=== PATIENT | male | born 1955 | race Caucasian/White ===

== ENCOUNTER 2023-11-26 11:55 | Outpatient (OUT) | payer MEDICARE, SELFPAY ==
--- NOTE | 2023-11-26 12:04 | XR_ITS ---
The [address] [address] Patient Name: VASHTI MASSEY MRN: [id number] date: 1955 Sex: M Assigned Patient Location: RAD Current Patient Location: RAD Accession/Order Number: [id number] Exam Date: 11/26/2023 12:10 Report Date: 11/26/2023 12:32 At the request of: ELEAZAR MAYORGA Procedure: XR hand RT min 3V PROCEDURE: XR wrist RT min 3V, XR hand RT min 3V COMPARISON: None. HISTORY: Cerebral atherosclerosis I67.2 FINDINGS: BONES:No acute fracture or dislocation. Contour deformity of the scaphoid with a single surgical anchor in the distal pole. Moderate to severe degenerative changes with [id number] articulation of the radial lunate joint. Marginal osteophyte formation. SOFT TISSUES:Negative. No visible soft tissue swelling. EFFUSION:None visible. 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
--- NOTE | 2023-11-26 12:05 | XR_ITS ---
The [address] [address] Patient Name: VASHTI MASSEY MRN: [id number] date: 1955 Sex: M Assigned Patient Location: RAD Current Patient Location: RAD Accession/Order Number: [id number] Exam Date: 11/26/2023 12:10 Report Date: 11/26/2023 12:32 At the request of: ELEAZAR MAYORGA Procedure: XR wrist RT min 3V PROCEDURE: XR wrist RT min 3V, XR hand RT min 3V COMPARISON: None. HISTORY: Cerebral atherosclerosis I67.2 FINDINGS: BONES:No acute fracture or dislocation. Contour deformity of the scaphoid with a single surgical anchor in the distal pole. Moderate to severe degenerative changes with [id number] articulation of the radial lunate joint. Marginal osteophyte formation. SOFT TISSUES:Negative. No visible soft tissue swelling. EFFUSION:None visible. 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
== END 2023-11-26 11:56 | disposition home or self-care (01) ==
PROVIDERS: PCP Internal Medicine; Visit Provider Internal Medicine
DX: I67.2 Cerebral atherosclerosis (principal); S60.221A Contusion of right hand, initial encounter
CPT/HCPCS: 73110; 73130

== ENCOUNTER 2024-03-31 10:53 | Observation (INO) | payer MEDICARE, SELFPAY ==
[2024-03-31] VITALS (34 sets, daily range): BP systolic 116–174; BP diastolic 52–89; PULSE 65–88; TEMP 36.4–36.6; O2SAT 81–99; BMI 36.0; BMI 36.9
--- NOTE | 2024-03-31 11:01 | ED.GENADUL1 ---
HPI HPI - General Adult General Chief complaint: Extremity Injury, Lower Stated complaint: CLINIC REFERRAL Time Seen by Provider: 03/31/24 11:00 History of Present Illness HPI narrative: The patient is sent to us from his primary care doctor office, he had a fall almost a week ago when his left knee that he have a history of replacement of the knee in 2010. He developed infection on top of the knee and the p.o. antibiotic was not sufficient to controlling his symptoms. Yesterday he noticed some increase in the swelling and the pain as well as redness, no fever no chills no other concerns Related Data Home Medications ?Medication ?Instructions ?Recorded ?Confirmed aspirin 81 mg tablet,delayed mg 03/31/24 release atorvastatin 40 mg tablet mg 03/31/24 doxycycline hyclate 100 mg capsule mg 03/31/24 flash glucose scanning reader 03/31/24 03/31/24 (FreeStyle Kathie [employer]) flash glucose sensor (FreeStyle 03/31/24 03/31/24 Kathie 2 Sensor kit) insulin aspart U-100 100 unit/mL subcut 03/31/24 (3 mL) subcutaneous pen (Novolog FlexPen U-100 Insulin aspart) insulin glargine 100 unit/mL (3 unit subcut 03/31/24 mL) subcutaneous pen (Lantus Solostar U-100 Insulin) insulin syringe-needle U-100 1 mL 03/31/24 03/31/24 30 gauge x 7/16 losartan 25 mg tablet mg 03/31/24 meloxicam 15 mg tablet mg 03/31/24 Allergies Allergy/AdvReac Type Severity Reaction Status Date / Time No Known Drug Allergies Allergy Verified 03/31/24 11:00 Opioid HPI Opioid Management Most Recent Opioid Data: Last Pain Scale 5 03/31/24 11:23 Review of Systems ROS Status of ROS 10 or more systems reviewed and unremarkable except as noted in history and below Exam Narrative Exam Narrative: Nurses notes and vital signs reviewed and patient is not hypoxic. General: Well-appearing and in no apparent distress. Skin: Warm, dry, no pallor noted. No rash. Head: Normocephalic, atraumatic. Neck: Supple, non-tender. Eye: Pupils are equal, round and EOMI. No scleral icterus. Ears, Nose, Mouth, and Throat: TM are clear, no nasal mucosal hypertrophy. Oral mucosa is moist, no posterior oropharynx erythema, uvula is mid-line Cardiovascular: Regular Rate and Rhythm without murmur, gallop or rub. Respiratory: No accessory muscle use or respiratory distress. Lungs are clear to auscultation, no wheezing, rales or rhonchi Chest Wall: no tenderness Back: No midline thoracic or lumbar vertebral tenderness. No CVA tenderness Musculoskeletal: Left knee examination showed a scar of previous surgery that is healing but the patient at the mid of the knee just at the patella he have a area of almost 5 x 7 cm elevated with the middle with showing entrance point that is healing with an ulcer that is 1 cm stage II. The patient had fluctuation and the surrounding redness almost 3 to 4 cm from the elevation with mild tenderness and the patient also have swelling of the left lower extremity with 1+ pitting edema GI: Abdomen is soft, non-distended. Normal bowel sounds. No masses appreciated. No tenderness to palpation. No rebound, guarding, or rigidity noted. Neurological: A&O x4. No cranial nerve dysfunction observed. No truncal ataxia. Moves all extremities. Sensation intact. Psychiatric: Cooperative and interactive. Normal mood and affect. Constitutional Vital Signs, click to edit/add: Last Vital Signs Temp 97.7 F 03/31/24 11:00 Pulse 88 03/31/24 12:57 Resp 16 03/31/24 12:57 BP 174/73 H 03/31/24 14:15 Pulse Ox 97 03/31/24 14:15 O2 Del Method Room Air 03/31/24 11:00 Course Vital Signs Vital signs: Vital Signs Temperature 97.7 F 03/31/24 11:00 Pulse Rate 69 03/31/24 11:00 Respiratory Rate 16 03/31/24 11:00 Blood Pressure 152/86 H 03/31/24 11:00 Pulse Oximetry 97 03/31/24 11:00 Oxygen Delivery Method Room Air 03/31/24 11:00 Temperature 97.7 F 03/31/24 11:00 Pulse Rate 88 03/31/24 12:57 Respiratory Rate 16 03/31/24 12:57 Blood Pressure 174/73 H 03/31/24 14:15 Pulse Oximetry 97 03/31/24 14:15 Oxygen Delivery Method Room Air 03/31/24 11:00 Medical Decision Making MDM Narrative Medical decision making narrative: Patient CBC showed normal cytosis on the chemistry was within normal Clinical examination shows a high suspicion for abscess and an x-ray showed possibility of abscess or hematoma CAT scan with contrast shows bursitis The patient already had a blood culture obtained and Vanc and Zosyn started The patient case was discussed with and he requested the patient to be admitted under medicine he will evaluate the patient tonight in case he needs surgery tomorrow The patient case discussed with Dr. Lamb and he agreed with above-mentioned plan Lab Data Labs: Lab Results 03/31/24 03/31/24 Range/Units 11:34 11:45 WBC 5.2 (4.0-11.0) 10^3/uL RBC 4.45 L (4.70-6.10) 10^6/uL Hgb 13.5 L (14.0-18.0) g/dL Hct 39.4 L (42.0-54.0) % MCV 88.5 (80.0-94.0) fL MCH 30.3 (25.9-34.0) pg MCHC 34.3 (29.9-35.2) g/dL RDW 13.4 (11.0-15.0) % Plt Count 224 (150-450) 10^3/uL MPV 8.9 L (9.5-13.5) fL Neut % (Auto) 51.7 (43.0-75.0) % Lymph % (Auto) 33.9 (20.5-60.0) % Lamar % (Auto) 8.5 (1.7-12.0) % Eos % (Auto) 4.5 (0.9-7.0) % Baso % (Auto) 1.4 (0.2-2.0) % Neut # (Auto) 2.7 (1.4-6.5) 10^3/uL Lymph # (Auto) 1.8 (1.2-3.8) 10^3/uL Lamar # (Auto) 0.4 (0.3-0.8) 10^3/uL Eos # (Auto) 0.2 (0.0-0.7) 10^3/uL Baso # (Auto) 0.1 (0.0-0.1) 10^3/uL Abs Immat Gran (auto) 0.00 (0.00-0.03) 10^3/uL Imm/Tot Granulo (auto) 0.0 (0.0-0.5) % Sodium 139 (136-145) mmol/L Potassium 4.0 (3.5-5.1) mmol/L Chloride 101 (98-107) mmol/L Carbon Dioxide 28.8 (21.0-32.0) mmol/L Anion Gap 13.2 BUN 18.0 (7.0-18.0) mg/dL Creatinine 0.79 (0.70-1.30) mg/dL Est GFR ( Amer) >60 (>=60) Est GFR (Non-Af Amer) >60 (>=60) BUN/Creatinine Ratio 22.8 Glucose 74 (74-106) mg/dL Lactate 1.1 (0.4-2.0) mmol/L Calcium 8.9 (8.5-10.1) mg/dL Total Bilirubin 0.6 (0.2-1.0) mg/dL AST 12 L (15-37) U/L ALT 22 (16-63) U/L Alkaline Phosphatase 81 (46-116) U/L Total Protein 7.1 (6.4-8.2) g/dL Albumin 3.8 (3.4-5.0) g/dL Globulin 3.3 g/dL Albumin/Globulin Ratio 1.2 Discharge Plan Discharge Chief Complaint: Extremity Injury, Lower Clinical Impression: Cellulitis of knee, Inadequate response to therapy Bursitis Qualifiers: Bursitis location: knee Knee bursitis location: prepatellar bursitis Laterality: left Qualified Code(s): M70.42 - Prepatellar bursitis, left knee Patient Disposition: Admitted As Inpatient Time of Disposition Decision: 15:33
--- OUTSIDE RECORDS SUMMARY | 2024-03-31 11:08 | XMS_ITS | CCD ---
Author Organization [facility] Care Team Providers Care 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 Name Role Phone GREG, DR BUSH Primary Care Unavailable BALL, DR BUSH Attending Unavailable BALL, DR BUSH Admitting Unavailable BALL, DR BUSH Primary Care Unavailable BALL, DR BUSH Attending Unavailable BALL, DR BUSH Admitting Unavailable Ball Vinnie ESTRADA Primary Care Provider KONG GALLEGOS Referring Unavailable VINNIE GARZA Primary Care Unavailable Vinnie Garza Unavailable JASON RODRIGUEZ Attending Unavailable MALORIE YEBOAH Attending Unavailable VINNIE GARZA Referring Unavailable VINNIE GARZA Primary Care Unavailable MALORIE YEBOAH Referring Unavailable GREG, VINNIE Graham Primary Care Unavailable MALORIE YEBOAH Attending Unavailable MALORIE YEBOAH Referring Unavailable VINNIE GARZA Primary Care Unavailable TAWANNA, EHAD Attending Unavailable VINNIE GARZA Referring Unavailable GREG, VINNIE Graham Primary Care Unavailable SRAAH BARRETT Attending Unavailable VINNIE GARZA Primary Care Unavailable INPATIENT, TELENEUROLOGY Consulting Unavail able ABEBE ROLLINS Admitting Unavailab MALORIE Boyd Referring Unavailable VINNIE GARZA Primary Care Unavailable SARAH BARRETT Attending Unavailable SARAH BARRETT Referring Unavailable VINNIE GARZA Primary Care Unavailable HAMMAD PATEL Attending Unavailable HAMMAD PATEL Referring Unavailable VINNIE GARZA Primary Care Unavailable KONG GALLEGOS Attending Unavailable KONG GALLEGOS Referring Unavailable GREG, VINNIE Graham Primary Care Unavailable KONG GALLEGOS Attending Unavailable KONG GALLEGOS Referring Unavailable GREG, VINNIE Graham Primary Care Unavailable GREG, VINNIE Graham Referring Unavailable GREG, VINNIE Graham Primary Care Unavailable MALORIE YEBOAH Referring Unavailable GREG, VINNIE Graham Primary Care Unavailable Medications Current Medications Medication Drug Class(es) Dates Sig (Normalized) Sig (Original) aspirin 81 mg delayed release oral tablet (10 sources) Platelet Aggregation Inhibitor, Nonsteroidal Anti-inflammatory Drug Start: 01-22-2024 take 81 mg by mouth once daily Aspirin Active 81 MG PO Daily January 22, 2024 12:00am Start: 10-30-2023 take 1 tablet by piyush th in the morning aspirin 81 mg Take 1 tablet (81 mg total) by mouth in the morning. 30 tablet 1 10/30/2023 Active atorvastatin 40 mg oral tablet (10 sources) HMG-CoA Reductase Inhibitor Start: 01-22-2024 take 40 mg by mouth once daily Atorvastatin Active 40 MG PO Daily January 22, 2024 12:00am Start: 10-29-2023 take 1 tablet by piyush th once daily atorvastatin (LIPITOR) 40 mg tablet Take 1 tablet (40 mg total) by mouth nightly. 30 tablet 1 10/29/2023 Active Blood-Glucose Meter,Continuous (Freestyle Kathie 3 Thiells) misc (1 source) Start: 03-01-2024 Blood-Glucose Meter,Continuous (Freestyle Kathie 3 Thiells) misc Active 0 .Route 1 March 01, 2024 12:00am to test daily Blood-Glucose Sensor (Freestyle Kathie 3 Sensor) device (1 source) Start: 03-01-2024 Blood-Glucose Sensor (Freestyle Kathie 3 Sensor) device Active 0 .Route 2 March 01, 2024 12:00am to test blood sugar daily clopidogrel 75 mg oral tablet (5 sources) P2Y12 Platelet Inhibitor Start: 01-22-2024 take 1 tablet by mouth once daily Clopidogrel (Plavix) 75 mg tablet Active 75 MG PO Daily January 22, 2024 12:00am Start: 10-30-2023 End: 12-11-2023 take 1 tablet by mouth in the morning clopidogreL (PLAVIX) 75 mg tablet Take 1 tablet (75 mg total) by mouth in the morning. 30 tablet 1 10/30/2023 12/11/2023 Discontinued (Therapy completed) FreeStyle Kathie 2 Thiells - (4 sources) Start: 11-26-2023 FreeStyle Libr e 2 Thiells - Use to test home BS transcutaneous 4x daily for 365 days Oct, Active FreeStyle Kathie 2 Sensor - (4 sources) Start: 11-26-2023 FreeStyle Libr e 2 Sensor - Use to check home BS transcutaneous 4x daily for 30 days Oct, Active Insulin Admin Supplies - (2 sources) Start: 12-01-2023 Insulin Admin Supplies - as directed to use for insulin for 30 days Nov, Active Insulin Aspart U-100 (Novolog Flexpen U-100 Insulin) 100 unit/mL (3 mL) insulin pen (2 sources) Start: 01-22-2024 Insulin Aspart U-100 (Novolog Flexpen U-100 Insulin) 100 unit/mL (3 mL) insulin pen Active 1 sliding scale dose SUBCUT Use as Directed January 22, 2024 12:00am 3 ml insulin aspart, human 100 unt/ml pen injector (4 sources) Insulin Analog NovoLOG FlexPen 100 UNIT/ML 15units Subcutaneous tid for 30 days Active 3 ml insulin glargine 100 unt/ml pen injector (8 sources) Insulin Analog Start: 12-01-2023 Lantus SoloSta r 100 UNIT/ML 15u Subcutaneous q HS for 30 days Nov, Active Start: 10-29-2023 inject 15 [IU] by guzman bcutaneous injection in the morning insulin glargine (LANTUS, SEMGLEE) 100 unit/mL (3 mL) insulin pen Inject 15 Units under the skin in the morning and 15 Units before bedtime. 15 mL 12 10/29/2023 Active Start: 10-29-2023 inject 15 [IU] by guzman bcutaneous injection in the morning insulin glargine (LANTUS, SEMGLEE) 100 unit/mL (3 mL) insulin pen Inject 15 Units under the skin in the morning and 15 Units before bedtime. 15 mL 12 10/29/2023 Active inject 15 [IU] by guzman bcutaneous injection twice daily Lantus 100 UNIT/ML 15 units Subcutaneous bid for 30 days Active Insulin Glargine (Lantus U-100 Insulin) 100 unit/mL solution (2 sources) Start: 01-22-2024 inject 15 [IU] by subcutaneous injection twice daily Insulin Glargine (Lantus U-100 Insulin) 100 unit/mL solution Active 15 UNIT SUBCUT Twice daily January 22, 2024 12:00am 3 ml insulin lispro 100 unt/ml pen injector (2 sources) Insulin Analog Start: 10-29-2023 insulin lispro (HumaLOG) 100 unit/mL insulin pen Inject 2-10 Units under the skin 4 (four) times a day with meals and nightly. 151-200, give 2 units. 201-250, give 4 units. 251-300, give 6 units. 301-350, give 8 units. 351-400, give 10 units. 15 mL 12 10/29/2023 Active insulin lispro (HumaLOG) 100 unit/mL insulin pen (2 sources) Start: 10-29-2023 insulin lispro (HumaLOG) 100 unit/mL insulin pen Inject 2-10 Units under the skin 4 (four) times a day with meals and nightly. 151-200, give 2 units. 201-250, give 4 units. 251-300, give 6 units. 301-350, give 8 units. 351-400, give 10 units. 15 mL 12 10/29/2023 Active losartan potassium 25 mg oral tablet (2 sources) Angiotensin 2 Receptor Michael Start: 01-23-2024 take 25 mg by mouth once daily Losartan Active 25 MG PO Daily January 23, 2024 12:00am meloxicam 15 mg oral tablet (1 source) Nonsteroidal Anti-inflammatory Drug Start: 12-30-2023 take 1 tablet by mouth in the morning meloxicam (MOBIC) 15 mg tablet Indications: Arthritis of right knee Take 1 tablet (15 mg total) by mouth in the morning. 30 tablet 2 12/30/2023 Active Completed/Discontinued Medications Medication Drug Class(es) Dates Sig (Normalized) Sig (Original) carvedilol 3.125 mg oral tablet (4 sources) alpha-Adrenergic Michael, beta-Adrenergic Michael Start: 07-24-2021 take 1 tablet by mouth every twelve hours Carvedilol 3.125 MG 1 tablet with food Orally Twice a day for 30 days Jun, Not-Taking/PRN glimepiride 4 mg oral tablet (4 sources) Sulfonylurea Start: 06-15-2022 take 1 tablet by mouth once daily as needed Glimepiride 4MG Glimepiride 4MG, 1 (one) Tablet daily, 30 minutes prior to bkfst # 90, 06/15/2022, No Refill. Active Oral daily, 30 minutes prior to bkfst for 90 May, Not-Taking/PRN lisinopril 5 mg oral tablet (4 sources) Angiotensin Converting Enzyme Inhibitor Start: 10-16-2015 take 1 tablet by mouth every twenty-four hours Lisinopril 5 MG 1 tablet Orally Once a day for 0 days Sep, Not-Taking/PRN metFORMIN hydrochloride 1000 mg oral tablet (4 sources) Biguanide Start: 07-03-2021 metFORMIN HCl 1000MG metFORMIN HCl 1000MG, 1 (one) Tablet Before bkfst and evening meal # 180, 07/03/2021, Ref. x3. Active Oral Before bkfst and evening meal for 90 *Pick strength-form from [employer] for eRX* 07 Jun, 2021 Not-Taking/PRN NovoLIN 70/30 FlexPen Relion (70-30) 100UNIT/ML (4 sources) Start: 08-10-2020 inject 10 [IU] by subcutaneous injection at dinner NovoLIN 70/30 FlexPen Relion (70-30) 100UNIT/ML NovoLIN 70/30 FlexPen Relion (70-30) 100UNIT/ML, 20 unit SC 30 minutes prior to bkfst and 10 unit SC prior to evening meal # 5, 08/10/2020, Ref. x2. 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] Onset: 10-28-2023 10-31-2023 Chronic Diabetes mellitus with complications (20 sources) Type 2 diabetes mellitus; 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: [Type 2 diabetes mellitus with hyperglycemia] Onset: 10-28-2023 10-28-2023 Chronic Diabetes mellitus without complication (1 source) Type 2 diabetes mellitus without complications; 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: [Type 2 diabetes mellitus without complications] Onset: 11-05-2023 Chronic Disorders of lipid metabolism (17 sources) Mixed hyperlipidemia; 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: [Mixed hyperlipidemia] Onset: 10-28-2023 10-28-2023 Chronic Essential hypertension (10 sources) Essential hypertension; 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: [Essential (primary) hypertension] Chronic Late effects of cerebrovascular disease (4 sources) Sequela of cerebrovascular accident; 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: [Unspecified sequelae of cerebral infarction] Onset: 12-11-2023 12-11-2023 Chronic Osteoarthritis (6 sources) Arthritis of right knee; 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: [Unilateral primary osteoarthritis, right knee] Onset: 12-30-2023 12-30-2023 Chronic Other aftercare (4 sources) Long-term current use of insulin; 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: [skilled nursing (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 insulin] Episodic Other and ill-defined cerebrovascular disease (1 source) Cerebrovascular disease; 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: [Other cerebrovascular vasospasm and vasoconstriction] 10-31-2023 Chronic Other and ill-defined cerebrovascular disease (1 source) Other cerebrovascular vasospasm and vasoconstriction; 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: [Other cerebrovascular vasospasm and vasoconstriction] Onset: 10-31-2023 Chronic Other and ill-defined cerebrovascular disease (6 sources) Cerebral atherosclerosis; 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: [Cerebral atherosclerosis] 01-22-2024 Chronic Other and ill-defined cerebrovascular disease (4 sources) Cerebral atherosclerosis; 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: [Cerebral atherosclerosis] Chronic Other circulatory disease (1 source) Personal history of transient ischemic attack (TIA), and cerebral infarction without residual deficits Episodic Other nervous system disorders (3 sources) Abnormal gait; 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: [Unsteadiness on feet] Onset: 12-11-2023 12-11-2023 Episodic Other nervous system disorders (1 source) Unsteadiness on feet; 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: [Unsteadiness on feet] Onset: 12-11-2023 Episodic Other non-traumatic joint disorders (3 sources) Pain in right knee; 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: [Pain in joint, lower leg] Onset: 12-30-2023 12-30-2023 Episodic Residual codes; unclassified (4 sources) Altered mental status; 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: [Altered mental status, unspecified] Onset: 10-26-2023 10-28-2023 Episodic Residual codes; unclassified (1 source) Pain Onset: 12-30-2023 Episodic Substance-related disorders (10 sources) Nicotine dependence; 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: [Nicotine dependence, cigarettes, uncomplicated] Chronic Superficial injury; contusion (2 sources) Contusion of right wrist, initial encounter; 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: [Contusion of right hand, initial encounter] Episodic Unclassified (1 source) Blurred Vision, Facial Droop Onset: 10-26-2023 Past or Other Problems Problem Classification Problem Date Documented Date Episodic/Chronic Blindness and vision defects (7 sources) Blurring of visual image; 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: [Other visual disturbances] Onset: 10-26-2023 10-28-2023 Episodic Mood disorders (2 sources) Mood disorders Onset: 12-11-2023 12-11-2023 Other aftercare (3 sources) 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; 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: [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] Onset: 10-28-2023 Episodic Residual codes; unclassified (2 sources) Transient alteration of awareness; 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: [Transient alteration of awareness] Onset: 10-28-2023 12-11-2023 Episodic Residual codes; unclassified (1 source) Altered mental status, unspecified; 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: [Altered mental status, unspecified] Onset: 10-28-2023 Episodic Residual codes; unclassified (1 source) Hallucinations Onset: 10-26-2023 Episodic Results Test Name Value Interpretation Reference Range Facility XR Knee - right 4 Viewson Findings: Standing AP, Kennedy, lateral, and sunrise views of the right knee were obtained and reviewed by myself in clinic today. The patient has tricompartmental osteoarthritis mostly involving the medial compartment (s). There is 100% joint space narrowing, subchondral cysts, subchondral sclerosis, and peripheral osteophyte formation. The patient's osteoarthritis is Kellgren Izaiah Grade 4: Large osteophytes and marked joint space narrowing and severe sclerosis and definite bone end deformity. No evidence of fracture or other osseous abnormality. Impression: Severe osteoarthritis of the right knee with complete loss of medial compartment joint space and varus deformity. MANUALLY TRANSCRIBED RESULTS [facility] Radiology Study observation (narrative) [facility] BASIC METABOLIC PANLon 11-05 Anion gap [Moles/Vol] 11 mmol/L Normal - [facility] Comment on above: Performed By: #### P INR, 49582-8, CMP, 31756-4, 6873-4, 45579-5, CBCA, 4548-4 #### [facility] ([id number]) [address] [place] [address] #### HA1C #### [facility] ([id number]) [address], [address] [place] [address] Calcium [Mass/Vol] 8.8 mg/dL Normal 8.5-10.5 [facility] Comment on above: Performed By: #### P INR, 58027-5, CMP, 00101-2, 6873-4, 55794-0, CBCA, 4548-4 #### [facility] ([id number]) [address] [place] [address] #### HA1C #### [facility] ([id number]) [address], [address] [place] [address] Chloride [Moles/Vol] 96 mmol/L Low 98-109 [facility] Comment on above: Performed By: #### P INR, 45003-8, CMP, 90484-5, 6873-4, 53976-1, CBCA, 4548-4 #### [facility] ([id number]) [address] [place] [address] #### HA1C #### [facility] ([id number]) [address], [address] [place] [address] CO2 [Moles/Vol] 24 mmol/L Normal 22-32 [facility] Comment on above: Performed By: #### P INR, 54946-2, CMP, 88250-1, 6873-4, 16262-5, CBCA, 4548-4 #### [facility] ([id number]) [address] [place] [address] 15210 #### HA1C #### [facility] ([id number]) [address], [address] [place] [address] Creatinine [Mass/Vol] 0.75 mg/dL Normal 0.70-1.20 [facility] Comment on above: Result Comment: METH OD TRACEABLE TO IDMS STANDARD Performed By: #### P INR, 68320-3, CMP, 94448-4, 6873-4, 93756-8, CBCA, 4548-4 #### [facility] ([id number]) [address] [place] [address] #### HA1C #### [facility] ([id number]) [address] [facility], [address] [place] [address] eGFR (CKD-EPI) NON-RACE DEPENDENT >90 Normal >59 [facility] Comment on above: Result Comment: Reported eGFR is based on the CKD-EPI 2020 equation that does not use a race coefficient. Performed By: #### P INR, 33902-9, CMP, 14915-1, 6873-4, 28875-4, CBCA, 4548-4 #### [facility] ([id number]) [address] [place] [address] #### HA1C #### [facility] ([id number]) [facility], [address] [place] [address] Glucose [Mass/Vol] 263 mg/dL High 65-99 [facility] Comment on above: Performed By: #### P INR, 60137-3, CMP, 05192-1, 6873-4, 27485-5, CBCA, 4548-4 #### [facility] ([id number]) [address] [place] [address] 55666 #### HA1C #### [facility] ([id number]) [address] [place] [address], [address] [place] [address] Potassium [Moles/Vol] 4.2 mmol/L Normal 3.5-5.0 [facility] Comment on above: Performed By: #### P INR, 92105-8, CMP, 54770-9, 6873-4, 10002-0, CBCA, 4548-4 #### [facility] ([id number]) [address] [place] [address] #### HA1C #### [facility] ([id number]) [address], [address] [place] [address] Sodium [Moles/Vol] 131 mmol/L Low 134-146 [facility] Comment on above: Performed By: #### P INR, 10532-3, CMP, 56719-5, 6873-4, 51163-7, CBCA, 4548-4 #### [facility] ([id number]) [address] [place] [address] 9[address] #### HA1C #### [facility] ([id number]) [address], [address] [place] [address] Urea nitrogen [Mass/Vol] 21 mg/dL Normal 5-27 [facility] Comment on above: Performed By: #### P INR, 95157-8, CMP, 24597-8, 6873-4, 70859-0, CBCA, 4548-4 #### [facility] ([id number]) [address] [place] [address] 36914 #### HA1C #### [facility] ([id number]) [address], [address] [place] [address] CBC AND AUTO DIFFon 10-29-19 Erythrocyte distribution width (RBC) [Ratio] 13.8 % Normal 11.5-15.0 [facility] Comment on above: Performed By: #### P INR, 43412-1, CMP, 66794-7, 6873-4, 19180-2, CBCA, 4548-4 #### [facility] ([id number]) [address] [place] [address] 30811 #### HA1C #### [facility] ([id number]) [address] [facility], [address] [place] [address] Hematocrit (Bld) [Volume fraction] 46.7 % Normal 39-49 [facility] Comment on above: Performed By: #### P INR, 53771-4, CMP, 69073-0, 6873-4, 61985-0, CBCA, 4548-4 #### [facility] ([id number]) [address] [place] [address] #### HA1C #### [facility] ([id number]) [address] [facility] [facility] [address] [place] [address] Hemoglobin (Bld) [Mass/Vol] 16.0 g/dL Normal 13.0-17.0 [facility] Comment on above: Performed By: #### P INR, 62180-5, CMP, 23180-8, 6873-4, 54764-4, CBCA, 4548-4 #### [facility] ([id number]) [address] [place] [address] 12756 #### HA1C #### [facility] ([id number]) [address] [place] [address] LYMPHOCYTE, ATYPICAL 8.8 % Normal [facility] Comment on above: Performed By: #### P INR, 27295-8, CMP, 00489-1, 6873-4, 49661-8, CBCA, 4548-4 #### [facility] ([id number]) [address] [place] [address] 27218 #### HA1C #### [facility] ([id number]) [address] [place] [address] Lymphocytes (Bld) [#/Vol] 1.9 10*3/uL Normal 1.0-3.5 [facility] Comment on above: Performed By: #### P INR, 97480-5, CMP, 27127-4, 6873-4, 48680-3, CBCA, 4548-4 #### [facility] ([id number]) [address] [place] [address] 039[address] #### HA1C #### [facility] ([id number]) [address], [address] [place] [address] Lymphocytes/100 WBC (Bld) 46.1 % Normal [facility] Comment on above: Performed By: #### P INR, 20400-3, CMP, 78938-9, 6873-4, 65111-0, CBCA, 4548-4 #### [facility] ([id number]) [address] [place] [address] 86413 #### HA1C #### [facility] ([id number]) [address], [address] [place] [address] MCH (RBC) [Entitic mass] 29.4 pg Normal 27-34 [facility] Comment on above: Performed By: #### P INR, 71244-9, CMP, 18388-5, 6873-4, 68024-7, CBCA, 4548-4 #### [facility] ([id number]) [address] [place] [address] 00619 #### HA1C #### [facility] ([id number]) [address], [address] [place] [address] MCHC (RBC) [Mass/Vol] 34.2 g/dL Normal 32-36 [facility] Comment on above: Performed By: #### P INR, 28435-7, CMP, 99109-9, 6873-4, 29528-7, CBCA, 4548-4 #### [facility] ([id number]) [address] [place] [address] 02383 #### HA1C #### [facility] ([id number]) [address], [address] [place] [address] MCV (RBC) [Entitic vol] 86 fL Normal 80-100 [facility] Comment on above: Performed By: #### P INR, 47269-6, CMP, 81405-1, 6873-4, 14149-0, CBCA, 4548-4 #### [facility] ([id number]) [address] [place] [address] 65577 #### HA1C #### [facility] ([id number]) [address] [facility], [address] [place] [address] Monocytes (Bld) [#/Vol] 0.2 10*3/uL Normal 0-0.9 [facility] Comment on above: Performed By: #### P INR, 54210-5, CMP, 81155-3, 6873-4, 92263-7, CBCA, 4548-4 #### [facility] ([id number]) [address] [place] [address] 55363 #### HA1C #### [facility] ([id number]) [address] [facility], [address] [place] [address] Monocytes/100 WBC (Bld) 4.9 % Normal [facility] Comment on above: Performed By: #### P INR, 00864-7, CMP, 77961-7, 6873-4, 41146-0, CBCA, 4548-4 #### [facility] ([id number]) [address] [place] [address] 62596 #### HA1C #### [facility] ([id number]) [address] [facility], [address] [place] [address] Neutrophils (Bld) [#/Vol] 1.4 10*3/uL Low 1.5-6.6 [facility] Comment on above: Performed By: #### P INR, 33605-0, CMP, 77908-5, 6873-4, 11537-7, CBCA, 4548-4 #### [facility] ([id number]) [address] [place] [address] 36681 #### HA1C #### [facility] ([id number]) [address], [address] [place] [address] Platelet mean volume (Bld) [Entitic vol] 7.7 fL Normal 7-12 [facility] Comment on above: Performed By: #### P INR, 14615-1, CMP, 74444-4, 6873-4, 14999-2, CBCA, 4548-4 #### [facility] ([id number]) [address] [place] [address] 14386 #### HA1C #### [facility] ([id number]) [address], [address] [place] [address] Platelets (Bld) [#/Vol] 214 10*3/uL Normal 150-450 [facility] Comment on above: Performed By: #### P INR, 64568-5, CMP, 63733-7, 6873-4, 52820-9, CBCA, 4548-4 #### [facility] ([id number]) [address] [place] [address] 85825 #### HA1C #### [facility] ([id number]) [address], [address] [place] [address] RBC COUNT 5.43 X10E12/L Normal 4.10-5.70 [facility] Comment on above: Performed By: #### P INR, 37776-6, CMP, 55053-0, 6873-4, 21707-2, CBCA, 4548-4 #### [facility] ([id number]) [address] [place] [address] 86022 #### HA1C #### [facility] ([id number]) [address], [address] [place] [address] SEG NEUTROPHIL 40.2 % Normal [facility] Comment on above: Performed By: #### P INR, 40158-0, CMP, 53194-6, 6873-4, 80968-2, CBCA, 4548-4 #### [facility] ([id number]) [address] [place] [address] 33023 #### HA1C #### [facility] ([id number]) [address] [facility], [address] [place] [address] WBC (Bld) [#/Vol] 3.4 10*3/uL Low 4.0-11.0 [facility] Comment on above: Performed By: #### P INR, 12457-1, CMP, 17054-5, 6873-4, 93364-0, CBCA, 4548-4 #### [facility] ([id number]) [address] [place] [address] 15439 #### HA1C #### [facility] ([id number]) [address] [facility], [address] [place] [address] COMPREHENSIVE METABOLIC PANE Delonte 10-29-2023 Albumin [Mass/Vol] 4.1 g/dL Normal 3.2-5.3 [facility] Comment on above: Performed By: #### P INR, 63220-2, CMP, 50495-6, 6873-4, 80218-2, CBCA, 4548-4 #### [facility] ([id number]) [address] [place] [address] 37908 #### HA1C #### [facility] ([id number]) [address] [place] [address], [address] [place] [address] ALP [Catalytic activity/Vol] 66 U/L Normal 39-130 [facility] Comment on above: Performed By: #### P INR, 12890-8, CMP, 52336-6, 6873-4, 98256-1, CBCA, 4548-4 #### [facility] ([id number]) [address] [place] [address] 66802 #### HA1C #### [facility] ([id number]) [address], [address] [place] [address] ALT [Catalytic activity/Vol] 27 U/L Normal 0-40 [facility] Comment on above: Performed By: #### P INR, 91297-6, CMP, 06189-6, 6873-4, 19098-1, CBCA, 4548-4 #### [facility] ([id number]) [address] [place] [address] 01920 #### HA1C #### [facility] ([id number]) [address] [facility], [address] [place] [address] Anion gap [Moles/Vol] 9 mmol/L Normal 5-15 [facility] Comment on above: Performed By: #### P INR, 57307-6, CMP, 17781-5, 6873-4, 78638-2, CBCA, 4548-4 #### [facility] ([id number]) [address] [place] [address] 78433 #### HA1C #### [facility] ([id number]) [address], [address] [place] [address] AST [Catalytic activity/Vol] 19 U/L Normal 0-41 [facility] Comment on above: Performed By: #### P INR, 04935-8, CMP, 76134-9, 6873-4, 56700-0, CBCA, 4548-4 #### [facility] ([id number]) [address] [place] [address] 61594 #### HA1C #### [facility] ([id number]) [address], [address] [place] [address] Bilirubin [Mass/Vol] 0.7 mg/dL Normal 0.3-1.2 [facility] Comment on above: Performed By: #### P INR, 90461-2, CMP, 87976-6, 6873-4, 79570-4, CBCA, 4548-4 #### [facility] ([id number]) [address] [place] [address] 90531 #### HA1C #### [facility] ([id number]) [address], [address] [place] [address] Calcium [Mass/Vol] 9.1 mg/dL Normal 8.5-10.5 [facility] Comment on above: Performed By: #### P INR, 98991-8, CMP, 21390-8, 6873-4, 34386-9, CBCA, 4548-4 #### [facility] ([id number]) [address] [place] [address] 28855 #### HA1C #### [facility] ([id number]) [address], [address] [place] [address] Chloride [Moles/Vol] 94 mmol/L Low 98-109 [facility] Comment on above: Performed By: #### P INR, 63374-1, CMP, 32969-5, 6873-4, 53837-1, CBCA, 4548-4 #### [facility] ([id number]) [address] [place] [address] 98490 #### HA1C #### [facility] ([id number]) [address], [address] [place] [address] CO2 [Moles/Vol] 28 mmol/L Normal 22-32 [facility] Comment on above: Performed By: #### P INR, 83281-6, CMP, 87509-1, 6873-4, 50485-7, CBCA, 4548-4 #### [facility] ([id number]) [address] [place] [address] 63368 #### HA1C #### [facility] ([id number]) [address] [facility], [address] [place] [address] Creatinine [Mass/Vol] 0.78 mg/dL Normal 0.70-1.20 [facility] Comment on above: Result Comment: METH OD TRACEABLE TO IDMS STANDARD Performed By: #### P INR, 31490-3, CMP, 49714-7, 6873-4, 06795-8, CBCA, 4548-4 #### [facility] ([id number]) [address] [place] [address] 72878 #### HA1C #### [facility] ([id number]) [address] [facility] [facility] [address] [place] [address] eGFR (CKD-EPI) NON-RACE DEPENDENT >90 Normal >59 [facility] Comment on above: Result Comment: Reported eGFR is based on the CKD-EPI 2020 equation that does not use a race coefficient. Performed By: #### P INR, 32512-9, CMP, 96281-4, 6873-4, 96057-3, CBCA, 4548-4 #### [facility] ([id number]) [address] [place] [address] 03117 #### HA1C #### [facility] ([id number]) [address] [facility], [address] [place] [address] Glucose [Mass/Vol] 232 mg/dL High 65-99 [facility] Comment on above: Performed By: #### P INR, 96981-0, CMP, 49812-5, 6873-4, 89236-0, CBCA, 4548-4 #### [facility] ([id number]) [address] [place] [address] 34779 #### HA1C #### [facility] ([id number]) [address] [facility], [address] [place] [address] Potassium [Moles/Vol] 4.1 mmol/L Normal 3.5-5.0 [facility] Comment on above: Performed By: #### P INR, 35645-7, CMP, 75029-9, 6873-4, 67405-2, CBCA, 4548-4 #### [facility] ([id number]) [address] [place] [address] 23878 #### HA1C #### [facility] ([id number]) [address] [facility], [address] [place] [address] Protein [Mass/Vol] 7.1 g/dL Normal 6.0-8.0 [facility] Comment on above: Performed By: #### P INR, 95056-2, CMP, 36810-3, 6873-4, 64215-4, CBCA, 4548-4 #### [facility] ([id number]) [address] [place] [address] 68957 #### HA1C #### [facility] ([id number]) [address] [facility], [address] [place] [address] Sodium [Moles/Vol] 131 mmol/L Low 134-146 [facility] Comment on above: Performed By: #### P INR, 29250-3, CMP, 18807-8, 6873-4, 04548-1, CBCA, 4548-4 #### [facility] ([id number]) [address] [place] [address] 22208 #### HA1C #### [facility] ([id number]) [address] [facility], [address] [place] [address] Urea nitrogen [Mass/Vol] 14 mg/dL Normal 5-27 [facility] Comment on above: Performed By: #### P INR, 53322-4, CMP, 71714-8, 6873-4, 48430-4, CBCA, 4548-4 #### [facility] ([id number]) [address] [place] [address] 19099 #### HA1C #### [facility] ([id number]) [address], [address] [place] [address] MAGNESIUMon 10-29-2023 Magnesium [Mass/Vol] 1.9 mg/dL Normal 1.8-2.6 [facility] Comment on above: Performed By: #### P INR, 23765-6, CMP, 91659-1, 6873-4, 50615-4, CBCA, 4548-4 #### [facility] ([id number]) [address] [place] [address] 64590 #### HA1C #### [facility] ([id number]) [address], [address] [place] [address] CBC AND AUTO DIFFon 10-28-19 ABSOLUTE BASOPHIL 0.1 X10E9/L Normal 0.0-0.2 [facility] Comment on above: Performed By: #### P INR, 97888-7, CMP, 31194-1, 6873-4, 38444-5, CBCA, 4548-4 #### [facility] ([id number]) [address] [place] [address] 03419 #### HA1C #### [facility] ([id number]) [address], [address] [place] [address] ABSOLUTE NEUTROPHIL 1.5 X10E9/L Normal 1.5-6.6 [facility] Comment on above: Performed By: #### P INR, 35985-3, CMP, 93444-8, 6873-4, 46583-0, CBCA, 4548-4 #### [facility] ([id number]) [address] [place] [address] 14615 #### HA1C #### [facility] ([id number]) [address], [address] [place] [address] Basophils/100 WBC (Bld) 1.4 % Normal [facility] Comment on above: Performed By: #### P INR, 63125-3, CMP, 61188-0, 6873-4, 31874-2, CBCA, 4548-4 #### [facility] ([id number]) [address] [place] [address] 68141 #### HA1C #### [facility] ([id number]) [address] [place] [address], [address] [place] [address] Eosinophils (Bld) [#/Vol] 0.1 10*3/uL Normal 0.0-0.4 [facility] Comment on above: Performed By: #### P INR, 79720-1, CMP, 57418-3, 6873-4, 19699-3, CBCA, 4548-4 #### [facility] ([id number]) [address] [place] [address] 19970 #### HA1C #### [facility] ([id number]) [address] [place] [address], [address] [place] [address] Eosinophils/100 WBC (Bld) 3.1 % Normal [facility] Comment on above: Performed By: #### P INR, 86300-7, CMP, 34571-1, 6873-4, 43479-0, CBCA, 4548-4 #### [facility] ([id number]) [address] [place] [address] 38719 #### HA1C #### [facility] ([id number]) [address] [place] [address], [address] [place] [address] Erythrocyte distribution width (RBC) [Ratio] 13.6 % Normal 11.5-15.0 [facility] Comment on above: Performed By: #### P INR, 80033-8, CMP, 03857-9, 6873-4, 78474-4, CBCA, 4548-4 #### [facility] ([id number]) [address] [place] [address] 56722 #### HA1C #### [facility] ([id number]) [address], [address] [place] [address] Hematocrit (Bld) [Volume fraction] 42.8 % Normal 39-49 [facility] Comment on above: Performed By: #### P INR, 40500-6, CMP, 14825-8, 6873-4, 90508-6, CBCA, 4548-4 #### [facility] ([id number]) [address] [place] [address] 75283 #### HA1C #### [facility] ([id number]) [address], [address] [place] [address] Hemoglobin (Bld) [Mass/Vol] 14.9 g/dL Normal 13.0-17.0 [facility] Comment on above: Performed By: #### P INR, 61123-3, CMP, 84387-6, 6873-4, 99904-7, CBCA, 4548-4 #### [facility] ([id number]) [address] [place] [address] 26715 #### HA1C #### [facility] ([id number]) [address], [address] [place] [address] Lymphocytes (Bld) [#/Vol] 1.8 10*3/uL Normal 1.0-3.5 [facility] Comment on above: Performed By: #### P INR, 30528-5, CMP, 22679-4, 6873-4, 83885-8, CBCA, 4548-4 #### [facility] ([id number]) [address] [place] [address] 33448 #### HA1C #### [facility] ([id number]) [address], [address] [place] [address] Lymphocytes/100 WBC (Bld) 46.0 % Normal [facility] Comment on above: Performed By: #### P INR, 85226-0, CMP, 10541-3, 6873-4, 08693-8, CBCA, 4548-4 #### [facility] ([id number]) [address] [place] [address] 81102 #### HA1C #### [facility] ([id number]) [address] [facility], [address] [place] [address] MCH (RBC) [Entitic mass] 29.6 pg Normal 27-34 [facility] Comment on above: Performed By: #### P INR, 89434-5, CMP, 96207-7, 6873-4, 31211-6, CBCA, 4548-4 #### [facility] ([id number]) [address] [place] [address] 69739 #### HA1C #### [facility] ([id number]) [address] [facility], [address] [place] [address] MCHC (RBC) [Mass/Vol] 34.7 g/dL Normal 32-36 [facility] Comment on above: Performed By: #### P INR, 23086-4, CMP, 42295-9, 6873-4, 36726-1, CBCA, 4548-4 #### [facility] ([id number]) [address] [place] [address] 88001 #### HA1C #### [facility] ([id number]) [address] [facility], [address] [place] [address] MCV (RBC) [Entitic vol] 86 fL Normal 80-100 [facility] Comment on above: Performed By: #### P INR, 45410-0, CMP, 44000-7, 6873-4, 43315-3, CBCA, 4548-4 #### [facility] ([id number]) [address] [place] [address] 50563 #### HA1C #### [facility] ([id number]) [address], [address] [place] [address] Monocytes (Bld) [#/Vol] 0.4 10*3/uL Normal 0-0.9 [facility] Comment on above: Performed By: #### P INR, 74846-4, CMP, 84535-4, 6873-4, 11170-0, CBCA, 4548-4 #### [facility] ([id number]) [address] [place] [address] 07660 #### HA1C #### [facility] ([id number]) [address], [address] [place] [address] Monocytes/100 WBC (Bld) 10.4 % Normal [facility] Comment on above: Performed By: #### P INR, 84402-1, CMP, 31835-8, 6873-4, 62503-7, CBCA, 4548-4 #### [facility] ([id number]) [address] [place] [address] 65067 #### HA1C #### [facility] ([id number]) [address], [address] [place] [address] Neutrophils/100 WBC (Bld) 39.1 % Normal [facility] Comment on above: Performed By: #### P INR, 97071-8, CMP, 68127-6, 6873-4, 63001-3, CBCA, 4548-4 #### [facility] ([id number]) [address] [place] [address] 83273 #### HA1C #### [facility] ([id number]) [address], [address] [place] [address] Platelet mean volume (Bld) [Entitic vol] 7.9 fL Normal 7-12 [facility] Comment on above: Performed By: #### P INR, 67190-6, CMP, 41721-4, 6873-4, 49409-5, CBCA, 4548-4 #### [facility] ([id number]) [address] [place] [address] 55355 #### HA1C #### [facility] ([id number]) [address], [address] [place] [address] Platelets (Bld) [#/Vol] 197 10*3/uL Normal 150-450 [facility] Comment on above: Performed By: #### P INR, 15050-7, CMP, 46373-9, 6873-4, 93051-9, CBCA, 4548-4 #### [facility] ([id number]) [address] [place] [address] 86260 #### HA1C #### [facility] ([id number]) [address], [address] [place] [address] RBC COUNT 5.01 X10E12/L Normal 4.10-5.70 [facility] Comment on above: Performed By: #### P INR, 38885-3, CMP, 96207-4, 6873-4, 85176-7, CBCA, 4548-4 #### [facility] ([id number]) [address] [place] [address] 35170 #### HA1C #### [facility] ([id number]) [address], [address] [place] [address] WBC (Bld) [#/Vol] 3.9 10*3/uL Low 4.0-11.0 [facility] Comment on above: Performed By: #### P INR, 20396-7, CMP, 60929-6, 6873-4, 72405-3, CBCA, 4548-4 #### [facility] ([id number]) [address] [place] [address] 05053 #### HA1C #### [facility] ([id number]) [address], [address] [place] [address] COMPREHENSIVE METABOLIC PANE Del[place] 10-28-2023 Albumin [Mass/Vol] 3.8 g/dL Normal 3.2-5.3 [facility] Comment on above: Performed By: #### P INR, 64103-6, CMP, 68258-3, 6873-4, 09256-2, CBCA, 4548-4 #### [facility] ([id number]) [address] [place] [address] 59558 #### HA1C #### [facility] ([id number]) [address], [address] [place] [address] ALP [Catalytic activity/Vol] 61 U/L Normal 39-130 [facility] Comment on above: Performed By: #### P INR, 63391-5, CMP, 05831-6, 6873-4, 46337-7, CBCA, 4548-4 #### [facility] ([id number]) [address] [place] [address] 36958 #### HA1C #### [facility] ([id number]) [address], [address] [place] [address] ALT [Catalytic activity/Vol] 22 U/L Normal 0-40 [facility] Comment on above: Performed By: #### P INR, 87471-9, CMP, 86101-8, 6873-4, 69024-8, CBCA, 4548-4 #### [facility] ([id number]) [address] [place] [address] 37890 #### HA1C #### [facility] ([id number]) [address], [address] [place] [address] Anion gap [Moles/Vol] 10 mmol/L Normal 5-15 [facility] Comment on above: Performed By: #### P INR, 85882-7, CMP, 83791-1, 6873-4, 48911-8, CBCA, 4548-4 #### [facility] ([id number]) [address] [place] [address] 50160 #### HA1C #### [facility] ([id number]) [address], [address] [place] [address] AST [Catalytic activity/Vol] 18 U/L Normal 0-41 [facility] Comment on above: Performed By: #### P INR, 93369-4, CMP, 64577-4, 6873-4, 74250-2, CBCA, 4548-4 #### [facility] ([id number]) [address] [place] [address] 41868 #### HA1C #### [facility] ([id number]) [address], [address] [place] [address] Bilirubin [Mass/Vol] 0.8 mg/dL Normal 0.3-1.2 [facility] Comment on above: Performed By: #### P INR, 04418-1, CMP, 60935-5, 6873-4, 83553-3, CBCA, 4548-4 #### [facility] ([id number]) [address] [place] [address] 32669 #### HA1C #### [facility] ([id number]) [address], [address] [place] [address] Calcium [Mass/Vol] 8.5 mg/dL Normal 8.5-10.5 [facility] Comment on above: Performed By: #### P INR, 11413-5, CMP, 95035-6, 6873-4, 61330-5, CBCA, 4548-4 #### [facility] ([id number]) [address] [place] [address] 80736 #### HA1C #### [facility] ([id number]) [address], [address] [place] [address] Chloride [Moles/Vol] 94 mmol/L Low 98-109 [facility] Comment on above: Performed By: #### P INR, 50355-5, CMP, 98223-4, 6873-4, 35697-6, CBCA, 4548-4 #### [facility] ([id number]) [address] [place] [address] 31892 #### HA1C #### [facility] ([id number]) [address], [address] [place] [address] CO2 [Moles/Vol] 26 mmol/L Normal 22-32 [facility] Comment on above: Performed By: #### P INR, 09400-3, CMP, 25295-2, 6873-4, 69957-4, CBCA, 4548-4 #### [facility] ([id number]) [address] [place] [address] 54728 #### HA1C #### [facility] ([id number]) [address], [address] [place] [address] Creatinine [Mass/Vol] 0.79 mg/dL Normal 0.70-1.20 [facility] Comment on above: Result Comment: METH OD TRACEABLE TO IDMS STANDARD Performed By: #### P INR, 37502-1, CMP, 42175-2, 6873-4, 64398-2, CBCA, 4548-4 #### [facility] ([id number]) [address] [place] [address] 59636 #### HA1C #### [facility] ([id number]) [address], [address] [place] [address] eGFR (CKD-EPI) NON-RACE DEPENDENT >90 Normal >59 [facility] Comment on above: Result Comment: Reported eGFR is based on the CKD-EPI 2020 equation that does not use a race coefficient. Performed By: #### P INR, 78067-8, CMP, 11626-1, 6873-4, 05890-4, CBCA, 4548-4 #### [facility] ([id number]) [address] [place] [address] #### HA1C #### [facility] ([id number]) [address], [address] [place] [address] Glucose [Mass/Vol] 228 mg/dL High 65-99 [facility] Comment on above: Performed By: #### P INR, 34658-9, CMP, 24486-8, 6873-4, 24561-5, CBCA, 4548-4 #### [facility] ([id number]) [address] [place] [address] #### HA1C #### [facility] ([id number]) [address], [address] [place] [address] Potassium [Moles/Vol] 3.7 mmol/L Normal 3.5-5.0 [facility] Comment on above: Performed By: #### P INR, 83375-4, CMP, 89984-1, 6873-4, 39644-3, CBCA, 4548-4 #### [facility] ([id number]) [address] [place] [address] #### HA1C #### [facility] ([id number]) [address], [address] [place] [address] Protein [Mass/Vol] 6.3 g/dL Normal 6.0-8.0 [facility] Comment on above: Performed By: #### P INR, 97801-7, CMP, 49028-5, 6873-4, 80129-3, CBCA, 4548-4 #### [facility] ([id number]) [address] [place] [address] #### HA1C #### [facility] ([id number]) [address], [address] [place] [address] Sodium [Moles/Vol] 130 mmol/L Low 134-146 [facility] Comment on above: Performed By: #### P INR, 83842-5, CMP, 74546-7, 6873-4, 70536-5, CBCA, 4548-4 #### [facility] ([id number]) [address] [place] [address] #### HA1C #### [facility] ([id number]) [address], [address] [place] [address] Urea nitrogen [Mass/Vol] 16 mg/dL Normal 5-27 [facility] Comment on above: Performed By: #### P INR, 11264-9, CMP, 47679-3, 6873-4, 32699-1, CBCA, 4548-4 #### [facility] ([id number]) [address] [place] [address] #### HA1C #### [facility] ([id number]) [address], [address] [place] [address] CT CTA CAROTIDon 10-28-[address] CTA CAROTID Examination: CTA carotids: 10/28/2023 Clinical History:Stroke symptoms. Follow-up. Contrast:100 mL Omnipaque 350 intravenously Comparison:None Procedure: Multidetector CT angiogram performed through the cervical portion of the carotid arteries without complication, including source images and maximum intensity projection 3-D images displayed and reviewed on a PACS workstation by the radiologist. All CT scans at this facility use dose modulation, iterative reconstruction, and/or weight based dosing when appropriate to reduce radiation dose to as low as reasonably achievable. Findings: There is atherosclerotic plaque with calcification at the carotid bifurcation bilaterally. No stenosis is evident. The degree of stenosis was measured comparing the carotid at the level of greatest narrowing to measurement of diameter at the distal normal appearing internal carotid vessels in accordance with the NASCET criteria. There is no intimal flap or other focal vascular irregularity. The vertebral arteries appear within normal limits through the cervical region. There is no cervical soft tissue mass or abnormal fluid collection. The thyroid gland appears within normal limits Degenerative changes are present to the mid cervical region with no subluxation. IMPRESSION: Atherosclerotic changes with no carotid stenosis or acute vascular abnormality in the cervical region. Finalized by Gerard Giles MD on 10/28/2023 12:26 PM Normal [facility] CT CTA HEADon 10-28-[address] CTA HEAD Indication: Slurred speech. Vision. TECHNIQUE: Enhanced CTA of the head is performed utilizing 100 mL IV Omnipaque 350 contrast medium. Multiple 3-D maximum intensity projection images are rendered and reviewed. No prior comparison. Comparison is made to prior MRI of the head dated 10/28/2023. FINDINGS: Intracranial internal carotid arteries are patent. Intracranial vertebral arteries are widely patent. Basilar artery is patent. Orbits appear symmetric. Anterior cerebral arteries, middle cerebral arteries and posterior cerebral arteries appear widely patent. Focal narrowing of right M1 segment noted. Venous dural sinuses enhance normally. Decreased attenuation noted within right periventricular frontal lobe white matter region in area of abnormal restriction by MRI. No significant mass effect identified. IMPRESSION: 1. No large vessel occlusion identified. Focal narrowing of right M1 segment noted moderate to severe. All CT scans at this facility use dose modulation, iterative reconstruction, and/or weight based dosing when appropriate to reduce radiation dose to as low as reasonably achievable. Finalized by Diamond Mayes MD on 10/28/2023 12:38 PM Normal [facility] Glucose Glucometer (BldC) [M ass/Vol]on 10-28-2023 Glucose [Mass/Vol] 226 mg/dL High 65-99 [facility] Glucose [Mass/Vol] 279 mg/dL High 65-99 [facility] Glucose [Mass/Vol] 248 mg/dL High 65-99 [facility] Glucose [Mass/Vol] 221 mg/dL High 65-99 [facility] Lipid 1996 panelon 01-02-202 4 Cholesterol [Mass/Vol] 219 mg/dL High 150-[address] [facility] Comment on above: Performed By: #### P INR, 90587-6, CMP, 91213-5, 6873-4, 93978-1, CBCA, 4548-4 #### [facility] ([id number]) [address] [place] [address] 12305 ###Raquel HA1C #### [facility] ([id number]) [address] [facility], [address] [place] [address] Cholesterol in HDL [Mass/Vol] 43 mg/dL Normal >39 [facility] Comment on above: Result Comment: HDL <40 mg/dL - High Risk HDL > or = 40mg/dL- Desirable HDL >60 mg/dL - Negative Risk Performed By: #### P INR, 07717-0, CMP, 69649-7, 6873-4, 76312-4, CBCA, 4548-4 #### [facility] ([id number]) [address] [place] [address] 13454 #### HA1C #### [facility] ([id number]) [address] [facility], [address] [place] [address] Cholesterol in LDL [Mass/Vol] 143 mg/dL High <130 [facility] Comment on above: Result Comment: LDL <100 mg/dL - Desirable LDL >160 mg/dL - High Risk Performed By: #### P INR, 89555-7, CMP, 36302-2, 6873-4, 09629-0, CBCA, 4548-4 #### [facility] ([id number]) [address] [place] [address] 06801 #### HA1C #### [facility] ([id number]) [address], [address] [place] [address] Cholesterol in VLDL [Mass/Vol] 33 mg/dL High 0-30 [facility] Comment on above: Performed By: #### P INR, 05455-0, CMP, 78852-0, 6873-4, 93087-7, CBCA, 4548-4 #### [facility] ([id number]) [address] [place] [address] 07304 #### HA1C #### [facility] ([id number]) [address] [facility], [address] [place] [address] CHOLESTEROL:HDL 5.1 High 1.0-5.0 [facility] Comment on above: Performed By: #### P INR, 44494-3, CMP, 90106-1, 6873-4, 12588-9, CBCA, 4548-4 #### [facility] ([id number]) [address] [place] [address] 67732 #### HA1C #### [facility] ([id number]) [address] [facility], [address] [place] [address] Triglyceride [Mass/Vol] 164 mg/dL High 27-150 [facility] Comment on above: Performed By: #### P INR, 80331-3, CMP, 48720-5, 6873-4, 36956-8, CBCA, 4548-4 #### [facility] ([id number]) [address] [place] [address] 42732 #### HA1C #### [facility] ([id number]) [address] [facility], [address] [place] [address] MAGNESIUMon 10-28-2023 Magnesium [Mass/Vol] 1.8 mg/dL Normal 1.8-2.6 [facility] Comment on above: Performed By: #### P INR, 49684-0, CMP, 57795-8, 6873-4, 78215-1, CBCA, 4548-4 #### [facility] ([id number]) [address] [facility]], [place] [address] #### HA1C #### [facility] ([id number]) [address] [place] [address], [address] [place] [address] MR BRAIN WO CONTon 4 MR BRAIN WO CONT MR BRAIN WO CONT Clinical history: Recent falls, transient alteration in awareness, weakness, new onset hallucinations. TECHNIQUE: Multiplanar multisequence imaging of the brain was performed without contrast material. COMPARISONS: There are no prior MRIs of the brain for comparison. Unenhanced CT of the brain 10/26/2023 is available. FINDINGS: There is an irregularly marginated area of increased signal intensity within the deep white matter of the right frontal lobe which demonstrates restricted diffusion. There are some punctate areas of restricted diffusion involving the anterior insular cortex as well as posterolateral frontal lobe cortex, however the majority of this process involves the white matter. There is very subtle mass effect, best visualized on the coronal images with subtle mass effect on the lateral margin of the right lateral ventricle. No shift of midline. Brain otherwise appears within normal limits in morphology and signal characteristics for the patient's stated age of 68 years. There is no restricted diffusion elsewhere. There are no signal abnormalities present to suggest parenchymal nor extra-axial hemorrhage. Basal cisterns and fourth ventricle are patent. Midline structures appear unremarkable. There are no fluid collections within the paranasal sinuses nor mastoid air cells. IMPRESSION: 1. Restricted diffusion involves much of the deep white matter of the right frontal lobe with some areas of overlying cortical restricted diffusion as well. While unusual in location, I suspect acute ischemia. This potentially could reflect water shed distribution infarct related to more proximal ICA stenosis. CTA of the carotids and intracranial circulation therefore recommended. THIS REPORT CONTAINS A SIGNIFICANT RESULT AND/OR RECOMMENDATION, WHICH REQUIRES THE ATTENTION OF THE LICENSED CAREGIVER RESPONSIBLE FOR THIS PATIENT. THEREFORE, I SPECIFICALLY DESIGNATED THIS REPORT TO BE TELEPHONED BY THE RADIOLOGY DEPARTMENT. Finalized by Naif Anderson MD on 10/28/2023 10:39 AM Normal [facility] CBC AND AUTO DIFFon 10-27-19 24 ABSOLUTE BASOPHIL 0.0 X10E9/L Normal 0.0-0.2 [facility] Comment on above: Performed By: #### P INR, 15240-6, CMP, 37715-6, 6873-4, 09112-1, CBCA, 4548-4 #### [facility] ([id number]) [address] [place] [address] 09009 #### HA1C #### [facility] ([id number]) [address] [facility], [address] [place] [address] ABSOLUTE NEUTROPHIL 1.8 X10E9/L Normal 1.5-6.6 [facility] Comment on above: Performed By: #### P INR, 50064-3, CMP, 84587-4, 6873-4, 92267-1, CBCA, 4548-4 #### [facility] ([id number]) [address] [place] [address] 75194 #### HA1C #### [facility] ([id number]) [address] [facility], [address] [place] [address] Basophils/100 WBC (Bld) 1.2 % Normal [facility] Comment on above: Performed By: #### P INR, 38707-7, CMP, 28883-7, 6873-4, 84433-9, CBCA, 4548-4 #### [facility] ([id number]) [address] [place] [address] 59528 #### HA1C #### [facility] ([id number]) [address], [address] [place] [address] Eosinophils (Bld) [#/Vol] 0.1 10*3/uL Normal 0.0-0.4 [facility] Comment on above: Performed By: #### P INR, 19444-9, CMP, 55017-3, 6873-4, 55619-0, CBCA, 4548-4 #### [facility] ([id number]) [address] [place] [address] 40042 #### HA1C #### [facility] ([id number]) [address], [address] [place] [address] Eosinophils/100 WBC (Bld) 2.5 % Normal [facility] Comment on above: Performed By: #### P INR, 08930-5, CMP, 00624-3, 6873-4, 51993-2, CBCA, 4548-4 #### [facility] ([id number]) [address] [place] [address] 38389 #### HA1C #### [facility] ([id number]) [address], [address] [place] [address] Erythrocyte distribution width (RBC) [Ratio] 13.5 % Normal 11.5-15.0 [facility] Comment on above: Performed By: #### P INR, 25021-0, CMP, 95854-7, 6873-4, 63756-8, CBCA, 4548-4 #### [facility] ([id number]) [address] [place] [address] 28986 #### HA1C #### [facility] ([id number]) [address], [address] [place] [address] Hematocrit (Bld) [Volume fraction] 43.3 % Normal 39-49 [facility] Comment on above: Performed By: #### P INR, 43362-4, CMP, 18781-7, 6873-4, 64297-1, CBCA, 4548-4 #### [facility] ([id number]) [address] [place] [address] 72448 #### HA1C #### [facility] ([id number]) [address], [address] [place] [address] Hemoglobin (Bld) [Mass/Vol] 14.9 g/dL Normal 13.0-17.0 [facility] Comment on above: Performed By: #### P INR, 75710-5, CMP, 37879-2, 6873-4, 12165-1, CBCA, 4548-4 #### [facility] ([id number]) [address] [place] [address] #### HA1C #### [facility] ([id number]) [address] [facility], [address] [place] [address] Lymphocytes (Bld) [#/Vol] 1.3 10*3/uL Normal 1.0-3.5 [facility] Comment on above: Performed By: #### P INR, 25284-8, CMP, 78990-5, 6873-4, 10307-4, CBCA, 4548-4 #### [facility] ([id number]) [address] [place] [address] 45179 #### HA1C #### [facility] ([id number]) [address], [address] [place] [address] Lymphocytes/100 WBC (Bld) 36.9 % Normal [facility] Comment on above: Performed By: #### P INR, 11666-2, CMP, 90750-2, 6873-4, 46836-6, CBCA, 4548-4 #### [facility] ([id number]) [address] [place] [address] 01088 #### HA1C #### [facility] ([id number]) [address], [address] [place] [address] MCH (RBC) [Entitic mass] 29.3 pg Normal 27-34 [facility] Comment on above: Performed By: #### P INR, 02069-8, CMP, 17076-7, 6873-4, 18958-9, CBCA, 4548-4 #### [facility] ([id number]) [address] [place] [address] 59653 #### HA1C #### [facility] ([id number]) [address], [address] [place] [address] MCHC (RBC) [Mass/Vol] 34.4 g/dL Normal 32-36 [facility] Comment on above: Performed By: #### P INR, 01618-1, CMP, 89344-7, 6873-4, 21217-3, CBCA, 4548-4 #### [facility] ([id number]) [address] [place] [address] 36272 #### HA1C #### [facility] ([id number]) [address], [address] [place] [address] MCV (RBC) [Entitic vol] 85 fL Normal 80-100 [facility] Comment on above: Performed By: #### P INR, 81782-3, CMP, 25114-1, 6873-4, 18325-2, CBCA, 4548-4 #### [facility] ([id number]) [address] [place] [address] 50066 #### HA1C #### [facility] ([id number]) [address], [address] [place] [address] Monocytes (Bld) [#/Vol] 0.3 10*3/uL Normal 0-0.9 [facility] Comment on above: Performed By: #### P INR, 97837-7, CMP, 87588-8, 6873-4, 93059-7, CBCA, 4548-4 #### [facility] ([id number]) [address] [place] [address] 76987 #### HA1C #### [facility] ([id number]) [address], [address] [place] [address] Monocytes/100 WBC (Bld) 8.4 % Normal [facility] Comment on above: Performed By: #### P INR, 42343-3, CMP, 52136-1, 6873-4, 33172-8, CBCA, 4548-4 #### [facility] ([id number]) [address] [place] [address] 16501 #### HA1C #### [facility] ([id number]) [address], [address] [place] [address] Neutrophils/100 WBC (Bld) 51.0 % Normal [facility] Comment on above: Performed By: #### P INR, 13204-6, CMP, 20350-3, 6873-4, 55694-2, CBCA, 4548-4 #### [facility] ([id number]) [address] [place] [address] 56582 #### HA1C #### [facility] ([id number]) [address], [address] [place] [address] Platelet mean volume (Bld) [Entitic vol] 7.7 fL Normal 7-12 [facility] Comment on above: Performed By: #### P INR, 27112-6, CMP, 52951-9, 6873-4, 86228-6, CBCA, 4548-4 #### [facility] ([id number]) [address] [place] [address] 10338 #### HA1C #### [facility] ([id number]) [address], [address] [place] [address] Platelets (Bld) [#/Vol] 192 10*3/uL Normal 150-450 [facility] Comment on above: Performed By: #### P INR, 88406-9, CMP, 28973-0, 6873-4, 15305-1, CBCA, 4548-4 #### [facility] ([id number]) [address] [place] [address] 55562 #### HA1C #### [facility] ([id number]) [address] [facility], [address] [place] [address] RBC COUNT 5.08 X10E12/L Normal 4.10-5.70 [facility] Comment on above: Performed By: #### P INR, 14117-9, CMP, 84693-1, 6873-4, 83243-2, CBCA, 4548-4 #### [facility] ([id number]) [address] [place] [address] 47860 #### HA1C #### [facility] ([id number]) [address] [facility], [address] [place] [address] WBC (Bld) [#/Vol] 3.6 10*3/uL Low 4.0-11.0 [facility] Comment on above: Performed By: #### P INR, 66167-5, CMP, 16099-1, 6873-4, 74477-7, CBCA, 4548-4 #### [facility] ([id number]) [address] [place] [address] 56855 #### HA1C #### [facility] ([id number]) [address] [facility], [address] [place] [address] COMPREHENSIVE METABOLIC PANE [place] 10-27-2023 Albumin [Mass/Vol] 4.0 g/dL Normal 3.2-5.3 [facility] Comment on above: Performed By: #### P INR, 46162-4, CMP, 70927-0, 6873-4, 91377-6, CBCA, 4548-4 #### [facility] ([id number]) [address] [place] [address] 16297 #### HA1C #### [facility] ([id number]) [address] [facility], [address] [place] [address] ALP [Catalytic activity/Vol] 65 U/L Normal 39-130 [facility] Comment on above: Performed By: #### P INR, 25079-7, CMP, 56102-4, 6873-4, 34132-2, CBCA, 4548-4 #### [facility] ([id number]) [address] [place] [address] 81603 #### HA1C #### [facility] ([id number]) [address] [facility], [address] [place] [address] ALT [Catalytic activity/Vol] 21 U/L Normal 0-40 [facility] Comment on above: Performed By: #### P INR, 37507-9, CMP, 29068-6, 6873-4, 09515-8, CBCA, 4548-4 #### [facility] ([id number]) [address] [place] [address] 57301 #### HA1C #### [facility] ([id number]) [address] [facility], [address] [place] [address] Anion gap [Moles/Vol] 4 mmol/L Low 5-15 [facility] Comment on above: Performed By: #### P INR, 10139-3, CMP, 02991-0, 6873-4, 95827-1, CBCA, 4548-4 #### [facility] ([id number]) [address] [place] [address] 11992 #### HA1C #### [facility] ([id number]) [address] [facility], [address] [place] [address] AST [Catalytic activity/Vol] 17 U/L Normal 0-41 [facility] Comment on above: Performed By: #### P INR, 43184-2, CMP, 41016-4, 6873-4, 33374-1, CBCA, 4548-4 #### [facility] ([id number]) [address] [place] [address] 50130 #### HA1C #### [facility] ([id number]) [address] [place] [address] Bilirubin [Mass/Vol] 1.1 mg/dL Normal 0.3-1.2 [facility] Comment on above: Performed By: #### P INR, 62359-0, CMP, 11405-1, 6873-4, 67865-5, CBCA, 4548-4 #### [facility] ([id number]) [address] [place] [address] 71391 #### HA1C #### [facility] ([id number]) [address] [facility], [address] [place] [address] Calcium [Mass/Vol] 8.3 mg/dL Low 8.5-10.5 [facility] Comment on above: Performed By: #### P INR, 51125-4, CMP, 47449-5, 6873-4, 42978-7, CBCA, 4548-4 #### [facility] ([id number]) [address] [place] [address] 59101 #### HA1C #### [facility] ([id number]) [address] [facility], [address] [place] [address] Chloride [Moles/Vol] 101 mmol/L Normal 98-109 [facility] Comment on above: Performed By: #### P INR, 31132-1, CMP, 50373-4, 6873-4, 26166-6, CBCA, 4548-4 #### [facility] ([id number]) [address] [place] [address] 04751 #### HA1C #### [facility] ([id number]) [address] [facility], [address] [place] [address] CO2 [Moles/Vol] 24 mmol/L Normal 22-32 [facility] Comment on above: Performed By: #### P INR, 87090-2, CMP, 48916-7, 6873-4, 69505-8, CBCA, 4548-4 #### [facility] ([id number]) [address] [place] [address] 29329 #### HA1C #### [facility] ([id number]) [address] [facility], [address] [place] [address] Creatinine [Mass/Vol] 0.75 mg/dL Normal 0.70-1.20 [facility] Comment on above: Result Comment: METH OD TRACEABLE TO IDMS STANDARD Performed By: #### P INR, 28100-4, CMP, 87744-1, 6873-4, 48786-7, CBCA, 4548-4 #### [facility] ([id number]) [address] [place] [address] 49089 #### HA1C #### [facility] ([id number]) [address] [facility], [facility] [address] [place] [address] eGFR (CKD-EPI) NON-RACE DEPENDENT >90 Normal >59 [facility] Comment on above: Result Comment: Reported eGFR is based on the CKD-EPI 2020 equation that does not use a race coefficient. Performed By: #### P INR, 80812-7, CMP, 28687-5, 6873-4, 50137-7, CBCA, 4548-4 #### [facility] ([id number]) [address] [place] [address] 81139 #### HA1C #### [facility] ([id number]) [address] [place] [address], [facility] [address] [place] [address] Glucose [Mass/Vol] 272 mg/dL High 65-99 [facility] Comment on above: Performed By: #### P INR, 68068-3, CMP, 48461-8, 6873-4, 34499-8, CBCA, 4548-4 #### [facility] ([id number]) [address] [place] [address] 50667 #### HA1C #### [facility] ([id number]) [address], [address] [place] [address] Potassium [Moles/Vol] 4.1 mmol/L Normal 3.5-5.0 [facility] Comment on above: Performed By: #### P INR, 62657-1, CMP, 23730-8, 6873-4, 58149-2, CBCA, 4548-4 #### [facility] ([id number]) [address] [place] [address] 45023 #### HA1C #### [facility] ([id number]) [address], [address] [place] [address] Protein [Mass/Vol] 6.4 g/dL Normal 6.0-8.0 [facility] Comment on above: Performed By: #### P INR, 29848-4, CMP, 45116-1, 6873-4, 70740-0, CBCA, 4548-4 #### [facility] ([id number]) [address] [place] [address] 50648 #### HA1C #### [facility] ([id number]) [address] [place] [address] Sodium [Moles/Vol] 129 mmol/L Low 134-146 [facility] Comment on above: Performed By: #### P INR, 75233-3, CMP, 77496-5, 6873-4, 55811-5, CBCA, 4548-4 #### [facility] ([id number]) [address] [place] [address] 54492 #### HA1C #### [facility] ([id number]) [address] [facility], [address] [place] [address] Urea nitrogen [Mass/Vol] 20 mg/dL Normal 5-27 [facility] Comment on above: Performed By: #### P INR, 47123-1, CMP, 27742-5, 6873-4, 97242-3, CBCA, 4548-4 #### [facility] ([id number]) [address] [place] [address] 41899 #### HA1C #### [facility] ([id number]) [address] [facility], [address] [place] [address] Glucose Glucometer (BldC) [M ass/Vol]on 10-27-2023 Glucose [Mass/Vol] 293 mg/dL High 65-99 [facility] Glucose [Mass/Vol] 311 mg/dL High 65-99 [facility] Glucose [Mass/Vol] 270 mg/dL High 65-99 [facility] Glucose [Mass/Vol] 280 mg/dL High 65-99 [facility] Glucose [Mass/Vol] 260 mg/dL High 65-99 [facility] MAGNESIUMon 10-27-2023 Magnesium [Mass/Vol] 2.2 mg/dL Normal 1.8-2.6 [facility] Comment on above: Performed By: #### P INR, 97433-6, CMP, 60275-7, 6873-4, 57629-4, CBCA, 4548-4 #### [facility] ([id number]) [address] [place] [address] #### HA1C #### [facility] ([id number]) [address], [address] [place] [address] Beta hydroxybutyrate [Moles/ Vol]on 10-26-2023 BetaHydroxybutyrate 1.69 mmol/L High 0.02-0.27 [facility] Comment on above: Performed By: #### P INR, 48488-8, CMP, 52928-9, 6873-4, 33103-3, CBCA, 4548-4 #### [facility] ([id number]) [address] [place] [address] #### HA1C #### [facility] ([id number]) [address] [place] [address], [address] [place] [address] CBC AND AUTO DIFFon 10-26-20 ABSOLUTE BASOPHIL 0.0 X10E9/L Normal 0.0-0.2 [facility] Comment on above: Performed By: #### P INR, 72418-6, CMP, 69135-8, 6873-4, 07776-3, CBCA, 4548-4 #### [facility] ([id number]) [address] [place] [address] #### HA1C #### [facility] ([id number]) [address] [place] [address], [address] [place] [address] ABSOLUTE NEUTROPHIL 2.5 X10E9/L Normal 1.5-6.6 [facility] Comment on above: Performed By: #### P INR, 02599-0, CMP, 77797-8, 6873-4, 68678-1, CBCA, 4548-4 #### [facility] ([id number]) [address] [place] [address] #### HA1C #### [facility] ([id number]) [address] [place] [address], [address] [place] [address] Basophils/100 WBC (Bld) 1.0 % Normal P [facility] Comment on above: Performed By: #### P INR, 73003-3, CMP, 18891-7, 6873-4, 60657-0, CBCA, 4548-4 #### [facility] ([id number]) [address] [place] [address] #### HA1C #### [facility] ([id number]) [address] [place] [address], [address] [place] [address] Eosinophils (Bld) [#/Vol] 0.1 10*3/uL Normal 0.0-0.4 [facility] Comment on above: Performed By: #### P INR, 70765-0, CMP, 36920-2, 6873-4, 35965-9, CBCA, 4548-4 #### [facility] ([id number]) [address] [place] [address] #### HA1C #### [facility] ([id number]) [address], [address] [place] [address] Eosinophils/100 WBC (Bld) 1.2 % Normal [facility] Comment on above: Performed By: #### P INR, 79186-9, CMP, 93794-2, 6873-4, 15369-8, CBCA, 4548-4 #### [facility] ([id number]) [address] [place] [address] #### HA1C #### [facility] ([id number]) [address], [address] [place] [address] Erythrocyte distribution width (RBC) [Ratio] 13.4 % Normal 11.5-15.0 [facility] Comment on above: Performed By: #### P INR, 35363-8, CMP, 97704-0, 6873-4, 27773-3, CBCA, 4548-4 #### [facility] ([id number]) [address] [place] [address] #### HA1C #### [facility] ([id number]) [address], [address] [place] [address] Hematocrit (Bld) [Volume fraction] 46.5 % Normal 39-49 [facility] Comment on above: Performed By: #### P INR, 98472-2, CMP, 49779-5, 6873-4, 47116-2, CBCA, 4548-4 #### [facility] ([id number]) [address] [place] [address] #### HA1C #### [facility] ([id number]) [address], [address] [place] [address] Hemoglobin (Bld) [Mass/Vol] 16.0 g/dL Normal 13.0-17.0 [facility] Comment on above: Performed By: #### P INR, 17124-9, CMP, 40189-3, 6873-4, 54572-6, CBCA, 4548-4 #### [facility] ([id number]) [address] [place] [address] 67425 #### HA1C #### [facility] ([id number]) [address] [facility], [address] [place] [address] Lymphocytes (Bld) [#/Vol] 1.4 10*3/uL Normal 1.0-3.5 [facility] Comment on above: Performed By: #### P INR, 95111-1, CMP, 92716-5, 6873-4, 52280-9, CBCA, 4548-4 #### [facility] ([id number]) [address] [place] [address] 58217 #### HA1C #### [facility] ([id number]) [address] [facility], [address] [place] [address] Lymphocytes/100 WBC (Bld) 31.7 % Normal [facility] Comment on above: Performed By: #### P INR, 94864-3, CMP, 49039-3, 6873-4, 76804-4, CBCA, 4548-4 #### [facility] ([id number]) [address] [place] [address] 91181 #### HA1C #### [facility] ([id number]) [address], [address] [place] [address] MCH (RBC) [Entitic mass] 29.6 pg Normal 27-34 [facility] Comment on above: Performed By: #### P INR, 28373-0, CMP, 96150-3, 6873-4, 70663-0, CBCA, 4548-4 #### [facility] ([id number]) [address] [place] [address] 27070 #### HA1C #### [facility] ([id number]) [address] [facility], [address] [place] [address] MCHC (RBC) [Mass/Vol] 34.4 g/dL Normal 32-36 [facility] Comment on above: Performed By: #### P INR, 91565-1, CMP, 99897-2, 6873-4, 19770-4, CBCA, 4548-4 #### [facility] ([id number]) [address] [place] [address] 28671 #### HA1C #### [facility] ([id number]) [address] [facility], [address] [place] [address] MCV (RBC) [Entitic vol] 86 fL Normal 80-100 [facility] Comment on above: Performed By: #### P INR, 10607-1, CMP, 46016-8, 6873-4, 86541-5, CBCA, 4548-4 #### [facility] ([id number]) [address] [place] [address] 46691 #### HA1C #### [facility] ([id number]) [address] [place] [address] [address] [place] [address] Monocytes (Bld) [#/Vol] 0.3 10*3/uL Normal 0-0.9 [facility] Comment on above: Performed By: #### P INR, 20397-2, CMP, 76958-4, 6873-4, 72296-4, CBCA, 4548-4 #### [facility] ([id number]) [address] [place] [address] 91059 #### HA1C #### [facility] ([id number]) [address], [address] [place] [address] Monocytes/100 WBC (Bld) 7.3 % Normal P [facility] Comment on above: Performed By: #### P INR, 76734-9, CMP, 83281-4, 6873-4, 55129-8, CBCA, 4548-4 #### [facility] ([id number]) [address] [place] [address] 93333 #### HA1C #### [facility] ([id number]) [address], [address] [place] [address] Neutrophils/100 WBC (Bld) 58.8 % Normal [facility] Comment on above: Performed By: #### P INR, 27541-0, CMP, 69577-8, 6873-4, 55414-1, CBCA, 4548-4 #### [facility] ([id number]) [address] [place] [address] 91600 #### HA1C #### [facility] ([id number]) [address], [address] [place] [address] Platelet mean volume (Bld) [Entitic vol] 8.0 fL Normal 7-12 [facility] Comment on above: Performed By: #### P INR, 95213-0, CMP, 29044-0, 6873-4, 65382-1, CBCA, 4548-4 #### [facility] ([id number]) [address] [place] [address] 52980 #### HA1C #### [facility] ([id number]) [address], [address] [place] [address] Platelets (Bld) [#/Vol] 219 10*3/uL Normal 150-450 [facility] Comment on above: Performed By: #### P INR, 46524-5, CMP, 81596-9, 6873-4, 12975-4, CBCA, 4548-4 #### [facility] ([id number]) [address] [place] [address] 64477 #### HA1C #### [facility] ([id number]) [address] [facility], [address] [place] [address] RBC COUNT 5.41 X10E12/L Normal 4.10-5.70 [facility] Comment on above: Performed By: #### P INR, 10614-3, CMP, 95048-1, 6873-4, 85331-9, CBCA, 4548-4 #### [facility] ([id number]) [address] [place] [address] 50557 #### HA1C #### [facility] ([id number]) [address] [facility], [address] [place] [address] WBC (Bld) [#/Vol] 4.3 10*3/uL Normal 4.0-11.0 [facility] Comment on above: Performed By: #### P INR, 28824-7, CMP, 85070-7, 6873-4, 02229-7, CBCA, 4548-4 #### [facility] ([id number]) [address] [place] [address] 23389 #### HA1C #### [facility] ([id number]) [address] [facility], [address] [place] [address] COMPREHENSIVE METABOLIC PANE [place] 10-26-2023 Albumin [Mass/Vol] 4.3 g/dL Normal 3.2-5.3 [facility] Comment on above: Performed By: #### P INR, 46116-0, CMP, 85420-2, 6873-4, 14621-4, CBCA, 4548-4 #### [facility] ([id number]) [address] [place] [address] 79972 #### HA1C #### [facility] ([id number]) [address], [address] [place] [address] ALP [Catalytic activity/Vol] 73 U/L Normal 39-130 [facility] Comment on above: Performed By: #### P INR, 23332-8, CMP, 42138-9, 6873-4, 98661-1, CBCA, 4548-4 #### [facility] ([id number]) [address] [place] [address] 92926 #### HA1C #### [facility] ([id number]) [address], [address] [place] [address] ALT [Catalytic activity/Vol] 25 U/L Normal 0-40 [facility] Comment on above: Performed By: #### P INR, 19214-9, CMP, 67512-2, 6873-4, 46893-6, CBCA, 4548-4 #### [facility] ([id number]) [address] [place] [address] 78584 #### HA1C #### [facility] ([id number]) [address], [address] [place] [address] Anion gap [Moles/Vol] 10 mmol/L Normal 5-15 [facility] Comment on above: Performed By: #### P INR, 52168-6, CMP, 43870-0, 6873-4, 44520-6, CBCA, 4548-4 #### [facility] ([id number]) [address] [place] [address] 31789 #### HA1C #### [facility] ([id number]) [address], [address] [place] [address] AST [Catalytic activity/Vol] 19 U/L Normal 0-41 [facility] Comment on above: Performed By: #### P INR, 47753-4, CMP, 25608-8, 6873-4, 71274-0, CBCA, 4548-4 #### [facility] ([id number]) [address] [place] [address] 92907 #### HA1C #### [facility] ([id number]) [address] [facility], [address] [place] [address] Bilirubin [Mass/Vol] 0.8 mg/dL Normal 0.3-1.2 [facility] Comment on above: Performed By: #### P INR, 46039-1, CMP, 29172-0, 6873-4, 03960-2, CBCA, 4548-4 #### [facility] ([id number]) [address] [place] [address] 54589 #### HA1C #### [facility] ([id number]) [address] [facility], [address] [place] [address] Calcium [Mass/Vol] 9.3 mg/dL Normal 8.5-10.5 [facility] Comment on above: Performed By: #### P INR, 32586-3, CMP, 12423-3, 6873-4, 97137-5, CBCA, 4548-4 #### [facility] ([id number]) [address] [place] [address] 83864 #### HA1C #### [facility] ([id number]) [address] [facility], [address] [place] [address] Chloride [Moles/Vol] 94 mmol/L Low 98-109 [facility] Comment on above: Performed By: #### P INR, 71553-6, CMP, 77332-7, 6873-4, 47981-2, CBCA, 4548-4 #### [facility] ([id number]) [address] [place] [address] 58925 #### HA1C #### [facility] ([id number]) [address] [facility], [address] [place] [address] CO2 [Moles/Vol] 26 mmol/L Normal 22-32 [facility] Comment on above: Performed By: #### P INR, 96409-7, CMP, 41875-6, 6873-4, 29451-0, CBCA, 4548-4 #### [facility] ([id number]) [address] [place] [address] 14312 #### HA1C #### [facility] ([id number]) [address] [facility], [address] [place] [address] Creatinine [Mass/Vol] 1.06 mg/dL Normal 0.70-1.20 [facility] Comment on above: Result Comment: METH OD TRACEABLE TO IDMS STANDARD Performed By: #### P INR, 92556-2, CMP, 92461-0, 6873-4, 38140-2, CBCA, 4548-4 #### [facility] ([id number]) [address] [place] [address] 84244 #### HA1C #### [facility] ([id number]) [address] [facility] [facility] [address] [place] [address] GFR/1.73 sq M.predicted among non-blacks MDRD (S/P/Bld) [Vol rate/Area] 75 mL/min/{1.73_m2} Normal >59 [facility] Comment on above: Result Comment: Reported eGFR is based on the CKD-EPI 2020 equation that does not use a race coefficient. Performed By: #### P INR, 03257-6, CMP, 06222-9, 6873-4, 48345-5, CBCA, 4548-4 #### [facility] ([id number]) [address] [place] [address] 07967 #### HA1C #### [facility] ([id number]) [address], [address] [place] [address] Glucose [Mass/Vol] 453 mg/dL Critically high 65-99 [facility] Comment on above: Performed By: #### P INR, 44485-3, CMP, 80725-2, 6873-4, 34858-5, CBCA, 4548-4 #### [facility] ([id number]) [address] [place] [address] 82183 #### HA1C #### [facility] ([id number]) [address], [address] [place] [address] Potassium [Moles/Vol] 4.5 mmol/L Normal 3.5-5.0 [facility] Comment on above: Performed By: #### P INR, 72527-9, CMP, 57094-2, 6873-4, 92939-6, CBCA, 4548-4 #### [facility] ([id number]) [address] [place] [address] 81411 #### HA1C #### [facility] ([id number]) [address], [address] [place] [address] Protein [Mass/Vol] 7.2 g/dL Normal 6.0-8.0 [facility] Comment on above: Performed By: #### P INR, 30857-4, CMP, 36003-3, 6873-4, 11066-3, CBCA, 4548-4 #### [facility] ([id number]) [address] [place] [address] 54174 #### HA1C #### [facility] ([id number]) [address] [place] [address] Sodium [Moles/Vol] 130 mmol/L Low 134-146 [facility] Comment on above: Performed By: #### P INR, 21442-4, CMP, 42516-4, 6873-4, 85092-8, CBCA, 4548-4 #### [facility] ([id number]) [address] [place] [address] #### HA1C #### [facility] ([id number]) [address], [address] [place] [address] Urea nitrogen [Mass/Vol] 29 mg/dL High 5-27 [facility] Comment on above: Performed By: #### P INR, 55484-2, CMP, 13723-5, 6873-4, 66622-6, CBCA, 4548-4 #### [facility] ([id number]) [address] [place] [address] #### HA1C #### [facility] ([id number]) [address], [address] [place] [address] CT BRAIN WO CONTon 3 CT BRAIN WO CONT CT BRAIN WO CONT HISTORY: A 68-year-old male with the history of the left-sided facial droop, blurred vision. Acute neurological deficit. Stroke is suspected. EXAM/TECHNIQUE: Multidetector spiral CT scan of brain is obtained. Multiplanar reconstruction images are reformatted. All CT scans at this facility use dose modulation, iterative reconstruction, and/or weight based dosing when appropriate to reduce radiation dose to as low as reasonably achievable. COMPARISON: None available. FINDINGS: The ventricular system is normal in size and configuration. There is a irregular hypodensity in the right frontal deep white matter. Changes are likely to be a sequelae of the prior infarction, infection, trauma or hemorrhage. There is no evidence of intracranial hemorrhage or acute pathology. The cerebellum and brainstem are unremarkable. No mass effect, midline shift of the structures or extra-axial fluid collections are noted. The calvarium is intact. The visualized paranasal sinuses and mastoid air cells are clear. IMPRESSION: * No evidence of intracranial hemorrhage or acute pathology. * There is a irregular region of encephalomalacia in the right frontal deep white matter. This is a sequelae of the prior infarction, infection, trauma or hemorrhage. A clinical correlation is suggested. Finalized by Isiah Denney MD on 10/26/2023 6:42 PM Normal [facility] DRUG SCREEN, URINEon 023 AMPHETAMINE/METHAMP Negative Normal NEG [facility] Comment on above: Result Comment: AMPH /METH screening cut off = 1000 ng/mL Performed By: #### P INR, 59081-9, CMP, 59208-7, 6873-4, 17894-2, CBCA, 4548-4 #### [facility] ([id number]) [address] [place] [address] 32023 #### HA1C #### [facility] ([id number]) [address], [address] [place] [address] BARBITURATES Negative Normal NEG [facility] Comment on above: Result Comment: Elsie iturates screening cut off value = 200 ng/mL Performed By: #### P INR, 70302-0, CMP, 36945-0, 6873-4, 06214-0, CBCA, 4548-4 #### [facility] ([id number]) [address] [place] [address] 53811 #### HA1C #### [facility] ([id number]) [address], [address] [place] [address] BENZODIAZEPINES Negative Normal NEG [facility] Comment on above: Result Comment: James odiazepines screening cut off value = 200 ng/mL Performed By: #### P INR, 09819-3, CMP, 58766-2, 6873-4, 75102-2, CBCA, 4548-4 #### [facility] ([id number]) [address] [place] [address] 81711 #### HA1C #### [facility] ([id number]) [address] [place] [address] CANNABINOIDS Negative Normal NEG [facility] Comment on above: Result Comment: Shawn abinoids/THC screening cut off value = 50 ng/mL Performed By: #### P INR, 73159-0, CMP, 10767-3, 6873-4, 20809-7, CBCA, 4548-4 #### [facility] ([id number]) [address] [place] [address] 32419 #### HA1C #### [facility] ([id number]) [address] [facility], [address] [place] [address] COCAINE METABOLITE Negative Normal NEG [facility] Comment on above: Result Comment: Coca ine screening cut off value = 300 ng/mL Performed By: #### P INR, 05132-3, CMP, 77304-7, 6873-4, 39434-7, CBCA, 4548-4 #### [facility] ([id number]) [address] [place] [address] 41806 #### HA1C #### [facility] ([id number]) [address] [facility], [address] [place] [address] ECSTASY Negative Normal NEG [facility] Comment on above: Result Comment: Ecst asy screening cut off value = 500 ng/mL This report is intended for use in clinical monitoring or management of patients. Performed By: #### P INR, 89887-0, CMP, 30898-7, 6873-4, 54924-5, CBCA, 4548-4 #### [facility] ([id number]) [address] [place] [address] 75826 #### HA1C #### [facility] ([id number]) [address] [facility], [address] [place] [address] METHADONE Negative Normal NEG [facility] Comment on above: Result Comment: Meth adone screening cut off value = 300 ng/mL. Performed By: #### P INR, 74655-1, CMP, 26402-1, 6873-4, 88968-1, CBCA, 4548-4 #### [facility] ([id number]) [address] [place] [address] 67088 #### HA1C #### [facility] ([id number]) [address], [address] [place] [address] OPIATES Negative Normal NEG [facility] Comment on above: Result Comment: Opia yanira screening cut off value = 300 ng/mL NOTE: This test is used for the detection of codeine, hydrocodone (>1000 ng/mL), morphine and hydromorphone (>900 ng/mL) in urine. Performed By: #### P INR, 60704-8, CMP, 84125-3, 6873-4, 35243-0, CBCA, 4548-4 #### [facility] ([id number]) [address] [place] [address] 85699 #### HA1C #### [facility] ([id number]) [address] [facility], [address] [place] [address] OXYCODONE Negative Normal NEG [facility] Comment on above: Result Comment: Oxyc odone screening cut off value = 300 ng/mL NOTE: This test is used for the detection of oxycodone and oxymorphone in urine. Performed By: #### P INR, 85559-5, CMP, 40488-4, 6873-4, 52936-9, CBCA, 4548-4 #### [facility] ([id number]) [address] [place] [address] 47181 #### HA1C #### [facility] ([id number]) [address] [facility], [address] [place] [address] PHENCYCLIDINE Negative Normal NEG [facility] Comment on above: Result Comment: Phen cyclidine screening cut off value = 25 ng/mL Performed By: #### P INR, 07448-4, CMP, 36875-3, 6873-4, 07487-0, CBCA, 4548-4 #### [facility] ([id number]) [address] [place] [address] 82704 #### HA1C #### [facility] ([id number]) [address] [place] [address] Glucose Glucometer (BldC) [M ass/Vol]on 10-26-2023 Glucose [Mass/Vol] 286 mg/dL High 65-99 [facility] Glucose [Mass/Vol] 385 mg/dL High 65-99 [facility] HA1C CONFIRMATION - NO CHARG Ian 10-26-2023 HbA1c (Bld) [Mass fraction] 15.3 % High <=5.6 [facility] Comment on above: Result Comment: NOTE INTERPRETIVE INFORMATION: Hemoglobin A1c HbA1c values of 5.7-6.4 percent indicate an increased risk for developing diabetes mellitus. HbA1c values greater than or equal to 6.5 percent are diagnostic of diabetes mellitus. For diagnosis of diabetes in individuals without unequivocal hyperglycemia, results should be confirmed by repeat testing. Performed By: #### P INR, 00823-7, CMP, 19725-4, 6873-4, 76573-3, CBCA, 4548-4 #### [facility] ([id number]) [address] [place] [address] 64076 #### HA1C #### [facility] ([id number]) [address] [place] [address] HGB A1C (GLYCO-HGB)on 2022 AVERAGE GLUCOSE >398 Normal [facility] Comment on above: Performed By: #### P INR, 78726-9, CMP, 52459-4, 6873-4, 01392-9, CBCA, 4548-4 #### [facility] ([id number]) [address] [place] [address] 69630 #### HA1C #### [facility] ([id number]) [address] [place] [address] HbA1c (Bld) [Mass fraction] % High 4.4-5.6 [facility] Comment on above: Result Comment: NOTE ADA Guidelines Result HgbA1c Normal : less than 5.7 % Prediabetes : 5.7 % to 6.4 % Diabetes : > 6.4 % Use with caution in patients with abnormal hemoglobin variants as the half-life of red blood cells and in vivo glycation rates are affected. Performed By: #### P INR, 22096-9, CMP, 54699-1, 6873-4, 78467-1, CBCA, 4548-4 #### [facility] ([id number]) [address] [place] [address] 09954 #### HA1C #### [facility] ([id number]) [address] [facility], [address] [place] [address] HbA1c (Bld) [Mass fraction]o n 10-26-2023 Glucose [Mass/Vol] 392 mg/dL Normal [facility] Comment on above: Result Comment: NOTE Performed By: [facility] [address] [place] [address] Dramatic Critic: Aramis Taylor MD, PhD CLIA Number: [id number] Performed By: #### P INR, 43618-5, CMP, 42902-5, 6873-4, 77513-4, CBCA, 4548-4 #### [facility] ([id number]) [address] [place] [address] 50198 #### HA1C #### [facility] ([id number]) [address] [facility], [address] [place] [address] MAGNESIUMon 10-26-2023 Magnesium [Mass/Vol] 1.6 mg/dL Low 1.8-2.6 [facility] Comment on above: Performed By: #### P INR, 86679-0, CMP, 57945-9, 6873-4, 44125-3, CBCA, 4548-4 #### [facility] ([id number]) [address] [place] [address] 18115 #### HA1C #### [facility] ([id number]) [address] [facility], [address] [place] [address] PROTIME AND INRon 10-26-2023 INR Coag (PPP) [Relative time] 1.0 {INR} Normal 0.8-1.1 [facility] Comment on above: Performed By: #### P INR, 95225-1, CMP, 27169-4, 6873-4, 10269-0, CBCA, 4548-4 #### [facility] ([id number]) [address] [place] [address] #### HA1C #### [facility] ([id number]) [address], [address] [place] [address] PT Coag (PPP) [Time] 11.4 s Normal 9.8-13.2 [facility] Comment on above: Result Comment: NEW REFERENCE RANGE Performed By: #### P INR, 35511-8, CMP, 50391-7, 6873-4, 41579-6, CBCA, 4548-4 #### [facility] ([id number]) [address] [place] [address] #### HA1C #### [facility] ([id number]) [address], [address] [place] [address] TROPONIN Ion 10-26-2023 Troponin I.cardiac [Mass/Vol] 0.01 ng/mL Normal 0.00-0.04 [facility] Comment on above: Performed By: #### P INR, 50148-0, CMP, 26947-1, 6873-4, 11968-8, CBCA, 4548-4 #### [facility] ([id number]) [address] [place] [address] #### HA1C #### [facility] ([id number]) [address], [address] [place] [address] URN MACROSCOPIC NURon 2022 BILIRUBIN ALLYN Negative Normal NEG [facility] Comment on above: Performed By: #### P INR, 20756-0, CMP, 46876-3, 6873-4, 45777-7, CBCA, 4548-4 #### [facility] ([id number]) [address] [place] [address] #### HA1C #### [facility] ([id number]) [address] [place] [address], [address] [place] [address] BLOOD/HGB ALLYN Trace Abnormal NEG [facility] Comment on above: Performed By: #### P INR, 80187-8, CMP, 78991-0, 6873-4, 25232-1, CBCA, 4548-4 #### [facility] ([id number]) [address] [place] [address] #### HA1C #### [facility] ([id number]) [address] [place] [address], [address] [place] [address] GLUCOSE ALLYN >=1000 Abnormal NEG [facility] Comment on above: Performed By: #### P INR, 10147-7, CMP, 20390-6, 6873-4, 21261-1, CBCA, 4548-4 #### [facility] ([id number]) [address] [place] [address] #### HA1C #### [facility] ([id number]) [address] [place] [address], [address] [place] [address] KETONES ALLYN 40 mg/dL Abnormal NEG [facility] Comment on above: Performed By: #### P INR, 76622-0, CMP, 62865-6, 6873-4, 51804-0, CBCA, 4548-4 #### [facility] ([id number]) [address] [place] [address] #### HA1C #### [facility] ([id number]) [address], [address] [place] [address] LEUKOCYTE ESTERASE ALLYN Negative Normal NEG [facility] Comment on above: Performed By: #### P INR, 09800-6, CMP, 24808-9, 6873-4, 02099-8, CBCA, 4548-4 #### [facility] ([id number]) [address] [place] [address] #### HA1C #### [facility] ([id number]) [address], [address] [place] [address] NITRITE ALLYN Negative Normal NEG [facility] Comment on above: Performed By: #### P INR, 95752-7, CMP, 87540-6, 6873-4, 79741-5, CBCA, 4548-4 #### [facility] ([id number]) [address] [place] [address] #### HA1C #### [facility] ([id number]) [address], [address] [place] [address] PH ALLYN 5.5 Normal 5.0-8.5 [facility] Comment on above: Performed By: #### P INR, 29580-1, CMP, 65059-8, 6873-4, 32893-0, CBCA, 4548-4 #### [facility] ([id number]) [address] [place] [address] #### HA1C #### [facility] ([id number]) [address], [address] [place] [address] PROTEIN ALLYN Negative Normal NEG [facility] Comment on above: Performed By: #### P INR, 91665-5, CMP, 24173-6, 6873-4, 20390-5, CBCA, 4548-4 #### [facility] ([id number]) [address] [place] [address] #### HA1C #### [facility] ([id number]) [address], [address] [place] [address] SPECIFIC GRAVITY ALYLN 1.010 Normal 1.003-1.035 [facility] Comment on above: Performed By: #### P INR, 88424-4, CMP, 12794-0, 6873-4, 01944-3, CBCA, 4548-4 #### [facility] ([id number]) [address] [place] [address] #### HA1C #### [facility] ([id number]) [address], [address] [place] [address] UROBILINOGEN ALLYN 0.2 eu/dL Normal <1.1 [facility] Comment on above: Performed By: #### P INR, 98180-4, CMP, 12849-6, 6873-4, 20213-3, CBCA, 4548-4 #### [facility] ([id number]) [address] [place] [address] #### HA1C #### [facility] ([id number]) [facility], [address] [place] [address] VENOUS BLOOD GASon 3 MICHELLE'S TEST Normal [facility] Comment on above: Performed By: #### V BG #### [facility] ([id number]) [address] [place] [address] Base excess Calc (Bld) [Moles/Vol] 0.0 mmol/L Normal 0.0-2.0 [facility] Comment on above: Performed By: #### V BG #### [facility] ([id number]) [address] [place] [address] [place] [address] Body temperature 98.6 [degF] Normal 37.[address] [facility] Comment on above: Performed By: #### V BG #### [facility] ([id number]) [address] [place] [address] HCO3 (Bld) [Moles/Vol] 25.3 mmol/L High 20.0-24.0 [facility] Comment on above: Performed By: #### V BG #### [facility] ([id number]) [address] [place] [address] Oxygen saturation in Blood 73.0 % Low >80.0 [facility] Comment on above: Performed By: #### V BG #### [facility] ([id number]) [address] [place] [address] [place] [address] OXYGEN SOURCE [employer] Normal [facility] Comment on above: Performed By: #### V BG #### [facility] ([id number]) [address] [place] [address] PCO2, VENOUS 41.3 MMHG Normal 35-50 [facility] Comment on above: Performed By: #### V BG #### [facility] ([id number]) [address] [place] [address] PH, VENOUS 7.396 Normal 7.320-7.420 [facility] Comment on above: Performed By: #### V BG #### [facility] ([id number]) [address] [place] [address] PO2, VENOUS 39 MMHG Normal 30-50 [facility] Comment on above: Performed By: #### V BG #### [facility] ([id number]) [address] [place] [address] SAMPLE SITE N/A Normal [facility] Comment on above: Performed By: #### V BG #### [facility] ([id number]) [address] [place] [address] SAMPLE TYPE VENOUS Normal [facility] Comment on above: Performed By: #### V BG #### [facility] ([id number]) [address] [place] [address] XR CHEST 1 VWon 10-26-2023 XR CHEST 1 VW XR CHEST 1 VW Chest radiograph dated: 10/26/2023. Reason for study: blurred vision. Comparison studies: Chest radiograph from 05/02/[address] abdomen pelvis from 05/02/2016. Technique: Portable upright chest 1 view AP. Findings: Unremarkable cardiomediastinal silhouette. There is no pulmonary edema. Left costophrenic is incompletely visualized however within these limits there is no significant pleural effusion. No pneumothorax or focal consolidation. Similar prominent pericardial fat on the left. IMPRESSION: No acute cardiopulmonary process Finalized by Angela Keyes MD on 10/26/2023 6:36 PM Normal [facility] aPTT Coag (PPP) [Time]on aPTT Coag (Bld) [Time] 34 s Normal 26-[address] [facility] Comment on above: Result Comment: NEW REFERENCE RANGE Performed By: #### P INR, 73047-2, CMP, 69382-2, 6873-4, 19147-7, CBCA, 4548-4 #### [facility] ([id number]) [address] [place] [address] #### HA1C #### [facility] ([id number]) [address], [address] [place] [address] Vital Signs Date Time Vital Sign Value Performing Clinician Facility 03-26-2024 10:56-0400 Body height 180.34 cm [facility] 03-26-2024 10:56-0400 Body mass index (BMI) [Ratio] 34.9 kg/m2 [facility] 03-26-2024 10:56-0400 Body weight 113.62 kg [facility] 03-26-2024 10:56-0400 Diastolic blood pressure 81 mm[Hg] [facility] 03-26-2024 10:56-0400 Heart rate 86 /min [facility] 03-26-2024 10:56-0400 Respiratory rate 20 /min [facility] 03-26-2024 10:56-0400 Systolic blood pressure 157 mm[Hg] [facility] 01-23-2024 10:33-0400 Body height 180.34 cm [facility] 01-23-2024 10:33-0400 Body mass index (BMI) [Ratio] 36.1 kg/m2 [facility] 01-23-2024 10:33-0400 Body weight 117.65 kg [facility] 01-23-2024 10:33-0400 Diastolic blood pressure 69 mm[Hg] [facility] 01-23-2024 10:33-0400 Heart rate 71 /min [facility] 01-23-2024 10:33-0400 Respiratory rate 20 /min [facility] 01-23-2024 10:33-0400 Systolic blood pressure 159 mm[Hg] [facility] 12-30-2023 10:35-0500 Body height 177.8 cm Malorie Yeboah MD Work Phone: [facility] 12-30-2023 10:35-0500 Body mass index (BMI) [Ratio] 35.01 kg/m2 Malorie Yeboah MD Work Phone: [facility] 12-30-2023 10:35-0500 Body weight 110.68 kg Malorie Yeboah MD Work Phone: [facility] 12-11-2023 11:41-0500 Body height 177.8 cm Alexis Rojas MD Work Phone: [facility] 12-11-2023 11:41-0500 Body mass index (BMI) [Ratio] 35.01 kg/m2 Alexis Rojas MD Work Phone: [employer] 12-11-2023 11:41-0500 Body weight 110.68 kg Alexis Rojas MD [facility] Phone: [facility] 12-11-2023 11:41-0500 Diastolic blood pressure 73 mm[Hg] Alexis Rojas MD Work Phone: [facility] 12-11-2023 11:41-0500 Heart rate 90 /min Alexis Rojas MD Work Phone: [facility] 12-11-2023 11:41-0500 Systolic blood pressure 126 mm[Hg] Alexis Rojas MD Work Phone: [facility] [employer] 11-26-2023 10:45-0500 Body height 180.34 cm Vinnie Ball Other [facility] 11-26-2023 10:45-0500 Body mass index (BMI) [Ratio] 35.31 kg/m2 Vinnie Ball Other [facility] [employer] Other 11-26-2023 10:45-0500 Body weight 114.85 kg Vinnie Ball Other [facility] [employer] Other 11-26-2023 10:45-0500 Body weight 114.84 kg [facility] 11-26-2023 10:45-0500 Diastolic blood pressure 80 mm[Hg] Vinnie Ball Other [facility] 11-26-2023 10:45-0500 Respiratory rate 16 /min Vinnie Ball Other [facility] [employer] Other 11-26-2023 10:45-0500 Systolic blood pressure 132 mm[Hg] Vinnie Ball Other [facility] Encounters Encounter Date Encounter Type Care Provider Facility Start: 03-29-2024 ambulatory [facility] Start: 03-26-2024 End: 03-26-2024 ambulatory [facility] Work Phone: Start: 03-26-2024 End: 03-26-2024 Patient encounter procedure [facility] Work Phone: Start: 02-13-2024 End: 03-27-2024 ambulatory MALORIE John [facility] Start: 02-12-2024 End: 02-12-2024 ambulatory MARSHALL [facility] Start: 02-04-2024 End: 02-04-2024 ambulatory JASON RODRIGUEZ Not Available Start: 01-23-2024 End: 01-23-2024 ambulatory [facility] Work Phone: Start: 01-23-2024 End: 01-23-2024 Patient encounter procedure [facility] Work Phone: Start: 12-30-2023 End: 12-30-2023 ambulatory MARSHALL [facility] Start: 12-30-2023 End: 12-30-2023 Office outpatient new 30 minutes Malorie Yeboah MD Work Phone: [facility] Comment on above: Arthritis of right k nee (Primary Dx); Right knee pain, unspecified chronicity Start: 12-11-2023 End: 12-11-2023 ambulatory [facility] Start: 12-11-2023 End: 12-11-2023 Office outpatient visit 25 minutes Alexis Rojas MD Work Phone: [facility] Comment on above: Sequelae, post-strok e (Primary Dx); Cerebrovascular accident (CVA) due to thrombosis of precerebral artery ([facility]); Type 2 diabetes mellitus with hyperglycemia, with long-term current use of insulin ([facility]); Transient alteration of awareness; Mixed hyperlipidemia; Blurred vision; Gait instability Start: 12-01-2023 End: 12-01-2023 ambulatory Vinnie Garza Other [employer] Other Start: 12-01-2023 Telephone encounter Vinnie Garza LAKEISHA G [facility] Start: 11-26-2023 End: 11-26-2023 ambulatory Vinnie Greg Other [facility] Other Start: 11-26-2023 Office outpatient vi sit 25 minutes Vinnie Greg [facility] Start: 11-26-2023 Telephone encounter Vinnie SUAZO G [facility] Start: 11-26-2023 End: 11-26-2023 Patient encounter procedure [facility]- Start: 11-17-2023 Telephone encounter Alysha Gilbert RN [facility] Start: 11-05-2023 End: 11-05-2023 ambulatory VINNIE Santos GARZA [facility] Start: 10-31-2023 Orders Only [facility] Comment on above: Cerebrovascular acci dent (CVA) due to thrombosis of precerebral artery (CMS-HCC) (Primary Dx); Other cerebrovascular vasospasm and vasoconstriction Start: 10-28-2023 End: 10-30-2023 ambulatory [facility] Start: 10-28-2023 End: 10-30-2023 ambulatory [facility] Start: 10-28-2023 End: 10-30-2023 ambulatory HAMMAD Ocasio [facility] Start: 10-26-2023 End: 10-30-2023 Emergency department patient visit [facility] Start: 10-26-2023 End: 10-29-2023 Evaluation and management of inpatient [facility] Start: 05-09-[address] VINNIE Mcgraw ty:H1 Start: 11-27-[address] VINNIE Mcgraw ty:H1 Procedures Date Procedure Procedure Detail Performing Clinician Start: 02-12-2024 Follow-up visit Follow-up MALORIE YEBOAH Start: 12-11-2023 Adult depression scr eening assessment Alexis Rojas MD Work Phone: Start: 05-02-2016 Microalbumin [Mass/v olume] in Urine by Test strip Alysha Gilbert RN Plan of Treatment Date Care Activity Detail Author Start: 12-29-2024 Adult BMI Screening Adult BMI Screen ing [facility] Start: 12-29-2024 Tobacco Screening Tobacco Screening [facility] Start: 12-11-2024 Adult BMI Screening Adult BMI Screen ing [facility] Start: 12-11-2024 Depression Screening Depression Scre ening [facility] Start: 12-11-2024 Tobacco Screening Tobacco Screening [facility] Start: 10-29-2024 Adult BMI Screening Adult BMI Screen ing [facility] Start: 10-26-2024 Tobacco Screening Tobacco Screening [facility] Start: 03-11-2024 End: 03-11-2024 Patient encounter procedure 03/11/2024 3:30 PM EDT Office Visit [facility] [address] [place] [phone] Alexis Rojas MD [address] [place] [address], [address] [phone] [facility] Start: 12-11-2023 End: 12-11-2023 Patient encounter procedure 12/11/2023 11:30 AM EST Office Visit [facility] [address] [place] [phone] Alexis Rojas MD [address] [place] [address], [address] [phone] [facility] Start: 12-04-2023 End: 12-04-2023 Patient encounter procedure 12/04/2023 9:00 AM EST Office Visit [facility] [address] [place] [phone] Neo Easton MD [address] [place] [address] [facility] Start: 10-31-2023 End: 10-31-2024 Event Monitor (In Office) MELANY DRAKE Work Phone: Comment on above: Expected: 10/31/2023 , Expires: 10/31/2024 Start: 06-27-2023 Influenza vaccination Influenza Vacc ine [facility] Start: 2018 Fall Risk Screening Fall Risk Screen ing [facility] Start: 05-02-2017 Urine screening for protein Urine Microalbumin [facility] Start: 2003 Administration of varicella zoster vaccine Zoster (Shingles) Vaccine (1 of 2) [facility] Start: 1972 DTaP,Tdap and Td Vaccines (1 - Tdap) DTaP,Tdap and Td Vaccines (1 - Tdap) [facility] Start: 1971 Adult BMI Follow Up Plan Adult BMI Follow Up Plan [facility] Start: 1971 Diabetic foot examination Diabetic Foot Exam [facility] Start: 1965 Depression Screening Depression Scre ening [facility] [employer] Start: 1953 Glaucoma screening Diabetic Op hthalmology Exam [facility] Start: 1953 Medicare Annual Well ness Visit Medicare Annual Wellness Visit [facility] Start: 1953 Tobacco Counseling Tobacco Counselin g [facility] End: 12-29-2024 Large Joint Injection/Arthrocentesis - PA Large Joint Injection/Arthrocentesi s - PA Procedures Routine Right knee pain, unspecified chronicity Arthritis of right knee 1 Occurrences starting 12/30/2023 until 12/29/2024 [facility] Work Phone: Comment on above: 1 Occurrences starti ng 12/30/2023 until 12/29/2024 End: 12-29-2024 Nicotine screen, urine Nicotine screen, urine Lab Routine Arthritis of right knee 1 Occurrences starting 12/30/2023 until 12/29/2024 [facility] [employer] Comment on above: 1 Occurrences starti ng 12/30/2023 until 12/29/2024 [facility] Immunizations Immunization Date Immunization Notes Care Provider Fortino rouse 07-08-2018 influenza virus vaccine, split virus (incl. purified surface antigen) Vinnie Garza Other [employer] Other 07-08-2018 influenza virus vaccine, unspecified formulation [facility] Payers Date Payer Category Payer Medicare [employer] MEDICARE A ETNA MEDICARE PLAN (PPO) [id number] 2021-Present [phone] [address] [place] [address] [id number] 2021 Medicare [id number] 1961 Self-pay 1955 Unknown [id number] 2.16.840.1.232712.3.579.2.593 1953 Unknown [id number] 2.16.840.1.673463.3.579.2.593 1953 Unknown [id number] 2.16.840.1.493010.3.579.2.1286 1953 Unknown [id number] 2.16.840.1.063438.3.579.2.1259 1953 Unknown [id number] 2.16.840.1.889785.3.579.2.1286 1953 Unknown [id number] 2.16.840.1.114634.3.579.2.1286 1953 Unknown [id number] 2.16.840.1.167564.3.579.2.1286 1953 Unknown [id number] 2.16.840.1.266419.3.579.2.1286 1953 Unknown [id number] 2.16.840.1.081291.3.579.2.1286 1953 Unknown [id number] 2.16.840.1.700379.3.579.2.1286 1953 Unknown [id number] 2.16.840.1.292980.3.579.2.1286 1953 Unknown [id number] 2.16.840.1.118850.3.579.2.1286 1953 Unknown [id number] 2.16.840.1.537506.3.579.2.1286 1953 Unknown [id number] 2.16.840.1.095109.3.579.2.1286 1953 Unknown [id number] 2.16.840.1.662123.3.579.2.1286 1953 Unknown [id number] 2.16.840.1.338279.3.579.2.1286 1953 Unknown [id number] 2.16.840.1.597660.3.579.2.1286 1953 Unknown [id number] 2.16.840.1.512361.3.579.2.1286 Medicare [id number] 2.16.840.1.005665.19 Unknown [id number] 2..840.1.776748.19 Social History Date Type Detail Facility [facility]: [facility] History of tobacco use Cigarette Smoker [facility] Start: 10-26-2023 Tobacco use and exposure Smoke less tobacco non-user [facility] Start: 10-26-2023 End: 12-30-2023 Alcohol intake Ex-drinker (finding) [facility] Start: 12-07-2020 End: 10-26-2023 History of Social function [facility] Start: 12-07-2020 End: 10-26-2023 Tobacco use panel [facility] Housing Instability Unknown [facility] Start: 1955 Sex Assigned At Not on file [facility] Start: 1955 Sex Assigned At Male F [facility] Goals Date Patient Goal Desired Activity /State Personal health goal Comment on above: Formatting of this n ote might be different from the original. Evaluation of progress towards goal: In progress: DC to home with home health, support from dtr and new 2-wheeled walker. Clinical Notes 11-17-2023 to 12-30-2023 Malorie Yeboah MD - 12/30/2023 10:15 AM Ronaldo Rojas MD - 12/11/2023 11:30 AM EST Note Date & Type Note Facility 12-30-2023 History of Present illness Narrative Images from the original note were not included. Cesar Rivera 1955 [id number] Last encounter with me: Visit date not found Last encounter with group: Visit date not found 12/30/2023 Chief Complaint Patient presents with Right Knee - Pain New patient right knee pain, patient states his knee has been bothersome for some time, increasing recently. States that his balance is being affected. States he has pain getting in and out of the car, going up steps and getting up from a seated position. No prior surgery, diabetic Xr today HPI Cesar Rivera is a 68 y.o. year old male that presents today as a new patient for evaluation of right knee. Patient states pain has been present for over 10 years . Patient has a history left knee replacement in 2009 by an outside physician. Patient does use a walker due to the right knee pain. The patient localizes the pain to medial and lateral joint of the right knee. Patient does feel that the knee gives out on him occasionally when it is painful.. Patient states pain is worse with activity. Symptoms are relieved with rests. Pain is affecting quality of life and ability to perform activities of daily living. Unfortunately the patient has recently been diagnosed with diabetes and unfortunately has experienced a diabetic stroke. He does have weakness due to the stroke. Patient is currently under care for the diabetes. His A1c was around 15. They are going to recheck this soon. Patient states he has had an injection in this right knee in the past including gel lubricants. He is a smoker and has tar on finger tips. His daughter who is with him says she is concerned about his smoking. He does report hip pain and stiffness. PREVIOUS TREATMENT: injections PERTINENT PMH: tobacco use and DM Past Medical History: Diagnosis Date Arthritis Cataract Diabetes ([facility]) Diabetes mellitus type 2, controlled ([facility]) Fractures Past Surgical History: Procedure Laterality Date CATARACT EXTRACTION EYE SURGERY FRACTURE SURGERY JOINT REPLACEMENT TONSILLECTOMY Social History Tobacco Use Smoking status: Every Day Types: Cigarettes Smokeless tobacco: Never Vaping Use Vaping Use: Never used Substance Use Topics Alcohol use: Not Currently Drug use: Not Currently Allergies as of 12/30/2023 (No Known Allergies) Current Outpatient Medications Medication Sig Dispense Refill aspirin 81 mg Take 1 tablet (81 mg total) by mouth in the morning. 30 tablet 1 atorvastatin (LIPITOR) 40 mg tablet Take 1 tablet (40 mg total) by mouth nightly. 30 tablet 1 insulin lispro (HumaLOG) 100 unit/mL insulin pen Inject 2-10 Units under the skin 4 (four) times a day with meals and nightly. 151-200, give 2 units. 201-250, give 4 units. 251-300, give 6 units. 301-350, give 8 units. 351-400, give 10 units. 15 mL 12 insulin glargine (LANTUS, SEMGLEE) 100 unit/mL (3 mL) insulin pen Inject 15 Units under the skin in the morning and 15 Units before bedtime. (Patient not taking: Reported on 12/11/2023) 15 mL 12 meloxicam (MOBIC) 15 mg tablet Take 1 tablet (15 mg total) by mouth in the morning. 30 tablet 2 No current facility-administered medications for this visit. EXAMINATION Body mass index is 35.01 kg/m . Patient is alert and oriented. Unlabored breathing. Patient is using a walker for ambulation. Right Knee APPEARANCE: Normal, no skin defects. No prior surgical scars EFFUSION: None PALPATION: Medial and lateral joint line PROM: 5 to 110 AROM: 5-110 LIGAMENTOUS EXAM: Negative Gareth, negative posterior drawer, negative varus/valgus testing SHALINI: Negative PATELLA: Normal patellar mobility, crepitus present with ROM, neutral tracking STRENGTH: 4+/5 HF/KF/KE/DF/PF/EHL SENSATION: grossly intact to light touch in S/S/SP/DP/T distributions VASCULAR: Palpable DP pulse, foot is warm and well perfused. No distal edema or skin lesions noted Patient does not have full painless passive ROM of ipsilateral hip. Outside Notes Reviewed None Outside Imaging Reviewed None My interpretation of outside imaging None Today's Imaging X-ray knee right minimum 4 views Findings: Standing AP, Kennedy, lateral, and sunrise views of the right knee were obtained and reviewed by myself in clinic today. The patient has tricompartmental osteoarthritis mostly involving the medial compartment (s). There is 100% joint space narrowing, subchondral cysts, subchondral sclerosis, and peripheral osteophyte formation. The patient's osteoarthritis is Kellgren Izaiah Grade 4: Large osteophytes and marked joint space narrowing and severe sclerosis and definite bone end deformity. No evidence of fracture or other osseous abnormality. Impression: Severe osteoarthritis of the right knee with complete loss of medial compartment joint space and varus deformity. Relevant Labs Lab Results Component Value Date HGBA1C >15.5 (H) 10/26/2023 HGBA1C 15.3 (H) 10/26/2023 Lab Results Component Value Date HCT 46.7 10/29/2023 Lab Results Component Value Date CREATININE 0.75 11/05/2023 ASSESSMENT 1. Right knee pain, unspecified chronicity - X-ray knee right minimum 4 views; Future - Large Joint Injection/Arthrocentesis - PA; Future 2. Arthritis of right knee - Large Joint Injection/Arthrocentesis - PA; Future - meloxicam (MOBIC) 15 mg tablet; Take 1 tablet (15 mg total) by mouth in the morning. Dispense: 30 tablet; Refill: 2 - Ambulatory referral to Physical Therapy; Future - Nicotine screen, urine; Future PLAN: I examined and treated Cesar Rivera at his appointment today. I discussed the exam findings and treatment options including surgical and non surgical options. The patient does have a significant A1c. We have given him a goal of under 7.5 before we would do any knee replacement. We are going to give the patient a nicotine test that he should do in 2 weeks after complete cessation of all nicotine containing products. We would like him to stop smoking. We are going to get him into physical therapy for his right knee. We would also like to get approval for Durolane in this right knee. We sent in meloxicam to his pharmacy however we have advised him to talk to his primary care physician on whether or not he can take this. Patient was agreeable to all of this. His daughter was here as well. I, Malorie Yeboah MD, personally performed the face to face evaluation on this patient. I discussed with the patient and confirmed the accuracy and completeness of the aforementioned history prepared by the [place] practice provider, and I personally performed the clinical examination of the patient. I discussed the treatment plan with the patient. I have updated the above note prior to signing to reflect my evaluation of the patients condition and treatment plan. Other significant notes are as follows: Cesar is a very nice 68 y.o. male who presents to my clinic for right knee pain. He has severe arthritis. We need to continue with conservative management until he can be optimized for TKA. He is a heavy smoker and has extremely poorly controlled diabetes. He will need to stop smoking and have A1c less than 7.5 prior to considering surgery. We will submit for visco approval and when he comes for this visit we will get hip xrays.. Malorie Yeboah MD [facility] [address] [place] [address], [address] W: [phone] F: [phone] documented in this encounter [facility] 12-11-2023 History of Present illness Narrative Reason for visit: Post stroke care, hospital follow-up. HPI: Cesar Rivera is a 68 y.o. male right-handed, who presents for follow up of right Middle Cerebral Artery territory stroke secondary to large vessel intracranial atherosclerosis . October 2023 He has residual symptoms of gait instability, mild left lower extremity weakness and a left facial droop . He denies balance disturbance, cognitive impairment, inability to speak, involuntary movements of the extremities, loss of vision bilaterally, numbness or tingling of both feet, numbness or tingling of both hands, paralysis of extremities, seizures, slurred speech, swallowing difficulty, syncope, and tremor of extremities . Overall he feels his condition is gradually improving. Stroke risk factors include: diabetes mellitus, hyperlipidemia, hypertension, and obesity . He denies aphasia, blurred vision, confusion, difficulty swallowing, difficulty understanding, dizziness, drowsiness, dysarthria, dysphagia, expressive aphasia, global aphasia, horizontal diplopia, slurred speech, vertical diplopia, vertigo, and word finding difficulties. Summary of hospitalization October 2023: ....68-year-old male with history of diabetes and hypertension who presented to the hospital for evaluation of slurred speech, left-sided weakness, blurred vision. Patient had blurred vision and blood sugar between 407 100 for the last few days. As blood sugar improved, patient's splint vision also improved. Patient also had hallucinations for which General Neurology was consulted. MRI was obtained and showed right frontal lobe infarct, right MCA territory. Patient's daughter states that she was getting Brian messages from him that made no sense. Noncontrast CTH showed right subcortical encephalomalacia indicating previous infarct. Patient has also had increase in falls prompting hospitalization. Patient states that he is falling for the last few weeks a couple of times per week. He states that he just falls over after trying to take a step at times. LDL 143 mg/dL, hemoglobin A1c 15.5%. Transthoracic echocardiogram showed preserved ejection fraction, mild LVH, mild right ventricular dilatation, grade 1 diastolic dysfunction. Patient was started on dual antiplatelet therapy, high-dose statin therapy for secondary prevention. Patient was subsequently discharged home in a stable condition. Interval history: Unfortunately it seems the patient has not had any physical therapy for gait instability and lower extremity weakness since being discharged from the hospital. Is currently able to ambulate without any assistive devices however has been following infrequently since being discharged on the hospital. He tends to lose his balance when he is walking and stumbles on to things frequently. Reports resolution of slurred speech, denies dysphagia. Blood pressure has been fairly well controlled at home. Blood sugar readings have been much better.. Currently on aspirin and atorvastatin for secondary prevention The following portions of the patient's history were reviewed and updated as appropriate: allergies, current medications, past family history, past medical history, past social history, past surgical history, problem list, and medication reconciliation was completed including current medication and post discharge medication. Review of Systems Review of Systems Constitutional: Positive for malaise/fatigue and weight loss. Negative for chills and fever. HENT: Negative for nosebleeds. Eyes: Negative for blurred vision, double vision, photophobia, vision loss in left eye, vision loss in right eye and visual disturbance. Cardiovascular: Positive for leg swelling. Negative for irregular heartbeat, near-syncope, palpitations and syncope. Respiratory: Positive for snoring and wheezing. Negative for shortness of breath and sleep disturbances due to breathing. Hematologic/Lymphatic: Negative for bleeding problem. Does not bruise/bleed easily. Skin: Negative for poor wound healing. Musculoskeletal: Positive for arthritis, joint pain, joint swelling and stiffness. Negative for falls, muscle cramps, muscle weakness, myalgias and neck pain. Genitourinary: Positive for bladder incontinence. Neurological: Positive for disturbances in coordination, dizziness, light-headedness, loss of balance and vertigo. Negative for aphonia, difficulty with concentration, focal weakness, headaches, numbness, paresthesias, seizures, sensory change and weakness. Psychiatric/Behavioral: Negative for altered mental status, depression and memory loss. The patient has insomnia. The patient is not nervous/anxious. Past Medical History Past Medical History: Diagnosis Date Arthritis Cataract Diabetes [place] Diabetes mellitus type 2, controlled ([facility]) Fractures Past Surgical History Past Surgical History: Procedure Laterality Date CATARACT EXTRACTION EYE SURGERY FRACTURE SURGERY JOINT REPLACEMENT TONSILLECTOMY Family History The patient has a family history of Family History Problem Relation Age of Onset Cancer Mother Brain cancer Father Social History Social History Socioeconomic History Marital status: Spouse name: Not on file Number of children: Not on file Years of education: Not on file Highest education level: Not on file Occupational History Not on file Tobacco Use Smoking status: Every Day Types: Cigarettes Smokeless tobacco: Never Vaping Use Vaping Use: Never used Substance and Sexual Activity Alcohol use: Not Currently Drug use: Not Currently Sexual activity: Defer Other Topics Concern Not on file Social History Narrative Not on file Social Determinants of Health Financial Resource Strain: Not on file Food Insecurity: No Food Insecurity (10/26/2023) Hunger Screening Food Insecurity - Worry: Never True Food Insecurity - Inability: Never True Transportation Needs: Not on file Physical Activity: Not on file Stress: Not on file Social Connections: Not on file Interpersonal Safety: Not on file Housing Instability: Not on file Current Medications: Current Outpatient Medications: aspirin 81 mg, Take 1 tablet (81 mg total) by mouth in the morning., Disp: 30 tablet, Rfl: 1 atorvastatin (LIPITOR) 40 mg tablet, Take 1 tablet (40 mg total) by mouth nightly., Disp: 30 tablet, Rfl: 1 insulin lispro (HumaLOG) 100 unit/mL insulin pen, Inject 2-10 Units under the skin 4 (four) times a day with meals and nightly. 151-200, give 2 units. 201-250, give 4 units. 251-300, give 6 units. 301-350, give 8 units. 351-400, give 10 units., Disp: 15 mL, Rfl: 12 insulin glargine (LANTUS, SEMGLEE) 100 unit/mL (3 mL) insulin pen, Inject 15 Units under the skin in the morning and 15 Units before bedtime. (Patient not taking: Reported on 12/11/2023), Disp: 15 mL, Rfl: 12 Allergies: No Known Allergies Last Neuro Imaging: Refer to HPI Objective: BP 126/73 (BP Site: Left Arm, BP Postition: Sitting, BP CUFF SIZE: M (9-13 inches)) Pulse 90 Ht 177.8 cm (5' 10 ) Wt 110.7 kg (244 lb) BMI 35.01 kg/m Physical Exam: NIH Stroke Scale 1a Level of consciousness: 0=alert; keenly responsive 1b. LOC questions: 0=Performs both tasks correctly 1c. LOC commands: 0=Performs both tasks correctly 2. Best Gaze: 0=normal 3. Visual: 0=No visual loss 4. Facial Palsy: 1=Minor paralysis (flattened nasolabial fold, asymmetric on smiling) 5a. Motor left arm: 0=No drift, limb holds 90 (or 45) degrees for full 10 seconds 5b. Motor right arm: 0=No drift, limb holds 90 (or 45) degrees for full 10 seconds 6a. motor left le=No drift, limb holds 90 (or 45) degrees for full 10 seconds 6b Motor right le=No drift, limb holds 90 (or 45) degrees for full 10 seconds 7. Limb Ataxia: 0=Absent 8. Sensory: 0=Normal; no sensory loss 9. Best Language: 0=No aphasia, normal 10. Dysarthria: 0=Normal 11. Extinction and Inattention: 0=No abnormality 12. Distal motor function: 0=Normal Total: 1 General Appearance: Healthy, alert, active, cooperative, and in no distress Head: Normocephalic, without obvious abnormality, atraumatic Eyes: conjunctivae/corneas clear. PERRL, EOM's intact. Fundi benign. ENT: ENT exam normal, no neck nodes or sinus tenderness Neck: no adenopathy, no carotid bruit, no JVD, supple, symmetrical, trachea midline, and thyroid not enlarged, symmetric, no tenderness/mass/nodules Lungs: clear to auscultation bilaterally Heart: regular rate and rhythm, S1, S2 normal, no murmur, click, rub or gallop Abdomen: soft, non-tender; bowel sounds normal; no masses, no organomegaly Extremities: extremities normal, atraumatic, no cyanosis or edema Skin: Skin color, texture, turgor normal. No rashes or lesions Neurologic: Grossly normal NIHSS1 MRS:1 PHQ9: nd Risk Factor Management: Blood pressure goal less than 130/80 LDL less than 70 mg/dL Hemoglobin A1c less than 6.5% Assessment: .n Patient Active Problem List Diagnosis AMS (altered mental status) Blurred vision Type 2 diabetes mellitus with hyperglycemia, with long-term current use of insulin ([facility]) Cerebrovascular accident (CVA) due to thrombosis ([facility]) Mixed hyperlipidemia Sequelae, post-stroke Gait instability Status post, right hemispheric ischemic infarction secondary to right Middle Cerebral Artery/M1 stenosis,, large vessel intracranial atherosclerotic disease. Poorly controlled diabetes mellitus type 2, hyperlipidemia. Hemoglobin A1c 15.5%, LDL 143 mg/dL. Was on dual antiplatelet therapy for 21 days. Currently on high-dose statin therapy for secondary prevention Plan: Continue aspirin and atorvastatin for secondary prevention Physical therapy for gait and balance training. Medications: aspirin 81 mg orally every day. Call 911 if symptoms of TIA/Stroke occur. Follow up with me in 3 months. documented in this encounter [facility] Evaluation note Encounter Date Diagnosis Assessment Notes Nov, Type 2 diabetes mellitus with hyperglycemia (ICD-10 - E11.65) [facility] Other 01-31-2024 Evaluation note* Encounter Date Diagnosis Assessment Notes Treatment Notes Treatment Clinical Notes Oct, Type 2 diabetes mellitus with hyperglycemia (ICD-10 - E11.65) [facility] Other 01-31-2024 Evaluation note* Encounter Date Diagnosis Assessment Notes Treatment Notes Treatment Clinical Notes Oct, Primary hypertension (ICD-10 - I10) This patient is instructed to consume a healthy, low-fat, low-salt diet. They are also encouraged to continue exercise to achieve/maintain a normal BMI. Patient is instructed on home BP measurements: - rest for 5 minutes w/o talking.- positioned w/ feet on floor and arm supported.- average best 2/3 readings w/ goal < 135/85.- update office w/ home readings in 2 weeks. Oct, Type 2 diabetes lora itus with hyperglycemia (ICD-10 - E11.65) This patient is following a comprehensive diabetic treatment plan. They are checking their feet daily for calluses and nonhealing ulcers. They are being seen for yearly dilated eye examinations. Goals: SBP less than 130, LDL less than 100, FBS less than 140, A1C less than 7%. They are checking their BS daily, will which are reviewed at the office visit. Continue regular routine monitoring of A1C, Microalbumin, Dilated eye exam and Foot exam Send order for diabetic education. Send Rx for insulin and CGM Oct, Cigarette nicotine dependence without complication (ICD-10 - F17.210) Instructed on smoking cessation - he does not wish to stop This patient has been encouraged to quit tobacco use immediately. They are aware of the hazards associated with tobacco use, including but not limited to respiratory infections, vascular disease and cancers. Oct, Cerebral atheroscler osis (ICD-10 - I67.2) Recent cerebral infarction. DAPT x 21 days after which Plavix was stopped and he continues ASA. f/u Neurology Continue PT/OT No driving, encouraged to use walker Fall precautions Continue secondary prevention measures Oct, Hypercholesterolemia (ICD-10 - E78.00) Instructed on diet and exercise with continued statin therapy.Discussed the beneficial effects of lowering cholesterol in reducing the risk for cerebrovascular and cardiovascular disease. 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 We contacted the patient regularly, but they failed to return our calls or activate on their own. We apologize for any inconvenience, if you have questions or concerns please contact us at . Thank you and have a wonderful day. Sincerely, Your Patient Services Outbound Team [facility] Tele[facility] encounter Note* Telephone Encounter - Alysha Gilbert RN - 11/17/2023 10:06 AM EST From Troy Moeller, This message is in reference to the below patient: Patient Name: CESAR RIVERA Date of : 1955 This is to notify Dr KONG GALLEGOS that the enrollment for the aforementioned patient has beencancelled due to no contact. We contacted the patient regularly, but they failed to return our calls or activate on their own. We apologize for any inconvenience, if you have questions or concerns please contact us at . Thank you and have a wonderful day. Sincerely, Your Patient Services Outbound Team [facility]* Diagnosis Cerebrovascular accident (CVA) due to thrombosis of precerebral artery ([facility])- Primary Other cerebrovascular vasospasm and vasoconstriction documented in this encounter [facility]* Diagnosis Sequelae, post-stroke- Primary Cerebrovascular accident (CVA) due to thrombosis of precerebral artery ([facility]) Type 2 diabetes mellitus with hyperglycemia, with long-term current use of insulin ([facility] Transient alteration of awareness Mixed hyperlipidemia Blurred vision Other specified visual disturbances Gait instability Abnormality of gait documented in this encounter [facility] note* Diagnosis Arthritis of right knee- Primary Right knee pain, unspecified chronicity Right knee pain, unspecified chronicity [facility] Diagnosis Onset Date Resolution Status Cerebral atherosclerosis acu te Cigarette nicotine dependence without complication acute Hypercholesterolemia acute Primary hypertension acute Type 2 diabetes mellitus with hyperglycemia acute [facility] Work Phone: Evaluation note* Diagnosis Onset Date Resolution Status Cerebral atherosclerosis acu te Cigarette nicotine dependence without complication acute Hypercholesterolemia acute Primary hypertension acute Primary osteoarthritis of right knee acute Type 2 diabetes mellitus with hyperglycemia acute Cerebral atherosclerosis acu te Cigarette nicotine dependence without complication acute Hypercholesterolemia acute Primary hypertension acute Type 2 diabetes mellitus with hyperglycemia acute [facility] Work Phone: History general Narrative - Reported* Type Description Date Medical History Cerebral atherosclerosis Medical History Hypercholesterolemia Medical History Primary hypertension Medical History Cigarette nicotine dependence wi thout complication Surgical History Tonsillectomy Surgical History Right Shoulder Surgery Surgical History Left TKA 2010 Surgical History Right Knee Arthroscopy x2 Surgical History 2: cataracts Surgical History ORIF Right Wrist Hospitalization History see surgical history [facility] Other InstructionsNot on filedocumented in this encounter [facility] System[facility]ructionsNot on filedocumented in this encounter [facility] SystemInstructionsNot on filedocumented in this encounter [facility] SystemReason for visit NarrativeDiabetic education/XR results [facility] Other Summary Purpose Family History No Family History Records Found Relationship Condition Age at Onset Recorded Date/T dinorah Not Specified Malignant neoplasm Unknown History of stroke Unknown Advance Directives No Advanced Directives Records FoundLatest Code Status on File Code Status Date Activated Date Inactivated Comments Full Code 10/28/2023 8:46 AM 10/29/2023 3:57 PM Latest Code Status on File Code Status Date Activated Date Inactivated Comments Full Code 10/28/2023 8:46 AM 10/29/2023 3:57 PM Advance Directive Response Recorded Date/ Time Advance Directives No November 26, 2023 12:50pm Reason for Referral Specialty Diagnoses / Procedures Referred By Shanice t Referred To Contact Diagnoses Cerebrovascular accident (CVA) due to thrombosis of precerebral artery (CMS-HCC) Other cerebrovascular vasospasm and vasoconstriction Procedures Event Monitor (In Office) Kong Gallegos APRN-YUKI [address] [facility] [address] [place] [id number] Referral ID Status Reason Start Date Expiration Date V isits Requested Visits Authorized [id number] Pending Review 10/31/2023 10/30/2024 1 1 Specialty Diagnoses / Procedures Referred By Contac t Referred To Contact Rehabilitation Diagnoses Cerebrovascular accident (CVA) due to thrombosis of precerebral artery (CMS-HCC) Sequelae, post-stroke Gait instability Alexis Rojas MD [address] [place] [address], [address] [place] [address] Referral ID Status Reason Start Date Expiration Date Visits Requested Visits Authorized [id number] Pending Review Specialty Services Required 12/11/2023 12/10/2024 1 1 Specialty Diagnoses / Procedures Referred By Contac t Referred To Contact Rehabilitation Diagnoses Arthritis of right knee Malorie Yeboah MD [address] [place] [address] Referral ID Status Reason Start Date Expiration Date Visits Requested Visits Authorized [id number] Pending Review Specialty Services Required 12/30/2023 12/29/2024 1 1 Specialty Diagnoses / Procedures Referred By Contac t Referred To Contact Diagnoses Right knee pain, unspecified chronicity Arthritis of right knee Procedures Large Joint Injection/Arthrocentesis - Malorie Lou MD [address] [place] [address] [facility] [id number] [place] [address] Referral ID Status Reason Start Date Expiration Date V isits Requested Visits Authorized [id number] Pending Review 12/30/2023 12/29/2024 1 1 Chief Complaint and Reason for Visit Chief Complaint Follow Up 2 month follow up Reason for Visit Cerebral atheroscler osis Cigarette nicotine dependence without complication Hypercholesterolemia Primary hypertension Type 2 diabetes mellitus with hyperglycemia Chief Complaint 2 month follow up fell, leg pain Reason for Visit Cerebral atheroscler osis Cigarette nicotine dependence without complication Hypercholesterolemia Primary hypertension Primary osteoarthritis of right knee Type 2 diabetes mellitus with hyperglycemia Cerebral atherosclerosis Cigarette nicotine dependence without complication Hypercholesterolemia Primary hypertension Type 2 diabetes mellitus with hyperglycemia Additional Source Comments (unrecognized sect ion and content) No Status Records FoundNo Status Records FoundNo Status Records FoundNo Status Records FoundNo Status Records Found INFORMATION SOURCE (unrecogn ized section and content) DATE CREATED AUTHOR 05/16/2022 [facility] DATE CREATED AUTHOR AUTHOR'S ORGANIZ ATION 11/02/2023 [facility] DATE CREATED AUTHOR AUTHOR'S ORGANIZ ATION 02/05/2024 [facility] DATE CREATED AUTHOR AUTHOR'S ORGANIZ ATION 02/13/2024 [facility] DATE CREATED AUTHOR AUTHOR'S ORGANIZ ATION 03/29/2024 [facility] Care Teams (unrecognized sec tion and content) 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 Specialty [place] [address] [place] [address] PCP - General Internal Medicine 10/26/23 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 Specialty Start Date End Date Vinnie Garza DO [address] [place], [place] [id number] PCP - General Internal Medicine 10/26/23 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 Specialty Start Date End Date Vinnie Garza DO [address] [place] [id number] PCP - General Internal Medicine 10/26/23 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 Specialty Start Date End Date Vinnie Garza DO [address] [place] [address] PCP - General Internal Medicine 10/26/23 Team Status: Active Member Role Status Dates Vinnie Garza DO Primary Care Provider Active Team Status: Inactive Member Role Status Dates Vinnie Garza DO Attending Provider Active Sta rt: November 26, 2023 End: November 26, 2023 Team Status: Inactive Member Role Status Dates Vinnie Garza DO Primary Care Provide r, Attending Provider Active Start: January 23, 2024 End: January 23, 2024 Team Status: Inactive Member Role Status Dates Vinnie Ball , DO Primary Care Provide r, Attending Provider Active Start: March 26, 2024 End: March 26, 2024 REASON FOR VISIT (unrecogniz ed section and content) Reason Comments Pain New patient right kn ee pain, patient states his knee has been bothersome for some time, increasing recently. States that his balance is being affected. States he has pain getting in and out of the car, going up steps and getting up from a seated position. No prior surgery, diabetic Xr today Goals (unrecognized section and content) Goals may be documented in a n alternate section FOR RECORDS PERTAINING TO PATIENTS WHO ARE OR HAVE BEEN ENROLLED IN A CHEMICAL DEPENDENCY/SUBSTANCEABUSE PROGRAM, SOME INFORMATION MAY BE OMITTED. This clinical summary was aggregated from multiple sources. Caution should be exercised in using it in the provision of clinical care. This summary normalizes information from multiple sources, and as a consequence, information in this document may materially change the coding, format and clinical context of patient data. In addition, data may be omitted in some cases. CLINICAL DECISIONS SHOULD BE BASED ON THE PRIMARY CLINICAL RECORDS. [employer] provides no warranty or guarantee of the accuracy or completeness of information in this document.
--- NOTE | 2024-03-31 11:13 | US_ITS ---
The [address] [address] Patient Name: VASHTI MASSEY MRN: [id number] date: 1955 Sex: M Assigned Patient Location: ER Current Patient Location: ER Accession/Order Number: [id number] Exam Date: 03/31/2024 12:00 Report Date: 03/31/2024 12:34 At the request of: AKIL VERA Procedure: US venous doppler LE LT EXAMINATION: US venous doppler LE LT HISTORY: swelling [left leg COMPARISON: No relevant comparison available. FINDINGS: REGION: Left lower extremity THROMBI: None. COMPRESSIBILITY: Normal compressibility. FLOW: Normal waveform and antegrade flow between 5 and 20 cm/s. OTHER: None. US/US venous doppler LE LT IMPRESSION: 1. No deep vein thrombus within the left lower extremity. 2. Mild subcutaneous edema. Electronically authenticated by: CALISTA MEAD Date: 03/31/2024 12:34
--- NOTE | 2024-03-31 11:13 | XR_ITS ---
The [address] [address] Patient Name: VASHTI MASSEY MRN: [id number] date: 1955 Sex: M Assigned Patient Location: ER Current Patient Location: ER Accession/Order Number: [id number] Exam Date: 03/31/2024 12:25 Report Date: 03/31/2024 13:02 At the request of: AKIL VERA Procedure: XR knee LT 4V PROCEDURE: XR knee LT 4V HISTORY: fall , wound over patella COMPARISON: None. FINDINGS: BONES:Prior knee replacement without evidence of hardware fracture loosening. No bone fracture dislocation. SOFT TISSUES:5.3 x 2.8 cm oval opacity within subcutaneous fat inferior to the patella as seen on the lateral view. EFFUSION:None visible. OTHER: Negative. XR/XR knee LT 4V IMPRESSION: 1. Infrapatellar subcutaneous hematoma versus abscess versus bursitis. 2. No joint effusion or acute bone abnormality. 3. Prior knee replacement without evidence of hardware failure. Electronically authenticated by: CALISTA MEAD Date: 03/31/2024 13:02
[2024-03-31] MEDS: 0.9 % SODIUM CHLORIDE 1,000 ML 1000 ML IV (11:53)
[2024-03-31 11:54] LABS: Basophils Absolute Auto 0.1 10^3/uL (0.0-0.1); Basophils Percent Auto 1.4 % (0.2-2.0); Eosinophils Absolute Auto 0.2 10^3/uL (0.0-0.7); Eosinophils Percent Auto 4.5 % (0.9-7.0); Hematocrit 39.4 % (42.0-54.0); Hemoglobin 13.5 g/dL (14.0-18.0); Lymphocytes Absolute Auto 1.8 10^3/uL (1.2-3.8); Lymphocytes Percent Auto 33.9 % (20.5-60.0); Mean Corpuscular HGB Conc 34.3 g/dL (29.9-35.2); Mean Corpuscular Hemoglobin 30.3 pg (25.9-34.0); Mean Corpuscular Volume 88.5 fL (80.0-94.0); Mean Platelet Volume 8.9 fL (9.5-13.5); Monocytes Absolute Auto 0.4 10^3/uL (0.3-0.8); Monocytes Percent Auto 8.5 % (1.7-12.0); Neutrophils Absolute Auto 2.7 10^3/uL (1.4-6.5); Neutrophils Percent Auto 51.7 % (43.0-75.0); Platelet Count 224 10^3/uL (150-450); Red Blood Count 4.45 10^6/uL (4.70-6.10); Red Cell Distribution Width 13.4 % (11.0-15.0); White Blood Count 5.2 10^3/uL (4.0-11.0)
[2024-03-31] MEDS: PIPERACILLIN SODIUM/TAZOBACTAM 4.5 GM in 0.9 % SODIUM CHLORIDE 50 ML IV (11:54)
[2024-03-31 12:14] LABS: Alanine Aminotransferase 22 U/L (16-63); Albumin Globulin Ratio 1.2; Albumin Level 3.8 g/dL (3.4-5.0); Alkaline Phosphatase 81 U/L (46-116); Anion Gap 13.2; Aspartate Amino Transferase 12 U/L (15-37); BUN Creatinine Ratio 22.8; Bilirubin Total 0.6 mg/dL (0.2-1.0); Calcium 8.9 mg/dL (8.5-10.1); Carbon Dioxide 28.8 mmol/L (21.0-32.0); Chloride 101 mmol/L (98-107); Estimated GFR (African America >60 (>=60); Estimated GFR (Non-African Ame >60 (>=60); Globulin 3.3 g/dL; Glucose 74 mg/dL (74-106); Sodium 139 mmol/L (136-145); Total Protein 7.1 g/dL (6.4-8.2)
[2024-03-31 12:18] LABS: Lactate/Lactic Acid 1.1 mmol/L (0.4-2.0)
--- NOTE | 2024-03-31 12:23 | CT_ITS ---
[address] [address] Patient Name: VASHTI MASSEY MRN: [id number] date: 1955 Sex: M Assigned Patient Location: ER Current Patient Location: ER Accession/Order Number: [id number] Exam Date: 03/31/2024 13:58 Report Date: 03/31/2024 15:17 At the request of: AKIL VERA Procedure: CT lower leg LT w con EXAMINATION: CT lower leg LT w con HISTORY: left knee infection COMPARISON: XR knee left 03/31/2024 TECHNIQUE: Multi-planar CT images were created without and/or with IV contrast according to examination type. Dose reduction techniques were achieved by using automated exposure control and/or adjustment of mA and/or kV according to patient size and/or use of iterative reconstruction technique. FINDINGS: BONES: Right knee replacement without evidence of hardware fracture loosening. No bone fracture or lesion. SOFT TISSUES: Fluid collection anterior to patellar tendon within subcutaneous fat, 6.2 x 5.2 cm x 2.3 cm in thickness. Prominent subcutaneous edema throughout the distal lower extremity. Moderate marked atherosclerotic disease. EFFUSION: None visible. OTHER: Negative. CT/CT lower leg LT w con IMPRESSION: 1. Suspect prepatellar bursitis. No appreciable air within the fluid collection to suggest abscess. Hematoma is also felt less likely. 2. Prominent subcutaneous edema throughout the lower extremity. Electronically authenticated by: CALISTA MEAD Date: 03/31/2024 15:17
[2024-03-31] MEDS: VANCOMYCIN HCL 1,500 MG in 0.9 % SODIUM CHLORIDE 500 ML 250 MG IV (12:29)
--- NOTE | 2024-03-31 16:31 | P.HP_ITS ---
<Statement entered by Shaikh Zainab MD - 04/01/24 11:29> This documentation has been reviewed and approved. Case discussed with Shayna, ED provider. Admitted for cellulitis, left knee pain/swelling. Agree with treatment plan HPI H&P: HPI History of Present Illness Chief complaint: LLE REDNESS, SWELLING/FAILED OP TREATMENT Narrative: 03/31/24 1520 This is a 68-year-old male patient with a past medical history as outlined below including DM type II, hyperlipidemia and hypertension; who presented to the ED today per his PCP due to left lower extremity cellulitis that failed outpatient treatment. The patient fell in [facility] on 03/21/2024 landing on his left knee that had a total knee arthroplasty in the past. He denies any disruption of his skin at the time of the fall but did note bruising. He subsequently developed a blister on the patella that ruptured on its own. He followed up with his PCP the following day and was placed on doxycycline which she has been taking as prescribed. He returned to his PCP office today and the entire left lower ex tremity from above the knee to the toes was swollen with redness, tenderness, and warmth to the suprapatellar and harrison areas. He presented to the ED for further evaluation. Workup in the ED revealed hypertension (174/73), and unremarkable labs without leukocytosis or lactic acidosis. A left knee x-ray revealed no evidence of loosening or dislocation of his TKA but in the infrapatellar subcu hematoma versus abscess versus bursitis was suspected. A venous Doppler was negative for DVT. A CT of the left lower extremity revealed a likely prepatellar bursitis without evidence of abscess and prominent subcu swelling. Patient is being admitted to the hospitalist service in observation for IV antibiotics due to failed outpatient treatment, and specialty orthopedic surgery consultation. At the time of my exam the patient is resting comfortably on ED cart. He denies any chest pain, shortness of breath, N/V, or fevers/chills. The patient reports that despite taking doxycycline since 03/22, his left lower extremity began to swell more in the last 2 days and redness developed on his left harrison starting yesterday. He denies significant pain to the area but does note tenderness with palpation. Opioid HPI Opioid Management Most Recent Opioid Data: Last Pain Scale 03/31/24 11:23 Review of Systems ROS Status of ROS 10 or more systems reviewed and unremark able except as noted in history and below [facility] Medical History (Updated 03/31/24 @ 16:43 by Shayna Coleman NP) DM2 (diabetes mellitus, type 2) ?E11.9 - Type 2 diabetes mellitus without complications (ICD-10) Osteoarthritis ?M19.90 - Unspecified osteoarthritis, unspecified site (ICD-10) HTN (hypertension) ?I10 - Essential (primary) hypertension (ICD-10) Hyperlipidemia ?E78.5 - Hyperlipidemia, unspecified (ICD-10) Meds Home Medications and Allergies Home Medications ?Medication ?Instructions ?Recorded ?Confirmed ?Type aspirin 81 mg tablet,delayed 81 mg PO .QD 03/31/24 03/31/24 History release atorvastatin 40 mg tablet 40 mg PO .QD 03/31/24 03/31/24 History flash glucose scanning reader 03/31/24 03/31/24 History (FreeStyle Kathie 2 [place]) flash glucose sensor (FreeStyle 03/31/24 03/31/24 History Kathie 2 Sensor kit) insulin aspart U-100 100 unit/mL 15 unit subcut TID 03/31/24 03/31/24 History (3 mL) subcutaneous pen (Novolog FlexPen U-100 Insulin aspart) insulin glargine 100 unit/mL (3 15 unit subcut .QHS 03/31/24 03/31/24 History mL) subcutaneous pen (Lantus Solostar U-100 Insulin) insulin syringe-needle U-100 1 mL 03/31/24 03/31/24 History 30 gauge x 7/16 losartan 25 mg tablet 25 mg PO .qd 03/31/24 03/31/24 History meloxicam 15 mg tablet 15 mg PO .qd 03/31/24 03/31/24 History mupirocin 2 % topical ointment 1 applic topical BID 03/31/24 03/31/24 History Allergies Allergy/AdvReac Type Severity Reaction Status Date / Time No Known Drug Allergies Allergy Verified 03/31/24 11:00 Exam Constitutional Vital Signs, click to edit/add: Last Vital Signs Temp 97.7 F 03/31/24 11:00 Pulse 88 03/31/24 12:57 Resp 16 03/31/24 12:57 BP 174/73 H 03/31/24 14:15 Pulse Ox 97 03/31/24 14:15 O2 Del Method Room Air 03/31/24 11:00 Common normals: no apparent distress, oriented x3, alert and well nourished General appearance: cooperative Orientation/consciousness: Yes awake HENOK Common normals: normocephalic, head/scalp atraumatic, hearing grossly normal bilaterally, external nose normal and moist oral mucous membranes Eye Common normals: PERRL, EOMs intact bilaterally, conjunctivae normal and no scleral icterus Alignment: alignment normal Eyelid: eyelids normal Neck & C-Spine Common normals: full ROM, supple and no JVD Chest Common normals: inspection of chest normal Chest: symmetrical chest wall rise Respiratory Common normals: normal respiratory effort, no retractions, no use of accessory muscles and clear to auscultation bilaterally Effort & inspection: able to speak in complete sentences Cardio Common normals: no JVD, regular rate, regular rhythm, S1 normal heart sound, S2 normal heart sound, no gallops, no clicks, no rub and peripheral pulses 2+ throughout Heart sounds: murmur (HSM 2/6) GI Common normals: Normal to inspection, nondistended, normoactive bowel sounds present, soft to palpation, non-tender, no hepatosplenomegaly, no masses and no bruits Bladder/kidney exam: bladder normal to palpation Back & Pelvis Common normals: thoracic and lumbar spine normal to inspection Extremity Common normals: normal capillary refill General: normal exam except as noted; no clubbing and no cyanosis Left lower extremity: knee joint (Bursitis w/ erythema/tenderness/calor. Mild fluctuance ) Left knee: other (Eschar over remaining prepatellar blistered lesion, No drng) and lower leg (Erythema/calor/tenderness to L harrison) Other: Swelling of LLE from above knee to toes, non-pitting Neuro Prashant Coma Scale: GCS not evaluated Common normals: CN's II-XII intact bilaterally, moves all extremities, no focal motor deficits and no sensory deficits noted Speech: speech normal Motor exam: strength 5/5 throughout Psych Common normals: mental status grossly normal, thought process normal, affect normal and activity/motor behavior normal Results Labs Labs: Short CBC 03/31/24 Range/Units 11:45 WBC 5.2 (4.0-11.0) 10^3/uL Hgb 13.5 L (14.0-18.0) g/dL Hct 39.4 L (42.0-54.0) % Plt Count 224 (150-450) 10^3/uL BMP 03/31/24 11:45 Sodium 139 Potassium 4.0 Chloride 101 Carbon Dioxide 28.8 BUN 18.0 Creatinine 0.79 Glucose 74 Calcium 8.9 Liver Function 03/31/24 Range/Units 11:45 Total Bilirubin 0.6 (0.2-1.0) mg/dL AST 12 L (15-37) U/L ALT 22 (16-63) U/L Alkaline Phosphatase 81 (46-116) U/L Albumin 3.8 (3.4-5.0) g/dL Pulse Oximetry Attestation: I have reviewed the pertinent pulse oximetry results. Imaging L Knee XR: Attestation: I have reviewed the pertinent imaging results. Radiologist's impression: IMPRESSION: 1. Infrapatellar subcutaneous hematoma versus abscess versus bursitis. 2. No joint effusion or acute bone abnormality. 3. Prior knee replacement without evidence of hardware failure. Venous US: Attestation: I have reviewed the pertinent imaging results. Radiologist's impression: IMPRESSION: 1. No deep vein thrombus within the left lower extremity. 2. Mild subcutaneous edema. CT L Leg: Attestation: I have reviewed the pertinent imaging results. Radiologist's impression: IMPRESSION: 1. Suspect prepatellar bursitis. No appreciable air within the fluid collection to suggest abscess. Hematoma is also felt less likely. 2. Prominent subcutaneous edema throughout the lower extremity. Assessment and Plan Assessment and Plan (1) Bursitis: Assessment and Plan: Acute * Adm observation * Failed outpatient treatment on Doxycycline x 1 week * Pt afebrile, w/ stable BP and mentation - low clinical concern for sepsis at this time * IVPB Zosyn and Vancomycin * IV Toradol 30 mg scheduled TID, PRN IV Morphine and PO Oxy for pain * PT/OT consults * Consult Orthopedic Surgery - we appreciate Dr Hsu's assistance with this pt's care * CBC, CMP daily Qualifiers: Bursitis location: knee Knee bursitis location: prepatellar bursitis Laterality: left Qualified Code(s): M70.42 - Prepatellar bursitis, left knee (2) Cellulitis: Assessment and Plan: Acute * Cellulitis of the prepatellar and harrison areas of the LLE * See ABX/plan above (3) DM2 (diabetes mellitus, type 2): Assessment and Plan: Chronic * Continue home basal Lantus and Novolog 15 un TID for CHO coverage w/ meals * ACHS glucometer checks * Med SSI for glucose correction * CC diet (4) Osteoarthritis: Assessment and Plan: Chronic * Hold home meloxicam while pt is on scheduled Toradol (5) HTN (hypertension): Assessment and Plan: Chronic * Continue home Losartan * HTN poorly controlled in the ED - possibly d/t pain * Consider adjusting home med regimen pending clinical course * PRN Hydralazine (6) Hyperlipidemia: Assessment and Plan: Chronic * Continue home statin
[2024-03-31 17:12] LABS: Glucometer 122 mg/dL (74-106)
--- OUTSIDE RECORDS SUMMARY | 2024-03-31 17:12 | XMS_ITS | CCD ---
Author Organization [facility] Care Team Providers Care Command Post Craftsman Name Role Phone GREG, DR BUSH Primary Care Unavailable BALL, DR BUSH Attending Unavailable BALL, DR BUSH Admitting Unavailable BALL, DR BUSH Primary Care Unavailable BALL, DR BUSH Attending Unavailable BALL, DR BUSH Admitting Unavailable Ball Vinnie ESTRADA Primary Care Provider KONG GALLEGOS Referring Unavailable GREG, VINNIE Graham Primary Care Unavailable Greg Vinnie Unavailable JASON RODRIGUEZ Attending Unavailable MALORIE YEBOAH Attending Unavailable VINNIE GARZA Referring Unavailable GREG, VINNIE Graham Primary Care Unavailable MALORIE YEBOAH Referring Unavailable GREG, VINNIE Graham Primary Care Unavailable MALORIE YEBOAH Attending Unavailable MALORIE YEBOAH Referring Unavailable GREG, VINNIE Graham Primary Care Unavailable TAWANNA, EHAD Attending Unavailable VINNIE GARZA Referring Unavailable GREG, VINNIE Graham Primary Care Unavailable SARAH BARRETT Attending Unavailable VINNIE GARZA Primary Care Unavailable INPATIENT, TELENEUROLOGY Consulting Unavail able ABEBE ROLLINS Admitting Unavailab MALORIE Boyd Referring Unavailable VINNIE GARZA Primary Care Unavailable SARAH BARRETT Attending Unavailable SARAH BARRETT Referring Unavailable VINNIE GARZA Primary Care Unavailable HAMMAD PATEL Attending Unavailable HAMMAD PATEL Referring Unavailable GREG, VINNIE Graham Primary Care Unavailable KONG GALLEGOS Attending Unavailable KONG GALLEGOS Referring Unavailable GREG, VINNIE Graham Primary Care Unavailable KONG GALLEGOS Attending Unavailable KONG GALLEGOS Referring Unavailable GREG, VINNIE Graham Primary Care Unavailable GREG, VINNIE Graham Referring Unavailable GREG, VINNIE Santos Primary Care Unavailable MALORIE YEBOAH Referring Unavailable GREG, VINNIE Graham Primary Care Unavailable Medications Current Medications Medication Drug Class(es) Dates Sig (Normalized) Sig (Original) aspirin 81 mg delayed release oral tablet (11 sources) Platelet Aggregation Inhibitor, Nonsteroidal Anti-inflammatory Drug Start: 01-22-2024 take 81 mg by mouth once daily Aspirin Active 81 MG PO Daily January 22, 2024 12:00am Start: 10-30-2023 take 1 tablet by piyush th in the morning aspirin 81 mg Take 1 tablet (81 mg total) by mouth in the morning. 30 tablet 1 10/30/2023 Active atorvastatin 40 mg oral tablet (11 sources) HMG-CoA Reductase Inhibitor Start: 01-22-2024 take 40 mg by mouth once daily Atorvastatin Active 40 MG PO Daily January 22, 2024 12:00am Start: 10-29-2023 take 1 tablet by piyush th once daily atorvastatin (LIPITOR) 40 mg tablet Take 1 tablet (40 mg total) by mouth nightly. 30 tablet 1 10/29/2023 Active Blood-Glucose Meter,Continuous (Freestyle Kathie 3 Narka) misc (2 sources) Start: 03-01-2024 Blood-Glucose Meter,Continuous (Freestyle Kathie 3 Narka) misc Active 0 .Route 1 March 01, 2024 12:00am to test daily Blood-Glucose Sensor (Freestyle Kathie 3 Sensor) device (2 sources) Start: 03-01-2024 Blood-Glucose Sensor (Freestyle Kathie 3 Sensor) device Active 0 .Route 2 March 01, 2024 12:00am to test blood sugar daily clopidogrel 75 mg oral tablet (6 sources) P2Y12 Platelet Inhibitor Start: 01-22-2024 take 1 tablet by mouth once daily Clopidogrel (Plavix) 75 mg tablet Active 75 MG PO Daily January 22, 2024 12:00am Start: 10-30-2023 End: 12-11-2023 take 1 tablet by mouth in the morning clopidogreL (PLAVIX) 75 mg tablet Take 1 tablet (75 mg total) by mouth in the morning. 30 tablet 1 10/30/2023 12/11/2023 Discontinued (Therapy completed) doxycycline hyclate 100 mg oral capsule (1 source) Tetracycline-class Drug Start: 03-26-2024 take 100 mg by mouth twice daily Doxycycline Hyclate Active 100 MG PO Twice daily 14 7 March 26, 2024 12:00am FreeStyle Kathie 2 Narka - (4 sources) Start: 11-26-2023 FreeStyle Kathie 2 Narka - Use to test home BS transcutaneous 4x daily for 365 days Oct, Active FreeStyle Kathie 2 Sensor - (4 sources) Start: 11-26-2023 FreeStyle Kathie 2 Sensor - Use to check home BS transcutaneous 4x daily for 30 days Oct, Active Insulin Admin Supplies - (2 sources) Start: 12-01-2023 Insulin Admin Supplies - as directed to use for insulin for 30 days Nov, Active Insulin Aspart U-100 (Novolog Flexpen U-100 Insulin) 100 unit/mL (3 mL) insulin pen (3 sources) Start: 01-22-2024 Insulin Aspart U-100 (Novolog [...] (8 sources) Insulin Analog Start: 12-01-2023 Lantus SoloStar 100 UNIT/ML 15u Subcutaneous q HS for [...] Glargine (Lantus U-100 Insulin) 100 unit/mL solution (3 sources) Start: 01-22-2024 inject 15 [IU] by [...] Active losartan potassium 25 mg oral tablet (3 sources) Angiotensin 2 Receptor Michael Start: 01-23-2024 [...] the morning. 30 tablet 2 12/30/2023 Active mupirocin 0.02 mg/mg topical ointment (1 source) RNA Synthetase Inhibitor Antibacterial Start: 03-26-2024 Mupirocin Active 1 APPLIC TOPICAL Twice daily 17 08March 26, 2024 12:00am Completed/Discontinued Medications Medication Drug Class(es) Dates Sig [...] evening meal for 90 *Pick strength-form from [employer] for eRX* 07 Jun, 2021 Not-Taking/PRN NovoLIN [...] evening meal for 30 *Pick strength-form from [employer] for eRX* 15 Jul, 2020 Not-Taking/PRN pravastatin [...] Onset: 11-05-2023 Chronic Disorders of lipid metabolism (20 sources) Mixed hyperlipidemia; 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: [Mixed hyperlipidemia] Onset: 10-28-2023 10-28-2023 Chronic Essential hypertension (13 sources) Essential hypertension; 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: [Essential (primary) hypertension] Chronic Late effects of cerebrovascular disease (4 sources) Sequela of cerebrovascular accident; 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: [Unspecified sequelae of cerebral infarction] Onset: 12-11-2023 12-11-2023 Chronic Osteoarthritis (8 sources) Arthritis of right knee; 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: [Unilateral primary osteoarthritis, right knee] Onset: 12-30-2023 12-30-2023 Chronic Other aftercare (4 sources) Long-term current use of insulin; 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: [intermodal customer service (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 insulin] Episodic Other and ill-defined cerebrovascular disease (1 source) Cerebrovascular disease; 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: [Other cerebrovascular vasospasm and vasoconstriction] 10-31-2023 Chronic Other and ill-defined cerebrovascular disease (1 source) Other cerebrovascular vasospasm and vasoconstriction; 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: [Other cerebrovascular vasospasm and vasoconstriction] Onset: 10-31-2023 Chronic Other and ill-defined cerebrovascular disease (7 sources) Cerebral atherosclerosis; 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: [Cerebral atherosclerosis] 01-22-2024 Chronic Other and ill-defined cerebrovascular disease (7 sources) Cerebral atherosclerosis; 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: [Cerebral atherosclerosis] Chronic Other circulatory disease (1 source) Personal history of transient ischemic attack (TIA), and cerebral infarction without residual deficits Episodic Other connective tissue disease (2 sources) Presence of left artificial knee joint; 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: [Knee joint replacement] 03-26-2024 Chronic Other nervous system disorders (3 sources) Abnormal gait; 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: [Unsteadiness on feet] Onset: 12-11-2023 12-11-2023 Episodic Other nervous system disorders (1 source) Unsteadiness on feet; 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: [Unsteadiness on feet] Onset: 12-11-2023 Episodic Other non-traumatic joint disorders (4 sources) Pain in right knee; 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: [Pain in joint, lower leg] Onset: 12-30-2023 12-30-2023 Episodic Residual codes; unclassified (4 sources) Altered mental status; 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: [Altered mental status, unspecified] Onset: 10-26-2023 10-28-2023 Episodic Residual codes; unclassified (1 source) Pain Onset: 12-30-2023 Episodic Substance-related disorders (13 sources) Nicotine dependence; 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: [Nicotine dependence, cigarettes, uncomplicated] Chronic Superficial injury; contusion (9 sources) Contusion of right wrist, initial encounter; [...] Onset: 12-11-2023 12-11-2023 Other aftercare (3 sources) intermodal customer service (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 insulin; 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: [intermediate (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 insulin] Onset: 10-28-2023 Episodic [...] space and varus deformity. MANUALLY TRANSCRIBED RESULTS [facility] Radiology Study observation (narrative) [facility] BASIC METABOLIC PANLon 11-05 Anion gap [Moles/Vol] 11 mmol/L Normal 5-15 [facility] Comment on above: Performed By: #### P INR, 80561-4, CMP, 20088-9, 6873-4, 21151-6, CBCA, 4548-4 #### [facility] ([id number]) [address] [place] [address] 13750 #### HA1C #### [facility] ([id number]) [address], [address] [place] [address] Calcium [Mass/Vol] 8.8 mg/dL Normal 8.5-10.5 [facility] Comment on above: Performed By: #### P INR, 52798-3, CMP, 84211-0, 6873-4, 68547-9, CBCA, 4548-4 #### [facility] ([id number]) [address] [place] [address] 67048 #### HA1C #### [facility] ([id number]) [address], [address] [place] [address] Chloride [Moles/Vol] 96 mmol/L Low 98-109 [place] Comment on above: Performed By: #### P INR, 17372-6, CMP, 39476-7, 6873-4, 45898-9, CBCA, 4548-4 #### [facility] ([id number]) [address] [place] [address] 34476 #### HA1C #### [facility] ([id number]) [address], [address] [place] [address] CO2 [Moles/Vol] 24 mmol/L Normal 22-32 [facility] Comment on above: Performed By: #### P INR, 91214-1, CMP, 13394-2, 6873-4, 08872-0, CBCA, 4548-4 #### [facility] ([id number]) [address] [place] [address] 58530 #### HA1C #### [facility] ([id number]) [address] [facility], [address] [place] [address] Creatinine [Mass/Vol] 0.75 mg/dL Normal 0.70-1.20 [facility] Comment on above: Result Comment: METH OD TRACEABLE TO IDMS STANDARD Performed By: #### P INR, 64313-8, CMP, 76240-7, 6873-4, 31904-0, CBCA, 4548-4 #### [facility] ([id number]) [address] [place] [address] 30137 #### HA1C #### [facility] ([id number]) [address] [facility], [address] [place] [address] eGFR (CKD-EPI) NON-RACE DEPENDENT >90 Normal >59 [facility] Comment on above: Result Comment: Reported eGFR is based on the CKD-EPI 2020 equation that does not use a race coefficient. Performed By: #### P INR, 81778-9, CMP, 15149-1, 6873-4, 24080-5, CBCA, 4548-4 #### [facility] ([id number]) [address] [place] [address] 71877 #### HA1C #### [facility] ([id number]) [address] [facility], [address] [place] [address] Glucose [Mass/Vol] 263 mg/dL High 65-99 [facility] Comment on above: Performed By: #### P INR, 11405-6, CMP, 29854-7, 6873-4, 26114-4, CBCA, 4548-4 #### [facility] ([id number]) [address] [place] [address] 65003 #### HA1C #### [facility] ([id number]) [address], [address] [place] [address] Potassium [Moles/Vol] 4.2 mmol/L Normal 3.5-5.0 [facility] Comment on above: Performed By: #### P INR, 59317-8, CMP, 24602-8, 6873-4, 05165-0, CBCA, 4548-4 #### [facility] ([id number]) [address] [place] [address] 22533 #### HA1C #### [facility] ([id number]) [address], [address] [place] [address] Sodium [Moles/Vol] 131 mmol/L Low 134-146 [facility] Comment on above: Performed By: #### P INR, 30406-8, CMP, 88152-5, 6873-4, 88473-2, CBCA, 4548-4 #### [facility] ([id number]) [address] [place] [address] 58442 #### HA1C #### [facility] ([id number]) [address], [address] [place] [address] Urea nitrogen [Mass/Vol] 21 mg/dL Normal 5-27 [facility] Comment on above: Performed By: #### P INR, 84910-9, CMP, 79911-3, 6873-4, 86129-3, CBCA, 4548-4 #### [facility] ([id number]) [address] [place] [address] 15971 #### HA1C #### [facility] ([id number]) [address], [address] [place] [address] CBC AND AUTO DIFFon 01-03-20 24 Erythrocyte distribution width (RBC) [Ratio] 13.8 % Normal 11.5-15.0 [facility] Comment on above: Performed By: #### P INR, 48777-0, CMP, 53850-0, 6873-4, 08740-6, CBCA, 4548-4 #### [facility] ([id number]) [address] [place] [address] 52252 #### HA1C #### [facility] ([id number]) [address], [address] [place] [address] Hematocrit (Bld) [Volume fraction] 46.7 % Normal 39-49 [facility] Comment on above: Performed By: #### P INR, 29776-9, CMP, 03898-3, 6873-4, 80058-5, CBCA, 4548-4 #### [facility] ([id number]) [address] [place] [address] 40944 #### HA1C #### [facility] ([id number]) [address] [facility], [address] [place] [address] Hemoglobin (Bld) [Mass/Vol] 16.0 g/dL Normal 13.0-17.0 [facility] Comment on above: Performed By: #### P INR, 70870-1, CMP, 51905-4, 6873-4, 17585-2, CBCA, 4548-4 #### [facility] ([id number]) [address] [place] [address] 28359 #### HA1C #### [facility] ([id number]) [address] [facility], [address] [place] [address] LYMPHOCYTE, ATYPICAL 8.8 % Normal [place] Comment on above: Performed By: #### P INR, 69627-9, CMP, 44441-5, 6873-4, 98411-2, CBCA, 4548-4 #### [facility] ([id number]) [address] [place] [address] 57063 #### HA1C #### [facility] ([id number]) [address], [address] [place] [address] Lymphocytes (Bld) [#/Vol] 1.9 10*3/uL Normal 1.0-3.5 [facility] Comment on above: Performed By: #### P INR, 44558-2, CMP, 74014-9, 6873-4, 23163-1, CBCA, 4548-4 #### [facility] ([id number]) [address] [place] [address] 81041 #### HA1C #### [facility] ([id number]) [address], [address] [place] [address] Lymphocytes/100 WBC (Bld) 46.1 % Normal [facility] Comment on above: Performed By: #### P INR, 02493-1, CMP, 33976-5, 6873-4, 22402-5, CBCA, 4548-4 #### [facility] ([id number]) [address] [place] [address] 33982 #### HA1C #### [facility] ([id number]) [address], [address] [place] [address] MCH (RBC) [Entitic mass] 29.4 pg Normal 27-34 [facility] Comment on above: Performed By: #### P INR, 69124-1, CMP, 45953-7, 6873-4, 62066-7, CBCA, 4548-4 #### [facility] ([id number]) [address] [place] [address] 16810 #### HA1C #### [facility] ([id number]) [address], [address] [place] [address] MCHC (RBC) [Mass/Vol] 34.2 g/dL Normal 32-36 [facility] Comment on above: Performed By: #### P INR, 00397-9, CMP, 17690-1, 6873-4, 68862-9, CBCA, 4548-4 #### [facility] ([id number]) [address] [place] [address] 90669 #### HA1C #### [facility] ([id number]) [address], [address] [place] [address] MCV (RBC) [Entitic vol] 86 fL Normal 80-100 P [facility] Comment on above: Performed By: #### P INR, 60061-2, CMP, 70523-7, 6873-4, 76815-5, CBCA, 4548-4 #### [facility] ([id number]) [address] [place] [address] 66599 #### HA1C #### [facility] ([id number]) [address], [address] [place] [address] Monocytes (Bld) [#/Vol] 0.2 10*3/uL Normal 0-0.9 [facility] Comment on above: Performed By: #### P INR, 24632-0, CMP, 55881-1, 6873-4, 44342-9, CBCA, 4548-4 #### [facility] ([id number]) [address] [place] [address] 73061 #### HA1C #### [facility] ([id number]) [address], [address] [place] [address] Monocytes/100 WBC (Bld) 4.9 % Normal P [facility] Comment on above: Performed By: #### P INR, 29387-6, CMP, 36527-6, 6873-4, 64611-4, CBCA, 4548-4 #### [facility] ([id number]) [address] [place] [address] #### HA1C #### [facility] ([id number]) [address], [address] [place] [address] Neutrophils (Bld) [#/Vol] 1.4 10*3/uL Low 1.5-6.6 [facility] Comment on above: Performed By: #### P INR, 56829-3, CMP, 40860-4, 6873-4, 39818-0, CBCA, 4548-4 #### [facility] ([id number]) [address] [place] [address] 80656 #### HA1C #### [facility] ([id number]) [address], [address] [place] [address] Platelet mean volume (Bld) [Entitic vol] 7.7 fL Normal 7-12 [facility] Comment on above: Performed By: #### P INR, 82728-3, CMP, 49088-4, 6873-4, 81060-0, CBCA, 4548-4 #### [facility] ([id number]) [address] [place] [address] 60042 #### HA1C #### [facility] ([id number]) [address], [address] [place] [address] Platelets (Bld) [#/Vol] 214 10*3/uL Normal 150-450 [facility] Comment on above: Performed By: #### P INR, 23371-7, CMP, 06942-5, 6873-4, 25106-6, CBCA, 4548-4 #### [facility] ([id number]) [address] [place] [address] 13045 #### HA1C #### [facility] ([id number]) [address], [address] [place] [address] RBC COUNT 5.43 X10E12/L Normal 4.10-5.70 [facility] Comment on above: Performed By: #### P INR, 23945-3, CMP, 87246-7, 6873-4, 52427-6, CBCA, 4548-4 #### [facility] ([id number]) [address] [place] [address] 04968 #### HA1C #### [facility] ([id number]) [address] [facility], [address] [place] [address] SEG NEUTROPHIL 40.2 % Normal [facility] Comment on above: Performed By: #### P INR, 11930-3, CMP, 18886-4, 6873-4, 13683-1, CBCA, 4548-4 #### [facility] ([id number]) [address] [place] [address] 36792 #### HA1C #### [facility] ([id number]) [address] [place] [address], [address] [place] [address] WBC (Bld) [#/Vol] 3.4 10*3/uL Low 4.0-11.0 [facility] Comment on above: Performed By: #### P INR, 04092-8, CMP, 61413-6, 6873-4, 16111-0, CBCA, 4548-4 #### [facility] ([id number]) [address] [place] [address] 43877 #### HA1C #### [facility] ([id number]) [address] [facility], [address] [place] [address] COMPREHENSIVE METABOLIC PANE [place] 10-29-2023 Albumin [Mass/Vol] 4.1 g/dL Normal 3.2-5.3 [facility] Comment on above: Performed By: #### P INR, 99563-2, CMP, 74009-3, 6873-4, 52835-3, CBCA, 4548-4 #### [facility] ([id number]) [address] [place] [address] 77435 #### HA1C #### [facility] ([id number]) [address], [address] [place] [address] ALP [Catalytic activity/Vol] 66 U/L Normal 39-130 [facility] Comment on above: Performed By: #### P INR, 61584-7, CMP, 92324-0, 6873-4, 03509-6, CBCA, 4548-4 #### [facility] ([id number]) [address] [place] [address] 97023 #### HA1C #### [facility] ([id number]) [address] [facility], [address] [place] [address] ALT [Catalytic activity/Vol] 27 U/L Normal 0-40 [facility] Comment on above: Performed By: #### P INR, 49633-0, CMP, 54007-0, 6873-4, 75962-3, CBCA, 4548-4 #### [facility] ([id number]) [address] [place] [address] 40703 #### HA1C #### [facility] ([id number]) [address] [facility], [address] [place] [address] Anion gap [Moles/Vol] 9 mmol/L Normal 5-15 [facility] Comment on above: Performed By: #### P INR, 23751-2, CMP, 80976-4, 6873-4, 58665-8, CBCA, 4548-4 #### [facility] ([id number]) [address] [place] [address] 50126 #### HA1C #### [facility] ([id number]) [address] [facility], [address] [place] [address] AST [Catalytic activity/Vol] 19 U/L Normal 0-41 [facility] Comment on above: Performed By: #### P INR, 14838-6, CMP, 22845-1, 6873-4, 00376-7, CBCA, 4548-4 #### [facility] ([id number]) [address] [place] [address] 57959 #### HA1C #### [facility] ([id number]) [address] [facility], [address] [place] [address] Bilirubin [Mass/Vol] 0.7 mg/dL Normal 0.3-1.2 [place] Comment on above: Performed By: #### P INR, 17709-5, CMP, 23577-3, 6873-4, 12841-6, CBCA, 4548-4 #### [facility] ([id number]) [address] [place] [address] 65572 #### HA1C #### [facility] ([id number]) [address] [facility], [address] [place] [address] Calcium [Mass/Vol] 9.1 mg/dL Normal 8.5-10.5 [facility] Comment on above: Performed By: #### P INR, 52550-2, CMP, 29805-5, 6873-4, 90706-3, CBCA, 4548-4 #### [facility] ([id number]) [address] [place] [address] 73631 #### HA1C #### [facility] ([id number]) [address] [facility], [address] [place] [address] Chloride [Moles/Vol] 94 mmol/L Low 98-109 [place] Comment on above: Performed By: #### P INR, 55254-9, CMP, 67948-5, 6873-4, 12025-0, CBCA, 4548-4 #### [facility] ([id number]) [address] [place] [address] 28130 #### HA1C #### [facility] ([id number]) [address], [address] [place] [address] CO2 [Moles/Vol] 28 mmol/L Normal 22-32 [facility] Comment on above: Performed By: #### P INR, 19854-2, CMP, 81948-5, 6873-4, 27609-3, CBCA, 4548-4 #### [facility] ([id number]) [address] [place] [address] 12597 #### HA1C #### [facility] ([id number]) [address], [address] [place] [address] Creatinine [Mass/Vol] 0.78 mg/dL Normal 0.70-1.20 [facility] Comment on above: Result Comment: METH OD TRACEABLE TO IDMS STANDARD Performed By: #### P INR, 76592-1, CMP, 74104-6, 6873-4, 97374-9, CBCA, 4548-4 #### [facility] ([id number]) [address] [place] [address] 55105 #### HA1C #### [facility] ([id number]) [address], [address] [place] [address] eGFR (CKD-EPI) NON-RACE DEPENDENT >90 Normal >59 [facility] Comment on above: Result Comment: Reported eGFR is based on the CKD-EPI 2021 equation that does not use a race coefficient. Performed By: #### P INR, 77114-7, CMP, 75015-0, 6873-4, 55584-7, CBCA, 4548-4 #### [facility] ([id number]) [address] [place] [address] 40817 #### HA1C #### [facility] ([id number]) [address], [address] [place] [address] Glucose [Mass/Vol] 232 mg/dL High 65-99 [facility] Comment on above: Performed By: #### P INR, 14753-8, CMP, 28447-4, 6873-4, 35725-5, CBCA, 4548-4 #### [facility] ([id number]) [address] [place] [address] 32775 #### HA1C #### [facility] ([id number]) [address], [address] [place] [address] Potassium [Moles/Vol] 4.1 mmol/L Normal 3.5-5.0 [facility] Comment on above: Performed By: #### P INR, 48145-4, CMP, 37258-4, 6873-4, 48609-6, CBCA, 4548-4 #### [facility] ([id number]) [address] [place] [address] 14725 #### HA1C #### [facility] ([id number]) [address], [address] [place] [address] Protein [Mass/Vol] 7.1 g/dL Normal 6.0-8.0 [facility] Comment on above: Performed By: #### P INR, 33901-2, CMP, 25586-5, 6873-4, 83597-9, CBCA, 4548-4 #### [facility] ([id number]) [address] [place] [address] 48[address] #### HA1C #### [facility] ([id number]) [address], [address] [place] [address] Sodium [Moles/Vol] 131 mmol/L Low 134-146 [facility] Comment on above: Performed By: #### P INR, 44945-1, CMP, 93888-0, 6873-4, 32519-1, CBCA, 4548-4 #### [facility] ([id number]) [address] [place] [address] #### HA1C #### [facility] ([id number]) [address] [place] [address], [address] [place] [address] U[place] nitrogen [Mass/Vol] 14 mg/dL Normal 5-27 [facility] Comment on above: Performed By: #### P INR, 86789-3, CMP, 35599-3, 6873-4, 34128-7, CBCA, 4548-4 #### [facility] ([id number]) [address] [place] [address] 77269 #### HA1C #### [facility] ([id number]) [address] [place] [address], [address] [address] MAGNESIUMon 10-29-2023 Magnesium [Mass/Vol] 1.9 mg/dL Normal 1.8-2.6 [place] Comment on above: Performed By: #### P INR, 62605-3, CMP, 80522-0, 6873-4, 30431-1, CBCA, 4548-4 #### [facility] ([id number]) [address] [place] [address] 85648 #### HA1C #### [facility] ([id number]) [address] [place] [address], [address] [place] [address] CBC AND AUTO DIFFon 10-28-19 24 ABSOLUTE BASOPHIL 0.1 X10E9/L Normal 0.0-0.2 [facility] Comment on above: Performed By: #### P INR, 30772-5, CMP, 98306-9, 6873-4, 58981-2, CBCA, 4548-4 #### [facility] ([id number]) [address] [place] [address] 60642 #### HA1C #### [facility] ([id number]) [address] [place] [address], [address] [place] [address] ABSOLUTE NEUTROPHIL 1.5 X10E9/L Normal 1.5-6.6 [place] Comment on above: Performed By: #### P INR, 86556-5, CMP, 60399-9, 6873-4, 37331-6, CBCA, 4548-4 #### [facility] ([id number]) [address] [place] [address] 92905 #### HA1C #### [facility] ([id number]) [address] [facility], [address] [place] [address] Basophils/100 WBC (Bld) 1.4 % Normal P [facility] Comment on above: Performed By: #### P INR, 00424-5, CMP, 68109-9, 6873-4, 85757-0, CBCA, 4548-4 #### [facility] ([id number]) [address] [place] [address] 88110 #### HA1C #### [facility] ([id number]) [address] [place] [address], [address] [place] [address] Eosinophils (Bld) [#/Vol] 0.1 10*3/uL Normal 0.0-0.4 [facility] Comment on above: Performed By: #### P INR, 76418-1, CMP, 82899-7, 6873-4, 76768-7, CBCA, 4548-4 #### [facility] ([id number]) [address] [place] [address] 96870 #### HA1C #### [facility] ([id number]) [address] [place] [address], [address] [place] [address] Eosinophils/100 WBC (Bld) 3.1 % Normal [facility] Comment on above: Performed By: #### P INR, 04712-7, CMP, 46596-0, 6873-4, 24809-7, CBCA, 4548-4 #### [facility] ([id number]) [address] [place] [address] 69776 #### HA1C #### [facility] ([id number]) [address], [address] [place] [address] Erythrocyte distribution width (RBC) [Ratio] 13.6 % Normal 11.5-15.0 [facility] Comment on above: Performed By: #### P INR, 38147-7, CMP, 81393-9, 6873-4, 68327-7, CBCA, 4548-4 #### [facility] ([id number]) [address] [place] [address] 54580 #### HA1C #### [facility] ([id number]) [address], [address] [place] [address] Hematocrit (Bld) [Volume fraction] 42.8 % Normal 39-49 [facility] Comment on above: Performed By: #### P INR, 97456-0, CMP, 67088-3, 6873-4, 28265-2, CBCA, 4548-4 #### [facility] ([id number]) [address] [place] [address] 92658 #### HA1C #### [facility] ([id number]) [address], [address] [place] [address] Hemoglobin (Bld) [Mass/Vol] 14.9 g/dL Normal 13.0-17.0 [facility] Comment on above: Performed By: #### P INR, 02202-0, CMP, 87864-5, 6873-4, 64470-3, CBCA, 4548-4 #### [facility] ([id number]) [address] [place] [address] 59725 #### HA1C #### [facility] ([id number]) [address], [address] [place] [address] Lymphocytes (Bld) [#/Vol] 1.8 10*3/uL Normal 1.0-3.5 [facility] Comment on above: Performed By: #### P INR, 65679-6, CMP, 48339-8, 6873-4, 38288-7, CBCA, 4548-4 #### [facility] ([id number]) [address] [place] [address] 54731 #### HA1C #### [facility] ([id number]) [address] [facility], [address] [place] [address] Lymphocytes/100 WBC (Bld) 46.0 % Normal [facility] Comment on above: Performed By: #### P INR, 27297-9, CMP, 32234-2, 6873-4, 33609-0, CBCA, 4548-4 #### [facility] ([id number]) [address] [place] [address] 61983 #### HA1C #### [facility] ([id number]) [address] [facility], [address] [place] [address] MCH (RBC) [Entitic mass] 29.6 pg Normal 27-34 [facility] Comment on above: Performed By: #### P INR, 46263-7, CMP, 38111-5, 6873-4, 91921-5, CBCA, 4548-4 #### [facility] ([id number]) [address] [place] [address] 54294 #### HA1C #### [facility] ([id number]) [address], [address] [place] [address] MCHC (RBC) [Mass/Vol] 34.7 g/dL Normal 32-36 [facility] Comment on above: Performed By: #### P INR, 57879-5, CMP, 91220-2, 6873-4, 82857-0, CBCA, 4548-4 #### [facility] ([id number]) [address] [place] [address] 27898 #### HA1C #### [facility] ([id number]) [address], [address] [place] [address] MCV (RBC) [Entitic vol] 86 fL Normal 80-100 P [facility] Comment on above: Performed By: #### P INR, 06499-9, CMP, 79675-4, 6873-4, 58857-9, CBCA, 4548-4 #### [facility] ([id number]) [address] [place] [address] 50507 #### HA1C #### [facility] ([id number]) [address] [facility], [address] [place] [address] Monocytes (Bld) [#/Vol] 0.4 10*3/uL Normal 0-0.9 [facility] Comment on above: Performed By: #### P INR, 66801-5, CMP, 90531-7, 6873-4, 13110-6, CBCA, 4548-4 #### [facility] ([id number]) [address] [place] [address] 89324 #### HA1C #### [facility] ([id number]) [address] [facility], [address] [place] [address] Monocytes/100 WBC (Bld) 10.4 % Normal [facility] Comment on above: Performed By: #### P INR, 86975-6, CMP, 17504-3, 6873-4, 33948-5, CBCA, 4548-4 #### [facility] ([id number]) [address] [place] [address] 71299 #### HA1C #### [facility] ([id number]) [address], [address] [place] [address] Neutrophils/100 WBC (Bld) 39.1 % Normal [facility] Comment on above: Performed By: #### P INR, 87118-5, CMP, 24356-2, 6873-4, 11803-7, CBCA, 4548-4 #### [facility] ([id number]) [address] [place] [address] 43467 #### HA1C #### [facility] ([id number]) [address] [facility], [address] [place] [address] Platelet mean volume (Bld) [Entitic vol] 7.9 fL Normal 7-12 [facility] Comment on above: Performed By: #### P INR, 94404-9, CMP, 41561-9, 6873-4, 87011-7, CBCA, 4548-4 #### [facility] ([id number]) [address] [place] [address] 79659 #### HA1C #### [facility] ([id number]) [address] [facility], [address] [place] [address] Platelets (Bld) [#/Vol] 197 10*3/uL Normal 150-450 [facility] Comment on above: Performed By: #### P INR, 61525-4, CMP, 72129-6, 6873-4, 97582-8, CBCA, 4548-4 #### [facility] ([id number]) [address] [place] [address] 01871 #### HA1C #### [facility] ([id number]) [address] [facility], [address] [place] [address] RBC COUNT 5.01 X10E12/L Normal 4.10-5.70 [facility] Comment on above: Performed By: #### P INR, 67712-9, CMP, 23534-0, 6873-4, 47157-7, CBCA, 4548-4 #### [facility] ([id number]) [address] [place] [address] 71981 #### HA1C #### [facility] ([id number]) [address], [address] [place] [address] WBC (Bld) [#/Vol] 3.9 10*3/uL Low 4.0-11.0 [facility] Comment on above: Performed By: #### P INR, 99350-4, CMP, 54268-7, 6873-4, 99588-5, CBCA, 4548-4 #### [facility] ([id number]) [address] [place] [address] 97902 #### HA1C #### [facility] ([id number]) [address] [facility], [address] [place] [address] COMPREHENSIVE METABOLIC PANE [place] 10-28-2023 Albumin [Mass/Vol] 3.8 g/dL Normal 3.2-5.3 [facility] Comment on above: Performed By: #### P INR, 48984-0, CMP, 12635-4, 6873-4, 45183-8, CBCA, 4548-4 #### [facility] ([id number]) [address] [place] [address] 30539 #### HA1C #### [facility] ([id number]) [address] [facility], [address] [place] [address] ALP [Catalytic activity/Vol] 61 U/L Normal 39-130 [facility] Comment on above: Performed By: #### P INR, 46457-5, CMP, 86433-5, 6873-4, 00665-4, CBCA, 4548-4 #### [facility] ([id number]) [address] [place] [address] 72872 #### HA1C #### [facility] ([id number]) [address], [address] [place] [address] ALT [Catalytic activity/Vol] 22 U/L Normal 0-40 [facility] Comment on above: Performed By: #### P INR, 27740-1, CMP, 25188-5, 6873-4, 05068-4, CBCA, 4548-4 #### [facility] ([id number]) [address] [place] [address] 61487 #### HA1C #### [facility] ([id number]) [address], [address] [place] [address] Anion gap [Moles/Vol] 10 mmol/L Normal 5-15 [facility] Comment on above: Performed By: #### P INR, 61516-4, CMP, 64381-6, 6873-4, 54170-3, CBCA, 4548-4 #### [facility] ([id number]) [address] [place] [address] 63033 #### HA1C #### [facility] ([id number]) [address] [facility], [address] [place] [address] AST [Catalytic activity/Vol] 18 U/L Normal 0-41 [facility] Comment on above: Performed By: #### P INR, 82849-4, CMP, 16091-6, 6873-4, 33194-6, CBCA, 4548-4 #### [facility] ([id number]) [address] [place] [address] 66802 #### HA1C #### [facility] ([id number]) [address], [address] [place] [address] Bilirubin [Mass/Vol] 0.8 mg/dL Normal 0.3-1.2 [place] Comment on above: Performed By: #### P INR, 75063-5, CMP, 82450-4, 6873-4, 80245-5, CBCA, 4548-4 #### [facility] ([id number]) [address] [place] [address] 09001 #### HA1C #### [facility] ([id number]) [address], [address] [place] [address] Calcium [Mass/Vol] 8.5 mg/dL Normal 8.5-10.5 [facility] Comment on above: Performed By: #### P INR, 71060-3, CMP, 40032-4, 6873-4, 93665-0, CBCA, 4548-4 #### [facility] ([id number]) [address] [place] [address] 98751 #### HA1C #### [facility] ([id number]) [address], [address] [place] [address] Chloride [Moles/Vol] 94 mmol/L Low 98-109 [place] Comment on above: Performed By: #### P INR, 40459-2, CMP, 47665-3, 6873-4, 76648-1, CBCA, 4548-4 #### [facility] ([id number]) [address] [place] [address] 58857 #### HA1C #### [facility] ([id number]) [address], [address] [place] [address] CO2 [Moles/Vol] 26 mmol/L Normal 22-32 [facility] Comment on above: Performed By: #### P INR, 96067-0, CMP, 72681-4, 6873-4, 60505-6, CBCA, 4548-4 #### [facility] ([id number]) [address] [place] [address] 61350 #### HA1C #### [facility] ([id number]) [address], [address] [place] [address] Creatinine [Mass/Vol] 0.79 mg/dL Normal 0.70-1.20 [facility] Comment on above: Result Comment: METH OD TRACEABLE TO IDMS STANDARD Performed By: #### P INR, 62967-9, CMP, 48579-2, 6873-4, 59251-5, CBCA, 4548-4 #### [facility] ([id number]) [address] [place] [address] 20278 #### HA1C #### [facility] ([id number]) [address], [address] [place] [address] eGFR (CKD-EPI) NON-RACE DEPENDENT >90 Normal >59 [facility] Comment on above: Result Comment: Reported eGFR is based on the CKD-EPI 2020 equation that does not use a race coefficient. Performed By: #### P INR, 47103-4, CMP, 12640-7, 6873-4, 65992-2, CBCA, 4548-4 #### [facility] ([id number]) [address] [place] [address] 63186 #### HA1C #### [facility] ([id number]) [address], [address] [place] [address] Glucose [Mass/Vol] 228 mg/dL High 65-99 [facility] Comment on above: Performed By: #### P INR, 10907-4, CMP, 28276-5, 6873-4, 67611-6, CBCA, 4548-4 #### [facility] ([id number]) [address] [place] [address] 25691 #### HA1C #### [facility] ([id number]) [address], [address] [place] [address] Potassium [Moles/Vol] 3.7 mmol/L Normal 3.5-5.0 [facility] Comment on above: Performed By: #### P INR, 75116-2, CMP, 69302-5, 6873-4, 74336-0, CBCA, 4548-4 #### [facility] ([id number]) [address] [place] [address] 91936 #### HA1C #### [facility] ([id number]) [address], [address] [place] [address] Protein [Mass/Vol] 6.3 g/dL Normal 6.0-8.0 [facility] Comment on above: Performed By: #### P INR, 01321-0, CMP, 39265-2, 6873-4, 70279-4, CBCA, 4548-4 #### [facility] ([id number]) [address] [place] [address] 63180 #### HA1C #### [facility] ([id number]) [address] [facility], [address] [place] [address] Sodium [Moles/Vol] 130 mmol/L Low 134-146 [facility] Comment on above: Performed By: #### P INR, 42757-4, CMP, 86257-3, 6873-4, 37295-9, CBCA, 4548-4 #### [facility] ([id number]) [address] [place] [address] 64457 #### HA1C #### [facility] ([id number]) [address], [address] [place] [address] Urea nitrogen [Mass/Vol] 16 mg/dL Normal 5-27 [facility] Comment on above: Performed By: #### P INR, 08291-9, CMP, 68948-3, 6873-4, 06175-4, CBCA, 4548-4 #### [facility] ([id number]) [address] [place] [address] 68321 #### HA1C #### [facility] ([id number]) [address], [address] [place] [address] CT CTA CAROTIDon 10-28-2023 CT CTA CAROTID [...] Giles MD on 10/28/2023 12:26 PM Normal [facility] CT CTA HEADon 10-28-2023 CT CTA HEAD [...] Mayes MD on 10/28/2023 12:38 PM Normal [facility] Glucose Glucometer (BldC) [M ass/Vol]on 10-28-2023 Glucose [Mass/Vol] 226 mg/dL High 65-99 [facility] Glucose [Mass/Vol] 279 mg/dL High 65-99 [facility] Glucose [Mass/Vol] 248 mg/dL High 65-99 [facility] Glucose [Mass/Vol] 221 mg/dL High 65-99 [facility] Lipid 1996 panelon Cholesterol [Mass/Vol] 219 mg/dL High 150-200 [facility] Comment on above: Performed By: #### P INR, 83639-3, CMP, 80653-1, 6873-4, 90212-7, CBCA, 4548-4 #### [facility] ([id number]) [address] [place] [address] 09393 #### HA1C #### [facility] ([id number]) [address], [address] [place] [address] Cholesterol in HDL [Mass/Vol] 43 mg/dL Normal >39 [facility] Comment on above: Result Comment: HDL <40 mg/dL - High Risk HDL > or = 40mg/dL- Desirable HDL >60 mg/dL - Negative Risk Performed By: #### P INR, 30099-7, CMP, 45691-6, 6873-4, 74515-9, CBCA, 4548-4 #### [facility] ([id number]) [address] [place] [address] 93296 #### HA1C #### [facility] ([id number]) [address], [address] [place] [address] Cholesterol in LDL [Mass/Vol] 143 mg/dL High <130 [facility] Comment on above: Result Comment: LDL <100 mg/dL - Desirable LDL >160 mg/dL - High Risk Performed By: #### P INR, 07544-2, CMP, 97228-3, 6873-4, 56438-3, CBCA, 4548-4 #### [facility] ([id number]) [address] [place] [address] 22454 #### HA1C #### [facility] ([id number]) [address] [facility], [address] [place] [address] Cholesterol in VLDL [Mass/Vol] 33 mg/dL High 0-30 [facility] Comment on above: Performed By: #### P INR, 87153-7, CMP, 80330-8, 6873-4, 35673-8, CBCA, 4548-4 #### [facility] ([id number]) [address] [place] [address] 71429 #### HA1C #### [facility] ([id number]) [address] [facility], [address] [place] [address] CHOLESTEROL:HDL 5.1 High 1.0-5.0 [facility] Comment on above: Performed By: #### P INR, 05431-2, CMP, 68296-9, 6873-4, 70015-4, CBCA, 4548-4 #### [facility] ([id number]) [address] [place] [address] 32972 #### HA1C #### [facility] ([id number]) [address] [facility], [address] [place] [address] Triglyceride [Mass/Vol] 164 mg/dL High 27-150 [facility] Comment on above: Performed By: #### P INR, 07052-4, CMP, 85865-9, 6873-4, 60029-9, CBCA, 4548-4 #### [facility] ([id number]) [address] [place] [address] #### HA1C #### [facility] ([id number]) [address] [facility], [address] [place] [address] MAGNESIUMon 10-28-2023 Magnesium [Mass/Vol] 1.8 mg/dL Normal 1.8-2.6 [place] Comment on above: Performed By: #### P INR, 44387-9, CMP, 36419-5, 6873-4, 56365-9, CBCA, 4548-4 #### [facility] ([id number]) [address] [place] [address] 93510 #### HA1C #### [facility] ([id number]) [address] [facility], [address] [place] [address] MR BRAIN WO CONTon MR BRAIN WO CONT MR BRAIN WO [...] Anderson MD on 10/28/2023 10:39 AM Normal [facility] CBC AND AUTO DIFFon 10-27-19 24 ABSOLUTE BASOPHIL 0.0 X10E9/L Normal 0.0-0.2 [facility] Comment on above: Performed By: #### P INR, 47738-2, CMP, 71923-0, 6873-4, 27418-4, CBCA, 4548-4 #### [facility] ([id number]) [address] [place] [address] 14479 #### HA1C #### [facility] ([id number]) [address] [facility], [address] [place] [address] ABSOLUTE NEUTROPHIL 1.8 X10E9/L Normal 1.5-6.6 [place] Comment on above: Performed By: #### P INR, 84463-3, CMP, 52086-7, 6873-4, 84584-6, CBCA, 4548-4 #### [facility] ([id number]) [address] [place] [address] 58251 #### HA1C #### [facility] ([id number]) [address] [facility], [address] [place] [address] Basophils/100 WBC (Bld) 1.2 % Normal P [facility] Comment on above: Performed By: #### P INR, 42642-3, CMP, 27603-0, 6873-4, 55825-9, CBCA, 4548-4 #### [facility] ([id number]) [address] [place] [address] 74941 #### HA1C #### [facility] ([id number]) [address], [address] [place] [address] Eosinophils (Bld) [#/Vol] 0.1 10*3/uL Normal 0.0-0.4 [facility] Comment on above: Performed By: #### P INR, 15519-5, CMP, 37220-3, 6873-4, 15584-4, CBCA, 4548-4 #### [facility] ([id number]) [address] [place] [address] 50646 #### HA1C #### [facility] ([id number]) [address], [address] [place] [address] Eosinophils/100 WBC (Bld) 2.5 % Normal [facility] Comment on above: Performed By: #### P INR, 38551-3, CMP, 90521-6, 6873-4, 18587-8, CBCA, 4548-4 #### [facility] ([id number]) [address] [place] [address] 93354 #### HA1C #### [facility] ([id number]) [address], [address] [place] [address] Erythrocyte distribution width (RBC) [Ratio] 13.5 % Normal 11.5-15.0 [facility] Comment on above: Performed By: #### P INR, 08371-8, CMP, 69825-2, 6873-4, 04243-8, CBCA, 4548-4 #### [facility] ([id number]) [address] [place] [address] 67745 #### HA1C #### [facility] ([id number]) [address], [address] [place] [address] Hematocrit (Bld) [Volume fraction] 43.3 % Normal 39-49 [facility] Comment on above: Performed By: #### P INR, 83433-8, CMP, 30971-5, 6873-4, 55025-5, CBCA, 4548-4 #### [facility] ([id number]) [address] [place] [address] #### HA1C #### [facility] ([id number]) [address], [facility] [address] [place] [address] Hemoglobin (Bld) [Mass/Vol] 14.9 g/dL Normal 13.0-17.0 [facility] Comment on above: Performed By: #### P INR, 67070-2, CMP, 06287-7, 6873-4, 33152-8, CBCA, 4548-4 #### [facility] ([id number]) [address] [place] [address] #### HA1C #### [facility] ([id number]) [address], [facility] [address] [place] [address] Lymphocytes (Bld) [#/Vol] 1.3 10*3/uL Normal 1.0-3.5 [facility] Comment on above: Performed By: #### P INR, 12134-4, CMP, 62904-5, 6873-4, 78605-0, CBCA, 4548-4 #### [facility] ([id number]) [address] [place] [address] #### HA1C #### [facility] ([id number]) [address], [facility] [address] [place] [address] Lymphocytes/100 WBC (Bld) 36.9 % Normal [facility] Comment on above: Performed By: #### P INR, 05489-4, CMP, 75532-7, 6873-4, 51609-4, CBCA, 4548-4 #### [facility] ([id number]) [address] [place] [address] #### HA1C #### [facility] ([id number]) [address] [facility], [address] [place] [address] MCH (RBC) [Entitic mass] 29.3 pg Normal 27-34 [facility] Comment on above: Performed By: #### P INR, 55340-7, CMP, 35106-9, 6873-4, 42401-9, CBCA, 4548-4 #### [facility] ([id number]) [address] [place] [address] #### HA1C #### [facility] ([id number]) [address] [facility], [address] [place] [address] MCHC (RBC) [Mass/Vol] 34.4 g/dL Normal 32-36 [facility] Comment on above: Performed By: #### P INR, 90526-7, CMP, 48550-5, 6873-4, 30285-2, CBCA, 4548-4 #### [facility] ([id number]) [address] [place] [address] #### HA1C #### [facility] ([id number]) [address] [facility], [address] [place] [address] MCV (RBC) [Entitic vol] 85 fL Normal 80-100 P [facility] Comment on above: Performed By: #### P INR, 27452-3, CMP, 06193-2, 6873-4, 88410-6, CBCA, 4548-4 #### [facility] ([id number]) [address] [place] [address] #### HA1C #### [facility] ([id number]) [address] [facility], [address] [place] [address] Monocytes (Bld) [#/Vol] 0.3 10*3/uL Normal 0-0.9 [facility] Comment on above: Performed By: #### P INR, 97984-4, CMP, 96403-4, 6873-4, 92994-9, CBCA, 4548-4 #### [facility] ([id number]) [address] [place] [address] #### HA1C #### [facility] ([id number]) [address] [facility], [address] [place] [address] Monocytes/100 WBC (Bld) 8.4 % Normal [facility] Comment on above: Performed By: #### P INR, 05751-3, CMP, 31903-1, 6873-4, 30655-7, CBCA, 4548-4 #### [facility] ([id number]) [address] [place] [address] #### HA1C #### [facility] ([id number]) [address] [facility], [address] [place] [address] Neutrophils/100 WBC (Bld) 51.0 % Normal [facility] Comment on above: Performed By: #### P INR, 68728-9, CMP, 78057-6, 6873-4, 64283-5, CBCA, 4548-4 #### [facility] ([id number]) [address] [place] [address] #### HA1C #### [facility] ([id number]) [address], [address] [place] [address] Platelet mean volume (Bld) [Entitic vol] 7.7 fL Normal 7-12 [facility] Comment on above: Performed By: #### P INR, 59818-0, CMP, 07460-4, 6873-4, 85777-8, CBCA, 4548-4 #### [facility] ([id number]) [address] [place] [address] 89893 #### HA1C #### [facility] ([id number]) [address], [address] [place] [address] Platelets (Bld) [#/Vol] 192 10*3/uL Normal 150-450 [facility] Comment on above: Performed By: #### P INR, 50587-8, CMP, 40735-7, 6873-4, 13914-2, CBCA, 4548-4 #### [facility] ([id number]) [address] [place] [address] 99899 #### HA1C #### [facility] ([id number]) [address], [address] [place] [address] RBC COUNT 5.08 X10E12/L Normal 4.10-5.70 [facility] Comment on above: Performed By: #### P INR, 57038-7, CMP, 44452-9, 6873-4, 32079-1, CBCA, 4548-4 #### [facility] ([id number]) [address] [place] [address] 56843 #### HA1C #### [facility] ([id number]) [address], [address] [place] [address] WBC (Bld) [#/Vol] 3.6 10*3/uL Low 4.0-11.0 [facility] Comment on above: Performed By: #### P INR, 84732-3, CMP, 86450-6, 6873-4, 26919-5, CBCA, 4548-4 #### [facility] ([id number]) [address] [place] [address] 62955 #### HA1C #### [facility] ([id number]) [address], [address] [place] [address] COMPREHENSIVE METABOLIC PANE [place] 10-27-2023 Albumin [Mass/Vol] 4.0 g/dL Normal 3.2-5.3 [facility] Comment on above: Performed By: #### P INR, 58204-7, CMP, 60708-4, 6873-4, 78552-0, CBCA, 4548-4 #### [facility] ([id number]) [address] [place] [address] 00108 #### HA1C #### [facility] ([id number]) [address] [facility], [address] [place] [address] ALP [Catalytic activity/Vol] 65 U/L Normal 39-130 [facility] Comment on above: Performed By: #### P INR, 44684-3, CMP, 35058-9, 6873-4, 42510-0, CBCA, 4548-4 #### [facility] ([id number]) [address] [place] [address] 29704 #### HA1C #### [facility] ([id number]) [address] [facility], [address] [place] [address] ALT [Catalytic activity/Vol] 21 U/L Normal 0-40 [facility] Comment on above: Performed By: #### P INR, 24456-3, CMP, 10398-6, 6873-4, 19545-0, CBCA, 4548-4 #### [facility] ([id number]) [address] [place] [address] 43067 #### HA1C #### [facility] ([id number]) [address] [facility], [address] [place] [address] Anion gap [Moles/Vol] 4 mmol/L Low 5-15 [facility] Comment on above: Performed By: #### P INR, 14615-4, CMP, 65012-7, 6873-4, 40380-9, CBCA, 4548-4 #### [facility] ([id number]) [address] [place] [address] 73378 #### HA1C #### [facility] ([id number]) [address], [address] [place] [address] AST [Catalytic activity/Vol] 17 U/L Normal 0-41 [facility] Comment on above: Performed By: #### P INR, 94951-5, CMP, 90299-5, 6873-4, 72251-0, CBCA, 4548-4 #### [facility] ([id number]) [address] [place] [address] 06906 #### HA1C #### [facility] ([id number]) [address], [address] [place] [address] Bilirubin [Mass/Vol] 1.1 mg/dL Normal 0.3-1.2 [place] Comment on above: Performed By: #### P INR, 12062-8, CMP, 22326-1, 6873-4, 91194-4, CBCA, 4548-4 #### [facility] ([id number]) [address] [place] [address] 55773 #### HA1C #### [facility] ([id number]) [address], [address] [place] [address] Calcium [Mass/Vol] 8.3 mg/dL Low 8.5-10.5 [facility] Comment on above: Performed By: #### P INR, 80920-5, CMP, 79872-2, 6873-4, 09755-6, CBCA, 4548-4 #### [facility] ([id number]) [address] [place] [address] 77038 #### HA1C #### [facility] ([id number]) [address], [address] [place] [address] Chloride [Moles/Vol] 101 mmol/L Normal 98-109 [place] Comment on above: Performed By: #### P INR, 61517-8, CMP, 96469-6, 6873-4, 78298-6, CBCA, 4548-4 #### [facility] ([id number]) [address] [place] [address] 65038 #### HA1C #### [facility] ([id number]) [address], [address] [place] [address] CO2 [Moles/Vol] 24 mmol/L Normal 22-32 [facility] Comment on above: Performed By: #### P INR, 13861-3, CMP, 15397-8, 6873-4, 00442-3, CBCA, 4548-4 #### [facility] ([id number]) [address] [place] [address] 40366 #### HA1C #### [facility] ([id number]) [address], [address] [place] [address] Creatinine [Mass/Vol] 0.75 mg/dL Normal 0.70-1.20 [facility] Comment on above: Result Comment: METH OD TRACEABLE TO IDMS STANDARD Performed By: #### P INR, 65705-9, CMP, 60296-2, 6873-4, 74891-8, CBCA, 4548-4 #### [facility] ([id number]) [address] [place] [address] 01500 #### HA1C #### [facility] ([id number]) [address], [address] [place] [address] eGFR (CKD-EPI) NON-RACE DEPENDENT >90 Normal >59 [facility] Comment on above: Result Comment: Reported eGFR is based on the CKD-EPI 2020 equation that does not use a race coefficient. Performed By: #### P INR, 82691-0, CMP, 99663-1, 6873-4, 13088-4, CBCA, 4548-4 #### [facility] ([id number]) [address] [place] [address] 81226 #### HA1C #### [facility] ([id number]) [address], [address] [place] [address] Glucose [Mass/Vol] 272 mg/dL High 65-99 [facility] Comment on above: Performed By: #### P INR, 70472-7, CMP, 96037-9, 6873-4, 37301-7, CBCA, 4548-4 #### [facility] ([id number]) [address] [place] [address] 33898 #### HA1C #### [facility] ([id number]) [address] [facility], [address] [place] [address] Potassium [Moles/Vol] 4.1 mmol/L Normal 3.5-5.0 [facility] Comment on above: Performed By: #### P INR, 95033-9, CMP, 99559-3, 6873-4, 39216-1, CBCA, 4548-4 #### [facility] ([id number]) [address] [place] [address] 90203 #### HA1C #### [facility] ([id number]) [address], [address] [place] [address] Protein [Mass/Vol] 6.4 g/dL Normal 6.0-8.0 [facility] Comment on above: Performed By: #### P INR, 99500-0, CMP, 63900-9, 6873-4, 21598-4, CBCA, 4548-4 #### [facility] ([id number]) [address] [place] [address] 81256 #### HA1C #### [facility] ([id number]) [address], [address] [place] [address] Sodium [Moles/Vol] 129 mmol/L Low 134-146 [facility] Comment on above: Performed By: #### P INR, 66987-7, CMP, 49196-6, 6873-4, 11983-8, CBCA, 4548-4 #### [facility] ([id number]) [address] [place] [address] 49986 #### HA1C #### [facility] ([id number]) [address] [facility], [address] [place] [address] Urea nitrogen [Mass/Vol] 20 mg/dL Normal 5-27 [facility] Comment on above: Performed By: #### P INR, 78860-6, CMP, 60518-8, 6873-4, 77623-7, CBCA, 4548-4 #### [facility] ([id number]) [address] [place] [address] 45266 #### HA1C #### [facility] ([id number]) [address] [facility], [address] [place] [address] Glucose Glucometer (dC) [M ass/Vol]on 10-27-2023 Glucose [Mass/Vol] 293 mg/dL High 65-99 [facility] Glucose [Mass/Vol] 311 mg/dL High 65-99 [facility] Glucose [Mass/Vol] 270 mg/dL High 65-99 [facility] Glucose [Mass/Vol] 280 mg/dL High 65-99 [facility] Glucose [Mass/Vol] 260 mg/dL High 65-99 [facility] MAGNESIUMon 10-27-2023 Magnesium [Mass/Vol] 2.2 mg/dL Normal 1.8-2.6 [place] Comment on above: Performed By: #### P INR, 34982-9, CMP, 34978-7, 6873-4, 39260-6, CBCA, 4548-4 #### [facility] ([id number]) [address] [place] [address] 69192 #### HA1C #### [facility] ([id number]) [address] [facility], [address] [place] [address] Beta hydroxybutyrate [Moles/ Vol]on 10-26-2023 BetaHydroxybutyrate 1.69 mmol/L High 0.02-0.27 [place] Comment on above: Performed By: #### P INR, 39981-1, CMP, 45975-2, 6873-4, 71675-4, CBCA, 4548-4 #### [facility] ([id number]) [address] [place] [address] 00617 #### HA1C #### [facility] ([id number]) [address] [facility], [address] [place] [address] CBC AND AUTO DIFFon 10-26-20 ABSOLUTE BASOPHIL 0.0 X10E9/L Normal 0.0-0.2 [facility] Comment on above: Performed By: #### P INR, 79121-3, CMP, 39631-7, 6873-4, 09519-7, CBCA, 4548-4 #### [facility] ([id number]) [address] [place] [address] 43791 #### HA1C #### [facility] ([id number]) [address] [facility], [address] [place] [address] ABSOLUTE NEUTROPHIL 2.5 X10E9/L Normal 1.5-6.6 [place] Comment on above: Performed By: #### P INR, 21626-4, CMP, 82600-4, 6873-4, 41262-3, CBCA, 4548-4 #### [facility] ([id number]) [address] [place] [address] 38950 #### HA1C #### [facility] ([id number]) [address] [facility], [address] [place] [address] Basophils/100 WBC (Bld) 1.0 % Normal P [facility] Comment on above: Performed By: #### P INR, 86389-3, CMP, 23364-7, 6873-4, 11897-8, CBCA, 4548-4 #### [facility] ([id number]) [address] [place] [address] 88273 #### HA1C #### [facility] ([id number]) [address] [facility], [address] [place] [address] Eosinophils (Bld) [#/Vol] 0.1 10*3/uL Normal 0.0-0.4 [facility] Comment on above: Performed By: #### P INR, 00946-4, CMP, 30051-3, 6873-4, 03874-6, CBCA, 4548-4 #### [facility] ([id number]) [address] [place] [address] 15082 #### HA1C #### [facility] ([id number]) [address] [facility], [address] [address] Eosinophils/100 WBC (Bld) 1.2 % Normal [facility] Comment on above: Performed By: #### P INR, 51657-9, CMP, 28834-2, 6873-4, 41439-8, CBCA, 4548-4 #### [facility] ([id number]) [address] [place] [address] 72168 #### HA1C #### [facility] ([id number]) [address] [place] [address], [facility] [address] [place] [address] Erythrocyte distribution width (RBC) [Ratio] 13.4 % Normal 11.5-15.0 [facility] Comment on above: Performed By: #### P INR, 33613-1, CMP, 04473-0, 6873-4, 40670-3, CBCA, 4548-4 #### [facility] ([id number]) [address] [place] [address] 74131 #### HA1C #### [facility] ([id number]) [address], [address] [place] [address] Hematocrit (Bld) [Volume fraction] 46.5 % Normal 39-49 [facility] Comment on above: Performed By: #### P INR, 46795-0, CMP, 08081-5, 6873-4, 78740-5, CBCA, 4548-4 #### [facility] ([id number]) [address] [place] [address] 01892 #### HA1C #### [facility] ([id number]) [address], [address] [place] [address] Hemoglobin (Bld) [Mass/Vol] 16.0 g/dL Normal 13.0-17.0 [facility] Comment on above: Performed By: #### P INR, 07973-4, CMP, 42965-2, 6873-4, 22511-7, CBCA, 4548-4 #### [facility] ([id number]) [address] [place] [address] 79376 #### HA1C #### [facility] ([id number]) [address], [address] [place] [address] Lymphocytes (Bld) [#/Vol] 1.4 10*3/uL Normal 1.0-3.5 [facility] Comment on above: Performed By: #### P INR, 82897-3, CMP, 07097-4, 6873-4, 84480-7, CBCA, 4548-4 #### [facility] ([id number]) [address] [place] [address] 45355 #### HA1C #### [facility] ([id number]) [address], [address] [place] [address] Lymphocytes/100 WBC (Bld) 31.7 % Normal [facility] Comment on above: Performed By: #### P INR, 30226-5, CMP, 83526-1, 6873-4, 94252-0, CBCA, 4548-4 #### [facility] ([id number]) [address] [place] [address] 90315 #### HA1C #### [facility] ([id number]) [address], [address] [place] [address] MCH (RBC) [Entitic mass] 29.6 pg Normal 27-34 [facility] Comment on above: Performed By: #### P INR, 79944-1, CMP, 04582-8, 6873-4, 49504-5, CBCA, 4548-4 #### [facility] ([id number]) [address] [place] [address] 86852 #### HA1C #### [facility] ([id number]) [address], [address] [place] [address] MCHC (RBC) [Mass/Vol] 34.4 g/dL Normal 32-36 [facility] Comment on above: Performed By: #### P INR, 61304-9, CMP, 47648-7, 6873-4, 65867-2, CBCA, 4548-4 #### [facility] ([id number]) [address] [place] [address] 79790 #### HA1C #### [facility] ([id number]) [address], [address] [place] [address] MCV (RBC) [Entitic vol] 86 fL Normal 80-100 [facility] Comment on above: Performed By: #### P INR, 18259-4, CMP, 88130-7, 6873-4, 29775-8, CBCA, 4548-4 #### [facility] ([id number]) [address] [place] [address] 11936 #### HA1C #### [facility] ([id number]) [address], [address] [place] [address] Monocytes (Bld) [#/Vol] 0.3 10*3/uL Normal 0-0.9 [facility] Comment on above: Performed By: #### P INR, 03597-2, CMP, 50939-4, 6873-4, 44846-3, CBCA, 4548-4 #### [facility] ([id number]) [address] [place] [address] 85364 #### HA1C #### [facility] ([id number]) [address], [address] [place] [address] Monocytes/100 WBC (Bld) 7.3 % Normal [facility] Comment on above: Performed By: #### P INR, 67110-4, CMP, 53285-4, 6873-4, 31322-1, CBCA, 4548-4 #### [facility] ([id number]) [address] [place] [address] 35300 #### HA1C #### [facility] ([id number]) [address], [address] [place] [address] Neutrophils/100 WBC (Bld) 58.8 % Normal [facility] Comment on above: Performed By: #### P INR, 44605-4, CMP, 68347-3, 6873-4, 79410-6, CBCA, 4548-4 #### [facility] ([id number]) [address] [place] [address] 56408 #### HA1C #### [facility] ([id number]) [address], [address] [place] [address] Platelet mean volume (Bld) [Entitic vol] 8.0 fL Normal 7-12 [facility] Comment on above: Performed By: #### P INR, 96554-5, CMP, 05514-8, 6873-4, 19690-7, CBCA, 4548-4 #### [facility] ([id number]) [address] [place] [address] 14424 #### HA1C #### [facility] ([id number]) [address], [address] [place] [address] Platelets (Bld) [#/Vol] 219 10*3/uL Normal 150-450 [facility] Comment on above: Performed By: #### P INR, 45222-7, CMP, 67880-0, 6873-4, 18208-2, CBCA, 4548-4 #### [facility] ([id number]) [address] [place] [address] 70564 #### HA1C #### [facility] ([id number]) [address] [facility], [address] [place] [address] RBC COUNT 5.41 X10E12/L Normal 4.10-5.70 [facility] Comment on above: Performed By: #### P INR, 79384-5, CMP, 54324-9, 6873-4, 06376-9, CBCA, 4548-4 #### [facility] ([id number]) [address] [place] [address] 99673 #### HA1C #### [facility] ([id number]) [address] [facility], [address] [place] [address] WBC (Bld) [#/Vol] 4.3 10*3/uL Normal 4.0-11.0 [facility] Comment on above: Performed By: #### P INR, 41890-7, CMP, 81674-3, 6873-4, 02694-2, CBCA, 4548-4 #### [facility] ([id number]) [address] [place] [address] 10398 #### HA1C #### [facility] ([id number]) [address], [address] [place] [address] [address] [facility] 10-26-2023 Albumin [Mass/Vol] 4.3 g/dL Normal 3.2-5.3 [facility] Comment on above: Performed By: #### P INR, 99438-0, CMP, 70054-0, 6873-4, 65528-0, CBCA, 4548-4 #### [facility] ([id number]) [address] [place] [address] 32756 #### HA1C #### [facility] ([id number]) [address], [address] [place] [address] ALP [Catalytic activity/Vol] 73 U/L Normal 39-130 [facility] Comment on above: Performed By: #### P INR, 46601-7, CMP, 88722-6, 6873-4, 57164-6, CBCA, 4548-4 #### [facility] ([id number]) [address] [place] [address] 33065 #### HA1C #### [facility] ([id number]) [address], [address] [place] [address] ALT [Catalytic activity/Vol] 25 U/L Normal 0-40 [facility] Comment on above: Performed By: #### P INR, 03632-9, CMP, 36285-6, 6873-4, 72243-5, CBCA, 4548-4 #### [facility] ([id number]) [address] [place] [address] 33337 #### HA1C #### [facility] ([id number]) [address], [address] [place] [address] Anion gap [Moles/Vol] 10 mmol/L Normal 5-15 [facility] Comment on above: Performed By: #### P INR, 76784-0, CMP, 96191-4, 6873-4, 66296-0, CBCA, 4548-4 #### [facility] ([id number]) [address] [place] [address] 81673 #### HA1C #### [facility] ([id number]) [address], [address] [place] [address] AST [Catalytic activity/Vol] 19 U/L Normal 0-41 [facility] Comment on above: Performed By: #### P INR, 77050-5, CMP, 66157-9, 6873-4, 14222-0, CBCA, 4548-4 #### [facility] ([id number]) [address] [place] [address] 72601 #### HA1C #### [facility] ([id number]) [address] [facility], [address] [place] [address] Bilirubin [Mass/Vol] 0.8 mg/dL Normal 0.3-1.2 [place] Comment on above: Performed By: #### P INR, 75792-4, CMP, 98801-3, 6873-4, 23323-8, CBCA, 4548-4 #### [facility] ([id number]) [address] [place] [address] 58565 #### HA1C #### [facility] ([id number]) [address], [address] [place] [address] Calcium [Mass/Vol] 9.3 mg/dL Normal 8.5-10.5 [facility] Comment on above: Performed By: #### P INR, 87434-1, CMP, 95620-4, 6873-4, 95206-9, CBCA, 4548-4 #### [facility] ([id number]) [address] [place] [address] 52820 #### HA1C #### [facility] ([id number]) [address], [address] [place] [address] Chloride [Moles/Vol] 94 mmol/L Low 98-109 [place] Comment on above: Performed By: #### P INR, 86711-9, CMP, 02786-7, 6873-4, 96437-1, CBCA, 4548-4 #### [facility] ([id number]) [address] [place] [address] 52597 #### HA1C #### [facility] ([id number]) [address] [facility], [address] [place] [address] CO2 [Moles/Vol] 26 mmol/L Normal 22-32 [facility] Comment on above: Performed By: #### P INR, 59539-0, CMP, 27728-1, 6873-4, 26166-2, CBCA, 4548-4 #### [facility] ([id number]) [address] [place] [address] 24782 #### HA1C #### [facility] ([id number]) [address] [place] [address] Creatinine [Mass/Vol] 1.06 mg/dL Normal 0.70-1.20 [facility] Comment on above: Result Comment: METH OD TRACEABLE TO IDMS STANDARD Performed By: #### P INR, 30868-0, CMP, 95458-0, 6873-4, 91299-6, CBCA, 4548-4 #### [facility] ([id number]) [address] [place] [address] 36929 #### HA1C #### [facility] ([id number]) [address] [place] [address] GFR/1.73 sq M.predicted among non-blacks MDRD (S/P/Bld) [Vol rate/Area] 75 mL/min/{1.73_m2} Normal >59 [facility] Comment on above: Result Comment: Reported eGFR is based on the CKD-EPI 2020 equation that does not use a race coefficient. Performed By: #### P INR, 91818-8, CMP, 66192-8, 6873-4, 06853-1, CBCA, 4548-4 #### [facility] ([id number]) [address] [place] [address] #### HA1C #### [facility] ([id number]) [address] [facility], [address] [place] [address] Glucose [Mass/Vol] 453 mg/dL Critically high 65-99 [facility] Comment on above: Performed By: #### P INR, 81873-7, CMP, 72589-8, 6873-4, 20999-2, CBCA, 4548-4 #### [facility] ([id number]) [address] [place] [address] #### HA1C #### [facility] ([id number]) [address], [address] [place] [address] Potassium [Moles/Vol] 4.5 mmol/L Normal 3.5-5.0 [facility] Comment on above: Performed By: #### P INR, 08042-7, CMP, 23869-4, 6873-4, 47236-0, CBCA, 4548-4 #### [facility] ([id number]) [address] [place] [address] 00848 #### HA1C #### [facility] ([id number]) [address] [facility], [address] [place] [address] Protein [Mass/Vol] 7.2 g/dL Normal 6.0-8.0 [facility] Comment on above: Performed By: #### P INR, 96165-2, CMP, 11174-6, 6873-4, 45318-3, CBCA, 4548-4 #### [facility] ([id number]) [address] [place] [address] 41635 #### HA1C #### [facility] ([id number]) [address], [address] [place] [address] Sodium [Moles/Vol] 130 mmol/L Low 134-146 [facility] Comment on above: Performed By: #### P INR, 61289-0, CMP, 41271-6, 6873-4, 39379-4, CBCA, 4548-4 #### [facility] ([id number]) [address] [place] [address] 43686 #### HA1C #### [facility] ([id number]) [address], [address] [place] [address] Urea nitrogen [Mass/Vol] 29 mg/dL High 5-27 [facility] Comment on above: Performed By: #### P INR, 69788-1, CMP, 91279-5, 6873-4, 38556-8, CBCA, 4548-4 #### [facility] ([id number]) [address] [place] [address] 35579 #### HA1C #### [facility] ([id number]) [address], [address] [place] [address] CT BRAIN WO CONTon 3 CT BRAIN [...] Denney MD on 10/26/2023 6:42 PM Normal [facility] DRUG SCREEN, URINEon 023 AMPHETAMINE/METHAMP Negative Normal NEG [facility] Comment on above: Result Comment: AMPH /METH screening cut off = 1000 ng/mL Performed By: #### P INR, 19952-0, CMP, 56600-3, 6873-4, 67804-3, CBCA, 4548-4 #### [facility] ([id number]) [address] [place] [address] #### HA1C #### [facility] ([id number]) [address], [address] [place] [address] BARBITURATES Negative Normal NEG [facility] Comment on above: Result Comment: Elsie iturates screening cut off value = 200 ng/mL Performed By: #### P INR, 61688-6, CMP, 44232-4, 6873-4, 93274-4, CBCA, 4548-4 #### [facility] ([id number]) [address] [place] [address] 34668 #### HA1C #### [facility] ([id number]) [address], [address] [place] [address] BENZODIAZEPINES Negative Normal NEG [facility] Comment on above: Result Comment: James odiazepines screening cut off value = 200 ng/mL Performed By: #### P INR, 13133-3, CMP, 54226-4, 6873-4, 86757-7, CBCA, 4548-4 #### [facility] ([id number]) [address] [place] [address] 31494 #### HA1C #### [facility] ([id number]) [address] [facility] [address], [address] [place] [address] CANNABINOIDS Negative Normal NEG [facility] Comment on above: Result Comment: Shawn abinoids/THC screening cut off value = 50 ng/mL Performed By: #### P INR, 27950-8, CMP, 92091-7, 6873-4, 51303-6, CBCA, 4548-4 #### [facility] ([id number]) [address] [place] [address] 90[address] #### HA1C #### [facility] ([id number]) [address], [address] [place] [address] COCAINE METABOLITE Negative Normal NEG [facility] Comment on above: Result Comment: Coca ine screening cut off value = 300 ng/mL Performed By: #### P INR, 25184-7, CMP, 10265-2, 6873-4, 34326-4, CBCA, 4548-4 #### [facility] ([id number]) [address] [place] [address] 78433 #### HA1C #### [facility] ([id number]) [address], [address] [place] [address] ECSTASY Negative Normal NEG [facility] Comment on above: Result Comment: Ecst asy screening cut off value = 500 ng/mL This report is intended for use in clinical monitoring or management of patients. Performed By: #### P INR, 35824-2, CMP, 33829-8, 6873-4, 29349-4, CBCA, 4548-4 #### [facility] ([id number]) [address] [place] [address] 69016 #### HA1C #### [facility] ([id number]) [address] [facility] [address], [address] [place] [address] METHADONE Negative Normal NEG [facility] Comment on above: Result Comment: Meth adone screening cut off value = 300 ng/mL. Performed By: #### P INR, 03336-6, CMP, 70351-4, 6873-4, 48208-8, CBCA, 4548-4 #### [facility] ([id number]) [address] [place] [address] 83518 #### HA1C #### [facility] ([id number]) [address] [facility] [address], [address] [place] [address] OPIATES Negative Normal NEG [facility] Comment on above: Result Comment: Opia yanira screening cut off value = 300 ng/mL NOTE: This test is used for the detection of codeine, hydrocodone (>1000 ng/mL), morphine and hydromorphone (>900 ng/mL) in urine. Performed By: #### P INR, 64534-2, CMP, 46445-2, 6873-4, 70010-1, CBCA, 4548-4 #### [facility] ([id number]) [address] [place] [address] 41415 #### HA1C #### [facility] ([id number]) [address] [facility], [address] [place] [address] OXYCODONE Negative Normal [facility] Comment on above: Result Comment: Oxyc odone screening cut off value = 300 ng/mL NOTE: This test is used for the detection of oxycodone and oxymorphone in urine. Performed By: #### P INR, 40304-1, CMP, 58692-0, 6873-4, 30782-4, CBCA, 4548-4 #### [facility] ([id number]) [address] [place] [address] 33635 #### HA1C #### [facility] ([id number]) [address], [address] [place] [address] PHENCYCLIDINE Negative Normal NEG [facility] Comment on above: Result Comment: Phen cyclidine screening cut off value = 25 ng/mL Performed By: #### P INR, 69799-5, CMP, 42769-8, 6873-4, 91239-3, CBCA, 4548-4 #### [facility] ([id number]) [address] [place] [address] 19115 #### HA1C #### [facility] ([id number]) [address], [address] [place] [address] Glucose Glucometer (BldC) [M ass/Vol]on 10-26-2023 Glucose [Mass/Vol] 286 mg/dL High 65-99 [facility] Glucose [Mass/Vol] 385 mg/dL High 65-99 [facility] HA1C CONFIRMATION - NO CHARG Ian 10-26-2023 HbA1c (Bld) [Mass fraction] 15.3 % High <=5.6 [facility] Comment on above: Result Comment: NOTE INTERPRETIVE INFORMATION: Hemoglobin A1c HbA1c values of 5.7-6.4 percent indicate an increased risk for developing diabetes mellitus. HbA1c values greater than or equal to 6.5 percent are diagnostic of diabetes mellitus. For diagnosis of diabetes in individuals without unequivocal hyperglycemia, results should be confirmed by repeat testing. Performed By: #### P INR, 95628-3, CMP, 92541-7, 6873-4, 68116-0, CBCA, 4548-4 #### [facility] ([id number]) [address] [place] [address] 66477 #### HA1C #### [facility] ([id number]) [address], [address] [place] [address] HGB A1C (GLYCO-HGB)on 2022 AVERAGE GLUCOSE >398 Normal [facility] Comment on above: Performed By: #### P INR, 69963-1, CMP, 74779-3, 6873-4, 50513-5, CBCA, 4548-4 #### [facility] ([id number]) [address] [place] [address] 19384 #### HA1C #### [facility] ([id number]) [address] [facility] [address], [address] [place] [address] HbA1c (Bld) [Mass fraction] % High 4.4-5.6 [facility] Comment on above: Result Comment: NOTE ADA Guidelines Result HgbA1c Normal : less than 5.7 % Prediabetes : 5.7 % to 6.4 % Diabetes : > 6.4 % Use with caution in patients with abnormal hemoglobin variants as the half-life of red blood cells and in vivo glycation rates are affected. Performed By: #### P INR, 22911-9, CMP, 57142-5, 6873-4, 54845-3, CBCA, 4548-4 #### [facility] ([id number]) [address] [place] [address] 39443 #### HA1C #### [facility] ([id number]) [address], [address] [place] [address] HbA1c (Bld) [Mass fraction]o n 10-26-2023 Glucose [Mass/Vol] 392 mg/dL Normal [facility] Comment on above: Result Comment: NOTE Performed By: [employer] [address] [place] [address] Company Truck Driver: Aramis Taylor MD, PhD CLIA Number: [id number] Performed By: #### P INR, 71577-2, CMP, 24935-2, 6873-4, 52156-6, CBCA, 4548-4 #### [facility] ([id number]) [address] [place] [address] 95189 #### HA1C #### [facility] ([id number]) [address] [facility] [address], [address] [place] [address] MAGNESIUMon 10-26-2023 Magnesium [Mass/Vol] 1.6 mg/dL Low 1.8-2.6 [place] Comment on above: Performed By: #### P INR, 94492-2, CMP, 12423-1, 6873-4, 70776-7, CBCA, 4548-4 #### [facility] ([id number]) [address] [place] [address] 54324 #### HA1C #### [facility] ([id number]) [address] [address], [address] [place] [address] PROTIME AND INRon 10-26-2023 INR Coag (PPP) [Relative time] 1.0 {INR} Normal 0.8-1.1 [facility] Comment on above: Performed By: #### P INR, 46606-9, CMP, 14083-3, 6873-4, 59735-2, CBCA, 4548-4 #### [facility] ([id number]) [address] [place] [address] 13678 #### HA1C #### [facility] ([id number]) [address], [address] [place] [address] PT Coag (PPP) [Time] 11.4 s Normal 9.8-13.2 [place] Comment on above: Result Comment: NEW REFERENCE RANGE Performed By: #### P INR, 47134-0, CMP, 63230-2, 6873-4, 82862-8, CBCA, 4548-4 #### [facility] ([id number]) [address] [place] [address] 47621 #### HA1C #### [facility] ([id number]) [facility] [facility], [address] [place] [address] TROPONIN Ion 10-26-2023 Troponin I.cardiac [Mass/Vol] 0.01 ng/mL Normal 0.00-0.04 [facility] Comment on above: Performed By: #### P INR, 52745-7, CMP, 98535-7, 6873-4, 12109-1, CBCA, 4548-4 #### [facility] ([id number]) [address] [place] [address] 53211 #### HA1C #### [facility] ([id number]) [address] [place] [address], [address] [place] [address] URN MACROSCOPIC NURon 2022 BILIRUBIN ALLYN Negative Normal NEG [facility] Comment on above: Performed By: #### P INR, 05971-5, CMP, 49164-4, 6873-4, 90020-0, CBCA, 4548-4 #### [facility] ([id number]) [address] [place] [address] 91161 #### HA1C #### [facility] ([id number]) [address] [place] [address], [address] [place] [address] BLOOD/HGB ALLYN Trace Abnormal NEG [facility] Comment on above: Performed By: #### P INR, 83741-0, CMP, 14587-4, 6873-4, 62395-8, CBCA, 4548-4 #### [facility] ([id number]) [address] [place] [address] 59758 #### HA1C #### [facility] ([id number]) [address] [place] [address], [address] [place] [address] GLUCOSE ALLYN >=1000 Abnormal NEG [facility] Comment on above: Performed By: #### P INR, 35129-5, CMP, 49089-8, 6873-4, 41703-3, CBCA, 4548-4 #### [facility] ([id number]) [address] [place] [address] 44174 #### HA1C #### [facility] ([id number]) [address], [address] [place] [address] KETONES ALLYN 40 mg/dL Abnormal NEG [facility] Comment on above: Performed By: #### P INR, 62615-2, CMP, 71822-8, 6873-4, 06727-6, CBCA, 4548-4 #### [facility] ([id number]) [address] [place] [address] 22181 #### HA1C #### [facility] ([id number]) [address], [address] [place] [address] LEUKOCYTE ESTERASE ALLYN Negative Normal NEG [facility] Comment on above: Performed By: #### P INR, 96814-6, CMP, 69566-9, 6873-4, 41372-7, CBCA, 4548-4 #### [facility] ([id number]) [address] [place] [address] 94594 #### HA1C #### [facility] ([id number]) [address], [address] [place] [address] NITRITE ALLYN Negative Normal NEG [facility] Comment on above: Performed By: #### P INR, 93277-3, CMP, 19941-9, 6873-4, 58937-3, CBCA, 4548-4 #### [facility] ([id number]) [address] [place] [address] 05110 #### HA1C #### [facility] ([id number]) [address], [address] [place] [address] PH ALLYN 5.5 Normal 5.0-8.5 [facility] Comment on above: Performed By: #### P INR, 78820-2, CMP, 71739-0, 6873-4, 65392-1, CBCA, 4548-4 #### [facility] ([id number]) [address] [place] [address] 50962 #### HA1C #### [facility] ([id number]) [address] [place] [address], [address] [place] [address] PROTEIN ALLYN Negative Normal NEG [facility] Comment on above: Performed By: #### P INR, 20377-0, CMP, 00568-8, 6873-4, 82524-6, CBCA, 4548-4 #### [facility] ([id number]) [address] [place] [address] 57670 #### HA1C #### [facility] ([id number]) [address] [place] [address], [address] [place] [address] SPECIFIC GRAVITY ALLYN 1.010 Normal 1.003-1.035 [facility] Comment on above: Performed By: #### P INR, 57424-8, CMP, 38502-3, 6873-4, 66099-3, CBCA, 4548-4 #### [facility] ([id number]) [address] [place] [address] 32436 #### HA1C #### [facility] ([id number]) [address] [place] [address], [address] [place] [address] UROBILINOGEN ALLYN 0.2 eu/dL Normal <1.1 [facility] Comment on above: Performed By: #### P INR, 99423-0, CMP, 57619-3, 6873-4, 89181-8, CBCA, 4548-4 #### [facility] ([id number]) [address] [place] [address] 43439 #### HA1C #### [facility] ([id number]) [address] [place] [address], [address] [place] [address] VENOUS BLOOD GASon 3 MICHELLE'S TEST Normal [facility] Comment on above: Performed By: #### V BG #### [facility] ([id number]) [address] [place] [address] 79491 Base excess Calc (Bld) [Moles/Vol] 0.0 mmol/L Normal 0.0-2.0 [facility] Comment on above: Performed By: #### V BG #### [facility] ([id number]) [address] [place] [address] 59148 Body temperature 98.6 [degF] Normal 37.0 [facility] Comment on above: Performed By: #### V BG #### [facility] ([id number]) [address] [place] [address] 80244 HCO3 (Bld) [Moles/Vol] 25.3 mmol/L High 20.0-24.0 [facility] Comment on above: Performed By: #### V BG #### [facility] ([id number]) [address] [place] [address] 86528 Oxygen saturation in Blood 73.0 % Low >80.0 [facility] Comment on above: Performed By: #### V BG #### [facility] ([id number]) [address] [place] [address] 64566 OXYGEN SOURCE [employer] Normal [facility] Comment on above: Performed By: #### V BG #### [facility] ([id number]) [address] [place] [address] 69683 PCO2, VENOUS 41.3 MMHG Normal 35-50 [facility] Comment on above: Performed By: #### V BG #### [facility] ([id number]) [address] [place] [address] 82788 PH, VENOUS 7.396 Normal 7.320-7.420 [facility] Comment on above: Performed By: #### V BG #### [facility] ([id number]) [address] [place] [address] 81886 PO2, VENOUS 39 MMHG Normal 30-50 [facility] Comment on above: Performed By: #### V BG #### [facility] ([id number]) [address] [place] [address] 55522 SAMPLE SITE N/A Normal [facility] Comment on above: Performed By: #### V BG #### [facility] ([id number]) [address] [place] [address] 58940 SAMPLE TYPE VENOUS Normal [facility] Comment on above: Performed By: #### V BG #### [facility] ([id number]) [address] [place] [address] 71779 XR CHEST 1 VWon 10-26-2023 XR CHEST [...] Keyes MD on 10/26/2023 6:36 PM Normal [facility] aPTT Coag (PPP) [Time]on aPTT Coag (Bld) [Time] 34 s Normal 26-37 [facility] Comment on above: Result Comment: NEW REFERENCE RANGE Performed By: #### P INR, 44923-8, CMP, 22575-2, 6873-4, 84412-2, CBCA, 4548-4 #### [facility] ([id number]) [address] [facility] [place] [address] #### HA1C #### [facility] ([id number]) [address] [facility], [address] [place] [address] Vital Signs Date Time Vital Sign Value Performing Clinician Facility 03-31-2024 10:20-0400 Body height 180.34 cm [facility] 03-31-2024 10:20-0400 Body mass index (BMI) [Ratio] 34.9 kg/m2 [facility] 03-31-2024 10:20-0400 Body weight 113.53 kg [facility] 03-31-2024 10:20-0400 Diastolic blood pressure 73 mm[Hg] [facility] 03-31-2024 10:20-0400 Heart rate 79 /min [facility] 03-31-2024 10:20-0400 Respiratory rate 16 /min [facility] 03-31-2024 10:20-0400 Systolic blood pressure 149 mm[Hg] [facility] 03-26-2024 10:56-0400 Body height 180.34 cm [facility] 03-26-2024 10:56-0400 Body mass index (BMI) [Ratio] 34.9 kg/m2 [facility] 03-26-2024 10:56-0400 Body weight 113.62 kg [facility] 03-26-2024 10:56-0400 Diastolic blood pressure 81 mm[Hg] [facility] 03-26-2024 10:56-0400 Heart rate 86 /min [facility] 03-26-2024 10:56-0400 Respiratory rate 20 /min [facility] 03-26-2024 10:56-0400 Systolic blood pressure 157 mm[Hg] [facility] 01-23-2024 10:33-0400 Body height 180.34 cm [facility] 01-23-2024 10:33-0400 Body mass index (BMI) [Ratio] 36.1 kg/m2 [facility] 01-23-2024 10:33-0400 Body weight 117.65 kg [facility] 01-23-2024 10:33-0400 Diastolic blood pressure 69 mm[Hg] [facility] 01-23-2024 10:33-0400 Heart rate 71 /min [facility] 01-23-2024 10:33-0400 Respiratory rate 20 /min [facility] 01-23-2024 10:33-0400 Systolic blood pressure 159 mm[Hg] [facility] 12-30-2023 10:35-0500 Body height 177.8 cm Malorie Yeboah MD Work Phone: [facility] 12-30-2023 10:35-0500 Body mass index (BMI) [Ratio] 35.01 kg/m2 Malorie Yeboah MD Work Phone: [facility] 12-30-2023 10:35-0500 Body weight 110.68 kg Malorie Yeboah MD Work Phone: [facility] 12-11-2023 11:41-0500 Body height 177.8 cm Alexis Rojas MD Work Phone: [facility] 12-11-2023 11:41-0500 Body mass index (BMI) [Ratio] 35.01 kg/m2 Alexis Rojas MD Work Phone: [facility] 12-11-2023 11:41-0500 Body weight 110.68 kg Alexis Rojas MD Work Phone: [facility] 12-11-2023 11:41-0500 Diastolic blood pressure 73 mm[Hg] Alexis Rojas MD Work Phone: [facility] 12-11-2023 11:41-0500 Heart rate 90 /min Alexis Rojas MD Work Phone: [facility] 12-11-2023 11:41-0500 Systolic blood pressure 126 mm[Hg] Alexis Rojas MD Work Phone: [facility] 11-26-2023 10:45-0500 Body height 180.34 cm Vinnie Garza Other [facility] 11-26-2023 10:45-0500 Body mass index (BMI) [Ratio] 35.31 kg/m2 Vinnie Ball Other [facility] [employer] Other 11-26-2023 10:45-0500 Body weight 114.85 kg Vinnie Ball Other [facility] [employer] Other 11-26-2023 10:45-0500 Body weight 114.84 kg [facility] 11-26-2023 10:45-0500 Diastolic blood pressure 80 mm[Hg] Vinnie Garza Other [facility] 11-26-2023 10:45-0500 Respiratory rate 16 /min Vinnie Garza Other [facility] [employer] Other 11-26-2023 10:45-0500 Systolic blood pressure 132 mm[Hg] Vinnie Garza Other [facility] Encounters Encounter Date Encounter Type Care Provider Facility Start: 03-31-2024 End: 03-31-2024 ambulatory [facility] Work Phone: Start: 03-31-2024 End: 03-31-2024 Patient encounter procedure [facility] Work Phone: Start: 03-29-[address] [facility] Start: 03-26-2024 End: 03-26-2024 ambulatory [facility] Work Phone: Start: 03-26-2024 End: 03-26-2024 Patient encounter procedure [facility] Work Phone: Start: 02-13-2024 End: 03-27-[address] [facility] Start: 02-12-2024 End: 02-12-2024 ambulatory MALORIE [facility] Start: 02-04-2024 End: 02-04-2024 ambulatory JASON RODRIGUEZ Not Available Start: 01-23-2024 End: 01-23-2024 ambulatory [facility] Work Phone: Start: 01-23-2024 End: 01-23-2024 Patient encounter procedure [facility] Physician [facility] Work Phone: Start: 12-30-2023 End: 12-30-2023 ambulatory MALORIE YEBOAH [facility] Start: 12-30-2023 End: 12-30-2023 Office outpatient new 30 minutes Malorie Yeboah MD Work Phone: [facility] Comment on above: Arthritis of right k nee (Primary Dx); Right knee pain, unspecified chronicity Start: 12-11-2023 End: 12-11-2023 ambulatory [facility] Start: 12-11-2023 End: 12-11-2023 Office outpatient visit 25 minutes Alexis Rojas MD Work Phone: [facility] Comment on above: Sequelae, post-strok e (Primary Dx); Cerebrovascular accident (CVA) due to thrombosis of precerebral artery ([facility]); Type 2 diabetes mellitus with hyperglycemia, with long-term current use of insulin ([facility]); Transient alteration of awareness; Mixed hyperlipidemia; Blurred vision; Gait instability Start: 12-01-2023 End: 12-01-2023 ambulatory Vinnie Garza Other [employer] Other Start: 12-01-2023 Telephone encounter Vinnie SUAZO [facility] Start: 11-26-2023 End: 11-26-2023 ambulatory Vinnie Greg Other [employer] Other Start: 11-26-2023 Office outpatient vi sit 25 minutes Vinnie Garza [facility] Start: 11-26-2023 Telephone encounter Vinnie SUAZO [facility] Start: 11-26-2023 End: 11-26-2023 Patient encounter procedure [facility]- Start: 11-17-2023 Telephone encounter Alysha Estevez [facility] Start: 11-05-2023 End: 11-05-2023 ambulatory VINNIE GARZA [facility] Start: 10-31-2023 Orders Only Alysha Gilbert RN [facility] Comment on above: Cerebrovascular acci dent (CVA) due to thrombosis of precerebral artery (CMS-HCC) (Primary Dx); Other cerebrovascular vasospasm and vasoconstriction Start: 10-28-2023 End: 10-30-2023 ambulatory [facility] Start: 10-28-2023 End: 10-30-2023 ambulatory [facility] Start: 10-28-2023 End: 10-30-2023 ambulatory HAMMAD Ocasio [facility] Start: 10-26-2023 End: 10-30-2023 Emergency department patient visit [facility] Start: 10-26-2023 End: 10-29-2023 Evaluation and management of inpatient [facility] Start: 05-09-[address] IVNNIE Mcgraw ty:H1 Start: 11-27-[address] VINNIE Mcgraw ty:H1 Procedures Date Procedure Procedure Detail Performing Clinician Start: 02-12-2024 Follow-up visit Follow-up MALORIE YEBOAH Start: 12-11-2023 Adult depression screening assessment Alexis Rojas MD Work Phone: Start: 05-02-2016 Microalbumin [Mass/volume] in Urine by Test strip Alysha Gilbert RN History of operative procedure on knee History of arthroplasty of left knee Plan of Treatment Date Care Activity Detail Author Start: 12-29-2024 Adult BMI Screening Adult BMI Screen ing [facility] Start: 12-29-2024 Tobacco Screening Tobacco Screening [facility] Start: 12-11-2024 Adult BMI Screening Adult BMI Screen ing [facility] Start: 12-11-2024 Depression Screening Depression Scre ening [facility] Start: 12-11-2024 Tobacco Screening Tobacco Screening [facility] Start: 10-29-2024 Adult BMI Screening Adult BMI Screen ing [facility] Start: 10-26-2024 Tobacco Screening Tobacco Screening [facility] Start: 03-11-2024 End: 03-11-2024 Patient encounter procedure 03/11/2024 3:30 PM EDT Office Visit [facility] [address] [place] [phone] Alexis Rojas MD [address] [place] [address], [address] [place] [address] [facility] Start: 12-11-2023 End: 12-11-2023 Patient encounter procedure 12/11/2023 11:30 AM EST Office Visit [facility] [address] [place] [phone] Alexis Rojas MD [address] [place] [address], [address] [place] [phone] [facility] Start: 12-04-2023 End: 12-04-2023 Patient encounter procedure 12/04/2023 9:00 AM EST Office Visit [facility] [address] [place] [phone] Neo Easton MD [address] [place], [place] [phone] [facility] Start: 10-31-2023 End: 10-31-2024 Event Monitor (In Office) [facility] [employer] Work Phone: Comment on above: Expected: 10/31/2023 , Expires: 10/31/2024 Start: 06-27-2023 Influenza vaccination Influenza Vacc ine [facility] Start: 2018 Fall Risk Screening Fall Risk Screen ing [facility] Start: 05-02-2017 Urine screening for protein Urine Microalbumin [facility] Start: 2003 Administration of varicella zoster vaccine Zoster (Shingles) Vaccine (1 of 2) [facility] Start: 1972 DTaP,Tdap and Td Vaccines (1 - Tdap) DTaP,Tdap and Td Vaccines (1 - Tdap) [employer] Start: 1971 Adult BMI Follow Up Plan Adult BMI Follow Up Plan [facility] Start: 1971 Diabetic foot examination Diabetic Foot Exam [facility] Start: 1965 Depression Screening Depression Scre ening [employer] Start: 1955 Glaucoma screening [facility] Start: 1955 Medicare Annual Well ness Visit Medicare Annual Wellness Visit [employer] Start: 1955 Tobacco Counseling Tobacco Counselin g [employer] End: 12-29-2024 Large Joint Injection/Arthrocentesis - PA Large Joint Injection/Arthrocentesi s - PA Procedures Routine Right knee pain, unspecified chronicity Arthritis of right knee 1 Occurrences starting 12/30/2023 until 12/29/2024 [email or web address] Work Phone: Comment on above: 1 Occurrences starti ng 12/30/2023 until 12/29/2024 End: 12-29-2024 Nicotine screen, urine Nicotine screen, urine Lab Routine Arthritis of right knee 1 Occurrences starting 12/30/2023 until 12/29/2024 [employer] Comment on above: 1 Occurrences starti ng 12/30/2023 until 12/29/2024 [facility] Immunizations Immunization Date Immunization Notes Care Provider Fortino rouse 07-08-2018 influenza virus vaccine, split virus (incl. purified surface antigen) Vinnie Garza Other [employer] Other 07-08-2018 influenza virus vaccine, unspecified formulation [facility] Payers Date Payer Category Payer Medicare AETNA MEDICARE A ETNA MEDICARE PLAN (PPO) [id number] 2021-Present [phone] [address] [place] [address] [id number] 2021 Medicare [id number] 1961 Self-pay 1955 Unknown [id number] 2.16.840.1.609126.3.579.2.593 1953 Unknown [id number] 2.16.840.1.781189.3.579.2.593 1953 Unknown [id number] 2.16.840.1.735318.3.579.2.1286 1953 Unknown [id number] 2.16.840.1.109178.3.579.2.1259 1953 Unknown [id number] 2.16.840.1.517228.3.579.2.1286 1953 Unknown [id number] 2.16.840.1.780954.3.579.2.1286 1953 Unknown [id number] 2.16.840.1.203454.3.579.2.1286 1953 Unknown [id number] 2.16.840.1.670699.3.579.2.1286 1953 Unknown [id number] 2.16.840.1.951933.3.579.2.1286 1953 Unknown [id number] 2.16.840.1.721381.3.579.2.1286 1953 Unknown [id number] 2.16.840.1.864018.3.579.2.1286 1953 Unknown [id number] 2.16.840.1.696122.3.579.2.1286 1953 Unknown [id number] 2.16.840.1.131745.3.579.2.1286 1953 Unknown [id number] 2.16.840.1.740280.3.579.2.1286 1953 Unknown [id number] 2.16.840.1.860308.3.579.2.1286 1953 Unknown [id number] 2.16.840.1.054596.3.579.2.1286 1953 Unknown [id number] 2.16.840.1.074849.3.579.2.1286 1953 Unknown [id number] 2.16.840.1.184436.3.579.2.1286 Medicare [id number] 2.16.840.1.998064.19 Unknown [id number] 2.840.1.608973.19 Social History Date Type Detail Facility Start: 10-26-2023 Tobacco smoking stat [facility] Smokes tobacco daily [facility] History of tobacco use Cigarette Smoker P [facility] Start: 10-26-2023 Tobacco use and exposure Smoke less tobacco non-user [facility] Start: 10-26-2023 End: 12-30-2023 Alcohol intake Ex-drinker (finding) [facility] Start: 12-07-2020 End: 10-26-2023 History of Social function [facility] Start: 12-07-2020 End: 10-26-2023 Tobacco use panel [facility] Housing Instability Unknown [facility] Start: 1955 Sex Assigned At Not on file P [facility] Start: 1955 Sex Assigned At Male F [facility] Goals Date Patient Goal Desired Activity /State [...] note were not included. Cesar Rivera 1955 [id number] Last encounter with me: Visit date not [...] Medical History: Diagnosis Date Arthritis Cataract Diabetes ([facility]) Diabetes mellitus type 2, controlled ([facility]) Fractures Past Surgical History: Procedure Laterality Date [...] of the aforementioned history prepared by the [place] practice provider, and I personally performed the [...] hip xrays.. Malorie Yeboah MD Adult Reconstruction [facility] Physicians [facility] [address] [place] [address], [address] W: [phone] F: [phone] documented in this encounter [facility] 12-11-2023 History of Present illness Narrative Reason [...] Medical History: Diagnosis Date Arthritis Cataract Diabetes ([facility]) Diabetes mellitus type 2, controlled ([facility]) Fractures Past Surgical History Past Surgical History: [...] hyperglycemia, with long-term current use of insulin ([facility]) Cerebrovascular accident (CVA) due to thrombosis ([facility]) Mixed hyperlipidemia Sequelae, post-stroke Gait instability Status [...] in 3 months. 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 Sincerely, Your Patient Services Outbound Team [facility]* Diagnosis Cerebrovascular accident (CVA) due to thrombosis of precerebral artery ([facility])- Primary Other cerebrovascular vasospasm and vasoconstriction documented in this encounter [facility]* Diagnosis Sequelae, post-stroke- Primary Cerebrovascular accident (CVA) due to thrombosis of precerebral artery ([facility]) Type 2 diabetes mellitus with hyperglycemia, with long-term current use of insulin ([facility]) Transient alteration of awareness Mixed hyperlipidemia Blurred vision Other specified visual disturbances Gait instability Abnormality of gait documented in this encounter [facility]* Diagnosis Arthritis of right knee- Primary Right knee pain, unspecified chronicity Right knee pain, unspecified chronicity documented in this encounter [facility]* Diagnosis Onset Date Resolution Status Cerebral atherosclerosis acu te Cigarette nicotine dependence without complication acute Hypercholesterolemia acute Primary hypertension acute Type 2 diabetes mellitus with hyperglycemia [facility] Work Phone: Evaluation note* Diagnosis Onset Date Resolution Status Cerebral atherosclerosis acu te Cigarette nicotine dependence without complication acute Hypercholesterolemia acute Primary hypertension acute Primary osteoarthritis of right knee acute Type 2 diabetes mellitus with hyperglycemia acute Cerebral atherosclerosis acu te Cigarette nicotine dependence without complication acute Hypercholesterolemia acute Primary hypertension acute Type 2 diabetes mellitus with hyperglycemia acute [facility] Work Phone: Evaluation note* Diagnosis Onset Date Resolution Status Cerebral atherosclerosis acu te Cigarette nicotine dependence without complication acute Hypercholesterolemia acute Primary hypertension acute Primary osteoarthritis of right knee acute Type 2 diabetes mellitus with hyperglycemia acute Abrasion, left knee, initial encounter acute Cerebral atherosclerosis acu te Contusion of left knee acute History of arthroplasty of left knee acute Type 2 diabetes mellitus with hyperglycemia acute Abrasion, left knee, subsequent encounter acute Cerebral atherosclerosis acu te Cigarette nicotine dependence without complication acute Contusion of left knee acute History of arthroplasty of left knee acute Hypercholesterolemia acute Primary hypertension acute Type 2 diabetes mellitus with hyperglycemia acute [facility] Work Phone: History general Narrative - Reported* Type Description Date Medical History Cerebral atherosclerosis Medical History Hypercholesterolemia Medical History Primary hypertension Medical History Cigarette nicotine dependence wi thout complication Surgical History Tonsillectomy Surgical History Right Shoulder Surgery Surgical History Left TKA 2010 Surgical History Right Knee Arthroscopy x2 Surgical History 2: cataracts Surgical History ORIF Right Wrist Hospitalization History see surgical history [employer] Other InstructionsNot on filedocumented in this encounter [employer] SystemInstructionsNot on filedocumented in this encounter [employer] SystemInstructionsNot on filedocumented in this encounter [employer]-transfection SystemReason for visit NarrativeDiabetic education/XR results [employer] Other Summary Purpose Family History Relationship Condition Age at Onset Recorded Date/T dinorah Not Specified Malignant neoplasm Unknown History of stroke Unknown Advance Directives Latest Code Status on File Code Status Date Activated Date Inactivated Comments Full Code 10/28/2023 8:46 AM 10/29/2023 3:57 PM Latest Code Status on File Code Status Date Activated Date Inactivated Comments Full Code 10/28/2023 8:46 AM 10/29/2023 3:57 PM Advance Directive Response Recorded Date/ Time Advance Directives No November 26, 2023 12:50pm Reason for Referral Specialty Diagnoses / Procedures Referred By Raquelac t Referred To Contact Diagnoses Cerebrovascular accident (CVA) due to thrombosis of precerebral artery (CMS-HCC) Other cerebrovascular vasospasm and vasoconstriction Procedures Event Monitor (In Office) Kong Gallegos, NANCY-RELEASE SPECIALIST [address] [place] [address] [address] [place], [place] [id number] Referral ID Status Reason Start Date Expiration Date V isits Requested Visits Authorized [id number] Pending Review 10/31/2023 10/30/2024 1 1 Specialty Diagnoses / Procedures Referred By Contac t Referred To Contact Rehabilitation Diagnoses Cerebrovascular accident (CVA) due to thrombosis of precerebral artery (CMS-HCC) Sequelae, post-stroke Gait instability Alexis Rojas MD [address] [facility], [address] [place] [address] Referral ID Status Reason Start Date Expiration Date Visits Requested Visits Authorized [id number] Pending Review Specialty Services Required 12/11/2023 12/10/2024 1 1 Specialty Diagnoses / Procedures Referred By Contac t Referred To Contact Rehabilitation Diagnoses Arthritis of right knee Malorie Yeboah MD [address] [place] [address] Referral ID Status Reason Start Date Expiration Date Visits Requested Visits Authorized [id number] Pending Review Specialty Services Required 12/30/2023 12/29/2024 1 1 Specialty Diagnoses / Procedures Referred By Contac t Referred To Contact Diagnoses Right knee pain, unspecified chronicity Arthritis of right knee Procedures Large Joint Injection/Arthrocentesis - PA Malorie Yeboah MD [address] [place] [address] [facility] [address] [place] [address] Referral ID Status Reason Start Date Expiration Date V isits Requested Visits Authorized [id number] Pending Review 12/30/2023 12/29/2024 1 1 Chief [...] 2 month follow up fell, leg pain week follow up Reason for Visit Cerebral atheroscler osis Cigarette nicotine dependence without complication Hypercholesterolemia Primary hypertension Primary osteoarthritis of right knee Type 2 diabetes mellitus with hyperglycemia Abrasion, left knee, initial encounter Cerebral atherosclerosis Contusion of left knee History of arthroplasty of left knee Type 2 diabetes mellitus with hyperglycemia Abrasion, left knee, subsequent encounter Cerebral atherosclerosis Cigarette nicotine dependence without complication Contusion of left knee History of arthroplasty of left knee Hypercholesterolemia Primary hypertension Type 2 diabetes mellitus with hyperglycemia Additional Source Comments (unrecognized sect ion and content) No Status Records FoundNo Status Records FoundNo Status Records FoundNo Status Records FoundNo Status Records Found INFORMATION SOURCE (unrecogn ized section and content) DATE CREATED AUTHOR 05/16/2022 [facility] DATE CREATED AUTHOR AUTHOR'S ORGANIZ ATION 11/02/2023 [facility] DATE CREATED AUTHOR AUTHOR'S ORGANIZ ATION 02/05/2024 [facility] DATE CREATED AUTHOR AUTHOR'S ORGANIZ ATION 02/13/2024 [facility] DATE CREATED AUTHOR AUTHOR'S ORGANIZ ATION 03/29/2024 [facility] Care Teams (unrecognized sec tion and content) [employer] Relationship Specialty Start Date End Date Vinnie Garza DO [address] [place] [address] PCP - General Internal Medicine 10/26/23 [employer] Relationship Specialty Start Date End Date Vinnie Garza DO [address] [place] [address] PCP - General Internal Medicine 10/26/23 [employer] Relationship Specialty Start Date End Date Vinnie Garza DO [address] [place], [place] [id number] PCP - General Internal Medicine 10/26/23 [employer] Relationship Specialty Start Date End Date Vinnie Garza DO [address] [place] [address] PCP - General Internal Medicine 10/26/23 Team Status: Active Member Role Status Dates Vinnie Garza , Primary Care Provider Active Team Status: Inactive Member Role Status Dates Vinnie Garza DO Attending Provider Active Sta rt: November 26, 2023 End: November 26, 2023 Team Status: Inactive Member Role Status Dates Vinnie Greg DO Primary Care Provide r, Attending Provider Active Start: January 23, 2024 End: January 23, 2024 Team Status: Inactive Member Role Status Dates Vinnie Garza , DO Primary Care Provide r, Attending Provider Active Start: March 26, 2024 End: March 26, 2024 Team Status: Inactive Member Role Status Dates Vinnie Garza , DO Primary Care Provide r, Attending Provider Active Start: March 31, 2024 End: March 31, 2024 REASON FOR VISIT (unrecogniz ed section [...] BE BASED ON THE PRIMARY CLINICAL RECORDS. [employer] provides no warranty or guarantee of the accuracy or completeness of information in this document.
--- NOTE | 2024-03-31 17:44 | PM.ORCN ---
History of Present Illness HPI Consult date: 04/21/24 Requesting physician: Poonam Krishna Chief complaint: LEFT KNEE CELLULITIS KNEE SWELLING Narrative: Patient is a 68-year-old male that presents to the ED after being referred by his PCP, Dr. Garza. Patient states that he sustained a fall onto his left knee on 03/21/2024 in the grocery store. Patient states that it immediately became swollen. He did have a knee replacement by Dr. Watts in 2010. Patient did have a wound below his knee that he states he has been putting antibiotics on and was also given p.o. antibiotics. The patient presented to the ED today after having increased swelling and pain with some redness of his lower leg. The patient denies fever or chills since his fall. [facility] Medical History (Updated 03/31/24 @ 18:12 by MARIBELL Hannon) History of CVA (cerebrovascular accident) ?Z86.73 - Personal history of transient ischemic attack (TIA), and cerebral infarction without residual deficits (ICD-10) DM2 (diabetes mellitus, type 2) ?E11.9 - Type 2 diabetes mellitus without complications (ICD-10) Osteoarthritis ?M19.90 - Unspecified osteoarthritis, unspecified site (ICD-10) HTN (hypertension) ?I10 - Essential (primary) hypertension (ICD-10) Hyperlipidemia ?E78.5 - Hyperlipidemia, unspecified (ICD-10) Surgical History (Updated 03/31/24 @ 17:36 by Keli Gastelum, SMOOTH) H/O repair of right rotator cuff ?Z98.890 - Other specified postprocedural states (ICD-10) History of total left knee replacement ?Z96.652 - Presence of left artificial knee joint (ICD-10) Family History (Updated 03/31/24 @ 17:37 by Keli Gastelum, SMOOTH) Sister Family history of cancer Mother Family history of cancer Grandmother Family history of stroke Social History (Updated 03/31/24 @ 17:41 by Keli Gastelum, SMOOTH) Within the past year, how often did you have a drink containing alcohol: never Score interpretation: A score less than 4 is consistent with normal alcohol consumption. Smoking status: Current every day smoker Non-prescribed substance use: denies use Meds Home Medications and Allergies Home Medications ?Medication ?Instructions ?Recorded ?Confirmed ?Type aspirin 81 mg tablet,delayed 81 mg PO .QD 03/31/24 03/31/24 History release atorvastatin 40 mg tablet 40 mg PO .QD 03/31/24 03/31/24 History flash glucose scanning reader 03/31/24 03/31/24 History (FreeStyle Kathie 2 [place]) flash glucose sensor (FreeStyle 03/31/24 03/31/24 History Kathie 2 Sensor kit) insulin aspart U-100 100 unit/mL 15 unit subcut TID 03/31/24 03/31/24 History (3 mL) subcutaneous pen (Novolog FlexPen U-100 Insulin aspart) insulin glargine 100 unit/mL (3 15 unit subcut .QHS 03/31/24 03/31/24 History mL) subcutaneous pen (Lantus Solostar U-100 Insulin) insulin syringe-needle U-100 1 mL 03/31/24 03/31/24 History 30 gauge x 7/16 losartan 25 mg tablet 25 mg PO .qd 03/31/24 03/31/24 History meloxicam 15 mg tablet 15 mg PO .qd 03/31/24 03/31/24 History mupirocin 2 % topical ointment 1 applic topical BID 03/31/24 03/31/24 History Allergies Allergy/AdvReac Type Severity Reaction Status Date / Time No Known Drug Allergies Allergy Verified 03/31/24 11:00 Exam Narrative Exam Narrative: On exam patient is in no distress and laying on the hospital bed. He is an age-appropriate 68-year-old male who is alert and oriented x 3. On inspection of the left knee there is a well healed midline surgical incision as well as ecchymosis in various stages of healing surrounding an infrapatellar healing ulcer that is 2x2cm. There is infrapatellar swelling that continues down the leg to the foot. There is cellulitis of the anterior lower leg present. R Knee ROM is limited in flexion to 115 degrees as compared contralaterally and there is full extension. There is tenderness to palpation of the infrapatellar swelling surrounding the ulcer, mostly indurated. The patient is neurovascularly intact distally. 2+ DP/ PT pulses palpated. Constitutional Vital Signs, click to edit/add: Last Vital Signs Temp 97.7 F 03/31/24 11:00 Pulse 88 06/05/24 12:57 Resp 16 03/31/24 12:57 BP 116/89 03/31/24 14:46 Pulse Ox 81 L 03/31/24 15:00 O2 Del Method Room Air 03/31/24 11:00 Results Labs Labs: Abnormal lab results 03/31/24 03/31/24 Range/Units 11:45 17:08 RBC 4.45 L (4.70-6.10) 10^6/uL Hgb 13.5 L (14.0-18.0) g/dL Hct 39.4 L (42.0-54.0) % MPV 8.9 L (9.5-13.5) fL AST 12 L (15-37) U/L POC Glucose 122 H (74-106) mg/dL H & H 03/31/24 Range/Units 11:45 Hgb 13.5 L (14.0-18.0) g/dL Hct 39.4 L (42.0-54.0) % All other labs normal. Assessment and Plan Assessment and Plan (1) Cellulitis: (2) DM2 (diabetes mellitus, type 2): (3) Osteoarthritis: (4) HTN (hypertension): (5) Hyperlipidemia: (6) Hematoma: Plan Patient appears to have a hematoma of the left knee with an ulcer. There also appears to be cellulitis of the lower leg that is being treated with antibiotics by the hospitalist. - WBC 5.2 - X-ray left knee and CT left lower extremity with contrast reviewed and shows a fluid collection anterior to the patellar tendon, no appreciable air within the fluid collection to suggest an abscess. - Ice and elevation for LLE. - No surgical indication at this time. Case discussed with my attending Dr Hsu. Thank you for the consult.
[2024-03-31] MEDS: LACTATED RINGER'S SOLUTION 1,000 ML 100 ML IV (18:24)
[2024-03-31] MEDS: ENOXAPARIN SODIUM 40 MG/0.4 ML SYRINGE SUBQ (21:59)
[2024-03-31] MEDS: KETOROLAC TROMETHAMINE 30 MG/ML VIAL IVP (22:11)
[2024-04-01] MEDS: VANCOMYCIN HCL 1,500 MG in 0.9 % SODIUM CHLORIDE 500 ML 250 MG IV ×2 (00:12→12:01)
[2024-04-01] MEDS: DIPHENHYDRAMINE HCL 25 MG CAPSULE PO (00:12)
[2024-04-01 01:24] LABS: Glucometer 64 mg/dL (74-106)
--- NOTE | 2024-04-01 01:33 | PC.NURSE ---
Patient's monitor was going off saying his blood sugar is low (69). Checked his sugar by finger stick and read 64. Nurse is aware, patient was given orange juice and crackers. Will recheck soon.
[2024-04-01 03:33] VITALS: BP 148/69; PULSE 60; TEMP 36.7; O2SAT 92
[2024-04-01 04:56] LABS: Basophils Percent Auto 0.9 % (0.2-2.0); Eosinophils Absolute Auto 0.2 10^3/uL (0.0-0.7); Eosinophils Percent Auto 4.4 % (0.9-7.0); Hematocrit 38.2 % (42.0-54.0); Hemoglobin 12.6 g/dL (14.0-18.0); Immature Granulocytes Abs Auto 0.01 10^3/uL (0.00-0.03); Immature Granulocytes Pct Auto 0.2 % (0.0-0.5); Lymphocytes Absolute Auto 1.6 10^3/uL (1.2-3.8); Mean Corpuscular Hemoglobin 29.6 pg (25.9-34.0); Mean Corpuscular Volume 89.9 fL (80.0-94.0); Mean Platelet Volume 9.2 fL (9.5-13.5); Monocytes Absolute Auto 0.4 10^3/uL (0.3-0.8); Monocytes Percent Auto 7.7 % (1.7-12.0); Neutrophils Absolute Auto 2.3 10^3/uL (1.4-6.5); Neutrophils Percent Auto 50.8 % (43.0-75.0); Platelet Count 210 10^3/uL (150-450); Red Blood Count 4.25 10^6/uL (4.70-6.10); Red Cell Distribution Width 13.6 % (11.0-15.0); White Blood Count 4.6 10^3/uL (4.0-11.0)
[2024-04-01 05:20] LABS: Alanine Aminotransferase 19 U/L (16-63); Albumin Globulin Ratio 1.2; Albumin Level 3.4 g/dL (3.4-5.0); Alkaline Phosphatase 73 U/L (46-116); Anion Gap 11.8; Aspartate Amino Transferase 12 U/L (15-37); BUN Creatinine Ratio 21.7; Bilirubin Total 0.5 mg/dL (0.2-1.0); Calcium 8.7 mg/dL (8.5-10.1); Carbon Dioxide 27.1 mmol/L (21.0-32.0); Chloride 105 mmol/L (98-107); Estimated GFR (African America >60 (>=60); Estimated GFR (Non-African Ame >60 (>=60); Globulin 2.8 g/dL; Glucose 105 mg/dL (74-106); Potassium 3.9 mmol/L (3.5-5.1); Sodium 140 mmol/L (136-145); Total Protein 6.2 g/dL (6.4-8.2)
[2024-04-01] MEDS: KETOROLAC TROMETHAMINE 30 MG/ML VIAL IVP ×2 (05:34→15:10)
[2024-04-01] MEDS: LACTATED RINGER'S SOLUTION 1,000 ML 100 ML IV (05:34)
--- OUTSIDE RECORDS SUMMARY | 2024-04-01 07:00 | XMS_ITS | CCD ---
Author Organization [facility] Care Team Providers Care Dock Guard Name Role Phone GREG, DR BUSH Primary [...] Primary Care Unavailable MALORIE YEBOAH Attending Unavailable MALROIE YEBOAH Referring Unavailable GREG, VINNIE Graham Primary [...] 10/29/2023 Active Blood-Glucose Meter,Continuous (Freestyle Kathie 3 [place]) misc (2 sources) Start: 03-01-2024 Blood-Glucose Meter,Continuous (Freestyle Kathie 3 [place]) misc Active 0 .Route 1 March 01, [...] March 26, 2024 12:00am FreeStyle Kathie 2 [place] - (4 sources) Start: 11-26-2023 FreeStyle Kathie 2 [place] - Use to test home BS transcutaneous [...] evening meal for 90 *Pick strength-form from [facility] for eRX* 07 Jun, 2021 Not-Taking/PRN NovoLIN [...] evening meal for 30 *Pick strength-form from [facility] for eRX* 15 Jul, 2020 Not-Taking/PRN pravastatin [...] sources) Long-term current use of insulin; 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 MANUALLY TRANSCRIBED RESULTS [facility] Radiology Study observation (narrative) [facility] BASIC METABOLIC PANLon 11-05 Anion gap [Moles/Vol] 11 mmol/L Normal 5-15 [facility] Comment on above: Performed By: #### P INR, 90809-7, CMP, 69441-7, 6873-4, 92599-3, CBCA, 4548-4 #### [facility] ([id number]) [address] [place] [address] 31614 #### HA1C #### [facility] ([id number]) [address], [address] [place] [address] Calcium [Mass/Vol] 8.8 mg/dL Normal 8.5-10.5 [facility] Comment on above: Performed By: #### P INR, 67677-6, CMP, 05863-8, 6873-4, 46736-9, CBCA, 4548-4 #### [facility] ([id number]) [address] [place] [address] 62137 #### HA1C #### [facility] ([id number]) [address], [address] [place] [address] Chloride [Moles/Vol] 96 mmol/L Low 98-109 [facility] Comment on above: Performed By: #### P INR, 60920-0, CMP, 14582-2, 6873-4, 35157-9, CBCA, 4548-4 #### [facility] ([id number]) [address] [place] [address] 81593 #### HA1C #### [facility] ([id number]) [address], [address] [place] [address] CO2 [Moles/Vol] 24 mmol/L Normal 22-32 [facility] Comment on above: Performed By: #### P INR, 60318-8, CMP, 23840-4, 6873-4, 78155-1, CBCA, 4548-4 #### [facility] ([id number]) [address] [place] [address] 88599 #### HA1C #### [facility] ([id number]) [address], [address] [place] [address] Creatinine [Mass/Vol] 0.75 mg/dL Normal 0.70-1.20 [facility] Comment on above: Result Comment: METH OD TRACEABLE TO IDMS STANDARD Performed By: #### P INR, 28528-2, CMP, 86024-7, 6873-4, 82947-3, CBCA, 4548-4 #### [facility] ([id number]) [address] [place] [address] 95626 #### HA1C #### [facility] ([id number]) [address], [address] [place] [address] eGFR (CKD-EPI) NON-RACE DEPENDENT >90 Normal >59 [facility] Comment on above: Result Comment: Reported eGFR is based on the CKD-EPI 2020 equation that does not use a race coefficient. Performed By: #### P INR, 64572-4, CMP, 78844-0, 6873-4, 25138-0, CBCA, 4548-4 #### [facility] ([id number]) [address] [place] [address] 40556 #### HA1C #### [facility] ([id number]) [address], [address] [place] [address] Glucose [Mass/Vol] 263 mg/dL High 65-99 [facility] Comment on above: Performed By: #### P INR, 95547-2, CMP, 15931-0, 6873-4, 73173-0, CBCA, 4548-4 #### [facility] ([id number]) [address] [place] [address] 04472 #### HA1C #### [facility] ([id number]) [address], [address] [place] [address] Potassium [Moles/Vol] 4.2 mmol/L Normal 3.5-5.0 [facility] Comment on above: Performed By: #### P INR, 68143-6, CMP, 83680-6, 6873-4, 53413-3, CBCA, 4548-4 #### [facility] ([id number]) [address] [place] [address] 32481 #### HA1C #### [facility] ([id number]) [address], [address] [place] [address] Sodium [Moles/Vol] 131 mmol/L Low 134-146 [facility] Comment on above: Performed By: #### P INR, 72764-0, CMP, 84060-8, 6873-4, 35445-6, CBCA, 4548-4 #### [facility] ([id number]) [address] [place] [address] 36831 #### HA1C #### [facility] ([id number]) [address], [address] [place] [address] Urea nitrogen [Mass/Vol] 21 mg/dL Normal 5-27 [facility] Comment on above: Performed By: #### P INR, 01541-3, CMP, 77977-7, 6873-4, 50358-2, CBCA, 4548-4 #### [facility] ([id number]) [address] [place] [address] 89185 #### HA1C #### [facility] ([id number]) [address], [address] [place] [address] CBC AND AUTO DIFFon 01-03-20 24 Erythrocyte distribution width (RBC) [Ratio] 13.8 % Normal 11.5-15.0 [facility] Comment on above: Performed By: #### P INR, 16489-4, CMP, 83593-6, 6873-4, 10899-2, CBCA, 4548-4 #### [facility] ([id number]) [address] [place] [address] 02086 #### HA1C #### [facility] ([id number]) [address], [address] [place] [address] Hematocrit (Bld) [Volume fraction] 46.7 % Normal 39-49 [facility] Comment on above: Performed By: #### P INR, 13482-3, CMP, 33006-8, 6873-4, 19697-5, CBCA, 4548-4 #### [facility] ([id number]) [address] [place] [address] 43308 #### HA1C #### [facility] ([id number]) [address], [address] [place] [address] Hemoglobin (Bld) [Mass/Vol] 16.0 g/dL Normal 13.0-17.0 [facility] Comment on above: Performed By: #### P INR, 16882-1, CMP, 75227-2, 6873-4, 94402-2, CBCA, 4548-4 #### [facility] ([id number]) [address] [place] [address] 64172 #### HA1C #### [facility] ([id number]) [address], [address] [place] [address] LYMPHOCYTE, ATYPICAL 8.8 % Normal [facility] Comment on above: Performed By: #### P INR, 10885-5, CMP, 05647-5, 6873-4, 01207-0, CBCA, 4548-4 #### [facility] ([id number]) [address] [place] [address] 42480 #### HA1C #### [facility] ([id number]) [address], [address] [place] [address] Lymphocytes (Bld) [#/Vol] 1.9 10*3/uL Normal 1.0-3.5 [facility] Comment on above: Performed By: #### P INR, 65009-0, CMP, 73416-7, 6873-4, 13475-6, CBCA, 4548-4 #### [facility] ([id number]) [address] [place] [address] 30821 #### HA1C #### [facility] ([id number]) [address], [address] [place] [address] Lymphocytes/100 WBC (Bld) 46.1 % Normal [facility] Comment on above: Performed By: #### P INR, 77684-1, CMP, 78614-7, 6873-4, 30418-0, CBCA, 4548-4 #### [facility] ([id number]) [address] [place] [address] 29082 #### HA1C #### [facility] ([id number]) [address], [address] [place] [address] MCH (RBC) [Entitic mass] 29.4 pg Normal 27-34 [facility] Comment on above: Performed By: #### P INR, 08688-5, CMP, 67745-9, 6873-4, 18423-7, CBCA, 4548-4 #### [facility] ([id number]) [address] [place] [address] 56157 #### HA1C #### [facility] ([id number]) [address], [address] [place] [address] MCHC (RBC) [Mass/Vol] 34.2 g/dL Normal 32-36 [facility] Comment on above: Performed By: #### P INR, 46213-4, CMP, 11420-4, 6873-4, 20399-5, CBCA, 4548-4 #### [facility] ([id number]) [address] [place] [address] 97057 #### HA1C #### [facility] ([id number]) [address], [address] [place] [address] MCV (RBC) [Entitic vol] 86 fL Normal 80-[address] [facility] Comment on above: Performed By: #### P INR, 06646-0, CMP, 99944-8, 6873-4, 52967-7, CBCA, 4548-4 #### [facility] ([id number]) [address] [place] [address] 79834 #### HA1C #### [facility] ([id number]) [address], [address] [place] [address] Monocytes (Bld) [#/Vol] 0.2 10*3/uL Normal 0-0.9 [facility] Comment on above: Performed By: #### P INR, 09785-4, CMP, 61244-2, 6873-4, 39518-2, CBCA, 4548-4 #### [facility] ([id number]) [address] [place] [address] 53349 #### HA1C #### [facility] ([id number]) [address], [address] [place] [address] Monocytes/100 WBC (Bld) 4.9 % Normal P [facility] Comment on above: Performed By: #### P INR, 79565-6, CMP, 25844-4, 6873-4, 79758-6, CBCA, 4548-4 #### [facility] ([id number]) [address] [place] [address] #### HA1C #### [facility] ([id number]) [address], [address] [place] [address] Neutrophils (Bld) [#/Vol] 1.4 10*3/uL Low 1.5-6.6 [facility] Comment on above: Performed By: #### P INR, 54624-2, CMP, 18782-8, 6873-4, 26871-2, CBCA, 4548-4 #### [facility] ([id number]) [address] [place] [address] 22768 #### HA1C #### [facility] ([id number]) [address], [address] [place] [address] Platelet mean volume (Bld) [Entitic vol] 7.7 fL Normal 7-12 [facility] Comment on above: Performed By: #### P INR, 77091-2, CMP, 76003-2, 6873-4, 44866-0, CBCA, 4548-4 #### [facility] ([id number]) [address] [place] [address] 29753 #### HA1C #### [facility] ([id number]) [address], [address] [place] [address] Platelets (Bld) [#/Vol] 214 10*3/uL Normal 150-450 [facility] Comment on above: Performed By: #### P INR, 62847-8, CMP, 84895-5, 6873-4, 09924-8, CBCA, 4548-4 #### [facility] ([id number]) [address] [place] [address] 09898 #### HA1C #### [facility] ([id number]) [address], [address] [place] [address] RBC COUNT 5.43 X10E12/L Normal 4.10-5.70 [facility] Comment on above: Performed By: #### P INR, 89836-0, CMP, 92508-7, 6873-4, 66979-9, CBCA, 4548-4 #### [facility] ([id number]) [address] [place] [address] 68738 #### HA1C #### [facility] ([id number]) [address] [facility] [address] [address], [address] [place] [address] SEG NEUTROPHIL 40.2 % Normal [facility] Comment on above: Performed By: #### P INR, 05236-7, CMP, 21390-2, 6873-4, 68543-7, CBCA, 4548-4 #### [facility] ([id number]) [address] [place] [address] 63899 #### HA1C #### [facility] ([id number]) [address] [place] [address], [address] [place] [address] WBC (Bld) [#/Vol] 3.4 10*3/uL Low 4.0-11.0 [facility] Comment on above: Performed By: #### P INR, 11205-4, CMP, 45016-1, 6873-4, 04520-3, CBCA, 4548-4 #### [facility] ([id number]) [address] [place] [address] 95706 #### HA1C #### [facility] ([id number]) [address] [facility] [facility] [address] [address], [address] [place] [address] COMPREHENSIVE METABOLIC PANE [place] 10-29-2023 Albumin [Mass/Vol] 4.1 g/dL Normal 3.2-5.3 [facility] Comment on above: Performed By: #### P INR, 83713-9, CMP, 99365-0, 6873-4, 34423-4, CBCA, 4548-4 #### [facility] ([id number]) [address] [place] [address] 23210 #### HA1C #### [facility] ([id number]) [address], [address] [place] [address] ALP [Catalytic activity/Vol] 66 U/L Normal 39-130 [facility] Comment on above: Performed By: #### P INR, 72547-6, CMP, 61111-8, 6873-4, 07621-5, CBCA, 4548-4 #### [facility] ([id number]) [address] [place] [address] 73174 #### HA1C #### [facility] ([id number]) [address] [facility] [address], [address] [place] [address] ALT [Catalytic activity/Vol] 27 U/L Normal 0-40 [facility] Comment on above: Performed By: #### P INR, 35820-5, CMP, 24623-1, 6873-4, 42187-2, CBCA, 4548-4 #### [facility] ([id number]) [address] [place] [address] 11367 #### HA1C #### [facility] ([id number]) [address], [address] [place] [address] Anion gap [Moles/Vol] 9 mmol/L Normal 5-15 [facility] Comment on above: Performed By: #### P INR, 12642-4, CMP, 25927-4, 6873-4, 89937-9, CBCA, 4548-4 #### [facility] ([id number]) [address] [place] [address] 59746 #### HA1C #### [facility] ([id number]) [address], [address] [place] [address] AST [Catalytic activity/Vol] 19 U/L Normal 0-41 [facility] Comment on above: Performed By: #### P INR, 07700-9, CMP, 63663-2, 6873-4, 73360-8, CBCA, 4548-4 #### [facility] ([id number]) [address] [place] [address] 04325 #### HA1C #### [facility] ([id number]) [address], [address] [place] [address] Bilirubin [Mass/Vol] 0.7 mg/dL Normal 0.3-1.2 [facility] Comment on above: Performed By: #### P INR, 93078-8, CMP, 00839-1, 6873-4, 12816-5, CBCA, 4548-4 #### [facility] ([id number]) [address] [place] [address] 32600 #### HA1C #### [facility] ([id number]) [address], [address] [place] [address] Calcium [Mass/Vol] 9.1 mg/dL Normal 8.5-10.5 [facility] Comment on above: Performed By: #### P INR, 23465-3, CMP, 90646-1, 6873-4, 46599-1, CBCA, 4548-4 #### [facility] ([id number]) [address] [place] [address] 37724 #### HA1C #### [facility] ([id number]) [address], [address] [place] [address] Chloride [Moles/Vol] 94 mmol/L Low 98-109 [facility] Comment on above: Performed By: #### P INR, 61458-3, CMP, 07918-7, 6873-4, 94429-4, CBCA, 4548-4 #### [facility] ([id number]) [address] [place] [address] 95047 #### HA1C #### [facility] ([id number]) [address], [address] [place] [address] CO2 [Moles/Vol] 28 mmol/L Normal 22-32 [facility] Comment on above: Performed By: #### P INR, 44406-5, CMP, 62858-3, 6873-4, 91357-1, CBCA, 4548-4 #### [facility] ([id number]) [address] [place] [address] 53682 #### HA1C #### [facility] ([id number]) [address] [place] [address] Creatinine [Mass/Vol] 0.78 mg/dL Normal 0.70-1.20 [facility] Comment on above: Result Comment: METH OD TRACEABLE TO IDMS STANDARD Performed By: #### P INR, 09772-8, CMP, 13876-5, 6873-4, 02546-1, CBCA, 4548-4 #### [facility] ([id number]) [address] [place] [address] 32105 #### HA1C #### [facility] ([id number]) [address] [place] [address] eGFR (CKD-EPI) NON-RACE DEPENDENT >90 Normal >59 [facility] Comment on above: Result Comment: Reported eGFR is based on the CKD-EPI 2021 equation that does not use a race coefficient. Performed By: #### P INR, 21779-1, CMP, 29942-6, 6873-4, 35667-7, CBCA, 4548-4 #### [facility] ([id number]) [address] [place] [address] 02345 #### HA1C #### [facility] ([id number]) [address] [place] [address] Glucose [Mass/Vol] 232 mg/dL High 65-99 [facility] Comment on above: Performed By: #### P INR, 21110-5, CMP, 08290-6, 6873-4, 64993-1, CBCA, 4548-4 #### [facility] ([id number]) [address] [place] [address] 27449 #### HA1C #### [facility] ([id number]) [address] [place] [address] Potassium [Moles/Vol] 4.1 mmol/L Normal 3.5-5.0 [facility] Comment on above: Performed By: #### P INR, 45541-3, CMP, 06760-3, 6873-4, 08628-6, CBCA, 4548-4 #### [facility] ([id number]) [address] [place] [address] 64717 #### HA1C #### [facility] ([id number]) [address] [place] [address] Protein [Mass/Vol] 7.1 g/dL Normal 6.0-8.0 [facility] Comment on above: Performed By: #### P INR, 05667-7, CMP, 89196-4, 6873-4, 36425-5, CBCA, 4548-4 #### [facility] ([id number]) [address] [place] [address] 41271 #### HA1C #### [facility] ([id number]) [address] [place] [address] Sodium [Moles/Vol] 131 mmol/L Low 134-146 [facility] Comment on above: Performed By: #### P INR, 70800-4, CMP, 82630-4, 6873-4, 63035-8, CBCA, 4548-4 #### [facility] ([id number]) [address] [place] [address] 06432 #### HA1C #### [facility] ([id number]) [address] [place] [address], [address] [place] [address] Urea nitrogen [Mass/Vol] 14 mg/dL Normal 5-27 [facility] Comment on above: Performed By: #### P INR, 47165-3, CMP, 66952-6, 6873-4, 23475-0, CBCA, 4548-4 #### [facility] ([id number]) [address] [place] [address] 38189 #### HA1C #### [facility] ([id number]) [address] [place] [address], [address] [address] MAGNESIUMon 10-29-2023 Magnesium [Mass/Vol] 1.9 mg/dL Normal 1.8-2.6 [facility] Comment on above: Performed By: #### P INR, 72496-3, CMP, 67428-9, 6873-4, 61940-0, CBCA, 4548-4 #### [facility] ([id number]) [address] [place] [address] 10262 #### HA1C #### [facility] ([id number]) [address] [place] [address], [address] [place] [address] CBC AND AUTO DIFFon 10-28-19 24 ABSOLUTE BASOPHIL 0.1 X10E9/L Normal 0.0-0.2 [facility] Comment on above: Performed By: #### P INR, 33350-8, CMP, 81064-3, 6873-4, 05263-5, CBCA, 4548-4 #### [facility] ([id number]) [address] [place] [address] 00788 #### HA1C #### [facility] ([id number]) [address] [place] [address], [address] [place] [address] ABSOLUTE NEUTROPHIL 1.5 X10E9/L Normal 1.5-6.6 [facility] Comment on above: Performed By: #### P INR, 37392-2, CMP, 40713-9, 6873-4, 92207-6, CBCA, 4548-4 #### [facility] ([id number]) [address] [place] [address] 44725 #### HA1C #### [facility] ([id number]) [address] [facility], [address] [place] [address] Basophils/100 WBC (Bld) 1.4 % Normal P [facility] Comment on above: Performed By: #### P INR, 91939-0, CMP, 61859-2, 6873-4, 26889-0, CBCA, 4548-4 #### [facility] ([id number]) [address] [place] [address] 00068 #### HA1C #### [facility] ([id number]) [address] [place] [address], [address] [place] [address] Eosinophils (Bld) [#/Vol] 0.1 10*3/uL Normal 0.0-0.4 [facility] Comment on above: Performed By: #### P INR, 10857-4, CMP, 60232-5, 6873-4, 01753-2, CBCA, 4548-4 #### [facility] ([id number]) [address] [place] [address] #### HA1C #### [facility] ([id number]) [address] [place] [address], [address] [place] [address] Eosinophils/100 WBC (Bld) 3.1 % Normal [facility] Comment on above: Performed By: #### P INR, 74220-9, CMP, 04516-6, 6873-4, 04927-9, CBCA, 4548-4 #### [facility] ([id number]) [address] [place] [address] #### HA1C #### [facility] ([id number]) [address], [address] [place] [address] Erythrocyte distribution width (RBC) [Ratio] 13.6 % Normal 11.5-15.0 [facility] Comment on above: Performed By: #### P INR, 94168-8, CMP, 91469-6, 6873-4, 81093-0, CBCA, 4548-4 #### [facility] ([id number]) [address] [place] [address] #### HA1C #### [facility] ([id number]) [address], [address] [place] [address] Hematocrit (Bld) [Volume fraction] 42.8 % Normal 39-49 [facility] Comment on above: Performed By: #### P INR, 27448-0, CMP, 05010-0, 6873-4, 73834-5, CBCA, 4548-4 #### [facility] ([id number]) [address] [place] [address] #### HA1C #### [facility] ([id number]) [address], [address] [place] [address] Hemoglobin (Bld) [Mass/Vol] 14.9 g/dL Normal 13.0-17.0 [facility] Comment on above: Performed By: #### P INR, 17806-4, CMP, 12983-1, 6873-4, 52948-9, CBCA, 4548-4 #### [facility] ([id number]) [address] [place] [address] #### HA1C #### [facility] ([id number]) [address], [address] [place] [address] Lymphocytes (Bld) [#/Vol] 1.8 10*3/uL Normal 1.0-3.5 [facility] Comment on above: Performed By: #### P INR, 22095-3, CMP, 94486-5, 6873-4, 82499-5, CBCA, 4548-4 #### [facility] ([id number]) [address] [place] [address] #### HA1C #### [facility] ([id number]) [address], [address] [place] [address] Lymphocytes/100 WBC (Bld) 46.0 % Normal [facility] Comment on above: Performed By: #### P INR, 91698-4, CMP, 14957-5, 6873-4, 89553-0, CBCA, 4548-4 #### [facility] ([id number]) [address] [place] [address] #### HA1C #### [facility] ([id number]) [address], [address] [place] [address] MCH (RBC) [Entitic mass] 29.6 pg Normal 27-34 [facility] Comment on above: Performed By: #### P INR, 64836-9, CMP, 66414-2, 6873-4, 49475-2, CBCA, 4548-4 #### [facility] ([id number]) [address] [place] [address] #### HA1C #### [facility] ([id number]) [address], [address] [place] [address] MCHC (RBC) [Mass/Vol] 34.7 g/dL Normal 32-36 [facility] Comment on above: Performed By: #### P INR, 21499-9, CMP, 44270-1, 6873-4, 54679-0, CBCA, 4548-4 #### [facility] ([id number]) [address] [place] [address] 90322 #### HA1C #### [facility] ([id number]) [address], [address] [place] [address] MCV (RBC) [Entitic vol] 86 fL Normal 80-[address] [facility] Comment on above: Performed By: #### P INR, 39586-7, CMP, 68568-4, 6873-4, 12925-2, CBCA, 4548-4 #### [facility] ([id number]) [address] [place] [address] 26208 #### HA1C #### [facility] ([id number]) [address], [address] [place] [address] Monocytes (Bld) [#/Vol] 0.4 10*3/uL Normal 0-0.9 [facility] Comment on above: Performed By: #### P INR, 52997-2, CMP, 49350-2, 6873-4, 76489-4, CBCA, 4548-4 #### [facility] ([id number]) [address] [place] [address] 64381 #### HA1C #### [facility] ([id number]) [address], [address] [place] [address] Monocytes/100 WBC (Bld) 10.4 % Normal [facility] Comment on above: Performed By: #### P INR, 39191-6, CMP, 55196-3, 6873-4, 63067-6, CBCA, 4548-4 #### [facility] ([id number]) [address] [place] [address] 94406 #### HA1C #### [facility] ([id number]) [address], [address] [place] [address] Neutrophils/100 WBC (Bld) 39.1 % Normal [facility] Comment on above: Performed By: #### P INR, 08167-0, CMP, 46210-3, 6873-4, 26036-1, CBCA, 4548-4 #### [facility] ([id number]) [address] [place] [address] 85929 #### HA1C #### [facility] ([id number]) [address], [address] [place] [address] Platelet mean volume (Bld) [Entitic vol] 7.9 fL Normal 7-12 [facility] Comment on above: Performed By: #### P INR, 48186-1, CMP, 10273-9, 6873-4, 48542-8, CBCA, 4548-4 #### [facility] ([id number]) [address] [place] [address] 84054 #### HA1C #### [facility] ([id number]) [address], [address] [place] [address] Platelets (Bld) [#/Vol] 197 10*3/uL Normal 150-450 [facility] Comment on above: Performed By: #### P INR, 45112-6, CMP, 80004-1, 6873-4, 76569-1, CBCA, 4548-4 #### [facility] ([id number]) [address] [place] [address] 97971 #### HA1C #### [facility] ([id number]) [address], [address] [place] [address] RBC COUNT 5.01 X10E12/L Normal 4.10-5.70 [facility] Comment on above: Performed By: #### P INR, 77740-7, CMP, 12162-8, 6873-4, 61500-4, CBCA, 4548-4 #### [facility] ([id number]) [address] [place] [address] 24009 #### HA1C #### [facility] ([id number]) [address], [address] [place] [address] WBC (Bld) [#/Vol] 3.9 10*3/uL Low 4.0-11.0 [facility] Comment on above: Performed By: #### P INR, 75413-5, CMP, 53245-5, 6873-4, 56076-2, CBCA, 4548-4 #### [facility] ([id number]) [address] [place] [address] 36577 #### HA1C #### [facility] ([id number]) [address], [address] [place] [address] COMPREHENSIVE METABOLIC PANE [place] 10-28-2023 Albumin [Mass/Vol] 3.8 g/dL Normal 3.2-5.3 [facility] Comment on above: Performed By: #### P INR, 82486-1, CMP, 77986-2, 6873-4, 68627-5, CBCA, 4548-4 #### [facility] ([id number]) [address] [place] [address] 76168 #### HA1C #### [facility] ([id number]) [address], [address] [place] [address] ALP [Catalytic activity/Vol] 61 U/L Normal 39-130 [facility] Comment on above: Performed By: #### P INR, 84870-4, CMP, 98790-5, 6873-4, 87891-2, CBCA, 4548-4 #### [facility] ([id number]) [address] [place] [address] 04106 #### HA1C #### [facility] ([id number]) [address], [address] [place] [address] ALT [Catalytic activity/Vol] 22 U/L Normal 0-40 [facility] Comment on above: Performed By: #### P INR, 32773-3, CMP, 87863-1, 6873-4, 80590-8, CBCA, 4548-4 #### [facility] ([id number]) [address] [place] [address] 97075 #### HA1C #### [facility] ([id number]) [address], [address] [place] [address] Anion gap [Moles/Vol] 10 mmol/L Normal 5-15 [facility] Comment on above: Performed By: #### P INR, 14300-8, CMP, 19728-5, 6873-4, 08678-2, CBCA, 4548-4 #### [facility] ([id number]) [address] [place] [address] 55518 #### HA1C #### [facility] ([id number]) [address], [address] [place] [address] AST [Catalytic activity/Vol] 18 U/L Normal 0-41 [facility] Comment on above: Performed By: #### P INR, 40646-7, CMP, 79178-0, 6873-4, 16316-2, CBCA, 4548-4 #### [facility] ([id number]) [address] [place] [address] 94539 #### HA1C #### [facility] ([id number]) [address], [address] [place] [address] Bilirubin [Mass/Vol] 0.8 mg/dL Normal 0.3-1.2 [facility] Comment on above: Performed By: #### P INR, 54330-8, CMP, 95141-9, 6873-4, 02259-1, CBCA, 4548-4 #### [facility] ([id number]) [address] [place] [address] 74686 #### HA1C #### [facility] ([id number]) [address], [address] [place] [address] Calcium [Mass/Vol] 8.5 mg/dL Normal 8.5-10.5 [facility] Comment on above: Performed By: #### P INR, 55314-8, CMP, 12288-0, 6873-4, 00689-6, CBCA, 4548-4 #### [facility] ([id number]) [address] [place] [address] 21716 #### HA1C #### [facility] ([id number]) [address], [address] [place] [address] Chloride [Moles/Vol] 94 mmol/L Low 98-109 [facility] Comment on above: Performed By: #### P INR, 02098-6, CMP, 05682-1, 6873-4, 02572-8, CBCA, 4548-4 #### [facility] ([id number]) [address] [place] [address] 66642 #### HA1C #### [facility] ([id number]) [address], [address] [place] [address] CO2 [Moles/Vol] 26 mmol/L Normal 22-32 [facility] Comment on above: Performed By: #### P INR, 81452-9, CMP, 90758-4, 6873-4, 99070-2, CBCA, 4548-4 #### [facility] ([id number]) [address] [place] [address] 32270 #### HA1C #### [facility] ([id number]) [address], [address] [place] [address] Creatinine [Mass/Vol] 0.79 mg/dL Normal 0.70-1.20 [facility] Comment on above: Result Comment: METH OD TRACEABLE TO IDMS STANDARD Performed By: #### P INR, 47700-7, CMP, 92394-5, 6873-4, 88796-9, CBCA, 4548-4 #### [facility] ([id number]) [address] [place] [address] 66035 #### HA1C #### [facility] ([id number]) [address], [address] [place] [address] eGFR (CKD-EPI) NON-RACE DEPENDENT >90 Normal >59 [facility] Comment on above: Result Comment: Reported eGFR is based on the CKD-EPI 2020 equation that does not use a race coefficient. Performed By: #### P INR, 73123-7, CMP, 77881-3, 6873-4, 65745-2, CBCA, 4548-4 #### [facility] ([id number]) [address] [place] [address] 77133 #### HA1C #### [facility] ([id number]) [address], [address] [place] [address] Glucose [Mass/Vol] 228 mg/dL High 65-99 [facility] Comment on above: Performed By: #### P INR, 51176-2, CMP, 32930-1, 6873-4, 94481-9, CBCA, 4548-4 #### [facility] ([id number]) [address] [place] [address] 43789 #### HA1C #### [facility] ([id number]) [address], [address] [place] [address] Potassium [Moles/Vol] 3.7 mmol/L Normal 3.5-5.0 [facility] Comment on above: Performed By: #### P INR, 48180-7, CMP, 72512-7, 6873-4, 30725-0, CBCA, 4548-4 #### [facility] ([id number]) [address] [place] [address] 28139 #### HA1C #### [facility] ([id number]) [address], [address] [place] [address] Protein [Mass/Vol] 6.3 g/dL Normal 6.0-8.0 [facility] Comment on above: Performed By: #### P INR, 11538-7, CMP, 44285-8, 6873-4, 01029-6, CBCA, 4548-4 #### [facility] ([id number]) [address] [place] [address] 17195 #### HA1C #### [facility] ([id number]) [address] [place] [address] Sodium [Moles/Vol] 130 mmol/L Low 134-146 [facility] Comment on above: Performed By: #### P INR, 40040-9, CMP, 68533-1, 6873-4, 84059-9, CBCA, 4548-4 #### [facility] ([id number]) [address] [place] [address] 76061 #### HA1C #### [facility] ([id number]) [address], [address] [place] [address] Urea nitrogen [Mass/Vol] 16 mg/dL Normal 5-27 [facility] Comment on above: Performed By: #### P INR, 37506-0, CMP, 41585-5, 6873-4, 77653-0, CBCA, 4548-4 #### [facility] ([id number]) [address] [place] [address] 91310 #### HA1C #### [facility] ([id number]) [address], [address] [place] [address] CT CTA CAROTIDon 10-28-2023 CT CTA CAROTID [...] Giles MD on 10/28/2023 12:26 PM Normal [facility] CT CTA HEADon 10-28-2023 CT [...] Mayes MD on 10/28/2023 12:38 PM Normal [facility] Glucose Glucometer (BldC) [M ass/Vol]on 10-28-2023 Glucose [Mass/Vol] 226 mg/dL High 65-99 [facility] Glucose [Mass/Vol] 279 mg/dL High 65-99 [facility] Glucose [Mass/Vol] 248 mg/dL High 65-99 [facility] Glucose [Mass/Vol] 221 mg/dL High 65-99 [facility] Lipid 1996 panelon Cholesterol [Mass/Vol] 219 mg/dL High 150-200 [facility] Comment on above: Performed By: #### P INR, 78616-2, CMP, 12722-8, 6873-4, 39776-8, CBCA, 4548-4 #### [facility] ([id number]) [address] [place] [address] 60427 #### HA1C #### [facility] ([id number]) [address], [address] [place] [address] Cholesterol in HDL [Mass/Vol] 43 mg/dL Normal >39 [facility] Comment on above: Result Comment: HDL <40 mg/dL - High Risk HDL > or = 40mg/dL- Desirable HDL >60 mg/dL - Negative Risk Performed By: #### P INR, 04636-3, CMP, 81369-1, 6873-4, 73897-6, CBCA, 4548-4 #### [facility] ([id number]) [address] [place] [address] 73351 #### HA1C #### [facility] ([id number]) [address] [place] [address] Cholesterol in LDL [Mass/Vol] 143 mg/dL High <130 [facility] Comment on above: Result Comment: LDL <100 mg/dL - Desirable LDL >160 mg/dL - High Risk Performed By: #### P INR, 99982-6, CMP, 97099-9, 6873-4, 22218-6, CBCA, 4548-4 #### [facility] ([id number]) [address] [place] [address] 60903 #### HA1C #### [facility] ([id number]) [address], [address] [place] [address] Cholesterol in VLDL [Mass/Vol] 33 mg/dL High 0-30 [facility] Comment on above: Performed By: #### P INR, 76913-3, CMP, 14734-6, 6873-4, 58032-7, CBCA, 4548-4 #### [facility] ([id number]) [address] [place] [address] 98411 #### HA1C #### [facility] ([id number]) [address], [address] [place] [address] CHOLESTEROL:HDL 5.1 High 1.0-5.0 [facility] Comment on above: Performed By: #### P INR, 96251-0, CMP, 58600-2, 6873-4, 51028-1, CBCA, 4548-4 #### [facility] ([id number]) [address] [place] [address] 18006 #### HA1C #### [facility] ([id number]) [address] [place] [address] Triglyceride [Mass/Vol] 164 mg/dL High 27-150 [facility] Comment on above: Performed By: #### P INR, 57328-5, CMP, 25290-3, 6873-4, 26051-0, CBCA, 4548-4 #### [facility] ([id number]) [address] [place] [address] #### HA1C #### [facility] ([id number]) [address] [place] [address] MAGNESIUMon 10-28-2023 Magnesium [Mass/Vol] 1.8 mg/dL Normal 1.8-2.6 [facility] Comment on above: Performed By: #### P INR, 74408-4, CMP, 24028-8, 6873-4, 74104-9, CBCA, 4548-4 #### [facility] ([id number]) [address] [place] [address] 71466 #### HA1C #### [facility] ([id number]) [address] [place] [address] MR BRAIN WO CONTon MR BRAIN WO [...] Anderson MD on 10/28/2023 10:39 AM Normal [facility] CBC AND AUTO DIFFon 10-27-19 24 ABSOLUTE BASOPHIL 0.0 X10E9/L Normal 0.0-0.2 [facility] Comment on above: Performed By: #### P INR, 96530-3, CMP, 93224-4, 6873-4, 38177-9, CBCA, 4548-4 #### [facility] ([id number]) [address] [place] [address] 04920 #### HA1C #### [facility] ([id number]) [address] [place] [address] ABSOLUTE NEUTROPHIL 1.8 X10E9/L Normal 1.5-6.6 [facility] Comment on above: Performed By: #### P INR, 49773-3, CMP, 11391-3, 6873-4, 49173-2, CBCA, 4548-4 #### [facility] ([id number]) [address] [place] [address] 90060 #### HA1C #### [facility] ([id number]) [address], [address] [place] [address] Basophils/100 WBC (Bld) 1.2 % Normal P [facility] Comment on above: Performed By: #### P INR, 60031-4, CMP, 55098-3, 6873-4, 67027-7, CBCA, 4548-4 #### [facility] ([id number]) [address] [place] [address] 42711 #### HA1C #### [facility] ([id number]) [address] [place] [address] Eosinophils (Bld) [#/Vol] 0.1 10*3/uL Normal 0.0-0.4 [facility] Comment on above: Performed By: #### P INR, 74352-0, CMP, 38762-1, 6873-4, 84278-5, CBCA, 4548-4 #### [facility] ([id number]) [address] [place] [address] 75488 #### HA1C #### [facility] ([id number]) [address] [place] [address] Eosinophils/100 WBC (Bld) 2.5 % Normal [facility] Comment on above: Performed By: #### P INR, 94676-0, CMP, 80012-4, 6873-4, 81326-9, CBCA, 4548-4 #### [facility] ([id number]) [address] [place] [address] 26982 #### HA1C #### [facility] ([id number]) [address] [place] [address] Erythrocyte distribution width (RBC) [Ratio] 13.5 % Normal 11.5-15.0 [facility] Comment on above: Performed By: #### P INR, 93546-6, CMP, 44635-3, 6873-4, 69442-9, CBCA, 4548-4 #### [facility] ([id number]) [address] [place] [address] 33576 #### HA1C #### [facility] ([id number]) [address] [place] [address] Hematocrit (Bld) [Volume fraction] 43.3 % Normal 39-49 [facility] Comment on above: Performed By: #### P INR, 91013-0, CMP, 10135-8, 6873-4, 49770-4, CBCA, 4548-4 #### [facility] ([id number]) [address] [place] [address] 27104 #### HA1C #### [facility] ([id number]) [address] [facility] [address] [place] [address] Hemoglobin (Bld) [Mass/Vol] 14.9 g/dL Normal 13.0-17.0 [facility] Comment on above: Performed By: #### P INR, 98799-2, CMP, 23374-9, 6873-4, 97739-3, CBCA, 4548-4 #### [facility] ([id number]) [address] [place] [address] 16901 #### HA1C #### [facility] ([id number]) [address], [facility] [address] [place] [address] Lymphocytes (Bld) [#/Vol] 1.3 10*3/uL Normal 1.0-3.5 [facility] Comment on above: Performed By: #### P INR, 02981-9, CMP, 51905-5, 6873-4, 96315-5, CBCA, 4548-4 #### [facility] ([id number]) [address] [place] [address] 83283 #### HA1C #### [facility] ([id number]) [address], [facility] [address] [place] [address] Lymphocytes/100 WBC (Bld) 36.9 % Normal [facility] Comment on above: Performed By: #### P INR, 46313-9, CMP, 09947-9, 6873-4, 48172-0, CBCA, 4548-4 #### [facility] ([id number]) [address] [place] [address] 06077 #### HA1C #### [facility] ([id number]) [address] [place] [address] MCH (RBC) [Entitic mass] 29.3 pg Normal 27-34 [facility] Comment on above: Performed By: #### P INR, 15174-5, CMP, 92641-9, 6873-4, 08968-9, CBCA, 4548-4 #### [facility] ([id number]) [address] [place] [address] 94839 #### HA1C #### [facility] ([id number]) [address], [address] [place] [address] MCHC (RBC) [Mass/Vol] 34.4 g/dL Normal 32-36 [facility] Comment on above: Performed By: #### P INR, 88619-3, CMP, 23528-0, 6873-4, 54354-9, CBCA, 4548-4 #### [facility] ([id number]) [address] [place] [address] 64526 #### HA1C #### [facility] ([id number]) [address] [place] [address] MCV (RBC) [Entitic vol] 85 fL Normal 80-[address] [facility] Comment on above: Performed By: #### P INR, 32648-7, CMP, 25059-4, 6873-4, 84166-1, CBCA, 4548-4 #### [facility] ([id number]) [address] [place] [address] 66588 #### HA1C #### [facility] ([id number]) [address] [place] [address] Monocytes (Bld) [#/Vol] 0.3 10*3/uL Normal 0-0.9 [facility] Comment on above: Performed By: #### P INR, 94316-9, CMP, 94028-8, 6873-4, 82969-9, CBCA, 4548-4 #### [facility] ([id number]) [address] [place] [address] 44817 #### HA1C #### [facility] ([id number]) [address] [place] [address] Monocytes/100 WBC (Bld) 8.4 % Normal [facility] Comment on above: Performed By: #### P INR, 89512-0, CMP, 24619-7, 6873-4, 02519-3, CBCA, 4548-4 #### [facility] ([id number]) [address] [place] [address] 00385 #### HA1C #### [facility] ([id number]) [address] [place] [address] Neutrophils/100 WBC (Bld) 51.0 % Normal [facility] Comment on above: Performed By: #### P INR, 89722-8, CMP, 44066-2, 6873-4, 84619-9, CBCA, 4548-4 #### [facility] ([id number]) [address] [place] [address] 65273 #### HA1C #### [facility] ([id number]) [address] [place] [address] Platelet mean volume (Bld) [Entitic vol] 7.7 fL Normal 7-12 [facility] Comment on above: Performed By: #### P INR, 81980-7, CMP, 23507-9, 6873-4, 97546-5, CBCA, 4548-4 #### [facility] ([id number]) [address] [place] [address] #### HA1C #### [facility] ([id number]) [address], [address] [place] [address] Platelets (Bld) [#/Vol] 192 10*3/uL Normal 150-450 [facility] Comment on above: Performed By: #### P INR, 83371-5, CMP, 97617-2, 6873-4, 07351-5, CBCA, 4548-4 #### [facility] ([id number]) [address] [place] [address] #### HA1C #### [facility] ([id number]) [address], [address] [place] [address] RBC COUNT 5.08 X10E12/L Normal 4.10-5.70 [facility] Comment on above: Performed By: #### P INR, 26825-8, CMP, 69497-9, 6873-4, 45430-4, CBCA, 4548-4 #### [facility] ([id number]) [address] [place] [address] #### HA1C #### [facility] ([id number]) [address], [address] [place] [address] WBC (Bld) [#/Vol] 3.6 10*3/uL Low 4.0-11.0 [facility] Comment on above: Performed By: #### P INR, 87513-9, CMP, 39227-2, 6873-4, 20295-6, CBCA, 4548-4 #### [facility] ([id number]) [address] [place] [address] #### HA1C #### [facility] ([id number]) [address], [address] [place] [address] COMPREHENSIVE METABOLIC PANE [place] 10-27-2023 Albumin [Mass/Vol] 4.0 g/dL Normal 3.2-5.3 [facility] Comment on above: Performed By: #### P INR, 00817-9, CMP, 63470-1, 6873-4, 72613-9, CBCA, 4548-4 #### [facility] ([id number]) [address] [place] [address] #### HA1C #### [facility] ([id number]) [address], [address] [place] [address] ALP [Catalytic activity/Vol] 65 U/L Normal 39-130 [facility] Comment on above: Performed By: #### P INR, 33722-3, CMP, 15663-1, 6873-4, 88919-9, CBCA, 4548-4 #### [facility] ([id number]) [address] [place] [address] #### HA1C #### [facility] ([id number]) [address], [address] [place] [address] ALT [Catalytic activity/Vol] 21 U/L Normal 0-40 [facility] Comment on above: Performed By: #### P INR, 27317-1, CMP, 13089-7, 6873-4, 42876-6, CBCA, 4548-4 #### [facility] ([id number]) [address] [place] [address] #### HA1C #### [facility] ([id number]) [address], [address] [place] [address] Anion gap [Moles/Vol] 4 mmol/L Low 5-15 [facility] Comment on above: Performed By: #### P INR, 48875-8, CMP, 23833-6, 6873-4, 66741-7, CBCA, 4548-4 #### [facility] ([id number]) [address] [place] [address] #### HA1C #### [facility] ([id number]) [address], [address] [place] [address] AST [Catalytic activity/Vol] 17 U/L Normal 0-41 [facility] Comment on above: Performed By: #### P INR, 85099-2, CMP, 65004-2, 6873-4, 88202-7, CBCA, 4548-4 #### [facility] ([id number]) [address] [place] [address] #### HA1C #### [facility] ([id number]) [address], [address] [place] [address] Bilirubin [Mass/Vol] 1.1 mg/dL Normal 0.3-1.2 [facility] Comment on above: Performed By: #### P INR, 92016-8, CMP, 60626-9, 6873-4, 16662-9, CBCA, 4548-4 #### [facility] ([id number]) [address] [place] [address] #### HA1C #### [facility] ([id number]) [address], [address] [place] [address] Calcium [Mass/Vol] 8.3 mg/dL Low 8.5-10.5 [facility] Comment on above: Performed By: #### P INR, 43790-8, CMP, 86713-6, 6873-4, 45133-1, CBCA, 4548-4 #### [facility] ([id number]) [address] [place] [address] 11441 #### HA1C #### [facility] ([id number]) [address], [address] [place] [address] Chloride [Moles/Vol] 101 mmol/L Normal 98-109 [facility] Comment on above: Performed By: #### P INR, 76395-4, CMP, 45571-4, 6873-4, 44824-8, CBCA, 4548-4 #### [facility] ([id number]) [address] [place] [address] 86581 #### HA1C #### [facility] ([id number]) [address], [address] [place] [address] CO2 [Moles/Vol] 24 mmol/L Normal 22-32 [facility] Comment on above: Performed By: #### P INR, 63508-4, CMP, 14337-8, 6873-4, 21936-2, CBCA, 4548-4 #### [facility] ([id number]) [address] [place] [address] 27019 #### HA1C #### [facility] ([id number]) [address], [address] [place] [address] Creatinine [Mass/Vol] 0.75 mg/dL Normal 0.70-1.20 [facility] Comment on above: Result Comment: METH OD TRACEABLE TO IDMS STANDARD Performed By: #### P INR, 69730-0, CMP, 79177-9, 6873-4, 11494-3, CBCA, 4548-4 #### [facility] ([id number]) [address] [place] [address] 28330 #### HA1C #### [facility] ([id number]) [address], [address] [place] [address] eGFR (CKD-EPI) NON-RACE DEPENDENT >90 Normal >59 [facility] Comment on above: Result Comment: Reported eGFR is based on the CKD-EPI 2020 equation that does not use a race coefficient. Performed By: #### P INR, 28001-1, CMP, 18892-7, 6873-4, 58035-6, CBCA, 4548-4 #### [facility] ([id number]) [address] [place] [address] 33672 #### HA1C #### [facility] ([id number]) [address], [address] [place] [address] Glucose [Mass/Vol] 272 mg/dL High 65-99 [facility] Comment on above: Performed By: #### P INR, 96083-7, CMP, 35528-5, 6873-4, 84925-9, CBCA, 4548-4 #### [facility] ([id number]) [address] [place] [address] 10455 #### HA1C #### [facility] ([id number]) [address], [address] [place] [address] Potassium [Moles/Vol] 4.1 mmol/L Normal 3.5-5.0 [facility] Comment on above: Performed By: #### P INR, 75212-8, CMP, 04076-1, 6873-4, 96081-5, CBCA, 4548-4 #### [facility] ([id number]) [address] [place] [address] 77640 #### HA1C #### [facility] ([id number]) [address], [address] [place] [address] Protein [Mass/Vol] 6.4 g/dL Normal 6.0-8.0 [facility] Comment on above: Performed By: #### P INR, 02778-0, CMP, 37172-9, 6873-4, 82206-5, CBCA, 4548-4 #### [facility] ([id number]) [address] [place] [address] 20924 #### HA1C #### [facility] ([id number]) [address], [address] [place] [address] Sodium [Moles/Vol] 129 mmol/L Low 134-146 [facility] Comment on above: Performed By: #### P INR, 37613-7, CMP, 73586-0, 6873-4, 20869-6, CBCA, 4548-4 #### [facility] ([id number]) [address] [place] [address] 36710 #### HA1C #### [facility] ([id number]) [address], [address] [place] [address] Urea nitrogen [Mass/Vol] 20 mg/dL Normal 5-27 [facility] Comment on above: Performed By: #### P INR, 34545-4, CMP, 84708-4, 6873-4, 41302-5, CBCA, 4548-4 #### [facility] ([id number]) [address] [place] [address] 02029 #### HA1C #### [facility] ([id number]) [address], [address] [place] [address] Glucose Glucometer (dC) [M ass/Vol]on 10-27-2023 Glucose [Mass/Vol] 293 mg/dL High 65-99 [facility] Glucose [Mass/Vol] 311 mg/dL High 65-99 [facility] Glucose [Mass/Vol] 270 mg/dL High 65-99 [facility] Glucose [Mass/Vol] 280 mg/dL High 65-99 [facility] Glucose [Mass/Vol] 260 mg/dL High 65-99 [facility] MAGNESIUMon 10-27-2023 Magnesium [Mass/Vol] 2.2 mg/dL Normal 1.8-2.6 [facility] Comment on above: Performed By: #### P INR, 87081-3, CMP, 56129-0, 6873-4, 64705-1, CBCA, 4548-4 #### [facility] ([id number]) [address] [place] [address] 88254 #### HA1C #### [facility] ([id number]) [address], [address] [place] [address] Beta hydroxybutyrate [Moles/ Vol]on 10-26-2023 BetaHydroxybutyrate 1.69 mmol/L High 0.02-0.27 [facility] Comment on above: Performed By: #### P INR, 05930-9, CMP, 94751-0, 6873-4, 27586-5, CBCA, 4548-4 #### [facility] ([id number]) [address] [place] [address] 85569 #### HA1C #### [facility] ([id number]) [address] [facility], [address] [place] [address] CBC AND AUTO DIFFon 10-26-20 ABSOLUTE BASOPHIL 0.0 X10E9/L Normal 0.0-0.2 [facility] Comment on above: Performed By: #### P INR, 46199-3, CMP, 59684-2, 6873-4, 20195-9, CBCA, 4548-4 #### [facility] ([id number]) [address] [place] [address] 38616 #### HA1C #### [facility] ([id number]) [address], [address] [place] [address] ABSOLUTE NEUTROPHIL 2.5 X10E9/L Normal 1.5-6.6 [facility] Comment on above: Performed By: #### P INR, 15318-8, CMP, 10313-7, 6873-4, 18057-3, CBCA, 4548-4 #### [facility] ([id number]) [address] [place] [address] 50096 #### HA1C #### [facility] ([id number]) [address], [address] [place] [address] Basophils/100 WBC (Bld) 1.0 % Normal P [facility] Comment on above: Performed By: #### P INR, 01847-9, CMP, 74739-3, 6873-4, 20248-4, CBCA, 4548-4 #### [facility] ([id number]) [address] [place] [address] 46242 #### HA1C #### [facility] ([id number]) [address] [facility], [address] [place] [address] Eosinophils (Bld) [#/Vol] 0.1 10*3/uL Normal 0.0-0.4 [facility] Comment on above: Performed By: #### P INR, 62043-5, CMP, 57038-3, 6873-4, 13064-4, CBCA, 4548-4 #### [facility] ([id number]) [address] [place] [address] 16581 #### HA1C #### [facility] ([id number]) [address] [facility], [address] [address] Eosinophils/100 WBC (Bld) 1.2 % Normal [facility] Comment on above: Performed By: #### P INR, 19424-2, CMP, 73238-5, 6873-4, 04885-3, CBCA, 4548-4 #### [facility] ([id number]) [address] [place] [address] 11550 #### HA1C #### [facility] ([id number]) [address] [place] [address], [facility] [address] [place] [address] Erythrocyte distribution width (RBC) [Ratio] 13.4 % Normal 11.5-15.0 [facility] Comment on above: Performed By: #### P INR, 87147-2, CMP, 64548-8, 6873-4, 29926-8, CBCA, 4548-4 #### [facility] ([id number]) [address] [place] [address] 79586 #### HA1C #### [facility] ([id number]) [address], [address] [place] [address] Hematocrit (Bld) [Volume fraction] 46.5 % Normal 39-49 [facility] Comment on above: Performed By: #### P INR, 22719-7, CMP, 42651-9, 6873-4, 63966-5, CBCA, 4548-4 #### [facility] ([id number]) [address] [place] [address] 00987 #### HA1C #### [facility] ([id number]) [address], [address] [place] [address] Hemoglobin (Bld) [Mass/Vol] 16.0 g/dL Normal 13.0-17.0 [facility] Comment on above: Performed By: #### P INR, 62955-7, CMP, 94280-0, 6873-4, 13471-6, CBCA, 4548-4 #### [facility] ([id number]) [address] [place] [address] 84641 #### HA1C #### [facility] ([id number]) [address], [address] [place] [address] Lymphocytes (Bld) [#/Vol] 1.4 10*3/uL Normal 1.0-3.5 [facility] Comment on above: Performed By: #### P INR, 13409-3, CMP, 40699-2, 6873-4, 95646-8, CBCA, 4548-4 #### [facility] ([id number]) [address] [place] [address] 83763 #### HA1C #### [facility] ([id number]) [address], [address] [place] [address] Lymphocytes/100 WBC (Bld) 31.7 % Normal [facility] Comment on above: Performed By: #### P INR, 24038-8, CMP, 91501-6, 6873-4, 21142-5, CBCA, 4548-4 #### [facility] ([id number]) [address] [place] [address] 57792 #### HA1C #### [facility] ([id number]) [address], [address] [place] [address] MCH (RBC) [Entitic mass] 29.6 pg Normal 27-34 [facility] Comment on above: Performed By: #### P INR, 29007-7, CMP, 22844-9, 6873-4, 21213-8, CBCA, 4548-4 #### [facility] ([id number]) [address] [place] [address] 57767 #### HA1C #### [facility] ([id number]) [address], [address] [place] [address] MCHC (RBC) [Mass/Vol] 34.4 g/dL Normal 32-36 [facility] Comment on above: Performed By: #### P INR, 40544-2, CMP, 86438-6, 6873-4, 52841-3, CBCA, 4548-4 #### [facility] ([id number]) [address] [place] [address] 59977 #### HA1C #### [facility] ([id number]) [address], [address] [place] [address] MCV (RBC) [Entitic vol] 86 fL Normal 80-100 [facility] Comment on above: Performed By: #### P INR, 72717-5, CMP, 03354-5, 6873-4, 97608-2, CBCA, 4548-4 #### [facility] ([id number]) [address] [place] [address] 06112 #### HA1C #### [facility] ([id number]) [address], [address] [place] [address] Monocytes (Bld) [#/Vol] 0.3 10*3/uL Normal 0-0.9 [facility] Comment on above: Performed By: #### P INR, 96910-3, CMP, 39257-4, 6873-4, 89837-9, CBCA, 4548-4 #### [facility] ([id number]) [address] [place] [address] 93685 #### HA1C #### [facility] ([id number]) [address], [address] [place] [address] Monocytes/100 WBC (Bld) 7.3 % Normal [facility] Comment on above: Performed By: #### P INR, 29030-4, CMP, 28895-3, 6873-4, 64629-6, CBCA, 4548-4 #### [facility] ([id number]) [address] [place] [address] 32183 #### HA1C #### [facility] ([id number]) [address], [address] [place] [address] Neutrophils/100 WBC (Bld) 58.8 % Normal [facility] Comment on above: Performed By: #### P INR, 34090-6, CMP, 92512-5, 6873-4, 66564-7, CBCA, 4548-4 #### [facility] ([id number]) [address] [place] [address] 25590 #### HA1C #### [facility] ([id number]) [address], [address] [place] [address] Platelet mean volume (Bld) [Entitic vol] 8.0 fL Normal 7-12 [facility] Comment on above: Performed By: #### P INR, 85539-5, CMP, 96101-9, 6873-4, 50601-1, CBCA, 4548-4 #### [facility] ([id number]) [address] [place] [address] 98683 #### HA1C #### [facility] ([id number]) [address], [address] [place] [address] Platelets (Bld) [#/Vol] 219 10*3/uL Normal 150-450 [facility] Comment on above: Performed By: #### P INR, 46128-8, CMP, 76257-1, 6873-4, 91689-1, CBCA, 4548-4 #### [facility] ([id number]) [address] [place] [address] 13469 #### HA1C #### [facility] ([id number]) [address], [address] [place] [address] RBC COUNT 5.41 X10E12/L Normal 4.10-5.70 [facility] Comment on above: Performed By: #### P INR, 10105-0, CMP, 92547-8, 6873-4, 46016-4, CBCA, 4548-4 #### [facility] ([id number]) [address] [place] [address] 29438 #### HA1C #### [facility] ([id number]) [address], [address] [place] [address] WBC (Bld) [#/Vol] 4.3 10*3/uL Normal 4.0-11.0 [facility] Comment on above: Performed By: #### P INR, 71186-2, CMP, 30278-2, 6873-4, 88530-3, CBCA, 4548-4 #### [facility] ([id number]) [address] [place] [address] 86590 #### HA1C #### [facility] ([id number]) [address], [address] [place] [address] COMPREHENSIVE METABOLIC PANE [facility] 10-26-2023 Albumin [Mass/Vol] 4.3 g/dL Normal 3.2-5.3 [facility] Comment on above: Performed By: #### P INR, 35459-0, CMP, 39243-6, 6873-4, 41732-0, CBCA, 4548-4 #### [facility] ([id number]) [address] [place] [address] 81113 #### HA1C #### [facility] ([id number]) [address], [address] [place] [address] ALP [Catalytic activity/Vol] 73 U/L Normal 39-130 [facility] Comment on above: Performed By: #### P INR, 90302-1, CMP, 27556-9, 6873-4, 97903-2, CBCA, 4548-4 #### [facility] ([id number]) [address] [place] [address] 35846 #### HA1C #### [facility] ([id number]) [address], [address] [place] [address] ALT [Catalytic activity/Vol] 25 U/L Normal 0-40 [facility] Comment on above: Performed By: #### P INR, 50295-8, CMP, 75298-4, 6873-4, 25244-9, CBCA, 4548-4 #### [facility] ([id number]) [address] [place] [address] 37197 #### HA1C #### [facility] ([id number]) [address], [address] [place] [address] Anion gap [Moles/Vol] 10 mmol/L Normal 5-15 [facility] Comment on above: Performed By: #### P INR, 72151-4, CMP, 49004-3, 6873-4, 31079-4, CBCA, 4548-4 #### [facility] ([id number]) [address] [place] [address] 52432 #### HA1C #### [facility] ([id number]) [address], [address] [place] [address] AST [Catalytic activity/Vol] 19 U/L Normal 0-41 [facility] Comment on above: Performed By: #### P INR, 95066-0, CMP, 23651-8, 6873-4, 81287-5, CBCA, 4548-4 #### [facility] ([id number]) [address] [place] [address] 49407 #### HA1C #### [facility] ([id number]) [address], [address] [place] [address] Bilirubin [Mass/Vol] 0.8 mg/dL Normal 0.3-1.2 [facility] Comment on above: Performed By: #### P INR, 91426-4, CMP, 63933-1, 6873-4, 55687-3, CBCA, 4548-4 #### [facility] ([id number]) [address] [place] [address] 73401 #### HA1C #### [facility] ([id number]) [address], [address] [place] [address] Calcium [Mass/Vol] 9.3 mg/dL Normal 8.5-10.5 [facility] Comment on above: Performed By: #### P INR, 03389-6, CMP, 62912-8, 6873-4, 88711-3, CBCA, 4548-4 #### [facility] ([id number]) [address] [place] [address] 04282 #### HA1C #### [facility] ([id number]) [address] [place] [address] Chloride [Moles/Vol] 94 mmol/L Low 98-109 [facility] Comment on above: Performed By: #### P INR, 53899-7, CMP, 34112-9, 6873-4, 64575-7, CBCA, 4548-4 #### [facility] ([id number]) [address] [place] [address] 91952 #### HA1C #### [facility] ([id number]) [address], [address] [place] [address] CO2 [Moles/Vol] 26 mmol/L Normal 22-32 [facility] Comment on above: Performed By: #### P INR, 10534-4, CMP, 91183-1, 6873-4, 28684-2, CBCA, 4548-4 #### [facility] ([id number]) [address] [place] [address] 17666 #### HA1C #### [facility] ([id number]) [address], [address] [place] [address] Creatinine [Mass/Vol] 1.06 mg/dL Normal 0.70-1.20 [facility] Comment on above: Result Comment: METH OD TRACEABLE TO IDMS STANDARD Performed By: #### P INR, 23399-5, CMP, 29658-3, 6873-4, 62519-7, CBCA, 4548-4 #### [facility] ([id number]) [address] [place] [address] 42600 #### HA1C #### [facility] ([id number]) [address], [address] [place] [address] GFR/1.73 sq M.predicted among non-blacks MDRD (S/P/Bld) [Vol rate/Area] 75 mL/min/{1.73_m2} Normal >59 [facility] Comment on above: Result Comment: Reported eGFR is based on the CKD-EPI 2020 equation that does not use a race coefficient. Performed By: #### P INR, 98484-7, CMP, 21843-7, 6873-4, 84932-0, CBCA, 4548-4 #### [facility] ([id number]) [address] [place] [address] 03855 #### HA1C #### [facility] ([id number]) [address], [address] [place] [address] Glucose [Mass/Vol] 453 mg/dL Critically high 65-99 [facility] Comment on above: Performed By: #### P INR, 79706-3, CMP, 68312-7, 6873-4, 59528-6, CBCA, 4548-4 #### [facility] ([id number]) [address] [place] [address] 26987 #### HA1C #### [facility] ([id number]) [address], [address] [place] [address] Potassium [Moles/Vol] 4.5 mmol/L Normal 3.5-5.0 [facility] Comment on above: Performed By: #### P INR, 53551-5, CMP, 20821-1, 6873-4, 53904-8, CBCA, 4548-4 #### [facility] ([id number]) [address] [place] [address] 53905 #### HA1C #### [facility] ([id number]) [address], [address] [place] [address] Protein [Mass/Vol] 7.2 g/dL Normal 6.0-8.0 [facility] Comment on above: Performed By: #### P INR, 72127-2, CMP, 38043-6, 6873-4, 97761-8, CBCA, 4548-4 #### [facility] ([id number]) [address] [place] [address] 13203 #### HA1C #### [facility] ([id number]) [address] [place] [address] Sodium [Moles/Vol] 130 mmol/L Low 134-146 [facility] Comment on above: Performed By: #### P INR, 28718-7, CMP, 97231-7, 6873-4, 80536-8, CBCA, 4548-4 #### [facility] ([id number]) [address] [place] [address] 76367 #### HA1C #### [facility] ([id number]) [address] [place] [address] Urea nitrogen [Mass/Vol] 29 mg/dL High 5-27 [facility] Comment on above: Performed By: #### P INR, 99785-3, CMP, 70237-9, 6873-4, 68047-0, CBCA, 4548-4 #### [facility] ([id number]) [address] [place] [address] 84425 #### HA1C #### [facility] ([id number]) [address] [place] [address] CT BRAIN WO CONTon 3 CT BRAIN [...] Denney MD on 10/26/2023 6:42 PM Normal [facility] DRUG SCREEN, URINEon 023 AMPHETAMINE/METHAMP Negative Normal NEG [facility] Comment on above: Result Comment: AMPH /METH screening cut off = 1000 ng/mL Performed By: #### P INR, 74191-9, CMP, 71442-3, 6873-4, 99094-8, CBCA, 4548-4 #### [facility] ([id number]) [address] [place] [address] #### HA1C #### [facility] ([id number]) [address], [address] [place] [address] BARBITURATES Negative Normal NEG [facility] Comment on above: Result Comment: Elsie iturates screening cut off value = 200 ng/mL Performed By: #### P INR, 49275-4, CMP, 35687-9, 6873-4, 39089-8, CBCA, 4548-4 #### [facility] ([id number]) [address] [place] [id number] #### HA1C #### [facility] ([id number]) [address], [address] [place] [address] BENZODIAZEPINES Negative Normal NEG [facility] Comment on above: Result Comment: James odiazepines screening cut off value = 200 ng/mL Performed By: #### P INR, 33003-7, CMP, 72389-7, 6873-4, 20379-7, CBCA, 4548-4 #### [facility] ([id number]) [address] [place] [address] #### HA1C #### [facility] ([id number]) [address] [place] [address] CANNABINOIDS Negative Normal NEG [facility] Comment on above: Result Comment: Shawn abinoids/THC screening cut off value = 50 ng/mL Performed By: #### P INR, 48003-0, CMP, 48844-3, 6873-4, 38305-3, CBCA, 4548-4 #### [facility] ([id number]) [address] [place] [address] #### HA1C #### [facility] ([id number]) [address], [address] [place] [address] COCAINE METABOLITE Negative Normal NEG [facility] Comment on above: Result Comment: Coca ine screening cut off value = 300 ng/mL Performed By: #### P INR, 68881-9, CMP, 65769-1, 6873-4, 05475-8, CBCA, 4548-4 #### [facility] ([id number]) [address] [place] [address] #### HA1C #### [facility] ([id number]) [address], [address] [place] [address] ECSTASY Negative Normal NEG [facility] Comment on above: Result Comment: Ecst asy screening cut off value = 500 ng/mL This report is intended for use in clinical monitoring or management of patients. Performed By: #### P INR, 20244-2, CMP, 14000-7, 6873-4, 63355-1, CBCA, 4548-4 #### [facility] ([id number]) [address] [place] [address] #### HA1C #### [facility] ([id number]) [address], [address] [place] [address] METHADONE Negative Normal NEG [facility] Comment on above: Result Comment: Meth adone screening cut off value = 300 ng/mL. Performed By: #### P INR, 45874-0, CMP, 00185-7, 6873-4, 22932-2, CBCA, 4548-4 #### [facility] ([id number]) [address] [place] [address] #### HA1C #### [facility] ([id number]) [address] [address] [address], [address] [place] [address] OPIATES Negative Normal NEG [facility] Comment on above: Result Comment: Opia yanira screening cut off value = 300 ng/mL NOTE: This test is used for the detection of codeine, hydrocodone (>1000 ng/mL), morphine and hydromorphone (>900 ng/mL) in urine. Performed By: #### P INR, 72945-2, CMP, 92792-3, 6873-4, 33739-0, CBCA, 4548-4 #### [facility] ([id number]) [address] [place] [address] #### HA1C #### [facility] ([id number]) [address] [facility] [address] [address], [address] [place] [address] OXYCODONE Negative Normal [facility] Comment on above: Result Comment: Oxyc odone screening cut off value = 300 ng/mL NOTE: This test is used for the detection of oxycodone and oxymorphone in urine. Performed By: #### P INR, 62693-2, CMP, 95585-5, 6873-4, 62336-2, CBCA, 4548-4 #### [facility] ([id number]) [address] [place] [address] #### HA1C #### [facility] ([id number]) [address], [address] [place] [address] PHENCYCLIDINE Negative Normal NEG [facility] Comment on above: Result Comment: Phen cyclidine screening cut off value = 25 ng/mL Performed By: #### P INR, 40575-4, CMP, 25076-9, 6873-4, 79481-3, CBCA, 4548-4 #### [facility] ([id number]) [address] [place] [address] 83652 #### HA1C #### [facility] ([id number]) [address], [address] [place] [address] Glucose Glucometer (BldC) [M ass/Vol]on 10-26-2023 Glucose [Mass/Vol] 286 mg/dL High 65-99 [facility] Glucose [Mass/Vol] 385 mg/dL High 65-99 [facility] HA1C CONFIRMATION - NO CHARG Ian 10-26-2023 HbA1c (Bld) [Mass fraction] 15.3 % High <=5.6 [facility] Comment on above: Result Comment: NOTE INTERPRETIVE INFORMATION: Hemoglobin A1c HbA1c values of 5.7-6.4 percent indicate an increased risk for developing diabetes mellitus. HbA1c values greater than or equal to 6.5 percent are diagnostic of diabetes mellitus. For diagnosis of diabetes in individuals without unequivocal hyperglycemia, results should be confirmed by repeat testing. Performed By: #### P INR, 97384-6, CMP, 24873-1, 6873-4, 08283-4, CBCA, 4548-4 #### [facility] ([id number]) [address] [place] [address] 25151 #### HA1C #### [facility] ([id number]) [address], [address] [place] [address] HGB A1C (GLYCO-HGB)on 2022 AVERAGE GLUCOSE >398 Normal [facility] Comment on above: Performed By: #### P INR, 14923-0, CMP, 57632-8, 6873-4, 78244-1, CBCA, 4548-4 #### [facility] ([id number]) [address] [place] [address] 23456 #### HA1C #### [facility] ([id number]) [address] [facility] [address] [facility] [address], [address] [place] [address] HbA1c (Bld) [Mass fraction] % High 4.4-5.6 [facility] Comment on above: Result Comment: NOTE ADA Guidelines Result HgbA1c Normal : less than 5.7 % Prediabetes : 5.7 % to 6.4 % Diabetes : > 6.4 % Use with caution in patients with abnormal hemoglobin variants as the half-life of red blood cells and in vivo glycation rates are affected. Performed By: #### P INR, 91571-4, CMP, 74502-2, 6873-4, 83174-0, CBCA, 4548-4 #### [facility] ([id number]) [address] [place] [address] 02599 #### HA1C #### [facility] ([id number]) [address], [address] [place] [address] HbA1c (Bld) [Mass fraction]o n 10-26-2023 Glucose [Mass/Vol] 392 mg/dL Normal [facility] Comment on above: Result Comment: NOTE Performed By: [facility] [address] [place] [address] Community Development Manager: Aramis Taylor MD, PhD CLIA Number: [id number] Performed By: #### P INR, 76436-7, CMP, 18174-4, 6873-4, 20651-5, CBCA, 4548-4 #### [facility] ([id number]) [address] [place] [address] 56171 #### HA1C #### [facility] ([id number]) [address] [facility], [address] [place] [address] MAGNESIUMon 10-26-2023 Magnesium [Mass/Vol] 1.6 mg/dL Low 1.8-2.6 [facility] Comment on above: Performed By: #### P INR, 29526-4, CMP, 60942-6, 6873-4, 65374-7, CBCA, 4548-4 #### [facility] ([id number]) [address] [place] [address] 10953 #### HA1C #### [facility] ([id number]) [address] [facility] [facility] [address] [address], [address] [place] [address] PROTIME AND INRon 10-26-2023 INR Coag (PPP) [Relative time] 1.0 {INR} Normal 0.8-1.1 [facility] Comment on above: Performed By: #### P INR, 08123-3, CMP, 87200-7, 6873-4, 87751-9, CBCA, 4548-4 #### [facility] ([id number]) [address] [place] [address] 67082 #### HA1C #### [facility] ([id number]) [address], [address] [place] [address] PT Coag (PPP) [Time] 11.4 s Normal 9.8-13.2 [facility] Comment on above: Result Comment: NEW REFERENCE RANGE Performed By: #### P INR, 37065-4, CMP, 72658-2, 6873-4, 48426-9, CBCA, 4548-4 #### [facility] ([id number]) [address] [place] [address] 01601 #### HA1C #### [facility] ([id number]) Critical access hospital[facility], [address] [place] [address] TROPONIN Ion 10-26-2023 Troponin I.cardiac [Mass/Vol] 0.01 ng/mL Normal 0.00-0.04 [facility] Comment on above: Performed By: #### P INR, 46545-6, CMP, 58486-8, 6873-4, 47496-5, CBCA, 4548-4 #### [facility] ([id number]) [address] [place] [address] 27141 #### HA1C #### [facility] ([id number]) [address] [place] [address], [address] [place] [address] URN MACROSCOPIC NURon 2022 BILIRUBIN ALLYN Negative Normal NEG [facility] Comment on above: Performed By: #### P INR, 10430-7, CMP, 01460-5, 6873-4, 16843-2, CBCA, 4548-4 #### [facility] ([id number]) [address] [place] [address] 06110 #### HA1C #### [facility] ([id number]) [address] [place] [address], [address] [place] [address] BLOOD/HGB ALLYN Trace Abnormal NEG [facility] Comment on above: Performed By: #### P INR, 63735-5, CMP, 76296-6, 6873-4, 90203-4, CBCA, 4548-4 #### [facility] ([id number]) [address] [place] [address] 42234 #### HA1C #### [facility] ([id number]) [address] [place] [address], [address] [place] [address] GLUCOSE ALLYN >=1000 Abnormal NEG [facility] Comment on above: Performed By: #### P INR, 15641-6, CMP, 93485-8, 6873-4, 53285-6, CBCA, 4548-4 #### [facility] ([id number]) [address] [place] [address] 48728 #### HA1C #### [facility] ([id number]) [address] [place] [address] KETONES ALLYN 40 mg/dL Abnormal NEG [facility] Comment on above: Performed By: #### P INR, 35967-5, CMP, 74617-9, 6873-4, 09660-6, CBCA, 4548-4 #### [facility] ([id number]) [address] [place] [address] 86148 #### HA1C #### [facility] ([id number]) [address] [place] [address] LEUKOCYTE ESTERASE ALLYN Negative Normal NEG [facility] Comment on above: Performed By: #### P INR, 66266-3, CMP, 41345-1, 6873-4, 01951-2, CBCA, 4548-4 #### [facility] ([id number]) [address] [place] [address] 25584 #### HA1C #### [facility] ([id number]) [address] [place] [address] NITRITE ALLYN Negative Normal NEG [facility] Comment on above: Performed By: #### P INR, 14580-8, CMP, 94125-9, 6873-4, 99040-5, CBCA, 4548-4 #### [facility] ([id number]) [address] [place] [address] 40889 #### HA1C #### [facility] ([id number]) [address] [place] [address] PH ALLYN 5.5 Normal 5.0-8.5 [facility] Comment on above: Performed By: #### P INR, 80701-4, CMP, 39919-8, 6873-4, 74027-9, CBCA, 4548-4 #### [facility] ([id number]) [address] [place] [address] 73929 #### HA1C #### [facility] ([id number]) [address] [place] [address], [address] [place] [address] PROTEIN ALLYN Negative Normal NEG [facility] Comment on above: Performed By: #### P INR, 46103-5, CMP, 05292-4, 6873-4, 78820-7, CBCA, 4548-4 #### [facility] ([id number]) [address] [place] [address] 21425 #### HA1C #### [facility] ([id number]) [address] [place] [address], [address] [place] [address] SPECIFIC GRAVITY ALLYN 1.010 Normal 1.003-1.035 [facility] Comment on above: Performed By: #### P INR, 41743-3, CMP, 06716-7, 6873-4, 95133-3, CBCA, 4548-4 #### [facility] ([id number]) [address] [place] [address] 17845 #### HA1C #### [facility] ([id number]) [address] [place] [address], [address] [place] [address] UROBILINOGEN ALLYN 0.2 eu/dL Normal <1.1 [facility] Comment on above: Performed By: #### P INR, 65768-2, CMP, 18782-9, 6873-4, 20400-5, CBCA, 4548-4 #### [facility] ([id number]) [address] [place] [address] 90795 #### HA1C #### [facility] ([id number]) [address] [place] [address], [address] [place] [address] VENOUS BLOOD GASon 3 MICHELLE'S TEST Normal [facility] Comment on above: Performed By: #### V BG #### [facility] ([id number]) [address] [place] [address] Base excess Calc (Bld) [Moles/Vol] 0.0 mmol/L Normal 0.0-2.0 [facility] Comment on above: Performed By: #### V BG #### [facility] ([id number]) [address] [place] [address] 69[address] Body temperature 98.6 [degF] Normal 37.0 [facility] Comment on above: Performed By: #### V BG #### [facility] ([id number]) [address] [place] [address] HCO3 (Bld) [Moles/Vol] 25.3 mmol/L High 20.0-24.0 [facility] Comment on above: Performed By: #### V BG #### [facility] ([id number]) [address] [place] [address] 82460 Oxygen saturation in Blood 73.0 % Low >80.0 [facility] Comment on above: Performed By: #### V BG #### [facility] ([id number]) [address] [place] [address] OXYGEN SOURCE [employer] Normal [facility] Comment on above: Performed By: #### V BG #### [facility] ([id number]) [address] [place] [address] 37785 PCO2, VENOUS 41.3 MMHG Normal 35-50 [facility] Comment on above: Performed By: #### V BG #### [facility] ([id number]) [address] [place] [address] 84565 PH, VENOUS 7.396 Normal 7.320-7.420 [facility] Comment on above: Performed By: #### V BG #### [facility] ([id number]) [address] [place] [address] PO2, VENOUS 39 MMHG Normal 30-50 [facility] Comment on above: Performed By: #### V BG #### [facility] ([id number]) [address] [place] [address] 09817 SAMPLE SITE N/A Normal [facility] Comment on above: Performed By: #### V BG #### [facility] ([id number]) [address] [place] [address] 40485 SAMPLE TYPE VENOUS Normal [facility] Comment on above: Performed By: #### V BG #### [facility] ([id number]) [address] [place] [address] 15667 XR CHEST 1 VWon 10-26-2023 XR CHEST [...] Keyes MD on 10/26/2023 6:36 PM Normal [facility] aPTT Coag (PPP) [Time]on aPTT Coag (Bld) [Time] 34 s Normal 26-37 [facility] Comment on above: Result Comment: NEW REFERENCE RANGE Performed By: #### P INR, 57194-4, CMP, 62710-4, 6873-4, 71600-0, CBCA, 4548-4 #### [facility] ([id number]) [address] [facility] [place] [address] #### HA1C #### [facility] ([id number]) [address] [facility] [address] [facility] [place] [address] Vital Signs Date Time Vital Sign Value Performing Clinician Facility 03-31-2024 10:20-0400 Body height 180.34 cm [facility] 03-31-2024 10:20-0400 Body mass index (BMI) [Ratio] 34.9 kg/m2 [facility] 03-31-2024 10:20-0400 Body weight 113.53 kg [facility] 03-31-2024 10:20-0400 Diastolic blood pressure 73 mm[Hg] [facility] 03-31-2024 10:20-0400 Heart rate 79 /min [facility] 03-31-2024 10:20-0400 Respiratory rate 16 /min [facility] 03-31-2024 10:20-0400 Systolic blood pressure 149 mm[Hg] [facility] 03-26-2024 10:56-0400 Body height 180.34 cm [facility] 03-26-2024 10:56-0400 Body mass index (BMI) [Ratio] 34.9 kg/m2 [facility] 03-26-2024 10:56-0400 Body weight 113.62 kg [facility] 03-26-2024 10:56-0400 Diastolic blood pressure 81 mm[Hg] [facility] 03-26-2024 10:56-0400 Heart rate 86 /min [facility] 03-26-2024 10:56-0400 Respiratory rate 20 /min [facility] 03-26-2024 10:56-0400 Systolic blood pressure 157 mm[Hg] [facility] 01-23-2024 10:33-0400 Body height 180.34 cm [facility] 01-23-2024 10:33-0400 Body mass index (BMI) [Ratio] 36.1 kg/m2 [facility] 01-23-2024 10:33-0400 Body weight 117.65 kg [facility] 01-23-2024 10:33-0400 Diastolic blood pressure 69 mm[Hg] [facility] 01-23-2024 10:33-0400 Heart rate 71 /min [facility] 01-23-2024 10:33-0400 Respiratory rate 20 /min [facility] 01-23-2024 10:33-0400 Systolic blood pressure 159 mm[Hg] [facility] 12-30-2023 10:35-0500 Body height 177.8 cm Malorie Yeboah MD Work Phone: [facility] 12-30-2023 10:35-0500 Body mass index (BMI) [Ratio] 35.01 kg/m2 Malorie Yeboah MD Work Phone: [facility] 12-30-2023 10:35-0500 Body weight 110.68 kg Malorie Yeboah MD Work Phone: [facility] 12-11-2023 11:41-0500 Body height 177.8 cm Alexis Rojas MD Work Phone: [facility] 12-11-2023 11:41-0500 Body mass index (BMI) [Ratio] 35.01 kg/m2 Alexis Rojas MD Work Phone: [facility] 12-11-2023 11:41-0500 Body weight 110.68 kg Alexis Rojas MD Work Phone: [facility] 12-11-2023 11:41-0500 Diastolic blood pressure 73 mm[Hg] Alexis Rojas MD Work Phone: [facility] 12-11-2023 11:41-0500 Heart rate 90 /min Alexis Rojas MD Work Phone: [facility] 12-11-2023 11:41-0500 Systolic blood pressure 126 mm[Hg] Alexis Rojas MD Work Phone: [facility] 11-26-2023 10:45-0500 Body height 180.34 cm Vinnie Garza Other [facility] 11-26-2023 10:45-0500 Body mass index (BMI) [Ratio] 35.31 kg/m2 Vinnie Ball Other [facility] [employer] Other 11-26-2023 10:45-0500 Body weight 114.85 kg Vinnie Ball Other [facility] [employer] Other 11-26-2023 10:45-0500 Body weight 114.84 kg [facility] 11-26-2023 10:45-0500 Diastolic blood pressure 80 mm[Hg] Vinnie Garza Other [facility] 11-26-2023 10:45-0500 Respiratory rate 16 /min Vinnie Garza Other [facility] [employer] Other 11-26-2023 10:45-0500 Systolic blood pressure 132 mm[Hg] Vinnie Garza Other [facility] Encounters Encounter Date Encounter Type Care Provider Facility Start: 03-31-2024 End: 03-31-2024 ambulatory [facility] Work Phone: Start: 03-31-2024 End: 03-31-2024 Patient encounter procedure [facility] Work Phone: Start: 03-29-2024 ambulatory [facility] Start: 03-26-2024 End: 03-26-2024 ambulatory [facility] Work Phone: Start: 03-26-2024 End: 03-26-2024 Patient encounter procedure [facility] Work Phone: Start: 02-13-2024 End: 03-27-2024 ambulatory [facility] Start: 02-12-2024 End: 02-12-2024 ambulatory MALORIE [facility] Start: 02-04-2024 End: 02-04-2024 ambulatory JASON RODRIGUEZ Not Available Start: 01-23-2024 End: 01-23-2024 ambulatory [facility] Work Phone: Start: 01-23-2024 End: 01-23-2024 Patient encounter procedure [facility] Work Phone: Start: 12-30-2023 End: 12-30-2023 ambulatory MALORIE YEBOAH [facility] Start: 12-30-2023 End: 12-30-2023 Office outpatient new 30 minutes Malorie Yeboah MD Work Phone: [facility] Comment on above: Arthritis of right k nee (Primary Dx); Right knee pain, unspecified chronicity Start: 12-11-2023 End: 12-11-2023 ambulatory [facility] Start: 12-11-2023 End: 12-11-2023 Office outpatient visit 25 minutes Alexis Rojas MD Work Phone: [facility] Comment on above: Sequelae, post-strok e (Primary Dx); Cerebrovascular accident (CVA) due to thrombosis of precerebral artery ([facility]); Type 2 diabetes mellitus with hyperglycemia, with long-term current use of insulin ([facility]); Transient alteration of awareness; Mixed hyperlipidemia; Blurred vision; Gait instability Start: 12-01-2023 End: 12-01-2023 ambulatory Vinnie Garza Other [facility] Other Start: 12-01-2023 Telephone encounter Vinnie SUAZO [facility] Start: 11-26-2023 End: 11-26-2023 ambulatory Vinnie Greg Other [facility] Other Start: 11-26-2023 Office outpatient vi sit 25 minutes Vinnie Garza [facility] Start: 11-26-2023 Telephone encounter Vinnie SUAZO [facility] Start: 11-26-2023 End: 11-26-2023 Patient encounter procedure [facility] Start: 11-17-2023 Telephone encounter [facility] Start: 11-05-2023 End: 11-05-2023 ambulatory VINNIE GARZA [facility] Start: 10-31-2023 Orders Only Alysha Gilbert RN [facility] Comment on above: Cerebrovascular acci dent (CVA) due to thrombosis of precerebral artery (CMS-HCC) (Primary Dx); Other cerebrovascular vasospasm and vasoconstriction Start: 10-28-2023 End: 10-30-2023 ambulatory [facility] Start: 10-28-2023 End: 10-30-2023 ambulatory [facility] Start: 10-28-2023 End: 10-30-2023 ambulatory HAMMAD Ocasio [facility] Start: 10-26-2023 End: 10-30-2023 Emergency department patient visit [facility] Start: 10-26-2023 End: 10-29-2023 Evaluation and management of inpatient [facility] Start: 05-09-[address] VINNIE Mcgraw ty:H1 [...] Screening Adult BMI Screen ing [facility] Start: 12-29-2024 Tobacco Screening Tobacco Screening [facility] Start: 12-11-2024 Adult BMI Screening Adult BMI Screen ing [facility] Start: 12-11-2024 Depression Screening Depression Scre ening [facility] Start: 12-11-2024 Tobacco Screening Tobacco Screening [facility] Start: 10-29-2024 Adult BMI Screening Adult BMI Screen ing [facility] Start: 10-26-2024 Tobacco Screening Tobacco Screening [facility] Start: 03-11-2024 End: 03-11-2024 Patient encounter procedure 03/11/2024 3:30 PM EDT Office Visit [facility] [address] [place] [phone] Alexis Rojas MD [address] [place] [address], [address] [place] [address] [facility] Start: 12-11-2023 End: 12-11-2023 Patient encounter procedure 12/11/2023 11:30 AM EST Office Visit [facility] [address] [place] [phone] Alexis Rojas MD [address] [place] [address], [address] [place] [phone] [facility] Start: 12-04-2023 End: 12-04-2023 Patient encounter procedure 12/04/2023 9:00 AM EST Office Visit [facility] [address] [place] [address] [phone] Neo Easton MD [address] [place], [place] [phone] [facility] Start: 10-31-2023 End: 10-31-2024 Event Monitor (In Office) [facility] [employer] Work Phone: Comment on above: Expected: 10/31/2023 , Expires: 10/31/2024 Start: 06-27-2023 Influenza vaccination Influenza Vacc ine [facility] Start: 2018 Fall Risk Screening Fall Risk Screen ing [facility] Start: 05-02-2017 Urine screening for protein Urine Microalbumin [facility] Start: 2003 Administration of varicella zoster vaccine Zoster (Shingles) Vaccine (1 of 2) [facility] Start: 1972 DTaP,Tdap and Td Vaccines (1 - Tdap) DTaP,Tdap and Td Vaccines (1 - Tdap) Apparent Start: 1971 Adult BMI Follow Up Plan [facility] Start: 1971 Diabetic foot examination [facility] Start: 1965 Depression Screening Depression Scre ening Apparent Start: 1953 Glaucoma screening Diabetic Op [facility]thalmology [facility] Start: 1953 Medicare Annual Well ness Visit Medicare Annual Wellness Visit Apparent Start: 1953 Tobacco Counseling Tobacco Counselin g Apparent End: 12-29-2024 Large Joint Injection/Arthrocentesis - PA Large Joint Injection/Arthrocentesi s - PA Procedures Routine Right knee pain, unspecified chronicity Arthritis of right knee 1 Occurrences starting 12/30/2023 until 12/29/2024 [employer] Work Phone: Comment on above: 1 Occurrences starti ng 12/30/2023 until 12/29/2024 End: 12-29-2024 Nicotine screen, urine Nicotine screen, urine Lab Routine Arthritis of right knee 1 Occurrences starting 12/30/2023 until 12/29/2024 Apparent Comment on above: 1 Occurrences starti ng 12/30/2023 until 12/29/[address] [facility] Immunizations Immunization Date Immunization Notes Care Provider Fortino rouse 07-08-2018 influenza virus vaccine, split virus (incl. purified surface antigen) Vinnie Garza Other [facility] Other 07-08-2018 influenza virus vaccine, unspecified formulation [facility] Payers Date Payer Category Payer Medicare [employer] MEDICARE A ETNA MEDICARE PLAN (PPO) [id number] 2021-Present [phone] [address] [place] [address] [id number] 2021 Medicare [id number] 1961 Self-pay 1953 Unknown [id number] 2.16.840.1.986917.3.579.2.593 1953 Unknown [id number] 2.16.840.1.618688.3.579.2.593 1953 Unknown [id number] 2.16.840.1.871007.3.579.2.1286 1953 Unknown [id number] 2.16.840.1.812613.3.579.2.1259 1953 Unknown [id number] 2.16.840.1.292085.3.579.2.1286 1953 Unknown [id number] 2.16.840.1.474056.3.579.2.1286 1953 Unknown [id number] 2.16.840.1.230972.3.579.2.1286 1953 Unknown [id number] 2.16.840.1.107349.3.579.2.1286 1953 Unknown [id number] 2.16.840.1.733239.3.579.2.1286 1953 Unknown [id number] 2.16.840.1.024913.3.579.2.1286 1953 Unknown [id number] 2.16.840.1.555875.3.579.2.1286 1953 Unknown [id number] 2.16.840.1.709917.3.579.2.1286 1953 Unknown [id number] 2.16.840.1.510183.3.579.2.1286 1953 Unknown [id number] 1955 Unknown [id number] 1955 Unknown [id number] 1955 Unknown [id number] 1955 Unknown [id number] Medicare [id number] Unknown [id number] Social History Date Type Detail Facility Start: 10-26-2023 Tobacco smoking stat [facility] Smokes tobacco daily [facility] History of tobacco use Cigarette Smoker P [facility] Start: 10-26-2023 Tobacco use and exposure Smoke less tobacco non-user [facility] Start: 10-26-2023 End: 12-30-2023 Alcohol intake Ex-drinker (finding) [facility] Start: 12-07-2020 End: 10-26-2023 History of Social function [facility] Start: 12-07-2020 End: 10-26-2023 Tobacco use panel [facility] Housing Instability Unknown [facility] Start: 1955 Sex Assigned At Not on file P [facility] Start: 1955 Sex Assigned At Male F [facility] Goals Date Patient Goal Desired Activity /State [...] note were not included. Cesar Rivera 1955 [id number] Last encounter with me: Visit date not [...] Medical History: Diagnosis Date Arthritis Cataract Diabetes ([facility]) Diabetes mellitus type 2, controlled ([facility]) Fractures Past Surgical History: Procedure Laterality Date [...] of the aforementioned history prepared by the [place] practice provider, and I personally performed the [...] hip xrays.. Malorie Yeboah MD Adult Reconstruction [facility] [address] [place] [address], [address] W: [phone] F: [phone] documented in this encounter [facility] 12-11-2023 History of Present illness Narrative Reason [...] Medical History: Diagnosis Date Arthritis Cataract Diabetes ([facility]) Diabetes mellitus type 2, controlled ([facility]) Fractures Past Surgical History Past Surgical History: [...] hyperglycemia, with long-term current use of insulin ([facility]) Cerebrovascular accident (CVA) due to thrombosis ([facility]) Mixed hyperlipidemia Sequelae, post-stroke Gait instability Status [...] in 3 months. 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 Sincerely, Your Patient Services [facility] Diagnosis Cerebrovascular accident (CVA) due to thrombosis of precerebral artery ([facility])- Primary Other cerebrovascular vasospasm and vasoconstriction [facility] Diagnosis Sequelae, post-stroke- Primary Cerebrovascular accident (CVA) due to thrombosis of precerebral artery ([facility]) Type 2 diabetes mellitus with hyperglycemia, with long-term current use of insulin ([facility]) Transient alteration of awareness Mixed hyperlipidemia Blurred vision Other specified visual disturbances Gait instability Abnormality of gait [facility] Diagnosis Arthritis of right knee- Primary Right knee pain, unspecified chronicity Right knee pain, unspecified chronicity [facility] Diagnosis Onset Date Resolution Status Cerebral atherosclerosis acu te Cigarette nicotine dependence without complication acute Hypercholesterolemia acute Primary hypertension acute Type 2 diabetes mellitus with hyperglycemia [facility] Work Phone: Evaluation note* Diagnosis Onset Date Resolution Status Cerebral atherosclerosis acu te Cigarette nicotine dependence without complication acute Hypercholesterolemia acute Primary hypertension acute Primary osteoarthritis of right knee acute Type 2 diabetes mellitus with hyperglycemia acute Cerebral atherosclerosis acu te Cigarette nicotine dependence without complication acute Hypercholesterolemia acute Primary hypertension acute Type 2 diabetes mellitus with hyperglycemia acute [facility] Work Phone: Evaluation note* Diagnosis Onset [...] Type 2 diabetes mellitus with hyperglycemia acute [facility] Work Phone: History general Narrative - Reported* Type Description Date Medical History Cerebral atherosclerosis Medical History Hypercholesterolemia Medical History Primary hypertension Medical History Cigarette nicotine dependence wi thout complication Surgical History Tonsillectomy Surgical History Right Shoulder Surgery Surgical History Left TKA 2010 Surgical History Right Knee Arthroscopy x2 Surgical History 2: cataracts Surgical History ORIF Right Wrist Hospitalization History see surgical history [facility] Other InstructionsNot on filedocumented in this encounter Ex[facility] SystemInstructionsNot on filedocumented in this encounter [facility] SystemInstructionsNot on filedocumented in this encounter [facility] SystemReason for visit NarrativeDiabetic education/XR results [facility] Other Summary Purpose Family History Relationship Condition [...] Procedures Event Monitor (In Office) Kong Gallegos, NANCY-PHARMACEUTICAL SCIENTIST [address] [place] [address] [address] [place], [place] [id number] Referral ID Status Reason Start Date Expiration Date V isits Requested Visits Authorized [id number] Pending Review 10/31/2023 10/30/2024 1 1 Specialty Diagnoses / Procedures Referred By Contac t Referred To Contact Rehabilitation Diagnoses Cerebrovascular accident (CVA) due to thrombosis of precerebral artery (CMS-HCC) Sequelae, post-stroke Gait instability Alexis Rojas MD [address] [place] [address] Referral ID Status Reason Start Date Expiration Date Visits Requested Visits Authorized [id number] Pending Review Specialty Services Required 12/11/2023 12/10/2024 1 1 Specialty Diagnoses / Procedures Referred By Contac t Referred To Contact Rehabilitation Diagnoses Arthritis of right knee Malorie Yeboah MD [address] [place] [address] Referral ID Status Reason Start Date Expiration Date Visits Requested Visits Authorized [id number] Pending Review Specialty Services Required 12/30/2023 12/29/2024 1 1 Specialty Diagnoses / Procedures Referred By Contac t Referred To Contact Diagnoses Right knee pain, unspecified chronicity Arthritis of right knee Procedures Large Joint Injection/Arthrocentesis - [place] Malorie Yeboah MD [address] [place] [address] [facility] [address] [place] [address] Referral ID Status Reason Start Date Expiration Date V isits Requested Visits Authorized [id number] Pending Review 12/30/2023 12/29/2024 1 1 Chief [...] section and content) DATE CREATED AUTHOR 05/16/2022 [facility] DATE CREATED AUTHOR AUTHOR'S ORGANIZ ATION 11/02/2023 [facility] DATE CREATED AUTHOR AUTHOR'S ORGANIZ ATION 02/05/2024 [facility] DATE CREATED AUTHOR AUTHOR'S ORGANIZ ATION 02/13/2024 [facility] DATE CREATED AUTHOR AUTHOR'S ORGANIZ ATION 03/29/2024 [facility] Care Teams (unrecognized sec tion and content) Dock Guard Relationship Specialty Start Date End Date Vinnie Garza DO [address] [place] [address] PCP - General Internal Medicine 10/26/23 Dock Guard Relationship Specialty Start Date End Date Vinnie Garza DO [address] [place] [address] PCP - General Internal Medicine 10/26/23 Dock Guard Relationship Specialty Start Date End Date Vinnie Garza DO [address] [place], [place] [id number] PCP - General Internal Medicine 10/26/23 Dock Guard Relationship Specialty Start Date End Date Vinnie Garza DO [address] [place] [address] PCP - General Internal Medicine 10/26/23 Team [...] BE BASED ON THE PRIMARY CLINICAL RECORDS. [employer] provides no warranty or guarantee of the accuracy or completeness of information in this document.
[2024-04-01 08:20] VITALS: BP 172/79
[2024-04-01] MEDS: LOSARTAN POTASSIUM 25 MG TABLET PO (08:20)
[2024-04-01] MEDS: INSULIN ASPART 300 UNIT/3 ML PEN 15 UNIT SUBQ ×2 (08:21→12:01)
[2024-04-01 08:25] VITALS: BP 172/79; PULSE 74; TEMP 36.3; O2SAT 94
--- NOTE | 2024-04-01 10:35 | CM.NOTE ---
Rounds made with Dr. Lamb. Pt with recent fall and injury to L knee. Pt lives alone and uses walker. To be seen by PT/OT to determine discharge needs. Dr. Lamb to discuss care with podiatry and possible discharge later today.
--- NOTE | 2024-04-01 10:44 | SWNOTE1 ---
SW met with pt to discuss dc needs. Pt live at home by himself. Pt's sister in room during assessment. Pt's sister answers several questions and she does assist pt at the home and takes him to doctor's visits/outpt therapy/grocery store. Pt uses a walker at home and a walking stick. Pt's sister voiced Dr. Garza told him not to use the walking stick anymore and she has a cane with 4 prongs for him to use at home. Pt does have 2 steps to get in to the home. Pt's sister stated he is not allowed to go down the basement steps anymore and she is going to do his laundry for him. Pt is going to outpt therapy at [facility] right now and he would like to resume this at discharge. Pt and sister did ask about Dr. Hsu coming to see him. At this time nursing was coming in to speak with pt and nursing updated pt and sister about Dr. Hsu. This consult was done yesterday. At this time pt and sister had no further questions for SW. SW to follow as needed. Medicare Outpatient Observation Notice reviewed and discussed with patient. Pt. verbalized understanding and signed the form. Original given to patient and copy placed in patient?s chart.
--- NOTE | 2024-04-01 11:30 | PM.DS1 ---
DS: Providers Provider Date of admission: 03/31/24 16:58 Primary care physician: Vinnie Garza DO Admitting clinician: Shaikh Zainab Attending physician on admission: Shaikh Zainab Consults: 03/31/24 15:52 Consult to Orthopedic Surgery Routine Consulting Provider: Eduar Hsu Reason For Exam: Reason for consultation: knee swelling Has provider been notified: Yes 03/31/24 15:57 Consult to Orthopedics Routine Consulting Provider: Eduar Hsu Reason for consultation: bursitis Occupational Therapy Eval and Treat Routine Reason for consultation: Ambulatory dysfunction/weakness Physical Therapy Eval and Treat Routine Reason for consultation: Ambulatory dysfunction/weakness Attending physician on discharge: Shaikh Zainab Discharging clinician: Shaikh Zainab Anticipated date of discharge: 04/01/24 DS: Diagnosis Discharge Diagnosis (1) Cellulitis: Assessment and plan: Minimal erythema/pain on exam today. Was treated with oral vancomycin/zosyn. Used doxycycline as outpatient with no improvement. D/c on oral bactrim DS. Qualifiers: Laterality: left Site of cellulitis: extremity Site of cellulitis of extremity: lower extremity Qualified Code(s): L03.116 - Cellulitis of left lower limb (2) Hematoma: Assessment and plan: From recent fall, conservative measures. Outpatient f/u with orthopedics. (3) DM2 (diabetes mellitus, type 2): Assessment and plan: C/w home medications. 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 Qualifiers: Laterality: bilateral Osteoarthritis location: knee Osteoarthritis type: primary Qualified Code(s): M17.0 - Bilateral primary osteoarthritis of knee (5) HTN (hypertension): Assessment and plan: C/whome meds Qualifiers: Hypertension type: primary hypertension Qualified Code(s): I10 - Essential (primary) hypertension (6) Hyperlipidemia: Qualifiers: Hyperlipidemia type: unspecified Qualified Code(s): E78.5 - Hyperlipidemia, unspecified DS: Summary Hospital Course Hospital Course: 68-year-old male patient referred to ED by his PCP due to left lower extremity cellulitis that failed outpatient treatment with oral doxycycline. The patient fell in [employer] on 03/21/2024 landing on his left knee that had a total knee arthroplasty in the past. He subsequently developed a blister on the patella that ruptured on its own. He followed up with his PCP the following day and was placed on doxycycline. He returned to his PCP office on 03/31/24 and the entire left lower extremity from above the knee to the toes was swollen with redness, tenderness, and warmth to the suprapatellar and harrison areas. Workup in the ED revealed hypertension (174/73), and unremarkable labs without leukocytosis or lactic acidosis. XR and CT LE showed no fracture/dislocation but fluid collection in prepatellar region c/w bursitis vs hematoma. A venous Doppler was negative for DVT. Patient was being admitted to the hospitalist service in observation for IV antibiotics due to failed outpatient treatment, and specialty orthopedic surgery consultation. He was treated with IV vanc/zosyn with considerable improvement in erythema/swelling that is more or less resolved now except for localized prepatellar swelling that is likely a hematoma as per orthopedic consultation. Patient denies pain and participated in PT and is at his baseline. Stable for discharge on oral bactirm DS, will recommend following up with orthopedic surgery. Status at Discharge Functional status at discharge: uses cane/walker Overall status at discharge: patient is back to baseline Time Spent with Patient Time attestation: Total time spent providing and/or coordinating discharge services: Time spent: greater than 30 minutes Exam Constitutional Vital Signs, click to edit/add: Last Vital Signs Temp 97.3 F L 04/01/24 08:25 Pulse 74 04/01/24 08:25 Resp 20 04/01/24 08:25 BP 172/79 H 04/01/24 08:25 Pulse Ox 94 L 04/01/24 08:25 O2 Del Method Room Air 04/01/24 08:25 Documenting provider has reviewed patient's vital signs: yes Common normals: no apparent distress and oriented x3 General appearance: cooperative HENMT Common normals: normocephalic and head/scalp atraumatic Head and scalp: normocephalic and atraumatic Eye Common normals: conjunctivae normal and no scleral icterus Conjunctiva: conjunctiva(e) normal Respiratory Common normals: normal respiratory effort and clear to auscultation bilaterally Effort & inspection: able to speak in complete sentences Auscultation: clear to auscultation bilaterally Cardio Common normals: regular rate, S1 normal heart sound and S2 normal heart sound Rate: regular rate Heart sounds: S1 normal and S2 normal GI Common normals: Normal to inspection, nondistended, normoactive bowel sounds present, soft to palpation, non-tender and no hepatosplenomegaly Palpation: soft and no hepatosplenomegaly Extremity Common normals: no clubbing, cyanosis or edema Other: left knee - prepatellar soft tissue swelling with fluctuance. No pain/tenderness. Superficial scab noted. Neuro Common normals: oriented x3, moves all extremities and no focal motor deficits Psych Common normals: mental status grossly normal, denies hallucinations, denies homicidal ideation and denies suicidal ideation DS: Data Data Completed and Pending Labs on day of discharge: Labs from last 24 hours 04/01/24 04/01/24 03/31/24 04:36 01:22 17:08 WBC 4.6 RBC 4.25 L Hgb 12.6 L Hct 38.2 L MCV 89.9 MCH 29.6 MCHC 33.0 RDW 13.6 Plt Count 210 MPV 9.2 L Neut % (Auto) 50.8 Lymph % (Auto) 36.0 [facility] % (Auto) 7.7 Eos % (Auto) 4.4 Baso % (Auto) 0.9 Neut # (Auto) 2.3 Lymph # (Auto) 1.6 [facility] [place] [facility] # (Auto) 0.4 Eos # (Auto) 0.2 Baso # (Auto) 0.0 Abs Immat Gran (auto) 0.01 Imm/Tot Granulo (auto) 0.2 Sodium 140 Potassium 3.9 Chloride 105 Carbon Dioxide 27.1 Anion Gap 11.8 BUN 15.0 Creatinine 0.69 L Est GFR ( Amer) >60 Est GFR (Non-Af Amer) >60 BUN/Creatinine Ratio 21.7 Glucose 105 Lactate Calcium 8.7 Total Bilirubin 0.5 AST 12 L ALT 19 Alkaline Phosphatase 73 Total Protein 6.2 L Albumin 3.4 Globulin 2.8 Albumin/Globulin Ratio 1.2 POC Glucose 64 L 122 H 03/31/24 03/31/24 11:45 11:34 WBC 5.2 RBC 4.45 L Hgb 13.5 L Hct 39.4 L MCV 88.5 MCH 30.3 MCHC 34.3 RDW 13.4 Plt Count 224 MPV 8.9 L Neut % (Auto) 51.7 Lymph % (Auto) 33.9 [facility] [place] [facility] % (Auto) 8.5 Eos % (Auto) 4.5 Baso % (Auto) 1.4 Neut # (Auto) 2.7 Lymph # (Auto) 1.8 [facility] [place] [facility] # (Auto) 0.4 Eos # (Auto) 0.2 Baso # (Auto) 0.1 Abs Immat Gran (auto) 0.00 Imm/Tot Granulo (auto) 0.0 Sodium 139 Potassium 4.0 Chloride 101 Carbon Dioxide 28.8 Anion Gap 13.2 BUN 18.0 Creatinine 0.79 Est GFR ( Amer) >60 Est GFR (Non-Af Amer) >60 BUN/Creatinine Ratio 22.8 Glucose 74 Lactate 1.1 Calcium 8.9 Total Bilirubin 0.6 AST 12 L ALT 22 Alkaline Phosphatase 81 Total Protein 7.1 Albumin 3.8 Globulin 3.3 Albumin/Globulin Ratio 1.2 POC Glucose Discharge Plan Discharge Disposition: Home, Self-Care Discharge Medications: New sulfamethoxazole-trimethoprim [Bactrim DS] 800-160 mg tablet 1 tab PO BID Qty: 20 0RF Continued meloxicam 15 mg tablet 15 mg PO .qd aspirin 81 mg tablet,delayed release (DR/EC) 81 mg PO .QD losartan 25 mg tablet 25 mg PO .qd (DME) insulin syringe-needle U-100 1 mL 30 gauge X 7/16 syringe MISCELLANEOUS insulin aspart U-100 [Novolog FlexPen U-100 Insulin] 100 unit/mL (3 mL) insulin pen 15 unit SUBCUT TID insulin glargine [Lantus Solostar U-100 Insulin] 100 unit/mL (3 mL) insulin pen 15 unit SUBCUT .QHS (DME) FreeStyle Kathie 2 Sensor Kit MISCELLANEOUS (DME) FreeStyle Kathie 2 Duff Misc MISCELLANEOUS mupirocin 2 % ointment 1 applic TOPICAL BID Rx Instructions: APPLY TO AFFECTED AREA TWO TIMES DAILY FOR TEN (10) DAYS. STARTED 03-26-24 Discontinued doxycycline hyclate 100 mg capsule 100 mg PO Q12H Activity: increase activity as tolerated Diet: advance to your usual diet Print Language: Yoruba Forms: Portal Instructions Follow Up Appointments: April 09 @ 11:30am with Dr. Garza [phone] Follow up with Orthopedic surgery 1-2 weeks
[2024-04-01 11:53] VITALS: O2SAT 96
[2024-04-01 15:14] VITALS: BP 171/79; PULSE 60; TEMP 36.4; O2SAT 95
== END 2024-04-01 16:25 | disposition home or self-care (01) ==
LOC: ER 16:32 → MS 04-01 06:58
PROVIDERS: Admitting Provider Internal Medicine; Emergency Provider Emergency Medicine; PCP Internal Medicine; Visit Provider Internal Medicine
DX: E11.628 Type 2 diabetes mellitus with other skin complications (principal); L03.116 Cellulitis of left lower limb; S80.02XA Contusion of left knee, initial encounter; M19.90 Unspecified osteoarthritis, unspecified site; I10 Essential (primary) hypertension; E78.5 Hyperlipidemia, unspecified; Z79.899 Other long term (current) drug therapy; Z79.4 Long term (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 insulin; Z96.652 Presence of left artificial knee joint; Z91.81 History of falling; F17.200 Nicotine dependence, unspecified, uncomplicated
CPT/HCPCS: 36415; 73564; 73701; 80053; 82948; 83605; 85025; 87040; 93971; 94761; 96365; 96366; 96367; 96372; 96375; 96376; 97162; 97165; 99285; G0378; J3370; Q9967

== ENCOUNTER 2024-06-03 11:15 | Outpatient (REF) | payer MEDICARE, SELFPAY ==
[2024-06-03 12:19] LABS: Bilirubin Urine NEGATIVE (NEGATIVE); Blood Urine LARGE (NEGATIVE); Clarity Urine CLEAR (CLEAR); Color Urine YELLOW (YELLOW); Glucose Urine UA 100 mg/dL (NEGATIVE); Ketones Urine NEGATIVE (NEGATIVE); Leukocyte Esterase Urine NEGATIVE (NEGATIVE); Nitrite Urine NEGATIVE (NEGATIVE); Protein Urine 30 mg/dL (NEG/TRACE); Specific Gravity Urine 1.025 (1.005-1.025)
[2024-06-03 12:25] LABS: Urine Microscopic Indicated YES
[2024-06-03 12:33] LABS: Bacteria Urine SMALL #/HPF (NONE SEEN); Mucus Urine SMALL (NONE SEEN); RBC Urine >100 #/HPF (0-2)
[2024-06-03 12:35] LABS: Cast Seen? NONE SEEN #/LPF (NONE SEEN); Crystals Seen? None Seen #/HPF (None Seen); Sperm Urine SEEN; Squamous Epithelial Cell Urine RARE #/LPF (NONE/RARE); Urine Culture Indicated YES
== END 2024-06-03 11:16 | disposition home or self-care (01) ==
LOC: LAB 11:15
PROVIDERS: PCP Internal Medicine; Visit Provider Internal Medicine
DX: R33.9 Retention of urine, unspecified (principal); R31.9 Hematuria, unspecified
CPT/HCPCS: 81001; 87086

== ENCOUNTER 2024-06-05 15:48 | Emergency (ER) | payer MEDICARE, SELFPAY ==
[2024-06-05] VITALS (30 sets, daily range): BP systolic 125–164; BP diastolic 68–89; PULSE 83–102; TEMP 37.1; O2SAT 96–100; BMI 27.3
--- NOTE | 2024-06-05 16:00 | CT_ITS ---
[address] [address] Patient Name: VASHTI MASSEY MRN: [id number] date: 1955 Sex: M Assigned Patient Location: ER Current Patient Location: Accession/Order Number: [id number] Exam Date: 06/05/2024 16:12 Report Date: 06/06/2024 10:00 At the request of: AKIL VERA Procedure: CT pelvis wo con EXAM: CT pelvis wo con HISTORY: fall COMPARISON: CT abdomen and pelvis 05/02/2016. TECHNIQUE: Unenhanced helical CT was performed through the pelvis. Multiplanar reformations were performed. FINDINGS: There are moderate to severe degenerative changes at L5-S1 with disc space narrowing and there is grade 2 anterolisthesis measuring 9 mm due to bilateral pars defects. There is a probable small Schmorl's node in the inferior endplate of L5. No acute fracture or dislocation in the pelvis or hips bilaterally. There are mild degenerative changes of the bilateral hips. There is a large amount of stool within the rectum. There are multiple diverticula in the sigmoid colon with no acute diverticulitis. There is a Cyr catheter within the urinary bladder which is decompressed and there is associated air in the bladder lumen. There is bladder wall thickening which may be due to underdistention, chronic outlet obstruction or cystitis. The prostate gland is enlarged at 6.6 x 5 cm. There is a small fat-containing umbilical hernia. CT/CT pelvis wo con IMPRESSION: 1. No acute fracture or dislocation. 2. Grade 2 anterolisthesis at L5-S1 due to pars defects with moderate degenerative changes at this level. 3. Prostatomegaly. 4. Cyr catheter within the urinary bladder with associated air in the bladder lumen. Bladder wall thickening may be due to underdistention or chronic outlet obstruction or cystitis in the appropriate clinical setting. 5. Large amount stool in the rectum and sigmoid colon diverticulosis. Electronically authenticated by: CALISTA SAVAGE Date: 06/06/2024 10:00
--- NOTE | 2024-06-05 16:00 | CT_ITS ---
The [address] [address] Patient Name: VASHTI MASSEY MRN: [id number] date: 1955 Sex: M Assigned Patient Location: ER Current Patient Location: .MAIN Accession/Order Number: [id number] Exam Date: 06/05/2024 16:12 Report Date: 06/05/2024 18:45 At the request of: AKIL VERA Procedure: CT cervical spine wo con CT CERVICAL SPINE WITHOUT CONTRAST HISTORY: Fall. COMPARISON: None available. TECHNIQUE: Helical CT images were performed of the cervical spine without intravenous contrast. Dose reduction techniques were achieved by using automated exposure control and/or adjustment of mA and/or kV according to patient size and/or use of iterative reconstruction technique. FINDINGS: CRANIOCERVICAL AND ATLANTOAXIAL ARTICULATIONS: Intact with no traumatic subluxation. VERTEBRAL BODIES: Normal in height with no acute compression fracture. DISC SPACES: Moderate loss of disc height at C3-4. Severe loss of disc height at C4-5, C5-6 and C6-7 with anterior and posterior osteophytes. ALIGNMENT: There is mild reversal of the normal cervical lordosis. POSTERIOR ELEMENTS: Intact. ODONTOID PROCESS: Intact. VISUALIZED SKULL BASE: Unremarkable. SPINAL CANAL/NEURAL FORAMEN: Multilevel posterior facet and uncovertebral joint hypertrophy noted. Severe right neural foraminal stenosis at C2-3. Severe left neural foraminal stenosis at C3-4. Severe right neural foraminal stenosis at C4-5. Moderate to severe bilateral neural foraminal stenosis at C5-6. Severe right neural foraminal stenosis at C6-7. UPPER THORAX: Unremarkable. SOFT TISSUES OF THE NECK: Unremarkable. CT/CT cervical spine wo con IMPRESSION: 1. No acute fracture or subluxation. 2. Degenerative changes as described in the body of the report. Electronically authenticated by: PUSHPA BURCH Date: 06/05/2024 18:45
--- NOTE | 2024-06-05 16:00 | CT_ITS ---
The [address] [address] Patient Name: VASHTI MASSEY MRN: [id number] date: 1955 Sex: M Assigned Patient Location: ER Current Patient Location: ER Accession/Order Number: [id number] Exam Date: 06/05/2024 16:12 Report Date: 06/05/2024 18:21 At the request of: AKIL VERA Procedure: CT head/brain wo con NONCONTRAST CT SCAN OF THE HEAD HISTORY: Dizziness. TECHNIQUE: Multiple axial images are taken from the level the vertex down to the base of the skull without the use of IV contrast. Images were then reconstructed in the sagittal and coronal planes. This exam was performed according to our departmental dose-optimization program which includes use of Automated Exposure Control, adjustment of the mA and/or kV according to patient size and/or use of iterative reconstruction technique. COMPARISON: None. FINDINGS: Brain Parenchyma: There is global, diffuse atrophy with periventricular decreased white matter attenuation. Evolving subacute encephalomalacia demonstrated in the inferior anterior right temporal lobe. There is also subarachnoid blood seen in the posterior left temporal lobe. There is also subarachnoid blood with vasogenic edema in the posterior right parietal lobe. Posterior fossa: Normal. Midline shift: None Extra-axial fluid collection: None Ventricles: Normal. Mastoid air cells: Normal. Sinuses: Normal. Cranium: No depressed skull fracture. Soft tissues: Normal. Orbits: Orbits demonstrate postoperative changes from prior cataract resection with prosthetic lens implant. CT/CT head/brain wo con IMPRESSION: 1. Acute subarachnoid blood seen in the posterior left temporal lobe. 2. Acute subarachnoid blood with vasogenic edema in the posterior right parietal lobe. 3. Evolving subacute encephalomalacia demonstrated in the inferior anterior right temporal lobe . May represent a subacute on chronic ischemic infarct. 4. MRI would help better delineate. Critical results were NOTIFIED by TELEPHONE BY Dr. Kelin Bray MD to DR. vera At 06/05/2024 5:34 PM EDT. Electronically authenticated by: KELIN BRAY Date: 06/05/2024 18:21
--- NOTE | 2024-06-05 16:00 | XR_ITS ---
The [address] [address] Patient Name: VASHTI MASSEY MRN: [id number] date: 1955 Sex: M Assigned Patient Location: ER Current Patient Location: Accession/Order Number: [id number] Exam Date: 06/05/2024 16:35 Report Date: 06/05/2024 18:28 At the request of: AKIL VERA Procedure: XR elbow LT min 3V EXAM: PLAIN FILM OF THE ELBOW LEFT HISTORY: On the left elbow. TECHNIQUE: 3 views of the elbow are submitted for review. COMPARISON: None. FINDINGS: No plain film evidence for acute displaced fracture. There mineralization is decreased. There is small joint effusion.Degenerative changes present involving joint spaces. Soft tissues are edematous. XR/XR elbow LT min 3V IMPRESSION: Degenerative change without plain film evidence for acute fracture. Electronically authenticated by: NING BRAY Date: 06/05/2024 18:28
--- OUTSIDE RECORDS SUMMARY | 2024-06-05 16:00 | XMS_ITS | CCD ---
Author Organization [facility]ini[facility] Care Team Providers Care Gold Leaf Printer Name Role Phone MUKESH, DR BUSH Primary Care Unavailable BALL, DR BUSH Attending Unavailable BALL, DR BUSH Admitting Unavailable BALL, DR BUSH Primary Care Unavailable BALL, DR BUSH Attending Unavailable BALL, DR BUSH Admitting Unavailable Ball Vinnie ESTRADA Primary Care Provider Vinnie Garza Unavailable JASON RODRIGUEZ Attending Unavailable KLAUS YEBOAH Attending Unavailable VINNIE GARZA Referring Unavailable VINNIE GARZA Primary Care Unavailable KLAUS YEBOAH Referring Unavailable VINNIE GARZA Primary Care Unavailable KLAUS YEBOAH Attending Unavailable KLAUS YEBOAH Referring Unavailable VINNIE GARZA Primary Care Unavailable TAWANNA EHAD Attending Unavailable VINNIE GARZA E Referring Unavailable MUKESH, VINNIE Graham Primary Care Unavailable AYDEE, MIRNA F Admitting Unavailable AYDEE, MIRNA F Attending Unavailable EMILIA JEFFREY Referring Unavailable VINNIE GARZA Primary Care Unavailable TT ONLY, [facility]ICE Consulting Unavailable KONG GALLEGOS Referring Unavailable VINNIE GARZA Primary Care Unavailable VINNIE GARZA Referring Unavailable VINNIE GARZA Primary Care Unavailable VINNIE GARZA E Referring Unavailable VINNIE GARZA Primary Care Unavailable SARAH BARRETT Attending Unavailable VINNIE GARZA Primary Care Unavailable INPATIENT, TELENEUROLOGY Consulting Unavail able ABEBE ROLLINS Admitting Unavailab KLAUS Boyd Referring Unavailable VINNIE GARZA Primary Care Unavailable SARAH BARRETT Attending Unavailable SARAH BARRETT Referring Unavailable VINNIE GARZA Primary Care Unavailable HAMMAD PATEL Attending Unavailable HAMMAD PATEL Referring Unavailable VINNIE GARZA Primary Care Unavailable KONG GALLEGOS Attending Unavailable KONG GALLEGOS Referring Unavailable VINNIE GARZA Primary Care Unavailable KONG GALLEGOS Attending Unavailable KONG GALLEGOS Referring Unavailable BALL, VINNIE E Primary Care Unavailable KLAUS YEBOAH Referring Unavailable BALL, VINNIE E Primary Care Unavailable BALL, VINNIE E Primary Care Unavailable PARIKH, YUDELKA Urban Attending Unavailable MIRNA BAJWA Consulting Unavailable EMILIA JEFFREY Admitting Unavailable YUDELKA LICEA Consulting Unavailable JL, YUDELKA Urban Attending Unavailable PARIKH, YUDELKA Urban Referring Unavailable BALL, VINNIE E Primary Care Unavailable PARIKH, YUDELKA Urban Attending Unavailable PARIKH, YUDELKA Urban Referring Unavailable BALL, VINNIE E Primary Care Unavailable BALL, VINNIE E Primary Care Unavailable GOLIVER, BROOK Mcdonald Attending Unavailable GOLIVER, BROOK Mcdonald Attending Unavailable GOLIVER, BROOK A Referring Unavailable BALL, VINNIE E Primary Care Unavailable BALL, VINNIE E Primary Care Unavailable TILA MENDOZAA Ted Attending Unavailable MARSHAALLY Admitting Unavailable BALL, VINNIE E Referring Unavailable BALL, VINNIE E Primary Care Unavailable Medications Current Medications Medication [...] 10/29/2023 Active Blood-Glucose Meter,Continuous (Freestyle Kathie [place]) misc (2 sources) Start: 03-01-2024 Blood-Glucose Meter,Continuous (Freestyle Kathie 3 [place]) misc Active 0 .Route 1 March 01, [...] Active 100 MG PO Twice daily 14 March 26, 2024 12:00am FreeStyle Kathie 2 [place] - (4 sources) Start: 11-26-2023 FreeStyle Kathie 2 [place] - Use to test home BS transcutaneous [...] and 15 Units before bedtime. 15 mL 10/29/2023 Active inject 15 [IU] by guzman [...] units. 351-400, give 10 units. 15 mL 10/29/2023 Active insulin lispro (HumaLOG) 100 unit/mL [...] evening meal for 90 *Pick strength-form from 3nder for eRX* Jun, Not-Taking/PRN NovoLIN 70/30 FlexPen Relion (70-30) 100UNIT/ML [...] evening meal for 30 *Pick strength-form from 3nder for eRX* 15 Jul, 2020 Not-Taking/PRN pravastatin sodium 80 mg oral tablet (8 sources) HMG-CoA Reductase Inhibitor Start: 04-16-2022 take 1 tablet by mouth every twenty-four hours Pravastatin Sodium 80 MG 1 tablet Orally Once a day for 100 days Dec, Not-Taking/PRN Problems Active Problems Problem Classification Problem Date Documented Date Episodic/Chronic Acute and unspecified renal failure (1 source) Acute kidney failure, unspecified; 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: [Acute kidney failure, unspecified] Onset: 05-27-2024 Episodic Acute cerebrovascular disease (11 sources) Thrombotic stroke; 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] Onset: 10-28-2023 10-31-2023 Chronic Acute cerebrovascular disease (1 source) Acute cerebrovascular disease Onset: 04-09-2024 Deficiency and other anemia (2 sources) Anemia, unspecified; 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: [Anemia, unspecified] Onset: 04-09-2024 Episodic Deficiency and other anemia (1 source) Iron deficiency anemia, unspecified; 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: [Iron deficiency anemia, unspecified] Onset: 04-18-2024 Episodic Diabetes mellitus with complications (20 sources) Type [...] Essential hypertension; 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: [Essential (primary) hypertension] Chronic Headache; including migraine (1 source) Headache Onset: 05-12-2024 Episodic Headache; including migraine (1 source) Headache; including migraine; 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: [Headache, unspecified] Onset: 05-12-2024 Late effects of cerebrovascular disease (4 sources) Sequela of cerebrovascular accident; 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: [Unspecified sequelae of cerebral infarction] Onset: 12-11-2023 12-11-2023 Chronic Malaise and fatigue (1 source) Weakness; 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: [Weakness] Onset: 05-27-2024 Episodic Osteoarthritis (8 sources) Arthritis of right knee; 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: [Unilateral primary osteoarthritis, right knee] Onset: 12-30-2023 12-30-2023 Chronic Other aftercare (4 sources) Long-term current use of insulin; 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: [CHCF (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 insulin] Episodic Other and ill-defined cerebrovascular disease (1 source) Cerebrovascular disease; 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: [Other cerebrovascular vasospasm and vasoconstriction] 10-31-2023 Chronic Other and ill-defined cerebrovascular disease (7 sources) Cerebral atherosclerosis; 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: [Cerebral atherosclerosis] 01-22-2024 Chronic Other and ill-defined cerebrovascular disease (7 sources) Cerebral atherosclerosis; 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: [Cerebral atherosclerosis] Chronic Other and ill-defined cerebrovascular disease (1 source) Other cerebrovascular vasospasm and vasoconstriction; 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: [Other cerebrovascular vasospasm and vasoconstriction] Onset: 10-31-2023 Chronic Other circulatory disease (1 source) Personal history of transient ischemic attack (TIA), and cerebral infarction without residual deficits Episodic Other connective tissue disease (2 sources) Presence of left artificial knee joint; 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: [Knee joint replacement] 03-26-2024 Chronic Other connective tissue disease (1 source) Neuralgia and neuritis, unspecified; 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: [Neuralgia and neuritis, unspecified] Onset: 04-10-2024 Episodic Other connective tissue disease (1 source) Unspecified symptoms and signs involving the nervous system; 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: [Unspecified symptoms and signs involving the nervous system] Onset: 04-10-2024 Episodic Other nervous system disorders (3 sources) Abnormal gait; 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: [Unsteadiness on feet] Onset: 12-11-2023 12-11-2023 Episodic Other nervous system disorders (1 source) Unsteadiness on feet; 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: [Unsteadiness on feet] Onset: 12-11-2023 Episodic Other non-traumatic joint disorders (4 sources) Pain in right knee; 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: [Pain in joint, lower leg] Onset: 12-30-2023 12-30-2023 Episodic Other screening for suspected conditions (not mental disorders or infectious disease) (1 source) Other specified abnormal findings of blood chemistry; 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: [Other specified abnormal findings of blood chemistry] Onset: 04-09-2024 Episodic Residual codes; unclassified (4 sources) Altered mental status; 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: [Altered mental status, unspecified] Onset: 10-26-2023 10-28-2023 Episodic Residual codes; unclassified (1 source) Pain Onset: 12-30-2023 Episodic Substance-related disorders (13 sources) Nicotine dependence; 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: [Nicotine dependence, cigarettes, uncomplicated] Chronic Superficial injury; contusion (9 sources) Contusion of right wrist, initial encounter; 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: [Contusion of right hand, initial encounter] Episodic Unclassified (1 source) Abnormal Lab Onset: 05-27-2024 Unclassified (1 source) Blurred Vision, Facial Droop Onset: 10-26-2023 Past or Other Problems Problem Classification Problem Date Documented Date Episodic/Chronic Blindness and vision defects (7 sources) Blurring of visual image; 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: [Other visual disturbances] Onset: 10-26-2023 10-28-2023 Episodic Mood disorders (2 sources) Mood disorders Onset: 12-11-2023 12-11-2023 Other aftercare (4 sources) 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; 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: [CHCF (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 insulin] Onset: 10-28-2023 Episodic Residual codes; unclassified (2 sources) Transient alteration of awareness; 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: [Transient alteration of awareness] Onset: 10-28-2023 12-11-2023 Episodic Residual codes; unclassified (1 source) Altered mental status, unspecified; 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: [Altered mental status, unspecified] Onset: 10-28-2023 Episodic Residual codes; unclassified (1 source) Hallucinations Onset: 10-26-2023 Episodic Results Test Name Value Interpretation Reference Range Facility BASIC METABOLIC PANLon 06-01 Anion gap [Moles/Vol] 10 mmol/L Normal 5-15 [facility] Comment on above: Performed By: #### P INR, 15187-5, 58940-7, CBCA, 42750-2, CMP, 6368-4, 1073-4 #### [facility] ([id number]) [address] [place] [address] #### HA1C #### [facility] ([id number]) [address], [address] [place] [address] Calcium [Mass/Vol] 8.7 mg/dL Normal 8.5-10.5 [facility] Comment on above: Performed By: #### P INR, 17939-3, 12453-2, CBCA, 50131-1, CMP, 4548-4, 6873-4 #### [facility] ([id number]) [address] [place] [address] 03146 #### HA1C #### [facility] ([id number]) [address], [address] [place] [address] Chloride [Moles/Vol] 99 mmol/L Normal 98-109 [facility] Comment on above: Performed By: #### P INR, 91770-7, 78609-3, CBCA, 69691-9, CMP, 4548-4, 6873-4 #### [facility] ([id number]) [address] [place] [address] 77798 #### HA1C #### [facility] ([id number]) [address], [address] [place] [address] CO2 [Moles/Vol] 23 mmol/L Normal 22-32 [facility] Comment on above: Performed By: #### P INR, 32564-6, 85640-8, CBCA, 46973-3, CMP, 4548-4, 6873-4 #### [facility] ([id number]) [address] [place] [address]80 #### HA1C #### [facility] ([id number]) [address], [address] [place] [address] Creatinine [Mass/Vol] 0.59 mg/dL Low 0.70-1.20 [facility] Comment on above: Result Comment: METH OD TRACEABLE TO IDMS STANDARD Performed By: #### P INR, 58984-0, 16014-8, CBCA, 31661-4, CMP, 4548-4, 6873-4 #### [facility] ([id number]) [address] [place] [address] 12172 #### HA1C #### [facility] ([id number]) [address] [facility] [place] [address] eGFR (CKD-EPI) NON-RACE DEPENDENT >90 Normal >59 [facility] Comment on above: Result Comment: Reported eGFR is based on the CKD-EPI 2020 equation that does not use a race coefficient. Performed By: #### P INR, 63979-8, 15457-6, CBCA, 94191-2, CMP, 4548-4, 6873-4 #### [facility] ([id number]) [address] [place] [address] 32717 #### HA1C #### [facility] ([id number]) [address] [facility] [place] [address] Glucose [Mass/Vol] 163 mg/dL High 65-99 [facility] Comment on above: Performed By: #### P INR, 01699-7, 62019-7, CBCA, 20340-4, CMP, 4548-4, 6873-4 #### [facility] ([id number]) [address] [place] [address] 02648 #### HA1C #### [facility] ([id number]) [address] [facility] [place] [address] Potassium [Moles/Vol] 3.9 mmol/L Normal 3.5-5.0 [facility] Comment on above: Performed By: #### P INR, 14784-6, 13915-4, CBCA, 75063-4, CMP, 4548-4, 6873-4 #### [facility] ([id number]) [address] [place] [address] 39746 #### HA1C #### [facility] ([id number]) [address], [address] [place] [address] Sodium [Moles/Vol] 132 mmol/L Low 134-146 [facility] Comment on above: Performed By: #### P INR, 13594-1, 36597-6, CBCA, 80129-1, CMP, 4548-4, 6873-4 #### [facility] ([id number]) [address] [place] [address] 59465 #### HA1C #### [facility] ([id number]) [address], [address] [place] [address] Urea nitrogen [Mass/Vol] 15 mg/dL Normal 5-27 [facility] Comment on above: Performed By: #### P INR, 61094-4, 78929-8, CBCA, 03543-4, CMP, 4548-4, 6873-4 #### [facility] ([id number]) [address] [place] [address]161 #### HA1C #### [facility] ([id number]) [address], [address] [place] [address] CBC AND AUTO DIFFon 06-01-20 24 ABSOLUTE BASOPHIL 0.0 X10E9/L Normal 0.0-0.2 [facility] Comment on above: Performed By: #### P INR, 57226-5, 49807-3, CBCA, 51364-8, CMP, 4548-4, 6873-4 #### [facility] ([id number]) [address] [place] [address] 39778 #### HA1C #### [facility] ([id number]) [address], [address] [place] [address] ABSOLUTE NEUTROPHIL 2.5 X10E9/L Normal 1.5-6.6 [facility] Comment on above: Performed By: #### P INR, 20986-5, 84701-6, CBCA, 21537-4, CMP, 4548-4, 6873-4 #### [facility] ([id number]) [address] [place] [address] 92818 #### HA1C #### [facility] ([id number]) [address] [facility] [place] [address] Basophils/100 WBC (Bld) 1.0 % Normal [facility] Comment on above: Performed By: #### P INR, 80994-2, 56442-9, CBCA, 64279-9, CMP, 4548-4, 6873-4 #### [facility] ([id number]) [address] [place] [address] 28654 #### HA1C #### [facility] ([id number]) [address] [place] [address], [facility] [address] [place] [address] Eosinophils (Bld) [#/Vol] 0.3 10*3/uL Normal 0.0-0.4 [facility] Comment on above: Performed By: #### P INR, 70133-3, 59790-5, CBCA, 07142-5, CMP, 4548-4, 6873-4 #### [facility] ([id number]) [address] [place] [address] 39502 #### HA1C #### [facility] ([id number]) [address] [place] [address], [address] [place] [address] Eosinophils/100 WBC (Bld) 6.5 % Normal [facility] Comment on above: Performed By: #### P INR, 16375-6, 55847-4, CBCA, 34948-6, CMP, 4548-4, 6873-4 #### [facility] ([id number]) [address] [place] [address] 95234 #### HA1C #### [facility] ([id number]) [address], [facility] [address] [place] [address] Erythrocyte distribution width (RBC) [Ratio] 15.7 % High 11.5-15.0 [facility] Comment on above: Performed By: #### P INR, 44737-6, 56781-9, CBCA, 38390-1, CMP, 4548-4, 6873-4 #### [facility] ([id number]) [address] [place] [address] 66239 #### HA1C #### [facility] ([id number]) [address] [address] [place] [address] Hematocrit (Bld) [Volume fraction] 34.2 % Low 39-49 [facility] Comment on above: Performed By: #### P INR, 33974-5, 10373-3, CBCA, 31826-0, CMP, 4548-4, 6873-4 #### [facility] ([id number]) [address] [place] [address] 49217 #### HA1C #### [facility] ([id number]) [address], [address] [place] [address] Hemoglobin (Bld) [Mass/Vol] 11.6 g/dL Low 13.0-17.0 [facility] Comment on above: Performed By: #### P INR, 09384-1, 56531-7, CBCA, 07584-6, CMP, 4548-4, 6873-4 #### [facility] ([id number]) [address] [place] [address] 36432 #### HA1C #### [facility] ([id number]) [address], [address] [place] [address] Lymphocytes (Bld) [#/Vol] 1.6 10*3/uL Normal 1.0-3.5 [facility] Comment on above: Performed By: #### P INR, 19370-5, 88772-9, CBCA, 76195-6, CMP, 4548-4, 6873-4 #### [facility] ([id number]) [address] [place] [address] 19546 #### HA1C #### [facility] ([id number]) [address] [facility] [place] [address] Lymphocytes/100 WBC (Bld) 33.6 % Normal [facility] Comment on above: Performed By: #### P INR, 88565-0, 40783-0, CBCA, 46648-6, CMP, 4548-4, 6873-4 #### [facility] ([id number]) [address] [place] [address] 69238 #### HA1C #### [facility] ([id number]) [address] [facility] [place] [address] MCH (RBC) [Entitic mass] 27.2 pg Normal 27-34 [facility] Comment on above: Performed By: #### P INR, 38906-6, 21678-1, CBCA, 26216-9, CMP, 4548-4, 6873-4 #### [facility] ([id number]) [address] [place] [address] 98261 #### HA1C #### [facility] ([id number]) [address] [facility] [place] [address] MCHC (RBC) [Mass/Vol] 33.9 g/dL Normal 32-36 [facility] Comment on above: Performed By: #### P INR, 59466-9, 35969-0, CBCA, 59309-5, CMP, 4548-4, 6873-4 #### [facility] ([id number]) [address] [place] [address] 39259 #### HA1C #### [facility] ([id number]) [address] [facility], [address] [place] [address] MCV (RBC) [Entitic vol] 80 fL Normal 80-100 [facility] Comment on above: Performed By: #### P INR, 03078-7, 68483-7, CBCA, 94025-8, CMP, 4548-4, 6873-4 #### [facility] ([id number]) [address] [place] [address] 70456 #### HA1C #### [facility] ([id number]) [address] [facility], [address] [place] [address] Monocytes (Bld) [#/Vol] 0.4 10*3/uL Normal 0-0.9 [facility] Comment on above: Performed By: #### P INR, 89571-5, 25422-1, CBCA, 41159-1, CMP, 4548-4, 6873-4 #### [facility] ([id number]) [address] [place] [address] 40646 #### HA1C #### [facility] ([id number]) [address] [facility], [address] [place] [address] Monocytes/100 WBC (Bld) 7.6 % Normal [facility] Comment on above: Performed By: #### P INR, 37722-1, 62036-6, CBCA, 92677-0, CMP, 4548-4, 6873-4 #### [facility] ([id number]) [address] [place] [address] 86558 #### HA1C #### [facility] ([id number]) [address] [facility], [address] [place] [address] Neutrophils/100 WBC (Bld) 51.3 % Normal [facility] Comment on above: Performed By: #### P INR, 84300-9, 52097-8, CBCA, 52486-1, CMP, 4548-4, 6873-4 #### [facility] ([id number]) [address] [place] [address] 72759 #### HA1C #### [facility] ([id number]) [address], [address] [place] [address] Platelet mean volume (Bld) [Entitic vol] 6.8 fL Low 7-12 [facility] Comment on above: Performed By: #### P INR, 23170-2, 21363-8, CBCA, 38797-5, CMP, 4548-4, 6873-4 #### [facility] ([id number]) [address] [place] [address] 54747 #### HA1C #### [facility] ([id number]) [address] [facility] [place] [address] Platelets (Bld) [#/Vol] 300 10*3/uL Normal 150-450 [facility] Comment on above: Performed By: #### P INR, 32596-6, 78212-2, CBCA, 34005-7, CMP, 4548-4, 6873-4 #### [facility] ([id number]) [address] [place] [address] 67157 #### HA1C #### [facility] ([id number]) [address] [facility] [place] [address] RBC COUNT 4.25 X10E12/L Normal 4.10-5.70 [facility] Comment on above: Performed By: #### P INR, 90350-9, 83471-2, CBCA, 74486-9, CMP, 4548-4, 6873-4 #### [facility] ([id number]) [address] [place] [address] 73472 #### HA1C #### [facility] ([id number]) [address], [address] [place] [address] WBC (Bld) [#/Vol] 4.9 10*3/uL Normal 4.0-11.0 [facility] Comment on above: Performed By: #### P INR, 28939-0, 53194-2, CBCA, 84520-7, CMP, 4548-4, 6873-4 #### [facility] ([id number]) [address] [place] [address] 36773 #### HA1C #### [facility] ([id number]) [address], [address] [place] [address] Glucose Glucometer (BldC) [M ass/Vol]on 06-01-2024 Glucose [Mass/Vol] 143 mg/dL High 65-99 [facility] BASIC METABOLIC PANLon 05-31 Anion gap [Moles/Vol] 8 mmol/L Normal 5-15 [facility] Comment on above: Performed By: #### P INR, 76350-4, 72123-0, CBCA, 38200-9, CMP, 4548-4, 6873-4 #### [facility] ([id number]) [address] [place] [address] 39142 #### HA1C #### [facility] ([id number]) [address], [address] [place] [address] Calcium [Mass/Vol] 8.5 mg/dL Normal 8.5-10.5 [facility] Comment on above: Performed By: #### P INR, 69085-6, 74041-6, CBCA, 98742-1, CMP, 4548-4, 6873-4 #### [facility] ([id number]) [address] [place] [address] [place] [address] #### HA1C #### [facility] ([id number]) [address], [address] [place] [address] Chloride [Moles/Vol] 100 mmol/L Normal 98-109 [facility] Comment on above: Performed By: #### P INR, 63962-1, 34446-5, CBCA, 58101-3, CMP, 4548-4, 6873-4 #### [facility] ([id number]) [address] [place] [address] 75286 #### HA1C #### [facility] ([id number]) [address] [facility] [place] [address] CO2 [Moles/Vol] 24 mmol/L Normal 22-32 [facility] Comment on above: Performed By: #### P INR, 46246-2, 18638-2, CBCA, 74423-3, CMP, 4548-4, 6873-4 #### [facility] ([id number]) [address] [place] [address] 11914 #### HA1C #### [facility] ([id number]) [address] [place] [address] Creatinine [Mass/Vol] 0.69 mg/dL Low 0.70-1.20 [facility] Comment on above: Result Comment: METH OD TRACEABLE TO IDMS STANDARD Performed By: #### P INR, 47497-1, 02640-4, CBCA, 77321-5, CMP, 4548-4, 6873-4 #### [facility] ([id number]) [address] [place] [id number] #### HA1C #### [facility] ([id number]) [address] [place] [address] eGFR (CKD-EPI) NON-RACE DEPENDENT >90 Normal >59 [facility] Comment on above: Result Comment: Reported eGFR is based on the CKD-EPI 2020 equation that does not use a race coefficient. Performed By: #### P INR, 73447-7, 08866-7, CBCA, 54240-7, CMP, 4548-4, 6873-4 #### [facility] ([id number]) [address] [place] [id number] #### HA1C #### [facility] ([id number]) [address], [address] [place] [address] Glucose [Mass/Vol] 139 mg/dL High 65-99 [facility] Comment on above: Performed By: #### P INR, 19791-1, 14935-0, CBCA, 19575-4, CMP, 4548-4, 6873-4 #### [facility] ([id number]) [address] [place] [id number] #### HA1C #### [facility] ([id number]) [address] [place] [address] Potassium [Moles/Vol] 3.7 mmol/L Normal 3.5-5.0 [facility] Comment on above: Performed By: #### P INR, 15632-1, 86924-8, CBCA, 49286-6, CMP, 4548-4, 6873-4 #### [facility] ([id number]) [address] [place] [id number] #### HA1C #### [facility] [facility] ([id number]) [address], [address] [place] [address] Sodium [Moles/Vol] 132 mmol/L Low 134-146 [facility] Comment on above: Performed By: #### P INR, 86796-9, 96707-6, CBCA, 44580-5, CMP, 4548-4, 6873-4 #### [facility] ([id number]) [address] [place] [address] 01727 #### HA1C #### [facility] ([id number]) [address], [address] [place] [address] Urea nitrogen [Mass/Vol] 16 mg/dL Normal 5-27 [facility] Comment on above: Performed By: #### P INR, 87013-2, 55996-2, CBCA, 62310-8, CMP, 4548-4, 6873-4 #### [facility] ([id number]) [address] [place] [address] 07893 #### HA1C #### [facility] ([id number]) [address], [address] [place] [address] CBC AND AUTO DIFFon 05-31-20 24 ABSOLUTE BASOPHIL 0.1 X10E9/L Normal 0.0-0.2 [facility] Comment on above: Performed By: #### P INR, 15695-3, 33191-4, CBCA, 13830-9, CMP, 4548-4, 6873-4 #### [facility] ([id number]) [address] [place] [address] 09971 #### HA1C #### [facility] ([id number]) [address] [facility] [place] [address] ABSOLUTE NEUTROPHIL 3.4 X10E9/L Normal 1.5-6.6 [facility] Comment on above: Performed By: #### P INR, 54533-9, 36751-5, CBCA, 61669-3, CMP, 4548-4, 6873-4 #### [facility] ([id number]) [address] [place] [address] 66330 #### HA1C #### [facility] ([id number]) [address], [address] [place] [address] Basophils/100 WBC (Bld) 1.1 % Normal [facility] Comment on above: Performed By: #### P INR, 93913-8, 05202-2, CBCA, 42140-1, CMP, 4548-4, 6873-4 #### [facility] ([id number]) [address] [place] [address] 93656 #### HA1C #### [facility] ([id number]) [address], [address] [place] [address] Eosinophils (Bld) [#/Vol] 0.4 10*3/uL Normal 0.0-0.4 [facility] Comment on above: Performed By: #### P INR, 02436-5, 79152-3, CBCA, 88935-8, CMP, 4548-4, 6873-4 #### [facility] ([id number]) [address] [place] [address] 54358 #### HA1C #### [facility] ([id number]) [address], [address] [place] [address] Eosinophils/100 WBC (Bld) 7.9 % Normal [facility] Comment on above: Performed By: #### P INR, 95446-2, 05597-1, CBCA, 61060-8, CMP, 4548-4, 6873-4 #### [facility] ([id number]) [address] [place] [address] 59366 #### HA1C #### [facility] ([id number]) [address], [address] [place] [address] Erythrocyte distribution width (RBC) [Ratio] 15.1 % High 11.5-15.0 [facility] Comment on above: Performed By: #### P INR, 65960-4, 03286-8, CBCA, 25129-1, CMP, 4548-4, 6873-4 #### [facility] ([id number]) [address] [place] [address] 46454 #### HA1C #### [facility] ([id number]) [address], [address] [place] [address] Hematocrit (Bld) [Volume fraction] 37.2 % Low 39-49 [facility] Comment on above: Performed By: #### P INR, 48361-2, 58661-6, CBCA, 89191-6, CMP, 4548-4, 6873-4 #### [facility] ([id number]) [address] [place] [address] 47396 #### HA1C #### [facility] ([id number]) [address], [address] [place] [address] Hemoglobin (Bld) [Mass/Vol] 12.5 g/dL Low 13.0-17.0 [facility] Comment on above: Performed By: #### P INR, 72513-0, 31671-9, CBCA, 93038-2, CMP, 4548-4, 6873-4 #### [facility] ([id number]) [address] [place] [address] 10935 #### HA1C #### [facility] ([id number]) [address], [address] [place] [address] Lymphocytes (Bld) [#/Vol] 1.2 10*3/uL Normal 1.0-3.5 [facility] Comment on above: Performed By: #### P INR, 20575-6, 55753-6, CBCA, 95860-2, CMP, 4548-4, 6873-4 #### [facility] ([id number]) [address] [place] [address] 24811 #### HA1C #### [facility] ([id number]) [address], [address] [place] [address] Lymphocytes/100 WBC (Bld) 21.2 % Normal [facility] Comment on above: Performed By: #### P INR, 07543-3, 83301-6, CBCA, 37454-6, CMP, 4548-4, 6873-4 #### [facility] ([id number]) [address] [place] [address] 81221 #### HA1C #### [facility] ([id number]) [address], [address] [place] [address] MCH (RBC) [Entitic mass] 27.4 pg Normal 27-34 [facility] Comment on above: Performed By: #### P INR, 20861-5, 32756-5, CBCA, 53467-8, CMP, 4548-4, 6873-4 #### [facility] ([id number]) [address] [place] [address] 09894 #### HA1C #### [facility] ([id number]) [address], [address] [place] [address] MCHC (RBC) [Mass/Vol] 33.7 g/dL Normal 32-36 [facility] Comment on above: Performed By: #### P INR, 92089-0, 55900-9, CBCA, 37715-7, CMP, 4548-4, 6873-4 #### [facility] ([id number]) [address] [place] [address] 87180 #### HA1C #### [facility] ([id number]) [address], [address] [place] [address] MCV (RBC) [Entitic vol] 81 fL Normal 80-100 [facility] Comment on above: Performed By: #### P INR, 64612-1, 22720-7, CBCA, 63529-6, CMP, 4548-4, 6873-4 #### [facility] ([id number]) [address] [place] [address] #### HA1C #### [facility] ([id number]) [address], [address] [place] [address] Monocytes (Bld) [#/Vol] 0.4 10*3/uL Normal 0-0.9 [facility] Comment on above: Performed By: #### P INR, 41343-2, 41739-6, CBCA, 54816-6, CMP, 4548-4, 6873-4 #### [facility] ([id number]) [address] [place] [address] 30439 #### HA1C #### [facility] ([id number]) [address] [facility] [place] [address] Monocytes/100 WBC (Bld) 6.7 % Normal [facility] Comment on above: Performed By: #### P INR, 81582-0, 68340-5, CBCA, 30145-6, CMP, 4548-4, 6873-4 #### [facility] ([id number]) [address] [place] [address] 05115 #### HA1C #### [facility] ([id number]) [address] [facility] [place] [address] Neutrophils/100 WBC (Bld) 63.1 % Normal [facility] Comment on above: Performed By: #### P INR, 79935-5, 43620-1, CBCA, 76378-1, CMP, 4548-4, 6873-4 #### [facility] ([id number]) [address] [place] [address] 09707 #### HA1C #### [facility] ([id number]) [address], [address] [place] [address] Platelet mean volume (Bld) [Entitic vol] 6.9 fL Low 7-12 [facility] Comment on above: Performed By: #### P INR, 31979-3, 10386-8, CBCA, 53003-3, CMP, 4548-4, 6873-4 #### [facility] ([id number]) [address] [place] [address] 18898 #### HA1C #### [facility] ([id number]) [address] [facility], [address] [place] [address] Platelets (Bld) [#/Vol] 297 10*3/uL Normal 150-450 [facility] Comment on above: Performed By: #### P INR, 59919-5, 76738-5, CBCA, 34803-6, CMP, 4548-4, 6873-4 #### [facility] ([id number]) [address] [place] [address] 84121 #### HA1C #### [facility] ([id number]) [address] [facility], [address] [place] [address] RBC COUNT 4.57 X10E12/L Normal 4.10-5.70 [facility] Comment on above: Performed By: #### P INR, 93026-0, 34967-0, CBCA, 41641-5, CMP, 4548-4, 6873-4 #### [facility] ([id number]) [address] [place] [address] 79132 #### HA1C #### [facility] ([id number]) [address] [facility], [address] [place] [address] WBC (Bld) [#/Vol] 5.4 10*3/uL Normal 4.0-11.0 [facility] Comment on above: Performed By: #### P INR, 28914-9, 01464-1, CBCA, 19246-3, CMP, 4548-4, 6873-4 #### [facility] ([id number]) [address] [place] [address] [place] [address] #### HA1C #### [facility] ([id number]) [address] [place] [address], [address] [place] [address] Glucose Glucometer (BldC) [M ass/Vol]on 05-31-2024 Glucose [Mass/Vol] 201 mg/dL High 65-99 [facility] Glucose [Mass/Vol] 217 mg/dL High 65-99 [facility] Glucose [Mass/Vol] 189 mg/dL High 65-99 [facility] Glucose [Mass/Vol] 148 mg/dL High 65-99 [facility] CBC AND AUTO DIFFon 05-30-20 ABSOLUTE BASOPHIL 0.1 X10E9/L Normal 0.0-0.2 [facility] Comment on above: Performed By: #### P INR, 51906-7, 96331-1, CBCA, 68849-2, CMP, 4548-4, 6873-4 #### [facility] ([id number]) [address] [place] [address] 54066 #### HA1C #### [facility] ([id number]) [address] [place] [address], [address] [address] ABSOLUTE NEUTROPHIL 2.4 X10E9/L Normal 1.5-6.6 [facility] Comment on above: Performed By: #### P INR, 64059-1, 33897-2, CBCA, 92422-5, CMP, 4548-4, 6873-4 #### [facility] ([id number]) [address] [place] [address] 84101 #### HA1C #### [facility] ([id number]) [address] [place] [address], [address] [place] [address] Basophils/100 WBC (Bld) 1.2 % Normal [facility] Comment on above: Performed By: #### P INR, 61147-1, 35302-2, CBCA, 33596-3, CMP, 4548-4, 6873-4 #### [facility] ([id number]) [address] [place] [address] 60735 #### HA1C #### [facility] ([id number]) [address], [address] [place] [address] Eosinophils (Bld) [#/Vol] 0.4 10*3/uL Normal 0.0-0.4 [facility] Comment on above: Performed By: #### P INR, 28878-8, 26571-3, CBCA, 02055-4, CMP, 4548-4, 6873-4 #### [facility] ([id number]) [address] [place] [address] 40179 #### HA1C #### [facility] ([id number]) [address], [address] [place] [address] Eosinophils/100 WBC (Bld) 10.0 % Normal [facility] Comment on above: Performed By: #### P INR, 02093-1, 03190-3, CBCA, 17581-6, CMP, 4548-4, 6873-4 #### [facility] ([id number]) [address] [place] [address] 69821 #### HA1C #### [facility] ([id number]) [address], [address] [place] [address] Erythrocyte distribution width (RBC) [Ratio] 15.3 % High 11.5-15.0 [facility] Comment on above: Performed By: #### P INR, 94995-9, 18146-4, CBCA, 04237-4, CMP, 4548-4, 6873-4 #### [facility] ([id number]) [address] [place] [address] 15083 #### HA1C #### [facility] ([id number]) [address], [address] [place] [address] Hematocrit (Bld) [Volume fraction] 33.6 % Low 39-49 [facility] Comment on above: Performed By: #### P INR, 48540-6, 65355-4, CBCA, 62878-2, CMP, 4548-4, 6873-4 #### [facility] ([id number]) [address] [place] [address] 25959 #### HA1C #### [facility] ([id number]) [address], [address] [place] [address] Hemoglobin (Bld) [Mass/Vol] 11.3 g/dL Low 13.0-17.0 [facility] Comment on above: Performed By: #### P INR, 68769-9, 68174-9, CBCA, 65409-5, CMP, 4548-4, 6873-4 #### [facility] ([id number]) [address] [place] [address] 12176 #### HA1C #### [facility] ([id number]) [address] [address] Lymphocytes (Bld) [#/Vol] 1.1 10*3/uL Normal 1.0-3.5 [facility] Comment on above: Performed By: #### P INR, 39751-1, 75825-1, CBCA, 95445-7, CMP, 4548-4, 6873-4 #### [facility] ([id number]) [address] [place] [address] 59547 #### HA1C #### [facility] ([id number]) [address], [facility] [address] [place] [address] Lymphocytes/100 WBC (Bld) 24.4 % Normal [facility] Comment on above: Performed By: #### P INR, 13933-5, 38406-5, CBCA, 97740-0, CMP, 4548-4, 6873-4 #### [facility] ([id number]) [address] [place] [address] 62261 #### HA1C #### [facility] ([id number]) [address], [address] [place] [address] MCH (RBC) [Entitic mass] 27.2 pg Normal 27-34 [facility] Comment on above: Performed By: #### P INR, 82489-3, 97130-1, CBCA, 92010-8, CMP, 4548-4, 6873-4 #### [facility] ([id number]) [address] [place] [address] 41031 #### HA1C #### [facility] ([id number]) [address], [address] [place] [address] MCHC (RBC) [Mass/Vol] 33.5 g/dL Normal 32-36 [facility] Comment on above: Performed By: #### P INR, 17341-5, 91126-1, CBCA, 43576-7, CMP, 4548-4, 6873-4 #### [facility] ([id number]) [address] [place] [address] 03013 #### HA1C #### [facility] ([id number]) [address], [address] [place] [address] MCV (RBC) [Entitic vol] 81 fL Normal 80-100 [facility] Comment on above: Performed By: #### P INR, 22454-6, 79247-5, CBCA, 52366-8, CMP, 4548-4, 6873-4 #### [facility] ([id number]) [address] [place] [address] 64593 #### HA1C #### [facility] ([id number]) [address], [address] [place] [address] Monocytes (Bld) [#/Vol] 0.4 10*3/uL Normal 0-0.9 [facility] Comment on above: Performed By: #### P INR, 25307-7, 13694-8, CBCA, 18071-0, CMP, 4548-4, 6873-4 #### [facility] ([id number]) [address] [place] [address] 99210 #### HA1C #### [facility] ([id number]) [address] [facility] [place] [address] Monocytes/100 WBC (Bld) 9.7 % Normal [facility] Comment on above: Performed By: #### P INR, 72810-9, 14744-2, CBCA, 85361-6, CMP, 4548-4, 6873-4 #### [facility] ([id number]) [address] [place] [address] 57783 #### HA1C #### [facility] ([id number]) [address] [facility] [facility] [address] [place] [address] Neutrophils/100 WBC (Bld) 54.7 % Normal [facility] Comment on above: Performed By: #### P INR, 03881-0, 41697-0, CBCA, 26785-4, CMP, 4548-4, 6873-4 #### [facility] ([id number]) [address] [place] [address] 30730 #### HA1C #### [facility] ([id number]) [address], [address] [place] [address] Platelet mean volume (Bld) [Entitic vol] 7.1 fL Normal 7-12 [facility] Comment on above: Performed By: #### P INR, 05726-1, 23586-6, CBCA, 93057-1, CMP, 4548-4, 6873-4 #### [facility] ([id number]) [address] [place] [address] 76885 #### HA1C #### [facility] ([id number]) [address], [address] [place] [address] Platelets (Bld) [#/Vol] 282 10*3/uL Normal 150-450 [facility] Comment on above: Performed By: #### P INR, 16318-8, 20718-0, CBCA, 13466-5, CMP, 4548-4, 6873-4 #### [facility] ([id number]) [address] [place] [address] 41634 #### HA1C #### [facility] ([id number]) [address] [facility] [place] [address] RBC COUNT 4.14 X10E12/L Normal 4.10-5.70 [facility] Comment on above: Performed By: #### P INR, 01929-3, 29951-4, CBCA, 44357-8, CMP, 4548-4, 6873-4 #### [facility] ([id number]) [address] [place] [address] 22359 #### HA1C #### [facility] ([id number]) [address] [facility] [place] [address] WBC (Bld) [#/Vol] 4.4 10*3/uL Normal 4.0-11.0 [facility] Comment on above: Performed By: #### P INR, 45778-7, 22011-5, CBCA, 89248-7, CMP, 4548-4, 6873-4 #### [facility] ([id number]) [address] [place] [address] 41976 #### HA1C #### [facility] ([id number]) [address] [facility], [address] [place] [address] COMPREHENSIVE METABOLIC PANE [place] 05-30-2024 Albumin [Mass/Vol] 3.3 g/dL Normal 3.2-5.3 [facility] Comment on above: Performed By: #### P INR, 27929-3, 27776-1, CBCA, 66472-9, CMP, 4548-4, 6873-4 #### [facility] ([id number]) [address] [place] [address] 22248 #### HA1C #### [facility] ([id number]) [address] [place] [address], [address] [place] [address] ALP [Catalytic activity/Vol] 82 U/L Normal 39-130 [facility] Comment on above: Performed By: #### P INR, 41214-8, 39534-6, CBCA, 36060-5, CMP, 4548-4, 6873-4 #### [facility] ([id number]) [address] [place] [address] 71655 #### HA1C #### [facility] ([id number]) [address] [place] [address], [facility] [address] [place] [address] ALT [Catalytic activity/Vol] 27 U/L Normal 0-40 [facility] Comment on above: Performed By: #### P INR, 65625-5, 67180-3, CBCA, 45285-9, CMP, 4548-4, 6873-4 #### [facility] ([id number]) [address] [place] [address] 28051 #### HA1C #### [facility] ([id number]) [address] [place] [address], [address] [place] [address] Anion gap [Moles/Vol] 7 mmol/L Normal 5-15 [facility] Comment on above: Performed By: #### P INR, 60524-9, 92186-0, CBCA, 68819-7, CMP, 4548-4, 6873-4 #### [facility] ([id number]) [address] [place] [address] 35750 #### HA1C #### [facility] ([id number]) [address], [address] [place] [address] AST [Catalytic activity/Vol] 21 U/L Normal 0-41 [facility] Comment on above: Performed By: #### P INR, 87411-7, 80026-8, CBCA, 84523-3, CMP, 4548-4, 6873-4 #### [facility] ([id number]) [address] [place] [address] 07716 #### HA1C #### [facility] ([id number]) [address] [facility], [address] [place] [address] Bilirubin [Mass/Vol] 0.6 mg/dL Normal 0.3-1.2 [facility] Comment on above: Performed By: #### P INR, 84780-6, 65489-9, CBCA, 24267-5, CMP, 4548-4, 6873-4 #### [facility] ([id number]) [address] [place] [address] 33246 #### HA1C #### [facility] ([id number]) [address] [facility] [place] [address] Calcium [Mass/Vol] 8.2 mg/dL Low 8.5-10.5 [facility] Comment on above: Performed By: #### P INR, 23459-6, 24985-5, CBCA, 01030-5, CMP, 4548-4, 6873-4 #### [facility] ([id number]) [address] [place] [address] 81095 #### HA1C #### [facility] ([id number]) [address] [facility] [place] [address] Chloride [Moles/Vol] 103 mmol/L Normal 98-109 [facility] Comment on above: Performed By: #### P INR, 17102-1, 32331-0, CBCA, 84151-8, CMP, 4548-4, 6873-4 #### [facility] ([id number]) [address] [place] [address] 46649 #### HA1C #### [facility] ([id number]) [address] [facility], [address] [place] [address] CO2 [Moles/Vol] 23 mmol/L Normal 22-32 [facility] Comment on above: Performed By: #### P INR, 57148-0, 00479-0, CBCA, 42309-5, CMP, 4548-4, 6873-4 #### [facility] ([id number]) [address] [place] [address] #### HA1C #### [facility] ([id number]) [address] [place] [address], [address] [place] [address] Creatinine [Mass/Vol] 0.69 mg/dL Low 0.70-1.20 [facility] Comment on above: Result Comment: METH OD TRACEABLE TO IDMS STANDARD Performed By: #### P INR, 49210-3, 60096-2, CBCA, 78119-4, CMP, 4548-4, 6873-4 #### [facility] ([id number]) [address] [place] [address] #### HA1C #### [facility] ([id number]) [address] [place] [address], [address] [place] [address] eGFR (CKD-EPI) NON-RACE DEPENDENT >90 Normal >59 [facility] Comment on above: Result Comment: Reported eGFR is based on the CKD-EPI 2020 equation that does not use a race coefficient. Performed By: #### P INR, 03966-2, 52235-1, CBCA, 41274-2, CMP, 4548-4, 6873-4 #### [facility] ([id number]) [address] [place] [address] #### HA1C #### [facility] ([id number]) [address], [address] [place] [address] Glucose [Mass/Vol] 132 mg/dL High 65-99 [facility] Comment on above: Performed By: #### P INR, 74363-0, 06828-6, CBCA, 06108-6, CMP, 4548-4, 6873-4 #### [facility] ([id number]) [address] [place] [address] #### HA1C #### [facility] ([id number]) [address], [address] [place] [address] Potassium [Moles/Vol] 3.6 mmol/L Normal 3.5-5.0 [facility] Comment on above: Performed By: #### P INR, 52174-1, 83419-5, CBCA, 14478-2, CMP, 4548-4, 6873-4 #### [facility] ([id number]) [address] [place] [address] #### HA1C #### [facility] ([id number]) [address], [address] [place] [address] Protein [Mass/Vol] 6.4 g/dL Normal 6.0-8.0 [facility] Comment on above: Performed By: #### P INR, 40142-6, 58370-1, CBCA, 99341-9, CMP, 4548-4, 6873-4 #### [facility] ([id number]) [address] [place] [address] #### HA1C #### [facility] ([id number]) [address], [address] [place] [address] Sodium [Moles/Vol] 133 mmol/L Low 134-146 [facility] Comment on above: Performed By: #### P INR, 26552-3, 12708-2, CBCA, 16650-6, CMP, 4548-4, 6873-4 #### [facility] ([id number]) [address] [place] [address] #### HA1C #### [facility] ([id number]) [address], [address] [place] [address] Urea nitrogen [Mass/Vol] 25 mg/dL Normal 5-27 [facility] Comment on above: Performed By: #### P INR, 49553-1, 42357-6, CBCA, 64205-9, CMP, 4548-4, 6873-4 #### [facility] ([id number]) [address] [place] [address] #### HA1C #### [facility] ([id number]) [address], [address] [place] [address] Glucose Glucometer (dC) [M ass/Vol]on 05-30-2024 Glucose [Mass/Vol] 194 mg/dL High 65-99 [facility] Glucose [Mass/Vol] 176 mg/dL High 65-99 [facility] Glucose [Mass/Vol] 131 mg/dL High 65-99 [facility] Glucose [Mass/Vol] 122 mg/dL High 65-99 [facility] CBC AND AUTO DIFFon 05-29-20 24 ABSOLUTE BASOPHIL 0.0 X10E9/L Normal 0.0-0.2 [facility] Comment on above: Performed By: #### P INR, 37641-7, 82232-3, CBCA, 67761-4, CMP, 4548-4, 6873-4 #### [facility] ([id number]) [address] [place] [address] #### HA1C #### [facility] ([id number]) [address], [address] [place] [address] ABSOLUTE NEUTROPHIL 3.0 X10E9/L Normal 1.5-6.6 [facility] Comment on above: Performed By: #### P INR, 27795-6, 06023-3, CBCA, 39024-5, CMP, 4548-4, 6873-4 #### [facility] ([id number]) [address] [place] [address] #### HA1C #### [facility] ([id number]) [address] [facility] [facility] [place] [address] Basophils/100 WBC (Bld) 0.5 % Normal [facility] Comment on above: Performed By: #### P INR, 41500-5, 96578-2, CBCA, 99222-5, CMP, 4548-4, 6873-4 #### [facility] ([id number]) [address] [place] [address] #### HA1C #### [facility] ([id number]) [address] [facility] [facility], [address] [place] [address] Eosinophils (Bld) [#/Vol] 0.3 10*3/uL Normal 0.0-0.4 [facility] Comment on above: Performed By: #### P INR, 26376-8, 40463-6, CBCA, 54095-5, CMP, 4548-4, 6873-4 #### [facility] ([id number]) [address] [place] [address] #### HA1C #### [facility] ([id number]) [address], [address] [place] [address] Eosinophils/100 WBC (Bld) 6.0 % Normal [facility] Comment on above: Performed By: #### P INR, 64128-4, 38333-9, CBCA, 95502-3, CMP, 4548-4, 6873-4 #### [facility] ([id number]) [address] [place] [address] 98017 #### HA1C #### [facility] ([id number]) [address], [address] [place] [address] Erythrocyte distribution width (RBC) [Ratio] 15.7 % High 11.5-15.0 [facility] Comment on above: Performed By: #### P INR, 66597-7, 29717-8, CBCA, 38093-1, CMP, 4548-4, 6873-4 #### [facility] ([id number]) [address] [place] [address] 72565 #### HA1C #### [facility] ([id number]) [address] [facility], [address] [place] [address] Hematocrit (Bld) [Volume fraction] 31.8 % Low 39-49 [facility] Comment on above: Performed By: #### P INR, 72241-3, 18595-1, CBCA, 33807-7, CMP, 4548-4, 6873-4 #### [facility] ([id number]) [address] [place] [address] 71641 #### HA1C #### [facility] ([id number]) [address] [facility], [address] [place] [address] Hemoglobin (Bld) [Mass/Vol] 10.7 g/dL Low 13.0-17.0 [facility] Comment on above: Performed By: #### P INR, 59568-0, 24792-0, CBCA, 97369-7, CMP, 4548-4, 6873-4 #### [facility] ([id number]) [address] [place] [address] 04563 #### HA1C #### [facility] ([id number]) [address], [address] [place] [address] Lymphocytes (Bld) [#/Vol] 0.7 10*3/uL Low 1.0-3.5 [facility] Comment on above: Performed By: #### P INR, 59116-9, 71800-5, CBCA, 39170-5, CMP, 4548-4, 6873-4 #### [facility] ([id number]) [address] [place] [address] 54866 #### HA1C #### [facility] ([id number]) [address], [address] [place] [address] Lymphocytes/100 WBC (Bld) 14.9 % Normal [facility] Comment on above: Performed By: #### P INR, 47638-3, 08909-2, CBCA, 95148-1, CMP, 4548-4, 6873-4 #### [facility] ([id number]) [address] [place] [address] 30536 #### HA1C #### [facility] ([id number]) [address], [address] [place] [address] MCH (RBC) [Entitic mass] 27.7 pg Normal 27-34 [facility] Comment on above: Performed By: #### P INR, 78734-2, 95607-5, CBCA, 05832-5, CMP, 4548-4, 6873-4 #### [facility] ([id number]) [address] [place] [address] 76915 #### HA1C #### [facility] ([id number]) [address], [address] [place] [address] MCHC (RBC) [Mass/Vol] 33.7 g/dL Normal 32-36 [facility] Comment on above: Performed By: #### P INR, 62724-7, 22421-4, CBCA, 01774-8, CMP, 4548-4, 6873-4 #### [facility] ([id number]) [address] [place] [address] 67230 #### HA1C #### [facility] ([id number]) [address], [address] [place] [address] MCV (RBC) [Entitic vol] 82 fL Normal 80-100 [facility] Comment on above: Performed By: #### P INR, 42320-9, 74550-6, CBCA, 66440-9, CMP, 4548-4, 6873-4 #### [facility] ([id number]) [address] [place] [address] 24083 #### HA1C #### [facility] ([id number]) [address] [facility], [address] [place] [address] Monocytes (Bld) [#/Vol] 0.5 10*3/uL Normal 0-0.9 [facility] Comment on above: Performed By: #### P INR, 32598-8, 12896-3, CBCA, 71518-5, CMP, 4548-4, 6873-4 #### [facility] ([id number]) [address] [place] [address] 47646 #### HA1C #### [facility] ([id number]) [address], [address] [place] [address] Monocytes/100 WBC (Bld) 11.2 % Normal [facility] Comment on above: Performed By: #### P INR, 96769-9, 56653-2, CBCA, 81112-7, CMP, 4548-4, 6873-4 #### [facility] ([id number]) [address] [place] [address] 90550 #### HA1C #### [facility] ([id number]) [address] [facility], [address] [place] [address] Neutrophils/100 WBC (Bld) 67.4 % Normal [facility] Comment on above: Performed By: #### P INR, 51576-9, 34611-1, CBCA, 22717-8, CMP, 4548-4, 6873-4 #### [facility] ([id number]) [address] [place] [address] 63348 #### HA1C #### [facility] ([id number]) [address] [facility], [address] [place] [address] Platelet mean volume (Bld) [Entitic vol] 7.4 fL Normal 7-12 [facility] Comment on above: Performed By: #### P INR, 99145-8, 40991-6, CBCA, 57825-1, CMP, 4548-4, 6873-4 #### [facility] ([id number]) [address] [place] [address] 60227 #### HA1C #### [facility] ([id number]) [address] [facility], [address] [place] [address] Platelets (Bld) [#/Vol] 263 10*3/uL Normal 150-450 [facility] Comment on above: Performed By: #### P INR, 69481-8, 63291-7, CBCA, 19627-9, CMP, 4548-4, 6873-4 #### [facility] ([id number]) [address] [place] [address] 95049 #### HA1C #### [facility] ([id number]) [address] [facility], [address] [place] [address] RBC COUNT 3.86 X10E12/L Low 4.10-5.70 [facility] Comment on above: Performed By: #### P INR, 79034-2, 75049-7, CBCA, 05188-6, CMP, 4548-4, 6873-4 #### [facility] ([id number]) [address] [place] [address] 96824 #### HA1C #### [facility] ([id number]) [address], [address] [place] [address] WBC (Bld) [#/Vol] 4.4 10*3/uL Normal 4.0-11.0 [facility] Comment on above: Performed By: #### P INR, 11126-3, 71640-3, CBCA, 91124-4, CMP, 4548-4, 6873-4 #### [facility] ([id number]) [address] [place] [address] 10019 #### HA1C #### [facility] ([id number]) [address], [address] [place] [address] COMPREHENSIVE METABOLIC PANE [place] 05-29-2024 Albumin [Mass/Vol] 3.1 g/dL Low 3.2-5.3 [facility] Comment on above: Performed By: #### P INR, 52022-9, 90248-9, CBCA, 76560-7, CMP, 4548-4, 6873-4 #### [facility] ([id number]) [address] [place] [address] 71023 #### HA1C #### [facility] ([id number]) [address], [address] [place] [address] ALP [Catalytic activity/Vol] 79 U/L Normal 39-130 [facility] Comment on above: Performed By: #### P INR, 11980-5, 45819-5, CBCA, 27545-6, CMP, 4548-4, 6873-4 #### [facility] ([id number]) [address] [place] [address] 20608 #### HA1C #### [facility] ([id number]) [address] [facility], [address] [place] [address] ALT [Catalytic activity/Vol] 23 U/L Normal 0-40 [facility] Comment on above: Performed By: #### P INR, 07606-7, 35591-6, CBCA, 48466-8, CMP, 4548-4, 6873-4 #### [facility] ([id number]) [address] [place] [address] 62442 #### HA1C #### [facility] ([id number]) [address] [facility], [address] [place] [address] Anion gap [Moles/Vol] 9 mmol/L Normal 5-15 [facility] Comment on above: Performed By: #### P INR, 14579-7, 44858-4, CBCA, 01422-8, CMP, 4548-4, 6873-4 #### [facility] ([id number]) [address] [place] [address] 09980 #### HA1C #### [facility] ([id number]) [address] [facility], [address] [place] [address] AST [Catalytic activity/Vol] 20 U/L Normal 0-41 [facility] Comment on above: Performed By: #### P INR, 74283-5, 05563-8, CBCA, 60203-2, CMP, 4548-4, 6873-4 #### [facility] ([id number]) [address] [place] [address] 92269 #### HA1C #### [facility] ([id number]) [address] [facility], [address] [place] [address] Bilirubin [Mass/Vol] 0.5 mg/dL Normal 0.3-1.2 [facility] Comment on above: Performed By: #### P INR, 96228-5, 87291-0, CBCA, 97371-7, CMP, 4548-4, 6873-4 #### [facility] ([id number]) [address] [place] [address] 05367 #### HA1C #### [facility] ([id number]) [address], [address] [place] [address] Calcium [Mass/Vol] 8.6 mg/dL Normal 8.5-10.5 [facility] Comment on above: Performed By: #### P INR, 52421-3, 52694-6, CBCA, 95492-7, CMP, 4548-4, 6873-4 #### [facility] ([id number]) [address] [place] [address] 57082 #### HA1C #### [facility] ([id number]) [address], [address] [place] [address] Chloride [Moles/Vol] 102 mmol/L Normal 98-109 [facility] Comment on above: Performed By: #### P INR, 43488-1, 79542-6, CBCA, 66913-6, CMP, 4548-4, 6873-4 #### [facility] ([id number]) [address] [place] [address] 08110 #### HA1C #### [facility] ([id number]) [address], [address] [place] [address] CO2 [Moles/Vol] 24 mmol/L Normal 22-32 [facility] Comment on above: Performed By: #### P INR, 34146-5, 84913-7, CBCA, 79792-7, CMP, 4548-4, 6873-4 #### [facility] ([id number]) [address] [place] [address] 55695 #### HA1C #### [facility] ([id number]) [address], [address] [place] [address] Creatinine [Mass/Vol] 1.13 mg/dL Normal 0.70-1.20 [facility] Comment on above: Result Comment: METH OD TRACEABLE TO IDMS STANDARD Performed By: #### P INR, 58659-3, 61804-6, CBCA, 11912-5, CMP, 4548-4, 6873-4 #### [facility] ([id number]) [address] [place] [address] 93731 #### HA1C #### [facility] ([id number]) [address] [facility], [address] [place] [address] GFR/1.73 sq M.predicted among non-blacks MDRD (S/P/Bld) [Vol rate/Area] 70 mL/min/{1.73_m2} Normal >59 [facility] Comment on above: Result Comment: Reported eGFR is based on the CKD-EPI 2020 equation that does not use a race coefficient. Performed By: #### P INR, 72602-5, 57569-6, CBCA, 75667-0, CMP, 4548-4, 6873-4 #### [facility] ([id number]) [address] [place] [address] 38821 #### HA1C #### [facility] ([id number]) [address] [facility], [address] [place] [address] Glucose [Mass/Vol] 133 mg/dL High 65-99 [facility] Comment on above: Performed By: #### P INR, 88102-8, 41228-8, CBCA, 69758-3, CMP, 4548-4, 6873-4 #### [facility] ([id number]) [address] [place] [address] 65093 #### HA1C #### [facility] ([id number]) [address] [facility], [address] [place] [address] Potassium [Moles/Vol] 3.5 mmol/L Normal 3.5-5.0 [facility] Comment on above: Performed By: #### P INR, 15468-1, 03645-1, CBCA, 50805-0, CMP, 4548-4, 6873-4 #### [facility] ([id number]) [address] [place] [address] 60064 #### HA1C #### [facility] ([id number]) [address] [facility], [address] [place] [address] Protein [Mass/Vol] 6.2 g/dL Normal 6.0-8.0 [facility] Comment on above: Performed By: #### P INR, 95779-6, 50254-9, CBCA, 08645-7, CMP, 4548-4, 6873-4 #### [facility] ([id number]) [address] [place] [address] 42666 #### HA1C #### [facility] ([id number]) [address] [facility], [address] [place] [address] Sodium [Moles/Vol] 135 mmol/L Normal 134-146 [facility] Comment on above: Performed By: #### P INR, 37495-7, 85040-6, CBCA, 24194-7, CMP, 4548-4, 6873-4 #### [facility] ([id number]) [address] [place] [address] 67062 #### HA1C #### [facility] ([id number]) [address] [facility], [address] [place] [address] Urea nitrogen [Mass/Vol] 52 mg/dL High 5-27 [facility] Comment on above: Performed By: #### P INR, 02888-6, 64346-6, CBCA, 85303-8, CMP, 4548-4, 6873-4 #### [facility] ([id number]) [address] [place] [address] 15624 #### HA1C #### [facility] ([id number]) [address] [place] [address], [address] [place] [address] Glucose Glucometer (BldC) [M ass/Vol]on 05-29-2024 Glucose [Mass/Vol] 167 mg/dL High 65-99 [facility] Glucose [Mass/Vol] 127 mg/dL High 65-99 [facility] Glucose [Mass/Vol] 168 mg/dL High 65-99 [facility] POTASSIUMon 05-29-2024 Potassium [Moles/Vol] 4.1 mmol/L Normal 3.5-5.0 [facility] Comment on above: Performed By: #### P INR, 93933-9, 83811-7, CBCA, 97317-1, CMP, 4548-4, 6873-4 #### [facility] ([id number]) [address] [place] [address] 68046 #### HA1C #### [facility] ([id number]) [address] [place] [address], [address] [place] [address] Potassium [Moles/Vol] 3.7 mmol/L Normal 3.5-5.0 [facility] Comment on above: Performed By: #### P INR, 65406-4, 67857-6, CBCA, 52594-2, CMP, 4548-4, 6873-4 #### [facility] ([id number]) [address] [place] [address] 37316 #### HA1C #### [facility] ([id number]) [address] [place] [address], [address] [place] [address] CBC AND AUTO DIFFon 05-28-20 24 ABSOLUTE BASOPHIL 0.0 X10E9/L Normal 0.0-0.2 [facility] Comment on above: Performed By: #### P INR, 36270-4, 24587-0, CBCA, 19745-0, CMP, 4548-4, 6873-4 #### [facility] ([id number]) [address] [place] [address] 88413 #### HA1C #### [facility] ([id number]) [address], [address] [place] [address] ABSOLUTE NEUTROPHIL 5.2 X10E9/L Normal 1.5-6.6 [facility] Comment on above: Performed By: #### P INR, 58507-7, 24210-5, CBCA, 58413-6, CMP, 4548-4, 6873-4 #### [facility] ([id number]) [address] [place] [address] 06412 #### HA1C #### [facility] ([id number]) [address] [facility], [address] [place] [address] Basophils/100 WBC (Bld) 0.2 % Normal [facility] Comment on above: Performed By: #### P INR, 40863-8, 41114-1, CBCA, 09924-2, CMP, 4548-4, 6873-4 #### [facility] ([id number]) [address] [place] [address] 24276 #### HA1C #### [facility] ([id number]) [address], [address] [place] [address] Eosinophils (Bld) [#/Vol] 0.1 10*3/uL Normal 0.0-0.4 [facility] Comment on above: Performed By: #### P INR, 03142-7, 08220-7, CBCA, 26317-6, CMP, 4548-4, 6873-4 #### [facility] ([id number]) [address] [place] [address] 69443 #### HA1C #### [facility] ([id number]) [address], [address] [place] [address] Eosinophils/100 WBC (Bld) 1.1 % Normal [facility] Comment on above: Performed By: #### P INR, 38133-1, 92736-8, CBCA, 11836-3, CMP, 4548-4, 6873-4 #### [facility] ([id number]) [address] [place] [address] 56047 #### HA1C #### [facility] ([id number]) [address] [facility] [facility] [address] [place] [address] Erythrocyte distribution width (RBC) [Ratio] 15.6 % High 11.5-15.0 [facility] Comment on above: Performed By: #### P INR, 15436-3, 77630-9, CBCA, 86695-8, CMP, 4548-4, 6873-4 #### [facility] ([id number]) [address] [place] [address] 95871 #### HA1C #### [facility] ([id number]) [address] [facility] [address] [place] [address] Hematocrit (Bld) [Volume fraction] 33.8 % Low 39-49 [facility] Comment on above: Performed By: #### P INR, 95366-0, 04941-8, CBCA, 53175-2, CMP, 4548-4, 6873-4 #### [facility] ([id number]) [address] [place] [address] 17396 #### HA1C #### [facility] ([id number]) [address] [facility] [address] [place] [address] Hemoglobin (Bld) [Mass/Vol] 11.2 g/dL Low 13.0-17.0 [facility] Comment on above: Performed By: #### P INR, 96672-9, 28245-8, CBCA, 49793-4, CMP, 4548-4, 6873-4 #### [facility] ([id number]) [address] [place] [address] 26689 #### HA1C #### [facility] ([id number]) [address], [address] [place] [address] Lymphocytes (Bld) [#/Vol] 0.6 10*3/uL Low 1.0-3.5 [facility] Comment on above: Performed By: #### P INR, 24840-1, 84512-7, CBCA, 04693-2, CMP, 4548-4, 6873-4 #### [facility] ([id number]) [address] [place] [address] 54189 #### HA1C #### [facility] ([id number]) [address] [facility] [place] [address] Lymphocytes/100 WBC (Bld) 9.4 % Normal [facility] Comment on above: Performed By: #### P INR, 90292-5, 25206-1, CBCA, 37702-6, CMP, 4548-4, 6873-4 #### [facility] ([id number]) [address] [place] [address] 49731 #### HA1C #### [facility] ([id number]) [address], [address] [place] [address] MCH (RBC) [Entitic mass] 27.4 pg Normal 27-34 [facility] Comment on above: Performed By: #### P INR, 79708-1, 00721-2, CBCA, 94483-7, CMP, 4548-4, 6873-4 #### [facility] ([id number]) [address] [place] [address] 97747 #### HA1C #### [facility] ([id number]) [address] [facility] [place] [address] MCHC (RBC) [Mass/Vol] 33.2 g/dL Normal 32-36 [facility] Comment on above: Performed By: #### P INR, 18418-2, 69559-2, CBCA, 20902-9, CMP, 4548-4, 6873-4 #### [facility] ([id number]) [address] [place] [address] 47564 #### HA1C #### [facility] ([id number]) [address], [address] [place] [address] MCV (RBC) [Entitic vol] 83 fL Normal 80-100 [facility] Comment on above: Performed By: #### P INR, 06213-0, 61235-1, CBCA, 12258-9, CMP, 4548-4, 6873-4 #### [facility] ([id number]) [address] [place] [address] 91053 #### HA1C #### [facility] ([id number]) [address], [address] [place] [address] Monocytes (Bld) [#/Vol] 0.6 10*3/uL Normal 0-0.9 [facility] Comment on above: Performed By: #### P INR, 46052-4, 11450-1, CBCA, 48703-7, CMP, 4548-4, 6873-4 #### [facility] ([id number]) [address] [place] [address] 84875 #### HA1C #### [facility] ([id number]) [address], [address] [place] [address] Monocytes/100 WBC (Bld) 9.1 % Normal [facility] Comment on above: Performed By: #### P INR, 26037-9, 86847-7, CBCA, 09320-1, CMP, 4548-4, 6873-4 #### [facility] ([id number]) [address] [place] [address] 17867 #### HA1C #### [facility] ([id number]) [address], [address] [place] [address] Neutrophils/100 WBC (Bld) 80.2 % Normal [facility] Comment on above: Performed By: #### P INR, 84498-8, 43727-0, CBCA, 37913-9, CMP, 4548-4, 6873-4 #### [facility] ([id number]) [address] [place] [address] 40357 #### HA1C #### [facility] ([id number]) [address], [address] [place] [address] Platelet mean volume (Bld) [Entitic vol] 7.8 fL Normal 7-12 [facility] Comment on above: Performed By: #### P INR, 86744-6, 22040-3, CBCA, 28402-3, CMP, 4548-4, 6873-4 #### [facility] ([id number]) [address] [place] [address] #### HA1C #### [facility] ([id number]) [address], [address] [place] [address] Platelets (Bld) [#/Vol] 263 10*3/uL Normal 150-450 [facility] Comment on above: Performed By: #### P INR, 38609-2, 99764-3, CBCA, 95756-6, CMP, 4548-4, 6873-4 #### [facility] ([id number]) [address] [place] [address] #### HA1C #### [facility] ([id number]) [address], [address] [place] [address] RBC COUNT 4.09 X10E12/L Low 4.10-5.70 [facility] Comment on above: Performed By: #### P INR, 12084-7, 27992-0, CBCA, 54140-8, CMP, 4548-4, 6873-4 #### [facility] ([id number]) [address] [place] [address] #### HA1C #### [facility] ([id number]) [address], [address] [place] [address] WBC (Bld) [#/Vol] 6.5 10*3/uL Normal 4.0-11.0 [facility] Comment on above: Performed By: #### P INR, 67775-9, 47755-8, CBCA, 05601-3, CMP, 4548-4, 6873-4 #### [facility] ([id number]) [address] [place] [address] #### HA1C #### [facility] ([id number]) [address] [facility], [address] [place] [address] COMPREHENSIVE METABOLIC PANE [place] 05-28-2024 Albumin [Mass/Vol] 3.6 g/dL Normal 3.2-5.3 [facility] Comment on above: Performed By: #### P INR, 95763-8, 05243-0, CBCA, 16350-9, CMP, 4548-4, 6873-4 #### [facility] ([id number]) [address] [place] [address] #### HA1C #### [facility] ([id number]) [address], [address] [place] [address] ALP [Catalytic activity/Vol] 91 U/L Normal 39-130 [facility] Comment on above: Performed By: #### P INR, 24463-1, 40086-4, CBCA, 15485-7, CMP, 4548-4, 6873-4 #### [facility] ([id number]) [address] [place] [address] #### HA1C #### [facility] ([id number]) [address], [address] [place] [address] ALT [Catalytic activity/Vol] 21 U/L Normal 0-40 [facility] Comment on above: Performed By: #### P INR, 77976-3, 89955-8, CBCA, 28964-0, CMP, 4548-4, 6873-4 #### [facility] ([id number]) [address] [place] [address] #### HA1C #### [facility] ([id number]) [address], [address] [place] [address] Anion gap [Moles/Vol] 12 mmol/L Normal 5-15 [facility] Comment on above: Performed By: #### P INR, 33969-6, 65570-6, CBCA, 10452-8, CMP, 4548-4, 6873-4 #### [facility] ([id number]) [address] [place] [address] #### HA1C #### [facility] ([id number]) [address] [address], [address] [place] [address] AST [Catalytic activity/Vol] 18 U/L Normal 0-41 [facility] Comment on above: Performed By: #### P INR, 86242-4, 11936-4, CBCA, 37895-0, CMP, 4548-4, 6873-4 #### [facility] ([id number]) [address] [place] [address] #### HA1C #### [facility] ([id number]) [address] [address] [place] [address] Bilirubin [Mass/Vol] 0.7 mg/dL Normal 0.3-1.2 [facility] Comment on above: Performed By: #### P INR, 92039-4, 24875-7, CBCA, 66412-8, CMP, 4548-4, 6873-4 #### [facility] ([id number]) [address] [place] [address] #### HA1C #### [facility] ([id number]) [address], [address] [place] [address] Calcium [Mass/Vol] 8.9 mg/dL Normal 8.5-10.5 [facility] Comment on above: Performed By: #### P INR, 65059-9, 88732-7, CBCA, 84960-7, CMP, 4548-4, 6873-4 #### [facility] ([id number]) [address] [place] [address] #### HA1C #### [facility] ([id number]) [address], [address] [place] [address] Chloride [Moles/Vol] 98 mmol/L Normal 98-109 [facility] Comment on above: Performed By: #### P INR, 60531-8, 77989-2, CBCA, 87442-6, CMP, 4548-4, 6873-4 #### [facility] ([id number]) [address] [place] [address] #### HA1C #### [facility] ([id number]) [address], [address] [place] [address] CO2 [Moles/Vol] 23 mmol/L Normal 22-32 [facility] [facility] Comment on above: Performed By: #### P INR, 07976-4, 40446-3, CBCA, 31002-2, CMP, 4548-4, 6873-4 #### [facility] ([id number]) [address] [place] [address] 70863 #### HA1C #### [facility] ([id number]) [address], [address] [place] [address] Creatinine [Mass/Vol] 1.88 mg/dL High 0.70-1.20 [facility] Comment on above: Result Comment: METH OD TRACEABLE TO IDMS STANDARD Performed By: #### P INR, 47472-8, 38485-8, CBCA, 03749-2, CMP, 4548-4, 6873-4 #### [facility] ([id number]) [address] [place] [address] 50269 #### HA1C #### [facility] ([id number]) [address] [facility], [address] [place] [address] GFR/1.73 sq M.predicted among non-blacks MDRD (S/P/Bld) [Vol rate/Area] 38 mL/min/{1.73_m2} Low >59 [facility] Comment on above: Result Comment: Reported eGFR is based on the CKD-EPI 2020 equation that does not use a race coefficient. Performed By: #### P INR, 63054-1, 98166-5, CBCA, 69730-0, CMP, 4548-4, 6873-4 #### [facility] ([id number]) [address] [place] [address] 18001 #### HA1C #### [facility] ([id number]) [address] [facility] [facility], [address] [place] [address] Glucose [Mass/Vol] 157 mg/dL High 65-99 [facility] Comment on above: Performed By: #### P INR, 73978-3, 35242-6, CBCA, 63239-6, CMP, 4548-4, 6873-4 #### [facility] ([id number]) [address] [place] [address] 56658 #### HA1C #### [facility] ([id number]) [address], [address] [place] [address] Potassium [Moles/Vol] 3.6 mmol/L Normal 3.5-5.0 [facility] Comment on above: Performed By: #### P INR, 80702-9, 62768-4, CBCA, 29563-1, CMP, 4548-4, 6873-4 #### [facility] ([id number]) [address] [place] [address] 97591 #### HA1C #### [facility] ([id number]) [address], [address] [place] [address] Protein [Mass/Vol] 6.8 g/dL Normal 6.0-8.0 [facility] Comment on above: Performed By: #### P INR, 89454-1, 24363-6, CBCA, 84179-9, CMP, 4548-4, 6873-4 #### [facility] ([id number]) [address] [place] [address] 53145 #### HA1C #### [facility] ([id number]) [address], [address] [place] [address] Sodium [Moles/Vol] 133 mmol/L Low 134-146 [facility] Comment on above: Performed By: #### P INR, 98874-4, 70121-9, CBCA, 53857-8, CMP, 4548-4, 6873-4 #### [facility] ([id number]) [address] [place] [address] 49833 #### HA1C #### [facility] ([id number]) [address], [address] [place] [address] Urea nitrogen [Mass/Vol] 87 mg/dL High 5-27 [facility] Comment on above: Performed By: #### P INR, 24126-5, 00201-6, CBCA, 22999-9, CMP, 4548-4, 6873-4 #### [facility] ([id number]) [address] [place] [address] 58356 #### HA1C #### [facility] ([id number]) [address], [address] [place] [address] Glucose Glucometer (BldC) [M ass/Vol]on 05-28-2024 Glucose [Mass/Vol] 148 mg/dL High 65-99 [facility] Glucose [Mass/Vol] 174 mg/dL High 65-99 [facility] Glucose [Mass/Vol] 177 mg/dL High 65-99 [facility] MAGNESIUMon 05-28-2024 Magnesium [Mass/Vol] 2.1 mg/dL Normal 1.8-2.6 [facility] Comment on above: Performed By: #### P INR, 08304-4, 60252-1, CBCA, 17998-3, CMP, 4548-4, 6873-4 #### [facility] ([id number]) [address] [place] [address] 65626 #### HA1C #### [facility] ([id number]) [address], [address] [place] [address] PHOSPHORUSon 05-28-2024 Phosphate [Mass/Vol] 4.4 mg/dL Normal 2.4-4.9 [facility] Comment on above: Performed By: #### P INR, 01990-5, 01552-0, CBCA, 09976-3, CMP, 4548-4, 6873-4 #### [facility] ([id number]) [address] [place] [address] 99206 #### HA1C #### [facility] ([id number]) [address], [address] [place] [address] POTASSIUMon 05-28-2024 Potassium [Moles/Vol] 3.6 mmol/L Normal 3.5-5.0 [facility] Comment on above: Performed By: #### P INR, 91577-4, 87533-3, CBCA, 55237-5, CMP, 4548-4, 6873-4 #### [facility] ([id number]) [address] [place] [address] 99817 #### HA1C #### [facility] ([id number]) [address] [place] [address], [address] [place] [address] CBC AND AUTO DIFFon 05-27-20 24 ABSOLUTE BASOPHIL 0.0 X10E9/L Normal 0.0-0.2 [facility] Comment on above: Performed By: #### P INR, 56934-4, 87280-3, CBCA, 71406-6, CMP, 4548-4, 6873-4 #### [facility] ([id number]) [address] [place] [address] 42898 #### HA1C #### [facility] ([id number]) [address] [place] [address], [address] [place] [address] ABSOLUTE NEUTROPHIL 12.1 X10E9/L High 1.5-6.6 [facility] Comment on above: Performed By: #### P INR, 19126-4, 40555-2, CBCA, 28812-2, CMP, 4548-4, 6873-4 #### [facility] ([id number]) [address] [place] [address] 91084 #### HA1C #### [facility] ([id number]) [address] [place] [address], [address] [place] [address] Basophils/100 WBC (Bld) 0.3 % Normal [facility] Comment on above: Performed By: #### P INR, 79624-5, 71438-9, CBCA, 59381-4, CMP, 4548-4, 6873-4 #### [facility] ([id number]) [address] [place] [address] 51685 #### HA1C #### [facility] ([id number]) [address], [address] [place] [address] Eosinophils (Bld) [#/Vol] 0.0 10*3/uL Normal 0.0-0.4 [facility] Comment on above: Performed By: #### P INR, 53500-1, 77657-6, CBCA, 29285-9, CMP, 4548-4, 6873-4 #### [facility] ([id number]) [address] [place] [address] 15700 #### HA1C #### [facility] ([id number]) [address] [facility] [address] [place] [address] Eosinophils/100 WBC (Bld) 0.2 % Normal [facility] Comment on above: Performed By: #### P INR, 44890-5, 67381-0, CBCA, 21193-0, CMP, 4548-4, 6873-4 #### [facility] ([id number]) [address] [place] [address] 62008 #### HA1C #### [facility] ([id number]) [address], [address] [place] [address] Erythrocyte distribution width (RBC) [Ratio] 16.2 % High 11.5-15.0 [facility] Comment on above: Performed By: #### P INR, 10679-2, 11090-1, CBCA, 25393-1, CMP, 4548-4, 6873-4 #### [facility] ([id number]) [address] [place] [address] 52424 #### HA1C #### [facility] ([id number]) [address] [place] [address] Hematocrit (Bld) [Volume fraction] 39.5 % Normal 39-49 [facility] Comment on above: Performed By: #### P INR, 95639-9, 55158-1, CBCA, 82895-0, CMP, 4548-4, 6873-4 #### [facility] ([id number]) [address] [place] [address] 04711 #### HA1C #### [facility] ([id number]) [address], [address] [place] [address] Hemoglobin (Bld) [Mass/Vol] 13.2 g/dL Normal 13.0-17.0 [facility] Comment on above: Performed By: #### P INR, 84596-4, 18585-4, CBCA, 19789-0, CMP, 4548-4, 6873-4 #### [facility] ([id number]) [address] [place] [address] 63863 #### HA1C #### [facility] ([id number]) [address], [address] [place] [address] Lymphocytes (Bld) [#/Vol] 0.4 10*3/uL Low 1.0-3.5 [facility] Comment on above: Performed By: #### P INR, 53970-7, 47265-9, CBCA, 40015-1, CMP, 4548-4, 6873-4 #### [facility] ([id number]) [address] [place] [address] 69986 #### HA1C #### [facility] ([id number]) [address], [address] [place] [address] Lymphocytes/100 WBC (Bld) 3.2 % Normal [facility] Comment on above: Performed By: #### P INR, 52327-0, 78335-2, CBCA, 62276-3, CMP, 4548-4, 6873-4 #### [facility] ([id number]) [address] [place] [address] 42829 #### HA1C #### [facility] ([id number]) [address] [place] [address] MCH (RBC) [Entitic mass] 27.5 pg Normal 27-34 [facility] Comment on above: Performed By: #### P INR, 84218-5, 73616-0, CBCA, 52621-8, CMP, 4548-4, 6873-4 #### [facility] ([id number]) [address] [place] [address] 64200 #### HA1C #### [facility] ([id number]) [address] [facility] [place] [address] MCHC (RBC) [Mass/Vol] 33.4 g/dL Normal 32-36 [facility] Comment on above: Performed By: #### P INR, 14110-9, 86960-2, CBCA, 37453-1, CMP, 4548-4, 6873-4 #### [facility] ([id number]) [address] [place] [address] 22819 #### HA1C #### [facility] ([id number]) [address] [facility] [address] [place] [address] MCV (RBC) [Entitic vol] 82 fL Normal 80-100 [facility] Comment on above: Performed By: #### P INR, 51111-0, 28144-1, CBCA, 66067-9, CMP, 4548-4, 6873-4 #### [facility] ([id number]) [address] [place] [address] 14286 #### HA1C #### [facility] ([id number]) [address] [facility] [address] [place] [address] Monocytes (Bld) [#/Vol] 1.0 10*3/uL High 0-0.9 [facility] Comment on above: Performed By: #### P INR, 28908-8, 85521-2, CBCA, 20721-5, CMP, 4548-4, 6873-4 #### [facility] ([id number]) [address] [place] [address] 23071 #### HA1C #### [facility] ([id number]) [address] [facility] [place] [address] Monocytes/100 WBC (Bld) 7.1 % Normal [facility] Comment on above: Performed By: #### P INR, 50358-6, 47781-7, CBCA, 35890-4, CMP, 4548-4, 6873-4 #### [facility] ([id number]) [address] [place] [address] 16034 #### HA1C #### [facility] ([id number]) [address] [facility], [address] [place] [address] Neutrophils/100 WBC (Bld) 89.2 % Normal [facility] Comment on above: Performed By: #### P INR, 36835-0, 38003-1, CBCA, 88138-5, CMP, 4548-4, 6873-4 #### [facility] ([id number]) [address] [place] [address] 66781 #### HA1C #### [facility] ([id number]) [address], [address] [place] [address] Platelet mean volume (Bld) [Entitic vol] 8.0 fL Normal 7-12 [facility] Comment on above: Performed By: #### P INR, 71893-1, 45816-1, CBCA, 23443-6, CMP, 4548-4, 6873-4 #### [facility] ([id number]) [address] [place] [address] 03769 #### HA1C #### [facility] ([id number]) [address] [facility] [facility], [address] [place] [address] Platelets (Bld) [#/Vol] 296 10*3/uL Normal 150-450 [facility] Comment on above: Performed By: #### P INR, 97027-4, 87488-4, CBCA, 80047-5, CMP, 4548-4, 6873-4 #### [facility] ([id number]) [address] [place] [address] 65679 #### HA1C #### [facility] ([id number]) [address] [facility], [address] [place] [address] RBC COUNT 4.79 X10E12/L Normal 4.10-5.70 [facility] Comment on above: Performed By: #### P INR, 76897-3, 38417-0, CBCA, 58857-6, CMP, 4548-4, 6873-4 #### [facility] ([id number]) [address] [place] [address] 21321 #### HA1C #### [facility] ([id number]) [address] [facility], [address] [place] [address] WBC (Bld) [#/Vol] 13.5 10*3/uL High 4.0-11.[address] [facility] Comment on above: Performed By: #### P INR, 04255-0, 45593-1, CBCA, 13935-6, CMP, 4548-4, 6873-4 #### [facility] ([id number]) [address] [place] [address] 47548 #### HA1C #### [facility] ([id number]) [address] [facility] [place] [address] COMPREHENSIVE METABOLIC PANE [place] 05-27-2024 Albumin [Mass/Vol] 4.6 g/dL Normal 3.2-5.3 [facility] Comment on above: Performed By: #### P INR, 91185-5, 69229-0, CBCA, 68133-5, CMP, 4548-4, 6873-4 #### [facility] ([id number]) [address] [place] [address] 22768 #### HA1C #### [facility] ([id number]) [address] [facility] [facility], [address] [place] [address] ALP [Catalytic activity/Vol] 112 U/L Normal 39-130 [facility] Comment on above: Performed By: #### P INR, 41052-5, 54547-6, CBCA, 52645-3, CMP, 4548-4, 6873-4 #### [facility] ([id number]) [address] [place] [address] 31204 #### HA1C #### [facility] ([id number]) [address] [facility] [facility], [address] [place] [address] ALT [Catalytic activity/Vol] 23 U/L Normal 0-40 [facility] Comment on above: Performed By: #### P INR, 07635-1, 06152-5, CBCA, 37188-1, CMP, 4548-4, 6873-4 #### [facility] ([id number]) [address] [place] [address] 77780 #### HA1C #### [facility] ([id number]) [address] [facility], [address] [place] [address] Anion gap [Moles/Vol] 13 mmol/L Normal 5-15 [facility] Comment on above: Performed By: #### P INR, 92476-0, 01641-7, CBCA, 53631-1, CMP, 4548-4, 6873-4 #### [facility] ([id number]) [address] [place] [address] 94614 #### HA1C #### [facility] ([id number]) [address], [address] [place] [address] AST [Catalytic activity/Vol] 21 U/L Normal 0-41 [facility] Comment on above: Performed By: #### P INR, 84402-0, 17070-6, CBCA, 32757-1, CMP, 4548-4, 6873-4 #### [facility] ([id number]) [address] [place] [address] 09691 #### HA1C #### [facility] ([id number]) [address] [facility], [address] [place] [address] Bilirubin [Mass/Vol] 0.7 mg/dL Normal 0.3-1.2 [facility] Comment on above: Performed By: #### P INR, 10673-0, 08868-1, CBCA, 96532-2, CMP, 4548-4, 6873-4 #### [facility] ([id number]) [address] [place] [address] 64279 #### HA1C #### [facility] ([id number]) [address], [address] [place] [address] Calcium [Mass/Vol] 9.6 mg/dL Normal 8.5-10.5 [facility] Comment on above: Performed By: #### P INR, 77681-7, 17394-7, CBCA, 31179-6, CMP, 4548-4, 6873-4 #### [facility] ([id number]) [address] [place] [address] 74163 #### HA1C #### [facility] ([id number]) [address], [address] [place] [address] Chloride [Moles/Vol] 94 mmol/L Low 98-109 [facility] Comment on above: Performed By: #### P INR, 41635-3, 06292-1, CBCA, 48753-3, CMP, 4548-4, 6873-4 #### [facility] ([id number]) [address] [place] [address] 43187 #### HA1C #### [facility] ([id number]) [address], [address] [place] [address] CO2 [Moles/Vol] 21 mmol/L Low 22-32 [facility] Comment on above: Performed By: #### P INR, 66928-8, 82711-3, CBCA, 03294-6, CMP, 4548-4, 6873-4 #### [facility] ([id number]) [address] [place] [address] 40830 #### HA1C #### [facility] ([id number]) [address], [address] [place] [address] Creatinine [Mass/Vol] 2.75 mg/dL High 0.70-1.20 [facility] Comment on above: Result Comment: METH OD TRACEABLE TO IDMS STANDARD Performed By: #### P INR, 34340-4, 41538-2, CBCA, 72244-2, CMP, 4548-4, 6873-4 #### [facility] ([id number]) [address] [place] [address] 61077 #### HA1C #### [facility] ([id number]) [address], [address] [place] [address] GFR/1.73 sq M.predicted among non-blacks MDRD (S/P/Bld) [Vol rate/Area] 24 mL/min/{1.73_m2} Low >59 [facility] Comment on above: Result Comment: Reported eGFR is based on the CKD-EPI 2020 equation that does not use a race coefficient. Performed By: #### P INR, 34037-7, 93646-2, CBCA, 61824-0, CMP, 4548-4, 6873-4 #### [facility] ([id number]) [address] [place] [address] 16080 #### HA1C #### [facility] ([id number]) [address], [address] [place] [address] Glucose [Mass/Vol] 223 mg/dL High 65-99 [facility] Comment on above: Performed By: #### P INR, 49380-7, 58697-6, CBCA, 82334-4, CMP, 4548-4, 6873-4 #### [facility] ([id number]) [address] [place] [address] 23546 #### HA1C #### [facility] ([id number]) [address], [address] [place] [address] Potassium [Moles/Vol] 4.9 mmol/L Normal 3.5-5.0 [facility] Comment on above: Performed By: #### P INR, 14803-0, 44679-5, CBCA, 82859-5, CMP, 4548-4, 6873-4 #### [facility] ([id number]) [address] [place] [address] 96910 #### HA1C #### [facility] ([id number]) [address], [address] [place] [address] Protein [Mass/Vol] 8.2 g/dL High 6.0-8.0 [facility] Comment on above: Performed By: #### P INR, 09492-9, 45793-0, CBCA, 28576-5, CMP, 4548-4, 6873-4 #### [facility] ([id number]) [address] [place] [address] 94246 #### HA1C #### [facility] ([id number]) [address], [address] [place] [address] Sodium [Moles/Vol] 128 mmol/L Low 134-146 [facility] Comment on above: Performed By: #### P INR, 30299-7, 09130-1, CBCA, 26500-7, CMP, 4548-4, 6873-4 #### [facility] ([id number]) [address] [place] [address] 86150 #### HA1C #### [facility] ([id number]) [address] [facility] [place] [address] Urea nitrogen [Mass/Vol] 106 mg/dL High 5-27 [facility] Comment on above: Performed By: #### P INR, 20967-7, 68162-0, CBCA, 41839-7, CMP, 4548-4, 6873-4 #### [facility] ([id number]) [address] [place] [address] 86376 #### HA1C #### [facility] ([id number]) [address] [facility], [address] [place] [address] Glucose Glucometer (BldC) [M ass/Vol]on 05-27-2024 Glucose [Mass/Vol] 170 mg/dL High 65-99 [facility] MAGNESIUMon 05-27-2024 Magnesium [Mass/Vol] 2.4 mg/dL Normal 1.8-2.6 [facility] Comment on above: Performed By: #### P INR, 41195-9, 63259-7, CBCA, 26046-9, CMP, 4548-4, 6873-4 #### [facility] ([id number]) [address] [place] [address] 92599 #### HA1C #### [facility] ([id number]) [address] [facility] [place] [address] Troponin I.cardiac High sens itivity method [Mass/Vol]on 05-27-2024 1 HOUR TROP I, HIGH SENSITIVITY 11 ng/L Normal <21 [facility] Comment on above: Performed By: #### P INR, 35711-8, 94625-2, CBCA, 47114-8, CMP, 4548-4, 6873-4 #### [facility] ([id number]) [address] [place] [address] 55609 #### HA1C #### [facility] ([id number]) [address] [place] [address], [address] [place] [address] TROPONIN I, HIGH SENSITIVITY 10 ng/L Normal <21 [facility] Comment on above: Performed By: #### P INR, 39701-9, 38059-0, CBCA, 60044-0, CMP, 4548-4, 6873-4 #### [facility] ([id number]) [address] [place] [address] #### HA1C #### [facility] ([id number]) [address] [place] [address], [address] [place] [address] URN MACROSCOPIC NURon 2023 BILIRUBIN ALLYN Negative Normal NEG [facility] Comment on above: Performed By: #### P INR, 31550-5, 33175-4, CBCA, 28981-4, CMP, 4548-4, 6873-4 #### [facility] ([id number]) [address] [place] [address] #### HA1C #### [facility] ([id number]) [address] [place] [address], [address] [place] [address] BLOOD/HGB ALLYN Large Abnormal NEG [facility] Comment on above: Performed By: #### P INR, 96922-0, 45358-1, CBCA, 67871-5, CMP, 4548-4, 6873-4 #### [facility] ([id number]) [address] [place] [address] #### HA1C #### [facility] ([id number]) [address] [facility], [address] [place] [address] GLUCOSE ALLYN Negative Normal NEG [facility] Comment on above: Performed By: #### P INR, 73629-3, 32078-1, CBCA, 17639-2, CMP, 4548-4, 6873-4 #### [facility] ([id number]) [address] [place] [address] #### HA1C #### [facility] ([id number]) [address] [place] [address], [address] [place] [address] KETONES ALLYN Negative Normal NEG [facility] Comment on above: Performed By: #### P INR, 05651-5, 40043-3, CBCA, 67819-0, CMP, 4548-4, 6873-4 #### [facility] ([id number]) [address] [place] [address] #### HA1C #### [facility] ([id number]) [address] [address], [address] [place] [address] LEUKOCYTE ESTERASE ALLYN Negative Normal NEG [facility] Comment on above: Performed By: #### P INR, 31413-9, 55827-8, CBCA, 33423-5, CMP, 4548-4, 6873-4 #### [facility] ([id number]) [address] [place] [address] #### HA1C #### [facility] ([id number]) [address], [address] [place] [address] NITRITE ALLYN Negative Normal NEG [facility] Comment on above: Performed By: #### P INR, 14741-5, 73010-8, CBCA, 75846-0, CMP, 4548-4, 6873-4 #### [facility] ([id number]) [address] [place] [address] #### HA1C #### [facility] ([id number]) [address], [address] [place] [address] PH ALLYN 5.5 Normal 5.0-8.5 [facility] Comment on above: Performed By: #### P INR, 27112-5, 74446-1, CBCA, 84720-1, CMP, 4548-4, 6873-4 #### [facility] ([id number]) [address] [place] [address] #### HA1C #### [facility] ([id number]) [address] [facility], [address] [place] [address] PROTEIN ALLYN 30 mg/dL Abnormal NEG [facility] Comment on above: Performed By: #### P INR, 31769-3, 63257-6, CBCA, 67673-7, CMP, 4548-4, 6873-4 #### [facility] ([id number]) [address] [place] [address] #### HA1C #### [facility] ([id number]) [address] [facility] [facility], [address] [place] [address] SPECIFIC GRAVITY ALLYN 1.025 Normal 1.003-1.035 [facility] Comment on above: Performed By: #### P INR, 60563-5, 65677-3, CBCA, 45505-2, CMP, 4548-4, 6873-4 #### [facility] ([id number]) [address] [place] [address] #### HA1C #### [facility] ([id number]) [address] [facility] [facility], [address] [place] [address] UROBILINOGEN ALLYN 0.2 eu/dL Normal <1.1 [facility] Comment on above: Performed By: #### P INR, 21136-8, 58642-9, CBCA, 63367-8, CMP, 4548-4, 6873-4 #### [facility] ([id number]) [address] [place] [address] #### HA1C #### [facility] ([id number]) [address], [address] [place] [address] BASIC METABOLIC PANLon 05-12 Anion gap [Moles/Vol] 8 mmol/L Normal 5-15 [facility] Comment on above: Performed By: #### P INR, 76838-9, 19023-8, CBCA, 90670-6, CMP, 4548-4, 6873-4 #### [facility] ([id number]) [address] [place] [address] #### HA1C #### [facility] ([id number]) [address], [address] [place] [address] Calcium [Mass/Vol] 8.9 mg/dL Normal 8.5-10.5 [facility] Comment on above: Performed By: #### P INR, 09592-6, 85870-2, CBCA, 96970-3, CMP, 4548-4, 6873-4 #### [facility] ([id number]) [address] [place] [address] 40[address] #### HA1C #### [facility] ([id number]) [address] [place] [address] Chloride [Moles/Vol] 102 mmol/L Normal 98-109 [facility] Comment on above: Performed By: #### P INR, 34755-9, 61495-7, CBCA, 37390-8, CMP, 4548-4, 6873-4 #### [facility] ([id number]) [address] [place] [address] [place] [address] #### HA1C #### [facility] ([id number]) [address], [address] [place] [address] CO2 [Moles/Vol] 26 mmol/L Normal 22-32 [facility] Comment on above: Performed By: #### P INR, 68615-0, 08218-9, CBCA, 71660-9, CMP, 4548-4, 6873-4 #### [facility] ([id number]) [address] [place] [address] #### HA1C #### [facility] ([id number]) [address] [facility], [address] [address] Creatinine [Mass/Vol] 0.68 mg/dL Low 0.70-1.20 [facility] Comment on above: Result Comment: METH OD TRACEABLE TO IDMS STANDARD Performed By: #### P INR, 48114-3, 72029-2, CBCA, 09137-9, CMP, 4548-4, 6873-4 #### [facility] ([id number]) [address] [place] [address] #### HA1C #### [facility] ([id number]) [address], [facility] [address] [place] [address] eGFR (CKD-EPI) NON-RACE DEPENDENT >90 Normal >59 [facility] Comment on above: Result Comment: Reported eGFR is based on the CKD-EPI 2020 equation that does not use a race coefficient. Performed By: #### P INR, 52559-9, 04992-4, CBCA, 12060-9, CMP, 4548-4, 6873-4 #### [facility] ([id number]) [address] [place] [address] #### HA1C #### [facility] ([id number]) [address] [facility] [place] [address] Glucose [Mass/Vol] 143 mg/dL High 65-99 [facility] Comment on above: Performed By: #### P INR, 98779-0, 33057-9, CBCA, 00181-9, CMP, 4548-4, 6873-4 #### [facility] ([id number]) [address] [place] [address] #### HA1C #### [facility] ([id number]) [address], [address] [place] [address] Potassium [Moles/Vol] 3.7 mmol/L Normal 3.5-5.0 [facility] Comment on above: Performed By: #### P INR, 29700-6, 60041-7, CBCA, 67280-0, CMP, 4548-4, 6873-4 #### [facility] ([id number]) [address] [place] [address] #### HA1C #### [facility] ([id number]) [address] [facility] [place] [address] Sodium [Moles/Vol] 136 mmol/L Normal 134-146 [facility] Comment on above: Performed By: #### P INR, 02249-6, 39660-8, CBCA, 74722-2, CMP, 4548-4, 6873-4 #### [facility] ([id number]) [address] [place] [address] #### HA1C #### [facility] ([id number]) [address] [facility] [place] [address] Urea nitrogen [Mass/Vol] 22 mg/dL Normal 5-27 [facility] Comment on above: Performed By: #### P INR, 57452-2, 48134-1, CBCA, 38749-2, CMP, 4548-4, 6873-4 #### [facility] ([id number]) [address] [place] [address] #### HA1C #### [facility] ([id number]) [address], [address] [place] [address] CBC AND AUTO DIFFon 05-12-20 24 ABSOLUTE BASOPHIL 0.1 X10E9/L Normal 0.0-0.2 [facility] Comment on above: Performed By: #### P INR, 07877-8, 69364-5, CBCA, 79713-4, CMP, 4548-4, 6873-4 #### [facility] ([id number]) [address] [place] [address] #### HA1C #### [facility] ([id number]) [address], [address] [place] [address] ABSOLUTE NEUTROPHIL 2.2 X10E9/L Normal 1.5-6.6 [facility] Comment on above: Performed By: #### P INR, 99382-0, 46644-7, CBCA, 56924-7, CMP, 4548-4, 6873-4 #### [facility] ([id number]) [address] [place] [address] #### HA1C #### [facility] ([id number]) [address], [address] [place] [address] Basophils/100 WBC (Bld) 1.7 % Normal [facility] Comment on above: Performed By: #### P INR, 15514-3, 16854-4, CBCA, 66563-8, CMP, 4548-4, 6873-4 #### [facility] ([id number]) [address] [place] [address] #### HA1C #### [facility] ([id number]) [address], [address] [place] [address] Eosinophils (Bld) [#/Vol] 0.1 10*3/uL Normal 0.0-0.4 [facility] Comment on above: Performed By: #### P INR, 09258-7, 07872-0, CBCA, 81990-7, CMP, 4548-4, 6873-4 #### [facility] ([id number]) [address] [place] [address] #### HA1C #### [facility] ([id number]) [address], [address] [place] [address] Eosinophils/100 WBC (Bld) 3.2 % Normal [facility] Comment on above: Performed By: #### P INR, 95507-1, 94767-0, CBCA, 57685-2, CMP, 4548-4, 6873-4 #### [facility] ([id number]) [address] [place] [address] #### HA1C #### [facility] ([id number]) [address] [facility] [place] [address] Erythrocyte distribution width (RBC) [Ratio] 15.2 % High 11.5-15.0 [facility] Comment on above: Performed By: #### P INR, 80169-9, 78782-6, CBCA, 56444-7, CMP, 4548-4, 6873-4 #### [facility] ([id number]) [address] [place] [address] #### HA1C #### [facility] ([id number]) [address], [address] [place] [address] Hematocrit (Bld) [Volume fraction] 33.1 % Low 39-49 [facility] Comment on above: Performed By: #### P INR, 52268-8, 92342-4, CBCA, 45938-2, CMP, 4548-4, 6873-4 #### [facility] ([id number]) [address] [place] [address] #### HA1C #### [facility] ([id number]) [address], [address] [place] [address] Hemoglobin (Bld) [Mass/Vol] 11.3 g/dL Low 13.0-17.0 [facility] Comment on above: Performed By: #### P INR, 72059-6, 15674-5, CBCA, 50887-9, CMP, 4548-4, 6873-4 #### [facility] ([id number]) [address] [place] [address] 69[address] #### HA1C #### [facility] ([id number]) [address], [address] [place] [address] Lymphocytes (Bld) [#/Vol] 1.5 10*3/uL Normal 1.0-3.5 [facility] Comment on above: Performed By: #### P INR, 44986-3, 75876-8, CBCA, 36122-7, CMP, 4548-4, 6873-4 #### [facility] ([id number]) [address] [place] [address] 9[address]91 #### HA1C #### [facility] ([id number]) [address], [address] [place] [address] Lymphocytes/100 WBC (Bld) 35.4 % Normal [facility] Comment on above: Performed By: #### P INR, 39486-0, 30098-6, CBCA, 81383-2, CMP, 4548-4, 6873-4 #### [facility] ([id number]) [address] [place] [address]51 #### HA1C #### [facility] ([id number]) [address], [address] [place] [address] MCH (RBC) [Entitic mass] 28.9 pg Normal 27-34 [facility] Comment on above: Performed By: #### P INR, 87078-3, 00370-9, CBCA, 81592-2, CMP, 4548-4, 6873-4 #### [facility] ([id number]) [address] [place] [address] #### HA1C #### [facility] ([id number]) [address], [address] [place] [address] MCHC (RBC) [Mass/Vol] 34.2 g/dL Normal 32-36 [facility] Comment on above: Performed By: #### P INR, 31155-3, 61133-2, CBCA, 52086-9, CMP, 4548-4, 6873-4 #### [facility] ([id number]) [address] [place] [address]486 #### HA1C #### [facility] ([id number]) [address], [address] [place] [address] MCV (RBC) [Entitic vol] 84 fL Normal 80-100 [facility] Comment on above: Performed By: #### P INR, 89980-4, 71614-6, CBCA, 61260-8, CMP, 4548-4, 6873-4 #### [facility] ([id number]) [address] [place] [address] 98228 #### HA1C #### [facility] ([id number]) [address], [address] [place] [address] Monocytes (Bld) [#/Vol] 0.3 10*3/uL Normal 0-0.9 [facility] Comment on above: Performed By: #### P INR, 42644-4, 89704-6, CBCA, 33423-2, CMP, 4548-4, 6873-4 #### [facility] ([id number]) [address] [place] [address] 98093 #### HA1C #### [facility] ([id number]) [address], [address] [place] [address] Monocytes/100 WBC (Bld) 7.8 % Normal [facility] Comment on above: Performed By: #### P INR, 59980-8, 95793-7, CBCA, 69476-8, CMP, 4548-4, 6873-4 #### [facility] ([id number]) [address] [place] [address] 15397 #### HA1C #### [facility] ([id number]) [address] [facility] [place] [address] Neutrophils/100 WBC (Bld) 51.9 % Normal [facility] Comment on above: Performed By: #### P INR, 78704-4, 78584-0, CBCA, 44586-3, CMP, 4548-4, 6873-4 #### [facility] ([id number]) [address] [place] [address] 74738 #### HA1C #### [facility] ([id number]) [address], [address] [place] [address] Platelet mean volume (Bld) [Entitic vol] 7.1 fL Normal 7-12 [facility] Comment on above: Performed By: #### P INR, 57472-1, 81829-2, CBCA, 78361-5, CMP, 4548-4, 6873-4 #### [facility] ([id number]) [address] [place] [address] 71923 #### HA1C #### [facility] ([id number]) [address], [address] [place] [address] Platelets (Bld) [#/Vol] 310 10*3/uL Normal 150-450 [facility] Comment on above: Performed By: #### P INR, 34255-6, 68195-0, CBCA, 63815-1, CMP, 4548-4, 6873-4 #### [facility] ([id number]) [address] [place] [address] 88914 #### HA1C #### [facility] ([id number]) [address], [address] [place] [address] RBC COUNT 3.93 X10E12/L Low 4.10-5.70 [facility] Comment on above: Performed By: #### P INR, 91787-2, 25727-5, CBCA, 67594-6, CMP, 4548-4, 6873-4 #### [facility] ([id number]) [address] [place] [address] 72958 #### HA1C #### [facility] ([id number]) [address] [facility] [place] [address] WBC (Bld) [#/Vol] 4.3 10*3/uL Normal 4.0-11.0 [facility] Comment on above: Performed By: #### P INR, 52316-2, 79796-9, CBCA, 18995-9, CMP, 4548-4, 6873-4 #### [facility] ([id number]) [address] [place] [address] #### HA1C #### [facility] ([id number]) [address], [address] [place] [address] CT BRAIN WO CONTon CT BRAIN WO CONT CT BRAIN WO CONT CT HEAD WITHOUT CONTRAST HISTORY: Headache COMPARISON: CT head 04/10/2024; MRI brain 04/12/2024 TECHNIQUE: Routine noncontrast CT head. All CT scans at this facility use dose modulation, iterative reconstruction, and/or weight based dosing when appropriate to reduce radiation dose to as low as reasonably achievable. FINDINGS: Low attenuation within the anterior right temporal lobe. No mass effect. Right periventricular encephalomalacia. No evidence of ventricular outflow obstruction. No acute intra-axial or extra-axial hemorrhage. Visualized paranasal sinuses and temporal bone structures are clear. No depressed skull fracture. IMPRESSION: * No acute intracranial abnormalities. * Area of low-attenuation within the right temporal lobe likely relates to an evolving area of ischemia as seen on previous MRI. Finalized by Elkin Yuan MD on 05/12/2024 3:05 AM Normal [facility] PROTIME AND INRon 05-12-2024 INR Coag (PPP) [Relative time] 1.2 {INR} High 0.8-1.1 [facility] Comment on above: Performed By: #### P INR, 30066-8, 27932-3, CBCA, 64181-6, CMP, 4548-4, 6873-4 #### [facility] ([id number]) [address] [place] [address] 00552 #### HA1C #### [facility] ([id number]) [address] [facility], [address] [place] [address] PT Coag (PPP) [Time] 14.0 s High 9.8-13.2 [facility] Comment on above: Result Comment: NEW REFERENCE RANGE Performed By: #### P INR, 01356-9, 89100-8, CBCA, 16406-9, CMP, 4548-4, 6873-4 #### [facility] ([id number]) [address] [place] [address] 07728 #### HA1C #### [facility] ([id number]) [address] [facility] [place] [address] aPTT Coag (PPP) [Time]on aPTT Coag (Bld) [Time] 30 s Normal 26-[address] [facility] Comment on above: Result Comment: NEW REFERENCE RANGE Performed By: #### P INR, 83058-5, 46913-1, CBCA, 92704-8, CMP, 4548-4, 6873-4 #### [facility] ([id number]) [address] [place] [address], [place] [address] #### HA1C #### [facility] ([id number]) [address], [address] [place] [address] CBC AND AUTO DIFFon 04-21-20 ABSOLUTE BASOPHIL 0.0 X10E9/L Normal 0.0-0.2 [facility] Comment on above: Performed By: #### C BCA, CMP ####[facility] ([id number])[address], [address] [place] [address] ABSOLUTE NEUTROPHIL 2.8 X10E9/L Normal 1.5-6.6 [facility] Comment on above: Performed By: #### C BCA, CMP ####[facility] ([id number])[address], [address], [place] [address] Basophils/100 WBC (Bld) 0.7 % Normal P [facility] Comment on above: Performed By: #### C BCA, CMP ####[facility] ([id number])[address], [address] [place] [address] Eosinophils (Bld) [#/Vol] 0.2 10*3/uL Normal 0.0-0.4 [facility] Comment on above: Performed By: #### C BCA, CMP ####[facility] ([id number])[address], [address] [place] [address] Eosinophils/100 WBC (Bld) 3.3 % Normal [facility] Comment on above: Performed By: #### C BCA, CMP ####[facility] ([id number])[address], [address], [place] [address] Erythrocyte distribution width (RBC) [Ratio] 16.2 % High 11.5-15.0 [facility] Comment on above: Performed By: #### C BCA, CMP ####[facility] ([id number])[address], [place] [address] Hematocrit (Bld) [Volume fraction] 28.7 % Low 39-49 [facility] Comment on above: Performed By: #### C BCA, CMP ####[facility] ([id number])[address], [place] [address] Hemoglobin (Bld) [Mass/Vol] 10.2 g/dL Low 13.0-17.0 [facility] Comment on above: Performed By: #### C BCA, CMP ####[facility] ([id number])[address] [address] [place] [address] Lymphocytes (Bld) [#/Vol] 1.3 10*3/uL Normal 1.0-3.5 [facility] Comment on above: Performed By: #### C BCA, CMP ####[facility] ([id number])[address] [address], [place] [address] Lymphocytes/100 WBC (Bld) 28.0 % Normal [facility] Comment on above: Performed By: #### C BCA, CMP ####[facility] ([id number])[address] [address] [place] [address] MCH (RBC) [Entitic mass] 31.7 pg Normal 27-34 [facility] Comment on above: Performed By: #### C BCA, CMP ####[facility] ([id number])[address], [place] [address] MCHC (RBC) [Mass/Vol] 35.6 g/dL Normal 32-36 [facility] Comment on above: Performed By: #### C BCA, CMP ####[facility] ([id number])[address], [place] [address] MCV (RBC) [Entitic vol] 89 fL Normal 80-100 [facility] Comment on above: Performed By: #### C ZACHARY, CMP ####[facility] ([id number])[address] [place] [address] Monocytes (Bld) [#/Vol] 0.5 10*3/uL Normal 0-0.9 [facility] Comment on above: Performed By: #### C ZACHARY, CMP ####[facility] ([id number])[address], [address], [place] [address] Monocytes/100 WBC (Bld) 9.6 % Normal [facility] Comment on above: Performed By: #### C ZACHARY, CMP ####[facility] ([id number])[address], [place] [address] Neutrophils/100 WBC (Bld) 58.4 % Normal [facility] Comment on above: Performed By: #### C ZACHARY, CMP ####[facility] ([id number])[address] [place] [address] Platelet mean volume (Bld) [Entitic vol] 7.3 fL Normal 7-12 [facility] Comment on above: Performed By: #### C ZACHARY, CMP ####[facility] ([id number])[address] [address] [place] [address] Platelets (Bld) [#/Vol] 249 10*3/uL Normal 150-450 [facility] Comment on above: Performed By: #### C ZACHARY, CMP ####[facility] ([id number])[address] [place] [address] RBC COUNT 3.23 X10E12/L Low 4.10-5.70 [facility] Comment on above: Performed By: #### C BCA, CMP ####[facility] ([id number])[address], [address], [place] [address] WBC (Bld) [#/Vol] 4.8 10*3/uL Normal 4.0-11.0 [facility] Comment on above: Performed By: #### C BCA, CMP ####[facility] ([id number])[address], [address], [place] [address] COMPREHENSIVE METABOLIC PANE [place] 04-21-2024 Albumin [Mass/Vol] 3.6 g/dL Normal 3.2-5.3 [facility] Comment on above: Performed By: #### C BCA, CMP ####[facility] ([id number])[address], [place] [address] ALP [Catalytic activity/Vol] 78 U/L Normal 39-130 [facility] Comment on above: Performed By: #### C BCA, CMP ####[facility] ([id number])[address], [place] [address] ALT [Catalytic activity/Vol] 27 U/L Normal 0-40 [facility] Comment on above: Performed By: #### C BCA, CMP ####[facility] ([id number])[address], [place] [address] Anion gap [Moles/Vol] 9 mmol/L Normal 5-15 [facility] Comment on above: Performed By: #### C BCA, CMP ####[facility] ([id number])[address], [address], [place] [address] AST [Catalytic activity/Vol] 13 U/L Normal 0-41 [facility] Comment on above: Performed By: #### C BCA, CMP ####[facility] ([id number])[address], [place] [address] Bilirubin [Mass/Vol] 0.4 mg/dL Normal 0.3-1.2 [facility] Comment on above: Performed By: #### C BCA, CMP ####[facility] ([id number])[address] [address] [place] [address] Calcium [Mass/Vol] 8.8 mg/dL Normal 8.5-10.5 [facility] Comment on above: Performed By: #### C BCA, CMP ####[facility] ([id number])[address] [address], [place] [address] Chloride [Moles/Vol] 100 mmol/L Normal 98-109 [facility] Comment on above: Performed By: #### C BCA, CMP ####[facility] ([id number])[address] [address], [place] [address] CO2 [Moles/Vol] 28 mmol/L Normal 22-32 [facility] Comment on above: Performed By: #### C BCA, CMP ####[facility] ([id number])[address] [address], [place] [address] Creatinine [Mass/Vol] 0.70 mg/dL Normal 0.60-1.30 [facility] Comment on above: Result Comment: METH OD TRACEABLE TO IDMS STANDARD Performed By: #### C BCA, CMP ####[facility] ([id number])[address] [address] eGFR (CKD-EPI) NON-RACE DEPENDENT >90 Normal >59 [facility] Comment on above: Result Comment: Reported eGFR is based on the CKD-EPI 2020 equation that does not use a race coefficient. Performed By: #### C BCA, CMP ####[facility] ([id number])[address] [address] [place] [address] Glucose [Mass/Vol] 159 mg/dL High 65-99 [facility] Comment on above: Performed By: #### C BCA, CMP ####[facility] ([id number])[address], [place] [address] Potassium [Moles/Vol] 4.2 mmol/L Normal 3.5-5.0 [facility] Comment on above: Performed By: #### C BCA, CMP ####[facility] ([id number])[address], [place] [address] Protein [Mass/Vol] 5.6 g/dL Low 6.0-8.0 [facility] Comment on above: Performed By: #### C BCA, CMP ####[facility] ([id number])[address], [place] [address] Sodium [Moles/Vol] 137 mmol/L Normal 134-146 [facility] Comment on above: Performed By: #### C BCA, CMP ####[facility] ([id number])[address] [place] [address] Urea nitrogen [Mass/Vol] 17 mg/dL Normal 5-27 [facility] Comment on above: Performed By: #### C BCA, CMP ####[facility] ([id number])[address] [place] [address] Glucose Glucometer (BldC) [M ass/Vol]on 04-21-2024 Glucose [Mass/Vol] 234 mg/dL High 65-99 [facility] Glucose [Mass/Vol] 143 mg/dL High 65-99 [facility] CBC AND AUTO DIFFon 04-20-20 ABSOLUTE BASOPHIL 0.1 X10E9/L Normal 0.0-0.2 [facility] Comment on above: Performed By: #### C ZACHARY, CMP, 02523-4 #### [facility] ([id number]) [address], [address] [place] [address] ABSOLUTE NEUTROPHIL 2.9 X10E9/L Normal 1.5-6.6 [facility] Comment on above: Performed By: #### C BCA, CMP, 20309-3 #### [facility] ([id number]) [address], [address] [place] [address] Basophils/100 WBC (Bld) 1.1 % Normal [facility] Comment on above: Performed By: #### C BCA, CMP, 66420-0 #### [facility] ([id number]) [address], [address] [place] [address] Eosinophils (Bld) [#/Vol] 0.1 10*3/uL Normal 0.0-0.4 [facility] Comment on above: Performed By: #### C BCA, CMP, 30626-4 #### [facility] ([id number]) [address], [address] [place] [address] Eosinophils/100 WBC (Bld) 2.7 % Normal [facility] Comment on above: Performed By: #### C BCA, CMP, 97404-2 #### [facility] ([id number]) [address], [address] [place] [address] Erythrocyte distribution width (RBC) [Ratio] 15.8 % High 11.5-15.0 [facility] Comment on above: Performed By: #### C BCA, CMP, 60184-5 #### [facility] ([id number]) [address], [address] [place] [address] Hematocrit (Bld) [Volume fraction] 30.3 % Low 39-49 [facility] Comment on above: Performed By: #### C BCA, CMP, 58868-3 #### [facility] ([id number]) [address], [address] [place] [address] Hemoglobin (Bld) [Mass/Vol] 10.5 g/dL Low 13.0-17.0 [facility] Comment on above: Performed By: #### C BCA, CMP, 87600-4 #### [facility] ([id number]) [address], [address] [place] [address] Lymphocytes (Bld) [#/Vol] 1.2 10*3/uL Normal 1.0-3.5 [facility] Comment on above: Performed By: #### C BCA, CMP, 36819-6 #### [facility] ([id number]) [address], [address] [place] [address] Lymphocytes/100 WBC (Bld) 25.4 % Normal [facility] Comment on above: Performed By: #### Thais BCA, CMP, 13410-6 #### [facility] ([id number]) [address] [address] [place] [address] MCH (RBC) [Entitic mass] 30.5 pg Normal 27-34 [facility] Comment on above: Performed By: #### Thais BCA, CMP, 81932-7 #### [facility] ([id number]) [address], [address] [place] [address] MCHC (RBC) [Mass/Vol] 34.5 g/dL Normal 32-36 [facility] Comment on above: Performed By: #### Thais BCA, CMP, 82009-5 #### [facility] ([id number]) [address] [address] [place] [address] MCV (RBC) [Entitic vol] 88 fL Normal 80-100 [facility] Comment on above: Performed By: #### Thais BCA, CMP, 52664-2 #### [facility] ([id number]) [address] [address] [place] [address] Monocytes (Bld) [#/Vol] 0.4 10*3/uL Normal 0-0.9 [facility] Comment on above: Performed By: #### Thais BCA, CMP, 14392-2 #### [facility] ([id number]) [address] [address] [place] [address] Monocytes/100 WBC (Bld) 9.3 % Normal [facility] Comment on above: Performed By: #### C BCA, CMP, 65650-8 #### [facility] ([id number]) [address], [address] [place] [address] Neutrophils/100 WBC (Bld) 61.5 % Normal [facility] Comment on above: Performed By: #### C BCA, CMP, 42304-0 #### [facility] ([id number]) [address], [address] [place] [address] Platelet mean volume (Bld) [Entitic vol] 7.1 fL Normal 7-12 [facility] Comment on above: Performed By: #### C BCA, CMP, 06842-3 #### [facility] ([id number]) [address], [address] [place] [address] Platelets (Bld) [#/Vol] 291 10*3/uL Normal 150-450 [facility] Comment on above: Performed By: #### C BCA, CMP, 42978-2 #### [facility] ([id number]) [address], [address] [place] [address] RBC COUNT 3.43 X10E12/L Low 4.10-5.70 [facility] Comment on above: Performed By: #### C BCA, CMP, 20109-2 #### [facility] ([id number]) [address], [address] [place] [address] WBC (Bld) [#/Vol] 4.7 10*3/uL Normal 4.0-11.0 [facility] Comment on above: Performed By: #### C BCA, CMP, 55079-5 #### [facility] ([id number]) [address], [address] [place] [address] COMPREHENSIVE METABOLIC PANE [place] 04-20-2024 Albumin [Mass/Vol] 3.9 g/dL Normal 3.2-5.3 [facility] Comment on above: Performed By: #### C BCA, CMP, 99316-7 #### [facility] ([id number]) [address], [address] [place] [address] ALP [Catalytic activity/Vol] 94 U/L Normal 39-130 [facility] Comment on above: Performed By: #### C BCA, CMP, 17955-6 #### [facility] ([id number]) [address], [address] [place] [address] ALT [Catalytic activity/Vol] 41 U/L High 0-40 [facility] Comment on above: Performed By: #### C BCA, CMP, 97268-6 #### [facility] ([id number]) [address], [address] [place] [address] Anion gap [Moles/Vol] 9 mmol/L Normal 5-15 [facility] Comment on above: Performed By: #### C BCA, CMP, 30931-5 #### [facility] ([id number]) [address], [address] [place] [address] AST [Catalytic activity/Vol] 22 U/L Normal 0-41 [facility] Comment on above: Performed By: #### C BCA, CMP, 86376-7 #### [facility] ([id number]) [address], [address] [place] [address] Bilirubin [Mass/Vol] 0.6 mg/dL Normal 0.3-1.2 [facility] Comment on above: Performed By: #### C BCA, CMP, 28269-1 #### [facility] ([id number]) [address], [address] [place] [address] Calcium [Mass/Vol] 9.1 mg/dL Normal 8.5-10.5 [facility] Comment on above: Performed By: #### C ZACHARY CMP, 10043-4 #### [facility] ([id number]) [address], [address] [place] [address] Chloride [Moles/Vol] 98 mmol/L Normal 98-109 [facility] Comment on above: Performed By: #### C BCA, CMP, 27258-7 #### [facility] ([id number]) [address], [address] [place] [address] CO2 [Moles/Vol] 30 mmol/L Normal 22-32 [facility] Comment on above: Performed By: #### C ZACHARY, CMP, 10488-4 #### [facility] ([id number]) [address], [address] [place] [address] Creatinine [Mass/Vol] 0.69 mg/dL Normal 0.60-1.30 [facility] Comment on above: Result Comment: METH OD TRACEABLE TO IDMS STANDARD Performed By: #### C NAHOMY SHARMA, 26617-5 #### [facility] ([id number]) [address], [address] [place] [address] eGFR (CKD-EPI) NON-RACE DEPENDENT >90 Normal >59 [facility] Comment on above: Result Comment: Reported eGFR is based on the CKD-EPI 2020 equation that does not use a race coefficient. Performed By: #### C ZACHARY CMP, 74301-3 #### [facility] ([id number]) [address], [address] [place] [address] Glucose [Mass/Vol] 204 mg/dL High 65-99 [facility] Comment on above: Performed By: #### C BCA, CMP, 00535-0 #### [facility] ([id number]) [address], [address] [place] [address] Potassium [Moles/Vol] 4.3 mmol/L Normal 3.5-5.0 [facility] Comment on above: Performed By: #### C ZACHARY, CMP, 31080-9 #### [facility] ([id number]) [address], [address] [place] [address] Protein [Mass/Vol] 6.2 g/dL Normal 6.0-8.0 [facility] Comment on above: Performed By: #### C ZACHARY, CMP, 90031-8 #### [facility] ([id number]) [address], [address] [place] [address] Sodium [Moles/Vol] 137 mmol/L Normal 134-146 [facility] Comment on above: Performed By: #### Thais SHARMA, CMP, 24331-7 #### [facility] ([id number]) [address], [address] [place] [address] Urea nitrogen [Mass/Vol] 11 mg/dL Normal 5-27 [facility] Comment on above: Performed By: #### Thais SHARMA, CMP, 74977-6 #### [facility] ([id number]) [address], [address] [place] [address] Glucose Glucometer (dC) [M ass/Vol]on 04-20-2024 Glucose [Mass/Vol] 287 mg/dL High 65-99 [facility] Glucose [Mass/Vol] 263 mg/dL High 65-99 [facility] Glucose [Mass/Vol] 231 mg/dL High 65-99 [facility] Glucose [Mass/Vol] 176 mg/dL High 65-99 [facility] CBC AND AUTO DIFFon 04-19-20 ABSOLUTE BASOPHIL 0.0 X10E9/L Normal 0.0-0.2 [facility] Comment on above: Performed By: #### C BCA, CMP, 58202-9 #### [facility] ([id number]) [address], [address] [place] [address] ABSOLUTE NEUTROPHIL 2.1 X10E9/L Normal 1.5-6.6 [facility] Comment on above: Performed By: #### C BCA, CMP, 64599-5 #### [facility] ([id number]) [address], [address] [place] [address] Basophils/100 WBC (Bld) 1.2 % Normal [facility] Comment on above: Performed By: #### C BCA, CMP, 31277-4 #### [facility] ([id number]) [address], [address] [place] [address] Eosinophils (Bld) [#/Vol] 0.1 10*3/uL Normal 0.0-0.4 [facility] Comment on above: Performed By: #### C ZACHARY, CMP, 73612-3 #### [facility] ([id number]) [address] [place] [address] Eosinophils/100 WBC (Bld) 3.6 % Normal [facility] Comment on above: Performed By: #### Thais BCA, CMP, 25212-0 #### [facility] ([id number]) [address], [address] [place] [address] Erythrocyte distribution width (RBC) [Ratio] 15.5 % High 11.5-15.0 [facility] Comment on above: Performed By: #### Thais SHARMA, CMP, 08602-9 #### [facility] ([id number]) [address], [address] [place] [address] Hematocrit (Bld) [Volume fraction] 29.4 % Low 39-49 [facility] Comment on above: Performed By: #### Thais BCA, CMP, 90626-5 #### [facility] ([id number]) [address], [address] [place] [address] Hemoglobin (Bld) [Mass/Vol] 10.1 g/dL Low 13.0-17.0 [facility] Comment on above: Performed By: #### C BCA, CMP, 53042-2 #### [facility] ([id number]) [address], [address] [place] [address] Lymphocytes (Bld) [#/Vol] 1.0 10*3/uL Normal 1.0-3.5 [facility] Comment on above: Performed By: #### C BCA, CMP, 91902-6 #### [facility] ([id number]) [address], [address] [place] [address] Lymphocytes/100 WBC (Bld) 28.5 % Normal [facility] Comment on above: Performed By: #### Thais SHARMA, CMP, 28641-3 #### [facility] ([id number]) [address], [address] [place] [address] MCH (RBC) [Entitic mass] 30.8 pg Normal 27-34 [facility] Comment on above: Performed By: #### Thais BCA, CMP, 81876-5 #### [facility] ([id number]) [address], [address] [place] [address] MCHC (RBC) [Mass/Vol] 34.4 g/dL Normal 32-36 [facility] Comment on above: Performed By: #### Thais BCA, CMP, 98861-2 #### [facility] ([id number]) [address], [address] [place] [address] MCV (RBC) [Entitic vol] 89 fL Normal 80-100 [facility] Comment on above: Performed By: #### Thais BCA, CMP, 24862-5 #### [facility] ([id number]) [address], [address] [place] [address] Monocytes (Bld) [#/Vol] 0.3 10*3/uL Normal 0-0.9 [facility] Comment on above: Performed By: #### Thais BCA, CMP, 12200-7 #### [facility] ([id number]) [address], [address] [place] [address] Monocytes/100 WBC (Bld) 8.3 % Normal [facility] Comment on above: Performed By: #### C BCA, CMP, 80888-9 #### [facility] ([id number]) [address], [address] [place] [address] Neutrophils/100 WBC (Bld) 58.4 % Normal [facility] Comment on above: Performed By: #### C BCA, CMP, 94023-2 #### [facility] ([id number]) [address], [address] [place] [address] Platelet mean volume (Bld) [Entitic vol] 7.1 fL Normal 7-12 [facility] Comment on above: Performed By: #### C BCA, CMP, 64885-7 #### [facility] ([id number]) [address], [address] [place] [address] Platelets (Bld) [#/Vol] 264 10*3/uL Normal 150-450 [facility] Comment on above: Performed By: #### C BCA, CMP, 26534-2 #### [facility] ([id number]) [address], [address] [place] [address] RBC COUNT 3.29 X10E12/L Low 4.10-5.70 [facility] Comment on above: Performed By: #### C BCA, CMP, 19735-9 #### [facility] ([id number]) [address], [address] [place] [address] WBC (Bld) [#/Vol] 3.6 10*3/uL Low 4.0-11.0 [facility] Comment on above: Performed By: #### C BCA, CMP, 28330-9 #### [facility] ([id number]) [address], [address] [place] [address] COMPREHENSIVE METABOLIC PANE [place] 06-24-2024 Albumin [Mass/Vol] 3.8 g/dL Normal 3.2-5.3 [facility] Comment on above: Performed By: #### C BCA, CMP, 05008-4 #### [facility] ([id number]) [address] [place] [address] ALP [Catalytic activity/Vol] 91 U/L Normal 39-130 [facility] Comment on above: Performed By: #### C BCA, CMP, 20302-2 #### [facility] ([id number]) [address], [address] [place] [address] ALT [Catalytic activity/Vol] 40 U/L Normal 0-40 [facility] Comment on above: Performed By: #### C BCA, CMP, 43227-8 #### [facility] ([id number]) [address], [address] [place] [address] Anion gap [Moles/Vol] 10 mmol/L Normal 5-15 [facility] Comment on above: Performed By: #### C BCA, CMP, 68227-2 #### [facility] ([id number]) [address], [address] [place] [address] AST [Catalytic activity/Vol] 24 U/L Normal 0-41 [facility] Comment on above: Performed By: #### C BCA, CMP, 16531-3 #### [facility] ([id number]) [address], [address] [place] [address] Bilirubin [Mass/Vol] 0.7 mg/dL Normal 0.3-1.2 [facility] Comment on above: Performed By: #### C BCA, CMP, 28596-4 #### [facility] ([id number]) [address], [address] [place] [address] Calcium [Mass/Vol] 9.0 mg/dL Normal 8.5-10.5 [facility] Comment on above: Performed By: #### C ZACHARY, CMP, 72599-1 #### [facility] ([id number]) [address], [address] [place] [address] Chloride [Moles/Vol] 100 mmol/L Normal 98-109 [facility] Comment on above: Performed By: #### C BCA, CMP, 97104-0 #### [facility] ([id number]) [address], [address] [place] [address] CO2 [Moles/Vol] 27 mmol/L Normal 22-32 [facility] Comment on above: Performed By: #### C BCA, CMP, 17997-9 #### [facility] ([id number]) [address], [address] [place] [address] Creatinine [Mass/Vol] 0.62 mg/dL Normal 0.60-1.30 [facility] Comment on above: Result Comment: METH OD TRACEABLE TO IDMS STANDARD Performed By: #### C NAHOMY SHARMA, 18195-0 #### [facility] ([id number]) [address], [address] [place] [address] eGFR (CKD-EPI) NON-RACE DEPENDENT >90 Normal >59 [facility] Comment on above: Result Comment: Reported eGFR is based on the CKD-EPI 2020 equation that does not use a race coefficient. Performed By: #### C ZACHARY CMP, 48719-3 #### [facility] ([id number]) [address], [address] [place] [address] Glucose [Mass/Vol] 124 mg/dL High 65-99 [facility] Comment on above: Performed By: #### C BCA, CMP, 40431-2 #### [facility] ([id number]) [address], [address] [place] [address] Potassium [Moles/Vol] 3.8 mmol/L Normal 3.5-5.0 [facility] Comment on above: Performed By: #### C BCA, CMP, 12967-9 #### [facility] ([id number]) [address], [address] [place] [address] Protein [Mass/Vol] 6.0 g/dL Normal 6.0-8.0 [facility] Comment on above: Performed By: #### C BCA, CMP, 40036-1 #### [facility] ([id number]) [address], [address] [place] [address] Sodium [Moles/Vol] 137 mmol/L Normal 134-146 [facility] Comment on above: Performed By: #### Thais SHARMA, CMP, 97351-8 #### [facility] ([id number]) [address], [address] [place] [address] Urea nitrogen [Mass/Vol] 7 mg/dL Normal 5-27 [facility] Comment on above: Performed By: #### Thais BCA, CMP, 21506-9 #### [facility] ([id number]) [address], [address] [place] [address] Folate [Mass/Vol]on 04-19-20 FOLIC ACID 8.1 ng/mL Normal >5.8 [facility] Comment on above: Result Comment: NEW REFERENCE RANGE Performed By: #### Thais BCA, CMP, 23437-8 #### [facility] ([id number]) [address] [place] [address] Glucose Glucometer (BldC) [M ass/Vol]on 04-19-2024 Glucose [Mass/Vol] 142 mg/dL High 65-99 [facility] Glucose [Mass/Vol] 129 mg/dL High 65-99 [facility] Glucose [Mass/Vol] 119 mg/dL High 65-99 [facility] Glucose [Mass/Vol] 132 mg/dL High 65-99 [facility] HGB AND HCTon 04-19-2024 Hematocrit (Bld) [Volume fraction] 32.0 % Low 39-49 [facility] Comment on above: Performed By: #### C BCA, CMP, 20514-7 #### [facility] ([id number]) [address] [place] [address], [address] [place] [address] Hemoglobin (Bld) [Mass/Vol] 11.1 g/dL Low 13.0-17.0 [facility] Comment on above: Performed By: #### C BCA, CMP, 76498-2 #### [facility] ([id number]) [address] [place] [address], [address] [place] [address] Surgical Pathologyon 024 Surgical Pathology Normal [facility] Comment on above: Result Comment: [facility] [address] [place] [address] Surgical Pathology Consultation Patient Name:VASHTI RIVERA:1955 (Age: 68)Gender:MTaken:04/19/2024eported:04/22/2024hysician(s):Joshua Craft MD ( )Copy To: Rec. #:[id number]: #[id number] Final Pathologic Diagnosis 1. Transverse colon polyp: Tubular adenoma. 2. Transverse colon polyp #2; EMR: Tubular adenoma fragments. Report Electronically Signed Out st/04/22/2024Bee Ontiveros MD Interpretation performed at [facility], [address] [place], [address], License number: [id number]. Clinical History Iron deficiency anemia, unspecified iron deficiency anemia type. Gross Description 1. Received in formalin labeled BRYSON, transverse colon polyp are eight pale black feathery soft tissue bits admixed with friable vegetative material, 0.1-0.6 cm. The specimen is filtered and entirely submitted in a single cassette. (1, ns, [id number],m8) DM. 2. Received in formalin labeled RIVERA, transverse colon polyp #2 is a pale-black polyp, 1.1 x 0.8 x 0.5 cm. The resection margin is inked black. The specimen is serially sectioned and entirely submitted in cassette A. Also received in the container are eight pale-black feathery soft tissue fragments, 0.1-0.6 cm. These are submitted in cassette B. (2, ns, [id number],m8) DM. dm/04/20/2024NSK Specimen(s) Received 1: Transverse colon polyp 2: Transverse colon polyp #2; EMR Fee Codes(s): 1; 78007 2; 54937 THYROID PROFILEon 04-19-2024 Free T4 [Mass/Vol] 1.13 ng/dL Normal 0.61-1.60 [facility] Comment on above: Performed By: #### C ZACHARY, CMP, 62241-7 #### [facility] ([id number]) [address] [facility] [place] [address] TSH 5.50 uIU/mL High 0.49-4.67 [facility] Comment on above: Performed By: #### C BCA, CMP, 38317-3 #### [facility] ([id number]) [address] [facility] [place] [address] Thiamine (Bld) [Mass/Vol]on 04-19-2024 THIAMIN VITAMIN B1 See Below Normal [facility] Comment on above: Result Comment: NOTE TEST RESULT FLAG UNIT REF.RANGE -------- Vitamin B1 (TDP), Whole Blood 95.2 nmol/L 84.3-213.3 This assay measures the concentration of thiamine diphosphate (TDP), the primary active form of vitamin B1. Approximately 90 percent of vitamin B1 present in whole blood is TDP. Thiamine and thiamine monophosphate, which comprise the remaining 10 percent, are not measured. This test was developed and its performance characteristics determined by [facility] [place] [facility] It has not been cleared or approved by the FDA. -[facility] is regulated under CLIA as qualified to perform high-complexity testing. This test is used for clinical purposes. It should not be regarded as investigational or for research. Test Performed By: [facility] [address] [place] [address] [employer]everber[employer] Skimmer: Bijan Murphy III, M.D. CLIA #[id number] Performed By: #### C BCA, CMP, 97216-0 #### [facility] ([id number]) [address] [address] VITAMIN B12on 04-19-2024 Cobalamin (Vitamin B12) [Mass/Vol] pg/mL High 180-914 [facility] Comment on above: Performed By: #### C BCA, CMP, 82291-1 #### [facility] ([id number]) [address] [address] [place] [address] CBC AND AUTO DIFFon 04-18-20 ABSOLUTE BASOPHIL 0.0 X10E9/L Normal 0.0-0.2 [facility] Comment on above: Performed By: #### C BCA, CMP, 04253-7 #### [facility] ([id number]) [address] [address] ABSOLUTE NEUTROPHIL 2.5 X10E9/L Normal 1.5-6.6 [facility] Comment on above: Performed By: #### C BCA, CMP, 32141-8 #### [facility] ([id number]) [address] [address] Basophils/100 WBC (Bld) 0.9 % Normal [facility] Comment on above: Performed By: #### C BCA, CMP, 21574-0 #### [facility] ([id number]) [address] [address] [place] [address] Eosinophils (Bld) [#/Vol] 0.1 10*3/uL Normal 0.0-0.4 [facility] Comment on above: Performed By: #### C ZACHARY CMP, 76811-6 #### [facility] ([id number]) [address] [address] [place] [address] Eosinophils/100 WBC (Bld) 2.4 % Normal [facility] Comment on above: Performed By: #### C ZACHARY, CMP, 86027-4 #### [facility] ([id number]) [address] [address] [place] [address] Erythrocyte distribution width (RBC) [Ratio] 15.9 % High 11.5-15.0 [facility] Comment on above: Performed By: #### Thais SHARMA CMP, 07026-2 #### [facility] ([id number]) [address] [facility] [address] [place] [address] Hematocrit (Bld) [Volume fraction] 27.5 % Low 39-49 [facility] Comment on above: Performed By: #### Thais SHARMA, CMP, 80958-7 #### [facility] ([id number]) [address] [address] [place] [address] Hemoglobin (Bld) [Mass/Vol] 9.6 g/dL Low 13.0-17.0 [facility] Comment on above: Performed By: #### Thais SHARMA, CMP, 71677-0 #### [facility] ([id number]) [address], [facility] [address] [place] [address] Lymphocytes (Bld) [#/Vol] 0.8 10*3/uL Low 1.0-3.5 [facility] Comment on above: Performed By: #### Thais SHARMA, CMP, 93754-1 #### [facility] ([id number]) [address] [place] [address] Lymphocytes/100 WBC (Bld) 22.0 % Normal [facility] Comment on above: Performed By: #### Thais SHARMA CMP, 58700-8 #### [facility] ([id number]) [address], [facility] [address] [place] [address] MCH (RBC) [Entitic mass] 31.2 pg Normal 27-34 [facility] Comment on above: Performed By: #### Thais SHARMA, CMP, 45490-7 #### [facility] ([id number]) [address] [facility] [address] [place] [address] MCHC (RBC) [Mass/Vol] 34.8 g/dL Normal 32-36 [facility] Comment on above: Performed By: #### Thais SHARMA CMP, 56448-8 #### [facility] ([id number]) [address] [facility] [address] [place] [address] MCV (RBC) [Entitic vol] 90 fL Normal 80-100 [facility] Comment on above: Performed By: #### Thais SHARMA, CMP, 30796-3 #### [facility] ([id number]) [address] [place] [address] Monocytes (Bld) [#/Vol] 0.2 10*3/uL Normal 0-0.9 [facility] Comment on above: Performed By: #### Thais SHARMA CMP, 14160-6 #### [facility] ([id number]) [address] [place] [address] Monocytes/100 WBC (Bld) 6.4 % Normal [facility] Comment on above: Performed By: #### Thais SHARMA, CMP, 92439-2 #### [facility] ([id number]) [address] [place] [address] Neutrophils/100 WBC (Bld) 68.3 % Normal [facility] Comment on above: Performed By: #### C BCA, CMP, 51240-6 #### [facility] ([id number]) [address], [address] [place] [address] Platelet mean volume (Bld) [Entitic vol] 6.9 fL Low 7-12 [facility] Comment on above: Performed By: #### C BCA, CMP, 05845-6 #### [facility] ([id number]) [address], [address] [place] [address] Platelets (Bld) [#/Vol] 251 10*3/uL Normal 150-450 [facility] Comment on above: Performed By: #### C BCA, CMP, 69236-6 #### [facility] ([id number]) [address], [address] [place] [address] RBC COUNT 3.07 X10E12/L Low 4.10-5.70 [facility] Comment on above: Performed By: #### C BCA, CMP, 31403-2 #### [facility] ([id number]) [address], [address] [place] [address] WBC (Bld) [#/Vol] 3.6 10*3/uL Low 4.0-11.0 [facility] Comment on above: Performed By: #### C BCA, CMP, 96058-8 #### [facility] ([id number]) [address], [address] [place] [address] COMPREHENSIVE METABOLIC PANE [place] 04-18-2024 Albumin [Mass/Vol] 3.6 g/dL Normal 3.2-5.3 [facility] Comment on above: Performed By: #### C BCA, CMP, 45399-4 #### [facility] ([id number]) [address], [address] [place] [address] ALP [Catalytic activity/Vol] 85 U/L Normal 39-130 [facility] Comment on above: Performed By: #### C BCA, CMP, 32893-5 #### [facility] ([id number]) [address], [address] [place] [address] ALT [Catalytic activity/Vol] 41 U/L High 0-40 [facility] Comment on above: Performed By: #### C BCA, CMP, 70672-3 #### [facility] ([id number]) [address], [address] [place] [address] Anion gap [Moles/Vol] 11 mmol/L Normal 5-15 [facility] Comment on above: Performed By: #### C BCA, CMP, 44605-9 #### [facility] ([id number]) [address], [address] [place] [address] AST [Catalytic activity/Vol] 26 U/L Normal 0-41 [facility] Comment on above: Performed By: #### C BCA, CMP, 91572-9 #### [facility] ([id number]) [address], [address] [place] [address] Bilirubin [Mass/Vol] 0.7 mg/dL Normal 0.3-1.2 [facility] Comment on above: Performed By: #### C BCA, CMP, 58502-0 #### [facility] ([id number]) [address] [place] [address] Calcium [Mass/Vol] 8.6 mg/dL Normal 8.5-10.5 [facility] Comment on above: Performed By: #### C BCA, CMP, 71193-4 #### [facility] ([id number]) [address] [place] [address] Chloride [Moles/Vol] 100 mmol/L Normal 98-109 [facility] Comment on above: Performed By: #### C BCA, CMP, 72434-5 #### [facility] ([id number]) [address], [address] [place] [address] CO2 [Moles/Vol] 25 mmol/L Normal 22-32 [facility] Comment on above: Performed By: #### C BCA, CMP, 89765-8 #### [facility] ([id number]) [address], [address] [place] [address] Creatinine [Mass/Vol] 0.59 mg/dL Low 0.60-1.30 [facility] Comment on above: Result Comment: METH OD TRACEABLE TO IDMS STANDARD Performed By: #### C ZACHARY, CMP, 71387-8 #### [facility] ([id number]) [address], [address] [place] [address] eGFR (CKD-EPI) NON-RACE DEPENDENT >90 Normal >59 [facility] Comment on above: Result Comment: Reported eGFR is based on the CKD-EPI 2020 equation that does not use a race coefficient. Performed By: #### C BCA, CMP, 98544-2 #### [facility] ([id number]) [address], [address] [place] [address] Glucose [Mass/Vol] 104 mg/dL High 65-99 [facility] Comment on above: Performed By: #### C BCA, CMP, 99024-5 #### [facility] ([id number]) [address] [place] [address] Potassium [Moles/Vol] 3.7 mmol/L Normal 3.5-5.0 [facility] Comment on above: Performed By: #### C BCA, CMP, 26294-7 #### [facility] ([id number]) [address], [address] [place] [address] Protein [Mass/Vol] 5.7 g/dL Low 6.0-8.0 [facility] Comment on above: Performed By: #### C BCA, CMP, 39691-1 #### [facility] ([id number]) [address] [place] [address] Sodium [Moles/Vol] 136 mmol/L Normal 134-146 [facility] Comment on above: Performed By: #### Thais SHARMA CMP, 27362-2 #### [facility] ([id number]) [address] [place] [address] Urea nitrogen [Mass/Vol] 12 mg/dL Normal 5-27 [facility] Comment on above: Performed By: #### Thais SHARMA CMP, 62144-1 #### [facility] ([id number]) [address] [place] [address] Glucose Glucometer (BldC) [M ass/Vol]on 04-18-2024 Glucose [Mass/Vol] 135 mg/dL High 65-99 [facility] Glucose [Mass/Vol] 168 mg/dL High 65-99 [facility] Glucose [Mass/Vol] 169 mg/dL High 65-99 [facility] HGB AND HCTon 04-18-2024 Hematocrit (Bld) [Volume fraction] 27.9 % Low 39-49 [facility] Comment on above: Performed By: #### Thais SHARMA CMP, 92117-2 #### [facility] ([id number]) [address] [place] [address] Hemoglobin (Bld) [Mass/Vol] 9.6 g/dL Low 13.0-17.0 [facility] Comment on above: Performed By: #### Thais SHARMA CMP, 51400-5 #### [facility] ([id number]) [address] [place] [address] POTASSIUMon 04-18-2024 Potassium [Moles/Vol] 4.4 mmol/L Normal 3.5-5.0 [facility] Comment on above: Performed By: #### Thais SHARMA CMP, 45029-4 #### [facility] ([id number]) [address], [address] [place] [address] CBC AND AUTO DIFFon 04-17-20 ABSOLUTE BASOPHIL 0.0 X10E9/L Normal 0.0-0.2 [facility] Comment on above: Performed By: #### C BCA, CMP, 75685-5 #### [facility] ([id number]) [address], [address] [place] [address] ABSOLUTE NEUTROPHIL 2.5 X10E9/L Normal 1.5-6.6 [facility] Comment on above: Performed By: #### C BCA, CMP, 53833-6 #### [facility] ([id number]) [address] [place] [address] Basophils/100 WBC (Bld) 1.0 % Normal [facility] Comment on above: Performed By: #### C BCA, CMP, 74967-4 #### [facility] ([id number]) [address] [place] [address] Eosinophils (Bld) [#/Vol] 0.2 10*3/uL Normal 0.0-0.4 [facility] Comment on above: Performed By: #### C BCA, CMP, 06541-1 #### [facility] ([id number]) [address], [address] [place] [address] Eosinophils/100 WBC (Bld) 4.1 % Normal [facility] Comment on above: Performed By: #### C BCA, CMP, 69980-2 #### [facility] ([id number]) [address], [address] [place] [address] Erythrocyte distribution width (RBC) [Ratio] 16.0 % High 11.5-15.0 [facility] Comment on above: Performed By: #### C BCA, CMP, 66746-8 #### [facility] ([id number]) [address] [place] [address] Hematocrit (Bld) [Volume fraction] 27.8 % Low 39-49 [facility] Comment on above: Performed By: #### Thais SHARMA CMP, 46521-7 #### [facility] ([id number]) [address], [facility] [address] [place] [address] Hemoglobin (Bld) [Mass/Vol] 9.7 g/dL Low 13.0-17.0 [facility] Comment on above: Performed By: #### Thais SHARMA CMP, 98697-0 #### [facility] ([id number]) [address] [address] [place] [address] Lymphocytes (Bld) [#/Vol] 1.0 10*3/uL Normal 1.0-3.5 [facility] Comment on above: Performed By: #### Thais SHARMA CMP, 88428-7 #### [facility] ([id number]) [address], [address] [address] Lymphocytes/100 WBC (Bld) 24.3 % Normal [facility] Comment on above: Performed By: #### Thais SHARMA, CMP, 43251-8 #### [facility] ([id number]) [address], [facility] [address] [place] [address] MCH (RBC) [Entitic mass] 31.1 pg Normal 27-34 [facility] Comment on above: Performed By: #### Thais SHARMA CMP, 79096-2 #### [facility] ([id number]) [address], [facility] [address] [place] [address] MCHC (RBC) [Mass/Vol] 35.0 g/dL Normal 32-36 [facility] Comment on above: Performed By: #### Thais SHARMA, CMP, 60874-4 #### [facility] ([id number]) [address] [address] [place] [address] MCV (RBC) [Entitic vol] 89 fL Normal 80-100 [facility] Comment on above: Performed By: #### C BCA, CMP, 40534-8 #### [facility] ([id number]) [address], [address] [place] [address] Monocytes (Bld) [#/Vol] 0.3 10*3/uL Normal 0-0.9 [facility] Comment on above: Performed By: #### C BCA, CMP, 13848-8 #### [facility] ([id number]) [address], [address] [place] [address] Monocytes/100 WBC (Bld) 8.3 % Normal [facility] Comment on above: Performed By: #### C BCA, CMP, 95438-2 #### [facility] ([id number]) [address] [place] [address] Neutrophils/100 WBC (Bld) 62.3 % Normal [facility] Comment on above: Performed By: #### Thais BCA, CMP, 14072-9 #### [facility] ([id number]) [address], [address] [place] [address] Platelet mean volume (Bld) [Entitic vol] 6.9 fL Low 7-12 [facility] Comment on above: Performed By: #### C BCA, CMP, 66298-7 #### [facility] ([id number]) [address] [place] [address] Platelets (Bld) [#/Vol] 267 10*3/uL Normal 150-450 [facility] Comment on above: Performed By: #### C BCA, CMP, 15315-5 #### [facility] ([id number]) [address], [address] [place] [address] RBC COUNT 3.13 X10E12/L Low 4.10-5.70 [facility] Comment on above: Performed By: #### C BCA, CMP, 25496-7 #### [facility] ([id number]) [address], [address] [place] [address] WBC (Bld) [#/Vol] 4.0 10*3/uL Normal 4.0-11.0 [facility] Comment on above: Performed By: #### C BCA, CMP, 16140-0 #### [facility] ([id number]) [address], [address] [place] [address] COMPREHENSIVE METABOLIC PANE [place] 04-17-2024 Albumin [Mass/Vol] 3.7 g/dL Normal 3.2-5.3 [facility] Comment on above: Performed By: #### C BCA, CMP, 89476-2 #### [facility] ([id number]) [address], [address] [place] [address] ALP [Catalytic activity/Vol] 83 U/L Normal 39-130 [facility] Comment on above: Performed By: #### C BCA, CMP, 96064-6 #### [facility] ([id number]) [address], [address] [place] [address] ALT [Catalytic activity/Vol] 29 U/L Normal 0-40 [facility] Comment on above: Performed By: #### C BCA, CMP, 62387-9 #### [facility] ([id number]) [address], [address] [place] [address] Anion gap [Moles/Vol] 8 mmol/L Normal 5-15 [facility] Comment on above: Performed By: #### C BCA, CMP, 53206-4 #### [facility] ([id number]) [address], [address] [place] [address] AST [Catalytic activity/Vol] 23 U/L Normal 0-41 [facility] Comment on above: Performed By: #### C BCA, CMP, 09774-0 #### [facility] ([id number]) [address], [address] [place] [address] Bilirubin [Mass/Vol] 0.8 mg/dL Normal 0.3-1.2 [facility] Comment on above: Performed By: #### C BCA, CMP, 73253-3 #### [facility] ([id number]) [address], [address] [place] [address] Calcium [Mass/Vol] 8.5 mg/dL Normal 8.5-10.5 [facility] Comment on above: Performed By: #### C BCA, CMP, 84554-5 #### [facility] ([id number]) [address], [address] [place] [address] Chloride [Moles/Vol] 102 mmol/L Normal 98-109 [facility] Comment on above: Performed By: #### C BCA, CMP, 53999-1 #### [facility] ([id number]) [address], [address] [place] [address] CO2 [Moles/Vol] 27 mmol/L Normal 22-32 [facility] Comment on above: Performed By: #### C BCA, CMP, 32522-1 #### [facility] ([id number]) [address] [address] [place] [address] Creatinine [Mass/Vol] 0.61 mg/dL Normal 0.60-1.30 [facility] Comment on above: Result Comment: METH OD TRACEABLE TO IDMS STANDARD Performed By: #### C BCA, CMP, 87647-3 #### [facility] ([id number]) [address] [address] [place] [address] eGFR (CKD-EPI) NON-RACE DEPENDENT >90 Normal >59 [facility] Comment on above: Result Comment: Reported eGFR is based on the CKD-EPI 2020 equation that does not use a race coefficient. Performed By: #### C BCA, CMP, 87769-1 #### [facility] ([id number]) [address] [place] [address] Glucose [Mass/Vol] 123 mg/dL High 65-99 [facility] Comment on above: Performed By: #### C BCA, CMP, 12477-0 #### [facility] ([id number]) [address], [address] [place] [address] Potassium [Moles/Vol] 4.1 mmol/L Normal 3.5-5.0 [facility] Comment on above: Performed By: #### C BCA, CMP, 19942-3 #### [facility] ([id number]) [address] [place] [address] Protein [Mass/Vol] 5.7 g/dL Low 6.0-8.0 [facility] Comment on above: Performed By: #### C BCA, CMP, 57105-6 #### [facility] ([id number]) [address] [place] [address] Sodium [Moles/Vol] 137 mmol/L Normal 134-146 [facility] Comment on above: Performed By: #### C BCA, CMP, 84355-5 #### [facility] ([id number]) [address], [address] [place] [address] Urea nitrogen [Mass/Vol] 16 mg/dL Normal 5-27 [facility] Comment on above: Performed By: #### C BCA, CMP, 46773-3 #### [facility] ([id number]) [address], [address] [place] [address] Glucose Glucometer (BldC) [M ass/Vol]on 04-17-2024 Glucose [Mass/Vol] 97 mg/dL Normal 65-99 [facility] HGB AND HCTon 04-17-2024 Hematocrit (Bld) [Volume fraction] 28.5 % Low 39-49 [facility] Comment on above: Performed By: #### C ZACHARY, CMP, 34748-5 #### [facility] ([id number]) [address] [place] [address] Hemoglobin (Bld) [Mass/Vol] 9.8 g/dL Low 13.0-17.0 [facility] Comment on above: Performed By: #### C ZACHARY, CMP, 63600-3 #### [facility] ([id number]) [address] [place] [address] Hematocrit (Bld) [Volume fraction] 29.3 % Low 39-49 [facility] Comment on above: Performed By: #### C ZACHARY, CMP, 73550-2 #### [facility] ([id number]) [address], [address] [place] [address] Hemoglobin (Bld) [Mass/Vol] 10.0 g/dL Low 13.0-17.0 [facility] Comment on above: Performed By: #### C ZACHARY, CMP, 98128-7 #### [facility] ([id number]) [address] [place] [address] CBC AND AUTO DIFFon 04-16- 24 Eosinophils (Bld) [#/Vol] 0.1 10*3/uL Normal 0.0-0.4 [facility] Comment on above: Performed By: #### C BCA, CMP ####[facility] ([id number])[address], [place] [address] Eosinophils/100 WBC (Bld) 3.1 % Normal [facility] Comment on above: Performed By: #### C BCA, CMP ####[facility] ([id number])[address] [place] [address] Erythrocyte distribution width (RBC) [Ratio] 16.6 % High 11.5-15.0 [facility] Comment on above: Performed By: #### C BCA, CMP ####[facility] ([id number])[address] [place] [address] Hematocrit (Bld) [Volume fraction] 28.1 % Low 39-49 [facility] Comment on above: Performed By: #### C BCA, CMP ####[facility] ([id number])[address] [place] [address] Hemoglobin (Bld) [Mass/Vol] 9.8 g/dL Low 13.0-17.0 [facility] Comment on above: Performed By: #### C AZCHARY, CMP ####[facility] ([id number])[address] [address], [place] [address] Lymphocytes (Bld) [#/Vol] 1.2 10*3/uL Normal 1.0-3.5 [facility] Comment on above: Performed By: #### C ZACHARY, CMP ####[facility] ([id number])[address] [address], [place] [address] Lymphocytes/100 WBC (Bld) 27.6 % Normal [facility] Comment on above: Performed By: #### C BCA, CMP ####[facility] ([id number])[address] [address], [place] [address] MCH (RBC) [Entitic mass] 31.6 pg Normal 27-34 [facility] Comment on above: Performed By: #### C BCA, CMP ####[facility] ([id number])[address] [address] [place] [address] MCHC (RBC) [Mass/Vol] 34.9 g/dL Normal 32-36 [facility] Comment on above: Performed By: #### C BCA, CMP ####[facility] ([id number])[address] [place] [address] MCV (RBC) [Entitic vol] 91 fL Normal 80-100 [facility] Comment on above: Performed By: #### C BCA, CMP ####[facility] ([id number])[address], [place] [address] Monocytes (Bld) [#/Vol] 0.2 10*3/uL Normal 0-0.9 [facility] Comment on above: Performed By: #### C BCA, CMP ####[facility] ([id number])[address], [place] [address] Monocytes/100 WBC (Bld) 5.1 % Normal [facility] Comment on above: Performed By: #### C ZACHARY, CMP ####[facility] ([id number])[address] [address], [place] [address] Neutrophils (Bld) [#/Vol] 2.7 10*3/uL Normal 1.5-6.6 [facility] Comment on above: Performed By: #### C ZACHARY, CMP ####[facility] ([id number])[address] [address], [place] [address] OVALOCYTE 1+ Abnormal NONE [facility] Comment on above: Performed By: #### C ZACHARY, CMP ####[facility] ([id number])[address] [address], [place] [address] Platelet mean volume (Bld) [Entitic vol] 7.1 fL Normal 7-12 [facility] Comment on above: Performed By: #### C BCA, CMP ####[facility] ([id number])[address] [address] [place] [address], [place] [address] Platelets (Bld) [#/Vol] 257 10*3/uL Normal 150-450 [facility] Comment on above: Performed By: #### C BCA, CMP ####[facility] ([id number])[address], [place] [address] POLYCHROMASIA 1+ Abnormal NONE [facility] Comment on above: Performed By: #### C BCA, CMP ####[facility] ([id number])[address], [place] [address] RBC COUNT 3.10 X10E12/L Low 4.10-5.70 [facility] Comment on above: Performed By: #### C BCA, CMP ####[facility] ([id number])[address] [address] [place] [address] SEG NEUTROPHIL 64.2 % Normal [facility] Comment on above: Performed By: #### C BCA, CMP ####[facility] ([id number])[address] [address] WBC (Bld) [#/Vol] 4.2 10*3/uL Normal 4.0-11.0 [facility] Comment on above: Performed By: #### C BCA, CMP ####[facility] ([id number])[address] [address] COMPREHENSIVE METABOLIC PANE [place] 04-16-2024 Albumin [Mass/Vol] 3.8 g/dL Normal 3.2-5.3 [facility] Comment on above: Performed By: #### C BCA, CMP ####[facility] ([id number])[address] [address] [place] [address] ALP [Catalytic activity/Vol] 71 U/L Normal 39-130 [facility] Comment on above: Performed By: #### C BCA, CMP ####[facility] ([id number])[address] [address] [place] [address] ALT [Catalytic activity/Vol] 19 U/L Normal 0-40 [facility] Comment on above: Performed By: #### C BCA, CMP ####[facility] ([id number])[address], [place] [address] Anion gap [Moles/Vol] 12 mmol/L Normal 5-15 [facility] Comment on above: Performed By: #### C BCA, CMP ####[facility] ([id number])[address], [place] [address] AST [Catalytic activity/Vol] 16 U/L Normal 0-41 [facility] Comment on above: Performed By: #### C BCA, CMP ####[facility] ([id number])[address] [address], [place] [address] Bilirubin [Mass/Vol] 0.7 mg/dL Normal 0.3-1.2 [facility] Comment on above: Performed By: #### C BCA, CMP ####[facility] ([id number])[address] [address], [place] [address] Calcium [Mass/Vol] 8.4 mg/dL Low 8.5-10.5 [facility] Comment on above: Performed By: #### C BCA, CMP ####[facility] ([id number])[address] [address], [place] [address] Chloride [Moles/Vol] 102 mmol/L Normal 98-109 [facility] Comment on above: Performed By: #### C BCA, CMP ####[facility] ([id number])[address] [address], [place] [address] CO2 [Moles/Vol] 24 mmol/L Normal 22-32 [facility] Comment on above: Performed By: #### C BCA, CMP ####[facility] ([id number])[address], [place] [address] Creatinine [Mass/Vol] 0.60 mg/dL Normal 0.60-1.30 [facility] Comment on above: Result Comment: METH OD TRACEABLE TO IDMS STANDARD Performed By: #### C BCA, CMP ####[facility] ([id number])[address] [address], [place] [address] eGFR (CKD-EPI) NON-RACE DEPENDENT >90 Normal >59 [facility] Comment on above: Result Comment: Reported eGFR is based on the CKD-EPI 2020 equation that does not use a race coefficient. Performed By: #### C BCA, CMP ####[facility] ([id number])[address] [address], [place] [address] Glucose [Mass/Vol] 147 mg/dL High 65-99 [facility] Comment on above: Performed By: #### C BCA, CMP ####[facility] ([id number])[address] [address], [place] [address] Potassium [Moles/Vol] 3.8 mmol/L Normal 3.5-5.0 [facility] Comment on above: Performed By: #### C BCA, CMP ####[facility] ([id number])[address] [address], [place] [address] Protein [Mass/Vol] 5.6 g/dL Low 6.0-8.0 [facility] Comment on above: Performed By: #### C BCA, CMP ####[facility] ([id number])[address] [address], [place] [address] Sodium [Moles/Vol] 138 mmol/L Normal 134-146 [facility] Comment on above: Performed By: #### C BCA, CMP ####[facility] ([id number])[address] [address], [place] [address] Urea nitrogen [Mass/Vol] 13 mg/dL Normal 5-27 [facility] Comment on above: Performed By: #### C BCA, CMP ####[facility] ([id number])[address] [address], [place] [address] Glucose Glucometer (BldC) [M ass/Vol]on 04-16-2024 Glucose [Mass/Vol] 137 mg/dL High 65-99 [facility] Glucose [Mass/Vol] 145 mg/dL High 65-99 [facility] Glucose [Mass/Vol] 144 mg/dL High 65-99 [facility] Glucose [Mass/Vol] 151 mg/dL High 65-99 [facility] Glucose [Mass/Vol] 148 mg/dL High 65-99 [facility] HGB AND HCTon 04-16-2024 Hematocrit (Bld) [Volume fraction] 26.4 % Low 39-49 [facility] Comment on above: Performed By: #### C ZACHARY [facility], 89444-6 #### [facility] ([id number]) [address], [address] [place] [address] Hemoglobin (Bld) [Mass/Vol] 9.4 g/dL Low 13.0-17.0 [facility] Comment on above: Performed By: #### C ZACHARY [facility], 71815-5 #### [facility] ([id number]) [address], [address] [place] [address] Hematocrit (Bld) [Volume fraction] 30.2 % Low 39-49 [facility] Comment on above: Performed By: #### H H ####[facility] ([id number])[address], [address] [place] [address] Hemoglobin (Bld) [Mass/Vol] 10.5 g/dL Low 13.0-17.0 [facility] Comment on above: Performed By: #### H H ####[facility] ([id number])[address], [address] [place] [address] Hematocrit (Bld) [Volume fraction] 27.8 % Low 39-49 [facility] Comment on above: Performed By: #### H H ####[facility] ([id number])[address] [address] [place] [address] Hemoglobin (Bld) [Mass/Vol] 9.6 g/dL Low 13.0-17.0 [facility] Comment on above: Performed By: #### H H ####[facility] ([id number])[address] [address] [address] CBC AND AUTO DIFFon 04-15-20 Eosinophils (Bld) [#/Vol] 0.3 10*3/uL Normal 0.0-0.4 [facility] Comment on above: Performed By: #### C ZACHARY, CMP ####[facility] ([id number])[address] [address], [place] [address] Eosinophils/100 WBC (Bld) 5.0 % Normal [facility] Comment on above: Performed By: #### C ZACHARY, CMP ####[facility] ([id number])[address] [address], [place] [address] Erythrocyte distribution width (RBC) [Ratio] 16.0 % High 11.5-15.0 [facility] Comment on above: Performed By: #### C ZACHARY, CMP ####[facility] ([id number])[address] [address] [address] Hematocrit (Bld) [Volume fraction] 25.9 % Low 39-49 [facility] Comment on above: Performed By: #### C BCA, CMP ####[facility] ([id number])0 [address] [address] [place] [address] Hemoglobin (Bld) [Mass/Vol] 9.0 g/dL Low 13.0-17.0 [facility] Comment on above: Performed By: #### C BCA, CMP ####[facility] ([id number])[address] [place] [address] Lymphocytes (Bld) [#/Vol] 1.6 10*3/uL Normal 1.0-3.5 [facility] Comment on above: Performed By: #### C BCA, CMP ####[facility] ([id number])[address] [place] [address] Lymphocytes/100 WBC (Bld) 32.0 % Normal [facility] [facility] Comment on above: Performed By: #### C BCA, CMP ####[facility] ([id number])[address] [address] MCH (RBC) [Entitic mass] 31.2 pg Normal 27-34 [facility] Comment on above: Performed By: #### C BCA, CMP ####[facility] ([id number])[address] [address], [place] [address] MCHC (RBC) [Mass/Vol] 34.7 g/dL Normal 32-36 [facility] Comment on above: Performed By: #### C BCA, CMP ####[facility] ([id number])[address] [address] [address] MCV (RBC) [Entitic vol] 90 fL Normal 80-100 [facility] Comment on above: Performed By: #### C BCA, CMP ####[facility] ([id number])[address] [address] [address] Monocytes (Bld) [#/Vol] 0.4 10*3/uL Normal 0-0.9 [facility] Comment on above: Performed By: #### C BCA, CMP ####[facility] ([id number])[address] [address] [address] Monocytes/100 WBC (Bld) 9.0 % Normal [facility] Comment on above: Performed By: #### C BCA, CMP ####[facility] ([id number])[address], [address], [place] [address] Neutrophils (Bld) [#/Vol] 2.7 10*3/uL Normal 1.5-6.6 [facility] Comment on above: Performed By: #### C ZACHARY, CMP ####[facility] ([id number])[address] [address] Platelet mean volume (Bld) [Entitic vol] 7.0 fL Normal 7-12 [facility] Comment on above: Performed By: #### C ZACHARY, CMP ####[facility] ([id number])[address] [address], [place] [address] Platelets (Bld) [#/Vol] 225 10*3/uL Normal 150-450 [facility] Comment on above: Performed By: #### C ZACHARY, CMP ####[facility] ([id number])[address] [address], [place] [address] POLYCHROMASIA 1+ Abnormal NONE [facility] Comment on above: Performed By: #### C ZACHARY, CMP ####[facility] ([id number])[address] [address] RBC COUNT 2.88 X10E12/L Low 4.10-5.70 [facility] Comment on above: Performed By: #### C ZACHARY, CMP ####[facility] ([id number])[address] [address], [place] [address] SEG NEUTROPHIL 54.0 % Normal [facility] Comment on above: Performed By: #### C ZACHARY, CMP ####[facility] ([id number])[address] [address] [address] WBC (Bld) [#/Vol] 5.0 10*3/uL Normal 4.0-11.0 [facility] Comment on above: Performed By: #### C BCA, CMP ####[facility] ([id number])[address], [address], [place] [address] COMPREHENSIVE METABOLIC PANE [place] 04-15-2024 Albumin [Mass/Vol] 3.5 g/dL Normal 3.2-5.3 [facility] Comment on above: Performed By: #### C BCA, CMP ####[facility] ([id number])[address], [address], [place] [address] ALP [Catalytic activity/Vol] 64 U/L Normal 39-130 [facility] Comment on above: Performed By: #### C BCA, CMP ####[facility] ([id number])[address], [address], [place] [address] ALT [Catalytic activity/Vol] 18 U/L Normal 0-40 [facility] Comment on above: Performed By: #### C BCA, CMP ####[facility] ([id number])[address], [address], [place] [address] Anion gap [Moles/Vol] 8 mmol/L Normal 5-15 [facility] Comment on above: Performed By: #### C BCA, CMP ####[facility] ([id number])[address], [address], [place] [address] AST [Catalytic activity/Vol] 18 U/L Normal 0-41 [facility] Comment on above: Performed By: #### C BCA, CMP ####[facility] ([id number])[address], [address], [place] [address] Bilirubin [Mass/Vol] 0.7 mg/dL Normal 0.3-1.2 [facility] Comment on above: Performed By: #### C BCA, CMP ####[facility] ([id number])[address], [address], [place] [address] Calcium [Mass/Vol] 8.3 mg/dL Low 8.5-10.5 [facility] Comment on above: Performed By: #### C BCA, CMP ####[facility] ([id number])[address], [address] [address] Chloride [Moles/Vol] 100 mmol/L Normal 98-109 [facility] Comment on above: Performed By: #### C BCA, CMP ####[facility] ([id number])[address] [address] CO2 [Moles/Vol] 28 mmol/L Normal 22-32 [facility] Comment on above: Performed By: #### C BCA, CMP ####[facility] ([id number])[address] [address], [place] [address] Creatinine [Mass/Vol] 0.56 mg/dL Low 0.60-1.30 [facility] Comment on above: Result Comment: METH OD TRACEABLE TO IDMS STANDARD Performed By: #### C BCA, CMP ####[facility] ([id number])[address] [address], [place] [address] eGFR (CKD-EPI) NON-RACE DEPENDENT >90 Normal >59 [facility] Comment on above: Result Comment: Reported eGFR is based on the CKD-EPI 2020 equation that does not use a race coefficient. Performed By: #### C BCA, CMP ####[facility] ([id number])[address] [address], [place] [address] Glucose [Mass/Vol] 152 mg/dL High 65-99 [facility] Comment on above: Performed By: #### C BCA, CMP ####[facility] ([id number])[address] [address] [address] Potassium [Moles/Vol] 4.2 mmol/L Normal 3.5-5.0 [facility] Comment on above: Performed By: #### C BCA, CMP ####[facility] ([id number])[address] [place] [address] Protein [Mass/Vol] 5.4 g/dL Low 6.0-8.0 [facility] Comment on above: Performed By: #### C BCA, CMP ####[facility] ([id number])[address], [address] [place] [address] Sodium [Moles/Vol] 136 mmol/L Normal 134-146 [facility] Comment on above: Performed By: #### C BCA, CMP ####[facility] ([id number])[address] [place] [address] Urea nitrogen [Mass/Vol] 14 mg/dL Normal 5-27 [facility] Comment on above: Performed By: #### C BCA, CMP ####[facility] ([id number])[address] [place] [address] Glucose Glucometer (BldC) [M ass/Vol]on 04-15-2024 Glucose [Mass/Vol] 159 mg/dL High 65-99 [facility] Glucose [Mass/Vol] 146 mg/dL High 65-99 [facility] Glucose [Mass/Vol] 145 mg/dL High 65-99 [facility] Glucose [Mass/Vol] 153 mg/dL High 65-99 [facility] Glucose [Mass/Vol] 164 mg/dL High 65-99 [facility] HGB AND HCTon 04-15-2024 Hematocrit (Bld) [Volume fraction] 27.1 % Low 39-49 [facility] Comment on above: Performed By: #### H H ####[facility] ([id number])[address], [address] [place] [address] Hemoglobin (Bld) [Mass/Vol] 9.3 g/dL Low 13.0-17.0 [facility] Comment on above: Performed By: #### H H ####[facility] ([id number])[address], [address] [address] Hematocrit (Bld) [Volume fraction] 26.9 % Low 39-49 [facility] Comment on above: Performed By: #### H H ####[facility] ([id number])[address] [address] Hemoglobin (Bld) [Mass/Vol] 9.5 g/dL Low 13.0-17.0 [facility] Comment on above: Performed By: #### H H ####[facility] ([id number])[address] [address] Hematocrit (Bld) [Volume fraction] 27.2 % Low 39-49 [facility] Comment on above: Performed By: #### H H ####[facility] ([id number])[address], [address] [address] Hemoglobin (Bld) [Mass/Vol] 9.4 g/dL Low 13.0-17.0 [facility] Comment on above: Performed By: #### H H ####[facility] ([id number])[address], [address], [place] [address] CBC AND AUTO DIFFon 04-14-20 24 Band form neutrophils/100 WBC (Bld) 1.0 % Normal [facility] Comment on above: Performed By: #### U A #### [facility] ([id number]) [address], [address] [place] [address] Eosinophils (Bld) [#/Vol] 0.5 10*3/uL High 0.0-0.4 [facility] Comment on above: Performed By: #### U A #### [facility] ([id number]) [address], [address] [place] [address] Eosinophils/100 WBC (Bld) 7.0 % Normal [facility] Comment on above: Performed By: #### U A #### [facility] ([id number]) [address], [address] [place] [address] Erythrocyte distribution width (RBC) [Ratio] 15.8 % High 11.5-15.0 [facility] Comment on above: Performed By: #### U A #### [facility] ([id number]) [address], [address] [place] [address] Hematocrit (Bld) [Volume fraction] 25.8 % Low 39-49 [facility] Comment on above: Performed By: #### U A #### [facility] ([id number]) [address], [address] [place] [address] Hemoglobin (Bld) [Mass/Vol] 9.0 g/dL Low 13.0-17.0 [facility] Comment on above: Performed By: #### U A #### [facility] ([id number]) [address], [address] [place] [address] IMMATURE MONONUCLEAR 1.0 % Normal [facility] Comment on above: Performed By: #### U A #### [facility] ([id number]) [address], [address] [place] [address] Lymphocytes (Bld) [#/Vol] 1.7 10*3/uL Normal 1.0-3.5 [facility] Comment on above: Performed By: #### U A #### [facility] ([id number]) [address], [address] [place] [address] Lymphocytes/100 WBC (Bld) 23.0 % Normal [facility] Comment on above: Performed By: #### U A #### [facility] ([id number]) [address], [address] [place] [address] MCH (RBC) [Entitic mass] 31.0 pg Normal 27-34 [facility] Comment on above: Performed By: #### U A #### [facility] ([id number]) [address], [address] [place] [address] MCHC (RBC) [Mass/Vol] 34.9 g/dL Normal 32-36 [facility] Comment on above: Performed By: #### U A #### [facility] ([id number]) [address], [address] [place] [address] MCV (RBC) [Entitic vol] 89 fL Normal 80-100 [facility] Comment on above: Performed By: #### U A #### [facility] ([id number]) [address], [address] [place] [address] Metamyelocytes/100 WBC (Bld) 1.0 % Normal [facility] Comment on above: Performed By: #### U A #### [facility] ([id number]) [address], [address] [place] [address] Monocytes (Bld) [#/Vol] 0.5 10*3/uL Normal 0-0.9 [facility] Comment on above: Performed By: #### U A #### [facility] ([id number]) [address], [address] [place] [address] Monocytes/100 WBC (Bld) 7.0 % Normal [facility] Comment on above: Performed By: #### U A #### [facility] ([id number]) [address], [address] [place] [address] MYELOCYTE 1.0 % Normal [facility] Comment on above: Performed By: #### U A #### [facility] ([id number]) [address], [address] [place] [address] Neutrophils (Bld) [#/Vol] 4.4 10*3/uL Normal 1.5-6.6 [facility] Comment on above: Performed By: #### U A #### [facility] ([id number]) [address], [address] [place] [address] NUCLEATED RBC 1.0 /100 WBC Normal 0.0-1.0 [facility] Comment on above: Performed By: #### U A #### [facility] ([id number]) [address] [place] [address] Platelet mean volume (Bld) [Entitic vol] 7.2 fL Normal 7-12 [facility] Comment on above: Performed By: #### U A #### [facility] ([id number]) [address], [address] [place] [address] Platelets (Bld) [#/Vol] 241 10*3/uL Normal 150-450 [facility] Comment on above: Performed By: #### U A #### [facility] ([id number]) [address], [address] [place] [address] POLYCHROMASIA 1+ Abnormal NONE [facility] Comment on above: Performed By: #### U A #### [facility] ([id number]) [address], [address] [place] [address] RBC COUNT 2.90 X10E12/L Low 4.10-5.70 [facility] Comment on above: Performed By: #### U A #### [facility] ([id number]) [address], [address] [place] [address] SEG NEUTROPHIL 59.0 % Normal [facility] Comment on above: Performed By: #### U A #### [facility] ([id number]) [address], [address] [place] [address] WBC (Bld) [#/Vol] 7.4 10*3/uL Normal 4.0-11.0 [facility] Comment on above: Performed By: #### U A #### [facility] ([id number]) [address] [place] [address] COMPREHENSIVE METABOLIC PANE [place] 04-14-2024 Albumin [Mass/Vol] 3.6 g/dL Normal 3.2-5.3 [facility] Comment on above: Performed By: #### U A #### [facility] ([id number]) [address] [place] [address] ALP [Catalytic activity/Vol] 55 U/L Normal 39-130 [facility] Comment on above: Performed By: #### U A #### [facility] ([id number]) [address], [address] [place] [address] ALT [Catalytic activity/Vol] 10 U/L Normal 0-40 [facility] Comment on above: Performed By: #### U A #### [facility] ([id number]) [address], [address] [place] [address] Anion gap [Moles/Vol] 10 mmol/L Normal 5-15 [facility] Comment on above: Performed By: #### U A #### [facility] ([id number]) [address], [address] [place] [address] AST [Catalytic activity/Vol] 12 U/L Normal 0-41 [facility] Comment on above: Performed By: #### U A #### [facility] ([id number]) [address], [address] [place] [address] Bilirubin [Mass/Vol] 0.7 mg/dL Normal 0.3-1.2 [facility] Comment on above: Performed By: #### U A #### [facility] ([id number]) [address], [address] [place] [address] Calcium [Mass/Vol] 8.4 mg/dL Low 8.5-10.5 [facility] Comment on above: Performed By: #### U A #### [facility] ([id number]) [address], [address] [place] [address] Chloride [Moles/Vol] 100 mmol/L Normal 98-109 [facility] Comment on above: Performed By: #### U A #### [facility] ([id number]) [address], [address] [place] [address] CO2 [Moles/Vol] 26 mmol/L Normal 22-32 [facility] Comment on above: Performed By: #### U A #### [facility] ([id number]) [address], [address] [place] [address] Creatinine [Mass/Vol] 0.61 mg/dL Normal 0.60-1.30 [facility] Comment on above: Result Comment: METH OD TRACEABLE TO IDMS STANDARD Performed By: #### U A #### [facility] ([id number]) [address], [address] [place] [address] eGFR (CKD-EPI) NON-RACE DEPENDENT >90 Normal >59 [facility] Comment on above: Result Comment: Reported eGFR is based on the CKD-EPI 1 equation that does not use a race coefficient. Performed By: #### U A #### [facility] ([id number]) [address], [address] [place] [address] Glucose [Mass/Vol] 189 mg/dL High 65-99 [facility] Comment on above: Performed By: #### U A #### [facility] ([id number]) [address], [address] [place] [address] Potassium [Moles/Vol] 4.0 mmol/L Normal 3.5-5.0 [facility] Comment on above: Performed By: #### U A #### [facility] ([id number]) [address], [address] [place] [address] Protein [Mass/Vol] 5.6 g/dL Low 6.0-8.0 [facility] Comment on above: Performed By: #### U A #### [facility] ([id number]) [address], [address] [place] [address] Sodium [Moles/Vol] 136 mmol/L Normal 134-146 [facility] Comment on above: Performed By: #### U A #### [facility] ([id number]) [address] [place] [address] Urea nitrogen [Mass/Vol] 23 mg/dL Normal 5-27 [facility] Comment on above: Performed By: #### U A #### [facility] ([id number]) [address], [address] [place] [address] Glucose Glucometer (BldC) [M ass/Vol]on 04-14-2024 Glucose [Mass/Vol] 148 mg/dL High 65-99 [facility] Glucose [Mass/Vol] 158 mg/dL High 65-99 [facility] Glucose [Mass/Vol] 180 mg/dL High 65-99 [facility] Glucose [Mass/Vol] 185 mg/dL High 65-99 [facility] HGB AND HCTon 04-14-2024 Hematocrit (Bld) [Volume fraction] 26.1 % Low 39-49 [facility] Comment on above: Performed By: #### U A #### [facility] ([id number]) [address] [place] [address] Hemoglobin (Bld) [Mass/Vol] 9.2 g/dL Low 13.0-17.0 [facility] Comment on above: Performed By: #### U A #### [facility] ([id number]) [address], [address] [place] [address] Hematocrit (Bld) [Volume fraction] 26.2 % Low 39-49 [facility] Comment on above: Performed By: #### U A #### [facility] ([id number]) [address] [place] [address] Hemoglobin (Bld) [Mass/Vol] 8.7 g/dL Low 13.0-17.0 [facility] Comment on above: Performed By: #### U A #### [facility] ([id number]) [address] [facility] [address] [place] [address] TTG AB IGA IGGon 04-14-2024 TTG AB IGA <1.2 Normal <4.0 (Negative) [facility] TTG AB IGG <1.2 Normal <6.0 (Negative) [facility] Comment on above: Result Comment: NOTE Test Performed by: [facility] [address] [place] [address] [employer] Specialist: Naty Doyle Ph.D.; CLIA# [id number] CBC AND AUTO DIFFon 04-13-20 Eosinophils (Bld) [#/Vol] 0.2 10*3/uL Normal 0.0-0.4 [facility] Comment on above: Performed By: #### C BCA, CMP ####[facility] ([id number])[address] [address] Eosinophils/100 WBC (Bld) 3.0 % Normal [facility] Comment on above: Performed By: #### C BCA, CMP ####[facility] ([id number])[address] [address], [place] [address] Erythrocyte distribution width (RBC) [Ratio] 14.4 % Normal 11.5-15.0 [facility] Comment on above: Performed By: #### C BCA, CMP ####[facility] ([id number])[address], [place] [address] Hematocrit (Bld) [Volume fraction] 17.2 % Low 39-49 [facility] Comment on above: Performed By: #### C BCA, CMP ####[facility] ([id number])[address], [address] [place] [address] Hemoglobin (Bld) [Mass/Vol] 5.8 g/dL Critically low 13.0-17.0 [facility] Comment on above: Performed By: #### C BCA, CMP ####[facility] ([id number])[address] [place] [address] Lymphocytes (Bld) [#/Vol] 2.1 10*3/uL Normal 1.0-3.5 [facility] Comment on above: Performed By: #### C BCA, CMP ####[facility] ([id number])[address] [address] Lymphocytes/100 WBC (Bld) 27.0 % Normal [facility] Comment on above: Performed By: #### C BCA, CMP ####[facility] ([id number])[address] [address] [place] [address] MCH (RBC) [Entitic mass] 30.4 pg Normal 27-34 [facility] Comment on above: Performed By: #### C BCA, CMP ####[facility] ([id number])[address] [address] [place] [address] MCHC (RBC) [Mass/Vol] 33.9 g/dL Normal 32-36 [facility] Comment on above: Performed By: #### C BCA, CMP ####[facility] ([id number])[address] [address] [place] [address] MCV (RBC) [Entitic vol] 90 fL Normal 80-100 [facility] Comment on above: Performed By: #### C BCA, CMP ####[facility] ([id number])[address], [place] [address] Metamyelocytes/100 WBC (Bld) 1.0 % Normal [facility] Comment on above: Performed By: #### C ZACHARY, CMP ####[facility] ([id number])[address], [place] [address] Monocytes (Bld) [#/Vol] 0.4 10*3/uL Normal 0-0.9 [facility] Comment on above: Performed By: #### C ZACHARY, CMP ####[facility] ([id number])[address], [place] [address] Monocytes/100 WBC (Bld) 5.0 % Normal [facility] Comment on above: Performed By: #### C ZACHARY, CMP ####[facility] ([id number])[address], [place] [address] Neutrophils (Bld) [#/Vol] 4.8 10*3/uL Normal 1.5-6.6 [facility] Comment on above: Performed By: #### C ZACHARY, CMP ####[facility] ([id number])[address], [place] [address] NUCLEATED RBC 1.0 /100 WBC Normal 0.0-1.0 [facility] Comment on above: Performed By: #### C ZACHARY, CMP ####[facility] ([id number])[address], [place] [address] Platelet mean volume (Bld) [Entitic vol] 7.3 fL Normal 7-12 [facility] Comment on above: Performed By: #### C ZACHARY, CMP ####[facility] ([id number])[address], [place] [address] Platelets (Bld) [#/Vol] 259 10*3/uL Normal 150-450 [facility] Comment on above: Performed By: #### C BCA, CMP ####[facility] ([id number])[address] [address] POLYCHROMASIA 2+ Abnormal NONE [facility] Comment on above: Performed By: #### C BCA, CMP ####[facility] ([id number])[address], [address] [address] RBC COUNT 1.92 X10E12/L Low 4.10-5.70 [facility] Comment on above: Performed By: #### C BCA, CMP ####[facility] ([id number])[address], [address], [place] [address] SEG NEUTROPHIL 64.0 % Normal [facility] Comment on above: Performed By: #### C BCA, CMP ####[facility] ([id number])[address], [place] [address] WBC (Bld) [#/Vol] 7.6 10*3/uL Normal 4.0-11.0 [facility] Comment on above: Performed By: #### C BCA, CMP ####[facility] ([id number])[address] [address] COMPREHENSIVE METABOLIC PANE [place] 04-13-2024 Albumin [Mass/Vol] 3.3 g/dL Normal 3.2-5.3 [facility] Comment on above: Performed By: #### C BCA, CMP ####[facility] ([id number])[address], [address] [address] ALP [Catalytic activity/Vol] 48 U/L Normal 39-130 [facility] Comment on above: Performed By: #### C BCA, CMP ####[facility] ([id number])[address] [address] ALT [Catalytic activity/Vol] 8 U/L Normal 0-40 [facility] Comment on above: Performed By: #### C BCA, CMP ####[facility] ([id number])[address], [place] [address] Anion gap [Moles/Vol] 8 mmol/L Normal 5-15 [facility] Comment on above: Performed By: #### C BCA, CMP ####[facility] ([id number])[address], [place] [address] AST [Catalytic activity/Vol] 7 U/L Normal 0-41 [facility] Comment on above: Performed By: #### C BCA, CMP ####[facility] ([id number])[address], [place] [address] Bilirubin [Mass/Vol] 0.5 mg/dL Normal 0.3-1.2 [facility] Comment on above: Performed By: #### C BCA, CMP ####[facility] ([id number])[address], [place] [address] Calcium [Mass/Vol] 8.4 mg/dL Low 8.5-10.5 [facility] Comment on above: Performed By: #### C BCA, CMP ####[facility] ([id number])[address], [address], [place] [address] Chloride [Moles/Vol] 102 mmol/L Normal 98-109 [facility] Comment on above: Performed By: #### C BCA, CMP ####[facility] ([id number])[address], [address], [place] [address] CO2 [Moles/Vol] 27 mmol/L Normal 22-32 [facility] Comment on above: Performed By: #### C BCA, CMP ####[facility] ([id number])[address], [place] [address] Creatinine [Mass/Vol] 0.64 mg/dL Normal 0.60-1.30 [facility] Comment on above: Result Comment: METH OD TRACEABLE TO IDMS STANDARD Performed By: #### C BCA, CMP ####[facility] ([id number])[address] [address], [place] [address] eGFR (CKD-EPI) NON-RACE DEPENDENT >90 Normal >59 [facility] Comment on above: Result Comment: Reported eGFR is based on the CKD-EPI 2020 equation that does not use a race coefficient. Performed By: #### C BCA, CMP ####[facility] ([id number])[address] [address] [address] Glucose [Mass/Vol] 218 mg/dL High 65-99 [facility] Comment on above: Performed By: #### C BCA, CMP ####[facility] ([id number])[address] [address] [address] Potassium [Moles/Vol] 3.7 mmol/L Normal 3.5-5.0 [facility] Comment on above: Performed By: #### C BCA, CMP ####[facility] ([id number])[address] [address], [place] [address] Protein [Mass/Vol] 4.9 g/dL Low 6.0-8.0 [facility] Comment on above: Performed By: #### C BCA, CMP ####[facility] ([id number])[address] [address] [address] Sodium [Moles/Vol] 137 mmol/L Normal 134-146 [facility] Comment on above: Performed By: #### C BCA, CMP ####[facility] ([id number])[address] [address] [address] Urea nitrogen [Mass/Vol] 35 mg/dL High 5-27 [facility] Comment on above: Performed By: #### C BCA, CMP ####[facility] ([id number])[address] [place] [address] [address] CTA ABD AND PELVISon 03-27 CT CTA ABD AND PELVIS CT CTA ABD AND PELVIS Lower GI bleed and significant drop in hemoglobin. Assess for retroperitoneal hemorrhage Comparison May 02, 2016 Procedure: Multidetector CT Angiogram performed with IV contrast through the abdomen and pelvis including 3 -D Maximum intensity projection reconstructions constructed under concurrent physician supervision on a independent workstation . 3 D images obtained to improve visualization of vascular detail. Automated exposure control was utilized Findings: The lack of oral contrast limits evaluation of abdominal parenchymal organs, adenopathy, and bowel. 3D reformatted images confirm the source data findings. Lung bases show no acute findings No free air or free fluid Prominent prostate gland which could be benign or malignant Appendix and terminal ileum appropriate Multiple bilateral kidney cystic foci stable. No follow-up required Liver spleen pancreas adrenal glands show no acute findings Abdominal aorta and bilateral common iliac arteries show extensive atherosclerotic calcific is no aneurysm dissection stenosis or occlusion Origins of celiac trunk SMA and renal arteries are patent No visceral aneurysm identified No acute arterial blush identified within the GI tract and no contrast identified within the bowel on delayed images No fracture. 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 Consider urology consultation. Utilized to localize a active lower GI bleed consider nuclear medicine GI bleeding study. All CT scans at this facility use dose modulation, iterative reconstruction, and/or weight based dosing when appropriate to reduce radiation dose to as low as reasonably achievable. Finalized by Melo Ruth MD on 04/13/2024 5:08 PM Normal [facility] Glucose Glucometer (dC) [M ass/Vol]on 04-13-2024 Glucose [Mass/Vol] 195 mg/dL High 65-99 [facility] Glucose [Mass/Vol] 215 mg/dL High 65-99 [facility] Glucose [Mass/Vol] 214 mg/dL High 65-99 [facility] Glucose [Mass/Vol] 208 mg/dL High 65-99 [facility] HGB AND HCTon 04-13-2024 Hematocrit (Bld) [Volume fraction] 24.2 % Low 39-49 [facility] Comment on above: Performed By: #### U A #### [facility] ([id number]) [address], [address] [place] [address] Hemoglobin (Bld) [Mass/Vol] 8.5 g/dL Low 13.0-17.0 [facility] Comment on above: Performed By: #### U A #### [facility] ([id number]) [address], [address] [place] [address] Hematocrit (Bld) [Volume fraction] 22.5 % Low 39-49 [facility] Comment on above: Performed By: #### H H ####[facility] ([id number])[address], [place] [address] Hemoglobin (Bld) [Mass/Vol] 7.8 g/dL Low 13.0-17.0 [facility] Comment on above: Performed By: #### H H ####[facility] ([id number])[address] [address] Hematocrit (Bld) [Volume fraction] 16.3 % Low 39-49 [facility] Comment on above: Performed By: #### H H ####[facility] ([id number])[address], [address] [address] Hemoglobin (Bld) [Mass/Vol] 5.9 g/dL Critically low 13.0-17.0 [facility] Comment on above: Performed By: #### H H ####[facility] ([id number])[address], [address], [place] [address] CBC AND AUTO DIFFon 04-12-20 24 ABSOLUTE BASOPHIL 0.0 X10E9/L Normal 0.0-0.2 [facility] Comment on above: Performed By: #### C BCA, CMP #### [facility] ([id number]) [address], [address] [place] [address] ABSOLUTE NEUTROPHIL 4.8 X10E9/L Normal 1.5-6.6 [facility] Comment on above: Performed By: #### C BCA, CMP #### [facility] ([id number]) [address], [address] [place] [address] Basophils/100 WBC (Bld) 0.6 % Normal [facility] Comment on above: Performed By: #### C BCA, CMP #### [facility] ([id number]) [address], [address] [place] [address] Eosinophils (Bld) [#/Vol] 0.0 10*3/uL Normal 0.0-0.4 [facility] Comment on above: Performed By: #### C BCA, CMP #### [facility] ([id number]) [address], [address] [place] [address] Eosinophils/100 WBC (Bld) 0.5 % Normal [facility] Comment on above: Performed By: #### C BCA, CMP #### [facility] ([id number]) [address], [address] [place] [address] Erythrocyte distribution width (RBC) [Ratio] 14.4 % Normal 11.5-15.0 [facility] Comment on above: Performed By: #### C BCA, CMP #### [facility] ([id number]) [address] [address] [place] [address] Hematocrit (Bld) [Volume fraction] 22.5 % Low 39-49 [facility] Comment on above: Performed By: #### C BCA, CMP #### [facility] ([id number]) [address], [address] [place] [address] Hemoglobin (Bld) [Mass/Vol] 7.9 g/dL Low 13.0-17.0 [facility] Comment on above: Performed By: #### C BCA, CMP #### [facility] ([id number]) [address], [address] [place] [address] Lymphocytes (Bld) [#/Vol] 1.6 10*3/uL Normal 1.0-3.5 [facility] Comment on above: Performed By: #### C BCA, CMP #### [facility] ([id number]) [address], [facility] [address] [place] [address] Lymphocytes/100 WBC (Bld) 22.9 % Normal [facility] Comment on above: Performed By: #### C BCA, CMP #### [facility] ([id number]) [address], [address] [place] [address] MCH (RBC) [Entitic mass] 31.4 pg Normal 27-34 [facility] Comment on above: Performed By: #### C ZACHARY, CMP #### [facility] ([id number]) [address], [address] [place] [address] MCHC (RBC) [Mass/Vol] 35.1 g/dL Normal 32-36 [facility] Comment on above: Performed By: #### C BCA, CMP #### [facility] ([id number]) [address], [address] [place] [address] MCV (RBC) [Entitic vol] 90 fL Normal 80-100 [facility] Comment on above: Performed By: #### C BCA, CMP #### [facility] ([id number]) [address], [address] [place] [address] Monocytes (Bld) [#/Vol] 0.4 10*3/uL Normal 0-0.9 [facility] Comment on above: Performed By: #### C BCA, CMP #### [facility] ([id number]) [address], [address] [place] [address] Monocytes/100 WBC (Bld) 5.7 % Normal [facility] Comment on above: Performed By: #### C BCA, CMP #### [facility] ([id number]) [address], [address] [place] [address] Neutrophils/100 WBC (Bld) 70.3 % Normal [facility] Comment on above: Performed By: #### C BCA, CMP #### [facility] ([id number]) [address], [address] [place] [address] Platelet mean volume (Bld) [Entitic vol] 7.4 fL Normal 7-12 [facility] Comment on above: Performed By: #### C BCA, CMP #### [facility] ([id number]) [address], [address] [place] [address] Platelets (Bld) [#/Vol] 281 10*3/uL Normal 150-450 [facility] Comment on above: Performed By: #### C BCA, CMP #### [facility] ([id number]) [address], [address] [place] [address] RBC COUNT 2.52 X10E12/L Low 4.10-5.70 [facility] Comment on above: Performed By: #### C BCA, CMP #### [facility] ([id number]) [address], [address] [place] [address] WBC (Bld) [#/Vol] 6.9 10*3/uL Normal 4.0-11.0 [facility] Comment on above: Performed By: #### C BCA, CMP #### [facility] ([id number]) [address], [address] [place] [address] COMPREHENSIVE METABOLIC PANE [place]onte 04-12-2024 Albumin [Mass/Vol] 3.9 g/dL Normal 3.2-5.3 [facility] Comment on above: Performed By: #### C BCA, CMP #### [facility] ([id number]) [address], [address] [place] [address] ALP [Catalytic activity/Vol] 58 U/L Normal 39-130 [facility] Comment on above: Performed By: #### C BCA, CMP #### [facility] ([id number]) [address], [address] [place] [address] ALT [Catalytic activity/Vol] 9 U/L Normal 0-40 [facility] Comment on above: Performed By: #### C BCA, CMP #### [facility] ([id number]) [address], [address] [place] [address] Anion gap [Moles/Vol] 9 mmol/L Normal 5-15 [facility] Comment on above: Performed By: #### C BCA, CMP #### [facility] ([id number]) [address], [address] [place] [address] AST [Catalytic activity/Vol] 9 U/L Normal 0-41 [facility] Comment on above: Performed By: #### C BCA, CMP #### [facility] ([id number]) [address], [address] [place] [address] Bilirubin [Mass/Vol] 0.6 mg/dL Normal 0.3-1.2 [facility] Comment on above: Performed By: #### C BCA, CMP #### [facility] ([id number]) [address], [address] [place] [address] Calcium [Mass/Vol] 8.8 mg/dL Normal 8.5-10.5 [facility] Comment on above: Performed By: #### C BCA, CMP #### [facility] ([id number]) [address], [address] [place] [address] Chloride [Moles/Vol] 104 mmol/L Normal 98-109 [facility] Comment on above: Performed By: #### C BCA, CMP #### [facility] ([id number]) [address], [address] [place] [address] CO2 [Moles/Vol] 27 mmol/L Normal 22-32 [facility] Comment on above: Performed By: #### C BCA, CMP #### [facility] ([id number]) [address], [address] [place] [address] Creatinine [Mass/Vol] 0.62 mg/dL Normal 0.60-1.30 [facility] Comment on above: Result Comment: METH OD TRACEABLE TO IDMS STANDARD Performed By: #### C BCA, CMP #### [facility] ([id number]) [address] [address] [place] [address] eGFR (CKD-EPI) NON-RACE DEPENDENT >90 Normal >59 [facility] Comment on above: Result Comment: Reported eGFR is based on the CKD-EPI 2020 equation that does not use a race coefficient. Performed By: #### C BCA, CMP #### [facility] ([id number]) [address], [address] [place] [address] Glucose [Mass/Vol] 206 mg/dL High 65-99 [facility] Comment on above: Performed By: #### C BCA, CMP #### [facility] ([id number]) [address], [address] [place] [address] Potassium [Moles/Vol] 3.7 mmol/L Normal 3.5-5.0 [facility] Comment on above: Performed By: #### C BCA, CMP #### [facility] ([id number]) [address] [address] [place] [address] Protein [Mass/Vol] 5.8 g/dL Low 6.0-8.0 [facility] Comment on above: Performed By: #### C BCA, CMP #### [facility] ([id number]) [address], [address] [place] [address] Sodium [Moles/Vol] 140 mmol/L Normal 134-146 [facility] Comment on above: Performed By: #### C BCA, CMP #### [facility] ([id number]) [address], [address] [place] [address] Urea nitrogen [Mass/Vol] 24 mg/dL Normal 5-27 [facility] Comment on above: Performed By: #### C BCA, CMP #### [facility] ([id number]) [address], [address] [address] Glucose Glucometer (BldC) [M ass/Vol]on 04-12-2024 Glucose [Mass/Vol] 231 mg/dL High 65-99 [facility] Glucose [Mass/Vol] 201 mg/dL High 65-99 [facility] Glucose [Mass/Vol] 265 mg/dL High 65-99 [facility] Glucose [Mass/Vol] 242 mg/dL High 65-99 [facility] comment Harsh (Repo rt)on 04-12-2024 PLATELET INHIB,P2Y12 324 PRU Normal [facility] Comment on above: Result Comment: Low hematocrit, low platelet count and some hereditary disorders may affect results. Normal platelet reactivity due to low P2Y12 inhibition response. The P2Y12 Test should be interpreted in conjunction with other clinical and lab data. Performed By: #### C BCA, CMP #### [facility] ([id number]) [address], [address] [place] [address] MR BRAIN WO CONTon MR BRAIN WO CONT MR BRAIN WO CONT STUDY: MRI brain without contrast CLINICAL HISTORY: Neuro deficit, acute, stroke suspected COMPARISON: 04/09/2024 TECHNIQUE: Routine multiplanar multisequence MR imaging of the brain was performed without contrast. FINDINGS: Motion degraded exam, particularly heme sensitive series, findings may be obscured. Acute ischemia within multifocal regions of the right MCA territory, notably involving and anterior right temporal lobe, right temporal parietal region and deep/watershed region, larger area of prior internal watershed encephalomalacia. No ischemia and additional territory. Extraocular dilatation of the ventricular system without signs of ventricular outflow obstruction. No convincing acute intracranial hemorrhage [most sensitive series degraded by motion]. Severe stenosis right M1 MCA, downstream slow flow. Lens are placement. Unremarkable visualized suprahyoid neck, scalp soft tissues, temporal bone structures. Mucosal thickening ethmoid air cells, sphenoid sinus. IMPRESSION: 1. Multifocal acute ischemia throughout much of right MCA territory. 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 2. Severe stenosis right M1 MCA, slow flow downstream branches. Finalized by Macho Metz MD on 04/12/2024 11:08 PM Normal [facility] CBC AND AUTO DIFFon 04-11-20 24 ABSOLUTE BASOPHIL 0.0 X10E9/L Normal 0.0-0.2 [facility] Comment on above: Performed By: #### C ZACHARY, CMP, 73128-8 #### [facility] ([id number]) [address], [address] [place] [address] ABSOLUTE NEUTROPHIL 5.2 X10E9/L Normal 1.5-6.6 [facility] Comment on above: Performed By: #### C BCA, CMP, 08254-9 #### [facility] ([id number]) [address], [address] [place] [address] Basophils/100 WBC (Bld) 0.6 % Normal [facility] Comment on above: Performed By: #### C BCA, CMP, 00129-4 #### [facility] ([id number]) [address] [place] [address] Eosinophils (Bld) [#/Vol] 0.0 10*3/uL Normal 0.0-0.4 [facility] Comment on above: Performed By: #### C BCA, CMP, 14250-8 #### [facility] ([id number]) [address], [address] [place] [address] Eosinophils/100 WBC (Bld) 0.3 % Normal [facility] Comment on above: Performed By: #### C BCA, CMP, 71008-2 #### [facility] ([id number]) [address], [address] [place] [address] Erythrocyte distribution width (RBC) [Ratio] 14.8 % Normal 11.5-15.0 [facility] Comment on above: Performed By: #### C BCA, CMP, 31199-7 #### [facility] ([id number]) [address], [address] [place] [address] Hematocrit (Bld) [Volume fraction] 22.2 % Low 39-49 [facility] Comment on above: Performed By: #### C BCA, CMP, 48956-6 #### [facility] ([id number]) [address], [address] [place] [address] Hemoglobin (Bld) [Mass/Vol] 7.8 g/dL Low 13.0-17.0 [facility] Comment on above: Performed By: #### C BCA, CMP, 09296-6 #### [facility] ([id number]) [address], [address] [place] [address] Lymphocytes (Bld) [#/Vol] 1.2 10*3/uL Normal 1.0-3.5 [facility] Comment on above: Performed By: #### C BCA, CMP, 87433-0 #### [facility] ([id number]) [address], [address] [place] [address] Lymphocytes/100 WBC (Bld) 17.7 % Normal [facility] Comment on above: Performed By: #### C BCA, CMP, 83317-2 #### [facility] ([id number]) [address], [address] [place] [address] MCH (RBC) [Entitic mass] 31.6 pg Normal 27-34 [facility] Comment on above: Performed By: #### Thais SHARMA CMP, 60979-2 #### [facility] ([id number]) [address], [address] [place] [address] MCHC (RBC) [Mass/Vol] 35.3 g/dL Normal 32-36 [facility] Comment on above: Performed By: #### C ZACHARY, CMP, 71372-6 #### [facility] ([id number]) [address], [address] [place] [address] MCV (RBC) [Entitic vol] 90 fL Normal 80-100 [facility] Comment on above: Performed By: #### Thais SHARMA CMP, 71766-4 #### [facility] ([id number]) [address], [address] [place] [address] Monocytes (Bld) [#/Vol] 0.4 10*3/uL Normal 0-0.9 [facility] Comment on above: Performed By: #### Thais SHARMA, CMP, 46283-2 #### [facility] ([id number]) [address], [address] [place] [address] Monocytes/100 WBC (Bld) 5.2 % Normal [facility] Comment on above: Performed By: #### Thais SHARMA, CMP, 89083-0 #### [facility] ([id number]) [address], [address] [place] [address] Neutrophils/100 WBC (Bld) 76.2 % Normal [facility] Comment on above: Performed By: #### Thais SHARMA, CMP, 87634-2 #### [facility] ([id number]) [address], [address] [place] [address] Platelet mean volume (Bld) [Entitic vol] 7.6 fL Normal 7-12 [facility] Comment on above: Performed By: #### C BCA, CMP, 82151-7 #### [facility] ([id number]) [address], [address] [place] [address] Platelets (Bld) [#/Vol] 280 10*3/uL Normal 150-450 [facility] Comment on above: Performed By: #### C BCA, CMP, 45446-1 #### [facility] ([id number]) [address], [address] [place] [address] RBC COUNT 2.48 X10E12/L Low 4.10-5.70 [facility] Comment on above: Performed By: #### C BCA, CMP, 08631-7 #### [facility] ([id number]) [address], [address] [place] [address] WBC (Bld) [#/Vol] 6.8 10*3/uL Normal 4.0-11.0 [facility] Comment on above: Performed By: #### C BCA, CMP, 13891-3 #### [facility] ([id number]) [address], [address] [place] [address] COMPREHENSIVE METABOLIC PANE [place] 04-11-2024 Albumin [Mass/Vol] 3.7 g/dL Normal 3.2-5.3 [facility] Comment on above: Performed By: #### C BCA, CMP, 49849-0 #### [facility] ([id number]) [address], [address] [place] [address] ALP [Catalytic activity/Vol] 52 U/L Normal 39-130 [facility] Comment on above: Performed By: #### C BCA, CMP, 24225-9 #### [facility] ([id number]) [address], [address] [place] [address] ALT [Catalytic activity/Vol] 9 U/L Normal 0-40 [facility] Comment on above: Performed By: #### C BCA, CMP, 61477-8 #### [facility] ([id number]) [address], [address] [place] [address] Anion gap [Moles/Vol] 8 mmol/L Normal 5-15 [facility] Comment on above: Performed By: #### C BCA, CMP, 22504-5 #### [facility] ([id number]) [address], [address] [place] [address] AST [Catalytic activity/Vol] 17 U/L Normal 0-41 [facility] Comment on above: Performed By: #### C BCA, CMP, 52762-8 #### [facility] ([id number]) [address], [address] [place] [address] Bilirubin [Mass/Vol] 0.5 mg/dL Normal 0.3-1.2 [facility] Comment on above: Performed By: #### C BCA, CMP, 99162-6 #### [facility] ([id number]) [address], [address] [place] [address] Calcium [Mass/Vol] 8.5 mg/dL Normal 8.5-10.5 [facility] Comment on above: Performed By: #### C BCA, CMP, 52059-3 #### [facility] ([id number]) [address], [address] [place] [address] Chloride [Moles/Vol] 110 mmol/L High 98-109 [facility] Comment on above: Performed By: #### C BCA, CMP, 08462-2 #### [facility] ([id number]) [address], [address] [place] [address] CO2 [Moles/Vol] 25 mmol/L Normal 22-32 [facility] Comment on above: Performed By: #### C BCA, CMP, 96300-6 #### [facility] ([id number]) [address], [address] [place] [address] Creatinine [Mass/Vol] 0.72 mg/dL Normal 0.60-1.30 [facility] Comment on above: Result Comment: METH OD TRACEABLE TO IDMS STANDARD Performed By: #### C NAHOMY SHARMA, 98745-3 #### [facility] ([id number]) [address], [address] [place] [address] eGFR (CKD-EPI) NON-RACE DEPENDENT >90 Normal >59 [facility] Comment on above: Result Comment: Reported eGFR is based on the CKD-EPI 2020 equation that does not use a race coefficient. Performed By: #### C ZACHARY CMP, 04592-4 #### [facility] ([id number]) [address], [address] [place] [address] Glucose [Mass/Vol] 175 mg/dL High 65-99 [facility] Comment on above: Performed By: #### C ZACHARY CMP, 41602-2 #### [facility] ([id number]) [address] [place] [address] Potassium [Moles/Vol] 4.2 mmol/L Normal 3.5-5.0 [facility] Comment on above: Result Comment: SPEC IMEN HEMOLYZED, RESULTS INCREASED MODERATELY HEMOLYZED Performed By: #### C ZACHARY CMP, 05574-4 #### [facility] ([id number]) [address], [address] [place] [address] Protein [Mass/Vol] 5.6 g/dL Low 6.0-8.0 [facility] Comment on above: Performed By: #### C ZACHARY, CMP, 87879-0 #### [facility] ([id number]) [address], [address] [place] [address] Sodium [Moles/Vol] 143 mmol/L Normal 134-146 [facility] Comment on above: Performed By: #### C BCA, CMP, 15795-3 #### [facility] ([id number]) [address], [address] [place] [address] Urea nitrogen [Mass/Vol] 41 mg/dL High 5-27 [facility] Comment on above: Performed By: #### C ZACHARY, CMP, 56214-7 #### [facility] [facility] ([id number]) [address], [address] [place] [address] Glucose Glucometer (BldC) [M ass/Vol]on 04-11-2024 Glucose [Mass/Vol] 254 mg/dL High 65-99 [facility] Glucose [Mass/Vol] 282 mg/dL High 65-99 [facility] Glucose [Mass/Vol] 213 mg/dL High 65-[address] [facility] Glucose [Mass/Vol] 236 mg/dL High 65-99 [facility] Glucose [Mass/Vol] 192 mg/dL High 65-99 [facility] Glucose [Mass/Vol] 187 mg/dL High 65-99 [facility] aPTT Coag (PPP) [Time]on aPTT Coag (Bld) [Time] 29 s Normal 26-37 [facility] Comment on above: Performed By: #### C ZACHARY, CMP, 61853-2 #### [facility] ([id number]) [address] [place] [address] CBC AND AUTO DIFFon 04-10-20 24 ABSOLUTE BASOPHIL 0.0 X10E9/L Normal 0.0-0.2 [facility] Comment on above: Performed By: #### C ZACHARY, CMP #### [facility] ([id number]) [address], [address] [place] [address] ABSOLUTE NEUTROPHIL 6.1 X10E9/L Normal 1.5-6.6 [facility] Comment on above: Performed By: #### C BCA, CMP #### [facility] ([id number]) [address], [address] [place] [address] Basophils/100 WBC (Bld) 0.3 % Normal [facility] Comment on above: Performed By: #### C ZACHARY, CMP #### [facility] ([id number]) [address], [address] [place] [address] Eosinophils (Bld) [#/Vol] 0.0 10*3/uL Normal 0.0-0.4 [facility] Comment on above: Performed By: #### C ZACHARY, CMP #### [facility] ([id number]) [address], [address] [place] [address] Eosinophils/100 WBC (Bld) 0.1 % Normal [facility] Comment on above: Performed By: #### C ZACHARY, CMP #### [facility] ([id number]) [address], [address] [place] [address] Erythrocyte distribution width (RBC) [Ratio] 14.3 % Normal 11.5-15.0 [facility] Comment on above: Performed By: #### C ZACHARY, CMP #### [facility] ([id number]) [address], [address] [place] [address] Hematocrit (Bld) [Volume fraction] 22.7 % Low 39-49 [facility] Comment on above: Performed By: #### C ZACHARY, CMP #### [facility] ([id number]) [address], [address] [place] [address] Hemoglobin (Bld) [Mass/Vol] 7.9 g/dL Low 13.0-17.0 [facility] Comment on above: Performed By: #### C ZACHARY, CMP #### [facility] ([id number]) [address], [address] [place] [address] Lymphocytes (Bld) [#/Vol] 1.1 10*3/uL Normal 1.0-3.5 [facility] Comment on above: Performed By: #### C BCA, CMP #### [facility] ([id number]) [address], [address] [place] [address] Lymphocytes/100 WBC (Bld) 14.5 % Normal [facility] Comment on above: Performed By: #### C BCA, CMP #### [facility] ([id number]) [address], [address] [place] [address] MCH (RBC) [Entitic mass] 31.2 pg Normal 27-34 [facility] Comment on above: Performed By: #### C BCA, CMP #### [facility] ([id number]) [address], [address] [place] [address] MCHC (RBC) [Mass/Vol] 35.1 g/dL Normal 32-36 [facility] Comment on above: Performed By: #### C BCA, CMP #### [facility] ([id number]) [address], [address] [place] [address] MCV (RBC) [Entitic vol] 89 fL Normal 80-100 [facility] Comment on above: Performed By: #### C BCA, CMP #### [facility] ([id number]) [address], [address] [place] [address] Monocytes (Bld) [#/Vol] 0.3 10*3/uL Normal 0-0.9 [facility] Comment on above: Performed By: #### C BCA, CMP #### [facility] ([id number]) [address], [address] [place] [address] Monocytes/100 WBC (Bld) 4.3 % Normal [facility] Comment on above: Performed By: #### C BCA, CMP #### [facility] ([id number]) [address], [address] [place] [address] Neutrophils/100 WBC (Bld) 80.8 % Normal [facility] Comment on above: Performed By: #### C BCA, CMP #### [facility] ([id number]) [address], [address] [place] [address] Platelet mean volume (Bld) [Entitic vol] 7.2 fL Normal 7-12 [facility] Comment on above: Performed By: #### C BCA, CMP #### [facility] ([id number]) [address], [facility] [address] [place] [address] Platelets (Bld) [#/Vol] 285 10*3/uL Normal 150-450 [facility] Comment on above: Performed By: #### C BCA, CMP #### [facility] ([id number]) [address] [address] [place] [address] RBC COUNT 2.55 X10E12/L Low 4.10-5.70 [facility] Comment on above: Performed By: #### C BCA, CMP #### [facility] ([id number]) [address], [address] [address] WBC (Bld) [#/Vol] 7.6 10*3/uL Normal 4.0-11.0 [facility] Comment on above: Performed By: #### C BCA, CMP #### [facility] ([id number]) [address] [address] ABSOLUTE BASOPHIL 0.0 X10E9/L Normal 0.0-0.2 [facility] Comment on above: Performed By: #### P INR, 97222-6, 25660-1, CBCA, 26971-3, CMP, 4548-4, 6873-4 #### [facility] ([id number]) [address] [place] [address], [place] [address] #### HA1C #### [facility] ([id number]) [address], [address] [place] [address] ABSOLUTE NEUTROPHIL 6.7 X10E9/L High 1.5-6.6 [facility] Comment on above: Performed By: #### P INR, 50699-2, 48081-8, CBCA, 21684-6, CMP, 4548-4, 6873-4 #### [facility] ([id number]) [address] [place] [address] #### HA1C #### [facility] ([id number]) [address] [place] [address] Basophils/100 WBC (Bld) 0.3 % Normal [facility] Comment on above: Performed By: #### P INR, 48514-1, 08169-9, CBCA, 09283-8, CMP, 4548-4, 6873-4 #### [facility] ([id number]) [address] [place] [address] #### HA1C #### [facility] ([id number]) [address] [facility] [place] [address] Eosinophils (Bld) [#/Vol] 0.0 10*3/uL Normal 0.0-0.4 [facility] Comment on above: Performed By: #### P INR, 19402-6, 02908-8, CBCA, 48665-9, CMP, 4548-4, 6873-4 #### [facility] ([id number]) [address] [place] [address] #### HA1C #### [facility] ([id number]) [address] [facility] [place] [address] Eosinophils/100 WBC (Bld) 0.1 % Normal [facility] Comment on above: Performed By: #### P INR, 94133-3, 88602-7, CBCA, 45905-4, CMP, 4548-4, 6873-4 #### [facility] ([id number]) [address] [place] [address] #### HA1C #### [facility] ([id number]) [address], [address] [place] [address] Erythrocyte distribution width (RBC) [Ratio] 14.3 % Normal 11.5-15.0 [facility] Comment on above: Performed By: #### P INR, 68130-1, 71956-5, CBCA, 32365-7, CMP, 4548-4, 6873-4 #### [facility] ([id number]) [address] [place] [address] #### HA1C #### [facility] ([id number]) [address] [address] [place] [address] Hematocrit (Bld) [Volume fraction] 25.1 % Low 39-49 [facility] Comment on above: Performed By: #### P INR, 69046-0, 11014-6, CBCA, 25198-7, CMP, 4548-4, 6873-4 #### [facility] ([id number]) [address] [place] [address] #### HA1C #### [facility] ([id number]) [address], [address] [place] [address] Hemoglobin (Bld) [Mass/Vol] 8.7 g/dL Low 13.0-17.0 [facility] Comment on above: Performed By: #### P INR, 40827-7, 55686-2, CBCA, 85646-9, CMP, 4548-4, 6873-4 #### [facility] ([id number]) [address] [place] [address] #### HA1C #### [facility] ([id number]) [address], [address] [place] [address] Lymphocytes (Bld) [#/Vol] 1.3 10*3/uL Normal 1.0-3.5 [facility] Comment on above: Performed By: #### P INR, 23812-1, 41357-8, CBCA, 45873-9, CMP, 4548-4, 6873-4 #### [facility] ([id number]) [address] [place] [address] #### HA1C #### [facility] ([id number]) [address], [address] [place] [address] Lymphocytes/100 WBC (Bld) 15.7 % Normal [facility] Comment on above: Performed By: #### P INR, 71106-6, 70157-9, CBCA, 19696-1, CMP, 4548-4, 6873-4 #### [facility] ([id number]) [address] [place] [address] #### HA1C #### [facility] ([id number]) [address], [address] [place] [address] MCH (RBC) [Entitic mass] 30.6 pg Normal 27-34 [facility] Comment on above: Performed By: #### P INR, 70622-8, 43908-8, CBCA, 51467-6, CMP, 4548-4, 6873-4 #### [facility] ([id number]) [address] [place] [address] #### HA1C #### [facility] ([id number]) [address], [address] [place] [address] MCHC (RBC) [Mass/Vol] 34.8 g/dL Normal 32-36 [facility] Comment on above: Performed By: #### P INR, 14992-1, 07545-1, CBCA, 00751-0, CMP, 4548-4, 6873-4 #### [facility] ([id number]) [address] [place] [address] #### HA1C #### [facility] ([id number]) [address], [address] [place] [address] MCV (RBC) [Entitic vol] 88 fL Normal 80-100 [facility] Comment on above: Performed By: #### P INR, 56491-0, 50423-1, CBCA, 81427-7, CMP, 4548-4, 6873-4 #### [facility] ([id number]) [address] [place] [address] #### HA1C #### [facility] ([id number]) [address] [facility] [place] [address] Monocytes (Bld) [#/Vol] 0.4 10*3/uL Normal 0-0.9 [facility] Comment on above: Performed By: #### P INR, 29748-8, 98912-3, CBCA, 42976-0, CMP, 4548-4, 6873-4 #### [facility] ([id number]) [address] [place] [address] #### HA1C #### [facility] ([id number]) [address] [facility] [place] [address] Monocytes/100 WBC (Bld) 5.0 % Normal [facility] Comment on above: Performed By: #### P INR, 97000-7, 35942-3, CBCA, 99299-6, CMP, 4548-4, 6873-4 #### [facility] ([id number]) [address] [place] [address] #### HA1C #### [facility] ([id number]) [address], [address] [place] [address] Neutrophils/100 WBC (Bld) 78.9 % Normal [facility] Comment on above: Performed By: #### P INR, 27154-8, 03079-5, CBCA, 19855-7, CMP, 4548-4, 6873-4 #### [facility] ([id number]) [address] [place] [address] #### HA1C #### [facility] ([id number]) [address] [facility] [place] [address] Platelet mean volume (Bld) [Entitic vol] 7.4 fL Normal 7-12 [facility] Comment on above: Performed By: #### P INR, 34760-0, 10626-1, CBCA, 82451-2, CMP, 4548-4, 6873-4 #### [facility] ([id number]) [address] [place] [address] #### HA1C #### [facility] ([id number]) [address] [facility] [place] [address] Platelets (Bld) [#/Vol] 285 10*3/uL Normal 150-450 [facility] Comment on above: Performed By: #### P INR, 49569-4, 87637-0, CBCA, 34539-7, CMP, 4548-4, 6873-4 #### [facility] ([id number]) [address] [place] [address] #### HA1C #### [facility] ([id number]) [address] [facility] [place] [address] RBC COUNT 2.86 X10E12/L Low 4.10-5.70 [facility] Comment on above: Performed By: #### P INR, 70450-6, 16717-9, CBCA, 45467-2, CMP, 4548-4, 6873-4 #### [facility] ([id number]) [address] [place] [address], [place] [address] #### HA1C #### [facility] ([id number]) [address], [address] [place] [address] WBC (Bld) [#/Vol] 8.5 10*3/uL Normal 4.0-11.0 [facility] Comment on above: Performed By: #### P INR, 66214-8, 22535-9, CBCA, 54014-0, CMP, 4548-4, 6873-4 #### [facility] ([id number]) [address] [place] [address] #### HA1C #### [facility] ([id number]) [address], [address] [place] [address] COMPREHENSIVE METABOLIC PANE [place] 04-10-2024 Albumin [Mass/Vol] 3.9 g/dL Normal 3.2-5.3 [facility] Comment on above: Performed By: #### C BCA, CMP #### [facility] ([id number]) [address], [address] [place] [address] ALP [Catalytic activity/Vol] 54 U/L Normal 39-130 [facility] Comment on above: Performed By: #### C BCA, CMP #### [facility] ([id number]) [address] [place] [address] ALT [Catalytic activity/Vol] 8 U/L Normal 0-40 [facility] Comment on above: Performed By: #### C BCA, CMP #### [facility] ([id number]) [address], [address] [place] [address] Anion gap [Moles/Vol] 9 mmol/L Normal 5-15 [facility] Comment on above: Performed By: #### C BCA, CMP #### [facility] ([id number]) [address], [address] [place] [address] AST [Catalytic activity/Vol] 10 U/L Normal 0-41 [facility] Comment on above: Performed By: #### C BCA, CMP #### [facility] ([id number]) [address] [place] [address] Bilirubin [Mass/Vol] 0.6 mg/dL Normal 0.3-1.2 [facility] Comment on above: Performed By: #### C BCA, CMP #### [facility] ([id number]) [address], [address] [place] [address] Calcium [Mass/Vol] 8.8 mg/dL Normal 8.5-10.5 [facility] Comment on above: Performed By: #### C BCA, CMP #### [facility] ([id number]) [address] [place] [address] Chloride [Moles/Vol] 109 mmol/L Normal 98-109 [facility] Comment on above: Performed By: #### C BCA, CMP #### [facility] ([id number]) [address] [place] [address] CO2 [Moles/Vol] 23 mmol/L Normal 22-32 [facility] Comment on above: Performed By: #### C BCA, CMP #### [facility] ([id number]) [address], [address] [place] [address] Creatinine [Mass/Vol] 0.83 mg/dL Normal 0.60-1.30 [facility] Comment on above: Result Comment: METH OD TRACEABLE TO IDMS STANDARD Performed By: #### C BCA, CMP #### [facility] ([id number]) [address], [address] [place] [address] eGFR (CKD-EPI) NON-RACE DEPENDENT >90 Normal >59 [facility] Comment on above: Result Comment: Reported eGFR is based on the CKD-EPI 2020 equation that does not use a race coefficient. Performed By: #### C BCA, CMP #### [facility] ([id number]) [address], [address] [place] [address] Glucose [Mass/Vol] 193 mg/dL High 65-99 [facility] Comment on above: Performed By: #### C BCA, CMP #### [facility] ([id number]) [address], [address] [place] [address] Potassium [Moles/Vol] 4.1 mmol/L Normal 3.5-5.0 [facility] Comment on above: Performed By: #### C BCA, CMP #### [facility] ([id number]) [address], [address] [place] [address] Protein [Mass/Vol] 5.7 g/dL Low 6.0-8.0 [facility] Comment on above: Performed By: #### C BCA, CMP #### [facility] ([id number]) [address], [address] [place] [address] Sodium [Moles/Vol] 141 mmol/L Normal 134-146 [facility] Comment on above: Performed By: #### C BCA, CMP #### [facility] ([id number]) [address], [address] [place] [address] Urea nitrogen [Mass/Vol] 54 mg/dL High 5-27 [facility] Comment on above: Performed By: #### C BCA, CMP #### [facility] ([id number]) [address], [address] [place] [address] Albumin [Mass/Vol] 3.8 g/dL Normal 3.2-5.3 [facility] Comment on above: Performed By: #### P INR, 48823-1, 09868-7, CBCA, 78714-5, CMP, 8218-4, 8573-4 #### [facility] ([id number]) [address] [place] [address] #### HA1C #### [facility] ([id number]) [address], [address] [place] [address] ALP [Catalytic activity/Vol] 55 U/L Normal 39-130 [facility] Comment on above: Performed By: #### P INR, 09857-3, 81815-4, CBCA, 35648-8, CMP, 4548-4, 6873-4 #### [facility] ([id number]) [address] [place] [address] #### HA1C #### [facility] ([id number]) [address], [address] [place] [address] ALT [Catalytic activity/Vol] 13 U/L Normal 0-40 [facility] Comment on above: Performed By: #### P INR, 04299-8, 86465-5, CBCA, 97538-4, CMP, 4548-4, 6873-4 #### [facility] ([id number]) [address] [place] [address] #### HA1C #### [facility] ([id number]) [address] [place] [address] Anion gap [Moles/Vol] 11 mmol/L Normal 5-15 [facility] Comment on above: Performed By: #### P INR, 86825-4, 57044-6, CBCA, 12165-3, CMP, 4548-4, 6873-4 #### [facility] ([id number]) [address] [place] [address] #### HA1C #### [facility] ([id number]) [address] [place] [address] AST [Catalytic activity/Vol] 14 U/L Normal 0-41 [facility] Comment on above: Performed By: #### P INR, 76116-9, 27486-0, CBCA, 81453-6, CMP, 4548-4, 6873-4 #### [facility] ([id number]) [address] [place] [address] #### HA1C #### [facility] ([id number]) [address] [place] [address] Bilirubin [Mass/Vol] 0.4 mg/dL Normal 0.3-1.2 [facility] Comment on above: Performed By: #### P INR, 99875-5, 10292-9, CBCA, 01377-0, CMP, 4548-4, 6873-4 #### [facility] ([id number]) [address] [place] [address] #### HA1C #### [facility] ([id number]) [address] [place] [address] Calcium [Mass/Vol] 8.6 mg/dL Normal 8.5-10.5 [facility] Comment on above: Performed By: #### P INR, 02485-3, 48827-1, CBCA, 62498-0, CMP, 4548-4, 6873-4 #### [facility] ([id number]) [address] [place] [address] #### HA1C #### [facility] ([id number]) [address] [place] [address] Chloride [Moles/Vol] 106 mmol/L Normal 98-109 [facility] Comment on above: Performed By: #### P INR, 89207-1, 51528-2, CBCA, 87159-9, CMP, 4548-4, 6873-4 #### [facility] ([id number]) [address] [place] [address] [place] [address] #### HA1C #### [facility] ([id number]) [address] [place] [address] CO2 [Moles/Vol] 20 mmol/L Low 22-32 [facility] Comment on above: Performed By: #### P INR, 12645-4, 39785-9, CBCA, 16300-6, CMP, 4548-4, 6873-4 #### [facility] ([id number]) [address] [place] [address] #### HA1C #### [facility] ([id number]) [address] [facility] [place] [address] Creatinine [Mass/Vol] 1.02 mg/dL Normal 0.70-1.20 [facility] Comment on above: Result Comment: METH OD TRACEABLE TO IDMS STANDARD Performed By: #### P INR, 04931-7, 97263-2, CBCA, 00015-9, CMP, 4548-4, 6873-4 #### [facility] ([id number]) [address] [place] [address] #### HA1C #### [facility] ([id number]) [address], [address] [address] GFR/1.73 sq M.predicted among non-blacks MDRD (S/P/Bld) [Vol rate/Area] 79 mL/min/{1.73_m2} Normal >59 [facility] Comment on above: Result Comment: Reported eGFR is based on the CKD-EPI 2020 equation that does not use a race coefficient. Performed By: #### P INR, 85528-3, 09922-9, CBCA, 76806-4, CMP, 4548-4, 6873-4 #### [facility] ([id number]) [address] [place] [address] #### HA1C #### [facility] ([id number]) [address], [address] [place] [address] Glucose [Mass/Vol] 195 mg/dL High 65-99 [facility] Comment on above: Performed By: #### P INR, 37859-1, 65002-8, CBCA, 53816-4, CMP, 4548-4, 6873-4 #### [facility] ([id number]) [address] [place] [address] #### HA1C #### [facility] ([id number]) [address] [place] [address] Potassium [Moles/Vol] 4.1 mmol/L Normal 3.5-5.0 [facility] Comment on above: Performed By: #### P INR, 62809-0, 36627-4, CBCA, 58008-0, CMP, 4548-4, 6873-4 #### [facility] ([id number]) [address] [place] [address] #### HA1C #### [facility] ([id number]) [address] [place] [address] Protein [Mass/Vol] 6.1 g/dL Normal 6.0-8.0 [facility] Comment on above: Performed By: #### P INR, 40210-3, 28770-9, CBCA, 11794-3, CMP, 4548-4, 6873-4 #### [facility] ([id number]) [address] [place] [address] #### HA1C #### [facility] ([id number]) [address] [place] [address] Sodium [Moles/Vol] 137 mmol/L Normal 134-146 [facility] Comment on above: Performed By: #### P INR, 85650-9, 77451-9, CBCA, 65083-5, CMP, 4548-4, 6873-4 #### [facility] ([id number]) [address] [place] [address] #### HA1C #### [facility] ([id number]) [address], [address] [place] [address] Urea nitrogen [Mass/Vol] 86 mg/dL High 5-27 [facility] Comment on above: Performed By: #### P INR, 74774-4, 94489-5, CBCA, 82121-2, CMP, 4548-4, 6873-4 #### [facility] ([id number]) [address] [place] [address] #### HA1C #### [facility] ([id number]) [address], [address] [place] [address] CT BRAIN WO CONTon CT BRAIN WO CONT CT BRAIN WO CONT CLINICAL INFORMATION: Neuro deficit, acute, stroke suspected; right mca syndrome TECHNIQUE: CT BRAIN WO CONT CT images of the brain were obtained. There is no acute intracranial hemorrhage. Chronic ischemic changes noted including right MCA infarct and encephalomalacia. No obvious acute cortical infarct. No sulcal effacement. Basilar cisterns are patent. IMPRESSION: Chronic small vessel ischemic changes and nonacute right MCA distribution infarct. All CT scans at this facility use dose modulation, iterative reconstruction, and/or weight based dosing when appropriate to reduce radiation dose to as low as reasonably achievable. Finalized by Rodney Jaramillo MD on 04/10/2024 2:20 PM Normal [facility] CT CTA CAROTIDon 04-10-[address] CTA CAROTID STUDY: CT angiogram carotid artery with contrast CLINICAL HISTORY: CVA, TIA, Stroke acute neurologic deficit. Stroke. CVA. TIA. COMPARISON: 04/09/2024 TECHNIQUE: CT angiogram performed following intravenous administration of 100 mL Omnipaque 350 nonionic intravenous contrast. Coronal and sagittal and 3-D volume rendered maximum intensity projection images generated and reviewed under concurrent physician supervision. Automated exposure control utilized. The [place] Symptomatic Carotid Endarterectomy Trial (NASCET) method for calculating the degree of stenosis was utilized for stenosis measurements. FINDINGS: Atherosclerotic changes of the thoracic aorta. Three-vessel aortic arch. Mild plaque and mild stenosis in the bilateral proximal internal carotid arteries. Prominent carotid pharyngeal loops. Both internal carotid arteries are patent. Both vertebral arteries are patent throughout their cervical course. Dependent changes and atelectasis in both lungs. Multilevel degenerative changes of the cervical spine. No prevertebral soft tissue swelling. No vertebral body height loss. No cervical lymph node enlargement. IMPRESSION: 1. No significant interval change. No large vessel vascular occlusion or hemodynamically significant stenosis. All CT scans at this facility use dose modulation, iterative reconstruction, and/or weight based dosing when appropriate to reduce radiation dose to as low as reasonably achievable. Finalized by Ricardo Beatty MD on 04/10/2024 3:14 PM Normal [facility] CT CTA HEADon 04-10-[address]A HEAD CT angiogram head with contrast History: Stroke, CVA, TIA, acute neurologic deficits Technique: CT angiogram of the head was performed following intravenous administration of 100 cc Omnipaque 350 nonionic intravenous contrast. 3-D maximum intensity projection images generated and reviewed under concurrent physician supervision. Automated exposure control was utilized. Arterial blood flow was measured to assist the stroke clinical team in the diagnosis of large vessel occlusion in patients undergoing screening for acute ischemic stroke using Rapid AI software when clinically indicated. Findings: The visualized extracranial internal carotid arteries are patent. The petrosal, cavernous and supraclinoid internal carotid patent. Bilateral chronic calcifications are seen. Left middle cerebral artery is patent. Anterior cerebral arteries are patent. There is occlusion of the right M1 middle cerebral artery with some reconstitution of the right M2 and M3 middle cerebral artery branches. There is a possible occlusion of a smaller right M2 middle cerebral artery branch on image #173 through 178. The vertebral arteries are patent and first cuneiform a normal-appearing basilar artery. The posterior cerebral arteries appear to be patent. Symmetric opacification of the dural venous sinuses. Right deep cerebellar hemisphere encephalomalacia. 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 There appears to possible new occlusion of a right M2 middle cerebral artery branch anterior branch. All CT scans at this facility use dose modulation, iterative reconstruction, and/or weight based dosing when appropriate to reduce radiation dose to as low as reasonably achievable. Finalized by Ricardo Beatty MD on 04/10/2024 2:51 PM Normal [facility] Glucose Glucometer (BldC) [M ass/Vol]on 04-10-2024 Glucose [Mass/Vol] 188 mg/dL High 65-99 [facility] Glucose [Mass/Vol] 233 mg/dL High 65-99 [facility] Glucose [Mass/Vol] 232 mg/dL High 65-99 [facility] Glucose [Mass/Vol] 232 mg/dL High 65-99 [facility] Glucose [Mass/Vol] 205 mg/dL High 65-99 [facility] MAGNESIUMon 04-10-2024 Magnesium [Mass/Vol] 2.3 mg/dL Normal 1.8-2.6 [facility] Comment on above: Performed By: #### P INR, 01580-8, 57757-4, CBCA, 26149-6, CMP, 4548-4, 6873-4 #### [facility] ([id number]) [address] [place] [address] #### HA1C #### [facility] ([id number]) [address], [address] [place] [address] PHOSPHORUSon 04-10-2024 Phosphate [Mass/Vol] 4.2 mg/dL Normal 2.4-4.9 [facility] Comment on above: Performed By: #### P INR, 16321-4, 50332-2, CBCA, 42350-3, CMP, 4548-4, 6873-4 #### [facility] ([id number]) [address] [place] [address] #### HA1C #### [facility] ([id number]) [address], [address] [place] [address] URINALYSISon 04-10-2024 Bilirubin Ql (U) Negative Normal NEG [facility] Comment on above: Performed By: #### U A #### [facility] ([id number]) [facility], [address] [place] [address] BLOOD/HGB Negative Normal NEG [facility] Comment on above: Performed By: #### U A #### [facility] ([id number]) [address] [place] [address], [address] [place] [address] Color (U) YELLOW Normal YELLOW [facility] Comment on above: Performed By: #### U A #### [facility] ([id number]) [facility], [address] [place] [address] Glucose Ql (U) Negative Normal NEG [facility] Comment on above: Performed By: #### U A #### [facility] ([id number]) [address] [place] [address], [address] [place] [address] Ketones Ql (U) Negative Normal NEG [facility] Comment on above: Performed By: #### U A #### [facility] ([id number]) [address] [place] [address], [address] [place] [address] Leukocyte esterase Test strip Ql (U) Negative Normal NEG [facility] Comment on above: Performed By: #### U A #### [facility] ([id number]) [address] [place] [address], [address] [place] [address] Nitrite Ql (U) Negative Normal NEG [facility] Comment on above: Performed By: #### U A #### [facility] ([id number]) [facility], [address] [place] [address] pH (U) 5.5 [pH] Normal 5.0-8.5 [facility] Comment on above: Performed By: #### U A #### [facility] ([id number]) [address] [place] [address], [address] [place] [address] Protein Ql (U) Negative Normal NEG [facility] Comment on above: Performed By: #### U A #### [facility] ([id number]) [address] [address] Specific gravity (U) [Rel density] 1.039 High 1.003-1.035 [facility] Comment on above: Performed By: #### U A #### [facility] ([id number]) [address] [address] TURBIDITY CLEAR Normal CLEAR [facility] Comment on above: Performed By: #### U A #### [facility] ([id number]) [address] [address] Urinalysis dipstick W Reflex Microscopic panel (U) URINE RECEIVED WITHOUT PRESERVATIVE-DELAYS IN TRANSPORT MAY AFFECT RESULTS.INTERPRET WITH CAUTION AND CLINICAL CORRELATION IS RECOMMENDED. Normal [facility] Comment on above: Performed By: #### U A #### [facility] ([id number]) [address] [address] Urobilinogen (U) [Mass/Vol] mg/dL Normal <1.1 [facility] Comment on above: Performed By: #### U A #### [facility] ([id number]) [address] [address] BASIC METABOLIC PANLon 04-09 Anion gap [Moles/Vol] 12 mmol/L Normal 5-15 [facility] Comment on above: Performed By: #### P INR, 18793-0, 67656-5, CBCA, 72825-7, CMP, 4548-4, 6873-4 #### [facility] ([id number]) [address] [place] [address], [place] [address] #### HA1C #### [facility] ([id number]) [address] [place] [address] Calcium [Mass/Vol] 8.4 mg/dL Low 8.5-10.5 [facility] Comment on above: Performed By: #### P INR, 47515-8, 18314-9, CBCA, 04050-2, CMP, 4548-4, 6873-4 #### [facility] ([id number]) [address] [place] [address] #### HA1C #### [facility] ([id number]) [address] [facility] [place] [address] Chloride [Moles/Vol] 102 mmol/L Normal 98-109 [facility] Comment on above: Performed By: #### P INR, 35480-4, 22056-9, CBCA, 55453-1, CMP, 4548-4, 6873-4 #### [facility] ([id number]) [address] [place] [address] #### HA1C #### [facility] ([id number]) [address] [facility], [address] [place] [address] CO2 [Moles/Vol] 17 mmol/L Low 22-32 [facility] Comment on above: Performed By: #### P INR, 52827-7, 82668-5, CBCA, 59755-1, CMP, 4548-4, 6873-4 #### [facility] ([id number]) [address] [place] [address] #### HA1C #### [facility] ([id number]) [address] [facility] [facility] [place] [address] Creatinine [Mass/Vol] 1.49 mg/dL High 0.70-1.20 [facility] Comment on above: Result Comment: METH OD TRACEABLE TO IDMS STANDARD Performed By: #### P INR, 66343-0, 49450-6, CBCA, 49816-8, CMP, 4548-4, 6873-4 #### [facility] ([id number]) [address] [place] [address] #### HA1C #### [facility] ([id number]) [address], [address] [place] [address] GFR/1.73 sq M.predicted among non-blacks MDRD (S/P/Bld) [Vol rate/Area] 50 mL/min/{1.73_m2} Low >59 [facility] Comment on above: Result Comment: Reported eGFR is based on the CKD-EPI 2020 equation that does not use a race coefficient. Performed By: #### P INR, 38904-7, 01471-7, CBCA, 56764-0, CMP, 4548-4, 6873-4 #### [facility] ([id number]) [address] [place] [address] #### HA1C #### [facility] ([id number]) [address], [address] [place] [address] Glucose [Mass/Vol] 328 mg/dL High 65-99 [facility] Comment on above: Performed By: #### P INR, 74711-8, 66202-1, CBCA, 90968-2, CMP, 4548-4, 6873-4 #### [facility] ([id number]) [address] [place] [address] #### HA1C #### [facility] ([id number]) [address], [address] [place] [address] Potassium [Moles/Vol] 4.7 mmol/L Normal 3.5-5.0 [facility] Comment on above: Performed By: #### P INR, 06887-6, 76585-6, CBCA, 58266-2, CMP, 4548-4, 6873-4 #### [facility] ([id number]) [address] [place] [address] #### HA1C #### [facility] ([id number]) [address], [address] [place] [address] Sodium [Moles/Vol] 131 mmol/L Low 134-146 [facility] Comment on above: Performed By: #### P INR, 37789-3, 29326-4, CBCA, 85100-0, CMP, 4548-4, 6873-4 #### [facility] ([id number]) [address] [place] [address] #### HA1C #### [facility] ([id number]) [address], [address] [place] [address] Urea nitrogen [Mass/Vol] 112 mg/dL High 5-27 [facility] Comment on above: Performed By: #### P INR, 17082-0, 42624-9, CBCA, 20176-4, CMP, 4548-4, 6873-4 #### [facility] ([id number]) [address] [place] [address] #### HA1C #### [facility] ([id number]) [address], [address] [place] [address] CBC AND AUTO DIFFon 14-20 24 ABSOLUTE BASOPHIL 0.0 X10E9/L Normal 0.0-0.2 [facility] Comment on above: Performed By: #### P INR, 42210-4, 76585-8, CBCA, 59000-2, CMP, 4548-4, 6873-4 #### [facility] ([id number]) [address] [place] [address] #### HA1C #### [facility] ([id number]) [address], [address] [place] [address] ABSOLUTE NEUTROPHIL 8.5 X10E9/L High 1.5-6.6 [facility] Comment on above: Performed By: #### P INR, 98121-7, 79725-8, CBCA, 08118-9, CMP, 4548-4, 6873-4 #### [facility] ([id number]) [address] [place] [address] #### HA1C #### [facility] ([id number]) [address], [address] [place] [address] Basophils/100 WBC (Bld) 0.4 % Normal [facility] Comment on above: Performed By: #### P INR, 49154-1, 44803-9, CBCA, 90237-9, CMP, 4548-4, 6873-4 #### [facility] ([id number]) [address] [place] [address] #### HA1C #### [facility] ([id number]) [address] [place] [address] Eosinophils (Bld) [#/Vol] 0.0 10*3/uL Normal 0.0-0.4 [facility] Comment on above: Performed By: #### P INR, 90248-4, 04793-4, CBCA, 76889-1, CMP, 4548-4, 6873-4 #### [facility] ([id number]) [address] [place] [address] #### HA1C #### [facility] ([id number]) [address], [address] [place] [address] Eosinophils/100 WBC (Bld) 0.1 % Normal [facility] Comment on above: Performed By: #### P INR, 06602-1, 23338-1, CBCA, 08099-5, CMP, 4548-4, 6873-4 #### [facility] ([id number]) [address] [place] [address] #### HA1C #### [facility] ([id number]) [address], [address] [place] [address] Erythrocyte distribution width (RBC) [Ratio] 13.9 % Normal 11.5-15.0 [facility] Comment on above: Performed By: #### P INR, 65464-1, 32111-3, CBCA, 97560-1, CMP, 4548-4, 6873-4 #### [facility] ([id number]) [address] [place] [address] #### HA1C #### [facility] ([id number]) [address], [address] [place] [address] Hematocrit (Bld) [Volume fraction] 28.3 % Low 39-49 [facility] Comment on above: Performed By: #### P INR, 94128-5, 42256-4, CBCA, 49675-9, CMP, 4548-4, 6873-4 #### [facility] ([id number]) [address] [place] [address] #### HA1C #### [facility] ([id number]) [address], [address] [place] [address] Hemoglobin (Bld) [Mass/Vol] 9.8 g/dL Low 13.0-17.0 [facility] Comment on above: Performed By: #### P INR, 61339-9, 95662-3, CBCA, 66718-2, CMP, 4548-4, 6873-4 #### [facility] ([id number]) [address] [place] [address] #### HA1C #### [facility] ([id number]) [address], [address] [place] [address] Lymphocytes (Bld) [#/Vol] 0.9 10*3/uL Low 1.0-3.5 [facility] Comment on above: Performed By: #### P INR, 16070-3, 04661-3, CBCA, 25934-8, CMP, 4548-4, 6873-4 #### [facility] ([id number]) [address] [place] [address] #### HA1C #### [facility] ([id number]) [address], [address] [place] [address] Lymphocytes/100 WBC (Bld) 9.0 % Normal [facility] Comment on above: Performed By: #### P INR, 36478-3, 42934-1, CBCA, 82496-0, CMP, 4548-4, 6873-4 #### [facility] ([id number]) [address] [place] [address] #### HA1C #### [facility] ([id number]) [address] [facility] [place] [address] MCH (RBC) [Entitic mass] 30.9 pg Normal 27-34 [facility] Comment on above: Performed By: #### P INR, 50095-2, 57778-7, CBCA, 10956-6, CMP, 4548-4, 6873-4 #### [facility] ([id number]) [address] [place] [address] #### HA1C #### [facility] ([id number]) [address], [address] [place] [address] MCHC (RBC) [Mass/Vol] 34.6 g/dL Normal 32-36 [facility] Comment on above: Performed By: #### P INR, 84605-0, 43048-4, CBCA, 84640-0, CMP, 4548-4, 6873-4 #### [facility] ([id number]) [address] [place] [address] #### HA1C #### [facility] ([id number]) [address], [address] [place] [address] MCV (RBC) [Entitic vol] 89 fL Normal 80-100 [facility] Comment on above: Performed By: #### P INR, 63692-4, 99541-9, CBCA, 59739-0, CMP, 4548-4, 6873-4 #### [facility] ([id number]) [address] [place] [address] #### HA1C #### [facility] ([id number]) [address], [address] [place] [address] Monocytes (Bld) [#/Vol] 0.3 10*3/uL Normal 0-0.9 [facility] Comment on above: Performed By: #### P INR, 21299-3, 78729-6, CBCA, 39847-7, CMP, 4548-4, 6873-4 #### [facility] ([id number]) [address] [place] [address] #### HA1C #### [facility] ([id number]) [address], [address] [place] [address] Monocytes/100 WBC (Bld) 3.2 % Normal [facility] Comment on above: Performed By: #### P INR, 13165-6, 32541-2, CBCA, 88312-1, CMP, 4548-4, 6873-4 #### [facility] ([id number]) [address] [place] [address] #### HA1C #### [facility] ([id number]) [address], [address] [place] [address] Neutrophils/100 WBC (Bld) 87.3 % Normal [facility] Comment on above: Performed By: #### P INR, 90861-3, 01566-0, CBCA, 65716-5, CMP, 4548-4, 6873-4 #### [facility] ([id number]) [address] [place] [address] #### HA1C #### [facility] ([id number]) [address], [address] [place] [address] Platelet mean volume (Bld) [Entitic vol] 8.1 fL Normal 7-12 [facility] Comment on above: Performed By: #### P INR, 87412-5, 11112-2, CBCA, 31770-8, CMP, 4548-4, 6873-4 #### [facility] ([id number]) [address] [place] [address] #### HA1C #### [facility] ([id number]) [address], [address] [place] [address] Platelets (Bld) [#/Vol] 330 10*3/uL Normal 150-450 [facility] Comment on above: Performed By: #### P INR, 79104-1, 19925-8, CBCA, 54108-9, CMP, 4548-4, 6873-4 #### [facility] ([id number]) [address] [place] [address] #### HA1C #### [facility] ([id number]) [address], [address] [place] [address] RBC COUNT 3.16 X10E12/L Low 4.10-5.70 [facility] Comment on above: Performed By: #### P INR, 08607-2, 25177-5, CBCA, 00146-7, CMP, 4548-4, 6873-4 #### [facility] ([id number]) [address] [place] [address] #### HA1C #### [facility] ([id number]) [address] [place] [address] WBC (Bld) [#/Vol] 9.7 10*3/uL Normal 4.0-11.0 [facility] Comment on above: Performed By: #### P INR, 83738-3, 85466-7, CBCA, 31486-2, CMP, 4548-4, 6873-4 #### [facility] ([id number]) [address] [facility], [place] [address] #### HA1C #### [facility] ([id number]) [address] [facility] [place] [address] CT BRAIN WO CONT STROKE ALER Ton 04-09-2024 CT BRAIN WO CONT STROKE ALERT CT BRAIN WO CONT STROKE ALERT CT HEAD WITHOUT IV CONTRAST CLINICAL STATEMENT: Stroke, follow up; assessment of stroke/hemorrhage: Comparison study: TECHNIQUE: Axial views were obtained at 2.5 mm interval through the head without IV contrast. Automatic dose exposure reduction technique utilized. FINDINGS: The midline structures are not deviated. The ventricular system is prominent in keeping with atrophy. The das and white matter show right-sided periventricular changes that likely reflects old white matter infarct. The posterior fossa is unremarkable. No features of raised intracranial pressure.No intracranial bleed. The IACs are unremarkable. The cerebellopontine angles are unremarkable. The temporomandibular joints show no abnormality. The osseous structures in the skull base and in the calvarium show no definite abnormality. The orbits are normal. The paranasal sinuses are clear. The mastoid air cells are clear. IMPRESSION: No acute ischemia or infarction. 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 All CT scans at this facility use dose modulation, iterative reconstruction, and/or weight based dosing when appropriate to reduce radiation dose to as low as reasonably achievable. Finalized by Rmay Clay MD on 04/09/2024 8:10 AM Normal [facility] CT CTA CAROTIDon 04-09-[address] CTA CAROTID History: Weakness in left side of face and left upper and lower limbs Acute neurological disorder. Acute stroke/TIA Exam/Technique: Bolus arterial phase IV contrast. 3-D and multiplanar reconstructions are provided for CTA of the neck. Volume rendered 3 -D Maximum intensity projection reconstructions constructed under concurrent physician supervision on an independent workstation and reviewed for purposes of evaluation of the cervical arterial vasculature. Carotid artery narrowing is assessed using the [place] Symptomatic Carotid Endarterectomy Trial (NASCET) method. Comparison: Findings: Conventional anatomy is demonstrated for the origins of the great vessels from the arch. Mild to moderate calcific plaquing in the aortic arch. No stenoses or other significant abnormalities of the proximal great vessels are displayed. Calcific plaquing of left carotid bifurcation and minimal minimally on the right. There is no evidence of common or internal carotid artery stenosis at any level, on either side. Vertebral arteries are intact throughout the neck bilaterally, without any evidence of focal stenoses. No evidence of dissection of any of the cervical vessels and no other arterial abnormalities are depicted. There is degenerative change in the cervical spine without evidence of gross spinal stenosis IMPRESSION: No significant arterial stenoses displayed in All CT scans at this facility use dose modulation, iterative reconstruction, and/or weight based dosing when appropriate to reduce radiation dose to as low as reasonably achievable. Finalized by Kenneth Rothman MD on 04/09/2024 8:34 AM [facility] CT CTA HEADon 04-09-[address] CTA HEAD CLINICAL INFORMATION: stroke symptoms unsteady gait and left-sided weakness TECHNIQUE: CT angiogram of the head was performed following intravenous administration of nonionic intravenous contrast. 3-D maximum intensity projection images generated and reviewed under concurrent physician supervision. Automated exposure control was utilized. Arterial blood flow was measured to assist the stroke clinical team in the diagnosis of large vessel occlusion in patients undergoing screening for acute ischemic stroke using Rapid AI software when clinically indicated. All CT scans at this facility use dose modulation, iterative reconstruction, and/or weight based dosing when appropriate to reduce radiation dose to as low as reasonably achievable. COMPARISON: CT head 10/28/2023 FINDINGS: Abnormal exam with interval development of long segment narrowing with near complete occlusion at the mid M1 segment and anterior division of the M2 segment of the right middle cerebral artery. Otherwise the intracranial segments of the right internal carotid artery is widely patent with mild intimal calcification at the cavernous segments of no hemodynamic significance. Right anterior cerebral artery is widely patent and grossly unremarkable. The intracranial segment of left internal carotid artery is widely patent with heavy vascular calcification of the cavernous segment of no hemodynamic significance. Left anterior middle cerebral arteries are widely patent. Vertebral arteries are patent distally. Basilar artery is of adequate course and caliber. There is uniform small caliber at the P1 segment of the left posterior cerebral artery grossly stable compared to prior exam. The remaining posterior cerebral arteries are widely patent. The draining dural sinuses are grossly patent. IMPRESSION: * Abnormal exam with interval development of long segment narrowing with near complete occlusion at the mid M1 segment of the right middle cerebral artery. Similar changes are present at the anterior division of the M2 segment. * THIS REPORT CONTAINS A SIGNIFICANT RESULT AND/OR RECOMMENDATION, WHICH REQUIRES THE ATTENTION OF THE LICENSED CAREGIVER RESPONSIBLE FOR THIS PATIENT. THEREFORE, I SPECIFICALLY DESIGNATED THIS REPORT TO BE TELEPHONED BY THE RADIOLOGY DEPARTMENT Finalized by Bonnie Thomson MD on 04/09/2024 8:39 AM Normal [facility] Glucose Glucometer (BldC) [M ass/Vol]on 04-09-2024 Glucose [Mass/Vol] 190 mg/dL High 65-99 [facility] Glucose [Mass/Vol] 222 mg/dL High 65-99 [facility] Glucose [Mass/Vol] 258 mg/dL High 65-99 [facility] HGB A1C (GLYCO-HGB)on 2023 Glucose [Mass/Vol] 169 mg/dL Normal [facility] Comment on above: Performed By: #### P INR, 33492-6, 90654-5, CBCA, 54028-1, CMP, 4548-4, 6873-4 #### [facility] ([id number]) [address] [facility], [place] [address] #### HA1C #### [facility] ([id number]) [address] [place] [address], [address] [place] [address] HbA1c (Bld) [Mass fraction] 7.5 % High 4.4-5.6 [facility] [facility] Comment on above: Result Comment: NOTE ADA Guidelines Result HgbA1c Normal : less than 5.7 % Prediabetes : 5.7 % to 6.4 % Diabetes : > 6.4 % Use with caution in patients with abnormal hemoglobin variants as the half-life of red blood cells and in vivo glycation rates are affected. Performed By: #### P INR, 28554-2, 43517-4, CBCA, 34982-2, CMP, 4548-4, 6873-4 #### [facility] ([id number]) [address] [place] [address] #### HA1C #### [facility] ([id number]) [address] [facility], [address] [place] [address] Lipid 1996 panelon 4 Cholesterol [Mass/Vol] 142 mg/dL Low 150-[address] [facility] Comment on above: Performed By: #### P INR, 60687-4, 23671-4, CBCA, 28924-5, CMP, 4548-4, 6873-4 #### [facility] ([id number]) [address] [place] [address] #### HA1C #### [facility] ([id number]) [address], [address] [place] [address] Cholesterol in HDL [Mass/Vol] 27 mg/dL Low >39 [facility] Comment on above: Result Comment: HDL <40 mg/dL - High Risk HDL > or = 40mg/dL- Desirable HDL >60 mg/dL - Negative Risk Performed By: #### P INR, 96163-3, 16198-0, CBCA, 85182-1, CMP, 4548-4, 6873-4 #### [facility] ([id number]) [address] [place] [address] #### HA1C #### [facility] ([id number]) [address] [facility] [facility], [address] [place] [address] Cholesterol in LDL [Mass/Vol] 76 mg/dL Normal <130 [facility] Comment on above: Result Comment: LDL <100 mg/dL - Desirable LDL >160 mg/dL - High Risk Performed By: #### P INR, 94386-7, 41780-0, CBCA, 03066-6, CMP, 4548-4, 6873-4 #### [facility] ([id number]) [address] [place] [address] #### HA1C #### [facility] ([id number]) [address] [facility], [address] [place] [address] Cholesterol in VLDL [Mass/Vol] 39 mg/dL High 0-30 [facility] Comment on above: Performed By: #### P INR, 53337-3, 73290-3, CBCA, 88706-9, CMP, 4548-4, 6873-4 #### [facility] ([id number]) [address] [place] [address] #### HA1C #### [facility] ([id number]) [address] [place] [address], [address] [place] [address] CHOLESTEROL:HDL 5.3 High 1.0-5.0 [facility] Comment on above: Performed By: #### P INR, 66097-6, 80561-4, CBCA, 68285-1, CMP, 4548-4, 6873-4 #### [facility] ([id number]) [address] [place] [address] #### HA1C #### [facility] ([id number]) [address], [address] [place] [address] Triglyceride [Mass/Vol] 196 mg/dL High 27-150 [facility] Comment on above: Performed By: #### P INR, 26969-8, 50218-3, CBCA, 82617-2, CMP, 4548-4, 6873-4 #### [facility] ([id number]) [address] [place] [address], [place] [address] #### HA1C #### [facility] ([id number]) [address], [address] [place] [address] MR BRAIN WO CONTon 4 MR BRAIN WO CONT MR BRAIN WO CONT STUDY: MR BRAIN WO CONT INDICATION: Stroke sx, M1 and M2 stenosis right sided. TECHNIQUE: * Routine multiplanar multisequence MR imaging of the brain was performed without intravenous contrast. FINDINGS: Sequela of subacute infarct in the right centrum semiovale. Punctate foci of acute or early subacute ischemia in the right sagittal stratum, right periatrial white matter, and right hippocampal/amygdala junction. No large volume hemorrhagic transformation, mass effect or midline shift. Mild prominence of ventricular system which may reflect central greater than peripheral volume loss. Bilateral hippocampal atrophy, [id number] in severity. Few scattered foci of T2/FLAIR hyperintensity in the deep white matter is nonspecific for age and not disproportionate, though may reflect very mild chronic microvascular ischemic changes. Tiny focus of T2/FLAIR hyperintensity in the right cerebral peduncle which may reflect early wallerian degeneration. Globes and orbits are unremarkable accounting for bilateral lens replacement. Paranasal sinuses and mastoid air cells are clear. Prominent CSF of the bilateral Meckel's caves without secondary signs of idiopathic intracranial hypertension. IMPRESSION: * Scattered foci of late acute/early subacute and more subacute foci of right MCA territory infarcts as described. No significant hemorrhagic transformation. Early right-sided wallerian degeneration is suspected. * Mild prominence of the ventricular system which may suggest central greater than peripheral volume loss. THIS REPORT CONTAINS A SIGNIFICANT RESULT AND/OR RECOMMENDATION, WHICH REQUIRES THE ATTENTION OF THE LICENSED CAREGIVER RESPONSIBLE FOR THIS PATIENT. THEREFORE, I SPECIFICALLY DESIGNATED THIS REPORT TO BE TELEPHONED BY THE RADIOLOGY DEPARTMENT. FINDINGS WERE INSTRUCTED TO BE CALLED TO THE CLINICAL SERVICE ON 04/09/2024 9:54 AM Finalized by Emmanuel Pastrana on 04/09/2024 9:55 AM Normal [facility] PHOSPHORUSon 04-09-2024 Phosphate [Mass/Vol] 4.5 mg/dL Normal 2.4-4.9 [facility] Comment on above: Performed By: #### P INR, 11970-5, 88293-6, CBCA, 89179-0, CMP, 4548-4, 6873-4 #### [facility] ([id number]) [address] [place] [address] #### HA1C #### [facility] ([id number]) [address], [address] [place] [address] PROTIME AND INRon 04-09-2024 INR Coag (PPP) [Relative time] 1.2 {INR} High 0.8-1.1 [facility] Comment on above: Performed By: #### P INR, 07365-4, 31439-6, CBCA, 70706-4, CMP, 4548-4, 6873-4 #### [facility] ([id number]) [address] [place] [address] #### HA1C #### [facility] ([id number]) [address], [address] [place] [address] PT Coag (PPP) [Time] 14.0 s High 9.8-13.2 [facility] Comment on above: Result Comment: NEW REFERENCE RANGE Performed By: #### P INR, 67850-1, 74708-2, CBCA, 31866-8, CMP, 4548-4, 6873-4 #### [facility] ([id number]) [address] [place] [address] #### HA1C #### [facility] ([id number]) [address] [place] [address], [address] [place] [address] Troponin I.cardiac High sens itivity method [Mass/Vol]on 04-09-2024 3 HOUR TROP I, HIGH SENSITIVITY 113 ng/L High <21 [facility] Comment on above: Result Comment: Elevations of hs-Troponin may be due to causes other than myocardial ischemia. Recommend serial hs-Troponin testing be performed. For the initial evaluation and management of chest pain patients, refer to the algorithms linked below. Emergency Patient: [email or web address] Inpatient: [email or web address] &[email or web address] Performed By: #### P INR, 96757-1, 77118-6, CBCA, 20642-0, CMP, 4548-4, 6873-4 #### [facility] ([id number]) [address] [place] [address], [place] [address] #### HA1C #### [facility] ([id number]) [address] [place] [address], [address] [place] [address] 1 HOUR TROP I, HIGH SENSITIVITY 60 ng/L High <21 [facility] Comment on above: Result Comment: Elevations of hs-Troponin may be due to causes other than myocardial ischemia. Recommend serial hs-Troponin testing be performed. For the initial evaluation and management of chest pain patients, refer to the algorithms linked below. Emergency Patient: [email or web address] Inpatient: [email or web address] &[email or web address] Performed By: #### P INR, 38758-2, 17026-1, CBCA, 40835-5, CMP, 4548-4, 6873-4 #### [facility] ([id number]) [address] [place] [address] #### HA1C #### [facility] ([id number]) [address] [facility], [address] [place] [address] TROPONIN I, HIGH SENSITIVITY 38 ng/L High <21 [facility] Comment on above: Result Comment: Elevations of hs-Troponin may be due to causes other than myocardial ischemia. Recommend serial hs-Troponin testing be performed. For the initial evaluation and management of chest pain patients, refer to the algorithms linked below. Emergency Patient: [email or web address] &[email or web address] Inpatient: [email or web address] &[email or web address] Performed By: #### P INR, 70736-7, 16327-3, CBCA, 84025-4, CMP, 4548-4, 6873-4 #### [facility] ([id number]) [address] [place] [address] #### HA1C #### [facility] ([id number]) [address] [facility], [address] [place] [address] XR ANKLE LT MIN 3 VWSon 03-27 XR ANKLE LT MIN 3 VWS XR ANKLE LT MIN 3 VWS History: Fall with left ankle bruising Exam/Technique: AP, oblique, and lateral views of the left ankle Comparison: None Findings: Prominent spurring at the anterior margin of the distal tibia There is no evidence of fractures of any age and no other focal bony abnormalities. The ankle mortise is intact and normally aligned probable mild soft tissue swelling laterally IMPRESSION: No acute bony abnormalities demonstrated. Finalized by Kenneth Rothman MD on 04/09/2024 9:32 AM Normal [facility] XR KNEE LT 3 VWSon 4 XR KNEE LT 3 VWS XR KNEE LT 3 VWS Left Knee: 04/09/2024 9:08 AM. Reason for study: Fall, bruising to left knee. Comparison studies: Knee radiograph from 06/04/2010. Technique: AP, oblique, and lateral views of left knee were obtained. Findings: Knee arthroplasty is again noted which appears appropriately aligned. Associated left knee degenerative change again seen. Moderate atheromatous calcifications. Limited evaluation for small knee joint effusion due to the degree of flexion on the lateral. No acute fracture or dislocation. Infrapatellar soft tissue thickening. Impression: No acute fracture or dislocation with similar alignment of the knee arthroplasty. Finalized by Angela Keyes MD on 04/09/2024 9:29 AM Normal [facility] XR PELVIS 1 OR 2 VWSon 04-09 XR PELVIS 1 OR 2 VWS XR PELVIS 1 OR 2 VW S History: Fall with left-sided pain Exam/Technique: Single AP projection of the pelvis. Comparison: None Findings: No fractures or other focal bony lesions are displayed in pelvic bones. On this single projection the hip joints appear intact and normally aligned. Contrast fills the urinary bladder from the preceding CTAs. This largely obscures the sacrum. IMPRESSION: Negative for recent fracture. Finalized by Kenneth Rothman MD on 04/09/2024 9:37 AM Normal [facility] XR WRIST RT MIN 3 VWSon 03-27 XR WRIST RT MIN 3 VWS XR WRIST RT MIN 3 VWS History: Bruising. Recent fall Exam/Technique: PA, oblique, and lateral views of the right wrist. Comparison: None Findings: There is no evidence of recent fracture or dislocation. Old posttraumatic and postsurgical changes in the scaphoid with anchor present within the bone. Prominent degenerative change at the distal radial ulnar joint, radiocarpal joints, and first carpometacarpal joint IMPRESSION: No acute bony abnormalities demonstrated Finalized by Kenneth Rothman MD on 04/09/2024 9:40 AM Normal [facility] aPTT Coag (PPP) [Time]on aPTT Coag (Bld) [Time] 24 s Low 26-[address] [facility] Comment on above: Result Comment: NEW REFERENCE RANGE Performed By: #### P INR, 43705-1, 97043-5, CBCA, 91583-6, CMP, 4548-4, 6873-4 #### [facility] ([id number]) [address] [place] [address] #### HA1C #### [facility] ([id number]) [address] [facility], [address] [place] [address] XR Knee - right 4 Viewson Findings: [...] space and varus deformity. MANUALLY TRANSCRIBED RESULTS [facility] compareit4me [facility] Radiology Study observation (narrative) [facility] compareit4me [facility] BASIC METABOLIC PANLon 11-05 Anion gap [Moles/Vol] 11 mmol/L Normal 5-15 [facility] Comment on above: Performed By: #### P INR, 92565-0, 10555-8, CBCA, 11165-0, CMP, 4548-4, 6873-4 #### [facility] ([id number]) [address] [place] [address] 9[address] #### HA1C #### [facility] ([id number]) [address] [facility], [address] [place] [address] Calcium [Mass/Vol] 8.8 mg/dL Normal 8.5-10.5 [facility] Comment on above: Performed By: #### P INR, 78961-4, 52226-0, CBCA, 48019-2, CMP, 4548-4, 6873-4 #### [facility] ([id number]) [address] [place] [address] #### HA1C #### [facility] ([id number]) [address], [address] [place] [address] Chloride [Moles/Vol] 96 mmol/L Low 98-109 [facility] Comment on above: Performed By: #### P INR, 72671-5, 37247-5, CBCA, 58772-9, CMP, 4548-4, 6873-4 #### [facility] ([id number]) [address] [place] [address] #### HA1C #### [facility] ([id number]) [address], [address] [place] [address] CO2 [Moles/Vol] 24 mmol/L Normal 22-32 [facility] Comment on above: Performed By: #### P INR, 12511-7, 39154-8, CBCA, 23461-5, CMP, 4548-4, 6873-4 #### [facility] ([id number]) [address] [place] [address] #### HA1C #### [facility] ([id number]) [address], [address] [place] [address] Creatinine [Mass/Vol] 0.75 mg/dL Normal 0.70-1.20 [facility] Comment on above: Result Comment: METH OD TRACEABLE TO IDMS STANDARD Performed By: #### P INR, 22266-3, 05979-5, CBCA, 27708-3, CMP, 4548-4, 6873-4 #### [facility] ([id number]) [address] [place] [address] #### HA1C #### [facility] ([id number]) [address], [address] [place] [address] eGFR (CKD-EPI) NON-RACE DEPENDENT >90 Normal >59 [facility] Comment on above: Result Comment: Reported eGFR is based on the CKD-EPI 2020 equation that does not use a race coefficient. Performed By: #### P INR, 74356-0, 34550-0, CBCA, 09842-4, CMP, 4548-4, 6873-4 #### [facility] ([id number]) [address] [place] [address]86 #### HA1C #### [facility] ([id number]) [address], [address] [place] [address] Glucose [Mass/Vol] 263 mg/dL High 65-99 [facility] Comment on above: Performed By: #### P INR, 75157-1, 29350-0, CBCA, 82163-9, CMP, 4548-4, 6873-4 #### [facility] ([id number]) [address] [place] [address]220 #### HA1C #### [facility] ([id number]) [address], [address] [place] [address] Potassium [Moles/Vol] 4.2 mmol/L Normal 3.5-5.0 [facility] Comment on above: Performed By: #### P INR, 24586-7, 96613-2, CBCA, 16021-9, CMP, 4548-4, 6873-4 #### [facility] ([id number]) [address] [place] [address] #### HA1C #### [facility] ([id number]) [address], [address] [place] [address] Sodium [Moles/Vol] 131 mmol/L Low 134-146 [facility] Comment on above: Performed By: #### P INR, 10157-0, 71563-2, CBCA, 47248-7, CMP, 4548-4, 6873-4 #### [facility] ([id number]) [address] [place] [address]8052 #### HA1C #### [facility] ([id number]) [address], [address] [place] [address] Urea nitrogen [Mass/Vol] 21 mg/dL Normal 5-27 [facility] Comment on above: Performed By: #### P INR, 29985-4, 43194-0, CBCA, 25997-4, CMP, 4548-4, 6873-4 #### [facility] ([id number]) [address] [place] [address] #### HA1C #### [facility] ([id number]) [address], [address] [place] [address] CBC AND AUTO DIFFon 10-29-19 Erythrocyte distribution width (RBC) [Ratio] 13.8 % Normal 11.5-15.0 [facility] Comment on above: Performed By: #### P INR, 33452-3, 97463-2, CBCA, 14405-5, CMP, 4548-4, 6873-4 #### [facility] ([id number]) [address] [place] [address] #### HA1C #### [facility] ([id number]) [address], [address] [place] [address] Hematocrit (Bld) [Volume fraction] 46.7 % Normal 39-49 [facility] Comment on above: Performed By: #### P INR, 68096-7, 39180-1, CBCA, 45706-6, CMP, 4548-4, 6873-4 #### [facility] ([id number]) [address] [place] [address] #### HA1C #### [facility] ([id number]) [address], [address] [place] [address] Hemoglobin (Bld) [Mass/Vol] 16.0 g/dL Normal 13.0-17.0 [facility] Comment on above: Performed By: #### P INR, 89228-0, 83452-8, CBCA, 63264-1, CMP, 4548-4, 6873-4 #### [facility] ([id number]) [address] [place] [address] #### HA1C #### [facility] ([id number]) [address] [facility], [address] [place] [address] LYMPHOCYTE, ATYPICAL 8.8 % Normal [facility] Comment on above: Performed By: #### P INR, 66906-0, 39890-6, CBCA, 63615-7, CMP, 4548-4, 6873-4 #### [facility] ([id number]) [address] [place] [address] #### HA1C #### [facility] ([id number]) [address] [facility] [place] [address] Lymphocytes (Bld) [#/Vol] 1.9 10*3/uL Normal 1.0-3.5 [facility] Comment on above: Performed By: #### P INR, 04272-0, 61936-2, CBCA, 21401-9, CMP, 4548-4, 6873-4 #### [facility] ([id number]) [address] [place] [address] #### HA1C #### [facility] ([id number]) [address], [address] [place] [address] Lymphocytes/100 WBC (Bld) 46.1 % Normal [facility] Comment on above: Performed By: #### P INR, 62915-8, 38155-4, CBCA, 74628-2, CMP, 4548-4, 6873-4 #### [facility] ([id number]) [address] [place] [address] #### HA1C #### [facility] ([id number]) [address], [address] [place] [address] MCH (RBC) [Entitic mass] 29.4 pg Normal 27-34 [facility] Comment on above: Performed By: #### P INR, 05197-1, 61581-5, CBCA, 36630-2, CMP, 4548-4, 6873-4 #### [facility] ([id number]) [address] [place] [address] #### HA1C #### [facility] ([id number]) [address] [facility] [place] [address] MCHC (RBC) [Mass/Vol] 34.2 g/dL Normal 32-36 [facility] Comment on above: Performed By: #### P INR, 14824-2, 40283-8, CBCA, 68941-4, CMP, 4548-4, 6873-4 #### [facility] ([id number]) [address] [place] [address] #### HA1C #### [facility] ([id number]) [address], [address] [place] [address] MCV (RBC) [Entitic vol] 86 fL Normal 80-100 [facility] Comment on above: Performed By: #### P INR, 79057-9, 21745-9, CBCA, 58122-8, CMP, 4548-4, 6873-4 #### [facility] ([id number]) [address] [place] [address] #### HA1C #### [facility] ([id number]) [address] [facility] [place] [address] Monocytes (Bld) [#/Vol] 0.2 10*3/uL Normal 0-0.9 [facility] Comment on above: Performed By: #### P INR, 64755-0, 34514-1, CBCA, 47576-2, CMP, 4548-4, 6873-4 #### [facility] ([id number]) [address] [place] [address] #### HA1C #### [facility] ([id number]) [address], [address] [place] [address] Monocytes/100 WBC (Bld) 4.9 % Normal [facility] Comment on above: Performed By: #### P INR, 05517-6, 15836-4, CBCA, 31141-7, CMP, 4548-4, 6873-4 #### [facility] ([id number]) [address] [place] [address] #### HA1C #### [facility] ([id number]) [address], [address] [place] [address] Neutrophils (Bld) [#/Vol] 1.4 10*3/uL Low 1.5-6.6 [facility] Comment on above: Performed By: #### P INR, 77189-5, 46958-1, CBCA, 85111-6, CMP, 4548-4, 6873-4 #### [facility] ([id number]) [address] [place] [address] #### HA1C #### [facility] ([id number]) [address], [address] [place] [address] Platelet mean volume (Bld) [Entitic vol] 7.7 fL Normal 7-12 [facility] Comment on above: Performed By: #### P INR, 63843-5, 71165-5, CBCA, 13446-4, CMP, 4548-4, 6873-4 #### [facility] ([id number]) [address] [place] [address] #### HA1C #### [facility] ([id number]) [address], [address] [place] [address] Platelets (Bld) [#/Vol] 214 10*3/uL Normal 150-450 [facility] Comment on above: Performed By: #### P INR, 48159-9, 76962-3, CBCA, 42858-7, CMP, 4548-4, 6873-4 #### [facility] ([id number]) [address] [place] [address] #### HA1C #### [facility] ([id number]) [address] [facility] [facility] [address] [place] [address] RBC COUNT 5.43 X10E12/L Normal 4.10-5.70 [facility] Comment on above: Performed By: #### P INR, 88728-6, 37659-8, CBCA, 96885-7, CMP, 4548-4, 6873-4 #### [facility] ([id number]) [address] [place] [address] #### HA1C #### [facility] ([id number]) [address] [facility] [place] [address] SEG NEUTROPHIL 40.2 % Normal [facility] Comment on above: Performed By: #### P INR, 80839-8, 26422-5, CBCA, 87456-0, CMP, 4548-4, 6873-4 #### [facility] ([id number]) [address] [place] [address] #### HA1C #### [facility] ([id number]) [address] [facility] [place] [address] WBC (Bld) [#/Vol] 3.4 10*3/uL Low 4.0-11.0 [facility] Comment on above: Performed By: #### P INR, 71081-6, 64712-0, CBCA, 60901-1, CMP, 4548-4, 6873-4 #### [facility] ([id number]) [address] [place] [address] #### HA1C #### [facility] ([id number]) [address] [place] [address], [address] [place] [address] COMPREHENSIVE METABOLIC PANE [place] 10-29-2023 Albumin [Mass/Vol] 4.1 g/dL Normal 3.2-5.3 [facility] Comment on above: Performed By: #### P INR, 99916-4, 99449-0, CBCA, 47647-1, CMP, 4548-4, 6873-4 #### [facility] ([id number]) [address] [place] [address] #### HA1C #### [facility] ([id number]) [address] [place] [address], [address] [place] [address] ALP [Catalytic activity/Vol] 66 U/L Normal 39-130 [facility] Comment on above: Performed By: #### P INR, 42851-2, 50414-3, CBCA, 42508-7, CMP, 4548-4, 6873-4 #### [facility] ([id number]) [address] [place] [address] #### HA1C #### [facility] ([id number]) [address] [place] [address], [address] [place] [address] ALT [Catalytic activity/Vol] 27 U/L Normal 0-40 [facility] Comment on above: Performed By: #### P INR, 06716-7, 62852-6, CBCA, 92616-2, CMP, 4548-4, 6873-4 #### [facility] ([id number]) [address] [place] [address] #### HA1C #### [facility] ([id number]) [address], [address] [place] [address] Anion gap [Moles/Vol] 9 mmol/L Normal 5-15 [facility] Comment on above: Performed By: #### P INR, 84887-6, 76917-1, CBCA, 42013-6, CMP, 4548-4, 6873-4 #### [facility] ([id number]) [address] [place] [address] #### HA1C #### [facility] ([id number]) [address], [address] [place] [address] AST [Catalytic activity/Vol] 19 U/L Normal 0-41 [facility] Comment on above: Performed By: #### P INR, 11837-4, 06657-0, CBCA, 23693-0, CMP, 4548-4, 6873-4 #### [facility] ([id number]) [address] [place] [address] #### HA1C #### [facility] [facility] ([id number]) [address], [address] [place] [address] Bilirubin [Mass/Vol] 0.7 mg/dL Normal 0.3-1.2 [facility] Comment on above: Performed By: #### P INR, 70021-9, 92828-0, CBCA, 15080-1, CMP, 4548-4, 6873-4 #### [facility] ([id number]) [address] [place] [address] 70805 #### HA1C #### [facility] ([id number]) [address], [address] [place] [address] Calcium [Mass/Vol] 9.1 mg/dL Normal 8.5-10.5 [facility] Comment on above: Performed By: #### P INR, 51484-8, 37936-4, CBCA, 03132-8, CMP, 4548-4, 6873-4 #### [facility] ([id number]) [address] [place] [address] 37985 #### HA1C #### [facility] ([id number]) [address], [address] [place] [address] Chloride [Moles/Vol] 94 mmol/L Low 98-109 [facility] Comment on above: Performed By: #### P INR, 85655-8, 15166-2, CBCA, 41534-3, CMP, 4548-4, 6873-4 #### [facility] ([id number]) [address] [place] [address] 06791 #### HA1C #### [facility] ([id number]) [address] [facility] [place] [address] CO2 [Moles/Vol] 28 mmol/L Normal 22-32 [facility] Comment on above: Performed By: #### P INR, 79683-4, 84501-3, CBCA, 56019-4, CMP, 4548-4, 6873-4 #### [facility] ([id number]) [address] [place] [address] 77853 #### HA1C #### [facility] ([id number]) [address] [facility] [place] [address] Creatinine [Mass/Vol] 0.78 mg/dL Normal 0.70-1.20 [facility] Comment on above: Result Comment: METH OD TRACEABLE TO IDMS STANDARD Performed By: #### P INR, 90641-0, 62688-0, CBCA, 47749-9, CMP, 4548-4, 6873-4 #### [facility] ([id number]) [address] [place] [address] 51845 #### HA1C #### [facility] ([id number]) [address], [address] [place] [address] eGFR (CKD-EPI) NON-RACE DEPENDENT >90 Normal >59 [facility] Comment on above: Result Comment: Reported eGFR is based on the CKD-EPI 2020 equation that does not use a race coefficient. Performed By: #### P INR, 69345-3, 01402-9, CBCA, 00346-2, CMP, 4548-4, 6873-4 #### [facility] ([id number]) [address] [place] [address] 16774 #### HA1C #### [facility] ([id number]) [address], [address] [place] [address] Glucose [Mass/Vol] 232 mg/dL High 65-99 [facility] Comment on above: Performed By: #### P INR, 12243-7, 62895-4, CBCA, 38273-6, CMP, 4548-4, 6873-4 #### [facility] ([id number]) [address] [place] [address] 38675 #### HA1C #### [facility] ([id number]) [address], [address] [place] [address] Potassium [Moles/Vol] 4.1 mmol/L Normal 3.5-5.0 [facility] Comment on above: Performed By: #### P INR, 02673-3, 91518-4, CBCA, 83352-5, CMP, 4548-4, 6873-4 #### [facility] ([id number]) [address] [place] [address] 83432 #### HA1C #### [facility] ([id number]) [address], [address] [place] [address] Protein [Mass/Vol] 7.1 g/dL Normal 6.0-8.0 [facility] Comment on above: Performed By: #### P INR, 19957-7, 39941-2, CBCA, 58860-4, CMP, 4548-4, 6873-4 #### [facility] ([id number]) [address] [place] [address] 90638 #### HA1C #### [facility] ([id number]) [address] [facility] [place] [address] Sodium [Moles/Vol] 131 mmol/L Low 134-146 [facility] Comment on above: Performed By: #### P INR, 95033-0, 24674-2, CBCA, 01605-7, CMP, 4548-4, 6873-4 #### [facility] ([id number]) [address] [place] [address] 88586 #### HA1C #### [facility] ([id number]) [address] [facility] [place] [address] Urea nitrogen [Mass/Vol] 14 mg/dL Normal 5-27 [facility] Comment on above: Performed By: #### P INR, 64141-8, 29057-2, CBCA, 97165-9, CMP, 4548-4, 6873-4 #### [facility] ([id number]) [address] [place] [address] 29427 #### HA1C #### [facility] ([id number]) [address] [facility] [place] [address] MAGNESIUMon 10-29-2023 Magnesium [Mass/Vol] 1.9 mg/dL Normal 1.8-2.6 [facility] Comment on above: Performed By: #### P INR, 44641-8, 91781-3, CBCA, 44153-0, CMP, 4548-4, 6873-4 #### [facility] ([id number]) [address] [place] [address] 32640 #### HA1C #### [facility] ([id number]) [address], [address] [place] [address] CBC AND AUTO DIFFon 10-28-19 24 ABSOLUTE BASOPHIL 0.1 X10E9/L Normal 0.0-0.2 [facility] Comment on above: Performed By: #### P INR, 14297-6, 53947-1, CBCA, 05147-9, CMP, 4548-4, 6873-4 #### [facility] ([id number]) [address] [place] [address] 61446 #### HA1C #### [facility] ([id number]) [address] [facility] [place] [address] ABSOLUTE NEUTROPHIL 1.5 X10E9/L Normal 1.5-6.6 [facility] Comment on above: Performed By: #### P INR, 66645-4, 55973-6, CBCA, 67447-5, CMP, 4548-4, 6873-4 #### [facility] ([id number]) [address] [place] [address] 65097 #### HA1C #### [facility] ([id number]) [address], [address] [place] [address] Basophils/100 WBC (Bld) 1.4 % Normal [facility] Comment on above: Performed By: #### P INR, 37912-4, 85232-4, CBCA, 38564-7, CMP, 4548-4, 6873-4 #### [facility] ([id number]) [address] [place] [address] 18179 #### HA1C #### [facility] ([id number]) [address], [address] [place] [address] Eosinophils (Bld) [#/Vol] 0.1 10*3/uL Normal 0.0-0.4 [facility] Comment on above: Performed By: #### P INR, 82986-9, 76141-9, CBCA, 49736-4, CMP, 4548-4, 6873-4 #### [facility] ([id number]) [address] [place] [address] 58253 #### HA1C #### [facility] ([id number]) [address], [address] [place] [address] Eosinophils/100 WBC (Bld) 3.1 % Normal [facility] Comment on above: Performed By: #### P INR, 55832-6, 50171-1, CBCA, 58781-0, CMP, 4548-4, 6873-4 #### [facility] ([id number]) [address] [place] [address] 89873 #### HA1C #### [facility] ([id number]) [address], [address] [place] [address] Erythrocyte distribution width (RBC) [Ratio] 13.6 % Normal 11.5-15.0 [facility] Comment on above: Performed By: #### P INR, 54353-0, 54619-5, CBCA, 53904-7, CMP, 4548-4, 6873-4 #### [facility] ([id number]) [address] [place] [address] 20475 #### HA1C #### [facility] ([id number]) [address], [address] [place] [address] Hematocrit (Bld) [Volume fraction] 42.8 % Normal 39-49 [facility] Comment on above: Performed By: #### P INR, 10155-9, 03977-5, CBCA, 61913-8, CMP, 4548-4, 6873-4 #### [facility] ([id number]) [address] [place] [address] 20156 #### HA1C #### [facility] ([id number]) [address], [address] [place] [address] Hemoglobin (Bld) [Mass/Vol] 14.9 g/dL Normal 13.0-17.0 [facility] Comment on above: Performed By: #### P INR, 21254-0, 40788-0, CBCA, 65884-3, CMP, 4548-4, 6873-4 #### [facility] ([id number]) [address] [place] [address] 21532 #### HA1C #### [facility] ([id number]) [address], [address] [place] [address] Lymphocytes (Bld) [#/Vol] 1.8 10*3/uL Normal 1.0-3.5 [facility] Comment on above: Performed By: #### P INR, 69719-7, 88521-1, CBCA, 48380-5, CMP, 4548-4, 6873-4 #### [facility] ([id number]) [address] [place] [address] 87691 #### HA1C #### [facility] ([id number]) [address], [address] [place] [address] Lymphocytes/100 WBC (Bld) 46.0 % Normal [facility] Comment on above: Performed By: #### P INR, 29655-2, 98308-3, CBCA, 90161-5, CMP, 4548-4, 6873-4 #### [facility] ([id number]) [address] [place] [address] 03226 #### HA1C #### [facility] ([id number]) [address], [address] [place] [address] MCH (RBC) [Entitic mass] 29.6 pg Normal 27-34 [facility] Comment on above: Performed By: #### P INR, 69632-4, 39079-2, CBCA, 74840-9, CMP, 4548-4, 6873-4 #### [facility] ([id number]) [address] [place] [address] #### HA1C #### [facility] ([id number]) [address] [facility], [address] [place] [address] MCHC (RBC) [Mass/Vol] 34.7 g/dL Normal 32-36 [facility] Comment on above: Performed By: #### P INR, 07046-1, 70725-0, CBCA, 38429-7, CMP, 4548-4, 6873-4 #### [facility] ([id number]) [address] [place] [address] #### HA1C #### [facility] ([id number]) [address] [facility] [address] [place] [address] MCV (RBC) [Entitic vol] 86 fL Normal 80-100 [facility] Comment on above: Performed By: #### P INR, 87098-8, 85267-1, CBCA, 30358-3, CMP, 4548-4, 6873-4 #### [facility] ([id number]) [address] [place], [place] [id number] #### HA1C #### [facility] ([id number]) [address] [facility] [address] [place] [address] Monocytes (Bld) [#/Vol] 0.4 10*3/uL Normal 0-0.9 [facility] Comment on above: Performed By: #### P INR, 39341-0, 85333-0, CBCA, 70416-6, CMP, 4548-4, 6873-4 #### [facility] ([id number]) [address] [place] [address] 80484 #### HA1C #### [facility] ([id number]) [address], [address] [place] [address] Monocytes/100 WBC (Bld) 10.4 % Normal [facility] Comment on above: Performed By: #### P INR, 43141-5, 74041-7, CBCA, 44716-4, CMP, 4548-4, 6873-4 #### [facility] ([id number]) [address] [place] [address] 04612 #### HA1C #### [facility] ([id number]) [address], [address] [place] [address] Neutrophils/100 WBC (Bld) 39.1 % Normal [facility] Comment on above: Performed By: #### P INR, 97061-0, 37454-5, CBCA, 54928-8, CMP, 4548-4, 6873-4 #### [facility] ([id number]) [address] [place] [address] 98811 #### HA1C #### [facility] ([id number]) [address], [address] [place] [address] Platelet mean volume (Bld) [Entitic vol] 7.9 fL Normal 7-12 [facility] Comment on above: Performed By: #### P INR, 35843-0, 85608-6, CBCA, 26222-0, CMP, 4548-4, 6873-4 #### [facility] ([id number]) [address] [place] [address] 60533 #### HA1C #### [facility] ([id number]) [address], [address] [place] [address] Platelets (Bld) [#/Vol] 197 10*3/uL Normal 150-450 [facility] Comment on above: Performed By: #### P INR, 43835-8, 55428-9, CBCA, 09170-0, CMP, 4548-4, 6873-4 #### [facility] ([id number]) [address] [place] [address] 96367 #### HA1C #### [facility] ([id number]) [address] [place] [address], [address] [place] [address] RBC COUNT 5.01 X10E12/L Normal 4.10-5.70 [facility] Comment on above: Performed By: #### P INR, 29584-2, 11111-7, CBCA, 54766-9, CMP, 4548-4, 6873-4 #### [facility] ([id number]) [address] [place] [address] 16973 #### HA1C #### [facility] ([id number]) [address] [place] [address], [address] [place] [address] WBC (Bld) [#/Vol] 3.9 10*3/uL Low 4.0-11.0 [facility] Comment on above: Performed By: #### P INR, 43567-4, 61616-8, CBCA, 17050-1, CMP, 4548-4, 6873-4 #### [facility] ([id number]) [address] [place] [address] 72672 #### HA1C #### [facility] ([id number]) [address] [place] [address], [address] [place] [address] COMPREHENSIVE METABOLIC PANE [place] 10-28-2023 Albumin [Mass/Vol] 3.8 g/dL Normal 3.2-5.3 [facility] Comment on above: Performed By: #### P INR, 34091-6, 89420-1, CBCA, 45353-6, CMP, 4548-4, 6873-4 #### [facility] ([id number]) [address] [place] [address] 75955 #### HA1C #### [facility] ([id number]) [address], [address] [place] [address] ALP [Catalytic activity/Vol] 61 U/L Normal 39-130 [facility] Comment on above: Performed By: #### P INR, 44283-6, 13002-0, CBCA, 63504-1, CMP, 4548-4, 6873-4 #### [facility] ([id number]) [address] [place] [address] 77115 #### HA1C #### [facility] ([id number]) [address] [facility] [facility] [place] [address] ALT [Catalytic activity/Vol] 22 U/L Normal 0-40 [facility] Comment on above: Performed By: #### P INR, 38798-0, 77248-4, CBCA, 89478-3, CMP, 4548-4, 6873-4 #### [facility] ([id number]) [address] [place] [address] 28106 #### HA1C #### [facility] ([id number]) [address], [address] [place] [address] Anion gap [Moles/Vol] 10 mmol/L Normal 5-15 [facility] Comment on above: Performed By: #### P INR, 87513-9, 47892-7, CBCA, 77668-3, CMP, 4548-4, 6873-4 #### [facility] ([id number]) [address] [place] [address] 69420 #### HA1C #### [facility] ([id number]) [address], [address] [place] [address] AST [Catalytic activity/Vol] 18 U/L Normal 0-41 [facility] Comment on above: Performed By: #### P INR, 88839-9, 82535-1, CBCA, 96152-4, CMP, 4548-4, 6873-4 #### [facility] ([id number]) [address] [place] [address] 52574 #### HA1C #### [facility] ([id number]) [address] [facility] [place] [address] Bilirubin [Mass/Vol] 0.8 mg/dL Normal 0.3-1.2 [facility] Comment on above: Performed By: #### P INR, 32817-6, 61757-1, CBCA, 40557-3, CMP, 4548-4, 6873-4 #### [facility] ([id number]) [address] [place] [address] 54816 #### HA1C #### [facility] ([id number]) [address] [facility] [place] [address] Calcium [Mass/Vol] 8.5 mg/dL Normal 8.5-10.5 [facility] Comment on above: Performed By: #### P INR, 88940-5, 36346-7, CBCA, 41690-9, CMP, 4548-4, 6873-4 #### [facility] ([id number]) [address] [place] [address] 69069 #### HA1C #### [facility] ([id number]) [address] [facility] [place] [address] Chloride [Moles/Vol] 94 mmol/L Low 98-109 [facility] Comment on above: Performed By: #### P INR, 60473-4, 37375-3, CBCA, 32779-5, CMP, 4548-4, 6873-4 #### [facility] ([id number]) [address] [place] [address] 20366 #### HA1C #### [facility] ([id number]) [address] [address] CO2 [Moles/Vol] 26 mmol/L Normal 22-32 [facility] Comment on above: Performed By: #### P INR, 42048-4, 04253-7, CBCA, 05198-3, CMP, 4548-4, 6873-4 #### [facility] ([id number]) [address] [place] [address] 96248 #### HA1C #### [facility] ([id number]) [address] [address] Creatinine [Mass/Vol] 0.79 mg/dL Normal 0.70-1.20 [facility] Comment on above: Result Comment: METH OD TRACEABLE TO IDMS STANDARD Performed By: #### P INR, 78094-7, 53728-0, CBCA, 86718-3, CMP, 4548-4, 6873-4 #### [facility] ([id number]) [address] [place] [address] 72660 #### HA1C #### [facility] ([id number]) [address] [address] eGFR (CKD-EPI) NON-RACE DEPENDENT >90 Normal >59 [facility] Comment on above: Result Comment: Reported eGFR is based on the CKD-EPI 2020 equation that does not use a race coefficient. Performed By: #### P INR, 57390-4, 77793-2, CBCA, 95639-2, CMP, 4548-4, 6873-4 #### [facility] ([id number]) [address] [place] [address] 30408 #### HA1C #### [facility] ([id number]) [address] [place] [address] Glucose [Mass/Vol] 228 mg/dL High 65-99 [facility] Comment on above: Performed By: #### P INR, 46141-0, 62287-0, CBCA, 00992-5, CMP, 4548-4, 6873-4 #### [facility] ([id number]) [address] [place] [address] 72419 #### HA1C #### [facility] ([id number]) [address], [address] [place] [address] Potassium [Moles/Vol] 3.7 mmol/L Normal 3.5-5.0 [facility] Comment on above: Performed By: #### P INR, 36647-2, 57806-9, CBCA, 56483-7, CMP, 4548-4, 6873-4 #### [facility] ([id number]) [address] [place] [address] 90725 #### HA1C #### [facility] ([id number]) [address], [address] [place] [address] Protein [Mass/Vol] 6.3 g/dL Normal 6.0-8.0 [facility] Comment on above: Performed By: #### P INR, 06477-3, 68702-3, CBCA, 66925-5, CMP, 4548-4, 6873-4 #### [facility] ([id number]) [address] [place] [address] 43116 #### HA1C #### [facility] ([id number]) [address] [place] [address] Sodium [Moles/Vol] 130 mmol/L Low 134-146 [facility] Comment on above: Performed By: #### P INR, 90618-0, 11483-5, CBCA, 55621-7, CMP, 4548-4, 6873-4 #### [facility] ([id number]) [address] [place] [address] #### HA1C #### [facility] ([id number]) [address] [place] [address] Urea nitrogen [Mass/Vol] 16 mg/dL Normal 5-27 [facility] Comment on above: Performed By: #### P INR, 95605-6, 64561-9, CBCA, 53117-1, CMP, 4548-4, 6873-4 #### [facility] ([id number]) [address] [place] [address] #### HA1C #### [facility] ([id number]) [address], [address] [place] [address] CT CTA CAROTIDon 10-28-2023 CT CTA CAROTID [...] Giles MD on 10/28/2023 12:26 PM Normal [facility] CT CTA HEADon 10-28-2023 CT CTA [...] Mayes MD on 10/28/2023 12:38 PM Normal [facility] Glucose Glucometer (BldC) [M ass/Vol]on 10-28-2023 Glucose [Mass/Vol] 226 mg/dL High 65-99 [facility] Glucose [Mass/Vol] 279 mg/dL High 65-99 [facility] Glucose [Mass/Vol] 248 mg/dL High 65-99 [facility] Glucose [Mass/Vol] 221 mg/dL High 65-99 [facility] Lipid 1996 panelon Cholesterol [Mass/Vol] 219 mg/dL High 150-[address] [facility] Comment on above: Performed By: #### P INR, 38409-4, 74833-2, CBCA, 86638-2, CMP, 4548-4, 6873-4 #### [facility] ([id number]) [address] [facility] [place] [address] #### HA1C #### [facility] ([id number]) [address] [place] [address], [address] [place] [address] Cholesterol in HDL [Mass/Vol] 43 mg/dL Normal >39 [facility] Comment on above: Result Comment: HDL <40 mg/dL - High Risk HDL > or = 40mg/dL- Desirable HDL >60 mg/dL - Negative Risk Performed By: #### P INR, 79665-2, 92522-0, CBCA, 48046-5, CMP, 4548-4, 6873-4 #### [facility] ([id number]) [address] [place] [address] 388[address] #### HA1C #### [facility] ([id number]) [address] [facility] [place] [address] Cholesterol in LDL [Mass/Vol] 143 mg/dL High <130 [facility] Comment on above: Result Comment: LDL <100 mg/dL - Desirable LDL >160 mg/dL - High Risk Performed By: #### P INR, 10292-5, 26691-5, CBCA, 96779-0, CMP, 4548-4, 6873-4 #### [facility] ([id number]) [address] [place] [address] #### HA1C #### [facility] ([id number]) [address], [address] [place] [address] Cholesterol in VLDL [Mass/Vol] 33 mg/dL High 0-30 [facility] Comment on above: Performed By: #### P INR, 96624-9, 85533-5, CBCA, 68787-3, CMP, 4548-4, 6873-4 #### [facility] ([id number]) [address] [place] [address] #### HA1C #### [facility] ([id number]) [address], [address] [place] [address] CHOLESTEROL:HDL 5.1 High 1.0-5.0 [facility] Comment on above: Performed By: #### P INR, 75543-0, 53236-0, CBCA, 51907-8, CMP, 4548-4, 6873-4 #### [facility] ([id number]) [address] [place] [address] #### HA1C #### [facility] ([id number]) [address] [address], [address] [place] [address] Triglyceride [Mass/Vol] 164 mg/dL High 27-150 [facility] Comment on above: Performed By: #### P INR, 63515-4, 33162-1, CBCA, 80147-2, CMP, 4548-4, 6873-4 #### [facility] ([id number]) [address] [place] [address] #### HA1C #### [facility] ([id number]) [address] [place] [address] MAGNESIUMon 10-28-2023 Magnesium [Mass/Vol] 1.8 mg/dL Normal 1.8-2.6 [facility] Comment on above: Performed By: #### P INR, 57088-5, 67407-9, CBCA, 28086-7, CMP, 4548-4, 6873-4 #### [facility] ([id number]) [address] [place] [address] #### HA1C #### [facility] ([id number]) [address] [place] [address] MR BRAIN WO CONTon 4 MR BRAIN [...] TELEPHONED BY THE RADIOLOGY DEPARTMENT. Finalized by Yudelka Anderson MD on 10/28/2023 10:39 AM Normal [facility] CBC AND AUTO DIFFon 10-27-19 24 ABSOLUTE BASOPHIL 0.0 X10E9/L Normal 0.0-0.2 [facility] Comment on above: Performed By: #### P INR, 17121-9, 78329-0, CBCA, 29302-2, CMP, 4548-4, 6873-4 #### [facility] ([id number]) [address] [place] [address], [place] [address] #### HA1C #### [facility] ([id number]) [address], [address] [place] [address] ABSOLUTE NEUTROPHIL 1.8 X10E9/L Normal 1.5-6.6 [facility] Comment on above: Performed By: #### P INR, 86284-6, 57253-7, CBCA, 87540-7, CMP, 4548-4, 6873-4 #### [facility] ([id number]) [address] [place] [address] #### HA1C #### [facility] ([id number]) [address] [place] [address], [address] [place] [address] Basophils/100 WBC (Bld) 1.2 % Normal [facility] Comment on above: Performed By: #### P INR, 19108-4, 55884-9, CBCA, 60803-5, CMP, 4548-4, 6873-4 #### [facility] ([id number]) [address] [place] [address] #### HA1C #### [facility] ([id number]) [address] [place] [address], [address] [place] [address] Eosinophils (Bld) [#/Vol] 0.1 10*3/uL Normal 0.0-0.4 [facility] Comment on above: Performed By: #### P INR, 94470-3, 57593-9, CBCA, 19827-7, CMP, 4548-4, 6873-4 #### [facility] ([id number]) [address] [place] [address] #### HA1C #### [facility] ([id number]) [address] [place] [address], [address] [place] [address] Eosinophils/100 WBC (Bld) 2.5 % Normal [facility] Comment on above: Performed By: #### P INR, 53862-4, 98040-1, CBCA, 16354-4, CMP, 4548-4, 6873-4 #### [facility] ([id number]) [address] [place] [address] #### HA1C #### [facility] ([id number]) [address], [address] [place] [address] Erythrocyte distribution width (RBC) [Ratio] 13.5 % Normal 11.5-15.0 [facility] Comment on above: Performed By: #### P INR, 98148-8, 29397-0, CBCA, 22826-6, CMP, 4548-4, 6873-4 #### [facility] ([id number]) [address] [place] [address] 86733 #### HA1C #### [facility] ([id number]) [address] [facility] [facility], [address] [place] [address] Hematocrit (Bld) [Volume fraction] 43.3 % Normal 39-49 [facility] Comment on above: Performed By: #### P INR, 98625-6, 39916-4, CBCA, 10077-5, CMP, 4548-4, 6873-4 #### [facility] ([id number]) [address] [place] [address] 25837 #### HA1C #### [facility] ([id number]) [address], [address] [place] [address] Hemoglobin (Bld) [Mass/Vol] 14.9 g/dL Normal 13.0-17.0 [facility] Comment on above: Performed By: #### P INR, 16657-6, 46952-0, CBCA, 65044-6, CMP, 4548-4, 6873-4 #### [facility] ([id number]) [address] [place] [address] 77591 #### HA1C #### [facility] ([id number]) [address] [facility], [address] [place] [address] Lymphocytes (Bld) [#/Vol] 1.3 10*3/uL Normal 1.0-3.5 [facility] Comment on above: Performed By: #### P INR, 12672-1, 64192-7, CBCA, 33213-6, CMP, 4548-4, 6873-4 #### [facility] ([id number]) [address] [place] [address] 80728 #### HA1C #### [facility] ([id number]) [address] [place] [address], [address] [place] [address] Lymphocytes/100 WBC (Bld) 36.9 % Normal [facility] Comment on above: Performed By: #### P INR, 38582-1, 09655-1, CBCA, 31364-6, CMP, 4548-4, 6873-4 #### [facility] ([id number]) [address] [place] [address] 81389 #### HA1C #### [facility] ([id number]) [address] [place] [address], [address] [place] [address] MCH (RBC) [Entitic mass] 29.3 pg Normal 27-34 [facility] Comment on above: Performed By: #### P INR, 95244-8, 77653-9, CBCA, 81243-7, CMP, 4548-4, 6873-4 #### [facility] ([id number]) [address] [place] [address] 48030 #### HA1C #### [facility] ([id number]) [address] [place] [address], [address] [place] [address] MCHC (RBC) [Mass/Vol] 34.4 g/dL Normal 32-36 [facility] Comment on above: Performed By: #### P INR, 25888-5, 75080-0, CBCA, 77758-3, CMP, 4548-4, 6873-4 #### [facility] ([id number]) [address] [place] [address] 88433 #### HA1C #### [facility] ([id number]) [address] [facility] [facility], [address] [place] [address] MCV (RBC) [Entitic vol] 85 fL Normal 80-100 [facility] Comment on above: Performed By: #### P INR, 85498-5, 86639-1, CBCA, 82990-5, CMP, 4548-4, 6873-4 #### [facility] ([id number]) [address] [place] [address] 54914 #### HA1C #### [facility] ([id number]) [address] [facility], [address] [place] [address] Monocytes (Bld) [#/Vol] 0.3 10*3/uL Normal 0-0.9 [facility] Comment on above: Performed By: #### P INR, 62709-8, 50603-5, CBCA, 44057-0, CMP, 4548-4, 6873-4 #### [facility] ([id number]) [address] [place] [address] 33673 #### HA1C #### [facility] ([id number]) [address] [facility], [address] [place] [address] Monocytes/100 WBC (Bld) 8.4 % Normal [facility] Comment on above: Performed By: #### P INR, 61979-4, 10981-3, CBCA, 08130-0, CMP, 4548-4, 6873-4 #### [facility] ([id number]) [address] [place] [address] 84135 #### HA1C #### [facility] ([id number]) [address], [address] [place] [address] Neutrophils/100 WBC (Bld) 51.0 % Normal [facility] Comment on above: Performed By: #### P INR, 29482-3, 72887-9, CBCA, 16137-9, CMP, 4548-4, 6873-4 #### [facility] ([id number]) [address] [place] [address] 01040 #### HA1C #### [facility] ([id number]) [address] [facility], [address] [place] [address] Platelet mean volume (Bld) [Entitic vol] 7.7 fL Normal 7-12 [facility] Comment on above: Performed By: #### P INR, 74159-7, 69109-9, CBCA, 06639-3, CMP, 4548-4, 6873-4 #### [facility] ([id number]) [address] [place] [address] 55205 #### HA1C #### [facility] ([id number]) [address] [facility], [facility] [address] [place] [address] Platelets (Bld) [#/Vol] 192 10*3/uL Normal 150-450 [facility] Comment on above: Performed By: #### P INR, 91432-7, 52533-0, CBCA, 64209-2, CMP, 4548-4, 6873-4 #### [facility] ([id number]) [address] [place] [address] 12270 #### HA1C #### [facility] ([id number]) [address] [facility], [facility] [address] [place] [address] RBC COUNT 5.08 X10E12/L Normal 4.10-5.70 [facility] Comment on above: Performed By: #### P INR, 18693-6, 50007-5, CBCA, 13596-7, CMP, 4548-4, 6873-4 #### [facility] ([id number]) [address] [place] [address] 82022 #### HA1C #### [facility] ([id number]) [address] [facility], [address] [place] [address] WBC (Bld) [#/Vol] 3.6 10*3/uL Low 4.0-11.0 [facility] Comment on above: Performed By: #### P INR, 88248-2, 50692-6, CBCA, 67530-9, CMP, 4548-4, 6873-4 #### [facility] ([id number]) [address] [place] [address] 50771 #### HA1C #### [facility] ([id number]) [address] [facility], [address] [place] [address] COMPREHENSIVE METABOLIC PANE [place] 10-27-2023 Albumin [Mass/Vol] 4.0 g/dL Normal 3.2-5.3 [facility] Comment on above: Performed By: #### P INR, 50997-0, 21953-6, CBCA, 56463-9, CMP, 4548-4, 6873-4 #### [facility] ([id number]) [address] [place] [address] 59997 #### HA1C #### [facility] ([id number]) [address] [facility], [address] [place] [address] ALP [Catalytic activity/Vol] 65 U/L Normal 39-130 [facility] Comment on above: Performed By: #### P INR, 85842-2, 20841-9, CBCA, 17926-9, CMP, 4548-4, 6873-4 #### [facility] ([id number]) [address] [place] [address] 41864 #### HA1C #### [facility] ([id number]) [address], [address] [place] [address] ALT [Catalytic activity/Vol] 21 U/L Normal 0-40 [facility] Comment on above: Performed By: #### P INR, 48854-3, 15970-6, CBCA, 88673-8, CMP, 4548-4, 6873-4 #### [facility] ([id number]) [address] [place] [address] 91924 #### HA1C #### [facility] ([id number]) [address] [facility] [facility] [place] [address] Anion gap [Moles/Vol] 4 mmol/L Low 5-15 [facility] Comment on above: Performed By: #### P INR, 87667-3, 94518-4, CBCA, 90567-9, CMP, 4548-4, 6873-4 #### [facility] ([id number]) [address] [place] [address] 76079 #### HA1C #### [facility] ([id number]) [address] [facility] [facility], [address] [place] [address] AST [Catalytic activity/Vol] 17 U/L Normal 0-41 [facility] Comment on above: Performed By: #### P INR, 16432-9, 27617-2, CBCA, 85470-0, CMP, 4548-4, 6873-4 #### [facility] ([id number]) [address] [place] [address] 01288 #### HA1C #### [facility] ([id number]) [address] [facility], [address] [place] [address] Bilirubin [Mass/Vol] 1.1 mg/dL Normal 0.3-1.2 [facility] Comment on above: Performed By: #### P INR, 94715-9, 10607-9, CBCA, 51480-9, CMP, 4548-4, 6873-4 #### [facility] ([id number]) [address] [place] [address] 88570 #### HA1C #### [facility] ([id number]) [address], [address] [place] [address] Calcium [Mass/Vol] 8.3 mg/dL Low 8.5-10.5 [facility] Comment on above: Performed By: #### P INR, 35748-2, 86975-3, CBCA, 20897-9, CMP, 4548-4, 6873-4 #### [facility] ([id number]) [address] [place] [address] 88765 #### HA1C #### [facility] ([id number]) [address], [address] [place] [address] Chloride [Moles/Vol] 101 mmol/L Normal 98-109 [facility] Comment on above: Performed By: #### P INR, 17590-0, 28053-6, CBCA, 17103-7, CMP, 4548-4, 6873-4 #### [facility] ([id number]) [address] [place] [address] 70008 #### HA1C #### [facility] ([id number]) [address], [address] [place] [address] CO2 [Moles/Vol] 24 mmol/L Normal 22-32 [facility] Comment on above: Performed By: #### P INR, 43587-4, 11299-1, CBCA, 22950-1, CMP, 4548-4, 6873-4 #### [facility] ([id number]) [address] [place] [address] 36236 #### HA1C #### [facility] ([id number]) [address], [address] [place] [address] Creatinine [Mass/Vol] 0.75 mg/dL Normal 0.70-1.20 [facility] Comment on above: Result Comment: METH OD TRACEABLE TO IDMS STANDARD Performed By: #### P INR, 33136-2, 90439-4, CBCA, 84436-5, CMP, 4548-4, 6873-4 #### [facility] ([id number]) [address] [place] [address] 24803 #### HA1C #### [facility] ([id number]) [address] [facility], [address] [place] [address] eGFR (CKD-EPI) NON-RACE DEPENDENT >90 Normal >59 [facility] Comment on above: Result Comment: Reported eGFR is based on the CKD-EPI 2020 equation that does not use a race coefficient. Performed By: #### P INR, 21044-9, 50206-9, CBCA, 50822-4, CMP, 4548-4, 6873-4 #### [facility] ([id number]) [address] [place] [address] 55418 #### HA1C #### [facility] ([id number]) [address] [facility], [address] [place] [address] Glucose [Mass/Vol] 272 mg/dL High 65-99 [facility] Comment on above: Performed By: #### P INR, 99642-8, 88313-2, CBCA, 04026-3, CMP, 4548-4, 6873-4 #### [facility] ([id number]) [address] [place] [address] 91702 #### HA1C #### [facility] ([id number]) [address] [facility], [address] [place] [address] Potassium [Moles/Vol] 4.1 mmol/L Normal 3.5-5.0 [facility] Comment on above: Performed By: #### P INR, 56570-8, 84846-4, CBCA, 55431-9, CMP, 4548-4, 6873-4 #### [facility] ([id number]) [address] [place] [address] 66540 #### HA1C #### [facility] ([id number]) [address] [facility] [place] [address] Protein [Mass/Vol] 6.4 g/dL Normal 6.0-8.0 [facility] Comment on above: Performed By: #### P INR, 15013-9, 58564-3, CBCA, 81380-4, CMP, 4548-4, 6873-4 #### [facility] ([id number]) [address] [place] [address] 34609 #### HA1C #### [facility] ([id number]) [address] [facility], [address] [place] [address] Sodium [Moles/Vol] 129 mmol/L Low 134-146 [facility] Comment on above: Performed By: #### P INR, 33652-4, 15627-2, CBCA, 29269-4, CMP, 4548-4, 6873-4 #### [facility] ([id number]) [address] [place] [address] 69789 #### HA1C #### [facility] ([id number]) [address] [facility], [address] [place] [address] Urea nitrogen [Mass/Vol] 20 mg/dL Normal 5-27 [facility] Comment on above: Performed By: #### P INR, 78408-9, 99985-8, CBCA, 67688-1, CMP, 4548-4, 6873-4 #### [facility] ([id number]) [address] [place] [address] 44796 #### HA1C #### [facility] ([id number]) [address] [facility], [address] [place] [address] Glucose Glucometer (BldC) [M ass/Vol]on 10-27-2023 Glucose [Mass/Vol] 293 mg/dL High 65-99 [facility] Glucose [Mass/Vol] 311 mg/dL High 65-99 [facility] Glucose [Mass/Vol] 270 mg/dL High 65-99 [facility] Glucose [Mass/Vol] 280 mg/dL High 65-99 [facility] Glucose [Mass/Vol] 260 mg/dL High 65-99 [facility] MAGNESIUMon 10-27-2023 Magnesium [Mass/Vol] 2.2 mg/dL Normal 1.8-2.6 [facility] Comment on above: Performed By: #### P INR, 77222-8, 78437-6, CBCA, 37436-2, CMP, 4548-4, 6873-4 #### [facility] ([id number]) [address] [place] [address] 58522 #### HA1C #### [facility] ([id number]) [address] [place] [address], [address] [place] [address] Beta hydroxybutyrate [Moles/ Vol]on 10-26-2023 BetaHydroxybutyrate 1.69 mmol/L High 0.02-0.27 [facility] Comment on above: Performed By: #### P INR, 16081-8, 83713-0, CBCA, 61627-9, CMP, 4548-4, 6873-4 #### [facility] ([id number]) [address] [place] [address] 20981 #### HA1C #### [facility] ([id number]) [address] [facility], [address] [place] [address] CBC AND AUTO DIFFon 10-26-20 ABSOLUTE BASOPHIL 0.0 X10E9/L Normal 0.0-0.2 [facility] Comment on above: Performed By: #### P INR, 38609-0, 50506-8, CBCA, 08068-4, CMP, 4548-4, 6873-4 #### [facility] ([id number]) [address] [place] [address] 28838 #### HA1C #### [facility] ([id number]) [address] [facility], [address] [place] [address] ABSOLUTE NEUTROPHIL 2.5 X10E9/L Normal 1.5-6.6 [facility] Comment on above: Performed By: #### P INR, 06798-5, 42448-9, CBCA, 42700-5, CMP, 4548-4, 6873-4 #### [facility] ([id number]) [address] [place] [address] 92558 #### HA1C #### [facility] ([id number]) [address] [facility], [address] [place] [address] Basophils/100 WBC (Bld) 1.0 % Normal [facility] Comment on above: Performed By: #### P INR, 24545-5, 99605-6, CBCA, 56335-9, CMP, 4548-4, 6873-4 #### [facility] ([id number]) [address] [place] [address] 06273 #### HA1C #### [facility] ([id number]) [address], [address] [place] [address] Eosinophils (Bld) [#/Vol] 0.1 10*3/uL Normal 0.0-0.4 [facility] Comment on above: Performed By: #### P INR, 78590-1, 76604-8, CBCA, 93803-3, CMP, 4548-4, 6873-4 #### [facility] ([id number]) [address] [place] [address] 69819 #### HA1C #### [facility] ([id number]) [address] [facility], [address] [place] [address] Eosinophils/100 WBC (Bld) 1.2 % Normal [facility] Comment on above: Performed By: #### P INR, 49535-3, 44205-5, CBCA, 48433-2, CMP, 4548-4, 6873-4 #### [facility] ([id number]) [address] [place] [address] 35668 #### HA1C #### [facility] ([id number]) [address] [facility] [address] [place] [address] Erythrocyte distribution width (RBC) [Ratio] 13.4 % Normal 11.5-15.0 [facility] Comment on above: Performed By: #### P INR, 50237-8, 31826-8, CBCA, 68596-3, CMP, 4548-4, 6873-4 #### [facility] ([id number]) [address] [place] [address] 74186 #### HA1C #### [facility] ([id number]) [address] [place] [address], [facility] [address] [place] [address] Hematocrit (Bld) [Volume fraction] 46.5 % Normal 39-49 [facility] Comment on above: Performed By: #### P INR, 59554-5, 79495-4, CBCA, 73344-2, CMP, 4548-4, 6873-4 #### [facility] ([id number]) [address] [place] [address] 42827 #### HA1C #### [facility] ([id number]) [address] [place] [address], [address] [place] [address] Hemoglobin (Bld) [Mass/Vol] 16.0 g/dL Normal 13.0-17.0 [facility] Comment on above: Performed By: #### P INR, 69467-3, 66199-5, CBCA, 98298-8, CMP, 4548-4, 6873-4 #### [facility] ([id number]) [address] [place] [address] 05960 #### HA1C #### [facility] ([id number]) [address] [facility], [address] [place] [address] Lymphocytes (Bld) [#/Vol] 1.4 10*3/uL Normal 1.0-3.5 [facility] Comment on above: Performed By: #### P INR, 58530-6, 24676-1, CBCA, 83372-6, CMP, 4548-4, 6873-4 #### [facility] ([id number]) [address] [place] [address] 74917 #### HA1C #### [facility] ([id number]) [address] [facility], [address] [place] [address] Lymphocytes/100 WBC (Bld) 31.7 % Normal [facility] Comment on above: Performed By: #### P INR, 25607-7, 21415-2, CBCA, 49465-1, CMP, 4548-4, 6873-4 #### [facility] ([id number]) [address] [place] [address] 81413 #### HA1C #### [facility] ([id number]) [address], [address] [place] [address] MCH (RBC) [Entitic mass] 29.6 pg Normal 27-34 [facility] Comment on above: Performed By: #### P INR, 70952-9, 32955-1, CBCA, 64023-3, CMP, 4548-4, 6873-4 #### [facility] ([id number]) [address] [place] [address] 88532 #### HA1C #### [facility] ([id number]) [address], [address] [place] [address] MCHC (RBC) [Mass/Vol] 34.4 g/dL Normal 32-36 [facility] Comment on above: Performed By: #### P INR, 14948-3, 99999-1, CBCA, 05460-7, CMP, 4548-4, 6873-4 #### [facility] ([id number]) [address] [place] [address] 94915 #### HA1C #### [facility] ([id number]) [address] [facility] [address] [place] [address] MCV (RBC) [Entitic vol] 86 fL Normal 80-100 [facility] Comment on above: Performed By: #### P INR, 87272-7, 07498-1, CBCA, 40593-4, CMP, 4548-4, 6873-4 #### [facility] ([id number]) [address] [place] [address] 08257 #### HA1C #### [facility] ([id number]) [address] [facility] [place] [address] Monocytes (Bld) [#/Vol] 0.3 10*3/uL Normal 0-0.9 [facility] Comment on above: Performed By: #### P INR, 94482-3, 37069-5, CBCA, 09630-3, CMP, 4548-4, 6873-4 #### [facility] ([id number]) [address] [place] [address] 66138 #### HA1C #### [facility] ([id number]) [address], [address] [place] [address] Monocytes/100 WBC (Bld) 7.3 % Normal [facility] Comment on above: Performed By: #### P INR, 50908-9, 54979-1, CBCA, 49220-6, CMP, 4548-4, 6873-4 #### [facility] ([id number]) [address] [place] [address] 21687 #### HA1C #### [facility] ([id number]) [address], [address] [place] [address] Neutrophils/100 WBC (Bld) 58.8 % Normal [facility] Comment on above: Performed By: #### P INR, 24369-1, 68915-7, CBCA, 11397-4, CMP, 4548-4, 6873-4 #### [facility] ([id number]) [address] [place] [address] 99447 #### HA1C #### [facility] ([id number]) [address], [address] [place] [address] Platelet mean volume (Bld) [Entitic vol] 8.0 fL Normal 7-12 [facility] Comment on above: Performed By: #### P INR, 93169-3, 95580-7, CBCA, 34209-5, CMP, 4548-4, 6873-4 #### [facility] ([id number]) [address] [place] [address] #### HA1C #### [facility] ([id number]) [address], [address] [place] [address] Platelets (Bld) [#/Vol] 219 10*3/uL Normal 150-450 [facility] Comment on above: Performed By: #### P INR, 33979-7, 66736-0, CBCA, 74427-8, CMP, 4548-4, 6873-4 #### [facility] ([id number]) [address] [place] [address] #### HA1C #### [facility] ([id number]) [address], [address] [place] [address] RBC COUNT 5.41 X10E12/L Normal 4.10-5.70 [facility] Comment on above: Performed By: #### P INR, 18290-4, 81717-9, CBCA, 98434-3, CMP, 4548-4, 6873-4 #### [facility] ([id number]) [address] [place] [address] #### HA1C #### [facility] ([id number]) [address] [place] [address], [address] [place] [address] WBC (Bld) [#/Vol] 4.3 10*3/uL Normal 4.0-11.0 [facility] Comment on above: Performed By: #### P INR, 60795-5, 60483-1, CBCA, 34624-7, CMP, 4548-4, 6873-4 #### [facility] ([id number]) [address] [place] [address] #### HA1C #### [facility] ([id number]) [address] [place] [address], [address] [address] COMPREHENSIVE METABOLIC PANE [facility] 10-26-2023 Albumin [Mass/Vol] 4.3 g/dL Normal 3.2-5.3 [facility] Comment on above: Performed By: #### P INR, 97916-8, 51467-4, CBCA, 28923-5, CMP, 4548-4, 6873-4 #### [facility] ([id number]) [address] [place] [address] #### HA1C #### [facility] ([id number]) [address] [place] [address], [address] [place] [address] ALP [Catalytic activity/Vol] 73 U/L Normal 39-130 [facility] Comment on above: Performed By: #### P INR, 06243-5, 31646-3, CBCA, 75024-7, CMP, 4548-4, 6873-4 #### [facility] ([id number]) [address] [place] [address] #### HA1C #### [facility] ([id number]) [address], [address] [place] [address] ALT [Catalytic activity/Vol] 25 U/L Normal 0-40 [facility] Comment on above: Performed By: #### P INR, 83935-3, 39258-2, CBCA, 36819-2, CMP, 4548-4, 6873-4 #### [facility] ([id number]) [address] [place] [address] #### HA1C #### [facility] ([id number]) [address], [address] [place] [address] Anion gap [Moles/Vol] 10 mmol/L Normal 5-15 [facility] Comment on above: Performed By: #### P INR, 57781-4, 41945-1, CBCA, 42273-8, CMP, 4548-4, 6873-4 #### [facility] ([id number]) [address] [place] [address] #### HA1C #### [facility] ([id number]) [address], [address] [place] [address] AST [Catalytic activity/Vol] 19 U/L Normal 0-41 [facility] Comment on above: Performed By: #### P INR, 77293-2, 95617-5, CBCA, 46579-5, CMP, 4548-4, 6873-4 #### [facility] ([id number]) [address] [place] [address] #### HA1C #### [facility] ([id number]) [address], [address] [place] [address] Bilirubin [Mass/Vol] 0.8 mg/dL Normal 0.3-1.2 [facility] Comment on above: Performed By: #### P INR, 66602-6, 22344-9, CBCA, 10197-4, CMP, 4548-4, 6873-4 #### [facility] ([id number]) [address] [place] [address] #### HA1C #### [facility] ([id number]) [address], [address] [place] [address] Calcium [Mass/Vol] 9.3 mg/dL Normal 8.5-10.5 [facility] Comment on above: Performed By: #### P INR, 57504-9, 19978-8, CBCA, 99163-9, CMP, 4548-4, 6873-4 #### [facility] ([id number]) [address] [place] [address] #### HA1C #### [facility] ([id number]) [address], [address] [place] [address] Chloride [Moles/Vol] 94 mmol/L Low 98-109 [facility] Comment on above: Performed By: #### P INR, 61230-9, 82000-5, CBCA, 06061-6, CMP, 4548-4, 6873-4 #### [facility] ([id number]) [address] [place] [address] #### HA1C #### [facility] ([id number]) [address], [address] [place] [address] CO2 [Moles/Vol] 26 mmol/L Normal 22-32 [facility] Comment on above: Performed By: #### P INR, 16699-3, 38866-4, CBCA, 28720-4, CMP, 4548-4, 6873-4 #### [facility] ([id number]) [address] [place] [address] #### HA1C #### [facility] [facility] ([id number]) [address], [address] [place] [address] Creatinine [Mass/Vol] 1.06 mg/dL Normal 0.70-1.20 [facility] Comment on above: Result Comment: METH OD TRACEABLE TO IDMS STANDARD Performed By: #### P INR, 92587-0, 74342-1, CBCA, 81263-7, CMP, 4548-4, 6873-4 #### [facility] ([id number]) [address] [place] [address] #### HA1C #### [facility] ([id number]) [address], [address] [place] [address] GFR/1.73 sq M.predicted among non-blacks MDRD (S/P/Bld) [Vol rate/Area] 75 mL/min/{1.73_m2} Normal >59 [facility] Comment on above: Result Comment: Reported eGFR is based on the CKD-EPI 2020 equation that does not use a race coefficient. Performed By: #### P INR, 49570-9, 02558-1, CBCA, 29152-1, CMP, 4548-4, 6873-4 #### [facility] ([id number]) [address] [place] [address] 37874 #### HA1C #### [facility] ([id number]) [address], [address] [place] [address] Glucose [Mass/Vol] 453 mg/dL Critically high 65-99 [facility] Comment on above: Performed By: #### P INR, 96968-8, 31346-1, CBCA, 92668-6, CMP, 4548-4, 6873-4 #### [facility] ([id number]) [address] [place] [address] 74172 #### HA1C #### [facility] ([id number]) [address], [address] [place] [address] Potassium [Moles/Vol] 4.5 mmol/L Normal 3.5-5.0 [facility] Comment on above: Performed By: #### P INR, 77155-4, 76694-1, CBCA, 17299-3, CMP, 4548-4, 6873-4 #### [facility] ([id number]) [address] [place] [address] #### HA1C #### [facility] ([id number]) [address] [facility] [place] [address] Protein [Mass/Vol] 7.2 g/dL Normal 6.0-8.0 [facility] Comment on above: Performed By: #### P INR, 09842-8, 41003-7, CBCA, 42848-5, CMP, 4548-4, 6873-4 #### [facility] ([id number]) [address] [place] [address] #### HA1C #### [facility] ([id number]) [address], [address] [place] [address] Sodium [Moles/Vol] 130 mmol/L Low 134-146 [facility] Comment on above: Performed By: #### P INR, 30477-3, 17309-1, CBCA, 71875-7, CMP, 4548-4, 6873-4 #### [facility] ([id number]) [address] [place] [address]64[address] #### HA1C #### [facility] ([id number]) [address], [address] [place] [address] Urea nitrogen [Mass/Vol] 29 mg/dL High 5-27 [facility] Comment on above: Performed By: #### P INR, 16286-1, 80460-9, CBCA, 87695-2, CMP, 4548-4, 6873-4 #### [facility] ([id number]) [address] [facility], [place] [address] #### HA1C #### [facility] ([id number]) [address] [facility], [address] [place] [address] CT BRAIN WO CONTon 3 CT BRAIN [...] Denney MD on 10/26/2023 6:42 PM Normal [facility] DRUG SCREEN, URINEon 023 AMPHETAMINE/METHAMP Negative Normal NEG [facility] Comment on above: Result Comment: AMPH /METH screening cut off = 1000 ng/mL Performed By: #### P INR, 43660-3, 69903-7, CBCA, 89427-7, CMP, 4548-4, 6873-4 #### [facility] ([id number]) [address] [place] [address]75 #### HA1C #### [facility] ([id number]) [address], [address] [place] [address] BARBITURATES Negative Normal NEG [facility] Comment on above: Result Comment: Elsie iturates screening cut off value = 200 ng/mL Performed By: #### P INR, 78944-8, 48637-8, CBCA, 33193-7, CMP, 4548-4, 6873-4 #### [facility] ([id number]) [address] [place] [address] 87567 #### HA1C #### [facility] ([id number]) [address] [facility], [address] [place] [address] BENZODIAZEPINES Negative Normal NEG [facility] Comment on above: Result Comment: James odiazepines screening cut off value = 200 ng/mL Performed By: #### P INR, 73117-1, 81396-6, CBCA, 06181-2, CMP, 4548-4, 6873-4 #### [facility] ([id number]) [address] [place] [address]85 #### HA1C #### [facility] ([id number]) [address] [facility] [place] [address] CANNABINOIDS Negative Normal NEG [facility] Comment on above: Result Comment: Shawn abinoids/THC screening cut off value = 50 ng/mL Performed By: #### P INR, 39757-0, 26504-2, CBCA, 22535-2, CMP, 4548-4, 6873-4 #### [facility] ([id number]) [address] [place] [address] 8[address] #### HA1C #### [facility] ([id number]) [address] [facility], [address] [place] [address] COCAINE METABOLITE Negative Normal NEG [facility] Comment on above: Result Comment: Coca ine screening cut off value = 300 ng/mL Performed By: #### P INR, 54883-6, 05109-8, CBCA, 84703-4, CMP, 4548-4, 6873-4 #### [facility] ([id number]) [address] [place] [address] #### HA1C #### [facility] ([id number]) [address] [facility], [address] [place] [address] ECSTASY Negative Normal NEG [facility] Comment on above: Result Comment: Ecst asy screening cut off value = 500 ng/mL This report is intended for use in clinical monitoring or management of patients. Performed By: #### P INR, 82785-4, 69483-3, CBCA, 52956-0, CMP, 4548-4, 6873-4 #### [facility] ([id number]) [address] [place] [address] 87834 #### HA1C #### [facility] ([id number]) [address] [place] [address], [address] [place] [address] METHADONE Negative Normal [facility] Comment on above: Result Comment: Meth adone screening cut off value = 300 ng/mL. Performed By: #### P INR, 64400-6, 73109-7, CBCA, 48970-6, CMP, 4548-4, 6873-4 #### [facility] ([id number]) [address] [place] [address] 61824 #### HA1C #### [facility] ([id number]) [address] [place] [address], [address] [place] [address] OPIATES Negative Normal NEG [facility] Comment on above: Result Comment: Opia yanira screening cut off value = 300 ng/mL NOTE: This test is used for the detection of codeine, hydrocodone (>1000 ng/mL), morphine and hydromorphone (>900 ng/mL) in urine. Performed By: #### P INR, 04168-6, 52035-7, CBCA, 38782-8, CMP, 4548-4, 6873-4 #### [facility] ([id number]) [address] [place] [address] 06589 #### HA1C #### [facility] ([id number]) [address] [place] [address], [address] [place] [address] OXYCODONE Negative Normal NEG [facility] Comment on above: Result Comment: Oxyc odone screening cut off value = 300 ng/mL NOTE: This test is used for the detection of oxycodone and oxymorphone in urine. Performed By: #### P INR, 80225-4, 92442-2, CBCA, 89140-8, CMP, 4548-4, 6873-4 #### [facility] ([id number]) [address] [place] [address] 01998 #### HA1C #### [facility] ([id number]) [address] [place] [address], [address] [place] [address] PHENCYCLIDINE Negative Normal NEG [facility] Comment on above: Result Comment: Phen cyclidine screening cut off value = 25 ng/mL Performed By: #### P INR, 41039-3, 40539-7, CBCA, 69665-9, CMP, 4548-4, 6873-4 #### [facility] ([id number]) [address] [place] [address] 00192 #### HA1C #### [facility] ([id number]) [address] [place] [address], [address] [place] [address] Glucose Glucometer (dC) [M ass/Vol]on 10-26-2023 Glucose [Mass/Vol] 286 mg/dL High 65-99 [facility] Glucose [Mass/Vol] 385 mg/dL High 65-99 [facility] HA1C CONFIRMATION - NO CHARG Ian 10-26-2023 HbA1c (Bld) [Mass fraction] 15.3 % High <=5.6 [facility] Comment on above: Result Comment: NOTE INTERPRETIVE INFORMATION: Hemoglobin A1c HbA1c values of 5.7-6.4 percent indicate an increased risk for developing diabetes mellitus. HbA1c values greater than or equal to 6.5 percent are diagnostic of diabetes mellitus. For diagnosis of diabetes in individuals without unequivocal hyperglycemia, results should be confirmed by repeat testing. Performed By: #### P INR, 34729-5, 52994-4, CBCA, 18631-4, CMP, 4548-4, 6873-4 #### [facility] ([id number]) [address] [place] [address] 80988 #### HA1C #### [facility] ([id number]) [address] [place] [address], [address] [place] [address] HGB A1C (GLYCO-HGB)on 2022 AVERAGE GLUCOSE >398 Normal [facility] Comment on above: Performed By: #### P INR, 63171-3, 14447-7, CBCA, 81621-7, CMP, 4548-4, 6873-4 #### [facility] ([id number]) [address] [place] [address] 56213 #### HA1C #### [facility] ([id number]) [address] [place] [address], [address] [place] [address] HbA1c (Bld) [Mass fraction] % High 4.4-5.6 [facility] Comment on above: Result Comment: NOTE ADA Guidelines Result HgbA1c Normal : less than 5.7 % Prediabetes : 5.7 % to 6.4 % Diabetes : > 6.4 % Use with caution in patients with abnormal hemoglobin variants as the half-life of red blood cells and in vivo glycation rates are affected. Performed By: #### P INR, 16657-2, 63080-4, CBCA, 01789-6, CMP, 4548-4, 6873-4 #### [facility] ([id number]) [address] [place] [address] 69013 #### HA1C #### [facility] ([id number]) [address] [facility] [place] [address] HbA1c (Bld) [Mass fraction]o n 10-26-2023 Glucose [Mass/Vol] 392 mg/dL Normal [facility] Comment on above: Result Comment: NOTE Performed By: [employer] [address] [place] [address] Reverberatory Skimmer: Aramis Taylor MD, PhD CLIA Number: [id number] Performed By: #### P INR, 02472-6, 60974-3, CBCA, 69869-7, CMP, 4548-4, 6873-4 #### [facility] ([id number]) [address] [place] [address] 55498 #### HA1C #### [facility] ([id number]) [address] [facility] [place] [address] MAGNESIUMon 10-26-2023 Magnesium [Mass/Vol] 1.6 mg/dL Low 1.8-2.6 [facility] Comment on above: Performed By: #### P INR, 66556-7, 23378-3, CBCA, 18101-6, CMP, 4548-4, 6873-4 #### [facility] ([id number]) [address] [place] [address] 08827 #### HA1C #### [facility] ([id number]) [address] [facility] [place] [address] PROTIME AND INRon 10-26-2023 INR Coag (PPP) [Relative time] 1.0 {INR} Normal 0.8-1.1 [facility] Comment on above: Performed By: #### P INR, 67759-2, 22886-5, CBCA, 08537-8, CMP, 4548-4, 6873-4 #### [facility] ([id number]) [address] [place] [address] 68097 #### HA1C #### [facility] ([id number]) [address], [address] [place] [address] PT Coag (PPP) [Time] 11.4 s Normal 9.8-13.2 [facility] Comment on above: Result Comment: NEW REFERENCE RANGE Performed By: #### P INR, 95636-1, 08630-3, CBCA, 32223-6, CMP, 4548-4, 6873-4 #### [facility] ([id number]) [address] [place] [address] 57407 #### HA1C #### [facility] ([id number]) [address] [facility] [place] [address] TROPONIN Ion 10-26-2023 Troponin I.cardiac [Mass/Vol] 0.01 ng/mL Normal 0.00-0.04 [facility] Comment on above: Performed By: #### P INR, 47802-7, 67406-7, CBCA, 80352-9, CMP, 4548-4, 6873-4 #### [facility] ([id number]) [address] [place] [address] 68973 #### HA1C #### [facility] ([id number]) [address] [facility] [place] [address] URN MACROSCOPIC NURon 2022 BILIRUBIN ALLYN Negative Normal NEG [facility] Comment on above: Performed By: #### P INR, 78001-7, 00533-7, CBCA, 88866-5, CMP, 4548-4, 6873-4 #### [facility] ([id number]) [address] [place] [address] 27644 #### HA1C #### [facility] ([id number]) [address] [facility], [address] [place] [address] BLOOD/HGB ALLYN Trace Abnormal NEG [facility] Comment on above: Performed By: #### P INR, 76069-3, 97280-7, CBCA, 10164-8, CMP, 4548-4, 6873-4 #### [facility] ([id number]) [address] [place] [address] 42103 #### HA1C #### [facility] ([id number]) [address] [facility], [address] [place] [address] GLUCOSE ALLYN >=1000 Abnormal NEG [facility] Comment on above: Performed By: #### P INR, 69058-3, 63172-3, CBCA, 78282-2, CMP, 4548-4, 6873-4 #### [facility] ([id number]) [address] [place] [address] 90379 #### HA1C #### [facility] ([id number]) [facility], [address] [place] [address] KETONES ALLYN 40 mg/dL Abnormal NEG [facility] Comment on above: Performed By: #### P INR, 15089-7, 42539-3, CBCA, 63192-5, CMP, 4548-4, 6873-4 #### [facility] ([id number]) [address] [place] [address] 21921 #### HA1C #### [facility] ([id number]) [facility], [address] [place] [address] LEUKOCYTE ESTERASE ALLYN Negative Normal NEG [facility] Comment on above: Performed By: #### P INR, 60868-7, 59038-4, CBCA, 75733-1, CMP, 4548-4, 6873-4 #### [facility] ([id number]) [address] [place] [address] 87374 #### HA1C #### [facility] ([id number]) [address], [address] [place] [address] NITRITE ALLYN Negative Normal NEG [facility] Comment on above: Performed By: #### P INR, 28278-5, 44192-2, CBCA, 83802-0, CMP, 4548-4, 6873-4 #### [facility] ([id number]) [address] [place] [address] 42437 #### HA1C #### [facility] ([id number]) [address] [facility] [place] [address] PH ALLYN 5.5 Normal 5.0-8.5 [facility] Comment on above: Performed By: #### P INR, 53865-9, 63443-1, CBCA, 05209-3, CMP, 4548-4, 6873-4 #### [facility] ([id number]) [address] [place] [address] 87206 #### HA1C #### [facility] ([id number]) [address], [address] [place] [address] PROTEIN ALLYN Negative Normal NEG [facility] Comment on above: Performed By: #### P INR, 42234-6, 50203-5, CBCA, 40660-4, CMP, 4548-4, 6873-4 #### [facility] ([id number]) [address] [place] [address] 06305 #### HA1C #### [facility] ([id number]) [address], [address] [place] [address] SPECIFIC GRAVITY ALLYN 1.010 Normal 1.003-1.035 [facility] Comment on above: Performed By: #### P INR, 16577-8, 64333-5, CBCA, 93834-5, CMP, 4548-4, 6873-4 #### [facility] ([id number]) [address] [place] [address] 95393 #### HA1C #### [facility] ([id number]) [address] [facility] [place] [address] UROBILINOGEN ALLYN 0.2 eu/dL Normal <1.1 [facility] Comment on above: Performed By: #### P INR, 04371-6, 29528-6, CBCA, 24230-4, CMP, 4548-4, 6873-4 #### [facility] ([id number]) [address] [place] [address] 22929 #### HA1C #### [facility] ([id number]) [address] [facility] [place] [address] VENOUS BLOOD GASon 3 MICHELLE'S TEST Normal [facility] Comment on above: Performed By: #### V BG #### [facility] ([id number]) [address] [place] [address] 11863 Base excess Calc (Bld) [Moles/Vol] 0.0 mmol/L Normal 0.0-2.0 [facility] Comment on above: Performed By: #### V BG #### [facility] ([id number]) [address] [place] [address]86 Body temperature 98.6 [degF] Normal 37.0 [facility] Comment on above: Performed By: #### V BG #### [facility] ([id number]) [address] [place] [address] HCO3 (Bld) [Moles/Vol] 25.3 mmol/L High 20.0-24.0 [facility] Comment on above: Performed By: #### V BG #### [facility] ([id number]) [address] [place] [address] Oxygen saturation in Blood 73.0 % Low >80.0 [facility] Comment on above: Performed By: #### V BG #### [facility] ([id number]) [address] [place] [address] OXYGEN SOURCE [employer] Normal [facility] Comment on above: Performed By: #### V BG #### [facility] ([id number]) [address] [place] [address] 67[address] PCO2, VENOUS 41.3 MMHG Normal 35-50 [facility] Comment on above: Performed By: #### V BG #### [facility] ([id number]) [address] [place] [address] PH, VENOUS 7.396 Normal 7.320-7.420 [facility] Comment on above: Performed By: #### V BG #### [facility] ([id number]) [address] [place] [address]31 PO2, VENOUS 39 MMHG Normal 30-50 [facility] Comment on above: Performed By: #### V BG #### [facility] ([id number]) [address] [place] [address] [place] [address] SAMPLE SITE N/A Normal [facility] Comment on above: Performed By: #### V BG #### [facility] ([id number]) [address] [place] [address] SAMPLE TYPE VENOUS Normal [facility] Comment on above: Performed By: #### V BG #### [facility] ([id number]) [address] [place] [address] XR CHEST 1 VWon 10-26-2023 XR CHEST [...] Keyes MD on 10/26/2023 6:36 PM Normal [facility] aPTT Coag (PPP) [Time]on aPTT Coag (Bld) [Time] 34 s Normal 26-[address] [facility] Comment on above: Result Comment: NEW REFERENCE RANGE Performed By: #### P INR, 22192-6, 11367-4, CBCA, 72121-5, CMP, 4548-4, 6873-4 #### [facility] ([id number]) [address] [place] [address], [place] [address] #### HA1C #### [facility] ([id number]) [address] [place] [address], [address] [place] [address] Vital Signs Date Time Vital Sign Value Performing Clinician Facility 03-31-2024 10:20-0400 Body height 180.34 cm [facility] 03-31-2024 10:20-0400 Body mass index (BMI) [Ratio] 34.9 kg/m2 [facility] 03-31-2024 10:20-0400 Body weight 113.53 kg [facility] 03-31-2024 10:20-0400 Diastolic blood pressure 73 mm[Hg] [facility] 03-31-2024 10:20-0400 Heart rate 79 /min [facility] 03-31-2024 10:20-0400 Respiratory rate 16 /min [facility] 03-31-2024 10:20-0400 Systolic blood pressure 149 mm[Hg] [facility] 03-26-2024 10:56-0400 Body height 180.34 cm [facility] 03-26-2024 10:56-0400 Body mass index (BMI) [Ratio] 34.9 kg/m2 [facility] 03-26-2024 10:56-0400 Body weight 113.62 kg [facility] 03-26-2024 10:56-0400 Diastolic blood pressure 81 mm[Hg] [facility] 03-26-2024 10:56-0400 Heart rate 86 /min [facility] 03-26-2024 10:56-0400 Respiratory rate 20 /min [facility] 03-26-2024 10:56-0400 Systolic blood pressure 157 mm[Hg] [facility] 01-23-2024 10:33-0400 Body height 180.34 cm [facility] 01-23-2024 10:33-0400 Body mass index (BMI) [Ratio] 36.1 kg/m2 [facility] 01-23-2024 10:33-0400 Body weight 117.65 kg [facility] 01-23-2024 10:33-0400 Diastolic blood pressure 69 mm[Hg] [facility] 01-23-2024 10:33-0400 Heart rate 71 /min [facility] 01-23-2024 10:33-0400 Respiratory rate 20 /min [facility] 01-23-2024 10:33-0400 Systolic blood pressure 159 mm[Hg] [facility] 12-30-2023 10:35-0500 Body height 177.8 cm Klaus Yeboah MD Work Phone: [facility] 12-30-2023 10:35-0500 Body mass index (BMI) [Ratio] 35.01 kg/m2 Klaus Yeboah MD Work Phone: [facility] 12-30-2023 10:35-0500 Body weight 110.68 kg Klaus Yeboah MD Work Phone: [facility] 12-11-2023 11:41-0500 Body height 177.8 cm Alexis Rojas MD Work Phone: [facility] [employer] 12-11-2023 11:41-0500 Body mass index (BMI) [Ratio] 35.01 kg/m2 Alexis Rojas MD Work Phone: [facility] [employer] 12-11-2023 11:41-0500 Body weight 110.68 kg Alexis Rojas MD Work Phone: [facility] [employer] 12-11-2023 11:41-0500 Diastolic blood pressure 73 mm[Hg] Alexis Rojsa MD Work Phone: [facility] [employer] [facility] 12-11-2023 11:41-0500 Heart rate 90 /min Alexis Rojas MD Work Phone: [facility] [employer] 12-11-2023 11:41-0500 Systolic blood pressure 126 mm[Hg] Alexis Rojas MD Work Phone: [facility] [employer] [facility] 11-26-2023 10:45-0500 Body height 180.34 cm Vinnie Ball Other [facility] 11-26-2023 10:45-0500 Body mass index (BMI) [Ratio] 35.31 kg/m2 Vinnie Ball Other [facility] Other 11-26-2023 10:45-0500 Body weight 114.85 kg Vinnie Ball Other [facility] Other 11-26-2023 10:45-0500 Body weight 114.84 kg [facility] 11-26-2023 10:45-0500 Diastolic blood pressure 80 mm[Hg] Vinnie Ball Other [facility] 11-26-2023 10:45-0500 Respiratory rate 16 /min Vinnie Ball Other [facility] Other 11-26-2023 10:45-0500 Systolic blood pressure 132 mm[Hg] Vinnie Ball Other [facility] Encounters Encounter Date Encounter Type Care Provider Facility Start: 05-27-2024 End: 06-01-2024 Evaluation and management of inpatient NAPLES Santos [facility] Start: 05-13-2024 End: 05-13-2024 ambulatory VINNIE Graham [facility] Start: 05-12-2024 End: 05-13-2024 Emergency department patient visit BROOK SIMMS [facility] Start: 04-13-2024 End: 04-13-2024 ambulatory VINNIE Santos [facility] Start: 04-10-2024 End: 04-21-2024 Evaluation and management of inpatient MIRNA BAJWA [facility] Start: 04-09-2024 End: 04-11-2024 Emergency department patient visit YUDELKA PARIKH [facility] Start: 04-09-2024 End: 04-10-2024 ambulatory [facility] Start: 03-31-2024 End: 03-31-2024 ambulatory [facility] Work Phone: Start: 03-31-2024 End: 03-31-2024 Patient encounter procedure [facility] Work Phone: Start: 03-29-2024 End: 04-26-2024 ambulatory [facility] Start: 03-26-2024 End: 03-26-2024 ambulatory [facility] Work Phone: Start: 03-26-2024 End: 03-26-2024 Patient encounter procedure [facility] Work Phone: Start: 02-13-2024 End: 03-27-2024 ambulatory [facility] Start: 02-12-2024 End: 02-12-2024 ambulatory [facility] Start: 02-04-2024 End: 02-04-2024 ambulatory JASON RODRIGUEZ Not Available Start: 01-23-2024 End: 01-23-2024 ambulatory [facility] Work Phone: Start: 01-23-2024 End: 01-23-2024 Patient encounter procedure [facility] Work Phone: Start: 12-30-2023 End: 12-30-2023 ambulatory KLAUS YEBOAH [facility] Start: 12-30-2023 End: 12-30-2023 Office outpatient new 30 minutes Klaus Yeboah MD Work Phone: [facility] Comment on above: Arthritis of right k nee (Primary Dx); Right knee pain, unspecified chronicity Start: 12-11-2023 End: 12-11-2023 ambulatory [facility] Start: 12-11-2023 End: 12-11-2023 Office outpatient visit 25 minutes Alexis Rojas MD Work Phone: [facility] Comment on above: Sequelae, post-strok e (Primary Dx); Cerebrovascular accident (CVA) due to thrombosis of precerebral artery ([facility]); Type 2 diabetes mellitus with hyperglycemia, with long-term current use of insulin ([facility]); Transient alteration of awareness; Mixed hyperlipidemia; Blurred vision; Gait instability Start: 12-01-2023 End: 12-01-2023 ambulatory Vinnie Garza Other [facility] Other Start: 12-01-2023 Telephone encounter Vinnie SUAZO [facility] Start: 11-26-2023 End: 11-26-2023 ambulatory Vinnie Garza Other [facility] Other Start: 11-26-2023 Office outpatient vi sit 25 minutes Vinnie Mukesh [facility] Start: 11-26-2023 Telephone encounter Vinnie Mukesh LAKEISHA G [facility] Start: 11-26-2023 End: 11-26-2023 Patient encounter procedure [facility] Start: 11-17-2023 Telephone encounter Alysha Prasad [facility] Start: 11-05-2023 End: 11-05-2023 ambulatory VINNIE E MUKESH [facility] Start: 10-31-2023 Orders Only Alysha [place] RN [facility] Comment on above: Cerebrovascular acci dent (CVA) due to thrombosis of precerebral artery (CMS-HCC) (Primary Dx); Other cerebrovascular vasospasm and vasoconstriction Start: 10-28-2023 End: 10-30-2023 ambulatory [facility] Start: 10-28-2023 End: 10-30-2023 ambulatory [facility] Start: 10-28-2023 End: 10-30-2023 ambulatory HAMMAD PATEL [facility] Start: 10-26-2023 End: 10-30-2023 Emergency department patient visit [facility] Start: 10-26-2023 End: 10-29-2023 Evaluation and management of inpatient [facility] Start: 05-09-[address] VINNIE Mcgraw ty:H1 Start: 11-27-[address] VINNIE Mcgraw ty:H1 Procedures Date Procedure Procedure Detail Performing Clinician Start: 02-12-2024 Follow-up visit Follow-up KLAUS YEBOAH Start: 12-11-2023 Adult depression screening assessment Alexis Rojas MD Work Phone: Start: 05-02-2016 Microalbumin [Mass/volume] in Urine by Test strip Alysha [place] RN History of operative procedure on knee History of arthroplasty of left knee Plan of Treatment Date Care Activity Detail Author Start: 12-29-2024 Adult BMI Screening Adult BMI Screen ing [facility] Start: 12-29-2024 Tobacco Screening Tobacco Screening [facility] Start: 12-11-2024 Adult BMI Screening Adult BMI Screen ing [facility] Start: 12-11-2024 Depression Screening Depression Scre ening [facility] Start: 12-11-2024 Tobacco Screening Tobacco Screening [facility] Start: 10-29-2024 Adult BMI Screening Adult BMI Screen ing [facility] Start: 10-26-2024 Tobacco Screening Tobacco Screening [facility] Start: 03-11-2024 End: 03-11-2024 Patient encounter procedure 03/11/2024 3:30 PM EDT Office Visit [facility] [address] [place] [phone] Alexis Rojas MD [address] [place] [address], [address] [place] [phone] [facility] Start: 12-11-2023 End: 12-11-2023 Patient encounter procedure 12/11/2023 11:30 AM EST Office Visit [facility] [address] [place] [phone] Alexis Rojas MD [address] [place] [address], [address] [place] [phone] [facility] Start: 12-04-2023 End: 12-04-2023 Patient encounter procedure 12/04/2023 9:00 AM EST Office Visit [facility] [address] [place] [phone] Ally Easton MD [address] [place] [address] [facility] Start: 10-31-2023 End: 10-31-2024 Event Monitor (In Office) MELANY DRAKE Work Phone: Comment on above: Expected: 10/31/2023 , Expires: 10/31/2024 Start: 06-27-2023 Influenza vaccination Influenza Vacc ine [facility] Start: 2018 Fall Risk Screening Fall Risk Screen ing [facility] Start: 05-02-2017 Urine screening for protein Urine Microalbumin [facility] Start: 2003 Administration of varicella zoster vaccine Zoster (Shingles) Vaccine (1 of 2) [facility] Start: 1972 DTaP,Tdap and Td Vaccines (1 - Tdap) DTaP,Tdap and Td Vaccines (1 - Tdap) [facility] Start: 1971 Adult BMI Follow Up Plan Adult BMI Follow Up Plan [facility] Start: 1971 Diabetic foot examination Diabetic Foot Exam [facility] Start: 1965 Depression Screening Depression Scre ening [facility] Start: 1953 Glaucoma screening [facility]abetic [facility] Start: [facility] Medicare Annual Well ness Visit Medicare Annual Well[facility] Start: [facility] Tobacco Counseling Tobacco Counselin g [facility] End: 12-29-2024 Large Joint Injection/Arthrocentesis - [place] Large Joint Injection/Arthrocentesi s - [place] Procedures Routine Right knee pain, unspecified chronicity Arthritis of right knee 1 Occurrences starting 12/30/2023 until 12/29/2024 [employer] Work Phone: Comment on above: 1 Occurrences starti ng 12/30/2023 until 12/29/2024 End: 12-29-2024 Nicotine screen, urine Nicotine screen, urine Lab Routine Arthritis of right knee 1 Occurrences starting 12/30/2023 until 12/29/2024 [facility] Comment on above: 1 Occurrences starti ng 12/30/2023 until 12/29/2024 [facility] Immunizations Immunization Date Immunization Notes Care Provider Fortino rouse 07-08-2018 influenza virus vaccine, split virus (incl. purified surface antigen) Vinnie Garza Other [facility] Other 07-08-2018 influenza virus vaccine, unspecified formulation [facility] Payers Date Payer Category Payer Medicare AETNA MEDICARE A ETNA MEDICARE PLAN (PPO) [id number] 2021-Present [phone] [address] [place] [address] [id number] 2021 Medicare [id number] 1959 Self-pay 1953 Unknown [id number] 2.16.840.1.592999.3.579.2.593 1953 Unknown [id number] 2.16.840.1.633589.3.579.2.593 1953 Unknown [id number] 2.16.840.1.726181.3.579.2.1259 1953 Unknown [id number] 2.16.840.1.778839.3.579.2.1286 1953 Unknown [id number] 2.16.840.1.334114.3.579.2.1286 1953 Unknown [id number] 2.16.840.1.895262.3.579.2.1286 1953 Unknown [id number] 2.16.840.1.060299.3.579.2.128 1953 Unknown [id number] 2.16.840.1.555817.3.579.2.128 1953 Unknown [id number] 2.16.840.1.434338.3.579.2.128 1953 Unknown [id number] 2.16.840.1.483767.3.579.2.1286 1953 Unknown [id number] 2.16.840.1.258396.3.579.2.1286 1953 Unknown [id number] 2.16.840.1.856296.3.579.2.1286 1953 Unknown [id number] 2.16.840.1.619086.3.579.2.1286 1953 Unknown [id number] 2.16.840.1.371444.3.579.2.1286 1953 Unknown [id number] 2.16.840.1.508978.3.579.2.1286 1953 Unknown [id number] 2.16.840.1.068629.3.579.2.1286 1953 Unknown [id number] 2.16.840.1.783442.3.579.2.1286 1953 Unknown [id number] 2.16.840.1.476907.3.579.2.1285 1953 Unknown [id number] 2.16.840.1.790400.3.579.2.1285 1953 Unknown [id number] 2.16.840.1.183184.3.579.2.1285 1953 Unknown [id number] 2.16.840.1.731834.3.579.2.1285 1953 Unknown [id number] 2.16.840.1.126615.3.579.2.1285 1953 Unknown [id number] 2.16.840.1.773651.3.579.2.1285 1953 Unknown [id number] 2.16.840.1.247406.3.579.2.1285 1953 Unknown [id number] 2.16.840.1.165183.3.579.2.1285 1953 Unknown [id number] 2.16.840.1.257734.3.579.2.1285 1953 Unknown [id number] 2.16.840.1.539781.3.579.2.1285 1953 Unknown [id number] 2.16.840.1.882155.3.579.2.1285 1953 Unknown [id number] 2.16.840.1.808982.3.579.2.1285 1953 Unknown [id number] 2.16.840.1.031225.3.579.2.1285 1953 Unknown [id number] 2.16.840.1.731126.3.579.2.1285 1953 Unknown [id number] 2.16.840.1.186019.3.579.2.128 Medicare [id number] 2.16.840.1.139463.19 Unknown [id number] 2.16.840.1.768377.19 Social History Date Type Detail Facility Start: 10-26-2023 Tobacco smoking stat NHIS Smokes tobacco daily [facility] History of tobacco use Cigarette Smoker P [facility] Start: 10-26-2023 Tobacco use and exposure Smoke less tobacco non-user [facility] Start: 10-26-2023 End: 12-30-2023 Alcohol intake Ex-drinker (finding) [facility] Start: 12-07-2020 End: 10-26-2023 History of Social function [facility] Start: 12-07-2020 End: 10-26-2023 Tobacco use panel [facility] Housing Instability Unknown [facility] Start: 1955 Sex Assigned At Not on file P [facility] Start: 1955 Sex Assigned At Male [facility] Goals Date Patient Goal Desired Activity /State Personal health goal Comment on above: Formatting of this n ote might be different from the original. Evaluation of progress towards goal: In progress: DC to home with home health, support from dtr and new 2-wheeled walker. Clinical Notes 11-17-2023 to 12-30-2023 Klaus Yeboah MD - 12/30/2023 10:15 AM Ronaldo Rojas MD - 12/11/2023 11:30 AM EST Note Date & Type Note Facility 12-30-2023 History of Present illness Narrative Images from the original note were not included. Vashti Rivera 1955 [id number] Last encounter with me: Visit date not [...] No prior surgery, diabetic Xr today HPI Vashti Rivera is a 68 y.o. year old [...] Medical History: Diagnosis Date Arthritis Cataract Diabetes ([facility]) Diabetes mellitus type 2, controlled ([facility]) Fractures Past Surgical History: Procedure Laterality Date [...] urine; Future PLAN: I examined and treated Vashti Rivera at his appointment today. I discussed [...] His daughter was here as well. I, Klaus Yeboah MD, personally performed the face to face evaluation on this patient. I discussed with the patient and confirmed the accuracy and completeness of the aforementioned history prepared by the [place] practice provider, and I personally performed the clinical examination of the patient. I discussed the treatment plan with the patient. I have updated the above note prior to signing to reflect my evaluation of the patients condition and treatment plan. Other significant notes are as follows: Vashit is a very nice 68 y.o. male [...] this visit we will get hip xrays.. Klaus Yeboah MD Adult Reconstruction [facility] [address] [place] [address], [address] W: [phone] F: [phone] documented in this encounter [facility] 12-11-2023 History of Present illness Narrative Reason for visit: Post stroke care, hospital follow-up. HPI: Vashti Rivera is a 68 y.o. male right-handed, [...] Medical History: Diagnosis Date Arthritis Cataract Diabetes ([facility]) Diabetes mellitus type 2, controlled ([facility]) Fractures Past Surgical History Past Surgical History: [...] hyperglycemia, with long-term current use of insulin ([facility]) Cerebrovascular accident (CVA) due to thrombosis ([facility]) Mixed hyperlipidemia Sequelae, post-stroke Gait instability Status [...] in 3 months. documented in this encounter [facility] 12-01-2023 Evaluation note Encounter Date Diagnosis Assessment Notes Nov, Type 2 diabetes mellitus with hyperglycemia (ICD-10 - E11.65) [facility] Other 01-31-2024 Evaluation note* Encounter Date Diagnosis Assessment Notes Treatment Notes Treatment Clinical Notes Oct, Type 2 diabetes mellitus with hyperglycemia (ICD-10 - E11.65) [facility] Other 01-31-2024 Evaluation note* Encounter Date Diagnosis [...] and elevate XR to r/o Fx Oct, [facility] (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 insulin (ICD-10 - Z79.4) Oct, Hx of cerebral infar ction (ICD-10 - Z86.73) [facility] Other 01-22-2024 Miscellaneous Notes* Telephone Encounter - Alysha [place] RN - 11/17/2023 10:06 AM EST From Troy Moeller, This message is in reference to the below patient: Patient Name: VASHTI RIVERA Date of : 1955 This is [...] Patient Services Outbound Team [id number] Telephone encounter Note* Telephone Encounter - Alysha [place] RN - 11/17/2023 10:06 AM EST From Troy Moeller, This message is in reference to the below patient: Patient Name: VASHTI RIVERA Date of : 1955 This is [...] day. Sincerely, Your Patient Services Outbound Team [facility] Diagnosis Cerebrovascular accident (CVA) due to thrombosis of precerebral artery ([facility] Primary Other cerebrovascular vasospasm and vasoconstriction documented in this encounter [facility]* Diagnosis Sequelae, post-stroke- Primary Cerebrovascular accident (CVA) due to thrombosis of precerebral artery ([facility]) Type 2 diabetes mellitus with hyperglycemia, with long-term current use of insulin ([facility]) Transient alteration of awareness Mixed hyperlipidemia Blurred vision Other specified visual disturbances Gait instability Abnormality of gait documented in this encounter [facility]* Diagnosis Arthritis of right knee- Primary Right knee pain, unspecified chronicity Right knee pain, unspecified chronicity documented in this encounter [facility]* Diagnosis Onset Date Resolution Status Cerebral atherosclerosis acu te Cigarette nicotine dependence without complication acute Hypercholesterolemia acute Primary hypertension acute Type 2 diabetes mellitus with hyperglycemia [facility] Work Phone: Evaluation note* Diagnosis Onset Date Resolution Status Cerebral atherosclerosis acu te Cigarette nicotine dependence without complication acute Hypercholesterolemia acute Primary hypertension acute Primary osteoarthritis of right knee acute Type 2 diabetes mellitus with hyperglycemia acute Cerebral atherosclerosis acu te Cigarette nicotine dependence without complication acute Hypercholesterolemia acute Primary hypertension acute Type 2 diabetes mellitus with hyperglycemia [facility] Work Phone: Evaluation note* Diagnosis Onset Date [...] Type 2 diabetes mellitus with hyperglycemia acute [facility] Work Phone: Hisaxbi general Narrative - Reported* Type Description Date Medical History Cerebral atherosclerosis Medical History Hypercholesterolemia Medical History Primary hypertension Medical History Cigarette nicotine dependence wi thout complication Surgical History Tonsillectomy Surgical History Right Shoulder Surgery Surgical History Left TKA 2010 Surgical History Right Knee Arthroscopy x2 Surgical History 2: cataracts Surgical History ORIF Right Wrist Hospitalization History see surgical history [facility] Other InstructionsNot on filedocumented in this encounter [facility] SystemInstructionsNot on filedocumented in this encounter [facility] SystemInstructionsNot on filedocumented in this encounter [facility] SystemReason for visit NarrativeDiabetic education/XR results [facility] Other Summary Purpose Family History No Family [...] Specialty Diagnoses / Procedures Referred By Shanice wood Referred To Contact Diagnoses Cerebrovascular accident (CVA) due to thrombosis of precerebral artery (CMS-HCC) Other cerebrovascular vasospasm and vasoconstriction Procedures Event Monitor (In Office) Kong Gallegos, [employer] [address] [place] [address] [address] [place] [address] Referral ID Status Reason Start Date Expiration Date V isits Requested Visits Authorized [id number] Pending Review 10/31/2023 10/30/2024 1 1 Specialty Diagnoses / Procedures Referred By Shanice wood Referred To Contact Rehabilitation Diagnoses Cerebrovascular accident (CVA) due to thrombosis of precerebral artery ([facility]) Sequelae, post-stroke Gait instability Alexis Rojas MD [address] [facility], [address] [place] [address] Referral ID Status Reason Start Date Expiration Date Visits Requested Visits Authorized [id number] Pending Review Specialty Services Required 12/11/2023 12/10/2024 1 1 Specialty Diagnoses / Procedures Referred By Contac t Referred To Contact Rehabilitation Diagnoses Arthritis of right knee Klaus Yeboah MD [address] [place] [address] Referral ID Status Reason Start Date Expiration Date Visits Requested Visits Authorized [id number] Pending Review Specialty Services Required 12/30/2023 12/29/2024 1 1 Specialty Diagnoses / Procedures Referred By Contac t Referred To Contact Diagnoses Right knee pain, unspecified chronicity Arthritis of right knee Procedures Large Joint Injection/Arthrocentesis - [place] Klaus Yeboah MD [address] [place] [address] [facility] [address] [place] [address] Referral ID Status Reason Start Date Expiration Date V isits Requested Visits Authorized [id number] Pending Review 12/30/2023 12/29/2024 1 1 Chief [...] and content) DATE CREATED AUTHOR 05/16/2022 [facility] pital DATE CREATED AUTHOR AUTHOR'S ORGANIZ ATION 02/05/2024 [facility] EPIC DATE CREATED AUTHOR AUTHOR'S ORGANIZ ATION 02/13/2024 [facility] DATE CREATED AUTHOR AUTHOR'S ORGANIZ ATION 05/17/2024 [facility] DATE CREATED AUTHOR AUTHOR'S ORGANIZ ATION 06/02/2024 [facility] Care Teams (unrecognized sec tion and content) [employer] Relationship Specialty Start Date End Date Vinnie Garza DO [address] [phone] PCP - General Internal Medicine 10/26/23 [employer] Relationship Specialty Start Date End Date Vinnie Garza DO [address] [phone] PCP - General Internal Medicine 10/26/23 [employer] Relationship Specialty Start Date End Date Vinine Garza DO [address] [place] [address] PCP - General Internal Medicine 10/26/23 [employer] Printer Relationship Specialty Start Date End Date Vinnie Garza DO [address] [phone] PCP - General Internal Medicine 10/26/23 Team Status: Active Member Role Status Dates Vinnie Garaz DO Primary Care Provider Active Team Status: [...] Status Dates Vinnie Garza , Primary Care Provide r, Attending Provider Active [...] BE BASED ON THE PRIMARY CLINICAL RECORDS. [employer] provides no warranty or guarantee of the accuracy or completeness of information in this document.
--- NOTE | 2024-06-05 16:04 | ED_ITS ---
HPI HPI - General Adult General Chief complaint: Fall Stated complaint: fall Time Seen by Provider: 06/05/24 15:59 Source: patient Mode of arrival: ambulance Limitations: physical limitation History of Present Illness HPI narrative: The patient is coming to us from [facility] - [place], he fell down from the bed over the chair but he had a unwitnessed fall where he does not remember what happened but he remember being on his face on the floor, the patient denies any loss of conscious but he had an witnessed fall The patient also complaining of right hip pain and he also have this weakness in the left side of the upper and lower extremity mostly secondary to a stroke that he had in October 2023 No headache no blurry vision no double vision Related Data Home Medications ?Medication ?Instructions ?Recorded ?Confirmed aspirin 81 mg tablet,delayed 81 mg PO .QD 03/31/24 06/05/24 release flash glucose scanning reader 03/31/24 03/31/24 (FreeStyle Kathie 2 [place]) flash glucose sensor (FreeStyle 03/31/24 03/31/24 Kathie 2 Sensor kit) insulin glargine 100 unit/mL (3 15 unit subcut .QHS 03/31/24 06/05/24 mL) subcutaneous pen (Lantus Solostar U-100 Insulin) insulin syringe-needle U-100 1 mL 03/31/24 03/31/24 30 gauge x 7/16 atorvastatin 40 mg tablet 40 mg PO DAILY 06/05/24 06/05/24 gabapentin 100 mg capsule 100 mg PO TID 06/05/24 06/05/24 insulin lispro 100 unit/mL 1 sliding scale dose subcut 06/05/24 06/05/24 subcutaneous solution (Admelog USEASDIRECTD U-100 Insulin lispro) melatonin 3 mg capsule 6 mg PO DAILY 06/05/24 06/05/24 pantoprazole 40 mg tablet,delayed 40 mg PO BID 06/05/24 06/05/24 release (Protonix) tamsulosin 0.4 mg capsule 0.4 mg PO BID 06/05/24 06/05/24 ticagrelor 90 mg tablet (Brilinta) 90 mg PO BID 06/05/24 06/05/24 trazodone 50 mg tablet 50 mg PO DAILY 06/05/24 06/05/24 Allergies Allergy/AdvReac Type Severity Reaction Status Date / Time No Known Drug Allergies Allergy Verified 03/31/24 11:00 Opioid HPI Opioid Management Most Recent Opioid Data: Last Pain Scale 0 04/01/24 15:10 Last Pain Intensity 3 04/01/24 10:16 Last ED Pain Assessment 06/05/24 17:49 Last ORT Total Score 3 03/31/24 17:34 Last ORT Risk Category Low Risk 03/31/24 17:34 Review of Systems ROS Status of ROS 10 or more systems reviewed and unremark able except as noted in history and below [facility] Medical History (Updated 06/05/24 @ 18:45 by Poonam Krishna MD) Hematoma ?T14.8XXA - Other injury of unspecified body region, initial encounter (ICD- 10) Bursitis ?M71.9 - Bursopathy, unspecified (ICD-10) History of CVA (cerebrovascular accident) ?Z86.73 - Personal history of transient ischemic attack (TIA), and cerebral infarction without residual deficits (ICD-10) DM2 (diabetes mellitus, type 2) ?E11.9 - Type 2 diabetes mellitus without complications (ICD-10) Osteoarthritis ?M19.90 - Unspecified osteoarthritis, unspecified site (ICD-10) HTN (hypertension) ?I10 - Essential (primary) hypertension (ICD-10) Hyperlipidemia ?E78.5 - Hyperlipidemia, unspecified (ICD-10) Surgical History (Updated 03/31/24 @ 17:36 by Keli Gastelum, SMOOTH) H/O repair of right rotator cuff ?Z98.890 - Other specified postprocedural states (ICD-10) History of total left knee replacement ?Z96.652 - Presence of left artificial knee joint (ICD-10) Family History (Updated 03/31/24 @ 17:37 by Keli Gastelum, RN) Sister Family history of cancer Mother Family history of cancer Grandmother Family history of stroke Social History (Updated 03/31/24 @ 17:41 by Keli Gastelum, SMOOTH) Within the past year, how often did you have a drink containing alcohol: never Score interpretation: A score less than 4 is consistent with normal alcohol consumption. Smoking status: Current every day smoker Non-prescribed substance use: denies use Highest level of school completed/degree received: high school graduate Exam Narrative Exam Narrative: Nurses notes and vital signs reviewed and patient is not hypoxic. General: Well-appearing and in no apparent distress. Skin: Warm, dry, no pallor noted. No rash. Head: Normocephalic, the patient have a left forehead mole that is bleeding from mild trauma. No laceration Neck: Supple, non-tender. Eye: Pupils are equal, round and EOMI. No scleral icterus. Ears, Nose, Mouth, and Throat: TM are clear, no nasal mucosal hypertrophy. Oral mucosa is moist, no posterior oropharynx erythema, uvula is mid-line Cardiovascular: Regular Rate and Rhythm without murmur, gallop or rub. Respiratory: No accessory muscle use or respiratory distress. Lungs are clear to auscultation, no wheezing, rales or rhonchi Chest Wall: no tenderness Back: No midline thoracic or lumbar vertebral tenderness. No CVA tenderness GI: Abdomen is soft, non-distended. Normal bowel sounds. No masses appreciated. No tenderness to palpation. No rebound, guarding, or rigidity noted. Neurological: A&O x4. The patient have a baseline weakness of the upper lower extremity on the left side he also have a noted swelling of the left elbow It was noted that the patient pain on palpation although he still have full range of movement and good anterior tibial pulse Constitutional Vital Signs, click to edit/add: Last Vital Signs Temp 98.7 F 06/05/24 15:49 Pulse 94 H 06/05/24 18:46 Resp 17 06/05/24 18:46 BP 149/68 H 06/05/24 18:30 Pulse Ox 97 06/05/24 18:46 O2 Del Method Room Air 06/05/24 16:02 Course Vital Signs Vital signs: Vital Signs Temperature 98.7 F 06/05/24 15:49 Pulse Rate 90 06/05/24 15:49 Respiratory Rate 16 06/05/24 15:49 Blood Pressure 156/83 H 06/05/24 15:49 Pulse Oximetry 98 06/05/24 15:49 Oxygen Delivery Method Room Air 06/05/24 15:49 Temperature 98.7 F 06/05/24 15:49 Pulse Rate 94 H 06/05/24 18:46 Respiratory Rate 17 06/05/24 18:46 Blood Pressure 149/68 H 06/05/24 18:30 Pulse Oximetry 97 06/05/24 18:46 Oxygen Delivery Method Room Air 06/05/24 16:02 Medical Decision Making MDM Narrative Medical decision making narrative: The patient CBC and chemistry showed no acute significant pathology CT cervical spine as well as CT pelvis showed no acute pathology as well CT of the head shows subarachnoid hemorrhage as well as possible subacute ischemic stroke The patient case was discussed with trauma service [facility] and he accepted the patient transfer The patient does take Brilinta and aspirin that according to Dr. Love right now no recommendation other than above Lab Data Labs: Lab Results 06/05/24 06/05/24 Range/Units 16:00 18:02 WBC 6.5 (4.0-11.0) 10^3/uL RBC 5.15 (4.70-6.10) 10^6/uL Hgb 13.8 L (14.0-18.0) g/dL Hct 43.2 (42.0-54.0) % MCV 83.9 (80.0-94.0) fL MCH 26.8 (25.9-34.0) pg MCHC 31.9 (29.9-35.2) g/dL RDW 13.7 (11.0-15.0) % Plt Count 324 (150-450) 10^3/uL MPV 8.8 L (9.5-13.5) fL Neut % (Auto) 76.5 H (43.0-75.0) % Lymph % (Auto) 15.3 L (20.5-60.0) % [place] % (Auto) 4.6 (1.7-12.0) % Eos % (Auto) 2.8 (0.9-7.0) % Baso % (Auto) 0.5 (0.2-2.0) % Neut # (Auto) 5.0 (1.4-6.5) 10^3/uL Lymph # (Auto) 1.0 L (1.2-3.8) 10^3/uL [place] # (Auto) 0.3 (0.3-0.8) 10^3/uL Eos # (Auto) 0.2 (0.0-0.7) 10^3/uL Baso # (Auto) 0.0 (0.0-0.1) 10^3/uL Abs Immat Gran (auto) 0.02 (0.00-0.03) 10^3/uL Imm/Tot Granulo (auto) 0.3 (0.0-0.5) % Sodium 137 (136-145) mmol/L Potassium 4.1 (3.5-5.1) mmol/L Chloride 98 (98-107) mmol/L Carbon Dioxide 27.6 (21.0-32.0) mmol/L Anion Gap 15.5 BUN 13.0 (7.0-18.0) mg/dL Creatinine 0.80 (0.70-1.30) mg/dL Est GFR ( Amer) >60 (>=60) Est GFR (Non-Af Amer) >60 (>=60) BUN/Creatinine Ratio 16.2 Glucose 225 H (74-106) mg/dL Calcium 9.3 (8.5-10.1) mg/dL Total Bilirubin 0.5 (0.2-1.0) mg/dL AST 19 (15-37) U/L ALT 37 (16-63) U/L Alkaline Phosphatase 133 H (46-116) U/L Total Protein 7.5 (6.4-8.2) g/dL Albumin 3.8 (3.4-5.0) g/dL Globulin 3.7 g/dL Albumin/Globulin Ratio 1.0 POC Glucose 173 H (74-106) mg/dL Discharge Plan Discharge Chief Complaint: Fall Clinical Impression: Subarachnoid hemorrhage Fall Qualifiers: Encounter type: initial encounter Qualified Code(s): W19.XXXA - Unspecified fall, initial encounter Patient Disposition: [facility] Time of Disposition Decision: 18:45
[2024-06-05 16:11] LABS: Basophils Percent Auto 0.5 % (0.2-2.0); Eosinophils Absolute Auto 0.2 10^3/uL (0.0-0.7); Eosinophils Percent Auto 2.8 % (0.9-7.0); Hematocrit 43.2 % (42.0-54.0); Hemoglobin 13.8 g/dL (14.0-18.0); Immature Granulocytes Abs Auto 0.02 10^3/uL (0.00-0.03); Immature Granulocytes Pct Auto 0.3 % (0.0-0.5); Lymphocytes Percent Auto 15.3 % (20.5-60.0); Mean Corpuscular HGB Conc 31.9 g/dL (29.9-35.2); Mean Corpuscular Hemoglobin 26.8 pg (25.9-34.0); Mean Corpuscular Volume 83.9 fL (80.0-94.0); Mean Platelet Volume 8.8 fL (9.5-13.5); Monocytes Absolute Auto 0.3 10^3/uL (0.3-0.8); Monocytes Percent Auto 4.6 % (1.7-12.0); Neutrophils Percent Auto 76.5 % (43.0-75.0); Platelet Count 324 10^3/uL (150-450); Red Blood Count 5.15 10^6/uL (4.70-6.10); Red Cell Distribution Width 13.7 % (11.0-15.0); White Blood Count 6.5 10^3/uL (4.0-11.0)
[2024-06-05 16:23] LABS: Alanine Aminotransferase 37 U/L (16-63); Albumin Level 3.8 g/dL (3.4-5.0); Alkaline Phosphatase 133 U/L (46-116); Anion Gap 15.5; Aspartate Amino Transferase 19 U/L (15-37); BUN Creatinine Ratio 16.2; Bilirubin Total 0.5 mg/dL (0.2-1.0); Calcium 9.3 mg/dL (8.5-10.1); Carbon Dioxide 27.6 mmol/L (21.0-32.0); Chloride 98 mmol/L (98-107); Estimated GFR (African America >60 (>=60); Estimated GFR (Non-African Ame >60 (>=60); Globulin 3.7 g/dL; Glucose 225 mg/dL (74-106); Potassium 4.1 mmol/L (3.5-5.1); Sodium 137 mmol/L (136-145); Total Protein 7.5 g/dL (6.4-8.2)
[2024-06-05] MEDS: ACETAMINOPHEN 325 MG TABLET 650 MG PO (17:20)
[2024-06-05 18:04] LABS: Glucometer 173 mg/dL (74-106)
--- NOTE | 2024-06-05 18:42 | ECG_ITS ---
[facility] Test Date: 2024-06-05 Pat Name: VASHTI MASSEY Department: Room: - Gender: Male [employer]: : 1955 Requested By: ELEAZAR MAYORGA Order Number: [id number] Reading MD: ELEAZAR MAYORGA Measurements Intervals [place] Rate: 86 P: 34 MI: 152 QRS: -25 QRSD: 104 T: 13 QT: 388 QTc: 431 Interpretive Statements 1100 Sinus rhythm 5222 Moderate voltage criteria for LVH, may be normal variant 9150 abnormal ECG No previous ECG available for comparison Electronically Signed On 06-06-2024 17:40:33 EDT by ELEAZAR MAYORGA
== END 2024-06-05 20:10 | disposition short-term general hospital (02) ==
PROVIDERS: Emergency Provider Emergency Medicine; PCP Internal Medicine
DX: S06.6X0A Traumatic subarachnoid hemorrhage without loss of consciousness, initial encounter (principal); W06.XXXA Fall from bed, initial encounter; F17.200 Nicotine dependence, unspecified, uncomplicated; E11.9 Type 2 diabetes mellitus without complications; Z79.4 Long term (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 insulin; I69.354 Hemiplegia and hemiparesis following cerebral infarction affecting left non-dominant side
CPT/HCPCS: 36415; 70450; 72125; 72192; 73080; 80053; 82948; 85025; 93005; 99285

== ENCOUNTER 2024-07-09 02:59 | Outpatient (RCR) | payer MEDICARE, SELFPAY ==
[2024-07-09 09:19] LABS: Basophils Percent Auto 0.8 % (0.2-2.0); Eosinophils Absolute Auto 0.1 10^3/uL (0.0-0.7); Eosinophils Percent Auto 2.3 % (0.9-7.0); Hematocrit 35.6 % (42.0-54.0); Hemoglobin 11.6 g/dL (14.0-18.0); Immature Granulocytes Abs Auto 0.01 10^3/uL (0.00-0.03); Immature Granulocytes Pct Auto 0.2 % (0.0-0.5); Lymphocytes Absolute Auto 1.1 10^3/uL (1.2-3.8); Lymphocytes Percent Auto 23.4 % (20.5-60.0); Mean Corpuscular HGB Conc 32.6 g/dL (29.9-35.2); Mean Corpuscular Hemoglobin 26.2 pg (25.9-34.0); Mean Corpuscular Volume 80.5 fL (80.0-94.0); Monocytes Absolute Auto 0.3 10^3/uL (0.3-0.8); Monocytes Percent Auto 6.6 % (1.7-12.0); Neutrophils Absolute Auto 3.3 10^3/uL (1.4-6.5); Neutrophils Percent Auto 66.7 % (43.0-75.0); Platelet Count 252 10^3/uL (150-450); Red Blood Count 4.42 10^6/uL (4.70-6.10); White Blood Count 4.9 10^3/uL (4.0-11.0)
[2024-07-09 10:43] LABS: Alanine Aminotransferase 26 U/L (16-63); Albumin Globulin Ratio 1.1; Albumin Level 3.4 g/dL (3.4-5.0); Alkaline Phosphatase 107 U/L (46-116); Anion Gap 13.1; Aspartate Amino Transferase 12 U/L (15-37); BUN Creatinine Ratio 20.8; Bilirubin Total 0.5 mg/dL (0.2-1.0); Carbon Dioxide 27.6 mmol/L (21.0-32.0); Chloride 98 mmol/L (98-107); Estimated GFR (African America >60 (>=60); Estimated GFR (Non-African Ame >60 (>=60); Globulin 3.1 g/dL; Glucose 186 mg/dL (74-106); Potassium 3.7 mmol/L (3.5-5.1); Sodium 135 mmol/L (136-145); Total Protein 6.5 g/dL (6.4-8.2)
== END 2024-10-26 23:59 | disposition home or self-care (01) ==
LOC: LAB 02:59
PROVIDERS: PCP Internal Medicine; Visit Provider Internal Medicine
DX: I60.9 Nontraumatic subarachnoid hemorrhage, unspecified (principal); R41.82 Altered mental status, unspecified
CPT/HCPCS: 36415; 80053; 85025

== ENCOUNTER 2024-07-14 12:46 | Outpatient (OUT) | payer MEDICARE, SELFPAY ==
--- OUTSIDE RECORDS SUMMARY | 2024-07-14 13:07 | XMS_ITS | CCD ---
Author Organization [facility] Care Team Providers Care Manufacturer'S Representative Name Role Phone MUKESH, DR BUSH Primary Care Unavailable BALL, DR BUSH Attending Unavailable BALL, DR BUSH Admitting Unavailable BALL, DR BUSH Primary Care Unavailable BALL, DR BUSH Attending Unavailable BALL, DR BUSH Admitting Unavailable Ball Vinnie ESTRADA Primary Care Provider Vinnie Garza Unavailable JASON RODRIGUEZ Attending Unavailable SARAH BARRETT Attending Unavailable VINNIE GARZA Primary Care Unavailable INPATIENT, TELENEUROLOGY Consulting Unavail able ABEBE ROLLINS Admitting Unavailab KLAUS Body Referring Unavailable VINNIE GARZA Primary Care Unavailable [...] VINNIE GARZA Primary Care Unavailable VINNIE GARZA Primary Care Unavailable YUDELKA PARIKH Attending Unavailable MIRNA BAJWA Consulting Unavailable EMILIA JEFFREY Admitting Unavailable YUDELKA LICEA Consulting Unavailable YUDELKA PARIKH Attending Unavailable YUDELKA PARIKH Referring Unavailable VINNIE GARZA Primary Care Unavailable YUDELKA PARIKH Attending Unavailable YUDELKA PARIKH Referring Unavailable MUKESH, VINNIE Graham Primary Care Unavailable VINNIE GARZA Primary Care Unavailable GOLBROOK OLIVA Attending Unavailable GOLIVERBROOK Attending Unavailable GOLBROOK OLIVA Referring Unavailable VINNIE GARZA Primary Care Unavailable MUKESH, VINNIE Graham Primary Care Unavailable MOUNIKA MENDOZA Attending Unavailable ALLY LARSON Admitting Unavailable BALL, VINNIE E Referring Unavailable BALL, VINNIE E Primary Care Unavailable KLAUS YEBOAH Attending Unavailable BALL, VINNIE E Referring Unavailable BALL, VINNIE E Primary Care Unavailable VOVOKLAUS Trujillo Referring Unavailable BALL, VINNIE E Primary Care Unavailable VOKLAUS ROGERS Attending Unavailable VOVOKLAUS Trujillo Referring Unavailable BALL, VINNIE E Primary Care Unavailable BALL, VINNIE E Referring Unavailable BALL, VINNIE E Primary Care Unavailable BALL, VINNIE E Referring Unavailable BALL, VINNIE E Primary Care Unavailable TAWANNA, EHAD Attending Unavailable BALL, VININE E Referring Unavailable BALL, VINNIE E Primary Care Unavailable AYDEE, MIRNA F Admitting Unavailable AYDEE, MIRNA F Attending Unavailable EMILIA JEFFREY Referring Unavailable BALL, VINNIE E Primary Care Unavailable [facility], [facility] Consulting Unavailable KONG GALLEGOS Referring Unavailable BALL, VINNIE E Primary Care Unavailable BALL, VINNIE E Referring Unavailable BALL, VINNIE E Primary Care Unavailable BALL, VINNIE E Referring Unavailable BALL, VINNIE E Primary Care Unavailable BALL, VINNIE E Primary Care Unavailable SARAH READ Admitting Unavailable SARAH READ Attending Unavailable ISAI CEDILLO Consulting Unavailable PATRIA SOLOMON Referring Unavailable BALL, VINNIE E Primary Care Unavailable SARAH READ Referring Unavailable BALL, VINNIE E Primary Care [...] 30 tablet 1 10/29/2023 Active Blood-Glucose Meter,Continuous (StartMestyle Kathie 3 [place]) misc (2 sources) Start: 03-01-2024 Blood-Glucose Meter,Continuous (Freestyle Kathie 3 [place]) misc Active 0 .Route 1 March 01, [...] March 26, 2024 12:00am FreeStyle Kathie 2 [place] - (4 sources) Start: 11-26-2023 FreeStyle Kathie 2 [place] - Use to test home BS transcutaneous [...] daily Losartan Active 25 MG PO Daily 30 January 23, 2024 12:00am meloxicam 15 mg [...] evening meal for 90 *Pick strength-form from [employer] for eRX* 07 Jun, 2021 Not-Taking/PRN NovoLIN [...] evening meal for 30 *Pick strength-form from [employer] for eRX* 15 Jul, 2020 Not-Taking/PRN pravastatin [...] unspecified] Onset: 05-27-2024 Episodic Acute cerebrovascular disease (12 sources) Thrombotic stroke; 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) Long-term current use of insulin; 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: [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] Episodic Other aftercare (4 sources) 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; 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: [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] Onset: 10-28-2023 Episodic Other and ill-defined cerebrovascular disease (1 [...] Chronic Other connective tissue disease (1 source) Unspecified symptoms and signs involving the nervous system; 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: [Unspecified symptoms and signs involving the nervous system] Onset: 04-10-2024 Episodic Other connective tissue disease (1 source) Neuralgia and neuritis, unspecified; 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: [Neuralgia and neuritis, unspecified] Onset: 04-10-2024 Episodic Other nervous system disorders (3 sources) Abnormal gait; 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: [Unsteadiness on feet] Onset: 12-11-2023 12-11-2023 Episodic Other screening for suspected conditions (not mental disorders or infectious disease) (1 source) Other specified abnormal findings of blood chemistry; 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: [Other specified abnormal findings of blood chemistry] Onset: 04-09-2024 Episodic Residual codes; unclassified (4 sources) Altered mental status; 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: [Altered mental status, unspecified] Onset: 10-26-2023 10-28-2023 Episodic Residual codes; unclassified (1 source) Pain, unspecified; 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: [Pain, unspecified] Onset: 06-05-2024 Episodic Substance-related disorders (13 sources) Nicotine dependence; 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: [Nicotine dependence, cigarettes, uncomplicated] Chronic Superficial injury; contusion (9 sources) Contusion of right wrist, initial encounter; 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: [Contusion of right hand, initial encounter] Episodic Unclassified (1 source) Abnormal Lab Onset: 05-27-2024 Unclassified (1 source) Blurred Vision, Facial Droop Onset: 10-26-2023 Unclassified (1 source) Head Injury With LOC Onset: 06-05-2024 Past or Other Problems Problem Classification Problem Date Documented Date Episodic/Chronic Blindness and vision defects (7 sources) Blurring of visual image; 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: [Other visual disturbances] Onset: 10-26-2023 10-28-2023 Episodic Mood disorders (2 sources) Mood disorders Onset: 12-11-2023 12-11-2023 Other nervous system disorders (1 source) Unsteadiness on feet; 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: [Unsteadiness on feet] Onset: 12-11-2023 Episodic Other non-traumatic joint disorders (4 sources) Pain in right knee; 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: [Pain in joint, lower leg] Onset: 12-30-2023 12-30-2023 Episodic Residual codes; unclassified (2 sources) Transient alteration of awareness; 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: [Transient alteration of awareness] Onset: 10-28-2023 12-11-2023 Episodic Residual codes; unclassified (1 source) Altered mental status, unspecified; 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: [Altered mental status, unspecified] Onset: 10-28-2023 Episodic Residual codes; unclassified (1 source) Hallucinations Onset: 10-26-2023 Episodic Residual codes; unclassified (1 source) Pain Onset: 12-30-2023 Episodic Results Test Name Value Interpretation Reference Range Facility BASIC METABOLIC PANLon 06-11 Anion gap [Moles/Vol] 9 mmol/L Normal 5-15 [facility] Comment on above: Performed By: #### C BCA, CMP #### [facility] ([id number]) [address], [address] [place] [address] Calcium [Mass/Vol] 9.2 mg/dL Normal 8.5-10.5 [facility] Comment on above: Performed By: #### C BCA, CMP #### [facility] ([id number]) [address], [address] [place] [address] Chloride [Moles/Vol] 97 mmol/L Low 98-[address] [facility] Comment on above: Performed By: #### C BCA, CMP #### [facility] ([id number]) [address], [address] [place] [address] CO2 [Moles/Vol] 29 mmol/L Normal 22-32 [facility] Comment on above: Performed By: #### C BCA, CMP #### [facility] ([id number]) [address], [address] [place] [address] Creatinine [Mass/Vol] 0.54 mg/dL Low 0.60-1.30 [facility] Comment on above: Result Comment: METH OD TRACEABLE TO IDMS STANDARD Performed By: #### C BCA, CMP #### [facility] ([id number]) [address] [address] [place] [address] eGFR (CKD-EPI) NON-RACE DEPENDENT >90 Normal >59 [facility] Comment on above: Result Comment: Reported eGFR is based on the CKD-EPI 2020 equation that does not use a race coefficient. Performed By: #### C BCA, CMP #### [facility] ([id number]) [address], [address] [place] [address] Glucose [Mass/Vol] 158 mg/dL High 65-99 [facility] Comment on above: Performed By: #### C BCA, CMP #### [facility] ([id number]) [address], [address] [place] [address] Potassium [Moles/Vol] 4.2 mmol/L Normal 3.5-5.0 [facility] Comment on above: Performed By: #### C BCA, CMP #### [facility] ([id number]) [address], [address] [place] [address] Sodium [Moles/Vol] 135 mmol/L Normal 134-146 [facility] Comment on above: Performed By: #### C BCA, CMP #### [facility] ([id number]) [address], [address] [place] [address] Urea nitrogen [Mass/Vol] 20 mg/dL Normal 5-27 [facility] Comment on above: Performed By: #### C BCA, CMP #### [facility] ([id number]) [address], [address] [place] [address] CBC AND AUTO DIFFon 0816-20 24 ABSOLUTE BASOPHIL 0.1 X10E9/L Normal 0.0-0.2 [facility] Comment on above: Performed By: #### C BCA, CMP #### [facility] ([id number]) [address], [address] [place] [address] ABSOLUTE NEUTROPHIL 2.8 X10E9/L Normal 1.5-6.[address] [facility] Comment on above: Performed By: #### C BCA, CMP #### [facility] ([id number]) [address], [address] [place] [address] Basophils/100 WBC (Bld) 1.2 % Normal P [facility] Comment on above: Performed By: #### C BCA, CMP #### [facility] ([id number]) [address], [address] [place] [address] Eosinophils (Bld) [#/Vol] 0.1 10*3/uL Normal 0.0-0.4 [facility] Comment on above: Performed By: #### C BCA, CMP #### [facility] ([id number]) [address], [address] [place] [address] Eosinophils/100 WBC (Bld) 2.1 % Normal [facility] Comment on above: Performed By: #### C BCA, CMP #### [facility] ([id number]) [address], [address] [place] [address] Erythrocyte distribution width (RBC) [Ratio] 15.6 % High 11.5-15.0 [facility] Comment on above: Performed By: #### C BCA, CMP #### [facility] ([id number]) [address], [address] [place] [address] Hematocrit (Bld) [Volume fraction] 34.3 % Low 39-49 [facility] Comment on above: Performed By: #### C BCA, CMP #### [facility] ([id number]) [address], [address] [place] [address] Hemoglobin (Bld) [Mass/Vol] 11.6 g/dL Low 13.0-17.0 [facility] Comment on above: Performed By: #### C BCA, CMP #### [facility] ([id number]) [address] [address] [place] [address] Lymphocytes (Bld) [#/Vol] 1.0 10*3/uL Normal 1.0-3.5 [facility] Comment on above: Performed By: #### C BCA, CMP #### [facility] ([id number]) [address], [address] [place] [address] Lymphocytes/100 WBC (Bld) 23.1 % Normal [facility] Comment on above: Performed By: #### C BCA, CMP #### [facility] ([id number]) [address], [address] [place] [address] MCH (RBC) [Entitic mass] 27.1 pg Normal 27-34 [facility] Comment on above: Performed By: #### C BCA, CMP #### [facility] ([id number]) [address], [address] [place] [address] MCHC (RBC) [Mass/Vol] 33.9 g/dL Normal 32-36 [facility] Comment on above: Performed By: #### C BCA, CMP #### [facility] ([id number]) [address], [address] [place] [address] MCV (RBC) [Entitic vol] 80 fL Normal 80-100 P [facility] Comment on above: Performed By: #### C BCA, CMP #### [facility] ([id number]) [address], [address] [place] [address] Monocytes (Bld) [#/Vol] 0.4 10*3/uL Normal 0-0.9 [facility] Comment on above: Performed By: #### C BCA, CMP #### [facility] ([id number]) [address] [place] [address] Monocytes/100 WBC (Bld) 9.6 % Normal P [facility] Comment on above: Performed By: #### C BCA, CMP #### [facility] ([id number]) [address], [address] [place] [address] Neutrophils/100 WBC (Bld) 64.0 % Normal [facility] Comment on above: Performed By: #### C BCA, CMP #### [facility] ([id number]) [address], [address] [place] [address] Platelet mean volume (Bld) [Entitic vol] 7.0 fL Normal 7-12 [facility] Comment on above: Performed By: #### C ZACHARY, CMP #### [facility] ([id number]) [address], [address] [place] [address] Platelets (Bld) [#/Vol] 284 10*3/uL Normal 150-450 [facility] Comment on above: Performed By: #### C ZACHARY, CMP #### [facility] ([id number]) [address], [address] [place] [address] RBC COUNT 4.29 X10E12/L Normal 4.10-5.70 [facility] Comment on above: Performed By: #### Thais SHARMA, CMP #### [facility] ([id number]) [address], [address] [place] [address] WBC (Bld) [#/Vol] 4.4 10*3/uL Normal 4.0-11.0 [facility] Comment on above: Performed By: #### C ZACHARY, CMP #### [facility] ([id number]) [address], [address] [place] [address] Glucose Glucometer (dC) [M ass/Vol]on 06-11-2024 Glucose [Mass/Vol] 220 mg/dL High 65-99 [facility] Glucose [Mass/Vol] 210 mg/dL High 65-99 [facility] Glucose [Mass/Vol] 245 mg/dL High 65-99 [facility] Glucose [Mass/Vol] 164 mg/dL High 65-99 [facility] BASIC METABOLIC PANLon 06-10 Anion gap [Moles/Vol] 10 mmol/L Normal 5-15 [facility] Comment on above: Performed By: #### C ZACHARY, CMP #### [facility] ([id number]) [address], [address] [place] [address] Calcium [Mass/Vol] 9.3 mg/dL Normal 8.5-10.5 [facility] Comment on above: Performed By: #### C BCA, CMP #### [facility] ([id number]) [address], [address] [place] [address] Chloride [Moles/Vol] 96 mmol/L Low 98-[address] [facility] Comment on above: Performed By: #### C BCA, CMP #### [facility] ([id number]) [address], [address] [place] [address] CO2 [Moles/Vol] 28 mmol/L Normal 22-32 [facility] Comment on above: Performed By: #### C BCA, CMP #### [facility] ([id number]) [address] [address] [place] [address] Creatinine [Mass/Vol] 0.58 mg/dL Low 0.60-1.30 [facility] Comment on above: Result Comment: METH OD TRACEABLE TO IDMS STANDARD Performed By: #### C BCA, CMP #### [facility] ([id number]) [address], [address] [place] [address] eGFR (CKD-EPI) NON-RACE DEPENDENT >90 Normal >59 [facility] Comment on above: Result Comment: Reported eGFR is based on the CKD-EPI 2020 equation that does not use a race coefficient. Performed By: #### C BCA, CMP #### [facility] ([id number]) [address], [address] [place] [address] Glucose [Mass/Vol] 173 mg/dL High 65-99 [facility] Comment on above: Performed By: #### C BCA, CMP #### [facility] ([id number]) [address], [address] [place] [address] Potassium [Moles/Vol] 4.1 mmol/L Normal 3.5-5.0 [facility] Comment on above: Performed By: #### C BCA, CMP #### [facility] ([id number]) [address] [address] [place] [address] Sodium [Moles/Vol] 134 mmol/L Normal 134-146 [facility] Comment on above: Performed By: #### C BCA, CMP #### [facility] ([id number]) [address] [address] Urea nitrogen [Mass/Vol] 18 mg/dL Normal 5-27 [facility] Comment on above: Performed By: #### C BCA, CMP #### [facility] ([id number]) [address] [address] CBC AND AUTO DIFFon 06-10-20 24 ABSOLUTE BASOPHIL 0.0 X10E9/L Normal 0.0-0.2 [facility] Comment on above: Performed By: #### C BCA, CMP #### [facility] ([id number]) [address] [address] ABSOLUTE NEUTROPHIL 2.6 X10E9/L Normal 1.5-6.[address] [facility] Comment on above: Performed By: #### C BCA, CMP #### [facility] ([id number]) [address] [address] Basophils/100 WBC (Bld) 1.0 % Normal [facility] Comment on above: Performed By: #### C BCA, CMP #### [facility] ([id number]) [address] [address] Eosinophils (Bld) [#/Vol] 0.1 10*3/uL Normal 0.0-0.4 [facility] Comment on above: Performed By: #### C BCA, CMP #### [facility] ([id number]) [address], [address] [place] [address] Eosinophils/100 WBC (Bld) 1.9 % Normal [facility] Comment on above: Performed By: #### C BCA, CMP #### [facility] ([id number]) [address], [address] [place] [address] Erythrocyte distribution width (RBC) [Ratio] 15.8 % High 11.5-15.0 [facility] Comment on above: Performed By: #### C ZACHARY, CMP #### [facility] ([id number]) [address], [address] [place] [address] Hematocrit (Bld) [Volume fraction] 34.3 % Low 39-49 [facility] Comment on above: Performed By: #### C ZACHARY, CMP #### [facility] ([id number]) [address], [address] [place] [address] Hemoglobin (Bld) [Mass/Vol] 11.3 g/dL Low 13.0-17.0 [facility] Comment on above: Performed By: #### C ZACHARY, CMP #### [facility] ([id number]) [address], [address] [place] [address] Lymphocytes (Bld) [#/Vol] 1.1 10*3/uL Normal 1.0-3.5 [facility] Comment on above: Performed By: #### C BCA, CMP #### [facility] ([id number]) [address], [address] [place] [address] Lymphocytes/100 WBC (Bld) 26.6 % Normal [facility] Comment on above: Performed By: #### C BCA, CMP #### [facility] ([id number]) [address] [place] [address] MCH (RBC) [Entitic mass] 26.4 pg Low 27-34 [facility] Comment on above: Performed By: #### C BCA, CMP #### [facility] ([id number]) [address] [place] [address] MCHC (RBC) [Mass/Vol] 32.8 g/dL Normal 32-36 [facility] Comment on above: Performed By: #### C BCA, CMP #### [facility] ([id number]) [address] [place] [address] MCV (RBC) [Entitic vol] 80 fL Normal 80-100 P [facility] Comment on above: Performed By: #### C BCA, CMP #### [facility] ([id number]) [address] [place] [address] Monocytes (Bld) [#/Vol] 0.4 10*3/uL Normal 0-0.9 [facility] Comment on above: Performed By: #### C BCA, CMP #### [facility] ([id number]) [address], [address] [place] [address] Monocytes/100 WBC (Bld) 8.2 % Normal [facility] Comment on above: Performed By: #### C BCA, CMP #### [facility] ([id number]) [address] [place] [address] Neutrophils/100 WBC (Bld) 62.3 % Normal [facility] Comment on above: Performed By: #### C BCA, CMP #### [facility] ([id number]) [address] [place] [address] Platelet mean volume (Bld) [Entitic vol] 7.0 fL Normal 7-12 [facility] Comment on above: Performed By: #### C BCA, CMP #### [facility] ([id number]) [address] [place] [address] Platelets (Bld) [#/Vol] 290 10*3/uL Normal 150-450 [facility] Comment on above: Performed By: #### C ZACHARY, CMP #### [facility] ([id number]) [address], [address] [place] [address] RBC COUNT 4.26 X10E12/L Normal 4.10-5.70 [facility] Comment on above: Performed By: #### C ZACHARY, CMP #### [facility] ([id number]) [address], [address] [place] [address] WBC (Bld) [#/Vol] 4.3 10*3/uL Normal 4.0-11.0 [facility] Comment on above: Performed By: #### C ZACHARY, CMP #### [facility] ([id number]) [address], [address] [place] [address] Glucose Glucometer (dC) [M ass/Vol]on 06-10-2024 Glucose [Mass/Vol] 258 mg/dL High 65-99 [facility] Glucose [Mass/Vol] 272 mg/dL High 65-99 [facility] Glucose [Mass/Vol] 275 mg/dL High 65-99 [facility] Glucose [Mass/Vol] 175 mg/dL High 65-99 [facility] Glucose [Mass/Vol] 168 mg/dL High 65-99 [facility] Glucose [Mass/Vol] 181 mg/dL High 65-99 [facility] BASIC METABOLIC PANLon 06-09 Anion gap [Moles/Vol] 8 mmol/L Normal 5-15 [facility] Comment on above: Performed By: #### C BCA, CMP #### [facility] ([id number]) [address] [place] [address] Calcium [Mass/Vol] 8.9 mg/dL Normal 8.5-10.5 [facility] Comment on above: Performed By: #### C BCA, CMP #### [facility] ([id number]) [address] [place] [address] Chloride [Moles/Vol] 98 mmol/L Normal 98-[address] [facility] Comment on above: Performed By: #### C BCA, CMP #### [facility] ([id number]) [address] [place] [address] CO2 [Moles/Vol] 29 mmol/L Normal 22-32 [facility] Comment on above: Performed By: #### C BCA, CMP #### [facility] ([id number]) [address] [address] [place] [address] Creatinine [Mass/Vol] 0.51 mg/dL Low 0.60-1.30 [facility] Comment on above: Result Comment: METH OD TRACEABLE TO IDMS STANDARD Performed By: #### C BCA, CMP #### [facility] ([id number]) [address] [place] [address] eGFR (CKD-EPI) NON-RACE DEPENDENT >90 Normal >59 [facility] Comment on above: Result Comment: Reported eGFR is based on the CKD-EPI 2020 equation that does not use a race coefficient. Performed By: #### C BCA, CMP #### [facility] ([id number]) [address] [place] [address] Glucose [Mass/Vol] 174 mg/dL High 65-99 [facility] Comment on above: Performed By: #### C BCA, CMP #### [facility] ([id number]) [address] [address] [place] [address] Potassium [Moles/Vol] 4.2 mmol/L Normal 3.5-5.0 [facility] Comment on above: Performed By: #### C BCA, CMP #### [facility] ([id number]) [address] [place] [address] Sodium [Moles/Vol] 135 mmol/L Normal 134-146 [facility] Comment on above: Performed By: #### C BCA, CMP #### [facility] ([id number]) [address], [address] [place] [address] Urea nitrogen [Mass/Vol] 13 mg/dL Normal 5-27 [facility] Comment on above: Performed By: #### C BCA, CMP #### [facility] ([id number]) [address] [address] [place] [address] CBC AND AUTO DIFFon 06-09-20 24 ABSOLUTE BASOPHIL 0.1 X10E9/L Normal 0.0-0.2 [facility] Comment on above: Performed By: #### C BCA, CMP #### [facility] ([id number]) [address] [address] [place] [address] ABSOLUTE NEUTROPHIL 2.4 X10E9/L Normal 1.5-6.[address] [facility] Comment on above: Performed By: #### C BCA, CMP #### [facility] ([id number]) [address], [address] [address] Basophils/100 WBC (Bld) 1.4 % Normal [facility] Comment on above: Performed By: #### C BCA, CMP #### [facility] ([id number]) [address], [facility] [address] [place] [address] Eosinophils (Bld) [#/Vol] 0.1 10*3/uL Normal 0.0-0.4 [facility] Comment on above: Performed By: #### C BCA, CMP #### [facility] ([id number]) [address] [address] Eosinophils/100 WBC (Bld) 3.1 % Normal [facility] Comment on above: Performed By: #### C BCA, CMP #### [facility] ([id number]) [address], [address] [place] [address] Erythrocyte distribution width (RBC) [Ratio] 16.2 % High 11.5-15.0 [facility] Comment on above: Performed By: #### C ZACHARY, CMP #### [facility] ([id number]) [address], [address] [place] [address] Hematocrit (Bld) [Volume fraction] 33.5 % Low 39-49 [facility] Comment on above: Performed By: #### C ZACHARY, CMP #### [facility] ([id number]) [address], [address] [place] [address] Hemoglobin (Bld) [Mass/Vol] 11.3 g/dL Low 13.0-17.0 [facility] Comment on above: Performed By: #### C ZACHARY, CMP #### [facility] ([id number]) [address], [address] [place] [address] Lymphocytes (Bld) [#/Vol] 1.2 10*3/uL Normal 1.0-3.5 [facility] Comment on above: Performed By: #### C ZACHARY, CMP #### [facility] ([id number]) [address], [address] [place] [address] Lymphocytes/100 WBC (Bld) 28.7 % Normal [facility] Comment on above: Performed By: #### C ZACHARY, CMP #### [facility] ([id number]) [address], [address] [place] [address] MCH (RBC) [Entitic mass] 27.0 pg Normal 27-34 [facility] Comment on above: Performed By: #### C BCA, CMP #### [facility] ([id number]) [address], [address] [place] [address] MCHC (RBC) [Mass/Vol] 33.6 g/dL Normal 32-36 [facility] Comment on above: Performed By: #### C BCA, CMP #### [facility] ([id number]) [address], [address] [place] [address] MCV (RBC) [Entitic vol] 80 fL Normal 80-100 [facility] Comment on above: Performed By: #### C BCA, CMP #### [facility] ([id number]) [address], [address] [place] [address] Monocytes (Bld) [#/Vol] 0.3 10*3/uL Normal 0-0.9 [facility] Comment on above: Performed By: #### C BCA, CMP #### [facility] ([id number]) [address], [address] [place] [address] Monocytes/100 WBC (Bld) 7.6 % Normal [facility] Comment on above: Performed By: #### C BCA, CMP #### [facility] ([id number]) [address], [address] [place] [address] Neutrophils/100 WBC (Bld) 59.2 % Normal [facility] Comment on above: Performed By: #### C BCA, CMP #### [facility] ([id number]) [address], [address] [place] [address] Platelet mean volume (Bld) [Entitic vol] 6.9 fL Low 7-12 [facility] Comment on above: Performed By: #### C BCA, CMP #### [facility] ([id number]) [address], [address] [place] [address] Platelets (Bld) [#/Vol] 280 10*3/uL Normal 150-450 [facility] Comment on above: Performed By: #### C BCA, CMP #### [facility] ([id number]) [address], [address] [place] [address] RBC COUNT 4.17 X10E12/L Normal 4.10-5.70 [facility] Comment on above: Performed By: #### C BCA, CMP #### [facility] ([id number]) [address], [address] [place] [address] WBC (Bld) [#/Vol] 4.1 10*3/uL Normal 4.0-11.0 [facility] Comment on above: Performed By: #### C BCA, CMP #### [facility] ([id number]) [address], [address] [place] [address] Glucose Glucometer (BldC) [M ass/Vol]on 06-09-2024 Glucose [Mass/Vol] 215 mg/dL High 65-99 [facility] Glucose [Mass/Vol] 217 mg/dL High 65-99 [facility] BASIC METABOLIC PANLon 06-08 Anion gap [Moles/Vol] 9 mmol/L Normal 5-15 [facility] Comment on above: Performed By: #### C BCA, CMP #### [facility] ([id number]) [address], [address] [place] [address] Calcium [Mass/Vol] 8.7 mg/dL Normal 8.5-10.5 [facility] Comment on above: Performed By: #### C BCA, CMP #### [facility] ([id number]) [address], [address] [place] [address] Chloride [Moles/Vol] 99 mmol/L Normal 98-[address] [facility] Comment on above: Performed By: #### C BCA, CMP #### [facility] ([id number]) [address], [address] [place] [address] CO2 [Moles/Vol] 27 mmol/L Normal 22-32 [facility] Comment on above: Performed By: #### C BCA, CMP #### [facility] ([id number]) [address], [address] [place] [address] Creatinine [Mass/Vol] 0.64 mg/dL Normal 0.60-1.30 [facility] Comment on above: Result Comment: METH OD TRACEABLE TO IDMS STANDARD Performed By: #### C BCA, CMP #### [facility] ([id number]) [address], [address] [place] [address] eGFR (CKD-EPI) NON-RACE DEPENDENT >90 Normal >59 [facility] Comment on above: Result Comment: Reported eGFR is based on the CKD-EPI 2020 equation that does not use a race coefficient. Performed By: #### C BCA, CMP #### [facility] ([id number]) [address], [address] [place] [address] Glucose [Mass/Vol] 166 mg/dL High 65-99 [facility] Comment on above: Performed By: #### C BCA, CMP #### [facility] ([id number]) [address] [address] [place] [address] Potassium [Moles/Vol] 4.2 mmol/L Normal 3.5-5.0 [facility] Comment on above: Performed By: #### C BCA, CMP #### [facility] ([id number]) [address], [address] [place] [address] Sodium [Moles/Vol] 135 mmol/L Normal 134-146 [facility] Comment on above: Performed By: #### C BCA, CMP #### [facility] ([id number]) [address], [address] [place] [address] Urea nitrogen [Mass/Vol] 16 mg/dL Normal 5-27 [facility] Comment on above: Performed By: #### C BCA, CMP #### [facility] ([id number]) [address] [address] [place] [address] CBC AND AUTO DIFFon 06-08-20 24 ABSOLUTE BASOPHIL 0.1 X10E9/L Normal 0.0-0.2 [facility] Comment on above: Performed By: #### C BCA, CMP #### [facility] ([id number]) [address], [address] [place] [address] ABSOLUTE NEUTROPHIL 3.8 X10E9/L Normal 1.5-6.[address] [facility] Comment on above: Performed By: #### C ZACHARY, CMP #### [facility] ([id number]) [address], [address] [place] [address] Basophils/100 WBC (Bld) 1.1 % Normal [facility] Comment on above: Performed By: #### C ZACHARY, CMP #### [facility] ([id number]) [address], [address] [place] [address] Eosinophils (Bld) [#/Vol] 0.1 10*3/uL Normal 0.0-0.4 [facility] Comment on above: Performed By: #### C ZACHARY, CMP #### [facility] ([id number]) [address], [address] [place] [address] Eosinophils/100 WBC (Bld) 1.6 % Normal [facility] Comment on above: Performed By: #### C ZACHARY, CMP #### [facility] ([id number]) [address], [address] [place] [address] Erythrocyte distribution width (RBC) [Ratio] 15.4 % High 11.5-15.0 [facility] Comment on above: Performed By: #### C BCA, CMP #### [facility] ([id number]) [address], [address] [place] [address] Hematocrit (Bld) [Volume fraction] 32.3 % Low 39-49 [facility] Comment on above: Performed By: #### C BCA, CMP #### [facility] ([id number]) [address], [address] [place] [address] Hemoglobin (Bld) [Mass/Vol] 10.8 g/dL Low 13.0-17.0 [facility] Comment on above: Performed By: #### C BCA, CMP #### [facility] ([id number]) [address], [address] [place] [address] Lymphocytes (Bld) [#/Vol] 1.2 10*3/uL Normal 1.0-3.5 [facility] Comment on above: Performed By: #### C ZACHARY, CMP #### [facility] ([id number]) [address], [address] [place] [address] Lymphocytes/100 WBC (Bld) 21.2 % Normal [facility] Comment on above: Performed By: #### C BCA, CMP #### [facility] ([id number]) [address], [address] [place] [address] MCH (RBC) [Entitic mass] 26.9 pg Low 27-34 [facility] Comment on above: Performed By: #### C BCA, CMP #### [facility] ([id number]) [address], [address] [place] [address] MCHC (RBC) [Mass/Vol] 33.3 g/dL Normal 32-36 [facility] Comment on above: Performed By: #### C BCA, CMP #### [facility] ([id number]) [address], [address] [place] [address] MCV (RBC) [Entitic vol] 81 fL Normal 80-100 P [facility] Comment on above: Performed By: #### C BCA, CMP #### [facility] ([id number]) [address], [address] [place] [address] Monocytes (Bld) [#/Vol] 0.3 10*3/uL Normal 0-0.9 [facility] Comment on above: Performed By: #### C BCA, CMP #### [facility] ([id number]) [address], [address] [place] [address] Monocytes/100 WBC (Bld) 5.8 % Normal P [facility] Comment on above: Performed By: #### C BCA, CMP #### [facility] ([id number]) [address], [address] [place] [address] Neutrophils/100 WBC (Bld) 70.3 % Normal [facility] Comment on above: Performed By: #### C BCA, CMP #### [facility] ([id number]) [address], [address] [place] [address] Platelet mean volume (Bld) [Entitic vol] 7.1 fL Normal 7-12 [facility] Comment on above: Performed By: #### C BCA, CMP #### [facility] ([id number]) [address] [place] [address] Platelets (Bld) [#/Vol] 269 10*3/uL Normal 150-450 [facility] Comment on above: Performed By: #### C BCA, CMP #### [facility] ([id number]) [address], [address] [place] [address] RBC COUNT 4.00 X10E12/L Low 4.10-5.70 [facility] Comment on above: Performed By: #### C BCA, CMP #### [facility] ([id number]) [address], [address] [place] [address] WBC (Bld) [#/Vol] 5.5 10*3/uL Normal 4.0-11.0 [facility] Comment on above: Performed By: #### C BCA, CMP #### [facility] ([id number]) [address], [address] [place] [address] Glucose Glucometer (BldC) [M ass/Vol]on 06-08-2024 Glucose [Mass/Vol] 175 mg/dL High 65-99 [facility] Glucose [Mass/Vol] 239 mg/dL High 65-99 [facility] BASIC METABOLIC PANLon 06-07 Anion gap [Moles/Vol] 9 mmol/L Normal 5-15 [facility] Comment on above: Performed By: #### C BCA, CMP #### [facility] ([id number]) [address] [address] Calcium [Mass/Vol] 8.7 mg/dL Normal 8.5-10.5 [facility] Comment on above: Performed By: #### C BCA, CMP #### [facility] ([id number]) [address] [address] Chloride [Moles/Vol] 100 mmol/L Normal 98-[address] [facility] Comment on above: Performed By: #### C BCA, CMP #### [facility] ([id number]) [address], [address] [address] CO2 [Moles/Vol] 26 mmol/L Normal 22-32 [facility] Comment on above: Performed By: #### C BCA, CMP #### [facility] ([id number]) [address] [address] Creatinine [Mass/Vol] 0.63 mg/dL Normal 0.60-1.30 [facility] Comment on above: Result Comment: METH OD TRACEABLE TO IDMS STANDARD Performed By: #### C BCA, CMP #### [facility] ([id number]) [address] [address] eGFR (CKD-EPI) NON-RACE DEPENDENT >90 Normal >59 [facility] Comment on above: Result Comment: Reported eGFR is based on the CKD-EPI 2020 equation that does not use a race coefficient. Performed By: #### C BCA, CMP #### [facility] ([id number]) [address], [address] [place] [address] Glucose [Mass/Vol] 161 mg/dL High 65-99 [facility] Comment on above: Performed By: #### C BCA, CMP #### [facility] ([id number]) [address], [address] [place] [address] Potassium [Moles/Vol] 4.2 mmol/L Normal 3.5-5.0 [facility] Comment on above: Performed By: #### C BCA, CMP #### [facility] ([id number]) [address] [address] [place] [address] Sodium [Moles/Vol] 135 mmol/L Normal 134-146 [facility] Comment on above: Performed By: #### C BCA, CMP #### [facility] ([id number]) [address] [address] [place] [address] Urea nitrogen [Mass/Vol] 15 mg/dL Normal 5-27 [facility] Comment on above: Performed By: #### C BCA, CMP #### [facility] ([id number]) [address] [address] [place] [address] CBC AND AUTO DIFFon 12 24 ABSOLUTE BASOPHIL 0.1 X10E9/L Normal 0.0-0.2 [facility] Comment on above: Performed By: #### C BCA, CMP #### [facility] ([id number]) [address] [address] [place] [address] ABSOLUTE NEUTROPHIL 4.2 X10E9/L Normal 1.5-6.[address] [facility] Comment on above: Performed By: #### C BCA, CMP #### [facility] ([id number]) [address] [address] [place] [address] Basophils/100 WBC (Bld) 1.0 % Normal P [facility] Comment on above: Performed By: #### C BCA, CMP #### [facility] ([id number]) [address] [place] [address] Eosinophils (Bld) [#/Vol] 0.1 10*3/uL Normal 0.0-0.4 [facility] Comment on above: Performed By: #### C BCA, CMP #### [facility] ([id number]) [address] [address] [place] [address] Eosinophils/100 WBC (Bld) 1.5 % Normal [facility] Comment on above: Performed By: #### C BCA, CMP #### [facility] ([id number]) [address] [address] [place] [address] Erythrocyte distribution width (RBC) [Ratio] 15.7 % High 11.5-15.0 [facility] Comment on above: Performed By: #### C BCA, CMP #### [facility] ([id number]) [address] [address] [place] [address] Hematocrit (Bld) [Volume fraction] 32.5 % Low 39-49 [facility] Comment on above: Performed By: #### C BCA, CMP #### [facility] ([id number]) [address] [address] [place] [address] Hemoglobin (Bld) [Mass/Vol] 10.8 g/dL Low 13.0-17.0 [facility] Comment on above: Performed By: #### C BCA, CMP #### [facility] ([id number]) [address] [address] [place] [address] Lymphocytes (Bld) [#/Vol] 1.2 10*3/uL Normal 1.0-3.5 [facility] Comment on above: Performed By: #### C BCA, CMP #### [facility] ([id number]) [address] [place] [address] Lymphocytes/100 WBC (Bld) 19.6 % Normal [facility] Comment on above: Performed By: #### C BCA, CMP #### [facility] ([id number]) [address] [place] [address] MCH (RBC) [Entitic mass] 26.8 pg Low 27-34 [facility] Comment on above: Performed By: #### C BCA, CMP #### [facility] ([id number]) [address] [place] [address] MCHC (RBC) [Mass/Vol] 33.3 g/dL Normal 32-36 [facility] Comment on above: Performed By: #### C BCA, CMP #### [facility] ([id number]) [address] [place] [address] MCV (RBC) [Entitic vol] 81 fL Normal 80-100 P [facility] Comment on above: Performed By: #### C BCA, CMP #### [facility] ([id number]) [address] [place] [address] Monocytes (Bld) [#/Vol] 0.4 10*3/uL Normal 0-0.9 [facility] Comment on above: Performed By: #### C BCA, CMP #### [facility] ([id number]) [address] [place] [address] Monocytes/100 WBC (Bld) 6.8 % Normal P [facility] Comment on above: Performed By: #### C BCA, CMP #### [facility] ([id number]) [address] [place] [address] Neutrophils/100 WBC (Bld) 71.1 % Normal [facility] Comment on above: Performed By: #### C BCA, CMP #### [facility] ([id number]) [address] [place] [address] Platelet mean volume (Bld) [Entitic vol] 7.0 fL Normal 7-12 [facility] Comment on above: Performed By: #### C BCA, CMP #### [facility] ([id number]) [address] [place] [address] Platelets (Bld) [#/Vol] 276 10*3/uL Normal 150-450 [facility] Comment on above: Performed By: #### C ZACHARY, CMP #### [facility] ([id number]) [address] [place] [address] RBC COUNT 4.03 X10E12/L Low 4.10-5.70 [facility] Comment on above: Performed By: #### C BCA, CMP #### [facility] ([id number]) [address] [place] [address] WBC (Bld) [#/Vol] 5.9 10*3/uL Normal 4.0-11.0 [facility] Comment on above: Performed By: #### C BCA, CMP #### [facility] ([id number]) [address] [place] [address] Glucose Glucometer (BldC) [M ass/Vol]on 06-07-2024 Glucose [Mass/Vol] 187 mg/dL High 65-99 [facility] Glucose [Mass/Vol] 182 mg/dL High 65-99 [facility] Glucose [Mass/Vol] 233 mg/dL High 65-99 [facility] Glucose [Mass/Vol] 153 mg/dL High 65-99 [facility] BASIC METABOLIC PANLon 06-06 Anion gap [Moles/Vol] 10 mmol/L Normal 5-15 [facility] Comment on above: Performed By: #### C BCA, CMP #### [facility] ([id number]) [address] [place] [address] Calcium [Mass/Vol] 8.5 mg/dL Normal 8.5-10.5 [facility] Comment on above: Performed By: #### C BCA, CMP #### [facility] ([id number]) [address] [place] [address] Chloride [Moles/Vol] 103 mmol/L Normal 98-[address] [facility] Comment on above: Performed By: #### C BCA, CMP #### [facility] ([id number]) [address] [place] [address] CO2 [Moles/Vol] 22 mmol/L Normal 22-32 [facility] Comment on above: Performed By: #### C BCA, CMP #### [facility] ([id number]) [address] [place] [address] Creatinine [Mass/Vol] 0.55 mg/dL Low 0.60-1.30 [facility] Comment on above: Result Comment: METH OD TRACEABLE TO IDMS STANDARD Performed By: #### C BCA, CMP #### [facility] ([id number]) [address] [address] [place] [address] eGFR (CKD-EPI) NON-RACE DEPENDENT >90 Normal >59 [facility] Comment on above: Result Comment: Reported eGFR is based on the CKD-EPI 1 equation that does not use a race coefficient. Performed By: #### C BCA, CMP #### [facility] ([id number]) [address] [place] [address] Glucose [Mass/Vol] 237 mg/dL High 65-99 [facility] Comment on above: Performed By: #### C BCA, CMP #### [facility] ([id number]) [address] [place] [address] Potassium [Moles/Vol] 3.8 mmol/L Normal 3.5-5.0 [facility] Comment on above: Performed By: #### C ZACHARY, CMP #### [facility] ([id number]) [address] [place] [address] Sodium [Moles/Vol] 135 mmol/L Normal 134-146 [facility] Comment on above: Performed By: #### C ZACHARY, CMP #### [facility] ([id number]) [address] [address] [place] [address] Urea nitrogen [Mass/Vol] 12 mg/dL Normal 5-27 [facility] Comment on above: Performed By: #### C ZACHARY, CMP #### [facility] ([id number]) [address] [address] [place] [address] CBC AND AUTO DIFFon 06-06-20 24 ABSOLUTE BASOPHIL 0.1 X10E9/L Normal 0.0-0.2 [facility] Comment on above: Performed By: #### C ZACHARY, CMP #### [facility] ([id number]) [address] [place] [address] ABSOLUTE NEUTROPHIL 4.6 X10E9/L Normal 1.5-6.[address] [facility] Comment on above: Performed By: #### C ZACHARY, CMP #### [facility] ([id number]) [address] [address] Basophils/100 WBC (Bld) 1.0 % Normal P [facility] Comment on above: Performed By: #### C ZACHARY, CMP #### [facility] ([id number]) [address] [address] [place] [address] Eosinophils (Bld) [#/Vol] 0.1 10*3/uL Normal 0.0-0.4 [facility] Comment on above: Performed By: #### C ZACHARY, CMP #### [facility] ([id number]) [address], [address] [place] [address] Eosinophils/100 WBC (Bld) 1.8 % Normal [facility] Comment on above: Performed By: #### C BCA, CMP #### [facility] [facility] ([id number]) [address], [address] [place] [address] Erythrocyte distribution width (RBC) [Ratio] 15.7 % High 11.5-15.0 [facility] Comment on above: Performed By: #### C ZACHARY, CMP #### [facility] ([id number]) [address], [address] [place] [address] Hematocrit (Bld) [Volume fraction] 33.0 % Low 39-49 [facility] Comment on above: Performed By: #### C ZACHARY, CMP #### [facility] ([id number]) [address], [address] [place] [address] Hemoglobin (Bld) [Mass/Vol] 11.1 g/dL Low 13.0-17.0 [facility] Comment on above: Performed By: #### C ZACHARY, CMP #### [facility] ([id number]) [address], [address] [place] [address] Lymphocytes (Bld) [#/Vol] 1.1 10*3/uL Normal 1.0-3.5 [facility] Comment on above: Performed By: #### C BCA, CMP #### [facility] ([id number]) [address], [address] [place] [address] Lymphocytes/100 WBC (Bld) 17.4 % Normal [facility] Comment on above: Performed By: #### C BCA, CMP #### [facility] ([id number]) [address], [address] [place] [address] MCH (RBC) [Entitic mass] 27.5 pg Normal 27-34 [facility] Comment on above: Performed By: #### C BCA, CMP #### [facility] ([id number]) [address], [address] [place] [address] MCHC (RBC) [Mass/Vol] 33.8 g/dL Normal 32-36 [facility] Comment on above: Performed By: #### C BCA, CMP #### [facility] ([id number]) [address], [address] [place] [address] MCV (RBC) [Entitic vol] 82 fL Normal 80-100 P [facility] Comment on above: Performed By: #### C BCA, CMP #### [facility] ([id number]) [address], [address] [place] [address] Monocytes (Bld) [#/Vol] 0.4 10*3/uL Normal 0-0.9 [facility] Comment on above: Performed By: #### C BCA, CMP #### [facility] ([id number]) [address], [address] [place] [address] Monocytes/100 WBC (Bld) 5.8 % Normal [facility] Comment on above: Performed By: #### C BCA, CMP #### [facility] ([id number]) [address], [address] [place] [address] Neutrophils/100 WBC (Bld) 74.0 % Normal [facility] Comment on above: Performed By: #### C BCA, CMP #### [facility] ([id number]) [address], [address] [place] [address] Platelet mean volume (Bld) [Entitic vol] 6.9 fL Low 7-12 [facility] Comment on above: Performed By: #### C BCA, CMP #### [facility] ([id number]) [address], [address] [place] [address] Platelets (Bld) [#/Vol] 272 10*3/uL Normal 150-450 [facility] Comment on above: Performed By: #### C BCA, CMP #### [facility] ([id number]) [address], [address] [place] [address] RBC COUNT 4.05 X10E12/L Low 4.10-5.70 [facility] Comment on above: Performed By: #### C BCA, CMP #### [facility] ([id number]) [address], [address] [place] [address] WBC (Bld) [#/Vol] 6.2 10*3/uL Normal 4.0-11.0 [facility] Comment on above: Performed By: #### C BCA, CMP #### [facility] ([id number]) [address], [address] [place] [address] CT BRAIN WO CONTon CT BRAIN WO CONT CT BRAIN WO CONT STUDY: CT HEAD WITHOUT CONTRAST CLINICAL HISTORY: Subarachnoid hemorrhage (SAH) intracranial hemorrhage. COMPARISON: 06/05/2024 TECHNIQUE: CT head was performed without contrast utilizing 2.5 mm axial reconstruction with images reviewed in bone and brain windows. Automated exposure control was utilized. FINDINGS: Stable right MCA distribution encephalomalacia. There is deep white matter low attenuation suggestive of chronic small vessel microvascular ischemic change. Right parietal encephalomalacia. Stable small volume left parietotemporal subarachnoid hemorrhage. No shift of midline structures. Basal cisterns are patent. There is compensatory enlargement of the right lateral ventricle. No significant paranasal sinus opacification. Bilateral carotid calcifications. IMPRESSION: 1. Stable small volume left parietotemporal subarachnoid hemorrhage without significant progressive change. 2. Chronic and age-related changes are stable. All CT scans at this facility use dose modulation, iterative reconstruction, and/or weight based dosing when appropriate to reduce radiation dose to as low as reasonably achievable. Finalized by Ricardo Beatty MD on 06/06/2024 5:57 AM Normal [facility] Glucose Glucometer (BldC) [M ass/Vol]on 06-06-2024 Glucose [Mass/Vol] 189 mg/dL High 65-99 [facility] Glucose [Mass/Vol] 140 mg/dL High 65-99 [facility] Glucose [Mass/Vol] 129 mg/dL High 65-99 [facility] Glucose [Mass/Vol] 231 mg/dL High 65-99 [facility] AMYLASEon 06-05-2024 Amylase [Catalytic activity/Vol] 30 U/L Normal 28-100 [facility] Comment on above: Performed By: #### C BCA, 85509-5, PINR, 14986-2, 1798-8, CMP, 3040-3, 5643-2 ####[facility] ([id number])[address], [address], [place] [address] CBC AND AUTO DIFFon 06-05-20 24 ABSOLUTE BASOPHIL 0.1 X10E9/L Normal 0.0-0.2 [facility] Comment on above: Performed By: #### C BCA, 99101-7, PINR, 56922-7, 1798-8, CMP, 3040-3, 5643-2 ####[facility] ([id number])[address], [address], [place] [address] ABSOLUTE NEUTROPHIL 4.6 X10E9/L Normal 1.5-6.[address] [facility] Comment on above: Performed By: #### C BCA, 35059-2, PINR, 01762-3, 1798-8, CMP, 3040-3, 5643-2 ####[facility] ([id number])[address], [address], [place] [address] Basophils/100 WBC (Bld) 0.9 % Normal [facility] Comment on above: Performed By: #### C BCA, 53138-2, PINR, 25850-5, 1798-8, CMP, 3040-3, 5643-2 ####[facility] ([id number])[address] [address] [place] [address] Eosinophils (Bld) [#/Vol] 0.1 10*3/uL Normal 0.0-0.4 [facility] Comment on above: Performed By: #### C BCA, 98302-6, PINR, 66925-9, 1798-8, CMP, 3040-3, 5643-2 ####[facility] ([id number])[address] [address] Eosinophils/100 WBC (Bld) 2.0 % Normal [facility] Comment on above: Performed By: #### C BCA, 84961-5, PINR, 20187-1, 1797-8, CMP, 3040-3, 5643-2 ####[facility] ([id number])[address] [address] Erythrocyte distribution width (RBC) [Ratio] 15.8 % High 11.5-15.0 [facility] Comment on above: Performed By: #### C BCA, 55587-1, PINR, 43045-9, 1797-8, CMP, 3040-3, 5643-2 ####[facility] ([id number])[address] [address] Hematocrit (Bld) [Volume fraction] 34.5 % Low 39-49 [facility] Comment on above: Performed By: #### C BCA, 37725-0, PINR, 12817-3, 1797-8, CMP, 3040-3, 5643-2 ####[facility] ([id number])[address] [address] Hemoglobin (Bld) [Mass/Vol] 12.0 g/dL Low 13.0-17.0 [facility] Comment on above: Performed By: #### C BCA, 21671-9, PINR, 23013-5, 1798-8, CMP, 3040-3, 5643-2 ####[facility] ([id number])[address], [address] [place] [address] Lymphocytes (Bld) [#/Vol] 1.2 10*3/uL Normal 1.0-3.5 [facility] Comment on above: Performed By: #### C BCA, 90061-0, PINR, 77477-2, 1798-8, CMP, 3040-3, 5643-2 ####[facility] ([id number])[address], [address] [place] [address] Lymphocytes/100 WBC (Bld) 19.6 % Normal [facility] Comment on above: Performed By: #### C BCA, 92444-1, PINR, 85409-3, 1798-8, CMP, 3040-3, 5643-2 ####[facility] ([id number])[address] [address] [place] [address] MCH (RBC) [Entitic mass] 27.7 pg Normal 27-34 [facility] Comment on above: Performed By: #### C BCA, 87590-0, PINR, 01471-0, 179-8, CMP, 3040-3, 5643-2 ####[facility] ([id number])[address] [address] [place] [address] MCHC (RBC) [Mass/Vol] 34.9 g/dL Normal 32-36 [facility] Comment on above: Performed By: #### C BCA, 81289-7, PINR, 61723-8, 1798-8, CMP, 3040-3, 5643-2 ####[facility] ([id number])[address] [address] [place] [address] MCV (RBC) [Entitic vol] 79 fL Low 80-100 P [facility] Comment on above: Performed By: #### C BCA, 48206-0, PINR, 88668-1, 1798-8, CMP, 3040-3, 5643-2 ####[facility] ([id number])[address], [address], [place] [address] Monocytes (Bld) [#/Vol] 0.4 10*3/uL Normal 0-0.9 [facility] Comment on above: Performed By: #### C BCA, 31995-1, PINR, 27804-5, 1797-8, CMP, 3040-3, 5643-2 ####[facility] ([id number])[address], [address] [place] [address] Monocytes/100 WBC (Bld) 5.6 % Normal [facility] Comment on above: Performed By: #### C BCA, 44163-7, PINR, 92896-8, 1797-8, CMP, 3040-3, 5643-2 ####[facility] ([id number])[address], [address] [place] [address] Neutrophils/100 WBC (Bld) 71.9 % Normal [facility] Comment on above: Performed By: #### C BCA, 80293-0, PINR, 77398-5, 1797-8, CMP, 3040-3, 5643-2 ####[facility] ([id number])[address] [address] [place] [address] Platelet mean volume (Bld) [Entitic vol] 6.8 fL Low 7-12 [facility] Comment on above: Performed By: #### C BCA, 47319-0, PINR, 79900-4, 8-8, CMP, 3040-3, 5643-2 ####[facility] ([id number])[address], [address] [place] [address], [place] [address] Platelets (Bld) [#/Vol] 299 10*3/uL Normal 150-450 [facility] Comment on above: Performed By: #### C BCA, 12670-3, PINR, 20059-5, 1798-8, CMP, 3040-3, 5643-2 ####[facility] ([id number])[address], [address] [place] [address] RBC COUNT 4.35 X10E12/L Normal 4.10-5.70 [facility] Comment on above: Performed By: #### C BCA, 42855-1, PINR, 90559-7, 1798-8, CMP, 3040-3, 5643-2 ####[facility] ([id number])[address] [address] [place] [address] WBC (Bld) [#/Vol] 6.4 10*3/uL Normal 4.0-11.0 [facility] Comment on above: Performed By: #### C BCA, 27012-4, PINR, 43804-7, 1798-8, CMP, 3040-3, 5643-2 ####[facility] ([id number])[address] [address] [place] [address] COMPREHENSIVE METABOLIC PANE [place] 06-05-2024 Albumin [Mass/Vol] 3.9 g/dL Normal 3.2-5.3 [facility] Comment on above: Performed By: #### C BCA, CMP #### [facility] ([id number]) [address], [address] [place] [address] ALP [Catalytic activity/Vol] 94 U/L Normal 39-130 [facility] Comment on above: Performed By: #### C BCA, CMP #### [facility] ([id number]) [address] [address] [place] [address] ALT [Catalytic activity/Vol] 17 U/L Normal 0-40 [facility] Comment on above: Performed By: #### C BCA, CMP #### [facility] ([id number]) [address] [address] [place] [address] Anion gap [Moles/Vol] 11 mmol/L Normal 5-15 [facility] Comment on above: Performed By: #### C BCA, CMP #### [facility] ([id number]) [address], [address] [place] [address] AST [Catalytic activity/Vol] 13 U/L Normal 0-41 [facility] Comment on above: Performed By: #### C BCA, CMP #### [facility] ([id number]) [address], [address] [place] [address] Bilirubin [Mass/Vol] 0.5 mg/dL Normal 0.3-1.[address] [facility] Comment on above: Performed By: #### C BCA, CMP #### [facility] ([id number]) [address], [address] [place] [address] Calcium [Mass/Vol] 8.8 mg/dL Normal 8.5-10.5 [facility] Comment on above: Performed By: #### C BCA, CMP #### [facility] ([id number]) [address], [address] [place] [address] Chloride [Moles/Vol] 101 mmol/L Normal 98-[address] [facility] Comment on above: Performed By: #### C BCA, CMP #### [facility] ([id number]) [address], [address] [place] [address] CO2 [Moles/Vol] 25 mmol/L Normal 22-32 [facility] Comment on above: Performed By: #### C BCA, CMP #### [facility] ([id number]) [address], [address] [place] [address] Creatinine [Mass/Vol] 0.54 mg/dL Low 0.60-1.30 [facility] Comment on above: Result Comment: METH OD TRACEABLE TO IDMS STANDARD Performed By: #### C BCA, CMP #### [facility] ([id number]) [address], [address] [place] [address] eGFR (CKD-EPI) NON-RACE DEPENDENT >90 Normal >59 [facility] Comment on above: Result Comment: Reported eGFR is based on the CKD-EPI 2020 equation that does not use a race coefficient. Performed By: #### C BCA, CMP #### [facility] ([id number]) [address] [address] [place] [address] Glucose [Mass/Vol] 146 mg/dL High 65-99 [facility] Comment on above: Performed By: #### C BCA, CMP #### [facility] ([id number]) [address] [address] [place] [address] Potassium [Moles/Vol] 3.9 mmol/L Normal 3.5-5.0 [facility] Comment on above: Performed By: #### C BCA, CMP #### [facility] ([id number]) [address] [address] [place] [address] Protein [Mass/Vol] 6.3 g/dL Normal 6.0-8.0 [facility] Comment on above: Performed By: #### C BCA, CMP #### [facility] ([id number]) [address] [address] [place] [address] Sodium [Moles/Vol] 137 mmol/L Normal 134-146 [facility] Comment on above: Performed By: #### C BCA, CMP #### [facility] ([id number]) [address] [address] [place] [address] Urea nitrogen [Mass/Vol] 13 mg/dL Normal 5-27 [facility] Comment on above: Performed By: #### C BCA, CMP #### [facility] ([id number]) [address] [address] [place] [address] DRUG SCREEN, URINEon 024 AMPHETAMINE/METHAMP Negative Normal NEG [facility] Comment on above: Result Comment: AMPH /METH screening cut off = 1000 ng/mL Performed By: #### C BCA, CMP #### [facility] ([id number]) [address], [address] [place] [address] BARBITURATES Negative Normal NEG [facility] Comment on above: Result Comment: Elsie iturates screening cut off value = 200 ng/mL Performed By: #### C BCA, CMP #### [facility] ([id number]) [address], [address] [place] [address] BENZODIAZEPINES Negative Normal NEG [facility] Comment on above: Result Comment: James odiazepines screening cut off value = 200 ng/mL Performed By: #### C BCA, CMP #### [facility] ([id number]) [address] [place] [address] CANNABINOIDS Negative Normal NEG [facility] Comment on above: Result Comment: Shawn abinoids/THC screening cut off value = 50 ng/mL Performed By: #### C BCA, CMP #### [facility] ([id number]) [address] [place] [address] COCAINE METABOLITE Negative Normal NEG [facility] Comment on above: Result Comment: Coca ine screening cut off value = 300 ng/mL Performed By: #### C BCA, CMP #### [facility] ([id number]) [address], [address] [place] [address] ECSTASY Negative Normal NEG [facility] Comment on above: Result Comment: Ecst asy screening cut off value = 500 ng/mL This report is intended for use in clinical monitoring or management of patients. Performed By: #### C BCA, CMP #### [facility] ([id number]) [address], [address] [place] [address] METHADONE Negative Normal NEG [facility] Comment on above: Result Comment: Meth adone screening cut off value = 300 ng/mL. Performed By: #### C BCA, CMP #### [facility] ([id number]) [address], [address] [place] [address] OPIATES Negative Normal NEG [facility] Comment on above: Result Comment: Opia yanira screening cut off value = 300 ng/mL NOTE: This test is used for the detection of codeine, hydrocodone (>1000 ng/mL), morphine and hydromorphone (>900 ng/mL) in urine. Performed By: #### C BCA, CMP #### [facility] ([id number]) [address], [address] [place] [address] OXYCODONE Negative Normal NEG [facility] Comment on above: Result Comment: Oxyc odone screening cut off value = 300 ng/mL NOTE: This test is used for the detection of oxycodone and oxymorphone in urine. Performed By: #### C BCA, CMP #### [facility] ([id number]) [address] [address] [place] [address] PHENCYCLIDINE Negative Normal NEG [facility] Comment on above: Result Comment: Phen cyclidine screening cut off value = 25 ng/mL Performed By: #### C BCA, CMP #### [facility] ([id number]) [address], [address] [place] [address] ETHANOLon 06-05-2024 Ethanol [Mass/Vol] mg/dL Normal 0.00-0.08 [facility] Comment on above: Result Comment: This report is intended for use in clinical monitoring or management of patients. Performed By: #### C BCA, CMP #### [facility] ([id number]) [address], [address] [place] [address] Fibrinogen Coagulation.deriv ed (PPP) [Mass/Vol]on 06-05-2024 FIBRINOGEN 459 mg/dL Normal 190-480 [facility] Comment on above: Performed By: #### C BCA, 14911-1, PINR, 51106-0, 1798-8, CMP, 3040-3, 5643-2 ####[facility] ([id number])[address], [place] [address] Glucose Glucometer (BldC) [M ass/Vol]on 06-05-2024 Glucose [Mass/Vol] 154 mg/dL High 65-99 [facility] LIPASEon 06-05-2024 Lipase [Catalytic activity/Vol] 35 U/L Normal 11-82 [facility] Comment on above: Performed By: #### C BCA, CMP #### [facility] ([id number]) [address], [address] [place] [address] PROTIME AND INRon 06-05-2024 INR Coag (PPP) [Relative time] 1.1 {INR} Normal 0.8-1.1 [facility] Comment on above: Performed By: #### C BCA, 98830-1, PINR, 90667-3, 8-8, CMP, 3040-3, 5643-2 ####[facility] ([id number])[address], [address] [place] [address] PT Coag (PPP) [Time] 12.9 s Normal 9.8-13.[address] [facility] Comment on above: Performed By: #### C BCA, 92420-8, PINR, 20816-9, 1798-8, CMP, 3040-3, 5643-2 ####[facility] ([id number])[address], [place] [address] URINALYSISon 06-05-2024 Bilirubin Ql (U) Negative Normal NEG [facility] Comment on above: Performed By: #### C BCA, CMP #### [facility] ([id number]) [address] [place] [address] BLOOD/HGB MODERATE Abnormal NEG [facility] Comment on above: Performed By: #### C BCA, CMP #### [facility] ([id number]) [address] [place] [address] Color (U) YELLOW Normal YELLOW [facility] Comment on above: Performed By: #### C BCA, CMP #### [facility] ([id number]) [address], [address] [place] [address] Glucose Ql (U) Negative Normal NEG [facility] Comment on above: Performed By: #### C BCA, CMP #### [facility] ([id number]) [address] [place] [address] Ketones Ql (U) Negative Normal NEG [facility] Comment on above: Performed By: #### C BCA, CMP #### [facility] ([id number]) [address] [place] [address] Leukocyte esterase Test strip Ql (U) MODERATE Abnormal NEG [facility] Comment on above: Performed By: #### C BCA, CMP #### [facility] ([id number]) [address] [place] [address] MUCOUS PRESENT Abnormal NONE [facility] Comment on above: Performed By: #### C BCA, CMP #### [facility] ([id number]) [address] [place] [address] Nitrite Ql (U) Negative Normal NEG [facility] Comment on above: Performed By: #### C BCA, CMP #### [facility] ([id number]) [address] [place] [address] pH (U) 6.5 [pH] Normal 5.0-8.5 [facility] Comment on above: Performed By: #### C BCA, CMP #### [facility] ([id number]) [address] [place] [address] Protein Ql (U) 30 mg/dL Abnormal NEG [facility] Comment on above: Performed By: #### C BCA, CMP #### [facility] ([id number]) [address] [address] R.B.CELLS 35 /hpf High 0-5 [facility] Comment on above: Performed By: #### C BCA, CMP #### [facility] ([id number]) [address] [address] Specific gravity (U) [Rel density] 1.020 Normal 1.003-1.035 [facility] Comment on above: Performed By: #### C ZACHARY, CMP #### [facility] ([id number]) [address] [address] TURBIDITY CLEAR Normal CLEAR [facility] Comment on above: Performed By: #### C BCA, CMP #### [facility] ([id number]) [address] [address] Urinalysis dipstick W Reflex Microscopic panel (U) URINE RECEIVED WITHOUT PRESERVATIVE-DELAYS IN TRANSPORT MAY AFFECT RESULTS.INTERPRET WITH CAUTION AND CLINICAL CORRELATION IS RECOMMENDED. Normal [facility] Comment on above: Performed By: #### C BCA, CMP #### [facility] ([id number]) [address] [address] Urobilinogen Qn (U) 3 {Marley'U}/dL High <1.1 [facility] Comment on above: Performed By: #### C BCA, CMP #### [facility] ([id number]) [address] [address] W.B.CELLS 37 /hpf High 0-5 [facility] Comment on above: Performed By: #### C BCA, CMP #### [facility] ([id number]) [address] [address] XR CHEST 1 VWon 06-05-2024 XR CHEST 1 VW XR CHEST 1 VW History: Pain after trauma Technique: A portable single frontal view the chest was obtained. Comparison: 10/26/2023 Findings: There is pulmonary vascular congestion, increased since the prior study. Lung arreola are otherwise clear. The heart size is enlarged but is unchanged. Impression: Stable cardiomegaly but increasing pulmonary vascular congestion since the previous examination dated 10/26/2023. Finalized by Hussein Espino MD on 06/05/2024 10:48 PM Normal [facility] aPTT Coag (PPP) [Time]on aPTT Coag (Bld) [Time] 32 s Normal 26-37 Pr [facility] Comment on above: Performed By: #### C BCA, 14516-4, PINR, 43404-7, 1798-8, CMP, 3040-3, 5643-2 ####[facility] ([id number])[address] [facility], [address] [place] [address] BASIC METABOLIC PANLon 06-01 Anion gap [Moles/Vol] 10 mmol/L Normal 5-15 [facility] Comment on above: Performed By: #### P INR, 67948-2, 34510-7, CBCA, 56270-4, CMP, 4548-4, 6873-4 #### [facility] ([id number]) [address] [place] [address] 62527 #### HA1C #### [facility] ([id number]) [address] [facility], [address] [place] [address] Calcium [Mass/Vol] 8.7 mg/dL Normal 8.5-10.5 [facility] Comment on above: Performed By: #### P INR, 27269-8, 79260-7, CBCA, 64755-0, CMP, 4548-4, 6873-4 #### [facility] ([id number]) [address] [place] [address] #### HA1C #### [facility] ([id number]) [address], [address] [place] [address] Chloride [Moles/Vol] 99 mmol/L Normal 98-109 [facility] Comment on above: Performed By: #### P INR, 91640-0, 26452-2, CBCA, 19298-3, CMP, 4548-4, 6873-4 #### [facility] ([id number]) [address] [place] [address] 94248 #### HA1C #### [facility] ([id number]) [address] [facility], [address] [place] [address] CO2 [Moles/Vol] 23 mmol/L Normal 22-32 [facility] Comment on above: Performed By: #### P INR, 37992-1, 91371-3, CBCA, 61338-2, CMP, 4548-4, 6873-4 #### [facility] ([id number]) [address] [place] [address] 55149 #### HA1C #### [facility] ([id number]) [address] [facility], [address] [place] [address] Creatinine [Mass/Vol] 0.59 mg/dL Low 0.70-1.20 [facility] Comment on above: Result Comment: METH OD TRACEABLE TO IDMS STANDARD Performed By: #### P INR, 57869-3, 24859-9, CBCA, 20360-2, CMP, 4548-4, 6873-4 #### [facility] ([id number]) [address] [place] [address] 67797 #### HA1C #### [facility] ([id number]) [address], [address] [place] [address] eGFR (CKD-EPI) NON-RACE DEPENDENT >90 Normal >59 [facility] Comment on above: Result Comment: Reported eGFR is based on the CKD-EPI 2020 equation that does not use a race coefficient. Performed By: #### P INR, 26437-1, 37211-4, CBCA, 49096-5, CMP, 4548-4, 6873-4 #### [facility] ([id number]) [address] [place] [address] 75063 #### HA1C #### [facility] ([id number]) [address], [address] [place] [address] Glucose [Mass/Vol] 163 mg/dL High 65-99 [facility] Comment on above: Performed By: #### P INR, 55853-0, 90740-6, CBCA, 40441-8, CMP, 4548-4, 6873-4 #### [facility] ([id number]) [address] [place] [address] 57656 #### HA1C #### [facility] ([id number]) [address] [facility], [address] [place] [address] Potassium [Moles/Vol] 3.9 mmol/L Normal 3.5-5.0 [facility] Comment on above: Performed By: #### P INR, 93706-5, 09123-0, CBCA, 92870-2, CMP, 4548-4, 6873-4 #### [facility] ([id number]) [address] [place] [address] 13398 #### HA1C #### [facility] ([id number]) [address], [address] [place] [address] Sodium [Moles/Vol] 132 mmol/L Low 134-146 [facility] Comment on above: Performed By: #### P INR, 99993-6, 88039-6, CBCA, 62397-6, CMP, 4548-4, 6873-4 #### [facility] ([id number]) [address] [place] [address] 25359 #### HA1C #### [facility] ([id number]) [address], [address] [place] [address] Urea nitrogen [Mass/Vol] 15 mg/dL Normal 5-27 [facility] Comment on above: Performed By: #### P INR, 76154-8, 87553-3, CBCA, 52078-5, CMP, 4548-4, 6873-4 #### [facility] ([id number]) [address] [place] [address] 50463 #### HA1C #### [facility] ([id number]) [address] [facility], [address] [place] [address] CBC AND AUTO DIFFon 06-01-20 24 ABSOLUTE BASOPHIL 0.0 X10E9/L Normal 0.0-0.2 [facility] Comment on above: Performed By: #### P INR, 37370-7, 67110-3, CBCA, 21069-6, CMP, 4548-4, 6873-4 #### [facility] ([id number]) [address] [place] [address] 74127 #### HA1C #### [facility] ([id number]) [address] [facility], [address] [place] [address] ABSOLUTE NEUTROPHIL 2.5 X10E9/L Normal 1.5-6.6 [facility] Comment on above: Performed By: #### P INR, 74140-6, 41248-9, CBCA, 49571-2, CMP, 4548-4, 6873-4 #### [facility] ([id number]) [address] [place] [address] 94828 #### HA1C #### [facility] ([id number]) [address], [address] [place] [address] Basophils/100 WBC (Bld) 1.0 % Normal P [facility] Comment on above: Performed By: #### P INR, 49372-1, 80661-0, CBCA, 08936-9, CMP, 4548-4, 6873-4 #### [facility] ([id number]) [address] [place] [address] 65242 #### HA1C #### [facility] ([id number]) [address], [address] [place] [address] Eosinophils (Bld) [#/Vol] 0.3 10*3/uL Normal 0.0-0.4 [facility] Comment on above: Performed By: #### P INR, 39772-5, 70210-8, CBCA, 12740-0, CMP, 4548-4, 6873-4 #### [facility] ([id number]) [address] [place] [address] 07313 #### HA1C #### [facility] ([id number]) [address], [address] [place] [address] Eosinophils/100 WBC (Bld) 6.5 % Normal [facility] Comment on above: Performed By: #### P INR, 42871-9, 94313-1, CBCA, 78984-3, CMP, 4548-4, 6873-4 #### [facility] ([id number]) [address] [place] [address] 69218 #### HA1C #### [facility] ([id number]) [address], [address] [place] [address] Erythrocyte distribution width (RBC) [Ratio] 15.7 % High 11.5-15.0 [facility] Comment on above: Performed By: #### P INR, 24315-1, 47676-4, CBCA, 00807-4, CMP, 4548-4, 6873-4 #### [facility] ([id number]) [address] [place] [address] 21954 #### HA1C #### [facility] ([id number]) [address], [address] [place] [address] Hematocrit (Bld) [Volume fraction] 34.2 % Low 39-49 [facility] Comment on above: Performed By: #### P INR, 87740-6, 64750-0, CBCA, 16641-7, CMP, 4548-4, 6873-4 #### [facility] ([id number]) [address] [place] [address] 72525 #### HA1C #### [facility] ([id number]) [address], [address] [place] [address] Hemoglobin (Bld) [Mass/Vol] 11.6 g/dL Low 13.0-17.0 [facility] Comment on above: Performed By: #### P INR, 54781-4, 17545-9, CBCA, 69111-2, CMP, 4548-4, 6873-4 #### [facility] ([id number]) [address] [place] [address] 15016 #### HA1C #### [facility] ([id number]) [address], [address] [place] [address] Lymphocytes (Bld) [#/Vol] 1.6 10*3/uL Normal 1.0-3.5 [facility] Comment on above: Performed By: #### P INR, 28990-5, 70648-5, CBCA, 16201-3, CMP, 4548-4, 6873-4 #### [facility] ([id number]) [address] [place] [address] 67285 #### HA1C #### [facility] ([id number]) [address], [address] [place] [address] Lymphocytes/100 WBC (Bld) 33.6 % Normal [facility] Comment on above: Performed By: #### P INR, 64797-6, 71587-5, CBCA, 80861-6, CMP, 4548-4, 6873-4 #### [facility] ([id number]) [address] [place] [address] 36341 #### HA1C #### [facility] ([id number]) [address], [address] [place] [address] MCH (RBC) [Entitic mass] 27.2 pg Normal 27-34 [facility] Comment on above: Performed By: #### P INR, 20930-1, 94772-6, CBCA, 43531-4, CMP, 4548-4, 6873-4 #### [facility] ([id number]) [address] [place] [address] 76019 #### HA1C #### [facility] ([id number]) [address], [address] [place] [address] MCHC (RBC) [Mass/Vol] 33.9 g/dL Normal 32-36 [facility] Comment on above: Performed By: #### P INR, 23186-3, 11797-7, CBCA, 35277-3, CMP, 4548-4, 6873-4 #### [facility] ([id number]) [address] [place] [address] 06173 #### HA1C #### [facility] ([id number]) [address], [address] [place] [address] MCV (RBC) [Entitic vol] 80 fL Normal 80-100 P [facility] Comment on above: Performed By: #### P INR, 21007-7, 13174-2, CBCA, 84427-3, CMP, 4548-4, 6873-4 #### [facility] ([id number]) [address] [place] [address] 43162 #### HA1C #### [facility] ([id number]) [address], [address] [place] [address] Monocytes (Bld) [#/Vol] 0.4 10*3/uL Normal 0-0.9 [facility] Comment on above: Performed By: #### P INR, 13029-2, 82594-0, CBCA, 21007-1, CMP, 4548-4, 6873-4 #### [facility] ([id number]) [address] [place] [address] 34619 #### HA1C #### [facility] ([id number]) [address] [facility], [address] [place] [address] Monocytes/100 WBC (Bld) 7.6 % Normal [facility] Comment on above: Performed By: #### P INR, 73230-5, 89680-5, CBCA, 84959-9, CMP, 4548-4, 6873-4 #### [facility] ([id number]) [address] [place] [address] 69109 #### HA1C #### [facility] ([id number]) [address], [address] [place] [address] Neutrophils/100 WBC (Bld) 51.3 % Normal [facility] Comment on above: Performed By: #### P INR, 39461-6, 29168-1, CBCA, 38926-3, CMP, 4548-4, 6873-4 #### [facility] ([id number]) [address] [place] [address] 48872 #### HA1C #### [facility] ([id number]) [address], [address] [place] [address] Platelet mean volume (Bld) [Entitic vol] 6.8 fL Low 7-12 [facility] Comment on above: Performed By: #### P INR, 54616-2, 45335-4, CBCA, 25218-1, CMP, 4548-4, 6873-4 #### [facility] ([id number]) [address] [place] [address] 92887 #### HA1C #### [facility] ([id number]) [address] [facility], [address] [place] [address] Platelets (Bld) [#/Vol] 300 10*3/uL Normal 150-450 [facility] Comment on above: Performed By: #### P INR, 59939-8, 26440-9, CBCA, 76673-9, CMP, 4548-4, 6873-4 #### [facility] ([id number]) [address] [place] [address] 10262 #### HA1C #### [facility] ([id number]) [address] [facility], [address] [place] [address] RBC COUNT 4.25 X10E12/L Normal 4.10-5.70 [facility] Comment on above: Performed By: #### P INR, 96711-7, 99142-7, CBCA, 92721-7, CMP, 4548-4, 6873-4 #### [facility] ([id number]) [address] [place] [address] 04943 #### HA1C #### [facility] ([id number]) [address] [facility], [address] [place] [address] WBC (Bld) [#/Vol] 4.9 10*3/uL Normal 4.0-11.0 [facility] Comment on above: Performed By: #### P INR, 58632-0, 68680-0, CBCA, 40576-3, CMP, 4548-4, 6873-4 #### [facility] ([id number]) [address] [place] [address], [place] [address] #### HA1C #### [facility] ([id number]) [address] [facility], [address] [place] [address] Glucose Glucometer (BldC) [M ass/Vol]on 06-01-2024 Glucose [Mass/Vol] 143 mg/dL High 65-99 [facility] BASIC METABOLIC PANLon 05-31 Anion gap [Moles/Vol] 8 mmol/L Normal 5-15 [facility] Comment on above: Performed By: #### P INR, 87717-2, 73397-4, CBCA, 74816-0, CMP, 4548-4, 6873-4 #### [facility] ([id number]) [address] [place] [address] 32694 #### HA1C #### [facility] ([id number]) [address] [facility], [address] [place] [address] Calcium [Mass/Vol] 8.5 mg/dL Normal 8.5-10.5 [facility] Comment on above: Performed By: #### P INR, 89625-1, 08143-4, CBCA, 43080-3, CMP, 4548-4, 6873-4 #### [facility] ([id number]) [address] [place] [address] 03046 #### HA1C #### [facility] ([id number]) [address] [facility], [address] [place] [address] Chloride [Moles/Vol] 100 mmol/L Normal 98-109 [facility] Comment on above: Performed By: #### P INR, 22945-0, 17935-8, CBCA, 28478-3, CMP, 4548-4, 6873-4 #### [facility] ([id number]) [address] [place] [address] 41136 #### HA1C #### [facility] ([id number]) [address], [address] [place] [address] CO2 [Moles/Vol] 24 mmol/L Normal 22-32 [facility] Comment on above: Performed By: #### P INR, 60497-1, 28934-9, CBCA, 11156-5, CMP, 4548-4, 6873-4 #### [facility] ([id number]) [address] [place] [address] 01691 #### HA1C #### [facility] ([id number]) [address] [facility], [address] [place] [address] Creatinine [Mass/Vol] 0.69 mg/dL Low 0.70-1.20 [facility] Comment on above: Result Comment: METH OD TRACEABLE TO IDMS STANDARD Performed By: #### P INR, 49563-3, 77119-7, CBCA, 94290-7, CMP, 4548-4, 6873-4 #### [facility] ([id number]) [address] [place] [address] 96151 #### HA1C #### [facility] ([id number]) [address] [facility], [address] [place] [address] eGFR (CKD-EPI) NON-RACE DEPENDENT >90 Normal >59 [facility] Comment on above: Result Comment: Reported eGFR is based on the CKD-EPI 2020 equation that does not use a race coefficient. Performed By: #### P INR, 84438-3, 22402-2, CBCA, 94545-2, CMP, 4548-4, 6873-4 #### [facility] ([id number]) [address] [place] [address] 26285 #### HA1C #### [facility] ([id number]) [address], [address] [place] [address] Glucose [Mass/Vol] 139 mg/dL High 65-99 [facility] Comment on above: Performed By: #### P INR, 81307-5, 32886-5, CBCA, 87338-9, CMP, 4548-4, 6873-4 #### [facility] ([id number]) [address] [place] [address] 50447 #### HA1C #### [facility] ([id number]) [address] [facility], [address] [place] [address] Potassium [Moles/Vol] 3.7 mmol/L Normal 3.5-5.0 [facility] Comment on above: Performed By: #### P INR, 93613-4, 52834-4, CBCA, 10691-7, CMP, 4548-4, 6873-4 #### [facility] ([id number]) [address] [place] [address] 39091 #### HA1C #### [facility] ([id number]) [address] [facility], [address] [place] [address] Sodium [Moles/Vol] 132 mmol/L Low 134-146 [facility] Comment on above: Performed By: #### P INR, 97302-1, 16504-1, CBCA, 89541-5, CMP, 4548-4, 6873-4 #### [facility] ([id number]) [address] [place] [address] 00878 #### HA1C #### [facility] ([id number]) [address] [facility], [address] [place] [address] Urea nitrogen [Mass/Vol] 16 mg/dL Normal 5-27 [facility] Comment on above: Performed By: #### P INR, 73035-7, 44660-0, CBCA, 63896-5, CMP, 4548-4, 6873-4 #### [facility] ([id number]) [address] [place] [address] 24248 #### HA1C #### [facility] ([id number]) [address], [address] [place] [address] CBC AND AUTO DIFFon 05-31-20 24 ABSOLUTE BASOPHIL 0.1 X10E9/L Normal 0.0-0.2 [facility] Comment on above: Performed By: #### P INR, 76845-4, 59577-1, CBCA, 54181-1, CMP, 4548-4, 6873-4 #### [facility] ([id number]) [address] [place] [address] 79875 #### HA1C #### [facility] ([id number]) [address], [address] [place] [address] ABSOLUTE NEUTROPHIL 3.4 X10E9/L Normal 1.5-6.6 [facility] Comment on above: Performed By: #### P INR, 12381-7, 31565-1, CBCA, 81537-0, CMP, 4548-4, 6873-4 #### [facility] ([id number]) [address] [place] [address] 34843 #### HA1C #### [facility] ([id number]) [address], [address] [place] [address] Basophils/100 WBC (Bld) 1.1 % Normal [facility] Comment on above: Performed By: #### P INR, 26847-6, 08165-7, CBCA, 48162-2, CMP, 4548-4, 6873-4 #### [facility] ([id number]) [address] [place] [address] 56883 #### HA1C #### [facility] ([id number]) [address], [address] [place] [address] Eosinophils (Bld) [#/Vol] 0.4 10*3/uL Normal 0.0-0.4 [facility] Comment on above: Performed By: #### P INR, 88335-5, 98359-6, CBCA, 37881-7, CMP, 4548-4, 6873-4 #### [facility] ([id number]) [address] [place] [address] 94426 #### HA1C #### [facility] ([id number]) [address], [address] [place] [address] Eosinophils/100 WBC (Bld) 7.9 % Normal [facility] Comment on above: Performed By: #### P INR, 71209-5, 16375-5, CBCA, 60314-2, CMP, 4548-4, 6873-4 #### [facility] ([id number]) [address] [place] [address] 17984 #### HA1C #### [facility] ([id number]) [address], [address] [place] [address] Erythrocyte distribution width (RBC) [Ratio] 15.1 % High 11.5-15.0 [facility] Comment on above: Performed By: #### P INR, 70542-0, 05551-7, CBCA, 43566-7, CMP, 4548-4, 6873-4 #### [facility] ([id number]) [address] [place] [address] 22545 #### HA1C #### [facility] ([id number]) [address], [address] [place] [address] Hematocrit (Bld) [Volume fraction] 37.2 % Low 39-49 [facility] Comment on above: Performed By: #### P INR, 61863-3, 86829-8, CBCA, 27177-5, CMP, 4548-4, 6873-4 #### [facility] ([id number]) [address] [place] [address] 21269 #### HA1C #### [facility] ([id number]) [address], [address] [place] [address] Hemoglobin (Bld) [Mass/Vol] 12.5 g/dL Low 13.0-17.0 [facility] Comment on above: Performed By: #### P INR, 40382-1, 38757-7, CBCA, 63290-9, CMP, 4548-4, 6873-4 #### [facility] ([id number]) [address] [place] [address] 16655 #### HA1C #### [facility] ([id number]) [address], [address] [place] [address] Lymphocytes (Bld) [#/Vol] 1.2 10*3/uL Normal 1.0-3.5 [facility] Comment on above: Performed By: #### P INR, 80614-7, 86159-2, CBCA, 43773-6, CMP, 4548-4, 6873-4 #### [facility] ([id number]) [address] [place] [address] 54372 #### HA1C #### [facility] ([id number]) [address], [address] [place] [address] Lymphocytes/100 WBC (Bld) 21.2 % Normal [facility] Comment on above: Performed By: #### P INR, 22224-3, 92152-8, CBCA, 78183-8, CMP, 4548-4, 6873-4 #### [facility] ([id number]) [address] [place] [address] #### HA1C #### [facility] ([id number]) [address], [address] [place] [address] MCH (RBC) [Entitic mass] 27.4 pg Normal 27-34 [facility] Comment on above: Performed By: #### P INR, 32876-4, 47771-0, CBCA, 94373-7, CMP, 4548-4, 6873-4 #### [facility] ([id number]) [address] [place] [address] 36605 #### HA1C #### [facility] ([id number]) [address], [address] [place] [address] MCHC (RBC) [Mass/Vol] 33.7 g/dL Normal 32-36 [facility] Comment on above: Performed By: #### P INR, 09569-4, 73092-9, CBCA, 56889-8, CMP, 4548-4, 6873-4 #### [facility] ([id number]) [address] [place] [address] #### HA1C #### [facility] ([id number]) [address], [address] [place] [address] MCV (RBC) [Entitic vol] 81 fL Normal 80-100 P [facility] Comment on above: Performed By: #### P INR, 38908-3, 80609-7, CBCA, 81809-3, CMP, 4548-4, 6873-4 #### [facility] ([id number]) [address] [place] [address] 216[address] #### HA1C #### [facility] ([id number]) [address], [address] [place] [address] Monocytes (Bld) [#/Vol] 0.4 10*3/uL Normal 0-0.9 [facility] Comment on above: Performed By: #### P INR, 60345-4, 52743-2, CBCA, 10957-9, CMP, 4548-4, 6873-4 #### [facility] ([id number]) [address] [place] [address] 137[address] #### HA1C #### [facility] ([id number]) [address], [address] [place] [address] Monocytes/100 WBC (Bld) 6.7 % Normal [facility] Comment on above: Performed By: #### P INR, 97006-1, 99557-1, CBCA, 46308-5, CMP, 4548-4, 6873-4 #### [facility] ([id number]) [address] [place] [address] #### HA1C #### [facility] ([id number]) [address], [address] [place] [address] Neutrophils/100 WBC (Bld) 63.1 % Normal [facility] Comment on above: Performed By: #### P INR, 59586-9, 05251-2, CBCA, 45512-5, CMP, 4548-4, 6873-4 #### [facility] ([id number]) [address] [place] [address] 24[address] #### HA1C #### [facility] ([id number]) [address], [address] [place] [address] Platelet mean volume (Bld) [Entitic vol] 6.9 fL Low 7-12 [facility] Comment on above: Performed By: #### P INR, 60289-2, 26722-2, CBCA, 23087-0, CMP, 4548-4, 6873-4 #### [facility] ([id number]) [address] [place] [address] #### HA1C #### [facility] ([id number]) [address], [address] [place] [address] Platelets (Bld) [#/Vol] 297 10*3/uL Normal 150-450 [facility] Comment on above: Performed By: #### P INR, 62634-3, 56187-9, CBCA, 83061-7, CMP, 4548-4, 6873-4 #### [facility] ([id number]) [address] [place] [address] #### HA1C #### [facility] ([id number]) [address], [address] [place] [address] RBC COUNT 4.57 X10E12/L Normal 4.10-5.70 [facility] Comment on above: Performed By: #### P INR, 13314-3, 75055-0, CBCA, 14456-5, CMP, 4548-4, 6873-4 #### [facility] ([id number]) [address] [place] [address]79 #### HA1C #### [facility] ([id number]) [address] [place] [address], [address] [address] WBC (Bld) [#/Vol] 5.4 10*3/uL Normal 4.0-11.0 [facility] Comment on above: Performed By: #### P INR, 39889-3, 46033-4, CBCA, 30033-9, CMP, 4548-4, 6873-4 #### [facility] ([id number]) [address] [place] [address] 23471 #### HA1C #### [facility] ([id number]) [address] [place] [address], [address] [place] [address] Glucose Glucometer (BldC) [M ass/Vol]on 05-31-2024 Glucose [Mass/Vol] 201 mg/dL High 65-99 [facility] Glucose [Mass/Vol] 217 mg/dL High 65-99 [facility] Glucose [Mass/Vol] 189 mg/dL High 65-99 [facility] Glucose [Mass/Vol] 148 mg/dL High 65-99 [facility] CBC AND AUTO DIFFon 08-04-20 24 ABSOLUTE BASOPHIL 0.1 X10E9/L Normal 0.0-0.2 [facility] Comment on above: Performed By: #### P INR, 17505-0, 85287-6, CBCA, 39211-8, CMP, 4548-4, 6873-4 #### [facility] ([id number]) [address] [place] [address] 11079 #### HA1C #### [facility] ([id number]) [address], [address] [place] [address] ABSOLUTE NEUTROPHIL 2.4 X10E9/L Normal 1.5-6.6 [facility] Comment on above: Performed By: #### P INR, 01339-0, 92707-0, CBCA, 87450-7, CMP, 4548-4, 6873-4 #### [facility] ([id number]) [address] [place] [address] 68171 #### HA1C #### [facility] ([id number]) [address], [address] [place] [address] Basophils/100 WBC (Bld) 1.2 % Normal [facility] Comment on above: Performed By: #### P INR, 21410-2, 18820-8, CBCA, 57018-4, CMP, 4548-4, 6873-4 #### [facility] ([id number]) [address] [place] [address] 63946 #### HA1C #### [facility] ([id number]) [address], [address] [place] [address] Eosinophils (Bld) [#/Vol] 0.4 10*3/uL Normal 0.0-0.4 [facility] Comment on above: Performed By: #### P INR, 20410-0, 70882-0, CBCA, 39583-3, CMP, 4548-4, 6873-4 #### [facility] ([id number]) [address] [place] [address] 70179 #### HA1C #### [facility] ([id number]) [address], [address] [place] [address] Eosinophils/100 WBC (Bld) 10.0 % Normal [facility] Comment on above: Performed By: #### P INR, 05047-6, 98900-3, CBCA, 75410-6, CMP, 4548-4, 6873-4 #### [facility] ([id number]) [address] [place] [address] 43138 #### HA1C #### [facility] ([id number]) [address], [address] [place] [address] Erythrocyte distribution width (RBC) [Ratio] 15.3 % High 11.5-15.0 [facility] Comment on above: Performed By: #### P INR, 96338-2, 41570-6, CBCA, 78044-5, CMP, 4548-4, 6873-4 #### [facility] ([id number]) [address] [place] [address] 40471 #### HA1C #### [facility] ([id number]) [address], [address] [place] [address] Hematocrit (Bld) [Volume fraction] 33.6 % Low 39-49 [facility] Comment on above: Performed By: #### P INR, 77236-4, 60123-3, CBCA, 28119-0, CMP, 4548-4, 6873-4 #### [facility] ([id number]) [address] [place] [address] 22976 #### HA1C #### [facility] ([id number]) [address], [address] [place] [address] Hemoglobin (Bld) [Mass/Vol] 11.3 g/dL Low 13.0-17.0 [facility] Comment on above: Performed By: #### P INR, 50596-8, 93080-0, CBCA, 84664-8, CMP, 4548-4, 6873-4 #### [facility] ([id number]) [address] [place] [address] 20859 #### HA1C #### [facility] ([id number]) [address], [address] [place] [address] Lymphocytes (Bld) [#/Vol] 1.1 10*3/uL Normal 1.0-3.5 [facility] Comment on above: Performed By: #### P INR, 67066-1, 23501-4, CBCA, 13280-3, CMP, 4548-4, 6873-4 #### [facility] ([id number]) [address] [place] [address] 36927 #### HA1C #### [facility] ([id number]) [address], [address] [place] [address] Lymphocytes/100 WBC (Bld) 24.4 % Normal [facility] Comment on above: Performed By: #### P INR, 66998-8, 38422-8, CBCA, 98085-9, CMP, 4548-4, 6873-4 #### [facility] ([id number]) [address] [place] [address] 13305 #### HA1C #### [facility] ([id number]) [address], [address] [place] [address] MCH (RBC) [Entitic mass] 27.2 pg Normal 27-34 [facility] Comment on above: Performed By: #### P INR, 96177-8, 20375-8, CBCA, 96823-8, CMP, 4548-4, 6873-4 #### [facility] ([id number]) [address] [place] [address] 49562 #### HA1C #### [facility] ([id number]) [address], [address] [place] [address] MCHC (RBC) [Mass/Vol] 33.5 g/dL Normal 32-36 [facility] Comment on above: Performed By: #### P INR, 87316-1, 81514-7, CBCA, 61992-1, CMP, 4548-4, 6873-4 #### [facility] ([id number]) [address] [place] [address] 19351 #### HA1C #### [facility] ([id number]) [address], [address] [place] [address] MCV (RBC) [Entitic vol] 81 fL Normal 80-100 P [facility] Comment on above: Performed By: #### P INR, 56802-5, 17619-7, CBCA, 93062-9, CMP, 4548-4, 6873-4 #### [facility] ([id number]) [address] [place] [address] 64469 #### HA1C #### [facility] ([id number]) [address], [address] [place] [address] Monocytes (Bld) [#/Vol] 0.4 10*3/uL Normal 0-0.9 [facility] Comment on above: Performed By: #### P INR, 59102-7, 49525-8, CBCA, 90405-1, CMP, 4548-4, 6873-4 #### [facility] ([id number]) [address] [place] [address] 91249 #### HA1C #### [facility] ([id number]) [address], [address] [place] [address] Monocytes/100 WBC (Bld) 9.7 % Normal P [facility] Comment on above: Performed By: #### P INR, 25512-9, 10213-5, CBCA, 63125-9, CMP, 4548-4, 6873-4 #### [facility] ([id number]) [address] [place] [address] 88592 #### HA1C #### [facility] ([id number]) [address], [address] [place] [address] Neutrophils/100 WBC (Bld) 54.7 % Normal [facility] Comment on above: Performed By: #### P INR, 62778-4, 06866-2, CBCA, 36464-0, CMP, 4548-4, 6873-4 #### [facility] ([id number]) [address] [place] [address] 99061 #### HA1C #### [facility] ([id number]) [address], [address] [place] [address] Platelet mean volume (Bld) [Entitic vol] 7.1 fL Normal 7-12 [facility] Comment on above: Performed By: #### P INR, 26463-9, 74085-3, CBCA, 83839-5, CMP, 4548-4, 6873-4 #### [facility] ([id number]) [address] [place] [address] 19391 #### HA1C #### [facility] ([id number]) [address], [address] [place] [address] Platelets (Bld) [#/Vol] 282 10*3/uL Normal 150-450 [facility] Comment on above: Performed By: #### P INR, 20711-0, 18624-2, CBCA, 48966-2, CMP, 4548-4, 6873-4 #### [facility] ([id number]) [address] [place] [address] [place] [address] #### HA1C #### [facility] ([id number]) [address], [address] [place] [address] RBC COUNT 4.14 X10E12/L Normal 4.10-5.70 [facility] Comment on above: Performed By: #### P INR, 53761-0, 43561-8, CBCA, 14236-6, CMP, 4548-4, 6873-4 #### [facility] ([id number]) [address] [place] [address] 22979 #### HA1C #### [facility] ([id number]) [address] [place] [address], [address] [address] WBC (Bld) [#/Vol] 4.4 10*3/uL Normal 4.0-11.0 [facility] Comment on above: Performed By: #### P INR, 33428-3, 18828-3, CBCA, 32382-8, CMP, 4548-4, 6873-4 #### [facility] ([id number]) [address] [place] [address] 07183 #### HA1C #### [facility] ([id number]) [address] [place] [address], [address] [place] [address] COMPREHENSIVE METABOLIC PANE [place] 05-30-2024 Albumin [Mass/Vol] 3.3 g/dL Normal 3.2-5.3 [facility] Comment on above: Performed By: #### P INR, 39652-1, 90042-7, CBCA, 95337-6, CMP, 4548-4, 6873-4 #### [facility] ([id number]) [address] [place] [address] 89253 #### HA1C #### [facility] ([id number]) [address], [address] [place] [address] ALP [Catalytic activity/Vol] 82 U/L Normal 39-130 [facility] Comment on above: Performed By: #### P INR, 70672-8, 65560-5, CBCA, 70782-6, CMP, 4548-4, 6873-4 #### [facility] ([id number]) [address] [place] [address] 68201 #### HA1C #### [facility] ([id number]) [address], [address] [place] [address] ALT [Catalytic activity/Vol] 27 U/L Normal 0-40 [facility] Comment on above: Performed By: #### P INR, 86140-5, 59036-0, CBCA, 13335-6, CMP, 4548-4, 6873-4 #### [facility] ([id number]) [address] [place] [address] 71771 #### HA1C #### [facility] ([id number]) [address], [address] [place] [address] Anion gap [Moles/Vol] 7 mmol/L Normal 5-15 [facility] Comment on above: Performed By: #### P INR, 38623-4, 53978-7, CBCA, 25586-7, CMP, 4548-4, 6873-4 #### [facility] ([id number]) [address] [place] [address] 75757 #### HA1C #### [facility] ([id number]) [address], [address] [place] [address] AST [Catalytic activity/Vol] 21 U/L Normal 0-41 [facility] Comment on above: Performed By: #### P INR, 64765-8, 98093-1, CBCA, 63718-8, CMP, 4548-4, 6873-4 #### [facility] ([id number]) [address] [place] [address] 99897 #### HA1C #### [facility] ([id number]) [address], [address] [place] [address] Bilirubin [Mass/Vol] 0.6 mg/dL Normal 0.3-1.2 [facility] Comment on above: Performed By: #### P INR, 79607-6, 12902-9, CBCA, 54568-8, CMP, 4548-4, 6873-4 #### [facility] ([id number]) [address] [place] [address] 25171 #### HA1C #### [facility] ([id number]) [address], [address] [place] [address] Calcium [Mass/Vol] 8.2 mg/dL Low 8.5-10.5 [facility] Comment on above: Performed By: #### P INR, 71165-0, 16623-1, CBCA, 69860-9, CMP, 4548-4, 6873-4 #### [facility] ([id number]) [address] [place] [address] 63114 #### HA1C #### [facility] ([id number]) [address], [address] [place] [address] Chloride [Moles/Vol] 103 mmol/L Normal 98-109 [facility] Comment on above: Performed By: #### P INR, 98462-9, 26431-1, CBCA, 27460-5, CMP, 4548-4, 6873-4 #### [facility] ([id number]) [address] [place] [address] 47065 #### HA1C #### [facility] ([id number]) [address], [address] [place] [address] CO2 [Moles/Vol] 23 mmol/L Normal 22-32 [facility] Comment on above: Performed By: #### P INR, 79102-9, 33593-7, CBCA, 95589-5, CMP, 4548-4, 6873-4 #### [facility] ([id number]) [address] [place] [address] 81473 #### HA1C #### [facility] ([id number]) [address], [address] [place] [address] Creatinine [Mass/Vol] 0.69 mg/dL Low 0.70-1.20 [facility] Comment on above: Result Comment: METH OD TRACEABLE TO IDMS STANDARD Performed By: #### P INR, 10030-8, 93234-5, CBCA, 01444-7, CMP, 4548-4, 6873-4 #### [facility] ([id number]) [address] [place] [address] 19431 #### HA1C #### [facility] ([id number]) [address], [address] [place] [address] eGFR (CKD-EPI) NON-RACE DEPENDENT >90 Normal >59 [facility] Comment on above: Result Comment: Reported eGFR is based on the CKD-EPI 2021 equation that does not use a race coefficient. Performed By: #### P INR, 83182-0, 14289-6, CBCA, 21762-7, CMP, 4548-4, 6873-4 #### [facility] ([id number]) [address] [place] [address] 69221 #### HA1C #### [facility] ([id number]) [address], [address] [place] [address] Glucose [Mass/Vol] 132 mg/dL High 65-99 [facility] Comment on above: Performed By: #### P INR, 65460-7, 65489-8, CBCA, 74724-1, CMP, 4548-4, 6873-4 #### [facility] ([id number]) [address] [place] [address] 74728 #### HA1C #### [facility] ([id number]) [address], [address] [place] [address] Potassium [Moles/Vol] 3.6 mmol/L Normal 3.5-5.0 [facility] Comment on above: Performed By: #### P INR, 95824-7, 54178-7, CBCA, 67706-8, CMP, 4548-4, 6873-4 #### [facility] ([id number]) [address] [place] [address] 10110 #### HA1C #### [facility] ([id number]) [address], [address] [place] [address] Protein [Mass/Vol] 6.4 g/dL Normal 6.0-8.0 [facility] Comment on above: Performed By: #### P INR, 22099-6, 98379-0, CBCA, 13958-1, CMP, 4548-4, 6873-4 #### [facility] ([id number]) [address] [place] [address] 71567 #### HA1C #### [facility] ([id number]) [address], [address] [place] [address] Sodium [Moles/Vol] 133 mmol/L Low 134-146 [facility] Comment on above: Performed By: #### P INR, 56273-8, 33440-0, CBCA, 03289-6, CMP, 4548-4, 6873-4 #### [facility] ([id number]) [address] [place] [address] 96594 #### HA1C #### [facility] ([id number]) [address], [address] [place] [address] Urea nitrogen [Mass/Vol] 25 mg/dL Normal 5-27 [facility] Comment on above: Performed By: #### P INR, 70535-9, 50952-6, CBCA, 57055-4, CMP, 4548-4, 6873-4 #### [facility] ([id number]) [address] [place] [address] 75293 #### HA1C #### [facility] ([id number]) [address], [address] [place] [address] Glucose Glucometer (dC) [M ass/Vol]on 05-30-2024 Glucose [Mass/Vol] 194 mg/dL High 65-99 [facility] Glucose [Mass/Vol] 176 mg/dL High 65-99 [facility] Glucose [Mass/Vol] 131 mg/dL High 65-99 [facility] Glucose [Mass/Vol] 122 mg/dL High 65-99 [facility] CBC AND AUTO DIFFon 05-29-20 24 ABSOLUTE BASOPHIL 0.0 X10E9/L Normal 0.0-0.2 [facility] Comment on above: Performed By: #### P INR, 15553-7, 77794-4, CBCA, 04868-1, CMP, 4548-4, 6873-4 #### [facility] ([id number]) [address] [place] [address] 13561 #### HA1C #### [facility] ([id number]) [facility], [address] [place] [address] ABSOLUTE NEUTROPHIL 3.0 X10E9/L Normal 1.5-6.6 [facility] Comment on above: Performed By: #### P INR, 00046-6, 04077-9, CBCA, 12199-4, CMP, 4548-4, 6873-4 #### [facility] ([id number]) [address] [place] [address] 22159 #### HA1C #### [facility] ([id number]) [address], [address] [place] [address] Basophils/100 WBC (Bld) 0.5 % Normal P [facility] Comment on above: Performed By: #### P INR, 97343-9, 24946-1, CBCA, 49000-0, CMP, 4548-4, 6873-4 #### [facility] ([id number]) [address] [place] [address] 67341 #### HA1C #### [facility] ([id number]) [address], [address] [place] [address] Eosinophils (Bld) [#/Vol] 0.3 10*3/uL Normal 0.0-0.4 [facility] Comment on above: Performed By: #### P INR, 61412-5, 64782-0, CBCA, 74017-9, CMP, 4548-4, 6873-4 #### [facility] ([id number]) [address] [place] [address] 98949 #### HA1C #### [facility] ([id number]) [address], [address] [place] [address] Eosinophils/100 WBC (Bld) 6.0 % Normal [facility] Comment on above: Performed By: #### P INR, 14292-4, 57505-5, CBCA, 74240-5, CMP, 4548-4, 6873-4 #### [facility] ([id number]) [address] [place] [address] 41252 #### HA1C #### [facility] ([id number]) [address], [address] [place] [address] Erythrocyte distribution width (RBC) [Ratio] 15.7 % High 11.5-15.0 [facility] Comment on above: Performed By: #### P INR, 06191-0, 90365-0, CBCA, 91978-9, CMP, 4548-4, 6873-4 #### [facility] ([id number]) [address] [place] [address] 07259 #### HA1C #### [facility] ([id number]) [address], [address] [place] [address] Hematocrit (Bld) [Volume fraction] 31.8 % Low 39-49 [facility] Comment on above: Performed By: #### P INR, 96372-8, 20673-1, CBCA, 19522-2, CMP, 4548-4, 6873-4 #### [facility] ([id number]) [address] [place] [address] 14955 #### HA1C #### [facility] ([id number]) [address], [address] [place] [address] Hemoglobin (Bld) [Mass/Vol] 10.7 g/dL Low 13.0-17.0 [facility] Comment on above: Performed By: #### P INR, 63077-4, 23608-6, CBCA, 59501-8, CMP, 4548-4, 6873-4 #### [facility] ([id number]) [address] [place] [address] 14846 #### HA1C #### [facility] ([id number]) [address], [address] [place] [address] Lymphocytes (Bld) [#/Vol] 0.7 10*3/uL Low 1.0-3.5 [facility] Comment on above: Performed By: #### P INR, 28382-4, 59868-4, CBCA, 58882-7, CMP, 4548-4, 6873-4 #### [facility] ([id number]) [address] [place] [address] 07424 #### HA1C #### [facility] ([id number]) [address], [address] [place] [address] Lymphocytes/100 WBC (Bld) 14.9 % Normal [facility] Comment on above: Performed By: #### P INR, 07893-4, 82786-4, CBCA, 87432-8, CMP, 4548-4, 6873-4 #### [facility] ([id number]) [address] [place] [address] 78252 #### HA1C #### [facility] ([id number]) [address] [address], [address] [place] [address] MCH (RBC) [Entitic mass] 27.7 pg Normal 27-34 [facility] Comment on above: Performed By: #### P INR, 83319-7, 04721-7, CBCA, 91317-0, CMP, 4548-4, 6873-4 #### [facility] ([id number]) [address] [place] [address] 83622 #### HA1C #### [facility] ([id number]) [address] [address], [address] [place] [address] MCHC (RBC) [Mass/Vol] 33.7 g/dL Normal 32-36 [facility] Comment on above: Performed By: #### P INR, 38575-0, 26830-9, CBCA, 17697-2, CMP, 4548-4, 6873-4 #### [facility] ([id number]) [address] [place] [address] 96073 #### HA1C #### [facility] ([id number]) [address], [address] [place] [address] MCV (RBC) [Entitic vol] 82 fL Normal 80-100 [facility] Comment on above: Performed By: #### P INR, 09974-3, 89448-8, CBCA, 80189-0, CMP, 4548-4, 6873-4 #### [facility] ([id number]) [address] [place] [address] 02719 #### HA1C #### [facility] ([id number]) [address], [address] [place] [address] Monocytes (Bld) [#/Vol] 0.5 10*3/uL Normal 0-0.9 [facility] Comment on above: Performed By: #### P INR, 26067-2, 08373-6, CBCA, 94090-1, CMP, 4548-4, 6873-4 #### [facility] ([id number]) [address] [place] [address] 53660 #### HA1C #### [facility] ([id number]) [address], [address] [place] [address] Monocytes/100 WBC (Bld) 11.2 % Normal [facility] Comment on above: Performed By: #### P INR, 50955-8, 77371-8, CBCA, 09912-0, CMP, 4548-4, 6873-4 #### [facility] ([id number]) [address] [place] [address] #### HA1C #### [facility] ([id number]) [address], [address] [place] [address] Neutrophils/100 WBC (Bld) 67.4 % Normal [facility] Comment on above: Performed By: #### P INR, 88803-0, 54001-0, CBCA, 57063-8, CMP, 4548-4, 6873-4 #### [facility] ([id number]) [address] [place] [address] #### HA1C #### [facility] ([id number]) [address], [address] [place] [address] Platelet mean volume (Bld) [Entitic vol] 7.4 fL Normal 7-12 [facility] Comment on above: Performed By: #### P INR, 81039-4, 99338-6, CBCA, 91340-9, CMP, 4548-4, 6873-4 #### [facility] ([id number]) [address] [place] [address] #### HA1C #### [facility] ([id number]) [address], [address] [place] [address] Platelets (Bld) [#/Vol] 263 10*3/uL Normal 150-450 [facility] Comment on above: Performed By: #### P INR, 41325-0, 30823-0, CBCA, 01306-4, CMP, 4548-4, 6873-4 #### [facility] ([id number]) [address] [place] [address] #### HA1C #### [facility] ([id number]) [address], [address] [place] [address] RBC COUNT 3.86 X10E12/L Low 4.10-5.70 [facility] Comment on above: Performed By: #### P INR, 49406-5, 64047-8, CBCA, 68066-8, CMP, 4548-4, 6873-4 #### [facility] ([id number]) [address] [place] [address] 240[address] #### HA1C #### [facility] ([id number]) [address], [address] [place] [address] WBC (Bld) [#/Vol] 4.4 10*3/uL Normal 4.0-11.0 [facility] Comment on above: Performed By: #### P INR, 55030-2, 01233-0, CBCA, 62288-9, CMP, 4548-4, 6873-4 #### [facility] ([id number]) [address] [place] [address] #### HA1C #### [facility] ([id number]) [address], [address] [place] [address] COMPREHENSIVE METABOLIC PANE [place] 05-29-2024 Albumin [Mass/Vol] 3.1 g/dL Low 3.2-5.3 [facility] Comment on above: Performed By: #### P INR, 52182-8, 31871-4, CBCA, 57354-8, CMP, 4548-4, 6873-4 #### [facility] ([id number]) [address] [place] [address] #### HA1C #### [facility] ([id number]) [address], [address] [place] [address] ALP [Catalytic activity/Vol] 79 U/L Normal 39-130 [facility] Comment on above: Performed By: #### P INR, 33071-9, 71010-8, CBCA, 62457-6, CMP, 4548-4, 6873-4 #### [facility] ([id number]) [address] [place] [address] #### HA1C #### [facility] ([id number]) [address], [address] [place] [address] ALT [Catalytic activity/Vol] 23 U/L Normal 0-40 [facility] Comment on above: Performed By: #### P INR, 10394-3, 38223-0, CBCA, 63743-3, CMP, 4548-4, 6873-4 #### [facility] ([id number]) [address] [place] [address] #### HA1C #### [facility] ([id number]) [address], [address] [place] [address] Anion gap [Moles/Vol] 9 mmol/L Normal 5-15 [facility] Comment on above: Performed By: #### P INR, 63673-8, 36478-0, CBCA, 05342-7, CMP, 4548-4, 6873-4 #### [facility] ([id number]) [address] [place] [address] #### HA1C #### [facility] ([id number]) [address], [address] [place] [address] AST [Catalytic activity/Vol] 20 U/L Normal 0-41 [facility] Comment on above: Performed By: #### P INR, 93914-7, 97137-4, CBCA, 69877-6, CMP, 4548-4, 6873-4 #### [facility] ([id number]) [address] [place] [address] 32084 #### HA1C #### [facility] ([id number]) [address], [address] [place] [address] Bilirubin [Mass/Vol] 0.5 mg/dL Normal 0.3-1.2 [facility] Comment on above: Performed By: #### P INR, 22135-7, 09357-0, CBCA, 32463-3, CMP, 4548-4, 6873-4 #### [facility] ([id number]) [address] [place] [address] 28917 #### HA1C #### [facility] ([id number]) [address], [address] [place] [address] Calcium [Mass/Vol] 8.6 mg/dL Normal 8.5-10.5 [facility] Comment on above: Performed By: #### P INR, 11887-0, 68642-6, CBCA, 03357-8, CMP, 4548-4, 6873-4 #### [facility] ([id number]) [address] [place] [address] 05477 #### HA1C #### [facility] ([id number]) [address], [address] [place] [address] Chloride [Moles/Vol] 102 mmol/L Normal 98-109 [facility] Comment on above: Performed By: #### P INR, 26180-3, 04925-3, CBCA, 99405-5, CMP, 4548-4, 6873-4 #### [facility] ([id number]) [address] [place] [address] 38918 #### HA1C #### [facility] ([id number]) [address], [address] [place] [address] CO2 [Moles/Vol] 24 mmol/L Normal 22-32 [facility] Comment on above: Performed By: #### P INR, 89924-1, 98260-2, CBCA, 19099-5, CMP, 4548-4, 6873-4 #### [facility] ([id number]) [address] [place] [address] 15881 #### HA1C #### [facility] ([id number]) [address], [address] [place] [address] Creatinine [Mass/Vol] 1.13 mg/dL Normal 0.70-1.20 [facility] Comment on above: Result Comment: METH OD TRACEABLE TO IDMS STANDARD Performed By: #### P INR, 90636-8, 36025-9, CBCA, 90845-7, CMP, 4548-4, 6873-4 #### [facility] ([id number]) [address] [place] [address] 30332 #### HA1C #### [facility] ([id number]) [address], [address] [place] [address] GFR/1.73 sq M.predicted among non-blacks MDRD (S/P/Bld) [Vol rate/Area] 70 mL/min/{1.73_m2} Normal >59 [facility] Comment on above: Result Comment: Reported eGFR is based on the CKD-EPI 2020 equation that does not use a race coefficient. Performed By: #### P INR, 18348-3, 37840-1, CBCA, 09984-5, CMP, 4548-4, 6873-4 #### [facility] ([id number]) [address] [place] [address] 95382 #### HA1C #### [facility] ([id number]) [address], [address] [place] [address] Glucose [Mass/Vol] 133 mg/dL High 65-99 [facility] Comment on above: Performed By: #### P INR, 15576-2, 49720-2, CBCA, 88091-6, CMP, 4548-4, 6873-4 #### [facility] ([id number]) [address] [place] [address] 62230 #### HA1C #### [facility] ([id number]) [address], [address] [place] [address] Potassium [Moles/Vol] 3.5 mmol/L Normal 3.5-5.0 [facility] Comment on above: Performed By: #### P INR, 22941-6, 77069-5, CBCA, 99755-4, CMP, 4548-4, 6873-4 #### [facility] ([id number]) [address] [place] [address] 21148 #### HA1C #### [facility] ([id number]) [address], [address] [place] [address] Protein [Mass/Vol] 6.2 g/dL Normal 6.0-8.0 [facility] Comment on above: Performed By: #### P INR, 32271-2, 75096-6, CBCA, 04710-7, CMP, 4548-4, 6873-4 #### [facility] ([id number]) [address] [place] [address] 51343 #### HA1C #### [facility] ([id number]) [address], [address] [place] [address] Sodium [Moles/Vol] 135 mmol/L Normal 134-146 [facility] Comment on above: Performed By: #### P INR, 17604-0, 97978-2, CBCA, 32915-5, CMP, 4548-4, 6873-4 #### [facility] ([id number]) [address] [place] [address] 26832 #### HA1C #### [facility] ([id number]) [address], [address] [place] [address] Urea nitrogen [Mass/Vol] 52 mg/dL High 5-27 [facility] Comment on above: Performed By: #### P INR, 10259-7, 02561-9, CBCA, 80157-6, CMP, 4548-4, 6873-4 #### [facility] ([id number]) [address] [place] [address] 58753 #### HA1C #### [facility] ([id number]) [address], [address] [place] [address] Glucose Glucometer (BldC) [M ass/Vol]on 05-29-2024 Glucose [Mass/Vol] 167 mg/dL High 65-99 [facility] Glucose [Mass/Vol] 127 mg/dL High 65-99 [facility] Glucose [Mass/Vol] 168 mg/dL High 65-99 [facility] POTASSIUMon 05-29-2024 Potassium [Moles/Vol] 4.1 mmol/L Normal 3.5-5.0 [facility] Comment on above: Performed By: #### P INR, 59628-5, 69036-5, CBCA, 43503-2, CMP, 4548-4, 6873-4 #### [facility] ([id number]) [address] [place] [address] 66962 #### HA1C #### [facility] ([id number]) [address], [address] [place] [address] Potassium [Moles/Vol] 3.7 mmol/L Normal 3.5-5.0 [facility] Comment on above: Performed By: #### P INR, 54563-9, 80726-5, CBCA, 79902-1, CMP, 4548-4, 6873-4 #### [facility] ([id number]) [address] [place] [address] 16410 #### HA1C #### [facility] ([id number]) [address], [address] [place] [address] CBC AND AUTO DIFFon 05-28-20 24 ABSOLUTE BASOPHIL 0.0 X10E9/L Normal 0.0-0.2 [facility] Comment on above: Performed By: #### P INR, 66263-4, 31919-4, CBCA, 56203-1, CMP, 4548-4, 6873-4 #### [facility] ([id number]) [address] [place] [address] 32798 #### HA1C #### [facility] ([id number]) [address], [address] [place] [address] ABSOLUTE NEUTROPHIL 5.2 X10E9/L Normal 1.5-6.6 [facility] Comment on above: Performed By: #### P INR, 27520-2, 24433-5, CBCA, 54904-0, CMP, 4548-4, 6873-4 #### [facility] ([id number]) [address] [place] [address] 03953 #### HA1C #### [facility] ([id number]) [address], [address] [place] [address] Basophils/100 WBC (Bld) 0.2 % Normal P [facility] Comment on above: Performed By: #### P INR, 45756-4, 39612-9, CBCA, 31457-2, CMP, 4548-4, 6873-4 #### [facility] ([id number]) [address] [place] [address] 62565 #### HA1C #### [facility] ([id number]) [address], [address] [place] [address] Eosinophils (Bld) [#/Vol] 0.1 10*3/uL Normal 0.0-0.4 [facility] Comment on above: Performed By: #### P INR, 38010-7, 37840-3, CBCA, 35013-4, CMP, 4548-4, 6873-4 #### [facility] ([id number]) [address] [place] [address] 19987 #### HA1C #### [facility] ([id number]) [address], [address] [place] [address] Eosinophils/100 WBC (Bld) 1.1 % Normal [facility] Comment on above: Performed By: #### P INR, 26033-5, 07825-8, CBCA, 74140-9, CMP, 4548-4, 6873-4 #### [facility] ([id number]) [address] [place] [address] 68319 #### HA1C #### [facility] ([id number]) [address], [address] [place] [address] Erythrocyte distribution width (RBC) [Ratio] 15.6 % High 11.5-15.0 [facility] Comment on above: Performed By: #### P INR, 18204-8, 11880-1, CBCA, 75340-5, CMP, 4548-4, 6873-4 #### [facility] ([id number]) [address] [place] [address] 51406 #### HA1C #### [facility] ([id number]) [address], [address] [place] [address] Hematocrit (Bld) [Volume fraction] 33.8 % Low 39-49 [facility] Comment on above: Performed By: #### P INR, 10438-6, 52178-7, CBCA, 51797-4, CMP, 4548-4, 6873-4 #### [facility] ([id number]) [address] [place] [address] 20582 #### HA1C #### [facility] ([id number]) [address], [address] [place] [address] Hemoglobin (Bld) [Mass/Vol] 11.2 g/dL Low 13.0-17.0 [facility] Comment on above: Performed By: #### P INR, 32424-1, 41769-1, CBCA, 84719-6, CMP, 4548-4, 6873-4 #### [facility] ([id number]) [address] [place] [address] 81894 #### HA1C #### [facility] ([id number]) [address], [address] [place] [address] Lymphocytes (Bld) [#/Vol] 0.6 10*3/uL Low 1.0-3.5 [facility] Comment on above: Performed By: #### P INR, 12738-1, 11902-8, CBCA, 33812-3, CMP, 4548-4, 6873-4 #### [facility] ([id number]) [address] [place] [address] 10432 #### HA1C #### [facility] ([id number]) [address], [address] [place] [address] Lymphocytes/100 WBC (Bld) 9.4 % Normal [facility] Comment on above: Performed By: #### P INR, 78006-7, 65997-5, CBCA, 79091-0, CMP, 4548-4, 6873-4 #### [facility] ([id number]) [address] [place] [address] 02307 #### HA1C #### [facility] ([id number]) [address], [address] [place] [address] MCH (RBC) [Entitic mass] 27.4 pg Normal 27-34 [facility] Comment on above: Performed By: #### P INR, 69379-3, 39964-8, CBCA, 39648-2, CMP, 4548-4, 6873-4 #### [facility] ([id number]) [address] [place] [address] 89012 #### HA1C #### [facility] ([id number]) [address], [address] [place] [address] MCHC (RBC) [Mass/Vol] 33.2 g/dL Normal 32-36 [facility] Comment on above: Performed By: #### P INR, 54015-1, 55242-0, CBCA, 68708-6, CMP, 4548-4, 6873-4 #### [facility] ([id number]) [address] [place] [address] 46031 #### HA1C #### [facility] ([id number]) [address], [address] [place] [address] MCV (RBC) [Entitic vol] 83 fL Normal 80-100 [facility] Comment on above: Performed By: #### P INR, 59936-0, 31000-0, CBCA, 86863-1, CMP, 4548-4, 6873-4 #### [facility] ([id number]) [address] [place] [address] 82780 #### HA1C #### [facility] ([id number]) [address], [address] [place] [address] Monocytes (Bld) [#/Vol] 0.6 10*3/uL Normal 0-0.9 [facility] Comment on above: Performed By: #### P INR, 01859-9, 85295-8, CBCA, 66533-5, CMP, 4548-4, 6873-4 #### [facility] ([id number]) [address] [place] [address] 42665 #### HA1C #### [facility] ([id number]) [address] [place] [address] Monocytes/100 WBC (Bld) 9.1 % Normal [facility] Comment on above: Performed By: #### P INR, 22381-7, 13009-2, CBCA, 63040-0, CMP, 4548-4, 6873-4 #### [facility] ([id number]) [address] [place] [address] 60446 #### HA1C #### [facility] ([id number]) [address] [place] [address] Neutrophils/100 WBC (Bld) 80.2 % Normal [facility] Comment on above: Performed By: #### P INR, 13260-2, 55092-7, CBCA, 33526-3, CMP, 4548-4, 6873-4 #### [facility] ([id number]) [address] [place] [address] 61965 #### HA1C #### [facility] ([id number]) [address], [address] [place] [address] Platelet mean volume (Bld) [Entitic vol] 7.8 fL Normal 7-12 [facility] Comment on above: Performed By: #### P INR, 14140-1, 17091-8, CBCA, 28595-1, CMP, 4548-4, 6873-4 #### [facility] ([id number]) [address] [place] [address] 52345 #### HA1C #### [facility] ([id number]) [address], [address] [place] [address] Platelets (Bld) [#/Vol] 263 10*3/uL Normal 150-450 [facility] Comment on above: Performed By: #### P INR, 28600-1, 76253-1, CBCA, 09985-5, CMP, 4548-4, 6873-4 #### [facility] ([id number]) [address] [place] [address] 77137 #### HA1C #### [facility] ([id number]) [address], [address] [place] [address] RBC COUNT 4.09 X10E12/L Low 4.10-5.70 [facility] Comment on above: Performed By: #### P INR, 86171-9, 10857-9, CBCA, 55653-0, CMP, 4548-4, 6873-4 #### [facility] ([id number]) [address] [place] [address] 75316 #### HA1C #### [facility] ([id number]) [address], [address] [place] [address] WBC (Bld) [#/Vol] 6.5 10*3/uL Normal 4.0-11.0 [facility] Comment on above: Performed By: #### P INR, 38938-5, 03400-0, CBCA, 76230-9, CMP, 4548-4, 6873-4 #### [facility] ([id number]) [address] [place] [address] 62894 #### HA1C #### [facility] ([id number]) [address], [address] [place] [address] COMPREHENSIVE METABOLIC PANE [place] 05-28-2024 Albumin [Mass/Vol] 3.6 g/dL Normal 3.2-5.3 [facility] Comment on above: Performed By: #### P INR, 09079-2, 99129-9, CBCA, 37358-2, CMP, 4548-4, 6873-4 #### [facility] ([id number]) [address] [place] [address] 41522 #### HA1C #### [facility] ([id number]) [address], [address] [place] [address] ALP [Catalytic activity/Vol] 91 U/L Normal 39-130 [facility] Comment on above: Performed By: #### P INR, 96581-3, 22479-6, CBCA, 43163-8, CMP, 4548-4, 6873-4 #### [facility] ([id number]) [address] [place] [address] 58328 #### HA1C #### [facility] ([id number]) [address], [address] [place] [address] ALT [Catalytic activity/Vol] 21 U/L Normal 0-40 [facility] Comment on above: Performed By: #### P INR, 59166-4, 42907-0, CBCA, 28220-8, CMP, 4548-4, 6873-4 #### [facility] ([id number]) [address] [place] [address] 28150 #### HA1C #### [facility] ([id number]) [address], [address] [place] [address] Anion gap [Moles/Vol] 12 mmol/L Normal 5-15 [facility] Comment on above: Performed By: #### P INR, 78208-8, 95540-2, CBCA, 54567-9, CMP, 4548-4, 6873-4 #### [facility] ([id number]) [address] [place] [address] 46386 #### HA1C #### [facility] ([id number]) [address], [address] [place] [address] AST [Catalytic activity/Vol] 18 U/L Normal 0-41 [facility] Comment on above: Performed By: #### P INR, 52855-0, 80469-4, CBCA, 26517-7, CMP, 4548-4, 6873-4 #### [facility] ([id number]) [address] [place] [address] 84157 #### HA1C #### [facility] ([id number]) [address], [address] [place] [address] Bilirubin [Mass/Vol] 0.7 mg/dL Normal 0.3-1.2 [facility] Comment on above: Performed By: #### P INR, 55953-5, 05388-5, CBCA, 59363-4, CMP, 4548-4, 6873-4 #### [facility] ([id number]) [address] [place] [address] 19076 #### HA1C #### [facility] ([id number]) [address], [address] [place] [address] Calcium [Mass/Vol] 8.9 mg/dL Normal 8.5-10.5 [facility] Comment on above: Performed By: #### P INR, 91351-4, 30054-8, CBCA, 51452-1, CMP, 4548-4, 6873-4 #### [facility] ([id number]) [address] [place] [address] 30285 #### HA1C #### [facility] ([id number]) [address], [address] [place] [address] Chloride [Moles/Vol] 98 mmol/L Normal 98-109 [facility] Comment on above: Performed By: #### P INR, 60294-0, 72440-4, CBCA, 26702-6, CMP, 4548-4, 6873-4 #### [facility] ([id number]) [address] [place] [address] 49741 #### HA1C #### [facility] ([id number]) [address], [address] [place] [address] CO2 [Moles/Vol] 23 mmol/L Normal 22-32 [facility] Comment on above: Performed By: #### P INR, 91606-2, 10096-3, CBCA, 61009-6, CMP, 4548-4, 6873-4 #### [facility] ([id number]) [address] [place] [address] 73585 #### HA1C #### [facility] ([id number]) [address], [address] [place] [address] Creatinine [Mass/Vol] 1.88 mg/dL High 0.70-1.20 [facility] Comment on above: Result Comment: METH OD TRACEABLE TO IDMS STANDARD Performed By: #### P INR, 96907-9, 04727-1, CBCA, 03839-8, CMP, 4548-4, 6873-4 #### [facility] ([id number]) [address] [place] [address] 89684 #### HA1C #### [facility] ([id number]) [address], [address] [place] [address] GFR/1.73 sq M.predicted among non-blacks MDRD (S/P/Bld) [Vol rate/Area] 38 mL/min/{1.73_m2} Low >59 [facility] Comment on above: Result Comment: Reported eGFR is based on the CKD-EPI 2020 equation that does not use a race coefficient. Performed By: #### P INR, 84036-6, 24325-3, CBCA, 96299-2, CMP, 4548-4, 6873-4 #### [facility] ([id number]) [address] [place] [address] 69661 #### HA1C #### [facility] ([id number]) [address] [place] [address] Glucose [Mass/Vol] 157 mg/dL High 65-99 [facility] Comment on above: Performed By: #### P INR, 41852-1, 57185-9, CBCA, 50828-0, CMP, 4548-4, 6873-4 #### [facility] ([id number]) [address] [place] [address] 89544 #### HA1C #### [facility] ([id number]) [address], [address] [place] [address] Potassium [Moles/Vol] 3.6 mmol/L Normal 3.5-5.0 [facility] Comment on above: Performed By: #### P INR, 52011-5, 75437-1, CBCA, 22229-3, CMP, 4548-4, 6873-4 #### [facility] ([id number]) [address] [place] [address] 80873 #### HA1C #### [facility] ([id number]) [address], [address] [place] [address] Protein [Mass/Vol] 6.8 g/dL Normal 6.0-8.0 [facility] Comment on above: Performed By: #### P INR, 23658-3, 49156-0, CBCA, 47981-3, CMP, 4548-4, 6873-4 #### [facility] ([id number]) [address] [place] [address] 34808 #### HA1C #### [facility] ([id number]) [address], [address] [place] [address] Sodium [Moles/Vol] 133 mmol/L Low 134-146 [facility] Comment on above: Performed By: #### P INR, 51855-5, 88950-7, CBCA, 98719-3, CMP, 4548-4, 6873-4 #### [facility] ([id number]) [address] [place] [address] 83178 #### HA1C #### [facility] ([id number]) [address], [address] [place] [address] Urea nitrogen [Mass/Vol] 87 mg/dL High 5-27 [facility] Comment on above: Performed By: #### P INR, 75123-0, 65384-9, CBCA, 72945-7, CMP, 4548-4, 6873-4 #### [facility] ([id number]) [address] [place] [address] 91554 #### HA1C #### [facility] ([id number]) [address] [place] [address] Glucose Glucometer (BldC) [M ass/Vol]on 05-28-2024 Glucose [Mass/Vol] 148 mg/dL High 65-99 [facility] Glucose [Mass/Vol] 174 mg/dL High 65-99 [facility] Glucose [Mass/Vol] 177 mg/dL High 65-99 [facility] MAGNESIUMon 05-28-2024 Magnesium [Mass/Vol] 2.1 mg/dL Normal 1.8-2.6 [facility] Comment on above: Performed By: #### P INR, 62531-9, 62565-1, CBCA, 41988-4, CMP, 4548-4, 6873-4 #### [facility] ([id number]) [address] [place] [address] #### HA1C #### [facility] ([id number]) [address], [address] [place] [address] PHOSPHORUSon 05-28-2024 Phosphate [Mass/Vol] 4.4 mg/dL Normal 2.4-4.9 [facility] Comment on above: Performed By: #### P INR, 11064-3, 49921-8, CBCA, 18218-9, CMP, 4548-4, 6873-4 #### [facility] ([id number]) [address] [place] [address] #### HA1C #### [facility] ([id number]) [address], [address] [place] [address] POTASSIUMon 05-28-2024 Potassium [Moles/Vol] 3.6 mmol/L Normal 3.5-5.0 [facility] Comment on above: Performed By: #### P INR, 78055-8, 29097-5, CBCA, 44366-5, CMP, 4548-4, 6873-4 #### [facility] ([id number]) [address] [place] [address] #### HA1C #### [facility] ([id number]) [address], [address] [place] [address] CBC AND AUTO DIFFon 05-27-20 24 ABSOLUTE BASOPHIL 0.0 X10E9/L Normal 0.0-0.2 [facility] Comment on above: Performed By: #### P INR, 23305-3, 26974-0, CBCA, 17560-8, CMP, 4548-4, 6873-4 #### [facility] ([id number]) [address] [place] [address] #### HA1C #### [facility] ([id number]) [address], [address] [place] [address] ABSOLUTE NEUTROPHIL 12.1 X10E9/L High 1.5-6.6 [facility] Comment on above: Performed By: #### P INR, 27470-4, 25565-6, CBCA, 69552-0, CMP, 4548-4, 6873-4 #### [facility] ([id number]) [address] [place] [address] #### HA1C #### [facility] ([id number]) [address], [address] [place] [address] Basophils/100 WBC (Bld) 0.3 % Normal P [facility] Comment on above: Performed By: #### P INR, 50992-3, 19822-0, CBCA, 86722-9, CMP, 4548-4, 6873-4 #### [facility] ([id number]) [address] [place] [address] #### HA1C #### [facility] ([id number]) [address], [address] [place] [address] Eosinophils (Bld) [#/Vol] 0.0 10*3/uL Normal 0.0-0.4 [facility] Comment on above: Performed By: #### P INR, 67668-1, 04928-2, CBCA, 56816-7, CMP, 4548-4, 6873-4 #### [facility] ([id number]) [address] [place] [address] #### HA1C #### [facility] ([id number]) [address], [address] [place] [address] Eosinophils/100 WBC (Bld) 0.2 % Normal [facility] Comment on above: Performed By: #### P INR, 26091-6, 59791-8, CBCA, 24946-7, CMP, 4548-4, 6873-4 #### [facility] ([id number]) [address] [place] [address] #### HA1C #### [facility] ([id number]) [address], [address] [address] Erythrocyte distribution width (RBC) [Ratio] 16.2 % High 11.5-15.0 [facility] Comment on above: Performed By: #### P INR, 70371-7, 63192-3, CBCA, 67756-5, CMP, 4548-4, 6873-4 #### [facility] ([id number]) [address] [place] [address] #### HA1C #### [facility] ([id number]) [address], [address] [place] [address] Hematocrit (Bld) [Volume fraction] 39.5 % Normal 39-49 [facility] Comment on above: Performed By: #### P INR, 49096-5, 67923-5, CBCA, 13454-0, CMP, 4548-4, 6873-4 #### [facility] ([id number]) [address] [place] [address] #### HA1C #### [facility] ([id number]) [address], [address] [place] [address] Hemoglobin (Bld) [Mass/Vol] 13.2 g/dL Normal 13.0-17.0 [facility] Comment on above: Performed By: #### P INR, 32456-0, 60428-9, CBCA, 02970-3, CMP, 4548-4, 6873-4 #### [facility] ([id number]) [address] [place] [address] #### HA1C #### [facility] ([id number]) [address], [address] [place] [address] Lymphocytes (Bld) [#/Vol] 0.4 10*3/uL Low 1.0-3.5 [facility] Comment on above: Performed By: #### P INR, 89213-9, 10628-2, CBCA, 09898-7, CMP, 4548-4, 6873-4 #### [facility] ([id number]) [address] [place] [address] 19361 #### HA1C #### [facility] ([id number]) [address], [address] [place] [address] Lymphocytes/100 WBC (Bld) 3.2 % Normal [facility] Comment on above: Performed By: #### P INR, 27147-7, 43175-5, CBCA, 26660-9, CMP, 4548-4, 6873-4 #### [facility] ([id number]) [address] [place] [address] 94061 #### HA1C #### [facility] ([id number]) [address], [address] [place] [address] MCH (RBC) [Entitic mass] 27.5 pg Normal 27-34 [facility] Comment on above: Performed By: #### P INR, 34615-1, 43565-1, CBCA, 54702-4, CMP, 4548-4, 6873-4 #### [facility] ([id number]) [address] [place] [address] 14059 #### HA1C #### [facility] ([id number]) [address], [address] [place] [address] MCHC (RBC) [Mass/Vol] 33.4 g/dL Normal 32-36 [facility] Comment on above: Performed By: #### P INR, 44785-5, 69901-5, CBCA, 76377-1, CMP, 4548-4, 6873-4 #### [facility] ([id number]) [address] [place] [address] 70093 #### HA1C #### [facility] ([id number]) [address], [address] [place] [address] MCV (RBC) [Entitic vol] 82 fL Normal 80-100 P [facility] Comment on above: Performed By: #### P INR, 83510-4, 04121-2, CBCA, 86936-5, CMP, 4548-4, 6873-4 #### [facility] ([id number]) [address] [place] [address] #### HA1C #### [facility] ([id number]) [address], [address] [place] [address] Monocytes (Bld) [#/Vol] 1.0 10*3/uL High 0-0.9 [facility] Comment on above: Performed By: #### P INR, 06002-8, 01244-0, CBCA, 08142-0, CMP, 4548-4, 6873-4 #### [facility] ([id number]) [address] [place] [address] 54771 #### HA1C #### [facility] ([id number]) [address], [address] [place] [address] Monocytes/100 WBC (Bld) 7.1 % Normal P [facility] Comment on above: Performed By: #### P INR, 00727-3, 30792-7, CBCA, 42422-2, CMP, 4548-4, 6873-4 #### [facility] ([id number]) [address] [place] [address] 80035 #### HA1C #### [facility] ([id number]) [address], [address] [place] [address] Neutrophils/100 WBC (Bld) 89.2 % Normal [facility] Comment on above: Performed By: #### P INR, 69501-6, 75104-4, CBCA, 96785-5, CMP, 4548-4, 6873-4 #### [facility] ([id number]) [address] [place] [address] 05375 #### HA1C #### [facility] ([id number]) [address], [address] [place] [address] Platelet mean volume (Bld) [Entitic vol] 8.0 fL Normal 7-12 [facility] Comment on above: Performed By: #### P INR, 69550-8, 29438-8, CBCA, 73539-5, CMP, 4548-4, 6873-4 #### [facility] ([id number]) [address] [place] [address] 41325 #### HA1C #### [facility] ([id number]) [address], [address] [place] [address] Platelets (Bld) [#/Vol] 296 10*3/uL Normal 150-450 [facility] Comment on above: Performed By: #### P INR, 42860-4, 38373-5, CBCA, 59443-4, CMP, 4548-4, 6873-4 #### [facility] ([id number]) [address] [place] [address] 87869 #### HA1C #### [facility] ([id number]) [address], [address] [place] [address] RBC COUNT 4.79 X10E12/L Normal 4.10-5.70 [facility] Comment on above: Performed By: #### P INR, 67292-0, 81736-7, CBCA, 63512-3, CMP, 4548-4, 6873-4 #### [facility] ([id number]) [address] [place] [address] 56302 #### HA1C #### [facility] ([id number]) [address], [address] [place] [address] WBC (Bld) [#/Vol] 13.5 10*3/uL High 4.0-11.0 [facility] Comment on above: Performed By: #### P INR, 88939-8, 19069-0, CBCA, 00475-1, CMP, 4548-4, 6873-4 #### [facility] ([id number]) [address] [place] [address] 62796 #### HA1C #### [facility] ([id number]) [address], [address] [place] [address] COMPREHENSIVE METABOLIC PANE [place] 05-27-2024 Albumin [Mass/Vol] 4.6 g/dL Normal 3.2-5.3 [facility] Comment on above: Performed By: #### P INR, 47950-1, 99186-0, CBCA, 34464-3, CMP, 4548-4, 6873-4 #### [facility] ([id number]) [address] [place] [address] 17227 #### HA1C #### [facility] ([id number]) [address], [address] [place] [address] ALP [Catalytic activity/Vol] 112 U/L Normal 39-130 [facility] Comment on above: Performed By: #### P INR, 76329-1, 71961-0, CBCA, 59979-2, CMP, 4548-4, 6873-4 #### [facility] ([id number]) [address] [place] [address] 85042 #### HA1C #### [facility] ([id number]) [address], [address] [place] [address] ALT [Catalytic activity/Vol] 23 U/L Normal 0-40 [facility] Comment on above: Performed By: #### P INR, 11404-3, 77819-5, CBCA, 30589-4, CMP, 4548-4, 6873-4 #### [facility] ([id number]) [address] [place] [address] 48092 #### HA1C #### [facility] ([id number]) [address] [facility], [address] [place] [address] Anion gap [Moles/Vol] 13 mmol/L Normal 5-15 [facility] Comment on above: Performed By: #### P INR, 54408-4, 58609-6, CBCA, 42208-4, CMP, 4548-4, 6873-4 #### [facility] ([id number]) [address] [place] [address] 65552 #### HA1C #### [facility] ([id number]) [address], [address] [place] [address] AST [Catalytic activity/Vol] 21 U/L Normal 0-41 [facility] Comment on above: Performed By: #### P INR, 70523-6, 57000-9, CBCA, 39779-3, CMP, 4548-4, 6873-4 #### [facility] ([id number]) [address] [place] [address] 93844 #### HA1C #### [facility] ([id number]) [address], [address] [place] [address] Bilirubin [Mass/Vol] 0.7 mg/dL Normal 0.3-1.2 [facility] Comment on above: Performed By: #### P INR, 79237-0, 86639-9, CBCA, 45529-1, CMP, 4548-4, 6873-4 #### [facility] ([id number]) [address] [place] [address] 88647 #### HA1C #### [facility] ([id number]) [address] [facility], [address] [place] [address] Calcium [Mass/Vol] 9.6 mg/dL Normal 8.5-10.5 [facility] Comment on above: Performed By: #### P INR, 99966-5, 53770-6, CBCA, 51172-8, CMP, 4548-4, 6873-4 #### [facility] ([id number]) [address] [place] [address] 96713 #### HA1C #### [facility] ([id number]) [address], [address] [place] [address] Chloride [Moles/Vol] 94 mmol/L Low 98-109 [facility] Comment on above: Performed By: #### P INR, 08289-1, 32356-5, CBCA, 23030-1, CMP, 4548-4, 6873-4 #### [facility] ([id number]) [address] [place] [address] 69964 #### HA1C #### [facility] ([id number]) [address], [address] [place] [address] CO2 [Moles/Vol] 21 mmol/L Low 22-32 [facility] Comment on above: Performed By: #### P INR, 07639-1, 98344-7, CBCA, 06809-7, CMP, 4548-4, 6873-4 #### [facility] ([id number]) [address] [place] [address] 94106 #### HA1C #### [facility] ([id number]) [address] [facility], [address] [place] [address] Creatinine [Mass/Vol] 2.75 mg/dL High 0.70-1.20 [facility] Comment on above: Result Comment: METH OD TRACEABLE TO IDMS STANDARD Performed By: #### P INR, 39645-6, 90040-5, CBCA, 90252-9, CMP, 4548-4, 6873-4 #### [facility] ([id number]) [address] [place] [address] 74258 #### HA1C #### [facility] ([id number]) [address] [facility], [address] [place] [address] GFR/1.73 sq M.predicted among non-blacks MDRD (S/P/Bld) [Vol rate/Area] 24 mL/min/{1.73_m2} Low >59 [facility] Comment on above: Result Comment: Reported eGFR is based on the CKD-EPI 2020 equation that does not use a race coefficient. Performed By: #### P INR, 60286-5, 97486-5, CBCA, 11696-5, CMP, 4548-4, 6873-4 #### [facility] ([id number]) [address] [place] [address] 66940 #### HA1C #### [facility] ([id number]) [address] [facility], [address] [place] [address] Glucose [Mass/Vol] 223 mg/dL High 65-99 [facility] Comment on above: Performed By: #### P INR, 29057-1, 33203-2, CBCA, 82290-9, CMP, 4548-4, 6873-4 #### [facility] ([id number]) [address] [place] [address] 32429 #### HA1C #### [facility] ([id number]) [address], [address] [place] [address] Potassium [Moles/Vol] 4.9 mmol/L Normal 3.5-5.0 [facility] Comment on above: Performed By: #### P INR, 17791-0, 48844-2, CBCA, 78536-9, CMP, 4548-4, 6873-4 #### [facility] ([id number]) [address] [place] [address] 17940 #### HA1C #### [facility] ([id number]) [address] [facility], [address] [place] [address] Protein [Mass/Vol] 8.2 g/dL High 6.0-8.0 [facility] Comment on above: Performed By: #### P INR, 63640-5, 48260-2, CBCA, 59212-0, CMP, 4548-4, 6873-4 #### [facility] ([id number]) [address] [place] [address] 57614 #### HA1C #### [facility] ([id number]) [address], [address] [place] [address] Sodium [Moles/Vol] 128 mmol/L Low 134-146 [facility] Comment on above: Performed By: #### P INR, 29860-7, 04147-3, CBCA, 80493-0, CMP, 4548-4, 6873-4 #### [facility] ([id number]) [address] [place] [address] 70830 #### HA1C #### [facility] ([id number]) [address], [address] [place] [address] Urea nitrogen [Mass/Vol] 106 mg/dL High 5-27 [facility] Comment on above: Performed By: #### P INR, 23767-2, 46793-7, CBCA, 91901-7, CMP, 4548-4, 6873-4 #### [facility] ([id number]) [address] [place] [address] 46824 #### HA1C #### [facility] ([id number]) [address], [address] [place] [address] Glucose Glucometer (BldC) [M ass/Vol]on 05-27-2024 Glucose [Mass/Vol] 170 mg/dL High 65-99 [facility] MAGNESIUMon 05-27-2024 Magnesium [Mass/Vol] 2.4 mg/dL Normal 1.8-2.6 [facility] Comment on above: Performed By: #### P INR, 40664-4, 92677-3, CBCA, 72225-8, CMP, 4548-4, 6873-4 #### [facility] ([id number]) [address] [place] [address] 41073 #### HA1C #### [facility] ([id number]) [address], [address] [place] [address] Troponin I.cardiac High sens itivity method [Mass/Vol]on 05-27-2024 1 HOUR TROP I, HIGH SENSITIVITY 11 ng/L Normal <21 [facility] Comment on above: Performed By: #### P INR, 98896-8, 00413-7, CBCA, 18080-1, CMP, 4548-4, 6873-4 #### [facility] ([id number]) [address] [place] [address] 25564 #### HA1C #### [facility] ([id number]) [address], [address] [place] [address] TROPONIN I, HIGH SENSITIVITY 10 ng/L Normal <21 [facility] Comment on above: Performed By: #### P INR, 36687-5, 44109-8, CBCA, 11537-1, CMP, 4548-4, 6873-4 #### [facility] ([id number]) [address] [place] [address] 09861 #### HA1C #### [facility] ([id number]) [address] [facility], [address] [place] [address] URN MACROSCOPIC NURon 2023 BILIRUBIN ALLYN Negative Normal NEG [facility] Comment on above: Performed By: #### P INR, 69215-1, 23900-7, CBCA, 18003-0, CMP, 4548-4, 6873-4 #### [facility] ([id number]) [address] [place] [address] 50233 #### HA1C #### [facility] ([id number]) [address] [facility], [address] [place] [address] BLOOD/HGB ALLYN Large Abnormal NEG [facility] Comment on above: Performed By: #### P INR, 92083-4, 27040-0, CBCA, 87636-7, CMP, 4548-4, 6873-4 #### [facility] ([id number]) [address] [place] [address] 91306 #### HA1C #### [facility] ([id number]) [address] [facility], [address] [place] [address] GLUCOSE ALLYN Negative Normal NEG [facility] Comment on above: Performed By: #### P INR, 01615-4, 07095-3, CBCA, 60326-9, CMP, 4548-4, 6873-4 #### [facility] ([id number]) [address] [place] [address] 52280 #### HA1C #### [facility] ([id number]) [address], [address] [place] [address] KETONES ALLYN Negative Normal NEG [facility] Comment on above: Performed By: #### P INR, 02196-7, 11265-3, CBCA, 70579-5, CMP, 4548-4, 6873-4 #### [facility] ([id number]) [address] [place] [address] 08761 #### HA1C #### [facility] ([id number]) [address] [facility], [address] [place] [address] LEUKOCYTE ESTERASE ALLYN Negative Normal NEG [facility] Comment on above: Performed By: #### P INR, 17493-6, 02668-5, CBCA, 42526-4, CMP, 4548-4, 6873-4 #### [facility] ([id number]) [address] [place] [address] 25803 #### HA1C #### [facility] ([id number]) [address] [facility], [address] [place] [address] NITRITE ALLYN Negative Normal NEG [facility] Comment on above: Performed By: #### P INR, 01489-2, 42831-5, CBCA, 39209-0, CMP, 4548-4, 6873-4 #### [facility] ([id number]) [address] [place] [address] 19885 #### HA1C #### [facility] ([id number]) [address] [facility], [address] [place] [address] PH ALLYN 5.5 Normal 5.0-8.5 [facility] Comment on above: Performed By: #### P INR, 86427-4, 20974-0, CBCA, 99195-2, CMP, 4548-4, 6873-4 #### [facility] ([id number]) [address] [place] [address] 56752 #### HA1C #### [facility] ([id number]) [address] [facility], [address] [place] [address] PROTEIN ALLYN 30 mg/dL Abnormal NEG [facility] Comment on above: Performed By: #### P INR, 56488-1, 52292-9, CBCA, 17905-2, CMP, 4548-4, 6873-4 #### [facility] ([id number]) [address] [place] [address] 89555 #### HA1C #### [facility] ([id number]) [address] [place] [address], [address] [address] SPECIFIC GRAVITY ALLYN 1.025 Normal 1.003-1.035 [facility] Comment on above: Performed By: #### P INR, 98576-0, 59782-9, CBCA, 39675-7, CMP, 4548-4, 6873-4 #### [facility] ([id number]) [address] [place] [address] 29758 #### HA1C #### [facility] ([id number]) [address] [place] [address], [address] [place] [address] UROBILINOGEN ALLYN 0.2 eu/dL Normal <1.1 [facility] Comment on above: Performed By: #### P INR, 69088-2, 42104-7, CBCA, 81538-5, CMP, 4548-4, 6873-4 #### [facility] ([id number]) [address] [place] [address] 47749 #### HA1C #### [facility] ([id number]) [address] [place] [address], [address] [place] [address] BASIC METABOLIC PANLon 05-12 Anion gap [Moles/Vol] 8 mmol/L Normal 5-15 [facility] Comment on above: Performed By: #### P INR, 25741-3, 64340-4, CBCA, 58922-0, CMP, 4548-4, 6873-4 #### [facility] ([id number]) [address] [place] [address] 84124 #### HA1C #### [facility] ([id number]) [address], [address] [place] [address] Calcium [Mass/Vol] 8.9 mg/dL Normal 8.5-10.5 [facility] Comment on above: Performed By: #### P INR, 73089-4, 64177-6, CBCA, 10048-3, CMP, 4548-4, 6873-4 #### [facility] ([id number]) [address] [place] [address] 72807 #### HA1C #### [facility] ([id number]) [address], [address] [place] [address] Chloride [Moles/Vol] 102 mmol/L Normal 98-109 [facility] Comment on above: Performed By: #### P INR, 87025-1, 94591-9, CBCA, 07714-9, CMP, 4548-4, 6873-4 #### [facility] ([id number]) [address] [place] [address] 17392 #### HA1C #### [facility] ([id number]) [address], [address] [place] [address] CO2 [Moles/Vol] 26 mmol/L Normal 22-32 [facility] Comment on above: Performed By: #### P INR, 75239-8, 71654-9, CBCA, 71304-2, CMP, 4548-4, 6873-4 #### [facility] ([id number]) [address] [place] [address] 90908 #### HA1C #### [facility] ([id number]) [address], [address] [place] [address] Creatinine [Mass/Vol] 0.68 mg/dL Low 0.70-1.20 [facility] Comment on above: Result Comment: METH OD TRACEABLE TO IDMS STANDARD Performed By: #### P INR, 50309-8, 90949-0, CBCA, 01154-4, CMP, 4548-4, 6873-4 #### [facility] ([id number]) [address] [place] [address] 86636 #### HA1C #### [facility] ([id number]) [address] [facility], [address] [address] eGFR (CKD-EPI) NON-RACE DEPENDENT >90 Normal >59 [facility] Comment on above: Result Comment: Reported eGFR is based on the CKD-EPI 2020 equation that does not use a race coefficient. Performed By: #### P INR, 37975-5, 59438-0, CBCA, 11128-4, CMP, 4548-4, 6873-4 #### [facility] ([id number]) [address] [place] [address] 61069 #### HA1C #### [facility] ([id number]) [address] [facility], [address] [place] [address] Glucose [Mass/Vol] 143 mg/dL High 65-99 [facility] Comment on above: Performed By: #### P INR, 92331-1, 95445-1, CBCA, 62351-6, CMP, 4548-4, 6873-4 #### [facility] ([id number]) [address] [place] [address] 15304 #### HA1C #### [facility] ([id number]) [address] [facility], [address] [place] [address] Potassium [Moles/Vol] 3.7 mmol/L Normal 3.5-5.0 [facility] Comment on above: Performed By: #### P INR, 13779-1, 47332-0, CBCA, 51911-3, CMP, 4548-4, 6873-4 #### [facility] ([id number]) [address] [place] [address] 89891 #### HA1C #### [facility] ([id number]) [address] [facility], [address] [place] [address] Sodium [Moles/Vol] 136 mmol/L Normal 134-146 [facility] Comment on above: Performed By: #### P INR, 70180-9, 16093-6, CBCA, 85468-3, CMP, 4548-4, 6873-4 #### [facility] ([id number]) [address] [place] [address] 25580 #### HA1C #### [facility] ([id number]) [address] [facility], [address] [place] [address] Urea nitrogen [Mass/Vol] 22 mg/dL Normal 5-27 [facility] Comment on above: Performed By: #### P INR, 02378-3, 08316-1, CBCA, 22628-2, CMP, 4548-4, 6873-4 #### [facility] ([id number]) [address] [place] [address] 33386 #### HA1C #### [facility] ([id number]) [address] [facility], [address] [place] [address] CBC AND AUTO DIFFon -17-20 24 ABSOLUTE BASOPHIL 0.1 X10E9/L Normal 0.0-0.2 [facility] Comment on above: Performed By: #### P INR, 71811-1, 74484-9, CBCA, 03511-3, CMP, 4548-4, 6873-4 #### [facility] ([id number]) [address] [place] [address] 39703 #### HA1C #### [facility] ([id number]) [address], [address] [place] [address] ABSOLUTE NEUTROPHIL 2.2 X10E9/L Normal 1.5-6.6 [facility] Comment on above: Performed By: #### P INR, 84660-6, 48490-1, CBCA, 52254-3, CMP, 4548-4, 6873-4 #### [facility] ([id number]) [address] [place] [address] 17374 #### HA1C #### [facility] ([id number]) [address], [address] [place] [address] Basophils/100 WBC (Bld) 1.7 % Normal [facility] Comment on above: Performed By: #### P INR, 36898-3, 21148-4, CBCA, 90294-5, CMP, 4548-4, 6873-4 #### [facility] ([id number]) [address] [place] [address] 25323 #### HA1C #### [facility] ([id number]) [address], [address] [place] [address] Eosinophils (Bld) [#/Vol] 0.1 10*3/uL Normal 0.0-0.4 [facility] Comment on above: Performed By: #### P INR, 13121-9, 21107-7, CBCA, 73389-5, CMP, 4548-4, 6873-4 #### [facility] ([id number]) [address] [place] [address] 43018 #### HA1C #### [facility] ([id number]) [address], [address] [place] [address] Eosinophils/100 WBC (Bld) 3.2 % Normal [facility] Comment on above: Performed By: #### P INR, 49582-6, 99977-1, CBCA, 02377-0, CMP, 4548-4, 6873-4 #### [facility] ([id number]) [address] [place] [address] 36757 #### HA1C #### [facility] ([id number]) [address], [address] [place] [address] Erythrocyte distribution width (RBC) [Ratio] 15.2 % High 11.5-15.0 [facility] Comment on above: Performed By: #### P INR, 08020-5, 72154-0, CBCA, 56965-2, CMP, 4548-4, 6873-4 #### [facility] ([id number]) [address] [place] [address] #### DOROTEO1C #### [facility] ([id number]) [address], [address] [place] [address] Hematocrit (Bld) [Volume fraction] 33.1 % Low 39-49 [facility] Comment on above: Performed By: #### P INR, 77109-4, 06523-3, CBCA, 29997-6, CMP, 4548-4, 6873-4 #### [facility] ([id number]) [address] [place] [address] 73847 #### HA1C #### [facility] ([id number]) [address], [address] [place] [address] Hemoglobin (Bld) [Mass/Vol] 11.3 g/dL Low 13.0-17.0 [facility] Comment on above: Performed By: #### P INR, 37132-6, 57430-8, CBCA, 73919-5, CMP, 4548-4, 6873-4 #### [facility] ([id number]) [address] [place] [address] 77265 #### HA1C #### [facility] ([id number]) [address], [address] [place] [address] Lymphocytes (Bld) [#/Vol] 1.5 10*3/uL Normal 1.0-3.5 [facility] Comment on above: Performed By: #### P INR, 97027-9, 94388-9, CBCA, 12545-0, CMP, 4548-4, 6873-4 #### [facility] ([id number]) [address] [place] [address] 97626 #### HA1C #### [facility] ([id number]) [address], [address] [place] [address] Lymphocytes/100 WBC (Bld) 35.4 % Normal [facility] Comment on above: Performed By: #### P INR, 21114-6, 50825-4, CBCA, 72932-6, CMP, 4548-4, 6873-4 #### [facility] ([id number]) [address] [place] [address] 22921 #### HA1C #### [facility] ([id number]) [address], [address] [place] [address] MCH (RBC) [Entitic mass] 28.9 pg Normal 27-34 [facility] Comment on above: Performed By: #### P INR, 19148-9, 87643-1, CBCA, 39247-0, CMP, 4548-4, 6873-4 #### [facility] ([id number]) [address] [place] [address] #### HA1C #### [facility] ([id number]) [address], [address] [place] [address] MCHC (RBC) [Mass/Vol] 34.2 g/dL Normal 32-36 [facility] Comment on above: Performed By: #### P INR, 16411-4, 93494-9, CBCA, 99509-3, CMP, 4548-4, 6873-4 #### [facility] ([id number]) [address] [place] [address] #### HA1C #### [facility] ([id number]) [address], [address] [place] [address] MCV (RBC) [Entitic vol] 84 fL Normal 80-100 P [facility] Comment on above: Performed By: #### P INR, 40432-1, 75811-7, CBCA, 08371-6, CMP, 4548-4, 6873-4 #### [facility] ([id number]) [address] [place] [address] #### HA1C #### [facility] ([id number]) [address] [facility], [address] [place] [address] Monocytes (Bld) [#/Vol] 0.3 10*3/uL Normal 0-0.9 [facility] Comment on above: Performed By: #### P INR, 26354-8, 40369-7, CBCA, 13595-2, CMP, 4548-4, 6873-4 #### [facility] ([id number]) [address] [place] [address] 6[address] #### HA1C #### [facility] ([id number]) [address] [facility], [address] [place] [address] Monocytes/100 WBC (Bld) 7.8 % Normal P [facility] Comment on above: Performed By: #### P INR, 80085-7, 87350-3, CBCA, 60788-5, CMP, 4548-4, 6873-4 #### [facility] ([id number]) [address] [place] [address] 31869 #### HA1C #### [facility] ([id number]) [address] [facility], [address] [place] [address] Neutrophils/100 WBC (Bld) 51.9 % Normal [facility] Comment on above: Performed By: #### P INR, 58083-6, 90026-2, CBCA, 70605-6, CMP, 4548-4, 6873-4 #### [facility] ([id number]) [address] [place] [address] 353[address] #### HA1C #### [facility] ([id number]) [address] [facility], [address] [place] [address] Platelet mean volume (Bld) [Entitic vol] 7.1 fL Normal 7-12 [facility] Comment on above: Performed By: #### P INR, 39022-7, 56387-3, CBCA, 53721-4, CMP, 4548-4, 6873-4 #### [facility] ([id number]) [address] [place] [address] 316[address] #### HA1C #### [facility] ([id number]) [address] [place] [address], [address] [place] [address] Platelets (Bld) [#/Vol] 310 10*3/uL Normal 150-450 [facility] Comment on above: Performed By: #### P INR, 46760-5, 14140-7, CBCA, 32787-5, CMP, 4548-4, 6873-4 #### [facility] ([id number]) [address] [place] [address] 38468 #### HA1C #### [facility] ([id number]) [address] [place] [address], [address] [place] [address] RBC COUNT 3.93 X10E12/L Low 4.10-5.70 [facility] Comment on above: Performed By: #### P INR, 57255-9, 65229-0, CBCA, 53897-6, CMP, 4548-4, 6873-4 #### [facility] ([id number]) [address] [place] [address] #### HA1C #### [facility] ([id number]) [address], [address] [place] [address] WBC (Bld) [#/Vol] 4.3 10*3/uL Normal 4.0-11.0 [facility] Comment on above: Performed By: #### P INR, 29770-8, 74298-2, CBCA, 83456-6, CMP, 4548-4, 6873-4 #### [facility] ([id number]) [address] [place] [address] 32470 #### HA1C #### [facility] ([id number]) [address], [address] [place] [address] [address] CONT[address] CT BRAIN WO [...] Yuan MD on 05/12/2024 3:05 AM Normal [facility] PROTIME AND INRon 05-12-2024 INR Coag (PPP) [Relative time] 1.2 {INR} High 0.8-1.1 [facility] Comment on above: Performed By: #### P INR, 95138-0, 88229-0, CBCA, 25073-9, CMP, 4548-4, 6873-4 #### [facility] ([id number]) [address] [place] [address] 75[address] #### HA1C #### [facility] ([id number]) [address] [facility], [address] [place] [address] PT Coag (PPP) [Time] 14.0 s High 9.8-13.2 [facility] Comment on above: Result Comment: NEW REFERENCE RANGE Performed By: #### P INR, 27972-7, 25017-7, CBCA, 51951-3, CMP, 4548-4, 6873-4 #### [facility] ([id number]) [address] [place] [address] 03431 #### HA1C #### [facility] ([id number]) [address] [facility], [address] [place] [address] aPTT Coag (PPP) [Time]on aPTT Coag (Bld) [Time] 30 s Normal 26-37 [facility] Comment on above: Result Comment: NEW REFERENCE RANGE Performed By: #### P INR, 62469-7, 21748-0, CBCA, 56235-8, CMP, 4548-4, 6873-4 #### [facility] ([id number]) [address] [place] [address] 10723 #### HA1C #### [facility] ([id number]) [address] [facility], [facility] [address] [place] [address] CBC AND AUTO DIFFon 04-21-20 24 ABSOLUTE BASOPHIL 0.0 X10E9/L Normal 0.0-0.2 [facility] Comment on above: Performed By: #### C BCA, CMP ####[facility] ([id number])[address], [address], [place] [address] ABSOLUTE NEUTROPHIL 2.8 X10E9/L Normal 1.5-6.[address] [facility] Comment on above: Performed By: #### C BCA, CMP ####[facility] ([id number])[address], [address], [place] [address] Basophils/100 WBC (Bld) 0.7 % Normal P [facility] Comment on above: Performed By: #### C BCA, CMP ####[facility] ([id number])[address], [address] [place] [address] Eosinophils (Bld) [#/Vol] 0.2 10*3/uL Normal 0.0-0.4 [facility] Comment on above: Performed By: #### C BCA, CMP ####[facility] ([id number])[address] [address], [place] [address] Eosinophils/100 WBC (Bld) 3.3 % Normal [facility] Comment on above: Performed By: #### C ZACHARY, CMP ####[facility] ([id number])[address], [place] [address] Erythrocyte distribution width (RBC) [Ratio] 16.2 % High 11.5-15.0 [facility] Comment on above: Performed By: #### C BCA, CMP ####[facility] ([id number])[address] [address], [place] [address] Hematocrit (Bld) [Volume fraction] 28.7 % Low 39-49 [facility] Comment on above: Performed By: #### C BCA, CMP ####[facility] ([id number])[address] [address], [place] [address] Hemoglobin (Bld) [Mass/Vol] 10.2 g/dL Low 13.0-17.0 [facility] Comment on above: Performed By: #### C BCA, CMP ####[facility] ([id number])[address] [place] [address] Lymphocytes (Bld) [#/Vol] 1.3 10*3/uL Normal 1.0-3.5 [facility] Comment on above: Performed By: #### C BCA, CMP ####[facility] ([id number])[address] [place] [address] Lymphocytes/100 WBC (Bld) 28.0 % Normal [facility] Comment on above: Performed By: #### C BCA, CMP ####[facility] ([id number])[address], [address] [place] [address] MCH (RBC) [Entitic mass] 31.7 pg Normal 27-34 [facility] Comment on above: Performed By: #### C BCA, CMP ####[facility] ([id number])[address] [address] [place] [address] MCHC (RBC) [Mass/Vol] 35.6 g/dL Normal 32-36 [facility] Comment on above: Performed By: #### C BCA, CMP ####[facility] ([id number])[address] [address] [place] [address] MCV (RBC) [Entitic vol] 89 fL Normal 80-100 P [facility] Comment on above: Performed By: #### C BCA, CMP ####[facility] ([id number])[address] [address] [place] [address] Monocytes (Bld) [#/Vol] 0.5 10*3/uL Normal 0-0.9 [facility] Comment on above: Performed By: #### C BCA, CMP ####[facility] ([id number])[address], [address] [place] [address] Monocytes/100 WBC (Bld) 9.6 % Normal [facility] Comment on above: Performed By: #### C BCA, CMP ####[facility] ([id number])[address], [address], [place] [address] Neutrophils/100 WBC (Bld) 58.4 % Normal [facility] Comment on above: Performed By: #### C BCA, CMP ####[facility] ([id number])[address], [address] [place] [address] Platelet mean volume (Bld) [Entitic vol] 7.3 fL Normal 7-12 [facility] Comment on above: Performed By: #### C BCA, CMP ####[facility] ([id number])[address] [address] Platelets (Bld) [#/Vol] 249 10*3/uL Normal 150-450 [facility] Comment on above: Performed By: #### C BCA, CMP ####[facility] ([id number])[address] [address], [place] [address] RBC COUNT 3.23 X10E12/L Low 4.10-5.70 [facility] Comment on above: Performed By: #### C BCA, CMP ####[facility] ([id number])[address] [address] WBC (Bld) [#/Vol] 4.8 10*3/uL Normal 4.0-11.0 [facility] Comment on above: Performed By: #### C BCA, CMP ####[facility] ([id number])[address], [address] [place] [address] COMPREHENSIVE METABOLIC PANE [facility] 04-21-2024 Albumin [Mass/Vol] 3.6 g/dL Normal 3.2-5.3 [facility] Comment on above: Performed By: #### C BCA, CMP ####[facility] ([id number])[address], [address], [place] [address] ALP [Catalytic activity/Vol] 78 U/L Normal 39-130 [facility] Comment on above: Performed By: #### C BCA, CMP ####[facility] ([id number])[address], [address], [place] [address] ALT [Catalytic activity/Vol] 27 U/L Normal 0-40 [facility] Comment on above: Performed By: #### C BCA, CMP ####[facility] ([id number])[address], [address], [place] [address] Anion gap [Moles/Vol] 9 mmol/L Normal 5-15 [facility] Comment on above: Performed By: #### C BCA, CMP ####[facility] ([id number])[address], [address], [place] [address] AST [Catalytic activity/Vol] 13 U/L Normal 0-41 [facility] Comment on above: Performed By: #### C BCA, CMP ####[facility] ([id number])[address], [address], [place] [address] Bilirubin [Mass/Vol] 0.4 mg/dL Normal 0.3-1.[address] [facility] Comment on above: Performed By: #### C BCA, CMP ####[facility] ([id number])[address], [address], [place] [address] Calcium [Mass/Vol] 8.8 mg/dL Normal 8.5-10.5 [facility] Comment on above: Performed By: #### C BCA, CMP ####[facility] ([id number])[address], [address], [place] [address] Chloride [Moles/Vol] 100 mmol/L Normal 98-[address] [facility] Comment on above: Performed By: #### C BCA, CMP ####[facility] ([id number])[address] [address], [place] [address] CO2 [Moles/Vol] 28 mmol/L Normal 22-32 [facility] Comment on above: Performed By: #### C BCA, CMP ####[facility] ([id number])[address] [address], [place] [address] Creatinine [Mass/Vol] 0.70 mg/dL Normal 0.60-1.30 [facility] Comment on above: Result Comment: METH OD TRACEABLE TO IDMS STANDARD Performed By: #### C BCA, CMP ####[facility] ([id number])[address] [address] eGFR (CKD-EPI) NON-RACE DEPENDENT >90 Normal >59 [facility] Comment on above: Result Comment: Reported eGFR is based on the CKD-EPI 2020 equation that does not use a race coefficient. Performed By: #### C BCA, CMP ####[facility] ([id number])[address] [address], [place] [address] Glucose [Mass/Vol] 159 mg/dL High 65-99 [facility] Comment on above: Performed By: #### C BCA, CMP ####[facility] ([id number])[address] [address] [place] [address] Potassium [Moles/Vol] 4.2 mmol/L Normal 3.5-5.0 [facility] Comment on above: Performed By: #### C BCA, CMP ####[facility] ([id number])[address] [address] Protein [Mass/Vol] 5.6 g/dL Low 6.0-8.0 [facility] Comment on above: Performed By: #### C BCA, CMP ####[facility] ([id number])[address] [place] [address] Sodium [Moles/Vol] 137 mmol/L Normal 134-146 [facility] Comment on above: Performed By: #### C ZACHARY, CMP ####[facility] ([id number])[address], [address], [place] [address] Urea nitrogen [Mass/Vol] 17 mg/dL Normal 5-27 [facility] Comment on above: Performed By: #### C ZACHARY, CMP ####[facility] ([id number])[address], [place] [address] Glucose Glucometer (BldC) [M ass/Vol]on 04-21-2024 Glucose [Mass/Vol] 234 mg/dL High 65-99 [facility] Glucose [Mass/Vol] 143 mg/dL High 65-99 [facility] CBC AND AUTO DIFFon 04-20-20 ABSOLUTE BASOPHIL 0.1 X10E9/L Normal 0.0-0.2 [facility] Comment on above: Performed By: #### C ZACHARY, NAHOMY, 95545-7 #### [facility] ([id number]) [address], [address] [place] [address] ABSOLUTE NEUTROPHIL 2.9 X10E9/L Normal 1.5-6.[address] [facility] Comment on above: Performed By: #### Thais SHARMA CMP, 83445-2 #### [facility] ([id number]) [address], [address] [place] [address] Basophils/100 WBC (Bld) 1.1 % Normal P [facility] Comment on above: Performed By: #### Thais SHARMA CMP, 53671-6 #### [facility] ([id number]) [address], [address] [place] [address] Eosinophils (Bld) [#/Vol] 0.1 10*3/uL Normal 0.0-0.4 [facility] Comment on above: Performed By: #### C ZACHARY, CMP, 05859-8 #### [facility] ([id number]) [address], [address] [place] [address] Eosinophils/100 WBC (Bld) 2.7 % Normal [facility] Comment on above: Performed By: #### C ZACHARY, CMP, 47043-4 #### [facility] ([id number]) [address], [address] [place] [address] Erythrocyte distribution width (RBC) [Ratio] 15.8 % High 11.5-15.0 [facility] Comment on above: Performed By: #### C ZACHARY, CMP, 84536-0 #### [facility] ([id number]) [address], [address] [place] [address] Hematocrit (Bld) [Volume fraction] 30.3 % Low 39-49 [facility] Comment on above: Performed By: #### Thais SHARMA, CMP, 84903-8 #### [facility] ([id number]) [address] [place] [address] Hemoglobin (Bld) [Mass/Vol] 10.5 g/dL Low 13.0-17.0 [facility] Comment on above: Performed By: #### Thais SHARMA, CMP, 43523-4 #### [facility] ([id number]) [address] [place] [address] Lymphocytes (Bld) [#/Vol] 1.2 10*3/uL Normal 1.0-3.5 [facility] Comment on above: Performed By: #### C ZACHARY, CMP, 25552-2 #### [facility] ([id number]) [address], [address] [place] [address] Lymphocytes/100 WBC (Bld) 25.4 % Normal [facility] Comment on above: Performed By: #### C BCA, CMP, 42139-2 #### [facility] ([id number]) [address], [address] [place] [address] MCH (RBC) [Entitic mass] 30.5 pg Normal 27-34 [facility] Comment on above: Performed By: #### C BCA, CMP, 63789-8 #### [facility] ([id number]) [address], [address] [place] [address] MCHC (RBC) [Mass/Vol] 34.5 g/dL Normal 32-36 [facility] Comment on above: Performed By: #### C BCA, CMP, 45584-4 #### [facility] ([id number]) [address] [place] [address] MCV (RBC) [Entitic vol] 88 fL Normal 80-100 P [facility] Comment on above: Performed By: #### Thais BCA, CMP, 48707-3 #### [facility] ([id number]) [address] [place] [address] Monocytes (Bld) [#/Vol] 0.4 10*3/uL Normal 0-0.9 [facility] Comment on above: Performed By: #### C BCA, CMP, 89909-1 #### [facility] ([id number]) [address] [place] [address] Monocytes/100 WBC (Bld) 9.3 % Normal P [facility] Comment on above: Performed By: #### C BCA, CMP, 35281-3 #### [facility] ([id number]) [address] [place] [address] Neutrophils/100 WBC (Bld) 61.5 % Normal [facility] Comment on above: Performed By: #### C BCA, CMP, 01786-6 #### [facility] ([id number]) [address], [address] [place] [address] Platelet mean volume (Bld) [Entitic vol] 7.1 fL Normal 7-12 [facility] Comment on above: Performed By: #### C BCA, CMP, 59826-3 #### [facility] ([id number]) [address], [address] [place] [address] Platelets (Bld) [#/Vol] 291 10*3/uL Normal 150-450 [facility] Comment on above: Performed By: #### C BCA, CMP, 68984-2 #### [facility] ([id number]) [address], [facility] [address] [place] [address] RBC COUNT 3.43 X10E12/L Low 4.10-5.70 [facility] Comment on above: Performed By: #### C BCA, CMP, 66765-7 #### [facility] ([id number]) [address] [place] [address] WBC (Bld) [#/Vol] 4.7 10*3/uL Normal 4.0-11.0 [facility] Comment on above: Performed By: #### C BCA, CMP, 56728-0 #### [facility] ([id number]) [address] [place] [address] COMPREHENSIVE METABOLIC PANE [place] 04-20-2024 Albumin [Mass/Vol] 3.9 g/dL Normal 3.2-5.3 [facility] Comment on above: Performed By: #### C BCA, CMP, 56232-1 #### [facility] ([id number]) [address], [address] [place] [address] ALP [Catalytic activity/Vol] 94 U/L Normal 39-130 [facility] Comment on above: Performed By: #### C BCA, CMP, 06882-2 #### [facility] ([id number]) [address], [address] [place] [address] ALT [Catalytic activity/Vol] 41 U/L High 0-40 [facility] Comment on above: Performed By: #### C BCA, CMP, 12385-3 #### [facility] ([id number]) [address], [address] [place] [address] Anion gap [Moles/Vol] 9 mmol/L Normal 5-15 [facility] Comment on above: Performed By: #### C BCA, CMP, 81373-9 #### [facility] ([id number]) [address] [place] [address] AST [Catalytic activity/Vol] 22 U/L Normal 0-41 [facility] Comment on above: Performed By: #### C BCA, CMP, 63928-4 #### [facility] ([id number]) [address] [place] [address] Bilirubin [Mass/Vol] 0.6 mg/dL Normal 0.3-1.[address] [facility] Comment on above: Performed By: #### C BCA, CMP, 00279-0 #### [facility] ([id number]) [address] [place] [address] Calcium [Mass/Vol] 9.1 mg/dL Normal 8.5-10.5 [facility] Comment on above: Performed By: #### C BCA, CMP, 38116-2 #### [facility] ([id number]) [address] [place] [address] Chloride [Moles/Vol] 98 mmol/L Normal 98-[address] [facility] Comment on above: Performed By: #### C BCA, CMP, 88134-1 #### [facility] ([id number]) [address] [place] [address] CO2 [Moles/Vol] 30 mmol/L Normal 22-32 [facility] Comment on above: Performed By: #### C BCA, CMP, 26657-5 #### [facility] ([id number]) [address] [address] [place] [address] Creatinine [Mass/Vol] 0.69 mg/dL Normal 0.60-1.30 [facility] Comment on above: Result Comment: METH OD TRACEABLE TO IDMS STANDARD Performed By: #### C BCA, CMP, 47315-3 #### [facility] ([id number]) [address], [facility] [address] [place] [address] eGFR (CKD-EPI) NON-RACE DEPENDENT >90 Normal >59 [facility] Comment on above: Result Comment: Reported eGFR is based on the CKD-EPI 2020 equation that does not use a race coefficient. Performed By: #### C BCA, CMP, 26699-6 #### [facility] ([id number]) [address] [address] [place] [address] Glucose [Mass/Vol] 204 mg/dL High 65-99 [facility] Comment on above: Performed By: #### C BCA, CMP, 37302-6 #### [facility] ([id number]) [address] [address] [place] [address] Potassium [Moles/Vol] 4.3 mmol/L Normal 3.5-5.0 [facility] Comment on above: Performed By: #### C BCA, CMP, 37393-2 #### [facility] ([id number]) [address] [address] [place] [address] Protein [Mass/Vol] 6.2 g/dL Normal 6.0-8.0 [facility] Comment on above: Performed By: #### C BCA, CMP, 02046-5 #### [facility] ([id number]) [address] [address] [place] [address] Sodium [Moles/Vol] 137 mmol/L Normal 134-146 [facility] Comment on above: Performed By: #### C BCA, CMP, 61017-8 #### [facility] ([id number]) [address] [place] [address] Urea nitrogen [Mass/Vol] 11 mg/dL Normal 5-27 [facility] Comment on above: Performed By: #### C ZACHARY, CMP, 25076-4 #### [facility] ([id number]) [address] [place] [address] Glucose Glucometer (BldC) [M ass/Vol]on 04-20-2024 Glucose [Mass/Vol] 287 mg/dL High 65-99 [facility] Glucose [Mass/Vol] 263 mg/dL High 65-99 [facility] Glucose [Mass/Vol] 231 mg/dL High 65-99 [facility] Glucose [Mass/Vol] 176 mg/dL High 65-99 [facility] CBC AND AUTO DIFFon 04-19-20 ABSOLUTE BASOPHIL 0.0 X10E9/L Normal 0.0-0.2 [facility] Comment on above: Performed By: #### C ZACHARY, CMP, 54035-2 #### [facility] ([id number]) [address] [address] [place] [address] ABSOLUTE NEUTROPHIL 2.1 X10E9/L Normal 1.5-6.[address] [facility] Comment on above: Performed By: #### C BCA, CMP, 91668-2 #### [facility] ([id number]) [address], [address] [place] [address] Basophils/100 WBC (Bld) 1.2 % Normal P [facility] Comment on above: Performed By: #### C BCA, CMP, 15688-0 #### [facility] ([id number]) [address], [address] [place] [address] Eosinophils (Bld) [#/Vol] 0.1 10*3/uL Normal 0.0-0.4 [facility] Comment on above: Performed By: #### C BCA, CMP, 85321-7 #### [facility] ([id number]) [address], [address] [place] [address] Eosinophils/100 WBC (Bld) 3.6 % Normal [facility] Comment on above: Performed By: #### C BCA, CMP, 60156-9 #### [facility] ([id number]) [address], [address] [place] [address] Erythrocyte distribution width (RBC) [Ratio] 15.5 % High 11.5-15.0 [facility] Comment on above: Performed By: #### C ZACHARY, CMP, 12845-9 #### [facility] ([id number]) [address], [address] [place] [address] Hematocrit (Bld) [Volume fraction] 29.4 % Low 39-49 [facility] Comment on above: Performed By: #### Thais BCA, CMP, 85526-9 #### [facility] ([id number]) [address], [address] [place] [address] Hemoglobin (Bld) [Mass/Vol] 10.1 g/dL Low 13.0-17.0 [facility] Comment on above: Performed By: #### Thais BCA, CMP, 08828-1 #### [facility] ([id number]) [address], [address] [place] [address] Lymphocytes (Bld) [#/Vol] 1.0 10*3/uL Normal 1.0-3.5 [facility] Comment on above: Performed By: #### C BCA, CMP, 51345-4 #### [facility] ([id number]) [address], [address] [place] [address] Lymphocytes/100 WBC (Bld) 28.5 % Normal [facility] Comment on above: Performed By: #### Thais BCA, CMP, 26132-9 #### [facility] ([id number]) [address], [address] [place] [address] MCH (RBC) [Entitic mass] 30.8 pg Normal 27-34 [facility] Comment on above: Performed By: #### C BCA, CMP, 79791-1 #### [facility] ([id number]) [address], [address] [place] [address] MCHC (RBC) [Mass/Vol] 34.4 g/dL Normal 32-36 [facility] Comment on above: Performed By: #### C BCA, CMP, 31113-5 #### [facility] ([id number]) [address] [place] [address] MCV (RBC) [Entitic vol] 89 fL Normal 80-100 P [facility] Comment on above: Performed By: #### Thais BCA, CMP, 65429-3 #### [facility] ([id number]) [address] [place] [address] Monocytes (Bld) [#/Vol] 0.3 10*3/uL Normal 0-0.9 [facility] Comment on above: Performed By: #### C BCA, CMP, 39810-4 #### [facility] ([id number]) [address], [address] [place] [address] Monocytes/100 WBC (Bld) 8.3 % Normal P [facility] Comment on above: Performed By: #### C BCA, CMP, 06825-4 #### [facility] ([id number]) [address], [address] [place] [address] Neutrophils/100 WBC (Bld) 58.4 % Normal [facility] Comment on above: Performed By: #### C BCA, CMP, 31905-3 #### [facility] ([id number]) [address], [address] [place] [address] Platelet mean volume (Bld) [Entitic vol] 7.1 fL Normal 7-12 [facility] Comment on above: Performed By: #### C BCA, CMP, 84938-7 #### [facility] ([id number]) [address], [facility] [address] [place] [address] Platelets (Bld) [#/Vol] 264 10*3/uL Normal 150-450 [facility] Comment on above: Performed By: #### C BCA, CMP, 54074-8 #### [facility] ([id number]) [address], [facility] [address] [place] [address] RBC COUNT 3.29 X10E12/L Low 4.10-5.70 [facility] Comment on above: Performed By: #### C BCA, CMP, 84547-7 #### [facility] ([id number]) [address] [address] WBC (Bld) [#/Vol] 3.6 10*3/uL Low 4.0-11.0 [facility] Comment on above: Performed By: #### C BCA, CMP, 52265-6 #### [facility] ([id number]) [address], [facility] [address] [place] [address] COMPREHENSIVE METABOLIC PANE Delonte 04-19-2024 Albumin [Mass/Vol] 3.8 g/dL Normal 3.2-5.3 [facility] Comment on above: Performed By: #### C BCA, CMP, 90354-9 #### [facility] ([id number]) [address], [address] [place] [address] ALP [Catalytic activity/Vol] 91 U/L Normal 39-130 [facility] Comment on above: Performed By: #### C BCA, CMP, 54149-1 #### [facility] ([id number]) [address], [facility] [address] [place] [address] ALT [Catalytic activity/Vol] 40 U/L Normal 0-40 [facility] Comment on above: Performed By: #### C ZACHARY, CMP, 72221-4 #### [facility] ([id number]) [address], [address] [place] [address] Anion gap [Moles/Vol] 10 mmol/L Normal 5-15 [facility] Comment on above: Performed By: #### C ZACHARY, CMP, 11310-1 #### [facility] ([id number]) [address], [address] [place] [address] AST [Catalytic activity/Vol] 24 U/L Normal 0-41 [facility] Comment on above: Performed By: #### C BCA, CMP, 37642-4 #### [facility] ([id number]) [address], [address] [place] [address] Bilirubin [Mass/Vol] 0.7 mg/dL Normal 0.3-1.[address] [facility] Comment on above: Performed By: #### C BCA, CMP, 97140-4 #### [facility] ([id number]) [address] [place] [address] Calcium [Mass/Vol] 9.0 mg/dL Normal 8.5-10.5 [facility] Comment on above: Performed By: #### C BCA, CMP, 76189-9 #### [facility] ([id number]) [address], [address] [place] [address] Chloride [Moles/Vol] 100 mmol/L Normal 98-[address] [facility] Comment on above: Performed By: #### C BCA, CMP, 29691-9 #### [facility] ([id number]) [address], [address] [place] [address] CO2 [Moles/Vol] 27 mmol/L Normal 22-32 [facility] Comment on above: Performed By: #### C BCA, CMP, 87558-0 #### [facility] ([id number]) [address] [address] [place] [address] Creatinine [Mass/Vol] 0.62 mg/dL Normal 0.60-1.30 [facility] Comment on above: Result Comment: METH OD TRACEABLE TO IDMS STANDARD Performed By: #### C ZACHARY, CMP, 97116-8 #### [facility] ([id number]) [address] [place] [address] eGFR (CKD-EPI) NON-RACE DEPENDENT >90 Normal >59 [facility] Comment on above: Result Comment: Reported eGFR is based on the CKD-EPI 2020 equation that does not use a race coefficient. Performed By: #### C ZACHARY, CMP, 88692-4 #### [facility] ([id number]) [address], [address] [place] [address] Glucose [Mass/Vol] 124 mg/dL High 65-99 [facility] Comment on above: Performed By: #### C ZACHARY, CMP, 95659-2 #### [facility] ([id number]) [address] [address] [place] [address] Potassium [Moles/Vol] 3.8 mmol/L Normal 3.5-5.0 [facility] Comment on above: Performed By: #### C BCA, CMP, 47934-9 #### [facility] ([id number]) [address] [address] [place] [address] Protein [Mass/Vol] 6.0 g/dL Normal 6.0-8.0 [facility] Comment on above: Performed By: #### C BCA, CMP, 31550-6 #### [facility] ([id number]) [address] [address] [place] [address] Sodium [Moles/Vol] 137 mmol/L Normal 134-146 [facility] Comment on above: Performed By: #### Thais SHARMA CMP, 48371-4 #### [facility] ([id number]) [address], [address] [place] [address] Urea nitrogen [Mass/Vol] 7 mg/dL Normal 5-27 [facility] Comment on above: Performed By: #### Thais SHARMA, CMP, 10537-6 #### [facility] ([id number]) [address], [address] [place] [address] Folate [Mass/Vol]on 04-19-20 FOLIC ACID 8.1 ng/mL Normal >5.8 [facility] Comment on above: Result Comment: NEW REFERENCE RANGE Performed By: #### Thais SHARMA CMP, 70740-1 #### [facility] ([id number]) [address], [address] [place] [address] Glucose Glucometer (BldC) [M ass/Vol]on 04-19-2024 Glucose [Mass/Vol] 142 mg/dL High 65-99 [facility] Glucose [Mass/Vol] 129 mg/dL High 65-99 [facility] Glucose [Mass/Vol] 119 mg/dL High 65-99 [facility] Glucose [Mass/Vol] 132 mg/dL High 65-99 [facility] HGB AND HCTon 04-19-2024 Hematocrit (Bld) [Volume fraction] 32.0 % Low 39-49 [facility] Comment on above: Performed By: #### Thais SHARMA, CMP, 12345-4 #### [facility] ([id number]) [address] [place] [address] Hemoglobin (Bld) [Mass/Vol] 11.1 g/dL Low 13.0-17.0 [facility] Comment on above: Performed By: #### Thais SHARMA, CMP, 34052-7 #### [facility] ([id number]) [address] [place] [address] Surgical Pathologyon 024 Surgical Pathology Normal [facility] Comment on above: Result Comment: [facility] [address] [place] [address] Surgical Pathology Consultation Patient Name:VASHTI RIVERA:1955 (Age: 68)Gender:MTaken:4Reported:04/22/2024hysician(s):Joshua Craft MD ( )Copy To: Rec. #:[id number]: #[id number] Final Pathologic Diagnosis 1. Transverse colon polyp: Tubular adenoma. 2. Transverse colon polyp #2; EMR: Tubular adenoma fragments. Report Electronically Signed Out st/04/22/2024Bee Ontiveros MD Interpretation performed at [facility] [place], [address] [place], [address], License number: [id number]. Clinical History Iron deficiency anemia, unspecified iron deficiency anemia type. Gross Description 1. Received in formalin labeled BRYSON, transverse colon polyp are eight pale black feathery soft tissue bits admixed with friable vegetative material, 0.1-0.6 cm. The specimen is filtered and entirely submitted in a single cassette. (1, ns, [id number],m8) DM. 2. Received in formalin labeled BRYSON, transverse colon polyp #2 is a pale-black polyp, 1.1 x 0.8 x 0.5 cm. The resection margin is inked black. The specimen is serially sectioned and entirely submitted in cassette A. Also received in the container are eight pale-black feathery soft tissue fragments, 0.1-0.6 cm. These are submitted in cassette B. (2, ns, [id number],m8) DM. dm/04/20/2024NSK Specimen(s) Received 1: Transverse colon polyp 2: Transverse colon polyp #2; EMR Fee Codes(s): 1; 77514 2; 09568 THYROID PROFILEon 04-19-2024 Free T4 [Mass/Vol] 1.13 ng/dL Normal 0.61-1.60 [facility] Comment on above: Performed By: #### C NAHOMY SHARMA, 39100-3 #### [facility] ([id number]) [address] [facility] [place] [address] TSH 5.50 uIU/mL High 0.49-4.67 [facility] Comment on above: Performed By: #### C BCA, CMP, 42722-3 #### [facility] ([id number]) [address] [facility], [address] [place] [address] Thiamine (Bld) [Mass/Vol]on 04-19-2024 THIAMIN VITAMIN B1 See Below Normal [facility] Comment on above: Result Comment: NOTE TEST [...] developed and its performance characteristics determined by [facility]'s Yudelka Ollie [facility] Pathology and Laboratory Medicine [place] [facility] It has not been cleared or approved by the FDA. -[facility] is regulated under CLIA as qualified to perform high-complexity testing. This test is used for clinical purposes. It should not be regarded as investigational or for research. Test Performed By: [facility] [employer] [address] [place] [address] [employer]er [employer]: Bijan Murphy III, M.D. CLIA #[id number] Performed By: #### C ZACHARY, NAHOMY, 32183-2 #### [facility] ([id number]) [address] [facility] [place] [address] VITAMIN B12on 04-19-2024 Cobalamin (Vitamin B12) [Mass/Vol] pg/mL High 180-914 [facility] Comment on above: Performed By: #### C BCA, CMP, 33341-6 #### [facility] ([id number]) [address] [place] [address] CBC AND AUTO DIFFon 04-18-20 ABSOLUTE BASOPHIL 0.0 X10E9/L Normal 0.0-0.2 [facility] Comment on above: Performed By: #### C BCA, CMP, 44114-6 #### [facility] ([id number]) [address], [address] [place] [address] ABSOLUTE NEUTROPHIL 2.5 X10E9/L Normal 1.5-6.[address] [facility] Comment on above: Performed By: #### C BCA, CMP, 52615-5 #### [facility] ([id number]) [address] [place] [address] Basophils/100 WBC (Bld) 0.9 % Normal [facility] Comment on above: Performed By: #### C BCA, CMP, 08138-1 #### [facility] ([id number]) [address] [place] [address] Eosinophils (Bld) [#/Vol] 0.1 10*3/uL Normal 0.0-0.4 [facility] Comment on above: Performed By: #### C BCA, CMP, 36708-9 #### [facility] ([id number]) [address] [place] [address] Eosinophils/100 WBC (Bld) 2.4 % Normal [facility] Comment on above: Performed By: #### C BCA, CMP, 86528-3 #### [facility] ([id number]) [address] [place] [address] Erythrocyte distribution width (RBC) [Ratio] 15.9 % High 11.5-15.0 [facility] Comment on above: Performed By: #### Thais SHARMA CMP, 25199-7 #### [facility] ([id number]) [address], [address] [place] [address] Hematocrit (Bld) [Volume fraction] 27.5 % Low 39-49 [facility] Comment on above: Performed By: #### Thais SHARMA CMP, 09540-2 #### [facility] ([id number]) [address], [address] [place] [address] Hemoglobin (Bld) [Mass/Vol] 9.6 g/dL Low 13.0-17.0 [facility] Comment on above: Performed By: #### Thais SHARMA CMP, 46508-8 #### [facility] ([id number]) [address], [address] [place] [address] Lymphocytes (Bld) [#/Vol] 0.8 10*3/uL Low 1.0-3.5 [facility] Comment on above: Performed By: #### Thais SHARMA CMP, 27003-3 #### [facility] ([id number]) [address], [address] [place] [address] Lymphocytes/100 WBC (Bld) 22.0 % Normal [facility] Comment on above: Performed By: #### Thais SHARMA CMP, 00966-9 #### [facility] ([id number]) [address], [address] [place] [address] MCH (RBC) [Entitic mass] 31.2 pg Normal 27-34 [facility] Comment on above: Performed By: #### Thais SHARMA CMP, 66339-4 #### [facility] ([id number]) [address] [place] [address] MCHC (RBC) [Mass/Vol] 34.8 g/dL Normal 32-36 [facility] Comment on above: Performed By: #### C BCA, CMP, 23634-1 #### [facility] ([id number]) [address], [address] [place] [address] MCV (RBC) [Entitic vol] 90 fL Normal 80-100 P [facility] Comment on above: Performed By: #### C BCA, CMP, 19601-3 #### [facility] ([id number]) [address] [place] [address] Monocytes (Bld) [#/Vol] 0.2 10*3/uL Normal 0-0.9 [facility] Comment on above: Performed By: #### C BCA, CMP, 33147-5 #### [facility] ([id number]) [address] [place] [address] Monocytes/100 WBC (Bld) 6.4 % Normal P [facility] Comment on above: Performed By: #### Thais BCA, CMP, 25527-9 #### [facility] ([id number]) [address] [place] [address] Neutrophils/100 WBC (Bld) 68.3 % Normal [facility] Comment on above: Performed By: #### C BCA, CMP, 16687-9 #### [facility] ([id number]) [address] [place] [address] Platelet mean volume (Bld) [Entitic vol] 6.9 fL Low 7-12 [facility] Comment on above: Performed By: #### C BCA, CMP, 84474-5 #### [facility] ([id number]) [address], [address] [place] [address] Platelets (Bld) [#/Vol] 251 10*3/uL Normal 150-450 [facility] Comment on above: Performed By: #### C BCA, CMP, 89488-1 #### [facility] ([id number]) [address], [address] [place] [address] RBC COUNT 3.07 X10E12/L Low 4.10-5.70 [facility] Comment on above: Performed By: #### C BCA, CMP, 46855-9 #### [facility] ([id number]) [address], [address] [place] [address] WBC (Bld) [#/Vol] 3.6 10*3/uL Low 4.0-11.0 [facility] Comment on above: Performed By: #### C BCA, CMP, 12278-0 #### [facility] ([id number]) [address], [address] [place] [address] COMPREHENSIVE METABOLIC PANE Delonte 04-18-2024 Albumin [Mass/Vol] 3.6 g/dL Normal 3.2-5.3 [facility] Comment on above: Performed By: #### C BCA, CMP, 04816-1 #### [facility] ([id number]) [address], [address] [place] [address] ALP [Catalytic activity/Vol] 85 U/L Normal 39-130 [facility] Comment on above: Performed By: #### C BCA, CMP, 09292-6 #### [facility] ([id number]) [address] [place] [address] ALT [Catalytic activity/Vol] 41 U/L High 0-40 [facility] Comment on above: Performed By: #### C BCA, CMP, 14941-9 #### [facility] ([id number]) [address] [place] [address] Anion gap [Moles/Vol] 11 mmol/L Normal 5-15 [facility] Comment on above: Performed By: #### C BCA, CMP, 04555-2 #### [facility] ([id number]) [address] [place] [address] AST [Catalytic activity/Vol] 26 U/L Normal 0-41 [facility] Comment on above: Performed By: #### C BCA, CMP, 95753-2 #### [facility] ([id number]) [address] [place] [address] Bilirubin [Mass/Vol] 0.7 mg/dL Normal 0.3-1.[address] [facility] Comment on above: Performed By: #### C BCA, CMP, 13434-9 #### [facility] ([id number]) [address] [place] [address] Calcium [Mass/Vol] 8.6 mg/dL Normal 8.5-10.5 [facility] Comment on above: Performed By: #### C BCA, CMP, 72862-9 #### [facility] ([id number]) [address] [place] [address] Chloride [Moles/Vol] 100 mmol/L Normal 98-[address] [facility] Comment on above: Performed By: #### C BCA, CMP, 12711-7 #### [facility] ([id number]) [address] [place] [address] CO2 [Moles/Vol] 25 mmol/L Normal 22-32 [facility] Comment on above: Performed By: #### C BCA, CMP, 35210-7 #### [facility] ([id number]) [address] [place] [address] Creatinine [Mass/Vol] 0.59 mg/dL Low 0.60-1.30 [facility] Comment on above: Result Comment: METH OD TRACEABLE TO IDMS STANDARD Performed By: #### C BCA, CMP, 40202-7 #### [facility] ([id number]) [address] [place] [address] eGFR (CKD-EPI) NON-RACE DEPENDENT >90 Normal >59 [facility] Comment on above: Result Comment: Reported eGFR is based on the CKD-EPI 2020 equation that does not use a race coefficient. Performed By: #### C BCA, CMP, 81298-3 #### [facility] ([id number]) [address] [place] [address] Glucose [Mass/Vol] 104 mg/dL High 65-99 [facility] Comment on above: Performed By: #### C BCA, CMP, 39918-6 #### [facility] ([id number]) [address] [address] [place] [address] Potassium [Moles/Vol] 3.7 mmol/L Normal 3.5-5.0 [facility] Comment on above: Performed By: #### C BCA, CMP, 06675-5 #### [facility] ([id number]) [address] [place] [address] Protein [Mass/Vol] 5.7 g/dL Low 6.0-8.0 [facility] Comment on above: Performed By: #### C BCA, CMP, 91982-2 #### [facility] ([id number]) [address] [place] [address] Sodium [Moles/Vol] 136 mmol/L Normal 134-146 [facility] Comment on above: Performed By: #### C BCA, CMP, 76042-0 #### [facility] ([id number]) [address] [address] [place] [address] Urea nitrogen [Mass/Vol] 12 mg/dL Normal 5-27 [facility] Comment on above: Performed By: #### C BCA, CMP, 17113-8 #### [facility] ([id number]) [address] [address] Glucose Glucometer (BldC) [M ass/Vol]on 04-18-2024 Glucose [Mass/Vol] 135 mg/dL High 65-99 [facility] Glucose [Mass/Vol] 168 mg/dL High 65-99 [facility] Glucose [Mass/Vol] 169 mg/dL High 65-99 [facility] HGB AND HCTon 04-18-2024 Hematocrit (Bld) [Volume fraction] 27.9 % Low 39-49 [facility] Comment on above: Performed By: #### Thais SHARMA CMP, 37276-4 #### [facility] ([id number]) [address] [address] Hemoglobin (Bld) [Mass/Vol] 9.6 g/dL Low 13.0-17.0 [facility] Comment on above: Performed By: #### Thais SHARMA CMP, 74754-3 #### [facility] ([id number]) [address], [address] [address] POTASSIUMon 04-18-2024 Potassium [Moles/Vol] 4.4 mmol/L Normal 3.5-5.0 [facility] Comment on above: Performed By: #### Thais SHARMA, CMP, 92912-2 #### [facility] ([id number]) [address], [address] [address] CBC AND AUTO DIFFon 04-17-20 ABSOLUTE BASOPHIL 0.0 X10E9/L Normal 0.0-0.2 [facility] Comment on above: Performed By: #### Thais SHARMA, CMP, 20530-1 #### [facility] ([id number]) [address] [address] ABSOLUTE NEUTROPHIL 2.5 X10E9/L Normal 1.5-6.[address] [facility] Comment on above: Performed By: #### Thais SHARMA, CMP, 30343-1 #### [facility] ([id number]) [address], [address] [place] [address] Basophils/100 WBC (Bld) 1.0 % Normal [facility] Comment on above: Performed By: #### C BCA, CMP, 12362-4 #### [facility] ([id number]) [address], [address] [place] [address] Eosinophils (Bld) [#/Vol] 0.2 10*3/uL Normal 0.0-0.4 [facility] Comment on above: Performed By: #### Thais BCA, CMP, 05559-1 #### [facility] ([id number]) [address], [address] [place] [address] Eosinophils/100 WBC (Bld) 4.1 % Normal [facility] Comment on above: Performed By: #### Thais SHARMA, CMP, 58384-0 #### [facility] ([id number]) [address], [address] [place] [address] Erythrocyte distribution width (RBC) [Ratio] 16.0 % High 11.5-15.0 [facility] Comment on above: Performed By: #### Thais SHARMA, CMP, 87052-7 #### [facility] ([id number]) [address] [address] [place] [address] Hematocrit (Bld) [Volume fraction] 27.8 % Low 39-49 [facility] Comment on above: Performed By: #### Thais BCA, CMP, 92946-2 #### [facility] ([id number]) [address] [address] [place] [address] Hemoglobin (Bld) [Mass/Vol] 9.7 g/dL Low 13.0-17.0 [facility] Comment on above: Performed By: #### Thais BCA, CMP, 09381-4 #### [facility] ([id number]) [address], [address] [place] [address] Lymphocytes (Bld) [#/Vol] 1.0 10*3/uL Normal 1.0-3.5 [facility] Comment on above: Performed By: #### Thais SHARMA CMP, 69090-1 #### [facility] ([id number]) [address], [facility] [address] [place] [address] Lymphocytes/100 WBC (Bld) 24.3 % Normal [facility] Comment on above: Performed By: #### Thais SHARMA CMP, 28510-5 #### [facility] ([id number]) [address], [facility] [address] [place] [address] MCH (RBC) [Entitic mass] 31.1 pg Normal 27-34 [facility] Comment on above: Performed By: #### Thais SHARMA CMP, 65137-1 #### [facility] ([id number]) [address], [address] [place] [address] MCHC (RBC) [Mass/Vol] 35.0 g/dL Normal 32-36 [facility] Comment on above: Performed By: #### Thais SHARMA CMP, 74492-4 #### [facility] ([id number]) [address], [address] [place] [address] MCV (RBC) [Entitic vol] 89 fL Normal 80-100 P [facility] Comment on above: Performed By: #### Thais SHARMA CMP, 04964-6 #### [facility] ([id number]) [address], [address] [place] [address] Monocytes (Bld) [#/Vol] 0.3 10*3/uL Normal 0-0.9 [facility] Comment on above: Performed By: #### Thais SHARMA, CMP, 26815-3 #### [facility] ([id number]) [address], [address] [place] [address] Monocytes/100 WBC (Bld) 8.3 % Normal P [facility] Comment on above: Performed By: #### C BCA, CMP, 58095-5 #### [facility] ([id number]) [address], [address] [place] [address] Neutrophils/100 WBC (Bld) 62.3 % Normal [facility] Comment on above: Performed By: #### C BCA, CMP, 16423-3 #### [facility] ([id number]) [address], [facility] [address] [place] [address] Platelet mean volume (Bld) [Entitic vol] 6.9 fL Low 7-12 [facility] Comment on above: Performed By: #### C BCA, CMP, 88690-8 #### [facility] ([id number]) [address], [facility] [address] [place] [address] Platelets (Bld) [#/Vol] 267 10*3/uL Normal 150-450 [facility] Comment on above: Performed By: #### C BCA, CMP, 46981-4 #### [facility] ([id number]) [address], [address] [place] [address] RBC COUNT 3.13 X10E12/L Low 4.10-5.70 [facility] Comment on above: Performed By: #### C BCA, CMP, 51991-9 #### [facility] ([id number]) [address], [facility] [address] [place] [address] WBC (Bld) [#/Vol] 4.0 10*3/uL Normal 4.0-11.0 [facility] Comment on above: Performed By: #### C BCA, CMP, 87861-8 #### [facility] ([id number]) [address], [address] [place] [address] COMPREHENSIVE METABOLIC PANE [place] 04-17-2024 Albumin [Mass/Vol] 3.7 g/dL Normal 3.2-5.3 [facility] Comment on above: Performed By: #### C BCA, CMP, 65793-6 #### [facility] ([id number]) [address], [address] [place] [address] ALP [Catalytic activity/Vol] 83 U/L Normal 39-130 [facility] Comment on above: Performed By: #### C BCA, CMP, 17213-5 #### [facility] ([id number]) [address], [address] [place] [address] ALT [Catalytic activity/Vol] 29 U/L Normal 0-40 [facility] Comment on above: Performed By: #### C BCA, CMP, 86556-3 #### [facility] ([id number]) [address], [address] [place] [address] Anion gap [Moles/Vol] 8 mmol/L Normal 5-15 [facility] Comment on above: Performed By: #### C BCA, CMP, 42881-5 #### [facility] ([id number]) [address], [address] [place] [address] AST [Catalytic activity/Vol] 23 U/L Normal 0-41 [facility] Comment on above: Performed By: #### C BCA, CMP, 62013-1 #### [facility] ([id number]) [address], [address] [place] [address] Bilirubin [Mass/Vol] 0.8 mg/dL Normal 0.3-1.[address] [facility] Comment on above: Performed By: #### C BCA, CMP, 22616-0 #### [facility] ([id number]) [address], [address] [place] [address] Calcium [Mass/Vol] 8.5 mg/dL Normal 8.5-10.5 [facility] Comment on above: Performed By: #### C BCA, CMP, 85976-2 #### [facility] ([id number]) [address], [address] [place] [address] Chloride [Moles/Vol] 102 mmol/L Normal 98-[address] [facility] Comment on above: Performed By: #### C BCA CMP, 75145-1 #### [facility] ([id number]) [address], [address] [place] [address] CO2 [Moles/Vol] 27 mmol/L Normal 22-32 [facility] Comment on above: Performed By: #### C BCA, CMP, 98269-6 #### [facility] ([id number]) [address], [facility] [address] [place] [address] Creatinine [Mass/Vol] 0.61 mg/dL Normal 0.60-1.30 [facility] Comment on above: Result Comment: METH OD TRACEABLE TO IDMS STANDARD Performed By: #### C ZACHARY, CMP, 33804-9 #### [facility] ([id number]) [address], [address] [place] [address] eGFR (CKD-EPI) NON-RACE DEPENDENT >90 Normal >59 [facility] Comment on above: Result Comment: Reported eGFR is based on the CKD-EPI 2020 equation that does not use a race coefficient. Performed By: #### C BCA, CMP, 24466-5 #### [facility] ([id number]) [address] [address] [place] [address] Glucose [Mass/Vol] 123 mg/dL High 65-99 [facility] Comment on above: Performed By: #### C BCA, CMP, 76931-9 #### [facility] ([id number]) [address] [address] [place] [address] Potassium [Moles/Vol] 4.1 mmol/L Normal 3.5-5.0 [facility] Comment on above: Performed By: #### C BCA, CMP, 10728-4 #### [facility] ([id number]) [address], [address] [place] [address] Protein [Mass/Vol] 5.7 g/dL Low 6.0-8.0 [facility] Comment on above: Performed By: #### Thais BCA, CMP, 68023-7 #### [facility] ([id number]) [address], [address] [place] [address] Sodium [Moles/Vol] 137 mmol/L Normal 134-146 [facility] Comment on above: Performed By: #### Thais BCA, CMP, 62429-1 #### [facility] ([id number]) [address], [address] [place] [address] Urea nitrogen [Mass/Vol] 16 mg/dL Normal 5-27 [facility] Comment on above: Performed By: #### Thais SHARMA, CMP, 26049-7 #### [facility] ([id number]) [address], [address] [place] [address] Glucose Glucometer (BldC) [M ass/Vol]on 04-17-2024 Glucose [Mass/Vol] 97 mg/dL Normal 65-99 [facility] HGB AND HCTon 04-17-2024 Hematocrit (Bld) [Volume fraction] 28.5 % Low 39-49 [facility] Comment on above: Performed By: #### Thais BCA, CMP, 77799-3 #### [facility] ([id number]) [address], [address] [place] [address] Hemoglobin (Bld) [Mass/Vol] 9.8 g/dL Low 13.0-17.0 [facility] Comment on above: Performed By: #### Thais BCA, CMP, 59280-8 #### [facility] ([id number]) [address], [address] [place] [address] Hematocrit (Bld) [Volume fraction] 29.3 % Low 39-49 [facility] Comment on above: Performed By: #### C ZACHARY, CMP, 28872-0 #### [facility] ([id number]) [address] [place] [address] Hemoglobin (Bld) [Mass/Vol] 10.0 g/dL Low 13.0-17.0 [facility] Comment on above: Performed By: #### C ZACHARY, CMP, 43138-1 #### [facility] ([id number]) [address], [address] [place] [address] CBC AND AUTO DIFFon 04-16-20 24 Eosinophils (Bld) [#/Vol] 0.1 10*3/uL Normal 0.0-0.4 [facility] Comment on above: Performed By: #### C ZACHARY, CMP ####[facility] ([id number])[address] [address] Eosinophils/100 WBC (Bld) 3.1 % Normal [facility] Comment on above: Performed By: #### C ZACHARY, CMP ####[facility] ([id number])[address] [address] Erythrocyte distribution width (RBC) [Ratio] 16.6 % High 11.5-15.0 [facility] Comment on above: Performed By: #### C BCA, CMP ####[facility] ([id number])[address] [address] Hematocrit (Bld) [Volume fraction] 28.1 % Low 39-49 [facility] Comment on above: Performed By: #### C BCA, CMP ####[facility] ([id number])[address] [address] Hemoglobin (Bld) [Mass/Vol] 9.8 g/dL Low 13.0-17.0 [facility] Comment on above: Performed By: #### C BCA, CMP ####[facility] ([id number])[address] [place] [address] Lymphocytes (Bld) [#/Vol] 1.2 10*3/uL Normal 1.0-3.5 [facility] Comment on above: Performed By: #### C BCA, CMP ####[facility] ([id number])[address] [place] [address] Lymphocytes/100 WBC (Bld) 27.6 % Normal [facility] Comment on above: Performed By: #### C BCA, CMP ####[facility] ([id number])[address], [place] [address] MCH (RBC) [Entitic mass] 31.6 pg Normal 27-34 [facility] Comment on above: Performed By: #### C BCA, CMP ####[facility] ([id number])[address] [place] [address] MCHC (RBC) [Mass/Vol] 34.9 g/dL Normal 32-36 [facility] Comment on above: Performed By: #### C BCA, CMP ####[facility] ([id number])[address] [place] [address] MCV (RBC) [Entitic vol] 91 fL Normal 80-100 [facility] Comment on above: Performed By: #### C BCA, CMP ####[facility] ([id number])[address] [address] [place] [address] Monocytes (Bld) [#/Vol] 0.2 10*3/uL Normal 0-0.9 [facility] Comment on above: Performed By: #### C BCA, CMP ####[facility] ([id number])[address] [place] [address] Monocytes/100 WBC (Bld) 5.1 % Normal [facility] Comment on above: Performed By: #### C ZACHARY, CMP ####[facility] ([id number])[address], [place] [address] Neutrophils (Bld) [#/Vol] 2.7 10*3/uL Normal 1.5-6.6 [facility] Comment on above: Performed By: #### C ZACHARY, CMP ####[facility] ([id number])[address], [place] [address] OVALOCYTE 1+ Abnormal NONE [facility] Comment on above: Performed By: #### C ZACHARY, CMP ####[facility] ([id number])[address] [place] [address] Platelet mean volume (Bld) [Entitic vol] 7.1 fL Normal 7-12 [facility] Comment on above: Performed By: #### C ZACHARY, CMP ####[facility] ([id number])[address] [place] [address] Platelets (Bld) [#/Vol] 257 10*3/uL Normal 150-450 [facility] Comment on above: Performed By: #### C ZACHARY, CMP ####[facility] ([id number])[address], [place] [address] POLYCHROMASIA 1+ Abnormal NONE [facility] Comment on above: Performed By: #### C ZACHARY, CMP ####[facility] ([id number])[address], [place] [address] RBC COUNT 3.10 X10E12/L Low 4.10-5.70 [facility] Comment on above: Performed By: #### C ZACHARY, CMP ####[facility] ([id number])[address], [place] [address] SEG NEUTROPHIL 64.2 % Normal [facility] Comment on above: Performed By: #### C BCA, CMP ####[facility] ([id number])[address], [place] [address] WBC (Bld) [#/Vol] 4.2 10*3/uL Normal 4.0-11.0 [facility] Comment on above: Performed By: #### C BCA, CMP ####[facility] ([id number])[address], [place] [address] COMPREHENSIVE METABOLIC PANE [facility] 04-16-2024 Albumin [Mass/Vol] 3.8 g/dL Normal 3.2-5.3 [facility] Comment on above: Performed By: #### C BCA, CMP ####[facility] ([id number])[address], [place] [address] ALP [Catalytic activity/Vol] 71 U/L Normal 39-130 [facility] Comment on above: Performed By: #### C BCA, CMP ####[facility] ([id number])[address], [place] [address] ALT [Catalytic activity/Vol] 19 U/L Normal 0-40 [facility] Comment on above: Performed By: #### C BCA, CMP ####[facility] ([id number])[address], [place] [address] Anion gap [Moles/Vol] 12 mmol/L Normal 5-15 [facility] Comment on above: Performed By: #### C BCA, CMP ####[facility] ([id number])[address], [place] [address] AST [Catalytic activity/Vol] 16 U/L Normal 0-41 [facility] Comment on above: Performed By: #### C BCA, CMP ####[facility] ([id number])[address], [place] [address] Bilirubin [Mass/Vol] 0.7 mg/dL Normal 0.3-1.[address] [facility] Comment on above: Performed By: #### C ZACHARY, CMP ####[facility] ([id number])[address], [place] [address] Calcium [Mass/Vol] 8.4 mg/dL Low 8.5-10.5 [facility] Comment on above: Performed By: #### C ZACHARY, CMP ####[facility] ([id number])[address] [address], [place] [address] Chloride [Moles/Vol] 102 mmol/L Normal 98-[address] [facility] Comment on above: Performed By: #### C BCA, CMP ####[facility] ([id number])[address] [address] [address] CO2 [Moles/Vol] 24 mmol/L Normal 22-32 [facility] Comment on above: Performed By: #### C ZACHARY, CMP ####[facility] ([id number])[address] [address], [place] [address] Creatinine [Mass/Vol] 0.60 mg/dL Normal 0.60-1.30 [facility] Comment on above: Result Comment: METH OD TRACEABLE TO IDMS STANDARD Performed By: #### C ZACHARY, CMP ####[facility] ([id number])[address] [address], [place] [address] eGFR (CKD-EPI) NON-RACE DEPENDENT >90 Normal >59 [facility] Comment on above: Result Comment: Reported eGFR is based on the CKD-EPI 2020 equation that does not use a race coefficient. Performed By: #### C BCA, CMP ####[facility] ([id number])[address] [address], [place] [address] Glucose [Mass/Vol] 147 mg/dL High 65-99 [facility] Comment on above: Performed By: #### C BCA, CMP ####[facility] ([id number])[address] [place] [address] Potassium [Moles/Vol] 3.8 mmol/L Normal 3.5-5.0 [facility] Comment on above: Performed By: #### C BCA, CMP ####[facility] ([id number])[address], [place] [address] Protein [Mass/Vol] 5.6 g/dL Low 6.0-8.0 [facility] Comment on above: Performed By: #### C BCA, CMP ####[facility] ([id number])[address] [place] [address] Sodium [Moles/Vol] 138 mmol/L Normal 134-146 [facility] Comment on above: Performed By: #### C BCA, CMP ####[facility] ([id number])[address], [place] [address] Urea nitrogen [Mass/Vol] 13 mg/dL Normal 5-27 [facility] Comment on above: Performed By: #### C BCA, CMP ####[facility] ([id number])[address], [place] [address] Glucose Glucometer (BldC) [M ass/Vol]on 04-16-2024 Glucose [Mass/Vol] 137 mg/dL High 65-99 [facility] Glucose [Mass/Vol] 145 mg/dL High 65-99 [facility] Glucose [Mass/Vol] 144 mg/dL High 65-99 [facility] Glucose [Mass/Vol] 151 mg/dL High 65-99 [facility] Glucose [Mass/Vol] 148 mg/dL High 65-99 [facility] HGB AND HCTon 04-16-2024 Hematocrit (Bld) [Volume fraction] 26.4 % Low 39-49 [facility] Comment on above: Performed By: #### C BCA, CMP, 45130-5 #### [facility] ([id number]) [address] [place] [address] Hemoglobin (Bld) [Mass/Vol] 9.4 g/dL Low 13.0-17.0 [facility] Comment on above: Performed By: #### C BCA, CMP, 64025-7 #### [facility] ([id number]) [address] [place] [address] Hematocrit (Bld) [Volume fraction] 30.2 % Low 39-49 [facility] Comment on above: Performed By: #### H H ####[facility] ([id number])[address], [place] [address] Hemoglobin (Bld) [Mass/Vol] 10.5 g/dL Low 13.0-17.0 [facility] Comment on above: Performed By: #### H H ####[facility] ([id number])[address], [place] [address] Hematocrit (Bld) [Volume fraction] 27.8 % Low 39-49 [facility] Comment on above: Performed By: #### H H ####[facility] ([id number])[address], [place] [address] Hemoglobin (Bld) [Mass/Vol] 9.6 g/dL Low 13.0-17.0 [facility] Comment on above: Performed By: #### H H ####[facility] ([id number])[address], [place] [address] CBC AND AUTO DIFFon 04-15-20 24 Eosinophils (Bld) [#/Vol] 0.3 10*3/uL Normal 0.0-0.4 [facility] Comment on above: Performed By: #### C BCA, CMP ####[facility] ([id number])[address] [address] Eosinophils/100 WBC (Bld) 5.0 % Normal [facility] Comment on above: Performed By: #### C BCA, CMP ####[facility] ([id number])[address], [place] [address] Erythrocyte distribution width (RBC) [Ratio] 16.0 % High 11.5-15.0 [facility] Comment on above: Performed By: #### C ZACHARY, CMP ####[facility] ([id number])[address] [place] [address] Hematocrit (Bld) [Volume fraction] 25.9 % Low 39-49 [facility] Comment on above: Performed By: #### C ZACHARY, CMP ####[facility] ([id number])[address] [address], [place] [address] Hemoglobin (Bld) [Mass/Vol] 9.0 g/dL Low 13.0-17.0 [facility] Comment on above: Performed By: #### C ZACHARY, CMP ####[facility] ([id number])[address] [address], [place] [address] Lymphocytes (Bld) [#/Vol] 1.6 10*3/uL Normal 1.0-3.5 [facility] Comment on above: Performed By: #### C BCA, CMP ####[facility] ([id number])[address] [address] [place] [address] Lymphocytes/100 WBC (Bld) 32.0 % Normal [facility] Comment on above: Performed By: #### C BCA, CMP ####[facility] ([id number])[address], [place] [address] MCH (RBC) [Entitic mass] 31.2 pg Normal 27-34 [facility] Comment on above: Performed By: #### C BCA, CMP ####[facility] ([id number])[address], [place] [address] MCHC (RBC) [Mass/Vol] 34.7 g/dL Normal 32-36 [facility] Comment on above: Performed By: #### C BCA, CMP ####[facility] ([id number])[address] [place] [address] MCV (RBC) [Entitic vol] 90 fL Normal 80-100 [facility] Comment on above: Performed By: #### C ZACHARY, CMP ####[facility] ([id number])[address] [address], [place] [address] Monocytes (Bld) [#/Vol] 0.4 10*3/uL Normal 0-0.9 [facility] Comment on above: Performed By: #### C BCA, CMP ####[facility] ([id number])[address] [address], [place] [address] Monocytes/100 WBC (Bld) 9.0 % Normal [facility] Comment on above: Performed By: #### C BCA, CMP ####[facility] ([id number])[address] [address] [place] [address] Neutrophils (Bld) [#/Vol] 2.7 10*3/uL Normal 1.5-6.6 [facility] Comment on above: Performed By: #### C BCA, CMP ####[facility] ([id number])[address] [address] [address] Platelet mean volume (Bld) [Entitic vol] 7.0 fL Normal 7-12 [facility] Comment on above: Performed By: #### C BCA, CMP ####[facility] ([id number])[address] [place] [address] Platelets (Bld) [#/Vol] 225 10*3/uL Normal 150-450 [facility] Comment on above: Performed By: #### C BCA, CMP ####[facility] ([id number])[address], [place] [address] POLYCHROMASIA 1+ Abnormal NONE [facility] Comment on above: Performed By: #### C BCA, CMP ####[facility] ([id number])[address], [place] [address] RBC COUNT 2.88 X10E12/L Low 4.10-5.70 [facility] Comment on above: Performed By: #### C BCA, CMP ####[facility] ([id number])[address] [address], [place] [address] SEG NEUTROPHIL 54.0 % Normal [facility] Comment on above: Performed By: #### C BCA, CMP ####[facility] ([id number])[address] [address] [place] [address] WBC (Bld) [#/Vol] 5.0 10*3/uL Normal 4.0-11.0 [facility] Comment on above: Performed By: #### C BCA, CMP ####[facility] ([id number])[address] [address] COMPREHENSIVE METABOLIC PANE [place] 04-15-2024 Albumin [Mass/Vol] 3.5 g/dL Normal 3.2-5.3 [facility] Comment on above: Performed By: #### C BCA, CMP ####[facility] ([id number])[address] [address] [place] [address] ALP [Catalytic activity/Vol] 64 U/L Normal 39-130 [facility] Comment on above: Performed By: #### C BCA, CMP ####[facility] ([id number])[address], [place] [address] ALT [Catalytic activity/Vol] 18 U/L Normal 0-40 [facility] Comment on above: Performed By: #### C BCA, CMP ####[facility] ([id number])[address], [place] [address] Anion gap [Moles/Vol] 8 mmol/L Normal 5-15 [facility] Comment on above: Performed By: #### C BCA, CMP ####[facility] ([id number])[address], [place] [address] AST [Catalytic activity/Vol] 18 U/L Normal 0-41 [facility] Comment on above: Performed By: #### C BCA, CMP ####[facility] ([id number])[address], [place] [address] Bilirubin [Mass/Vol] 0.7 mg/dL Normal 0.3-1.[address] [facility] Comment on above: Performed By: #### C BCA, CMP ####[facility] ([id number])[address], [place] [address] Calcium [Mass/Vol] 8.3 mg/dL Low 8.5-10.5 [facility] Comment on above: Performed By: #### C BCA, CMP ####[facility] ([id number])[address], [place] [address] Chloride [Moles/Vol] 100 mmol/L Normal 98-[address] [facility] Comment on above: Performed By: #### C BCA, CMP ####[facility] ([id number])[address], [place] [address] CO2 [Moles/Vol] 28 mmol/L Normal 22-32 [facility] Comment on above: Performed By: #### C BCA, CMP ####[facility] ([id number])[address] [address], [place] [address] Creatinine [Mass/Vol] 0.56 mg/dL Low 0.60-1.30 [facility] Comment on above: Result Comment: METH OD TRACEABLE TO IDMS STANDARD Performed By: #### C BCA, CMP ####[facility] ([id number])[address] [address], [place] [address] eGFR (CKD-EPI) NON-RACE DEPENDENT >90 Normal >59 [facility] Comment on above: Result Comment: Reported eGFR is based on the CKD-EPI 2020 equation that does not use a race coefficient. Performed By: #### C BCA, CMP ####[facility] ([id number])[address] [address], [place] [address] Glucose [Mass/Vol] 152 mg/dL High 65-99 [facility] Comment on above: Performed By: #### C BCA, CMP ####[facility] ([id number])[address] [address], [place] [address] Potassium [Moles/Vol] 4.2 mmol/L Normal 3.5-5.0 [facility] Comment on above: Performed By: #### C BCA, CMP ####[facility] ([id number])[address] [address] [place] [address] Protein [Mass/Vol] 5.4 g/dL Low 6.0-8.0 [facility] Comment on above: Performed By: #### C BCA, CMP ####[facility] ([id number])[address] [address] Sodium [Moles/Vol] 136 mmol/L Normal 134-146 [facility] Comment on above: Performed By: #### C BCA, CMP ####[facility] ([id number])[address] [place] [address] Urea nitrogen [Mass/Vol] 14 mg/dL Normal 5-27 [facility] Comment on above: Performed By: #### C BCA, CMP ####[facility] ([id number])[address], [address] [place] [address] Glucose Glucometer (BldC) [M ass/Vol]on 04-15-2024 Glucose [Mass/Vol] 159 mg/dL High 65-99 [facility] Glucose [Mass/Vol] 146 mg/dL High 65-99 [facility] Glucose [Mass/Vol] 145 mg/dL High 65-99 [facility] Glucose [Mass/Vol] 153 mg/dL High 65-99 [facility] Glucose [Mass/Vol] 164 mg/dL High 65-99 [facility] HGB AND HCTon 04-15-2024 Hematocrit (Bld) [Volume fraction] 27.1 % Low 39-49 [facility] Comment on above: Performed By: #### H H ####[facility] ([id number])[address] [address] [place] [address] Hemoglobin (Bld) [Mass/Vol] 9.3 g/dL Low 13.0-17.0 [facility] Comment on above: Performed By: #### H H ####[facility] ([id number])[address] [address] [place] [address] Hematocrit (Bld) [Volume fraction] 26.9 % Low 39-49 [facility] Comment on above: Performed By: #### H H ####[facility] ([id number])[address] [address] [place] [address] Hemoglobin (Bld) [Mass/Vol] 9.5 g/dL Low 13.0-17.0 [facility] Comment on above: Performed By: #### H H ####[facility] ([id number])[address], [place] [address] Hematocrit (Bld) [Volume fraction] 27.2 % Low 39-49 [facility] Comment on above: Performed By: #### H H ####[facility] ([id number])[address], [place] [address] Hemoglobin (Bld) [Mass/Vol] 9.4 g/dL Low 13.0-17.0 [facility] Comment on above: Performed By: #### H H ####[facility] ([id number])[address], [place] [address] CBC AND AUTO DIFFon 04-14-20 24 Band form neutrophils/100 WBC (Bld) 1.0 % Normal [facility] Comment on above: Performed By: #### U A #### [facility] ([id number]) [address], [address] [place] [address] Eosinophils (Bld) [#/Vol] 0.5 10*3/uL High 0.0-0.4 [facility] Comment on above: Performed By: #### U A #### [facility] ([id number]) [address], [address] [place] [address] Eosinophils/100 WBC (Bld) 7.0 % Normal [facility] Comment on above: Performed By: #### U A #### [facility] ([id number]) [address] [place] [address] Erythrocyte distribution width (RBC) [Ratio] 15.8 % High 11.5-15.0 [facility] Comment on above: Performed By: #### U A #### [facility] ([id number]) [address], [address] [place] [address] Hematocrit (Bld) [Volume fraction] 25.8 % Low 39-49 [facility] Comment on above: Performed By: #### U A #### [facility] ([id number]) [address], [address] [place] [address] Hemoglobin (Bld) [Mass/Vol] 9.0 g/dL Low 13.0-17.0 [facility] Comment on above: Performed By: #### U A #### [facility] ([id number]) [address] [place] [address] IMMATURE MONONUCLEAR 1.0 % Normal [facility] Comment on above: Performed By: #### U A #### [facility] ([id number]) [address], [address] [place] [address] Lymphocytes (Bld) [#/Vol] 1.7 10*3/uL Normal 1.0-3.5 [facility] Comment on above: Performed By: #### U A #### [facility] ([id number]) [address], [address] [place] [address] Lymphocytes/100 WBC (Bld) 23.0 % Normal [facility] Comment on above: Performed By: #### U A #### [facility] ([id number]) [address], [address] [place] [address] MCH (RBC) [Entitic mass] 31.0 pg Normal 27-34 [facility] Comment on above: Performed By: #### U A #### [facility] ([id number]) [address], [address] [place] [address] MCHC (RBC) [Mass/Vol] 34.9 g/dL Normal 32-36 [facility] Comment on above: Performed By: #### U A #### [facility] ([id number]) [address] [place] [address] MCV (RBC) [Entitic vol] 89 fL Normal 80-100 P [facility] Comment on above: Performed By: #### U A #### [facility] ([id number]) [address] [place] [address] Metamyelocytes/100 WBC (Bld) 1.0 % Normal [facility] Comment on above: Performed By: #### U A #### [facility] ([id number]) [address] [place] [address] Monocytes (Bld) [#/Vol] 0.5 10*3/uL Normal 0-0.9 [facility] Comment on above: Performed By: #### U A #### [facility] ([id number]) [address] [place] [address] Monocytes/100 WBC (Bld) 7.0 % Normal [facility] Comment on above: Performed By: #### U A #### [facility] ([id number]) [address], [address] [place] [address] MYELOCYTE 1.0 % Normal [facility] Comment on above: Performed By: #### U A #### [facility] ([id number]) [address] [place] [address] Neutrophils (Bld) [#/Vol] 4.4 10*3/uL Normal 1.5-6.6 [facility] Comment on above: Performed By: #### U A #### [facility] ([id number]) [address] [place] [address] NUCLEATED RBC 1.0 /100 WBC Normal 0.0-1.0 [facility] Comment on above: Performed By: #### U A #### [facility] ([id number]) [address] [place] [address] Platelet mean volume (Bld) [Entitic vol] 7.2 fL Normal 7-12 [facility] Comment on above: Performed By: #### U A #### [facility] ([id number]) [address] [place] [address] Platelets (Bld) [#/Vol] 241 10*3/uL Normal 150-450 [facility] Comment on above: Performed By: #### U A #### [facility] ([id number]) [address] [place] [address] POLYCHROMASIA 1+ Abnormal NONE [facility] Comment on above: Performed By: #### U A #### [facility] ([id number]) [address] [place] [address] RBC COUNT 2.90 X10E12/L Low 4.10-5.70 [facility] Comment on above: Performed By: #### U A #### [facility] ([id number]) [address], [address] [place] [address] SEG NEUTROPHIL 59.0 % Normal [facility] Comment on above: Performed By: #### U A #### [facility] ([id number]) [address], [address] [place] [address] WBC (Bld) [#/Vol] 7.4 10*3/uL Normal 4.0-11.0 [facility] Comment on above: Performed By: #### U A #### [facility] ([id number]) [address], [address] [place] [address] COMPREHENSIVE METABOLIC PANE [place] 04-14-2024 Albumin [Mass/Vol] 3.6 g/dL Normal 3.2-5.3 [facility] Comment on above: Performed By: #### U A #### [facility] ([id number]) [address], [address] [place] [address] ALP [Catalytic activity/Vol] 55 U/L Normal 39-130 [facility] Comment on above: Performed By: #### U A #### [facility] ([id number]) [address] [place] [address] ALT [Catalytic activity/Vol] 10 U/L Normal 0-40 [facility] Comment on above: Performed By: #### U A #### [facility] ([id number]) [address] [place] [address] Anion gap [Moles/Vol] 10 mmol/L Normal 5-15 [facility] Comment on above: Performed By: #### U A #### [facility] ([id number]) [address] [place] [address] AST [Catalytic activity/Vol] 12 U/L Normal 0-41 [facility] Comment on above: Performed By: #### U A #### [facility] ([id number]) [address] [place] [address] Bilirubin [Mass/Vol] 0.7 mg/dL Normal 0.3-1.[address] [facility] Comment on above: Performed By: #### U A #### [facility] ([id number]) [address] [place] [address] Calcium [Mass/Vol] 8.4 mg/dL Low 8.5-10.5 [facility] Comment on above: Performed By: #### U A #### [facility] ([id number]) [address], [address] [place] [address] Chloride [Moles/Vol] 100 mmol/L Normal 98-[address] [facility] Comment on above: Performed By: #### U A #### [facility] ([id number]) [address] [place] [address] CO2 [Moles/Vol] 26 mmol/L Normal 22-32 [facility] Comment on above: Performed By: #### U A #### [facility] ([id number]) [address], [address] [place] [address] Creatinine [Mass/Vol] 0.61 mg/dL Normal 0.60-1.30 [facility] Comment on above: Result Comment: METH OD TRACEABLE TO IDMS STANDARD Performed By: #### U A #### [facility] ([id number]) [address], [address] [place] [address] eGFR (CKD-EPI) NON-RACE DEPENDENT >90 Normal >59 [facility] Comment on above: Result Comment: Reported eGFR is based on the CKD-EPI 2020 equation that does not use a race coefficient. Performed By: #### U A #### [facility] ([id number]) [address] [place] [address] Glucose [Mass/Vol] 189 mg/dL High 65-99 [facility] Comment on above: Performed By: #### U A #### [facility] ([id number]) [address] [address] [place] [address] Potassium [Moles/Vol] 4.0 mmol/L Normal 3.5-5.0 [facility] Comment on above: Performed By: #### U A #### [facility] ([id number]) [address] [place] [address] Protein [Mass/Vol] 5.6 g/dL Low 6.0-8.0 [facility] Comment on above: Performed By: #### U A #### [facility] ([id number]) [address] [address] [place] [address] Sodium [Moles/Vol] 136 mmol/L Normal 134-146 [facility] Comment on above: Performed By: #### U A #### [facility] ([id number]) [address] [address] [place] [address] Urea nitrogen [Mass/Vol] 23 mg/dL Normal 5-27 [facility] Comment on above: Performed By: #### U A #### [facility] ([id number]) [address] [place] [address] Glucose Glucometer (BldC) [M ass/Vol]on 04-14-2024 Glucose [Mass/Vol] 148 mg/dL High 65-99 [facility] Glucose [Mass/Vol] 158 mg/dL High 65-99 [facility] Glucose [Mass/Vol] 180 mg/dL High 65-99 [facility] Glucose [Mass/Vol] 185 mg/dL High 65-99 [facility] HGB AND HCTon 04-14-2024 Hematocrit (Bld) [Volume fraction] 26.1 % Low 39-49 [facility] Comment on above: Performed By: #### U A #### [facility] ([id number]) [address] [place] [address] Hemoglobin (Bld) [Mass/Vol] 9.2 g/dL Low 13.0-17.0 [facility] Comment on above: Performed By: #### U A #### [facility] ([id number]) [address] [place] [address] Hematocrit (Bld) [Volume fraction] 26.2 % Low 39-49 [facility] Comment on above: Performed By: #### U A #### [facility] ([id number]) [address] [place] [address] Hemoglobin (Bld) [Mass/Vol] 8.7 g/dL Low 13.0-17.0 [facility] Comment on above: Performed By: #### U A #### [facility] ([id number]) [address] [place] [address] TTG AB IGA IGGon 04-14-2024 TTG AB IGA <1.2 Normal <4.0 (Negative) [facility] TTG AB IGG <1.2 Normal <6.0 (Negative) [facility] Comment on above: Result Comment: NOTE Test Performed by: [facility] [address] [place] [address] Outdoor Illuminating Engineer: Naty Doyle Ph.D.; CLIA# [id number] CBC AND AUTO DIFFon 04-13-20 Eosinophils (Bld) [#/Vol] 0.2 10*3/uL Normal 0.0-0.4 [facility] Comment on above: Performed By: #### C ZACHARY, CMP ####[facility] ([id number])[address] [address] Eosinophils/100 WBC (Bld) 3.0 % Normal [facility] Comment on above: Performed By: #### C ZACHARY, CMP ####[facility] ([id number])[address] [address] [place] [address] Erythrocyte distribution width (RBC) [Ratio] 14.4 % Normal 11.5-15.0 [facility] Comment on above: Performed By: #### C BCA, CMP ####[facility] ([id number])[address] [address] Hematocrit (Bld) [Volume fraction] 17.2 % Low 39-49 [facility] Comment on above: Performed By: #### C BCA, CMP ####[facility] ([id number])[address] [address] Hemoglobin (Bld) [Mass/Vol] 5.8 g/dL Critically low 13.0-17.0 [facility] Comment on above: Performed By: #### C BCA, CMP ####[facility] ([id number])[address] [address] Lymphocytes (Bld) [#/Vol] 2.1 10*3/uL Normal 1.0-3.5 [facility] Comment on above: Performed By: #### C BCA, CMP ####[facility] ([id number])[address] [place] [address] Lymphocytes/100 WBC (Bld) 27.0 % Normal [facility] Comment on above: Performed By: #### C BCA, CMP ####[facility] ([id number])[address] [place] [address] MCH (RBC) [Entitic mass] 30.4 pg Normal 27-34 [facility] Comment on above: Performed By: #### C BCA, CMP ####[facility] ([id number])[address] [address] [place] [address] MCHC (RBC) [Mass/Vol] 33.9 g/dL Normal 32-36 [facility] Comment on above: Performed By: #### C BCA, CMP ####[facility] ([id number])[address] [place] [address] MCV (RBC) [Entitic vol] 90 fL Normal 80-100 P [facility] Comment on above: Performed By: #### C BCA, CMP ####[facility] ([id number])[address] [address] [place] [address] Metamyelocytes/100 WBC (Bld) 1.0 % Normal [facility] Comment on above: Performed By: #### C BCA, CMP ####[facility] ([id number])[address] [place] [address] Monocytes (Bld) [#/Vol] 0.4 10*3/uL Normal 0-0.9 [facility] Comment on above: Performed By: #### C BCA, CMP ####[facility] ([id number])[address] [address] Monocytes/100 WBC (Bld) 5.0 % Normal P [facility] Comment on above: Performed By: #### C ZACHARY, CMP ####[facility] ([id number])[address], [place] [address] Neutrophils (Bld) [#/Vol] 4.8 10*3/uL Normal 1.5-6.6 [facility] Comment on above: Performed By: #### C ZACHARY, CMP ####[facility] ([id number])[address], [place] [address] NUCLEATED RBC 1.0 /100 WBC Normal 0.0-1.0 [facility] Comment on above: Performed By: #### C ZACHARY, CMP ####[facility] ([id number])[address] [address], [place] [address] Platelet mean volume (Bld) [Entitic vol] 7.3 fL Normal 7-12 [facility] Comment on above: Performed By: #### C ZACHARY, CMP ####[facility] ([id number])[address] [address], [place] [address] Platelets (Bld) [#/Vol] 259 10*3/uL Normal 150-450 [facility] Comment on above: Performed By: #### C ZACHARY, CMP ####[facility] ([id number])[address] [address], [place] [address] POLYCHROMASIA 2+ Abnormal NONE [facility] Comment on above: Performed By: #### C ZACHARY, CMP ####[facility] ([id number])[address] [address], [place] [address] RBC COUNT 1.92 X10E12/L Low 4.10-5.70 [facility] Comment on above: Performed By: #### C BCA, CMP ####[facility] ([id number])[address], [place] [address] SEG NEUTROPHIL 64.0 % Normal [facility] Comment on above: Performed By: #### C BCA, CMP ####[facility] ([id number])[address] [place] [address] WBC (Bld) [#/Vol] 7.6 10*3/uL Normal 4.0-11.0 [facility] Comment on above: Performed By: #### C BCA, CMP ####[facility] ([id number])[address], [place] [address] COMPREHENSIVE METABOLIC PANE [place] 04-13-2024 Albumin [Mass/Vol] 3.3 g/dL Normal 3.2-5.3 [facility] Comment on above: Performed By: #### C BCA, CMP ####[facility] ([id number])[address], [place] [address] ALP [Catalytic activity/Vol] 48 U/L Normal 39-130 [facility] Comment on above: Performed By: #### C BCA, CMP ####[facility] ([id number])[address], [place] [address] ALT [Catalytic activity/Vol] 8 U/L Normal 0-40 [facility] Comment on above: Performed By: #### C BCA, CMP ####[facility] ([id number])[address] [address] [place] [address] Anion gap [Moles/Vol] 8 mmol/L Normal 5-15 [facility] Comment on above: Performed By: #### C BCA, CMP ####[facility] ([id number])[address], [place] [address] AST [Catalytic activity/Vol] 7 U/L Normal 0-41 [facility] Comment on above: Performed By: #### C BCA, CMP ####[facility] ([id number])[address] [address], [place] [address] Bilirubin [Mass/Vol] 0.5 mg/dL Normal 0.3-1.[address] [facility] Comment on above: Performed By: #### C BCA, CMP ####[facility] ([id number])[address] [address], [place] [address] Calcium [Mass/Vol] 8.4 mg/dL Low 8.5-10.5 [facility] Comment on above: Performed By: #### C BCA, CMP ####[facility] ([id number])[address] [address] Chloride [Moles/Vol] 102 mmol/L Normal 98-[address] [facility] Comment on above: Performed By: #### C BCA, CMP ####[facility] ([id number])[address] [address] CO2 [Moles/Vol] 27 mmol/L Normal 22-32 [facility] Comment on above: Performed By: #### C BCA, CMP ####[facility] ([id number])[address] [address] Creatinine [Mass/Vol] 0.64 mg/dL Normal 0.60-1.30 [facility] Comment on above: Result Comment: METH OD TRACEABLE TO IDMS STANDARD Performed By: #### C BCA, CMP ####[facility] ([id number])[address] [address] eGFR (CKD-EPI) NON-RACE DEPENDENT >90 Normal >59 [facility] Comment on above: Result Comment: Reported eGFR is based on the CKD-EPI 2020 equation that does not use a race coefficient. Performed By: #### C BCA, CMP ####[facility] ([id number])[address] [address] Glucose [Mass/Vol] 218 mg/dL High 65-99 [facility] Comment on above: Performed By: #### C BCA, CMP ####[facility] ([id number])[address], [address] [place] [address] Potassium [Moles/Vol] 3.7 mmol/L Normal 3.5-5.0 [facility] Comment on above: Performed By: #### C BCA, CMP ####[facility] ([id number])[address] [address] [place] [address] Protein [Mass/Vol] 4.9 g/dL Low 6.0-8.0 [facility] Comment on above: Performed By: #### C BCA, CMP ####[facility] ([id number])[address] [address] [place] [address] Sodium [Moles/Vol] 137 mmol/L Normal 134-146 [facility] Comment on above: Performed By: #### C BCA, CMP ####[facility] ([id number])[address] [address] [place] [address] Urea nitrogen [Mass/Vol] 35 mg/dL High 5-27 [facility] Comment on above: Performed By: #### C BCA, CMP ####[facility] ([id number])[address] [address] [address] CTA ABD AND PELVISon 03-27 CT [...] Ruth MD on 04/13/2024 5:08 PM Normal [facility] Glucose Glucometer (BldC) [M ass/Vol]on 04-13-2024 Glucose [Mass/Vol] 195 mg/dL High 65-99 [facility] Glucose [Mass/Vol] 215 mg/dL High 65-99 [facility] Glucose [Mass/Vol] 214 mg/dL High 65-99 [facility] Glucose [Mass/Vol] 208 mg/dL High 65-99 [facility] HGB AND HCTon 04-13-2024 Hematocrit (Bld) [Volume fraction] 24.2 % Low 39-49 [facility] Comment on above: Performed By: #### U A #### [facility] ([id number]) [address], [address] [place] [address] Hemoglobin (Bld) [Mass/Vol] 8.5 g/dL Low 13.0-17.0 [facility] Comment on above: Performed By: #### U A #### [facility] ([id number]) [address] [place] [address] Hematocrit (Bld) [Volume fraction] 22.5 % Low 39-49 [facility] Comment on above: Performed By: #### H H ####[facility] ([id number])[address], [place] [address] Hemoglobin (Bld) [Mass/Vol] 7.8 g/dL Low 13.0-17.0 [facility] Comment on above: Performed By: #### H H ####[facility] ([id number])[address] [place] [address] Hematocrit (Bld) [Volume fraction] 16.3 % Low 39-49 [facility] Comment on above: Performed By: #### H H ####[facility] ([id number])[address] [place] [address] Hemoglobin (Bld) [Mass/Vol] 5.9 g/dL Critically low 13.0-17.0 [facility] Comment on above: Performed By: #### H H ####[facility] ([id number])[address], [place] [address] CBC AND AUTO DIFFon 04-12-20 24 ABSOLUTE BASOPHIL 0.0 X10E9/L Normal 0.0-0.2 [facility] Comment on above: Performed By: #### C BCA, CMP #### [facility] ([id number]) [address], [address] [place] [address] ABSOLUTE NEUTROPHIL 4.8 X10E9/L Normal 1.5-6.[address] [facility] Comment on above: Performed By: #### C BCA, CMP #### [facility] ([id number]) [address], [address] [place] [address] Basophils/100 WBC (Bld) 0.6 % Normal P [facility] Comment on above: Performed By: #### C BCA, CMP #### [facility] ([id number]) [address] [address] [place] [address] Eosinophils (Bld) [#/Vol] 0.0 10*3/uL Normal 0.0-0.4 [facility] Comment on above: Performed By: #### C BCA, CMP #### [facility] ([id number]) [address] [place] [address] Eosinophils/100 WBC (Bld) 0.5 % Normal [facility] Comment on above: Performed By: #### C ZACHARY, CMP #### [facility] ([id number]) [address] [address] [place] [address] Erythrocyte distribution width (RBC) [Ratio] 14.4 % Normal 11.5-15.0 [facility] Comment on above: Performed By: #### C BCA, CMP #### [facility] ([id number]) [address] [address] [place] [address] Hematocrit (Bld) [Volume fraction] 22.5 % Low 39-49 [facility] Comment on above: Performed By: #### C BCA, CMP #### [facility] ([id number]) [address] [address] [place] [address] Hemoglobin (Bld) [Mass/Vol] 7.9 g/dL Low 13.0-17.0 [facility] Comment on above: Performed By: #### C BCA, CMP #### [facility] ([id number]) [address] [address] [place] [address] Lymphocytes (Bld) [#/Vol] 1.6 10*3/uL Normal 1.0-3.5 [facility] Comment on above: Performed By: #### C BCA, CMP #### [facility] ([id number]) [address] [place] [address] Lymphocytes/100 WBC (Bld) 22.9 % Normal [facility] Comment on above: Performed By: #### C ZACHARY, CMP #### [facility] ([id number]) [address], [facility] [address] [place] [address] MCH (RBC) [Entitic mass] 31.4 pg Normal 27-34 [facility] Comment on above: Performed By: #### C BCA, CMP #### [facility] ([id number]) [address], [facility] [address] [place] [address] MCHC (RBC) [Mass/Vol] 35.1 g/dL Normal 32-36 [facility] Comment on above: Performed By: #### C ZACHARY, CMP #### [facility] ([id number]) [address] [address] [place] [address] MCV (RBC) [Entitic vol] 90 fL Normal 80-100 P [facility] Comment on above: Performed By: #### C ZACHARY, CMP #### [facility] ([id number]) [address], [facility] [address] [place] [address] Monocytes (Bld) [#/Vol] 0.4 10*3/uL Normal 0-0.9 [facility] Comment on above: Performed By: #### C BCA, CMP #### [facility] ([id number]) [address], [address] [address] Monocytes/100 WBC (Bld) 5.7 % Normal P [facility] Comment on above: Performed By: #### C BCA, CMP #### [facility] ([id number]) [address], [facility] [address] [place] [address] Neutrophils/100 WBC (Bld) 70.3 % Normal [facility] Comment on above: Performed By: #### C BCA, CMP #### [facility] ([id number]) [address], [address] [place] [address] Platelet mean volume (Bld) [Entitic vol] 7.4 fL Normal 7-12 [facility] Comment on above: Performed By: #### C BCA, CMP #### [facility] ([id number]) [address], [address] [place] [address] Platelets (Bld) [#/Vol] 281 10*3/uL Normal 150-450 [facility] Comment on above: Performed By: #### C ZACHARY, CMP #### [facility] ([id number]) [address] [place] [address] RBC COUNT 2.52 X10E12/L Low 4.10-5.70 [facility] Comment on above: Performed By: #### C BCA, CMP #### [facility] ([id number]) [address] [place] [address] WBC (Bld) [#/Vol] 6.9 10*3/uL Normal 4.0-11.0 [facility] Comment on above: Performed By: #### C ZACHARY, CMP #### [facility] ([id number]) [address], [address] [place] [address] COMPREHENSIVE METABOLIC PANE Delonte 04-12-2024 Albumin [Mass/Vol] 3.9 g/dL Normal 3.2-5.3 [facility] Comment on above: Performed By: #### C BCA, CMP #### [facility] ([id number]) [address], [address] [place] [address] ALP [Catalytic activity/Vol] 58 U/L Normal 39-130 [facility] Comment on above: Performed By: #### C BCA, CMP #### [facility] ([id number]) [address], [address] [place] [address] ALT [Catalytic activity/Vol] 9 U/L Normal 0-40 [facility] Comment on above: Performed By: #### C BCA, CMP #### [facility] ([id number]) [address] [place] [address] Anion gap [Moles/Vol] 9 mmol/L Normal 5-15 [facility] Comment on above: Performed By: #### C BCA, CMP #### [facility] ([id number]) [address] [place] [address] AST [Catalytic activity/Vol] 9 U/L Normal 0-41 [facility] Comment on above: Performed By: #### C BCA, CMP #### [facility] ([id number]) [address] [place] [address] Bilirubin [Mass/Vol] 0.6 mg/dL Normal 0.3-1.[address] [facility] Comment on above: Performed By: #### C BCA, CMP #### [facility] ([id number]) [address], [address] [place] [address] Calcium [Mass/Vol] 8.8 mg/dL Normal 8.5-10.5 [facility] Comment on above: Performed By: #### C BCA, CMP #### [facility] ([id number]) [address], [address] [place] [address] Chloride [Moles/Vol] 104 mmol/L Normal 98-[address] [facility] Comment on above: Performed By: #### C BCA, CMP #### [facility] ([id number]) [address], [address] [place] [address] CO2 [Moles/Vol] 27 mmol/L Normal 22-32 [facility] Comment on above: Performed By: #### C BCA, CMP #### [facility] ([id number]) [address] [place] [address] Creatinine [Mass/Vol] 0.62 mg/dL Normal 0.60-1.30 [facility] Comment on above: Result Comment: METH OD TRACEABLE TO IDMS STANDARD Performed By: #### C BCA, CMP #### [facility] ([id number]) [address], [address] [place] [address] eGFR (CKD-EPI) NON-RACE DEPENDENT >90 Normal >59 [facility] Comment on above: Result Comment: Reported eGFR is based on the CKD-EPI 2020 equation that does not use a race coefficient. Performed By: #### C BCA, CMP #### [facility] ([id number]) [address], [address] [place] [address] Glucose [Mass/Vol] 206 mg/dL High 65-99 [facility] Comment on above: Performed By: #### C BCA, CMP #### [facility] ([id number]) [address], [address] [place] [address] Potassium [Moles/Vol] 3.7 mmol/L Normal 3.5-5.0 [facility] Comment on above: Performed By: #### C BCA, CMP #### [facility] ([id number]) [address], [address] [place] [address] Protein [Mass/Vol] 5.8 g/dL Low 6.0-8.0 [facility] Comment on above: Performed By: #### C BCA, CMP #### [facility] ([id number]) [address], [address] [place] [address] Sodium [Moles/Vol] 140 mmol/L Normal 134-146 [facility] Comment on above: Performed By: #### C BCA, CMP #### [facility] ([id number]) [address], [address] [place] [address] Urea nitrogen [Mass/Vol] 24 mg/dL Normal 5-27 [facility] Comment on above: Performed By: #### C BCA, CMP #### [facility] ([id number]) [address] [place] [address] Glucose Glucometer (BldC) [M ass/Vol]on 04-12-2024 Glucose [Mass/Vol] 231 mg/dL High 65-99 [facility] Glucose [Mass/Vol] 201 mg/dL High 65-99 [facility] Glucose [Mass/Vol] 265 mg/dL High 65-99 [facility] Glucose [Mass/Vol] 242 mg/dL High 65-99 [facility] Laboratory comment Harsh (Repo rt)on 04-12-2024 PLATELET INHIB,P2Y12 324 PRU Normal [facility] Comment on above: Result Comment: Low hematocrit, low platelet count and some hereditary disorders may affect results. Normal platelet reactivity due to low P2Y12 inhibition response. The P2Y12 Test should be interpreted in conjunction with other clinical and lab data. Performed By: #### C ZACHARY, CMP #### [facility] ([id number]) [address], [address] [place] [address] MR BRAIN WO CONTon 4 MR BRAIN [...] Metz MD on 04/12/2024 11:08 PM Normal [facility] CBC AND AUTO DIFFon 04-11-20 24 ABSOLUTE BASOPHIL 0.0 X10E9/L Normal 0.0-0.2 [facility] Comment on above: Performed By: #### C BCA, CMP, 24392-2 #### [facility] ([id number]) [address], [address] [place] [address] ABSOLUTE NEUTROPHIL 5.2 X10E9/L Normal 1.5-6.[address] [facility] Comment on above: Performed By: #### C BCA, CMP, 35117-2 #### [facility] ([id number]) [address], [address] [place] [address] Basophils/100 WBC (Bld) 0.6 % Normal [facility] Comment on above: Performed By: #### C BCA, CMP, 96701-9 #### [facility] ([id number]) [address], [address] [place] [address] Eosinophils (Bld) [#/Vol] 0.0 10*3/uL Normal 0.0-0.4 [facility] Comment on above: Performed By: #### C BCA, CMP, 45235-9 #### [facility] ([id number]) [address], [address] [place] [address] Eosinophils/100 WBC (Bld) 0.3 % Normal [facility] Comment on above: Performed By: #### C BCA, CMP, 72925-8 #### [facility] ([id number]) [address], [address] [place] [address] Erythrocyte distribution width (RBC) [Ratio] 14.8 % Normal 11.5-15.0 [facility] Comment on above: Performed By: #### C BCA, CMP, 32441-3 #### [facility] ([id number]) [address], [address] [place] [address] Hematocrit (Bld) [Volume fraction] 22.2 % Low 39-49 [facility] Comment on above: Performed By: #### C BCA, CMP, 19778-3 #### [facility] ([id number]) [address], [facility] [address] [place] [address] Hemoglobin (Bld) [Mass/Vol] 7.8 g/dL Low 13.0-17.0 [facility] Comment on above: Performed By: #### Thais BCA, CMP, 21804-7 #### [facility] ([id number]) [address] [address] Lymphocytes (Bld) [#/Vol] 1.2 10*3/uL Normal 1.0-3.5 [facility] Comment on above: Performed By: #### Thais BCA, CMP, 17418-6 #### [facility] ([id number]) [address], [facility] [address] [place] [address] Lymphocytes/100 WBC (Bld) 17.7 % Normal [facility] Comment on above: Performed By: #### Thais BCA, CMP, 41865-8 #### [facility] ([id number]) [address], [facility] [address] [place] [address] MCH (RBC) [Entitic mass] 31.6 pg Normal 27-34 [facility] Comment on above: Performed By: #### C BCA, CMP, 71618-8 #### [facility] ([id number]) [address], [facility] [address] [place] [address] MCHC (RBC) [Mass/Vol] 35.3 g/dL Normal 32-36 [facility] Comment on above: Performed By: #### C BCA, CMP, 78822-0 #### [facility] ([id number]) [address], [address] [place] [address] MCV (RBC) [Entitic vol] 90 fL Normal 80-100 P [facility] Comment on above: Performed By: #### C BCA, CMP, 76865-8 #### [facility] ([id number]) [address] [place] [address] Monocytes (Bld) [#/Vol] 0.4 10*3/uL Normal 0-0.9 [facility] Comment on above: Performed By: #### C BCA, CMP, 47973-0 #### [facility] ([id number]) [address] [place] [address] Monocytes/100 WBC (Bld) 5.2 % Normal [facility] Comment on above: Performed By: #### Thais BCA, CMP, 81584-9 #### [facility] ([id number]) [address] [place] [address] Neutrophils/100 WBC (Bld) 76.2 % Normal [facility] Comment on above: Performed By: #### Thais SHARMA, CMP, 57031-8 #### [facility] ([id number]) [address] [place] [address] Platelet mean volume (Bld) [Entitic vol] 7.6 fL Normal 7-12 [facility] Comment on above: Performed By: #### Thais BCA, CMP, 89590-2 #### [facility] ([id number]) [address] [place] [address] Platelets (Bld) [#/Vol] 280 10*3/uL Normal 150-450 [facility] Comment on above: Performed By: #### Thais BCA, CMP, 95957-4 #### [facility] ([id number]) [address], [address] [place] [address] RBC COUNT 2.48 X10E12/L Low 4.10-5.70 [facility] Comment on above: Performed By: #### C BCA, CMP, 39288-0 #### [facility] ([id number]) [address] [place] [address] WBC (Bld) [#/Vol] 6.8 10*3/uL Normal 4.0-11.0 [facility] Comment on above: Performed By: #### C BCA, CMP, 44374-0 #### [facility] ([id number]) [address] [place] [address] COMPREHENSIVE METABOLIC PANE Delonte 04-11-2024 Albumin [Mass/Vol] 3.7 g/dL Normal 3.2-5.3 [facility] Comment on above: Performed By: #### C BCA, CMP, 28989-5 #### [facility] ([id number]) [address], [address] [place] [address] ALP [Catalytic activity/Vol] 52 U/L Normal 39-130 [facility] Comment on above: Performed By: #### C BCA, CMP, 11992-4 #### [facility] ([id number]) [address] [place] [address] ALT [Catalytic activity/Vol] 9 U/L Normal 0-40 [facility] Comment on above: Performed By: #### C BCA, CMP, 12294-8 #### [facility] ([id number]) [address] [place] [address] Anion gap [Moles/Vol] 8 mmol/L Normal 5-15 [facility] Comment on above: Performed By: #### C BCA, CMP, 41678-0 #### [facility] ([id number]) [address] [place] [address] AST [Catalytic activity/Vol] 17 U/L Normal 0-41 [facility] Comment on above: Performed By: #### C BCA, CMP, 58378-8 #### [facility] ([id number]) [address] [place] [address] Bilirubin [Mass/Vol] 0.5 mg/dL Normal 0.3-1.[address] [facility] Comment on above: Performed By: #### C BCA, CMP, 31395-9 #### [facility] ([id number]) [address] [place] [address] Calcium [Mass/Vol] 8.5 mg/dL Normal 8.5-10.5 [facility] Comment on above: Performed By: #### C BCA, CMP, 22855-4 #### [facility] ([id number]) [address] [place] [address] Chloride [Moles/Vol] 110 mmol/L High 98-[address] [facility] Comment on above: Performed By: #### C BCA, CMP, 45408-6 #### [facility] ([id number]) [address] [place] [address] CO2 [Moles/Vol] 25 mmol/L Normal 22-32 [facility] Comment on above: Performed By: #### C BCA, CMP, 81031-8 #### [facility] ([id number]) [address] [place] [address] Creatinine [Mass/Vol] 0.72 mg/dL Normal 0.60-1.30 [facility] Comment on above: Result Comment: METH OD TRACEABLE TO IDMS STANDARD Performed By: #### C ZACHARY, CMP, 83725-0 #### [facility] ([id number]) [address] [place] [address] eGFR (CKD-EPI) NON-RACE DEPENDENT >90 Normal >59 [facility] Comment on above: Result Comment: Reported eGFR is based on the CKD-EPI 2020 equation that does not use a race coefficient. Performed By: #### C ZACHARY, CMP, 88421-1 #### [facility] ([id number]) [address] [place] [address] Glucose [Mass/Vol] 175 mg/dL High 65-99 [facility] Comment on above: Performed By: #### C ZACHARY, CMP, 02748-9 #### [facility] ([id number]) [address] [place] [address] Potassium [Moles/Vol] 4.2 mmol/L Normal 3.5-5.0 [facility] Comment on above: Result Comment: SPEC IMEN HEMOLYZED, RESULTS INCREASED MODERATELY HEMOLYZED Performed By: #### C ZACHARY, CMP, 55494-1 #### [facility] ([id number]) [address] [place] [address] Protein [Mass/Vol] 5.6 g/dL Low 6.0-8.0 [facility] Comment on above: Performed By: #### C ZACHARY, CMP, 18858-1 #### [facility] ([id number]) [address], [address] [place] [address] Sodium [Moles/Vol] 143 mmol/L Normal 134-146 [facility] Comment on above: Performed By: #### Thais SHARMA, CMP, 84908-7 #### [facility] ([id number]) [address], [address] [place] [address] Urea nitrogen [Mass/Vol] 41 mg/dL High 5-27 [facility] Comment on above: Performed By: #### Thais SHARMA, CMP, 40866-9 #### [facility] ([id number]) [address] [place] [address] Glucose Glucometer (BldC) [M ass/Vol]on 04-11-2024 Glucose [Mass/Vol] 254 mg/dL High 65-99 [facility] Glucose [Mass/Vol] 282 mg/dL High 65-99 [facility] Glucose [Mass/Vol] 213 mg/dL High 65-99 [facility] Glucose [Mass/Vol] 236 mg/dL High 65-99 [facility] Glucose [Mass/Vol] 192 mg/dL High 65-99 [facility] Glucose [Mass/Vol] 187 mg/dL High 65-99 [facility] aPTT Coag (PPP) [Time]on aPTT Coag (Bld) [Time] 29 s Normal 26-37 Pr [facility] Comment on above: Performed By: #### C ZACHARY, CMP, 87777-1 #### [facility] ([id number]) [address], [address] [place] [address] CBC AND AUTO DIFFon 04-10-20 ABSOLUTE BASOPHIL 0.0 X10E9/L Normal 0.0-0.2 [facility] Comment on above: Performed By: #### C BCA, CMP #### [facility] ([id number]) [address], [address] [place] [address] ABSOLUTE NEUTROPHIL 6.1 X10E9/L Normal 1.5-6.[address] [facility] Comment on above: Performed By: #### C BCA, CMP #### [facility] ([id number]) [address], [address] [place] [address] Basophils/100 WBC (Bld) 0.3 % Normal P [facility] Comment on above: Performed By: #### C BCA, CMP #### [facility] ([id number]) [address], [address] [place] [address] Eosinophils (Bld) [#/Vol] 0.0 10*3/uL Normal 0.0-0.4 [facility] Comment on above: Performed By: #### C BCA, CMP #### [facility] ([id number]) [address], [address] [place] [address] Eosinophils/100 WBC (Bld) 0.1 % Normal [facility] Comment on above: Performed By: #### C BCA, CMP #### [facility] ([id number]) [address], [address] [place] [address] Erythrocyte distribution width (RBC) [Ratio] 14.3 % Normal 11.5-15.0 [facility] Comment on above: Performed By: #### C BCA, CMP #### [facility] ([id number]) [address], [address] [place] [address] Hematocrit (Bld) [Volume fraction] 22.7 % Low 39-49 [facility] Comment on above: Performed By: #### C BCA, CMP #### [facility] ([id number]) [address], [address] [place] [address] Hemoglobin (Bld) [Mass/Vol] 7.9 g/dL Low 13.0-17.0 [facility] Comment on above: Performed By: #### C BCA, CMP #### [facility] ([id number]) [address], [address] [place] [address] Lymphocytes (Bld) [#/Vol] 1.1 10*3/uL Normal 1.0-3.5 [facility] Comment on above: Performed By: #### C BCA, CMP #### [facility] ([id number]) [address], [address] [place] [address] Lymphocytes/100 WBC (Bld) 14.5 % Normal [facility] Comment on above: Performed By: #### C BCA, CMP #### [facility] ([id number]) [address], [address] [place] [address] MCH (RBC) [Entitic mass] 31.2 pg Normal 27-34 [facility] Comment on above: Performed By: #### C BCA, CMP #### [facility] ([id number]) [address], [address] [place] [address] MCHC (RBC) [Mass/Vol] 35.1 g/dL Normal 32-36 [facility] Comment on above: Performed By: #### C BCA, CMP #### [facility] ([id number]) [address], [address] [place] [address] MCV (RBC) [Entitic vol] 89 fL Normal 80-100 P [facility] Comment on above: Performed By: #### C ZACHARY, CMP #### [facility] ([id number]) [address], [address] [place] [address] Monocytes (Bld) [#/Vol] 0.3 10*3/uL Normal 0-0.9 [facility] Comment on above: Performed By: #### C ZACHARY, CMP #### [facility] ([id number]) [address], [address] [place] [address] Monocytes/100 WBC (Bld) 4.3 % Normal [facility] Comment on above: Performed By: #### C ZACHARY, CMP #### [facility] ([id number]) [address], [address] [place] [address] Neutrophils/100 WBC (Bld) 80.8 % Normal [facility] Comment on above: Performed By: #### C ZACHARY, CMP #### [facility] ([id number]) [address], [address] [place] [address] Platelet mean volume (Bld) [Entitic vol] 7.2 fL Normal 7-12 [facility] Comment on above: Performed By: #### C BCA, CMP #### [facility] ([id number]) [address], [address] [place] [address] Platelets (Bld) [#/Vol] 285 10*3/uL Normal 150-450 [facility] Comment on above: Performed By: #### C BCA, CMP #### [facility] ([id number]) [address], [address] [place] [address] RBC COUNT 2.55 X10E12/L Low 4.10-5.70 [facility] Comment on above: Performed By: #### C BCA, CMP #### [facility] ([id number]) [address], [address] [place] [address] WBC (Bld) [#/Vol] 7.6 10*3/uL Normal 4.0-11.0 [facility] Comment on above: Performed By: #### C BCA, CMP #### [facility] ([id number]) [address], [address] [place] [address] ABSOLUTE BASOPHIL 0.0 X10E9/L Normal 0.0-0.2 [facility] Comment on above: Performed By: #### P INR, 38281-2, 93392-9, CBCA, 31975-1, CMP, 4548-4, 6873-4 #### [facility] ([id number]) [address] [place] [address] #### HA1C #### [facility] ([id number]) [address], [address] [place] [address] ABSOLUTE NEUTROPHIL 6.7 X10E9/L High 1.5-6.6 [facility] Comment on above: Performed By: #### P INR, 78525-0, 74214-5, CBCA, 16532-9, CMP, 4548-4, 6873-4 #### [facility] ([id number]) [address] [place] [address] #### HA1C #### [facility] ([id number]) [address], [address] [place] [address] Basophils/100 WBC (Bld) 0.3 % Normal P [facility] Comment on above: Performed By: #### P INR, 02423-8, 96441-6, CBCA, 97194-1, CMP, 4548-4, 6873-4 #### [facility] ([id number]) [address] [place] [address]47[address] #### HA1C #### [facility] ([id number]) [address], [address] [place] [address] Eosinophils (Bld) [#/Vol] 0.0 10*3/uL Normal 0.0-0.4 [facility] Comment on above: Performed By: #### P INR, 53777-7, 24987-4, CBCA, 94207-1, CMP, 4548-4, 6873-4 #### [facility] ([id number]) [address] [place] [address] #### HA1C #### [facility] ([id number]) [address] [facility] [address], [address] [place] [address] Eosinophils/100 WBC (Bld) 0.1 % Normal [facility] Comment on above: Performed By: #### P INR, 19859-8, 04546-9, CBCA, 41889-5, CMP, 4548-4, 6873-4 #### [facility] ([id number]) [address] [place] [address] #### HA1C #### [facility] ([id number]) [address] [facility] [address], [address] [place] [address] Erythrocyte distribution width (RBC) [Ratio] 14.3 % Normal 11.5-15.0 [facility] Comment on above: Performed By: #### P INR, 33951-9, 60456-7, CBCA, 09920-5, CMP, 4548-4, 6873-4 #### [facility] ([id number]) [address] [place] [address] 91791 #### HA1C #### [facility] ([id number]) [address], [address] [place] [address] Hematocrit (Bld) [Volume fraction] 25.1 % Low 39-49 [facility] Comment on above: Performed By: #### P INR, 88284-3, 01651-9, CBCA, 11064-5, CMP, 4548-4, 6873-4 #### [facility] ([id number]) [address] [place] [address] 29247 #### HA1C #### [facility] ([id number]) [address], [address] [place] [address] Hemoglobin (Bld) [Mass/Vol] 8.7 g/dL Low 13.0-17.0 [facility] Comment on above: Performed By: #### P INR, 40835-7, 30936-1, CBCA, 18538-0, CMP, 4548-4, 6873-4 #### [facility] ([id number]) [address] [place] [address] 79622 #### HA1C #### [facility] ([id number]) [address], [address] [place] [address] Lymphocytes (Bld) [#/Vol] 1.3 10*3/uL Normal 1.0-3.5 [facility] Comment on above: Performed By: #### P INR, 17015-2, 71047-3, CBCA, 02232-3, CMP, 4548-4, 6873-4 #### [facility] ([id number]) [address] [place] [address] 59338 #### HA1C #### [facility] ([id number]) [address], [address] [place] [address] Lymphocytes/100 WBC (Bld) 15.7 % Normal [facility] Comment on above: Performed By: #### P INR, 64446-1, 66865-0, CBCA, 59985-3, CMP, 4548-4, 6873-4 #### [facility] ([id number]) [address] [place] [address] 55805 #### HA1C #### [facility] ([id number]) [address] [address] [place] [address] MCH (RBC) [Entitic mass] 30.6 pg Normal 27-34 [facility] Comment on above: Performed By: #### P INR, 03325-1, 73803-5, CBCA, 19488-0, CMP, 4548-4, 6873-4 #### [facility] ([id number]) [address] [place] [address] 42034 #### HA1C #### [facility] ([id number]) [address] [address] [place] [address] MCHC (RBC) [Mass/Vol] 34.8 g/dL Normal 32-36 [facility] Comment on above: Performed By: #### P INR, 96179-5, 44191-8, CBCA, 35853-4, CMP, 4548-4, 6873-4 #### [facility] ([id number]) [address] [place] [address] 98920 #### HA1C #### [facility] ([id number]) [address] [facility] [address], [address] [place] [address] MCV (RBC) [Entitic vol] 88 fL Normal 80-100 [facility] Comment on above: Performed By: #### P INR, 92152-1, 20134-3, CBCA, 87285-7, CMP, 4548-4, 6873-4 #### [facility] ([id number]) [address] [place] [address] 68764 #### HA1C #### [facility] ([id number]) [address], [address] [place] [address] Monocytes (Bld) [#/Vol] 0.4 10*3/uL Normal 0-0.9 [facility] Comment on above: Performed By: #### P INR, 11913-9, 45439-0, CBCA, 82971-0, CMP, 4548-4, 6873-4 #### [facility] ([id number]) [address] [place] [address] 76582 #### HA1C #### [facility] ([id number]) [address] [facility] [address] [place] [address] Monocytes/100 WBC (Bld) 5.0 % Normal P [facility] Comment on above: Performed By: #### P INR, 16461-6, 80599-4, CBCA, 30390-1, CMP, 4548-4, 6873-4 #### [facility] ([id number]) [address] [place] [address] 17470 #### HA1C #### [facility] ([id number]) [address], [address] [place] [address] Neutrophils/100 WBC (Bld) 78.9 % Normal [facility] Comment on above: Performed By: #### P INR, 98808-1, 97364-3, CBCA, 47633-0, CMP, 4548-4, 6873-4 #### [facility] ([id number]) [address] [place] [address] 89323 #### HA1C #### [facility] ([id number]) [address], [address] [place] [address] Platelet mean volume (Bld) [Entitic vol] 7.4 fL Normal 7-12 [facility] Comment on above: Performed By: #### P INR, 90918-6, 27602-1, CBCA, 30517-4, CMP, 4548-4, 6873-4 #### [facility] ([id number]) [address] [place] [address] 94925 #### HA1C #### [facility] ([id number]) [address] [facility] [address] [place] [address] Platelets (Bld) [#/Vol] 285 10*3/uL Normal 150-450 [facility] Comment on above: Performed By: #### P INR, 48119-6, 80116-7, CBCA, 89949-5, CMP, 4548-4, 6873-4 #### [facility] ([id number]) [address] [place] [address] 14379 #### HA1C #### [facility] ([id number]) [address] [facility], [address] [place] [address] RBC COUNT 2.86 X10E12/L Low 4.10-5.70 [facility] Comment on above: Performed By: #### P INR, 77795-8, 19958-2, CBCA, 85615-2, CMP, 4548-4, 6873-4 #### [facility] ([id number]) [address] [place] [address] 14258 #### HA1C #### [facility] ([id number]) [address] [facility] [address] [place] [address] WBC (Bld) [#/Vol] 8.5 10*3/uL Normal 4.0-11.0 [facility] Comment on above: Performed By: #### P INR, 22858-3, 69129-6, CBCA, 51742-4, CMP, 4548-4, 6873-4 #### [facility] ([id number]) [address] [place], [place] [address] [address] #### HA1C #### [facility] ([id number]) [address], [address] [place] [address] COMPREHENSIVE METABOLIC PANE [place] 04-10-2024 Albumin [Mass/Vol] 3.9 g/dL Normal 3.2-5.3 [facility] Comment on above: Performed By: #### C BCA, CMP #### [facility] ([id number]) [address] [place] [address] ALP [Catalytic activity/Vol] 54 U/L Normal 39-130 [facility] Comment on above: Performed By: #### C BCA, CMP #### [facility] ([id number]) [address], [address] [place] [address] ALT [Catalytic activity/Vol] 8 U/L Normal 0-40 [facility] Comment on above: Performed By: #### C BCA, CMP #### [facility] ([id number]) [address], [address] [place] [address] Anion gap [Moles/Vol] 9 mmol/L Normal 5-15 [facility] Comment on above: Performed By: #### C BCA, CMP #### [facility] ([id number]) [address], [address] [place] [address] AST [Catalytic activity/Vol] 10 U/L Normal 0-41 [facility] Comment on above: Performed By: #### C BCA, CMP #### [facility] ([id number]) [address], [address] [place] [address] Bilirubin [Mass/Vol] 0.6 mg/dL Normal 0.3-1.[address] [facility] Comment on above: Performed By: #### C BCA, CMP #### [facility] ([id number]) [address], [address] [place] [address] Calcium [Mass/Vol] 8.8 mg/dL Normal 8.5-10.5 [facility] Comment on above: Performed By: #### C BCA, CMP #### [facility] ([id number]) [address], [address] [place] [address] Chloride [Moles/Vol] 109 mmol/L Normal 98-[address] [facility] Comment on above: Performed By: #### C BCA, CMP #### [facility] ([id number]) [address] [address] [place] [address] CO2 [Moles/Vol] 23 mmol/L Normal 22-32 [facility] Comment on above: Performed By: #### C BCA, CMP #### [facility] ([id number]) [address], [address] [place] [address] Creatinine [Mass/Vol] 0.83 mg/dL Normal 0.60-1.30 [facility] Comment on above: Result Comment: METH OD TRACEABLE TO IDMS STANDARD Performed By: #### C BCA, CMP #### [facility] ([id number]) [address] [address] [place] [address] eGFR (CKD-EPI) NON-RACE DEPENDENT >90 Normal >59 [facility] Comment on above: Result Comment: Reported eGFR is based on the CKD-EPI 2020 equation that does not use a race coefficient. Performed By: #### C BCA, CMP #### [facility] ([id number]) [address], [address] [place] [address] Glucose [Mass/Vol] 193 mg/dL High 65-99 [facility] Comment on above: Performed By: #### C BCA, CMP #### [facility] ([id number]) [address] [place] [address] Potassium [Moles/Vol] 4.1 mmol/L Normal 3.5-5.0 [facility] Comment on above: Performed By: #### C BCA, CMP #### [facility] ([id number]) [address], [address] [place] [address] Protein [Mass/Vol] 5.7 g/dL Low 6.0-8.0 [facility] Comment on above: Performed By: #### C BCA, CMP #### [facility] ([id number]) [address], [address] [place] [address] Sodium [Moles/Vol] 141 mmol/L Normal 134-146 [facility] Comment on above: Performed By: #### C BCA, CMP #### [facility] ([id number]) [address], [address] [place] [address] Urea nitrogen [Mass/Vol] 54 mg/dL High 5-27 [facility] Comment on above: Performed By: #### C BCA, CMP #### [facility] ([id number]) [address] [place] [address] Albumin [Mass/Vol] 3.8 g/dL Normal 3.2-5.3 [facility] Comment on above: Performed By: #### P INR, 05538-1, 71610-4, CBCA, 92340-9, CMP, 4548-4, 6873-4 #### [facility] ([id number]) [address] [place] [address] 56064 #### HA1C #### [facility] ([id number]) [address] [place] [address] ALP [Catalytic activity/Vol] 55 U/L Normal 39-130 [facility] Comment on above: Performed By: #### P INR, 98726-7, 24014-9, CBCA, 18325-8, CMP, 4548-4, 6873-4 #### [facility] ([id number]) [address] [place] [address] 12400 #### HA1C #### [facility] ([id number]) [address], [address] [place] [address] ALT [Catalytic activity/Vol] 13 U/L Normal 0-40 [facility] Comment on above: Performed By: #### P INR, 02773-2, 78896-3, CBCA, 43593-4, CMP, 4548-4, 6873-4 #### [facility] ([id number]) [address] [place] [address] 68619 #### HA1C #### [facility] ([id number]) [address] [address] [place] [address] Anion gap [Moles/Vol] 11 mmol/L Normal 5-15 [facility] Comment on above: Performed By: #### P INR, 00826-3, 77614-8, CBCA, 29501-3, CMP, 4548-4, 6873-4 #### [facility] ([id number]) [address] [place] [address] 45140 #### HA1C #### [facility] ([id number]) [address] [place] [address] AST [Catalytic activity/Vol] 14 U/L Normal 0-41 [facility] Comment on above: Performed By: #### P INR, 39378-4, 97550-8, CBCA, 02640-4, CMP, 4548-4, 6873-4 #### [facility] ([id number]) [address] [place] [address] 67937 #### HA1C #### [facility] ([id number]) [address], [address] [place] [address] Bilirubin [Mass/Vol] 0.4 mg/dL Normal 0.3-1.2 [facility] Comment on above: Performed By: #### P INR, 83579-4, 37919-3, CBCA, 63763-1, CMP, 4548-4, 6873-4 #### [facility] ([id number]) [address] [place] [address] 55402 #### HA1C #### [facility] ([id number]) [address] [place] [address] Calcium [Mass/Vol] 8.6 mg/dL Normal 8.5-10.5 [facility] Comment on above: Performed By: #### P INR, 13963-9, 42392-4, CBCA, 13438-3, CMP, 4548-4, 6873-4 #### [facility] ([id number]) [address] [place] [address] 43580 #### HA1C #### [facility] ([id number]) [address] [place] [address] Chloride [Moles/Vol] 106 mmol/L Normal 98-109 [facility] Comment on above: Performed By: #### P INR, 73834-7, 39171-4, CBCA, 77151-3, CMP, 4548-4, 6873-4 #### [facility] ([id number]) [address] [place] [address] 10071 #### HA1C #### [facility] ([id number]) [address] [place] [address] CO2 [Moles/Vol] 20 mmol/L Low 22-32 [facility] Comment on above: Performed By: #### P INR, 60537-5, 55485-8, CBCA, 65944-5, CMP, 4548-4, 6873-4 #### [facility] ([id number]) [address] [place] [address] 35356 #### HA1C #### [facility] ([id number]) [address] [facility] [address] [place] [address] Creatinine [Mass/Vol] 1.02 mg/dL Normal 0.70-1.20 [facility] Comment on above: Result Comment: METH OD TRACEABLE TO IDMS STANDARD Performed By: #### P INR, 93860-0, 02526-0, CBCA, 73038-4, CMP, 4548-4, 6873-4 #### [facility] ([id number]) [address] [place] [address] 81780 #### HA1C #### [facility] ([id number]) [address] [address] [address] [place] [address] GFR/1.73 sq M.predicted among non-blacks MDRD (S/P/Bld) [Vol rate/Area] 79 mL/min/{1.73_m2} Normal >59 [facility] Comment on above: Result Comment: Reported eGFR is based on the CKD-EPI 2020 equation that does not use a race coefficient. Performed By: #### P INR, 69086-6, 12707-3, CBCA, 85874-0, CMP, 4548-4, 6873-4 #### [facility] ([id number]) [address] [place] [address] 85215 #### HA1C #### [facility] ([id number]) [address] [address] [place] [address] Glucose [Mass/Vol] 195 mg/dL High 65-99 [facility] Comment on above: Performed By: #### P INR, 98361-9, 67285-1, CBCA, 35331-1, CMP, 4548-4, 6873-4 #### [facility] ([id number]) [address] [place] [address] #### HA1C #### [facility] ([id number]) [address], [address] [place] [address] Potassium [Moles/Vol] 4.1 mmol/L Normal 3.5-5.0 [facility] Comment on above: Performed By: #### P INR, 12502-3, 69505-4, CBCA, 04177-3, CMP, 4548-4, 6873-4 #### [facility] ([id number]) [address] [place] [address] #### HA1C #### [facility] ([id number]) [address], [address] [place] [address] Protein [Mass/Vol] 6.1 g/dL Normal 6.0-8.0 [facility] Comment on above: Performed By: #### P INR, 75583-4, 72617-0, CBCA, 55548-3, CMP, 4548-4, 6873-4 #### [facility] ([id number]) [address] [place] [address] #### HA1C #### [facility] ([id number]) [address], [address] [place] [address] Sodium [Moles/Vol] 137 mmol/L Normal 134-146 [facility] Comment on above: Performed By: #### P INR, 32122-8, 95545-9, CBCA, 57526-3, CMP, 4548-4, 6873-4 #### [facility] ([id number]) [address] [place] [address] #### HA1C #### [facility] ([id number]) [address], [address] [place] [address] Urea nitrogen [Mass/Vol] 86 mg/dL High 5-27 [facility] Comment on above: Performed By: #### P INR, 38030-3, 89292-6, CBCA, 08624-5, CMP, 4548-4, 6873-4 #### [facility] ([id number]) [address], [place] [address] #### HA1C #### [facility] ([id number]) [address], [address] [place] [address] CT BRAIN WO CONTon [address] CT BRAIN WO CONT CT BRAIN WO [...] Jaramillo MD on 04/10/2024 2:20 PM Normal [facility] CT CTA CAROTIDon 04-10-2024 CT CTA [...] supervision. Automated exposure control utilized. The [place] Symptomatic Carotid Endarterectomy Trial (NASCET) method for [...] Beatty MD on 04/10/2024 3:14 PM Normal [facility] CT CTA HEADon 04-10-2024 CT CTA [...] Beatty MD on 04/10/2024 2:51 PM Normal [facility] Glucose Glucometer (BldC) [M ass/Vol]on 04-10-2024 Glucose [Mass/Vol] 188 mg/dL High 65-99 [facility] Glucose [Mass/Vol] 233 mg/dL High 65-99 [facility] Glucose [Mass/Vol] 232 mg/dL High 65-99 [facility] Glucose [Mass/Vol] 232 mg/dL High 65-99 [facility] Glucose [Mass/Vol] 205 mg/dL High 65-99 [facility] MAGNESIUMon 04-10-2024 Magnesium [Mass/Vol] 2.3 mg/dL Normal 1.8-2.6 [facility] Comment on above: Performed By: #### P INR, 06719-3, 95489-6, CBCA, 80499-8, CMP, 4548-4, 6873-4 #### [facility] ([id number]) [address] [place] [address], [place] [address] #### HA1C #### [facility] ([id number]) [address], [address] [place] [address] PHOSPHORUSon 04-10-2024 Phosphate [Mass/Vol] 4.2 mg/dL Normal 2.4-4.9 [facility] Comment on above: Performed By: #### P INR, 66350-8, 19669-9, CBCA, 46252-5, CMP, 4548-4, 6873-4 #### [facility] ([id number]) [address] [place] [address] 23808 #### HA1C #### [facility] ([id number]) [address] [facility], [address] [place] [address] URINALYSISon 04-10-2024 Bilirubin Ql (U) Negative Normal NEG [facility] Comment on above: Performed By: #### U A #### [facility] ([id number]) [address] [facility], [address] [place] [address] BLOOD/HGB Negative Normal NEG [facility] Comment on above: Performed By: #### U A #### [facility] ([id number]) [address] [facility], [address] [place] [address] Color (U) YELLOW Normal YELLOW [facility] Comment on above: Performed By: #### U A #### [facility] ([id number]) [address], [address] [place] [address] Glucose Ql (U) Negative Normal NEG [facility] Comment on above: Performed By: #### U A #### [facility] ([id number]) [address], [address] [place] [address] Ketones Ql (U) Negative Normal NEG [facility] Comment on above: Performed By: #### U A #### [facility] ([id number]) [address], [address] [place] [address] Leukocyte esterase Test strip Ql (U) Negative Normal NEG [facility] Comment on above: Performed By: #### U A #### [facility] ([id number]) [address], [address] [place] [address] Nitrite Ql (U) Negative Normal NEG [facility] Comment on above: Performed By: #### U A #### [facility] ([id number]) [address], [address] [place] [address] pH (U) 5.5 [pH] Normal 5.0-8.5 [facility] Comment on above: Performed By: #### U A #### [facility] ([id number]) [address], [address] [place] [address] Protein Ql (U) Negative Normal NEG [facility] Comment on above: Performed By: #### U A #### [facility] ([id number]) [address], [address] [place] [address] Specific gravity (U) [Rel density] 1.039 High 1.003-1.035 [facility] Comment on above: Performed By: #### U A #### [facility] ([id number]) [address], [address] [place] [address] TURBIDITY CLEAR Normal CLEAR [facility] Comment on above: Performed By: #### U A #### [facility] ([id number]) [address] [address] [place] [address] Urinalysis dipstick W Reflex Microscopic panel (U) URINE RECEIVED WITHOUT PRESERVATIVE-DELAYS IN TRANSPORT MAY AFFECT RESULTS.INTERPRET WITH CAUTION AND CLINICAL CORRELATION IS RECOMMENDED. Normal [facility] Comment on above: Performed By: #### U A #### [facility] ([id number]) [address], [facility] [address] [place] [address] Urobilinogen (U) [Mass/Vol] mg/dL Normal <1.1 [facility] Comment on above: Performed By: #### U A #### [facility] ([id number]) [address] [address] BASIC METABOLIC PANLon 04-09 Anion gap [Moles/Vol] 12 mmol/L Normal 5-15 [facility] Comment on above: Performed By: #### P INR, 00440-0, 92100-9, CBCA, 64793-2, CMP, 4548-4, 6873-4 #### [facility] ([id number]) [address] [place] [address] 44566 #### HA1C #### [facility] ([id number]) [address] [address] Calcium [Mass/Vol] 8.4 mg/dL Low 8.5-10.5 [facility] Comment on above: Performed By: #### P INR, 13325-5, 93024-7, CBCA, 18271-2, CMP, 4548-4, 6873-4 #### [facility] ([id number]) [address] [place] [address] 46758 #### HA1C #### [facility] ([id number]) [address] [address] [place] [address] Chloride [Moles/Vol] 102 mmol/L Normal 98-109 [facility] Comment on above: Performed By: #### P INR, 26849-1, 20839-5, CBCA, 20249-3, CMP, 4548-4, 6873-4 #### [facility] ([id number]) [address] [place] [address]1872 #### HA1C #### [facility] ([id number]) [address], [address] [place] [address] CO2 [Moles/Vol] 17 mmol/L Low 22-32 [facility] Comment on above: Performed By: #### P INR, 37247-2, 26367-9, CBCA, 04267-5, CMP, 4548-4, 6873-4 #### [facility] ([id number]) [address] [place] [address] 13136 #### HA1C #### [facility] ([id number]) [address], [address] [place] [address] Creatinine [Mass/Vol] 1.49 mg/dL High 0.70-1.20 [facility] Comment on above: Result Comment: METH OD TRACEABLE TO IDMS STANDARD Performed By: #### P INR, 18933-2, 12222-9, CBCA, 39139-2, CMP, 4548-4, 6873-4 #### [facility] ([id number]) [address] [place] [address] 48126 #### HA1C #### [facility] ([id number]) [address], [address] [place] [address] GFR/1.73 sq M.predicted among non-blacks MDRD (S/P/Bld) [Vol rate/Area] 50 mL/min/{1.73_m2} Low >59 [facility] Comment on above: Result Comment: Reported eGFR is based on the CKD-EPI 2020 equation that does not use a race coefficient. Performed By: #### P INR, 19233-2, 24078-5, CBCA, 61564-1, CMP, 4548-4, 6873-4 #### [facility] ([id number]) [address] [place] [address] 94104 #### HA1C #### [facility] ([id number]) [address], [address] [place] [address] Glucose [Mass/Vol] 328 mg/dL High 65-99 [facility] Comment on above: Performed By: #### P INR, 82463-8, 31528-6, CBCA, 34935-7, CMP, 4548-4, 6873-4 #### [facility] ([id number]) [address] [place] [address] 18388 #### HA1C #### [facility] ([id number]) [address], [address] [place] [address] Potassium [Moles/Vol] 4.7 mmol/L Normal 3.5-5.0 [facility] Comment on above: Performed By: #### P INR, 94590-5, 10773-7, CBCA, 17352-2, CMP, 4548-4, 6873-4 #### [facility] ([id number]) [address] [place] [address] 72863 #### HA1C #### [facility] ([id number]) [address], [address] [place] [address] Sodium [Moles/Vol] 131 mmol/L Low 134-146 [facility] Comment on above: Performed By: #### P INR, 37514-7, 62054-9, CBCA, 01854-8, CMP, 4548-4, 6873-4 #### [facility] ([id number]) [address] [place] [address] 61585 #### HA1C #### [facility] ([id number]) [address] [facility], [address] [place] [address] Urea nitrogen [Mass/Vol] 112 mg/dL High 5-27 [facility] Comment on above: Performed By: #### P INR, 62409-7, 35544-4, CBCA, 45054-6, CMP, 4548-4, 6873-4 #### [facility] ([id number]) [address] [place] [address] 63850 #### HA1C #### [facility] ([id number]) [address] [facility], [address] [place] [address] CBC AND AUTO DIFFon 04-09-20 24 ABSOLUTE BASOPHIL 0.0 X10E9/L Normal 0.0-0.2 [facility] Comment on above: Performed By: #### P INR, 05070-6, 27862-2, CBCA, 42356-9, CMP, 4548-4, 6873-4 #### [facility] ([id number]) [address] [place] [address] 94485 #### HA1C #### [facility] ([id number]) [address] [facility], [address] [place] [address] ABSOLUTE NEUTROPHIL 8.5 X10E9/L High 1.5-6.6 [facility] Comment on above: Performed By: #### P INR, 68426-8, 07632-4, CBCA, 46025-0, CMP, 4548-4, 6873-4 #### [facility] ([id number]) [address] [place] [address] 47373 #### HA1C #### [facility] ([id number]) [address] [facility], [address] [place] [address] Basophils/100 WBC (Bld) 0.4 % Normal [facility] Comment on above: Performed By: #### P INR, 01042-0, 60002-8, CBCA, 14720-5, CMP, 4548-4, 6873-4 #### [facility] ([id number]) [address] [place] [address] 07671 #### HA1C #### [facility] ([id number]) [address], [address] [place] [address] Eosinophils (Bld) [#/Vol] 0.0 10*3/uL Normal 0.0-0.4 [facility] Comment on above: Performed By: #### P INR, 76299-5, 72976-6, CBCA, 88972-9, CMP, 4548-4, 6873-4 #### [facility] ([id number]) [address] [place] [address] 35114 #### HA1C #### [facility] ([id number]) [address], [address] [place] [address] Eosinophils/100 WBC (Bld) 0.1 % Normal [facility] Comment on above: Performed By: #### P INR, 99357-6, 71551-4, CBCA, 72138-9, CMP, 4548-4, 6873-4 #### [facility] ([id number]) [address] [place] [address] 13514 #### HA1C #### [facility] ([id number]) [address], [address] [place] [address] Erythrocyte distribution width (RBC) [Ratio] 13.9 % Normal 11.5-15.0 [facility] Comment on above: Performed By: #### P INR, 05616-7, 35277-8, CBCA, 70828-6, CMP, 4548-4, 6873-4 #### [facility] ([id number]) [address] [place] [address] 94520 #### HA1C #### [facility] ([id number]) [address], [address] [place] [address] Hematocrit (Bld) [Volume fraction] 28.3 % Low 39-49 [facility] Comment on above: Performed By: #### P INR, 11434-7, 12668-0, CBCA, 20916-7, CMP, 4548-4, 6873-4 #### [facility] ([id number]) [address] [place] [address] 91014 #### HA1C #### [facility] ([id number]) [address], [address] [place] [address] Hemoglobin (Bld) [Mass/Vol] 9.8 g/dL Low 13.0-17.0 [facility] Comment on above: Performed By: #### P INR, 65401-4, 28295-6, CBCA, 12186-5, CMP, 4548-4, 6873-4 #### [facility] ([id number]) [address] [place] [address] 53933 #### HA1C #### [facility] ([id number]) [address], [address] [place] [address] Lymphocytes (Bld) [#/Vol] 0.9 10*3/uL Low 1.0-3.5 [facility] Comment on above: Performed By: #### P INR, 27917-2, 80876-6, CBCA, 61592-5, CMP, 4548-4, 6873-4 #### [facility] ([id number]) [address] [place] [address] 13563 #### HA1C #### [facility] ([id number]) [address], [address] [place] [address] Lymphocytes/100 WBC (Bld) 9.0 % Normal [facility] Comment on above: Performed By: #### P INR, 12452-0, 40702-3, CBCA, 96810-2, CMP, 4548-4, 6873-4 #### [facility] ([id number]) [address] [place] [address] 99437 #### HA1C #### [facility] ([id number]) [address], [address] [place] [address] MCH (RBC) [Entitic mass] 30.9 pg Normal 27-34 [facility] Comment on above: Performed By: #### P INR, 54193-5, 39483-0, CBCA, 61050-8, CMP, 4548-4, 6873-4 #### [facility] ([id number]) [address] [place] [address] 70700 #### HA1C #### [facility] ([id number]) [address] [facility], [address] [place] [address] MCHC (RBC) [Mass/Vol] 34.6 g/dL Normal 32-36 [facility] Comment on above: Performed By: #### P INR, 54593-4, 84620-2, CBCA, 60310-6, CMP, 4548-4, 6873-4 #### [facility] ([id number]) [address] [place] [address] 90056 #### HA1C #### [facility] ([id number]) [address], [address] [place] [address] MCV (RBC) [Entitic vol] 89 fL Normal 80-100 P [facility] Comment on above: Performed By: #### P INR, 74310-2, 80319-8, CBCA, 65072-3, CMP, 4548-4, 6873-4 #### [facility] ([id number]) [address] [place] [address] 26044 #### HA1C #### [facility] ([id number]) [address], [address] [place] [address] Monocytes (Bld) [#/Vol] 0.3 10*3/uL Normal 0-0.9 [facility] Comment on above: Performed By: #### P INR, 95817-1, 18149-1, CBCA, 29418-5, CMP, 4548-4, 6873-4 #### [facility] ([id number]) [address] [place] [address] 34910 #### HA1C #### [facility] ([id number]) [address] [facility], [address] [place] [address] Monocytes/100 WBC (Bld) 3.2 % Normal [facility] Comment on above: Performed By: #### P INR, 29346-7, 72496-5, CBCA, 40387-3, CMP, 4548-4, 6873-4 #### [facility] ([id number]) [address] [place] [address] 92945 #### HA1C #### [facility] ([id number]) [address] [facility], [address] [place] [address] Neutrophils/100 WBC (Bld) 87.3 % Normal [facility] Comment on above: Performed By: #### P INR, 03571-1, 94691-1, CBCA, 27228-8, CMP, 4548-4, 6873-4 #### [facility] ([id number]) [address] [place] [address] 86258 #### HA1C #### [facility] ([id number]) [address], [address] [place] [address] Platelet mean volume (Bld) [Entitic vol] 8.1 fL Normal 7-12 [facility] Comment on above: Performed By: #### P INR, 91348-6, 94155-1, CBCA, 15242-5, CMP, 4548-4, 6873-4 #### [facility] ([id number]) [address] [place] [address] 89341 #### HA1C #### [facility] ([id number]) [address], [address] [place] [address] Platelets (Bld) [#/Vol] 330 10*3/uL Normal 150-450 [facility] Comment on above: Performed By: #### P INR, 00321-3, 49958-4, CBCA, 14815-3, CMP, 4548-4, 6873-4 #### [facility] ([id number]) [address] [place] [address] 27924 #### HA1C #### [facility] ([id number]) [address], [address] [place] [address] RBC COUNT 3.16 X10E12/L Low 4.10-5.70 [facility] Comment on above: Performed By: #### P INR, 30409-1, 06496-4, CBCA, 59032-8, CMP, 4548-4, 6873-4 #### [facility] ([id number]) [address] [place] [address] 04808 #### HA1C #### [facility] ([id number]) [address], [address] [place] [address] WBC (Bld) [#/Vol] 9.7 10*3/uL Normal 4.0-11.0 [facility] Comment on above: Performed By: #### P INR, 75042-5, 57851-5, CBCA, 38059-0, CMP, 4548-4, 6873-4 #### [facility] ([id number]) [address] [place] [address] 35632 #### HA1C #### [facility] ([id number]) [address] [place] [address] CT BRAIN WO CONT STROKE ALER Ton [...] as low as reasonably achievable. Finalized by Ramy Clay MD on 04/09/2024 8:10 AM Normal [facility] CT CTA CAROTIDon 04-09-2024 CT CTA [...] artery narrowing is assessed using the [place] Symptomatic Carotid Endarterectomy Trial (NASCET) method. Comparison: [...] Kenneth Rothman MD on 04/09/2024 8:34 AM Normal [facility] CT CTA HEADon 04-09-2024 CT CTA HEAD [...] Thomson MD on 04/09/2024 8:39 AM Normal [facility] Glucose Glucometer (BldC) [M ass/Vol]on 04-09-2024 Glucose [Mass/Vol] 190 mg/dL High 65-99 [facility] Glucose [Mass/Vol] 222 mg/dL High 65-99 [facility] Glucose [Mass/Vol] 258 mg/dL High 65-99 [facility] HGB A1C (GLYCO-HGB)on 2023 Glucose [Mass/Vol] 169 mg/dL Normal [facility] Comment on above: Performed By: #### P INR, 28367-0, 70722-9, CBCA, 85422-9, CMP, 4548-4, 6873-4 #### [facility] ([id number]) [address] [place] [address] 91233 #### HA1C #### [facility] ([id number]) [address] [place] [address], [address] [place] [address] HbA1c (Bld) [Mass fraction] 7.5 % High 4.4-5.6 [facility] Comment on above: Result Comment: NOTE ADA Guidelines Result HgbA1c Normal : less than 5.7 % Prediabetes : 5.7 % to 6.4 % Diabetes : > 6.4 % Use with caution in patients with abnormal hemoglobin variants as the half-life of red blood cells and in vivo glycation rates are affected. Performed By: #### P INR, 79885-9, 46803-1, CBCA, 17047-0, CMP, 4548-4, 6873-4 #### [facility] ([id number]) [address] [place] [address] 82807 #### HA1C #### [facility] ([id number]) [address] [facility], [address] [place] [address] Lipid 1996 panelon 4 Cholesterol [Mass/Vol] 142 mg/dL Low 150-200 [facility] Comment on above: Performed By: #### P INR, 73992-3, 59459-4, CBCA, 79312-5, CMP, 4548-4, 6873-4 #### [facility] ([id number]) [address] [place] [address] 14763 #### HA1C #### [facility] ([id number]) [address] [place] [address], [address] [place] [address] Cholesterol in HDL [Mass/Vol] 27 mg/dL Low >39 [facility] Comment on above: Result Comment: HDL <40 mg/dL - High Risk HDL > or = 40mg/dL- Desirable HDL >60 mg/dL - Negative Risk Performed By: #### P INR, 65700-4, 77413-0, CBCA, 70719-8, CMP, 4548-4, 6873-4 #### [facility] ([id number]) [address] [place] [address] 29521 #### HA1C #### [facility] ([id number]) [facility], [address] [place] [address] Cholesterol in LDL [Mass/Vol] 76 mg/dL Normal <130 [facility] Comment on above: Result Comment: LDL <100 mg/dL - Desirable LDL >160 mg/dL - High Risk Performed By: #### P INR, 18695-8, 56357-1, CBCA, 84430-7, CMP, 4548-4, 6873-4 #### [facility] ([id number]) [address] [place] [address] 52035 #### HA1C #### [facility] ([id number]) [address], [address] [place] [address] Cholesterol in VLDL [Mass/Vol] 39 mg/dL High 0-30 [facility] Comment on above: Performed By: #### P INR, 34797-8, 46505-9, CBCA, 01877-9, CMP, 4548-4, 6873-4 #### [facility] ([id number]) [address] [place] [address] 12143 #### HA1C #### [facility] ([id number]) [address], [address] [place] [address] CHOLESTEROL:HDL 5.3 High 1.0-5.0 [facility] Comment on above: Performed By: #### P INR, 39939-3, 18140-3, CBCA, 91831-4, CMP, 4548-4, 6873-4 #### [facility] ([id number]) [address] [place] [address] 47919 #### HA1C #### [facility] ([id number]) [address], [address] [place] [address] Triglyceride [Mass/Vol] 196 mg/dL High 27-150 [facility] Comment on above: Performed By: #### P INR, 42982-6, 75702-4, CBCA, 77586-1, CMP, 4548-4, 6873-4 #### [facility] ([id number]) [address] [place] [address] 93040 #### HA1C #### [facility] ([id number]) [address], [address] [place] [address] MR BRAIN WO CONTon 06-14-202 4 MR BRAIN WO CONT MR BRAIN [...] than peripheral volume loss. Bilateral hippocampal atrophy, [id number] in severity. Few scattered foci of T2/FLAIR [...] Emmanuel Pastrana on 04/09/2024 9:55 AM Normal [facility] PHOSPHORUSon 04-09-2024 Phosphate [Mass/Vol] 4.5 mg/dL Normal 2.4-4.9 [facility] Comment on above: Performed By: #### P INR, 65877-5, 67531-2, CBCA, 10099-8, CMP, 4548-4, 6873-4 #### [facility] ([id number]) [address] [place] [address] #### HA1C #### [facility] ([id number]) [address], [address] [place] [address] PROTIME AND INRon 04-09-2024 INR Coag (PPP) [Relative time] 1.2 {INR} High 0.8-1.1 [facility] Comment on above: Performed By: #### P INR, 55134-7, 30067-6, CBCA, 07401-3, CMP, 4548-4, 6873-4 #### [facility] ([id number]) [address] [place] [address] 91144 #### HA1C #### [facility] ([id number]) [address] [facility] [place] [address] PT Coag (PPP) [Time] 14.0 s High 9.8-13.2 [facility] Comment on above: Result Comment: NEW REFERENCE RANGE Performed By: #### P INR, 86006-9, 52315-7, CBCA, 20668-7, CMP, 4548-4, 6873-4 #### [facility] ([id number]) [address] [place] [address] 07094 #### HA1C #### [facility] ([id number]) [address] [facility] [place] [address] Troponin I.cardiac High sens itivity method [Mass/Vol]on 04-09-2024 3 HOUR TROP I, HIGH SENSITIVITY 113 ng/L High <21 [facility] Comment on above: Result Comment: Elevations of hs-Troponin may be due to causes other than myocardial ischemia. Recommend serial hs-Troponin testing be performed. For the initial evaluation and management of chest pain patients, refer to the algorithms linked below. Emergency Patient: [email or web address] Inpatient: [email or web address] &uh=[email or web address] Performed By: #### P INR, 74363-4, 28075-7, CBCA, 91314-9, CMP, 4548-4, 6873-4 #### [facility] ([id number]) [address] [place] [address] #### HA1C #### [facility] ([id number]) [address] [place] [address], [address] [place] [address] 1 HOUR TROP I, HIGH SENSITIVITY 60 ng/L High <21 [facility] Comment on above: Result Comment: Elevations of hs-Troponin may be due to causes other than myocardial ischemia. Recommend serial hs-Troponin testing be performed. For the initial evaluation and management of chest pain patients, refer to the algorithms linked below. Emergency Patient: [email or web address] Inpatient: [email or web address] &[email or web address] Performed By: #### P INR, 82562-0, 40931-5, CBCA, 89298-8, CMP, 4548-4, 6873-4 #### [facility] ([id number]) [address] [place] [address] #### HA1C #### [facility] ([id number]) [address] [place] [address], [address] [place] [address] TROPONIN I, HIGH SENSITIVITY 38 ng/L High <21 [facility] Comment on above: Result Comment: Elevations of hs-Troponin may be due to causes other than myocardial ischemia. Recommend serial hs-Troponin testing be performed. For the initial evaluation and management of chest pain patients, refer to the algorithms linked below. Emergency Patient: [email or web address] Inpatient: [email or web address] &uh=[email or web address] Performed By: #### P INR, 93571-9, 71571-5, CBCA, 84894-0, CMP, 4548-4, 6873-4 #### [facility] ([id number]) [address] [place] [address], [place] [address] #### HA1C #### [facility] ([id number]) [address] [place] [address], [address] [place] [address] XR ANKLE LT MIN 3 VWSon 03-27 [...] Rothman MD on 04/09/2024 9:32 AM Normal [facility] XR KNEE LT 3 VWSon 4 [...] Keyes MD on 04/09/2024 9:29 AM Normal [facility] XR PELVIS 1 OR 2 VWSon [...] Rothman MD on 04/09/2024 9:37 AM Normal [facility] XR WRIST RT MIN 3 VWSon [...] Rothman MD on 04/09/2024 9:40 AM Normal [facility] aPTT Coag (PPP) [Time]on aPTT Coag (Bld) [Time] 24 s Low 26-37 [facility] Comment on above: Result Comment: NEW REFERENCE RANGE Performed By: #### P INR, 57765-4, 64772-4, CBCA, 43145-3, CMP, 4548-4, 6873-4 #### [facility] ([id number]) [address] [place] [address], [place] [address] #### HA1C #### [facility] ([id number]) [address] [place] [address], [address] [place] [address] XR Knee - right 4 Viewson Findings: [...] space and varus deformity. MANUALLY TRANSCRIBED RESULTS [facility] Radiology Study observation (narrative) [facility] BASIC METABOLIC PANLon 11-05 Anion gap [Moles/Vol] 11 mmol/L Normal 5-15 [facility] Comment on above: Performed By: #### P INR, 11200-1, 77664-2, CBCA, 00821-6, CMP, 4548-4, 6873-4 #### [facility] ([id number]) [address] [place] [address] 83622 #### HA1C #### [facility] ([id number]) [address] [facility] [address], [address] [place] [address] Calcium [Mass/Vol] 8.8 mg/dL Normal 8.5-10.5 [facility] Comment on above: Performed By: #### P INR, 75962-8, 91875-5, CBCA, 53740-3, CMP, 4548-4, 6873-4 #### [facility] ([id number]) [address] [place] [address] 62737 #### HA1C #### [facility] ([id number]) [address], [address] [place] [address] Chloride [Moles/Vol] 96 mmol/L Low 98-109 [facility] Comment on above: Performed By: #### P INR, 29354-1, 96052-9, CBCA, 35831-0, CMP, 4548-4, 6873-4 #### [facility] ([id number]) [address] [place] [address] 65306 #### HA1C #### [facility] ([id number]) [address], [address] [place] [address] CO2 [Moles/Vol] 24 mmol/L Normal 22-32 [facility] Comment on above: Performed By: #### P INR, 59843-4, 20478-1, CBCA, 06009-4, CMP, 4548-4, 6873-4 #### [facility] ([id number]) [address] [place] [address] 52033 #### HA1C #### [facility] ([id number]) [address], [address] [place] [address] Creatinine [Mass/Vol] 0.75 mg/dL Normal 0.70-1.20 [facility] Comment on above: Result Comment: METH OD TRACEABLE TO IDMS STANDARD Performed By: #### P INR, 63670-7, 59140-3, CBCA, 10491-4, CMP, 4548-4, 6873-4 #### [facility] ([id number]) [address] [place] [address] 15675 #### HA1C #### [facility] ([id number]) [address], [address] [place] [address] eGFR (CKD-EPI) NON-RACE DEPENDENT >90 Normal >59 [facility] Comment on above: Result Comment: Reported eGFR is based on the CKD-EPI 2021 equation that does not use a race coefficient. Performed By: #### P INR, 57422-7, 96579-8, CBCA, 24245-0, CMP, 4548-4, 6873-4 #### [facility] ([id number]) [address] [place] [address] 06598 #### HA1C #### [facility] ([id number]) [address], [address] [place] [address] Glucose [Mass/Vol] 263 mg/dL High 65-99 [facility] Comment on above: Performed By: #### P INR, 09276-0, 06198-5, CBCA, 57185-8, CMP, 4548-4, 6873-4 #### [facility] ([id number]) [address] [place] [address] 27870 #### HA1C #### [facility] ([id number]) [address], [address] [place] [address] Potassium [Moles/Vol] 4.2 mmol/L Normal 3.5-5.0 [facility] Comment on above: Performed By: #### P INR, 83922-7, 04614-7, CBCA, 19712-0, CMP, 4548-4, 6873-4 #### [facility] ([id number]) [address] [place] [address] 51015 #### HA1C #### [facility] ([id number]) [address], [address] [place] [address] Sodium [Moles/Vol] 131 mmol/L Low 134-146 [facility] Comment on above: Performed By: #### P INR, 10966-9, 51679-6, CBCA, 06588-2, CMP, 4548-4, 6873-4 #### [facility] ([id number]) [address] [place] [address] 62327 #### HA1C #### [facility] ([id number]) [address], [address] [place] [address] Urea nitrogen [Mass/Vol] 21 mg/dL Normal 5-27 [facility] Comment on above: Performed By: #### P INR, 56472-7, 16249-5, CBCA, 51834-3, CMP, 4548-4, 6873-4 #### [facility] ([id number]) [address] [place] [address] 09826 #### HA1C #### [facility] ([id number]) [address], [address] [place] [address] CBC AND AUTO DIFFon 10-29-19 Erythrocyte distribution width (RBC) [Ratio] 13.8 % Normal 11.5-15.0 [facility] Comment on above: Performed By: #### P INR, 62766-6, 89427-3, CBCA, 71336-1, CMP, 4548-4, 6873-4 #### [facility] ([id number]) [address] [place] [address] 49357 #### HA1C #### [facility] ([id number]) [address], [address] [place] [address] Hematocrit (Bld) [Volume fraction] 46.7 % Normal 39-49 [facility] Comment on above: Performed By: #### P INR, 50028-2, 25538-9, CBCA, 31167-5, CMP, 4548-4, 6873-4 #### [facility] ([id number]) [address] [place] [address] 73457 #### HA1C #### [facility] ([id number]) [address], [address] [place] [address] Hemoglobin (Bld) [Mass/Vol] 16.0 g/dL Normal 13.0-17.0 [facility] Comment on above: Performed By: #### P INR, 06389-2, 35429-6, CBCA, 73384-3, CMP, 4548-4, 6873-4 #### [facility] ([id number]) [address] [place] [address] 74319 #### HA1C #### [facility] ([id number]) [address], [address] [place] [address] LYMPHOCYTE, ATYPICAL 8.8 % Normal [facility] Comment on above: Performed By: #### P INR, 85424-9, 58430-5, CBCA, 21183-0, CMP, 4548-4, 6873-4 #### [facility] ([id number]) [address] [place] [address] 96994 #### HA1C #### [facility] ([id number]) [address], [address] [place] [address] Lymphocytes (Bld) [#/Vol] 1.9 10*3/uL Normal 1.0-3.5 [facility] Comment on above: Performed By: #### P INR, 71515-2, 50128-1, CBCA, 71023-6, CMP, 4548-4, 6873-4 #### [facility] ([id number]) [address] [place] [address] 10530 #### HA1C #### [facility] ([id number]) [address], [address] [place] [address] Lymphocytes/100 WBC (Bld) 46.1 % Normal [facility] Comment on above: Performed By: #### P INR, 09452-0, 11042-1, CBCA, 06317-3, CMP, 4548-4, 6873-4 #### [facility] ([id number]) [address] [place] [address] 93668 #### HA1C #### [facility] ([id number]) [address], [address] [place] [address] MCH (RBC) [Entitic mass] 29.4 pg Normal 27-34 [facility] Comment on above: Performed By: #### P INR, 95922-3, 06938-3, CBCA, 55600-4, CMP, 4548-4, 6873-4 #### [facility] ([id number]) [address] [place] [address] 79787 #### HA1C #### [facility] ([id number]) [address], [address] [place] [address] MCHC (RBC) [Mass/Vol] 34.2 g/dL Normal 32-36 [facility] Comment on above: Performed By: #### P INR, 65699-2, 38081-1, CBCA, 28497-4, CMP, 4548-4, 6873-4 #### [facility] ([id number]) [address] [place] [address] 35779 #### HA1C #### [facility] ([id number]) [address], [address] [place] [address] MCV (RBC) [Entitic vol] 86 fL Normal 80-100 P [facility] Comment on above: Performed By: #### P INR, 52335-5, 74334-8, CBCA, 60292-3, CMP, 4548-4, 6873-4 #### [facility] ([id number]) [address] [place] [address] 01035 #### HA1C #### [facility] ([id number]) [address], [address] [place] [address] Monocytes (Bld) [#/Vol] 0.2 10*3/uL Normal 0-0.9 [facility] Comment on above: Performed By: #### P INR, 66200-0, 65594-9, CBCA, 80292-9, CMP, 4548-4, 6873-4 #### [facility] ([id number]) [address] [place] [address] 18484 #### HA1C #### [facility] ([id number]) [address], [address] [place] [address] Monocytes/100 WBC (Bld) 4.9 % Normal [facility] Comment on above: Performed By: #### P INR, 37818-6, 87715-3, CBCA, 30396-3, CMP, 4548-4, 6873-4 #### [facility] ([id number]) [address] [place] [address] 24935 #### HA1C #### [facility] ([id number]) [address], [address] [place] [address] Neutrophils (Bld) [#/Vol] 1.4 10*3/uL Low 1.5-6.6 [facility] Comment on above: Performed By: #### P INR, 58262-6, 13020-2, CBCA, 55952-7, CMP, 4548-4, 6873-4 #### [facility] ([id number]) [address] [place] [address] 95159 #### HA1C #### [facility] ([id number]) [address], [address] [place] [address] Platelet mean volume (Bld) [Entitic vol] 7.7 fL Normal 7-12 [facility] Comment on above: Performed By: #### P INR, 74055-3, 94794-7, CBCA, 68500-8, CMP, 4548-4, 6873-4 #### [facility] ([id number]) [address] [place] [address] 68465 #### HA1C #### [facility] ([id number]) [address], [address] [place] [address] Platelets (Bld) [#/Vol] 214 10*3/uL Normal 150-450 [facility] Comment on above: Performed By: #### P INR, 67101-9, 44248-9, CBCA, 48499-5, CMP, 4548-4, 6873-4 #### [facility] ([id number]) [address] [place] [address] 52962 #### HA1C #### [facility] ([id number]) [address] [facility] [address] [place] [address] RBC COUNT 5.43 X10E12/L Normal 4.10-5.70 [facility] Comment on above: Performed By: #### P INR, 49439-1, 97098-5, CBCA, 03209-3, CMP, 4548-4, 6873-4 #### [facility] ([id number]) [address] [place] [address] 90193 #### HA1C #### [facility] ([id number]) [address] [place] [address] SEG NEUTROPHIL 40.2 % Normal [facility] Comment on above: Performed By: #### P INR, 81607-6, 02080-8, CBCA, 17604-3, CMP, 4548-4, 6873-4 #### [facility] ([id number]) [address] [place] [address] 84490 #### HA1C #### [facility] ([id number]) [address] [place] [address] WBC (Bld) [#/Vol] 3.4 10*3/uL Low 4.0-11.0 [facility] Comment on above: Performed By: #### P INR, 19501-5, 98368-3, CBCA, 09815-5, CMP, 4548-4, 6873-4 #### [facility] ([id number]) [address] [place] [address] 44695 #### HA1C #### [facility] ([id number]) [address] [facility], [address] [place] [address] COMPREHENSIVE METABOLIC PANE [place] 10-29-2023 Albumin [Mass/Vol] 4.1 g/dL Normal 3.2-5.3 [facility] Comment on above: Performed By: #### P INR, 71920-3, 24360-6, CBCA, 29708-0, CMP, 4548-4, 6873-4 #### [facility] ([id number]) [address] [place] [address] 44879 #### HA1C #### [facility] ([id number]) [address], [address] [place] [address] ALP [Catalytic activity/Vol] 66 U/L Normal 39-130 [facility] Comment on above: Performed By: #### P INR, 05670-2, 66329-6, CBCA, 96842-9, CMP, 4548-4, 6873-4 #### [facility] ([id number]) [address] [place] [address] 08778 #### HA1C #### [facility] ([id number]) [address] [facility] [address], [address] [place] [address] ALT [Catalytic activity/Vol] 27 U/L Normal 0-40 [facility] Comment on above: Performed By: #### P INR, 33534-2, 42868-0, CBCA, 36559-3, CMP, 4548-4, 6873-4 #### [facility] ([id number]) [address] [place] [address] 87128 #### HA1C #### [facility] ([id number]) [address], [address] [place] [address] Anion gap [Moles/Vol] 9 mmol/L Normal 5-15 [facility] Comment on above: Performed By: #### P INR, 26177-6, 14560-3, CBCA, 75843-0, CMP, 4548-4, 6873-4 #### [facility] ([id number]) [address] [place] [address] 94689 #### HA1C #### [facility] ([id number]) [address], [address] [place] [address] AST [Catalytic activity/Vol] 19 U/L Normal 0-41 [facility] Comment on above: Performed By: #### P INR, 50851-0, 42910-0, CBCA, 18567-2, CMP, 4548-4, 6873-4 #### [facility] ([id number]) [address] [place] [address] 56947 #### HA1C #### [facility] ([id number]) [address] [facility] [address], [address] [place] [address] Bilirubin [Mass/Vol] 0.7 mg/dL Normal 0.3-1.2 [facility] Comment on above: Performed By: #### P INR, 55815-8, 04070-9, CBCA, 45395-3, CMP, 4548-4, 6873-4 #### [facility] ([id number]) [address] [place] [address] 33586 #### HA1C #### [facility] ([id number]) [address] [facility] [address], [address] [place] [address] Calcium [Mass/Vol] 9.1 mg/dL Normal 8.5-10.5 [facility] Comment on above: Performed By: #### P INR, 80787-7, 36408-1, CBCA, 91499-6, CMP, 4548-4, 6873-4 #### [facility] ([id number]) [address] [place] [address] 77557 #### HA1C #### [facility] ([id number]) [address], [address] [place] [address] Chloride [Moles/Vol] 94 mmol/L Low 98-109 [facility] Comment on above: Performed By: #### P INR, 55433-4, 85981-6, CBCA, 87220-5, CMP, 4548-4, 6873-4 #### [facility] ([id number]) [address] [place] [address] 58761 #### HA1C #### [facility] ([id number]) [address], [address] [place] [address] CO2 [Moles/Vol] 28 mmol/L Normal 22-32 [facility] Comment on above: Performed By: #### P INR, 62983-4, 86999-6, CBCA, 99804-7, CMP, 4548-4, 6873-4 #### [facility] ([id number]) [address] [place] [address] 42088 #### HA1C #### [facility] ([id number]) [address], [address] [place] [address] Creatinine [Mass/Vol] 0.78 mg/dL Normal 0.70-1.20 [facility] Comment on above: Result Comment: METH OD TRACEABLE TO IDMS STANDARD Performed By: #### P INR, 01305-5, 09276-2, CBCA, 40446-1, CMP, 4548-4, 6873-4 #### [facility] ([id number]) [address] [place] [address] 18500 #### HA1C #### [facility] ([id number]) [address], [address] [place] [address] eGFR (CKD-EPI) NON-RACE DEPENDENT >90 Normal >59 [facility] Comment on above: Result Comment: Reported eGFR is based on the CKD-EPI 2020 equation that does not use a race coefficient. Performed By: #### P INR, 29897-1, 37601-2, CBCA, 95576-9, CMP, 4548-4, 6873-4 #### [facility] ([id number]) [address] [place] [address] 04312 #### HA1C #### [facility] ([id number]) [address], [address] [place] [address] Glucose [Mass/Vol] 232 mg/dL High 65-99 [facility] Comment on above: Performed By: #### P INR, 09071-2, 87918-4, CBCA, 61338-7, CMP, 4548-4, 6873-4 #### [facility] ([id number]) [address] [place] [address] 38345 #### HA1C #### [facility] ([id number]) [address], [address] [place] [address] Potassium [Moles/Vol] 4.1 mmol/L Normal 3.5-5.0 [facility] Comment on above: Performed By: #### P INR, 61845-4, 59877-0, CBCA, 06663-8, CMP, 4548-4, 6873-4 #### [facility] ([id number]) [address] [place] [address] 30415 #### HA1C #### [facility] ([id number]) [address], [address] [place] [address] Protein [Mass/Vol] 7.1 g/dL Normal 6.0-8.0 [facility] Comment on above: Performed By: #### P INR, 96020-7, 93666-6, CBCA, 90842-4, CMP, 4548-4, 6873-4 #### [facility] ([id number]) [address] [place] [address] 86120 #### HA1C #### [facility] ([id number]) [address], [address] [place] [address] Sodium [Moles/Vol] 131 mmol/L Low 134-146 [facility] Comment on above: Performed By: #### P INR, 84235-0, 28550-7, CBCA, 15101-0, CMP, 4548-4, 6873-4 #### [facility] ([id number]) [address] [place] [address] 18196 #### HA1C #### [facility] ([id number]) [address], [address] [place] [address] Urea nitrogen [Mass/Vol] 14 mg/dL Normal 5-27 [facility] Comment on above: Performed By: #### P INR, 54640-6, 66914-9, CBCA, 61815-1, CMP, 4548-4, 6873-4 #### [facility] ([id number]) [address] [place] [address] 51676 #### HA1C #### [facility] ([id number]) [address], [address] [place] [address] MAGNESIUMon 10-29-2023 Magnesium [Mass/Vol] 1.9 mg/dL Normal 1.8-2.6 [facility] Comment on above: Performed By: #### P INR, 72759-0, 90966-7, CBCA, 87376-8, CMP, 4548-4, 6873-4 #### [facility] ([id number]) [address] [place] [address] 06978 #### HA1C #### [facility] ([id number]) [address], [address] [place] [address] CBC AND AUTO DIFFon 10-28-19 24 ABSOLUTE BASOPHIL 0.1 X10E9/L Normal 0.0-0.2 [facility] Comment on above: Performed By: #### P INR, 96671-9, 71782-0, CBCA, 18290-3, CMP, 4548-4, 6873-4 #### [facility] ([id number]) [address] [place] [address] 62756 #### HA1C #### [facility] ([id number]) [address], [address] [place] [address] ABSOLUTE NEUTROPHIL 1.5 X10E9/L Normal 1.5-6.6 [facility] Comment on above: Performed By: #### P INR, 48809-5, 44156-7, CBCA, 83632-4, CMP, 4548-4, 6873-4 #### [facility] ([id number]) [address] [place] [address] 49124 #### HA1C #### [facility] ([id number]) [address], [address] [place] [address] Basophils/100 WBC (Bld) 1.4 % Normal P [facility] Comment on above: Performed By: #### P INR, 85719-4, 30859-8, CBCA, 52745-2, CMP, 4548-4, 6873-4 #### [facility] ([id number]) [address] [place] [address] 16396 #### HA1C #### [facility] ([id number]) [address], [address] [place] [address] Eosinophils (Bld) [#/Vol] 0.1 10*3/uL Normal 0.0-0.4 [facility] Comment on above: Performed By: #### P INR, 46075-4, 54685-6, CBCA, 63913-2, CMP, 4548-4, 6873-4 #### [facility] ([id number]) [address] [place] [address] 87137 #### HA1C #### [facility] ([id number]) [address], [address] [place] [address] Eosinophils/100 WBC (Bld) 3.1 % Normal [facility] Comment on above: Performed By: #### P INR, 71952-3, 28867-0, CBCA, 38253-8, CMP, 4548-4, 6873-4 #### [facility] ([id number]) [address] [place] [address] 48544 #### HA1C #### [facility] ([id number]) [address], [address] [place] [address] Erythrocyte distribution width (RBC) [Ratio] 13.6 % Normal 11.5-15.0 [facility] Comment on above: Performed By: #### P INR, 55047-4, 84087-3, CBCA, 69424-8, CMP, 4548-4, 6873-4 #### [facility] ([id number]) [address] [place] [address] 18095 #### HA1C #### [facility] ([id number]) [address], [address] [place] [address] Hematocrit (Bld) [Volume fraction] 42.8 % Normal 39-49 [facility] Comment on above: Performed By: #### P INR, 83574-6, 16785-2, CBCA, 92165-4, CMP, 4548-4, 6873-4 #### [facility] ([id number]) [address] [place] [address] 10408 #### HA1C #### [facility] ([id number]) [address], [address] [place] [address] Hemoglobin (Bld) [Mass/Vol] 14.9 g/dL Normal 13.0-17.0 [facility] Comment on above: Performed By: #### P INR, 81930-1, 66428-7, CBCA, 06788-5, CMP, 4548-4, 6873-4 #### [facility] ([id number]) [address] [place] [address] #### HA1C #### [facility] ([id number]) [address], [address] [place] [address] Lymphocytes (Bld) [#/Vol] 1.8 10*3/uL Normal 1.0-3.5 [facility] Comment on above: Performed By: #### P INR, 39334-1, 14018-7, CBCA, 71577-4, CMP, 4548-4, 6873-4 #### [facility] ([id number]) [address] [place] [address] #### HA1C #### [facility] ([id number]) [address], [address] [place] [address] Lymphocytes/100 WBC (Bld) 46.0 % Normal [facility] Comment on above: Performed By: #### P INR, 88656-1, 51533-7, CBCA, 20966-8, CMP, 4548-4, 6873-4 #### [facility] ([id number]) [address] [place] [address] #### HA1C #### [facility] ([id number]) [address], [address] [place] [address] MCH (RBC) [Entitic mass] 29.6 pg Normal 27-34 [facility] Comment on above: Performed By: #### P INR, 08370-1, 17417-7, CBCA, 09009-8, CMP, 4548-4, 6873-4 #### [facility] ([id number]) [address] [place] [address] #### HA1C #### [facility] ([id number]) [address], [address] [place] [address] MCHC (RBC) [Mass/Vol] 34.7 g/dL Normal 32-36 [facility] Comment on above: Performed By: #### P INR, 26330-5, 96308-4, CBCA, 05713-8, CMP, 4548-4, 6873-4 #### [facility] ([id number]) [address] [place] [address] #### HA1C #### [facility] ([id number]) [address], [address] [place] [address] MCV (RBC) [Entitic vol] 86 fL Normal 80-100 P [facility] Comment on above: Performed By: #### P INR, 17761-7, 75029-1, CBCA, 64429-1, CMP, 4548-4, 6873-4 #### [facility] ([id number]) [address] [place] [address] #### HA1C #### [facility] ([id number]) [address], [address] [place] [address] Monocytes (Bld) [#/Vol] 0.4 10*3/uL Normal 0-0.9 [facility] Comment on above: Performed By: #### P INR, 27377-3, 56479-1, CBCA, 08045-1, CMP, 4548-4, 6873-4 #### [facility] ([id number]) [address] [place] [address] 45[address] #### HA1C #### [facility] ([id number]) [address], [address] [place] [address] Monocytes/100 WBC (Bld) 10.4 % Normal P [facility] Comment on above: Performed By: #### P INR, 40976-8, 40527-4, CBCA, 87837-2, CMP, 4548-4, 6873-4 #### [facility] ([id number]) [address] [place] [address] #### HA1C #### [facility] ([id number]) [address], [address] [place] [address] Neutrophils/100 WBC (Bld) 39.1 % Normal [facility] Comment on above: Performed By: #### P INR, 31335-1, 91710-2, CBCA, 40185-3, CMP, 4548-4, 6873-4 #### [facility] ([id number]) [address] [place] [address] #### HA1C #### [facility] ([id number]) [address] [facility], [address] [place] [address] Platelet mean volume (Bld) [Entitic vol] 7.9 fL Normal 7-12 [facility] Comment on above: Performed By: #### P INR, 41056-0, 08738-6, CBCA, 70801-1, CMP, 4548-4, 6873-4 #### [facility] ([id number]) [address] [place] [address] #### HA1C #### [facility] ([id number]) [address], [address] [place] [address] Platelets (Bld) [#/Vol] 197 10*3/uL Normal 150-450 [facility] Comment on above: Performed By: #### P INR, 97405-4, 70596-4, CBCA, 33778-1, CMP, 4548-4, 6873-4 #### [facility] ([id number]) [address] [place] [address] #### HA1C #### [facility] ([id number]) [address], [address] [place] [address] RBC COUNT 5.01 X10E12/L Normal 4.10-5.70 [facility] Comment on above: Performed By: #### P INR, 60982-6, 36247-0, CBCA, 52138-8, CMP, 4548-4, 6873-4 #### [facility] ([id number]) [address] [place] [address] 20498 #### HA1C #### [facility] ([id number]) [address], [address] [place] [address] WBC (Bld) [#/Vol] 3.9 10*3/uL Low 4.0-11.0 [facility] Comment on above: Performed By: #### P INR, 26533-3, 78118-8, CBCA, 51843-9, CMP, 4548-4, 6873-4 #### [facility] ([id number]) [address] [place] [address] 03258 #### HA1C #### [facility] ([id number]) [address] [address], [address] [place] [address] COMPREHENSIVE METABOLIC PANE [place] 10-28-2023 Albumin [Mass/Vol] 3.8 g/dL Normal 3.2-5.3 [facility] Comment on above: Performed By: #### P INR, 09556-6, 38517-6, CBCA, 35682-0, CMP, 4548-4, 6873-4 #### [facility] ([id number]) [address] [place] [address] 39081 #### HA1C #### [facility] ([id number]) [address], [address] [place] [address] ALP [Catalytic activity/Vol] 61 U/L Normal 39-130 [facility] Comment on above: Performed By: #### P INR, 00984-1, 71006-3, CBCA, 20774-6, CMP, 4548-4, 6873-4 #### [facility] ([id number]) [address] [place] [address] 89024 #### HA1C #### [facility] ([id number]) [address], [address] [place] [address] ALT [Catalytic activity/Vol] 22 U/L Normal 0-40 [facility] Comment on above: Performed By: #### P INR, 03666-8, 38299-1, CBCA, 47327-0, CMP, 4548-4, 6873-4 #### [facility] ([id number]) [address] [place] [address] 43406 #### HA1C #### [facility] ([id number]) [address] [address], [address] [place] [address] Anion gap [Moles/Vol] 10 mmol/L Normal 5-15 [facility] Comment on above: Performed By: #### P INR, 75691-4, 55650-1, CBCA, 62272-3, CMP, 4548-4, 6873-4 #### [facility] ([id number]) [address] [place] [address] 35511 #### HA1C #### [facility] ([id number]) [address] [facility] [address], [address] [place] [address] AST [Catalytic activity/Vol] 18 U/L Normal 0-41 [facility] Comment on above: Performed By: #### P INR, 44803-8, 52659-8, CBCA, 34802-1, CMP, 4548-4, 6873-4 #### [facility] ([id number]) [address] [place] [address] 14860 #### HA1C #### [facility] ([id number]) [address] [facility] [address], [address] [place] [address] Bilirubin [Mass/Vol] 0.8 mg/dL Normal 0.3-1.2 [facility] Comment on above: Performed By: #### P INR, 91000-7, 47941-7, CBCA, 18903-7, CMP, 4548-4, 6873-4 #### [facility] ([id number]) [address] [place] [address] 22254 #### HA1C #### [facility] ([id number]) [address] [facility] [address], [address] [place] [address] Calcium [Mass/Vol] 8.5 mg/dL Normal 8.5-10.5 [facility] Comment on above: Performed By: #### P INR, 17898-8, 88289-2, CBCA, 63025-1, CMP, 4548-4, 6873-4 #### [facility] ([id number]) [address] [place] [address] 57466 #### HA1C #### [facility] ([id number]) [address] [facility] [address], [address] [place] [address] Chloride [Moles/Vol] 94 mmol/L Low 98-109 [facility] Comment on above: Performed By: #### P INR, 77610-9, 77453-0, CBCA, 96466-1, CMP, 4548-4, 6873-4 #### [facility] ([id number]) [address] [place] [address] 88814 #### HA1C #### [facility] ([id number]) [address], [address] [place] [address] CO2 [Moles/Vol] 26 mmol/L Normal 22-32 [facility] Comment on above: Performed By: #### P INR, 17303-1, 03857-5, CBCA, 25848-5, CMP, 4548-4, 6873-4 #### [facility] ([id number]) [address] [place] [address] 19951 #### HA1C #### [facility] ([id number]) [address], [address] [place] [address] Creatinine [Mass/Vol] 0.79 mg/dL Normal 0.70-1.20 [facility] Comment on above: Result Comment: METH OD TRACEABLE TO IDMS STANDARD Performed By: #### P INR, 52914-1, 94633-4, CBCA, 78411-8, CMP, 4548-4, 6873-4 #### [facility] ([id number]) [address] [place] [address] 67664 #### HA1C #### [facility] ([id number]) [address], [facility] [address] [place] [address] eGFR (CKD-EPI) NON-RACE DEPENDENT >90 Normal >59 [facility] Comment on above: Result Comment: Reported eGFR is based on the CKD-EPI 2020 equation that does not use a race coefficient. Performed By: #### P INR, 76780-3, 54120-1, CBCA, 24947-7, CMP, 4548-4, 6873-4 #### [facility] ([id number]) [address] [place] [address] 88632 #### HA1C #### [facility] ([id number]) [address], [address] [place] [address] Glucose [Mass/Vol] 228 mg/dL High 65-99 [facility] Comment on above: Performed By: #### P INR, 20426-2, 58888-8, CBCA, 57858-2, CMP, 4548-4, 6873-4 #### [facility] ([id number]) [address] [place] [address] 06053 #### HA1C #### [facility] ([id number]) [address], [address] [place] [address] Potassium [Moles/Vol] 3.7 mmol/L Normal 3.5-5.0 [facility] Comment on above: Performed By: #### P INR, 75183-6, 25252-4, CBCA, 45518-2, CMP, 4548-4, 6873-4 #### [facility] ([id number]) [address] [place] [address] 76084 #### HA1C #### [facility] ([id number]) [address], [address] [place] [address] Protein [Mass/Vol] 6.3 g/dL Normal 6.0-8.0 [facility] Comment on above: Performed By: #### P INR, 85144-1, 36728-3, CBCA, 61259-3, CMP, 4548-4, 6873-4 #### [facility] ([id number]) [address] [place] [address] 52404 #### HA1C #### [facility] ([id number]) [address], [address] [place] [address] Sodium [Moles/Vol] 130 mmol/L Low 134-146 [facility] Comment on above: Performed By: #### P INR, 03297-0, 27858-3, CBCA, 61025-0, CMP, 4548-4, 6873-4 #### [facility] ([id number]) [address] [place] [address] 14219 #### HA1C #### [facility] ([id number]) [address], [address] [place] [address] Urea nitrogen [Mass/Vol] 16 mg/dL Normal 5-27 [facility] Comment on above: Performed By: #### P INR, 96133-0, 65040-4, CBCA, 61230-0, CMP, 4548-4, 6873-4 #### [facility] ([id number]) [address] [place] [address] 04293 #### HA1C #### [facility] ([id number]) [address], [address] [place] [address] CT CTA CAROTIDon 10-28-2023 CT CTA CAROTID [...] Giles MD on 10/28/2023 12:26 PM Normal [facility] CT CTA HEADon 10-28-2023 CT [...] Mayes MD on 10/28/2023 12:38 PM Normal [facility] Glucose Glucometer (BldC) [M ass/Vol]on 10-28-2023 Glucose [Mass/Vol] 226 mg/dL High 65-99 [facility] Glucose [Mass/Vol] 279 mg/dL High 65-99 [facility] Glucose [Mass/Vol] 248 mg/dL High 65-99 [facility] Glucose [Mass/Vol] 221 mg/dL High 65-99 [facility] Lipid 1996 panelon Cholesterol [Mass/Vol] 219 mg/dL High 150-200 [facility] Comment on above: Performed By: #### P INR, 08314-8, 80425-2, CBCA, 48795-0, CMP, 4548-4, 6873-4 #### [facility] ([id number]) [address] [place] [address] 07864 #### HA1C #### [facility] ([id number]) [address] [facility] [address], [address] [place] [address] Cholesterol in HDL [Mass/Vol] 43 mg/dL Normal >39 [facility] Comment on above: Result Comment: HDL <40 mg/dL - High Risk HDL > or = 40mg/dL- Desirable HDL >60 mg/dL - Negative Risk Performed By: #### P INR, 92698-0, 86751-4, CBCA, 91583-7, CMP, 4548-4, 6873-4 #### [facility] ([id number]) [address] [place] [address] 65868 #### HA1C #### [facility] ([id number]) [address] [facility], [address] [place] [address] Cholesterol in LDL [Mass/Vol] 143 mg/dL High <130 [facility] Comment on above: Result Comment: LDL <100 mg/dL - Desirable LDL >160 mg/dL - High Risk Performed By: #### P INR, 82166-2, 97610-1, CBCA, 59415-8, CMP, 4548-4, 6873-4 #### [facility] ([id number]) [address] [place] [address] 33432 #### HA1C #### [facility] ([id number]) [address], [address] [place] [address] Cholesterol in VLDL [Mass/Vol] 33 mg/dL High 0-30 [facility] Comment on above: Performed By: #### P INR, 12182-5, 86301-8, CBCA, 58627-9, CMP, 4548-4, 6873-4 #### [facility] ([id number]) [address] [place] [address] 73574 #### HA1C #### [facility] ([id number]) [address] [facility], [address] [place] [address] CHOLESTEROL:HDL 5.1 High 1.0-5.0 [facility] Comment on above: Performed By: #### P INR, 29603-4, 30148-0, CBCA, 05704-5, CMP, 4548-4, 6873-4 #### [facility] ([id number]) [address] [place] [address] 68979 #### HA1C #### [facility] ([id number]) [address], [address] [place] [address] Triglyceride [Mass/Vol] 164 mg/dL High 27-150 P [facility] Comment on above: Performed By: #### P INR, 19301-0, 96952-1, CBCA, 47563-1, CMP, 4548-4, 6873-4 #### [facility] ([id number]) [address] [place] [address] #### HA1C #### [facility] ([id number]) [address], [address] [place] [address] MAGNESIUMon 10-28-2023 Magnesium [Mass/Vol] 1.8 mg/dL Normal 1.8-2.6 [facility] Comment on above: Performed By: #### P INR, 28486-8, 35017-8, CBCA, 29723-6, CMP, 4548-4, 6873-4 #### [facility] ([id number]) [address] [place] [address] #### HA1C #### [facility] ([id number]) [address], [address] [place] [address] MR BRAIN WO CONTon 4 MR BRAIN [...] Anderson MD on 10/28/2023 10:39 AM Normal [facility] CBC AND AUTO DIFFon 10-27-19 24 ABSOLUTE BASOPHIL 0.0 X10E9/L Normal 0.0-0.2 [facility] Comment on above: Performed By: #### P INR, 40898-9, 51926-5, CBCA, 99990-5, CMP, 4548-4, 6873-4 #### [facility] ([id number]) [address] [place] [address] 38691 #### HA1C #### [facility] ([id number]) [address] [facility] [place] [address] ABSOLUTE NEUTROPHIL 1.8 X10E9/L Normal 1.5-6.6 [facility] Comment on above: Performed By: #### P INR, 33469-1, 86793-7, CBCA, 00081-8, CMP, 4548-4, 6873-4 #### [facility] ([id number]) [address] [place] [address] 41522 #### HA1C #### [facility] ([id number]) [address] [facility] [address] [place] [address] Basophils/100 WBC (Bld) 1.2 % Normal P [facility] Comment on above: Performed By: #### P INR, 48691-5, 98835-3, CBCA, 11908-1, CMP, 4548-4, 6873-4 #### [facility] ([id number]) [address] [place] [address] 37466 #### HA1C #### [facility] ([id number]) [address], [facility] [address] [place] [address] Eosinophils (Bld) [#/Vol] 0.1 10*3/uL Normal 0.0-0.4 [facility] Comment on above: Performed By: #### P INR, 47310-4, 30215-4, CBCA, 59732-5, CMP, 4548-4, 6873-4 #### [facility] ([id number]) [address] [place] [address] 39180 #### HA1C #### [facility] ([id number]) [address] [address] Eosinophils/100 WBC (Bld) 2.5 % Normal [facility] Comment on above: Performed By: #### P INR, 82388-1, 38628-8, CBCA, 03721-8, CMP, 4548-4, 6873-4 #### [facility] ([id number]) [address] [place] [address] 70466 #### HA1C #### [facility] ([id number]) [address] [address] Erythrocyte distribution width (RBC) [Ratio] 13.5 % Normal 11.5-15.0 [facility] Comment on above: Performed By: #### P INR, 97952-9, 76234-2, CBCA, 98742-9, CMP, 4548-4, 6873-4 #### [facility] ([id number]) [address] [place] [address] 44305 #### HA1C #### [facility] ([id number]) [address], [address] [place] [address] Hematocrit (Bld) [Volume fraction] 43.3 % Normal 39-49 [facility] Comment on above: Performed By: #### P INR, 80072-4, 30607-1, CBCA, 85122-0, CMP, 4548-4, 6873-4 #### [facility] ([id number]) [address] [place] [address] 66653 #### HA1C #### [facility] ([id number]) [address], [address] [place] [address] Hemoglobin (Bld) [Mass/Vol] 14.9 g/dL Normal 13.0-17.0 [facility] Comment on above: Performed By: #### P INR, 25662-6, 27585-2, CBCA, 27907-0, CMP, 4548-4, 6873-4 #### [facility] ([id number]) [address] [place] [address] 24182 #### HA1C #### [facility] ([id number]) [address], [address] [place] [address] Lymphocytes (Bld) [#/Vol] 1.3 10*3/uL Normal 1.0-3.5 [facility] Comment on above: Performed By: #### P INR, 78505-3, 84439-1, CBCA, 92426-2, CMP, 4548-4, 6873-4 #### [facility] ([id number]) [address] [place] [address] 22887 #### HA1C #### [facility] ([id number]) [address], [address] [place] [address] Lymphocytes/100 WBC (Bld) 36.9 % Normal [facility] Comment on above: Performed By: #### P INR, 37442-4, 22162-2, CBCA, 60110-3, CMP, 4548-4, 6873-4 #### [facility] ([id number]) [address] [place] [address] 39627 #### HA1C #### [facility] ([id number]) [address], [address] [place] [address] MCH (RBC) [Entitic mass] 29.3 pg Normal 27-34 [facility] Comment on above: Performed By: #### P INR, 14994-4, 12095-1, CBCA, 03717-7, CMP, 4548-4, 6873-4 #### [facility] ([id number]) [address] [place] [address] 45782 #### HA1C #### [facility] ([id number]) [address], [address] [place] [address] MCHC (RBC) [Mass/Vol] 34.4 g/dL Normal 32-36 [facility] Comment on above: Performed By: #### P INR, 83928-4, 18536-3, CBCA, 88028-3, CMP, 4548-4, 6873-4 #### [facility] ([id number]) [address] [place] [address] 82587 #### HA1C #### [facility] ([id number]) [address], [address] [place] [address] MCV (RBC) [Entitic vol] 85 fL Normal 80-100 [facility] Comment on above: Performed By: #### P INR, 33494-6, 06407-9, CBCA, 62949-5, CMP, 4548-4, 6873-4 #### [facility] ([id number]) [address] [place] [address] 53205 #### HA1C #### [facility] ([id number]) [address], [address] [place] [address] Monocytes (Bld) [#/Vol] 0.3 10*3/uL Normal 0-0.9 [facility] Comment on above: Performed By: #### P INR, 74137-8, 81681-7, CBCA, 13782-7, CMP, 4548-4, 6873-4 #### [facility] ([id number]) [address] [place] [address] 20107 #### HA1C #### [facility] ([id number]) [address], [address] [place] [address] Monocytes/100 WBC (Bld) 8.4 % Normal [facility] Comment on above: Performed By: #### P INR, 97518-3, 45710-0, CBCA, 50623-4, CMP, 4548-4, 6873-4 #### [facility] ([id number]) [address] [place] [address] 14248 #### HA1C #### [facility] ([id number]) [address], [address] [place] [address] Neutrophils/100 WBC (Bld) 51.0 % Normal [facility] Comment on above: Performed By: #### P INR, 95475-2, 29290-7, CBCA, 50947-0, CMP, 4548-4, 6873-4 #### [facility] ([id number]) [address] [place] [address] 41025 #### HA1C #### [facility] ([id number]) [address], [address] [place] [address] Platelet mean volume (Bld) [Entitic vol] 7.7 fL Normal 7-12 [facility] Comment on above: Performed By: #### P INR, 83613-0, 56867-2, CBCA, 57640-0, CMP, 4548-4, 6873-4 #### [facility] ([id number]) [address] [place] [address] 30848 #### HA1C #### [facility] ([id number]) [address], [address] [place] [address] Platelets (Bld) [#/Vol] 192 10*3/uL Normal 150-450 [facility] Comment on above: Performed By: #### P INR, 78642-1, 03457-5, CBCA, 81272-5, CMP, 4548-4, 6873-4 #### [facility] ([id number]) [address] [place] [address] 12793 #### HA1C #### [facility] ([id number]) [address] [facility] [place] [address] RBC COUNT 5.08 X10E12/L Normal 4.10-5.70 [facility] Comment on above: Performed By: #### P INR, 89611-4, 56467-5, CBCA, 90216-7, CMP, 4548-4, 6873-4 #### [facility] ([id number]) [address] [place] [address] 01322 #### HA1C #### [facility] ([id number]) [address], [address] [place] [address] WBC (Bld) [#/Vol] 3.6 10*3/uL Low 4.0-11.0 [facility] Comment on above: Performed By: #### P INR, 90988-8, 21504-0, CBCA, 92712-4, CMP, 4548-4, 6873-4 #### [facility] ([id number]) [address] [place] [address] 77043 #### HA1C #### [facility] ([id number]) [address], [address] [place] [address] COMPREHENSIVE METABOLIC PANE [place] 10-27-2023 Albumin [Mass/Vol] 4.0 g/dL Normal 3.2-5.3 [facility] Comment on above: Performed By: #### P INR, 18628-1, 23366-2, CBCA, 20427-1, CMP, 4548-4, 6873-4 #### [facility] ([id number]) [address] [place] [address] 62705 #### HA1C #### [facility] ([id number]) [address] [facility] [place] [address] ALP [Catalytic activity/Vol] 65 U/L Normal 39-130 [facility] Comment on above: Performed By: #### P INR, 78876-3, 78213-7, CBCA, 01237-2, CMP, 4548-4, 6873-4 #### [facility] ([id number]) [address] [place] [address] 61762 #### HA1C #### [facility] ([id number]) [address], [address] [place] [address] ALT [Catalytic activity/Vol] 21 U/L Normal 0-40 [facility] Comment on above: Performed By: #### P INR, 32817-7, 98763-2, CBCA, 05676-2, CMP, 4548-4, 6873-4 #### [facility] ([id number]) [address] [place] [address] 23677 #### HA1C #### [facility] ([id number]) [address] [place] [address] Anion gap [Moles/Vol] 4 mmol/L Low 5-15 [facility] Comment on above: Performed By: #### P INR, 68879-3, 81100-3, CBCA, 16157-1, CMP, 4548-4, 6873-4 #### [facility] ([id number]) [address] [place] [address] 72373 #### HA1C #### [facility] ([id number]) [address] [place] [address] AST [Catalytic activity/Vol] 17 U/L Normal 0-41 [facility] Comment on above: Performed By: #### P INR, 67962-5, 96642-0, CBCA, 08661-2, CMP, 4548-4, 6873-4 #### [facility] ([id number]) [address] [place] [address] 44591 #### HA1C #### [facility] ([id number]) [address], [address] [place] [address] Bilirubin [Mass/Vol] 1.1 mg/dL Normal 0.3-1.2 [facility] Comment on above: Performed By: #### P INR, 29335-1, 40805-0, CBCA, 05317-9, CMP, 4548-4, 6873-4 #### [facility] ([id number]) [address] [place] [address] 32067 #### HA1C #### [facility] ([id number]) [address], [address] [place] [address] Calcium [Mass/Vol] 8.3 mg/dL Low 8.5-10.5 [facility] Comment on above: Performed By: #### P INR, 18482-3, 59201-2, CBCA, 46957-6, CMP, 4548-4, 6873-4 #### [facility] ([id number]) [address] [place] [address] 60426 #### HA1C #### [facility] ([id number]) [address], [address] [place] [address] Chloride [Moles/Vol] 101 mmol/L Normal 98-109 [facility] Comment on above: Performed By: #### P INR, 23210-5, 86802-3, CBCA, 41640-3, CMP, 4548-4, 6873-4 #### [facility] ([id number]) [address] [place] [address]79 #### HA1C #### [facility] ([id number]) [address], [address] [place] [address] CO2 [Moles/Vol] 24 mmol/L Normal 22-32 [facility] Comment on above: Performed By: #### P INR, 94053-7, 02123-1, CBCA, 67393-7, CMP, 4548-4, 6873-4 #### [facility] ([id number]) [address] [place] [address] 35338 #### HA1C #### [facility] ([id number]) [address], [address] [place] [address] Creatinine [Mass/Vol] 0.75 mg/dL Normal 0.70-1.20 [facility] Comment on above: Result Comment: METH OD TRACEABLE TO IDMS STANDARD Performed By: #### P INR, 00210-2, 20537-7, CBCA, 95895-9, CMP, 4548-4, 6873-4 #### [facility] ([id number]) [address] [place] [address] 75384 #### HA1C #### [facility] ([id number]) [address], [address] [place] [address] eGFR (CKD-EPI) NON-RACE DEPENDENT >90 Normal >59 [facility] Comment on above: Result Comment: Reported eGFR is based on the CKD-EPI 2020 equation that does not use a race coefficient. Performed By: #### P INR, 79834-8, 53314-1, CBCA, 99153-9, CMP, 4548-4, 6873-4 #### [facility] ([id number]) [address] [place] [address] 66363 #### HA1C #### [facility] ([id number]) [address], [address] [place] [address] Glucose [Mass/Vol] 272 mg/dL High 65-99 [facility] Comment on above: Performed By: #### P INR, 18725-0, 82039-9, CBCA, 92583-6, CMP, 4548-4, 6873-4 #### [facility] ([id number]) [address] [place] [address] 09394 #### HA1C #### [facility] ([id number]) [address], [address] [place] [address] Potassium [Moles/Vol] 4.1 mmol/L Normal 3.5-5.0 [facility] Comment on above: Performed By: #### P INR, 66130-4, 79553-0, CBCA, 50123-9, CMP, 4548-4, 6873-4 #### [facility] ([id number]) [address] [place] [address]59[address] #### HA1C #### [facility] ([id number]) [address], [address] [place] [address] Protein [Mass/Vol] 6.4 g/dL Normal 6.0-8.0 [facility] Comment on above: Performed By: #### P INR, 13309-6, 09470-0, CBCA, 53482-3, CMP, 4548-4, 6873-4 #### [facility] ([id number]) [address] [place] [address]30[address] #### HA1C #### [facility] ([id number]) [address], [address] [place] [address] Sodium [Moles/Vol] 129 mmol/L Low 134-146 [facility] Comment on above: Performed By: #### P INR, 27577-8, 96119-9, CBCA, 37388-8, CMP, 4548-4, 6873-4 #### [facility] ([id number]) [address] [place] [address] 80347 #### HA1C #### [facility] ([id number]) [address], [address] [place] [address] Urea nitrogen [Mass/Vol] 20 mg/dL Normal 5-27 [facility] Comment on above: Performed By: #### P INR, 79562-7, 86305-4, CBCA, 57449-7, CMP, 4548-4, 6873-4 #### [facility] ([id number]) [address] [place] [address] 65915 #### HA1C #### [facility] ([id number]) [address], [address] [place] [address] Glucose Glucometer (dC) [M ass/Vol]on 10-27-2023 Glucose [Mass/Vol] 293 mg/dL High 65-99 [facility] Glucose [Mass/Vol] 311 mg/dL High 65-99 [facility] Glucose [Mass/Vol] 270 mg/dL High 65-99 [facility] Glucose [Mass/Vol] 280 mg/dL High 65-99 [facility] Glucose [Mass/Vol] 260 mg/dL High 65-99 [facility] MAGNESIUMon 10-27-2023 Magnesium [Mass/Vol] 2.2 mg/dL Normal 1.8-2.6 [facility] Comment on above: Performed By: #### P INR, 61600-1, 36325-0, CBCA, 83330-7, CMP, 4548-4, 6873-4 #### [facility] ([id number]) [address] [place] [address] 91932 #### HA1C #### [facility] ([id number]) [address], [address] [place] [address] Beta hydroxybutyrate [Moles/ Vol]on 10-26-2023 BetaHydroxybutyrate 1.69 mmol/L High 0.02-0.27 [facility] Comment on above: Performed By: #### P INR, 32857-2, 20077-8, CBCA, 33526-6, CMP, 4548-4, 6873-4 #### [facility] ([id number]) [address] [place] [address] 80590 #### HA1C #### [facility] ([id number]) [address] [facility], [address] [place] [address] CBC AND AUTO DIFFon 10-26-20 ABSOLUTE BASOPHIL 0.0 X10E9/L Normal 0.0-0.2 [facility] Comment on above: Performed By: #### P INR, 14660-6, 90000-0, CBCA, 58596-9, CMP, 4548-4, 6873-4 #### [facility] ([id number]) [address] [place] [address] 53542 #### HA1C #### [facility] ([id number]) [address], [address] [place] [address] ABSOLUTE NEUTROPHIL 2.5 X10E9/L Normal 1.5-6.6 [facility] Comment on above: Performed By: #### P INR, 45453-3, 46203-9, CBCA, 50201-7, CMP, 4548-4, 6873-4 #### [facility] ([id number]) [address] [place] [address] 49365 #### HA1C #### [facility] ([id number]) [address] [facility], [address] [place] [address] Basophils/100 WBC (Bld) 1.0 % Normal P [facility] Comment on above: Performed By: #### P INR, 12213-7, 84329-3, CBCA, 26332-6, CMP, 4548-4, 6873-4 #### [facility] ([id number]) [address] [place] [address] 88582 #### HA1C #### [facility] ([id number]) [address] [facility], [address] [place] [address] Eosinophils (Bld) [#/Vol] 0.1 10*3/uL Normal 0.0-0.4 [facility] Comment on above: Performed By: #### P INR, 68386-2, 98808-2, CBCA, 50678-2, CMP, 4548-4, 6873-4 #### [facility] ([id number]) [address] [place] [address] 64960 #### HA1C #### [facility] ([id number]) [address] [facility], [address] [place] [address] Eosinophils/100 WBC (Bld) 1.2 % Normal [facility] Comment on above: Performed By: #### P INR, 02160-6, 15008-3, CBCA, 56816-8, CMP, 4548-4, 6873-4 #### [facility] ([id number]) [address] [place] [address] 24800 #### HA1C #### [facility] ([id number]) [address] [facility], [address] [place] [address] Erythrocyte distribution width (RBC) [Ratio] 13.4 % Normal 11.5-15.0 [facility] Comment on above: Performed By: #### P INR, 74915-7, 19424-3, CBCA, 38314-3, CMP, 4548-4, 6873-4 #### [facility] ([id number]) [address] [place] [address] 85780 #### HA1C #### [facility] ([id number]) [address], [address] [place] [address] Hematocrit (Bld) [Volume fraction] 46.5 % Normal 39-49 [facility] Comment on above: Performed By: #### P INR, 09448-8, 55871-7, CBCA, 78706-7, CMP, 4548-4, 6873-4 #### [facility] ([id number]) [address] [place] [address] 84582 #### HA1C #### [facility] ([id number]) [address], [address] [place] [address] Hemoglobin (Bld) [Mass/Vol] 16.0 g/dL Normal 13.0-17.0 [facility] Comment on above: Performed By: #### P INR, 38905-2, 12237-5, CBCA, 76403-8, CMP, 4548-4, 6873-4 #### [facility] ([id number]) [address] [place] [address] 49285 #### HA1C #### [facility] ([id number]) [address], [address] [place] [address] Lymphocytes (Bld) [#/Vol] 1.4 10*3/uL Normal 1.0-3.5 [facility] Comment on above: Performed By: #### P INR, 04095-2, 15566-6, CBCA, 72635-9, CMP, 4548-4, 6873-4 #### [facility] ([id number]) [address] [place] [address] 98288 #### HA1C #### [facility] ([id number]) [address], [address] [place] [address] Lymphocytes/100 WBC (Bld) 31.7 % Normal [facility] Comment on above: Performed By: #### P INR, 49014-4, 64184-0, CBCA, 04084-8, CMP, 4548-4, 6873-4 #### [facility] ([id number]) [address] [place] [address] 05583 #### HA1C #### [facility] ([id number]) [address] [facility], [address] [place] [address] MCH (RBC) [Entitic mass] 29.6 pg Normal 27-34 [facility] Comment on above: Performed By: #### P INR, 35928-9, 32038-5, CBCA, 25105-0, CMP, 4548-4, 6873-4 #### [facility] ([id number]) [address] [place] [address] 56307 #### HA1C #### [facility] ([id number]) [address], [address] [place] [address] MCHC (RBC) [Mass/Vol] 34.4 g/dL Normal 32-36 [facility] Comment on above: Performed By: #### P INR, 88131-0, 72952-7, CBCA, 10979-5, CMP, 4548-4, 6873-4 #### [facility] ([id number]) [address] [place] [address] 49972 #### HA1C #### [facility] ([id number]) [address], [address] [place] [address] MCV (RBC) [Entitic vol] 86 fL Normal 80-100 [facility] Comment on above: Performed By: #### P INR, 14893-0, 12477-8, CBCA, 02878-0, CMP, 4548-4, 6873-4 #### [facility] ([id number]) [address] [place] [address] 19802 #### HA1C #### [facility] ([id number]) [address] [facility], [address] [place] [address] Monocytes (Bld) [#/Vol] 0.3 10*3/uL Normal 0-0.9 [facility] Comment on above: Performed By: #### P INR, 95074-3, 70984-5, CBCA, 17539-7, CMP, 4548-4, 6873-4 #### [facility] ([id number]) [address] [place] [address] 99031 #### HA1C #### [facility] ([id number]) [address] [facility], [address] [place] [address] Monocytes/100 WBC (Bld) 7.3 % Normal [facility] Comment on above: Performed By: #### P INR, 22982-0, 16103-8, CBCA, 95778-3, CMP, 4548-4, 6873-4 #### [facility] ([id number]) [address] [place] [address] 30619 #### HA1C #### [facility] ([id number]) [address] [facility], [address] [place] [address] Neutrophils/100 WBC (Bld) 58.8 % Normal [facility] Comment on above: Performed By: #### P INR, 44836-1, 07981-8, CBCA, 62966-5, CMP, 4548-4, 6873-4 #### [facility] ([id number]) [address] [place] [address] 62492 #### HA1C #### [facility] ([id number]) [address], [address] [place] [address] Platelet mean volume (Bld) [Entitic vol] 8.0 fL Normal 7-12 [facility] Comment on above: Performed By: #### P INR, 13288-1, 17639-1, CBCA, 03795-6, CMP, 4548-4, 6873-4 #### [facility] ([id number]) [address] [place] [address] 44705 #### HA1C #### [facility] ([id number]) [address], [address] [place] [address] Platelets (Bld) [#/Vol] 219 10*3/uL Normal 150-450 [facility] Comment on above: Performed By: #### P INR, 38786-6, 69554-8, CBCA, 47748-7, CMP, 4548-4, 6873-4 #### [facility] ([id number]) [address] [place] [address] 03058 #### HA1C #### [facility] ([id number]) [address], [address] [place] [address] RBC COUNT 5.41 X10E12/L Normal 4.10-5.70 [facility] Comment on above: Performed By: #### P INR, 03285-0, 03766-6, CBCA, 24188-4, CMP, 4548-4, 6873-4 #### [facility] ([id number]) [address] [place] [address] 30734 #### HA1C #### [facility] ([id number]) [address], [address] [place] [address] WBC (Bld) [#/Vol] 4.3 10*3/uL Normal 4.0-11.0 [facility] Comment on above: Performed By: #### P INR, 22107-0, 83328-9, CBCA, 29137-0, CMP, 4548-4, 6873-4 #### [facility] ([id number]) [address] [place] [address] 59558 #### HA1C #### [facility] ([id number]) [address] [place] [address], [address] [place] [address] COMPREHENSIVE METABOLIC PANE [facility] 10-26-2023 Albumin [Mass/Vol] 4.3 g/dL Normal 3.2-5.3 [facility] Comment on above: Performed By: #### P INR, 51709-6, 95066-2, CBCA, 97343-6, CMP, 4548-4, 6873-4 #### [facility] ([id number]) [address] [place] [address] 81236 #### HA1C #### [facility] ([id number]) [address] [place] [address], [address] [place] [address] ALP [Catalytic activity/Vol] 73 U/L Normal 39-130 [facility] Comment on above: Performed By: #### P INR, 32288-1, 77710-2, CBCA, 02547-0, CMP, 4548-4, 6873-4 #### [facility] ([id number]) [address] [place] [address] 63490 #### HA1C #### [facility] ([id number]) [address] [place] [address], [address] [place] [address] ALT [Catalytic activity/Vol] 25 U/L Normal 0-40 [facility] Comment on above: Performed By: #### P INR, 92413-1, 56152-7, CBCA, 50138-0, CMP, 4548-4, 6873-4 #### [facility] ([id number]) [address] [place] [address] 07201 #### HA1C #### [facility] ([id number]) [address], [address] [place] [address] Anion gap [Moles/Vol] 10 mmol/L Normal 5-15 [facility] Comment on above: Performed By: #### P INR, 77936-1, 35993-4, CBCA, 30723-7, CMP, 4548-4, 6873-4 #### [facility] ([id number]) [address] [place] [address] 68046 #### HA1C #### [facility] ([id number]) [address], [address] [place] [address] AST [Catalytic activity/Vol] 19 U/L Normal 0-41 [facility] Comment on above: Performed By: #### P INR, 55456-4, 34218-9, CBCA, 27605-0, CMP, 4548-4, 6873-4 #### [facility] ([id number]) [address] [place] [address] 01154 #### HA1C #### [facility] ([id number]) [address], [address] [place] [address] Bilirubin [Mass/Vol] 0.8 mg/dL Normal 0.3-1.2 [facility] Comment on above: Performed By: #### P INR, 97191-5, 38041-2, CBCA, 12862-9, CMP, 4548-4, 6873-4 #### [facility] ([id number]) [address] [place] [address] 96923 #### HA1C #### [facility] ([id number]) [address], [address] [place] [address] Calcium [Mass/Vol] 9.3 mg/dL Normal 8.5-10.5 [facility] Comment on above: Performed By: #### P INR, 17318-2, 20355-3, CBCA, 87638-0, CMP, 4548-4, 6873-4 #### [facility] ([id number]) [address] [place] [address] 02694 #### HA1C #### [facility] ([id number]) [address], [address] [place] [address] Chloride [Moles/Vol] 94 mmol/L Low 98-109 [facility] Comment on above: Performed By: #### P INR, 38501-7, 63954-6, CBCA, 22281-1, CMP, 4548-4, 6873-4 #### [facility] ([id number]) [address] [place] [address] 36439 #### HA1C #### [facility] ([id number]) [address], [address] [place] [address] CO2 [Moles/Vol] 26 mmol/L Normal 22-32 [facility] Comment on above: Performed By: #### P INR, 44848-6, 67040-0, CBCA, 30496-8, CMP, 4548-4, 6873-4 #### [facility] ([id number]) [address] [place] [address] 16570 #### HA1C #### [facility] ([id number]) [address], [address] [place] [address] Creatinine [Mass/Vol] 1.06 mg/dL Normal 0.70-1.20 [facility] Comment on above: Result Comment: METH OD TRACEABLE TO IDMS STANDARD Performed By: #### P INR, 02882-9, 54980-2, CBCA, 83805-9, CMP, 4548-4, 6873-4 #### [facility] ([id number]) [address] [place] [address] 68165 #### HA1C #### [facility] ([id number]) [address] [facility] [facility] [address] [place] [address] GFR/1.73 sq M.predicted among non-blacks MDRD (S/P/Bld) [Vol rate/Area] 75 mL/min/{1.73_m2} Normal >59 [facility] Comment on above: Result Comment: Reported eGFR is based on the CKD-EPI 2020 equation that does not use a race coefficient. Performed By: #### P INR, 11369-9, 52120-8, CBCA, 20521-4, CMP, 4548-4, 6873-4 #### [facility] ([id number]) [address] [place] [address] 01498 #### HA1C #### [facility] ([id number]) [address] [facility], [address] [place] [address] Glucose [Mass/Vol] 453 mg/dL Critically high 65-99 [facility] Comment on above: Performed By: #### P INR, 46449-9, 72964-8, CBCA, 10161-9, CMP, 4548-4, 6873-4 #### [facility] ([id number]) [address] [place] [address] 06256 #### HA1C #### [facility] ([id number]) [address] [facility], [address] [place] [address] Potassium [Moles/Vol] 4.5 mmol/L Normal 3.5-5.0 [facility] Comment on above: Performed By: #### P INR, 33428-8, 87228-8, CBCA, 80901-9, CMP, 4548-4, 6873-4 #### [facility] ([id number]) [address] [place] [address] 39264 #### HA1C #### [facility] ([id number]) [address] [facility], [address] [place] [address] Protein [Mass/Vol] 7.2 g/dL Normal 6.0-8.0 [facility] Comment on above: Performed By: #### P INR, 06621-8, 93539-1, CBCA, 92054-9, CMP, 4548-4, 6873-4 #### [facility] ([id number]) [address] [place] [address] 95518 #### HA1C #### [facility] ([id number]) [address] [place] [address], [address] [place] [address] Sodium [Moles/Vol] 130 mmol/L Low 134-146 [facility] Comment on above: Performed By: #### P INR, 49731-9, 56386-9, CBCA, 10921-3, CMP, 4548-4, 6873-4 #### [facility] ([id number]) [address] [place] [address] 60793 #### HA1C #### [facility] ([id number]) [address] [place] [address], [address] [place] [address] Urea nitrogen [Mass/Vol] 29 mg/dL High 5-27 [facility] Comment on above: Performed By: #### P INR, 72381-4, 44049-6, CBCA, 31540-5, CMP, 4548-4, 6873-4 #### [facility] ([id number]) [address] [place] [address] 51845 #### HA1C #### [facility] ([id number]) [address] [place] [address], [address] [place] [address] CT BRAIN WO CONTon 3 CT BRAIN [...] Denney MD on 10/26/2023 6:42 PM Normal [facility] DRUG SCREEN, URINEon 023 AMPHETAMINE/METHAMP Negative Normal NEG [facility] Comment on above: Result Comment: AMPH /METH screening cut off = 1000 ng/mL Performed By: #### P INR, 39036-2, 61007-6, CBCA, 97002-2, CMP, 4548-4, 6873-4 #### [facility] ([id number]) [address] [place] [address], [place] [address] #### HA1C #### [facility] ([id number]) [address] [facility], [address] [place] [address] BARBITURATES Negative Normal NEG [facility] Comment on above: Result Comment: Elsie iturates screening cut off value = 200 ng/mL Performed By: #### P INR, 40573-2, 82035-8, CBCA, 53762-8, CMP, 4548-4, 6873-4 #### [facility] ([id number]) [address] [place] [address] 31291 #### HA1C #### [facility] ([id number]) [address], [address] [place] [address] BENZODIAZEPINES Negative Normal NEG [facility] Comment on above: Result Comment: James odiazepines screening cut off value = 200 ng/mL Performed By: #### P INR, 22831-5, 29592-6, CBCA, 79952-4, CMP, 4548-4, 6873-4 #### [facility] ([id number]) [address] [place] [address] 14323 #### HA1C #### [facility] ([id number]) [address] [facility] [place] [address] CANNABINOIDS Negative Normal NEG [facility] Comment on above: Result Comment: Shawn abinoids/THC screening cut off value = 50 ng/mL Performed By: #### P INR, 96730-5, 42891-3, CBCA, 00401-5, CMP, 4548-4, 6873-4 #### [facility] ([id number]) [address] [place] [address] 61231 #### HA1C #### [facility] ([id number]) [address] [facility], [address] [place] [address] COCAINE METABOLITE Negative Normal NEG [facility] Comment on above: Result Comment: Coca ine screening cut off value = 300 ng/mL Performed By: #### P INR, 09839-9, 55609-0, CBCA, 16291-9, CMP, 4548-4, 6873-4 #### [facility] ([id number]) [address] [place] [address] 86985 #### HA1C #### [facility] ([id number]) [address], [address] [place] [address] ECSTASY Negative Normal NEG [facility] Comment on above: Result Comment: Ecst asy screening cut off value = 500 ng/mL This report is intended for use in clinical monitoring or management of patients. Performed By: #### P INR, 76972-1, 78797-4, CBCA, 19023-6, CMP, 4548-4, 6873-4 #### [facility] ([id number]) [address] [place] [address] 33687 #### HA1C #### [facility] ([id number]) [address], [address] [place] [address] METHADONE Negative Normal NEG [facility] Comment on above: Result Comment: Meth adone screening cut off value = 300 ng/mL. Performed By: #### P INR, 44691-0, 54187-2, CBCA, 67746-6, CMP, 4548-4, 6873-4 #### [facility] ([id number]) [address] [place] [address] 06252 #### HA1C #### [facility] ([id number]) [address], [address] [place] [address] OPIATES Negative Normal NEG [facility] Comment on above: Result Comment: Opia yanira screening cut off value = 300 ng/mL NOTE: This test is used for the detection of codeine, hydrocodone (>1000 ng/mL), morphine and hydromorphone (>900 ng/mL) in urine. Performed By: #### P INR, 65675-2, 95991-6, CBCA, 64691-0, CMP, 4548-4, 6873-4 #### [facility] ([id number]) [address] [place] [address] 97708 #### HA1C #### [facility] ([id number]) [address], [address] [place] [address] OXYCODONE Negative Normal NEG [facility] Comment on above: Result Comment: Oxyc odone screening cut off value = 300 ng/mL NOTE: This test is used for the detection of oxycodone and oxymorphone in urine. Performed By: #### P INR, 63757-8, 45994-1, CBCA, 09159-5, CMP, 4548-4, 6873-4 #### [facility] ([id number]) [address] [place] [address] 12286 #### HA1C #### [facility] ([id number]) [address] [facility], [address] [place] [address] PHENCYCLIDINE Negative Normal NEG [facility] Comment on above: Result Comment: Phen cyclidine screening cut off value = 25 ng/mL Performed By: #### P INR, 67129-0, 59621-4, CBCA, 44788-7, CMP, 4548-4, 6873-4 #### [facility] ([id number]) [address] [place] [address] 54916 #### HA1C #### [facility] ([id number]) [address] [facility] [place] [address] Glucose Glucometer (BldC) [M ass/Vol]on 10-26-2023 Glucose [Mass/Vol] 286 mg/dL High 65-99 [facility] Glucose [Mass/Vol] 385 mg/dL High 65-99 [facility] HA1C CONFIRMATION - NO CHARG Ian 10-26-2023 HbA1c (Bld) [Mass fraction] 15.3 % High <=5.6 [facility] Comment on above: Result Comment: NOTE INTERPRETIVE INFORMATION: Hemoglobin A1c HbA1c values of 5.7-6.4 percent indicate an increased risk for developing diabetes mellitus. HbA1c values greater than or equal to 6.5 percent are diagnostic of diabetes mellitus. For diagnosis of diabetes in individuals without unequivocal hyperglycemia, results should be confirmed by repeat testing. Performed By: #### P INR, 88732-1, 28419-8, CBCA, 52704-5, CMP, 4548-4, 6873-4 #### [facility] ([id number]) [address] [place] [address] #### HA1C #### [facility] ([id number]) [address] [facility] [address] [place] [address] HGB A1C (GLYCO-HGB)on 2022 AVERAGE GLUCOSE >398 Normal [facility] Comment on above: Performed By: #### P INR, 24930-9, 11500-8, CBCA, 81769-2, CMP, 4548-4, 6873-4 #### [facility] ([id number]) [address] [place] [address] #### HA1C #### [facility] ([id number]) [address] [facility] [address] [place] [address] HbA1c (Bld) [Mass fraction] % High 4.4-5.6 [facility] Comment on above: Result Comment: NOTE ADA Guidelines Result HgbA1c Normal : less than 5.7 % Prediabetes : 5.7 % to 6.4 % Diabetes : > 6.4 % Use with caution in patients with abnormal hemoglobin variants as the half-life of red blood cells and in vivo glycation rates are affected. Performed By: #### P INR, 49099-1, 58108-2, CBCA, 94279-9, CMP, 4548-4, 6873-4 #### [facility] ([id number]) [address] [place] [address] #### HA1C #### [facility] ([id number]) [address] [facility] [address] [place] [address] HbA1c (Bld) [Mass fraction]o n 10-26-2023 Glucose [Mass/Vol] 392 mg/dL Normal [facility] Comment on above: Result Comment: NOTE Performed By: [employer] [address] [place] [address] [employer]: Aramis Taylor MD, PhD CLIA Number: [id number] Performed By: #### P INR, 68907-9, 33308-3, CBCA, 89135-7, CMP, 4548-4, 6873-4 #### [facility] ([id number]) [address] [place] [address] #### HA1C #### [facility] ([id number]) [address] [place] [address], [address] [place] [address] MAGNESIUMon 10-26-2023 Magnesium [Mass/Vol] 1.6 mg/dL Low 1.8-2.6 [facility] Comment on above: Performed By: #### P INR, 98786-5, 05039-7, CBCA, 43748-2, CMP, 4548-4, 6873-4 #### [facility] ([id number]) [address] [place] [address] #### HA1C #### [facility] ([id number]) [address] [place] [address], [address] [place] [address] PROTIME AND INRon 10-26-2023 INR Coag (PPP) [Relative time] 1.0 {INR} Normal 0.8-1.1 [facility] Comment on above: Performed By: #### P INR, 60163-7, 15465-5, CBCA, 51936-4, CMP, 4548-4, 6873-4 #### [facility] ([id number]) [address] [place] [address] #### HA1C #### [facility] ([id number]) [address] [place] [address], [address] [place] [address] PT Coag (PPP) [Time] 11.4 s Normal 9.8-13.2 [facility] Comment on above: Result Comment: NEW REFERENCE RANGE Performed By: #### P INR, 86815-9, 39673-5, CBCA, 13261-3, CMP, 4548-4, 6873-4 #### [facility] ([id number]) [address] [place] [address] #### HA1C #### [facility] ([id number]) [address], [address] [place] [address] TROPONIN Ion 10-26-2023 Troponin I.cardiac [Mass/Vol] 0.01 ng/mL Normal 0.00-0.04 [facility] Comment on above: Performed By: #### P INR, 89403-8, 38577-9, CBCA, 59834-4, CMP, 4548-4, 6873-4 #### [facility] ([id number]) [address] [place] [address] 29948 #### HA1C #### [facility] ([id number]) [address], [address] [place] [address] URN MACROSCOPIC NURon 2022 BILIRUBIN ALLYN Negative Normal NEG [facility] Comment on above: Performed By: #### P INR, 44354-7, 40139-3, CBCA, 71546-3, CMP, 4548-4, 6873-4 #### [facility] ([id number]) [address] [place] [address] 92190 #### HA1C #### [facility] ([id number]) [address], [address] [place] [address] BLOOD/HGB ALLYN Trace Abnormal NEG [facility] Comment on above: Performed By: #### P INR, 62312-0, 08734-4, CBCA, 60765-5, CMP, 4548-4, 6873-4 #### [facility] ([id number]) [address] [place] [address]3659 #### HA1C #### [facility] ([id number]) [address] [place] [address] GLUCOSE ALLYN >=1000 Abnormal NEG [facility] Comment on above: Performed By: #### P INR, 23794-6, 00439-5, CBCA, 15002-1, CMP, 4548-4, 6873-4 #### [facility] ([id number]) [address] [place] [address] 033[address] #### HA1C #### [facility] ([id number]) [address], [address] [place] [address] KETONES ALLYN 40 mg/dL Abnormal NEG [facility] Comment on above: Performed By: #### P INR, 88937-5, 74569-8, CBCA, 38974-7, CMP, 4548-4, 6873-4 #### [facility] ([id number]) [address] [place] [address] 22529 #### HA1C #### [facility] ([id number]) [address], [address] [place] [address] LEUKOCYTE ESTERASE ALLYN Negative Normal NEG [facility] Comment on above: Performed By: #### P INR, 70958-1, 70258-8, CBCA, 30142-9, CMP, 4548-4, 6873-4 #### [facility] ([id number]) [address] [place] [address]91 #### HA1C #### [facility] ([id number]) [address], [address] [place] [address] NITRITE ALLYN Negative Normal NEG [facility] Comment on above: Performed By: #### P INR, 43061-4, 77678-4, CBCA, 81987-4, CMP, 4548-4, 6873-4 #### [facility] ([id number]) [address] [place] [address] 05485 #### HA1C #### [facility] ([id number]) [address], [address] [place] [address] PH ALLYN 5.5 Normal 5.0-8.5 [facility] Comment on above: Performed By: #### P INR, 72323-2, 42073-9, CBCA, 54430-5, CMP, 4548-4, 6873-4 #### [facility] ([id number]) [address] [place] [address] 12411 #### HA1C #### [facility] ([id number]) [address] [place] [address], [address] [place] [address] PROTEIN ALLYN Negative Normal NEG [facility] Comment on above: Performed By: #### P INR, 38569-1, 80391-5, CBCA, 84152-9, CMP, 4548-4, 6873-4 #### [facility] ([id number]) [address] [place] [address] #### HA1C #### [facility] ([id number]) [address] [place] [address], [address] [place] [address] SPECIFIC GRAVITY ALLYN 1.010 Normal 1.003-1.035 [facility] Comment on above: Performed By: #### P INR, 49995-6, 62672-2, CBCA, 37659-9, CMP, 4548-4, 6873-4 #### [facility] ([id number]) [address] [place] [address] #### HA1C #### [facility] ([id number]) [address] [place] [address], [address] [place] [address] UROBILINOGEN ALLYN 0.2 eu/dL Normal <1.1 [facility] Comment on above: Performed By: #### P INR, 02873-1, 84992-6, CBCA, 53736-2, CMP, 4548-4, 6873-4 #### [facility] ([id number]) [address] [place] [address] #### HA1C #### [facility] ([id number]) [address] [place] [address] VENOUS BLOOD GASon 3 MICHELLE'S TEST Normal [facility] Comment on above: Performed By: #### V BG #### [facility] ([id number]) [address] [place] [address] Base excess Calc (Bld) [Moles/Vol] 0.0 mmol/L Normal 0.0-2.0 [facility] Comment on above: Performed By: #### V BG #### [facility] ([id number]) [address] [place] [address] Body temperature 98.6 [degF] Normal 37.0 [facility] Comment on above: Performed By: #### V BG #### [facility] ([id number]) [address] [place] [address] HCO3 (Bld) [Moles/Vol] 25.3 mmol/L High 20.0-24.0 [facility] Comment on above: Performed By: #### V BG #### [facility] ([id number]) [address] [place] [address] Oxygen saturation in Blood 73.0 % Low >80.0 [facility] Comment on above: Performed By: #### V BG #### [facility] ([id number]) [address] [place] [address] OXYGEN SOURCE [employer] Normal [facility] Comment on above: Performed By: #### V BG #### [facility] ([id number]) [address] [place] [address] PCO2, VENOUS 41.3 MMHG Normal 35-50 [facility] Comment on above: Performed By: #### V BG #### [facility] ([id number]) [address] [place] [address] PH, VENOUS 7.396 Normal 7.320-7.420 [facility] Comment on above: Performed By: #### V BG #### [facility] ([id number]) [address] [place] [address] PO2, VENOUS 39 MMHG Normal 30-50 [facility] Comment on above: Performed By: #### V BG #### [facility] ([id number]) [address] [place] [address] SAMPLE SITE N/A Normal [facility] Comment on above: Performed By: #### V BG #### [facility] ([id number]) [address] [place] [address] 48073 SAMPLE TYPE VENOUS Normal [facility] Comment on above: Performed By: #### V BG #### [facility] ([id number]) [address] [place] [address] 12757 XR CHEST 1 VWon 10-26-2023 XR CHEST [...] Keyes MD on 10/26/2023 6:36 PM Normal [facility] aPTT Coag (PPP) [Time]on aPTT Coag (Bld) [Time] 34 s Normal 26-37 [facility] Comment on above: Result Comment: NEW REFERENCE RANGE Performed By: #### P INR, 56676-4, 53489-4, CBCA, 94658-4, CMP, 4548-4, 6873-4 #### [facility] ([id number]) [address], [place] [address] #### HA1C #### [facility] ([id number]) [address], [address] [place] [address] Vital Signs Date Time Vital Sign Value Performing Clinician Facility 03-31-2024 10:20-0400 Body height 180.34 cm [facility] 03-31-2024 10:20-0400 Body mass index (BMI) [Ratio] 34.9 kg/m2 [facility] 03-31-2024 10:20-0400 Body weight 113.53 kg [facility] 03-31-2024 10:20-0400 Diastolic blood pressure 73 mm[Hg] [facility] 03-31-2024 10:20-0400 Heart rate 79 /min [facility] 03-31-2024 10:20-0400 Respiratory rate 16 /min [facility] 03-31-2024 10:20-0400 Systolic blood pressure 149 mm[Hg] [facility] 03-26-2024 10:56-0400 Body height 180.34 cm [facility] 03-26-2024 10:56-0400 Body mass index (BMI) [Ratio] 34.9 kg/m2 [facility] 03-26-2024 10:56-0400 Body weight 113.62 kg [facility] 03-26-2024 10:56-0400 Diastolic blood pressure 81 mm[Hg] [facility] 03-26-2024 10:56-0400 Heart rate 86 /min [facility] 03-26-2024 10:56-0400 Respiratory rate 20 /min [facility] 03-26-2024 10:56-0400 Systolic blood pressure 157 mm[Hg] [facility] 01-23-2024 10:33-0400 Body height 180.34 cm [facility] 01-23-2024 10:33-0400 Body mass index (BMI) [Ratio] 36.1 kg/m2 [facility] 01-23-2024 10:33-0400 Body weight 117.65 kg [facility] 01-23-2024 10:33-0400 Diastolic blood pressure 69 mm[Hg] [facility] 01-23-2024 10:33-0400 Heart rate 71 /min [facility] 01-23-2024 10:33-0400 Respiratory rate 20 /min [facility] 01-23-2024 10:33-0400 Systolic blood pressure 159 mm[Hg] [facility] 12-30-2023 10:35-0500 Body height 177.8 cm Klaus Yeboah MD Work Phone: [facility] 12-30-2023 10:35-0500 Body mass index (BMI) [Ratio] 35.01 kg/m2 Klaus Yeboah MD Work Phone: [facility] 12-30-2023 10:35-0500 Body weight 110.68 kg Klaus Yeboah MD Work Phone: [facility] 12-11-2023 11:41-0500 Body height 177.8 cm Alexis Rojas MD Work Phone: [facility] 12-11-2023 11:41-0500 Body mass index (BMI) [Ratio] 35.01 kg/m2 Alexis Rojas MD Work Phone: [facility] 12-11-2023 11:41-0500 Body weight 110.68 kg Alexis Rojas MD Work Phone: [facility] 12-11-2023 11:41-0500 Diastolic blood pressure 73 mm[Hg] Alexis Rojas MD Work Phone: [facility] 12-11-2023 11:41-0500 Heart rate 90 /min Alexis Rojas MD Work Phone: [facility] 12-11-2023 11:41-0500 Systolic blood pressure 126 mm[Hg] Alexis Rojas MD Work Phone: [facility] 11-26-2023 10:45-0500 Body height 180.34 cm Vinnie Garza Other [facility] 11-26-2023 10:45-0500 Body mass index (BMI) [Ratio] 35.31 kg/m2 Vinnie Ball Other [facility] Other 11-26-2023 10:45-0500 Body weight 114.85 kg Vinnie Ball Other [facility] Other 11-26-2023 10:45-0500 Body weight 114.84 kg [facility] 11-26-2023 10:45-0500 Diastolic blood pressure 80 mm[Hg] Vinnie Ball Other [facility] 11-26-2023 10:45-0500 Respiratory rate 16 /min Vinnie Ball Other [facility] Other 11-26-2023 10:45-0500 Systolic blood pressure 132 mm[Hg] Vinnie Ball Other [facility] Encounters Encounter Date Encounter Type Care Provider Facility [facility]: [facility] Start: 06-05-2024 ambulatory [facility] Start: 06-05-2024 Encounter for other preprocedural examination SARAH [facility] Start: 06-05-2024 End: 06-11-2024 Evaluation and management of inpatient [facility] Start: 06-05-2024 End: 06-12-2024 Emergency department patient visit PATRIA SOLOMON [facility] Start: 05-27-2024 End: 06-01-2024 Evaluation and management of inpatient [facility] Start: 05-13-2024 End: 05-13-2024 ambulatory [facility] Start: 05-12-2024 End: 05-13-2024 Emergency department patient visit BROOK SIMMS [facility] Start: 04-13-2024 End: 04-13-2024 ambulatory VINNIE Santos [facility] Start: 04-10-2024 End: 04-21-2024 Evaluation and management of inpatient MIRNA F AYDEE [facility] Start: 04-09-2024 End: 04-11-2024 Emergency department patient visit YUDELKA PARIKH [facility] Start: 04-09-2024 End: 04-10-2024 ambulatory [facility] Start: 03-31-2024 End: 03-31-2024 ambulatory [facility] Work Phone: Start: 03-31-2024 End: 03-31-2024 Patient encounter procedure [facility] Work Phone: Start: 03-29-2024 End: 04-26-2024 ambulatory [facility] Start: 03-26-2024 End: 03-26-2024 ambulatory [facility] Work Phone: Start: 03-26-2024 End: 03-26-2024 Patient encounter procedure [facility] Work Phone: Start: 02-13-2024 End: 03-27-2024 ambulatory [facility] Start: 02-12-2024 End: 02-12-2024 ambulatory [facility] Start: 02-04-2024 End: 02-04-2024 ambulatory JASON RODRIGUEZ Not Available Start: 01-23-2024 End: 01-23-2024 ambulatory [facility] Work Phone: Start: 01-23-2024 End: 01-23-2024 Patient encounter procedure [facility] Work Phone: Start: 12-30-2023 End: 12-30-2023 Office outpatient new 30 minutes Klaus Yeboah MD Work Phone: [facility] Comment on above: Arthritis of right k nee (Primary Dx); Right knee pain, unspecified chronicity Start: 12-30-2023 End: 12-30-2023 ambulatory KLAUS YEBOAH [facility] Start: 12-11-2023 End: 12-11-2023 Office outpatient visit 25 minutes Alexis Rojas MD Work Phone: [facility] Comment on above: Sequelae, post-strok e (Primary Dx); Cerebrovascular accident (CVA) due to thrombosis of precerebral artery ([facility]); Type 2 diabetes mellitus with hyperglycemia, with long-term current use of insulin ([facility]); Transient alteration of awareness; Mixed hyperlipidemia; Blurred vision; Gait instability Start: 12-11-2023 End: 12-11-2023 ambulatory [facility] Start: 12-01-2023 End: 12-01-2023 ambulatory Vinnie Garza Other [facility] Other Start: 12-01-2023 Telephone encounter Vinnie SUAZO [facility] Start: 11-26-2023 End: 11-26-2023 ambulatory Vinnie Garza Other [facility] Other Start: 11-26-2023 Office outpatient vi sit 25 minutes Vinnie Garza [facility] Start: 11-26-2023 Telephone encounter Vinnie SUAZO [facility] Start: 11-26-2023 End: 11-26-2023 Patient encounter procedure [facility] Start: 11-17-2023 Telephone encounter [facility] Start: 11-05-2023 End: 11-05-2023 ambulatory VINNIE [facility] Start: 10-31-2023 Orders Only Alysha Gilbert RN [facility] Comment on above: Cerebrovascular acci dent (CVA) due to thrombosis of precerebral artery (CMS-HCC) (Primary Dx); Other cerebrovascular vasospasm and vasoconstriction Start: 10-28-2023 End: 10-30-2023 ambulatory [facility] Start: 10-28-2023 End: 10-30-2023 ambulatory [facility] Start: 10-28-2023 End: 10-30-2023 ambulatory HAMMAD PATEL [facility] Start: 10-26-2023 End: 10-30-2023 Emergency department patient visit SARAH [facility] Start: 10-26-2023 End: 10-29-2023 Evaluation and management of inpatient SARAH [facility] Start: 05-09-[address] VINNIE [...] Adult BMI Screening Adult BMI Screen ing [facility] Start: 12-29-2024 Tobacco Screening Tobacco Screening [facility] Start: 12-11-2024 Adult BMI Screening Adult BMI Screen ing [facility] Start: 12-11-2024 Depression Screening Depression Scre ening [facility] Start: 12-11-2024 Tobacco Screening Tobacco Screening [facility] Start: 10-29-2024 Adult BMI Screening Adult BMI Screen ing [facility] Start: 10-26-2024 Tobacco Screening Tobacco Screening [facility] Start: 03-11-2024 End: 03-11-2024 Patient encounter procedure 03/11/2024 3:30 PM EDT Office Visit [facility] [address] [place] [phone] Alexis Rojas MD [address] [place] [address], [address] [place] [phone] [facility] Start: 12-11-2023 End: 12-11-2023 Patient encounter procedure 12/11/2023 11:30 AM EST Office Visit [facility] [address] [place] [phone] Alexis Rojas MD [address] [place] [address], [address] [place] [phone] [facility] Start: 12-04-2023 End: 12-04-2023 Patient encounter procedure 12/04/2023 9:00 AM EST Office Visit [facility] [address] [place] [phone] Ally Larson MD [address] [place] [address] [facility] Start: 10-31-2023 End: 10-31-2024 Event Monitor (In Office) MELANY DRAKE Work Phone: Comment on above: Expected: 10/31/2023 , Expires: 10/31/2024 Start: 06-27-2023 Influenza vaccination Influenza Vacc ine [facility] Start: 2018 Fall Risk Screening Fall Risk Screen ing [facility] Start: 05-02-2017 Urine screening for protein Urine Microalbumin [facility] Start: 2003 Administration of varicella zoster vaccine Zoster (Shingles) Vaccine (1 of 2) [facility] Start: 1972 DTaP,Tdap and Td Vaccines (1 - Tdap) DTaP,Tdap and Td Vaccines (1 - Tdap) [facility] Start: 1971 Adult BMI Follow Up Plan Adult BMI Follow Up Plan [facility] Start: 1971 Diabetic foot examination Diabetic Foot Exam [facility] Start: 1965 Depression Screening Depression Scre ening [employer] [employer] [facility] Start: 1953 Glaucoma screening Diabetic Op hthalmology Exam [facility] Start: 1953 Medicare Annual Well ness Visit Medicare Annual Wellness Visit [employer] [facility] Start: 1953 Tobacco Counseling Tobacco Counselin g [employer] End: 12-29-2024 Large Joint Injection/Arthrocentesis - PA Large Joint Injection/Arthrocentesi s - PA Procedures Routine Right knee pain, unspecified chronicity Arthritis of right knee 1 Occurrences starting 12/30/2023 until 12/29/2024 [employer] Work Phone: Comment on above: 1 Occurrences starti ng 12/30/2023 until 12/29/2024 End: 12-29-2024 Nicotine screen, urine Nicotine screen, urine Lab Routine Arthritis of right knee 1 Occurrences starting 12/30/2023 until 12/29/2024 [employer] Comment on above: 1 Occurrences starti ng 12/30/2023 until 12/29/2024 [facility] Immunizations Immunization Date Immunization Notes Care Provider Fortino rouse 07-08-2018 influenza virus vaccine, split virus (incl. purified surface antigen) Vinnie Garza Other [facility] Other 07-08-2018 influenza virus vaccine, unspecified formulation [facility] Payers Date Payer Category Payer Medicare [employer] MEDICARE A ETNA MEDICARE PLAN (PPO) [id number] 2021-Present [phone] [address] [place] [address] [id number] 2021 Medicare [id number] 1959 Self-pay 1953 Unknown [id number] 2.16.840.1.967544.3.579.2.593 1953 Unknown [id number] 2.16.840.1.234773.3.579.2.593 1953 Unknown [id number] 2.16.840.1.599832.3.579.2.1259 1953 Unknown [id number] 2.16.840.1.206848.3.579.2.6 1953 Unknown [id number] 2.16.840.1.233314.3.579.2.128 1953 Unknown [id number] 2.16.840.1.979369.3.579.2.128 1953 Unknown [id number] 2.16.840.1.180582.3.579.2.1285 1953 Unknown [id number] 2.16.840.1.002239.3.579.2.1285 1953 Unknown [id number] 2.16.840.1.468882.3.579.2.1285 1953 Unknown [id number] 2.16.840.1.741909.3.579.2.128 1953 Unknown [id number] 2.16.840.1.370290.3.579.2.1285 1953 Unknown [id number] 2.16.840.1.856791.3.579.2.1285 1953 Unknown [id number] 2.16.840.1.870326.3.579.2.1285 1953 Unknown [id number] 2.16.840.1.560023.3.579.2.128 1953 Unknown [id number] 2.16.840.1.438311.3.579.2.1285 1953 Unknown [id number] 2.16.840.1.936748.3.579.2.128 1953 Unknown [id number] 2.16.840.1.823015.3.579.2.128 1953 Unknown [id number] 2.16.840.1.698304.3.579.2.1286 1953 Unknown [id number] 2.16.840.1.283164.3.579.2.1285 1953 Unknown [id number] 2.16.840.1.731924.3.579.2.1285 1953 Unknown [id number] 2.16.840.1.633784.3.579.2.1285 1953 Unknown [id number] 2.16.840.1.908906.3.579.2.1285 1953 Unknown [id number] 2.16.840.1.389503.3.579.2.1285 1953 Unknown [id number] 2.16.840.1.626074.3.579.2.1285 1953 Unknown [id number] 2.16.840.1.874340.3.579.2.1285 1953 Unknown [id number] 2.16.840.1.986082.3.579.2.1285 1953 Unknown [id number] 2.16.840.1.633057.3.579.2.1285 1953 Unknown [id number] 2.16.840.1.489191.3.579.2.1285 1953 Unknown [id number] 2.16.840.1.153895.3.579.2.1285 1953 Unknown [id number] 2.16.840.1.467424.3.579.2.1285 1953 Unknown [id number] 2.16.840.1.914042.3.579.2.1285 1953 Unknown [id number] 2.16.840.1.223010.3.579.2.1285 1953 Unknown [id number] 2.16.840.1.580688.3.579.2.1286 1953 Unknown [id number] 2.16.840.1.036917.3.579.2.1286 1953 Unknown [id number] 2.16.840.1.765830.3.579.2.1286 1953 Unknown [id number] 2.16.840.1.226100.3.579.2.1286 1953 Unknown [id number] 2.16.840.1.009078.3.579.2.1286 1953 Unknown [id number] 2.16.840.1.852255.3.579.2.1286 1953 Unknown [id number] 2.16.840.1.233624.3.579.2.1286 Medicare [id number] 2.16.840.1.771386.19 Unknown [id number] 2..840.1.986794.19 Social History Date Type Detail Facility Start: 10-26-2023 [facility] History of tobacco use Cigarette Smoker P [facility] Start: 10-26-2023 Tobacco use and exposure Smoke less tobacco non-user [facility] Start: 10-26-2023 End: 12-30-2023 Alcohol intake Ex-drinker (finding) [facility] Start: 12-07-2020 End: 10-26-2023 History of Social function [facility] Start: 12-07-2020 End: 10-26-2023 Tobacco use panel [facility] Housing Instability Unknown [facility] Start: 1955 Sex Assigned At Not on file P [facility] Start: 1955 Sex Assigned At Male F [facility] Goals Date Patient Goal Desired [...] note were not included. Vashti Rivera 1955 [id number] Last encounter with me: Visit date not [...] Medical History: Diagnosis Date Arthritis Cataract Diabetes ([facility]) Diabetes mellitus type 2, controlled ([facility]) Fractures Past Surgical History: Procedure Laterality Date [...] of the aforementioned history prepared by the [facility] provider, and I personally performed the clinical examination of the patient. I discussed the treatment plan with the patient. I have updated the above note prior to signing to reflect my evaluation of the patients condition and treatment plan. Other significant notes are as follows: Vashti is a very nice 68 y.o. male [...] hip xrays.. Klaus Yeboah MD Adult Reconstruction [facility] [address] [place] [address], [address] W: [phone] F: [phone] documented in this encounter [facility] 12-11-2023 History of Present illness Narrative Reason [...] Medical History: Diagnosis Date Arthritis Cataract Diabetes ([facility]) Diabetes mellitus type 2, controlled ([facility]) Fractures Past Surgical History Past Surgical History: [...] hyperglycemia, with long-term current use of insulin ([facility]) Cerebrovascular accident (CVA) due to thrombosis ([facility]) Mixed hyperlipidemia Sequelae, post-stroke Gait instability Status [...] in 3 months. documented [facility] this [facility] Evaluation note Encounter Date Diagnosis Assessment Notes Nov, Type 2 diabetes mellitus with hyperglycemia (ICD-10 - E11.65) [facility] Other 01-31-2024 Evaluation note* Encounter Date Diagnosis Assessment Notes Treatment Notes Treatment Clinical Notes Oct, Type 2 diabetes mellitus with hyperglycemia (ICD-10 - E11.65) [facility] Other 01-31-2024 Evaluation note* Encounter Date Diagnosis [...] and elevate XR to r/o Fx Oct, half-way (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 insulin (ICD-10 - Z79.4) Oct, Hx of cerebral infar ction (ICD-10 - Z86.73) [facility] Other 01-22-2024 Miscellaneous Notes* Telephone Encounter - Alysha Gilbert RN - 11/17/2023 10:06 AM EST From Steve: Sunni, This message is in reference to the below patient: Patient Name: VASHTI RIVERA Date of : 1955 This is to notify Dr KONG GALLGEOS that the enrollment for the aforementioned patient has beencancelled due to no contact. We contacted the patient regularly, but they failed to return our calls or activate on their own. We apologize for any inconvenience, if you have questions or concerns please contact us at . Thank you and have a wonderful day. Sincerely, Your Patient Services Outbound Team [facility] Telephone encounter Note* Telephone Encounter - Alysha [...] day. Sincerely, Your Patient Services Outbound Team [facility] Diagnosis Cerebrovascular accident (CVA) due to thrombosis of precerebral artery ([facility] Primary Other cerebrovascular vasospasm and vasoconstriction [facility]* Diagnosis Sequelae, post-stroke- Primary Cerebrovascular accident (CVA) due to thrombosis of precerebral artery ([facility]) Type 2 diabetes mellitus with hyperglycemia, with long-term current use of insulin ([facility]) Transient alteration of awareness Mixed hyperlipidemia Blurred vision Other specified visual disturbances Gait instability Abnormality of gait documented in this encounter [facility]* Diagnosis Arthritis of right knee- Primary Right knee pain, unspecified chronicity Right knee pain, unspecified chronicity [facility] Diagnosis Onset Date Resolution Status Cerebral atherosclerosis acu te Cigarette nicotine dependence without complication acute Hypercholesterolemia acute Primary hypertension acute Type 2 diabetes mellitus with hyperglycemia acute [facility] Work Phone: Evaluation note* Diagnosis Onset Date Resolution Status Cerebral atherosclerosis acu te Cigarette nicotine dependence without complication acute Hypercholesterolemia acute Primary hypertension acute Primary osteoarthritis of right knee acute Type 2 diabetes mellitus with hyperglycemia acute Cerebral atherosclerosis acu te Cigarette nicotine dependence without complication acute Hypercholesterolemia acute Primary hypertension acute Type 2 diabetes mellitus with hyperglycemia acute [facility] Work Phone: Evaluation note* Diagnosis [...] Type 2 diabetes mellitus with hyperglycemia acute [facility] Work Phone: History general Narrative - Reported* Type Description Date Medical History Cerebral atherosclerosis Medical History Hypercholesterolemia Medical History Primary hypertension Medical History Cigarette nicotine dependence wi thout complication Surgical History Tonsillectomy Surgical History Right Shoulder Surgery Surgical History Left TKA 2010 Surgical History Right Knee Arthroscopy x2 Surgical History 2: cataracts Surgical History ORIF Right Wrist Hospitalization History see surgical history [facility] Other InstructionsNot on filedocumented in this encounter [facility] SystemInstructionsNot on filedocumented in this encounter [facility] SystemInstructionsNot on filedocumented in this encounter [facility] SystemReason for visit NarrativeDiabetic education/XR results [facility] Other Summary Purpose Family History No Family [...] Referral Specialty Diagnoses / Procedures Referred By Contac t Referred To Contact Diagnoses Cerebrovascular accident (CVA) due to thrombosis of precerebral artery (CMS-HCC) Other cerebrovascular vasospasm and vasoconstriction Procedures Event Monitor (In Office) Kong Gallegos APRN-CNP [address] [place] [address] [address] [place] [address] Referral ID Status Reason Start Date Expiration Date V isits Requested Visits Authorized [id number] Pending Review 10/31/2023 10/30/2024 1 1 Specialty Diagnoses / Procedures Referred By Contac t Referred To Contact Rehabilitation Diagnoses Cerebrovascular accident (CVA) due to thrombosis of precerebral artery (CMS-HCC) Sequelae, post-stroke Gait instability Alexis Rojas MD [address] [place] [address], [address] [place] [address] Referral ID Status Reason Start Date Expiration Date Visits Requested Visits Authorized [id number] Pending Review Specialty Services Required 12/11/2023 12/10/2024 1 1 Specialty Diagnoses / Procedures Referred By Contac t Referred To Contact Rehabilitation Diagnoses Arthritis of right knee Klaus Yeboah MD [address] [facility] [place] [address] Referral ID Status Reason Start Date Expiration Date Visits Requested Visits Authorized [id number] Pending Review Specialty Services Required 12/30/2023 12/29/2024 1 1 Specialty Diagnoses / Procedures Referred By Contac t Referred To Contact Diagnoses Right knee pain, unspecified chronicity Arthritis of right knee Procedures Large Joint Injection/Arthrocentesis - Klaus Lou MD [address] [place] [address] [facility] [place] [id number] [place] [address] Referral ID Status Reason Start Date Expiration Date V isits Requested Visits Authorized [id number] Pending Review 12/30/2023 12/29/2024 1 1 Chief [...] section and content) DATE CREATED AUTHOR 05/16/2022 [facility] DATE CREATED AUTHOR AUTHOR'S ORGANIZ ATION 02/05/2024 [facility] EP[facility] DATE CREATED AUTHOR AUTHOR'S ORGANIZ ATION 06/02/2024 [facility] DATE CREATED AUTHOR AUTHOR'S ORGANIZ ATION 06/12/2024 [facility] DATE CREATED AUTHOR AUTHOR'S ORGANIZ ATION 06/16/2024 [facility] Care Teams (unrecognized sec tion and content) Manufacturer'S Representative Relationship Specialty [place] [address] [place] [phone] PCP - General Internal Medicine 10/26/23 Manufacturer'S Representative Relationship Specialty Start [place] [address] [place] [id number] PCP - General Internal Medicine 10/26/23 Manufacturer'S Representative Relationship Specialty Start Date End Date Vinnie Garza DO [address] [place] [address] PCP - General Internal Medicine 10/26/23 Manufacturer'S Representative Relationship Specialty Start Date End Date Vinnie Garza DO [address] [place] [address] PCP - General Internal Medicine 10/26/23 Team [...] BE BASED ON THE PRIMARY CLINICAL RECORDS. [employer] [facility]. provides no warranty or guarantee of the accuracy or completeness of information in this document.
== END 2024-07-14 12:47 | disposition home or self-care (01) ==
LOC: CARD 12:47
PROVIDERS: PCP Internal Medicine; Visit Provider Internal Medicine
DX: R55 Syncope and collapse (principal)
CPT/HCPCS: 93246

== ENCOUNTER 2024-08-12 07:36 | Outpatient (OUT) | payer MEDICARE, SELFPAY ==
--- OUTSIDE RECORDS SUMMARY | 2024-08-12 07:40 | XMS_ITS | CCD ---
Author Organization [facility] Care Team Providers Care Bonding Supervisor Name Role Phone MUKESH, DR BUSH Primary [...] Care Unavailable TAWANNA, EHAD Attending Unavailable BALL, VINNIE E Referring Unavailable BALL, VINNIE E Primary Care Unavailable YADEE, MIRNA F Admitting Unavailable AYDEE, MIRNA F Attending Unavailable EMILIA JEFFREY Referring Unavailable BALL, VINNIE E Primary Care Unavailable [facility], [facility] Consulting Unavailable [...] 30 tablet 1 10/29/2023 Active Blood-Glucose Meter,Continuous ([employer]style Kathie 3 [place]) misc (2 sources) Start: 03-01-2024 Blood-Glucose Meter,Continuous ([employer] Kathie 3 [place]) misc Active 0 .Route 1 March 01, [...] March 26, 2024 12:00am [employer] Kathie [address] [place] - (4 sources) Start: 11-26-2023 [employer] Kathie 2 [place] - Use to test home BS transcutaneous [...] evening meal for 90 *Pick strength-form from [employer] for eRX* 07 Jun, 2021 Not-Taking/PRN NovoLIN [...] evening meal for 30 *Pick strength-form from [employer] for eRX* 15 Jul, 2020 Not-Taking/PRN pravastatin [...] sources) Long-term current use of insulin; 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] Episodic Other aftercare (4 sources) 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; 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] Onset: 10-28-2023 Episodic [...] Anion gap [Moles/Vol] 9 mmol/L Normal 5-15 [facility] Comment on above: Performed By: #### C BCA, CMP #### [facility] ([id number]) [address], [address] [place] [address] Calcium [Mass/Vol] 9.2 mg/dL Normal 8.5-10.5 [facility] Comment on above: Performed By: #### C BCA, CMP #### [facility] ([id number]) [address], [address] [place] [address] Chloride [Moles/Vol] 97 mmol/L Low 98-109 [facility] Comment on above: Performed By: #### C BCA, CMP #### [facility] ([id number]) [address], [address] [place] [address] CO2 [Moles/Vol] 29 mmol/L Normal 22-32 [facility] Comment on above: Performed By: #### C BCA, CMP #### [facility] ([id number]) [address], [address] [place] [address] Creatinine [Mass/Vol] 0.54 mg/dL Low 0.60-1.30 [facility] Comment on above: Result Comment: METH OD TRACEABLE TO IDMS STANDARD Performed By: #### C BCA, CMP #### [facility] ([id number]) [address] [address] [place] [address] eGFR (CKD-EPI) NON-RACE DEPENDENT >90 Normal >59 [facility] Comment on above: Result Comment: Reported eGFR is based on the CKD-EPI 2020 equation that does not use a race coefficient. Performed By: #### C BCA, CMP #### [facility] ([id number]) [address], [address] [place] [address] Glucose [Mass/Vol] 158 mg/dL High 65-99 [facility] Comment on above: Performed By: #### C BCA, CMP #### [facility] ([id number]) [address] [place] [address] Potassium [Moles/Vol] 4.2 mmol/L Normal 3.5-5.0 [facility] Comment on above: Performed By: #### C BCA, CMP #### [facility] ([id number]) [address] [place] [address] Sodium [Moles/Vol] 135 mmol/L Normal 134-146 [facility] Comment on above: Performed By: #### C BCA, CMP #### [facility] ([id number]) [address], [address] [place] [address] Urea nitrogen [Mass/Vol] 20 mg/dL Normal 5-27 [facility] Comment on above: Performed By: #### C BCA, CMP #### [facility] ([id number]) [address], [address] [place] [address] CBC AND AUTO DIFFon 0816-20 24 ABSOLUTE BASOPHIL 0.1 X10E9/L Normal 0.0-0.2 [facility] Comment on above: Performed By: #### C BCA, CMP #### [facility] ([id number]) [address], [address] [place] [address] ABSOLUTE NEUTROPHIL 2.8 X10E9/L Normal 1.5-6.6 [facility] Comment on above: Performed By: #### C BCA, CMP #### [facility] ([id number]) [address], [address] [place] [address] Basophils/100 WBC (Bld) 1.2 % Normal P [facility] Comment on above: Performed By: #### C BCA, CMP #### [facility] ([id number]) [address], [address] [place] [address] Eosinophils (Bld) [#/Vol] 0.1 10*3/uL Normal 0.0-0.4 [facility] Comment on above: Performed By: #### C BCA, CMP #### [facility] ([id number]) [address] [place] [address] Eosinophils/100 WBC (Bld) 2.1 % Normal [facility] Comment on above: Performed By: #### C BCA, CMP #### [facility] ([id number]) [address], [address] [place] [address] Erythrocyte distribution width (RBC) [Ratio] 15.6 % High 11.5-15.0 [facility] Comment on above: Performed By: #### C BCA, CMP #### [facility] ([id number]) [address], [address] [place] [address] Hematocrit (Bld) [Volume fraction] 34.3 % Low 39-49 [facility] Comment on above: Performed By: #### C BCA, CMP #### [facility] ([id number]) [address], [address] [place] [address] Hemoglobin (Bld) [Mass/Vol] 11.6 g/dL Low 13.0-17.0 [facility] Comment on above: Performed By: #### C BCA, CMP #### [facility] ([id number]) [address] [address] [place] [address] Lymphocytes (Bld) [#/Vol] 1.0 10*3/uL Normal 1.0-3.5 [facility] Comment on above: Performed By: #### C BCA, CMP #### [facility] ([id number]) [address], [address] [place] [address] Lymphocytes/100 WBC (Bld) 23.1 % Normal [facility] Comment on above: Performed By: #### C BCA, CMP #### [facility] ([id number]) [address], [address] [place] [address] MCH (RBC) [Entitic mass] 27.1 pg Normal 27-34 [facility] Comment on above: Performed By: #### C BCA, CMP #### [facility] ([id number]) [address], [address] [place] [address] MCHC (RBC) [Mass/Vol] 33.9 g/dL Normal 32-36 [facility] Comment on above: Performed By: #### C BCA, CMP #### [facility] ([id number]) [address], [address] [place] [address] MCV (RBC) [Entitic vol] 80 fL Normal 80-100 P [facility] Comment on above: Performed By: #### C BCA, CMP #### [facility] ([id number]) [address] [place] [address] Monocytes (Bld) [#/Vol] 0.4 10*3/uL Normal 0-0.9 [facility] Comment on above: Performed By: #### C BCA, CMP #### [facility] ([id number]) [address] [place] [address] Monocytes/100 WBC (Bld) 9.6 % Normal P [facility] Comment on above: Performed By: #### C BCA, CMP #### [facility] ([id number]) [address] [place] [address] Neutrophils/100 WBC (Bld) 64.0 % Normal [facility] Comment on above: Performed By: #### C BCA, CMP #### [facility] ([id number]) [address], [address] [place] [address] Platelet mean volume (Bld) [Entitic vol] 7.0 fL Normal 7-12 [facility] Comment on above: Performed By: #### C ZACHARY, CMP #### [facility] ([id number]) [address], [address] [place] [address] Platelets (Bld) [#/Vol] 284 10*3/uL Normal 150-450 [facility] Comment on above: Performed By: #### C ZACHARY, CMP #### [facility] ([id number]) [address], [address] [place] [address] RBC COUNT 4.29 X10E12/L Normal 4.10-5.70 [facility] Comment on above: Performed By: #### Thais SHARMA, CMP #### [facility] ([id number]) [address], [address] [place] [address] WBC (Bld) [#/Vol] 4.4 10*3/uL Normal 4.0-11.0 [facility] Comment on above: Performed By: #### C ZACHARY, CMP #### [facility] ([id number]) [address], [address] [place] [address] Glucose Glucometer (dC) [M ass/Vol]on 06-11-2024 Glucose [Mass/Vol] 220 mg/dL High 65-99 [facility] Glucose [Mass/Vol] 210 mg/dL High 65-99 [facility] Glucose [Mass/Vol] 245 mg/dL High 65-99 [facility] Glucose [Mass/Vol] 164 mg/dL High 65-99 [facility] BASIC METABOLIC PANLon 06-10 Anion gap [Moles/Vol] 10 mmol/L Normal 5-15 [facility] Comment on above: Performed By: #### C ZACHARY, CMP #### [facility] ([id number]) [address], [address] [place] [address] Calcium [Mass/Vol] 9.3 mg/dL Normal 8.5-10.5 [facility] Comment on above: Performed By: #### C BCA, CMP #### [facility] ([id number]) [address], [address] [place] [address] Chloride [Moles/Vol] 96 mmol/L Low 98-109 [facility] Comment on above: Performed By: #### C BCA, CMP #### [facility] ([id number]) [address], [address] [place] [address] CO2 [Moles/Vol] 28 mmol/L Normal 22-32 [facility] Comment on above: Performed By: #### C BCA, CMP #### [facility] ([id number]) [address] [address] [place] [address] Creatinine [Mass/Vol] 0.58 mg/dL Low 0.60-1.30 [facility] Comment on above: Result Comment: METH OD TRACEABLE TO IDMS STANDARD Performed By: #### C BCA, CMP #### [facility] ([id number]) [address], [address] [place] [address] eGFR (CKD-EPI) NON-RACE DEPENDENT >90 Normal >59 [facility] Comment on above: Result Comment: Reported eGFR is based on the CKD-EPI 2020 equation that does not use a race coefficient. Performed By: #### C BCA, CMP #### [facility] ([id number]) [address], [address] [place] [address] Glucose [Mass/Vol] 173 mg/dL High 65-99 [facility] Comment on above: Performed By: #### C BCA, CMP #### [facility] ([id number]) [address], [address] [place] [address] Potassium [Moles/Vol] 4.1 mmol/L Normal 3.5-5.0 [facility] Comment on above: Performed By: #### C BCA, CMP #### [facility] ([id number]) [address] [address] [place] [address] Sodium [Moles/Vol] 134 mmol/L Normal 134-146 [facility] Comment on above: Performed By: #### C BCA, CMP #### [facility] ([id number]) [address] [address] Urea nitrogen [Mass/Vol] 18 mg/dL Normal 5-27 [facility] Comment on above: Performed By: #### C BCA, CMP #### [facility] ([id number]) [address] [address] CBC AND AUTO DIFFon 06-10-20 24 ABSOLUTE BASOPHIL 0.0 X10E9/L Normal 0.0-0.2 [facility] Comment on above: Performed By: #### C BCA, CMP #### [facility] ([id number]) [address] [address] ABSOLUTE NEUTROPHIL 2.6 X10E9/L Normal 1.5-6.6 [facility] Comment on above: Performed By: #### C BCA, CMP #### [facility] ([id number]) [address] [address] Basophils/100 WBC (Bld) 1.0 % Normal [facility] Comment on above: Performed By: #### C BCA, CMP #### [facility] ([id number]) [address] [address] Eosinophils (Bld) [#/Vol] 0.1 10*3/uL Normal 0.0-0.4 [facility] Comment on above: Performed By: #### C BCA, CMP #### [facility] ([id number]) [address], [address] [place] [address] Eosinophils/100 WBC (Bld) 1.9 % Normal [facility] Comment on above: Performed By: #### C BCA, CMP #### [facility] ([id number]) [address], [address] [place] [address] Erythrocyte distribution width (RBC) [Ratio] 15.8 % High 11.5-15.0 [facility] Comment on above: Performed By: #### C ZACHARY, CMP #### [facility] ([id number]) [address], [address] [place] [address] Hematocrit (Bld) [Volume fraction] 34.3 % Low 39-49 [facility] Comment on above: Performed By: #### C ZACHARY, CMP #### [facility] ([id number]) [address], [address] [place] [address] Hemoglobin (Bld) [Mass/Vol] 11.3 g/dL Low 13.0-17.0 [facility] Comment on above: Performed By: #### C ZACHARY, CMP #### [facility] ([id number]) [address], [address] [place] [address] Lymphocytes (Bld) [#/Vol] 1.1 10*3/uL Normal 1.0-3.5 [facility] Comment on above: Performed By: #### C BCA, CMP #### [facility] ([id number]) [address], [address] [place] [address] Lymphocytes/100 WBC (Bld) 26.6 % Normal [facility] Comment on above: Performed By: #### C BCA, CMP #### [facility] ([id number]) [address], [address] [place] [address] MCH (RBC) [Entitic mass] 26.4 pg Low 27-34 [facility] Comment on above: Performed By: #### C BCA, CMP #### [facility] ([id number]) [address], [address] [place] [address] MCHC (RBC) [Mass/Vol] 32.8 g/dL Normal 32-36 [facility] Comment on above: Performed By: #### C BCA, CMP #### [facility] ([id number]) [address] [place] [address] MCV (RBC) [Entitic vol] 80 fL Normal 80-100 P [facility] Comment on above: Performed By: #### C BCA, CMP #### [facility] ([id number]) [address], [address] [place] [address] Monocytes (Bld) [#/Vol] 0.4 10*3/uL Normal 0-0.9 [facility] Comment on above: Performed By: #### C BCA, CMP #### [facility] ([id number]) [address], [address] [place] [address] Monocytes/100 WBC (Bld) 8.2 % Normal [facility] Comment on above: Performed By: #### C BCA, CMP #### [facility] ([id number]) [address], [address] [place] [address] Neutrophils/100 WBC (Bld) 62.3 % Normal [facility] Comment on above: Performed By: #### C BCA, CMP #### [facility] ([id number]) [address] [place] [address] Platelet mean volume (Bld) [Entitic vol] 7.0 fL Normal 7-12 [facility] Comment on above: Performed By: #### C BCA, CMP #### [facility] ([id number]) [address], [address] [place] [address] Platelets (Bld) [#/Vol] 290 10*3/uL Normal 150-450 [facility] Comment on above: Performed By: #### C ZACHARY, CMP #### [facility] ([id number]) [address], [address] [place] [address] RBC COUNT 4.26 X10E12/L Normal 4.10-5.70 [facility] Comment on above: Performed By: #### C ZACHARY, CMP #### [facility] ([id number]) [address] [place] [address] WBC (Bld) [#/Vol] 4.3 10*3/uL Normal 4.0-11.0 [facility] Comment on above: Performed By: #### C ZACHARY, CMP #### [facility] ([id number]) [address] [place] [address] Glucose Glucometer (dC) [M ass/Vol]on 06-10-2024 Glucose [Mass/Vol] 258 mg/dL High 65-99 [facility] Glucose [Mass/Vol] 272 mg/dL High 65-99 [facility] Glucose [Mass/Vol] 275 mg/dL High 65-99 [facility] Glucose [Mass/Vol] 175 mg/dL High 65-99 [facility] Glucose [Mass/Vol] 168 mg/dL High 65-99 [facility] Glucose [Mass/Vol] 181 mg/dL High 65-99 [facility] BASIC METABOLIC PANLon 06-09 Anion gap [Moles/Vol] 8 mmol/L Normal 5-15 [facility] Comment on above: Performed By: #### C BCA, CMP #### [facility] ([id number]) [address] [place] [address] Calcium [Mass/Vol] 8.9 mg/dL Normal 8.5-10.5 [facility] Comment on above: Performed By: #### C BCA, CMP #### [facility] ([id number]) [address], [address] [place] [address] Chloride [Moles/Vol] 98 mmol/L Normal 98-109 [facility] Comment on above: Performed By: #### C BCA, CMP #### [facility] ([id number]) [address] [place] [address] CO2 [Moles/Vol] 29 mmol/L Normal 22-32 [facility] Comment on above: Performed By: #### C BCA, CMP #### [facility] ([id number]) [address] [address] [place] [address] Creatinine [Mass/Vol] 0.51 mg/dL Low 0.60-1.30 [facility] Comment on above: Result Comment: METH OD TRACEABLE TO IDMS STANDARD Performed By: #### C BCA, CMP #### [facility] ([id number]) [address] [place] [address] eGFR (CKD-EPI) NON-RACE DEPENDENT >90 Normal >59 [facility] Comment on above: Result Comment: Reported eGFR is based on the CKD-EPI 2020 equation that does not use a race coefficient. Performed By: #### C BCA, CMP #### [facility] ([id number]) [address] [place] [address] Glucose [Mass/Vol] 174 mg/dL High 65-99 [facility] Comment on above: Performed By: #### C BCA, CMP #### [facility] ([id number]) [address] [address] [place] [address] Potassium [Moles/Vol] 4.2 mmol/L Normal 3.5-5.0 [facility] Comment on above: Performed By: #### C BCA, CMP #### [facility] ([id number]) [address] [place] [address] Sodium [Moles/Vol] 135 mmol/L Normal 134-146 [facility] Comment on above: Performed By: #### C BCA, CMP #### [facility] ([id number]) [address] [place] [address] Urea nitrogen [Mass/Vol] 13 mg/dL Normal 5-27 [facility] Comment on above: Performed By: #### C BCA, CMP #### [facility] ([id number]) [address] [address] [place] [address] CBC AND AUTO DIFFon 06-09-20 24 ABSOLUTE BASOPHIL 0.1 X10E9/L Normal 0.0-0.2 [facility] Comment on above: Performed By: #### C BCA, CMP #### [facility] ([id number]) [address] [address] [place] [address] ABSOLUTE NEUTROPHIL 2.4 X10E9/L Normal 1.5-6.6 [facility] Comment on above: Performed By: #### C BCA, CMP #### [facility] ([id number]) [address] [address] Basophils/100 WBC (Bld) 1.4 % Normal [facility] Comment on above: Performed By: #### C BCA, CMP #### [facility] ([id number]) [address], [facility] [address] [place] [address] Eosinophils (Bld) [#/Vol] 0.1 10*3/uL Normal 0.0-0.4 [facility] Comment on above: Performed By: #### C BCA, CMP #### [facility] ([id number]) [address] [address] Eosinophils/100 WBC (Bld) 3.1 % Normal [facility] Comment on above: Performed By: #### C BCA, CMP #### [facility] ([id number]) [address], [address] [place] [address] Erythrocyte distribution width (RBC) [Ratio] 16.2 % High 11.5-15.0 [facility] Comment on above: Performed By: #### C ZACHARY, CMP #### [facility] ([id number]) [address] [place] [address] Hematocrit (Bld) [Volume fraction] 33.5 % Low 39-49 [facility] Comment on above: Performed By: #### C ZACHARY, CMP #### [facility] ([id number]) [address] [place] [address] Hemoglobin (Bld) [Mass/Vol] 11.3 g/dL Low 13.0-17.0 [facility] Comment on above: Performed By: #### C ZACHARY, CMP #### [facility] ([id number]) [address] [place] [address] Lymphocytes (Bld) [#/Vol] 1.2 10*3/uL Normal 1.0-3.5 [facility] Comment on above: Performed By: #### C ZACHARY, CMP #### [facility] ([id number]) [address] [place] [address] Lymphocytes/100 WBC (Bld) 28.7 % Normal [facility] Comment on above: Performed By: #### C ZACHARY, CMP #### [facility] ([id number]) [address] [place] [address] MCH (RBC) [Entitic mass] 27.0 pg Normal 27-34 [facility] Comment on above: Performed By: #### C BCA, CMP #### [facility] ([id number]) [address] [place] [address] MCHC (RBC) [Mass/Vol] 33.6 g/dL Normal 32-36 [facility] Comment on above: Performed By: #### C BCA, CMP #### [facility] ([id number]) [address] [place] [address] MCV (RBC) [Entitic vol] 80 fL Normal 80-100 [facility] Comment on above: Performed By: #### C BCA, CMP #### [facility] ([id number]) [address] [place] [address] Monocytes (Bld) [#/Vol] 0.3 10*3/uL Normal 0-0.9 [facility] Comment on above: Performed By: #### C BCA, CMP #### [facility] ([id number]) [address] [place] [address] Monocytes/100 WBC (Bld) 7.6 % Normal [facility] Comment on above: Performed By: #### C BCA, CMP #### [facility] ([id number]) [address] [place] [address] Neutrophils/100 WBC (Bld) 59.2 % Normal [facility] Comment on above: Performed By: #### C BCA, CMP #### [facility] ([id number]) [address] [place] [address] Platelet mean volume (Bld) [Entitic vol] 6.9 fL Low 7-12 [facility] Comment on above: Performed By: #### C BCA, CMP #### [facility] ([id number]) [address] [place] [address] Platelets (Bld) [#/Vol] 280 10*3/uL Normal 150-450 [facility] Comment on above: Performed By: #### C BCA, CMP #### [facility] ([id number]) [address] [place] [address] RBC COUNT 4.17 X10E12/L Normal 4.10-5.70 [facility] Comment on above: Performed By: #### C BCA, CMP #### [facility] ([id number]) [address] [place] [address] WBC (Bld) [#/Vol] 4.1 10*3/uL Normal 4.0-11.0 [facility] Comment on above: Performed By: #### C BCA, CMP #### [facility] ([id number]) [address] [place] [address] Glucose Glucometer (BldC) [M ass/Vol]on 06-09-2024 Glucose [Mass/Vol] 215 mg/dL High 65-99 [facility] Glucose [Mass/Vol] 217 mg/dL High 65-99 [facility] BASIC METABOLIC PANLon 06-08 Anion gap [Moles/Vol] 9 mmol/L Normal 5-15 [facility] Comment on above: Performed By: #### C BCA, CMP #### [facility] ([id number]) [address], [address] [place] [address] Calcium [Mass/Vol] 8.7 mg/dL Normal 8.5-10.5 [facility] Comment on above: Performed By: #### C BCA, CMP #### [facility] ([id number]) [address], [address] [place] [address] Chloride [Moles/Vol] 99 mmol/L Normal 98-109 [facility] Comment on above: Performed By: #### C BCA, CMP #### [facility] ([id number]) [address], [address] [place] [address] CO2 [Moles/Vol] 27 mmol/L Normal 22-32 [facility] Comment on above: Performed By: #### C BCA, CMP #### [facility] ([id number]) [address], [address] [place] [address] Creatinine [Mass/Vol] 0.64 mg/dL Normal 0.60-1.30 [facility] Comment on above: Result Comment: METH OD TRACEABLE TO IDMS STANDARD Performed By: #### C BCA, CMP #### [facility] ([id number]) [address], [address] [place] [address] eGFR (CKD-EPI) NON-RACE DEPENDENT >90 Normal >59 [facility] Comment on above: Result Comment: Reported eGFR is based on the CKD-EPI 2020 equation that does not use a race coefficient. Performed By: #### C BCA, CMP #### [facility] ([id number]) [address], [address] [place] [address] Glucose [Mass/Vol] 166 mg/dL High 65-99 [facility] Comment on above: Performed By: #### C BCA, CMP #### [facility] ([id number]) [address] [address] [place] [address] Potassium [Moles/Vol] 4.2 mmol/L Normal 3.5-5.0 [facility] Comment on above: Performed By: #### C BCA, CMP #### [facility] ([id number]) [address], [address] [place] [address] Sodium [Moles/Vol] 135 mmol/L Normal 134-146 [facility] Comment on above: Performed By: #### C BCA, CMP #### [facility] ([id number]) [address], [address] [place] [address] Urea nitrogen [Mass/Vol] 16 mg/dL Normal 5-27 [facility] Comment on above: Performed By: #### C BCA, CMP #### [facility] ([id number]) [address] [address] [place] [address] CBC AND AUTO DIFFon 06-08-20 24 ABSOLUTE BASOPHIL 0.1 X10E9/L Normal 0.0-0.2 [facility] Comment on above: Performed By: #### C BCA, CMP #### [facility] ([id number]) [address], [address] [place] [address] ABSOLUTE NEUTROPHIL 3.8 X10E9/L Normal 1.5-6.6 [facility] Comment on above: Performed By: #### C ZACHARY, CMP #### [facility] ([id number]) [address] [place] [address] Basophils/100 WBC (Bld) 1.1 % Normal [facility] Comment on above: Performed By: #### C ZACHARY, CMP #### [facility] ([id number]) [address] [place] [address] Eosinophils (Bld) [#/Vol] 0.1 10*3/uL Normal 0.0-0.4 [facility] Comment on above: Performed By: #### C ZACHARY, CMP #### [facility] ([id number]) [address], [address] [place] [address] Eosinophils/100 WBC (Bld) 1.6 % Normal [facility] Comment on above: Performed By: #### C ZACHARY, CMP #### [facility] ([id number]) [address] [place] [address] Erythrocyte distribution width (RBC) [Ratio] 15.4 % High 11.5-15.0 [facility] Comment on above: Performed By: #### C BCA, CMP #### [facility] ([id number]) [address], [address] [place] [address] Hematocrit (Bld) [Volume fraction] 32.3 % Low 39-49 [facility] Comment on above: Performed By: #### C BCA, CMP #### [facility] ([id number]) [address] [place] [address] Hemoglobin (Bld) [Mass/Vol] 10.8 g/dL Low 13.0-17.0 [facility] Comment on above: Performed By: #### C BCA, CMP #### [facility] ([id number]) [address] [place] [address] Lymphocytes (Bld) [#/Vol] 1.2 10*3/uL Normal 1.0-3.5 [facility] Comment on above: Performed By: #### C ZACHARY, CMP #### [facility] ([id number]) [address] [place] [address] Lymphocytes/100 WBC (Bld) 21.2 % Normal [facility] Comment on above: Performed By: #### C BCA, CMP #### [facility] ([id number]) [address] [place] [address] MCH (RBC) [Entitic mass] 26.9 pg Low 27-34 [facility] Comment on above: Performed By: #### C BCA, CMP #### [facility] ([id number]) [address] [place] [address] MCHC (RBC) [Mass/Vol] 33.3 g/dL Normal 32-36 [facility] Comment on above: Performed By: #### C BCA, CMP #### [facility] ([id number]) [address] [place] [address] MCV (RBC) [Entitic vol] 81 fL Normal 80-100 P [facility] Comment on above: Performed By: #### C BCA, CMP #### [facility] ([id number]) [address], [address] [place] [address] Monocytes (Bld) [#/Vol] 0.3 10*3/uL Normal 0-0.9 [facility] Comment on above: Performed By: #### C BCA, CMP #### [facility] ([id number]) [address], [address] [place] [address] Monocytes/100 WBC (Bld) 5.8 % Normal P [facility] Comment on above: Performed By: #### C BCA, CMP #### [facility] ([id number]) [address] [place] [address] Neutrophils/100 WBC (Bld) 70.3 % Normal [facility] Comment on above: Performed By: #### C BCA, CMP #### [facility] ([id number]) [address], [address] [place] [address] Platelet mean volume (Bld) [Entitic vol] 7.1 fL Normal 7-12 [facility] Comment on above: Performed By: #### C BCA, CMP #### [facility] ([id number]) [address] [place] [address] Platelets (Bld) [#/Vol] 269 10*3/uL Normal 150-450 [facility] Comment on above: Performed By: #### C BCA, CMP #### [facility] ([id number]) [address] [place] [address] RBC COUNT 4.00 X10E12/L Low 4.10-5.70 [facility] Comment on above: Performed By: #### C BCA, CMP #### [facility] ([id number]) [address], [address] [place] [address] WBC (Bld) [#/Vol] 5.5 10*3/uL Normal 4.0-11.0 [facility] Comment on above: Performed By: #### C BCA, CMP #### [facility] ([id number]) [address], [address] [place] [address] Glucose Glucometer (BldC) [M ass/Vol]on 06-08-2024 Glucose [Mass/Vol] 175 mg/dL High 65-99 [facility] Glucose [Mass/Vol] 239 mg/dL High 65-99 [facility] BASIC METABOLIC PANLon 06-07 Anion gap [Moles/Vol] 9 mmol/L Normal 5-15 [facility] Comment on above: Performed By: #### C BCA, CMP #### [facility] ([id number]) [address] [address] Calcium [Mass/Vol] 8.7 mg/dL Normal 8.5-10.5 [facility] Comment on above: Performed By: #### C BCA, CMP #### [facility] ([id number]) [address] [address] Chloride [Moles/Vol] 100 mmol/L Normal 98-109 [facility] Comment on above: Performed By: #### C BCA, CMP #### [facility] ([id number]) [address], [address] [address] CO2 [Moles/Vol] 26 mmol/L Normal 22-32 [facility] Comment on above: Performed By: #### C BCA, CMP #### [facility] ([id number]) [address] [address] Creatinine [Mass/Vol] 0.63 mg/dL Normal 0.60-1.30 [facility] Comment on above: Result Comment: METH OD TRACEABLE TO IDMS STANDARD Performed By: #### C BCA, CMP #### [facility] ([id number]) [address] [address] eGFR (CKD-EPI) NON-RACE DEPENDENT >90 Normal >59 [facility] Comment on above: Result Comment: Reported eGFR is based on the CKD-EPI 2020 equation that does not use a race coefficient. Performed By: #### C BCA, CMP #### [facility] ([id number]) [address], [address] [place] [address] Glucose [Mass/Vol] 161 mg/dL High 65-99 [facility] Comment on above: Performed By: #### C BCA, CMP #### [facility] ([id number]) [address], [address] [place] [address] Potassium [Moles/Vol] 4.2 mmol/L Normal 3.5-5.0 [facility] Comment on above: Performed By: #### C BCA, CMP #### [facility] ([id number]) [address] [address] [place] [address] Sodium [Moles/Vol] 135 mmol/L Normal 134-146 [facility] Comment on above: Performed By: #### C BCA, CMP #### [facility] ([id number]) [address] [address] [place] [address] Urea nitrogen [Mass/Vol] 15 mg/dL Normal 5-27 [facility] Comment on above: Performed By: #### C BCA, CMP #### [facility] ([id number]) [address] [address] [place] [address] CBC AND AUTO DIFFon 12 24 ABSOLUTE BASOPHIL 0.1 X10E9/L Normal 0.0-0.2 [facility] Comment on above: Performed By: #### C BCA, CMP #### [facility] ([id number]) [address] [address] [place] [address] ABSOLUTE NEUTROPHIL 4.2 X10E9/L Normal 1.5-6.6 [facility] Comment on above: Performed By: #### C BCA, CMP #### [facility] ([id number]) [address] [address] [place] [address] Basophils/100 WBC (Bld) 1.0 % Normal P [facility] Comment on above: Performed By: #### C BCA, CMP #### [facility] ([id number]) [address] [place] [address] Eosinophils (Bld) [#/Vol] 0.1 10*3/uL Normal 0.0-0.4 [facility] Comment on above: Performed By: #### C BCA, CMP #### [facility] ([id number]) [address] [address] [place] [address] Eosinophils/100 WBC (Bld) 1.5 % Normal [facility] Comment on above: Performed By: #### C BCA, CMP #### [facility] ([id number]) [address] [address] [place] [address] Erythrocyte distribution width (RBC) [Ratio] 15.7 % High 11.5-15.0 [facility] Comment on above: Performed By: #### C BCA, CMP #### [facility] ([id number]) [address] [address] [place] [address] Hematocrit (Bld) [Volume fraction] 32.5 % Low 39-49 [facility] Comment on above: Performed By: #### C BCA, CMP #### [facility] ([id number]) [address] [address] [place] [address] Hemoglobin (Bld) [Mass/Vol] 10.8 g/dL Low 13.0-17.0 [facility] Comment on above: Performed By: #### C BCA, CMP #### [facility] ([id number]) [address] [address] [place] [address] Lymphocytes (Bld) [#/Vol] 1.2 10*3/uL Normal 1.0-3.5 [facility] Comment on above: Performed By: #### C BCA, CMP #### [facility] ([id number]) [address] [place] [address] Lymphocytes/100 WBC (Bld) 19.6 % Normal [facility] Comment on above: Performed By: #### C BCA, CMP #### [facility] ([id number]) [address] [place] [address] MCH (RBC) [Entitic mass] 26.8 pg Low 27-34 [facility] Comment on above: Performed By: #### C BCA, CMP #### [facility] ([id number]) [address] [place] [address] MCHC (RBC) [Mass/Vol] 33.3 g/dL Normal 32-36 [facility] Comment on above: Performed By: #### C BCA, CMP #### [facility] ([id number]) [address] [place] [address] MCV (RBC) [Entitic vol] 81 fL Normal 80-100 P [facility] Comment on above: Performed By: #### C BCA, CMP #### [facility] ([id number]) [address] [place] [address] Monocytes (Bld) [#/Vol] 0.4 10*3/uL Normal 0-0.9 [facility] Comment on above: Performed By: #### C BCA, CMP #### [facility] ([id number]) [address] [place] [address] Monocytes/100 WBC (Bld) 6.8 % Normal P [facility] Comment on above: Performed By: #### C BCA, CMP #### [facility] ([id number]) [address] [place] [address] Neutrophils/100 WBC (Bld) 71.1 % Normal [facility] Comment on above: Performed By: #### C BCA, CMP #### [facility] ([id number]) [address] [place] [address] Platelet mean volume (Bld) [Entitic vol] 7.0 fL Normal 7-12 [facility] Comment on above: Performed By: #### C BCA, CMP #### [facility] ([id number]) [address] [place] [address] Platelets (Bld) [#/Vol] 276 10*3/uL Normal 150-450 [facility] Comment on above: Performed By: #### C ZACHARY, CMP #### [facility] ([id number]) [address] [place] [address] RBC COUNT 4.03 X10E12/L Low 4.10-5.70 [facility] Comment on above: Performed By: #### C BCA, CMP #### [facility] ([id number]) [address], [address] [place] [address] WBC (Bld) [#/Vol] 5.9 10*3/uL Normal 4.0-11.0 [facility] Comment on above: Performed By: #### C BCA, CMP #### [facility] ([id number]) [address], [address] [place] [address] Glucose Glucometer (BldC) [M ass/Vol]on 06-07-2024 Glucose [Mass/Vol] 187 mg/dL High 65-99 [facility] Glucose [Mass/Vol] 182 mg/dL High 65-99 [facility] Glucose [Mass/Vol] 233 mg/dL High 65-99 [facility] Glucose [Mass/Vol] 153 mg/dL High 65-99 [facility] BASIC METABOLIC PANLon 06-06 Anion gap [Moles/Vol] 10 mmol/L Normal 5-15 [facility] Comment on above: Performed By: #### C BCA, CMP #### [facility] ([id number]) [address] [place] [address] Calcium [Mass/Vol] 8.5 mg/dL Normal 8.5-10.5 [facility] Comment on above: Performed By: #### C BCA, CMP #### [facility] ([id number]) [address] [place] [address] Chloride [Moles/Vol] 103 mmol/L Normal 98-109 [facility] Comment on above: Performed By: #### C BCA, CMP #### [facility] ([id number]) [address] [place] [address] CO2 [Moles/Vol] 22 mmol/L Normal 22-32 [facility] Comment on above: Performed By: #### C BCA, CMP #### [facility] ([id number]) [address] [place] [address] Creatinine [Mass/Vol] 0.55 mg/dL Low 0.60-1.30 [facility] Comment on above: Result Comment: METH OD TRACEABLE TO IDMS STANDARD Performed By: #### C BCA, CMP #### [facility] ([id number]) [address] [address] [place] [address] eGFR (CKD-EPI) NON-RACE DEPENDENT >90 Normal >59 [facility] Comment on above: Result Comment: Reported eGFR is based on the CKD-EPI 1 equation that does not use a race coefficient. Performed By: #### C BCA, CMP #### [facility] ([id number]) [address] [place] [address] Glucose [Mass/Vol] 237 mg/dL High 65-99 [facility] Comment on above: Performed By: #### C BCA, CMP #### [facility] ([id number]) [address] [place] [address] Potassium [Moles/Vol] 3.8 mmol/L Normal 3.5-5.0 [facility] Comment on above: Performed By: #### C ZACHARY, CMP #### [facility] ([id number]) [address] [place] [address] Sodium [Moles/Vol] 135 mmol/L Normal 134-146 [facility] Comment on above: Performed By: #### C ZACHARY, CMP #### [facility] ([id number]) [address] [address] [place] [address] Urea nitrogen [Mass/Vol] 12 mg/dL Normal 5-27 [facility] Comment on above: Performed By: #### C ZACHARY, CMP #### [facility] ([id number]) [address] [address] [place] [address] CBC AND AUTO DIFFon 06-06-20 24 ABSOLUTE BASOPHIL 0.1 X10E9/L Normal 0.0-0.2 [facility] Comment on above: Performed By: #### C ZACHARY, CMP #### [facility] ([id number]) [address] [place] [address] ABSOLUTE NEUTROPHIL 4.6 X10E9/L Normal 1.5-6.6 [facility] Comment on above: Performed By: #### C ZACHARY, CMP #### [facility] ([id number]) [address] [address] Basophils/100 WBC (Bld) 1.0 % Normal P [facility] Comment on above: Performed By: #### C ZACHARY, CMP #### [facility] ([id number]) [address] [address] [place] [address] Eosinophils (Bld) [#/Vol] 0.1 10*3/uL Normal 0.0-0.4 [facility] Comment on above: Performed By: #### C ZACHARY, CMP #### [facility] ([id number]) [address] [place] [address] Eosinophils/100 WBC (Bld) 1.8 % Normal [facility] Comment on above: Performed By: #### C BCA, CMP #### [facility] ([id number]) [address] [place] [address] Erythrocyte distribution width (RBC) [Ratio] 15.7 % High 11.5-15.0 [facility] Comment on above: Performed By: #### C ZACHARY, CMP #### [facility] ([id number]) [address] [place] [address] Hematocrit (Bld) [Volume fraction] 33.0 % Low 39-49 [facility] Comment on above: Performed By: #### C ZACHARY, CMP #### [facility] ([id number]) [address] [place] [address] Hemoglobin (Bld) [Mass/Vol] 11.1 g/dL Low 13.0-17.0 [facility] Comment on above: Performed By: #### C ZACHARY, CMP #### [facility] ([id number]) [address] [place] [address] Lymphocytes (Bld) [#/Vol] 1.1 10*3/uL Normal 1.0-3.5 [facility] Comment on above: Performed By: #### C BCA, CMP #### [facility] ([id number]) [address] [place] [address] Lymphocytes/100 WBC (Bld) 17.4 % Normal [facility] Comment on above: Performed By: #### C BCA, CMP #### [facility] ([id number]) [address] [place] [address] MCH (RBC) [Entitic mass] 27.5 pg Normal 27-34 [facility] Comment on above: Performed By: #### C BCA, CMP #### [facility] ([id number]) [address] [place] [address] MCHC (RBC) [Mass/Vol] 33.8 g/dL Normal 32-36 [facility] Comment on above: Performed By: #### C BCA, CMP #### [facility] ([id number]) [address] [place] [address] MCV (RBC) [Entitic vol] 82 fL Normal 80-100 P [facility] Comment on above: Performed By: #### C BCA, CMP #### [facility] ([id number]) [address] [place] [address] Monocytes (Bld) [#/Vol] 0.4 10*3/uL Normal 0-0.9 [facility] Comment on above: Performed By: #### C BCA, CMP #### [facility] ([id number]) [address] [place] [address] Monocytes/100 WBC (Bld) 5.8 % Normal [facility] Comment on above: Performed By: #### C BCA, CMP #### [facility] ([id number]) [address] [place] [address] Neutrophils/100 WBC (Bld) 74.0 % Normal [facility] Comment on above: Performed By: #### C BCA, CMP #### [facility] ([id number]) [address] [place] [address] Platelet mean volume (Bld) [Entitic vol] 6.9 fL Low 7-12 [facility] Comment on above: Performed By: #### C BCA, CMP #### [facility] ([id number]) [address] [place] [address] Platelets (Bld) [#/Vol] 272 10*3/uL Normal 150-450 [facility] Comment on above: Performed By: #### C BCA, CMP #### [facility] ([id number]) [address] [place] [address] RBC COUNT 4.05 X10E12/L Low 4.10-5.70 [facility] Comment on above: Performed By: #### C BCA, CMP #### [facility] ([id number]) [address] [place] [address] WBC (Bld) [#/Vol] 6.2 10*3/uL Normal 4.0-11.0 [facility] Comment on above: Performed By: #### C BCA, CMP #### [facility] ([id number]) [address] [place] [address] CT BRAIN WO CONTon CT BRAIN WO [...] Beatty MD on 06/06/2024 5:57 AM Normal [facility] Glucose Glucometer (BldC) [M ass/Vol]on 06-06-2024 Glucose [Mass/Vol] 189 mg/dL High 65-99 [facility] Glucose [Mass/Vol] 140 mg/dL High 65-99 [facility] Glucose [Mass/Vol] 129 mg/dL High 65-99 [facility] Glucose [Mass/Vol] 231 mg/dL High 65-99 [facility] AMYLASEon 06-05-2024 Amylase [Catalytic activity/Vol] 30 U/L Normal 28-100 [facility] Comment on above: Performed By: #### C BCA, 94485-8, PINR, 16027-7, 1798-8, CMP, 3040-3, 5643-2 ####[facility] ([id number])[address], [place] [address] CBC AND AUTO DIFFon 06-05-20 24 ABSOLUTE BASOPHIL 0.1 X10E9/L Normal 0.0-0.2 [facility] Comment on above: Performed By: #### C BCA, 47197-1, PINR, 49386-2, 1798-8, CMP, 3040-3, 5643-2 ####[facility] ([id number])[address], [place] [address] ABSOLUTE NEUTROPHIL 4.6 X10E9/L Normal 1.5-6.6 [facility] Comment on above: Performed By: #### C BCA, 82617-5, PINR, 92660-9, 1798-8, CMP, 3040-3, 5643-2 ####[facility] ([id number])[address], [place] [address] Basophils/100 WBC (Bld) 0.9 % Normal [facility] Comment on above: Performed By: #### C BCA, 02091-7, PINR, 54115-7, 1798-8, CMP, 3040-3, 5643-2 ####[facility] ([id number])[address] [address] [place] [address] Eosinophils (Bld) [#/Vol] 0.1 10*3/uL Normal 0.0-0.4 [facility] Comment on above: Performed By: #### C BCA, 28587-4, PINR, 15676-9, 1798-8, CMP, 3040-3, 5643-2 ####[facility] ([id number])[address] [address] Eosinophils/100 WBC (Bld) 2.0 % Normal [facility] Comment on above: Performed By: #### C BCA, 47313-2, PINR, 34655-9, 1797-8, CMP, 3040-3, 5643-2 ####[facility] ([id number])[address] [address] Erythrocyte distribution width (RBC) [Ratio] 15.8 % High 11.5-15.0 [facility] Comment on above: Performed By: #### C BCA, 74005-5, PINR, 17615-7, 1797-8, CMP, 3040-3, 5643-2 ####[facility] ([id number])[address] [address] Hematocrit (Bld) [Volume fraction] 34.5 % Low 39-49 [facility] Comment on above: Performed By: #### C BCA, 67833-1, PINR, 73413-3, 1797-8, CMP, 3040-3, 5643-2 ####[facility] ([id number])[address] [address] Hemoglobin (Bld) [Mass/Vol] 12.0 g/dL Low 13.0-17.0 [facility] Comment on above: Performed By: #### C BCA, 01651-4, PINR, 58454-9, 1798-8, CMP, 3040-3, 5643-2 ####[facility] ([id number])[address], [address] [place] [address] Lymphocytes (Bld) [#/Vol] 1.2 10*3/uL Normal 1.0-3.5 [facility] Comment on above: Performed By: #### C BCA, 90347-9, PINR, 57225-4, 1798-8, CMP, 3040-3, 5643-2 ####[facility] ([id number])[address], [address] [place] [address] Lymphocytes/100 WBC (Bld) 19.6 % Normal [facility] Comment on above: Performed By: #### C BCA, 71556-8, PINR, 94960-4, 1798-8, CMP, 3040-3, 5643-2 ####[facility] ([id number])[address] [address] [place] [address] MCH (RBC) [Entitic mass] 27.7 pg Normal 27-34 [facility] Comment on above: Performed By: #### C BCA, 21602-2, PINR, 66652-4, 179-8, CMP, 3040-3, 5643-2 ####[facility] ([id number])[address] [address] [place] [address] MCHC (RBC) [Mass/Vol] 34.9 g/dL Normal 32-36 [facility] Comment on above: Performed By: #### C BCA, 61155-6, PINR, 75083-4, 1798-8, CMP, 3040-3, 5643-2 ####[facility] ([id number])[address] [address] [place] [address] MCV (RBC) [Entitic vol] 79 fL Low 80-100 P [facility] Comment on above: Performed By: #### C BCA, 68080-2, PINR, 51062-3, 1798-8, CMP, 3040-3, 5643-2 ####[facility] ([id number])[address] [address] Monocytes (Bld) [#/Vol] 0.4 10*3/uL Normal 0-0.9 [facility] Comment on above: Performed By: #### C BCA, 72949-1, PINR, 11559-4, 1797-8, CMP, 3040-3, 5643-2 ####[facility] ([id number])[address], [address] [place] [address] 87203 Monocytes/100 WBC (Bld) 5.6 % Normal P [facility] Comment on above: Performed By: #### C BCA, 94439-6, PINR, 23631-8, 1797-8, CMP, 3040-3, 5643-2 ####[facility] ([id number])[address], [address] [place] [address] 79208 Neutrophils/100 WBC (Bld) 71.9 % Normal [facility] Comment on above: Performed By: #### C BCA, 76876-8, PINR, 68428-1, 1797-8, CMP, 3040-3, 5643-2 ####[facility] ([id number])[address] [address] [place] [address] 70451 Platelet mean volume (Bld) [Entitic vol] 6.8 fL Low 7-12 [facility] Comment on above: Performed By: #### C BCA, 94356-1, PINR, 02076-1, 8-8, CMP, 3040-3, 5643-2 ####[facility] ([id number])[address], [address] [place] [address], [place] [address] Platelets (Bld) [#/Vol] 299 10*3/uL Normal 150-450 [facility] Comment on above: Performed By: #### C BCA, 41561-3, PINR, 14177-9, 1798-8, CMP, 3040-3, 5643-2 ####[facility] ([id number])[address], [address] [place] [address] 33791 RBC COUNT 4.35 X10E12/L Normal 4.10-5.70 [facility] Comment on above: Performed By: #### C BCA, 54983-9, PINR, 95207-5, 1798-8, CMP, 3040-3, 5643-2 ####[facility] ([id number])[address] [address] [place] [address] 12975 WBC (Bld) [#/Vol] 6.4 10*3/uL Normal 4.0-11.0 [facility] Comment on above: Performed By: #### C BCA, 73300-5, PINR, 58474-0, 1798-8, CMP, 3040-3, 5643-2 ####[facility] ([id number])[address] [address] [place] [address]38 COMPREHENSIVE METABOLIC PANE [place] 06-05-2024 Albumin [Mass/Vol] 3.9 g/dL Normal 3.2-5.3 [facility] Comment on above: Performed By: #### C BCA, CMP #### [facility] ([id number]) [address], [address] [place] [address] ALP [Catalytic activity/Vol] 94 U/L Normal 39-130 [facility] Comment on above: Performed By: #### C BCA, CMP #### [facility] ([id number]) [address] [address] [place] [address] ALT [Catalytic activity/Vol] 17 U/L Normal 0-40 [facility] Comment on above: Performed By: #### C BCA, CMP #### [facility] ([id number]) [address] [address] [place] [address] Anion gap [Moles/Vol] 11 mmol/L Normal 5-15 [facility] Comment on above: Performed By: #### C BCA, CMP #### [facility] ([id number]) [address], [address] [place] [address] AST [Catalytic activity/Vol] 13 U/L Normal 0-41 [facility] Comment on above: Performed By: #### C BCA, CMP #### [facility] ([id number]) [address], [address] [place] [address] Bilirubin [Mass/Vol] 0.5 mg/dL Normal 0.3-1.2 [facility] Comment on above: Performed By: #### C BCA, CMP #### [facility] ([id number]) [address], [address] [place] [address] Calcium [Mass/Vol] 8.8 mg/dL Normal 8.5-10.5 [facility] Comment on above: Performed By: #### C BCA, CMP #### [facility] ([id number]) [address], [address] [place] [address] Chloride [Moles/Vol] 101 mmol/L Normal 98-109 [facility] Comment on above: Performed By: #### C BCA, CMP #### [facility] ([id number]) [address], [address] [place] [address] CO2 [Moles/Vol] 25 mmol/L Normal 22-32 [facility] Comment on above: Performed By: #### C BCA, CMP #### [facility] ([id number]) [address], [address] [place] [address] Creatinine [Mass/Vol] 0.54 mg/dL Low 0.60-1.30 [facility] Comment on above: Result Comment: METH OD TRACEABLE TO IDMS STANDARD Performed By: #### C BCA, CMP #### [facility] ([id number]) [address], [address] [place] [address] eGFR (CKD-EPI) NON-RACE DEPENDENT >90 Normal >59 [facility] Comment on above: Result Comment: Reported eGFR is based on the CKD-EPI 2020 equation that does not use a race coefficient. Performed By: #### C BCA, CMP #### [facility] ([id number]) [address] [address] [place] [address] Glucose [Mass/Vol] 146 mg/dL High 65-99 [facility] Comment on above: Performed By: #### C BCA, CMP #### [facility] ([id number]) [address] [address] [place] [address] Potassium [Moles/Vol] 3.9 mmol/L Normal 3.5-5.0 [facility] Comment on above: Performed By: #### C BCA, CMP #### [facility] ([id number]) [address] [address] [place] [address] Protein [Mass/Vol] 6.3 g/dL Normal 6.0-8.0 [facility] Comment on above: Performed By: #### C BCA, CMP #### [facility] ([id number]) [address] [address] [place] [address] Sodium [Moles/Vol] 137 mmol/L Normal 134-146 [facility] Comment on above: Performed By: #### C BCA, CMP #### [facility] ([id number]) [address] [address] [place] [address] Urea nitrogen [Mass/Vol] 13 mg/dL Normal 5-27 [facility] Comment on above: Performed By: #### C BCA, CMP #### [facility] ([id number]) [address] [address] [place] [address] DRUG SCREEN, URINEon 024 AMPHETAMINE/METHAMP Negative Normal NEG [facility] Comment on above: Result Comment: AMPH /METH screening cut off = 1000 ng/mL Performed By: #### C BCA, CMP #### [facility] ([id number]) [address], [address] [place] [address] BARBITURATES Negative Normal NEG [facility] Comment on above: Result Comment: Elsie iturates screening cut off value = 200 ng/mL Performed By: #### C BCA, CMP #### [facility] ([id number]) [address], [address] [place] [address] BENZODIAZEPINES Negative Normal NEG [facility] Comment on above: Result Comment: James odiazepines screening cut off value = 200 ng/mL Performed By: #### C BCA, CMP #### [facility] ([id number]) [address], [address] [place] [address] CANNABINOIDS Negative Normal NEG [facility] Comment on above: Result Comment: Shawn abinoids/THC screening cut off value = 50 ng/mL Performed By: #### C BCA, CMP #### [facility] ([id number]) [address], [address] [place] [address] COCAINE METABOLITE Negative Normal NEG [facility] Comment on above: Result Comment: Coca ine screening cut off value = 300 ng/mL Performed By: #### C BCA, CMP #### [facility] ([id number]) [address], [address] [place] [address] ECSTASY Negative Normal NEG [facility] Comment on above: Result Comment: Ecst asy screening cut off value = 500 ng/mL This report is intended for use in clinical monitoring or management of patients. Performed By: #### C BCA, CMP #### [facility] ([id number]) [address], [address] [place] [address] METHADONE Negative Normal NEG [facility] Comment on above: Result Comment: Meth adone screening cut off value = 300 ng/mL. Performed By: #### C BCA, CMP #### [facility] ([id number]) [address], [address] [place] [address] OPIATES Negative Normal NEG [facility] Comment on above: Result Comment: Opia yanira screening cut off value = 300 ng/mL NOTE: This test is used for the detection of codeine, hydrocodone (>1000 ng/mL), morphine and hydromorphone (>900 ng/mL) in urine. Performed By: #### C BCA, CMP #### [facility] ([id number]) [address], [address] [place] [address] OXYCODONE Negative Normal NEG [facility] Comment on above: Result Comment: Oxyc odone screening cut off value = 300 ng/mL NOTE: This test is used for the detection of oxycodone and oxymorphone in urine. Performed By: #### C BCA, CMP #### [facility] ([id number]) [address] [address] [place] [address] PHENCYCLIDINE Negative Normal NEG [facility] Comment on above: Result Comment: Phen cyclidine screening cut off value = 25 ng/mL Performed By: #### C BCA, CMP #### [facility] ([id number]) [address], [address] [place] [address] ETHANOLon 06-05-2024 Ethanol [Mass/Vol] mg/dL Normal 0.00-0.08 [facility] Comment on above: Result Comment: This report is intended for use in clinical monitoring or management of patients. Performed By: #### C BCA, CMP #### [facility] ([id number]) [address], [address] [place] [address] Fibrinogen Coagulation.deriv ed (PPP) [Mass/Vol]on 06-05-2024 FIBRINOGEN 459 mg/dL Normal 190-480 [facility] Comment on above: Performed By: #### C BCA, 67600-5, PINR, 57929-1, 1798-8, CMP, 3040-3, 5643-2 ####[facility] ([id number])[address], [address], [place] [address] Glucose Glucometer (BldC) [M ass/Vol]on 06-05-2024 Glucose [Mass/Vol] 154 mg/dL High 65-99 [facility] LIPASEon 06-05-2024 Lipase [Catalytic activity/Vol] 35 U/L Normal 11-82 [facility] Comment on above: Performed By: #### C BCA, CMP #### [facility] ([id number]) [address], [address] [place] [address] PROTIME AND INRon 06-05-2024 INR Coag (PPP) [Relative time] 1.1 {INR} Normal 0.8-1.1 [facility] Comment on above: Performed By: #### C BCA, 03627-6, PINR, 44217-6, 8-8, CMP, 3040-3, 5643-2 ####[facility] ([id number])[address], [address] [place] [address]35 PT Coag (PPP) [Time] 12.9 s Normal 9.8-13.2 [facility] Comment on above: Performed By: #### C BCA, 73552-8, PINR, 13482-1, 1798-8, CMP, 3040-3, 5643-2 ####[facility] ([id number])[address], [address], [place] [address] URINALYSISon 06-05-2024 Bilirubin Ql (U) Negative Normal NEG [facility] Comment on above: Performed By: #### C BCA, CMP #### [facility] ([id number]) [address], [address] [place] [address] BLOOD/HGB MODERATE Abnormal NEG [facility] Comment on above: Performed By: #### C BCA, CMP #### [facility] ([id number]) [address], [address] [place] [address] Color (U) YELLOW Normal YELLOW [facility] Comment on above: Performed By: #### C BCA, CMP #### [facility] ([id number]) [address], [address] [place] [address] Glucose Ql (U) Negative Normal NEG [facility] Comment on above: Performed By: #### C BCA, CMP #### [facility] ([id number]) [address], [address] [place] [address] Ketones Ql (U) Negative Normal NEG [facility] Comment on above: Performed By: #### C BCA, CMP #### [facility] ([id number]) [address], [address] [place] [address] Leukocyte esterase Test strip Ql (U) MODERATE Abnormal NEG [facility] Comment on above: Performed By: #### C BCA, CMP #### [facility] ([id number]) [address], [address] [place] [address] MUCOUS PRESENT Abnormal NONE [facility] Comment on above: Performed By: #### C BCA, CMP #### [facility] ([id number]) [address], [address] [place] [address] Nitrite Ql (U) Negative Normal NEG [facility] Comment on above: Performed By: #### C BCA, CMP #### [facility] ([id number]) [address], [address] [place] [address] pH (U) 6.5 [pH] Normal 5.0-8.5 [facility] Comment on above: Performed By: #### C BCA, CMP #### [facility] ([id number]) [address], [address] [place] [address] Protein Ql (U) 30 mg/dL Abnormal NEG [facility] Comment on above: Performed By: #### C BCA, CMP #### [facility] ([id number]) [address] [address] R.B.CELLS 35 /hpf High 0-5 [facility] Comment on above: Performed By: #### C BCA, CMP #### [facility] ([id number]) [address] [address] Specific gravity (U) [Rel density] 1.020 Normal 1.003-1.035 [facility] Comment on above: Performed By: #### C ZACHARY, CMP #### [facility] ([id number]) [address] [address] TURBIDITY CLEAR Normal CLEAR [facility] Comment on above: Performed By: #### C BCA, CMP #### [facility] ([id number]) [address] [address] Urinalysis dipstick W Reflex Microscopic panel (U) URINE RECEIVED WITHOUT PRESERVATIVE-DELAYS IN TRANSPORT MAY AFFECT RESULTS.INTERPRET WITH CAUTION AND CLINICAL CORRELATION IS RECOMMENDED. Normal [facility] Comment on above: Performed By: #### C BCA, CMP #### [facility] ([id number]) [address] [address] Urobilinogen Qn (U) 3 {Marley'U}/dL High <1.1 [facility] Comment on above: Performed By: #### C BCA, CMP #### [facility] ([id number]) [address] [address] W.B.CELLS 37 /hpf High 0-5 [facility] Comment on above: Performed By: #### C BCA, CMP #### [facility] ([id number]) [address] [address] XR CHEST 1 VWon 06-05-2024 XR CHEST [...] Espino MD on 06/05/2024 10:48 PM Normal [facility] aPTT Coag (PPP) [Time]on aPTT Coag (Bld) [Time] 32 s Normal 26-37 [facility] Comment on above: Performed By: #### C BCA, 52124-1, PINR, 37134-4, 1798-8, CMP, 3040-3, 5643-2 ####[facility] ([id number])[address] [facility], [address] [place] [address] BASIC METABOLIC PANLon 06-01 Anion gap [Moles/Vol] 10 mmol/L Normal 5-15 [facility] Comment on above: Performed By: #### P INR, 64783-2, 46090-1, CBCA, 73057-4, CMP, 4548-4, 6873-4 #### [facility] ([id number]) [address] [place] [address] #### HA1C #### [facility] ([id number]) [address] [facility], [address] [place] [address] Calcium [Mass/Vol] 8.7 mg/dL Normal 8.5-10.5 [facility] Comment on above: Performed By: #### P INR, 35847-3, 06437-5, CBCA, 72867-9, CMP, 4548-4, 6873-4 #### [facility] ([id number]) [address] [place] [address] #### HA1C #### [facility] ([id number]) [address], [address] [place] [address] Chloride [Moles/Vol] 99 mmol/L Normal 98-109 [facility] Comment on above: Performed By: #### P INR, 83340-9, 70777-5, CBCA, 54925-5, CMP, 4548-4, 6873-4 #### [facility] ([id number]) [address] [place] [address] #### HA1C #### [facility] ([id number]) [address] [facility], [address] [place] [address] CO2 [Moles/Vol] 23 mmol/L Normal 22-32 [facility] Comment on above: Performed By: #### P INR, 98348-3, 43020-0, CBCA, 59484-0, CMP, 4548-4, 6873-4 #### [facility] ([id number]) [address] [place] [address] #### HA1C #### [facility] ([id number]) [address] [facility], [address] [place] [address] Creatinine [Mass/Vol] 0.59 mg/dL Low 0.70-1.20 [facility] Comment on above: Result Comment: METH OD TRACEABLE TO IDMS STANDARD Performed By: #### P INR, 94275-9, 65692-4, CBCA, 63337-1, CMP, 4548-4, 6873-4 #### [facility] ([id number]) [address] [place] [address] #### HA1C #### [facility] ([id number]) [address], [address] [place] [address] eGFR (CKD-EPI) NON-RACE DEPENDENT >90 Normal >59 [facility] Comment on above: Result Comment: Reported eGFR is based on the CKD-EPI 2020 equation that does not use a race coefficient. Performed By: #### P INR, 08554-0, 99424-7, CBCA, 89931-7, CMP, 4548-4, 6873-4 #### [facility] ([id number]) [address] [place] [address] #### HA1C #### [facility] ([id number]) [address], [address] [place] [address] Glucose [Mass/Vol] 163 mg/dL High 65-99 [facility] Comment on above: Performed By: #### P INR, 37629-1, 92052-7, CBCA, 58222-6, CMP, 4548-4, 6873-4 #### [facility] ([id number]) [address] [place] [address] #### HA1C #### [facility] ([id number]) [address] [facility], [address] [place] [address] Potassium [Moles/Vol] 3.9 mmol/L Normal 3.5-5.0 [facility] Comment on above: Performed By: #### P INR, 22590-5, 58440-8, CBCA, 34946-4, CMP, 4548-4, 6873-4 #### [facility] ([id number]) [address] [place] [address] #### HA1C #### [facility] ([id number]) [address], [address] [place] [address] Sodium [Moles/Vol] 132 mmol/L Low 134-146 [facility] Comment on above: Performed By: #### P INR, 85071-1, 20011-4, CBCA, 75450-5, CMP, 4548-4, 6873-4 #### [facility] ([id number]) [address] [place] [address] #### HA1C #### [facility] ([id number]) [address], [address] [place] [address] Urea nitrogen [Mass/Vol] 15 mg/dL Normal 5-27 [facility] Comment on above: Performed By: #### P INR, 06994-5, 14885-9, CBCA, 72472-4, CMP, 4548-4, 6873-4 #### [facility] ([id number]) [address] [place] [address] #### HA1C #### [facility] ([id number]) [address] [facility], [address] [place] [address] CBC AND AUTO DIFFon 06-01-20 24 ABSOLUTE BASOPHIL 0.0 X10E9/L Normal 0.0-0.2 [facility] Comment on above: Performed By: #### P INR, 57467-8, 20149-2, CBCA, 63341-4, CMP, 4548-4, 6873-4 #### [facility] ([id number]) [address] [place] [address] #### HA1C #### [facility] ([id number]) [address] [facility], [address] [place] [address] ABSOLUTE NEUTROPHIL 2.5 X10E9/L Normal 1.5-6.6 [facility] Comment on above: Performed By: #### P INR, 03160-3, 93168-7, CBCA, 43065-2, CMP, 4548-4, 6873-4 #### [facility] ([id number]) [address] [place] [address] #### HA1C #### [facility] ([id number]) [address] [place] [address] Basophils/100 WBC (Bld) 1.0 % Normal P [facility] Comment on above: Performed By: #### P INR, 22866-3, 00335-8, CBCA, 18194-7, CMP, 4548-4, 6873-4 #### [facility] ([id number]) [address] [place] [address] #### HA1C #### [facility] ([id number]) [address], [address] [place] [address] Eosinophils (Bld) [#/Vol] 0.3 10*3/uL Normal 0.0-0.4 [facility] Comment on above: Performed By: #### P INR, 80507-4, 85226-3, CBCA, 96088-8, CMP, 4548-4, 6873-4 #### [facility] ([id number]) [address] [place] [address] #### HA1C #### [facility] ([id number]) [address], [address] [place] [address] Eosinophils/100 WBC (Bld) 6.5 % Normal [facility] Comment on above: Performed By: #### P INR, 89702-8, 49214-6, CBCA, 95066-7, CMP, 4548-4, 6873-4 #### [facility] ([id number]) [address] [place] [address] #### HA1C #### [facility] ([id number]) [address] [place] [address] Erythrocyte distribution width (RBC) [Ratio] 15.7 % High 11.5-15.0 [facility] Comment on above: Performed By: #### P INR, 88515-6, 08729-5, CBCA, 12494-4, CMP, 4548-4, 6873-4 #### [facility] ([id number]) [address] [place] [address] #### HA1C #### [facility] ([id number]) [address] [place] [address] Hematocrit (Bld) [Volume fraction] 34.2 % Low 39-49 [facility] Comment on above: Performed By: #### P INR, 64317-1, 79802-4, CBCA, 24461-2, CMP, 4548-4, 6873-4 #### [facility] ([id number]) [address] [place] [address] #### HA1C #### [facility] ([id number]) [address] [place] [address] Hemoglobin (Bld) [Mass/Vol] 11.6 g/dL Low 13.0-17.0 [facility] Comment on above: Performed By: #### P INR, 96454-8, 92662-2, CBCA, 85162-8, CMP, 4548-4, 6873-4 #### [facility] ([id number]) [address] [place] [address] #### HA1C #### [facility] ([id number]) [address] [place] [address] Lymphocytes (Bld) [#/Vol] 1.6 10*3/uL Normal 1.0-3.5 [facility] Comment on above: Performed By: #### P INR, 01785-3, 66830-0, CBCA, 50546-0, CMP, 4548-4, 6873-4 #### [facility] ([id number]) [address] [place] [address] #### HA1C #### [facility] ([id number]) [address], [address] [place] [address] Lymphocytes/100 WBC (Bld) 33.6 % Normal [facility] Comment on above: Performed By: #### P INR, 53924-1, 06507-8, CBCA, 72825-3, CMP, 4548-4, 6873-4 #### [facility] ([id number]) [address] [place] [address] #### HA1C #### [facility] ([id number]) [address], [address] [place] [address] MCH (RBC) [Entitic mass] 27.2 pg Normal 27-34 [facility] Comment on above: Performed By: #### P INR, 11190-2, 81631-0, CBCA, 42813-5, CMP, 4548-4, 6873-4 #### [facility] ([id number]) [address] [place] [address] #### HA1C #### [facility] ([id number]) [address], [address] [place] [address] MCHC (RBC) [Mass/Vol] 33.9 g/dL Normal 32-36 [facility] Comment on above: Performed By: #### P INR, 99308-1, 38653-2, CBCA, 45817-8, CMP, 4548-4, 6873-4 #### [facility] ([id number]) [address] [place] [address] #### HA1C #### [facility] ([id number]) [address], [address] [place] [address] MCV (RBC) [Entitic vol] 80 fL Normal 80-100 P [facility] Comment on above: Performed By: #### P INR, 49191-3, 97663-8, CBCA, 58278-0, CMP, 4548-4, 6873-4 #### [facility] ([id number]) [address] [place] [address] #### HA1C #### [facility] ([id number]) [address], [address] [place] [address] Monocytes (Bld) [#/Vol] 0.4 10*3/uL Normal 0-0.9 [facility] Comment on above: Performed By: #### P INR, 90527-8, 83905-6, CBCA, 80998-6, CMP, 4548-4, 6873-4 #### [facility] ([id number]) [address] [place] [address] #### HA1C #### [facility] ([id number]) [address], [address] [place] [address] Monocytes/100 WBC (Bld) 7.6 % Normal [facility] Comment on above: Performed By: #### P INR, 73069-1, 82635-2, CBCA, 94265-5, CMP, 4548-4, 6873-4 #### [facility] ([id number]) [address] [place] [address] 10756 #### HA1C #### [facility] ([id number]) [address], [address] [place] [address] Neutrophils/100 WBC (Bld) 51.3 % Normal [facility] Comment on above: Performed By: #### P INR, 83176-9, 95102-3, CBCA, 24362-5, CMP, 4548-4, 6873-4 #### [facility] ([id number]) [address] [place] [address] 54656 #### HA1C #### [facility] ([id number]) [address], [address] [place] [address] Platelet mean volume (Bld) [Entitic vol] 6.8 fL Low 7-12 [facility] Comment on above: Performed By: #### P INR, 84474-0, 44114-8, CBCA, 56607-2, CMP, 4548-4, 6873-4 #### [facility] ([id number]) [address] [place] [address] 85515 #### HA1C #### [facility] ([id number]) [address], [address] [place] [address] Platelets (Bld) [#/Vol] 300 10*3/uL Normal 150-450 [facility] Comment on above: Performed By: #### P INR, 63427-0, 02450-2, CBCA, 32741-4, CMP, 4548-4, 6873-4 #### [facility] ([id number]) [address] [place] [address] 30102 #### HA1C #### [facility] ([id number]) [address] [facility], [address] [place] [address] RBC COUNT 4.25 X10E12/L Normal 4.10-5.70 [facility] Comment on above: Performed By: #### P INR, 55328-7, 95753-2, CBCA, 56162-0, CMP, 4548-4, 6873-4 #### [facility] ([id number]) [address] [place] [address] 37108 #### HA1C #### [facility] ([id number]) [address], [address] [place] [address] WBC (Bld) [#/Vol] 4.9 10*3/uL Normal 4.0-11.0 [facility] Comment on above: Performed By: #### P INR, 58188-9, 07343-1, CBCA, 23071-4, CMP, 4548-4, 6873-4 #### [facility] ([id number]) [address] [place] [address], [place] [address] #### HA1C #### [facility] ([id number]) [address], [address] [place] [address] Glucose Glucometer (BldC) [M ass/Vol]on 06-01-2024 Glucose [Mass/Vol] 143 mg/dL High 65-99 [facility] BASIC METABOLIC PANLon 05-31 Anion gap [Moles/Vol] 8 mmol/L Normal 5-15 [facility] Comment on above: Performed By: #### P INR, 22261-7, 24962-0, CBCA, 57191-6, CMP, 4548-4, 6873-4 #### [facility] ([id number]) [address] [place] [address] 18506 #### HA1C #### [facility] ([id number]) [address] [facility] [address], [address] [place] [address] Calcium [Mass/Vol] 8.5 mg/dL Normal 8.5-10.5 [facility] Comment on above: Performed By: #### P INR, 49999-3, 68425-4, CBCA, 53110-6, CMP, 4548-4, 6873-4 #### [facility] ([id number]) [address] [place] [address] 94720 #### HA1C #### [facility] ([id number]) [address], [address] [place] [address] Chloride [Moles/Vol] 100 mmol/L Normal 98-109 [facility] Comment on above: Performed By: #### P INR, 72997-3, 75672-3, CBCA, 02322-8, CMP, 4548-4, 6873-4 #### [facility] ([id number]) [address] [place] [address] 47740 #### HA1C #### [facility] ([id number]) [address], [address] [place] [address] CO2 [Moles/Vol] 24 mmol/L Normal 22-32 [facility] Comment on above: Performed By: #### P INR, 16919-8, 00219-9, CBCA, 39706-4, CMP, 4548-4, 6873-4 #### [facility] ([id number]) [address] [place] [address] 17951 #### HA1C #### [facility] ([id number]) [address], [address] [place] [address] Creatinine [Mass/Vol] 0.69 mg/dL Low 0.70-1.20 [facility] Comment on above: Result Comment: METH OD TRACEABLE TO IDMS STANDARD Performed By: #### P INR, 52853-7, 07743-5, CBCA, 73759-1, CMP, 4548-4, 6873-4 #### [facility] ([id number]) [address] [place] [address] 05727 #### HA1C #### [facility] ([id number]) [address], [address] [place] [address] eGFR (CKD-EPI) NON-RACE DEPENDENT >90 Normal >59 [facility] Comment on above: Result Comment: Reported eGFR is based on the CKD-EPI 2020 equation that does not use a race coefficient. Performed By: #### P INR, 37043-2, 72509-9, CBCA, 79976-6, CMP, 4548-4, 6873-4 #### [facility] ([id number]) [address] [place] [address] 22326 #### HA1C #### [facility] ([id number]) [address], [address] [place] [address] Glucose [Mass/Vol] 139 mg/dL High 65-99 [facility] Comment on above: Performed By: #### P INR, 30327-0, 09716-6, CBCA, 20585-6, CMP, 4548-4, 6873-4 #### [facility] ([id number]) [address] [place] [address] 77537 #### HA1C #### [facility] ([id number]) [address], [address] [place] [address] Potassium [Moles/Vol] 3.7 mmol/L Normal 3.5-5.0 [facility] Comment on above: Performed By: #### P INR, 30397-4, 73586-0, CBCA, 87996-0, CMP, 4548-4, 6873-4 #### [facility] ([id number]) [address] [place] [address] 99977 #### HA1C #### [facility] ([id number]) [address], [address] [place] [address] Sodium [Moles/Vol] 132 mmol/L Low 134-146 [facility] Comment on above: Performed By: #### P INR, 25728-1, 47045-4, CBCA, 78122-1, CMP, 4548-4, 6873-4 #### [facility] ([id number]) [address] [place] [address] 58363 #### HA1C #### [facility] ([id number]) [address], [address] [place] [address] Urea nitrogen [Mass/Vol] 16 mg/dL Normal 5-27 [facility] Comment on above: Performed By: #### P INR, 28924-9, 34798-8, CBCA, 72285-1, CMP, 4548-4, 6873-4 #### [facility] ([id number]) [address] [place] [address] 69682 #### HA1C #### [facility] ([id number]) [address], [address] [place] [address] CBC AND AUTO DIFFon 05-31-20 24 ABSOLUTE BASOPHIL 0.1 X10E9/L Normal 0.0-0.2 [facility] Comment on above: Performed By: #### P INR, 73061-9, 97236-8, CBCA, 59455-7, CMP, 4548-4, 6873-4 #### [facility] ([id number]) [address] [place] [address] 39988 #### HA1C #### [facility] ([id number]) [address], [address] [place] [address] ABSOLUTE NEUTROPHIL 3.4 X10E9/L Normal 1.5-6.6 [facility] Comment on above: Performed By: #### P INR, 47954-2, 69160-3, CBCA, 17453-7, CMP, 4548-4, 6873-4 #### [facility] ([id number]) [address] [place] [address] 35708 #### HA1C #### [facility] ([id number]) [address], [address] [place] [address] Basophils/100 WBC (Bld) 1.1 % Normal [facility] Comment on above: Performed By: #### P INR, 39889-5, 22281-1, CBCA, 76196-7, CMP, 4548-4, 6873-4 #### [facility] ([id number]) [address] [place] [address] 86788 #### HA1C #### [facility] ([id number]) [address], [address] [place] [address] Eosinophils (Bld) [#/Vol] 0.4 10*3/uL Normal 0.0-0.4 [facility] Comment on above: Performed By: #### P INR, 92931-7, 06997-8, CBCA, 51874-1, CMP, 4548-4, 6873-4 #### [facility] ([id number]) [address] [place] [address] 77323 #### HA1C #### [facility] ([id number]) [address], [address] [place] [address] Eosinophils/100 WBC (Bld) 7.9 % Normal [facility] Comment on above: Performed By: #### P INR, 33344-9, 05984-2, CBCA, 49232-1, CMP, 4548-4, 6873-4 #### [facility] ([id number]) [address] [place] [address] 36274 #### HA1C #### [facility] ([id number]) [address], [address] [place] [address] Erythrocyte distribution width (RBC) [Ratio] 15.1 % High 11.5-15.0 [facility] Comment on above: Performed By: #### P INR, 59001-8, 12721-1, CBCA, 53911-8, CMP, 4548-4, 6873-4 #### [facility] ([id number]) [address] [place] [address] 49336 #### HA1C #### [facility] ([id number]) [address], [address] [place] [address] Hematocrit (Bld) [Volume fraction] 37.2 % Low 39-49 [facility] Comment on above: Performed By: #### P INR, 07123-7, 81113-3, CBCA, 71583-8, CMP, 4548-4, 6873-4 #### [facility] ([id number]) [address] [place] [address] 07256 #### HA1C #### [facility] ([id number]) [address], [address] [place] [address] Hemoglobin (Bld) [Mass/Vol] 12.5 g/dL Low 13.0-17.0 [facility] Comment on above: Performed By: #### P INR, 18277-6, 54144-1, CBCA, 36601-3, CMP, 4548-4, 6873-4 #### [facility] ([id number]) [address] [place] [address] 58799 #### HA1C #### [facility] ([id number]) [address], [address] [place] [address] Lymphocytes (Bld) [#/Vol] 1.2 10*3/uL Normal 1.0-3.5 [facility] Comment on above: Performed By: #### P INR, 90122-5, 94776-8, CBCA, 21284-0, CMP, 4548-4, 6873-4 #### [facility] ([id number]) [address] [place] [address] 55811 #### HA1C #### [facility] ([id number]) [address], [address] [place] [address] Lymphocytes/100 WBC (Bld) 21.2 % Normal [facility] Comment on above: Performed By: #### P INR, 66074-5, 91658-1, CBCA, 39401-4, CMP, 4548-4, 6873-4 #### [facility] ([id number]) [address] [place] [address] 53382 #### HA1C #### [facility] ([id number]) [address], [address] [place] [address] MCH (RBC) [Entitic mass] 27.4 pg Normal 27-34 [facility] Comment on above: Performed By: #### P INR, 60402-1, 28290-9, CBCA, 19254-4, CMP, 4548-4, 6873-4 #### [facility] ([id number]) [address] [place] [address] 94061 #### HA1C #### [facility] ([id number]) [address], [address] [place] [address] MCHC (RBC) [Mass/Vol] 33.7 g/dL Normal 32-36 [facility] Comment on above: Performed By: #### P INR, 97611-7, 80887-3, CBCA, 55819-5, CMP, 4548-4, 6873-4 #### [facility] ([id number]) [address] [place] [address] 26585 #### HA1C #### [facility] ([id number]) [address], [address] [place] [address] MCV (RBC) [Entitic vol] 81 fL Normal 80-100 P [facility] Comment on above: Performed By: #### P INR, 91493-0, 10491-1, CBCA, 11920-7, CMP, 4548-4, 6873-4 #### [facility] ([id number]) [address] [place] [address] 17797 #### HA1C #### [facility] ([id number]) [address], [address] [place] [address] Monocytes (Bld) [#/Vol] 0.4 10*3/uL Normal 0-0.9 [facility] Comment on above: Performed By: #### P INR, 95966-6, 25966-7, CBCA, 76896-9, CMP, 4548-4, 6873-4 #### [facility] ([id number]) [address] [place] [address] 28083 #### HA1C #### [facility] ([id number]) [address] [place] [address] Monocytes/100 WBC (Bld) 6.7 % Normal [facility] Comment on above: Performed By: #### P INR, 06212-9, 24832-5, CBCA, 06296-5, CMP, 4548-4, 6873-4 #### [facility] ([id number]) [address] [place] [address] 11123 #### HA1C #### [facility] ([id number]) [address], [address] [place] [address] Neutrophils/100 WBC (Bld) 63.1 % Normal [facility] Comment on above: Performed By: #### P INR, 88003-6, 44363-0, CBCA, 14501-8, CMP, 4548-4, 6873-4 #### [facility] ([id number]) [address] [place] [address] 76221 #### HA1C #### [facility] ([id number]) [address] [facility] [facility], [address] [place] [address] Platelet mean volume (Bld) [Entitic vol] 6.9 fL Low 7-12 [facility] Comment on above: Performed By: #### P INR, 76625-6, 05835-8, CBCA, 06696-6, CMP, 4548-4, 6873-4 #### [facility] ([id number]) [address] [place] [address] 70334 #### HA1C #### [facility] ([id number]) [address], [address] [place] [address] Platelets (Bld) [#/Vol] 297 10*3/uL Normal 150-450 [facility] Comment on above: Performed By: #### P INR, 64734-9, 92139-7, CBCA, 83826-1, CMP, 4548-4, 6873-4 #### [facility] ([id number]) [address] [place] [address] 01465 #### HA1C #### [facility] ([id number]) [address] [facility] [facility] [place] [address] RBC COUNT 4.57 X10E12/L Normal 4.10-5.70 [facility] Comment on above: Performed By: #### P INR, 99759-7, 10134-2, CBCA, 83209-4, CMP, 4548-4, 6873-4 #### [facility] ([id number]) [address] [place] [address] 08784 #### HA1C #### [facility] ([id number]) [address] [place] [address], [address] [address] WBC (Bld) [#/Vol] 5.4 10*3/uL Normal 4.0-11.0 [facility] Comment on above: Performed By: #### P INR, 71478-9, 26565-6, CBCA, 58095-2, CMP, 4548-4, 6873-4 #### [facility] ([id number]) [address] [place] [address] 65500 #### HA1C #### [facility] ([id number]) [address] [place] [address], [address] [place] [address] Glucose Glucometer (BldC) [M ass/Vol]on 05-31-2024 Glucose [Mass/Vol] 201 mg/dL High 65-99 [facility] Glucose [Mass/Vol] 217 mg/dL High 65-99 [facility] Glucose [Mass/Vol] 189 mg/dL High 65-99 [facility] Glucose [Mass/Vol] 148 mg/dL High 65-99 [facility] CBC AND AUTO DIFFon 08-04-20 24 ABSOLUTE BASOPHIL 0.1 X10E9/L Normal 0.0-0.2 [facility] Comment on above: Performed By: #### P INR, 05024-3, 31119-5, CBCA, 76892-1, CMP, 4548-4, 6873-4 #### [facility] ([id number]) [address] [place] [address] 20606 #### HA1C #### [facility] ([id number]) [address], [address] [place] [address] ABSOLUTE NEUTROPHIL 2.4 X10E9/L Normal 1.5-6.6 [facility] Comment on above: Performed By: #### P INR, 29393-0, 03682-7, CBCA, 42333-9, CMP, 4548-4, 6873-4 #### [facility] ([id number]) [address] [place] [address] 03982 #### HA1C #### [facility] ([id number]) [address], [address] [place] [address] Basophils/100 WBC (Bld) 1.2 % Normal [facility] Comment on above: Performed By: #### P INR, 36777-4, 51775-3, CBCA, 11680-9, CMP, 4548-4, 6873-4 #### [facility] ([id number]) [address] [place] [address] 81645 #### HA1C #### [facility] ([id number]) [address] [place] [address] Eosinophils (Bld) [#/Vol] 0.4 10*3/uL Normal 0.0-0.4 [facility] Comment on above: Performed By: #### P INR, 49965-0, 15798-6, CBCA, 22878-3, CMP, 4548-4, 6873-4 #### [facility] ([id number]) [address] [place] [address] 38687 #### HA1C #### [facility] ([id number]) [address] [place] [address] Eosinophils/100 WBC (Bld) 10.0 % Normal [facility] Comment on above: Performed By: #### P INR, 01658-3, 50295-1, CBCA, 30141-3, CMP, 4548-4, 6873-4 #### [facility] ([id number]) [address] [place] [address] 69911 #### HA1C #### [facility] ([id number]) [address] [place] [address] Erythrocyte distribution width (RBC) [Ratio] 15.3 % High 11.5-15.0 [facility] Comment on above: Performed By: #### P INR, 28302-6, 39103-8, CBCA, 48240-6, CMP, 4548-4, 6873-4 #### [facility] ([id number]) [address] [place] [address] 93553 #### HA1C #### [facility] ([id number]) [address] [place] [address] Hematocrit (Bld) [Volume fraction] 33.6 % Low 39-49 [facility] Comment on above: Performed By: #### P INR, 91202-1, 29695-3, CBCA, 20803-5, CMP, 4548-4, 6873-4 #### [facility] ([id number]) [address] [place] [address] 39753 #### HA1C #### [facility] ([id number]) [address] [place] [address] Hemoglobin (Bld) [Mass/Vol] 11.3 g/dL Low 13.0-17.0 [facility] Comment on above: Performed By: #### P INR, 81683-6, 47488-0, CBCA, 89277-1, CMP, 4548-4, 6873-4 #### [facility] ([id number]) [address] [place] [address] 96236 #### HA1C #### [facility] ([id number]) [address], [address] [place] [address] Lymphocytes (Bld) [#/Vol] 1.1 10*3/uL Normal 1.0-3.5 [facility] Comment on above: Performed By: #### P INR, 85105-4, 83369-7, CBCA, 86650-0, CMP, 4548-4, 6873-4 #### [facility] ([id number]) [address] [place] [address] 38371 #### HA1C #### [facility] ([id number]) [address] [place] [address] Lymphocytes/100 WBC (Bld) 24.4 % Normal [facility] Comment on above: Performed By: #### P INR, 05709-5, 70847-6, CBCA, 22863-5, CMP, 4548-4, 6873-4 #### [facility] ([id number]) [address] [place] [address] 47011 #### HA1C #### [facility] ([id number]) [address] [place] [address] MCH (RBC) [Entitic mass] 27.2 pg Normal 27-34 [facility] Comment on above: Performed By: #### P INR, 78392-5, 32465-0, CBCA, 04431-3, CMP, 4548-4, 6873-4 #### [facility] ([id number]) [address] [place] [address] 19099 #### HA1C #### [facility] ([id number]) [address] [place] [address] MCHC (RBC) [Mass/Vol] 33.5 g/dL Normal 32-36 [facility] Comment on above: Performed By: #### P INR, 17412-7, 07580-1, CBCA, 76659-4, CMP, 4548-4, 6873-4 #### [facility] ([id number]) [address] [place] [address] 00085 #### HA1C #### [facility] ([id number]) [address] [place] [address] MCV (RBC) [Entitic vol] 81 fL Normal 80-100 P [facility] Comment on above: Performed By: #### P INR, 38896-3, 60581-9, CBCA, 38526-8, CMP, 4548-4, 6873-4 #### [facility] ([id number]) [address] [place] [address] 31060 #### HA1C #### [facility] ([id number]) [address] [place] [address] Monocytes (Bld) [#/Vol] 0.4 10*3/uL Normal 0-0.9 [facility] Comment on above: Performed By: #### P INR, 68485-6, 02291-0, CBCA, 63177-9, CMP, 4548-4, 6873-4 #### [facility] ([id number]) [address] [place] [address] 42458 #### HA1C #### [facility] ([id number]) [address] [place] [address] Monocytes/100 WBC (Bld) 9.7 % Normal P [facility] Comment on above: Performed By: #### P INR, 13105-2, 96618-2, CBCA, 68699-4, CMP, 4548-4, 6873-4 #### [facility] ([id number]) [address] [place] [address] #### HA1C #### [facility] ([id number]) [address], [address] [place] [address] Neutrophils/100 WBC (Bld) 54.7 % Normal [facility] Comment on above: Performed By: #### P INR, 67430-7, 09058-5, CBCA, 46543-2, CMP, 4548-4, 6873-4 #### [facility] ([id number]) [address] [place] [address] #### HA1C #### [facility] ([id number]) [address], [address] [place] [address] Platelet mean volume (Bld) [Entitic vol] 7.1 fL Normal 7-12 [facility] Comment on above: Performed By: #### P INR, 52104-9, 82974-9, CBCA, 72790-3, CMP, 4548-4, 6873-4 #### [facility] ([id number]) [address] [place] [address] #### HA1C #### [facility] ([id number]) [address], [address] [place] [address] Platelets (Bld) [#/Vol] 282 10*3/uL Normal 150-450 [facility] Comment on above: Performed By: #### P INR, 34407-6, 97303-0, CBCA, 02338-6, CMP, 4548-4, 6873-4 #### [facility] ([id number]) [address] [place] [address] [place] [address] #### HA1C #### [facility] ([id number]) [address] [facility], [address] [place] [address] RBC COUNT 4.14 X10E12/L Normal 4.10-5.70 [facility] Comment on above: Performed By: #### P INR, 98451-5, 32540-8, CBCA, 92719-4, CMP, 4548-4, 6873-4 #### [facility] ([id number]) [address] [place] [address] #### HA1C #### [facility] ([id number]) [address] [place] [address], [address] [address] WBC (Bld) [#/Vol] 4.4 10*3/uL Normal 4.0-11.0 [facility] Comment on above: Performed By: #### P INR, 62113-1, 44454-5, CBCA, 77411-2, CMP, 4548-4, 6873-4 #### [facility] ([id number]) [address] [place] [address] #### HA1C #### [facility] ([id number]) [address] [place] [address], [address] [place] [address] COMPREHENSIVE METABOLIC PANE [place] 05-30-2024 Albumin [Mass/Vol] 3.3 g/dL Normal 3.2-5.3 [facility] Comment on above: Performed By: #### P INR, 97471-3, 24720-7, CBCA, 77217-2, CMP, 4548-4, 6873-4 #### [facility] ([id number]) [address] [place] [address] #### HA1C #### [facility] ([id number]) [address] [facility], [address] [place] [address] ALP [Catalytic activity/Vol] 82 U/L Normal 39-130 [facility] Comment on above: Performed By: #### P INR, 66568-0, 37796-6, CBCA, 39609-3, CMP, 4548-4, 6873-4 #### [facility] ([id number]) [address] [place] [address] #### HA1C #### [facility] ([id number]) [address], [address] [place] [address] ALT [Catalytic activity/Vol] 27 U/L Normal 0-40 [facility] Comment on above: Performed By: #### P INR, 19206-1, 30625-8, CBCA, 74324-3, CMP, 4548-4, 6873-4 #### [facility] ([id number]) [address] [place] [address] 86435 #### HA1C #### [facility] ([id number]) [address], [address] [place] [address] Anion gap [Moles/Vol] 7 mmol/L Normal 5-15 [facility] Comment on above: Performed By: #### P INR, 05817-4, 20952-3, CBCA, 15293-2, CMP, 4548-4, 6873-4 #### [facility] ([id number]) [address] [place] [address] 07808 #### HA1C #### [facility] ([id number]) [address], [address] [place] [address] AST [Catalytic activity/Vol] 21 U/L Normal 0-41 [facility] Comment on above: Performed By: #### P INR, 35615-8, 43306-4, CBCA, 26460-5, CMP, 4548-4, 6873-4 #### [facility] ([id number]) [address] [place] [address] 51480 #### HA1C #### [facility] ([id number]) [address], [address] [place] [address] Bilirubin [Mass/Vol] 0.6 mg/dL Normal 0.3-1.2 [facility] Comment on above: Performed By: #### P INR, 07683-5, 95298-5, CBCA, 55888-5, CMP, 4548-4, 6873-4 #### [facility] ([id number]) [address] [place] [address] 08014 #### HA1C #### [facility] ([id number]) [address], [address] [place] [address] Calcium [Mass/Vol] 8.2 mg/dL Low 8.5-10.5 [facility] Comment on above: Performed By: #### P INR, 24417-5, 45480-6, CBCA, 06597-7, CMP, 4548-4, 6873-4 #### [facility] ([id number]) [address] [place] [address] 80066 #### HA1C #### [facility] ([id number]) [address], [address] [place] [address] Chloride [Moles/Vol] 103 mmol/L Normal 98-109 [facility] Comment on above: Performed By: #### P INR, 89683-4, 31357-2, CBCA, 60540-8, CMP, 4548-4, 6873-4 #### [facility] ([id number]) [address] [place] [address] 22378 #### HA1C #### [facility] ([id number]) [address], [address] [place] [address] CO2 [Moles/Vol] 23 mmol/L Normal 22-32 [facility] Comment on above: Performed By: #### P INR, 90160-1, 24536-0, CBCA, 59483-9, CMP, 4548-4, 6873-4 #### [facility] ([id number]) [address] [place] [address] 53277 #### HA1C #### [facility] ([id number]) [address], [address] [place] [address] Creatinine [Mass/Vol] 0.69 mg/dL Low 0.70-1.20 [facility] Comment on above: Result Comment: METH OD TRACEABLE TO IDMS STANDARD Performed By: #### P INR, 81597-7, 31260-6, CBCA, 48388-8, CMP, 4548-4, 6873-4 #### [facility] ([id number]) [address] [place] [address] 69931 #### HA1C #### [facility] ([id number]) [address], [address] [place] [address] eGFR (CKD-EPI) NON-RACE DEPENDENT >90 Normal >59 [facility] Comment on above: Result Comment: Reported eGFR is based on the CKD-EPI 2021 equation that does not use a race coefficient. Performed By: #### P INR, 22653-1, 80880-6, CBCA, 78528-5, CMP, 4548-4, 6873-4 #### [facility] ([id number]) [address] [place] [address] 55205 #### HA1C #### [facility] ([id number]) [address], [address] [place] [address] Glucose [Mass/Vol] 132 mg/dL High 65-99 [facility] Comment on above: Performed By: #### P INR, 44284-9, 67450-6, CBCA, 74210-3, CMP, 4548-4, 6873-4 #### [facility] ([id number]) [address] [place] [address] 88582 #### HA1C #### [facility] ([id number]) [address], [address] [place] [address] Potassium [Moles/Vol] 3.6 mmol/L Normal 3.5-5.0 [facility] Comment on above: Performed By: #### P INR, 62743-6, 78336-3, CBCA, 93573-0, CMP, 4548-4, 6873-4 #### [facility] ([id number]) [address] [place] [address] 80583 #### HA1C #### [facility] ([id number]) [address], [address] [place] [address] Protein [Mass/Vol] 6.4 g/dL Normal 6.0-8.0 [facility] Comment on above: Performed By: #### P INR, 99253-3, 09216-9, CBCA, 54832-5, CMP, 4548-4, 6873-4 #### [facility] ([id number]) [address] [place] [address] 01256 #### HA1C #### [facility] ([id number]) [address], [address] [place] [address] Sodium [Moles/Vol] 133 mmol/L Low 134-146 [facility] Comment on above: Performed By: #### P INR, 23242-8, 97514-2, CBCA, 66301-5, CMP, 4548-4, 6873-4 #### [facility] ([id number]) [address] [place] [address] 33279 #### HA1C #### [facility] ([id number]) [address], [address] [place] [address] Urea nitrogen [Mass/Vol] 25 mg/dL Normal 5-27 [facility] Comment on above: Performed By: #### P INR, 90315-9, 65186-8, CBCA, 01865-0, CMP, 4548-4, 6873-4 #### [facility] ([id number]) [address] [place] [address] 94032 #### HA1C #### [facility] ([id number]) [address], [address] [place] [address] Glucose Glucometer (dC) [M ass/Vol]on 05-30-2024 Glucose [Mass/Vol] 194 mg/dL High 65-99 [facility] Glucose [Mass/Vol] 176 mg/dL High 65-99 [facility] Glucose [Mass/Vol] 131 mg/dL High 65-99 [facility] Glucose [Mass/Vol] 122 mg/dL High 65-99 [facility] CBC AND AUTO DIFFon 05-29-20 24 ABSOLUTE BASOPHIL 0.0 X10E9/L Normal 0.0-0.2 [facility] Comment on above: Performed By: #### P INR, 29212-2, 47210-2, CBCA, 92020-8, CMP, 4548-4, 6873-4 #### [facility] ([id number]) [address] [place] [address] 46926 #### HA1C #### [facility] ([id number]) [facility] [place] [address] ABSOLUTE NEUTROPHIL 3.0 X10E9/L Normal 1.5-6.6 [facility] Comment on above: Performed By: #### P INR, 52518-7, 70240-3, CBCA, 01007-6, CMP, 4548-4, 6873-4 #### [facility] ([id number]) [address] [place] [address] 10400 #### HA1C #### [facility] ([id number]) [address], [address] [place] [address] Basophils/100 WBC (Bld) 0.5 % Normal P [facility] Comment on above: Performed By: #### P INR, 63477-8, 18072-6, CBCA, 74130-8, CMP, 4548-4, 6873-4 #### [facility] ([id number]) [address] [place] [address] 15637 #### HA1C #### [facility] ([id number]) [address], [address] [place] [address] Eosinophils (Bld) [#/Vol] 0.3 10*3/uL Normal 0.0-0.4 [facility] Comment on above: Performed By: #### P INR, 61593-2, 33771-3, CBCA, 64209-2, CMP, 4548-4, 6873-4 #### [facility] ([id number]) [address] [place] [address] 36737 #### HA1C #### [facility] ([id number]) [address], [address] [place] [address] Eosinophils/100 WBC (Bld) 6.0 % Normal [facility] Comment on above: Performed By: #### P INR, 33959-0, 69668-8, CBCA, 18275-2, CMP, 4548-4, 6873-4 #### [facility] ([id number]) [address] [place] [address] 33820 #### HA1C #### [facility] ([id number]) [address], [address] [place] [address] Erythrocyte distribution width (RBC) [Ratio] 15.7 % High 11.5-15.0 [facility] Comment on above: Performed By: #### P INR, 22635-9, 99188-8, CBCA, 55230-9, CMP, 4548-4, 6873-4 #### [facility] ([id number]) [address] [place] [address] 09887 #### HA1C #### [facility] ([id number]) [address], [address] [place] [address] Hematocrit (Bld) [Volume fraction] 31.8 % Low 39-49 [facility] Comment on above: Performed By: #### P INR, 35790-7, 31210-0, CBCA, 69940-2, CMP, 4548-4, 6873-4 #### [facility] ([id number]) [address] [place] [address] 33181 #### HA1C #### [facility] ([id number]) [address], [address] [place] [address] Hemoglobin (Bld) [Mass/Vol] 10.7 g/dL Low 13.0-17.0 [facility] Comment on above: Performed By: #### P INR, 19025-2, 56931-0, CBCA, 37427-3, CMP, 4548-4, 6873-4 #### [facility] ([id number]) [address] [place] [address] 18322 #### HA1C #### [facility] ([id number]) [address], [address] [place] [address] Lymphocytes (Bld) [#/Vol] 0.7 10*3/uL Low 1.0-3.5 [facility] Comment on above: Performed By: #### P INR, 01579-4, 73729-1, CBCA, 15439-8, CMP, 4548-4, 6873-4 #### [facility] ([id number]) [address] [place] [address] 30387 #### HA1C #### [facility] ([id number]) [address], [address] [place] [address] Lymphocytes/100 WBC (Bld) 14.9 % Normal [facility] Comment on above: Performed By: #### P INR, 61947-4, 71668-2, CBCA, 91297-0, CMP, 4548-4, 6873-4 #### [facility] ([id number]) [address] [place] [address] 70256 #### HA1C #### [facility] ([id number]) [address] [place] [address] MCH (RBC) [Entitic mass] 27.7 pg Normal 27-34 [facility] Comment on above: Performed By: #### P INR, 85836-9, 69541-7, CBCA, 59899-6, CMP, 4548-4, 6873-4 #### [facility] ([id number]) [address] [place] [address] 51063 #### HA1C #### [facility] ([id number]) [address] [place] [address] MCHC (RBC) [Mass/Vol] 33.7 g/dL Normal 32-36 [facility] Comment on above: Performed By: #### P INR, 62829-0, 83059-0, CBCA, 07299-7, CMP, 4548-4, 6873-4 #### [facility] ([id number]) [address] [place] [address] 41005 #### HA1C #### [facility] ([id number]) [address], [address] [place] [address] MCV (RBC) [Entitic vol] 82 fL Normal 80-100 [facility] Comment on above: Performed By: #### P INR, 93501-5, 50105-2, CBCA, 39953-3, CMP, 4548-4, 6873-4 #### [facility] ([id number]) [address] [place] [address] 45820 #### HA1C #### [facility] ([id number]) [address], [address] [place] [address] Monocytes (Bld) [#/Vol] 0.5 10*3/uL Normal 0-0.9 [facility] Comment on above: Performed By: #### P INR, 82304-0, 64951-4, CBCA, 96301-4, CMP, 4548-4, 6873-4 #### [facility] ([id number]) [address] [place] [address] 44061 #### HA1C #### [facility] ([id number]) [address], [address] [place] [address] Monocytes/100 WBC (Bld) 11.2 % Normal [facility] Comment on above: Performed By: #### P INR, 97326-1, 65233-6, CBCA, 28987-8, CMP, 4548-4, 6873-4 #### [facility] ([id number]) [address] [place] [address] 78114 #### HA1C #### [facility] ([id number]) [address], [address] [place] [address] Neutrophils/100 WBC (Bld) 67.4 % Normal [facility] Comment on above: Performed By: #### P INR, 84785-2, 22193-0, CBCA, 44553-3, CMP, 4548-4, 6873-4 #### [facility] ([id number]) [address] [place] [address] 75620 #### HA1C #### [facility] ([id number]) [address], [address] [place] [address] Platelet mean volume (Bld) [Entitic vol] 7.4 fL Normal 7-12 [facility] Comment on above: Performed By: #### P INR, 58053-4, 91834-1, CBCA, 77413-8, CMP, 4548-4, 6873-4 #### [facility] ([id number]) [address] [place] [address] 59754 #### HA1C #### [facility] ([id number]) [address], [address] [place] [address] Platelets (Bld) [#/Vol] 263 10*3/uL Normal 150-450 [facility] Comment on above: Performed By: #### P INR, 87130-1, 37810-5, CBCA, 64576-5, CMP, 4548-4, 6873-4 #### [facility] ([id number]) [address] [place] [address] 80383 #### HA1C #### [facility] ([id number]) [address], [address] [place] [address] RBC COUNT 3.86 X10E12/L Low 4.10-5.70 [facility] Comment on above: Performed By: #### P INR, 18784-0, 83297-9, CBCA, 41947-6, CMP, 4548-4, 6873-4 #### [facility] ([id number]) [address] [place] [address] 97822 #### HA1C #### [facility] ([id number]) [address] [place] [address] WBC (Bld) [#/Vol] 4.4 10*3/uL Normal 4.0-11.0 [facility] Comment on above: Performed By: #### P INR, 72452-8, 77987-8, CBCA, 68393-4, CMP, 4548-4, 6873-4 #### [facility] ([id number]) [address] [place] [address] 08632 #### HA1C #### [facility] ([id number]) [address] [place] [address] COMPREHENSIVE METABOLIC PANE [place] 05-29-2024 Albumin [Mass/Vol] 3.1 g/dL Low 3.2-5.3 [facility] Comment on above: Performed By: #### P INR, 01077-3, 77867-1, CBCA, 26110-9, CMP, 4548-4, 6873-4 #### [facility] ([id number]) [address] [place] [address] 62456 #### HA1C #### [facility] ([id number]) [address] [place] [address] ALP [Catalytic activity/Vol] 79 U/L Normal 39-130 [facility] Comment on above: Performed By: #### P INR, 76111-7, 14982-1, CBCA, 04899-2, CMP, 4548-4, 6873-4 #### [facility] ([id number]) [address] [place] [address] 23479 #### HA1C #### [facility] ([id number]) [address], [address] [place] [address] ALT [Catalytic activity/Vol] 23 U/L Normal 0-40 [facility] Comment on above: Performed By: #### P INR, 66508-0, 92719-6, CBCA, 13224-8, CMP, 4548-4, 6873-4 #### [facility] ([id number]) [address] [place] [address] 10492 #### HA1C #### [facility] ([id number]) [address], [address] [place] [address] Anion gap [Moles/Vol] 9 mmol/L Normal 5-15 [facility] Comment on above: Performed By: #### P INR, 69637-0, 04355-1, CBCA, 02396-9, CMP, 4548-4, 6873-4 #### [facility] ([id number]) [address] [place] [address] 42735 #### HA1C #### [facility] ([id number]) [address] [place] [address] AST [Catalytic activity/Vol] 20 U/L Normal 0-41 [facility] Comment on above: Performed By: #### P INR, 78215-5, 49327-7, CBCA, 45421-0, CMP, 4548-4, 6873-4 #### [facility] ([id number]) [address] [place] [address] 80881 #### HA1C #### [facility] ([id number]) [address] [place] [address] Bilirubin [Mass/Vol] 0.5 mg/dL Normal 0.3-1.2 [facility] Comment on above: Performed By: #### P INR, 50204-2, 34019-9, CBCA, 97565-2, CMP, 4548-4, 6873-4 #### [facility] ([id number]) [address] [place] [address] 75867 #### HA1C #### [facility] ([id number]) [address] [place] [address] Calcium [Mass/Vol] 8.6 mg/dL Normal 8.5-10.5 [facility] Comment on above: Performed By: #### P INR, 90099-8, 17826-6, CBCA, 48926-9, CMP, 4548-4, 6873-4 #### [facility] ([id number]) [address] [place] [address] 55786 #### HA1C #### [facility] ([id number]) [address] [place] [address] Chloride [Moles/Vol] 102 mmol/L Normal 98-109 [facility] Comment on above: Performed By: #### P INR, 10904-6, 91524-4, CBCA, 40412-7, CMP, 4548-4, 6873-4 #### [facility] ([id number]) [address] [place] [address] 79487 #### HA1C #### [facility] ([id number]) [address], [address] [place] [address] CO2 [Moles/Vol] 24 mmol/L Normal 22-32 [facility] Comment on above: Performed By: #### P INR, 09906-5, 50217-0, CBCA, 53030-2, CMP, 4548-4, 6873-4 #### [facility] ([id number]) [address] [place] [address] 96472 #### HA1C #### [facility] ([id number]) [address], [address] [place] [address] Creatinine [Mass/Vol] 1.13 mg/dL Normal 0.70-1.20 [facility] Comment on above: Result Comment: METH OD TRACEABLE TO IDMS STANDARD Performed By: #### P INR, 65211-7, 96634-2, CBCA, 51575-3, CMP, 4548-4, 6873-4 #### [facility] ([id number]) [address] [place] [address] 11476 #### HA1C #### [facility] ([id number]) [address], [address] [place] [address] GFR/1.73 sq M.predicted among non-blacks MDRD (S/P/Bld) [Vol rate/Area] 70 mL/min/{1.73_m2} Normal >59 [facility] Comment on above: Result Comment: Reported eGFR is based on the CKD-EPI 2020 equation that does not use a race coefficient. Performed By: #### P INR, 68441-4, 87645-8, CBCA, 66180-3, CMP, 4548-4, 6873-4 #### [facility] ([id number]) [address] [place] [address] 77728 #### HA1C #### [facility] ([id number]) [address] [place] [address] Glucose [Mass/Vol] 133 mg/dL High 65-99 [facility] Comment on above: Performed By: #### P INR, 92082-6, 87032-2, CBCA, 24500-5, CMP, 4548-4, 6873-4 #### [facility] ([id number]) [address] [place] [address] 94285 #### HA1C #### [facility] ([id number]) [address], [address] [place] [address] Potassium [Moles/Vol] 3.5 mmol/L Normal 3.5-5.0 [facility] Comment on above: Performed By: #### P INR, 50073-9, 07492-9, CBCA, 52285-3, CMP, 4548-4, 6873-4 #### [facility] ([id number]) [address] [place] [address] 35776 #### HA1C #### [facility] ([id number]) [address], [address] [place] [address] Protein [Mass/Vol] 6.2 g/dL Normal 6.0-8.0 [facility] Comment on above: Performed By: #### P INR, 93257-8, 78993-4, CBCA, 90228-0, CMP, 4548-4, 6873-4 #### [facility] ([id number]) [address] [place] [address] 65439 #### HA1C #### [facility] ([id number]) [address] [place] [address] Sodium [Moles/Vol] 135 mmol/L Normal 134-146 [facility] Comment on above: Performed By: #### P INR, 05593-4, 18961-7, CBCA, 27804-0, CMP, 4548-4, 6873-4 #### [facility] ([id number]) [address] [place] [address] 32181 #### HA1C #### [facility] ([id number]) [address] [place] [address] Urea nitrogen [Mass/Vol] 52 mg/dL High 5-27 [facility] Comment on above: Performed By: #### P INR, 03767-1, 75202-0, CBCA, 53765-8, CMP, 4548-4, 6873-4 #### [facility] ([id number]) [address] [place] [address] 29998 #### HA1C #### [facility] ([id number]) [address] [place] [address] Glucose Glucometer (BldC) [M ass/Vol]on 05-29-2024 Glucose [Mass/Vol] 167 mg/dL High 65-99 [facility] Glucose [Mass/Vol] 127 mg/dL High 65-99 [facility] Glucose [Mass/Vol] 168 mg/dL High 65-99 [facility] POTASSIUMon 05-29-2024 Potassium [Moles/Vol] 4.1 mmol/L Normal 3.5-5.0 [facility] Comment on above: Performed By: #### P INR, 57728-5, 09732-7, CBCA, 28580-5, CMP, 4548-4, 6873-4 #### [facility] ([id number]) [address] [place] [address] #### HA1C #### [facility] ([id number]) [address], [address] [place] [address] Potassium [Moles/Vol] 3.7 mmol/L Normal 3.5-5.0 [facility] Comment on above: Performed By: #### P INR, 41499-3, 09720-6, CBCA, 72773-2, CMP, 4548-4, 6873-4 #### [facility] ([id number]) [address] [place] [address] #### HA1C #### [facility] ([id number]) [address], [address] [place] [address] CBC AND AUTO DIFFon 05-28-20 24 ABSOLUTE BASOPHIL 0.0 X10E9/L Normal 0.0-0.2 [facility] Comment on above: Performed By: #### P INR, 32567-5, 95616-6, CBCA, 96198-6, CMP, 4548-4, 6873-4 #### [facility] ([id number]) [address] [place] [address] #### HA1C #### [facility] ([id number]) [address], [address] [place] [address] ABSOLUTE NEUTROPHIL 5.2 X10E9/L Normal 1.5-6.6 [facility] Comment on above: Performed By: #### P INR, 86506-0, 24515-1, CBCA, 42766-4, CMP, 4548-4, 6873-4 #### [facility] ([id number]) [address] [place] [address] #### HA1C #### [facility] ([id number]) [address], [address] [place] [address] Basophils/100 WBC (Bld) 0.2 % Normal P [facility] Comment on above: Performed By: #### P INR, 16806-4, 82496-9, CBCA, 88966-6, CMP, 4548-4, 6873-4 #### [facility] ([id number]) [address] [place] [address] #### HA1C #### [facility] ([id number]) [address], [address] [place] [address] Eosinophils (Bld) [#/Vol] 0.1 10*3/uL Normal 0.0-0.4 [facility] Comment on above: Performed By: #### P INR, 23445-9, 83040-9, CBCA, 27315-7, CMP, 4548-4, 6873-4 #### [facility] ([id number]) [address] [place] [address] #### HA1C #### [facility] ([id number]) [address], [address] [place] [address] Eosinophils/100 WBC (Bld) 1.1 % Normal [facility] Comment on above: Performed By: #### P INR, 02325-1, 04149-4, CBCA, 98008-9, CMP, 4548-4, 6873-4 #### [facility] ([id number]) [address] [place] [address] #### HA1C #### [facility] ([id number]) [address], [address] [place] [address] Erythrocyte distribution width (RBC) [Ratio] 15.6 % High 11.5-15.0 [facility] Comment on above: Performed By: #### P INR, 25925-8, 43993-7, CBCA, 81384-3, CMP, 4548-4, 6873-4 #### [facility] ([id number]) [address] [place] [address] #### HA1C #### [facility] ([id number]) [address], [address] [place] [address] Hematocrit (Bld) [Volume fraction] 33.8 % Low 39-49 [facility] Comment on above: Performed By: #### P INR, 36867-8, 42290-5, CBCA, 35297-2, CMP, 4548-4, 6873-4 #### [facility] ([id number]) [address] [place] [address] #### HA1C #### [facility] ([id number]) [address], [address] [place] [address] Hemoglobin (Bld) [Mass/Vol] 11.2 g/dL Low 13.0-17.0 [facility] Comment on above: Performed By: #### P INR, 42120-6, 08532-5, CBCA, 78020-2, CMP, 4548-4, 6873-4 #### [facility] ([id number]) [address] [place] [address] 88149 #### HA1C #### [facility] ([id number]) [address], [address] [place] [address] Lymphocytes (Bld) [#/Vol] 0.6 10*3/uL Low 1.0-3.5 [facility] Comment on above: Performed By: #### P INR, 34645-3, 34017-2, CBCA, 18870-7, CMP, 4548-4, 6873-4 #### [facility] ([id number]) [address] [place] [address] 28959 #### HA1C #### [facility] ([id number]) [address], [address] [place] [address] Lymphocytes/100 WBC (Bld) 9.4 % Normal [facility] Comment on above: Performed By: #### P INR, 82446-2, 60106-9, CBCA, 43224-6, CMP, 4548-4, 6873-4 #### [facility] ([id number]) [address] [place] [address] 97008 #### HA1C #### [facility] ([id number]) [address], [address] [place] [address] MCH (RBC) [Entitic mass] 27.4 pg Normal 27-34 [facility] Comment on above: Performed By: #### P INR, 91555-1, 77444-2, CBCA, 49155-9, CMP, 4548-4, 6873-4 #### [facility] ([id number]) [address] [place] [address] 25964 #### HA1C #### [facility] ([id number]) [address], [address] [place] [address] MCHC (RBC) [Mass/Vol] 33.2 g/dL Normal 32-36 [facility] Comment on above: Performed By: #### P INR, 96415-4, 65403-6, CBCA, 27711-2, CMP, 4548-4, 6873-4 #### [facility] ([id number]) [address] [place] [address] 74370 #### HA1C #### [facility] ([id number]) [address], [address] [place] [address] MCV (RBC) [Entitic vol] 83 fL Normal 80-100 [facility] Comment on above: Performed By: #### P INR, 41565-2, 26041-3, CBCA, 49237-8, CMP, 4548-4, 6873-4 #### [facility] ([id number]) [address] [place] [address] 63206 #### HA1C #### [facility] ([id number]) [address], [address] [place] [address] Monocytes (Bld) [#/Vol] 0.6 10*3/uL Normal 0-0.9 [facility] Comment on above: Performed By: #### P INR, 96066-3, 41778-7, CBCA, 80400-8, CMP, 4548-4, 6873-4 #### [facility] ([id number]) [address] [place] [address] 64443 #### HA1C #### [facility] ([id number]) [address], [address] [place] [address] Monocytes/100 WBC (Bld) 9.1 % Normal [facility] Comment on above: Performed By: #### P INR, 37347-8, 94467-0, CBCA, 56100-1, CMP, 4548-4, 6873-4 #### [facility] ([id number]) [address] [place] [address] 26240 #### HA1C #### [facility] ([id number]) [address], [address] [place] [address] Neutrophils/100 WBC (Bld) 80.2 % Normal [facility] Comment on above: Performed By: #### P INR, 67437-1, 34162-7, CBCA, 35514-4, CMP, 4548-4, 6873-4 #### [facility] ([id number]) [address] [place] [address] 38559 #### HA1C #### [facility] ([id number]) [address], [address] [place] [address] Platelet mean volume (Bld) [Entitic vol] 7.8 fL Normal 7-12 [facility] Comment on above: Performed By: #### P INR, 59254-8, 80500-9, CBCA, 54155-6, CMP, 4548-4, 6873-4 #### [facility] ([id number]) [address] [place] [address] 43092 #### HA1C #### [facility] ([id number]) [address], [address] [place] [address] Platelets (Bld) [#/Vol] 263 10*3/uL Normal 150-450 [facility] Comment on above: Performed By: #### P INR, 77634-5, 66701-0, CBCA, 42413-9, CMP, 4548-4, 6873-4 #### [facility] ([id number]) [address] [place] [address] 68588 #### HA1C #### [facility] ([id number]) [address], [address] [place] [address] RBC COUNT 4.09 X10E12/L Low 4.10-5.70 [facility] Comment on above: Performed By: #### P INR, 33808-0, 07368-5, CBCA, 78821-9, CMP, 4548-4, 6873-4 #### [facility] ([id number]) [address] [place] [address] 86410 #### HA1C #### [facility] ([id number]) [address], [address] [place] [address] WBC (Bld) [#/Vol] 6.5 10*3/uL Normal 4.0-11.0 [facility] Comment on above: Performed By: #### P INR, 85988-8, 46506-3, CBCA, 39608-1, CMP, 4548-4, 6873-4 #### [facility] ([id number]) [address] [place] [address] 52715 #### HA1C #### [facility] ([id number]) [address], [address] [place] [address] COMPREHENSIVE METABOLIC PANE [place] 05-28-2024 Albumin [Mass/Vol] 3.6 g/dL Normal 3.2-5.3 [facility] Comment on above: Performed By: #### P INR, 11393-6, 55653-5, CBCA, 70971-4, CMP, 4548-4, 6873-4 #### [facility] ([id number]) [address] [place] [address] 29913 #### HA1C #### [facility] ([id number]) [address], [address] [place] [address] ALP [Catalytic activity/Vol] 91 U/L Normal 39-130 [facility] Comment on above: Performed By: #### P INR, 18704-4, 65751-5, CBCA, 43926-3, CMP, 4548-4, 6873-4 #### [facility] ([id number]) [address] [place] [address] 01608 #### HA1C #### [facility] ([id number]) [address], [address] [place] [address] ALT [Catalytic activity/Vol] 21 U/L Normal 0-40 [facility] Comment on above: Performed By: #### P INR, 75692-3, 26824-6, CBCA, 74910-6, CMP, 4548-4, 6873-4 #### [facility] ([id number]) [address] [place] [address] 33972 #### HA1C #### [facility] ([id number]) [address], [address] [place] [address] Anion gap [Moles/Vol] 12 mmol/L Normal 5-15 [facility] Comment on above: Performed By: #### P INR, 33007-2, 81768-1, CBCA, 15536-3, CMP, 4548-4, 6873-4 #### [facility] ([id number]) [address] [place] [address] 54742 #### HA1C #### [facility] ([id number]) [address], [address] [place] [address] AST [Catalytic activity/Vol] 18 U/L Normal 0-41 [facility] Comment on above: Performed By: #### P INR, 29721-1, 40664-8, CBCA, 60198-2, CMP, 4548-4, 6873-4 #### [facility] ([id number]) [address] [place] [address] 12154 #### HA1C #### [facility] ([id number]) [address], [address] [place] [address] Bilirubin [Mass/Vol] 0.7 mg/dL Normal 0.3-1.2 [facility] Comment on above: Performed By: #### P INR, 54257-7, 83645-0, CBCA, 77468-2, CMP, 4548-4, 6873-4 #### [facility] ([id number]) [address] [place] [address] 92234 #### HA1C #### [facility] ([id number]) [address], [address] [place] [address] Calcium [Mass/Vol] 8.9 mg/dL Normal 8.5-10.5 [facility] Comment on above: Performed By: #### P INR, 92562-6, 26428-0, CBCA, 53184-7, CMP, 4548-4, 6873-4 #### [facility] ([id number]) [address] [place] [address] 38755 #### HA1C #### [facility] ([id number]) [address], [address] [place] [address] Chloride [Moles/Vol] 98 mmol/L Normal 98-109 [facility] Comment on above: Performed By: #### P INR, 20950-6, 24436-4, CBCA, 83124-0, CMP, 4548-4, 6873-4 #### [facility] ([id number]) [address] [place] [address] 79452 #### HA1C #### [facility] ([id number]) [address], [address] [place] [address] CO2 [Moles/Vol] 23 mmol/L Normal 22-32 [facility] Comment on above: Performed By: #### P INR, 94535-7, 18925-3, CBCA, 21068-0, CMP, 4548-4, 6873-4 #### [facility] ([id number]) [address] [place] [address] 92491 #### HA1C #### [facility] ([id number]) [address], [address] [place] [address] Creatinine [Mass/Vol] 1.88 mg/dL High 0.70-1.20 [facility] Comment on above: Result Comment: METH OD TRACEABLE TO IDMS STANDARD Performed By: #### P INR, 33475-1, 26933-6, CBCA, 64889-3, CMP, 4548-4, 6873-4 #### [facility] ([id number]) [address] [place] [address] 25600 #### HA1C #### [facility] ([id number]) [address], [address] [place] [address] GFR/1.73 sq M.predicted among non-blacks MDRD (S/P/Bld) [Vol rate/Area] 38 mL/min/{1.73_m2} Low >59 [facility] Comment on above: Result Comment: Reported eGFR is based on the CKD-EPI 2020 equation that does not use a race coefficient. Performed By: #### P INR, 28223-7, 88653-3, CBCA, 24101-7, CMP, 4548-4, 6873-4 #### [facility] ([id number]) [address] [place] [address] 85701 #### HA1C #### [facility] ([id number]) [address] [place] [address] Glucose [Mass/Vol] 157 mg/dL High 65-99 [facility] Comment on above: Performed By: #### P INR, 47203-1, 64887-4, CBCA, 67815-8, CMP, 4548-4, 6873-4 #### [facility] ([id number]) [address] [place] [address] 69765 #### HA1C #### [facility] ([id number]) [address], [address] [place] [address] Potassium [Moles/Vol] 3.6 mmol/L Normal 3.5-5.0 [facility] Comment on above: Performed By: #### P INR, 74123-0, 65839-7, CBCA, 59419-9, CMP, 4548-4, 6873-4 #### [facility] ([id number]) [address] [place] [address] 37919 #### HA1C #### [facility] ([id number]) [address], [address] [place] [address] Protein [Mass/Vol] 6.8 g/dL Normal 6.0-8.0 [facility] Comment on above: Performed By: #### P INR, 02560-6, 77282-0, CBCA, 89508-0, CMP, 4548-4, 6873-4 #### [facility] ([id number]) [address] [place] [address] 74788 #### HA1C #### [facility] ([id number]) [address], [address] [place] [address] Sodium [Moles/Vol] 133 mmol/L Low 134-146 [facility] Comment on above: Performed By: #### P INR, 15664-8, 40903-1, CBCA, 39456-1, CMP, 4548-4, 6873-4 #### [facility] ([id number]) [address] [place] [address] 62157 #### HA1C #### [facility] ([id number]) [address], [address] [place] [address] Urea nitrogen [Mass/Vol] 87 mg/dL High 5-27 [facility] Comment on above: Performed By: #### P INR, 85485-9, 96516-5, CBCA, 28493-6, CMP, 4548-4, 6873-4 #### [facility] ([id number]) [address] [place] [address] 10233 #### HA1C #### [facility] ([id number]) [address], [address] [place] [address] Glucose Glucometer (BldC) [M ass/Vol]on 05-28-2024 Glucose [Mass/Vol] 148 mg/dL High 65-99 [facility] Glucose [Mass/Vol] 174 mg/dL High 65-99 [facility] Glucose [Mass/Vol] 177 mg/dL High 65-99 [facility] MAGNESIUMon 05-28-2024 Magnesium [Mass/Vol] 2.1 mg/dL Normal 1.8-2.6 [facility] Comment on above: Performed By: #### P INR, 23089-6, 41922-3, CBCA, 04309-2, CMP, 4548-4, 6873-4 #### [facility] ([id number]) [address] [place] [address] 70255 #### HA1C #### [facility] ([id number]) [address], [address] [place] [address] PHOSPHORUSon 05-28-2024 Phosphate [Mass/Vol] 4.4 mg/dL Normal 2.4-4.9 [facility] Comment on above: Performed By: #### P INR, 29071-9, 90243-6, CBCA, 58859-2, CMP, 4548-4, 6873-4 #### [facility] ([id number]) [address] [place] [address] 02201 #### HA1C #### [facility] ([id number]) [address], [address] [place] [address] POTASSIUMon 05-28-2024 Potassium [Moles/Vol] 3.6 mmol/L Normal 3.5-5.0 [facility] Comment on above: Performed By: #### P INR, 25093-3, 37690-3, CBCA, 58491-5, CMP, 4548-4, 6873-4 #### [facility] ([id number]) [address] [place] [address] 00971 #### HA1C #### [facility] ([id number]) [address], [address] [place] [address] CBC AND AUTO DIFFon 05-27-20 24 ABSOLUTE BASOPHIL 0.0 X10E9/L Normal 0.0-0.2 [facility] Comment on above: Performed By: #### P INR, 30467-3, 58048-1, CBCA, 50878-4, CMP, 4548-4, 6873-4 #### [facility] ([id number]) [address] [place] [address] 18094 #### HA1C #### [facility] ([id number]) [address], [address] [place] [address] ABSOLUTE NEUTROPHIL 12.1 X10E9/L High 1.5-6.6 [facility] Comment on above: Performed By: #### P INR, 79763-1, 28379-5, CBCA, 10916-6, CMP, 4548-4, 6873-4 #### [facility] ([id number]) [address] [place] [address] 04952 #### HA1C #### [facility] ([id number]) [address], [address] [place] [address] Basophils/100 WBC (Bld) 0.3 % Normal P [facility] Comment on above: Performed By: #### P INR, 47130-7, 91094-1, CBCA, 19633-7, CMP, 4548-4, 6873-4 #### [facility] ([id number]) [address] [place] [address] 71656 #### HA1C #### [facility] ([id number]) [address], [address] [place] [address] Eosinophils (Bld) [#/Vol] 0.0 10*3/uL Normal 0.0-0.4 [facility] Comment on above: Performed By: #### P INR, 33626-7, 59128-1, CBCA, 70926-9, CMP, 4548-4, 6873-4 #### [facility] ([id number]) [address] [place] [address] 61980 #### HA1C #### [facility] ([id number]) [address], [address] [place] [address] Eosinophils/100 WBC (Bld) 0.2 % Normal [facility] Comment on above: Performed By: #### P INR, 82684-8, 30064-9, CBCA, 04986-2, CMP, 4548-4, 6873-4 #### [facility] ([id number]) [address] [place] [address] 18139 #### HA1C #### [facility] ([id number]) [address], [address] [address] Erythrocyte distribution width (RBC) [Ratio] 16.2 % High 11.5-15.0 [facility] Comment on above: Performed By: #### P INR, 85436-8, 36233-9, CBCA, 91652-5, CMP, 4548-4, 6873-4 #### [facility] ([id number]) [address] [place] [address] 30298 #### HA1C #### [facility] ([id number]) [address], [address] [place] [address] Hematocrit (Bld) [Volume fraction] 39.5 % Normal 39-49 [facility] Comment on above: Performed By: #### P INR, 11719-8, 47465-9, CBCA, 26332-5, CMP, 4548-4, 6873-4 #### [facility] ([id number]) [address] [place] [address] 74673 #### HA1C #### [facility] ([id number]) [address] [place] [address] Hemoglobin (Bld) [Mass/Vol] 13.2 g/dL Normal 13.0-17.0 [facility] Comment on above: Performed By: #### P INR, 52237-1, 79801-9, CBCA, 66807-9, CMP, 4548-4, 6873-4 #### [facility] ([id number]) [address] [place] [address] 11769 #### HA1C #### [facility] ([id number]) [address], [address] [place] [address] Lymphocytes (Bld) [#/Vol] 0.4 10*3/uL Low 1.0-3.5 [facility] Comment on above: Performed By: #### P INR, 31150-1, 64943-7, CBCA, 61643-7, CMP, 4548-4, 6873-4 #### [facility] ([id number]) [address] [place] [address] 56162 #### HA1C #### [facility] ([id number]) [address], [address] [place] [address] Lymphocytes/100 WBC (Bld) 3.2 % Normal [facility] Comment on above: Performed By: #### P INR, 81060-5, 37927-0, CBCA, 89365-8, CMP, 4548-4, 6873-4 #### [facility] ([id number]) [address] [place] [address] 95878 #### HA1C #### [facility] ([id number]) [address], [address] [place] [address] MCH (RBC) [Entitic mass] 27.5 pg Normal 27-34 [facility] Comment on above: Performed By: #### P INR, 95687-4, 41643-9, CBCA, 27152-8, CMP, 4548-4, 6873-4 #### [facility] ([id number]) [address] [place] [address] 76472 #### HA1C #### [facility] ([id number]) [address], [address] [place] [address] MCHC (RBC) [Mass/Vol] 33.4 g/dL Normal 32-36 [facility] Comment on above: Performed By: #### P INR, 34273-9, 74366-8, CBCA, 46871-1, CMP, 4548-4, 6873-4 #### [facility] ([id number]) [address] [place] [address] 32088 #### HA1C #### [facility] ([id number]) [address], [address] [place] [address] MCV (RBC) [Entitic vol] 82 fL Normal 80-100 P [facility] Comment on above: Performed By: #### P INR, 54946-4, 37233-3, CBCA, 88864-2, CMP, 4548-4, 6873-4 #### [facility] ([id number]) [address] [place] [address] #### HA1C #### [facility] ([id number]) [address], [address] [place] [address] Monocytes (Bld) [#/Vol] 1.0 10*3/uL High 0-0.9 [facility] Comment on above: Performed By: #### P INR, 72557-4, 92604-9, CBCA, 30869-7, CMP, 4548-4, 6873-4 #### [facility] ([id number]) [address] [place] [address] 23815 #### HA1C #### [facility] ([id number]) [address], [address] [place] [address] Monocytes/100 WBC (Bld) 7.1 % Normal P [facility] Comment on above: Performed By: #### P INR, 57982-6, 11029-3, CBCA, 93373-2, CMP, 4548-4, 6873-4 #### [facility] ([id number]) [address] [place] [address] 05780 #### HA1C #### [facility] ([id number]) [address], [address] [place] [address] Neutrophils/100 WBC (Bld) 89.2 % Normal [facility] Comment on above: Performed By: #### P INR, 73970-3, 23819-0, CBCA, 82382-2, CMP, 4548-4, 6873-4 #### [facility] ([id number]) [address] [place] [address] 74637 #### HA1C #### [facility] ([id number]) [address] [place] [address] Platelet mean volume (Bld) [Entitic vol] 8.0 fL Normal 7-12 [facility] Comment on above: Performed By: #### P INR, 23655-8, 45956-8, CBCA, 90728-4, CMP, 4548-4, 6873-4 #### [facility] ([id number]) [address] [place] [address] 88370 #### HA1C #### [facility] ([id number]) [address] [place] [address] Platelets (Bld) [#/Vol] 296 10*3/uL Normal 150-450 [facility] Comment on above: Performed By: #### P INR, 89864-0, 21062-0, CBCA, 84101-6, CMP, 4548-4, 6873-4 #### [facility] ([id number]) [address] [place] [address] 75011 #### HA1C #### [facility] ([id number]) [address] [place] [address] RBC COUNT 4.79 X10E12/L Normal 4.10-5.70 [facility] Comment on above: Performed By: #### P INR, 96295-7, 04889-9, CBCA, 97284-2, CMP, 4548-4, 6873-4 #### [facility] ([id number]) [address] [place] [address] #### HA1C #### [facility] ([id number]) [address], [address] [place] [address] WBC (Bld) [#/Vol] 13.5 10*3/uL High 4.0-11.0 [facility] Comment on above: Performed By: #### P INR, 65518-2, 15443-3, CBCA, 64920-4, CMP, 4548-4, 6873-4 #### [facility] ([id number]) [address] [place] [address] #### HA1C #### [facility] ([id number]) [address] [place] [address] COMPREHENSIVE METABOLIC PANE [place] 05-27-2024 Albumin [Mass/Vol] 4.6 g/dL Normal 3.2-5.3 [facility] Comment on above: Performed By: #### P INR, 58368-6, 27272-6, CBCA, 17845-4, CMP, 4548-4, 6873-4 #### [facility] ([id number]) [address] [place] [address] #### HA1C #### [facility] ([id number]) [address], [address] [place] [address] ALP [Catalytic activity/Vol] 112 U/L Normal 39-130 [facility] Comment on above: Performed By: #### P INR, 29346-9, 63011-9, CBCA, 54738-8, CMP, 4548-4, 6873-4 #### [facility] ([id number]) [address] [place] [address] #### HA1C #### [facility] ([id number]) [address], [address] [place] [address] ALT [Catalytic activity/Vol] 23 U/L Normal 0-40 [facility] Comment on above: Performed By: #### P INR, 76809-2, 26509-4, CBCA, 51202-1, CMP, 4548-4, 6873-4 #### [facility] ([id number]) [address] [place] [address] #### HA1C #### [facility] ([id number]) [address], [address] [place] [address] Anion gap [Moles/Vol] 13 mmol/L Normal 5-15 [facility] Comment on above: Performed By: #### P INR, 06401-7, 04634-8, CBCA, 06853-6, CMP, 4548-4, 6873-4 #### [facility] ([id number]) [address] [place] [address] #### HA1C #### [facility] ([id number]) [address], [address] [place] [address] AST [Catalytic activity/Vol] 21 U/L Normal 0-41 [facility] Comment on above: Performed By: #### P INR, 15457-7, 92844-4, CBCA, 90331-9, CMP, 4548-4, 6873-4 #### [facility] ([id number]) [address] [place] [address] #### HA1C #### [facility] ([id number]) [address], [address] [place] [address] Bilirubin [Mass/Vol] 0.7 mg/dL Normal 0.3-1.2 [facility] Comment on above: Performed By: #### P INR, 77528-2, 33062-5, CBCA, 68066-6, CMP, 4548-4, 6873-4 #### [facility] ([id number]) [address] [place] [address]269 #### HA1C #### [facility] ([id number]) [address], [address] [place] [address] Calcium [Mass/Vol] 9.6 mg/dL Normal 8.5-10.5 [facility] Comment on above: Performed By: #### P INR, 44196-8, 10620-9, CBCA, 78460-5, CMP, 4548-4, 6873-4 #### [facility] ([id number]) [address] [place] [address] #### HA1C #### [facility] ([id number]) [address], [address] [place] [address] Chloride [Moles/Vol] 94 mmol/L Low 98-109 [facility] Comment on above: Performed By: #### P INR, 82755-8, 61223-1, CBCA, 43722-9, CMP, 4548-4, 6873-4 #### [facility] ([id number]) [address] [place] [address] 70421 #### HA1C #### [facility] ([id number]) [address], [address] [place] [address] CO2 [Moles/Vol] 21 mmol/L Low 22-32 [facility] Comment on above: Performed By: #### P INR, 35829-7, 51295-7, CBCA, 41856-9, CMP, 4548-4, 6873-4 #### [facility] ([id number]) [address] [place] [address] 38997 #### HA1C #### [facility] ([id number]) [address], [address] [place] [address] Creatinine [Mass/Vol] 2.75 mg/dL High 0.70-1.20 [facility] Comment on above: Result Comment: METH OD TRACEABLE TO IDMS STANDARD Performed By: #### P INR, 24730-2, 34702-7, CBCA, 40068-4, CMP, 4548-4, 6873-4 #### [facility] ([id number]) [address] [place] [address] 25340 #### HA1C #### [facility] ([id number]) [address], [address] [place] [address] GFR/1.73 sq M.predicted among non-blacks MDRD (S/P/Bld) [Vol rate/Area] 24 mL/min/{1.73_m2} Low >59 [facility] Comment on above: Result Comment: Reported eGFR is based on the CKD-EPI 2020 equation that does not use a race coefficient. Performed By: #### P INR, 02208-6, 71082-8, CBCA, 24546-8, CMP, 4548-4, 6873-4 #### [facility] ([id number]) [address] [place] [address] 22972 #### HA1C #### [facility] ([id number]) [address], [address] [place] [address] Glucose [Mass/Vol] 223 mg/dL High 65-99 [facility] Comment on above: Performed By: #### P INR, 94555-9, 20815-0, CBCA, 99398-8, CMP, 4548-4, 6873-4 #### [facility] ([id number]) [address] [place] [address] 47115 #### HA1C #### [facility] ([id number]) [address], [address] [place] [address] Potassium [Moles/Vol] 4.9 mmol/L Normal 3.5-5.0 [facility] Comment on above: Performed By: #### P INR, 90423-8, 74868-3, CBCA, 31192-4, CMP, 4548-4, 6873-4 #### [facility] ([id number]) [address] [place] [address] 52550 #### HA1C #### [facility] ([id number]) [address], [address] [place] [address] Protein [Mass/Vol] 8.2 g/dL High 6.0-8.0 [facility] Comment on above: Performed By: #### P INR, 22377-3, 79501-9, CBCA, 26261-1, CMP, 4548-4, 6873-4 #### [facility] ([id number]) [address] [place] [address] 73942 #### HA1C #### [facility] ([id number]) [address], [address] [place] [address] Sodium [Moles/Vol] 128 mmol/L Low 134-146 [facility] Comment on above: Performed By: #### P INR, 50401-7, 83182-6, CBCA, 15286-4, CMP, 4548-4, 6873-4 #### [facility] ([id number]) [address] [place] [address] 78803 #### HA1C #### [facility] ([id number]) [address], [address] [place] [address] Urea nitrogen [Mass/Vol] 106 mg/dL High 5-27 [facility] Comment on above: Performed By: #### P INR, 26732-8, 81052-1, CBCA, 65986-2, CMP, 4548-4, 6873-4 #### [facility] ([id number]) [address] [place] [address] 29047 #### HA1C #### [facility] ([id number]) [address], [address] [place] [address] Glucose Glucometer (BldC) [M ass/Vol]on 05-27-2024 Glucose [Mass/Vol] 170 mg/dL High 65-99 [facility] MAGNESIUMon 05-27-2024 Magnesium [Mass/Vol] 2.4 mg/dL Normal 1.8-2.6 [facility] Comment on above: Performed By: #### P INR, 88551-0, 46719-5, CBCA, 28723-1, CMP, 4548-4, 6873-4 #### [facility] ([id number]) [address] [place] [address] 36877 #### HA1C #### [facility] ([id number]) [address], [address] [place] [address] Troponin I.cardiac High sens itivity method [Mass/Vol]on 05-27-2024 1 HOUR TROP I, HIGH SENSITIVITY 11 ng/L Normal <21 [facility] Comment on above: Performed By: #### P INR, 16099-5, 56374-2, CBCA, 61279-3, CMP, 4548-4, 6873-4 #### [facility] ([id number]) [address] [place] [address] 68570 #### HA1C #### [facility] ([id number]) [address], [address] [place] [address] TROPONIN I, HIGH SENSITIVITY 10 ng/L Normal <21 [facility] Comment on above: Performed By: #### P INR, 73201-8, 10587-0, CBCA, 12036-4, CMP, 4548-4, 6873-4 #### [facility] ([id number]) [address] [place] [address] 06260 #### HA1C #### [facility] ([id number]) [address], [address] [place] [address] URN MACROSCOPIC NURon 2023 BILIRUBIN ALLYN Negative Normal NEG [facility] Comment on above: Performed By: #### P INR, 81601-4, 06663-2, CBCA, 79940-6, CMP, 4548-4, 6873-4 #### [facility] ([id number]) [address] [place] [address] 88081 #### HA1C #### [facility] ([id number]) [address] [facility] [address], [address] [place] [address] BLOOD/HGB ALLYN Large Abnormal NEG [facility] Comment on above: Performed By: #### P INR, 66652-0, 63787-1, CBCA, 27961-5, CMP, 4548-4, 6873-4 #### [facility] ([id number]) [address] [place] [address] 94181 #### HA1C #### [facility] ([id number]) [address], [address] [place] [address] GLUCOSE ALLYN Negative Normal NEG [facility] Comment on above: Performed By: #### P INR, 61666-5, 79937-5, CBCA, 89911-3, CMP, 4548-4, 6873-4 #### [facility] ([id number]) [address] [place] [address] 90606 #### HA1C #### [facility] ([id number]) [address], [address] [place] [address] KETONES ALLYN Negative Normal NEG [facility] Comment on above: Performed By: #### P INR, 33032-2, 72983-1, CBCA, 50079-2, CMP, 4548-4, 6873-4 #### [facility] ([id number]) [address] [place] [address] 59380 #### HA1C #### [facility] ([id number]) [address], [address] [place] [address] LEUKOCYTE ESTERASE ALLYN Negative Normal NEG [facility] Comment on above: Performed By: #### P INR, 21591-7, 29500-4, CBCA, 03161-3, CMP, 4548-4, 6873-4 #### [facility] ([id number]) [address] [place] [address] 66219 #### HA1C #### [facility] ([id number]) [address], [address] [place] [address] NITRITE ALLYN Negative Normal NEG [facility] Comment on above: Performed By: #### P INR, 76922-1, 74635-1, CBCA, 13154-8, CMP, 4548-4, 6873-4 #### [facility] ([id number]) [address] [place] [address] 74231 #### HA1C #### [facility] ([id number]) [address], [address] [place] [address] PH ALLYN 5.5 Normal 5.0-8.5 [facility] Comment on above: Performed By: #### P INR, 49230-8, 27308-4, CBCA, 05344-7, CMP, 4548-4, 6873-4 #### [facility] ([id number]) [address] [place] [address] 41990 #### HA1C #### [facility] ([id number]) [address] [facility], [address] [place] [address] PROTEIN ALLYN 30 mg/dL Abnormal NEG [facility] Comment on above: Performed By: #### P INR, 22249-8, 94448-6, CBCA, 76961-4, CMP, 4548-4, 6873-4 #### [facility] ([id number]) [address] [place] [address] 47364 #### HA1C #### [facility] ([id number]) [address] [place] [address], [address] [address] SPECIFIC GRAVITY ALLYN 1.025 Normal 1.003-1.035 [facility] Comment on above: Performed By: #### P INR, 93121-6, 37558-5, CBCA, 95327-2, CMP, 4548-4, 6873-4 #### [facility] ([id number]) [address] [place] [address] 39689 #### HA1C #### [facility] ([id number]) [address] [place] [address], [address] [place] [address] UROBILINOGEN ALLYN 0.2 eu/dL Normal <1.1 [facility] Comment on above: Performed By: #### P INR, 55111-6, 57866-8, CBCA, 84375-4, CMP, 4548-4, 6873-4 #### [facility] ([id number]) [address] [place] [address] 01163 #### HA1C #### [facility] ([id number]) [address] [place] [address], [address] [place] [address] BASIC METABOLIC PANLon 05-12 Anion gap [Moles/Vol] 8 mmol/L Normal 5-15 [facility] Comment on above: Performed By: #### P INR, 40961-2, 17780-0, CBCA, 23815-1, CMP, 4548-4, 6873-4 #### [facility] ([id number]) [address] [place] [address] 29646 #### HA1C #### [facility] ([id number]) [address], [address] [place] [address] Calcium [Mass/Vol] 8.9 mg/dL Normal 8.5-10.5 [facility] Comment on above: Performed By: #### P INR, 91218-4, 24021-2, CBCA, 87986-8, CMP, 4548-4, 6873-4 #### [facility] ([id number]) [address] [place] [address] 76217 #### HA1C #### [facility] ([id number]) [address], [address] [place] [address] Chloride [Moles/Vol] 102 mmol/L Normal 98-109 [facility] Comment on above: Performed By: #### P INR, 27214-3, 51520-6, CBCA, 83638-1, CMP, 4548-4, 6873-4 #### [facility] ([id number]) [address] [place] [address] 42529 #### HA1C #### [facility] ([id number]) [address], [address] [place] [address] CO2 [Moles/Vol] 26 mmol/L Normal 22-32 [facility] Comment on above: Performed By: #### P INR, 94627-6, 24749-3, CBCA, 00074-6, CMP, 4548-4, 6873-4 #### [facility] ([id number]) [address] [place] [address] 67793 #### HA1C #### [facility] ([id number]) [address], [address] [place] [address] Creatinine [Mass/Vol] 0.68 mg/dL Low 0.70-1.20 [facility] Comment on above: Result Comment: METH OD TRACEABLE TO IDMS STANDARD Performed By: #### P INR, 70102-5, 19230-6, CBCA, 05524-2, CMP, 4548-4, 6873-4 #### [facility] ([id number]) [address] [place] [address] 24718 #### HA1C #### [facility] ([id number]) [address], [address] [address] eGFR (CKD-EPI) NON-RACE DEPENDENT >90 Normal >59 [facility] Comment on above: Result Comment: Reported eGFR is based on the CKD-EPI 2020 equation that does not use a race coefficient. Performed By: #### P INR, 21134-0, 32532-4, CBCA, 38976-6, CMP, 4548-4, 6873-4 #### [facility] ([id number]) [address] [place] [address] 74251 #### HA1C #### [facility] ([id number]) [address], [address] [place] [address] Glucose [Mass/Vol] 143 mg/dL High 65-99 [facility] Comment on above: Performed By: #### P INR, 43732-9, 94259-2, CBCA, 96437-0, CMP, 4548-4, 6873-4 #### [facility] ([id number]) [address] [place] [address] 90038 #### HA1C #### [facility] ([id number]) [address], [address] [place] [address] Potassium [Moles/Vol] 3.7 mmol/L Normal 3.5-5.0 [facility] Comment on above: Performed By: #### P INR, 91212-9, 79123-5, CBCA, 19132-5, CMP, 4548-4, 6873-4 #### [facility] ([id number]) [address] [place] [address] 27244 #### HA1C #### [facility] ([id number]) [address], [address] [place] [address] Sodium [Moles/Vol] 136 mmol/L Normal 134-146 [facility] Comment on above: Performed By: #### P INR, 47173-1, 77260-2, CBCA, 86876-4, CMP, 4548-4, 6873-4 #### [facility] ([id number]) [address] [place] [address] 44733 #### HA1C #### [facility] ([id number]) [address], [address] [place] [address] Urea nitrogen [Mass/Vol] 22 mg/dL Normal 5-27 [facility] Comment on above: Performed By: #### P INR, 50980-4, 73960-8, CBCA, 92235-2, CMP, 4548-4, 6873-4 #### [facility] ([id number]) [address] [place] [address] 77307 #### HA1C #### [facility] ([id number]) [address], [address] [place] [address] CBC AND AUTO DIFFon -17-20 24 ABSOLUTE BASOPHIL 0.1 X10E9/L Normal 0.0-0.2 [facility] Comment on above: Performed By: #### P INR, 57844-6, 49828-8, CBCA, 90771-6, CMP, 4548-4, 6873-4 #### [facility] ([id number]) [address] [place] [address] 42978 #### HA1C #### [facility] ([id number]) [address], [address] [place] [address] ABSOLUTE NEUTROPHIL 2.2 X10E9/L Normal 1.5-6.6 [facility] Comment on above: Performed By: #### P INR, 97857-0, 17588-6, CBCA, 17925-2, CMP, 4548-4, 6873-4 #### [facility] ([id number]) [address] [place] [address] 58330 #### HA1C #### [facility] ([id number]) [address], [address] [place] [address] Basophils/100 WBC (Bld) 1.7 % Normal [facility] Comment on above: Performed By: #### P INR, 62826-6, 82355-5, CBCA, 88338-8, CMP, 4548-4, 6873-4 #### [facility] ([id number]) [address] [place] [address] 64146 #### HA1C #### [facility] ([id number]) [address], [address] [place] [address] Eosinophils (Bld) [#/Vol] 0.1 10*3/uL Normal 0.0-0.4 [facility] Comment on above: Performed By: #### P INR, 14941-7, 65949-6, CBCA, 86963-7, CMP, 4548-4, 6873-4 #### [facility] ([id number]) [address] [place] [address] 44471 #### HA1C #### [facility] ([id number]) [address], [address] [place] [address] Eosinophils/100 WBC (Bld) 3.2 % Normal [facility] Comment on above: Performed By: #### P INR, 20338-0, 16549-8, CBCA, 29664-4, CMP, 4548-4, 6873-4 #### [facility] ([id number]) [address] [place] [address] 13677 #### HA1C #### [facility] ([id number]) [address], [address] [place] [address] Erythrocyte distribution width (RBC) [Ratio] 15.2 % High 11.5-15.0 [facility] Comment on above: Performed By: #### P INR, 73232-7, 40390-5, CBCA, 79099-4, CMP, 4548-4, 6873-4 #### [facility] ([id number]) [address] [place] [address] 91596 #### DOROTEO1C #### [facility] ([id number]) [address], [address] [place] [address] Hematocrit (Bld) [Volume fraction] 33.1 % Low 39-49 [facility] Comment on above: Performed By: #### P INR, 76157-1, 00807-0, CBCA, 32710-1, CMP, 4548-4, 6873-4 #### [facility] ([id number]) [address] [place] [address] 80874 #### HA1C #### [facility] ([id number]) [address], [address] [place] [address] Hemoglobin (Bld) [Mass/Vol] 11.3 g/dL Low 13.0-17.0 [facility] Comment on above: Performed By: #### P INR, 54570-4, 32274-5, CBCA, 52011-8, CMP, 4548-4, 6873-4 #### [facility] ([id number]) [address] [place] [address] 11672 #### HA1C #### [facility] ([id number]) [address], [address] [place] [address] Lymphocytes (Bld) [#/Vol] 1.5 10*3/uL Normal 1.0-3.5 [facility] Comment on above: Performed By: #### P INR, 61761-2, 07598-1, CBCA, 86174-7, CMP, 4548-4, 6873-4 #### [facility] ([id number]) [address] [place] [address] 10752 #### HA1C #### [facility] ([id number]) [address], [address] [place] [address] Lymphocytes/100 WBC (Bld) 35.4 % Normal [facility] Comment on above: Performed By: #### P INR, 53963-1, 22996-7, CBCA, 31806-5, CMP, 4548-4, 6873-4 #### [facility] ([id number]) [address] [place] [address] 00585 #### HA1C #### [facility] ([id number]) [address], [address] [place] [address] MCH (RBC) [Entitic mass] 28.9 pg Normal 27-34 [facility] Comment on above: Performed By: #### P INR, 78708-0, 69735-2, CBCA, 10968-1, CMP, 4548-4, 6873-4 #### [facility] ([id number]) [address] [place] [address] 04568 #### HA1C #### [facility] ([id number]) [address], [address] [place] [address] MCHC (RBC) [Mass/Vol] 34.2 g/dL Normal 32-36 [facility] Comment on above: Performed By: #### P INR, 53417-7, 96444-5, CBCA, 75965-5, CMP, 4548-4, 6873-4 #### [facility] ([id number]) [address] [place] [address] 84858 #### HA1C #### [facility] ([id number]) [address], [address] [place] [address] MCV (RBC) [Entitic vol] 84 fL Normal 80-100 [facility] Comment on above: Performed By: #### P INR, 39031-1, 90563-8, CBCA, 63155-6, CMP, 4548-4, 6873-4 #### [facility] ([id number]) [address] [place] [address] 02673 #### HA1C #### [facility] ([id number]) [address] [facility], [address] [place] [address] Monocytes (Bld) [#/Vol] 0.3 10*3/uL Normal 0-0.9 [facility] Comment on above: Performed By: #### P INR, 49882-0, 14177-3, CBCA, 23240-9, CMP, 4548-4, 6873-4 #### [facility] ([id number]) [address] [place] [address] 85325 #### HA1C #### [facility] ([id number]) [address] [facility], [address] [place] [address] Monocytes/100 WBC (Bld) 7.8 % Normal P [facility] Comment on above: Performed By: #### P INR, 72273-9, 16993-9, CBCA, 36735-2, CMP, 4548-4, 6873-4 #### [facility] ([id number]) [address] [place] [address] 35541 #### HA1C #### [facility] ([id number]) [address] [facility], [address] [place] [address] Neutrophils/100 WBC (Bld) 51.9 % Normal [facility] Comment on above: Performed By: #### P INR, 05071-2, 15249-8, CBCA, 75380-9, CMP, 4548-4, 6873-4 #### [facility] ([id number]) [address] [place] [address] 40675 #### HA1C #### [facility] ([id number]) [address] [facility], [address] [place] [address] Platelet mean volume (Bld) [Entitic vol] 7.1 fL Normal 7-12 [facility] Comment on above: Performed By: #### P INR, 72617-5, 32533-7, CBCA, 94620-9, CMP, 4548-4, 6873-4 #### [facility] ([id number]) [address] [place] [address] 33119 #### HA1C #### [facility] ([id number]) [address] [place] [address], [address] [place] [address] Platelets (Bld) [#/Vol] 310 10*3/uL Normal 150-450 [facility] Comment on above: Performed By: #### P INR, 78752-1, 14742-0, CBCA, 43600-0, CMP, 4548-4, 6873-4 #### [facility] ([id number]) [address] [place] [address] 49565 #### HA1C #### [facility] ([id number]) [address] [place] [address], [address] [place] [address] RBC COUNT 3.93 X10E12/L Low 4.10-5.70 [facility] Comment on above: Performed By: #### P INR, 18772-7, 45493-4, CBCA, 82239-2, CMP, 4548-4, 6873-4 #### [facility] ([id number]) [address] [place] [address] #### HA1C #### [facility] ([id number]) [address], [address] [place] [address] WBC (Bld) [#/Vol] 4.3 10*3/uL Normal 4.0-11.0 [facility] Comment on above: Performed By: #### P INR, 25443-8, 05551-8, CBCA, 82943-2, CMP, 4548-4, 6873-4 #### [facility] ([id number]) [address] [place] [address] #### HA1C #### [facility] ([id number]) [address], [address] [place] [address] CT BRAIN WO CONTon CT BRAIN WO [...] Yuan MD on 05/12/2024 3:05 AM Normal [facility] PROTIME AND INRon 05-12-2024 INR Coag (PPP) [Relative time] 1.2 {INR} High 0.8-1.1 [facility] Comment on above: Performed By: #### P INR, 92868-8, 32637-3, CBCA, 55684-3, CMP, 4548-4, 6873-4 #### [facility] ([id number]) [address] [place] [address] #### HA1C #### [facility] ([id number]) [address], [address] [place] [address] PT Coag (PPP) [Time] 14.0 s High 9.8-13.2 [facility] Comment on above: Result Comment: NEW REFERENCE RANGE Performed By: #### P INR, 67919-4, 05431-0, CBCA, 22791-0, CMP, 4548-4, 6873-4 #### [facility] ([id number]) [address] [place] [address] #### HA1C #### [facility] ([id number]) [address], [address] [place] [address] aPTT Coag (PPP) [Time]on aPTT Coag (Bld) [Time] 30 s Normal 26-37 [facility] Comment on above: Result Comment: NEW REFERENCE RANGE Performed By: #### P INR, 40845-9, 09853-6, CBCA, 68744-6, CMP, 4548-4, 6873-4 #### [facility] ([id number]) [address] [place] [address] #### HA1C #### [facility] ([id number]) [address] [facility] [address] [place] [address] CBC AND AUTO DIFFon 04-21-20 24 ABSOLUTE BASOPHIL 0.0 X10E9/L Normal 0.0-0.2 [facility] Comment on above: Performed By: #### C BCA, CMP ####[facility] ([id number])[address], [address], [place] [address] ABSOLUTE NEUTROPHIL 2.8 X10E9/L Normal 1.5-6.6 [facility] Comment on above: Performed By: #### C BCA, CMP ####[facility] ([id number])[address], [address], [place] [address] Basophils/100 WBC (Bld) 0.7 % Normal P [facility] Comment on above: Performed By: #### C BCA, CMP ####[facility] ([id number])[address], [address] [address] Eosinophils (Bld) [#/Vol] 0.2 10*3/uL Normal 0.0-0.4 [facility] Comment on above: Performed By: #### C BCA, CMP ####[facility] ([id number])[address] [address], [place] [address] Eosinophils/100 WBC (Bld) 3.3 % Normal [facility] Comment on above: Performed By: #### C ZACHARY, CMP ####[facility] ([id number])[address], [place] [address] Erythrocyte distribution width (RBC) [Ratio] 16.2 % High 11.5-15.0 [facility] Comment on above: Performed By: #### C BCA, CMP ####[facility] ([id number])[address] [address], [place] [address] Hematocrit (Bld) [Volume fraction] 28.7 % Low 39-49 [facility] Comment on above: Performed By: #### C BCA, CMP ####[facility] ([id number])[address] [address], [place] [address] Hemoglobin (Bld) [Mass/Vol] 10.2 g/dL Low 13.0-17.0 [facility] Comment on above: Performed By: #### C BCA, CMP ####[facility] ([id number])[address], [address] [address] Lymphocytes (Bld) [#/Vol] 1.3 10*3/uL Normal 1.0-3.5 [facility] Comment on above: Performed By: #### C BCA, CMP ####[facility] ([id number])[address], [address] [address] Lymphocytes/100 WBC (Bld) 28.0 % Normal [facility] Comment on above: Performed By: #### C BCA, CMP ####[facility] ([id number])[address], [address] [address] MCH (RBC) [Entitic mass] 31.7 pg Normal 27-34 [facility] Comment on above: Performed By: #### C BCA, CMP ####[facility] ([id number])[address] [address] [address] MCHC (RBC) [Mass/Vol] 35.6 g/dL Normal 32-36 [facility] Comment on above: Performed By: #### C BCA, CMP ####[facility] ([id number])[address] [address] [address] MCV (RBC) [Entitic vol] 89 fL Normal 80-100 P [facility] Comment on above: Performed By: #### C BCA, CMP ####[facility] ([id number])[address] [address] [address] Monocytes (Bld) [#/Vol] 0.5 10*3/uL Normal 0-0.9 [facility] Comment on above: Performed By: #### C BCA, CMP ####[facility] ([id number])[address], [address] [address] Monocytes/100 WBC (Bld) 9.6 % Normal [facility] Comment on above: Performed By: #### C BCA, CMP ####[facility] ([id number])[address], [address], [place] [address] Neutrophils/100 WBC (Bld) 58.4 % Normal [facility] Comment on above: Performed By: #### C BCA, CMP ####[facility] ([id number])[address], [address] [place] [address] Platelet mean volume (Bld) [Entitic vol] 7.3 fL Normal 7-12 [facility] Comment on above: Performed By: #### C BCA, CMP ####[facility] ([id number])[address] [address] Platelets (Bld) [#/Vol] 249 10*3/uL Normal 150-450 [facility] Comment on above: Performed By: #### C BCA, CMP ####[facility] ([id number])[address] [address], [place] [address] RBC COUNT 3.23 X10E12/L Low 4.10-5.70 [facility] Comment on above: Performed By: #### C BCA, CMP ####[facility] ([id number])[address] [address] WBC (Bld) [#/Vol] 4.8 10*3/uL Normal 4.0-11.0 [facility] Comment on above: Performed By: #### C BCA, CMP ####[facility] ([id number])[address], [address] [place] [address] COMPREHENSIVE METABOLIC PANE [facility] [place] 04-21-2024 Albumin [Mass/Vol] 3.6 g/dL Normal 3.2-5.3 [facility] Comment on above: Performed By: #### C BCA, CMP ####[facility] ([id number])[address], [address], [place] [address] ALP [Catalytic activity/Vol] 78 U/L Normal 39-130 [facility] Comment on above: Performed By: #### C BCA, CMP ####[facility] ([id number])[address], [address], [place] [address] ALT [Catalytic activity/Vol] 27 U/L Normal 0-40 [facility] Comment on above: Performed By: #### C BCA, CMP ####[facility] ([id number])[address], [address], [place] [address] Anion gap [Moles/Vol] 9 mmol/L Normal 5-15 [facility] Comment on above: Performed By: #### C BCA, CMP ####[facility] ([id number])[address], [address], [place] [address] AST [Catalytic activity/Vol] 13 U/L Normal 0-41 [facility] Comment on above: Performed By: #### C BCA, CMP ####[facility] ([id number])[address], [address], [place] [address] Bilirubin [Mass/Vol] 0.4 mg/dL Normal 0.3-1.2 [facility] Comment on above: Performed By: #### C BCA, CMP ####[facility] ([id number])[address], [address], [place] [address] Calcium [Mass/Vol] 8.8 mg/dL Normal 8.5-10.5 [facility] Comment on above: Performed By: #### C BCA, CMP ####[facility] ([id number])[address], [address], [place] [address] Chloride [Moles/Vol] 100 mmol/L Normal 98-109 [facility] Comment on above: Performed By: #### C BCA, CMP ####[facility] ([id number])[address] [address], [place] [address] CO2 [Moles/Vol] 28 mmol/L Normal 22-32 [facility] Comment on above: Performed By: #### C BCA, CMP ####[facility] ([id number])[address] [address], [place] [address] Creatinine [Mass/Vol] 0.70 mg/dL Normal 0.60-1.30 [facility] Comment on above: Result Comment: METH OD TRACEABLE TO IDMS STANDARD Performed By: #### C BCA, CMP ####[facility] ([id number])[address] [address] eGFR (CKD-EPI) NON-RACE DEPENDENT >90 Normal >59 [facility] Comment on above: Result Comment: Reported eGFR is based on the CKD-EPI 2020 equation that does not use a race coefficient. Performed By: #### C BCA, CMP ####[facility] ([id number])[address] [address], [place] [address] Glucose [Mass/Vol] 159 mg/dL High 65-99 [facility] Comment on above: Performed By: #### C BCA, CMP ####[facility] ([id number])[address] [address] [place] [address] Potassium [Moles/Vol] 4.2 mmol/L Normal 3.5-5.0 [facility] Comment on above: Performed By: #### C BCA, CMP ####[facility] ([id number])[address] [address] Protein [Mass/Vol] 5.6 g/dL Low 6.0-8.0 [facility] Comment on above: Performed By: #### C BCA, CMP ####[facility] ([id number])[address] [place] [address] Sodium [Moles/Vol] 137 mmol/L Normal 134-146 [facility] Comment on above: Performed By: #### C ZACHARY, CMP ####[facility] ([id number])[address], [address], [place] [address] Urea nitrogen [Mass/Vol] 17 mg/dL Normal 5-27 [facility] Comment on above: Performed By: #### C ZACHARY, CMP ####[facility] ([id number])[address], [address], [place] [address] Glucose Glucometer (BldC) [M ass/Vol]on 04-21-2024 Glucose [Mass/Vol] 234 mg/dL High 65-99 [facility] Glucose [Mass/Vol] 143 mg/dL High 65-99 [facility] CBC AND AUTO DIFFon 04-20-20 ABSOLUTE BASOPHIL 0.1 X10E9/L Normal 0.0-0.2 [facility] Comment on above: Performed By: #### C ZACHARY, NAHOMY, 13475-0 #### [facility] ([id number]) [address], [address] [place] [address] ABSOLUTE NEUTROPHIL 2.9 X10E9/L Normal 1.5-6.6 [facility] Comment on above: Performed By: #### Thais SHARMA CMP, 36171-5 #### [facility] ([id number]) [address], [address] [place] [address] Basophils/100 WBC (Bld) 1.1 % Normal P [facility] Comment on above: Performed By: #### Thais SHARMA CMP, 46485-7 #### [facility] ([id number]) [address], [address] [place] [address] Eosinophils (Bld) [#/Vol] 0.1 10*3/uL Normal 0.0-0.4 [facility] Comment on above: Performed By: #### C ZACHARY, CMP, 47495-5 #### [facility] ([id number]) [address], [address] [place] [address] Eosinophils/100 WBC (Bld) 2.7 % Normal [facility] Comment on above: Performed By: #### C ZACHARY, CMP, 43394-5 #### [facility] ([id number]) [address], [address] [place] [address] Erythrocyte distribution width (RBC) [Ratio] 15.8 % High 11.5-15.0 [facility] Comment on above: Performed By: #### C ZACHARY, CMP, 01742-7 #### [facility] ([id number]) [address], [address] [place] [address] Hematocrit (Bld) [Volume fraction] 30.3 % Low 39-49 [facility] Comment on above: Performed By: #### Thais SHARMA, CMP, 97441-9 #### [facility] ([id number]) [address] [place] [address] Hemoglobin (Bld) [Mass/Vol] 10.5 g/dL Low 13.0-17.0 [facility] Comment on above: Performed By: #### Thais SHARMA, CMP, 63990-1 #### [facility] ([id number]) [address] [place] [address] Lymphocytes (Bld) [#/Vol] 1.2 10*3/uL Normal 1.0-3.5 [facility] Comment on above: Performed By: #### C ZACHARY, CMP, 60760-3 #### [facility] ([id number]) [address], [address] [place] [address] Lymphocytes/100 WBC (Bld) 25.4 % Normal [facility] Comment on above: Performed By: #### C BCA, CMP, 79180-5 #### [facility] ([id number]) [address] [place] [address] MCH (RBC) [Entitic mass] 30.5 pg Normal 27-34 [facility] Comment on above: Performed By: #### C BCA, CMP, 49228-1 #### [facility] ([id number]) [address], [address] [place] [address] MCHC (RBC) [Mass/Vol] 34.5 g/dL Normal 32-36 [facility] Comment on above: Performed By: #### C BCA, CMP, 85523-0 #### [facility] ([id number]) [address], [address] [place] [address] MCV (RBC) [Entitic vol] 88 fL Normal 80-100 P [facility] Comment on above: Performed By: #### Thais BCA, CMP, 27766-5 #### [facility] ([id number]) [address], [address] [place] [address] Monocytes (Bld) [#/Vol] 0.4 10*3/uL Normal 0-0.9 [facility] Comment on above: Performed By: #### C BCA, CMP, 87206-3 #### [facility] ([id number]) [address], [address] [place] [address] Monocytes/100 WBC (Bld) 9.3 % Normal P [facility] Comment on above: Performed By: #### C BCA, CMP, 28344-7 #### [facility] ([id number]) [address], [address] [place] [address] Neutrophils/100 WBC (Bld) 61.5 % Normal [facility] Comment on above: Performed By: #### C BCA, CMP, 59370-1 #### [facility] ([id number]) [address], [address] [place] [address] Platelet mean volume (Bld) [Entitic vol] 7.1 fL Normal 7-12 [facility] Comment on above: Performed By: #### C BCA, CMP, 32730-7 #### [facility] ([id number]) [address], [address] [place] [address] Platelets (Bld) [#/Vol] 291 10*3/uL Normal 150-450 [facility] Comment on above: Performed By: #### C BCA, CMP, 81794-4 #### [facility] ([id number]) [address], [facility] [address] [place] [address] RBC COUNT 3.43 X10E12/L Low 4.10-5.70 [facility] Comment on above: Performed By: #### C BCA, CMP, 30291-2 #### [facility] ([id number]) [address], [address] [place] [address] WBC (Bld) [#/Vol] 4.7 10*3/uL Normal 4.0-11.0 [facility] Comment on above: Performed By: #### C BCA, CMP, 23895-9 #### [facility] ([id number]) [address], [address] [place] [address] COMPREHENSIVE METABOLIC PANE [place] 04-20-2024 Albumin [Mass/Vol] 3.9 g/dL Normal 3.2-5.3 [facility] Comment on above: Performed By: #### C BCA, CMP, 06612-0 #### [facility] ([id number]) [address], [address] [place] [address] ALP [Catalytic activity/Vol] 94 U/L Normal 39-130 [facility] Comment on above: Performed By: #### C BCA, CMP, 72487-3 #### [facility] ([id number]) [address], [address] [place] [address] ALT [Catalytic activity/Vol] 41 U/L High 0-40 [facility] Comment on above: Performed By: #### C BCA, CMP, 24013-2 #### [facility] ([id number]) [address], [address] [place] [address] Anion gap [Moles/Vol] 9 mmol/L Normal 5-15 [facility] Comment on above: Performed By: #### C BCA, CMP, 88621-0 #### [facility] ([id number]) [address] [place] [address] AST [Catalytic activity/Vol] 22 U/L Normal 0-41 [facility] Comment on above: Performed By: #### C BCA, CMP, 55672-5 #### [facility] ([id number]) [address], [address] [place] [address] Bilirubin [Mass/Vol] 0.6 mg/dL Normal 0.3-1.2 [facility] Comment on above: Performed By: #### C BCA, CMP, 84106-0 #### [facility] ([id number]) [address] [place] [address] Calcium [Mass/Vol] 9.1 mg/dL Normal 8.5-10.5 [facility] Comment on above: Performed By: #### C BCA, CMP, 06286-6 #### [facility] ([id number]) [address], [address] [place] [address] Chloride [Moles/Vol] 98 mmol/L Normal 98-109 [facility] Comment on above: Performed By: #### C BCA, CMP, 30686-4 #### [facility] ([id number]) [address] [place] [address] CO2 [Moles/Vol] 30 mmol/L Normal 22-32 [facility] Comment on above: Performed By: #### C BCA, CMP, 87992-0 #### [facility] ([id number]) [address] [address] [place] [address] Creatinine [Mass/Vol] 0.69 mg/dL Normal 0.60-1.30 [facility] Comment on above: Result Comment: METH OD TRACEABLE TO IDMS STANDARD Performed By: #### C BCA, CMP, 89189-5 #### [facility] ([id number]) [address], [facility] [address] [place] [address] eGFR (CKD-EPI) NON-RACE DEPENDENT >90 Normal >59 [facility] Comment on above: Result Comment: Reported eGFR is based on the CKD-EPI 2020 equation that does not use a race coefficient. Performed By: #### C BCA, CMP, 69780-0 #### [facility] ([id number]) [address] [address] [place] [address] Glucose [Mass/Vol] 204 mg/dL High 65-99 [facility] Comment on above: Performed By: #### C BCA, CMP, 82498-3 #### [facility] ([id number]) [address] [address] [place] [address] Potassium [Moles/Vol] 4.3 mmol/L Normal 3.5-5.0 [facility] Comment on above: Performed By: #### C BCA, CMP, 60470-9 #### [facility] ([id number]) [address] [address] [place] [address] Protein [Mass/Vol] 6.2 g/dL Normal 6.0-8.0 [facility] Comment on above: Performed By: #### C BCA, CMP, 52064-4 #### [facility] ([id number]) [address] [address] [place] [address] Sodium [Moles/Vol] 137 mmol/L Normal 134-146 [facility] Comment on above: Performed By: #### C BCA, CMP, 14686-5 #### [facility] ([id number]) [address], [address] [place] [address] Urea nitrogen [Mass/Vol] 11 mg/dL Normal 5-27 [facility] Comment on above: Performed By: #### C ZACHARY, CMP, 06038-9 #### [facility] ([id number]) [address] [place] [address] Glucose Glucometer (BldC) [M ass/Vol]on 04-20-2024 Glucose [Mass/Vol] 287 mg/dL High 65-99 [facility] Glucose [Mass/Vol] 263 mg/dL High 65-99 [facility] Glucose [Mass/Vol] 231 mg/dL High 65-99 [facility] Glucose [Mass/Vol] 176 mg/dL High 65-99 [facility] CBC AND AUTO DIFFon 04-19-20 ABSOLUTE BASOPHIL 0.0 X10E9/L Normal 0.0-0.2 [facility] Comment on above: Performed By: #### C ZACHARY, CMP, 76810-9 #### [facility] ([id number]) [address], [address] [place] [address] ABSOLUTE NEUTROPHIL 2.1 X10E9/L Normal 1.5-6.6 [facility] Comment on above: Performed By: #### C BCA, CMP, 16784-3 #### [facility] ([id number]) [address] [place] [address] Basophils/100 WBC (Bld) 1.2 % Normal P [facility] Comment on above: Performed By: #### C BCA, CMP, 58702-4 #### [facility] ([id number]) [address] [place] [address] Eosinophils (Bld) [#/Vol] 0.1 10*3/uL Normal 0.0-0.4 [facility] Comment on above: Performed By: #### C BCA, CMP, 95078-6 #### [facility] ([id number]) [address], [address] [place] [address] Eosinophils/100 WBC (Bld) 3.6 % Normal [facility] Comment on above: Performed By: #### C BCA, CMP, 88275-0 #### [facility] ([id number]) [address], [address] [place] [address] Erythrocyte distribution width (RBC) [Ratio] 15.5 % High 11.5-15.0 [facility] Comment on above: Performed By: #### C ZACHARY, CMP, 18991-2 #### [facility] ([id number]) [address] [place] [address] Hematocrit (Bld) [Volume fraction] 29.4 % Low 39-49 [facility] Comment on above: Performed By: #### Thais BCA, CMP, 47002-4 #### [facility] ([id number]) [address] [place] [address] Hemoglobin (Bld) [Mass/Vol] 10.1 g/dL Low 13.0-17.0 [facility] Comment on above: Performed By: #### Thais BCA, CMP, 79143-1 #### [facility] ([id number]) [address] [place] [address] Lymphocytes (Bld) [#/Vol] 1.0 10*3/uL Normal 1.0-3.5 [facility] Comment on above: Performed By: #### C BCA, CMP, 83400-9 #### [facility] ([id number]) [address], [address] [place] [address] Lymphocytes/100 WBC (Bld) 28.5 % Normal [facility] Comment on above: Performed By: #### Thais BCA, CMP, 56253-3 #### [facility] ([id number]) [address], [address] [place] [address] MCH (RBC) [Entitic mass] 30.8 pg Normal 27-34 [facility] Comment on above: Performed By: #### C BCA, CMP, 59535-4 #### [facility] ([id number]) [address], [address] [place] [address] MCHC (RBC) [Mass/Vol] 34.4 g/dL Normal 32-36 [facility] Comment on above: Performed By: #### C BCA, CMP, 10999-6 #### [facility] ([id number]) [address], [address] [place] [address] MCV (RBC) [Entitic vol] 89 fL Normal 80-100 P [facility] Comment on above: Performed By: #### Thais BCA, CMP, 64626-4 #### [facility] ([id number]) [address] [place] [address] Monocytes (Bld) [#/Vol] 0.3 10*3/uL Normal 0-0.9 [facility] Comment on above: Performed By: #### C BCA, CMP, 32711-4 #### [facility] ([id number]) [address] [place] [address] Monocytes/100 WBC (Bld) 8.3 % Normal P [facility] Comment on above: Performed By: #### C BCA, CMP, 94087-9 #### [facility] ([id number]) [address], [address] [place] [address] Neutrophils/100 WBC (Bld) 58.4 % Normal [facility] Comment on above: Performed By: #### C BCA, CMP, 48227-9 #### [facility] ([id number]) [address], [address] [place] [address] Platelet mean volume (Bld) [Entitic vol] 7.1 fL Normal 7-12 [facility] Comment on above: Performed By: #### C BCA, CMP, 92286-3 #### [facility] ([id number]) [address], [facility] [address] [place] [address] Platelets (Bld) [#/Vol] 264 10*3/uL Normal 150-450 [facility] Comment on above: Performed By: #### C BCA, CMP, 70285-0 #### [facility] ([id number]) [address], [facility] [address] [place] [address] RBC COUNT 3.29 X10E12/L Low 4.10-5.70 [facility] Comment on above: Performed By: #### C BCA, CMP, 38219-0 #### [facility] ([id number]) [address] [address] WBC (Bld) [#/Vol] 3.6 10*3/uL Low 4.0-11.0 [facility] Comment on above: Performed By: #### C BCA, CMP, 48023-0 #### [facility] ([id number]) [address], [facility] [address] [place] [address] COMPREHENSIVE METABOLIC PANE [place] 04-19-2024 Albumin [Mass/Vol] 3.8 g/dL Normal 3.2-5.3 [facility] Comment on above: Performed By: #### C BCA, CMP, 39563-4 #### [facility] ([id number]) [address], [address] [place] [address] ALP [Catalytic activity/Vol] 91 U/L Normal 39-130 [facility] Comment on above: Performed By: #### C BCA, CMP, 68201-8 #### [facility] ([id number]) [address], [facility] [address] [place] [address] ALT [Catalytic activity/Vol] 40 U/L Normal 0-40 [facility] Comment on above: Performed By: #### C ZACHARY, CMP, 85319-0 #### [facility] ([id number]) [address], [address] [place] [address] Anion gap [Moles/Vol] 10 mmol/L Normal 5-15 [facility] Comment on above: Performed By: #### C ZACHARY, CMP, 40558-9 #### [facility] ([id number]) [address], [address] [place] [address] AST [Catalytic activity/Vol] 24 U/L Normal 0-41 [facility] Comment on above: Performed By: #### C BCA, CMP, 78798-4 #### [facility] ([id number]) [address], [address] [place] [address] Bilirubin [Mass/Vol] 0.7 mg/dL Normal 0.3-1.2 [facility] Comment on above: Performed By: #### C BCA, CMP, 07593-7 #### [facility] ([id number]) [address], [address] [place] [address] Calcium [Mass/Vol] 9.0 mg/dL Normal 8.5-10.5 [facility] Comment on above: Performed By: #### C BCA, CMP, 02600-9 #### [facility] ([id number]) [address], [address] [place] [address] Chloride [Moles/Vol] 100 mmol/L Normal 98-109 [facility] Comment on above: Performed By: #### C BCA, CMP, 13478-7 #### [facility] ([id number]) [address], [address] [place] [address] CO2 [Moles/Vol] 27 mmol/L Normal 22-32 [facility] Comment on above: Performed By: #### C BCA, CMP, 49651-4 #### [facility] ([id number]) [address] [address] [place] [address] Creatinine [Mass/Vol] 0.62 mg/dL Normal 0.60-1.30 [facility] Comment on above: Result Comment: METH OD TRACEABLE TO IDMS STANDARD Performed By: #### C ZACHARY, CMP, 17414-6 #### [facility] ([id number]) [address] [place] [address] eGFR (CKD-EPI) NON-RACE DEPENDENT >90 Normal >59 [facility] Comment on above: Result Comment: Reported eGFR is based on the CKD-EPI 2020 equation that does not use a race coefficient. Performed By: #### C ZACHARY, CMP, 85088-0 #### [facility] ([id number]) [address], [address] [place] [address] Glucose [Mass/Vol] 124 mg/dL High 65-99 [facility] Comment on above: Performed By: #### C ZACHARY, CMP, 26285-3 #### [facility] ([id number]) [address] [address] [place] [address] Potassium [Moles/Vol] 3.8 mmol/L Normal 3.5-5.0 [facility] Comment on above: Performed By: #### C BCA, CMP, 31685-5 #### [facility] ([id number]) [address] [address] [place] [address] Protein [Mass/Vol] 6.0 g/dL Normal 6.0-8.0 [facility] Comment on above: Performed By: #### C BCA, CMP, 76719-8 #### [facility] ([id number]) [address] [facility] [address] [place] [address] Sodium [Moles/Vol] 137 mmol/L Normal 134-146 [facility] Comment on above: Performed By: #### Thais SHARMA CMP, 28568-8 #### [facility] ([id number]) [address], [address] [place] [address] Urea nitrogen [Mass/Vol] 7 mg/dL Normal 5-27 [facility] Comment on above: Performed By: #### Thais SHARMA, CMP, 76855-5 #### [facility] ([id number]) [address], [address] [place] [address] Folate [Mass/Vol]on 04-19-20 FOLIC ACID 8.1 ng/mL Normal >5.8 [facility] Comment on above: Result Comment: NEW REFERENCE RANGE Performed By: #### Thais SHARMA CMP, 64875-4 #### [facility] ([id number]) [address], [address] [place] [address] Glucose Glucometer (BldC) [M ass/Vol]on 04-19-2024 Glucose [Mass/Vol] 142 mg/dL High 65-99 [facility] Glucose [Mass/Vol] 129 mg/dL High 65-99 [facility] Glucose [Mass/Vol] 119 mg/dL High 65-99 [facility] Glucose [Mass/Vol] 132 mg/dL High 65-99 [facility] HGB AND HCTon 04-19-2024 Hematocrit (Bld) [Volume fraction] 32.0 % Low 39-49 [facility] Comment on above: Performed By: #### Thais SHARMA, CMP, 27280-7 #### [facility] ([id number]) [address], [address] [place] [address] Hemoglobin (Bld) [Mass/Vol] 11.1 g/dL Low 13.0-17.0 [facility] Comment on above: Performed By: #### Thais SHARMA, CMP, 40253-9 #### [facility] ([id number]) [address], [address] [place] [address] Surgical Pathologyon 024 Surgical Pathology Normal [facility] Comment on above: Result Comment: [facility] [address] [place] [address] Surgical Pathology Consultation Patient Name:VASHTI RIVERA:1955 (Age: 68)Gender:MTaken:4Reported:04/22/2024hysician(s):Joshua Craft MD ( )Copy To: Rec. #:[id number]: #[id number] Final Pathologic Diagnosis 1. Transverse colon polyp: Tubular adenoma. 2. Transverse colon polyp #2; EMR: Tubular adenoma fragments. Report Electronically Signed Out st/04/22/2024Bee Ontiveros MD Interpretation performed at [facility] [place], [address] [place], [address], License number: [id number]. Clinical History Iron deficiency anemia, unspecified iron deficiency anemia type. Gross Description 1. Received in formalin labeled BRYSON, transverse colon polyp are eight pale black feathery soft tissue bits admixed with friable vegetative material, 0.1-0.6 cm. The specimen is filtered and entirely submitted in a single cassette. (1, ns, [id number],m8) DM. 2. Received in formalin labeled BRYSON, transverse colon polyp #2 is a pale-black polyp, 1.1 x 0.8 x 0.5 cm. The resection margin is inked black. The specimen is serially sectioned and entirely submitted in cassette A. Also received in the container are eight pale-black feathery soft tissue fragments, 0.1-0.6 cm. These are submitted in cassette B. (2, ns, [id number],m8) DM. dm/04/20/2024NSK Specimen(s) Received 1: Transverse colon polyp 2: Transverse colon polyp #2; EMR Fee Codes(s): 1; 48446 2; 42607 THYROID PROFILEon 04-19-2024 Free T4 [Mass/Vol] 1.13 ng/dL Normal 0.61-1.60 [facility] Comment on above: Performed By: #### C NAHOMY SHARMA, 10387-8 #### [facility] ([id number]) [address] [facility], [address] [place] [address] TSH 5.50 uIU/mL High 0.49-4.67 [facility] Comment on above: Performed By: #### C BCA, CMP, 74487-1 #### [facility] ([id number]) [address] [facility] [place] [address] Thiamine (Bld) [Mass/Vol]on 04-19-2024 THIAMIN VITAMIN B1 See Below Normal [facility] Comment on above: Result Comment: NOTE [...] developed and its performance characteristics determined by [facility]'s [facility] [place] [facility]). It has not been cleared or approved by the FDA. -[facility] is regulated under CLIA as qualified to perform high-complexity testing. This test is used for clinical purposes. It should not be regarded as investigational or for research. Test Performed By: [facility] [employer] [address] [place] [address] Filing Or Registry Clerk: Bijan Murphy III, M.D. CLIA #[id number] Performed By: #### C ZACHARY, NAHOMY, 85590-1 #### [facility] ([id number]) [address] [facility] [facility], [address] [place] [address] VITAMIN B12on 04-19-2024 Cobalamin (Vitamin B12) [Mass/Vol] pg/mL High 180-914 [facility] Comment on above: Performed By: #### C BCA, CMP, 93362-6 #### [facility] ([id number]) [address], [address] [place] [address] CBC AND AUTO DIFFon 04-18-20 ABSOLUTE BASOPHIL 0.0 X10E9/L Normal 0.0-0.2 [facility] Comment on above: Performed By: #### C BCA, CMP, 46743-6 #### [facility] ([id number]) [address], [address] [place] [address] ABSOLUTE NEUTROPHIL 2.5 X10E9/L Normal 1.5-6.6 [facility] Comment on above: Performed By: #### C BCA, CMP, 25122-7 #### [facility] ([id number]) [address], [address] [place] [address] Basophils/100 WBC (Bld) 0.9 % Normal [facility] Comment on above: Performed By: #### C BCA, CMP, 14231-8 #### [facility] ([id number]) [address], [address] [place] [address] Eosinophils (Bld) [#/Vol] 0.1 10*3/uL Normal 0.0-0.4 [facility] Comment on above: Performed By: #### C BCA, CMP, 06344-4 #### [facility] ([id number]) [address], [address] [place] [address] Eosinophils/100 WBC (Bld) 2.4 % Normal [facility] Comment on above: Performed By: #### C BCA, CMP, 22375-7 #### [facility] ([id number]) [address], [address] [place] [address] Erythrocyte distribution width (RBC) [Ratio] 15.9 % High 11.5-15.0 [facility] Comment on above: Performed By: #### Thais SHARMA CMP, 25516-3 #### [facility] ([id number]) [address], [address] [place] [address] Hematocrit (Bld) [Volume fraction] 27.5 % Low 39-49 [facility] Comment on above: Performed By: #### Thais SHARMA CMP, 61134-8 #### [facility] ([id number]) [address], [address] [place] [address] Hemoglobin (Bld) [Mass/Vol] 9.6 g/dL Low 13.0-17.0 [facility] Comment on above: Performed By: #### Thais SHARMA CMP, 54241-0 #### [facility] ([id number]) [address], [address] [place] [address] Lymphocytes (Bld) [#/Vol] 0.8 10*3/uL Low 1.0-3.5 [facility] Comment on above: Performed By: #### Thais SHARMA CMP, 11281-8 #### [facility] ([id number]) [address], [address] [place] [address] Lymphocytes/100 WBC (Bld) 22.0 % Normal [facility] Comment on above: Performed By: #### Thais SHARMA CMP, 80064-6 #### [facility] ([id number]) [address], [address] [place] [address] MCH (RBC) [Entitic mass] 31.2 pg Normal 27-34 [facility] Comment on above: Performed By: #### Thais SHARMA CMP, 15962-7 #### [facility] ([id number]) [address], [address] [place] [address] MCHC (RBC) [Mass/Vol] 34.8 g/dL Normal 32-36 [facility] Comment on above: Performed By: #### C BCA, CMP, 24324-6 #### [facility] ([id number]) [address], [address] [place] [address] MCV (RBC) [Entitic vol] 90 fL Normal 80-100 P [facility] Comment on above: Performed By: #### C BCA, CMP, 43199-1 #### [facility] ([id number]) [address], [address] [place] [address] Monocytes (Bld) [#/Vol] 0.2 10*3/uL Normal 0-0.9 [facility] Comment on above: Performed By: #### C BCA, CMP, 78542-1 #### [facility] ([id number]) [address], [address] [place] [address] Monocytes/100 WBC (Bld) 6.4 % Normal P [facility] Comment on above: Performed By: #### Thais BCA, CMP, 82857-1 #### [facility] ([id number]) [address], [address] [place] [address] Neutrophils/100 WBC (Bld) 68.3 % Normal [facility] Comment on above: Performed By: #### C BCA, CMP, 62901-0 #### [facility] ([id number]) [address], [address] [place] [address] Platelet mean volume (Bld) [Entitic vol] 6.9 fL Low 7-12 [facility] Comment on above: Performed By: #### C BCA, CMP, 19474-1 #### [facility] ([id number]) [address], [address] [place] [address] Platelets (Bld) [#/Vol] 251 10*3/uL Normal 150-450 [facility] Comment on above: Performed By: #### C BCA, CMP, 47589-5 #### [facility] ([id number]) [address], [address] [place] [address] RBC COUNT 3.07 X10E12/L Low 4.10-5.70 [facility] Comment on above: Performed By: #### C BCA, CMP, 35802-2 #### [facility] ([id number]) [address], [address] [place] [address] WBC (Bld) [#/Vol] 3.6 10*3/uL Low 4.0-11.0 [facility] Comment on above: Performed By: #### C BCA, CMP, 16451-2 #### [facility] ([id number]) [address], [address] [place] [address] COMPREHENSIVE METABOLIC PANE [place] 04-18-2024 Albumin [Mass/Vol] 3.6 g/dL Normal 3.2-5.3 [facility] Comment on above: Performed By: #### C BCA, CMP, 41454-2 #### [facility] ([id number]) [address], [address] [place] [address] ALP [Catalytic activity/Vol] 85 U/L Normal 39-130 [facility] Comment on above: Performed By: #### C BCA, CMP, 68920-2 #### [facility] ([id number]) [address], [address] [place] [address] ALT [Catalytic activity/Vol] 41 U/L High 0-40 [facility] Comment on above: Performed By: #### C BCA, CMP, 52755-1 #### [facility] ([id number]) [address], [address] [place] [address] Anion gap [Moles/Vol] 11 mmol/L Normal 5-15 [facility] Comment on above: Performed By: #### C BCA, CMP, 17601-2 #### [facility] ([id number]) [address], [address] [place] [address] AST [Catalytic activity/Vol] 26 U/L Normal 0-41 [facility] Comment on above: Performed By: #### C BCA, CMP, 39856-0 #### [facility] ([id number]) [address], [address] [place] [address] Bilirubin [Mass/Vol] 0.7 mg/dL Normal 0.3-1.2 [facility] Comment on above: Performed By: #### C BCA, CMP, 01536-4 #### [facility] ([id number]) [address], [address] [place] [address] Calcium [Mass/Vol] 8.6 mg/dL Normal 8.5-10.5 [facility] Comment on above: Performed By: #### C BCA, CMP, 18491-4 #### [facility] ([id number]) [address], [address] [place] [address] Chloride [Moles/Vol] 100 mmol/L Normal 98-109 [facility] Comment on above: Performed By: #### C BCA, CMP, 06823-9 #### [facility] ([id number]) [address], [address] [place] [address] CO2 [Moles/Vol] 25 mmol/L Normal 22-32 [facility] Comment on above: Performed By: #### C BCA, CMP, 44639-5 #### [facility] ([id number]) [address], [address] [place] [address] Creatinine [Mass/Vol] 0.59 mg/dL Low 0.60-1.30 [facility] Comment on above: Result Comment: METH OD TRACEABLE TO IDMS STANDARD Performed By: #### C BCA, CMP, 45419-6 #### [facility] ([id number]) [address], [address] [place] [address] eGFR (CKD-EPI) NON-RACE DEPENDENT >90 Normal >59 [facility] Comment on above: Result Comment: Reported eGFR is based on the CKD-EPI 2020 equation that does not use a race coefficient. Performed By: #### C BCA, CMP, 05835-6 #### [facility] ([id number]) [address], [address] [place] [address] Glucose [Mass/Vol] 104 mg/dL High 65-99 [facility] Comment on above: Performed By: #### C BCA, CMP, 75064-2 #### [facility] ([id number]) [address] [address] [address] [place] [address] Potassium [Moles/Vol] 3.7 mmol/L Normal 3.5-5.0 [facility] Comment on above: Performed By: #### C BCA, CMP, 77994-7 #### [facility] ([id number]) [address], [address] [place] [address] Protein [Mass/Vol] 5.7 g/dL Low 6.0-8.0 [facility] Comment on above: Performed By: #### C BCA, CMP, 66327-6 #### [facility] ([id number]) [address], [address] [place] [address] Sodium [Moles/Vol] 136 mmol/L Normal 134-146 [facility] Comment on above: Performed By: #### C BCA, CMP, 75427-6 #### [facility] ([id number]) [address] [address] [place] [address] Urea nitrogen [Mass/Vol] 12 mg/dL Normal 5-27 [facility] Comment on above: Performed By: #### C BCA, CMP, 20674-4 #### [facility] ([id number]) [address] [address] Glucose Glucometer (BldC) [M ass/Vol]on 04-18-2024 Glucose [Mass/Vol] 135 mg/dL High 65-99 [facility] Glucose [Mass/Vol] 168 mg/dL High 65-99 [facility] Glucose [Mass/Vol] 169 mg/dL High 65-99 [facility] HGB AND HCTon 04-18-2024 Hematocrit (Bld) [Volume fraction] 27.9 % Low 39-49 [facility] Comment on above: Performed By: #### Thais SHARMA CMP, 17422-0 #### [facility] ([id number]) [address], [address] [address] Hemoglobin (Bld) [Mass/Vol] 9.6 g/dL Low 13.0-17.0 [facility] Comment on above: Performed By: #### Thais SHARMA CMP, 40770-2 #### [facility] ([id number]) [address], [address] [address] POTASSIUMon 04-18-2024 Potassium [Moles/Vol] 4.4 mmol/L Normal 3.5-5.0 [facility] Comment on above: Performed By: #### Thais SHARMA, CMP, 42294-5 #### [facility] ([id number]) [address], [address] [address] CBC AND AUTO DIFFon 04-17-20 ABSOLUTE BASOPHIL 0.0 X10E9/L Normal 0.0-0.2 [facility] Comment on above: Performed By: #### Thais SHARMA, CMP, 33140-2 #### [facility] ([id number]) [address] [address] ABSOLUTE NEUTROPHIL 2.5 X10E9/L Normal 1.5-6.6 [facility] Comment on above: Performed By: #### Thais SHARMA, CMP, 00102-7 #### [facility] ([id number]) [address], [address] [place] [address] Basophils/100 WBC (Bld) 1.0 % Normal [facility] Comment on above: Performed By: #### C BCA, CMP, 12231-3 #### [facility] ([id number]) [address], [address] [place] [address] Eosinophils (Bld) [#/Vol] 0.2 10*3/uL Normal 0.0-0.4 [facility] Comment on above: Performed By: #### Thais BCA, CMP, 33221-5 #### [facility] ([id number]) [address], [address] [place] [address] Eosinophils/100 WBC (Bld) 4.1 % Normal [facility] Comment on above: Performed By: #### Thais SHARMA, CMP, 25213-2 #### [facility] ([id number]) [address], [address] [place] [address] Erythrocyte distribution width (RBC) [Ratio] 16.0 % High 11.5-15.0 [facility] Comment on above: Performed By: #### Thais SHARMA, CMP, 86494-3 #### [facility] ([id number]) [address] [address] [place] [address] Hematocrit (Bld) [Volume fraction] 27.8 % Low 39-49 [facility] Comment on above: Performed By: #### Thais BCA, CMP, 72301-7 #### [facility] ([id number]) [address] [address] [place] [address] Hemoglobin (Bld) [Mass/Vol] 9.7 g/dL Low 13.0-17.0 [facility] Comment on above: Performed By: #### Thais BCA, CMP, 24066-9 #### [facility] ([id number]) [address], [address] [place] [address] Lymphocytes (Bld) [#/Vol] 1.0 10*3/uL Normal 1.0-3.5 [facility] Comment on above: Performed By: #### Thais SHARMA CMP, 42908-0 #### [facility] ([id number]) [address], [facility] [address] [place] [address] Lymphocytes/100 WBC (Bld) 24.3 % Normal [facility] Comment on above: Performed By: #### Thais SHARMA CMP, 74324-3 #### [facility] ([id number]) [address], [facility] [address] [place] [address] MCH (RBC) [Entitic mass] 31.1 pg Normal 27-34 [facility] Comment on above: Performed By: #### Thais SHARMA CMP, 47377-8 #### [facility] ([id number]) [address], [address] [place] [address] MCHC (RBC) [Mass/Vol] 35.0 g/dL Normal 32-36 [facility] Comment on above: Performed By: #### Thais SHARMA CMP, 33682-7 #### [facility] ([id number]) [address], [address] [place] [address] MCV (RBC) [Entitic vol] 89 fL Normal 80-100 P [facility] Comment on above: Performed By: #### Thais SHARMA CMP, 66373-0 #### [facility] ([id number]) [address], [address] [place] [address] Monocytes (Bld) [#/Vol] 0.3 10*3/uL Normal 0-0.9 [facility] Comment on above: Performed By: #### Thais SHARMA, CMP, 92641-3 #### [facility] ([id number]) [address], [address] [place] [address] Monocytes/100 WBC (Bld) 8.3 % Normal P [facility] Comment on above: Performed By: #### C BCA, CMP, 66095-3 #### [facility] ([id number]) [address], [address] [place] [address] Neutrophils/100 WBC (Bld) 62.3 % Normal [facility] Comment on above: Performed By: #### C BCA, CMP, 91384-6 #### [facility] ([id number]) [address], [facility] [address] [place] [address] Platelet mean volume (Bld) [Entitic vol] 6.9 fL Low 7-12 [facility] Comment on above: Performed By: #### C BCA, CMP, 78066-0 #### [facility] ([id number]) [address], [facility] [address] [place] [address] Platelets (Bld) [#/Vol] 267 10*3/uL Normal 150-450 [facility] Comment on above: Performed By: #### C BCA, CMP, 82109-8 #### [facility] ([id number]) [address] [place] [address] RBC COUNT 3.13 X10E12/L Low 4.10-5.70 [facility] Comment on above: Performed By: #### C BCA, CMP, 83433-1 #### [facility] ([id number]) [address], [facility] [address] [place] [address] WBC (Bld) [#/Vol] 4.0 10*3/uL Normal 4.0-11.0 [facility] Comment on above: Performed By: #### C BCA, CMP, 84969-2 #### [facility] ([id number]) [address], [address] [place] [address] COMPREHENSIVE METABOLIC PANE [place] 04-17-2024 Albumin [Mass/Vol] 3.7 g/dL Normal 3.2-5.3 [facility] Comment on above: Performed By: #### C BCA, CMP, 81434-8 #### [facility] ([id number]) [address], [address] [place] [address] ALP [Catalytic activity/Vol] 83 U/L Normal 39-130 [facility] Comment on above: Performed By: #### C BCA, CMP, 05026-5 #### [facility] ([id number]) [address], [address] [place] [address] ALT [Catalytic activity/Vol] 29 U/L Normal 0-40 [facility] Comment on above: Performed By: #### C BCA, CMP, 42318-5 #### [facility] ([id number]) [address] [place] [address] Anion gap [Moles/Vol] 8 mmol/L Normal 5-15 [facility] Comment on above: Performed By: #### C BCA, CMP, 40485-3 #### [facility] ([id number]) [address] [place] [address] AST [Catalytic activity/Vol] 23 U/L Normal 0-41 [facility] Comment on above: Performed By: #### C BCA, CMP, 83019-0 #### [facility] ([id number]) [address] [place] [address] Bilirubin [Mass/Vol] 0.8 mg/dL Normal 0.3-1.2 [facility] Comment on above: Performed By: #### C BCA, CMP, 83868-1 #### [facility] ([id number]) [address] [place] [address] Calcium [Mass/Vol] 8.5 mg/dL Normal 8.5-10.5 [facility] Comment on above: Performed By: #### C BCA, CMP, 96425-3 #### [facility] ([id number]) [address], [address] [place] [address] Chloride [Moles/Vol] 102 mmol/L Normal 98-109 [facility] Comment on above: Performed By: #### C BCA CMP, 69193-0 #### [facility] ([id number]) [address], [address] [place] [address] CO2 [Moles/Vol] 27 mmol/L Normal 22-32 [facility] Comment on above: Performed By: #### C BCA, CMP, 69719-2 #### [facility] ([id number]) [address], [facility] [address] [place] [address] Creatinine [Mass/Vol] 0.61 mg/dL Normal 0.60-1.30 [facility] Comment on above: Result Comment: METH OD TRACEABLE TO IDMS STANDARD Performed By: #### C ZACHARY, CMP, 94371-7 #### [facility] ([id number]) [address] [place] [address] eGFR (CKD-EPI) NON-RACE DEPENDENT >90 Normal >59 [facility] Comment on above: Result Comment: Reported eGFR is based on the CKD-EPI 2020 equation that does not use a race coefficient. Performed By: #### C BCA, CMP, 48104-4 #### [facility] ([id number]) [address] [address] [place] [address] Glucose [Mass/Vol] 123 mg/dL High 65-99 [facility] Comment on above: Performed By: #### C BCA, CMP, 51220-6 #### [facility] ([id number]) [address] [address] [place] [address] Potassium [Moles/Vol] 4.1 mmol/L Normal 3.5-5.0 [facility] Comment on above: Performed By: #### C BCA, CMP, 27194-9 #### [facility] ([id number]) [address] [place] [address] Protein [Mass/Vol] 5.7 g/dL Low 6.0-8.0 [facility] Comment on above: Performed By: #### Thais BCA, CMP, 87593-8 #### [facility] ([id number]) [address], [address] [place] [address] Sodium [Moles/Vol] 137 mmol/L Normal 134-146 [facility] Comment on above: Performed By: #### Thais BCA, CMP, 27446-0 #### [facility] ([id number]) [address], [address] [place] [address] Urea nitrogen [Mass/Vol] 16 mg/dL Normal 5-27 [facility] Comment on above: Performed By: #### Thais SHARMA, CMP, 18177-2 #### [facility] ([id number]) [address], [address] [place] [address] Glucose Glucometer (BldC) [M ass/Vol]on 04-17-2024 Glucose [Mass/Vol] 97 mg/dL Normal 65-99 [facility] HGB AND HCTon 04-17-2024 Hematocrit (Bld) [Volume fraction] 28.5 % Low 39-49 [facility] Comment on above: Performed By: #### Thais BCA, CMP, 67152-2 #### [facility] ([id number]) [address], [address] [place] [address] Hemoglobin (Bld) [Mass/Vol] 9.8 g/dL Low 13.0-17.0 [facility] Comment on above: Performed By: #### Thais BCA, CMP, 92104-2 #### [facility] ([id number]) [address], [address] [place] [address] Hematocrit (Bld) [Volume fraction] 29.3 % Low 39-49 [facility] Comment on above: Performed By: #### C ZACHARY, CMP, 58493-3 #### [facility] ([id number]) [address], [address] [place] [address] Hemoglobin (Bld) [Mass/Vol] 10.0 g/dL Low 13.0-17.0 [facility] Comment on above: Performed By: #### C ZACHARY, CMP, 09168-6 #### [facility] ([id number]) [address], [address] [place] [place] [address] CBC AND AUTO DIFFon 04-16-20 24 Eosinophils (Bld) [#/Vol] 0.1 10*3/uL Normal 0.0-0.4 [facility] Comment on above: Performed By: #### C ZACHARY, CMP ####[facility] ([id number])[address] [address] Eosinophils/100 WBC (Bld) 3.1 % Normal [facility] Comment on above: Performed By: #### C ZACHARY, CMP ####[facility] ([id number])[address] [address] Erythrocyte distribution width (RBC) [Ratio] 16.6 % High 11.5-15.0 [facility] Comment on above: Performed By: #### C BCA, CMP ####[facility] ([id number])[address] [address] Hematocrit (Bld) [Volume fraction] 28.1 % Low 39-49 [facility] Comment on above: Performed By: #### C BCA, CMP ####[facility] ([id number])[address] [address] Hemoglobin (Bld) [Mass/Vol] 9.8 g/dL Low 13.0-17.0 [facility] Comment on above: Performed By: #### C BCA, CMP ####[facility] ([id number])[address], [address] [place] [address] Lymphocytes (Bld) [#/Vol] 1.2 10*3/uL Normal 1.0-3.5 [facility] Comment on above: Performed By: #### C BCA, CMP ####[facility] ([id number])[address], [address] [address] Lymphocytes/100 WBC (Bld) 27.6 % Normal [facility] Comment on above: Performed By: #### C BCA, CMP ####[facility] ([id number])[address], [address] [address] MCH (RBC) [Entitic mass] 31.6 pg Normal 27-34 [facility] Comment on above: Performed By: #### C BCA, CMP ####[facility] ([id number])[address], [address] [address] MCHC (RBC) [Mass/Vol] 34.9 g/dL Normal 32-36 [facility] Comment on above: Performed By: #### C BCA, CMP ####[facility] ([id number])[address], [address] [address] MCV (RBC) [Entitic vol] 91 fL Normal 80-100 [facility] Comment on above: Performed By: #### C BCA, CMP ####[facility] ([id number])[address] [address] [address] Monocytes (Bld) [#/Vol] 0.2 10*3/uL Normal 0-0.9 [facility] Comment on above: Performed By: #### C BCA, CMP ####[facility] ([id number])[address], [address] [address] Monocytes/100 WBC (Bld) 5.1 % Normal [facility] Comment on above: Performed By: #### C ZACHARY, CMP ####[facility] ([id number])[address], [address], [place] [address] Neutrophils (Bld) [#/Vol] 2.7 10*3/uL Normal 1.5-6.6 [facility] Comment on above: Performed By: #### C ZACHARY, CMP ####[facility] ([id number])[address], [place] [address] OVALOCYTE 1+ Abnormal NONE [facility] Comment on above: Performed By: #### C ZACHARY, CMP ####[facility] ([id number])[address], [address] [address] Platelet mean volume (Bld) [Entitic vol] 7.1 fL Normal 7-12 [facility] Comment on above: Performed By: #### C ZACHARY, CMP ####[facility] ([id number])[address], [address] [address] Platelets (Bld) [#/Vol] 257 10*3/uL Normal 150-450 [facility] Comment on above: Performed By: #### C ZACHARY, CMP ####[facility] ([id number])[address], [address], [place] [address] POLYCHROMASIA 1+ Abnormal NONE [facility] Comment on above: Performed By: #### C ZACHARY, CMP ####[facility] ([id number])[address], [address], [place] [address] RBC COUNT 3.10 X10E12/L Low 4.10-5.70 [facility] Comment on above: Performed By: #### C ZACHARY, CMP ####[facility] ([id number])[address], [address], [place] [address] SEG NEUTROPHIL 64.2 % Normal [facility] Comment on above: Performed By: #### C BCA, CMP ####[facility] ([id number])[address], [address], [place] [address] WBC (Bld) [#/Vol] 4.2 10*3/uL Normal 4.0-11.0 [facility] Comment on above: Performed By: #### C BCA, CMP ####[facility] ([id number])[address], [place] [address] COMPREHENSIVE METABOLIC PANE [facility] [place] 04-16-2024 Albumin [Mass/Vol] 3.8 g/dL Normal 3.2-5.3 [facility] Comment on above: Performed By: #### C BCA, CMP ####[facility] ([id number])[address], [place] [address] ALP [Catalytic activity/Vol] 71 U/L Normal 39-130 [facility] Comment on above: Performed By: #### C BCA, CMP ####[facility] ([id number])[address], [address], [place] [address] ALT [Catalytic activity/Vol] 19 U/L Normal 0-40 [facility] Comment on above: Performed By: #### C BCA, CMP ####[facility] ([id number])[address], [address], [place] [address] Anion gap [Moles/Vol] 12 mmol/L Normal 5-15 [facility] Comment on above: Performed By: #### C BCA, CMP ####[facility] ([id number])[address], [address], [place] [address] AST [Catalytic activity/Vol] 16 U/L Normal 0-41 [facility] Comment on above: Performed By: #### C BCA, CMP ####[facility] ([id number])[address], [address], [place] [address] Bilirubin [Mass/Vol] 0.7 mg/dL Normal 0.3-1.2 [facility] Comment on above: Performed By: #### C ZACHARY, CMP ####[facility] ([id number])[address], [address], [place] [address] Calcium [Mass/Vol] 8.4 mg/dL Low 8.5-10.5 [facility] Comment on above: Performed By: #### C ZACHARY, CMP ####[facility] ([id number])[address] [address], [place] [address] Chloride [Moles/Vol] 102 mmol/L Normal 98-109 [facility] Comment on above: Performed By: #### C BCA, CMP ####[facility] ([id number])[address] [address] [place] [address] CO2 [Moles/Vol] 24 mmol/L Normal 22-32 [facility] Comment on above: Performed By: #### C ZACHARY, CMP ####[facility] ([id number])[address] [address], [place] [address] Creatinine [Mass/Vol] 0.60 mg/dL Normal 0.60-1.30 [facility] Comment on above: Result Comment: METH OD TRACEABLE TO IDMS STANDARD Performed By: #### C ZACHARY, CMP ####[facility] ([id number])[address] [address], [place] [address] eGFR (CKD-EPI) NON-RACE DEPENDENT >90 Normal >59 [facility] Comment on above: Result Comment: Reported eGFR is based on the CKD-EPI 2020 equation that does not use a race coefficient. Performed By: #### C BCA, CMP ####[facility] ([id number])[address] [address], [place] [address] Glucose [Mass/Vol] 147 mg/dL High 65-99 [facility] Comment on above: Performed By: #### C BCA, CMP ####[facility] ([id number])[address], [address] [address] Potassium [Moles/Vol] 3.8 mmol/L Normal 3.5-5.0 [facility] Comment on above: Performed By: #### C BCA, CMP ####[facility] ([id number])[address], [address], [place] [address] Protein [Mass/Vol] 5.6 g/dL Low 6.0-8.0 [facility] Comment on above: Performed By: #### C BCA, CMP ####[facility] ([id number])[address], [address] [address] Sodium [Moles/Vol] 138 mmol/L Normal 134-146 [facility] Comment on above: Performed By: #### C BCA, CMP ####[facility] ([id number])[address], [address] [address] Urea nitrogen [Mass/Vol] 13 mg/dL Normal 5-27 [facility] Comment on above: Performed By: #### C BCA, CMP ####[facility] ([id number])[address] [address] Glucose Glucometer (BldC) [M ass/Vol]on 04-16-2024 Glucose [Mass/Vol] 137 mg/dL High 65-99 [facility] Glucose [Mass/Vol] 145 mg/dL High 65-99 [facility] Glucose [Mass/Vol] 144 mg/dL High 65-99 [facility] Glucose [Mass/Vol] 151 mg/dL High 65-99 [facility] Glucose [Mass/Vol] 148 mg/dL High 65-99 [facility] HGB AND HCTon 04-16-2024 Hematocrit (Bld) [Volume fraction] 26.4 % Low 39-49 [facility] Comment on above: Performed By: #### C BCA, CMP, 55171-9 #### [facility] ([id number]) [address], [address] [place] [address] Hemoglobin (Bld) [Mass/Vol] 9.4 g/dL Low 13.0-17.0 [facility] Comment on above: Performed By: #### C BCA, CMP, 88095-7 #### [facility] ([id number]) [address], [address] [place] [address] Hematocrit (Bld) [Volume fraction] 30.2 % Low 39-49 [facility] Comment on above: Performed By: #### H H ####[facility] ([id number])[address], [place] [address] Hemoglobin (Bld) [Mass/Vol] 10.5 g/dL Low 13.0-17.0 [facility] Comment on above: Performed By: #### H H ####[facility] ([id number])[address], [place] [address] Hematocrit (Bld) [Volume fraction] 27.8 % Low 39-49 [facility] Comment on above: Performed By: #### H H ####[facility] ([id number])[address], [place] [address] Hemoglobin (Bld) [Mass/Vol] 9.6 g/dL Low 13.0-17.0 [facility] Comment on above: Performed By: #### H H ####[facility] ([id number])[address], [address], [place] [address] CBC AND AUTO DIFFon 04-15-20 24 Eosinophils (Bld) [#/Vol] 0.3 10*3/uL Normal 0.0-0.4 [facility] Comment on above: Performed By: #### C BCA, CMP ####[facility] ([id number])[address] [place] [address] Eosinophils/100 WBC (Bld) 5.0 % Normal [facility] Comment on above: Performed By: #### C BCA, CMP ####[facility] ([id number])[address], [address], [place] [address] Erythrocyte distribution width (RBC) [Ratio] 16.0 % High 11.5-15.0 [facility] Comment on above: Performed By: #### C ZACHARY, CMP ####[facility] ([id number])[address], [address] [address] Hematocrit (Bld) [Volume fraction] 25.9 % Low 39-49 [facility] Comment on above: Performed By: #### C ZACHARY, CMP ####[facility] ([id number])[address] [address], [place] [address] Hemoglobin (Bld) [Mass/Vol] 9.0 g/dL Low 13.0-17.0 [facility] Comment on above: Performed By: #### C ZACHARY, CMP ####[facility] ([id number])[address] [address], [place] [address] Lymphocytes (Bld) [#/Vol] 1.6 10*3/uL Normal 1.0-3.5 [facility] Comment on above: Performed By: #### C BCA, CMP ####[facility] ([id number])[address] [address] [address] Lymphocytes/100 WBC (Bld) 32.0 % Normal [facility] Comment on above: Performed By: #### C BCA, CMP ####[facility] ([id number])[address], [address], [place] [address] MCH (RBC) [Entitic mass] 31.2 pg Normal 27-34 [facility] Comment on above: Performed By: #### C BCA, CMP ####[facility] ([id number])[address], [place] [address] MCHC (RBC) [Mass/Vol] 34.7 g/dL Normal 32-36 [facility] Comment on above: Performed By: #### C BCA, CMP ####[facility] ([id number])[address], [address] [address] MCV (RBC) [Entitic vol] 90 fL Normal 80-100 P [facility] Comment on above: Performed By: #### C ZACHARY, CMP ####[facility] ([id number])[address] [address], [place] [address] Monocytes (Bld) [#/Vol] 0.4 10*3/uL Normal 0-0.9 [facility] Comment on above: Performed By: #### C BCA, CMP ####[facility] ([id number])[address] [address], [place] [address] Monocytes/100 WBC (Bld) 9.0 % Normal [facility] Comment on above: Performed By: #### C BCA, CMP ####[facility] ([id number])[address] [address] [address] Neutrophils (Bld) [#/Vol] 2.7 10*3/uL Normal 1.5-6.6 [facility] Comment on above: Performed By: #### C BCA, CMP ####[facility] ([id number])[address] [address], [place] [address] Platelet mean volume (Bld) [Entitic vol] 7.0 fL Normal 7-12 [facility] Comment on above: Performed By: #### C BCA, CMP ####[facility] ([id number])[address], [address] [address] Platelets (Bld) [#/Vol] 225 10*3/uL Normal 150-450 [facility] Comment on above: Performed By: #### C BCA, CMP ####[facility] ([id number])[address], [place] [address] POLYCHROMASIA 1+ Abnormal NONE [facility] Comment on above: Performed By: #### C BCA, CMP ####[facility] ([id number])[address], [address], [place] [address] RBC COUNT 2.88 X10E12/L Low 4.10-5.70 [facility] Comment on above: Performed By: #### C BCA, CMP ####[facility] ([id number])[address] [address], [place] [address] SEG NEUTROPHIL 54.0 % Normal [facility] Comment on above: Performed By: #### C BCA, CMP ####[facility] ([id number])[address] [address] [place] [address] WBC (Bld) [#/Vol] 5.0 10*3/uL Normal 4.0-11.0 [facility] Comment on above: Performed By: #### C BCA, CMP ####[facility] ([id number])[address] [address] COMPREHENSIVE METABOLIC PANE [place] 04-15-2024 Albumin [Mass/Vol] 3.5 g/dL Normal 3.2-5.3 [facility] Comment on above: Performed By: #### C BCA, CMP ####[facility] ([id number])[address] [address] [place] [address] ALP [Catalytic activity/Vol] 64 U/L Normal 39-130 [facility] Comment on above: Performed By: #### C BCA, CMP ####[facility] ([id number])[address], [place] [address] ALT [Catalytic activity/Vol] 18 U/L Normal 0-40 [facility] Comment on above: Performed By: #### C BCA, CMP ####[facility] ([id number])[address], [place] [address] Anion gap [Moles/Vol] 8 mmol/L Normal 5-15 [facility] Comment on above: Performed By: #### C BCA, CMP ####[facility] ([id number])[address], [place] [address] AST [Catalytic activity/Vol] 18 U/L Normal 0-41 [facility] Comment on above: Performed By: #### C BCA, CMP ####[facility] ([id number])[address], [place] [address] Bilirubin [Mass/Vol] 0.7 mg/dL Normal 0.3-1.2 [facility] Comment on above: Performed By: #### C BCA, CMP ####[facility] ([id number])[address], [place] [address] Calcium [Mass/Vol] 8.3 mg/dL Low 8.5-10.5 [facility] Comment on above: Performed By: #### C BCA, CMP ####[facility] ([id number])[address], [place] [address] Chloride [Moles/Vol] 100 mmol/L Normal 98-109 [facility] Comment on above: Performed By: #### C BCA, CMP ####[facility] ([id number])[address], [address], [place] [address] CO2 [Moles/Vol] 28 mmol/L Normal 22-32 [facility] Comment on above: Performed By: #### C BCA, CMP ####[facility] ([id number])[address] [address] [address] Creatinine [Mass/Vol] 0.56 mg/dL Low 0.60-1.30 [facility] Comment on above: Result Comment: METH OD TRACEABLE TO IDMS STANDARD Performed By: #### C BCA, CMP ####[facility] ([id number])[address] [address] [address] eGFR (CKD-EPI) NON-RACE DEPENDENT >90 Normal >59 [facility] Comment on above: Result Comment: Reported eGFR is based on the CKD-EPI 2020 equation that does not use a race coefficient. Performed By: #### C BCA, CMP ####[facility] ([id number])[address] [address], [place] [address] Glucose [Mass/Vol] 152 mg/dL High 65-99 [facility] Comment on above: Performed By: #### C BCA, CMP ####[facility] ([id number])[address] [address], [place] [address] Potassium [Moles/Vol] 4.2 mmol/L Normal 3.5-5.0 [facility] Comment on above: Performed By: #### C BCA, CMP ####[facility] ([id number])[address] [address] [address] Protein [Mass/Vol] 5.4 g/dL Low 6.0-8.0 [facility] Comment on above: Performed By: #### C BCA, CMP ####[facility] ([id number])[address] [address] Sodium [Moles/Vol] 136 mmol/L Normal 134-146 [facility] Comment on above: Performed By: #### C BCA, CMP ####[facility] ([id number])[address] [place] [address] Urea nitrogen [Mass/Vol] 14 mg/dL Normal 5-27 [facility] Comment on above: Performed By: #### C BCA, CMP ####[facility] ([id number])[address], [address] [place] [address] Glucose Glucometer (BldC) [M ass/Vol]on 04-15-2024 Glucose [Mass/Vol] 159 mg/dL High 65-99 [facility] Glucose [Mass/Vol] 146 mg/dL High 65-99 [facility] Glucose [Mass/Vol] 145 mg/dL High 65-99 [facility] Glucose [Mass/Vol] 153 mg/dL High 65-99 [facility] Glucose [Mass/Vol] 164 mg/dL High 65-99 [facility] HGB AND HCTon 04-15-2024 Hematocrit (Bld) [Volume fraction] 27.1 % Low 39-49 [facility] Comment on above: Performed By: #### H H ####[facility] ([id number])[address] [address] [place] [address] Hemoglobin (Bld) [Mass/Vol] 9.3 g/dL Low 13.0-17.0 [facility] Comment on above: Performed By: #### H H ####[facility] ([id number])[address] [address] [place] [address] Hematocrit (Bld) [Volume fraction] 26.9 % Low 39-49 [facility] Comment on above: Performed By: #### H H ####[facility] ([id number])[address] [address] [place] [address] Hemoglobin (Bld) [Mass/Vol] 9.5 g/dL Low 13.0-17.0 [facility] Comment on above: Performed By: #### H H ####[facility] ([id number])[address] [address] Hematocrit (Bld) [Volume fraction] 27.2 % Low 39-49 [facility] Comment on above: Performed By: #### H H ####[facility] ([id number])[address], [place] [address] Hemoglobin (Bld) [Mass/Vol] 9.4 g/dL Low 13.0-17.0 [facility] Comment on above: Performed By: #### H H ####[facility] ([id number])[address] [address] CBC AND AUTO DIFFon 04-14-20 24 Band form neutrophils/100 WBC (Bld) 1.0 % Normal [facility] Comment on above: Performed By: #### U A #### [facility] ([id number]) [address], [address] [place] [address] Eosinophils (Bld) [#/Vol] 0.5 10*3/uL High 0.0-0.4 [facility] Comment on above: Performed By: #### U A #### [facility] ([id number]) [address], [address] [place] [address] Eosinophils/100 WBC (Bld) 7.0 % Normal [facility] Comment on above: Performed By: #### U A #### [facility] ([id number]) [address], [address] [place] [address] Erythrocyte distribution width (RBC) [Ratio] 15.8 % High 11.5-15.0 [facility] Comment on above: Performed By: #### U A #### [facility] ([id number]) [address], [address] [place] [address] Hematocrit (Bld) [Volume fraction] 25.8 % Low 39-49 [facility] Comment on above: Performed By: #### U A #### [facility] ([id number]) [address], [address] [place] [address] Hemoglobin (Bld) [Mass/Vol] 9.0 g/dL Low 13.0-17.0 [facility] Comment on above: Performed By: #### U A #### [facility] ([id number]) [address], [address] [place] [address] IMMATURE MONONUCLEAR 1.0 % Normal [facility] Comment on above: Performed By: #### U A #### [facility] ([id number]) [address], [address] [place] [address] Lymphocytes (Bld) [#/Vol] 1.7 10*3/uL Normal 1.0-3.5 [facility] Comment on above: Performed By: #### U A #### [facility] ([id number]) [address] [place] [address] Lymphocytes/100 WBC (Bld) 23.0 % Normal [facility] Comment on above: Performed By: #### U A #### [facility] ([id number]) [address] [place] [address] MCH (RBC) [Entitic mass] 31.0 pg Normal 27-34 [facility] Comment on above: Performed By: #### U A #### [facility] ([id number]) [address], [address] [place] [address] MCHC (RBC) [Mass/Vol] 34.9 g/dL Normal 32-36 [facility] Comment on above: Performed By: #### U A #### [facility] ([id number]) [address], [address] [place] [address] MCV (RBC) [Entitic vol] 89 fL Normal 80-100 P [facility] Comment on above: Performed By: #### U A #### [facility] ([id number]) [address], [address] [place] [address] Metamyelocytes/100 WBC (Bld) 1.0 % Normal [facility] Comment on above: Performed By: #### U A #### [facility] ([id number]) [address], [address] [place] [address] Monocytes (Bld) [#/Vol] 0.5 10*3/uL Normal 0-0.9 [facility] Comment on above: Performed By: #### U A #### [facility] ([id number]) [address], [address] [place] [address] Monocytes/100 WBC (Bld) 7.0 % Normal [facility] Comment on above: Performed By: #### U A #### [facility] ([id number]) [address], [address] [place] [address] MYELOCYTE 1.0 % Normal [facility] Comment on above: Performed By: #### U A #### [facility] ([id number]) [address], [address] [place] [address] Neutrophils (Bld) [#/Vol] 4.4 10*3/uL Normal 1.5-6.6 [facility] Comment on above: Performed By: #### U A #### [facility] ([id number]) [address], [address] [place] [address] NUCLEATED RBC 1.0 /100 WBC Normal 0.0-1.0 [facility] Comment on above: Performed By: #### U A #### [facility] ([id number]) [address], [address] [place] [address] Platelet mean volume (Bld) [Entitic vol] 7.2 fL Normal 7-12 [facility] Comment on above: Performed By: #### U A #### [facility] ([id number]) [address], [address] [place] [address] Platelets (Bld) [#/Vol] 241 10*3/uL Normal 150-450 [facility] Comment on above: Performed By: #### U A #### [facility] ([id number]) [address], [address] [place], [place] [address] POLYCHROMASIA 1+ Abnormal NONE [facility] Comment on above: Performed By: #### U A #### [facility] ([id number]) [address], [address] [place] [address] RBC COUNT 2.90 X10E12/L Low 4.10-5.70 [facility] Comment on above: Performed By: #### U A #### [facility] ([id number]) [address], [address] [place] [address] SEG NEUTROPHIL 59.0 % Normal [facility] Comment on above: Performed By: #### U A #### [facility] ([id number]) [address], [address] [place] [address] WBC (Bld) [#/Vol] 7.4 10*3/uL Normal 4.0-11.0 [facility] Comment on above: Performed By: #### U A #### [facility] ([id number]) [address], [address] [place] [address] COMPREHENSIVE METABOLIC PANE [place] 04-14-2024 Albumin [Mass/Vol] 3.6 g/dL Normal 3.2-5.3 [facility] Comment on above: Performed By: #### U A #### [facility] ([id number]) [address], [address] [place] [address] ALP [Catalytic activity/Vol] 55 U/L Normal 39-130 [facility] Comment on above: Performed By: #### U A #### [facility] ([id number]) [address], [address] [place] [address] ALT [Catalytic activity/Vol] 10 U/L Normal 0-40 [facility] Comment on above: Performed By: #### U A #### [facility] ([id number]) [address], [address] [place] [address] Anion gap [Moles/Vol] 10 mmol/L Normal 5-15 [facility] Comment on above: Performed By: #### U A #### [facility] ([id number]) [address], [address] [place] [address] AST [Catalytic activity/Vol] 12 U/L Normal 0-41 [facility] Comment on above: Performed By: #### U A #### [facility] ([id number]) [address], [address] [place] [address] Bilirubin [Mass/Vol] 0.7 mg/dL Normal 0.3-1.2 [facility] Comment on above: Performed By: #### U A #### [facility] ([id number]) [address], [address] [place] [address] Calcium [Mass/Vol] 8.4 mg/dL Low 8.5-10.5 [facility] Comment on above: Performed By: #### U A #### [facility] ([id number]) [address], [address] [place] [address] Chloride [Moles/Vol] 100 mmol/L Normal 98-109 [facility] Comment on above: Performed By: #### U A #### [facility] ([id number]) [address] [place] [address] CO2 [Moles/Vol] 26 mmol/L Normal 22-32 [facility] Comment on above: Performed By: #### U A #### [facility] ([id number]) [address], [address] [place] [address] Creatinine [Mass/Vol] 0.61 mg/dL Normal 0.60-1.30 [facility] Comment on above: Result Comment: METH OD TRACEABLE TO IDMS STANDARD Performed By: #### U A #### [facility] ([id number]) [address], [address] [place] [address] eGFR (CKD-EPI) NON-RACE DEPENDENT >90 Normal >59 [facility] Comment on above: Result Comment: Reported eGFR is based on the CKD-EPI 2020 equation that does not use a race coefficient. Performed By: #### U A #### [facility] ([id number]) [address], [address] [place] [address] Glucose [Mass/Vol] 189 mg/dL High 65-99 [facility] Comment on above: Performed By: #### U A #### [facility] ([id number]) [address] [address] [place] [address] Potassium [Moles/Vol] 4.0 mmol/L Normal 3.5-5.0 [facility] Comment on above: Performed By: #### U A #### [facility] ([id number]) [address], [address] [place] [address] Protein [Mass/Vol] 5.6 g/dL Low 6.0-8.0 [facility] Comment on above: Performed By: #### U A #### [facility] ([id number]) [address] [address] [place] [address] Sodium [Moles/Vol] 136 mmol/L Normal 134-146 [facility] Comment on above: Performed By: #### U A #### [facility] ([id number]) [address] [address] [place] [address] Urea nitrogen [Mass/Vol] 23 mg/dL Normal 5-27 [facility] Comment on above: Performed By: #### U A #### [facility] ([id number]) [address], [address] [place] [address] Glucose Glucometer (BldC) [M ass/Vol]on 04-14-2024 Glucose [Mass/Vol] 148 mg/dL High 65-99 [facility] Glucose [Mass/Vol] 158 mg/dL High 65-99 [facility] Glucose [Mass/Vol] 180 mg/dL High 65-99 [facility] Glucose [Mass/Vol] 185 mg/dL High 65-99 [facility] HGB AND HCTon 04-14-2024 Hematocrit (Bld) [Volume fraction] 26.1 % Low 39-49 [facility] Comment on above: Performed By: #### U A #### [facility] ([id number]) [address], [address] [place] [address] Hemoglobin (Bld) [Mass/Vol] 9.2 g/dL Low 13.0-17.0 [facility] Comment on above: Performed By: #### U A #### [facility] ([id number]) [address], [address] [place] [address] Hematocrit (Bld) [Volume fraction] 26.2 % Low 39-49 [facility] Comment on above: Performed By: #### U A #### [facility] ([id number]) [address], [address] [place] [address] Hemoglobin (Bld) [Mass/Vol] 8.7 g/dL Low 13.0-17.0 [facility] Comment on above: Performed By: #### U A #### [facility] ([id number]) [address], [address] [place] [address] TTG AB IGA IGGon 04-14-2024 TTG AB IGA <1.2 Normal <4.0 (Negative) [facility] TTG AB IGG <1.2 Normal <6.0 (Negative) [facility] Comment on above: Result Comment: NOTE Test Performed by: [facility] [place] [address] [place] [address] [employer]crete Bucket [employer]: Naty Doyle Ph.D.; CLIA# [id number] CBC AND AUTO DIFFon 04-13-20 Eosinophils (Bld) [#/Vol] 0.2 10*3/uL Normal 0.0-0.4 [facility] Comment on above: Performed By: #### C ZACHARY, CMP ####[facility] ([id number])[address] [address] Eosinophils/100 WBC (Bld) 3.0 % Normal [facility] Comment on above: Performed By: #### C ZACHARY, CMP ####[facility] ([id number])[address] [address] [place] [address] Erythrocyte distribution width (RBC) [Ratio] 14.4 % Normal 11.5-15.0 [facility] Comment on above: Performed By: #### C BCA, CMP ####[facility] ([id number])[address] [address] Hematocrit (Bld) [Volume fraction] 17.2 % Low 39-49 [facility] Comment on above: Performed By: #### C BCA, CMP ####[facility] ([id number])[address] [address] Hemoglobin (Bld) [Mass/Vol] 5.8 g/dL Critically low 13.0-17.0 [facility] Comment on above: Performed By: #### C BCA, CMP ####[facility] ([id number])[address] [address] Lymphocytes (Bld) [#/Vol] 2.1 10*3/uL Normal 1.0-3.5 [facility] Comment on above: Performed By: #### C BCA, CMP ####[facility] ([id number])[address], [address] [address] Lymphocytes/100 WBC (Bld) 27.0 % Normal [facility] Comment on above: Performed By: #### C BCA, CMP ####[facility] ([id number])[address], [address] [address] MCH (RBC) [Entitic mass] 30.4 pg Normal 27-34 [facility] Comment on above: Performed By: #### C BCA, CMP ####[facility] ([id number])[address] [address] [address] MCHC (RBC) [Mass/Vol] 33.9 g/dL Normal 32-36 [facility] Comment on above: Performed By: #### C BCA, CMP ####[facility] ([id number])[address], [address] [address] MCV (RBC) [Entitic vol] 90 fL Normal 80-100 P [facility] Comment on above: Performed By: #### C BCA, CMP ####[facility] ([id number])[address] [address] [address] Metamyelocytes/100 WBC (Bld) 1.0 % Normal [facility] Comment on above: Performed By: #### C BCA, CMP ####[facility] ([id number])[address], [address] [address] Monocytes (Bld) [#/Vol] 0.4 10*3/uL Normal 0-0.9 [facility] Comment on above: Performed By: #### C BCA, CMP ####[facility] ([id number])[address], [place] [address] Monocytes/100 WBC (Bld) 5.0 % Normal P [facility] Comment on above: Performed By: #### C ZACHARY, CMP ####[facility] ([id number])[address], [place] [address] Neutrophils (Bld) [#/Vol] 4.8 10*3/uL Normal 1.5-6.6 [facility] Comment on above: Performed By: #### C ZACHARY, CMP ####[facility] ([id number])[address], [address], [place] [address] NUCLEATED RBC 1.0 /100 WBC Normal 0.0-1.0 [facility] Comment on above: Performed By: #### C ZACHARY, CMP ####[facility] ([id number])[address] [address], [place] [address] Platelet mean volume (Bld) [Entitic vol] 7.3 fL Normal 7-12 [facility] Comment on above: Performed By: #### C ZACHARY, CMP ####[facility] ([id number])[address] [address], [place] [address] Platelets (Bld) [#/Vol] 259 10*3/uL Normal 150-450 [facility] Comment on above: Performed By: #### C ZACHARY, CMP ####[facility] ([id number])[address] [address], [place] [address] POLYCHROMASIA 2+ Abnormal NONE [facility] Comment on above: Performed By: #### C ZACHARY, CMP ####[facility] ([id number])[address] [address], [place] [address] RBC COUNT 1.92 X10E12/L Low 4.10-5.70 [facility] Comment on above: Performed By: #### C BCA, CMP ####[facility] ([id number])[address], [address], [place] [address] SEG NEUTROPHIL 64.0 % Normal [facility] Comment on above: Performed By: #### C BCA, CMP ####[facility] ([id number])[address], [address] [address] WBC (Bld) [#/Vol] 7.6 10*3/uL Normal 4.0-11.0 [facility] Comment on above: Performed By: #### C BCA, CMP ####[facility] ([id number])[address], [place] [address] COMPREHENSIVE METABOLIC PANE [place] 04-13-2024 Albumin [Mass/Vol] 3.3 g/dL Normal 3.2-5.3 [facility] Comment on above: Performed By: #### C BCA, CMP ####[facility] ([id number])[address], [address], [place] [address] ALP [Catalytic activity/Vol] 48 U/L Normal 39-130 [facility] Comment on above: Performed By: #### C BCA, CMP ####[facility] ([id number])[address], [address], [place] [address] ALT [Catalytic activity/Vol] 8 U/L Normal 0-40 [facility] Comment on above: Performed By: #### C BCA, CMP ####[facility] ([id number])[address] [address] [address] Anion gap [Moles/Vol] 8 mmol/L Normal 5-15 [facility] Comment on above: Performed By: #### C BCA, CMP ####[facility] ([id number])[address], [place] [address] AST [Catalytic activity/Vol] 7 U/L Normal 0-41 [facility] Comment on above: Performed By: #### C BCA, CMP ####[facility] ([id number])[address] [address], [place] [address] Bilirubin [Mass/Vol] 0.5 mg/dL Normal 0.3-1.2 [facility] Comment on above: Performed By: #### C BCA, CMP ####[facility] ([id number])[address] [address], [place] [address] Calcium [Mass/Vol] 8.4 mg/dL Low 8.5-10.5 [facility] Comment on above: Performed By: #### C BCA, CMP ####[facility] ([id number])[address] [address] Chloride [Moles/Vol] 102 mmol/L Normal 98-109 [facility] Comment on above: Performed By: #### C BCA, CMP ####[facility] ([id number])[address] [address] CO2 [Moles/Vol] 27 mmol/L Normal 22-32 [facility] Comment on above: Performed By: #### C BCA, CMP ####[facility] ([id number])[address] [address] Creatinine [Mass/Vol] 0.64 mg/dL Normal 0.60-1.30 [facility] Comment on above: Result Comment: METH OD TRACEABLE TO IDMS STANDARD Performed By: #### C BCA, CMP ####[facility] ([id number])[address] [address] eGFR (CKD-EPI) NON-RACE DEPENDENT >90 Normal >59 [facility] Comment on above: Result Comment: Reported eGFR is based on the CKD-EPI 2020 equation that does not use a race coefficient. Performed By: #### C BCA, CMP ####[facility] ([id number])[address] [address] Glucose [Mass/Vol] 218 mg/dL High 65-99 [facility] Comment on above: Performed By: #### C BCA, CMP ####[facility] ([id number])[address], [address] [place] [address] Potassium [Moles/Vol] 3.7 mmol/L Normal 3.5-5.0 [facility] Comment on above: Performed By: #### C BCA, CMP ####[facility] ([id number])[address] [address] [place] [address] Protein [Mass/Vol] 4.9 g/dL Low 6.0-8.0 [facility] Comment on above: Performed By: #### C BCA, CMP ####[facility] ([id number])[address] [address] [place] [address] Sodium [Moles/Vol] 137 mmol/L Normal 134-146 [facility] Comment on above: Performed By: #### C BCA, CMP ####[facility] ([id number])[address] [address] [place] [address] Urea nitrogen [Mass/Vol] 35 mg/dL High 5-27 [facility] Comment on above: Performed By: #### C BCA, CMP ####[facility] ([id number])[address] [address] [address] CTA ABD AND PELVISon 03-27 CT [...] Ruth MD on 04/13/2024 5:08 PM Normal [facility] Glucose Glucometer (BldC) [M ass/Vol]on 04-13-2024 Glucose [Mass/Vol] 195 mg/dL High 65-99 [facility] Glucose [Mass/Vol] 215 mg/dL High 65-99 [facility] Glucose [Mass/Vol] 214 mg/dL High 65-99 [facility] Glucose [Mass/Vol] 208 mg/dL High 65-99 [facility] HGB AND HCTon 04-13-2024 Hematocrit (Bld) [Volume fraction] 24.2 % Low 39-49 [facility] Comment on above: Performed By: #### U A #### [facility] ([id number]) [address] [place] [address] Hemoglobin (Bld) [Mass/Vol] 8.5 g/dL Low 13.0-17.0 [facility] Comment on above: Performed By: #### U A #### [facility] ([id number]) [address] [place] [address] Hematocrit (Bld) [Volume fraction] 22.5 % Low 39-49 [facility] Comment on above: Performed By: #### H H ####[facility] ([id number])[address], [place] [address] Hemoglobin (Bld) [Mass/Vol] 7.8 g/dL Low 13.0-17.0 [facility] Comment on above: Performed By: #### H H ####[facility] ([id number])[address], [address] [address] Hematocrit (Bld) [Volume fraction] 16.3 % Low 39-49 [facility] Comment on above: Performed By: #### H H ####[facility] ([id number])[address] [address] Hemoglobin (Bld) [Mass/Vol] 5.9 g/dL Critically low 13.0-17.0 [facility] Comment on above: Performed By: #### H H ####[facility] ([id number])[address], [place] [address] CBC AND AUTO DIFFon 04-12-20 24 ABSOLUTE BASOPHIL 0.0 X10E9/L Normal 0.0-0.2 [facility] Comment on above: Performed By: #### C BCA, CMP #### [facility] ([id number]) [address] [place] [address] ABSOLUTE NEUTROPHIL 4.8 X10E9/L Normal 1.5-6.6 [facility] Comment on above: Performed By: #### C BCA, CMP #### [facility] ([id number]) [address] [place] [address] Basophils/100 WBC (Bld) 0.6 % Normal P [facility] Comment on above: Performed By: #### C BCA, CMP #### [facility] ([id number]) [address] [address] [place] [address] Eosinophils (Bld) [#/Vol] 0.0 10*3/uL Normal 0.0-0.4 [facility] Comment on above: Performed By: #### C BCA, CMP #### [facility] ([id number]) [address] [place] [address] Eosinophils/100 WBC (Bld) 0.5 % Normal [facility] Comment on above: Performed By: #### C ZACHARY, CMP #### [facility] ([id number]) [address] [address] [place] [address] Erythrocyte distribution width (RBC) [Ratio] 14.4 % Normal 11.5-15.0 [facility] Comment on above: Performed By: #### C BCA, CMP #### [facility] ([id number]) [address] [address] [place] [address] Hematocrit (Bld) [Volume fraction] 22.5 % Low 39-49 [facility] Comment on above: Performed By: #### C BCA, CMP #### [facility] ([id number]) [address] [address] [place] [address] Hemoglobin (Bld) [Mass/Vol] 7.9 g/dL Low 13.0-17.0 [facility] Comment on above: Performed By: #### C BCA, CMP #### [facility] ([id number]) [address] [address] [place] [address] Lymphocytes (Bld) [#/Vol] 1.6 10*3/uL Normal 1.0-3.5 [facility] Comment on above: Performed By: #### C BCA, CMP #### [facility] ([id number]) [address] [place] [address] Lymphocytes/100 WBC (Bld) 22.9 % Normal [facility] Comment on above: Performed By: #### C ZACHARY, CMP #### [facility] ([id number]) [address], [facility] [address] [place] [address] MCH (RBC) [Entitic mass] 31.4 pg Normal 27-34 [facility] Comment on above: Performed By: #### C BCA, CMP #### [facility] ([id number]) [address], [facility] [address] [place] [address] MCHC (RBC) [Mass/Vol] 35.1 g/dL Normal 32-36 [facility] Comment on above: Performed By: #### C ZACHARY, CMP #### [facility] ([id number]) [address] [address] [place] [address] MCV (RBC) [Entitic vol] 90 fL Normal 80-100 P [facility] Comment on above: Performed By: #### C ZACHARY, CMP #### [facility] ([id number]) [address], [facility] [address] [place] [address] Monocytes (Bld) [#/Vol] 0.4 10*3/uL Normal 0-0.9 [facility] Comment on above: Performed By: #### C BCA, CMP #### [facility] ([id number]) [address], [address] [address] Monocytes/100 WBC (Bld) 5.7 % Normal P [facility] Comment on above: Performed By: #### C BCA, CMP #### [facility] ([id number]) [address], [facility] [address] [place] [address] Neutrophils/100 WBC (Bld) 70.3 % Normal [facility] Comment on above: Performed By: #### C BCA, CMP #### [facility] ([id number]) [address] [place] [address] Platelet mean volume (Bld) [Entitic vol] 7.4 fL Normal 7-12 [facility] Comment on above: Performed By: #### C BCA, CMP #### [facility] ([id number]) [address] [place] [address] Platelets (Bld) [#/Vol] 281 10*3/uL Normal 150-450 [facility] Comment on above: Performed By: #### C ZACHARY, CMP #### [facility] ([id number]) [address] [place] [address] RBC COUNT 2.52 X10E12/L Low 4.10-5.70 [facility] Comment on above: Performed By: #### C BCA, CMP #### [facility] ([id number]) [address] [place] [address] WBC (Bld) [#/Vol] 6.9 10*3/uL Normal 4.0-11.0 [facility] Comment on above: Performed By: #### C ZACHARY, CMP #### [facility] ([id number]) [address] [place] [address] COMPREHENSIVE METABOLIC PANE [place] 04-12-2024 Albumin [Mass/Vol] 3.9 g/dL Normal 3.2-5.3 [facility] Comment on above: Performed By: #### C BCA, CMP #### [facility] ([id number]) [address] [place] [address] ALP [Catalytic activity/Vol] 58 U/L Normal 39-130 [facility] Comment on above: Performed By: #### C BCA, CMP #### [facility] ([id number]) [address] [place] [address] ALT [Catalytic activity/Vol] 9 U/L Normal 0-40 [facility] Comment on above: Performed By: #### C BCA, CMP #### [facility] ([id number]) [address] [place] [address] Anion gap [Moles/Vol] 9 mmol/L Normal 5-15 [facility] Comment on above: Performed By: #### C BCA, CMP #### [facility] ([id number]) [address] [place] [address] AST [Catalytic activity/Vol] 9 U/L Normal 0-41 [facility] Comment on above: Performed By: #### C BCA, CMP #### [facility] ([id number]) [address] [place] [address] Bilirubin [Mass/Vol] 0.6 mg/dL Normal 0.3-1.2 [facility] Comment on above: Performed By: #### C BCA, CMP #### [facility] ([id number]) [address] [place] [address] Calcium [Mass/Vol] 8.8 mg/dL Normal 8.5-10.5 [facility] Comment on above: Performed By: #### C BCA, CMP #### [facility] ([id number]) [address], [address] [place] [address] Chloride [Moles/Vol] 104 mmol/L Normal 98-109 [facility] Comment on above: Performed By: #### C BCA, CMP #### [facility] ([id number]) [address], [address] [place] [address] CO2 [Moles/Vol] 27 mmol/L Normal 22-32 [facility] Comment on above: Performed By: #### C BCA, CMP #### [facility] ([id number]) [address], [address] [place] [address] Creatinine [Mass/Vol] 0.62 mg/dL Normal 0.60-1.30 [facility] Comment on above: Result Comment: METH OD TRACEABLE TO IDMS STANDARD Performed By: #### C BCA, CMP #### [facility] ([id number]) [address], [address] [place] [address] eGFR (CKD-EPI) NON-RACE DEPENDENT >90 Normal >59 [facility] Comment on above: Result Comment: Reported eGFR is based on the CKD-EPI 2020 equation that does not use a race coefficient. Performed By: #### C BCA, CMP #### [facility] ([id number]) [address], [address] [place] [address] Glucose [Mass/Vol] 206 mg/dL High 65-99 [facility] Comment on above: Performed By: #### C BCA, CMP #### [facility] ([id number]) [address], [address] [place] [address] Potassium [Moles/Vol] 3.7 mmol/L Normal 3.5-5.0 [facility] Comment on above: Performed By: #### C BCA, CMP #### [facility] ([id number]) [address], [address] [place] [address] Protein [Mass/Vol] 5.8 g/dL Low 6.0-8.0 [facility] Comment on above: Performed By: #### C BCA, CMP #### [facility] ([id number]) [address], [address] [place] [address] Sodium [Moles/Vol] 140 mmol/L Normal 134-146 [facility] Comment on above: Performed By: #### C BCA, CMP #### [facility] ([id number]) [address], [address] [place] [address] Urea nitrogen [Mass/Vol] 24 mg/dL Normal 5-27 [facility] Comment on above: Performed By: #### C BCA, CMP #### [facility] ([id number]) [address] [place] [address] Glucose Glucometer (BldC) [M ass/Vol]on 04-12-2024 Glucose [Mass/Vol] 231 mg/dL High 65-99 [facility] Glucose [Mass/Vol] 201 mg/dL High 65-99 [facility] Glucose [Mass/Vol] 265 mg/dL High 65-99 [facility] Glucose [Mass/Vol] 242 mg/dL High 65-99 [facility] comment Harsh (Repo rt)on 04-12-2024 PLATELET INHIB,P2Y12 324 PRU Normal [facility] Comment on above: Result Comment: Low hematocrit, low platelet count and some hereditary disorders may affect results. Normal platelet reactivity due to low P2Y12 inhibition response. The P2Y12 Test should be interpreted in conjunction with other clinical and lab data. Performed By: #### C ZACHARY, CMP #### [facility] ([id number]) [address], [address] [place] [address] MR BRAIN WO CONTon 4 MR BRAIN [...] Metz MD on 04/12/2024 11:08 PM Normal [facility] CBC AND AUTO DIFFon 04-11-20 24 ABSOLUTE BASOPHIL 0.0 X10E9/L Normal 0.0-0.2 [facility] Comment on above: Performed By: #### C BCA, CMP, 28720-1 #### [facility] ([id number]) [address], [address] [place] [address] ABSOLUTE NEUTROPHIL 5.2 X10E9/L Normal 1.5-6.6 [facility] Comment on above: Performed By: #### C BCA, CMP, 64005-4 #### [facility] ([id number]) [address], [address] [place] [address] Basophils/100 WBC (Bld) 0.6 % Normal [facility] Comment on above: Performed By: #### C BCA, CMP, 57525-5 #### [facility] ([id number]) [address], [address] [place] [address] Eosinophils (Bld) [#/Vol] 0.0 10*3/uL Normal 0.0-0.4 [facility] Comment on above: Performed By: #### C BCA, CMP, 52711-2 #### [facility] ([id number]) [address], [address] [place] [address] Eosinophils/100 WBC (Bld) 0.3 % Normal [facility] Comment on above: Performed By: #### C BCA, CMP, 83811-6 #### [facility] ([id number]) [address], [address] [place] [address] Erythrocyte distribution width (RBC) [Ratio] 14.8 % Normal 11.5-15.0 [facility] Comment on above: Performed By: #### C BCA, CMP, 65563-2 #### [facility] ([id number]) [address], [address] [place] [address] Hematocrit (Bld) [Volume fraction] 22.2 % Low 39-49 [facility] Comment on above: Performed By: #### C BCA, CMP, 62952-1 #### [facility] ([id number]) [address], [facility] [address] [place] [address] Hemoglobin (Bld) [Mass/Vol] 7.8 g/dL Low 13.0-17.0 [facility] Comment on above: Performed By: #### Thais BCA, CMP, 44004-4 #### [facility] ([id number]) [address] [address] Lymphocytes (Bld) [#/Vol] 1.2 10*3/uL Normal 1.0-3.5 [facility] Comment on above: Performed By: #### Thais BCA, CMP, 71553-9 #### [facility] ([id number]) [address], [facility] [address] [place] [address] Lymphocytes/100 WBC (Bld) 17.7 % Normal [facility] Comment on above: Performed By: #### Thais BCA, CMP, 18720-9 #### [facility] ([id number]) [address], [facility] [address] [place] [address] MCH (RBC) [Entitic mass] 31.6 pg Normal 27-34 [facility] Comment on above: Performed By: #### C BCA, CMP, 56805-1 #### [facility] ([id number]) [address], [facility] [address] [place] [address] MCHC (RBC) [Mass/Vol] 35.3 g/dL Normal 32-36 [facility] Comment on above: Performed By: #### C BCA, CMP, 95668-3 #### [facility] ([id number]) [address], [address] [place] [address] MCV (RBC) [Entitic vol] 90 fL Normal 80-100 P [facility] Comment on above: Performed By: #### C BCA, CMP, 04237-5 #### [facility] ([id number]) [address], [address] [place] [address] Monocytes (Bld) [#/Vol] 0.4 10*3/uL Normal 0-0.9 [facility] Comment on above: Performed By: #### C BCA, CMP, 27552-2 #### [facility] ([id number]) [address], [address] [place] [address] Monocytes/100 WBC (Bld) 5.2 % Normal [facility] Comment on above: Performed By: #### Thais BCA, CMP, 75028-6 #### [facility] ([id number]) [address] [place] [address] Neutrophils/100 WBC (Bld) 76.2 % Normal [facility] Comment on above: Performed By: #### Thais SHARMA, CMP, 77855-0 #### [facility] ([id number]) [address] [place] [address] Platelet mean volume (Bld) [Entitic vol] 7.6 fL Normal 7-12 [facility] Comment on above: Performed By: #### Thais BCA, CMP, 69400-5 #### [facility] ([id number]) [address], [address] [place] [address] Platelets (Bld) [#/Vol] 280 10*3/uL Normal 150-450 [facility] Comment on above: Performed By: #### Thais BCA, CMP, 15346-6 #### [facility] ([id number]) [address], [address] [place] [address] RBC COUNT 2.48 X10E12/L Low 4.10-5.70 [facility] Comment on above: Performed By: #### C BCA, CMP, 63328-2 #### [facility] ([id number]) [address], [address] [place] [address] WBC (Bld) [#/Vol] 6.8 10*3/uL Normal 4.0-11.0 [facility] Comment on above: Performed By: #### C BCA, CMP, 92090-2 #### [facility] ([id number]) [address], [address] [place] [address] COMPREHENSIVE METABOLIC PANE [place] 04-11-2024 Albumin [Mass/Vol] 3.7 g/dL Normal 3.2-5.3 [facility] Comment on above: Performed By: #### C BCA, CMP, 75621-5 #### [facility] ([id number]) [address], [address] [place] [address] ALP [Catalytic activity/Vol] 52 U/L Normal 39-130 [facility] Comment on above: Performed By: #### C BCA, CMP, 87261-3 #### [facility] ([id number]) [address], [address] [place] [address] ALT [Catalytic activity/Vol] 9 U/L Normal 0-40 [facility] Comment on above: Performed By: #### C BCA, CMP, 05663-6 #### [facility] ([id number]) [address], [address] [place] [address] Anion gap [Moles/Vol] 8 mmol/L Normal 5-15 [facility] Comment on above: Performed By: #### C BCA, CMP, 02446-7 #### [facility] ([id number]) [address], [address] [place] [address] AST [Catalytic activity/Vol] 17 U/L Normal 0-41 [facility] Comment on above: Performed By: #### C BCA, CMP, 85896-3 #### [facility] ([id number]) [address], [address] [place] [address] Bilirubin [Mass/Vol] 0.5 mg/dL Normal 0.3-1.2 [facility] Comment on above: Performed By: #### C BCA, CMP, 57441-1 #### [facility] ([id number]) [address], [address] [place] [address] Calcium [Mass/Vol] 8.5 mg/dL Normal 8.5-10.5 [facility] Comment on above: Performed By: #### C BCA, CMP, 60987-2 #### [facility] ([id number]) [address], [address] [place] [address] Chloride [Moles/Vol] 110 mmol/L High 98-109 [facility] Comment on above: Performed By: #### C BCA, CMP, 86539-3 #### [facility] ([id number]) [address], [address] [place] [address] CO2 [Moles/Vol] 25 mmol/L Normal 22-32 [facility] Comment on above: Performed By: #### C BCA, CMP, 30156-6 #### [facility] ([id number]) [address], [address] [place] [address] Creatinine [Mass/Vol] 0.72 mg/dL Normal 0.60-1.30 [facility] Comment on above: Result Comment: METH OD TRACEABLE TO IDMS STANDARD Performed By: #### C ZACHARY, CMP, 04081-5 #### [facility] ([id number]) [address], [address] [place] [address] eGFR (CKD-EPI) NON-RACE DEPENDENT >90 Normal >59 [facility] Comment on above: Result Comment: Reported eGFR is based on the CKD-EPI 2020 equation that does not use a race coefficient. Performed By: #### C ZACHARY, CMP, 59387-7 #### [facility] ([id number]) [address], [address] [place] [address] Glucose [Mass/Vol] 175 mg/dL High 65-99 [facility] Comment on above: Performed By: #### C ZACHARY, CMP, 35595-8 #### [facility] ([id number]) [address] [place] [address] Potassium [Moles/Vol] 4.2 mmol/L Normal 3.5-5.0 [facility] Comment on above: Result Comment: SPEC IMEN HEMOLYZED, RESULTS INCREASED MODERATELY HEMOLYZED Performed By: #### C ZACHARY, CMP, 01742-2 #### [facility] ([id number]) [address] [place] [address] Protein [Mass/Vol] 5.6 g/dL Low 6.0-8.0 [facility] Comment on above: Performed By: #### C ZACHARY, CMP, 81495-5 #### [facility] ([id number]) [address] [place] [address] Sodium [Moles/Vol] 143 mmol/L Normal 134-146 [facility] Comment on above: Performed By: #### Thais SHARMA, CMP, 91909-9 #### [facility] ([id number]) [address], [address] [place] [address] Urea nitrogen [Mass/Vol] 41 mg/dL High 5-27 [facility] Comment on above: Performed By: #### Thais SHARMA, CMP, 74262-4 #### [facility] ([id number]) [address] [place] [address] Glucose Glucometer (BldC) [M ass/Vol]on 04-11-2024 Glucose [Mass/Vol] 254 mg/dL High 65-99 [facility] Glucose [Mass/Vol] 282 mg/dL High 65-99 [facility] Glucose [Mass/Vol] 213 mg/dL High 65-99 [facility] Glucose [Mass/Vol] 236 mg/dL High 65-99 [facility] Glucose [Mass/Vol] 192 mg/dL High 65-99 [facility] Glucose [Mass/Vol] 187 mg/dL High 65-99 [facility] aPTT Coag (PPP) [Time]on aPTT Coag (Bld) [Time] 29 s Normal 26-37 [facility] Comment on above: Performed By: #### C ZACHARY, CMP, 80367-6 #### [facility] ([id number]) [address], [address] [place] [address] CBC AND AUTO DIFFon 04-10-20 ABSOLUTE BASOPHIL 0.0 X10E9/L Normal 0.0-0.2 [facility] Comment on above: Performed By: #### C BCA, CMP #### [facility] ([id number]) [address], [address] [place] [address] ABSOLUTE NEUTROPHIL 6.1 X10E9/L Normal 1.5-6.6 [facility] Comment on above: Performed By: #### C BCA, CMP #### [facility] ([id number]) [address], [address] [place] [address] Basophils/100 WBC (Bld) 0.3 % Normal P [facility] Comment on above: Performed By: #### C BCA, CMP #### [facility] ([id number]) [address], [address] [place] [address] Eosinophils (Bld) [#/Vol] 0.0 10*3/uL Normal 0.0-0.4 [facility] Comment on above: Performed By: #### C BCA, CMP #### [facility] ([id number]) [address], [address] [place] [address] Eosinophils/100 WBC (Bld) 0.1 % Normal [facility] Comment on above: Performed By: #### C BCA, CMP #### [facility] ([id number]) [address], [address] [place] [address] Erythrocyte distribution width (RBC) [Ratio] 14.3 % Normal 11.5-15.0 [facility] Comment on above: Performed By: #### C BCA, CMP #### [facility] ([id number]) [address], [address] [place] [address] Hematocrit (Bld) [Volume fraction] 22.7 % Low 39-49 [facility] Comment on above: Performed By: #### C BCA, CMP #### [facility] ([id number]) [address], [address] [place] [address] Hemoglobin (Bld) [Mass/Vol] 7.9 g/dL Low 13.0-17.0 [facility] Comment on above: Performed By: #### C BCA, CMP #### [facility] ([id number]) [address] [place] [address] Lymphocytes (Bld) [#/Vol] 1.1 10*3/uL Normal 1.0-3.5 [facility] Comment on above: Performed By: #### C BCA, CMP #### [facility] ([id number]) [address] [place] [address] Lymphocytes/100 WBC (Bld) 14.5 % Normal [facility] Comment on above: Performed By: #### C BCA, CMP #### [facility] ([id number]) [address], [address] [place] [address] MCH (RBC) [Entitic mass] 31.2 pg Normal 27-34 [facility] Comment on above: Performed By: #### C BCA, CMP #### [facility] ([id number]) [address], [address] [place] [address] MCHC (RBC) [Mass/Vol] 35.1 g/dL Normal 32-36 [facility] Comment on above: Performed By: #### C BCA, CMP #### [facility] ([id number]) [address], [address] [place] [address] MCV (RBC) [Entitic vol] 89 fL Normal 80-100 P [facility] Comment on above: Performed By: #### C ZACHARY, CMP #### [facility] ([id number]) [address] [place] [address] Monocytes (Bld) [#/Vol] 0.3 10*3/uL Normal 0-0.9 [facility] Comment on above: Performed By: #### C ZACHARY, CMP #### [facility] ([id number]) [address] [place] [address] Monocytes/100 WBC (Bld) 4.3 % Normal [facility] Comment on above: Performed By: #### C ZACHARY, CMP #### [facility] ([id number]) [address] [place] [address] Neutrophils/100 WBC (Bld) 80.8 % Normal [facility] Comment on above: Performed By: #### C ZACHARY, CMP #### [facility] ([id number]) [address] [place] [address] Platelet mean volume (Bld) [Entitic vol] 7.2 fL Normal 7-12 [facility] Comment on above: Performed By: #### C BCA, CMP #### [facility] ([id number]) [address], [address] [place] [address] Platelets (Bld) [#/Vol] 285 10*3/uL Normal 150-450 [facility] Comment on above: Performed By: #### C BCA, CMP #### [facility] ([id number]) [address], [address] [place] [address] RBC COUNT 2.55 X10E12/L Low 4.10-5.70 [facility] Comment on above: Performed By: #### C BCA, CMP #### [facility] ([id number]) [address], [address] [place] [address] WBC (Bld) [#/Vol] 7.6 10*3/uL Normal 4.0-11.0 [facility] Comment on above: Performed By: #### C BCA, CMP #### [facility] ([id number]) [address], [address] [place] [address] ABSOLUTE BASOPHIL 0.0 X10E9/L Normal 0.0-0.2 [facility] Comment on above: Performed By: #### P INR, 30061-6, 65401-9, CBCA, 63748-7, CMP, 4548-4, 6873-4 #### [facility] ([id number]) [address] [place] [address] #### HA1C #### [facility] ([id number]) [address], [address] [place] [address] ABSOLUTE NEUTROPHIL 6.7 X10E9/L High 1.5-6.6 [facility] Comment on above: Performed By: #### P INR, 72106-0, 88006-2, CBCA, 41436-5, CMP, 4548-4, 6873-4 #### [facility] ([id number]) [address] [place] [address] #### HA1C #### [facility] ([id number]) [address] [place] [address] Basophils/100 WBC (Bld) 0.3 % Normal P [facility] Comment on above: Performed By: #### P INR, 17496-7, 74934-0, CBCA, 24260-8, CMP, 4548-4, 6873-4 #### [facility] ([id number]) [address] [place] [address] #### HA1C #### [facility] ([id number]) [address] [place] [address] Eosinophils (Bld) [#/Vol] 0.0 10*3/uL Normal 0.0-0.4 [facility] Comment on above: Performed By: #### P INR, 29371-9, 17149-0, CBCA, 02059-8, CMP, 4548-4, 6873-4 #### [facility] ([id number]) [address] [place] [address] #### HA1C #### [facility] ([id number]) [address] [facility] [place] [address] Eosinophils/100 WBC (Bld) 0.1 % Normal [facility] Comment on above: Performed By: #### P INR, 71347-8, 08906-7, CBCA, 92167-5, CMP, 4548-4, 6873-4 #### [facility] ([id number]) [address] [place] [address] #### HA1C #### [facility] ([id number]) [address] [facility] [facility] [place] [address] Erythrocyte distribution width (RBC) [Ratio] 14.3 % Normal 11.5-15.0 [facility] Comment on above: Performed By: #### P INR, 88313-7, 11793-7, CBCA, 28285-2, CMP, 4548-4, 6873-4 #### [facility] ([id number]) [address] [place] [address] #### HA1C #### [facility] ([id number]) [address] [place] [address] Hematocrit (Bld) [Volume fraction] 25.1 % Low 39-49 [facility] Comment on above: Performed By: #### P INR, 35325-9, 99074-9, CBCA, 28185-9, CMP, 4548-4, 6873-4 #### [facility] ([id number]) [address] [place] [address] #### HA1C #### [facility] ([id number]) [address] [place] [address] Hemoglobin (Bld) [Mass/Vol] 8.7 g/dL Low 13.0-17.0 [facility] Comment on above: Performed By: #### P INR, 43730-5, 52741-8, CBCA, 42899-7, CMP, 4548-4, 6873-4 #### [facility] ([id number]) [address] [place] [address] #### HA1C #### [facility] ([id number]) [address] [place] [address] Lymphocytes (Bld) [#/Vol] 1.3 10*3/uL Normal 1.0-3.5 [facility] Comment on above: Performed By: #### P INR, 50800-2, 03499-8, CBCA, 39014-7, CMP, 4548-4, 6873-4 #### [facility] ([id number]) [address] [place] [address] #### HA1C #### [facility] ([id number]) [address] [place] [address] Lymphocytes/100 WBC (Bld) 15.7 % Normal [facility] Comment on above: Performed By: #### P INR, 14130-2, 13924-0, CBCA, 53432-6, CMP, 4548-4, 6873-4 #### [facility] ([id number]) [address] [place] [address] #### HA1C #### [facility] ([id number]) [address] [place] [address] MCH (RBC) [Entitic mass] 30.6 pg Normal 27-34 [facility] Comment on above: Performed By: #### P INR, 37362-8, 28811-5, CBCA, 36072-3, CMP, 4548-4, 6873-4 #### [facility] ([id number]) [address] [place] [address] #### HA1C #### [facility] ([id number]) [address] [place] [address] MCHC (RBC) [Mass/Vol] 34.8 g/dL Normal 32-36 [facility] Comment on above: Performed By: #### P INR, 24858-1, 37537-2, CBCA, 89124-3, CMP, 4548-4, 6873-4 #### [facility] ([id number]) [address] [place] [address] #### HA1C #### [facility] ([id number]) [address] [facility] [place] [address] MCV (RBC) [Entitic vol] 88 fL Normal 80-100 [facility] Comment on above: Performed By: #### P INR, 39245-6, 73395-9, CBCA, 41600-1, CMP, 4548-4, 6873-4 #### [facility] ([id number]) [address] [place] [address] #### HA1C #### [facility] ([id number]) [address] [place] [address] Monocytes (Bld) [#/Vol] 0.4 10*3/uL Normal 0-0.9 [facility] Comment on above: Performed By: #### P INR, 98070-8, 70822-0, CBCA, 43324-3, CMP, 4548-4, 6873-4 #### [facility] ([id number]) [address] [place] [address] #### HA1C #### [facility] ([id number]) [address] [place] [address] Monocytes/100 WBC (Bld) 5.0 % Normal P [facility] Comment on above: Performed By: #### P INR, 27861-0, 11417-6, CBCA, 37377-0, CMP, 4548-4, 6873-4 #### [facility] ([id number]) [address] [place] [address] #### HA1C #### [facility] ([id number]) [address] [place] [address] Neutrophils/100 WBC (Bld) 78.9 % Normal [facility] Comment on above: Performed By: #### P INR, 39833-2, 59779-6, CBCA, 66344-0, CMP, 4548-4, 6873-4 #### [facility] ([id number]) [address] [place] [address] #### HA1C #### [facility] ([id number]) [address] [place] [address] Platelet mean volume (Bld) [Entitic vol] 7.4 fL Normal 7-12 [facility] Comment on above: Performed By: #### P INR, 38491-8, 73103-6, CBCA, 21117-2, CMP, 4548-4, 6873-4 #### [facility] ([id number]) [address] [place] [address] #### HA1C #### [facility] ([id number]) [address], [address] [place] [address] Platelets (Bld) [#/Vol] 285 10*3/uL Normal 150-450 [facility] Comment on above: Performed By: #### P INR, 51148-4, 02939-1, CBCA, 43949-2, CMP, 4548-4, 6873-4 #### [facility] ([id number]) [address] [place] [address] #### HA1C #### [facility] ([id number]) [address], [address] [place] [address] RBC COUNT 2.86 X10E12/L Low 4.10-5.70 [facility] Comment on above: Performed By: #### P INR, 71046-2, 01203-9, CBCA, 70395-0, CMP, 4548-4, 6873-4 #### [facility] ([id number]) [address] [place] [address] #### HA1C #### [facility] ([id number]) [address], [address] [place] [address] WBC (Bld) [#/Vol] 8.5 10*3/uL Normal 4.0-11.0 [facility] Comment on above: Performed By: #### P INR, 98731-9, 69759-0, CBCA, 14538-9, CMP, 4548-4, 6873-4 #### [facility] ([id number]) [address] [place] [address], [place] [address] #### HA1C #### [facility] ([id number]) [address], [address] [place] [address] COMPREHENSIVE METABOLIC PANE [place] 04-10-2024 Albumin [Mass/Vol] 3.9 g/dL Normal 3.2-5.3 [facility] Comment on above: Performed By: #### C BCA, CMP #### [facility] ([id number]) [address] [place] [address] ALP [Catalytic activity/Vol] 54 U/L Normal 39-130 [facility] Comment on above: Performed By: #### C BCA, CMP #### [facility] ([id number]) [address], [address] [place] [address] ALT [Catalytic activity/Vol] 8 U/L Normal 0-40 [facility] Comment on above: Performed By: #### C BCA, CMP #### [facility] ([id number]) [address], [address] [place] [address] Anion gap [Moles/Vol] 9 mmol/L Normal 5-15 [facility] Comment on above: Performed By: #### C BCA, CMP #### [facility] ([id number]) [address], [address] [place] [address] AST [Catalytic activity/Vol] 10 U/L Normal 0-41 [facility] [facility] Comment on above: Performed By: #### C BCA, CMP #### [facility] ([id number]) [address], [address] [place] [address] Bilirubin [Mass/Vol] 0.6 mg/dL Normal 0.3-1.2 [facility] Comment on above: Performed By: #### C BCA, CMP #### [facility] ([id number]) [address], [address] [place] [address] Calcium [Mass/Vol] 8.8 mg/dL Normal 8.5-10.5 [facility] Comment on above: Performed By: #### C BCA, CMP #### [facility] ([id number]) [address], [address] [place] [address] Chloride [Moles/Vol] 109 mmol/L Normal 98-109 [facility] Comment on above: Performed By: #### C BCA, CMP #### [facility] ([id number]) [address] [address] [place] [address] CO2 [Moles/Vol] 23 mmol/L Normal 22-32 [facility] Comment on above: Performed By: #### C BCA, CMP #### [facility] ([id number]) [address], [address] [place] [address] Creatinine [Mass/Vol] 0.83 mg/dL Normal 0.60-1.30 [facility] Comment on above: Result Comment: METH OD TRACEABLE TO IDMS STANDARD Performed By: #### C BCA, CMP #### [facility] ([id number]) [address] [address] [place] [address] eGFR (CKD-EPI) NON-RACE DEPENDENT >90 Normal >59 [facility] Comment on above: Result Comment: Reported eGFR is based on the CKD-EPI 2020 equation that does not use a race coefficient. Performed By: #### C BCA, CMP #### [facility] ([id number]) [address], [address] [place] [address] Glucose [Mass/Vol] 193 mg/dL High 65-99 [facility] Comment on above: Performed By: #### C BCA, CMP #### [facility] ([id number]) [address], [address] [place] [address] Potassium [Moles/Vol] 4.1 mmol/L Normal 3.5-5.0 [facility] Comment on above: Performed By: #### C BCA, CMP #### [facility] ([id number]) [address], [address] [place] [address] Protein [Mass/Vol] 5.7 g/dL Low 6.0-8.0 [facility] Comment on above: Performed By: #### C BCA, CMP #### [facility] ([id number]) [address], [address] [place] [address] Sodium [Moles/Vol] 141 mmol/L Normal 134-146 [facility] Comment on above: Performed By: #### C BCA, CMP #### [facility] ([id number]) [address] [place] [address] Urea nitrogen [Mass/Vol] 54 mg/dL High 5-27 [facility] Comment on above: Performed By: #### C BCA, CMP #### [facility] ([id number]) [address], [address] [place] [address] Albumin [Mass/Vol] 3.8 g/dL Normal 3.2-5.3 [facility] Comment on above: Performed By: #### P INR, 07967-4, 44385-8, CBCA, 17274-8, CMP, 4548-4, 6873-4 #### [facility] ([id number]) [address] [place] [address] #### HA1C #### [facility] ([id number]) [address] [place] [address] ALP [Catalytic activity/Vol] 55 U/L Normal 39-130 [facility] Comment on above: Performed By: #### P INR, 07799-6, 04223-7, CBCA, 03915-9, CMP, 4548-4, 6873-4 #### [facility] ([id number]) [address] [place] [address] #### HA1C #### [facility] ([id number]) [address], [address] [place] [address] ALT [Catalytic activity/Vol] 13 U/L Normal 0-40 [facility] Comment on above: Performed By: #### P INR, 36554-2, 81731-9, CBCA, 58993-4, CMP, 4548-4, 6873-4 #### [facility] ([id number]) [address] [place] [address] #### HA1C #### [facility] ([id number]) [address] [place] [address] Anion gap [Moles/Vol] 11 mmol/L Normal 5-15 [facility] Comment on above: Performed By: #### P INR, 40385-1, 00781-3, CBCA, 89668-4, CMP, 4548-4, 6873-4 #### [facility] ([id number]) [address] [place] [address] #### HA1C #### [facility] ([id number]) [address], [address] [place] [address] AST [Catalytic activity/Vol] 14 U/L Normal 0-41 [facility] Comment on above: Performed By: #### P INR, 51422-9, 00348-3, CBCA, 98062-2, CMP, 4548-4, 6873-4 #### [facility] ([id number]) [address] [place] [address] #### HA1C #### [facility] ([id number]) [address], [address] [place] [address] Bilirubin [Mass/Vol] 0.4 mg/dL Normal 0.3-1.2 [facility] Comment on above: Performed By: #### P INR, 42513-8, 61159-5, CBCA, 55882-2, CMP, 4548-4, 6873-4 #### [facility] ([id number]) [address] [place] [address] #### HA1C #### [facility] ([id number]) [address], [address] [place] [address] Calcium [Mass/Vol] 8.6 mg/dL Normal 8.5-10.5 [facility] Comment on above: Performed By: #### P INR, 97771-9, 19837-3, CBCA, 89625-8, CMP, 4548-4, 6873-4 #### [facility] ([id number]) [address] [place] [address] 99[address] #### HA1C #### [facility] ([id number]) [address], [address] [place] [address] Chloride [Moles/Vol] 106 mmol/L Normal 98-109 [facility] Comment on above: Performed By: #### P INR, 80823-6, 57599-9, CBCA, 34370-3, CMP, 4548-4, 6873-4 #### [facility] ([id number]) [address] [place] [address] #### HA1C #### [facility] ([id number]) [address], [address] [place] [address] CO2 [Moles/Vol] 20 mmol/L Low 22-32 [facility] Comment on above: Performed By: #### P INR, 51783-4, 64209-3, CBCA, 32568-3, CMP, 4548-4, 6873-4 #### [facility] ([id number]) [address] [place] [address] #### HA1C #### [facility] ([id number]) [address] [place] [address] Creatinine [Mass/Vol] 1.02 mg/dL Normal 0.70-1.20 [facility] Comment on above: Result Comment: METH OD TRACEABLE TO IDMS STANDARD Performed By: #### P INR, 24105-3, 07964-0, CBCA, 32932-5, CMP, 4548-4, 6873-4 #### [facility] ([id number]) [address] [place] [address] 110[address] #### HA1C #### [facility] ([id number]) [address] [place] [address] GFR/1.73 sq M.predicted among non-blacks MDRD (S/P/Bld) [Vol rate/Area] 79 mL/min/{1.73_m2} Normal >59 [facility] Comment on above: Result Comment: Reported eGFR is based on the CKD-EPI 2020 equation that does not use a race coefficient. Performed By: #### P INR, 44071-3, 05463-9, CBCA, 19435-7, CMP, 4548-4, 6873-4 #### [facility] ([id number]) [address] [place] [address] 48181 #### HA1C #### [facility] ([id number]) [address], [address] [place] [address] Glucose [Mass/Vol] 195 mg/dL High 65-99 [facility] Comment on above: Performed By: #### P INR, 43532-2, 77735-4, CBCA, 52409-2, CMP, 4548-4, 6873-4 #### [facility] ([id number]) [address] [place] [address] #### HA1C #### [facility] ([id number]) [address] [facility] [place] [address] Potassium [Moles/Vol] 4.1 mmol/L Normal 3.5-5.0 [facility] Comment on above: Performed By: #### P INR, 52797-2, 47072-1, CBCA, 35230-4, CMP, 4548-4, 6873-4 #### [facility] ([id number]) [address] [place] [address] #### HA1C #### [facility] ([id number]) [address] [facility] [place] [address] Protein [Mass/Vol] 6.1 g/dL Normal 6.0-8.0 [facility] Comment on above: Performed By: #### P INR, 37111-5, 87418-2, CBCA, 55560-8, CMP, 4548-4, 6873-4 #### [facility] ([id number]) [address] [place] [address] 11817 #### HA1C #### [facility] ([id number]) [address] [place] [address] Sodium [Moles/Vol] 137 mmol/L Normal 134-146 [facility] Comment on above: Performed By: #### P INR, 01116-5, 04396-3, CBCA, 36033-5, CMP, 4548-4, 6873-4 #### [facility] ([id number]) [address] [place] [address] 06987 #### HA1C #### [facility] ([id number]) [address] [place] [address] Urea nitrogen [Mass/Vol] 86 mg/dL High 5-27 [facility] Comment on above: Performed By: #### P INR, 37913-3, 84328-9, CBCA, 48882-0, CMP, 4548-4, 6873-4 #### [facility] ([id number]) [address] [facility] [place] [address] #### HA1C #### [facility] ([id number]) [address] [facility] [place] [address] CT BRAIN WO CONTon 4 CT BRAIN [...] Jaramillo MD on 04/10/2024 2:20 PM Normal [facility] CT CTA CAROTIDon 04-10-2024 CT CTA CAROTID [...] supervision. Automated exposure control utilized. The [place] Symptomatic Carotid Endarterectomy Trial (NASCET) method for [...] Beatty MD on 04/10/2024 3:14 PM Normal [facility] CT CTA HEADon 04-10-2024 CT CTA HEAD [...] Beatty MD on 04/10/2024 2:51 PM Normal [facility] Glucose Glucometer (BldC) [M ass/Vol]on 04-10-2024 Glucose [Mass/Vol] 188 mg/dL High 65-99 [facility] Glucose [Mass/Vol] 233 mg/dL High 65-99 [facility] Glucose [Mass/Vol] 232 mg/dL High 65-99 [facility] Glucose [Mass/Vol] 232 mg/dL High 65-99 [facility] Glucose [Mass/Vol] 205 mg/dL High 65-99 [facility] MAGNESIUMon 04-10-2024 Magnesium [Mass/Vol] 2.3 mg/dL Normal 1.8-2.6 [facility] Comment on above: Performed By: #### P INR, 54830-0, 15473-8, CBCA, 72556-5, CMP, 4548-4, 6873-4 #### [facility] ([id number]) [address] [place] [address], [place] [address] #### HA1C #### [facility] ([id number]) [address] [facility] [place] [address] PHOSPHORUSon 04-10-2024 Phosphate [Mass/Vol] 4.2 mg/dL Normal 2.4-4.9 [facility] Comment on above: Performed By: #### P INR, 74467-7, 84276-2, CBCA, 68968-1, CMP, 4548-4, 6873-4 #### [facility] ([id number]) [address] [place] [address] #### HA1C #### [facility] ([id number]) [address] [place] [address] URINALYSISon 04-10-2024 Bilirubin Ql (U) Negative Normal NEG [facility] Comment on above: Performed By: #### U A #### [facility] ([id number]) [address] [facility] [place] [address] BLOOD/HGB Negative Normal NEG [facility] Comment on above: Performed By: #### U A #### [facility] ([id number]) [address] [facility] [place] [address] Color (U) YELLOW Normal YELLOW [facility] Comment on above: Performed By: #### U A #### [facility] ([id number]) [address], [address] [place] [address] Glucose Ql (U) Negative Normal NEG [facility] Comment on above: Performed By: #### U A #### [facility] ([id number]) [address], [address] [place] [address] Ketones Ql (U) Negative Normal NEG [facility] Comment on above: Performed By: #### U A #### [facility] ([id number]) [address], [address] [place] [address] Leukocyte esterase Test strip Ql (U) Negative Normal NEG [facility] Comment on above: Performed By: #### U A #### [facility] ([id number]) [address] [place] [address] Nitrite Ql (U) Negative Normal NEG [facility] Comment on above: Performed By: #### U A #### [facility] ([id number]) [address] [place] [address] pH (U) 5.5 [pH] Normal 5.0-8.5 [facility] Comment on above: Performed By: #### U A #### [facility] ([id number]) [address], [address] [place] [address] Protein Ql (U) Negative Normal NEG [facility] Comment on above: Performed By: #### U A #### [facility] ([id number]) [address], [address] [place] [address] Specific gravity (U) [Rel density] 1.039 High 1.003-1.035 [facility] Comment on above: Performed By: #### U A #### [facility] ([id number]) [address] [place] [address] TURBIDITY CLEAR Normal CLEAR [facility] Comment on above: Performed By: #### U A #### [facility] ([id number]) [address] [address] [place] [address] Urinalysis dipstick W Reflex Microscopic panel (U) URINE RECEIVED WITHOUT PRESERVATIVE-DELAYS IN TRANSPORT MAY AFFECT RESULTS.INTERPRET WITH CAUTION AND CLINICAL CORRELATION IS RECOMMENDED. Normal [facility] Comment on above: Performed By: #### U A #### [facility] ([id number]) [address] [facility] [address] [place] [address] Urobilinogen (U) [Mass/Vol] mg/dL Normal <1.1 [facility] Comment on above: Performed By: #### U A #### [facility] ([id number]) [address] [address] BASIC METABOLIC PANLon 04-09 Anion gap [Moles/Vol] 12 mmol/L Normal 5-15 [facility] Comment on above: Performed By: #### P INR, 61917-7, 92503-1, CBCA, 04184-7, CMP, 4548-4, 6873-4 #### [facility] ([id number]) [address] [place] [address] #### HA1C #### [facility] ([id number]) [address] [address] Calcium [Mass/Vol] 8.4 mg/dL Low 8.5-10.5 [facility] Comment on above: Performed By: #### P INR, 53463-9, 36930-9, CBCA, 50502-2, CMP, 4548-4, 6873-4 #### [facility] ([id number]) [address] [place] [address] #### HA1C #### [facility] ([id number]) [address] [address] [place] [address] Chloride [Moles/Vol] 102 mmol/L Normal 98-109 [facility] Comment on above: Performed By: #### P INR, 20568-8, 75082-5, CBCA, 32439-1, CMP, 4548-4, 6873-4 #### [facility] ([id number]) [address] [place] [address] #### HA1C #### [facility] ([id number]) [address] [place] [address] CO2 [Moles/Vol] 17 mmol/L Low 22-32 [facility] Comment on above: Performed By: #### P INR, 45600-8, 54508-4, CBCA, 34311-0, CMP, 4548-4, 6873-4 #### [facility] ([id number]) [address] [place] [address] #### HA1C #### [facility] ([id number]) [address] [place] [address] Creatinine [Mass/Vol] 1.49 mg/dL High 0.70-1.20 [facility] Comment on above: Result Comment: METH OD TRACEABLE TO IDMS STANDARD Performed By: #### P INR, 99896-2, 93749-3, CBCA, 20023-3, CMP, 4548-4, 6873-4 #### [facility] ([id number]) [address] [place] [address] #### HA1C #### [facility] ([id number]) [address] [place] [address] GFR/1.73 sq M.predicted among non-blacks MDRD (S/P/Bld) [Vol rate/Area] 50 mL/min/{1.73_m2} Low >59 [facility] Comment on above: Result Comment: Reported eGFR is based on the CKD-EPI 2020 equation that does not use a race coefficient. Performed By: #### P INR, 89991-9, 10230-3, CBCA, 91119-6, CMP, 4548-4, 6873-4 #### [facility] ([id number]) [address] [place] [address] #### HA1C #### [facility] ([id number]) [address] [place] [address] Glucose [Mass/Vol] 328 mg/dL High 65-99 [facility] Comment on above: Performed By: #### P INR, 41886-4, 97969-7, CBCA, 12437-9, CMP, 4548-4, 6873-4 #### [facility] ([id number]) [address] [place] [address] 24516 #### HA1C #### [facility] ([id number]) [address] [place] [address] Potassium [Moles/Vol] 4.7 mmol/L Normal 3.5-5.0 [facility] Comment on above: Performed By: #### P INR, 03241-8, 70188-4, CBCA, 43792-7, CMP, 4548-4, 6873-4 #### [facility] ([id number]) [address] [place] [address] #### HA1C #### [facility] ([id number]) [address] [place] [address] Sodium [Moles/Vol] 131 mmol/L Low 134-146 [facility] Comment on above: Performed By: #### P INR, 24207-2, 02172-7, CBCA, 89676-5, CMP, 4548-4, 6873-4 #### [facility] ([id number]) [address] [place] [address] 12704 #### HA1C #### [facility] ([id number]) [address] [facility] [place] [address] Urea nitrogen [Mass/Vol] 112 mg/dL High 5-27 [facility] Comment on above: Performed By: #### P INR, 33021-6, 79636-4, CBCA, 18236-0, CMP, 4548-4, 6873-4 #### [facility] ([id number]) [address] [place] [address] #### HA1C #### [facility] ([id number]) [address] [facility] [place] [address] CBC AND AUTO DIFFon 04-09-20 24 ABSOLUTE BASOPHIL 0.0 X10E9/L Normal 0.0-0.2 [facility] Comment on above: Performed By: #### P INR, 04936-2, 95420-2, CBCA, 81971-8, CMP, 4548-4, 6873-4 #### [facility] ([id number]) [address] [place] [address] 95676 #### HA1C #### [facility] ([id number]) [address] [facility] [place] [address] ABSOLUTE NEUTROPHIL 8.5 X10E9/L High 1.5-6.6 [facility] Comment on above: Performed By: #### P INR, 86248-4, 73944-6, CBCA, 99809-9, CMP, 4548-4, 6873-4 #### [facility] ([id number]) [address] [place] [address] #### HA1C #### [facility] ([id number]) [address] [facility] [place] [address] Basophils/100 WBC (Bld) 0.4 % Normal [facility] Comment on above: Performed By: #### P INR, 13802-2, 67230-1, CBCA, 36493-9, CMP, 4548-4, 6873-4 #### [facility] ([id number]) [address] [place] [address] #### HA1C #### [facility] ([id number]) [address] [place] [address] Eosinophils (Bld) [#/Vol] 0.0 10*3/uL Normal 0.0-0.4 [facility] Comment on above: Performed By: #### P INR, 13419-9, 57271-7, CBCA, 97857-4, CMP, 4548-4, 6873-4 #### [facility] ([id number]) [address] [place] [address] #### HA1C #### [facility] ([id number]) [address] [place] [address] Eosinophils/100 WBC (Bld) 0.1 % Normal [facility] Comment on above: Performed By: #### P INR, 86282-1, 83992-2, CBCA, 07932-9, CMP, 4548-4, 6873-4 #### [facility] ([id number]) [address] [place] [address] #### HA1C #### [facility] ([id number]) [address] [place] [address] Erythrocyte distribution width (RBC) [Ratio] 13.9 % Normal 11.5-15.0 [facility] Comment on above: Performed By: #### P INR, 22025-5, 08259-9, CBCA, 99168-8, CMP, 4548-4, 6873-4 #### [facility] ([id number]) [address] [place] [address] #### HA1C #### [facility] ([id number]) [address] [place] [address] Hematocrit (Bld) [Volume fraction] 28.3 % Low 39-49 [facility] Comment on above: Performed By: #### P INR, 50647-1, 29978-1, CBCA, 97367-2, CMP, 4548-4, 6873-4 #### [facility] ([id number]) [address] [place] [address] #### HA1C #### [facility] ([id number]) [address] [place] [address] Hemoglobin (Bld) [Mass/Vol] 9.8 g/dL Low 13.0-17.0 [facility] Comment on above: Performed By: #### P INR, 75380-8, 60246-8, CBCA, 39033-9, CMP, 4548-4, 6873-4 #### [facility] ([id number]) [address] [place] [address] #### HA1C #### [facility] ([id number]) [address] [place] [address] Lymphocytes (Bld) [#/Vol] 0.9 10*3/uL Low 1.0-3.5 [facility] Comment on above: Performed By: #### P INR, 84458-7, 86638-8, CBCA, 88682-6, CMP, 4548-4, 6873-4 #### [facility] ([id number]) [address] [place] [address] #### HA1C #### [facility] ([id number]) [address], [address] [place] [address] Lymphocytes/100 WBC (Bld) 9.0 % Normal [facility] Comment on above: Performed By: #### P INR, 85969-7, 72970-6, CBCA, 80780-5, CMP, 4548-4, 6873-4 #### [facility] ([id number]) [address] [place] [address] #### HA1C #### [facility] ([id number]) [address], [address] [place] [address] MCH (RBC) [Entitic mass] 30.9 pg Normal 27-34 [facility] Comment on above: Performed By: #### P INR, 15497-8, 92618-2, CBCA, 64118-3, CMP, 4548-4, 6873-4 #### [facility] ([id number]) [address] [place] [address] #### HA1C #### [facility] ([id number]) [address], [address] [place] [address] MCHC (RBC) [Mass/Vol] 34.6 g/dL Normal 32-36 [facility] Comment on above: Performed By: #### P INR, 62328-7, 25805-3, CBCA, 44031-3, CMP, 4548-4, 6873-4 #### [facility] ([id number]) [address] [place] [address] #### HA1C #### [facility] ([id number]) [address], [address] [place] [address] MCV (RBC) [Entitic vol] 89 fL Normal 80-100 P [facility] Comment on above: Performed By: #### P INR, 59731-2, 49481-3, CBCA, 08139-8, CMP, 4548-4, 6873-4 #### [facility] ([id number]) [address] [place] [address] #### HA1C #### [facility] ([id number]) [address], [address] [place] [address] Monocytes (Bld) [#/Vol] 0.3 10*3/uL Normal 0-0.9 [facility] Comment on above: Performed By: #### P INR, 17065-7, 77654-5, CBCA, 27309-7, CMP, 4548-4, 6873-4 #### [facility] ([id number]) [address] [place] [address] #### HA1C #### [facility] ([id number]) [address], [address] [place] [address] Monocytes/100 WBC (Bld) 3.2 % Normal [facility] Comment on above: Performed By: #### P INR, 52720-8, 34314-2, CBCA, 61064-1, CMP, 4548-4, 6873-4 #### [facility] ([id number]) [address] [place] [address] #### HA1C #### [facility] ([id number]) [address], [address] [place] [address] Neutrophils/100 WBC (Bld) 87.3 % Normal [facility] [place] Comment on above: Performed By: #### P INR, 53871-4, 49661-8, CBCA, 93577-7, CMP, 4548-4, 6873-4 #### [facility] ([id number]) [address] [place] [address] #### HA1C #### [facility] ([id number]) [address], [address] [place] [address] Platelet mean volume (Bld) [Entitic vol] 8.1 fL Normal 7-12 [facility] [place] Comment on above: Performed By: #### P INR, 58100-1, 03103-1, CBCA, 29258-5, CMP, 4548-4, 6873-4 #### [facility] ([id number]) [address] [place] [address] 69304 #### HA1C #### [facility] ([id number]) [address], [address] [place] [address] Platelets (Bld) [#/Vol] 330 10*3/uL Normal 150-450 [facility] [place] Comment on above: Performed By: #### P INR, 30115-9, 85703-2, CBCA, 57831-9, CMP, 4548-4, 6873-4 #### [facility] ([id number]) [address] [place] [address] 42746 #### HA1C #### [facility] ([id number]) [address], [address] [place] [address] RBC COUNT 3.16 X10E12/L Low 4.10-5.70 [facility] [place] Comment on above: Performed By: #### P INR, 52553-1, 61131-2, CBCA, 95152-6, CMP, 4548-4, 6873-4 #### [facility] ([id number]) [address] [place] [address] 25362 #### HA1C #### [facility] ([id number]) [address], [address] [place] [address] WBC (Bld) [#/Vol] 9.7 10*3/uL Normal 4.0-11.0 [facility] Comment on above: Performed By: #### P INR, 75392-1, 99062-3, CBCA, 23865-5, CMP, 4548-4, 6873-4 #### [facility] ([id number]) [address] [place] [address] 20123 #### HA1C #### [facility] ([id number]) [address] [place] [address] CT BRAIN WO CONT STROKE ALER Ton [...] Clay MD on 04/09/2024 8:10 AM Normal [facility] [place] CT CTA CAROTIDon 04-09-2024 CT CTA CAROTID [...] artery narrowing is assessed using the [place] Symptomatic Carotid Endarterectomy Trial (NASCET) method. Comparison: [...] Rothman MD on 04/09/2024 8:34 AM Normal [facility] [place] CT CTA HEADon 04-09-2024 CT CTA HEAD [...] Thomson MD on 04/09/2024 8:39 AM Normal [facility] [place] Glucose Glucometer (BldC) [M ass/Vol]on 04-09-2024 Glucose [Mass/Vol] 190 mg/dL High 65-99 [facility] Glucose [Mass/Vol] 222 mg/dL High 65-99 [facility] Glucose [Mass/Vol] 258 mg/dL High 65-99 [facility] HGB A1C (GLYCO-HGB)on 2023 Glucose [Mass/Vol] 169 mg/dL Normal [facility] Comment on above: Performed By: #### P INR, 40069-5, 78952-1, CBCA, 95136-4, CMP, 4548-4, 6873-4 #### [facility] ([id number]) [address] [place] [address] 63960 #### HA1C #### [facility] ([id number]) [address] [place] [address], [address] [place] [address] HbA1c (Bld) [Mass fraction] 7.5 % High 4.4-5.6 [facility] [place] Comment on above: Result Comment: NOTE ADA Guidelines Result HgbA1c Normal : less than 5.7 % Prediabetes : 5.7 % to 6.4 % Diabetes : > 6.4 % Use with caution in patients with abnormal hemoglobin variants as the half-life of red blood cells and in vivo glycation rates are affected. Performed By: #### P INR, 10257-9, 08377-9, CBCA, 20456-6, CMP, 4548-4, 6873-4 #### [facility] ([id number]) [address] [place] [address] 15072 #### HA1C #### [facility] ([id number]) [address] [facility], [address] [place] [address] Lipid 1996 panelon 4 Cholesterol [Mass/Vol] 142 mg/dL Low 150-200 [facility] Comment on above: Performed By: #### P INR, 20198-3, 97651-7, CBCA, 84556-5, CMP, 4548-4, 6873-4 #### [facility] ([id number]) [address] [place] [address] 96083 #### HA1C #### [facility] ([id number]) [address] [place] [address], [address] [place] [address] Cholesterol in HDL [Mass/Vol] 27 mg/dL Low >39 [facility] [place] Comment on above: Result Comment: HDL <40 mg/dL - High Risk HDL > or = 40mg/dL- Desirable HDL >60 mg/dL - Negative Risk Performed By: #### P INR, 23854-1, 28694-1, CBCA, 07865-1, CMP, 4548-4, 6873-4 #### [facility] ([id number]) [address] [place] [address] 94875 #### HA1C #### [facility] ([id number]) [facility], [address] [place] [address] Cholesterol in LDL [Mass/Vol] 76 mg/dL Normal <130 [facility] [place] Comment on above: Result Comment: LDL <100 mg/dL - Desirable LDL >160 mg/dL - High Risk Performed By: #### P INR, 16915-9, 42670-5, CBCA, 63119-4, CMP, 4548-4, 6873-4 #### [facility] ([id number]) [address] [place] [address] 17672 #### HA1C #### [facility] ([id number]) [address], [address] [place] [address] Cholesterol in VLDL [Mass/Vol] 39 mg/dL High 0-30 [facility] [place] Comment on above: Performed By: #### P INR, 72740-7, 95959-8, CBCA, 10240-4, CMP, 4548-4, 6873-4 #### [facility] ([id number]) [address] [place] [address] 51470 #### HA1C #### [facility] ([id number]) [address], [address] [place] [address] CHOLESTEROL:HDL 5.3 High 1.0-5.0 [facility] [place] Comment on above: Performed By: #### P INR, 91178-1, 08908-4, CBCA, 29263-5, CMP, 4548-4, 6873-4 #### [facility] ([id number]) [address] [place] [address] 68231 #### HA1C #### [facility] ([id number]) [address], [address] [place] [address] Triglyceride [Mass/Vol] 196 mg/dL High 27-150 [facility] Comment on above: Performed By: #### P INR, 04297-0, 95893-9, CBCA, 38670-2, CMP, 4548-4, 6873-4 #### [facility] ([id number]) [address] [place] [address] 99628 #### HA1C #### [facility] ([id number]) [address], [address] [place] [address] MR BRAIN WO CONTon 06-14-202 4 MR [...] than peripheral volume loss. Bilateral hippocampal atrophy, xpsn-bw-ndtlqyix in severity. Few scattered foci of T2/FLAIR [...] Emmanuel Pastrana on 04/09/2024 9:55 AM Normal [facility] [place] PHOSPHORUSon 04-09-2024 Phosphate [Mass/Vol] 4.5 mg/dL Normal 2.4-4.9 [facility] Comment on above: Performed By: #### P INR, 96962-1, 20757-6, CBCA, 97448-8, CMP, 4548-4, 6873-4 #### [facility] ([id number]) [address] [place] [address] #### HA1C #### [facility] ([id number]) [address], [address] [place] [address] PROTIME AND INRon 04-09-2024 INR Coag (PPP) [Relative time] 1.2 {INR} High 0.8-1.1 [facility] [place] Comment on above: Performed By: #### P INR, 47818-2, 53131-4, CBCA, 06864-3, CMP, 4548-4, 6873-4 #### [facility] ([id number]) [address] [place] [address] 45883 #### HA1C #### [facility] ([id number]) [address] [facility], [address] [place] [address] PT Coag (PPP) [Time] 14.0 s High 9.8-13.2 [facility] Comment on above: Result Comment: NEW REFERENCE RANGE Performed By: #### P INR, 63921-7, 34540-6, CBCA, 18400-3, CMP, 4548-4, 6873-4 #### [facility] ([id number]) [address] [place] [address] 26357 #### HA1C #### [facility] ([id number]) [address] [facility], [address] [place] [address] Troponin I.cardiac High sens itivity method [Mass/Vol]on 04-09-2024 3 HOUR TROP I, HIGH SENSITIVITY 113 ng/L High <21 [facility] [place] Comment on above: Result Comment: Elevations of hs-Troponin may be due to causes other than myocardial ischemia. Recommend serial hs-Troponin testing be performed. For the initial evaluation and management of chest pain patients, refer to the algorithms linked below. Emergency Patient: [email or web address]/[email or web address] &uh=[place] Inpatient: [email or web address] &uh=acaea Performed By: #### P INR, 70858-5, 42533-7, CBCA, 12897-9, CMP, 4548-4, 6873-4 #### [facility] ([id number]) [address] [place] [address] 76628 #### HA1C #### [facility] ([id number]) [address] [place] [address], [address] [place] [address] 1 HOUR TROP I, HIGH SENSITIVITY 60 ng/L High <21 [facility] [place] Comment on above: Result Comment: Elevations of hs-Troponin may be due to causes other than myocardial ischemia. Recommend serial hs-Troponin testing be performed. For the initial evaluation and management of chest pain patients, refer to the algorithms linked below. Emergency Patient: [email or web address] [email or web address]/[email or web address]&[email or web address] &uh=acaea Inpatient: [email or web address] [email or web address]/[email or web address]&y=17907 &uh=acaea Performed By: #### P INR, 16081-5, 88420-1, CBCA, 61616-1, CMP, 4548-4, 6873-4 #### [facility] ([id number]) [address] [place] [address] 78702 #### HA1C #### [facility] ([id number]) [address] [place] [address], [address] [place] [address] TROPONIN I, HIGH SENSITIVITY 38 ng/L High <21 [facility] [place] Comment on above: Result Comment: Elevations of hs-Troponin may be due to causes other than myocardial ischemia. Recommend serial hs-Troponin testing be performed. For the initial evaluation and management of chest pain patients, refer to the algorithms linked below. Emergency Patient: [email or web address] AMERICA/dv/[email or web address] &uh=acaea Inpatient: [email or web address] &uh=acaea Performed By: #### P INR, 62594-2, 41020-0, CBCA, 29118-5, CMP, 4548-4, 6873-4 #### [facility] ([id number]) [address] [place] [address], [place] [address] #### HA1C #### [facility] ([id number]) [address] [place] [address], [address] [place] [address] XR ANKLE LT MIN 3 VWSon 03-27 [...] Rothman MD on 04/09/2024 9:32 AM Normal [facility] [place] XR KNEE LT 3 VWSon 4 XR [...] Keyes MD on 04/09/2024 9:29 AM Normal [facility] [place] XR PELVIS 1 OR 2 VWSon 04-09 [...] Rothman MD on 04/09/2024 9:37 AM Normal [facility] [place] XR WRIST RT MIN 3 VWSon 03-27 [...] Rothman MD on 04/09/2024 9:40 AM Normal [facility] [place] aPTT Coag (PPP) [Time]on aPTT Coag (Bld) [Time] 24 s Low 26-37 Pr [facility] Comment on above: Result Comment: NEW REFERENCE RANGE Performed By: #### P INR, 38894-3, 68363-6, CBCA, 52692-5, CMP, 4548-4, 6873-4 #### [facility] ([id number]) [address] [place] [address], [place] [address] #### HA1C #### [facility] ([id number]) [address] [place] [address], [address] [place] [address] XR Knee - right 4 Viewson Findings: [...] space and varus deformity. MANUALLY TRANSCRIBED RESULTS [facility] Radiology Study observation (narrative) [facility] BASIC METABOLIC PANLon 11-05 Anion gap [Moles/Vol] 11 mmol/L Normal 5-15 [facility] Comment on above: Performed By: #### P INR, 89206-7, 12314-8, CBCA, 50935-6, CMP, 4548-4, 6873-4 #### [facility] ([id number]) [address] [place] [address] 01673 #### HA1C #### [facility] ([id number]) [address] [facility], [address] [place] [address] Calcium [Mass/Vol] 8.8 mg/dL Normal 8.5-10.5 [facility] Comment on above: Performed By: #### P INR, 18481-7, 34796-9, CBCA, 80441-9, CMP, 4548-4, 6873-4 #### [facility] ([id number]) [address] [place] [address] 45398 #### HA1C #### [facility] ([id number]) [address] [place] [address] Chloride [Moles/Vol] 96 mmol/L Low 98-109 [facility] Comment on above: Performed By: #### P INR, 07603-7, 15224-8, CBCA, 99114-0, CMP, 4548-4, 6873-4 #### [facility] ([id number]) [address] [place] [address] 64332 #### HA1C #### [facility] ([id number]) [address], [address] [place] [address] CO2 [Moles/Vol] 24 mmol/L Normal 22-32 [facility] [place] Comment on above: Performed By: #### P INR, 74234-0, 94347-7, CBCA, 77120-4, CMP, 4548-4, 6873-4 #### [facility] ([id number]) [address] [place] [address] 21149 #### HA1C #### [facility] ([id number]) [address], [address] [place] [address] Creatinine [Mass/Vol] 0.75 mg/dL Normal 0.70-1.20 [facility] Comment on above: Result Comment: METH OD TRACEABLE TO IDMS STANDARD Performed By: #### P INR, 67702-2, 59993-1, CBCA, 30849-0, CMP, 4548-4, 6873-4 #### [facility] ([id number]) [address] [place] [address] 40347 #### HA1C #### [facility] ([id number]) [address], [address] [place] [address] eGFR (CKD-EPI) NON-RACE DEPENDENT >90 Normal >59 [facility] [place] Comment on above: Result Comment: Reported eGFR is based on the CKD-EPI 2021 equation that does not use a race coefficient. Performed By: #### P INR, 40217-3, 64194-3, CBCA, 04195-1, CMP, 4548-4, 6873-4 #### [facility] ([id number]) [address] [place] [address] 10709 #### HA1C #### [facility] ([id number]) [address], [address] [place] [address] Glucose [Mass/Vol] 263 mg/dL High 65-99 [facility] Comment on above: Performed By: #### P INR, 69194-2, 78776-7, CBCA, 27209-0, CMP, 4548-4, 6873-4 #### [facility] ([id number]) [address] [place] [address] 57330 #### HA1C #### [facility] ([id number]) [address], [address] [place] [address] Potassium [Moles/Vol] 4.2 mmol/L Normal 3.5-5.0 [facility] Comment on above: Performed By: #### P INR, 87132-4, 70114-8, CBCA, 89542-1, CMP, 4548-4, 6873-4 #### [facility] ([id number]) [address] [place] [address] 53344 #### HA1C #### [facility] ([id number]) [address], [address] [place] [address] Sodium [Moles/Vol] 131 mmol/L Low 134-146 [facility] Comment on above: Performed By: #### P INR, 53810-6, 47444-0, CBCA, 78266-3, CMP, 4548-4, 6873-4 #### [facility] ([id number]) [address] [place] [address] 57282 #### HA1C #### [facility] ([id number]) [address], [address] [place] [address] Urea nitrogen [Mass/Vol] 21 mg/dL Normal 5-27 [facility] [place] Comment on above: Performed By: #### P INR, 46367-5, 47690-2, CBCA, 59232-7, CMP, 4548-4, 6873-4 #### [facility] ([id number]) [address] [place] [address] 20674 #### HA1C #### [facility] ([id number]) [address], [address] [place] [address] CBC AND AUTO DIFFon 10-29-19 Erythrocyte distribution width (RBC) [Ratio] 13.8 % Normal 11.5-15.0 [facility] [place] Comment on above: Performed By: #### P INR, 54062-4, 46232-1, CBCA, 44060-6, CMP, 4548-4, 6873-4 #### [facility] ([id number]) [address] [place] [address] 32275 #### HA1C #### [facility] ([id number]) [address], [address] [place] [address] Hematocrit (Bld) [Volume fraction] 46.7 % Normal 39-49 [facility] [place] Comment on above: Performed By: #### P INR, 75923-0, 65013-8, CBCA, 81534-9, CMP, 4548-4, 6873-4 #### [facility] ([id number]) [address] [place] [address] 88531 #### HA1C #### [facility] ([id number]) [address], [address] [place] [address] Hemoglobin (Bld) [Mass/Vol] 16.0 g/dL Normal 13.0-17.0 [facility] [place] Comment on above: Performed By: #### P INR, 19984-3, 69561-9, CBCA, 29624-4, CMP, 4548-4, 6873-4 #### [facility] ([id number]) [address] [place] [address] 99930 #### HA1C #### [facility] ([id number]) [address], [address] [place] [address] LYMPHOCYTE, ATYPICAL 8.8 % Normal [facility] Comment on above: Performed By: #### P INR, 14704-4, 73302-9, CBCA, 83174-1, CMP, 4548-4, 6873-4 #### [facility] ([id number]) [address] [place] [address] 18237 #### HA1C #### [facility] ([id number]) [address], [address] [place] [address] Lymphocytes (Bld) [#/Vol] 1.9 10*3/uL Normal 1.0-3.5 [facility] [place] Comment on above: Performed By: #### P INR, 73334-8, 49296-5, CBCA, 57632-3, CMP, 4548-4, 6873-4 #### [facility] ([id number]) [address] [place] [address] 74647 #### HA1C #### [facility] ([id number]) [address], [address] [place] [address] Lymphocytes/100 WBC (Bld) 46.1 % Normal [facility] [place] Comment on above: Performed By: #### P INR, 17630-8, 99715-2, CBCA, 50682-3, CMP, 4548-4, 6873-4 #### [facility] ([id number]) [address] [place] [address] 63501 #### HA1C #### [facility] ([id number]) [address], [address] [place] [address] MCH (RBC) [Entitic mass] 29.4 pg Normal 27-34 [facility] [place] Comment on above: Performed By: #### P INR, 12612-5, 78330-8, CBCA, 76055-5, CMP, 4548-4, 6873-4 #### [facility] ([id number]) [address] [place] [address] 60222 #### HA1C #### [facility] ([id number]) [address], [address] [place] [address] MCHC (RBC) [Mass/Vol] 34.2 g/dL Normal 32-36 [facility] Comment on above: Performed By: #### P INR, 55893-6, 74977-2, CBCA, 27196-1, CMP, 4548-4, 6873-4 #### [facility] ([id number]) [address] [place] [address] 93215 #### HA1C #### [facility] ([id number]) [address], [address] [place] [address] MCV (RBC) [Entitic vol] 86 fL Normal 80-100 P [facility] Comment on above: Performed By: #### P INR, 01823-7, 97989-4, CBCA, 73612-5, CMP, 4548-4, 6873-4 #### [facility] ([id number]) [address] [place] [address] 35248 #### HA1C #### [facility] ([id number]) [address], [address] [place] [address] Monocytes (Bld) [#/Vol] 0.2 10*3/uL Normal 0-0.9 [facility] [place] Comment on above: Performed By: #### P INR, 11959-0, 68265-1, CBCA, 26166-6, CMP, 4548-4, 6873-4 #### [facility] ([id number]) [address] [place] [address] 80756 #### HA1C #### [facility] ([id number]) [address], [address] [place] [address] Monocytes/100 WBC (Bld) 4.9 % Normal [facility] Comment on above: Performed By: #### P INR, 34274-2, 09736-3, CBCA, 31383-4, CMP, 4548-4, 6873-4 #### [facility] ([id number]) [address] [place] [address] 42621 #### HA1C #### [facility] ([id number]) [address] [place] [address] Neutrophils (Bld) [#/Vol] 1.4 10*3/uL Low 1.5-6.6 [facility] [place] Comment on above: Performed By: #### P INR, 79175-4, 35408-2, CBCA, 03000-4, CMP, 4548-4, 6873-4 #### [facility] ([id number]) [address] [place] [address] 65802 #### HA1C #### [facility] ([id number]) [address] [place] [address] Platelet mean volume (Bld) [Entitic vol] 7.7 fL Normal 7-12 [facility] [place] Comment on above: Performed By: #### P INR, 07064-7, 00588-0, CBCA, 74988-7, CMP, 4548-4, 6873-4 #### [facility] ([id number]) [address] [place] [address] 97507 #### HA1C #### [facility] ([id number]) [address] [place] [address] Platelets (Bld) [#/Vol] 214 10*3/uL Normal 150-450 [facility] [place] Comment on above: Performed By: #### P INR, 57580-3, 32406-9, CBCA, 93051-1, CMP, 4548-4, 6873-4 #### [facility] ([id number]) [address] [place] [address] 29027 #### HA1C #### [facility] ([id number]) [address] [facility] [address] [place] [address] RBC COUNT 5.43 X10E12/L Normal 4.10-5.70 [facility] [place] Comment on above: Performed By: #### P INR, 53140-2, 96687-5, CBCA, 96603-8, CMP, 4548-4, 6873-4 #### [facility] ([id number]) [address] [place] [address] #### HA1C #### [facility] ([id number]) [address] [place] [address] SEG NEUTROPHIL 40.2 % Normal [facility] Comment on above: Performed By: #### P INR, 72199-3, 97096-6, CBCA, 66971-7, CMP, 4548-4, 6873-4 #### [facility] ([id number]) [address] [place] [address] #### HA1C #### [facility] ([id number]) [address] [place] [address] WBC (Bld) [#/Vol] 3.4 10*3/uL Low 4.0-11.0 [facility] Comment on above: Performed By: #### P INR, 15621-9, 67764-5, CBCA, 83853-8, CMP, 4548-4, 6873-4 #### [facility] ([id number]) [address] [place] [address] 115[address] #### HA1C #### [facility] ([id number]) [address] [facility], [address] [place] [address] COMPREHENSIVE METABOLIC PANE [place] 10-29-2023 Albumin [Mass/Vol] 4.1 g/dL Normal 3.2-5.3 [facility] Comment on above: Performed By: #### P INR, 17351-6, 78732-4, CBCA, 84898-9, CMP, 4548-4, 6873-4 #### [facility] ([id number]) [address] [place] [address] #### HA1C #### [facility] ([id number]) [address], [address] [place] [address] ALP [Catalytic activity/Vol] 66 U/L Normal 39-130 [facility] Comment on above: Performed By: #### P INR, 36069-0, 30047-7, CBCA, 47558-5, CMP, 4548-4, 6873-4 #### [facility] ([id number]) [address] [place] [address] #### HA1C #### [facility] ([id number]) [address] [facility], [address] [place] [address] ALT [Catalytic activity/Vol] 27 U/L Normal 0-40 [facility] Comment on above: Performed By: #### P INR, 54776-1, 69365-4, CBCA, 66772-1, CMP, 4548-4, 6873-4 #### [facility] ([id number]) [address] [place] [address] #### HA1C #### [facility] ([id number]) [address], [address] [place] [address] Anion gap [Moles/Vol] 9 mmol/L Normal 5-15 [facility] Comment on above: Performed By: #### P INR, 87030-8, 83802-6, CBCA, 32747-2, CMP, 4548-4, 6873-4 #### [facility] ([id number]) [address] [place] [address] 265[address] #### HA1C #### [facility] ([id number]) [address], [address] [place] [address] AST [Catalytic activity/Vol] 19 U/L Normal 0-41 [facility] Comment on above: Performed By: #### P INR, 24704-2, 07109-8, CBCA, 78313-7, CMP, 4548-4, 6873-4 #### [facility] ([id number]) [address] [place] [address] 91813 #### HA1C #### [facility] ([id number]) [address], [address] [place] [address] Bilirubin [Mass/Vol] 0.7 mg/dL Normal 0.3-1.2 [facility] Comment on above: Performed By: #### P INR, 38166-6, 80212-9, CBCA, 94429-4, CMP, 4548-4, 6873-4 #### [facility] ([id number]) [address] [place] [address] 64890 #### HA1C #### [facility] ([id number]) [address], [address] [place] [address] Calcium [Mass/Vol] 9.1 mg/dL Normal 8.5-10.5 [facility] Comment on above: Performed By: #### P INR, 01001-6, 15180-0, CBCA, 09175-6, CMP, 4548-4, 6873-4 #### [facility] ([id number]) [address] [place] [address] 45569 #### HA1C #### [facility] ([id number]) [address], [address] [place] [address] Chloride [Moles/Vol] 94 mmol/L Low 98-109 [facility] Comment on above: Performed By: #### P INR, 52092-8, 86502-2, CBCA, 92420-5, CMP, 4548-4, 6873-4 #### [facility] ([id number]) [address] [place] [address] 23526 #### HA1C #### [facility] ([id number]) [address], [address] [place] [address] CO2 [Moles/Vol] 28 mmol/L Normal 22-32 [facility] Comment on above: Performed By: #### P INR, 98049-8, 82357-9, CBCA, 94012-0, CMP, 4548-4, 6873-4 #### [facility] ([id number]) [address] [place] [address] 61893 #### HA1C #### [facility] ([id number]) [address], [address] [place] [address] Creatinine [Mass/Vol] 0.78 mg/dL Normal 0.70-1.20 [facility] Comment on above: Result Comment: METH OD TRACEABLE TO IDMS STANDARD Performed By: #### P INR, 00819-0, 47675-8, CBCA, 08448-2, CMP, 4548-4, 6873-4 #### [facility] ([id number]) [address] [place] [address] 94887 #### HA1C #### [facility] ([id number]) [address], [address] [place] [address] eGFR (CKD-EPI) NON-RACE DEPENDENT >90 Normal >59 [facility] Comment on above: Result Comment: Reported eGFR is based on the CKD-EPI 2020 equation that does not use a race coefficient. Performed By: #### P INR, 13646-3, 22812-3, CBCA, 97767-3, CMP, 4548-4, 6873-4 #### [facility] ([id number]) [address] [place] [address] 53362 #### HA1C #### [facility] ([id number]) [address], [address] [place] [address] Glucose [Mass/Vol] 232 mg/dL High 65-99 [facility] Comment on above: Performed By: #### P INR, 79608-5, 74530-0, CBCA, 68191-4, CMP, 4548-4, 6873-4 #### [facility] ([id number]) [address] [place] [address] 54154 #### HA1C #### [facility] ([id number]) [address], [address] [place] [address] Potassium [Moles/Vol] 4.1 mmol/L Normal 3.5-5.0 [facility] Comment on above: Performed By: #### P INR, 31368-2, 50838-6, CBCA, 23110-9, CMP, 4548-4, 6873-4 #### [facility] ([id number]) [address] [place] [address] 91934 #### HA1C #### [facility] ([id number]) [address], [address] [place] [address] Protein [Mass/Vol] 7.1 g/dL Normal 6.0-8.0 [facility] Comment on above: Performed By: #### P INR, 73615-0, 63668-4, CBCA, 23000-4, CMP, 4548-4, 6873-4 #### [facility] ([id number]) [address] [place] [address] 55713 #### HA1C #### [facility] ([id number]) [address], [address] [place] [address] Sodium [Moles/Vol] 131 mmol/L Low 134-146 [facility] Comment on above: Performed By: #### P INR, 56649-0, 65583-2, CBCA, 77827-3, CMP, 4548-4, 6873-4 #### [facility] ([id number]) [address] [place] [address] 22306 #### HA1C #### [facility] ([id number]) [address], [address] [place] [address] Urea nitrogen [Mass/Vol] 14 mg/dL Normal 5-27 [facility] Comment on above: Performed By: #### P INR, 29106-9, 40223-1, CBCA, 60501-8, CMP, 4548-4, 6873-4 #### [facility] ([id number]) [address] [place] [address] 50016 #### HA1C #### [facility] ([id number]) [address], [address] [place] [address] MAGNESIUMon 10-29-2023 Magnesium [Mass/Vol] 1.9 mg/dL Normal 1.8-2.6 [facility] Comment on above: Performed By: #### P INR, 68133-1, 40590-9, CBCA, 46840-6, CMP, 4548-4, 6873-4 #### [facility] ([id number]) [address] [place] [address] 60603 #### HA1C #### [facility] ([id number]) [address], [address] [place] [address] CBC AND AUTO DIFFon 10-28-19 24 ABSOLUTE BASOPHIL 0.1 X10E9/L Normal 0.0-0.2 [facility] Comment on above: Performed By: #### P INR, 58486-3, 94429-0, CBCA, 29537-0, CMP, 4548-4, 6873-4 #### [facility] ([id number]) [address] [place] [address] 84382 #### HA1C #### [facility] ([id number]) [address], [address] [place] [address] ABSOLUTE NEUTROPHIL 1.5 X10E9/L Normal 1.5-6.6 [facility] Comment on above: Performed By: #### P INR, 55335-6, 68369-9, CBCA, 26521-6, CMP, 4548-4, 6873-4 #### [facility] ([id number]) [address] [place] [address] 44891 #### HA1C #### [facility] ([id number]) [address], [address] [place] [address] Basophils/100 WBC (Bld) 1.4 % Normal P [facility] Comment on above: Performed By: #### P INR, 32575-1, 40183-9, CBCA, 88895-1, CMP, 4548-4, 6873-4 #### [facility] ([id number]) [address] [place] [address] 46096 #### HA1C #### [facility] ([id number]) [address], [address] [place] [address] Eosinophils (Bld) [#/Vol] 0.1 10*3/uL Normal 0.0-0.4 [facility] Comment on above: Performed By: #### P INR, 96940-0, 81421-9, CBCA, 01336-8, CMP, 4548-4, 6873-4 #### [facility] ([id number]) [address] [place] [address] 11112 #### HA1C #### [facility] ([id number]) [address], [address] [place] [address] Eosinophils/100 WBC (Bld) 3.1 % Normal [facility] Comment on above: Performed By: #### P INR, 69197-2, 47782-8, CBCA, 91016-2, CMP, 4548-4, 6873-4 #### [facility] ([id number]) [address] [place] [address] 09914 #### HA1C #### [facility] ([id number]) [address], [address] [place] [address] Erythrocyte distribution width (RBC) [Ratio] 13.6 % Normal 11.5-15.0 [facility] Comment on above: Performed By: #### P INR, 97269-8, 52272-7, CBCA, 61284-7, CMP, 4548-4, 6873-4 #### [facility] ([id number]) [address] [place] [address] 56517 #### HA1C #### [facility] ([id number]) [address], [address] [place] [address] Hematocrit (Bld) [Volume fraction] 42.8 % Normal 39-49 [facility] Comment on above: Performed By: #### P INR, 44605-7, 79914-1, CBCA, 94602-7, CMP, 4548-4, 6873-4 #### [facility] ([id number]) [address] [place] [address] 42456 #### HA1C #### [facility] ([id number]) [address], [address] [place] [address] Hemoglobin (Bld) [Mass/Vol] 14.9 g/dL Normal 13.0-17.0 [facility] Comment on above: Performed By: #### P INR, 67281-9, 73447-7, CBCA, 74584-2, CMP, 4548-4, 6873-4 #### [facility] ([id number]) [address] [place] [address] 06666 #### HA1C #### [facility] ([id number]) [address], [address] [place] [address] Lymphocytes (Bld) [#/Vol] 1.8 10*3/uL Normal 1.0-3.5 [facility] Comment on above: Performed By: #### P INR, 36204-6, 42498-6, CBCA, 16871-9, CMP, 4548-4, 6873-4 #### [facility] ([id number]) [address] [place] [address] 47058 #### HA1C #### [facility] ([id number]) [address], [address] [place] [address] Lymphocytes/100 WBC (Bld) 46.0 % Normal [facility] Comment on above: Performed By: #### P INR, 56381-6, 09457-3, CBCA, 27219-8, CMP, 4548-4, 6873-4 #### [facility] ([id number]) [address] [place] [address] 03398 #### HA1C #### [facility] ([id number]) [address], [address] [place] [address] MCH (RBC) [Entitic mass] 29.6 pg Normal 27-34 [facility] Comment on above: Performed By: #### P INR, 39438-4, 03518-5, CBCA, 33007-8, CMP, 4548-4, 6873-4 #### [facility] ([id number]) [address] [place] [address] 30194 #### HA1C #### [facility] ([id number]) [address], [address] [place] [address] MCHC (RBC) [Mass/Vol] 34.7 g/dL Normal 32-36 [facility] Comment on above: Performed By: #### P INR, 12433-9, 30831-7, CBCA, 74873-9, CMP, 4548-4, 6873-4 #### [facility] ([id number]) [address] [place] [address] 76565 #### HA1C #### [facility] ([id number]) [address], [address] [place] [address] MCV (RBC) [Entitic vol] 86 fL Normal 80-100 P [facility] Comment on above: Performed By: #### P INR, 20634-7, 38632-4, CBCA, 43448-2, CMP, 4548-4, 6873-4 #### [facility] ([id number]) [address] [place] [address] 82414 #### HA1C #### [facility] ([id number]) [address], [address] [place] [address] Monocytes (Bld) [#/Vol] 0.4 10*3/uL Normal 0-0.9 [facility] Comment on above: Performed By: #### P INR, 67449-0, 72722-6, CBCA, 47510-1, CMP, 4548-4, 6873-4 #### [facility] ([id number]) [address] [place] [address] 51083 #### HA1C #### [facility] ([id number]) [address], [address] [place] [address] Monocytes/100 WBC (Bld) 10.4 % Normal P [facility] Comment on above: Performed By: #### P INR, 36183-2, 52898-8, CBCA, 90942-9, CMP, 4548-4, 6873-4 #### [facility] ([id number]) [address] [place] [address] #### HA1C #### [facility] ([id number]) [address], [address] [place] [address] Neutrophils/100 WBC (Bld) 39.1 % Normal [facility] Comment on above: Performed By: #### P INR, 11570-9, 76219-0, CBCA, 83757-1, CMP, 4548-4, 6873-4 #### [facility] ([id number]) [address] [place] [address] 20866 #### HA1C #### [facility] ([id number]) [address], [address] [place] [address] Platelet mean volume (Bld) [Entitic vol] 7.9 fL Normal 7-12 [facility] Comment on above: Performed By: #### P INR, 19231-3, 13082-4, CBCA, 37351-7, CMP, 4548-4, 6873-4 #### [facility] ([id number]) [address] [place] [address] 45909 #### HA1C #### [facility] ([id number]) [address], [address] [place] [address] Platelets (Bld) [#/Vol] 197 10*3/uL Normal 150-450 [facility] Comment on above: Performed By: #### P INR, 14098-4, 97505-3, CBCA, 34994-0, CMP, 4548-4, 6873-4 #### [facility] ([id number]) [address] [place] [address] 85317 #### HA1C #### [facility] ([id number]) [address], [address] [place] [address] RBC COUNT 5.01 X10E12/L Normal 4.10-5.70 [facility] Comment on above: Performed By: #### P INR, 73709-5, 25468-9, CBCA, 34262-8, CMP, 4548-4, 6873-4 #### [facility] ([id number]) [address] [place] [address] 91830 #### HA1C #### [facility] ([id number]) [address], [address] [place] [address] WBC (Bld) [#/Vol] 3.9 10*3/uL Low 4.0-11.0 [facility] Comment on above: Performed By: #### P INR, 81323-9, 05058-2, CBCA, 82294-3, CMP, 4548-4, 6873-4 #### [facility] ([id number]) [address] [place] [address] 36113 #### HA1C #### [facility] ([id number]) [address], [address] [place] [address] COMPREHENSIVE METABOLIC PANE [place] 10-28-2023 Albumin [Mass/Vol] 3.8 g/dL Normal 3.2-5.3 [facility] Comment on above: Performed By: #### P INR, 08977-8, 93638-2, CBCA, 06178-4, CMP, 4548-4, 6873-4 #### [facility] ([id number]) [address] [place] [address] 15398 #### HA1C #### [facility] ([id number]) [address], [address] [place] [address] ALP [Catalytic activity/Vol] 61 U/L Normal 39-130 [facility] Comment on above: Performed By: #### P INR, 23057-1, 31130-2, CBCA, 02006-3, CMP, 4548-4, 6873-4 #### [facility] ([id number]) [address] [place] [address] 74919 #### HA1C #### [facility] ([id number]) [address], [address] [place] [address] ALT [Catalytic activity/Vol] 22 U/L Normal 0-40 [facility] Comment on above: Performed By: #### P INR, 69151-5, 56197-9, CBCA, 32089-3, CMP, 4548-4, 6873-4 #### [facility] ([id number]) [address] [place] [address] 92236 #### HA1C #### [facility] ([id number]) [address], [address] [place] [address] Anion gap [Moles/Vol] 10 mmol/L Normal 5-15 [facility] Comment on above: Performed By: #### P INR, 50392-7, 74612-1, CBCA, 72740-2, CMP, 4548-4, 6873-4 #### [facility] ([id number]) [address] [place] [address] 14661 #### HA1C #### [facility] ([id number]) [address], [address] [place] [address] AST [Catalytic activity/Vol] 18 U/L Normal 0-41 [facility] Comment on above: Performed By: #### P INR, 87032-6, 72244-6, CBCA, 37032-2, CMP, 4548-4, 6873-4 #### [facility] ([id number]) [address] [place] [address] 58796 #### HA1C #### [facility] ([id number]) [address], [address] [place] [address] Bilirubin [Mass/Vol] 0.8 mg/dL Normal 0.3-1.2 [facility] Comment on above: Performed By: #### P INR, 73075-8, 24793-7, CBCA, 92566-5, CMP, 4548-4, 6873-4 #### [facility] ([id number]) [address] [place] [address] 40907 #### HA1C #### [facility] ([id number]) [address] [place] [address] Calcium [Mass/Vol] 8.5 mg/dL Normal 8.5-10.5 [facility] Comment on above: Performed By: #### P INR, 26131-7, 46719-4, CBCA, 08425-3, CMP, 4548-4, 6873-4 #### [facility] ([id number]) [address] [place] [address] 83108 #### HA1C #### [facility] ([id number]) [address], [address] [place] [address] Chloride [Moles/Vol] 94 mmol/L Low 98-109 [facility] Comment on above: Performed By: #### P INR, 13940-8, 82234-7, CBCA, 56116-6, CMP, 4548-4, 6873-4 #### [facility] ([id number]) [address] [place] [address] 77856 #### HA1C #### [facility] ([id number]) [address], [address] [place] [address] CO2 [Moles/Vol] 26 mmol/L Normal 22-32 [facility] Comment on above: Performed By: #### P INR, 23466-0, 26253-7, CBCA, 81862-6, CMP, 4548-4, 6873-4 #### [facility] ([id number]) [address] [place] [address] 51616 #### HA1C #### [facility] ([id number]) [address], [address] [place] [address] Creatinine [Mass/Vol] 0.79 mg/dL Normal 0.70-1.20 [facility] Comment on above: Result Comment: METH OD TRACEABLE TO IDMS STANDARD Performed By: #### P INR, 44667-8, 20322-4, CBCA, 71173-3, CMP, 4548-4, 6873-4 #### [facility] ([id number]) [address] [place] [address] 15538 #### HA1C #### [facility] ([id number]) [address], [facility] [address] [place] [address] eGFR (CKD-EPI) NON-RACE DEPENDENT >90 Normal >59 [facility] Comment on above: Result Comment: Reported eGFR is based on the CKD-EPI 2020 equation that does not use a race coefficient. Performed By: #### P INR, 70748-4, 80978-6, CBCA, 51747-4, CMP, 4548-4, 6873-4 #### [facility] ([id number]) [address] [place] [address] 74802 #### HA1C #### [facility] ([id number]) [address], [address] [place] [address] Glucose [Mass/Vol] 228 mg/dL High 65-99 [facility] Comment on above: Performed By: #### P INR, 28887-6, 94191-2, CBCA, 86076-6, CMP, 4548-4, 6873-4 #### [facility] ([id number]) [address] [place] [address] 64894 #### HA1C #### [facility] ([id number]) [address], [address] [place] [address] Potassium [Moles/Vol] 3.7 mmol/L Normal 3.5-5.0 [facility] Comment on above: Performed By: #### P INR, 70345-4, 26286-2, CBCA, 21898-0, CMP, 4548-4, 6873-4 #### [facility] ([id number]) [address] [place] [address] 42460 #### HA1C #### [facility] ([id number]) [address], [address] [place] [address] Protein [Mass/Vol] 6.3 g/dL Normal 6.0-8.0 [facility] Comment on above: Performed By: #### P INR, 32502-0, 10671-1, CBCA, 48159-5, CMP, 4548-4, 6873-4 #### [facility] ([id number]) [address] [place] [address] 54205 #### HA1C #### [facility] ([id number]) [address], [address] [place] [address] Sodium [Moles/Vol] 130 mmol/L Low 134-146 [facility] Comment on above: Performed By: #### P INR, 32374-6, 27971-8, CBCA, 91522-2, CMP, 4548-4, 6873-4 #### [facility] ([id number]) [address] [place] [address] 82344 #### HA1C #### [facility] ([id number]) [address], [address] [place] [address] Urea nitrogen [Mass/Vol] 16 mg/dL Normal 5-27 [facility] Comment on above: Performed By: #### P INR, 73368-5, 66986-9, CBCA, 66872-3, CMP, 4548-4, 6873-4 #### [facility] ([id number]) [address] [place] [address] 87308 #### HA1C #### [facility] ([id number]) [address], [address] [place] [address] CT CTA CAROTIDon 10-28-2023 CT CTA CAROTID [...] Giles MD on 10/28/2023 12:26 PM Normal [facility] CT CTA HEADon 10-28-2023 CT CTA HEAD [...] Mayes MD on 10/28/2023 12:38 PM Normal [facility] Glucose Glucometer (BldC) [M ass/Vol]on 10-28-2023 Glucose [Mass/Vol] 226 mg/dL High 65-99 [facility] Glucose [Mass/Vol] 279 mg/dL High 65-99 [facility] Glucose [Mass/Vol] 248 mg/dL High 65-99 [facility] Glucose [Mass/Vol] 221 mg/dL High 65-99 [facility] Lipid 1996 panelon Cholesterol [Mass/Vol] 219 mg/dL High 150-200 [facility] Comment on above: Performed By: #### P INR, 54441-7, 88893-0, CBCA, 97583-2, CMP, 4548-4, 6873-4 #### [facility] ([id number]) [address] [place] [address] 20902 #### HA1C #### [facility] ([id number]) [address], [address] [place] [address] Cholesterol in HDL [Mass/Vol] 43 mg/dL Normal >39 [facility] Comment on above: Result Comment: HDL <40 mg/dL - High Risk HDL > or = 40mg/dL- Desirable HDL >60 mg/dL - Negative Risk Performed By: #### P INR, 28956-5, 98193-6, CBCA, 53419-3, CMP, 4548-4, 6873-4 #### [facility] ([id number]) [address] [place] [address] #### HA1C #### [facility] ([id number]) [address], [address] [place] [address] Cholesterol in LDL [Mass/Vol] 143 mg/dL High <130 [facility] Comment on above: Result Comment: LDL <100 mg/dL - Desirable LDL >160 mg/dL - High Risk Performed By: #### P INR, 85432-9, 97975-5, CBCA, 18925-1, CMP, 4548-4, 6873-4 #### [facility] ([id number]) [address] [place] [address] #### HA1C #### [facility] ([id number]) [address], [address] [place] [address] Cholesterol in VLDL [Mass/Vol] 33 mg/dL High 0-30 [facility] Comment on above: Performed By: #### P INR, 30628-5, 81516-3, CBCA, 07637-6, CMP, 4548-4, 6873-4 #### [facility] ([id number]) [address] [place] [address] #### HA1C #### [facility] ([id number]) [address], [address] [place] [address] CHOLESTEROL:HDL 5.1 High 1.0-5.0 [facility] Comment on above: Performed By: #### P INR, 70920-1, 48125-4, CBCA, 15602-3, CMP, 4548-4, 6873-4 #### [facility] ([id number]) [address] [place] [address] #### HA1C #### [facility] ([id number]) [address], [address] [place] [address] Triglyceride [Mass/Vol] 164 mg/dL High 27-150 P [facility] Comment on above: Performed By: #### P INR, 55070-1, 16148-4, CBCA, 03928-0, CMP, 4548-4, 6873-4 #### [facility] ([id number]) [address] [place] [address] #### HA1C #### [facility] ([id number]) [address], [address] [place] [address] MAGNESIUMon 10-28-2023 Magnesium [Mass/Vol] 1.8 mg/dL Normal 1.8-2.6 [facility] Comment on above: Performed By: #### P INR, 51223-3, 40310-9, CBCA, 91352-4, CMP, 4548-4, 6873-4 #### [facility] ([id number]) [address] [place] [address] #### HA1C #### [facility] ([id number]) [address], [address] [place] [address] MR BRAIN WO CONTon 4 MR BRAIN [...] Anderson MD on 10/28/2023 10:39 AM Normal [facility] CBC AND AUTO DIFFon 10-27-19 24 ABSOLUTE BASOPHIL 0.0 X10E9/L Normal 0.0-0.2 [facility] Comment on above: Performed By: #### P INR, 12560-9, 58969-5, CBCA, 18584-0, CMP, 4548-4, 6873-4 #### [facility] ([id number]) [address] [place] [address] #### HA1C #### [facility] ([id number]) [address], [address] [place] [address] ABSOLUTE NEUTROPHIL 1.8 X10E9/L Normal 1.5-6.6 [facility] Comment on above: Performed By: #### P INR, 75139-4, 89923-7, CBCA, 59083-2, CMP, 4548-4, 6873-4 #### [facility] ([id number]) [address] [place] [address] 00123 #### HA1C #### [facility] ([id number]) [address], [address] [place] [address] Basophils/100 WBC (Bld) 1.2 % Normal P [facility] Comment on above: Performed By: #### P INR, 93980-6, 29175-1, CBCA, 59392-7, CMP, 4548-4, 6873-4 #### [facility] ([id number]) [address] [place] [address] 81281 #### HA1C #### [facility] ([id number]) [address], [facility] [address] [place] [address] Eosinophils (Bld) [#/Vol] 0.1 10*3/uL Normal 0.0-0.4 [facility] Comment on above: Performed By: #### P INR, 43918-4, 20593-2, CBCA, 31464-6, CMP, 4548-4, 6873-4 #### [facility] ([id number]) [address] [place] [address] 97134 #### HA1C #### [facility] ([id number]) [address] [address] Eosinophils/100 WBC (Bld) 2.5 % Normal [facility] Comment on above: Performed By: #### P INR, 46666-7, 22254-1, CBCA, 15311-2, CMP, 4548-4, 6873-4 #### [facility] ([id number]) [address] [place] [address] 45873 #### HA1C #### [facility] ([id number]) [address] [address] Erythrocyte distribution width (RBC) [Ratio] 13.5 % Normal 11.5-15.0 [facility] Comment on above: Performed By: #### P INR, 64055-4, 57542-7, CBCA, 71949-7, CMP, 4548-4, 6873-4 #### [facility] ([id number]) [address] [place] [address] 71428 #### HA1C #### [facility] ([id number]) [address], [address] [place] [address] Hematocrit (Bld) [Volume fraction] 43.3 % Normal 39-49 [facility] Comment on above: Performed By: #### P INR, 22731-9, 61524-7, CBCA, 53764-6, CMP, 4548-4, 6873-4 #### [facility] ([id number]) [address] [place] [address] 27738 #### HA1C #### [facility] ([id number]) [address], [address] [place] [address] Hemoglobin (Bld) [Mass/Vol] 14.9 g/dL Normal 13.0-17.0 [facility] Comment on above: Performed By: #### P INR, 55235-0, 30036-2, CBCA, 41087-8, CMP, 4548-4, 6873-4 #### [facility] ([id number]) [address] [place] [address] 84870 #### HA1C #### [facility] ([id number]) [address], [address] [place] [address] Lymphocytes (Bld) [#/Vol] 1.3 10*3/uL Normal 1.0-3.5 [facility] Comment on above: Performed By: #### P INR, 46566-1, 64601-7, CBCA, 68486-8, CMP, 4548-4, 6873-4 #### [facility] ([id number]) [address] [place] [address] 66356 #### HA1C #### [facility] ([id number]) [address], [address] [place] [address] Lymphocytes/100 WBC (Bld) 36.9 % Normal [facility] Comment on above: Performed By: #### P INR, 26798-4, 22979-3, CBCA, 99305-7, CMP, 4548-4, 6873-4 #### [facility] ([id number]) [address] [place] [address] 59841 #### HA1C #### [facility] ([id number]) [address], [address] [place] [address] MCH (RBC) [Entitic mass] 29.3 pg Normal 27-34 [facility] Comment on above: Performed By: #### P INR, 84197-7, 21609-2, CBCA, 46677-1, CMP, 4548-4, 6873-4 #### [facility] ([id number]) [address] [place] [address] 68861 #### HA1C #### [facility] ([id number]) [address], [address] [place] [address] MCHC (RBC) [Mass/Vol] 34.4 g/dL Normal 32-36 [facility] Comment on above: Performed By: #### P INR, 41740-9, 96196-4, CBCA, 19651-3, CMP, 4548-4, 6873-4 #### [facility] ([id number]) [address] [place] [address] 96336 #### HA1C #### [facility] ([id number]) [address], [address] [place] [address] MCV (RBC) [Entitic vol] 85 fL Normal 80-100 [facility] Comment on above: Performed By: #### P INR, 73032-4, 45299-4, CBCA, 70126-4, CMP, 4548-4, 6873-4 #### [facility] ([id number]) [address] [place] [address] 24864 #### HA1C #### [facility] ([id number]) [address], [address] [place] [address] Monocytes (Bld) [#/Vol] 0.3 10*3/uL Normal 0-0.9 [facility] Comment on above: Performed By: #### P INR, 07067-8, 16525-0, CBCA, 40519-8, CMP, 4548-4, 6873-4 #### [facility] ([id number]) [address] [place] [address] 37481 #### HA1C #### [facility] ([id number]) [address], [address] [place] [address] Monocytes/100 WBC (Bld) 8.4 % Normal [facility] Comment on above: Performed By: #### P INR, 79894-7, 11921-3, CBCA, 24363-2, CMP, 4548-4, 6873-4 #### [facility] ([id number]) [address] [place] [address] 97852 #### HA1C #### [facility] ([id number]) [address], [address] [place] [address] Neutrophils/100 WBC (Bld) 51.0 % Normal [facility] Comment on above: Performed By: #### P INR, 45305-3, 80335-8, CBCA, 55478-7, CMP, 4548-4, 6873-4 #### [facility] ([id number]) [address] [place] [address] 36225 #### HA1C #### [facility] ([id number]) [address], [address] [place] [address] Platelet mean volume (Bld) [Entitic vol] 7.7 fL Normal 7-12 [facility] Comment on above: Performed By: #### P INR, 79803-3, 56183-2, CBCA, 00583-5, CMP, 4548-4, 6873-4 #### [facility] ([id number]) [address] [place] [address] 14553 #### HA1C #### [facility] ([id number]) [address], [address] [place] [address] Platelets (Bld) [#/Vol] 192 10*3/uL Normal 150-450 [facility] Comment on above: Performed By: #### P INR, 46168-9, 30002-2, CBCA, 55719-0, CMP, 4548-4, 6873-4 #### [facility] ([id number]) [address] [place] [address] 47375 #### HA1C #### [facility] ([id number]) [address], [address] [place] [address] RBC COUNT 5.08 X10E12/L Normal 4.10-5.70 [facility] Comment on above: Performed By: #### P INR, 30962-2, 02307-5, CBCA, 04681-0, CMP, 4548-4, 6873-4 #### [facility] ([id number]) [address] [place] [address] 34857 #### HA1C #### [facility] ([id number]) [address], [address] [place] [address] WBC (Bld) [#/Vol] 3.6 10*3/uL Low 4.0-11.0 [facility] Comment on above: Performed By: #### P INR, 61102-2, 64539-2, CBCA, 53323-8, CMP, 4548-4, 6873-4 #### [facility] ([id number]) [address] [place] [address] 26652 #### HA1C #### [facility] ([id number]) [address], [address] [place] [address] COMPREHENSIVE METABOLIC PANE [place] 10-27-2023 Albumin [Mass/Vol] 4.0 g/dL Normal 3.2-5.3 [facility] Comment on above: Performed By: #### P INR, 87489-3, 12386-4, CBCA, 73187-4, CMP, 4548-4, 6873-4 #### [facility] ([id number]) [address] [place] [address] 39677 #### HA1C #### [facility] ([id number]) [address] [place] [address] ALP [Catalytic activity/Vol] 65 U/L Normal 39-130 [facility] Comment on above: Performed By: #### P INR, 89373-2, 73470-2, CBCA, 71937-2, CMP, 4548-4, 6873-4 #### [facility] ([id number]) [address] [place] [address] 17090 #### HA1C #### [facility] ([id number]) [address], [address] [place] [address] ALT [Catalytic activity/Vol] 21 U/L Normal 0-40 [facility] Comment on above: Performed By: #### P INR, 92677-3, 82446-3, CBCA, 69047-2, CMP, 4548-4, 6873-4 #### [facility] ([id number]) [address] [place] [address] 36063 #### HA1C #### [facility] ([id number]) [address], [address] [place] [address] Anion gap [Moles/Vol] 4 mmol/L Low 5-15 [facility] Comment on above: Performed By: #### P INR, 95783-3, 02834-5, CBCA, 58219-2, CMP, 4548-4, 6873-4 #### [facility] ([id number]) [address] [place] [address] 49940 #### HA1C #### [facility] ([id number]) [address], [address] [place] [address] AST [Catalytic activity/Vol] 17 U/L Normal 0-41 [facility] Comment on above: Performed By: #### P INR, 96668-7, 02000-8, CBCA, 45379-0, CMP, 4548-4, 6873-4 #### [facility] ([id number]) [address] [place] [address] 21782 #### HA1C #### [facility] ([id number]) [address], [address] [place] [address] Bilirubin [Mass/Vol] 1.1 mg/dL Normal 0.3-1.2 [facility] Comment on above: Performed By: #### P INR, 92431-1, 46918-9, CBCA, 52011-1, CMP, 4548-4, 6873-4 #### [facility] ([id number]) [address] [place] [address] 45810 #### HA1C #### [facility] ([id number]) [address], [address] [place] [address] Calcium [Mass/Vol] 8.3 mg/dL Low 8.5-10.5 [facility] Comment on above: Performed By: #### P INR, 04816-2, 24907-0, CBCA, 32439-8, CMP, 4548-4, 6873-4 #### [facility] ([id number]) [address] [place] [address] 25422 #### HA1C #### [facility] ([id number]) [address], [address] [place] [address] Chloride [Moles/Vol] 101 mmol/L Normal 98-109 [facility] Comment on above: Performed By: #### P INR, 04596-2, 84888-6, CBCA, 53850-9, CMP, 4548-4, 6873-4 #### [facility] ([id number]) [address] [place] [address] 42303 #### HA1C #### [facility] ([id number]) [address], [address] [place] [address] CO2 [Moles/Vol] 24 mmol/L Normal 22-32 [facility] Comment on above: Performed By: #### P INR, 80890-8, 09671-5, CBCA, 65595-7, CMP, 4548-4, 6873-4 #### [facility] ([id number]) [address] [place] [address] 44411 #### HA1C #### [facility] ([id number]) [address] [place] [address] Creatinine [Mass/Vol] 0.75 mg/dL Normal 0.70-1.20 [facility] Comment on above: Result Comment: METH OD TRACEABLE TO IDMS STANDARD Performed By: #### P INR, 88969-2, 46311-6, CBCA, 30690-9, CMP, 4548-4, 6873-4 #### [facility] ([id number]) [address] [place] [address] 07881 #### HA1C #### [facility] ([id number]) [address], [address] [place] [address] eGFR (CKD-EPI) NON-RACE DEPENDENT >90 Normal >59 [facility] Comment on above: Result Comment: Reported eGFR is based on the CKD-EPI 2020 equation that does not use a race coefficient. Performed By: #### P INR, 14513-5, 58378-4, CBCA, 87606-4, CMP, 4548-4, 6873-4 #### [facility] ([id number]) [address] [place] [address] 49882 #### HA1C #### [facility] ([id number]) [address], [address] [place] [address] Glucose [Mass/Vol] 272 mg/dL High 65-99 [facility] Comment on above: Performed By: #### P INR, 13441-7, 88109-1, CBCA, 62755-4, CMP, 4548-4, 6873-4 #### [facility] ([id number]) [address] [place] [address] 88293 #### HA1C #### [facility] ([id number]) [address], [address] [place] [address] Potassium [Moles/Vol] 4.1 mmol/L Normal 3.5-5.0 [facility] Comment on above: Performed By: #### P INR, 07434-4, 71276-8, CBCA, 00311-0, CMP, 4548-4, 6873-4 #### [facility] ([id number]) [address] [place] [address] 96970 #### HA1C #### [facility] ([id number]) [address], [address] [place] [address] Protein [Mass/Vol] 6.4 g/dL Normal 6.0-8.0 [facility] Comment on above: Performed By: #### P INR, 19872-9, 64834-6, CBCA, 30738-9, CMP, 4548-4, 6873-4 #### [facility] ([id number]) [address] [place] [address] 08072 #### HA1C #### [facility] ([id number]) [address], [address] [place] [address] Sodium [Moles/Vol] 129 mmol/L Low 134-146 [facility] Comment on above: Performed By: #### P INR, 56348-8, 76825-1, CBCA, 16709-6, CMP, 4548-4, 6873-4 #### [facility] ([id number]) [address] [place] [address] 61742 #### HA1C #### [facility] ([id number]) [address], [address] [place] [address] Urea nitrogen [Mass/Vol] 20 mg/dL Normal 5-27 [facility] Comment on above: Performed By: #### P INR, 61002-6, 81139-6, CBCA, 45789-5, CMP, 4548-4, 6873-4 #### [facility] ([id number]) [address] [place] [address] 99629 #### HA1C #### [facility] ([id number]) [address], [address] [place] [address] Glucose Glucometer (dC) [M ass/Vol]on 10-27-2023 Glucose [Mass/Vol] 293 mg/dL High 65-99 [facility] Glucose [Mass/Vol] 311 mg/dL High 65-99 [facility] Glucose [Mass/Vol] 270 mg/dL High 65-99 [facility] Glucose [Mass/Vol] 280 mg/dL High 65-99 [facility] Glucose [Mass/Vol] 260 mg/dL High 65-99 [facility] MAGNESIUMon 10-27-2023 Magnesium [Mass/Vol] 2.2 mg/dL Normal 1.8-2.6 [facility] Comment on above: Performed By: #### P INR, 28190-9, 49719-4, CBCA, 87778-0, CMP, 4548-4, 6873-4 #### [facility] ([id number]) [address] [place] [address] 38071 #### HA1C #### [facility] ([id number]) [address], [address] [place] [address] Beta hydroxybutyrate [Moles/ Vol]on 10-26-2023 BetaHydroxybutyrate 1.69 mmol/L High 0.02-0.27 [facility] Comment on above: Performed By: #### P INR, 72878-2, 64407-2, CBCA, 00172-6, CMP, 4548-4, 6873-4 #### [facility] ([id number]) [address] [place] [address] 80897 #### HA1C #### [facility] ([id number]) [address], [address] [place] [address] CBC AND AUTO DIFFon 10-26-20 ABSOLUTE BASOPHIL 0.0 X10E9/L Normal 0.0-0.2 [facility] Comment on above: Performed By: #### P INR, 23423-2, 16958-1, CBCA, 33589-9, CMP, 4548-4, 6873-4 #### [facility] ([id number]) [address] [place] [address] 42379 #### HA1C #### [facility] ([id number]) [address], [address] [place] [address] ABSOLUTE NEUTROPHIL 2.5 X10E9/L Normal 1.5-6.6 [facility] Comment on above: Performed By: #### P INR, 91081-4, 25814-5, CBCA, 30420-7, CMP, 4548-4, 6873-4 #### [facility] ([id number]) [address] [place] [address] 65245 #### HA1C #### [facility] ([id number]) [address], [address] [place] [address] Basophils/100 WBC (Bld) 1.0 % Normal P [facility] Comment on above: Performed By: #### P INR, 32948-8, 68543-8, CBCA, 67385-2, CMP, 4548-4, 6873-4 #### [facility] ([id number]) [address] [place] [address] 78640 #### HA1C #### [facility] ([id number]) [address] [facility], [address] [place] [address] Eosinophils (Bld) [#/Vol] 0.1 10*3/uL Normal 0.0-0.4 [facility] Comment on above: Performed By: #### P INR, 51353-4, 77489-0, CBCA, 36076-7, CMP, 4548-4, 6873-4 #### [facility] ([id number]) [address] [place] [address] 65207 #### HA1C #### [facility] ([id number]) [address] [facility] [facility] [place] [address] Eosinophils/100 WBC (Bld) 1.2 % Normal [facility] Comment on above: Performed By: #### P INR, 37623-5, 30886-8, CBCA, 42187-0, CMP, 4548-4, 6873-4 #### [facility] ([id number]) [address] [place] [address] 33187 #### HA1C #### [facility] ([id number]) [address], [address] [place] [address] Erythrocyte distribution width (RBC) [Ratio] 13.4 % Normal 11.5-15.0 [facility] Comment on above: Performed By: #### P INR, 02342-0, 69292-8, CBCA, 81132-5, CMP, 4548-4, 6873-4 #### [facility] ([id number]) [address] [place] [address] 41846 #### HA1C #### [facility] ([id number]) [address], [address] [place] [address] Hematocrit (Bld) [Volume fraction] 46.5 % Normal 39-49 [facility] Comment on above: Performed By: #### P INR, 34164-3, 40031-8, CBCA, 15858-8, CMP, 4548-4, 6873-4 #### [facility] ([id number]) [address] [place] [address] 67091 #### HA1C #### [facility] ([id number]) [address], [address] [place] [address] Hemoglobin (Bld) [Mass/Vol] 16.0 g/dL Normal 13.0-17.0 [facility] Comment on above: Performed By: #### P INR, 81749-5, 37983-3, CBCA, 46039-8, CMP, 4548-4, 6873-4 #### [facility] ([id number]) [address] [place] [address] 50931 #### HA1C #### [facility] ([id number]) [address], [address] [place] [address] Lymphocytes (Bld) [#/Vol] 1.4 10*3/uL Normal 1.0-3.5 [facility] Comment on above: Performed By: #### P INR, 85476-6, 01421-4, CBCA, 16581-2, CMP, 4548-4, 6873-4 #### [facility] ([id number]) [address] [place] [address] 16556 #### HA1C #### [facility] ([id number]) [address], [address] [place] [address] Lymphocytes/100 WBC (Bld) 31.7 % Normal [facility] Comment on above: Performed By: #### P INR, 06354-7, 88497-5, CBCA, 50621-4, CMP, 4548-4, 6873-4 #### [facility] ([id number]) [address] [place] [address] 67380 #### HA1C #### [facility] ([id number]) [address], [address] [place] [address] MCH (RBC) [Entitic mass] 29.6 pg Normal 27-34 [facility] Comment on above: Performed By: #### P INR, 29268-6, 60442-5, CBCA, 64327-0, CMP, 4548-4, 6873-4 #### [facility] ([id number]) [address] [place] [address] 73572 #### HA1C #### [facility] ([id number]) [address], [address] [place] [address] MCHC (RBC) [Mass/Vol] 34.4 g/dL Normal 32-36 [facility] Comment on above: Performed By: #### P INR, 52344-1, 51325-0, CBCA, 41356-1, CMP, 4548-4, 6873-4 #### [facility] ([id number]) [address] [place] [address] 41414 #### HA1C #### [facility] ([id number]) [address], [address] [place] [address] MCV (RBC) [Entitic vol] 86 fL Normal 80-100 [facility] Comment on above: Performed By: #### P INR, 35176-1, 22193-3, CBCA, 67095-5, CMP, 4548-4, 6873-4 #### [facility] ([id number]) [address] [place] [address] 90954 #### HA1C #### [facility] ([id number]) [address], [address] [place] [address] Monocytes (Bld) [#/Vol] 0.3 10*3/uL Normal 0-0.9 [facility] Comment on above: Performed By: #### P INR, 99133-9, 31426-6, CBCA, 60971-8, CMP, 4548-4, 6873-4 #### [facility] ([id number]) [address] [place] [address] 96806 #### HA1C #### [facility] ([id number]) [address], [address] [place] [address] Monocytes/100 WBC (Bld) 7.3 % Normal [facility] Comment on above: Performed By: #### P INR, 24878-5, 13373-6, CBCA, 67471-1, CMP, 4548-4, 6873-4 #### [facility] ([id number]) [address] [place] [address] #### HA1C #### [facility] ([id number]) [address], [address] [place] [address] Neutrophils/100 WBC (Bld) 58.8 % Normal [facility] Comment on above: Performed By: #### P INR, 36808-7, 71120-4, CBCA, 30745-6, CMP, 4548-4, 6873-4 #### [facility] ([id number]) [address] [place] [address] #### HA1C #### [facility] ([id number]) [address], [address] [place] [address] Platelet mean volume (Bld) [Entitic vol] 8.0 fL Normal 7-12 [facility] Comment on above: Performed By: #### P INR, 08907-5, 21630-3, CBCA, 97155-3, CMP, 4548-4, 6873-4 #### [facility] ([id number]) [address] [place] [address] #### HA1C #### [facility] ([id number]) [address], [address] [place] [address] Platelets (Bld) [#/Vol] 219 10*3/uL Normal 150-450 [facility] Comment on above: Performed By: #### P INR, 44655-1, 08224-1, CBCA, 94195-6, CMP, 4548-4, 6873-4 #### [facility] ([id number]) [address] [place] [address] #### HA1C #### [facility] ([id number]) [address], [address] [place] [address] RBC COUNT 5.41 X10E12/L Normal 4.10-5.70 [facility] Comment on above: Performed By: #### P INR, 72619-2, 39830-6, CBCA, 53691-5, CMP, 4548-4, 6873-4 #### [facility] ([id number]) [address] [place] [address] #### HA1C #### [facility] ([id number]) [address], [address] [place] [address] WBC (Bld) [#/Vol] 4.3 10*3/uL Normal 4.0-11.0 [facility] Comment on above: Performed By: #### P INR, 00561-9, 77691-1, CBCA, 81007-3, CMP, 4548-4, 6873-4 #### [facility] ([id number]) [address] [place] [address] #### HA1C #### [facility] ([id number]) [address] [place] [address], [address] [place] [address] COMPREHENSIVE METABOLIC PANE [facility] [place] 10-26-2023 Albumin [Mass/Vol] 4.3 g/dL Normal 3.2-5.3 [facility] Comment on above: Performed By: #### P INR, 90703-9, 10239-6, CBCA, 89165-5, CMP, 4548-4, 6873-4 #### [facility] ([id number]) [address] [place] [address] #### HA1C #### [facility] ([id number]) [address] [place] [address], [address] [place] [address] ALP [Catalytic activity/Vol] 73 U/L Normal 39-130 [facility] Comment on above: Performed By: #### P INR, 49426-0, 46717-0, CBCA, 31112-7, CMP, 4548-4, 6873-4 #### [facility] ([id number]) [address] [place] [address] #### HA1C #### [facility] ([id number]) [address] [place] [address], [address] [place] [address] ALT [Catalytic activity/Vol] 25 U/L Normal 0-40 [facility] Comment on above: Performed By: #### P INR, 81965-0, 82772-1, CBCA, 14076-3, CMP, 4548-4, 6873-4 #### [facility] ([id number]) [address] [place] [address] 38143 #### HA1C #### [facility] ([id number]) [address], [address] [place] [address] Anion gap [Moles/Vol] 10 mmol/L Normal 5-15 [facility] Comment on above: Performed By: #### P INR, 59183-1, 96844-1, CBCA, 11189-3, CMP, 4548-4, 6873-4 #### [facility] ([id number]) [address] [place] [address] 98688 #### HA1C #### [facility] ([id number]) [address], [address] [place] [address] AST [Catalytic activity/Vol] 19 U/L Normal 0-41 [facility] Comment on above: Performed By: #### P INR, 15194-0, 02324-2, CBCA, 90510-1, CMP, 4548-4, 6873-4 #### [facility] ([id number]) [address] [place] [address] 11083 #### HA1C #### [facility] ([id number]) [address], [address] [place] [address] Bilirubin [Mass/Vol] 0.8 mg/dL Normal 0.3-1.2 [facility] Comment on above: Performed By: #### P INR, 27505-4, 86273-6, CBCA, 69147-5, CMP, 4548-4, 6873-4 #### [facility] ([id number]) [address] [place] [address] 72113 #### HA1C #### [facility] ([id number]) [address], [address] [place] [address] Calcium [Mass/Vol] 9.3 mg/dL Normal 8.5-10.5 [facility] Comment on above: Performed By: #### P INR, 72849-3, 21295-3, CBCA, 07578-1, CMP, 4548-4, 6873-4 #### [facility] ([id number]) [address] [place] [address] 46313 #### HA1C #### [facility] ([id number]) [address], [address] [place] [address] Chloride [Moles/Vol] 94 mmol/L Low 98-109 [facility] Comment on above: Performed By: #### P INR, 27591-9, 31204-6, CBCA, 99550-5, CMP, 4548-4, 6873-4 #### [facility] ([id number]) [address] [place] [address] 87929 #### HA1C #### [facility] ([id number]) [address], [address] [place] [address] CO2 [Moles/Vol] 26 mmol/L Normal 22-32 [facility] Comment on above: Performed By: #### P INR, 93808-2, 41958-0, CBCA, 73043-0, CMP, 4548-4, 6873-4 #### [facility] ([id number]) [address] [place] [address] 52608 #### HA1C #### [facility] ([id number]) [address], [address] [place] [address] Creatinine [Mass/Vol] 1.06 mg/dL Normal 0.70-1.20 [facility] Comment on above: Result Comment: METH OD TRACEABLE TO IDMS STANDARD Performed By: #### P INR, 40600-8, 51229-1, CBCA, 58467-0, CMP, 4548-4, 6873-4 #### [facility] ([id number]) [address] [place] [address] 20803 #### HA1C #### [facility] ([id number]) [address] [facility], [facility] [address] [place] [address] GFR/1.73 sq M.predicted among non-blacks MDRD (S/P/Bld) [Vol rate/Area] 75 mL/min/{1.73_m2} Normal >59 [facility] Comment on above: Result Comment: Reported eGFR is based on the CKD-EPI 2020 equation that does not use a race coefficient. Performed By: #### P INR, 07193-9, 86843-5, CBCA, 14434-7, CMP, 4548-4, 6873-4 #### [facility] ([id number]) [address] [place] [address] 76225 #### HA1C #### [facility] ([id number]) [address] [facility], [address] [place] [address] Glucose [Mass/Vol] 453 mg/dL Critically high 65-99 [facility] Comment on above: Performed By: #### P INR, 79986-3, 35310-6, CBCA, 57453-8, CMP, 4548-4, 6873-4 #### [facility] ([id number]) [address] [place] [address] 72696 #### HA1C #### [facility] ([id number]) [address] [facility], [address] [place] [address] Potassium [Moles/Vol] 4.5 mmol/L Normal 3.5-5.0 [facility] Comment on above: Performed By: #### P INR, 59629-2, 10336-6, CBCA, 44469-5, CMP, 4548-4, 6873-4 #### [facility] ([id number]) [address] [place] [address] 25244 #### HA1C #### [facility] ([id number]) [address] [facility], [address] [place] [address] Protein [Mass/Vol] 7.2 g/dL Normal 6.0-8.0 [facility] Comment on above: Performed By: #### P INR, 83352-1, 35294-1, CBCA, 71720-3, CMP, 4548-4, 6873-4 #### [facility] ([id number]) [address] [place] [address] 49401 #### HA1C #### [facility] ([id number]) [address] [place] [address], [address] [place] [address] Sodium [Moles/Vol] 130 mmol/L Low 134-146 [facility] Comment on above: Performed By: #### P INR, 31021-9, 71961-1, CBCA, 81802-0, CMP, 4548-4, 6873-4 #### [facility] ([id number]) [address] [place] [address] 04684 #### HA1C #### [facility] ([id number]) [address] [place] [address], [address] [place] [address] Urea nitrogen [Mass/Vol] 29 mg/dL High 5-27 [facility] Comment on above: Performed By: #### P INR, 38009-1, 32107-2, CBCA, 23208-4, CMP, 4548-4, 6873-4 #### [facility] ([id number]) [address] [place] [address] 59825 #### HA1C #### [facility] ([id number]) [address] [place] [address], [address] [place] [address] CT BRAIN WO CONTon 3 CT BRAIN [...] Denney MD on 10/26/2023 6:42 PM Normal [facility] DRUG SCREEN, URINEon 023 AMPHETAMINE/METHAMP Negative Normal NEG [facility] Comment on above: Result Comment: AMPH /METH screening cut off = 1000 ng/mL Performed By: #### P INR, 91954-7, 12477-6, CBCA, 57106-8, CMP, 4548-4, 6873-4 #### [facility] ([id number]) [address] [place] [address], [place] [address] #### HA1C #### [facility] ([id number]) [address] [facility], [address] [place] [address] BARBITURATES Negative Normal NEG [facility] Comment on above: Result Comment: Elsie iturates screening cut off value = 200 ng/mL Performed By: #### P INR, 01187-1, 26871-7, CBCA, 57048-2, CMP, 4548-4, 6873-4 #### [facility] ([id number]) [address] [place] [address] 83652 #### HA1C #### [facility] ([id number]) [address], [address] [place] [address] BENZODIAZEPINES Negative Normal NEG [facility] Comment on above: Result Comment: James odiazepines screening cut off value = 200 ng/mL Performed By: #### P INR, 98207-2, 02856-9, CBCA, 47390-4, CMP, 4548-4, 6873-4 #### [facility] ([id number]) [address] [place] [address] 50198 #### HA1C #### [facility] ([id number]) [address] [facility], [address] [place] [address] CANNABINOIDS Negative Normal NEG [facility] Comment on above: Result Comment: Shawn abinoids/THC screening cut off value = 50 ng/mL Performed By: #### P INR, 86983-5, 23723-4, CBCA, 75649-5, CMP, 4548-4, 6873-4 #### [facility] ([id number]) [address] [place] [address] 22454 #### HA1C #### [facility] ([id number]) [address] [facility], [address] [place] [address] COCAINE METABOLITE Negative Normal NEG [facility] Comment on above: Result Comment: Coca ine screening cut off value = 300 ng/mL Performed By: #### P INR, 44536-9, 58944-1, CBCA, 86150-8, CMP, 4548-4, 6873-4 #### [facility] ([id number]) [address] [place] [address] 00687 #### HA1C #### [facility] ([id number]) [address], [address] [place] [address] ECSTASY Negative Normal NEG [facility] Comment on above: Result Comment: Ecst asy screening cut off value = 500 ng/mL This report is intended for use in clinical monitoring or management of patients. Performed By: #### P INR, 51241-0, 04410-9, CBCA, 57590-5, CMP, 4548-4, 6873-4 #### [facility] ([id number]) [address] [place] [address] 46946 #### HA1C #### [facility] ([id number]) [address], [address] [place] [address] METHADONE Negative Normal NEG [facility] Comment on above: Result Comment: Meth adone screening cut off value = 300 ng/mL. Performed By: #### P INR, 53047-6, 62357-5, CBCA, 81407-6, CMP, 4548-4, 6873-4 #### [facility] ([id number]) [address] [place] [address] 13151 #### HA1C #### [facility] ([id number]) [address], [address] [place] [address] OPIATES Negative Normal NEG [facility] Comment on above: Result Comment: Opia yanira screening cut off value = 300 ng/mL NOTE: This test is used for the detection of codeine, hydrocodone (>1000 ng/mL), morphine and hydromorphone (>900 ng/mL) in urine. Performed By: #### P INR, 67286-3, 15411-9, CBCA, 19703-3, CMP, 4548-4, 6873-4 #### [facility] ([id number]) [address] [place] [address] 69904 #### HA1C #### [facility] ([id number]) [address], [address] [place] [address] OXYCODONE Negative Normal NEG [facility] Comment on above: Result Comment: Oxyc odone screening cut off value = 300 ng/mL NOTE: This test is used for the detection of oxycodone and oxymorphone in urine. Performed By: #### P INR, 37255-1, 94610-1, CBCA, 33982-3, CMP, 4548-4, 6873-4 #### [facility] ([id number]) [address] [place] [address] 96018 #### HA1C #### [facility] ([id number]) [address] [facility], [address] [place] [address] PHENCYCLIDINE Negative Normal NEG [facility] Comment on above: Result Comment: Phen cyclidine screening cut off value = 25 ng/mL Performed By: #### P INR, 61309-1, 58486-8, CBCA, 35883-3, CMP, 4548-4, 6873-4 #### [facility] ([id number]) [address] [place] [address] 73691 #### HA1C #### [facility] ([id number]) [address] [facility], [address] [place] [address] Glucose Glucometer (BldC) [M ass/Vol]on 10-26-2023 Glucose [Mass/Vol] 286 mg/dL High 65-99 [facility] Glucose [Mass/Vol] 385 mg/dL High 65-99 [facility] HA1C CONFIRMATION - NO CHARG Ian 10-26-2023 HbA1c (Bld) [Mass fraction] 15.3 % High <=5.6 [facility] Comment on above: Result Comment: NOTE INTERPRETIVE INFORMATION: Hemoglobin A1c HbA1c values of 5.7-6.4 percent indicate an increased risk for developing diabetes mellitus. HbA1c values greater than or equal to 6.5 percent are diagnostic of diabetes mellitus. For diagnosis of diabetes in individuals without unequivocal hyperglycemia, results should be confirmed by repeat testing. Performed By: #### P INR, 58109-0, 92985-8, CBCA, 86575-9, CMP, 4548-4, 6873-4 #### [facility] ([id number]) [address] [place] [address] 67701 #### HA1C #### [facility] ([id number]) [address] [facility] [address] [place] [address] HGB A1C (GLYCO-HGB)on 2022 AVERAGE GLUCOSE >398 Normal [facility] Comment on above: Performed By: #### P INR, 80661-7, 48440-7, CBCA, 41073-5, CMP, 4548-4, 6873-4 #### [facility] ([id number]) [address] [place] [address] 95752 #### HA1C #### [facility] ([id number]) [address] [facility], [facility] [address] [place] [address] HbA1c (Bld) [Mass fraction] % High 4.4-5.6 [facility] Comment on above: Result Comment: NOTE ADA Guidelines Result HgbA1c Normal : less than 5.7 % Prediabetes : 5.7 % to 6.4 % Diabetes : > 6.4 % Use with caution in patients with abnormal hemoglobin variants as the half-life of red blood cells and in vivo glycation rates are affected. Performed By: #### P INR, 50703-2, 72596-5, CBCA, 32724-1, CMP, 4548-4, 6873-4 #### [facility] ([id number]) [address] [place] [address] 86672 #### HA1C #### [facility] ([id number]) [address] [facility] [address] [place] [address] HbA1c (Bld) [Mass fraction]o n 10-26-2023 Glucose [Mass/Vol] 392 mg/dL Normal [facility] Comment on above: Result Comment: NOTE Performed By: [facility] [address] [place] [address]471 Filing Or Registry Clerk: Aramis Taylor MD, PhD CLIA Number: [id number] Performed By: #### P INR, 12839-9, 61963-5, CBCA, 37618-9, CMP, 4548-4, 6873-4 #### [facility] ([id number]) [address] [place] [address] 02406 #### HA1C #### [facility] ([id number]) [address] [place] [address], [address] [place] [address] MAGNESIUMon 10-26-2023 Magnesium [Mass/Vol] 1.6 mg/dL Low 1.8-2.6 [facility] Comment on above: Performed By: #### P INR, 76661-0, 36635-5, CBCA, 22074-7, CMP, 4548-4, 6873-4 #### [facility] ([id number]) [address] [place] [address] 63395 #### HA1C #### [facility] ([id number]) [address] [place] [address], [address] [place] [address] PROTIME AND INRon 10-26-2023 INR Coag (PPP) [Relative time] 1.0 {INR} Normal 0.8-1.1 [facility] Comment on above: Performed By: #### P INR, 19272-1, 39760-3, CBCA, 29240-1, CMP, 4548-4, 6873-4 #### [facility] ([id number]) [address] [place] [address] 57096 #### HA1C #### [facility] ([id number]) [address] [place] [address], [address] [place] [address] PT Coag (PPP) [Time] 11.4 s Normal 9.8-13.2 [facility] Comment on above: Result Comment: NEW REFERENCE RANGE Performed By: #### P INR, 98829-5, 88268-7, CBCA, 35973-0, CMP, 4548-4, 6873-4 #### [facility] ([id number]) [address] [place] [address] 32131 #### HA1C #### [facility] ([id number]) [address] [facility], [address] [place] [address] TROPONIN Ion 10-26-2023 Troponin I.cardiac [Mass/Vol] 0.01 ng/mL Normal 0.00-0.04 [facility] Comment on above: Performed By: #### P INR, 37743-6, 29373-8, CBCA, 57276-1, CMP, 4548-4, 6873-4 #### [facility] ([id number]) [address] [place] [address] 80143 #### HA1C #### [facility] ([id number]) [address] [facility], [address] [place] [address] URN MACROSCOPIC NURon 2022 BILIRUBIN ALLYN Negative Normal NEG [facility] Comment on above: Performed By: #### P INR, 36460-6, 29142-5, CBCA, 89017-8, CMP, 4548-4, 6873-4 #### [facility] ([id number]) [address] [place] [address] 02197 #### HA1C #### [facility] ([id number]) [address] [facility], [address] [place] [address] BLOOD/HGB ALLYN Trace Abnormal NEG [facility] Comment on above: Performed By: #### P INR, 72765-7, 00166-0, CBCA, 70414-3, CMP, 4548-4, 6873-4 #### [facility] ([id number]) [address] [place] [address] 25203 #### HA1C #### [facility] ([id number]) [address] [place] [address] GLUCOSE ALLYN >=1000 Abnormal NEG [facility] Comment on above: Performed By: #### P INR, 11238-3, 00071-1, CBCA, 63930-5, CMP, 4548-4, 6873-4 #### [facility] ([id number]) [address] [place] [address] 68996 #### HA1C #### [facility] ([id number]) [address] [place] [address] KETONES ALLYN 40 mg/dL Abnormal NEG [facility] Comment on above: Performed By: #### P INR, 68778-5, 72079-3, CBCA, 86511-5, CMP, 4548-4, 6873-4 #### [facility] ([id number]) [address] [place] [address] 55252 #### HA1C #### [facility] ([id number]) [address] [place] [address] LEUKOCYTE ESTERASE ALLYN Negative Normal NEG [facility] Comment on above: Performed By: #### P INR, 87435-3, 11087-1, CBCA, 87805-5, CMP, 4548-4, 6873-4 #### [facility] ([id number]) [address] [place] [address] 09919 #### HA1C #### [facility] ([id number]) [address] [place] [address] NITRITE ALLYN Negative Normal NEG [facility] Comment on above: Performed By: #### P INR, 81629-7, 78674-7, CBCA, 81055-4, CMP, 4548-4, 6873-4 #### [facility] ([id number]) [address] [place] [address] 91105 #### HA1C #### [facility] ([id number]) [address] [facility], [address] [place] [address] PH ALLYN 5.5 Normal 5.0-8.5 [facility] Comment on above: Performed By: #### P INR, 61926-9, 02796-8, CBCA, 80316-1, CMP, 4548-4, 6873-4 #### [facility] ([id number]) [address] [place] [address] 20992 #### HA1C #### [facility] ([id number]) [address] [place] [address], [address] [place] [address] PROTEIN ALLYN Negative Normal NEG [facility] Comment on above: Performed By: #### P INR, 99546-9, 75270-6, CBCA, 05425-9, CMP, 4548-4, 6873-4 #### [facility] ([id number]) [address] [place] [address] 66169 #### HA1C #### [facility] ([id number]) [address] [place] [address], [address] [place] [address] SPECIFIC GRAVITY ALLYN 1.010 Normal 1.003-1.035 [facility] Comment on above: Performed By: #### P INR, 02491-0, 11353-2, CBCA, 20567-9, CMP, 4548-4, 6873-4 #### [facility] ([id number]) [address] [place] [address] 91607 #### HA1C #### [facility] ([id number]) [address] [place] [address], [address] [place] [address] UROBILINOGEN ALLYN 0.2 eu/dL Normal <1.1 [facility] Comment on above: Performed By: #### P INR, 36987-3, 64125-5, CBCA, 32756-7, CMP, 4548-4, 6873-4 #### [facility] ([id number]) [address] [place] [address] 79778 #### HA1C #### [facility] ([id number]) [address] [facility], [address] [place] [address] VENOUS BLOOD GASon 3 MICHELLE'S TEST Normal [facility] Comment on above: Performed By: #### V BG #### [facility] ([id number]) [address] [place] [address] 00954 Base excess Calc (Bld) [Moles/Vol] 0.0 mmol/L Normal 0.0-2.0 [facility] Comment on above: Performed By: #### V BG #### [facility] ([id number]) [address] [place] [address] 61280 Body temperature 98.6 [degF] Normal 37.0 [facility] Comment on above: Performed By: #### V BG #### [facility] ([id number]) [address] [place] [address] 49576 HCO3 (Bld) [Moles/Vol] 25.3 mmol/L High 20.0-24.0 [facility] Comment on above: Performed By: #### V BG #### [facility] ([id number]) [address] [place] [address] 02810 Oxygen saturation in Blood 73.0 % Low >80.0 [facility] Comment on above: Performed By: #### V BG #### [facility] ([id number]) [address] [place] [address] 51699 OXYGEN SOURCE RoomAir Normal [facility] Comment on above: Performed By: #### V BG #### [facility] ([id number]) [address] [place] [address] 14222 PCO2, VENOUS 41.3 MMHG Normal 35-50 [facility] Comment on above: Performed By: #### V BG #### [facility] ([id number]) [address] [place] [address] 88261 PH, VENOUS 7.396 Normal 7.320-7.420 [facility] Comment on above: Performed By: #### V BG #### [facility] ([id number]) [address] [place] [address] 13827 PO2, VENOUS 39 MMHG Normal 30-50 [facility] Comment on above: Performed By: #### V BG #### [facility] ([id number]) [address] [place] [address] 91260 SAMPLE SITE N/A Normal [facility] Comment on above: Performed By: #### V BG #### [facility] ([id number]) [address] [place] [address] 03905 SAMPLE TYPE VENOUS Normal [facility] Comment on above: Performed By: #### V BG #### [facility] ([id number]) [address] [place] [address] 04814 XR CHEST 1 VWon 10-26-2023 XR CHEST [...] Keyes MD on 10/26/2023 6:36 PM Normal [facility] aPTT Coag (PPP) [Time]on aPTT Coag (Bld) [Time] 34 s Normal 26-37 [facility] Comment on above: Result Comment: NEW REFERENCE RANGE Performed By: #### P INR, 75475-6, 96420-5, CBCA, 48223-2, CMP, 4548-4, 6873-4 #### [facility] ([id number]) [address] [place] [address] #### HA1C #### [facility] ([id number]) [address], [address] [place] [address] Vital Signs Date Time Vital Sign Value Performing Clinician Facility 03-31-2024 10:20-0400 Body height 180.34 cm [facility] 03-31-2024 10:20-0400 Body mass index (BMI) [Ratio] 34.9 kg/m2 [facility] 03-31-2024 10:20-0400 Body weight 113.53 kg [facility] 03-31-2024 10:20-0400 Diastolic blood pressure 73 mm[Hg] [facility] 03-31-2024 10:20-0400 Heart rate 79 /min [facility] 03-31-2024 10:20-0400 Respiratory rate 16 /min [facility] 03-31-2024 10:20-0400 Systolic blood pressure 149 mm[Hg] [facility] 03-26-2024 10:56-0400 Body height 180.34 cm [facility] 03-26-2024 10:56-0400 Body mass index (BMI) [Ratio] 34.9 kg/m2 [facility] 03-26-2024 10:56-0400 Body weight 113.62 kg [facility] 03-26-2024 10:56-0400 Diastolic blood pressure 81 mm[Hg] [facility] 03-26-2024 10:56-0400 Heart rate 86 /min [facility] 03-26-2024 10:56-0400 Respiratory rate 20 /min [facility] 03-26-2024 10:56-0400 Systolic blood pressure 157 mm[Hg] [facility] 01-23-2024 10:33-0400 Body height 180.34 cm [facility] 01-23-2024 10:33-0400 Body mass index (BMI) [Ratio] 36.1 kg/m2 [facility] 01-23-2024 10:33-0400 Body weight 117.65 kg [facility] 01-23-2024 10:33-0400 Diastolic blood pressure 69 mm[Hg] [facility] 01-23-2024 10:33-0400 Heart rate 71 /min [facility] 01-23-2024 10:33-0400 Respiratory rate 20 /min [facility] 01-23-2024 10:33-0400 Systolic blood pressure 159 mm[Hg] [facility] 12-30-2023 10:35-0500 Body height 177.8 cm Klaus Yeboah MD Work Phone: [facility] 12-30-2023 10:35-0500 Body mass index (BMI) [Ratio] 35.01 kg/m2 Klaus Yeboah MD Work Phone: [facility] 12-30-2023 10:35-0500 Body weight 110.68 kg Klaus Yeboah MD Work Phone: [facility] 12-11-2023 11:41-0500 Body height 177.8 cm Alexis Rojas MD Work Phone: [facility] 12-11-2023 11:41-0500 Body mass index (BMI) [Ratio] 35.01 kg/m2 Alexis Rojas MD Work Phone: [facility] 12-11-2023 11:41-0500 Body weight 110.68 kg Alexis Rojas MD Work Phone: [facility] 12-11-2023 11:41-0500 Diastolic blood pressure 73 mm[Hg] Alexis Rojas MD Work Phone: [facility] 12-11-2023 11:41-0500 Heart rate 90 /min Alexis Rojas MD Work Phone: [facility] [email or web address] [facility] 12-11-2023 11:41-0500 Systolic blood pressure 126 mm[Hg] Alexis Rojas MD Work Phone: [facility] [email or web address] [facility] 11-26-2023 10:45-0500 Body height 180.34 cm Vinnie Garza Other [facility] 11-26-2023 10:45-0500 Body mass index (BMI) [Ratio] 35.31 kg/m2 Vinnie Ball Other [facility] [employer] Other 11-26-2023 10:45-0500 Body weight 114.85 kg Vinnie Ball Other [facility] [employer] Other 11-26-2023 10:45-0500 Body weight 114.84 kg [facility] 11-26-2023 10:45-0500 Diastolic blood pressure 80 mm[Hg] Vinnie Ball Other [facility] 11-26-2023 10:45-0500 Respiratory rate 16 /min Vinnie Ball Other [facility] [employer] Other 11-26-2023 10:45-0500 Systolic blood pressure 132 mm[Hg] Vinnie Ball Other [facility] Encounters Encounter Date Encounter Type Care Provider Facility Start: [facility]24 [facility] Start: 06-05-2024 ambulatory [facility] Start: 06-05-2024 Encounter for other preprocedural examination SARAH Urban [facility] Start: 06-05-2024 End: 06-11-2024 Evaluation and management of inpatient [facility] Start: 06-05-2024 End: 06-12-2024 Emergency department patient visit PATRIA SOLOMON [facility] Start: 05-27-2024 End: 06-01-2024 Evaluation and management of inpatient [facility] Start: 05-13-2024 End: 05-13-2024 ambulatory [facility] Start: 05-12-2024 End: 05-13-2024 Emergency department patient visit BROOK SIMMS [facility] Start: 04-13-2024 End: 04-13-2024 ambulatory VINNIE Santos [facility] Start: 04-10-2024 End: 04-21-2024 Evaluation and management of inpatient MIRNA F AYDEE [facility] Start: 04-09-2024 End: 04-11-2024 Emergency department patient visit YUDELKA PARIKH [facility] Start: 04-09-2024 End: 04-10-2024 ambulatory [facility] Start: 03-31-2024 End: 03-31-2024 ambulatory [facility] Work Phone: Start: 03-31-2024 End: 03-31-2024 Patient encounter procedure [facility] Work Phone: Start: 03-29-2024 End: 04-26-2024 ambulatory [facility] Start: 03-26-2024 End: 03-26-2024 ambulatory [facility] Work Phone: Start: 03-26-2024 End: 03-26-2024 Patient encounter procedure [facility] Work Phone: Start: 02-13-2024 End: 03-27-2024 ambulatory [facility] Start: 02-12-2024 End: 02-12-2024 ambulatory [facility] Start: 02-04-2024 End: 02-04-2024 ambulatory JASON RODRIGUEZ Not Available Start: 01-23-2024 End: 01-23-2024 ambulatory [facility] Work Phone: Start: 01-23-2024 End: 01-23-2024 Patient encounter procedure [facility] Work Phone: Start: 12-30-2023 End: 12-30-2023 Office outpatient new 30 minutes Klaus Yeboah MD Work Phone: [facility] Comment on above: Arthritis of right k nee (Primary Dx); Right knee pain, unspecified chronicity Start: 12-30-2023 End: 12-30-2023 ambulatory KLAUS YEBOAH [facility] Start: 12-11-2023 End: 12-11-2023 Office outpatient visit 25 minutes Alexis Rojas MD Work Phone: [facility] Comment on above: Sequelae, post-strok e (Primary Dx); Cerebrovascular accident (CVA) due to thrombosis of precerebral artery ([facility]); Type 2 diabetes mellitus with hyperglycemia, with long-term current use of insulin ([facility]); Transient alteration of awareness; Mixed hyperlipidemia; Blurred vision; Gait instability Start: 12-11-2023 End: 12-11-2023 ambulatory [facility] Start: 12-01-2023 End: 12-01-2023 ambulatory Vinnie Garza Other [facility] Other Start: 12-01-2023 Telephone encounter Vinnie SUAZO [facility] Start: 11-26-2023 End: 11-26-2023 ambulatory Vinnie Garza Other [facility] Other Start: 11-26-2023 Office outpatient vi sit 25 minutes Vinnie Garza [facility] Start: 11-26-2023 Telephone encounter Vinnie SUAZO [facility] Start: 11-26-2023 End: 11-26-2023 Patient encounter procedure [facility] Start: 11-17-2023 Telephone encounter [facility] Start: 11-05-2023 End: 11-05-2023 ambulatory VINNIE Santos [facility] Start: 10-31-2023 Orders Only Alysha Gilbert RN [facility] Comment on above: Cerebrovascular acci dent (CVA) due to thrombosis of precerebral artery (CMS-HCC) (Primary Dx); Other cerebrovascular vasospasm and vasoconstriction Start: 10-28-2023 End: 10-30-2023 ambulatory [facility] Start: 10-28-2023 End: 10-30-2023 ambulatory [facility] Start: 10-28-2023 End: 10-30-2023 ambulatory HAMMAD PATEL [facility] Start: 10-26-2023 End: 10-30-2023 Emergency department patient visit SARAH Lopez [facility] Start: 10-26-2023 End: 10-29-2023 Evaluation and management of inpatient SARAH John [facility] Start: 05-09-[address] VINNIE Mcgraw [...] Adult BMI Screening Adult BMI Screen ing [facility] Start: 12-29-2024 Tobacco Screening Tobacco Screening [facility] Start: 12-11-2024 Adult BMI Screening Adult BMI Screen ing [facility] Start: 12-11-2024 Depression Screening Depression Scre ening [facility] Start: 12-11-2024 Tobacco Screening Tobacco Screening [facility] Start: 10-29-2024 Adult BMI Screening Adult BMI Screen ing [facility] Start: 10-26-2024 Tobacco Screening Tobacco Screening [facility] Start: 03-11-2024 End: 03-11-2024 Patient encounter procedure 03/11/2024 3:30 PM EDT Office Visit [facility] [address] [place] [phone] Alexis Rojas MD [address] [place] [address], [address] [place] [phone] [facility] Start: 12-11-2023 End: 12-11-2023 Patient encounter procedure 12/11/2023 11:30 AM EST Office Visit [facility] [address] [place] [phone] Alexis Rojas MD [address] [place] [address], [address] [place] [phone] [facility] Start: 12-04-2023 End: 12-04-2023 Patient encounter procedure 12/04/2023 9:00 AM EST Office Visit [facility] [address] [place] [phone] Ally Larson MD [address] [place] [address] [facility] Start: 10-31-2023 End: 10-31-2024 Event Monitor (In Office) MELANY DRAKE Work Phone: Comment on above: Expected: 10/31/2023 , Expires: 10/31/2024 Start: 06-27-2023 Influenza vaccination Influenza Vacc ine [facility] Start: 2018 Fall Risk Screening Fall Risk Screen ing [facility] Start: 05-02-2017 Urine screening for protein Urine Microalbumin [facility] Start: 2003 Administration of varicella zoster vaccine Zoster (Shingles) Vaccine (1 of 2) [facility] Start: 1972 DTaP,Tdap and Td Vaccines (1 - Tdap) DTaP,Tdap and Td Vaccines (1 - Tdap) [facility] Start: 1971 Adult BMI Follow Up Plan Adult BMI Follow Up Plan [facility] Start: 1971 Diabetic foot examination Diabetic Foot Exam [facility] Start: 1965 Depression Screening Depression Scre ening [facility] Start: 1953 Glaucoma screening Diabetic Op hthalmology Exam [facility] Start: 1953 Medicare Annual Well ness Visit Medicare Annual Wellness Visit [facility] Start: 1953 Tobacco Counseling Tobacco Counselin g [facility] End: 12-29-2024 Large Joint Injection/Arthrocentesis - PA Large Joint Injection/Arthrocentesi s - PA Procedures Routine Right knee pain, unspecified chronicity Arthritis of right knee 1 Occurrences starting 12/30/2023 until 12/29/2024 [employer] Work Phone: Comment on above: 1 Occurrences starti ng 12/30/2023 until 12/29/2024 End: 12-29-2024 Nicotine screen, urine Nicotine screen, urine Lab Routine Arthritis of right knee 1 Occurrences starting 12/30/2023 until 12/29/2024 [facility] Comment on above: 1 Occurrences starti ng 12/30/2023 until 12/29/2024 [facility] Immunizations Immunization Date Immunization Notes Care Provider Fortino rouse 07-08-2018 influenza virus vaccine, split virus (incl. purified surface antigen) Vinnie Garza Other [facility] Other 07-08-2018 influenza virus vaccine, unspecified formulation [facility] Payers Date Payer Category Payer Medicare A[employer] MEDICARE A ETNA MEDICARE PLAN (PPO) [id number] 2021-Present [phone] [address] [place] [address] [id number] 2021 Medicare [id number] 1961 Self-pay 1955 Unknown [id number] 2.16.840.1.675703.3.579.2.593 1953 Unknown [id number] 2.16.840.1.300568.3.579.2.593 1953 Unknown [id number] 2.16.840.1.863205.3.579.2.1259 1953 Unknown [id number] 2.16.840.1.770583.3.579.2.6 1953 Unknown [id number] 2.16.840.1.490394.3.579.2.128 1953 Unknown [id number] 2.16.840.1.732893.3.579.2.128 1953 Unknown [id number] 2.16.840.1.133942.3.579.2.1285 1953 Unknown [id number] 2.16.840.1.589694.3.579.2.1285 1953 Unknown [id number] 2.16.840.1.273035.3.579.2.1285 1953 Unknown [id number] 2.16.840.1.817643.3.579.2.128 1953 Unknown [id number] 2.16.840.1.053767.3.579.2.1285 1953 Unknown [id number] 2.16.840.1.553176.3.579.2.1285 1953 Unknown [id number] 2.16.840.1.545372.3.579.2.1285 1953 Unknown [id number] 2.16.840.1.772705.3.579.2.128 1953 Unknown [id number] 2.16.840.1.259533.3.579.2.1285 1953 Unknown [id number] 2.16.840.1.218284.3.579.2.128 1953 Unknown [id number] 2.16.840.1.369820.3.579.2.128 1953 Unknown [id number] 2.16.840.1.692598.3.579.2.1286 1953 Unknown [id number] 2.16.840.1.715735.3.579.2.1285 1953 Unknown [id number] 2.16.840.1.305525.3.579.2.1285 1953 Unknown [id number] 2.16.840.1.516955.3.579.2.1285 1953 Unknown [id number] 2.16.840.1.668504.3.579.2.1285 1953 Unknown [id number] 2.16.840.1.182171.3.579.2.1285 1953 Unknown [id number] 2.16.840.1.903763.3.579.2.1285 1953 Unknown [id number] 2.16.840.1.532723.3.579.2.1285 1953 Unknown [id number] 2.16.840.1.942373.3.579.2.1285 1953 Unknown [id number] 2.16.840.1.222967.3.579.2.1285 1953 Unknown [id number] 2.16.840.1.215632.3.579.2.1285 1953 Unknown [id number] 2.16.840.1.478682.3.579.2.1285 1953 Unknown [id number] 2.16.840.1.127282.3.579.2.1285 1953 Unknown [id number] 2.16.840.1.234485.3.579.2.1285 1953 Unknown [id number] 2.16.840.1.512626.3.579.2.1285 1953 Unknown [id number] 2.16.840.1.314498.3.579.2.1286 1953 Unknown [id number] 2.16.840.1.600398.3.579.2.1286 1953 Unknown [id number] 2.16.840.1.765444.3.579.2.1286 1953 Unknown [id number] 2.16.840.1.598608.3.579.2.1286 1953 Unknown [id number] 2.16.840.1.597954.3.579.2.1286 1953 Unknown [id number] 2.16.840.1.103846.3.579.2.1286 1953 Unknown [id number] 2.16.840.1.166768.3.579.2.1286 Medicare [id number] 2.16.840.1.076164.19 Unknown [id number] 2..840.1.021104.19 Social History Date Type Detail Facility Start: 10-26-2023 [facility] History of tobacco use Cigarette Smoker P [facility] Start: 10-26-2023 Tobacco use and exposure Smoke less tobacco non-user [facility] Start: 10-26-2023 End: 12-30-2023 Alcohol intake Ex-drinker (finding) [facility] Start: 12-07-2020 End: 10-26-2023 History of Social function [facility] Start: 12-07-2020 End: 10-26-2023 Tobacco use panel [facility] Housing Instability Unknown [facility] Start: 1955 Sex Assigned At Not on file P [facility] Start: 1955 Sex Assigned At Male F [facility] Goals Date Patient Goal Desired Activity /State [...] note were not included. Vashti Rivera 1955 [id number] Last encounter with me: Visit date not [...] Medical History: Diagnosis Date Arthritis Cataract Diabetes ([facility]) Diabetes mellitus type 2, controlled ([facility]) Fractures Past Surgical History: Procedure Laterality Date [...] of the aforementioned history prepared by the [facility] practice provider, and I personally performed the [...] hip xrays.. Klaus Yeboah MD Adult [facility] [address] [place] [address], [address] W: [phone] F: [phone] documented in this encounter [facility] 12-11-2023 History of Present illness Narrative [...] Medical History: Diagnosis Date Arthritis Cataract Diabetes ([facility]) Diabetes mellitus type 2, controlled ([facility]) Fractures Past Surgical History Past Surgical History: [...] hyperglycemia, with long-term current use of insulin ([facility]) Cerebrovascular accident (CVA) due to thrombosis ([facility]) Mixed hyperlipidemia Sequelae, post-stroke Gait instability Status [...] in 3 months. documented in this encounter [facility] Evaluation note Encounter Date Diagnosis Assessment Notes Nov, Type 2 diabetes mellitus with hyperglycemia (ICD-10 - E11.65) [facility] Other 01-31-2024 Evaluation note* Encounter Date Diagnosis Assessment Notes Treatment Notes Treatment Clinical Notes Oct, Type 2 diabetes mellitus with hyperglycemia (ICD-10 - E11.65) [facility] Other 01-31-2024 Evaluation note* Encounter Date Diagnosis [...] and elevate XR to r/o Fx Oct, FDC (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 insulin (ICD-10 - Z79.4) Oct, Hx of cerebral infar ction (ICD-10 - Z86.73) [facility] Other 01-22-2024 Miscellaneous Notes* Telephone Encounter - [...] Patient Services Outbound [facility] Note* Telephone Encounter - [...] day. Sincerely, Your [facility] Diagnosis Cerebrovascular accident (CVA) due to thrombosis of precerebral artery ([facility])- Primary Other cerebrovascular vasospasm and vasoconstriction documented in this [facility] Diagnosis Sequelae, post-stroke- Primary Cerebrovascular accident (CVA) due to thrombosis of precerebral artery ([facility]) Type 2 diabetes mellitus with hyperglycemia, with long-term current use of insulin ([facility]) Transient alteration of awareness Mixed hyperlipidemia Blurred vision Other specified visual disturbances Gait instability Abnormality of gait documented in [facility] Diagnosis Arthritis of right knee- Primary Right knee pain, unspecified chronicity Right knee pain, unspecified chronicity [facility] Diagnosis Onset Date Resolution Status Cerebral atherosclerosis acu te Cigarette nicotine dependence without complication acute Hypercholesterolemia acute Primary hypertension acute Type 2 diabetes mellitus with hyperglycemia acute [facility] Work Phone: Evaluation note* Diagnosis Onset Date Resolution Status Cerebral atherosclerosis acu te Cigarette nicotine dependence without complication acute Hypercholesterolemia acute Primary hypertension acute Primary osteoarthritis of right knee acute Type 2 diabetes mellitus with hyperglycemia acute Cerebral atherosclerosis acu te Cigarette nicotine dependence without complication acute Hypercholesterolemia acute Primary hypertension acute Type 2 diabetes mellitus with hyperglycemia acute [facility] Work Phone: Evaluation note* Diagnosis Onset Date [...] Type 2 diabetes mellitus with hyperglycemia acute [facility] Work Phone: History general Narrative - Reported* Type Description Date Medical History Cerebral atherosclerosis Medical History Hypercholesterolemia Medical History Primary hypertension Medical History Cigarette nicotine dependence wi thout complication Surgical History Tonsillectomy Surgical History Right Shoulder Surgery Surgical History Left TKA 2010 Surgical History Right Knee Arthroscopy x2 Surgical History 2: cataracts Surgical History ORIF Right Wrist Hospitalization History see surgical history [facility] Other InstructionsNot on filedocumented in this encounter [facility] SystemInstructionsNot on filedocumented in this encounter [facility] 401 SystemInstructionsNot on filedocumented in this encounter [facility] 401 SystemReason for visit NarrativeDiabetic education/XR results [facility] Other Summary Purpose Family History No Family [...] Event Monitor (In Office) Kong Gallegos APRN-CNP [address] [place] [address] [address] [place] [address] Referral ID Status Reason Start Date Expiration Date V isits Requested Visits Authorized [id number] Pending Review 10/31/2023 10/30/2024 1 1 Specialty Diagnoses / Procedures Referred By Contac t Referred To Contact Rehabilitation Diagnoses Cerebrovascular accident (CVA) due to thrombosis of precerebral artery (CMS-HCC) Sequelae, post-stroke Gait instability Alexis Rojas MD [address] [place] [address], [address] [place] [address] Referral ID Status Reason Start Date Expiration Date Visits Requested Visits Authorized [id number] Pending Review Specialty Services Required 12/11/2023 12/10/2024 1 1 Specialty Diagnoses / Procedures Referred By Contac t Referred To Contact Rehabilitation Diagnoses Arthritis of right knee Klaus Yeboah MD [address] [facility] [place] [address] Referral ID Status Reason Start Date Expiration Date Visits Requested Visits Authorized [id number] Pending Review Specialty Services Required 12/30/2023 12/29/2024 1 1 Specialty Diagnoses / Procedures Referred By Contac t Referred To Contact Diagnoses Right knee pain, unspecified chronicity Arthritis of right knee Procedures Large Joint Injection/Arthrocentesis - Klaus Lou MD [address] [place] [address] [facility] [place] [id number] [place] [address] Referral ID Status Reason Start Date Expiration Date V isits Requested Visits Authorized [id number] Pending Review 12/30/2023 12/29/2024 1 1 Chief [...] section and content) DATE CREATED AUTHOR 05/16/2022 [facility] DATE CREATED AUTHOR AUTHOR'S ORGANIZ ATION 02/05/2024 [facility] d[facility] Specialists EPIC DATE CREATED AUTHOR AUTHOR'S ORGANIZ ATION 06/02/2024 [facility] DATE CREATED AUTHOR AUTHOR'S ORGANIZ ATION 06/12/2024 [facility] DATE CREATED AUTHOR AUTHOR'S ORGANIZ ATION 06/16/2024 [facility] Care Teams (unrecognized sec tion and content) Bonding Supervisor Relationship Specialty Start [place] [address] [place] [phone] PCP - General Internal Medicine 10/26/23 Bonding Supervisor Relationship Specialty Start [place] [address] [place] [id number] PCP - General Internal Medicine 10/26/23 Bonding Supervisor Relationship Specialty Start Date End Date Vinnie Garza DO [address] [place] [address] PCP - General Internal Medicine 10/26/23 Bonding Supervisor Relationship Specialty Start Date End Date Vinnie Garza DO [address] [place] [address] PCP - General Internal Medicine 10/26/23 Team [...] BE BASED ON THE PRIMARY CLINICAL RECORDS. [email or web address] [facility]. provides no warranty or guarantee of the accuracy or completeness of information in this document.
--- NOTE | 2024-08-12 07:44 | CA_ITS ---
Patient Name: VASHTI MASSEY MR#: [id number] : 1955 Exam Date: 08/12/2024 Ordering Doctor: DR Vinnie Garza D.O. ECHOCARDIOGRAM REPORT PROCEDURE: CA ECHO DOPPLER COMPLETE INDICATIONS: Nonsustained ventricular tachycardia, CVA, Murmur COMPARISON: None. DESCRIPTION: COMPLETE ECHOCARDIOGRAM Real-time transthoracic echocardiography with 2D, M-mode, spectral and color flow Doppler performed. QUALITY: Technical quality was good. LEFT VENTRICLE: Normal chamber size. There is severe septal hypertrophy, measuring 2.2 cm. Global left ventricular systolic function is hyperdynamic. There is systolic anterior motion of the mitral valve chordae but no left ventricular outflow tract obstruction. LV EF: Estimated left ventricular ejection fraction is 75%. DIASTOLIC: Grade I diastolic dysfunction. ATRIAL SEPTUM: LEFT ATRIUM: Normal chamber size. RIGHT ATRIUM: Mild dilatation. RIGHT VENTRICLE: Normal chamber size. Normal right ventricular systolic function. TRICUSPID VALVE: Normal mobility and thickness. No stenosis with trivial regurgitation. No evidence of pulmonary hypertension. RVSP 25 mmHg MITRAL VALVE: Normal mobility and thickness. No evidence of mitral valve stenosis. There is no mitral annular calcification. Trivial mitral regurgitation. AORTIC VALVE: Normal trileaflet appearance. No visible sclerosis. Normal leaflet mobility. No evidence of aortic valve stenosis. Trivial aortic regurgitation. AORTIC ROOT: Normal diameter and appearance. PULMONIC VALVE: Normal thickness and mobility. No stenosis. Trivial regurgitation. PERICARDIUM: No evidence of pericardial effusion. IVC: Collapses with inspirations. Normal size. PLEURA: CONCLUSION: 1. Severe septal hypertrophy with hyperdynamic systolic function. No evidence of left ventricular outflow tract obstruction. Estimated LVEF is 75%. 2. Mild diastolic dysfunction. 3. Normal right ventricular size and systolic function. 4. No significant valvular dysfunction. 5. Normal right-sided pressures. 6. Phenotype is suggestive of possible hypertrophic cardiomyopathy. Further imaging such as cardiac MRI is recommended for confirmation. Adult Echocardiography Procedure Report Left Ventricle LVEDD (3.7 - 5.6 cm): 4.85 cm LVESD (2.2 - 4.0 cm): 3.41 cm LVIVS thickness (0.6 - 1.2 cm): 2.19 cm LVPW thickness (0.5 - 1.0 cm): 1.01 cm e': 0.09 m/s E - e': 4.66 LVOT Max Gradient: 2.50 mm[Hg] LVOT Area (cm2): 0.79 m/s Peak Velocity (LVOT): 0.79 m/s Mean Velocity (LVOT): 0.52 m/s LVOT Diameter 2.05 cm Left Ventricular Ejection Fraction: 75 % Left Atrium LA Volume Index (2D A2C): 21.65 ml/m2 Left Atrium Systolic Dimension: 3.11 cm Mitral Valve MV E to A Ratio: 0.74 Mitral Valve A-Wave Peak Velocity: 0.56 m/s Mitral Valve E-Wave Peak Velocity: 0.42 m/s Right Ventricle RV Internal Diastolic Dimension: 3.90 cm Aorta AO Root Diam: 3.91 cm Ascending Ao Diam: 3.64 cm Aortic Valve AoV Area (Peak Koko): 2.32 cm2, 2.32 cm2 AoV Area (VTI): 2.54 cm2, 2.54 cm2 Peak Velocity(Antegrade Flow): 1.12 m/s Peak Gradient(Antegrade Flow): 5.06 mm[Hg] Mean Velocity(Antegrade Flow): 0.78 m/s Mean Gradient(Antegrade Flow): 2.73 mm[Hg] Velocity Time Integral: 22.74 cm Tricuspid Valve Peak Velocity (Regurgitant Flow): 2.36 m/s, 2.36 m/s Pulmonic Valve Peak Velocity: 0.67 m/s Peak Gradient: 1.63 mm[Hg], 1.93 mm[Hg] Right Atrium Right Atrium Systolic Pressure: 64.61 ml, 64.61 ml Dictated by: Urbano Alex M.D. on 08/12/2024 at 17:29 Approved by: Urbano Alex M.D. on 08/12/2024 at 17:35
== END 2024-08-12 07:37 | disposition home or self-care (01) ==
LOC: CARD 07:36
PROVIDERS: PCP Internal Medicine; Visit Provider Internal Medicine
DX: I47.29 Other ventricular tachycardia (principal); I63.9 Cerebral infarction, unspecified; R01.1 Cardiac murmur, unspecified
CPT/HCPCS: 93306

== ENCOUNTER 2024-09-28 23:23 | Observation (INO) | payer MEDICARE, SELFPAY ==
[2024-09-28 23:24] VITALS: BP 138/76; PULSE 73; TEMP 36.6; O2SAT 97; BMI 25.8
--- OUTSIDE RECORDS SUMMARY | 2024-09-28 23:32 | XMS_ITS | CCD ---
Author Organization [facility] Care Team Providers Care Fast Food Manager Name Role Phone MUKESH, DR BUSH Primary [...] Primary Care Unavailable KONG GALLEGOS Attending Unavailable KNOG GALLEGOS Referring Unavailable VINNIE GARZA Primary Care [...] Primary Care Unavailable GOLBROOK OLIVA Attending Unavailable GOLBROOK OLIVA Attending Unavailable GOLBROOK OILVA Referring Unavailable VINNIE GARZA Primary Care Unavailable MUKESH, VINNIE Graham Primary Care Unavailable MOUNIKA MENDOZA Attending Unavailable ALLY LARSON Admitting Unavailable BALL, VINNIE E Referring Unavailable BALL, VINNIE E Primary Care Unavailable VOKLAUS ROGERS Attending Unavailable BALL, VINNIE E Referring Unavailable BALL, VINNIE E Primary Care Unavailable VOVOSKLAUS Referring Unavailable BALL, VINNIE E Primary Care Unavailable VOVOS, KLAUS Lopez Attending Unavailable VOVOSKLAUS Referring Unavailable BALL, VINNIE E Primary Care Unavailable BALL, VINNIE E Referring Unavailable BALL, VINNIE E Primary Care Unavailable BALL, VINNIE E Referring Unavailable BALL, VINNIE E Primary Care Unavailable TAWANNA, EHAD Attending Unavailable BALL, VINNIE E Referring Unavailable BALL, VINNIE E Primary Care Unavailable AYDEE, MIRNA F Admitting Unavailable AYDEE, MIRNA F Attending Unavailable EMILIA JEFFREY U Referring Unavailable BALL, VINNIE E Primary Care Unavailable TT ONLY, ACADEMIC GI [...] Unavailable BALL, VINNIE E Primary Care Unavailable ERINN ZUÑIGA Attending Unavailable Medications Current Medications Medication Drug Class(es) [...] 10/29/2023 Active Blood-Glucose Meter,Continuous (Freestyle Kathie 3 Reading) misc (2 sources) Start: 03-01-2024 Blood-Glucose Meter,Continuous (Freestyle Kathie 3 Reading) misc Active 0 .Route 1 March 01, [...] March 26, 2024 12:00am FreeStyle Kathie 2 Reading - (4 sources) Start: 11-26-2023 FreeStyle Kathie 2 Reading - Use to test home BS transcutaneous [...] oral tablet (4 sources) alpha-Adrenergic Michael, beta-Adrenergic Michale Start: 07-24-2021 take 1 tablet by mouth [...] evening meal for 90 *Pick strength-form from [employer] for eRX* 07 Jun, 2021 Not-Taking/PRN NovoLIN [...] evening meal for 30 *Pick strength-form from [employer] for eRX* 15 Jul, 2020 Not-Taking/PRN pravastatin [...] sources) Long-term current use of insulin; 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: [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] Episodic Other aftercare (4 sources) 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; 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: [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] Onset: 10-28-2023 Episodic [...] awareness; 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: [Transient alteration of awareness] Onset: 01-02-2024 02-15-2024 Episodic Residual codes; unclassified (1 source) Altered mental status, unspecified; 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: [Altered mental status, unspecified] Onset: 10-28-2023 Episodic Residual codes; unclassified (1 source) Hallucinations Onset: 10-26-2023 Episodic Residual codes; unclassified (1 source) Pain Onset: 12-30-2023 Episodic Results Test Name Value Interpretation Reference Range Facility Office Visiton 09-09-2024 Follow-up visit [id number] Vashti Rivera Wilmar 1955 M Date Provider Department Center 09/09/2024 Ezio8-ERINN ZUÑIGA CARD [facility] Family History Problem Relation Age of Onset No Known Problems Mother No Known Problems Father Heart attack Paternal Grandmother Family Status - Relation Status Age at Mother Father Paternal Grandmother Level of Service:75288 PA OFFICE/OUTPATIENT NEW MODERATE MDM 45 MINUTES Normal [facility] BASIC METABOLIC PANLon 06-11 Anion gap [Moles/Vol] 9 mmol/L Normal 5-15 [facility] Comment on above: Performed By: #### C BCA, CMP #### [facility] ([id number]) [address], [address] [place] [address] Calcium [Mass/Vol] 9.2 mg/dL Normal 8.5-10.5 [facility] Comment on above: Performed By: #### C BCA, CMP #### [facility] ([id number]) [address], [address] [place] [address] Chloride [Moles/Vol] 97 mmol/L Low 98-109 [facility] Comment on above: Performed By: #### C BCA, CMP #### [facility] ([id number]) [address], [address] [place] [address] CO2 [Moles/Vol] 29 mmol/L Normal 22-32 [facility] Comment on above: Performed By: #### C BCA, CMP #### [facility] ([id number]) [address], [address] [place] [address] Creatinine [Mass/Vol] 0.54 mg/dL Low 0.60-1.30 [facility] Comment on above: Result Comment: METH OD TRACEABLE TO IDMS STANDARD Performed By: #### C BCA, CMP #### [facility] ([id number]) [address], [address] [place] [address] eGFR (CKD-EPI) NON-RACE DEPENDENT >90 Normal >59 [facility] Comment on above: Result Comment: Reported eGFR is based on the CKD-EPI 2020 equation that does not use a race coefficient. Performed By: #### C BCA, CMP #### [facility] ([id number]) [address], [address] [place] [address] Glucose [Mass/Vol] 158 mg/dL High 65-99 [facility] Comment on above: Performed By: #### C BCA, CMP #### [facility] ([id number]) [address], [address] [place] [address] Potassium [Moles/Vol] 4.2 mmol/L Normal 3.5-5.0 [facility] Comment on above: Performed By: #### C BCA, CMP #### [facility] ([id number]) [address], [address] [place] [address] Sodium [Moles/Vol] 135 mmol/L Normal 134-146 [facility] Comment on above: Performed By: #### C BCA, CMP #### [facility] ([id number]) [address] [address] [place] [address] Urea nitrogen [Mass/Vol] 20 mg/dL Normal 5-27 [facility] Comment on above: Performed By: #### C BCA, CMP #### [facility] ([id number]) [address], [address] [place] [address] CBC AND AUTO DIFFon 16 24 ABSOLUTE BASOPHIL 0.1 X10E9/L Normal 0.0-0.2 [facility] Comment on above: Performed By: #### C BCA, CMP #### [facility] ([id number]) [address], [address] [place] [address] ABSOLUTE NEUTROPHIL 2.8 X10E9/L Normal 1.5-6.6 [facility] Comment on above: Performed By: #### C BCA, CMP #### [facility] ([id number]) [address], [address] [place] [address] Basophils/100 WBC (Bld) 1.2 % Normal [facility] Comment on above: Performed By: #### C BCA, CMP #### [facility] ([id number]) [address], [address] [place] [address] Eosinophils (Bld) [#/Vol] 0.1 10*3/uL Normal 0.0-0.4 [facility] Comment on above: Performed By: #### C BCA, CMP #### [facility] ([id number]) [address], [address] [place] [address] Eosinophils/100 WBC (Bld) 2.1 % Normal [facility] Comment on above: Performed By: #### C BCA, CMP #### [facility] ([id number]) [address], [address] [place] [address] Erythrocyte distribution width (RBC) [Ratio] 15.6 % High 11.5-15.0 [facility] Comment on above: Performed By: #### C BCA, CMP #### [facility] ([id number]) [address], [address] [place] [address] Hematocrit (Bld) [Volume fraction] 34.3 % Low 39-49 [facility] Comment on above: Performed By: #### C BCA, CMP #### [facility] ([id number]) [address], [address] [place] [address] Hemoglobin (Bld) [Mass/Vol] 11.6 g/dL Low 13.0-17.0 [facility] Comment on above: Performed By: #### C ZACHARY, CMP #### [facility] ([id number]) [address], [address] [place] [address] Lymphocytes (Bld) [#/Vol] 1.0 10*3/uL Normal 1.0-3.5 [facility] Comment on above: Performed By: #### C BCA, CMP #### [facility] ([id number]) [address], [address] [place] [address] Lymphocytes/100 WBC (Bld) 23.1 % Normal [facility] Comment on above: Performed By: #### C BCA, CMP #### [facility] ([id number]) [address], [address] [place] [address] MCH (RBC) [Entitic mass] 27.1 pg Normal 27-34 [facility] Comment on above: Performed By: #### C BCA, CMP #### [facility] ([id number]) [address], [address] [place] [address] MCHC (RBC) [Mass/Vol] 33.9 g/dL Normal 32-36 [facility] Comment on above: Performed By: #### C BCA, CMP #### [facility] ([id number]) [address], [address] [place] [address] MCV (RBC) [Entitic vol] 80 fL Normal 80-100 [facility] Comment on above: Performed By: #### C BCA, CMP #### [facility] ([id number]) [address], [address] [place] [address] Monocytes (Bld) [#/Vol] 0.4 10*3/uL Normal 0-0.9 [facility] Comment on above: Performed By: #### C BCA, CMP #### [facility] ([id number]) [address], [address] [place] [address] Monocytes/100 WBC (Bld) 9.6 % Normal [facility] Comment on above: Performed By: #### C ZACHARY, CMP #### [facility] ([id number]) [address], [address] [place] [address] Neutrophils/100 WBC (Bld) 64.0 % Normal [facility] Comment on above: Performed By: #### C ZACHARY, CMP #### [facility] ([id number]) [address], [address] [place] [address] Platelet mean volume (Bld) [Entitic vol] 7.0 fL Normal 7-12 [facility] Comment on above: Performed By: #### C ZACHARY, CMP #### [facility] ([id number]) [address] [address] [place] [address] Platelets (Bld) [#/Vol] 284 10*3/uL Normal 150-450 [facility] Comment on above: Performed By: #### C ZACHARY, CMP #### [facility] ([id number]) [address], [address] [place] [address] RBC COUNT 4.29 X10E12/L Normal 4.10-5.70 [facility] Comment on above: Performed By: #### C ZACHARY, CMP #### [facility] ([id number]) [address] [address] [place] [address] WBC (Bld) [#/Vol] 4.4 10*3/uL Normal 4.0-11.0 [facility] Comment on above: Performed By: #### C ZACHARY, CMP #### [facility] ([id number]) [address] [address] [place] [address] Glucose Glucometer (BldC) [M ass/Vol]on 08-16-2024 Glucose [Mass/Vol] 220 mg/dL High 65-99 [facility] Glucose [Mass/Vol] 210 mg/dL High 65-99 [facility] Glucose [Mass/Vol] 245 mg/dL High 65-99 [facility] Glucose [Mass/Vol] 164 mg/dL High 65-99 [facility] BASIC METABOLIC PANLon 06-10 Anion gap [Moles/Vol] 10 mmol/L Normal 5-15 [facility] Comment on above: Performed By: #### C BCA, CMP #### [facility] ([id number]) [address], [address] [place] [address] Calcium [Mass/Vol] 9.3 mg/dL Normal 8.5-10.5 [facility] Comment on above: Performed By: #### C BCA, CMP #### [facility] ([id number]) [address], [address] [place] [address] Chloride [Moles/Vol] 96 mmol/L Low 98-109 [facility] Comment on above: Performed By: #### C BCA, CMP #### [facility] ([id number]) [address], [address] [place] [address] CO2 [Moles/Vol] 28 mmol/L Normal 22-32 [facility] Comment on above: Performed By: #### C BCA, CMP #### [facility] ([id number]) [address], [address] [place] [address] Creatinine [Mass/Vol] 0.58 mg/dL Low 0.60-1.30 [facility] Comment on above: Result Comment: METH OD TRACEABLE TO IDMS STANDARD Performed By: #### C BCA, CMP #### [facility] ([id number]) [address], [address] [place] [address] eGFR (CKD-EPI) NON-RACE DEPENDENT >90 Normal >59 [facility] Comment on above: Result Comment: Reported eGFR is based on the CKD-EPI 2020 equation that does not use a race coefficient. Performed By: #### C BCA, CMP #### [facility] ([id number]) [address] [address] [place] [address] Glucose [Mass/Vol] 173 mg/dL High 65-99 [facility] Comment on above: Performed By: #### C BCA, CMP #### [facility] ([id number]) [address] [address] Potassium [Moles/Vol] 4.1 mmol/L Normal 3.5-5.0 [facility] Comment on above: Performed By: #### C BCA, CMP #### [facility] ([id number]) [address] [address] Sodium [Moles/Vol] 134 mmol/L Normal 134-146 [facility] Comment on above: Performed By: #### C BCA, CMP #### [facility] ([id number]) [address] [address] Urea nitrogen [Mass/Vol] 18 mg/dL Normal 5-27 [facility] Comment on above: Performed By: #### C BCA, CMP #### [facility] ([id number]) [address] [address] CBC AND AUTO DIFFon 06-10-20 24 ABSOLUTE BASOPHIL 0.0 X10E9/L Normal 0.0-0.2 [facility] Comment on above: Performed By: #### C BCA, CMP #### [facility] ([id number]) [address] [address] ABSOLUTE NEUTROPHIL 2.6 X10E9/L Normal 1.5-6.6 [facility] Comment on above: Performed By: #### C BCA, CMP #### [facility] ([id number]) [address] [address] [place] [address] Basophils/100 WBC (Bld) 1.0 % Normal [facility] Comment on above: Performed By: #### C BCA, CMP #### [facility] ([id number]) [address], [address] [place] [address] Eosinophils (Bld) [#/Vol] 0.1 10*3/uL Normal 0.0-0.4 [facility] Comment on above: Performed By: #### C BCA, CMP #### [facility] ([id number]) [address], [address] [place] [address] Eosinophils/100 WBC (Bld) 1.9 % Normal [facility] Comment on above: Performed By: #### C ZACHARY, CMP #### [facility] ([id number]) [address], [address] [place] [address] Erythrocyte distribution width (RBC) [Ratio] 15.8 % High 11.5-15.0 [facility] Comment on above: Performed By: #### C ZACHARY, CMP #### [facility] ([id number]) [address], [address] [place] [address] Hematocrit (Bld) [Volume fraction] 34.3 % Low 39-49 [facility] Comment on above: Performed By: #### C BCA, CMP #### [facility] ([id number]) [address], [address] [place] [address] Hemoglobin (Bld) [Mass/Vol] 11.3 g/dL Low 13.0-17.0 [facility] Comment on above: Performed By: #### C BCA, CMP #### [facility] ([id number]) [address] [address] [place] [address] Lymphocytes (Bld) [#/Vol] 1.1 10*3/uL Normal 1.0-3.5 [facility] Comment on above: Performed By: #### C BCA, CMP #### [facility] ([id number]) [address], [address] [place] [address] Lymphocytes/100 WBC (Bld) 26.6 % Normal [facility] Comment on above: Performed By: #### C BCA, CMP #### [facility] ([id number]) [address], [address] [place] [address] MCH (RBC) [Entitic mass] 26.4 pg Low 27-34 [facility] Comment on above: Performed By: #### C ZACHARY, CMP #### [facility] ([id number]) [address], [address] [place] [address] MCHC (RBC) [Mass/Vol] 32.8 g/dL Normal 32-36 [facility] Comment on above: Performed By: #### C ZACHARY, CMP #### [facility] ([id number]) [address], [address] [place] [address] MCV (RBC) [Entitic vol] 80 fL Normal 80-[address] [facility] Comment on above: Performed By: #### C BCA, CMP #### [facility] ([id number]) [address], [address] [place] [address] Monocytes (Bld) [#/Vol] 0.4 10*3/uL Normal 0-0.9 [facility] Comment on above: Performed By: #### C BCA, CMP #### [facility] ([id number]) [address], [address] [place] [address] Monocytes/100 WBC (Bld) 8.2 % Normal [facility] Comment on above: Performed By: #### C BCA, CMP #### [facility] ([id number]) [address] [place] [address] Neutrophils/100 WBC (Bld) 62.3 % Normal [facility] Comment on above: Performed By: #### C BCA, CMP #### [facility] ([id number]) [address] [address] Platelet mean volume (Bld) [Entitic vol] 7.0 fL Normal 7-12 [facility] Comment on above: Performed By: #### C BCA, CMP #### [facility] ([id number]) [address], [address] [address] Platelets (Bld) [#/Vol] 290 10*3/uL Normal 150-450 [facility] Comment on above: Performed By: #### C BCA, CMP #### [facility] ([id number]) [address], [address] [address] RBC COUNT 4.26 X10E12/L Normal 4.10-5.70 [facility] Comment on above: Performed By: #### C BCA, CMP #### [facility] ([id number]) [address], [address] [address] WBC (Bld) [#/Vol] 4.3 10*3/uL Normal 4.0-11.0 [facility] Comment on above: Performed By: #### C BCA, CMP #### [facility] ([id number]) [address], [address] [address] Glucose Glucometer (dC) [M ass/Vol]on 06-10-2024 Glucose [Mass/Vol] 258 mg/dL High 65-99 [facility] Glucose [Mass/Vol] 272 mg/dL High 65-99 [facility] Glucose [Mass/Vol] 275 mg/dL High 65-99 [facility] Glucose [Mass/Vol] 175 mg/dL High 65-99 [facility] Glucose [Mass/Vol] 168 mg/dL High 65-99 [facility] Glucose [Mass/Vol] 181 mg/dL High 65-99 [facility] BASIC METABOLIC PANLon 06-09 Anion gap [Moles/Vol] 8 mmol/L Normal 5-15 [facility] Comment on above: Performed By: #### C BCA, CMP #### [facility] ([id number]) [address], [address] [place] [address] Calcium [Mass/Vol] 8.9 mg/dL Normal 8.5-10.5 [facility] Comment on above: Performed By: #### C BCA, CMP #### [facility] ([id number]) [address], [address] [place] [address] Chloride [Moles/Vol] 98 mmol/L Normal 98-109 [facility] Comment on above: Performed By: #### C BCA, CMP #### [facility] ([id number]) [address], [address] [place] [address] CO2 [Moles/Vol] 29 mmol/L Normal 22-32 [facility] Comment on above: Performed By: #### C BCA, CMP #### [facility] ([id number]) [address], [address] [place] [address] Creatinine [Mass/Vol] 0.51 mg/dL Low 0.60-1.30 [facility] Comment on above: Result Comment: METH OD TRACEABLE TO IDMS STANDARD Performed By: #### C BCA, CMP #### [facility] ([id number]) [address], [address] [place] [address] eGFR (CKD-EPI) NON-RACE DEPENDENT >90 Normal >59 [facility] Comment on above: Result Comment: Reported eGFR is based on the CKD-EPI 2020 equation that does not use a race coefficient. Performed By: #### C BCA, CMP #### [facility] ([id number]) [address], [address] [place] [address] Glucose [Mass/Vol] 174 mg/dL High 65-99 [facility] Comment on above: Performed By: #### C BCA, CMP #### [facility] ([id number]) [address] [place] [address] Potassium [Moles/Vol] 4.2 mmol/L Normal 3.5-5.0 [facility] Comment on above: Performed By: #### C BCA, CMP #### [facility] ([id number]) [address], [address] [place] [address] Sodium [Moles/Vol] 135 mmol/L Normal 134-146 [facility] Comment on above: Performed By: #### C BCA, CMP #### [facility] ([id number]) [address] [place] [address] Urea nitrogen [Mass/Vol] 13 mg/dL Normal 5-27 [facility] Comment on above: Performed By: #### C BCA, CMP #### [facility] ([id number]) [address] [place] [address] CBC AND AUTO DIFFon 06-09-20 24 ABSOLUTE BASOPHIL 0.1 X10E9/L Normal 0.0-0.2 [facility] Comment on above: Performed By: #### C BCA, CMP #### [facility] ([id number]) [address], [address] [place] [address] ABSOLUTE NEUTROPHIL 2.4 X10E9/L Normal 1.5-6.6 [facility] Comment on above: Performed By: #### C BCA, CMP #### [facility] ([id number]) [address] [place] [address] Basophils/100 WBC (Bld) 1.4 % Normal [facility] Comment on above: Performed By: #### C BCA, CMP #### [facility] ([id number]) [address], [address] [place] [address] Eosinophils (Bld) [#/Vol] 0.1 10*3/uL Normal 0.0-0.4 [facility] Comment on above: Performed By: #### C ZACHARY, CMP #### [facility] ([id number]) [address] [place] [address] Eosinophils/100 WBC (Bld) 3.1 % Normal [facility] Comment on above: Performed By: #### C ZACHARY, CMP #### [facility] ([id number]) [address], [facility] [address] [place] [address] Erythrocyte distribution width (RBC) [Ratio] 16.2 % High 11.5-15.0 [facility] Comment on above: Performed By: #### C ZACHARY, CMP #### [facility] ([id number]) [address] [place] [address] Hematocrit (Bld) [Volume fraction] 33.5 % Low 39-49 [facility] Comment on above: Performed By: #### C ZACHARY, CMP #### [facility] ([id number]) [address] [place] [address] Hemoglobin (Bld) [Mass/Vol] 11.3 g/dL Low 13.0-17.0 [facility] Comment on above: Performed By: #### C ZACHARY, CMP #### [facility] ([id number]) [address] [place] [address] Lymphocytes (Bld) [#/Vol] 1.2 10*3/uL Normal 1.0-3.5 [facility] Comment on above: Performed By: #### C ZACHARY, CMP #### [facility] ([id number]) [address] [place] [address] Lymphocytes/100 WBC (Bld) 28.7 % Normal [facility] Comment on above: Performed By: #### C BCA, CMP #### [facility] ([id number]) [address] [place] [address] MCH (RBC) [Entitic mass] 27.0 pg Normal 27-34 [facility] Comment on above: Performed By: #### C BCA, CMP #### [facility] ([id number]) [address], [address] [place] [address] MCHC (RBC) [Mass/Vol] 33.6 g/dL Normal 32-36 [facility] Comment on above: Performed By: #### C ZACHARY, CMP #### [facility] ([id number]) [address], [address] [place] [address] MCV (RBC) [Entitic vol] 80 fL Normal 80-[address] [facility] Comment on above: Performed By: #### C ZACHARY, CMP #### [facility] ([id number]) [address], [address] [place] [address] Monocytes (Bld) [#/Vol] 0.3 10*3/uL Normal 0-0.9 [facility] Comment on above: Performed By: #### C BCA, CMP #### [facility] ([id number]) [address], [address] [place] [address] Monocytes/100 WBC (Bld) 7.6 % Normal P [facility] Comment on above: Performed By: #### C BCA, CMP #### [facility] ([id number]) [address], [address] [place] [address] Neutrophils/100 WBC (Bld) 59.2 % Normal [facility] Comment on above: Performed By: #### C BCA, CMP #### [facility] ([id number]) [address], [address] [place] [address] Platelet mean volume (Bld) [Entitic vol] 6.9 fL Low 7-12 [facility] Comment on above: Performed By: #### C BCA, CMP #### [facility] ([id number]) [address], [address] [place] [address] Platelets (Bld) [#/Vol] 280 10*3/uL Normal 150-450 [facility] Comment on above: Performed By: #### C BCA, CMP #### [facility] ([id number]) [address], [address] [place] [address] RBC COUNT 4.17 X10E12/L Normal 4.10-5.70 [facility] Comment on above: Performed By: #### C BCA, CMP #### [facility] ([id number]) [address] [place] [address] WBC (Bld) [#/Vol] 4.1 10*3/uL Normal 4.0-11.0 [facility] Comment on above: Performed By: #### C BCA, CMP #### [facility] ([id number]) [address], [address] [place] [address] Glucose Glucometer (BldC) [M ass/Vol]on 06-09-2024 Glucose [Mass/Vol] 215 mg/dL High 65-99 [facility] Glucose [Mass/Vol] 217 mg/dL High 65-99 [facility] BASIC METABOLIC PANLon 06-08 Anion gap [Moles/Vol] 9 mmol/L Normal 5-15 [facility] Comment on above: Performed By: #### C BCA, CMP #### [facility] ([id number]) [address] [place] [address] Calcium [Mass/Vol] 8.7 mg/dL Normal 8.5-10.5 [facility] Comment on above: Performed By: #### C BCA, CMP #### [facility] ([id number]) [address], [address] [place] [address] Chloride [Moles/Vol] 99 mmol/L Normal 98-109 [facility] Comment on above: Performed By: #### C BCA, CMP #### [facility] ([id number]) [address], [address] [place] [address] CO2 [Moles/Vol] 27 mmol/L Normal 22-32 [facility] Comment on above: Performed By: #### C BCA, CMP #### [facility] ([id number]) [address] [place] [address] Creatinine [Mass/Vol] 0.64 mg/dL Normal 0.60-1.30 [facility] Comment on above: Result Comment: METH OD TRACEABLE TO IDMS STANDARD Performed By: #### C BCA, CMP #### [facility] ([id number]) [address] [address] [place] [address] eGFR (CKD-EPI) NON-RACE DEPENDENT >90 Normal >59 [facility] Comment on above: Result Comment: Reported eGFR is based on the CKD-EPI 2020 equation that does not use a race coefficient. Performed By: #### C BCA, CMP #### [facility] ([id number]) [address] [place] [address] Glucose [Mass/Vol] 166 mg/dL High 65-99 [facility] Comment on above: Performed By: #### C BCA, CMP #### [facility] ([id number]) [address] [place] [address] Potassium [Moles/Vol] 4.2 mmol/L Normal 3.5-5.0 [facility] Comment on above: Performed By: #### C BCA, CMP #### [facility] ([id number]) [address], [address] [place] [address] Sodium [Moles/Vol] 135 mmol/L Normal 134-146 [facility] Comment on above: Performed By: #### C BCA, CMP #### [facility] ([id number]) [address], [address] [place] [address] Urea nitrogen [Mass/Vol] 16 mg/dL Normal 5-27 [facility] Comment on above: Performed By: #### C BCA, CMP #### [facility] ([id number]) [address] [place] [address] CBC AND AUTO DIFFon 06-08-20 24 ABSOLUTE BASOPHIL 0.1 X10E9/L Normal 0.0-0.2 [facility] Comment on above: Performed By: #### C BCA, CMP #### [facility] ([id number]) [address], [address] [place] [address] ABSOLUTE NEUTROPHIL 3.8 X10E9/L Normal 1.5-6.6 [facility] Comment on above: Performed By: #### C BCA, CMP #### [facility] ([id number]) [address] [place] [address] Basophils/100 WBC (Bld) 1.1 % Normal [facility] Comment on above: Performed By: #### C BCA, CMP #### [facility] ([id number]) [address], [address] [place] [address] Eosinophils (Bld) [#/Vol] 0.1 10*3/uL Normal 0.0-0.4 [facility] Comment on above: Performed By: #### C BCA, CMP #### [facility] ([id number]) [address], [address] [place] [address] Eosinophils/100 WBC (Bld) 1.6 % Normal [facility] Comment on above: Performed By: #### C BCA, CMP #### [facility] ([id number]) [address], [address] [place] [address] Erythrocyte distribution width (RBC) [Ratio] 15.4 % High 11.5-15.0 [facility] Comment on above: Performed By: #### C ZACHARY, CMP #### [facility] ([id number]) [address], [facility] [address] [place] [address] Hematocrit (Bld) [Volume fraction] 32.3 % Low 39-49 [facility] Comment on above: Performed By: #### C ZACHARY, CMP #### [facility] ([id number]) [address] [address] [place] [address] Hemoglobin (Bld) [Mass/Vol] 10.8 g/dL Low 13.0-17.0 [facility] Comment on above: Performed By: #### C ZACHARY, CMP #### [facility] ([id number]) [address] [place] [address] Lymphocytes (Bld) [#/Vol] 1.2 10*3/uL Normal 1.0-3.5 [facility] Comment on above: Performed By: #### C ZACHARY, CMP #### [facility] ([id number]) [address], [facility] [address] [place] [address] Lymphocytes/100 WBC (Bld) 21.2 % Normal [facility] Comment on above: Performed By: #### C ZACHARY, CMP #### [facility] ([id number]) [address] [place] [address] MCH (RBC) [Entitic mass] 26.9 pg Low 27-34 [facility] Comment on above: Performed By: #### C BCA, CMP #### [facility] ([id number]) [address] [address] [place] [address] MCHC (RBC) [Mass/Vol] 33.3 g/dL Normal 32-36 [facility] Comment on above: Performed By: #### C BCA, CMP #### [facility] ([id number]) [address], [address] [place] [address] MCV (RBC) [Entitic vol] 81 fL Normal 80-100 [facility] Comment on above: Performed By: #### C ZACHARY, CMP #### [facility] ([id number]) [address], [address] [place] [address] Monocytes (Bld) [#/Vol] 0.3 10*3/uL Normal 0-0.9 [facility] Comment on above: Performed By: #### C ZACHARY, CMP #### [facility] ([id number]) [address], [address] [place] [address] Monocytes/100 WBC (Bld) 5.8 % Normal [facility] Comment on above: Performed By: #### C ZACHARY, CMP #### [facility] ([id number]) [address], [address] [place] [address] Neutrophils/100 WBC (Bld) 70.3 % Normal [facility] Comment on above: Performed By: #### C ZACHARY, CMP #### [facility] ([id number]) [address], [address] [place] [address] Platelet mean volume (Bld) [Entitic vol] 7.1 fL Normal 7-12 [facility] Comment on above: Performed By: #### C ZACHARY, CMP #### [facility] ([id number]) [address], [address] [place] [address] Platelets (Bld) [#/Vol] 269 10*3/uL Normal 150-450 [facility] Comment on above: Performed By: #### C BCA, CMP #### [facility] ([id number]) [address], [address] [place] [address] RBC COUNT 4.00 X10E12/L Low 4.10-5.70 [facility] Comment on above: Performed By: #### C BCA, CMP #### [facility] ([id number]) [address], [address] [place] [address] WBC (Bld) [#/Vol] 5.5 10*3/uL Normal 4.0-11.0 [facility] Comment on above: Performed By: #### C BCA, CMP #### [facility] ([id number]) [address], [address] [place] [address] Glucose Glucometer (BldC) [M ass/Vol]on 06-08-2024 Glucose [Mass/Vol] 175 mg/dL High 65-99 [facility] Glucose [Mass/Vol] 239 mg/dL High 65-99 [facility] BASIC METABOLIC PANLon 06-07 Anion gap [Moles/Vol] 9 mmol/L Normal 5-15 [facility] Comment on above: Performed By: #### C BCA, CMP #### [facility] ([id number]) [address], [address] [place] [address] Calcium [Mass/Vol] 8.7 mg/dL Normal 8.5-10.5 [facility] Comment on above: Performed By: #### C BCA, CMP #### [facility] ([id number]) [address], [address] [place] [address] Chloride [Moles/Vol] 100 mmol/L Normal 98-109 [facility] Comment on above: Performed By: #### C BCA, CMP #### [facility] ([id number]) [address], [address] [place] [address] CO2 [Moles/Vol] 26 mmol/L Normal 22-32 [facility] Comment on above: Performed By: #### C BCA, CMP #### [facility] ([id number]) [address], [address] [place] [address] Creatinine [Mass/Vol] 0.63 mg/dL Normal 0.60-1.30 [facility] Comment on above: Result Comment: METH OD TRACEABLE TO IDMS STANDARD Performed By: #### C BCA, CMP #### [facility] ([id number]) [address], [address] [place] [address] eGFR (CKD-EPI) NON-RACE DEPENDENT >90 Normal >59 [facility] Comment on above: Result Comment: Reported eGFR is based on the CKD-EPI 2020 equation that does not use a race coefficient. Performed By: #### C BCA, CMP #### [facility] ([id number]) [address], [address] [place] [address] Glucose [Mass/Vol] 161 mg/dL High 65-99 [facility] Comment on above: Performed By: #### C BCA, CMP #### [facility] ([id number]) [address], [address] [place] [address] Potassium [Moles/Vol] 4.2 mmol/L Normal 3.5-5.0 [facility] Comment on above: Performed By: #### C BCA, CMP #### [facility] ([id number]) [address], [address] [place] [address] Sodium [Moles/Vol] 135 mmol/L Normal 134-146 [facility] Comment on above: Performed By: #### C BCA, CMP #### [facility] ([id number]) [address], [address] [place] [address] Urea nitrogen [Mass/Vol] 15 mg/dL Normal 5-27 [facility] Comment on above: Performed By: #### C BCA, CMP #### [facility] ([id number]) [address], [address] [place] [address] CBC AND AUTO DIFFon 12 24 ABSOLUTE BASOPHIL 0.1 X10E9/L Normal 0.0-0.2 [facility] Comment on above: Performed By: #### C BCA, CMP #### [facility] ([id number]) [address], [address] [place] [address] ABSOLUTE NEUTROPHIL 4.2 X10E9/L Normal 1.5-6.6 [facility] Comment on above: Performed By: #### C BCA, CMP #### [facility] ([id number]) [address], [address] [place] [address] Basophils/100 WBC (Bld) 1.0 % Normal [facility] Comment on above: Performed By: #### C BCA, CMP #### [facility] ([id number]) [address] [place] [address] Eosinophils (Bld) [#/Vol] 0.1 10*3/uL Normal 0.0-0.4 [facility] Comment on above: Performed By: #### C BCA, CMP #### [facility] ([id number]) [address] [place] [address] Eosinophils/100 WBC (Bld) 1.5 % Normal [facility] Comment on above: Performed By: #### C BCA, CMP #### [facility] ([id number]) [address] [place] [address] Erythrocyte distribution width (RBC) [Ratio] 15.7 % High 11.5-15.0 [facility] Comment on above: Performed By: #### C BCA, CMP #### [facility] ([id number]) [address] [place] [address] Hematocrit (Bld) [Volume fraction] 32.5 % Low 39-49 [facility] Comment on above: Performed By: #### C BCA, CMP #### [facility] ([id number]) [address], [address] [place] [address] Hemoglobin (Bld) [Mass/Vol] 10.8 g/dL Low 13.0-17.0 [facility] Comment on above: Performed By: #### C BCA, CMP #### [facility] ([id number]) [address], [address] [place] [address] Lymphocytes (Bld) [#/Vol] 1.2 10*3/uL Normal 1.0-3.5 [facility] Comment on above: Performed By: #### C BCA, CMP #### [facility] ([id number]) [address] [address] [place] [address] Lymphocytes/100 WBC (Bld) 19.6 % Normal [facility] Comment on above: Performed By: #### C BCA, CMP #### [facility] ([id number]) [address], [address] [place] [address] MCH (RBC) [Entitic mass] 26.8 pg Low 27-34 [facility] Comment on above: Performed By: #### C BCA, CMP #### [facility] ([id number]) [address] [place] [address] MCHC (RBC) [Mass/Vol] 33.3 g/dL Normal 32-36 [facility] Comment on above: Performed By: #### C BCA, CMP #### [facility] ([id number]) [address], [address] [place] [address] MCV (RBC) [Entitic vol] 81 fL Normal 80-[address] [facility] Comment on above: Performed By: #### C BCA, CMP #### [facility] ([id number]) [address], [address] [place] [address] Monocytes (Bld) [#/Vol] 0.4 10*3/uL Normal 0-0.9 [facility] Comment on above: Performed By: #### C BCA, CMP #### [facility] ([id number]) [address], [address] [place] [address] Monocytes/100 WBC (Bld) 6.8 % Normal [facility] Comment on above: Performed By: #### C BCA, CMP #### [facility] ([id number]) [address], [address] [place] [address] Neutrophils/100 WBC (Bld) 71.1 % Normal [facility] Comment on above: Performed By: #### C BCA, CMP #### [facility] ([id number]) [address], [address] [place] [address] Platelet mean volume (Bld) [Entitic vol] 7.0 fL Normal 7-12 [facility] Comment on above: Performed By: #### C ZACHARY, CMP #### [facility] ([id number]) [address] [address] [place] [address] Platelets (Bld) [#/Vol] 276 10*3/uL Normal 150-450 [facility] Comment on above: Performed By: #### C ZACHARY, CMP #### [facility] ([id number]) [address], [address] [place] [address] RBC COUNT 4.03 X10E12/L Low 4.10-5.70 [facility] Comment on above: Performed By: #### C BCA, CMP #### [facility] ([id number]) [address] [place] [address] WBC (Bld) [#/Vol] 5.9 10*3/uL Normal 4.0-11.0 [facility] Comment on above: Performed By: #### C BCA, CMP #### [facility] ([id number]) [address] [place] [address] Glucose Glucometer (BldC) [M ass/Vol]on 06-07-2024 Glucose [Mass/Vol] 187 mg/dL High 65-99 [facility] Glucose [Mass/Vol] 182 mg/dL High 65-99 [facility] Glucose [Mass/Vol] 233 mg/dL High 65-99 [facility] Glucose [Mass/Vol] 153 mg/dL High 65-99 [facility] BASIC METABOLIC PANLon 06-06 Anion gap [Moles/Vol] 10 mmol/L Normal 5-15 [facility] Comment on above: Performed By: #### C BCA, CMP #### [facility] ([id number]) [address], [address] [place] [address] Calcium [Mass/Vol] 8.5 mg/dL Normal 8.5-10.5 [facility] Comment on above: Performed By: #### C BCA, CMP #### [facility] ([id number]) [address], [address] [place] [address] Chloride [Moles/Vol] 103 mmol/L Normal 98-109 [facility] Comment on above: Performed By: #### C BCA, CMP #### [facility] ([id number]) [address], [address] [place] [address] CO2 [Moles/Vol] 22 mmol/L Normal 22-32 [facility] Comment on above: Performed By: #### C BCA, CMP #### [facility] ([id number]) [address] [place] [address] Creatinine [Mass/Vol] 0.55 mg/dL Low 0.60-1.30 [facility] Comment on above: Result Comment: METH OD TRACEABLE TO IDMS STANDARD Performed By: #### C BCA, CMP #### [facility] ([id number]) [address], [address] [place] [address] eGFR (CKD-EPI) NON-RACE DEPENDENT >90 Normal >59 [facility] Comment on above: Result Comment: Reported eGFR is based on the CKD-EPI 2020 equation that does not use a race coefficient. Performed By: #### C BCA, CMP #### [facility] ([id number]) [address] [place] [address] Glucose [Mass/Vol] 237 mg/dL High 65-99 [facility] Comment on above: Performed By: #### C BCA, CMP #### [facility] ([id number]) [address] [address] [place] [address] Potassium [Moles/Vol] 3.8 mmol/L Normal 3.5-5.0 [facility] Comment on above: Performed By: #### C BCA, CMP #### [facility] ([id number]) [address], [address] [place] [address] Sodium [Moles/Vol] 135 mmol/L Normal 134-146 [facility] Comment on above: Performed By: #### C BCA, CMP #### [facility] ([id number]) [address], [facility] [address] [place] [address] Urea nitrogen [Mass/Vol] 12 mg/dL Normal 5-27 [facility] Comment on above: Performed By: #### C BCA, CMP #### [facility] ([id number]) [address] [address] [place] [address] CBC AND AUTO DIFFon 06-06-20 24 ABSOLUTE BASOPHIL 0.1 X10E9/L Normal 0.0-0.2 [facility] Comment on above: Performed By: #### C BCA, CMP #### [facility] ([id number]) [address] [address] [place] [address] ABSOLUTE NEUTROPHIL 4.6 X10E9/L Normal 1.5-6.6 [facility] Comment on above: Performed By: #### C BCA, CMP #### [facility] ([id number]) [address], [address] [place] [address] Basophils/100 WBC (Bld) 1.0 % Normal [facility] Comment on above: Performed By: #### C BCA, CMP #### [facility] ([id number]) [address] [place] [address] Eosinophils (Bld) [#/Vol] 0.1 10*3/uL Normal 0.0-0.4 [facility] Comment on above: Performed By: #### C ZACHARY, CMP #### [facility] ([id number]) [address] [place] [address] Eosinophils/100 WBC (Bld) 1.8 % Normal [facility] Comment on above: Performed By: #### C ZACHARY, CMP #### [facility] ([id number]) [address], [address] [place] [address] Erythrocyte distribution width (RBC) [Ratio] 15.7 % High 11.5-15.0 [facility] Comment on above: Performed By: #### C ZACHARY, CMP #### [facility] ([id number]) [address] [place] [address] Hematocrit (Bld) [Volume fraction] 33.0 % Low 39-49 [facility] Comment on above: Performed By: #### C ZACHARY, CMP #### [facility] ([id number]) [address], [address] [place] [address] Hemoglobin (Bld) [Mass/Vol] 11.1 g/dL Low 13.0-17.0 [facility] Comment on above: Performed By: #### C BCA, CMP #### [facility] ([id number]) [address] [place] [address] Lymphocytes (Bld) [#/Vol] 1.1 10*3/uL Normal 1.0-3.5 [facility] Comment on above: Performed By: #### C BCA, CMP #### [facility] ([id number]) [address], [address] [place] [address] Lymphocytes/100 WBC (Bld) 17.4 % Normal [facility] Comment on above: Performed By: #### C BCA, CMP #### [facility] ([id number]) [address] [place] [address] MCH (RBC) [Entitic mass] 27.5 pg Normal 27-34 [facility] Comment on above: Performed By: #### C BCA, CMP #### [facility] ([id number]) [address] [place] [address] MCHC (RBC) [Mass/Vol] 33.8 g/dL Normal 32-36 [facility] Comment on above: Performed By: #### C BCA, CMP #### [facility] ([id number]) [address] [place] [address] MCV (RBC) [Entitic vol] 82 fL Normal 80-[address] [facility] Comment on above: Performed By: #### C BCA, CMP #### [facility] ([id number]) [address] [place] [address] Monocytes (Bld) [#/Vol] 0.4 10*3/uL Normal 0-0.9 [facility] Comment on above: Performed By: #### C BCA, CMP #### [facility] ([id number]) [address], [address] [place] [address] Monocytes/100 WBC (Bld) 5.8 % Normal [facility] Comment on above: Performed By: #### C BCA, CMP #### [facility] ([id number]) [address], [address] [place] [address] Neutrophils/100 WBC (Bld) 74.0 % Normal [facility] Comment on above: Performed By: #### C BCA, CMP #### [facility] ([id number]) [address], [address] [place] [address] Platelet mean volume (Bld) [Entitic vol] 6.9 fL Low 7-12 [facility] Comment on above: Performed By: #### C BCA, CMP #### [facility] ([id number]) [address], [address] [address] Platelets (Bld) [#/Vol] 272 10*3/uL Normal 150-450 [facility] Comment on above: Performed By: #### C BCA, CMP #### [facility] ([id number]) [address], [address] [address] RBC COUNT 4.05 X10E12/L Low 4.10-5.70 [facility] Comment on above: Performed By: #### C BCA, CMP #### [facility] ([id number]) [address], [address] [address] WBC (Bld) [#/Vol] 6.2 10*3/uL Normal 4.0-11.0 [facility] Comment on above: Performed By: #### C BCA, CMP #### [facility] ([id number]) [address], [address] [address] [address] BRAIN WO CONTon CT BRAIN WO [...] Beatty MD on 06/06/2024 5:57 AM Normal [facility] Glucose Glucometer (BldC) [M ass/Vol]on 06-06-2024 Glucose [Mass/Vol] 189 mg/dL High 65-99 [facility] Glucose [Mass/Vol] 140 mg/dL High 65-99 [facility] Glucose [Mass/Vol] 129 mg/dL High 65-99 [facility] Glucose [Mass/Vol] 231 mg/dL High 65-99 [facility] AMYLASEon 06-05-2024 Amylase [Catalytic activity/Vol] 30 U/L Normal 28-100 [facility] Comment on above: Performed By: #### C BCA, 84378-5, PINR, 58581-5, 1798-8, CMP, 3040-3, 5643-2 ####[facility] ([id number])[address], [address] [place] [id number] CBC AND AUTO DIFFon 06-05-20 24 ABSOLUTE BASOPHIL 0.1 X10E9/L Normal 0.0-0.2 [facility] Comment on above: Performed By: #### C BCA, 81601-0, PINR, 05139-1, 1798-8, CMP, 3040-3, 5643-2 ####[facility] ([id number])[address], [address] [place] [address] ABSOLUTE NEUTROPHIL 4.6 X10E9/L Normal 1.5-6.6 [facility] Comment on above: Performed By: #### C BCA, 09787-0, PINR, 94214-3, 1798-8, CMP, 3040-3, 5643-2 ####[facility] ([id number])[address] [address] [place] [address] Basophils/100 WBC (Bld) 0.9 % Normal P [facility] Comment on above: Performed By: #### C BCA, 08972-9, PINR, 19292-2, 1797-8, CMP, 3040-3, 5643-2 ####[facility] ([id number])[address] [address] [place] [address] [id number] Eosinophils (Bld) [#/Vol] 0.1 10*3/uL Normal 0.0-0.4 [facility] Comment on above: Performed By: #### C BCA, 88131-7, PINR, 39325-8, 1797-8, CMP, 3040-3, 5643-2 ####[facility] ([id number])[address] [address] [place] [address] Eosinophils/100 WBC (Bld) 2.0 % Normal [facility] Comment on above: Performed By: #### C BCA, 18319-8, PINR, 28196-3, 1797-8, CMP, 3040-3, 5643-2 ####[facility] ([id number])[address] [address] Erythrocyte distribution width (RBC) [Ratio] 15.8 % High 11.5-15.0 [facility] Comment on above: Performed By: #### C BCA, 16820-5, PINR, 22889-2, 1797-8, CMP, 3040-3, 5643-2 ####[facility] ([id number])[address] [address] [place] [address] Hematocrit (Bld) [Volume fraction] 34.5 % Low 39-49 [facility] Comment on above: Performed By: #### C BCA, 99253-7, PINR, 01004-2, 1798-8, CMP, 3040-3, 5643-2 ####[facility] ([id number])[address], [address] [place] [address] Hemoglobin (Bld) [Mass/Vol] 12.0 g/dL Low 13.0-17.0 [facility] Comment on above: Performed By: #### C BCA, 72345-0, PINR, 64629-9, 1798-8, CMP, 3040-3, 5643-2 ####[facility] ([id number])[address] [address] [place] [address] Lymphocytes (Bld) [#/Vol] 1.2 10*3/uL Normal 1.0-3.5 [facility] Comment on above: Performed By: #### C BCA, 91891-3, PINR, 38022-0, 8-8, CMP, 3040-3, 5643-2 ####[facility] ([id number])[address] [address] [place] [address]806 Lymphocytes/100 WBC (Bld) 19.6 % Normal [facility] Comment on above: Performed By: #### C BCA, 18750-6, PINR, 63948-3, 1798-8, CMP, 3040-3, 5643-2 ####[facility] ([id number])[address] [address] [place] [address]349 MCH (RBC) [Entitic mass] 27.7 pg Normal 27-34 [facility] Comment on above: Performed By: #### C BCA, 48711-0, PINR, 31158-6, 1798-8, CMP, 3040-3, 5643-2 ####[facility] ([id number])[address], [address] [place] [address]17 MCHC (RBC) [Mass/Vol] 34.9 g/dL Normal 32-36 [facility] Comment on above: Performed By: #### C BCA, 87277-6, PINR, 48194-2, 1798-8, CMP, 3040-3, 5643-2 ####[facility] ([id number])[address], [address] [address] MCV (RBC) [Entitic vol] 79 fL Low 80-100 [facility] Comment on above: Performed By: #### C BCA, 76996-5, PINR, 58582-4, 8-8, CMP, 3040-3, 5643-2 ####[facility] ([id number])[address], [address] [place] [address] Monocytes (Bld) [#/Vol] 0.4 10*3/uL Normal 0-0.9 [facility] Comment on above: Performed By: #### C BCA, 08276-5, PINR, 67014-1, 1797-8, CMP, 3040-3, 5643-2 ####[facility] ([id number])[address], [address] [address] Monocytes/100 WBC (Bld) 5.6 % Normal [facility] Comment on above: Performed By: #### C BCA, 78555-2, PINR, 87827-2, 8-8, CMP, 3040-3, 5643-2 ####[facility] ([id number])[address], [address] [place] [address]906 Neutrophils/100 WBC (Bld) 71.9 % Normal [facility] Comment on above: Performed By: #### C BCA, 16543-3, PINR, 41786-0, 1798-8, CMP, 3040-3, 5643-2 ####[facility] ([id number])[address], [address] [address] Platelet mean volume (Bld) [Entitic vol] 6.8 fL Low 7-12 [facility] Comment on above: Performed By: #### C BCA, 16424-4, PINR, 61540-4, 1798-8, CMP, 3040-3, 5643-2 ####[facility] ([id number])[address], [address] [place] [address]43 Platelets (Bld) [#/Vol] 299 10*3/uL Normal 150-450 [facility] Comment on above: Performed By: #### C BCA, 82321-5, PINR, 04162-6, 1798-8, CMP, 3040-3, 5643-2 ####[facility] ([id number])[address], [address] [place] [address] 48046 RBC COUNT 4.35 X10E12/L Normal 4.10-5.70 [facility] Comment on above: Performed By: #### C BCA, 24926-7, PINR, 22300-5, 1798-8, CMP, 3040-3, 5643-2 ####[facility] ([id number])[address], [address] [place] [address]853 WBC (Bld) [#/Vol] 6.4 10*3/uL Normal 4.0-11.0 [facility] Comment on above: Performed By: #### C BCA, 02980-9, PINR, 38621-9, 1798-8, CMP, 3040-3, 5643-2 ####[facility] ([id number])[address], [address] [place] [address] COMPREHENSIVE METABOLIC PANE [place] 06-05-2024 Albumin [Mass/Vol] 3.9 g/dL Normal 3.2-5.3 [facility] Comment on above: Performed By: #### C BCA, CMP #### [facility] ([id number]) [address], [address] [place] [address] ALP [Catalytic activity/Vol] 94 U/L Normal 39-130 [facility] Comment on above: Performed By: #### C BCA, CMP #### [facility] ([id number]) [address], [address] [place] [address] ALT [Catalytic activity/Vol] 17 U/L Normal 0-40 [facility] Comment on above: Performed By: #### C BCA, CMP #### [facility] ([id number]) [address], [address] [place] [address] Anion gap [Moles/Vol] 11 mmol/L Normal 5-15 [facility] Comment on above: Performed By: #### C BCA, CMP #### [facility] ([id number]) [address], [address] [place] [address] AST [Catalytic activity/Vol] 13 U/L Normal 0-41 [facility] Comment on above: Performed By: #### C BCA, CMP #### [facility] ([id number]) [address], [address] [place] [address] Bilirubin [Mass/Vol] 0.5 mg/dL Normal 0.3-1.2 [facility] Comment on above: Performed By: #### C BCA, CMP #### [facility] ([id number]) [address], [address] [place] [address] Calcium [Mass/Vol] 8.8 mg/dL Normal 8.5-10.5 [facility] Comment on above: Performed By: #### C BCA, CMP #### [facility] ([id number]) [address], [address] [place] [address] Chloride [Moles/Vol] 101 mmol/L Normal 98-109 [facility] Comment on above: Performed By: #### C BCA, CMP #### [facility] ([id number]) [address], [address] [place] [address] CO2 [Moles/Vol] 25 mmol/L Normal 22-32 [facility] Comment on above: Performed By: #### C BCA, CMP #### [facility] ([id number]) [address], [address] [place] [address] Creatinine [Mass/Vol] 0.54 mg/dL Low 0.60-1.30 [facility] Comment on above: Result Comment: METH OD TRACEABLE TO IDMS STANDARD Performed By: #### C BCA, CMP #### [facility] ([id number]) [address] [address] [place] [address] eGFR (CKD-EPI) NON-RACE DEPENDENT >90 Normal >59 [facility] Comment on above: Result Comment: Reported eGFR is based on the CKD-EPI 2020 equation that does not use a race coefficient. Performed By: #### C BCA, CMP #### [facility] ([id number]) [address] [address] [place] [address] Glucose [Mass/Vol] 146 mg/dL High 65-99 [facility] Comment on above: Performed By: #### C BCA, CMP #### [facility] ([id number]) [address] [address] [place] [address] Potassium [Moles/Vol] 3.9 mmol/L Normal 3.5-5.0 [facility] Comment on above: Performed By: #### C BCA, CMP #### [facility] ([id number]) [address] [address] [place] [address] Protein [Mass/Vol] 6.3 g/dL Normal 6.0-8.0 [facility] Comment on above: Performed By: #### C BCA, CMP #### [facility] ([id number]) [address] [address] [place] [address] Sodium [Moles/Vol] 137 mmol/L Normal 134-146 [facility] Comment on above: Performed By: #### C BCA, CMP #### [facility] ([id number]) [address], [address] [place] [address] Urea nitrogen [Mass/Vol] 13 mg/dL Normal 5-27 [facility] Comment on above: Performed By: #### C BCA, CMP #### [facility] ([id number]) [address], [address] [place] [address] DRUG SCREEN, URINEon 024 AMPHETAMINE/METHAMP Negative Normal NEG [facility] Comment on above: Result Comment: AMPH /METH screening cut off = 1000 ng/mL Performed By: #### C BCA, CMP #### [facility] ([id number]) [address], [address] [place] [address] BARBITURATES Negative Normal NEG [facility] Comment on above: Result Comment: Elsie iturates screening cut off value = 200 ng/mL Performed By: #### C BCA, CMP #### [facility] ([id number]) [address], [address] [place] [address] BENZODIAZEPINES Negative Normal NEG [facility] Comment on above: Result Comment: James odiazepines screening cut off value = 200 ng/mL Performed By: #### C BCA, CMP #### [facility] ([id number]) [address], [address] [place] [address] CANNABINOIDS Negative Normal NEG [facility] Comment on above: Result Comment: Shawn abinoids/THC screening cut off value = 50 ng/mL Performed By: #### C BCA, CMP #### [facility] ([id number]) [address], [address] [place] [address] COCAINE METABOLITE Negative Normal NEG [facility] Comment on above: Result Comment: Coca ine screening cut off value = 300 ng/mL Performed By: #### C BCA, CMP #### [facility] ([id number]) [address], [address] [place] [address] ECSTASY Negative Normal NEG [facility] Comment on above: Result Comment: Ecst asy screening cut off value = 500 ng/mL This report is intended for use in clinical monitoring or management of patients. Performed By: #### C BCA, CMP #### [facility] ([id number]) [address], [address] [place] [address] METHADONE Negative Normal NEG [facility] Comment on above: Result Comment: Meth adone screening cut off value = 300 ng/mL. Performed By: #### C BCA, CMP #### [facility] ([id number]) [address], [address] [place] [address] OPIATES Negative Normal NEG [facility] Comment on above: Result Comment: Opia yanira screening cut off value = 300 ng/mL NOTE: This test is used for the detection of codeine, hydrocodone (>1000 ng/mL), morphine and hydromorphone (>900 ng/mL) in urine. Performed By: #### C BCA, CMP #### [facility] ([id number]) [address], [address] [place] [address] OXYCODONE Negative Normal NEG [facility] Comment on above: Result Comment: Oxyc odone screening cut off value = 300 ng/mL NOTE: This test is used for the detection of oxycodone and oxymorphone in urine. Performed By: #### C BCA, CMP #### [facility] ([id number]) [address], [address] [place] [address] PHENCYCLIDINE Negative Normal NEG [facility] Comment on above: Result Comment: Phen cyclidine screening cut off value = 25 ng/mL Performed By: #### C BCA, CMP #### [facility] ([id number]) [address], [address] [place] [address] ETHANOLon 06-05-2024 Ethanol [Mass/Vol] mg/dL Normal 0.00-0.08 [facility] Comment on above: Result Comment: This report is intended for use in clinical monitoring or management of patients. Performed By: #### C ZACHARY, CMP #### [facility] ([id number]) [address], [address] [place] [address] Fibrinogen Coagulation.deriv ed (PPP) [Mass/Vol]on 06-05-2024 FIBRINOGEN 459 mg/dL Normal 190-480 [facility] Comment on above: Performed By: #### C BCA, 23751-4, PINR, 30831-7, 1798-8, CMP, 3040-3, 5643-2 ####[facility] ([id number])[address], [address] [place] [address] Glucose Glucometer (BldC) [M ass/Vol]on 06-05-2024 Glucose [Mass/Vol] 154 mg/dL High 65-99 [facility] LIPASEon 06-05-2024 Lipase [Catalytic activity/Vol] 35 U/L Normal 11-82 [facility] Comment on above: Performed By: #### C ZACHARY, CMP #### [facility] ([id number]) [address], [address] [place] [address] PROTIME AND INRon 06-05-2024 INR Coag (PPP) [Relative time] 1.1 {INR} Normal 0.8-1.1 [facility] Comment on above: Performed By: #### C BCA, 08566-9, PINR, 51030-4, 8-8, CMP, 3040-3, 5643-2 ####[facility] ([id number])[address], [address] [place] [address]62 PT Coag (PPP) [Time] 12.9 s Normal 9.8-13.2 [facility] Comment on above: Performed By: #### C BCA, 18753-8, PINR, 92174-0, 1798-8, CMP, 3040-3, 5643-2 ####[facility] ([id number])[address], [address] [place] [address] URINALYSISon 06-05-2024 Bilirubin Ql (U) Negative Normal NEG [facility] Comment on above: Performed By: #### C BCA, CMP #### [facility] ([id number]) [address], [address] [place] [address] BLOOD/HGB MODERATE Abnormal NEG [facility] Comment on above: Performed By: #### C BCA, CMP #### [facility] ([id number]) [address], [address] [place] [address] Color (U) YELLOW Normal YELLOW [facility] Comment on above: Performed By: #### C BCA, CMP #### [facility] ([id number]) [address], [address] [place] [address] Glucose Ql (U) Negative Normal NEG [facility] Comment on above: Performed By: #### C BCA, CMP #### [facility] ([id number]) [address], [address] [place] [address] Ketones Ql (U) Negative Normal NEG [facility] Comment on above: Performed By: #### C BCA, CMP #### [facility] ([id number]) [address], [address] [place] [address] Leukocyte esterase Test strip Ql (U) MODERATE Abnormal NEG [facility] Comment on above: Performed By: #### C BCA, CMP #### [facility] ([id number]) [address] [place] [address] MUCOUS PRESENT Abnormal NONE [facility] Comment on above: Performed By: #### C BCA, CMP #### [facility] ([id number]) [address], [address] [place] [address] Nitrite Ql (U) Negative Normal NEG [facility] Comment on above: Performed By: #### C BCA, CMP #### [facility] ([id number]) [address], [address] [place] [address] pH (U) 6.5 [pH] Normal 5.0-8.5 [facility] Comment on above: Performed By: #### C BCA, CMP #### [facility] ([id number]) [address], [address] [place] [address] Protein Ql (U) 30 mg/dL Abnormal NEG [facility] Comment on above: Performed By: #### C ZACHARY, CMP #### [facility] ([id number]) [address], [address] [address] R.B.CELLS 35 /hpf High 0-5 [facility] Comment on above: Performed By: #### C BCA, CMP #### [facility] ([id number]) [address], [address] [place] [address] Specific gravity (U) [Rel density] 1.020 Normal 1.003-1.035 [facility] Comment on above: Performed By: #### C ZACHARY, CMP #### [facility] ([id number]) [address], [address] [place] [address] TURBIDITY CLEAR Normal CLEAR [facility] Comment on above: Performed By: #### C BCA, CMP #### [facility] ([id number]) [address], [address] [place] [address] Urinalysis dipstick W Reflex Microscopic panel (U) URINE RECEIVED WITHOUT PRESERVATIVE-DELAYS IN TRANSPORT MAY AFFECT RESULTS.INTERPRET WITH CAUTION AND CLINICAL CORRELATION IS RECOMMENDED. Normal [facility] Comment on above: Performed By: #### C BCA, CMP #### [facility] ([id number]) [address], [address] [place] [address] Urobilinogen Qn (U) 3 {Marley'U}/dL High <1.1 [facility] Comment on above: Performed By: #### C ZACHARY, CMP #### [facility] ([id number]) [address], [address] [place] [address] W.B.CELLS 37 /hpf High 0-5 [facility] Comment on above: Performed By: #### C BCA, CMP #### [facility] ([id number]) [address], [address] [place] [address] XR CHEST 1 VWon 06-05-2024 XR CHEST [...] Espino MD on 06/05/2024 10:48 PM Normal [facility] aPTT Coag (PPP) [Time]on aPTT Coag (Bld) [Time] 32 s Normal 26-37 [facility] Comment on above: Performed By: #### C BCA, 67416-9, PINR, 14274-0, 1798-8, CMP, 3040-3, 5643-2 ####[facility] ([id number])[address] [address] BASIC METABOLIC PANLon 06-01 Anion gap [Moles/Vol] 10 mmol/L Normal 5-15 [facility] Comment on above: Performed By: #### P INR, 25895-0, 46964-5, CBCA, 52258-7, CMP, 4548-4, 6873-4 #### [facility] ([id number]) [address] [place] [address], [place] [address] #### HA1C #### [facility] ([id number]) [address], [address] [place] [address] Calcium [Mass/Vol] 8.7 mg/dL Normal 8.5-10.5 [facility] Comment on above: Performed By: #### P INR, 47003-0, 36421-7, CBCA, 17021-1, CMP, 4548-4, 6873-4 #### [facility] ([id number]) [address] [place] [address] #### HA1C #### [facility] ([id number]) [address] [facility] [place] [address] Chloride [Moles/Vol] 99 mmol/L Normal 98-109 [facility] Comment on above: Performed By: #### P INR, 93971-6, 42507-2, CBCA, 53683-3, CMP, 4548-4, 6873-4 #### [facility] ([id number]) [address] [place] [address] #### HA1C #### [facility] ([id number]) [address], [address] [place] [address] CO2 [Moles/Vol] 23 mmol/L Normal 22-32 [facility] Comment on above: Performed By: #### P INR, 24622-8, 52635-4, CBCA, 66773-5, CMP, 4548-4, 6873-4 #### [facility] ([id number]) [address] [place] [address] #### HA1C #### [facility] ([id number]) [address], [address] [place] [address] Creatinine [Mass/Vol] 0.59 mg/dL Low 0.70-1.20 [facility] Comment on above: Result Comment: METH OD TRACEABLE TO IDMS STANDARD Performed By: #### P INR, 70698-4, 67281-8, CBCA, 08877-8, CMP, 4548-4, 6873-4 #### [facility] ([id number]) [address] [place] [address] #### HA1C #### [facility] ([id number]) [address] [facility] [place] [address] eGFR (CKD-EPI) NON-RACE DEPENDENT >90 Normal >59 [facility] Comment on above: Result Comment: Reported eGFR is based on the CKD-EPI 2020 equation that does not use a race coefficient. Performed By: #### P INR, 53767-5, 64882-1, CBCA, 81152-0, CMP, 4548-4, 6873-4 #### [facility] ([id number]) [address] [place] [address] #### HA1C #### [facility] ([id number]) [address] [facility] [place] [address] Glucose [Mass/Vol] 163 mg/dL High 65-99 [facility] Comment on above: Performed By: #### P INR, 09528-8, 65825-8, CBCA, 38757-6, CMP, 4548-4, 6873-4 #### [facility] ([id number]) [address] [place] [address] #### HA1C #### [facility] ([id number]) [address] [facility] [place] [address] Potassium [Moles/Vol] 3.9 mmol/L Normal 3.5-5.0 [facility] Comment on above: Performed By: #### P INR, 17306-9, 03177-2, CBCA, 32610-9, CMP, 4548-4, 6873-4 #### [facility] ([id number]) [address] [place] [address] #### HA1C #### [facility] ([id number]) [address] [place] [address] Sodium [Moles/Vol] 132 mmol/L Low 134-146 [facility] Comment on above: Performed By: #### P INR, 18098-4, 12665-2, CBCA, 80827-0, CMP, 4548-4, 6873-4 #### [facility] ([id number]) [address] [place] [address] #### HA1C #### [facility] ([id number]) [address], [facility] [address] [place] [address] Urea nitrogen [Mass/Vol] 15 mg/dL Normal 5-27 [facility] Comment on above: Performed By: #### P INR, 91341-0, 76403-0, CBCA, 65990-8, CMP, 4548-4, 6873-4 #### [facility] ([id number]) [address] [place] [id number] #### HA1C #### [facility] ([id number]) [address], [address] [place] [address] CBC AND AUTO DIFFon 06-01-20 24 ABSOLUTE BASOPHIL 0.0 X10E9/L Normal 0.0-0.2 [facility] Comment on above: Performed By: #### P INR, 36820-2, 96170-5, CBCA, 49059-6, CMP, 4548-4, 6873-4 #### [facility] ([id number]) [address] [place] [id number] #### HA1C #### [facility] ([id number]) [address], [address] [place] [address] ABSOLUTE NEUTROPHIL 2.5 X10E9/L Normal 1.5-6.6 [facility] Comment on above: Performed By: #### P INR, 12447-0, 63328-6, CBCA, 65088-4, CMP, 4548-4, 6873-4 #### [facility] ([id number]) [address] [place] [id number] #### HA1C #### [facility] ([id number]) [address], [address] [place] [address] Basophils/100 WBC (Bld) 1.0 % Normal P [facility] Comment on above: Performed By: #### P INR, 99373-0, 19269-1, CBCA, 31533-1, CMP, 4548-4, 6873-4 #### [facility] ([id number]) [address] [place] [id number] #### HA1C #### [facility] ([id number]) [address] [facility] [facility] [place] [address] Eosinophils (Bld) [#/Vol] 0.3 10*3/uL Normal 0.0-0.4 [facility] Comment on above: Performed By: #### P INR, 70027-6, 85747-4, CBCA, 93872-2, CMP, 4548-4, 6873-4 #### [facility] ([id number]) [address] [place] [address] #### HA1C #### [facility] ([id number]) [address], [address] [place] [address] Eosinophils/100 WBC (Bld) 6.5 % Normal [facility] Comment on above: Performed By: #### P INR, 36804-0, 75002-3, CBCA, 15901-3, CMP, 4548-4, 6873-4 #### [facility] ([id number]) [address] [place] [address] #### HA1C #### [facility] ([id number]) [address], [address] [place] [address] Erythrocyte distribution width (RBC) [Ratio] 15.7 % High 11.5-15.0 [facility] Comment on above: Performed By: #### P INR, 31462-3, 17181-9, CBCA, 57468-7, CMP, 4548-4, 6873-4 #### [facility] ([id number]) [address] [place] [address] #### HA1C #### [facility] ([id number]) [address], [address] [place] [phone] Hematocrit (Bld) [Volume fraction] 34.2 % Low 39-49 [facility] Comment on above: Performed By: #### P INR, 80449-9, 12622-8, CBCA, 89004-2, CMP, 4548-4, 6873-4 #### [facility] ([id number]) [address] [place] [address] 90247 #### HA1C #### [facility] ([id number]) [address], [address] [place] [address] Hemoglobin (Bld) [Mass/Vol] 11.6 g/dL Low 13.0-17.0 [facility] Comment on above: Performed By: #### P INR, 57691-4, 29112-7, CBCA, 46866-5, CMP, 4548-4, 6873-4 #### [facility] ([id number]) [address] [place] [address] 39157 #### HA1C #### [facility] ([id number]) [address], [address] [place] [address] Lymphocytes (Bld) [#/Vol] 1.6 10*3/uL Normal 1.0-3.5 [facility] Comment on above: Performed By: #### P INR, 90607-9, 87553-4, CBCA, 19253-6, CMP, 4548-4, 6873-4 #### [facility] ([id number]) [address] [place] [address] 10039 #### HA1C #### [facility] ([id number]) [address], [address] [place] [address] Lymphocytes/100 WBC (Bld) 33.6 % Normal [facility] Comment on above: Performed By: #### P INR, 66787-7, 28855-0, CBCA, 96356-1, CMP, 4548-4, 6873-4 #### [facility] ([id number]) [address] [place] [address] 99073 #### HA1C #### [facility] ([id number]) [address] [facility], [address] [place] [address] MCH (RBC) [Entitic mass] 27.2 pg Normal 27-34 [facility] Comment on above: Performed By: #### P INR, 54240-8, 60599-6, CBCA, 13664-5, CMP, 4548-4, 6873-4 #### [facility] ([id number]) [address] [place] [address] 37292 #### HA1C #### [facility] ([id number]) [address], [address] [place] [address] MCHC (RBC) [Mass/Vol] 33.9 g/dL Normal 32-36 [facility] Comment on above: Performed By: #### P INR, 57721-6, 67148-7, CBCA, 65844-7, CMP, 4548-4, 6873-4 #### [facility] ([id number]) [address] [place] [address] 46537 #### HA1C #### [facility] ([id number]) [address], [address] [place] [address] MCV (RBC) [Entitic vol] 80 fL Normal 80-100 [facility] Comment on above: Performed By: #### P INR, 64611-8, 50469-6, CBCA, 65571-4, CMP, 4548-4, 6873-4 #### [facility] ([id number]) [address] [place] [address] 93357 #### HA1C #### [facility] ([id number]) [address], [address] [place] [address] Monocytes (Bld) [#/Vol] 0.4 10*3/uL Normal 0-0.9 [facility] Comment on above: Performed By: #### P INR, 25462-0, 03381-1, CBCA, 82687-6, CMP, 4548-4, 6873-4 #### [facility] ([id number]) [address] [place] [address] 07501 #### HA1C #### [facility] ([id number]) [address], [address] [place] [address] Monocytes/100 WBC (Bld) 7.6 % Normal [facility] Comment on above: Performed By: #### P INR, 48568-1, 58675-9, CBCA, 81434-7, CMP, 4548-4, 6873-4 #### [facility] ([id number]) [address] [place] [address] 46980 #### HA1C #### [facility] ([id number]) [address], [address] [place] [address] Neutrophils/100 WBC (Bld) 51.3 % Normal [facility] Comment on above: Performed By: #### P INR, 52199-0, 58920-1, CBCA, 47917-8, CMP, 4548-4, 6873-4 #### [facility] ([id number]) [address] [place] [address] 76773 #### HA1C #### [facility] ([id number]) [address], [address] [place] [address] Platelet mean volume (Bld) [Entitic vol] 6.8 fL Low 7-12 [facility] Comment on above: Performed By: #### P INR, 29960-8, 87424-7, CBCA, 52534-9, CMP, 4548-4, 6873-4 #### [facility] ([id number]) [address] [place] [address] 33996 #### HA1C #### [facility] ([id number]) [address], [address] [place] [address] Platelets (Bld) [#/Vol] 300 10*3/uL Normal 150-450 [facility] Comment on above: Performed By: #### P INR, 80659-0, 65936-6, CBCA, 88028-4, CMP, 4548-4, 6873-4 #### [facility] ([id number]) [address] [place] [address] 22926 #### HA1C #### [facility] ([id number]) [address], [address] [place] [address] RBC COUNT 4.25 X10E12/L Normal 4.10-5.70 [facility] Comment on above: Performed By: #### P INR, 89392-2, 87668-3, CBCA, 64184-3, CMP, 4548-4, 6873-4 #### [facility] ([id number]) [address] [place] [address] 50581 #### HA1C #### [facility] ([id number]) [address], [address] [place] [address] WBC (Bld) [#/Vol] 4.9 10*3/uL Normal 4.0-11.0 [facility] Comment on above: Performed By: #### P INR, 04156-8, 30267-4, CBCA, 16100-3, CMP, 4548-4, 6873-4 #### [facility] ([id number]) [address] [place] [address] 27197 #### HA1C #### [facility] ([id number]) [address], [address] [place] [address] Glucose Glucometer (BldC) [M ass/Vol]on 06-01-2024 Glucose [Mass/Vol] 143 mg/dL High 65-99 [facility] BASIC METABOLIC PANLon 05-31 Anion gap [Moles/Vol] 8 mmol/L Normal 5-15 [facility] Comment on above: Performed By: #### P INR, 21026-2, 21485-2, CBCA, 83803-2, CMP, 4548-4, 6873-4 #### [facility] ([id number]) [address] [place] [address] 77019 #### HA1C #### [facility] ([id number]) [address], [address] [place] [address] Calcium [Mass/Vol] 8.5 mg/dL Normal 8.5-10.5 [facility] Comment on above: Performed By: #### P INR, 91187-5, 64415-7, CBCA, 88581-0, CMP, 4548-4, 6873-4 #### [facility] ([id number]) [address] [place] [address] 73296 #### HA1C #### [facility] ([id number]) [address], [address] [place] [address] Chloride [Moles/Vol] 100 mmol/L Normal 98-109 [facility] Comment on above: Performed By: #### P INR, 01995-8, 17794-7, CBCA, 24475-1, CMP, 4548-4, 6873-4 #### [facility] ([id number]) [address] [place] [address] 55522 #### HA1C #### [facility] ([id number]) [address] [facility], [address] [place] [address] CO2 [Moles/Vol] 24 mmol/L Normal 22-32 [facility] Comment on above: Performed By: #### P INR, 94317-4, 68614-2, CBCA, 64033-8, CMP, 4548-4, 6873-4 #### [facility] ([id number]) [address] [place] [address] 80895 #### HA1C #### [facility] ([id number]) [address] [facility], [facility] [address] [place] [address] Creatinine [Mass/Vol] 0.69 mg/dL Low 0.70-1.20 [facility] Comment on above: Result Comment: METH OD TRACEABLE TO IDMS STANDARD Performed By: #### P INR, 75815-7, 78143-0, CBCA, 43309-1, CMP, 4548-4, 6873-4 #### [facility] ([id number]) [address] [place] [address] 53425 #### HA1C #### [facility] ([id number]) [address] [facility], [address] [place] [address] eGFR (CKD-EPI) NON-RACE DEPENDENT >90 Normal >59 [facility] Comment on above: Result Comment: Reported eGFR is based on the CKD-EPI 2020 equation that does not use a race coefficient. Performed By: #### P INR, 01860-9, 59577-1, CBCA, 63523-8, CMP, 4548-4, 6873-4 #### [facility] ([id number]) [address] [place] [address] 35922 #### HA1C #### [facility] ([id number]) [address], [address] [place] [address] Glucose [Mass/Vol] 139 mg/dL High 65-99 [facility] Comment on above: Performed By: #### P INR, 76417-4, 59743-6, CBCA, 94761-7, CMP, 4548-4, 6873-4 #### [facility] ([id number]) [address] [place] [address] 96778 #### HA1C #### [facility] ([id number]) [address], [address] [place] [address] Potassium [Moles/Vol] 3.7 mmol/L Normal 3.5-5.0 [facility] Comment on above: Performed By: #### P INR, 19605-6, 15117-6, CBCA, 10867-5, CMP, 4548-4, 6873-4 #### [facility] ([id number]) [address] [place] [address] 84597 #### HA1C #### [facility] ([id number]) [address], [address] [place] [address] Sodium [Moles/Vol] 132 mmol/L Low 134-146 [facility] Comment on above: Performed By: #### P INR, 83927-9, 11451-2, CBCA, 87183-2, CMP, 4548-4, 6873-4 #### [facility] ([id number]) [address] [place] [address] 65369 #### HA1C #### [facility] ([id number]) [address], [address] [place] [address] Urea nitrogen [Mass/Vol] 16 mg/dL Normal 5-27 [facility] Comment on above: Performed By: #### P INR, 96694-1, 96052-1, CBCA, 38154-2, CMP, 4548-4, 6873-4 #### [facility] ([id number]) [address] [place] [address] 18853 #### HA1C #### [facility] ([id number]) [address] [facility], [address] [place] [address] CBC AND AUTO DIFFon 05-31-20 24 ABSOLUTE BASOPHIL 0.1 X10E9/L Normal 0.0-0.2 [facility] Comment on above: Performed By: #### P INR, 24330-8, 58781-7, CBCA, 35803-0, CMP, 4548-4, 6873-4 #### [facility] ([id number]) [address] [place] [address] 35873 #### HA1C #### [facility] ([id number]) [address] [facility], [address] [place] [address] ABSOLUTE NEUTROPHIL 3.4 X10E9/L Normal 1.5-6.6 [facility] Comment on above: Performed By: #### P INR, 84625-7, 99460-3, CBCA, 10124-8, CMP, 4548-4, 6873-4 #### [facility] ([id number]) [address] [place] [address] 18474 #### HA1C #### [facility] ([id number]) [address] [facility], [address] [place] [address] Basophils/100 WBC (Bld) 1.1 % Normal [facility] Comment on above: Performed By: #### P INR, 04138-7, 87321-7, CBCA, 97369-5, CMP, 4548-4, 6873-4 #### [facility] ([id number]) [address] [place] [address] 64845 #### HA1C #### [facility] ([id number]) [address], [address] [place] [address] Eosinophils (Bld) [#/Vol] 0.4 10*3/uL Normal 0.0-0.4 [facility] Comment on above: Performed By: #### P INR, 15958-1, 07143-1, CBCA, 67725-4, CMP, 4548-4, 6873-4 #### [facility] ([id number]) [address] [place] [address] 24687 #### HA1C #### [facility] ([id number]) [address], [address] [place] [address] Eosinophils/100 WBC (Bld) 7.9 % Normal [facility] Comment on above: Performed By: #### P INR, 90545-6, 84002-6, CBCA, 29338-5, CMP, 4548-4, 6873-4 #### [facility] ([id number]) [address] [place] [address] 70983 #### HA1C #### [facility] ([id number]) [address], [address] [place] [address] Erythrocyte distribution width (RBC) [Ratio] 15.1 % High 11.5-15.0 [facility] Comment on above: Performed By: #### P INR, 42850-2, 40393-8, CBCA, 05561-4, CMP, 4548-4, 6873-4 #### [facility] ([id number]) [address] [place] [address] 55183 #### HA1C #### [facility] ([id number]) [address], [address] [place] [address] Hematocrit (Bld) [Volume fraction] 37.2 % Low 39-49 [facility] Comment on above: Performed By: #### P INR, 19363-9, 19994-1, CBCA, 95310-2, CMP, 4548-4, 6873-4 #### [facility] ([id number]) [address] [place] [address] 94386 #### HA1C #### [facility] ([id number]) [address], [address] [place] [address] Hemoglobin (Bld) [Mass/Vol] 12.5 g/dL Low 13.0-17.0 [facility] Comment on above: Performed By: #### P INR, 15987-8, 49820-1, CBCA, 40135-2, CMP, 4548-4, 6873-4 #### [facility] ([id number]) [address] [place] [address] 13565 #### HA1C #### [facility] ([id number]) [address], [address] [place] [address] Lymphocytes (Bld) [#/Vol] 1.2 10*3/uL Normal 1.0-3.5 [facility] Comment on above: Performed By: #### P INR, 14176-3, 92631-4, CBCA, 49041-8, CMP, 4548-4, 6873-4 #### [facility] ([id number]) [address] [place] [address] 72480 #### HA1C #### [facility] ([id number]) [address], [address] [place] [address] Lymphocytes/100 WBC (Bld) 21.2 % Normal [facility] Comment on above: Performed By: #### P INR, 40803-2, 90581-4, CBCA, 11302-0, CMP, 4548-4, 6873-4 #### [facility] ([id number]) [address] [place] [address] 30400 #### HA1C #### [facility] ([id number]) [address], [address] [place] [address] MCH (RBC) [Entitic mass] 27.4 pg Normal 27-34 [facility] Comment on above: Performed By: #### P INR, 76961-5, 40639-4, CBCA, 74643-5, CMP, 4548-4, 6873-4 #### [facility] ([id number]) [address] [place] [address] 47971 #### HA1C #### [facility] ([id number]) [address] [facility] [place] [address] MCHC (RBC) [Mass/Vol] 33.7 g/dL Normal 32-36 [facility] Comment on above: Performed By: #### P INR, 28395-8, 97640-1, CBCA, 71061-7, CMP, 4548-4, 6873-4 #### [facility] ([id number]) [address] [place] [address] 82556 #### HA1C #### [facility] ([id number]) [address], [address] [place] [address] MCV (RBC) [Entitic vol] 81 fL Normal 80-[address] [facility] Comment on above: Performed By: #### P INR, 22966-2, 23130-0, CBCA, 64785-2, CMP, 4548-4, 6873-4 #### [facility] ([id number]) [address] [place] [address] 87506 #### HA1C #### [facility] ([id number]) [address], [address] [place] [address] Monocytes (Bld) [#/Vol] 0.4 10*3/uL Normal 0-0.9 [facility] Comment on above: Performed By: #### P INR, 17123-1, 91529-4, CBCA, 72843-3, CMP, 4548-4, 6873-4 #### [facility] ([id number]) [address] [place] [address] 32499 #### HA1C #### [facility] ([id number]) [address] [facility] [place] [address] Monocytes/100 WBC (Bld) 6.7 % Normal [facility] Comment on above: Performed By: #### P INR, 36682-4, 38587-9, CBCA, 93434-9, CMP, 4548-4, 6873-4 #### [facility] ([id number]) [address] [place] [address] 40754 #### HA1C #### [facility] ([id number]) [address], [address] [place] [address] Neutrophils/100 WBC (Bld) 63.1 % Normal [facility] Comment on above: Performed By: #### P INR, 31216-4, 51270-3, CBCA, 60032-6, CMP, 4548-4, 6873-4 #### [facility] ([id number]) [address] [place] [address] 79380 #### HA1C #### [facility] ([id number]) [address] [place] [address] Platelet mean volume (Bld) [Entitic vol] 6.9 fL Low 7-12 [facility] Comment on above: Performed By: #### P INR, 23012-1, 51843-4, CBCA, 49830-5, CMP, 4548-4, 6873-4 #### [facility] ([id number]) [address] [place] [address] 39980 #### HA1C #### [facility] ([id number]) [address] [place] [address] Platelets (Bld) [#/Vol] 297 10*3/uL Normal 150-450 [facility] Comment on above: Performed By: #### P INR, 82711-5, 13698-6, CBCA, 23877-4, CMP, 4548-4, 6873-4 #### [facility] ([id number]) [address] [place] [address] 69796 #### HA1C #### [facility] ([id number]) [address] [place] [address] RBC COUNT 4.57 X10E12/L Normal 4.10-5.70 [facility] Comment on above: Performed By: #### P INR, 31531-5, 59746-8, CBCA, 36609-8, CMP, 4548-4, 6873-4 #### [facility] ([id number]) [address] [place] [address] 49593 #### HA1C #### [facility] ([id number]) [address], [address] [place] [address] WBC (Bld) [#/Vol] 5.4 10*3/uL Normal 4.0-11.0 [facility] Comment on above: Performed By: #### P INR, 88654-2, 82331-4, CBCA, 97622-6, CMP, 4548-4, 6873-4 #### [facility] ([id number]) [address] [place] [address] 00373 #### HA1C #### [facility] ([id number]) [address] [place] [address] Glucose Glucometer (BldC) [M ass/Vol]on 05-31-2024 Glucose [Mass/Vol] 201 mg/dL High 65-99 [facility] Glucose [Mass/Vol] 217 mg/dL High 65-99 [facility] Glucose [Mass/Vol] 189 mg/dL High 65-99 [facility] Glucose [Mass/Vol] 148 mg/dL High 65-99 [facility] CBC AND AUTO DIFFon 05-30-20 24 ABSOLUTE BASOPHIL 0.1 X10E9/L Normal 0.0-0.2 [facility] Comment on above: Performed By: #### P INR, 19475-8, 85721-2, CBCA, 52459-2, CMP, 4548-4, 6873-4 #### [facility] ([id number]) [address] [place] [address] 50721 #### HA1C #### [facility] ([id number]) [address] [facility], [address] [place] [address] ABSOLUTE NEUTROPHIL 2.4 X10E9/L Normal 1.5-6.6 [facility] Comment on above: Performed By: #### P INR, 79326-6, 43368-4, CBCA, 76304-3, CMP, 4548-4, 6873-4 #### [facility] ([id number]) [address] [place] [address] 87110 #### HA1C #### [facility] ([id number]) [address] [facility] [place] [address] Basophils/100 WBC (Bld) 1.2 % Normal P [facility] Comment on above: Performed By: #### P INR, 49995-3, 55107-4, CBCA, 99376-8, CMP, 4548-4, 6873-4 #### [facility] ([id number]) [address] [place] [address] #### HA1C #### [facility] ([id number]) [address] [place] [address] Eosinophils (Bld) [#/Vol] 0.4 10*3/uL Normal 0.0-0.4 [facility] Comment on above: Performed By: #### P INR, 63270-2, 20350-6, CBCA, 18224-4, CMP, 4548-4, 6873-4 #### [facility] ([id number]) [address] [place] [address] 85402 #### HA1C #### [facility] ([id number]) [address] [place] [address] Eosinophils/100 WBC (Bld) 10.0 % Normal [facility] Comment on above: Performed By: #### P INR, 07816-7, 86991-2, CBCA, 68251-3, CMP, 4548-4, 6873-4 #### [facility] ([id number]) [address] [place] [address] 88859 #### HA1C #### [facility] ([id number]) [address] [place] [address] Erythrocyte distribution width (RBC) [Ratio] 15.3 % High 11.5-15.0 [facility] Comment on above: Performed By: #### P INR, 31218-4, 94522-0, CBCA, 78130-2, CMP, 4548-4, 6873-4 #### [facility] ([id number]) [address] [place] [address]19 #### HA1C #### [facility] ([id number]) [address], [address] [place] [address] Hematocrit (Bld) [Volume fraction] 33.6 % Low 39-49 [facility] Comment on above: Performed By: #### P INR, 38653-4, 37967-2, CBCA, 14707-2, CMP, 4548-4, 6873-4 #### [facility] ([id number]) [address] [place] [address] 91299 #### HA1C #### [facility] ([id number]) [address], [address] [place] [address] Hemoglobin (Bld) [Mass/Vol] 11.3 g/dL Low 13.0-17.0 [facility] Comment on above: Performed By: #### P INR, 51192-5, 18818-4, CBCA, 18495-3, CMP, 4548-4, 6873-4 #### [facility] ([id number]) [address] [place] [address] 18342 #### HA1C #### [facility] ([id number]) [address], [address] [place] [address] Lymphocytes (Bld) [#/Vol] 1.1 10*3/uL Normal 1.0-3.5 [facility] Comment on above: Performed By: #### P INR, 64873-7, 08844-8, CBCA, 10958-2, CMP, 4548-4, 6873-4 #### [facility] ([id number]) [address] [place] [address] 09054 #### HA1C #### [facility] ([id number]) [address], [address] [place] [address] Lymphocytes/100 WBC (Bld) 24.4 % Normal [facility] Comment on above: Performed By: #### P INR, 89626-3, 39740-5, CBCA, 23783-5, CMP, 4548-4, 6873-4 #### [facility] ([id number]) [address] [place] [address] 58671 #### HA1C #### [facility] ([id number]) [address] [facility] [place] [address] MCH (RBC) [Entitic mass] 27.2 pg Normal 27-34 [facility] Comment on above: Performed By: #### P INR, 29454-1, 89366-5, CBCA, 88658-8, CMP, 4548-4, 6873-4 #### [facility] ([id number]) [address] [place] [address] 31208 #### HA1C #### [facility] ([id number]) [address] [facility], [address] [place] [address] MCHC (RBC) [Mass/Vol] 33.5 g/dL Normal 32-36 [facility] Comment on above: Performed By: #### P INR, 78515-8, 80998-1, CBCA, 59532-2, CMP, 4548-4, 6873-4 #### [facility] ([id number]) [address] [place] [address] #### HA1C #### [facility] ([id number]) [address] [facility], [address] [place] [address] MCV (RBC) [Entitic vol] 81 fL Normal 80-100 [facility] Comment on above: Performed By: #### P INR, 73831-2, 80479-4, CBCA, 86774-2, CMP, 4548-4, 6873-4 #### [facility] ([id number]) [address] [place] [address] [id number] #### HA1C #### [facility] ([id number]) [address] [facility], [address] [place] [address] Monocytes (Bld) [#/Vol] 0.4 10*3/uL Normal 0-0.9 [facility] Comment on above: Performed By: #### P INR, 18165-6, 70449-8, CBCA, 88469-1, CMP, 4548-4, 6873-4 #### [facility] ([id number]) [address] [place] [address] 65595 #### HA1C #### [facility] ([id number]) [address], [address] [place] [address] Monocytes/100 WBC (Bld) 9.7 % Normal [facility] Comment on above: Performed By: #### P INR, 60739-0, 68904-2, CBCA, 63034-2, CMP, 4548-4, 6873-4 #### [facility] ([id number]) [address] [place] [address] 76114 #### HA1C #### [facility] ([id number]) [address] [facility], [address] [place] [address] Neutrophils/100 WBC (Bld) 54.7 % Normal [facility] Comment on above: Performed By: #### P INR, 76049-1, 62332-2, CBCA, 53331-9, CMP, 4548-4, 6873-4 #### [facility] ([id number]) [address] [place] [address] 16313 #### HA1C #### [facility] ([id number]) [address] [facility] [facility], [address] [place] [address] Platelet mean volume (Bld) [Entitic vol] 7.1 fL Normal 7-12 [facility] Comment on above: Performed By: #### P INR, 18639-2, 13666-5, CBCA, 47043-6, CMP, 4548-4, 6873-4 #### [facility] ([id number]) [address] [place] [address] 69483 #### HA1C #### [facility] ([id number]) [address], [address] [place] [address] Platelets (Bld) [#/Vol] 282 10*3/uL Normal 150-450 [facility] Comment on above: Performed By: #### P INR, 95484-6, 52664-8, CBCA, 13089-9, CMP, 4548-4, 6873-4 #### [facility] ([id number]) [address] [place] [address] 32513 #### HA1C #### [facility] ([id number]) [address], [address] [address] RBC COUNT 4.14 X10E12/L Normal 4.10-5.70 [facility] Comment on above: Performed By: #### P INR, 07714-8, 84154-3, CBCA, 36535-8, CMP, 4548-4, 6873-4 #### [facility] ([id number]) [address] [place] [address] 28697 #### HA1C #### [facility] ([id number]) [address], [address] [place] [address] WBC (Bld) [#/Vol] 4.4 10*3/uL Normal 4.0-11.0 [facility] Comment on above: Performed By: #### P INR, 24118-8, 30903-0, CBCA, 58375-5, CMP, 4548-4, 6873-4 #### [facility] ([id number]) [address] [place] [address] 41596 #### HA1C #### [facility] ([id number]) [address], [address] [place] [address] COMPREHENSIVE METABOLIC PANE [place] 05-30-2024 Albumin [Mass/Vol] 3.3 g/dL Normal 3.2-5.3 [facility] Comment on above: Performed By: #### P INR, 69695-8, 55301-6, CBCA, 24524-2, CMP, 4548-4, 6873-4 #### [facility] ([id number]) [address] [place] [address] 19221 #### HA1C #### [facility] ([id number]) [address] [facility] [facility], [address] [place] [address] ALP [Catalytic activity/Vol] 82 U/L Normal 39-130 [facility] Comment on above: Performed By: #### P INR, 02889-0, 59150-9, CBCA, 75593-2, CMP, 4548-4, 6873-4 #### [facility] ([id number]) [address] [place] [address] 80201 #### HA1C #### [facility] ([id number]) [address] [facility], [address] [place] [address] ALT [Catalytic activity/Vol] 27 U/L Normal 0-40 [facility] Comment on above: Performed By: #### P INR, 14306-0, 02269-4, CBCA, 60506-2, CMP, 4548-4, 6873-4 #### [facility] ([id number]) [address] [place] [address] 16814 #### HA1C #### [facility] ([id number]) [address] [facility] [facility], [address] [place] [address] Anion gap [Moles/Vol] 7 mmol/L Normal 5-15 [facility] Comment on above: Performed By: #### P INR, 94313-9, 09103-5, CBCA, 69923-0, CMP, 4548-4, 6873-4 #### [facility] ([id number]) [address] [place] [address] 56409 #### HA1C #### [facility] ([id number]) [address], [address] [place] [address] AST [Catalytic activity/Vol] 21 U/L Normal 0-41 [facility] Comment on above: Performed By: #### P INR, 76587-8, 00451-7, CBCA, 59462-6, CMP, 4548-4, 6873-4 #### [facility] ([id number]) [address] [place] [address] 42368 #### HA1C #### [facility] ([id number]) [address], [address] [place] [address] Bilirubin [Mass/Vol] 0.6 mg/dL Normal 0.3-1.2 [facility] Comment on above: Performed By: #### P INR, 51765-6, 02156-7, CBCA, 69272-0, CMP, 4548-4, 6873-4 #### [facility] ([id number]) [address] [place] [address] 66521 #### HA1C #### [facility] ([id number]) [address], [address] [place] [address] Calcium [Mass/Vol] 8.2 mg/dL Low 8.5-10.5 [facility] Comment on above: Performed By: #### P INR, 56087-7, 47223-2, CBCA, 63451-8, CMP, 4548-4, 6873-4 #### [facility] ([id number]) [address] [place] [address] 07113 #### HA1C #### [facility] ([id number]) [address], [address] [place] [address] Chloride [Moles/Vol] 103 mmol/L Normal 98-109 [facility] Comment on above: Performed By: #### P INR, 09748-3, 81409-1, CBCA, 15258-2, CMP, 4548-4, 6873-4 #### [facility] ([id number]) [address] [place] [address] 62726 #### HA1C #### [facility] ([id number]) [address], [address] [place] [address] CO2 [Moles/Vol] 23 mmol/L Normal 22-32 [facility] Comment on above: Performed By: #### P INR, 15522-5, 09546-3, CBCA, 38305-0, CMP, 4548-4, 6873-4 #### [facility] ([id number]) [address] [place] [address] 21823 #### HA1C #### [facility] ([id number]) [address] [facility], [address] [place] [address] Creatinine [Mass/Vol] 0.69 mg/dL Low 0.70-1.20 [facility] Comment on above: Result Comment: METH OD TRACEABLE TO IDMS STANDARD Performed By: #### P INR, 36458-7, 67764-1, CBCA, 19955-4, CMP, 4548-4, 6873-4 #### [facility] ([id number]) [address] [place] [address] 62196 #### HA1C #### [facility] ([id number]) [address], [address] [place] [address] eGFR (CKD-EPI) NON-RACE DEPENDENT >90 Normal >59 [facility] Comment on above: Result Comment: Reported eGFR is based on the CKD-EPI 2020 equation that does not use a race coefficient. Performed By: #### P INR, 64819-0, 43487-9, CBCA, 65391-0, CMP, 4548-4, 6873-4 #### [facility] ([id number]) [address] [place] [address] 23342 #### HA1C #### [facility] ([id number]) [address], [address] [place] [address] Glucose [Mass/Vol] 132 mg/dL High 65-99 [facility] Comment on above: Performed By: #### P INR, 40743-5, 52468-2, CBCA, 06790-5, CMP, 4548-4, 6873-4 #### [facility] ([id number]) [address] [place] [address] 67063 #### HA1C #### [facility] ([id number]) [address] [facility], [address] [place] [address] Potassium [Moles/Vol] 3.6 mmol/L Normal 3.5-5.0 [facility] Comment on above: Performed By: #### P INR, 31901-8, 30977-2, CBCA, 69439-5, CMP, 4548-4, 6873-4 #### [facility] ([id number]) [address] [place] [address] 06983 #### HA1C #### [facility] ([id number]) [address], [address] [place] [address] Protein [Mass/Vol] 6.4 g/dL Normal 6.0-8.0 [facility] Comment on above: Performed By: #### P INR, 36565-1, 47659-1, CBCA, 04751-4, CMP, 4548-4, 6873-4 #### [facility] ([id number]) [address] [place] [address] 34036 #### HA1C #### [facility] ([id number]) [address], [address] [place] [address] Sodium [Moles/Vol] 133 mmol/L Low 134-146 [facility] Comment on above: Performed By: #### P INR, 42488-2, 14964-6, CBCA, 95496-9, CMP, 4548-4, 6873-4 #### [facility] ([id number]) [address] [place] [address] 83681 #### HA1C #### [facility] ([id number]) [address] [facility], [address] [place] [address] Urea nitrogen [Mass/Vol] 25 mg/dL Normal 5-27 [facility] Comment on above: Performed By: #### P INR, 59976-2, 05116-4, CBCA, 94212-6, CMP, 4548-4, 6873-4 #### [facility] ([id number]) [address] [place] [address] 19790 #### HA1C #### [facility] ([id number]) [address] [facility], [address] [place] [address] Glucose Glucometer (BldC) [M ass/Vol]on 05-30-2024 Glucose [Mass/Vol] 194 mg/dL High 65-99 [facility] Glucose [Mass/Vol] 176 mg/dL High 65-99 [facility] Glucose [Mass/Vol] 131 mg/dL High 65-99 [facility] Glucose [Mass/Vol] 122 mg/dL High 65-99 [facility] CBC AND AUTO DIFFon 05-29-20 24 ABSOLUTE BASOPHIL 0.0 X10E9/L Normal 0.0-0.2 [facility] Comment on above: Performed By: #### P INR, 90519-5, 18084-6, CBCA, 91412-2, CMP, 4548-4, 6873-4 #### [facility] ([id number]) [address] [place] [address] 17605 #### HA1C #### [facility] ([id number]) [address], [address] [place] [address] ABSOLUTE NEUTROPHIL 3.0 X10E9/L Normal 1.5-6.6 [facility] Comment on above: Performed By: #### P INR, 38010-1, 02482-3, CBCA, 47624-7, CMP, 4548-4, 6873-4 #### [facility] ([id number]) [address] [place] [address] 08154 #### HA1C #### [facility] ([id number]) [address] [facility], [address] [place] [address] Basophils/100 WBC (Bld) 0.5 % Normal [facility] Comment on above: Performed By: #### P INR, 63480-9, 39252-3, CBCA, 91247-3, CMP, 4548-4, 6873-4 #### [facility] ([id number]) [address] [place] [address] 18715 #### HA1C #### [facility] ([id number]) [address] [facility], [address] [place] [address] Eosinophils (Bld) [#/Vol] 0.3 10*3/uL Normal 0.0-0.4 [facility] Comment on above: Performed By: #### P INR, 89863-6, 81979-5, CBCA, 45667-2, CMP, 4548-4, 6873-4 #### [facility] ([id number]) [address] [place] [address] 43026 #### HA1C #### [facility] ([id number]) [address], [address] [place] [address] Eosinophils/100 WBC (Bld) 6.0 % Normal [facility] Comment on above: Performed By: #### P INR, 36461-0, 31441-8, CBCA, 59238-4, CMP, 4548-4, 6873-4 #### [facility] ([id number]) [address] [place] [address] 26216 #### HA1C #### [facility] ([id number]) [address], [address] [place] [address] Erythrocyte distribution width (RBC) [Ratio] 15.7 % High 11.5-15.0 [facility] Comment on above: Performed By: #### P INR, 21956-3, 08814-4, CBCA, 68350-9, CMP, 4548-4, 6873-4 #### [facility] ([id number]) [address] [place] [address] 24552 #### HA1C #### [facility] ([id number]) [address], [address] [place] [address] Hematocrit (Bld) [Volume fraction] 31.8 % Low 39-49 [facility] Comment on above: Performed By: #### P INR, 58750-8, 62756-7, CBCA, 25030-6, CMP, 4548-4, 6873-4 #### [facility] ([id number]) [address] [place] [address] 85641 #### HA1C #### [facility] ([id number]) [address], [address] [place] [address] Hemoglobin (Bld) [Mass/Vol] 10.7 g/dL Low 13.0-17.0 [facility] Comment on above: Performed By: #### P INR, 56550-2, 94139-8, CBCA, 76977-8, CMP, 4548-4, 6873-4 #### [facility] ([id number]) [address] [place] [address] 15059 #### HA1C #### [facility] ([id number]) [address], [address] [place] [address] Lymphocytes (Bld) [#/Vol] 0.7 10*3/uL Low 1.0-3.5 [facility] Comment on above: Performed By: #### P INR, 82997-0, 59598-8, CBCA, 80941-5, CMP, 4548-4, 6873-4 #### [facility] ([id number]) [address] [place] [address] 26063 #### HA1C #### [facility] ([id number]) [address], [facility] [address] [place] [address] Lymphocytes/100 WBC (Bld) 14.9 % Normal [facility] Comment on above: Performed By: #### P INR, 39091-9, 89701-5, CBCA, 19746-6, CMP, 4548-4, 6873-4 #### [facility] ([id number]) [address] [place] [address] 48489 #### HA1C #### [facility] ([id number]) [address], [address] [place] [address] MCH (RBC) [Entitic mass] 27.7 pg Normal 27-34 [facility] Comment on above: Performed By: #### P INR, 52928-6, 78075-2, CBCA, 42361-0, CMP, 4548-4, 6873-4 #### [facility] ([id number]) [address] [place] [address] 11832 #### HA1C #### [facility] ([id number]) [address], [address] [place] [address] MCHC (RBC) [Mass/Vol] 33.7 g/dL Normal 32-36 [facility] Comment on above: Performed By: #### P INR, 29292-4, 83833-5, CBCA, 00634-1, CMP, 4548-4, 6873-4 #### [facility] ([id number]) [address] [place] [address] 10064 #### HA1C #### [facility] ([id number]) [address] [facility], [address] [place] [address] MCV (RBC) [Entitic vol] 82 fL Normal 80-[address] [facility] Comment on above: Performed By: #### P INR, 18929-4, 69538-2, CBCA, 27560-6, CMP, 4548-4, 6873-4 #### [facility] ([id number]) [address] [place] [address] 14692 #### HA1C #### [facility] ([id number]) [address] [facility], [address] [place] [address] Monocytes (Bld) [#/Vol] 0.5 10*3/uL Normal 0-0.9 [facility] Comment on above: Performed By: #### P INR, 69924-8, 29135-8, CBCA, 50736-0, CMP, 4548-4, 6873-4 #### [facility] ([id number]) [address] [place] [address] 83530 #### HA1C #### [facility] ([id number]) [address] [facility], [address] [place] [address] Monocytes/100 WBC (Bld) 11.2 % Normal P [facility] Comment on above: Performed By: #### P INR, 32431-9, 33909-0, CBCA, 48620-8, CMP, 4548-4, 6873-4 #### [facility] ([id number]) [address] [place] [address] 81505 #### HA1C #### [facility] ([id number]) [address] [place] [address], [address] [place] [address] Neutrophils/100 WBC (Bld) 67.4 % Normal [facility] Comment on above: Performed By: #### P INR, 82615-7, 37309-9, CBCA, 91372-2, CMP, 4548-4, 6873-4 #### [facility] ([id number]) [address] [place] [address] 70828 #### HA1C #### [facility] ([id number]) [address], [address] [place] [address] Platelet mean volume (Bld) [Entitic vol] 7.4 fL Normal 7-12 [facility] Comment on above: Performed By: #### P INR, 48006-4, 65831-9, CBCA, 82830-1, CMP, 4548-4, 6873-4 #### [facility] ([id number]) [address] [place] [address] 63646 #### HA1C #### [facility] ([id number]) [address] [facility], [address] [place] [address] Platelets (Bld) [#/Vol] 263 10*3/uL Normal 150-450 [facility] Comment on above: Performed By: #### P INR, 84997-5, 68852-2, CBCA, 22196-5, CMP, 4548-4, 6873-4 #### [facility] ([id number]) [address] [place] [address] 80075 #### HA1C #### [facility] ([id number]) [address] [facility], [address] [place] [address] RBC COUNT 3.86 X10E12/L Low 4.10-5.70 [facility] Comment on above: Performed By: #### P INR, 43705-9, 62754-3, CBCA, 24801-1, CMP, 4548-4, 6873-4 #### [facility] ([id number]) [address] [place] [address] 50692 #### HA1C #### [facility] ([id number]) [address], [address] [place] [address] WBC (Bld) [#/Vol] 4.4 10*3/uL Normal 4.0-11.0 [facility] Comment on above: Performed By: #### P INR, 60336-5, 39888-9, CBCA, 24117-9, CMP, 4548-4, 6873-4 #### [facility] ([id number]) [address] [place] [address] 27661 #### HA1C #### [facility] ([id number]) [address], [address] [place] [address] COMPREHENSIVE METABOLIC PANE [place] 05-29-2024 Albumin [Mass/Vol] 3.1 g/dL Low 3.2-5.3 [facility] Comment on above: Performed By: #### P INR, 76436-1, 03143-6, CBCA, 81197-7, CMP, 4548-4, 6873-4 #### [facility] ([id number]) [address] [place] [address] 38680 #### HA1C #### [facility] ([id number]) [address], [address] [place] [address] ALP [Catalytic activity/Vol] 79 U/L Normal 39-130 [facility] Comment on above: Performed By: #### P INR, 21439-8, 87882-2, CBCA, 61518-6, CMP, 4548-4, 6873-4 #### [facility] ([id number]) [address] [place] [address] 31878 #### HA1C #### [facility] ([id number]) [address], [address] [place] [address] ALT [Catalytic activity/Vol] 23 U/L Normal 0-40 [facility] Comment on above: Performed By: #### P INR, 05668-0, 11425-1, CBCA, 45019-4, CMP, 4548-4, 6873-4 #### [facility] ([id number]) [address] [place] [address] 98399 #### HA1C #### [facility] ([id number]) [address] [facility], [address] [place] [address] Anion gap [Moles/Vol] 9 mmol/L Normal 5-15 [facility] Comment on above: Performed By: #### P INR, 60884-4, 75559-3, CBCA, 67356-5, CMP, 4548-4, 6873-4 #### [facility] ([id number]) [address] [place] [address] 89213 #### HA1C #### [facility] ([id number]) [address] [facility], [address] [place] [address] AST [Catalytic activity/Vol] 20 U/L Normal 0-41 [facility] Comment on above: Performed By: #### P INR, 07540-1, 65578-1, CBCA, 64714-6, CMP, 4548-4, 6873-4 #### [facility] ([id number]) [address] [place] [address] 48324 #### HA1C #### [facility] ([id number]) [address] [facility], [address] [place] [address] Bilirubin [Mass/Vol] 0.5 mg/dL Normal 0.3-1.2 [facility] Comment on above: Performed By: #### P INR, 82993-1, 73850-1, CBCA, 29334-4, CMP, 4548-4, 6873-4 #### [facility] ([id number]) [address] [place] [address] 29372 #### HA1C #### [facility] ([id number]) [address], [address] [place] [address] Calcium [Mass/Vol] 8.6 mg/dL Normal 8.5-10.5 [facility] Comment on above: Performed By: #### P INR, 23674-0, 96077-8, CBCA, 23486-2, CMP, 4548-4, 6873-4 #### [facility] ([id number]) [address] [place] [address] 44736 #### HA1C #### [facility] ([id number]) [address], [address] [place] [address] Chloride [Moles/Vol] 102 mmol/L Normal 98-109 [facility] Comment on above: Performed By: #### P INR, 54778-8, 19926-8, CBCA, 69702-3, CMP, 4548-4, 6873-4 #### [facility] ([id number]) [address] [place] [address] 49755 #### HA1C #### [facility] ([id number]) [address], [address] [place] [address] CO2 [Moles/Vol] 24 mmol/L Normal 22-32 [facility] Comment on above: Performed By: #### P INR, 70370-2, 27316-2, CBCA, 78837-9, CMP, 4548-4, 6873-4 #### [facility] ([id number]) [address] [place] [id number] #### HA1C #### [facility] ([id number]) [address], [address] [place] [address] Creatinine [Mass/Vol] 1.13 mg/dL Normal 0.70-1.20 [facility] Comment on above: Result Comment: METH OD TRACEABLE TO IDMS STANDARD Performed By: #### P INR, 47855-7, 72785-2, CBCA, 79182-1, CMP, 4548-4, 6873-4 #### [facility] ([id number]) [address] [place] [id number] #### HA1C #### [facility] ([id number]) [address] [facility] [facility], [address] [place] [address] GFR/1.73 sq M.predicted among non-blacks MDRD (S/P/Bld) [Vol rate/Area] 70 mL/min/{1.73_m2} Normal >59 [facility] Comment on above: Result Comment: Reported eGFR is based on the CKD-EPI 2020 equation that does not use a race coefficient. Performed By: #### P INR, 63595-9, 86046-8, CBCA, 39651-3, CMP, 4548-4, 6873-4 #### [facility] ([id number]) [address] [place] [address] #### HA1C #### [facility] ([id number]) [address] [facility], [address] [place] [address] Glucose [Mass/Vol] 133 mg/dL High 65-99 [facility] Comment on above: Performed By: #### P INR, 19185-4, 36348-3, CBCA, 84436-6, CMP, 4548-4, 6873-4 #### [facility] ([id number]) [address] [place] [address] #### HA1C #### [facility] ([id number]) [address] [facility] [facility], [address] [place] [address] Potassium [Moles/Vol] 3.5 mmol/L Normal 3.5-5.0 [facility] Comment on above: Performed By: #### P INR, 51295-4, 70027-3, CBCA, 86177-7, CMP, 4548-4, 6873-4 #### [facility] ([id number]) [address] [place] [address] #### HA1C #### [facility] ([id number]) [address], [address] [place] [address] Protein [Mass/Vol] 6.2 g/dL Normal 6.0-8.0 [facility] Comment on above: Performed By: #### P INR, 37412-4, 46913-1, CBCA, 07279-3, CMP, 4548-4, 6873-4 #### [facility] ([id number]) [address] [place] [address] #### HA1C #### [facility] ([id number]) [address] [facility] [facility], [address] [place] [address] Sodium [Moles/Vol] 135 mmol/L Normal 134-146 [facility] Comment on above: Performed By: #### P INR, 46938-5, 95195-7, CBCA, 60914-2, CMP, 4548-4, 6873-4 #### [facility] ([id number]) [address] [place] [address] #### HA1C #### [facility] ([id number]) [address], [address] [place] [address] Urea nitrogen [Mass/Vol] 52 mg/dL High 5-27 [facility] Comment on above: Performed By: #### P INR, 01791-1, 89655-8, CBCA, 87626-9, CMP, 4548-4, 6873-4 #### [facility] ([id number]) [address] [place] [address] 268[address] #### HA1C #### [facility] ([id number]) [address] [facility], [address] [place] [address] Glucose Glucometer (BldC) [M ass/Vol]on 05-29-2024 Glucose [Mass/Vol] 167 mg/dL High 65-99 [facility] Glucose [Mass/Vol] 127 mg/dL High 65-99 [facility] Glucose [Mass/Vol] 168 mg/dL High 65-99 [facility] POTASSIUMon 05-29-2024 Potassium [Moles/Vol] 4.1 mmol/L Normal 3.5-5.0 [facility] Comment on above: Performed By: #### P INR, 70566-0, 25384-3, CBCA, 46452-9, CMP, 4548-4, 6873-4 #### [facility] ([id number]) [address] [place] [id number] #### HA1C #### [facility] [facility] ([id number]) [address] [place] [address], [address] [place] [address] Potassium [Moles/Vol] 3.7 mmol/L Normal 3.5-5.0 [facility] Comment on above: Performed By: #### P INR, 06915-7, 86315-1, CBCA, 77984-5, CMP, 4548-4, 6873-4 #### [facility] ([id number]) [address] [place] [address] 75617 #### HA1C #### [facility] ([id number]) [address] [place] [address], [address] [place] [address] CBC AND AUTO DIFFon 05-28-20 24 ABSOLUTE BASOPHIL 0.0 X10E9/L Normal 0.0-0.2 [facility] Comment on above: Performed By: #### P INR, 62715-8, 27709-1, CBCA, 71358-9, CMP, 4548-4, 6873-4 #### [facility] ([id number]) [address] [place] [address] 16761 #### HA1C #### [facility] ([id number]) [address], [address] [place] [address] ABSOLUTE NEUTROPHIL 5.2 X10E9/L Normal 1.5-6.6 [facility] Comment on above: Performed By: #### P INR, 89112-6, 28547-8, CBCA, 88479-3, CMP, 4548-4, 6873-4 #### [facility] ([id number]) [address] [place] [address] 80334 #### HA1C #### [facility] ([id number]) [address], [address] [place] [address] Basophils/100 WBC (Bld) 0.2 % Normal [facility] Comment on above: Performed By: #### P INR, 38881-5, 86820-0, CBCA, 30330-4, CMP, 4548-4, 6873-4 #### [facility] ([id number]) [address] [place] [address] 45288 #### HA1C #### [facility] ([id number]) [address], [address] [place] [address] Eosinophils (Bld) [#/Vol] 0.1 10*3/uL Normal 0.0-0.4 [facility] Comment on above: Performed By: #### P INR, 08165-3, 06158-3, CBCA, 23759-0, CMP, 4548-4, 6873-4 #### [facility] ([id number]) [address] [place] [address] 64094 #### HA1C #### [facility] ([id number]) [address], [address] [place] [address] Eosinophils/100 WBC (Bld) 1.1 % Normal [facility] Comment on above: Performed By: #### P INR, 53018-2, 29010-2, CBCA, 92094-2, CMP, 4548-4, 6873-4 #### [facility] ([id number]) [address] [place] [address] 89840 #### HA1C #### [facility] ([id number]) [address], [address] [place] [address] Erythrocyte distribution width (RBC) [Ratio] 15.6 % High 11.5-15.0 [facility] Comment on above: Performed By: #### P INR, 87261-6, 93702-6, CBCA, 84604-8, CMP, 4548-4, 6873-4 #### [facility] ([id number]) [address] [place] [address] 71841 #### HA1C #### [facility] ([id number]) [address], [address] [place] [address] Hematocrit (Bld) [Volume fraction] 33.8 % Low 39-49 [facility] Comment on above: Performed By: #### P INR, 80202-4, 68440-9, CBCA, 43258-9, CMP, 4548-4, 6873-4 #### [facility] ([id number]) [address] [place] [address] 43468 #### HA1C #### [facility] ([id number]) [address], [address] [place] [address] Hemoglobin (Bld) [Mass/Vol] 11.2 g/dL Low 13.0-17.0 [facility] Comment on above: Performed By: #### P INR, 17298-8, 16412-1, CBCA, 04851-1, CMP, 4548-4, 6873-4 #### [facility] ([id number]) [address] [place] [address] 38399 #### HA1C #### [facility] ([id number]) [address], [address] [place] [address] Lymphocytes (Bld) [#/Vol] 0.6 10*3/uL Low 1.0-3.5 [facility] Comment on above: Performed By: #### P INR, 50585-2, 17332-2, CBCA, 96703-0, CMP, 4548-4, 6873-4 #### [facility] ([id number]) [address] [place] [address] 32633 #### HA1C #### [facility] ([id number]) [address] [facility], [address] [place] [address] Lymphocytes/100 WBC (Bld) 9.4 % Normal [facility] Comment on above: Performed By: #### P INR, 28021-7, 74958-2, CBCA, 68343-6, CMP, 4548-4, 6873-4 #### [facility] ([id number]) [address] [place] [address] 15730 #### HA1C #### [facility] ([id number]) [address], [address] [place] [address] MCH (RBC) [Entitic mass] 27.4 pg Normal 27-34 [facility] Comment on above: Performed By: #### P INR, 91972-3, 23485-4, CBCA, 82210-9, CMP, 4548-4, 6873-4 #### [facility] ([id number]) [address] [place] [address] 98515 #### HA1C #### [facility] ([id number]) [address], [address] [place] [address] MCHC (RBC) [Mass/Vol] 33.2 g/dL Normal 32-36 [facility] Comment on above: Performed By: #### P INR, 98894-4, 18800-8, CBCA, 16988-3, CMP, 4548-4, 6873-4 #### [facility] ([id number]) [address] [place] [address] 08137 #### HA1C #### [facility] ([id number]) [address] [facility], [address] [place] [address] MCV (RBC) [Entitic vol] 83 fL Normal 80-[address] [facility] Comment on above: Performed By: #### P INR, 87346-1, 99318-4, CBCA, 39746-3, CMP, 4548-4, 6873-4 #### [facility] ([id number]) [address] [place] [address] 10782 #### HA1C #### [facility] ([id number]) [address] [facility], [address] [place] [address] Monocytes (Bld) [#/Vol] 0.6 10*3/uL Normal 0-0.9 [facility] Comment on above: Performed By: #### P INR, 47343-3, 16100-7, CBCA, 57679-4, CMP, 4548-4, 6873-4 #### [facility] ([id number]) [address] [place] [address] 15719 #### HA1C #### [facility] ([id number]) [address] [facility], [address] [place] [address] Monocytes/100 WBC (Bld) 9.1 % Normal [facility] Comment on above: Performed By: #### P INR, 84636-7, 84162-1, CBCA, 55488-2, CMP, 4548-4, 6873-4 #### [facility] ([id number]) [address] [place] [address] 51297 #### HA1C #### [facility] ([id number]) [address], [address] [place] [address] Neutrophils/100 WBC (Bld) 80.2 % Normal [facility] Comment on above: Performed By: #### P INR, 43171-1, 22516-6, CBCA, 60982-1, CMP, 4548-4, 6873-4 #### [facility] ([id number]) [address] [place] [address] 22324 #### HA1C #### [facility] ([id number]) [address], [address] [place] [address] Platelet mean volume (Bld) [Entitic vol] 7.8 fL Normal 7-12 [facility] Comment on above: Performed By: #### P INR, 10028-4, 41539-0, CBCA, 51986-4, CMP, 4548-4, 6873-4 #### [facility] ([id number]) [address] [place] [address] 06814 #### HA1C #### [facility] ([id number]) [address], [address] [place] [address] Platelets (Bld) [#/Vol] 263 10*3/uL Normal 150-450 [facility] Comment on above: Performed By: #### P INR, 94968-5, 28114-2, CBCA, 19598-7, CMP, 4548-4, 6873-4 #### [facility] ([id number]) [address] [place] [address] 07384 #### HA1C #### [facility] ([id number]) [address], [address] [place] [address] RBC COUNT 4.09 X10E12/L Low 4.10-5.70 [facility] Comment on above: Performed By: #### P INR, 21214-6, 91330-8, CBCA, 90338-6, CMP, 4548-4, 6873-4 #### [facility] ([id number]) [address] [place] [address] 86814 #### HA1C #### [facility] ([id number]) [address], [address] [place] [address] WBC (Bld) [#/Vol] 6.5 10*3/uL Normal 4.0-11.0 [facility] Comment on above: Performed By: #### P INR, 54122-9, 61058-1, CBCA, 36747-9, CMP, 4548-4, 6873-4 #### [facility] ([id number]) [address] [place] [address] 82769 #### HA1C #### [facility] ([id number]) [address] [facility], [address] [place] [address] COMPREHENSIVE METABOLIC PANE [place] 05-28-2024 Albumin [Mass/Vol] 3.6 g/dL Normal 3.2-5.3 [facility] Comment on above: Performed By: #### P INR, 28425-6, 10677-3, CBCA, 37793-6, CMP, 4548-4, 6873-4 #### [facility] ([id number]) [address] [place] [address] 00704 #### HA1C #### [facility] ([id number]) [address] [facility], [address] [place] [address] ALP [Catalytic activity/Vol] 91 U/L Normal 39-130 [facility] Comment on above: Performed By: #### P INR, 66421-0, 98074-8, CBCA, 54896-3, CMP, 4548-4, 6873-4 #### [facility] ([id number]) [address] [place] [address] 90735 #### HA1C #### [facility] ([id number]) [address], [address] [place] [address] ALT [Catalytic activity/Vol] 21 U/L Normal 0-40 [facility] Comment on above: Performed By: #### P INR, 67853-5, 03923-4, CBCA, 96231-0, CMP, 4548-4, 6873-4 #### [facility] ([id number]) [address] [place] [address] 01816 #### HA1C #### [facility] ([id number]) [address] [facility], [address] [place] [address] Anion gap [Moles/Vol] 12 mmol/L Normal 5-15 [facility] Comment on above: Performed By: #### P INR, 94738-5, 85704-3, CBCA, 96435-1, CMP, 4548-4, 6873-4 #### [facility] ([id number]) [address] [place] [address] 68593 #### HA1C #### [facility] ([id number]) [address] [facility], [address] [place] [address] AST [Catalytic activity/Vol] 18 U/L Normal 0-41 [facility] Comment on above: Performed By: #### P INR, 81188-3, 24416-0, CBCA, 61867-2, CMP, 4548-4, 6873-4 #### [facility] ([id number]) [address] [place] [address] 10747 #### HA1C #### [facility] ([id number]) [address] [facility], [address] [place] [address] Bilirubin [Mass/Vol] 0.7 mg/dL Normal 0.3-1.2 [facility] Comment on above: Performed By: #### P INR, 96326-1, 09134-2, CBCA, 90353-0, CMP, 4548-4, 6873-4 #### [facility] ([id number]) [address] [place] [address] 26246 #### HA1C #### [facility] ([id number]) [address], [address] [place] [address] Calcium [Mass/Vol] 8.9 mg/dL Normal 8.5-10.5 [facility] Comment on above: Performed By: #### P INR, 66127-0, 88699-6, CBCA, 83743-6, CMP, 4548-4, 6873-4 #### [facility] ([id number]) [address] [place] [address] 53598 #### HA1C #### [facility] ([id number]) [address], [address] [place] [address] Chloride [Moles/Vol] 98 mmol/L Normal 98-109 [facility] Comment on above: Performed By: #### P INR, 31034-1, 67411-7, CBCA, 95544-1, CMP, 4548-4, 6873-4 #### [facility] ([id number]) [address] [place] [address] 09021 #### HA1C #### [facility] ([id number]) [address], [address] [place] [address] CO2 [Moles/Vol] 23 mmol/L Normal 22-32 [facility] Comment on above: Performed By: #### P INR, 16190-0, 15100-1, CBCA, 26008-9, CMP, 4548-4, 6873-4 #### [facility] ([id number]) [address] [place] [address] 97318 #### HA1C #### [facility] ([id number]) [address] [facility], [address] [place] [address] Creatinine [Mass/Vol] 1.88 mg/dL High 0.70-1.20 [facility] Comment on above: Result Comment: METH OD TRACEABLE TO IDMS STANDARD Performed By: #### P INR, 82598-4, 12960-0, CBCA, 43929-7, CMP, 4548-4, 6873-4 #### [facility] ([id number]) [address] [place] [address] 24546 #### HA1C #### [facility] ([id number]) [address] [facility], [address] [place] [address] GFR/1.73 sq M.predicted among non-blacks MDRD (S/P/Bld) [Vol rate/Area] 38 mL/min/{1.73_m2} Low >59 [facility] Comment on above: Result Comment: Reported eGFR is based on the CKD-EPI 2020 equation that does not use a race coefficient. Performed By: #### P INR, 48511-6, 47384-6, CBCA, 37151-1, CMP, 4548-4, 6873-4 #### [facility] ([id number]) [address] [place] [address] 70828 #### HA1C #### [facility] ([id number]) [address] [facility], [address] [place] [address] Glucose [Mass/Vol] 157 mg/dL High 65-99 [facility] Comment on above: Performed By: #### P INR, 06571-3, 50045-2, CBCA, 88341-4, CMP, 4548-4, 6873-4 #### [facility] ([id number]) [address] [place] [address] 25995 #### HA1C #### [facility] ([id number]) [address] [facility], [address] [place] [address] Potassium [Moles/Vol] 3.6 mmol/L Normal 3.5-5.0 [facility] Comment on above: Performed By: #### P INR, 67053-0, 80821-0, CBCA, 22675-6, CMP, 4548-4, 6873-4 #### [facility] ([id number]) [address] [place] [address] 89862 #### HA1C #### [facility] ([id number]) [address] [facility], [address] [place] [address] Protein [Mass/Vol] 6.8 g/dL Normal 6.0-8.0 [facility] Comment on above: Performed By: #### P INR, 03236-9, 57208-2, CBCA, 73172-8, CMP, 4548-4, 6873-4 #### [facility] ([id number]) [address] [place] [address] 46366 #### HA1C #### [facility] ([id number]) [address] [facility], [address] [place] [address] Sodium [Moles/Vol] 133 mmol/L Low 134-146 [facility] Comment on above: Performed By: #### P INR, 04537-7, 52862-9, CBCA, 32527-5, CMP, 4548-4, 6873-4 #### [facility] ([id number]) [address] [place] [address] 52209 #### HA1C #### [facility] ([id number]) [address] [facility], [address] [place] [address] Urea nitrogen [Mass/Vol] 87 mg/dL High 5-27 [facility] Comment on above: Performed By: #### P INR, 60378-6, 93807-6, CBCA, 82284-0, CMP, 4548-4, 6873-4 #### [facility] ([id number]) [address] [place] [address] 20972 #### HA1C #### [facility] ([id number]) [address] [place] [address], [address] [place] [address] Glucose Glucometer (BldC) [M ass/Vol]on 05-28-2024 Glucose [Mass/Vol] 148 mg/dL High 65-99 [facility] Glucose [Mass/Vol] 174 mg/dL High 65-99 [facility] Glucose [Mass/Vol] 177 mg/dL High 65-99 [facility] MAGNESIUMon 05-28-2024 Magnesium [Mass/Vol] 2.1 mg/dL Normal 1.8-2.6 [facility] Comment on above: Performed By: #### P INR, 08861-4, 80657-4, CBCA, 42020-0, CMP, 4548-4, 6873-4 #### [facility] ([id number]) [address] [place] [address] 86679 #### HA1C #### [facility] ([id number]) [address] [place] [address], [address] [place] [address] 46622 PHOSPHORUSon 05-28-2024 Phosphate [Mass/Vol] 4.4 mg/dL Normal 2.4-4.9 [facility] Comment on above: Performed By: #### P INR, 53107-2, 45990-9, CBCA, 54640-5, CMP, 4548-4, 6873-4 #### [facility] ([id number]) [address] [place] [address] 19575 #### HA1C #### [facility] ([id number]) [address] [place] [address], [address] [place] [address] POTASSIUMon 05-28-2024 Potassium [Moles/Vol] 3.6 mmol/L Normal 3.5-5.0 [facility] Comment on above: Performed By: #### P INR, 12851-5, 32844-9, CBCA, 35371-9, CMP, 4548-4, 6873-4 #### [facility] ([id number]) [address] [place] [address] 98282 #### HA1C #### [facility] ([id number]) [address] [facility], [address] [place] [address] CBC AND AUTO DIFFon 05-27-20 24 ABSOLUTE BASOPHIL 0.0 X10E9/L Normal 0.0-0.2 [facility] Comment on above: Performed By: #### P INR, 67004-9, 53596-0, CBCA, 73209-4, CMP, 4548-4, 6873-4 #### [facility] ([id number]) [address] [place] [address] 06677 #### HA1C #### [facility] ([id number]) [address] [facility], [address] [place] [address] ABSOLUTE NEUTROPHIL 12.1 X10E9/L High 1.5-6.6 [facility] Comment on above: Performed By: #### P INR, 67306-4, 78055-5, CBCA, 03316-4, CMP, 4548-4, 6873-4 #### [facility] ([id number]) [address] [place] [address] 32093 #### HA1C #### [facility] ([id number]) [address] [facility], [address] [place] [address] Basophils/100 WBC (Bld) 0.3 % Normal P [facility] Comment on above: Performed By: #### P INR, 37508-2, 65108-1, CBCA, 27996-0, CMP, 4548-4, 6873-4 #### [facility] ([id number]) [address] [place] [address] 81418 #### HA1C #### [facility] ([id number]) [address], [address] [place] [address] Eosinophils (Bld) [#/Vol] 0.0 10*3/uL Normal 0.0-0.4 [facility] Comment on above: Performed By: #### P INR, 33364-3, 04969-4, CBCA, 25744-1, CMP, 4548-4, 6873-4 #### [facility] ([id number]) [address] [place] [address] 73193 #### HA1C #### [facility] ([id number]) [address], [address] [place] [address] Eosinophils/100 WBC (Bld) 0.2 % Normal [facility] Comment on above: Performed By: #### P INR, 80534-9, 30877-2, CBCA, 36338-9, CMP, 4548-4, 6873-4 #### [facility] ([id number]) [address] [place] [address] 83541 #### HA1C #### [facility] ([id number]) [address], [address] [place] [address] Erythrocyte distribution width (RBC) [Ratio] 16.2 % High 11.5-15.0 [facility] Comment on above: Performed By: #### P INR, 18052-0, 17607-1, CBCA, 55176-8, CMP, 4548-4, 6873-4 #### [facility] ([id number]) [address] [place] [address] 48762 #### HA1C #### [facility] ([id number]) [address], [address] [place] [address] Hematocrit (Bld) [Volume fraction] 39.5 % Normal 39-49 [facility] Comment on above: Performed By: #### P INR, 80780-4, 26052-0, CBCA, 65924-8, CMP, 4548-4, 6873-4 #### [facility] ([id number]) [address] [place] [address] 75867 #### HA1C #### [facility] ([id number]) [address], [address] [place] [address] Hemoglobin (Bld) [Mass/Vol] 13.2 g/dL Normal 13.0-17.0 [facility] Comment on above: Performed By: #### P INR, 63730-5, 98749-7, CBCA, 45964-7, CMP, 4548-4, 6873-4 #### [facility] ([id number]) [address] [place] [address] 51371 #### HA1C #### [facility] ([id number]) [address], [address] [place] [address] Lymphocytes (Bld) [#/Vol] 0.4 10*3/uL Low 1.0-3.5 [facility] Comment on above: Performed By: #### P INR, 84353-1, 70125-8, CBCA, 35852-1, CMP, 4548-4, 6873-4 #### [facility] ([id number]) [address] [place] [address] 32520 #### HA1C #### [facility] ([id number]) [address], [address] [place] [address] Lymphocytes/100 WBC (Bld) 3.2 % Normal [facility] Comment on above: Performed By: #### P INR, 78166-3, 37953-1, CBCA, 76811-3, CMP, 4548-4, 6873-4 #### [facility] ([id number]) [address] [place] [address] 50592 #### HA1C #### [facility] ([id number]) [address], [address] [place] [address] MCH (RBC) [Entitic mass] 27.5 pg Normal 27-34 [facility] Comment on above: Performed By: #### P INR, 12421-4, 23668-5, CBCA, 29774-6, CMP, 4548-4, 6873-4 #### [facility] ([id number]) [address] [place] [address] 72198 #### HA1C #### [facility] ([id number]) [address] [place] [address] MCHC (RBC) [Mass/Vol] 33.4 g/dL Normal 32-36 [facility] Comment on above: Performed By: #### P INR, 16625-2, 95478-5, CBCA, 30919-7, CMP, 4548-4, 6873-4 #### [facility] ([id number]) [address] [place] [address] 37651 #### HA1C #### [facility] ([id number]) [address] [place] [address] MCV (RBC) [Entitic vol] 82 fL Normal 80-[address] [facility] Comment on above: Performed By: #### P INR, 64440-5, 63119-2, CBCA, 68037-9, CMP, 4548-4, 6873-4 #### [facility] ([id number]) [address] [place] [address] 66024 #### HA1C #### [facility] ([id number]) [address], [address] [place] [address] Monocytes (Bld) [#/Vol] 1.0 10*3/uL High 0-0.9 [facility] Comment on above: Performed By: #### P INR, 33312-4, 35342-1, CBCA, 35225-8, CMP, 4548-4, 6873-4 #### [facility] ([id number]) [address] [place] [address] [phone] #### HA1C #### [facility] ([id number]) [address], [address] [place] [address] Monocytes/100 WBC (Bld) 7.1 % Normal [facility] Comment on above: Performed By: #### P INR, 40423-8, 36978-0, CBCA, 26481-8, CMP, 4548-4, 6873-4 #### [facility] ([id number]) [address] [place] [address] 52835 #### HA1C #### [facility] ([id number]) [address], [address] [place] [address] Neutrophils/100 WBC (Bld) 89.2 % Normal [facility] Comment on above: Performed By: #### P INR, 40038-3, 04177-2, CBCA, 63281-7, CMP, 4548-4, 6873-4 #### [facility] ([id number]) [address] [place] [address] 57664 #### HA1C #### [facility] ([id number]) [address], [address] [place] [address] Platelet mean volume (Bld) [Entitic vol] 8.0 fL Normal 7-12 [facility] Comment on above: Performed By: #### P INR, 94649-8, 17984-3, CBCA, 13452-3, CMP, 4548-4, 6873-4 #### [facility] ([id number]) [address] [place] [address] 41088 #### HA1C #### [facility] ([id number]) [address], [address] [place] [address] Platelets (Bld) [#/Vol] 296 10*3/uL Normal 150-450 [facility] Comment on above: Performed By: #### P INR, 47933-3, 40016-0, CBCA, 67262-1, CMP, 4548-4, 6873-4 #### [facility] ([id number]) [address] [place] [address] 20556 #### HA1C #### [facility] ([id number]) [address] [place] [address] RBC COUNT 4.79 X10E12/L Normal 4.10-5.70 [facility] Comment on above: Performed By: #### P INR, 56149-3, 23859-0, CBCA, 11613-8, CMP, 4548-4, 6873-4 #### [facility] ([id number]) [address] [place] [address] 74293 #### HA1C #### [facility] ([id number]) [address] [facility] [place] [address] WBC (Bld) [#/Vol] 13.5 10*3/uL High 4.0-11.0 [facility] Comment on above: Performed By: #### P INR, 00365-3, 21591-2, CBCA, 70789-6, CMP, 4548-4, 6873-4 #### [facility] ([id number]) [address] [place] [address] 71504 #### HA1C #### [facility] ([id number]) [address] [facility], [address] [place] [address] COMPREHENSIVE METABOLIC PANE [place] 05-27-2024 Albumin [Mass/Vol] 4.6 g/dL Normal 3.2-5.3 [facility] Comment on above: Performed By: #### P INR, 50104-5, 84427-9, CBCA, 72520-5, CMP, 4548-4, 6873-4 #### [facility] ([id number]) [address] [place] [address] 57804 #### HA1C #### [facility] ([id number]) [address] [facility], [address] [place] [address] ALP [Catalytic activity/Vol] 112 U/L Normal 39-130 [facility] Comment on above: Performed By: #### P INR, 55646-5, 47849-2, CBCA, 31625-5, CMP, 4548-4, 6873-4 #### [facility] ([id number]) [address] [place] [address] 86769 #### HA1C #### [facility] ([id number]) [address] [facility], [address] [place] [address] ALT [Catalytic activity/Vol] 23 U/L Normal 0-40 [facility] Comment on above: Performed By: #### P INR, 98476-2, 51723-7, CBCA, 61576-6, CMP, 4548-4, 6873-4 #### [facility] ([id number]) [address] [place] [address] 48059 #### HA1C #### [facility] ([id number]) [address] [facility], [address] [place] [address] Anion gap [Moles/Vol] 13 mmol/L Normal 5-15 [facility] Comment on above: Performed By: #### P INR, 17798-8, 80733-1, CBCA, 99243-5, CMP, 4548-4, 6873-4 #### [facility] ([id number]) [address] [place] [address] 28250 #### HA1C #### [facility] ([id number]) [address] [facility], [address] [place] [address] AST [Catalytic activity/Vol] 21 U/L Normal 0-41 [facility] Comment on above: Performed By: #### P INR, 86794-4, 27975-5, CBCA, 40138-2, CMP, 4548-4, 6873-4 #### [facility] ([id number]) [address] [place] [address] 49408 #### HA1C #### [facility] ([id number]) [address] [facility], [address] [place] [address] Bilirubin [Mass/Vol] 0.7 mg/dL Normal 0.3-1.2 [facility] Comment on above: Performed By: #### P INR, 87296-0, 54921-3, CBCA, 93508-3, CMP, 4548-4, 6873-4 #### [facility] ([id number]) [address] [place] [address] 83753 #### HA1C #### [facility] ([id number]) [address] [place] [address], [address] [place] [address] Calcium [Mass/Vol] 9.6 mg/dL Normal 8.5-10.5 [facility] Comment on above: Performed By: #### P INR, 22175-3, 03120-5, CBCA, 33961-6, CMP, 4548-4, 6873-4 #### [facility] ([id number]) [address] [place] [address] 54205 #### HA1C #### [facility] ([id number]) [address] [place] [address], [address] [place] [address] Chloride [Moles/Vol] 94 mmol/L Low 98-109 [facility] Comment on above: Performed By: #### P INR, 34054-7, 27153-8, CBCA, 48820-4, CMP, 4548-4, 6873-4 #### [facility] ([id number]) [address] [place] [address] 38433 #### HA1C #### [facility] ([id number]) [address], [address] [place] [address] CO2 [Moles/Vol] 21 mmol/L Low 22-32 [facility] Comment on above: Performed By: #### P INR, 31858-1, 63254-1, CBCA, 49746-9, CMP, 4548-4, 6873-4 #### [facility] ([id number]) [address] [place] [address] 49535 #### HA1C #### [facility] ([id number]) [address] [facility], [address] [place] [address] Creatinine [Mass/Vol] 2.75 mg/dL High 0.70-1.20 [facility] Comment on above: Result Comment: METH OD TRACEABLE TO IDMS STANDARD Performed By: #### P INR, 97412-7, 43319-7, CBCA, 14630-3, CMP, 4548-4, 6873-4 #### [facility] ([id number]) [address] [place] [address] 76138 #### HA1C #### [facility] ([id number]) [address], [address] [place] [address] GFR/1.73 sq M.predicted among non-blacks MDRD (S/P/Bld) [Vol rate/Area] 24 mL/min/{1.73_m2} Low >59 [facility] Comment on above: Result Comment: Reported eGFR is based on the CKD-EPI 2020 equation that does not use a race coefficient. Performed By: #### P INR, 96897-2, 35578-4, CBCA, 79675-8, CMP, 4548-4, 6873-4 #### [facility] ([id number]) [address] [place] [address] 45048 #### HA1C #### [facility] ([id number]) [address], [address] [place] [address] Glucose [Mass/Vol] 223 mg/dL High 65-99 [facility] Comment on above: Performed By: #### P INR, 57068-3, 68753-2, CBCA, 02366-8, CMP, 4548-4, 6873-4 #### [facility] ([id number]) [address] [place] [address] 70073 #### HA1C #### [facility] ([id number]) [address], [address] [place] [address] Potassium [Moles/Vol] 4.9 mmol/L Normal 3.5-5.0 [facility] Comment on above: Performed By: #### P INR, 43395-8, 04020-7, CBCA, 18982-7, CMP, 4548-4, 6873-4 #### [facility] ([id number]) [address] [place] [address] 29832 #### HA1C #### [facility] ([id number]) [address], [address] [place] [address] Protein [Mass/Vol] 8.2 g/dL High 6.0-8.0 [facility] Comment on above: Performed By: #### P INR, 72876-4, 07065-6, CBCA, 05301-9, CMP, 4548-4, 6873-4 #### [facility] ([id number]) [address] [place] [address] 22527 #### HA1C #### [facility] ([id number]) [address], [address] [place] [address] Sodium [Moles/Vol] 128 mmol/L Low 134-146 [facility] Comment on above: Performed By: #### P INR, 20571-0, 32723-4, CBCA, 38870-8, CMP, 4548-4, 6873-4 #### [facility] ([id number]) [address] [place] [address] 78639 #### HA1C #### [facility] ([id number]) [address] [facility], [address] [place] [address] Urea nitrogen [Mass/Vol] 106 mg/dL High 5-27 [facility] Comment on above: Performed By: #### P INR, 38355-7, 32135-0, CBCA, 57693-7, CMP, 4548-4, 6873-4 #### [facility] ([id number]) [address] [place] [address] 29361 #### HA1C #### [facility] ([id number]) [address] [facility], [address] [place] [address] Glucose Glucometer (BldC) [M ass/Vol]on 05-27-2024 Glucose [Mass/Vol] 170 mg/dL High 65-99 [facility] MAGNESIUMon 05-27-2024 Magnesium [Mass/Vol] 2.4 mg/dL Normal 1.8-2.6 [facility] Comment on above: Performed By: #### P INR, 92246-6, 98335-8, CBCA, 52506-3, CMP, 4548-4, 6873-4 #### [facility] ([id number]) [address] [place] [address] 28908 #### HA1C #### [facility] ([id number]) [address] [facility], [address] [place] [address] Troponin I.cardiac High sens itivity method [Mass/Vol]on 05-27-2024 1 HOUR TROP I, HIGH SENSITIVITY 11 ng/L Normal <21 [facility] Comment on above: Performed By: #### P INR, 47015-5, 02614-0, CBCA, 93960-3, CMP, 4548-4, 6873-4 #### [facility] ([id number]) [address] [place] [address] 37791 #### HA1C #### [facility] ([id number]) [address], [address] [place] [address] TROPONIN I, HIGH SENSITIVITY 10 ng/L Normal <21 [facility] Comment on above: Performed By: #### P INR, 89956-9, 47964-4, CBCA, 23093-5, CMP, 4548-4, 6873-4 #### [facility] ([id number]) [address] [place] [address] 91459 #### HA1C #### [facility] ([id number]) [address], [address] [place] [address] URN MACROSCOPIC NURon 2023 BILIRUBIN ALLYN Negative Normal NEG [facility] Comment on above: Performed By: #### P INR, 08174-1, 73994-1, CBCA, 75206-5, CMP, 4548-4, 6873-4 #### [facility] ([id number]) [address] [place] [address] 84006 #### HA1C #### [facility] ([id number]) [address], [address] [place] [address] BLOOD/HGB ALYLN Large Abnormal NEG [facility] Comment on above: Performed By: #### P INR, 66364-3, 83768-1, CBCA, 18937-3, CMP, 4548-4, 6873-4 #### [facility] ([id number]) [address] [place] [address] 26367 #### HA1C #### [facility] ([id number]) [address], [address] [place] [address] GLUCOSE ALLYN Negative Normal NEG [facility] Comment on above: Performed By: #### P INR, 01324-1, 71639-9, CBCA, 53640-5, CMP, 4548-4, 6873-4 #### [facility] ([id number]) [address] [place] [address] 03067 #### HA1C #### [facility] ([id number]) [address] [facility], [address] [place] [address] KETONES ALLYN Negative Normal NEG [facility] Comment on above: Performed By: #### P INR, 11895-2, 56950-8, CBCA, 75682-9, CMP, 4548-4, 6873-4 #### [facility] ([id number]) [address] [place] [address] 22698 #### HA1C #### [facility] ([id number]) [address] [facility], [address] [place] [address] LEUKOCYTE ESTERASE ALLYN Negative Normal NEG [facility] Comment on above: Performed By: #### P INR, 14151-0, 66018-6, CBCA, 73626-6, CMP, 4548-4, 6873-4 #### [facility] ([id number]) [address] [place] [address] 97446 #### HA1C #### [facility] ([id number]) [address] [facility], [address] [place] [address] NITRITE ALLYN Negative Normal NEG [facility] Comment on above: Performed By: #### P INR, 04000-9, 13111-9, CBCA, 11436-7, CMP, 4548-4, 6873-4 #### [facility] ([id number]) [address] [place] [address] 96611 #### HA1C #### [facility] ([id number]) [address] [facility], [address] [place] [address] PH ALLYN 5.5 Normal 5.0-8.5 [facility] Comment on above: Performed By: #### P INR, 00401-8, 96479-0, CBCA, 82717-1, CMP, 4548-4, 6873-4 #### [facility] ([id number]) [address] [place] [address] 75420 #### HA1C #### [facility] ([id number]) [address] [place] [address], [address] [place] [address] PROTEIN ALLYN 30 mg/dL Abnormal NEG [facility] Comment on above: Performed By: #### P INR, 91057-6, 00379-7, CBCA, 54710-9, CMP, 4548-4, 6873-4 #### [facility] ([id number]) [address] [place] [address] 32541 #### HA1C #### [facility] ([id number]) [address] [place] [address], [address] [place] [address] SPECIFIC GRAVITY ALLYN 1.025 Normal 1.003-1.035 [facility] Comment on above: Performed By: #### P INR, 67992-8, 63282-9, CBCA, 48486-9, CMP, 4548-4, 6873-4 #### [facility] ([id number]) [address] [place] [address] 81837 #### HA1C #### [facility] ([id number]) [address] [place] [address], [address] [place] [address] UROBILINOGEN ALLYN 0.2 eu/dL Normal <1.1 [facility] Comment on above: Performed By: #### P INR, 64859-8, 70200-7, CBCA, 47309-8, CMP, 4548-4, 6873-4 #### [facility] ([id number]) [address] [place] [address] 43521 #### HA1C #### [facility] ([id number]) [address], [address] [place] [address] BASIC METABOLIC PANLon 05-12 Anion gap [Moles/Vol] 8 mmol/L Normal 5-15 [facility] Comment on above: Performed By: #### P INR, 32173-5, 90529-9, CBCA, 25214-6, CMP, 4548-4, 6873-4 #### [facility] ([id number]) [address] [place] [address] 39786 #### HA1C #### [facility] ([id number]) [address] [facility], [address] [place] [address] Calcium [Mass/Vol] 8.9 mg/dL Normal 8.5-10.5 [facility] Comment on above: Performed By: #### P INR, 33644-3, 43483-2, CBCA, 74734-5, CMP, 4548-4, 6873-4 #### [facility] ([id number]) [address] [place] [address] 38632 #### HA1C #### [facility] ([id number]) [address], [address] [place] [address] Chloride [Moles/Vol] 102 mmol/L Normal 98-109 [facility] Comment on above: Performed By: #### P INR, 84194-6, 23657-1, CBCA, 22998-6, CMP, 4548-4, 6873-4 #### [facility] ([id number]) [address] [place] [address] 09357 #### HA1C #### [facility] ([id number]) [address], [address] [place] [address] CO2 [Moles/Vol] 26 mmol/L Normal 22-32 [facility] Comment on above: Performed By: #### P INR, 14791-7, 48694-9, CBCA, 70296-9, CMP, 4548-4, 6873-4 #### [facility] ([id number]) [address] [place] [address] 70758 #### HA1C #### [facility] ([id number]) [address], [address] [place] [address] Creatinine [Mass/Vol] 0.68 mg/dL Low 0.70-1.20 [facility] Comment on above: Result Comment: METH OD TRACEABLE TO IDMS STANDARD Performed By: #### P INR, 69421-3, 62429-2, CBCA, 18955-1, CMP, 4548-4, 6873-4 #### [facility] ([id number]) [address] [place] [address] 71266 #### HA1C #### [facility] ([id number]) [address], [address] [place] [address] eGFR (CKD-EPI) NON-RACE DEPENDENT >90 Normal >59 [facility] Comment on above: Result Comment: Reported eGFR is based on the CKD-EPI 2020 equation that does not use a race coefficient. Performed By: #### P INR, 45097-0, 65584-5, CBCA, 37594-6, CMP, 4548-4, 6873-4 #### [facility] ([id number]) [address] [place] [address] 83699 #### HA1C #### [facility] ([id number]) [address], [address] [place] [address] Glucose [Mass/Vol] 143 mg/dL High 65-99 [facility] Comment on above: Performed By: #### P INR, 05402-8, 95349-4, CBCA, 35480-0, CMP, 4548-4, 6873-4 #### [facility] ([id number]) [address] [place] [address] 64148 #### HA1C #### [facility] ([id number]) [address], [address] [place] [address] Potassium [Moles/Vol] 3.7 mmol/L Normal 3.5-5.0 [facility] Comment on above: Performed By: #### P INR, 22989-6, 87435-6, CBCA, 91518-1, CMP, 4548-4, 6873-4 #### [facility] ([id number]) [address] [place] [address] 53168 #### HA1C #### [facility] ([id number]) [address], [address] [place] [address] Sodium [Moles/Vol] 136 mmol/L Normal 134-146 [facility] Comment on above: Performed By: #### P INR, 97049-7, 47781-9, CBCA, 91760-3, CMP, 4548-4, 6873-4 #### [facility] ([id number]) [address] [place] [address] 26104 #### HA1C #### [facility] ([id number]) [address], [address] [place] [address] Urea nitrogen [Mass/Vol] 22 mg/dL Normal 5-27 [facility] Comment on above: Performed By: #### P INR, 51288-0, 59832-7, CBCA, 01566-0, CMP, 4548-4, 6873-4 #### [facility] ([id number]) [address] [place] [address] 15374 #### HA1C #### [facility] ([id number]) [address] [facility], [address] [place] [address] CBC AND AUTO DIFFon 05-12-20 24 ABSOLUTE BASOPHIL 0.1 X10E9/L Normal 0.0-0.2 [facility] Comment on above: Performed By: #### P INR, 17838-9, 27485-2, CBCA, 23817-4, CMP, 4548-4, 6873-4 #### [facility] ([id number]) [address] [place] [address] 95869 #### HA1C #### [facility] ([id number]) [address] [place] [address], [address] [place] [address] ABSOLUTE NEUTROPHIL 2.2 X10E9/L Normal 1.5-6.6 [facility] Comment on above: Performed By: #### P INR, 84870-3, 74142-7, CBCA, 06424-8, CMP, 4548-4, 6873-4 #### [facility] ([id number]) [address] [place] [address] 09591 #### HA1C #### [facility] ([id number]) [address] [place] [address], [address] [place] [address] Basophils/100 WBC (Bld) 1.7 % Normal [facility] Comment on above: Performed By: #### P INR, 76036-7, 95078-9, CBCA, 76929-1, CMP, 4548-4, 6873-4 #### [facility] ([id number]) [address] [place] [address] 83184 #### HA1C #### [facility] ([id number]) [address] [place] [address], [address] [place] [address] Eosinophils (Bld) [#/Vol] 0.1 10*3/uL Normal 0.0-0.4 [facility] Comment on above: Performed By: #### P INR, 86942-3, 04156-0, CBCA, 42366-7, CMP, 4548-4, 6873-4 #### [facility] ([id number]) [address] [place] [address] 27296 #### HA1C #### [facility] ([id number]) [address], [address] [place] [address] Eosinophils/100 WBC (Bld) 3.2 % Normal [facility] Comment on above: Performed By: #### P INR, 76859-1, 57473-6, CBCA, 55816-3, CMP, 4548-4, 6873-4 #### [facility] ([id number]) [address] [place] [address] 43119 #### HA1C #### [facility] ([id number]) [address] [facility], [address] [place] [address] Erythrocyte distribution width (RBC) [Ratio] 15.2 % High 11.5-15.0 [facility] Comment on above: Performed By: #### P INR, 08285-6, 21562-4, CBCA, 98335-9, CMP, 4548-4, 6873-4 #### [facility] ([id number]) [address] [place] [address] 24096 #### HA1C #### [facility] ([id number]) [address], [address] [place] [address] Hematocrit (Bld) [Volume fraction] 33.1 % Low 39-49 [facility] Comment on above: Performed By: #### P INR, 83048-3, 60598-7, CBCA, 84323-1, CMP, 4548-4, 6873-4 #### [facility] ([id number]) [address] [place] [address] 30298 #### HA1C #### [facility] ([id number]) [address], [address] [place] [address] Hemoglobin (Bld) [Mass/Vol] 11.3 g/dL Low 13.0-17.0 [facility] Comment on above: Performed By: #### P INR, 41776-1, 65758-7, CBCA, 58303-2, CMP, 4548-4, 6873-4 #### [facility] ([id number]) [address] [place] [address] 10335 #### HA1C #### [facility] ([id number]) [address] [facility], [address] [place] [address] Lymphocytes (Bld) [#/Vol] 1.5 10*3/uL Normal 1.0-3.5 [facility] Comment on above: Performed By: #### P INR, 51004-8, 62636-6, CBCA, 82916-7, CMP, 4548-4, 6873-4 #### [facility] ([id number]) [address] [place] [address] #### HA1C #### [facility] ([id number]) [address] [place] [address], [address] [place] [address] Lymphocytes/100 WBC (Bld) 35.4 % Normal [facility] Comment on above: Performed By: #### P INR, 91702-2, 05564-4, CBCA, 67470-9, CMP, 4548-4, 6873-4 #### [facility] ([id number]) [address] [place] [address] #### HA1C #### [facility] ([id number]) [address] [facility], [address] [place] [address] MCH (RBC) [Entitic mass] 28.9 pg Normal 27-34 [facility] Comment on above: Performed By: #### P INR, 53412-3, 26117-5, CBCA, 92341-6, CMP, 4548-4, 6873-4 #### [facility] ([id number]) [address] [place] [address] 24016 #### HA1C #### [facility] ([id number]) [address], [address] [place] [address] MCHC (RBC) [Mass/Vol] 34.2 g/dL Normal 32-36 [facility] Comment on above: Performed By: #### P INR, 91474-9, 35431-5, CBCA, 08860-3, CMP, 4548-4, 6873-4 #### [facility] ([id number]) [address] [place] [address] #### HA1C #### [facility] ([id number]) [address] [facility], [address] [place] [address] MCV (RBC) [Entitic vol] 84 fL Normal 80-[address] [facility] Comment on above: Performed By: #### P INR, 11407-0, 90002-0, CBCA, 41677-0, CMP, 4548-4, 6873-4 #### [facility] ([id number]) [address] [place] [address] 13774 #### HA1C #### [facility] ([id number]) [address], [address] [place] [address] Monocytes (Bld) [#/Vol] 0.3 10*3/uL Normal 0-0.9 [facility] Comment on above: Performed By: #### P INR, 24670-3, 92563-9, CBCA, 58512-6, CMP, 4548-4, 6873-4 #### [facility] ([id number]) [address] [place] [address] #### HA1C #### [facility] ([id number]) [address], [address] [place] [address] Monocytes/100 WBC (Bld) 7.8 % Normal [facility] Comment on above: Performed By: #### P INR, 57948-3, 17907-8, CBCA, 58700-9, CMP, 4548-4, 6873-4 #### [facility] ([id number]) [address] [place] [address] 69080 #### HA1C #### [facility] ([id number]) [address] [facility], [address] [place] [address] Neutrophils/100 WBC (Bld) 51.9 % Normal [facility] Comment on above: Performed By: #### P INR, 99104-0, 35803-0, CBCA, 08709-6, CMP, 4548-4, 6873-4 #### [facility] ([id number]) [address] [place] [address] 46512 #### HA1C #### [facility] ([id number]) [address] [facility], [address] [place] [address] Platelet mean volume (Bld) [Entitic vol] 7.1 fL Normal 7-12 [facility] Comment on above: Performed By: #### P INR, 92369-6, 81416-0, CBCA, 13937-9, CMP, 4548-4, 6873-4 #### [facility] ([id number]) [address] [place] [address] 15940 #### HA1C #### [facility] ([id number]) [address], [address] [place] [address] Platelets (Bld) [#/Vol] 310 10*3/uL Normal 150-450 [facility] Comment on above: Performed By: #### P INR, 79056-1, 16414-1, CBCA, 78464-7, CMP, 4548-4, 6873-4 #### [facility] ([id number]) [address] [place] [address] #### HA1C #### [facility] ([id number]) [address], [address] [place] [address] RBC COUNT 3.93 X10E12/L Low 4.10-5.70 [facility] Comment on above: Performed By: #### P INR, 22368-2, 35534-8, CBCA, 81695-0, CMP, 4548-4, 6873-4 #### [facility] ([id number]) [address] [place] [address] 450[address] #### HA1C #### [facility] ([id number]) [address], [address] [place] [address] WBC (Bld) [#/Vol] 4.3 10*3/uL Normal 4.0-11.0 [facility] Comment on above: Performed By: #### P INR, 97582-8, 71332-3, CBCA, 51099-5, CMP, 4548-4, 6873-4 #### [facility] ([id number]) [address] [place] [address] 36378 #### HA1C #### [facility] ([id number]) [address], [address] [place] [address] CT BRAIN WO CONTon CT BRAIN WO [...] Yuan MD on 05/12/2024 3:05 AM Normal [facility] PROTIME AND INRon 05-12-2024 INR Coag (PPP) [Relative time] 1.2 {INR} High 0.8-1.1 [facility] Comment on above: Performed By: #### P INR, 80426-6, 65188-1, CBCA, 89372-9, CMP, 4548-4, 6873-4 #### [facility] ([id number]) [address] [place] [address] 370[address] #### HA1C #### [facility] ([id number]) [address] [facility], [address] [place] [address] PT Coag (PPP) [Time] 14.0 s High 9.8-13.2 [facility] Comment on above: Result Comment: NEW REFERENCE RANGE Performed By: #### P INR, 63040-1, 32295-6, CBCA, 64402-6, CMP, 4548-4, 6873-4 #### [facility] ([id number]) [address] [place] [address] 08335 #### HA1C #### [facility] ([id number]) [address] [facility] [place] [address] aPTT Coag (PPP) [Time]on aPTT Coag (Bld) [Time] 30 s Normal 26-37 [facility] Comment on above: Result Comment: NEW REFERENCE RANGE Performed By: #### P INR, 99449-7, 96031-5, CBCA, 74930-0, CMP, 4548-4, 6873-4 #### [facility] ([id number]) [address] [place] [address], [place] [address] #### HA1C #### [facility] ([id number]) [address], [address] [place] [address] CBC AND AUTO DIFFon 04-21-20 24 ABSOLUTE BASOPHIL 0.0 X10E9/L Normal 0.0-0.2 [facility] Comment on above: Performed By: #### C BCA, CMP ####[facility] ([id number])[address], [address] [address] ABSOLUTE NEUTROPHIL 2.8 X10E9/L Normal 1.5-6.6 [facility] Comment on above: Performed By: #### C BCA, CMP ####[facility] ([id number])[address], [address] [address] Basophils/100 WBC (Bld) 0.7 % Normal [facility] Comment on above: Performed By: #### C BCA, CMP ####[facility] ([id number])[address], [address] [address] Eosinophils (Bld) [#/Vol] 0.2 10*3/uL Normal 0.0-0.4 [facility] Comment on above: Performed By: #### C BCA, CMP ####[facility] ([id number])[address], [address] [place] [address] Eosinophils/100 WBC (Bld) 3.3 % Normal [facility] Comment on above: Performed By: #### C BCA, CMP ####[facility] ([id number])[address], [address] [place] [address] Erythrocyte distribution width (RBC) [Ratio] 16.2 % High 11.5-15.0 [facility] Comment on above: Performed By: #### C BCA, CMP ####[facility] ([id number])[address] [address], [place] [address] Hematocrit (Bld) [Volume fraction] 28.7 % Low 39-49 [facility] Comment on above: Performed By: #### C ZACHARY, CMP ####[facility] ([id number])[address] [address], [place] [address] Hemoglobin (Bld) [Mass/Vol] 10.2 g/dL Low 13.0-17.0 [facility] Comment on above: Performed By: #### C ZACHARY, CMP ####[facility] ([id number])[address] [address] [address] Lymphocytes (Bld) [#/Vol] 1.3 10*3/uL Normal 1.0-3.5 [facility] Comment on above: Performed By: #### C ZACHARY, CMP ####[facility] ([id number])[address] [address] [address] Lymphocytes/100 WBC (Bld) 28.0 % Normal [facility] Comment on above: Performed By: #### C ZACHARY, CMP ####[facility] ([id number])[address] [address], [place] [address] MCH (RBC) [Entitic mass] 31.7 pg Normal 27-34 [facility] Comment on above: Performed By: #### C ZACHARY, CMP ####[facility] ([id number])[address] [address] [place] [address] MCHC (RBC) [Mass/Vol] 35.6 g/dL Normal 32-36 [facility] Comment on above: Performed By: #### C ZACHARY, CMP ####[facility] ([id number])[address] [address] [place] [address] MCV (RBC) [Entitic vol] 89 fL Normal 80-[address] [facility] Comment on above: Performed By: #### C BCA, CMP ####[facility] ([id number])[address], [place] [address] Monocytes (Bld) [#/Vol] 0.5 10*3/uL Normal 0-0.9 [facility] Comment on above: Performed By: #### C BCA, CMP ####[facility] ([id number])[address], [place] [address] Monocytes/100 WBC (Bld) 9.6 % Normal P [facility] Comment on above: Performed By: #### C BCA, CMP ####[facility] ([id number])[address], [place] [address] Neutrophils/100 WBC (Bld) 58.4 % Normal [facility] Comment on above: Performed By: #### C BCA, CMP ####[facility] ([id number])[address], [address], [place] [address] Platelet mean volume (Bld) [Entitic vol] 7.3 fL Normal 7-12 [facility] Comment on above: Performed By: #### C BCA, CMP ####[facility] ([id number])[address], [address], [place] [address] Platelets (Bld) [#/Vol] 249 10*3/uL Normal 150-450 [facility] Comment on above: Performed By: #### C BCA, CMP ####[facility] ([id number])[address], [address], [place] [address] RBC COUNT 3.23 X10E12/L Low 4.10-5.70 [facility] Comment on above: Performed By: #### C BCA, CMP ####[facility] ([id number])[address], [address], [place] [address] WBC (Bld) [#/Vol] 4.8 10*3/uL Normal 4.0-11.0 [facility] Comment on above: Performed By: #### C BCA, CMP ####[facility] ([id number])[address], [address], [place] [address] COMPREHENSIVE METABOLIC PANE Delonte 04-21-2024 Albumin [Mass/Vol] 3.6 g/dL Normal 3.2-5.3 [facility] Comment on above: Performed By: #### C BCA, CMP ####[facility] ([id number])[address], [address], [place] [address] ALP [Catalytic activity/Vol] 78 U/L Normal 39-130 [facility] Comment on above: Performed By: #### C BCA, CMP ####[facility] ([id number])[address], [address], [place] [address] ALT [Catalytic activity/Vol] 27 U/L Normal 0-40 [facility] Comment on above: Performed By: #### C BCA, CMP ####[facility] ([id number])[address], [address], [place] [address] Anion gap [Moles/Vol] 9 mmol/L Normal 5-15 [facility] Comment on above: Performed By: #### C BCA, CMP ####[facility] ([id number])[address] [address], [place] [address] AST [Catalytic activity/Vol] 13 U/L Normal 0-41 [facility] Comment on above: Performed By: #### C BCA, CMP ####[facility] ([id number])[address], [address], [place] [address] Bilirubin [Mass/Vol] 0.4 mg/dL Normal 0.3-1.2 [facility] Comment on above: Performed By: #### C BCA, CMP ####[facility] ([id number])[address] [address], [place] [address] Calcium [Mass/Vol] 8.8 mg/dL Normal 8.5-10.5 [facility] Comment on above: Performed By: #### C BCA, CMP ####[facility] ([id number])[address], [address], [place] [address] Chloride [Moles/Vol] 100 mmol/L Normal 98-109 [facility] Comment on above: Performed By: #### C BCA, CMP ####[facility] ([id number])[address], [place] [address] CO2 [Moles/Vol] 28 mmol/L Normal 22-32 [facility] Comment on above: Performed By: #### C BCA, CMP ####[facility] ([id number])[address] [address], [place] [address] Creatinine [Mass/Vol] 0.70 mg/dL Normal 0.60-1.30 [facility] Comment on above: Result Comment: METH OD TRACEABLE TO IDMS STANDARD Performed By: #### C BCA, CMP ####[facility] ([id number])[address] [address], [place] [address] eGFR (CKD-EPI) NON-RACE DEPENDENT >90 Normal >59 [facility] Comment on above: Result Comment: Reported eGFR is based on the CKD-EPI 2021 equation that does not use a race coefficient. Performed By: #### C BCA, CMP ####[facility] ([id number])[address] [address], [place] [address] Glucose [Mass/Vol] 159 mg/dL High 65-99 [facility] Comment on above: Performed By: #### C BCA, CMP ####[facility] ([id number])[address] [address], [place] [address] Potassium [Moles/Vol] 4.2 mmol/L Normal 3.5-5.0 [facility] Comment on above: Performed By: #### C BCA, CMP ####[facility] ([id number])[address] [address] Protein [Mass/Vol] 5.6 g/dL Low 6.0-8.0 [facility] Comment on above: Performed By: #### C BCA, CMP ####[facility] ([id number])[address] [address] Sodium [Moles/Vol] 137 mmol/L Normal 134-146 [facility] Comment on above: Performed By: #### C BCA, CMP ####[facility] ([id number])[address] [address] Urea nitrogen [Mass/Vol] 17 mg/dL Normal 5-27 [facility] Comment on above: Performed By: #### C BCA, CMP ####[facility] ([id number])[address] [address] Glucose Glucometer (BldC) [M ass/Vol]on 04-21-2024 Glucose [Mass/Vol] 234 mg/dL High 65-99 [facility] Glucose [Mass/Vol] 143 mg/dL High 65-99 [facility] CBC AND AUTO DIFFon 04-20-20 ABSOLUTE BASOPHIL 0.1 X10E9/L Normal 0.0-0.2 [facility] Comment on above: Performed By: #### C BCA, CMP, 74396-7 #### [facility] ([id number]) [address], [address] [place] [address] ABSOLUTE NEUTROPHIL 2.9 X10E9/L Normal 1.5-6.6 [facility] Comment on above: Performed By: #### C BCA, CMP, 29673-9 #### [facility] ([id number]) [address], [address] [place] [address] Basophils/100 WBC (Bld) 1.1 % Normal [facility] Comment on above: Performed By: #### C BCA, CMP, 89163-5 #### [facility] ([id number]) [address], [address] [place] [address] Eosinophils (Bld) [#/Vol] 0.1 10*3/uL Normal 0.0-0.4 [facility] Comment on above: Performed By: #### C ZACHARY, CMP, 26872-7 #### [facility] ([id number]) [address], [address] [place] [address] Eosinophils/100 WBC (Bld) 2.7 % Normal [facility] Comment on above: Performed By: #### Thais SHARMA, CMP, 25696-9 #### [facility] ([id number]) [address], [address] [place] [address] Erythrocyte distribution width (RBC) [Ratio] 15.8 % High 11.5-15.0 [facility] Comment on above: Performed By: #### C BCA, CMP, 84605-3 #### [facility] ([id number]) [address], [address] [place] [address] Hematocrit (Bld) [Volume fraction] 30.3 % Low 39-49 [facility] Comment on above: Performed By: #### C BCA, CMP, 79636-6 #### [facility] ([id number]) [address], [address] [place] [address] Hemoglobin (Bld) [Mass/Vol] 10.5 g/dL Low 13.0-17.0 [facility] Comment on above: Performed By: #### C BCA, CMP, 03322-7 #### [facility] ([id number]) [address], [address] [place] [address] Lymphocytes (Bld) [#/Vol] 1.2 10*3/uL Normal 1.0-3.5 [facility] Comment on above: Performed By: #### C ZACHARY CMP, 58345-6 #### [facility] ([id number]) [address], [address] [place] [address] Lymphocytes/100 WBC (Bld) 25.4 % Normal [facility] Comment on above: Performed By: #### Thais SHARMA CMP, 09646-2 #### [facility] ([id number]) [address], [address] [place] [address] MCH (RBC) [Entitic mass] 30.5 pg Normal 27-34 [facility] Comment on above: Performed By: #### Thais SHARMA CMP, 60041-4 #### [facility] ([id number]) [address], [address] [place] [address] MCHC (RBC) [Mass/Vol] 34.5 g/dL Normal 32-36 [facility] Comment on above: Performed By: #### Thais SHARMA CMP, 80221-4 #### [facility] ([id number]) [address], [address] [place] [address] MCV (RBC) [Entitic vol] 88 fL Normal 80-[address] [facility] Comment on above: Performed By: #### Thais SHARMA CMP, 94558-3 #### [facility] ([id number]) [address], [address] [place] [address] Monocytes (Bld) [#/Vol] 0.4 10*3/uL Normal 0-0.9 [facility] Comment on above: Performed By: #### Thais SHARMA, CMP, 55012-5 #### [facility] ([id number]) [address], [address] [place] [address] Monocytes/100 WBC (Bld) 9.3 % Normal P [facility] Comment on above: Performed By: #### C BCA, CMP, 29419-2 #### [facility] ([id number]) [address], [address] [place] [address] Neutrophils/100 WBC (Bld) 61.5 % Normal [facility] Comment on above: Performed By: #### C BCA, CMP, 11103-1 #### [facility] ([id number]) [address], [address] [place] [address] Platelet mean volume (Bld) [Entitic vol] 7.1 fL Normal 7-12 [facility] Comment on above: Performed By: #### C BCA, CMP, 45131-4 #### [facility] ([id number]) [address], [address] [place] [address] Platelets (Bld) [#/Vol] 291 10*3/uL Normal 150-450 [facility] Comment on above: Performed By: #### C BCA, CMP, 56124-7 #### [facility] ([id number]) [address] [place] [address] RBC COUNT 3.43 X10E12/L Low 4.10-5.70 [facility] Comment on above: Performed By: #### C BCA, CMP, 36496-7 #### [facility] ([id number]) [address], [address] [place] [address] WBC (Bld) [#/Vol] 4.7 10*3/uL Normal 4.0-11.0 [facility] Comment on above: Performed By: #### C BCA, CMP, 95127-3 #### [facility] ([id number]) [address], [address] [place] [address] COMPREHENSIVE METABOLIC PANE Delonte 04-20-2024 Albumin [Mass/Vol] 3.9 g/dL Normal 3.2-5.3 [facility] Comment on above: Performed By: #### C BCA, CMP, 68516-0 #### [facility] ([id number]) [address] [place] [address] ALP [Catalytic activity/Vol] 94 U/L Normal 39-130 [facility] Comment on above: Performed By: #### C BCA, CMP, 26262-2 #### [facility] ([id number]) [address], [address] [place] [address] ALT [Catalytic activity/Vol] 41 U/L High 0-40 [facility] Comment on above: Performed By: #### C BCA, CMP, 25504-8 #### [facility] ([id number]) [address], [address] [place] [address] Anion gap [Moles/Vol] 9 mmol/L Normal 5-15 [facility] Comment on above: Performed By: #### C BCA, CMP, 94854-9 #### [facility] ([id number]) [address], [address] [place] [address] AST [Catalytic activity/Vol] 22 U/L Normal 0-41 [facility] Comment on above: Performed By: #### C BCA, CMP, 56060-0 #### [facility] ([id number]) [address] [place] [address] Bilirubin [Mass/Vol] 0.6 mg/dL Normal 0.3-1.2 [facility] Comment on above: Performed By: #### C BCA, CMP, 16518-7 #### [facility] ([id number]) [address], [address] [place] [address] Calcium [Mass/Vol] 9.1 mg/dL Normal 8.5-10.5 [facility] Comment on above: Performed By: #### C BCA, CMP, 94447-3 #### [facility] ([id number]) [address], [address] [place] [address] Chloride [Moles/Vol] 98 mmol/L Normal 98-109 [facility] Comment on above: Performed By: #### C ZACHARY CMP, 32479-8 #### [facility] ([id number]) [address], [address] [place] [address] CO2 [Moles/Vol] 30 mmol/L Normal 22-32 [facility] Comment on above: Performed By: #### C BCA, CMP, 29627-3 #### [facility] ([id number]) [address] [facility] [address] [place] [address] Creatinine [Mass/Vol] 0.69 mg/dL Normal 0.60-1.30 [facility] Comment on above: Result Comment: METH OD TRACEABLE TO IDMS STANDARD Performed By: #### C ZACHARY CMP, 09982-4 #### [facility] ([id number]) [address] [place] [address] eGFR (CKD-EPI) NON-RACE DEPENDENT >90 Normal >59 [facility] Comment on above: Result Comment: Reported eGFR is based on the CKD-EPI 2020 equation that does not use a race coefficient. Performed By: #### C ZACHARY, CMP, 77929-8 #### [facility] ([id number]) [address] [place] [address] Glucose [Mass/Vol] 204 mg/dL High 65-99 [facility] Comment on above: Performed By: #### C BCA, CMP, 14034-6 #### [facility] ([id number]) [address] [address] [place] [address] Potassium [Moles/Vol] 4.3 mmol/L Normal 3.5-5.0 [facility] Comment on above: Performed By: #### C BCA, CMP, 88826-5 #### [facility] ([id number]) [address] [place] [address] Protein [Mass/Vol] 6.2 g/dL Normal 6.0-8.0 [facility] Comment on above: Performed By: #### C ZACHARY, CMP, 86263-0 #### [facility] ([id number]) [address] [place] [address] Sodium [Moles/Vol] 137 mmol/L Normal 134-146 [facility] Comment on above: Performed By: #### C ZACHARY, CMP, 90640-7 #### [facility] ([id number]) [address] [place] [address] Urea nitrogen [Mass/Vol] 11 mg/dL Normal 5-27 [facility] Comment on above: Performed By: #### Thais SHARMA, CMP, 97388-4 #### [facility] ([id number]) [address] [place] [address] Glucose Glucometer (BldC) [M ass/Vol]on 04-20-2024 Glucose [Mass/Vol] 287 mg/dL High 65-99 [facility] Glucose [Mass/Vol] 263 mg/dL High 65-99 [facility] Glucose [Mass/Vol] 231 mg/dL High 65-99 [facility] Glucose [Mass/Vol] 176 mg/dL High 65-99 [facility] CBC AND AUTO DIFFon 04-19-20 24 ABSOLUTE BASOPHIL 0.0 X10E9/L Normal 0.0-0.2 [facility] Comment on above: Performed By: #### C BCA, CMP, 70938-9 #### [facility] ([id number]) [address], [address] [place] [address] ABSOLUTE NEUTROPHIL 2.1 X10E9/L Normal 1.5-6.6 [facility] Comment on above: Performed By: #### C BCA, CMP, 81433-1 #### [facility] ([id number]) [address] [place] [address] Basophils/100 WBC (Bld) 1.2 % Normal [facility] Comment on above: Performed By: #### C BCA, CMP, 44860-4 #### [facility] ([id number]) [address] [place] [address] Eosinophils (Bld) [#/Vol] 0.1 10*3/uL Normal 0.0-0.4 [facility] Comment on above: Performed By: #### C ZACHARY, CMP, 99440-5 #### [facility] ([id number]) [address] [place] [address] Eosinophils/100 WBC (Bld) 3.6 % Normal [facility] Comment on above: Performed By: #### Thais SHARMA, CMP, 39197-9 #### [facility] ([id number]) [address] [place] [address] Erythrocyte distribution width (RBC) [Ratio] 15.5 % High 11.5-15.0 [facility] Comment on above: Performed By: #### Thais SHARMA, CMP, 17164-1 #### [facility] ([id number]) [address] [address] [place] [address] Hematocrit (Bld) [Volume fraction] 29.4 % Low 39-49 [facility] Comment on above: Performed By: #### C BCA, CMP, 91577-1 #### [facility] ([id number]) [address], [address] [place] [address] Hemoglobin (Bld) [Mass/Vol] 10.1 g/dL Low 13.0-17.0 [facility] Comment on above: Performed By: #### C BCA, CMP, 09212-0 #### [facility] ([id number]) [address], [address] [place] [address] Lymphocytes (Bld) [#/Vol] 1.0 10*3/uL Normal 1.0-3.5 [facility] Comment on above: Performed By: #### Thais SHARMA CMP, 27761-5 #### [facility] ([id number]) [address], [facility] [address] [place] [address] Lymphocytes/100 WBC (Bld) 28.5 % Normal [facility] Comment on above: Performed By: #### Thais SHARMA CMP, 50195-4 #### [facility] ([id number]) [address], [facility] [address] [place] [address] MCH (RBC) [Entitic mass] 30.8 pg Normal 27-34 [facility] Comment on above: Performed By: #### Thais SHARMA CMP, 44494-6 #### [facility] ([id number]) [address], [address] [place] [address] MCHC (RBC) [Mass/Vol] 34.4 g/dL Normal 32-36 [facility] Comment on above: Performed By: #### Thais SHARMA CMP, 36035-1 #### [facility] ([id number]) [address], [facility] [address] [place] [address] MCV (RBC) [Entitic vol] 89 fL Normal 80-[address] [facility] Comment on above: Performed By: #### Thais SHARMA CMP, 88646-4 #### [facility] ([id number]) [address], [facility] [address] [place] [address] Monocytes (Bld) [#/Vol] 0.3 10*3/uL Normal 0-0.9 [facility] Comment on above: Performed By: #### Thais SHARMA, CMP, 76836-8 #### [facility] ([id number]) [address], [address] [place] [address] Monocytes/100 WBC (Bld) 8.3 % Normal P [facility] Comment on above: Performed By: #### C BCA, CMP, 02855-7 #### [facility] ([id number]) [address], [address] [place] [address] Neutrophils/100 WBC (Bld) 58.4 % Normal [facility] Comment on above: Performed By: #### C BCA, CMP, 61027-2 #### [facility] ([id number]) [address], [address] [place] [address] Platelet mean volume (Bld) [Entitic vol] 7.1 fL Normal 7-12 [facility] Comment on above: Performed By: #### C BCA, CMP, 39493-6 #### [facility] ([id number]) [address], [address] [place] [address] Platelets (Bld) [#/Vol] 264 10*3/uL Normal 150-450 [facility] [facility] Comment on above: Performed By: #### C BCA, CMP, 09254-7 #### [facility] ([id number]) [address], [address] [place] [address] RBC COUNT 3.29 X10E12/L Low 4.10-5.70 [facility] Comment on above: Performed By: #### C BCA, CMP, 15592-8 #### [facility] ([id number]) [address], [address] [place] [address] WBC (Bld) [#/Vol] 3.6 10*3/uL Low 4.0-11.0 [facility] Comment on above: Performed By: #### C BCA, CMP, 42899-3 #### [facility] ([id number]) [address], [address] [place] [address] COMPREHENSIVE METABOLIC PANE Delonte 04-19-2024 Albumin [Mass/Vol] 3.8 g/dL Normal 3.2-5.3 [facility] Comment on above: Performed By: #### C BCA, CMP, 82043-6 #### [facility] ([id number]) [address], [address] [place] [address] ALP [Catalytic activity/Vol] 91 U/L Normal 39-130 [facility] Comment on above: Performed By: #### C BCA, CMP, 72874-8 #### [facility] ([id number]) [address], [address] [place] [address] ALT [Catalytic activity/Vol] 40 U/L Normal 0-40 [facility] Comment on above: Performed By: #### C BCA, CMP, 63198-6 #### [facility] ([id number]) [address], [address] [place] [address] Anion gap [Moles/Vol] 10 mmol/L Normal 5-15 [facility] Comment on above: Performed By: #### C BCA, CMP, 75152-6 #### [facility] ([id number]) [address], [address] [place] [address] AST [Catalytic activity/Vol] 24 U/L Normal 0-41 [facility] Comment on above: Performed By: #### C BCA, CMP, 65329-3 #### [facility] ([id number]) [address], [address] [place] [address] Bilirubin [Mass/Vol] 0.7 mg/dL Normal 0.3-1.2 [facility] Comment on above: Performed By: #### C BCA, CMP, 19880-8 #### [facility] ([id number]) [address], [address] [place] [address] Calcium [Mass/Vol] 9.0 mg/dL Normal 8.5-10.5 [facility] Comment on above: Performed By: #### C BCA, CMP, 30690-0 #### [facility] ([id number]) [address], [address] [place] [address] Chloride [Moles/Vol] 100 mmol/L Normal 98-109 [facility] Comment on above: Performed By: #### C BCA, CMP, 69465-8 #### [facility] ([id number]) [address], [address] [place] [address] CO2 [Moles/Vol] 27 mmol/L Normal 22-32 [facility] Comment on above: Performed By: #### C BCA, CMP, 13844-7 #### [facility] ([id number]) [address], [address] [place] [address] Creatinine [Mass/Vol] 0.62 mg/dL Normal 0.60-1.30 [facility] Comment on above: Result Comment: METH OD TRACEABLE TO IDMS STANDARD Performed By: #### C ZACHARY, CMP, 06051-7 #### [facility] ([id number]) [address], [address] [place] [address] eGFR (CKD-EPI) NON-RACE DEPENDENT >90 Normal >59 [facility] Comment on above: Result Comment: Reported eGFR is based on the CKD-EPI 2020 equation that does not use a race coefficient. Performed By: #### C BCA, CMP, 65374-2 #### [facility] ([id number]) [address], [address] [place] [address] Glucose [Mass/Vol] 124 mg/dL High 65-99 [facility] Comment on above: Performed By: #### C BCA, CMP, 65383-6 #### [facility] ([id number]) [address] [address] [place] [address] Potassium [Moles/Vol] 3.8 mmol/L Normal 3.5-5.0 [facility] Comment on above: Performed By: #### C BCA, CMP, 54199-3 #### [facility] ([id number]) [address], [address] [place] [address] Protein [Mass/Vol] 6.0 g/dL Normal 6.0-8.0 [facility] Comment on above: Performed By: #### C ZACHARY CMP, 41668-9 #### [facility] ([id number]) [address], [address] [place] [address] Sodium [Moles/Vol] 137 mmol/L Normal 134-146 [facility] Comment on above: Performed By: #### C ZACHARY, CMP, 01077-2 #### [facility] ([id number]) [address], [address] [place] [address] Urea nitrogen [Mass/Vol] 7 mg/dL Normal 5-27 [facility] Comment on above: Performed By: #### C NAHOMY SHARMA, 73283-9 #### [facility] ([id number]) [address], [address] [place] [address] Folate [Mass/Vol]on 04-19-20 FOLIC ACID 8.1 ng/mL Normal >5.8 [facility] Comment on above: Result Comment: NEW REFERENCE RANGE Performed By: #### C BCA, CMP, 98707-3 #### [facility] ([id number]) [address], [address] [place] [address] Glucose Glucometer (BldC) [M ass/Vol]on 04-19-2024 Glucose [Mass/Vol] 142 mg/dL High 65-99 [facility] Glucose [Mass/Vol] 129 mg/dL High 65-99 [facility] Glucose [Mass/Vol] 119 mg/dL High 65-99 [facility] Glucose [Mass/Vol] 132 mg/dL High 65-99 [facility] HGB AND HCTon 04-19-2024 Hematocrit (Bld) [Volume fraction] 32.0 % Low 39-49 [facility] Comment on above: Performed By: #### C ZACHARY CMP, 66131-8 #### [facility] ([id number]) [address] [place] [address], [address] [place] [address] Hemoglobin (Bld) [Mass/Vol] 11.1 g/dL Low 13.0-17.0 [facility] Comment on above: Performed By: #### C BCA, CMP, 06736-7 #### [facility] ([id number]) [address] [place] [address], [address] [place] [address] Surgical Pathologyon 024 Surgical Pathology Normal [facility] Comment on above: Result Comment: [facility] [address] [place] [address] Surgical Pathology Consultation Patient Name:VASHTI RIVERA:1955 (Age: 68)Gender:MTaken:4Reported:04/22/2024hysician(s):Joshua Craft MD ( )Copy To: Rec. #:[id number]: #[id number] Final Pathologic Diagnosis 1. Transverse colon polyp: Tubular adenoma. 2. Transverse colon polyp #2; EMR: Tubular adenoma fragments. Report Electronically Signed Out st04/22/2024Bee Ontiveros MD Interpretation performed at [facility], [address] [place], [address], License number: [id number]. Clinical History Iron deficiency anemia, unspecified iron deficiency anemia type. Gross Description 1. Received in formalin labeled BRYSON transverse colon polyp are eight pale black feathery soft tissue bits admixed with friable vegetative material, 0.1-0.6 cm. The specimen is filtered and entirely submitted in a single cassette. (1, ns, [id number],m8) DM. 2. Received in formalin labeled BRYSON transverse colon polyp #2 is a pale-black polyp, 1.1 x 0.8 x 0.5 cm. The resection margin is inked black. The specimen is serially sectioned and entirely submitted in cassette A. Also received in the container are eight pale-black feathery soft tissue fragments, 0.1-0.6 cm. These are submitted in cassette B. (2, ns, [id number],m8) DM. dm/04/20/2024NSK Specimen(s) Received 1: Transverse colon polyp 2: Transverse colon polyp #2; EMR Fee Codes(s): 1; 29980 2; 35411 THYROID PROFILEon 04-19-2024 Free T4 [Mass/Vol] 1.13 ng/dL Normal 0.61-1.60 [facility] Comment on above: Performed By: #### C ZACHARY, [facility], 40105-0 #### [facility] ([id number]) [address], [address] [place] [address] TSH 5.50 uIU/mL High 0.49-4.67 [facility] Comment on above: Performed By: #### C BCA, [facility], 13016-5 #### [facility] ([id number]) [address], [address] [place] [address] Thiamine (Bld) [Mass/Vol]on 04-19-2024 THIAMIN VITAMIN B1 See Below Normal [facility] Comment on above: Result Comment: NOTE [...] developed and its performance characteristics determined by [facility] Yudelka Ollie [facility] [place] ([facility]). It has not been cleared or approved by the FDA. [facility] is regulated under CLIA as qualified to perform high-complexity testing. This test is used for clinical purposes. It should not be regarded as investigational or for research. Test Performed By: [place] [address] Complex Manager: Bijan Murphy III, M.D. CLIA #[id number] Performed By: #### C NAHOMY SHARMA, 85250-1 #### [facility] ([id number]) [address], [address] [place] [address] VITAMIN B12on 04-19-2024 Cobalamin (Vitamin B12) [Mass/Vol] pg/mL High 180-914 [facility] Comment on above: Performed By: #### Thais SHARMA CMP, 95809-6 #### [facility] ([id number]) [address], [address] [place] [address] CBC AND AUTO DIFFon 04-18-20 ABSOLUTE BASOPHIL 0.0 X10E9/L Normal 0.0-0.2 [facility] Comment on above: Performed By: #### Thais SHARMA CMP, 94287-4 #### [facility] ([id number]) [address], [address] [place] [address] ABSOLUTE NEUTROPHIL 2.5 X10E9/L Normal 1.5-6.6 [facility] Comment on above: Performed By: #### Thais SHARMA CMP, 37538-4 #### [facility] ([id number]) [address], [address] [place] [address] Basophils/100 WBC (Bld) 0.9 % Normal P [facility] Comment on above: Performed By: #### Thais SHARMA CMP, 31658-8 #### [facility] ([id number]) [address], [address] [place] [address] Eosinophils (Bld) [#/Vol] 0.1 10*3/uL Normal 0.0-0.4 [facility] Comment on above: Performed By: #### C NAHOMY SHARMA, 23074-3 #### [facility] ([id number]) [address], [address] [place] [address] Eosinophils/100 WBC (Bld) 2.4 % Normal [facility] Comment on above: Performed By: #### C NAHOMY SHARMA, 95083-7 #### [facility] ([id number]) [address], [address] [place] [address] Erythrocyte distribution width (RBC) [Ratio] 15.9 % High 11.5-15.0 [facility] Comment on above: Performed By: #### Thais SHARMA CMP, 84145-8 #### [facility] ([id number]) [address], [address] [place] [address] Hematocrit (Bld) [Volume fraction] 27.5 % Low 39-49 [facility] Comment on above: Performed By: #### Thais SHARMA CMP, 01799-9 #### [facility] ([id number]) [address], [address] [place] [address] Hemoglobin (Bld) [Mass/Vol] 9.6 g/dL Low 13.0-17.0 [facility] Comment on above: Performed By: #### Thais SHARMA CMP, 74306-6 #### [facility] ([id number]) [address], [address] [place] [address] Lymphocytes (Bld) [#/Vol] 0.8 10*3/uL Low 1.0-3.5 [facility] Comment on above: Performed By: #### Thais SHARMA CMP, 32982-2 #### [facility] ([id number]) [address], [address] [place] [address] Lymphocytes/100 WBC (Bld) 22.0 % Normal [facility] Comment on above: Performed By: #### C ZACHARY, CMP, 19789-4 #### [facility] ([id number]) [address], [address] [place] [address] MCH (RBC) [Entitic mass] 31.2 pg Normal 27-34 [facility] Comment on above: Performed By: #### C BCA, CMP, 11338-0 #### [facility] ([id number]) [address], [address] [place] [address] MCHC (RBC) [Mass/Vol] 34.8 g/dL Normal 32-36 [facility] Comment on above: Performed By: #### C BCA, CMP, 27720-5 #### [facility] ([id number]) [address], [address] [place] [address] MCV (RBC) [Entitic vol] 90 fL Normal 80-[address] [facility] Comment on above: Performed By: #### C BCA, CMP, 90671-4 #### [facility] ([id number]) [address], [address] [place] [address] Monocytes (Bld) [#/Vol] 0.2 10*3/uL Normal 0-0.9 [facility] Comment on above: Performed By: #### C BCA, CMP, 65510-4 #### [facility] ([id number]) [address], [address] [place] [address] Monocytes/100 WBC (Bld) 6.4 % Normal P [facility] Comment on above: Performed By: #### C BCA, CMP, 06938-1 #### [facility] ([id number]) [address], [address] [place] [address] Neutrophils/100 WBC (Bld) 68.3 % Normal [facility] Comment on above: Performed By: #### C BCA, CMP, 93649-3 #### [facility] ([id number]) [address] [address] [place] [address] Platelet mean volume (Bld) [Entitic vol] 6.9 fL Low 7-12 [facility] Comment on above: Performed By: #### C BCA, CMP, 94748-8 #### [facility] ([id number]) [address] [address] [place] [address] Platelets (Bld) [#/Vol] 251 10*3/uL Normal 150-450 [facility] Comment on above: Performed By: #### C BCA, CMP, 79891-3 #### [facility] ([id number]) [address] [address] [place] [address] RBC COUNT 3.07 X10E12/L Low 4.10-5.70 [facility] Comment on above: Performed By: #### C BCA, CMP, 17126-4 #### [facility] ([id number]) [address] [address] [place] [address] WBC (Bld) [#/Vol] 3.6 10*3/uL Low 4.0-11.0 [facility] Comment on above: Performed By: #### C BCA, CMP, 50934-7 #### [facility] ([id number]) [address] [address] [place] [address] COMPREHENSIVE METABOLIC PANE Del[place] 04-18-2024 Albumin [Mass/Vol] 3.6 g/dL Normal 3.2-5.3 [facility] Comment on above: Performed By: #### C BCA, CMP, 48403-1 #### [facility] ([id number]) [address] [address] [place] [address] ALP [Catalytic activity/Vol] 85 U/L Normal 39-130 [facility] Comment on above: Performed By: #### C BCA, CMP, 93737-2 #### [facility] ([id number]) [address] [place] [address] ALT [Catalytic activity/Vol] 41 U/L High 0-40 [facility] Comment on above: Performed By: #### C BCA, CMP, 27647-4 #### [facility] ([id number]) [address], [address] [place] [address] Anion gap [Moles/Vol] 11 mmol/L Normal 5-15 [facility] Comment on above: Performed By: #### C BCA, CMP, 34608-6 #### [facility] ([id number]) [address], [address] [place] [address] AST [Catalytic activity/Vol] 26 U/L Normal 0-41 [facility] Comment on above: Performed By: #### Thais SHARMA, CMP, 53157-8 #### [facility] ([id number]) [address], [address] [place] [address] Bilirubin [Mass/Vol] 0.7 mg/dL Normal 0.3-1.2 [facility] Comment on above: Performed By: #### Thais SHARMA, CMP, 89895-6 #### [facility] ([id number]) [address], [address] [place] [address] Calcium [Mass/Vol] 8.6 mg/dL Normal 8.5-10.5 [facility] Comment on above: Performed By: #### C BCA, CMP, 27570-8 #### [facility] ([id number]) [address], [address] [place] [address] Chloride [Moles/Vol] 100 mmol/L Normal 98-109 [facility] Comment on above: Performed By: #### C BCA, CMP, 48739-8 #### [facility] ([id number]) [address], [address] [place] [address] CO2 [Moles/Vol] 25 mmol/L Normal 22-32 [facility] Comment on above: Performed By: #### C NAHOMY SHARMA, 65632-9 #### [facility] ([id number]) [address] [address] [place] [address] Creatinine [Mass/Vol] 0.59 mg/dL Low 0.60-1.30 [facility] Comment on above: Result Comment: METH OD TRACEABLE TO IDMS STANDARD Performed By: #### C NAHOMY SHARMA, 11820-7 #### [facility] ([id number]) [address], [address] [place] [address] eGFR (CKD-EPI) NON-RACE DEPENDENT >90 Normal >59 [facility] Comment on above: Result Comment: Reported eGFR is based on the CKD-EPI 2020 equation that does not use a race coefficient. Performed By: #### C NAHOMY SHARMA, 97431-8 #### [facility] ([id number]) [address], [address] [place] [address] Glucose [Mass/Vol] 104 mg/dL High 65-99 [facility] Comment on above: Performed By: #### C NAHOMY SHARMA, 86807-9 #### [facility] ([id number]) [address] [address] [place] [address] Potassium [Moles/Vol] 3.7 mmol/L Normal 3.5-5.0 [facility] Comment on above: Performed By: #### C ZACHARY CMP, 47039-3 #### [facility] ([id number]) [address], [address] [place] [address] Protein [Mass/Vol] 5.7 g/dL Low 6.0-8.0 [facility] Comment on above: Performed By: #### C BCA, CMP, 38854-9 #### [facility] ([id number]) [address], [address] [place] [address] Sodium [Moles/Vol] 136 mmol/L Normal 134-146 [facility] Comment on above: Performed By: #### Thais SHARMA, NAHOMY, 64195-3 #### [facility] ([id number]) [address], [address] [place] [address] Urea nitrogen [Mass/Vol] 12 mg/dL Normal 5-27 [facility] Comment on above: Performed By: #### Thais SHARMA CMP, 95799-7 #### [facility] ([id number]) [address], [address] [place] [address] Glucose Glucometer (BldC) [M ass/Vol]on 04-18-2024 Glucose [Mass/Vol] 135 mg/dL High 65-99 [facility] Glucose [Mass/Vol] 168 mg/dL High 65-99 [facility] Glucose [Mass/Vol] 169 mg/dL High 65-99 [facility] HGB AND HCTon 04-18-2024 Hematocrit (Bld) [Volume fraction] 27.9 % Low 39-49 [facility] Comment on above: Performed By: #### Thais SHARMA CMP, 16196-6 #### [facility] ([id number]) [address], [address] [place] [address] Hemoglobin (Bld) [Mass/Vol] 9.6 g/dL Low 13.0-17.0 [facility] Comment on above: Performed By: #### Thais SHARMA CMP, 69394-4 #### [facility] ([id number]) [address], [address] [place] [address] POTASSIUMon 04-18-2024 Potassium [Moles/Vol] 4.4 mmol/L Normal 3.5-5.0 [facility] Comment on above: Performed By: #### Thais SHARMA, CMP, 10083-7 #### [facility] ([id number]) [address] [place] [address] CBC AND AUTO DIFFon 04-17-20 24 ABSOLUTE BASOPHIL 0.0 X10E9/L Normal 0.0-0.2 [facility] Comment on above: Performed By: #### Thais SHARMA CMP, 97690-7 #### [facility] ([id number]) [address], [address] [place] [address] ABSOLUTE NEUTROPHIL 2.5 X10E9/L Normal 1.5-6.6 [facility] Comment on above: Performed By: #### Thais SHARMA CMP, 72335-5 #### [facility] ([id number]) [address], [address] [place] [address] Basophils/100 WBC (Bld) 1.0 % Normal [facility] Comment on above: Performed By: #### Thais SHARMA CMP, 61190-5 #### [facility] ([id number]) [address], [address] [place] [address] Eosinophils (Bld) [#/Vol] 0.2 10*3/uL Normal 0.0-0.4 [facility] Comment on above: Performed By: #### Thais SHARMA CMP, 08247-4 #### [facility] ([id number]) [address], [address] [place] [address] Eosinophils/100 WBC (Bld) 4.1 % Normal [facility] Comment on above: Performed By: #### Thais SHARMA CMP, 03905-9 #### [facility] ([id number]) [address], [address] [place] [address] Erythrocyte distribution width (RBC) [Ratio] 16.0 % High 11.5-15.0 [facility] Comment on above: Performed By: #### Thais SHARMA CMP, 15612-9 #### [facility] ([id number]) [address], [address] [place] [address] Hematocrit (Bld) [Volume fraction] 27.8 % Low 39-49 [facility] Comment on above: Performed By: #### C BCA, CMP, 85141-1 #### [facility] ([id number]) [address] [place] [address] Hemoglobin (Bld) [Mass/Vol] 9.7 g/dL Low 13.0-17.0 [facility] Comment on above: Performed By: #### C BCA, CMP, 15178-7 #### [facility] ([id number]) [address], [facility] [address] [place] [address] Lymphocytes (Bld) [#/Vol] 1.0 10*3/uL Normal 1.0-3.5 [facility] Comment on above: Performed By: #### Thais BCA, CMP, 96192-9 #### [facility] ([id number]) [address] [address] [place] [address] Lymphocytes/100 WBC (Bld) 24.3 % Normal [facility] Comment on above: Performed By: #### C BCA, CMP, 15677-0 #### [facility] ([id number]) [address], [facility] [address] [place] [address] MCH (RBC) [Entitic mass] 31.1 pg Normal 27-34 [facility] Comment on above: Performed By: #### Thais BCA, CMP, 19328-0 #### [facility] ([id number]) [address], [address] [place] [address] MCHC (RBC) [Mass/Vol] 35.0 g/dL Normal 32-36 [facility] Comment on above: Performed By: #### C BCA, CMP, 86798-4 #### [facility] ([id number]) [address], [address] [place] [address] MCV (RBC) [Entitic vol] 89 fL Normal 80-[address] [facility] Comment on above: Performed By: #### C BCA, CMP, 37078-8 #### [facility] ([id number]) [address], [address] [place] [address] Monocytes (Bld) [#/Vol] 0.3 10*3/uL Normal 0-0.9 [facility] Comment on above: Performed By: #### C BCA, CMP, 97189-7 #### [facility] ([id number]) [address], [address] [place] [address] Monocytes/100 WBC (Bld) 8.3 % Normal P [facility] Comment on above: Performed By: #### C BCA, CMP, 81159-1 #### [facility] ([id number]) [address], [address] [place] [address] Neutrophils/100 WBC (Bld) 62.3 % Normal [facility] Comment on above: Performed By: #### Thais BCA, CMP, 85981-1 #### [facility] ([id number]) [address], [address] [place] [address] Platelet mean volume (Bld) [Entitic vol] 6.9 fL Low 7-12 [facility] Comment on above: Performed By: #### C BCA, CMP, 66042-9 #### [facility] ([id number]) [address], [address] [place] [address] Platelets (Bld) [#/Vol] 267 10*3/uL Normal 150-450 [facility] Comment on above: Performed By: #### C BCA, CMP, 49968-7 #### [facility] ([id number]) [address], [address] [place] [address] RBC COUNT 3.13 X10E12/L Low 4.10-5.70 [facility] Comment on above: Performed By: #### C BCA, CMP, 81928-1 #### [facility] ([id number]) [address], [address] [place] [address] WBC (Bld) [#/Vol] 4.0 10*3/uL Normal 4.0-11.0 [facility] Comment on above: Performed By: #### C BCA, CMP, 61498-9 #### [facility] ([id number]) [address], [address] [place] [address] COMPREHENSIVE METABOLIC PANE [place] 04-17-2024 Albumin [Mass/Vol] 3.7 g/dL Normal 3.2-5.3 [facility] Comment on above: Performed By: #### C BCA, CMP, 65313-9 #### [facility] ([id number]) [address], [address] [place] [address] ALP [Catalytic activity/Vol] 83 U/L Normal 39-130 [facility] Comment on above: Performed By: #### C BCA, CMP, 04008-4 #### [facility] ([id number]) [address], [address] [place] [address] ALT [Catalytic activity/Vol] 29 U/L Normal 0-40 [facility] Comment on above: Performed By: #### C BCA, CMP, 75070-6 #### [facility] ([id number]) [address], [address] [place] [address] Anion gap [Moles/Vol] 8 mmol/L Normal 5-15 [facility] Comment on above: Performed By: #### C BCA, CMP, 52568-0 #### [facility] ([id number]) [address], [address] [place] [address] AST [Catalytic activity/Vol] 23 U/L Normal 0-41 [facility] Comment on above: Performed By: #### C BCA, CMP, 91675-8 #### [facility] ([id number]) [address], [address] [place] [address] Bilirubin [Mass/Vol] 0.8 mg/dL Normal 0.3-1.2 [facility] Comment on above: Performed By: #### C BCA, CMP, 50983-5 #### [facility] ([id number]) [address], [address] [place] [address] Calcium [Mass/Vol] 8.5 mg/dL Normal 8.5-10.5 [facility] Comment on above: Performed By: #### C BCA, CMP, 13300-0 #### [facility] ([id number]) [address], [address] [place] [address] Chloride [Moles/Vol] 102 mmol/L Normal 98-109 [facility] Comment on above: Performed By: #### C BCA, CMP, 71482-5 #### [facility] ([id number]) [address], [address] [place] [address] CO2 [Moles/Vol] 27 mmol/L Normal 22-32 [facility] Comment on above: Performed By: #### C ZACHARY, CMP, 28483-8 #### [facility] ([id number]) [address], [address] [place] [address] Creatinine [Mass/Vol] 0.61 mg/dL Normal 0.60-1.30 [facility] Comment on above: Result Comment: METH OD TRACEABLE TO IDMS STANDARD Performed By: #### C BCA, CMP, 48434-1 #### [facility] ([id number]) [address], [address] [place] [address] eGFR (CKD-EPI) NON-RACE DEPENDENT >90 Normal >59 [facility] Comment on above: Result Comment: Reported eGFR is based on the CKD-EPI 2020 equation that does not use a race coefficient. Performed By: #### C BCA, CMP, 48401-3 #### [facility] ([id number]) [address], [address] [place] [address] Glucose [Mass/Vol] 123 mg/dL High 65-99 [facility] Comment on above: Performed By: #### C BCA, CMP, 44252-3 #### [facility] ([id number]) [address], [address] [place] [address] Potassium [Moles/Vol] 4.1 mmol/L Normal 3.5-5.0 [facility] Comment on above: Performed By: #### C BCA, CMP, 66852-9 #### [facility] ([id number]) [address], [address] [place] [address] Protein [Mass/Vol] 5.7 g/dL Low 6.0-8.0 [facility] Comment on above: Performed By: #### Thais SHARMA, CMP, 09961-2 #### [facility] ([id number]) [address], [address] [place] [address] Sodium [Moles/Vol] 137 mmol/L Normal 134-146 [facility] Comment on above: Performed By: #### Thais BCA, CMP, 81595-8 #### [facility] ([id number]) [address], [address] [place] [address] Urea nitrogen [Mass/Vol] 16 mg/dL Normal 5-27 [facility] Comment on above: Performed By: #### C BCA, CMP, 29883-3 #### [facility] ([id number]) [address], [address] [place] [address] Glucose Glucometer (BldC) [M ass/Vol]on 04-17-2024 Glucose [Mass/Vol] 97 mg/dL Normal 65-99 [facility] HGB AND HCTon 04-17-2024 Hematocrit (Bld) [Volume fraction] 28.5 % Low 39-49 [facility] Comment on above: Performed By: #### C BCA, CMP, 43264-5 #### [facility] ([id number]) [address], [address] [place] [address] Hemoglobin (Bld) [Mass/Vol] 9.8 g/dL Low 13.0-17.0 [facility] Comment on above: Performed By: #### C ZACHARY, CMP, 35770-3 #### [facility] ([id number]) [address] [place] [address] Hematocrit (Bld) [Volume fraction] 29.3 % Low 39-49 [facility] Comment on above: Performed By: #### C ZACHARY, CMP, 36991-2 #### [facility] ([id number]) [address], [address] [place] [address] Hemoglobin (Bld) [Mass/Vol] 10.0 g/dL Low 13.0-17.0 [facility] Comment on above: Performed By: #### Thais SHARMA, CMP, 38482-6 #### [facility] ([id number]) [address] [place] [address] CBC AND AUTO DIFFon 04-16- 24 Eosinophils (Bld) [#/Vol] 0.1 10*3/uL Normal 0.0-0.4 [facility] Comment on above: Performed By: #### C BCA, CMP ####[facility] ([id number])[address] [address] Eosinophils/100 WBC (Bld) 3.1 % Normal [facility] Comment on above: Performed By: #### C BCA, CMP ####[facility] ([id number])[address] [address] Erythrocyte distribution width (RBC) [Ratio] 16.6 % High 11.5-15.0 [facility] Comment on above: Performed By: #### C BCA, CMP ####[facility] ([id number])[address] [address] Hematocrit (Bld) [Volume fraction] 28.1 % Low 39-49 [facility] Comment on above: Performed By: #### C BCA, CMP ####[facility] ([id number])[address] [address] Hemoglobin (Bld) [Mass/Vol] 9.8 g/dL Low 13.0-17.0 [facility] Comment on above: Performed By: #### C BCA, CMP ####[facility] ([id number])[address] [address] Lymphocytes (Bld) [#/Vol] 1.2 10*3/uL Normal 1.0-3.5 [facility] Comment on above: Performed By: #### C BCA, CMP ####[facility] ([id number])[address] [address] Lymphocytes/100 WBC (Bld) 27.6 % Normal [facility] Comment on above: Performed By: #### C BCA, CMP ####[facility] ([id number])[address] [address] MCH (RBC) [Entitic mass] 31.6 pg Normal 27-34 [facility] Comment on above: Performed By: #### C BCA, CMP ####[facility] ([id number])[address] [address] MCHC (RBC) [Mass/Vol] 34.9 g/dL Normal 32-36 [facility] Comment on above: Performed By: #### C BCA, CMP ####[facility] ([id number])[address] [address] [place] [address] MCV (RBC) [Entitic vol] 91 fL Normal 80-[address] [facility] Comment on above: Performed By: #### C BCA, CMP ####[facility] ([id number])[address], [place] [address] Monocytes (Bld) [#/Vol] 0.2 10*3/uL Normal 0-0.9 [facility] Comment on above: Performed By: #### C BCA, CMP ####[facility] ([id number])[address], [place] [address] Monocytes/100 WBC (Bld) 5.1 % Normal P [facility] Comment on above: Performed By: #### C ZACHARY, CMP ####[facility] ([id number])[address], [place] [address] Neutrophils (Bld) [#/Vol] 2.7 10*3/uL Normal 1.5-6.6 [facility] Comment on above: Performed By: #### C ZACHARY, CMP ####[facility] ([id number])[address], [place] [address] OVALOCYTE 1+ Abnormal NONE [facility] Comment on above: Performed By: #### C ZACHARY, CMP ####[facility] ([id number])[address], [place] [address] Platelet mean volume (Bld) [Entitic vol] 7.1 fL Normal 7-12 [facility] Comment on above: Performed By: #### C BCA, CMP ####[facility] ([id number])[address], [place] [address] Platelets (Bld) [#/Vol] 257 10*3/uL Normal 150-450 [facility] Comment on above: Performed By: #### C BCA, CMP ####[facility] ([id number])[address], [address], [place] [address] POLYCHROMASIA 1+ Abnormal NONE [facility] Comment on above: Performed By: #### C BCA, CMP ####[facility] ([id number])[address] [place] [address] RBC COUNT 3.10 X10E12/L Low 4.10-5.70 [facility] Comment on above: Performed By: #### C BCA, CMP ####[facility] ([id number])[address] [place] [address] SEG NEUTROPHIL 64.2 % Normal [facility] Comment on above: Performed By: #### C BCA, CMP ####[facility] ([id number])[address], [address] [address] WBC (Bld) [#/Vol] 4.2 10*3/uL Normal 4.0-11.0 [facility] Comment on above: Performed By: #### C BCA, CMP ####[facility] ([id number])[address] [place] [address] COMPREHENSIVE METABOLIC PANE Del[place] 04-16-2024 Albumin [Mass/Vol] 3.8 g/dL Normal 3.2-5.3 [facility] Comment on above: Performed By: #### C BCA, CMP ####[facility] ([id number])[address] [place] [address] ALP [Catalytic activity/Vol] 71 U/L Normal 39-130 [facility] Comment on above: Performed By: #### C BCA, CMP ####[facility] ([id number])[address] [place] [address] ALT [Catalytic activity/Vol] 19 U/L Normal 0-40 [facility] Comment on above: Performed By: #### C BCA, CMP ####[facility] ([id number])[address], [address] [place] [address] Anion gap [Moles/Vol] 12 mmol/L Normal 5-15 [facility] Comment on above: Performed By: #### C BCA, CMP ####[facility] ([id number])[address], [place] [address] AST [Catalytic activity/Vol] 16 U/L Normal 0-41 [facility] Comment on above: Performed By: #### C BCA, CMP ####[facility] ([id number])[address], [place] [address] Bilirubin [Mass/Vol] 0.7 mg/dL Normal 0.3-1.2 [facility] Comment on above: Performed By: #### C BCA, CMP ####[facility] ([id number])[address], [address], [place] [address] Calcium [Mass/Vol] 8.4 mg/dL Low 8.5-10.5 [facility] Comment on above: Performed By: #### C BCA, CMP ####[facility] ([id number])[address] [address], [place] [address] Chloride [Moles/Vol] 102 mmol/L Normal 98-109 [facility] Comment on above: Performed By: #### C BCA, CMP ####[facility] ([id number])[address] [address] CO2 [Moles/Vol] 24 mmol/L Normal 22-32 [facility] Comment on above: Performed By: #### C BCA, CMP ####[facility] ([id number])[address], [place] [address] Creatinine [Mass/Vol] 0.60 mg/dL Normal 0.60-1.30 [facility] Comment on above: Result Comment: METH OD TRACEABLE TO IDMS STANDARD Performed By: #### C BCA, CMP ####[facility] ([id number])[address], [place] [address] eGFR (CKD-EPI) NON-RACE DEPENDENT >90 Normal >59 [facility] Comment on above: Result Comment: Reported eGFR is based on the CKD-EPI 2020 equation that does not use a race coefficient. Performed By: #### C BCA, CMP ####[facility] ([id number])[address] [address], [place] [address] Glucose [Mass/Vol] 147 mg/dL High 65-99 [facility] Comment on above: Performed By: #### C BCA, CMP ####[facility] ([id number])[address] [address] Potassium [Moles/Vol] 3.8 mmol/L Normal 3.5-5.0 [facility] Comment on above: Performed By: #### C BCA, CMP ####[facility] ([id number])[address] [address] Protein [Mass/Vol] 5.6 g/dL Low 6.0-8.0 [facility] Comment on above: Performed By: #### C BCA, CMP ####[facility] ([id number])[address] [address] [place] [address], [place] [address] Sodium [Moles/Vol] 138 mmol/L Normal 134-146 [facility] Comment on above: Performed By: #### C BCA, CMP ####[facility] ([id number])[address] [place] [address] Urea nitrogen [Mass/Vol] 13 mg/dL Normal 5-27 [facility] Comment on above: Performed By: #### C BCA, CMP ####[facility] ([id number])[address] [address], [place] [address] Glucose Glucometer (BldC) [M ass/Vol]on 04-16-2024 Glucose [Mass/Vol] 137 mg/dL High 65-99 [facility] Glucose [Mass/Vol] 145 mg/dL High 65-99 [facility] Glucose [Mass/Vol] 144 mg/dL High 65-99 [facility] Glucose [Mass/Vol] 151 mg/dL High 65-99 [facility] Glucose [Mass/Vol] 148 mg/dL High 65-99 [facility] HGB AND HCTon 04-16-2024 Hematocrit (Bld) [Volume fraction] 26.4 % Low 39-49 [facility] Comment on above: Performed By: #### C ZACHARY, CMP, 53103-1 #### [facility] ([id number]) [address] [place] [address] Hemoglobin (Bld) [Mass/Vol] 9.4 g/dL Low 13.0-17.0 [facility] Comment on above: Performed By: #### C ZACHARY, [facility], [address]-8 #### [facility] ([id number]) [address] [place] [address] Hematocrit (Bld) [Volume fraction] 30.2 % Low 39-49 [facility] Comment on above: Performed By: #### H H ####[facility] ([id number])[address], [place] [address] Hemoglobin (Bld) [Mass/Vol] 10.5 g/dL Low 13.0-17.0 [facility] Comment on above: Performed By: #### H H ####[facility] ([id number])[address] [address] Hematocrit (Bld) [Volume fraction] 27.8 % Low 39-49 [facility] Comment on above: Performed By: #### H H ####[facility] ([id number])[address], [place] [address] Hemoglobin (Bld) [Mass/Vol] 9.6 g/dL Low 13.0-17.0 [facility] Comment on above: Performed By: #### H H ####[facility] ([id number])[address] [address] CBC AND AUTO DIFFon 04-15-20 24 Eosinophils (Bld) [#/Vol] 0.3 10*3/uL Normal 0.0-0.4 [facility] Comment on above: Performed By: #### C BCA, CMP ####[facility] ([id number])[address] [address] Eosinophils/100 WBC (Bld) 5.0 % Normal [facility] Comment on above: Performed By: #### C BCA, CMP ####[facility] ([id number])[address] [address] Erythrocyte distribution width (RBC) [Ratio] 16.0 % High 11.5-15.0 [facility] Comment on above: Performed By: #### C BCA, CMP ####[facility] ([id number])[address] [address] Hematocrit (Bld) [Volume fraction] 25.9 % Low 39-49 [facility] Comment on above: Performed By: #### C BCA, CMP ####[facility] ([id number])[address] [address] Hemoglobin (Bld) [Mass/Vol] 9.0 g/dL Low 13.0-17.0 [facility] Comment on above: Performed By: #### C BCA, CMP ####[facility] ([id number])[address] [address] Lymphocytes (Bld) [#/Vol] 1.6 10*3/uL Normal 1.0-3.5 [facility] Comment on above: Performed By: #### C BCA, CMP ####[facility] ([id number])[address], [place] [address] Lymphocytes/100 WBC (Bld) 32.0 % Normal [facility] Comment on above: Performed By: #### C BCA, CMP ####[facility] ([id number])[address] [place] [address] MCH (RBC) [Entitic mass] 31.2 pg Normal 27-34 [facility] Comment on above: Performed By: #### C ZACHARY, CMP ####[facility] ([id number])[address] [place] [address] MCHC (RBC) [Mass/Vol] 34.7 g/dL Normal 32-36 [facility] Comment on above: Performed By: #### C ZACHARY, CMP ####[facility] ([id number])[address], [place] [address] MCV (RBC) [Entitic vol] 90 fL Normal 80-[address] [facility] Comment on above: Performed By: #### C ZACHARY, CMP ####[facility] ([id number])[address] [place] [address] Monocytes (Bld) [#/Vol] 0.4 10*3/uL Normal 0-0.9 [facility] Comment on above: Performed By: #### C BCA, CMP ####[facility] ([id number])[address] [address] Monocytes/100 WBC (Bld) 9.0 % Normal P [facility] Comment on above: Performed By: #### C BCA, CMP ####[facility] ([id number])[address], [place] [address] Neutrophils (Bld) [#/Vol] 2.7 10*3/uL Normal 1.5-6.6 [facility] Comment on above: Performed By: #### C ZACHARY, CMP ####[facility] ([id number])[address], [place] [address] Platelet mean volume (Bld) [Entitic vol] 7.0 fL Normal 7-12 [facility] Comment on above: Performed By: #### C ZACHARY, CMP ####[facility] ([id number])[address], [place] [address] Platelets (Bld) [#/Vol] 225 10*3/uL Normal 150-450 [facility] Comment on above: Performed By: #### C ZACHARY, CMP ####[facility] ([id number])[address], [place] [address] POLYCHROMASIA 1+ Abnormal NONE [facility] Comment on above: Performed By: #### C ZACHARY, CMP ####[facility] ([id number])[address], [place] [address] RBC COUNT 2.88 X10E12/L Low 4.10-5.70 [facility] Comment on above: Performed By: #### C ZACHARY, CMP ####[facility] ([id number])[address], [place] [address] SEG NEUTROPHIL 54.0 % Normal [facility] Comment on above: Performed By: #### C ZACHARY, CMP ####[facility] ([id number])[address] [place] [address] WBC (Bld) [#/Vol] 5.0 10*3/uL Normal 4.0-11.0 [facility] Comment on above: Performed By: #### C BCA, CMP ####[facility] ([id number])[address] [place] [address] COMPREHENSIVE METABOLIC PANE [place] 06-20-2024 Albumin [Mass/Vol] 3.5 g/dL Normal 3.2-5.3 [facility] Comment on above: Performed By: #### C BCA, CMP ####[facility] ([id number])[address], [place] [address] ALP [Catalytic activity/Vol] 64 U/L Normal 39-130 [facility] Comment on above: Performed By: #### C BCA, CMP ####[facility] ([id number])[address], [place] [address] ALT [Catalytic activity/Vol] 18 U/L Normal 0-40 [facility] Comment on above: Performed By: #### C BCA, CMP ####[facility] ([id number])[address], [place] [address] Anion gap [Moles/Vol] 8 mmol/L Normal 5-15 [facility] Comment on above: Performed By: #### C BCA, CMP ####[facility] ([id number])[address], [place] [address] AST [Catalytic activity/Vol] 18 U/L Normal 0-41 [facility] Comment on above: Performed By: #### C BCA, CMP ####[facility] ([id number])[address], [place] [address] Bilirubin [Mass/Vol] 0.7 mg/dL Normal 0.3-1.2 [facility] Comment on above: Performed By: #### C BCA, CMP ####[facility] ([id number])[address], [place] [address] Calcium [Mass/Vol] 8.3 mg/dL Low 8.5-10.5 [facility] Comment on above: Performed By: #### C BCA, CMP ####[facility] ([id number])[address] [place] [address] Chloride [Moles/Vol] 100 mmol/L Normal 98-109 [facility] Comment on above: Performed By: #### C BCA, CMP ####[facility] ([id number])[address] [place] [address] CO2 [Moles/Vol] 28 mmol/L Normal 22-32 [facility] Comment on above: Performed By: #### C BCA, CMP ####[facility] ([id number])[address] [address] [address] Creatinine [Mass/Vol] 0.56 mg/dL Low 0.60-1.30 [facility] Comment on above: Result Comment: METH OD TRACEABLE TO IDMS STANDARD Performed By: #### C BCA, CMP ####[facility] ([id number])[address] [address], [place] [address] eGFR (CKD-EPI) NON-RACE DEPENDENT >90 Normal >59 [facility] Comment on above: Result Comment: Reported eGFR is based on the CKD-EPI 2020 equation that does not use a race coefficient. Performed By: #### C BCA, CMP ####[facility] ([id number])[address] [address], [place] [address] Glucose [Mass/Vol] 152 mg/dL High 65-99 [facility] Comment on above: Performed By: #### C BCA, CMP ####[facility] ([id number])[address] [address] [place] [address] Potassium [Moles/Vol] 4.2 mmol/L Normal 3.5-5.0 [facility] Comment on above: Performed By: #### C BCA, CMP ####[facility] ([id number])[address] [address] [place] [address] Protein [Mass/Vol] 5.4 g/dL Low 6.0-8.0 [facility] Comment on above: Performed By: #### C BCA, CMP ####[facility] ([id number])[address] [place] [id number] Sodium [Moles/Vol] 136 mmol/L Normal 134-146 [facility] Comment on above: Performed By: #### C BCA, CMP ####[facility] ([id number])[address], [address] [place] [address] Urea nitrogen [Mass/Vol] 14 mg/dL Normal 5-27 [facility] Comment on above: Performed By: #### C BCA, CMP ####[facility] ([id number])[address], [address] [place] [address] Glucose Glucometer (BldC) [M ass/Vol]on 04-15-2024 Glucose [Mass/Vol] 159 mg/dL High 65-99 [facility] Glucose [Mass/Vol] 146 mg/dL High 65-99 [facility] Glucose [Mass/Vol] 145 mg/dL High 65-99 [facility] Glucose [Mass/Vol] 153 mg/dL High 65-99 [facility] Glucose [Mass/Vol] 164 mg/dL High 65-99 [facility] HGB AND HCTon 04-15-2024 Hematocrit (Bld) [Volume fraction] 27.1 % Low 39-49 [facility] Comment on above: Performed By: #### H H ####[facility] ([id number])[address] [address] [place] [address] Hemoglobin (Bld) [Mass/Vol] 9.3 g/dL Low 13.0-17.0 [facility] Comment on above: Performed By: #### H H ####[facility] ([id number])[address], [address] [place] [address] Hematocrit (Bld) [Volume fraction] 26.9 % Low 39-49 [facility] Comment on above: Performed By: #### H H ####[facility] ([id number])[address], [address] [place] [address] Hemoglobin (Bld) [Mass/Vol] 9.5 g/dL Low 13.0-17.0 [facility] Comment on above: Performed By: #### H H ####[facility] ([id number])[address], [address], [place] [address] Hematocrit (Bld) [Volume fraction] 27.2 % Low 39-49 [facility] Comment on above: Performed By: #### H H ####[facility] ([id number])[address], [address], [place] [address] Hemoglobin (Bld) [Mass/Vol] 9.4 g/dL Low 13.0-17.0 [facility] Comment on above: Performed By: #### H H ####[facility] ([id number])[address], [address], [place] [address] CBC AND AUTO DIFFon 04-14-20 24 Band form neutrophils/100 WBC (Bld) 1.0 % Normal [facility] Comment on above: Performed By: #### U A #### [facility] ([id number]) [address], [address] [place] [address] Eosinophils (Bld) [#/Vol] 0.5 10*3/uL High 0.0-0.4 [facility] Comment on above: Performed By: #### U A #### [facility] ([id number]) [address], [address] [place] [address] Eosinophils/100 WBC (Bld) 7.0 % Normal [facility] Comment on above: Performed By: #### U A #### [facility] ([id number]) [address] [place] [address] Erythrocyte distribution width (RBC) [Ratio] 15.8 % High 11.5-15.0 [facility] Comment on above: Performed By: #### U A #### [facility] ([id number]) [address] [address] [place] [address] Hematocrit (Bld) [Volume fraction] 25.8 % Low 39-49 [facility] Comment on above: Performed By: #### U A #### [facility] ([id number]) [address] [address] [place] [address] Hemoglobin (Bld) [Mass/Vol] 9.0 g/dL Low 13.0-17.0 [facility] Comment on above: Performed By: #### U A #### [facility] ([id number]) [address] [address] [place] [address] IMMATURE MONONUCLEAR 1.0 % Normal [facility] Comment on above: Performed By: #### U A #### [facility] ([id number]) [address] [address] [place] [address] Lymphocytes (Bld) [#/Vol] 1.7 10*3/uL Normal 1.0-3.5 [facility] Comment on above: Performed By: #### U A #### [facility] ([id number]) [address] [address] [place] [address] Lymphocytes/100 WBC (Bld) 23.0 % Normal [facility] Comment on above: Performed By: #### U A #### [facility] ([id number]) [address], [address] [place] [address] MCH (RBC) [Entitic mass] 31.0 pg Normal 27-34 [facility] Comment on above: Performed By: #### U A #### [facility] ([id number]) [address] [place] [address] MCHC (RBC) [Mass/Vol] 34.9 g/dL Normal 32-36 [facility] Comment on above: Performed By: #### U A #### [facility] ([id number]) [address] [place] [address] MCV (RBC) [Entitic vol] 89 fL Normal 80-[address] [facility] Comment on above: Performed By: #### U A #### [facility] ([id number]) [address], [address] [place] [address] Metamyelocytes/100 WBC (Bld) 1.0 % Normal [facility] Comment on above: Performed By: #### U A #### [facility] ([id number]) [address], [address] [place] [address] Monocytes (Bld) [#/Vol] 0.5 10*3/uL Normal 0-0.9 [facility] Comment on above: Performed By: #### U A #### [facility] ([id number]) [address] [place] [address] Monocytes/100 WBC (Bld) 7.0 % Normal P [facility] Comment on above: Performed By: #### U A #### [facility] ([id number]) [address], [address] [place] [address] MYELOCYTE 1.0 % Normal [facility] Comment on above: Performed By: #### U A #### [facility] ([id number]) [address], [address] [place] [address] Neutrophils (Bld) [#/Vol] 4.4 10*3/uL Normal 1.5-6.6 [facility] Comment on above: Performed By: #### U A #### [facility] ([id number]) [address], [address] [place] [address] NUCLEATED RBC 1.0 /100 WBC Normal 0.0-1.0 [facility] Comment on above: Performed By: #### U A #### [facility] ([id number]) [address], [address] [place] [address] Platelet mean volume (Bld) [Entitic vol] 7.2 fL Normal 7-12 [facility] Comment on above: Performed By: #### U A #### [facility] ([id number]) [address], [address] [place] [address] Platelets (Bld) [#/Vol] 241 10*3/uL Normal 150-450 [facility] Comment on above: Performed By: #### U A #### [facility] ([id number]) [address], [address] [place] [address] POLYCHROMASIA 1+ Abnormal NONE [facility] Comment on above: Performed By: #### U A #### [facility] ([id number]) [address], [address] [place] [address] RBC COUNT 2.90 X10E12/L Low 4.10-5.70 [facility] Comment on above: Performed By: #### U A #### [facility] ([id number]) [address], [address] [place] [address] SEG NEUTROPHIL 59.0 % Normal [facility] Comment on above: Performed By: #### U A #### [facility] ([id number]) [address], [address] [place] [address] WBC (Bld) [#/Vol] 7.4 10*3/uL Normal 4.0-11.0 [facility] Comment on above: Performed By: #### U A #### [facility] ([id number]) [address], [address] [place] [address] COMPREHENSIVE METABOLIC PANE Del[place] 04-14-2024 Albumin [Mass/Vol] 3.6 g/dL Normal 3.2-5.3 [facility] Comment on above: Performed By: #### U A #### [facility] ([id number]) [address] [place] [address] ALP [Catalytic activity/Vol] 55 U/L Normal 39-130 [facility] Comment on above: Performed By: #### U A #### [facility] ([id number]) [address], [address] [place] [address] ALT [Catalytic activity/Vol] 10 U/L Normal 0-40 [facility] Comment on above: Performed By: #### U A #### [facility] ([id number]) [address], [address] [place] [address] Anion gap [Moles/Vol] 10 mmol/L Normal 5-15 [facility] Comment on above: Performed By: #### U A #### [facility] ([id number]) [address] [place] [address] AST [Catalytic activity/Vol] 12 U/L Normal 0-41 [facility] Comment on above: Performed By: #### U A #### [facility] ([id number]) [address], [address] [place] [address] Bilirubin [Mass/Vol] 0.7 mg/dL Normal 0.3-1.2 [facility] Comment on above: Performed By: #### U A #### [facility] ([id number]) [address], [address] [place] [address] Calcium [Mass/Vol] 8.4 mg/dL Low 8.5-10.5 [facility] Comment on above: Performed By: #### U A #### [facility] ([id number]) [address] [place] [address] Chloride [Moles/Vol] 100 mmol/L Normal 98-109 [facility] Comment on above: Performed By: #### U A #### [facility] ([id number]) [address], [address] [place] [address] CO2 [Moles/Vol] 26 mmol/L Normal 22-32 [facility] Comment on above: Performed By: #### U A #### [facility] ([id number]) [address], [address] [place] [address] Creatinine [Mass/Vol] 0.61 mg/dL Normal 0.60-1.30 [facility] Comment on above: Result Comment: METH OD TRACEABLE TO IDMS STANDARD Performed By: #### U A #### [facility] ([id number]) [address], [address] [place] [address] eGFR (CKD-EPI) NON-RACE DEPENDENT >90 Normal >59 [facility] Comment on above: Result Comment: Reported eGFR is based on the CKD-EPI 2020 equation that does not use a race coefficient. Performed By: #### U A #### [facility] ([id number]) [address] [place] [address] Glucose [Mass/Vol] 189 mg/dL High 65-99 [facility] Comment on above: Performed By: #### U A #### [facility] ([id number]) [address] [place] [address] Potassium [Moles/Vol] 4.0 mmol/L Normal 3.5-5.0 [facility] Comment on above: Performed By: #### U A #### [facility] ([id number]) [address] [place] [address] Protein [Mass/Vol] 5.6 g/dL Low 6.0-8.0 [facility] Comment on above: Performed By: #### U A #### [facility] ([id number]) [address], [address] [place] [address] Sodium [Moles/Vol] 136 mmol/L Normal 134-146 [facility] Comment on above: Performed By: #### U A #### [facility] ([id number]) [address], [address] [place] [address] Urea nitrogen [Mass/Vol] 23 mg/dL Normal 5-27 [facility] Comment on above: Performed By: #### U A #### [facility] ([id number]) [address], [address] [place] [address] Glucose Glucometer (BldC) [M ass/Vol]on 04-14-2024 Glucose [Mass/Vol] 148 mg/dL High 65-99 [facility] Glucose [Mass/Vol] 158 mg/dL High 65-99 [facility] Glucose [Mass/Vol] 180 mg/dL High 65-99 [facility] Glucose [Mass/Vol] 185 mg/dL High 65-99 [facility] HGB AND HCTon 04-14-2024 Hematocrit (Bld) [Volume fraction] 26.1 % Low 39-49 [facility] Comment on above: Performed By: #### U A #### [facility] ([id number]) [address], [address] [place] [address] Hemoglobin (Bld) [Mass/Vol] 9.2 g/dL Low 13.0-17.0 [facility] Comment on above: Performed By: #### U A #### [facility] ([id number]) [address], [address] [place] [address] Hematocrit (Bld) [Volume fraction] 26.2 % Low 39-49 [facility] Comment on above: Performed By: #### U A #### [facility] ([id number]) [address] [place] [address] Hemoglobin (Bld) [Mass/Vol] 8.7 g/dL Low 13.0-17.0 [facility] Comment on above: Performed By: #### U A #### [facility] ([id number]) [address] [place] [address] TTG AB IGA IGGon 04-14-2024 TTG AB IGA <1.2 Normal <4.0 (Negative) [facility] TTG AB IGG <1.2 Normal <6.0 (Negative) [facility] Comment on above: Result Comment: NOTE Test Performed by: [facility] [address] [place], [place] [id number] [employer] Teacher: Naty Doyle Ph.D.; CLIA# [id number] CBC AND AUTO DIFFon 04-13-20 Eosinophils (Bld) [#/Vol] 0.2 10*3/uL Normal 0.0-0.4 [facility] Comment on above: Performed By: #### C BCA, CMP ####[facility] ([id number])[address] [place] [address] Eosinophils/100 WBC (Bld) 3.0 % Normal [facility] Comment on above: Performed By: #### C BCA, CMP ####[facility] ([id number])[address] [address] Erythrocyte distribution width (RBC) [Ratio] 14.4 % Normal 11.5-15.0 [facility] Comment on above: Performed By: #### C BCA, CMP ####[facility] ([id number])[address], [address] [place] [address] Hematocrit (Bld) [Volume fraction] 17.2 % Low 39-49 [facility] Comment on above: Performed By: #### C BCA, CMP ####[facility] ([id number])[address], [place] [address] Hemoglobin (Bld) [Mass/Vol] 5.8 g/dL Critically low 13.0-17.0 [facility] Comment on above: Performed By: #### C BCA, CMP ####[facility] ([id number])[address], [place] [address] Lymphocytes (Bld) [#/Vol] 2.1 10*3/uL Normal 1.0-3.5 [facility] Comment on above: Performed By: #### C ZACHARY, CMP ####[facility] ([id number])[address], [place] [address] Lymphocytes/100 WBC (Bld) 27.0 % Normal [facility] Comment on above: Performed By: #### C ZACHARY, CMP ####[facility] ([id number])[address], [place] [address] MCH (RBC) [Entitic mass] 30.4 pg Normal 27-34 [facility] Comment on above: Performed By: #### C BCA, CMP ####[facility] ([id number])[address], [place] [address] MCHC (RBC) [Mass/Vol] 33.9 g/dL Normal 32-36 [facility] Comment on above: Performed By: #### C BCA, CMP ####[facility] ([id number])[address], [place] [address] MCV (RBC) [Entitic vol] 90 fL Normal 80-[address] [facility] Comment on above: Performed By: #### C BCA, CMP ####[facility] ([id number])[address], [address], [place] [address] Metamyelocytes/100 WBC (Bld) 1.0 % Normal [facility] Comment on above: Performed By: #### C BCA, CMP ####[facility] ([id number])[address] [place] [address] Monocytes (Bld) [#/Vol] 0.4 10*3/uL Normal 0-0.9 [facility] Comment on above: Performed By: #### C BCA, CMP ####[facility] ([id number])[address] [place] [address] Monocytes/100 WBC (Bld) 5.0 % Normal P [facility] Comment on above: Performed By: #### C BCA, CMP ####[facility] ([id number])[address] [address], [place] [address] Neutrophils (Bld) [#/Vol] 4.8 10*3/uL Normal 1.5-6.6 [facility] Comment on above: Performed By: #### C BCA, CMP ####[facility] ([id number])[address] [address], [place] [address] NUCLEATED RBC 1.0 /100 WBC Normal 0.0-1.0 [facility] Comment on above: Performed By: #### C BCA, CMP ####[facility] ([id number])[address] [address] [place] [address] Platelet mean volume (Bld) [Entitic vol] 7.3 fL Normal 7-12 [facility] Comment on above: Performed By: #### C BCA, CMP ####[facility] ([id number])[address] [address] [place] [address] Platelets (Bld) [#/Vol] 259 10*3/uL Normal 150-450 [facility] Comment on above: Performed By: #### C BCA, CMP ####[facility] ([id number])[address] [address] POLYCHROMASIA 2+ Abnormal NONE [facility] Comment on above: Performed By: #### C BCA, CMP ####[facility] ([id number])[address] [address] RBC COUNT 1.92 X10E12/L Low 4.10-5.70 [facility] Comment on above: Performed By: #### C BCA, CMP ####[facility] ([id number])[address] [place] [address] SEG NEUTROPHIL 64.0 % Normal [facility] Comment on above: Performed By: #### C BCA, CMP ####[facility] ([id number])[address] [address] WBC (Bld) [#/Vol] 7.6 10*3/uL Normal 4.0-11.0 [facility] Comment on above: Performed By: #### C BCA, CMP ####[facility] ([id number])[address] [address] COMPREHENSIVE METABOLIC PANE [place] 04-13-2024 Albumin [Mass/Vol] 3.3 g/dL Normal 3.2-5.3 [facility] Comment on above: Performed By: #### C BCA, CMP ####[facility] ([id number])[address] [address] [place] [address] ALP [Catalytic activity/Vol] 48 U/L Normal 39-130 [facility] Comment on above: Performed By: #### C BCA, CMP ####[facility] ([id number])[address] [address] [place] [address] ALT [Catalytic activity/Vol] 8 U/L Normal 0-40 [facility] Comment on above: Performed By: #### C BCA, CMP ####[facility] ([id number])[address], [place] [address] Anion gap [Moles/Vol] 8 mmol/L Normal 5-15 [facility] Comment on above: Performed By: #### C BCA, CMP ####[facility] ([id number])[address], [place] [address] AST [Catalytic activity/Vol] 7 U/L Normal 0-41 [facility] Comment on above: Performed By: #### C BCA, CMP ####[facility] ([id number])[address] [address], [place] [address] Bilirubin [Mass/Vol] 0.5 mg/dL Normal 0.3-1.2 [facility] Comment on above: Performed By: #### C BCA, CMP ####[facility] ([id number])[address] [address], [place] [address] Calcium [Mass/Vol] 8.4 mg/dL Low 8.5-10.5 [facility] Comment on above: Performed By: #### C BCA, CMP ####[facility] ([id number])[address] [address], [place] [address] Chloride [Moles/Vol] 102 mmol/L Normal 98-109 [facility] Comment on above: Performed By: #### C BCA, CMP ####[facility] ([id number])[address] [address], [place] [address] CO2 [Moles/Vol] 27 mmol/L Normal 22-32 [facility] Comment on above: Performed By: #### C BCA, CMP ####[facility] ([id number])[address], [place] [address] Creatinine [Mass/Vol] 0.64 mg/dL Normal 0.60-1.30 [facility] Comment on above: Result Comment: METH OD TRACEABLE TO IDMS STANDARD Performed By: #### C BCA, CMP ####[facility] ([id number])[address] [address], [place] [address] eGFR (CKD-EPI) NON-RACE DEPENDENT >90 Normal >59 [facility] Comment on above: Result Comment: Reported eGFR is based on the CKD-EPI 2020 equation that does not use a race coefficient. Performed By: #### C BCA, CMP ####[facility] ([id number])[address] [address], [place] [address] Glucose [Mass/Vol] 218 mg/dL High 65-99 [facility] Comment on above: Performed By: #### C BCA, CMP ####[facility] ([id number])[address] [address], [place] [address] Potassium [Moles/Vol] 3.7 mmol/L Normal 3.5-5.0 [facility] Comment on above: Performed By: #### C BCA, CMP ####[facility] ([id number])[address] [address], [place] [address] Protein [Mass/Vol] 4.9 g/dL Low 6.0-8.0 [facility] Comment on above: Performed By: #### C BCA, CMP ####[facility] ([id number])[address] [address] [place] [address] Sodium [Moles/Vol] 137 mmol/L Normal 134-146 [facility] Comment on above: Performed By: #### C BCA, CMP ####[facility] ([id number])[address] [address], [place] [address] Urea nitrogen [Mass/Vol] 35 mg/dL High 5-27 [facility] Comment on above: Performed By: #### C BCA, CMP ####[facility] ([id number])[address] [address] [place] [address] CTA ABD AND PELVISon 03-27 CT [...] Ruth MD on 04/13/2024 5:08 PM Normal [facility] Glucose Glucometer (BldC) [M ass/Vol]on 04-13-2024 Glucose [Mass/Vol] 195 mg/dL High 65-99 [facility] Glucose [Mass/Vol] 215 mg/dL High 65-99 [facility] Glucose [Mass/Vol] 214 mg/dL High 65-99 [facility] Glucose [Mass/Vol] 208 mg/dL High 65-99 [facility] HGB AND HCTon 04-13-2024 Hematocrit (Bld) [Volume fraction] 24.2 % Low 39-49 [facility] Comment on above: Performed By: #### U A #### [facility] ([id number]) [address] [place] [address] Hemoglobin (Bld) [Mass/Vol] 8.5 g/dL Low 13.0-17.0 [facility] Comment on above: Performed By: #### U A #### [facility] ([id number]) [address] [place] [address] Hematocrit (Bld) [Volume fraction] 22.5 % Low 39-49 [facility] Comment on above: Performed By: #### H H ####[facility] ([id number])[address] [address] Hemoglobin (Bld) [Mass/Vol] 7.8 g/dL Low 13.0-17.0 [facility] Comment on above: Performed By: #### H H ####[facility] ([id number])[address] [address] Hematocrit (Bld) [Volume fraction] 16.3 % Low 39-49 [facility] Comment on above: Performed By: #### H H ####[facility] ([id number])[address] [place] [address] Hemoglobin (Bld) [Mass/Vol] 5.9 g/dL Critically low 13.0-17.0 [facility] Comment on above: Performed By: #### H H ####[facility] ([id number])[address], [place] [address] CBC AND AUTO DIFFon 04-12-20 24 ABSOLUTE BASOPHIL 0.0 X10E9/L Normal 0.0-0.2 [facility] Comment on above: Performed By: #### C BCA, CMP #### [facility] ([id number]) [address] [place] [address] ABSOLUTE NEUTROPHIL 4.8 X10E9/L Normal 1.5-6.6 [facility] Comment on above: Performed By: #### C BCA, CMP #### [facility] ([id number]) [address] [place] [address] Basophils/100 WBC (Bld) 0.6 % Normal [facility] Comment on above: Performed By: #### C ZACHARY, CMP #### [facility] ([id number]) [address] [place] [address] Eosinophils (Bld) [#/Vol] 0.0 10*3/uL Normal 0.0-0.4 [facility] Comment on above: Performed By: #### C ZACHARY, CMP #### [facility] ([id number]) [address] [place] [address] Eosinophils/100 WBC (Bld) 0.5 % Normal [facility] Comment on above: Performed By: #### C ZACHARY, CMP #### [facility] ([id number]) [address] [place] [address] Erythrocyte distribution width (RBC) [Ratio] 14.4 % Normal 11.5-15.0 [facility] Comment on above: Performed By: #### C BCA, CMP #### [facility] ([id number]) [address] [place] [address] Hematocrit (Bld) [Volume fraction] 22.5 % Low 39-49 [facility] Comment on above: Performed By: #### C BCA, CMP #### [facility] ([id number]) [address] [place] [address] Hemoglobin (Bld) [Mass/Vol] 7.9 g/dL Low 13.0-17.0 [facility] Comment on above: Performed By: #### C BCA, CMP #### [facility] ([id number]) [address] [address] Lymphocytes (Bld) [#/Vol] 1.6 10*3/uL Normal 1.0-3.5 [facility] Comment on above: Performed By: #### C BCA, CMP #### [facility] ([id number]) [address] [address] Lymphocytes/100 WBC (Bld) 22.9 % Normal [facility] Comment on above: Performed By: #### C BCA, CMP #### [facility] ([id number]) [address] [address] MCH (RBC) [Entitic mass] 31.4 pg Normal 27-34 [facility] Comment on above: Performed By: #### C BCA, CMP #### [facility] ([id number]) [address] [address] [place] [address] MCHC (RBC) [Mass/Vol] 35.1 g/dL Normal 32-36 [facility] Comment on above: Performed By: #### C BCA, CMP #### [facility] ([id number]) [address] [address] MCV (RBC) [Entitic vol] 90 fL Normal 80-100 [facility] Comment on above: Performed By: #### C BCA, CMP #### [facility] ([id number]) [address] [address] Monocytes (Bld) [#/Vol] 0.4 10*3/uL Normal 0-0.9 [facility] Comment on above: Performed By: #### C BCA, CMP #### [facility] ([id number]) [address] [place] [address] Monocytes/100 WBC (Bld) 5.7 % Normal [facility] Comment on above: Performed By: #### C BCA, CMP #### [facility] ([id number]) [address], [address] [place] [address] Neutrophils/100 WBC (Bld) 70.3 % Normal [facility] Comment on above: Performed By: #### C BCA, CMP #### [facility] ([id number]) [address], [address] [place] [address] Platelet mean volume (Bld) [Entitic vol] 7.4 fL Normal 7-12 [facility] Comment on above: Performed By: #### C ZACHARY, CMP #### [facility] ([id number]) [address] [address] [place] [address] Platelets (Bld) [#/Vol] 281 10*3/uL Normal 150-450 [facility] Comment on above: Performed By: #### C BCA, CMP #### [facility] ([id number]) [address], [facility] [address] [place] [address] RBC COUNT 2.52 X10E12/L Low 4.10-5.70 [facility] Comment on above: Performed By: #### C BCA, CMP #### [facility] ([id number]) [address], [address] [place] [address] WBC (Bld) [#/Vol] 6.9 10*3/uL Normal 4.0-11.0 [facility] Comment on above: Performed By: #### C BCA, CMP #### [facility] ([id number]) [address], [address] [place] [address] COMPREHENSIVE METABOLIC PANE [place] 04-12-2024 Albumin [Mass/Vol] 3.9 g/dL Normal 3.2-5.3 [facility] Comment on above: Performed By: #### C BCA, CMP #### [facility] ([id number]) [address], [address] [place] [address] ALP [Catalytic activity/Vol] 58 U/L Normal 39-130 [facility] Comment on above: Performed By: #### C BCA, CMP #### [facility] ([id number]) [address], [address] [place] [address] ALT [Catalytic activity/Vol] 9 U/L Normal 0-40 [facility] Comment on above: Performed By: #### C BCA, CMP #### [facility] ([id number]) [address], [address] [place] [address] Anion gap [Moles/Vol] 9 mmol/L Normal 5-15 [facility] Comment on above: Performed By: #### C BCA, CMP #### [facility] ([id number]) [address], [address] [place] [address] AST [Catalytic activity/Vol] 9 U/L Normal 0-41 [facility] Comment on above: Performed By: #### C BCA, CMP #### [facility] ([id number]) [address], [address] [place] [address] Bilirubin [Mass/Vol] 0.6 mg/dL Normal 0.3-1.2 [facility] Comment on above: Performed By: #### C BCA, CMP #### [facility] ([id number]) [address], [address] [place] [address] Calcium [Mass/Vol] 8.8 mg/dL Normal 8.5-10.5 [facility] Comment on above: Performed By: #### C BCA, CMP #### [facility] ([id number]) [address], [address] [place] [address] Chloride [Moles/Vol] 104 mmol/L Normal 98-109 [facility] Comment on above: Performed By: #### C BCA, CMP #### [facility] ([id number]) [address], [address] [place] [address] CO2 [Moles/Vol] 27 mmol/L Normal 22-32 [facility] Comment on above: Performed By: #### C BCA, CMP #### [facility] ([id number]) [address], [address] [place] [address] Creatinine [Mass/Vol] 0.62 mg/dL Normal 0.60-1.30 [facility] Comment on above: Result Comment: METH OD TRACEABLE TO IDMS STANDARD Performed By: #### C BCA, CMP #### [facility] ([id number]) [address], [address] [place] [address] eGFR (CKD-EPI) NON-RACE DEPENDENT >90 Normal >59 [facility] Comment on above: Result Comment: Reported eGFR is based on the CKD-EPI 2020 equation that does not use a race coefficient. Performed By: #### C BCA, CMP #### [facility] ([id number]) [address], [address] [place] [address] Glucose [Mass/Vol] 206 mg/dL High 65-99 [facility] Comment on above: Performed By: #### C BCA, CMP #### [facility] ([id number]) [address], [address] [place] [address] Potassium [Moles/Vol] 3.7 mmol/L Normal 3.5-5.0 [facility] Comment on above: Performed By: #### C BCA, CMP #### [facility] ([id number]) [address], [address] [place] [address] Protein [Mass/Vol] 5.8 g/dL Low 6.0-8.0 [facility] Comment on above: Performed By: #### C BCA, CMP #### [facility] ([id number]) [address] [place] [address] Sodium [Moles/Vol] 140 mmol/L Normal 134-146 [facility] Comment on above: Performed By: #### C ZACHARY, CMP #### [facility] ([id number]) [address], [address] [place] [address] Urea nitrogen [Mass/Vol] 24 mg/dL Normal 5-27 [facility] Comment on above: Performed By: #### C ZACHARY, CMP #### [facility] ([id number]) [address], [address] [place] [address] Glucose Glucometer (BldC) [M ass/Vol]on 04-12-2024 Glucose [Mass/Vol] 231 mg/dL High 65-99 [facility] Glucose [Mass/Vol] 201 mg/dL High 65-99 [facility] Glucose [Mass/Vol] 265 mg/dL High 65-99 [facility] Glucose [Mass/Vol] 242 mg/dL High 65-99 [facility] comment Harsh (Repo rt)on 04-12-2024 PLATELET INHIB,P2Y12 324 PRU Normal [facility] Comment on above: Result Comment: Low hematocrit, low platelet count and some hereditary disorders may affect results. Normal platelet reactivity due to low P2Y12 inhibition response. The P2Y12 Test should be interpreted in conjunction with other clinical and lab data. Performed By: #### C ZACHARY, CMP #### [facility] ([id number]) [address], [address] [place] [address] MR BRAIN WO CONTon MR BRAIN WO [...] Metz MD on 04/12/2024 11:08 PM Normal [facility] CBC AND AUTO DIFFon 04-11-20 24 ABSOLUTE BASOPHIL 0.0 X10E9/L Normal 0.0-0.2 [facility] Comment on above: Performed By: #### C ZACHARY, CMP, 39633-4 #### [facility] ([id number]) [address], [address] [place] [address] ABSOLUTE NEUTROPHIL 5.2 X10E9/L Normal 1.5-6.6 [facility] Comment on above: Performed By: #### C ZACHARY, CMP, 68259-7 #### [facility] ([id number]) [address], [facility] [address] [place] [address] Basophils/100 WBC (Bld) 0.6 % Normal P [facility] Comment on above: Performed By: #### C BCA, CMP, 62779-4 #### [facility] ([id number]) [address], [facility] [address] [place] [address] Eosinophils (Bld) [#/Vol] 0.0 10*3/uL Normal 0.0-0.4 [facility] Comment on above: Performed By: #### C BCA, CMP, 67463-4 #### [facility] ([id number]) [address], [address] [place] [address] Eosinophils/100 WBC (Bld) 0.3 % Normal [facility] Comment on above: Performed By: #### Thais SHARMA CMP, 16976-7 #### [facility] ([id number]) [address], [address] [place] [address] Erythrocyte distribution width (RBC) [Ratio] 14.8 % Normal 11.5-15.0 [facility] Comment on above: Performed By: #### Thais SHARMA CMP, 78076-8 #### [facility] ([id number]) [address], [facility] [address] [place] [address] Hematocrit (Bld) [Volume fraction] 22.2 % Low 39-49 [facility] Comment on above: Performed By: #### Thais SHARMA CMP, 11589-7 #### [facility] ([id number]) [address], [address] [place] [address] Hemoglobin (Bld) [Mass/Vol] 7.8 g/dL Low 13.0-17.0 [facility] Comment on above: Performed By: #### Thais SHARMA CMP, 16078-4 #### [facility] ([id number]) [address], [address] [place] [address] Lymphocytes (Bld) [#/Vol] 1.2 10*3/uL Normal 1.0-3.5 [facility] Comment on above: Performed By: #### Thais SHARMA CMP, 57946-4 #### [facility] ([id number]) [address], [address] [place] [address] Lymphocytes/100 WBC (Bld) 17.7 % Normal [facility] Comment on above: Performed By: #### Thais SHARMA CMP, 41454-2 #### [facility] ([id number]) [address], [address] [place] [address] MCH (RBC) [Entitic mass] 31.6 pg Normal 27-34 [facility] Comment on above: Performed By: #### C BCA, CMP, 34942-7 #### [facility] ([id number]) [address], [address] [place] [address] MCHC (RBC) [Mass/Vol] 35.3 g/dL Normal 32-36 [facility] Comment on above: Performed By: #### C BCA, CMP, 11437-4 #### [facility] ([id number]) [address], [address] [place] [address] MCV (RBC) [Entitic vol] 90 fL Normal 80-[address] [facility] Comment on above: Performed By: #### C BCA, CMP, 17012-3 #### [facility] ([id number]) [address], [address] [place] [address] Monocytes (Bld) [#/Vol] 0.4 10*3/uL Normal 0-0.9 [facility] Comment on above: Performed By: #### C BCA, CMP, 63173-2 #### [facility] ([id number]) [address], [address] [place] [address] Monocytes/100 WBC (Bld) 5.2 % Normal P [facility] Comment on above: Performed By: #### C BCA, CMP, 36507-0 #### [facility] ([id number]) [address], [address] [place] [address] Neutrophils/100 WBC (Bld) 76.2 % Normal [facility] Comment on above: Performed By: #### C BCA, CMP, 63832-2 #### [facility] ([id number]) [address], [address] [place] [address] Platelet mean volume (Bld) [Entitic vol] 7.6 fL Normal 7-12 [facility] Comment on above: Performed By: #### C BCA, CMP, 48059-0 #### [facility] ([id number]) [address], [address] [place] [address] Platelets (Bld) [#/Vol] 280 10*3/uL Normal 150-450 [facility] Comment on above: Performed By: #### C BCA, CMP, 74656-4 #### [facility] ([id number]) [address], [address] [place] [address] RBC COUNT 2.48 X10E12/L Low 4.10-5.70 [facility] Comment on above: Performed By: #### C BCA, CMP, 20407-6 #### [facility] ([id number]) [address], [address] [place] [address] WBC (Bld) [#/Vol] 6.8 10*3/uL Normal 4.0-11.0 [facility] Comment on above: Performed By: #### C BCA, CMP, 67998-1 #### [facility] ([id number]) [address], [address] [place] [address] COMPREHENSIVE METABOLIC PANE [place] 04-11-2024 Albumin [Mass/Vol] 3.7 g/dL Normal 3.2-5.3 [facility] Comment on above: Performed By: #### C BCA, CMP, 41431-1 #### [facility] ([id number]) [address], [address] [place] [address] ALP [Catalytic activity/Vol] 52 U/L Normal 39-130 [facility] Comment on above: Performed By: #### C BCA, CMP, 38527-6 #### [facility] ([id number]) [address], [address] [place] [address] ALT [Catalytic activity/Vol] 9 U/L Normal 0-40 [facility] Comment on above: Performed By: #### C BCA, CMP, 59636-4 #### [facility] ([id number]) [address], [address] [place] [address] Anion gap [Moles/Vol] 8 mmol/L Normal 5-15 [facility] Comment on above: Performed By: #### C BCA, CMP, 68633-2 #### [facility] ([id number]) [address], [address] [place] [address] AST [Catalytic activity/Vol] 17 U/L Normal 0-41 [facility] Comment on above: Performed By: #### C BCA, CMP, 85148-7 #### [facility] ([id number]) [address], [address] [place] [address] Bilirubin [Mass/Vol] 0.5 mg/dL Normal 0.3-1.2 [facility] Comment on above: Performed By: #### C BCA, CMP, 99508-6 #### [facility] ([id number]) [address], [address] [place] [address] Calcium [Mass/Vol] 8.5 mg/dL Normal 8.5-10.5 [facility] Comment on above: Performed By: #### C BCA, CMP, 57543-4 #### [facility] ([id number]) [address], [address] [place] [address] Chloride [Moles/Vol] 110 mmol/L High 98-109 [facility] Comment on above: Performed By: #### C BCA, CMP, 45428-6 #### [facility] ([id number]) [address], [address] [place] [address] CO2 [Moles/Vol] 25 mmol/L Normal 22-32 [facility] Comment on above: Performed By: #### C BCA, CMP, 17195-6 #### [facility] ([id number]) [address], [address] [place] [address] Creatinine [Mass/Vol] 0.72 mg/dL Normal 0.60-1.30 [facility] Comment on above: Result Comment: METH OD TRACEABLE TO IDMS STANDARD Performed By: #### C ZACHARY CMP, 17007-3 #### [facility] ([id number]) [address] [address] [place] [address] eGFR (CKD-EPI) NON-RACE DEPENDENT >90 Normal >59 [facility] Comment on above: Result Comment: Reported eGFR is based on the CKD-EPI 2020 equation that does not use a race coefficient. Performed By: #### C ZACHARY, CMP, 38658-0 #### [facility] ([id number]) [address] [address] [place] [address] Glucose [Mass/Vol] 175 mg/dL High 65-99 [facility] Comment on above: Performed By: #### C BCA, CMP, 98617-4 #### [facility] ([id number]) [address] [address] [place] [address] Potassium [Moles/Vol] 4.2 mmol/L Normal 3.5-5.0 [facility] Comment on above: Result Comment: SPEC IMEN HEMOLYZED, RESULTS INCREASED MODERATELY HEMOLYZED Performed By: #### C BCA, CMP, 92431-5 #### [facility] ([id number]) [address] [address] [place] [address] Protein [Mass/Vol] 5.6 g/dL Low 6.0-8.0 [facility] Comment on above: Performed By: #### C BCA, CMP, 30680-5 #### [facility] ([id number]) [address] [address] [place] [address] Sodium [Moles/Vol] 143 mmol/L Normal 134-146 [facility] Comment on above: Performed By: #### C BCA, CMP, 45064-0 #### [facility] ([id number]) [address] [address] [place] [address] Urea nitrogen [Mass/Vol] 41 mg/dL High 5-27 [facility] Comment on above: Performed By: #### Thais SHARMA, NAHOMY, 28836-6 #### [facility] ([id number]) [address], [address] [place] [address] Glucose Glucometer (BldC) [M ass/Vol]on 04-11-2024 Glucose [Mass/Vol] 254 mg/dL High 65-99 [facility] Glucose [Mass/Vol] 282 mg/dL High 65-99 [facility] Glucose [Mass/Vol] 213 mg/dL High 65-99 [facility] Glucose [Mass/Vol] 236 mg/dL High 65-99 [facility] Glucose [Mass/Vol] 192 mg/dL High 65-99 [facility] Glucose [Mass/Vol] 187 mg/dL High 65-99 [facility] aPTT Coag (PPP) [Time]on aPTT Coag (Bld) [Time] 29 s Normal 26-37 Pr [facility] Comment on above: Performed By: #### C ZACHARY, NAHOMY, 05914-7 #### [facility] ([id number]) [address], [address] [place] [address] CBC AND AUTO DIFFon 04-10-20 24 ABSOLUTE BASOPHIL 0.0 X10E9/L Normal 0.0-0.2 [facility] Comment on above: Performed By: #### C ZACHARY, CMP #### [facility] ([id number]) [address] [place] [address] ABSOLUTE NEUTROPHIL 6.1 X10E9/L Normal 1.5-6.6 [facility] Comment on above: Performed By: #### Thais SHARMA, CMP #### [facility] ([id number]) [address], [address] [place] [address] Basophils/100 WBC (Bld) 0.3 % Normal P [facility] Comment on above: Performed By: #### C BCA, CMP #### [facility] ([id number]) [address] [address] [place] [address] Eosinophils (Bld) [#/Vol] 0.0 10*3/uL Normal 0.0-0.4 [facility] Comment on above: Performed By: #### C BCA, CMP #### [facility] ([id number]) [address], [facility] [address] [place] [address] Eosinophils/100 WBC (Bld) 0.1 % Normal [facility] Comment on above: Performed By: #### C BCA, CMP #### [facility] ([id number]) [address] [address] [place] [address] Erythrocyte distribution width (RBC) [Ratio] 14.3 % Normal 11.5-15.0 [facility] Comment on above: Performed By: #### C BCA, CMP #### [facility] ([id number]) [address], [facility] [address] [place] [address] Hematocrit (Bld) [Volume fraction] 22.7 % Low 39-49 [facility] Comment on above: Performed By: #### C BCA, CMP #### [facility] ([id number]) [address] [address] [place] [address] Hemoglobin (Bld) [Mass/Vol] 7.9 g/dL Low 13.0-17.0 [facility] Comment on above: Performed By: #### C BCA, CMP #### [facility] ([id number]) [address] [address] [place] [address] Lymphocytes (Bld) [#/Vol] 1.1 10*3/uL Normal 1.0-3.5 [facility] Comment on above: Performed By: #### C BCA, CMP #### [facility] ([id number]) [address] [place] [address] Lymphocytes/100 WBC (Bld) 14.5 % Normal [facility] Comment on above: Performed By: #### C BCA, CMP #### [facility] ([id number]) [address], [address] [place] [address] MCH (RBC) [Entitic mass] 31.2 pg Normal 27-34 [facility] Comment on above: Performed By: #### C BCA, CMP #### [facility] ([id number]) [address] [place] [address] MCHC (RBC) [Mass/Vol] 35.1 g/dL Normal 32-36 [facility] Comment on above: Performed By: #### C BCA, CMP #### [facility] ([id number]) [address], [address] [facility] [address] MCV (RBC) [Entitic vol] 89 fL Normal 80-[address] [facility] Comment on above: Performed By: #### C BCA, CMP #### [facility] ([id number]) [address] [place] [address] Monocytes (Bld) [#/Vol] 0.3 10*3/uL Normal 0-0.9 [facility] Comment on above: Performed By: #### C BCA, CMP #### [facility] ([id number]) [address] [place] [address] Monocytes/100 WBC (Bld) 4.3 % Normal P [facility] Comment on above: Performed By: #### C BCA, CMP #### [facility] ([id number]) [address] [place] [address] Neutrophils/100 WBC (Bld) 80.8 % Normal [facility] Comment on above: Performed By: #### C BCA, CMP #### [facility] ([id number]) [address], [address] [place] [address] Platelet mean volume (Bld) [Entitic vol] 7.2 fL Normal 7-12 [facility] Comment on above: Performed By: #### C BCA, CMP #### [facility] ([id number]) [address], [address] [place] [address] Platelets (Bld) [#/Vol] 285 10*3/uL Normal 150-450 [facility] Comment on above: Performed By: #### C ZACHARY, CMP #### [facility] ([id number]) [address], [address] [place] [address] RBC COUNT 2.55 X10E12/L Low 4.10-5.70 [facility] Comment on above: Performed By: #### C ZACHARY, CMP #### [facility] ([id number]) [address], [address] [place] [address] WBC (Bld) [#/Vol] 7.6 10*3/uL Normal 4.0-11.0 [facility] Comment on above: Performed By: #### C ZACHARY, CMP #### [facility] ([id number]) [address], [address] [place] [address] ABSOLUTE BASOPHIL 0.0 X10E9/L Normal 0.0-0.2 [facility] Comment on above: Performed By: #### P INR, 14675-2, 03775-4, CBCA, 94360-6, CMP, 4548-4, 6473-4 #### [facility] ([id number]) [address] [place] [address], [place] [address] #### HA1C #### [facility] ([id number]) [address], [address] [place] [address] ABSOLUTE NEUTROPHIL 6.7 X10E9/L High 1.5-6.6 [facility] Comment on above: Performed By: #### P INR, 26305-2, 37808-6, CBCA, 79384-0, CMP, 4548-4, 6873-4 #### [facility] ([id number]) [address] [place] [address] #### HA1C #### [facility] ([id number]) [address], [address] [place] [address] Basophils/100 WBC (Bld) 0.3 % Normal [facility] Comment on above: Performed By: #### P INR, 27135-2, 47956-1, CBCA, 30725-6, CMP, 4548-4, 6873-4 #### [facility] ([id number]) [address] [place] [address] #### HA1C #### [facility] ([id number]) [address], [address] [place] [address] Eosinophils (Bld) [#/Vol] 0.0 10*3/uL Normal 0.0-0.4 [facility] Comment on above: Performed By: #### P INR, 81724-8, 23470-8, CBCA, 96889-9, CMP, 4548-4, 6873-4 #### [facility] ([id number]) [address] [place] [address] #### HA1C #### [facility] ([id number]) [address], [address] [place] [address] Eosinophils/100 WBC (Bld) 0.1 % Normal [facility] Comment on above: Performed By: #### P INR, 88327-9, 39943-7, CBCA, 14671-6, CMP, 4548-4, 6873-4 #### [facility] ([id number]) [address] [place] [address] [place] [address] #### HA1C #### [facility] ([id number]) [address], [facility] [address] [place] [address] Erythrocyte distribution width (RBC) [Ratio] 14.3 % Normal 11.5-15.0 [facility] Comment on above: Performed By: #### P INR, 37850-5, 86582-9, CBCA, 11438-9, CMP, 4548-4, 6873-4 #### [facility] ([id number]) [address] [place] [id number] #### HA1C #### [facility] ([id number]) [address], [facility] [address] [place] [address] Hematocrit (Bld) [Volume fraction] 25.1 % Low 39-49 [facility] Comment on above: Performed By: #### P INR, 80184-8, 41347-3, CBCA, 79341-8, CMP, 4548-4, 6873-4 #### [facility] ([id number]) [address] [place] [id number] #### HA1C #### [facility] ([id number]) [address], [address] [place] [address] Hemoglobin (Bld) [Mass/Vol] 8.7 g/dL Low 13.0-17.0 [facility] Comment on above: Performed By: #### P INR, 34535-3, 77771-1, CBCA, 06161-2, CMP, 4548-4, 6873-4 #### [facility] ([id number]) [address] [place] [id number] #### HA1C #### [facility] ([id number]) [address], [address] [place] [address] Lymphocytes (Bld) [#/Vol] 1.3 10*3/uL Normal 1.0-3.5 [facility] Comment on above: Performed By: #### P INR, 26444-5, 02857-2, CBCA, 48093-8, CMP, 4548-4, 6873-4 #### [facility] ([id number]) [address] [place] [id number] #### HA1C #### [facility] ([id number]) [address], [address] [place] [address] Lymphocytes/100 WBC (Bld) 15.7 % Normal [facility] Comment on above: Performed By: #### P INR, 87258-2, 69448-5, CBCA, 80430-9, CMP, 4548-4, 6873-4 #### [facility] ([id number]) [address] [place] [address] #### HA1C #### [facility] ([id number]) [address] [facility] [place] [address] MCH (RBC) [Entitic mass] 30.6 pg Normal 27-34 [facility] Comment on above: Performed By: #### P INR, 71696-3, 41544-6, CBCA, 72161-8, CMP, 4548-4, 6873-4 #### [facility] ([id number]) [address] [place] [id number] #### HA1C #### [facility] ([id number]) [address], [address] [place] [address] MCHC (RBC) [Mass/Vol] 34.8 g/dL Normal 32-36 [facility] Comment on above: Performed By: #### P INR, 22893-7, 95028-0, CBCA, 48924-4, CMP, 4548-4, 6873-4 #### [facility] [facility] ([id number]) [address] [place] [address] 00163 #### HA1C #### [facility] ([id number]) [address], [address] [place] [address] MCV (RBC) [Entitic vol] 88 fL Normal 80-100 [facility] Comment on above: Performed By: #### P INR, 26856-3, 15280-8, CBCA, 42629-2, CMP, 4548-4, 6873-4 #### [facility] ([id number]) [address] [place] [address] 41353 #### HA1C #### [facility] ([id number]) [address] [facility], [address] [place] [address] Monocytes (Bld) [#/Vol] 0.4 10*3/uL Normal 0-0.9 [facility] Comment on above: Performed By: #### P INR, 84398-9, 39960-6, CBCA, 30894-2, CMP, 4548-4, 6873-4 #### [facility] ([id number]) [address] [place] [address] 07598 #### HA1C #### [facility] ([id number]) [address] [facility], [address] [place] [address] Monocytes/100 WBC (Bld) 5.0 % Normal P [facility] Comment on above: Performed By: #### P INR, 83611-1, 38348-4, CBCA, 35519-1, CMP, 4548-4, 6873-4 #### [facility] ([id number]) [address] [place] [address] 02828 #### HA1C #### [facility] ([id number]) [address], [address] [place] [address] Neutrophils/100 WBC (Bld) 78.9 % Normal [facility] Comment on above: Performed By: #### P INR, 97767-8, 14077-0, CBCA, 53972-0, CMP, 4548-4, 6873-4 #### [facility] ([id number]) [address] [place] [address] 28805 #### HA1C #### [facility] ([id number]) [address], [address] [place] [address] Platelet mean volume (Bld) [Entitic vol] 7.4 fL Normal 7-12 [facility] Comment on above: Performed By: #### P INR, 03643-5, 54349-8, CBCA, 74622-6, CMP, 4548-4, 6873-4 #### [facility] ([id number]) [address] [place] [address] 90379 #### HA1C #### [facility] ([id number]) [address], [address] [place] [address] Platelets (Bld) [#/Vol] 285 10*3/uL Normal 150-450 [facility] Comment on above: Performed By: #### P INR, 00425-8, 73616-7, CBCA, 95894-7, CMP, 4548-4, 6873-4 #### [facility] ([id number]) [address] [place] [address] 29609 #### HA1C #### [facility] ([id number]) [address], [address] [place] [address] RBC COUNT 2.86 X10E12/L Low 4.10-5.70 [facility] Comment on above: Performed By: #### P INR, 46580-0, 26759-7, CBCA, 78373-5, CMP, 4548-4, 6873-4 #### [facility] ([id number]) [address] [place] [address] 83628 #### HA1C #### [facility] ([id number]) [address], [address] [place] [address] WBC (Bld) [#/Vol] 8.5 10*3/uL Normal 4.0-11.0 [facility] Comment on above: Performed By: #### P INR, 88303-6, 69721-8, CBCA, 27923-1, CMP, 4548-4, 6873-4 #### [facility] ([id number]) [address] [place] [address], [place] [address] #### HA1C #### [facility] ([id number]) [address], [address] [place] [address] COMPREHENSIVE METABOLIC PANE [place] 04-10-2024 Albumin [Mass/Vol] 3.9 g/dL Normal 3.2-5.3 [facility] Comment on above: Performed By: #### C BCA, CMP #### [facility] ([id number]) [address], [address] [place] [address] ALP [Catalytic activity/Vol] 54 U/L Normal 39-130 [facility] Comment on above: Performed By: #### C BCA, CMP #### [facility] ([id number]) [address], [address] [place] [address] ALT [Catalytic activity/Vol] 8 U/L Normal 0-40 [facility] Comment on above: Performed By: #### C BCA, CMP #### [facility] ([id number]) [address], [address] [place] [address] Anion gap [Moles/Vol] 9 mmol/L Normal 5-15 [facility] Comment on above: Performed By: #### C BCA, CMP #### [facility] ([id number]) [address], [address] [place] [address] AST [Catalytic activity/Vol] 10 U/L Normal 0-41 [facility] Comment on above: Performed By: #### C BCA, CMP #### [facility] ([id number]) [address] [address] [place] [address] Bilirubin [Mass/Vol] 0.6 mg/dL Normal 0.3-1.2 [facility] Comment on above: Performed By: #### C BCA, CMP #### [facility] ([id number]) [address], [facility] [address] [place] [address] Calcium [Mass/Vol] 8.8 mg/dL Normal 8.5-10.5 [facility] Comment on above: Performed By: #### C BCA, CMP #### [facility] ([id number]) [address], [facility] [address] [place] [address] Chloride [Moles/Vol] 109 mmol/L Normal 98-109 [facility] Comment on above: Performed By: #### C BCA, CMP #### [facility] ([id number]) [address], [facility] [address] [place] [address] CO2 [Moles/Vol] 23 mmol/L Normal 22-32 [facility] Comment on above: Performed By: #### C BCA, CMP #### [facility] ([id number]) [address] [address] [place] [address] Creatinine [Mass/Vol] 0.83 mg/dL Normal 0.60-1.30 [facility] Comment on above: Result Comment: METH OD TRACEABLE TO IDMS STANDARD Performed By: #### C BCA, CMP #### [facility] ([id number]) [address] [address] [place] [address] eGFR (CKD-EPI) NON-RACE DEPENDENT >90 Normal >59 [facility] Comment on above: Result Comment: Reported eGFR is based on the CKD-EPI 2020 equation that does not use a race coefficient. Performed By: #### C BCA, CMP #### [facility] ([id number]) [address], [address] [place] [address] Glucose [Mass/Vol] 193 mg/dL High 65-99 [facility] Comment on above: Performed By: #### C BCA, CMP #### [facility] ([id number]) [address], [address] [place] [address] Potassium [Moles/Vol] 4.1 mmol/L Normal 3.5-5.0 [facility] Comment on above: Performed By: #### C BCA, CMP #### [facility] ([id number]) [address], [address] [place] [address] Protein [Mass/Vol] 5.7 g/dL Low 6.0-8.0 [facility] Comment on above: Performed By: #### C BCA, CMP #### [facility] ([id number]) [address] [place] [address] Sodium [Moles/Vol] 141 mmol/L Normal 134-146 [facility] Comment on above: Performed By: #### C BCA, CMP #### [facility] ([id number]) [address], [address] [place] [address] Urea nitrogen [Mass/Vol] 54 mg/dL High 5-27 [facility] Comment on above: Performed By: #### C BCA, CMP #### [facility] ([id number]) [address], [address] [place] [address] Albumin [Mass/Vol] 3.8 g/dL Normal 3.2-5.3 [facility] Comment on above: Performed By: #### P INR, 28533-4, 58052-5, CBCA, 13805-8, CMP, 4548-4, 6873-4 #### [facility] ([id number]) [address] [place] [address], [place] [address] #### HA1C #### [facility] ([id number]) [address] [facility], [address] [place] [address] ALP [Catalytic activity/Vol] 55 U/L Normal 39-130 [facility] Comment on above: Performed By: #### P INR, 47041-2, 03438-2, CBCA, 09758-6, CMP, 4548-4, 6873-4 #### [facility] ([id number]) [address] [place] [address] 32884 #### HA1C #### [facility] ([id number]) [address] [facility], [address] [place] [address] ALT [Catalytic activity/Vol] 13 U/L Normal 0-40 [facility] Comment on above: Performed By: #### P INR, 18688-5, 63429-5, CBCA, 47573-5, CMP, 4548-4, 6873-4 #### [facility] ([id number]) [address] [place] [address] 53241 #### HA1C #### [facility] ([id number]) [address] [facility], [address] [place] [address] Anion gap [Moles/Vol] 11 mmol/L Normal 5-15 [facility] Comment on above: Performed By: #### P INR, 19544-5, 24486-7, CBCA, 57441-2, CMP, 4548-4, 6873-4 #### [facility] ([id number]) [address] [place] [address] 07584 #### HA1C #### [facility] ([id number]) [address] [facility], [address] [place] [address] AST [Catalytic activity/Vol] 14 U/L Normal 0-41 [facility] Comment on above: Performed By: #### P INR, 21403-7, 22044-0, CBCA, 14893-2, CMP, 4548-4, 6873-4 #### [facility] ([id number]) [address] [place] [address] 79319 #### HA1C #### [facility] ([id number]) [address] [facility], [address] [place] [address] Bilirubin [Mass/Vol] 0.4 mg/dL Normal 0.3-1.2 [facility] Comment on above: Performed By: #### P INR, 02007-1, 99392-8, CBCA, 65533-8, CMP, 4548-4, 6873-4 #### [facility] ([id number]) [address] [place] [address] 89930 #### HA1C #### [facility] ([id number]) [address] [facility], [address] [place] [address] Calcium [Mass/Vol] 8.6 mg/dL Normal 8.5-10.5 [facility] Comment on above: Performed By: #### P INR, 17572-5, 05268-5, CBCA, 88766-4, CMP, 4548-4, 6873-4 #### [facility] ([id number]) [address] [place] [address] 11926 #### HA1C #### [facility] ([id number]) [address] [facility], [address] [place] [address] Chloride [Moles/Vol] 106 mmol/L Normal 98-109 [facility] Comment on above: Performed By: #### P INR, 01602-2, 69177-1, CBCA, 33719-1, CMP, 4548-4, 6873-4 #### [facility] ([id number]) [address] [place] [address] 05741 #### HA1C #### [facility] ([id number]) [address] [facility], [address] [place] [address] CO2 [Moles/Vol] 20 mmol/L Low 22-32 [facility] Comment on above: Performed By: #### P INR, 79794-1, 52429-7, CBCA, 02702-6, CMP, 4548-4, 6873-4 #### [facility] ([id number]) [address] [place] [address] 36317 #### HA1C #### [facility] ([id number]) [address] [facility], [facility] [address] [place] [address] Creatinine [Mass/Vol] 1.02 mg/dL Normal 0.70-1.20 [facility] Comment on above: Result Comment: METH OD TRACEABLE TO IDMS STANDARD Performed By: #### P INR, 74528-9, 42597-4, CBCA, 93350-1, CMP, 4548-4, 6873-4 #### [facility] ([id number]) [address] [place] [address] 96752 #### HA1C #### [facility] ([id number]) [address] [place] [address] GFR/1.73 sq M.predicted among non-blacks MDRD (S/P/Bld) [Vol rate/Area] 79 mL/min/{1.73_m2} Normal >59 [facility] Comment on above: Result Comment: Reported eGFR is based on the CKD-EPI 2020 equation that does not use a race coefficient. Performed By: #### P INR, 54878-7, 69354-4, CBCA, 81130-7, CMP, 4548-4, 6873-4 #### [facility] ([id number]) [address] [place] [address] 84658 #### HA1C #### [facility] ([id number]) [address] [facility] [address] [place] [address] Glucose [Mass/Vol] 195 mg/dL High 65-99 [facility] Comment on above: Performed By: #### P INR, 96459-2, 63965-7, CBCA, 09167-4, CMP, 4548-4, 6873-4 #### [facility] ([id number]) [address] [place] [address] 87520 #### HA1C #### [facility] ([id number]) [address], [address] [place] [address] Potassium [Moles/Vol] 4.1 mmol/L Normal 3.5-5.0 [facility] Comment on above: Performed By: #### P INR, 35003-9, 88655-9, CBCA, 43800-5, CMP, 4548-4, 6873-4 #### [facility] ([id number]) [address] [place] [address] 89071 #### HA1C #### [facility] ([id number]) [address] [facility], [address] [place] [address] Protein [Mass/Vol] 6.1 g/dL Normal 6.0-8.0 [facility] Comment on above: Performed By: #### P INR, 68738-8, 99649-2, CBCA, 91022-3, CMP, 4548-4, 6873-4 #### [facility] ([id number]) [address] [place] [address] 21350 #### HA1C #### [facility] ([id number]) [address] [facility], [address] [place] [address] Sodium [Moles/Vol] 137 mmol/L Normal 134-146 [facility] Comment on above: Performed By: #### P INR, 75562-9, 43841-7, CBCA, 86006-0, CMP, 4548-4, 6873-4 #### [facility] ([id number]) [address] [facility], [place] [address] #### HA1C #### [facility] ([id number]) [address], [address] [place] [address] Urea nitrogen [Mass/Vol] 86 mg/dL High 5-27 [facility] Comment on above: Performed By: #### P INR, 65172-2, 21491-8, CBCA, 12829-4, CMP, 4548-4, 6873-4 #### [facility] ([id number]) [address] [facility], [place] [address] #### HA1C #### [facility] ([id number]) [address], [address] [place] [address] CT BRAIN WO CONTon CT BRAIN WO [...] Jaramillo MD on 04/10/2024 2:20 PM Normal [facility] CT CTA CAROTIDon 04-10-2024 CT CTA [...] supervision. Automated exposure control utilized. The [place] Symptomatic Carotid Endarterectomy Trial (NASCET) method for [...] Beatty MD on 04/10/2024 3:14 PM Normal [facility] CT CTA HEADon 04-10-2024 CT CTA [...] Beatty MD on 04/10/2024 2:51 PM Normal [facility] Glucose Glucometer (BldC) [M ass/Vol]on 04-10-2024 Glucose [Mass/Vol] 188 mg/dL High 65-99 [facility] Glucose [Mass/Vol] 233 mg/dL High 65-99 [facility] Glucose [Mass/Vol] 232 mg/dL High 65-99 [facility] Glucose [Mass/Vol] 232 mg/dL High 65-99 [facility] Glucose [Mass/Vol] 205 mg/dL High 65-99 [facility] MAGNESIUMon 04-10-2024 Magnesium [Mass/Vol] 2.3 mg/dL Normal 1.8-2.6 [facility] Comment on above: Performed By: #### P INR, 36814-5, 83002-5, CBCA, 60917-2, CMP, 4548-4, 6873-4 #### [facility] ([id number]) [address] [place] [address] 64032 #### HA1C #### [facility] ([id number]) [address] [place] [address], [address] [place] [address] PHOSPHORUSon 04-10-2024 Phosphate [Mass/Vol] 4.2 mg/dL Normal 2.4-4.9 [facility] Comment on above: Performed By: #### P INR, 47681-8, 79143-9, CBCA, 50055-3, CMP, 4548-4, 6873-4 #### [facility] ([id number]) [address] [place] [address] 13591 #### HA1C #### [facility] ([id number]) [address] [place] [address], [address] [place] [address] URINALYSISon 04-10-2024 Bilirubin Ql (U) Negative Normal NEG [facility] Comment on above: Performed By: #### U A #### [facility] ([id number]) [address] [place] [address] BLOOD/HGB Negative Normal NEG [facility] Comment on above: Performed By: #### U A #### [facility] ([id number]) [address] [place] [address] Color (U) YELLOW Normal YELLOW [facility] Comment on above: Performed By: #### U A #### [facility] ([id number]) [address] [place] [address] Glucose Ql (U) Negative Normal NEG [facility] Comment on above: Performed By: #### U A #### [facility] ([id number]) [address] [place] [address] Ketones Ql (U) Negative Normal NEG [facility] Comment on above: Performed By: #### U A #### [facility] ([id number]) [address] [place] [address] Leukocyte esterase Test strip Ql (U) Negative Normal NEG [facility] Comment on above: Performed By: #### U A #### [facility] ([id number]) [address] [place] [address] Nitrite Ql (U) Negative Normal NEG [facility] Comment on above: Performed By: #### U A #### [facility] ([id number]) [address] [place] [address] pH (U) 5.5 [pH] Normal 5.0-8.5 [facility] Comment on above: Performed By: #### U A #### [facility] ([id number]) [address] [place] [address] Protein Ql (U) Negative Normal NEG [facility] Comment on above: Performed By: #### U A #### [facility] ([id number]) [address], [address] [place] [address] Specific gravity (U) [Rel density] 1.039 High 1.003-1.035 [facility] Comment on above: Performed By: #### U A #### [facility] ([id number]) [address], [address] [place] [address] TURBIDITY CLEAR Normal CLEAR [facility] Comment on above: Performed By: #### U A #### [facility] ([id number]) [address], [address] [place] [address] Urinalysis dipstick W Reflex Microscopic panel (U) URINE RECEIVED WITHOUT PRESERVATIVE-DELAYS IN TRANSPORT MAY AFFECT RESULTS.INTERPRET WITH CAUTION AND CLINICAL CORRELATION IS RECOMMENDED. Normal [facility] Comment on above: Performed By: #### U A #### [facility] ([id number]) [address], [address] [place] [address] Urobilinogen (U) [Mass/Vol] mg/dL Normal <1.1 [facility] Comment on above: Performed By: #### U A #### [facility] ([id number]) [address], [facility] [address] [place] [address] BASIC METABOLIC PANLon 04-09 Anion gap [Moles/Vol] 12 mmol/L Normal 5-15 [facility] Comment on above: Performed By: #### P INR, 02225-9, 64853-4, CBCA, 39196-7, CMP, 4548-4, 6873-4 #### [facility] ([id number]) [address] [place] [address], [place] [address] #### HA1C #### [facility] ([id number]) [address], [address] [place] [address] Calcium [Mass/Vol] 8.4 mg/dL Low 8.5-10.5 [facility] Comment on above: Performed By: #### P INR, 43558-6, 04630-9, CBCA, 07234-5, CMP, 4548-4, 6873-4 #### [facility] ([id number]) [address] [place] [address] #### HA1C #### [facility] ([id number]) [address], [address] [place] [address] Chloride [Moles/Vol] 102 mmol/L Normal 98-109 [facility] Comment on above: Performed By: #### P INR, 08770-8, 26089-5, CBCA, 61461-7, CMP, 4548-4, 6873-4 #### [facility] ([id number]) [address] [place] [address] 88042 #### HA1C #### [facility] ([id number]) [address], [address] [place] [address] CO2 [Moles/Vol] 17 mmol/L Low 22-32 [facility] Comment on above: Performed By: #### P INR, 77859-0, 92467-0, CBCA, 53037-1, CMP, 4548-4, 6873-4 #### [facility] ([id number]) [address] [place] [address] 13160 #### HA1C #### [facility] ([id number]) [address], [address] [place] [address] Creatinine [Mass/Vol] 1.49 mg/dL High 0.70-1.20 [facility] Comment on above: Result Comment: METH OD TRACEABLE TO IDMS STANDARD Performed By: #### P INR, 86111-5, 82408-2, CBCA, 69090-2, CMP, 4548-4, 6873-4 #### [facility] ([id number]) [address] [place] [address], [place] [address] #### HA1C #### [facility] ([id number]) [address] [facility], [facility] [address] [place] [address] GFR/1.73 sq M.predicted among non-blacks MDRD (S/P/Bld) [Vol rate/Area] 50 mL/min/{1.73_m2} Low >59 [facility] Comment on above: Result Comment: Reported eGFR is based on the CKD-EPI 2020 equation that does not use a race coefficient. Performed By: #### P INR, 10965-2, 02352-7, CBCA, 96346-0, CMP, 4548-4, 6873-4 #### [facility] ([id number]) [address] [place] [address] #### HA1C #### [facility] ([id number]) [address] [facility], [address] [place] [address] Glucose [Mass/Vol] 328 mg/dL High 65-99 [facility] Comment on above: Performed By: #### P INR, 12724-2, 09686-0, CBCA, 28999-8, CMP, 4548-4, 6873-4 #### [facility] ([id number]) [address] [place] [phone] #### HA1C #### [facility] ([id number]) [address] [facility], [address] [place] [address] Potassium [Moles/Vol] 4.7 mmol/L Normal 3.5-5.0 [facility] Comment on above: Performed By: #### P INR, 23324-1, 40852-4, CBCA, 78183-2, CMP, 4548-4, 6873-4 #### [facility] ([id number]) [address] [place] [phone] #### HA1C #### [facility] ([id number]) [address], [address] [place] [address] Sodium [Moles/Vol] 131 mmol/L Low 134-146 [facility] Comment on above: Performed By: #### P INR, 15216-5, 60573-1, CBCA, 54189-7, CMP, 4548-4, 6873-4 #### [facility] ([id number]) [address] [place] [address] #### HA1C #### [facility] ([id number]) [address] [facility], [address] [place] [address] Urea nitrogen [Mass/Vol] 112 mg/dL High 5-27 [facility] Comment on above: Performed By: #### P INR, 67874-1, 83404-2, CBCA, 66482-3, CMP, 4548-4, 6873-4 #### [facility] ([id number]) [address] [place] [phone] #### HA1C #### [facility] ([id number]) [address] [facility] [place] [address] CBC AND AUTO DIFFon 04-09- 24 ABSOLUTE BASOPHIL 0.0 X10E9/L Normal 0.0-0.2 [facility] Comment on above: Performed By: #### P INR, 23785-6, 34519-9, CBCA, 21472-0, CMP, 4548-4, 6873-4 #### [facility] ([id number]) [address] [place] [id number] #### HA1C #### [facility] ([id number]) [address] [facility], [address] [place] [address] ABSOLUTE NEUTROPHIL 8.5 X10E9/L High 1.5-6.6 [facility] Comment on above: Performed By: #### P INR, 27789-9, 60606-5, CBCA, 47128-6, CMP, 4548-4, 6873-4 #### [facility] ([id number]) [address] [place] [id number] #### HA1C #### [facility] ([id number]) [address], [address] [place] [address] Basophils/100 WBC (Bld) 0.4 % Normal [facility] Comment on above: Performed By: #### P INR, 79141-1, 45553-4, CBCA, 31132-1, CMP, 4548-4, 6873-4 #### [facility] ([id number]) [address] [place] [id number] #### HA1C #### [facility] [facility] ([id number]) [address] [facility], [address] [place] [address] Eosinophils (Bld) [#/Vol] 0.0 10*3/uL Normal 0.0-0.4 [facility] Comment on above: Performed By: #### P INR, 78907-3, 82405-7, CBCA, 82615-0, CMP, 4548-4, 6873-4 #### [facility] ([id number]) [address] [place] [address] 44825 #### HA1C #### [facility] ([id number]) [address] [facility], [address] [place] [address] Eosinophils/100 WBC (Bld) 0.1 % Normal [facility] Comment on above: Performed By: #### P INR, 52936-1, 60598-5, CBCA, 52945-1, CMP, 4548-4, 6873-4 #### [facility] ([id number]) [address] [place] [address] 63532 #### HA1C #### [facility] ([id number]) [address] [address] [place] [address] Erythrocyte distribution width (RBC) [Ratio] 13.9 % Normal 11.5-15.0 [facility] Comment on above: Performed By: #### P INR, 06992-3, 12267-6, CBCA, 29602-9, CMP, 4548-4, 6873-4 #### [facility] ([id number]) [address] [place] [address] 30036 #### HA1C #### [facility] ([id number]) [address] [facility] [address] [place] [address] Hematocrit (Bld) [Volume fraction] 28.3 % Low 39-49 [facility] Comment on above: Performed By: #### P INR, 26000-0, 64068-8, CBCA, 67914-2, CMP, 4548-4, 6873-4 #### [facility] ([id number]) [address] [place] [address] 46646 #### HA1C #### [facility] ([id number]) [address] [facility] [address] [place] [address] Hemoglobin (Bld) [Mass/Vol] 9.8 g/dL Low 13.0-17.0 [facility] Comment on above: Performed By: #### P INR, 81018-4, 74309-8, CBCA, 84818-1, CMP, 4548-4, 6873-4 #### [facility] ([id number]) [address] [place] [address] 55490 #### HA1C #### [facility] ([id number]) [address] [address] Lymphocytes (Bld) [#/Vol] 0.9 10*3/uL Low 1.0-3.5 [facility] Comment on above: Performed By: #### P INR, 56291-1, 17358-5, CBCA, 22818-9, CMP, 4548-4, 6873-4 #### [facility] ([id number]) [address] [place] [address] 25174 #### HA1C #### [facility] ([id number]) [address], [address] [place] [address] Lymphocytes/100 WBC (Bld) 9.0 % Normal [facility] Comment on above: Performed By: #### P INR, 53366-3, 64957-9, CBCA, 16444-5, CMP, 4548-4, 6873-4 #### [facility] ([id number]) [address] [place] [address] 01119 #### HA1C #### [facility] ([id number]) [address], [address] [place] [address] MCH (RBC) [Entitic mass] 30.9 pg Normal 27-34 [facility] Comment on above: Performed By: #### P INR, 13282-5, 82111-9, CBCA, 20836-9, CMP, 4548-4, 6873-4 #### [facility] ([id number]) [address] [place] [address] 89943 #### HA1C #### [facility] ([id number]) [address], [address] [place] [address] MCHC (RBC) [Mass/Vol] 34.6 g/dL Normal 32-36 [facility] Comment on above: Performed By: #### P INR, 78623-1, 86319-0, CBCA, 67392-1, CMP, 4548-4, 6873-4 #### [facility] ([id number]) [address] [place] [address] 95408 #### HA1C #### [facility] ([id number]) [address], [address] [place] [address] MCV (RBC) [Entitic vol] 89 fL Normal 80-[address] [facility] Comment on above: Performed By: #### P INR, 70103-9, 17996-4, CBCA, 06398-1, CMP, 4548-4, 6873-4 #### [facility] ([id number]) [address] [place] [address] 83354 #### HA1C #### [facility] ([id number]) [address] [place] [address] Monocytes (Bld) [#/Vol] 0.3 10*3/uL Normal 0-0.9 [facility] Comment on above: Performed By: #### P INR, 86217-7, 53930-7, CBCA, 88911-8, CMP, 4548-4, 6873-4 #### [facility] ([id number]) [address] [place] [address] 54957 #### HA1C #### [facility] ([id number]) [address] [facility], [address] [place] [address] Monocytes/100 WBC (Bld) 3.2 % Normal [facility] Comment on above: Performed By: #### P INR, 17804-9, 63265-5, CBCA, 36981-6, CMP, 4548-4, 6873-4 #### [facility] ([id number]) [address] [place] [address] 52509 #### HA1C #### [facility] ([id number]) [address] [facility], [address] [place] [address] Neutrophils/100 WBC (Bld) 87.3 % Normal [facility] Comment on above: Performed By: #### P INR, 85916-5, 33022-6, CBCA, 83976-3, CMP, 4548-4, 6873-4 #### [facility] ([id number]) [address] [place] [address] 57989 #### HA1C #### [facility] ([id number]) [address], [address] [place] [address] Platelet mean volume (Bld) [Entitic vol] 8.1 fL Normal 7-12 [facility] Comment on above: Performed By: #### P INR, 37374-1, 68146-3, CBCA, 93796-1, CMP, 4548-4, 6873-4 #### [facility] ([id number]) [address] [place] [address] 20613 #### HA1C #### [facility] ([id number]) [address] [facility], [address] [place] [address] Platelets (Bld) [#/Vol] 330 10*3/uL Normal 150-450 [facility] Comment on above: Performed By: #### P INR, 11064-0, 28180-0, CBCA, 10241-1, CMP, 4548-4, 6873-4 #### [facility] ([id number]) [address] [place] [address] 42339 #### HA1C #### [facility] ([id number]) [address], [address] [place] [address] RBC COUNT 3.16 X10E12/L Low 4.10-5.70 [facility] Comment on above: Performed By: #### P INR, 48299-4, 53147-6, CBCA, 23864-4, CMP, 4548-4, 6873-4 #### [facility] ([id number]) [address] [place] [address] 82416 #### HA1C #### [facility] ([id number]) [address] [facility], [address] [place] [address] WBC (Bld) [#/Vol] 9.7 10*3/uL Normal 4.0-11.0 [facility] Comment on above: Performed By: #### P INR, 59707-0, 28871-2, CBCA, 13452-8, CMP, 4548-4, 6873-4 #### [facility] ([id number]) [address] [address] [facility] [place] [address] #### HA1C #### [facility] ([id number]) [address] [facility], [address] [place] [address] CT BRAIN WO CONT STROKE ALER Ton [...] Clay MD on 04/09/2024 8:10 AM Normal [facility] CT CTA CAROTIDon 04-09-2024 CT CTA [...] artery narrowing is assessed using the [place] Symptomatic Carotid Endarterectomy Trial (NASCET) method. Comparison: [...] Kenneth Rothman MD on 04/09/2024 8:34 AM [facility] CT CTA HEADon 04-09-2024 CT CTA HEAD [...] Thomson MD on 04/09/2024 8:39 AM Normal [facility] Glucose Glucometer (BldC) [M ass/Vol]on 04-09-2024 Glucose [Mass/Vol] 190 mg/dL High 65-99 [facility] Glucose [Mass/Vol] 222 mg/dL High 65-99 [facility] Glucose [Mass/Vol] 258 mg/dL High 65-99 [facility] HGB A1C (GLYCO-HGB)on 2023 Glucose [Mass/Vol] 169 mg/dL Normal [facility] Comment on above: Performed By: #### P INR, 55956-0, 86986-6, CBCA, 01513-8, CMP, 4548-4, 6873-4 #### [facility] ([id number]) [address] [place] [address], [place] [address] #### HA1C #### [facility] ([id number]) [address] [place] [address], [address] [place] [address] HbA1c (Bld) [Mass fraction] 7.5 % High 4.4-5.6 [facility] Comment on above: Result Comment: NOTE ADA Guidelines Result HgbA1c Normal : less than 5.7 % Prediabetes : 5.7 % to 6.4 % Diabetes : > 6.4 % Use with caution in patients with abnormal hemoglobin variants as the half-life of red blood cells and in vivo glycation rates are affected. Performed By: #### P INR, 98273-9, 56550-9, CBCA, 04490-4, CMP, 4548-4, 6873-4 #### [facility] ([id number]) [address] [place] [address] 99714 #### HA1C #### [facility] ([id number]) [address] [place] [address], [facility] [address] [place] [address] Lipid 1996 panelon 4 Cholesterol [Mass/Vol] 142 mg/dL Low 150-200 Pr [facility] Comment on above: Performed By: #### P INR, 82042-5, 96640-8, CBCA, 47212-1, CMP, 4548-4, 6873-4 #### [facility] ([id number]) [address] [place] [address] 11119 #### HA1C #### [facility] ([id number]) [address] [place] [address], [address] [address] Cholesterol in HDL [Mass/Vol] 27 mg/dL Low >39 [facility] Comment on above: Result Comment: HDL <40 mg/dL - High Risk HDL > or = 40mg/dL- Desirable HDL >60 mg/dL - Negative Risk Performed By: #### P INR, 20439-8, 67375-6, CBCA, 28410-6, CMP, 4548-4, 6873-4 #### [facility] ([id number]) [address] [place] [address] 88831 #### HA1C #### [facility] ([id number]) [address] [place] [address] [address] [place] [address] Cholesterol in LDL [Mass/Vol] 76 mg/dL Normal <130 [facility] Comment on above: Result Comment: LDL <100 mg/dL - Desirable LDL >160 mg/dL - High Risk Performed By: #### P INR, 41883-7, 68409-4, CBCA, 92706-0, CMP, 4548-4, 6873-4 #### [facility] ([id number]) [address] [place] [address] 68409 #### HA1C #### [facility] ([id number]) [address] [facility], [address] [place] [address] Cholesterol in VLDL [Mass/Vol] 39 mg/dL High 0-30 [facility] Comment on above: Performed By: #### P INR, 07441-2, 67723-6, CBCA, 52442-8, CMP, 4548-4, 6873-4 #### [facility] ([id number]) [address] [place] [address] 50091 #### HA1C #### [facility] ([id number]) [address], [address] [place] [address] CHOLESTEROL:HDL 5.3 High 1.0-5.0 [facility] Comment on above: Performed By: #### P INR, 02406-5, 20551-2, CBCA, 25702-6, CMP, 4548-4, 6873-4 #### [facility] ([id number]) [address] [place] [address] 19062 #### HA1C #### [facility] ([id number]) [address], [address] [place] [address] Triglyceride [Mass/Vol] 196 mg/dL High 27-[address] [facility] Comment on above: Performed By: #### P INR, 64004-3, 82785-6, CBCA, 85978-7, CMP, 4548-4, 6873-4 #### [facility] ([id number]) [address] [address] [facility] [place] [address] #### HA1C #### [facility] ([id number]) [address] [place] [address], [address] [place] [address] MR BRAIN WO CONTon 4 MR BRAIN [...] than peripheral volume loss. Bilateral hippocampal atrophy, pmwi-we-bddmvsvt in severity. Few scattered foci of T2/FLAIR [...] Emmanuel Pastrana on 04/09/2024 9:55 AM Normal [facility] PHOSPHORUSon 04-09-2024 Phosphate [Mass/Vol] 4.5 mg/dL Normal 2.4-4.9 [facility] Comment on above: Performed By: #### P INR, 63215-0, 16113-5, CBCA, 28881-2, CMP, 4548-4, 6873-4 #### [facility] ([id number]) [address] [place] [address] 61779 #### HA1C #### [facility] ([id number]) [address], [address] [place] [address] PROTIME AND INRon 04-09-2024 INR Coag (PPP) [Relative time] 1.2 {INR} High 0.8-1.1 [facility] Comment on above: Performed By: #### P INR, 28641-3, 90768-4, CBCA, 88629-6, CMP, 4548-4, 6873-4 #### [facility] ([id number]) [address] [place] [address] 20689 #### HA1C #### [facility] ([id number]) [address] [facility], [address] [place] [address] PT Coag (PPP) [Time] 14.0 s High 9.8-13.2 [facility] Comment on above: Result Comment: NEW REFERENCE RANGE Performed By: #### P INR, 23897-5, 60005-6, CBCA, 04468-3, CMP, 4548-4, 6873-4 #### [facility] ([id number]) [address] [place] [address] 65278 #### HA1C #### [facility] ([id number]) [address], [address] [place] [address] Troponin I.cardiac High sens itivity method [Mass/Vol]on 04-09-2024 3 HOUR TROP I, HIGH SENSITIVITY 113 ng/L High <21 [facility] Comment on above: Result Comment: Elevations of hs-Troponin may be due to causes other than myocardial ischemia. Recommend serial hs-Troponin testing be performed. For the initial evaluation and management of chest pain patients, refer to the algorithms linked below. Emergency Patient: [email or web address]/[email or web address] &uh=acaea Inpatient: [email or web address]/[email or web address]&[email or web address] &uh=acaea Performed By: #### P INR, 03752-3, 44869-3, CBCA, 70143-2, CMP, 4548-4, 6873-4 #### [facility] ([id number]) [address] [place] [address] 58460 #### HA1C #### [facility] ([id number]) [address] [place] [address], [address] [place] [address] 1 HOUR TROP I, HIGH SENSITIVITY 60 ng/L High <21 [facility] Comment on above: Result Comment: Elevations of hs-Troponin may be due to causes other than myocardial ischemia. Recommend serial hs-Troponin testing be performed. For the initial evaluation and management of chest pain patients, refer to the algorithms linked below. Emergency Patient: [email or web address]/[email or web address]&[email or web address] &uh=acaea Inpatient: [email or web address]/[email or web address]&[email or web address] &uh=acaea Performed By: #### P INR, 67563-5, 07093-5, CBCA, 49486-1, CMP, 4548-4, 6873-4 #### [facility] ([id number]) [address] [place] [address] 22615 #### HA1C #### [facility] ([id number]) [address], [address] [place] [address] TROPONIN I, HIGH SENSITIVITY 38 ng/L High <21 [facility] Comment on above: Result Comment: Elevations of hs-Troponin may be due to causes other than myocardial ischemia. Recommend serial hs-Troponin testing be performed. For the initial evaluation and management of chest pain patients, refer to the algorithms linked below. Emergency Patient: [email or web address]&[email or web address] &uh=acaea Inpatient: [email or web address]?[email or web address]&x=50720 &uh=acaea Performed By: #### P INR, 51984-3, 28685-6, CBCA, 50825-2, CMP, 4548-4, 6873-4 #### [facility] ([id number]) [address] [place] [address], [place] [address] #### HA1C #### [facility] ([id number]) [address], [address] [place] [address] XR ANKLE LT MIN 3 VWSon 03-27 [...] Rothman MD on 04/09/2024 9:32 AM Normal [facility] XR KNEE LT 3 VWSon 4 [...] Keyes MD on 04/09/2024 9:29 AM Normal [facility] XR PELVIS 1 OR 2 VWSon [...] Rothman MD on 04/09/2024 9:37 AM Normal [facility] XR WRIST RT MIN 3 VWSon [...] Rothman MD on 04/09/2024 9:40 AM Normal [facility] aPTT Coag (PPP) [Time]on aPTT Coag (Bld) [Time] 24 s Low 26-37 Pr [facility] Comment on above: Result Comment: NEW REFERENCE RANGE Performed By: #### P INR, 70373-5, 69491-9, CBCA, 53289-0, CMP, 4548-4, 6873-4 #### [facility] ([id number]) [address] [place] [address] 71881 #### HA1C #### [facility] ([id number]) [address], [address] [place] [address] XR Knee - right 4 Viewson Findings: [...] space and varus deformity. MANUALLY TRANSCRIBED RESULTS [facility] Radiology Study observation (narrative) [facility] BASIC METABOLIC PANLon 11-05 Anion gap [Moles/Vol] 11 mmol/L Normal 5-15 [facility] Comment on above: Performed By: #### P INR, 29509-7, 23926-3, CBCA, 11332-7, CMP, 4548-4, 6873-4 #### [facility] ([id number]) [address] [place] [address] 34880 #### HA1C #### [facility] ([id number]) [address] [facility], [address] [place] [address] Calcium [Mass/Vol] 8.8 mg/dL Normal 8.5-10.5 [facility] Comment on above: Performed By: #### P INR, 03470-5, 33466-5, CBCA, 58885-3, CMP, 4548-4, 6873-4 #### [facility] ([id number]) [address] [place] [address] #### HA1C #### [facility] ([id number]) [address], [address] [place] [address] Chloride [Moles/Vol] 96 mmol/L Low 98-109 [facility] Comment on above: Performed By: #### P INR, 45634-4, 79646-2, CBCA, 25793-0, CMP, 4548-4, 6873-4 #### [facility] ([id number]) [address] [place] [address] 08971 #### HA1C #### [facility] ([id number]) [address] [facility], [address] [place] [address] CO2 [Moles/Vol] 24 mmol/L Normal 22-32 [facility] Comment on above: Performed By: #### P INR, 78268-7, 73970-6, CBCA, 77519-8, CMP, 4548-4, 6873-4 #### [facility] ([id number]) [address] [place] [address] 44071 #### HA1C #### [facility] ([id number]) [address] [facility], [address] [place] [address] Creatinine [Mass/Vol] 0.75 mg/dL Normal 0.70-1.20 [facility] Comment on above: Result Comment: METH OD TRACEABLE TO IDMS STANDARD Performed By: #### P INR, 84508-4, 97228-0, CBCA, 54750-6, CMP, 4548-4, 6873-4 #### [facility] ([id number]) [address] [place] [address] 21200 #### HA1C #### [facility] ([id number]) [address], [address] [place] [address] eGFR (CKD-EPI) NON-RACE DEPENDENT >90 Normal >59 [facility] Comment on above: Result Comment: Reported eGFR is based on the CKD-EPI 2020 equation that does not use a race coefficient. Performed By: #### P INR, 61406-3, 72629-1, CBCA, 70322-3, CMP, 4548-4, 6873-4 #### [facility] ([id number]) [address] [place] [address]607 #### HA1C #### [facility] ([id number]) [address] [place] [address] Glucose [Mass/Vol] 263 mg/dL High 65-99 [facility] Comment on above: Performed By: #### P INR, 46852-6, 89693-8, CBCA, 66281-2, CMP, 4548-4, 6873-4 #### [facility] ([id number]) [address] [place] [address] 27952 #### HA1C #### [facility] ([id number]) [address] [place] [address] Potassium [Moles/Vol] 4.2 mmol/L Normal 3.5-5.0 [facility] Comment on above: Performed By: #### P INR, 95300-1, 92262-3, CBCA, 57203-5, CMP, 4548-4, 6873-4 #### [facility] ([id number]) [address] [place] [address] 94652 #### HA1C #### [facility] ([id number]) [address] [place] [address] Sodium [Moles/Vol] 131 mmol/L Low 134-146 [facility] Comment on above: Performed By: #### P INR, 62065-0, 92784-0, CBCA, 56921-1, CMP, 4548-4, 6873-4 #### [facility] ([id number]) [address] [place] [address] #### HA1C #### [facility] ([id number]) [address], [address] [place] [address] Urea nitrogen [Mass/Vol] 21 mg/dL Normal 5-27 [facility] Comment on above: Performed By: #### P INR, 44419-2, 52863-6, CBCA, 77804-0, CMP, 4548-4, 6873-4 #### [facility] ([id number]) [address] [place] [address] 70593 #### HA1C #### [facility] ([id number]) [address], [address] [address] CBC AND AUTO DIFFon 10-29-19 Erythrocyte distribution width (RBC) [Ratio] 13.8 % Normal 11.5-15.0 [facility] Comment on above: Performed By: #### P INR, 70864-2, 60471-8, CBCA, 56114-5, CMP, 4548-4, 6873-4 #### [facility] ([id number]) [address] [place] [address] #### HA1C #### [facility] ([id number]) [address], [address] [place] [address] Hematocrit (Bld) [Volume fraction] 46.7 % Normal 39-49 [facility] Comment on above: Performed By: #### P INR, 52500-6, 31452-6, CBCA, 17068-3, CMP, 4548-4, 6873-4 #### [facility] ([id number]) [address] [place] [address] #### HA1C #### [facility] ([id number]) [address], [address] [place] [address] Hemoglobin (Bld) [Mass/Vol] 16.0 g/dL Normal 13.0-17.0 [facility] Comment on above: Performed By: #### P INR, 51869-3, 01118-7, CBCA, 97435-1, CMP, 4548-4, 6873-4 #### [facility] ([id number]) [address] [place] [id number] #### HA1C #### [facility] ([id number]) [address], [address] [place] [address] LYMPHOCYTE, ATYPICAL 8.8 % Normal [facility] Comment on above: Performed By: #### P INR, 32664-1, 16255-5, CBCA, 71721-1, CMP, 4548-4, 6873-4 #### [facility] ([id number]) [address] [place] [address] #### HA1C #### [facility] ([id number]) [address] [facility] [facility] [place] [address] Lymphocytes (Bld) [#/Vol] 1.9 10*3/uL Normal 1.0-3.5 [facility] Comment on above: Performed By: #### P INR, 64172-0, 65104-9, CBCA, 51866-0, CMP, 4548-4, 6873-4 #### [facility] ([id number]) [address] [place] [address] #### HA1C #### [facility] ([id number]) [address], [address] [place] [address] Lymphocytes/100 WBC (Bld) 46.1 % Normal [facility] Comment on above: Performed By: #### P INR, 63355-1, 69504-6, CBCA, 55319-8, CMP, 4548-4, 6873-4 #### [facility] ([id number]) [address] [place] [address] #### HA1C #### [facility] ([id number]) [address], [address] [place] [address] MCH (RBC) [Entitic mass] 29.4 pg Normal 27-34 [facility] Comment on above: Performed By: #### P INR, 89182-9, 16355-8, CBCA, 17898-4, CMP, 4548-4, 6873-4 #### [facility] ([id number]) [address] [place] [address] #### HA1C #### [facility] ([id number]) [address], [address] [place] [address] MCHC (RBC) [Mass/Vol] 34.2 g/dL Normal 32-36 [facility] Comment on above: Performed By: #### P INR, 92714-9, 52122-6, CBCA, 61553-9, CMP, 4548-4, 6873-4 #### [facility] ([id number]) [address] [place] [address] #### HA1C #### [facility] ([id number]) [address], [address] [place] [address] MCV (RBC) [Entitic vol] 86 fL Normal 80-[address] [facility] Comment on above: Performed By: #### P INR, 13859-7, 46312-7, CBCA, 02239-8, CMP, 4548-4, 6873-4 #### [facility] ([id number]) [address] [place] [address] 55096 #### HA1C #### [facility] ([id number]) [address], [address] [place] [address] Monocytes (Bld) [#/Vol] 0.2 10*3/uL Normal 0-0.9 [facility] Comment on above: Performed By: #### P INR, 81519-7, 60223-8, CBCA, 13073-7, CMP, 4548-4, 6873-4 #### [facility] ([id number]) [address] [place] [address] 58038 #### HA1C #### [facility] ([id number]) [address], [address] [place] [address] Monocytes/100 WBC (Bld) 4.9 % Normal P [facility] Comment on above: Performed By: #### P INR, 15819-6, 57084-2, CBCA, 13651-8, CMP, 4548-4, 6873-4 #### [facility] ([id number]) [address] [place] [address] 46592 #### HA1C #### [facility] ([id number]) [address] [facility], [address] [place] [address] Neutrophils (Bld) [#/Vol] 1.4 10*3/uL Low 1.5-6.6 [facility] Comment on above: Performed By: #### P INR, 80949-2, 53598-5, CBCA, 82709-9, CMP, 4548-4, 6873-4 #### [facility] ([id number]) [address] [place] [address] 05985 #### HA1C #### [facility] ([id number]) [address] [facility], [address] [place] [address] Platelet mean volume (Bld) [Entitic vol] 7.7 fL Normal 7-12 [facility] Comment on above: Performed By: #### P INR, 14891-9, 39377-0, CBCA, 22152-4, CMP, 4548-4, 6873-4 #### [facility] ([id number]) [address] [place] [address] 46411 #### HA1C #### [facility] ([id number]) [address], [address] [place] [address] Platelets (Bld) [#/Vol] 214 10*3/uL Normal 150-450 [facility] Comment on above: Performed By: #### P INR, 38979-3, 06840-5, CBCA, 08715-3, CMP, 4548-4, 6873-4 #### [facility] ([id number]) [address] [place] [address] 51614 #### HA1C #### [facility] ([id number]) [address], [address] [place] [address] RBC COUNT 5.43 X10E12/L Normal 4.10-5.70 [facility] Comment on above: Performed By: #### P INR, 91497-6, 77645-8, CBCA, 10869-9, CMP, 4548-4, 6873-4 #### [facility] ([id number]) [address] [place] [address] 23072 #### HA1C #### [facility] ([id number]) [address], [address] [place] [address] SEG NEUTROPHIL 40.2 % Normal [facility] Comment on above: Performed By: #### P INR, 42868-4, 63177-4, CBCA, 65403-0, CMP, 4548-4, 6873-4 #### [facility] ([id number]) [address] [place] [address] 29856 #### HA1C #### [facility] ([id number]) [address], [address] [place] [address] WBC (Bld) [#/Vol] 3.4 10*3/uL Low 4.0-11.0 [facility] Comment on above: Performed By: #### P INR, 06880-3, 07880-1, CBCA, 98238-4, CMP, 4548-4, 6873-4 #### [facility] ([id number]) [address] [place] [address] 46191 #### HA1C #### [facility] ([id number]) [address] [facility], [address] [place] [address] COMPREHENSIVE METABOLIC PANE [place] 10-29-2023 Albumin [Mass/Vol] 4.1 g/dL Normal 3.2-5.3 [facility] Comment on above: Performed By: #### P INR, 46472-5, 38665-4, CBCA, 57679-9, CMP, 4548-4, 6873-4 #### [facility] ([id number]) [address] [place] [address] 63636 #### HA1C #### [facility] ([id number]) [address] [facility], [address] [place] [address] ALP [Catalytic activity/Vol] 66 U/L Normal 39-130 [facility] Comment on above: Performed By: #### P INR, 57028-6, 28259-5, CBCA, 28726-7, CMP, 4548-4, 6873-4 #### [facility] ([id number]) [address] [place] [address] 92455 #### HA1C #### [facility] ([id number]) [address] [facility], [address] [place] [address] ALT [Catalytic activity/Vol] 27 U/L Normal 0-40 [facility] Comment on above: Performed By: #### P INR, 85340-7, 59495-8, CBCA, 91830-0, CMP, 4548-4, 6873-4 #### [facility] ([id number]) [address] [place] [address] 10349 #### HA1C #### [facility] ([id number]) [address], [address] [place] [address] Anion gap [Moles/Vol] 9 mmol/L Normal 5-15 [facility] Comment on above: Performed By: #### P INR, 07834-5, 69258-5, CBCA, 72174-3, CMP, 4548-4, 6873-4 #### [facility] ([id number]) [address] [place] [address] 99728 #### HA1C #### [facility] ([id number]) [address], [address] [place] [address] AST [Catalytic activity/Vol] 19 U/L Normal 0-41 [facility] Comment on above: Performed By: #### P INR, 66654-1, 11910-0, CBCA, 98583-5, CMP, 4548-4, 6873-4 #### [facility] ([id number]) [address] [place] [address] 83055 #### HA1C #### [facility] ([id number]) [address], [address] [place] [address] Bilirubin [Mass/Vol] 0.7 mg/dL Normal 0.3-1.2 [facility] Comment on above: Performed By: #### P INR, 17959-9, 93438-3, CBCA, 72568-1, CMP, 4548-4, 6873-4 #### [facility] ([id number]) [address] [place] [address] 02861 #### HA1C #### [facility] ([id number]) [address], [address] [place] [address] Calcium [Mass/Vol] 9.1 mg/dL Normal 8.5-10.5 [facility] Comment on above: Performed By: #### P INR, 06410-4, 50699-1, CBCA, 88928-2, CMP, 4548-4, 6873-4 #### [facility] ([id number]) [address] [place] [address] 29704 #### HA1C #### [facility] ([id number]) [address], [address] [place] [address] Chloride [Moles/Vol] 94 mmol/L Low 98-109 [facility] Comment on above: Performed By: #### P INR, 98297-5, 80328-4, CBCA, 72521-3, CMP, 4548-4, 6873-4 #### [facility] ([id number]) [address] [place] [address] 30863 #### HA1C #### [facility] ([id number]) [address] [facility], [address] [place] [address] CO2 [Moles/Vol] 28 mmol/L Normal 22-32 [facility] Comment on above: Performed By: #### P INR, 66339-1, 19325-7, CBCA, 52699-9, CMP, 4548-4, 6873-4 #### [facility] ([id number]) [address] [place] [address] 66635 #### HA1C #### [facility] ([id number]) [address], [address] [place] [address] Creatinine [Mass/Vol] 0.78 mg/dL Normal 0.70-1.20 [facility] Comment on above: Result Comment: METH OD TRACEABLE TO IDMS STANDARD Performed By: #### P INR, 22137-2, 94194-4, CBCA, 14334-7, CMP, 4548-4, 6873-4 #### [facility] ([id number]) [address] [place] [address] 80596 #### HA1C #### [facility] ([id number]) [address], [address] [place] [address] eGFR (CKD-EPI) NON-RACE DEPENDENT >90 Normal >59 [facility] Comment on above: Result Comment: Reported eGFR is based on the CKD-EPI 2020 equation that does not use a race coefficient. Performed By: #### P INR, 25716-9, 71424-7, CBCA, 44761-3, CMP, 4548-4, 6873-4 #### [facility] ([id number]) [address] [place] [address] 83283 #### HA1C #### [facility] ([id number]) [address], [address] [place] [address] Glucose [Mass/Vol] 232 mg/dL High 65-99 [facility] Comment on above: Performed By: #### P INR, 38670-4, 37466-3, CBCA, 91788-3, CMP, 4548-4, 6873-4 #### [facility] ([id number]) [address] [place] [address] 18568 #### HA1C #### [facility] ([id number]) [address], [address] [place] [address] Potassium [Moles/Vol] 4.1 mmol/L Normal 3.5-5.0 [facility] Comment on above: Performed By: #### P INR, 26353-1, 95354-6, CBCA, 93430-6, CMP, 4548-4, 6873-4 #### [facility] ([id number]) [address] [place] [address] 55839 #### HA1C #### [facility] ([id number]) [address], [address] [place] [address] Protein [Mass/Vol] 7.1 g/dL Normal 6.0-8.0 [facility] Comment on above: Performed By: #### P INR, 51698-5, 38691-4, CBCA, 30852-3, CMP, 4548-4, 6873-4 #### [facility] ([id number]) [address] [place] [address] 98853 #### HA1C #### [facility] ([id number]) [address] [facility], [address] [place] [address] Sodium [Moles/Vol] 131 mmol/L Low 134-146 [facility] Comment on above: Performed By: #### P INR, 76657-7, 42970-5, CBCA, 04200-4, CMP, 4548-4, 6873-4 #### [facility] ([id number]) [address] [place] [address] 56743 #### HA1C #### [facility] ([id number]) [address] [facility] [place] [address] Urea nitrogen [Mass/Vol] 14 mg/dL Normal 5-27 [facility] Comment on above: Performed By: #### P INR, 23460-7, 09008-6, CBCA, 31039-4, CMP, 4548-4, 6873-4 #### [facility] ([id number]) [address] [place] [address] 29145 #### HA1C #### [facility] ([id number]) [address] [facility], [address] [place] [address] MAGNESIUMon 10-29-2023 Magnesium [Mass/Vol] 1.9 mg/dL Normal 1.8-2.6 [facility] Comment on above: Performed By: #### P INR, 55793-3, 94133-3, CBCA, 57668-2, CMP, 4548-4, 6873-4 #### [facility] ([id number]) [address] [place] [address] 93973 #### HA1C #### [facility] ([id number]) [address], [address] [place] [address] CBC AND AUTO DIFFon 10-28-19 24 ABSOLUTE BASOPHIL 0.1 X10E9/L Normal 0.0-0.2 [facility] Comment on above: Performed By: #### P INR, 66424-5, 96530-3, CBCA, 42904-9, CMP, 4548-4, 6873-4 #### [facility] ([id number]) [address] [place] [address] 50332 #### HA1C #### [facility] ([id number]) [address], [address] [place] [address] ABSOLUTE NEUTROPHIL 1.5 X10E9/L Normal 1.5-6.6 [facility] Comment on above: Performed By: #### P INR, 97509-0, 90792-8, CBCA, 28817-9, CMP, 4548-4, 6873-4 #### [facility] ([id number]) [address] [place] [address] 96580 #### HA1C #### [facility] ([id number]) [address], [address] [place] [address] Basophils/100 WBC (Bld) 1.4 % Normal [facility] Comment on above: Performed By: #### P INR, 91334-7, 37368-0, CBCA, 61189-2, CMP, 4548-4, 6873-4 #### [facility] ([id number]) [address] [place] [address] 69609 #### HA1C #### [facility] ([id number]) [address], [address] [place] [address] Eosinophils (Bld) [#/Vol] 0.1 10*3/uL Normal 0.0-0.4 [facility] Comment on above: Performed By: #### P INR, 29852-4, 34776-1, CBCA, 36318-6, CMP, 4548-4, 6873-4 #### [facility] ([id number]) [address] [place] [address] 75117 #### HA1C #### [facility] ([id number]) [address], [address] [place] [address] Eosinophils/100 WBC (Bld) 3.1 % Normal [facility] Comment on above: Performed By: #### P INR, 64826-6, 65403-8, CBCA, 63894-1, CMP, 4548-4, 6873-4 #### [facility] ([id number]) [address] [place] [address] 09087 #### HA1C #### [facility] ([id number]) [address] [facility] [place] [address] Erythrocyte distribution width (RBC) [Ratio] 13.6 % Normal 11.5-15.0 [facility] Comment on above: Performed By: #### P INR, 09634-5, 54054-1, CBCA, 23756-2, CMP, 4548-4, 6873-4 #### [facility] ([id number]) [address] [place] [address] 22075 #### HA1C #### [facility] ([id number]) [address], [address] [place] [address] Hematocrit (Bld) [Volume fraction] 42.8 % Normal 39-49 [facility] Comment on above: Performed By: #### P INR, 63598-9, 30270-4, CBCA, 32848-9, CMP, 4548-4, 6873-4 #### [facility] ([id number]) [address] [place] [address] 35672 #### HA1C #### [facility] ([id number]) [address], [address] [place] [address] Hemoglobin (Bld) [Mass/Vol] 14.9 g/dL Normal 13.0-17.0 [facility] Comment on above: Performed By: #### P INR, 39244-9, 24419-7, CBCA, 73180-1, CMP, 4548-4, 6873-4 #### [facility] ([id number]) [address] [place] [address] 65953 #### HA1C #### [facility] ([id number]) [address], [address] [place] [address] Lymphocytes (Bld) [#/Vol] 1.8 10*3/uL Normal 1.0-3.5 [facility] Comment on above: Performed By: #### P INR, 59134-0, 47190-1, CBCA, 68005-1, CMP, 4548-4, 6873-4 #### [facility] ([id number]) [address] [place] [address] 31038 #### HA1C #### [facility] ([id number]) [address], [address] [place] [address] Lymphocytes/100 WBC (Bld) 46.0 % Normal [facility] Comment on above: Performed By: #### P INR, 92803-2, 69641-1, CBCA, 33672-0, CMP, 4548-4, 6873-4 #### [facility] ([id number]) [address] [place] [address] 44602 #### HA1C #### [facility] ([id number]) [address], [address] [place] [address] MCH (RBC) [Entitic mass] 29.6 pg Normal 27-34 [facility] Comment on above: Performed By: #### P INR, 66698-2, 42681-9, CBCA, 37071-8, CMP, 4548-4, 6873-4 #### [facility] ([id number]) [address] [place] [address] 17863 #### HA1C #### [facility] ([id number]) [address], [address] [place] [address] MCHC (RBC) [Mass/Vol] 34.7 g/dL Normal 32-36 [facility] Comment on above: Performed By: #### P INR, 92672-9, 55262-3, CBCA, 85167-4, CMP, 4548-4, 6873-4 #### [facility] ([id number]) [address] [place] [address] 47577 #### HA1C #### [facility] ([id number]) [address], [address] [place] [address] MCV (RBC) [Entitic vol] 86 fL Normal 80-[address] [facility] Comment on above: Performed By: #### P INR, 68483-2, 73579-0, CBCA, 94688-5, CMP, 4548-4, 6873-4 #### [facility] ([id number]) [address] [place] [address] 42192 #### HA1C #### [facility] ([id number]) [address], [address] [place] [address] Monocytes (Bld) [#/Vol] 0.4 10*3/uL Normal 0-0.9 [facility] Comment on above: Performed By: #### P INR, 73093-4, 01125-5, CBCA, 15536-7, CMP, 4548-4, 6873-4 #### [facility] ([id number]) [address] [place] [address] 30853 #### HA1C #### [facility] ([id number]) [address], [address] [place] [address] Monocytes/100 WBC (Bld) 10.4 % Normal [facility] Comment on above: Performed By: #### P INR, 09755-6, 96578-7, CBCA, 37244-7, CMP, 4548-4, 6873-4 #### [facility] ([id number]) [address] [place] [address] 56517 #### HA1C #### [facility] ([id number]) [address] [place] [address] Neutrophils/100 WBC (Bld) 39.1 % Normal [facility] Comment on above: Performed By: #### P INR, 83950-4, 32817-4, CBCA, 61929-6, CMP, 4548-4, 6873-4 #### [facility] ([id number]) [address] [place] [address] 28578 #### HA1C #### [facility] ([id number]) [address] [place] [address] Platelet mean volume (Bld) [Entitic vol] 7.9 fL Normal 7-12 [facility] Comment on above: Performed By: #### P INR, 50887-8, 36357-7, CBCA, 87279-1, CMP, 4548-4, 6873-4 #### [facility] ([id number]) [address] [place] [address] 97695 #### HA1C #### [facility] ([id number]) [address], [address] [place] [address] Platelets (Bld) [#/Vol] 197 10*3/uL Normal 150-450 [facility] Comment on above: Performed By: #### P INR, 57812-1, 22253-0, CBCA, 32617-8, CMP, 4548-4, 6873-4 #### [facility] ([id number]) [address] [place] [address] 66594 #### HA1C #### [facility] ([id number]) [address], [address] [place] [address] RBC COUNT 5.01 X10E12/L Normal 4.10-5.70 [facility] Comment on above: Performed By: #### P INR, 65442-3, 84550-8, CBCA, 02183-3, CMP, 4548-4, 6873-4 #### [facility] ([id number]) [address] [place] [address] 33083 #### HA1C #### [facility] ([id number]) [address], [address] [place] [address] WBC (Bld) [#/Vol] 3.9 10*3/uL Low 4.0-11.0 [facility] Comment on above: Performed By: #### P INR, 83241-3, 64443-8, CBCA, 78258-5, CMP, 4548-4, 6873-4 #### [facility] ([id number]) [address] [place] [address] 80726 #### HA1C #### [facility] ([id number]) [address], [address] [place] [address] COMPREHENSIVE METABOLIC PANE [place] 10-28-2023 Albumin [Mass/Vol] 3.8 g/dL Normal 3.2-5.3 [facility] Comment on above: Performed By: #### P INR, 49515-7, 90139-0, CBCA, 52316-2, CMP, 4548-4, 6873-4 #### [facility] ([id number]) [address] [place] [address] [place] [address] #### HA1C #### [facility] ([id number]) [address] [place] [address] ALP [Catalytic activity/Vol] 61 U/L Normal 39-130 [facility] Comment on above: Performed By: #### P INR, 60638-5, 30315-8, CBCA, 34441-8, CMP, 4548-4, 6873-4 #### [facility] ([id number]) [address] [place] [address] 36181 #### HA1C #### [facility] ([id number]) [address] [facility], [address] [place] [address] ALT [Catalytic activity/Vol] 22 U/L Normal 0-40 [facility] Comment on above: Performed By: #### P INR, 96133-9, 18244-0, CBCA, 62534-4, CMP, 4548-4, 6873-4 #### [facility] ([id number]) [address] [place] [address] 45424 #### HA1C #### [facility] ([id number]) [address] [place] [address] Anion gap [Moles/Vol] 10 mmol/L Normal 5-15 [facility] Comment on above: Performed By: #### P INR, 86744-0, 04694-4, CBCA, 06001-0, CMP, 4548-4, 6873-4 #### [facility] ([id number]) [address] [place] [address] 80336 #### HA1C #### [facility] ([id number]) [address] [place] [address] AST [Catalytic activity/Vol] 18 U/L Normal 0-41 [facility] Comment on above: Performed By: #### P INR, 22378-4, 73205-1, CBCA, 46637-0, CMP, 4548-4, 6873-4 #### [facility] ([id number]) [address] [place] [address] [id number] #### HA1C #### [facility] ([id number]) [address], [address] [place] [address] Bilirubin [Mass/Vol] 0.8 mg/dL Normal 0.3-1.2 [facility] Comment on above: Performed By: #### P INR, 25747-7, 11815-6, CBCA, 88957-4, CMP, 4548-4, 6873-4 #### [facility] ([id number]) [address] [place] [address] 34842 #### HA1C #### [facility] ([id number]) [address], [address] [place] [address] Calcium [Mass/Vol] 8.5 mg/dL Normal 8.5-10.5 [facility] Comment on above: Performed By: #### P INR, 20287-4, 82115-3, CBCA, 76325-9, CMP, 4548-4, 6873-4 #### [facility] ([id number]) [address] [place] [address]36 #### HA1C #### [facility] ([id number]) [address], [address] [place] [address] Chloride [Moles/Vol] 94 mmol/L Low 98-109 [facility] Comment on above: Performed By: #### P INR, 40421-8, 01565-7, CBCA, 48914-1, CMP, 4548-4, 6873-4 #### [facility] ([id number]) [address] [place] [address] 14989 #### HA1C #### [facility] ([id number]) [address], [address] [place] [address] CO2 [Moles/Vol] 26 mmol/L Normal 22-32 [facility] Comment on above: Performed By: #### P INR, 05724-9, 22265-6, CBCA, 47621-3, CMP, 4548-4, 6873-4 #### [facility] ([id number]) [address] [place] [address] 87167 #### HA1C #### [facility] ([id number]) [address] [place] [address] Creatinine [Mass/Vol] 0.79 mg/dL Normal 0.70-1.20 [facility] Comment on above: Result Comment: METH OD TRACEABLE TO IDMS STANDARD Performed By: #### P INR, 18997-4, 07800-1, CBCA, 49622-0, CMP, 4548-4, 6873-4 #### [facility] ([id number]) [address] [place] [address] [id number] #### HA1C #### [facility] ([id number]) [address], [address] [place] [address] eGFR (CKD-EPI) NON-RACE DEPENDENT >90 Normal >59 [facility] Comment on above: Result Comment: Reported eGFR is based on the CKD-EPI 2020 equation that does not use a race coefficient. Performed By: #### P INR, 24904-3, 16267-6, CBCA, 02455-8, CMP, 4548-4, 6873-4 #### [facility] ([id number]) [address] [place] [address] 89746 #### HA1C #### [facility] ([id number]) [address], [address] [place] [address] Glucose [Mass/Vol] 228 mg/dL High 65-99 [facility] Comment on above: Performed By: #### P INR, 42123-7, 91508-3, CBCA, 14261-4, CMP, 4548-4, 6873-4 #### [facility] ([id number]) [address] [place] [address] 51297 #### HA1C #### [facility] ([id number]) [address], [address] [place] [address] Potassium [Moles/Vol] 3.7 mmol/L Normal 3.5-5.0 [facility] Comment on above: Performed By: #### P INR, 68785-7, 16222-2, CBCA, 37855-7, CMP, 4548-4, 6873-4 #### [facility] ([id number]) [address] [place] [address] 70147 #### HA1C #### [facility] ([id number]) [address], [address] [place] [address] Protein [Mass/Vol] 6.3 g/dL Normal 6.0-8.0 [facility] Comment on above: Performed By: #### P INR, 95654-1, 28105-2, CBCA, 84303-9, CMP, 4548-4, 6873-4 #### [facility] ([id number]) [address] [place] [address]63 #### HA1C #### [facility] ([id number]) [address] [facility], [address] [place] [address] Sodium [Moles/Vol] 130 mmol/L Low 134-146 [facility] Comment on above: Performed By: #### P INR, 65766-1, 26748-8, CBCA, 60332-0, CMP, 4548-4, 6873-4 #### [facility] ([id number]) [address] [place] [address] 47798 #### HA1C #### [facility] ([id number]) [address], [address] [place] [address] Urea nitrogen [Mass/Vol] 16 mg/dL Normal 5-27 [facility] Comment on above: Performed By: #### P INR, 52361-0, 32958-2, CBCA, 42727-9, CMP, 4548-4, 6873-4 #### [facility] ([id number]) [address] [place] [address], [place] [address] #### HA1C #### [facility] ([id number]) [address], [address] [place] [address] CT CTA CAROTIDon 10-28-2023 CT CTA CAROTID [...] Giles MD on 10/28/2023 12:26 PM Normal [facility] CT CTA HEADon 10-28-2023 CT CTA [...] Mayes MD on 10/28/2023 12:38 PM Normal [facility] Glucose Glucometer (BldC) [M ass/Vol]on 10-28-2023 Glucose [Mass/Vol] 226 mg/dL High 65-99 [facility] Glucose [Mass/Vol] 279 mg/dL High 65-99 [facility] Glucose [Mass/Vol] 248 mg/dL High 65-99 [facility] Glucose [Mass/Vol] 221 mg/dL High 65-99 [facility] Lipid 1996 panelon Cholesterol [Mass/Vol] 219 mg/dL High 150-200 [facility] Comment on above: Performed By: #### P INR, 76911-2, 63324-3, CBCA, 85481-4, CMP, 4548-4, 6873-4 #### [facility] ([id number]) [address] [place] [address], [place] [address] #### HA1C #### [facility] ([id number]) [address] [facility], [address] [place] [address] Cholesterol in HDL [Mass/Vol] 43 mg/dL Normal >39 [facility] Comment on above: Result Comment: HDL <40 mg/dL - High Risk HDL > or = 40mg/dL- Desirable HDL >60 mg/dL - Negative Risk Performed By: #### P INR, 16209-3, 65658-5, CBCA, 42032-1, CMP, 4548-4, 6873-4 #### [facility] ([id number]) [address] [place] [address] 71681 #### HA1C #### [facility] ([id number]) [address] [place] [address], [address] [place] [address] Cholesterol in LDL [Mass/Vol] 143 mg/dL High <130 [facility] Comment on above: Result Comment: LDL <100 mg/dL - Desirable LDL >160 mg/dL - High Risk Performed By: #### P INR, 08284-3, 40819-1, CBCA, 53502-4, CMP, 4548-4, 6873-4 #### [facility] ([id number]) [address] [place] [address] 05433 #### HA1C #### [facility] ([id number]) [address] [facility], [address] [place] [address] Cholesterol in VLDL [Mass/Vol] 33 mg/dL High 0-30 [facility] Comment on above: Performed By: #### P INR, 52030-0, 94051-9, CBCA, 69261-8, CMP, 4548-4, 6873-4 #### [facility] ([id number]) [address] [place] [address] 39248 #### HA1C #### [facility] ([id number]) [address] [facility], [address] [place] [address] CHOLESTEROL:HDL 5.1 High 1.0-5.0 [facility] Comment on above: Performed By: #### P INR, 48367-9, 64547-1, CBCA, 67318-7, CMP, 4548-4, 6873-4 #### [facility] ([id number]) [address] [place] [address] 18144 #### HA1C #### [facility] ([id number]) [address] [facility], [address] [place] [address] Triglyceride [Mass/Vol] 164 mg/dL High 27-150 [facility] Comment on above: Performed By: #### P INR, 10343-5, 44703-7, CBCA, 41272-9, CMP, 4548-4, 6873-4 #### [facility] ([id number]) [address] [place] [address] 82222 #### HA1C #### [facility] ([id number]) [address] [facility], [address] [address] MAGNESIUMon 10-28-2023 Magnesium [Mass/Vol] 1.8 mg/dL Normal 1.8-2.6 [facility] Comment on above: Performed By: #### P INR, 02096-1, 94841-1, CBCA, 77068-8, CMP, 4548-4, 6873-4 #### [facility] ([id number]) [address] [place] [address] 22620 #### HA1C #### [facility] ([id number]) [address] [place] [address], [address] [place] [address] MR BRAIN WO CONTon 4 MR BRAIN [...] Anderson MD on 10/28/2023 10:39 AM Normal [facility] CBC AND AUTO DIFFon 10-27-19 24 ABSOLUTE BASOPHIL 0.0 X10E9/L Normal 0.0-0.2 [facility] Comment on above: Performed By: #### P INR, 89093-1, 94667-0, CBCA, 48335-3, CMP, 4548-4, 6873-4 #### [facility] ([id number]) [address] [facility], [place] [address] #### HA1C #### [facility] ([id number]) [address] [facility], [address] [place] [address] ABSOLUTE NEUTROPHIL 1.8 X10E9/L Normal 1.5-6.6 [facility] Comment on above: Performed By: #### P INR, 22052-2, 40450-3, CBCA, 22258-9, CMP, 4548-4, 6873-4 #### [facility] ([id number]) [address] [place] [address] 90374 #### HA1C #### [facility] ([id number]) [address] [place] [address], [address] [place] [address] Basophils/100 WBC (Bld) 1.2 % Normal P [facility] Comment on above: Performed By: #### P INR, 58972-3, 75767-8, CBCA, 83550-7, CMP, 4548-4, 6873-4 #### [facility] ([id number]) [address] [place] [address] 94150 #### HA1C #### [facility] ([id number]) [address] [place] [address], [address] [place] [address] Eosinophils (Bld) [#/Vol] 0.1 10*3/uL Normal 0.0-0.4 [facility] Comment on above: Performed By: #### P INR, 11342-8, 26186-4, CBCA, 87336-4, CMP, 4548-4, 6873-4 #### [facility] ([id number]) [address] [place] [address] 47053 #### HA1C #### [facility] ([id number]) [address] [place] [address], [address] [place] [address] Eosinophils/100 WBC (Bld) 2.5 % Normal [facility] Comment on above: Performed By: #### P INR, 48397-4, 79925-0, CBCA, 92516-7, CMP, 4548-4, 6873-4 #### [facility] ([id number]) [address] [place] [address] 19438 #### HA1C #### [facility] ([id number]) [address], [address] [place] [address] Erythrocyte distribution width (RBC) [Ratio] 13.5 % Normal 11.5-15.0 [facility] Comment on above: Performed By: #### P INR, 58872-0, 09740-4, CBCA, 45580-4, CMP, 4548-4, 6873-4 #### [facility] ([id number]) [address] [place] [address] 93891 #### HA1C #### [facility] ([id number]) [address], [address] [place] [address] Hematocrit (Bld) [Volume fraction] 43.3 % Normal 39-49 [facility] Comment on above: Performed By: #### P INR, 83403-2, 03345-7, CBCA, 42590-0, CMP, 4548-4, 6873-4 #### [facility] ([id number]) [address] [place] [address] 21304 #### HA1C #### [facility] ([id number]) [address], [address] [place] [address] Hemoglobin (Bld) [Mass/Vol] 14.9 g/dL Normal 13.0-17.0 [facility] Comment on above: Performed By: #### P INR, 29170-4, 78842-0, CBCA, 88036-0, CMP, 4548-4, 6873-4 #### [facility] ([id number]) [address] [place] [address] 67262 #### HA1C #### [facility] ([id number]) [address], [address] [place] [address] Lymphocytes (Bld) [#/Vol] 1.3 10*3/uL Normal 1.0-3.5 [facility] Comment on above: Performed By: #### P INR, 73278-6, 71303-8, CBCA, 11832-7, CMP, 4548-4, 6873-4 #### [facility] ([id number]) [address] [place] [address] 31343 #### HA1C #### [facility] ([id number]) [address] [facility], [address] [place] [address] Lymphocytes/100 WBC (Bld) 36.9 % Normal [facility] Comment on above: Performed By: #### P INR, 86942-6, 55169-8, CBCA, 57428-0, CMP, 4548-4, 6873-4 #### [facility] ([id number]) [address] [place] [address] 92538 #### HA1C #### [facility] ([id number]) [address] [facility], [address] [place] [address] MCH (RBC) [Entitic mass] 29.3 pg Normal 27-34 [facility] Comment on above: Performed By: #### P INR, 18117-3, 07039-5, CBCA, 76249-8, CMP, 4548-4, 6873-4 #### [facility] ([id number]) [address] [place] [address] 55796 #### HA1C #### [facility] ([id number]) [address] [facility], [address] [place] [address] MCHC (RBC) [Mass/Vol] 34.4 g/dL Normal 32-36 [facility] Comment on above: Performed By: #### P INR, 41213-1, 76097-5, CBCA, 93964-3, CMP, 4548-4, 6873-4 #### [facility] ([id number]) [address] [place] [address] 12879 #### HA1C #### [facility] ([id number]) [address], [address] [place] [address] MCV (RBC) [Entitic vol] 85 fL Normal 80-[address] [facility] Comment on above: Performed By: #### P INR, 72238-3, 71569-4, CBCA, 05631-8, CMP, 4548-4, 6873-4 #### [facility] ([id number]) [address] [place] [address] 73361 #### HA1C #### [facility] ([id number]) [address], [address] [place] [address] Monocytes (Bld) [#/Vol] 0.3 10*3/uL Normal 0-0.9 [facility] Comment on above: Performed By: #### P INR, 92950-3, 08179-6, CBCA, 43681-3, CMP, 4548-4, 6873-4 #### [facility] ([id number]) [address] [place] [address] 95656 #### HA1C #### [facility] ([id number]) [address], [address] [place] [address] Monocytes/100 WBC (Bld) 8.4 % Normal P [facility] Comment on above: Performed By: #### P INR, 86106-5, 34258-1, CBCA, 13948-6, CMP, 4548-4, 6873-4 #### [facility] ([id number]) [address] [place] [address] 84960 #### HA1C #### [facility] ([id number]) [address], [address] [place] [address] Neutrophils/100 WBC (Bld) 51.0 % Normal [facility] Comment on above: Performed By: #### P INR, 67315-3, 87976-5, CBCA, 09523-8, CMP, 4548-4, 6873-4 #### [facility] ([id number]) [address] [place] [address] 20563 #### HA1C #### [facility] ([id number]) [address], [address] [place] [address] Platelet mean volume (Bld) [Entitic vol] 7.7 fL Normal 7-12 [facility] Comment on above: Performed By: #### P INR, 27143-4, 83877-9, CBCA, 37468-2, CMP, 4548-4, 6873-4 #### [facility] ([id number]) [address] [place] [address] 97223 #### HA1C #### [facility] ([id number]) [address], [address] [place] [address] Platelets (Bld) [#/Vol] 192 10*3/uL Normal 150-450 [facility] Comment on above: Performed By: #### P INR, 21546-7, 06619-3, CBCA, 81841-1, CMP, 4548-4, 6873-4 #### [facility] ([id number]) [address] [place] [address] 76033 #### HA1C #### [facility] ([id number]) [address], [address] [place] [address] RBC COUNT 5.08 X10E12/L Normal 4.10-5.70 [facility] Comment on above: Performed By: #### P INR, 73067-3, 03266-9, CBCA, 47492-3, CMP, 4548-4, 6873-4 #### [facility] ([id number]) [address] [place] [address] 17512 #### HA1C #### [facility] ([id number]) [address], [address] [place] [address] WBC (Bld) [#/Vol] 3.6 10*3/uL Low 4.0-11.0 [facility] Comment on above: Performed By: #### P INR, 15208-7, 26440-5, CBCA, 48702-6, CMP, 4548-4, 6873-4 #### [facility] ([id number]) [address] [place] [address] 51581 #### HA1C #### [facility] ([id number]) [address] [facility], [address] [place] [address] COMPREHENSIVE METABOLIC PANE [place] 10-27-2023 Albumin [Mass/Vol] 4.0 g/dL Normal 3.2-5.3 [facility] Comment on above: Performed By: #### P INR, 58736-8, 17901-6, CBCA, 02464-3, CMP, 4548-4, 6873-4 #### [facility] ([id number]) [address] [place] [address] 75167 #### HA1C #### [facility] ([id number]) [address] [facility], [address] [place] [address] ALP [Catalytic activity/Vol] 65 U/L Normal 39-130 [facility] Comment on above: Performed By: #### P INR, 89985-3, 25079-0, CBCA, 46526-9, CMP, 4548-4, 6873-4 #### [facility] ([id number]) [address] [place] [address] 26587 #### HA1C #### [facility] ([id number]) [address] [facility], [address] [place] [address] ALT [Catalytic activity/Vol] 21 U/L Normal 0-40 [facility] Comment on above: Performed By: #### P INR, 99266-3, 21318-5, CBCA, 52145-4, CMP, 4548-4, 6873-4 #### [facility] ([id number]) [address] [place] [address] 02460 #### HA1C #### [facility] ([id number]) [address], [address] [place] [address] Anion gap [Moles/Vol] 4 mmol/L Low 5-15 [facility] Comment on above: Performed By: #### P INR, 39871-5, 54546-9, CBCA, 74513-6, CMP, 4548-4, 6873-4 #### [facility] ([id number]) [address] [place] [address] 52460 #### HA1C #### [facility] ([id number]) [address] [facility], [address] [place] [address] AST [Catalytic activity/Vol] 17 U/L Normal 0-41 [facility] Comment on above: Performed By: #### P INR, 13111-9, 37240-6, CBCA, 45679-7, CMP, 4548-4, 6873-4 #### [facility] ([id number]) [address] [place] [address] 17433 #### HA1C #### [facility] ([id number]) [address] [facility], [address] [place] [address] Bilirubin [Mass/Vol] 1.1 mg/dL Normal 0.3-1.2 [facility] Comment on above: Performed By: #### P INR, 91160-3, 45217-5, CBCA, 10005-9, CMP, 4548-4, 6873-4 #### [facility] ([id number]) [address] [place] [address] 47451 #### HA1C #### [facility] ([id number]) [address], [address] [place] [address] Calcium [Mass/Vol] 8.3 mg/dL Low 8.5-10.5 [facility] Comment on above: Performed By: #### P INR, 31328-0, 36416-6, CBCA, 39746-2, CMP, 4548-4, 6873-4 #### [facility] ([id number]) [address] [place] [address] 17133 #### HA1C #### [facility] ([id number]) [address] [facility], [address] [place] [address] Chloride [Moles/Vol] 101 mmol/L Normal 98-109 [facility] Comment on above: Performed By: #### P INR, 24662-7, 43375-2, CBCA, 55962-6, CMP, 4548-4, 6873-4 #### [facility] ([id number]) [address] [place] [address] 58387 #### HA1C #### [facility] ([id number]) [address], [address] [place] [address] CO2 [Moles/Vol] 24 mmol/L Normal 22-32 [facility] Comment on above: Performed By: #### P INR, 83961-3, 22769-3, CBCA, 68764-5, CMP, 4548-4, 6873-4 #### [facility] ([id number]) [address] [place] [address] 80821 #### HA1C #### [facility] ([id number]) [address], [address] [place] [address] Creatinine [Mass/Vol] 0.75 mg/dL Normal 0.70-1.20 [facility] Comment on above: Result Comment: METH OD TRACEABLE TO IDMS STANDARD Performed By: #### P INR, 33116-8, 45954-6, CBCA, 65067-4, CMP, 4548-4, 6873-4 #### [facility] ([id number]) [address] [place] [address] 60550 #### HA1C #### [facility] ([id number]) [address], [address] [place] [address] eGFR (CKD-EPI) NON-RACE DEPENDENT >90 Normal >59 [facility] Comment on above: Result Comment: Reported eGFR is based on the CKD-EPI 2020 equation that does not use a race coefficient. Performed By: #### P INR, 95267-7, 96551-0, CBCA, 55998-8, CMP, 4548-4, 6873-4 #### [facility] ([id number]) [address] [place] [address] 45287 #### HA1C #### [facility] ([id number]) [address] [facility], [address] [place] [address] Glucose [Mass/Vol] 272 mg/dL High 65-99 [facility] Comment on above: Performed By: #### P INR, 06849-3, 30082-5, CBCA, 59268-6, CMP, 4548-4, 6873-4 #### [facility] ([id number]) [address] [place] [address] 14626 #### HA1C #### [facility] ([id number]) [address] [facility], [address] [place] [address] Potassium [Moles/Vol] 4.1 mmol/L Normal 3.5-5.0 [facility] Comment on above: Performed By: #### P INR, 40168-2, 85464-1, CBCA, 51803-6, CMP, 4548-4, 6873-4 #### [facility] ([id number]) [address] [place] [address] 30832 #### HA1C #### [facility] ([id number]) [address], [address] [place] [address] Protein [Mass/Vol] 6.4 g/dL Normal 6.0-8.0 [facility] Comment on above: Performed By: #### P INR, 22226-2, 18399-2, CBCA, 17013-8, CMP, 4548-4, 6873-4 #### [facility] ([id number]) [address] [place] [address] 50792 #### HA1C #### [facility] ([id number]) [address], [address] [place] [address] Sodium [Moles/Vol] 129 mmol/L Low 134-146 [facility] Comment on above: Performed By: #### P INR, 42019-7, 31412-5, CBCA, 01259-6, CMP, 4548-4, 6873-4 #### [facility] ([id number]) [address] [place] [address] 25655 #### HA1C #### [facility] ([id number]) [address], [address] [place] [address] Urea nitrogen [Mass/Vol] 20 mg/dL Normal 5-27 [facility] Comment on above: Performed By: #### P INR, 33012-7, 79692-6, CBCA, 19760-8, CMP, 4548-4, 6873-4 #### [facility] ([id number]) [address] [place] [address] 50524 #### HA1C #### [facility] ([id number]) [address], [address] [place] [address] Glucose Glucometer (BldC) [M ass/Vol]on 10-27-2023 Glucose [Mass/Vol] 293 mg/dL High 65-99 [facility] Glucose [Mass/Vol] 311 mg/dL High 65-99 [facility] Glucose [Mass/Vol] 270 mg/dL High 65-99 [facility] Glucose [Mass/Vol] 280 mg/dL High 65-99 [facility] Glucose [Mass/Vol] 260 mg/dL High 65-99 [facility] MAGNESIUMon 10-27-2023 Magnesium [Mass/Vol] 2.2 mg/dL Normal 1.8-2.6 [facility] Comment on above: Performed By: #### P INR, 19016-8, 49362-4, CBCA, 65775-8, CMP, 4548-4, 6873-4 #### [facility] ([id number]) [address] [place] [address] 80995 #### HA1C #### [facility] ([id number]) [address] [place] [address], [address] [place] [address] Beta hydroxybutyrate [Moles/ Vol]on 10-26-2023 BetaHydroxybutyrate 1.69 mmol/L High 0.02-0.27 [facility] Comment on above: Performed By: #### P INR, 64223-9, 97941-9, CBCA, 65200-3, CMP, 4548-4, 6873-4 #### [facility] ([id number]) [address] [place] [id number] #### HA1C #### [facility] ([id number]) [address], [address] [place] [address] CBC AND AUTO DIFFon 10-26-20 23 ABSOLUTE BASOPHIL 0.0 X10E9/L Normal 0.0-0.2 [facility] Comment on above: Performed By: #### P INR, 73732-2, 39822-8, CBCA, 97495-7, CMP, 4548-4, 6873-4 #### [facility] ([id number]) [address] [place] [address] #### HA1C #### [facility] ([id number]) [address], [address] [place] [address] ABSOLUTE NEUTROPHIL 2.5 X10E9/L Normal 1.5-6.6 [facility] Comment on above: Performed By: #### P INR, 95645-9, 04077-1, CBCA, 61185-6, CMP, 4548-4, 6873-4 #### [facility] ([id number]) [address] [place] [id number] #### HA1C #### [facility] ([id number]) [address], [address] [place] [address] Basophils/100 WBC (Bld) 1.0 % Normal [facility] Comment on above: Performed By: #### P INR, 26453-8, 32173-5, CBCA, 30325-3, CMP, 4548-4, 6873-4 #### [facility] ([id number]) [address] [place] [address] #### HA1C #### [facility] ([id number]) [address], [address] [place] [address] Eosinophils (Bld) [#/Vol] 0.1 10*3/uL Normal 0.0-0.4 [facility] Comment on above: Performed By: #### P INR, 93051-9, 52409-9, CBCA, 66070-8, CMP, 4548-4, 6873-4 #### [facility] ([id number]) [address] [place] [address] #### HA1C #### [facility] ([id number]) [address], [address] [place] [address] Eosinophils/100 WBC (Bld) 1.2 % Normal [facility] Comment on above: Performed By: #### P INR, 72086-5, 81648-5, CBCA, 00290-6, CMP, 4548-4, 6873-4 #### [facility] ([id number]) [address] [place] [address] #### HA1C #### [facility] ([id number]) [address], [address] [place] [address] Erythrocyte distribution width (RBC) [Ratio] 13.4 % Normal 11.5-15.0 [facility] Comment on above: Performed By: #### P INR, 10440-5, 73960-0, CBCA, 51554-9, CMP, 4548-4, 6873-4 #### [facility] ([id number]) [address] [place] [address] #### HA1C #### [facility] ([id number]) [address], [address] [place] [address] Hematocrit (Bld) [Volume fraction] 46.5 % Normal 39-49 [facility] Comment on above: Performed By: #### P INR, 80934-4, 28630-5, CBCA, 63380-3, CMP, 4548-4, 6873-4 #### [facility] ([id number]) [address] [place] [address] #### HA1C #### [facility] ([id number]) [address], [address] [place] [address] Hemoglobin (Bld) [Mass/Vol] 16.0 g/dL Normal 13.0-17.0 [facility] Comment on above: Performed By: #### P INR, 83146-6, 02901-1, CBCA, 65770-8, CMP, 4548-4, 6873-4 #### [facility] ([id number]) [address] [place] [address] #### HA1C #### [facility] ([id number]) [address], [address] [place] [address] Lymphocytes (Bld) [#/Vol] 1.4 10*3/uL Normal 1.0-3.5 [facility] [facility] Comment on above: Performed By: #### P INR, 67448-3, 86010-3, CBCA, 82943-0, CMP, 4548-4, 6873-4 #### [facility] ([id number]) [address] [place] [address] 13457 #### HA1C #### [facility] ([id number]) [address], [address] [place] [address] Lymphocytes/100 WBC (Bld) 31.7 % Normal [facility] Comment on above: Performed By: #### P INR, 16523-0, 59760-9, CBCA, 95098-5, CMP, 4548-4, 6873-4 #### [facility] ([id number]) [address] [place] [address] 81169 #### HA1C #### [facility] ([id number]) [address], [address] [place] [address] MCH (RBC) [Entitic mass] 29.6 pg Normal 27-34 [facility] Comment on above: Performed By: #### P INR, 31148-5, 59137-7, CBCA, 05049-9, CMP, 4548-4, 6873-4 #### [facility] ([id number]) [address] [place] [address] 30302 #### HA1C #### [facility] ([id number]) [address], [address] [place] [address] MCHC (RBC) [Mass/Vol] 34.4 g/dL Normal 32-36 [facility] Comment on above: Performed By: #### P INR, 16585-5, 21843-9, CBCA, 64163-1, CMP, 4548-4, 6873-4 #### [facility] ([id number]) [address] [place] [address] 03834 #### HA1C #### [facility] ([id number]) [address], [address] [place] [address] MCV (RBC) [Entitic vol] 86 fL Normal 80-[address] [facility] Comment on above: Performed By: #### P INR, 45752-8, 65876-6, CBCA, 19779-0, CMP, 4548-4, 6873-4 #### [facility] ([id number]) [address] [place] [address] 11720 #### HA1C #### [facility] ([id number]) [address] [facility], [address] [place] [address] Monocytes (Bld) [#/Vol] 0.3 10*3/uL Normal 0-0.9 [facility] Comment on above: Performed By: #### P INR, 13116-4, 75997-1, CBCA, 19413-0, CMP, 4548-4, 6873-4 #### [facility] ([id number]) [address] [place] [address] 46131 #### HA1C #### [facility] ([id number]) [address] [facility], [address] [place] [address] Monocytes/100 WBC (Bld) 7.3 % Normal P [facility] Comment on above: Performed By: #### P INR, 75555-0, 88925-2, CBCA, 07434-9, CMP, 4548-4, 6873-4 #### [facility] ([id number]) [address] [place] [address] 73977 #### HA1C #### [facility] ([id number]) [address], [address] [place] [address] Neutrophils/100 WBC (Bld) 58.8 % Normal [facility] Comment on above: Performed By: #### P INR, 48957-9, 30857-4, CBCA, 89770-0, CMP, 4548-4, 6873-4 #### [facility] ([id number]) [address] [place] [address] 46455 #### HA1C #### [facility] ([id number]) [address] [facility], [address] [place] [address] Platelet mean volume (Bld) [Entitic vol] 8.0 fL Normal 7-12 [facility] Comment on above: Performed By: #### P INR, 14573-2, 36819-8, CBCA, 89043-9, CMP, 4548-4, 6873-4 #### [facility] ([id number]) [address] [place] [address] 99202 #### HA1C #### [facility] ([id number]) [address] [facility], [address] [place] [address] Platelets (Bld) [#/Vol] 219 10*3/uL Normal 150-450 [facility] Comment on above: Performed By: #### P INR, 88302-2, 99308-3, CBCA, 16451-0, CMP, 4548-4, 6873-4 #### [facility] ([id number]) [address] [place] [address] 12660 #### HA1C #### [facility] ([id number]) [address], [address] [place] [address] RBC COUNT 5.41 X10E12/L Normal 4.10-5.70 [facility] Comment on above: Performed By: #### P INR, 63693-9, 07103-8, CBCA, 21496-5, CMP, 4548-4, 6873-4 #### [facility] ([id number]) [address] [place] [address] 25245 #### HA1C #### [facility] ([id number]) [address], [address] [place] [address] WBC (Bld) [#/Vol] 4.3 10*3/uL Normal 4.0-11.0 [facility] Comment on above: Performed By: #### P INR, 35960-2, 13093-8, CBCA, 22702-3, CMP, 4548-4, 6873-4 #### [facility] ([id number]) [address] [place] [address] 11532 #### HA1C #### [facility] ([id number]) [address], [address] [place] [address] COMPREHENSIVE METABOLIC PANE [place] 10-26-2023 Albumin [Mass/Vol] 4.3 g/dL Normal 3.2-5.3 [facility] Comment on above: Performed By: #### P INR, 76026-6, 91319-1, CBCA, 90490-3, CMP, 4548-4, 6873-4 #### [facility] ([id number]) [address] [place] [address] 74626 #### HA1C #### [facility] ([id number]) [address], [address] [place] [address] ALP [Catalytic activity/Vol] 73 U/L Normal 39-130 [facility] Comment on above: Performed By: #### P INR, 54069-2, 96080-2, CBCA, 28516-1, CMP, 4548-4, 6873-4 #### [facility] ([id number]) [address] [place] [address] 51990 #### HA1C #### [facility] ([id number]) [address], [address] [place] [address] ALT [Catalytic activity/Vol] 25 U/L Normal 0-40 [facility] Comment on above: Performed By: #### P INR, 70556-5, 64985-8, CBCA, 70719-5, CMP, 4548-4, 6873-4 #### [facility] ([id number]) [address] [place] [address] 10986 #### HA1C #### [facility] ([id number]) [address] [facility], [address] [place] [address] Anion gap [Moles/Vol] 10 mmol/L Normal 5-15 [facility] Comment on above: Performed By: #### P INR, 53134-2, 01751-4, CBCA, 98342-1, CMP, 4548-4, 6873-4 #### [facility] ([id number]) [address] [place] [address] 81758 #### HA1C #### [facility] ([id number]) [address] [facility], [address] [place] [address] AST [Catalytic activity/Vol] 19 U/L Normal 0-41 [facility] Comment on above: Performed By: #### P INR, 39087-6, 92123-2, CBCA, 47879-3, CMP, 4548-4, 6873-4 #### [facility] ([id number]) [address] [place] [address] 00422 #### HA1C #### [facility] ([id number]) [address] [facility], [address] [place] [address] Bilirubin [Mass/Vol] 0.8 mg/dL Normal 0.3-1.2 [facility] Comment on above: Performed By: #### P INR, 10769-7, 94209-2, CBCA, 29854-8, CMP, 4548-4, 6873-4 #### [facility] ([id number]) [address] [place] [address] 74656 #### HA1C #### [facility] ([id number]) [address], [address] [place] [address] Calcium [Mass/Vol] 9.3 mg/dL Normal 8.5-10.5 [facility] Comment on above: Performed By: #### P INR, 60685-7, 77281-5, CBCA, 88365-8, CMP, 4548-4, 6873-4 #### [facility] ([id number]) [address] [place] [address] 50800 #### HA1C #### [facility] ([id number]) [address] [facility], [address] [place] [address] Chloride [Moles/Vol] 94 mmol/L Low 98-109 [facility] Comment on above: Performed By: #### P INR, 12353-9, 47642-8, CBCA, 03656-2, CMP, 4548-4, 6873-4 #### [facility] ([id number]) [address] [place] [address] 19707 #### HA1C #### [facility] ([id number]) [address], [address] [place] [address] CO2 [Moles/Vol] 26 mmol/L Normal 22-32 [facility] Comment on above: Performed By: #### P INR, 82928-6, 03957-6, CBCA, 21783-3, CMP, 4548-4, 6873-4 #### [facility] ([id number]) [address] [place] [address] 27175 #### HA1C #### [facility] ([id number]) [address] [facility], [address] [place] [address] Creatinine [Mass/Vol] 1.06 mg/dL Normal 0.70-1.20 [facility] Comment on above: Result Comment: METH OD TRACEABLE TO IDMS STANDARD Performed By: #### P INR, 54236-9, 62323-1, CBCA, 34778-8, CMP, 4548-4, 6873-4 #### [facility] ([id number]) [address] [place] [address] 58970 #### HA1C #### [facility] ([id number]) [address] [facility], [address] [place] [address] GFR/1.73 sq M.predicted among non-blacks MDRD (S/P/Bld) [Vol rate/Area] 75 mL/min/{1.73_m2} Normal >59 [facility] Comment on above: Result Comment: Reported eGFR is based on the CKD-EPI 2020 equation that does not use a race coefficient. Performed By: #### P INR, 63791-6, 20150-8, CBCA, 92938-6, CMP, 4548-4, 6873-4 #### [facility] ([id number]) [address] [place] [address] 74226 #### HA1C #### [facility] ([id number]) [address] [facility], [address] [place] [address] Glucose [Mass/Vol] 453 mg/dL Critically high 65-99 [facility] Comment on above: Performed By: #### P INR, 07352-6, 71783-6, CBCA, 63692-7, CMP, 4548-4, 6873-4 #### [facility] ([id number]) [address] [place] [address] 04975 #### HA1C #### [facility] ([id number]) [address], [address] [place] [address] Potassium [Moles/Vol] 4.5 mmol/L Normal 3.5-5.0 [facility] Comment on above: Performed By: #### P INR, 67881-5, 04675-4, CBCA, 53140-5, CMP, 4548-4, 6873-4 #### [facility] ([id number]) [address] [place] [address] 15893 #### HA1C #### [facility] ([id number]) [address] [facility], [address] [place] [address] Protein [Mass/Vol] 7.2 g/dL Normal 6.0-8.0 [facility] Comment on above: Performed By: #### P INR, 42236-8, 06083-8, CBCA, 24157-6, CMP, 4548-4, 6873-4 #### [facility] ([id number]) [address] [place] [address] 57109 #### HA1C #### [facility] ([id number]) [address] [facility], [address] [place] [address] Sodium [Moles/Vol] 130 mmol/L Low 134-146 [facility] Comment on above: Performed By: #### P INR, 76491-0, 03728-7, CBCA, 12972-9, CMP, 4548-4, 6873-4 #### [facility] ([id number]) [address] [place] [address] 41159 #### HA1C #### [facility] ([id number]) [address], [address] [place] [address] Urea nitrogen [Mass/Vol] 29 mg/dL High 5-27 [facility] Comment on above: Performed By: #### P INR, 81243-7, 20712-8, CBCA, 28132-3, CMP, 4548-4, 6873-4 #### [facility] ([id number]) [address] [place] [address] #### HA1C #### [facility] ([id number]) [address] [facility], [address] [place] [address] CT BRAIN WO CONTon 3 CT BRAIN [...] Denney MD on 10/26/2023 6:42 PM Normal [facility] DRUG SCREEN, URINEon 023 AMPHETAMINE/METHAMP Negative Normal NEG [facility] Comment on above: Result Comment: AMPH /METH screening cut off = 1000 ng/mL Performed By: #### P INR, 99078-1, 17018-9, CBCA, 99431-3, CMP, 4548-4, 1673-4 #### [facility] ([id number]) [address] [place] [address], [place] [address] #### HA1C #### [facility] ([id number]) [address], [address] [place] [address] BARBITURATES Negative Normal NEG [facility] Comment on above: Result Comment: Elsie iturates screening cut off value = 200 ng/mL Performed By: #### P INR, 00922-7, 15913-8, CBCA, 22410-0, CMP, 4548-4, 6873-4 #### [facility] ([id number]) [address] [place] [address] #### HA1C #### [facility] ([id number]) [address], [address] [place] [address] BENZODIAZEPINES Negative Normal [facility] Comment on above: Result Comment: James odiazepines screening cut off value = 200 ng/mL Performed By: #### P INR, 75615-4, 14167-9, CBCA, 55695-7, CMP, 4548-4, 6873-4 #### [facility] ([id number]) [address] [place] [address] 40224 #### HA1C #### [facility] ([id number]) [address], [address] [place] [address] CANNABINOIDS Negative Normal NEG [facility] Comment on above: Result Comment: Shawn abinoids/THC screening cut off value = 50 ng/mL Performed By: #### P INR, 07514-0, 29193-1, CBCA, 58136-8, CMP, 4548-4, 6873-4 #### [facility] ([id number]) [address] [place] [address] 33160 #### HA1C #### [facility] ([id number]) [address], [address] [place] [address] COCAINE METABOLITE Negative Normal NEG [facility] Comment on above: Result Comment: Coca ine screening cut off value = 300 ng/mL Performed By: #### P INR, 36446-4, 71856-1, CBCA, 71797-0, CMP, 4548-4, 6873-4 #### [facility] ([id number]) [address] [place] [address] 15393 #### HA1C #### [facility] ([id number]) [address], [address] [place] [address] ECSTASY Negative Normal NEG [facility] Comment on above: Result Comment: Ecst asy screening cut off value = 500 ng/mL This report is intended for use in clinical monitoring or management of patients. Performed By: #### P INR, 82921-2, 80317-8, CBCA, 57522-1, CMP, 4548-4, 6873-4 #### [facility] ([id number]) [address] [place] [address] 74914 #### HA1C #### [facility] ([id number]) [address] [facility], [address] [place] [address] METHADONE Negative Normal NEG [facility] Comment on above: Result Comment: Meth adone screening cut off value = 300 ng/mL. Performed By: #### P INR, 74839-8, 04539-0, CBCA, 82262-1, CMP, 4548-4, 6873-4 #### [facility] ([id number]) [address] [place] [address] 45601 #### HA1C #### [facility] ([id number]) [address] [facility], [address] [place] [address] OPIATES Negative Normal NEG [facility] Comment on above: Result Comment: Opia yanira screening cut off value = 300 ng/mL NOTE: This test is used for the detection of codeine, hydrocodone (>1000 ng/mL), morphine and hydromorphone (>900 ng/mL) in urine. Performed By: #### P INR, 53444-4, 82749-5, CBCA, 95016-4, CMP, 4548-4, 6873-4 #### [facility] ([id number]) [address] [place] [address] 63140 #### HA1C #### [facility] ([id number]) [address], [address] [place] [address] OXYCODONE Negative Normal NEG [facility] Comment on above: Result Comment: Oxyc odone screening cut off value = 300 ng/mL NOTE: This test is used for the detection of oxycodone and oxymorphone in urine. Performed By: #### P INR, 83061-0, 19454-0, CBCA, 95660-2, CMP, 4548-4, 6873-4 #### [facility] ([id number]) [address] [place] [address] 88634 #### HA1C #### [facility] ([id number]) [address], [address] [place] [address] PHENCYCLIDINE Negative Normal NEG [facility] Comment on above: Result Comment: Phen cyclidine screening cut off value = 25 ng/mL Performed By: #### P INR, 00906-3, 85880-4, CBCA, 39706-9, CMP, 4548-4, 6873-4 #### [facility] ([id number]) [address] [place] [address] 64340 #### HA1C #### [facility] ([id number]) [address], [address] [place] [address] Glucose Glucometer (BldC) [M ass/Vol]on 10-26-2023 Glucose [Mass/Vol] 286 mg/dL High 65-99 [facility] Glucose [Mass/Vol] 385 mg/dL High 65-99 [facility] HA1C CONFIRMATION - NO CHARG Ian 10-26-2023 HbA1c (Bld) [Mass fraction] 15.3 % High <=5.6 [facility] Comment on above: Result Comment: NOTE INTERPRETIVE INFORMATION: Hemoglobin A1c HbA1c values of 5.7-6.4 percent indicate an increased risk for developing diabetes mellitus. HbA1c values greater than or equal to 6.5 percent are diagnostic of diabetes mellitus. For diagnosis of diabetes in individuals without unequivocal hyperglycemia, results should be confirmed by repeat testing. Performed By: #### P INR, 20425-0, 47169-7, CBCA, 82004-9, CMP, 4548-4, 6873-4 #### [facility] ([id number]) [address] [place] [address] 10634 #### HA1C #### [facility] ([id number]) [address], [address] [place] [address] HGB A1C (GLYCO-HGB)on 2022 AVERAGE GLUCOSE >398 Normal [facility] Comment on above: Performed By: #### P INR, 33224-7, 57993-9, CBCA, 58941-9, CMP, 4548-4, 6873-4 #### [facility] ([id number]) [address] [place] [address] 55765 #### HA1C #### [facility] ([id number]) [address], [address] [place] [address] HbA1c (Bld) [Mass fraction] % High 4.4-5.6 [facility] Comment on above: Result Comment: NOTE ADA Guidelines Result HgbA1c Normal : less than 5.7 % Prediabetes : 5.7 % to 6.4 % Diabetes : > 6.4 % Use with caution in patients with abnormal hemoglobin variants as the half-life of red blood cells and in vivo glycation rates are affected. Performed By: #### P INR, 81188-4, 98789-8, CBCA, 25968-9, CMP, 4548-4, 6873-4 #### [facility] ([id number]) [address] [place] [address] 29313 #### HA1C #### [facility] ([id number]) [address] [facility], [address] [place] [address] HbA1c (Bld) [Mass fraction]o n 10-26-2023 Glucose [Mass/Vol] 392 mg/dL Normal [facility] Comment on above: Result Comment: NOTE Performed By: [employer] [address] [place] [address] Complex Manager: Aramis Taylor MD, PhD CLIA Number: [id number] Performed By: #### P INR, 92846-5, 21365-2, CBCA, 31700-4, CMP, 4548-4, 6873-4 #### [facility] ([id number]) [address] [place] [address] 04731 #### HA1C #### [facility] ([id number]) [address] [place] [address], [address] [place] [address] MAGNESIUMon 10-26-2023 Magnesium [Mass/Vol] 1.6 mg/dL Low 1.8-2.6 [facility] Comment on above: Performed By: #### P INR, 86207-1, 90656-8, CBCA, 82886-1, CMP, 4548-4, 6873-4 #### [facility] ([id number]) [address] [place] [address] 12530 #### HA1C #### [facility] ([id number]) [address] [place] [address], [address] [place] [address] PROTIME AND INRon 10-26-2023 INR Coag (PPP) [Relative time] 1.0 {INR} Normal 0.8-1.1 [facility] Comment on above: Performed By: #### P INR, 66334-9, 63762-8, CBCA, 85890-0, CMP, 4548-4, 6873-4 #### [facility] ([id number]) [address] [place] [address] 74741 #### HA1C #### [facility] ([id number]) [address] [facility], [address] [place] [address] PT Coag (PPP) [Time] 11.4 s Normal 9.8-13.2 [facility] Comment on above: Result Comment: NEW REFERENCE RANGE Performed By: #### P INR, 65822-3, 37814-1, CBCA, 02721-9, CMP, 4548-4, 6873-4 #### [facility] ([id number]) [address] [place] [address] 92024 #### HA1C #### [facility] ([id number]) On license of [facility], [address] [place] [address] TROPONIN Ion 10-26-2023 Troponin I.cardiac [Mass/Vol] 0.01 ng/mL Normal 0.00-0.04 [facility] Comment on above: Performed By: #### P INR, 56010-7, 21856-4, CBCA, 45315-7, CMP, 4548-4, 6873-4 #### [facility] ([id number]) [address] [place] [address] 38566 #### HA1C #### [facility] ([id number]) [address] [place] [address], [address] [place] [address] URN MACROSCOPIC NURon 2022 BILIRUBIN ALLYN Negative Normal NEG [facility] Comment on above: Performed By: #### P INR, 96302-6, 94559-5, CBCA, 00746-5, CMP, 4548-4, 6873-4 #### [facility] ([id number]) [address] [place] [id number] #### HA1C #### [facility] ([id number]) [address], [address] [place] [address] BLOOD/HGB ALLYN Trace Abnormal NEG [facility] Comment on above: Performed By: #### P INR, 23719-3, 30883-0, CBCA, 32661-3, CMP, 4548-4, 6873-4 #### [facility] ([id number]) [address] [place] [address] #### HA1C #### [facility] ([id number]) [address] [facility], [address] [place] [address] GLUCOSE ALLYN >=1000 Abnormal NEG [facility] Comment on above: Performed By: #### P INR, 85918-8, 65708-1, CBCA, 70823-1, CMP, 4548-4, 6873-4 #### [facility] ([id number]) [address] [place] [address] #### HA1C #### [facility] ([id number]) [address] [facility], [address] [place] [address] KETONES ALLYN 40 mg/dL Abnormal NEG [facility] Comment on above: Performed By: #### P INR, 50854-7, 39816-7, CBCA, 84835-4, CMP, 4548-4, 6873-4 #### [facility] ([id number]) [address] [place] [address] #### HA1C #### [facility] ([id number]) [address] [facility], [address] [place] [address] LEUKOCYTE ESTERASE ALLYN Negative Normal NEG [facility] Comment on above: Performed By: #### P INR, 33966-9, 81339-1, CBCA, 40063-9, CMP, 4548-4, 6873-4 #### [facility] ([id number]) [address] [place] [address] [place] [address] #### HA1C #### [facility] ([id number]) [address] [place] [address], [address] [place] [address] NITRITE ALLYN Negative Normal NEG [facility] Comment on above: Performed By: #### P INR, 00753-0, 09664-2, CBCA, 77923-9, CMP, 4548-4, 6873-4 #### [facility] ([id number]) [address] [place] [address] #### HA1C #### [facility] ([id number]) [address] [place] [address], [address] [place] [address] PH ALLYN 5.5 Normal 5.0-8.5 [facility] Comment on above: Performed By: #### P INR, 36002-2, 70842-7, CBCA, 82097-6, CMP, 4548-4, 6873-4 #### [facility] ([id number]) [address] [place] [address] #### HA1C #### [facility] ([id number]) [address] [place] [address], [address] [place] [address] PROTEIN ALLYN Negative Normal NEG [facility] Comment on above: Performed By: #### P INR, 58462-5, 44378-9, CBCA, 30878-7, CMP, 4548-4, 6873-4 #### [facility] ([id number]) [address] [place] [address] #### HA1C #### [facility] ([id number]) [address] [place] [address], [address] [place] [address] SPECIFIC GRAVITY ALLYN 1.010 Normal 1.003-1.035 [facility] Comment on above: Performed By: #### P INR, 48397-1, 60248-2, CBCA, 41857-4, CMP, 4548-4, 6873-4 #### [facility] ([id number]) [address] [place] [address] #### HA1C #### [facility] ([id number]) [address], [address] [place] [address] UROBILINOGEN ALLYN 0.2 eu/dL Normal <1.1 [facility] Comment on above: Performed By: #### P INR, 65395-5, 40234-5, CBCA, 88148-4, CMP, 4548-4, 6873-4 #### [facility] ([id number]) [address] [place] [address] #### HA1C #### [facility] ([id number]) [address], [address] [place] [address] VENOUS BLOOD GASon 3 MICHELLE'S TEST Normal [facility] Comment on above: Performed By: #### V BG #### [facility] ([id number]) [address] [place] [address]171 Base excess Calc (Bld) [Moles/Vol] 0.0 mmol/L Normal 0.0-2.0 [facility] Comment on above: Performed By: #### V BG #### [facility] ([id number]) [address] [place] [address] 97222 Body temperature 98.6 [degF] Normal 37.0 [facility] Comment on above: Performed By: #### V BG #### [facility] ([id number]) [address] [place] [address]512 HCO3 (Bld) [Moles/Vol] 25.3 mmol/L High 20.0-24.0 [facility] Comment on above: Performed By: #### V BG #### [facility] ([id number]) [address] [place] [address]103 Oxygen saturation in Blood 73.0 % Low >80.0 [facility] Comment on above: Performed By: #### V BG #### [facility] ([id number]) [address] [place] [address] OXYGEN SOURCE [employer] Normal [facility] Comment on above: Performed By: #### V BG #### [facility] ([id number]) [address] [place] [address] PCO2, VENOUS 41.3 MMHG Normal 35-50 [facility] Comment on above: Performed By: #### V BG #### [facility] ([id number]) [address] [place] [address]51 PH, VENOUS 7.396 Normal 7.320-7.420 [facility] Comment on above: Performed By: #### V BG #### [facility] ([id number]) [address] [place] [address]147 PO2, VENOUS 39 MMHG Normal 30-50 [facility] Comment on above: Performed By: #### V BG #### [facility] ([id number]) [address] [place] [address] SAMPLE SITE N/A Normal [facility] Comment on above: Performed By: #### V BG #### [facility] ([id number]) [address] [place] [address] [place] [address] SAMPLE TYPE VENOUS Normal [facility] Comment on above: Performed By: #### V BG #### [facility] ([id number]) [address] [place] [address] 09721 XR CHEST 1 VWon 10-26-2023 XR CHEST [...] Keyes MD on 10/26/2023 6:36 PM Normal [facility] aPTT Coag (PPP) [Time]on aPTT Coag (Bld) [Time] 34 s Normal 26-37 Pr [facility] Comment on above: Result Comment: NEW REFERENCE RANGE Performed By: #### P INR, 99470-6, 93842-5, CBCA, 35134-7, CMP, 4548-4, 6873-4 #### [facility] ([id number]) [address] [place] [address], [place] [address] #### HA1C #### [facility] ([id number]) [address], [address] [place] [address] Vital Signs Date Time Vital Sign Value Performing Clinician Facility 03-31-2024 10:20-0400 Body height 180.34 cm [facility] 03-31-2024 10:20-0400 Body mass index (BMI) [Ratio] 34.9 kg/m2 [facility] 03-31-2024 10:20-0400 Body weight 113.53 kg [facility] 03-31-2024 10:20-0400 Diastolic blood pressure 73 mm[Hg] [facility] 03-31-2024 10:20-0400 Heart rate 79 /min [facility] 03-31-2024 10:20-0400 Respiratory rate 16 /min [facility] 03-31-2024 10:20-0400 Systolic blood pressure 149 mm[Hg] [facility] 03-26-2024 10:56-0400 Body height 180.34 cm [facility] 03-26-2024 10:56-0400 Body mass index (BMI) [Ratio] 34.9 kg/m2 [facility] 03-26-2024 10:56-0400 Body weight 113.62 kg [facility] 03-26-2024 10:56-0400 Diastolic blood pressure 81 mm[Hg] [facility] 03-26-2024 10:56-0400 Heart rate 86 /min [facility] 03-26-2024 10:56-0400 Respiratory rate 20 /min [facility] 03-26-2024 10:56-0400 Systolic blood pressure 157 mm[Hg] [facility] 01-23-2024 10:33-0400 Body height 180.34 cm [facility] 01-23-2024 10:33-0400 Body mass index (BMI) [Ratio] 36.1 kg/m2 [facility] 01-23-2024 10:33-0400 Body weight 117.65 kg [facility] 01-23-2024 10:33-0400 Diastolic blood pressure 69 mm[Hg] [facility] 01-23-2024 10:33-0400 Heart rate 71 /min [facility] 01-23-2024 10:33-0400 Respiratory rate 20 /min [facility] 01-23-2024 10:33-0400 Systolic blood pressure 159 mm[Hg] [facility] 12-30-2023 10:35-0500 Body height 177.8 cm Klaus Yeboah MD Work Phone: [facility] 12-30-2023 10:35-0500 Body mass index (BMI) [Ratio] 35.01 kg/m2 Klaus Yeboah MD Work Phone: [facility] 12-30-2023 10:35-0500 Body weight 110.68 kg Klaus Yeboah MD Work Phone: [facility] 12-11-2023 11:41-0500 Body height 177.8 cm Alexis Rojas MD Work Phone: [facility] 12-11-2023 11:41-0500 Body mass index (BMI) [Ratio] 35.01 kg/m2 Alexis Rojas MD Work Phone: [employer] 12-11-2023 11:41-0500 Body weight 110.68 kg Alexis Rojas MD Work Phone: [facility] 12-11-2023 11:41-0500 Diastolic blood pressure 73 mm[Hg] Alexis Rojas MD Work Phone: [facility] 12-11-2023 11:41-0500 Heart rate 90 /min Alexis Rojas MD Work Phone: [facility] 12-11-2023 11:41-0500 Systolic blood pressure 126 mm[Hg] Alexis Rojas MD Work Phone: [facility] [employer] 11-26-2023 10:45-0500 Body height 180.34 cm Vinnie Ball Other [facility] 11-26-2023 10:45-0500 Body mass index (BMI) [Ratio] 35.31 kg/m2 Vinnie Ball Other [facility] [employer] Other 11-26-2023 10:45-0500 Body weight 114.85 kg Vinnie Ball Other [facility] [employer] Other 11-26-2023 10:45-0500 Body weight 114.84 kg [facility] 11-26-2023 10:45-0500 Diastolic blood pressure 80 mm[Hg] Vinnie Ball Other [facility] 11-26-2023 10:45-0500 Respiratory rate 16 /min Vinnie Ball Other [facility] [employer] Other 11-26-2023 10:45-0500 Systolic blood pressure 132 mm[Hg] Vinnie Ball Other [facility] Encounters Encounter Date Encounter Type Care Provider Facility Start: 09-09-2024 End: 09-09-2024 [facility] Start: 06-15-2024 ambulatory SARAH READ [facility] Start: 06-05-2024 ambulatory VINNIE [facility] Start: 06-05-2024 Encounter for other preprocedural examination SARAH Urban [facility] Start: 06-05-2024 End: 06-11-2024 Evaluation and management of inpatient POMEROY Santos [facility] Start: 06-05-2024 End: 06-12-2024 Emergency department patient visit PATRIA [place] [facility] Start: 05-27-2024 End: 06-01-2024 Evaluation and management of inpatient [facility] Start: 05-13-2024 End: 05-13-2024 ambulatory [facility] Start: 05-12-2024 End: 05-13-2024 Emergency department patient visit BROOK Tamara DEMI [facility] Start: 04-13-2024 End: 04-13-2024 ambulatory [facility] Start: 04-10-2024 End: 04-21-2024 Evaluation and management of inpatient MIRNA BAJWA [facility] Start: 04-09-2024 End: 04-11-2024 Emergency department patient visit YUDELKA PARIKH [facility] Start: 04-09-2024 End: 04-10-2024 ambulatory [facility] Start: 03-31-2024 End: 03-31-2024 ambulatory [facility] Work Phone: Start: 03-31-2024 End: 03-31-2024 Patient encounter procedure [facility] Work Phone: Start: 03-29-2024 End: 04-26-2024 [facility] Start: 03-26-2024 End: 03-26-2024 ambulatory [facility] Work Phone: Start: 03-26-2024 End: 03-26-2024 Patient encounter procedure [facility] Work Phone: Start: 02-13-2024 End: 03-27-2024 ambulatory [facility] Start: 02-12-2024 End: 02-12-2024 ambulatory [facility] Start: 02-04-2024 End: 02-04-2024 ambulatory JASON RODRIGUEZ Not Available Start: 01-23-2024 End: 01-23-2024 ambulatory [facility] Work Phone: Start: 01-23-2024 End: 01-23-2024 Patient encounter procedure [facility] Work Phone: Start: 12-30-2023 End: 12-30-2023 Office outpatient new 30 minutes Klaus Yeboah MD Work Phone: [facility] Comment on above: Arthritis of right k nee (Primary Dx); Right knee pain, unspecified chronicity Start: 12-30-2023 End: 12-30-2023 ambulatory [facility] Start: 12-11-2023 End: 12-11-2023 Office outpatient visit 25 minutes Alexis Rojas MD Work Phone: [facility] Comment on above: Sequelae, post-strok e (Primary Dx); Cerebrovascular accident (CVA) due to thrombosis of precerebral artery ([facility]); Type 2 diabetes mellitus with hyperglycemia, with long-term current use of insulin ([facility]); Transient alteration of awareness; Mixed hyperlipidemia; Blurred vision; Gait instability Start: 12-11-2023 End: 12-11-2023 ambulatory JON [facility] Start: 12-01-2023 End: 12-01-2023 ambulatory Vinnie Garza Other [facility] [employer] Other Start: 12-01-2023 Telephone encounter Vinnie Garza FP [facility] Start: 11-26-2023 End: 11-26-2023 ambulatory Vinnie Garza Other [facility] [employer] Other Start: 11-26-2023 Office outpatient vi sit 25 minutes Vinnie RAMON [facility] Start: 11-26-2023 Telephone encounter Vinnie SUAZO G [facility] Start: 11-26-2023 End: 11-26-2023 Patient encounter procedure [facility]- Start: 11-17-2023 Telephone encounter Alysha Gilbert RN [facility] Start: 11-05-2023 End: 11-05-2023 ambulatory VINNIE GARZA [facility] Start: 10-31-2023 Orders Only Alysha Gilbert RN [facility] Comment on above: Cerebrovascular acci dent (CVA) due to thrombosis of precerebral artery (CMS-HCC) (Primary Dx); Other cerebrovascular vasospasm and vasoconstriction Start: 10-28-2023 End: 10-30-2023 ambulatory [facility] Start: 10-28-2023 End: 10-30-2023 ambulatory [facility] Start: 10-28-2023 End: 10-30-2023 ambulatory HAMMAD Ocasio [facility] Start: 10-26-2023 End: 10-30-2023 Emergency department patient visit [facility] Start: 10-26-2023 End: 10-29-2023 Evaluation and management of inpatient [facility] Start: 05-09-[address] VINNIE Mcgraw ty:H1 [...] 12-29-2024 Adult BMI Screening Adult BMI Screen [facility] Start: 12-29-2024 Tobacco Screening Tobacco Screening [facility] Start: 12-11-2024 Adult BMI Screening Adult BMI Screen ing [facility] Start: 12-11-2024 Depression Screening Depression Scre ening [facility] Start: 12-11-2024 Tobacco Screening Tobacco Screening [facility] Start: 10-29-2024 Adult BMI Screening Adult BMI Screen ing [facility] Start: 10-26-2024 Tobacco Screening Tobacco Screening [facility] Start: 03-11-2024 End: 03-11-2024 Patient encounter procedure 03/11/2024 3:30 PM EDT Office Visit [facility] [address] [place] [phone] Alexis Rojas MD [address] [place] [address], [address] [place] [address] [facility] Start: 12-11-2023 End: 12-11-2023 Patient encounter procedure 12/11/2023 11:30 AM EST Office Visit [facility] [address] [place] [phone] Alexis Rojas MD [address] [place] [address], [address] [place] [address] [facility] Start: 12-04-2023 End: 12-04-2023 Patient encounter procedure 12/04/2023 9:00 AM EST Office Visit [facility] [address] [place] [address] [place] [address] Ally Larson MD [address] [place] [address] [facility] Start: 10-31-2023 End: 10-31-2024 Event Monitor (In Office) MELANY SB[employer] Work Phone: Comment on above: Expected: 10/31/2023 , Expires: 10/31/2024 Start: 09-01-2023 Influenza vaccination Influenza Vacc ine [facility] Start: 2018 Fall Risk Screening Fall Risk Screen ing [facility] Start: 05-02-2017 Urine screening for protein [facility]albumin [facility] Start: 2003 Administration of varicella zoster vaccine Zoster (Shingles) Vaccine (1 of 2) [facility] Start: 1972 DTaP,Tdap and Td Vaccines (1 - Tdap) DTaP,Tdap and Td Vaccines (1 - Tdap) [facility] Start: 1971 Adult BMI Follow Up Plan Adult BMI Follow Up Plan [facility] Start: 1971 Diabetic foot examination Diabetic Foot Exam [facility] Start: 1965 Depression Screening Depression Scre ening [facility] Start: 1953 Glaucoma screening Diabetic Op hthalmology Exam [facility] Start: 1953 Medicare Annual Well ness Visit Medicare Annual Wellness Visit [facility] Start: 1953 Tobacco Counseling Tobacco Counselin g [employer] End: 12-29-2024 Large Joint Injection/Arthrocentesis - PA Large Joint Injection/Arthrocentesi s - PA Procedures Routine Right knee pain, unspecified chronicity Arthritis of right knee 1 Occurrences starting 12/30/2023 until 12/29/2024 [employer] Work Phone: Comment on above: 1 Occurrences starti ng 12/30/2023 until 12/29/2024 End: 12-29-2024 Nicotine screen, urine Nicotine screen, urine Lab Routine Arthritis of right knee 1 Occurrences starting 12/30/2023 until 12/29/2024 [employer] Comment on above: 1 Occurrences starti ng 12/30/2023 until 12/29/2024 [facility] Immunizations Immunization Date Immunization Notes Care Provider Fortino rouse 07-08-2018 influenza virus vaccine, split virus (incl. purified surface antigen) Vinnie Garza Other [employer] Other 07-08-2018 influenza virus vaccine, unspecified formulation [facility] Payers Date Payer Category Payer Medicare [employer] MEDICARE A ETNA MEDICARE PLAN (PPO) [id number] 2021-Present [phone] [address] [place] [address] [id number] 2021 Medicare [id number] 1959 Self-pay 1953 Unknown [id number] 2.16.840.1.079627.3.579.2.593 1953 Unknown [id number] 2.16.840.1.538128.3.579.2.593 1953 Unknown [id number] 2.16.840.1.200691.3.579.2.1259 1953 Unknown [id number] 2.16.840.1.447901.3.579.2.1286 1953 Unknown [id number] 2.16.840.1.236056.3.579.2.1286 1953 Unknown [id number] 2.16.840.1.269197.3.579.2.1286 1953 Unknown [id number] 2.16.840.1.096963.3.579.2.1286 1953 Unknown [id number] 2.16.840.1.324414.3.579.2.1286 1953 Unknown [id number] 2.16.840.1.935089.3.579.2.1286 1953 Unknown [id number] 2.16.840.1.100136.3.579.2.1286 1953 Unknown [id number] 2.16.840.1.504882.3.579.2.1286 1953 Unknown [id number] 2.16.840.1.358101.3.579.2.1286 1953 Unknown [id number] 2.16.840.1.389477.3.579.2.1286 1953 Unknown [id number] 2.16.840.1.082315.3.579.2.1285 1953 Unknown [id number] 2.16.840.1.611049.3.579.2.1285 1953 Unknown [id number] 2.16.840.1.227658.3.579.2.1285 1953 Unknown [id number] 2.16.840.1.757376.3.579.2.1285 1953 Unknown [id number] 2.16.840.1.366160.3.579.2.1285 1953 Unknown [id number] 2.16.840.1.917756.3.579.2.1285 1953 Unknown [id number] 2.16.840.1.126680.3.579.2.1285 1953 Unknown [id number] 2.16.840.1.067472.3.579.2.1285 1953 Unknown [id number] 2.16.840.1.734423.3.579.2.1285 1953 Unknown [id number] 2.16.840.1.360659.3.579.2.1285 1953 Unknown [id number] 2.16.840.1.449146.3.579.2.1285 1953 Unknown [id number] 2.16.840.1.030391.3.579.2.1285 1953 Unknown [id number] 2.16.840.1.983388.3.579.2.1285 1953 Unknown [id number] 2.16.840.1.593169.3.579.2.1285 1953 Unknown [id number] 2.16.840.1.063280.3.579.2.1286 1953 Unknown [id number] 2.16.840.1.216035.3.579.2.1286 1953 Unknown [id number] 2.16.840.1.949114.3.579.2.1286 1953 Unknown [id number] 2.16.840.1.631066.3.579.2.128 1953 Unknown [id number] 2.16.840.1.903984.3.579.2.128 1953 Unknown [id number] 2.16.840.1.214716.3.579.2.1285 1953 Unknown [id number] 2.16.840.1.642846.3.579.2.128 1953 Unknown [id number] 2.16.840.1.121920.3.579.2.128 1953 Unknown [id number] 2.16.840.1.825462.3.579.2.128 1953 Unknown [id number] 2.16.840.1.540358.3.579.2.128 1953 Unknown [id number] 2.16.840.1.479778.3.579.2.128 1953 Unknown [id number] 2.16.840.1.232112.3.579.2.128 Medicare [id number] 2.16.840.1.504548.19 Unknown [id number] 2.16.840.1.160766.19 Social History Date Type Detail Facility Start: 10-26-2023 [facility] History of tobacco use Cigarette Smoker P [facility] Start: 10-26-2023 Tobacco use and exposure Smoke less tobacco non-user [facility] Start: 10-26-2023 End: 12-30-2023 Alcohol intake Ex-drinker (finding) [facility] Start: 12-07-2020 End: 10-26-2023 History of Social function [facility] [employer] [facility] Start: 12-07-2020 End: 10-26-2023 Tobacco use panel [facility] Housing Instability Unknown [facility] [employer] [facility] Start: 1955 Sex Assigned At Not on file P [facility] [employer] [facility] Start: 1955 Sex Assigned At Male F [facility] Goals Date Patient Goal Desired Activity /State Personal health goal Comment on above: Formatting of this n ote might be different from the original. Evaluation of progress towards goal: In progress: DC to home with home health, support from dtr and new 2-wheeled walker. Clinical Notes 11-17-2023 to 09-09-2024 Klaus Yeboah MD - 12/30/2023 10:15 AM Ronaldo Rojas MD - 12/11/2023 11:30 AM EST Note Date & Type Note Facility 09-09-2024 Note Cardiology Clinic No te Chief Complaint: New Patient HPI: Vashti Rivera is a 69 y.o. male who has a past medical history of Abnormal ECG, Arrhythmia, Hyperlipidemia, Hypertension, and Stroke (CMS/HCC). that is referred to Cardiology clinic for evaluation of palpitations. Patient reports symptoms of palpitations, which have been ongoing for months per patient report. He denies any additional cardiac complaints or concerns. No chest pain. No lower extremity edema, orthopnea, or PND. No additional complaints or concerns. Patient had testing performed by his PCP. Echo demonstrated severe septal hypertrophy, concerning for possible hypertrophic cardiomyopathy. Holter demonstrated one episode of NSVT at 7 beats. ROS 10 point ROS is performed and is negative unless otherwise specified in HPI Past Medical History He has a past medical history of Abnormal ECG, Arrhythmia, Hyperlipidemia, Hypertension, and Stroke (CMS/HCC). Surgical History He has a past surgical history that includes Knee surgery and Shoulder surgery (Right). Social History He reports that he has been smoking cigarettes. He has never used smokeless tobacco. He reports that he does not drink alcohol. No history on file for drug use. Family History Family History Problem Relation Name Age of Onset No Known Problems Mother No Known Problems Father Heart attack Paternal Grandmother Medications Current Outpatient Medications on File Prior to Visit Medication Sig Dispense Refill acetaminophen (Tylenol) 500 mg tablet Take 1,000 mg by mouth every 8 (eight) hours if needed. aspirin 81 mg EC tablet Take 81 mg by mouth in the morning. atorvastatin (Lipitor) 40 mg tablet Take 40 mg by mouth in the morning. gabapentin (Neurontin) 100 mg capsule Take 100 mg by mouth 3 times a day. hydrOXYzine HCL (Atarax) 25 mg tablet Take 25 mg by mouth 1 (one) time. Lantus Solostar U-100 Insulin 100 unit/mL (3 mL) injection pen ADMINISTER 15 UNITS UNDER THE SKIN AT BEDTIME Lantus U-100 Insulin 100 unit/mL injection vial Inject 15 Units under the skin in the morning. magnesium hydroxide (Milk of Magnesia) 400 mg/5 mL suspension Take 30 mL by mouth. melatonin 3 mg tablet Take 6 mg by mouth in the morning. pantoprazole (ProtoNix) 40 mg EC tablet sennosides-docusate sodium (Marilin-Colace) 8.6-50 mg tablet Take 1 tablet by mouth in the morning. tamsulosin (Flomax) 0.4 mg 24 hr capsule 0.4 mg in the morning. ticagrelor (Brilinta) 90 mg tablet Take 90 mg by mouth two times daily. traZODone (Desyrel) 50 mg tablet Take 25 mg by mouth in the morning. No current facility-administered medications on file prior to visit. Allergies Patient has no known allergies. Physical Exam VITAL SIGNS: BP 134/81 (BP Location: Right leg, Patient Position: Sitting) Pulse 81 Ht 1.778 m (5' 10 ) Wt 85.3 kg (188 lb) SpO2 94% BMI 26.98 kg/m??? Constitutional: Well developed, Well nourished, No acute distress, Non-toxic appearance. HENT: Normocephalic, Atraumatic, Bilateral external ears have normal appearance, Nose appears normal, nares are patent. Eyes: PERRLA, EOMI, Conjunctiva normal, No discharge. Neck: Normal range of motion, No tenderness, Supple, No stridor. No cervical lymphadenopathy noted. Cardiovascular: Normal heart rate, Normal rhythm, No murmurs, No rubs, No gallops. Thorax & Lungs: Normal breath sounds, No respiratory distress, No wheezing, No chest tenderness to palpation. Abdomen: Bowel sounds normal, Soft, Nontender, No masses, No pulsatile masses. Skin: Warm, Dry, No erythema, No rash. Back: No tenderness, No CVA tenderness. Extremities: Intact distal pulses, No edema, No tenderness, No cyanosis, No clubbing. Musculoskeletal: Grossly normal strength in extremities Neurologic: Alert & oriented x 3, no gross focal neurological deficits Psychiatric: Affect normal, Judgment normal, Mood normal. EKG results: No results found for this or any previous visit (from the past 4464 hour(s)). Echo results: No echocardiogram results found for the past 12 months Radiology: No image results found. Assessment/Plan: Vashti Rivera is a 69 y.o. male with Primary hypertension NSVT (nonsustained ventricular tachycardia) (CMS/HCC) Abnormal echocardiogram Cardiac Mri ordered Will uptitrate Toprol given HTN, possible HCM Patient declines ischemic eval at the present time. Will reconsider pending MRI [employer] medical management Aggressive risk factor modification Plan of care discussed with patient. All questions were answered. Patient voices understanding and is agreeable with current plan. Patient was educated on red flag symptoms. Strict return precautions were provided. Patient verbalizes understanding Follow-up in cardiology clinic in 3 months, or sooner as needed Thank you for allowing us to participate in the care of your patient. Please do not hesitate to contact cardiology with any questions (more content not included)... [facility] 12-30-2023 History of Present illness Narrative Images from the original note were not included. Vashti Rivera 1955 [id number] Last encounter with me: Visit date not [...] Medical History: Diagnosis Date Arthritis Cataract Diabetes ([facility]) Diabetes mellitus type 2, controlled ([facility]) Fractures Past Surgical History: Procedure Laterality Date [...] of the aforementioned history prepared by the [place] practice provider, and I personally performed the [...] hip xrays.. Klaus Yeboah MD Adult Reconstruction [facility] [address] [place] [address], [address] W: [phone] F: [phone] documented in this encounter [facility] 12-11-2023 History of Present illness Narrative [...] Medical History: Diagnosis Date Arthritis Cataract Diabetes ([facility]) Diabetes mellitus type 2, controlled ([facility]) Fractures Past Surgical History Past Surgical History: [...] hyperglycemia, with long-term current use of insulin ([facility]) Cerebrovascular accident (CVA) due to thrombosis ([facility]) Mixed hyperlipidemia Sequelae, post-stroke Gait instability Status [...] in 3 months. 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 Sincerely, Your Patient Services Outbound Team [facility]* Diagnosis Cerebrovascular accident (CVA) due to thrombosis of precerebral artery ([facility] Primary Other cerebrovascular vasospasm and vasoconstriction documented in this encounter [facility]* Diagnosis Sequelae, post-stroke- Primary Cerebrovascular accident (CVA) due to thrombosis of precerebral artery ([facility]) Type 2 diabetes mellitus with hyperglycemia, with long-term current use of insulin ([facility]) Transient alteration of awareness Mixed hyperlipidemia Blurred vision Other specified visual disturbances Gait instability Abnormality of gait documented in this encounter [facility]* Diagnosis Arthritis of right knee- Primary Right knee pain, unspecified chronicity Right knee pain, unspecified chronicity documented in this encounter [facility] System[facility]* Diagnosis Onset Date Resolution Status Cerebral atherosclerosis acu te Cigarette nicotine dependence without complication acute Hypercholesterolemia acute Primary hypertension acute Type 2 diabetes mellitus with hyperglycemia [facility] Work Phone: Evaluation note* Diagnosis Onset Date Resolution Status Cerebral atherosclerosis acu te Cigarette nicotine dependence without complication acute Hypercholesterolemia acute Primary hypertension acute Primary osteoarthritis of right knee acute Type 2 diabetes mellitus with hyperglycemia acute Cerebral atherosclerosis acu te Cigarette nicotine dependence without complication acute Hypercholesterolemia acute Primary hypertension acute Type 2 diabetes mellitus with hyperglycemia [facility] Work Phone: Evaluation note* Diagnosis Onset [...] acute Type 2 diabetes mellitus with hyperglycemia [facility] Work Phone: History general Narrative - Reported* Type Description Date Medical History Cerebral atherosclerosis Medical History Hypercholesterolemia Medical History Primary hypertension Medical History Cigarette nicotine dependence wi thout complication Surgical History Tonsillectomy Surgical History Right Shoulder Surgery Surgical History Left TKA 2010 Surgical History Right Knee Arthroscopy x2 Surgical History 2: cataracts Surgical History ORIF Right Wrist Hospitalization History see surgical history [facility] Other InstructionsNot on filedocumented in this encounter [facility] filedocument[facility] in this [facility] SystemInstructionsNot on filedocumented in this encounter [facility] SystemReason for visit NarrativeDiabetic education/XR results [facility] Other Summary Purpose Family History No Family [...] Event Monitor (In Office) Kong Gallegos APRN-CNP [address] [place] [address] [address] [place] [id number] Referral ID Status Reason Start Date Expiration Date V isits Requested Visits Authorized [id number] Pending Review 10/31/2023 10/30/2024 1 1 Specialty Diagnoses / Procedures Referred By Shanice wood Referred To Contact Rehabilitation Diagnoses Cerebrovascular accident (CVA) due to thrombosis of precerebral artery (CMS-HCC) Sequelae, post-stroke Gait instability Alexis Rojas MD [address] [place] [address], [address] [place] [address] Referral ID Status Reason Start Date Expiration Date Visits Requested Visits Authorized [id number] Pending Review Specialty Services Required 12/11/2023 12/10/2024 1 1 Specialty Diagnoses / Procedures Referred By Contac t Referred To Contact Rehabilitation Diagnoses Arthritis of right knee Klaus Yeboah MD [address] [place] [address] Referral ID Status Reason Start Date Expiration Date Visits Requested Visits Authorized [id number] Pending Review Specialty Services Required 12/30/2023 12/29/2024 1 1 Specialty Diagnoses / Procedures Referred By Contac t Referred To Contact Diagnoses Right knee pain, unspecified chronicity Arthritis of right knee Procedures Large Joint Injection/Arthrocentesis - Klaus Lou MD [address] [place] [address] [facility] [address] [place] [address] Referral ID Status Reason Start Date Expiration Date V isits Requested Visits Authorized [id number] Pending Review 12/30/2023 12/29/2024 1 1 Chief [...] and content) DATE CREATED AUTHOR 05/16/2022 [facility] DATE CREATED AUTHOR AUTHOR'S ORGANIZ ATION 02/05/2024 [facility] EPIC DATE CREATED AUTHOR AUTHOR'S ORGANIZ ATION 06/02/2024 [facility] DATE CREATED AUTHOR AUTHOR'S ORGANIZ ATION 06/12/2024 [facility] DATE CREATED AUTHOR AUTHOR'S ORGANIZ ATION 06/16/2024 [facility] DATE CREATED AUTHOR AUTHOR'S ORGANIZ ATION 09/20/2024 [facility] Care Teams (unrecognized sec tion and content) Fast Food Manager Relationship Specialty Start Date End Date Vinnie Garza DO [address] [place] [address] PCP - General Internal Medicine 10/26/23 Fast Food Manager Relationship Specialty Start Date End Date Vinnie Garza DO [address] [place] [address] PCP - General Internal Medicine 10/26/23 Fast Food Manager Relationship Specialty Start Date End Date Vinnie Garza DO [address] [place], [place] [id number] PCP - General Internal Medicine 10/26/23 Fast Food Manager Relationship Specialty Start Date End Date Vinnie Garza DO [address] [place] [address] PCP - General Internal Medicine 10/26/23 Team Status: Active Member Role Status Dates Vinnie Garza DO Primary Care Provider Active Team Status: Inactive Member Role Status Dates Vinnie Garza DO Attending Provider Active Sta rt: November 26, 2023 End: November 26, 2023 Team Status: Inactive Member Role Status Dates Vinnie Graza DO Primary Care Provide r, Attending Provider [...] BE BASED ON THE PRIMARY CLINICAL RECORDS. [facility]. provides no warranty or guarantee of the accuracy or completeness of information in this document.
--- NOTE | 2024-09-28 23:48 | ED.MALEGU1 ---
Documented by User: Cyndy Blair MD 09/29/24 23:10 HPI - Male Genitourinary General Chief complaint: Urogenital-Male Stated complaint: URINARY CATHETER ISSUES Time Seen by Provider: 09/28/24 23:23 Source: patient Mode of arrival: ambulance Limitations: no limitations History of Present Illness HPI Narrative: This 69-year-old male is brought to the emergency department from the [facility] care facility where he currently resides for evaluation of urinary retention and hematuria. 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 According to the penitentiary staff he has had this removed several times but requires it to be left in place at this time. The patient states that they change the Cyr out earlier tonight and it was painful for him. According to the penitentiary staff he started having urinary retention and when they irrigated it was bloody. Upon arrival his lower abdomen was distended. A Cyr catheter was placed by the nursing staff with return of a large volume of nakia blood. Patient denies any chest pain or shortness of breath. His lower abdominal discomfort resolved after the Cyr catheter was placed. It was noted that he had greater than 800 cc retained in his urinary bladder before the Cyr catheter was placed. He is on Brilinta and aspirin but otherwise does not appear to be on any blood thinners. Related Data Home Medications ?Medication ?Instructions ?Recorded ?Confirmed aspirin 81 mg tablet,delayed 81 mg PO .QD 03/31/24 09/29/24 release flash glucose scanning reader 03/31/24 09/29/24 (FreeStyle Kathie 2 [place]) flash glucose sensor (FreeStyle 03/31/24 09/29/24 Kathie 2 Sensor kit) insulin glargine 100 unit/mL (3 15 unit subcut .QHS 03/31/24 09/29/24 mL) subcutaneous pen (Lantus Solostar U-100 Insulin) insulin syringe-needle U-100 1 mL 03/31/24 09/29/24 30 gauge x 7/16 atorvastatin 40 mg tablet 40 mg PO DAILY 06/05/24 09/29/24 gabapentin 100 mg capsule 100 mg PO TID 06/05/24 09/29/24 melatonin 3 mg capsule 6 mg PO DAILY 06/05/24 09/29/24 pantoprazole 40 mg tablet,delayed 40 mg PO .q24 06/05/24 09/29/24 release (Protonix) tamsulosin 0.4 mg capsule 0.4 mg PO .qhs 06/05/24 09/29/24 ticagrelor 90 mg tablet (Brilinta) 90 mg PO BID 06/05/24 09/29/24 trazodone 50 mg tablet 25 mg PO DAILY 06/05/24 09/29/24 insulin lispro 100 unit/mL 1 sliding scale dose subcut ACHS 09/29/24 09/29/24 subcutaneous pen (Admelog SoloStar U-100 Insulin lispro) magnesium hydroxide 400 mg/5 mL 5 ml PO .qhs PRN constipation 09/29/24 09/29/24 oral suspension (Dulcolax (magnesium hydroxide)) magnesium oxide 400 mg PO DAILY 09/29/24 09/29/24 metoprolol succinate 50 mg 50 mg PO QDAY 09/29/24 09/29/24 tablet,extended release 24 hr polyethylene glycol 3350 17 17 g PO DAILY 09/29/24 09/29/24 gram/dose oral powder (ClearLax) sennosides 8.6 mg tablet (Senna 17.2 mg PO DAILY 09/29/24 09/29/24 Lax) sennosides 8.6 mg-docusate sodium 1 tab-cap PO DAILY 09/29/24 09/29/24 50 mg tablet (Senna with Docusate Sodium) Allergies Allergy/AdvReac Type Severity Reaction Status Date / Time No Known Drug Allergies Allergy Verified 09/28/24 23:27 Review of Systems ROS Status of ROS 10 or more systems reviewed and unremarkable except as noted in history and below [facility] Medical History (Updated 09/29/24 @ 15:19 by Shaikh Zainab MD) Chronic indwelling Cyr catheter ?Z97.8 - Presence of other specified devices (ICD-10) H/O: stroke with residual effects ?I69.30 - Unspecified sequelae of cerebral infarction (ICD-10) CKD (chronic kidney disease) ?N18.9 - Chronic kidney disease, unspecified (ICD-10) CVA (cerebral vascular accident) ?I63.9 - Cerebral infarction, unspecified (ICD-10) Anxiety and depression ?F41.9 - Anxiety disorder, unspecified (ICD-10) ?F32.A - Depression, unspecified (ICD-10) Benign prostatic hyperplasia with lower urinary tract symptoms ?N40.1 - Benign prostatic hyperplasia with lower urinary tract symptoms (ICD-10) Hemiplegia affecting left nondominant side ?G81.94 - Hemiplegia, unspecified affecting left nondominant side (ICD-10) Hematoma ?T14.8XXA - Other injury of unspecified body region, initial encounter (ICD-10) Bursitis ?M71.9 - Bursopathy, unspecified (ICD-10) History of CVA (cerebrovascular accident) ?Z86.73 - Personal history of transient ischemic attack (TIA), and cerebral infarction without residual deficits (ICD-10) DM2 (diabetes mellitus, type 2) ?E11.9 - Type 2 diabetes mellitus without complications (ICD-10) Osteoarthritis ?M19.90 - Unspecified osteoarthritis, unspecified site (ICD-10) HTN (hypertension) ?I10 - Essential (primary) hypertension (ICD-10) Hyperlipidemia ?E78.5 - Hyperlipidemia, unspecified (ICD-10) Surgical History (Updated 03/31/24 @ 17:36 by Keli Gastelum RN) H/O repair of right rotator cuff ?Z98.890 - Other specified postprocedural states (ICD-10) History of total left knee replacement ?Z96.652 - Presence of left artificial knee joint (ICD-10) Family History (Updated 03/31/24 @ 17:37 by Keli Gastelum RN) Sister Family history of cancer Mother Family history of cancer Grandmother Family history of stroke Social History (Updated 09/29/24 @ 15:22 by Shaikh Zainab MD) Within the past year, how often did you have a drink containing alcohol: never Score interpretation: A score less than 4 is consistent with normal alcohol consumption. Smoking status: Former smoker Non-prescribed substance use: denies use Highest level of school completed/degree received: high school graduate Little interest or pleasure in doing things: not at all Feeling down, depressed, or hopeless: not at all Exam Narrative Exam Narrative: Vital signs and Nursing Notes reviewed: Patient is afebrile with a normal pulse, normal blood pressure, he is not hypoxic with pulse ox of 97% on room air General: Awake, alert, oriented, no acute distress, lying comfortably on the stretcher HEENT: Normocephalic atraumatic, mucous membranes are moist and pink, eyes are clear, normal conjunctiva, vision is grossly intact Neck: Supple, no JVD Chest: Lungs are clear to auscultation with good air entry, there is no wheezing rhonchi or rales appreciated no accessory muscle use, patient is speaking in complete sentences-no chest wall tenderness to palpation CVS: Regular rate and rhythm S1-S2, no murmurs rubs or gallops, pulses are brisk and equal bilaterally ABD: Soft, nondistended, nontender, no rebound guarding or rigidity, bowel sounds are normal, no pulsatile masses appreciated, no tenderness over the urinary bladder after the Cyr catheter was placed. Cyr catheter was placed by the nursing staff with a large volume of dark blood returned with clots noted. Extremities: Contracture of the left hand with decreased use of the left arm and leg status post CVA Skin: Normal in appearance without rash,pallor, petechiae or purpura Neuro: No focal deficits, contracture of the left hand status post CVA, speech is clear, cognition is intact, no focal neurologic deficits noted Constitutional Vital Signs, click to edit/add: Last Vital Signs Temp 97.3 F L 09/29/24 20:01 Pulse 78 09/29/24 21:57 Resp 17 09/29/24 20:01 BP 120/71 09/29/24 20:01 Pulse Ox 93 L 09/29/24 20:09 O2 Del Method Room Air 09/29/24 20:09 Course Vital Signs Vital signs: Vital Signs Temperature 97.9 F 09/28/24 23:24 Pulse Rate 73 09/28/24 23:24 Respiratory Rate 18 09/28/24 23:24 Blood Pressure 138/76 09/28/24 23:24 Pulse Oximetry 97 09/28/24 23:24 Oxygen Delivery Method Room Air 09/28/24 23:24 Temperature 97.3 F L 09/29/24 20:01 Pulse Rate 78 09/29/24 21:57 Respiratory Rate 17 09/29/24 20:01 Blood Pressure 120/71 09/29/24 20:01 Pulse Oximetry 93 L 09/29/24 20:09 Oxygen Delivery Method Room Air 09/29/24 20:09 MDM - Male Genitourinary MDM Narrative Medical decision making narrative: The [address] [place] [address] CT Scan Report Signed Patient: VASHTI MASSEY MR#: [id number] : 1955 Acct:[id number] Age/Sex: 69 / M ADM Date: 09/28/24 Loc: ER Attending Dr: Ordering Physician: Cyndy Blair Date of Service: 09/28/24 Procedure(s): CT abdomen pelvis wo con Accession Number(s): [id number] cc: Vinnie Garza D.O.~ The [place] [id number] Patient Name: VASHTI MASSEY MRN: [id number] date: 1955 Sex: M Assigned Patient Location: ER Current Patient Location: ER Accession/Order Number: [id number] Exam Date: 09/28/2024 23:59 Report Date: 09/29/2024 01:17 At the request of: CYNDY BLAIR Procedure: CT abdomen pelvis wo con CT ABDOMEN PELVIS WITHOUT CONTRAST HISTORY: Traumatic Cyr insertion with lower abdominal pain. COMPARISON: CT abdomen and pelvis with and without 05/02/2016. TECHNIQUE: Thin section axial CT images were obtained from the lung bases to the pubis symphysis. This CT exam was performed using one or more of the following dose reduction techniques: Automated exposure control, adjustment of the mA and/or kV according to patient size, or use of iterative reconstruction technique. Thin section coronal and sagittal images were reconstructed from the axial data set. All images were reviewed and interpreted. CONTRAST: None. FINDINGS: Assessment of solid organs is limited without the benefit of IV contrast. LUNG BASES: The lung bases are clear. GE JUNCTION AND STOMACH: Negative. No hiatal hernia. LIVER: Negative. GALLBLADDER AND BILIARY TREE: Gallbladder is distended. There is suggestion may be some small gravel-like calcified gallstones in dependent portion. No pericholecystic fluid or overt wall thickening. SPLEEN: Negative. PANCREAS: Negative. ADRENALS: Negative. RIGHT KIDNEY AND URETER: No hydronephrosis. No retained calculus in right kidney or along the course of the right ureter. Stable cyst posterior lower pole right kidney which was seen on 05/02/2016 and similar measuring approximately 1 cm. Otherwise negative. LEFT KIDNEY AND URETER: There is redemonstration of large or complicated exophytic cyst arising from upper pole left kidney. This was present on study from 05/02/2016. There remains linear septal calcifications within the cyst. Cyst extends 9.3 cm x 6.5 cm on axial scans. Previously this measured at least 9.1 cm by at least 7.5 cm by my estimation. Slight change in contour but otherwise grossly stable. Additional more simple exophytic cyst along the posterior midpole left kidney measuring 1.8 cm . No left hydronephrosis or retained intrarenal or ureteral calculus. SMALL BOWEL: Negative. LARGE BOWEL: Diffuse colonic diverticulosis with moderate stool retention. No colitis. APPENDIX: No active disease with normal appendix. AORTA: Normal caliber aorta and iliac arteries. Scattered atherosclerotic calcific plaque throughout the wall of the aorta. IVC: Negative. LYMPH NODES: There is no lymphadenopathy. BLADDER: Cyr catheter is present with balloon inflated within the lumen of the urinary bladder; however, there is extensive hyperdense fluids throughout the bladder lumen suggesting hemorrhage due to traumatic insertion. Correlate with the urinalysis. Follow-up to ensure resolution. No signs of bladder perforation. No free air around bladder. Prostate is mildly enlarged. This may have contributed to difficulty placing Cyr. BONES: No acute findings or destructive process. 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 COMMENTS: No ascites or free air or loculated fluid. CT/CT abdomen pelvis wo con IMPRESSION: 1. Satisfactory place Cyr catheter and balloon within the lumen of urinary bladder; however, there is extensive hyperdense fluid throughout the bladder lumen consistent with intraluminal hemorrhage. Follow-up to resolution. No signs of bladder rupture otherwise. 2. Redemonstration of complicated cystic lesion in the upper pole left kidney. Given the mixer operator vacuum pan salt technique differences in measurements, this does not appear to change significantly since 05/02/2016. Therefore, statistically a Bosniak 2 cyst. There are other scattered simple cysts in the left kidney. 3. Stable simple lower pole right renal cyst. 4. Nonspecific gallbladder distention with suggestion of small dependent calcified gallstones. 5. Fecal retention/constipation. This 69-year-old male who has an indwelling Cyr catheter after he had a stroke several years ago and has been unable to urinate independently without the Cyr catheter was transferred from the extended care facility for evaluation of urinary retention and hematuria. According to the penitentiary staff his Cyr catheter was replaced earlier in the day. The patient recalls that it was painful when the Cyr catheter was placed and he does not think he has had any urine output since that time. The Cyr catheter was removed and replaced by the nursing staff with a large volume of dark blood and clots removed initially. Continuous bladder irrigation was then instituted. Routine labs were ordered. He has a normal white count and hemoglobin. Electrolytes are normal. CT scan of the abdomen pelvis shows a complicated cystic lesion in the upper pole of the left kidney well as extensive hyperdense of fluid throughout the bladder lumen consistent with intraluminal hemorrhage. The patient's urine cleared with the HPI but then with positional changes started draining dark blood again. I irrigated the Cyr catheter vigorously multiple times and was able to dislodge several large clots. On reevaluation the CBI is running clearly., I irrigated him again with return of pink urine and irrigant but no clots. He was then connected once again to CBI and is once again the CBI is clear. Patient was slotted for discharge but prior to being discharged his urine started becoming grossly bloody again. Call was placed to Dr. Rizvi, urology on-call. Lab Data Attestation: I reviewed the patient's lab results. Labs: Lab Results 09/29/24 09/29/24 Range/Units 00:03 09:05 WBC 6.7 (4.0-11.0) 10^3/uL RBC 4.32 L (4.70-6.10) 10^6/uL Hgb 12.0 L 12.0 L (14.0-18.0) g/dL Hct 36.2 L 36.6 L (42.0-54.0) % MCV 83.8 (80.0-94.0) fL MCH 27.8 (25.9-34.0) pg MCHC 33.1 (29.9-35.2) g/dL RDW 16.1 H (11.0-15.0) % Plt Count 245 (150-450) 10^3/uL MPV 8.9 L (9.5-13.5) fL Neut % (Auto) 74.2 (43.0-75.0) % Lymph % (Auto) 17.2 L (20.5-60.0) % [place] % (Auto) 5.5 (1.7-12.0) % Eos % (Auto) 2.2 (0.9-7.0) % Baso % (Auto) 0.6 (0.2-2.0) % Neut # (Auto) 5.0 (1.4-6.5) 10^3/uL Lymph # (Auto) 1.2 (1.2-3.8) 10^3/uL [place] # (Auto) 0.4 (0.3-0.8) 10^3/uL Eos # (Auto) 0.2 (0.0-0.7) 10^3/uL Baso # (Auto) 0.0 (0.0-0.1) 10^3/uL Abs Immat Gran (auto) 0.02 (0.00-0.03) 10^3/uL Imm/Tot Granulo (auto) 0.3 (0.0-0.5) % PT 11.5 (9.0-11.6) sec INR 1.09 Sodium 138 (136-145) mmol/L Potassium 4.3 (3.5-5.1) mmol/L Chloride 101 (98-107) mmol/L Carbon Dioxide 29.6 (21.0-32.0) mmol/L Anion Gap 11.7 BUN 23.0 H (7.0-18.0) mg/dL Creatinine 1.01 (0.70-1.30) mg/dL Est GFR ( Amer) >60 (>=60 mL/min/1.73m^2) Est GFR (Non-Af Amer) >60 (>=60 mL/min/1.73m^2) BUN/Creatinine Ratio 22.8 Glucose 160 H (74-106) mg/dL Calcium 9.6 (8.5-10.1) mg/dL Total Bilirubin 0.7 (0.2-1.0) mg/dL AST 9 L (15-37) U/L ALT 18 (16-63) U/L Alkaline Phosphatase 74 (46-116) U/L Total Protein 6.7 (6.4-8.2) g/dL Albumin 3.6 (3.4-5.0) g/dL Globulin 3.1 g/dL Albumin/Globulin Ratio 1.2 Blood Type A Positive Antibody Screen Negative Imaging Data CT scan - abdomen: Radiologist's impression: ITS Impressions Abdomen/Pelvis CT 09/28/24 23:46 [address]: 1[address] Cyr catheter and balloon within the lumen of urinary bladder; however, there is extensive hyperdense fluid throughout the bladder lumen consistent with intraluminal hemorrhage. Follow-up to resolution. No signs of bladder rupture otherwise. 2. Redemonstration of complicated cystic lesion in the upper pole left kidney. Given the mixer operator vacuum pan salt technique differences in measurements, this does not appear to change significantly since 05/02/2016. Therefore, statistically a Bosniak 2 cyst. There are other scattered simple cysts in the left kidney. 3. Stable simple lower pole right renal cyst. 4. Nonspecific gallbladder distention with suggestion of small dependent calcified gallstones. 5. Fecal retention/constipation. Electronically authenticated by: EFRAÍN BERNAL Date: 09/29/2024 01:17 Discharge Plan Discharge Chief Complaint: Urogenital-Male Clinical Impression: Hematuria, Complication, blocked Cyr catheter Patient Disposition: Admitted as Observation Time of Disposition Decision: 11:54 Condition: Fair Discharge Date/Time: 09/29/24 12:35 Documented by User: Debbie Noel DO 09/29/24 12:01 HPI - Male Genitourinary General Chief complaint: Urogenital-Male Stated complaint: URINARY CATHETER ISSUES Time Seen by Provider: 09/28/24 23:23 Related Data Home Medications ?Medication ?Instructions ?Recorded ?Confirmed aspirin 81 mg tablet,delayed 81 mg PO .QD 03/31/24 09/29/24 release flash glucose scanning reader 03/31/24 09/29/24 (FreeStyle Kathie 2 [place]) flash glucose sensor (FreeStyle 03/31/24 09/29/24 Kathie 2 Sensor kit) insulin glargine 100 unit/mL (3 15 unit subcut .QHS 03/31/24 09/29/24 mL) subcutaneous pen (Lantus Solostar U-100 Insulin) insulin syringe-needle U-100 1 mL 03/31/24 09/29/24 30 gauge x 7/16 atorvastatin 40 mg tablet 40 mg PO DAILY 06/05/24 09/29/24 gabapentin 100 mg capsule 100 mg PO TID 06/05/24 09/29/24 melatonin 3 mg capsule 6 mg PO DAILY 06/05/24 09/29/24 pantoprazole 40 mg tablet,delayed 40 mg PO .q24 06/05/24 09/29/24 release (Protonix) tamsulosin 0.4 mg capsule 0.4 mg PO .qhs 06/05/24 09/29/24 ticagrelor 90 mg tablet (Brilinta) 90 mg PO BID 06/05/24 09/29/24 trazodone 50 mg tablet 25 mg PO DAILY 06/05/24 09/29/24 insulin lispro 100 unit/mL 1 sliding scale dose subcut ACHS 09/29/24 09/29/24 subcutaneous pen (Admelog SoloStar U-100 Insulin lispro) magnesium hydroxide 400 mg/5 mL 5 ml PO .qhs PRN constipation 09/29/24 09/29/24 oral suspension (Dulcolax (magnesium hydroxide)) magnesium oxide 400 mg PO DAILY 09/29/24 09/29/24 metoprolol succinate 50 mg 50 mg PO QDAY 09/29/24 09/29/24 tablet,extended release 24 hr polyethylene glycol 3350 17 17 g PO DAILY 09/29/24 09/29/24 gram/dose oral powder (ClearLax) sennosides 8.6 mg tablet (Senna 17.2 mg PO DAILY 09/29/24 09/29/24 Lax) sennosides 8.6 mg-docusate sodium 1 tab-cap PO DAILY 09/29/24 09/29/24 50 mg tablet (Senna with Docusate Sodium) Allergies Allergy/AdvReac Type Severity Reaction Status Date / Time No Known Drug Allergies Allergy Verified 09/28/24 23:[address] [facility] Medical History (Updated 09/29/24 @ 15:19 by Shaikh Zainab MD) Chronic indwelling Cyr catheter ?Z97.8 - Presence of other specified devices (ICD-10) H/O: stroke with residual effects ?I69.30 - Unspecified sequelae of cerebral infarction (ICD-10) CKD (chronic kidney disease) ?N18.9 - Chronic kidney disease, unspecified (ICD-10) CVA (cerebral vascular accident) ?I63.9 - Cerebral infarction, unspecified (ICD-10) Anxiety and depression ?F41.9 - Anxiety disorder, unspecified (ICD-10) ?F32.A - Depression, unspecified (ICD-10) Benign prostatic hyperplasia with lower urinary tract symptoms ?N40.1 - Benign prostatic hyperplasia with lower urinary tract symptoms (ICD-10) Hemiplegia affecting left nondominant side ?G81.94 - Hemiplegia, unspecified affecting left nondominant side (ICD-10) Hematoma ?T14.8XXA - Other injury of unspecified body region, initial encounter (ICD-10) Bursitis ?M71.9 - Bursopathy, unspecified (ICD-10) History of CVA (cerebrovascular accident) ?Z86.73 - Personal history of transient ischemic attack (TIA), and cerebral infarction without residual deficits (ICD-10) DM2 (diabetes mellitus, type 2) ?E11.9 - Type 2 diabetes mellitus without complications (ICD-10) Osteoarthritis ?M19.90 - Unspecified osteoarthritis, unspecified site (ICD-10) HTN (hypertension) ?I10 - Essential (primary) hypertension (ICD-10) Hyperlipidemia ?E78.5 - Hyperlipidemia, unspecified (ICD-10) Surgical History (Updated 03/31/24 @ 17:36 by Keli Gastelum RN) H/O repair of right rotator cuff ?Z98.890 - Other specified postprocedural states (ICD-10) History of total left knee replacement ?Z96.652 - Presence of left artificial knee joint (ICD-10) Family History (Updated 03/31/24 @ 17:37 by Keli Gastelum RN) Sister Family history of cancer Mother Family history of cancer Grandmother Family history of stroke Social History (Updated 09/29/24 @ 15:22 by Shaikh Zainab MD) Within the past year, how often did you have a drink containing alcohol: never Score interpretation: A score less than 4 is consistent with normal alcohol consumption. Smoking status: Former smoker Non-prescribed substance use: denies use Highest level of school completed/degree received: high school graduate Little interest or pleasure in doing things: not at all Feeling down, depressed, or hopeless: not at all Exam Constitutional Vital Signs, click to edit/add: Last Vital Signs Temp 97.3 F L 09/29/24 20:01 Pulse 78 09/29/24 21:57 Resp 17 09/29/24 20:01 BP 120/71 09/29/24 20:01 Pulse Ox 93 L 09/29/24 20:09 O2 Del Method Room Air 09/29/24 20:09 Course Vital Signs Vital signs: Vital Signs Temperature 97.9 F 09/28/24 23:24 Pulse Rate 73 09/28/24 23:24 Respiratory Rate 18 09/28/24 23:24 Blood Pressure 138/76 09/28/24 23:24 Pulse Oximetry 97 09/28/24 23:24 Oxygen Delivery Method Room Air 09/28/24 23:24 Temperature 97.3 F L 09/29/24 20:01 Pulse Rate 78 09/29/24 21:57 Respiratory Rate 17 09/29/24 20:01 Blood Pressure 120/71 09/29/24 20:01 Pulse Oximetry 93 L 09/29/24 20:09 Oxygen Delivery Method Room Air 09/29/24 20:09 MDM - Male Genitourinary MDM Narrative Medical decision making narrative: [place] [address] CT Scan Report Signed Patient: VASHTI MASSEY MR#: [id number] : 1955 Acct:[id number] Age/Sex: 69 / M ADM Date: 09/28/24 Loc: ER Attending Dr: Ordering Physician: Cyndy Blair Date of Service: 09/28/24 Procedure(s): CT abdomen pelvis wo con Accession Number(s): [id number] cc: Vinnie Garza D.O.~ The [address] [address] Patient Name: VASHTI MASSEY MRN: [id number] date: 1955 Sex: M Assigned Patient Location: ER Current Patient Location: ER Accession/Order Number: [id number] Exam Date: 09/28/2024 23:59 Report Date: 09/29/2024 01:17 At the request of: CYNDY MARKER Procedure: CT abdomen pelvis wo con CT ABDOMEN PELVIS WITHOUT CONTRAST HISTORY: Traumatic Cyr insertion with lower abdominal pain. COMPARISON: CT abdomen and pelvis with and without 05/02/2016. TECHNIQUE: Thin section axial CT images were obtained from the lung bases to the pubis symphysis. This CT exam was performed using one or more of the following dose reduction techniques: Automated exposure control, adjustment of the mA and/or kV according to patient size, or use of iterative reconstruction technique. Thin section coronal and sagittal images were reconstructed from the axial data set. All images were reviewed and interpreted. CONTRAST: None. FINDINGS: Assessment of solid organs is limited without the benefit of IV contrast. LUNG BASES: The lung bases are clear. GE JUNCTION AND STOMACH: Negative. No hiatal hernia. LIVER: Negative. GALLBLADDER AND BILIARY TREE: Gallbladder is distended. There is suggestion may be some small gravel-like calcified gallstones in dependent portion. No pericholecystic fluid or overt wall thickening. SPLEEN: Negative. PANCREAS: Negative. ADRENALS: Negative. RIGHT KIDNEY AND URETER: No hydronephrosis. No retained calculus in right kidney or along the course of the right ureter. Stable cyst posterior lower pole right kidney which was seen on 05/02/2016 and similar measuring approximately 1 cm. Otherwise negative. LEFT KIDNEY AND URETER: There is redemonstration of large or complicated exophytic cyst arising from upper pole left kidney. This was present on study from 05/02/2016. There remains linear septal calcifications within the cyst. Cyst extends 9.3 cm x 6.5 cm on axial scans. Previously this measured at least 9.1 cm by at least 7.5 cm by my estimation. Slight change in contour but otherwise grossly stable. Additional more simple exophytic cyst along the posterior midpole left kidney measuring 1.8 cm . No left hydronephrosis or retained intrarenal or ureteral calculus. SMALL BOWEL: Negative. LARGE BOWEL: Diffuse colonic diverticulosis with moderate stool retention. No colitis. APPENDIX: No active disease with normal appendix. AORTA: Normal caliber aorta and iliac arteries. Scattered atherosclerotic calcific plaque throughout the wall of the aorta. IVC: Negative. LYMPH NODES: There is no lymphadenopathy. BLADDER: Cyr catheter is present with balloon inflated within the lumen of the urinary bladder; however, there is extensive hyperdense fluids throughout the bladder lumen suggesting hemorrhage due to traumatic insertion. Correlate with the urinalysis. Follow-up to ensure resolution. No signs of bladder perforation. No free air around bladder. Prostate is mildly enlarged. This may have contributed to difficulty placing Cyr. BONES: No acute findings or destructive process. 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 COMMENTS: No ascites or free air or loculated fluid. CT/CT abdomen pelvis wo con IMPRESSION: 1. Satisfactory place Cyr catheter and balloon within the lumen of urinary bladder; however, there is extensive hyperdense fluid throughout the bladder lumen consistent with intraluminal hemorrhage. Follow-up to resolution. No signs of bladder rupture otherwise. 2. Redemonstration of complicated cystic lesion in the upper pole left kidney. Given the mixer operator vacuum pan salt technique differences in measurements, this does not appear to change significantly since 05/02/2016. Therefore, statistically a Bosniak 2 cyst. There are other scattered simple cysts in the left kidney. 3. Stable simple lower pole right renal cyst. 4. Nonspecific gallbladder distention with suggestion of small dependent calcified gallstones. 5. Fecal retention/constipation. This 69-year-old male who has an indwelling Cyr catheter after he had a stroke several years ago and has been unable to urinate independently without the Cyr catheter was transferred from the extended care facility for evaluation of urinary retention and hematuria. According to the penitentiary staff his Cyr catheter was replaced earlier in the day. The patient recalls that it was painful when the Cyr catheter was placed and he does not think he has had any urine output since that time. The Cyr catheter was removed and replaced by the nursing staff with a large volume of dark blood and clots removed initially. Continuous bladder irrigation was then instituted. Routine labs were ordered. He has a normal white count and hemoglobin. Electrolytes are normal. CT scan of the abdomen pelvis shows a complicated cystic lesion in the upper pole of the left kidney well as extensive hyperdense of fluid throughout the bladder lumen consistent with intraluminal hemorrhage. The patient's urine cleared with the HPI but then with positional changes started draining dark blood again. I irrigated the Cyr catheter vigorously multiple times and was able to dislodge several large clots. On reevaluation the CBI is running clearly., I irrigated him again with return of pink urine and irrigant but no clots. He was then connected once again to CBI and is once again the CBI is clear. Patient was slotted for discharge but prior to being discharged his urine started becoming grossly bloody again. Call was placed to Dr. Rizvi, urology on-call. Dr. Noel addending the note. After Dr. Blair spoke to Dr. Rizvi, he said to place a larger Cyr catheter 24 Turkish. A larger Cyr catheter was changed over and placed by nurse without any difficulty. Dr. Rizvi then said manually irrigate as much as possible to clear the clots. We manually irrigated multiple times vigorously. Patient had lots of clots coming out. He was originally in pain because the Cyr kept getting obstructed but after manually irrigating between myself and the nurses, we were able to clear the Cyr. We put him on CBI after that and his urine was turning more pinkish and the clots had improved. After another bag through CBI we decided to clamp the patient to trial him off CBI and see if the bleeding had stopped. He was only clamped for about 20 minutes when there was nakia blood in the Cyr catheter so we unclamped him and manually irrigated again and multiple thick clots were coming out already again. The patient was down here for over 12 hours and he had had 8 bags through CBI along with multiple rounds of manual irrigation and still was bleeding and passing large clots. At this time I called Dr. Rizvi back again and explained the situation. He agrees with admission to the hospital. He states the patient will need manual irrigation every hour for the next 6 hours along with the CBI continuing. After 6 hours of this, he is to be contacted again and updated on how the patient is doing. He also wants the patient started on antibiotics. Levaquin was ordered from ED. I spoke to Dr. Kumari who will admit the patient and all of this information was also relayed to Dr. Kumari. The patient is comfortable with care plan for admission. Differential Diagnosis Differential diagnosis: Likely urinary tract infection, acute retention of urine and other (Hematuria, catheter obstruction) Medical Records Attestation: I reviewed the patient's medical records. Lab Data Attestation: I reviewed the patient's lab results. Labs: Lab Results 09/29/24 09/29/24 Range/Units 00:03 09:05 WBC 6.7 (4.0-11.0) 10^3/uL RBC 4.32 L (4.70-6.10) 10^6/uL Hgb 12.0 L 12.0 L (14.0-18.0) g/dL Hct 36.2 L 36.6 L (42.0-54.0) % MCV 83.8 (80.0-94.0) fL MCH 27.8 (25.9-34.0) pg MCHC 33.1 (29.9-35.2) g/dL RDW 16.1 H (11.0-15.0) % Plt Count 245 (150-450) 10^3/uL MPV 8.9 L (9.5-13.5) fL Neut % (Auto) 74.2 (43.0-75.0) % Lymph % (Auto) 17.2 L (20.5-60.0) % [place] % (Auto) 5.5 (1.7-12.0) % Eos % (Auto) 2.2 (0.9-7.0) % Baso % (Auto) 0.6 (0.2-2.0) % Neut # (Auto) 5.0 (1.4-6.5) 10^3/uL Lymph # (Auto) 1.2 (1.2-3.8) 10^3/uL [place] # (Auto) 0.4 (0.3-0.8) 10^3/uL Eos # (Auto) 0.2 (0.0-0.7) 10^3/uL Baso # (Auto) 0.0 (0.0-0.1) 10^3/uL Abs Immat Gran (auto) 0.02 (0.00-0.03) 10^3/uL Imm/Tot Granulo (auto) 0.3 (0.0-0.5) % PT 11.5 (9.0-11.6) sec INR 1.09 Sodium 138 (136-145) mmol/L Potassium 4.3 (3.5-5.1) mmol/L Chloride 101 (98-107) mmol/L Carbon Dioxide 29.6 (21.0-32.0) mmol/L Anion Gap 11.7 BUN 23.0 H (7.0-18.0) mg/dL Creatinine 1.01 (0.70-1.30) mg/dL Est GFR ( Amer) >60 (>=60 mL/min/1.73m^2) Est GFR (Non-Af Amer) >60 (>=60 mL/min/1.73m^2) BUN/Creatinine Ratio 22.8 Glucose 160 H (74-106) mg/dL Calcium 9.6 (8.5-10.1) mg/dL Total Bilirubin 0.7 (0.2-1.0) mg/dL AST 9 L (15-37) U/L ALT 18 (16-63) U/L Alkaline Phosphatase 74 (46-116) U/L Total Protein 6.7 (6.4-8.2) g/dL Albumin 3.6 (3.4-5.0) g/dL Globulin 3.1 g/dL Albumin/Globulin Ratio 1.2 Blood Type A Positive Antibody Screen Negative Imaging Data CT scan - abdomen: Radiologist's impression: ITS Impressions Abdomen/Pelvis CT 09/28/24 23:46 IMPRESSION: 1[address] Satisf[address] Cyr catheter and balloon within the lumen of urinary bladder; however, there is extensive hyperdense fluid throughout the bladder lumen consistent with intraluminal hemorrhage. Follow-up to resolution. No signs of bladder rupture otherwise. 2. Redemonstration of complicated cystic lesion in the upper pole left kidney. Given the mixer operator vacuum pan salt technique differences in measurements, this does not appear to change significantly since 05/02/2016. Therefore, statistically a Bosniak 2 cyst. There are other scattered simple cysts in the left kidney. 3. Stable simple lower pole right renal cyst. 4. Nonspecific gallbladder distention with suggestion of small dependent calcified gallstones. 5. Fecal retention/constipation. Electronically authenticated by: EFRAÍN BERNAL Date: 09/29/2024 01:17 Critical Care Time Critical Care Time Critical Care Time: Yes Total Critical Care Time: 120 Attestation: Constant manual irrigation of Cyr catheter pain control, bleeding Discharge Plan Discharge Chief Complaint: Urogenital-Male Clinical Impression: Hematuria, Complication, blocked Cyr catheter Patient Disposition: Admitted as Observation Time of Disposition Decision: 11:54 Condition: Fair Discharge Date/Time: 09/29/24 12:35
[2024-09-28] MEDS: SODIUM CHLORIDE IRRIG SOLUTION 3,000 ML 3000 ML IRR (23:53)
[2024-09-29] VITALS (39 sets, daily range): BP systolic 102–159; BP diastolic 53–86; PULSE 70–102; TEMP 36.3–37.3; O2SAT 90–99; BMI 28.2
[2024-09-29 00:14] LABS: Basophils Percent Auto 0.6 % (0.2-2.0); Eosinophils Absolute Auto 0.2 10^3/uL (0.0-0.7); Eosinophils Percent Auto 2.2 % (0.9-7.0); Hematocrit 36.2 % (42.0-54.0); Immature Granulocytes Abs Auto 0.02 10^3/uL (0.00-0.03); Immature Granulocytes Pct Auto 0.3 % (0.0-0.5); Lymphocytes Absolute Auto 1.2 10^3/uL (1.2-3.8); Lymphocytes Percent Auto 17.2 % (20.5-60.0); Mean Corpuscular HGB Conc 33.1 g/dL (29.9-35.2); Mean Corpuscular Hemoglobin 27.8 pg (25.9-34.0); Mean Corpuscular Volume 83.8 fL (80.0-94.0); Mean Platelet Volume 8.9 fL (9.5-13.5); Monocytes Absolute Auto 0.4 10^3/uL (0.3-0.8); Monocytes Percent Auto 5.5 % (1.7-12.0); Neutrophils Percent Auto 74.2 % (43.0-75.0); Platelet Count 245 10^3/uL (150-450); Red Blood Count 4.32 10^6/uL (4.70-6.10); Red Cell Distribution Width 16.1 % (11.0-15.0); White Blood Count 6.7 10^3/uL (4.0-11.0)
[2024-09-29 00:29] LABS: Alanine Aminotransferase 18 U/L (16-63); Albumin Globulin Ratio 1.2; Albumin Level 3.6 g/dL (3.4-5.0); Alkaline Phosphatase 74 U/L (46-116); Anion Gap 11.7; Aspartate Amino Transferase 9 U/L (15-37); BUN Creatinine Ratio 22.8; Bilirubin Total 0.7 mg/dL (0.2-1.0); Calcium 9.6 mg/dL (8.5-10.1); Carbon Dioxide 29.6 mmol/L (21.0-32.0); Chloride 101 mmol/L (98-107); Estimated GFR (African America >60 (>=60 mL/min/1.73m^2); Estimated GFR (Non-African Ame >60 (>=60 mL/min/1.73m^2); Globulin 3.1 g/dL; Glucose 160 mg/dL (74-106); Potassium 4.3 mmol/L (3.5-5.1); Sodium 138 mmol/L (136-145); Total Protein 6.7 g/dL (6.4-8.2)
[2024-09-29] MEDS: CEFTRIAXONE 1,000 MG in 0.9 % SODIUM CHLORIDE 50 ML 100 MG IV ×2 (00:31→21:17)
[2024-09-29 00:33] LABS: INR 1.09; Prothrombin Time 11.5 sec (9.0-11.6)
[2024-09-29] MEDS: SODIUM CHLORIDE IRRIG SOLUTION 3,000 ML 3000 ML IRR ×18 (00:35→22:33)
[2024-09-29] MEDS: HYDROCODONE/ACET 5-325 MG TABLET 1 TAB PO (01:45)
[2024-09-29] MEDS: ONDANSETRON 4 MG RAPDIS TABLET SL (01:45)
--- NOTE | 2024-09-29 07:40 | ED.GENADUL1 ---
HPI HPI - General Adult General Chief complaint: Urogenital-Male Stated complaint: URINARY CATHETER ISSUES Time Seen by Provider: 09/28/24 23:23 Source: patient Mode of arrival: ambulance Limitations: no limitations Related Data Home Medications ?Medication ?Instructions ?Recorded ?Confirmed aspirin 81 mg tablet,delayed 81 mg PO .QD 03/31/24 06/05/24 release flash glucose scanning reader 03/31/24 03/31/24 (FreeStyle Kathie 2 [place]) flash glucose sensor (FreeStyle 03/31/24 03/31/24 Kathie 2 Sensor kit) insulin glargine 100 unit/mL (3 15 unit subcut .QHS 03/31/24 06/05/24 mL) subcutaneous pen (Lantus Solostar U-100 Insulin) insulin syringe-needle U-100 1 mL 03/31/24 03/31/24 30 gauge x 7/16 atorvastatin 40 mg tablet 40 mg PO DAILY 06/05/24 06/05/24 gabapentin 100 mg capsule 100 mg PO TID 06/05/24 06/05/24 insulin lispro 100 unit/mL 1 sliding scale dose subcut 06/05/24 06/05/24 subcutaneous solution (Admelog USEASDIRECTD U-100 Insulin lispro) melatonin 3 mg capsule 6 mg PO DAILY 06/05/24 06/05/24 pantoprazole 40 mg tablet,delayed 40 mg PO BID 06/05/24 06/05/24 release (Protonix) tamsulosin 0.4 mg capsule 0.4 mg PO BID 06/05/24 06/05/24 ticagrelor 90 mg tablet (Brilinta) 90 mg PO BID 06/05/24 06/05/24 trazodone 50 mg tablet 50 mg PO DAILY 06/05/24 06/05/24 Allergies Allergy/AdvReac Type Severity Reaction Status Date / Time No Known Drug Allergies Allergy Verified 09/28/24 23:27 Opioid HPI Opioid Management Most Recent Opioid Data: Last Pain Scale 0 04/01/24 15:10 04/01/24 Last Pain Intensity 3 04/01/24 10:16 04/01/24 Last ORT Total Score 3 03/31/24 17:34 03/31/24 Last ORT Risk Category Low Risk 03/31/24 17:34 03/31/24 Review of Systems ROS Narrative 10 Systems were reviewed, and unless noted in the HPI, all other systems are reviewed, unremarkable, or noncontributory. [facility] Medical History (Updated 09/29/24 @ 05:37 by Cyndy Blair MD) Hematoma ?T14.8XXA - Other injury of unspecified body region, initial encounter (ICD-10) Bursitis ?M71.9 - Bursopathy, unspecified (ICD-10) History of CVA (cerebrovascular accident) ?Z86.73 - Personal history of transient ischemic attack (TIA), and cerebral infarction without residual deficits (ICD-10) DM2 (diabetes mellitus, type 2) ?E11.9 - Type 2 diabetes mellitus without complications (ICD-10) Osteoarthritis ?M19.90 - Unspecified osteoarthritis, unspecified site (ICD-10) HTN (hypertension) ?I10 - Essential (primary) hypertension (ICD-10) Hyperlipidemia ?E78.5 - Hyperlipidemia, unspecified (ICD-10) Surgical History (Updated 03/31/24 @ 17:36 by Keli Gastelum RN) H/O repair of right rotator cuff ?Z98.890 - Other specified postprocedural states (ICD-10) History of total left knee replacement ?Z96.652 - Presence of left artificial knee joint (ICD-10) Family History (Updated 03/31/24 @ 17:37 by Keli Gastelum RN) Sister Family history of cancer Mother Family history of cancer Grandmother Family history of stroke Social History (Updated 03/31/24 @ 17:41 by Keli Gastelum RN) Within the past year, how often did you have a drink containing alcohol: never Score interpretation: A score less than 4 is consistent with normal alcohol consumption. Smoking status: Current every day smoker Non-prescribed substance use: denies use Highest level of school completed/degree received: high school graduate Little interest or pleasure in doing things: not at all Feeling down, depressed, or hopeless: not at all Exam Constitutional Vital Signs, click to edit/add: Last Vital Signs Temp 97.9 F 09/28/24 23:24 Pulse 73 09/28/24 23:24 Resp 18 09/28/24 23:24 BP 127/68 09/29/24 06:00 Pulse Ox 95 09/29/24 06:01 O2 Del Method Room Air 09/28/24 23:24 Course Vital Signs Vital signs: Vital Signs Temperature 97.9 F 09/28/24 23:24 Pulse Rate 73 09/28/24 23:24 Respiratory Rate 18 09/28/24 23:24 Blood Pressure 138/76 09/28/24 23:24 Pulse Oximetry 97 09/28/24 23:24 Oxygen Delivery Method Room Air 09/28/24 23:24 Temperature 97.9 F 09/28/24 23:24 Pulse Rate 73 09/28/24 23:24 Respiratory Rate 18 09/28/24 23:24 Blood Pressure 127/68 09/29/24 06:00 Pulse Oximetry 95 09/29/24 06:01 Oxygen Delivery Method Room Air 09/28/24 23:24 Medical Decision Making Lab Data Labs: Lab Results 09/29/24 Range/Units 00:03 WBC 6.7 (4.0-11.0) 10^3/uL RBC 4.32 L (4.70-6.10) 10^6/uL Hgb 12.0 L (14.0-18.0) g/dL Hct 36.2 L (42.0-54.0) % MCV 83.8 (80.0-94.0) fL MCH 27.8 (25.9-34.0) pg MCHC 33.1 (29.9-35.2) g/dL RDW 16.1 H (11.0-15.0) % Plt Count 245 (150-450) 10^3/uL MPV 8.9 L (9.5-13.5) fL Neut % (Auto) 74.2 (43.0-75.0) % Lymph % (Auto) 17.2 L (20.5-60.0) % [place] % (Auto) 5.5 (1.7-12.0) % Eos % (Auto) 2.2 (0.9-7.0) % Baso % (Auto) 0.6 (0.2-2.0) % Neut # (Auto) 5.0 (1.4-6.5) 10^3/uL Lymph # (Auto) 1.2 (1.2-3.8) 10^3/uL [place] # (Auto) 0.4 (0.3-0.8) 10^3/uL Eos # (Auto) 0.2 (0.0-0.7) 10^3/uL Baso # (Auto) 0.0 (0.0-0.1) 10^3/uL Abs Immat Gran (auto) 0.02 (0.00-0.03) 10^3/uL Imm/Tot Granulo (auto) 0.3 (0.0-0.5) % PT 11.5 (9.0-11.6) sec INR 1.09 Sodium 138 (136-145) mmol/L Potassium 4.3 (3.5-5.1) mmol/L Chloride 101 (98-107) mmol/L Carbon Dioxide 29.6 (21.0-32.0) mmol/L Anion Gap 11.7 BUN 23.0 H (7.0-18.0) mg/dL Creatinine 1.01 (0.70-1.30) mg/dL Est GFR ( Amer) >60 (>=60 mL/min/1.73m^2) Est GFR (Non-Af Amer) >60 (>=60 mL/min/1.73m^2) BUN/Creatinine Ratio 22.8 Glucose 160 H (74-106) mg/dL Calcium 9.6 (8.5-10.1) mg/dL Total Bilirubin 0.7 (0.2-1.0) mg/dL AST 9 L (15-37) U/L ALT 18 (16-63) U/L Alkaline Phosphatase 74 (46-116) U/L Total Protein 6.7 (6.4-8.2) g/dL Albumin 3.6 (3.4-5.0) g/dL Globulin 3.1 g/dL Albumin/Globulin Ratio 1.2 Blood Type A Positive Antibody Screen Negative Imaging Data 1. Satisfactory place Cyr catheter and balloon within the lumen of urinary bladder; however, there is extensive hyperdense fluid throughout the mary: Radiologist's impression: ITS Impressions Abdomen/Pelvis CT 09/28/24 23:46 IMPRESSION: 1. Satisfactory place Cyr catheter and balloon within the lumen of urinary bladder; however, there is extensive hyperdense fluid throughout the bladder lumen consistent with intraluminal hemorrhage. Follow-up to resolution. No signs of bladder rupture otherwise. 2. Redemonstration of complicated cystic lesion in the upper pole left kidney. Given the bullet assembly press setter operator technique differences in measurements, this does not appear to change significantly since 05/02/2016. Therefore, statistically a Bosniak 2 cyst. There are other scattered simple cysts in the left kidney. 3. Stable simple lower pole right renal cyst. 4. Nonspecific gallbladder distention with suggestion of small dependent calcified gallstones. 5. Fecal retention/constipation. Electronically authenticated by: EFRAÍN BERNAL Date: 09/29/2024 01:17 Discharge Plan Discharge Patient Disposition: Still a Patient
[2024-09-29 09:11] LABS: Hematocrit 36.6 % (42.0-54.0)
[2024-09-29] MEDS: LIDOCAINE 2% JELLY 10 ML UR (09:21)
[2024-09-29] MEDS: WATER FOR IRRIGATION, STERILE 1,000 ML IRRIG BOTTLE 1000 ML IRR (09:21)
[2024-09-29] MEDS: ACETAMINOPHEN 325 MG TABLET 650 MG PO (11:02)
--- NOTE | 2024-09-29 11:24 | PC.NURSE ---
Catheter checked after being clamped for 20 mins and multiple clots had formed. Urine dark red . Dr Noel at bedside and is aware . CBI resumed
[2024-09-29] MEDS: LEVOFLOXACIN IN DEXTROSE 5 % 500 MG/100 ML PREMIX 100 MG IV (12:38)
--- NOTE | 2024-09-29 13:44 | PC.NURSE ---
Pt irrigated due to CBI not flowing, large clot removed. CBI continued without difficulty.
[2024-09-29] MEDS: GABAPENTIN 100 MG CAPSULE PO ×2 (14:24→21:20)
--- NOTE | 2024-09-29 14:49 | SWNOTE1 ---
Pt is from [facility]. Jessica from [facility] reached out and if pt does have therapy she will try to skill him prior to his return.
--- NOTE | 2024-09-29 15:12 | PM.HP ---
HPI H&P: HPI History of Present Illness Chief complaint: URINARY CATHETER ISSUES, HEMATURIA, CLOTS Narrative: 69-year-old male brought to the emergency department from the extended care facility where he currently resides for evaluation of urinary retention and hematuria. Patient has left sided hemiparesis from ischemic stroke last year in September and has chronic indwelling urinary catheter for urinary retention. According to the report, patient's urinary catheter was changed last night. He then developed urinary retention and when nursing staff irrigated it, there were blood clots and large amount of nakia blood in his urinary catheter. He is on ASA, brilinta for stenosis of MCA. Patient was brought over to ED and placed of CBI. His urine did not clear with CBI in ED and after consultation with Urology, he was admitted for observation for gross hematuria for CBI. At the time of my evaluation, he had no active complaints to offer. Opioid HPI Opioid Management Most Recent Pain and Opioid Data: Last Pain Scale 4 09/29/24 11:02 09/29/24 Last Pain Intensity 3 04/01/24 10:16 04/01/24 Last Pain Assessment 09/29/24 14:00 Last MAR Pain Assessment 09/29/24 11:02 Last ORT Total Score 7 09/29/24 13:05 09/29/24 Last ORT Risk Category Moderate Risk 09/29/24 13:05 09/29/24 Review of Systems ROS Status of ROS 10 or more systems reviewed and unremarkable except as noted in history and below [facility] Medical History (Updated 09/29/24 @ 15:19 by Shaikh Zainab MD) Chronic indwelling Cyr catheter ?Z97.8 - Presence of other specified devices (ICD-10) H/O: stroke with residual effects ?I69.30 - Unspecified sequelae of cerebral infarction (ICD-10) CKD (chronic kidney disease) ?N18.9 - Chronic kidney disease, unspecified (ICD-10) CVA (cerebral vascular accident) ?I63.9 - Cerebral infarction, unspecified (ICD-10) Anxiety and depression ?F41.9 - Anxiety disorder, unspecified (ICD-10) ?F32.A - Depression, unspecified (ICD-10) Benign prostatic hyperplasia with lower urinary tract symptoms ?N40.1 - Benign prostatic hyperplasia with lower urinary tract symptoms (ICD-10) Hemiplegia affecting left nondominant side ?G81.94 - Hemiplegia, unspecified affecting left nondominant side (ICD-10) Hematoma ?T14.8XXA - Other injury of unspecified body region, initial encounter (ICD-10) Bursitis ?M71.9 - Bursopathy, unspecified (ICD-10) History of CVA (cerebrovascular accident) ?Z86.73 - Personal history of transient ischemic attack (TIA), and cerebral infarction without residual deficits (ICD-10) DM2 (diabetes mellitus, type 2) ?E11.9 - Type 2 diabetes mellitus without complications (ICD-10) Osteoarthritis ?M19.90 - Unspecified osteoarthritis, unspecified site (ICD-10) HTN (hypertension) ?I10 - Essential (primary) hypertension (ICD-10) Hyperlipidemia ?E78.5 - Hyperlipidemia, unspecified (ICD-10) Surgical History (Updated 03/31/24 @ 17:36 by Keli Gastelum, SMOOTH) H/O repair of right rotator cuff ?Z98.890 - Other specified postprocedural states (ICD-10) History of total left knee replacement ?Z96.652 - Presence of left artificial knee joint (ICD-10) Family History (Updated 03/31/24 @ 17:37 by Keli Gastelum, SMOOTH) Sister Family history of cancer Mother Family history of cancer Grandmother Family history of stroke Social History (Updated 09/29/24 @ 15:22 by Shaikh Zainab MD) Within the past year, how often did you have a drink containing alcohol: never Score interpretation: A score less than 4 is consistent with normal alcohol consumption. Smoking status: Former smoker Non-prescribed substance use: denies use Highest level of school completed/degree received: high school graduate Little interest or pleasure in doing things: not at all Feeling down, depressed, or hopeless: not at all Meds Home Medications and Allergies Home Medications ?Medication ?Instructions ?Recorded ?Confirmed ?Type aspirin 81 mg tablet,delayed 81 mg PO .QD 03/31/24 09/29/24 History release flash glucose scanning reader 03/31/24 09/29/24 History (FreeStyle Kathie 2 [place]) flash glucose sensor (FreeStyle 03/31/24 09/29/24 History Kathie 2 Sensor kit) insulin glargine 100 unit/mL (3 15 unit subcut .QHS 03/31/24 09/29/24 History mL) subcutaneous pen (Lantus Solostar U-100 Insulin) insulin syringe-needle U-100 1 mL 03/31/24 09/29/24 History 30 gauge x /16 atorvastatin 40 mg tablet 40 mg PO DAILY 06/05/24 09/29/24 History gabapentin 100 mg capsule 100 mg PO TID 06/05/24 09/29/24 History melatonin 3 mg capsule 6 mg PO DAILY 06/05/24 09/29/24 History pantoprazole 40 mg tablet,delayed 40 mg PO .q24 06/05/24 09/29/24 History release (Protonix) tamsulosin 0.4 mg capsule 0.4 mg PO .qhs 06/05/24 09/29/24 History ticagrelor 90 mg tablet (Brilinta) 90 mg PO BID 06/05/24 09/29/24 History trazodone 50 mg tablet 25 mg PO DAILY 06/05/24 09/29/24 History insulin lispro 100 unit/mL 1 sliding scale dose subcut ACHS 09/29/24 09/29/24 History subcutaneous pen (Admelog SoloStar U-100 Insulin lispro) magnesium hydroxide 400 mg/5 mL 5 ml PO .qhs PRN constipation 09/29/24 09/29/24 History oral suspension (Dulcolax (magnesium hydroxide)) magnesium oxide 400 mg PO DAILY 09/29/24 09/29/24 History metoprolol succinate 50 mg 50 mg PO QDAY 09/29/24 09/29/24 History tablet,extended release 24 hr polyethylene glycol 3350 17 17 g PO DAILY 09/29/24 09/29/24 History gram/dose oral powder (ClearLax) sennosides 8.6 mg tablet (Senna 17.2 mg PO DAILY 09/29/24 09/29/24 History Lax) sennosides 8.6 mg-docusate sodium 1 tab-cap PO DAILY 09/29/24 09/29/24 History 50 mg tablet (Senna with Docusate Sodium) Allergies Allergy/AdvReac Type Severity Reaction Status Date / Time No Known Drug Allergies Allergy Verified 09/28/24 23:27 Exam Constitutional Vital Signs, click to edit/add: Last Vital Signs Temp 98.1 F 09/29/24 13:05 Pulse 70 09/29/24 13:05 Resp 16 09/29/24 13:05 BP 155/85 H 09/29/24 13:05 Pulse Ox 92 L 09/29/24 13:05 O2 Del Method Room Air 09/29/24 13:05 Documenting provider has reviewed patient's vital signs: yes Common normals: no apparent distress and oriented x3 General appearance: cooperative HENMT Common normals: normocephalic and head/scalp atraumatic Head and scalp: normocephalic and atraumatic Eye Conjunctiva: conjunctiva(e) normal Respiratory Common normals: normal respiratory effort and clear to auscultation bilaterally Effort & inspection: able to speak in complete sentences Auscultation: clear to auscultation bilaterally Cardio Common normals: regular rate, S1 normal heart sound and S2 normal heart sound Rate: regular rate Heart sounds: S1 normal and S2 normal GI Common normals: Normal to inspection, nondistended, normoactive bowel sounds present, soft to palpation, non-tender and no hepatosplenomegaly Palpation: soft and no hepatosplenomegaly Other: Three way catheter in place. [place] colored urine noted. Extremity Common normals: no clubbing, cyanosis or edema Neuro Common normals: oriented x3 Other: Left sided hemiparesis. Bed bound. Psych Common normals: mental status grossly normal, denies hallucinations, denies homicidal ideation and denies suicidal ideation Results Labs Labs: Short CBC 09/29/24 09/29/24 Range/Units 00:03 09:05 WBC 6.7 (4.0-11.0) 10^3/uL Hgb 12.0 L 12.0 L (14.0-18.0) g/dL Hct 36.2 L 36.6 L (42.0-54.0) % Plt Count 245 (150-450) 10^3/uL BMP 09/29/24 00:03 Sodium 138 Potassium 4.3 Chloride 101 Carbon Dioxide 29.6 BUN 23.0 H Creatinine 1.01 Glucose 160 H Calcium 9.6 Liver Function 09/29/24 Range/Units 00:03 Total Bilirubin 0.7 (0.2-1.0) mg/dL AST 9 L (15-37) U/L ALT 18 (16-63) U/L Alkaline Phosphatase 74 (46-116) U/L Albumin 3.6 (3.4-5.0) g/dL Assessment and Plan Assessment and Plan (1) Gross hematuria: Assessment and Plan: Gross hematuria, likely from traumatic catheter insertion. on CBI. Monitor Hb. Urolgoy consulted. On empirical Abx as patient is on CBI. (2) Chronic indwelling Cyr catheter: Assessment and Plan: for chronic retention and BPH since he developed stroke. (3) Benign prostatic hyperplasia with lower urinary tract symptoms: Assessment and Plan: Has chronic indwelling catheter. Qualifiers: Lower urinary tract symptom detail: urinary retention Qualified Code(s): N40.1 - Benign prostatic hyperplasia with lower urinary tract symptoms; R33.8 - Other retention of urine (4) H/O: stroke with residual effects: Assessment and Plan: Left sided hemiparesis. On ASA/Brilinta. Hold for now. 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 C/w home medications Qualifiers: Hypertension type: primary hypertension Qualified Code(s): I10 - Essential (primary) hypertension (8) Hyperlipidemia: Assessment and Plan: c/w statin Qualifiers: Hyperlipidemia type: unspecified Qualified Code(s): E78.5 - Hyperlipidemia, unspecified Urinary Catheter Management Urinary Catheter Management 3-way Urethral: Cath placed during this visit: yes, but has since been removed by the nurse Insertion date: 09/28/24 Insertion time: 23:59 Removal date: 09/29/24 Removal time: 07:10
--- NOTE | 2024-09-29 15:30 | PC.NURSE ---
RN hand irrigated patient, got small to moderate amount of small clots, patient tolerated well
--- NOTE | 2024-09-29 16:08 | SWNOTE1 ---
Medicare Outpatient Observation Notice reviewed and discussed with patient. Pt. verbalized understanding and signed the form. Original given to patient and copy placed in patient?s chart.
--- NOTE | 2024-09-29 16:08 | SWNOTE1 ---
BRENDA met with pt to discuss dc needs. Pt is from [facility]. He stated he has been there since around December or January after a stroke. When asked if pt likes it there he said it is so/so. Pt's plan is to return at discharge. Pt did work with therapy, but close to his baseline. At this time pt has no further questions or concerns. SW to follow as needed. Updates sent to Jessica at [facility] including physician notes, PT, labs, vitals, diagnostic imaging, and nursing notes.
[2024-09-29 17:07] LABS: Glucometer 199 mg/dL (74-106)
--- NOTE | 2024-09-29 18:00 | PC.NURSE ---
CBI emptied for 1500cc clear pale yellow
--- NOTE | 2024-09-29 20:29 | PC.NURSE ---
CBI emptied for 2650cc pale yellow. Pt turned and clean pad put under him. Ycr drainage pinks up slightly with movement.
[2024-09-29] MEDS: HYDROCORTISONE ACETATE 25 MG RECTAL SUPPOSITORY PR (21:11)
[2024-09-29] MEDS: ATORVASTATIN CALCIUM 40 MG TABLET PO (21:11)
[2024-09-29] MEDS: TRAZODONE HCL 50 MG TABLET 25 MG PO (21:18)
[2024-09-29] MEDS: TAMSULOSIN HCL 0.4 MG CAPSULE PO (21:18)
[2024-09-29] MEDS: SENNOSIDES 8.6 MG TABLET 17.2 MG PO (21:19)
[2024-09-29] MEDS: TEMAZEPAM 15 MG CAPSULE PO (21:21)
[2024-09-29 21:37] LABS: Glucometer 243 mg/dL (74-106)
[2024-09-29] MEDS: INSULIN GLARGINE 300 UNIT/3 ML INSULN.PEN 15 UNIT SQ (21:39)
[2024-09-29] MEDS: INSULIN ASPART 300 UNIT/3 ML PEN SUBQ (21:39)
[2024-09-30] VITALS (11 sets, daily range): BP systolic 109–115; BP diastolic 66–73; PULSE 61–92; TEMP 36.4–36.6; O2SAT 90–98
[2024-09-30] MEDS: SODIUM CHLORIDE IRRIG SOLUTION 3,000 ML 3000 ML IRR ×3 (01:24→07:58)
[2024-09-30 06:41] LABS: Basophils Percent Auto 0.6 % (0.2-2.0); Eosinophils Absolute Auto 0.1 10^3/uL (0.0-0.7); Eosinophils Percent Auto 2.4 % (0.9-7.0); Hematocrit 32.7 % (42.0-54.0); Hemoglobin 10.8 g/dL (14.0-18.0); Immature Granulocytes Abs Auto 0.01 10^3/uL (0.00-0.03); Immature Granulocytes Pct Auto 0.2 % (0.0-0.5); Lymphocytes Absolute Auto 1.7 10^3/uL (1.2-3.8); Lymphocytes Percent Auto 34.9 % (20.5-60.0); Mean Corpuscular Volume 84.7 fL (80.0-94.0); Mean Platelet Volume 9.4 fL (9.5-13.5); Monocytes Absolute Auto 0.4 10^3/uL (0.3-0.8); Monocytes Percent Auto 7.6 % (1.7-12.0); Neutrophils Absolute Auto 2.7 10^3/uL (1.4-6.5); Neutrophils Percent Auto 54.3 % (43.0-75.0); Platelet Count 245 10^3/uL (150-450); Red Blood Count 3.86 10^6/uL (4.70-6.10); Red Cell Distribution Width 16.3 % (11.0-15.0)
[2024-09-30 07:02] LABS: Alanine Aminotransferase 15 U/L (16-63); Albumin Globulin Ratio 1.2; Albumin Level 3.3 g/dL (3.4-5.0); Alkaline Phosphatase 72 U/L (46-116); Anion Gap 12.6; Aspartate Amino Transferase 6 U/L (15-37); BUN Creatinine Ratio 33.3; Bilirubin Total 0.4 mg/dL (0.2-1.0); Calcium 8.8 mg/dL (8.5-10.1); Carbon Dioxide 27.6 mmol/L (21.0-32.0); Chloride 105 mmol/L (98-107); Estimated GFR (African America >60 (>=60 mL/min/1.73m^2); Estimated GFR (Non-African Ame >60 (>=60 mL/min/1.73m^2); Globulin 2.7 g/dL; Glucose 133 mg/dL (74-106); Potassium 4.2 mmol/L (3.5-5.1); Sodium 141 mmol/L (136-145)
--- NOTE | 2024-09-30 10:27 | CM.NOTE ---
Rounds made with Dr. Lamb. Potential discharge later today.
--- NOTE | 2024-09-30 10:30 | PC.NURSE ---
CBI stopped at this time
[2024-09-30] MEDS: MAGNESIUM OXIDE 400 MG TABLET PO (10:47)
[2024-09-30] MEDS: METOPROLOL SUCCINATE 50 MG TAB.ER.24H PO (10:47)
[2024-09-30] MEDS: SENNOSIDES/DOCUSATE SODIUM 1 TAB TABLET PO (10:48)
[2024-09-30] MEDS: POLYETHYLENE GLYCOL 3350 17 GM POWDER PACKET PO (10:48)
[2024-09-30 11:26] LABS: Glucometer 199 mg/dL (74-106)
[2024-09-30] MEDS: ACETAMINOPHEN 325 MG TABLET 650 MG PO ×2 (12:09→18:38)
[2024-09-30] MEDS: INSULIN ASPART 300 UNIT/3 ML PEN SUBQ ×2 (12:10→18:38)
--- NOTE | 2024-09-30 12:36 | PM.DS1 ---
DS: Providers Provider Date of admission: 09/29/24 12:42 Primary care physician: Vinnie Garza DO Admitting clinician: Shaikh Zainab Attending physician on admission: Shaikh Zainab Consults: 09/29/24 12:01 Physical Therapy Eval and Treat Routine Reason for consultation: Ambulatory dysfunction/weakness 09/30/24 10:35 Consult to Urology Routine Consulting Provider: Dionte Rizvi Reason for consultation: hematuria Attending physician on discharge: Shaikh Zainab Discharging clinician: Shaikh Zainab Anticipated date of discharge: 09/30/24 DS: Diagnosis Discharge Diagnosis (1) Gross hematuria: (2) Chronic indwelling Cyr catheter: (3) Benign prostatic hyperplasia with lower urinary tract symptoms: Qualifiers: Lower urinary tract symptom detail: urinary retention Qualified Code(s): N40.1 - Benign prostatic hyperplasia with lower urinary tract symptoms; R33.8 - Other retention of urine (4) H/O: stroke with residual effects: (5) Hemiplegia affecting left nondominant side: Qualifiers: Hemiplegia type: flaccid Hemiplegia etiology: late effect of cerebrovascular disease Cerebrovascular disease type: cerebral infarction Qualified Code(s): I69.354 - Hemiplegia and hemiparesis following cerebral infarction affecting left non-dominant side (6) DM2 (diabetes mellitus, type 2): Qualifiers: 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: with alf use Diabetes mellitus complication status: without complication Qualified Code(s): E11.9 - Type 2 diabetes mellitus without complications; Z79.4 - group home (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 insulin (7) HTN (hypertension): Qualifiers: Hypertension type: primary hypertension Qualified Code(s): I10 - Essential (primary) hypertension (8) Hyperlipidemia: Qualifiers: Hyperlipidemia type: unspecified Qualified Code(s): E78.5 - Hyperlipidemia, unspecified DS: Summary Hospital Course Hospital Course: 69-year-old male brought to the emergency department from the [facility] where he currently resides for evaluation of urinary retention and hematuria. Patient has left sided hemiparesis from ischemic stroke last year in September and has chronic indwelling urinary catheter for urinary retention. According to the report, patient's urinary catheter was changed night before admission. He then developed urinary retention and when nursing staff irrigated it, there were blood clots and large amount of nakia blood in his urinary catheter. He is on ASA, brilinta for stenosis of MCA. Patient was brought over to ED and placed on CBI. His urine did not clear with CBI in ED and after consultation with Urology, he was admitted for observation for gross hematuria for CBI. He was monitoed overnight for hematura and was on CBI. This morning, we stopped CBI. his urine is clear with no gross hematuria or retention. He is comfortable and has no complaints to offer. His Hb also is stable. He is medically stable for discharge. He will need to hold ASA, brilinta until Friday and can then resume them. Fu PCP in one week F/u with urology in 2 weeks Status at Discharge Functional status at discharge: bed bound Overall status at discharge: patient is progressing back to baseline Time Spent with Patient Time attestation: Total time spent providing and/or coordinating discharge services: Exam Constitutional Vital Signs, click to edit/add: Last Vital Signs Temp 97.7 F 09/30/24 10:39 Pulse 81 09/30/24 12:00 Resp 18 09/30/24 10:39 BP 115/66 09/30/24 10:39 Pulse Ox 95 09/30/24 11:54 O2 Del Method Room Air 09/30/24 11:54 Documenting provider has reviewed patient's vital signs: yes Common normals: no apparent distress and oriented x3 General appearance: cooperative Respiratory Common normals: normal respiratory effort and clear to auscultation bilaterally Effort & inspection: able to speak in complete sentences Auscultation: clear to auscultation bilaterally Cardio Common normals: regular rate, S1 normal heart sound and S2 normal heart sound Rate: regular rate Heart sounds: S1 normal and S2 normal GI Common normals: Normal to inspection, nondistended, normoactive bowel sounds present, soft to palpation, non-tender and no hepatosplenomegaly Palpation: soft and no hepatosplenomegaly Other: Three way catheter in place. [place] colored urine noted. Extremity Common normals: no clubbing, cyanosis or edema Neuro Common normals: oriented x3 Other: Left sided hemiparesis. Bed bound. Psych Common normals: mental status grossly normal, denies hallucinations, denies homicidal ideation and denies suicidal ideation DS: Data Data Completed and Pending Labs on day of discharge: Labs from last 24 hours 09/30/24 09/30/24 09/29/24 11:20 05:47 21:31 WBC 5.0 RBC 3.86 L Hgb 10.8 L Hct 32.7 L MCV 84.7 MCH 28.0 MCHC 33.0 RDW 16.3 H Plt Count 245 MPV 9.4 L Neut % (Auto) 54.3 Lymph % (Auto) 34.9 [place] % (Auto) 7.6 Eos % (Auto) 2.4 Baso % (Auto) 0.6 Neut # (Auto) 2.7 Lymph # (Auto) 1.7 [place] # (Auto) 0.4 Eos # (Auto) 0.1 Baso # (Auto) 0.0 Abs Immat Gran (auto) 0.01 Imm/Tot Granulo (auto) 0.2 Sodium 141 Potassium 4.2 Chloride 105 Carbon Dioxide 27.6 Anion Gap 12.6 BUN 22.0 H Creatinine 0.66 L Est GFR ( Amer) >60 Est GFR (Non-Af Amer) >60 BUN/Creatinine Ratio 33.3 Glucose 133 H Calcium 8.8 Total Bilirubin 0.4 AST 6 L ALT 15 L Alkaline Phosphatase 72 Total Protein 6.0 L Albumin 3.3 L Globulin 2.7 Albumin/Globulin Ratio 1.2 POC Glucose 199 H 243 H 09/29/24 16:57 WBC RBC Hgb Hct MCV MCH MCHC RDW Plt Count MPV Neut % (Auto) Lymph % (Auto) [place] % (Auto) Eos % (Auto) Baso % (Auto) Neut # (Auto) Lymph # (Auto) [place] # (Auto) Eos # (Auto) Baso # (Auto) Abs Immat Gran (auto) Imm/Tot Granulo (auto) Sodium Potassium Chloride Carbon Dioxide Anion Gap BUN Creatinine Est GFR ( Amer) Est GFR (Non-Af Amer) BUN/Creatinine Ratio Glucose Calcium Total Bilirubin AST ALT Alkaline Phosphatase Total Protein Albumin Globulin Albumin/Globulin Ratio POC Glucose 199 H Discharge Plan Discharge Disposition: Xfer SNF Condition: Fair Discharge Medications: New cefuroxime axetil 500 mg tablet 500 mg PO BID 7 Days Qty: 14 0RF Continued atorvastatin 40 mg tablet 40 mg PO DAILY gabapentin 100 mg capsule 100 mg PO TID melatonin 3 mg capsule 6 mg PO DAILY pantoprazole [Protonix] 40 mg tablet,delayed release (DR/EC) 40 mg PO .q24 tamsulosin 0.4 mg capsule 0.4 mg PO .qhs trazodone 50 mg tablet 25 mg PO DAILY magnesium hydroxide [Dulcolax (magnesium hydroxide)] 400 mg/5 mL suspension 5 ml PO .qhs PRN (Reason: constipation) magnesium oxide 400 mg magnesium capsule 400 mg PO DAILY metoprolol succinate 50 mg tablet extended release 24 hr 50 mg PO QDAY polyethylene glycol 3350 [ClearLax] 17 gram/dose powder 17 g PO DAILY sennosides [Senna Lax] 8.6 mg tablet 17.2 mg PO DAILY sennosides-docusate sodium [Senna with Docusate Sodium] 8.6-50 mg tablet 1 tab-cap PO DAILY insulin lispro [Admelog SoloStar U-100 Insulin] 100 unit/mL insulin pen 1 sliding scale dose SUBCUT ACHS (DME) insulin syringe-needle U-100 1 mL 30 gauge X 7/16 syringe MISCELLANEOUS insulin glargine [Lantus Solostar U-100 Insulin] 100 unit/mL (3 mL) insulin pen 15 unit SUBCUT .QHS (DME) FreeStyle Kathie 2 Sensor Kit MISCELLANEOUS (DME) FreeStyle Kathie 2 [place] Misc MISCELLANEOUS Held Brilinta 90 mg tablet 90 mg PO BID Hold Instructions: Resume on 10/04/24. aspirin 81 mg tablet,delayed release (DR/EC) 81 mg PO .QD Hold Instructions: Resume on 10/04/24. Print Language: Hungarian Forms: Portal Instructions Follow Up Appointments: f/u with PCP in one week F/u with urology in 2 weeks
--- NOTE | 2024-09-30 12:46 | SWNOTE1 ---
Pt is stable for discharge back to [facility] today, nursing home. SW to set up stretcher transport.
--- NOTE | 2024-09-30 13:17 | SWNOTE1 ---
BRENDA faxed over dc med rec and dc summary to [facility]. BRENDA set up [facility] transport for 3:30. SW notified nurse and [facility] of dc time. BRENDA also left message for pt's daughter, Bhumika, to notify of discharge time. BRENDA took packet to the floor and filled out [facility] paperwork.
[2024-09-30] MEDS: GABAPENTIN 100 MG CAPSULE PO (14:56)
--- NOTE | 2024-09-30 15:14 | SWNOTE1 ---
SW received a call from [facility] and they are running behind due to ED calls, they are now going to be here at 6:10pm. SW notified nurse and [facility].
--- NOTE | 2024-09-30 16:14 | PC.NURSE ---
report given to jordan at the [facility]. all questions answered
[2024-09-30 16:15] LABS: Glucometer 207 mg/dL (74-106)
== END 2024-09-30 19:12 ==
LOC: ER 09-29 12:01 → MS 09-29 12:50
PROVIDERS: Emergency Medicine; Admitting Provider Internal Medicine; Emergency Provider Emergency Medicine; PCP Internal Medicine; Visit Provider Internal Medicine
DX: R31.0 Gross hematuria (principal); R33.8 Other retention of urine; N40.1 Benign prostatic hyperplasia with lower urinary tract symptoms; E11.9 Type 2 diabetes mellitus without complications; I10 Essential (primary) hypertension; E78.5 Hyperlipidemia, unspecified; I66.09 Occlusion and stenosis of unspecified middle cerebral artery; G81.94 Hemiplegia, unspecified affecting left nondominant side; Z87.891 Personal history of nicotine dependence; Z79.82 Long term (current) use of aspirin; Z96.0 Presence of urogenital implants; Z79.899 Other long term (current) drug therapy; Z74.01 Bed confinement status; Z79.4 Long term (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 insulin
CPT/HCPCS: 36415; 51702; 74176; 80053; 82948; 85014; 85018; 85025; 85610; 86850; 86900; 86901; 94761; 96365; 96366; 96367; 96376; 99285; G0378; J0696; Q0162

== ENCOUNTER 2024-10-01 19:36 | Emergency (ER) | payer MEDICARE, SELFPAY ==
[2024-10-01] VITALS (20 sets, daily range): BP systolic 128–152; BP diastolic 61–70; PULSE 61–77; TEMP 36.8; O2SAT 97; BMI 27.1
--- NOTE | 2024-10-01 19:42 | ED.MALEGU1 ---
HPI - Male Genitourinary General Chief complaint: Urogenital-Male Time Seen by Provider: 10/01/24 19:38 Source: patient Mode of arrival: ambulance Limitations: no limitations History of Present Illness HPI Narrative: The patient is a very pleasant 69-year-old male who presents to the emergency department via EMS from an extended care facility. The patient was brought in today for reassessment for gross hematuria. The patient had a similar presentation to the emergency department September 29. At that time, continuous bladder irrigation was continued inevitably, the patient was admitted to the hospital. According to the staff at the [facility] facility, the patient started bleeding again within 6 hours. When the patient did not have any improvement in the gross hematuria and then started to complain of suprapubic discomfort, the patient was transferred to the hospital for evaluation and perspective bladder scope. The patient was previously on Brilinta for his stroke. Since the gross hematuria, however, the patient has remained off of his anticoagulant therapy. Patient states that the pain is a 2 out of 10. It is pressure-like in sensation and constant. It does not radiate or move anywhere. Patient is nonambulatory at this time. He does not feel dizzy or lightheaded. Related Data Home Medications ?Medication ?Instructions ?Recorded ?Confirmed aspirin 81 mg tablet,delayed 81 mg PO .QD 03/31/24 09/29/24 release flash glucose scanning reader 03/31/24 09/29/24 (FreeStyle Kathie 2 [place]) flash glucose sensor (FreeStyle 03/31/24 09/29/24 Kathie 2 Sensor kit) insulin glargine 100 unit/mL (3 15 unit subcut .QHS 03/31/24 09/29/24 mL) subcutaneous pen (Lantus Solostar U-100 Insulin) insulin syringe-needle U-100 1 mL 03/31/24 09/29/24 30 gauge x 7/16 atorvastatin 40 mg tablet 40 mg PO DAILY 06/05/24 09/29/24 gabapentin 100 mg capsule 100 mg PO TID 06/05/24 09/29/24 melatonin 3 mg capsule 6 mg PO DAILY 06/05/24 09/29/24 pantoprazole 40 mg tablet,delayed 40 mg PO .q24 06/05/24 09/29/24 release (Protonix) tamsulosin 0.4 mg capsule 0.4 mg PO .qhs 06/05/24 09/29/24 ticagrelor 90 mg tablet (Brilinta) 90 mg PO BID 06/05/24 09/29/24 trazodone 50 mg tablet 25 mg PO DAILY 06/05/24 09/29/24 insulin lispro 100 unit/mL 1 sliding scale dose subcut ACHS 09/29/24 09/29/24 subcutaneous pen (Admelog SoloStar U-100 Insulin lispro) magnesium hydroxide 400 mg/5 mL 5 ml PO .qhs PRN constipation 09/29/24 09/29/24 oral suspension (Dulcolax (magnesium hydroxide)) magnesium oxide 400 mg PO DAILY 09/29/24 09/29/24 metoprolol succinate 50 mg 50 mg PO QDAY 09/29/24 09/29/24 tablet,extended release 24 hr polyethylene glycol 3350 17 17 g PO DAILY 09/29/24 09/29/24 gram/dose oral powder (ClearLax) sennosides 8.6 mg tablet (Senna 17.2 mg PO DAILY 09/29/24 09/29/24 Lax) sennosides 8.6 mg-docusate sodium 1 tab-cap PO DAILY 09/29/24 09/29/24 50 mg tablet (Senna with Docusate Sodium) Previous Rx's ?Medication ?Instructions ?Recorded cefuroxime axetil 500 mg tablet 500 mg PO BID 7 days #14 tabs 09/30/24 Allergies Allergy/AdvReac Type Severity Reaction Status Date / Time No Known Drug Allergies Allergy Verified 10/01/24 19:34 Review of Systems ROS Narrative 10 Systems were reviewed, and unless noted in the HPI, all other systems are reviewed, unremarkable, or noncontributory. [facility] Medical History Chronic indwelling Cyr catheter ?Z97.8 - Presence of other specified devices (ICD-10) H/O: stroke with residual effects ?I69.30 - Unspecified sequelae of cerebral infarction (ICD-10) CKD (chronic kidney disease) ?N18.9 - Chronic kidney disease, unspecified (ICD-10) CVA (cerebral vascular accident) ?I63.9 - Cerebral infarction, unspecified (ICD-10) Anxiety and depression ?F41.9 - Anxiety disorder, unspecified (ICD-10) ?F32.A - Depression, unspecified (ICD-10) Benign prostatic hyperplasia with lower urinary tract symptoms ?N40.1 - Benign prostatic hyperplasia with lower urinary tract symptoms (ICD-10) Hemiplegia affecting left nondominant side ?G81.94 - Hemiplegia, unspecified affecting left nondominant side (ICD-10) Hematoma ?T14.8XXA - Other injury of unspecified body region, initial encounter (ICD-10) Bursitis ?M71.9 - Bursopathy, unspecified (ICD-10) History of CVA (cerebrovascular accident) ?Z86.73 - Personal history of transient ischemic attack (TIA), and cerebral infarction without residual deficits (ICD-10) DM2 (diabetes mellitus, type 2) ?E11.9 - Type 2 diabetes mellitus without complications (ICD-10) Osteoarthritis ?M19.90 - Unspecified osteoarthritis, unspecified site (ICD-10) HTN (hypertension) ?I10 - Essential (primary) hypertension (ICD-10) Hyperlipidemia ?E78.5 - Hyperlipidemia, unspecified (ICD-10) Surgical History H/O repair of right rotator cuff ?Z98.890 - Other specified postprocedural states (ICD-10) History of total left knee replacement ?Z96.652 - Presence of left artificial knee joint (ICD-10) Family History Sister Family history of cancer Mother Family history of cancer Grandmother Family history of stroke Social History Within the past year, how often did you have a drink containing alcohol: never Score interpretation: A score less than 4 is consistent with normal alcohol consumption. Smoking status: Former smoker Non-prescribed substance use: denies use Highest level of school completed/degree received: high school graduate Little interest or pleasure in doing things: not at all Feeling down, depressed, or hopeless: not at all Exam Narrative Exam Narrative: Prior to examining the patient, I have washed with hospital approved and provided Antiseptic Hand Body Piercer and have also applied gloves.? Prior to touching the patient, I asked for consent to examine the patient.? General: Alert and oriented, well nourished, mild distress. Mild hard of hearing Eye: PERRL, EOMI, normal conjunctiva. Bilateral arcus analysis. HENT: Normocephalic, normal hearing, moist oral mucosa, no scleral icterus, no sinus tenderness. Lungs: Clear to auscultation and percussion, non-labored respiration. Speaks in full sentences. Heart: Normal rate, regular rhythm, no murmur, gallop or edema. Patient is wearing compression stockings Abdomen: Soft, tender in the suprapubic area without any guarding or rebound, non-distended, normal bowel sounds, no masses. Patient has a penile indwelling Cyr catheter. Musculoskeletal: Normal range of motion and strength, no tenderness or swelling. Skin: Skin is warm, dry and pink, no rashes or lesions. Neurologic: Awake, alert, and oriented X3, CN II-XII intact. Psychiatric: Cooperative, appropriate mood and affect.? Following the conclusion of the examination, I have washed my hands thoroughly after removing examination gloves. Constitutional Vital Signs, click to edit/add: Last Vital Signs Temp 98.2 F 10/01/24 19:34 Pulse 70 10/01/24 22:50 Resp 23 H 10/01/24 22:50 BP 132/63 10/01/24 21:30 Pulse Ox 97 10/01/24 19:34 O2 Del Method Room Air 10/01/24 19:34 Course Course Hospital Course: I personally saw the patient upon arrival with the EMS staff. After initially seeing the patient the patient will receive the continuous bladder irrigation and obtain a CBC and a BMP. Ultimately I think the patient is going to have to be transferred to an outside facility with a higher level of care since we do not have urology, anesthesia, or general surgery coverage. Reevaluation(s) Reevaluation #1: Nurse informed me that the patient again was complaining of back pain this time it is radiating from the back of the shoulders down to his low back. I went and did a repeat physical examination on him. He is having reproducible pain to the trapezius muscle distribution on the left side. Patient stated that usually where his pain is although he has never had this type of pain before. The patient is denying any chest pain or abdominal pain other than the suprapubic pain which is what he came in with when he was retaining urine. Repositioning the patient did improve his discomfort. Time: 21:47 Vital Signs Vital signs: Vital Signs Blood Pressure 128/70 10/01/24 19:30 Temperature 98.2 F 10/01/24 19:34 Pulse Rate 70 10/01/24 22:50 Respiratory Rate 23 H 10/01/24 22:50 Blood Pressure 132/63 10/01/24 21:30 Pulse Oximetry 97 10/01/24 19:34 Oxygen Delivery Method Room Air 10/01/24 19:34 MDM - Male Genitourinary Medical Records Attestation: I reviewed the patient's medical records. Medical records narrative: Although not my patient, and family with the patient's last emergency department visit and subsequent hospitalization. Lab Data Attestation: I reviewed the patient's lab results. Lab results narrative: Patient. Laboratories reviewed. His last 1 g of hemoglobin since his problem has started. Labs: Lab Results 10/01/24 10/01/24 Range/Units 20:02 21:40 WBC 5.0 (4.0-11.0) 10^3/uL RBC 3.93 L (4.70-6.10) 10^6/uL Hgb 10.8 L (14.0-18.0) g/dL Hct 33.4 L (42.0-54.0) % MCV 85.0 (80.0-94.0) fL MCH 27.5 (25.9-34.0) pg MCHC 32.3 (29.9-35.2) g/dL RDW 16.2 H (11.0-15.0) % Plt Count 264 (150-450) 10^3/uL MPV 9.2 L (9.5-13.5) fL Neut % (Auto) 52.5 (43.0-75.0) % Lymph % (Auto) 36.0 (20.5-60.0) % [place] % (Auto) 7.5 (1.7-12.0) % Eos % (Auto) 3.0 (0.9-7.0) % Baso % (Auto) 0.8 (0.2-2.0) % Neut # (Auto) 2.6 (1.4-6.5) 10^3/uL Lymph # (Auto) 1.8 (1.2-3.8) 10^3/uL [place] # (Auto) 0.4 (0.3-0.8) 10^3/uL Eos # (Auto) 0.2 (0.0-0.7) 10^3/uL Baso # (Auto) 0.0 (0.0-0.1) 10^3/uL Abs Immat Gran (auto) 0.01 (0.00-0.03) 10^3/uL Imm/Tot Granulo (auto) 0.2 (0.0-0.5) % Sodium 139 (136-145) mmol/L Potassium 4.0 (3.5-5.1) mmol/L Chloride 102 (98-107) mmol/L Carbon Dioxide 29.7 (21.0-32.0) mmol/L Anion Gap 11.3 BUN 23.0 H (7.0-18.0) mg/dL Creatinine 0.72 (0.70-1.30) mg/dL Est GFR ( Amer) >60 (>=60 mL/min/1.73m^2) Est GFR (Non-Af Amer) >60 (>=60 mL/min/1.73m^2) BUN/Creatinine Ratio 31.9 Glucose 167 H (74-106) mg/dL Calcium 9.2 (8.5-10.1) mg/dL Troponin I High Sens 5.8 6.2 (4.0-76.1) pg/mL ECG Data Attestation: I personally reviewed and interpreted this ECG as follows: (Sinus rhythm with a rate of 61 bpm. NC interval and QRS duration are within normal limits. QTc is not prolonged. No evidence of ST segment elevation or depression. Artifact) ECG interpretation date: 10/01/24 ECG interpretation time: 21:09 Interpretation: Patient does have a Holter monitor on Discharge Plan Discharge Chief Complaint: Urogenital-Male Clinical Impression: Musculoskeletal back pain Hematuria Qualifiers: Hematuria type: gross Qualified Code(s): R31.0 - Gross hematuria Prescriptions / Home Meds: No Action atorvastatin 40 mg tablet 40 mg PO DAILY Brilinta 90 mg tablet 90 mg PO BID gabapentin 100 mg capsule 100 mg PO TID melatonin 3 mg capsule 6 mg PO DAILY pantoprazole [Protonix] 40 mg tablet,delayed release (DR/EC) 40 mg PO .q24 tamsulosin 0.4 mg capsule 0.4 mg PO .qhs trazodone 50 mg tablet 25 mg PO DAILY magnesium hydroxide [Dulcolax (magnesium hydroxide)] 400 mg/5 mL suspension 5 ml PO .qhs PRN (Reason: constipation) magnesium oxide 400 mg magnesium capsule 400 mg PO DAILY metoprolol succinate 50 mg tablet extended release 24 hr 50 mg PO QDAY polyethylene glycol 3350 [ClearLax] 17 gram/dose powder 17 g PO DAILY sennosides [Senna Lax] 8.6 mg tablet 17.2 mg PO DAILY sennosides-docusate sodium [Senna with Docusate Sodium] 8.6-50 mg tablet 1 tab-cap PO DAILY insulin lispro [Admelog SoloStar U-100 Insulin] 100 unit/mL insulin pen 1 sliding scale dose SUBCUT ACHS cefuroxime axetil 500 mg tablet 500 mg PO BID 7 Days Qty: 14 0RF aspirin 81 mg tablet,delayed release (DR/EC) 81 mg PO .QD (DME) insulin syringe-needle U-100 1 mL 30 gauge X 7/16 syringe MISCELLANEOUS insulin glargine [Lantus Solostar U-100 Insulin] 100 unit/mL (3 mL) insulin pen 15 unit SUBCUT .QHS (DME) FreeStyle Kathie 2 Sensor Kit MISCELLANEOUS (DME) FreeStyle Kathie [address] [place] [facility] [place]OUS Print Language: Liberian Referrals: Vinnie Garza DO [Primary Care Provider] - 1 week Procedures ED Procedure Instructions Procedures Procedures: The nursing staff is performing continuous bladder irrigation on the patient to try to dislodge any clots and make the patient more comfortable.
[2024-10-01] MEDS: SODIUM CHLORIDE IRRIG SOLUTION 3,000 ML 3000 ML IRR ×4 (19:45→23:49)
--- NOTE | 2024-10-01 20:08 | PC.NURSE ---
PT HAS INCREASED CHRONIC HEMATURIA WITH INTERMITTENT BLOOD CLOTS. [facility]BI INITIATED
--- NOTE | 2024-10-01 20:45 | ECG_ITS ---
[facility] Test Date: 2024-10-01 Pat Name: VASHTI MASSEY Department: Room: - Gender: Male Trip Rider: : 1955 Requested By: ELEAZAR MAYORGA Order Number: [id number] Reading MD: ELEAZAR MAYORGA Measurements Intervals [place] Rate: 61 P: 16 [place]: 162 QRS: -26 QRSD: 108 T: 19 QT: 406 QTc: 409 Interpretive Statements 1100 Sinus rhythm 5211 Minimal voltage criteria for LVH, may be normal variant 9150 abnormal ECG Compared to ECG 06/05/2024 18:42:25 Myocardial infarct finding now present Electronically Signed On 10-02-2024 8:57:40 EST by ELEAZAR MAYORGA
[2024-10-01 20:59] LABS: Basophils Percent Auto 0.8 % (0.2-2.0); Eosinophils Absolute Auto 0.2 10^3/uL (0.0-0.7); Hematocrit 33.4 % (42.0-54.0); Hemoglobin 10.8 g/dL (14.0-18.0); Immature Granulocytes Abs Auto 0.01 10^3/uL (0.00-0.03); Immature Granulocytes Pct Auto 0.2 % (0.0-0.5); Lymphocytes Absolute Auto 1.8 10^3/uL (1.2-3.8); Mean Corpuscular HGB Conc 32.3 g/dL (29.9-35.2); Mean Corpuscular Hemoglobin 27.5 pg (25.9-34.0); Mean Platelet Volume 9.2 fL (9.5-13.5); Monocytes Absolute Auto 0.4 10^3/uL (0.3-0.8); Monocytes Percent Auto 7.5 % (1.7-12.0); Neutrophils Absolute Auto 2.6 10^3/uL (1.4-6.5); Neutrophils Percent Auto 52.5 % (43.0-75.0); Platelet Count 264 10^3/uL (150-450); Red Blood Count 3.93 10^6/uL (4.70-6.10); Red Cell Distribution Width 16.2 % (11.0-15.0)
[2024-10-01 21:03] LABS: Anion Gap 11.3; BUN Creatinine Ratio 31.9; Calcium 9.2 mg/dL (8.5-10.1); Carbon Dioxide 29.7 mmol/L (21.0-32.0); Chloride 102 mmol/L (98-107); Estimated GFR (African America >60 (>=60 mL/min/1.73m^2); Estimated GFR (Non-African Ame >60 (>=60 mL/min/1.73m^2); Glucose 167 mg/dL (74-106); Sodium 139 mmol/L (136-145)
[2024-10-01] MEDS: MORPHINE SULFATE 2 MG/ML SYRINGE IV (21:13)
[2024-10-01 21:16] LABS: Troponin I High Sensitivity 5.8 pg/mL (4.0-76.1)
[2024-10-01 22:09] LABS: Troponin I High Sensitivity 6.2 pg/mL (4.0-76.1)
[2024-10-02] VITALS (9 sets, daily range): PULSE 62–84
--- NOTE | 2024-10-04 09:35 | SWNOTE1 ---
BRENDA received message from Jessica at [facility] and they were requesting dc summary from ED for continuity of care. BRENDA faxed to Jessica.
== END 2024-10-02 03:18 | disposition short-term general hospital (02) ==
PROVIDERS: Emergency Provider Emergency Medicine; PCP Internal Medicine
DX: R31.0 Gross hematuria (principal); M54.89 Other dorsalgia; Z86.73 Personal history of transient ischemic attack (TIA), and cerebral infarction without residual deficits; Z96.652 Presence of left artificial knee joint; Z87.891 Personal history of nicotine dependence
CPT/HCPCS: 36415; 80048; 84484; 85025; 93005; 96374; 99285; J2270

== ENCOUNTER 2024-10-28 04:25 | Observation (INO) | payer MEDICARE, SELFPAY ==
[2024-10-28] VITALS (9 sets, daily range): BP systolic 121–130; BP diastolic 71–84; PULSE 70–91; TEMP 36.4–36.7; O2SAT 92–98; BMI 27.0; BMI 28.4
--- OUTSIDE RECORDS SUMMARY | 2024-10-28 04:32 | XMS_ITS | CCD ---
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[employer] Name Role Phone MUKESH, DR BUSH Primary Care Unavailable BALL, DR BUSH Attending Unavailable BALL, DR BUSH Admitting Unavailable BALL, DR BUSH Primary Care Unavailable BALL, DR BUSH Attending Unavailable BALL, DR BUSH Admitting Unavailable Ball , Vinnie Graham Primary Care Provider Vinnie Mayorga Unavailable JASON RODRIGUEZ Attending Unavailable SARAH BARRETT Attending Unavailable VINNIE MAYORGA Primary Care Unavailable INPATIENT, TELENEUROLOGY Consulting Unavail able ABEBE ROLLINS Admitting Unavailab KLAUS Boyd Referring Unavailable VINNIE MAYORGA Primary Care Unavailable SARAH BARRETT Attending Unavailable SARAH BARRETT Referring Unavailable VINNIE MAYORGA Primary Care Unavailable HAMMAD PATEL Attending Unavailable HAMMAD PATEL Referring Unavailable VINNIE MAYORGA Primary Care Unavailable KONG GALLEGOS Attending Unavailable KONG GALLEGOS Referring Unavailable VINNIE MAYORGA Primary Care Unavailable KONG GALLEGOS Attending Unavailable KONG GALLEGOS Referring Unavailable VINNIE MAYORGA Primary Care Unavailable KLAUS YEBOAH Referring Unavailable VINNIE MAYORGA Primary Care Unavailable MUKESH, VINNIE Graham Primary Care Unavailable YUDELKA PARIKH Attending Unavailable MIRNA BAJWA Consulting Unavailable EMILIA JEFFREY Admitting Unavailable YUDELKA LICEA Consulting Unavailable YUDELKA PARIKH Attending Unavailable YUDELKA PARIKH Referring Unavailable VINNIE MAYORGA Primary Care Unavailable YUDELKA PARIKH Attending Unavailable YUDELKA PARIKH Referring Unavailable MUKESH, VINNIE Graham Primary Care Unavailable MUKESH, VINNIE Graham Primary Care Unavailable GOLIVERBROOK Attending Unavailable GOLIVERBROOK Attending Unavailable GOLBROOK OLIVA Referring Unavailable MUKESH, VINNIE Graham Primary Care Unavailable MUKESH, VINNIE Graham Primary Care Unavailable MOUNIKA MENDOZA Attending Unavailable ALLY EASTON Admitting Unavailable BALL, VINNIE E Referring Unavailable BALL, VINNIE E Primary Care Unavailable VOKLAUS ROGERS Attending Unavailable BALL, VINNIE E Referring Unavailable BALL, VINNIE E Primary Care Unavailable VOVOS, KLAUS J Referring Unavailable BALL, VINNIE E Primary Care Unavailable VOVOSKLAUS J Attending Unavailable VOVOS, KLAUS Lopez Referring Unavailable BALL, VINNIE E Primary Care [...] Primary Care Unavailable ERINN ZUÑIGA Attending Unavailable Mukesh ESTRADA, Vinnie Graham Primary Care Provider Unavailable Primary Care Provider UnavailVinnie Grayson MD Primary Care Provider GRICELDA PEREA Admitting Unavailable GRICELDA PEREA Attending Unavailable KONG DAVIDSON Consulting Unavailable Ridge Juany Admitting Unavailable Mauro Mcdonald Consulting Unavailable Ball, Vinnie Primary Care Unavailable Bryson Chavez Attending Unavailable Alma Glass Consulting Unavailable FordNadia Consulting Unavailable Sharmaine Jimenez Consulting Unavailable Dionte Rizvi Consulting Unavailable Addy Portillo Consulting Unavailable Ester Carlos Consulting Unavailable Luis Cherry Consulting Unavailable Dionte Pereira Consulting Unavailable Kong Davidson Consulting Unavailable Jarocho Post Consulting Unavail able Yamila Roman Consulting Unavailable Donna Griffin Consulting Unavailable Gerard Platt II Consulting Unavaila Ricardo Santana Consulting Unavailable Lisset Wilson Consulting Unavailable Clayton Aden Consulting Unavailable Skylar Fam Consulting Unavailable Eduar Lawrence Consulting Unavailable Kong Menezes Consulting UnavailCollin Valdez Consulting Unavailable Shanice Adames Consulting Unavailable Crystal Bradford Consulting Unavailable Alexandra Loya Consulting Unavailable VINNIE MAYORGA Primary Care Physician JAROCHO POST Attending Unavail able JAROCHO POST Attending Unavail able Dionte Pereira Referring Unavailable Dionte Pereira Attending Unavailable Addy PORTILLO Attending Unavailable Addy PORTILLO Referring Unavailable Allergies Allergy Classification Reported Allergen(s) Allergy Type Date of Onset Reaction(s) Facility (1 source) No Known Medication Allergies; 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: [No Known Medication Allergies] Propensity to adverse reactions (disorder) [facility] Repository Medications Current Medications Medication Drug Class(es) Dates Sig (Normalized) Sig (Original) acetaminophen 325 mg oral tablet (4 sources) Start: 10-02-2024 Start: 10-02-2024 take 1 tablet by piyush every six hours as needed 650 mg, oral, Every 6 hours PRN, pain mild (1-3), first line, pain moderate (4-6), first line, headaches, Starting on 10/02/24 at 0607, If ordered PRN for pain, nurse is permitted to administer this medication for higher pain scores based on patient preference? Yes take 2 tablets by mo uth every eight hours as needed for pain acetaminophen (TYLENOL EXTRA STRENGTH) 500 mg tablet Take 2 tablets (1,000 mg total) by mouth every 8 (eight) hours as needed for pain. Active aspirin 81 mg oral capsule (18 sources) Platelet Aggregation Inhibitor, Nonsteroidal Anti-inflammatory Drug Start: 10-25-2024 take 1 mg by mouth every twenty-four hours aspirin 81 mg oral capsule mg cap(s), Oral, q24hr, Refills(s) 0 Start Date: 10/25/24 Status: Ordered Start: 10-30-2023 take 81 mg by mouth once daily 81 mg, oral, Daily, First dose (after last modification) on Fri10/05/24 at 0900, Do not crush, chew, or split. bisacodyl 5 mg delayed release oral tablet (1 source) Stimulant Laxative Start: 10-02-2024 take 1 dose by mouth every hour 10 mg, oral, Daily, First dose on 10/02/24 at 0900, Do not give within 1 hour of antacids, milk, or dairy products. Do not crush, chew, or split. Blood-Glucose Meter,Continuous (Freestyle Kathie 3 [place]) misc (2 sources) Start: 03-01-2024 Blood-Glucose Meter,Continuous (Freestyle Kathie 3 [place]) misc Active 0 .Route 1 March 01, 2024 12:00am to test daily Blood-Glucose Sensor (Freestyle Kathie 3 Sensor) device (2 sources) Start: 03-01-2024 Blood-Glucose Sensor (Freestyle Kathie 3 Sensor) device Active 0 .Route 2 March 01, 2024 12:00am to test blood sugar daily cefuroxime 500 mg oral tablet (2 sources) Cephalosporin Antibacterial Start: 09-30-2024 End: 10-06-2024 take 1 tablet by mouth twice daily cefuroxime (Ceftin) 500 mg tablet Take 1 tablet (500 mg) by mouth 2 times a day. 10/01/2024 10/06/2024 Discontinued (Stop Taking at Discharge) clopidogrel 75 mg oral tablet (6 sources) [...] tablet 1 10/30/2023 12/11/2023 Discontinued (Therapy completed) docusate sodium 50 mg / sennosides, jail 8.6 mg oral tablet (3 sources) take 1 tablet by piyush th once daily at bedtime sennosides-docusate sodium (Marilin-Colace) 8.6-50 mg tablet Take 1 tablet by mouth once daily at bedtime. Active take 1 tablet by piyush th in the morning sennosides-docusate sodium (SENNA WITH D OCUSATE SODIUM) 8.6-50 mg Take 1 tablet by mouth in the morning. Active doxycycline hyclate 100 mg oral capsule (1 source) Tetracycline-class Drug Start: 03-26-2024 take 100 mg by mouth twice daily Doxycycline Hyclate Active 100 MG PO Twice daily 14 March 26, 2024 12:00am finasteride 5 mg oral tablet (1 source) 5-alpha Reductase Inhibitor Start: 10-25-2024 finasteride 5 mg Tab 30 tab(s), 0 Refill(s), Refills(s) 0 Start Date: 10/25/24 Status: Ordered FreeStyle Kathie 2 [place] - (4 sources) Start: 11-26-2023 FreeStyle Kathie 2 [place] - Use to test home BS transcutaneous 4x daily for 365 days Oct, Active FreeStyle Kathie 2 Sensor - (4 sources) Start: 11-26-2023 FreeStyle Kathie 2 Sensor - Use to check home BS transcutaneous 4x daily for 30 days Oct, Active gabapentin 100 mg oral capsule (5 sources) Anti-epileptic Agent Start: 10-25-2024 gabapentin 100 mg Cap 90 EA, 0 Refill(s), Refills(s) 0 Start Date: 10/25/24 Status: Ordered Start: 04-21-2024 take 1 capsule by [facility] three times daily 100 mg, oral, 3 times daily, First dose on Fri10/04/24 at 1600, Capsules may be opened and sprinkled on food (eg, applesauce, orange juice, pudding gadoterate meglumine (Dotarem) 0.5 mmol/mL contrast injection 17 mL (1 source) Start: 10-04-2024 inject 17 mL intravenously once 17 mL, intravenous, Once in imaging, Starting on Fri10/04/24 at 1413, For 1 dose, Administer undiluted as rapid I.V. bolus injection glucagon (rdna) 1 mg injection (2 sources) Antihypoglycemic Agent Start: 10-02-2024 1 mg, intramuscular, Every 15 min PRN, blood glucose 41 to 70 mg/dL - see comments, For blood glucose 41 to 70 mg/dL and no IV access, Starting on Fri10/02/24 at 0522, Give until blood glucose is 100 mg/dL or greater. If patient DOES NOT HAVE secure IV access & patient is unconscious, NPO or is unable to eat or drink. 50 ml glucose 500 mg/ml prefilled syringe (2 sources) Start: 10-02-2024 12.5 g, intravenous, Every 15 min PRN, For blood glucose 41 to 70 mg/dL, Starting on 10/02/24 at 0522, May repeat until blood glucose level reaches 100 mg/dL or greater. Push 2 - 3 mL/minute if patient has secure IV access. glycine 15 mg/ml irrigation solution (1 source) Start: 10-02-2024 3,000 mL, irrigation, Continuous, Starting on 10/02/24 at 1800, Bladder irrigation Insulin Admin Supplies - (2 sources) Start: [...] insulin aspart, human 100 unt/ml pen injector (6 sources) Insulin Analog Start: 01-17-2024 NovoLOG FLEXPEN 100 UNIT/ML pen INJECT 15 UNITS UNDER THE SKIN THREE TIMES DAILY 01/17/2024 Active NovoLOG FlexPen 100 UNIT/ML 15units Subcutaneous tid for 30 days Active Insulin Glargine (Lantus U-100 Insulin) 100 unit/mL solution (3 sources) Start: 01-22-2024 inject 15 [IU] by subcutaneous injection twice daily Insulin Glargine (Lantus U-100 Insulin) 100 unit/mL solution Active 15 UNIT SUBCUT Twice daily January 22, 2024 12:00am 3 ml insulin lispro 100 unt/ml pen injector (7 sources) Insulin Analog Start: 10-25-2024 Admelog SoloSt ar 100 units/mL injectable solution 3 mL, 0 Refill(s), Refills(s) 0 Start Date: 10/25/24 Status: Ordered Start: 10-02-2024 0-10 Units, guzman bcutaneous, 4 times daily before meals and nightly, First dose on 10/02/24 at 0700, Do not hold when patient is not eating, continue order as scheduled for hyperglycemia management. Insulin Lispro Corrective Scale #2 Hypoglycemia protocol Call LIP unit(s) if Blood Glucose is between 0 - 70 mg/dL 0 unit(s) if Blood glucose is between 71-150 2 unit(s) if Blood glucose is between 151-200 4 unit(s) if Blood glucose is between 201-250 6 unit(s) if Blood glucose is between 251-300 8 unit(s) if Blood glucose is between 301-350 10 unit(s) if Blood glucose is between 351-400 Notify provider unit(s) if Blood Glucose is greater than 400 mg/dL Start: 10-29-2023 insulin lispro (HumaLOG) 100 unit/mL insulin pen Inject 2-10 Units under the skin 4 (four) times a day with meals and nightly. 151-200, give 2 units. 201-250, give 4 units. 251-300, give 6 units. 301-350, give 8 units. 351-400, give 10 units. 15 mL 12 10/29/2023 Active insulin lispro 1 00 unit/mL injection Inject under the skin 3 times daily (morning, midday, late afternoon). per sliding scale: 151-200 = 2 units 201-250 = 4 units 251-300 = 6 units 301-350 = 8 units 351-400 = 10 units >400 = call Active insulin lispro (HumaLOG) 100 unit/mL insulin [...] Active losartan potassium 25 mg oral tablet (5 sources) Angiotensin 2 Receptor Michael Start: 01-23-2024 losartan (Cozaar) 25 MG tablet Daily 01/23/2024 Active magnesium hydroxide 80 mg/ml oral suspension (4 sources) Start: 10-04-2024 take 5 mL by mouth every twenty-four hours as needed take 5 mL by mouth e very twenty-four hours as needed magnesium hydroxide (Milk of Magnesia) 4 00 mg/5 mL suspension Take 5 mL by mouth once daily as needed for constipation. Active magnesium oxide 400 mg oral tablet (4 sources) Start: 10-04-2024 take 400 mg by mouth once daily 400 mg, oral, Daily, First dose on Fri10/04/24 at 1600 Start: 10-03-2024 Start: 10-03-2024 End: 10-03-2024 take 400 mg by mouth once 400 mg, oral, Once, On Sun 1 12/04/23 at 1130, For 1 dose melatonin 3 mg oral tablet (5 sources) Start: 06-05-2024 take 3 mg by mouth once daily as needed for sleep 3 mg, oral, Nightly PRN, sleep, insomnia, Starting on 10/02/24 at 0607 take 2 tablets by mo uth once daily at bedtime melatonin (Melatin) 3 mg tablet Take 2 tablets (6 mg) by mouth once daily at bedtime. Active take 2 tablets by mouth once mabel ly melatonin (CIRCADIN) tablet Indications: insomnia Take 2 tablets (6 mg total) by mouth nightly Indications: difficulty sleeping. Active meloxicam 15 mg oral tablet (3 sources) Nonsteroidal Anti-inflammatory Drug Start: 12-30-2023 take 1 tablet by mouth in the morning meloxicam (Mobic) 15 MG tablet Take 15 mg by mouth in the morning. 12/30/2023 Active METOPROL SUC 50MG ER TAB (1 source) Start: 10-25-2024 METOPROL SUC 50MG ER TAB METOPROL SUC 50MG ER TAB Start Date: 10/25/24 Status: Ordered 24 hr metoprolol succinate 50 mg extended release oral tablet (3 sources) beta-Adrenergic Michael Start: 09-29-2024 50 mg, oral, Daily, First dose on Fri10/04/24 at 1600, Hold for systolic less than 100mmhg or heart rate less than 60 bpm Do not crush or chew. mupirocin 0.02 mg/mg topical ointment (1 source) RNA Synthetase Inhibitor Antibacterial Start: 03-26-2024 Mupirocin Active 1 APPLIC TOPICAL Twice daily 17 08March 26, 2024 12:00am 24 hr nicotine 0.292 mg/hr transdermal system (4 sources) Cholinergic Nicotinic Agonist Start: 11-27-2024 End: 12-11-2024 nicotine (Nicoderm CQ) 7 mg/24 hr patch Indications: Tobacco use Place 1 patch over 24 hours on the skin once daily for 14 doses. Do not fill before November 27, 2024. 11/27/2024 12/11/2024 Active Start: 11-13-2024 End: 11-27-2024 apply 1 dose transdermal route every twenty-four hours nicotine (Nicoderm CQ) 14 mg/24 hr patch Indications: Tobacco use Place 1 patch over 24 hours on the skin once daily for 14 doses. Do not fill before November 13, 2024. 11/13/2024 11/27/2024 Active Start: 10-06-2024 End: 11-13-2024 nicotine (Nicoderm CQ) 21 mg /24 hr patch Indications: Tobacco use Place 1 patch over 24 hours on the skin once daily for 38 doses. 10/06/2024 11/13/2024 Active Start: 10-02-2024 End: 11-13-2024 nicotine (Nicoderm CQ) 21 mg /24 hr patch 1 patch POLYETHYLENE GLYCOL 3350 (3 sources) Osmotic Laxative Start: 10-02-2024 Start: 10-02-2024 17 g, oral, Da cameron, First dose on 10/02/24 at 0900 sennosides, jail 8.6 mg oral tablet (3 sources) Start: 10-02-2024 Start: 10-02-2024 take 1 tablet by [facility] once daily 17.2 mg (2 tablet), oral, Daily, First dose on 10/02/24 at 0900 take 2 tablets by [facility] once daily sennosides (Senokot) 8.6 mg tablet Take 2 tablets (17.2 mg) by mouth once daily. Active tamsulosin hydrochloride 0.4 mg oral capsule (3 sources) alpha-Adrenergic Michael Start: 10-25-2024 tamsu losin 0.4 mg Cap 30 cap(s), 0 Refill(s), Refills(s) 0 Start Date: 10/25/24 Status: Ordered Start: 10-02-2024 take 1 capsule by [facility] once daily at mealtime 0.4 mg, oral, Daily, First dose on 10/02/24 at 0900, Give 30 minutes after the same mealtime each day. Capsules should be swallowed whole; do not crush, chew, or open. ticagrelor 90 mg oral tablet (5 sources) Start: 10-25-2024 Brilinta (zohra grelor) 90 mg oral tablet 28 tab(s), 0 Refill(s), Refills(s) 0 Start Date: 10/25/24 Status: Ordered Start: 10-05-2024 take 90 mg by mouth twice daily 90 mg, oral, 2 times daily, First dose (after last modification) on Fri10/05/24 at 0900 Start: 06-12-2024 take 1 tablet by mouth once ti cagrelor (BRILINTA) 90 mg tablet Take 1 tablet (90 mg total) by mouth every 12 (twelve) hours. 60 tablet 5 06/12/2024 Active traMADol hydrochloride 50 mg oral tablet (2 sources) Opioid Agonist take 1 tablet by mouth every six hours as needed for pain traMADoL (ULTRAM) 50 mg tablet Take 1 tablet (50 mg total) by mouth every 6 (six) hours as needed for pain. Active traZODone hydrochloride 50 mg oral tablet (5 sources) Serotonin Reuptake Inhibitor Start: 10-25-2024 traZODONE 50 mg Tab Refills(s) 0 Start Date: 10/25/24 Status: Ordered Start: 10-04-2024 take 25 mg by mouth once daily 25 mg, oral, Nightly, First dose on Fri10/04/24 at 2100 take 0.5 tablet by m outh once daily at bedtime traZODone (Desyrel) 50 mg tablet Take 0.5 tablets (25 mg) by mouth once daily at bedtime. Active Completed/Discontinued Medications Medication Drug Class(es) Dates Sig (Normalized) Sig (Original) atorvastatin 40 mg oral tablet (18 sources) HMG-CoA Reductase Inhibitor Start: 10-25-2024 atorvastatin 40 mg Tab 30 EA, 0 Refill(s), TAKE 1 TABLET BY MOUTH EVERY DAY, Refills(s) 0 Start Date: 10/25/24 Status: Ordered Start: 10-29-2023 take 40 mg by mouth once daily 40 mg, oral, Nightly, First dose on Fri10/04/24 at 2100 carvedilol 3.125 mg oral tablet (4 sources) [...] prior to bkfst for 90 May, Not-Taking/PRN hydrOXYzine hydrochloride 50 mg oral tablet (3 sources) Antihistamine Start: 10-03-2024 End: 10-03-2024 take 50 mg by mouth once 50 mg, oral, Once, On 10/03/24 at 1500, For 1 dose take 1 tablet by piyush th every six hours as needed for anxiety hydrOXYzine (ATARAX) 25 mg tablet Take 1 tablet (25 mg total) by mouth every 6 (six) hours as needed for anxiety. Active 3 ml insulin glargine 100 unt/ml pen injector (15 sources) Insulin Analog Start: 10-25-2024 Lantus Solosta r Pen 100 units/mL subcutaneous solution 15 mL, 0 Refill(s), ADMINISTER 15 UNITS UNDER THE SKIN AT BEDTIME, Refills(s) 0 Start Date: 10/25/24 Status: Ordered Start: 10-04-2024 inject 15 [IU] by guzman bcutaneous injection once daily 15 Units, subcutaneous, Nightly, First dose on Fri10/04/24 at 2100 Start: 04-21-2024 inject 0.15 mL by guzman bcutaneous injection once daily insulin glargine (LANTUS U-100 INSULIN) 100 unit/mL injection Inject 0.15 mL (15 Units total) under the skin nightly. 10 mL 2 04/21/2024 Active Start: 12-01-2023 Lantus SoloSta r 100 UNIT/ML [...] units Subcutaneous bid for 30 days Active lisinopril 5 mg oral tablet (4 sources) [...] evening meal for 90 *Pick strength-form from SignNow for eRX* 07 Jun, 2021 Not-Taking/PRN NovoLIN [...] evening meal for 30 *Pick strength-form from [employer]Now for eRX* 15 Jul, 2020 Not-Taking/PRN pantoprazole 40 mg delayed release oral tablet (3 sources) Proton Pump Inhibitor Start: 10-25-2024 take 1 tablet by mouth once daily in the morning Pantoprazole [address] Tab 145 EA, 0 Refill(s), TABLET 1 TABLET BY MOUTH TWICE DAILY BEFORE MEALS FOR 50 DAYS THEN 1 EVERY MORNING THERAFTER, Refills(s) 0 Start Date: 10/25/24 Status: Ordered Start: 10-02-2024 take 40 mg by mouth once daily before breakfast 40 mg, oral, Daily before breakfast, First dose on Fri10/02/24 at 0700, Do not crush, chew, or split. 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] Onset: 10-28-2023 10-31-2023 Chronic Acute cerebrovascular disease (1 source) Acute cerebrovascular disease Onset: 04-09-2024 Acute posthemorrhagic anemia (1 source) Acute posthemorrhagic anemia; 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: [Acute posthemorrhagic anemia] Onset: 10-06-2024 Episodic Bacterial infection; unspecified site (2 sources) Bacterial infection, unspecified; 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: [Extended spectrum beta lactamase (ESBL) resistance] Onset: 10-06-2024 Episodic Cardiac dysrhythmias (1 source) Ventricular tachycardia Onset: 08-12-2024 10-25-2024 Chronic Chronic kidney disease (1 source) Chronic kidney disease 10-25-2024 Chronic Deficiency and other anemia (3 sources) Anemia, unspecified; 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: [Anemia, unspecified] Onset: 04-09-2024 Episodic Deficiency and other anemia (1 source) Iron deficiency anemia, unspecified; 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: [Iron deficiency anemia, unspecified] Onset: 04-18-2024 Episodic Deficiency and other anemia (3 sources) Anemia; 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: [Anemia, unspecified] Onset: 04-10-2024 04-18-2024 Episodic Diabetes mellitus with complications (20 sources) Type 2 diabetes mellitus; 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: [Type 2 diabetes mellitus with hyperglycemia] Onset: 10-28-2023 10-28-2023 Chronic Diabetes mellitus without complication (2 sources) Type 2 diabetes mellitus without complications; 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: [Type 2 diabetes mellitus without complications] Onset: 11-05-2023 Chronic Disorders of lipid metabolism (20 sources) Mixed hyperlipidemia; 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: [Mixed hyperlipidemia] Onset: 10-28-2023 10-28-2023 Chronic Essential hypertension (15 sources) Essential hypertension; 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: [Essential (primary) hypertension] Onset: 09-29-2024 Chronic Fluid and electrolyte disorders (4 sources) Hyponatremia; 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: [Hypo-osmolality and hyponatremia] Onset: 05-28-2024 05-28-2024 Episodic Genitourinary symptoms and ill-defined conditions (11 sources) Blood in urine; 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: [Hematuria, unspecified] Onset: 10-02-2024 10-04-2024 Episodic Headache; including migraine (1 source) Headache Onset: 05-12-2024 Episodic Headache; including migraine (1 source) Headache; including migraine; 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: [Headache, unspecified] Onset: 05-12-2024 Hyperplasia of prostate (3 sources) Benign prostatic hyperplasia with lower urinary tract symptoms; 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: [Benign prostatic hypertrophy with outflow obstruction] Onset: 10-06-2024 Chronic Late effects of cerebrovascular disease (6 sources) Sequela of cerebrovascular accident; 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: [Unspecified sequelae of cerebral infarction] Onset: 12-11-2023 12-11-2023 Chronic Osteoarthritis (11 sources) Arthritis of right knee; 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: [Unilateral primary osteoarthritis, right knee] Onset: 12-30-2023 12-30-2023 Chronic Other aftercare (4 sources) Long-term current use of insulin; 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] Episodic Other aftercare (4 sources) intermediate (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 insulin; 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: [intermediate (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 insulin] Onset: 10-28-2023 Episodic Other aftercare (1 source) Long-term current use of anticoagulant; 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] Onset: 10-25-2024 Episodic Other and ill-defined cerebrovascular disease (1 source) Cerebrovascular disease; 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: [Other cerebrovascular vasospasm and vasoconstriction] 10-31-2023 Chronic Other and ill-defined cerebrovascular disease (8 sources) Cerebral atherosclerosis; 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: [Cerebral atherosclerosis] 01-22-2024 [...] and neuritis, unspecified] Onset: 04-10-2024 Episodic Other diseases of kidney and ureters (1 source) Cyst of kidney, acquired; 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: [Cyst of kidney, acquired] Onset: 10-06-2024 Episodic Other diseases of kidney and ureters (1 source) 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; 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: [Cyst of kidney, acquired] Onset: 10-25-2024 Episodic Other diseases of kidney and ureters (1 source) Complex renal cyst 10-25-2024 Episodic Other gastrointestinal disorders (2 sources) Constipation; 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: [Constipation, unspecified] Onset: 10-02-2024 10-02-2024 Episodic Other nutritional; endocrine; and metabolic disorders (1 source) Hypomagnesemia; 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: [Hypomagnesemia] Onset: 10-06-2024 Chronic Other screening for suspected conditions (not mental disorders or infectious disease) (1 source) Other specified abnormal findings of blood chemistry; 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: [Other specified abnormal findings of blood chemistry] Onset: 04-09-2024 Episodic Paralysis (1 source) Hemiplegia of left nondominant side Onset: 09-28-2024 10-25-2024 Chronic Residual codes; unclassified (1 source) Pain, unspecified; 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: [Pain, unspecified] Onset: 06-05-2024 Episodic Residual codes; unclassified (3 sources) Urinary catheter in situ; 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: [Presence of other specified devices] Onset: 10-02-2024 10-04-2024 Episodic Residual codes; unclassified (2 sources) Tobacco use and exposure - finding; 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: [Tobacco use] Onset: 10-02-2024 10-05-2024 Episodic Residual codes; unclassified (2 sources) Presence of other specified devices; 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: [Presence of other specified devices] Onset: 10-02-2024 Episodic Residual codes; unclassified (1 source) Tobacco use; 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: [Tobacco use] Onset: 10-02-2024 Episodic Substance-related disorders (13 sources) Nicotine dependence; 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: [Nicotine dependence, cigarettes, uncomplicated] Chronic Superficial injury; contusion (9 sources) Contusion of right wrist, initial encounter; 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: [Contusion of right hand, initial encounter] Episodic Unclassified (1 source) Abnormal Lab Onset: 05-27-2024 Unclassified (1 source) Blurred Vision, Facial Droop Onset: 10-26-2023 Unclassified (1 source) Head Injury With LOC Onset: 06-05-2024 Unclassified (1 source) Drug therapy finding 10-25-2024 Urinary tract infections (1 source) Urinary tract infection, site not specified; 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: [Urinary tract infection, site not specified] Onset: 10-06-2024 Episodic Past or Other Problems Problem Classification Problem Date Documented Date Episodic/Chronic Acute and unspecified renal failure (5 sources) Acute kidney failure, unspecified; 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: [Wxace-cy-bgnwdis renal failure] Onset: 04-09-2024 04-09-2024 Episodic Blindness and vision defects (9 sources) Blurring of visual image; 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: [Other visual disturbances] Onset: 10-26-2023 10-28-2023 Episodic Intracranial injury (2 sources) Traumatic cerebral edema; 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: [Traumatic cerebral edema with unknown loss of consciousness status] Onset: 06-05-2024 06-05-2024 Episodic Malaise and fatigue (3 sources) Weakness; 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: [Asthenia] Onset: 05-27-2024 05-27-2024 Episodic Mood disorders (4 sources) Mood disorders Onset: 12-11-2023 12-11-2023 Other circulatory disease (2 sources) History of cerebrovascular accident; 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: [Personal history of transient ischemic attack (TIA), and cerebral infarction without residual deficits] Onset: 05-27-2024 05-27-2024 Episodic Other connective tissue disease (2 sources) Neurological symptom; 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: [Unspecified symptoms and signs involving the nervous system] Onset: 04-09-2024 04-10-2024 Episodic Other nervous system disorders (5 sources) Abnormal gait; 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: [Unsteadiness on feet] Onset: 12-11-2023 12-11-2023 Episodic Other nervous system disorders (1 source) Unsteadiness on feet; 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: [Unsteadiness on feet] Onset: 12-11-2023 Episodic Other non-traumatic joint disorders (4 sources) Pain in right knee; 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: [Pain in joint, lower leg] Onset: 12-30-2023 12-30-2023 Episodic Residual codes; unclassified (6 sources) Altered mental status; 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: [Altered mental status, unspecified] Onset: 10-26-2023 10-28-2023 Episodic Residual codes; unclassified (2 sources) Transient alteration of awareness; 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: [Transient alteration of awareness] Onset: 10-28-2023 12-11-2023 Episodic Residual codes; unclassified (1 source) Altered mental status, unspecified; 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: [Altered mental status, unspecified] Onset: 10-28-2023 Episodic Residual codes; unclassified (1 source) Hallucinations Onset: 10-26-2023 Episodic Residual codes; unclassified (1 source) Pain Onset: 12-30-2023 Episodic Results Test Name Value Interpretation Reference Range Facility Ambulatory Visit Summaryon 1 Ambulatory Visit Summary Ambulatory Visit Summary VASHTI MASSEY :1955 Visit Date:10/25/2024 Ambulatory Visit Instructions Your Diagnosis Gross hematuria BPH with urinary obstruction Complex renal cyst History of UTI Anticoagulated Your Care Team Attending Physician - SHANNON TOWNSEND, JAROCHO Primary Care Physician - VINNIE MAYORGA DO This Is Your Medications List Contact prescribing physician if questions or concerns Misc Prescription (METOPROL SUC 50MG ER TAB) acetaminophen (acetaminophen 325 mg Tab) aspirin (aspirin 81 mg oral capsule) atorvastatin (atorvastatin 40 mg Tab) cefuroxime (cefuroxime 500 mg oral tablet) finasteride (finasteride 5 mg Tab) gabapentin (gabapentin 100 mg Cap) insulin glargine (Lantus Solostar Pen 100 units/mL subcutaneous solution) insulin lispro (Admelog SoloStar 100 units/mL injectable solution) magnesium oxide melatonin (melatonin 3 mg Tab) metoprolol (metoprolol succinate 50 mg ER Tab) pantoprazole (Pantoprazole [address] Tab) polyethylene glycol 3350 senna (senna 8.6 mg Tab) tamsulosin (tamsulosin 0.4 mg Cap) ticagrelor (Brilinta (ticagrelor) 90 mg oral tablet) trazodone (traZODONE 50 mg Tab) Procedures Performed History of operative procedure on knee, History of repair of musculotendinous cuff of shoulder. Discharge Vitals Heart Rate (Peripheral) 72 Blood Pressure 123/70 Weight 83.0 kg Weight 182.983 lb What to do next Scheduled Follow-Up Appointments Friday 3:00 PM EDT With: JAROCHO POST MD Where: [facility] [address] [place] [address]- You Need to Schedule the Following Appointments Follow Up with JAROCHO POST MD, VAN When: Where: Medications What How Much When Instructions Unchanged acetaminophen (acetaminophen 325 mg Tab) 650 Unknown, Oral, 5 Refill(s) Contact prescribing physician if questions or concerns Unchanged aspirin (aspirin 81 mg oral capsule) By Mouth Every 24 hours Contact prescribing physician if questions or concerns Unchanged atorvastatin (atorvastatin 40 mg Tab) 30 EA, 0 Refill(s), TAKE 1 TABLET BY MOUTH EVERY DAY Contact prescribing physician if questions or concerns Unchanged cefuroxime (cefuroxime 500 mg oral tablet) Oral, 0 Refill(s) Contact prescribing physician if questions or concerns Unchanged finasteride (finasteride 5 mg Tab) 30 tab(s), 0 Refill(s) Contact prescribing physician if questions or concerns Unchanged gabapentin (gabapentin 100 mg Cap) 90 EA, 0 Refill(s) Contact prescribing physician if questions or concerns Unchanged insulin glargine (Lantus Solostar Pen 100 units/ mL subcutaneous solution) 15 mL, 0 Refill(s), ADMINISTER 15 UNITS UNDER THE SKIN AT BEDTIME Contact prescribing physician if questions or concerns Unchanged insulin lispro (Admelog SoloStar 100 units/ mL injectable solution) 3 mL, 0 Refill(s) Contact prescribing physician if questions or concerns Unchanged magnesium oxide 400 Unknown, Oral, 0 Refill(s) Contact prescribing physician if questions or concerns Unchanged melatonin (melatonin 3 mg Tab) 3 Unknown, Oral, 1 Refill(s) Contact prescribing physician if questions or concerns Unchanged metoprolol (metoprolol succinate 50 mg ER Tab) Oral, 1 Refill(s) Contact prescribing physician if questions or concerns Unchanged Misc Prescription (METOPROL SUC 50MG ER TAB) 0 Contact prescribing physician if questions or concerns Unchanged pantoprazole (Pantoprazole [address] Tab) 145 EA, 0 Refill(s), TABLET 1 TABLET BY MOUTH TWICE DAILY BEFORE MEALS FOR 50 DAYS THEN 1 EVERY MORNING THERAFTER Contact prescribing physician if questions or concerns Unchanged polyethylene glycol 3350 17 Unknown, Oral, 2 Refill(s) Contact prescribing physician if questions or concerns Unchanged senna (senna 8.6 mg Tab) 17.2 Unknown, Oral, 3 Refill(s) Contact prescribing physician if questions or concerns Unchanged tamsulosin (tamsulosin 0.4 mg Cap) 30 cap(s), 0 Refill(s) Contact prescribing physician if questions or concerns Unchanged ticagrelor (Brilinta (ticagrelor) 90 mg oral tablet) 28 tab(s), 0 Refill(s) Contact prescribing physician if questions or concerns Unchanged trazodone (traZODONE 50 mg Tab) Contact prescribing physician if questions or concerns Allergies No Known Medication Allergies Problems Ongoing - Any problem that you are currently receiving treatment for. Anemia Anticoagulated Arthritis of right knee BPH with urinary obstruction Cerebral atherosclerosis Chronic kidney disease Complex renal cyst Essential hypertension Gross hematuria Hemiplegia of left nondominant side History of UTI Mixed hyperlipidemia Thrombotic stroke Type 2 diabetes mellitus Ventricular tachycardia Patient Survey You may receive a survey via text or e-mail asking about your office visit. Please share your experience with us by completing your guzman (more content not included)... Normal [facility] Urology Office/Clinic Noteon 10-25-2024 Urology Office/Clinic Note Urology Office/Clinic Note Chief Complaint new patient [facility] Staff 69 year old male new patient here for follow up to [facility] consult by Dr. Pereira due to gross hematuria. S/P cysto, bilateral retrograde pyelogram, bladder fulguration and clot evacuation 10/06/24 Patient has chronic indwelling cyr catheter since around March after he had a stroke- started on finasteride due to his hypervascular prostate. History of Present Illness Tests reviewed: reviewed UA, PSA, UCx, labs, ER records, other external records. I have reviewed the previous health record information and history for this patient from external provider I have reviewed and verified the staff HPI to be accurate for this encounter. There have been no associated fever, chills, flank pain, or blood in the urine. Denies any urinary infections since last encounter. Review of Systems ROS - Provider Constitutional: denies weight loss, denies hot flashes. Eyes: denies eye problems. Gastrointestinal: denies nausea, denies vomiting. Cardiovascular: denies chest pain or angina. Integumentary: no dryness Musculoskeletal: denies musculoskeletal symptoms. ENMT: denies otolaryngeal symptoms. Respiratory: no shortness of breath. Heme/Lymph: denies easy bleeding tendency, denies easy bruising tendency. Psychiatric: no confusion, no anxiety. Genitourinary: See HPI. Physical Exam Vitals & Measurements HR: 72(Peripheral) BP: 123/70 WT: 83.0 kg WT: 182.983 lb General Appearance: alert, no distress, well nourished, well developed male. Head: normocephalic . Eyes: normal orbit and globe. ENMT: normal examination of external ears. Bladder: cyr in place. Penis: normal shaft, normal glans, cyr in place. Psychiatric: cooperative, affect appropriate for age, normal judgement, euthymic mood. Assessment/Plan 69 yo male new to our office here for f/up to recent [facility] admission. Hx of T2DM, HTN, smoker, CVA on Brilinta, and chronic indwelling Cyr catheter, severe UR. Wheelchair bound. Resides at [facility], plan is to be released at home once he recovers. Pt accompanied by daughter today. Portions of this record may have been created with voice recognition artificial intelligence software, specifically Draft, TrewCap and or PenteoSurround. Substitutions may have occurred due to the inherent limitations of voice recognition and artificial intelligence software. 1. Gross hematuria (R31.0: Gross hematuria) Cyr was placed after pt had a stroke. Likely placed for convenience. Pt presented to [facility] ER 10/06/24 due to gross hematuria and clot retention. CT Abdomen 10/06/24 - Cyr catheter in good position. Small clot burden in bladder. Renal function 10/06/24 ~Cr 0.68. eGFR >60 Dr. Pereira consulted 10/08/24 ~has had two admissions over the past couple weeks for gross hematuria with clot retention. He was discharged from [facility] in [place] 1 day prior to admission to [facility]. Has not seen a urologist as an outpatient. S/p cysto, BL RPG, bladder fulguration, clot evacuation 10/06/24 ~neg for b.t. Grade 3 trabeculation. 20 Fr three-way Cyr catheter was placed. Urology consult note 10/10/24 Dr. Pereira ~hgb slightly improved over the past 2 days. Continue Finasteride 5mg qd and Cyr catheter upon discharge. Exchange Cyr [id number]. MRI of kidney to further eval complex cyst. Urology consult note 10/12/24 Dr. Portillo due to pt being concerned about why he was at [facility] vs [facility]. Dr. Portillo agreed with Dr. Pereira's plan. F/up as scheduled with urologist in the outpatient setting. Gross hematuria likely secondary to enlarged prostate. -See #2 2. BPH with urinary obstruction (N40.1: Benign prostatic hyperplasia with lower urinary tract symptoms) PSA 04/17/15 - 1.36 08/25/17 - 1.74 09/11/18 - 1.67 10/02/19 - 1.85 02/23/21 - 2.33 S/p cysto, BL RPG, bladder fulguration, clot evacuation 10/06/24 ~prostate is enlarged with bilobar hyperplasia. Started on Finasteride by Dr. Pereira for his hypervascular prostate. Discussed the risk of pt going into UR if we remove Cyr today. Discussed the need for an outlet procedure in the future, would benefit from TURP. High risk due to cardiac status. Pt and his daughter agree to keep Cyr in place for the next few months. They understand the need for monthly cyr exchanges. -Cyr to remain in place, orders for cyr to be changed qmonthly -F/up in 3 months 3. Complex renal cyst (N28.1: Cyst of kidney, acquired) CT Abdomen 10/06/24 - complex 9 mm LUP cystic lesion. Dr. Pereira recommended an MRI of the large left complex renal cyst. -Discuss further at next f/up 4. History of UTI (Z87.440: Personal history of urinary (tract) infections) UCx 10/09/24 - Klebsiella pneumoniae (ESBL) R to Cefazolin, Cefepime, Cefuroxime, Cipro, Levofloxacin, Nitrofurantoin, >100k Providencia stuartii. R to Cipro, Gentamicin, Levofloxacin, Tobramycin. See #1. Likely due to colonization from Cyr catheter. 5. An (more content not included)... Normal [facility] Comment on above: Result Comment: Elec tronically Signed By: JAROCHO POST MD\.br\Date and Time Signed: 10/25/24 11:39 EST\.br\Electronically Co-Signed By: Simin Covarrubias\.br\Date and Time Co-Signed: 10/25/24 11:28 EST Glucose Poct Glucometerson 1 12-13-2023 Glucose [Mass/Vol] 155 mg/dL Normal [facility] Comment on above: Result Comment: [place] Glucose Reference Range is dependent on time and content of last meal. Glucose of more than 200 mg/dL in a nonstressed, ambulatory subject supports the diagnosis of Diabetes Mellitus. PERFORMED BY: [place] [address] PATHOLOGIST [employer] VENUS NORIEGA M.D. Performed By: #### C K, LIPASE, CBC, BMP, BNP, HEPATIC, HS TROP #### [address] Commemt1 Glu2: Cleaned Meter Normal [facility] Comment on above: Result Comment: PERF ORMED BY: [place] [address] PATHOLOGIST SUPER[employer] VENUS NORIEGA M.D. Performed By: #### C K, LIPASE, CBC, BMP, BNP, HEPATIC, HS TROP #### [address] Glucose [Mass/Vol] 230 mg/dL Normal [facility] Comment on above: Result Comment: [place] om Glucose Reference Range is dependent on time and content of last meal. Glucose of more than 200 mg/dL in a nonstressed, ambulatory subject supports the diagnosis of Diabetes Mellitus. Performed By: #### C K, LIPASE, CBC, BMP, BNP, HEPATIC, HS TROP #### [address] Commemt1 Glu2: Cleaned Meter Normal [facility] Comment on above: Result Comment: PERF ORMED BY: [place] [address] PATHOLOGIST SUPER[employer] VENUS NORIEGA M.D. Performed By: #### G LULS #### Point of Care testing , Glucose [Mass/Vol] 138 mg/dL Normal [facility] Comment on above: Result Comment: [place] Glucose Reference Range is dependent on time and content of last meal. Glucose of more than 200 mg/dL in a nonstressed, ambulatory subject supports the diagnosis of Diabetes Mellitus. Performed By: #### G LULS #### Point of Care testing , Complete Blood Count Auto Di ffon 10-11-2024 Basophils (Bld) [#/Vol] 0.1 10*3/uL Normal 0.0-0.2 [facility] Comment on above: Result Comment: PERF ORMED BY: [place] [address] PATHOLOGIST SUPER[employer] VENUS NORIEGA M.D. Performed By: #### C K, LIPASE, CBC, BMP, BNP, HEPATIC, HS TROP #### [place] [address] [place] Basophils/100 WBC (Bld) 1.7 % Normal . [facility] Comment on above: Performed By: #### C K, LIPASE, CBC, BMP, BNP, HEPATIC, HS TROP #### [place] [address] [place] Eosinophils (Bld) [#/Vol] 0.2 10*3/uL Normal 0.0-0.45 [facility] Comment on above: Performed By: #### C K, LIPASE, CBC, BMP, BNP, HEPATIC, HS TROP #### [address] Eosinophils/100 WBC (Bld) 5.4 % Normal . [facility] Comment on above: Performed By: #### C K, LIPASE, CBC, BMP, BNP, HEPATIC, HS TROP #### [address] Erythrocyte distribution width (RBC) [Ratio] 17.3 % High 12.0-14.8 [facility] Comment on above: Performed By: #### C K, LIPASE, CBC, BMP, BNP, HEPATIC, HS TROP #### [address] Hematocrit (Bld) [Volume fraction] 26.5 % Low 38.8-50.0 [facility] Comment on above: Performed By: #### C K, LIPASE, CBC, BMP, BNP, HEPATIC, HS TROP #### [address] Hemoglobin (Bld) [Mass/Vol] 9.3 g/dL Low 13.0-17.0 [facility] Comment on above: Performed By: #### C K, LIPASE, CBC, BMP, BNP, HEPATIC, HS TROP #### [address] Lymphocytes (Bld) [#/Vol] 1.5 10*3/uL Normal 1.00-4.8 [facility] Comment on above: Performed By: #### C K, LIPASE, CBC, BMP, BNP, HEPATIC, HS TROP #### [address] Lymphocytes/100 WBC (Bld) 43.4 % Normal . [facility] Comment on above: Performed By: #### C K, LIPASE, CBC, BMP, BNP, HEPATIC, HS TROP #### [place] [address] [place] MCH (RBC) [Entitic mass] 28.4 pg Normal 27.5-35.2 [facility] Comment on above: Performed By: #### C K, LIPASE, CBC, BMP, BNP, HEPATIC, HS TROP #### [address] MCV (RBC) [Entitic vol] 81.2 fL Low 83.5-101 [facility] Comment on above: Performed By: #### C K, LIPASE, CBC, BMP, BNP, HEPATIC, HS TROP #### [address] Mean Corpuscular HGB Conc 35.0 g/dL Normal 32.5-35.6 [facility] Comment on above: Performed By: #### C K, LIPASE, CBC, BMP, BNP, HEPATIC, HS TROP #### [address] Monocytes (Bld) [#/Vol] 0.3 10*3/uL Normal 0.0-0.8 [facility] Comment on above: Performed By: #### C K, LIPASE, CBC, BMP, BNP, HEPATIC, HS TROP #### [address] Monocytes/100 WBC (Bld) 8.5 % Normal . [facility] Comment on above: Performed By: #### C K, LIPASE, CBC, BMP, BNP, HEPATIC, HS TROP #### [address] Neutrophils (Bld) [#/Vol] 1.4 10*3/uL Low 1.8-7.7 [facility] Comment on above: Performed By: #### C K, LIPASE, CBC, BMP, BNP, HEPATIC, HS TROP #### [address] Neutrophils/100 WBC (Bld) 41.0 % Normal . [facility] Comment on above: Performed By: #### C K, LIPASE, CBC, BMP, BNP, HEPATIC, HS TROP #### [address] NRBC% 0.1 /100{WBC} Normal 0-0.5 [facility] Comment on above: Performed By: #### C K, LIPASE, CBC, BMP, BNP, HEPATIC, HS TROP #### [address] Platelet mean volume (Bld) [Entitic vol] 7.1 fL Normal 6.6-10.1 [facility] Comment on above: Performed By: #### C K, LIPASE, CBC, BMP, BNP, HEPATIC, HS TROP #### [address] Platelets (Bld) [#/Vol] 293 10*3/uL Normal 150-450 [facility] Comment on above: Performed By: #### C K, LIPASE, CBC, BMP, BNP, HEPATIC, HS TROP #### [address] RBC (Bld) [#/Vol] 3.26 10*6/uL Low 3.90-5.60 [facility] Comment on above: Performed By: #### C K, LIPASE, CBC, BMP, BNP, HEPATIC, HS TROP #### [address] WBC (Bld) [#/Vol] 3.5 10*3/uL Low 4.1-10.5 [facility] Comment on above: Performed By: #### C K, LIPASE, CBC, BMP, BNP, HEPATIC, HS TROP #### [address] Comprehensive Metabolic Pane [place] 10-11-2024 Albumin [Mass/Vol] 3.7 g/dL Normal 3.5-5.7 [facility] Comment on above: Performed By: #### C K, LIPASE, CBC, BMP, BNP, HEPATIC, HS TROP #### [address] Albumin/Globulin [Mass ratio] 1.5 {ratio} Normal [facility] Comment on above: Performed By: #### C K, LIPASE, CBC, BMP, BNP, HEPATIC, HS TROP #### [address] ALP [Catalytic activity/Vol] 67 U/L Normal 34-104 [facility] Comment on above: Performed By: #### C K, LIPASE, CBC, BMP, BNP, HEPATIC, HS TROP #### [address] ALT [Catalytic activity/Vol] 9 U/L Normal 7-52 [facility] Comment on above: Performed By: #### C K, LIPASE, CBC, BMP, BNP, HEPATIC, HS TROP #### [address] Anion gap [Moles/Vol] 9.9 mmol/L Normal 6.0-15.0 [facility] Comment on above: Performed By: #### C K, LIPASE, CBC, BMP, BNP, HEPATIC, HS TROP #### [address] AST [Catalytic activity/Vol] 8 U/L Low 13-39 [facility] Comment on above: Performed By: #### C K, LIPASE, CBC, BMP, BNP, HEPATIC, HS TROP #### [address] Bilirubin [Mass/Vol] 0.4 mg/dL Normal 0.3-1.0 [facility] Comment on above: Performed By: #### C K, LIPASE, CBC, BMP, BNP, HEPATIC, HS TROP #### [address] Calcium [Mass/Vol] 8.9 mg/dL Normal 8.6-10.3 [facility] Comment on above: Performed By: #### C K, LIPASE, CBC, BMP, BNP, HEPATIC, HS TROP #### [address] Chloride [Moles/Vol] 102 mmol/L Normal 98-107 [facility] Comment on above: Performed By: #### C K, LIPASE, CBC, BMP, BNP, HEPATIC, HS TROP #### [address] CO2 [Moles/Vol] 28.3 mmol/L Normal 21.0-31.0 [facility] Comment on above: Performed By: #### C K, LIPASE, CBC, BMP, BNP, HEPATIC, HS TROP #### [address] Creatinine [Mass/Vol] 0.54 mg/dL Low 0.70-1.30 [facility] Comment on above: Performed By: #### C K, LIPASE, CBC, BMP, BNP, HEPATIC, HS TROP #### [address] Creatinine Clr Calc Pharmacy 95.93 Normal [facility] Comment on above: Performed By: #### C K, LIPASE, CBC, BMP, BNP, HEPATIC, HS TROP #### [address] GFR/1.73 sq M.predicted MDRD (S/P/Bld) [Vol rate/Area] mL/min/{1.73_m2} Normal [facility] Comment on above: Performed By: #### C K, LIPASE, CBC, BMP, BNP, HEPATIC, HS TROP #### [address] Globulin (S) [Mass/Vol] 2.4 g/dL Normal [facility] Comment on above: Performed By: #### C K, LIPASE, CBC, BMP, BNP, HEPATIC, HS TROP #### [address] Glucose [Mass/Vol] 123 mg/dL High 70-100 [facility] Comment on above: Result Comment: [place] Glucose Reference Range is dependent on time and content of last meal. Glucose of more than 200 mg/dL in a nonstressed, ambulatory subject supports the diagnosis of Diabetes Mellitus. ADA recommended reference range Performed By: #### C K, LIPASE, CBC, BMP, BNP, HEPATIC, HS TROP #### [address] Potassium [Moles/Vol] 4.2 mmol/L Normal 3.5-5.1 [facility] Comment on above: Performed By: #### C K, LIPASE, CBC, BMP, BNP, HEPATIC, HS TROP #### [address] Protein [Mass/Vol] 6.1 g/dL Low 6.4-8.9 [facility] Comment on above: Performed By: #### C K, LIPASE, CBC, BMP, BNP, HEPATIC, HS TROP #### [address] [address] Sodium [Moles/Vol] 136 mmol/L Normal 136-145 [facility] Comment on above: Performed By: #### C K, LIPASE, CBC, BMP, BNP, HEPATIC, HS TROP #### [address] Urea nitrogen [Mass/Vol] 11 mg/dL Normal 7-25 [facility] Comment on above: Performed By: #### C K, LIPASE, CBC, BMP, BNP, HEPATIC, HS TROP #### [address] Glucose Poct Glucometerson 1 12-12-2023 Glucose [Mass/Vol] 206 mg/dL Normal [facility] Comment on above: Result Comment: [facility] Glucose Reference Range is dependent on time and content of last meal. Glucose of more than 200 mg/dL in a nonstressed, ambulatory subject supports the diagnosis of Diabetes Mellitus. PERFORMED BY: [place] [address] PATHOLOGIST [employer] VEN[employer] NORIEGA M.D. Performed By: #### C K, LIPASE, CBC, BMP, BNP, HEPATIC, HS TROP #### [address] Glucose [Mass/Vol] 178 mg/dL Normal [facility] Comment on above: Result Comment: [facility] Glucose Reference Range is dependent on time and content of last meal. Glucose of more than 200 mg/dL in a nonstressed, ambulatory subject supports the diagnosis of Diabetes Mellitus. PERFORMED BY: [place] [address] PATHOLOGIST SU[employer] NORIEGA M.D. Performed By: #### G ELAINE #### Point of Care testing , Glucose [Mass/Vol] 204 mg/dL Normal [facility] Comment on above: Result Comment: [place] [facility] Glucose Reference Range is dependent on time and content of last meal. Glucose of more than 200 mg/dL in a nonstressed, ambulatory subject supports the diagnosis of Diabetes Mellitus. PERFORMED BY: [place] [address] PATHOLOGIST SUPER[employer] NOR[employer]GA M.D. Performed By: #### C K, LIPASE, CBC, BMP, BNP, HEPATIC, HS TROP #### [address] Glucose [Mass/Vol] 146 mg/dL Normal [facility] Comment on above: Result Comment: [place] Glucose Reference Range is dependent on time and content of last meal. Glucose of more than 200 mg/dL in a nonstressed, ambulatory subject supports the diagnosis of Diabetes Mellitus. PERFORMED BY: [place] [address] PATHOLOGIST SU[employer]GA M.D. Performed By: #### C K, LIPASE, CBC, BMP, BNP, HEPATIC, HS TROP #### [address] Magnesiumon 10-11-2024 Magnesium [Mass/Vol] 1.8 mg/dL Low 1.9-2.7 [facility] Comment on above: Result Comment: PERF ORMED BY: [place] [address] PATHOLOGIST SU[employer]GA M.D. Performed By: #### C K, LIPASE, CBC, BMP, BNP, HEPATIC, HS TROP #### [address] US venous duplex UE LTon US venous duplex UE LT [facility] Main [place] [address] [place] [address] Ultrasound Report Signed Patient: Vashti Massey MR#: [id number] : 1955 Acct:[id number] Age/Sex: 69 / M ADM Date: 10/06/24 Loc: Room: [address] [place] [address] Type: ADM IN Attending Dr: Bryson Chavez MD Ordering Provider: Erinn Lundberg MD Date of Service: 10/09/24 US/US venous duplex UE LT: left arm swelling Copies to: MD rEinn Hutchinson MD Left upper extremity venous duplex examination Indication for study: Swollen left arm PROCEDURE: Color-flow duplex scanning is used to interrogate the venous anatomy of the left upper extremity. The left jugular vein is compressible with good color flow. The right and left subclavian veins and the left axillary vein show good compressibility, color-flow, and augmentation. The paired brachial veins, basilic vein, and cephalic vein all compress. US/US venous duplex UE LT IMPRESSION: No evidence for deep vein thrombosis or superficial thrombophlebitis in the left upper extremity Impression dictated by: Javier Maria M.D.10/11/2024 10:33 AM Dictation Location: [place] [address] Tech: Colleen Ferreira Transcribed By: CALVIN 10/11/24 1033 Dictated By: Javier Maria MD 10/11/24 1033 Signed By: 10/11/24 1033 Normal [facility] Complete Blood Count Auto Di ffon 10-10-2024 Basophils (Bld) [#/Vol] 0.1 10*3/uL Normal 0.0-0.2 [facility] Comment on above: Result Comment: PERF ORMED BY: [place] [address] PATHOLOGIST SUPER[employer]GA M.D. Performed By: #### C K, LIPASE, CBC, BMP, BNP, HEPATIC, HS TROP #### [address] Basophils/100 WBC (Bld) 2.1 % Normal . [facility] Comment on above: Performed By: #### C K, LIPASE, CBC, BMP, BNP, HEPATIC, HS TROP #### [address] Eosinophils (Bld) [#/Vol] 0.1 10*3/uL Normal 0.0-0.45 [facility] Comment on above: Performed By: #### C K, LIPASE, CBC, BMP, BNP, HEPATIC, HS TROP #### [address] Eosinophils/100 WBC (Bld) 3.7 % Normal . [facility] Comment on above: Performed By: #### C K, LIPASE, CBC, BMP, BNP, HEPATIC, HS TROP #### [address] Erythrocyte distribution width (RBC) [Ratio] 16.7 % High 12.0-14.8 [facility] Comment on above: Performed By: #### C K, LIPASE, CBC, BMP, BNP, HEPATIC, HS TROP #### [address] Hematocrit (Bld) [Volume fraction] 27.0 % Low 38.8-50.0 [facility] Comment on above: Performed By: #### C K, LIPASE, CBC, BMP, BNP, HEPATIC, HS TROP #### [address] Hemoglobin (Bld) [Mass/Vol] 9.3 g/dL Low 13.0-17.0 [facility] Comment on above: Performed By: #### C K, LIPASE, CBC, BMP, BNP, HEPATIC, HS TROP #### [address] Lymphocytes (Bld) [#/Vol] 1.0 10*3/uL Normal 1.00-4.8 [facility] Comment on above: Performed By: #### C K, LIPASE, CBC, BMP, BNP, HEPATIC, HS TROP #### [address] Lymphocytes/100 WBC (Bld) 32.3 % Normal . [facility] Comment on above: Performed By: #### C K, LIPASE, CBC, BMP, BNP, HEPATIC, HS TROP #### [address] MCH (RBC) [Entitic mass] 28.3 pg Normal 27.5-35.2 [facility] Comment on above: Performed By: #### C K, LIPASE, CBC, BMP, BNP, HEPATIC, HS TROP #### [address] MCV (RBC) [Entitic vol] 82.3 fL Low 83.5-101 [facility] Comment on above: Performed By: #### C K, LIPASE, CBC, BMP, BNP, HEPATIC, HS TROP #### [address] Mean Corpuscular HGB Conc 34.4 g/dL Normal 32.5-35.6 [facility] Comment on above: Performed By: #### C K, LIPASE, CBC, BMP, BNP, HEPATIC, HS TROP #### [address] Monocytes (Bld) [#/Vol] 0.2 10*3/uL Normal 0.0-0.8 [facility] Comment on above: Performed By: #### C K, LIPASE, CBC, BMP, BNP, HEPATIC, HS TROP #### [address] Monocytes/100 WBC (Bld) 7.8 % Normal . [facility] Comment on above: Performed By: #### C K, LIPASE, CBC, BMP, BNP, HEPATIC, HS TROP #### [address] Neutrophils (Bld) [#/Vol] 1.7 10*3/uL Low 1.8-7.7 [facility] Comment on above: Performed By: #### C K, LIPASE, CBC, BMP, BNP, HEPATIC, HS TROP #### [address] Neutrophils/100 WBC (Bld) 54.1 % Normal . [facility] Comment on above: Performed By: #### C K, LIPASE, CBC, BMP, BNP, HEPATIC, HS TROP #### [address] NRBC% 0.1 /100{WBC} Normal 0-0.5 [facility] Comment on above: Performed By: #### C K, LIPASE, CBC, BMP, BNP, HEPATIC, HS TROP #### [address] Platelet mean volume (Bld) [Entitic vol] 6.7 fL Normal 6.6-10.1 [facility] Comment on above: Performed By: #### C K, LIPASE, CBC, BMP, BNP, HEPATIC, HS TROP #### [address] Platelets (Bld) [#/Vol] 293 10*3/uL Normal 150-450 [facility] Comment on above: Performed By: #### C K, LIPASE, CBC, BMP, BNP, HEPATIC, HS TROP #### [address] RBC (Bld) [#/Vol] 3.28 10*6/uL Low 3.90-5.60 [facility] Comment on above: Performed By: #### C K, LIPASE, CBC, BMP, BNP, HEPATIC, HS TROP #### [address] WBC (Bld) [#/Vol] 3.1 10*3/uL Low 4.1-10.5 [facility] Comment on above: Performed By: #### C K, LIPASE, CBC, BMP, BNP, HEPATIC, HS TROP #### [address] Comprehensive Metabolic Pane delonte 10-10-2024 Albumin [Mass/Vol] 3.8 g/dL Normal 3.5-5.7 [facility] Comment on above: Performed By: #### C K, LIPASE, CBC, BMP, BNP, HEPATIC, HS TROP #### [facility] [address] Albumin/Globulin [Mass ratio] 1.7 {ratio} Normal [facility] Comment on above: Performed By: #### C K, LIPASE, CBC, BMP, BNP, HEPATIC, HS TROP #### [facility] [address] ALP [Catalytic activity/Vol] 71 U/L Normal 34-104 [facility] Comment on above: Performed By: #### C K, LIPASE, CBC, BMP, BNP, HEPATIC, HS TROP #### [address] ALT [Catalytic activity/Vol] 8 U/L Normal 7-52 [facility] Comment on above: Performed By: #### C K, LIPASE, CBC, BMP, BNP, HEPATIC, HS TROP #### [address] Anion gap [Moles/Vol] 9.6 mmol/L Normal 6.0-15.0 [facility] Comment on above: Performed By: #### C K, LIPASE, CBC, BMP, BNP, HEPATIC, HS TROP #### [address] AST [Catalytic activity/Vol] 7 U/L Low 13-39 [facility] Comment on above: Performed By: #### C K, LIPASE, CBC, BMP, BNP, HEPATIC, HS TROP #### [place] [address] [place] Bilirubin [Mass/Vol] 0.3 mg/dL Normal 0.3-1.0 [facility] Comment on above: Performed By: #### C K, LIPASE, CBC, BMP, BNP, HEPATIC, HS TROP #### [place] [address] [place] Calcium [Mass/Vol] 8.8 mg/dL Normal 8.6-10.3 [facility] Comment on above: Performed By: #### C K, LIPASE, CBC, BMP, BNP, HEPATIC, HS TROP #### [address] Chloride [Moles/Vol] 100 mmol/L Normal 98-107 [facility] Comment on above: Performed By: #### C K, LIPASE, CBC, BMP, BNP, HEPATIC, HS TROP #### [address] CO2 [Moles/Vol] 28.5 mmol/L Normal 21.0-31.0 [facility] Comment on above: Performed By: #### C K, LIPASE, CBC, BMP, BNP, HEPATIC, HS TROP #### [address] Creatinine [Mass/Vol] 0.56 mg/dL Low 0.70-1.30 [facility] Comment on above: Performed By: #### C K, LIPASE, CBC, BMP, BNP, HEPATIC, HS TROP #### [address] Creatinine Clr Calc Pharmacy 95.93 Normal [facility] Comment on above: Performed By: #### C K, LIPASE, CBC, BMP, BNP, HEPATIC, HS TROP #### [address] GFR/1.73 sq M.predicted MDRD (S/P/Bld) [Vol rate/Area] mL/min/{1.73_m2} Normal [facility] Comment on above: Performed By: #### C K, LIPASE, CBC, BMP, BNP, HEPATIC, HS TROP #### [place] [address] [place] Globulin (S) [Mass/Vol] 2.3 g/dL Normal [facility] Comment on above: Performed By: #### C K, LIPASE, CBC, BMP, BNP, HEPATIC, HS TROP #### [address] Glucose [Mass/Vol] 216 mg/dL High 70-100 [facility] Comment on above: Result Comment: [facility] Glucose Reference Range is dependent on time and content of last meal. Glucose of more than 200 mg/dL in a nonstressed, ambulatory subject supports the diagnosis of Diabetes Mellitus. ADA recommended reference range Performed By: #### C K, LIPASE, CBC, BMP, BNP, HEPATIC, HS TROP #### [address] Potassium [Moles/Vol] 4.1 mmol/L Normal 3.5-5.1 [facility] Comment on above: Performed By: #### C K, LIPASE, CBC, BMP, BNP, HEPATIC, HS TROP #### [address] Protein [Mass/Vol] 6.1 g/dL Low 6.4-8.9 [facility] Comment on above: Performed By: #### C K, LIPASE, CBC, BMP, BNP, HEPATIC, HS TROP #### [address] Sodium [Moles/Vol] 134 mmol/L Low 136-145 [facility] Comment on above: Performed By: #### C K, LIPASE, CBC, BMP, BNP, HEPATIC, HS TROP #### [address] Urea nitrogen [Mass/Vol] 12 mg/dL Normal 7-25 [facility] Comment on above: Performed By: #### C K, LIPASE, CBC, BMP, BNP, HEPATIC, HS TROP #### [address] Glucose Poct Glucometerson 1 12-11-2023 Glucose [Mass/Vol] 245 mg/dL Normal [facility] Comment on above: Result Comment: [facility] Glucose Reference Range is dependent on time and content of last meal. Glucose of more than 200 mg/dL in a nonstressed, ambulatory subject supports the diagnosis of Diabetes Mellitus. PERFORMED BY: [place] [address] PATHOLOGIST SU[employer]GA M.D. Performed By: #### C K, LIPASE, CBC, BMP, BNP, HEPATIC, HS TROP #### [address] Commemt1 Glu2: Cleaned Meter Normal [facility] Comment on above: Result Comment: PERF ORMED BY: [place] [address] PATHOLOGIST SUPER[employer]IEGA M.D. Performed By: #### C K, LIPASE, CBC, BMP, BNP, HEPATIC, HS TROP #### [address] Glucose [Mass/Vol] 240 mg/dL Normal [facility] Comment on above: Result Comment: [place] [facility] Glucose Reference Range is dependent on time and content of last meal. Glucose of more than 200 mg/dL in a nonstressed, ambulatory subject supports the diagnosis of Diabetes Mellitus. Performed By: #### C K, LIPASE, CBC, BMP, BNP, HEPATIC, HS TROP #### [address] Commemt1 Glu2: Cleaned Meter Normal [facility] Comment on above: Result Comment: PERF ORMED BY: [place] [address] PATHOLOGIST SU[employer]GA M.D. Performed By: #### C K, LIPASE, CBC, BMP, BNP, HEPATIC, HS TROP #### [address] Glucose [Mass/Vol] 223 mg/dL Normal [facility] Comment on above: Result Comment: [place] [facility] Glucose Reference Range is dependent on time and content of last meal. Glucose of more than 200 mg/dL in a nonstressed, ambulatory subject supports the diagnosis of Diabetes Mellitus. Performed By: #### C K, LIPASE, CBC, BMP, BNP, HEPATIC, HS TROP #### [address] Commemt1 Glu2: Cleaned Meter Normal [facility] Comment on above: Result Comment: PERF ORMED BY: [place] [address] PATHOLOGIST SUPER[employer]GA M.D. Performed By: #### C K, LIPASE, CBC, BMP, BNP, HEPATIC, HS TROP #### [address] Glucose [Mass/Vol] 154 mg/dL Normal [facility] Comment on above: Result Comment: [facility] Glucose Reference Range is dependent on time and content of last meal. Glucose of more than 200 mg/dL in a nonstressed, ambulatory subject supports the diagnosis of Diabetes Mellitus. Performed By: #### C K, LIPASE, CBC, BMP, BNP, HEPATIC, HS TROP #### [address] Magnesiumon 10-10-2024 Magnesium [Mass/Vol] 1.8 mg/dL Low 1.9-2.7 [facility] Comment on above: Result Comment: PERF ORMED BY: [place] [address] PATHOLOGIST SUPER[employer]GA M.D. Performed By: #### C K, LIPASE, CBC, BMP, BNP, HEPATIC, HS TROP #### [address] Complete Blood Count Auto Di ffon 10-09-2024 Basophils (Bld) [#/Vol] 0.1 10*3/uL Normal 0.0-0.2 [facility] Comment on above: Result Comment: PERF ORMED BY: [place] [address] PATHOLOGIST SU[employer]GA M.D. Performed By: #### C K, LIPASE, CBC, BMP, BNP, HEPATIC, HS TROP #### [address] Basophils/100 WBC (Bld) 1.3 % Normal . [facility] Comment on above: Performed By: #### C K, LIPASE, CBC, BMP, BNP, HEPATIC, HS TROP #### [address] Eosinophils (Bld) [#/Vol] 0.1 10*3/uL Normal 0.0-0.45 [facility] Comment on above: Performed By: #### C K, LIPASE, CBC, BMP, BNP, HEPATIC, HS TROP #### [address] Eosinophils/100 WBC (Bld) 2.7 % Normal . [facility] Comment on above: Performed By: #### C K, LIPASE, CBC, BMP, BNP, HEPATIC, HS TROP #### [address] Erythrocyte distribution width (RBC) [Ratio] 17.1 % High 12.0-14.8 [facility] Comment on above: Performed By: #### C K, LIPASE, CBC, BMP, BNP, HEPATIC, HS TROP #### [address] Hematocrit (Bld) [Volume fraction] 26.6 % Low 38.8-50.0 [facility] Comment on above: Performed By: #### C K, LIPASE, CBC, BMP, BNP, HEPATIC, HS TROP #### [address] Hemoglobin (Bld) [Mass/Vol] 9.1 g/dL Low 13.0-17.0 [facility] Comment on above: Performed By: #### C K, LIPASE, CBC, BMP, BNP, HEPATIC, HS TROP #### [address] Lymphocytes (Bld) [#/Vol] 1.2 10*3/uL Normal 1.00-4.8 [facility] Comment on above: Performed By: #### C K, LIPASE, CBC, BMP, BNP, HEPATIC, HS TROP #### [address] Lymphocytes/100 WBC (Bld) 28.2 % Normal . [facility] Comment on above: Performed By: #### C K, LIPASE, CBC, BMP, BNP, HEPATIC, HS TROP #### [address] MCH (RBC) [Entitic mass] 27.9 pg Normal 27.5-35.2 [facility] Comment on above: Performed By: #### C K, LIPASE, CBC, BMP, BNP, HEPATIC, HS TROP #### [address] MCV (RBC) [Entitic vol] 81.5 fL Low 83.5-101 [facility] Comment on above: Performed By: #### C K, LIPASE, CBC, BMP, BNP, HEPATIC, HS TROP #### [address] Mean Corpuscular HGB Conc 34.2 g/dL Normal 32.5-35.6 [facility] Comment on above: Performed By: #### C K, LIPASE, CBC, BMP, BNP, HEPATIC, HS TROP #### [address] Monocytes (Bld) [#/Vol] 0.3 10*3/uL Normal 0.0-0.8 [facility] Comment on above: Performed By: #### C K, LIPASE, CBC, BMP, BNP, HEPATIC, HS TROP #### [address] Monocytes/100 WBC (Bld) 7.3 % Normal . [facility] Comment on above: Performed By: #### C K, LIPASE, CBC, BMP, BNP, HEPATIC, HS TROP #### [address] Neutrophils (Bld) [#/Vol] 2.5 10*3/uL Normal 1.8-7.7 [facility] Comment on above: Performed By: #### C K, LIPASE, CBC, BMP, BNP, HEPATIC, HS TROP #### [address] Neutrophils/100 WBC (Bld) 60.5 % Normal . [facility] Comment on above: Performed By: #### C K, LIPASE, CBC, BMP, BNP, HEPATIC, HS TROP #### [address] NRBC% 0.1 /100{WBC} Normal 0-0.5 [facility] Comment on above: Performed By: #### C K, LIPASE, CBC, BMP, BNP, HEPATIC, HS TROP #### [address] Platelet mean volume (Bld) [Entitic vol] 7.0 fL Normal 6.6-10.1 [facility] Comment on above: Performed By: #### C K, LIPASE, CBC, BMP, BNP, HEPATIC, HS TROP #### [address] Platelets (Bld) [#/Vol] 308 10*3/uL Normal 150-450 [facility] Comment on above: Performed By: #### C K, LIPASE, CBC, BMP, BNP, HEPATIC, HS TROP #### [address] RBC (Bld) [#/Vol] 3.26 10*6/uL Low 3.90-5.60 [facility] Comment on above: Performed By: #### C K, LIPASE, CBC, BMP, BNP, HEPATIC, HS TROP #### [address] WBC (Bld) [#/Vol] 4.2 10*3/uL Normal 4.1-10.5 [facility] Comment on above: Performed By: #### C K, LIPASE, CBC, BMP, BNP, HEPATIC, HS TROP #### [address] Comprehensive Metabolic Pane delonte 10-09-2024 Albumin [Mass/Vol] 3.9 g/dL Normal 3.5-5.7 [facility] Comment on above: Performed By: #### C K, LIPASE, CBC, BMP, BNP, HEPATIC, HS TROP #### [address] Albumin/Globulin [Mass ratio] 1.8 {ratio} Normal [facility] Comment on above: Performed By: #### C K, LIPASE, CBC, BMP, BNP, HEPATIC, HS TROP #### [address] ALP [Catalytic activity/Vol] 57 U/L Normal 34-104 [facility] Comment on above: Performed By: #### C K, LIPASE, CBC, BMP, BNP, HEPATIC, HS TROP #### [address] ALT [Catalytic activity/Vol] 8 U/L Normal 7-52 [facility] Comment on above: Performed By: #### C K, LIPASE, CBC, BMP, BNP, HEPATIC, HS TROP #### [address] Anion gap [Moles/Vol] 9.3 mmol/L Normal 6.0-15.0 [facility] Comment on above: Performed By: #### C K, LIPASE, CBC, BMP, BNP, HEPATIC, HS TROP #### [address] AST [Catalytic activity/Vol] 8 U/L Low 13-39 [facility] Comment on above: Performed By: #### C K, LIPASE, CBC, BMP, BNP, HEPATIC, HS TROP #### [place] [address] [place] Bilirubin [Mass/Vol] 0.4 mg/dL Normal 0.3-1.0 [facility] Comment on above: Performed By: #### C K, LIPASE, CBC, BMP, BNP, HEPATIC, HS TROP #### [place] [address] [place] Calcium [Mass/Vol] 8.7 mg/dL Normal 8.6-10.3 [facility] Comment on above: Performed By: #### C K, LIPASE, CBC, BMP, BNP, HEPATIC, HS TROP #### [place] [address] [place] Chloride [Moles/Vol] 100 mmol/L Normal 98-107 [facility] Comment on above: Performed By: #### C K, LIPASE, CBC, BMP, BNP, HEPATIC, HS TROP #### [address] CO2 [Moles/Vol] 29.0 mmol/L Normal 21.0-31.0 [facility] Comment on above: Performed By: #### C K, LIPASE, CBC, BMP, BNP, HEPATIC, HS TROP #### [address] Creatinine [Mass/Vol] 0.63 mg/dL Low 0.70-1.30 [facility] Comment on above: Performed By: #### C K, LIPASE, CBC, BMP, BNP, HEPATIC, HS TROP #### [address] Creatinine Clr Calc Pharmacy 95.93 Normal [facility] Comment on above: Performed By: #### C K, LIPASE, CBC, BMP, BNP, HEPATIC, HS TROP #### [address] GFR/1.73 sq M.predicted MDRD (S/P/Bld) [Vol rate/Area] mL/min/{1.73_m2} Normal [facility] Comment on above: Performed By: #### C K, LIPASE, CBC, BMP, BNP, HEPATIC, HS TROP #### [address] Globulin (S) [Mass/Vol] 2.2 g/dL Normal [facility] [facility] Comment on above: Performed By: #### C K, LIPASE, CBC, BMP, BNP, HEPATIC, HS TROP #### [address] Glucose [Mass/Vol] 221 mg/dL High 70-100 [facility] Comment on above: Result Comment: [place] Glucose Reference Range is dependent on time and content of last meal. Glucose of more than 200 mg/dL in a nonstressed, ambulatory subject supports the diagnosis of Diabetes Mellitus. ADA recommended reference range Performed By: #### C K, LIPASE, CBC, BMP, BNP, HEPATIC, HS TROP #### [address] Potassium [Moles/Vol] 4.3 mmol/L Normal 3.5-5.1 [facility] Comment on above: Performed By: #### C K, LIPASE, CBC, BMP, BNP, HEPATIC, HS TROP #### [address] Protein [Mass/Vol] 6.1 g/dL Low 6.4-8.9 [facility] Comment on above: Performed By: #### C K, LIPASE, CBC, BMP, BNP, HEPATIC, HS TROP #### [address] Sodium [Moles/Vol] 134 mmol/L Low 136-145 [facility] Comment on above: Performed By: #### C K, LIPASE, CBC, BMP, BNP, HEPATIC, HS TROP #### [address] Urea nitrogen [Mass/Vol] 15 mg/dL Normal 7-25 [facility] Comment on above: Performed By: #### C K, LIPASE, CBC, BMP, BNP, HEPATIC, HS TROP #### [address] Glucose Poct Glucometerson 1 12-10-2023 Glucose [Mass/Vol] 208 mg/dL Normal [facility] Comment on above: Result Comment: [facility] Glucose Reference Range is dependent on time and content of last meal. Glucose of more than 200 mg/dL in a nonstressed, ambulatory subject supports the diagnosis of Diabetes Mellitus. PERFORMED BY: [place] [address] PATHOLOGIST [employer] VENUS NORIEGA M.D. Performed By: #### C K, LIPASE, CBC, BMP, BNP, HEPATIC, HS TROP #### [address] Glucose [Mass/Vol] 242 mg/dL Normal [facility] Comment on above: Result Comment: [place] Glucose Reference Range is dependent on time and content of last meal. Glucose of more than 200 mg/dL in a nonstressed, ambulatory subject supports the diagnosis of Diabetes Mellitus. PERFORMED BY: [place] [address] PATHOLOGIST SUPER[employer] VENUS NORIEGA M.D. Performed By: #### C K, LIPASE, CBC, BMP, BNP, HEPATIC, HS TROP #### [address] Glucose [Mass/Vol] 220 mg/dL Normal [facility] Comment on above: Result Comment: [place] om Glucose Reference Range is dependent on time and content of last meal. Glucose of more than 200 mg/dL in a nonstressed, ambulatory subject supports the diagnosis of Diabetes Mellitus. PERFORMED BY: [place] [address] PATHOLOGIST SUPER[employer] VENUS NORIEGA M.D. Performed By: #### C K, LIPASE, CBC, BMP, BNP, HEPATIC, HS TROP #### [address] Glucose [Mass/Vol] 148 mg/dL Normal [facility] Comment on above: Result Comment: [place] om Glucose Reference Range is dependent on time and content of last meal. Glucose of more than 200 mg/dL in a nonstressed, ambulatory subject supports the diagnosis of Diabetes Mellitus. PERFORMED BY: [place] [address] PATHOLOGIST SUPER[employer] VENUS NORIEGA M.D. Performed By: #### C K, LIPASE, CBC, BMP, BNP, HEPATIC, HS TROP #### [address] Magnesiumon 10-09-2024 Magnesium [Mass/Vol] 1.8 mg/dL Low 1.9-2.7 [facility] Comment on above: Result Comment: PERF ORMED BY: [place] [address] PATHOLOGIST SUPER[employer] VENUS NORIEGA M.D. Performed By: #### C K, LIPASE, CBC, BMP, BNP, HEPATIC, HS TROP #### [address] Phosphoruson 10-09-2024 Phosphate [Mass/Vol] 3.2 mg/dL Normal 2.5-4.5 [facility] Comment on above: Performed By: #### C K, LIPASE, CBC, BMP, BNP, HEPATIC, HS TROP #### [address] Complete Blood Count Auto Di ffon 10-08-2024 Basophils (Bld) [#/Vol] 0.1 10*3/uL Normal 0.0-0.2 [facility] Comment on above: Result Comment: PERF ORMED BY: [place] [address] PATHOLOGIST SUPER[employer] VENUS NORIEGA M.D. Performed By: #### C K, LIPASE, CBC, BMP, BNP, HEPATIC, HS TROP #### [address] Basophils/100 WBC (Bld) 2.5 % Normal . [facility] Comment on above: Performed By: #### C K, LIPASE, CBC, BMP, BNP, HEPATIC, HS TROP #### [address] Eosinophils (Bld) [#/Vol] 0.1 10*3/uL Normal 0.0-0.45 [facility] Comment on above: Performed By: #### C K, LIPASE, CBC, BMP, BNP, HEPATIC, HS TROP #### [address] Eosinophils/100 WBC (Bld) 3.3 % Normal . [facility] Comment on above: Performed By: #### C K, LIPASE, CBC, BMP, BNP, HEPATIC, HS TROP #### [address] Erythrocyte distribution width (RBC) [Ratio] 17.0 % High 12.0-14.8 [facility] Comment on above: Performed By: #### C K, LIPASE, CBC, BMP, BNP, HEPATIC, HS TROP #### [address] Hematocrit (Bld) [Volume fraction] 26.3 % Low 38.8-50.0 [facility] Comment on above: Performed By: #### C K, LIPASE, CBC, BMP, BNP, HEPATIC, HS TROP #### [address] Hemoglobin (Bld) [Mass/Vol] 9.0 g/dL Low 13.0-17.0 [facility] Comment on above: Performed By: #### C K, LIPASE, CBC, BMP, BNP, HEPATIC, HS TROP #### [address] Lymphocytes (Bld) [#/Vol] 1.1 10*3/uL Normal 1.00-4.8 [facility] Comment on above: Performed By: #### C K, LIPASE, CBC, BMP, BNP, HEPATIC, HS TROP #### [address] Lymphocytes/100 WBC (Bld) 39.6 % Normal . [facility] Comment on above: Performed By: #### C K, LIPASE, CBC, BMP, BNP, HEPATIC, HS TROP #### [address] MCH (RBC) [Entitic mass] 27.8 pg Normal 27.5-35.2 [facility] Comment on above: Performed By: #### C K, LIPASE, CBC, BMP, BNP, HEPATIC, HS TROP #### [address] MCV (RBC) [Entitic vol] 81.0 fL Low 83.5-101 [facility] Comment on above: Performed By: #### C K, LIPASE, CBC, BMP, BNP, HEPATIC, HS TROP #### [address] Mean Corpuscular HGB Conc 34.2 g/dL Normal 32.5-35.6 [facility] Comment on above: Performed By: #### C K, LIPASE, CBC, BMP, BNP, HEPATIC, HS TROP #### [address] Monocytes (Bld) [#/Vol] 0.2 10*3/uL Normal 0.0-0.8 [facility] Comment on above: Performed By: #### C K, LIPASE, CBC, BMP, BNP, HEPATIC, HS TROP #### [address] Monocytes/100 WBC (Bld) 7.2 % Normal . [facility] Comment on above: Performed By: #### C K, LIPASE, CBC, BMP, BNP, HEPATIC, HS TROP #### [address] Neutrophils (Bld) [#/Vol] 1.3 10*3/uL Low 1.8-7.7 [facility] Comment on above: Performed By: #### C K, LIPASE, CBC, BMP, BNP, HEPATIC, HS TROP #### [address] Neutrophils/100 WBC (Bld) 47.4 % Normal . [facility] Comment on above: Performed By: #### C K, LIPASE, CBC, BMP, BNP, HEPATIC, HS TROP #### [address] NRBC% 0.1 /100{WBC} Normal 0-0.5 [facility] Comment on above: Performed By: #### C K, LIPASE, CBC, BMP, BNP, HEPATIC, HS TROP #### [address] Platelet mean volume (Bld) [Entitic vol] 7.0 fL Normal 6.6-10.1 [facility] Comment on above: Performed By: #### C K, LIPASE, CBC, BMP, BNP, HEPATIC, HS TROP #### [address] Platelets (Bld) [#/Vol] 306 10*3/uL Normal 150-450 [facility] Comment on above: Performed By: #### C K, LIPASE, CBC, BMP, BNP, HEPATIC, HS TROP #### [address] RBC (Bld) [#/Vol] 3.24 10*6/uL Low 3.90-5.60 [facility] Comment on above: Performed By: #### C K, LIPASE, CBC, BMP, BNP, HEPATIC, HS TROP #### [address] WBC (Bld) [#/Vol] 2.7 10*3/uL Low 4.1-10.5 [facility] Comment on above: Performed By: #### C K, LIPASE, CBC, BMP, BNP, HEPATIC, HS TROP #### [address] Basophils (Bld) [#/Vol] 0.1 10*3/uL Normal 0.0-0.2 [facility] Comment on above: Result Comment: PERF ORMED BY: [place] [address] PATHOLOGIST SUPER[employer] VENUS NORIEGA M.D. Performed By: #### C K, LIPASE, CBC, BMP, BNP, HEPATIC, HS TROP #### [address] Basophils/100 WBC (Bld) 2.0 % Normal . [facility] Comment on above: Performed By: #### C K, LIPASE, CBC, BMP, BNP, HEPATIC, HS TROP #### [address] Eosinophils (Bld) [#/Vol] 0.1 10*3/uL Normal 0.0-0.45 [facility] Comment on above: Performed By: #### C K, LIPASE, CBC, BMP, BNP, HEPATIC, HS TROP #### [address] Eosinophils/100 WBC (Bld) 4.3 % Normal . [facility] Comment on above: Performed By: #### C K, LIPASE, CBC, BMP, BNP, HEPATIC, HS TROP #### [address] Erythrocyte distribution width (RBC) [Ratio] 17.1 % High 12.0-14.8 [facility] Comment on above: Performed By: #### C K, LIPASE, CBC, BMP, BNP, HEPATIC, HS TROP #### [address] Hematocrit (Bld) [Volume fraction] 26.5 % Low 38.8-50.0 [facility] Comment on above: Performed By: #### C K, LIPASE, CBC, BMP, BNP, HEPATIC, HS TROP #### [address] Hemoglobin (Bld) [Mass/Vol] 9.2 g/dL Low 13.0-17.0 [facility] Comment on above: Performed By: #### C K, LIPASE, CBC, BMP, BNP, HEPATIC, HS TROP #### [address] Lymphocytes (Bld) [#/Vol] 1.3 10*3/uL Normal 1.00-4.8 [facility] Comment on above: Performed By: #### C K, LIPASE, CBC, BMP, BNP, HEPATIC, HS TROP #### [address] Lymphocytes/100 WBC (Bld) 45.9 % Normal . [facility] Comment on above: Performed By: #### C K, LIPASE, CBC, BMP, BNP, HEPATIC, HS TROP #### [address] MCH (RBC) [Entitic mass] 28.5 pg Normal 27.5-35.2 [facility] Comment on above: Performed By: #### C K, LIPASE, CBC, BMP, BNP, HEPATIC, HS TROP #### [address] MCV (RBC) [Entitic vol] 81.8 fL Low 83.5-101 [facility] Comment on above: Performed By: #### C K, LIPASE, CBC, BMP, BNP, HEPATIC, HS TROP #### [address] Mean Corpuscular HGB Conc 34.9 g/dL Normal 32.5-35.6 [facility] Comment on above: Performed By: #### C K, LIPASE, CBC, BMP, BNP, HEPATIC, HS TROP #### [address] Monocytes (Bld) [#/Vol] 0.2 10*3/uL Normal 0.0-0.8 [facility] Comment on above: Performed By: #### C K, LIPASE, CBC, BMP, BNP, HEPATIC, HS TROP #### [address] Monocytes/100 WBC (Bld) 7.1 % Normal . [facility] Comment on above: Performed By: #### C K, LIPASE, CBC, BMP, BNP, HEPATIC, HS TROP #### [address] Neutrophils (Bld) [#/Vol] 1.1 10*3/uL Low 1.8-7.7 [facility] Comment on above: Performed By: #### C K, LIPASE, CBC, BMP, BNP, HEPATIC, HS TROP #### [address] Neutrophils/100 WBC (Bld) 40.7 % Normal . [facility] Comment on above: Performed By: #### C K, LIPASE, CBC, BMP, BNP, HEPATIC, HS TROP #### [address] NRBC% 0.1 /100{WBC} Normal 0-0.5 [facility] Comment on above: Performed By: #### C K, LIPASE, CBC, BMP, BNP, HEPATIC, HS TROP #### [facility] [address] Platelet mean volume (Bld) [Entitic vol] 7.3 fL Normal 6.6-10.1 [facility] Comment on above: Performed By: #### C K, LIPASE, CBC, BMP, BNP, HEPATIC, HS TROP #### [facility] [address] Platelets (Bld) [#/Vol] 284 10*3/uL Normal 150-450 [facility] Comment on above: Performed By: #### C K, LIPASE, CBC, BMP, BNP, HEPATIC, HS TROP #### [facility] [address] RBC (Bld) [#/Vol] 3.24 10*6/uL Low 3.90-5.60 [facility] Comment on above: Performed By: #### C K, LIPASE, CBC, BMP, BNP, HEPATIC, HS TROP #### [address] WBC (Bld) [#/Vol] 2.8 10*3/uL Low 4.1-10.5 [facility] Comment on above: Performed By: #### C K, LIPASE, CBC, BMP, BNP, HEPATIC, HS TROP #### [address] Comprehensive Metabolic Pane [place]onte 10-08-2024 Albumin [Mass/Vol] 3.8 g/dL Normal 3.5-5.7 [facility] Comment on above: Performed By: #### C K, LIPASE, CBC, BMP, BNP, HEPATIC, HS TROP #### [address] Albumin/Globulin [Mass ratio] 1.7 {ratio} Normal [facility] Comment on above: Performed By: #### C K, LIPASE, CBC, BMP, BNP, HEPATIC, HS TROP #### [address] ALP [Catalytic activity/Vol] 55 U/L Normal 34-104 [facility] Comment on above: Performed By: #### C K, LIPASE, CBC, BMP, BNP, HEPATIC, HS TROP #### [address] ALT [Catalytic activity/Vol] 8 U/L Normal 7-52 [facility] Comment on above: Performed By: #### C K, LIPASE, CBC, BMP, BNP, HEPATIC, HS TROP #### [address] Anion gap [Moles/Vol] 9.1 mmol/L Normal 6.0-15.0 [facility] Comment on above: Performed By: #### C K, LIPASE, CBC, BMP, BNP, HEPATIC, HS TROP #### [address] AST [Catalytic activity/Vol] 9 U/L Low 13-39 [facility] Comment on above: Performed By: #### C K, LIPASE, CBC, BMP, BNP, HEPATIC, HS TROP #### [address] Bilirubin [Mass/Vol] 0.4 mg/dL Normal 0.3-1.0 [facility] Comment on above: Performed By: #### C K, LIPASE, CBC, BMP, BNP, HEPATIC, HS TROP #### [address] Calcium [Mass/Vol] 8.7 mg/dL Normal 8.6-10.3 [facility] Comment on above: Performed By: #### C K, LIPASE, CBC, BMP, BNP, HEPATIC, HS TROP #### [address] Chloride [Moles/Vol] 101 mmol/L Normal 98-107 [facility] Comment on above: Performed By: #### C K, LIPASE, CBC, BMP, BNP, HEPATIC, HS TROP #### [address] CO2 [Moles/Vol] 29.9 mmol/L Normal 21.0-31.0 [facility] Comment on above: Performed By: #### C K, LIPASE, CBC, BMP, BNP, HEPATIC, HS TROP #### [address] Creatinine [Mass/Vol] 0.64 mg/dL Low 0.70-1.30 [facility] Comment on above: Performed By: #### C K, LIPASE, CBC, BMP, BNP, HEPATIC, HS TROP #### [address] Creatinine Clr Calc Pharmacy 95.88 Normal [facility] Comment on above: Performed By: #### C K, LIPASE, CBC, BMP, BNP, HEPATIC, HS TROP #### [address] GFR/1.73 sq M.predicted MDRD (S/P/Bld) [Vol rate/Area] mL/min/{1.73_m2} Normal [facility] Comment on above: Performed By: #### C K, LIPASE, CBC, BMP, BNP, HEPATIC, HS TROP #### [address] Globulin (S) [Mass/Vol] 2.2 g/dL Normal [facility] Comment on above: Performed By: #### C K, LIPASE, CBC, BMP, BNP, HEPATIC, HS TROP #### [address] Glucose [Mass/Vol] 191 mg/dL High 70-100 [facility] Comment on above: Result Comment: [facility] Glucose Reference Range is dependent on time and content of last meal. Glucose of more than 200 mg/dL in a nonstressed, ambulatory subject supports the diagnosis of Diabetes Mellitus. ADA recommended reference range Performed By: #### C K, LIPASE, CBC, BMP, BNP, HEPATIC, HS TROP #### [address] Potassium [Moles/Vol] 4.0 mmol/L Normal 3.5-5.1 [facility] Comment on above: Performed By: #### C K, LIPASE, CBC, BMP, BNP, HEPATIC, HS TROP #### [address] Protein [Mass/Vol] 6.0 g/dL Low 6.4-8.9 [facility] Comment on above: Performed By: #### C K, LIPASE, CBC, BMP, BNP, HEPATIC, HS TROP #### [address] Sodium [Moles/Vol] 136 mmol/L Normal 136-145 [facility] Comment on above: Performed By: #### C K, LIPASE, CBC, BMP, BNP, HEPATIC, HS TROP #### [address] Urea nitrogen [Mass/Vol] 20 mg/dL Normal 7-25 [facility] Comment on above: Performed By: #### C K, LIPASE, CBC, BMP, BNP, HEPATIC, HS TROP #### [address] Albumin [Mass/Vol] 3.7 g/dL Normal 3.5-5.7 [facility] Comment on above: Performed By: #### C K, LIPASE, CBC, BMP, BNP, HEPATIC, HS TROP #### [address] Albumin/Globulin [Mass ratio] 1.7 {ratio} Normal [facility] Comment on above: Performed By: #### C K, LIPASE, CBC, BMP, BNP, HEPATIC, HS TROP #### [address] ALP [Catalytic activity/Vol] 58 U/L Normal 34-104 [facility] Comment on above: Performed By: #### C K, LIPASE, CBC, BMP, BNP, HEPATIC, HS TROP #### [address] ALT [Catalytic activity/Vol] 8 U/L Normal 7-52 [facility] Comment on above: Performed By: #### C K, LIPASE, CBC, BMP, BNP, HEPATIC, HS TROP #### [address] Anion gap [Moles/Vol] 8.6 mmol/L Normal 6.0-15.0 [facility] Comment on above: Performed By: #### C K, LIPASE, CBC, BMP, BNP, HEPATIC, HS TROP #### [address] AST [Catalytic activity/Vol] 7 U/L Low 13-39 [facility] Comment on above: Performed By: #### C K, LIPASE, CBC, BMP, BNP, HEPATIC, HS TROP #### [address] Bilirubin [Mass/Vol] 0.4 mg/dL Normal 0.3-1.0 [facility] Comment on above: Performed By: #### C K, LIPASE, CBC, BMP, BNP, HEPATIC, HS TROP #### [address] Calcium [Mass/Vol] 8.6 mg/dL Normal 8.6-10.3 [facility] Comment on above: Performed By: #### C K, LIPASE, CBC, BMP, BNP, HEPATIC, HS TROP #### [address] Chloride [Moles/Vol] 100 mmol/L Normal 98-107 [facility] Comment on above: Performed By: #### C K, LIPASE, CBC, BMP, BNP, HEPATIC, HS TROP #### [address] CO2 [Moles/Vol] 29.2 mmol/L Normal 21.0-31.0 [facility] Comment on above: Performed By: #### C K, LIPASE, CBC, BMP, BNP, HEPATIC, HS TROP #### [place] [address] [place] Creatinine [Mass/Vol] 0.63 mg/dL Low 0.70-1.30 [facility] Comment on above: Performed By: #### C K, LIPASE, CBC, BMP, BNP, HEPATIC, HS TROP #### [place] [address] [place] Creatinine Clr Calc Pharmacy 95.88 Normal [facility] Comment on above: Performed By: #### C K, LIPASE, CBC, BMP, BNP, HEPATIC, HS TROP #### [facility] [address] GFR/1.73 sq M.predicted MDRD (S/P/Bld) [Vol rate/Area] mL/min/{1.73_m2} Normal [facility] Comment on above: Performed By: #### C K, LIPASE, CBC, BMP, BNP, HEPATIC, HS TROP #### [facility] [address] Globulin (S) [Mass/Vol] 2.2 g/dL Normal [facility] Comment on above: Performed By: #### C K, LIPASE, CBC, BMP, BNP, HEPATIC, HS TROP #### [facility] [address] Glucose [Mass/Vol] 136 mg/dL High 70-100 [facility] Comment on above: Result Comment: [facility] Glucose Reference Range is dependent on time and content of last meal. Glucose of more than 200 mg/dL in a nonstressed, ambulatory subject supports the diagnosis of Diabetes Mellitus. ADA recommended reference range Performed By: #### C K, LIPASE, CBC, BMP, BNP, HEPATIC, HS TROP #### [address] Potassium [Moles/Vol] 3.8 mmol/L Normal 3.5-5.1 [facility] Comment on above: Performed By: #### C K, LIPASE, CBC, BMP, BNP, HEPATIC, HS TROP #### [facility] [address] Protein [Mass/Vol] 5.9 g/dL Low 6.4-8.9 [facility] Comment on above: Performed By: #### C K, LIPASE, CBC, BMP, BNP, HEPATIC, HS TROP #### [facility] [address] Sodium [Moles/Vol] 134 mmol/L Low 136-145 [facility] Comment on above: Performed By: #### C K, LIPASE, CBC, BMP, BNP, HEPATIC, HS TROP #### [address] Urea nitrogen [Mass/Vol] 22 mg/dL Normal 7-25 [facility] Comment on above: Performed By: #### C K, LIPASE, CBC, BMP, BNP, HEPATIC, HS TROP #### [place] [address] [place] ESR (Bld) [Velocity]on 10-08 [facility] Erythrocyte Sedimentation Ra james 10-08-2024 ESR (Bld) [Velocity] 14 mm/h Normal 0-19 [facility] Comment on above: Result Comment: PERF ORMED BY: [place] [address] PATHOLOGIST SUPERVIS[employer] VENUS NORIEGA M.D. Performed By: #### C K, LIPASE, CBC, BMP, BNP, HEPATIC, HS TROP #### [address] [place] urethrocystogram retroon 10-08-2024 [place] urethrocystogram retro [facility] Main [place] [address] [place] [address] Fluoroscopy Report Signed Patient: Vashti Massey MR#: [id number] : 1955 Acct:[id number] Age/Sex: 69 / M ADM Date: 10/06/24 Loc: Room: [address] [place] [address] Type: ADM IN Attending Dr: Erinn Lundberg MD Copies to: MD Dionte Lagos MD Ordering Provider: Dionte Pereira MD Date of Service: 10/08/24 [place] urethrocystogram retro: RETROGRADE Intraoperative study. Reason for exam: Cystoscopy, bilateral retrograde Findings: 8 images were obtained intraoperatively. Contrast is seen within both collecting systems. Cumulative Air Kerma in mGy: 10 mGy [place] urethrocystogram retro Impression: Intraoperative study. Impression dictated by: Dwayne Coello Jr. D.O.10/08/2024 3:34 PM Dictation Location: [place] [address] Transcribed By: [facility] 10/08/241533 Dictated By: Dwayne Coello Jr, DO 10/08/241532 Signed By: 10/08/24 153 Normal [facility] Ferritinon 10-08-2024 Ferritin [Mass/Vol] 35.0 ng/mL Normal 23.9-336.2 [facility] Comment on above: Performed By: #### C K, LIPASE, CBC, BMP, BNP, HEPATIC, HS TROP #### [facility] [address] Glucose Poct Glucometerson 1 12-09-2023 Glucose [Mass/Vol] 238 mg/dL Normal [facility] Comment on above: Result Comment: [place] om Glucose Reference Range is dependent on time and content of last meal. Glucose of more than 200 mg/dL in a nonstressed, ambulatory subject supports the diagnosis of Diabetes Mellitus. PERFORMED BY: [place] [address] PATHOLOGIST SUPERVISOR [employer] VENUS NORIEGA M.D. Performed By: #### C K, LIPASE, CBC, BMP, BNP, HEPATIC, HS TROP #### [address] Commemt1 Glu2: Cleaned Meter Normal The [facility] Comment on above: Result Comment: PERF ORMED BY: [place] [address] PATHOLOGIST SUPERVIS[employer] V[employer] NORIEGA M.D. Performed By: #### C K, LIPASE, CBC, BMP, BNP, HEPATIC, HS TROP #### [place] [id number] [facility] Glucose [Mass/Vol] 151 mg/dL Normal [facility] Comment on above: Result Comment: [place] om Glucose Reference Range is dependent on time and content of last meal. Glucose of more than 200 mg/dL in a nonstressed, ambulatory subject supports the diagnosis of Diabetes Mellitus. Performed By: #### C K, LIPASE, CBC, BMP, BNP, HEPATIC, HS TROP #### [facility] [address] Commemt1 Glu2: Cleaned Meter Normal The [facility] Comment on above: Result Comment: PERF ORMED BY: [place] [address] PATHOLOGIST SUPER[employer] V[employer] NORIEGA M.D. Performed By: #### C K, LIPASE, CBC, BMP, BNP, HEPATIC, HS TROP #### [address] Glucose [Mass/Vol] 138 mg/dL Normal [facility] Comment on above: Result Comment: [place] Glucose Reference Range is dependent on time and content of last meal. Glucose of more than 200 mg/dL in a nonstressed, ambulatory subject supports the diagnosis of Diabetes Mellitus. Performed By: #### C K, LIPASE, CBC, BMP, BNP, HEPATIC, HS TROP #### [address] Glucose [Mass/Vol] 173 mg/dL Normal [facility] Comment on above: Result Comment: [place] Glucose Reference Range is dependent on time and content of last meal. Glucose of more than 200 mg/dL in a nonstressed, ambulatory subject supports the diagnosis of Diabetes Mellitus. PERFORMED BY: [place] [address] PATHOLOGIST SUPER[employer] VEN[employer] NORIEGA M.D. Performed By: #### C K, LIPASE, CBC, BMP, BNP, HEPATIC, HS TROP #### [address] Glucose [Mass/Vol] 139 mg/dL Normal [facility] Comment on above: Result Comment: [place] om Glucose Reference Range is dependent on time and content of last meal. Glucose of more than 200 mg/dL in a nonstressed, ambulatory subject supports the diagnosis of Diabetes Mellitus. PERFORMED BY: [place] [id number] PATHOLOGIST SUPER[employer] V[employer] NORIEGA M.D. Performed By: #### C K, LIPASE, CBC, BMP, BNP, HEPATIC, HS TROP #### [address] Iron and TIBC Profileon 09-26 % Iron Saturation 11.3 % Low 20-50 The [facility] Comment on above: Performed By: #### C K, LIPASE, CBC, BMP, BNP, HEPATIC, HS TROP #### [address] Iron [Mass/Vol] 34 ug/dL Low 50-212 The [facility] Comment on above: Performed By: #### C K, LIPASE, CBC, BMP, BNP, HEPATIC, HS TROP #### [address] Total Iron Binding Capacity 302 ug/dL Normal 255-450 The [facility] Comment on above: Performed By: #### C K, LIPASE, CBC, BMP, BNP, HEPATIC, HS TROP #### [address] Transferrin [Mass/Vol] 216 mg/dL Normal 203-362 Th e [facility] Comment on above: Performed By: #### C K, LIPASE, CBC, BMP, BNP, HEPATIC, HS TROP #### [address] Magnesiumon 10-08-2024 Magnesium [Mass/Vol] 1.7 mg/dL Low 1.9-2.7 [facility] Comment on above: Result Comment: PERF ORMED BY: [place] [address] PATHOLOGIST SUPER[employer] V[employer] NORIEGA M.D. Performed By: #### C K, LIPASE, CBC, BMP, BNP, HEPATIC, HS TROP #### [address] Magnesium [Mass/Vol] 1.7 mg/dL Low 1.9-2.7 The [facility] Comment on above: Result Comment: PERF ORMED BY: [address] [address] PATHOLOGIST SUPER[employer] NORIEGA M.D. Performed By: #### C K, LIPASE, CBC, BMP, BNP, HEPATIC, HS TROP #### [address] Sedimentation rate, automate don 10-08-2024 ESR (Bld) [Velocity] 14 mm/h 0 - 19 [facility] Vit. B12/Folate Profileon Cobalamin (Vitamin B12) [Mass/Vol] 490 pg/mL Normal 180-914 [facility] Comment on above: Performed By: #### C K, LIPASE, CBC, BMP, BNP, HEPATIC, HS TROP #### [address] Folate 10.2 ng/mL Normal >5.9 The [facility] Comment on above: Result Comment: [place] te reference range: >5.9 ng/ml The WHO technical consultation on folate and vitamin b12 deficiencies has determined that folate concentrations less than 4 ng/ml are considered deficient. PERFORMED BY: [place] [address] PATHOLOGIST SUPER[employer] NORIEGA M.D. Performed By: #### C K, LIPASE, CBC, BMP, BNP, HEPATIC, HS TROP #### [address] Basic Metabolic Panelon 09-26 Anion gap [Moles/Vol] 14.3 mmol/L Normal 6.0-15.0 [facility] Comment on above: Performed By: #### C K, LIPASE, CBC, BMP, BNP, HEPATIC, HS TROP #### [address] Calcium [Mass/Vol] 9.2 mg/dL Normal 8.6-10.3 [facility] Comment on above: Performed By: #### C K, LIPASE, CBC, BMP, BNP, HEPATIC, HS TROP #### [address] Chloride [Moles/Vol] 102 mmol/L Normal 98-107 [facility] Comment on above: Performed By: #### C K, LIPASE, CBC, BMP, BNP, HEPATIC, HS TROP #### [facility] [address] CO2 [Moles/Vol] 24.9 mmol/L Normal 21.0-31.0 The [facility] Comment on above: Performed By: #### C K, LIPASE, CBC, BMP, BNP, HEPATIC, HS TROP #### [address] Creatinine [Mass/Vol] 0.66 mg/dL Low 0.70-1.30 [facility] Comment on above: Performed By: #### C K, LIPASE, CBC, BMP, BNP, HEPATIC, HS TROP #### [address] Creatinine Clr Calc Pharmacy 94.64 Normal The [facility] Comment on above: Performed By: #### C K, LIPASE, CBC, BMP, BNP, HEPATIC, HS TROP #### [address] GFR/1.73 sq M.predicted MDRD (S/P/Bld) [Vol rate/Area] mL/min/{1.73_m2} Normal [facility] Comment on above: Performed By: #### C K, LIPASE, CBC, BMP, BNP, HEPATIC, HS TROP #### [address] Glucose [Mass/Vol] 177 mg/dL High 70-100 [facility] Comment on above: Result Comment: [place] Glucose Reference Range is dependent on time and content of last meal. Glucose of more than 200 mg/dL in a nonstressed, ambulatory subject supports the diagnosis of Diabetes Mellitus. ADA recommended reference range Performed By: #### C K, LIPASE, CBC, BMP, BNP, HEPATIC, HS TROP #### [address] Potassium [Moles/Vol] 4.2 mmol/L Normal 3.5-5.1 [facility] Comment on above: Performed By: #### C K, LIPASE, CBC, BMP, BNP, HEPATIC, HS TROP #### [address] Sodium [Moles/Vol] 137 mmol/L Normal 136-145 [facility] Comment on above: Performed By: #### C K, LIPASE, CBC, BMP, BNP, HEPATIC, HS TROP #### [address] Urea nitrogen [Mass/Vol] 33 mg/dL High 7-25 [facility] Comment on above: Performed By: #### C K, LIPASE, CBC, BMP, BNP, HEPATIC, HS TROP #### [address] Complete Blood Count Auto Di ffon 10-07-2024 Basophils (Bld) [#/Vol] 0.1 10*3/uL Normal 0.0-0.2 [facility] Comment on above: Result Comment: PERF ORMED BY: [place] [address] PATHOLOGIST SUPERVIS[employer] NORIEGA M.D. Performed By: #### C K, LIPASE, CBC, BMP, BNP, HEPATIC, HS TROP #### [address] Basophils/100 WBC (Bld) 1.2 % Normal . [facility] Comment on above: Performed By: #### C K, LIPASE, CBC, BMP, BNP, HEPATIC, HS TROP #### [address] Eosinophils (Bld) [#/Vol] 0.1 10*3/uL Normal 0.0-0.45 [facility] Comment on above: Performed By: #### C K, LIPASE, CBC, BMP, BNP, HEPATIC, HS TROP #### [address] Eosinophils/100 WBC (Bld) 2.0 % Normal . [facility] Comment on above: Performed By: #### C K, LIPASE, CBC, BMP, BNP, HEPATIC, HS TROP #### [address] Erythrocyte distribution width (RBC) [Ratio] 17.6 % High 12.0-14.8 [facility] Comment on above: Performed By: #### C K, LIPASE, CBC, BMP, BNP, HEPATIC, HS TROP #### [address] Hematocrit (Bld) [Volume fraction] 32.0 % Low 38.8-50.0 [facility] Comment on above: Performed By: #### C K, LIPASE, CBC, BMP, BNP, HEPATIC, HS TROP #### [address] Hemoglobin (Bld) [Mass/Vol] 10.9 g/dL Low 13.0-17.0 [facility] Comment on above: Performed By: #### C K, LIPASE, CBC, BMP, BNP, HEPATIC, HS TROP #### [address] Lymphocytes (Bld) [#/Vol] 1.3 10*3/uL Normal 1.00-4.8 [facility] Comment on above: Performed By: #### C K, LIPASE, CBC, BMP, BNP, HEPATIC, HS TROP #### [address] Lymphocytes/100 WBC (Bld) 30.5 % Normal . [facility] Comment on above: Performed By: #### C K, LIPASE, CBC, BMP, BNP, HEPATIC, HS TROP #### [address] MCH (RBC) [Entitic mass] 28.2 pg Normal 27.5-35.2 [facility] Comment on above: Performed By: #### C K, LIPASE, CBC, BMP, BNP, HEPATIC, HS TROP #### [address] MCV (RBC) [Entitic vol] 82.7 fL Low 83.5-101 [facility] Comment on above: Performed By: #### C K, LIPASE, CBC, BMP, BNP, HEPATIC, HS TROP #### [address] Mean Corpuscular HGB Conc 34.2 g/dL Normal 32.5-35.6 [facility] Comment on above: Performed By: #### C K, LIPASE, CBC, BMP, BNP, HEPATIC, HS TROP #### [address] Monocytes (Bld) [#/Vol] 0.3 10*3/uL Normal 0.0-0.8 [facility] Comment on above: Performed By: #### C K, LIPASE, CBC, BMP, BNP, HEPATIC, HS TROP #### [address] Monocytes/100 WBC (Bld) 7.1 % Normal . [facility] Comment on above: Performed By: #### C K, LIPASE, CBC, BMP, BNP, HEPATIC, HS TROP #### [address] Neutrophils (Bld) [#/Vol] 2.5 10*3/uL Normal 1.8-7.7 [facility] Comment on above: Performed By: #### C K, LIPASE, CBC, BMP, BNP, HEPATIC, HS TROP #### [address] Neutrophils/100 WBC (Bld) 59.2 % Normal . [facility] Comment on above: Performed By: #### C K, LIPASE, CBC, BMP, BNP, HEPATIC, HS TROP #### [address] NRBC% 0.2 /100{WBC} Normal 0-0.5 [facility] Comment on above: Performed By: #### C K, LIPASE, CBC, BMP, BNP, HEPATIC, HS TROP #### [address] Platelet mean volume (Bld) [Entitic vol] 7.4 fL Normal 6.6-10.1 The [facility] Comment on above: Performed By: #### C K, LIPASE, CBC, BMP, BNP, HEPATIC, HS TROP #### [address] Platelets (Bld) [#/Vol] 300 10*3/uL Normal 150-450 [facility] Comment on above: Performed By: #### C K, LIPASE, CBC, BMP, BNP, HEPATIC, HS TROP #### [address] RBC (Bld) [#/Vol] 3.87 10*6/uL Low 3.90-5.60 [facility] Comment on above: Performed By: #### C K, LIPASE, CBC, BMP, BNP, HEPATIC, HS TROP #### [address] WBC (Bld) [#/Vol] 4.2 10*3/uL Normal 4.1-10.5 [facility] Comment on above: Performed By: #### C K, LIPASE, CBC, BMP, BNP, HEPATIC, HS TROP #### [address] Glucose Poct Glucometerson 1 12-08-2023 Glucose [Mass/Vol] 220 mg/dL Normal [facility] Comment on above: Result Comment: [place] Glucose Reference Range is dependent on time and content of last meal. Glucose of more than 200 mg/dL in a nonstressed, ambulatory subject supports the diagnosis of Diabetes Mellitus. PERFORMED BY: [place] [address] PATHOLOGIST SUPER[employer] NORIEGA M.D. Performed By: #### C K, LIPASE, CBC, BMP, BNP, HEPATIC, HS TROP #### [address] Glucose [Mass/Vol] 267 mg/dL Normal [facility] Comment on above: Result Comment: [place] om Glucose Reference Range is dependent on time and content of last meal. Glucose of more than 200 mg/dL in a nonstressed, ambulatory subject supports the diagnosis of Diabetes Mellitus. PERFORMED BY: [place] [address] PATHOLOGIST SUPER[employer] NORIEGA M.D. Performed By: #### C K, LIPASE, CBC, BMP, BNP, HEPATIC, HS TROP #### [address] Glucose [Mass/Vol] 216 mg/dL Normal [facility] Comment on above: Result Comment: [place] Glucose Reference Range is dependent on time and content of last meal. Glucose of more than 200 mg/dL in a nonstressed, ambulatory subject supports the diagnosis of Diabetes Mellitus. PERFORMED BY: [place] [address] PATHOLOGIST SUPER[employer] NORIEGA M.D. Performed By: #### C K, LIPASE, CBC, BMP, BNP, HEPATIC, HS TROP #### [address] Glucose [Mass/Vol] 151 mg/dL Normal [facility] Comment on above: Result Comment: [place] om Glucose Reference Range is dependent on time and content of last meal. Glucose of more than 200 mg/dL in a nonstressed, ambulatory subject supports the diagnosis of Diabetes Mellitus. PERFORMED BY: [place] [address] PATHOLOGIST SUPER[employer] NORIEGA M.D. Performed By: #### C K, LIPASE, CBC, BMP, BNP, HEPATIC, HS TROP #### [address] Magnesiumon 10-07-2024 Magnesium [Mass/Vol] 1.9 mg/dL Normal 1.9-2.7 [facility] Comment on above: Result Comment: PERF ORMED BY: [place] [address] PATHOLOGIST SUPER[employer] NORIEGA M.D. Performed By: #### C K, LIPASE, CBC, BMP, BNP, HEPATIC, HS TROP #### [address] B-Type Natriuretic Peptideon 10-06-2024 Natriuretic peptide B (Bld) [Mass/Vol] 17.0 pg/mL Normal 5-100 [facility] Comment on above: Result Comment: PERF ORMED BY: [place] [address] PATHOLOGIST SUPER[employer] NORIEGA M.D. Performed By: #### C K, LIPASE, CBC, BMP, BNP, HEPATIC, HS TROP #### [address] Basic Metabolic Panelon 09-26 Anion gap [Moles/Vol] 14.7 mmol/L Normal 6.0-15.0 e [facility] Comment on above: Performed By: #### C K, LIPASE, CBC, BMP, BNP, HEPATIC, HS TROP #### [address] Calcium [Mass/Vol] 9.5 mg/dL Normal 8.6-10.3 [facility] Comment on above: Performed By: #### C K, LIPASE, CBC, BMP, BNP, HEPATIC, HS TROP #### [address] Chloride [Moles/Vol] 102 mmol/L Normal 98-107 [facility] Comment on above: Performed By: #### C K, LIPASE, CBC, BMP, BNP, HEPATIC, HS TROP #### [address] CO2 [Moles/Vol] 24.7 mmol/L Normal 21.0-31.0 [facility] Comment on above: Performed By: #### C K, LIPASE, CBC, BMP, BNP, HEPATIC, HS TROP #### [address] Creatinine [Mass/Vol] 0.68 mg/dL Low 0.70-1.30 [facility] Comment on above: Performed By: #### C K, LIPASE, CBC, BMP, BNP, HEPATIC, HS TROP #### [facility] [address] Creatinine Clr Calc Pharmacy 97.56 Normal [facility] Comment on above: Performed By: #### C K, LIPASE, CBC, BMP, BNP, HEPATIC, HS TROP #### [facility] [address] [place] [address] [place] GFR/1.73 sq M.predicted MDRD (S/P/Bld) [Vol rate/Area] mL/min/{1.73_m2} Normal [facility] Comment on above: Performed By: #### C K, LIPASE, CBC, BMP, BNP, HEPATIC, HS TROP #### [address] Glucose [Mass/Vol] 197 mg/dL High 70-100 [facility] Comment on above: Result Comment: [place] Glucose Reference Range is dependent on time and content of last meal. Glucose of more than 200 mg/dL in a nonstressed, ambulatory subject supports the diagnosis of Diabetes Mellitus. ADA recommended reference range Performed By: #### C K, LIPASE, CBC, BMP, BNP, HEPATIC, HS TROP #### [address] Potassium [Moles/Vol] 4.4 mmol/L Normal 3.5-5.1 [facility] Comment on above: Performed By: #### C K, LIPASE, CBC, BMP, BNP, HEPATIC, HS TROP #### [address] Sodium [Moles/Vol] 137 mmol/L Normal 136-145 [facility] Comment on above: Performed By: #### C K, LIPASE, CBC, BMP, BNP, HEPATIC, HS TROP #### [address] Urea nitrogen [Mass/Vol] 34 mg/dL High 7-25 [facility] Comment on above: Performed By: #### C K, LIPASE, CBC, BMP, BNP, HEPATIC, HS TROP #### [facility] [address] BioFire Not Detectedon 12-11 -2024 BioFire Not Detected Not detected Normal Not Detecte T he [facility] Comment on above: Result Comment: This is a duplicate RP2.1 COVID (PCR) result to be used for statistical tracking purpose only. PERFORMED BY: [place] [address] PATHOLOGIST SUPER[employer] NORIEGA M.D. Performed By: #### C K, LIPASE, CBC, BMP, BNP, HEPATIC, HS TROP #### [facility] [address] [place], [place] [id number] [facility] Blood Cultureon 10-06-2024 Bacteria identified Cx Nom (Bld) NO GROWTH 5 DAYS PERFORMED BY: [place] [address] PATHOLOGIST SUPER[employer] NORIEGA M.D. Normal [facility] Comment on above: Performed By: #### C K, LIPASE, CBC, BMP, BNP, HEPATIC, HS TROP #### [place] [id number] [facility] Bacteria identified Cx Nom (Bld) NO GROWTH 5 DAYS PERFORMED BY: [place] [address] PATHOLOGIST SUPER[employer] NORIEGA M.D. Normal [facility] Comment on above: Performed By: #### C K, LIPASE, CBC, BMP, BNP, HEPATIC, HS TROP #### [place] [id number] [facility] CT abdomen pelvis w conon CT abdomen pelvis w [facility] [place] [address] CT Scan Report Signed Patient: Vashti Massey MR#: [id number] : 1955 Acct:[id number] Age/Sex: 69 / M ADM Date: 10/06/24 Loc: ER Room: Type: [facility] ER Attending Dr: Copies to: Tori Morris MD Ordering Provider: Tori Morris MD Date of Service: 10/06/24 CT/CT abdomen pelvis w con: tenderness lower abd, hematuria CT ABDOMEN AND PELVIS WITH INTRAVENOUS CONTRAST: CLINICAL HISTORY: Hematuria abdominal pain COMPARISON: None TECHNIQUE: Spiral images were obtained through the abdomen and pelvis following the administration of intravenous contrast. This CT exam was performed using one or more following dose reduction techniques: Automated exposure control, adjustment of the mA and/or kV according to patient size, or use of iterative reconstruction technique. FINDINGS: Lung Bases: [No acute findings.] Organs:Liver gallbladder portal vein spleen pancreas and adrenal glands appear unremarkable. Cystic changes involving the kidneys one of which appears to have fine septation involving the superior pole left kidney as well as a small nodular component measuring 6 mm..[This measures approximately 6.4 x 9.0 x 7.9 cm. Abdominal aorta appears normal in caliber. GI: Stomach is grossly unremarkable. Small bowel appears nondilated. Appendix is normal. No acute colonic abnormality.[ Pelvis:[Cyr catheter is in place. Mild bladder wall thickening. Prostatomegaly.] Peritoneum/Retroperi toneum:No free air free fluid or lymphadenopathy.[ Abd wall/Bones:Abdominal wall demonstrates no acute findings. Osseous structures demonstrate degenerative change.[ CT/CT abdomen pelvis w con IMPRESSION: No acute process. Evidence of bladder outlet obstruction with Cyr catheter in place. Septated cystic lesion measuring 6.4 x 9.0 x 7.9 cm with a small 6 mm nodule superior pole left kidney. Underlying renal cell carcinoma cannot BE excluded. Impression dictated by: Dwayne Coello Jr., D.OMann10/06/2024 8:10 PM Dictation Location: [place] [address] Transcribed By: [facility] 10/06/242009 Dictated By: Dwayne Coello Jr, DO 10/06/242004 Signed By: 10/06/242009 Normal [facility] Complete Blood Count Auto Di ffon 10-06-2024 Basophils (Bld) [#/Vol] 0.1 10*3/uL Normal 0.0-0.2 [facility] Comment on above: Result Comment: PERF ORMED BY: [address] [place] [address] PATHOLOGIST SUPER[employer] NORIEGA M.D. Performed By: #### C K, LIPASE, CBC, BMP, BNP, HEPATIC, HS TROP #### [address] Basophils/100 WBC (Bld) 1.1 % Normal . [facility] Comment on above: Performed By: #### C K, LIPASE, CBC, BMP, BNP, HEPATIC, HS TROP #### [address] Eosinophils (Bld) [#/Vol] 0.1 10*3/uL Normal 0.0-0.45 [facility] Comment on above: Performed By: #### C K, LIPASE, CBC, BMP, BNP, HEPATIC, HS TROP #### [address] Eosinophils/100 WBC (Bld) 2.1 % Normal . [facility] Comment on above: Performed By: #### C K, LIPASE, CBC, BMP, BNP, HEPATIC, HS TROP #### [address] Erythrocyte distribution width (RBC) [Ratio] 17.7 % High 12.0-14.8 [facility] Comment on above: Performed By: #### C K, LIPASE, CBC, BMP, BNP, HEPATIC, HS TROP #### [address] Hematocrit (Bld) [Volume fraction] 33.5 % Low 38.8-50.0 [facility] Comment on above: Performed By: #### C K, LIPASE, CBC, BMP, BNP, HEPATIC, HS TROP #### [address] Hemoglobin (Bld) [Mass/Vol] 11.2 g/dL Low 13.0-17.0 [facility] Comment on above: Performed By: #### C K, LIPASE, CBC, BMP, BNP, HEPATIC, HS TROP #### [address] Lymphocytes (Bld) [#/Vol] 1.3 10*3/uL Normal 1.00-4.8 [facility] Comment on above: Performed By: #### C K, LIPASE, CBC, BMP, BNP, HEPATIC, HS TROP #### [address] Lymphocytes/100 WBC (Bld) 26.1 % Normal . [facility] Group Comment on above: Performed By: #### C K, LIPASE, CBC, BMP, BNP, HEPATIC, HS TROP #### [address] MCH (RBC) [Entitic mass] 27.7 pg Normal 27.5-35.2 [facility] Comment on above: Performed By: #### C K, LIPASE, CBC, BMP, BNP, HEPATIC, HS TROP #### [address] MCV (RBC) [Entitic vol] 82.5 fL Low 83.5-101 [facility] Comment on above: Performed By: #### C K, LIPASE, CBC, BMP, BNP, HEPATIC, HS TROP #### [address] Mean Corpuscular HGB Conc 33.5 g/dL Normal 32.5-35.6 [facility] Comment on above: Performed By: #### C K, LIPASE, CBC, BMP, BNP, HEPATIC, HS TROP #### [address] Monocytes (Bld) [#/Vol] 0.3 10*3/uL Normal 0.0-0.8 [facility] Comment on above: Performed By: #### C K, LIPASE, CBC, BMP, BNP, HEPATIC, HS TROP #### [address] Monocytes/100 WBC (Bld) 17.55 % Normal 0.00-20.00 [facility] Comment on above: Performed By: #### C K, LIPASE, CBC, BMP, BNP, HEPATIC, HS TROP #### [address] Monocytes/100 WBC (Bld) 6.5 % Normal . [facility] Comment on above: Performed By: #### C K, LIPASE, CBC, BMP, BNP, HEPATIC, HS TROP #### [address] Neutrophils (Bld) [#/Vol] 3.3 10*3/uL Normal 1.8-7.7 [facility] Comment on above: Performed By: #### C K, LIPASE, CBC, BMP, BNP, HEPATIC, HS TROP #### [address] Neutrophils/100 WBC (Bld) 64.2 % Normal . [facility] Comment on above: Performed By: #### C K, LIPASE, CBC, BMP, BNP, HEPATIC, HS TROP #### [address] NRBC% 0.1 /100{WBC} Normal 0-0.5 [facility] Comment on above: Performed By: #### C K, LIPASE, CBC, BMP, BNP, HEPATIC, HS TROP #### [address] Platelet mean volume (Bld) [Entitic vol] 7.3 fL Normal 6.6-10.1 [facility] Comment on above: Performed By: #### C K, LIPASE, CBC, BMP, BNP, HEPATIC, HS TROP #### [place] [address] [place] Platelets (Bld) [#/Vol] 324 10*3/uL Normal 150-450 [facility] Comment on above: Performed By: #### C K, LIPASE, CBC, BMP, BNP, HEPATIC, HS TROP #### [place] [address] [place] RBC (Bld) [#/Vol] 4.07 10*6/uL Normal 3.90-5.60 [facility] Comment on above: Performed By: #### C K, LIPASE, CBC, BMP, BNP, HEPATIC, HS TROP #### [place] [address] [place] WBC (Bld) [#/Vol] 5.2 10*3/uL Normal 4.1-10.5 [facility] Comment on above: Performed By: #### C K, LIPASE, CBC, BMP, BNP, HEPATIC, HS TROP #### [facility] [address] [place] [address] [place] Creatine Kinaseon 10-06-2024 CK [Catalytic activity/Vol] 10 U/L Low 30-223 [facility] Comment on above: Performed By: #### C K, LIPASE, CBC, BMP, BNP, HEPATIC, HS TROP #### [facility] [address] [place] [address] [place] Dipstick and Microscopicon 1 12-07-2023 Appearance (U) Turbid Critically abnormal Clear [facility] Comment on above: Order Comment: Name Collection Type:: Cyr Catheter Performed By: #### C K, LIPASE, CBC, BMP, BNP, HEPATIC, HS TROP #### [address] Bacteria,Urine None Seen Normal None Seen [facility] Comment on above: Order Comment: Name Collection Type:: Cyr Catheter Performed By: #### C K, LIPASE, CBC, BMP, BNP, HEPATIC, HS TROP #### [place] [address] [place] Bilirubin,Urine Negative Normal Negative [facility] Comment on above: Order Comment: Name Collection Type:: Cyr Catheter Result Comment: Unab le to obtain accurate result due to color interference. Performed By: #### C K, LIPASE, CBC, BMP, BNP, HEPATIC, HS TROP #### [address] Color (U) Red Critically abnormal Yellow [facility] Comment on above: Order Comment: Name Collection Type:: Cyr Catheter Performed By: #### C K, LIPASE, CBC, BMP, BNP, HEPATIC, HS TROP #### [address] Glucose Ql (U) Normal Normal Normal [facility] Comment on above: Order Comment: Name Collection Type:: Cyr Catheter Result Comment: Unab le to obtain accurate result due to color interference. Performed By: #### C K, LIPASE, CBC, BMP, BNP, HEPATIC, HS TROP #### [address] Hyaline Casts,Urine None Normal 0-8 [facility] Comment on above: Order Comment: Name Collection Type:: Cyr Catheter Performed By: #### C K, LIPASE, CBC, BMP, BNP, HEPATIC, HS TROP #### [address] Ketones Ql (U) Negative Normal Negative [facility] Comment on above: Order Comment: Name Collection Type:: Cyr Catheter Result Comment: Unab le to obtain accurate result due to color interference. Performed By: #### C K, LIPASE, CBC, BMP, BNP, HEPATIC, HS TROP #### [address] Leukocyte esterase Test strip Ql (U) 2+ High Negative [facility] Comment on above: Order Comment: Name Collection Type:: Cyr Catheter Result Comment: Unab le to obtain accurate result due to color interference. Performed By: #### C K, LIPASE, CBC, BMP, BNP, HEPATIC, HS TROP #### [address] Mucus,Urine 2+ Critically abnormal [facility] Comment on above: Order Comment: Name Collection Type:: Cyr Catheter Result Comment: PERF ORMED BY: [place] [address] PATHOLOGIST SUPERVISOR [employer] VENUS NORIEGA M.D. Performed By: #### C K, LIPASE, CBC, BMP, BNP, HEPATIC, HS TROP #### [address] Nitrite,Urine Negative Normal Negative [facility] Comment on above: Order Comment: Name Collection Type:: Cyr Catheter Result Comment: Unab le to obtain accurate result due to color interference. Unable to obtain accurate result due to color interference. Performed By: #### C K, LIPASE, CBC, BMP, BNP, HEPATIC, HS TROP #### [address] Occult Blood,Urine 3+ High Negative [facility] Comment on above: Order Comment: Name Collection Type:: Cyr Catheter Result Comment: Unab le to obtain accurate result due to color interference. Performed By: #### C K, LIPASE, CBC, BMP, BNP, HEPATIC, HS TROP #### [address] pH (U) 7.0 [pH] Normal 5.0-9.0 [facility] Comment on above: Order Comment: Name Collection Type:: Cyr Catheter Result Comment: Unab le to obtain accurate result due to color interference. Performed By: #### C K, LIPASE, CBC, BMP, BNP, HEPATIC, HS TROP #### [address] Protein (U) [Mass/Vol] 200 mg/dL High Negative [facility] Comment on above: Order Comment: Name Collection Type:: Cyr Catheter Result Comment: Unab le to obtain accurate result due to color interference. Performed By: #### C K, LIPASE, CBC, BMP, BNP, HEPATIC, HS TROP #### [address] RBC,Urine Innumerable High 0-4 [facility] Comment on above: Order Comment: Name Collection Type:: Cyr Catheter Performed By: #### C K, LIPASE, CBC, BMP, BNP, HEPATIC, HS TROP #### [address] Specificy [place],Urine 1.005 Normal 1.001-1.030 [facility] Comment on above: Order Comment: Name Collection Type:: Cyr Catheter Performed By: #### C K, LIPASE, CBC, BMP, BNP, HEPATIC, HS TROP #### [address] Urobilinogen,Urine Normal Normal Normal [facility] Comment on above: Order Comment: Name Collection Type:: Cyr Catheter Result Comment: Unab le to obtain accurate result due to color interference. Performed By: #### C K, LIPASE, CBC, BMP, BNP, HEPATIC, HS TROP #### [facility] [address] WBC CLUMP, Urine Many High None Seen [facility] Comment on above: Order Comment: Name Collection Type:: Cyr Catheter Performed By: #### C K, LIPASE, CBC, BMP, BNP, HEPATIC, HS TROP #### [facility] [address] WBC,Urine Innumerable High 0-4 [facility] Comment on above: Order Comment: Name Collection Type:: Cyr Catheter Performed By: #### C K, LIPASE, CBC, BMP, BNP, HEPATIC, HS TROP #### [facility] [address] ECG 12 lead ECGon 10-06-2024 ECG 12 lead ECG [facility] Main [place] [address] [place] [address] Electrocardiograph Report Signed Patient: Vashti Massey MR#: [id number] : 1955 Acct:[id number] Age/Sex: 69 / M ADM Date: 10/06/24 Loc: ER Room: Type: PRE ER Attending Dr: Ordering Provider: Tori Morris MD Date of Service: 10/06/2409/19/1701 ECG/ECG 12 lead ECG: CHEST PAIN Copies to: Test Reason : Blood Pressure : 84/55 mmHG Vent. Rate : 65 BPM Atrial Rate : 65 BPM P-R Int : 152 ms QRS Dur : 90 ms QT Int : 420 ms P-R-T Axes : 17 -17 3 degrees QTcB Int : 436 ms Normal sinus rhythm Confirmed by Tori Morris MD ([id number]) on 10/06/2024 5:32:21 PM Referred By: Electronically Signed By: Tori Morris MD Transcribed By: MUS Signed By Tori Morris MD 09/26 11/19 1732 Normal [facility] Glucose Poct Glucometerson 1 12-07-2023 Glucose [Mass/Vol] 174 mg/dL Normal [facility] Comment on above: Result Comment: [place] Glucose Reference Range is dependent on time and content of last meal. Glucose of more than 200 mg/dL in a nonstressed, ambulatory subject supports the diagnosis of Diabetes Mellitus. PERFORMED BY: [place] [address] PATHOLOGIST SUPERVISOR [employer] VENUS NORIEGA M.D. Performed By: #### C K, LIPASE, CBC, BMP, BNP, HEPATIC, HS TROP #### [address] Hepatic Panelon 10-06-2024 Albumin [Mass/Vol] 4.0 g/dL Normal 3.5-5.7 [facility] Comment on above: Performed By: #### C K, LIPASE, CBC, BMP, BNP, HEPATIC, HS TROP #### [address] Albumin/Globulin [Mass ratio] 1.5 {ratio} Normal [facility] Comment on above: Performed By: #### C K, LIPASE, CBC, BMP, BNP, HEPATIC, HS TROP #### [address] ALP [Catalytic activity/Vol] 67 U/L Normal 34-104 [facility] Comment on above: Performed By: #### C K, LIPASE, CBC, BMP, BNP, HEPATIC, HS TROP #### [address] ALT [Catalytic activity/Vol] 9 U/L Normal 7-52 [facility] Comment on above: Performed By: #### C K, LIPASE, CBC, BMP, BNP, HEPATIC, HS TROP #### [address] AST [Catalytic activity/Vol] 9 U/L Low 13-39 [facility] Comment on above: Performed By: #### C K, LIPASE, CBC, BMP, BNP, HEPATIC, HS TROP #### [address] Bilirubin [Mass/Vol] 0.6 mg/dL Normal 0.3-1.0 [facility] Comment on above: Performed By: #### C K, LIPASE, CBC, BMP, BNP, HEPATIC, HS TROP #### [address] Bilirubin,Indirect 0.5 mg/dL Normal [facility] Comment on above: Performed By: #### C K, LIPASE, CBC, BMP, BNP, HEPATIC, HS TROP #### [address] Bilirubin.indirect [Mass/Vol] 0.10 mg/dL Normal 0.03-0.18 [facility] Comment on above: Performed By: #### C K, LIPASE, CBC, BMP, BNP, HEPATIC, HS TROP #### [address] Globulin (S) [Mass/Vol] 2.7 g/dL Normal [facility] Comment on above: Performed By: #### C K, LIPASE, CBC, BMP, BNP, HEPATIC, HS TROP #### [address] Protein [Mass/Vol] 6.7 g/dL Normal 6.4-8.9 [facility] Comment on above: Performed By: #### C K, LIPASE, CBC, BMP, BNP, HEPATIC, HS TROP #### [address] Lactic Acidon 10-06-2024 Lactate [Moles/Vol] 1.2 mmol/L Normal 0.5-2.2 [facility] Comment on above: Result Comment: PERF ORMED BY: [place] [address] PATHOLOGIST SUPERVISOR [employer] VENUS NORIEGA M.D. Performed By: #### C K, LIPASE, CBC, BMP, BNP, HEPATIC, HS TROP #### [address] Lipaseon 10-06-2024 Lipase [Catalytic activity/Vol] 12.0 U/L Normal 11.0-82.0 [facility] Comment on above: Result Comment: PERF ORMED BY: [place] [address] PATHOLOGIST SUPERVISOR [employer] VENUS NORIEGA M.D. Performed By: #### C K, LIPASE, CBC, BMP, BNP, HEPATIC, HS TROP #### [place] [id number] [facility] Prothrombin Time INRon 10-06 INR Coag (PPP) [Relative time] 1.2 {INR} Normal [facility] Comment on above: Result Comment: INR Therapeutic Range A) Pre- and Peroperative OAT started two weeks before surgery. NOT HIP SURGERY: 1.5 - 2.5 HIP SURGERY: 2 - 3 B) Primary and secondary prevention of venous THROMBOSIS: 2 - 3 C) Active venous thrombosis, pulmonary embolism and prevention of recurrent venous thrombosis: 2 - 3 D) Prevention of arterial thromboembolism including patients with mechanical heart valves: 3 - 4.5 PERFORMED BY: [place] [address] PATHOLOGIST SUPERVISOR [employer] VENUS NORIEGA M.D. Performed By: #### C K, LIPASE, CBC, BMP, BNP, HEPATIC, HS TROP #### [place] [id number] [facility] PT Coag (PPP) [Time] 13.5 s High 9.0-12.9 [facility] Comment on above: Result Comment: A he matocrit value greater than 55% may lead to inaccurate results in coagulation testing. Patients having hematocrit values >55% require a special collection tube for coagulation studies. Please contact the laboratory at [phone] for redraw instructions. Performed By: #### C K, LIPASE, CBC, BMP, BNP, HEPATIC, HS TROP #### [place] [id number] [facility] Respiratory (Upper) Panel, P CRon 10-06-2024 Respiratory (Upper) Panel, PCR Adenovirus Not detected Bordetella parapertussis Not detected Chlamydia pneumoniae Not detected Coronavirus 229E Not detected Coronavirus HKU1 Not detected Coronavirus NL63 Not detected Coronavirus OC43 Not detected Influenza A Not detected Influenza B Not detected Human Metapneumovirus Not detected Mycoplasma pneumoniae Not detected Parainfluenza Virus 1 Not detected Parainfluenza Virus 2 Not detected Parainfluenza Virus 3 Not detected Parainfluenza Virus 4 Not detected Bordetella pertussis-ptxP Not detected Human Rhino/Enterovirus Not detected Resp. Syncytial Virus Not detected COVID-19 Detected/Not Detected Not detected Blank Space FLUA TEST INCLUDES Influenza A tests for the following clinically FLUA TEST INCLUDES significant subtypes: FLUA TEST INCLUDES - Influenza A FLUA TEST INCLUDES - Influenza A H1 FLUA TEST INCLUDES - Influenza A H1 2009 FLUA TEST INCLUDES - Influenza A H3 Blank Space PERFORMED BY: [place] [address] PATHOLOGIST SUPERVISOR [employer] VENUS NORIEGA M.D. Normal [facility] Comment on above: Performed By: #### C K, LIPASE, CBC, BMP, BNP, HEPATIC, HS TROP #### [facility] [address] [place] [address] Troponin I High Sensitivityo n 10-06-2024 Troponin I High Sensitivity 4.1 pg/mL Normal 0.0-20.0 [facility] Comment on above: Result Comment: PERF ORMED BY: [place] [address] PATHOLOGIST SUPERVISOR [employer] VENUS NORIEGA M.D. Performed By: #### H S TROP #### [facility] [address] [place] [address] Troponin I High Sensitivity 4.1 pg/mL Normal 0.0-20.0 [facility] Comment on above: Result Comment: PERF ORMED BY: [place] [address] PATHOLOGIST SUPERVISOR [employer] VENUS NORIEGA M.D. Performed By: #### C K, LIPASE, CBC, BMP, BNP, HEPATIC, HS TROP #### [facility] [address] Urine Cultureon 10-06-2024 Bacteria identified Cx Nom (U) ESBL results called at 0907 on 10/09/24 ORGANISM: Klebsiella pneumoniae (ESBL) (O:KLEPNEESBL) [place] Count >100,000 ORGANISM: Providencia stuartii (O:PROSTU) [place] Count 75,000 Aerobic CAROLIN Charge (NMIC56) ----- SUSCEPTIBILITY ---- ORGANISM: O:KLEPNEESBL ANTIBIOTIC INTERPRETATION CAROLIN Amikacin S <16 Amoxacillin/K Clavulanate S <8 Ampicillin/Sulbactam I 1616/8 Aztreonam ESBL >16 Cefazolin R* >16 Cefepime R* >16 Ceftazidime ESBL >16 Ceftazidime/Avibacta m S <4 Ceftolozane/Tazobact am S <2 Ceftriaxone ESBL >32 Cefuroxime R* >16 Ciprofloxacin R 1 Ertapenem S <0.5 Gentamicin S <2 Levofloxacin R 2 Meropenem S <1 Meropenem/Vaborbacta m S <2 Nitrofurantoin R >64 Piperacillin/Tazobac hilario S <8 Tetracycline S <4 Tigecycline S <2 Tobramycin S <2 Trimethoprim/Sulfame thoxazole S 09/14 Aerobic CAROLIN Charge (NMIC56) ----- SUSCEPTIBILITY ---- ORGANISM: O:PROSTU ANTIBIOTIC INTERPRETATION CAROLIN Amikacin S <16 Ampicillin/Sulbactam IB 88/4 Aztreonam IB <4 Cefepime S <2 Ceftazidime IB 8 Ceftazidime/Avibacta m S <4 Ceftolozane/Tazobact am I 4 Ceftriaxone I 2 Cefuroxime IB 8 Ciprofloxacin R >2 Ertapenem S <0.5 Gentamicin R* <2 Levofloxacin R >4 Meropenem S <1 Meropenem/Vaborbacta m S <2 Piperacillin/Tazobac hilario IB <8 Tobramycin R* <2 Trimethoprim/Sulfame thoxazole S <0.5 S = SUSCEPTIBLE I = INTERMEDIATE R = RESISTANT BLANK = DATA NOT AVAILABLE, OR DRUG NOT ADVISABLE OR TESTED R* = RESISTANCE DUE TO EXTENDED SPECTRUM BETA-LACTAMASES ESBL = EXTENDED SPECTRUM BETA-LACTAMASE TFG = THYMIDINE-DEPENDENT STRAIN FAHAD = BETA-LACTAMASE POSITIVE IB = INDUCIBLE BETA-LACTAMASE. APPEARS IN PLACE OF 'S' WITH SPECIES KNOWN TO POSSESS INDUCIBLE BETA-LACTAMASES. POTENTIALLY THEY MAY BECOME RESISTANT TO ALL B-LACTAM DRUGS. PERFORMED BY: [place] [address] PATHOLOGIST SUPERVISOR [employer] VENUS NORIEGA M.D. Normal [facility] Comment on above: Performed By: #### C K, LIPASE, CBC, BMP, BNP, HEPATIC, HS TROP #### [address] XR chest 2V*on 10-06-2024 XR chest 2V* [facility] Main [place] [address] [place] [address] XRay Report Signed Patient: Vashti Massey MR#: [id number] : 1955 Acct:[id number] Age/Sex: 69 / M ADM Date: 10/06/24 Loc: ER Room: Type: [facility] ER Attending Dr: Copies to: Tori Morris MD Ordering Provider: Tori Morris MD Date of Service: 10/06/24 XR/XR chest 2V*: Chest Pain Chest 2 views CLINICAL HISTORY: Dizziness bladder catheter low blood pressure COMPARISON: None FINDINGS: Heart normal in size. No consolidation pneumothorax pleural effusion or free air. XR/XR chest 2V* IMPRESSION: NO ACUTE CARDIOPULMONARY ABNORMALITY. Impression dictated by: Dwayne Coello Jr., D.OMann10/06/2024 8:05 PM Dictation Location: [place] [address] Transcribed By: [facility] 10/06/242004 Dictated By: Dwayne Coello Jr DO 10/06/242004 Signed By: 10/06/242004 Normal [facility] Basic metabolic 2000 panelon 10-05-2024 Anion gap [Moles/Vol] 14 mmol/L 10 - 2 0 mmol/L [facility] Calcium [Mass/Vol] 9.5 mg/dL 8.6 - 10. 3 mg/dL [facility] Chloride [Moles/Vol] 101 mmol/L 98 - 10 7 mmol/L [facility] CO2 [Moles/Vol] 27 mmol/L 21 - 32 mmol/L [facility] Creatinine [Mass/Vol] 0.6 mg/dL 0.50 - 1.30 mg/dL [facility] eGFR - PINF [facility] Comment on above: Calculations of bartolome mated GFR are performed using the 2020 CKD-EPI Study Refit equation without the race variable for the IDMS-Traceable creatinine methods. https://jasn.asnjournals.org/content/early/ASN.09254 84728 Glucose [Mass/Vol] 157 mg/dL High 74 - 99 mg/dL [facility] Interpretation and review of laboratory results Abnormal [facility] Potassium [Moles/Vol] 4.1 mmol/L 3.5 - 5.3 mmol/L [facility] Sodium [Moles/Vol] 138 mmol/L 136 - 145 mmol/L [facility] Urea nitrogen [Mass/Vol] 22 mg/dL 6 - 23 mg/dL [facility] Anion gap [Moles/Vol] 14 mmol/L Normal 10-20 [facility] Comment on above: Performed By: #### 1 9123-9 #### OLESYA CAIN ([id number]) [facility] [place] [address] [place] [address] Calcium [Mass/Vol] 9.5 mg/dL Normal 8.6-10.3 [facility] Comment on above: Performed By: #### 1 9123-9 #### OLESYA CAIN ([id number]) [facility] [place] [address] [place] [address] Chloride [Moles/Vol] 101 mmol/L Normal 98-107 [facility] Comment on above: Performed By: #### 1 9123-9 #### OLESYA CAIN ([id number]) [facility] [address] [place] [address] CO2 [Moles/Vol] 27 mmol/L Normal 21-32 [facility] Comment on above: Performed By: #### 1 9123-9 #### OLESYA CAIN ([id number]) [facility] [place] [address] [place] [address] Creatinine [Mass/Vol] 0.60 mg/dL Normal 0.50-1.30 [facility] Comment on above: Performed By: #### 1 9123-9 #### OLESYA CAIN ([id number]) [facility] [address] [place] [address] GFR/1.73 sq M.predicted MDRD (S/P/Bld) [Vol rate/Area] mL/min/{1.73_m2} Normal >60 [facility] Comment on above: Result Comment: Calc ulations of estimated GFR are performed using the 2020 CKD-EPI Study Refit equation without the race variable for the IDMS-Traceable creatinine methods. https://jasn.asnjournals.org/content//ASN.59572 75666 Performed By: #### 1 9123-9 #### OLESYA CAIN ([id number]) [facility] [place] [address] [place] [address] Glucose [Mass/Vol] 157 mg/dL High 74-99 [facility] Comment on above: Performed By: #### 1 9123-9 #### OLESYA CAIN ([id number]) [facility] [place] [address] [place] [address] Potassium [Moles/Vol] 4.1 mmol/L Normal 3.5-5.3 [facility] Comment on above: Performed By: #### 1 9123-9 #### OLESYA CAIN ([id number]) [facility] [place] [address] [place] [address] Sodium [Moles/Vol] 138 mmol/L Normal 136-145 [facility] Comment on above: Performed By: #### 1 9123-9 #### OLESYA CAIN ([id number]) [facility] [place] [address] [place] [address] Urea nitrogen [Mass/Vol] 22 mg/dL Normal 6-23 [facility] Comment on above: Performed By: #### 1 9123-9 #### OLESYA CAIN ([id number]) [facility] [place] [address] [place] [address] CBC panel Auto (Bld)on 10-05 Erythrocyte distribution width (RBC) [Ratio] 16.2 % High 11.5 - 14.5 % [facility] Hematocrit (Bld) [Volume fraction] 33.9 % Low 41.0 - 52.0 % [facility] Hemoglobin (Bld) [Mass/Vol] 11 g/dL Low 13.5 - 17.5 g/dL [facility] Interpretation and review of laboratory results Abnormal [facility] MCH (RBC) [Entitic mass] 27.4 pg 26.0 - 34.0 pg [facility] MCHC (RBC) [Mass/Vol] 32.4 g/dL 32.0 - 36.0 g/dL [facility] MCV (RBC) [Entitic vol] 84 fL 80 - 100 fL [facility] Nucleated RBC/100 WBC (Bld) [Ratio] 0 % [facility] Platelets (Bld) [#/Vol] 264 10*3/uL [facility] RBC (Bld) [#/Vol] 4.02 10*6/uL Low [facility] WBC (Bld) [#/Vol] 6.6 10*3/uL [facility] Erythrocyte distribution width (RBC) [Ratio] 16.2 % High 11.5-14.5 [facility] Comment on above: Performed By: #### 1 9123-9 #### OLESYA CAIN ([id number]) [facility] [place] [address] [place] [address] Hematocrit (Bld) [Volume fraction] 33.9 % Low 41.0-52.0 [facility] Comment on above: Performed By: #### 1 9123-9 #### OLESYA CAIN ([id number]) [facility] [place] [address] [place] [address] Hemoglobin (Bld) [Mass/Vol] 11.0 g/dL Low 13.5-17.5 [facility] Comment on above: Performed By: #### 1 9123-9 #### OLESYA CAIN ([id number]) [facility] [place] [address] [place] [address] MCH (RBC) [Entitic mass] 27.4 pg Normal 26.0-34.0 [facility] Comment on above: Performed By: #### 1 9123-9 #### OLESYA CAIN ([id number]) [facility] [place] [address] [place] [address] MCHC (RBC) [Mass/Vol] 32.4 g/dL Normal 32.0-36.0 [facility] Comment on above: Performed By: #### 1 9123-9 #### OLESYA CAIN ([id number]) [facility] [place] [address] [place] [address] MCV (RBC) [Entitic vol] 84 fL Normal 80-100 [facility] Comment on above: Performed By: #### 1 9123-9 #### OLESYA CAIN ([id number]) [facility] [place] [address] [place] [address] Nucleated RBC/100 WBC (Bld) [Ratio] 0.0 /100 WBCs Normal 0.0-0.0 [facility] Comment on above: Performed By: #### 1 9123-9 #### OLESYA CAIN ([id number]) [facility] [place] [address] [place] [address] Platelets (Bld) [#/Vol] 264 x10*3/uL Normal 150-450 [facility] Comment on above: Performed By: #### 1 9123-9 #### OLESYA CAIN ([id number]) [facility] [place] [address] [place] [address] RBC (Bld) [#/Vol] 4.02 x10*6/uL Low 4.50-5.90 [facility] Comment on above: Performed By: #### 1 9123-9 #### OLESYA CAIN ([id number]) [facility] [place] [address] [place] [address] WBC (Bld) [#/Vol] 6.6 x10*3/uL Normal 4.4-11.3 [facility] Comment on above: Performed By: #### 1 9123-9 #### OLESYA CAIN ([id number]) [facility] [place] [address] [place] [address] Glucose Test strip manual (B ld) [Mass/Vol]on 10-05-2024 Glucose [Mass/Vol] 154 mg/dL High 74-99 [facility] Comment on above: Performed By: #### 1 9123-9 #### OLESYA CAIN ([id number]) [facility] [address] [place] [address] Glucose [Mass/Vol] 183 mg/dL High 74 - 99 mg/dL [facility] Interpretation and review of laboratory results Abnormal [facility] Glucose [Mass/Vol] 183 mg/dL High 74-99 [facility] Comment on above: Performed By: #### 1 9123-9 #### OLESYA CAIN ([id number]) [facility] [address] [place] [address] Glucose [Mass/Vol] 213 mg/dL High 74 - 99 mg/dL [facility] Interpretation and review of laboratory results Abnormal [facility] Glucose [Mass/Vol] 213 mg/dL High 74-99 [facility] Comment on above: Performed By: #### 1 9123-9 #### OLESYA CAIN ([id number]) [facility] [place] [address] [place] [address] Glucose [Mass/Vol] 168 mg/dL High 74 - 99 mg/dL [facility] Interpretation and review of laboratory results Abnormal [facility] Glucose [Mass/Vol] 168 mg/dL High 74-99 [facility] Comment on above: Performed By: #### 1 9123-9 #### OLESYA CAIN ([id number]) [facility] [place] [address] [place] [address] Magnesiumon 10-05-2024 Magnesium [Mass/Vol] 1.97 mg/dL 1.60 - 2.40 mg/dL [facility] Magnesium [Mass/Vol] 1.97 mg/dL Normal 1.60-2.40 [facility] Comment on above: Performed By: #### 1 9123-9 #### OLESYA CAIN ([id number]) [facility] [place] [address] [place] [address] No Panel Informationon 10-05 Interpretation and review of laboratory results Normal [facility] Phosphateon 10-05-2024 Phosphate [Mass/Vol] 4.3 mg/dL Normal 2.5-4.9 [facility] Comment on above: Result Comment: The performance characteristics of phosphorus testing in heparinized plasma have been validated by the individual laboratory site where testing is performed. Testing on heparinized plasma is not approved by the FDA; however, such approval is not necessary. Performed By: #### 1 9123-9 #### OLESYA CAIN ([id number]) [facility] [address] [place] [address] Phosphoruson 10-05-2024 Phosphate [Mass/Vol] 4.3 mg/dL 2.5 - 4 .9 mg/dL [facility] Comment on above: The performance cheri acteristics of phosphorus testing in heparinized plasma have been validated by the individual laboratory site where testing is performed. Testing on heparinized plasma is not approved by the FDA; however, such approval is not necessary. Basic metabolic 2000 panelon 10-04-2024 Anion gap [Moles/Vol] 13 mmol/L 10 - 2 0 mmol/L [facility] Calcium [Mass/Vol] 9.4 mg/dL 8.6 - 10. 3 mg/dL [facility] Chloride [Moles/Vol] 100 mmol/L 98 - 10 7 mmol/L [facility] CO2 [Moles/Vol] 27 mmol/L 21 - 32 mmol/L [facility] Creatinine [Mass/Vol] 0.55 mg/dL 0.50 - 1.30 mg/dL [facility] eGFR - PINF [facility] Comment on above: Calculations of bartolome mated GFR are performed using the 2020 CKD-EPI Study Refit equation without the race variable for the IDMS-Traceable creatinine methods. https://jasn.asnjournals.org/content/early//ASN.06395 92392 Glucose [Mass/Vol] 169 mg/dL High 74 - 99 mg/dL [facility] Interpretation and review of laboratory results Abnormal [facility] Potassium [Moles/Vol] 3.8 mmol/L 3.5 - 5.3 mmol/L [facility] Sodium [Moles/Vol] 136 mmol/L 136 - 145 mmol/L [facility] Urea nitrogen [Mass/Vol] 18 mg/dL 6 - 23 mg/dL [facility] Anion gap [Moles/Vol] 13 mmol/L Normal 10-20 [facility] Comment on above: Performed By: #### 3 4529-8 #### OLESYA CAIN ([id number]) [facility] [address] [place] [address] Calcium [Mass/Vol] 9.4 mg/dL Normal 8.6-10.3 [facility] Comment on above: Performed By: #### 3 4529-8 #### OLESYA CAIN ([id number]) [facility] [address] [place] [address] Chloride [Moles/Vol] 100 mmol/L Normal 98-107 [facility] Comment on above: Performed By: #### 3 4529-8 #### OLESYA CAIN ([id number]) [facility] [address] [place] [address] CO2 [Moles/Vol] 27 mmol/L Normal 21-32 [facility] Comment on above: Performed By: #### 3 4529-8 #### OLESYA CAIN ([id number]) [facility] [address] [place] [address] Creatinine [Mass/Vol] 0.55 mg/dL Normal 0.50-1.30 [facility] Comment on above: Performed By: #### 3 4529-8 #### OLESYA CAIN ([id number]) [facility] [address] [place] [address] GFR/1.73 sq M.predicted MDRD (S/P/Bld) [Vol rate/Area] mL/min/{1.73_m2} Normal >60 [facility] Comment on above: Result Comment: Calc ulations of estimated GFR are performed using the 2020 CKD-EPI Study Refit equation without the race variable for the IDMS-Traceable creatinine methods. https://jasn.asnjournals.org/content/early/ASN.91646 67657 Performed By: #### 3 4529-8 #### OLESYA CAIN ([id number]) [facility] [address] [place] [address] Glucose [Mass/Vol] 169 mg/dL High 74-99 [facility] Comment on above: Performed By: #### 3 4529-8 #### OLESYA CAIN ([id number]) [facility] [address] [place] [address] Potassium [Moles/Vol] 3.8 mmol/L Normal 3.5-5.3 [facility] Comment on above: Performed By: #### 3 4529-8 #### OLESYA CAIN ([id number]) [facility] [address] [place] [address] Sodium [Moles/Vol] 136 mmol/L Normal 136-145 [facility] Comment on above: Performed By: #### 3 4529-8 #### OLESYA CAIN ([id number]) [facility] [place] [address] [place] [address] Urea nitrogen [Mass/Vol] 18 mg/dL Normal 6-23 [facility] Comment on above: Performed By: #### 3 4529-8 #### OLESYA CAIN ([id number]) [facility] [address] [place] [address] CBC panel Auto (Bld)on 10-04 Erythrocyte distribution width (RBC) [Ratio] 16.2 % High 11.5 - 14.5 % [facility] Hematocrit (Bld) [Volume fraction] 32.9 % Low 41.0 - 52.0 % [facility] Hemoglobin (Bld) [Mass/Vol] 10.5 g/dL Low 13.5 - 17.5 g/dL [facility] Interpretation and review of laboratory results Abnormal [facility] MCH (RBC) [Entitic mass] 26.7 pg 26.0 - 34.0 pg [facility] MCHC (RBC) [Mass/Vol] 31.9 g/dL Low 32.0 - 36.0 g/dL [facility] MCV (RBC) [Entitic vol] 84 fL 80 - 100 fL [facility] Nucleated RBC/100 WBC (Bld) [Ratio] 0 % [facility] Platelets (Bld) [#/Vol] 270 10*3/uL [facility] RBC (Bld) [#/Vol] 3.93 10*6/uL Low [facility] WBC (Bld) [#/Vol] 5.2 10*3/uL [facility] Erythrocyte distribution width (RBC) [Ratio] 16.2 % High 11.5-14.5 [facility] Comment on above: Performed By: #### 3 4529-8 #### OLESYA CAIN ([id number]) [facility] [address] [place] [address] Hematocrit (Bld) [Volume fraction] 32.9 % Low 41.0-52.0 [facility] Comment on above: Performed By: #### 3 4529-8 #### OLESYA CAIN ([id number]) [facility] [address] [place] [address] Hemoglobin (Bld) [Mass/Vol] 10.5 g/dL Low 13.5-17.5 [facility] Comment on above: Performed By: #### 3 4529-8 #### OLESYA CAIN ([id number]) [facility] [address] [place] [address] MCH (RBC) [Entitic mass] 26.7 pg Normal 26.0-34.0 [facility] Comment on above: Performed By: #### 3 4529-8 #### OLESYA CAIN ([id number]) [facility] [address] [place] [address] MCHC (RBC) [Mass/Vol] 31.9 g/dL Low 32.0-36.0 [facility] Comment on above: Performed By: #### 3 4529-8 #### OLESYA CAIN ([id number]) [facility] [address] [place] [address] MCV (RBC) [Entitic vol] 84 fL Normal 80-100 [facility] Comment on above: Performed By: #### 3 4529-8 #### OLESYA CAIN ([id number]) [facility] [address] [place] [address] Nucleated RBC/100 WBC (Bld) [Ratio] 0.0 /100 WBCs Normal 0.0-0.0 [facility] Comment on above: Performed By: #### 3 4529-8 #### OLESYA CAIN ([id number]) [facility] [address] [place] [address] Platelets (Bld) [#/Vol] 270 x10*3/uL Normal 150-450 [facility] Comment on above: Performed By: #### 3 4529-8 #### OLESYA CAIN ([id number]) [facility] [address] [place] [address] RBC (Bld) [#/Vol] 3.93 x10*6/uL Low 4.50-5.90 [facility] Comment on above: Performed By: #### 3 4529-8 #### OLESYA CAIN ([id number]) [facility] [address] [place] [address] WBC (Bld) [#/Vol] 5.2 x10*3/uL Normal 4.4-11.3 [facility] Comment on above: Performed By: #### 3 4529-8 #### OLESYA CAIN ([id number]) [facility] [address] [place] [address] Glucose Test strip manual (B ld) [Mass/Vol]on 10-04-2024 Glucose [Mass/Vol] 243 mg/dL High 74 - 99 mg/dL [facility] Interpretation and review of laboratory results Abnormal [facility] Glucose [Mass/Vol] 243 mg/dL High 74-99 [facility] Comment on above: Performed By: #### 1 9123-9 #### OLESYA CAIN ([id number]) [facility] [address] [place] [address] Glucose [Mass/Vol] 224 mg/dL High 74 - 99 mg/dL [facility] Interpretation and review of laboratory results Abnormal [facility] Glucose [Mass/Vol] 224 mg/dL High 74-99 [facility] Comment on above: Performed By: #### 3 4529-8 #### OLESYA CAIN ([id number]) [facility] [address] [place] [address] Glucose [Mass/Vol] 171 mg/dL High 74 - 99 mg/dL [facility] Interpretation and review of laboratory results Abnormal [facility] Glucose [Mass/Vol] 171 mg/dL High 74-99 [facility] Comment on above: Performed By: #### 3 4529-8 #### OLESYA CAIN ([id number]) [facility] [address] [place] [address] Glucose [Mass/Vol] 175 mg/dL High 74 - 99 mg/dL [facility] Interpretation and review of laboratory results Abnormal [facility] Glucose [Mass/Vol] 175 mg/dL High 74-99 [facility] Comment on above: Performed By: #### 3 4529-8 #### OLESYA CAIN ([id number]) [facility] [address] [place] [address] Magnesiumon 10-04-2024 Magnesium [Mass/Vol] 1.81 mg/dL 1.60 - 2.40 mg/dL [facility] Magnesium [Mass/Vol] 1.81 mg/dL Normal 1.60-2.40 [facility] Comment on above: Performed By: #### 3 4529-8 #### OLESYA CAIN ([id number]) [facility] [address] [place] [address] No Panel Informationon 10-04 Interpretation and review of laboratory results Normal [facility] Phosphateon 10-04-2024 Phosphate [Mass/Vol] 4.3 mg/dL Normal 2.5-4.9 [facility] Comment on above: Result Comment: The performance characteristics of phosphorus testing in heparinized plasma have been validated by the individual laboratory site where testing is performed. Testing on heparinized plasma is not approved by the FDA; however, such approval is not necessary. Performed By: #### 3 4529-8 #### OLESYA CAIN ([id number]) [facility] [address] [place] [id number] Phosphoruson 10-04-2024 Phosphate [Mass/Vol] 4.3 mg/dL 2.5 - 4 .9 mg/dL [facility] Comment on above: The performance cheri acteristics of phosphorus testing in heparinized plasma have been validated by the individual laboratory site where testing is performed. Testing on heparinized plasma is not approved by the FDA; however, such approval is not necessary. US Abdomen RUQon 10-04-2024 Distended gallbladder. No additional findings to indicate acute cholecystitis otherwise. No wall thickening, pericholecystic fluid, or sonographic Scales sign is identified. Circumferential mural nodularity involving the gallbladder which could reflect areas of inspissated sludge, although masses are not entirely excluded. Suggest MR abdomen with and without contrast for further evaluation. MACRO: None Signed by: Silvio Barksdale 10/04/2024 10:50 AM Dictation workstation: [id number] MMODAL Interpreted By: Silvio Barksdale, STUDY: US RIGHT UPPER QUADRANT; 10/04/2024 8:45 am INDICATION: Signs/Symptoms:Diste nded gallbladder per CT scan. COMPARISON: None. ACCESSION NUMBER(S): [id number] ORDERING CLINICIAN: YAMILETH GILMAN TECHNIQUE: Multiple images of the right upper quadrant were obtained. FINDINGS: LIVER: The liver measures 16.1 cm . No focal lesions identified. GALLBLADDER: The gallbladder is distended. No significant wall thickening is identified. There are echogenic mural nodules circumferentially measuring up to 27 mm. Possible vascularity is demonstrated in the dominant nodule. Sonographic Scales's sign is negative. BILE DUCTS: No evidence of intra or extrahepatic biliary dilatation is identified; the common bile duct measures 0.4 cm. PANCREAS: Obscured by bowel gas. RIGHT KIDNEY: The right kidney measures 10.7 cm in length. The renal cortical echogenicity and thickness are within normal limit. No hydronephrosis or renal calculi are seen. 18 mm cyst is noted. No right upper quadrant free fluid identified. MMODAL Silvio Barksdale MD - 10/04/2024 Interpreted By: Silvio Barksdale, STUDY: US RIGHT UPPER QUADRANT; 10/04/2024 8:45 am INDICATION: Signs/Symptoms:Diste nded gallbladder per CT scan. COMPARISON: None. ACCESSION NUMBER(S): [id number] ORDERING CLINICIAN: YAMILETH GILMAN TECHNIQUE: Multiple images of the right upper quadrant were obtained. FINDINGS: LIVER: The liver measures 16.1 cm . No focal lesions identified. GALLBLADDER: The gallbladder is distended. No significant wall thickening is identified. There are echogenic mural nodules circumferentially measuring up to 27 mm. Possible vascularity is demonstrated in the dominant nodule. Sonographic Scales's sign is negative. BILE DUCTS: No evidence of intra or extrahepatic biliary dilatation is identified; the common bile duct measures 0.4 cm. PANCREAS: Obscured by bowel gas. RIGHT KIDNEY: The right kidney measures 10.7 cm in length. The renal cortical echogenicity and thickness are within normal limit. No hydronephrosis or renal calculi are seen. 18 mm cyst is noted. No right upper quadrant free fluid identified. IMPRESSION: Distended gallbladder. No additional findings to indicate acute cholecystitis otherwise. No wall thickening, pericholecystic fluid, or sonographic Scales sign is identified. Circumferential mural nodularity involving the gallbladder which could reflect areas of inspissated sludge, although masses are not entirely excluded. Suggest MR abdomen with and without contrast for further evaluation. MACRO: None Signed by: Silvio Barksdale 10/04/2024 10:50 AM Dictation workstation: [id number] [facility] Work Phone: Radiology Study observation (narrative) [facility] Work Phone: US Abdomen RUQOrdered By: [place] Barksdale on 10-04-2024 [facility] Work Phone: CBC panel Auto (Bld)on 10-03 Erythrocyte distribution width (RBC) [Ratio] 16.3 % High 11.5 - 14.5 % [facility] Hematocrit (Bld) [Volume fraction] 32.6 % Low 41.0 - 52.0 % [facility] Hemoglobin (Bld) [Mass/Vol] 10.6 g/dL Low 13.5 - 17.5 g/dL [facility] Interpretation and review of laboratory results Abnormal [facility] MCH (RBC) [Entitic mass] 27.2 pg 26.0 - 34.0 pg [facility] MCHC (RBC) [Mass/Vol] 32.5 g/dL 32.0 - 36.0 g/dL [facility] MCV (RBC) [Entitic vol] 84 fL 80 - 100 fL [facility] Nucleated RBC/100 WBC (Bld) [Ratio] 0 % [facility] Platelets (Bld) [#/Vol] 249 10*3/uL [facility] RBC (Bld) [#/Vol] 3.9 10*6/uL [facility] WBC (Bld) [#/Vol] 3.9 10*3/uL [facility] Erythrocyte distribution width (RBC) [Ratio] 16.3 % High 11.5-14.5 [facility] Comment on above: Performed By: #### 5 8410-2 #### OLESYA CAIN ([id number]) [facility] [address] [place] [address] Hematocrit (Bld) [Volume fraction] 32.6 % Low 41.0-52.0 [facility] Comment on above: Performed By: #### 5 8410-2 #### OLESYA CAIN ([id number]) [facility] [address] [place] [address] Hemoglobin (Bld) [Mass/Vol] 10.6 g/dL Low 13.5-17.5 [facility] Comment on above: Performed By: #### 5 8410-2 #### OLESYA CAIN ([id number]) [facility] [address] [place] [address] MCH (RBC) [Entitic mass] 27.2 pg Normal 26.0-34.0 [facility] Comment on above: Performed By: #### 5 8410-2 #### OLESYA CAIN ([id number]) [facility] [address] [place] [address] MCHC (RBC) [Mass/Vol] 32.5 g/dL Normal 32.0-36.0 [facility] Comment on above: Performed By: #### 5 8410-2 #### OLESAY CAIN ([id number]) [facility] [address] [place] [address] MCV (RBC) [Entitic vol] 84 fL Normal 80-100 [facility] Comment on above: Performed By: #### 5 8410-2 #### OLESYA CAIN ([id number]) [facility] [address] [place] [address] Nucleated RBC/100 WBC (Bld) [Ratio] 0.0 /100 WBCs Normal 0.0-0.0 [facility] Comment on above: Performed By: #### 5 8410-2 #### OLESYA CAIN ([id number]) [facility] [address] [place] [address] Platelets (Bld) [#/Vol] 249 x10*3/uL Normal 150-450 [facility] Comment on above: Performed By: #### 5 8410-2 #### OLESYA CAIN ([id number]) [facility] [place] [place] [address] [place] [address] RBC (Bld) [#/Vol] 3.90 x10*6/uL Low 4.50-5.90 [facility] Comment on above: Performed By: #### 5 8410-2 #### OLESYA CAIN ([id number]) [facility] [place] [place] [address] [place] [address] WBC (Bld) [#/Vol] 3.9 x10*3/uL Low 4.4-11.3 [facility] Comment on above: Performed By: #### 5 8410-2 #### OLESYA CAIN ([id number]) [facility] [facility] [place] [address] [place] [address] Comprehensive metabolic 2000 panelon 10-03-2024 Albumin BCP dye [Mass/Vol] 3.9 g/dL 3.4 - 5.0 g/dL [facility] ALP [Catalytic activity/Vol] 57 U/L 33 - 136 U/L [facility] ALT With P-5'-P [Catalytic activity/Vol] 11 U/L 10 - 52 U/L [facility] Comment on above: Patients treated wit h Sulfasalazine may generate falsely decreased results for ALT. Anion gap [Moles/Vol] 12 mmol/L 10 - 2 0 mmol/L [facility] AST With P-5'-P [Catalytic activity/Vol] 8 U/L Low 9 - 39 U/L [facility] Bilirubin [Mass/Vol] 0.5 mg/dL 0.0 - 1 .2 mg/dL [facility] Calcium [Mass/Vol] 9.3 mg/dL 8.6 - 10. 3 mg/dL [facility] Chloride [Moles/Vol] 99 mmol/L 98 - 10 7 mmol/L [facility] CO2 [Moles/Vol] 27 mmol/L 21 - 32 mmol/L [facility] Creatinine [Mass/Vol] 0.56 mg/dL 0.50 - 1.30 mg/dL [facility] eGFR - PINF [facility] Comment on above: Calculations of bartolome mated GFR are performed using the 2020 CKD-EPI Study Refit equation without the race variable for the IDMS-Traceable creatinine methods. https://jasn.asnjournals.org/content//ASN.87093 89762 Glucose [Mass/Vol] 169 mg/dL High 74 - 99 mg/dL [facility] Interpretation and review of laboratory results Abnormal [facility] Potassium [Moles/Vol] 4.1 mmol/L 3.5 - 5.3 mmol/L [facility] Protein [Mass/Vol] 6.2 g/dL Low 6.4 - 8.2 g/dL [facility] Sodium [Moles/Vol] 134 mmol/L Low 136 - 145 mmol/L [facility] Urea nitrogen [Mass/Vol] 19 mg/dL 6 - 23 mg/dL [facility] Albumin BCP dye [Mass/Vol] 3.9 g/dL Normal 3.4-5.0 [facility] Comment on above: Performed By: #### 5 8410-2 #### OLESYA CAIN ([id number]) [facility] [address] [place] [address] ALP [Catalytic activity/Vol] 57 U/L Normal 33-136 [facility] Comment on above: Performed By: #### 5 8410-2 #### OLESYA CAIN ([id number]) [facility] [address] [place] [address] ALT With P-5'-P [Catalytic activity/Vol] 11 U/L Normal 10-52 [facility] Comment on above: Result Comment: Gisella ents treated with Sulfasalazine may generate falsely decreased results for ALT. Performed By: #### 5 8410-2 #### OLESYA CAIN ([id number]) [facility] [address] [place] [address] Anion gap [Moles/Vol] 12 mmol/L Normal 10-20 [facility] Comment on above: Performed By: #### 5 8410-2 #### OLESYA CAIN ([id number]) [facility] [address] [place] [address] AST With P-5'-P [Catalytic activity/Vol] 8 U/L Low 9-39 [facility] Comment on above: Performed By: #### 5 8410-2 #### OLESYA CAIN ([id number]) [facility] [address] [place] [address] Bilirubin [Mass/Vol] 0.5 mg/dL Normal 0.0-1.2 [facility] Comment on above: Performed By: #### 5 8410-2 #### OLESYA CAIN ([id number]) [facility] [address] [place] [address] Calcium [Mass/Vol] 9.3 mg/dL Normal 8.6-10.3 [facility] Comment on above: Performed By: #### 5 8410-2 #### OLESYA CAIN ([id number]) [facility] [address] [place] [address] Chloride [Moles/Vol] 99 mmol/L Normal 98-107 [facility] Comment on above: Performed By: #### 5 8410-2 #### OLESYA CAIN ([id number]) [facility] [address] [place] [address] CO2 [Moles/Vol] 27 mmol/L Normal 21-32 [facility] Comment on above: Performed By: #### 5 8410-2 #### OLESYA CAIN ([id number]) [facility] [address] [place] [address] Creatinine [Mass/Vol] 0.56 mg/dL Normal 0.50-1.30 [facility] Comment on above: Performed By: #### 5 8410-2 #### OLESYA CAIN ([id number]) [facility] [address] [place] [address] GFR/1.73 sq M.predicted MDRD (S/P/Bld) [Vol rate/Area] mL/min/{1.73_m2} Normal >60 [facility] Comment on above: Result Comment: Calc ulations of estimated GFR are performed using the 2020 CKD-EPI Study Refit equation without the race variable for the IDMS-Traceable creatinine methods. https://jasn.asnjournals.org/content//ASN.07449 43026 Performed By: #### 5 8410-2 #### OLESYA CAIN ([id number]) [facility] [address] [place] [address] Glucose [Mass/Vol] 169 mg/dL High 74-99 [facility] Comment on above: Performed By: #### 5 8410-2 #### OLESYA CAIN ([id number]) [facility] [address] [place] [address] Potassium [Moles/Vol] 4.1 mmol/L Normal 3.5-5.3 [facility] Comment on above: Performed By: #### 5 8410-2 #### OLESYA CAIN ([id number]) [facility] [address] [place] [address] Protein [Mass/Vol] 6.2 g/dL Low 6.4-8.2 [facility] Comment on above: Performed By: #### 5 8410-2 #### OLESYA CAIN ([id number]) [facility] [address] [place] [address] Sodium [Moles/Vol] 134 mmol/L Low 136-145 [facility] Comment on above: Performed By: #### 5 8410-2 #### OLESYA CAIN ([id number]) [facility] [address] [place] [address] Urea nitrogen [Mass/Vol] 19 mg/dL Normal 6-23 [facility] Comment on above: Performed By: #### 5 8410-2 #### OLESYA CAIN ([id number]) [facility] [address] [place] [address] Extra Urine Alba Tubeon 12-0 Extra Tube Hold for add-ons. [facility] Comment on above: Auto resulted. [facility] Glucose Test strip manual (B ld) [Mass/Vol]on 10-03-2024 Glucose [Mass/Vol] 199 mg/dL High 74 - 99 mg/dL [facility] Interpretation and review of laboratory results Abnormal [facility] Glucose [Mass/Vol] 199 mg/dL High 74-99 [facility] Comment on above: Performed By: #### 3 4529-8 #### OLESYA CAIN ([id number]) [facility] [address] [place] [address] Glucose [Mass/Vol] 156 mg/dL High 74 - 99 mg/dL [facility] Interpretation and review of laboratory results Abnormal [facility] Glucose [Mass/Vol] 156 mg/dL High 74-99 [facility] Comment on above: Performed By: #### 5 8410-2 #### OLESYA CAIN ([id number]) [facility] [address] [place] [address] Glucose [Mass/Vol] 171 mg/dL High 74 - 99 mg/dL [facility] Interpretation and review of laboratory results Abnormal [facility] Glucose [Mass/Vol] 171 mg/dL High 74-99 [facility] Comment on above: Performed By: #### 5 8410-2 #### OLESYA CAIN ([id number]) [facility] [address] [place] [address] Glucose [Mass/Vol] 183 mg/dL High 74 - 99 mg/dL [facility] Interpretation and review of laboratory results Abnormal [facility] Glucose [Mass/Vol] 183 mg/dL High 74-99 [facility] Comment on above: Performed By: #### 5 8410-2 #### OLESYA CAIN ([id number]) [facility] [address] [place] [address] Hemoglobin and Hematocrit pa radha (Bld)on 10-03-2024 Hematocrit (Bld) [Volume fraction] 32.2 % Low 41.0 - 52.0 % [facility] Hemoglobin (Bld) [Mass/Vol] 10.6 g/dL Low 13.5 - 17.5 g/dL [facility] Interpretation and review of laboratory results Abnormal [facility] Hematocrit (Bld) [Volume fraction] 32.2 % Low 41.0-52.0 [facility] Comment on above: Performed By: #### 3 4529-8 #### OLESYA CAIN ([id number]) [facility] [address] [place] [address] Hemoglobin (Bld) [Mass/Vol] 10.6 g/dL Low 13.5-17.5 [facility] Comment on above: Performed By: #### 3 4529-8 #### OLESYA CAIN ([id number]) [facility] [address] [place], [place] [id number] Magnesiumon 10-03-2024 Magnesium [Mass/Vol] 1.79 mg/dL 1.60 - 2.40 mg/dL [facility] Magnesium [Mass/Vol] 1.79 mg/dL Normal 1.60-2.40 [facility] Comment on above: Performed By: #### 5 8410-2 #### OLESYA CAIN ([id number]) [facility] [address] [place], [place] [id number] No Panel Informationon 10-03 Interpretation and review of laboratory results Normal [facility] Phosphateon 10-03-2024 Phosphate [Mass/Vol] 4.3 mg/dL Normal 2.5-4.9 [facility] Comment on above: Result Comment: The performance characteristics of phosphorus testing in heparinized plasma have been validated by the individual laboratory site where testing is performed. Testing on heparinized plasma is not approved by the FDA; however, such approval is not necessary. Performed By: #### 5 8410-2 #### OLESYA CAIN ([id number]) [facility] [address] [place] [address] Phosphoruson 10-03-2024 Phosphate [Mass/Vol] 4.3 mg/dL 2.5 - 4 .9 mg/dL [facility] Comment on above: The performance cheri acteristics of phosphorus testing in heparinized plasma have been validated by the individual laboratory site where testing is performed. Testing on heparinized plasma is not approved by the FDA; however, such approval is not necessary. CBC panel Auto (Bld)on 10-02 Erythrocyte distribution width (RBC) [Ratio] 16.2 % High 11.5 - 14.5 % [facility] Hematocrit (Bld) [Volume fraction] 35.2 % Low 41.0 - 52.0 % [facility] Hemoglobin (Bld) [Mass/Vol] 10.8 g/dL Low 13.5 - 17.5 g/dL [facility] Interpretation and review of laboratory results Abnormal [facility] MCH (RBC) [Entitic mass] 27 pg 26.0 - 34.0 pg [facility] MCHC (RBC) [Mass/Vol] 30.7 g/dL Low 32.0 - 36.0 g/dL [facility] MCV (RBC) [Entitic vol] 88 fL 80 - 100 fL [facility] Nucleated RBC/100 WBC (Bld) [Ratio] 0 % [facility] Platelets (Bld) [#/Vol] 250 10*3/uL [facility] RBC (Bld) [#/Vol] 4 10*6/uL Low [facility] WBC (Bld) [#/Vol] 4.3 10*3/uL Low [facility] Erythrocyte distribution width (RBC) [Ratio] 16.2 % High 11.5-14.5 [facility] Comment on above: Performed By: #### 5 8410-2 #### OLESYA CAIN ([id number]) [facility] [address] [place] [address] Hematocrit (Bld) [Volume fraction] 35.2 % Low 41.0-52.0 [facility] Comment on above: Performed By: #### 5 8410-2 #### OLESYA CAIN ([id number]) [facility] [address] [place] [address] Hemoglobin (Bld) [Mass/Vol] 10.8 g/dL Low 13.5-17.5 [facility] Comment on above: Performed By: #### 5 8410-2 #### OLESYA CAIN ([id number]) [facility] [address] [place] [address] MCH (RBC) [Entitic mass] 27.0 pg Normal 26.0-34.0 [facility] Comment on above: Performed By: #### 5 8410-2 #### OLESYA CAIN ([id number]) [facility] [address] [place] [address] MCHC (RBC) [Mass/Vol] 30.7 g/dL Low 32.0-36.0 [facility] Comment on above: Performed By: #### 5 8410-2 #### OLESYA CAIN ([id number]) [facility] [address] [place] [address] MCV (RBC) [Entitic vol] 88 fL Normal 80-100 [facility] Comment on above: Performed By: #### 5 8410-2 #### OLESYA CAIN ([id number]) [facility] [address] [place] [address] Nucleated RBC/100 WBC (Bld) [Ratio] 0.0 /100 WBCs Normal 0.0-0.0 [facility] Comment on above: Performed By: #### 5 8410-2 #### OLESYA CAIN ([id number]) [facility] [address] [place] [address] Platelets (Bld) [#/Vol] 250 x10*3/uL Normal 150-450 [facility] Comment on above: Performed By: #### 5 8410-2 #### OLESYA CAIN ([id number]) [facility] [address] [place] [address] RBC (Bld) [#/Vol] 4.00 x10*6/uL Low 4.50-5.90 [facility] Comment on above: Performed By: #### 5 8410-2 #### OLESYA CAIN ([id number]) [facility] [address] [place] [address] WBC (Bld) [#/Vol] 4.3 x10*3/uL Low 4.4-11.3 [facility] Comment on above: Performed By: #### 5 8410-2 #### OLESYA CAIN ([id number]) [facility] [id number] [place], [place] [id number] CT ABDOMEN PELVIS WO IV CONT [facility] 10-02-2024 CT ABDOMEN PELVIS WO IV CONTRAST Interpreted By: Jermaine Beckford, STUDY: CT ABDOMEN PELVIS WO IV CONTRAST; 10/02/2024 8:17 am INDICATION: Signs/Symptoms:hemat uria with clots COMPARISON: None ACCESSION NUMBER(S): [id number] ORDERING CLINICIAN: HONG GRANT TECHNIQUE: Spiral axial unenhanced images were obtained from the upper abdomen to the symphysis pubis. Oral contrast was not administered. All CT examinations are performed with one or more of the following dose reduction techniques: Automated Exposure Control, adjustment of mA and/or kV according to patient size, or use of iterative reconstruction techniques. FINDINGS: Lung bases: The lung bases are clear. Liver: Normal in size without focal lesions. Gallbladder: Distended gallbladder, measuring up to 5.6 cm in transverse dimension, with possible gallstones and sludge. Spleen: Normal in size without focal lesions. Pancreas: Unremarkable. Adrenal glands: No focal lesions. The kidneys are normal in size and position. Complex cystic lesion measuring 9.4 cm is noted in the upper pole of the left kidney containing partially calcified septations. There also a couple of smaller cysts in the left kidney measuring up to 2 cm. There are no renal calculi or hydronephrosis. No abnormal calcifications are seen within the course of the ureters or within the bladder. The bladder is decompressed by a Cyr catheter, with apparent wall thickening. The prostate gland is enlarged, measuring 6.5 cm, projecting in the bladder floor. Copious amount of fecal material is noted throughout the colon, suggestive of constipation, without bowel obstruction. The appendix is seen and appears normal. There is no free air or free fluid in the abdomen and pelvis. Atherosclerotic calcifications involve the aorta, without focal aneurysm. There is disc disease involving the lower lumbar spine, especially the L5-S1 level, with minimal anterolisthesis of the L5 over the S1 vertebra. IMPRESSION: 1. Large complex cystic lesion involving the upper pole of the left kidney, most likely septated/partially calcified cysts. In the setting of hematuria this finding can be further evaluated with nonemergent MRI. 2. Suboptimally evaluated decompressed urinary bladder. In the setting of hematuria further evaluation can be obtained with cystoscopy. 3. Distended gallbladder containing gallstones and possible sludge; this can be further evaluated with ultrasound if clinically indicated. Signed by: Jermaine Beckford 10/02/2024 10:27 AM Dictation workstation: [id number] [facility] CT Abdomen WO contraston 1. Large complex cystic lesion involving the upper pole of the left kidney, most likely septated/partially calcified cysts. In the setting of hematuria this finding can be further evaluated with nonemergent MRI. 2. Suboptimally evaluated decompressed urinary bladder. In the setting of hematuria further evaluation can be obtained with cystoscopy. 3. Distended gallbladder containing gallstones and possible sludge; this can be further evaluated with ultrasound if clinically indicated. Signed by: Jermaine Beckford 10/02/2024 10:27 AM Dictation workstation: [id number] [facility] Interpreted By: Jermaine Beckford, STUDY: CT ABDOMEN PELVIS WO IV CONTRAST; 10/02/2024 8:17 am INDICATION: Signs/Symptoms:hemat uria with clots COMPARISON: None ACCESSION NUMBER(S): [id number] ORDERING CLINICIAN: HONG GRANT TECHNIQUE: Spiral axial unenhanced images were obtained from the upper abdomen to the symphysis pubis. Oral contrast was not administered. All CT examinations are performed with one or more of the following dose reduction techniques: Automated Exposure Control, adjustment of mA and/or kV according to patient size, or use of iterative reconstruction techniques. FINDINGS: Lung bases: The lung bases are clear. Liver: Normal in size without focal lesions. Gallbladder: Distended gallbladder, measuring up to 5.6 cm in transverse dimension, with possible gallstones and sludge. Spleen: Normal in size without focal lesions. Pancreas: Unremarkable. Adrenal glands: No focal lesions. The kidneys are normal in size and position. Complex cystic lesion measuring 9.4 cm is noted in the upper pole of the left kidney containing partially calcified septations. There also a couple of smaller cysts in the left kidney measuring up to 2 cm. There are no renal calculi or hydronephrosis. No abnormal calcifications are seen within the course of the ureters or within the bladder. The bladder is decompressed by a Cyr catheter, with apparent wall thickening. The prostate gland is enlarged, measuring 6.5 cm, projecting in the bladder floor. Copious amount of fecal material is noted throughout the colon, suggestive of constipation, without bowel obstruction. The appendix is seen and appears normal. There is no free air or free fluid in the abdomen and pelvis. Atherosclerotic calcifications involve the aorta, without focal aneurysm. There is disc disease involving the lower lumbar spine, especially the L5-S1 level, with minimal anterolisthesis of the L5 over the S1 vertebra. [facility] Jermaine Beckford MD - 10/02/2024 Interpreted By: Jermaine Beckford, STUDY: CT ABDOMEN PELVIS WO IV CONTRAST; 10/02/2024 8:17 am INDICATION: Signs/Symptoms:hemat uria with clots COMPARISON: None ACCESSION NUMBER(S): [id number] ORDERING CLINICIAN: HONG GRANT TECHNIQUE: Spiral axial unenhanced images were obtained from the upper abdomen to the symphysis pubis. Oral contrast was not administered. All CT examinations are performed with one or more of the following dose reduction techniques: Automated Exposure Control, adjustment of mA and/or kV according to patient size, or use of iterative reconstruction techniques. FINDINGS: Lung bases: The lung bases are clear. Liver: Normal in size without focal lesions. Gallbladder: Distended gallbladder, measuring up to 5.6 cm in transverse dimension, with possible gallstones and sludge. Spleen: Normal in size without focal lesions. Pancreas: Unremarkable. Adrenal glands: No focal lesions. The kidneys are normal in size and position. Complex cystic lesion measuring 9.4 cm is noted in the upper pole of the left kidney containing partially calcified septations. There also a couple of smaller cysts in the left kidney measuring up to 2 cm. There are no renal calculi or hydronephrosis. No abnormal calcifications are seen within the course of the ureters or within the bladder. The bladder is decompressed by a Cyr catheter, with apparent wall thickening. The prostate gland is enlarged, measuring 6.5 cm, projecting in the bladder floor. Copious amount of fecal material is noted throughout the colon, suggestive of constipation, without bowel obstruction. The appendix is seen and appears normal. There is no free air or free fluid in the abdomen and pelvis. Atherosclerotic calcifications involve the aorta, without focal aneurysm. There is disc disease involving the lower lumbar spine, especially the L5-S1 level, with minimal anterolisthesis of the L5 over the S1 vertebra. IMPRESSION: 1. Large complex cystic lesion involving the upper pole of the left kidney, most likely septated/partially calcified cysts. In the setting of hematuria this finding can be further evaluated with nonemergent MRI. 2. Suboptimally evaluated decompressed urinary bladder. In the setting of hematuria further evaluation can be obtained with cystoscopy. 3. Distended gallbladder containing gallstones and possible sludge; this can be further evaluated with ultrasound if clinically indicated. Signed by: Jermaine Beckford 10/02/2024 10:27 AM Dictation workstation: [id number] [facility] Work Phone: Radiology Study observation (narrative) [facility] Work Phone: CT Abdomen WO contrastOrdere d By: Jermaine Beckford on 10-02-2024 [facility] Work Phone: Comprehensive metabolic 2000 panelon 10-02-2024 Albumin BCP dye [Mass/Vol] 4 g/dL 3.4 - 5.0 g/dL [facility] ALP [Catalytic activity/Vol] 60 U/L 33 - 136 U/L [facility] ALT With P-5'-P [Catalytic activity/Vol] 11 U/L 10 - 52 U/L [facility] Comment on above: Patients treated wit h Sulfasalazine may generate falsely decreased results for ALT. Anion gap [Moles/Vol] 12 mmol/L 10 - 2 0 mmol/L [facility] AST With P-5'-P [Catalytic activity/Vol] 8 U/L Low 9 - 39 U/L [facility] Bilirubin [Mass/Vol] 0.5 mg/dL 0.0 - 1 .2 mg/dL [facility] Calcium [Mass/Vol] 9.2 mg/dL 8.6 - 10. 3 mg/dL [facility] Chloride [Moles/Vol] 100 mmol/L 98 - 10 7 mmol/L [facility] CO2 [Moles/Vol] 27 mmol/L 21 - 32 mmol/L [facility] Creatinine [Mass/Vol] 0.46 mg/dL Low 0.50 - 1.30 mg/dL [facility] eGFR - PINF [facility] Comment on above: Calculations of bartolome mated GFR are performed using the 2020 CKD-EPI Study Refit equation without the race variable for the IDMS-Traceable creatinine methods. https://jasn.asnjournals.org/content//ASN.25918 85122 Glucose [Mass/Vol] 181 mg/dL High 74 - 99 mg/dL [facility] Interpretation and review of laboratory results Abnormal [facility] Potassium [Moles/Vol] 4 mmol/L 3.5 - 5.3 mmol/L [facility] Protein [Mass/Vol] 6.4 g/dL 6.4 - 8.2 g/dL [facility] Sodium [Moles/Vol] 135 mmol/L Low 136 - 145 mmol/L [facility] Urea nitrogen [Mass/Vol] 20 mg/dL 6 - 23 mg/dL [facility] Albumin BCP dye [Mass/Vol] 4.0 g/dL Normal 3.4-5.0 [facility] Comment on above: Performed By: #### 2 4323-8 #### OLESYA CAIN ([id number]) [facility] [place] [address] [place] [address] ALP [Catalytic activity/Vol] 60 U/L Normal 33-136 [facility] Comment on above: Performed By: #### 2 4323-8 #### OLESYA CAIN ([id number]) [facility] [address] [place] [address] ALT With P-5'-P [Catalytic activity/Vol] 11 U/L Normal 10-52 [facility] Comment on above: Result Comment: Gisella ents treated with Sulfasalazine may generate falsely decreased results for ALT. Performed By: #### 2 4323-8 #### OLESYA CAIN ([id number]) [facility] [address] [place] [address] Anion gap [Moles/Vol] 12 mmol/L Normal 10-20 [facility] Comment on above: Performed By: #### 2 4323-8 #### OLESYA CAIN ([id number]) [facility] [address] [place] [address] AST With P-5'-P [Catalytic activity/Vol] 8 U/L Low 9-39 [facility] Comment on above: Performed By: #### 2 4323-8 #### OLESYA CAIN ([id number]) [facility] [address] [place] [address] Bilirubin [Mass/Vol] 0.5 mg/dL Normal 0.0-1.2 [facility] Comment on above: Performed By: #### 2 4323-8 #### OLESYA CAIN ([id number]) [facility] [place] [address] [place] [address] Calcium [Mass/Vol] 9.2 mg/dL Normal 8.6-10.3 [facility] Comment on above: Performed By: #### 2 4323-8 #### OLESYA CAIN ([id number]) [facility] [address] [place] [address] Chloride [Moles/Vol] 100 mmol/L Normal 98-107 [facility] Comment on above: Performed By: #### 2 4323-8 #### OLESYA CAIN ([id number]) [facility] [place] [address] [place] [address] CO2 [Moles/Vol] 27 mmol/L Normal 21-32 [facility] Comment on above: Performed By: #### 2 4323-8 #### OLESYA CAIN ([id number]) [facility] [address] [place] [address] Creatinine [Mass/Vol] 0.46 mg/dL Low 0.50-1.30 [facility] Comment on above: Performed By: #### 2 4323-8 #### OLESYA CAIN ([id number]) [facility] [address] [place] [address] GFR/1.73 sq M.predicted MDRD (S/P/Bld) [Vol rate/Area] mL/min/{1.73_m2} Normal >60 [facility] Comment on above: Result Comment: Calc ulations of estimated GFR are performed using the 2020 CKD-EPI Study Refit equation without the race variable for the IDMS-Traceable creatinine methods. https://jasn.asnjournals.org/content/early/ASN.91867 01102 Performed By: #### 2 4323-8 #### OLESYA CAIN ([id number]) [facility] [place] [address] [place] [address] Glucose [Mass/Vol] 181 mg/dL High 74-99 [facility] Comment on above: Performed By: #### 2 4323-8 #### OLESYA CAIN ([id number]) [facility] [address] [place] [address] Potassium [Moles/Vol] 4.0 mmol/L Normal 3.5-5.3 [facility] Comment on above: Performed By: #### 2 4323-8 #### OLESYA CAIN ([id number]) [facility] [address] [place] [address] Protein [Mass/Vol] 6.4 g/dL Normal 6.4-8.2 [facility] Comment on above: Performed By: #### 2 4323-8 #### OLESYA CAIN ([id number]) [facility] [address] [place] [address] Sodium [Moles/Vol] 135 mmol/L Low 136-145 [facility] Comment on above: Performed By: #### 2 4323-8 #### OLESYA CAIN ([id number]) [facility] [address] [place] [address] Urea nitrogen [Mass/Vol] 20 mg/dL Normal 6-23 [facility] Comment on above: Performed By: #### 2 4323-8 #### OLESYA CAIN ([id number]) [facility] [address] [place] [address] ECG 12 LeadOrdered By: Luis Noel on 10-02-2024 Atrial Rate 55 BPM [facility] Work Phone: P [place] 13 degrees [facility] Work Phone: P Offset 203 [facility] Work Phone: P Onset 141 [facility] Work Phone: MI Interval 168 ms [facility] Work Phone: Q Onset 225 [facility] Work Phone: QRS Count 9 beats [facility] Work Phone: QRS Duration 106 ms [facility] Work Phone: QT Interval 434 ms [facility] Work Phone: QTC Calculation(Bazett) 415 ms [facility] Work Phone: QTC Fredericia 421 ms [facility] Work Phone: R [place] -25 degrees [facility] Work Phone: T [place] -13 degrees [facility] Work Phone: T Offset 442 ms [facility] Work Phone: Ventricular Rate 55 BPM [facility] Work Phone: [facility] Work Phone: ECG 12 Leadon 10-02-2024 Sinus bradycardia Moderate voltage criteria for LVH, may be normal variant No previous ECGs available Reconfirmed by Luis Noel ([id number]) on 10/02/2024 3:37:50 PM MUSE Luis Noel MD - 10/02/2024 Sinus bradycardia Moderate voltage criteria for LVH, may be normal variant No previous ECGs available Reconfirmed by Luis Noel ([id number]) on 10/02/2024 3:37:50 PM [facility] Work Phone: ECG 12-LEADon 10-02-2024 ECG 12-LEAD Ventricular Rate 55 Atrial Rate 55 P-R Interval 168 QRS Duration 106 Q-T Interval 434 QTC Calculation(Bazett) 415 P [place]ford 13 R [place]ford -25 T [place]ford -13 QRS Count 9 Q Onset 225 P Onset 141 P Offset 203 T Offset 442 QTC Fredericia 421 Diagnosis Sinus bradycardia Moderate voltage criteria for LVH, may be normal variant No previous ECGs available Reconfirmed by Luis Noel ([id number]) on 10/02/2024 3:37:50 PM Normal [facility] Glucose Test strip manual (B ld) [Mass/Vol]on 10-02-2024 Glucose [Mass/Vol] 192 mg/dL High 74 - 99 mg/dL [facility] Interpretation and review of laboratory results Abnormal [facility] Glucose [Mass/Vol] 192 mg/dL High 74-99 [facility] Comment on above: Performed By: #### 5 8410-2 #### OLESYA CAIN ([id number]) [facility] [address] [place] [address] Glucose [Mass/Vol] 179 mg/dL High 74 - 99 mg/dL [facility] Interpretation and review of laboratory results Abnormal [facility] Glucose [Mass/Vol] 179 mg/dL High 74-99 [facility] Comment on above: Performed By: #### 5 8410-2 #### OLESYA CAIN ([id number]) [facility] [address] [place] [address] Glucose [Mass/Vol] 188 mg/dL High 74 - 99 mg/dL [facility] Interpretation and review of laboratory results Abnormal [facility] Glucose [Mass/Vol] 188 mg/dL High 74-99 [facility] Comment on above: Performed By: #### 2 341-6 #### OLESYA CAIN ([id number]) [facility] [address] [place] [address] Glucose [Mass/Vol] 173 mg/dL High 74 - 99 mg/dL [facility] Interpretation and review of laboratory results Abnormal [facility] Glucose [Mass/Vol] 173 mg/dL High 74-99 [facility] Comment on above: Performed By: #### 2 341-6 #### OLESYA CAIN ([id number]) [facility] [address] [place] [address] Glucose [Mass/Vol] 160 mg/dL High 74 - 99 mg/dL [facility] Comment on above: RN NOTIFIED Interpretation and review of laboratory results Abnormal [facility] Glucose [Mass/Vol] 160 mg/dL High 74-99 [facility] Comment on above: Result Comment: [facility] [place] Performed By: #### 2 341-6 #### OLESYA CAIN ([id number]) [facility] [address] [place] [address] Magnesiumon 10-02-2024 Magnesium [Mass/Vol] 1.69 mg/dL 1.60 - 2.40 mg/dL [facility] Magnesium [Mass/Vol] 1.69 mg/dL Normal 1.60-2.40 [facility] Comment on above: Performed By: #### 1 9123-9 #### OLESYA CAIN ([id number]) [facility] [address] [place] [address] No Panel Informationon 10-02 Interpretation and review of laboratory results Normal [facility] PT and aPTT panel Coag (PPP) on 10-02-2024 aPTT Coag (PPP) [Time] 32 s [facility] INR Coag (PPP) [Relative time] 1.2 {INR} High 0.9 - 1.1 [facility] Interpretation and review of laboratory results Abnormal [facility] PT Coag (PPP) [Time] 13.1 s High [facility] The APTT is no longer used for monitoring Unfractionated Heparin Therapy. For monitoring Heparin Therapy, use the Heparin Assay. [facility] aPTT Coag (PPP) [Time] 32 s Normal 27-38 [facility] Comment on above: Order Comment: The A PTT is no longer used for monitoring Unfractionated Heparin Therapy. For monitoring Heparin Therapy, use the Heparin Assay. Performed By: #### 3 4529-8 #### OLESYA CAIN ([id number]) [facility] [address] [place] [address] INR Coag (PPP) [Relative time] 1.2 High 0.9-1.1 [facility] Comment on above: Order Comment: The A PTT is no longer used for monitoring Unfractionated Heparin Therapy. For monitoring Heparin Therapy, use the Heparin Assay. Performed By: #### 3 4529-8 #### OLESYA CAIN ([id number]) [facility] [address] [place] [address] PT Coag (PPP) [Time] 13.1 s High 9.8-12.8 [facility] Comment on above: Order Comment: The A PTT is no longer used for monitoring Unfractionated Heparin Therapy. For monitoring Heparin Therapy, use the Heparin Assay. Performed By: #### 3 4529-8 #### OLESYA CAIN ([id number]) [facility] [address] [place] [address] Phosphateon 10-02-2024 Phosphate [Mass/Vol] 3.1 mg/dL Normal 2.5-4.9 [facility] Comment on above: Result Comment: The performance characteristics of phosphorus testing in heparinized plasma have been validated by the individual laboratory site where testing is performed. Testing on heparinized plasma is not approved by the FDA; however, such approval is not necessary. Performed By: #### 2 777-1 #### OLESYA CAIN ([id number]) [facility] [address] [place] [address] Phosphoruson 10-02-2024 Phosphate [Mass/Vol] 3.1 mg/dL 2.5 - 4 .9 mg/dL [facility] Comment on above: The performance cheri acteristics of phosphorus testing in heparinized plasma have been validated by the individual laboratory site where testing is performed. Testing on heparinized plasma is not approved by the FDA; however, such approval is not necessary. US RIGHT UPPER QUADRANTon US RIGHT UPPER QUADRANT Interpreted By: Silvio Barksdale, STUDY: US RIGHT UPPER QUADRANT; 10/04/2024 8:45 am INDICATION: Signs/Symptoms:Diste nded gallbladder per CT scan. COMPARISON: None. ACCESSION NUMBER(S): [id number] ORDERING CLINICIAN: YAMILETH GILMAN TECHNIQUE: Multiple images of the right upper quadrant were obtained. FINDINGS: LIVER: The liver measures 16.1 cm . No focal lesions identified. GALLBLADDER: The gallbladder is distended. No significant wall thickening is identified. There are echogenic mural nodules circumferentially measuring up to 27 mm. Possible vascularity is demonstrated in the dominant nodule. Sonographic Scales's sign is negative. BILE DUCTS: No evidence of intra or extrahepatic biliary dilatation is identified; the common bile duct measures 0.4 cm. PANCREAS: Obscured by bowel gas. RIGHT KIDNEY: The right kidney measures 10.7 cm in length. The renal cortical echogenicity and thickness are within normal limit. No hydronephrosis or renal calculi are seen. 18 mm cyst is noted. No right upper quadrant free fluid identified. IMPRESSION: Distended gallbladder. No additional findings to indicate acute cholecystitis otherwise. No wall thickening, pericholecystic fluid, or sonographic Scales sign is identified. Circumferential mural nodularity involving the gallbladder which could reflect areas of inspissated sludge, although masses are not entirely excluded. Suggest MR abdomen with and without contrast for further evaluation. MACRO: None Signed by: Silvio Barksdale 10/04/2024 10:50 AM Dictation workstation: [id number] Normal [facility] Urinalysis complete W Reflex Culture panel (U)on 10-02-2024 Appearance (U) Clear Clear [facility] Bilirubin (U) [Mass/Vol] Negative NEGATIVE [facility] Color (U) Colorless Abnormal Light-Yellow , Yellow, Dark-Yellow [facility] Glucose Auto test strip (U) [Mass/Vol] Normal Normal mg/dL [facility] Interpretation and review of laboratory results Abnormal [facility] Interpretation and review of laboratory results Normal [facility] Ketones (U) [Mass/Vol] Negative NEGAT FARHEEN mg/dL [facility] Leukocyte esterase Auto test strip Ql (U) Negative NEGATIVE [facility] Nitrite Auto test strip Ql (U) Negative NEGATIVE [facility] pH (U) 6.5 [pH] 5.0, 5.5, 6.0, 6.5, 7.0, 7.5, 8.0 [facility] Protein (U) [Mass/Vol] Negative NEGAT FARHEEN, 10 (TRACE), 20 (TRACE) mg/dL [facility] RBC (U) [#/Vol] OVER (3+) Abnormal NEGATIVE [facility] RBC Auto (Urine sed) [#/Area] 3-5 NONE, 1-2, 3-5 /HPF [facility] Specific gravity (U) [Rel density] 1.011 1.005 - 1.035 [facility] Urobilinogen (U) [Mass/Vol] Normal Normal mg/dL [facility] WBC Auto (Urine sed) [#/Area] 1-5 1-5, NONE /HPF [facility] OVER is reported when the result is greater than the clinically reportable range. [facility] Appearance (U) Clear Normal Clear [facility] Comment on above: Order Comment: Obtai n sample from current catheter, was changed in last 48 hoursOVER is reported when the result is greater than the clinically reportable range. Performed By: #### 5 8410-2 #### OLESYA CAIN ([id number]) [facility] [address] [place] [address] Bilirubin (U) [Mass/Vol] Negative Normal NEGATIVE [facility] Comment on above: Order Comment: Obtai n sample from current catheter, was changed in last 48 hoursOVER is reported when the result is greater than the clinically reportable range. Performed By: #### 5 8410-2 #### OLESYA CAIN ([id number]) [facility] [address] [place] [address] Color (U) Colorless Normal Light-Yellow , Yellow, Dark-Yellow [facility] Comment on above: Order Comment: Obtai n sample from current catheter, was changed in last 48 hoursOVER is reported when the result is greater than the clinically reportable range. Performed By: #### 5 8410-2 #### OLESYA CAIN ([id number]) [facility] [address] [place] [address] Glucose Auto test strip (U) [Mass/Vol] Normal Normal Normal [facility] Comment on above: Order Comment: Obtai n sample from current catheter, was changed in last 48 hoursOVER is reported when the result is greater than the clinically reportable range. Performed By: #### 5 8410-2 #### OLESYA CAIN ([id number]) [facility] [address] [place] [address] Ketones (U) [Mass/Vol] Negative Normal NEGATIVE [facility] Comment on above: Order Comment: Obtai n sample from current catheter, was changed in last 48 hoursOVER is reported when the result is greater than the clinically reportable range. Performed By: #### 5 8410-2 #### OLESYA CAIN ([id number]) [facility] [address] [place] [address] Leukocyte esterase Auto test strip Ql (U) Negative Normal NEGATIVE [facility] Comment on above: Order Comment: Obtai n sample from current catheter, was changed in last 48 hoursOVER is reported when the result is greater than the clinically reportable range. Performed By: #### 5 8410-2 #### OLESYA CAIN ([id number]) [facility] [address] [place] [address] Nitrite Auto test strip Ql (U) Negative Normal NEGATIVE [facility] Comment on above: Order Comment: Obtai n sample from current catheter, was changed in last 48 hoursOVER is reported when the result is greater than the clinically reportable range. Performed By: #### 5 8410-2 #### OLESYA CAIN ([id number]) [facility] [address] [place] [address] pH (U) 6.5 [pH] Normal 5.0, 5.5, 6.0, 6.5, 7.0, 7.5, 8.0 [facility] Comment on above: Order Comment: Obtai n sample from current catheter, was changed in last 48 hoursOVER is reported when the result is greater than the clinically reportable range. Performed By: #### 5 8410-2 #### OLESYA CAIN ([id number]) [facility] [address] [place] [address] Protein (U) [Mass/Vol] Negative Normal NEGAT FARHEEN, 10 (TRACE), 20 (TRACE) [facility] Comment on above: Order Comment: Obtai n sample from current catheter, was changed in last 48 hoursOVER is reported when the result is greater than the clinically reportable range. Performed By: #### 5 8410-2 #### OLESYA CAIN ([id number]) [facility] [address] [place] [address] RBC (U) [#/Vol] OVER (3+) Abnormal NEGATIVE [facility] Comment on above: Order Comment: Obtai n sample from current catheter, was changed in last 48 hoursOVER is reported when the result is greater than the clinically reportable range. Performed By: #### 5 8410-2 #### OLESYA CAIN ([id number]) [facility] [address] [place] [address] RBC Auto (Urine sed) [#/Area] 3-5 Normal NONE, 1-2, 3-5 [facility] Comment on above: Order Comment: Obtai n sample from current catheter, was changed in last 48 hours Performed By: #### 5 8077-9 #### OLESYA CAIN ([id number]) [facility] [address] [place] [address] Specific gravity (U) [Rel density] 1.011 Normal 1.005-1.035 [facility] Comment on above: Order Comment: Obtai n sample from current catheter, was changed in last 48 hoursOVER is reported when the result is greater than the clinically reportable range. Performed By: #### 5 8410-2 #### OLESYA CAIN ([id number]) [facility] [address] [place] [address] Urobilinogen (U) [Mass/Vol] Normal Normal Normal [facility] Comment on above: Order Comment: Obtai n sample from current catheter, was changed in last 48 hoursOVER is reported when the result is greater than the clinically reportable range. Performed By: #### 5 8410-2 #### OLESYA CAIN ([id number]) [facility] [address] [place] [address] WBC Auto (Urine sed) [#/Area] 1-5 Normal 1-5, NONE [facility] Comment on above: Order Comment: Obtai n sample from current catheter, was changed in last 48 hours Performed By: #### 5 8077-9 #### OLESYA CAIN ([id number]) [facility] [address] [place] [address] Office Visiton 09-09-2024 Follow-up visit [id number] Vashti Massey 1955 M Date Provider Department Center 09/09/2024 3848-ERINN ZUÑIGA CARD [facility] Family History Problem Relation Age of Onset No Known Problems Mother No Known Problems Father Heart attack Paternal Grandmother Family Status - Relation Status Age at Mother Father Paternal Grandmother Level of Service:02432 MI OFFICE/OUTPATIENT NEW MODERATE MDM 45 MINUTES Normal [facility] BASIC METABOLIC PANLon 06-11 Anion gap [Moles/Vol] 9 mmol/L Normal 5-[address] [facility] Comment on above: Performed By: #### C BCA, CMP #### [facility] ([id number]) [address], [address] [place] [address] Calcium [Mass/Vol] 9.2 mg/dL Normal 8.5-10.[address] [facility] Comment on above: Performed By: #### C BCA, CMP #### [facility] ([id number]) [address], [address] [place] [address] Chloride [Moles/Vol] 97 mmol/L Low 98-109 [facility] Comment on above: Performed By: #### C BCA, CMP #### [facility] ([id number]) [address], [address] [place] [address] CO2 [Moles/Vol] 29 mmol/L Normal 22-32 [facility] Comment on above: Performed By: #### C BCA, CMP #### [facility] ([id number]) [address] [address] Creatinine [Mass/Vol] 0.54 mg/dL Low 0.60-1.30 [facility] Comment on above: Result Comment: METH OD TRACEABLE TO IDMS STANDARD Performed By: #### C BCA, CMP #### [facility] ([id number]) [address] [place] [address] eGFR (CKD-EPI) NON-RACE DEPENDENT >90 Normal >59 [facility] Comment on above: Result Comment: Reported eGFR is based on the CKD-EPI 2020 equation that does not use a race coefficient. Performed By: #### C BCA, CMP #### [facility] ([id number]) [address] [address] Glucose [Mass/Vol] 158 mg/dL High 65-[address] [facility] Comment on above: Performed By: #### C BCA, CMP #### [facility] ([id number]) [address] [place] [address] Potassium [Moles/Vol] 4.2 mmol/L Normal 3.5-5.0 [facility] Comment on above: Performed By: #### C BCA, CMP #### [facility] ([id number]) [address] [place] [address] Sodium [Moles/Vol] 135 mmol/L Normal 134-[address] [facility] Comment on above: Performed By: #### C BCA, CMP #### [facility] ([id number]) [address] [place] [address] Urea nitrogen [Mass/Vol] 20 mg/dL Normal 5-27 [facility] Comment on above: Performed By: #### C BCA, CMP #### [facility] ([id number]) [address], [address] [place] [address] CBC AND AUTO DIFFon 06-11-20 24 ABSOLUTE BASOPHIL 0.1 X10E9/L Normal 0.0-0.[address] [facility] [address] [facility] Comment on above: Performed By: #### C BCA, CMP #### [facility] ([id number]) [address], [address] [place] [address] ABSOLUTE NEUTROPHIL 2.8 X10E9/L Normal 1.5-6.6 [facility] Comment on above: Performed By: #### C BCA, CMP #### [facility] ([id number]) [address] [place] [address] Basophils/100 WBC (Bld) 1.2 % Normal [facility] Comment on above: Performed By: #### C ZACHARY, CMP #### [facility] ([id number]) [address] [place] [address] Eosinophils (Bld) [#/Vol] 0.1 10*3/uL Normal 0.0-0.4 [facility] Comment on above: Performed By: #### C ZACHARY, CMP #### [facility] ([id number]) [address] [place] [address] Eosinophils/100 WBC (Bld) 2.1 % Normal [facility] Comment on above: Performed By: #### C BCA, CMP #### [facility] ([id number]) [address], [address] [place] [address] Erythrocyte distribution width (RBC) [Ratio] 15.6 % High 11.5-15.0 [facility] Comment on above: Performed By: #### C BCA, CMP #### [facility] ([id number]) [address], [address] [place] [address] Hematocrit (Bld) [Volume fraction] 34.3 % Low 39-49 [facility] Comment on above: Performed By: #### C BCA, CMP #### [facility] ([id number]) [address] [place] [address] Hemoglobin (Bld) [Mass/Vol] 11.6 g/dL Low 13.0-17.0 [facility] Comment on above: Performed By: #### C BCA, CMP #### [facility] ([id number]) [address], [address] [place] [address] Lymphocytes (Bld) [#/Vol] 1.0 10*3/uL Normal 1.0-3.5 [facility] Comment on above: Performed By: #### C BCA, CMP #### [facility] ([id number]) [address], [address] [place] [address] Lymphocytes/100 WBC (Bld) 23.1 % Normal [facility] Comment on above: Performed By: #### C BCA, CMP #### [facility] ([id number]) [address], [address] [place] [address] MCH (RBC) [Entitic mass] 27.1 pg Normal 27-34 [facility] Comment on above: Performed By: #### C BCA, CMP #### [facility] ([id number]) [address], [address] [place] [address] MCHC (RBC) [Mass/Vol] 33.9 g/dL Normal 32-36 [facility] Comment on above: Performed By: #### C BCA, CMP #### [facility] ([id number]) [address], [address] [place] [address] MCV (RBC) [Entitic vol] 80 fL Normal 80-100 [facility] Comment on above: Performed By: #### C BCA, CMP #### [facility] ([id number]) [address] [place] [address] Monocytes (Bld) [#/Vol] 0.4 10*3/uL Normal 0-0.9 [facility] Comment on above: Performed By: #### C ZACHARY, CMP #### [facility] ([id number]) [address], [address] [place] [address] Monocytes/100 WBC (Bld) 9.6 % Normal [facility] Comment on above: Performed By: #### C ZACHARY, CMP #### [facility] ([id number]) [address] [place] [address] Neutrophils/100 WBC (Bld) 64.0 % Normal [facility] Comment on above: Performed By: #### C ZACHARY, CMP #### [facility] ([id number]) [address], [address] [place] [address] Platelet mean volume (Bld) [Entitic vol] 7.0 fL Normal 7-12 [facility] Comment on above: Performed By: #### C ZACHARY, CMP #### [facility] ([id number]) [address] [place] [address] Platelets (Bld) [#/Vol] 284 10*3/uL Normal 150-450 [facility] Comment on above: Performed By: #### C ZACHARY, CMP #### [facility] ([id number]) [address] [place] [address] RBC COUNT 4.29 X10E12/L Normal 4.10-5.70 [facility] Comment on above: Performed By: #### C ZACHARY, CMP #### [facility] ([id number]) [address], [address] [place] [address] WBC (Bld) [#/Vol] 4.4 10*3/uL Normal 4.0-11.[address] [facility] Comment on above: Performed By: #### C ZACHARY, CMP #### [facility] ([id number]) [address], [address] [place] [address] Glucose Glucometer (BldC) [M ass/Vol]on 06-11-2024 Glucose [Mass/Vol] 220 mg/dL High 65-[address] [facility] Glucose [Mass/Vol] 210 mg/dL High 65-[address] [facility] Glucose [Mass/Vol] 245 mg/dL High 65-[address] [facility] Glucose [Mass/Vol] 164 mg/dL High 65-[address] [facility] BASIC METABOLIC PANLon 06-10 Anion gap [Moles/Vol] 10 mmol/L Normal 5-15 [facility] Comment on above: Performed By: #### C BCA, CMP #### [facility] ([id number]) [address], [address] [place] [address] Calcium [Mass/Vol] 9.3 mg/dL Normal 8.5-10.[address] [facility] Comment on above: Performed By: #### C BCA, CMP #### [facility] ([id number]) [address], [address] [place] [address] Chloride [Moles/Vol] 96 mmol/L Low 98-109 [facility] Comment on above: Performed By: #### C BCA, CMP #### [facility] ([id number]) [address], [address] [place] [address] CO2 [Moles/Vol] 28 mmol/L Normal 22-32 [facility] Comment on above: Performed By: #### C BCA, CMP #### [facility] ([id number]) [address], [address] [place] [address] Creatinine [Mass/Vol] 0.58 mg/dL Low 0.60-1.30 [facility] Comment on above: Result Comment: METH OD TRACEABLE TO IDMS STANDARD Performed By: #### C BCA, CMP #### [facility] ([id number]) [address] [address] [place] [address] eGFR (CKD-EPI) NON-RACE DEPENDENT >90 Normal >59 [facility] Comment on above: Result Comment: Reported eGFR is based on the CKD-EPI 2020 equation that does not use a race coefficient. Performed By: #### C BCA, CMP #### [facility] ([id number]) [address] [address] Glucose [Mass/Vol] 173 mg/dL High 65-[address] [facility] Comment on above: Performed By: #### C BCA, CMP #### [facility] ([id number]) [address] [address] Potassium [Moles/Vol] 4.1 mmol/L Normal 3.5-5.0 [facility] Comment on above: Performed By: #### C BCA, CMP #### [facility] ([id number]) [address] [address] Sodium [Moles/Vol] 134 mmol/L Normal 134-[address] [facility] Comment on above: Performed By: #### C BCA, CMP #### [facility] ([id number]) [address] [address] Urea nitrogen [Mass/Vol] 18 mg/dL Normal 5-27 [facility] Comment on above: Performed By: #### C BCA, CMP #### [facility] ([id number]) [address] [address] CBC AND AUTO DIFFon 08-15-20 24 ABSOLUTE BASOPHIL 0.0 X10E9/L Normal 0.0-0.[address] [facility] Comment on above: Performed By: #### C BCA, CMP #### [facility] ([id number]) [address] [address] ABSOLUTE NEUTROPHIL 2.6 X10E9/L Normal 1.5-6.6 [facility] Comment on above: Performed By: #### C BCA, CMP #### [facility] ([id number]) [address], [address] [place] [address] Basophils/100 WBC (Bld) 1.0 % Normal [facility] Comment on above: Performed By: #### C BCA, CMP #### [facility] ([id number]) [address], [address] [place] [address] Eosinophils (Bld) [#/Vol] 0.1 10*3/uL Normal 0.0-0.4 [facility] Comment on above: Performed By: #### C BCA, CMP #### [facility] ([id number]) [address], [address] [place] [address] Eosinophils/100 WBC (Bld) 1.9 % Normal [facility] Comment on above: Performed By: #### C BCA, CMP #### [facility] ([id number]) [address], [address] [place] [address] Erythrocyte distribution width (RBC) [Ratio] 15.8 % High 11.5-15.0 [facility] Comment on above: Performed By: #### C BCA, CMP #### [facility] ([id number]) [address], [address] [place] [address] Hematocrit (Bld) [Volume fraction] 34.3 % Low 39-49 [facility] Comment on above: Performed By: #### C BCA, CMP #### [facility] ([id number]) [address] [address] [place] [address] Hemoglobin (Bld) [Mass/Vol] 11.3 g/dL Low 13.0-17.0 [facility] Comment on above: Performed By: #### C BCA, CMP #### [facility] ([id number]) [address] [place] [address] Lymphocytes (Bld) [#/Vol] 1.1 10*3/uL Normal 1.0-3.5 [facility] Comment on above: Performed By: #### C BCA, CMP #### [facility] ([id number]) [address] [place] [address] Lymphocytes/100 WBC (Bld) 26.6 % Normal [facility] Comment on above: Performed By: #### C ZACHARY, CMP #### [facility] ([id number]) [address] [place] [address] MCH (RBC) [Entitic mass] 26.4 pg Low 27-34 [facility] Comment on above: Performed By: #### C ZACHARY, CMP #### [facility] ([id number]) [address] [place] [address] MCHC (RBC) [Mass/Vol] 32.8 g/dL Normal 32-36 [facility] Comment on above: Performed By: #### C ZACHARY, CMP #### [facility] ([id number]) [address] [place] [address] MCV (RBC) [Entitic vol] 80 fL Normal 80-100 [facility] Comment on above: Performed By: #### C ZACHARY, CMP #### [facility] ([id number]) [address] [place] [address] Monocytes (Bld) [#/Vol] 0.4 10*3/uL Normal 0-0.9 [facility] Comment on above: Performed By: #### C BCA, CMP #### [facility] ([id number]) [address] [place] [address] Monocytes/100 WBC (Bld) 8.2 % Normal [facility] Comment on above: Performed By: #### C BCA, CMP #### [facility] ([id number]) [address] [place] [address] Neutrophils/100 WBC (Bld) 62.3 % Normal [facility] Comment on above: Performed By: #### C ZACHARY, CMP #### [facility] ([id number]) [address], [address] [place] [address] Platelet mean volume (Bld) [Entitic vol] 7.0 fL Normal 7-12 [facility] Comment on above: Performed By: #### C ZACHARY, CMP #### [facility] ([id number]) [address], [facility] [address] [place] [address] Platelets (Bld) [#/Vol] 290 10*3/uL Normal 150-450 [facility] Comment on above: Performed By: #### C ZACHARY, CMP #### [facility] ([id number]) [address] [place] [address] RBC COUNT 4.26 X10E12/L Normal 4.10-5.70 [facility] Comment on above: Performed By: #### C ZACHARY, CMP #### [facility] ([id number]) [address], [facility] [address] [place] [address] WBC (Bld) [#/Vol] 4.3 10*3/uL Normal 4.0-11.[address] [facility] Comment on above: Performed By: #### Thais SHARMA, CMP #### [facility] ([id number]) [address] [place] [address] Glucose Glucometer (dC) [M ass/Vol]on 06-10-2024 Glucose [Mass/Vol] 258 mg/dL High 65-[address] [facility] Glucose [Mass/Vol] 272 mg/dL High 65-[address] [facility] Glucose [Mass/Vol] 275 mg/dL High 65-[address] [facility] Glucose [Mass/Vol] 175 mg/dL High 65-[address] [facility] Glucose [Mass/Vol] 168 mg/dL High 65-[address] [facility] Glucose [Mass/Vol] 181 mg/dL High 65-[address] [facility] BASIC METABOLIC PANLon 06-09 Anion gap [Moles/Vol] 8 mmol/L Normal 5-15 [facility] Comment on above: Performed By: #### C BCA, CMP #### [facility] ([id number]) [address] [place] [address] Calcium [Mass/Vol] 8.9 mg/dL Normal 8.5-10.[address] [facility] Comment on above: Performed By: #### C BCA, CMP #### [facility] ([id number]) [address] [place] [address] Chloride [Moles/Vol] 98 mmol/L Normal 98-109 [facility] Comment on above: Performed By: #### C BCA, CMP #### [facility] ([id number]) [address] [place] [address] CO2 [Moles/Vol] 29 mmol/L Normal 22-32 [facility] Comment on above: Performed By: #### C BCA, CMP #### [facility] ([id number]) [address] [place] [address] Creatinine [Mass/Vol] 0.51 mg/dL Low 0.60-1.30 [facility] Comment on above: Result Comment: METH OD TRACEABLE TO IDMS STANDARD Performed By: #### C BCA, CMP #### [facility] ([id number]) [address] [place] [address] eGFR (CKD-EPI) NON-RACE DEPENDENT >90 Normal >59 [facility] Comment on above: Result Comment: Reported eGFR is based on the CKD-EPI 2020 equation that does not use a race coefficient. Performed By: #### C BCA, CMP #### [facility] ([id number]) [address] [place] [address] Glucose [Mass/Vol] 174 mg/dL High 65-[address] [facility] Comment on above: Performed By: #### C BCA, CMP #### [facility] ([id number]) [address] [place] [address] Potassium [Moles/Vol] 4.2 mmol/L Normal 3.5-5.0 [facility] Comment on above: Performed By: #### C BCA, CMP #### [facility] ([id number]) [address] [place] [address] Sodium [Moles/Vol] 135 mmol/L Normal 134-[address] [facility] Comment on above: Performed By: #### C BCA, CMP #### [facility] ([id number]) [address] [place] [address] Urea nitrogen [Mass/Vol] 13 mg/dL Normal 5-27 [facility] Comment on above: Performed By: #### C BCA, CMP #### [facility] ([id number]) [address] [place] [address] CBC AND AUTO DIFFon 06-09-20 24 ABSOLUTE BASOPHIL 0.1 X10E9/L Normal 0.0-0.[address] [facility] Comment on above: Performed By: #### C BCA, CMP #### [facility] ([id number]) [address] [place] [address] ABSOLUTE NEUTROPHIL 2.4 X10E9/L Normal 1.5-6.6 [facility] Comment on above: Performed By: #### C BCA, CMP #### [facility] ([id number]) [address] [place] [address] Basophils/100 WBC (Bld) 1.4 % Normal [facility] Comment on above: Performed By: #### C BCA, CMP #### [facility] ([id number]) [address] [address] [place] [address] Eosinophils (Bld) [#/Vol] 0.1 10*3/uL Normal 0.0-0.4 [facility] Comment on above: Performed By: #### C BCA, CMP #### [facility] ([id number]) [address], [facility] [address] [place] [address] Eosinophils/100 WBC (Bld) 3.1 % Normal [facility] Comment on above: Performed By: #### C BCA, CMP #### [facility] ([id number]) [address], [facility] [address] [place] [address] Erythrocyte distribution width (RBC) [Ratio] 16.2 % High 11.5-15.0 [facility] Comment on above: Performed By: #### C BCA, CMP #### [facility] ([id number]) [address], [facility] [address] [place] [address] Hematocrit (Bld) [Volume fraction] 33.5 % Low 39-49 [facility] Comment on above: Performed By: #### C BCA, CMP #### [facility] ([id number]) [address] [address] [place] [address] Hemoglobin (Bld) [Mass/Vol] 11.3 g/dL Low 13.0-17.0 [facility] Comment on above: Performed By: #### C BCA, CMP #### [facility] ([id number]) [address] [address] [place] [address] Lymphocytes (Bld) [#/Vol] 1.2 10*3/uL Normal 1.0-3.5 [facility] Comment on above: Performed By: #### C BCA, CMP #### [facility] ([id number]) [address] [place] [address] Lymphocytes/100 WBC (Bld) 28.7 % Normal [facility] Comment on above: Performed By: #### C BCA, CMP #### [facility] ([id number]) [address] [place] [address] MCH (RBC) [Entitic mass] 27.0 pg Normal 27-34 [facility] Comment on above: Performed By: #### C BCA, CMP #### [facility] ([id number]) [address] [place] [address] MCHC (RBC) [Mass/Vol] 33.6 g/dL Normal 32-36 [facility] Comment on above: Performed By: #### C BCA, CMP #### [facility] ([id number]) [address] [place] [address] MCV (RBC) [Entitic vol] 80 fL Normal 80-100 [facility] Comment on above: Performed By: #### C BCA, CMP #### [facility] ([id number]) [address] [place] [address] Monocytes (Bld) [#/Vol] 0.3 10*3/uL Normal 0-0.9 [facility] Comment on above: Performed By: #### C BCA, CMP #### [facility] ([id number]) [address] [place] [address] Monocytes/100 WBC (Bld) 7.6 % Normal [facility] Comment on above: Performed By: #### C BCA, CMP #### [facility] ([id number]) [address] [place] [address] Neutrophils/100 WBC (Bld) 59.2 % Normal [facility] Comment on above: Performed By: #### C BCA, CMP #### [facility] ([id number]) [address] [place] [address] Platelet mean volume (Bld) [Entitic vol] 6.9 fL Low 7-12 [facility] Comment on above: Performed By: #### C BCA, CMP #### [facility] ([id number]) [address] [place] [address] Platelets (Bld) [#/Vol] 280 10*3/uL Normal 150-450 [facility] Comment on above: Performed By: #### C ZACHARY, CMP #### [facility] ([id number]) [address] [place] [address] RBC COUNT 4.17 X10E12/L Normal 4.10-5.70 [facility] Comment on above: Performed By: #### C ZACHARY, CMP #### [facility] ([id number]) [address] [place] [address] WBC (Bld) [#/Vol] 4.1 10*3/uL Normal 4.0-11.[address] [facility] Comment on above: Performed By: #### C BCA, CMP #### [facility] ([id number]) [address] [place] [address] Glucose Glucometer (BldC) [M ass/Vol]on 06-09-2024 Glucose [Mass/Vol] 215 mg/dL High 65-[address] [facility] Glucose [Mass/Vol] 217 mg/dL High 65-[address] [facility] BASIC METABOLIC PANLon 06-08 Anion gap [Moles/Vol] 9 mmol/L Normal 5-15 [facility] Comment on above: Performed By: #### C BCA, CMP #### [facility] ([id number]) [address] [place] [address] Calcium [Mass/Vol] 8.7 mg/dL Normal 8.5-10.[address] [facility] Comment on above: Performed By: #### C BCA, CMP #### [facility] ([id number]) [address] [place] [address] Chloride [Moles/Vol] 99 mmol/L Normal 98-109 [facility] Comment on above: Performed By: #### C BCA, CMP #### [facility] ([id number]) [address] [place] [address] CO2 [Moles/Vol] 27 mmol/L Normal 22-32 [facility] Comment on above: Performed By: #### C BCA, CMP #### [facility] ([id number]) [address] [place] [address] Creatinine [Mass/Vol] 0.64 mg/dL Normal 0.60-1.30 [facility] Comment on above: Result Comment: METH OD TRACEABLE TO IDMS STANDARD Performed By: #### C BCA, CMP #### [facility] ([id number]) [address] [place] [address] eGFR (CKD-EPI) NON-RACE DEPENDENT >90 Normal >59 [facility] Comment on above: Result Comment: Reported eGFR is based on the CKD-EPI 2020 equation that does not use a race coefficient. Performed By: #### C BCA, CMP #### [facility] ([id number]) [address] [place] [address] Glucose [Mass/Vol] 166 mg/dL High 65-[address] [facility] Comment on above: Performed By: #### C BCA, CMP #### [facility] ([id number]) [address] [place] [address] Potassium [Moles/Vol] 4.2 mmol/L Normal 3.5-5.0 [facility] Comment on above: Performed By: #### C BCA, CMP #### [facility] ([id number]) [address] [place] [address] Sodium [Moles/Vol] 135 mmol/L Normal 134-[address] [facility] Comment on above: Performed By: #### C BCA, CMP #### [facility] ([id number]) [address] [place] [address] Urea nitrogen [Mass/Vol] 16 mg/dL Normal 5-27 [facility] Comment on above: Performed By: #### C ZACHARY, CMP #### [facility] ([id number]) [address], [address] [place] [address] CBC AND AUTO DIFFon 06-08-20 24 ABSOLUTE BASOPHIL 0.1 X10E9/L Normal 0.0-0.[address] [facility] Comment on above: Performed By: #### C ZACHAYR, CMP #### [facility] ([id number]) [address], [address] [place] [address] ABSOLUTE NEUTROPHIL 3.8 X10E9/L Normal 1.5-6.6 [facility] Comment on above: Performed By: #### C ZACHARY, CMP #### [facility] ([id number]) [address], [address] [place] [address] Basophils/100 WBC (Bld) 1.1 % Normal [facility] Comment on above: Performed By: #### C ZACHARY, CMP #### [facility] ([id number]) [address], [address] [place] [address] Eosinophils (Bld) [#/Vol] 0.1 10*3/uL Normal 0.0-0.4 [facility] Comment on above: Performed By: #### C BCA, CMP #### [facility] ([id number]) [address], [address] [place] [address] Eosinophils/100 WBC (Bld) 1.6 % Normal [facility] Comment on above: Performed By: #### C BCA, CMP #### [facility] ([id number]) [address] [address] [place] [address] Erythrocyte distribution width (RBC) [Ratio] 15.4 % High 11.5-15.0 [facility] Comment on above: Performed By: #### C BCA, CMP #### [facility] ([id number]) [address], [address] [place] [address] Hematocrit (Bld) [Volume fraction] 32.3 % Low 39-49 [facility] Comment on above: Performed By: #### C BCA, CMP #### [facility] ([id number]) [address] [address] [place] [address] Hemoglobin (Bld) [Mass/Vol] 10.8 g/dL Low 13.0-17.0 [facility] Comment on above: Performed By: #### C BCA, CMP #### [facility] ([id number]) [address] [address] [place] [address] Lymphocytes (Bld) [#/Vol] 1.2 10*3/uL Normal 1.0-3.5 [facility] Comment on above: Performed By: #### C BCA, CMP #### [facility] ([id number]) [address], [address] [place] [address] Lymphocytes/100 WBC (Bld) 21.2 % Normal [facility] Comment on above: Performed By: #### C BCA, CMP #### [facility] ([id number]) [address] [address] [place] [address] MCH (RBC) [Entitic mass] 26.9 pg Low 27-34 [facility] Comment on above: Performed By: #### C BCA, CMP #### [facility] ([id number]) [address] [place] [address] MCHC (RBC) [Mass/Vol] 33.3 g/dL Normal 32-36 [facility] Comment on above: Performed By: #### C ZACHARY, CMP #### [facility] ([id number]) [address] [place] [address] MCV (RBC) [Entitic vol] 81 fL Normal 80-100 [facility] Comment on above: Performed By: #### C BCA, CMP #### [facility] ([id number]) [address] [place] [address] Monocytes (Bld) [#/Vol] 0.3 10*3/uL Normal 0-0.9 [facility] Comment on above: Performed By: #### C ZACHARY, CMP #### [facility] ([id number]) [address] [place] [address] Monocytes/100 WBC (Bld) 5.8 % Normal [facility] Comment on above: Performed By: #### C ZACHARY, CMP #### [facility] ([id number]) [address], [address] [place] [address] Neutrophils/100 WBC (Bld) 70.3 % Normal [facility] Comment on above: Performed By: #### C BCA, CMP #### [facility] ([id number]) [address], [address] [place] [address] Platelet mean volume (Bld) [Entitic vol] 7.1 fL Normal 7-12 [facility] Comment on above: Performed By: #### C BCA, CMP #### [facility] ([id number]) [address] [place] [address] Platelets (Bld) [#/Vol] 269 10*3/uL Normal 150-450 [facility] Comment on above: Performed By: #### C BCA, CMP #### [facility] ([id number]) [address] [place] [address] RBC COUNT 4.00 X10E12/L Low 4.10-5.70 [facility] Comment on above: Performed By: #### C BCA, CMP #### [facility] ([id number]) [address] [place] [address] WBC (Bld) [#/Vol] 5.5 10*3/uL Normal 4.0-11.[address] [facility] Comment on above: Performed By: #### C BCA, CMP #### [facility] ([id number]) [address] [place] [address] Glucose Glucometer (BldC) [M ass/Vol]on 06-08-2024 Glucose [Mass/Vol] 175 mg/dL High 65-[address] [facility] Glucose [Mass/Vol] 239 mg/dL High 65-[address] [facility] BASIC METABOLIC PANLon 06-07 Anion gap [Moles/Vol] 9 mmol/L Normal 5-15 [facility] Comment on above: Performed By: #### C ZACHARY, CMP #### [facility] ([id number]) [address] [place] [address] Calcium [Mass/Vol] 8.7 mg/dL Normal 8.5-10.[address] [facility] Comment on above: Performed By: #### C BCA, CMP #### [facility] ([id number]) [address], [address] [place] [address] Chloride [Moles/Vol] 100 mmol/L Normal 98-109 [facility] Comment on above: Performed By: #### C BCA, CMP #### [facility] ([id number]) [address] [place] [address] CO2 [Moles/Vol] 26 mmol/L Normal 22-32 [facility] Comment on above: Performed By: #### C BCA, CMP #### [facility] ([id number]) [address] [address] [place] [address] Creatinine [Mass/Vol] 0.63 mg/dL Normal 0.60-1.30 [facility] Comment on above: Result Comment: METH OD TRACEABLE TO IDMS STANDARD Performed By: #### C BCA, CMP #### [facility] ([id number]) [address] [address] eGFR (CKD-EPI) NON-RACE DEPENDENT >90 Normal >59 [facility] Comment on above: Result Comment: Reported eGFR is based on the CKD-EPI 2020 equation that does not use a race coefficient. Performed By: #### C BCA, CMP #### [facility] ([id number]) [address] [address] Glucose [Mass/Vol] 161 mg/dL High 65-[address] [facility] Comment on above: Performed By: #### C BCA, CMP #### [facility] ([id number]) [address] [address] Potassium [Moles/Vol] 4.2 mmol/L Normal 3.5-5.0 [facility] Comment on above: Performed By: #### C BCA, CMP #### [facility] ([id number]) [address] [address] Sodium [Moles/Vol] 135 mmol/L Normal 134-[address] [facility] Comment on above: Performed By: #### C BCA, CMP #### [facility] ([id number]) [address] [address] Urea nitrogen [Mass/Vol] 15 mg/dL Normal 5-27 [facility] Comment on above: Performed By: #### C BCA, CMP #### [facility] ([id number]) [address] [place] [address] CBC AND AUTO DIFFon 06-07-20 24 ABSOLUTE BASOPHIL 0.1 X10E9/L Normal 0.0-0.[address] [facility] Comment on above: Performed By: #### C BCA, CMP #### [facility] ([id number]) [address] [place] [address] ABSOLUTE NEUTROPHIL 4.2 X10E9/L Normal 1.5-6.6 [facility] Comment on above: Performed By: #### C ZACHARY, CMP #### [facility] ([id number]) [address] [place] [address] Basophils/100 WBC (Bld) 1.0 % Normal [facility] Comment on above: Performed By: #### C ZACHARY, CMP #### [facility] ([id number]) [address] [place] [address] Eosinophils (Bld) [#/Vol] 0.1 10*3/uL Normal 0.0-0.4 [facility] Comment on above: Performed By: #### C ZACHARY, CMP #### [facility] ([id number]) [address] [place] [address] Eosinophils/100 WBC (Bld) 1.5 % Normal [facility] Comment on above: Performed By: #### C ZACHARY, CMP #### [facility] ([id number]) [address] [place] [address] Erythrocyte distribution width (RBC) [Ratio] 15.7 % High 11.5-15.0 [facility] Comment on above: Performed By: #### C BCA, CMP #### [facility] ([id number]) [address] [place] [address] Hematocrit (Bld) [Volume fraction] 32.5 % Low 39-49 [facility] Comment on above: Performed By: #### C BCA, CMP #### [facility] ([id number]) [address] [place] [address] Hemoglobin (Bld) [Mass/Vol] 10.8 g/dL Low 13.0-17.0 [facility] Comment on above: Performed By: #### C BCA, CMP #### [facility] ([id number]) [address], [address] [place] [address] Lymphocytes (Bld) [#/Vol] 1.2 10*3/uL Normal 1.0-3.5 [facility] Comment on above: Performed By: #### C BCA, CMP #### [facility] ([id number]) [address] [place] [address] Lymphocytes/100 WBC (Bld) 19.6 % Normal [facility] Comment on above: Performed By: #### C BCA, CMP #### [facility] ([id number]) [address], [address] [place] [address] MCH (RBC) [Entitic mass] 26.8 pg Low 27-34 [facility] Comment on above: Performed By: #### C BCA, CMP #### [facility] ([id number]) [address] [place] [address] MCHC (RBC) [Mass/Vol] 33.3 g/dL Normal 32-36 [facility] Comment on above: Performed By: #### C BCA, CMP #### [facility] ([id number]) [address], [address] [place] [address] MCV (RBC) [Entitic vol] 81 fL Normal 80-100 [facility] Comment on above: Performed By: #### C BCA, CMP #### [facility] ([id number]) [address] [place] [address] Monocytes (Bld) [#/Vol] 0.4 10*3/uL Normal 0-0.9 [facility] Comment on above: Performed By: #### C BCA, CMP #### [facility] ([id number]) [address], [address] [place] [address] Monocytes/100 WBC (Bld) 6.8 % Normal [facility] Comment on above: Performed By: #### C BCA, CMP #### [facility] ([id number]) [address] [place] [address] Neutrophils/100 WBC (Bld) 71.1 % Normal [facility] Comment on above: Performed By: #### C BCA, CMP #### [facility] ([id number]) [address] [place] [address] Platelet mean volume (Bld) [Entitic vol] 7.0 fL Normal 7-12 [facility] Comment on above: Performed By: #### C BCA, CMP #### [facility] ([id number]) [address] [place] [address] Platelets (Bld) [#/Vol] 276 10*3/uL Normal 150-450 [facility] Comment on above: Performed By: #### C BCA, CMP #### [facility] ([id number]) [address] [place] [address] RBC COUNT 4.03 X10E12/L Low 4.10-5.70 [facility] Comment on above: Performed By: #### C BCA, CMP #### [facility] ([id number]) [address], [address] [place] [address] WBC (Bld) [#/Vol] 5.9 10*3/uL Normal 4.0-11.[address] [facility] Comment on above: Performed By: #### C BCA, CMP #### [facility] ([id number]) [address] [place] [address] Glucose Glucometer (BldC) [M ass/Vol]on 06-07-2024 Glucose [Mass/Vol] 187 mg/dL High 65-[address] [facility] Glucose [Mass/Vol] 182 mg/dL High 65-[address] [facility] Glucose [Mass/Vol] 233 mg/dL High 65-[address] [facility] Glucose [Mass/Vol] 153 mg/dL High 65-[address] [facility] BASIC METABOLIC PANLon 06-06 Anion gap [Moles/Vol] 10 mmol/L Normal 5-15 [facility] Comment on above: Performed By: #### C BCA, CMP #### [facility] ([id number]) [address] [place] [address] Calcium [Mass/Vol] 8.5 mg/dL Normal 8.5-10.[address] [facility] Comment on above: Performed By: #### C BCA, CMP #### [facility] ([id number]) [address] [place] [address] Chloride [Moles/Vol] 103 mmol/L Normal 98-109 [facility] Comment on above: Performed By: #### C BCA, CMP #### [facility] ([id number]) [address], [address] [place] [address] CO2 [Moles/Vol] 22 mmol/L Normal 22-32 [facility] Comment on above: Performed By: #### C BCA, CMP #### [facility] ([id number]) [address] [place] [address] Creatinine [Mass/Vol] 0.55 mg/dL Low 0.60-1.30 [facility] Comment on above: Result Comment: METH OD TRACEABLE TO IDMS STANDARD Performed By: #### C BCA, CMP #### [facility] ([id number]) [address] [address] [place] [address] eGFR (CKD-EPI) NON-RACE DEPENDENT >90 Normal >59 [facility] Comment on above: Result Comment: Reported eGFR is based on the CKD-EPI 2020 equation that does not use a race coefficient. Performed By: #### C BCA, CMP #### [facility] ([id number]) [address] [address] Glucose [Mass/Vol] 237 mg/dL High 65-[address] [facility] Comment on above: Performed By: #### C BCA, CMP #### [facility] ([id number]) [address] [address] Potassium [Moles/Vol] 3.8 mmol/L Normal 3.5-5.0 [facility] Comment on above: Performed By: #### C BCA, CMP #### [facility] ([id number]) [address] [address] Sodium [Moles/Vol] 135 mmol/L Normal 134-[address] [facility] Comment on above: Performed By: #### C BCA, CMP #### [facility] ([id number]) [address] [address] Urea nitrogen [Mass/Vol] 12 mg/dL Normal 5-27 [facility] Comment on above: Performed By: #### C BCA, CMP #### [facility] ([id number]) [address] [address] CBC AND AUTO DIFFon 06-06-20 24 ABSOLUTE BASOPHIL 0.1 X10E9/L Normal 0.0-0.[address] [facility] Comment on above: Performed By: #### C BCA, CMP #### [facility] ([id number]) [address] [address] ABSOLUTE NEUTROPHIL 4.6 X10E9/L Normal 1.5-6.6 [facility] Comment on above: Performed By: #### C BCA, CMP #### [facility] ([id number]) [address] [place] [address] Basophils/100 WBC (Bld) 1.0 % Normal [facility] Comment on above: Performed By: #### C BCA, CMP #### [facility] ([id number]) [address] [place] [address] Eosinophils (Bld) [#/Vol] 0.1 10*3/uL Normal 0.0-0.4 [facility] Comment on above: Performed By: #### C BCA, CMP #### [facility] ([id number]) [address] [address] [place] [address] Eosinophils/100 WBC (Bld) 1.8 % Normal [facility] Comment on above: Performed By: #### C BCA, CMP #### [facility] ([id number]) [address] [address] [place] [address] Erythrocyte distribution width (RBC) [Ratio] 15.7 % High 11.5-15.0 [facility] Comment on above: Performed By: #### C BCA, CMP #### [facility] ([id number]) [address] [address] [place] [address] Hematocrit (Bld) [Volume fraction] 33.0 % Low 39-49 [facility] Comment on above: Performed By: #### C BCA, CMP #### [facility] ([id number]) [address] [place] [address] Hemoglobin (Bld) [Mass/Vol] 11.1 g/dL Low 13.0-17.0 [facility] Comment on above: Performed By: #### C BCA, CMP #### [facility] ([id number]) [address] [place] [address] Lymphocytes (Bld) [#/Vol] 1.1 10*3/uL Normal 1.0-3.5 [facility] Comment on above: Performed By: #### C ZACHARY, CMP #### [facility] ([id number]) [address] [place] [address] Lymphocytes/100 WBC (Bld) 17.4 % Normal [facility] Comment on above: Performed By: #### C BCA, CMP #### [facility] ([id number]) [address] [place] [address] MCH (RBC) [Entitic mass] 27.5 pg Normal 27-34 [facility] Comment on above: Performed By: #### C ZACHARY, CMP #### [facility] ([id number]) [address] [place] [address] MCHC (RBC) [Mass/Vol] 33.8 g/dL Normal 32-36 [facility] Comment on above: Performed By: #### C ZACHARY, CMP #### [facility] ([id number]) [address] [place] [address] MCV (RBC) [Entitic vol] 82 fL Normal 80-100 [facility] Comment on above: Performed By: #### C ZACHARY, CMP #### [facility] ([id number]) [address] [place] [address] Monocytes (Bld) [#/Vol] 0.4 10*3/uL Normal 0-0.9 [facility] Comment on above: Performed By: #### C BCA, CMP #### [facility] ([id number]) [address] [place] [address] Monocytes/100 WBC (Bld) 5.8 % Normal [facility] Comment on above: Performed By: #### C BCA, CMP #### [facility] ([id number]) [address] [place] [address] Neutrophils/100 WBC (Bld) 74.0 % Normal [facility] Comment on above: Performed By: #### C BCA, CMP #### [facility] ([id number]) [address] [address] [place] [address] Platelet mean volume (Bld) [Entitic vol] 6.9 fL Low 7-12 [facility] Comment on above: Performed By: #### C ZACHARY, CMP #### [facility] ([id number]) [address] [place] [address] Platelets (Bld) [#/Vol] 272 10*3/uL Normal 150-450 [facility] Comment on above: Performed By: #### C ZACHARY, CMP #### [facility] ([id number]) [address] [place] [address] RBC COUNT 4.05 X10E12/L Low 4.10-5.70 [facility] Comment on above: Performed By: #### C ZACHARY, CMP #### [facility] ([id number]) [address] [place] [address] WBC (Bld) [#/Vol] 6.2 10*3/uL Normal 4.0-11.[address] [facility] Comment on above: Performed By: #### C BCA, CMP #### [facility] ([id number]) [address] [place] [address] CT BRAIN WO CONTon CT BRAIN WO [...] Beatty MD on 06/06/2024 5:57 AM Normal [facility] Glucose Glucometer (BldC) [M ass/Vol]on 06-06-2024 Glucose [Mass/Vol] 189 mg/dL High 65-[address] [facility] Glucose [Mass/Vol] 140 mg/dL High 65-[address] [facility] Glucose [Mass/Vol] 129 mg/dL High 65-[address] [facility] Glucose [Mass/Vol] 231 mg/dL High 65-[address] [facility] AMYLASEon 06-05-2024 Amylase [Catalytic activity/Vol] 30 U/L Normal 28-100 [facility] Comment on above: Performed By: #### C BCA, 53215-4, PINR, 24003-2, 1798-8, CMP, 3040-3, 5643-2 ####[facility] ([id number])[address] [place] [address] CBC AND AUTO DIFFon 06-05-20 24 ABSOLUTE BASOPHIL 0.1 X10E9/L Normal 0.0-0.[address] [facility] Comment on above: Performed By: #### C BCA, 02851-6, PINR, 47547-3, 1798-8, CMP, 3040-3, 5643-2 ####[facility] ([id number])[address], [place] [address] ABSOLUTE NEUTROPHIL 4.6 X10E9/L Normal 1.5-6.6 [facility] Comment on above: Performed By: #### C BCA, 57742-1, PINR, 10055-8, 1798-8, CMP, 3040-3, 5643-2 ####[facility] ([id number])[address], [place] [address] Basophils/100 WBC (Bld) 0.9 % Normal [facility] Comment on above: Performed By: #### C BCA, 25197-5, PINR, 66395-9, 1798-8, CMP, 3040-3, 5643-2 ####[facility] ([id number])[address] [address], [place] [address] Eosinophils (Bld) [#/Vol] 0.1 10*3/uL Normal 0.0-0.4 [facility] Comment on above: Performed By: #### C BCA, 58783-1, PINR, 63289-0, 1797-8, CMP, 3040-3, 5643-2 ####[facility] ([id number])[address] [address], [place] [address] Eosinophils/100 WBC (Bld) 2.0 % Normal [facility] Comment on above: Performed By: #### C BCA, 34720-1, PINR, 97230-5, 1797-8, CMP, 3040-3, 5643-2 ####[facility] ([id number])[address] [address] [place] [address] Erythrocyte distribution width (RBC) [Ratio] 15.8 % High 11.5-15.0 [facility] Comment on above: Performed By: #### C BCA, 18519-5, PINR, 71203-5, 1798-8, CMP, 3040-3, 5643-2 ####[facility] ([id number])[address] [address], [place] [address] Hematocrit (Bld) [Volume fraction] 34.5 % Low 39-49 [facility] Comment on above: Performed By: #### C BCA, 08928-2, PINR, 75270-2, 1798-8, CMP, 3040-3, 5643-2 ####[facility] ([id number])[address] [address] Hemoglobin (Bld) [Mass/Vol] 12.0 g/dL Low 13.0-17.0 [facility] Comment on above: Performed By: #### C BCA, 50692-2, PINR, 06081-5, 1798-8, CMP, 3040-3, 5643-2 ####[facility] ([id number])[address] [address] [place] [address] Lymphocytes (Bld) [#/Vol] 1.2 10*3/uL Normal 1.0-3.5 [facility] Comment on above: Performed By: #### C BCA, 58286-0, PINR, 55712-3, 1798-8, CMP, 3040-3, 5643-2 ####[facility] ([id number])[address] [address] [place] [address] Lymphocytes/100 WBC (Bld) 19.6 % Normal [facility] Comment on above: Performed By: #### C BCA, 91391-2, PINR, 18521-1, 1798-8, CMP, 3040-3, 5643-2 ####[facility] ([id number])[address] [place] [address] MCH (RBC) [Entitic mass] 27.7 pg Normal 27-34 [facility] Comment on above: Performed By: #### C BCA, 29468-6, PINR, 18394-6, 1798-8, CMP, 3040-3, 5643-2 ####[facility] ([id number])[address] [place] [address] MCHC (RBC) [Mass/Vol] 34.9 g/dL Normal 32-36 [facility] Comment on above: Performed By: #### C BCA, 97930-1, PINR, 90034-4, 1798-8, CMP, 3040-3, 5643-2 ####[facility] ([id number])[address] [place] [address] MCV (RBC) [Entitic vol] 79 fL Low 80-100 [facility] Comment on above: Performed By: #### C BCA, 67930-9, PINR, 70651-1, 1798-8, CMP, 3040-3, 5643-2 ####[facility] ([id number])[address] [address] [place] [address] 65714 Monocytes (Bld) [#/Vol] 0.4 10*3/uL Normal 0-0.9 [facility] Comment on above: Performed By: #### C BCA, 87918-8, PINR, 39918-6, 1798-8, CMP, 3040-3, 5643-2 ####[facility] ([id number])[address] [address] [place] [address] 32512 Monocytes/100 WBC (Bld) 5.6 % Normal [facility] Comment on above: Performed By: #### C BCA, 47430-3, PINR, 05399-4, 1798-8, CMP, 3040-3, 5643-2 ####[facility] ([id number])[address] [address] [place] [address] 34304 Neutrophils/100 WBC (Bld) 71.9 % Normal [facility] Comment on above: Performed By: #### C BCA, 97201-9, PINR, 06176-6, 1798-8, CMP, 3040-3, 5643-2 ####[facility] ([id number])[address], [address] [place] [address]354 Platelet mean volume (Bld) [Entitic vol] 6.8 fL Low 7-12 [facility] Comment on above: Performed By: #### C BCA, 82217-8, PINR, 94557-7, 1798-8, CMP, 3040-3, 5643-2 ####[facility] ([id number])[address], [address] [place] [address] 84157 Platelets (Bld) [#/Vol] 299 10*3/uL Normal 150-450 [facility] Comment on above: Performed By: #### C BCA, 34780-1, PINR, 90301-1, 1798-8, CMP, 3040-3, 5643-2 ####[facility] ([id number])[address], [address] [place] [address] 52368 RBC COUNT 4.35 X10E12/L Normal 4.10-5.70 [facility] Comment on above: Performed By: #### C BCA, 47267-0, PINR, 66308-3, 1798-8, CMP, 3040-3, 5643-2 ####[facility] ([id number])[address], [address] [place] [address] 84828 WBC (Bld) [#/Vol] 6.4 10*3/uL Normal 4.0-11.[address] [facility] Comment on above: Performed By: #### C BCA, 51113-0, PINR, 47500-7, 1798-8, CMP, 3040-3, 5643-2 ####[facility] ([id number])[address], [address] [place] [address]454 COMPREHENSIVE METABOLIC PANE [place] 06-05-2024 Albumin [Mass/Vol] 3.9 g/dL Normal 3.2-5.[address] [facility] Comment on above: Performed By: #### C BCA, CMP #### [facility] ([id number]) [address], [address] [place] [address] ALP [Catalytic activity/Vol] 94 U/L Normal 39-130 [facility] Comment on above: Performed By: #### C BCA, CMP #### [facility] ([id number]) [address], [address] [place] [address] ALT [Catalytic activity/Vol] 17 U/L Normal 0-40 [facility] Comment on above: Performed By: #### C BCA, CMP #### [facility] ([id number]) [address], [address] [place] [address] Anion gap [Moles/Vol] 11 mmol/L Normal 5-15 [facility] Comment on above: Performed By: #### C BCA, CMP #### [facility] ([id number]) [address], [address] [place] [address] AST [Catalytic activity/Vol] 13 U/L Normal 0-41 [facility] Comment on above: Performed By: #### C BCA, CMP #### [facility] ([id number]) [address], [address] [place] [address] Bilirubin [Mass/Vol] 0.5 mg/dL Normal 0.3-1.2 [facility] Comment on above: Performed By: #### C BCA, CMP #### [facility] ([id number]) [address], [address] [place] [address] Calcium [Mass/Vol] 8.8 mg/dL Normal 8.5-10.[address] [facility] Comment on above: Performed By: #### C BCA, CMP #### [facility] ([id number]) [address], [address] [place] [address] Chloride [Moles/Vol] 101 mmol/L Normal 98-109 [facility] Comment on above: Performed By: #### C BCA, CMP #### [facility] ([id number]) [address] [address] [place] [address] CO2 [Moles/Vol] 25 mmol/L Normal 22-32 [facility] Comment on above: Performed By: #### C BCA, CMP #### [facility] ([id number]) [address], [facility] [address] [place] [address] Creatinine [Mass/Vol] 0.54 mg/dL Low 0.60-1.30 [facility] Comment on above: Result Comment: METH OD TRACEABLE TO IDMS STANDARD Performed By: #### C BCA, CMP #### [facility] ([id number]) [address] [address] eGFR (CKD-EPI) NON-RACE DEPENDENT >90 Normal >59 [facility] Comment on above: Result Comment: Reported eGFR is based on the CKD-EPI 2020 equation that does not use a race coefficient. Performed By: #### C BCA, CMP #### [facility] ([id number]) [address] [address] [place] [address] Glucose [Mass/Vol] 146 mg/dL High 65-[address] [facility] Comment on above: Performed By: #### C BCA, CMP #### [facility] ([id number]) [address] [address] [place] [address] Potassium [Moles/Vol] 3.9 mmol/L Normal 3.5-5.0 [facility] Comment on above: Performed By: #### C BCA, CMP #### [facility] ([id number]) [address] [address] Protein [Mass/Vol] 6.3 g/dL Normal 6.0-8.[address] [facility] Comment on above: Performed By: #### C BCA, CMP #### [facility] ([id number]) [address] [place] [address] Sodium [Moles/Vol] 137 mmol/L Normal 134-[address] [facility] Comment on above: Performed By: #### C BCA, CMP #### [facility] ([id number]) [address] [place] [address] Urea nitrogen [Mass/Vol] 13 mg/dL Normal 5-27 [facility] Comment on above: Performed By: #### C BCA, CMP #### [facility] ([id number]) [address], [address] [place] [address] DRUG SCREEN, URINEon 024 AMPHETAMINE/METHAMP Negative Normal NEG [facility] Comment on above: Result Comment: AMPH /METH screening cut off = 1000 ng/mL Performed By: #### C BCA, CMP #### [facility] ([id number]) [address], [address] [place] [address] BARBITURATES Negative Normal NEG [facility] Comment on above: Result Comment: Elsie iturates screening cut off value = 200 ng/mL Performed By: #### C BCA, CMP #### [facility] ([id number]) [address], [address] [place] [address] BENZODIAZEPINES Negative Normal NEG [facility] Comment on above: Result Comment: James odiazepines screening cut off value = 200 ng/mL Performed By: #### C BCA, CMP #### [facility] ([id number]) [address] [place] [address] CANNABINOIDS Negative Normal NEG [facility] Comment on above: Result Comment: Shawn abinoids/THC screening cut off value = 50 ng/mL Performed By: #### C BCA, CMP #### [facility] ([id number]) [address], [address] [place] [address] COCAINE METABOLITE Negative Normal NEG [facility] Comment on above: Result Comment: Coca ine screening cut off value = 300 ng/mL Performed By: #### C BCA, CMP #### [facility] ([id number]) [address], [address] [place] [address] ECSTASY Negative Normal NEG [facility] Comment on above: Result Comment: Ecst asy screening cut off value = 500 ng/mL This report is intended for use in clinical monitoring or management of patients. Performed By: #### C BCA, CMP #### [facility] ([id number]) [address] [place] [address] METHADONE Negative Normal [facility] Comment on above: Result Comment: Meth adone screening cut off value = 300 ng/mL. Performed By: #### C BCA, CMP #### [facility] ([id number]) [address], [address] [place] [address] OPIATES Negative Normal NEG [facility] Comment on above: Result Comment: Opia yanira screening cut off value = 300 ng/mL NOTE: This test is used for the detection of codeine, hydrocodone (>1000 ng/mL), morphine and hydromorphone (>900 ng/mL) in urine. Performed By: #### C BCA, CMP #### [facility] ([id number]) [address], [address] [place] [address] OXYCODONE Negative Normal [facility] Comment on above: Result Comment: Oxyc odone screening cut off value = 300 ng/mL NOTE: This test is used for the detection of oxycodone and oxymorphone in urine. Performed By: #### C BCA, CMP #### [facility] ([id number]) [address], [address] [place] [address] PHENCYCLIDINE Negative Normal [facility] Comment on above: Result Comment: Phen cyclidine screening cut off value = 25 ng/mL Performed By: #### C BCA, CMP #### [facility] ([id number]) [address], [address] [place] [address] ETHANOLon 06-05-2024 Ethanol [Mass/Vol] mg/dL Normal 0.00-0.[address] [facility] Comment on above: Result Comment: This report is intended for use in clinical monitoring or management of patients. Performed By: #### Thais SHARMA, CMP #### [facility] ([id number]) [address], [address] [place] [address] Fibrinogen Coagulation.deriv ed (PPP) [Mass/Vol]on 06-05-2024 FIBRINOGEN 459 mg/dL Normal 190-480 [facility] Comment on above: Performed By: #### C ZACHARY, 47742-0, PINR, 22862-9, 1797-8, CMP, 3040-3, 5643-2 ####[facility] ([id number])[address] [address] [place] [address] Glucose Glucometer (BldC) [M ass/Vol]on 06-05-2024 Glucose [Mass/Vol] 154 mg/dL High 65-[address] [facility] LIPASEon 06-05-2024 Lipase [Catalytic activity/Vol] 35 U/L Normal 11-82 [facility] Comment on above: Performed By: #### Thais SHARMA, CMP #### [facility] ([id number]) [address] [address] PROTIME AND INRon 06-05-2024 INR Coag (PPP) [Relative time] 1.1 {INR} Normal 0.8-1.1 [facility] Comment on above: Performed By: #### C ZACHARY, 69055-8, PINR, 76263-5, 8-8, CMP, 3040-3, 5643-2 ####[facility] ([id number])[address], [address] [address] PT Coag (PPP) [Time] 12.9 s Normal 9.8-13.2 [facility] Comment on above: Performed By: #### Thais SHARMA, 53784-7, PINR, 32513-0, 1798-8, CMP, 3040-3, 5643-2 ####[facility] ([id number])[address], [address], [place] [address] URINALYSISon 06-05-2024 Bilirubin Ql (U) Negative Normal NEG [facility] Comment on above: Performed By: #### C BCA, CMP #### [facility] ([id number]) [address], [address] [place] [address] BLOOD/HGB MODERATE Abnormal NEG [facility] Comment on above: Performed By: #### C BCA, CMP #### [facility] ([id number]) [address], [address] [place] [address] Color (U) YELLOW Normal YELLOW [facility] Comment on above: Performed By: #### C BCA, CMP #### [facility] ([id number]) [address], [address] [place] [address] Glucose Ql (U) Negative Normal NEG [facility] Comment on above: Performed By: #### C BCA, CMP #### [facility] ([id number]) [address], [address] [place] [address] Ketones Ql (U) Negative Normal NEG [facility] Comment on above: Performed By: #### C BCA, CMP #### [facility] ([id number]) [address], [address] [place] [address] Leukocyte esterase Test strip Ql (U) MODERATE Abnormal NEG [facility] Comment on above: Performed By: #### C BCA, CMP #### [facility] ([id number]) [address] [place] [address] MUCOUS PRESENT Abnormal NONE [facility] Comment on above: Performed By: #### C BCA, CMP #### [facility] ([id number]) [address], [address] [place] [address] Nitrite Ql (U) Negative Normal NEG [facility] Comment on above: Performed By: #### C BCA, CMP #### [facility] ([id number]) [address] [place] [address] pH (U) 6.5 [pH] Normal 5.0-8.5 [facility] Comment on above: Performed By: #### C BCA, CMP #### [facility] ([id number]) [address] [address] [place] [address] Protein Ql (U) 30 mg/dL Abnormal NEG [facility] Comment on above: Performed By: #### C BCA, CMP #### [facility] ([id number]) [address] [address] [place] [address] R.B.CELLS 35 /hpf High 0-5 [facility] Comment on above: Performed By: #### C BCA, CMP #### [facility] ([id number]) [address] [place] [address] Specific gravity (U) [Rel density] 1.020 Normal 1.003-1.035 [facility] Comment on above: Performed By: #### C BCA, CMP #### [facility] ([id number]) [address] [address] [place] [address] TURBIDITY CLEAR Normal CLEAR [facility] Comment on above: Performed By: #### C BCA, CMP #### [facility] ([id number]) [address] [address] [place] [address] Urinalysis dipstick W Reflex Microscopic panel (U) URINE RECEIVED WITHOUT PRESERVATIVE-DELAYS IN TRANSPORT MAY AFFECT RESULTS.INTERPRET WITH CAUTION AND CLINICAL CORRELATION IS RECOMMENDED. Normal [facility] Comment on above: Performed By: #### C BCA, CMP #### [facility] ([id number]) [address], [address] [place] [address] Urobilinogen Qn (U) 3 {Marley'U}/dL High <1.1 [facility] Comment on above: Performed By: #### C BCA, CMP #### [facility] ([id number]) [address], [address] [place] [address] W.B.CELLS 37 /hpf High 0-5 [facility] Comment on above: Performed By: #### C BCA, CMP #### [facility] ([id number]) [address] [place] [address] XR CHEST 1 VWon 06-05-2024 XR CHEST [...] Espino MD on 06/05/2024 10:48 PM Normal [facility] aPTT Coag (PPP) [Time]on aPTT Coag (Bld) [Time] 32 s Normal 26-37 Pr [facility] Comment on above: Performed By: #### C BCA, 48378-6, PINR, 08971-1, 1798-8, CMP, 3040-3, 5643-2 ####[facility] ([id number])[address], [place] [address] BASIC METABOLIC PANLon 06-01 Anion gap [Moles/Vol] 10 mmol/L Normal 5-15 [facility] Comment on above: Performed By: #### P INR, 93803-2, 26127-8, CBCA, 69571-1, CMP, 4548-4, 6873-4 #### [facility] ([id number]) [address] [place] [address] #### HA1C #### [facility] ([id number]) [address], [address] [place] [address] Calcium [Mass/Vol] 8.7 mg/dL Normal 8.5-10.5 [facility] Comment on above: Performed By: #### P INR, 29982-2, 55633-4, CBCA, 97183-4, CMP, 4548-4, 6873-4 #### [facility] ([id number]) [address] [place] [address] #### HA1C #### [facility] ([id number]) [address] [place] [address] Chloride [Moles/Vol] 99 mmol/L Normal 98-109 [facility] Comment on above: Performed By: #### P INR, 90664-8, 49509-4, CBCA, 68631-0, CMP, 4548-4, 6873-4 #### [facility] ([id number]) [address] [place] [address] #### HA1C #### [facility] ([id number]) [address], [address] [place] [address] CO2 [Moles/Vol] 23 mmol/L Normal 22-32 [facility] Comment on above: Performed By: #### P INR, 72960-2, 71549-3, CBCA, 05487-1, CMP, 4548-4, 6873-4 #### [facility] ([id number]) [address] [place] [address] #### HA1C #### [facility] ([id number]) [address] [place] [address] Creatinine [Mass/Vol] 0.59 mg/dL Low 0.70-1.20 [facility] Comment on above: Result Comment: METH OD TRACEABLE TO IDMS STANDARD Performed By: #### P INR, 01369-8, 19507-4, CBCA, 45727-0, CMP, 4548-4, 6873-4 #### [facility] ([id number]) [address] [place] [address] #### HA1C #### [facility] ([id number]) [address] [facility] [place] [address] eGFR (CKD-EPI) NON-RACE DEPENDENT >90 Normal >59 [facility] Comment on above: Result Comment: Reported eGFR is based on the CKD-EPI 2020 equation that does not use a race coefficient. Performed By: #### P INR, 61076-8, 42330-4, CBCA, 04303-6, CMP, 4548-4, 6873-4 #### [facility] ([id number]) [address] [place] [address] #### HA1C #### [facility] ([id number]) [address] [facility] [place] [address] Glucose [Mass/Vol] 163 mg/dL High 65-99 [facility] Comment on above: Performed By: #### P INR, 76472-1, 07640-0, CBCA, 76495-5, CMP, 4548-4, 6873-4 #### [facility] ([id number]) [address] [place] [address] #### HA1C #### [facility] ([id number]) [address] [facility], [address] [place] [address] Potassium [Moles/Vol] 3.9 mmol/L Normal 3.5-5.0 [facility] Comment on above: Performed By: #### P INR, 84885-6, 95146-3, CBCA, 86489-7, CMP, 4548-4, 6873-4 #### [facility] ([id number]) [address] [place] [address] #### HA1C #### [facility] ([id number]) [address] [place] [address] Sodium [Moles/Vol] 132 mmol/L Low 134-146 [facility] Comment on above: Performed By: #### P INR, 90561-0, 28405-3, CBCA, 56586-3, CMP, 4548-4, 6873-4 #### [facility] ([id number]) [address] [place] [address] #### HA1C #### [facility] ([id number]) [address] [place] [address] Urea nitrogen [Mass/Vol] 15 mg/dL Normal 5-27 [facility] Comment on above: Performed By: #### P INR, 22695-0, 19536-4, CBCA, 25616-4, CMP, 4548-4, 6873-4 #### [facility] ([id number]) [address] [place] [address] #### HA1C #### [facility] ([id number]) [address] [place] [address] CBC AND AUTO DIFFon 06-01-20 24 ABSOLUTE BASOPHIL 0.0 X10E9/L Normal 0.0-0.2 [facility] Comment on above: Performed By: #### P INR, 62138-4, 82330-5, CBCA, 72369-4, CMP, 4548-4, 6873-4 #### [facility] ([id number]) [address] [place] [address] #### HA1C #### [facility] ([id number]) [address] [place] [address] ABSOLUTE NEUTROPHIL 2.5 X10E9/L Normal 1.5-6.6 [facility] Comment on above: Performed By: #### P INR, 40185-9, 94144-8, CBCA, 76747-8, CMP, 4548-4, 6873-4 #### [facility] ([id number]) [address] [place] [address] #### HA1C #### [facility] ([id number]) [address] [place] [address] Basophils/100 WBC (Bld) 1.0 % Normal [facility] Comment on above: Performed By: #### P INR, 71210-3, 24309-6, CBCA, 84571-3, CMP, 4548-4, 6873-4 #### [facility] ([id number]) [address] [place] [address] #### HA1C #### [facility] ([id number]) [address] [place] [address] Eosinophils (Bld) [#/Vol] 0.3 10*3/uL Normal 0.0-0.4 [facility] Comment on above: Performed By: #### P INR, 27316-7, 92362-4, CBCA, 66122-9, CMP, 4548-4, 6873-4 #### [facility] ([id number]) [address] [place] [address] #### HA1C #### [facility] ([id number]) [address] [place] [address] Eosinophils/100 WBC (Bld) 6.5 % Normal [facility] Comment on above: Performed By: #### P INR, 99177-9, 85669-9, CBCA, 46276-6, CMP, 4548-4, 6873-4 #### [facility] ([id number]) [address] [place] [address] #### HA1C #### [facility] ([id number]) [address] [place] [address] Erythrocyte distribution width (RBC) [Ratio] 15.7 % High 11.5-15.0 [facility] Comment on above: Performed By: #### P INR, 13679-3, 62363-4, CBCA, 59073-7, CMP, 4548-4, 6873-4 #### [facility] ([id number]) [address] [place] [address] #### HA1C #### [facility] ([id number]) [address] [address] [place] [address] Hematocrit (Bld) [Volume fraction] 34.2 % Low 39-49 [facility] Comment on above: Performed By: #### P INR, 99160-2, 18122-0, CBCA, 18217-2, CMP, 4548-4, 6873-4 #### [facility] ([id number]) [address] [place] [address] #### HA1C #### [facility] ([id number]) [address] [place] [address] Hemoglobin (Bld) [Mass/Vol] 11.6 g/dL Low 13.0-17.0 [facility] Comment on above: Performed By: #### P INR, 52357-0, 13866-7, CBCA, 08356-4, CMP, 4548-4, 6873-4 #### [facility] ([id number]) [address] [place] [address] #### HA1C #### [facility] ([id number]) [address] [place] [address] Lymphocytes (Bld) [#/Vol] 1.6 10*3/uL Normal 1.0-3.5 [facility] Comment on above: Performed By: #### P INR, 48735-3, 45021-6, CBCA, 10525-7, CMP, 4548-4, 6873-4 #### [facility] ([id number]) [address] [place] [address] #### HA1C #### [facility] ([id number]) [address] [place] [address] Lymphocytes/100 WBC (Bld) 33.6 % Normal [facility] Comment on above: Performed By: #### P INR, 62415-3, 56687-5, CBCA, 81934-8, CMP, 4548-4, 6873-4 #### [facility] ([id number]) [address] [place] [address] #### HA1C #### [facility] ([id number]) [address] [place] [address] MCH (RBC) [Entitic mass] 27.2 pg Normal 27-34 [facility] Comment on above: Performed By: #### P INR, 42572-5, 68697-6, CBCA, 83707-4, CMP, 4548-4, 6873-4 #### [facility] ([id number]) [address] [place] [address]77[address] #### HA1C #### [facility] ([id number]) [address] [place] [address] MCHC (RBC) [Mass/Vol] 33.9 g/dL Normal 32-36 [facility] Comment on above: Performed By: #### P INR, 05369-0, 63264-4, CBCA, 26445-2, CMP, 4548-4, 6873-4 #### [facility] ([id number]) [address] [place] [address]47 #### HA1C #### [facility] ([id number]) [address] [place] [address] MCV (RBC) [Entitic vol] 80 fL Normal 80-100 [facility] Comment on above: Performed By: #### P INR, 63978-4, 11459-6, CBCA, 42603-7, CMP, 4548-4, 6873-4 #### [facility] ([id number]) [address] [place] [address] #### HA1C #### [facility] ([id number]) [address] [facility], [address] [place] [address] Monocytes (Bld) [#/Vol] 0.4 10*3/uL Normal 0-0.9 [facility] Comment on above: Performed By: #### P INR, 80775-0, 00746-2, CBCA, 25836-4, CMP, 4548-4, 6873-4 #### [facility] ([id number]) [address] [place] [address] #### HA1C #### [facility] ([id number]) [address], [address] [place] [address] Monocytes/100 WBC (Bld) 7.6 % Normal [facility] Comment on above: Performed By: #### P INR, 01968-0, 09357-7, CBCA, 62637-1, CMP, 4548-4, 6873-4 #### [facility] ([id number]) [address] [place] [address] #### HA1C #### [facility] ([id number]) [address], [address] [place] [address] Neutrophils/100 WBC (Bld) 51.3 % Normal [facility] Comment on above: Performed By: #### P INR, 96173-7, 04363-6, CBCA, 98395-6, CMP, 4548-4, 6873-4 #### [facility] ([id number]) [address] [place] [address] #### HA1C #### [facility] ([id number]) [address], [address] [place] [address] Platelet mean volume (Bld) [Entitic vol] 6.8 fL Low 7-12 [facility] Comment on above: Performed By: #### P INR, 61158-3, 56162-0, CBCA, 62811-2, CMP, 4548-4, 6873-4 #### [facility] ([id number]) [address] [place] [address] #### HA1C #### [facility] ([id number]) [address] [facility], [address] [place] [address] Platelets (Bld) [#/Vol] 300 10*3/uL Normal 150-450 [facility] Comment on above: Performed By: #### P INR, 08905-6, 33048-7, CBCA, 77259-5, CMP, 4548-4, 6873-4 #### [facility] ([id number]) [address] [place] [address] #### HA1C #### [facility] ([id number]) [address] [facility], [address] [place] [address] RBC COUNT 4.25 X10E12/L Normal 4.10-5.70 [facility] Comment on above: Performed By: #### P INR, 98682-6, 89785-5, CBCA, 80995-3, CMP, 4548-4, 6873-4 #### [facility] ([id number]) [address] [place] [address] 33789 #### HA1C #### [facility] ([id number]) [address], [address] [place] [address] WBC (Bld) [#/Vol] 4.9 10*3/uL Normal 4.0-11.0 [facility] Comment on above: Performed By: #### P INR, 30873-5, 37047-0, CBCA, 45621-5, CMP, 4548-4, 6873-4 #### [facility] ([id number]) [address] [place] [address] 16764 #### HA1C #### [facility] ([id number]) [address], [address] [place] [address] Glucose Glucometer (BldC) [M ass/Vol]on 06-01-2024 Glucose [Mass/Vol] 143 mg/dL High 65-99 [facility] BASIC METABOLIC PANLon 05-31 Anion gap [Moles/Vol] 8 mmol/L Normal 5-15 [facility] Comment on above: Performed By: #### P INR, 17402-0, 18438-1, CBCA, 84667-8, CMP, 4548-4, 6873-4 #### [facility] ([id number]) [address] [place] [address] 44351 #### HA1C #### [facility] ([id number]) [address], [address] [place] [address] Calcium [Mass/Vol] 8.5 mg/dL Normal 8.5-10.5 [facility] Comment on above: Performed By: #### P INR, 74611-5, 37939-8, CBCA, 00004-3, CMP, 4548-4, 6873-4 #### [facility] ([id number]) [address] [place] [address] [place] [address] #### HA1C #### [facility] ([id number]) [address], [address] [place] [address] Chloride [Moles/Vol] 100 mmol/L Normal 98-109 [facility] Comment on above: Performed By: #### P INR, 74174-0, 01565-8, CBCA, 71644-9, CMP, 4548-4, 6873-4 #### [facility] ([id number]) [address] [place] [address] 12830 #### HA1C #### [facility] ([id number]) [address] [facility], [address] [place] [address] CO2 [Moles/Vol] 24 mmol/L Normal 22-32 [facility] Comment on above: Performed By: #### P INR, 79197-5, 47221-8, CBCA, 24466-7, CMP, 4548-4, 6873-4 #### [facility] ([id number]) [address] [place] [address] 99107 #### HA1C #### [facility] ([id number]) [address] [facility], [address] [place] [address] Creatinine [Mass/Vol] 0.69 mg/dL Low 0.70-1.20 [facility] Comment on above: Result Comment: METH OD TRACEABLE TO IDMS STANDARD Performed By: #### P INR, 31608-8, 27749-3, CBCA, 71460-1, CMP, 4548-4, 6873-4 #### [facility] ([id number]) [address] [place] [address] 25104 #### HA1C #### [facility] ([id number]) [address] [facility], [address] [place] [address] eGFR (CKD-EPI) NON-RACE DEPENDENT >90 Normal >59 [facility] Comment on above: Result Comment: Reported eGFR is based on the CKD-EPI 2020 equation that does not use a race coefficient. Performed By: #### P INR, 65744-8, 40642-8, CBCA, 50840-0, CMP, 4548-4, 6873-4 #### [facility] ([id number]) [address] [place] [address] 72120 #### HA1C #### [facility] ([id number]) [address], [address] [place] [address] Glucose [Mass/Vol] 139 mg/dL High 65-99 [facility] Comment on above: Performed By: #### P INR, 01012-5, 08507-2, CBCA, 08835-6, CMP, 4548-4, 6873-4 #### [facility] ([id number]) [address] [place] [address] 69607 #### HA1C #### [facility] ([id number]) [address] [facility], [address] [place] [address] Potassium [Moles/Vol] 3.7 mmol/L Normal 3.5-5.0 [facility] Comment on above: Performed By: #### P INR, 22966-8, 63451-0, CBCA, 86578-5, CMP, 4548-4, 6873-4 #### [facility] ([id number]) [address] [place] [address] 93004 #### HA1C #### [facility] ([id number]) [address], [address] [place] [address] Sodium [Moles/Vol] 132 mmol/L Low 134-146 [facility] Comment on above: Performed By: #### P INR, 34539-8, 78005-6, CBCA, 59321-1, CMP, 4548-4, 6873-4 #### [facility] ([id number]) [address] [place] [address] 11415 #### HA1C #### [facility] ([id number]) [address], [address] [place] [address] Urea nitrogen [Mass/Vol] 16 mg/dL Normal 5-27 [facility] Comment on above: Performed By: #### P INR, 88073-7, 35976-3, CBCA, 76386-3, CMP, 4548-4, 6873-4 #### [facility] ([id number]) [address] [place] [address] 75448 #### HA1C #### [facility] ([id number]) [address], [address] [place] [address] CBC AND AUTO DIFFon 05-31-20 24 ABSOLUTE BASOPHIL 0.1 X10E9/L Normal 0.0-0.2 [facility] Comment on above: Performed By: #### P INR, 27775-5, 17066-1, CBCA, 41742-4, CMP, 4548-4, 6873-4 #### [facility] ([id number]) [address] [place] [address] 05595 #### HA1C #### [facility] ([id number]) [address] [facility], [address] [place] [address] ABSOLUTE NEUTROPHIL 3.4 X10E9/L Normal 1.5-6.6 [facility] Comment on above: Performed By: #### P INR, 72744-7, 73297-1, CBCA, 08144-1, CMP, 4548-4, 6873-4 #### [facility] ([id number]) [address] [place] [address] 42003 #### HA1C #### [facility] ([id number]) [address], [address] [place] [address] Basophils/100 WBC (Bld) 1.1 % Normal [facility] Comment on above: Performed By: #### P INR, 68444-7, 61463-7, CBCA, 83806-4, CMP, 4548-4, 6873-4 #### [facility] ([id number]) [address] [place] [address] 54639 #### HA1C #### [facility] ([id number]) [address], [address] [place] [address] Eosinophils (Bld) [#/Vol] 0.4 10*3/uL Normal 0.0-0.4 [facility] Comment on above: Performed By: #### P INR, 33581-3, 41639-2, CBCA, 71596-5, CMP, 4548-4, 6873-4 #### [facility] ([id number]) [address] [place] [address] 04757 #### HA1C #### [facility] ([id number]) [address], [address] [place] [address] Eosinophils/100 WBC (Bld) 7.9 % Normal [facility] Comment on above: Performed By: #### P INR, 44274-2, 78855-4, CBCA, 63773-0, CMP, 4548-4, 6873-4 #### [facility] ([id number]) [address] [place] [address] 24390 #### HA1C #### [facility] ([id number]) [address], [address] [place] [address] Erythrocyte distribution width (RBC) [Ratio] 15.1 % High 11.5-15.0 [facility] Comment on above: Performed By: #### P INR, 26060-1, 04343-1, CBCA, 15637-3, CMP, 4548-4, 6873-4 #### [facility] ([id number]) [address] [place] [address] 24105 #### HA1C #### [facility] ([id number]) [address], [address] [place] [address] Hematocrit (Bld) [Volume fraction] 37.2 % Low 39-49 [facility] Comment on above: Performed By: #### P INR, 98894-7, 78753-2, CBCA, 01495-4, CMP, 4548-4, 6873-4 #### [facility] ([id number]) [address] [place] [address] 60609 #### HA1C #### [facility] ([id number]) [address] [facility], [address] [place] [address] Hemoglobin (Bld) [Mass/Vol] 12.5 g/dL Low 13.0-17.0 [facility] Comment on above: Performed By: #### P INR, 08221-2, 89774-6, CBCA, 27981-3, CMP, 4548-4, 6873-4 #### [facility] ([id number]) [address] [place] [address] 28976 #### HA1C #### [facility] ([id number]) [address] [facility], [address] [place] [address] Lymphocytes (Bld) [#/Vol] 1.2 10*3/uL Normal 1.0-3.5 [facility] Comment on above: Performed By: #### P INR, 80711-9, 33207-0, CBCA, 10042-4, CMP, 4548-4, 6873-4 #### [facility] ([id number]) [address] [place] [address] 50862 #### HA1C #### [facility] ([id number]) [address] [facility], [address] [place] [address] Lymphocytes/100 WBC (Bld) 21.2 % Normal [facility] Comment on above: Performed By: #### P INR, 30351-7, 65854-6, CBCA, 24518-1, CMP, 4548-4, 6873-4 #### [facility] ([id number]) [address] [place] [address] 78376 #### HA1C #### [facility] ([id number]) [address], [address] [place] [address] MCH (RBC) [Entitic mass] 27.4 pg Normal 27-34 [facility] Comment on above: Performed By: #### P INR, 42755-6, 82563-1, CBCA, 99489-8, CMP, 4548-4, 6873-4 #### [facility] ([id number]) [address] [place] [address] 27763 #### HA1C #### [facility] ([id number]) [address] [place] [address] MCHC (RBC) [Mass/Vol] 33.7 g/dL Normal 32-36 [facility] Comment on above: Performed By: #### P INR, 14560-7, 83213-7, CBCA, 59877-5, CMP, 4548-4, 6873-4 #### [facility] ([id number]) [address] [place] [address] 40114 #### HA1C #### [facility] ([id number]) [address], [address] [place] [address] MCV (RBC) [Entitic vol] 81 fL Normal 80-100 [facility] Comment on above: Performed By: #### P INR, 27020-1, 93000-7, CBCA, 84275-1, CMP, 4548-4, 6873-4 #### [facility] ([id number]) [address] [place] [address] #### HA1C #### [facility] ([id number]) [address], [address] [place] [address] Monocytes (Bld) [#/Vol] 0.4 10*3/uL Normal 0-0.9 [facility] Comment on above: Performed By: #### P INR, 30457-3, 52068-7, CBCA, 78292-3, CMP, 4548-4, 6873-4 #### [facility] ([id number]) [address] [place] [address] 56092 #### HA1C #### [facility] ([id number]) [address] [facility], [address] [place] [address] Monocytes/100 WBC (Bld) 6.7 % Normal [facility] Comment on above: Performed By: #### P INR, 61674-9, 83172-6, CBCA, 85269-3, CMP, 4548-4, 6873-4 #### [facility] ([id number]) [address] [place] [address] 29529 #### HA1C #### [facility] ([id number]) [address], [address] [place] [address] Neutrophils/100 WBC (Bld) 63.1 % Normal [facility] Comment on above: Performed By: #### P INR, 25161-6, 79229-3, CBCA, 91039-1, CMP, 4548-4, 6873-4 #### [facility] ([id number]) [address] [place] [address] 79723 #### HA1C #### [facility] ([id number]) [address], [address] [place] [address] Platelet mean volume (Bld) [Entitic vol] 6.9 fL Low 7-12 [facility] Comment on above: Performed By: #### P INR, 62657-0, 11724-5, CBCA, 46454-3, CMP, 4548-4, 6873-4 #### [facility] ([id number]) [address] [place] [address] 78446 #### HA1C #### [facility] ([id number]) [address] [facility], [address] [place] [address] Platelets (Bld) [#/Vol] 297 10*3/uL Normal 150-450 [facility] Comment on above: Performed By: #### P INR, 27039-8, 07965-1, CBCA, 29921-8, CMP, 4548-4, 6873-4 #### [facility] ([id number]) [address] [place] [address] 72136 #### HA1C #### [facility] ([id number]) [address] [facility], [address] [place] [address] RBC COUNT 4.57 X10E12/L Normal 4.10-5.70 [facility] Comment on above: Performed By: #### P INR, 72475-8, 48521-7, CBCA, 84575-4, CMP, 4548-4, 6873-4 #### [facility] ([id number]) [address] [place] [address] 97897 #### HA1C #### [facility] ([id number]) [address] [facility], [address] [place] [address] WBC (Bld) [#/Vol] 5.4 10*3/uL Normal 4.0-11.0 [facility] Comment on above: Performed By: #### P INR, 22139-0, 69538-3, CBCA, 61205-9, CMP, 4548-4, 6873-4 #### [facility] ([id number]) [address] [place] [address] 91576 #### HA1C #### [facility] ([id number]) [address] [facility], [address] [place] [address] Glucose Glucometer (BldC) [M ass/Vol]on 05-31-2024 Glucose [Mass/Vol] 201 mg/dL High 65-99 [facility] Glucose [Mass/Vol] 217 mg/dL High 65-99 [facility] Glucose [Mass/Vol] 189 mg/dL High 65-99 [facility] Glucose [Mass/Vol] 148 mg/dL High 65-99 [facility] CBC AND AUTO DIFFon 05-30-20 ABSOLUTE BASOPHIL 0.1 X10E9/L Normal 0.0-0.2 [facility] Comment on above: Performed By: #### P INR, 84992-2, 32027-0, CBCA, 36242-4, CMP, 4548-4, 6873-4 #### [facility] ([id number]) [address] [place] [address] 68669 #### HA1C #### [facility] ([id number]) [address] [facility], [address] [address] ABSOLUTE NEUTROPHIL 2.4 X10E9/L Normal 1.5-6.6 [facility] Comment on above: Performed By: #### P INR, 92100-9, 86156-3, CBCA, 24808-7, CMP, 4548-4, 6873-4 #### [facility] ([id number]) [address] [place] [address] 79049 #### HA1C #### [facility] ([id number]) [address] [facility], [address] [address] Basophils/100 WBC (Bld) 1.2 % Normal [facility] Comment on above: Performed By: #### P INR, 87590-5, 86360-4, CBCA, 39882-4, CMP, 4548-4, 6873-4 #### [facility] ([id number]) [address] [place] [address] 05810 #### HA1C #### [facility] ([id number]) [address] [place] [address] Eosinophils (Bld) [#/Vol] 0.4 10*3/uL Normal 0.0-0.4 [facility] Comment on above: Performed By: #### P INR, 38875-1, 86678-5, CBCA, 74414-4, CMP, 4548-4, 6873-4 #### [facility] ([id number]) [address] [place] [address] 22143 #### HA1C #### [facility] ([id number]) [address] [place] [address] Eosinophils/100 WBC (Bld) 10.0 % Normal [facility] Comment on above: Performed By: #### P INR, 16562-4, 47108-7, CBCA, 67601-9, CMP, 4548-4, 6873-4 #### [facility] ([id number]) [address] [place] [address] 69235 #### HA1C #### [facility] ([id number]) [address] [place] [address] Erythrocyte distribution width (RBC) [Ratio] 15.3 % High 11.5-15.0 [facility] Comment on above: Performed By: #### P INR, 05709-3, 85227-5, CBCA, 53654-7, CMP, 4548-4, 6873-4 #### [facility] ([id number]) [address] [place] [address] 84464 #### HA1C #### [facility] ([id number]) [address], [address] [place] [address] Hematocrit (Bld) [Volume fraction] 33.6 % Low 39-49 [facility] Comment on above: Performed By: #### P INR, 09627-6, 06159-5, CBCA, 24121-1, CMP, 4548-4, 6873-4 #### [facility] ([id number]) [address] [place] [address] 55760 #### HA1C #### [facility] ([id number]) [address], [address] [place] [address] Hemoglobin (Bld) [Mass/Vol] 11.3 g/dL Low 13.0-17.0 [facility] Comment on above: Performed By: #### P INR, 15735-5, 35658-3, CBCA, 19992-4, CMP, 4548-4, 6873-4 #### [facility] ([id number]) [address] [place] [address] 54224 #### HA1C #### [facility] ([id number]) [address] [facility] [address] [place] [address] Lymphocytes (Bld) [#/Vol] 1.1 10*3/uL Normal 1.0-3.5 [facility] Comment on above: Performed By: #### P INR, 20196-3, 47330-6, CBCA, 11972-4, CMP, 4548-4, 6873-4 #### [facility] ([id number]) [address] [place] [address] 18671 #### HA1C #### [facility] ([id number]) [address], [address] [place] [address] Lymphocytes/100 WBC (Bld) 24.4 % Normal [facility] Comment on above: Performed By: #### P INR, 83264-9, 72607-9, CBCA, 94883-5, CMP, 4548-4, 6873-4 #### [facility] ([id number]) [address] [place] [address] 00446 #### HA1C #### [facility] ([id number]) [address], [address] [place] [address] MCH (RBC) [Entitic mass] 27.2 pg Normal 27-34 [facility] Comment on above: Performed By: #### P INR, 87084-1, 21535-2, CBCA, 70571-8, CMP, 4548-4, 6873-4 #### [facility] ([id number]) [address] [place] [address] 99568 #### HA1C #### [facility] ([id number]) [address], [address] [place] [address] MCHC (RBC) [Mass/Vol] 33.5 g/dL Normal 32-36 [facility] Comment on above: Performed By: #### P INR, 51726-6, 42867-4, CBCA, 28331-4, CMP, 4548-4, 6873-4 #### [facility] ([id number]) [address] [place] [address] 40696 #### HA1C #### [facility] ([id number]) [address], [address] [place] [address] MCV (RBC) [Entitic vol] 81 fL Normal 80-100 [facility] Comment on above: Performed By: #### P INR, 75252-6, 78603-4, CBCA, 99867-2, CMP, 4548-4, 6873-4 #### [facility] ([id number]) [address] [place] [address] 62862 #### HA1C #### [facility] ([id number]) [address], [address] [place] [address] Monocytes (Bld) [#/Vol] 0.4 10*3/uL Normal 0-0.9 [facility] Comment on above: Performed By: #### P INR, 06069-5, 25002-6, CBCA, 82686-8, CMP, 4548-4, 6873-4 #### [facility] ([id number]) [address] [place] [address] 38933 #### HA1C #### [facility] ([id number]) [address] [facility], [address] [place] [address] Monocytes/100 WBC (Bld) 9.7 % Normal [facility] Comment on above: Performed By: #### P INR, 91940-7, 72920-0, CBCA, 24807-7, CMP, 4548-4, 6873-4 #### [facility] ([id number]) [address] [place] [address] 79190 #### HA1C #### [facility] ([id number]) [address] [facility], [address] [place] [address] Neutrophils/100 WBC (Bld) 54.7 % Normal [facility] Comment on above: Performed By: #### P INR, 67013-4, 63358-4, CBCA, 12908-5, CMP, 4548-4, 6873-4 #### [facility] ([id number]) [address] [place] [address] 41167 #### HA1C #### [facility] ([id number]) [address] [facility], [address] [place] [address] Platelet mean volume (Bld) [Entitic vol] 7.1 fL Normal 7-12 [facility] Comment on above: Performed By: #### P INR, 39109-7, 03044-9, CBCA, 06288-6, CMP, 4548-4, 6873-4 #### [facility] ([id number]) [address] [place] [address] #### HA1C #### [facility] ([id number]) [address], [address] [place] [address] Platelets (Bld) [#/Vol] 282 10*3/uL Normal 150-450 [facility] Comment on above: Performed By: #### P INR, 36131-3, 78674-7, CBCA, 85426-7, CMP, 4548-4, 6873-4 #### [facility] ([id number]) [address] [place] [address] #### HA1C #### [facility] ([id number]) [address], [address] [place] [address] RBC COUNT 4.14 X10E12/L Normal 4.10-5.70 [facility] Comment on above: Performed By: #### P INR, 42379-8, 12853-3, CBCA, 59403-7, CMP, 4548-4, 6873-4 #### [facility] ([id number]) [address] [place] [address] #### HA1C #### [facility] ([id number]) [address], [address] [place] [address] WBC (Bld) [#/Vol] 4.4 10*3/uL Normal 4.0-11.0 [facility] Comment on above: Performed By: #### P INR, 22222-1, 09485-2, CBCA, 42051-1, CMP, 4548-4, 6873-4 #### [facility] ([id number]) [address] [place] [address] #### HA1C #### [facility] ([id number]) [address], [address] [place] [address] COMPREHENSIVE METABOLIC PANE [place] 05-30-2024 Albumin [Mass/Vol] 3.3 g/dL Normal 3.2-5.3 [facility] Comment on above: Performed By: #### P INR, 14289-0, 95809-4, CBCA, 63610-7, CMP, 4548-4, 6873-4 #### [facility] ([id number]) [address] [place] [address] #### HA1C #### [facility] ([id number]) [address] [facility], [address] [place] [address] ALP [Catalytic activity/Vol] 82 U/L Normal 39-130 [facility] Comment on above: Performed By: #### P INR, 78020-4, 40554-2, CBCA, 45133-1, CMP, 4548-4, 6873-4 #### [facility] ([id number]) [address] [place] [address] #### HA1C #### [facility] ([id number]) [address] [place] [address], [address] [place] [address] ALT [Catalytic activity/Vol] 27 U/L Normal 0-40 [facility] Comment on above: Performed By: #### P INR, 23754-7, 42155-6, CBCA, 88034-3, CMP, 4548-4, 6873-4 #### [facility] ([id number]) [address] [place] [address] #### HA1C #### [facility] ([id number]) [address] [place] [address], [address] [place] [address] Anion gap [Moles/Vol] 7 mmol/L Normal 5-15 [facility] Comment on above: Performed By: #### P INR, 82366-6, 42052-3, CBCA, 82545-2, CMP, 4548-4, 6873-4 #### [facility] ([id number]) [address] [place] [address] #### HA1C #### [facility] ([id number]) [address], [address] [place] [address] AST [Catalytic activity/Vol] 21 U/L Normal 0-41 [facility] Comment on above: Performed By: #### P INR, 58322-2, 17780-7, CBCA, 53239-2, CMP, 4548-4, 6873-4 #### [facility] ([id number]) [address] [place] [address] #### HA1C #### [facility] ([id number]) [address], [address] [place] [address] Bilirubin [Mass/Vol] 0.6 mg/dL Normal 0.3-1.2 [facility] Comment on above: Performed By: #### P INR, 01672-2, 99644-0, CBCA, 44188-4, CMP, 4548-4, 6873-4 #### [facility] [facility] ([id number]) [address] [place] [address] 15647 #### HA1C #### [facility] ([id number]) [address], [address] [place] [address] Calcium [Mass/Vol] 8.2 mg/dL Low 8.5-10.5 [facility] Comment on above: Performed By: #### P INR, 50303-6, 22140-9, CBCA, 20151-1, CMP, 4548-4, 6873-4 #### [facility] ([id number]) [address] [place] [address] 57249 #### HA1C #### [facility] ([id number]) [address], [address] [place] [address] Chloride [Moles/Vol] 103 mmol/L Normal 98-109 [facility] Comment on above: Performed By: #### P INR, 60041-3, 80392-0, CBCA, 34030-7, CMP, 4548-4, 6873-4 #### [facility] ([id number]) [address] [place] [address] 31000 #### HA1C #### [facility] ([id number]) [address], [address] [place] [address] CO2 [Moles/Vol] 23 mmol/L Normal 22-32 [facility] Comment on above: Performed By: #### P INR, 14831-4, 22466-1, CBCA, 52286-9, CMP, 4548-4, 6873-4 #### [facility] ([id number]) [address] [place] [address] 18450 #### HA1C #### [facility] ([id number]) [address] [facility], [address] [place] [address] Creatinine [Mass/Vol] 0.69 mg/dL Low 0.70-1.20 [facility] Comment on above: Result Comment: METH OD TRACEABLE TO IDMS STANDARD Performed By: #### P INR, 85429-0, 96084-5, CBCA, 40682-6, CMP, 4548-4, 6873-4 #### [facility] ([id number]) [address] [place] [address] 44382 #### HA1C #### [facility] ([id number]) [address], [address] [place] [address] eGFR (CKD-EPI) NON-RACE DEPENDENT >90 Normal >59 [facility] Comment on above: Result Comment: Reported eGFR is based on the CKD-EPI 2020 equation that does not use a race coefficient. Performed By: #### P INR, 12786-1, 51665-8, CBCA, 20989-2, CMP, 4548-4, 6873-4 #### [facility] ([id number]) [address] [place] [address] 29352 #### HA1C #### [facility] ([id number]) [address], [address] [place] [address] Glucose [Mass/Vol] 132 mg/dL High 65-99 [facility] Comment on above: Performed By: #### P INR, 47488-9, 69523-2, CBCA, 24894-2, CMP, 4548-4, 6873-4 #### [facility] ([id number]) [address] [place] [address] 75581 #### HA1C #### [facility] ([id number]) [address], [address] [place] [address] Potassium [Moles/Vol] 3.6 mmol/L Normal 3.5-5.0 [facility] Comment on above: Performed By: #### P INR, 43017-0, 12900-2, CBCA, 70957-8, CMP, 4548-4, 6873-4 #### [facility] ([id number]) [address] [place] [address] 59306 #### HA1C #### [facility] ([id number]) [address], [address] [place] [address] Protein [Mass/Vol] 6.4 g/dL Normal 6.0-8.0 [facility] Comment on above: Performed By: #### P INR, 37505-4, 77103-0, CBCA, 56049-6, CMP, 4548-4, 6873-4 #### [facility] ([id number]) [address] [place] [address] 14956 #### HA1C #### [facility] ([id number]) [address], [address] [place] [address] Sodium [Moles/Vol] 133 mmol/L Low 134-146 [facility] Comment on above: Performed By: #### P INR, 65453-9, 29114-7, CBCA, 00688-8, CMP, 4548-4, 6873-4 #### [facility] ([id number]) [address] [place] [address] 25440 #### HA1C #### [facility] ([id number]) [address], [address] [place] [address] Urea nitrogen [Mass/Vol] 25 mg/dL Normal 5-27 [facility] Comment on above: Performed By: #### P INR, 16192-2, 51970-1, CBCA, 81578-0, CMP, 4548-4, 6873-4 #### [facility] ([id number]) [address] [place] [address] 56568 #### HA1C #### [facility] ([id number]) [address], [address] [place] [address] Glucose Glucometer (dC) [M ass/Vol]on 05-30-2024 Glucose [Mass/Vol] 194 mg/dL High 65-99 [facility] Glucose [Mass/Vol] 176 mg/dL High 65-99 [facility] Glucose [Mass/Vol] 131 mg/dL High 65-99 [facility] Glucose [Mass/Vol] 122 mg/dL High 65-99 [facility] CBC AND AUTO DIFFon 05-29-20 24 ABSOLUTE BASOPHIL 0.0 X10E9/L Normal 0.0-0.2 [facility] Comment on above: Performed By: #### P INR, 21969-3, 45756-9, CBCA, 91294-2, CMP, 4548-4, 6873-4 #### [facility] ([id number]) [address] [place] [address] 01686 #### HA1C #### [facility] ([id number]) [address], [address] [place] [address] ABSOLUTE NEUTROPHIL 3.0 X10E9/L Normal 1.5-6.6 [facility] Comment on above: Performed By: #### P INR, 60129-7, 60615-5, CBCA, 25392-2, CMP, 4548-4, 6873-4 #### [facility] ([id number]) [address] [place] [address] 74816 #### HA1C #### [facility] ([id number]) [address], [address] [place] [address] Basophils/100 WBC (Bld) 0.5 % Normal [facility] Comment on above: Performed By: #### P INR, 77269-0, 57804-8, CBCA, 97947-4, CMP, 4548-4, 6873-4 #### [facility] ([id number]) [address] [place] [address] 55068 #### HA1C #### [facility] ([id number]) [address], [address] [place] [address] Eosinophils (Bld) [#/Vol] 0.3 10*3/uL Normal 0.0-0.4 [facility] Comment on above: Performed By: #### P INR, 18482-7, 85026-3, CBCA, 35037-8, CMP, 4548-4, 6873-4 #### [facility] ([id number]) [address] [place] [address] 91987 #### HA1C #### [facility] ([id number]) [address], [address] [place] [address] Eosinophils/100 WBC (Bld) 6.0 % Normal [facility] Comment on above: Performed By: #### P INR, 89534-5, 76459-8, CBCA, 29826-5, CMP, 4548-4, 6873-4 #### [facility] ([id number]) [address] [place] [address] 75161 #### HA1C #### [facility] ([id number]) [address], [address] [place] [address] Erythrocyte distribution width (RBC) [Ratio] 15.7 % High 11.5-15.0 [facility] Comment on above: Performed By: #### P INR, 67326-7, 10320-4, CBCA, 21275-0, CMP, 4548-4, 6873-4 #### [facility] ([id number]) [address] [place] [address] 64682 #### HA1C #### [facility] ([id number]) [address], [address] [place] [address] Hematocrit (Bld) [Volume fraction] 31.8 % Low 39-49 [facility] Comment on above: Performed By: #### P INR, 40125-7, 54246-2, CBCA, 93299-4, CMP, 4548-4, 6873-4 #### [facility] ([id number]) [address] [place] [address] 12895 #### HA1C #### [facility] ([id number]) [address], [address] [place] [address] Hemoglobin (Bld) [Mass/Vol] 10.7 g/dL Low 13.0-17.0 [facility] Comment on above: Performed By: #### P INR, 15042-1, 20044-8, CBCA, 06018-8, CMP, 4548-4, 6873-4 #### [facility] ([id number]) [address] [place] [address] 89146 #### HA1C #### [facility] ([id number]) [address] [facility], [address] [place] [address] Lymphocytes (Bld) [#/Vol] 0.7 10*3/uL Low 1.0-3.5 [facility] Comment on above: Performed By: #### P INR, 40897-7, 79392-8, CBCA, 67785-9, CMP, 4548-4, 6873-4 #### [facility] ([id number]) [address] [place] [address] 71988 #### HA1C #### [facility] ([id number]) [address] [place] [address], [address] [place] [address] Lymphocytes/100 WBC (Bld) 14.9 % Normal [facility] Comment on above: Performed By: #### P INR, 04674-2, 93161-5, CBCA, 63369-2, CMP, 4548-4, 6873-4 #### [facility] ([id number]) [address] [place] [address] 27987 #### HA1C #### [facility] ([id number]) [address] [facility], [address] [place] [address] MCH (RBC) [Entitic mass] 27.7 pg Normal 27-34 [facility] Comment on above: Performed By: #### P INR, 32775-4, 80514-9, CBCA, 38011-1, CMP, 4548-4, 6873-4 #### [facility] ([id number]) [address] [place] [address] 45614 #### HA1C #### [facility] ([id number]) [address] [facility], [address] [place] [address] MCHC (RBC) [Mass/Vol] 33.7 g/dL Normal 32-36 [facility] Comment on above: Performed By: #### P INR, 21956-6, 24167-4, CBCA, 33409-5, CMP, 4548-4, 6873-4 #### [facility] ([id number]) [address] [place] [address] 09052 #### HA1C #### [facility] ([id number]) [address], [address] [place] [address] MCV (RBC) [Entitic vol] 82 fL Normal 80-100 [facility] Comment on above: Performed By: #### P INR, 34053-3, 10863-8, CBCA, 26289-4, CMP, 4548-4, 6873-4 #### [facility] ([id number]) [address] [place] [address] 72550 #### HA1C #### [facility] ([id number]) [address] [facility], [address] [place] [address] Monocytes (Bld) [#/Vol] 0.5 10*3/uL Normal 0-0.9 [facility] Comment on above: Performed By: #### P INR, 24509-8, 94356-7, CBCA, 61803-4, CMP, 4548-4, 6873-4 #### [facility] ([id number]) [address] [place] [address] 69075 #### HA1C #### [facility] ([id number]) [address], [address] [place] [address] Monocytes/100 WBC (Bld) 11.2 % Normal [facility] Comment on above: Performed By: #### P INR, 63462-2, 34088-9, CBCA, 68196-6, CMP, 4548-4, 6873-4 #### [facility] ([id number]) [address] [place] [address] 02383 #### HA1C #### [facility] ([id number]) [address], [address] [place] [address] Neutrophils/100 WBC (Bld) 67.4 % Normal [facility] Comment on above: Performed By: #### P INR, 50478-6, 02271-3, CBCA, 01656-5, CMP, 4548-4, 6873-4 #### [facility] ([id number]) [address] [place] [address] 51861 #### HA1C #### [facility] ([id number]) [address] [facility], [address] [place] [address] Platelet mean volume (Bld) [Entitic vol] 7.4 fL Normal 7-12 [facility] Comment on above: Performed By: #### P INR, 29113-6, 32604-9, CBCA, 12885-4, CMP, 4548-4, 6873-4 #### [facility] ([id number]) [address] [place] [address] 51764 #### HA1C #### [facility] ([id number]) [address] [facility] [address] [place] [address] Platelets (Bld) [#/Vol] 263 10*3/uL Normal 150-450 [facility] Comment on above: Performed By: #### P INR, 87374-9, 19380-6, CBCA, 46791-3, CMP, 4548-4, 6873-4 #### [facility] ([id number]) [address] [place] [address] 03386 #### HA1C #### [facility] ([id number]) [address] [facility], [address] [place] [address] RBC COUNT 3.86 X10E12/L Low 4.10-5.70 [facility] Comment on above: Performed By: #### P INR, 62442-9, 84224-6, CBCA, 63968-0, CMP, 4548-4, 6873-4 #### [facility] ([id number]) [address] [place] [address] 97025 #### HA1C #### [facility] ([id number]) [address] [facility], [address] [place] [address] WBC (Bld) [#/Vol] 4.4 10*3/uL Normal 4.0-11.0 [facility] Comment on above: Performed By: #### P INR, 00840-1, 82232-6, CBCA, 65280-2, CMP, 4548-4, 6873-4 #### [facility] ([id number]) [address] [place] [address] 69836 #### HA1C #### [facility] ([id number]) [address] [facility], [address] [place] [address] COMPREHENSIVE METABOLIC PANE [place] 05-29-2024 Albumin [Mass/Vol] 3.1 g/dL Low 3.2-5.3 [facility] Comment on above: Performed By: #### P INR, 56919-2, 81654-5, CBCA, 64084-9, CMP, 4548-4, 6873-4 #### [facility] ([id number]) [address] [place] [address] 19982 #### HA1C #### [facility] ([id number]) [address] [facility], [address] [place] [address] ALP [Catalytic activity/Vol] 79 U/L Normal 39-130 [facility] Comment on above: Performed By: #### P INR, 36452-0, 84009-7, CBCA, 15282-0, CMP, 4548-4, 6873-4 #### [facility] ([id number]) [address] [place] [address] 85774 #### HA1C #### [facility] ([id number]) [address], [address] [place] [address] ALT [Catalytic activity/Vol] 23 U/L Normal 0-40 [facility] Comment on above: Performed By: #### P INR, 82274-5, 67691-3, CBCA, 72923-9, CMP, 4548-4, 6873-4 #### [facility] ([id number]) [address] [place] [address] 46707 #### HA1C #### [facility] ([id number]) [address] [facility], [address] [place] [address] Anion gap [Moles/Vol] 9 mmol/L Normal 5-15 [facility] Comment on above: Performed By: #### P INR, 41100-7, 87614-7, CBCA, 88685-9, CMP, 4548-4, 6873-4 #### [facility] ([id number]) [address] [place] [address] 43076 #### HA1C #### [facility] ([id number]) [address] [facility], [address] [place] [address] AST [Catalytic activity/Vol] 20 U/L Normal 0-41 [facility] Comment on above: Performed By: #### P INR, 82949-4, 85043-9, CBCA, 97278-0, CMP, 4548-4, 6873-4 #### [facility] ([id number]) [address] [place] [address] 47742 #### HA1C #### [facility] ([id number]) [address] [facility], [address] [place] [address] Bilirubin [Mass/Vol] 0.5 mg/dL Normal 0.3-1.2 [facility] Comment on above: Performed By: #### P INR, 74216-7, 89375-0, CBCA, 79717-9, CMP, 4548-4, 6873-4 #### [facility] ([id number]) [address] [place] [address] 36742 #### HA1C #### [facility] ([id number]) [address], [address] [place] [address] Calcium [Mass/Vol] 8.6 mg/dL Normal 8.5-10.5 [facility] Comment on above: Performed By: #### P INR, 13432-5, 98429-3, CBCA, 06735-8, CMP, 4548-4, 6873-4 #### [facility] ([id number]) [address] [place] [address] 53872 #### HA1C #### [facility] ([id number]) [address] [place] [address] Chloride [Moles/Vol] 102 mmol/L Normal 98-109 [facility] Comment on above: Performed By: #### P INR, 05077-2, 23386-9, CBCA, 88652-1, CMP, 4548-4, 6873-4 #### [facility] ([id number]) [address] [place] [address] 82650 #### HA1C #### [facility] ([id number]) [address], [address] [place] [address] CO2 [Moles/Vol] 24 mmol/L Normal 22-32 [facility] Comment on above: Performed By: #### P INR, 86054-9, 34625-1, CBCA, 23103-8, CMP, 4548-4, 6873-4 #### [facility] ([id number]) [address] [place] [address] 35058 #### HA1C #### [facility] ([id number]) [address], [address] [place] [address] Creatinine [Mass/Vol] 1.13 mg/dL Normal 0.70-1.20 [facility] Comment on above: Result Comment: METH OD TRACEABLE TO IDMS STANDARD Performed By: #### P INR, 08654-0, 90698-7, CBCA, 16464-9, CMP, 4548-4, 6873-4 #### [facility] ([id number]) [address] [place] [address] 43439 #### HA1C #### [facility] ([id number]) [address], [address] [place] [address] GFR/1.73 sq M.predicted among non-blacks MDRD (S/P/Bld) [Vol rate/Area] 70 mL/min/{1.73_m2} Normal >59 [facility] Comment on above: Result Comment: Reported eGFR is based on the CKD-EPI 2020 equation that does not use a race coefficient. Performed By: #### P INR, 76689-9, 13901-9, CBCA, 95544-0, CMP, 4548-4, 6873-4 #### [facility] ([id number]) [address] [place] [address] 32222 #### HA1C #### [facility] ([id number]) [address], [address] [place] [address] Glucose [Mass/Vol] 133 mg/dL High 65-99 [facility] Comment on above: Performed By: #### P INR, 53128-5, 56320-0, CBCA, 97465-2, CMP, 4548-4, 6873-4 #### [facility] ([id number]) [address] [place] [address] 72474 #### HA1C #### [facility] ([id number]) [address], [address] [place] [address] Potassium [Moles/Vol] 3.5 mmol/L Normal 3.5-5.0 [facility] Comment on above: Performed By: #### P INR, 04426-1, 72848-1, CBCA, 98818-0, CMP, 4548-4, 6873-4 #### [facility] ([id number]) [address] [place] [address] 88404 #### HA1C #### [facility] ([id number]) [address], [address] [place] [address] Protein [Mass/Vol] 6.2 g/dL Normal 6.0-8.0 [facility] Comment on above: Performed By: #### P INR, 06710-1, 84491-6, CBCA, 94887-8, CMP, 4548-4, 6873-4 #### [facility] ([id number]) [address] [place] [address] 64059 #### HA1C #### [facility] ([id number]) [address], [address] [place] [address] Sodium [Moles/Vol] 135 mmol/L Normal 134-146 [facility] Comment on above: Performed By: #### P INR, 89673-1, 34296-2, CBCA, 52724-4, CMP, 4548-4, 6873-4 #### [facility] ([id number]) [address] [place] [address] 74009 #### HA1C #### [facility] ([id number]) [address], [address] [place] [address] Urea nitrogen [Mass/Vol] 52 mg/dL High 5-27 [facility] Comment on above: Performed By: #### P INR, 83416-4, 69634-6, CBCA, 13163-1, CMP, 4548-4, 6873-4 #### [facility] ([id number]) [address] [place] [address] [place] [address] #### HA1C #### [facility] ([id number]) [address] [facility], [address] [place] [address] Glucose Glucometer (BldC) [M ass/Vol]on 05-29-2024 Glucose [Mass/Vol] 167 mg/dL High 65-99 [facility] Glucose [Mass/Vol] 127 mg/dL High 65-99 [facility] Glucose [Mass/Vol] 168 mg/dL High 65-99 [facility] POTASSIUMon 05-29-2024 Potassium [Moles/Vol] 4.1 mmol/L Normal 3.5-5.0 [facility] Comment on above: Performed By: #### P INR, 61795-7, 63357-4, CBCA, 56439-2, CMP, 4548-4, 6873-4 #### [facility] ([id number]) [address] [place] [address] 25215 #### HA1C #### [facility] ([id number]) [address] [place] [address], [address] [place] [address] Potassium [Moles/Vol] 3.7 mmol/L Normal 3.5-5.0 [facility] Comment on above: Performed By: #### P INR, 22508-7, 54949-9, CBCA, 39189-9, CMP, 4548-4, 6873-4 #### [facility] ([id number]) [address] [place] [address] #### HA1C #### [facility] ([id number]) [address] [place] [address], [address] [place] [address] CBC AND AUTO DIFFon 05-28-20 24 ABSOLUTE BASOPHIL 0.0 X10E9/L Normal 0.0-0.2 [facility] Comment on above: Performed By: #### P INR, 42349-9, 44205-9, CBCA, 17011-1, CMP, 4548-4, 6873-4 #### [facility] ([id number]) [address] [place] [address] #### HA1C #### [facility] ([id number]) [address], [address] [place] [address] ABSOLUTE NEUTROPHIL 5.2 X10E9/L Normal 1.5-6.6 [facility] Comment on above: Performed By: #### P INR, 65672-8, 35678-0, CBCA, 90553-5, CMP, 4548-4, 6873-4 #### [facility] ([id number]) [address] [place] [address] #### HA1C #### [facility] ([id number]) [address], [address] [place] [address] Basophils/100 WBC (Bld) 0.2 % Normal [facility] Comment on above: Performed By: #### P INR, 06585-0, 72042-7, CBCA, 83480-9, CMP, 4548-4, 6873-4 #### [facility] ([id number]) [address] [place] [address] #### HA1C #### [facility] ([id number]) [address], [address] [place] [address] Eosinophils (Bld) [#/Vol] 0.1 10*3/uL Normal 0.0-0.4 [facility] Comment on above: Performed By: #### P INR, 88221-7, 32210-0, CBCA, 35657-0, CMP, 4548-4, 6873-4 #### [facility] ([id number]) [address] [place] [address] #### HA1C #### [facility] ([id number]) [address], [address] [place] [address] Eosinophils/100 WBC (Bld) 1.1 % Normal [facility] Comment on above: Performed By: #### P INR, 19629-0, 53629-0, CBCA, 73145-7, CMP, 4548-4, 6873-4 #### [facility] ([id number]) [address] [place] [address] #### HA1C #### [facility] ([id number]) [address], [facility] [address] [place] [address] Erythrocyte distribution width (RBC) [Ratio] 15.6 % High 11.5-15.0 [facility] Comment on above: Performed By: #### P INR, 19366-4, 40129-1, CBCA, 84067-1, CMP, 4548-4, 6873-4 #### [facility] ([id number]) [address] [place] [address] #### HA1C #### [facility] ([id number]) [address] [address] [place] [address] Hematocrit (Bld) [Volume fraction] 33.8 % Low 39-49 [facility] Comment on above: Performed By: #### P INR, 95510-3, 50269-8, CBCA, 13702-8, CMP, 4548-4, 6873-4 #### [facility] ([id number]) [address] [place] [address] #### HA1C #### [facility] ([id number]) [address] [address] Hemoglobin (Bld) [Mass/Vol] 11.2 g/dL Low 13.0-17.0 [facility] Comment on above: Performed By: #### P INR, 53417-3, 14101-6, CBCA, 66708-5, CMP, 4548-4, 6873-4 #### [facility] ([id number]) [address] [place] [address] 270[address] #### HA1C #### [facility] ([id number]) [address], [address] [place] [address] Lymphocytes (Bld) [#/Vol] 0.6 10*3/uL Low 1.0-3.5 [facility] Comment on above: Performed By: #### P INR, 76916-4, 04110-8, CBCA, 97944-9, CMP, 4548-4, 6873-4 #### [facility] ([id number]) [address] [place] [address] 21353 #### HA1C #### [facility] ([id number]) [address] [place] [address] Lymphocytes/100 WBC (Bld) 9.4 % Normal [facility] Comment on above: Performed By: #### P INR, 03343-9, 58129-7, CBCA, 66324-4, CMP, 4548-4, 6873-4 #### [facility] ([id number]) [address] [place] [address] 55194 #### HA1C #### [facility] ([id number]) [address], [address] [place] [address] MCH (RBC) [Entitic mass] 27.4 pg Normal 27-34 [facility] Comment on above: Performed By: #### P INR, 18697-9, 55837-2, CBCA, 21173-7, CMP, 4548-4, 6873-4 #### [facility] ([id number]) [address] [place] [address] 15619 #### HA1C #### [facility] ([id number]) [address], [address] [place] [address] MCHC (RBC) [Mass/Vol] 33.2 g/dL Normal 32-36 [facility] Comment on above: Performed By: #### P INR, 56806-1, 05188-3, CBCA, 45961-5, CMP, 4548-4, 6873-4 #### [facility] ([id number]) [address] [place] [address] 31445 #### HA1C #### [facility] ([id number]) [address], [address] [place] [address] MCV (RBC) [Entitic vol] 83 fL Normal 80-100 [facility] Comment on above: Performed By: #### P INR, 90138-4, 24979-0, CBCA, 61206-3, CMP, 4548-4, 6873-4 #### [facility] ([id number]) [address] [place] [address] 83739 #### HA1C #### [facility] ([id number]) [address] [facility], [address] [place] [address] Monocytes (Bld) [#/Vol] 0.6 10*3/uL Normal 0-0.9 [facility] Comment on above: Performed By: #### P INR, 55767-6, 56169-9, CBCA, 37776-3, CMP, 4548-4, 6873-4 #### [facility] ([id number]) [address] [place] [address] 20062 #### HA1C #### [facility] ([id number]) [address] [facility], [address] [place] [address] Monocytes/100 WBC (Bld) 9.1 % Normal [facility] Comment on above: Performed By: #### P INR, 42704-2, 02353-7, CBCA, 99300-3, CMP, 4548-4, 6873-4 #### [facility] ([id number]) [address] [place] [address] 93002 #### HA1C #### [facility] ([id number]) [address], [address] [place] [address] Neutrophils/100 WBC (Bld) 80.2 % Normal [facility] Comment on above: Performed By: #### P INR, 67788-4, 08713-0, CBCA, 77718-3, CMP, 4548-4, 6873-4 #### [facility] ([id number]) [address] [place] [address] 27226 #### HA1C #### [facility] ([id number]) [address], [address] [place] [address] Platelet mean volume (Bld) [Entitic vol] 7.8 fL Normal 7-12 [facility] Comment on above: Performed By: #### P INR, 28142-7, 45262-1, CBCA, 91606-5, CMP, 4548-4, 6873-4 #### [facility] ([id number]) [address] [place] [address] 65548 #### HA1C #### [facility] ([id number]) [address], [address] [place] [address] Platelets (Bld) [#/Vol] 263 10*3/uL Normal 150-450 [facility] Comment on above: Performed By: #### P INR, 93648-5, 31591-8, CBCA, 38148-2, CMP, 4548-4, 6873-4 #### [facility] ([id number]) [address] [place] [address] 33950 #### HA1C #### [facility] ([id number]) [address], [address] [place] [address] RBC COUNT 4.09 X10E12/L Low 4.10-5.70 [facility] Comment on above: Performed By: #### P INR, 01326-5, 05510-5, CBCA, 85879-8, CMP, 4548-4, 6873-4 #### [facility] ([id number]) [address] [place] [address] 28666 #### HA1C #### [facility] ([id number]) [address] [facility], [address] [place] [address] WBC (Bld) [#/Vol] 6.5 10*3/uL Normal 4.0-11.0 [facility] Comment on above: Performed By: #### P INR, 22761-6, 88846-2, CBCA, 91832-1, CMP, 4548-4, 6873-4 #### [facility] ([id number]) [address] [place] [address] 74940 #### HA1C #### [facility] ([id number]) [address] [facility], [address] [place] [address] COMPREHENSIVE METABOLIC PANE [place] 05-28-2024 Albumin [Mass/Vol] 3.6 g/dL Normal 3.2-5.3 [facility] Comment on above: Performed By: #### P INR, 30497-3, 88036-9, CBCA, 31987-4, CMP, 4548-4, 6873-4 #### [facility] ([id number]) [address] [place] [address] 70717 #### HA1C #### [facility] ([id number]) [address] [facility], [address] [place] [address] ALP [Catalytic activity/Vol] 91 U/L Normal 39-130 [facility] Comment on above: Performed By: #### P INR, 75996-6, 27211-1, CBCA, 50075-4, CMP, 4548-4, 6873-4 #### [facility] ([id number]) [address] [place] [address] 67015 #### HA1C #### [facility] ([id number]) [address], [address] [place] [address] ALT [Catalytic activity/Vol] 21 U/L Normal 0-40 [facility] Comment on above: Performed By: #### P INR, 67481-4, 17901-6, CBCA, 12188-9, CMP, 4548-4, 6873-4 #### [facility] ([id number]) [address] [place] [address] 27236 #### HA1C #### [facility] ([id number]) [address], [address] [place] [address] Anion gap [Moles/Vol] 12 mmol/L Normal 5-15 [facility] Comment on above: Performed By: #### P INR, 43127-4, 73605-4, CBCA, 14223-3, CMP, 4548-4, 6873-4 #### [facility] ([id number]) [address] [place] [address] 23053 #### HA1C #### [facility] ([id number]) [address], [address] [place] [address] AST [Catalytic activity/Vol] 18 U/L Normal 0-41 [facility] Comment on above: Performed By: #### P INR, 74425-0, 59963-9, CBCA, 94150-4, CMP, 4548-4, 6873-4 #### [facility] ([id number]) [address] [place] [address] 91866 #### HA1C #### [facility] ([id number]) [address], [address] [place] [address] Bilirubin [Mass/Vol] 0.7 mg/dL Normal 0.3-1.2 [facility] Comment on above: Performed By: #### P INR, 27718-5, 64187-2, CBCA, 82820-1, CMP, 4548-4, 6873-4 #### [facility] ([id number]) [address] [place] [address] 86631 #### HA1C #### [facility] ([id number]) [address] [place] [address] Calcium [Mass/Vol] 8.9 mg/dL Normal 8.5-10.5 [facility] Comment on above: Performed By: #### P INR, 88493-8, 24135-9, CBCA, 70370-3, CMP, 4548-4, 6873-4 #### [facility] ([id number]) [address] [place] [address] 04242 #### HA1C #### [facility] ([id number]) [address] [place] [address] Chloride [Moles/Vol] 98 mmol/L Normal 98-109 [facility] Comment on above: Performed By: #### P INR, 35443-9, 13440-3, CBCA, 06554-5, CMP, 4548-4, 6873-4 #### [facility] ([id number]) [address] [place] [address] 18255 #### HA1C #### [facility] ([id number]) [address] [place] [address] CO2 [Moles/Vol] 23 mmol/L Normal 22-32 [facility] Comment on above: Performed By: #### P INR, 61148-8, 66195-4, CBCA, 63918-4, CMP, 4548-4, 6873-4 #### [facility] ([id number]) [address] [place] [address] 21706 #### HA1C #### [facility] ([id number]) [address] [facility], [address] [place] [address] Creatinine [Mass/Vol] 1.88 mg/dL High 0.70-1.20 [facility] Comment on above: Result Comment: METH OD TRACEABLE TO IDMS STANDARD Performed By: #### P INR, 96135-8, 02127-0, CBCA, 28478-3, CMP, 4548-4, 6873-4 #### [facility] ([id number]) [address] [place] [address] 98789 #### HA1C #### [facility] ([id number]) [address] [facility], [address] [place] [address] GFR/1.73 sq M.predicted among non-blacks MDRD (S/P/Bld) [Vol rate/Area] 38 mL/min/{1.73_m2} Low >59 [facility] Comment on above: Result Comment: Reported eGFR is based on the CKD-EPI 2020 equation that does not use a race coefficient. Performed By: #### P INR, 43203-6, 34504-4, CBCA, 53778-0, CMP, 4548-4, 6873-4 #### [facility] ([id number]) [address] [place] [address] 65069 #### HA1C #### [facility] ([id number]) [address] [facility], [address] [place] [address] Glucose [Mass/Vol] 157 mg/dL High 65-99 [facility] Comment on above: Performed By: #### P INR, 92620-7, 65789-7, CBCA, 02471-1, CMP, 4548-4, 6873-4 #### [facility] ([id number]) [address] [place] [address] 76593 #### HA1C #### [facility] ([id number]) [address] [facility], [address] [place] [address] Potassium [Moles/Vol] 3.6 mmol/L Normal 3.5-5.0 [facility] Comment on above: Performed By: #### P INR, 64050-9, 86763-6, CBCA, 32009-3, CMP, 4548-4, 6873-4 #### [facility] ([id number]) [address] [place] [address] 98229 #### HA1C #### [facility] ([id number]) [address] [facility], [address] [place] [address] Protein [Mass/Vol] 6.8 g/dL Normal 6.0-8.0 [facility] Comment on above: Performed By: #### P INR, 22374-0, 25216-8, CBCA, 27479-3, CMP, 4548-4, 6873-4 #### [facility] ([id number]) [address] [place] [address] 20278 #### HA1C #### [facility] ([id number]) [address] [facility], [address] [place] [address] Sodium [Moles/Vol] 133 mmol/L Low 134-146 [facility] Comment on above: Performed By: #### P INR, 09682-7, 36701-7, CBCA, 57155-2, CMP, 4548-4, 6873-4 #### [facility] ([id number]) [address] [place] [address] 95808 #### HA1C #### [facility] ([id number]) [address] [facility], [address] [place] [address] Urea nitrogen [Mass/Vol] 87 mg/dL High 5-27 [facility] Comment on above: Performed By: #### P INR, 53293-7, 83002-3, CBCA, 57420-9, CMP, 4548-4, 6873-4 #### [facility] ([id number]) [address] [place] [address] 01198 #### HA1C #### [facility] ([id number]) [address] [facility], [address] [place] [address] Glucose Glucometer (BldC) [M ass/Vol]on 05-28-2024 Glucose [Mass/Vol] 148 mg/dL High 65-99 [facility] Glucose [Mass/Vol] 174 mg/dL High 65-99 [facility] Glucose [Mass/Vol] 177 mg/dL High 65-99 [facility] MAGNESIUMon 05-28-2024 Magnesium [Mass/Vol] 2.1 mg/dL Normal 1.8-2.6 [facility] Comment on above: Performed By: #### P INR, 94286-5, 65404-7, CBCA, 67720-9, CMP, 4548-4, 6873-4 #### [facility] ([id number]) [address] [place] [address] 50822 #### HA1C #### [facility] ([id number]) [facility] [facility], [address] [place] [address] PHOSPHORUSon 05-28-2024 Phosphate [Mass/Vol] 4.4 mg/dL Normal 2.4-4.9 [facility] Comment on above: Performed By: #### P INR, 99070-5, 46744-5, CBCA, 14265-2, CMP, 4548-4, 6873-4 #### [facility] ([id number]) [address] [place] [address] 23675 #### HA1C #### [facility] ([id number]) [address] [facility], [address] [place] [address] POTASSIUMon 05-28-2024 Potassium [Moles/Vol] 3.6 mmol/L Normal 3.5-5.0 [facility] Comment on above: Performed By: #### P INR, 39050-3, 35673-1, CBCA, 17656-3, CMP, 4548-4, 6873-4 #### [facility] ([id number]) [address] [place] [address] 42619 #### HA1C #### [facility] ([id number]) [address] [facility], [address] [place] [address] CBC AND AUTO DIFFon 05-27-20 24 ABSOLUTE BASOPHIL 0.0 X10E9/L Normal 0.0-0.2 [facility] Comment on above: Performed By: #### P INR, 78260-3, 11082-4, CBCA, 89572-0, CMP, 4548-4, 6873-4 #### [facility] ([id number]) [address] [place] [address] 45324 #### HA1C #### [facility] ([id number]) [address] [facility], [address] [place] [address] ABSOLUTE NEUTROPHIL 12.1 X10E9/L High 1.5-6.6 [facility] Comment on above: Performed By: #### P INR, 34991-2, 13612-4, CBCA, 05983-3, CMP, 4548-4, 6873-4 #### [facility] ([id number]) [address] [place] [address] 88230 #### HA1C #### [facility] ([id number]) [address] [facility], [address] [place] [address] Basophils/100 WBC (Bld) 0.3 % Normal [facility] Comment on above: Performed By: #### P INR, 08343-2, 26598-7, CBCA, 64093-3, CMP, 4548-4, 6873-4 #### [facility] ([id number]) [address] [place] [address] 73579 #### HA1C #### [facility] ([id number]) [address] [place] [address] Eosinophils (Bld) [#/Vol] 0.0 10*3/uL Normal 0.0-0.4 [facility] Comment on above: Performed By: #### P INR, 39510-8, 02875-6, CBCA, 44792-3, CMP, 4548-4, 6873-4 #### [facility] ([id number]) [address] [place] [address] 80033 #### HA1C #### [facility] ([id number]) [address], [address] [place] [address] Eosinophils/100 WBC (Bld) 0.2 % Normal [facility] Comment on above: Performed By: #### P INR, 69387-8, 44521-5, CBCA, 53655-1, CMP, 4548-4, 6873-4 #### [facility] ([id number]) [address] [place] [address] 58397 #### HA1C #### [facility] ([id number]) [address], [address] [place] [address] Erythrocyte distribution width (RBC) [Ratio] 16.2 % High 11.5-15.0 [facility] Comment on above: Performed By: #### P INR, 74360-5, 96635-7, CBCA, 70046-3, CMP, 4548-4, 6873-4 #### [facility] ([id number]) [address] [place] [address] 87856 #### HA1C #### [facility] ([id number]) [address], [address] [place] [address] Hematocrit (Bld) [Volume fraction] 39.5 % Normal 39-49 [facility] Comment on above: Performed By: #### P INR, 98872-3, 62440-0, CBCA, 51076-6, CMP, 4548-4, 6873-4 #### [facility] ([id number]) [address] [place] [address] 61628 #### HA1C #### [facility] ([id number]) [address] [facility], [address] [place] [address] Hemoglobin (Bld) [Mass/Vol] 13.2 g/dL Normal 13.0-17.0 [facility] Comment on above: Performed By: #### P INR, 74326-2, 57779-3, CBCA, 24311-3, CMP, 4548-4, 6873-4 #### [facility] ([id number]) [address] [place] [address] 32894 #### HA1C #### [facility] ([id number]) [address] [facility], [address] [place] [address] Lymphocytes (Bld) [#/Vol] 0.4 10*3/uL Low 1.0-3.5 [facility] Comment on above: Performed By: #### P INR, 00603-5, 68415-2, CBCA, 32640-5, CMP, 4548-4, 6873-4 #### [facility] ([id number]) [address] [place] [address] 98820 #### HA1C #### [facility] ([id number]) [address] [facility], [address] [place] [address] Lymphocytes/100 WBC (Bld) 3.2 % Normal [facility] Comment on above: Performed By: #### P INR, 05967-6, 27770-8, CBCA, 56587-0, CMP, 4548-4, 6873-4 #### [facility] ([id number]) [address] [place] [address] 72636 #### HA1C #### [facility] ([id number]) [address], [address] [place] [address] MCH (RBC) [Entitic mass] 27.5 pg Normal 27-34 [facility] Comment on above: Performed By: #### P INR, 15368-6, 71012-1, CBCA, 50761-6, CMP, 4548-4, 6873-4 #### [facility] ([id number]) [address] [place] [address] 71660 #### HA1C #### [facility] ([id number]) [address], [address] [place] [address] MCHC (RBC) [Mass/Vol] 33.4 g/dL Normal 32-36 [facility] Comment on above: Performed By: #### P INR, 80932-7, 40285-4, CBCA, 17828-3, CMP, 4548-4, 6873-4 #### [facility] ([id number]) [address] [place] [address] 17292 #### HA1C #### [facility] ([id number]) [address], [address] [place] [address] MCV (RBC) [Entitic vol] 82 fL Normal 80-100 [facility] Comment on above: Performed By: #### P INR, 37319-5, 79520-7, CBCA, 94996-8, CMP, 4548-4, 6873-4 #### [facility] ([id number]) [address] [place] [address] 00561 #### HA1C #### [facility] ([id number]) [address], [address] [place] [address] Monocytes (Bld) [#/Vol] 1.0 10*3/uL High 0-0.9 [facility] Comment on above: Performed By: #### P INR, 95113-1, 71901-0, CBCA, 70001-5, CMP, 4548-4, 6873-4 #### [facility] ([id number]) [address] [place] [address] 66919 #### HA1C #### [facility] ([id number]) [address], [address] [place] [address] Monocytes/100 WBC (Bld) 7.1 % Normal [facility] Comment on above: Performed By: #### P INR, 66749-6, 77080-1, CBCA, 66382-2, CMP, 4548-4, 6873-4 #### [facility] ([id number]) [address] [place] [address] 23922 #### HA1C #### [facility] ([id number]) [address] [place] [address] Neutrophils/100 WBC (Bld) 89.2 % Normal [facility] Comment on above: Performed By: #### P INR, 06539-7, 16838-2, CBCA, 02788-6, CMP, 4548-4, 6873-4 #### [facility] ([id number]) [address] [place] [address] 59034 #### HA1C #### [facility] ([id number]) [address] [place] [address] Platelet mean volume (Bld) [Entitic vol] 8.0 fL Normal 7-12 [facility] Comment on above: Performed By: #### P INR, 41400-5, 49301-0, CBCA, 25419-0, CMP, 4548-4, 6873-4 #### [facility] ([id number]) [address] [place] [address] 96647 #### HA1C #### [facility] ([id number]) [address], [address] [place] [address] Platelets (Bld) [#/Vol] 296 10*3/uL Normal 150-450 [facility] Comment on above: Performed By: #### P INR, 33320-3, 65849-4, CBCA, 94731-2, CMP, 4548-4, 6873-4 #### [facility] ([id number]) [address] [place] [address] #### HA1C #### [facility] ([id number]) [address], [address] [place] [address] RBC COUNT 4.79 X10E12/L Normal 4.10-5.70 [facility] Comment on above: Performed By: #### P INR, 89456-1, 95875-5, CBCA, 09352-6, CMP, 4548-4, 6873-4 #### [facility] ([id number]) [address] [place] [address] #### HA1C #### [facility] ([id number]) [address], [address] [place] [address] WBC (Bld) [#/Vol] 13.5 10*3/uL High 4.0-11.0 [facility] Comment on above: Performed By: #### P INR, 23728-6, 16474-0, CBCA, 66464-1, CMP, 4548-4, 6873-4 #### [facility] ([id number]) [address] [place] [address] #### HA1C #### [facility] ([id number]) [address], [address] [place] [address] COMPREHENSIVE METABOLIC PANE [place] 05-27-2024 Albumin [Mass/Vol] 4.6 g/dL Normal 3.2-5.3 [facility] Comment on above: Performed By: #### P INR, 38808-7, 50491-6, CBCA, 62219-9, CMP, 4548-4, 6873-4 #### [facility] ([id number]) [address] [place] [address] #### HA1C #### [facility] ([id number]) [address], [address] [place] [address] ALP [Catalytic activity/Vol] 112 U/L Normal 39-130 [facility] Comment on above: Performed By: #### P INR, 10165-9, 74035-9, CBCA, 97340-2, CMP, 4548-4, 6873-4 #### [facility] ([id number]) [address] [place] [address] #### HA1C #### [facility] ([id number]) [address] [facility], [address] [place] [address] ALT [Catalytic activity/Vol] 23 U/L Normal 0-40 [facility] Comment on above: Performed By: #### P INR, 60476-6, 73512-2, CBCA, 76420-1, CMP, 4548-4, 6873-4 #### [facility] ([id number]) [address] [place] [address] #### HA1C #### [facility] ([id number]) [address], [address] [place] [address] Anion gap [Moles/Vol] 13 mmol/L Normal 5-15 [facility] Comment on above: Performed By: #### P INR, 58607-1, 42286-3, CBCA, 73855-5, CMP, 4548-4, 6873-4 #### [facility] ([id number]) [address] [place] [address] 230[address] #### HA1C #### [facility] ([id number]) [address], [address] [place] [address] AST [Catalytic activity/Vol] 21 U/L Normal 0-41 [facility] Comment on above: Performed By: #### P INR, 58118-2, 49338-8, CBCA, 36104-4, CMP, 4548-4, 6873-4 #### [facility] ([id number]) [address] [place] [address] #### HA1C #### [facility] ([id number]) [address] [facility], [address] [place] [address] Bilirubin [Mass/Vol] 0.7 mg/dL Normal 0.3-1.2 [facility] Comment on above: Performed By: #### P INR, 10040-4, 90796-8, CBCA, 91178-3, CMP, 4548-4, 6873-4 #### [facility] ([id number]) [address] [place] [address] #### HA1C #### [facility] ([id number]) [address] [facility], [address] [place] [address] Calcium [Mass/Vol] 9.6 mg/dL Normal 8.5-10.5 [facility] Comment on above: Performed By: #### P INR, 78191-6, 38535-3, CBCA, 36166-4, CMP, 4548-4, 6873-4 #### [facility] ([id number]) [address] [place] [address] #### HA1C #### [facility] ([id number]) [address], [address] [place] [address] Chloride [Moles/Vol] 94 mmol/L Low 98-109 [facility] Comment on above: Performed By: #### P INR, 05765-1, 45236-0, CBCA, 91787-8, CMP, 4548-4, 6873-4 #### [facility] ([id number]) [address] [place] [address] 48750 #### HA1C #### [facility] ([id number]) [address], [address] [place] [address] CO2 [Moles/Vol] 21 mmol/L Low 22-32 [facility] Comment on above: Performed By: #### P INR, 44983-7, 31327-0, CBCA, 33475-9, CMP, 4548-4, 6873-4 #### [facility] ([id number]) [address] [place] [address] 17459 #### HA1C #### [facility] ([id number]) [address] [facility], [address] [place] [address] Creatinine [Mass/Vol] 2.75 mg/dL High 0.70-1.20 [facility] Comment on above: Result Comment: METH OD TRACEABLE TO IDMS STANDARD Performed By: #### P INR, 96151-9, 70934-9, CBCA, 57018-6, CMP, 4548-4, 6873-4 #### [facility] ([id number]) [address] [place] [address] 80744 #### HA1C #### [facility] ([id number]) [address], [address] [address] GFR/1.73 sq M.predicted among non-blacks MDRD (S/P/Bld) [Vol rate/Area] 24 mL/min/{1.73_m2} Low >59 [facility] Comment on above: Result Comment: Reported eGFR is based on the CKD-EPI 2020 equation that does not use a race coefficient. Performed By: #### P INR, 33769-4, 25839-0, CBCA, 75732-6, CMP, 4548-4, 6873-4 #### [facility] ([id number]) [address] [place] [address] 96738 #### HA1C #### [facility] ([id number]) [address], [address] [place] [address] Glucose [Mass/Vol] 223 mg/dL High 65-99 [facility] Comment on above: Performed By: #### P INR, 87501-2, 00039-7, CBCA, 10062-8, CMP, 4548-4, 6873-4 #### [facility] ([id number]) [address] [place] [address] 16544 #### HA1C #### [facility] ([id number]) [address], [address] [place] [address] Potassium [Moles/Vol] 4.9 mmol/L Normal 3.5-5.0 [facility] Comment on above: Performed By: #### P INR, 20888-9, 39998-7, CBCA, 98443-8, CMP, 4548-4, 6873-4 #### [facility] ([id number]) [address] [place] [address] 29811 #### HA1C #### [facility] ([id number]) [address] [place] [address] Protein [Mass/Vol] 8.2 g/dL High 6.0-8.0 [facility] Comment on above: Performed By: #### P INR, 51578-9, 86599-6, CBCA, 13825-3, CMP, 4548-4, 6873-4 #### [facility] ([id number]) [address] [place] [address] 16392 #### HA1C #### [facility] ([id number]) [address], [address] [place] [address] Sodium [Moles/Vol] 128 mmol/L Low 134-146 [facility] Comment on above: Performed By: #### P INR, 59376-6, 74996-0, CBCA, 43409-4, CMP, 4548-4, 6873-4 #### [facility] ([id number]) [address] [place] [address] 57814 #### HA1C #### [facility] ([id number]) [address] [facility], [address] [place] [address] Urea nitrogen [Mass/Vol] 106 mg/dL High 5-27 [facility] Comment on above: Performed By: #### P INR, 13336-2, 17130-3, CBCA, 54233-1, CMP, 4548-4, 6873-4 #### [facility] ([id number]) [address] [place] [address] 20061 #### HA1C #### [facility] ([id number]) [address] [facility], [address] [place] [address] Glucose Glucometer (BldC) [M ass/Vol]on 05-27-2024 Glucose [Mass/Vol] 170 mg/dL High 65-99 [facility] MAGNESIUMon 05-27-2024 Magnesium [Mass/Vol] 2.4 mg/dL Normal 1.8-2.6 [facility] Comment on above: Performed By: #### P INR, 09735-4, 66881-5, CBCA, 27067-5, CMP, 4548-4, 6873-4 #### [facility] ([id number]) [address] [place] [address] 55313 #### HA1C #### [facility] ([id number]) [address] [facility], [address] [place] [address] Troponin I.cardiac High sens itivity method [Mass/Vol]on 05-27-2024 1 HOUR TROP I, HIGH SENSITIVITY 11 ng/L Normal <21 [facility] Comment on above: Performed By: #### P INR, 98787-2, 38973-9, CBCA, 82573-5, CMP, 4548-4, 6873-4 #### [facility] ([id number]) [address] [place] [address] 89983 #### HA1C #### [facility] ([id number]) [address] [facility], [address] [place] [address] TROPONIN I, HIGH SENSITIVITY 10 ng/L Normal <21 [facility] Comment on above: Performed By: #### P INR, 64354-2, 98225-0, CBCA, 18288-1, CMP, 4548-4, 6873-4 #### [facility] ([id number]) [address] [place] [address] 86599 #### HA1C #### [facility] ([id number]) [address] [facility], [address] [place] [address] URN MACROSCOPIC NURon 2023 BILIRUBIN ALLYN Negative Normal NEG [facility] Comment on above: Performed By: #### P INR, 67605-3, 45548-6, CBCA, 48452-8, CMP, 4548-4, 6873-4 #### [facility] ([id number]) [address] [place] [address] 08837 #### HA1C #### [facility] ([id number]) [address] [facility], [address] [place] [address] BLOOD/HGB ALLYN Large Abnormal NEG [facility] Comment on above: Performed By: #### P INR, 88473-1, 89791-5, CBCA, 48616-6, CMP, 4548-4, 6873-4 #### [facility] ([id number]) [address] [place] [address] 76604 #### HA1C #### [facility] ([id number]) [address] [facility], [address] [place] [address] GLUCOSE ALLYN Negative Normal NEG [facility] Comment on above: Performed By: #### P INR, 15255-6, 48638-7, CBCA, 16272-2, CMP, 4548-4, 6873-4 #### [facility] ([id number]) [address] [place] [address] 03978 #### HA1C #### [facility] ([id number]) [address] [facility], [address] [place] [address] KETONES ALLYN Negative Normal NEG [facility] Comment on above: Performed By: #### P INR, 56131-4, 93235-4, CBCA, 48419-3, CMP, 4548-4, 6873-4 #### [facility] ([id number]) [address] [place] [address] 08402 #### HA1C #### [facility] ([id number]) [address] [place] [address], [address] [place] [address] LEUKOCYTE ESTERASE ALLYN Negative Normal NEG [facility] Comment on above: Performed By: #### P INR, 73015-1, 28375-4, CBCA, 08734-0, CMP, 4548-4, 6873-4 #### [facility] ([id number]) [address] [place] [address] 11912 #### HA1C #### [facility] ([id number]) [address] [place] [address], [address] [place] [address] NITRITE ALLYN Negative Normal NEG [facility] Comment on above: Performed By: #### P INR, 27099-7, 59154-1, CBCA, 27382-1, CMP, 4548-4, 6873-4 #### [facility] ([id number]) [address] [place] [address] 26690 #### HA1C #### [facility] ([id number]) [address] [facility], [address] [place] [address] PH ALLYN 5.5 Normal 5.0-8.5 [facility] Comment on above: Performed By: #### P INR, 67815-1, 93972-1, CBCA, 56343-3, CMP, 4548-4, 6873-4 #### [facility] ([id number]) [address] [place] [address] 97613 #### HA1C #### [facility] ([id number]) [address] [place] [address], [address] [place] [address] PROTEIN ALLYN 30 mg/dL Abnormal NEG [facility] Comment on above: Performed By: #### P INR, 14159-2, 42829-9, CBCA, 28986-6, CMP, 4548-4, 6873-4 #### [facility] ([id number]) [address] [place] [address] 24060 #### HA1C #### [facility] ([id number]) [address] [place] [address], [address] [place] [address] SPECIFIC GRAVITY ALLYN 1.025 Normal 1.003-1.035 [facility] Comment on above: Performed By: #### P INR, 35392-0, 80226-9, CBCA, 33824-1, CMP, 4548-4, 6873-4 #### [facility] ([id number]) [address] [place] [address] 94537 #### HA1C #### [facility] ([id number]) [address] [facility], [address] [place] [address] UROBILINOGEN ALLYN 0.2 eu/dL Normal <1.1 [facility] Comment on above: Performed By: #### P INR, 37874-8, 02253-8, CBCA, 29485-3, CMP, 4548-4, 6873-4 #### [facility] ([id number]) [address] [place] [address] 13627 #### HA1C #### [facility] ([id number]) [address] [place] [address] BASIC METABOLIC PANLon 05-12 Anion gap [Moles/Vol] 8 mmol/L Normal 5-15 [facility] Comment on above: Performed By: #### P INR, 06068-9, 48875-0, CBCA, 48729-4, CMP, 4548-4, 6873-4 #### [facility] ([id number]) [address] [place] [address] 10693 #### HA1C #### [facility] ([id number]) [address], [address] [place] [address] Calcium [Mass/Vol] 8.9 mg/dL Normal 8.5-10.5 [facility] Comment on above: Performed By: #### P INR, 46282-5, 94260-0, CBCA, 52391-1, CMP, 4548-4, 6873-4 #### [facility] ([id number]) [address] [place] [address] 56914 #### HA1C #### [facility] ([id number]) [address] [place] [address] Chloride [Moles/Vol] 102 mmol/L Normal 98-109 [facility] Comment on above: Performed By: #### P INR, 97119-6, 97421-3, CBCA, 25563-1, CMP, 4548-4, 6873-4 #### [facility] ([id number]) [address] [place] [address] 25982 #### HA1C #### [facility] ([id number]) [address], [address] [place] [address] CO2 [Moles/Vol] 26 mmol/L Normal 22-32 [facility] Comment on above: Performed By: #### P INR, 07124-0, 72898-2, CBCA, 58577-2, CMP, 4548-4, 6873-4 #### [facility] ([id number]) [address] [place] [address] 47838 #### HA1C #### [facility] ([id number]) [address] [facility] [facility] [address] [place] [address] Creatinine [Mass/Vol] 0.68 mg/dL Low 0.70-1.20 [facility] Comment on above: Result Comment: METH OD TRACEABLE TO IDMS STANDARD Performed By: #### P INR, 95739-5, 57495-1, CBCA, 62887-3, CMP, 4548-4, 6873-4 #### [facility] ([id number]) [address] [place] [address] 44772 #### HA1C #### [facility] ([id number]) [address] [facility], [address] [place] [address] eGFR (CKD-EPI) NON-RACE DEPENDENT >90 Normal >59 [facility] Comment on above: Result Comment: Reported eGFR is based on the CKD-EPI 2021 equation that does not use a race coefficient. Performed By: #### P INR, 45211-8, 23462-1, CBCA, 90655-0, CMP, 4548-4, 6873-4 #### [facility] ([id number]) [address] [place] [address] 92404 #### HA1C #### [facility] ([id number]) [address] [facility], [address] [place] [address] Glucose [Mass/Vol] 143 mg/dL High 65-99 [facility] Comment on above: Performed By: #### P INR, 42309-7, 49126-5, CBCA, 16169-6, CMP, 4548-4, 6873-4 #### [facility] ([id number]) [address] [place] [address] 73442 #### HA1C #### [facility] ([id number]) [address] [place] [address] Potassium [Moles/Vol] 3.7 mmol/L Normal 3.5-5.0 [facility] Comment on above: Performed By: #### P INR, 40034-9, 09571-8, CBCA, 39830-3, CMP, 4548-4, 6873-4 #### [facility] ([id number]) [address] [place] [address] 14317 #### HA1C #### [facility] ([id number]) [address] [place] [address] Sodium [Moles/Vol] 136 mmol/L Normal 134-146 [facility] Comment on above: Performed By: #### P INR, 69947-3, 27367-5, CBCA, 15284-4, CMP, 4548-4, 6873-4 #### [facility] ([id number]) [address] [place] [address] 22607 #### HA1C #### [facility] ([id number]) [address], [address] [place] [address] Urea nitrogen [Mass/Vol] 22 mg/dL Normal 5-27 [facility] Comment on above: Performed By: #### P INR, 44049-9, 75852-2, CBCA, 88724-0, CMP, 4548-4, 6873-4 #### [facility] ([id number]) [address] [place] [address] 68887 #### HA1C #### [facility] ([id number]) [address], [address] [place] [address] CBC AND AUTO DIFFon 05-12-20 24 ABSOLUTE BASOPHIL 0.1 X10E9/L Normal 0.0-0.2 [facility] Comment on above: Performed By: #### P INR, 81089-7, 97674-6, CBCA, 63211-2, CMP, 4548-4, 6873-4 #### [facility] ([id number]) [address] [place] [address] 99143 #### HA1C #### [facility] ([id number]) [address] [facility], [address] [place] [address] ABSOLUTE NEUTROPHIL 2.2 X10E9/L Normal 1.5-6.6 [facility] Comment on above: Performed By: #### P INR, 30149-0, 52091-7, CBCA, 27559-6, CMP, 4548-4, 6873-4 #### [facility] ([id number]) [address] [place] [address] 62222 #### HA1C #### [facility] ([id number]) [address], [address] [place] [address] Basophils/100 WBC (Bld) 1.7 % Normal [facility] Comment on above: Performed By: #### P INR, 31284-5, 97672-1, CBCA, 57319-6, CMP, 4548-4, 6873-4 #### [facility] ([id number]) [address] [place] [address] 55305 #### HA1C #### [facility] ([id number]) [address], [address] [place] [address] Eosinophils (Bld) [#/Vol] 0.1 10*3/uL Normal 0.0-0.4 [facility] Comment on above: Performed By: #### P INR, 15784-3, 06493-3, CBCA, 30046-6, CMP, 4548-4, 6873-4 #### [facility] ([id number]) [address] [place] [address] 58265 #### HA1C #### [facility] ([id number]) [address], [address] [place] [address] Eosinophils/100 WBC (Bld) 3.2 % Normal [facility] Comment on above: Performed By: #### P INR, 29391-8, 17956-8, CBCA, 88480-5, CMP, 4548-4, 6873-4 #### [facility] ([id number]) [address] [place] [address] 31453 #### HA1C #### [facility] ([id number]) [address] [facility], [address] [place] [address] Erythrocyte distribution width (RBC) [Ratio] 15.2 % High 11.5-15.0 [facility] Comment on above: Performed By: #### P INR, 23118-6, 73719-3, CBCA, 26425-2, CMP, 4548-4, 6873-4 #### [facility] ([id number]) [address] [place] [address] 44295 #### HA1C #### [facility] ([id number]) [address], [address] [place] [address] Hematocrit (Bld) [Volume fraction] 33.1 % Low 39-49 [facility] Comment on above: Performed By: #### P INR, 40532-4, 66755-8, CBCA, 82989-5, CMP, 4548-4, 6873-4 #### [facility] ([id number]) [address] [place] [address] 63334 #### HA1C #### [facility] ([id number]) [address], [address] [place] [address] Hemoglobin (Bld) [Mass/Vol] 11.3 g/dL Low 13.0-17.0 [facility] Comment on above: Performed By: #### P INR, 18700-5, 84380-5, CBCA, 11699-1, CMP, 4548-4, 6873-4 #### [facility] ([id number]) [address] [place] [address] 90663 #### HA1C #### [facility] ([id number]) [address], [address] [place] [address] Lymphocytes (Bld) [#/Vol] 1.5 10*3/uL Normal 1.0-3.5 [facility] Comment on above: Performed By: #### P INR, 75015-0, 75153-8, CBCA, 05545-5, CMP, 4548-4, 6873-4 #### [facility] ([id number]) [address] [place] [address] 15482 #### HA1C #### [facility] ([id number]) [address], [address] [place] [address] Lymphocytes/100 WBC (Bld) 35.4 % Normal [facility] Comment on above: Performed By: #### P INR, 60110-1, 11262-0, CBCA, 22806-5, CMP, 4548-4, 6873-4 #### [facility] ([id number]) [address] [place] [address] 35388 #### HA1C #### [facility] ([id number]) [address], [address] [place] [address] MCH (RBC) [Entitic mass] 28.9 pg Normal 27-34 [facility] Comment on above: Performed By: #### P INR, 75127-9, 58494-5, CBCA, 96046-6, CMP, 4548-4, 6873-4 #### [facility] ([id number]) [address] [place] [address] 12154 #### HA1C #### [facility] ([id number]) [address], [address] [place] [address] MCHC (RBC) [Mass/Vol] 34.2 g/dL Normal 32-36 [facility] Comment on above: Performed By: #### P INR, 56152-1, 11255-3, CBCA, 94933-3, CMP, 4548-4, 6873-4 #### [facility] ([id number]) [address] [place] [address] 64829 #### HA1C #### [facility] ([id number]) [address] [facility], [address] [place] [address] MCV (RBC) [Entitic vol] 84 fL Normal 80-100 [facility] Comment on above: Performed By: #### P INR, 51500-6, 19982-1, CBCA, 11152-1, CMP, 4548-4, 6873-4 #### [facility] ([id number]) [address] [place] [address] 52575 #### HA1C #### [facility] ([id number]) [address], [address] [place] [address] Monocytes (Bld) [#/Vol] 0.3 10*3/uL Normal 0-0.9 [facility] Comment on above: Performed By: #### P INR, 80679-7, 37547-0, CBCA, 51328-1, CMP, 4548-4, 6873-4 #### [facility] ([id number]) [address] [place] [address] 35480 #### HA1C #### [facility] ([id number]) [address], [address] [place] [address] Monocytes/100 WBC (Bld) 7.8 % Normal [facility] Comment on above: Performed By: #### P INR, 39516-9, 56283-5, CBCA, 90360-7, CMP, 4548-4, 6873-4 #### [facility] ([id number]) [address] [place] [address] 03374 #### HA1C #### [facility] ([id number]) [address] [facility], [address] [place] [address] Neutrophils/100 WBC (Bld) 51.9 % Normal [facility] Comment on above: Performed By: #### P INR, 02608-6, 51309-1, CBCA, 13688-3, CMP, 4548-4, 6873-4 #### [facility] ([id number]) [address] [place] [address] 70192 #### HA1C #### [facility] ([id number]) [address] [facility] [facility] [address], [address] [place] [address] Platelet mean volume (Bld) [Entitic vol] 7.1 fL Normal 7-12 [facility] Comment on above: Performed By: #### P INR, 77853-9, 05904-8, CBCA, 35219-3, CMP, 4548-4, 6873-4 #### [facility] ([id number]) [address] [place] [address] #### HA1C #### [facility] ([id number]) [address], [address] [place] [address] Platelets (Bld) [#/Vol] 310 10*3/uL Normal 150-450 [facility] Comment on above: Performed By: #### P INR, 81334-8, 13674-3, CBCA, 89733-8, CMP, 4548-4, 6873-4 #### [facility] ([id number]) [address] [place] [address] #### HA1C #### [facility] ([id number]) [address], [address] [place] [address] RBC COUNT 3.93 X10E12/L Low 4.10-5.70 [facility] Comment on above: Performed By: #### P INR, 80521-8, 28967-8, CBCA, 14321-3, CMP, 4548-4, 6873-4 #### [facility] ([id number]) [address] [place] [address] #### HA1C #### [facility] ([id number]) [address], [address] [place] [address] WBC (Bld) [#/Vol] 4.3 10*3/uL Normal 4.0-11.0 [facility] Comment on above: Performed By: #### P INR, 41397-7, 11463-5, CBCA, 78436-4, CMP, 4548-4, 6873-4 #### [facility] ([id number]) [address] [place] [address] #### HA1C #### [facility] ([id number]) [address], [address] [place] [address] CT [address]RAIN [address] CONTon [address] BRAIN WO [...] Yuan MD on 05/12/2024 3:05 AM Normal [facility] PROTIME AND INRon 05-12-2024 INR Coag (PPP) [Relative time] 1.2 {INR} High 0.8-1.1 [facility] Comment on above: Performed By: #### P INR, 68231-8, 09780-5, CBCA, 77254-0, CMP, 4548-4, 6873-4 #### [facility] ([id number]) [address] [place] [address] #### HA1C #### [facility] ([id number]) [address] [facility], [address] [place] [address] PT Coag (PPP) [Time] 14.0 s High 9.8-13.2 [facility] Comment on above: Result Comment: NEW REFERENCE RANGE Performed By: #### P INR, 98258-6, 87270-3, CBCA, 05930-4, CMP, 4548-4, 6873-4 #### [facility] ([id number]) [address] [place] [address] #### HA1C #### [facility] ([id number]) [address], [address] [place] [address] aPTT Coag (PPP) [Time]on aPTT Coag (Bld) [Time] 30 s Normal 26-37 [facility] Comment on above: Result Comment: NEW REFERENCE RANGE Performed By: #### P INR, 39778-5, 48561-0, CBCA, 14642-8, CMP, 4548-4, 6873-4 #### [facility] ([id number]) [address] [place] [address], [place] [address] #### HA1C #### [facility] ([id number]) [address], [address] [place] [address] CBC AND AUTO DIFFon 04-21-20 24 ABSOLUTE BASOPHIL 0.0 X10E9/L Normal 0.0-0.[address] [facility] Comment on above: Performed By: #### C BCA, CMP ####[facility] ([id number])[address], [address], [place] [address] ABSOLUTE NEUTROPHIL 2.8 X10E9/L Normal 1.5-6.6 [facility] Comment on above: Performed By: #### C BCA, CMP ####[facility] ([id number])[address], [address] [place] [address] Basophils/100 WBC (Bld) 0.7 % Normal [facility] Comment on above: Performed By: #### C BCA, CMP ####[facility] ([id number])[address], [address] [place] [address] [address] Eosinophils (Bld) [#/Vol] 0.2 10*3/uL Normal 0.0-0.4 [facility] Comment on above: Performed By: #### C BCA, CMP ####[facility] ([id number])[address], [address] [place] [address] Eosinophils/100 WBC (Bld) 3.3 % Normal [facility] Comment on above: Performed By: #### C BCA, CMP ####[facility] ([id number])[address], [address] [place] [address] Erythrocyte distribution width (RBC) [Ratio] 16.2 % High 11.5-15.0 [facility] Comment on above: Performed By: #### C BCA, CMP ####[facility] ([id number])[address], [address], [place] [address] Hematocrit (Bld) [Volume fraction] 28.7 % Low 39-49 [facility] Comment on above: Performed By: #### C BCA, CMP ####[facility] ([id number])[address], [address], [place] [address] Hemoglobin (Bld) [Mass/Vol] 10.2 g/dL Low 13.0-17.0 [facility] Comment on above: Performed By: #### C ZACHARY, CMP ####[facility] ([id number])[address], [address] [place] [address] Lymphocytes (Bld) [#/Vol] 1.3 10*3/uL Normal 1.0-3.5 [facility] Comment on above: Performed By: #### C ZACHARY, CMP ####[facility] ([id number])[address] [place] [address] Lymphocytes/100 WBC (Bld) 28.0 % Normal [facility] Comment on above: Performed By: #### C ZACHARY, CMP ####[facility] ([id number])[address], [address] [address] MCH (RBC) [Entitic mass] 31.7 pg Normal 27-34 [facility] Comment on above: Performed By: #### C BCA, CMP ####[facility] ([id number])[address], [address] [address] MCHC (RBC) [Mass/Vol] 35.6 g/dL Normal 32-36 [facility] Comment on above: Performed By: #### C BCA, CMP ####[facility] ([id number])[address], [address], [place] [address] MCV (RBC) [Entitic vol] 89 fL Normal 80-100 [facility] Comment on above: Performed By: #### C BCA, CMP ####[facility] ([id number])[address], [address], [place] [address] Monocytes (Bld) [#/Vol] 0.5 10*3/uL Normal 0-0.9 [facility] Comment on above: Performed By: #### C BCA, CMP ####[facility] ([id number])[address], [address], [place] [address] Monocytes/100 WBC (Bld) 9.6 % Normal [facility] Comment on above: Performed By: #### C BCA, CMP ####[facility] ([id number])[address], [address], [place] [address] Neutrophils/100 WBC (Bld) 58.4 % Normal [facility] Comment on above: Performed By: #### C BCA, CMP ####[facility] ([id number])[address], [place] [address] Platelet mean volume (Bld) [Entitic vol] 7.3 fL Normal 7-12 [facility] Comment on above: Performed By: #### C BCA, CMP ####[facility] ([id number])[address], [place] [address] Platelets (Bld) [#/Vol] 249 10*3/uL Normal 150-450 [facility] Comment on above: Performed By: #### C BCA, CMP ####[facility] ([id number])[address], [address], [place] [address] RBC COUNT 3.23 X10E12/L Low 4.10-5.70 [facility] Comment on above: Performed By: #### C BCA, CMP ####[facility] ([id number])[address], [address], [place] [address] WBC (Bld) [#/Vol] 4.8 10*3/uL Normal 4.0-11.[address] [facility] Comment on above: Performed By: #### C BCA, CMP ####[facility] ([id number])[address], [place] [address] COMPREHENSIVE METABOLIC PANE Deolnte 04-21-2024 Albumin [Mass/Vol] 3.6 g/dL Normal 3.2-5.[address] [facility] Comment on above: Performed By: #### C BCA, CMP ####[facility] ([id number])[address] [place] [address] ALP [Catalytic activity/Vol] 78 U/L Normal 39-130 [facility] Comment on above: Performed By: #### C BCA, CMP ####[facility] ([id number])[address] [address] [place] [address] ALT [Catalytic activity/Vol] 27 U/L Normal 0-40 [facility] Comment on above: Performed By: #### C BCA, CMP ####[facility] ([id number])[address], [place] [address] Anion gap [Moles/Vol] 9 mmol/L Normal 5-15 [facility] Comment on above: Performed By: #### C BCA, CMP ####[facility] ([id number])[address] [address] [place] [address] AST [Catalytic activity/Vol] 13 U/L Normal 0-41 [facility] Comment on above: Performed By: #### C BCA, CMP ####[facility] ([id number])[address] [address] [place] [address] Bilirubin [Mass/Vol] 0.4 mg/dL Normal 0.3-1.2 [facility] Comment on above: Performed By: #### C BCA, CMP ####[facility] ([id number])[address] [address] [address] Calcium [Mass/Vol] 8.8 mg/dL Normal 8.5-10.[address] [facility] Comment on above: Performed By: #### C BCA, CMP ####[facility] ([id number])[address] [address] [address] Chloride [Moles/Vol] 100 mmol/L Normal 98-109 [facility] Comment on above: Performed By: #### C BCA, CMP ####[facility] ([id number])[address] [address] [place] [address] CO2 [Moles/Vol] 28 mmol/L Normal 22-32 [facility] Comment on above: Performed By: #### C BCA, CMP ####[facility] ([id number])[address] [address], [place] [address] Creatinine [Mass/Vol] 0.70 mg/dL Normal 0.60-1.30 [facility] Comment on above: Result Comment: METH OD TRACEABLE TO IDMS STANDARD Performed By: #### C BCA, CMP ####[facility] ([id number])[address] [address] [address] eGFR (CKD-EPI) NON-RACE DEPENDENT >90 Normal >59 [facility] Comment on above: Result Comment: Reported eGFR is based on the CKD-EPI 2020 equation that does not use a race coefficient. Performed By: #### C BCA, CMP ####[facility] ([id number])[address] [address] [address] Glucose [Mass/Vol] 159 mg/dL High 65-[address] [facility] Comment on above: Performed By: #### C BCA, CMP ####[facility] ([id number])[address] [address], [place] [address] Potassium [Moles/Vol] 4.2 mmol/L Normal 3.5-5.0 [facility] Comment on above: Performed By: #### C BCA, CMP ####[facility] ([id number])[address], [place] [address] Protein [Mass/Vol] 5.6 g/dL Low 6.0-8.[address] [facility] Comment on above: Performed By: #### C BCA, CMP ####[facility] ([id number])[address], [address], [place] [address] Sodium [Moles/Vol] 137 mmol/L Normal 134-[address] [facility] Comment on above: Performed By: #### C BCA, CMP ####[facility] ([id number])[address], [address] [place] [address] Urea nitrogen [Mass/Vol] 17 mg/dL Normal 5-27 [facility] Comment on above: Performed By: #### C BCA, CMP ####[facility] ([id number])[address], [address] [place] [address] Glucose Glucometer (BldC) [M ass/Vol]on 04-21-2024 Glucose [Mass/Vol] 234 mg/dL High 65-[address] [facility] Glucose [Mass/Vol] 143 mg/dL High 65-[address] [facility] CBC AND AUTO DIFFon 04-20-20 ABSOLUTE BASOPHIL 0.1 X10E9/L Normal 0.0-0.[address] [facility] Comment on above: Performed By: #### C AZCHARY, CMP, 70098-1 #### [facility] ([id number]) [address], [address] [place] [address] ABSOLUTE NEUTROPHIL 2.9 X10E9/L Normal 1.5-6.6 [facility] Comment on above: Performed By: #### C ZACHARY, CMP, 32388-1 #### [facility] ([id number]) [address], [address] [place] [address] Basophils/100 WBC (Bld) 1.1 % Normal [facility] Comment on above: Performed By: #### C ZACHARY, CMP, 41798-8 #### [facility] ([id number]) [address], [address] [place] [address] Eosinophils (Bld) [#/Vol] 0.1 10*3/uL Normal 0.0-0.4 [facility] Comment on above: Performed By: #### C ZACHARY, CMP, 98618-3 #### [facility] ([id number]) [address], [facility] [address] [place] [address] Eosinophils/100 WBC (Bld) 2.7 % Normal [facility] Comment on above: Performed By: #### Thais SHARMA, CMP, 19719-1 #### [facility] ([id number]) [address] [place] [address] Erythrocyte distribution width (RBC) [Ratio] 15.8 % High 11.5-15.0 [facility] Comment on above: Performed By: #### C ZACHARY, CMP, 46964-5 #### [facility] ([id number]) [address] [address] [place] [address] Hematocrit (Bld) [Volume fraction] 30.3 % Low 39-49 [facility] Comment on above: Performed By: #### C ZACHARY, CMP, 95550-4 #### [facility] ([id number]) [address] [place] [address] Hemoglobin (Bld) [Mass/Vol] 10.5 g/dL Low 13.0-17.0 [facility] Comment on above: Performed By: #### C ZACHARY, CMP, 75825-2 #### [facility] ([id number]) [address] [place] [address] Lymphocytes (Bld) [#/Vol] 1.2 10*3/uL Normal 1.0-3.5 [facility] Comment on above: Performed By: #### C ZACHARY CMP, 00542-2 #### [facility] ([id number]) [address], [address] [place] [address] Lymphocytes/100 WBC (Bld) 25.4 % Normal [facility] Comment on above: Performed By: #### C ZACHARY, CMP, 30833-2 #### [facility] ([id number]) [address], [address] [place] [address] MCH (RBC) [Entitic mass] 30.5 pg Normal 27-34 [facility] Comment on above: Performed By: #### Thais SHARMA, CMP, 72474-3 #### [facility] ([id number]) [address], [address] [place] [address] MCHC (RBC) [Mass/Vol] 34.5 g/dL Normal 32-36 [facility] Comment on above: Performed By: #### Thais SHARMA CMP, 93245-9 #### [facility] ([id number]) [address], [address] [place] [address] MCV (RBC) [Entitic vol] 88 fL Normal 80-100 [facility] Comment on above: Performed By: #### Thais SHARMA, CMP, 19651-3 #### [facility] ([id number]) [address], [address] [place] [address] Monocytes (Bld) [#/Vol] 0.4 10*3/uL Normal 0-0.9 [facility] Comment on above: Performed By: #### Thais BCA, CMP, 14648-9 #### [facility] ([id number]) [address], [address] [place] [address] Monocytes/100 WBC (Bld) 9.3 % Normal [facility] Comment on above: Performed By: #### C BCA, CMP, 63911-3 #### [facility] ([id number]) [address], [address] [place] [address] Neutrophils/100 WBC (Bld) 61.5 % Normal [facility] Comment on above: Performed By: #### C BCA, CMP, 20706-7 #### [facility] ([id number]) [address] [place] [address] Platelet mean volume (Bld) [Entitic vol] 7.1 fL Normal 7-12 [facility] Comment on above: Performed By: #### C BCA, CMP, 38132-1 #### [facility] ([id number]) [address] [place] [address] Platelets (Bld) [#/Vol] 291 10*3/uL Normal 150-450 [facility] Comment on above: Performed By: #### C BCA, CMP, 60950-2 #### [facility] ([id number]) [address] [place] [address] RBC COUNT 3.43 X10E12/L Low 4.10-5.70 [facility] Comment on above: Performed By: #### C BCA, CMP, 62398-9 #### [facility] ([id number]) [address] [place] [address] WBC (Bld) [#/Vol] 4.7 10*3/uL Normal 4.0-11.[address] [facility] Comment on above: Performed By: #### C BCA, CMP, 95701-3 #### [facility] ([id number]) [address], [address] [place] [address] COMPREHENSIVE METABOLIC PANE [place]onte 04-20-2024 Albumin [Mass/Vol] 3.9 g/dL Normal 3.2-5.[address] [facility] Comment on above: Performed By: #### C BCA, CMP, 20264-3 #### [facility] ([id number]) [address], [address] [place] [address] ALP [Catalytic activity/Vol] 94 U/L Normal 39-130 [facility] Comment on above: Performed By: #### C BCA, CMP, 96306-7 #### [facility] ([id number]) [address], [address] [place] [address] ALT [Catalytic activity/Vol] 41 U/L High 0-40 [facility] Comment on above: Performed By: #### C BCA, CMP, 51412-7 #### [facility] ([id number]) [address], [address] [place] [address] Anion gap [Moles/Vol] 9 mmol/L Normal 5-15 [facility] Comment on above: Performed By: #### C BCA, CMP, 24682-6 #### [facility] ([id number]) [address], [address] [place] [address] AST [Catalytic activity/Vol] 22 U/L Normal 0-41 [facility] Comment on above: Performed By: #### C BCA, CMP, 81190-5 #### [facility] ([id number]) [address], [address] [place] [address] Bilirubin [Mass/Vol] 0.6 mg/dL Normal 0.3-1.2 [facility] Comment on above: Performed By: #### C BCA, CMP, 70099-5 #### [facility] ([id number]) [address] [place] [address] Calcium [Mass/Vol] 9.1 mg/dL Normal 8.5-10.[address] [facility] Comment on above: Performed By: #### C BCA, CMP, 06410-9 #### [facility] ([id number]) [address], [address] [place] [address] Chloride [Moles/Vol] 98 mmol/L Normal 98-109 [facility] Comment on above: Performed By: #### C BCA, CMP, 34156-1 #### [facility] ([id number]) [address], [address] [place] [address] CO2 [Moles/Vol] 30 mmol/L Normal 22-32 [facility] Comment on above: Performed By: #### C BCA, CMP, 57606-5 #### [facility] ([id number]) [address], [address] [place] [address] Creatinine [Mass/Vol] 0.69 mg/dL Normal 0.60-1.30 [facility] Comment on above: Result Comment: METH OD TRACEABLE TO IDMS STANDARD Performed By: #### C BCA, CMP, 57231-5 #### [facility] ([id number]) [address] [place] [address] eGFR (CKD-EPI) NON-RACE DEPENDENT >90 Normal >59 [facility] Comment on above: Result Comment: Reported eGFR is based on the CKD-EPI 2020 equation that does not use a race coefficient. Performed By: #### C BCA, CMP, 03064-2 #### [facility] ([id number]) [address], [address] [place] [address] Glucose [Mass/Vol] 204 mg/dL High 65-[address] [facility] Comment on above: Performed By: #### C BCA, CMP, 24965-0 #### [facility] ([id number]) [address], [address] [place] [address] Potassium [Moles/Vol] 4.3 mmol/L Normal 3.5-5.0 [facility] Comment on above: Performed By: #### C BCA, CMP, 79952-7 #### [facility] ([id number]) [address], [address] [place] [address] Protein [Mass/Vol] 6.2 g/dL Normal 6.0-8.[address] [facility] Comment on above: Performed By: #### C BCA, CMP, 23369-1 #### [facility] ([id number]) [address], [address] [place] [address] Sodium [Moles/Vol] 137 mmol/L Normal 134-[address] [facility] Comment on above: Performed By: #### C BCA, CMP, 96889-3 #### [facility] ([id number]) [address], [address] [place] [address] Urea nitrogen [Mass/Vol] 11 mg/dL Normal 5-27 [facility] Comment on above: Performed By: #### C ZACHARY, CMP, 69583-0 #### [facility] ([id number]) [address] [place] [address] Glucose Glucometer (BldC) [M ass/Vol]on 04-20-2024 Glucose [Mass/Vol] 287 mg/dL High 65-[address] [facility] Glucose [Mass/Vol] 263 mg/dL High 65-[address] [facility] Glucose [Mass/Vol] 231 mg/dL High 65-[address] [facility] Glucose [Mass/Vol] 176 mg/dL High 65-[address] [facility] CBC AND AUTO DIFFon 04-19-20 ABSOLUTE BASOPHIL 0.0 X10E9/L Normal 0.0-0.[address] [facility] Comment on above: Performed By: #### C BCA, CMP, 03009-7 #### [facility] ([id number]) [address] [place] [address] ABSOLUTE NEUTROPHIL 2.1 X10E9/L Normal 1.5-6.6 [facility] Comment on above: Performed By: #### C BCA, CMP, 68096-1 #### [facility] ([id number]) [address], [address] [place] [address] Basophils/100 WBC (Bld) 1.2 % Normal [facility] Comment on above: Performed By: #### C BCA, CMP, 27206-3 #### [facility] ([id number]) [address] [place] [address] Eosinophils (Bld) [#/Vol] 0.1 10*3/uL Normal 0.0-0.4 [facility] Comment on above: Performed By: #### C ZACHARY, CMP, 80704-7 #### [facility] ([id number]) [address] [place] [address] Eosinophils/100 WBC (Bld) 3.6 % Normal [facility] Comment on above: Performed By: #### Thais SHARMA, CMP, 31863-2 #### [facility] ([id number]) [address] [place] [address] Erythrocyte distribution width (RBC) [Ratio] 15.5 % High 11.5-15.0 [facility] Comment on above: Performed By: #### Thais SHARMA, CMP, 96541-1 #### [facility] ([id number]) [address] [place] [address] Hematocrit (Bld) [Volume fraction] 29.4 % Low 39-49 [facility] Comment on above: Performed By: #### C ZACHARY, CMP, 99844-2 #### [facility] ([id number]) [address] [place] [address] Hemoglobin (Bld) [Mass/Vol] 10.1 g/dL Low 13.0-17.0 [facility] Comment on above: Performed By: #### C BCA, CMP, 10938-6 #### [facility] ([id number]) [address] [place] [address] Lymphocytes (Bld) [#/Vol] 1.0 10*3/uL Normal 1.0-3.5 [facility] Comment on above: Performed By: #### C ZACHARY, CMP, 98987-1 #### [facility] ([id number]) [address] [place] [address] Lymphocytes/100 WBC (Bld) 28.5 % Normal [facility] Comment on above: Performed By: #### C ZACHARY, CMP, 53981-7 #### [facility] ([id number]) [address] [place] [address] MCH (RBC) [Entitic mass] 30.8 pg Normal 27-34 [facility] Comment on above: Performed By: #### Thais SHARMA, CMP, 43778-6 #### [facility] ([id number]) [address] [place] [address] MCHC (RBC) [Mass/Vol] 34.4 g/dL Normal 32-36 [facility] Comment on above: Performed By: #### Thais SHARMA, CMP, 89344-1 #### [facility] ([id number]) [address] [place] [address] MCV (RBC) [Entitic vol] 89 fL Normal 80-100 [facility] Comment on above: Performed By: #### Thais SHARMA, CMP, 57778-7 #### [facility] ([id number]) [address] [place] [address] Monocytes (Bld) [#/Vol] 0.3 10*3/uL Normal 0-0.9 [facility] Comment on above: Performed By: #### Thais SHARMA, CMP, 25070-9 #### [facility] ([id number]) [address] [place] [address] Monocytes/100 WBC (Bld) 8.3 % Normal [facility] Comment on above: Performed By: #### C BCA, CMP, 09392-2 #### [facility] ([id number]) [address], [facility] [address] [place] [address] Neutrophils/100 WBC (Bld) 58.4 % Normal [facility] Comment on above: Performed By: #### C BCA, CMP, 84825-5 #### [facility] ([id number]) [address] [facility] [address] [place] [address] Platelet mean volume (Bld) [Entitic vol] 7.1 fL Normal 7-12 [facility] Comment on above: Performed By: #### C BCA, CMP, 99474-6 #### [facility] ([id number]) [address] [address] [place] [address] Platelets (Bld) [#/Vol] 264 10*3/uL Normal 150-450 [facility] Comment on above: Performed By: #### C BCA, CMP, 13199-0 #### [facility] ([id number]) [address], [facility] [address] [place] [address] RBC COUNT 3.29 X10E12/L Low 4.10-5.70 [facility] Comment on above: Performed By: #### C BCA, CMP, 60501-3 #### [facility] ([id number]) [address], [facility] [address] [place] [address] WBC (Bld) [#/Vol] 3.6 10*3/uL Low 4.0-11.[address] [facility] Comment on above: Performed By: #### C BCA, CMP, 39491-0 #### [facility] ([id number]) [address], [address] [place] [address] COMPREHENSIVE METABOLIC PANE [place] 04-19-2024 Albumin [Mass/Vol] 3.8 g/dL Normal 3.2-5.[address] [facility] Comment on above: Performed By: #### C BCA, CMP, 78181-3 #### [facility] ([id number]) [address] [place] [address] ALP [Catalytic activity/Vol] 91 U/L Normal 39-130 [facility] Comment on above: Performed By: #### C BCA, CMP, 34016-0 #### [facility] ([id number]) [address], [address] [place] [address] ALT [Catalytic activity/Vol] 40 U/L Normal 0-40 [facility] Comment on above: Performed By: #### C BCA, CMP, 17156-2 #### [facility] ([id number]) [address] [place] [address] Anion gap [Moles/Vol] 10 mmol/L Normal 5-15 [facility] Comment on above: Performed By: #### C BCA, CMP, 39916-8 #### [facility] ([id number]) [address] [place] [address] AST [Catalytic activity/Vol] 24 U/L Normal 0-41 [facility] Comment on above: Performed By: #### C BCA, CMP, 58251-7 #### [facility] ([id number]) [address], [address] [place] [address] Bilirubin [Mass/Vol] 0.7 mg/dL Normal 0.3-1.2 [facility] Comment on above: Performed By: #### C BCA, CMP, 33628-2 #### [facility] ([id number]) [address] [place] [address] Calcium [Mass/Vol] 9.0 mg/dL Normal 8.5-10.[address] [facility] Comment on above: Performed By: #### C BCA, CMP, 97713-6 #### [facility] ([id number]) [address], [address] [place] [address] Chloride [Moles/Vol] 100 mmol/L Normal 98-109 [facility] Comment on above: Performed By: #### C BCA, CMP, 93713-8 #### [facility] ([id number]) [address], [address] [place] [address] CO2 [Moles/Vol] 27 mmol/L Normal 22-32 [facility] Comment on above: Performed By: #### C ZACHARY, CMP, 47209-6 #### [facility] ([id number]) [address], [address] [place] [address] Creatinine [Mass/Vol] 0.62 mg/dL Normal 0.60-1.30 [facility] Comment on above: Result Comment: METH OD TRACEABLE TO IDMS STANDARD Performed By: #### C ZACHARY, CMP, 72819-0 #### [facility] ([id number]) [address], [address] [place] [address] eGFR (CKD-EPI) NON-RACE DEPENDENT >90 Normal >59 [facility] Comment on above: Result Comment: Reported eGFR is based on the CKD-EPI 2020 equation that does not use a race coefficient. Performed By: #### C BCA, CMP, 44816-5 #### [facility] ([id number]) [address], [address] [place] [address] Glucose [Mass/Vol] 124 mg/dL High 65-[address] [facility] Comment on above: Performed By: #### C BCA, CMP, 70605-1 #### [facility] ([id number]) [address], [address] [place] [address] Potassium [Moles/Vol] 3.8 mmol/L Normal 3.5-5.0 [facility] Comment on above: Performed By: #### C BCA, CMP, 81440-6 #### [facility] ([id number]) [address], [address] [place] [address] Protein [Mass/Vol] 6.0 g/dL Normal 6.0-8.[address] [facility] Comment on above: Performed By: #### C BCA, CMP, 55859-9 #### [facility] ([id number]) [address], [address] [place] [address] Sodium [Moles/Vol] 137 mmol/L Normal 134-[address] [facility] Comment on above: Performed By: #### C BCA, CMP, 64666-1 #### [facility] ([id number]) [address], [address] [place] [address] Urea nitrogen [Mass/Vol] 7 mg/dL Normal 5-27 [facility] Comment on above: Performed By: #### Thais BCA, CMP, 52880-0 #### [facility] ([id number]) [address], [address] [place] [address] Folate [Mass/Vol]on 04-19-20 FOLIC ACID 8.1 ng/mL Normal >5.8 [facility] Comment on above: Result Comment: NEW REFERENCE RANGE Performed By: #### C BCA, CMP, 27031-3 #### [facility] ([id number]) [address], [address] [place] [address] Glucose Glucometer (BldC) [M ass/Vol]on 04-19-2024 Glucose [Mass/Vol] 142 mg/dL High 65-[address] [facility] Glucose [Mass/Vol] 129 mg/dL High 65-[address] [facility] Glucose [Mass/Vol] 119 mg/dL High 65-[address] [facility] Glucose [Mass/Vol] 132 mg/dL High 65-[address] [facility] HGB AND HCTon 04-19-2024 Hematocrit (Bld) [Volume fraction] 32.0 % Low 39-49 [facility] Comment on above: Performed By: #### C BCA, CMP, 97922-8 #### [facility] ([id number]) [address] [place] [address], [address] [place] [address] Hemoglobin (Bld) [Mass/Vol] 11.1 g/dL Low 13.0-17.0 [facility] Comment on above: Performed By: #### C BCA, CMP, 41327-0 #### [facility] ([id number]) [address] [place] [address], [address] [place] [address] Surgical Pathologyon 024 Surgical Pathology Normal [facility] Comment on above: Result Comment: [facility] [address] [place] [address] Surgical Pathology Consultation Patient Name:VASHTI MASSEY:1955 (Age: 68)Gender:MTaken:04/19/2024eported:04/22/2024hysician(s):Ray Craft MD ( )Copy To: Rec. #:[id number]: #[id number] Final Pathologic Diagnosis 1. Transverse colon polyp: Tubular adenoma. 2. Transverse colon polyp #2; EMR: Tubular adenoma fragments. Report Electronically Signed Out st/04/22/2024Bee Ontiveros MD Interpretation performed at [facility], [address] [place], [address], License number: [id number]. Clinical History Iron deficiency anemia, unspecified iron deficiency anemia type. Gross Description 1. Received in formalin labeled BRYSON, transverse colon polyp are eight pale black feathery soft tissue bits admixed with friable vegetative material, 0.1-0.6 cm. The specimen is filtered and entirely submitted in a single cassette. (1, ns, [id number],[id number]) DM. 2. Received in formalin labeled BRYSON, transverse colon polyp #2 is a pale-black polyp, 1.1 x 0.8 x 0.5 cm. The resection margin is inked black. The specimen is serially sectioned and entirely submitted in cassette A. Also received in the container are eight pale-black feathery soft tissue fragments, 0.1-0.6 cm. These are submitted in cassette B. (2, ns, [id number],[id number]) DM. dm/04/20/2024NSK Specimen(s) Received 1: Transverse colon polyp 2: Transverse colon polyp #2; EMR Fee Codes(s): 1; 74536 2; 30980 THYROID PROFILEon 04-19-2024 Free T4 [Mass/Vol] 1.13 ng/dL Normal 0.61-1.[address] [facility] Comment on above: Performed By: #### C BCA, [facility], 14444-3 #### [facility] ([id number]) [address], [address] [place] [address] TSH 5.50 uIU/mL High 0.49-4.67 [facility] Comment on above: Performed By: #### C BCA, [facility], 17664-1 #### [facility] ([id number]) [address], [address] [place] [address] Thiamine (Bld) [Mass/Vol]on 04-19-2024 THIAMIN VITAMIN B1 See Below Normal [facility] Comment on above: Result Comment: NOTE TEST RESULT FLAG UNIT REF.RANGE ------- Vitamin B1 (TDP), Whole Blood 95.2 nmol/L 84.3-213.3 This assay measures the concentration of thiamine diphosphate (TDP), the primary active form of vitamin B1. Approximately 90 percent of vitamin B1 present in whole blood is TDP. Thiamine and thiamine monophosphate, which comprise the remaining 10 percent, are not measured. This test was developed and its performance characteristics determined by [facility] [place] ([facility]). It has not been cleared or approved by the FDA. -[facility] is regulated under CLIA as qualified to perform high-complexity testing. This test is used for clinical purposes. It should not be regarded as investigational or for research. Test Performed By: [place] [address] Line Prep Cook: Bijan Murphy III, M.D. CLIA #[id number] Performed By: #### C NAHOMY SHARMA, 52797-6 #### [facility] ([id number]) [address], [address] [place] [address] VITAMIN B12on 04-19-2024 Cobalamin (Vitamin B12) [Mass/Vol] pg/mL High 180-914 [facility] Comment on above: Performed By: #### Thais SHARMA CMP, 29983-0 #### [facility] ([id number]) [address], [address] [place] [address] CBC AND AUTO DIFFon 04-18-20 ABSOLUTE BASOPHIL 0.0 X10E9/L Normal 0.0-0.[address] [facility] Comment on above: Performed By: #### Thais SHARMA CMP, 12794-7 #### [facility] ([id number]) [address], [address] [place] [address] ABSOLUTE NEUTROPHIL 2.5 X10E9/L Normal 1.5-6.6 [facility] Comment on above: Performed By: #### Thais SHARMA CMP, 40716-5 #### [facility] ([id number]) [address], [address] [place] [address] Basophils/100 WBC (Bld) 0.9 % Normal [facility] Comment on above: Performed By: #### Thais SHARMA, CMP, 79774-0 #### [facility] ([id number]) [address], [address] [place] [address] Eosinophils (Bld) [#/Vol] 0.1 10*3/uL Normal 0.0-0.4 [facility] Comment on above: Performed By: #### C NAHOMY SHARMA, 07986-2 #### [facility] ([id number]) [address], [address] [place] [address] Eosinophils/100 WBC (Bld) 2.4 % Normal [facility] Comment on above: Performed By: #### Thais SHARMA CMP, 26953-9 #### [facility] ([id number]) [address], [facility] [address] [place] [address] Erythrocyte distribution width (RBC) [Ratio] 15.9 % High 11.5-15.0 [facility] Comment on above: Performed By: #### Thais SHARMA CMP, 84274-5 #### [facility] ([id number]) [address], [address] [place] [address] Hematocrit (Bld) [Volume fraction] 27.5 % Low 39-49 [facility] Comment on above: Performed By: #### Thais SHARMA CMP, 64617-3 #### [facility] ([id number]) [address], [address] [place] [address] Hemoglobin (Bld) [Mass/Vol] 9.6 g/dL Low 13.0-17.0 [facility] Comment on above: Performed By: #### Thais SHARMA CMP, 40436-8 #### [facility] ([id number]) [address], [address] [place] [address] Lymphocytes (Bld) [#/Vol] 0.8 10*3/uL Low 1.0-3.5 [facility] Comment on above: Performed By: #### Thais SHARMA CMP, 41463-0 #### [facility] ([id number]) [address], [address] [place] [address] Lymphocytes/100 WBC (Bld) 22.0 % Normal [facility] Comment on above: Performed By: #### C BCA, CMP, 15886-7 #### [facility] ([id number]) [address], [address] [place] [address] MCH (RBC) [Entitic mass] 31.2 pg Normal 27-34 [facility] Comment on above: Performed By: #### C BCA, CMP, 43268-3 #### [facility] ([id number]) [address], [address] [place] [address] MCHC (RBC) [Mass/Vol] 34.8 g/dL Normal 32-36 [facility] Comment on above: Performed By: #### C BCA, CMP, 69348-5 #### [facility] ([id number]) [address], [address] [place] [address] MCV (RBC) [Entitic vol] 90 fL Normal 80-100 [facility] Comment on above: Performed By: #### C BCA, CMP, 00829-5 #### [facility] ([id number]) [address], [address] [place] [address] Monocytes (Bld) [#/Vol] 0.2 10*3/uL Normal 0-0.9 [facility] Comment on above: Performed By: #### C BCA, CMP, 42121-5 #### [facility] ([id number]) [address], [address] [place] [address] Monocytes/100 WBC (Bld) 6.4 % Normal [facility] Comment on above: Performed By: #### C BCA, CMP, 81067-4 #### [facility] ([id number]) [address], [address] [place] [address] Neutrophils/100 WBC (Bld) 68.3 % Normal [facility] Comment on above: Performed By: #### C BCA, CMP, 69987-1 #### [facility] ([id number]) [address], [address] [place] [address] Platelet mean volume (Bld) [Entitic vol] 6.9 fL Low 7-12 [facility] Comment on above: Performed By: #### C BCA, CMP, 75912-1 #### [facility] ([id number]) [address], [facility] [address] [place] [address] Platelets (Bld) [#/Vol] 251 10*3/uL Normal 150-450 [facility] Comment on above: Performed By: #### C BCA, CMP, 82910-6 #### [facility] ([id number]) [address], [facility] [address] [place] [address] RBC COUNT 3.07 X10E12/L Low 4.10-5.70 [facility] Comment on above: Performed By: #### C BCA, CMP, 88843-1 #### [facility] ([id number]) [address], [facility] [address] [place] [address] WBC (Bld) [#/Vol] 3.6 10*3/uL Low 4.0-11.[address] [facility] Comment on above: Performed By: #### C BCA, CMP, 80170-0 #### [facility] ([id number]) [address], [address] [place] [address] COMPREHENSIVE METABOLIC PANE [place] 04-18-2024 Albumin [Mass/Vol] 3.6 g/dL Normal 3.2-5.[address] [facility] Comment on above: Performed By: #### C BCA, CMP, 15484-1 #### [facility] ([id number]) [address], [address] [place] [address] ALP [Catalytic activity/Vol] 85 U/L Normal 39-130 [facility] Comment on above: Performed By: #### C BCA, CMP, 76479-4 #### [facility] ([id number]) [address], [address] [place] [address] ALT [Catalytic activity/Vol] 41 U/L High 0-40 [facility] Comment on above: Performed By: #### C BCA, CMP, 94098-9 #### [facility] ([id number]) [address], [address] [place] [address] Anion gap [Moles/Vol] 11 mmol/L Normal 5-15 [facility] Comment on above: Performed By: #### C BCA, CMP, 61150-2 #### [facility] ([id number]) [address], [address] [place] [address] AST [Catalytic activity/Vol] 26 U/L Normal 0-41 [facility] Comment on above: Performed By: #### Thias SHARMA, CMP, 62674-1 #### [facility] ([id number]) [address] [place] [address] Bilirubin [Mass/Vol] 0.7 mg/dL Normal 0.3-1.2 [facility] Comment on above: Performed By: #### hTais SHARMA, CMP, 11594-7 #### [facility] ([id number]) [address], [address] [place] [address] Calcium [Mass/Vol] 8.6 mg/dL Normal 8.5-10.[address] [facility] Comment on above: Performed By: #### C BCA, CMP, 42605-1 #### [facility] ([id number]) [address], [address] [place] [address] Chloride [Moles/Vol] 100 mmol/L Normal 98-109 [facility] Comment on above: Performed By: #### C BCA, CMP, 57873-1 #### [facility] ([id number]) [address], [address] [place] [address] CO2 [Moles/Vol] 25 mmol/L Normal 22-32 [facility] Comment on above: Performed By: #### C ZACHARY CMP, 76829-5 #### [facility] ([id number]) [address] [address] [place] [address] Creatinine [Mass/Vol] 0.59 mg/dL Low 0.60-1.30 [facility] Comment on above: Result Comment: METH OD TRACEABLE TO IDMS STANDARD Performed By: #### C NAHOMY SHARMA, 46319-7 #### [facility] ([id number]) [address], [address] [place] [address] eGFR (CKD-EPI) NON-RACE DEPENDENT >90 Normal >59 [facility] Comment on above: Result Comment: Reported eGFR is based on the CKD-EPI 2020 equation that does not use a race coefficient. Performed By: #### C NAHOMY SHARMA, 09227-1 #### [facility] ([id number]) [address], [address] [place] [address] Glucose [Mass/Vol] 104 mg/dL High 65-[address] [facility] Comment on above: Performed By: #### C NAHOMY SHARMA, 05092-2 #### [facility] ([id number]) [address], [address] [place] [address] Potassium [Moles/Vol] 3.7 mmol/L Normal 3.5-5.0 [facility] Comment on above: Performed By: #### C ZACHARY CMP, 85946-5 #### [facility] ([id number]) [address], [address] [place] [address] Protein [Mass/Vol] 5.7 g/dL Low 6.0-8.[address] [facility] Comment on above: Performed By: #### C BCA, CMP, 27849-1 #### [facility] ([id number]) [address], [address] [place] [address] Sodium [Moles/Vol] 136 mmol/L Normal 134-[address] [facility] Comment on above: Performed By: #### Thais SHARMA CMP, 19691-6 #### [facility] ([id number]) [address], [address] [place] [address] Urea nitrogen [Mass/Vol] 12 mg/dL Normal 5-27 [facility] Comment on above: Performed By: #### Thais SHARMA CMP, 06885-3 #### [facility] ([id number]) [address], [address] [place] [address] Glucose Glucometer (BldC) [M ass/Vol]on 04-18-2024 Glucose [Mass/Vol] 135 mg/dL High 65-[address] [facility] Glucose [Mass/Vol] 168 mg/dL High 65-[address] [facility] Glucose [Mass/Vol] 169 mg/dL High 65-[address] [facility] HGB AND HCTon 04-18-2024 Hematocrit (Bld) [Volume fraction] 27.9 % Low 39-49 [facility] Comment on above: Performed By: #### Thais SHARMA CMP, 04552-0 #### [facility] ([id number]) [address] [place] [address] Hemoglobin (Bld) [Mass/Vol] 9.6 g/dL Low 13.0-17.0 [facility] Comment on above: Performed By: #### Thais SHARMA CMP, 11120-1 #### [facility] ([id number]) [address] [place] [address] POTASSIUMon 04-18-2024 Potassium [Moles/Vol] 4.4 mmol/L Normal 3.5-5.0 [facility] Comment on above: Performed By: #### Thais SHARMA, CMP, 40143-1 #### [facility] ([id number]) [address], [address] [place] [address] CBC AND AUTO DIFFon 06-22-20 24 ABSOLUTE BASOPHIL 0.0 X10E9/L Normal 0.0-0.[address] [facility] Comment on above: Performed By: #### Thais SHARMA CMP, 61659-1 #### [facility] ([id number]) [address], [address] [place] [address] ABSOLUTE NEUTROPHIL 2.5 X10E9/L Normal 1.5-6.6 [facility] Comment on above: Performed By: #### Thais SHARMA CMP, 48947-7 #### [facility] ([id number]) [address], [facility] [address] [place] [address] Basophils/100 WBC (Bld) 1.0 % Normal [facility] Comment on above: Performed By: #### Thais SHARMA CMP, 08083-5 #### [facility] ([id number]) [address], [address] [place] [address] Eosinophils (Bld) [#/Vol] 0.2 10*3/uL Normal 0.0-0.4 [facility] Comment on above: Performed By: #### Thais SHARMA CMP, 10849-9 #### [facility] ([id number]) [address], [address] [place] [address] Eosinophils/100 WBC (Bld) 4.1 % Normal [facility] Comment on above: Performed By: #### Thais SHARMA CMP, 10476-6 #### [facility] ([id number]) [address], [address] [place] [address] Erythrocyte distribution width (RBC) [Ratio] 16.0 % High 11.5-15.0 [facility] Comment on above: Performed By: #### Thais SHARMA CMP, 41183-6 #### [facility] ([id number]) [address], [address] [place] [address] Hematocrit (Bld) [Volume fraction] 27.8 % Low 39-49 [facility] Comment on above: Performed By: #### C BCA, CMP, 63071-0 #### [facility] ([id number]) [address] [address] [place] [address] Hemoglobin (Bld) [Mass/Vol] 9.7 g/dL Low 13.0-17.0 [facility] Comment on above: Performed By: #### C BCA, CMP, 37828-2 #### [facility] ([id number]) [address], [facility] [address] [place] [address] Lymphocytes (Bld) [#/Vol] 1.0 10*3/uL Normal 1.0-3.5 [facility] Comment on above: Performed By: #### Thais BCA, CMP, 20893-9 #### [facility] ([id number]) [address] [address] [place] [address] Lymphocytes/100 WBC (Bld) 24.3 % Normal [facility] Comment on above: Performed By: #### Thais BCA, CMP, 54241-9 #### [facility] ([id number]) [address], [facility] [address] [place] [address] MCH (RBC) [Entitic mass] 31.1 pg Normal 27-34 [facility] Comment on above: Performed By: #### Thais BCA, CMP, 04081-8 #### [facility] ([id number]) [address] [address] [place] [address] MCHC (RBC) [Mass/Vol] 35.0 g/dL Normal 32-36 [facility] Comment on above: Performed By: #### C BCA, CMP, 66043-4 #### [facility] ([id number]) [address] [address] [place] [address] MCV (RBC) [Entitic vol] 89 fL Normal 80-100 [facility] Comment on above: Performed By: #### Thais BCA, CMP, 78112-2 #### [facility] ([id number]) [address], [address] [place] [address] Monocytes (Bld) [#/Vol] 0.3 10*3/uL Normal 0-0.9 [facility] Comment on above: Performed By: #### C BCA, CMP, 99657-9 #### [facility] ([id number]) [address], [address] [place] [address] Monocytes/100 WBC (Bld) 8.3 % Normal [facility] Comment on above: Performed By: #### C BCA, CMP, 96515-1 #### [facility] ([id number]) [address], [facility] [address] [place] [address] Neutrophils/100 WBC (Bld) 62.3 % Normal [facility] Comment on above: Performed By: #### Thais BCA, CMP, 62433-0 #### [facility] ([id number]) [address] [place] [address] Platelet mean volume (Bld) [Entitic vol] 6.9 fL Low 7-12 [facility] Comment on above: Performed By: #### C BCA, CMP, 90236-4 #### [facility] ([id number]) [address], [address] [place] [address] Platelets (Bld) [#/Vol] 267 10*3/uL Normal 150-450 [facility] Comment on above: Performed By: #### C BCA, CMP, 51784-5 #### [facility] ([id number]) [address], [address] [place] [address] RBC COUNT 3.13 X10E12/L Low 4.10-5.70 [facility] Comment on above: Performed By: #### C BCA, CMP, 55999-3 #### [facility] ([id number]) [address], [address] [place] [address] WBC (Bld) [#/Vol] 4.0 10*3/uL Normal 4.0-11.[address] [facility] Comment on above: Performed By: #### C BCA, CMP, 19353-5 #### [facility] ([id number]) [address], [address] [place] [address] COMPREHENSIVE METABOLIC PANE [place] 04-17-2024 Albumin [Mass/Vol] 3.7 g/dL Normal 3.2-5.[address] [facility] Comment on above: Performed By: #### C BCA, CMP, 43292-2 #### [facility] ([id number]) [address], [address] [place] [address] ALP [Catalytic activity/Vol] 83 U/L Normal 39-130 [facility] Comment on above: Performed By: #### C BCA, CMP, 33297-1 #### [facility] ([id number]) [address], [address] [place] [address] ALT [Catalytic activity/Vol] 29 U/L Normal 0-40 [facility] Comment on above: Performed By: #### C BCA, CMP, 61111-4 #### [facility] ([id number]) [address], [address] [place] [address] Anion gap [Moles/Vol] 8 mmol/L Normal 5-15 [facility] Comment on above: Performed By: #### C BCA, CMP, 37168-3 #### [facility] ([id number]) [address], [address] [place] [address] AST [Catalytic activity/Vol] 23 U/L Normal 0-41 [facility] Comment on above: Performed By: #### C BCA, CMP, 65329-0 #### [facility] ([id number]) [address], [address] [place] [address] Bilirubin [Mass/Vol] 0.8 mg/dL Normal 0.3-1.2 [facility] Comment on above: Performed By: #### C BCA, CMP, 20845-7 #### [facility] ([id number]) [address], [address] [place] [address] Calcium [Mass/Vol] 8.5 mg/dL Normal 8.5-10.[address] [facility] Comment on above: Performed By: #### C BCA, CMP, 94815-8 #### [facility] ([id number]) [address], [address] [place] [address] Chloride [Moles/Vol] 102 mmol/L Normal 98-109 [facility] Comment on above: Performed By: #### C BCA, CMP, 94356-6 #### [facility] ([id number]) [address], [address] [place] [address] CO2 [Moles/Vol] 27 mmol/L Normal 22-32 [facility] Comment on above: Performed By: #### C ZACHARY, CMP, 21906-8 #### [facility] ([id number]) [address], [address] [place] [address] Creatinine [Mass/Vol] 0.61 mg/dL Normal 0.60-1.30 [facility] Comment on above: Result Comment: METH OD TRACEABLE TO IDMS STANDARD Performed By: #### C BCA, CMP, 76537-9 #### [facility] ([id number]) [address], [address] [place] [address] eGFR (CKD-EPI) NON-RACE DEPENDENT >90 Normal >59 [facility] Comment on above: Result Comment: Reported eGFR is based on the CKD-EPI 2020 equation that does not use a race coefficient. Performed By: #### C BCA, CMP, 61222-3 #### [facility] ([id number]) [address], [address] [place] [address] Glucose [Mass/Vol] 123 mg/dL High 65-[address] [facility] Comment on above: Performed By: #### C BCA, CMP, 81784-4 #### [facility] ([id number]) [address], [address] [place] [address] Potassium [Moles/Vol] 4.1 mmol/L Normal 3.5-5.0 [facility] Comment on above: Performed By: #### C BCA, CMP, 38867-2 #### [facility] ([id number]) [address], [address] [place] [address] Protein [Mass/Vol] 5.7 g/dL Low 6.0-8.[address] [facility] Comment on above: Performed By: #### C BCA, CMP, 63855-6 #### [facility] ([id number]) [address], [address] [place] [address] Sodium [Moles/Vol] 137 mmol/L Normal 134-[address] [facility] Comment on above: Performed By: #### C BCA, CMP, 03492-7 #### [facility] ([id number]) [address], [address] [place] [address] Urea nitrogen [Mass/Vol] 16 mg/dL Normal 5-27 [facility] Comment on above: Performed By: #### C BCA, CMP, 21117-9 #### [facility] ([id number]) [address], [address] [place] [address] Glucose Glucometer (BldC) [M ass/Vol]on 04-17-2024 Glucose [Mass/Vol] 97 mg/dL Normal 65-[address] [facility] HGB AND HCTon 04-17-2024 Hematocrit (Bld) [Volume fraction] 28.5 % Low 39-49 [facility] Comment on above: Performed By: #### C BCA, CMP, 47142-8 #### [facility] ([id number]) [address], [address] [place] [address] Hemoglobin (Bld) [Mass/Vol] 9.8 g/dL Low 13.0-17.0 [facility] Comment on above: Performed By: #### C ZACHARY, CMP, 81636-4 #### [facility] ([id number]) [address], [address] [place] [address] Hematocrit (Bld) [Volume fraction] 29.3 % Low 39-49 [facility] Comment on above: Performed By: #### C ZACHARY, CMP, 40035-9 #### [facility] ([id number]) [address], [address] [place] [address] Hemoglobin (Bld) [Mass/Vol] 10.0 g/dL Low 13.0-17.0 [facility] Comment on above: Performed By: #### Thais SHARMA, CMP, 30813-1 #### [facility] ([id number]) [address], [address] [place] [address] CBC AND AUTO DIFFon 04-16- 24 Eosinophils (Bld) [#/Vol] 0.1 10*3/uL Normal 0.0-0.4 [facility] Comment on above: Performed By: #### C BCA, CMP ####[facility] ([id number])[address] [address], [place] [address] Eosinophils/100 WBC (Bld) 3.1 % Normal [facility] Comment on above: Performed By: #### C BCA, CMP ####[facility] ([id number])[address] [address] [address] Erythrocyte distribution width (RBC) [Ratio] 16.6 % High 11.5-15.0 [facility] Comment on above: Performed By: #### C BCA, CMP ####[facility] ([id number])[address] [address] Hematocrit (Bld) [Volume fraction] 28.1 % Low 39-49 [facility] Comment on above: Performed By: #### C BCA, CMP ####[facility] ([id number])[address] [address] Hemoglobin (Bld) [Mass/Vol] 9.8 g/dL Low 13.0-17.0 [facility] Comment on above: Performed By: #### C BCA, CMP ####[facility] ([id number])[address] [address] Lymphocytes (Bld) [#/Vol] 1.2 10*3/uL Normal 1.0-3.5 [facility] Comment on above: Performed By: #### C BCA, CMP ####[facility] ([id number])[address] [address] Lymphocytes/100 WBC (Bld) 27.6 % Normal [facility] Comment on above: Performed By: #### C BCA, CMP ####[facility] ([id number])[address] [address] MCH (RBC) [Entitic mass] 31.6 pg Normal 27-34 [facility] Comment on above: Performed By: #### C BCA, CMP ####[facility] ([id number])[address] [address] [place] [address] MCHC (RBC) [Mass/Vol] 34.9 g/dL Normal 32-36 [facility] Comment on above: Performed By: #### C BCA, CMP ####[facility] ([id number])[address] [address] [place] [address] MCV (RBC) [Entitic vol] 91 fL Normal 80-100 [facility] Comment on above: Performed By: #### C BCA, CMP ####[facility] ([id number])[address], [place] [address] Monocytes (Bld) [#/Vol] 0.2 10*3/uL Normal 0-0.9 [facility] Comment on above: Performed By: #### C ZACHARY, CMP ####[facility] ([id number])[address], [place] [address] Monocytes/100 WBC (Bld) 5.1 % Normal [facility] Comment on above: Performed By: #### C ZACHARY, CMP ####[facility] ([id number])[address], [place] [address] Neutrophils (Bld) [#/Vol] 2.7 10*3/uL Normal 1.5-6.6 [facility] Comment on above: Performed By: #### C ZACHARY, CMP ####[facility] ([id number])[address], [place] [address] OVALOCYTE 1+ Abnormal NONE [facility] Comment on above: Performed By: #### Thais SHARMA, CMP ####[facility] ([id number])[address], [place] [address] Platelet mean volume (Bld) [Entitic vol] 7.1 fL Normal 7-12 [facility] Comment on above: Performed By: #### C ZACHARY, CMP ####[facility] ([id number])[address], [place] [address] Platelets (Bld) [#/Vol] 257 10*3/uL Normal 150-450 [facility] Comment on above: Performed By: #### C ZACHARY, CMP ####[facility] ([id number])[address], [place] [address] POLYCHROMASIA 1+ Abnormal NONE [facility] Comment on above: Performed By: #### C ZACHARY, CMP ####[facility] ([id number])[address] [place] [address] RBC COUNT 3.10 X10E12/L Low 4.10-5.70 [facility] Comment on above: Performed By: #### C BCA, CMP ####[facility] ([id number])[address] [place] [address] SEG NEUTROPHIL 64.2 % Normal [facility] Comment on above: Performed By: #### C BCA, CMP ####[facility] ([id number])[address], [place] [address] WBC (Bld) [#/Vol] 4.2 10*3/uL Normal 4.0-11.[address] [facility] Comment on above: Performed By: #### C BCA, CMP ####[facility] ([id number])[address] [place] [address] COMPREHENSIVE METABOLIC PANE [place] 04-16-2024 Albumin [Mass/Vol] 3.8 g/dL Normal 3.2-5.[address] [facility] Comment on above: Performed By: #### C BCA, CMP ####[facility] ([id number])[address] [place] [address] ALP [Catalytic activity/Vol] 71 U/L Normal 39-130 [facility] Comment on above: Performed By: #### C BCA, CMP ####[facility] ([id number])[address] [place] [address] ALT [Catalytic activity/Vol] 19 U/L Normal 0-40 [facility] Comment on above: Performed By: #### C BCA, CMP ####[facility] ([id number])[address] [place] [address] Anion gap [Moles/Vol] 12 mmol/L Normal 5-15 [facility] Comment on above: Performed By: #### C BCA, CMP ####[facility] ([id number])[address], [place] [address] AST [Catalytic activity/Vol] 16 U/L Normal 0-41 [facility] Comment on above: Performed By: #### C BCA, CMP ####[facility] ([id number])[address], [place] [address] Bilirubin [Mass/Vol] 0.7 mg/dL Normal 0.3-1.2 [facility] Comment on above: Performed By: #### C BCA, CMP ####[facility] ([id number])[address] [address], [place] [address] Calcium [Mass/Vol] 8.4 mg/dL Low 8.5-10.[address] [facility] Comment on above: Performed By: #### C BCA, CMP ####[facility] ([id number])[address] [address] Chloride [Moles/Vol] 102 mmol/L Normal 98-109 [facility] Comment on above: Performed By: #### C BCA, CMP ####[facility] ([id number])[address] [address] [address] CO2 [Moles/Vol] 24 mmol/L Normal 22-32 [facility] Comment on above: Performed By: #### C BCA, CMP ####[facility] ([id number])[address], [place] [address] Creatinine [Mass/Vol] 0.60 mg/dL Normal 0.60-1.30 [facility] Comment on above: Result Comment: METH OD TRACEABLE TO IDMS STANDARD Performed By: #### C BCA, CMP ####[facility] ([id number])[address] [address] eGFR (CKD-EPI) NON-RACE DEPENDENT >90 Normal >59 [facility] Comment on above: Result Comment: Reported eGFR is based on the CKD-EPI 2020 equation that does not use a race coefficient. Performed By: #### C BCA, CMP ####[facility] ([id number])[address] [address] [address] Glucose [Mass/Vol] 147 mg/dL High 65-[address] [facility] Comment on above: Performed By: #### C BCA, CMP ####[facility] ([id number])[address] [address] Potassium [Moles/Vol] 3.8 mmol/L Normal 3.5-5.0 [facility] Comment on above: Performed By: #### C BCA, CMP ####[facility] ([id number])[address] [address] Protein [Mass/Vol] 5.6 g/dL Low 6.0-8.[address] [facility] Comment on above: Performed By: #### C BCA, CMP ####[facility] ([id number])[address] [address] [address] Sodium [Moles/Vol] 138 mmol/L Normal 134-[address] [facility] Comment on above: Performed By: #### C BCA, CMP ####[facility] ([id number])[address] [address] [place] [address], [place] [address] Urea nitrogen [Mass/Vol] 13 mg/dL Normal 5-27 [facility] Comment on above: Performed By: #### C BCA, CMP ####[facility] ([id number])[address] [address] [address] Glucose Glucometer (BldC) [M ass/Vol]on 04-16-2024 Glucose [Mass/Vol] 137 mg/dL High 65-[address] [facility] Glucose [Mass/Vol] 145 mg/dL High 65-[address] [facility] Glucose [Mass/Vol] 144 mg/dL High 65-[address] [facility] Glucose [Mass/Vol] 151 mg/dL High 65-[address] [facility] Glucose [Mass/Vol] 148 mg/dL High 65-[address] [facility] HGB AND HCTon 04-16-2024 Hematocrit (Bld) [Volume fraction] 26.4 % Low 39-49 [facility] Comment on above: Performed By: #### C ZACHARY, CMP, 48560-5 #### [facility] ([id number]) [address] [place] [address] Hemoglobin (Bld) [Mass/Vol] 9.4 g/dL Low 13.0-17.0 [facility] Comment on above: Performed By: #### C BCA, CMP, 51490-5 #### [facility] ([id number]) [address] [place] [address] Hematocrit (Bld) [Volume fraction] 30.2 % Low 39-49 [facility] Comment on above: Performed By: #### H H ####[facility] ([id number])[address], [place] [address] Hemoglobin (Bld) [Mass/Vol] 10.5 g/dL Low 13.0-17.0 [facility] Comment on above: Performed By: #### H H ####[facility] ([id number])[address], [place] [address] Hematocrit (Bld) [Volume fraction] 27.8 % Low 39-49 [facility] Comment on above: Performed By: #### H H ####[facility] ([id number])[address], [place] [address] Hemoglobin (Bld) [Mass/Vol] 9.6 g/dL Low 13.0-17.0 [facility] Comment on above: Performed By: #### H H ####[facility] ([id number])[address], [place] [address] CBC AND AUTO DIFFon 04-15-20 24 Eosinophils (Bld) [#/Vol] 0.3 10*3/uL Normal 0.0-0.4 [facility] Comment on above: Performed By: #### C BCA, CMP ####[facility] ([id number])[address] [place] [address] Eosinophils/100 WBC (Bld) 5.0 % Normal [facility] Comment on above: Performed By: #### C ZACHARY, CMP ####[facility] ([id number])[address] [address] Erythrocyte distribution width (RBC) [Ratio] 16.0 % High 11.5-15.0 [facility] Comment on above: Performed By: #### C ZACHARY, CMP ####[facility] ([id number])[address] [address] Hematocrit (Bld) [Volume fraction] 25.9 % Low 39-49 [facility] Comment on above: Performed By: #### C BCA, CMP ####[facility] ([id number])[address] [address] Hemoglobin (Bld) [Mass/Vol] 9.0 g/dL Low 13.0-17.0 [facility] Comment on above: Performed By: #### C BCA, CMP ####[facility] ([id number])[address] [address] Lymphocytes (Bld) [#/Vol] 1.6 10*3/uL Normal 1.0-3.5 [facility] Comment on above: Performed By: #### C BCA, CMP ####[facility] ([id number])[address] [address] Lymphocytes/100 WBC (Bld) 32.0 % Normal [facility] Comment on above: Performed By: #### C BCA, CMP ####[facility] ([id number])[address] [place] [address] MCH (RBC) [Entitic mass] 31.2 pg Normal 27-34 [facility] Comment on above: Performed By: #### C BCA, CMP ####[facility] ([id number])[address] [place] [address] MCHC (RBC) [Mass/Vol] 34.7 g/dL Normal 32-36 [facility] Comment on above: Performed By: #### C BCA, CMP ####[facility] ([id number])[address] [place] [address] MCV (RBC) [Entitic vol] 90 fL Normal 80-100 [facility] Comment on above: Performed By: #### C BCA, CMP ####[facility] ([id number])[address] [place] [address] Monocytes (Bld) [#/Vol] 0.4 10*3/uL Normal 0-0.9 [facility] Comment on above: Performed By: #### C BCA, CMP ####[facility] ([id number])[address] [place] [address] Monocytes/100 WBC (Bld) 9.0 % Normal [facility] Comment on above: Performed By: #### C BCA, CMP ####[facility] ([id number])[address] [address] Neutrophils (Bld) [#/Vol] 2.7 10*3/uL Normal 1.5-6.6 [facility] Comment on above: Performed By: #### C BCA, CMP ####[facility] ([id number])[address], [place] [address] Platelet mean volume (Bld) [Entitic vol] 7.0 fL Normal 7-12 [facility] Comment on above: Performed By: #### C ZACHARY, CMP ####[facility] ([id number])[address], [place] [address] Platelets (Bld) [#/Vol] 225 10*3/uL Normal 150-450 [facility] Comment on above: Performed By: #### C ZACHARY, CMP ####[facility] ([id number])[address] [address] POLYCHROMASIA 1+ Abnormal NONE [facility] Comment on above: Performed By: #### C ZACHARY, CMP ####[facility] ([id number])[address] [address] RBC COUNT 2.88 X10E12/L Low 4.10-5.70 [facility] Comment on above: Performed By: #### C BCA, CMP ####[facility] ([id number])[address] [address] SEG NEUTROPHIL 54.0 % Normal [facility] Comment on above: Performed By: #### C BCA, CMP ####[facility] ([id number])[address], [place] [address] WBC (Bld) [#/Vol] 5.0 10*3/uL Normal 4.0-11.[address] [facility] Comment on above: Performed By: #### C BCA, CMP ####[facility] ([id number])[address] [place] [address] COMPREHENSIVE METABOLIC PANE [place] 04-15-2024 Albumin [Mass/Vol] 3.5 g/dL Normal 3.2-5.[address] [facility] Comment on above: Performed By: #### C BCA, CMP ####[facility] ([id number])[address], [place] [address] ALP [Catalytic activity/Vol] 64 U/L Normal 39-130 [facility] Comment on above: Performed By: #### C BCA, CMP ####[facility] ([id number])[address], [place] [address] ALT [Catalytic activity/Vol] 18 U/L Normal 0-40 [facility] Comment on above: Performed By: #### C BCA, CMP ####[facility] ([id number])[address], [place] [address] Anion gap [Moles/Vol] 8 mmol/L Normal 5-15 [facility] Comment on above: Performed By: #### C BCA, CMP ####[facility] ([id number])[address], [place] [address] AST [Catalytic activity/Vol] 18 U/L Normal 0-41 [facility] Comment on above: Performed By: #### C BCA, CMP ####[facility] ([id number])[address], [place] [address] Bilirubin [Mass/Vol] 0.7 mg/dL Normal 0.3-1.2 [facility] Comment on above: Performed By: #### C BCA, CMP ####[facility] ([id number])[address], [place] [address] Calcium [Mass/Vol] 8.3 mg/dL Low 8.5-10.[address] [facility] Comment on above: Performed By: #### C BCA, CMP ####[facility] ([id number])[address], [place] [address] Chloride [Moles/Vol] 100 mmol/L Normal 98-109 [facility] Comment on above: Performed By: #### C BCA, CMP ####[facility] ([id number])[address], [place] [address] CO2 [Moles/Vol] 28 mmol/L Normal 22-32 [facility] Comment on above: Performed By: #### C BCA, CMP ####[facility] ([id number])[address] [address] Creatinine [Mass/Vol] 0.56 mg/dL Low 0.60-1.30 [facility] Comment on above: Result Comment: METH OD TRACEABLE TO IDMS STANDARD Performed By: #### C BCA, CMP ####[facility] ([id number])[address], [place] [address] eGFR (CKD-EPI) NON-RACE DEPENDENT >90 Normal >59 [facility] Comment on above: Result Comment: Reported eGFR is based on the CKD-EPI 2020 equation that does not use a race coefficient. Performed By: #### C BCA, CMP ####[facility] ([id number])[address] [address], [place] [address] Glucose [Mass/Vol] 152 mg/dL High 65-[address] [facility] Comment on above: Performed By: #### C BCA, CMP ####[facility] ([id number])[address] [address], [place] [address] Potassium [Moles/Vol] 4.2 mmol/L Normal 3.5-5.0 [facility] Comment on above: Performed By: #### C BCA, CMP ####[facility] ([id number])[address] [address], [place] [address] Protein [Mass/Vol] 5.4 g/dL Low 6.0-8.[address] [facility] Comment on above: Performed By: #### C BCA, CMP ####[facility] ([id number])[address] [place] [address] Sodium [Moles/Vol] 136 mmol/L Normal 134-[address] [facility] Comment on above: Performed By: #### C BCA, CMP ####[facility] ([id number])[address] [place] [address] Urea nitrogen [Mass/Vol] 14 mg/dL Normal 5-27 [facility] Comment on above: Performed By: #### C BCA, CMP ####[facility] ([id number])[address] [place] [address] Glucose Glucometer (BldC) [M ass/Vol]on 04-15-2024 Glucose [Mass/Vol] 159 mg/dL High 65-[address] [facility] Glucose [Mass/Vol] 146 mg/dL High 65-[address] [facility] Glucose [Mass/Vol] 145 mg/dL High 65-[address] [facility] Glucose [Mass/Vol] 153 mg/dL High 65-[address] [facility] Glucose [Mass/Vol] 164 mg/dL High 65-[address] [facility] HGB AND HCTon 04-15-2024 Hematocrit (Bld) [Volume fraction] 27.1 % Low 39-49 [facility] Comment on above: Performed By: #### H H ####[facility] ([id number])[address], [address] [place] [id number] Hemoglobin (Bld) [Mass/Vol] 9.3 g/dL Low 13.0-17.0 [facility] Comment on above: Performed By: #### H H ####[facility] ([id number])[address], [address] [place] [id number] Hematocrit (Bld) [Volume fraction] 26.9 % Low 39-49 [facility] Comment on above: Performed By: #### H H ####[facility] ([id number])[address], [address] [place] [address] Hemoglobin (Bld) [Mass/Vol] 9.5 g/dL Low 13.0-17.0 [facility] Comment on above: Performed By: #### H H ####[facility] ([id number])[address], [address] [place] [address] Hematocrit (Bld) [Volume fraction] 27.2 % Low 39-49 [facility] Comment on above: Performed By: #### H H ####[facility] ([id number])[address], [place] [address] Hemoglobin (Bld) [Mass/Vol] 9.4 g/dL Low 13.0-17.0 [facility] Comment on above: Performed By: #### H H ####[facility] ([id number])[address], [place] [address] CBC AND AUTO DIFFon 04-14-20 24 Band form neutrophils/100 WBC (Bld) 1.0 % Normal [facility] Comment on above: Performed By: #### U A #### [facility] ([id number]) [address], [address] [place] [address] Eosinophils (Bld) [#/Vol] 0.5 10*3/uL High 0.0-0.4 [facility] Comment on above: Performed By: #### U A #### [facility] ([id number]) [address], [address] [place] [address] Eosinophils/100 WBC (Bld) 7.0 % Normal [facility] Comment on above: Performed By: #### U A #### [facility] ([id number]) [address], [address] [place] [address] Erythrocyte distribution width (RBC) [Ratio] 15.8 % High 11.5-15.0 [facility] Comment on above: Performed By: #### U A #### [facility] ([id number]) [address] [address] [place] [address] Hematocrit (Bld) [Volume fraction] 25.8 % Low 39-49 [facility] Comment on above: Performed By: #### U A #### [facility] ([id number]) [address] [address] [place] [address] Hemoglobin (Bld) [Mass/Vol] 9.0 g/dL Low 13.0-17.0 [facility] Comment on above: Performed By: #### U A #### [facility] ([id number]) [address] [address] [place] [address] IMMATURE MONONUCLEAR 1.0 % Normal [facility] Comment on above: Performed By: #### U A #### [facility] ([id number]) [address] [address] [place] [address] Lymphocytes (Bld) [#/Vol] 1.7 10*3/uL Normal 1.0-3.5 [facility] Comment on above: Performed By: #### U A #### [facility] ([id number]) [address] [address] [place] [address] Lymphocytes/100 WBC (Bld) 23.0 % Normal [facility] Comment on above: Performed By: #### U A #### [facility] ([id number]) [address] [address] [place] [address] MCH (RBC) [Entitic mass] 31.0 pg Normal 27-34 [facility] Comment on above: Performed By: #### U A #### [facility] ([id number]) [address], [address] [place] [address] MCHC (RBC) [Mass/Vol] 34.9 g/dL Normal 32-[address] [facility] Comment on above: Performed By: #### U A #### [facility] ([id number]) [address], [address] [place] [address] MCV (RBC) [Entitic vol] 89 fL Normal 80-100 [facility] Comment on above: Performed By: #### U A #### [facility] ([id number]) [address], [address] [place] [address] Metamyelocytes/100 WBC (Bld) 1.0 % Normal [facility] Comment on above: Performed By: #### U A #### [facility] ([id number]) [address], [address] [place] [address] Monocytes (Bld) [#/Vol] 0.5 10*3/uL Normal 0-0.9 [facility] Comment on above: Performed By: #### U A #### [facility] ([id number]) [address], [address] [place] [address] Monocytes/100 WBC (Bld) 7.0 % Normal [facility] Comment on above: Performed By: #### U A #### [facility] ([id number]) [address], [address] [place] [address] MYELOCYTE 1.0 % Normal [facility] Comment on above: Performed By: #### U A #### [facility] ([id number]) [address] [place] [address] Neutrophils (Bld) [#/Vol] 4.4 10*3/uL Normal 1.5-6.6 [facility] Comment on above: Performed By: #### U A #### [facility] ([id number]) [address], [address] [place] [address] NUCLEATED RBC 1.0 /100 WBC Normal 0.0-1.0 [facility] Comment on above: Performed By: #### U A #### [facility] ([id number]) [address] [place] [address] Platelet mean volume (Bld) [Entitic vol] 7.2 fL Normal 7-12 [facility] Comment on above: Performed By: #### U A #### [facility] ([id number]) [address], [address] [place] [address] Platelets (Bld) [#/Vol] 241 10*3/uL Normal 150-450 [facility] Comment on above: Performed By: #### U A #### [facility] ([id number]) [address], [address] [place] [address] POLYCHROMASIA 1+ Abnormal NONE [facility] Comment on above: Performed By: #### U A #### [facility] ([id number]) [address], [address] [place] [address] RBC COUNT 2.90 X10E12/L Low 4.10-5.70 [facility] Comment on above: Performed By: #### U A #### [facility] ([id number]) [address], [address] [place] [address] SEG NEUTROPHIL 59.0 % Normal [facility] Comment on above: Performed By: #### U A #### [facility] ([id number]) [address], [address] [place] [address] WBC (Bld) [#/Vol] 7.4 10*3/uL Normal 4.0-11.[address] [facility] Comment on above: Performed By: #### U A #### [facility] ([id number]) [address], [address] [place] [address] COMPREHENSIVE METABOLIC PANE Delonte 04-14-2024 Albumin [Mass/Vol] 3.6 g/dL Normal 3.2-5.[address] [facility] Comment on above: Performed By: #### U A #### [facility] ([id number]) [address], [address] [place] [address] ALP [Catalytic activity/Vol] 55 U/L Normal 39-130 [facility] Comment on above: Performed By: #### U A #### [facility] ([id number]) [address], [address] [place] [address] ALT [Catalytic activity/Vol] 10 U/L Normal 0-40 [facility] Comment on above: Performed By: #### U A #### [facility] ([id number]) [address], [address] [place] [address] Anion gap [Moles/Vol] 10 mmol/L Normal 5-15 [facility] Comment on above: Performed By: #### U A #### [facility] ([id number]) [address] [place] [address] AST [Catalytic activity/Vol] 12 U/L Normal 0-41 [facility] Comment on above: Performed By: #### U A #### [facility] ([id number]) [address], [address] [place] [address] Bilirubin [Mass/Vol] 0.7 mg/dL Normal 0.3-1.2 [facility] Comment on above: Performed By: #### U A #### [facility] ([id number]) [address] [place] [address] Calcium [Mass/Vol] 8.4 mg/dL Low 8.5-10.[address] [facility] Comment on above: Performed By: #### U A #### [facility] ([id number]) [address] [place] [address] Chloride [Moles/Vol] 100 mmol/L Normal 98-109 [facility] Comment on above: Performed By: #### U A #### [facility] ([id number]) [address], [address] [place] [address] CO2 [Moles/Vol] 26 mmol/L Normal 22-32 [facility] Comment on above: Performed By: #### U A #### [facility] ([id number]) [address] [place] [address] Creatinine [Mass/Vol] 0.61 mg/dL Normal 0.60-1.30 [facility] Comment on above: Result Comment: METH OD TRACEABLE TO IDMS STANDARD Performed By: #### U A #### [facility] ([id number]) [address] [place] [address] eGFR (CKD-EPI) NON-RACE DEPENDENT >90 Normal >59 [facility] Comment on above: Result Comment: Reported eGFR is based on the CKD-EPI 2020 equation that does not use a race coefficient. Performed By: #### U A #### [facility] ([id number]) [address] [place] [address] Glucose [Mass/Vol] 189 mg/dL High 65-[address] [facility] Comment on above: Performed By: #### U A #### [facility] ([id number]) [address] [place] [address] Potassium [Moles/Vol] 4.0 mmol/L Normal 3.5-5.0 [facility] Comment on above: Performed By: #### U A #### [facility] ([id number]) [address], [address] [place] [address] Protein [Mass/Vol] 5.6 g/dL Low 6.0-8.[address] [facility] Comment on above: Performed By: #### U A #### [facility] ([id number]) [address], [address] [place] [address] Sodium [Moles/Vol] 136 mmol/L Normal 134-[address] [facility] Comment on above: Performed By: #### U A #### [facility] ([id number]) [address], [address] [place] [address] Urea nitrogen [Mass/Vol] 23 mg/dL Normal 5-27 [facility] Comment on above: Performed By: #### U A #### [facility] ([id number]) [address], [address] [place] [address] Glucose Glucometer (BldC) [M ass/Vol]on 04-14-2024 Glucose [Mass/Vol] 148 mg/dL High 65-[address] [facility] Glucose [Mass/Vol] 158 mg/dL High 65-[address] [facility] Glucose [Mass/Vol] 180 mg/dL High 65-[address] [facility] Glucose [Mass/Vol] 185 mg/dL High 65-[address] [facility] HGB AND HCTon 04-14-2024 Hematocrit (Bld) [Volume fraction] 26.1 % Low 39-49 [facility] Comment on above: Performed By: #### U A #### [facility] ([id number]) [address], [address] [place] [address] Hemoglobin (Bld) [Mass/Vol] 9.2 g/dL Low 13.0-17.0 [facility] Comment on above: Performed By: #### U A #### [facility] ([id number]) [address], [address] [place] [address] Hematocrit (Bld) [Volume fraction] 26.2 % Low 39-49 [facility] Comment on above: Performed By: #### U A #### [facility] ([id number]) [address] [place] [address] Hemoglobin (Bld) [Mass/Vol] 8.7 g/dL Low 13.0-17.0 [facility] Comment on above: Performed By: #### U A #### [facility] ([id number]) [address] [place] [address] TTG AB IGA IGGon 04-14-2024 TTG AB IGA <1.2 Normal <4.0 (Negative) [facility] TTG AB IGG <1.2 Normal <6.0 (Negative) [facility] Comment on above: Result Comment: NOTE Test Performed by: [facility] [address] [place] [address] Forder Operator: Naty Doyle Ph.D.; CLIA# [id number] CBC AND AUTO DIFFon 04-13-20 Eosinophils (Bld) [#/Vol] 0.2 10*3/uL Normal 0.0-0.4 [facility] Comment on above: Performed By: #### C BCA, CMP ####[facility] ([id number])[address] [address] Eosinophils/100 WBC (Bld) 3.0 % Normal [facility] Comment on above: Performed By: #### C BCA, CMP ####[facility] ([id number])[address] [address] Erythrocyte distribution width (RBC) [Ratio] 14.4 % Normal 11.5-15.0 [facility] Comment on above: Performed By: #### C BCA, CMP ####[facility] ([id number])[address] [address] Hematocrit (Bld) [Volume fraction] 17.2 % Low 39-49 [facility] Comment on above: Performed By: #### C BCA, CMP ####[facility] ([id number])[address], [place] [address] Hemoglobin (Bld) [Mass/Vol] 5.8 g/dL Critically low 13.0-17.0 [facility] Comment on above: Performed By: #### C BCA, CMP ####[facility] ([id number])[address], [place] [address] Lymphocytes (Bld) [#/Vol] 2.1 10*3/uL Normal 1.0-3.5 [facility] Comment on above: Performed By: #### C BCA, CMP ####[facility] ([id number])[address], [place] [address] Lymphocytes/100 WBC (Bld) 27.0 % Normal [facility] Comment on above: Performed By: #### C BCA, CMP ####[facility] ([id number])[address], [place] [address] MCH (RBC) [Entitic mass] 30.4 pg Normal 27-34 [facility] Comment on above: Performed By: #### C BCA, CMP ####[facility] ([id number])[address], [place] [address] MCHC (RBC) [Mass/Vol] 33.9 g/dL Normal 32-36 [facility] Comment on above: Performed By: #### C BCA, CMP ####[facility] ([id number])[address], [place] [address] MCV (RBC) [Entitic vol] 90 fL Normal 80-100 [facility] Comment on above: Performed By: #### C BCA, CMP ####[facility] ([id number])[address], [place] [address] Metamyelocytes/100 WBC (Bld) 1.0 % Normal [facility] Comment on above: Performed By: #### C BCA, CMP ####[facility] ([id number])[address] [address] Monocytes (Bld) [#/Vol] 0.4 10*3/uL Normal 0-0.9 [facility] Comment on above: Performed By: #### C BCA, CMP ####[facility] ([id number])[address] [place] [address] Monocytes/100 WBC (Bld) 5.0 % Normal [facility] Comment on above: Performed By: #### C ZACHARY, CMP ####[facility] ([id number])[address] [address] [address] Neutrophils (Bld) [#/Vol] 4.8 10*3/uL Normal 1.5-6.6 [facility] Comment on above: Performed By: #### C BCA, CMP ####[facility] ([id number])[address] [address], [place] [address] NUCLEATED RBC 1.0 /100 WBC Normal 0.0-1.0 [facility] Comment on above: Performed By: #### C BCA, CMP ####[facility] ([id number])[address] [place] [address] Platelet mean volume (Bld) [Entitic vol] 7.3 fL Normal 7-12 [facility] Comment on above: Performed By: #### C BCA, CMP ####[facility] ([id number])[address] [address] Platelets (Bld) [#/Vol] 259 10*3/uL Normal 150-450 [facility] Comment on above: Performed By: #### C BCA, CMP ####[facility] ([id number])[address] [address] POLYCHROMASIA 2+ Abnormal NONE [facility] Comment on above: Performed By: #### C BCA, CMP ####[facility] ([id number])[address], [place] [address] RBC COUNT 1.92 X10E12/L Low 4.10-5.70 [facility] Comment on above: Performed By: #### C BCA, CMP ####[facility] ([id number])[address] [address] SEG NEUTROPHIL 64.0 % Normal [facility] Comment on above: Performed By: #### C BCA, CMP ####[facility] ([id number])[address], [place] [address] WBC (Bld) [#/Vol] 7.6 10*3/uL Normal 4.0-11.[address] [facility] Comment on above: Performed By: #### C BCA, CMP ####[facility] ([id number])[address], [place] [address] COMPREHENSIVE METABOLIC PANE [place] 04-13-2024 Albumin [Mass/Vol] 3.3 g/dL Normal 3.2-5.[address] [facility] Comment on above: Performed By: #### C BCA, CMP ####[facility] ([id number])[address] [place] [address] ALP [Catalytic activity/Vol] 48 U/L Normal 39-130 [facility] Comment on above: Performed By: #### C BCA, CMP ####[facility] ([id number])[address], [place] [address] ALT [Catalytic activity/Vol] 8 U/L Normal 0-40 [facility] Comment on above: Performed By: #### C BCA, CMP ####[facility] ([id number])[address], [place] [address] Anion gap [Moles/Vol] 8 mmol/L Normal 5-15 [facility] Comment on above: Performed By: #### C BCA, CMP ####[facility] ([id number])[address], [place] [address] AST [Catalytic activity/Vol] 7 U/L Normal 0-41 [facility] Comment on above: Performed By: #### C BCA, CMP ####[facility] ([id number])[address] [address] [place] [address] Bilirubin [Mass/Vol] 0.5 mg/dL Normal 0.3-1.2 [facility] Comment on above: Performed By: #### C BCA, CMP ####[facility] ([id number])[address] [address] [place] [address] Calcium [Mass/Vol] 8.4 mg/dL Low 8.5-10.[address] [facility] Comment on above: Performed By: #### C BCA, CMP ####[facility] ([id number])[address] [address], [place] [address] Chloride [Moles/Vol] 102 mmol/L Normal 98-109 [facility] Comment on above: Performed By: #### C BCA, CMP ####[facility] ([id number])[address] [address], [place] [address] CO2 [Moles/Vol] 27 mmol/L Normal 22-32 [facility] Comment on above: Performed By: #### C BCA, CMP ####[facility] ([id number])[address] [address], [place] [address] Creatinine [Mass/Vol] 0.64 mg/dL Normal 0.60-1.30 [facility] Comment on above: Result Comment: METH OD TRACEABLE TO IDMS STANDARD Performed By: #### C BCA, CMP ####[facility] ([id number])[address] [address] [place] [address], [place] [address] eGFR (CKD-EPI) NON-RACE DEPENDENT >90 Normal >59 [facility] Comment on above: Result Comment: Reported eGFR is based on the CKD-EPI 1 equation that does not use a race coefficient. Performed By: #### C BCA, CMP ####[facility] ([id number])[address] [address] [address] Glucose [Mass/Vol] 218 mg/dL High 65-[address] [facility] Comment on above: Performed By: #### C BCA, CMP ####[facility] ([id number])[address] [address], [place] [address] Potassium [Moles/Vol] 3.7 mmol/L Normal 3.5-5.0 [facility] Comment on above: Performed By: #### C BCA, CMP ####[facility] ([id number])[address] [address] [place] [address] Protein [Mass/Vol] 4.9 g/dL Low 6.0-8.[address] [facility] Comment on above: Performed By: #### C BCA, CMP ####[facility] ([id number])[address] [address] [address] Sodium [Moles/Vol] 137 mmol/L Normal 134-[address] [facility] Comment on above: Performed By: #### C BCA, CMP ####[facility] ([id number])[address] [address] [place] [address] Urea nitrogen [Mass/Vol] 35 mg/dL High 5-27 [facility] Comment on above: Performed By: #### C BCA, CMP ####[facility] ([id number])[address] [address] [place] [address], [place] [address] CT CTA ABD AND PELVISon 06-1 8-[address]24 CT CTA ABD AND PELVIS CT CTA [...] Ruth MD on 04/13/2024 5:08 PM Normal [facility] Glucose Glucometer (BldC) [M ass/Vol]on 04-13-2024 Glucose [Mass/Vol] 195 mg/dL High 65-[address] [facility] Glucose [Mass/Vol] 215 mg/dL High 65-[address] [facility] Glucose [Mass/Vol] 214 mg/dL High 65-[address] [facility] Glucose [Mass/Vol] 208 mg/dL High 65-[address] [facility] HGB AND HCTon 04-13-2024 Hematocrit (Bld) [Volume fraction] 24.2 % Low 39-49 [facility] Comment on above: Performed By: #### U A #### [facility] ([id number]) [address] [place] [address] Hemoglobin (Bld) [Mass/Vol] 8.5 g/dL Low 13.0-17.0 [facility] Comment on above: Performed By: #### U A #### [facility] ([id number]) [address] [place] [address] Hematocrit (Bld) [Volume fraction] 22.5 % Low 39-49 [facility] Comment on above: Performed By: #### H H ####[facility] ([id number])[address], [place] [address] Hemoglobin (Bld) [Mass/Vol] 7.8 g/dL Low 13.0-17.0 [facility] Comment on above: Performed By: #### H H ####[facility] ([id number])[address], [place] [address] Hematocrit (Bld) [Volume fraction] 16.3 % Low 39-49 [facility] Comment on above: Performed By: #### H H ####[facility] ([id number])[address], [place] [address] Hemoglobin (Bld) [Mass/Vol] 5.9 g/dL Critically low 13.0-17.0 [facility] Comment on above: Performed By: #### H H ####[facility] ([id number])[address] [address], [place] [address] CBC AND AUTO DIFFon 04-12-20 24 ABSOLUTE BASOPHIL 0.0 X10E9/L Normal 0.0-0.[address] [facility] Comment on above: Performed By: #### C BCA, CMP #### [facility] ([id number]) [address] [place] [address] ABSOLUTE NEUTROPHIL 4.8 X10E9/L Normal 1.5-6.6 [facility] Comment on above: Performed By: #### C BCA, CMP #### [facility] ([id number]) [address] [place] [address] Basophils/100 WBC (Bld) 0.6 % Normal [facility] Comment on above: Performed By: #### C BCA, CMP #### [facility] ([id number]) [address] [place] [address] Eosinophils (Bld) [#/Vol] 0.0 10*3/uL Normal 0.0-0.4 [facility] Comment on above: Performed By: #### C ZACHARY, CMP #### [facility] ([id number]) [address] [place] [address] Eosinophils/100 WBC (Bld) 0.5 % Normal [facility] Comment on above: Performed By: #### C ZACHARY, CMP #### [facility] ([id number]) [address] [place] [address] Erythrocyte distribution width (RBC) [Ratio] 14.4 % Normal 11.5-15.0 [facility] Comment on above: Performed By: #### C BCA, CMP #### [facility] ([id number]) [address], [address] [place] [address] Hematocrit (Bld) [Volume fraction] 22.5 % Low 39-49 [facility] Comment on above: Performed By: #### C BCA, CMP #### [facility] ([id number]) [address], [address] [place] [address] Hemoglobin (Bld) [Mass/Vol] 7.9 g/dL Low 13.0-17.0 [facility] Comment on above: Performed By: #### C BCA, CMP #### [facility] ([id number]) [address], [address] [place] [address] Lymphocytes (Bld) [#/Vol] 1.6 10*3/uL Normal 1.0-3.5 [facility] Comment on above: Performed By: #### C BCA, CMP #### [facility] ([id number]) [address], [address] [place] [address] Lymphocytes/100 WBC (Bld) 22.9 % Normal [facility] Comment on above: Performed By: #### C ZACHARY, CMP #### [facility] ([id number]) [address], [address] [place] [address] MCH (RBC) [Entitic mass] 31.4 pg Normal 27-34 [facility] Comment on above: Performed By: #### C ZACHARY, CMP #### [facility] ([id number]) [address], [address] [place] [address] MCHC (RBC) [Mass/Vol] 35.1 g/dL Normal 32-36 [facility] Comment on above: Performed By: #### C BCA, CMP #### [facility] ([id number]) [address], [address] [place] [address] MCV (RBC) [Entitic vol] 90 fL Normal 80-100 [facility] Comment on above: Performed By: #### C BCA, CMP #### [facility] ([id number]) [address], [address] [place] [address] Monocytes (Bld) [#/Vol] 0.4 10*3/uL Normal 0-0.9 [facility] Comment on above: Performed By: #### C BCA, CMP #### [facility] ([id number]) [address], [address] [place] [address] Monocytes/100 WBC (Bld) 5.7 % Normal [facility] Comment on above: Performed By: #### C BCA, CMP #### [facility] ([id number]) [address] [place] [address] Neutrophils/100 WBC (Bld) 70.3 % Normal [facility] Comment on above: Performed By: #### C BCA, CMP #### [facility] ([id number]) [address], [facility] [address] [place] [address] Platelet mean volume (Bld) [Entitic vol] 7.4 fL Normal 7-12 [facility] Comment on above: Performed By: #### C ZACHARY, CMP #### [facility] ([id number]) [address], [facility] [address] [place] [address] Platelets (Bld) [#/Vol] 281 10*3/uL Normal 150-450 [facility] Comment on above: Performed By: #### C BCA, CMP #### [facility] ([id number]) [address] [place] [address] RBC COUNT 2.52 X10E12/L Low 4.10-5.70 [facility] Comment on above: Performed By: #### C BCA, CMP #### [facility] ([id number]) [address] [place] [address] WBC (Bld) [#/Vol] 6.9 10*3/uL Normal 4.0-11.[address] [facility] Comment on above: Performed By: #### C BCA, CMP #### [facility] ([id number]) [address], [address] [place] [address] COMPREHENSIVE METABOLIC PANE [place] 04-12-2024 Albumin [Mass/Vol] 3.9 g/dL Normal 3.2-5.[address] [facility] Comment on above: Performed By: #### C BCA, CMP #### [facility] ([id number]) [address] [place] [address] ALP [Catalytic activity/Vol] 58 U/L Normal 39-130 [facility] Comment on above: Performed By: #### C BCA, CMP #### [facility] ([id number]) [address] [place] [address] ALT [Catalytic activity/Vol] 9 U/L Normal 0-40 [facility] Comment on above: Performed By: #### C BCA, CMP #### [facility] ([id number]) [address] [place] [address] Anion gap [Moles/Vol] 9 mmol/L Normal 5-15 [facility] Comment on above: Performed By: #### C BCA, CMP #### [facility] ([id number]) [address] [place] [address] AST [Catalytic activity/Vol] 9 U/L Normal 0-41 [facility] Comment on above: Performed By: #### C BCA, CMP #### [facility] ([id number]) [address] [place] [address] Bilirubin [Mass/Vol] 0.6 mg/dL Normal 0.3-1.2 [facility] Comment on above: Performed By: #### C BCA, CMP #### [facility] ([id number]) [address] [place] [address] Calcium [Mass/Vol] 8.8 mg/dL Normal 8.5-10.[address] [facility] Comment on above: Performed By: #### C BCA, CMP #### [facility] ([id number]) [address] [place] [address] Chloride [Moles/Vol] 104 mmol/L Normal 98-109 [facility] Comment on above: Performed By: #### C BCA, CMP #### [facility] ([id number]) [address], [address] [place] [address] CO2 [Moles/Vol] 27 mmol/L Normal 22-32 [facility] Comment on above: Performed By: #### C BCA, CMP #### [facility] ([id number]) [address] [place] [address] Creatinine [Mass/Vol] 0.62 mg/dL Normal 0.60-1.30 [facility] Comment on above: Result Comment: METH OD TRACEABLE TO IDMS STANDARD Performed By: #### C BCA, CMP #### [facility] ([id number]) [address], [address] [place] [address] eGFR (CKD-EPI) NON-RACE DEPENDENT >90 Normal >59 [facility] Comment on above: Result Comment: Reported eGFR is based on the CKD-EPI 2020 equation that does not use a race coefficient. Performed By: #### C BCA, CMP #### [facility] ([id number]) [address] [place] [address] Glucose [Mass/Vol] 206 mg/dL High 65-[address] [facility] Comment on above: Performed By: #### C BCA, CMP #### [facility] ([id number]) [address] [place] [address] Potassium [Moles/Vol] 3.7 mmol/L Normal 3.5-5.0 [facility] Comment on above: Performed By: #### C BCA, CMP #### [facility] ([id number]) [address] [place] [address] Protein [Mass/Vol] 5.8 g/dL Low 6.0-8.[address] [facility] Comment on above: Performed By: #### C BCA, CMP #### [facility] ([id number]) [address] [place] [address] Sodium [Moles/Vol] 140 mmol/L Normal 134-[address] [facility] Comment on above: Performed By: #### C ZACHARY, CMP #### [facility] ([id number]) [address] [place] [address] Urea nitrogen [Mass/Vol] 24 mg/dL Normal 5-27 [facility] Comment on above: Performed By: #### C ZACHARY, CMP #### [facility] ([id number]) [address] [place] [address] Glucose Glucometer (BldC) [M ass/Vol]on 04-12-2024 Glucose [Mass/Vol] 231 mg/dL High 65-[address] [facility] Glucose [Mass/Vol] 201 mg/dL High 65-[address] [facility] Glucose [Mass/Vol] 265 mg/dL High 65-[address] [facility] Glucose [Mass/Vol] 242 mg/dL High 65-[address] [facility] comment Harsh (Repo rt)on 04-12-2024 PLATELET INHIB,P2Y12 324 PRU Normal [facility] Comment on above: Result Comment: Low hematocrit, low platelet count and some hereditary disorders may affect results. Normal platelet reactivity due to low P2Y12 inhibition response. The P2Y12 Test should be interpreted in conjunction with other clinical and lab data. Performed By: #### C ZACHARY, CMP #### [facility] ([id number]) [address] [place] [address] MR BRAIN WO CONTon MR BRAIN WO [...] Metz MD on 04/12/2024 11:08 PM Normal [facility] CBC AND AUTO DIFFon 04-11-20 24 ABSOLUTE BASOPHIL 0.0 X10E9/L Normal 0.0-0.[address] [facility] Comment on above: Performed By: #### C ZACHARY CMP, 05994-1 #### [facility] ([id number]) [address] [place] [address] ABSOLUTE NEUTROPHIL 5.2 X10E9/L Normal 1.5-6.6 [facility] Comment on above: Performed By: #### Thais SHARMA CMP, 77705-4 #### [facility] ([id number]) [address] [place] [address] Basophils/100 WBC (Bld) 0.6 % Normal [facility] Comment on above: Performed By: #### Thais SHARMA CMP, 29567-2 #### [facility] ([id number]) [address] [address] [place] [address] Eosinophils (Bld) [#/Vol] 0.0 10*3/uL Normal 0.0-0.4 [facility] Comment on above: Performed By: #### Thais SHARMA CMP, 17035-5 #### [facility] ([id number]) [address] [place] [address] Eosinophils/100 WBC (Bld) 0.3 % Normal [facility] Comment on above: Performed By: #### C ZACHARY CMP, 24860-3 #### [facility] ([id number]) [address] [place] [address] Erythrocyte distribution width (RBC) [Ratio] 14.8 % Normal 11.5-15.0 [facility] Comment on above: Performed By: #### Thais SHARMA CMP, 68856-4 #### [facility] ([id number]) [address] [place] [address] Hematocrit (Bld) [Volume fraction] 22.2 % Low 39-49 [facility] Comment on above: Performed By: #### Thais SHARMA, CMP, 10473-7 #### [facility] ([id number]) [address] [place] [address] Hemoglobin (Bld) [Mass/Vol] 7.8 g/dL Low 13.0-17.0 [facility] Comment on above: Performed By: #### Thais SHARMA CMP, 71938-7 #### [facility] ([id number]) [address] [place] [address] Lymphocytes (Bld) [#/Vol] 1.2 10*3/uL Normal 1.0-3.5 [facility] Comment on above: Performed By: #### Thais SHARMA CMP, 97897-1 #### [facility] ([id number]) [address] [place] [address] Lymphocytes/100 WBC (Bld) 17.7 % Normal [facility] Comment on above: Performed By: #### C ZACHARY, CMP, 57491-7 #### [facility] ([id number]) [address] [place] [address] MCH (RBC) [Entitic mass] 31.6 pg Normal 27-34 [facility] Comment on above: Performed By: #### C BCA, CMP, 32617-4 #### [facility] ([id number]) [address] [place] [address] MCHC (RBC) [Mass/Vol] 35.3 g/dL Normal 32-36 [facility] Comment on above: Performed By: #### C BCA, CMP, 13474-3 #### [facility] ([id number]) [address] [place] [address] MCV (RBC) [Entitic vol] 90 fL Normal 80-100 [facility] Comment on above: Performed By: #### C BCA, CMP, 28737-2 #### [facility] ([id number]) [address] [place] [address] Monocytes (Bld) [#/Vol] 0.4 10*3/uL Normal 0-0.9 [facility] Comment on above: Performed By: #### C BCA, CMP, 24373-5 #### [facility] ([id number]) [address] [place] [address] Monocytes/100 WBC (Bld) 5.2 % Normal [facility] Comment on above: Performed By: #### C BCA, CMP, 68303-1 #### [facility] ([id number]) [address] [place] [address] Neutrophils/100 WBC (Bld) 76.2 % Normal [facility] Comment on above: Performed By: #### C BCA, CMP, 04249-5 #### [facility] ([id number]) [address] [place] [address] Platelet mean volume (Bld) [Entitic vol] 7.6 fL Normal 7-12 [facility] Comment on above: Performed By: #### C BCA, CMP, 01618-9 #### [facility] ([id number]) [address] [place] [address] Platelets (Bld) [#/Vol] 280 10*3/uL Normal 150-450 [facility] Comment on above: Performed By: #### C BCA, CMP, 06309-4 #### [facility] ([id number]) [address] [place] [address] RBC COUNT 2.48 X10E12/L Low 4.10-5.70 [facility] Comment on above: Performed By: #### C BCA, CMP, 48232-4 #### [facility] ([id number]) [address], [facility] [address] [place] [address] WBC (Bld) [#/Vol] 6.8 10*3/uL Normal 4.0-11.[address] [facility] Comment on above: Performed By: #### C BCA, CMP, 11765-3 #### [facility] ([id number]) [address] [place] [address] COMPREHENSIVE METABOLIC PANE [place] 04-11-2024 Albumin [Mass/Vol] 3.7 g/dL Normal 3.2-5.[address] [facility] Comment on above: Performed By: #### C BCA, CMP, 49810-0 #### [facility] ([id number]) [address] [place] [address] ALP [Catalytic activity/Vol] 52 U/L Normal 39-130 [facility] Comment on above: Performed By: #### C BCA, CMP, 66029-0 #### [facility] ([id number]) [address] [address] [place] [address] ALT [Catalytic activity/Vol] 9 U/L Normal 0-40 [facility] Comment on above: Performed By: #### C BCA, CMP, 76799-0 #### [facility] ([id number]) [address] [place] [address] Anion gap [Moles/Vol] 8 mmol/L Normal 5-15 [facility] Comment on above: Performed By: #### C ZACHARY CMP, 15286-9 #### [facility] ([id number]) [address] [place] [address] AST [Catalytic activity/Vol] 17 U/L Normal 0-41 [facility] Comment on above: Performed By: #### C ZACHARY, CMP, 28088-6 #### [facility] ([id number]) [address] [place] [address] Bilirubin [Mass/Vol] 0.5 mg/dL Normal 0.3-1.2 [facility] Comment on above: Performed By: #### Thais SHARMA, CMP, 99592-0 #### [facility] ([id number]) [address] [place] [address] Calcium [Mass/Vol] 8.5 mg/dL Normal 8.5-10.[address] [facility] Comment on above: Performed By: #### C ZACHARY CMP, 23094-0 #### [facility] ([id number]) [address] [place] [address] Chloride [Moles/Vol] 110 mmol/L High 98-109 [facility] Comment on above: Performed By: #### Thais SHARMA CMP, 04648-4 #### [facility] ([id number]) [address] [place] [address] CO2 [Moles/Vol] 25 mmol/L Normal 22-32 [facility] Comment on above: Performed By: #### C ZACHARY, CMP, 72747-7 #### [facility] ([id number]) [address] [place] [address] Creatinine [Mass/Vol] 0.72 mg/dL Normal 0.60-1.30 [facility] Comment on above: Result Comment: METH OD TRACEABLE TO IDMS STANDARD Performed By: #### C BCA, CMP, 37884-8 #### [facility] ([id number]) [address] [place] [address] eGFR (CKD-EPI) NON-RACE DEPENDENT >90 Normal >59 [facility] Comment on above: Result Comment: Reported eGFR is based on the CKD-EPI 2020 equation that does not use a race coefficient. Performed By: #### C BCA, CMP, 06804-8 #### [facility] ([id number]) [address] [place] [address] Glucose [Mass/Vol] 175 mg/dL High 65-[address] [facility] Comment on above: Performed By: #### C BCA, CMP, 40909-4 #### [facility] ([id number]) [address] [place] [address] Potassium [Moles/Vol] 4.2 mmol/L Normal 3.5-5.0 [facility] Comment on above: Result Comment: SPEC IMEN HEMOLYZED, RESULTS INCREASED MODERATELY HEMOLYZED Performed By: #### C BCA, CMP, 05506-2 #### [facility] ([id number]) [address] [place] [address] Protein [Mass/Vol] 5.6 g/dL Low 6.0-8.[address] [facility] Comment on above: Performed By: #### C BCA, CMP, 58127-7 #### [facility] ([id number]) [address] [place] [address] Sodium [Moles/Vol] 143 mmol/L Normal 134-[address] [facility] Comment on above: Performed By: #### C BCA, CMP, 15320-3 #### [facility] ([id number]) [address] [place] [address] Urea nitrogen [Mass/Vol] 41 mg/dL High 5-27 [facility] Comment on above: Performed By: #### Thais SHARMA, NAHOMY, 30344-6 #### [facility] ([id number]) [address] [place] [address] Glucose Glucometer (BldC) [M ass/Vol]on 04-11-2024 Glucose [Mass/Vol] 254 mg/dL High 65-[address] [facility] Glucose [Mass/Vol] 282 mg/dL High 65-[address] [facility] Glucose [Mass/Vol] 213 mg/dL High 65-[address] [facility] Glucose [Mass/Vol] 236 mg/dL High 65-[address] [facility] Glucose [Mass/Vol] 192 mg/dL High 65-[address] [facility] Glucose [Mass/Vol] 187 mg/dL High 65-[address] [facility] aPTT Coag (PPP) [Time]on aPTT Coag (Bld) [Time] 29 s Normal 26-37 Pr [facility] Comment on above: Performed By: #### C ZACHARY, NAHOMY, 96844-8 #### [facility] ([id number]) [address] [place] [address] CBC AND AUTO DIFFon 04-10- 24 ABSOLUTE BASOPHIL 0.0 X10E9/L Normal 0.0-0.[address] [facility] Comment on above: Performed By: #### Thais SHARMA, CMP #### [facility] ([id number]) [address] [place] [address] ABSOLUTE NEUTROPHIL 6.1 X10E9/L Normal 1.5-6.6 [facility] Comment on above: Performed By: #### Thais SHARMA, CMP #### [facility] ([id number]) [address] [place] [address] Basophils/100 WBC (Bld) 0.3 % Normal [facility] Comment on above: Performed By: #### C BCA, CMP #### [facility] ([id number]) [address] [address] [place] [address] Eosinophils (Bld) [#/Vol] 0.0 10*3/uL Normal 0.0-0.4 [facility] Comment on above: Performed By: #### C BCA, CMP #### [facility] ([id number]) [address] [address] Eosinophils/100 WBC (Bld) 0.1 % Normal [facility] Comment on above: Performed By: #### C ZACHARY, CMP #### [facility] ([id number]) [address] [address] Erythrocyte distribution width (RBC) [Ratio] 14.3 % Normal 11.5-15.0 [facility] Comment on above: Performed By: #### C ZACHARY, CMP #### [facility] ([id number]) [address] [address] [place] [address] Hematocrit (Bld) [Volume fraction] 22.7 % Low 39-49 [facility] Comment on above: Performed By: #### C BCA, CMP #### [facility] ([id number]) [address] [address] [place] [address] Hemoglobin (Bld) [Mass/Vol] 7.9 g/dL Low 13.0-17.0 [facility] Comment on above: Performed By: #### C BCA, CMP #### [facility] ([id number]) [address] [address] Lymphocytes (Bld) [#/Vol] 1.1 10*3/uL Normal 1.0-3.5 [facility] Comment on above: Performed By: #### C BCA, CMP #### [facility] ([id number]) [address] [place] [address] Lymphocytes/100 WBC (Bld) 14.5 % Normal [facility] Comment on above: Performed By: #### C BCA, CMP #### [facility] ([id number]) [address] [place] [address] MCH (RBC) [Entitic mass] 31.2 pg Normal 27-34 [facility] Comment on above: Performed By: #### C BCA, CMP #### [facility] ([id number]) [address] [place] [address] MCHC (RBC) [Mass/Vol] 35.1 g/dL Normal 32-36 [facility] Comment on above: Performed By: #### C BCA, CMP #### [facility] ([id number]) [address] [place] [address] MCV (RBC) [Entitic vol] 89 fL Normal 80-100 [facility] Comment on above: Performed By: #### C BCA, CMP #### [facility] ([id number]) [address] [place] [address] Monocytes (Bld) [#/Vol] 0.3 10*3/uL Normal 0-0.9 [facility] Comment on above: Performed By: #### C BCA, CMP #### [facility] ([id number]) [address] [place] [address] Monocytes/100 WBC (Bld) 4.3 % Normal [facility] Comment on above: Performed By: #### C BCA, CMP #### [facility] ([id number]) [address] [place] [address] Neutrophils/100 WBC (Bld) 80.8 % Normal [facility] Comment on above: Performed By: #### C BCA, CMP #### [facility] ([id number]) [address] [place] [address] Platelet mean volume (Bld) [Entitic vol] 7.2 fL Normal 7-12 [facility] Comment on above: Performed By: #### C BCA, CMP #### [facility] ([id number]) [address] [place] [address] Platelets (Bld) [#/Vol] 285 10*3/uL Normal 150-450 [facility] Comment on above: Performed By: #### C BCA, CMP #### [facility] ([id number]) [address] [place] [address] RBC COUNT 2.55 X10E12/L Low 4.10-5.70 [facility] Comment on above: Performed By: #### C BCA, CMP #### [facility] ([id number]) [address] [place] [address] WBC (Bld) [#/Vol] 7.6 10*3/uL Normal 4.0-11.[address] [facility] Comment on above: Performed By: #### C BCA, CMP #### [facility] ([id number]) [address] [place] [address] ABSOLUTE BASOPHIL 0.0 X10E9/L Normal 0.0-0.2 [facility] Comment on above: Performed By: #### P INR, 16846-1, 25648-1, CBCA, 48621-8, CMP, 4548-4, 6873-4 #### [facility] ([id number]) [address] [place] [address], [place] [address] #### HA1C #### [facility] ([id number]) [address] [place] [address] ABSOLUTE NEUTROPHIL 6.7 X10E9/L High 1.5-6.6 [facility] Comment on above: Performed By: #### P INR, 24302-8, 16280-0, CBCA, 49319-2, CMP, 4548-4, 6873-4 #### [facility] ([id number]) [address] [place] [address] #### HA1C #### [facility] ([id number]) [address] [place] [address] Basophils/100 WBC (Bld) 0.3 % Normal [facility] Comment on above: Performed By: #### P INR, 98310-6, 48813-9, CBCA, 12610-8, CMP, 4548-4, 6873-4 #### [facility] ([id number]) [address] [place] [address] #### HA1C #### [facility] ([id number]) [address] [place] [address] Eosinophils (Bld) [#/Vol] 0.0 10*3/uL Normal 0.0-0.4 [facility] Comment on above: Performed By: #### P INR, 90531-9, 90190-7, CBCA, 06459-0, CMP, 4548-4, 6873-4 #### [facility] ([id number]) [address] [place] [id number] #### HA1C #### [facility] ([id number]) [address], [address] [place] [address] Eosinophils/100 WBC (Bld) 0.1 % Normal [facility] Comment on above: Performed By: #### P INR, 57856-8, 41703-9, CBCA, 36810-8, CMP, 4548-4, 6873-4 #### [facility] ([id number]) [address] [place] [address] #### HA1C #### [facility] ([id number]) [address], [address] [place] [address] Erythrocyte distribution width (RBC) [Ratio] 14.3 % Normal 11.5-15.0 [facility] Comment on above: Performed By: #### P INR, 37630-6, 14279-7, CBCA, 65958-9, CMP, 4548-4, 6873-4 #### [facility] ([id number]) [address] [place] [address] #### HA1C #### [facility] ([id number]) [address] [facility] [address] [place] [address] Hematocrit (Bld) [Volume fraction] 25.1 % Low 39-49 [facility] Comment on above: Performed By: #### P INR, 95539-6, 55151-6, CBCA, 36040-1, CMP, 4548-4, 6873-4 #### [facility] ([id number]) [address] [place] [address] #### HA1C #### [facility] ([id number]) [address] [facility], [address] [address] Hemoglobin (Bld) [Mass/Vol] 8.7 g/dL Low 13.0-17.0 [facility] Comment on above: Performed By: #### P INR, 74345-9, 81241-1, CBCA, 94779-8, CMP, 4548-4, 6873-4 #### [facility] ([id number]) [address] [place] [address] #### HA1C #### [facility] ([id number]) [address] [facility] [address] [place] [address] Lymphocytes (Bld) [#/Vol] 1.3 10*3/uL Normal 1.0-3.5 [facility] Comment on above: Performed By: #### P INR, 91750-1, 50065-2, CBCA, 78906-2, CMP, 4548-4, 6873-4 #### [facility] ([id number]) [address] [place] [address] #### HA1C #### [facility] ([id number]) [address] [facility], [address] [place] [address] Lymphocytes/100 WBC (Bld) 15.7 % [facility] [facility] Comment on above: Performed By: #### P INR, 79319-0, 20359-4, CBCA, 37790-7, CMP, 4548-4, 6873-4 #### [facility] ([id number]) [address] [place] [address] 95438 #### HA1C #### [facility] ([id number]) [address] [facility], [address] [place] [address] MCH (RBC) [Entitic mass] 30.6 pg Normal 27-34 [facility] Comment on above: Performed By: #### P INR, 04741-0, 47764-7, CBCA, 15193-5, CMP, 4548-4, 6873-4 #### [facility] ([id number]) [address] [place] [address] 88237 #### HA1C #### [facility] ([id number]) [address] [facility], [address] [place] [address] MCHC (RBC) [Mass/Vol] 34.8 g/dL Normal 32-36 [facility] Comment on above: Performed By: #### P INR, 46885-1, 31624-6, CBCA, 34407-6, CMP, 4548-4, 6873-4 #### [facility] ([id number]) [address] [place] [address] 93534 #### HA1C #### [facility] ([id number]) [address], [address] [place] [address] MCV (RBC) [Entitic vol] 88 fL Normal 80-100 [facility] Comment on above: Performed By: #### P INR, 76146-3, 09927-7, CBCA, 44808-5, CMP, 4548-4, 6873-4 #### [facility] ([id number]) [address] [place] [address] 86094 #### HA1C #### [facility] ([id number]) [address] [facility], [address] [place] [address] Monocytes (Bld) [#/Vol] 0.4 10*3/uL Normal 0-0.9 [facility] Comment on above: Performed By: #### P INR, 66681-8, 12477-6, CBCA, 56453-7, CMP, 4548-4, 6873-4 #### [facility] ([id number]) [address] [place] [address] 30263 #### HA1C #### [facility] ([id number]) [address], [address] [place] [address] Monocytes/100 WBC (Bld) 5.0 % Normal [facility] Comment on above: Performed By: #### P INR, 30768-7, 33317-8, CBCA, 21153-7, CMP, 4548-4, 6873-4 #### [facility] ([id number]) [address] [place] [address] 29173 #### HA1C #### [facility] ([id number]) [address], [address] [place] [address] Neutrophils/100 WBC (Bld) 78.9 % Normal [facility] Comment on above: Performed By: #### P INR, 85211-1, 55645-1, CBCA, 51134-1, CMP, 4548-4, 6873-4 #### [facility] ([id number]) [address] [place] [address] 67384 #### HA1C #### [facility] ([id number]) [address], [address] [place] [address] Platelet mean volume (Bld) [Entitic vol] 7.4 fL Normal 7-12 [facility] Comment on above: Performed By: #### P INR, 60840-1, 35609-9, CBCA, 45438-7, CMP, 4548-4, 6873-4 #### [facility] ([id number]) [address] [place] [address] 17799 #### HA1C #### [facility] ([id number]) [address], [address] [place] [address] Platelets (Bld) [#/Vol] 285 10*3/uL Normal 150-450 [facility] Comment on above: Performed By: #### P INR, 78780-8, 33262-6, CBCA, 46590-4, CMP, 4548-4, 6873-4 #### [facility] ([id number]) [address] [place] [address] 37878 #### HA1C #### [facility] ([id number]) [address], [address] [place] [address] RBC COUNT 2.86 X10E12/L Low 4.10-5.70 [facility] Comment on above: Performed By: #### P INR, 56112-3, 65982-4, CBCA, 15407-8, CMP, 4548-4, 6873-4 #### [facility] ([id number]) [address] [place] [address] 56116 #### HA1C #### [facility] ([id number]) [address], [address] [place] [address] WBC (Bld) [#/Vol] 8.5 10*3/uL Normal 4.0-11.0 [facility] Comment on above: Performed By: #### P INR, 62292-2, 58084-6, CBCA, 73634-5, CMP, 4548-4, 6873-4 #### [facility] ([id number]) [address] [place] [address], [place] [address] #### HA1C #### [facility] ([id number]) [address], [address] [place] [address] COMPREHENSIVE METABOLIC PANE [place] 04-10-2024 Albumin [Mass/Vol] 3.9 g/dL Normal 3.2-5.[address] [facility] Comment on above: Performed By: #### C BCA, CMP #### [facility] ([id number]) [address], [address] [place] [address] ALP [Catalytic activity/Vol] 54 U/L Normal 39-130 [facility] Comment on above: Performed By: #### C BCA, CMP #### [facility] ([id number]) [address], [address] [place] [address] ALT [Catalytic activity/Vol] 8 U/L Normal 0-40 [facility] Comment on above: Performed By: #### C BCA, CMP #### [facility] ([id number]) [address], [address] [place] [address] Anion gap [Moles/Vol] 9 mmol/L Normal 5-[address] [facility] Comment on above: Performed By: #### C BCA, CMP #### [facility] ([id number]) [address], [address] [place] [address] AST [Catalytic activity/Vol] 10 U/L Normal 0-41 [facility] Comment on above: Performed By: #### C BCA, CMP #### [facility] ([id number]) [address] [address] [place] [address] Bilirubin [Mass/Vol] 0.6 mg/dL Normal 0.3-1.2 [facility] Comment on above: Performed By: #### C BCA, CMP #### [facility] ([id number]) [address] [address] [place] [address] Calcium [Mass/Vol] 8.8 mg/dL Normal 8.5-10.[address] [facility] Comment on above: Performed By: #### C BCA, CMP #### [facility] ([id number]) [address] [address] Chloride [Moles/Vol] 109 mmol/L Normal 98-109 [facility] Comment on above: Performed By: #### C BCA, CMP #### [facility] ([id number]) [address] [address] CO2 [Moles/Vol] 23 mmol/L Normal 22-32 [facility] Comment on above: Performed By: #### C BCA, CMP #### [facility] ([id number]) [address] [address] Creatinine [Mass/Vol] 0.83 mg/dL Normal 0.60-1.30 [facility] Comment on above: Result Comment: METH OD TRACEABLE TO IDMS STANDARD Performed By: #### C BCA, CMP #### [facility] ([id number]) [address] [address] [place] [address] eGFR (CKD-EPI) NON-RACE DEPENDENT >90 Normal >59 [facility] Comment on above: Result Comment: Reported eGFR is based on the CKD-EPI 2020 equation that does not use a race coefficient. Performed By: #### C BCA, CMP #### [facility] ([id number]) [address] [place] [address] Glucose [Mass/Vol] 193 mg/dL High 65-[address] [facility] Comment on above: Performed By: #### C BCA, CMP #### [facility] ([id number]) [address], [address] [place] [address] Potassium [Moles/Vol] 4.1 mmol/L Normal 3.5-5.[address] [facility] Comment on above: Performed By: #### C BCA, CMP #### [facility] ([id number]) [address], [address] [place] [address] Protein [Mass/Vol] 5.7 g/dL Low 6.0-8.[address] [facility] Comment on above: Performed By: #### C BCA, CMP #### [facility] ([id number]) [address], [address] [place] [address] Sodium [Moles/Vol] 141 mmol/L Normal 134-[address] [facility] Comment on above: Performed By: #### C BCA, CMP #### [facility] ([id number]) [address], [address] [place] [address] Urea nitrogen [Mass/Vol] 54 mg/dL High 5-27 [facility] Comment on above: Performed By: #### C BCA, CMP #### [facility] ([id number]) [address], [address] [place] [address] Albumin [Mass/Vol] 3.8 g/dL Normal 3.2-5.3 [facility] Comment on above: Performed By: #### P INR, 07152-5, 96902-0, CBCA, 32815-0, CMP, 4548-4, 6873-4 #### [facility] ([id number]) [address] [place] [address], [place] [address] #### HA1C #### [facility] ([id number]) [address] [facility], [address] [place] [address] ALP [Catalytic activity/Vol] 55 U/L Normal 39-130 [facility] Comment on above: Performed By: #### P INR, 23169-6, 86142-4, CBCA, 45278-9, CMP, 4548-4, 6873-4 #### [facility] ([id number]) [address] [place] [address] 23578 #### HA1C #### [facility] ([id number]) [address] [facility], [address] [place] [address] ALT [Catalytic activity/Vol] 13 U/L Normal 0-40 [facility] Comment on above: Performed By: #### P INR, 82874-9, 64088-0, CBCA, 69272-7, CMP, 4548-4, 6873-4 #### [facility] ([id number]) [address] [place] [address] 97951 #### HA1C #### [facility] ([id number]) [address] [place] [address], [address] [place] [address] Anion gap [Moles/Vol] 11 mmol/L Normal 5-15 [facility] Comment on above: Performed By: #### P INR, 36674-1, 70679-9, CBCA, 15186-6, CMP, 4548-4, 6873-4 #### [facility] ([id number]) [address] [place] [address] 31168 #### HA1C #### [facility] ([id number]) [address] [place] [address], [address] [place] [address] AST [Catalytic activity/Vol] 14 U/L Normal 0-41 [facility] Comment on above: Performed By: #### P INR, 74913-1, 69401-3, CBCA, 53068-5, CMP, 4548-4, 6873-4 #### [facility] ([id number]) [address] [place] [address] 94307 #### HA1C #### [facility] ([id number]) [address], [address] [place] [address] Bilirubin [Mass/Vol] 0.4 mg/dL Normal 0.3-1.2 [facility] Comment on above: Performed By: #### P INR, 00029-7, 17726-4, CBCA, 92357-6, CMP, 4548-4, 6873-4 #### [facility] ([id number]) [address] [place] [address] 31706 #### HA1C #### [facility] ([id number]) [address] [facility], [address] [place] [address] Calcium [Mass/Vol] 8.6 mg/dL Normal 8.5-10.5 [facility] Comment on above: Performed By: #### P INR, 53976-0, 02712-8, CBCA, 27443-6, CMP, 4548-4, 6873-4 #### [facility] ([id number]) [address] [place] [address] 59988 #### HA1C #### [facility] ([id number]) [address] [facility], [address] [place] [address] Chloride [Moles/Vol] 106 mmol/L Normal 98-109 [facility] Comment on above: Performed By: #### P INR, 67646-1, 31578-4, CBCA, 01526-2, CMP, 4548-4, 6873-4 #### [facility] ([id number]) [address] [place] [address] 62538 #### HA1C #### [facility] ([id number]) [address] [facility], [address] [place] [address] CO2 [Moles/Vol] 20 mmol/L Low 22-32 [facility] Comment on above: Performed By: #### P INR, 87991-8, 25228-8, CBCA, 50410-9, CMP, 4548-4, 6873-4 #### [facility] ([id number]) [address] [place] [address] 48597 #### HA1C #### [facility] ([id number]) [address] [facility], [address] [place] [address] Creatinine [Mass/Vol] 1.02 mg/dL Normal 0.70-1.20 [facility] Comment on above: Result Comment: METH OD TRACEABLE TO IDMS STANDARD Performed By: #### P INR, 16097-6, 60363-2, CBCA, 11177-1, CMP, 4548-4, 6873-4 #### [facility] ([id number]) [address] [place] [address] 06296 #### HA1C #### [facility] ([id number]) [address] [facility], [address] [place] [address] GFR/1.73 sq M.predicted among non-blacks MDRD (S/P/Bld) [Vol rate/Area] 79 mL/min/{1.73_m2} Normal >59 [facility] Comment on above: Result Comment: Reported eGFR is based on the CKD-EPI 2020 equation that does not use a race coefficient. Performed By: #### P INR, 21001-2, 64962-1, CBCA, 73104-5, CMP, 4548-4, 6873-4 #### [facility] ([id number]) [address] [place] [address] 56687 #### HA1C #### [facility] ([id number]) [address] [facility], [address] [place] [address] Glucose [Mass/Vol] 195 mg/dL High 65-99 [facility] Comment on above: Performed By: #### P INR, 72673-5, 70855-2, CBCA, 87653-7, CMP, 4548-4, 6873-4 #### [facility] ([id number]) [address] [place] [address] 79354 #### HA1C #### [facility] ([id number]) [address] [facility], [address] [place] [address] Potassium [Moles/Vol] 4.1 mmol/L Normal 3.5-5.0 [facility] Comment on above: Performed By: #### P INR, 76287-6, 13062-2, CBCA, 40331-7, CMP, 4548-4, 6873-4 #### [facility] ([id number]) [address] [place] [address] 81556 #### HA1C #### [facility] ([id number]) [address] [facility], [address] [place] [address] Protein [Mass/Vol] 6.1 g/dL Normal 6.0-8.0 [facility] Comment on above: Performed By: #### P INR, 65129-7, 33999-8, CBCA, 51756-9, CMP, 4548-4, 6873-4 #### [facility] ([id number]) [address] [place] [address] 09639 #### HA1C #### [facility] ([id number]) [address] [facility], [address] [place] [address] Sodium [Moles/Vol] 137 mmol/L Normal 134-146 [facility] Comment on above: Performed By: #### P INR, 14833-5, 70167-4, CBCA, 99875-5, CMP, 4548-4, 6873-4 #### [facility] ([id number]) [address] [place] [address] 87884 #### HA1C #### [facility] ([id number]) [address] [place] [address] Urea nitrogen [Mass/Vol] 86 mg/dL High 5-27 [facility] Comment on above: Performed By: #### P INR, 58008-4, 91330-7, CBCA, 68718-2, CMP, 4548-4, 6873-4 #### [facility] ([id number]) [address] [place] [address], [place] [address] #### HA1C #### [facility] ([id number]) [address] [place] [address] CT BRAIN WO CONTon CT BRAIN WO [...] Jaramillo MD on 04/10/2024 2:20 PM Normal [facility] CT CTA CAROTIDon 04-10-2024 CT CTA CAROTID [...] supervision. Automated exposure control utilized. The [place] Symptomatic Carotid Endarterectomy Trial (NASCET) method for [...] Beatty MD on 04/10/2024 3:14 PM Normal [facility] CT CTA HEADon 04-10-2024 CT CTA HEAD [...] Beatty MD on 04/10/2024 2:51 PM Normal [facility] Glucose Glucometer (BldC) [M ass/Vol]on 04-10-2024 Glucose [Mass/Vol] 188 mg/dL High 65-[address] [facility] Glucose [Mass/Vol] 233 mg/dL High 65-[address] [facility] Glucose [Mass/Vol] 232 mg/dL High 65-99 [facility] Glucose [Mass/Vol] 232 mg/dL High 65-99 [facility] Glucose [Mass/Vol] 205 mg/dL High 65-99 [facility] MAGNESIUMon 04-10-2024 Magnesium [Mass/Vol] 2.3 mg/dL Normal 1.8-2.6 [facility] Comment on above: Performed By: #### P INR, 87427-5, 10366-0, CBCA, 45948-6, CMP, 4548-4, 6873-4 #### [facility] ([id number]) [address] [place] [address] 03266 #### HA1C #### [facility] ([id number]) [address] [facility], [address] [place] [address] PHOSPHORUSon 04-10-2024 Phosphate [Mass/Vol] 4.2 mg/dL Normal 2.4-4.9 [facility] Comment on above: Performed By: #### P INR, 64924-1, 60187-6, CBCA, 17372-4, CMP, 4548-4, 6873-4 #### [facility] ([id number]) [address] [place] [address] 84887 #### HA1C #### [facility] ([id number]) [address] [facility], [address] [place] [address] URINALYSISon 04-10-2024 Bilirubin Ql (U) Negative Normal NEG [facility] Comment on above: Performed By: #### U A #### [facility] ([id number]) [address] [facility], [address] [place] [address] BLOOD/HGB Negative Normal NEG [facility] Comment on above: Performed By: #### U A #### [facility] ([id number]) [address], [address] [place] [address] Color (U) YELLOW Normal YELLOW [facility] Comment on above: Performed By: #### U A #### [facility] ([id number]) [address], [address] [place] [address] Glucose Ql (U) Negative Normal NEG [facility] Comment on above: Performed By: #### U A #### [facility] ([id number]) [address], [address] [place] [address] Ketones Ql (U) Negative Normal NEG [facility] Comment on above: Performed By: #### U A #### [facility] ([id number]) [address], [address] [place] [address] Leukocyte esterase Test strip Ql (U) Negative Normal NEG [facility] Comment on above: Performed By: #### U A #### [facility] ([id number]) [address], [address] [place] [address] Nitrite Ql (U) Negative Normal NEG [facility] Comment on above: Performed By: #### U A #### [facility] ([id number]) [address], [address] [place] [address] pH (U) 5.5 [pH] Normal 5.0-8.5 [facility] Comment on above: Performed By: #### U A #### [facility] ([id number]) [address] [place] [address] Protein Ql (U) Negative Normal NEG [facility] Comment on above: Performed By: #### U A #### [facility] ([id number]) [address], [address] [place] [address] Specific gravity (U) [Rel density] 1.039 High 1.003-1.035 [facility] Comment on above: Performed By: #### U A #### [facility] ([id number]) [address], [address] [address] TURBIDITY CLEAR Normal CLEAR [facility] Comment on above: Performed By: #### U A #### [facility] ([id number]) [address] [address] Urinalysis dipstick W Reflex Microscopic panel (U) URINE RECEIVED WITHOUT PRESERVATIVE-DELAYS IN TRANSPORT MAY AFFECT RESULTS.INTERPRET WITH CAUTION AND CLINICAL CORRELATION IS RECOMMENDED. Normal [facility] Comment on above: Performed By: #### U A #### [facility] ([id number]) [address], [address] [address] Urobilinogen (U) [Mass/Vol] mg/dL Normal <1.1 [facility] Comment on above: Performed By: #### U A #### [facility] ([id number]) [address] [address] BASIC METABOLIC PANLon 04-09 Anion gap [Moles/Vol] 12 mmol/L Normal 5-15 [facility] Comment on above: Performed By: #### P INR, 61419-1, 47080-0, CBCA, 40928-2, CMP, 4548-4, 6873-4 #### [facility] ([id number]) [address] [place] [address], [place] [address] #### HA1C #### [facility] ([id number]) [address] [address] Calcium [Mass/Vol] 8.4 mg/dL Low 8.5-10.5 [facility] Comment on above: Performed By: #### P INR, 33810-0, 55263-9, CBCA, 67888-6, CMP, 4548-4, 6873-4 #### [facility] ([id number]) [address] [place] [address] #### HA1C #### [facility] ([id number]) [address], [address] [place] [address] Chloride [Moles/Vol] 102 mmol/L Normal 98-109 [facility] Comment on above: Performed By: #### P INR, 63122-5, 12171-7, CBCA, 52303-5, CMP, 4548-4, 6873-4 #### [facility] ([id number]) [address] [place] [address] 33867 #### HA1C #### [facility] ([id number]) [address] [facility], [address] [place] [address] CO2 [Moles/Vol] 17 mmol/L Low 22-32 [facility] Comment on above: Performed By: #### P INR, 36462-3, 71827-7, CBCA, 75846-5, CMP, 4548-4, 6873-4 #### [facility] ([id number]) [address] [place] [address] #### HA1C #### [facility] ([id number]) [address], [address] [place] [address] Creatinine [Mass/Vol] 1.49 mg/dL High 0.70-1.20 [facility] Comment on above: Result Comment: METH OD TRACEABLE TO IDMS STANDARD Performed By: #### P INR, 26953-1, 71617-8, CBCA, 55828-3, CMP, 4548-4, 6873-4 #### [facility] ([id number]) [address] [place] [address] #### HA1C #### [facility] ([id number]) [address], [address] [place] [address] GFR/1.73 sq M.predicted among non-blacks MDRD (S/P/Bld) [Vol rate/Area] 50 mL/min/{1.73_m2} Low >59 [facility] Comment on above: Result Comment: Reported eGFR is based on the CKD-EPI 2020 equation that does not use a race coefficient. Performed By: #### P INR, 50069-1, 52596-6, CBCA, 67870-8, CMP, 4548-4, 6873-4 #### [facility] ([id number]) [address] [place] [address] #### HA1C #### [facility] ([id number]) [address] [facility], [address] [place] [address] Glucose [Mass/Vol] 328 mg/dL High 65-99 [facility] Comment on above: Performed By: #### P INR, 36727-8, 92375-4, CBCA, 34879-1, CMP, 4548-4, 6873-4 #### [facility] ([id number]) [address] [place] [address] #### HA1C #### [facility] ([id number]) [address], [address] [place] [address] Potassium [Moles/Vol] 4.7 mmol/L Normal 3.5-5.0 [facility] Comment on above: Performed By: #### P INR, 85616-4, 48968-3, CBCA, 39865-9, CMP, 4548-4, 6873-4 #### [facility] ([id number]) [address] [place] [address] 240[address] #### HA1C #### [facility] ([id number]) [address], [address] [place] [address] Sodium [Moles/Vol] 131 mmol/L Low 134-146 [facility] Comment on above: Performed By: #### P INR, 87402-2, 68143-5, CBCA, 64413-8, CMP, 4548-4, 6873-4 #### [facility] ([id number]) [address] [place] [address] #### HA1C #### [facility] ([id number]) [address] [place] [address], [address] [place] [address] Urea nitrogen [Mass/Vol] 112 mg/dL High 5-27 [facility] Comment on above: Performed By: #### P INR, 03799-1, 50204-3, CBCA, 73980-9, CMP, 4548-4, 6873-4 #### [facility] ([id number]) [address] [place] [address] #### HA1C #### [facility] ([id number]) [address] [place] [address], [address] [place] [address] CBC AND AUTO DIFFon 04-09- 24 ABSOLUTE BASOPHIL 0.0 X10E9/L Normal 0.0-0.2 [facility] Comment on above: Performed By: #### P INR, 01823-3, 79224-4, CBCA, 25369-5, CMP, 4548-4, 6873-4 #### [facility] ([id number]) [address] [place] [address] 49[address] #### HA1C #### [facility] ([id number]) [address] [place] [address], [address] [place] [address] ABSOLUTE NEUTROPHIL 8.5 X10E9/L High 1.5-6.6 [facility] Comment on above: Performed By: #### P INR, 97070-6, 46445-4, CBCA, 85169-5, CMP, 4548-4, 6873-4 #### [facility] ([id number]) [address] [place] [address] 59057 #### HA1C #### [facility] ([id number]) [address], [address] [place] [address] Basophils/100 WBC (Bld) 0.4 % Normal [facility] Comment on above: Performed By: #### P INR, 93539-4, 18271-1, CBCA, 61398-3, CMP, 4548-4, 6873-4 #### [facility] ([id number]) [address] [place] [address] 03268 #### HA1C #### [facility] ([id number]) [address] [facility], [address] [place] [address] Eosinophils (Bld) [#/Vol] 0.0 10*3/uL Normal 0.0-0.4 [facility] Comment on above: Performed By: #### P INR, 90106-2, 73356-1, CBCA, 67366-0, CMP, 4548-4, 6873-4 #### [facility] ([id number]) [address] [place] [address] 83586 #### HA1C #### [facility] ([id number]) [address], [address] [place] [address] Eosinophils/100 WBC (Bld) 0.1 % Normal [facility] Comment on above: Performed By: #### P INR, 69324-7, 24889-2, CBCA, 63322-2, CMP, 4548-4, 6873-4 #### [facility] ([id number]) [address] [place] [address] 36842 #### HA1C #### [facility] ([id number]) [address], [address] [place] [address] Erythrocyte distribution width (RBC) [Ratio] 13.9 % Normal 11.5-15.0 [facility] Comment on above: Performed By: #### P INR, 01374-8, 42354-6, CBCA, 39780-6, CMP, 4548-4, 6873-4 #### [facility] ([id number]) [address] [place] [address] 39746 #### HA1C #### [facility] ([id number]) [address] [facility], [address] [place] [address] Hematocrit (Bld) [Volume fraction] 28.3 % Low 39-49 [facility] Comment on above: Performed By: #### P INR, 16302-3, 11085-1, CBCA, 99827-8, CMP, 4548-4, 6873-4 #### [facility] ([id number]) [address] [place] [address] 11332 #### HA1C #### [facility] ([id number]) [address] [facility], [address] [place] [address] Hemoglobin (Bld) [Mass/Vol] 9.8 g/dL Low 13.0-17.0 [facility] Comment on above: Performed By: #### P INR, 59264-4, 51104-1, CBCA, 23329-1, CMP, 4548-4, 6873-4 #### [facility] ([id number]) [address] [place] [address] 53026 #### HA1C #### [facility] ([id number]) [address] [facility], [address] [place] [address] Lymphocytes (Bld) [#/Vol] 0.9 10*3/uL Low 1.0-3.5 [facility] Comment on above: Performed By: #### P INR, 86817-6, 55330-2, CBCA, 86495-6, CMP, 4548-4, 6873-4 #### [facility] ([id number]) [address] [place] [address] 08170 #### HA1C #### [facility] ([id number]) [address], [address] [place] [address] Lymphocytes/100 WBC (Bld) 9.0 % Normal [facility] Comment on above: Performed By: #### P INR, 51389-5, 03366-3, CBCA, 32129-6, CMP, 4548-4, 6873-4 #### [facility] ([id number]) [address] [place] [address] 49529 #### HA1C #### [facility] ([id number]) [address], [address] [place] [address] MCH (RBC) [Entitic mass] 30.9 pg Normal 27-34 [facility] Comment on above: Performed By: #### P INR, 56052-1, 54618-0, CBCA, 09588-4, CMP, 4548-4, 6873-4 #### [facility] ([id number]) [address] [place] [address] 65[address] #### HA1C #### [facility] ([id number]) [address], [address] [place] [address] MCHC (RBC) [Mass/Vol] 34.6 g/dL Normal 32-36 [facility] Comment on above: Performed By: #### P INR, 19929-4, 99231-3, CBCA, 32682-2, CMP, 4548-4, 6873-4 #### [facility] ([id number]) [address] [place] [address] 76587 #### HA1C #### [facility] ([id number]) [address], [address] [place] [address] MCV (RBC) [Entitic vol] 89 fL Normal 80-100 [facility] Comment on above: Performed By: #### P INR, 32069-8, 37442-1, CBCA, 86898-5, CMP, 4548-4, 6873-4 #### [facility] ([id number]) [address] [place] [address] 44592 #### HA1C #### [facility] ([id number]) [address], [address] [place] [address] Monocytes (Bld) [#/Vol] 0.3 10*3/uL Normal 0-0.9 [facility] Comment on above: Performed By: #### P INR, 51303-3, 04422-6, CBCA, 73580-4, CMP, 4548-4, 6873-4 #### [facility] ([id number]) [address] [place] [address] 75379 #### HA1C #### [facility] ([id number]) [address], [address] [place] [address] Monocytes/100 WBC (Bld) 3.2 % Normal [facility] Comment on above: Performed By: #### P INR, 81443-4, 40338-9, CBCA, 44201-0, CMP, 4548-4, 6873-4 #### [facility] ([id number]) [address] [place] [address] 21202 #### HA1C #### [facility] ([id number]) [address], [address] [place] [address] Neutrophils/100 WBC (Bld) 87.3 % Normal [facility] Comment on above: Performed By: #### P INR, 92046-4, 71844-1, CBCA, 07493-6, CMP, 4548-4, 6873-4 #### [facility] ([id number]) [address] [place] [address] 17930 #### HA1C #### [facility] ([id number]) [address], [address] [place] [address] Platelet mean volume (Bld) [Entitic vol] 8.1 fL Normal 7-12 [facility] Comment on above: Performed By: #### P INR, 00168-6, 15008-7, CBCA, 15930-9, CMP, 4548-4, 6873-4 #### [facility] ([id number]) [address] [place] [address] 04828 #### HA1C #### [facility] ([id number]) [address] [facility], [address] [place] [address] Platelets (Bld) [#/Vol] 330 10*3/uL Normal 150-450 [facility] Comment on above: Performed By: #### P INR, 58934-9, 37728-7, CBCA, 43417-8, CMP, 4548-4, 6873-4 #### [facility] ([id number]) [address] [place] [address] 22395 #### HA1C #### [facility] ([id number]) [address] [facility], [address] [place] [address] RBC COUNT 3.16 X10E12/L Low 4.10-5.70 [facility] Comment on above: Performed By: #### P INR, 47457-5, 30997-7, CBCA, 77828-2, CMP, 4548-4, 6873-4 #### [facility] ([id number]) [address] [place] [address] 45778 #### HA1C #### [facility] ([id number]) [address], [address] [place] [address] WBC (Bld) [#/Vol] 9.7 10*3/uL Normal 4.0-11.0 [facility] Comment on above: Performed By: #### P INR, 58572-6, 66046-3, CBCA, 68383-0, CMP, 4548-4, 6873-4 #### [facility] ([id number]) [address] [facility] [place], [place] [address] #### HA1C #### [facility] ([id number]) [address] [facility], [address] [place] [address] CT BRAIN WO CONT STROKE ALER Ton [...] is prominent in keeping with atrophy. The alba and white matter show right-sided periventricular changes [...] Clay MD on 04/09/2024 8:10 AM Normal [facility] CT CTA CAROTIDon 04-09-2024 CT CTA CAROTID [...] artery narrowing is assessed using the [place] Symptomatic Carotid Endarterectomy Trial (NASCET) method. Comparison: [...] Kenneth Rothman MD on 04/09/2024 8:34 AM [facility] CT CTA HEADon 04-09-2024 CT CTA HEAD [...] Thomson MD on 04/09/2024 8:39 AM Normal [facility] Glucose Glucometer (BldC) [M ass/Vol]on 04-09-2024 Glucose [Mass/Vol] 190 mg/dL High 65-99 [facility] Glucose [Mass/Vol] 222 mg/dL High 65-99 [facility] Glucose [Mass/Vol] 258 mg/dL High 65-99 [facility] HGB A1C (GLYCO-HGB)on 2023 Glucose [Mass/Vol] 169 mg/dL Normal [facility] Comment on above: Performed By: #### P INR, 17725-9, 77133-8, CBCA, 53188-4, CMP, 4548-4, 6873-4 #### [facility] ([id number]) [address] [place] [address], [place] [address] #### HA1C #### [facility] ([id number]) [address] [place] [address], [address] [place] [address] HbA1c (Bld) [Mass fraction] 7.5 % High 4.4-5.6 [facility] Comment on above: Result Comment: NOTE ADA Guidelines Result HgbA1c Normal : less than 5.7 % Prediabetes : 5.7 % to 6.4 % Diabetes : > 6.4 % Use with caution in patients with abnormal hemoglobin variants as the half-life of red blood cells and in vivo glycation rates are affected. Performed By: #### P INR, 10064-9, 92627-2, CBCA, 40968-5, CMP, 4548-4, 6873-4 #### [facility] ([id number]) [address] [place] [address] 71164 #### HA1C #### [facility] ([id number]) [address] [facility], [address] [place] [address] Lipid 1996 panelon 4 Cholesterol [Mass/Vol] 142 mg/dL Low 150-200 [facility] Comment on above: Performed By: #### P INR, 52081-1, 50098-1, CBCA, 10333-8, CMP, 4548-4, 6873-4 #### [facility] ([id number]) [address] [place] [address] 95012 #### HA1C #### [facility] ([id number]) [address] [facility], [address] [place] [address] Cholesterol in HDL [Mass/Vol] 27 mg/dL Low >39 [facility] Comment on above: Result Comment: HDL <40 mg/dL - High Risk HDL > or = 40mg/dL- Desirable HDL >60 mg/dL - Negative Risk Performed By: #### P INR, 29015-1, 54275-1, CBCA, 77507-9, CMP, 4548-4, 6873-4 #### [facility] ([id number]) [address] [place] [address] 74357 #### HA1C #### [facility] ([id number]) [address] [facility], [address] [place] [address] Cholesterol in LDL [Mass/Vol] 76 mg/dL Normal <130 [facility] Comment on above: Result Comment: LDL <100 mg/dL - Desirable LDL >160 mg/dL - High Risk Performed By: #### P INR, 91962-3, 70994-6, CBCA, 66780-9, CMP, 4548-4, 6873-4 #### [facility] ([id number]) [address] [place] [address] 03260 #### HA1C #### [facility] ([id number]) [address] [facility], [address] [place] [address] Cholesterol in VLDL [Mass/Vol] 39 mg/dL High 0-30 [facility] Comment on above: Performed By: #### P INR, 08225-9, 32155-0, CBCA, 58204-5, CMP, 4548-4, 6873-4 #### [facility] ([id number]) [address] [place] [address] 98776 #### HA1C #### [facility] ([id number]) [address] [facility], [address] [place] [address] CHOLESTEROL:HDL 5.3 High 1.0-5.0 [facility] Comment on above: Performed By: #### P INR, 10613-3, 22083-6, CBCA, 31052-3, CMP, 4548-4, 6873-4 #### [facility] ([id number]) [address] [place] [address] 21804 #### HA1C #### [facility] ([id number]) [address] [facility], [address] [place] [address] Triglyceride [Mass/Vol] 196 mg/dL High 27-150 [facility] Comment on above: Performed By: #### P INR, 78444-6, 12728-4, CBCA, 97180-0, CMP, 4548-4, 6873-4 #### [facility] ([id number]) [address] [facility], [place] [address] #### HA1C #### [facility] ([id number]) [address] [facility], [address] [place] [address] MR BRAIN WO CONTon 4 MR BRAIN [...] than peripheral volume loss. Bilateral hippocampal atrophy, [id number]-vhbxpmla in severity. Few scattered foci of T2/FLAIR [...] Emmanuel Pastrana on 04/09/2024 9:55 AM Normal [facility] PHOSPHORUSon 04-09-2024 Phosphate [Mass/Vol] 4.5 mg/dL Normal 2.4-4.9 [facility] Comment on above: Performed By: #### P INR, 20904-4, 99398-0, CBCA, 59838-2, CMP, 4548-4, 6873-4 #### [facility] ([id number]) [address] [place] [address] 56421 #### HA1C #### [facility] ([id number]) [address] [facility], [address] [place] [address] PROTIME AND INRon 04-09-2024 INR Coag (PPP) [Relative time] 1.2 {INR} High 0.8-1.1 [facility] Comment on above: Performed By: #### P INR, 66101-5, 43854-1, CBCA, 62409-5, CMP, 4548-4, 6873-4 #### [facility] ([id number]) [address] [place] [address] 46944 #### HA1C #### [facility] ([id number]) [address] [facility], [address] [place] [address] PT Coag (PPP) [Time] 14.0 s High 9.8-13.2 [facility] Comment on above: Result Comment: NEW REFERENCE RANGE Performed By: #### P INR, 63969-7, 73262-9, CBCA, 53409-2, CMP, 4548-4, 6873-4 #### [facility] ([id number]) [address] [place] [address] 48700 #### HA1C #### [facility] ([id number]) [address] [facility], [address] [place] [address] Troponin I.cardiac High sens itivity method [Mass/Vol]on 04-09-2024 3 HOUR TROP I, HIGH SENSITIVITY 113 ng/L High <21 [facility] Comment on above: Result Comment: Elevations of hs-Troponin may be due to causes other than myocardial ischemia. Recommend serial hs-Troponin testing be performed. For the initial evaluation and management of chest pain patients, refer to the algorithms linked below. Emergency Patient: [email or web address]& uh=acaea Inpatient: [email or web address]& uh=acaea Performed By: #### P INR, 93320-5, 30782-2, CBCA, 75964-5, CMP, 4548-4, 6873-4 #### [facility] ([id number]) [address] [place] [address] 02690 #### HA1C #### [facility] ([id number]) [address] [place] [address], [address] [place] [address] 1 HOUR TROP I, HIGH SENSITIVITY 60 ng/L High <21 [facility] Comment on above: Result Comment: Elevations of hs-Troponin may be due to causes other than myocardial ischemia. Recommend serial hs-Troponin testing be performed. For the initial evaluation and management of chest pain patients, refer to the algorithms linked below. Emergency Patient: [email or web address]& uh=acaea Inpatient: [email or web address]& uh=acaea Performed By: #### P INR, 49842-6, 34823-2, CBCA, 38361-7, CMP, 4548-4, 6873-4 #### [facility] ([id number]) [address] [place] [address] 91782 #### HA1C #### [facility] ([id number]) [address] [place] [address], [address] [place] [address] TROPONIN I, HIGH SENSITIVITY 38 ng/L High <21 [facility] Comment on above: Result Comment: Elevations of hs-Troponin may be due to causes other than myocardial ischemia. Recommend serial hs-Troponin testing be performed. For the initial evaluation and management of chest pain patients, refer to the algorithms linked below. Emergency Patient: [email or web address]& uh=acaea Inpatient: [email or web address]& uh=acaea Performed By: #### P INR, 15058-0, 66574-7, CBCA, 03707-7, CMP, 4548-4, 6873-4 #### [facility] ([id number]) [address] [place] [address], [place] [address] #### HA1C #### [facility] ([id number]) [address] [facility], [address] [place] [address] XR ANKLE LT MIN 3 VWSon 03-27 [...] Rothman MD on 04/09/2024 9:32 AM Normal [facility] XR KNEE LT 3 VWSon 4 XR [...] Keyes MD on 04/09/2024 9:29 AM Normal [facility] XR PELVIS 1 OR 2 VWSon 04-09 [...] Rothman MD on 04/09/2024 9:37 AM Normal [facility] XR WRIST RT MIN 3 VWSon 03-27 [...] Rothman MD on 04/09/2024 9:40 AM Normal [facility] aPTT Coag (PPP) [Time]on aPTT Coag (Bld) [Time] 24 s Low 26-37 [facility] Comment on above: Result Comment: NEW REFERENCE RANGE Performed By: #### P INR, 51311-4, 97477-2, CBCA, 66120-1, CMP, 4548-4, 6873-4 #### [facility] ([id number]) [address] [place] [address] 95089 #### HA1C #### [facility] ([id number]) [address] [facility], [address] [place] [address] XR Knee - right 4 Viewson Findings: [...] space and varus deformity. MANUALLY TRANSCRIBED RESULTS [facility] Radiology Study observation (narrative) [facility] BASIC METABOLIC PANLon 11-05 Anion gap [Moles/Vol] 11 mmol/L Normal 5-15 [facility] Comment on above: Performed By: #### P INR, 34697-1, 43777-8, CBCA, 71714-5, CMP, 4548-4, 6873-4 #### [facility] ([id number]) [address] [place] [address] 46732 #### HA1C #### [facility] ([id number]) [address] [facility], [address] [place] [address] Calcium [Mass/Vol] 8.8 mg/dL Normal 8.5-10.5 [facility] Comment on above: Performed By: #### P INR, 90291-0, 59004-2, CBCA, 73342-1, CMP, 4548-4, 6873-4 #### [facility] ([id number]) [address] [place] [address] 44459 #### HA1C #### [facility] ([id number]) [address], [address] [place] [address] Chloride [Moles/Vol] 96 mmol/L Low 98-109 [facility] Comment on above: Performed By: #### P INR, 64736-4, 72576-5, CBCA, 83720-9, CMP, 4548-4, 6873-4 #### [facility] ([id number]) [address] [place] [address] 18835 #### HA1C #### [facility] ([id number]) [address] [facility], [address] [place] [address] CO2 [Moles/Vol] 24 mmol/L Normal 22-32 [facility] Comment on above: Performed By: #### P INR, 37396-3, 90491-7, CBCA, 53364-4, CMP, 4548-4, 6873-4 #### [facility] ([id number]) [address] [place] [address] 14600 #### HA1C #### [facility] ([id number]) [address] [facility] [facility] [address] [place] [address] Creatinine [Mass/Vol] 0.75 mg/dL Normal 0.70-1.20 [facility] Comment on above: Result Comment: METH OD TRACEABLE TO IDMS STANDARD Performed By: #### P INR, 83341-1, 49452-8, CBCA, 98581-4, CMP, 4548-4, 6873-4 #### [facility] ([id number]) [address] [place] [address] 61651 #### HA1C #### [facility] ([id number]) [address] [facility], [facility] [address] [place] [address] eGFR (CKD-EPI) NON-RACE DEPENDENT >90 Normal >59 [facility] Comment on above: Result Comment: Reported eGFR is based on the CKD-EPI 2020 equation that does not use a race coefficient. Performed By: #### P INR, 88262-1, 01368-6, CBCA, 25746-3, CMP, 4548-4, 6873-4 #### [facility] ([id number]) [address] [place] [address] #### HA1C #### [facility] ([id number]) [address] [place] [address] Glucose [Mass/Vol] 263 mg/dL High 65-99 [facility] Comment on above: Performed By: #### P INR, 87024-7, 98783-8, CBCA, 77687-8, CMP, 4548-4, 6873-4 #### [facility] ([id number]) [address] [place] [address] #### HA1C #### [facility] ([id number]) [address], [address] [place] [address] Potassium [Moles/Vol] 4.2 mmol/L Normal 3.5-5.0 [facility] Comment on above: Performed By: #### P INR, 76654-2, 88775-5, CBCA, 33475-5, CMP, 4548-4, 6873-4 #### [facility] ([id number]) [address] [place] [address] #### HA1C #### [facility] ([id number]) [address] [place] [address] Sodium [Moles/Vol] 131 mmol/L Low 134-146 [facility] Comment on above: Performed By: #### P INR, 69736-0, 04576-6, CBCA, 78147-1, CMP, 4548-4, 6873-4 #### [facility] ([id number]) [address] [place] [address] #### HA1C #### [facility] ([id number]) [address] [place] [address] Urea nitrogen [Mass/Vol] 21 mg/dL Normal 5-27 [facility] Comment on above: Performed By: #### P INR, 78927-0, 20729-9, CBCA, 40121-7, CMP, 4548-4, 6873-4 #### [facility] ([id number]) [address] [place] [address] #### HA1C #### [facility] ([id number]) [address] [place] [address] CBC AND AUTO DIFFon 10-29-19 Erythrocyte distribution width (RBC) [Ratio] 13.8 % Normal 11.5-15.0 [facility] Comment on above: Performed By: #### P INR, 22651-6, 61402-9, CBCA, 64886-6, CMP, 4548-4, 6873-4 #### [facility] ([id number]) [address] [place] [address] #### HA1C #### [facility] ([id number]) [address] [place] [address] Hematocrit (Bld) [Volume fraction] 46.7 % Normal 39-49 [facility] Comment on above: Performed By: #### P INR, 69812-6, 91067-2, CBCA, 91814-6, CMP, 4548-4, 6873-4 #### [facility] ([id number]) [address] [place] [address] #### HA1C #### [facility] ([id number]) [address], [address] [place] [address] Hemoglobin (Bld) [Mass/Vol] 16.0 g/dL Normal 13.0-17.0 [facility] Comment on above: Performed By: #### P INR, 71428-5, 41140-1, CBCA, 99452-4, CMP, 4548-4, 6873-4 #### [facility] ([id number]) [address] [place] [address] 89375 #### HA1C #### [facility] ([id number]) [address] [facility], [address] [place] [address] LYMPHOCYTE, ATYPICAL 8.8 % Normal [facility] Comment on above: Performed By: #### P INR, 42102-4, 29990-1, CBCA, 32905-2, CMP, 4548-4, 6873-4 #### [facility] ([id number]) [address] [place] [address] 33639 #### HA1C #### [facility] ([id number]) [address] [facility], [address] [place] [address] Lymphocytes (Bld) [#/Vol] 1.9 10*3/uL Normal 1.0-3.5 [facility] Comment on above: Performed By: #### P INR, 74865-1, 49878-5, CBCA, 41844-7, CMP, 4548-4, 6873-4 #### [facility] ([id number]) [address] [place] [address] 71819 #### HA1C #### [facility] ([id number]) [address] [facility], [address] [place] [address] Lymphocytes/100 WBC (Bld) 46.1 % Normal [facility] Comment on above: Performed By: #### P INR, 59558-4, 72539-8, CBCA, 17916-5, CMP, 4548-4, 6873-4 #### [facility] ([id number]) [address] [place] [address] 03845 #### HA1C #### [facility] ([id number]) [address], [address] [place] [address] MCH (RBC) [Entitic mass] 29.4 pg Normal 27-34 [facility] Comment on above: Performed By: #### P INR, 48050-0, 53034-4, CBCA, 10317-7, CMP, 4548-4, 6873-4 #### [facility] ([id number]) [address] [place] [address] 53571 #### HA1C #### [facility] ([id number]) [address] [facility], [address] [place] [address] MCHC (RBC) [Mass/Vol] 34.2 g/dL Normal 32-36 [facility] Comment on above: Performed By: #### P INR, 20046-5, 72023-0, CBCA, 41638-0, CMP, 4548-4, 6873-4 #### [facility] ([id number]) [address] [place] [address] 43747 #### HA1C #### [facility] ([id number]) [address], [address] [place] [address] MCV (RBC) [Entitic vol] 86 fL Normal 80-100 [facility] Comment on above: Performed By: #### P INR, 93780-1, 51189-1, CBCA, 67092-9, CMP, 4548-4, 6873-4 #### [facility] ([id number]) [address] [place] [address] 88147 #### HA1C #### [facility] ([id number]) [address], [address] [place] [address] Monocytes (Bld) [#/Vol] 0.2 10*3/uL Normal 0-0.9 [facility] Comment on above: Performed By: #### P INR, 41406-1, 39920-4, CBCA, 50280-4, CMP, 4548-4, 6873-4 #### [facility] ([id number]) [address] [place] [address] 13272 #### HA1C #### [facility] ([id number]) [address], [address] [place] [address] Monocytes/100 WBC (Bld) 4.9 % Normal [facility] Comment on above: Performed By: #### P INR, 80957-2, 25555-9, CBCA, 97143-7, CMP, 4548-4, 6873-4 #### [facility] ([id number]) [address] [place] [address] 40325 #### HA1C #### [facility] ([id number]) [address], [address] [place] [address] Neutrophils (Bld) [#/Vol] 1.4 10*3/uL Low 1.5-6.6 [facility] Comment on above: Performed By: #### P INR, 23908-6, 17338-0, CBCA, 05538-0, CMP, 4548-4, 6873-4 #### [facility] ([id number]) [address] [place] [address] 44686 #### HA1C #### [facility] ([id number]) [address], [address] [place] [address] Platelet mean volume (Bld) [Entitic vol] 7.7 fL Normal 7-12 [facility] Comment on above: Performed By: #### P INR, 59836-5, 48700-8, CBCA, 59788-6, CMP, 4548-4, 6873-4 #### [facility] ([id number]) [address] [place] [address] 15391 #### HA1C #### [facility] ([id number]) [address] [place] [address] Platelets (Bld) [#/Vol] 214 10*3/uL Normal 150-450 [facility] Comment on above: Performed By: #### P INR, 63154-6, 56220-3, CBCA, 52075-4, CMP, 4548-4, 6873-4 #### [facility] ([id number]) [address] [place] [address] 89692 #### HA1C #### [facility] ([id number]) [address] [facility], [address] [place] [address] RBC COUNT 5.43 X10E12/L Normal 4.10-5.70 [facility] Comment on above: Performed By: #### P INR, 34774-9, 43882-0, CBCA, 43094-4, CMP, 4548-4, 6873-4 #### [facility] ([id number]) [address] [place] [address] 24184 #### HA1C #### [facility] ([id number]) [address] [place] [address], [facility] [address] [place] [address] SEG NEUTROPHIL 40.2 % Normal [facility] Comment on above: Performed By: #### P INR, 94644-1, 48829-2, CBCA, 81790-5, CMP, 4548-4, 6873-4 #### [facility] ([id number]) [address] [place] [address] 32060 #### HA1C #### [facility] ([id number]) [address] [facility], [address] [place] [address] WBC (Bld) [#/Vol] 3.4 10*3/uL Low 4.0-11.0 [facility] Comment on above: Performed By: #### P INR, 45267-9, 70956-0, CBCA, 89099-2, CMP, 4548-4, 6873-4 #### [facility] ([id number]) [address] [place] [address] 86787 #### HA1C #### [facility] ([id number]) [address] [facility], [address] [place] [address] COMPREHENSIVE METABOLIC PANE [place] 10-29-2023 Albumin [Mass/Vol] 4.1 g/dL Normal 3.2-5.3 [facility] Comment on above: Performed By: #### P INR, 21791-5, 21942-9, CBCA, 75107-9, CMP, 4548-4, 6873-4 #### [facility] ([id number]) [address] [place] [address] 06140 #### HA1C #### [facility] ([id number]) [address] [facility], [address] [place] [address] ALP [Catalytic activity/Vol] 66 U/L Normal 39-130 [facility] Comment on above: Performed By: #### P INR, 55289-2, 75356-7, CBCA, 68550-6, CMP, 4548-4, 6873-4 #### [facility] ([id number]) [address] [place] [address] 94094 #### HA1C #### [facility] ([id number]) [address] [facility], [address] [place] [address] ALT [Catalytic activity/Vol] 27 U/L Normal 0-40 [facility] Comment on above: Performed By: #### P INR, 42914-8, 30990-4, CBCA, 04017-5, CMP, 4548-4, 6873-4 #### [facility] ([id number]) [address] [place] [address] 40812 #### HA1C #### [facility] ([id number]) [address] [facility], [address] [place] [address] Anion gap [Moles/Vol] 9 mmol/L Normal 5-15 [facility] Comment on above: Performed By: #### P INR, 29023-8, 10678-0, CBCA, 58387-1, CMP, 4548-4, 6873-4 #### [facility] ([id number]) [address] [place] [address] 74685 #### HA1C #### [facility] ([id number]) [address], [address] [place] [address] AST [Catalytic activity/Vol] 19 U/L Normal 0-41 [facility] Comment on above: Performed By: #### P INR, 60468-1, 31192-2, CBCA, 82104-9, CMP, 4548-4, 6873-4 #### [facility] ([id number]) [address] [place] [address] 94515 #### HA1C #### [facility] ([id number]) [address], [address] [place] [address] Bilirubin [Mass/Vol] 0.7 mg/dL Normal 0.3-1.2 [facility] Comment on above: Performed By: #### P INR, 05362-0, 52800-5, CBCA, 89658-2, CMP, 4548-4, 6873-4 #### [facility] ([id number]) [address] [place] [address] 25296 #### HA1C #### [facility] ([id number]) [address], [address] [place] [address] Calcium [Mass/Vol] 9.1 mg/dL Normal 8.5-10.5 [facility] Comment on above: Performed By: #### P INR, 69188-3, 65461-2, CBCA, 52857-2, CMP, 4548-4, 6873-4 #### [facility] ([id number]) [address] [place] [address] 68818 #### HA1C #### [facility] ([id number]) [address], [address] [place] [address] Chloride [Moles/Vol] 94 mmol/L Low 98-109 [facility] Comment on above: Performed By: #### P INR, 96411-6, 46020-0, CBCA, 88780-3, CMP, 4548-4, 6873-4 #### [facility] ([id number]) [address] [place] [address] 94618 #### HA1C #### [facility] ([id number]) [address] [facility], [address] [place] [address] CO2 [Moles/Vol] 28 mmol/L Normal 22-32 [facility] Comment on above: Performed By: #### P INR, 20593-3, 11700-9, CBCA, 34080-3, CMP, 4548-4, 6873-4 #### [facility] ([id number]) [address] [place] [address] 00951 #### HA1C #### [facility] ([id number]) [address], [address] [place] [address] Creatinine [Mass/Vol] 0.78 mg/dL Normal 0.70-1.20 [facility] Comment on above: Result Comment: METH OD TRACEABLE TO IDMS STANDARD Performed By: #### P INR, 25158-7, 13407-0, CBCA, 42733-4, CMP, 4548-4, 6873-4 #### [facility] ([id number]) [address] [place] [address] 35004 #### HA1C #### [facility] ([id number]) [address], [address] [place] [address] eGFR (CKD-EPI) NON-RACE DEPENDENT >90 Normal >59 [facility] Comment on above: Result Comment: Reported eGFR is based on the CKD-EPI 2020 equation that does not use a race coefficient. Performed By: #### P INR, 99516-2, 55469-4, CBCA, 68514-5, CMP, 4548-4, 6873-4 #### [facility] ([id number]) [address] [place] [address] 56531 #### HA1C #### [facility] ([id number]) [address] [facility], [address] [place] [address] Glucose [Mass/Vol] 232 mg/dL High 65-99 [facility] Comment on above: Performed By: #### P INR, 46996-8, 22906-8, CBCA, 09315-2, CMP, 4548-4, 6873-4 #### [facility] ([id number]) [address] [place] [address] 78555 #### HA1C #### [facility] ([id number]) [address] [facility], [address] [place] [address] Potassium [Moles/Vol] 4.1 mmol/L Normal 3.5-5.0 [facility] Comment on above: Performed By: #### P INR, 34185-7, 98158-7, CBCA, 15751-5, CMP, 4548-4, 6873-4 #### [facility] ([id number]) [address] [place] [address] 31063 #### HA1C #### [facility] ([id number]) [address] [facility], [address] [place] [address] Protein [Mass/Vol] 7.1 g/dL Normal 6.0-8.0 [facility] Comment on above: Performed By: #### P INR, 63400-9, 35009-8, CBCA, 75747-9, CMP, 4548-4, 6873-4 #### [facility] ([id number]) [address] [place] [address] 82236 #### HA1C #### [facility] ([id number]) [address], [address] [place] [address] Sodium [Moles/Vol] 131 mmol/L Low 134-146 [facility] Comment on above: Performed By: #### P INR, 17859-7, 19079-0, CBCA, 18720-9, CMP, 4548-4, 6873-4 #### [facility] ([id number]) [address] [place] [address] 47493 #### HA1C #### [facility] ([id number]) [address], [address] [place] [address] Urea nitrogen [Mass/Vol] 14 mg/dL Normal 5-27 [facility] Comment on above: Performed By: #### P INR, 53637-7, 45739-0, CBCA, 01414-3, CMP, 4548-4, 6873-4 #### [facility] ([id number]) [address] [place] [address] 37809 #### HA1C #### [facility] ([id number]) [address], [address] [place] [address] MAGNESIUMon 10-29-2023 Magnesium [Mass/Vol] 1.9 mg/dL Normal 1.8-2.6 [facility] Comment on above: Performed By: #### P INR, 85724-6, 62204-6, CBCA, 46276-4, CMP, 4548-4, 6873-4 #### [facility] ([id number]) [address] [place] [address] 71519 #### HA1C #### [facility] ([id number]) [address], [address] [place] [address] CBC AND AUTO DIFFon 10-28-19 24 ABSOLUTE BASOPHIL 0.1 X10E9/L Normal 0.0-0.2 [facility] Comment on above: Performed By: #### P INR, 61484-8, 46096-7, CBCA, 35811-1, CMP, 4548-4, 6873-4 #### [facility] ([id number]) [address] [place] [address] 52389 #### HA1C #### [facility] ([id number]) [address] [place] [address], [address] [place] [address] ABSOLUTE NEUTROPHIL 1.5 X10E9/L Normal 1.5-6.6 [facility] Comment on above: Performed By: #### P INR, 63457-1, 08346-6, CBCA, 21732-8, CMP, 4548-4, 6873-4 #### [facility] ([id number]) [address] [place] [address] 01781 #### HA1C #### [facility] ([id number]) [address] [place] [address], [address] [place] [address] Basophils/100 WBC (Bld) 1.4 % Normal [facility] Comment on above: Performed By: #### P INR, 69575-2, 34614-5, CBCA, 58352-6, CMP, 4548-4, 6873-4 #### [facility] ([id number]) [address] [place] [address] 11439 #### HA1C #### [facility] ([id number]) [address] [place] [address], [address] [place] [address] Eosinophils (Bld) [#/Vol] 0.1 10*3/uL Normal 0.0-0.4 [facility] Comment on above: Performed By: #### P INR, 79990-8, 82305-6, CBCA, 69807-6, CMP, 4548-4, 6873-4 #### [facility] ([id number]) [address] [place] [address] 23952 #### HA1C #### [facility] ([id number]) [address], [address] [place] [address] Eosinophils/100 WBC (Bld) 3.1 % Normal [facility] Comment on above: Performed By: #### P INR, 69165-5, 31340-3, CBCA, 65506-5, CMP, 4548-4, 6873-4 #### [facility] ([id number]) [address] [place] [address] 78074 #### HA1C #### [facility] ([id number]) [address] [facility], [address] [place] [address] Erythrocyte distribution width (RBC) [Ratio] 13.6 % Normal 11.5-15.0 [facility] Comment on above: Performed By: #### P INR, 25008-5, 12442-7, CBCA, 54093-7, CMP, 4548-4, 6873-4 #### [facility] ([id number]) [address] [place] [address] 27482 #### HA1C #### [facility] ([id number]) [address] [facility], [address] [place] [address] Hematocrit (Bld) [Volume fraction] 42.8 % Normal 39-49 [facility] Comment on above: Performed By: #### P INR, 03802-2, 66756-1, CBCA, 10039-1, CMP, 4548-4, 6873-4 #### [facility] ([id number]) [address] [place] [address] 42790 #### HA1C #### [facility] ([id number]) [address], [address] [place] [address] Hemoglobin (Bld) [Mass/Vol] 14.9 g/dL Normal 13.0-17.0 [facility] Comment on above: Performed By: #### P INR, 07850-5, 00417-5, CBCA, 82430-7, CMP, 4548-4, 6873-4 #### [facility] ([id number]) [address] [place] [address] 66201 #### HA1C #### [facility] ([id number]) [address] [facility], [address] [place] [address] Lymphocytes (Bld) [#/Vol] 1.8 10*3/uL Normal 1.0-3.5 [facility] Comment on above: Performed By: #### P INR, 94979-2, 87133-8, CBCA, 59497-9, CMP, 4548-4, 6873-4 #### [facility] ([id number]) [address] [place] [address] 41852 #### HA1C #### [facility] ([id number]) [address], [address] [place] [address] Lymphocytes/100 WBC (Bld) 46.0 % Normal [facility] Comment on above: Performed By: #### P INR, 11113-4, 45518-9, CBCA, 86478-6, CMP, 4548-4, 6873-4 #### [facility] ([id number]) [address] [place] [address] 79464 #### HA1C #### [facility] ([id number]) [address], [address] [place] [address] MCH (RBC) [Entitic mass] 29.6 pg Normal 27-34 [facility] Comment on above: Performed By: #### P INR, 34300-3, 67062-8, CBCA, 31868-6, CMP, 4548-4, 6873-4 #### [facility] ([id number]) [address] [place] [address] 01630 #### HA1C #### [facility] ([id number]) [address], [address] [place] [address] MCHC (RBC) [Mass/Vol] 34.7 g/dL Normal 32-36 [facility] Comment on above: Performed By: #### P INR, 69109-1, 00650-0, CBCA, 99556-7, CMP, 4548-4, 6873-4 #### [facility] ([id number]) [address] [place] [address] 89103 #### HA1C #### [facility] ([id number]) [address], [address] [place] [address] MCV (RBC) [Entitic vol] 86 fL Normal 80-100 [facility] Comment on above: Performed By: #### P INR, 06153-7, 07567-2, CBCA, 68190-7, CMP, 4548-4, 6873-4 #### [facility] ([id number]) [address] [place] [address] 70623 #### HA1C #### [facility] ([id number]) [address], [address] [place] [address] Monocytes (Bld) [#/Vol] 0.4 10*3/uL Normal 0-0.9 [facility] Comment on above: Performed By: #### P INR, 35098-4, 25648-8, CBCA, 09868-9, CMP, 4548-4, 6873-4 #### [facility] ([id number]) [address] [place] [address] 59872 #### HA1C #### [facility] ([id number]) [address], [address] [place] [address] Monocytes/100 WBC (Bld) 10.4 % Normal [facility] Comment on above: Performed By: #### P INR, 93564-1, 57671-1, CBCA, 14524-1, CMP, 4548-4, 6873-4 #### [facility] ([id number]) [address] [place] [address] 67521 #### HA1C #### [facility] ([id number]) [address] [facility], [address] [place] [address] Neutrophils/100 WBC (Bld) 39.1 % Normal [facility] Comment on above: Performed By: #### P INR, 45802-0, 29441-9, CBCA, 89358-2, CMP, 4548-4, 6873-4 #### [facility] ([id number]) [address] [place] [address] 26706 #### HA1C #### [facility] ([id number]) [address], [address] [place] [address] Platelet mean volume (Bld) [Entitic vol] 7.9 fL Normal 7-12 [facility] Comment on above: Performed By: #### P INR, 44181-3, 40494-5, CBCA, 94192-7, CMP, 4548-4, 6873-4 #### [facility] ([id number]) [address] [place] [address] 35696 #### HA1C #### [facility] ([id number]) [address], [address] [place] [address] Platelets (Bld) [#/Vol] 197 10*3/uL Normal 150-450 [facility] Comment on above: Performed By: #### P INR, 21431-4, 72920-5, CBCA, 14281-0, CMP, 4548-4, 6873-4 #### [facility] ([id number]) [address] [place] [address] 36951 #### HA1C #### [facility] ([id number]) [address] [facility], [address] [place] [address] RBC COUNT 5.01 X10E12/L Normal 4.10-5.70 [facility] Comment on above: Performed By: #### P INR, 01494-3, 62601-4, CBCA, 52110-3, CMP, 4548-4, 6873-4 #### [facility] ([id number]) [address] [place] [address] 77145 #### HA1C #### [facility] ([id number]) [address] [facility], [address] [place] [address] WBC (Bld) [#/Vol] 3.9 10*3/uL Low 4.0-11.0 [facility] Comment on above: Performed By: #### P INR, 18644-1, 73742-8, CBCA, 09687-6, CMP, 4548-4, 6873-4 #### [facility] ([id number]) [address] [place] [address]681 #### HA1C #### [facility] ([id number]) [address] [facility], [address] [place] [address] COMPREHENSIVE METABOLIC PANE [place] 10-28-2023 Albumin [Mass/Vol] 3.8 g/dL Normal 3.2-5.3 [facility] Comment on above: Performed By: #### P INR, 34094-7, 65488-1, CBCA, 43984-0, CMP, 4548-4, 6873-4 #### [facility] ([id number]) [address] [place] [address] #### HA1C #### [facility] ([id number]) [address], [address] [place] [address] ALP [Catalytic activity/Vol] 61 U/L Normal 39-130 [facility] Comment on above: Performed By: #### P INR, 93110-3, 50421-6, CBCA, 18747-0, CMP, 4548-4, 6873-4 #### [facility] ([id number]) [address] [place] [address] 29162 #### HA1C #### [facility] ([id number]) [address] [facility], [address] [place] [address] ALT [Catalytic activity/Vol] 22 U/L Normal 0-40 [facility] Comment on above: Performed By: #### P INR, 31006-4, 11987-9, CBCA, 12225-1, CMP, 4548-4, 6873-4 #### [facility] ([id number]) [address] [place] [address] #### HA1C #### [facility] ([id number]) [address] [facility], [address] [place] [address] Anion gap [Moles/Vol] 10 mmol/L Normal 5-15 [facility] Comment on above: Performed By: #### P INR, 22386-0, 88522-7, CBCA, 48891-6, CMP, 4548-4, 6873-4 #### [facility] ([id number]) [address] [place] [address] 11764 #### HA1C #### [facility] ([id number]) [address] [facility], [address] [place] [address] AST [Catalytic activity/Vol] 18 U/L Normal 0-41 [facility] Comment on above: Performed By: #### P INR, 26058-3, 16926-4, CBCA, 05686-8, CMP, 4548-4, 6873-4 #### [facility] ([id number]) [address] [place] [address] 756[address] #### HA1C #### [facility] ([id number]) [address], [address] [place] [address] Bilirubin [Mass/Vol] 0.8 mg/dL Normal 0.3-1.2 [facility] Comment on above: Performed By: #### P INR, 12064-0, 33747-2, CBCA, 85611-3, CMP, 4548-4, 6873-4 #### [facility] ([id number]) [address] [place] [address]79[address] #### HA1C #### [facility] ([id number]) [address] [facility], [address] [place] [address] Calcium [Mass/Vol] 8.5 mg/dL Normal 8.5-10.5 [facility] Comment on above: Performed By: #### P INR, 05024-4, 56156-5, CBCA, 30648-0, CMP, 4548-4, 6873-4 #### [facility] ([id number]) [address] [place] [address] 10220 #### HA1C #### [facility] ([id number]) [address] [facility], [address] [place] [address] Chloride [Moles/Vol] 94 mmol/L Low 98-109 [facility] Comment on above: Performed By: #### P INR, 24419-4, 32419-4, CBCA, 02931-6, CMP, 4548-4, 6873-4 #### [facility] ([id number]) [address] [place] [address] 51438 #### HA1C #### [facility] ([id number]) [address] [facility], [address] [place] [address] CO2 [Moles/Vol] 26 mmol/L Normal 22-32 [facility] Comment on above: Performed By: #### P INR, 79197-3, 85686-8, CBCA, 84704-0, CMP, 4548-4, 6873-4 #### [facility] ([id number]) [address] [place] [address] 77194 #### HA1C #### [facility] ([id number]) [address] [facility], [address] [place] [address] Creatinine [Mass/Vol] 0.79 mg/dL Normal 0.70-1.20 [facility] Comment on above: Result Comment: METH OD TRACEABLE TO IDMS STANDARD Performed By: #### P INR, 98331-1, 27812-7, CBCA, 14999-5, CMP, 4548-4, 6873-4 #### [facility] ([id number]) [address] [place] [address] 37382 #### HA1C #### [facility] ([id number]) [address] [place] [address], [address] [place] [address] eGFR (CKD-EPI) NON-RACE DEPENDENT >90 Normal >59 [facility] Comment on above: Result Comment: Reported eGFR is based on the CKD-EPI 2020 equation that does not use a race coefficient. Performed By: #### P INR, 00169-3, 43279-8, CBCA, 87644-4, CMP, 4548-4, 6873-4 #### [facility] ([id number]) [address] [place] [address] 30450 #### HA1C #### [facility] ([id number]) [address] [place] [address], [address] [place] [address] Glucose [Mass/Vol] 228 mg/dL High 65-99 [facility] Comment on above: Performed By: #### P INR, 82043-4, 00390-3, CBCA, 76440-3, CMP, 4548-4, 6873-4 #### [facility] ([id number]) [address] [place] [address] 93216 #### HA1C #### [facility] ([id number]) [address], [address] [place] [address] Potassium [Moles/Vol] 3.7 mmol/L Normal 3.5-5.0 [facility] Comment on above: Performed By: #### P INR, 77622-5, 39311-8, CBCA, 63000-2, CMP, 4548-4, 6873-4 #### [facility] ([id number]) [address] [place] [address] 74415 #### HA1C #### [facility] ([id number]) [address], [address] [place] [address] Protein [Mass/Vol] 6.3 g/dL Normal 6.0-8.0 [facility] Comment on above: Performed By: #### P INR, 69469-2, 07990-6, CBCA, 63127-6, CMP, 4548-4, 6873-4 #### [facility] ([id number]) [address] [place] [address] 65211 #### HA1C #### [facility] ([id number]) [address], [address] [place] [address] Sodium [Moles/Vol] 130 mmol/L Low 134-146 [facility] Comment on above: Performed By: #### P INR, 57964-0, 22085-7, CBCA, 08396-7, CMP, 4548-4, 6873-4 #### [facility] ([id number]) [address] [place] [address] 69498 #### HA1C #### [facility] ([id number]) [address], [address] [place] [address] Urea nitrogen [Mass/Vol] 16 mg/dL Normal 5-27 [facility] Comment on above: Performed By: #### P INR, 14982-3, 83212-8, CBCA, 10712-6, CMP, 4548-4, 6873-4 #### [facility] ([id number]) [address] [place] [address], [place] [address] #### HA1C #### [facility] ([id number]) [address], [address] [place] [address] CT CTA CAROTIDon 10-28-2023 CT CTA CAROTID [...] Giles MD on 10/28/2023 12:26 PM Normal [facility] CT CTA HEADon 10-28-2023 CT [...] Mayes MD on 10/28/2023 12:38 PM Normal [facility] Glucose Glucometer (BldC) [M ass/Vol]on 10-28-2023 Glucose [Mass/Vol] 226 mg/dL High 65-99 [facility] Glucose [Mass/Vol] 279 mg/dL High 65-99 [facility] Glucose [Mass/Vol] 248 mg/dL High 65-99 [facility] Glucose [Mass/Vol] 221 mg/dL High 65-99 [facility] Lipid 1996 panelon Cholesterol [Mass/Vol] 219 mg/dL High 150-200 [facility] Comment on above: Performed By: #### P INR, 58608-5, 90663-1, CBCA, 17011-6, CMP, 4548-4, 2973-4 #### [facility] ([id number]) [address] [facility] [place], [place] [address] #### HA1C #### [facility] ([id number]) [address] [place] [address], [address] [place] [address] Cholesterol in HDL [Mass/Vol] 43 mg/dL Normal >39 [facility] Comment on above: Result Comment: HDL <40 mg/dL - High Risk HDL > or = 40mg/dL- Desirable HDL >60 mg/dL - Negative Risk Performed By: #### P INR, 03560-9, 14699-2, CBCA, 32085-2, CMP, 4548-4, 6873-4 #### [facility] ([id number]) [address] [place] [address] 84729 #### HA1C #### [facility] ([id number]) [address] [facility], [address] [place] [address] Cholesterol in LDL [Mass/Vol] 143 mg/dL High <130 [facility] Comment on above: Result Comment: LDL <100 mg/dL - Desirable LDL >160 mg/dL - High Risk Performed By: #### P INR, 25379-0, 00033-9, CBCA, 78871-5, CMP, 4548-4, 6873-4 #### [facility] ([id number]) [address] [place] [address] 01046 #### HA1C #### [facility] ([id number]) [address] [facility], [address] [place] [address] Cholesterol in VLDL [Mass/Vol] 33 mg/dL High 0-30 [facility] Comment on above: Performed By: #### P INR, 37861-9, 06089-2, CBCA, 29680-2, CMP, 4548-4, 6873-4 #### [facility] ([id number]) [address] [place] [address] 86384 #### HA1C #### [facility] ([id number]) [address] [facility], [address] [place] [address] CHOLESTEROL:HDL 5.1 High 1.0-5.0 [facility] Comment on above: Performed By: #### P INR, 97051-3, 45181-6, CBCA, 49190-5, CMP, 4548-4, 6873-4 #### [facility] ([id number]) [address] [place] [address] 35316 #### HA1C #### [facility] ([id number]) [address], [address] [place] [address] Triglyceride [Mass/Vol] 164 mg/dL High 27-150 [facility] Comment on above: Performed By: #### P INR, 31075-4, 23088-0, CBCA, 41048-6, CMP, 4548-4, 6873-4 #### [facility] ([id number]) [address] [place] [address] 38115 #### HA1C #### [facility] ([id number]) [address] [facility], [address] [place] [address] MAGNESIUMon 10-28-2023 Magnesium [Mass/Vol] 1.8 mg/dL Normal 1.8-2.6 [facility] Comment on above: Performed By: #### P INR, 34284-5, 02024-3, CBCA, 91523-9, CMP, 4548-4, 6873-4 #### [facility] ([id number]) [address] [place] [address] 01365 #### HA1C #### [facility] ([id number]) [address], [address] [place] [address] MR BRAIN WO CONTon 4 MR BRAIN [...] Anderson MD on 10/28/2023 10:39 AM Normal [facility] CBC AND AUTO DIFFon 10-27-19 24 ABSOLUTE BASOPHIL 0.0 X10E9/L Normal 0.0-0.2 [facility] Comment on above: Performed By: #### P INR, 99470-8, 11020-6, CBCA, 82765-4, CMP, 4548-4, 6873-4 #### [facility] ([id number]) [address] [facility] [place], [place] [address] #### HA1C #### [facility] ([id number]) [address] [facility], [address] [place] [address] ABSOLUTE NEUTROPHIL 1.8 X10E9/L Normal 1.5-6.6 [facility] Comment on above: Performed By: #### P INR, 64090-0, 41548-9, CBCA, 81854-5, CMP, 4548-4, 6873-4 #### [facility] ([id number]) [address] [place] [address] 21228 #### HA1C #### [facility] ([id number]) [address], [address] [place] [address] Basophils/100 WBC (Bld) 1.2 % Normal [facility] Comment on above: Performed By: #### P INR, 39375-2, 92635-2, CBCA, 07532-9, CMP, 4548-4, 6873-4 #### [facility] ([id number]) [address] [place] [address] 38512 #### HA1C #### [facility] ([id number]) [address], [address] [place] [address] Eosinophils (Bld) [#/Vol] 0.1 10*3/uL Normal 0.0-0.4 [facility] Comment on above: Performed By: #### P INR, 35707-1, 16224-5, CBCA, 02330-5, CMP, 4548-4, 6873-4 #### [facility] ([id number]) [address] [place] [address] 25442 #### HA1C #### [facility] ([id number]) [address], [address] [place] [address] Eosinophils/100 WBC (Bld) 2.5 % Normal [facility] Comment on above: Performed By: #### P INR, 08911-1, 07447-3, CBCA, 60458-4, CMP, 4548-4, 6873-4 #### [facility] ([id number]) [address] [place] [address] 90454 #### HA1C #### [facility] ([id number]) [address], [address] [place] [address] Erythrocyte distribution width (RBC) [Ratio] 13.5 % Normal 11.5-15.0 [facility] Comment on above: Performed By: #### P INR, 33260-3, 01160-4, CBCA, 01091-0, CMP, 4548-4, 6873-4 #### [facility] ([id number]) [address] [place] [address] 37587 #### HA1C #### [facility] ([id number]) [address] [facility] [address] [place] [address] Hematocrit (Bld) [Volume fraction] 43.3 % Normal 39-49 [facility] Comment on above: Performed By: #### P INR, 30696-1, 52197-0, CBCA, 21072-0, CMP, 4548-4, 6873-4 #### [facility] ([id number]) [address] [place] [address] 27970 #### HA1C #### [facility] ([id number]) [address] [facility] [address] [place] [address] Hemoglobin (Bld) [Mass/Vol] 14.9 g/dL Normal 13.0-17.0 [facility] Comment on above: Performed By: #### P INR, 06420-0, 55424-5, CBCA, 67200-9, CMP, 4548-4, 6873-4 #### [facility] ([id number]) [address] [place] [address] 02596 #### HA1C #### [facility] ([id number]) [address] [facility] [address] [place] [address] Lymphocytes (Bld) [#/Vol] 1.3 10*3/uL Normal 1.0-3.5 [facility] Comment on above: Performed By: #### P INR, 12312-4, 51148-8, CBCA, 72687-3, CMP, 4548-4, 6873-4 #### [facility] ([id number]) [address] [place] [address] 01783 #### HA1C #### [facility] ([id number]) [address] [facility], [address] [place] [address] Lymphocytes/100 WBC (Bld) 36.9 % Normal [facility] Comment on above: Performed By: #### P INR, 60763-3, 20437-2, CBCA, 71993-5, CMP, 4548-4, 6873-4 #### [facility] ([id number]) [address] [place] [address] 27520 #### HA1C #### [facility] ([id number]) [address] [facility], [address] [place] [address] MCH (RBC) [Entitic mass] 29.3 pg Normal 27-34 [facility] Comment on above: Performed By: #### P INR, 98663-8, 92324-3, CBCA, 87860-8, CMP, 4548-4, 6873-4 #### [facility] ([id number]) [address] [place] [address] 34439 #### HA1C #### [facility] ([id number]) [address] [facility], [address] [place] [address] MCHC (RBC) [Mass/Vol] 34.4 g/dL Normal 32-36 [facility] Comment on above: Performed By: #### P INR, 91218-3, 19508-2, CBCA, 90668-4, CMP, 4548-4, 6873-4 #### [facility] ([id number]) [address] [place] [address] 46089 #### HA1C #### [facility] ([id number]) [address], [address] [place] [address] MCV (RBC) [Entitic vol] 85 fL Normal 80-100 [facility] Comment on above: Performed By: #### P INR, 49686-9, 21454-1, CBCA, 91992-8, CMP, 4548-4, 6873-4 #### [facility] ([id number]) [address] [place] [address] 40191 #### HA1C #### [facility] ([id number]) [address] [facility], [address] [place] [address] Monocytes (Bld) [#/Vol] 0.3 10*3/uL Normal 0-0.9 [facility] Comment on above: Performed By: #### P INR, 58230-3, 80999-8, CBCA, 37079-6, CMP, 4548-4, 6873-4 #### [facility] ([id number]) [address] [place] [address] 21751 #### HA1C #### [facility] ([id number]) [address], [address] [place] [address] Monocytes/100 WBC (Bld) 8.4 % Normal [facility] Comment on above: Performed By: #### P INR, 99961-3, 31317-8, CBCA, 70370-3, CMP, 4548-4, 6873-4 #### [facility] ([id number]) [address] [place] [address] 10028 #### HA1C #### [facility] ([id number]) [address], [address] [place] [address] Neutrophils/100 WBC (Bld) 51.0 % Normal [facility] Comment on above: Performed By: #### P INR, 60419-7, 14502-9, CBCA, 13947-0, CMP, 4548-4, 6873-4 #### [facility] ([id number]) [address] [place] [address] 18369 #### HA1C #### [facility] ([id number]) [address], [address] [place] [address] Platelet mean volume (Bld) [Entitic vol] 7.7 fL Normal 7-12 [facility] Comment on above: Performed By: #### P INR, 75647-2, 64771-7, CBCA, 83830-3, CMP, 4548-4, 6873-4 #### [facility] ([id number]) [address] [place] [address] 02444 #### HA1C #### [facility] ([id number]) [address], [address] [place] [address] Platelets (Bld) [#/Vol] 192 10*3/uL Normal 150-450 [facility] Comment on above: Performed By: #### P INR, 95826-5, 75961-2, CBCA, 07378-1, CMP, 4548-4, 6873-4 #### [facility] ([id number]) [address] [place] [address] 47070 #### HA1C #### [facility] ([id number]) [address], [address] [place] [address] RBC COUNT 5.08 X10E12/L Normal 4.10-5.70 [facility] Comment on above: Performed By: #### P INR, 88175-2, 68594-8, CBCA, 30136-6, CMP, 4548-4, 6873-4 #### [facility] ([id number]) [address] [place] [address] 20024 #### HA1C #### [facility] ([id number]) [address] [place] [address], [address] [place] [address] WBC (Bld) [#/Vol] 3.6 10*3/uL Low 4.0-11.0 [facility] Comment on above: Performed By: #### P INR, 05448-2, 01429-4, CBCA, 11219-6, CMP, 4548-4, 6873-4 #### [facility] ([id number]) [address] [place] [address] 63189 #### HA1C #### [facility] ([id number]) [address] [place] [address], [address] [place] [address] COMPREHENSIVE METABOLIC PANE [place] 10-27-2023 Albumin [Mass/Vol] 4.0 g/dL Normal 3.2-5.3 [facility] Comment on above: Performed By: #### P INR, 56071-0, 84586-3, CBCA, 87412-0, CMP, 4548-4, 6873-4 #### [facility] ([id number]) [address] [place] [address] 36483 #### HA1C #### [facility] ([id number]) [address] [place] [address], [address] [place] [address] ALP [Catalytic activity/Vol] 65 U/L Normal 39-130 [facility] Comment on above: Performed By: #### P INR, 94387-1, 57095-2, CBCA, 76584-0, CMP, 4548-4, 6873-4 #### [facility] ([id number]) [address] [place] [address] 86969 #### HA1C #### [facility] ([id number]) [address] [place] [address], [address] [place] [address] ALT [Catalytic activity/Vol] 21 U/L Normal 0-40 [facility] Comment on above: Performed By: #### P INR, 32750-7, 25730-2, CBCA, 81513-4, CMP, 4548-4, 6873-4 #### [facility] ([id number]) [address] [place] [address] 88531 #### HA1C #### [facility] ([id number]) [address], [address] [place] [address] Anion gap [Moles/Vol] 4 mmol/L Low 5-15 [facility] Comment on above: Performed By: #### P INR, 45500-5, 55513-4, CBCA, 54066-5, CMP, 4548-4, 6873-4 #### [facility] ([id number]) [address] [place] [address] 40016 #### HA1C #### [facility] ([id number]) [address], [address] [place] [address] AST [Catalytic activity/Vol] 17 U/L Normal 0-41 [facility] Comment on above: Performed By: #### P INR, 79967-3, 91663-4, CBCA, 90874-6, CMP, 4548-4, 6873-4 #### [facility] ([id number]) [address] [place] [address] 11406 #### HA1C #### [facility] ([id number]) [address], [address] [place] [address] Bilirubin [Mass/Vol] 1.1 mg/dL Normal 0.3-1.2 [facility] Comment on above: Performed By: #### P INR, 36610-9, 02358-9, CBCA, 42142-5, CMP, 4548-4, 6873-4 #### [facility] ([id number]) [address] [place] [address] 14049 #### HA1C #### [facility] ([id number]) [address], [address] [place] [address] Calcium [Mass/Vol] 8.3 mg/dL Low 8.5-10.5 [facility] Comment on above: Performed By: #### P INR, 05636-7, 65229-1, CBCA, 01936-7, CMP, 4548-4, 6873-4 #### [facility] ([id number]) [address] [place] [address] 90033 #### HA1C #### [facility] ([id number]) [address] [place] [address], [address] [place] [address] Chloride [Moles/Vol] 101 mmol/L Normal 98-109 [facility] Comment on above: Performed By: #### P INR, 35626-3, 78845-4, CBCA, 78995-4, CMP, 4548-4, 6873-4 #### [facility] ([id number]) [address] [place] [address] 86849 #### HA1C #### [facility] ([id number]) [address] [place] [address], [address] [place] [address] CO2 [Moles/Vol] 24 mmol/L Normal 22-32 [facility] Comment on above: Performed By: #### P INR, 74662-5, 01560-4, CBCA, 08349-9, CMP, 4548-4, 6873-4 #### [facility] ([id number]) [address] [place] [address] 05078 #### HA1C #### [facility] ([id number]) [address] [place] [address], [address] [place] [address] Creatinine [Mass/Vol] 0.75 mg/dL Normal 0.70-1.20 [facility] Comment on above: Result Comment: METH OD TRACEABLE TO IDMS STANDARD Performed By: #### P INR, 48805-7, 00553-8, CBCA, 99093-1, CMP, 4548-4, 6873-4 #### [facility] ([id number]) [address] [place] [address] 62071 #### HA1C #### [facility] ([id number]) [address], [address] [place] [address] eGFR (CKD-EPI) NON-RACE DEPENDENT >90 Normal >59 [facility] Comment on above: Result Comment: Reported eGFR is based on the CKD-EPI 2021 equation that does not use a race coefficient. Performed By: #### P INR, 37689-7, 59556-1, CBCA, 59103-5, CMP, 4548-4, 6873-4 #### [facility] ([id number]) [address] [place] [address] #### HA1C #### [facility] ([id number]) [address] [facility], [address] [place] [address] Glucose [Mass/Vol] 272 mg/dL High 65-99 [facility] Comment on above: Performed By: #### P INR, 49842-0, 56823-2, CBCA, 14134-8, CMP, 4548-4, 6873-4 #### [facility] ([id number]) [address] [place] [address] #### HA1C #### [facility] ([id number]) [address] [facility], [address] [place] [address] Potassium [Moles/Vol] 4.1 mmol/L Normal 3.5-5.0 [facility] Comment on above: Performed By: #### P INR, 91245-8, 02179-2, CBCA, 03012-0, CMP, 4548-4, 6873-4 #### [facility] ([id number]) [address] [place] [address] #### HA1C #### [facility] ([id number]) [address] [facility], [address] [place] [address] Protein [Mass/Vol] 6.4 g/dL Normal 6.0-8.0 [facility] Comment on above: Performed By: #### P INR, 25341-5, 09439-7, CBCA, 02642-6, CMP, 4548-4, 6873-4 #### [facility] ([id number]) [address] [place] [address] #### HA1C #### [facility] ([id number]) [address] [facility], [address] [place] [address] Sodium [Moles/Vol] 129 mmol/L Low 134-146 [facility] Comment on above: Performed By: #### P INR, 86493-3, 82886-4, CBCA, 52270-8, CMP, 4548-4, 6873-4 #### [facility] ([id number]) [address] [place] [address] #### HA1C #### [facility] ([id number]) [address] [facility], [address] [place] [address] Urea nitrogen [Mass/Vol] 20 mg/dL Normal 5-27 [facility] Comment on above: Performed By: #### P INR, 18991-1, 19313-3, CBCA, 50224-8, CMP, 4548-4, 6873-4 #### [facility] ([id number]) [address] [place] [address] #### HA1C #### [facility] ([id number]) [address] [facility], [address] [place] [address] Glucose Glucometer (BldC) [M ass/Vol]on 10-27-2023 Glucose [Mass/Vol] 293 mg/dL High 65-99 [facility] Glucose [Mass/Vol] 311 mg/dL High 65-99 [facility] Glucose [Mass/Vol] 270 mg/dL High 65-99 [facility] Glucose [Mass/Vol] 280 mg/dL High 65-99 [facility] Glucose [Mass/Vol] 260 mg/dL High 65-99 [facility] MAGNESIUMon 10-27-2023 Magnesium [Mass/Vol] 2.2 mg/dL Normal 1.8-2.6 [facility] Comment on above: Performed By: #### P INR, 23396-4, 16048-6, CBCA, 47137-2, CMP, 4548-4, 6873-4 #### [facility] ([id number]) [address] [place] [address] #### HA1C #### [facility] ([id number]) [address] [place] [address], [address] [place] [address] Beta hydroxybutyrate [Moles/ Vol]on 10-26-2023 BetaHydroxybutyrate 1.69 mmol/L High 0.02-0.27 [facility] Comment on above: Performed By: #### P INR, 94339-3, 24171-0, CBCA, 32136-1, CMP, 4548-4, 6873-4 #### [facility] [facility] ([id number]) [address] [place] [address] 54750 #### HA1C #### [facility] ([id number]) [address] [facility], [address] [place] [address] CBC AND AUTO DIFFon 10-26-20 23 ABSOLUTE BASOPHIL 0.0 X10E9/L Normal 0.0-0.2 [facility] Comment on above: Performed By: #### P INR, 63932-6, 92253-1, CBCA, 27451-2, CMP, 4548-4, 6873-4 #### [facility] ([id number]) [address] [place] [address] 44730 #### HA1C #### [facility] ([id number]) [address], [address] [place] [address] ABSOLUTE NEUTROPHIL 2.5 X10E9/L Normal 1.5-6.6 [facility] Comment on above: Performed By: #### P INR, 66637-5, 60772-0, CBCA, 45593-8, CMP, 4548-4, 6873-4 #### [facility] ([id number]) [address] [place] [address] 50220 #### HA1C #### [facility] ([id number]) [address], [address] [place] [address] Basophils/100 WBC (Bld) 1.0 % Normal [facility] Comment on above: Performed By: #### P INR, 09403-0, 74383-4, CBCA, 63207-3, CMP, 4548-4, 6873-4 #### [facility] ([id number]) [address] [place] [address] 40407 #### HA1C #### [facility] ([id number]) [address], [address] [place] [address] Eosinophils (Bld) [#/Vol] 0.1 10*3/uL Normal 0.0-0.4 [facility] Comment on above: Performed By: #### P INR, 97022-7, 75660-9, CBCA, 94672-0, CMP, 4548-4, 6873-4 #### [facility] ([id number]) [address] [place] [address] 86536 #### HA1C #### [facility] ([id number]) [address], [address] [place] [address] Eosinophils/100 WBC (Bld) 1.2 % Normal [facility] Comment on above: Performed By: #### P INR, 87279-8, 17812-1, CBCA, 72984-1, CMP, 4548-4, 6873-4 #### [facility] ([id number]) [address] [place] [address] 23934 #### HA1C #### [facility] ([id number]) [address], [address] [place] [address] Erythrocyte distribution width (RBC) [Ratio] 13.4 % Normal 11.5-15.0 [facility] Comment on above: Performed By: #### P INR, 81561-1, 82789-1, CBCA, 28740-2, CMP, 4548-4, 6873-4 #### [facility] ([id number]) [address] [place] [address] 92040 #### HA1C #### [facility] ([id number]) [address] [facility], [address] [place] [address] Hematocrit (Bld) [Volume fraction] 46.5 % Normal 39-49 [facility] Comment on above: Performed By: #### P INR, 96677-1, 86148-0, CBCA, 46220-8, CMP, 4548-4, 6873-4 #### [facility] ([id number]) [address] [place] [address] 37652 #### HA1C #### [facility] ([id number]) [address], [address] [place] [address] Hemoglobin (Bld) [Mass/Vol] 16.0 g/dL Normal 13.0-17.0 [facility] Comment on above: Performed By: #### P INR, 24233-0, 87941-4, CBCA, 09179-0, CMP, 4548-4, 6873-4 #### [facility] ([id number]) [address] [place] [address] 98740 #### HA1C #### [facility] ([id number]) [address] [facility], [address] [place] [address] Lymphocytes (Bld) [#/Vol] 1.4 10*3/uL Normal 1.0-3.5 [facility] Comment on above: Performed By: #### P INR, 98428-7, 69370-9, CBCA, 82579-3, CMP, 4548-4, 6873-4 #### [facility] ([id number]) [address] [place] [address] 14787 #### HA1C #### [facility] ([id number]) [address] [place] [address], [address] [place] [address] Lymphocytes/100 WBC (Bld) 31.7 % Normal [facility] Comment on above: Performed By: #### P INR, 28680-1, 89561-0, CBCA, 41487-2, CMP, 4548-4, 6873-4 #### [facility] ([id number]) [address] [place] [address] 89302 #### HA1C #### [facility] ([id number]) [address] [place] [address], [address] [place] [address] MCH (RBC) [Entitic mass] 29.6 pg Normal 27-34 [facility] Comment on above: Performed By: #### P INR, 82127-7, 36695-8, CBCA, 64295-1, CMP, 4548-4, 6873-4 #### [facility] ([id number]) [address] [place] [address] 35953 #### HA1C #### [facility] ([id number]) [address] [place] [address], [address] [place] [address] MCHC (RBC) [Mass/Vol] 34.4 g/dL Normal 32-36 [facility] Comment on above: Performed By: #### P INR, 42404-3, 17998-6, CBCA, 63458-6, CMP, 4548-4, 6873-4 #### [facility] ([id number]) [address] [place] [address] 77531 #### HA1C #### [facility] ([id number]) [address], [address] [place] [address] MCV (RBC) [Entitic vol] 86 fL Normal 80-100 [facility] Comment on above: Performed By: #### P INR, 85657-7, 17601-6, CBCA, 16369-1, CMP, 4548-4, 6873-4 #### [facility] ([id number]) [address] [place] [address] 01578 #### HA1C #### [facility] ([id number]) [address] [facility], [address] [place] [address] Monocytes (Bld) [#/Vol] 0.3 10*3/uL Normal 0-0.9 [facility] Comment on above: Performed By: #### P INR, 73009-4, 15892-1, CBCA, 64231-8, CMP, 4548-4, 6873-4 #### [facility] ([id number]) [address] [place] [address] 31216 #### HA1C #### [facility] ([id number]) [address] [facility], [address] [place] [address] Monocytes/100 WBC (Bld) 7.3 % Normal [facility] Comment on above: Performed By: #### P INR, 49776-1, 86938-6, CBCA, 54960-7, CMP, 4548-4, 6873-4 #### [facility] ([id number]) [address] [place] [address] 52525 #### HA1C #### [facility] ([id number]) [address], [address] [place] [address] Neutrophils/100 WBC (Bld) 58.8 % Normal [facility] Comment on above: Performed By: #### P INR, 78423-1, 13757-4, CBCA, 78614-6, CMP, 4548-4, 6873-4 #### [facility] ([id number]) [address] [place] [address] 01185 #### HA1C #### [facility] ([id number]) [address] [facility], [address] [place] [address] Platelet mean volume (Bld) [Entitic vol] 8.0 fL Normal 7-12 [facility] Comment on above: Performed By: #### P INR, 12343-4, 98907-4, CBCA, 76270-3, CMP, 4548-4, 6873-4 #### [facility] ([id number]) [address] [place] [address] 97517 #### HA1C #### [facility] ([id number]) [address] [facility] [facility] [address] [place] [address] Platelets (Bld) [#/Vol] 219 10*3/uL Normal 150-450 [facility] Comment on above: Performed By: #### P INR, 79841-1, 73096-5, CBCA, 78931-9, CMP, 4548-4, 6873-4 #### [facility] ([id number]) [address] [place] [address] 55276 #### HA1C #### [facility] ([id number]) [address], [address] [place] [address] RBC COUNT 5.41 X10E12/L Normal 4.10-5.70 [facility] Comment on above: Performed By: #### P INR, 70348-5, 50844-4, CBCA, 71959-1, CMP, 4548-4, 6873-4 #### [facility] ([id number]) [address] [place] [address] 29783 #### HA1C #### [facility] ([id number]) [address] [facility], [address] [place] [address] WBC (Bld) [#/Vol] 4.3 10*3/uL Normal 4.0-11.0 [facility] Comment on above: Performed By: #### P INR, 22848-6, 61597-2, CBCA, 89076-0, CMP, 4548-4, 6873-4 #### [facility] ([id number]) [address] [place] [address] 94069 #### HA1C #### [facility] ([id number]) [address] [facility], [address] [place] [address] COMPREHENSIVE METABOLIC PANE [facility] 10-26-2023 Albumin [Mass/Vol] 4.3 g/dL Normal 3.2-5.3 [facility] Comment on above: Performed By: #### P INR, 41808-2, 14865-0, CBCA, 64081-7, CMP, 4548-4, 6873-4 #### [facility] ([id number]) [address] [place] [address] 54022 #### HA1C #### [facility] ([id number]) [address] [facility], [address] [place] [address] ALP [Catalytic activity/Vol] 73 U/L Normal 39-130 [facility] Comment on above: Performed By: #### P INR, 71849-1, 70998-6, CBCA, 31390-1, CMP, 4548-4, 6873-4 #### [facility] ([id number]) [address] [place] [address] 77615 #### HA1C #### [facility] ([id number]) [address], [address] [place] [address] ALT [Catalytic activity/Vol] 25 U/L Normal 0-40 [facility] Comment on above: Performed By: #### P INR, 73269-6, 90558-2, CBCA, 24609-5, CMP, 4548-4, 6873-4 #### [facility] ([id number]) [address] [place] [address] 80891 #### HA1C #### [facility] ([id number]) [address] [facility], [address] [place] [address] Anion gap [Moles/Vol] 10 mmol/L Normal 5-15 [facility] Comment on above: Performed By: #### P INR, 82943-4, 07227-9, CBCA, 29682-0, CMP, 4548-4, 6873-4 #### [facility] ([id number]) [address] [place] [address] 95310 #### HA1C #### [facility] ([id number]) [address] [facility], [address] [place] [address] AST [Catalytic activity/Vol] 19 U/L Normal 0-41 [facility] Comment on above: Performed By: #### P INR, 42698-4, 87966-5, CBCA, 65617-7, CMP, 4548-4, 6873-4 #### [facility] ([id number]) [address] [place] [address] 60250 #### HA1C #### [facility] ([id number]) [address] [facility], [address] [place] [address] Bilirubin [Mass/Vol] 0.8 mg/dL Normal 0.3-1.2 [facility] Comment on above: Performed By: #### P INR, 24361-3, 41691-6, CBCA, 53937-3, CMP, 4548-4, 6873-4 #### [facility] ([id number]) [address] [place] [address] 60330 #### HA1C #### [facility] ([id number]) [address], [address] [place] [address] Calcium [Mass/Vol] 9.3 mg/dL Normal 8.5-10.5 [facility] Comment on above: Performed By: #### P INR, 15082-7, 39024-0, CBCA, 30739-1, CMP, 4548-4, 6873-4 #### [facility] ([id number]) [address] [place] [address] 61422 #### HA1C #### [facility] ([id number]) [address], [address] [place] [address] Chloride [Moles/Vol] 94 mmol/L Low 98-109 [facility] Comment on above: Performed By: #### P INR, 92790-9, 03652-1, CBCA, 30424-4, CMP, 4548-4, 6873-4 #### [facility] ([id number]) [address] [place] [address] 79846 #### HA1C #### [facility] ([id number]) [address], [address] [place] [address] CO2 [Moles/Vol] 26 mmol/L Normal 22-32 [facility] Comment on above: Performed By: #### P INR, 96068-9, 15821-5, CBCA, 88319-4, CMP, 4548-4, 6873-4 #### [facility] ([id number]) [address] [place] [address] 07736 #### HA1C #### [facility] ([id number]) [address], [address] [place] [address] Creatinine [Mass/Vol] 1.06 mg/dL Normal 0.70-1.20 [facility] Comment on above: Result Comment: METH OD TRACEABLE TO IDMS STANDARD Performed By: #### P INR, 80591-0, 91989-3, CBCA, 01081-4, CMP, 4548-4, 6873-4 #### [facility] ([id number]) [address] [place] [address] 07272 #### HA1C #### [facility] ([id number]) [address] [facility], [address] [place] [address] GFR/1.73 sq M.predicted among non-blacks MDRD (S/P/Bld) [Vol rate/Area] 75 mL/min/{1.73_m2} Normal >59 [facility] Comment on above: Result Comment: Reported eGFR is based on the CKD-EPI 2020 equation that does not use a race coefficient. Performed By: #### P INR, 38375-4, 96410-1, CBCA, 30754-1, CMP, 4548-4, 6873-4 #### [facility] ([id number]) [address] [place] [address] 67496 #### HA1C #### [facility] ([id number]) [address] [facility], [address] [place] [address] Glucose [Mass/Vol] 453 mg/dL Critically high 65-99 [facility] Comment on above: Performed By: #### P INR, 54384-0, 14296-4, CBCA, 66116-5, CMP, 4548-4, 6873-4 #### [facility] ([id number]) [address] [place] [address] 53087 #### HA1C #### [facility] ([id number]) [address] [facility], [address] [place] [address] Potassium [Moles/Vol] 4.5 mmol/L Normal 3.5-5.0 [facility] Comment on above: Performed By: #### P INR, 62287-2, 30677-3, CBCA, 68913-2, CMP, 4548-4, 6873-4 #### [facility] ([id number]) [address] [place] [address] 40765 #### HA1C #### [facility] ([id number]) [address], [address] [place] [address] Protein [Mass/Vol] 7.2 g/dL Normal 6.0-8.0 [facility] Comment on above: Performed By: #### P INR, 24466-9, 18767-0, CBCA, 53928-1, CMP, 4548-4, 6873-4 #### [facility] ([id number]) [address] [place] [address] 50185 #### HA1C #### [facility] ([id number]) [address], [address] [place] [address] Sodium [Moles/Vol] 130 mmol/L Low 134-146 [facility] Comment on above: Performed By: #### P INR, 19000-0, 44864-4, CBCA, 47117-2, CMP, 4548-4, 6873-4 #### [facility] ([id number]) [address] [place] [address] 81952 #### HA1C #### [facility] ([id number]) [address], [address] [place] [address] Urea nitrogen [Mass/Vol] 29 mg/dL High 5-27 [facility] Comment on above: Performed By: #### P INR, 89127-2, 95825-0, CBCA, 90785-3, CMP, 4548-4, 6873-4 #### [facility] ([id number]) [address] [place] [address] 27305 #### HA1C #### [facility] ([id number]) [address], [address] [place] [address] CT BRAIN WO CONTon 3 CT BRAIN [...] Denney MD on 10/26/2023 6:42 PM Normal [facility] DRUG SCREEN, URINEon 023 AMPHETAMINE/METHAMP Negative Normal NEG [facility] Comment on above: Result Comment: AMPH /METH screening cut off = 1000 ng/mL Performed By: #### P INR, 23217-7, 41465-8, CBCA, 00319-4, CMP, 4548-4, 6873-4 #### [facility] ([id number]) [address] [place] [address] 48689 #### HA1C #### [facility] ([id number]) [address] [facility], [address] [place] [address] BARBITURATES Negative Normal NEG [facility] Comment on above: Result Comment: Elsie iturates screening cut off value = 200 ng/mL Performed By: #### P INR, 34592-2, 22669-4, CBCA, 26301-1, CMP, 4548-4, 6873-4 #### [facility] ([id number]) [address] [place] [address] 33754 #### HA1C #### [facility] ([id number]) [address] [facility], [address] [place] [address] BENZODIAZEPINES Negative Normal NEG [facility] Comment on above: Result Comment: James odiazepines screening cut off value = 200 ng/mL Performed By: #### P INR, 93303-1, 94889-3, CBCA, 28449-4, CMP, 4548-4, 6873-4 #### [facility] ([id number]) [address] [place] [address] 42674 #### HA1C #### [facility] ([id number]) [address] [facility], [address] [place] [address] CANNABINOIDS Negative Normal NEG [facility] Comment on above: Result Comment: Shawn abinoids/THC screening cut off value = 50 ng/mL Performed By: #### P INR, 92977-5, 19513-5, CBCA, 46625-9, CMP, 4548-4, 6873-4 #### [facility] ([id number]) [address] [place] [address] 62492 #### HA1C #### [facility] ([id number]) [address] [facility], [address] [place] [id number] COCAINE METABOLITE Negative Normal NEG [facility] Comment on above: Result Comment: Coca ine screening cut off value = 300 ng/mL Performed By: #### P INR, 85451-9, 69674-3, CBCA, 82338-6, CMP, 4548-4, 6873-4 #### [facility] ([id number]) [address] [place] [address] 58546 #### HA1C #### [facility] ([id number]) [address] [facility], [address] [place] [address] ECSTASY Negative Normal NEG [facility] Comment on above: Result Comment: Ecst asy screening cut off value = 500 ng/mL This report is intended for use in clinical monitoring or management of patients. Performed By: #### P INR, 02607-5, 54281-0, CBCA, 53127-4, CMP, 4548-4, 6873-4 #### [facility] ([id number]) [address] [place] [address] 95530 #### HA1C #### [facility] ([id number]) [address] [place] [address], [address] [place] [address] METHADONE Negative Normal NEG [facility] Comment on above: Result Comment: Meth adone screening cut off value = 300 ng/mL. Performed By: #### P INR, 56177-5, 85364-0, CBCA, 58890-9, CMP, 4548-4, 6873-4 #### [facility] ([id number]) [address] [place] [address] 63138 #### HA1C #### [facility] ([id number]) [address] [place] [address], [address] [place] [address] OPIATES Negative Normal NEG [facility] Comment on above: Result Comment: Opia yanira screening cut off value = 300 ng/mL NOTE: This test is used for the detection of codeine, hydrocodone (>1000 ng/mL), morphine and hydromorphone (>900 ng/mL) in urine. Performed By: #### P INR, 75581-5, 70118-1, CBCA, 77069-4, CMP, 4548-4, 6873-4 #### [facility] ([id number]) [address] [place] [address] 98285 #### HA1C #### [facility] ([id number]) [address], [address] [place] [address] OXYCODONE Negative Normal NEG [facility] Comment on above: Result Comment: Oxyc odone screening cut off value = 300 ng/mL NOTE: This test is used for the detection of oxycodone and oxymorphone in urine. Performed By: #### P INR, 24152-7, 66613-5, CBCA, 61064-2, CMP, 4548-4, 6873-4 #### [facility] ([id number]) [address] [place] [address] 17876 #### HA1C #### [facility] ([id number]) [address] [facility], [address] [place] [address] PHENCYCLIDINE Negative Normal NEG [facility] Comment on above: Result Comment: Phen cyclidine screening cut off value = 25 ng/mL Performed By: #### P INR, 18361-0, 55442-2, CBCA, 41101-4, CMP, 4548-4, 6873-4 #### [facility] ([id number]) [address] [place] [address] 58941 #### HA1C #### [facility] ([id number]) [address] [facility], [address] [place] [address] Glucose Glucometer (BldC) [M ass/Vol]on 10-26-2023 Glucose [Mass/Vol] 286 mg/dL High 65-99 [facility] Glucose [Mass/Vol] 385 mg/dL High 65-99 [facility] HA1C CONFIRMATION - NO CHARG Ian 10-26-2023 HbA1c (Bld) [Mass fraction] 15.3 % High <=5.6 [facility] Comment on above: Result Comment: NOTE INTERPRETIVE INFORMATION: Hemoglobin A1c HbA1c values of 5.7-6.4 percent indicate an increased risk for developing diabetes mellitus. HbA1c values greater than or equal to 6.5 percent are diagnostic of diabetes mellitus. For diagnosis of diabetes in individuals without unequivocal hyperglycemia, results should be confirmed by repeat testing. Performed By: #### P INR, 00171-8, 49575-5, CBCA, 65941-7, CMP, 4548-4, 6873-4 #### [facility] ([id number]) [address] [place] [address] #### HA1C #### [facility] ([id number]) [address] [facility] [facility], [address] [place] [address] HGB A1C (GLYCO-HGB)on 2022 AVERAGE GLUCOSE >398 Normal [facility] Comment on above: Performed By: #### P INR, 85042-4, 17269-6, CBCA, 03062-3, CMP, 4548-4, 6873-4 #### [facility] ([id number]) [address] [place] [address] #### HA1C #### [facility] ([id number]) [address] [place] [address], [address] [place] [address] HbA1c (Bld) [Mass fraction] % High 4.4-5.6 [facility] Comment on above: Result Comment: NOTE ADA Guidelines Result HgbA1c Normal : less than 5.7 % Prediabetes : 5.7 % to 6.4 % Diabetes : > 6.4 % Use with caution in patients with abnormal hemoglobin variants as the half-life of red blood cells and in vivo glycation rates are affected. Performed By: #### P INR, 57575-9, 67677-7, CBCA, 12428-2, CMP, 4548-4, 6873-4 #### [facility] ([id number]) [address] [place] [address] #### HA1C #### [facility] ([id number]) [address], [address] [place] [address] HbA1c (Bld) [Mass fraction]o n 10-26-2023 Glucose [Mass/Vol] 392 mg/dL Normal [facility] Comment on above: Result Comment: NOTE Performed By: [facility] [address] [place] [address] Line Prep Cook: Aramis Taylor MD, PhD CLIA Number: [id number] Performed By: #### P INR, 50353-7, 51654-7, CBCA, 03690-8, CMP, 4548-4, 6873-4 #### [facility] ([id number]) [address] [place] [address] #### HA1C #### [facility] ([id number]) [address] [facility], [address] [place] [address] MAGNESIUMon 10-26-2023 Magnesium [Mass/Vol] 1.6 mg/dL Low 1.8-2.6 [facility] Comment on above: Performed By: #### P INR, 47144-6, 66826-0, CBCA, 17344-7, CMP, 4548-4, 6873-4 #### [facility] ([id number]) [address] [place] [address] #### HA1C #### [facility] ([id number]) [address], [address] [place] [address] PROTIME AND INRon 10-26-2023 INR Coag (PPP) [Relative time] 1.0 {INR} Normal 0.8-1.1 [facility] Comment on above: Performed By: #### P INR, 57532-7, 38802-8, CBCA, 41724-6, CMP, 4548-4, 6873-4 #### [facility] ([id number]) [address] [place] [address] #### HA1C #### [facility] [facility] ([id number]) [address], [address] [place] [address] PT Coag (PPP) [Time] 11.4 s Normal 9.8-13.2 [facility] Comment on above: Result Comment: NEW REFERENCE RANGE Performed By: #### P INR, 15419-4, 07525-6, CBCA, 53967-6, CMP, 4548-4, 6873-4 #### [facility] ([id number]) [address] [place] [address] #### HA1C #### [facility] ([id number]) [address], [address] [place] [address] TROPONIN Ion 10-26-2023 Troponin I.cardiac [Mass/Vol] 0.01 ng/mL Normal 0.00-0.04 [facility] Comment on above: Performed By: #### P INR, 36527-6, 97299-0, CBCA, 60000-4, CMP, 4548-4, 6873-4 #### [facility] ([id number]) [address] [place] [address] #### HA1C #### [facility] ([id number]) [address] [address], [address] [place] [address] URN MACROSCOPIC NURon 2022 BILIRUBIN ALLYN Negative Normal NEG [facility] Comment on above: Performed By: #### P INR, 28326-7, 24596-0, CBCA, 77897-7, CMP, 4548-4, 6873-4 #### [facility] ([id number]) [address] [place] [address] #### HA1C #### [facility] ([id number]) [address] [facility] [facility], [address] [place] [address] BLOOD/HGB ALLYN Trace Abnormal NEG [facility] Comment on above: Performed By: #### P INR, 72367-1, 79381-0, CBCA, 98795-9, CMP, 4548-4, 6873-4 #### [facility] ([id number]) [address] [place] [address] #### HA1C #### [facility] ([id number]) [address], [address] [place] [address] GLUCOSE ALLYN >=1000 Abnormal NEG [facility] Comment on above: Performed By: #### P INR, 57073-1, 73712-1, CBCA, 60039-1, CMP, 4548-4, 6873-4 #### [facility] ([id number]) [address] [place] [address] #### HA1C #### [facility] ([id number]) [address] [place] [address], [address] [place] [address] KETONES ALLYN 40 mg/dL Abnormal NEG [facility] Comment on above: Performed By: #### P INR, 10075-6, 82376-8, CBCA, 40251-0, CMP, 4548-4, 6873-4 #### [facility] ([id number]) [address] [place] [address] #### HA1C #### [facility] ([id number]) [address], [address] [place] [address] LEUKOCYTE ESTERASE ALLYN Negative Normal NEG Pr [facility] Comment on above: Performed By: #### P INR, 37253-4, 53343-6, CBCA, 69575-3, CMP, 4548-4, 6873-4 #### [facility] ([id number]) [address] [place] [address] #### HA1C #### [facility] ([id number]) [address] [place] [address], [address] [place] [address] NITRITE ALLYN Negative Normal NEG [facility] Comment on above: Performed By: #### P INR, 17152-3, 73160-3, CBCA, 05983-0, CMP, 4548-4, 6873-4 #### [facility] ([id number]) [address] [place] [address] #### HA1C #### [facility] ([id number]) [address] [place] [address], [address] [place] [address] PH ALLYN 5.5 Normal 5.0-8.5 [facility] Comment on above: Performed By: #### P INR, 29840-3, 50579-8, CBCA, 50811-8, CMP, 4548-4, 6873-4 #### [facility] ([id number]) [address] [place] [address] #### HA1C #### [facility] ([id number]) [address] [place] [address], [address] [place] [address] PROTEIN ALLYN Negative Normal NEG [facility] Comment on above: Performed By: #### P INR, 06094-3, 22191-5, CBCA, 23249-4, CMP, 4548-4, 6873-4 #### [facility] ([id number]) [address] [place] [address] #### HA1C #### [facility] ([id number]) [address] [place] [address], [address] [place] [address] SPECIFIC GRAVITY ALLYN 1.010 Normal 1.003-1.035 [facility] Comment on above: Performed By: #### P INR, 39593-4, 90839-9, CBCA, 45008-7, CMP, 4548-4, 6873-4 #### [facility] ([id number]) [address] [place] [address]87[address] #### HA1C #### [facility] ([id number]) [address], [address] [place] [address] UROBILINOGEN ALLYN 0.2 eu/dL Normal <1.1 [facility] Comment on above: Performed By: #### P INR, 07405-5, 89711-0, CBCA, 73688-2, CMP, 4548-4, 6873-4 #### [facility] ([id number]) [address] [place] [address] #### HA1C #### [facility] ([id number]) [address] [facility], [address] [place] [address] VENOUS BLOOD GASon 3 MICHELLE'S TEST Normal [facility] Comment on above: Performed By: #### V BG #### [facility] ([id number]) [address] [place] [address] Base excess Calc (Bld) [Moles/Vol] 0.0 mmol/L Normal 0.0-2.0 [facility] Comment on above: Performed By: #### V BG #### [facility] ([id number]) [address] [place] [address] Body temperature 98.6 [degF] Normal 37.0 [facility] Comment on above: Performed By: #### V BG #### [facility] ([id number]) [address] [place] [address] HCO3 (Bld) [Moles/Vol] 25.3 mmol/L High 20.0-24.0 [facility] Comment on above: Performed By: #### V BG #### [facility] ([id number]) [address] [place] [address] Oxygen saturation in Blood 73.0 % Low >80.0 [facility] Comment on above: Performed By: #### V BG #### [facility] ([id number]) [address] [place] [address] OXYGEN SOURCE [employer] Normal [facility] Comment on above: Performed By: #### V BG #### [facility] ([id number]) [address] [place] [address] PCO2, VENOUS 41.3 MMHG Normal 35-50 [facility] Comment on above: Performed By: #### V BG #### [facility] ([id number]) [address] [place] [address] PH, VENOUS 7.396 Normal 7.320-7.420 [facility] Comment on above: Performed By: #### V BG #### [facility] ([id number]) [address] [place] [address] PO2, VENOUS 39 MMHG Normal 30-50 [facility] Comment on above: Performed By: #### V BG #### [facility] ([id number]) [address] [place] [address] SAMPLE SITE N/A Normal [facility] Comment on above: Performed By: #### V BG #### [facility] ([id number]) [address] [place] [address] 16141 SAMPLE TYPE VENOUS Normal [facility] Comment on above: Performed By: #### V BG #### [facility] ([id number]) [address] [place] [address] XR CHEST 1 VWon 10-26-2023 XR CHEST [...] Keyes MD on 10/26/2023 6:36 PM Normal [facility] aPTT Coag (PPP) [Time]on aPTT Coag (Bld) [Time] 34 s Normal 26-37 Pr [facility] Comment on above: Result Comment: NEW REFERENCE RANGE Performed By: #### P INR, 70392-5, 06769-2, CBCA, 27330-5, CMP, 4548-4, 6873-4 #### [facility] ([id number]) [address] [place] [address], [place] [address] #### HA1C #### [facility] ([id number]) [address] [place] [address], [address] [place] [address] Vital Signs Date Time Vital Sign Value Performing Clinician Facility 10-25-2024 11:19-0500 Blood Pressure Location J[facility] 10-25-2024 11:19-0500 Diastolic blood pressure 70 mm[Hg] JAROCHO TRAYC-AMANKRA [facility] 10-25-2024 11:19-0500 Heart rate 72 /min JAROCHOTANYA TRACY-AMANKRA [facility] 10-25-2024 11:19-0500 Systolic blood pressure 123 mm[Hg] JAROCHO TRACY-AMFORD [facility] 10-06-2024 00:00-0500 Body temperature 98.6 [degF] Gricelda Perea MD Work Phone: [facility] 10-06-2024 00:00-0500 Diastolic blood pressure 63 mm[Hg] Gricelda Perea MD Work Phone: [facility] 10-06-2024 00:00-0500 Heart rate 70 /min Gricelda Perea MD Work Phone: [facility] 10-06-2024 00:00-0500 Respiratory rate 18 /min Gricelda Perea MD Work Phone: [facility] 10-06-2024 00:00-0500 SaO2% (BldA) [Mass fraction] 94 % Gricelda Perea MD Work Phone: [facility] 10-06-2024 00:00-0500 Systolic blood pressure 117 mm[Hg] Gricelda Perea MD Work Phone: [facility] 10-05-2024 06:00-0500 Body mass index (BMI) [Ratio] 26.19 kg/m2 Gricelda Perea MD Work Phone: [facility] 10-05-2024 06:00-0500 Body weight 82.8 kg Gricelda Perea MD Work Phone: [facility] 10-02-2024 05:24-0500 Body height 177.8 cm Gricelda Perea MD Work Phone: [facility] 03-31-2024 10:20-0400 Body height 180.34 cm [facility] 03-31-2024 10:20-0400 Body mass index (BMI) [Ratio] 34.9 kg/m2 [facility] 03-31-2024 10:20-0400 Body weight 113.53 kg [facility] 03-31-2024 10:20-0400 Diastolic blood pressure 73 mm[Hg] [facility] 03-31-2024 10:20-0400 Heart rate 79 /min [facility] 03-31-2024 10:20-0400 Respiratory rate 16 /min [facility] 03-31-2024 10:20-0400 Systolic blood pressure 149 mm[Hg] [facility] 03-26-2024 10:56-0400 Body height 180.34 cm [facility] 03-26-2024 10:56-0400 Body mass index (BMI) [Ratio] 34.9 kg/m2 [facility] 03-26-2024 10:56-0400 Body weight 113.62 kg [facility] 03-26-2024 10:56-0400 Diastolic blood pressure 81 mm[Hg] [facility] 03-26-2024 10:56-0400 Heart rate 86 /min [facility] 03-26-2024 10:56-0400 Respiratory rate 20 /min [facility] 03-26-2024 10:56-0400 Systolic blood pressure 157 mm[Hg] [facility] 01-23-2024 10:33-0400 Body height 180.34 cm [facility] 01-23-2024 10:33-0400 Body mass index (BMI) [Ratio] 36.1 kg/m2 [facility] 01-23-2024 10:33-0400 Body weight 117.65 kg [facility] 01-23-2024 10:33-0400 Diastolic blood pressure 69 mm[Hg] [facility] 01-23-2024 10:33-0400 Heart rate 71 /min [facility] 01-23-2024 10:33-0400 Respiratory rate 20 /min [facility] 01-23-2024 10:33-0400 Systolic blood pressure 159 mm[Hg] [facility] 12-30-2023 10:35-0500 Body height 177.8 cm Klaus Yeboah MD Work Phone: [facility] 12-30-2023 10:35-0500 Body mass index (BMI) [Ratio] 35.01 kg/m2 Klaus Yeboah MD Work Phone: [facility] 12-30-2023 10:35-0500 Body weight 110.68 kg Klaus Yeboah MD Work Phone: [facility] [employer] 12-11-2023 11:41-0500 Body height 177.8 cm Alexis Rojas MD Work Phone: [facility] [employer] [facility] 12-11-2023 11:41-0500 Body mass index (BMI) [Ratio] 35.01 kg/m2 Alexis Rojas MD Work Phone: [facility] 12-11-2023 11:41-0500 Body weight 110.68 kg Alexis Rojas MD Work Phone: [facility] [employer] [facility] 12-11-2023 11:41-0500 Diastolic blood pressure 73 mm[Hg] Alexis Rojas MD Work Phone: [facility] [employer] [facility] 12-11-2023 11:41-0500 Heart rate 90 /min Alexis Rojas MD Work Phone: [facility] 12-11-2023 11:41-0500 Systolic blood pressure 126 mm[Hg] Alexis Rojas MD Work Phone: [facility] [employer] [facility] 11-26-2023 10:45-0500 Body height 180.34 cm Vinnie Ball Other [facility] 11-26-2023 10:45-0500 Body mass index (BMI) [Ratio] 35.31 kg/m2 Vinnie Ball Other [facility] [employer] Other 11-26-2023 10:45-0500 Body weight 114.85 kg Vinnie Ball Other [facility] [employer] Other 11-26-2023 10:45-0500 Body weight 114.84 kg [facility] 11-26-2023 10:45-0500 Diastolic blood pressure 80 mm[Hg] Vinnie Ball Other [facility] 11-26-2023 10:45-0500 Respiratory rate 16 /min Vinnie Ball Other [facility] [employer] Other 11-26-2023 10:45-9300 Systolic blood pressure 132 mm[Hg] Vinnie Morfin [facility] Encounters Encounter Date Encounter Type Care Provider Facility Start: 01-21-2025 ambulatory JAROCHO POST Facility:[facility] Start: 10-25-2024 End: 10-25-2024 ambulatory JAROCHO POST Facility: [facility] Start: 10-25-2024 End: 10-25-2024 Patient encounter procedure JAROCHO POST [facility] Start: 10-12-2024 ambulatory JAROCHO POST Facility:[facility] Start: 10-12-2024 End: 10-12-2024 ambulatory Addy Ignacio PORTILLO Facility:CD:[id number] Start: 10-08-2024 End: 10-11-2024 External Result Encounter Gerard Platt DO Work Phone: [facility] Unsolicited Start: 10-08-2024 End: 10-11-2024 External Result Encounter Gerard Platt DO Work Phone: [facility] External [facility] Unsolicited Start: 10-08-2024 End: 10-10-2024 ambulatory Dionte Pereira Facility:CD:[id number] Start: 10-06-2024 End: 10-12-2024 Evaluation and management of inpatient Juany Sabillon Facility:[facility] Start: 10-02-2024 End: 10-06-2024 Evaluation and management of inpatient Gricelda Perea MD Work Phone: [address] Comment on above: Hematuria (Primary D x); Chronic indwelling Cyr catheter; Tobacco use Start: 10-01-2024 End: 10-01-2024 Telephone encounter Kathrin Deluca [facility] travis Comment on above: Urinary Retention; B lood in Urine Blood in Urine Start: 09-09-2024 End: 09-09-2024 [facility] Start: 06-15-2024 ambulatory SARAH READ [facility] Start: 06-05-2024 ambulatory VINNIE MAYORGA [facility] Start: 06-05-2024 Encounter for other preprocedural examination SARAH Urban [facility] Start: 06-05-2024 End: 06-11-2024 Evaluation and management of inpatient VINNIE Graham [facility] Start: 06-05-2024 End: 06-12-2024 Emergency department patient visit PATRIA BARRERASommer [facility] Start: 05-27-2024 End: 06-01-2024 Evaluation and management of inpatient VINNIE Santos [facility] Start: 05-13-2024 End: 05-13-2024 ambulatory VINNIE Santos [facility] Start: 05-12-2024 End: 05-13-2024 Emergency department patient visit BROOK Tamara BLOSSOMHAZEL [facility] Start: 04-13-2024 End: 04-13-2024 ambulatory VINNIE Santos [facility] Start: 04-10-2024 End: 04-21-2024 Evaluation and management of inpatient MIRNA BAJWA [facility] Start: 04-09-2024 End: 04-11-2024 Emergency department patient visit YUDELKA PARIKH [facility] Start: 04-09-2024 End: 04-10-2024 ambulatory VINNIE Graham [facility] Start: 03-31-2024 End: 03-31-[address] [facility] Work Phone: Start: 03-31-2024 End: 03-31-2024 Patient encounter procedure [facility] Work Phone: Start: 03-29-2024 End: 04-26-2024 [facility] Start: 03-26-2024 End: 03-26-[address] [facility] Work Phone: Start: 03-26-2024 End: 03-26-2024 Patient encounter procedure [facility] Work Phone: Start: 02-13-2024 End: 03-27-2024 ambulatory [facility] Start: 02-12-2024 End: 02-12-2024 ambulatory [facility] Start: 02-04-2024 End: 02-04-2024 ambulatory JASON RODRIGUEZ Not Available Start: 01-23-2024 End: 01-23-[address] [facility] Work Phone: Start: 01-23-2024 End: 01-23-2024 Patient encounter procedure [facility] Work Phone: Start: 12-30-2023 End: 12-30-2023 Office outpatient new 30 minutes Klaus Yeboah MD Work Phone: [facility] Comment on above: Arthritis of right k nee (Primary Dx); Right knee pain, unspecified chronicity Start: 12-30-2023 End: 12-30-2023 ambulatory [facility] Start: 12-11-2023 End: 12-11-2023 Office outpatient visit 25 minutes Alexis Rojas MD Work [facility]: [facility] Comment on above: Sequelae, post-strok e (Primary Dx); Cerebrovascular accident (CVA) due to thrombosis of precerebral artery ([facility]); Type 2 diabetes mellitus with hyperglycemia, with long-term current use of insulin ([facility]); Transient alteration of awareness; Mixed hyperlipidemia; Blurred vision; Gait instability Start: 12-11-2023 End: 12-11-2023 ambulatory [facility] Start: 12-01-2023 End: 12-01-2023 ambulatory Vinnie Mayorga Other [employer] Other Start: 12-01-2023 Telephone encounter Vinnie Mayorga LAKEISHA G [facility] Start: 11-26-2023 End: 11-26-2023 ambulatory Vinnie Mayorga Other [employer] Other Start: 11-26-2023 Office outpatient vi sit 25 minutes Vinnie Mukesh [facility] Start: 11-26-2023 Telephone encounter Vinnie Mukesh LAKEISHA G [facility] Start: 11-26-2023 End: 11-26-2023 Patient encounter procedure [facility] Start: 11-17-2023 Telephone encounter Alysha Gilbert RN [facility] Start: 11-05-2023 End: 11-05-2023 ambulatory VINNIE Graham MUKESH [facility] Start: 10-31-2023 Orders Only Alysha Gilbert RN [facility] Comment on above: Cerebrovascular acci dent (CVA) due to thrombosis of precerebral artery (CMS-HCC) (Primary Dx); Other cerebrovascular vasospasm and vasoconstriction Start: 10-28-2023 End: 10-30-2023 ambulatory [facility] Start: 10-28-2023 End: 10-30-2023 ambulatory [facility] Start: 10-28-2023 End: 10-30-2023 ambulatory HAMMAD Ninfa [facility] Start: 10-26-2023 End: 10-30-2023 Emergency department patient visit [facility] Start: 10-26-2023 End: 10-29-2023 Evaluation and management of inpatient [facility] Start: 05-09-[address] VINNIE Mcgraw ty:H1 Start: 11-27-[address] VINNIE Mcgraw ty:H1 Procedures Date Procedure Procedure Detail Performing Clinician Start: 10-08-2024 Sedimentation rate rbc automated Gerard Platt DO Work Phone: Start: 10-05-2024 Glucose quantitative blood xcpt reagent strip Gricelda Perea MD Work Phone: Start: 10-05-2024 Glucose quantitative blood xcpt reagent strip Gricelda Perea MD Work Phone: Start: 10-05-2024 End: 10-05-2024 Basic metabolic panel calcium total Tea Vargas [employer] COORDINATOR Work Phone: Start: 10-04-2024 Glucose quantitative blood xcpt reagent strip Gricelda Perea MD Work Phone: Start: 10-04-2024 Glucose quantitative blood xcpt reagent strip Gricelda Perea MD Work Phone: Start: 10-04-2024 Glucose quantitative blood xcpt reagent strip Gricelda Perea MD Work Phone: Start: 10-04-2024 Us abdominal real time w/image limited Yamileth Gilman PA-C Work Phone: Start: 10-04-2024 End: 10-04-2024 Basic metabolic panel calcium total Tea Vargas [employer] COORDINATOR Work Phone: Start: 10-03-2024 Glucose quantitative blood xcpt reagent strip Gricelda Perea MD Work Phone: Start: 10-03-2024 Blood count hematocrit Tea Vargas [employer] COORDINATOR Work Phone: Start: 10-03-2024 Glucose quantitative blood xcpt reagent strip Gricelda Perea MD Work Phone: Start: 10-03-2024 Glucose quantitative blood xcpt reagent strip Gricelda Perea MD Work Phone: Start: 10-03-2024 End: 10-03-2024 Comprehensive metabolic panel Hong Tello [employer] COORDINATOR Work Phone: Start: 10-02-2024 Glucose quantitative blood xcpt reagent strip Gricelda Perea MD Work Phone: Start: 10-02-2024 Glucose quantitative blood xcpt reagent strip Gricelda Perea MD Work Phone: Start: 10-02-2024 EXTRA URINE ALBA TUBE Hong Tello [employer] Work Phone: Start: 10-02-2024 Urinalysis complete W Reflex Culture panel - Urine Hong Tello [employer] COORDINATOR Work Phone: Start: 10-02-2024 Urnls dip stick/tablet reagent auto microscopy Hong Tello [employer] COORDINATOR Work Phone: Start: 10-02-2024 Glucose quantitative blood xcpt reagent strip Gricelda Perea MD Work Phone: Start: 10-02-2024 Ct abdomen & pelvis w/o contrast material Hong Tello [employer] COORDINATOR Work Phone: Start: 10-02-2024 Glucose quantitative blood xcpt reagent strip Gricelda Perea MD Work Phone: Start: 10-02-2024 Ecg routine ecg w/least 12 lds trcg only w/o i&r Hong Tello [employer] COORDINATOR Work Phone: Start: 10-02-2024 Comprehensive metabolic panel Hong Tello [employer] COORDINATOR Work Phone: Start: 04-19-2024 Colonoscopy Gricelda Perea MD Work Phone: Start: 02-12-2024 Follow-up visit Follow-up KLAUS YEBOAH Start: 12-11-2023 Adult depression screening assessment Alexis Rojas MD Work Phone: Start: 05-02-2016 Microalbumin [Mass/volume] in Urine by Test strip Alysha Gilbert RN History of operative procedure on knee History of arthroplasty of left knee History of operative procedure on knee JAR[facility]CHO POST History of repair of musculotendinous cuff of shoulder JAROCHO POST Plan of Treatment Date Care Activity Detail Author Start: 04-19-2034 Screening for malign ant neoplasm of [facility] Start: 2028 RSV High Risk: (Elde rly (60+) or Population) (1 - 1-dose 75+ series) RSV High Risk: (Elderly (60+) or Population) (1 - 1-dose 75+ series) [facility] Start: 06-07-2025 Adult BMI Screening Adult BMI Screen ing [facility] Start: 06-06-2025 Tobacco Screening Tobacco Screening [facility] Start: 12-29-2024 Adult BMI Screening Adult BMI Screen ing [facility] Start: 12-29-2024 Tobacco Screening Tobacco Screening [facility] Start: 12-11-2024 Adult BMI Screening Adult BMI Screen ing [facility] Start: 12-11-2024 Depression Screening Depression Scre ening [facility] Start: 12-11-2024 Tobacco Screening Tobacco Screening [facility] Start: 10-29-2024 Adult BMI Screening Adult BMI Screen ing [facility] [facility] Start: 10-26-2024 Tobacco Screening Tobacco Screening [facility] Start: 06-27-2024 COVID-19 Vaccine ( season) COVID-19 Vaccine ( season) [facility] Start: 06-27-2024 Influenza vaccination P [facility] Start: 03-11-2024 End: 03-11-2024 Patient encounter procedure 03/11/2024 3:30 PM EDT Office Visit [facility] [address] [place] [phone] Alexis Rojas MD [address] [place] [address], [address] [phone] [facility] Start: 12-11-2023 End: 12-11-2023 Patient encounter procedure 12/11/2023 11:30 AM EST Office Visit [facility] [address] [place] [phone] Alexis Rojas MD [address] [place] [address], [address] [place] [phone] [facility] Start: 12-04-2023 End: 12-04-2023 Patient encounter procedure 12/04/2023 9:00 AM EST Office Visit [facility] [address] [place] [address] [place] [phone] Ally Easton MD [address], [place], [place] [id number] [facility] Start: 10-31-2023 End: 10-31-2024 Event Monitor (In Office) [employer] Work Phone: Comment on above: Expected: 10/31/2023 , Expires: 10/31/2024 Start: 06-27-2023 Influenza vaccination Influenza Vacc ine [facility] Start: 2018 Abdominal aortic aneurysm screening [facility] Start: 2018 Fall Risk Screening Fall Risk Screen ing [facility] Start: 05-02-2017 Urine screening for protein Urine Microalbumin [facility] Start: 2003 Administration of varicella zoster vaccine Zoster (Shingles) Vaccine (1 of 2) [facility] Start: 2003 Screening for malign ant neoplasm of lung Lung Cancer Screening [facility] Start: 2003 Zoster Vaccines (1 of 2) Zoste r Vaccines (1 of 2) [facility] Start: 1975 DTaP/Tdap/Td Vaccine s (1 - Tdap) DTaP/Tdap/Td Vaccines (1 - Tdap) [facility] Start: 1972 DTaP,Tdap and Td Vaccines (1 - Tdap) DTaP,Tdap and Td Vaccines (1 - Tdap) [facility] Start: 1971 Adult BMI Follow Up Plan Adult BMI Follow Up Plan [facility] Start: 1971 Diabetic foot examination Diabetic Foot Exam [facility] Start: 1971 Hepatitis C screening Hepatitis C Sc reening [facility] Start: 1965 Depression Screening Depression Scre ening [facility] Start: 1959 Pneumococcal Vaccine : 65+ Years (1 of 2 - PCV) Pneumococcal Vaccine: 65+ Years (1 of 2 - PCV) [facility] Start: 1953 Glaucoma screening Diabetic Op hthalmology Exam [facility] Start: 1953 Lipid panel Lipid Panel [facility] Start: 1953 Medicare Annual Well ness Visit [facility] Start: 1953 Screening for malign ant neoplasm of colon [facility] Start: 1953 Tobacco Counseling Tobacco Counselin g [facility] Basic metabolic 2000 panel - Serum or Plasma Basic Metabolic Panel Lab Routine Morning draw (Lab) until discontinued starting 10/04/2024, 2 completed [facility] Service Area Work Phone: Comment on above: Morning draw (Lab) u ntil discontinued starting 10/04/2024, 2 completed CBC panel - Blood by Automated count CBC Lab Routine Morning draw (Lab) until discontinued starting 10/03/2024, 3 completed [facility] Work Phone: Comment on above: Morning draw (Lab) u ntil discontinued starting 10/03/2024, 3 completed ECG 12 Lead ECG 12 Lead ECG Routine As needed until discontinued starting 10/02/2024 [facility] Work Phone: Comment on above: As needed until disc ontinued starting 10/02/2024 Glucose [Mass/volume ] in Serum or Plasma POCT Glucose Point of Care Testing - Docked Device Routine As needed (Lab) until discontinued starting 10/02/2024 [facility] Work Phone: Comment on above: As needed (Lab) unti l discontinued starting 10/02/2024 Iron and Iron bindin g capacity panel - Serum or Plasma Iron and TIBC Lab Routine 10/08/2024 7:05 PM EST [facility] Work Phone: End: 10-02-2024 Irrigation of Bladder Irrigation of Bladder Procedures Routine Continuous until discontinued starting 10/02/2024 [facility] Service Area Work Phone: Comment on above: Continuous until dis continued starting 10/02/2024 End: 12-29-2024 Large Joint Injection/Arthrocentesis - PA Large Joint Injection/Arthrocentesi s - PA Procedures Routine Right knee pain, unspecified chronicity Arthritis of right knee 1 Occurrences starting 12/30/2023 until 12/29/2024 [employer] Work Phone: Comment on above: 1 Occurrences starti ng 12/30/2023 until 12/29/2024 Magnesium [Mass/volu me] in Serum or Plasma Magnesium Lab Routine Morning draw (Lab) until discontinued starting 10/03/2024, 3 completed [facility] Work Phone: Comment on above: Morning draw (Lab) u ntil discontinued starting 10/03/2024, 3 completed End: 12-29-2024 Nicotine screen, urine Nicotine screen, urine Lab Routine Arthritis of right knee 1 Occurrences starting 12/30/2023 until 12/29/2024 [employer] Comment on above: 1 Occurrences starti ng 12/30/2023 until 12/29/2024 Phosphate [Mass/volu me] in Serum or Plasma Phosphorus Lab Routine Morning draw (Lab) until discontinued starting 10/03/2024, 3 completed [facility] Work Phone: Comment on above: Morning draw (Lab) u ntil discontinued starting 10/03/2024, 3 completed [facility] Immunizations Immunization Date Immunization Notes Care Provider Fortino rouse 07-08-2018 influenza virus vaccine, split virus (incl. purified surface antigen) Vinnie Mayorga Other [employer] Other 07-08-2018 influenza virus vaccine, unspecified formulation [facility] Payers Date Payer Category Payer Medicaid [id number] 2024 Medicare [id number] 2021 Medicaid [employer] MEDICARE A DVANTAGE [id number] 2021 Medicare AETNA MEDICARE A ETNA MEDICARE PLAN (PPO) [id number] 2021-Present [phone] [address] [place]AM[place] [id number] 2021 Medicare (Managed Care) AETNA [facility] MEDICARE [id number] 2021 Medicare HMO AET[employer] MEDICARE [id number] 2021 Medicare [id number] 1959 Self-pay 1953 Unknown [id number] 2.16.840.1.050092.3.579.2. 593 1953 Unknown [id number] 2.16.840.1.339097.3.579.2. 593 1953 Unknown [id number] 2.16.840.1.198123.3.579.2. 1259 1953 Unknown [id number] 2.16.840.1.068898.3.579.2. 1286 1953 Unknown [id number] 2.16.840.1.635430.3.579.2. 1286 1953 Unknown [id number] 2.16.840.1.902049.3.579.2. 128 1953 Unknown [id number] 2.16.840.1.166709.3.579.2. 128 1953 Unknown [id number] 2.16.840.1.714850.3.579.2. 128 1953 Unknown [id number] 2.16.840.1.938885.3.579.2. 128 1953 Unknown [id number] 2.16.840.1.533767.3.579.2. 128 1953 Unknown [id number] 2.16.840.1.182701.3.579.2. 1286 1953 Unknown [id number] 2.16.840.1.242617.3.579.2. 1286 1953 Unknown [id number] 2.16.840.1.888718.3.579.2. 1286 1953 Unknown [id number] 2.16.840.1.337523.3.579.2. 128 1953 Unknown [id number] 2.16.840.1.035424.3.579.2. 128 1953 Unknown [id number] 2.16.840.1.841700.3.579.2. 1286 1953 Unknown [id number] 2.16.840.1.657063.3.579.2. 1286 1953 Unknown [id number] 2.16.840.1.882890.3.579.2. 1285 1953 Unknown [id number] 2.16.840.1.654324.3.579.2. 128 1953 Unknown [id number] 2.16.840.1.283300.3.579.2. 1285 1953 Unknown [id number] 2.16.840.1.400287.3.579.2. 1285 1953 Unknown [id number] 2.16.840.1.639835.3.579.2. 1285 1953 Unknown [id number] 2.16.840.1.099048.3.579.2. 1285 1953 Unknown [id number] 2.16.840.1.882786.3.579.2. 1285 1953 Unknown [id number] 2.16.840.1.674687.3.579.2. 1285 1953 Unknown [id number] 2.16.840.1.990394.3.579.2. 1285 1953 Unknown [id number] 2.16.840.1.104255.3.579.2. 1285 1953 Unknown [id number] 2.16.840.1.930788.3.579.2. 1285 1953 Unknown [id number] 2.16.840.1.345121.3.579.2. 1285 1953 Unknown [id number] 2.16.840.1.684777.3.579.2. 1285 1953 Unknown [id number] 2.16.840.1.053446.3.579.2. 1285 1953 Unknown [id number] 2.16.840.1.091939.3.579.2. 12853 Unknown [id number] 2.16.840.1.855790.3.579.2. 1286 1953 Unknown [id number] 2.16.840.1.325127.3.579.2. 1286 1953 Unknown [id number] 2.16.840.1.358619.3.579.2. 1286 1953 Unknown [id number] 2.16.840.1.656770.3.579.2. 1286 1953 Unknown [id number] 2.16.840.1.068842.3.579.2. 1286 1953 Unknown [id number] 2.16.840.1.157828.3.579.2. 1286 1953 Unknown [id number] 2.16.840.1.276190.3.579.2. 1286 1953 Unknown [id number] 2.16.840.1.054742.3.579.2. 1243 1953 Unknown [id number] 2.16.840.1.441589.3.579.2. 727 1953 Unknown [id number] 2.16.840.1.088172.3.579.2. 727 1953 Unknown [id number] 2.16.840.1.526297.3.579.2. 727 1953 Unknown [id number] 2.16.840.1.509891.3.579.2. 727 1953 Unknown [id number] 2.16.840.1.692736.3.579.2. 727 Unknown [id number] 2.16.840.1.747196.19 Unknown [id number] 2.16.840.1.396025.3.579.2. 531 Social History Date Type Detail Facility Start: 10-27-1960 End: 10-02-2024 Tobacco smoking status NHIS Smokes tobacco daily [facility] Start: [birth year]-27-1960 History of tobacco use Cigarette Smo ker [facility] Start: 10-26-2023 End: 10-02-2024 Tobacco use and exposure Smokeless tobacco non-user [facility] Start: 10-26-2023 End: 04-29-2024 Alcohol intake Ex-drinker (finding) [facility] Start: 10-26-2023 End: 02-12-2024 History of Social function [facility] Start: 10-26-2023 End: 02-12-2024 Tobacco use panel [facility] Housing Instability Unknown [facility] Start: 1955 Sex Assigned At Not on file P [facility] Start: 1955 Sex Assigned At Male F [facility] How often to you hav e a drink containing alcohol? Never [facility] Start: 06-01-2015 Sex Male (finding) [facility] History of tobacco use Passive smoker [facility] Work Phone: Within the last year , have you been afraid of your partner or ex-partner? No [facility] Work Phone: Start: 09-22-2024 End: 10-02-2024 Exposure to SARS-CoV-2 (event) Not sure [facility] Work Phone: Start: 02-12-2024 Tobacco smoking stat us NHIS Never smoked tobacco [facility] Start: 10-25-2024 Tobacco smoking status Ex-smoker (fi nding) [facility] Goals Date Patient Goal Desired Activity /State Personal health goal Comment on above: Formatting of this n ote might be different from the original. Evaluation of progress towards goal: In progress: DC to home with home health, support from dtr and new 2-wheeled walker. Personal health goal Comment on above: Formatting of this n ote might be different from the original. Evaluation of progress towards goal: Current Discharge Plan; SNF- Return to [facility] Functional Status Date Assessment Result Facility 10-25-2024 Functional Status N/A [facility] Clinical Notes 11-17-2023 to 10-25-2024 Mehnaz Campos, PT - 10/05/2024 12:38 PM Emmy Cordova RN - 10/05/2024 10:32 AM Kady Perea MD - 10/04/2024 7:22 PM Margo Flannery APRN-WARRANTY COORDINATOR - 10/04/2024 3:32 PM EST Note Date & Type Note Facility 10-25-2024 Hospital Discharge instructions Patient Education 10/25/2024 11:18:58 Benign Prostatic Hyperplasia Benign Prostatic Hyperplasia Benign prostatic hyperplasia (BPH) is an enlarged prostate gland that is caused by the normal aging process. The prostate may get bigger as a man gets older. The condition is not caused by cancer. The prostate is a walnut-sized gland that is involved in the production of semen. It is located in front of the rectum and below the bladder. The bladder stores urine. The urethra carries stored urine out of the body. An enlarged prostate can press on the urethra. This can make it harder to pass urine. The buildup of urine in the bladder can cause infection. Back pressure and infection may progress to bladder damage and kidney (renal) failure. What are the causes? This condition is part of the normal aging process. However, not all men develop problems from this condition. If the prostate enlarges away from the urethra, urine flow will not be blocked. If it enlarges toward the urethra and compresses it, there will be problems passing urine. What increases the risk? This condition is more likely to develop in men older than 50 years. What are the signs or symptoms? Symptoms of this condition include: Getting up often during the night to urinate. Needing to urinate frequently during the day. Difficulty starting urine flow. Decrease in size and strength of your urine stream. Leaking (dribbling) after urinating. Inability to pass urine. This needs immediate treatment. Inability to completely empty your bladder. Pain when you pass urine. This is more common if there is also an infection. Urinary tract infection (UTI). How is this diagnosed? This condition is diagnosed based on your medical history, a physical exam, and your symptoms. Tests will also be done, such as: A post-void bladder scan. This measures any amount of urine that may remain in your bladder after you finish urinating. A digital rectal exam. In a rectal exam, your health care provider checks your prostate by putting a lubricated, gloved finger into your rectum to feel the back of your prostate gland. This exam detects the size of your gland and any abnormal lumps or growths. An exam of your urine (urinalysis). A prostate specific antigen (PSA) screening. This is a blood test used to screen for prostate cancer. An ultrasound. This test uses sound waves to electronically produce a picture of your prostate gland. Your health care provider may refer you to a specialist in kidney and prostate diseases (urologist). How is this treated? Once symptoms begin, your health care provider will monitor your condition (active surveillance or watchful waiting). Treatment for this condition will depend on the severity of your condition. Treatment may include: Observation and yearly exams. This may be the only treatment needed if your condition and symptoms are mild. Medicines to relieve your symptoms, including: ?Medicines to shrink the prostate. ?Medicines to relax the muscle of the prostate. Surgery in severe cases. Surgery may include: ?Prostatectomy. In this procedure, the prostate tissue is removed completely through an open incision or with a laparoscope or robotics. ?Transurethral resection of the prostate (TURP). In this procedure, a tool is inserted through the opening at the tip of the penis (urethra). It is used to cut away tissue of the inner core of the prostate. The pieces are removed through the same opening of the penis. This removes the blockage. ?Transurethral incision (TUIP). In this procedure, small cuts are made in the prostate. This lessens the prostate's pressure on the urethra. ?Transurethral microwave thermotherapy (TUMT). This procedure uses microwaves to create heat. The heat destroys and removes a small amount of prostate tissue. ?Transurethral needle ablation (TUNA). This procedure uses radio frequencies to destroy and remove a small amount of prostate tissue. ?Interstitial laser coagulation (ILC). This procedure uses a laser to destroy and remove a small amount of prostate tissue. ?Transurethral electrovaporization (TUVP). This procedure uses electrodes to destroy and remove a small amount of prostate tissue. ?Prostatic urethral lift. This procedure inserts an implant to push the lobes of the prostate away from the urethra. Follow these instructions at home: Take gwwg-vit-akqlmgw and prescription medicines only as told by your health care provider. Monitor your symptoms for any changes. Contact your health care provider with any changes. Avoid drinking large amounts of liquid before going to bed or out in public. Avoid or reduce how much caffeine or alcohol you drink. Give yourself time when you urinate. Keep all follow-up visits. This is important. Contact a health care provider if: You have unexplained back pain. Your symptoms do not get better with treatment. You develop side effects from the medicine you are taking. Your urine becomes very dark or has a bad smell. Your lower abdomen becomes distended and you have trouble passing urine. Get help right away if: You have a fever or chills. You suddenly cannot urinate. You feel light-headed or very dizzy, or you faint. There are large amounts of blood or clots in your urine. Your urinary problems become hard to manage. You develop moderate to severe low back or flank pain. The flank is the side of your body between the ribs and the hip. These symptoms may be an emergency. Get help right away. Call 911. Do not wait to see if the symptoms will go away. Do not drive yourself to the hospital. Summary Benign prostatic hyperplasia (BPH) is an enlarged prostate that is caused by the normal aging process. It is not caused by cancer. An enlarged prostate can press on the urethra. This can make it hard to pass urine. This condition is more likely to develop in men older than 50 years. Get help right away if you suddenly cannot urinate. This information is not intended to replace advice given to you by your health care provider. Make sure you discuss any questions you have with your health care provider. Document Revised: 05/01/2022 Document Reviewed: 05/01/2022 [employer] Patient Education 2023 [employer]. Follow Up Care 10/12/2024 13:12:51 With:JAROCHO POST MD, URL Address: When: Unknown [facility] 10-25-2024 Note Patient Education Urology Benign Prostatic Hyperplasia Benign prostatic hyperplasia (BPH) is an enlarged prostate gland that is caused by the normal aging process. The prostate may get bigger as a man gets older. The condition is not caused by cancer. The prostate is a walnut-sized gland that is involved in the production of semen. It is located in front of the rectum and below the bladder. The bladder stores urine. The urethra carries stored urine out of the body. An enlarged prostate can press on the urethra. This can make it harder to pass urine. The buildup of urine in the bladder can cause infection. Back pressure and infection may progress to bladder damage and kidney (renal) failure. What are the causes? This condition is part of the normal aging process. However, not all men develop problems from this condition. If the prostate enlarges away from the urethra, urine flow will not be blocked. If it enlarges toward the urethra and compresses it, there will be problems passing urine. What increases the risk? This condition is more likely to develop in men older than 50 years. What are the signs or symptoms? Symptoms of this condition include: ??? Getting up often during the night to urinate. ??? Needing to urinate frequently during the day. ??? Difficulty starting urine flow. ??? Decrease in size and strength of your urine stream. ??? Leaking (dribbling) after urinating. ??? Inability to pass urine. This needs immediate treatment. ??? Inability to completely empty your bladder. ??? Pain when you pass urine. This is more common if there is also an infection. ??? Urinary tract infection (UTI). How is this diagnosed? This condition is diagnosed based on your medical history, a physical exam, and your symptoms. Tests will also be done, such as: ??? A post-void bladder scan. This measures any amount of urine that may remain in your bladder after you finish urinating. ??? A digital rectal exam. In a rectal exam, your health care provider checks your prostate by putting a lubricated, gloved finger into your rectum to feel the back of your prostate gland. This exam detects the size of your gland and any abnormal lumps or growths. ??? An exam of your urine (urinalysis). ??? A prostate specific antigen (PSA) screening. This is a blood test used to screen for prostate cancer. ??? An ultrasound. This test uses sound waves to electronically produce a picture of your prostate gland. Your health care provider may refer you to a specialist in kidney and prostate diseases (urologist). How is this treated? Once symptoms begin, your health care provider will monitor your condition (active surveillance or watchful waiting). Treatment for this condition will depend on the severity of your condition. Treatment may include: ??? Observation and yearly exams. This may be the only treatment needed if your condition and symptoms are mild. ??? Medicines to relieve your symptoms, including: ? Medicines to shrink the prostate. ? Medicines to relax the muscle of the prostate. ??? Surgery in severe cases. Surgery may include: ? Prostatectomy. In this procedure, the prostate tissue is removed completely through an open incision or with a laparoscope or robotics. ? Transurethral resection of the prostate (TURP). In this procedure, a tool is inserted through the opening at the tip of the penis (urethra). It is used to cut away tissue of the inner core of the prostate. The pieces are removed through the same opening of the penis. This removes the blockage. ? Transurethral incision (TUIP). In this procedure, small cuts are made in the prostate. This lessens the prostate's pressure on the urethra. ? Transurethral microwave thermotherapy (TUMT). This procedure uses microwaves to create heat. The heat destroys and removes a small amount of prostate tissue. ? Transurethral needle ablation (TUNA). This procedure uses radio frequencies to destroy and remove a small amount of prostate tissue. ? Interstitial laser coagulation (ILC). This procedure uses a laser to destroy and remove a small amount of prostate tissue. ? Transurethral electrovaporization (TUVP). This procedure uses electrodes to destroy and remove a small amount of prostate tissue. ? Prostatic urethral lift. This procedure inserts an implant to push the lobes of the prostate away from the urethra. Follow these instructions at home: ??? Take uqex-gus-uswtfur and prescription medicines only as told by your health care provider. ??? Monitor your symptoms for any changes. Contact your health care provider with any changes. ??? Avoid drinking large amounts of liquid before going to bed or out in public. ??? Avoid or reduce how much caffeine or alcohol you drink. ??? Give yourself time when you urinate. ??? Keep all follow-up visits. This is important. Contact a health care provider if: ??? You have unexplained back pain. ??? Your symptoms do not get (more content not included)... [facility] 10-05-2024 History of Present illness Narrative Physical Therapy Therapy Communication Note Patient Name: Vashti Massey Department: [address] Room: [address] [place] [address] Today's Date: 10/05/2024 Discipline: Physical Therapy Comment: PT orders received, chart reviewed. Pt is LTC resident at [facility] and will return when medically ready. Pt without acute skilled therapy needs at this time. Will DC OT orders. 10/05/24 1032 Discharge Planning Living Arrangements Alone Support Systems Children Assistance Needed yes Type of Residence long-term/residential half-way or Post Acute Services Post acute facilities (Rehab/SNF/etc) Type of Post Acute Facility Services intermediate care Expected Discharge Disposition Inter Financial Resource Strain How hard is it for you to pay for the very basics like food, housing, medical care, and heating? Not hard Housing Stability In the last 12 months, was there a time when you were not able to pay the mortgage or rent on time? N At any time in the past 12 months, were you homeless or living in a half-way (including now)? N Transportation Needs In the past 12 months, has lack of transportation kept you from medical appointments or from getting medications? no In the past 12 months, has lack of transportation kept you from meetings, work, or from getting things needed for daily living? No Voice left for Jessica Ulrich at [facility] to verify patient's admission status intermediate or skilled. Facility number; [phone] . Voice mail left for emergency contact, daughter Bhumika at [phone]. Message sent to [facility] to send a return referral to [facility] to return today. 1150: I spoke with patient's daughter, Bhumika [phone] and she confirmed her dad will return to [facility] (fax: [phone]). Facility can accept the patient's return today. 1330: Stretcher transport arranged for [place] today at 4:30 . Patient's daughter, Bhumika notified, bedside and facility notified. Vashti Massey is a 69 y.o. male on day 2 of admission presenting with Hematuria. Subjective No cp Objective Current Facility-Administered Medications: acetaminophen (Tylenol) tablet 650 mg, 650 mg, oral, q6h PRN, Hong Tello, WILDLAND FIRE FIGHTER-WARRANTY COORDINATOR, 650 mg at 10/03/24 1440 [START ON 10/05/2024] aspirin EC tablet 81 mg, 81 mg, oral, Daily, Tea Vargas APRN-WARRANTY COORDINATOR atorvastatin (Lipitor) tablet 40 mg, 40 mg, oral, Nightly, Yamielth Gilman PA-C bisacodyl (Dulcolax) EC tablet 10 mg, 10 mg, oral, Daily, Hong Tello, WILDLAND FIRE FIGHTER-WARRANTY COORDINATOR, 10 mg at 10/04/24 0928 dextrose 50 % injection 12.5 g, 12.5 g, intravenous, q15 min PRN, Hong Tello, WILDLAND FIRE FIGHTER-WARRANTY COORDINATOR dextrose 50 % injection 25 g, 25 g, intravenous, q15 min PRN, Hong Tello, WILDLAND FIRE FIGHTER-WARRANTY COORDINATOR gabapentin (Neurontin) capsule 100 mg, 100 mg, oral, TID, Yamileth Gilman PA-C, 100 mg at 10/04/24 1733 gadoterate meglumine (Dotarem) 0.5 mmol/mL contrast injection 17 mL, 17 mL, intravenous, Once in imaging, Gricelda Perea MD glucagon (Glucagen) injection 1 mg, 1 mg, intramuscular, q15 min PRN, Hong Tello, WILDLAND FIRE FIGHTER-YUKI glucagon (Glucagen) injection 1 mg, 1 mg, intramuscular, q15 min PRN, Hong Tello, WILDLAND FIRE FIGHTER-WARRANTY COORDINATOR glycine 1.5 % irrigation solution 3,000 mL, 3,000 mL, irrigation, Continuous, Yamileth Gilman PA-C, 3,000 mL at 10/02/24 1748 insulin glargine (Lantus) injection 15 Units, 15 Units, subcutaneous, Nightly, Yamileth Gilman PA-C insulin lispro injection 0-10 Units, 0-10 Units, subcutaneous, Before meals & nightly, Hong Tello, WILDLAND FIRE FIGHTER-WARRANTY COORDINATOR, 4 Units at 10/04/24 173 magnesium hydroxide (Milk of Magnesia) 400 mg/5 mL suspension 5 mL, 5 mL, oral, Daily PRN, Yamileth Gilman PA-C magnesium oxide (Mag-Ox) tablet 400 mg, 400 mg, oral, Daily, Yamileth Gilman PA-C, 400 mg at 10/04/24 173 melatonin tablet 3 mg, 3 mg, oral, Nightly PRN, Hong Holdeni WILDLAND FIRE FIGHTER-YUKI, 3 mg at 10/03/24 211 metoprolol succinate XL (Toprol-XL) 24 hr tablet 50 mg, 50 mg, oral, Daily, Yamileth Gilman PA-C, 50 mg at 10/04/24 173 nicotine (Nicoderm CQ) 21 mg/24 hr patch 1 patch, 1 patch, transdermal, Daily, 1 patch at 10/04/24 0928 FOLLOWED BY [START ON 11/13/2024] nicotine (Nicoderm CQ) 14 mg/24 hr patch 1 patch, 1 patch, transdermal, Daily FOLLOWED BY [START ON 11/27/2024] nicotine (Nicoderm CQ) 7 mg/24 hr patch 1 patch, 1 patch, transdermal, Daily, Hong Tello, WILDLAND FIRE FIGHTER-WARRANTY COORDINATOR pantoprazole (ProtoNix) EC tablet 40 mg, 40 mg, oral, Daily before breakfast, Hong Tello, WILDLAND FIRE FIGHTER-WARRANTY COORDINATOR, 40 mg at 10/04/24 0603 polyethylene glycol (Glycolax, Miralax) packet 17 g, 17 g, oral, Daily, Hong Tello, WILDLAND FIRE FIGHTER-WARRANTY COORDINATOR, 17 g at 10/03/24 0852 sennosides (Senokot) tablet 17.2 mg, 2 tablet, oral, Daily, Hong Tello, WILDLAND FIRE FIGHTER-WARRANTY COORDINATOR, 17.2 mg at 10/04/24 0928 tamsulosin (Flomax) 24 hr capsule 0.4 mg, 0.4 mg, oral, Daily, Hong GrantNANCY-YUKI, 0.4 mg at 10/04/24 0928 [START ON 10/05/2024] ticagrelor (Brilinta) tablet 90 mg, 90 mg, oral, BID, Tea Mcdonald NANCY Vargas-YUKI traZODone (Desyrel) tablet 25 mg, 25 mg, oral, Nightly, Yamileth Gilman PA-C Physical Exam HENT: Head: Normocephalic. Eyes: Conjunctiva/sclera: Conjunctivae normal. Cardiovascular: Rate and Rhythm: Regular rhythm. Pulmonary: Breath sounds: Normal breath sounds. Abdominal: General: Bowel sounds are normal. Palpations: Abdomen is soft. Musculoskeletal: General: Normal range of motion. Skin: General: Skin is warm and dry. Neurological: General: No focal deficit present. Mental Status: He is alert. Psychiatric: Behavior: Behavior normal. Last Recorded Vitals Blood pressure (!) 136/93, pulse 94, temperature 35.9 C (96.6 F), temperature source Temporal, resp. rate 19, height 1.778 m (5' 10 ), weight 86.3 kg (190 lb 3.2 oz), SpO2 94%. Intake/Output last 3 Shifts: I/O last 3 completed shifts: In: 360 (4.2 mL/kg) [P.O.:360] Out: 3490 (40.5 mL/kg) [Urine:3490 (1.1 mL/kg/hr)] Weight: 86.3 kg Labs: Results for orders placed or performed during the hospital encounter of 10/02/24 (from the past 24 hours) POCT GLUCOSE Result Value Ref Range POCT Glucose 199 (H) 74 - 99 mg/dL CBC Result Value Ref Range WBC 5.2 4.4 - 11.3 x10*3/uL nRBC 0.0 0.0 - 0.0 /100 WBCs RBC 3.93 (L) 4.50 - 5.90 x10*6/uL Hemoglobin 10.5 (L) 13.5 - 17.5 g/dL Hematocrit 32.9 (L) 41.0 - 52.0 % MCV 84 80 - 100 fL MCH 26.7 26.0 - 34.0 pg MCHC 31.9 (L) 32.0 - 36.0 g/dL RDW 16.2 (H) 11.5 - 14.5 % Platelets 270 150 - 450 x10*3/uL Magnesium Result Value Ref Range Magnesium 1.81 1.60 - 2.40 mg/dL Phosphorus Result Value Ref Range Phosphorus 4.3 2.5 - 4.9 mg/dL Basic Metabolic Panel Result Value Ref Range Glucose 169 (H) 74 - 99 mg/dL Sodium 136 136 - 145 mmol/L Potassium 3.8 3.5 - 5.3 mmol/L Chloride 100 98 - 107 mmol/L Bicarbonate 27 21 - 32 mmol/L Anion Gap 13 10 - 20 mmol/L Urea Nitrogen 18 6 - 23 mg/dL Creatinine 0.55 0.50 - 1.30 mg/dL eGFR >90 >60 mL/min/1.73m*2 Calcium 9.4 8.6 - 10.3 mg/dL POCT GLUCOSE Result Value Ref Range POCT Glucose 175 (H) 74 - 99 mg/dL POCT GLUCOSE Result Value Ref Range POCT Glucose 171 (H) 74 - 99 mg/dL POCT GLUCOSE Result Value Ref Range POCT Glucose 224 (H) 74 - 99 mg/dL Assessment/Plan Principal Problem: Hematuria Active Problems: Hyponatremia Chronic indwelling Cyr catheter Constipation PLAN: Pt is slowly improving, med list and labs reviewed, for now c/w current Rx, follow closely, appreciate input of urology. Gricelda Perea MD Vashti Massey 69 y.o. male Subjective Patient seen and examined this afternoon. Cyr catheter with yellow urine, no clots seen. Per nursing, was irrigated overnight with no clots and has not required manual irrigation throughout the day today. With no other complaints. Objective PHYSICAL EXAM: Physical Exam Vitals reviewed. Constitutional: General: He is awake. Appearance: Normal appearance. Cardiovascular: Rate and Rhythm: Normal rate and regular rhythm. Pulses: Normal pulses. Heart sounds: Normal heart sounds. Pulmonary: Effort: Pulmonary effort is normal. Breath sounds: Normal breath sounds and air entry. Abdominal: General: Abdomen is flat. There is no distension. Palpations: Abdomen is soft. Tenderness: There is no abdominal tenderness. There is no right CVA tenderness or left CVA tenderness. Genitourinary: Comments: Cyr catheter with yellow urine, no clots. Musculoskeletal: General: Normal range of motion. Cervical back: Normal range of motion. Skin: General: Skin is warm and dry. Neurological: General: No focal deficit present. Mental Status: He is alert and oriented to person, place, and time. Psychiatric: Behavior: Behavior is cooperative. Vital signs in last 24 hours: Vitals: 10/04/24 1200 BP: 133/70 Pulse: 83 Resp: 16 Temp: 36.9 C (98.4 F) SpO2: 97% Intake/Output this shift: Intake/Output Summary (Last 24 hours) at 10/04/2024 1532 Last data filed at 10/04/2024 0900 Gross per 24 hour Intake -- Output 1890 ml Net -1890 ml Allergies: No Known Allergies Medications: Scheduled medications bisacodyl, 10 mg, oral, Daily gadoterate meglumine, 17 mL, intravenous, Once in imaging insulin lispro, 0-10 Units, subcutaneous, Before meals & nightly nicotine, 1 patch, transdermal, Daily Followed by [START ON 11/13/2024] nicotine, 1 patch, transdermal, Daily Followed by [START ON 11/27/2024] nicotine, 1 patch, transdermal, Daily pantoprazole, 40 mg, oral, Daily before breakfast polyethylene glycol, 17 g, oral, Daily sennosides, 2 tablet, oral, Daily sodium phosphates, 1 enema, rectal, Once tamsulosin, 0.4 mg, oral, Daily Continuous medications glycine, 3,000 mL PRN medications PRN medications: acetaminophen, dextrose, dextrose, glucagon, glucagon, melatonin Labs: Results for orders placed or performed during the hospital encounter of 10/02/24 (from the past 24 hours) POCT GLUCOSE Result Value Ref Range POCT Glucose 156 (H) 74 - 99 mg/dL Hemoglobin and hematocrit, blood Result Value Ref Range Hemoglobin 10.6 (L) 13.5 - 17.5 g/dL Hematocrit 32.2 (L) 41.0 - 52.0 % POCT GLUCOSE Result Value Ref Range POCT Glucose 199 (H) 74 - 99 mg/dL CBC Result Value Ref Range WBC 5.2 4.4 - 11.3 x10*3/uL nRBC 0.0 0.0 - 0.0 /100 WBCs RBC 3.93 (L) 4.50 - 5.90 x10*6/uL Hemoglobin 10.5 (L) 13.5 - 17.5 g/dL Hematocrit 32.9 (L) 41.0 - 52.0 % MCV 84 80 - 100 fL MCH 26.7 26.0 - 34.0 pg MCHC 31.9 (L) 32.0 - 36.0 g/dL RDW 16.2 (H) 11.5 - 14.5 % Platelets 270 150 - 450 x10*3/uL Magnesium Result Value Ref Range Magnesium 1.81 1.60 - 2.40 mg/dL Phosphorus Result Value Ref Range Phosphorus 4.3 2.5 - 4.9 mg/dL Basic Metabolic Panel Result Value Ref Range Glucose 169 (H) 74 - 99 mg/dL Sodium 136 136 - 145 mmol/L Potassium 3.8 3.5 - 5.3 mmol/L Chloride 100 98 - 107 mmol/L Bicarbonate 27 21 - 32 mmol/L Anion Gap 13 10 - 20 mmol/L Urea Nitrogen 18 6 - 23 mg/dL Creatinine 0.55 0.50 - 1.30 mg/dL eGFR >90 >60 mL/min/1.73m*2 Calcium 9.4 8.6 - 10.3 mg/dL POCT GLUCOSE Result Value Ref Range POCT Glucose 175 (H) 74 - 99 mg/dL POCT GLUCOSE Result Value Ref Range POCT Glucose 171 (H) 74 - 99 mg/dL Imaging: US right upper quadrant Result Date: 10/04/2024 Interpreted By: Silvio Barksdale, STUDY: US RIGHT UPPER QUADRANT; 10/04/2024 8:45 am INDICATION: Signs/Symptoms:Distended gallbladder per CT scan. COMPARISON: None. ACCESSION NUMBER(S): [id number] ORDERING CLINICIAN: YAMILETH GILMAN TECHNIQUE: Multiple images of the right upper quadrant were obtained. FINDINGS: LIVER: The liver measures 16.1 cm . No focal lesions identified. GALLBLADDER: The gallbladder is distended. No significant wall thickening is identified. There are echogenic mural nodules circumferentially measuring up to 27 mm. Possible vascularity is demonstrated in the dominant nodule. Sonographic Scales's sign is negative. BILE DUCTS: No evidence of intra or extrahepatic biliary dilatation is identified; the common bile duct measures 0.4 cm. PANCREAS: Obscured by bowel gas. RIGHT KIDNEY: The right kidney measures 10.7 cm in length. The renal cortical echogenicity and thickness are within normal limit. No hydronephrosis or renal calculi are seen. 18 mm cyst is noted. No right upper quadrant free fluid identified. Distended gallbladder. No additional findings to indicate acute cholecystitis otherwise. No wall thickening, pericholecystic fluid, or sonographic Scales sign is identified. Circumferential mural nodularity involving the gallbladder which could reflect areas of inspissated sludge, although masses are not entirely excluded. Suggest MR abdomen with and without contrast for further evaluation. MACRO: None Signed by: Silvio Barksdale 10/04/2024 10:50 AM Dictation workstation: [id number] ECG 12 Lead Result Date: 10/02/2024 Sinus bradycardia Moderate voltage criteria for LVH, may be normal variant No previous ECGs available Reconfirmed by Luis Noel ([id number]) on 10/02/2024 3:37:[address] abdomen pelvis wo IV contrast Result Date: 10/02/2024 Interpreted By: Jermaine Beckford, STUDY: CT ABDOMEN PELVIS WO IV CONTRAST; 10/02/2024 8:17 am INDICATION: Signs/Symptoms:hematuria with clots COMPARISON: None ACCESSION NUMBER(S): [id number] ORDERING CLINICIAN: HONG GRANT TECHNIQUE: Spiral axial unenhanced images were obtained from the upper abdomen to the symphysis pubis. Oral contrast was not administered. All CT examinations are performed with one or more of the following dose reduction techniques: Automated Exposure Control, adjustment of mA and/or kV according to patient size, or use of iterative reconstruction techniques. FINDINGS: Lung bases: The lung bases are clear. Liver: Normal in size without focal lesions. Gallbladder: Distended gallbladder, measuring up to 5.6 cm in transverse dimension, with possible gallstones and sludge. Spleen: Normal in size without focal lesions. Pancreas: Unremarkable. Adrenal glands: No focal lesions. The kidneys are normal in size and position. Complex cystic lesion measuring 9.4 cm is noted in the upper pole of the left kidney containing partially calcified septations. There also a couple of smaller cysts in the left kidney measuring up to 2 cm. There are no renal calculi or hydronephrosis. No abnormal calcifications are seen within the course of the ureters or within the bladder. The bladder is decompressed by a Cyr catheter, with apparent wall thickening. The prostate gland is enlarged, measuring 6.5 cm, projecting in the bladder floor. Copious amount of fecal material is noted throughout the colon, suggestive of constipation, without bowel obstruction. The appendix is seen and appears normal. There is no free air or free fluid in the abdomen and pelvis. Atherosclerotic calcifications involve the aorta, without focal aneurysm. There is disc disease involving the lower lumbar spine, especially the L5-S1 level, with minimal anterolisthesis of the L5 over the S1 vertebra. 1. Large complex cystic lesion involving the upper pole of the left kidney, most likely septated/partially calcified cysts. In the setting of hematuria this finding can be further evaluated with nonemergent MRI. 2. Suboptimally evaluated decompressed urinary bladder. In the setting of hematuria further evaluation can be obtained with cystoscopy. 3. Distended gallbladder containing gallstones and possible sludge; this can be further evaluated with ultrasound if clinically indicated. Signed by: Jermaine Beckford 10/02/2024 10:27 AM Dictation workstation: [id number] Plan #Gross hematuria - Can manually irrigate Q4 and PRN as needed to maintain patency of cyr - OK resume anticoagulation tomorrow 10/05 - CT A/P completed - results as above - H&H stable #Urinary retention - Chronic cyr catheter - Recommend cystoscopy as outpatient to evaluate hematuria. Plan of care discussed with Dr. Tillman and urology will sign off. Please call with any concerns. ALYSON Levine I spent 15 minutes in the professional and overall care of this patient. Vashti Massey is a 69 y.o. male on day 1 of admission presenting with Hematuria. Subjective No cp/SOB Objective Current Facility-Administered Medications: acetaminophen (Tylenol) tablet 650 mg, 650 mg, oral, q6h PRN, ALYSON Rivera, 650 mg at 10/03/24 0851 bisacodyl (Dulcolax) EC tablet 10 mg, 10 mg, oral, Daily, Hong Tello, WILDLAND FIRE FIGHTER-WARRANTY COORDINATOR, 10 mg at 10/03/24 0851 dextrose 50 % injection 12.5 g, 12.5 g, intravenous, q15 min PRN, Hong Tello, WILDLAND FIRE FIGHTER-WARRANTY COORDINATOR dextrose 50 % injection 25 g, 25 g, intravenous, q15 min PRN, Hong Tello, WILDLAND FIRE FIGHTER-WARRANTY COORDINATOR glucagon (Glucagen) injection 1 mg, 1 mg, intramuscular, q15 min PRN, Hong Tello, WILDLAND FIRE FIGHTER-WARRANTY COORDINATOR glucagon (Glucagen) injection 1 mg, 1 mg, intramuscular, q15 min PRN, Hong Tello, WILDLAND FIRE FIGHTER-WARRANTY COORDINATOR glycine 1.5 % irrigation solution 3,000 mL, 3,000 mL, irrigation, Continuous, Yamileth Gilman PA-C, 3,000 mL at 10/02/24 1748 insulin lispro injection 0-10 Units, 0-10 Units, subcutaneous, Before meals & nightly, Hong Tello, WILDLAND FIRE FIGHTER-WARRANTY COORDINATOR, 2 Units at 10/03/24 1322 melatonin tablet 3 mg, 3 mg, oral, Nightly PRN, Hong Tello, WILDLAND FIRE FIGHTER-WARRANTY COORDINATOR, 3 mg at 10/02/24 2126 nicotine (Nicoderm CQ) 21 mg/24 hr patch 1 patch, 1 patch, transdermal, Daily, 1 patch at 10/03/24 0856 FOLLOWED BY [START ON 11/13/2024] nicotine (Nicoderm CQ) 14 mg/24 hr patch 1 patch, 1 patch, transdermal, Daily FOLLOWED BY [START ON 11/27/2024] nicotine (Nicoderm CQ) 7 mg/24 hr patch 1 patch, 1 patch, transdermal, Daily, Hong Tello, WILDLAND FIRE FIGHTER-WARRANTY COORDINATOR pantoprazole (ProtoNix) EC tablet 40 mg, 40 mg, oral, Daily before breakfast, Hong Tello, WILDLAND FIRE FIGHTER-WARRANTY COORDINATOR, 40 mg at 10/03/24 0614 polyethylene glycol (Glycolax, Miralax) packet 17 g, 17 g, oral, Daily, Hong Tello, WILDLAND FIRE FIGHTER-WARRANTY COORDINATOR, 17 g at 10/03/24 0852 sennosides (Senokot) tablet 17.2 mg, 2 tablet, oral, Daily, Hong Tello, WILDLAND FIRE FIGHTER-WARRANTY COORDINATOR, 17.2 mg at 10/03/24 0852 tamsulosin (Flomax) 24 hr capsule 0.4 mg, 0.4 mg, oral, Daily, Hong Grant NANCY-WARRANTY COORDINATOR, 0.4 mg at 10/03/24 0852 Physical Exam HENT: Head: Normocephalic. Eyes: Conjunctiva/sclera: Conjunctivae normal. Cardiovascular: Rate and Rhythm: Regular rhythm. Pulmonary: Breath sounds: Normal breath sounds. Abdominal: General: Bowel sounds are normal. Palpations: Abdomen is soft. Musculoskeletal: General: Normal range of motion. Skin: General: Skin is warm and dry. Neurological: General: No focal deficit present. Mental Status: He is alert. Psychiatric: Behavior: Behavior normal. Last Recorded Vitals Blood pressure 128/68, pulse 80, temperature 36.2 C (97.2 F), temperature source Temporal, resp. rate 18, height 1.778 m (5' 10 ), weight 88.1 kg (194 lb 3.6 oz), SpO2 94%. Intake/Output last 3 Shifts: I/O last 3 completed shifts: In: 720 (8.2 mL/kg) [P.O.:720] Out: 5700 (64.7 mL/kg) [Urine:5700 (1.8 mL/kg/hr)] Weight: 88.1 kg Labs: Results for orders placed or performed during the hospital encounter of 10/02/24 (from the past 24 hours) Urinalysis with Reflex Culture and Microscopic Result Value Ref Range Color, Urine Colorless (N) Light-Yellow, Yellow, Dark-Yellow Appearance, Urine Clear Clear Specific [place], Urine 1.011 1.005 - 1.035 pH, Urine 6.5 5.0, 5.5, 6.0, 6.5, 7.0, 7.5, 8.0 Protein, Urine NEGATIVE NEGATIVE, 10 (TRACE), 20 (TRACE) mg/dL Glucose, Urine Normal Normal mg/dL Blood, Urine OVER (3+) (A) NEGATIVE Ketones, Urine NEGATIVE NEGATIVE mg/dL Bilirubin, Urine NEGATIVE NEGATIVE Urobilinogen, Urine Normal Normal mg/dL Nitrite, Urine NEGATIVE NEGATIVE Leukocyte Esterase, Urine NEGATIVE NEGATIVE Extra Urine Alba Tube Result Value Ref Range Extra Tube Hold for add-ons. Urinalysis Microscopic Result Value Ref Range WBC, Urine 1-5 1-5, NONE /HPF RBC, Urine 3-5 NONE, 1-2, 3-5 /HPF POCT GLUCOSE Result Value Ref Range POCT Glucose 179 (H) 74 - 99 mg/dL POCT GLUCOSE Result Value Ref Range POCT Glucose 192 (H) 74 - 99 mg/dL CBC Result Value Ref Range WBC 3.9 (L) 4.4 - 11.3 x10*3/uL nRBC 0.0 0.0 - 0.0 /100 WBCs RBC 3.90 (L) 4.50 - 5.90 x10*6/uL Hemoglobin 10.6 (L) 13.5 - 17.5 g/dL Hematocrit 32.6 (L) 41.0 - 52.0 % MCV 84 80 - 100 fL MCH 27.2 26.0 - 34.0 pg MCHC 32.5 32.0 - 36.0 g/dL RDW 16.3 (H) 11.5 - 14.5 % Platelets 249 150 - 450 x10*3/uL Comprehensive Metabolic Panel Result Value Ref Range Glucose 169 (H) 74 - 99 mg/dL Sodium 134 (L) 136 - 145 mmol/L Potassium 4.1 3.5 - 5.3 mmol/L Chloride 99 98 - 107 mmol/L Bicarbonate 27 21 - 32 mmol/L Anion Gap 12 10 - 20 mmol/L Urea Nitrogen 19 6 - 23 mg/dL Creatinine 0.56 0.50 - 1.30 mg/dL eGFR >90 >60 mL/min/1.73m*2 Calcium 9.3 8.6 - 10.3 mg/dL Albumin 3.9 3.4 - 5.0 g/dL Alkaline Phosphatase 57 33 - 136 U/L Total Protein 6.2 (L) 6.4 - 8.2 g/dL AST 8 (L) 9 - 39 U/L Bilirubin, Total 0.5 0.0 - 1.2 mg/dL ALT 11 10 - 52 U/L Magnesium Result Value Ref Range Magnesium 1.79 1.60 - 2.40 mg/dL Phosphorus Result Value Ref Range Phosphorus 4.3 2.5 - 4.9 mg/dL POCT GLUCOSE Result Value Ref Range POCT Glucose 183 (H) 74 - 99 mg/dL POCT GLUCOSE Result Value Ref Range POCT Glucose 171 (H) 74 - 99 mg/dL Assessment/Plan Principal Problem: Hematuria Active Problems: Hyponatremia Chronic indwelling Cyr catheter Constipation PLAN: Pt is slowly improving, c/w CBI, urine is clearing, monitor H&H and sodium level, appreciate input of urology, med list and labs reviewed, for now continue with the current Rx, follow closely. Gricelda Perea MD documented in this encounter [facility] Work Phone: 10-05-2024 Plan of care note Medical house staff was asked to assist with the patient's discharge from the hospital. I have been uninvolved in this patient's care up to this point. The attending physician has given the order for the patient to be discharged from the hospital. The attending physician has left the hospital today and has asked for my assistance with the patient's discharge. Medications continued as per ordered. Spoke with the patient's daughter and updated her on the patient's condition and need for follow-up with GI for possible nodules on US of gallbladder and urology for cystoscopy outpatient. I answered her questions and she voiced understanding. The patient is being provided discharge orders in their discharge packet as instructed by the attending. [facility] Work Phone: 10-05-2024 Miscellaneous Notes Medical house staff was asked to assist with the patient's discharge from the hospital. I have been uninvolved in this patient's care up to this point. The attending physician has given the order for the patient to be discharged from the hospital. The attending physician has left the hospital today and has asked for my assistance with the patient's discharge. Medications continued as per ordered. Spoke with the patient's daughter and updated her on the patient's condition and need for follow-up with GI for possible nodules on US of gallbladder and urology for cystoscopy outpatient. I answered her questions and she voiced understanding. The patient is being provided discharge orders in their discharge packet as instructed by the attending. PATIENT: VASHTI MASSEY : 1955 ADMIT DATE: 10/02/2024 5:12 AM DISCH DATE: RESPONDING PROVIDER #: [id number] PROVIDER RESPONSE TEXT: Bleeding/Gross Hematuria due to or enhanced by Brilinta, Aspirin use CDI QUERY TEXT: Clarification Instruction: Based on your assessment of the patient and the clinical information, please provide the requested documentation by clicking on the appropriate radio button and enter any additional information if prompted. Question: Please further clarify if a relationship exists between hematuria and Brilinta, Aspirin use When answering this query, please exercise your independent professional judgment. The fact that a question is being asked, does not imply that any particular answer is desired or expected. The patient's clinical indicators include: Clinical Information: 69 yr old male presenting as transfer from OSH due to gross hematuria, clots in presence of BPH w/urinary retention, chronic indwelling cyr catheter. Clinical findings: Hgb: 10.8, 10.6, 10.6. 10.5, 11.0 from 10/02-10/05. HP by IM 531 AM states Hematuria , Chronic indwelling Cyr catheter , plan to hold anticoagulation such as aspirin/brilinta until cleared with urology . Treatment: Lab monitoring of H/H, PT/INR. Brilinta, Aspirin held. CT Abd/Pelvis. US RUQ. MRI Abd. Urology consult. Risk factors: Elderly male w/hx of Anemia, previous Stroke on Brilinta, Aspirin. Options provided: -- Bleeding/Gross Hematuria due to or enhanced by Brilinta, Aspirin use -- Bleeding/Gross Hematuria not due to or enhanced by Brilinta, Aspirin use -- Other - I will add my own diagnosis -- Refer to Clinical Documentation Reviewer Query created by: Soraya Deng on 10/05/2024 10:06 AM Electronically signed by: GRICELDA PEREA MD 10/05/2024 10:44 AM Problem: Skin Goal: Prevent/manage excess moisture Outcome: Progressing Goal: Prevent/minimize sheer/friction injuries Outcome: Progressing Flowsheets (Taken 10/05/2024 0509) Prevent/minimize sheer/friction injuries: Use pull sheet HOB 30 degrees or less Turn/reposition every 2 hours/use positioning/transfer devices Goal: Promote/optimize nutrition Outcome: Progressing Goal: Promote skin healing Outcome: Progressing Problem: Fall/Injury Goal: Be free from injury by end of the shift Outcome: Progressing Goal: Verbalize understanding of personal risk factors for fall in the hospital Outcome: Progressing Problem: Pain Goal: Takes deep breaths with improved pain control throughout the shift Outcome: Progressing Goal: Turns in bed with improved pain control throughout the shift Outcome: Progressing Goal: Walks with improved pain control throughout the shift Outcome: Progressing Goal: Performs ADL's with improved pain control throughout shift Outcome: Progressing Problem: Obstructive: Kidney Stones, Hydronephrosis, BPH Goal: Achieves normovolemia Outcome: Progressing Goal: Relieve obstruction Outcome: Progressing The patient's goals for the shift include sleep The clinical goals for the shift include Pt will remain free from hematuria Problem: Obstructive: Kidney Stones, Hydronephrosis, BPH Goal: Relieve obstruction Outcome: Progressing Problem: Skin Goal: Participates in plan/prevention/treatment measures 10/04/20241800 by Tori Norwood RN Outcome: Met Flowsheets (Taken 10/04/20241800) Participates in plan/prevention/treatment measures: Elevate heels Problem: Fall/Injury Goal: Not fall by end of shift Outcome: Met The patient's goals for the shift include sleep The clinical goals for the shift include remain free of falls and injury Problem: Skin Goal: Participates in plan/prevention/treatment measures Outcome: Progressing Goal: Prevent/manage excess moisture Outcome: Progressing Goal: Prevent/minimize sheer/friction injuries Outcome: Progressing Goal: Promote/optimize nutrition Outcome: Progressing Goal: Promote skin healing Outcome: Progressing Problem: Fall/Injury Goal: Not fall by end of shift Outcome: Progressing Goal: Be free from injury by end of the shift Outcome: Progressing Goal: Verbalize understanding of personal risk factors for fall in the hospital Outcome: Progressing Problem: Pain Goal: Takes deep breaths with improved pain control throughout the shift Outcome: Progressing Goal: Turns in bed with improved pain control throughout the shift Outcome: Progressing Goal: Walks with improved pain control throughout the shift Outcome: Progressing Goal: Performs ADL's with improved pain control throughout shift Outcome: Progressing The patient's goals for the shift include sleep The clinical goals for the shift include remain free of falls and injury Problem: Skin Goal: Participates in plan/prevention/treatment measures Outcome: Progressing Goal: Prevent/manage excess moisture Outcome: Progressing Goal: Prevent/minimize sheer/friction injuries Outcome: Progressing Goal: Promote/optimize nutrition Outcome: Progressing Goal: Promote skin healing Outcome: Progressing Problem: Fall/Injury Goal: Not fall by end of shift Outcome: Progressing Goal: Be free from injury by end of the shift Outcome: Progressing Goal: Verbalize understanding of personal risk factors for fall in the hospital Outcome: Progressing Problem: Pain Goal: Takes deep breaths with improved pain control throughout the shift Outcome: Progressing Goal: Turns in bed with improved pain control throughout the shift Outcome: Progressing Goal: Walks with improved pain control throughout the shift Outcome: Progressing Goal: Performs ADL's with improved pain control throughout shift Outcome: Progressing documented in this encounter [facility] Work Phone: 10-05-2024 Hospital Discharge instructions ALYSON Jaime - 10/05/2024 10:55 AM EST Please follow-up with your primary care physician for referral to gastrointestinal physician Luis F Singh MD (did your EGD in 03/2024) in your area for further work-up on your gallbladder as your ultrasound of your gallbladder showed distended gallbladder, no acute cholecystitis, and no scales's sign. However, there were nodules seen that recommends further evaluation. You were unable to tolerate the MR abdomen. documented in this encounter [facility] Work Phone: 10-05-2024 Note Formatting of this n ote might be different from the original. PATIENT: VASHTI MASSEY : 1955 ADMIT DATE: 10/02/2024 5:12 AM DISCH DATE: RESPONDING PROVIDER #: [id number] PROVIDER RESPONSE TEXT: Bleeding/Gross Hematuria due to or enhanced by Brilinta, Aspirin use CDI QUERY TEXT: Clarification Instruction: Based on your assessment of the patient and the clinical information, please provide the requested documentation by clicking on the appropriate radio button and enter any additional information if prompted. Question: Please further clarify if a relationship exists between hematuria and Brilinta, Aspirin use When answering this query, please exercise your independent professional judgment. The fact that a question is being asked, does not imply that any particular answer is desired or expected. The patient's clinical indicators include: Clinical Information: 69 yr old male presenting as transfer from OSH due to gross hematuria, clots in presence of BPH w/urinary retention, chronic indwelling cyr catheter. Clinical findings: Hgb: 10.8, 10.6, 10.6. 10.5, 11.0 from 10/02-10/05. HP by IM 531 AM states Hematuria , Chronic indwelling Cyr catheter , plan to hold anticoagulation such as aspirin/brilinta until cleared with urology . Treatment: Lab monitoring of H/H, PT/INR. Brilinta, Aspirin held. CT Abd/Pelvis. US RUQ. MRI Abd. Urology consult. Risk factors: Elderly male w/hx of Anemia, previous Stroke on Brilinta, Aspirin. Options provided: -- Bleeding/Gross Hematuria due to or enhanced by Brilinta, Aspirin use -- Bleeding/Gross Hematuria not due to or enhanced by Brilinta, Aspirin use -- Other - I will add my own diagnosis -- Refer to Clinical Documentation Reviewer Query created by: Soraya Deng on 10/05/2024 10:06 AM Electronically signed by: GRICELDA PEREA MD 10/05/2024 10:44 AM [facility] Work Phone: 10-05-2024 Plan of care note Problem: Skin Goal: Prevent/manage excess moisture Outcome: Progressing Goal: Prevent/minimize sheer/friction injuries Outcome: Progressing Flowsheets (Taken 10/05/2024 4288) Prevent/minimize sheer/friction injuries: Use pull sheet HOB 30 degrees or less Turn/reposition every 2 hours/use positioning/transfer devices Goal: Promote/optimize nutrition Outcome: Progressing Goal: Promote skin healing Outcome: Progressing Problem: Fall/Injury Goal: Be free from injury by end of the shift Outcome: Progressing Goal: Verbalize understanding of personal risk factors for fall in the hospital Outcome: Progressing Problem: Pain Goal: Takes deep breaths with improved pain control throughout the shift Outcome: Progressing Goal: Turns in bed with improved pain control throughout the shift Outcome: Progressing Goal: Walks with improved pain control throughout the shift Outcome: Progressing Goal: Performs ADL's with improved pain control throughout shift Outcome: Progressing Problem: Obstructive: Kidney Stones, Hydronephrosis, BPH Goal: Achieves normovolemia Outcome: Progressing Goal: Relieve obstruction Outcome: Progressing The patient's goals for the shift include sleep The clinical goals for the shift include Pt will remain free from hematuria [facility] 10-04-2024 Nurse Note 1530 Pt c/o constipation, attempted to have BM on bedpan all shift. Attempted fleets enema with difficulty due to large amount hard stool in rectum. 1800 Pt has had two XL soft brown BMs 1830 Cyr has been clear yellow all shift, now dark nae; Hand irrigated with clear return, no clots noted. [facility] 10-04-2024 Nurse Note 1530 Pt c/o constipation, attempted to have BM on bedpan all shift. Attempted fleets enema with difficulty due to large amount hard stool in rectum. 1800 Pt has had two XL soft brown BMs 1830 Cyr has been clear yellow all shift, now dark nae; Hand irrigated with clear return, no clots noted. 1420 Pt off unit for MRCP documented in this encounter [facility] Work Phone: 10-04-2024 Plan of care note Problem: Obstructive: Kidney Stones, Hydronephrosis, BPH Goal: Relieve obstruction Outcome: Progressing Problem: Skin Goal: Participates in plan/prevention/treatment measures 10/04/2024 180 by Tori Norwood RN Outcome: Met Flowsheets (Taken 10/04/20241800) Participates in plan/prevention/treatment measures: Elevate heels Problem: Fall/Injury Goal: Not fall by end of shift Outcome: Met [facility] Work Phone: 10-04-2024 Nurse Note 1420 Pt off unit for MRCP [facility] Work Phone: 10-04-2024 Plan of care note The patient's goals for the shift include sleep The clinical goals for the shift include remain free of falls and injury Problem: Skin Goal: Participates in plan/prevention/treatment measures Outcome: Progressing Goal: Prevent/manage excess moisture Outcome: Progressing Goal: Prevent/minimize sheer/friction injuries Outcome: Progressing Goal: Promote/optimize nutrition Outcome: Progressing Goal: Promote skin healing Outcome: Progressing Problem: Fall/Injury Goal: Not fall by end of shift Outcome: Progressing Goal: Be free from injury by end of the shift Outcome: Progressing Goal: Verbalize understanding of personal risk factors for fall in the hospital Outcome: Progressing Problem: Pain Goal: Takes deep breaths with improved pain control throughout the shift Outcome: Progressing Goal: Turns in bed with improved pain control throughout the shift Outcome: Progressing Goal: Walks with improved pain control throughout the shift Outcome: Progressing Goal: Performs ADL's with improved pain control throughout shift Outcome: Progressing [facility] 10-03-2024 Consult note Formatting of th is note is different from the original. Reason For Consult Gross hematuria History Of Present Illness Vashti Massey is a 69 y.o. male presenting with gross hematuria with suprapubic discomfort, initially presenting to outside hospital on 09/29/2024 - Bleeding recurred within 6 hours of returning to extended care facility - Suprapubic pain improved since CBI restart at [facility] - Multiple large clots removed via manual irrigation - Reports constipation, requesting medication - Denies fever, chills, headache, dizziness, chest pain, palpitations, SOB, cough, abdominal pain, N/V, diarrhea. 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 Surgical History He has a past surgical history that includes Rotator cuff repair (Right); Total knee arthroplasty (Left); Cataract extraction; Tonsillectomy; Esophagogastroduodenoscopy; and Colonoscopy. Social History He reports that he has been smoking cigarettes. He started smoking about 65 years ago. He has a 33 pack-year smoking history. He has been exposed to tobacco smoke. He has never used smokeless tobacco. He reports that he does not currently use alcohol. He reports that he does not use drugs. Family History Family History Problem Relation Name Age of Onset Cancer Mother Brain cancer Father Cancer Sister Stroke Maternal Grandmother Allergies Patient has no known allergies. Review of Systems Per HPI Physical Exam - Alert, oriented x3 - Cardiopulmonary: Regular rhythm, normal heart sounds, clear breath sounds - Abdomen: Soft, non-tender, normal bowel sounds - : Three-way Cyr catheter with CBI running. Manual irrigation performed with return of light pink urine. One small clot was removed. - Extremities: 2+ bilateral lower extremity edema - Neuro: Left-sided hemiplegia Last Recorded Vitals Blood pressure 106/54, pulse 65, temperature 36.4 C (97.5 F), temperature source Temporal, resp. rate 16, height 1.778 m (5' 10 ), weight 88.1 kg (194 lb 3.6 oz), SpO2 99%. Relevant Results Labs: - Hgb 10.8 g/dL, Hct 35.2% - WBC 4.3, Plt 250 - Na 135, K 4.0, Cr 0.46 - INR 1.2, PT 13.1 Assessment/Plan Mr. Massey presents with recurrent gross hematuria requiring continuous bladder irrigation. Bleeding is likely in the setting of his antiplatelet agent which is being managed with cardiology. This has been held since 09/29/2024. His hematuria continues to improve during this time. He has chronic indwelling Cyr catheter for retention. 1. Gross Hematuria -Clamp CBI, transition to q4h manual irrigation by nursing. - Hold anticoagulation - Monitor H&H - Transfuse if Hgb < 7.0 - CT abdomen/pelvis ordered -He will require a cystoscopy to complete evaluation for the gross hematuria however this can be done as an outpatient 2. Chronic Cyr Catheter - Maintain catheter - Monitor I&Os - Continue tamsulosin and the plan is to wean him off the catheter. If the patient would like to continue having the catheter then there is no utility for tamsulosin 3. Constipation - Continue bisacodyl, polyethylene glycol, sennosides - Monitor bowel movements 4. Code Status: DNR/DNI I spent 45 minutes in the professional and overall care of this patient. Wes Vaughn MD [facility] Work Phone: 10-03-2024 Consult note Formatting of th is note is different from the original. Reason For Consult Gross hematuria History Of Present Illness Vashti Massey is a 69 y.o. male presenting with gross hematuria with suprapubic discomfort, initially presenting to outside hospital on 09/29/2024 - Bleeding recurred within 6 hours of returning to extended care facility - Suprapubic pain improved since CBI restart at [facility] - Multiple large clots removed via manual irrigation - Reports constipation, requesting medication - Denies fever, chills, headache, dizziness, chest pain, palpitations, SOB, cough, abdominal pain, N/V, diarrhea. 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 Surgical History He has a past surgical history that includes Rotator cuff repair (Right); Total knee arthroplasty (Left); Cataract extraction; Tonsillectomy; Esophagogastroduodenoscopy; and Colonoscopy. Social History He reports that he has been smoking cigarettes. He started smoking about 65 years ago. He has a 33 pack-year smoking history. He has been exposed to tobacco smoke. He has never used smokeless tobacco. He reports that he does not currently use alcohol. He reports that he does not use drugs. Family History Family History Problem Relation Name Age of Onset Cancer Mother Brain cancer Father Cancer Sister Stroke Maternal Grandmother Allergies Patient has no known allergies. Review of Systems Per HPI Physical Exam - Alert, oriented x3 - Cardiopulmonary: Regular rhythm, normal heart sounds, clear breath sounds - Abdomen: Soft, non-tender, normal bowel sounds - : Three-way Cyr catheter with CBI running. Manual irrigation performed with return of light pink urine. One small clot was removed. - Extremities: 2+ bilateral lower extremity edema - Neuro: Left-sided hemiplegia Last Recorded Vitals Blood pressure 106/54, pulse 65, temperature 36.4 C (97.5 F), temperature source Temporal, resp. rate 16, height 1.778 m (5' 10 ), weight 88.1 kg (194 lb 3.6 oz), SpO2 99%. Relevant Results Labs: - Hgb 10.8 g/dL, Hct 35.2% - WBC 4.3, Plt 250 - Na 135, K 4.0, Cr 0.46 - INR 1.2, PT 13.1 Assessment/Plan Mr. Massey presents with recurrent gross hematuria requiring continuous bladder irrigation. Bleeding is likely in the setting of his antiplatelet agent which is being managed with cardiology. This has been held since 09/29/2024. His hematuria continues to improve during this time. He has chronic indwelling Cyr catheter for retention. 1. Gross Hematuria -Clamp CBI, transition to q4h manual irrigation by nursing. - Hold anticoagulation - Monitor H&H - Transfuse if Hgb < 7.0 - CT abdomen/pelvis ordered -He will require a cystoscopy to complete evaluation for the gross hematuria however this can be done as an outpatient 2. Chronic Cyr Catheter - Maintain catheter - Monitor I&Os - Continue tamsulosin and the plan is to wean him off the catheter. If the patient would like to continue having the catheter then there is no utility for tamsulosin 3. Constipation - Continue bisacodyl, polyethylene glycol, sennosides - Monitor bowel movements 4. Code Status: DNR/DNI I spent 45 minutes in the professional and overall care of this patient. Wes Vaughn MD documented in this encounter [facility] Work Phone: 10-03-2024 Plan of care note The patient's goals for the shift include sleep The clinical goals for the shift include remain free of falls and injury Problem: Skin Goal: Participates in plan/prevention/treatment measures Outcome: Progressing Goal: Prevent/manage excess moisture Outcome: Progressing Goal: Prevent/minimize sheer/friction injuries Outcome: Progressing Goal: Promote/optimize nutrition Outcome: Progressing Goal: Promote skin healing Outcome: Progressing Problem: Fall/Injury Goal: Not fall by end of shift Outcome: Progressing Goal: Be free from injury by end of the shift Outcome: Progressing Goal: Verbalize understanding of personal risk factors for fall in the hospital Outcome: Progressing Problem: Pain Goal: Takes deep breaths with improved pain control throughout the shift Outcome: Progressing Goal: Turns in bed with improved pain control throughout the shift Outcome: Progressing Goal: Walks with improved pain control throughout the shift Outcome: Progressing Goal: Performs ADL's with improved pain control throughout shift Outcome: Progressing [facility] Work Phone: 10-02-2024 History and physical note History Of Present Illness Vashti Massey is a 69 y.o. M from [facility] with PMH of HTN, HLD, T2DM, CVA, BPH, chronic indwelling Cyr catheter due to urinary retention presented to ER in [place] due to hematuria. Patient was apparently in the ER few days ago with a similar complaint and was sent back to [facility] from where he came back to ER again.. Patient apparently was on Brilinta for his previous stroke which was recently DC'd due to hematuria. There was no obvious fever or chills. Patient was transferred to [facility] as there was no urologist available in [place]. He was admitted on 3 S. daily for further care. 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 Surgical History He has a past surgical history that includes Rotator cuff repair (Right); Total knee arthroplasty (Left); Cataract extraction; Tonsillectomy; Esophagogastroduodenoscopy; and Colonoscopy. Social History He reports that he has been smoking cigarettes. He started smoking about 65 years ago. He has a 33 pack-year smoking history. He has been exposed to tobacco smoke. He has never used smokeless tobacco. He reports that he does not currently use alcohol. He reports that he does not use drugs. Family History Family History Problem Relation Name Age of Onset Cancer Mother Brain cancer Father Cancer Sister Stroke Maternal Grandmother Allergies Patient has no known allergies. Current medications: Current Facility-Administered Medications: acetaminophen (Tylenol) tablet 650 mg, 650 mg, oral, q6h PRN, Hong Tello, [employer]ORDIN[employer], 650 mg at 10/02/24 0916 bisacodyl (Dulcolax) EC tablet 10 mg, 10 mg, oral, Daily, Hong Tello, [employer] COORDINATOR, 10 mg at 10/02/24 0918 dextrose 50 % injection 12.5 g, 12.5 g, intravenous, q15 min PRN, Hong Tello, [employer] COORDINATOR dextrose 50 % injection 25 g, 25 g, intravenous, q15 min PRN, Hong Tello, [employer] COORDINATOR glucagon (Glucagen) injection 1 mg, 1 mg, intramuscular, q15 min PRN, Hong Tello, [employer] COORDINATOR glucagon (Glucagen) injection 1 mg, 1 mg, intramuscular, q15 min PRN, Hong Tello, [employer] COORDINATOR insulin lispro injection 0-10 Units, 0-10 Units, subcutaneous, Before meals & nightly, Hong Tello, [employer] COORDINATOR, 2 Units at 10/02/24 0927 melatonin tablet 3 mg, 3 mg, oral, Nightly PRN, Hong Tello, [employer]ORDINATOR nicotine (Nicoderm CQ) 21 mg/24 hr patch 1 patch, 1 patch, transdermal, Daily, 1 patch at 10/02/24 0918 FOLLOWED BY [START ON 11/13/2024] nicotine (Nicoderm CQ) 14 mg/24 hr patch 1 patch, 1 patch, transdermal, Daily FOLLOWED BY [START ON 11/27/2024] nicotine (Nicoderm CQ) 7 mg/24 hr patch 1 patch, 1 patch, transdermal, Daily, Hong Tello, [employer] COORDINATOR pantoprazole (ProtoNix) EC tablet 40 mg, 40 mg, oral, Daily before breakfast, Hong Tello, [employer] COORDINATOR, 40 mg at 10/02/24 0641 polyethylene glycol (Glycolax, Miralax) packet 17 g, 17 g, oral, Daily, Hong Tello, [employer] COORDINATOR, 17 g at 10/02/24 0918 sennosides (Senokot) tablet 17.2 mg, 2 tablet, oral, Daily, Hong Tello, [employer] COORDINATOR, 17.2 mg at 10/02/24 0918 tamsulosin (Flomax) 24 hr capsule 0.4 mg, 0.4 mg, oral, Daily, Hong Modi, [employer] COORDINATOR, 0.4 mg at 10/02/24 0918 Review of Systems 10 organ ROS is pertinent for history mentioned above, otherwise negative Physical Exam HENT: Head: Normocephalic. Eyes: Conjunctiva/sclera: Conjunctivae normal. Cardiovascular: Rate and Rhythm: Regular rhythm. Pulmonary: Breath sounds: Normal breath sounds. Abdominal: General: Bowel sounds are normal. Palpations: Abdomen is soft. Musculoskeletal: General: Normal range of motion. Skin: General: Skin is warm and dry. Neurological: General: No focal deficit present. Mental Status: He is alert. Psychiatric: Behavior: Behavior normal. Last Recorded Vitals Blood pressure 147/70, pulse 56, temperature 36 C (96.8 F), resp. rate 19, height 1.778 m (5' 10 ), weight 85.5 kg (188 lb 7.9 oz), SpO2 100%. Relevant Results Results for orders placed or performed during the hospital encounter of 10/02/24 (from the past 24 hours) CBC Result Value Ref Range WBC 4.3 (L) 4.4 - 11.3 x10*3/uL nRBC 0.0 0.0 - 0.0 /100 WBCs RBC 4.00 (L) 4.50 - 5.90 x10*6/uL Hemoglobin 10.8 (L) 13.5 - 17.5 g/dL Hematocrit 35.2 (L) 41.0 - 52.0 % MCV 88 80 - 100 fL MCH 27.0 26.0 - 34.0 pg MCHC 30.7 (L) 32.0 - 36.0 g/dL RDW 16.2 (H) 11.5 - 14.5 % Platelets 250 150 - 450 x10*3/uL Comprehensive Metabolic Panel Result Value Ref Range Glucose 181 (H) 74 - 99 mg/dL Sodium 135 (L) 136 - 145 mmol/L Potassium 4.0 3.5 - 5.3 mmol/L Chloride 100 98 - 107 mmol/L Bicarbonate 27 21 - 32 mmol/L Anion Gap 12 10 - 20 mmol/L Urea Nitrogen 20 6 - 23 mg/dL Creatinine 0.46 (L) 0.50 - 1.30 mg/dL eGFR >90 >60 mL/min/1.73m*2 Calcium 9.2 8.6 - 10.3 mg/dL Albumin 4.0 3.4 - 5.0 g/dL Alkaline Phosphatase 60 33 - 136 U/L Total Protein 6.4 6.4 - 8.2 g/dL AST 8 (L) 9 - 39 U/L Bilirubin, Total 0.5 0.0 - 1.2 mg/dL ALT 11 10 - 52 U/L Magnesium Result Value Ref Range Magnesium 1.69 1.60 - 2.40 mg/dL Phosphorus Result Value Ref Range Phosphorus 3.1 2.5 - 4.9 mg/dL Coagulation Screen Result Value Ref Range Protime 13.1 (H) 9.8 - 12.8 seconds INR 1.2 (H) 0.9 - 1.1 aPTT 32 27 - 38 seconds POCT GLUCOSE Result Value Ref Range POCT Glucose 160 (H) 74 - 99 mg/dL ECG 12 Lead Result Value Ref Range Ventricular Rate 55 BPM Atrial Rate 55 BPM MI Interval 168 ms QRS Duration 106 ms QT Interval 434 ms QTC Calculation(Bazett) 415 ms P [place] 13 degrees R [place] -25 degrees T [place] -13 degrees QRS Count 9 beats Q Onset 225 ms P Onset 141 ms P Offset 203 ms T Offset 442 ms QTC Fredericia 421 ms POCT GLUCOSE Result Value Ref Range POCT Glucose 173 (H) 74 - 99 mg/dL Radiology CT ABDOMEN PELVIS WO IV CONTRAST; 10/02/2024 8:17 am INDICATION: Signs/Symptoms:hematuria with clots COMPARISON: None ACCESSION NUMBER(S): [id number] ORDERING CLINICIAN: HNOG GRANT TECHNIQUE: Spiral axial unenhanced images were obtained from the upper abdomen to the symphysis pubis. Oral contrast was not administered. All CT examinations are performed with one or more of the following dose reduction techniques: Automated Exposure Control, adjustment of mA and/or kV according to patient size, or use of iterative reconstruction techniques. FINDINGS: Lung bases: The lung bases are clear. Liver: Normal in size without focal lesions. Gallbladder: Distended gallbladder, measuring up to 5.6 cm in transverse dimension, with possible gallstones and sludge. Spleen: Normal in size without focal lesions. Pancreas: Unremarkable. Adrenal glands: No focal lesions. The kidneys are normal in size and position. Complex cystic lesion measuring 9.4 cm is noted in the upper pole of the left kidney containing partially calcified septations. There also a couple of smaller cysts in the left kidney measuring up to 2 cm. There are no renal calculi or hydronephrosis. No abnormal calcifications are seen within the course of the ureters or within the bladder. The bladder is decompressed by a Cyr catheter, with apparent wall thickening. The prostate gland is enlarged, measuring 6.5 cm, projecting in the bladder floor. Copious amount of fecal material is noted throughout the colon, suggestive of constipation, without bowel obstruction. The appendix is seen and appears normal. There is no free air or free fluid in the abdomen and pelvis. Atherosclerotic calcifications involve the aorta, without focal aneurysm. There is disc disease involving the lower lumbar spine, especially the L5-S1 level, with minimal anterolisthesis of the L5 over the S1 vertebra. IMPRESSION: 1. Large complex cystic lesion involving the upper pole of the left kidney, most likely septated/partially calcified cysts. In the setting of hematuria this finding can be further evaluated with nonemergent MRI. 2. Suboptimally evaluated decompressed urinary bladder. In the setting of hematuria further evaluation can be obtained with cystoscopy. 3. Distended gallbladder containing gallstones and possible sludge; this can be further evaluated with ultrasound if clinically indicated. Assessment/Plan Assessment & Plan Hematuria Chronic indwelling Cyr catheter Hyponatremia Constipation PLAN: Patient was admitted on 3 S. daily, was started on CBI, urology consult, monitor, H&H, transfuse if needed, may go for cystoscopy, monitor sodium level, med list and labs reviewed, for now continue with current Rx, DVT prophylaxis, follow closely Gricelda Perea MD [facility] Work Phone: 10-02-2024 History and physical note History Of Present Illness Vashti Massey is a 69 y.o. M from [facility] with PMH of HTN, HLD, T2DM, CVA, BPH, chronic indwelling Cyr catheter due to urinary retention presented to ER in [place] due to hematuria. Patient was apparently in the ER few days ago with a similar complaint and was sent back to [facility] from where he came back to ER again.. Patient apparently was on Brilinta for his previous stroke which was recently DC'd due to hematuria. There was no obvious fever or chills. Patient was transferred to [facility] as there was no urologist available in [place]. He was admitted on 3 S. daily for further care. 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 Surgical History He has a past surgical history that includes Rotator cuff repair (Right); Total knee arthroplasty (Left); Cataract extraction; Tonsillectomy; Esophagogastroduodenoscopy; and Colonoscopy. Social History He reports that he has been smoking cigarettes. He started smoking about 65 years ago. He has a 33 pack-year smoking history. He has been exposed to tobacco smoke. He has never used smokeless tobacco. He reports that he does not currently use alcohol. He reports that he does not use drugs. Family History Family History Problem Relation Name Age of Onset Cancer Mother Brain cancer Father Cancer Sister Stroke Maternal Grandmother Allergies Patient has no known allergies. Current medications: Current Facility-Administered Medications: acetaminophen (Tylenol) tablet 650 mg, 650 mg, oral, q6h PRN, Hong Tello, [employer]Y COORDINATOR, 650 mg at 10/02/24 0916 bisacodyl (Dulcolax) EC tablet 10 mg, 10 mg, oral, Daily, Hong Tello, [employer]Y COORDINATOR, 10 mg at 10/02/24 0918 dextrose 50 % injection 12.5 g, 12.5 g, intravenous, q15 min PRN, Hong Tello, [employer]Y COORDINATOR dextrose 50 % injection 25 g, 25 g, intravenous, q15 min PRN, Hong Tello, [employer]ARRANTY COORDINATOR glucagon (Glucagen) injection 1 mg, 1 mg, intramuscular, q15 min PRN, Hong Tello, [employer]ARRANTY COORDINATOR glucagon (Glucagen) injection 1 mg, 1 mg, intramuscular, q15 min PRN, Hong Tello, [employer]ARRANTY COORDINATOR insulin lispro injection 0-10 Units, 0-10 Units, subcutaneous, Before meals & nightly, Hong Tello, [employer]Y COORDINATOR, 2 Units at 10/02/24 09 melatonin tablet 3 mg, 3 mg, oral, Nightly PRN, Hong Tello, [employer] COORDINATOR nicotine (Nicoderm CQ) 21 mg/24 hr patch 1 patch, 1 patch, transdermal, Daily, 1 patch at 10/02/24 0918 FOLLOWED BY [START ON 11/13/2024] nicotine (Nicoderm CQ) 14 mg/24 hr patch 1 patch, 1 patch, transdermal, Daily FOLLOWED BY [START ON 11/27/2024] nicotine (Nicoderm CQ) 7 mg/24 hr patch 1 patch, 1 patch, transdermal, Daily, Hong Tello, [employer] FIGH[employer]ARRANTY COORDINATOR pantoprazole (ProtoNix) EC tablet 40 mg, 40 mg, oral, Daily before breakfast, Hong Tello, [employer]ARRANTY COORDINATOR, 40 mg at 10/02/24 0641 polyethylene glycol (Glycolax, Miralax) packet 17 g, 17 g, oral, Daily, Hong Tello, [employer]ARRANTY COORDINATOR, 17 g at 10/02/24917 sennosides (Senokot) tablet 17.2 mg, 2 tablet, oral, Daily, Hong Tello, [employer]ARRANTY COORDINATOR, 17.2 mg at 10/02/24917 tamsulosin (Flomax) 24 hr capsule 0.4 mg, 0.4 mg, oral, Daily, Hong Tello, [employer]ARRANTY COORDINATOR, 0.4 mg at 10/02/24 0918 Review of Systems 10 organ ROS is pertinent for history mentioned above, otherwise negative Physical Exam HENT: Head: Normocephalic. Eyes: Conjunctiva/sclera: Conjunctivae normal. Cardiovascular: Rate and Rhythm: Regular rhythm. Pulmonary: Breath sounds: Normal breath sounds. Abdominal: General: Bowel sounds are normal. Palpations: Abdomen is soft. Musculoskeletal: General: Normal range of motion. Skin: General: Skin is warm and dry. Neurological: General: No focal deficit present. Mental Status: He is alert. Psychiatric: Behavior: Behavior normal. Last Recorded Vitals Blood pressure 147/70, pulse 56, temperature 36 C (96.8 F), resp. rate 19, height 1.778 m (5' 10 ), weight 85.5 kg (188 lb 7.9 oz), SpO2 100%. Relevant Results Results for orders placed or performed during the hospital encounter of 10/02/24 (from the past 24 hours) CBC Result Value Ref Range WBC 4.3 (L) 4.4 - 11.3 x10*3/uL nRBC 0.0 0.0 - 0.0 /100 WBCs RBC 4.00 (L) 4.50 - 5.90 x10*6/uL Hemoglobin 10.8 (L) 13.5 - 17.5 g/dL Hematocrit 35.2 (L) 41.0 - 52.0 % MCV 88 80 - 100 fL MCH 27.0 26.0 - 34.0 pg MCHC 30.7 (L) 32.0 - 36.0 g/dL RDW 16.2 (H) 11.5 - 14.5 % Platelets 250 150 - 450 x10*3/uL Comprehensive Metabolic Panel Result Value Ref Range Glucose 181 (H) 74 - 99 mg/dL Sodium 135 (L) 136 - 145 mmol/L Potassium 4.0 3.5 - 5.3 mmol/L Chloride 100 98 - 107 mmol/L Bicarbonate 27 21 - 32 mmol/L Anion Gap 12 10 - 20 mmol/L Urea Nitrogen 20 6 - 23 mg/dL Creatinine 0.46 (L) 0.50 - 1.30 mg/dL eGFR >90 >60 mL/min/1.73m*2 Calcium 9.2 8.6 - 10.3 mg/dL Albumin 4.0 3.4 - 5.0 g/dL Alkaline Phosphatase 60 33 - 136 U/L Total Protein 6.4 6.4 - 8.2 g/dL AST 8 (L) 9 - 39 U/L Bilirubin, Total 0.5 0.0 - 1.2 mg/dL ALT 11 10 - 52 U/L Magnesium Result Value Ref Range Magnesium 1.69 1.60 - 2.40 mg/dL Phosphorus Result Value Ref Range Phosphorus 3.1 2.5 - 4.9 mg/dL Coagulation Screen Result Value Ref Range Protime 13.1 (H) 9.8 - 12.8 seconds INR 1.2 (H) 0.9 - 1.1 aPTT 32 27 - 38 seconds POCT GLUCOSE Result Value Ref Range POCT Glucose 160 (H) 74 - 99 mg/dL ECG 12 Lead Result Value Ref Range Ventricular Rate 55 BPM Atrial Rate 55 BPM MI Interval 168 ms QRS Duration 106 ms QT Interval 434 ms QTC Calculation(Bazett) 415 ms P [place] 13 degrees R [place] -25 degrees T [place] -13 degrees QRS Count 9 beats Q Onset 225 ms P Onset 141 ms P Offset 203 ms T Offset 442 ms QTC Fredericia 421 ms POCT GLUCOSE Result Value Ref Range POCT Glucose 173 (H) 74 - 99 mg/dL Radiology CT ABDOMEN PELVIS WO IV CONTRAST; 10/02/2024 8:17 am INDICATION: Signs/Symptoms:hematuria with clots COMPARISON: None ACCESSION NUMBER(S): [id number] ORDERING CLINICIAN: HONG GRANT TECHNIQUE: Spiral axial unenhanced images were obtained from the upper abdomen to the symphysis pubis. Oral contrast was not administered. All CT examinations are performed with one or more of the following dose reduction techniques: Automated Exposure Control, adjustment of mA and/or kV according to patient size, or use of iterative reconstruction techniques. FINDINGS: Lung bases: The lung bases are clear. Liver: Normal in size without focal lesions. Gallbladder: Distended gallbladder, measuring up to 5.6 cm in transverse dimension, with possible gallstones and sludge. Spleen: Normal in size without focal lesions. Pancreas: Unremarkable. Adrenal glands: No focal lesions. The kidneys are normal in size and position. Complex cystic lesion measuring 9.4 cm is noted in the upper pole of the left kidney containing partially calcified septations. There also a couple of smaller cysts in the left kidney measuring up to 2 cm. There are no renal calculi or hydronephrosis. No abnormal calcifications are seen within the course of the ureters or within the bladder. The bladder is decompressed by a Cyr catheter, with apparent wall thickening. The prostate gland is enlarged, measuring 6.5 cm, projecting in the bladder floor. Copious amount of fecal material is noted throughout the colon, suggestive of constipation, without bowel obstruction. The appendix is seen and appears normal. There is no free air or free fluid in the abdomen and pelvis. Atherosclerotic calcifications involve the aorta, without focal aneurysm. There is disc disease involving the lower lumbar spine, especially the L5-S1 level, with minimal anterolisthesis of the L5 over the S1 vertebra. IMPRESSION: 1. Large complex cystic lesion involving the upper pole of the left kidney, most likely septated/partially calcified cysts. In the setting of hematuria this finding can be further evaluated with nonemergent MRI. 2. Suboptimally evaluated decompressed urinary bladder. In the setting of hematuria further evaluation can be obtained with cystoscopy. 3. Distended gallbladder containing gallstones and possible sludge; this can be further evaluated with ultrasound if clinically indicated. Assessment/Plan Assessment & Plan Hematuria Chronic indwelling Cyr catheter Hyponatremia Constipation PLAN: Patient was admitted on 3 S. daily, was started on CBI, urology consult, monitor, H&H, transfuse if needed, may go for cystoscopy, monitor sodium level, med list and labs reviewed, for now continue with current Rx, DVT prophylaxis, follow closely Gricelda Perea MD History Of Present Illness Vashti Massey is a 69 y.o. 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 Outside ER documentation: Patient initially presented to outside hospital from an extended care facility for concern of gross hematuria. Per outside documentation, patient was brought to the same ER on 09/29 and at that time continuous bladder irrigation was continued inevitably. According to staff at the extended care facility, patient started bleeding again within 6 hours of returning to the facility and did not have any improvement in the gross hematuria. Patient then started to complain of suprapubic discomfort and was subsequently transferred to the hospital for evaluation and perspective bladder scope. The patient was previously on Brilinta for his stroke, but this was discontinued by the doctor at the facility due to hematuria. Last approximate dose of Brilinta was likely on 09/29. Patient was complaining of a suprapubic pressure which was constant. Currently, the patient states that his suprapubic pain has improved since CBI was restarted at the [facility]. He mentions that multiple large clots were removed via manual irrigation. He states that he first noticed the clots in his Cyr catheter on 09/29 and has had his catheter replaced multiple times this past week. Most recently changed on . Patient has a Cyr catheter for chronic urinary retention. His only other complaint at this time is feeling constipated and he is requesting medication to help him have a bowel movement. He denies any recent fever, chills, headache, dizziness, chest pain / palpitations, shortness of breath, cough, abdominal pain, nausea, vomiting, diarrhea. ED Course at [place]: Vital signs: Temp. 98.2F, HR 70 bpm, RR 23, BP 132/63, SPO2 97% on room air CMP: Glucose 167, Na+ 139, K+ 4.0, BUN 23, creatinine 0.72, EGFR >60 CBC w/diff: WBC 5.0, H&H 10.8/33.4 respectively, platelet 264 Troponin I : 6.2, 5.8 (WNL per OSH range) EKG: Sinus rhythm, ventricular rate 61 bpm, MI 162 ms, QRS 108 ms, QTc [address] elevation or depression noted. Disposition: Patient was transferred to [facility] for concern of gross hematuria requiring CBI and outside hospital not having anesthesia available should patient require urologic intervention. Past Medical History Past Medical History: Diagnosis Date Anemia Anxiety BPH (benign prostatic hyperplasia) Bursitis Chronic indwelling Cyr catheter Depression Hemiplegia affecting left nondominant side (Multi) History of CVA with residual deficit Left-sided deficits Hx of chronic kidney disease Hyperlipidemia Hypertension Insulin dependent type 2 diabetes mellitus (Multi) Osteoarthritis Surgical History He has a past surgical history that includes Rotator cuff repair (Right); Total knee arthroplasty (Left); Cataract extraction; Tonsillectomy; Esophagogastroduodenoscopy; and Colonoscopy. Social History He reports that he has been smoking cigarettes. He started smoking about 65 years ago. He has a 33 pack-year smoking history. He has been exposed to tobacco smoke. He has never used smokeless tobacco. He reports that he does not currently use alcohol. He reports that he does not use drugs. Family History Family History Problem Relation Name Age of Onset Cancer Mother Brain cancer Father Cancer Sister Stroke Maternal Grandmother Allergies Patient has no known allergies. Review of Systems Constitutional: Negative for chills, fatigue and fever. HENT: Negative for hearing loss, sore throat and trouble swallowing. Eyes: Negative for visual disturbance. Respiratory: Negative for cough, chest tightness and shortness of breath. Cardiovascular: Positive for leg swelling. Negative for chest pain and palpitations. Gastrointestinal: Positive for constipation. Negative for abdominal distention, abdominal pain, diarrhea, nausea and vomiting. Genitourinary: Positive for hematuria. Negative for dysuria, flank pain, frequency and urgency. Musculoskeletal: Negative for back pain and gait problem. Skin: Negative for color change, rash and wound. Neurological: Negative for dizziness, syncope, weakness and light-headedness. Psychiatric/Behavioral: Negative for agitation, confusion and dysphoric mood. The patient is not nervous/anxious. Physical Exam Vitals reviewed. Constitutional: General: He is not in acute distress. HENT: Head: Normocephalic and atraumatic. Right Ear: External ear normal. Left Ear: External ear normal. Nose: Nose normal. Mouth/Throat: Mouth: Mucous membranes are moist. Pharynx: Oropharynx is clear. Eyes: General: Lids are normal. Vision grossly intact. Pupils: Pupils are equal, round, and reactive to light. Cardiovascular: Rate and Rhythm: Normal rate and regular rhythm. Pulses: Radial pulses are 2+ on the right side and 2+ on the left side. Dorsalis pedis pulses are 1+ on the right side and 1+ on the left side. Posterior tibial pulses are 1+ on the right side and 1+ on the left side. Heart sounds: Normal heart sounds. No murmur heard. Pulmonary: Effort: Pulmonary effort is normal. Breath sounds: Normal breath sounds. No wheezing, rhonchi or rales. Abdominal: General: Bowel sounds are normal. There is no distension. Palpations: Abdomen is soft. Tenderness: There is no abdominal tenderness. There is no right CVA tenderness or left CVA tenderness. Genitourinary: Comments: Three-way Cyr catheter with CBI running Musculoskeletal: Right lower le+ Edema present. Left lower le+ Edema present. Neurological: Mental Status: He is alert and oriented to person, place, and time. Mental status is at baseline. Sensory: Sensation is intact. Motor: Weakness present. Comments: Left-sided hemiplegia Psychiatric: Attention and Perception: Attention and perception normal. Mood and Affect: Mood and affect normal. Speech: Speech normal. Behavior: Behavior normal. Behavior is cooperative. Thought Content: Thought content normal. Last Recorded Vitals Blood pressure 158/70, pulse 63, temperature 36.6 C (97.9 F), temperature source Temporal, resp. rate 18, height 1.778 m (5' 10 ), weight 85.5 kg (188 lb 7.9 oz), SpO2 95%. Visit Vitals BP 158/70 (BP Location: Right arm, Patient Position: Lying) Pulse 63 Temp 36.6 C (97.9 F) (Temporal) Resp 18 Ht 1.778 m (5' 10 ) Wt 85.5 kg (188 lb 7.9 oz) SpO2 95% BMI 27.05 kg/m Smoking Status Every Day BSA 2.05 m Weight: 85.5 kg (188 lb 7.9 oz) Relevant Results Results for orders placed or performed during the hospital encounter of 10/02/24 (from the past 24 hours) CBC Result Value Ref Range WBC 4.3 (L) 4.4 - 11.3 x10*3/uL nRBC 0.0 0.0 - 0.0 /100 WBCs RBC 4.00 (L) 4.50 - 5.90 x10*6/uL Hemoglobin 10.8 (L) 13.5 - 17.5 g/dL Hematocrit 35.2 (L) 41.0 - 52.0 % MCV 88 80 - 100 fL MCH 27.0 26.0 - 34.0 pg MCHC 30.7 (L) 32.0 - 36.0 g/dL RDW 16.2 (H) 11.5 - 14.5 % Platelets 250 150 - 450 x10*3/uL Comprehensive Metabolic Panel Result Value Ref Range Glucose 181 (H) 74 - 99 mg/dL Sodium 135 (L) 136 - 145 mmol/L Potassium 4.0 3.5 - 5.3 mmol/L Chloride 100 98 - 107 mmol/L Bicarbonate 27 21 - 32 mmol/L Anion Gap 12 10 - 20 mmol/L Urea Nitrogen 20 6 - 23 mg/dL Creatinine 0.46 (L) 0.50 - 1.30 mg/dL eGFR >90 >60 mL/min/1.73m*2 Calcium 9.2 8.6 - 10.3 mg/dL Albumin 4.0 3.4 - 5.0 g/dL Alkaline Phosphatase 60 33 - 136 U/L Total Protein 6.4 6.4 - 8.2 g/dL AST 8 (L) 9 - 39 U/L Bilirubin, Total 0.5 0.0 - 1.2 mg/dL ALT 11 10 - 52 U/L Magnesium Result Value Ref Range Magnesium 1.69 1.60 - 2.40 mg/dL Phosphorus Result Value Ref Range Phosphorus 3.1 2.5 - 4.9 mg/dL Coagulation Screen Result Value Ref Range Protime 13.1 (H) 9.8 - 12.8 seconds INR 1.2 (H) 0.9 - 1.1 aPTT 32 27 - 38 seconds POCT GLUCOSE Result Value Ref Range POCT Glucose 160 (H) 74 - 99 mg/dL No results found. Home Medications Prior to Admission medications Not on File Medications Scheduled medications bisacodyl, 10 mg, oral, Daily insulin lispro, 0-10 Units, subcutaneous, Before meals & nightly nicotine, 1 patch, transdermal, Daily Followed by [START ON 11/13/2024] nicotine, 1 patch, transdermal, Daily Followed by [START ON 11/27/2024] nicotine, 1 patch, transdermal, Daily pantoprazole, 40 mg, oral, Daily before breakfast polyethylene glycol, 17 g, oral, Daily sennosides, 2 tablet, oral, Daily tamsulosin, 0.4 mg, oral, Daily Continuous medications PRN medications PRN medications: acetaminophen, dextrose, dextrose, glucagon, glucagon, melatonin Assessment/Plan Assessment & Plan Hematuria Chronic indwelling Cyr catheter Hyponatremia Constipation Plan: Code Status: DNR and No Intubation. [place] DNR form completed and attached to EMR - Attempted to call daughter at the number provided by the patient, automated message Consult: Urology ATB: None indicated at this time Meds: Sliding scale insulin, hypoglycemia protocol. Daily nicotine patch. Dulcolax 10 mg p.o. daily, MiraLAX 17 g p.o. daily, Senokot 17.2 mg p.o. daily. Pantoprazole 40 mg p.o. daily. Tamsulosin 0.4 mg capsule p.o. daily. Tylenol 650 mg p.o. every 6 hours as needed for pain 1-6/headaches, melatonin 3 milligrams p.o. daily as needed for insomnia, Monitor for hypo/hyperglycemia signs and symptoms Once med rec has been completed, plan to hold anticoagulation such as aspirin/brilinta until cleared with urology Diet: Cardiac, Carb Consistent Telemetry monitoring Vital signs with BP, HR, & RR Q 4 hours. Pulse ox Q 4 hours. Admission height and weight. Daily weight. Continuous bladder irrigation until evaluated by urology Maintain Cyr catheter Labs ordered: CBC, BMP, Mg, Phos. UA w/ reflex culture Test ordered: CT abdomen/pelvis Monitor / trend labs while inpatient. Monitor and replace electrolytes as needed. Transfuse with PRBC for hemoglobin<7.0 Strict I&Os Aspiration precautions. Fall precautions Out of bed with assistance PT/OT eval and treat as indicated Encourage & educate on smoking cessation Call physician for temperature < 36.5 or >38.0 degrees celsius. Call physician for pulse <50 or >120. Call physician for respiratory rate <10 or >22. Call physician for systolic blood pressure <90 or >170. Call physician for diastolic blood pressure < 50 or >100. Call physician for pulse ox <92%. VTE prophylaxis: No pharmacological prophylaxis ordered at this time due to presentation with hematuria BLE SCDs. Monitor for s/s of bleeding Medication reconciliation to be completed when nursing/pharmacy are able to verify patient's accurate home medications. See additional orders for further plan of care. Any further evaluation and management per attending and consulting physicians. This note has been transcribed using [employer] voice recognition system and there is a possibility of unintentional typing misprints. Any information found to be copied from previous providers is done in the best interest of the patient to provide accurate, quality, and continuity of care. I spent 60 minutes in the professional and overall care of this patient. [facility] documented in this encounter [facility] Work Phone: 10-02-2024 History and physical note History Of Present Illness Vashti Massey is a 69 y.o. 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 Outside ER documentation: Patient initially presented to outside hospital from an extended care facility for concern of gross hematuria. Per outside documentation, patient was brought to the same ER on 09/29 and at that time continuous bladder irrigation was continued inevitably. According to staff at the extended care facility, patient started bleeding again within 6 hours of returning to the facility and did not have any improvement in the gross hematuria. Patient then started to complain of suprapubic discomfort and was subsequently transferred to the hospital for evaluation and perspective bladder scope. The patient was previously on Brilinta for his stroke, but this was discontinued by the doctor at the facility due to hematuria. Last approximate dose of Brilinta was likely on 09/29. Patient was complaining of a suprapubic pressure which was constant. Currently, the patient states that his suprapubic pain has improved since CBI was restarted at the [facility]. He mentions that multiple large clots were removed via manual irrigation. He states that he first noticed the clots in his Cyr catheter on 09/29 and has had his catheter replaced multiple times this past week. Most recently changed on . Patient has a Cyr catheter for chronic urinary retention. His only other complaint at this time is feeling constipated and he is requesting medication to help him have a bowel movement. He denies any recent fever, chills, headache, dizziness, chest pain / palpitations, shortness of breath, cough, abdominal pain, nausea, vomiting, diarrhea. ED Course at [place]: Vital signs: Temp. 98.2F, HR 70 bpm, RR 23, BP 132/63, SPO2 97% on room air CMP: Glucose 167, Na+ 139, K+ 4.0, BUN 23, creatinine 0.72, EGFR >60 CBC w/diff: WBC 5.0, H&H 10.8/33.4 respectively, platelet 264 Troponin I : 6.2, 5.8 (WNL per OSH range) EKG: Sinus rhythm, ventricular rate 61 bpm, MI 162 ms, QRS 108 ms, QTc [address] elevation or depression noted. Disposition: Patient was transferred to [facility] for concern of gross hematuria requiring CBI and outside hospital not having anesthesia available should patient require urologic intervention. Past Medical History Past Medical History: Diagnosis Date Anemia Anxiety BPH (benign prostatic hyperplasia) Bursitis Chronic indwelling Cyr catheter Depression Hemiplegia affecting left nondominant side (Multi) History of CVA with residual deficit Left-sided deficits Hx of chronic kidney disease Hyperlipidemia Hypertension Insulin dependent type 2 diabetes mellitus (Multi) Osteoarthritis Surgical History He has a past surgical history that includes Rotator cuff repair (Right); Total knee arthroplasty (Left); Cataract extraction; Tonsillectomy; Esophagogastroduodenoscopy; and Colonoscopy. Social History He reports that he has been smoking cigarettes. He started smoking about 65 years ago. He has a 33 pack-year smoking history. He has been exposed to tobacco smoke. He has never used smokeless tobacco. He reports that he does not currently use alcohol. He reports that he does not use drugs. Family History Family History Problem Relation Name Age of Onset Cancer Mother Brain cancer Father Cancer Sister Stroke Maternal Grandmother Allergies Patient has no known allergies. Review of Systems Constitutional: Negative for chills, fatigue and fever. HENT: Negative for hearing loss, sore throat and trouble swallowing. Eyes: Negative for visual disturbance. Respiratory: Negative for cough, chest tightness and shortness of breath. Cardiovascular: Positive for leg swelling. Negative for chest pain and palpitations. Gastrointestinal: Positive for constipation. Negative for abdominal distention, abdominal pain, diarrhea, nausea and vomiting. Genitourinary: Positive for hematuria. Negative for dysuria, flank pain, frequency and urgency. Musculoskeletal: Negative for back pain and gait problem. Skin: Negative for color change, rash and wound. Neurological: Negative for dizziness, syncope, weakness and light-headedness. Psychiatric/Behavioral: Negative for agitation, confusion and dysphoric mood. The patient is not nervous/anxious. Physical Exam Vitals reviewed. Constitutional: General: He is not in acute distress. HENT: Head: Normocephalic and atraumatic. Right Ear: External ear normal. Left Ear: External ear normal. Nose: Nose normal. Mouth/Throat: Mouth: Mucous membranes are moist. Pharynx: Oropharynx is clear. Eyes: General: Lids are normal. Vision grossly intact. Pupils: Pupils are equal, round, and reactive to light. Cardiovascular: Rate and Rhythm: Normal rate and regular rhythm. Pulses: Radial pulses are 2+ on the right side and 2+ on the left side. Dorsalis pedis pulses are 1+ on the right side and 1+ on the left side. Posterior tibial pulses are 1+ on the right side and 1+ on the left side. Heart sounds: Normal heart sounds. No murmur heard. Pulmonary: Effort: Pulmonary effort is normal. Breath sounds: Normal breath sounds. No wheezing, rhonchi or rales. Abdominal: General: Bowel sounds are normal. There is no distension. Palpations: Abdomen is soft. Tenderness: There is no abdominal tenderness. There is no right CVA tenderness or left CVA tenderness. Genitourinary: Comments: Three-way Cyr catheter with CBI running Musculoskeletal: Right lower le+ Edema present. Left lower le+ Edema present. Neurological: Mental Status: He is alert and oriented to person, place, and time. Mental status is at baseline. Sensory: Sensation is intact. Motor: Weakness present. Comments: Left-sided hemiplegia Psychiatric: Attention and Perception: Attention and perception normal. Mood and Affect: Mood and affect normal. Speech: Speech normal. Behavior: Behavior normal. Behavior is cooperative. Thought Content: Thought content normal. Last Recorded Vitals Blood pressure 158/70, pulse 63, temperature 36.6 C (97.9 F), temperature source Temporal, resp. rate 18, height 1.778 m (5' 10 ), weight 85.5 kg (188 lb 7.9 oz), SpO2 95%. Visit Vitals BP 158/70 (BP Location: Right arm, Patient Position: Lying) Pulse 63 Temp 36.6 C (97.9 F) (Temporal) Resp 18 Ht 1.778 m (5' 10 ) Wt 85.5 kg (188 lb 7.9 oz) SpO2 95% BMI 27.05 kg/m Smoking Status Every Day BSA 2.05 m Weight: 85.5 kg (188 lb 7.9 oz) Relevant Results Results for orders placed or performed during the hospital encounter of 10/02/24 (from the past 24 hours) CBC Result Value Ref Range WBC 4.3 (L) 4.4 - 11.3 x10*3/uL nRBC 0.0 0.0 - 0.0 /100 WBCs RBC 4.00 (L) 4.50 - 5.90 x10*6/uL Hemoglobin 10.8 (L) 13.5 - 17.5 g/dL Hematocrit 35.2 (L) 41.0 - 52.0 % MCV 88 80 - 100 fL MCH 27.0 26.0 - 34.0 pg MCHC 30.7 (L) 32.0 - 36.0 g/dL RDW 16.2 (H) 11.5 - 14.5 % Platelets 250 150 - 450 x10*3/uL Comprehensive Metabolic Panel Result Value Ref Range Glucose 181 (H) 74 - 99 mg/dL Sodium 135 (L) 136 - 145 mmol/L Potassium 4.0 3.5 - 5.3 mmol/L Chloride 100 98 - 107 mmol/L Bicarbonate 27 21 - 32 mmol/L Anion Gap 12 10 - 20 mmol/L Urea Nitrogen 20 6 - 23 mg/dL Creatinine 0.46 (L) 0.50 - 1.30 mg/dL eGFR >90 >60 mL/min/1.73m*2 Calcium 9.2 8.6 - 10.3 mg/dL Albumin 4.0 3.4 - 5.0 g/dL Alkaline Phosphatase 60 33 - 136 U/L Total Protein 6.4 6.4 - 8.2 g/dL AST 8 (L) 9 - 39 U/L Bilirubin, Total 0.5 0.0 - 1.2 mg/dL ALT 11 10 - 52 U/L Magnesium Result Value Ref Range Magnesium 1.69 1.60 - 2.40 mg/dL Phosphorus Result Value Ref Range Phosphorus 3.1 2.5 - 4.9 mg/dL Coagulation Screen Result Value Ref Range Protime 13.1 (H) 9.8 - 12.8 seconds INR 1.2 (H) 0.9 - 1.1 aPTT 32 27 - 38 seconds POCT GLUCOSE Result Value Ref Range POCT Glucose 160 (H) 74 - 99 mg/dL No results found. Home Medications Prior to Admission medications Not on File Medications Scheduled medications bisacodyl, 10 mg, oral, Daily insulin lispro, 0-10 Units, subcutaneous, Before meals & nightly nicotine, 1 patch, transdermal, Daily Followed by [START ON 11/13/2024] nicotine, 1 patch, transdermal, Daily Followed by [START ON 11/27/2024] nicotine, 1 patch, transdermal, Daily pantoprazole, 40 mg, oral, Daily before breakfast polyethylene glycol, 17 g, oral, Daily sennosides, 2 tablet, oral, Daily tamsulosin, 0.4 mg, oral, Daily Continuous medications PRN medications PRN medications: acetaminophen, dextrose, dextrose, glucagon, glucagon, melatonin Assessment/Plan Assessment & Plan Hematuria Chronic indwelling Cyr catheter Hyponatremia Constipation Plan: Code Status: DNR and No Intubation. [place] DNR form completed and attached to EMR - Attempted to call daughter at the number provided by the patient, automated message Consult: Urology ATB: None indicated at this time Meds: Sliding scale insulin, hypoglycemia protocol. Daily nicotine patch. Dulcolax 10 mg p.o. daily, MiraLAX 17 g p.o. daily, Senokot 17.2 mg p.o. daily. Pantoprazole 40 mg p.o. daily. Tamsulosin 0.4 mg capsule p.o. daily. Tylenol 650 mg p.o. every 6 hours as needed for pain 1-6/headaches, melatonin 3 milligrams p.o. daily as needed for insomnia, Monitor for hypo/hyperglycemia signs and symptoms Once med rec has been completed, plan to hold anticoagulation such as aspirin/brilinta until cleared with urology Diet: Cardiac, Carb Consistent Telemetry monitoring Vital signs with BP, HR, & RR Q 4 hours. Pulse ox Q 4 hours. Admission height and weight. Daily weight. Continuous bladder irrigation until evaluated by urology Maintain Cyr catheter Labs ordered: CBC, BMP, Mg, Phos. UA w/ reflex culture Test ordered: CT abdomen/pelvis Monitor / trend labs while inpatient. Monitor and replace electrolytes as needed. Transfuse with PRBC for hemoglobin<7.0 Strict I&Os Aspiration precautions. Fall precautions Out of bed with assistance PT/OT eval and treat as indicated Encourage & educate on smoking cessation Call physician for temperature < 36.5 or >38.0 degrees celsius. Call physician for pulse <50 or >120. Call physician for respiratory rate <10 or >22. Call physician for systolic blood pressure <90 or >170. Call physician for diastolic blood pressure < 50 or >100. Call physician for pulse ox <92%. VTE prophylaxis: No pharmacological prophylaxis ordered at this time due to presentation with hematuria BLE SCDs. Monitor for s/s of bleeding Medication reconciliation to be completed when nursing/pharmacy are able to verify patient's accurate home medications. See additional orders for further plan of care. Any further evaluation and management per attending and consulting physicians. This note has been transcribed using [employer] voice recognition system and there is a possibility of unintentional typing misprints. Any information found to be copied from previous providers is done in the best interest of the patient to provide accurate, quality, and continuity of care. I spent 60 minutes in the professional and overall care of this patient. ALYSON Rivera [facility] [place] [facility] Work Phone: 10-01-2024 Miscellaneous Notes Contract: [address] Moreno cell and Connected Call documented in this encounter [facility] 10-01-2024 Telephone encounter Note Contract: 195 RE Hematuria [facility] 10-01-2024 Telephone encounter Note Called Dr Josh martin and Connected Call [facility] 10-01-2024 Miscellaneous Notes Contract: 195 Bhumika @Charito called regarding urinary retention & blood in urine @[facility] [id number] Moreno & transferred her to Bhumika @CHARITO documented in this encounter [facility] 10-01-2024 Telephone encounter Note Contract: 195 Bhumika @Charito called regarding urinary retention & blood in urine @[facility] [employer] [facility] 10-01-2024 Telephone encounter Note [id number] I called Dr Moreno & transferred her to Bhumika WARREN [facility] [employer] [facility] 09-09-2024 Note Cardiology Clinic No te Chief Complaint: New Patient HPI: Vashti Massey is a 69 y.o. male who has [...] Radiology: No image results found. Assessment/Plan: Vashti Massey is a 69 y.o. male with Primary [...] with any questions (more content not included)... [facility] 12-30-2023 History of Present illness Narrative Images from the original note were not included. Vashti Massey 1955 [id number] Last encounter with me: Visit date not [...] prior surgery, diabetic Xr today HPI Vashti Massey is a 68 y.o. year old male [...] Medical History: Diagnosis Date Arthritis Cataract Diabetes ([facility]) Diabetes mellitus type 2, controlled ([facility]) Fractures Past Surgical History: Procedure [...] Future PLAN: I examined and treated Vashti Massey at his appointment today. I discussed the [...] of the aforementioned history prepared by the [facility] practice provider, and I personally performed the [...] hip xrays.. Klaus Yeboah MD Adult Reconstruction [facility] [address] [place] [address], [address] W: [phone] F: [phone] documented in this encounter [facility] 12-11-2023 History of Present illness Narrative Reason for visit: Post stroke care, hospital follow-up. HPI: Vashti Massey is a 68 y.o. male right-handed, who [...] Medical History: Diagnosis Date Arthritis Cataract Diabetes ([facility]) Diabetes mellitus type 2, controlled ([facility]) Fractures Past Surgical History Past [...] hyperglycemia, with long-term current use of insulin ([facility]) Cerebrovascular accident (CVA) due to thrombosis ([facility]) Mixed hyperlipidemia Sequelae, post-stroke Gait [...] in 3 months. 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 (ICD-10 - Z79.4) Oct, Hx of cerebral infar ction (ICD-10 - Z86.73) [facility] Other 01-22-2024 Miscellaneous Notes* Telephone Encounter - Alysha Gilbert RN - 11/17/2023 10:06 AM EST From Troy Moeller, This message is in reference to the below patient: Patient Name: VASHTI MASSEY Date of : 1955 This is to [...] Patient Services Outbound Team [facility] [id number] Telephone encounter Note* Telephone Encounter - Alysha Gilbert RN - 11/17/2023 10:06 AM EST From Troy Moeller, This message is in reference to the below patient: Patient Name: VASHTI MASSEY Date of : 1955 This is to [...] Sincerely, Your Patient Services Outbound Team [facility] [employer] SystemEvaluation + Plan note Future Appointments Appointment Date:01/21/2025 03:00:00 PM Scheduled Provider:JAROCHO POST MD Location:[facility] Appointment Type:URO Office Visit [facility] Evaluation note* Diagnosis Cerebrovascular accident (CVA) due to thrombosis of precerebral artery ([facility])- Primary Other cerebrovascular vasospasm and vasoconstriction [facility]* Diagnosis Sequelae, post-stroke- Primary Cerebrovascular accident (CVA) due to thrombosis of precerebral artery ([facility]) Type 2 diabetes mellitus with hyperglycemia, with long-term current use of insulin ([facility]) Transient alteration of awareness Mixed hyperlipidemia Blurred vision Other specified visual disturbances Gait instability Abnormality of gait [facility]* Diagnosis Arthritis of right knee- Primary Right knee pain, unspecified chronicity Right knee pain, unspecified chronicity documented in this encounter [facility] SystemEvaluation note* Diagnosis Onset Date Resolution Status Cerebral atherosclerosis acu te Cigarette nicotine dependence without complication acute Hypercholesterolemia acute Primary hypertension acute Type 2 diabetes mellitus with hyperglycemia acute [facility] Work Phone: Evaluation note* Diagnosis Onset Date Resolution Status Cerebral atherosclerosis acu te Cigarette nicotine dependence without complication acute Hypercholesterolemia acute Primary hypertension acute Primary osteoarthritis of right knee acute Type 2 diabetes mellitus with hyperglycemia acute Cerebral atherosclerosis acu te Cigarette nicotine dependence without complication acute Hypercholesterolemia acute Primary hypertension acute Type 2 diabetes mellitus with hyperglycemia acute [facility] Work Phone: Evaluation note* Diagnosis Onset [...] Type 2 diabetes mellitus with hyperglycemia acute [facility] Work Phone: Evaluation note* Diagnosis Hematuria- Primary Hematuria, unspecified Hematuria Hematuria, unspecified Chronic indwelling Cyr catheter Tobacco use Hyponatremia Hyposmolality and/or hyponatremia Chronic indwelling Cyr catheter Constipation Unspecified constipation documented in this encounter [facility] Work Phone: History general Narrative - Reported* Type Description Date Medical History Cerebral atherosclerosis Medical History Hypercholesterolemia Medical History Primary hypertension Medical History Cigarette nicotine dependence wi thout complication Surgical History Tonsillectomy Surgical History Right Shoulder Surgery Surgical History Left TKA 2009 Surgical History Right Knee Arthroscopy x2 Surgical History 2: cataracts Surgical History ORIF Right Wrist Hospitalization History see surgical history [facility] Other Hospital course Narrative No data available for this section [facility] InstructionsNot on filedocumented in this encounter [facility] filedocumented in this encounter [facility]Not on filedocumented in this encounter [facility] System[facility]ructionsNot on filedocumented in this encounter [facility] System[facility]ructionsNot on filedocumented in this encounter [facility] No data available for this section [facility] Reason for visit NarrativeDiabetic education/XR results [facility] Other Reason for visit Narrative* Auth/Cert Specialty Diagnoses / Procedures Referred By Shanice wood Referred To Contact Diagnoses Hematuria hematuria Gricelda Perea MD [address] [facility] [address] [place] [address] Phone: tel: fax: [phone] [place] [phone] Phone: tel: Referral ID Status Reason Start Date Expiration Date Visits Re quested Visits Authorized [id number] 1 1 [facility] Work Phone: Summary Purpose Family History No Family History [...] Advance Directives No November 26, 2023 12:50pm Documents on File Type Date Recorded Patient Director Of Institutional Giving Expl anation Durable Power of Private Sector Executive 05/21/2024 4:26 PM Date Activated Date Inactivated Comments 06/05/2024 9:55 PM 06/12/2024 1:06 AM Date Activated Date Inactivated Comments 05/27/2024 5:35 PM 06/01/2024 4:39 PM Date Activated Date Inactivated Comments 04/11/2024 7:34 AM 04/21/2024 4:56 PM Date Activated Date Inactivated Comments 04/09/2024 1:49 PM 04/10/2024 5:48 PM Date Activated Date Inactivated Comments 10/28/2023 8:46 AM 10/29/2023 3:57 PM Date Activated Date Inactivated Comments 10/02/2024 6:07 AM Question Answer Comments Plan of Care: Code Status Discussion Completed Decision Maker: Patient Reason for Referral Specialty Diagnoses / Procedures Referred By Contac t Referred To Contact Diagnoses Cerebrovascular accident (CVA) due to thrombosis of precerebral artery (CMS-HCC) Other cerebrovascular vasospasm and vasoconstriction Procedures Event Monitor (In Office) Kong Gallegos APRN-CNP [address] [place] [id number] Referral ID Status Reason Start Date Expiration Date V isits Requested Visits Authorized [id number] Pending Review 10/31/2023 10/30/2024 1 1 Specialty Diagnoses / Procedures Referred By Contac t Referred To Contact Rehabilitation Diagnoses Cerebrovascular accident (CVA) due to thrombosis of precerebral artery (CMS-HCC) Sequelae, post-stroke Gait instability Alexis Rojas MD [address] [place] [address], [address] [place] [phone] Referral ID Status Reason Start Date Expiration Date Visits Requested Visits Authorized [id number] Pending Review Specialty Services Required 12/11/2023 12/10/2024 1 1 Specialty Diagnoses / Procedures Referred By Contac t Referred To Contact Rehabilitation Diagnoses Arthritis of right knee Klaus Yeboah MD [address] [place] [place] [address] Referral ID Status Reason Start Date Expiration Date Visits Requested Visits Authorized [id number] Pending Review Specialty Services Required 12/30/2023 12/29/2024 1 1 Specialty Diagnoses / Procedures Referred By Contac t Referred To Contact Diagnoses Right knee pain, unspecified chronicity Arthritis of right knee Procedures Large Joint Injection/Arthrocentesis - [place] Klaus Yeboah MD [address] [place] [address] [facility] [address] [place] [address] Referral ID Status Reason Start Date Expiration Date V isits Requested Visits Authorized [id number] Pending Review 12/30/2023 12/29/2024 1 1 Chief [...] content) DATE CREATED AUTHOR 05/16/2022 [facility] DATE CREATED AUTHOR AUTHOR'S ORGANIZ ATION 02/05/2024 [facility] EPIC DATE CREATED AUTHOR AUTHOR'S ORGANIZ ATION 06/02/2024 [facility] DATE CREATED AUTHOR AUTHOR'S ORGANIZ ATION 06/12/[address] [facility] DATE CREATED AUTHOR AUTHOR'S ORGANIZ ATION 06/16/2024 [facility] DATE CREATED AUTHOR AUTHOR'S ORGANIZ ATION 09/20/2024 [facility] DATE CREATED AUTHOR AUTHOR'S ORGANIZ ATION 10/05/2024 [facility] DATE CREATED AUTHOR AUTHOR'S ORGANIZ ATION 10/13/2024 [facility] DATE CREATED AUTHOR AUTHOR'S ORGANIZ ATION 10/20/2024 [facility] DATE CREATED AUTHOR AUTHOR'S ORGANIZ ATION 10/26/2024 [facility] Care Teams (unrecognized sec tion and content) [employer] Relationship Specialty Start Date End Date Vinnie Mayorga DO [address] [place] [address] PCP - General Internal Medicine 10/26/23 [employer] Relationship Specialty Start Date End Date Vinnie Mayorga DO [address] [place], [place] [id number] PCP - General Internal Medicine 10/26/23 [employer] Relationship Specialty Start Date End Date Vinnie Mayorga DO [address] [place], [place] [phone] PCP - General Internal Medicine 10/26/23 [employer] Relationship Specialty Start Date End Date Vinnie Mayorga DO [address] [place], [place] [phone] PCP - General Internal Medicine 10/26/23 Team Status: Active Member Role Status Dates Vinnie Mayorga DO Primary Care Provider Active Team Status: Inactive Member Role Status Dates Vinnie Mayorga DO Attending Provider Active Sta rt: November 26, 2023 End: November 26, 2023 Team Status: Inactive Member Role Status Dates Vinnie Mayorga DO Primary Care Provide r, Attending Provider Active Start: January 23, 2024 End: January 23, 2024 Team Status: Inactive Member Role Status Dates Vinnie Mayorga DO Primary Care Provide r, Attending Provider Active Start: March 26, 2024 End: March 26, 2024 Team Status: Inactive Member Role Status Dates Vinnie Mayorga DO Primary Care Provide r, Attending Provider Active Start: March 31, 2024 End: March 31, 2024 [employer] Relationship Specialty Start Date End Date Vinnie Mayorga DO [address] [place] [address] PCP - General Internal Medicine 05/27/24 [employer] Relationship Specialty Start Date End Date Vinnie Mayorga DO [address] [place] [address] PCP - General Internal Medicine 05/27/24 [employer] Relationship Specialty Start Date End Date Vinnie Mayorga MD [address] [place] [id number] PCP - General Internal Medicine 02/04/24 [employer] Relationship Specialty Start Date End Date Vinnie Mayorga MD [address] [place] [id number] PCP - General Internal Medicine 02/04/24 REASON FOR VISIT (unrecogniz ed section and content) Reason Comments Pain New patient right kn ee pain, patient states his knee has been bothersome for some time, increasing recently. States that his balance is being affected. States he has pain getting in and out of the car, going up steps and getting up from a seated position. No prior surgery, diabetic Xr today Reason Onset Date Comments Urinary Retention 10/01/2024 Blood in Urine 10/01/2024 Reason Onset Date Comments Blood in Urine 10/01/2024 Goals (unrecognized section and content) Goals may be documented in a n alternate section Scheduled Active and Recently Administ ered Medications (unrecognized section and content) Medication Order 10/04/2024 10/05/2024 10/06/2024 aspirin EC tablet 81 mg 81 mg, oral, Daily, First dose (after last modification) on Fri10/05/24 at 0900, Do not crush, chew, or split. 1533 (Held by provider - Provider: ALYSON Jaime - Reason: Other - Comment: Gross hematuria)1538 (Unheld by provider - Provider: ALYSON Jaime) 0938 (Given - Provider: Lilliana Porter RN) 0900 (Due) atorvastatin (Lipitor) tablet 40 mg 40 mg, oral, Nightly, First dose on Fri10/04/24 at 2100 2104 (Given - Provider: Richelle Mehta RN) 2213 (Given - Provider: Richelle Mehta RN) 2100 (Due) bisacodyl (Dulcolax) EC tablet 10 mg 10 mg, oral, Daily, First dose on Fri10/02/24 at 0900, Do not give within 1 hour of antacids, milk, or dairy products. Do not crush, chew, or split. 0928 (Given - Provider: Tori Norwood RN) 0938 (Given - Provider: Lilliana Porter RN) 0900 (Due) gabapentin (Neurontin) capsule 100 mg 100 mg, oral, 3 times daily, First dose on Fri10/04/24 at 1600, Capsules may be opened and sprinkled on food (eg, applesauce, orange juice, pudding 1733 (Given - Provider: Tori Norwood RN)2104 (Given - Provider: Richelle Mehta RN) 0937 (Given - Provider: Lilliana Porter, SMOOTH)1603 (Given - Provider: Lilliana Porter RN)2213 (Given - Provider: Richelle Mehta RN) 0900 (Due)1500 (Due)2100 (Due) gadoterate meglumine (Dotarem) 0.5 mmol/mL contrast injection 17 mL 17 mL, intravenous, Once in imaging, Starting on Fri10/04/24 at 1413, For 1 dose, Administer undiluted as rapid I.V. bolus injection insulin glargine (Lantus) injection 15 Units 15 Units, subcutaneous, Nightly, First dose on Fri10/04/24 at 2100 2104 (Given - Provider: Richelle Mehta RN) 221 (Given - Provider: Richelle Mehta RN) 2100 (Due) insulin lispro injection 0-10 Units 0-10 Units, subcutaneous, 4 times daily before meals and nightly, First dose on Fri10/02/24 at 0700, Do not hold when patient is not eating, continue order as scheduled for hyperglycemia management. Insulin Lispro Corrective Scale #2 Hypoglycemia protocol Call LIP unit(s) if Blood Glucose is between 0 - 70 mg/dL 0 unit(s) if Blood glucose is between 71-150 2 unit(s) if Blood glucose is between 151-200 4 unit(s) if Blood glucose is between 201-250 6 unit(s) if Blood glucose is between 251-300 8 unit(s) if Blood glucose is between 301-350 10 unit(s) if Blood glucose is between 351-400 Notify provider unit(s) if Blood Glucose is greater than 400 mg/dL 0932 (Not Given - Provider: Tori Norwood RN - Reason: Patient/family refused)1248 (Not Given - Provider: Tori Norwood RN - Reason: Patient/family refused)1736 (Given - Provider: Tori Norwood RN)2105 (Given - Provider: Richelle Mehta RN) 0920 (Not Given - Provider: Lilliana Porter RN - Reason: Order parameters not met)1223 (Given - Provider: Lilliana Porter RN)1603 (Given - Provider: Lilliana Porter RN)2211 (Given - Provider: Richelle Mehta RN) 0700 (Due)1100 (Due)1600 (Due)2100 (Due) magnesium oxide (Mag-Ox) tablet 400 mg 400 mg, oral, Daily, First dose on Fri10/04/24 at 1600 1733 (Given - Provider: Tori Norwood RN) 0937 (Given - Provider: Lilliana Porter RN) 0900 (Due) metoprolol succinate XL (Toprol-XL) 24 hr tablet 50 mg 50 mg, oral, Daily, First dose on Fri10/04/24 at 1600, Hold for systolic less than 100mmhg or heart rate less than 60 bpm Do not crush or chew. 1733 (Given - Provider: Tori Norwood RN) 0937 (Given - Provider: Lilliana Porter RN) 0900 (Due) nicotine (Nicoderm CQ) 14 mg/24 hr patch 1 patch(Linked Group 1) 1 patch, transdermal, Administer over 24 Hours, Daily, First dose on 11/13/24 at 0900, For 14 days nicotine (Nicoderm CQ) 21 mg/24 hr patch 1 patch(Linked Group 1) 1 patch, transdermal, Administer over 24 Hours, Daily, First dose on 10/02/24 at 0900, For 42 days 0928 (Medication Applied - Provider: Tori Norwood RN)0932 (Medication Removed - Provider: Tori Norwood RN) 0927 (Medication Removed - Provider: Lilliana Porter RN)0939 (Medication Applied - Provider: Lilliana Porter RN) 0859 (Due: Medication Removed - Provider: Lilliana Porter RN)09 (Due) nicotine (Nicoderm CQ) 7 mg/24 hr patch 1 patch(Linked Group 1) 1 patch, transdermal, Administer over 24 Hours, Daily, First dose on 11/27/24 at 0900, For 14 days pantoprazole (ProtoNix) EC tablet 40 mg 40 mg, oral, Daily before breakfast, First dose on 10/02/24 at 0700, Do not crush, chew, or split. 0603 (Given - Provider: Cyndy Rondon RN) 0551 (Given - Provider: Richelle Mehta RN) 0700 (Due) polyethylene glycol (Glycolax, Miralax) packet 17 g 17 g, oral, Daily, First dose on 10/02/24 at 0900 0911 (Not Given - Provider: Tori Norwood RN - Reason: NPO) 0937 (Given - Provider: Lilliana Porter RN) 0900 (Due) sennosides (Senokot) tablet 17.2 mg 17.2 mg (2 tablet), oral, Daily, First dose on 10/02/24 at 0900 0928 (Given - Provider: Tori Norwood RN) 0938 (Given - Provider: Lilliana Porter RN) 0900 (Due) sodium phosphates (Fleets) 19-7 gram/118 mL enema 1 enema (COMPLETED) 1 enema, rectal, Once, On Fri10/04/24 at 1500, For 1 dose 1535 (Given - Provider: Tori Norwood RN) tamsulosin (Flomax) 24 hr capsule 0.4 mg 0.4 mg, oral, Daily, First dose on Fri10/02/24 at 0900, Give 30 minutes after the same mealtime each day. Capsules should be swallowed whole; do not crush, chew, or open. 0928 (Given - Provider: Tori Norwood RN) 0938 (Given - Provider: Lilliana Porter RN) 0900 (Due) ticagrelor (Brilinta) tablet 90 mg 90 mg, oral, 2 times daily, First dose (after last modification) on Fri10/05/24 at 0900 1533 (Held by provider - Provider: ALYSON Jaime - Reason: Other - Comment: Gross hematuria)1538 (Unheld by provider - Provider: ALYSON Jaime) 0938 (Given - Provider: Lilliana Porter RN)2214 (Given - Provider: Richelle Mehta RN) 0900 (Due)2100 (Due) traZODone (Desyrel) tablet 25 mg 25 mg, oral, Nightly, First dose on Fri10/04/24 at 2100 2104 (Given - Provider: Richelle Mehta RN) 2214 (Given - Provider: Richelle Mehta RN) 2100 (Due) Continuous Medication Order 10/04/2024 10/05/2024 10/06/2024 glycine 1.5 % irrigation solution 3,000 mL 3,000 mL, irrigation, Continuous, Starting on 10/02/24 at 1800, Bladder irrigation PRN Medication Order 10/04/2024 10/05/2024 10/06/2024 acetaminophen (Tylenol) tablet 650 mg 650 mg, oral, Every 6 hours PRN, pain mild (1-3), first line, pain moderate (4-6), first line, headaches, Starting on 10/02/24 at 0607, If ordered PRN for pain, nurse is permitted to administer this medication for higher pain scores based on patient preference? Yes 0937 (Given - Provider: Vivi Porter, SMOOTH)1602 (Given - Provider: Lilliana Porter, SMOOTH) dextrose 50 % injection 12.5 g 12.5 g, intravenous, Every 15 min PRN, For blood glucose 41 to 70 mg/dL, Starting on 10/02/24 at 0522, May repeat until blood glucose level reaches 100 mg/dL or greater. Push 2 - 3 mL/minute if patient has secure IV access. dextrose 50 % injection 25 g 25 g, intravenous, Every 15 min PRN, For blood glucose less than or equal to 40 mg/dL, Starting on 10/02/24 at 0522, May repeat until blood glucose level reaches 100 mg/dL or greater. Push 2 - 3 mL/minute if patient has secure IV access. glucagon (Glucagen) injection 1 mg 1 mg, intramuscular, Every 15 min PRN, blood glucose less than or equal to 40 mg/dL - see comments, For blood glucose less than or equal to 40 mg/dL and no IV access, Starting on 10/02/24 at 0522, Give until blood glucose is 100 mg/dL or greater. If patient DOES NOT HAVE secure IV access & patient is unconscious, NPO or is unable to eat or drink. glucagon (Glucagen) injection 1 mg 1 mg, intramuscular, Every 15 min PRN, blood glucose 41 to 70 mg/dL - see comments, For blood glucose 41 to 70 mg/dL and no IV access, Starting on 10/02/24 at 0522, Give until blood glucose is 100 mg/dL or greater. If patient DOES NOT HAVE secure IV access & patient is unconscious, NPO or is unable to eat or drink. magnesium hydroxide (Milk of Magnesia) 400 mg/5 mL suspension 5 mL 5 mL, oral, Daily PRN, constipation, first line, Starting on 10/04/24 at 1533, Follow administration with 8 ounces of water. melatonin tablet 3 mg 3 mg, oral, Nightly PRN, sleep, insomnia, Starting on 10/02/24 at 0607 Linked Groups Order Group 1: nicotine (Nicoderm CQ) 21 mg/24 hr patch 1 patchJump to med 1 patch, transdermal, Administer over 24 Hours, Daily, First dose on 10/02/24 at 0900, For 42 days Followed by nicotine (Nicoderm CQ) 14 mg/24 hr patch 1 patchJump to med 1 patch, transdermal, Administer over 24 Hours, Daily, First dose on 11/13/24 at 0900, For 14 days Followed by nicotine (Nicoderm CQ) 7 mg/24 hr patch 1 patchJump to med 1 patch, transdermal, Administer over 24 Hours, Daily, First dose on 11/27/24 at 0900, For 14 days FOR RECORDS PERTAINING TO PATIENTS WHO ARE [...] BE BASED ON THE PRIMARY CLINICAL RECORDS. [facility]. provides no warranty or guarantee of the accuracy or completeness of information in this document.
[2024-10-28 05:16] LABS: Basophils Percent Auto 0.2 % (0.2-2.0); Eosinophils Absolute Auto 0.1 10^3/uL (0.0-0.7); Eosinophils Percent Auto 0.5 % (0.9-7.0); Hematocrit 31.9 % (42.0-54.0); Hemoglobin 10.6 g/dL (14.0-18.0); Immature Granulocytes Abs Auto 0.02 10^3/uL (0.00-0.03); Immature Granulocytes Pct Auto 0.2 % (0.0-0.5); Lymphocytes Percent Auto 9.4 % (20.5-60.0); Mean Corpuscular HGB Conc 33.2 g/dL (29.9-35.2); Mean Corpuscular Hemoglobin 26.8 pg (25.9-34.0); Mean Corpuscular Volume 80.6 fL (80.0-94.0); Mean Platelet Volume 8.7 fL (9.5-13.5); Monocytes Absolute Auto 0.7 10^3/uL (0.3-0.8); Monocytes Percent Auto 6.4 % (1.7-12.0); Neutrophils Absolute Auto 8.4 10^3/uL (1.4-6.5); Neutrophils Percent Auto 83.3 % (43.0-75.0); Platelet Count 251 10^3/uL (150-450); Red Blood Count 3.96 10^6/uL (4.70-6.10); Red Cell Distribution Width 13.9 % (11.0-15.0); White Blood Count 10.1 10^3/uL (4.0-11.0)
[2024-10-28 05:32] LABS: Anion Gap 13.2; BUN Creatinine Ratio 30.3; Calcium 8.5 mg/dL (8.5-10.1); Carbon Dioxide 26.4 mmol/L (21.0-32.0); Chloride 100 mmol/L (98-107); Estimated GFR (African America >60 (>=60 mL/min/1.73m^2); Estimated GFR (Non-African Ame >60 (>=60 mL/min/1.73m^2); Glucose 163 mg/dL (74-106); Potassium 3.6 mmol/L (3.5-5.1); Sodium 136 mmol/L (136-145)
[2024-10-28 05:34] LABS: INR 1.12; Partial Thromboplastin Time 23.4 sec (22.3-36.2); Prothrombin Time 11.7 sec (9.0-11.6)
--- NOTE | 2024-10-28 05:50 | PC.NURSE ---
Bloody urine in Cyr bag and blood coming from around cath. Folet cath removed and new 3way 24 Sami placed, 350 drainage obtained . Irrigated with 1000 mls sterile saline, with return of 1000 mls sterile saline. Multiple small clots obtained with red urine / blood that over irrigation time to a light pink. Continuous irrigation set up and started. Will continue to monitor
[2024-10-28] MEDS: WATER FOR IRRIGATION, STERILE 3,000 ML IRRIG.SOLN 3000 ML IRRIGATION ×3 (06:37→08:27)
--- NOTE | 2024-10-28 06:37 | ED.GENADUL1 ---
HPI HPI - General Adult General Chief complaint: Urogenital-Male Stated complaint: BLEEDING Time Seen by Provider: 10/28/24 04:26 Source: patient and caregiver Mode of arrival: ambulance History of Present Illness HPI narrative: 69-year-old male to the emergency department with chief complaint of hematuria. Patient had his Lira catheter swapped out yesterday. He has had blood in the urine ever since. He has had nakia hematuria overnight. He is on Brilinta and aspirin for an MCA stenosis with history of stroke. Lira catheter in place for chronic urinary retention. He follows with [facility]. He has had some bladder spasms. Otherwise at his baseline health. No fever, sweats, chills, flank pain. Related Data Home Medications ?Medication ?Instructions ?Recorded ?Confirmed aspirin 81 mg tablet,delayed 81 mg PO .QD 03/31/24 10/28/24 release flash glucose scanning reader 03/31/24 09/29/24 (FreeStyle Kathie 2 [place]) flash glucose sensor (FreeStyle 03/31/24 09/29/24 Kathie 2 Sensor kit) insulin glargine 100 unit/mL (3 15 unit subcut .QHS 03/31/24 10/28/24 mL) subcutaneous pen (Lantus Solostar U-100 Insulin) insulin syringe-needle U-100 1 mL 03/31/24 09/29/24 30 gauge x 7/16 atorvastatin 40 mg tablet 40 mg PO DAILY 06/05/24 10/28/24 gabapentin 100 mg capsule 100 mg PO TID 06/05/24 10/28/24 melatonin 3 mg capsule 6 mg PO DAILY 06/05/24 10/28/24 pantoprazole 40 mg tablet,delayed 40 mg PO .q24 06/05/24 10/28/24 release (Protonix) tamsulosin 0.4 mg capsule 0.4 mg PO .qhs 06/05/24 10/28/24 ticagrelor 90 mg tablet (Brilinta) 90 mg PO BID 06/05/24 10/28/24 trazodone 50 mg tablet 25 mg PO DAILY 06/05/24 10/28/24 insulin lispro 100 unit/mL 1 sliding scale dose subcut ACHS 09/29/24 10/28/24 subcutaneous pen (Admelog SoloStar U-100 Insulin lispro) magnesium hydroxide 400 mg/5 mL 5 ml PO .qhs PRN constipation 09/29/24 10/28/24 oral suspension (Dulcolax (magnesium hydroxide)) magnesium oxide 400 mg PO DAILY 09/29/24 10/28/24 metoprolol succinate 50 mg 50 mg PO QDAY 09/29/24 10/28/24 tablet,extended release 24 hr polyethylene glycol 3350 17 17 g PO DAILY 09/29/24 10/28/24 gram/dose oral powder (ClearLax) sennosides 8.6 mg tablet (Senna 17.2 mg PO DAILY 09/29/24 10/28/24 Lax) sennosides 8.6 mg-docusate sodium 1 tab-cap PO DAILY 09/29/24 10/28/24 50 mg tablet (Senna with Docusate Sodium) Previous Rx's ?Medication ?Instructions ?Recorded cefuroxime axetil 500 mg tablet 500 mg PO BID 7 days #14 tabs 09/30/24 Allergies Allergy/AdvReac Type Severity Reaction Status Date / Time No Known Drug Allergies Allergy Verified 10/28/24 04:28 Opioid HPI Opioid Management Most Recent Opioid Data: Last Pain Scale 5 10/01/24 21:13 10/01/24 Last Pain Intensity 3 04/01/24 10:16 04/01/24 Last ORT Total Score 7 09/29/24 13:05 09/29/24 Last ORT Risk Category Moderate Risk 09/29/24 13:05 09/29/24 Review of Systems ROS Status of ROS 10 or more systems reviewed and unremarkable except as noted in history and below [facility] Medical History Chronic indwelling Lira catheter ?Z97.8 - Presence of other specified devices (ICD-10) H/O: stroke with residual effects ?I69.30 - Unspecified sequelae of cerebral infarction (ICD-10) CKD (chronic kidney disease) ?N18.9 - Chronic kidney disease, unspecified (ICD-10) CVA (cerebral vascular accident) ?I63.9 - Cerebral infarction, unspecified (ICD-10) Anxiety and depression ?F41.9 - Anxiety disorder, unspecified (ICD-10) ?F32.A - Depression, unspecified (ICD-10) Benign prostatic hyperplasia with lower urinary tract symptoms ?N40.1 - Benign prostatic hyperplasia with lower urinary tract symptoms (ICD-10) Hemiplegia affecting left nondominant side ?G81.94 - Hemiplegia, unspecified affecting left nondominant side (ICD-10) Hematoma ?T14.8XXA - Other injury of unspecified body region, initial encounter (ICD-10) Bursitis ?M71.9 - Bursopathy, unspecified (ICD-10) History of CVA (cerebrovascular accident) ?Z86.73 - Personal history of transient ischemic attack (TIA), and cerebral infarction without residual deficits (ICD-10) DM2 (diabetes mellitus, type 2) ?E11.9 - Type 2 diabetes mellitus without complications (ICD-10) Osteoarthritis ?M19.90 - Unspecified osteoarthritis, unspecified site (ICD-10) HTN (hypertension) ?I10 - Essential (primary) hypertension (ICD-10) Hyperlipidemia ?E78.5 - Hyperlipidemia, unspecified (ICD-10) Surgical History H/O repair of right rotator cuff ?Z98.890 - Other specified postprocedural states (ICD-10) History of total left knee replacement ?Z96.652 - Presence of left artificial knee joint (ICD-10) Family History Sister Family history of cancer Mother Family history of cancer Grandmother Family history of stroke Social History Within the past year, how often did you have a drink containing alcohol: never Score interpretation: A score less than 4 is consistent with normal alcohol consumption. Smoking status: Former smoker Non-prescribed substance use: denies use Highest level of school completed/degree received: high school graduate Little interest or pleasure in doing things: not at all Feeling down, depressed, or hopeless: not at all Exam Narrative Exam Narrative: VITALS: I have reviewed the triage vital signs. GENERAL: Well developed, well appearing adult in no acute distress. NEURO: Alert and oriented. Moves all extremities. Face is symmetric and expressive. EYES: PERRL. No scleral icterus or conjunctival injection. No discharge. HENT: Normocephalic, atraumatic. Hearing is grossly intact. Nares grossly patent and without discharge. Mucous membranes moist. NECK: No JVD. Patient moves neck without restriction. CARDIO: Rhythm regular. Normal rate. No murmur, rub, or gallop. Pulses equal bilaterally in the upper and lower extremity. No lower extremity edema. PULM: Lungs clear to auscultation in all arreola. No wheezes, rales, or rhonchi. No conversational dyspnea. No splinting, stridor, or accessory muscle use. GI/: Abdomen is soft and non-tender. Normoactive bowel sounds. Lira catheter in place with nakia hematuria, palpable bladder. EXTREMITIES: Symmetric muscle bulk. No joint swelling. No clubbing, cyanosis, or deformity. SKIN: Warm and dry. Normal turgor. No rash or lesions appreciated. PSYCH: Mood, affect, and interaction is appropriate to the setting. Constitutional Vital Signs, click to edit/add: Last Vital Signs Temp 97.7 F 10/28/24 04:26 Pulse 91 H 10/28/24 04:26 Resp 18 10/28/24 04:26 BP 125/84 10/28/24 04:26 Pulse Ox 98 10/28/24 04:26 O2 Del Method Room Air 10/28/24 04:26 Course Vital Signs Vital signs: Vital Signs Temperature 97.7 F 10/28/24 04:26 Pulse Rate 91 H 10/28/24 04:26 Respiratory Rate 18 10/28/24 04:26 Blood Pressure 125/84 10/28/24 04:26 Pulse Oximetry 98 10/28/24 04:26 Oxygen Delivery Method Room Air 10/28/24 04:26 Temperature 97.7 F 10/28/24 04:26 Pulse Rate 91 H 10/28/24 04:26 Respiratory Rate 18 10/28/24 04:26 Blood Pressure 125/84 10/28/24 04:26 Pulse Oximetry 98 10/28/24 04:26 Oxygen Delivery Method Room Air 10/28/24 04:26 Medical Decision Making MDM Narrative Medical decision making narrative: 69-year-old male to the emergency department with chief complaint of hematuria. Vital stable, the patient is afebrile. He does have nakia hematuria on exam. He has a palpable bladder. Concern for urinary retention. CBC, chemistry, bladder scan are ordered. Urinalysis to be obtained. CBC without acute abnormality. No change in his hemoglobin. Kidney function and electrolytes are normal. Bladder scan concerning for urinary retention with >488cc w/ lira in place. His Lira catheter was replaced with a three-way Lira catheter. Nursing staff manually irrigated with numerous clots extracted. CBI was initiated. Patient had similar clinical course with his last 2 Lira catheter changes. On one of the visits he was able to be discharged home. On the other he required continuous CBI and admission. Care was signed out to Dr. Clayton with results of CBI x2 bags and trial w/ hold pending. Diagnosis: Hematuria Clot retention of urine Mikey Mehta DO, FAAEM Medical Records Medical records reviewed: Yes I reviewed the patient's medical records Lab Data Lab results reviewed: Yes I reviewed the patient's lab results Labs: Lab Results 10/28/24 Range/Units 05:09 WBC 10.1 (4.0-11.0) 10^3/uL RBC 3.96 L (4.70-6.10) 10^6/uL Hgb 10.6 L (14.0-18.0) g/dL Hct 31.9 L (42.0-54.0) % MCV 80.6 (80.0-94.0) fL MCH 26.8 (25.9-34.0) pg MCHC 33.2 (29.9-35.2) g/dL RDW 13.9 (11.0-15.0) % Plt Count 251 (150-450) 10^3/uL MPV 8.7 L (9.5-13.5) fL Neut % (Auto) 83.3 H (43.0-75.0) % Lymph % (Auto) 9.4 L (20.5-60.0) % [place] % (Auto) 6.4 (1.7-12.0) % Eos % (Auto) 0.5 L (0.9-7.0) % Baso % (Auto) 0.2 (0.2-2.0) % Neut # (Auto) 8.4 H (1.4-6.5) 10^3/uL Lymph # (Auto) 1.0 L (1.2-3.8) 10^3/uL [place] # (Auto) 0.7 (0.3-0.8) 10^3/uL Eos # (Auto) 0.1 (0.0-0.7) 10^3/uL Baso # (Auto) 0.0 (0.0-0.1) 10^3/uL Abs Immat Gran (auto) 0.02 (0.00-0.03) 10^3/uL Imm/Tot Granulo (auto) 0.2 (0.0-0.5) % PT 11.7 H (9.0-11.6) sec INR 1.12 APTT 23.4 (22.3-36.2) sec Sodium 136 (136-145) mmol/L Potassium 3.6 (3.5-5.1) mmol/L Chloride 100 (98-107) mmol/L Carbon Dioxide 26.4 (21.0-32.0) mmol/L Anion Gap 13.2 BUN 20.0 H (7.0-18.0) mg/dL Creatinine 0.66 L (0.70-1.30) mg/dL Est GFR ( Amer) >60 (>=60 mL/min/1.73m^2) Est GFR (Non-Af Amer) >60 (>=60 mL/min/1.73m^2) BUN/Creatinine Ratio 30.3 Glucose 163 H (74-106) mg/dL Calcium 8.5 (8.5-10.1) mg/dL Discharge Plan Discharge Chief Complaint: Urogenital-Male Clinical Impression: Hematuria, Clot retention of urine Patient Disposition: Still a Patient Prescriptions / Home Meds: No Action atorvastatin 40 mg tablet 40 mg PO DAILY Brilinta 90 mg tablet 90 mg PO BID gabapentin 100 mg capsule 100 mg PO TID melatonin 3 mg capsule 6 mg PO DAILY pantoprazole [Protonix] 40 mg tablet,delayed release (DR/EC) 40 mg PO .q24 tamsulosin 0.4 mg capsule 0.4 mg PO .qhs trazodone 50 mg tablet 25 mg PO DAILY magnesium hydroxide [Dulcolax (magnesium hydroxide)] 400 mg/5 mL suspension 5 ml PO .qhs PRN (Reason: constipation) magnesium oxide 400 mg magnesium capsule 400 mg PO DAILY metoprolol succinate 50 mg tablet extended release 24 hr 50 mg PO QDAY polyethylene glycol 3350 [ClearLax] 17 gram/dose powder 17 g PO DAILY sennosides [Senna Lax] 8.6 mg tablet 17.2 mg PO DAILY sennosides-docusate sodium [Senna with Docusate Sodium] 8.6-50 mg tablet 1 tab-cap PO DAILY insulin lispro [Admelog SoloStar U-100 Insulin] 100 unit/mL insulin pen 1 sliding scale dose SUBCUT ACHS cefuroxime axetil 500 mg tablet 500 mg PO BID 7 Days Qty: 14 0RF aspirin 81 mg tablet,delayed release (DR/EC) 81 mg PO .QD (DME) insulin syringe-needle U-100 1 mL 30 gauge X 7/16 syringe MISCELLANEOUS insulin glargine [Lantus Solostar U-100 Insulin] 100 unit/mL (3 mL) insulin pen 15 unit SUBCUT .QHS (DME) FreeStyle Kathie 2 Sensor Kit MISCELLANEOUS (DME) FreeStyle Kathie 2 [place] Misc MISCELLANEOUS Print Language: Sammarinese Referrals: Vinnie Garza DO [Primary Care Provider] - 1 week
--- NOTE | 2024-10-28 08:33 | US_ITS ---
The [address] [address] Patient Name: VASHTI MASSEY MRN: [id number] date: 1955 Sex: M Assigned Patient Location: ED.MAIN Current Patient Location: [place] Accession/Order Number: [id number] Exam Date: 10/28/2024 08:40 Report Date: 10/28/2024 10:12 At the request of: CHANELL RAND Procedure: US bladder EXAM: US bladder HISTORY: Hematuria COMPARISON: CT 09/29/2024. TECHNIQUE: Grayscale and color FINDINGS: The urinary bladder is mildly distended. Presence of a balloon catheter. Heterogeneous lobular soft tissue echogenicity mass within the urinary bladder surrounding the bladder catheter measuring 5.0 x 4.8 cm. No definite color flow identified within the antral portion of the mass however peripherally there is some color flow US/US bladder IMPRESSION: Heterogeneous soft tissue echotexture in the urinary bladder, consider bladder mass with hemorrhage Electronically authenticated by: CHRIS PINA Date: 10/28/2024 10:12
--- NOTE | 2024-10-28 08:35 | ED_ITS ---
HPI - Male Genitourinary General Chief complaint: Urogenital-Male Stated complaint: BLEEDING Time Seen by Provider: 10/28/24 04:26 Source: patient and caregiver Mode of arrival: ambulance History of Present Illness HPI Narrative: 69-year-old male presented to the emergency department and was initially seen by Dr. Mehta and signed out to me after discussing the case with him thoroughly. Please see his full history and physical exam Related Data Home Medications ?Medication ?Instructions ?Recorded ?Confirmed aspirin 81 mg tablet,delayed 81 mg PO .QD 03/31/24 10/28/24 release flash glucose scanning reader 03/31/24 09/29/24 (FreeStyle Kathie 2 [place]) flash glucose sensor (FreeStyle 03/31/24 09/29/24 Kathie 2 Sensor kit) insulin glargine 100 unit/mL (3 15 unit subcut .QHS 03/31/24 10/28/24 mL) subcutaneous pen (Lantus Solostar U-100 Insulin) insulin syringe-needle U-100 1 mL 03/31/24 09/29/24 30 gauge x 7/16 atorvastatin 40 mg tablet 40 mg PO DAILY 06/05/24 10/28/24 gabapentin 100 mg capsule 100 mg PO TID 06/05/24 10/28/24 melatonin 3 mg capsule 6 mg PO DAILY 06/05/24 10/28/24 pantoprazole 40 mg tablet,delayed 40 mg PO .q24 06/05/24 10/28/24 release (Protonix) tamsulosin 0.4 mg capsule 0.4 mg PO .qhs 06/05/24 10/28/24 ticagrelor 90 mg tablet (Brilinta) 90 mg PO BID 06/05/24 10/28/24 trazodone 50 mg tablet 25 mg PO DAILY 06/05/24 10/28/24 insulin lispro 100 unit/mL 1 sliding scale dose subcut ACHS 09/29/24 10/28/24 subcutaneous pen (Admelog SoloStar U-100 Insulin lispro) magnesium hydroxide 400 mg/5 mL 5 ml PO .qhs PRN constipation 09/29/24 10/28/24 oral suspension (Dulcolax (magnesium hydroxide)) magnesium oxide 400 mg PO DAILY 09/29/24 10/28/24 metoprolol succinate 50 mg 50 mg PO QDAY 09/29/24 10/28/24 tablet,extended release 24 hr polyethylene glycol 3350 17 17 g PO DAILY 09/29/24 10/28/24 gram/dose oral powder (ClearLax) sennosides 8.6 mg tablet (Senna 17.2 mg PO DAILY 09/29/24 10/28/24 Lax) sennosides 8.6 mg-docusate sodium 1 tab-cap PO DAILY 09/29/24 10/28/24 50 mg tablet (Senna with Docusate Sodium) Previous Rx's ?Medication ?Instructions ?Recorded cefuroxime axetil 500 mg tablet 500 mg PO BID 7 days #14 tabs 09/30/24 Allergies Allergy/AdvReac Type Severity Reaction Status Date / Time No Known Drug Allergies Allergy Verified 10/28/24 04:28 [facility] Medical History Chronic indwelling Cyr catheter ?Z97.8 - Presence of other specified devices (ICD-10) H/O: stroke with residual effects ?I69.30 - Unspecified sequelae of cerebral infarction (ICD-10) CKD (chronic kidney disease) ?N18.9 - Chronic kidney disease, unspecified (ICD-10) CVA (cerebral vascular accident) ?I63.9 - Cerebral infarction, unspecified (ICD-10) Anxiety and depression ?F41.9 - Anxiety disorder, unspecified (ICD-10) ?F32.A - Depression, unspecified (ICD-10) Benign prostatic hyperplasia with lower urinary tract symptoms ?N40.1 - Benign prostatic hyperplasia with lower urinary tract symptoms (ICD- 10) Hemiplegia affecting left nondominant side ?G81.94 - Hemiplegia, unspecified affecting left nondominant side (ICD-10) Hematoma ?T14.8XXA - Other injury of unspecified body region, initial encounter (ICD- 10) Bursitis ?M71.9 - Bursopathy, unspecified (ICD-10) History of CVA (cerebrovascular accident) ?Z86.73 - Personal history of transient ischemic attack (TIA), and cerebral infarction without residual deficits (ICD-10) DM2 (diabetes mellitus, type 2) ?E11.9 - Type 2 diabetes mellitus without complications (ICD-10) Osteoarthritis ?M19.90 - Unspecified osteoarthritis, unspecified site (ICD-10) HTN (hypertension) ?I10 - Essential (primary) hypertension (ICD-10) Hyperlipidemia ?E78.5 - Hyperlipidemia, unspecified (ICD-10) Surgical History H/O repair of right rotator cuff ?Z98.890 - Other specified postprocedural states (ICD-10) History of total left knee replacement ?Z96.652 - Presence of left artificial knee joint (ICD-10) Family History Sister Family history of cancer Mother Family history of cancer Grandmother Family history of stroke Social History Within the past year, how often did you have a drink containing alcohol: never Score interpretation: A score less than 4 is consistent with normal alcohol consumption. Smoking status: Former smoker Non-prescribed substance use: denies use Highest level of school completed/degree received: high school graduate Little interest or pleasure in doing things: not at all Feeling down, depressed, or hopeless: not at all Exam Constitutional Vital Signs, click to edit/add: Last Vital Signs Temp 97.7 F 10/28/24 04:26 Pulse 89 10/28/24 06:38 Resp 16 10/28/24 06:38 BP 130/71 10/28/24 06:38 Pulse Ox 96 10/28/24 06:38 O2 Del Method Room Air 10/28/24 04:26 Course Vital Signs Vital signs: Vital Signs Temperature 97.7 F 10/28/24 04:26 Pulse Rate 91 H 10/28/24 04:26 Respiratory Rate 18 10/28/24 04:26 Blood Pressure 125/84 10/28/24 04:26 Pulse Oximetry 98 10/28/24 04:26 Oxygen Delivery Method Room Air 10/28/24 04:26 Temperature 97.7 F 10/28/24 04:26 Pulse Rate 89 10/28/24 06:38 Respiratory Rate 16 10/28/24 06:38 Blood Pressure 130/71 10/28/24 06:38 Pulse Oximetry 96 10/28/24 06:38 Oxygen Delivery Method Room Air 10/28/24 04:26 MDM - Male Genitourinary MDM Narrative Medical decision making narrative: The patient continues to have hematuria despite manual irrigation and continuous bladder irrigation. Hemoglobin is unchanged from a month ago. I have discussed the case with Dr. Carlos and the patient will be admitted for observation and continued irrigation. Bladder ultrasound is ordered at her request. He is on aspirin and Brilinta. Differential Diagnosis Differential diagnosis: Likely other (Hematuria) Lab Data Attestation: I reviewed the patient's lab results. Labs: Lab Results 10/28/24 Range/Units 05:09 WBC 10.1 (4.0-11.0) 10^3/uL RBC 3.96 L (4.70-6.10) 10^6/uL Hgb 10.6 L (14.0-18.0) g/dL Hct 31.9 L (42.0-54.0) % MCV 80.6 (80.0-94.0) fL MCH 26.8 (25.9-34.0) pg MCHC 33.2 (29.9-35.2) g/dL RDW 13.9 (11.0-15.0) % Plt Count 251 (150-450) 10^3/uL MPV 8.7 L (9.5-13.5) fL Neut % (Auto) 83.3 H (43.0-75.0) % Lymph % (Auto) 9.4 L (20.5-60.0) % Cottle % (Auto) 6.4 (1.7-12.0) % Eos % (Auto) 0.5 L (0.9-7.0) % Baso % (Auto) 0.2 (0.2-2.0) % Neut # (Auto) 8.4 H (1.4-6.5) 10^3/uL Lymph # (Auto) 1.0 L (1.2-3.8) 10^3/uL Cottle # (Auto) 0.7 (0.3-0.8) 10^3/uL Eos # (Auto) 0.1 (0.0-0.7) 10^3/uL Baso # (Auto) 0.0 (0.0-0.1) 10^3/uL Abs Immat Gran (auto) 0.02 (0.00-0.03) 10^3/uL Imm/Tot Granulo (auto) 0.2 (0.0-0.5) % PT 11.7 H (9.0-11.6) sec INR 1.12 APTT 23.4 (22.3-36.2) sec Sodium 136 (136-145) mmol/L Potassium 3.6 (3.5-5.1) mmol/L Chloride 100 (98-107) mmol/L Carbon Dioxide 26.4 (21.0-32.0) mmol/L Anion Gap 13.2 BUN 20.0 H (7.0-18.0) mg/dL Creatinine 0.66 L (0.70-1.30) mg/dL Est GFR ( Amer) >60 (>=60 mL/min/1.73m^2) Est GFR (Non-Af Amer) >60 (>=60 mL/min/1.73m^2) BUN/Creatinine Ratio 30.3 Glucose 163 H (74-106) mg/dL Calcium 8.5 (8.5-10.1) mg/dL Discharge Plan Discharge Chief Complaint: Urogenital-Male Clinical Impression: Hematuria, Clot retention of urine Patient Disposition: Admitted as Observation Time of Disposition Decision: 08:34 Condition: Fair
--- NOTE | 2024-10-28 09:19 | P.HP_ITS ---
HPI H&P: HPI History of Present Illness Chief complaint: BLEEDING, HEMATURIA Narrative: Patient with a history of hematuria approximately 1 month ago, return to ED ER with increasing hematuria. Case was discussed with urology with clots noted on CT scan, patient will need continuous bladder irrigation, admitted for workup and treatment of same When I saw patient in the emergency room, resting calmly bed but very sleepy, did awake and answer questions and seems appropriate at the time. Only complaint is diffuse abdominal pain Opioid HPI Opioid Management Most Recent Pain and Opioid Data: Last Pain Scale 5 10/01/24 21:13 10/01/24 Last Pain Intensity 3 04/01/24 10:16 04/01/24 Last ORT Total Score 7 09/29/24 13:05 09/29/24 Last ORT Risk Category Moderate Risk 09/29/24 13:05 09/29/24 Review of Systems ROS Status of ROS 10 or more systems reviewed and unremark able except as noted in history and below [facility] Medical History (Updated 10/28/24 @ 06:45 by Mikey Mehta MD) Chronic indwelling Cyr catheter ?Z97.8 - Presence of other specified devices (ICD-10) H/O: stroke with residual effects ?I69.30 - Unspecified sequelae of cerebral infarction (ICD-10) CKD (chronic kidney disease) ?N18.9 - Chronic kidney disease, unspecified (ICD-10) CVA (cerebral vascular accident) ?I63.9 - Cerebral infarction, unspecified (ICD-10) Anxiety and depression ?F41.9 - Anxiety disorder, unspecified (ICD-10) ?F32.A - Depression, unspecified (ICD-10) Benign prostatic hyperplasia with lower urinary tract symptoms ?N40.1 - Benign prostatic hyperplasia with lower urinary tract symptoms (ICD- 10) Hemiplegia affecting left nondominant side ?G81.94 - Hemiplegia, unspecified affecting left nondominant side (ICD-10) Hematoma ?T14.8XXA - Other injury of unspecified body region, initial encounter (ICD- 10) Bursitis ?M71.9 - Bursopathy, unspecified (ICD-10) History of CVA (cerebrovascular accident) ?Z86.73 - Personal history of transient ischemic attack (TIA), and cerebral infarction without residual deficits (ICD-10) DM2 (diabetes mellitus, type 2) ?E11.9 - Type 2 diabetes mellitus without complications (ICD-10) Osteoarthritis ?M19.90 - Unspecified osteoarthritis, unspecified site (ICD-10) HTN (hypertension) ?I10 - Essential (primary) hypertension (ICD-10) Hyperlipidemia ?E78.5 - Hyperlipidemia, unspecified (ICD-10) Surgical History H/O repair of right rotator cuff ?Z98.890 - Other specified postprocedural states (ICD-10) History of total left knee replacement ?Z96.652 - Presence of left artificial knee joint (ICD-10) Family History Sister Family history of cancer Mother Family history of cancer Grandmother Family history of stroke Social History Within the past year, how often did you have a drink containing alcohol: never Score interpretation: A score less than 4 is consistent with normal alcohol consumption. Smoking status: Former smoker Non-prescribed substance use: denies use Highest level of school completed/degree received: high school graduate Little interest or pleasure in doing things: not at all Feeling down, depressed, or hopeless: not at all Meds Home Medications and Allergies Home Medications ?Medication ?Instructions ?Recorded ?Confirmed ?Type aspirin 81 mg tablet,delayed 81 mg PO .QD 03/31/24 10/28/24 History release flash glucose scanning reader 03/31/24 09/29/24 History (FreeStyle Kathie 2 [place]) flash glucose sensor (FreeStyle 03/31/24 09/29/24 History Kathie 2 Sensor kit) insulin glargine 100 unit/mL (3 15 unit subcut .QHS 03/31/24 10/28/24 History mL) subcutaneous pen (Lantus Solostar U-100 Insulin) insulin syringe-needle U-100 1 mL 03/31/24 09/29/24 History 30 gauge x 7/16 atorvastatin 40 mg tablet 40 mg PO DAILY 06/05/24 10/28/24 History gabapentin 100 mg capsule 100 mg PO TID 06/05/24 10/28/24 History melatonin 3 mg capsule 6 mg PO DAILY 06/05/24 10/28/24 History pantoprazole 40 mg tablet,delayed 40 mg PO .q24 06/05/24 10/28/24 History release (Protonix) tamsulosin 0.4 mg capsule 0.4 mg PO .qhs 06/05/24 10/28/24 History ticagrelor 90 mg tablet (Brilinta) 90 mg PO BID 06/05/24 10/28/24 History trazodone 50 mg tablet 25 mg PO DAILY 06/05/24 10/28/24 History insulin lispro 100 unit/mL 1 sliding scale dose subcut ACHS 09/29/24 10/28/24 History subcutaneous pen (Admelog SoloStar U-100 Insulin lispro) magnesium hydroxide 400 mg/5 mL 5 ml PO .qhs PRN constipation 09/29/24 10/28/24 History oral suspension (Dulcolax (magnesium hydroxide)) magnesium oxide 400 mg PO DAILY 09/29/24 10/28/24 History metoprolol succinate 50 mg 50 mg PO QDAY 09/29/24 10/28/24 History tablet,extended release 24 hr polyethylene glycol 3350 17 17 g PO DAILY 09/29/24 10/28/24 History gram/dose oral powder (ClearLax) sennosides 8.6 mg tablet (Senna 17.2 mg PO DAILY 09/29/24 10/28/24 History Lax) sennosides 8.6 mg-docusate sodium 1 tab-cap PO DAILY 09/29/24 10/28/24 History 50 mg tablet (Senna with Docusate Sodium) cefuroxime axetil 500 mg tablet 500 mg PO BID 7 days #14 tabs 09/30/24 10/28/24 Rx Allergies Allergy/AdvReac Type Severity Reaction Status Date / Time No Known Drug Allergies Allergy Verified 10/28/24 04:28 Exam Constitutional Vital Signs, click to edit/add: Last Vital Signs Temp 97.7 F 10/28/24 04:26 Pulse 72 10/28/24 08:51 Resp 16 10/28/24 08:51 BP 130/71 10/28/24 06:38 Pulse Ox 96 10/28/24 08:51 O2 Del Method Room Air 10/28/24 04:26 Documenting provider has reviewed patient's vital signs: yes Common normals: apparent distress (Mild distress due to abdominal pain) Respiratory Common normals: normal respiratory effort, no retractions and clear to auscultation bilaterally Cardio Common normals: regular rate and regular rhythm GI Common normals: Normal to inspection, nondistended, normoactive bowel sounds present; tender (Diffuse abdominal tenderness, more than expected for hematuria) Bladder/kidney exam: catheter in place Catheter type (Male): urethral (Bright red blood in Cyr) Results Labs Labs: Short CBC 10/28/24 Range/Units 05:09 WBC 10.1 (4.0-11.0) 10^3/uL Hgb 10.6 L (14.0-18.0) g/dL Hct 31.9 L (42.0-54.0) % Plt Count 251 (150-450) 10^3/uL BMP 10/28/24 05:09 Sodium 136 Potassium 3.6 Chloride 100 Carbon Dioxide 26.4 BUN 20.0 H Creatinine 0.66 L Glucose 163 H Calcium 8.5 Assessment and Plan Assessment and Plan (1) Clot retention of urine: (2) Hematuria: (3) CKD (chronic kidney disease): (4) CVA (cerebral vascular accident): (5) Hemiplegia affecting left nondominant side: Qualifiers: Hemiplegia type: flaccid Hemiplegia etiology: late effect of cerebrovascular disease Cerebrovascular disease type: cerebral infarction Qualified Code(s): I69.354 - Hemiplegia and hemiparesis following cerebral infarction affecting left non-dominant side (6) DM2 (diabetes mellitus, type 2): Qualifiers: Diabetes mellitus shelter insulin use: with shelter use Diabetes m demetri complication status: without complication Qualified Code(s): E11.9 - Type 2 diabetes mellitus without complications; Z79.4 - retirement (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 insulin (7) HTN (hypertension): Qualifiers: Hypertension type: primary hypertension Qualified Code(s): I10 - Essential (primary) hypertension Plan Admission findings: Acute bright red blood in Cyr catheter, clots noted on CT scan, white blood cell count normal but significant left shift, hemoglobin slightly low but at that is baseline. Acute hematuria-will hold off on aspirin and Brilinta --plan per urology, with the left shift on his white blood cell count will start patient on antibiotics, urinalysis and culture pending History of stroke-should be stable to hold the anticoagulants for a few days. Diabetes mellitus-insulin sliding scale Hypercholesterolemia continue with current medications Hypomagnesemia-continue supplementation Constipation-continue with home medications BPH-continue with home medications Insomnia-continue with home medications Admission status: Patient with significant hematuria and clot burden on CT scan, consult to urology, patient unable to be improved over the first 48 hours, medically necessary treatment for the severe hematuria with clots will require at least a 2 midnight stay. Inpatient status. Urinary Catheter Management Urinary Catheter Management 3-way Urethral: Cath placed during this visit: yes Urethral indwelling: Yes Reason for continuing: acute urinary retention Insertion date: 10/28/24
[2024-10-28] MEDS: SODIUM CHLORIDE IRRIG SOLUTION 3,000 ML 3000 ML IRR ×8 (10:03→16:43)
[2024-10-28 11:03] LABS: Alanine Aminotransferase 21 U/L (16-63); Albumin Globulin Ratio 1.3; Albumin Level 3.6 g/dL (3.4-5.0); Alkaline Phosphatase 68 U/L (46-116); Aspartate Amino Transferase 15 U/L (15-37); Bilirubin Direct 0.1 mg/dL (0.0-0.2); Bilirubin Total 0.4 mg/dL (0.2-1.0); Globulin 2.7 g/dL; Total Protein 6.3 g/dL (6.4-8.2)
[2024-10-28 11:25] LABS: Glucometer 145 mg/dL (74-106)
[2024-10-28] MEDS: LACTATED RINGER'S SOLUTION 1,000 ML 100 ML IV ×2 (11:38→21:29)
[2024-10-28 12:04] LABS: Amylase 25 U/L (25-115)
[2024-10-28 12:12] LABS: Bilirubin Urine NEGATIVE (NEGATIVE); Blood Urine LARGE (NEGATIVE); Clarity Urine SL CLOUDY (CLEAR); Glucose Urine UA NEGATIVE (NEGATIVE); Ketones Urine NEGATIVE (NEGATIVE); Leukocyte Esterase Urine TRACE (NEGATIVE); Nitrite Urine NEGATIVE (NEGATIVE); Protein Urine NEGATIVE (NEG/TRACE); Urobilinogen Urine 0.2 EU/dL (0.2-1.0)
[2024-10-28 12:27] LABS: Color Urine PINK (YELLOW)
[2024-10-28 12:28] LABS: Bacteria Urine TRACE #/HPF (NONE SEEN); Mucus Urine NONE SEEN (NONE SEEN); Squamous Epithelial Cell Urine RARE #/LPF (NONE/RARE)
[2024-10-28 12:29] LABS: Cast Seen? NONE SEEN #/LPF (NONE SEEN); Crystals Seen? None Seen #/HPF (None Seen); RBC Urine 50-75 #/HPF (0-2); Urine Culture Indicated YES
[2024-10-28] MEDS: LEVOFLOXACIN IN DEXTROSE 5 % 750 MG/150 ML PREMIX 100 MG IV (13:13)
--- NOTE | 2024-10-28 14:44 | SWNOTE1 ---
SW reviewed previous notes from previous admission and [facility].
--- NOTE | 2024-10-28 14:57 | P.CN_ITS ---
Consult Note: HPI Data of Consult Patient: known to practice within the last 3 years Consult date: 10/28/24 Requesting Physician: Brayan Farmer MD Primary Care Provider: Vinnie Garza, Consult Narrative Reason for consult: gross hematuria Narrative: 69-year-old male with a history of CVA 09/2023 on Brilinta, with indwelling lira since stroke, BPH with recurrent gross hematuria/clot retention who presented to the ER overnight with clot retention. Patient had his Lira catheter swapped out yesterday at care home. He has had blood in the urine ever since. Bladder scan >488cc w/ lira in place. His Lira catheter was replaced with a 24Fr three-way Lira catheter. Manually irrigated significant clots and CBI started. Pt unable to be weaned. Pt admitted to hospitalist and Urology consulted for further evaluation. Vital stable, afebrile, hemoglobin stable from prior, Cr wnl. Bladder US shows some clots in dependent portion of bladder. ER nurses were able to further irrigate out clots after. CBI is now flowing well, light peach on slow flow. Pt has some generalized abdominal discomfort, but no further bladder spasms. Denies fever, chills, nausea or emesis. Constipated, no substantial BM since a month ago when at [facility]. Recurrent gross hematuria: 09/26/24- bladder full of clots, transferred to [facility] (no urology/anesthesia coverage). Pt states he improved on CBI 10/06/24 - [facility] with clot retention, small amt of clot burden per CT AP. 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 BL RPG neg. Grade 3 trabeculations. Severe bilobar hyperplasia. Started on finasteride 10/25/24-Dr. Yony Laughlin office to establish care- urine nae tinged at that time. Plan for cont lira until pt functional status improves, f/u 3 mths to discuss TURP. On Brilinta and aspirin for an MCA stenosis with history of stroke. Denies hx Afib or TX. Denies prior prostate/urologic surgeries. Denies issues voiding prior to stroke cc:: CC: Brayan Farmer MD Review of Systems ROS Status of ROS 10 or more systems reviewed and unremark able except as noted in history and below Constitutional Denies: fever or chills Eyes Denies: change in vision or blurry vision Ears, nose, mouth, and throat Denies: difficulty swallowing or change in hearing Cardiovascular Denies: chest pain or palpitations Respiratory Denies: shortness of breath or cough Gastrointestinal Reports: abdominal pain and constipation; Denies: nausea or vomiting Genitourinary Reports: blood in urine; Denies: painful urination Integumentary/Breast Denies: rash or skin swelling Neurological Reports: weakness in extremities (baseline L hemiparalysis); Denies: slurred speech Hematologic/Lymphatic Reports: easy bruising and easy bleeding PFSH [facility] Medical History Chronic indwelling Lira catheter ?Z97.8 - Presence of other specified devices (ICD-10) H/O: stroke with residual effects ?I69.30 - Unspecified sequelae of cerebral infarction (ICD-10) CKD (chronic kidney disease) ?N18.9 - Chronic kidney disease, unspecified (ICD-10) CVA (cerebral vascular accident) ?I63.9 - Cerebral infarction, unspecified (ICD-10) Anxiety and depression ?F41.9 - Anxiety disorder, unspecified (ICD-10) ?F32.A - Depression, unspecified (ICD-10) Benign prostatic hyperplasia with lower urinary tract symptoms ?N40.1 - Benign prostatic hyperplasia with lower urinary tract symptoms (ICD- 10) Hemiplegia affecting left nondominant side ?G81.94 - Hemiplegia, unspecified affecting left nondominant side (ICD-10) Hematoma ?T14.8XXA - Other injury of unspecified body region, initial encounter (ICD- 10) Bursitis ?M71.9 - Bursopathy, unspecified (ICD-10) History of CVA (cerebrovascular accident) ?Z86.73 - Personal history of transient ischemic attack (TIA), and cerebral infarction without residual deficits (ICD-10) DM2 (diabetes mellitus, type 2) ?E11.9 - Type 2 diabetes mellitus without complications (ICD-10) Osteoarthritis ?M19.90 - Unspecified osteoarthritis, unspecified site (ICD-10) HTN (hypertension) ?I10 - Essential (primary) hypertension (ICD-10) Hyperlipidemia ?E78.5 - Hyperlipidemia, unspecified (ICD-10) Surgical History H/O repair of right rotator cuff ?Z98.890 - Other specified postprocedural states (ICD-10) History of total left knee replacement ?Z96.652 - Presence of left artificial knee joint (ICD-10) Family History Sister Family history of cancer Mother Family history of cancer Grandmother Family history of stroke Social History Within the past year, how often did you have a drink containing alcohol: never Score interpretation: A score less than 4 is consistent with normal alcohol consumption. Smoking status: Former smoker Non-prescribed substance use: denies use Highest level of school completed/degree received: high school graduate Little interest or pleasure in doing things: not at all Feeling down, depressed, or hopeless: not at all Meds Home Medications and Allergies Home Medications ?Medication ?Instructions ?Recorded ?Confirmed ?Type aspirin 81 mg tablet,delayed 81 mg PO .QD 03/31/24 10/28/24 History release flash glucose scanning reader 03/31/24 10/28/24 History (FreeStyle Kathie 2 [place]) flash glucose sensor (FreeStyle 03/31/24 10/28/24 History Kathie 2 Sensor kit) insulin glargine 100 unit/mL (3 15 unit subcut .QHS 03/31/24 10/28/24 History mL) subcutaneous pen (Lantus Solostar U-100 Insulin) insulin syringe-needle U-100 1 mL 03/31/24 10/28/24 History 30 gauge x 7/16 atorvastatin 40 mg tablet 40 mg PO DAILY 06/05/24 10/28/24 History gabapentin 100 mg capsule 100 mg PO TID 06/05/24 10/28/24 History pantoprazole 40 mg tablet,delayed 40 mg PO .q24 06/05/24 10/28/24 History release (Protonix) tamsulosin 0.4 mg capsule 0.4 mg PO .qhs 06/05/24 10/28/24 History ticagrelor 90 mg tablet (Brilinta) 90 mg PO BID 06/05/24 10/28/24 History trazodone 50 mg tablet 25 mg PO DAILY 06/05/24 10/28/24 History insulin lispro 100 unit/mL 1 sliding scale dose subcut ACHS 09/29/24 10/28/24 History subcutaneous pen (Admelog SoloStar U-100 Insulin lispro) magnesium hydroxide 400 mg/5 mL 5 ml PO .qhs PRN constipation 09/29/24 10/28/24 History oral suspension (Dulcolax (magnesium hydroxide)) magnesium oxide 400 mg PO DAILY 09/29/24 10/28/24 History metoprolol succinate 50 mg 50 mg PO QDAY 09/29/24 10/28/24 History tablet,extended release 24 hr polyethylene glycol 3350 17 17 g PO DAILY 09/29/24 10/28/24 History gram/dose oral powder (ClearLax) sennosides 8.6 mg tablet (Senna 17.2 mg PO DAILY 09/29/24 10/28/24 History Lax) sennosides 8.6 mg-docusate sodium 1 tab-cap PO DAILY 09/29/24 10/28/24 History 50 mg tablet (Senna with Docusate Sodium) acetaminophen 1,000 mg PO TID PRN pain 10/28/24 10/28/24 History finasteride 5 mg tablet 5 mg PO DAILY 10/28/24 10/28/24 History Allergies Allergy/AdvReac Type Severity Reaction Status Date / Time No Known Drug Allergies Allergy Verified 10/28/24 04:28 Exam Narrative Exam Narrative: No acute distress, appears nontoxic Nonlabored respirations, symmetric chest rise, on room air Normal rate and rhythm, no peripheral edema Midline and LLQ firmness and TTP, palpable stool, extends down towards suprapubic region however bladder scan 45 cc, unlikely bladder. Non distended No CVA TTP. 24Fr 3way lira to gravity, clear to peach tinged on moderate flow CBI. Circumcised Moves R sided extremities, no deformities, baseline left sided decreased movement Alert and oriented x 4, no acute focal deficits Skin dry, intact Appropriate, cooperative Constitutional Vital Signs, click to edit/add: Last Vital Signs Temp 97.9 F 10/28/24 13:54 Pulse 85 10/28/24 13:54 Resp 20 10/28/24 13:54 BP 129/80 10/28/24 13:54 Pulse Ox 95 10/28/24 13:54 O2 Del Method Room Air 10/28/24 13:54 Results Labs Labs: Short CBC 10/28/24 Range/Units 05:09 WBC 10.1 (4.0-11.0) 10^3/uL Hgb 10.6 L (14.0-18.0) g/dL Hct 31.9 L (42.0-54.0) % Plt Count 251 (150-450) 10^3/uL BMP 10/28/24 05:09 Sodium 136 Potassium 3.6 Chloride 100 Carbon Dioxide 26.4 BUN 20.0 H Creatinine 0.66 L Glucose 163 H Calcium 8.5 Liver Function 10/28/24 Range/Units 05:09 Total Bilirubin 0.4 (0.2-1.0) mg/dL Direct Bilirubin 0.1 (0.0-0.2) mg/dL AST 15 (15-37) U/L ALT 21 (16-63) U/L Alkaline Phosphatase 68 (46-116) U/L Albumin 3.6 (3.4-5.0) g/dL Urine 10/28/24 Range/Units 12:00 Urine Color [place] A (YELLOW) Urine Clarity Sl cloudy (CLEAR) Urine pH 6.0 (5.0-9.0) Ur Specific [place] 1.010 (1.005-1.025) Urine Protein Negative (NEG/TRACE) mg/dL Urine Glucose (UA) Negative (NEGATIVE) mg/dL Assessment and Plan Assessment and Plan (1) Clot retention of urine: (2) Hematuria: (3) BPH loc w urin obs/LUTS: (4) Anticoagulant long-term use: Plan 69 year old male as above on Brilinta for CVA 09/2023 and BPH with LUTS managed with chronic indwelling lira since stroke admitted with recurrent gross hematuria with clot retention, 3rd occurrence over one month. This recurrence likely due to mild prostatic trauma from lira exchange, exacerbated by Brilinta. Prostate ~ 88g calculated from CT. At bedside, manually irrigated out scant clots after lira manipulation, urine ranges from clear to pink. Bladder scan 45 cc. CBI restarted mod-slow flow, faint peach. Overall pt is stable, hematuria improving. Hgb stable. -Cont holding Brilinta as comorbidities allow. Given recurrence, recommend prescribing physician find alternative, milder medication or treatment to allow pt to be off of anticoagulation. -Cont CBI, titrate to clear. Manually irrigate PRN for clots or worsening hematuria -OK for diet, NPO at [place] in case unable to wean off CBI tmrw. Would then proceed to OR for cysto, clot evac, fulguration of bleeders -Restart finasteride inpt to help reduce prostatic bleeding -Outpt follow up with Dr. Bhakta for established urologic care
--- NOTE | 2024-10-28 15:21 | SWNOTE1 ---
Important Message from Medicare reviewed and discussed with patient. Pt. verbalized understanding and signed the form. Original given to patient and copy placed in patient?s chart. SW spoke with pt and he does plan to return to [facility] at discharge. He voiced he likes it there and has been there for almost a year now. SW to follow as needed. BRENDA sent ED note, H&P, vitals, labs, and nursing notes to [facility].
[2024-10-28] MEDS: FINASTERIDE 5 MG TABLET PO (15:50)
[2024-10-28 16:00] LABS: Glucometer 137 mg/dL (74-106)
[2024-10-28] MEDS: ACETAMINOPHEN 500 MG TABLET 1000 MG PO (18:19)
[2024-10-28] MEDS: GABAPENTIN 100 MG CAPSULE PO (21:28)
[2024-10-28] MEDS: TAMSULOSIN HCL 0.4 MG CAPSULE PO (21:28)
[2024-10-28] MEDS: INSULIN ASPART 300 UNIT/3 ML PEN SUBQ (21:29)
[2024-10-28] MEDS: TRAZODONE HCL 50 MG TABLET 25 MG PO (21:29)
[2024-10-28] MEDS: INSULIN GLARGINE 300 UNIT/3 ML INSULN.PEN 15 UNIT SQ (21:29)
[2024-10-28 21:34] LABS: Glucometer 162 mg/dL (74-106)
[2024-10-29 04:00] VITALS: BP 115/66; PULSE 85; TEMP 36.5; O2SAT 95
[2024-10-29] MEDS: ACETAMINOPHEN 500 MG TABLET 1000 MG PO (04:46)
[2024-10-29] MEDS: SODIUM CHLORIDE IRRIG SOLUTION 3,000 ML 3000 ML IRR (04:47)
[2024-10-29 05:29] VITALS: O2SAT 94
[2024-10-29 07:17] LABS: Basophils Percent Auto 0.4 % (0.2-2.0); Eosinophils Absolute Auto 0.1 10^3/uL (0.0-0.7); Eosinophils Percent Auto 2.5 % (0.9-7.0); Hematocrit 26.4 % (42.0-54.0); Hemoglobin 8.6 g/dL (14.0-18.0); Immature Granulocytes Abs Auto 0.02 10^3/uL (0.00-0.03); Immature Granulocytes Pct Auto 0.4 % (0.0-0.5); Lymphocytes Absolute Auto 1.4 10^3/uL (1.2-3.8); Mean Corpuscular HGB Conc 32.6 g/dL (29.9-35.2); Mean Corpuscular Hemoglobin 26.5 pg (25.9-34.0); Mean Corpuscular Volume 81.5 fL (80.0-94.0); Mean Platelet Volume 9.2 fL (9.5-13.5); Monocytes Absolute Auto 0.4 10^3/uL (0.3-0.8); Monocytes Percent Auto 7.1 % (1.7-12.0); Neutrophils Absolute Auto 3.7 10^3/uL (1.4-6.5); Neutrophils Percent Auto 64.6 % (43.0-75.0); Platelet Count 217 10^3/uL (150-450); Red Blood Count 3.24 10^6/uL (4.70-6.10); Red Cell Distribution Width 14.2 % (11.0-15.0); White Blood Count 5.7 10^3/uL (4.0-11.0)
[2024-10-29 07:28] LABS: Anion Gap 9.7; BUN Creatinine Ratio 32.7; Calcium 8.6 mg/dL (8.5-10.1); Chloride 102 mmol/L (98-107); Estimated GFR (African America >60 (>=60 mL/min/1.73m^2); Estimated GFR (Non-African Ame >60 (>=60 mL/min/1.73m^2); Glucose 89 mg/dL (74-106); Potassium 3.7 mmol/L (3.5-5.1); Sodium 136 mmol/L (136-145)
[2024-10-29 07:35] LABS: Glucometer 100 mg/dL (74-106)
[2024-10-29 07:59] LABS: BOX Test Reference Lab FIRELANDS
[2024-10-29 08:00] VITALS: BP 109/57; PULSE 109; TEMP 36.3; O2SAT 93
--- NOTE | 2024-10-29 09:22 | CM.NOTE ---
Rounds made with Dr. Farmer. Dr. Farmer discussed labs and treatment plan. CBI currently stopped and to recheck labs later today and if stable may discharge later today back to [facility].
[2024-10-29] MEDS: LACTATED RINGER'S SOLUTION 1,000 ML 100 ML IV (09:23)
[2024-10-29] MEDS: METOPROLOL SUCCINATE 50 MG TAB.ER.24H PO (09:24)
--- NOTE | 2024-10-29 09:46 | P.DS_ITS ---
DS: Providers Provider Date of admission: 10/28/24 10:06 Primary care physician: Vinnie Garza DO Consults: 10/28/24 10:06 Consult to Pharmacy Routine Consulting Provider: Reason for consultation: Please [place] me when Med Rec is Updated Has provider been notified: No Consult to Urology Routine Consulting Provider: Ester Carlos Reason for consultation: hematuria Has provider been notified: No Occupational Therapy Eval and Treat Routine Reason for consultation: Only if needed for Rehab Has provider been notified: No Physical Therapy Eval and Treat Routine Reason for consultation: Eval and Treat Has provider been notified: No DS: Diagnosis Discharge Diagnosis (1) Clot retention of urine: (2) Hematuria: (3) BPH loc w urin obs/LUTS: (4) Anticoagulant long-term use: Plan Admission findings: Acute bright red blood in Cyr catheter, clots noted on CT scan, white blood cell count normal but significant left shift, hemoglobin slightly low but at that is baseline. Acute hematuria-will hold off on aspirin and Brilinta --plan per urology, with the left shift on his white blood cell count will start patient on antibiotics, urinalysis and culture pending History of stroke-should be stable to hold the anticoagulants for a few days. Diabetes mellitus-insulin sliding scale Hypercholesterolemia continue with current medications Hypomagnesemia-continue supplementation Constipation-continue with home medications BPH-continue with home medications Insomnia-continue with home medications Admission status: Patient with significant hematuria and clot burden on CT scan, consult to urology, patient unable to be improved over the first 48 hours, medically necessary treatment for the severe hematuria with clots will require at least a 2 midnight stay. Inpatient status. DS: Summary Hospital Course Hospital Course: Patient admitted with bright red blood coming from catheter, has significant anemia as well, patient was admitted placed on three-way catheter with bladder irrigations overnight. He had large clot burden noted on CT scan, the CBI seemed to resolve this by the morning. It was clamped in the morning, no further hematuria throughout the day today, his hemoglobin is fairly stable does appear to have possible acute UTI as well as will continue patient on antibiotics, he is stable for discharge back to long-term care facility, hold off on aspirin and Brilinta until Friday, 2 more days, medications see list, follow-up with PCP at his long-term care facility Time Spent with Patient Time attestation: Total time spent providing and/or coordinating discharge services: Exam Constitutional Vital Signs, click to edit/add: Last Vital Signs Temp 97.3 F L 10/29/24 08:00 Pulse 109 H 10/29/24 08:00 Resp 18 10/29/24 08:00 BP 109/57 10/29/24 08:00 Pulse Ox 93 L 10/29/24 08:00 O2 Del Method Room Air 10/29/24 08:00 Documenting provider has reviewed patient's vital signs: yes Common normals: no apparent distress (No distress this morning) Respiratory Common normals: normal respiratory effort, no retractions and clear to auscultation bilaterally Cardio Common normals: regular rate and regular rhythm GI Common normals: Normal to inspection, nondistended, normoactive bowel sounds present; tender (Diffuse abdominal tenderness, more than expected for hematuria) Bladder/kidney exam: catheter in place Catheter type (Male): urethral (Bright red blood in Cyr) DS: Data Data Completed and Pending Labs on day of discharge: Labs from last 24 hours 10/29/24 10/29/24 10/28/24 07:32 06:17 21:28 WBC 5.7 RBC 3.24 L Hgb 8.6 L Hct 26.4 L MCV 81.5 MCH 26.5 MCHC 32.6 RDW 14.2 Plt Count 217 MPV 9.2 L Neut % (Auto) 64.6 Lymph % (Auto) 25.0 [place] % (Auto) 7.1 Eos % (Auto) 2.5 Baso % (Auto) 0.4 Neut # (Auto) 3.7 Lymph # (Auto) 1.4 [place] # (Auto) 0.4 Eos # (Auto) 0.1 Baso # (Auto) 0.0 Abs Immat Gran (auto) 0.02 Imm/Tot Granulo (auto) 0.4 Sodium 136 Potassium 3.7 Chloride 102 Carbon Dioxide 28.0 Anion Gap 9.7 BUN 18.0 Creatinine 0.55 L Est GFR ( Amer) >60 Est GFR (Non-Af Amer) >60 BUN/Creatinine Ratio 32.7 Glucose 89 Calcium 8.6 Total Bilirubin Direct Bilirubin AST ALT Alkaline Phosphatase Total Protein Albumin Globulin Albumin/Globulin Ratio Amylase Lipase Urine Color Urine Clarity Urine pH Ur Specific [place] Urine Protein Urine Glucose (UA) Urine Ketones Urine Occult Blood Urine Nitrite Urine Bilirubin Urine Urobilinogen Ur Leukocyte Esterase Urine RBC Urine WBC Ur Squamous Epith Cells Urine Crystals Urine Bacteria Urine Casts Urine Mucus Ur Culture Indicated? Ref Lab Order Date Ref Lab Test Name Ref Test Addition Info POC Glucose 100 162 H 10/28/24 10/28/24 10/28/24 15:58 12:00 11:20 WBC RBC Hgb Hct MCV MCH MCHC RDW Plt Count MPV Neut % (Auto) Lymph % (Auto) [place] % (Auto) Eos % (Auto) Baso % (Auto) Neut # (Auto) Lymph # (Auto) [place] # (Auto) Eos # (Auto) Baso # (Auto) Abs Immat Gran (auto) Imm/Tot Granulo (auto) Sodium Potassium Chloride Carbon Dioxide Anion Gap BUN Creatinine Est GFR ( Amer) Est GFR (Non-Af Amer) BUN/Creatinine Ratio Glucose Calcium Total Bilirubin Direct Bilirubin AST ALT Alkaline Phosphatase Total Protein Albumin Globulin Albumin/Globulin Ratio Amylase Lipase Urine Color [place] A Urine Clarity Sl cloudy Urine pH 6.0 Ur Specific [place] 1.010 Urine Protein Negative Urine Glucose (UA) Negative Urine Ketones Negative Urine Occult Blood Large A Urine Nitrite Negative Urine Bilirubin Negative Urine Urobilinogen 0.2 Ur Leukocyte Esterase Trace A Urine RBC 50-75 A Urine WBC 2-5 A Ur Squamous Epith Cells Rare Urine Crystals None seen Urine Bacteria Trace A Urine Casts None seen Urine Mucus None seen Ur Culture Indicated? Yes Ref Lab Order Date 10/28/24 Ref Lab Test Name Urine culture Ref Test Addition Info [facility] POC Glucose 137 H 145 H 10/28/24 05:09 WBC RBC Hgb Hct MCV MCH MCHC RDW Plt Count MPV Neut % (Auto) Lymph % (Auto) [place] % (Auto) Eos % (Auto) Baso % (Auto) Neut # (Auto) Lymph # (Auto) [place] # (Auto) Eos # (Auto) Baso # (Auto) Abs Immat Gran (auto) Imm/Tot Granulo (auto) Sodium Potassium Chloride Carbon Dioxide Anion Gap BUN Creatinine Est GFR ( Amer) Est GFR (Non-Af Amer) BUN/Creatinine Ratio Glucose Calcium Total Bilirubin 0.4 Direct Bilirubin 0.1 AST 15 ALT 21 Alkaline Phosphatase 68 Total Protein 6.3 L Albumin 3.6 Globulin 2.7 Albumin/Globulin Ratio 1.3 Amylase 25 Lipase 35.0 Urine Color Urine Clarity Urine pH Ur Specific [place] Urine Protein Urine Glucose (UA) Urine Ketones Urine Occult Blood Urine Nitrite Urine Bilirubin Urine Urobilinogen Ur Leukocyte Esterase Urine RBC Urine WBC Ur Squamous Epith Cells Urine Crystals Urine Bacteria Urine Casts Urine Mucus Ur Culture Indicated? Ref Lab Order Date Ref Lab Test Name Ref Test Addition Info POC Glucose Discharge Plan Discharge Disposition: Xfer [facility] Condition: Fair Discharge Medications: New levofloxacin 500 mg tablet 500 mg PO DAILY 7 Days Qty: 7 0RF Continued atorvastatin 40 mg tablet 40 mg PO DAILY gabapentin 100 mg capsule 100 mg PO TID pantoprazole [Protonix] 40 mg tablet,delayed release (DR/EC) 40 mg PO .q24 tamsulosin 0.4 mg capsule 0.4 mg PO .qhs trazodone 50 mg tablet 25 mg PO DAILY magnesium hydroxide [Dulcolax (magnesium hydroxide)] 400 mg/5 mL suspension 5 ml PO .qhs PRN (Reason: constipation) magnesium oxide 400 mg magnesium capsule 400 mg PO DAILY metoprolol succinate 50 mg tablet extended release 24 hr 50 mg PO QDAY polyethylene glycol 3350 [ClearLax] 17 gram/dose powder 17 g PO DAILY sennosides [Senna Lax] 8.6 mg tablet 17.2 mg PO DAILY sennosides-docusate sodium [Senna with Docusate Sodium] 8.6-50 mg tablet 1 tab-cap PO DAILY insulin lispro [Admelog SoloStar U-100 Insulin] 100 unit/mL insulin pen 1 sliding scale dose SUBCUT ACHS (DME) insulin syringe-needle U-100 1 mL 30 gauge X 7/16 syringe MISCELLANEOUS insulin glargine [Lantus Solostar U-100 Insulin] 100 unit/mL (3 mL) insulin pen 15 unit SUBCUT .QHS (DME) FreeStyle Kathie 2 Sensor Kit MISCELLANEOUS (DME) FreeStyle Kathie 2 [place] Misc MISCELLANEOUS finasteride 5 mg tablet 5 mg PO DAILY acetaminophen 500 mg tablet 1,000 mg PO TID PRN (Reason: pain) Held Brilinta 90 mg tablet 90 mg PO BID Hold Instructions: Resume on 10/31/24. aspirin 81 mg tablet,delayed release (DR/EC) 81 mg PO .QD Hold Instructions: Resume on 10/31/24. Print Language: [place] State Archivist/Experimental Mechanic Electrical Instructions: Return to [facility] moth exterminator Forms: Portal Instructions Follow Up Appointments: Dr. Bhakta from [facility] office will be calling to set up a follow up appt. [phone] Discharge Date/Time: 10/29/24 16:01
[2024-10-29 10:43] VITALS: O2SAT 93
[2024-10-29 11:43] LABS: Glucometer 92 mg/dL (74-106)
--- NOTE | 2024-10-29 11:48 | SWNOTE1 ---
SW received a message from nurse and pt can be discharged back to [facility]. SW to set up stretcher transport.
[2024-10-29] MEDS: LEVOFLOXACIN IN DEXTROSE 5 % 750 MG/150 ML PREMIX 100 MG IV (12:05)
--- NOTE | 2024-10-29 12:06 | SWNOTE1 ---
BRENDA called and set up [facility] for 2:30. Nurse already notified daughter. BRENDA let [facility] know time and sent dc med rec over to Jessica at [facility]. BRENDA took packet to the floor. Pt is returning to [facility] detention
[2024-10-29] MEDS: GABAPENTIN 100 MG CAPSULE PO (13:57)
== END 2024-10-29 16:01 ==
LOC: ER 08:35 → MS 09:49
PROVIDERS: Student in an Organized Health Care Education/Training Program; Admitting Provider Family Medicine; Emergency Provider Emergency Medicine; PCP Internal Medicine; Visit Provider Family Medicine
DX: R31.0 Gross hematuria (principal); Z96.652 Presence of left artificial knee joint; R33.9 Retention of urine, unspecified; Z87.891 Personal history of nicotine dependence; Z79.82 Long term (current) use of aspirin; N32.89 Other specified disorders of bladder; R10.9 Unspecified abdominal pain; Z97.8 Presence of other specified devices; I69.354 Hemiplegia and hemiparesis following cerebral infarction affecting left non-dominant side; E11.22 Type 2 diabetes mellitus with diabetic chronic kidney disease; Z79.4 Long term (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 insulin; I12.9 Hypertensive chronic kidney disease with stage 1 through stage 4 chronic kidney disease, or unspecified chronic kidney disease; E78.00 Pure hypercholesterolemia, unspecified; E83.42 Hypomagnesemia; K59.00 Constipation, unspecified; G47.00 Insomnia, unspecified; Z79.899 Other long term (current) drug therapy; N40.1 Benign prostatic hyperplasia with lower urinary tract symptoms; Z79.01 Long term (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 anticoagulants; D64.9 Anemia, unspecified; N18.9 Chronic kidney disease, unspecified
CPT/HCPCS: 36415; 51702; 51798; 76857; 80048; 80076; 81001; 82150; 82948; 83690; 85025; 85610; 85730; 87086; 87150; 87186; 94667; 94668; 94761; 99285; G0378

== ENCOUNTER 2024-10-30 13:35 | Outpatient (REF) | payer MEDICARE, SELFPAY ==
[2024-10-30 14:18] LABS: Basophils Percent Auto 0.2 % (0.2-2.0); Eosinophils Absolute Auto 0.1 10^3/uL (0.0-0.7); Eosinophils Percent Auto 2.1 % (0.9-7.0); Hematocrit 24.6 % (42.0-54.0); Hemoglobin 7.8 g/dL (14.0-18.0); Lymphocytes Percent Auto 18.2 % (20.5-60.0); Mean Corpuscular HGB Conc 31.7 g/dL (29.9-35.2); Mean Corpuscular Hemoglobin 26.3 pg (25.9-34.0); Mean Corpuscular Volume 82.8 fL (80.0-94.0); Mean Platelet Volume 9.2 fL (9.5-13.5); Monocytes Absolute Auto 0.3 10^3/uL (0.3-0.8); Monocytes Percent Auto 5.3 % (1.7-12.0); Neutrophils Percent Auto 74.2 % (43.0-75.0); Platelet Count 236 10^3/uL (150-450); Red Blood Count 2.97 10^6/uL (4.70-6.10); Red Cell Distribution Width 14.3 % (11.0-15.0); White Blood Count 5.3 10^3/uL (4.0-11.0)
== END 2024-10-30 13:36 | disposition home or self-care (01) ==
LOC: LAB 13:35
PROVIDERS: PCP Internal Medicine; Visit Provider Internal Medicine
DX: N17.9 Acute kidney failure, unspecified (principal); N39.0 Urinary tract infection, site not specified; E11.36 Type 2 diabetes mellitus with diabetic cataract; I63.511 Cerebral infarction due to unspecified occlusion or stenosis of right middle cerebral artery; I69.30 Unspecified sequelae of cerebral infarction; D64.9 Anemia, unspecified; H53.8 Other visual disturbances; N18.31 Chronic kidney disease, stage 3a; E78.1 Pure hyperglyceridemia; R26.81 Unsteadiness on feet; R41.82 Altered mental status, unspecified; R53.1 Weakness; M17.11 Unilateral primary osteoarthritis, right knee
CPT/HCPCS: 36415; 85025

== ENCOUNTER 2024-11-01 09:33 | Outpatient (OUT) | payer MEDICARE, SELFPAY ==
[2024-11-01 10:18] LABS: Basophils Percent Auto 0.7 % (0.2-2.0); Eosinophils Absolute Auto 0.2 10^3/uL (0.0-0.7); Eosinophils Percent Auto 3.5 % (0.9-7.0); Hematocrit 29.2 % (42.0-54.0); Hemoglobin 9.1 g/dL (14.0-18.0); Immature Granulocytes Abs Auto 0.01 10^3/uL (0.00-0.03); Immature Granulocytes Pct Auto 0.2 % (0.0-0.5); Lymphocytes Absolute Auto 1.1 10^3/uL (1.2-3.8); Lymphocytes Percent Auto 26.3 % (20.5-60.0); Mean Corpuscular HGB Conc 31.2 g/dL (29.9-35.2); Mean Corpuscular Hemoglobin 25.5 pg (25.9-34.0); Mean Corpuscular Volume 81.8 fL (80.0-94.0); Mean Platelet Volume 8.6 fL (9.5-13.5); Monocytes Absolute Auto 0.3 10^3/uL (0.3-0.8); Monocytes Percent Auto 7.1 % (1.7-12.0); Neutrophils Absolute Auto 2.7 10^3/uL (1.4-6.5); Neutrophils Percent Auto 62.2 % (43.0-75.0); Platelet Count 265 10^3/uL (150-450); Red Blood Count 3.57 10^6/uL (4.70-6.10); Red Cell Distribution Width 14.2 % (11.0-15.0); White Blood Count 4.3 10^3/uL (4.0-11.0)
== END 2024-11-01 09:34 | disposition home or self-care (01) ==
LOC: LAB 09:35
PROVIDERS: PCP Internal Medicine; Visit Provider Internal Medicine
DX: R31.9 Hematuria, unspecified (principal); D64.9 Anemia, unspecified
CPT/HCPCS: 36415; 85025; 86850; 86900; 86901

== ENCOUNTER 2024-12-02 13:43 | Outpatient (OUT) | payer MEDICARE, SELFPAY ==
--- NOTE | 2024-12-02 13:47 | MR_ITS ---
The [address] [address] Patient Name: VASHTI MASSEY MRN: [id number] date: 1955 Sex: M Assigned Patient Location: MRI Current Patient Location: Accession/Order Number: [id number] Exam Date: 12/02/2024 14:00 Report Date: 12/07/2024 06:55 At the request of: ELEAZAR MAYORGA Procedure: MR abdomen wo con EXAMINATION: MR abdomen wo con HISTORY: Cholesterolosis Of Gallbladder COMPARISON: CT abdomen pelvis 09/29/2024 TECHNIQUE: A comprehensive MRI examination of the abdomen was performed to optimize visualization of suspected pathology. Images were obtained with and/or without intravenous Dotarem contrast as indicated by exam type. FINDINGS: LIVER: No enlargement, atrophy, abnormal signal, or significant focal lesion. BILIARY: Suspect collection of stones within dependent portion of gallbladder up to 9 mm in size. No appreciable wall thickening or abnormal duct dilation. PANCREAS: No lesion, fluid collection, ductal dilatation, or atrophy. SPLEEN: No enlargement or focal lesion. KIDNEYS: Multiple benign-appearing renal cysts bilaterally. Complex 9.4 cm multi thinly septated cyst arising from superior pole left kidney; not appreciably changed. ADRENALS: No mass or enlargement. AORTA/VASCULAR: No aneurysm or dissection. RETROPERITONEUM: No mass or adenopathy. BOWEL/MESENTERY: No visible mass, obstruction, or bowel wall thickening. ABDOMINAL WALL: No mass or hernia. BONES: No bony lesion or fracture. LUNG BASES: No visible pleural disease. Lung bases not well assessed with MRI. OTHER: Negative. MR/MR abdomen wo con IMPRESSION: 1. Suspect cholelithiasis. Polyps/masses are felt less likely. Ultrasound evaluation of the gallbladder would be beneficial for clarification. 2. Slightly concave. Multiseptated cyst arising from superior pole of left kidney, but favoring benign etiology. Multiple smaller benign-appearing cysts bilaterally. Electronically authenticated by: CALISTA MEAD Date: 12/07/2024 06:55
== END 2024-12-02 13:44 | disposition home or self-care (01) ==
LOC: MRI 13:43
PROVIDERS: PCP Internal Medicine
DX: K82.4 Cholesterolosis of gallbladder (principal); N28.1 Cyst of kidney, acquired
CPT/HCPCS: 74181

== ENCOUNTER 2025-04-21 16:55 | Emergency (ER) | payer MEDICARE, SELFPAY ==
[2025-04-21 16:57] VITALS: BP 167/88; PULSE 70; TEMP 37.1; O2SAT 98; BMI 26.8
--- NOTE | 2025-04-21 17:00 | ED.GENADUL1 ---
HPI HPI - General Adult General Chief complaint: Head Injury Stated complaint: HEAD INJURY Time Seen by Provider: 04/21/25 16:59 History of Present Illness HPI narrative: 69-year-old male presents to the emergency department for an injury to his head. He fell out of bed and hit his forehead. He was transported here by paramedics and his c-collar was placed upon his arrival. He states his head hurts and did not sustain any other injuries Related Data Home Medications ?Medication ?Instructions ?Recorded ?Confirmed aspirin 81 mg tablet,delayed 81 mg PO .QD 03/31/24 10/28/24 release Held on 10/29/24. Instructions: Resume on 10/31/24. flash glucose scanning reader 03/31/24 10/28/24 (NursenavStyle Kathie 2 [place]) flash glucose sensor (FreeStyle 03/31/24 10/28/24 Kathie 2 Sensor kit) insulin glargine 100 unit/mL (3 15 unit subcut .QHS 03/31/24 10/28/24 mL) subcutaneous pen (Lantus Solostar U-100 Insulin) insulin syringe-needle U-100 1 mL 03/31/24 10/28/24 30 gauge x 7/16 atorvastatin 40 mg tablet 40 mg PO DAILY 06/05/24 10/28/24 gabapentin 100 mg capsule 100 mg PO TID 06/05/24 10/28/24 pantoprazole 40 mg tablet,delayed 40 mg PO .q24 06/05/24 10/28/24 release (Protonix) tamsulosin 0.4 mg capsule 0.4 mg PO .qhs 06/05/24 10/28/24 ticagrelor 90 mg tablet (Brilinta) 90 mg PO BID 06/05/24 10/28/24 Held on 10/29/24. Instructions: Resume on 10/31/24. trazodone 50 mg tablet 25 mg PO DAILY 06/05/24 10/28/24 insulin lispro 100 unit/mL 1 sliding scale dose subcut ACHS 09/29/24 10/28/24 subcutaneous pen (Admelog SoloStar U-100 Insulin lispro) magnesium hydroxide 400 mg/5 mL 5 ml PO .qhs PRN constipation 09/29/24 10/28/24 oral suspension (Dulcolax (magnesium hydroxide)) magnesium oxide 400 mg PO DAILY 09/29/24 10/28/24 metoprolol succinate 50 mg 50 mg PO QDAY 09/29/24 10/28/24 tablet,extended release 24 hr polyethylene glycol 3350 17 17 g PO DAILY 09/29/24 10/28/24 gram/dose oral powder (ClearLax) sennosides 8.6 mg tablet (Senna 17.2 mg PO DAILY 09/29/24 10/28/24 Lax) sennosides 8.6 mg-docusate sodium 1 tab-cap PO DAILY 09/29/24 10/28/24 50 mg tablet (Senna with Docusate Sodium) acetaminophen 1,000 mg PO TID PRN pain 10/28/24 10/28/24 finasteride 5 mg tablet 5 mg PO DAILY 10/28/24 10/28/24 Previous Rx's ?Medication ?Instructions ?Recorded levofloxacin 500 mg tablet 500 mg PO DAILY 7 days #7 tabs 10/29/24 Allergies Allergy/AdvReac Type Severity Reaction Status Date / Time No Known Drug Allergies Allergy Verified 10/28/24 04:28 Opioid HPI Opioid Management Most Recent Opioid Data: Last Pain Scale 3 10/29/24, 05:38 Last Pain Intensity 3 04/01/24, 10:16 Last ORT Total Score 4 10/28/24, 10:01 Last ORT Risk Category Moderate Risk 10/28/24, 10:01 Review of Systems ROS Narrative A ten point review of systems is negative except as noted above. [facility] Medical History Chronic indwelling Cyr catheter ?Z97.8 - Presence of other specified devices (ICD-10) H/O: stroke with residual effects ?I69.30 - Unspecified sequelae of cerebral infarction (ICD-10) CKD (chronic kidney disease) ?N18.9 - Chronic kidney disease, unspecified (ICD-10) CVA (cerebral vascular accident) ?I63.9 - Cerebral infarction, unspecified (ICD-10) Anxiety and depression ?F41.9 - Anxiety disorder, unspecified (ICD-10) ?F32.A - Depression, unspecified (ICD-10) Benign prostatic hyperplasia with lower urinary tract symptoms ?N40.1 - Benign prostatic hyperplasia with lower urinary tract symptoms (ICD-10) Hemiplegia affecting left nondominant side ?G81.94 - Hemiplegia, unspecified affecting left nondominant side (ICD-10) Hematoma ?T14.8XXA - Other injury of unspecified body region, initial encounter (ICD-10) Bursitis ?M71.9 - Bursopathy, unspecified (ICD-10) History of CVA (cerebrovascular accident) ?Z86.73 - Personal history of transient ischemic attack (TIA), and cerebral infarction without residual deficits (ICD-10) DM2 (diabetes mellitus, type 2) ?E11.9 - Type 2 diabetes mellitus without complications (ICD-10) Osteoarthritis ?M19.90 - Unspecified osteoarthritis, unspecified site (ICD-10) HTN (hypertension) ?I10 - Essential (primary) hypertension (ICD-10) Hyperlipidemia ?E78.5 - Hyperlipidemia, unspecified (ICD-10) Surgical History H/O repair of right rotator cuff ?Z98.890 - Other specified postprocedural states (ICD-10) History of total left knee replacement ?Z96.652 - Presence of left artificial knee joint (ICD-10) Family History Sister Family history of cancer Mother Family history of cancer Grandmother Family history of stroke Social History Within the past year, how often did you have a drink containing alcohol: never Score interpretation: A score less than 4 is consistent with normal alcohol consumption. Smoking status: Former smoker Non-prescribed substance use: denies use Highest level of school completed/degree received: high school graduate Little interest or pleasure in doing things: not at all Feeling down, depressed, or hopeless: not at all Exam Narrative Exam Narrative: Nurses note and vital signs reviewed and patient is not hypoxic. General: The patient appears in no apparent distress. Patient is resting comfortably on cart. Skin: Warm, dry, no pallor noted. There is no rash noted. Head: Normocephalic, hematoma with abrasion on the right side of his forehead. No laceration Eye: Normal conjunctiva, no drainage Ears, Nose, Mouth, and Throat: oral mucosa is moist. Nares patent. Cardiovascular: Regular Rate and Rhythm Respiratory: Patient is in no distress, no accessory muscle use, lungs are clear to auscultation, no wheezing, rales or rhonchi. Chest wall not tender Back: non-tender GI: Soft and nontender Musculoskeletal: No palpable tenderness to his lower extremities. Neurological: Unable to move his left arm and left leg from remote stroke. He is fully awake alert and oriented x 4. Psychiatric: Cooperative Constitutional Vital Signs, click to edit/add: Last Vital Signs Temp 98.7 F 04/21/25 16:57 Pulse 67 04/21/25 18:36 Resp 18 04/21/25 18:36 BP 140/66 04/21/25 18:36 Pulse Ox 96 04/21/25 18:36 O2 Del Method Room Air 04/21/25 17:08 Course Vital Signs Vital signs: Vital Signs Temperature 98.7 F 04/21/25 16:57 Pulse Rate 70 04/21/25 16:57 Respiratory Rate 18 04/21/25 16:57 Blood Pressure 167/88 H 04/21/25 16:57 Pulse Oximetry 98 04/21/25 16:57 Oxygen Delivery Method Room Air 04/21/25 16:57 Temperature 98.7 F 04/21/25 16:57 Pulse Rate 67 04/21/25 18:36 Respiratory Rate 18 04/21/25 18:36 Blood Pressure 140/66 04/21/25 18:36 Pulse Oximetry 96 04/21/25 18:36 Oxygen Delivery Method Room Air 04/21/25 17:08 Medical Decision Making MDM Narrative Medical decision making narrative: CAT scan of brain and C-spine as well as x-rays of chest and hip are negative. He is able to be released back to [facility]. Tetanus status was updated. Findings were discussed with the patient. Differential Diagnosis Differential Diagnosis: Contusion, hematoma, intracranial hemorrhage, rib fracture, hip fracture Imaging Data Chest x-ray: Radiologist's impression: ITS Impressions Cervical Spine CT 04/21/25 17:25 IMPRESSION: NO CERVICAL SPINE FRACTURE Impression dictated by: Dereje Jalloh M.D. 04/21/2025 5:42 PM Dictation Location: [place] [address] Electronically authenticated by: [id number] Y Date: 04/21/2025 17:[address] 04/21/25 17:25 IMPRESSION: NO ACUTE INTRACRANIAL ABNORMALITY. 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 Impression dictated by: Dereje Jalloh M.D. 04/21/2025 5:39 PM Dictation Location: [place] [address] Electronically authenticated by: [id number] Y Date: 04/21/2025 17:39 Hip X-Ray 04/21/25 18:13 IMPRESSION: Mild degenerative change. Negative acute osseous abnormality. Impression dictated by: Dereje Jalloh M.D. 04/21/2025 6:33 PM Dictation Location: [place] [address] Electronically authenticated by: [id number] Y Date: 04/21/2025 18:33 Chest x-ray per radiologist shows no acute findings Discharge Plan Discharge Chief Complaint: Head Injury Clinical Impression: Traumatic hematoma of forehead Fall Qualifiers: Encounter type: initial encounter Qualified Code(s): W19.XXXA - Unspecified fall, initial encounter Patient Disposition: Home, Self-Care Time of Disposition Decision: 18:38 Condition: Good Mode of Transportation: Private Vehicle Prescriptions / Home Meds: No Action atorvastatin 40 mg tablet 40 mg PO DAILY Brilinta 90 mg tablet 90 mg PO BID gabapentin 100 mg capsule 100 mg PO TID pantoprazole [Protonix] 40 mg tablet,delayed release (DR/EC) 40 mg PO .q24 tamsulosin 0.4 mg capsule 0.4 mg PO .qhs trazodone 50 mg tablet 25 mg PO DAILY magnesium hydroxide [Dulcolax (magnesium hydroxide)] 400 mg/5 mL suspension 5 ml PO .qhs PRN (Reason: constipation) magnesium oxide 400 mg magnesium capsule 400 mg PO DAILY metoprolol succinate 50 mg tablet extended release 24 hr 50 mg PO QDAY polyethylene glycol 3350 [ClearLax] 17 gram/dose powder 17 g PO DAILY sennosides [Senna Lax] 8.6 mg tablet 17.2 mg PO DAILY sennosides-docusate sodium [Senna with Docusate Sodium] 8.6-50 mg tablet 1 tab-cap PO DAILY insulin lispro [Admelog SoloStar U-100 Insulin] 100 unit/mL insulin pen 1 sliding scale dose SUBCUT ACHS aspirin 81 mg tablet,delayed release (DR/EC) 81 mg PO .QD (DME) insulin syringe-needle U-100 1 mL 30 gauge X 7/16 syringe MISCELLANEOUS insulin glargine [Lantus Solostar U-100 Insulin] 100 unit/mL (3 mL) insulin pen 15 unit SUBCUT .QHS (DME) FreeStyle Kathie 2 Sensor Kit MISCELLANEOUS (DME) FreeStyle Kathie 2 [place] Misc MISCELLANEOUS finasteride 5 mg tablet 5 mg PO DAILY acetaminophen 500 mg tablet 1,000 mg PO TID PRN (Reason: pain) levofloxacin 500 mg tablet 500 mg PO DAILY 7 Days Qty: 7 0RF Print Language: South Sudanese Instructions: Fall Prevention for Older Adults (ED), Hematoma (ED) Referrals: Vinnie Garza DO [Primary Care Provider, Internal Medicine] - 1 week
[2025-04-21 17:08] VITALS: O2SAT 98
--- NOTE | 2025-04-21 17:25 | CT_ITS ---
The [address] [address] Patient Name: VASHTI MASSEY MRN: [id number] date: 1955 Sex: M Assigned Patient Location: ED.MAIN Current Patient Location: ER Accession/Order Number: [id number] Exam Date: 04/21/2025 17:39 Report Date: 04/21/2025 17:42 At the request of: CHANELL RAND MD Procedure: CT cervical spine wo con CT CERVICAL SPINE WITHOUT CONTRAST : CLINICAL HISTORY: Fall, hit head COMPARISON: 06/05/2024 TECHNIQUE: Spiral axial unenhanced images were obtained through the cervical spine. Sagittal, coronal reconstructions were also reviewed. This CT exam was performed using one or more following dose reduction techniques: Automated exposure control, adjustment of the mA and/or kV according to patient size, or use of iterative reconstruction technique. FINDINGS: Straightening and reversal normal lordosis. No fracture or malalignment. Moderate to severe intervertebral space narrowing and associated endplate osteophytosis C3-C7. Multilevel facet arthropathy greatest involving the upper cervical spine. There is mild to moderate canal narrowing C4-C5 and osteophytosis C5-6. No prevertebral soft tissue swelling. Lung apices are clear CT/CT cervical spine wo con IMPRESSION: NO CERVICAL SPINE FRACTURE Impression dictated by: Dereje Jalloh M.D. 04/21/2025 5:42 PM Dictation Location: [place] [address] Electronically authenticated by: [id number] Y Date: 04/21/2025 17:42
--- NOTE | 2025-04-21 17:25 | CT_ITS ---
The [address] [address] Patient Name: VASHTI MASSEY MRN: [id number] date: 1955 Sex: M Assigned Patient Location: ED.MAIN Current Patient Location: ER Accession/Order Number: [id number] Exam Date: 04/21/2025 17:34 Report Date: 04/21/2025 17:39 At the request of: CHANELL RAND MD Procedure: CT head/brain wo con CT BRAIN WITHOUT CONTRAST: CLINICAL HISTORY: Fall, hit head COMPARISON: 06/05/2024 TECHNIQUE: Contiguous axial unenhanced images were obtained through the brain. This CT exam was performed using one or more following dose reduction techniques: Automated exposure control, adjustment of the mA and/or kV according to patient size, or use of iterative reconstruction technique. FINDINGS: There is no evidence of midline shift, intra or extra-axial fluid collection, hemorrhage or CT evidence of acute large vascular distribution stroke. Right MCA encephalomalacia with mild ex vacuo dilatation right lateral ventricle. Encephalomalacia most pronounced within the right parietal and temporal lobe. Chronic small vessel ischemic disease Intracranial vascular calyces. Cataract surgery. Visualized paranasal sinuses are clear. The surrounding soft tissues are normal. CT/CT head/brain wo con IMPRESSION: NO ACUTE INTRACRANIAL ABNORMALITY. 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 Impression dictated by: Dereje Jalloh M.D. 04/21/2025 5:39 PM Dictation Location: [place] [address] Electronically authenticated by: [id number] Y Date: 04/21/2025 17:39
--- NOTE | 2025-04-21 17:35 | XR_ITS ---
The [address] [address] Patient Name: VASHTI MASSEY MRN: [id number] date: 1955 Sex: M Assigned Patient Location: ER Current Patient Location: ER Accession/Order Number: [id number] Exam Date: 04/21/2025 18:28 Report Date: 04/21/2025 18:30 At the request of: CHANELL RAND MD Procedure: XR chest 1V PA CHEST: CLINICAL HISTORY: fall COMPARISON: None FINDINGS: unremarkable cardiomediastinal silhouette. Lungs clear. No effusion or pneumothorax. Likely distal resection right clavicle. IMPRESSION: Negative acute pleural-parenchymal disease Impression dictated by: Dereje Jalloh M.D. 04/21/2025 6:30 PM Dictation Location: [place] [address] Electronically authenticated by: [id number] Y Date: 04/21/2025 18:30
--- NOTE | 2025-04-21 18:13 | XR_ITS ---
The [address] [address] Patient Name: VASHTI MASSEY MRN: [id number] date: 1955 Sex: M Assigned Patient Location: ER Current Patient Location: ER Accession/Order Number: [id number] Exam Date: 04/21/2025 18:31 Report Date: 04/21/2025 18:33 At the request of: CHANELL RAND MD Procedure: XR hip RT min 2V RIGHT HIP - 2 views: CLINICAL HISTORY: fall COMPARISON: None FINDINGS: No fracture or dislocation. Mild degenerative changes right hip. Mild enthesopathy identified along the trochanteric region. Moderate retained stool rectosigmoid junction. XR/XR hip RT min 2V IMPRESSION: Mild degenerative change. Negative acute osseous abnormality. Impression dictated by: Dereje Jalloh M.D. 04/21/2025 6:33 PM Dictation Location: [place] [address] Electronically authenticated by: [id number] Y Date: 04/21/2025 18:33
[2025-04-21] MEDS: ADACEL DIPH,PERTUSS(ACELL),TET VAC/PF 0.5 ML ADULT SYRINGE IM (18:18)
[2025-04-21 18:36] VITALS: BP 140/66; PULSE 67; O2SAT 96
[2025-04-21] MEDS: ACETAMINOPHEN 500 MG TABLET PO (18:36)
[2025-04-21] MEDS: BACITRACIN 0.9 GM PACKET 1 PACKET TOPICAL (18:43)
== END 2025-04-21 20:27 | disposition home or self-care (01) ==
PROVIDERS: Emergency Provider Emergency Medicine; PCP Internal Medicine
DX: S00.83XA Contusion of other part of head, initial encounter (principal); W06.XXXA Fall from bed, initial encounter; Z96.652 Presence of left artificial knee joint; Z87.891 Personal history of nicotine dependence; I69.354 Hemiplegia and hemiparesis following cerebral infarction affecting left non-dominant side; S00.81XA Abrasion of other part of head, initial encounter; Z23 Encounter for immunization
CPT/HCPCS: 70450; 71045; 72125; 73502; 90471; 90715; 99285

== ENCOUNTER 2025-05-30 19:28 | Emergency (ER) | payer MEDICARE, MEDICAID, SELFPAY ==
[2025-05-30] VITALS (27 sets, daily range): BP systolic 119–148; BP diastolic 62–69; PULSE 0–72; TEMP 37.3; O2SAT 93–96; BMI 27.3
--- NOTE | 2025-05-30 19:47 | ECG_ITS ---
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 Measurements Intervals [place] Rate: 63 P: 27 VA: 174 QRS: -16 QRSD: 94 T: 6 QT: 408 QTc: 416 Interpretive Statements 1100 Sinus rhythm 5222 Moderate voltage criteria for LVH, may be normal variant 8102 Low QRS voltage in chest leads 9130 borderline ECG Compared to ECG 10/01/2024 21:07:50 Low QRS voltage now present Electronically Signed On 06-01-2025 6:48:14 EDT by TIMOTHY CHAVES M.D.
--- NOTE | 2025-05-30 19:47 | XR_ITS ---
The [address] [address] Patient Name: VASHTI MASESY MRN: [id number] date: 1955 Sex: M Assigned Patient Location: ED.MAIN Current Patient Location: ED.MAIN Accession/Order Number: [id number] Exam Date: 05/30/2025 20:34 Report Date: 05/30/2025 20:35 At the request of: LEWIS RYENA Procedure: XR chest 1V PA CHEST: CLINICAL HISTORY: chest pain COMPARISON: 04/21/2025 Findings: Stable cardiomediastinal silhouette. Lungs are clear. No effusion or pneumothorax. Likely postsurgical changes right distal clavicle. XR/XR chest 1V IMPRESSION: Negative acute pleural-parenchymal disease. Impression dictated by: Dereje Jalloh M.D. 05/30/2025 8:35 PM Dictation Location: [place] [address] Electronically authenticated by: [id number] Y Date: 05/30/2025 20:35
--- NOTE | 2025-05-30 19:56 | ED.CHESTPAI1 ---
Documented by User: MARIBELL PRYOR 05/31/25 21:14 HPI - Chest Pain General Chief Complaint: Chest Pain Stated Complaint: WEAKNESS Time Seen by Provider: 05/30/25 19:35 Source: patient Mode of arrival: ambulance Limitations: no limitations History of Present Illness HPI narrative: Patient presents to the ED with a complaint of chest pain lateral rib area since this afternoon. He states he was just laying in bed when it started. He describes it as achy. It is nonradiating. Exertion does not change to the pain. He denies any shortness of breath. Patient denies any abdominal pain nausea vomiting or diarrhea. He states he does not have any history of heart attack or cardiac issues. He denies any recent injury or illness. 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 He is a resident at a nursing facility. He has been a resident there secondary to a stroke. MD complaint: Reports chest pain Onset (ago): hour(s) (5) Timing of current episode: Reports constant Prior episodes: No Onset: Reports during rest Pain location: Reports right chest and lateral Pain radiation: Reports none Severity: mild Related Data Home Medications ?Medication ?Instructions ?Recorded ?Confirmed aspirin 81 mg tablet,delayed 81 mg PO .QD 03/31/24 10/28/24 release Held on 10/29/24. Instructions: Resume on 10/31/24. flash glucose scanning reader 03/31/24 10/28/24 (FreeStyle Kathie 2 [place]) flash glucose sensor (FreeStyle 03/31/24 10/28/24 Kathie 2 Sensor kit) insulin glargine 100 unit/mL (3 15 unit subcut .QHS 03/31/24 10/28/24 mL) subcutaneous pen (Lantus Solostar U-100 Insulin) insulin syringe-needle U-100 1 mL 03/31/24 10/28/24 30 gauge x 7/16 atorvastatin 40 mg tablet 40 mg PO DAILY 06/05/24 10/28/24 gabapentin 100 mg capsule 100 mg PO TID 06/05/24 10/28/24 pantoprazole 40 mg tablet,delayed 40 mg PO .q24 06/05/24 10/28/24 release (Protonix) tamsulosin 0.4 mg capsule 0.4 mg PO .qhs 06/05/24 10/28/24 ticagrelor 90 mg tablet (Brilinta) 90 mg PO BID 06/05/24 10/28/24 Held on 10/29/24. Instructions: Resume on 10/31/24. trazodone 50 mg tablet 25 mg PO DAILY 06/05/24 10/28/24 insulin lispro 100 unit/mL 1 sliding scale dose subcut ACHS 09/29/24 10/28/24 subcutaneous pen (Admelog SoloStar U-100 Insulin lispro) magnesium hydroxide 400 mg/5 mL 5 ml PO .qhs PRN constipation 09/29/24 10/28/24 oral suspension (Dulcolax (magnesium hydroxide)) magnesium oxide 400 mg PO DAILY 09/29/24 10/28/24 metoprolol succinate 50 mg 50 mg PO QDAY 09/29/24 10/28/24 tablet,extended release 24 hr polyethylene glycol 3350 17 17 g PO DAILY 09/29/24 10/28/24 gram/dose oral powder (ClearLax) sennosides 8.6 mg tablet (Senna 17.2 mg PO DAILY 09/29/24 10/28/24 Lax) sennosides 8.6 mg-docusate sodium 1 tab-cap PO DAILY 09/29/24 10/28/24 50 mg tablet (Senna with Docusate Sodium) acetaminophen 1,000 mg PO TID PRN pain 10/28/24 10/28/24 finasteride 5 mg tablet 5 mg PO DAILY 10/28/24 10/28/24 Previous Rx's ?Medication ?Instructions ?Recorded levofloxacin 500 mg tablet 500 mg PO DAILY 7 days #7 tabs 10/29/24 Allergies Allergy/AdvReac Type Severity Reaction Status Date / Time No Known Drug Allergies Allergy Verified 05/30/25 19:36 [facility] Medical History Chronic indwelling Cyr catheter ?Z97.8 - Presence of other specified devices (ICD-10) H/O: stroke with residual effects ?I69.30 - Unspecified sequelae of cerebral infarction (ICD-10) CKD (chronic kidney disease) ?N18.9 - Chronic kidney disease, unspecified (ICD-10) CVA (cerebral vascular accident) ?I63.9 - Cerebral infarction, unspecified (ICD-10) Anxiety and depression ?F41.9 - Anxiety disorder, unspecified (ICD-10) ?F32.A - Depression, unspecified (ICD-10) Benign prostatic hyperplasia with lower urinary tract symptoms ?N40.1 - Benign prostatic hyperplasia with lower urinary tract symptoms (ICD-10) Hemiplegia affecting left nondominant side ?G81.94 - Hemiplegia, unspecified affecting left nondominant side (ICD-10) Hematoma ?T14.8XXA - Other injury of unspecified body region, initial encounter (ICD-10) Bursitis ?M71.9 - Bursopathy, unspecified (ICD-10) History of CVA (cerebrovascular accident) ?Z86.73 - Personal history of transient ischemic attack (TIA), and cerebral infarction without residual deficits (ICD-10) DM2 (diabetes mellitus, type 2) ?E11.9 - Type 2 diabetes mellitus without complications (ICD-10) Osteoarthritis ?M19.90 - Unspecified osteoarthritis, unspecified site (ICD-10) HTN (hypertension) ?I10 - Essential (primary) hypertension (ICD-10) Hyperlipidemia ?E78.5 - Hyperlipidemia, unspecified (ICD-10) Surgical History H/O repair of right rotator cuff ?Z98.890 - Other specified postprocedural states (ICD-10) History of total left knee replacement ?Z96.652 - Presence of left artificial knee joint (ICD-10) Family History Sister Family history of cancer Mother Family history of cancer Grandmother Family history of stroke Social History Within the past year, how often did you have a drink containing alcohol: never Score interpretation: A score less than 4 is consistent with normal alcohol consumption. Smoking status: Former smoker Non-prescribed substance use: denies use Highest level of school completed/degree received: high school graduate Little interest or pleasure in doing things: not at all Feeling down, depressed, or hopeless: not at all Exam Constitutional Vital Signs, click to edit/add: Last Vital Signs Temp 99.2 F 05/30/25 19:36 Pulse 56 L 05/30/25 23:40 Resp 14 05/30/25 23:40 BP 146/62 H 05/30/25 23:30 Pulse Ox 93 L 05/30/25 23:10 O2 Del Method Room Air 05/30/25 19:36 Course Vital Signs Vital signs: Vital Signs Temperature 99.2 F 05/30/25 19:36 Pulse Rate 66 05/30/25 19:36 Respiratory Rate 18 05/30/25 19:36 Blood Pressure 124/67 05/30/25 19:36 Pulse Oximetry 94 L 05/30/25 19:36 Oxygen Delivery Method Room Air 05/30/25 19:36 Temperature 99.2 F 05/30/25 19:36 Pulse Rate 56 L 05/30/25 23:40 Respiratory Rate 14 05/30/25 23:40 Blood Pressure 146/62 H 05/30/25 23:30 Pulse Oximetry 93 L 05/30/25 23:10 Oxygen Delivery Method Room Air 05/30/25 19:36 MDM - Chest Pain MDM Narrative Medical decision making narrative: Patient presents to the ED with a complaint of chest pain bilateral chest area since this afternoon. He states he was just laying in bed when it started. He describes it as achy. It is nonradiating. Exertion does not change to the pain. He denies any shortness of breath. Patient denies any abdominal pain nausea vomiting or diarrhea. He states he does not have any history of heart attack or cardiac issues. He denies any recent injury or illness. 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 He is a resident at a nursing facility. He has been a resident there secondary to a stroke. Patient is a poor historian but does come with paperwork from shelter. According to the patient's chart he does have a history of hypertension hyperlipidemia. There is no smoking history. He does have an indwelling Cyr catheter, he is hemiplegic from a CVA. Patient is alert and oriented resting in his bed. Heart rate is normal and no abnormal heart sounds on auscultation. Lungs are clear. No pedal edema. Patient is interactive and able to answer questions. His Cyr catheter does have light yellow urine output. He does not have a rash on the chest wall. No palpable tenderness. No recent falls although he has had multiple falls in the past that he has been seen for here at this ED. Differential Diagnosis Differential diagnosis: Likely fracture of rib, stable angina, unstable angina pectoris, atypical chest pain, st elevation myocardial infarction, costochondritis, chest pain and biliary colic Medical Records Data Attestation: I reviewed the patient's medical records. Lab Data Attestation: I reviewed the patient's lab results. Labs: Lab Results 05/30/25 05/30/25 Range/Units 18:50 21:32 WBC 3.8 L (4.0-11.0) 10^3/uL RBC 4.34 L (4.70-6.10) 10^6/uL Hgb 11.3 L (14.0-18.0) g/dL Hct 34.4 L (42.0-54.0) % MCV 79.3 L (80.0-94.0) fL MCH 26.0 (25.9-34.0) pg MCHC 32.8 (29.9-35.2) g/dL RDW 16.7 H (11.0-15.0) % Plt Count 220 (150-450) 10^3/uL MPV 8.9 L (9.5-13.5) fL Neut % (Auto) 50.4 (43.0-75.0) % Lymph % (Auto) 36.0 (20.5-60.0) % Desha % (Auto) 7.1 (1.7-12.0) % Eos % (Auto) 4.7 (0.9-7.0) % Baso % (Auto) 1.3 (0.2-2.0) % Neut # (Auto) 1.9 (1.4-6.5) 10^3/uL Lymph # (Auto) 1.4 (1.2-3.8) 10^3/uL Desha # (Auto) 0.3 (0.3-0.8) 10^3/uL Eos # (Auto) 0.2 (0.0-0.7) 10^3/uL Baso # (Auto) 0.1 (0.0-0.1) 10^3/uL Abs Immat Gran (auto) 0.02 (0.00-0.03) 10^3/uL Imm/Tot Granulo (auto) 0.5 (0.0-0.5) % PT 11.4 (9.0-11.6) sec INR 1.08 APTT 27.2 (22.3-36.2) sec Sodium 137 (136-145) mmol/L Potassium 4.1 (3.5-5.1) mmol/L Chloride 102 (98-107) mmol/L Carbon Dioxide 31.0 (21.0-32.0) mmol/L Anion Gap 8.1 BUN 25.0 H (7.0-18.0) mg/dL Creatinine 0.57 L (0.70-1.30) mg/dL Est GFR ( Amer) >60 (>=60 mL/min/1.73m^2) Est GFR (Non-Af Amer) >60 (>=60 mL/min/1.73m^2) BUN/Creatinine Ratio 43.9 Glucose 185 H (74-106) mg/dL Calcium 9.4 (8.5-10.1) mg/dL Total Bilirubin 0.4 (0.2-1.0) mg/dL Direct Bilirubin 0.1 (0.0-0.2) mg/dL AST 8 L (15-37) U/L ALT 19 (16-63) U/L Alkaline Phosphatase 100 (46-116) U/L Troponin I High Sens 5.2 5.0 (4.0-76.1) pg/mL NT-Pro-B Natriuret Pep 59.0 (<=900.0) pg/mL Total Protein 6.9 (6.4-8.2) g/dL Albumin 3.4 (3.4-5.0) g/dL Globulin 3.5 g/dL Albumin/Globulin Ratio 1.0 Lipase 29.0 (16.0-77.0) U/L Imaging Data Chest x-ray: Radiologist's impression: ITS Impressions Chest X-Ray 05/30/25 19:47 IMPRESSION: Negative acute pleural-parenchymal disease. Impression dictated by: Dereje Jalloh M.D. 05/30/2025 8:35 PM Dictation Location: [place] [address] Electronically authenticated by: [id number] Y Date: 05/30/2025 20:35 ECG Data Attestation: I personally reviewed and interpreted this ECG as follows: ECG interpretation date: 05/30/25 ECG interpretation time: 19:49 Prior ECG tracings: available for review Interpretation: Previous EKGs for September 2020 for shows no changes in today's. Patient rhythm reported circular rate of 63 bpm. TN interval 174. QRS 194. He has no ST depression or elevation. Pacemaker model: Prev Heart Score History: Moderately Suspicious ECG: Normal Age: >65 years Risk Factors: 1 or 2 Risk Factors Total Heart Score Recommendations & Risks:: 4 Discharge Plan Discharge Chief Complaint: Chest Pain Clinical Impression: Chest pain Patient Disposition: Home, Self-Care Time of Disposition Decision: 22:11 Condition: Good Mode of Transportation: EMS Prescriptions / Home Meds: No Action atorvastatin 40 mg tablet 40 mg PO DAILY Brilinta 90 mg tablet 90 mg PO BID gabapentin 100 mg capsule 100 mg PO TID pantoprazole [Protonix] 40 mg tablet,delayed release (DR/EC) 40 mg PO .q24 tamsulosin 0.4 mg capsule 0.4 mg PO .qhs trazodone 50 mg tablet 25 mg PO DAILY magnesium hydroxide [Dulcolax (magnesium hydroxide)] 400 mg/5 mL suspension 5 ml PO .qhs PRN (Reason: constipation) magnesium oxide 400 mg magnesium capsule 400 mg PO DAILY metoprolol succinate 50 mg tablet extended release 24 hr 50 mg PO QDAY polyethylene glycol 3350 [ClearLax] 17 gram/dose powder 17 g PO DAILY sennosides [Senna Lax] 8.6 mg tablet 17.2 mg PO DAILY sennosides-docusate sodium [Senna with Docusate Sodium] 8.6-50 mg tablet 1 tab-cap PO DAILY insulin lispro [Admelog SoloStar U-100 Insulin] 100 unit/mL insulin pen 1 sliding scale dose SUBCUT ACHS aspirin 81 mg tablet,delayed release (DR/EC) 81 mg PO .QD (DME) insulin syringe-needle U-100 1 mL 30 gauge X 7/16 syringe MISCELLANEOUS insulin glargine [Lantus Solostar U-100 Insulin] 100 unit/mL (3 mL) insulin pen 15 unit SUBCUT .QHS (DME) FreeStyle Kathie 2 Sensor Kit MISCELLANEOUS (DME) FreeStyle Kathie 2 [place] Misc MISCELLANEOUS finasteride 5 mg tablet 5 mg PO DAILY acetaminophen 500 mg tablet 1,000 mg PO TID PRN (Reason: pain) levofloxacin 500 mg tablet 500 mg PO DAILY 7 Days Qty: 7 0RF Print Language: Wallisian Instructions: Chest Wall Pain (ED) Referrals: Vinnie Garza DO [Primary Care Provider, Internal Medicine] - 1 week Discharge Date/Time: 05/31/25 00:01 Documented by User: Carson Clayton MD 05/30/25 22:36 HPI - Chest Pain General Chief Complaint: Chest Pain Stated Complaint: WEAKNESS Time Seen by Provider: 05/30/25 19:35 Related Data Home Medications ?Medication ?Instructions ?Recorded ?Confirmed aspirin 81 mg tablet,delayed 81 mg PO .QD 03/31/24 10/28/24 release Held on 10/29/24. Instructions: Resume on 10/31/24. flash glucose scanning reader 03/31/24 10/28/24 (FreeStyle Kathie 2 [place]) flash glucose sensor (FreeStyle 03/31/24 10/28/24 Kathie 2 Sensor kit) insulin glargine 100 unit/mL (3 15 unit subcut .QHS 03/31/24 10/28/24 mL) subcutaneous pen (Lantus Solostar U-100 Insulin) insulin syringe-needle U-100 1 mL 03/31/24 10/28/24 30 gauge x 7/16 atorvastatin 40 mg tablet 40 mg PO DAILY 06/05/24 10/28/24 gabapentin 100 mg capsule 100 mg PO TID 06/05/24 10/28/24 pantoprazole 40 mg tablet,delayed 40 mg PO .q24 06/05/24 10/28/24 release (Protonix) tamsulosin 0.4 mg capsule 0.4 mg PO .qhs 06/05/24 10/28/24 ticagrelor 90 mg tablet (Brilinta) 90 mg PO BID 06/05/24 10/28/24 Held on 10/29/24. Instructions: Resume on 10/31/24. trazodone 50 mg tablet 25 mg PO DAILY 06/05/24 10/28/24 insulin lispro 100 unit/mL 1 sliding scale dose subcut ACHS 12/04/24 01/02/25 subcutaneous pen (Admelog SoloStar U-100 Insulin lispro) magnesium hydroxide 400 mg/5 mL 5 ml PO .qhs PRN constipation 09/29/24 10/28/24 oral suspension (Dulcolax (magnesium hydroxide)) magnesium oxide 400 mg PO DAILY 09/29/24 10/28/24 metoprolol succinate 50 mg 50 mg PO QDAY 09/29/24 10/28/24 tablet,extended release 24 hr polyethylene glycol 3350 17 17 g PO DAILY 09/29/24 10/28/24 gram/dose oral powder (ClearLax) sennosides 8.6 mg tablet (Senna 17.2 mg PO DAILY 09/29/24 10/28/24 Lax) sennosides 8.6 mg-docusate sodium 1 tab-cap PO DAILY 09/29/24 10/28/24 50 mg tablet (Senna with Docusate Sodium) acetaminophen 1,000 mg PO TID PRN pain 10/28/24 10/28/24 finasteride 5 mg tablet 5 mg PO DAILY 10/28/24 10/28/24 Previous Rx's ?Medication ?Instructions ?Recorded levofloxacin 500 mg tablet 500 mg PO DAILY 7 days #7 tabs 10/29/24 Allergies Allergy/AdvReac Type Severity Reaction Status Date / Time No Known Drug Allergies Allergy Verified 05/30/25 19:36 [facility] Medical History Chronic indwelling Cyr catheter ?Z97.8 - Presence of other specified devices (ICD-10) H/O: stroke with residual effects ?I69.30 - Unspecified sequelae of cerebral infarction (ICD-10) CKD (chronic kidney disease) ?N18.9 - Chronic kidney disease, unspecified (ICD-10) CVA (cerebral vascular accident) ?I63.9 - Cerebral infarction, unspecified (ICD-10) Anxiety and depression ?F41.9 - Anxiety disorder, unspecified (ICD-10) ?F32.A - Depression, unspecified (ICD-10) Benign prostatic hyperplasia with lower urinary tract symptoms ?N40.1 - Benign prostatic hyperplasia with lower urinary tract symptoms (ICD-10) Hemiplegia affecting left nondominant side ?G81.94 - Hemiplegia, unspecified affecting left nondominant side (ICD-10) Hematoma ?T14.8XXA - Other injury of unspecified body region, initial encounter (ICD-10) Bursitis ?M71.9 - Bursopathy, unspecified (ICD-10) History of CVA (cerebrovascular accident) ?Z86.73 - Personal history of transient ischemic attack (TIA), and cerebral infarction without residual deficits (ICD-10) DM2 (diabetes mellitus, type 2) ?E11.9 - Type 2 diabetes mellitus without complications (ICD-10) Osteoarthritis ?M19.90 - Unspecified osteoarthritis, unspecified site (ICD-10) HTN (hypertension) ?I10 - Essential (primary) hypertension (ICD-10) Hyperlipidemia ?E78.5 - Hyperlipidemia, unspecified (ICD-10) Surgical History H/O repair of right rotator cuff ?Z98.890 - Other specified postprocedural states (ICD-10) History of total left knee replacement ?Z96.652 - Presence of left artificial knee joint (ICD-10) Family History Sister Family history of cancer Mother Family history of cancer Grandmother Family history of stroke Social History Within the past year, how often did you have a drink containing alcohol: never Score interpretation: A score less than 4 is consistent with normal alcohol consumption. Smoking status: Former smoker Non-prescribed substance use: denies use Highest level of school completed/degree received: high school graduate Little interest or pleasure in doing things: not at all Feeling down, depressed, or hopeless: not at all Exam Constitutional Vital Signs, click to edit/add: Last Vital Signs Temp 99.2 F 05/30/25 19:36 Pulse 56 L 05/30/25 23:40 Resp 14 05/30/25 23:40 BP 146/62 H 05/30/25 23:30 Pulse Ox 93 L 05/30/25 23:10 O2 Del Method Room Air 05/30/25 19:36 Course Vital Signs Vital signs: Vital Signs Temperature 99.2 F 05/30/25 19:36 Pulse Rate 66 05/30/25 19:36 Respiratory Rate 18 05/30/25 19:36 Blood Pressure 124/67 05/30/25 19:36 Pulse Oximetry 94 L 05/30/25 19:36 Oxygen Delivery Method Room Air 05/30/25 19:36 Temperature 99.2 F 05/30/25 19:36 Pulse Rate 56 L 05/30/25 23:40 Respiratory Rate 14 05/30/25 23:40 Blood Pressure 146/62 H 05/30/25 23:30 Pulse Oximetry 93 L 05/30/25 23:10 Oxygen Delivery Method Room Air 05/30/25 19:36 MDM - Chest Pain MDM Narrative Medical decision making narrative: Patient presents to the ED with a complaint of chest pain bilateral chest area since this afternoon. He states he was just laying in bed when it started. He describes it as achy. It is nonradiating. Exertion does not change to the pain. He denies any shortness of breath. Patient denies any abdominal pain nausea vomiting or diarrhea. He states he does not have any history of heart attack or cardiac issues. He denies any recent injury or illness. 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 He is a resident at a nursing facility. He has been a resident there secondary to a stroke. Patient is a poor historian but does come with paperwork from shelter. According to the patient's chart he does have a history of hypertension hyperlipidemia. There is no smoking history. He does have an indwelling Cyr catheter, he is hemiplegic from a CVA. Patient is alert and oriented resting in his bed. Heart rate is normal and no abnormal heart sounds on auscultation. Lungs are clear. No pedal edema. Patient is interactive and able to answer questions. His Cyr catheter does have light yellow urine output. He does not have a rash on the chest wall. No palpable tenderness. No recent falls although he has had multiple falls in the past that he has been seen for here at this ED. JK 10:20pm the patient's test results are all back and negative including repeat troponin. His pain seems to have gone away. Have no clinical suspicion of pulmonary embolism and he is released back to [facility]. Findings were discussed with the patient. Differential Diagnosis Differential diagnosis: Likely pneumothorax Lab Data Labs: Lab Results 05/30/25 05/30/25 Range/Units 18:50 21:32 WBC 3.8 L (4.0-11.0) 10^3/uL RBC 4.34 L (4.70-6.10) 10^6/uL Hgb 11.3 L (14.0-18.0) g/dL Hct 34.4 L (42.0-54.0) % MCV 79.3 L (80.0-94.0) fL MCH 26.0 (25.9-34.0) pg MCHC 32.8 (29.9-35.2) g/dL RDW 16.7 H (11.0-15.0) % Plt Count 220 (150-450) 10^3/uL MPV 8.9 L (9.5-13.5) fL Neut % (Auto) 50.4 (43.0-75.0) % Lymph % (Auto) 36.0 (20.5-60.0) % Desha % (Auto) 7.1 (1.7-12.0) % Eos % (Auto) 4.7 (0.9-7.0) % Baso % (Auto) 1.3 (0.2-2.0) % Neut # (Auto) 1.9 (1.4-6.5) 10^3/uL Lymph # (Auto) 1.4 (1.2-3.8) 10^3/uL Desha # (Auto) 0.3 (0.3-0.8) 10^3/uL Eos # (Auto) 0.2 (0.0-0.7) 10^3/uL Baso # (Auto) 0.1 (0.0-0.1) 10^3/uL Abs Immat Gran (auto) 0.02 (0.00-0.03) 10^3/uL Imm/Tot Granulo (auto) 0.5 (0.0-0.5) % PT 11.4 (9.0-11.6) sec INR 1.08 APTT 27.2 (22.3-36.2) sec Sodium 137 (136-145) mmol/L Potassium 4.1 (3.5-5.1) mmol/L Chloride 102 (98-107) mmol/L Carbon Dioxide 31.0 (21.0-32.0) mmol/L Anion Gap 8.1 BUN 25.0 H (7.0-18.0) mg/dL Creatinine 0.57 L (0.70-1.30) mg/dL Est GFR ( Amer) >60 (>=60 mL/min/1.73m^2) Est GFR (Non-Af Amer) >60 (>=60 mL/min/1.73m^2) BUN/Creatinine Ratio 43.9 Glucose 185 H (74-106) mg/dL Calcium 9.4 (8.5-10.1) mg/dL Total Bilirubin 0.4 (0.2-1.0) mg/dL Direct Bilirubin 0.1 (0.0-0.2) mg/dL AST 8 L (15-37) U/L ALT 19 (16-63) U/L Alkaline Phosphatase 100 (46-116) U/L Troponin I High Sens 5.2 5.0 (4.0-76.1) pg/mL NT-Pro-B Natriuret Pep 59.0 (<=900.0) pg/mL Total Protein 6.9 (6.4-8.2) g/dL Albumin 3.4 (3.4-5.0) g/dL Globulin 3.5 g/dL Albumin/Globulin Ratio 1.0 Lipase 29.0 (16.0-77.0) U/L Imaging Data Chest x-ray: Radiologist's impression: ITS Impressions Chest X-Ray 05/30/25 19:47 IMPRESSION: Negative acute pleural-parenchymal disease. Impression dictated by: Dereje Jalloh M.D. 05/30/2025 8:35 PM Dictation Location: [place] [address] Electronically authenticated by: [id number] Y Date: 05/30/2025 20:35 Heart Score Troponin: <Normal Limit Total Heart Score Recommendations & Risks:: 4 Discharge Plan Discharge Chief Complaint: Chest Pain Clinical Impression: Chest pain Patient Disposition: Home, Self-Care Time of Disposition Decision: 22:11 Condition: Good Mode of Transportation: EMS Prescriptions / Home Meds: No Action atorvastatin 40 mg tablet 40 mg PO DAILY Brilinta 90 mg tablet 90 mg PO BID gabapentin 100 mg capsule 100 mg PO TID pantoprazole [Protonix] 40 mg tablet,delayed release (DR/EC) 40 mg PO .q24 tamsulosin 0.4 mg capsule 0.4 mg PO .qhs trazodone 50 mg tablet 25 mg PO DAILY magnesium hydroxide [Dulcolax (magnesium hydroxide)] 400 mg/5 mL suspension 5 ml PO .qhs PRN (Reason: constipation) magnesium oxide 400 mg magnesium capsule 400 mg PO DAILY metoprolol succinate 50 mg tablet extended release 24 hr 50 mg PO QDAY polyethylene glycol 3350 [ClearLax] 17 gram/dose powder 17 g PO DAILY sennosides [Senna Lax] 8.6 mg tablet 17.2 mg PO DAILY sennosides-docusate sodium [Senna with Docusate Sodium] 8.6-50 mg tablet 1 tab-cap PO DAILY insulin lispro [Admelog SoloStar U-100 Insulin] 100 unit/mL insulin pen 1 sliding scale dose SUBCUT ACHS aspirin 81 mg tablet,delayed release (DR/EC) 81 mg PO .QD (DME) insulin syringe-needle U-100 1 mL 30 gauge X 7/16 syringe MISCELLANEOUS insulin glargine [Lantus Solostar U-100 Insulin] 100 unit/mL (3 mL) insulin pen 15 unit SUBCUT .QHS (DME) FreeStyle Kathie 2 Sensor Kit MISCELLANEOUS (DME) FreeStyle Kathie 2 [place] Misc MISCELLANEOUS finasteride 5 mg tablet 5 mg PO DAILY acetaminophen 500 mg tablet 1,000 mg PO TID PRN (Reason: pain) levofloxacin 500 mg tablet 500 mg PO DAILY 7 Days Qty: 7 0RF Print Language: Wallisian Instructions: Chest Wall Pain (ED) Referrals: Vinnie Garza DO [Primary Care Provider, Internal Medicine] - 1 week Discharge Date/Time: 05/31/25 00:01
[2025-05-30 19:58] LABS: Hematocrit 34.4 % (42.0-54.0); Hemoglobin 11.3 g/dL (14.0-18.0); Immature Granulocytes Abs Auto 0.02 10^3/uL (0.00-0.03); Immature Granulocytes Pct Auto 0.5 % (0.0-0.5); Lymphocytes Absolute Auto 1.4 10^3/uL (1.2-3.8); Mean Corpuscular HGB Conc 32.8 g/dL (29.9-35.2); Mean Corpuscular Hemoglobin 26.0 pg (25.9-34.0); Mean Corpuscular Volume 79.3 fL (80.0-94.0); Platelet Count 220 10^3/uL (150-450); Red Blood Count 4.34 10^6/uL (4.70-6.10); White Blood Count 3.8 10^3/uL (4.0-11.0)
[2025-05-30 20:18] LABS: INR 1.08; Partial Thromboplastin Time 27.2 sec (22.3-36.2); Prothrombin Time 11.4 sec (9.0-11.6)
[2025-05-30 20:19] LABS: Anion Gap 8.1; Blood Urea Nitrogen 25.0 mg/dL (7.0-18.0); Calcium 9.4 mg/dL (8.5-10.1); Carbon Dioxide 31.0 mmol/L (21.0-32.0); Chloride 102 mmol/L (98-107); Estimated GFR (African America >60 (>=60 mL/min/1.73m^2); Estimated GFR (Non-African Ame >60 (>=60 mL/min/1.73m^2); Glucose 185 mg/dL (74-106); NT Pro B Type Natriuretic Pept 59.0 pg/mL (<=900.0); Potassium 4.1 mmol/L (3.5-5.1); Sodium 137 mmol/L (136-145)
[2025-05-30] MEDS: MORPHINE SULFATE 2 MG/ML SYRINGE IV (21:19)
[2025-05-30 22:01] LABS: Alanine Aminotransferase 19 U/L (16-63); Alkaline Phosphatase 100 U/L (46-116); Aspartate Amino Transferase 8 U/L (15-37)
[2025-05-30 22:02] LABS: Albumin Globulin Ratio 1.0; Albumin Level 3.4 g/dL (3.4-5.0); Globulin 3.5 g/dL; Lipase 29.0 U/L (16.0-77.0); Total Protein 6.9 g/dL (6.4-8.2)
== END 2025-05-31 00:01 | disposition home or self-care (01) ==
PROVIDERS: Physician Assistant; Emergency Provider Emergency Medicine; PCP Internal Medicine
DX: R07.9 Chest pain, unspecified (principal); Z66 Do not resuscitate; Z96.652 Presence of left artificial knee joint; Z87.891 Personal history of nicotine dependence; I10 Essential (primary) hypertension; E78.5 Hyperlipidemia, unspecified; I69.959 Hemiplegia and hemiparesis following unspecified cerebrovascular disease affecting unspecified side
CPT/HCPCS: 36415; 71045; 80048; 80076; 83690; 83880; 84484; 85025; 85610; 85730; 93005; 96374; 99285; J2270

== ENCOUNTER 2025-06-12 21:58 | Emergency (ER) | payer MEDICARE, MEDICAID, SELFPAY ==
[2025-06-12] VITALS (10 sets, daily range): BP systolic 158; BP diastolic 70; PULSE 0–55; TEMP 36.9; O2SAT 94–98; BMI 27.0
--- NOTE | 2025-06-12 22:09 | ED.CHESTPAI1 ---
HPI - Chest Pain General Chief Complaint: Chest Pain Stated Complaint: CHEST PAIN Time Seen by Provider: 06/12/25 22:01 Source: patient Mode of arrival: ambulance Limitations: no limitations History of Present Illness HPI narrative: This 69-year-old male who is in a local correction after having several strokes and has left-sided hemiparesis is brought to the emergency department for evaluation of chest pain. The patient states he had chest pain earlier in the day. He is not having any chest pain at this time. The patient states he feels fine. He does not recall where his chest hurt. He does not have any back pain. No shortness of breath. He has no abdominal pain. He has no lower extremity pain or swelling. Related Data Home Medications ?Medication ?Instructions ?Recorded ?Confirmed aspirin 81 mg tablet,delayed 81 mg PO .QD 03/31/24 10/28/24 release Held on 10/29/24. Instructions: Resume on 10/31/24. flash glucose scanning reader 03/31/24 10/28/24 (FreeStyle Kathie 2 Roby) flash glucose sensor (FreeStyle 03/31/24 10/28/24 Kathie 2 Sensor kit) insulin glargine 100 unit/mL (3 15 unit subcut .QHS 03/31/24 10/28/24 mL) subcutaneous pen (Lantus Solostar U-100 Insulin) insulin syringe-needle U-100 1 mL 03/31/24 10/28/24 30 gauge x 7/16 atorvastatin 40 mg tablet 40 mg PO DAILY 06/05/24 10/28/24 gabapentin 100 mg capsule 100 mg PO TID 06/05/24 10/28/24 pantoprazole 40 mg tablet,delayed 40 mg PO .q24 06/05/24 10/28/24 release (Protonix) tamsulosin 0.4 mg capsule 0.4 mg PO .qhs 06/05/24 10/28/24 ticagrelor 90 mg tablet (Brilinta) 90 mg PO BID 06/05/24 10/28/24 Held on 10/29/24. Instructions: Resume on 10/31/24. trazodone 50 mg tablet 25 mg PO DAILY 06/05/24 10/28/24 insulin lispro 100 unit/mL 1 sliding scale dose subcut ACHS 09/29/24 10/28/24 subcutaneous pen (Admelog SoloStar U-100 Insulin lispro) magnesium hydroxide 400 mg/5 mL 5 ml PO .qhs PRN constipation 09/29/24 10/28/24 oral suspension (Dulcolax (magnesium hydroxide)) magnesium oxide 400 mg PO DAILY 09/29/24 10/28/24 metoprolol succinate 50 mg 50 mg PO QDAY 09/29/24 10/28/24 tablet,extended release 24 hr polyethylene glycol 3350 17 17 g PO DAILY 09/29/24 10/28/24 gram/dose oral powder (ClearLax) sennosides 8.6 mg tablet (Senna 17.2 mg PO DAILY 09/29/24 10/28/24 Lax) sennosides 8.6 mg-docusate sodium 1 tab-cap PO DAILY 09/29/24 10/28/24 50 mg tablet (Senna with Docusate Sodium) acetaminophen 1,000 mg PO TID PRN pain 10/28/24 10/28/24 finasteride 5 mg tablet 5 mg PO DAILY 10/28/24 10/28/24 Previous Rx's ?Medication ?Instructions ?Recorded levofloxacin 500 mg tablet 500 mg PO DAILY 7 days #7 tabs 10/29/24 Allergies Allergy/AdvReac Type Severity Reaction Status Date / Time No Known Drug Allergies Allergy Verified 06/12/25 22:04 Review of Systems ROS Status of ROS 10 or more systems reviewed and unremarkable except as noted in history and below [facility] Medical History Chronic indwelling Cyr catheter ?Z97.8 - Presence of other specified devices (ICD-10) H/O: stroke with residual effects ?I69.30 - Unspecified sequelae of cerebral infarction (ICD-10) CKD (chronic kidney disease) ?N18.9 - Chronic kidney disease, unspecified (ICD-10) CVA (cerebral vascular accident) ?I63.9 - Cerebral infarction, unspecified (ICD-10) Anxiety and depression ?F41.9 - Anxiety disorder, unspecified (ICD-10) ?F32.A - Depression, unspecified (ICD-10) Benign prostatic hyperplasia with lower urinary tract symptoms ?N40.1 - Benign prostatic hyperplasia with lower urinary tract symptoms (ICD-10) Hemiplegia affecting left nondominant side ?G81.94 - Hemiplegia, unspecified affecting left nondominant side (ICD-10) Hematoma ?T14.8XXA - Other injury of unspecified body region, initial encounter (ICD-10) Bursitis ?M71.9 - Bursopathy, unspecified (ICD-10) History of CVA (cerebrovascular accident) ?Z86.73 - Personal history of transient ischemic attack (TIA), and cerebral infarction without residual deficits (ICD-10) DM2 (diabetes mellitus, type 2) ?E11.9 - Type 2 diabetes mellitus without complications (ICD-10) Osteoarthritis ?M19.90 - Unspecified osteoarthritis, unspecified site (ICD-10) HTN (hypertension) ?I10 - Essential (primary) hypertension (ICD-10) Hyperlipidemia ?E78.5 - Hyperlipidemia, unspecified (ICD-10) Surgical History H/O repair of right rotator cuff ?Z98.890 - Other specified postprocedural states (ICD-10) History of total left knee replacement ?Z96.652 - Presence of left artificial knee joint (ICD-10) Family History Sister Family history of cancer Mother Family history of cancer Grandmother Family history of stroke Social History Within the past year, how often did you have a drink containing alcohol: never Score interpretation: A score less than 4 is consistent with normal alcohol consumption. Smoking status: Former smoker Non-prescribed substance use: denies use Highest level of school completed/degree received: high school graduate Little interest or pleasure in doing things: not at all Feeling down, depressed, or hopeless: not at all Exam Narrative Exam Narrative: Vital signs and Nursing Notes reviewed: Patient is afebrile, he is mildly bradycardic with a pulse of 55, blood pressure is elevated at 158/70, he is not hypoxic with pulse ox of 96% on room air General: Awake, alert, oriented, no acute distress, lying comfortably on the stretcher HEENT: Normocephalic atraumatic, mucous membranes are moist and pink, eyes are clear, normal conjunctiva, vision is grossly intact, posterior pharynx is normal in appearance. Neck: Supple, no meningeal signs, no JVD Chest: Lungs are clear to auscultation with good air entry, there is no wheezing rhonchi or rales appreciated no accessory muscle use, patient is speaking in complete sentences-no chest wall tenderness to palpation CVS: Regular rate and rhythm S1-S2, no murmurs rubs or gallops, pulses are brisk and equal bilaterally ABD: Soft, nondistended, nontender, no rebound guarding or rigidity, bowel sounds are normal, no pulsatile masses appreciated Extremities: Left-sided deficit status post stroke, mild contraction of the left hand. Skin: Normal in appearance without rash,pallor, petechiae or purpura Neuro: Left-sided hemiparesis status post CVA otherwise normal neuroexam Constitutional Vital Signs, click to edit/add: Last Vital Signs Temp 98.4 F 06/12/25 21:59 Pulse 55 L 06/12/25 21:59 Resp 06/12/25 21:59 BP 158/70 H 06/12/25 21:59 Pulse Ox 96 06/12/25 21:59 O2 Del Method Room Air 06/12/25 21:59 Course Vital Signs Vital signs: Vital Signs Temperature 98.4 F 06/12/25 21:59 Pulse Rate 55 L 06/12/25 21:59 Respiratory Rate 06/12/25 21:59 Blood Pressure 158/70 H 06/12/25 21:59 Pulse Oximetry 96 06/12/25 21:59 Oxygen Delivery Method Room Air 06/12/25 21:59 Temperature 98.4 F 06/12/25 21:59 Pulse Rate 55 L 06/12/25 21:59 Respiratory Rate 06/12/25 21:59 Blood Pressure 158/70 H 06/12/25 21:59 Pulse Oximetry 96 06/12/25 21:59 Oxygen Delivery Method Room Air 06/12/25 21:59 MDM - Chest Pain MDM Narrative Medical decision making narrative: This 69-year-old male who was seen here recently for chest pain is return to the emergency department for evaluation of chest pain. According to the [facility] where he currently resides he was complaining of chest pain earlier in the day. Upon arrival to this emergency department he denied any chest pain. He was awake alert oriented. He is at his baseline after having a stroke with left-sided hemiparesis. EKG done upon arrival is a sinus rhythm at 52 bpm. No acute findings were noted. Cardiac workup was ordered including CBC with differential, BMP and troponin. He has a normal white count and stable hemoglobin at 11.6. Troponin is normal at 4.8. Electrolytes are normal with a mildly elevated glucose at 225. 1 view chest x-ray shows mildly enlarged heart size with hypoinflated lungs with no pleural effusion or pneumothorax and no fracture or foreign body. He has remained on the field specialist in the emergency department without any arrhythmia or ectopy noted. He has not had any complaints of chest pain while here for several hours. He will be discharged back to the extended care facility where he currently resides for further evaluation and treatment. Lab Data Labs: Lab Results 06/12/25 Range/Units 22:10 WBC 4.3 (4.0-11.0) 10^3/uL RBC 4.42 L (4.70-6.10) 10^6/uL Hgb 11.6 L (14.0-18.0) g/dL Hct 35.7 L (42.0-54.0) % MCV 80.8 (80.0-94.0) fL MCH 26.2 (25.9-34.0) pg MCHC 32.5 (29.9-35.2) g/dL RDW 15.9 H (11.0-15.0) % Plt Count 271 (150-450) 10^3/uL MPV 9.3 L (9.5-13.5) fL Neut % (Auto) 48.1 (43.0-75.0) % Lymph % (Auto) 36.7 (20.5-60.0) % [place] % (Auto) 8.3 (1.7-12.0) % Eos % (Auto) 5.8 (0.9-7.0) % Baso % (Auto) 0.9 (0.2-2.0) % Neut # (Auto) 2.1 (1.4-6.5) 10^3/uL Lymph # (Auto) 1.6 (1.2-3.8) 10^3/uL [place] # (Auto) 0.4 (0.3-0.8) 10^3/uL Eos # (Auto) 0.3 (0.0-0.7) 10^3/uL Baso # (Auto) 0.0 (0.0-0.1) 10^3/uL Abs Immat Gran (auto) 0.01 (0.00-0.03) 10^3/uL Imm/Tot Granulo (auto) 0.2 (0.0-0.5) % Sodium 137 (136-145) mmol/L Potassium 4.1 (3.5-5.1) mmol/L Chloride 103 (98-107) mmol/L Carbon Dioxide 33.7 H (21.0-32.0) mmol/L Anion Gap 4.4 BUN 20.0 H (7.0-18.0) mg/dL Creatinine 0.60 L (0.70-1.30) mg/dL Est GFR ( Amer) >60 (>=60 mL/min/1.73m^2) Est GFR (Non-Af Amer) >60 (>=60 mL/min/1.73m^2) BUN/Creatinine Ratio 33.3 Glucose 225 H (74-106) mg/dL Calcium 8.8 (8.5-10.1) mg/dL Troponin I High Sens 4.8 (4.0-76.1) pg/mL Discharge Plan Discharge Chief Complaint: Chest Pain Clinical Impression: Atypical chest pain Patient Disposition: Home, Self-Care Time of Disposition Decision: 23:38 Condition: Good Prescriptions / Home Meds: No Action atorvastatin 40 mg tablet 40 mg PO DAILY Brilinta 90 mg tablet 90 mg PO BID gabapentin 100 mg capsule 100 mg PO TID pantoprazole [Protonix] 40 mg tablet,delayed release (DR/EC) 40 mg PO .q24 tamsulosin 0.4 mg capsule 0.4 mg PO .qhs trazodone 50 mg tablet 25 mg PO DAILY magnesium hydroxide [Dulcolax (magnesium hydroxide)] 400 mg/5 mL suspension 5 ml PO .qhs PRN (Reason: constipation) magnesium oxide 400 mg magnesium capsule 400 mg PO DAILY metoprolol succinate 50 mg tablet extended release 24 hr 50 mg PO QDAY polyethylene glycol 3350 [ClearLax] 17 gram/dose powder 17 g PO DAILY sennosides [Senna Lax] 8.6 mg tablet 17.2 mg PO DAILY sennosides-docusate sodium [Senna with Docusate Sodium] 8.6-50 mg tablet 1 tab-cap PO DAILY insulin lispro [Admelog SoloStar U-100 Insulin] 100 unit/mL insulin pen 1 sliding scale dose SUBCUT ACHS aspirin 81 mg tablet,delayed release (DR/EC) 81 mg PO .QD (DME) insulin syringe-needle U-100 1 mL 30 gauge X 7/16 syringe MISCELLANEOUS insulin glargine [Lantus Solostar U-100 Insulin] 100 unit/mL (3 mL) insulin pen 15 unit SUBCUT .QHS (DME) FreeStyle Kathie 2 Sensor Kit MISCELLANEOUS (DME) FreeStyle Kathie 2 Roby Misc MISCELLANEOUS finasteride 5 mg tablet 5 mg PO DAILY acetaminophen 500 mg tablet 1,000 mg PO TID PRN (Reason: pain) levofloxacin 500 mg tablet 500 mg PO DAILY 7 Days Qty: 7 0RF Print Language: Cambodian Instructions: Noncardiac Chest Pain (ED) Referrals: Vinnie Garza DO [Primary Care Provider, Internal Medicine] - 1 week
--- NOTE | 2025-06-12 22:18 | ECG_ITS ---
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 Measurements Intervals [place] Rate: 52 P: 20 SC: 190 QRS: -20 QRSD: 94 T: 35 QT: 448 QTc: 427 Interpretive Statements 1100 Sinus rhythm 9110 normal ECG Compared to ECG 05/30/2025 19:44:02 Left ventricular hypertrophy no longer present Electronically Signed On 06-13-2025 17:46:56 EDT by TIMOTHY CHAVES M.D.
--- OUTSIDE RECORDS SUMMARY | 2025-06-12 22:18 | XMS_ITS | CCD ---
Author Organization [facility] Care Team Providers Care [employer] Well Services Superintendent Name Role Phone MUKESH, DR BUSH Primary Care Unavailable BALL, DR BUSH Attending Unavailable BALL, DR BUSH Admitting Unavailable BALL, DR BUSH Primary Care Unavailable BALL, DR BUSH Attending Unavailable MUKESH, DR BUSH Admitting Unavailable Eleazar Mayorga Unavailable JASON RODRIGUEZ Attending Unavailable SARAH BARRETT Attending Unavailable ELEAZAR MAYORGA Primary Care Unavailable INPATIENT, TELENEUROLOGY Consulting Unavail able ABEBE ROLLINS Admitting Unavailab KLAUS Boyd Referring Unavailable ELEAZAR MAYORGA Primary Care Unavailable SARAH BARRETT Attending Unavailable SARAH BARRETT Referring Unavailable ELEAZAR MAYORGA Primary Care Unavailable HAMMAD PATEL Attending Unavailable HAMMAD PATEL Referring Unavailable ELEAZAR MAYORGA Primary Care Unavailable KONG GALLEGOS Attending Unavailable KONG GALLEGOS Referring Unavailable MUKESH, ELEAZAR Graham Primary Care Unavailable KONG GALLEGOS Attending Unavailable KONG GALLEGOS Referring Unavailable ELEAZAR MAYORGA Primary Care Unavailable KLAUS YEBOAH Referring Unavailable ELEAZAR MAYORGA Primary Care Unavailable MUKESH, ELEAZAR Graham Primary Care Unavailable YUDELKA MCMULLEN Attending Unavailable RAJESH RICE Consulting Unavailable EMILIA HIDALGO Admitting Unavailable YUDELKA LICEA Consulting Unavailable YUDELKA MCMULLEN Attending Unavailable YUDELKA MCMULLEN Referring Unavailable MUKESH, ELEAZAR Graham Primary Care Unavailable YUDELKA MCMULLEN Attending Unavailable YUDELKA MCMULLEN Referring Unavailable BALL, ELEAZAR Graham Primary Care Unavailable BALL, ELEAZAR Graham Primary Care Unavailable GOLIVERBROOK Attending Unavailable GOLIVER, BROOK Mcdonald Attending Unavailable GOLIVER, BROOK Mcdonald Referring Unavailable BALL, ELEAZAR Graham Primary Care Unavailable BALL, ELEAZAR Graham Primary Care Unavailable MOUNIKA MENDOZA Attending Unavailable NEO EASTON Admitting Unavailable ELEAZAR MAYORGA Referring Unavailable MUKESH, ELEAZAR Graham Primary Care Unavailable KLAUS YEBOAH Attending Unavailable BALL, ELEAZAR E Referring Unavailable BALL, ELEAZAR E Primary Care Unavailable VOVOS, KLAUS J Referring Unavailable BALL, ELEAZAR E Primary Care Unavailable VOVOS, KLAUS J Attending Unavailable VOVOS, KLAUS J Referring Unavailable BALL, ELEAZAR E Primary Care Unavailable BALL, ELEAZAR E Referring Unavailable BALL, ELEAZAR E Primary Care Unavailable BALL, ELEAZAR E Referring Unavailable BALL, ELEAZAR E Primary Care Unavailable CRYSTAL, EHAD Attending Unavailable BALL, ELEAZAR E Referring Unavailable BALL, ELEAZAR E Primary Care Unavailable AYDEE, RAJESH F Admitting Unavailable AYDEE, RAJESH F Attending Unavailable HIDALGO, EMILIA U Referring Unavailable BALL, ELEAZAR E Primary Care Unavailable TTH ONLY, [facility] Consulting Unavailable KONG GALLEGOS Referring Unavailable BALL, ELEAZAR E Primary Care Unavailable BALL, ELEAZAR E Referring Unavailable BALL, ELEAZAR E Primary Care Unavailable BALL, ELEAZAR E Referring Unavailable BALL, ELEAZAR E Primary Care Unavailable BALL, ELEAZAR E Primary Care Unavailable SARAH READ Admitting Unavailable RORO, SARAH Urban Attending Unavailable ISAI CEDILLO Consulting Unavailable PATRIA SOLOMON Referring Unavailable BALL, ELEAZAR E Primary Care Unavailable SARAH READ Referring Unavailable BALL, ELEAZAR E Primary Care Unavailable Unavailable Primary Care Provider Unavailjose Mayorga MD, Eleazar Graham Primary Care Provider ELEAZAR MAYORGA Primary Care Physician Eleazar Mayorga DO Primary Care Provider Arturo TOWNSEND, Tori [place] Emergency Provider Ridge TOWNSEND, Juany Admit Provider [phone] Harry TOWNSEND, Mauro Other Provider Maria Luisa MAJOR GIFTS DIRECTOR-C, Alma Other Provider Unavailable Nadia Youngblood MD Other Provider Sharmaine Jimenez MD Other Provider Dionte Rizvi MD Other Provider [phone] Addy Portillo MD Other Provider [phone] Ester Carlos MD Other Provider Dilip TOWNSEND, Luis Mcdonald Other Provider [phone] Dionte Pereira MD Other Provider [phone] Kong Davidson MD Other Provider Sejal TOWNSEND, Jarocho Other Provider Abel MAJOR GIFTS DIRECTOR-C, Yamila Lopez Other Provider Elias THREAD DRESSER-BC, Donna Other Provider [phone] Giulia ESTRADA, Gerard Lopez Other Provider [phone] Ricardo Ortega MD Other Provider Lisset Wilson Other Provider Unavailable Markie PhD, Clayton Other Provider Cristel DO, Skylar Other Provider Howard TOWNSEND, Eduar Other Provider [phone] Riri DO, Kong Barry Other Provider Maria Alejandra DO, Collin M Other Provider Shanice Adames APRN Other Provider Sanchez MAJOR GIFTS DIRECTOR-C, Crystal Trujillo Other Provider Vincenzo CLIENT SUPPORT ADMINISTRATOR-THREAD DRESSER-C, Alexandra Graham Other Provider Bryson Chavez MD Attending Provider Brayan Farmer MD Attending Provider GRICELDA PEREA Admitting Unavailable GRICELDA PEREA Attending Unavailable KONG DAVIDSON Consulting Unavailable LANG, SARAH Attending Unavailable SUELLEN COOPER Attending Unavailable LANG, SARAH Referring Unavailable Eleazar Mayorga DO Primary Care Provider Eleazar Mayorga DO E Primary Care Provider Mukesh ESTRADA, Eleazar E Primary Care Provider Unavailable Primary Care Provider UnavailTIMOTHY Terrell Attending Unavailable DEBBIE ZUÑIGA Attending Unavailable DEBBIE ZUÑIGA Attending Unavailable Brayan Farmer Admitting Unavailable Brayan Farmer Attending Unavailable Mauro Mcdonald Consulting Unavailable Semaskiene, Juany Admitting Unavailable Eleazar Mayorga Primary Care Unavailable Bryson Chavez Attending Unavailable Alma Glass Consulting Unavailable Nadia Youngblood Consulting Unavailable BakSharmaine gonzalez Consulting Unavailable Dionte Rizvi Consulting Unavailable Addy Portillo Consulting Unavailable Ester Carlos Consulting Unavailable Luis Cherry Consulting Unavailable Dionte Pereira Consulting Unavailable Kong Davidson Consulting Unavailable Nkmaria fernanda-Jarocho Cobb Consulting Unavail able Yamila Roman Consulting Unavailable Donna Griffin Consulting Unavailable Gerard Platt II Consulting Unavaila Ricardo Santana Consulting Unavailable SciaraLisset lujan Consulting Unavailable Clayton Aden Consulting Unavailable Skylar Fam Consulting Unavailable [place] Eduar Consulting Unavailable Kong Menezes Consulting Unavailab Collin Selby Consulting Unavailable Shanice Adames Consulting Unavailable Crystal Bradford Consulting Unavailable Alexandra Loya Consulting Unavailable MD JAROCHO POST Attending Unav ailable MD JAROCHO POST Referring Unav ailable MD JAROCHO POST Attending Unav ailable MD JAROCHO POST Attending Unav ailable MD JAROCHO POST Attending Unav ailable Isai Mehta Attending Unavailable MD JAROCHO POST Attending Unav ailable MD JAROCHO POST Attending Unav ailable Addy PORTILLO Attending Unavailable Addy PORTILLO Referring Unavailable Dionte Pereira Attending Unavailable Dionte Pereira Referring Unavailable Dionte COKER Admitting Unavailable Dionte COKER Attending Unavailable Eduar Lawrence Consulting Unavailable MD Eduar Lawrence Consulting Unavailable [place] Eduar Consulting Unavailable [place] Eduar Consulting Unavailable [place] Eduar Consulting Unavailable [place] Eduar Consulting Unavailable [place] Eduar Consulting Unavailable [place] Eduar Consulting Unavailable [place] Eduar Consulting Unavailable [place] Eduar Consulting Unavailable Dionte COKER Admitting Unavailable Dionte COKER Attending Unavailable [place] Eduar Consulting Unavailable [place] Eduar Consulting Unavailable [place] Eduar Consulting Unavailable [place] Eduar Consulting Unavailable [place] Eduar Consulting Unavailable Eduar Lawrence Consulting Unavailable Eduar Lawrence Consulting Unavailable Eduar Lawrence Consulting Unavailable Eduar Lawrence Consulting Unavailable Wandy WOODRUFF Attending Unavailable Hospitalist Post Disch, Results Reviewer Consult ing Unavailable MD Eduar Lawrence Consulting Unavailable MD JAROCHO POST Attending Ani ailable Allergies Allergy Classification Reported Allergen(s) Allergy Type Date of Onset Reaction(s) Facility (6 sources) No Known Medication Allergies; 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: [No Known Medication Allergies] Propensity to adverse reactions (disorder) [facility] Repository Medications Current Medications Medication Drug Class(es) Dates Sig (Normalized) Sig (Original) acetaminophen 325 mg / HYDROcodone bitartrate 5 mg oral tablet (1 source) Opioid Agonist Start: 04-10-2024 take 1 tablet by mouth every four hours as needed for pain 1 tablet, oral, Every 4 hours PRN, moderate pain - pain scale 4-6, Starting on Fri04/10/24 at 0033, Look-alike/sound -alike medication - verify indication for use. aluminum hydroxide 40 mg/ml / magnesium hydroxide 40 mg/ml / simethicone 4 mg/ml oral suspension (1 source) Start: 04-09-2024 take 30 mL by mouth four times daily at bedtime as needed 30 mL, oral, 4 times daily after meals and at bedtime as needed, dyspepsia, Starting on Fri04/09/24 at 1348, Look-alike/sound -alike medication - verify indication for use. Carlos pike., Indications: dyspepsia aspirin 81 mg oral capsule (20 sources) Platelet Aggregation Inhibitor, Nonsteroidal Anti-inflammatory Drug Start: 10-25-2024 take 1 mg by mouth every twenty-four hours aspirin 81 mg oral capsule mg cap(s), Oral, q24hr, Refills(s) 0 Start Date: 10/25/24 Status: Ordered Repeat number: 1 Start: 06-12-2024 take 1 tablet by piyush th in the morning aspirin 81 mg Take 1 tablet (81 mg total) by mouth in the morning. 30 tablet 1 06/12/2024 Active Start: 10-30-2023 End: 04-09-2024 take 81 mg by mouth once 81 mg, oral, Once, On Fri at 0855, For 1 dose, Do not crush or chew. bisacodyl 10 mg rectal suppository (3 sources) Stimulant Laxative Start: 04-25-2025 take 10 mg rectal route once daily as needed for constipation Dulcolax 10 mg Supp 10 mg = 1 supp, Rectal, Daily, PRN for constipation, PRN, # 10 supp, Refills(s) 0 Start Date: 04/25/25 Status: Ordered Quantity: 10.0 Unit: supp Repeat number: 1 Start: 10-02-2024 take 1 dose by mouth every mario r 10 mg, oral, Daily, First dose on 10/02/24 at 0900, Do not give within 1 hour of antacids, milk, or dairy products. Do not crush, chew, or split. 12 hr buPROPion hydrochloride 150 mg extended release oral tablet (2 sources) Aminoketone Start: 05-09-2025 take 1 mg by mouth twice daily buPROPion 150 mg ER Tab mg tab(s), Oral, BID, Refills(s) 0 Start Date: 05/09/25 Status: Ordered Repeat number: 1 Start: 04-15-2025 take 1 tablet by piyush th once daily buPROPion 150 mg ER Tab 150 mg = 1 tab(s), Oral, Daily Start Date: 04/15/25 Status: Ordered Repeat number: 1 100 ml calcium gluconate 20 mg/ml injection (1 source) Start: 04-09-2024 take 4-4.3 mg intravenously every hour as needed 2,000 mg, intravenous, at 50 mL/hr, Administer over 2 Hours, As needed, ionized calcium 4 to 4.3 mg/dL, Starting on Fri04/09/24 at 1348, IV Administration of calcium via a central or deep vein preferred. Avoid administration in small hand veins VESICANT (RED) calcium gluconate 3,000 mg in sodium chloride 0.9 % 100 mL IVPB (1 source) Start: 04-09-2024 take 3.5-3.9 mg intravenously every hour as needed 3,000 mg, intravenous, at 43.3 mL/hr, Administer over 3 Hours, As needed, ionized calcium 3.5 to 3.9 mg/dL, Starting on Fri04/09/24 at 1348, IV Administration of calcium via a central or deep vein preferred. Avoid administration in small hand veins VESICANT (RED) calcium gluconate 4,000 mg in sodium chloride 0.9 % 250 mL IVPB (1 source) Start: 04-09-2024 take 3.4 mg intravenously every hour as needed 4,000 mg, intravenous, at 72.5 mL/hr, Administer over 4 Hours, As needed, ionized calcium 3.4 mg/dL or less, Starting on Fri04/09/24 at 1348, IV administration of calcium via a central or deep vein is preferred. Avoid administration in small hand veins. VESICANT (RED) cefuroxime 500 mg oral tablet (4 sources) Cephalosporin Antibacterial Start: 09-30-2024 End: 10-06-2024 cefuroxime 500 mg oral tablet Oral, 0 Refill(s), Refills(s) 0 Start Date: 09/30/24 Status: Ordered Repeat number: 1 docusate sodium 50 mg / sennosides, nursing home 8.6 mg oral tablet (8 sources) Start: 07-27-2024 Sennosides-Docusate Sodium (2-In-1 Laxative) 8.6-50 mg tablet Active 1 TAB-CAP PO Daily at bedtime October 06, 2024 12:00am Start: 04-09-2024 take 1 tablet by piyush th every twelve hours as needed for constipation 1 tablet, oral, Every 12 hours PRN, constipation, Starting on Fri04/09/24 at 1348 take 1 tablet by piyush th in the morning sennosides-docusate sodium (SENNA WITH DOCUSATE SODIUM) 8.6-50 mg Take 1 tablet by mouth in the morning. Active 0.4 ml enoxaparin sodium 100 mg/ml prefilled syringe (1 source) Low Molecular Weight Heparin Start: 04-10-2024 40 mg, subcutaneous, Daily, First dose on Fri04/10/24 at 0600, When Creatinine Clearance 30 mL/min or greater Look-alike/sound-alike medication - verify indication for use. ertapenem 1000 mg injection (1 source) Penem Antibacterial Start: 10-12-2024 take 1 g intravenously every twenty-four hours Ertapenem 1 gram Recon Soln Active 1 GM IV Q24H 3 3 October 12, 2024 12:00am finasteride 5 mg oral tablet (6 sources) 5-alpha Reductase Inhibitor Start: 10-12-2024 finasteride 5 mg Tab 30 tab(s), 0 Refill(s), Refills(s) 0 Start Date: 10/25/24 Status: Ordered Repeat number: 1 folic acid 1 mg oral tablet (3 sources) Start: 04-15-2025 take 1 tablet by mouth once daily folic acid 1 mg Tab 1 mg = 1 tab(s), Oral, Daily Start Date: 04/15/25 Status: Ordered Repeat number: 1 FreeStyle Kathie 2 Gaylord - (4 sources) Start: 11-26-2023 FreeStyle Kathie 2 Gaylord - Use to test home BS transcutaneous 4x daily for 365 days Oct, Active FreeStyle Kathie 2 Sensor - (4 sources) Start: 11-26-2023 FreeStyle Kathie 2 Sensor - Use to check home BS transcutaneous 4x daily for 30 days Oct, Active gabapentin 100 mg oral capsule (13 sources) Anti-epileptic Agent Start: 10-25-2024 gabapentin 100 mg Cap 90 EA, 0 Refill(s), Refills(s) 0 Start Date: 10/25/24 Status: Ordered Repeat number: 1 Start: 04-21-2024 take 1 capsule by [facility] three times daily 100 mg, oral, 3 [...] bolus injection glucagon (rdna) 1 mg injection (3 sources) Antihypoglycemic Agent Start: 10-02-2024 1 mg, [...] or is unable to eat or drink. Start: 04-09-2024 1 mg, intramus cular, As needed, low blood sugar, blood glucose less than 70 mg/dL and unconscious or NPO without IV access., Starting on Fri04/09/24 at 1348, If conscious and not NPO, immediately follow with meal tray or high protein (7Grams) snack if tray not available. If NPO, initiate IV 5% Dextrose/Water at 100 mL/hr and contact prescriber for additional orders. If blood glucose is not greater than 70 mg/dL after initial treatment, repeat treatment. 50 ml glucose 500 mg/ml prefilled syringe (5 sources) Start: 10-02-2024 12.5 g, intrav enous, Every 15 min PRN, For blood glucose 41 to 70 mg/dL, Starting on 10/02/24 at 0522, May repeat until blood glucose level reaches 100 mg/dL or greater. Push 2 - 3 mL/minute if patient has secure IV access. Start: 04-09-2024 15 g, oral, As needed, low blood sugar, blood glucose less than 70 mg/dL, Starting on Fri04/09/24 at 1348, If patient conscious and taking PO. If blood glucose is not greater than 70 mg/dL after initial treatment, repeat treatment. Start: 04-09-2024 25 mL, intrave nous, As needed, low blood sugar, blood glucose less than 70 mg/dL and unconscious or NPO with IV access, Starting on Fri04/09/24 at 1348, Push over 1-3 minutes STAT. If conscious and not NPO, immediately follow with meal tray or high protein (7 grams) snack if tray not available. If NPO, initiate 5% dextrose in water at 100 mL/hr and contact prescriber for additional orders. If blood glucose is not greater than 70 mg/dL after initial treatment, repeat treatment. VESICANT (RED) Warning: HYPERTONIC solution. Start: 04-09-2024 take 70 mg intravenously every hour 100 mL/hr, intravenous, Continuous PRN, blood glucose less than 70 mg/dL, Starting on Fri04/09/24 at 1348, Use immediately following dextrose 50% or glucagon treatment for patients who are unconscious or NPO. Contact prescriber for additional orders. If blood glucose is not greater than 70 mg/dL after initial treatment, repeat treatment. glycine 15 mg/ml irrigation solution (1 source) Start: 10-02-2024 3,000 mL, irri gation, Continuous, Starting on 10/02/24 at 1800, Bladder irrigation Insulin Admin Supplies - (2 sources) Start: 12-01-2023 Insulin Admin Supplies - as directed to use for insulin for 30 days Nov, Active 3 ml insulin aspart, human 100 unt/ml pen injector (6 sources) Insulin Analog Start: 01-17-2024 NovoLOG FLEXPE N 100 UNIT/ML pen INJECT 15 UNITS UNDER THE SKIN THREE TIMES DAILY 01/17/2024 Active NovoLOG FlexPen 100 UNIT/ML 15units Subcutaneous tid for 30 days Active Insulin Glargine (Lantus U-100 Insulin) 100 unit/mL solution (6 sources) Start: 06-17-2024 inject 15 [IU] by subcutaneous injection at bedtime Insulin Glargine (Lantus U-100 Insulin) 100 unit/mL solution Active 15 UNIT SUBCUT Bedtime June 17, 2024 1:45pm Start: 03-31-2024 End: 06-17-2024 inject 25 [IU] by subcutaneous injection once daily Insulin Glargine (Lantus U-100 Insulin) 100 unit/mL solution Discontinued 25 UNIT SUBCUT Daily March 31, 2024 9:31am June 17, 2024 1:50pm Start: 01-22-2024 End: 03-31-2024 inject 15 [IU] by subcutaneous injection twice daily Insulin Glargine (Lantus U-100 Insulin) 100 unit/mL solution Discontinued 15 UNIT SUBCUT Twice daily January 21, 2024 11:00pm March 31, 2024 5:26pm Start: 01-22-2024 inject 15 [IU] by gaona bcutaneous injection twice daily Insulin Glargine (Lantus U-100 Insulin) 100 unit/mL solution Active 15 UNIT SUBCUT Twice daily January 22, 2024 12:00am 3 ml insulin lispro 100 unt/ml pen injector (20 sources) Insulin Analog Start: 04-25-2025 inject 1 [IU] by subcutaneous injection at bedtime Admelog SoloStar 100 units/mL injectable solution 1 unit(s), SubCutaneous, sliding scale before meals and at bedtime, Refills(s) 0 Start Date: 04/25/25 Status: Ordered Repeat number: 1 Start: 10-25-2024 Admelog SoloSt ar 100 units/mL injectable solution 3 mL, 0 Refill(s), Refills(s) 0 Start Date: 10/25/24 Status: Ordered Repeat number: 1 Start: 10-02-2024 0-10 Units, gaona bcutaneous, 4 times daily before meals and [...] = 10 units >400 = call Active Insulin Lispro (Admelog Solostar U-100 Insulin) 100 unit/mL insulin pen (1 source) Start: 10-06-2024 inject 1 dose by subcutaneous injection at bedtime Insulin Lispro (Admelog Solostar U-100 Insulin) 100 unit/mL insulin pen Active 1 sliding scale dose SUBCUT Before meals and at bedtime October 06, 2024 12:00am FSBS 151-200, give 2 units 201-250, give 4 units 251-300, give 6 units 301-350, give 8 units 351-400, give 10 units > 400 notify provider insulin lispro (HumaLOG) 100 unit/mL insulin pen (2 sources) Start: 10-29-2023 insulin lispro (HumaLOG) 100 unit/mL insulin pen Inject 2-10 Units under the skin 4 (four) times a day with meals and nightly. 151-200, give 2 units. 201-250, give 4 units. 251-300, give 6 units. 301-350, give 8 units. 351-400, give 10 units. 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 Take before meals. Do not crush or chew. 30 capsule 11 11/02/2024 7:19 PM EST 11/02/2024 11/02/2025 Active loperamide hydrochloride 2 mg oral capsule (3 sources) Opioid Agonist Start: 01-07-2025 loperamide 2 mg Cap 2 mg = 1 cap(s), Oral Start Date: 01/07/25 Status: Ordered Repeat number: 1 Magnesium Hydroxide (10 sources) Start: 01-07-2025 magnesium hydroxide 400 mg Start Date: 01/07/25 Status: Ordered Repeat number: 1 Start: 10-04-2024 take 5 mL by mouth e very twenty-four hours as needed Start: 06-17-2024 take 1 mL by mouth o nce daily at bedtime as needed for constipation Magnesium Hydroxide 400 mg/5 mL suspension Active 30 ML PO Daily at bedtime as needed for constipation June 16, 2024 11:00pm take 5 mL by mouth e very twenty-four hours as needed magnesium hydroxide (Milk of Magnesia) 400 mg/5 mL suspension Take 5 mL by mouth once daily as needed for constipation. Active magnesium oxide 400 mg oral capsule (9 sources) Start: 10-06-2024 take 1 capsule by mouth once daily Magnesium Oxide 400 mg magnesium capsule Active 400 MG PO Daily October 06, 2024 12:00am Start: 10-04-2024 take 400 mg by mouth once soto y 400 mg, oral, Daily, First dose on 10/04/24 at 1600 Start: 10-03-2024 Start: 10-03-2024 End: 10-03-2024 take 400 mg by mouth once 400 mg, oral, Once, On Sun 1 12/04/23 at 1130, For 1 dose Start: 10-03-2024 50 ml magnesium sulfate 40 mg/ml injection (2 sources) Start: 04-09-2024 2,000 mg, intr avenous, at 25 mL/hr, Administer over 120 Minutes, As needed, Magnesium level 1.7 to 1.9 mg/dL, or Ionized Magnesium level 0.45 to 0.5 mmol/L., Starting on Fri04/09/24 at 1348, Recheck magnesium level 4 hours after infusion complete. With each magnesium result continue the replacement orders as needed. Start: 04-09-2024 4,000 mg, intr avenous, at 25 mL/hr, Administer over 240 Minutes, As needed, Magnesium level 1.6 mg/dL or less, or Ionized Magnesium level 0.44 mmol/L or less, Starting on Fri04/09/24 at 1348, Recheck magnesium level 4 hours after infusion complete. With each magnesium result continue the replacement orders as needed. melatonin 3 mg oral tablet (12 sources) Start: 06-17-2024 take 2 capsules by mouth once daily at bedtime as needed for sleep Melatonin 3 mg capsule Active 6 MG PO Daily at bedtime as needed for sleep June 16, 2024 11:00pm Start: 06-05-2024 take 2 tablets by mo uth once daily melatonin (CIRCADIN) tablet Indications: insomnia Take 2 tablets (6 mg total) by mouth nightly Indications: difficulty sleeping. Active menthol 0.05 mg/mg medicated patch (2 sources) Start: 04-25-2025 Biofreeze 5% t opical pad Topical, TID, Refill(s) 0 Start Date: 04/25/25 Status: Ordered Repeat number: 1 METOPROL SUC 50MG ER TAB (5 sources) Start: 10-25-2024 METOPROL SUC 5 0MG ER TAB METOPROL SUC 50MG ER TAB Start Date: 10/25/24 Status: Ordered Repeat number: 1 Start: 10-25-2024 METOPROL SUC 5 0MG ER TAB METOPROL SUC 50MG ER TAB Start Date: 10/25/24 Status: Ordered 24 hr metoprolol succinate 50 mg extended release oral tablet (11 sources) beta-Adrenergic Michael Start: 09-29-2024 End: 04-28-2025 metoprolol succinate 50 mg ER Tab Oral, 1 Refill(s), Refills(s) 0 Start Date: 09/29/24 Status: Ordered Repeat number: 1 24 hr nicotine 0.292 mg/hr transdermal system (10 sources) Cholinergic Nicotinic Agonist Start: 11-27-2024 End: [...] 21 mg /24 hr patch 1 patch 2 ml ondansetron 2 mg/ml injection (3 sources) Serotonin-3 Receptor Antagonist Start: 04-09-2024 take 4 mg intravenously every four hours as needed for nausea and vomiting 4 mg, intravenous, Every 4 hours PRN, nausea, vomiting, Starting on Fri04/09/24 at 1348, Administer over 2-5 minutes. Start: 04-09-2024 End: 04-09-2024 4 mg, intravenous, Once, On Fri04/09/24 at 1325, For 1 dose, Administer over 2-5 minutes. POLYETHYLENE GLYCOL 3350 (10 sources) Osmotic Laxative Start: 10-02-2024 Start: 10-02-2024 Polyethylene G lycol 3350 (Clearlax) 17 gram/dose powder Active 17 GM PO Daily October 06, 2024 12:00am Start: 10-02-2024 polysaccharide iron complex 150 mg oral capsule (3 sources) Start: 04-25-2025 take 150 mg by mouth once daily Ferrex-150 150 mg, Oral, Daily, Refills(s) 0 Start Date: 04/25/25 Status: Ordered Repeat number: 1 Start: 04-15-2025 take 1 capsule by [facility] once daily Ferrex-150 oral capsule 150 mg = 1 cap(s), Oral, Daily Start Date: 04/15/25 Status: Ordered Repeat number: 1 Potassium Chloride (1 source) Start: 04-09-2024 potassium chlo ride (K-TAB,KLOR-CON) CR tablet 30-50 mEq psyllium 3400 mg powder for oral suspension (2 sources) Start: 04-25-2025 take 3.4 g by mouth once daily Metamucil 3.4 g/5.2 g oral powder 3.4 gm, Oral, Daily, Refills(s) 0 Start Date: 04/25/25 Status: Ordered Repeat number: 1 sennosides, nursing home 8.6 mg oral tablet (7 sources) Start: 10-02-2024 Start: 10-02-2024 Start: 10-02-2024 take 1 tablet by piyush th once daily 17.2 mg (2 tablet), oral, Daily, First dose on 10/02/24 at 0900 take 2 tablets by mo ut once daily sennosides (Senokot) 8.6 mg tablet Take 2 tablets (17.2 mg) by mouth once daily. Active sodium phosphate 20 mmol in sodium chloride 0.9 % 250 mL IVPB (1 source) Start: 04-09-2024 sodium phospha te 20 mmol in sodium chloride 0.9 % 250 mL IVPB sulfamethoxazole 800 mg / trimethoprim 160 mg oral tablet (1 source) Dihydrofolate Reductase Inhibitor Antibacterial, Sulfonamide Antimicrobial Start: 04-28-2025 End: 05-03-2025 Bactrim D.S. 800 mg-160 mg Tab 1 tab(s), Oral, BID for 5 day(s), 10 tab(s), Refill(s) 0 Start Date: 04/28/25 Stop Date: 05/03/25 Status: Ordered Quantity: 10.0 Unit: tab(s) Repeat number: 1 Indications: Infection and inflammatory reaction due to indwelling urethral catheter, initial encounter; tamsulosin hydrochloride 0.4 mg oral capsule (12 sources) alpha-Adrenergic Michael Start: 10-02-2024 End: 04-28-2025 tamsulosin 0.4 mg Cap 30 cap(s), 0 Refill(s), Refills(s) 0 Start Date: 10/25/24 Status: Ordered Repeat number: 1 Start: 06-17-2024 End: 07-27-2024 take 1 capsule by mouth once daily at bedtime Tamsulosin 0.4 mg capsule Discontinued 0.4 MG PO Daily at bedtime June 16, 2024 11:00pm July 27, 2024 3:49pm ticagrelor 90 mg oral tablet (13 sources) Start: 10-05-2024 Brilinta (zohra grelor) 90 mg oral tablet 28 tab(s), 0 Refill(s), Refills(s) 0 Start Date: 10/25/24 Status: Ordered Repeat number: 1 Start: 07-27-2024 Ticagrelor (Br ilinta) 90 mg tablet Active 90 MG PO Twice daily July 26, 2024 11:00pm On Hold: Resume on 10/26/24. Please hold Brillinta until seen by urologist on October 25, 2024 Start: 06-12-2024 take 1 tablet by mouth once ti cagrelor (BRILINTA) 90 mg tablet Take 1 tablet (90 mg total) by mouth every 12 (twelve) hours. 60 tablet 5 06/12/2024 Active Start: 04-25-2024 take 1 tablet by mouth once ti cagrelor (BRILINTA) 90 mg tablet Take 1 tablet (90 mg total) by mouth every 12 (twelve) hours. 60 tablet 5 04/25/2024 Active traZODone hydrochloride 150 mg oral tablet (12 sources) Serotonin Reuptake Inhibitor Start: 04-15-2025 traZODONE 150 mg Tab 75 mg = 0.5 tab(s), Oral, Once a day (at bedtime) Start Date: 04/15/25 Status: Ordered Repeat number: 1 Start: 10-25-2024 traZODONE 50 m g Tab Refills(s) 0 Start Date: 10/25/24 Status: Ordered Start: 10-04-2024 take 25 mg by mouth once daily 25 mg, oral, Nightly, First dose on 10/04/24 at 2100 Start: 06-17-2024 Trazodone 50 m g tablet Active 25 MG PO Daily at bedtime June 16, 2024 11:00pm take 0.5 tablet by m outh once daily at bedtime traZODone (Desyrel) 50 mg tablet Take 0.5 tablets (25 mg) by mouth once daily at bedtime. Active Completed/Discontinued Medications Medication Drug Class(es) Dates Sig (Normalized) Sig (Original) acetaminophen 325 mg oral tablet (10 sources) Start: 10-02-2024 take 5 tablets by mouth every eight hours acetaminophen 325 mg Tab 325 mg = 1 tab(s), Oral, q8hr, 500mg, Oral, PRN, 5 Refill(s), Refills(s) 0 Start Date: 10/02/24 Status: Ordered Repeat number: 1 Start: 10-02-2024 Start: 10-02-2024 take 1 tablet by piyush th every six hours as needed 650 mg, oral, Every 6 hours PRN, pain mild (1-3), first line, pain moderate (4-6), first line, headaches, Starting on 10/02/24 at 0607, If ordered PRN for pain, nurse is permitted to administer this medication for higher pain scores based on patient preference? Yes Start: 06-17-2024 take 2 tablets by mo ut three times daily as needed for pain Acetaminophen 500 mg tablet Active 1000 MG PO Three times daily as needed for pain June 16, 2024 11:00pm Start: 04-09-2024 [facility] as needed for pain and headache 650 mg, oral, Every 4 hours PRN, mild pain - pain scale 1-3, headaches, Temperature greater than 38.3 C, Starting on Fri04/09/24 at 1348, [Warning: Total Acetaminophen not to exceed more than 4 grams (4000 mg) in 24 hours] take 2 tablets by mo uth every eight hours as needed for pain acetaminophen (TYLENOL EXTRA STRENGTH) 500 mg tablet Take 2 tablets (1,000 mg total) by mouth every 8 (eight) hours as needed for pain. Active atorvastatin 40 mg oral tablet (20 sources) HMG-CoA Reductase Inhibitor Start: 10-29-2023 atorvastatin 40 mg Tab 30 EA, 0 Refill(s), TAKE 1 TABLET BY MOUTH EVERY DAY, Refills(s) 0 Start Date: 10/25/24 Status: Ordered Repeat number: 1 betamethasone 0.5 mg/ml / clotrimazole 10 mg/ml topical cream (3 sources) Azole Antifungal, Corticosteroid Start: 05-09-2025 apply 15 g topically twice daily betamethasone-briseida trimazole Top 0.05%-1% Crm 15 gram miguel, Topical, BID, Refill(s) 0 Start Date: 05/09/25 Status: Ordered Repeat number: 1 Start: 04-25-2025 apply 1 [IU] topical ly twice daily betamethasone-clotrimazole Top 0.05%-1% Crm 15 gram 1 miguel, Topical, BID, 15 gram, Refill(s) 0 Start Date: 04/25/25 Status: Ordered Quantity: 15.0 Unit: g Repeat number: 1 Blood-Glucose Meter,Continuo us (Freestyle Kathie 3 Gaylord) misc (3 sources) Start: 03-01-2024 End: 10-06-2024 Blood-Glucose Meter,Continuo us (Freestyle Akthie 3 Gaylord) misc Discontinued 0 .Route 1 February 29, 2024 11:00pm October 06, 2024 5:35pm to test daily Start: 03-01-2024 Blood-Glucose Meter,Continuous (Freestyle Kathie 3 [address]) [facility] Active 0 .Route 1 March 01, 2024 12:00am to test daily Blood-Glucose Sensor (Freest yle Kathie 3 Sensor) device (3 sources) Start: 03-01-2024 End: 10-06-2024 Blood-Glucose Sensor (Freest yle Kathie 3 Sensor) device Discontinued 0 .Route 2 February 29, 2024 11:00pm October 06, 2024 5:35pm to test blood sugar daily Start: 03-01-2024 Blood-Glucose Sensor (Freestyle Kathie 3 Sensor) device Active 0 .Route 2 March 01, 2024 12:00am to test blood sugar daily carvedilol 3.125 mg oral tablet (4 sources) alpha-Adrenergic Michael, beta-Adrenergic Michael Start: 07-24-2021 take 1 tablet by mouth every twelve hours Carvedilol 3.125 MG 1 tablet with food Orally Twice a day for 30 days Jun, Not-Taking/PRN clopidogrel 75 mg oral tablet (9 sources) P2Y12 Platelet Inhibitor Start: 04-09-2024 End: 04-09-2024 take 300 mg by mouth once 300 mg, oral, Once, On Fri04/09/24 at 0855, For 1 dose, Look-alike/sound-al katheryn medication - verify indication for use. Start: 01-22-2024 End: 06-17-2024 take 75 mg by mouth once daily 75 mg, oral, Daily, First dose on Fri04/10/24 at 0900, Look-alike/sound-alike medication - verify indication for use. Start: 10-30-2023 End: 12-11-2023 take 1 tablet by mouth in the morning clopidogreL (PLAVIX) 75 mg tablet Take 1 tablet (75 mg total) by mouth in the morning. 30 tablet 1 10/30/2023 12/11/2023 Discontinued (Therapy completed) doxycycline hyclate 100 mg oral capsule (2 sources) Tetracycline-class Drug Start: 03-26-2024 End: 06-17-2024 take 1 capsule by mouth twice daily Doxycycline Hyclate 100 mg capsule Discontinued 100 MG PO Twice daily 14 March 25, 2024 11:00pm June 17, 2024 1:43pm glimepiride 4 mg oral tablet (4 sources) Sulfonylurea Start: 06-15-2022 take 1 tablet by mouth once daily as needed Glimepiride 4MG Glimepiride 4MG, 1 (one) Tablet daily, 30 minutes prior to bkfst # 90, 06/15/2022, No Refill. Active Oral daily, 30 minutes prior to bkfst for 90 May, Not-Taking/PRN 3 ml sodium hyaluronate 20 mg/ml prefilled syringe (1 source) Start: 02-12-2024 End: 02-12-2024 60 mg, intra-articular, One-Time Injection, Starting on Radha 02/12/24 at 0923, For 1 dose hydrOXYzine hydrochloride 50 mg oral tablet (4 sources) Antihistamine Start: 10-03-2024 End: 10-03-2024 take 50 mg by mouth once 50 mg, oral, Once, On 10/03/24 at 1500, For 1 dose Start: 06-17-2024 End: 07-27-2024 take 1 tablet by mouth three times daily as needed Hydroxyzine Hcl 25 mg tablet Discontinued 25 MG PO Three times daily as needed June 16, 2024 11:00pm July 27, 2024 3:48pm take 1 tablet by piyush every six hours as needed for anxiety hydrOXYzine (ATARAX) 25 mg tablet Take 1 tablet (25 mg total) by mouth every 6 (six) hours as needed for anxiety. Active Insulin Aspart U-100 (Novolo g Flexpen U-100 Insulin) 100 unit/mL (3 mL) insulin pen (5 sources) Start: 06-17-2024 End: 10-06-2024 Insulin Aspart U-100 (Novolo g Flexpen U-100 Insulin) 100 unit/mL (3 mL) insulin pen Discontinued 1 sliding scale dose SUBCUT Use as Directed June 17, 2024 1:44pm October 06, 2024 5:35pm 151-200 - 2 units 201-250 - 4 units 251-300 - 6 units 301-350 - 8 units 351-400 - 10 units Start: 01-22-2024 End: 06-17-2024 Insulin Aspart U-100 (Novolo g Flexpen U-100 Insulin) 100 unit/mL (3 mL) insulin pen Discontinued 1 sliding scale dose SUBCUT Use as Directed January 21, 2024 11:00pm June 17, 2024 1:50pm Start: 01-22-2024 Insulin Aspart U-100 (Novolog Flexpen U-100 Insulin) 100 unit/mL (3 mL) insulin pen Active 1 sliding scale dose SUBCUT Use as Directed January 22, 2024 12:00am 3 ml insulin glargine 100 unt/ml pen injector (20 sources) Insulin Analog Start: 10-25-2024 Lantus Solosta r Pen 100 units/mL subcutaneous solution 15 mL, 0 Refill(s), ADMINISTER 15 UNITS UNDER THE SKIN AT BEDTIME, Refills(s) 0 Start Date: 10/25/24 Status: Ordered Repeat number: 1 Start: 10-04-2024 inject 15 [IU] by gaona bcutaneous injection once daily 15 Units, subcutaneous, Nightly, First dose on Fri10/04/24 at 2100 Start: 04-21-2024 inject 0.15 mL by gaona bcutaneous injection once daily insulin glargine (LANTUS U-100 INSULIN) 100 unit/mL injection Inject 0.15 mL (15 Units total) under the skin nightly. 10 mL 2 04/21/2024 Active Start: 04-09-2024 15 Units, subc utaneous, 2 times daily, First dose on Fri04/09/24 at 2100, Look-alike/sound-alike medication - verify indication for use. Prime with 2 units of insulin prior to administration. Basal (long acting) insulin for subcutaneous administration only. Do not mix with any other insulin. Pre-filled pens stable 28 days at room temperature. Start: 12-01-2023 Lantus SoloSta r 100 UNIT/ML 15u Subcutaneous q HS for 30 days Nov, Active Start: 10-29-2023 inject 15 [IU] by gaona bcutaneous injection in the morning insulin glargine (LANTUS, SEMGLEE) 100 unit/mL (3 mL) insulin pen Inject 15 Units under the skin in the morning and 15 Units before bedtime. 15 mL 12 10/29/2023 Active Start: 10-29-2023 inject 15 [IU] by gaona bcutaneous injection in the morning insulin glargine (LANTUS, SEMGLEE) 100 unit/mL (3 mL) insulin pen Inject 15 Units under the skin in the morning and 15 Units before bedtime. 15 mL 12 10/29/2023 Active inject 15 [IU] by gaona bcutaneous injection twice daily Lantus 100 UNIT/ML 15 units Subcutaneous bid for 30 days Active iohexoL (OMNIPAQUE) 350 mg iodine/mL injection 100 mL (2 sources) Start: 04-10-2024 End: 04-10-2024 100 mL, intravenous, Once in imaging, contrast, Starting on 04/10/24 at 1333, For 1 dose, VESICANT (RED) Start: 04-09-2024 End: 04-09-2024 100 mL, intravenous, Once in imaging, contrast, Starting on Fri04/09/24 at 0826, For 1 dose, VESICANT (RED) lisinopril 5 mg oral tablet (4 sources) Angiotensin Converting Enzyme Inhibitor Start: 10-16-2015 take 1 tablet by mouth every twenty-four hours Lisinopril 5 MG 1 tablet Orally Once a day for 0 days Sep, Not-Taking/PRN losartan potassium 25 mg oral tablet (6 sources) Angiotensin 2 Receptor Imchael Start: 01-23-2024 End: 06-17-2024 take 1 tablet by mouth once daily Losartan 25 mg tablet Discontinued 25 MG PO Daily January 22, 2024 11:00pm June 17, 2024 1:50pm meloxicam 15 mg oral tablet (7 sources) Nonsteroidal Anti-inflammatory Drug Start: 03-17-2024 End: 04-10-2024 take 1 tablet by mouth in the morning meloxicam (MOBIC) 15 mg tablet Indications: Arthritis of right knee TAKE 1 TABLET(15 MG) BY MOUTH IN THE MORNING 30 tablet 2 03/17/2024 04/10/2024 Discontinued Start: 12-30-2023 End: 03-17-2024 take 1 tablet by mouth in the morning meloxicam (Mobic) 15 MG tablet Take 15 mg by mouth in the morning. 12/30/2023 Active metFORMIN hydrochloride 1000 mg oral tablet (4 sources) Biguanide Start: 07-03-2021 metFORMIN HCl 1000MG metFORMIN HCl 1000MG, 1 (one) Tablet Before bkfst and evening meal # 180, 07/03/2021, Ref. x3. Active Oral Before bkfst and evening meal for 90 *Pick strength-form from [employer] for eRX* 07 Jun, 2021 Not-Taking/PRN mupirocin 0.02 mg/mg topical ointment (2 sources) RNA Synthetase Inhibitor Antibacterial Start: 03-26-2024 End: 06-17-2024 Mupirocin 2 % ointment Discontinued 1 APPLIC TOPICAL Twice daily 17 08March 25, 2024 11:00pm June 17, 2024 1:50pm NovoLIN 70/30 FlexPen Relion (70-30) 100UNIT/ML (4 [...] evening meal for 30 *Pick strength-form from [employer] for eRX* 15 Jul, 2020 Not-Taking/PRN pantoprazole 40 mg delayed release oral tablet (11 sources) Proton Pump Inhibitor Start: 06-17-2024 take 1 tablet by mouth once daily in the morning Pantoprazole [address] Tab 145 EA, 0 Refill(s), TABLET 1 TABLET BY MOUTH TWICE DAILY BEFORE MEALS FOR 50 DAYS THEN 1 EVERY MORNING THERAFTER, Refills(s) 0 Start Date: 10/25/24 Status: Ordered Repeat number: 1 Start: 04-21-2024 End: 08-09-2024 take 1 tablet by mouth twice daily before mealtime, then take 1 tablet by mouth once daily before breakfast pantoprazole (PROTONIX) 40 mg EC tablet Take 1 tablet (40 mg total) by mouth 2 (two) times a day before meals for 50 days, THEN 1 tablet (40 mg total) every morning before breakfast for 60 days. Continue taking daily until follow-up with GI.. 160 tablet 04/21/2024 08/09/2024 Active pravastatin sodium 80 mg oral tablet (8 sources) HMG-CoA Reductase Inhibitor Start: 04-16-2022 take 1 tablet by mouth every twenty-four hours Pravastatin Sodium 80 MG 1 tablet Orally Once a day for 100 days Dec, Not-Taking/PRN 1000 ml sodium chloride 9 mg/ml injection (10 sources) Start: 04-10-2024 End: 04-10-2024 80 mL, intravenous, Once in imaging, pre/post contrast, Starting on Fri04/10/24 at 1333, For 1 dose Start: 04-10-2024 End: 04-10-2024 500 mL, intravenous, at 500 mL/hr, Administer over 1 Hours, Once, On Fri04/10/24 at 1215, For 1 dose Start: 04-09-2024 take 20 mL intraveno usly every hour as needed 20 mL/hr, intravenous, Continuous PRN, to maintain patency of lines, Starting on Fri04/09/24 at 1348 Start: 04-09-2024 take 25 mL intraveno usly every hour as needed 25 mL, intravenous, at 100 mL/hr, Administer over 15 Minutes, As needed, line care, line care after IVPB administration, Starting on Fri04/09/24 at 1348 Start: 04-09-2024 10 mL, intrave nous, As needed, line care, Starting on Fri04/10/24 at 1333 Start: 04-09-2024 End: 04-09-2024 500 mL, intravenous, at 968 mL/hr, Administer over 31 Minutes, Once, On Fri04/09/24 at 1005, For 1 dose Start: 04-09-2024 End: 04-09-2024 80 mL, intravenous, Once in imaging, pre/post contrast, Starting on Fri04/09/24 at 0826, For 1 dose Start: 04-09-2024 take 75 mL intraveno usly every hour 75 mL/hr, intravenous, Continuous, Starting on Fri04/09/24 at 0805 sodium phosphate, dibasic 59.3 mg/ml / sodium phosphate, monobasic 161 mg/ml enema (1 source) Start: 10-04-2024 End: 10-04-2024 1 enema, rectal, Once, On Fri10/04/24 at 1500, For 1 dose traMADol hydrochloride 50 mg oral tablet (3 sources) Opioid Agonist Start: 06-03-2024 End: 07-27-2024 take 1 tablet by mouth twice daily as needed for pain Tramadol 50 mg tablet Discontinued 50 MG PO Twice daily as needed for pain 60 30 June 02, 2024 11:00pm July 27, 2024 3:49pm take 1 tablet by piyush th every six hours as needed for pain traMADoL (ULTRAM) 50 mg tablet Take 1 tablet (50 mg total) by mouth every 6 (six) hours as needed for pain. Active Problems Active Problems Problem Classification Problem Date Documented Da te Episodic/Chronic Acute cerebrovascular disease (20 sources) Cerebral infarction due to thrombosis of unspecified cerebral artery; 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] Onset: 4 10-25-2024 Chronic Acute cerebrovascular disease (1 source) Acute cerebrovascular disease Onset: Biliary tract disease (6 sources) Polyp of gallbladder; 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: [Cholesterolosis of gallbladder] Onset: 5 11-02-2024 Episodic Cardiac dysrhythmias (6 sources) Ventricular tachycardia; 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: [Nonsustained ventricular tachycardia ] Onset: 4 10-25-2024 Chronic Comment on above: HOLTER: NSR, 1,857 V E (<1%), 1,806 PVC, 44 couplets, 7 beat VT, average rate 77bpm, slowest 38bpm and fastest 133 bpm (NSVT). Cardiac dysrhythmias (3 sources) Bradycardia; 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: [Bradycardia, unspecified] Onset: 5 10-06-2024 Episodic Chronic kidney disease (5 sources) Chronic kidney disease 10-25-2024 Chronic Complication of device; implant or graft (2 sources) Infection and inflammation associated with indwelling urinary catheter; 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: [Infection and inflammatory reaction due to indwelling urethral catheter, initial encounter] Onset: 5 Episodic Deficiency and other anemia (1 source) Pancytopenia; 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: [Other pancytopenia] Onset: 5 Chronic Deficiency and other anemia (1 source) Iron deficiency anemia, unspecified; 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: [Iron deficiency anemia, unspecified] Onset: 4 Episodic Deficiency and other anemia (9 sources) Anemia; 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: [Anemia, unspecified] Onset: 4 10-25-2024 Episodic Deficiency and other anemia (1 source) Normocytic anemia; 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: [Anemia, unspecified] 10-09-2024 Episodic Diabetes mellitus with complications (20 sources) Type 2 diabetes mellitus; 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: [Type 2 diabetes mellitus with hyperglycemia] Onset: Chronic Diabetes mellitus without complication (4 sources) Type 2 diabetes mellitus without complications; 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: [Diabetes mellitus without mention of complication, type II or unspecified type, not stated as uncontrolled] Onset: 4 10-12-2024 Chronic Disorders of lipid metabolism (20 sources) Hypercholesterolemia; 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: [Pure hypercholesterolemia, unspecified] Onset: 4 Chronic Epilepsy; convulsions (1 source) Generalized epilepsy; 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: [Other generalized epilepsy and epileptic syndromes, not intractable, without status epilepticus] Onset: Chronic Esophageal disorders (1 source) Gastroesophageal reflux disease without esophagitis; 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: [Gastro-esophageal reflux disease without esophagitis] Onset: 5 Chronic Essential hypertension (20 sources) Essential hypertension; 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: [Essential (primary) hypertension] Onset: Chronic Comment on above: Echo: LVEF 60%, mild AI, dilated aorta 4cm - 10/2023,LVEF 75%, septal hypertrophy, normal RV size/function, RVSP 07/2024 Fluid and electrolyte disorders (12 sources) Hyponatremia; 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: [Hypo-osmolality and hyponatremia] Onset: 4 10-02-2024 Episodic Genitourinary symptoms and ill-defined conditions (20 sources) Blood in urine; 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: [Hematuria, unspecified] Onset: 4 10-04-2024 Episodic Headache; including migraine (1 source) Headache Onset: 4 Episodic Headache; including migraine (1 source) Headache; including migraine; 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: [Headache, unspecified] Onset: 4 Hyperplasia of prostate (12 sources) Benign prostatic hypertrophy with outflow obstruction; 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: [Benign prostatic hyperplasia with lower urinary tract symptoms] Onset: Chronic Hypertension with complications and secondary hypertension (1 source) Hypertensive urgency ; 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: [Hypertensive urgency] Onset: 5 Chronic Late effects of cerebrovascular disease (10 sources) Unspecified sequelae of cerebral infarction; 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: [Sequela of cerebrovascular accident] Onset: 4 12-11-2023 Chronic Osteoarthritis (17 sources) Osteoarthritis of right knee joint; 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: [Unilateral primary osteoarthritis, right knee] Onset: 4 01-23-2024 Chronic Other aftercare (4 sources) Long-term current use of insulin; 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] Episodic Other aftercare (4 sources) [facility] (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 insulin; 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] Onset: 4 Episodic Other aftercare (4 sources) Long-term current use of anticoagulant; 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: [[facility] (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 anticoagulants] Onset: 4 Episodic Other and ill-defined cerebrovascular disease (13 sources) Cerebral atherosclerosis; 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: [Cerebral atherosclerosis] 01-22-2024 Chronic Comment on above: Right hemispheric CV A - 09/2023Right hemispheric CVA - TA neck: no carotid stenosis - TA head: right DE stenosis - 10/2023MRI brain: right frontal lobe infarct - 10/2023 Other and ill-defined cerebrovascular disease (9 sources) Cerebral atherosclerosis; 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: [Cerebral atherosclerosis] Onset: 5 Chronic Other and ill-defined cerebrovascular disease (1 source) Other cerebrovascular vasospasm and vasoconstriction; 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: [Other cerebrovascular vasospasm and vasoconstriction] Onset: 4 Chronic Other and ill-defined cerebrovascular disease (1 source) Cerebrovascular disease; 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: [Other cerebrovascular vasospasm and vasoconstriction] 10-31-2023 Chronic Other and ill-defined heart disease (2 sources) Cardiomegaly; 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: [Cardiomegaly] Onset: 5 Chronic Other circulatory disease (3 sources) Personal history of transient ischemic attack (TIA), and cerebral infarction without residual deficits; 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: [Personal history of transient ischemic attack (TIA), and cerebral infarction without residual deficits] Onset: 5 Episodic Other circulatory disease (1 source) History of transient ischemic attack; 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: [Personal history of transient ischemic attack (TIA), and cerebral infarction without residual deficits] Onset: 5 Episodic Other connective tissue disease (2 sources) Presence of left artificial knee joint; 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: [Knee joint replacement] 03-26-2024 Chronic Other connective tissue disease (1 source) Unspecified symptoms and signs involving the nervous system; 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: [Unspecified symptoms and signs involving the nervous system] Onset: 4 Episodic Other connective tissue disease (1 source) Neuralgia and neuritis, unspecified; 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: [Neuralgia and neuritis, unspecified] Onset: 4 Episodic Other diseases of kidney and ureters (1 source) Renal mass; 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: [Other specified disorders of kidney and ureter] 10-20-2024 Chronic Other diseases of kidney and ureters (1 source) Other specified disorders of kidney and ureter; 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: [Unspecified disorder of kidney and ureter] 10-12-2024 Chronic Other diseases of kidney and ureters (4 sources) 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; 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: [Cyst of kidney, acquired] Onset: 4 Episodic Other diseases of kidney and ureters (5 sources) Complex renal cyst 10-25-2024 Episodic Other diseases of kidney and ureters (2 sources) Acquired renal cystic disease; 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: [Cyst of kidney, acquired] 09-29-2024 Episodic Comment on above: CT: 9.3cm renal cyst - 2023 (unchanged from 2016) Other diseases of kidney and ureters (1 source) Urinary tract obstruction; 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: [Other obstructive and reflux uropathy] Onset: 5 Episodic Other gastrointestinal disorders (6 sources) Constipation; 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: [Constipation, unspecified] Onset: 4 10-02-2024 Episodic Other gastrointestinal disorders (2 sources) Constipation, unspecified; 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: [Constipation, unspecified] Onset: 4 Episodic Other injuries and conditions due to external causes (1 source) Injury of head; 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: [Unspecified injury of head, initial encounter] Onset: 5 Episodic Other lower respiratory disease (1 source) Hypoxia; 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: [Hypoxemia] 10-06-2024 Episodic Other lower respiratory disease (1 source) Hypoxemia; 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: [Hypoxemia] 10-12-2024 Episodic Other nervous system disorders (5 sources) Encephalopathy, unspecified; 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: [G93.40] Onset: 5 Chronic Other nervous system disorders (5 sources) Unspecified abnormal involuntary movements; 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: [R25.9] Onset: 5 Episodic Other non-traumatic joint disorders (5 sources) Arthritis of right knee Onset: 4 10-25-2024 Chronic Other nutritional; endocrine; and metabolic disorders (1 source) Hypomagnesemia; 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: [Hypomagnesemia] 10-20-2024 Chronic Other nutritional; endocrine; and metabolic disorders (2 sources) Hypomagnesemia; 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: [Disorders of magnesium metabolism] Onset: 4 10-12-2024 Chronic Other screening for suspected conditions (not mental disorders or infectious disease) (3 sources) Other specified abnormal findings of blood chemistry; 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: [Raised cardiac enzyme or marker] Onset: 4 04-09-2024 Episodic Comment on above: MRSA in urine Paralysis (5 sources) Hemiplegia of left nondominant side Onset: 4 10-25-2024 Chronic Marilin-; endo-; and myocarditis; cardiomyopathy (except that caused by tuberculosis or sexually transmitted disease) (1 source) Hypertrophic cardiomyopathy; 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: [Other hypertrophic cardiomyopathy] 08-18-2024 Chronic Comment on above: ECHO: LVEF 75%, sept al hypertrophy, normal RV size/function, RVSP 07/2024 Residual codes; unclassified (1 source) Pain, unspecified; 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: [Pain, unspecified] Onset: 4 Episodic Residual codes; unclassified (5 sources) Urinary catheter in situ; 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: [Presence of other specified devices] Onset: 4 10-04-2024 Episodic Residual codes; unclassified (2 sources) Tobacco use and exposure - finding; 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: [Tobacco use] Onset: 4 10-05-2024 Episodic Residual codes; unclassified (2 sources) Presence of other specified devices; 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: [Presence of other specified devices] Onset: 4 Episodic Residual codes; unclassified (1 source) Tobacco use; 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: [Tobacco use] Onset: 4 Episodic Residual codes; unclassified (1 source) Procedure carried out on subject; 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: [Encounter for prophylactic measures, unspecified] Onset: 5 Episodic Spondylosis; intervertebral disc disorders; other back problems (1 source) Low back pain; 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: [Low back pain] 06-03-2024 Episodic Substance-related disorders (14 sources) Nicotine dependence; 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: [Nicotine dependence, cigarettes, uncomplicated] Chronic Superficial injury; contusion (9 sources) Contusion of right wrist, initial encounter; 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: [Contusion of right hand, initial encounter] Episodic Syncope (3 sources) Syncope; 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: [Syncope and collapse] Onset: 5 07-08-2024 Episodic Unclassified (1 source) Abnormal Lab Onset: 4 Unclassified (1 source) Blurred Vision, Facial Droop Onset: 3 Unclassified (1 source) Head Injury With LOC Onset: 4 Unclassified (5 sources) Drug therapy finding 10-25-2024 Unclassified (1 source) Supraventricular tachycardia, unspecified; 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: [Supraventricular tachycardia, unspecified] Onset: 5 Unclassified (2 sources) At risk for impaired skin integrity 04-25-2025 Comment on above: Problem added based on documenting Alejandro score less than or equal to 18, rash, or malnutrition. Urinary tract infections (6 sources) Urinary tract infectious disease; Translations: [Urinary tract infection, site not specified] Onset: 4 10-09-2024 Episodic Past or Other Problems Problem Classification Problem Date Documented Date Episodic/Chronic Acute and unspecified renal failure (10 sources) Acute kidney failure, unspecified; Translations: [Acute renal failure syndrome] Onset: 04-09-2024 04-09-2024 Episodic Acute posthemorrhagic anemia (3 sources) Acute posthemorrhagic anemia; Translations: [Acute posthemorrhagic anemia] Onset: 10-06-2024 10-20-2024 Episodic Bacterial infection; unspecified site (4 sources) Infection due to ESBL bacteria; Translations: [Bacterial infection, unspecified] Onset: 10-06-2024 10-09-2024 Episodic Blindness and vision defects (13 sources) Other visual disturbances; Translations: [Blurring of visual image] Onset: 10-26-2023 10-28-2023 Episodic Deficiency and other anemia (4 sources) Anemia, unspecified; Translations: [Anemia, unspecified] Onset: 04-09-2024 10-12-2024 Episodic Intracranial injury (2 sources) Traumatic cerebral edema; Translations: [Traumatic cerebral edema with unknown loss of consciousness status] Onset: 06-05-2024 06-05-2024 Episodic Malaise and fatigue (4 sources) Weakness; Translations: [Asthenia] Onset: 05-27-2024 05-27-2024 Episodic Mood disorders (8 sources) Mood disorders Onset: 12-11-2023 12-11-2023 Other circulatory disease (3 sources) History of cerebrovascular accident; Translations: [Personal history of transient ischemic attack (TIA), and cerebral infarction without residual deficits] Onset: 05-27-2024 05-27-2024 Episodic Other connective tissue disease (6 sources) Neurological symptom; Translations: [Unspecified symptoms and signs involving the nervous system] Onset: 04-09-2024 04-09-2024 Episodic Other diseases of kidney and ureters (3 sources) Cyst of kidney, acquired; Translations: [Cyst of kidney, acquired] Onset: 10-06-2024 10-12-2024 Episodic Other disorders of stomach and duodenum (1 source) Mass of duodenum; Translations: [Other diseases of stomach and duodenum] Onset: 10-27-2023 04-14-2024 Episodic Comment on above: Repeat EGD 8wks Other nervous system disorders (1 source) Unsteadiness on feet; Translations: [Unsteadiness on feet] Onset: 12-11-2023 Episodic Other nervous system disorders (10 sources) Abnormal gait; Translations: [Unsteadiness on feet] Onset: 12-11-2023 12-11-2023 Episodic Other non-traumatic joint disorders (5 sources) Pain in right knee; Translations: [Right knee pain] Onset: 12-30-2023 01-23-2024 Episodic Residual codes; unclassified (1 source) Altered mental status, unspecified; Translations: [Altered mental status, unspecified] Onset: 10-28-2023 Episodic Residual codes; unclassified (1 source) Hallucinations Onset: 10-26-2023 Episodic Residual codes; unclassified (1 source) Pain Onset: 12-30-2023 Episodic Residual codes; unclassified (2 sources) Transient alteration of awareness; Translations: [Transient alteration of awareness] Onset: 10-28-2023 12-11-2023 Episodic Residual codes; unclassified (10 sources) Altered mental status; Translations: [Altered mental status, unspecified] Onset: 10-26-2023 10-28-2023 Episodic Unclassified (1 source) Supraventricular tachycardia, unspecified; Translations: [Supraventricular tachycardia, unspecified] Onset: 01-21-2025 Results Test Name Value Interpretation Reference Range Facility Ambulatory Visit Summaryon 0 05-09-2025 Ambulatory Visit Summary Ambulatory Visit Summary VASHTI MASSEY :1955 Visit Date:05/09/2025 Ambulatory Visit Instructions Your Diagnosis Gross hematuria BPH with urinary obstruction History of UTI Complex renal cyst Anticoagulated Your Care Team Attending Physician - SEJAL TOWNSEND, JAROCHO Primary Care Physician - ELEAZAR MAYORGA DO This Is Your Medications List betamethasone-clotrimaz ole topical (betamethasone-clotrima zole Top 0.05%-1% Crm 15 gram) buPROPion (buPROPion 150 mg ER Tab) Contact prescribing physician if questions or concerns Misc Prescription (METOPROL SUC 50MG ER TAB) acetaminophen (acetaminophen 325 mg Tab) aspirin (aspirin 81 mg oral capsule) atorvastatin (atorvastatin 40 mg Tab) betamethasone-clotrimaz ole topical (betamethasone-clotrima zole Top 0.05%-1% Crm 15 gram) bisacodyl (Dulcolax 10 mg Supp) finasteride (finasteride 5 mg Tab) folic acid (folic acid 1 mg Tab) gabapentin (gabapentin 100 mg Cap) insulin glargine (Lantus Solostar Pen 100 units/mL subcutaneous solution) insulin lispro (Admelog SoloStar 100 units/mL injectable solution) insulin lispro (Admelog SoloStar 100 units/mL injectable solution) iron polysaccharide (Ferrex-150) lamotrigine levetiracetam (Keppra 500 mg Tab) loperamide (loperamide 2 mg Cap) magnesium hydroxide melatonin (melatonin 3 mg Tab) menthol topical (Biofreeze 5% topical pad) metoprolol (metoprolol succinate 50 mg ER Tab) pantoprazole (Pantoprazole [address] Tab) polyethylene glycol 3350 psyllium (Metamucil 3.4 g/5.2 g oral powder) tamsulosin (tamsulosin 0.4 mg Cap) ticagrelor (Brilinta (ticagrelor) 90 mg oral tablet) trazodone (traZODONE 150 mg Tab) Procedures Performed History of operative procedure on knee, History of repair of musculotendinous cuff of shoulder. Discharge Vitals Height 177 cm Height 70 in Weight 94.1 kg Weight 207.455 lb BMI 30.04 What to do next Scheduled Follow-Up Appointments Friday 3:00 PM EST With: JAROCHO POST MD Where: [facility] [address] [place] [address]- You Need to Schedule the Following Appointments Follow Up with SEJAL TOWNSEND, JAROCHO, VAN When: Where: Medications What How Much When Why Instructions Unchanged betamethasone-clotrimaz ole topical (betamethasone-clotrima zole Top 0.05%-1% Crm 15 gram) Topical 2 times a day Unchanged buPROPion (buPROPion 150 mg ER Tab) By Mouth 2 times a day Unchanged acetaminophen (acetaminophen 325 mg Tab) 1 Tablets By Mouth Every 8 hours 500mg, Oral, PRN, 5 Refill(s) Contact prescribing physician if questions or concerns Unchanged aspirin (aspirin 81 mg oral capsule) By Mouth Every 24 hours Contact prescribing physician if questions or concerns Unchanged atorvastatin (atorvastatin 40 mg Tab) 30 EA, 0 Refill(s), TAKE 1 TABLET BY MOUTH EVERY DAY Contact prescribing physician if questions or concerns Unchanged betamethasone-clotrimaz ole topical (betamethasone-clotrima zole Top 0.05%-1% Crm 15 gram) 1 Application Topical 2 times a day Contact prescribing physician if questions or concerns Unchanged bisacodyl (Dulcolax 10 mg Supp) 1 Suppositories By rectum Every day as needed for for constipation PRN Contact prescribing physician if questions or concerns Unchanged finasteride (finasteride 5 mg Tab) 30 tab(s), 0 Refill(s) Contact prescribing physician if questions or concerns Unchanged folic acid (folic acid 1 mg Tab) 1 Tablets By Mouth Every day Contact prescribing physician if questions or concerns [...] (Admelog SoloStar 100 units/ mL injectable solution) 1 Units Subcutaneous sliding scale before meals and at bedtime Contact prescribing physician if questions or concerns Unchanged insulin lispro (Admelog SoloStar 100 units/ mL injectable solution) 3 mL, 0 Refill(s) Contact prescribing physician if questions or concerns Unchanged iron polysaccharide (Ferrex-150) 150 Milligram By Mouth Every day Contact prescribing physician if questions or concerns Unchanged lamotrigine 25 Milligram By Mouth Contact prescribing physician if questions or concerns Unchanged levetiracetam (Keppra 500 mg Tab) 1 Tablets By Mouth 2 times a day Seizure, grand mal Contact prescribing physician if questions or concerns Unchanged loperamide (loperamide 2 mg Cap) 1 Capsules By Mouth Contact prescribing physician if questions or concerns Unchanged magnesium hydroxide 400 Milligram Contact prescribing physician if questions or concerns Unchanged melatonin (melatonin 3 mg Tab) 3 Unknown, Oral (more content not included)... Normal [facility] Urology Office/Clinic Noteon 05-09-2025 Urology Office/Clinic Note Urology Office/Clinic Note Chief Complaint follow up to [facility] ER HPI Staff 69 year old male here for follow up to [facility] inpatient stay (04/24-04/28) admitted due to acute metabolic encephalopathy secondary to catheter associated MRSA, Providencia urinary tract infection, postictal secondary to new onset poststroke seizure, minor head injury and hypokalemia. He was initially treated with IV fluid, IV ceftriaxone and potassium chloride supplements. Urine cultures isolated MRSA and Providencia and antibiotics were switched to IV meropenem and IV vancomycin. and then Bactrim DS for 5 days after discharge on 04/28 History of Present Illness Tests reviewed: reviewed UA I have reviewed the previous health record information and history for this patient from Dr. Bhakta I have reviewed and verified the staff HPI to be accurate for this encounter. There have been no associated fever, chills, flank pain, or blood in the urine. Denies any urinary infections since last encounter. Review of Systems PHQ Score Initial Depression Screen Score: 0 SCORE ROS - Provider Constitutional: denies weight loss, denies hot flashes. Eyes: denies eye problems. Gastrointestinal: denies nausea, denies vomiting. Cardiovascular: denies chest pain or angina. Integumentary: no dryness Musculoskeletal: denies musculoskeletal symptoms. ENMT: denies otolaryngeal symptoms. Respiratory: no shortness of breath. Heme/Lymph: denies easy bleeding tendency, denies easy bruising tendency. Psychiatric: no confusion, no anxiety. Genitourinary: See HPI. Physical Exam Vitals & Measurements HT: 70 in HT: 177 cm WT: 94.1 kg WT: 207.455 lb BMI: 30.04 General Appearance: alert, no distress, well nourished, well developed male. Assessment/Plan Resides at [facility]. Pt accompanied by daughter today. Portions of this record may have been created with voice recognition artificial intelligence software, specifically [employer], [email or web address] and or [employer]. Substitutions may have occurred due to the inherent limitations of voice recognition and artificial intelligence software. 1. Gross hematuria (R31.0: Gross hematuria) CT Abdomen 10/06/24 - Cyr catheter in good position. Small clot burden in bladder. ~Renal function 10/06/24 ~Cr 0.68. eGFR >60 Pt presented to [facility] ER 10/06/24 due to gross hematuria and clot retention. CT Abdomen 10/06/24 - Cyr catheter in good position. Small clot burden in bladder. Renal function 10/06/24 ~Cr 0.68. eGFR >60 Dr. Pereira consulted 10/08/24 ~has had two admissions over the past couple weeks for gross hematuria with clot retention. He was discharged from [facility] in [place] 1 day prior to admission to [facility]. Has not seen a urologist as an outpatient. S/p cysto, BL RPG, bladder fulguration, clot evacuation 10/06/24 ~neg for b.t. Grade 3 trabeculation. 20 Fr three-way Cyr catheter was placed. Urology consult note 10/10/24 Dr. Pereira ~hgb slightly improved over the past 2 days. Continue Finasteride 5mg qd and Cyr catheter upon discharge. Exchange Cyr [id number]. MRI of kidney to further eval complex cyst. Urology consult note 10/12/24 Dr. Portillo due to pt being concerned about why he was at [facility] vs [facility]. Dr. Portillo agreed with Dr. Pereira's plan. F/up as scheduled with urologist in the outpatient setting. Gross hematuria likely secondary to enlarged prostate. [facility] ER 10/28/24 due to gross hematuria/clot retention seen by [facility] in consult - bladder scan with Cyr in showed >488cc, Cyr was replaced with [address] Will cont q4wk Cyr exchanges with residential staff. 2. BPH with urinary obstruction (N40.1: Benign prostatic hyperplasia with lower urinary tract symptoms) S/p cysto, BL RPG, bladder fulguration, clot evacuation 10/06/24 ~prostate is enlarged with bilobar hyperplasia. 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 Patient has Cyr. Denies any no blood or clots in the catheter bag. No leaking around the catheter. [facility] has been changing his catheter. Pt states he is no longer having diarrhea which went on for weeks. Discussed TOV however may result in functional incontinence and pressure ulcers if residential staff does not take pt to void every 2-4 hours. Discussed the need for an outlet procedure in the future, would benefit from TURP. High risk due to cardiac status. Pt and his daughter agree to keep Cyr in place for the next few months. -Keep f/up scheduled 10/07/25 3. History of UTI (Z87.440: Personal history of urinary (tract) infections) UCx 10/09/24 - Klebsiella pneumoniae (ESBL) R to Cefazolin, Cefepime, Cefuroxime, Cipro, Levofloxacin, Nitrofurantoin, >100k Providencia stuartii. R to Cipro, Gentamicin, Levofloxacin, Tobramycin 04/28/25 - >100,000 cfu/ml Providencia stuartii, >100,000 cfu/ml Methicillin-Resistant Staphylococcus aureus MRSA Dolly (more content not included)... Normal [facility] Comment on above: Result Comment: Elec tronically Signed By: JAROCHO POST MD\.br\Date and Time Signed: 05/09/25 11:10 EDT\.br\Electronically Co-Signed By: Simin Covarrubias\.br\Date and Time Co-Signed: 05/09/25 10:50 EDT BMPon 04-28-2025 Anion gap [Moles/Vol] 15 mmol/L Normal 6-16 [facility] Comment on above: Performed By: #### 2 [id number] #### [facility] [address] [place] [address] BUN/Creat Ratio 32 No Units High 10-20 [facility] Comment on above: Performed By: #### 2 [id number] #### [facility] [address] [place] [address] Calcium [Mass/Vol] 9.3 mg/dL Normal 8.9-11.1 [facility] Comment on above: Performed By: #### 2 [id number] #### [facility] [address] [place] [address] Chloride [Moles/Vol] 103 mmol/L Normal 101-111 [facility] Comment on above: Performed By: #### 2 [id number] #### [facility] [address] [place] [address] CO2 [Moles/Vol] 22 mmol/L Normal 21-31 [facility] Comment on above: Performed By: #### 2 [id number] #### [facility] [address] [place] [address] Creatinine [Mass/Vol] 0.5 mg/dL Normal 0.5-1.3 [facility] Comment on above: Performed By: #### 2 [id number] #### [facility] [address] [place] [address] Glucose [Mass/Vol] 133 mg/dL Normal 55-199 [facility] Comment on above: Performed By: #### 2 [id number] #### [facility] [address] [place] [address] Potassium [Moles/Vol] 4.2 mmol/L Normal 3.5-5.3 [facility] Comment on above: Performed By: #### 2 [id number] #### [facility] [address] [place] [address] Sodium [Moles/Vol] 136 mmol/L Normal 135-145 [facility] Comment on above: Performed By: #### 2 [id number] #### [facility] [address] [place] [address] Urea nitrogen [Mass/Vol] 16 mg/dL Normal 5-21 [facility] Comment on above: Performed By: #### 2 [id number] #### [facility] [address] [place] [address] C Urineon 04-28-2025 Bacteria identified Cx Nom (U) Microbiology PROCEDURE: Urine Culture [R1] SOURCE: U Cath BODY SITE: COLLECTED DATE/TIME: 04/24/2025 21:08 EDT RECEIVED DATE/TIME: 04/24/2025 22:37 EDT START DATE/TIME: 04/24/2025 22:37 EDT FREE TEXT SOURCE: geo Mehta DO, Isai Mehta DO, Isai Gray FINAL REPORTS Final Report [] Verified Date/Time: 04/28/2025 08:49 EDT >100,000 cfu/ml Providencia stuartii >100,000 cfu/ml Methicillin-Resistant Staphylococcus aureus MRSA MRSA called to Dr. Woodruff 04/28/2025 08:49 CSS SUSCEPTIBILITY RESULTS ____ LEGEND: S=Susceptible, N/R=Not Reported, Blank=Data not available, or drug not advisable or tested, I=Intermediate, ESBL=Extended spectrum beta-lactamase, R=Resistant, TFG=Thymidine-dependent strain, FAHAD=Beta-lactamase positive, CAROLIN=mcg/m;(mg/L), S*=Predicted susceptible interp, R*=Predicted resistant interp ___ Prostu MRSA Antibiotic CAROLIN Dilutn CAROLIN Interp CAROLIN Dilutn CAROLIN Interp Amoxicillin/ >4/2 R* Clavulanate Ampicillin >16 R >8 R* Ampicillin/ 16/8 I 16/8 R* Sulbactam Cefazolin >16 R >16 R* Cefepime 8 S Ceftaroline 1 S Ceftazidime/ <=8 S Avibactam Ceftriaxone >2 R Cefuroxime >16 R Ciprofloxacin >2 R Daptomycin <=1 S Ertapenem <=0.5 S Gentamicin <=2 R* Levofloxacin >4 R Linezolid 4 S Meropenem <=1 S Nitrofurantoin >64 R <=32 S Oxacillin >2 R Penicillin >8 R* Piperacillin/ 32 I Tazobactam Rifampin <=1 S Tetracycline >8 R <=4 S Tobramycin 8 R* Trimethoprim/ <=2/38 S <=0.5/9.5 S Sulfa Vancomycin 1 S Performing Locations R1: This [facility] performed at: [facility], [address] [place] [address], [id number]- , [place], [facility] Comment on above: Performed By: #### 2 [id number] #### [facility] [address] [place] [id number] CHEMISTRYOrdered By: Lab ROP User on 04-28-2025 Glucose [Mass/Vol] 136 mg/dL High 55 - 99 mg/dL [facility] POC Subsection Comment on above: Result Comment: Noti fied RN/ POC Device SN [id number] Invalid Interpretation Code [facility] POC Subsection POC Username BRUCEINGRIS VARGHESE Invalid Interpretation Code [facility] POC Subsection Sodium [Moles/Vol] [id number] mmol/L Invalid Interpretation Code [facility] POC Subsection Glucose [Mass/Vol] 129 mg/dL High 55 - 99 mg/dL [facility] POC Subsection Comment on above: Result Comment: Jasvir pickering RN/ POC Device SN [id number] 1 Invalid Interpretation Code [facility] POC Subsection POC Username SPARKLE LYN Invalid Interpretation Code [facility] POC Subsection Sodium [Moles/Vol] [id number] mmol/L Invalid Interpretation Code [facility] POC Subsection CHEMISTRYOrdered By: SYSTEM SYSTEM on 04-28-2025 Anion gap [Moles/Vol] 15 mmol/L Normal 6 - 16 mEq/L Remisol Chem Calcium [Mass/Vol] 9.3 mg/dL Normal 8.9 - 11. 1 mg/dL [facility] Chem Chloride [Moles/Vol] 103 mmol/L Normal 101 - 1 11 mmol/L Remisol Chem CO2 [Moles/Vol] 22 mmol/L Normal 21 - 31 mmol/L Remisol Chem Creatinine [Mass/Vol] 0.5 mg/dL Normal 0.5 - 1.3 mg/dL Remisol Chem GFR/1.73 sq M.predicted MDRD (S/P/Bld) [Vol rate/Area] 109 mL/min/1.73 m2 Normal >=59mL/min /1.73 m2 Remisol Chem Glucose [Mass/Vol] 133 mg/dL Normal 55 - 199 mg/dL Rem[facility] Chem Potassium [Moles/Vol] 4.2 mmol/L Normal 3.5 - 5.3 mmol/L Remisol Chem Sodium [Moles/Vol] 136 mmol/L Normal 135 - 145 mmol/L Remisol Chem Urea nitrogen [Mass/Vol] 16 mg/dL Normal 5 - 21 mg/dL Remisol Chem Urea nitrogen/Creatinine [Mass ratio] 32 mg/mg High 10 - 20 Remisol Chem Vanco Tr 15 microgram/mL Normal 10 - 20 mcg/mL Remisol Chem Vanco Pk 24 microgram/mL Normal 20 - 40 mcg/mL Remisol Chem Capillary Glucose POCon 07-0 3-2025 Glucose [Mass/Vol] 136 mg/dL High 55-99 [facility] Comment on above: Result Comment: Jasvir pickering RN/ Performed By: #### 2 [id number] #### [facility] [address] [place] [address] Glucose [Mass/Vol] 129 mg/dL High 55-99 [facility] Comment on above: Result Comment: Jasvir pickering RN/ Performed By: #### 2 [id number] #### [facility] [address] [place] [address] Discharge Note-Nursingon Discharge Note-Nursing Discharge Note-Nu rsing [facility] arrived at 1422. Brief report was given. Patient's IV was removed. Patient was transferred safely in the stretcher and repositioned comfortably. Patient was not in distress on room air. Chronic 3-way cyr catheter was kept. Patient left with [facility] at 1435. This nurse called patient's daughter Bhumika to update her but unable to reach. Left a message in the voicemail. Patient was [facility] to [facility]. Normal [facility] Discharge Note-Nursing Discharge Note-Nu rsing VASHTI MASSEY :1955 Visit Date:04/24/2025 Inpatient Discharge Instructions Your Care Team Admitting Physician - Dionte COKER DO Consulting Physician - Eduar Lawrence MD Reason for Your Visit witnessed seizure by [facility] staff approximately 45 seconds Your Diagnosis Acute encephalopathy Catheter-associated urinary tract infection Seizure, grand mal Involuntary movements Minor head trauma Hypokalemia History of CVA in adulthood Pancytopenia Sinus bradycardia Hypertensive urgency Diabetes Hyperlipidemia Hyponatremia Chronic GERD Encounter for deep vein thrombosis (DVT) prophylaxis Seizure Urinary tract infection, site not specified Tests Performed CT Head or Brain w/o Contrast XR Chest Single View This Is Your Medications List [facility] Prescription (METOPROL SUC 50MG ER TAB) acetaminophen (acetaminophen 325 mg Tab) aspirin (aspirin 81 mg oral capsule) atorvastatin (atorvastatin 40 mg Tab) betamethasone-clotrimaz ole topical (betamethasone-clotrima zole Top 0.05%-1% Crm 15 gram) bisacodyl (Dulcolax 10 mg Supp) finasteride (finasteride 5 mg Tab) folic acid (folic acid 1 mg Tab) gabapentin (gabapentin 100 mg Cap) insulin glargine (Lantus Solostar Pen 100 units/mL subcutaneous solution) insulin lispro (Admelog SoloStar 100 units/mL injectable solution) insulin lispro (Admelog SoloStar 100 units/mL injectable solution) iron polysaccharide (Ferrex-150) lamotrigine levetiracetam (Keppra 500 mg Tab) loperamide (loperamide 2 mg Cap) magnesium hydroxide melatonin (melatonin 3 mg Tab) menthol topical (Biofreeze 5% topical pad) metoprolol (metoprolol succinate 50 mg ER Tab) pantoprazole (Pantoprazole [address] Tab) polyethylene glycol 3350 psyllium (Metamucil 3.4 g/5.2 g oral powder) sulfamethoxazole-trimet hoprim (Bactrim D.S. 800 mg-160 mg Tab) tamsulosin (tamsulosin 0.4 mg Cap) ticagrelor (Brilinta (ticagrelor) 90 mg oral tablet) trazodone (traZODONE 150 mg Tab) [Image Removed: STOP]Stop taking these medications buPROPion (buPROPion 150 mg ER Tab) cefuroxime (cefuroxime 500 mg oral tablet) magnesium oxide senna (senna 8.6 mg Tab) Procedure History History of operative procedure on knee, History of repair of musculotendinous cuff of shoulder. Discharge Vitals Temperature (Oral) 36.7 ???C Heart Rate (Apical) 69 Respiratory Rate 17 Blood Pressure 134/74 Weight 94.1 kg What to do next Instructions From Your Doctor Event Name Event Result Discharge Activity Activity as tolerated Discharge Diet(s) Calorie Controlled- 1800 Calorie Diet, Other: Drink at least 1.5 L of fluid per day Discharge Instructions Turn patient frequently in bed Previously Scheduled Follow-Up Appointments Friday 3:00 PM EST With: JAROCHO POST MD Where: [facility] [address] [place] [address]- New Follow Up Appointments after Discharge Follow Up with Follow-up with your urologist as soon as possible for Cyr catheter replacement When: Within 3 to 5 days Comments: Call for followup appointment Follow Up with ELEAZAR MAYORGA When: Within 2 to 3 days Where: [address] [facility] [address]- Business (1) Follow Up with Neurology When: Within 2 to 4 weeks Comments: Call [phone] for follow up appt Where: The Following Services Have Been Arranged for You Prof Skilled Services, Arranged - Nursing Medications What How Much When Why Instructions Next Dose New levetiracetam (Keppra 500 mg Tab) 1 Tablets By Mouth 2 times a day Seizure, grand mal Printed Prescription Tonight at 9:00 PM New sulfamethoxazole-trimet hoprim (Bactrim D.S. 800 mg-160 mg Tab) 1 Tablets By Mouth 2 times a day Catheter-associated urinary tract infection Duration: 5 Days Printed Prescription Begin tonight at 9:00 PM Changed iron polysaccharide (Ferrex-150) 150 Milligram By Mouth Every day Resume 04/29/2025 Unchanged acetaminophen (acetaminophen 325 mg Tab) 1 Tablets By Mouth Every 8 hours 500mg, Oral, PRN, 5 Refill(s) As needed Unchanged aspirin (aspirin 81 mg oral capsule) By Mouth Every 24 hours 04/29/2025 Unchanged atorvastatin (atorvastatin 40 mg Tab) 30 EA, 0 Refill(s), TAKE 1 TABLET BY MOUTH EVERY DAY 04/29/2025 Unchanged betamethasone-clotrimaz ole topical (betamethasone-clotrima zole Top 0.05%-1% Crm 15 gram) 1 Application Topical 2 times a day Resume tonight at 9:00 PM Unchanged bisacodyl (Dulcolax 10 mg Supp) 1 Suppositories By rectum Every day as needed for for constipation PRN As needed Unchanged finasteride (finasteride 5 mg Tab) 30 tab(s), 0 Refill(s) 04/29/2025 Unchanged folic acid (folic acid 1 mg Tab) 1 Tablets By Mouth Every day 04/29/2025 Unchanged gabapentin (gabapentin 100 mg Cap) Every day 90 EA, 0 Refill(s) 04/29/2025 Unchanged insu (more content not included)... Normal [facility] Extra Lav Microon 04-28-2025 WB Tube Collected Yes Invalid Interpretation Code [facility] Comment on above: Performed By: #### 1 [id number] #### [facility] Laboratory [address] [place] [address] Inpatient Clinical Summaryon 04-28-2025 Inpatient Clinical Summary Inpatient Clinical Summary [address] [address] Clinical Summary Person Information: Name: VASHTI MASSEY Age: 69 Years : 1955 Sex: Male PCP: ELEAZAR MAYORGA DO Marital Status: Single Race: White Ethnicity: Non- or Language: Kosovan Visit Id: Visit Reason: Seizure; SEIZURE Speciality: Acuity: Enc Type: Inpatient Med Service: Medical Arrival: 04/24/2025 20:07:12 Discharge: Dispo Type: Admitted as IP to this [facility] Address: [address] [place] [address] [id number] Provider Notes: Diagnosis: 2:Catheter-associated urinary tract infection; 3:Seizure, grand mal; 5:Minor head trauma; 7:History of CVA in adulthood; 8:Pancytopenia; 9:Sinus bradycardia; 10:Hypertensive urgency; 11:Diabetes; 12:Hyperlipidemia; 13:Hyponatremia; 14:Chronic GERD; 15:Encounter for deep vein thrombosis (DVT) prophylaxis; Urinary tract infection, site not specified Problems Active At risk for falls Anemia History of UTI Anticoagulated Complex renal cyst BPH with urinary obstruction Gross hematuria Ventricular tachycardia (08/12/2024) Thrombotic stroke (10/28/2023) Mixed hyperlipidemia (10/28/2023) 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) Essential hypertension (09/29/2024) Type 2 diabetes mellitus (10/28/2023) Cerebral atherosclerosis Chronic kidney disease Arthritis of right knee (12/30/2023) Smoking Status: Former Smoker Functional Status: Sensory Deficits: History of Falls: Mobility Assistance Prior to Admission: ADLs: Moderate assistance Current Level of Assistance for Self-Care/Mobility: Cognitive Status: Not oriented to place, Not oriented to time Allergies No Known Medication Allergies Measurements: Height: 93.7 cm Weight: 94.1 kg Blood Pressure: 134 mmHg / 74 mmHg BMI: 202.51 kg/m2 Procedures No Procedures Performed or Documented Immunizations No Immunizations Documented This Visit Final Med List: acetaminophen (acetaminophen 325 mg Tab) 1 Tablets By Mouth every 8 hours. 500mg, Oral, PRN, 5 Refill(s). aspirin (aspirin 81 mg oral capsule) By Mouth every 24 hours. atorvastatin (atorvastatin 40 mg Tab) 30 EA, 0 Refill(s), TAKE 1 TABLET BY MOUTH EVERY DAY. betamethasone-clotrimaz ole topical (betamethasone-clotrima zole Top 0.05%-1% Crm 15 gram) 1 Application Topical 2 times a day. bisacodyl (Dulcolax 10 mg Supp) 1 Suppositories By rectum every day as needed for constipation. PRN. finasteride (finasteride 5 mg Tab) 30 tab(s), 0 Refill(s). folic acid (folic acid 1 mg Tab) 1 Tablets By Mouth every day. gabapentin (gabapentin 100 mg Cap) 90 EA, 0 Refill(s). insulin glargine (Lantus Solostar Pen 100 units/mL subcutaneous solution) 15 mL, 0 Refill(s), ADMINISTER 15 UNITS UNDER THE SKIN AT BEDTIME. insulin lispro (Admelog SoloStar 100 units/mL injectable solution) 1 Units Subcutaneous. sliding scale before meals and at bedtime. insulin lispro (Admelog SoloStar 100 units/mL injectable solution) 3 mL, 0 Refill(s). iron polysaccharide (Ferrex-150) 150 Milligram By Mouth every day. lamotrigine 25 Milligram By Mouth. levetiracetam (Keppra 500 mg Tab) 1 Tablets By Mouth 2 times a day. Refills: 0. loperamide (loperamide 2 mg Cap) 1 Capsules By Mouth. magnesium hydroxide 400 Milligram. melatonin (melatonin 3 mg Tab) 3 Unknown, Oral, 1 Refill(s). menthol topical (Biofreeze 5% topical pad) Topical 3 times a day. metoprolol (metoprolol succinate 50 mg ER Tab) Oral, 1 Refill(s). Misc Prescription (METOPROL SUC 50MG ER TAB) 0. pantoprazole (Pantoprazole [address] Tab) 145 EA, 0 Refill(s), TABLET 1 TABLET BY MOUTH TWICE DAILY BEFORE MEALS FOR 50 DAYS THEN 1 EVERY MORNING THERAFTER. polyethylene glycol 3350 17 Unknown, Oral, 2 Refill(s). psyllium (Metamucil 3.4 g/5.2 g oral powder) 3.4 Gram By Mouth every day. sulfamethoxazole-trimet hoprim (Bactrim D.S. 800 mg-160 mg Tab) 1 Tablets By Mouth 2 times a day for 5 Days. Refills: 0. tamsulosin (tamsulosin 0.4 mg Cap) 30 cap(s), 0 Refill(s). ticagrelor (Brilinta (ticagrelor) 90 mg oral tablet) 28 tab(s), 0 Refill(s). trazodone (traZODONE 150 mg Tab) 0.5 Tablets By Mouth once a day (at bedtime). Care Team Members: Attending Physician: Dionte COKER DO Consulting Physician: Eduar Lawrence MD Referring Physician: Follow up: With: Address: When: Follow-up with your urologist as soon as possible for Cyr catheter replacement Within 3 to 5 days Comments: Call for followup appointment With: Address: When: ELEAZAR MAYORGA [facility] [id number] [facility] (1) Within 2 to 3 days With: Address: When: Neurology Within 2 to 4 weeks Comments: Call [phone] for follow up appt Type Location Start [facility] Office Visit [facility] [place] 10/07/2025 3:00 PM 10/07 (more content not included)... Normal [facility] Inpatient Patient Summaryon 04-28-2025 Inpatient Patient Summary Inpatient Patient Summary [address] [address] Patient Discharge Instructions PERSON INFORMATION Name: VASHTI MASSEY Date of : 1955 Current Date: 04/28/2025 10:29:30 PHYSICIANS Admitting Physician: Dionte COKER DO Primary Care Physician: ELEAZAR MAYORGA DO PCP Comment: Discharge Diagnosis: 2:Catheter-associated urinary tract infection; 3:Seizure, grand mal; 5:Minor head trauma; 7:History of CVA in adulthood; 8:Pancytopenia; 9:Sinus bradycardia; 10:Hypertensive urgency; 11:Diabetes; 12:Hyperlipidemia; 13:Hyponatremia; 14:Chronic GERD; 15:Encounter for deep vein thrombosis (DVT) prophylaxis; Urinary tract infection, site not specified Condition at Discharge: VASHTI Echeverria has been given the following list of follow-up instructions, prescriptions, and patient education materials: PATIENT FOLLOW-UP INFORMATION Diet: Calorie Controlled- 1800 Calorie Diet, Other: Drink at least 1.5 L of fluid per day Discharge Activity: Activity as tolerated Discharge Restrictions: Wound Care Instructions: Remove Your Dressing In Days Call Your Doctor For: IF UNABLE TO CONTACT YOUR PHYSICIAN AND YOU FEEL IT IS AN EMERGENCY, GO TO THE NEAREST EMERGENCY ROOM OR CALL 911 Home Treatment: Devices/Equipment: Wheelchair, Other: [facility]: Additional Instructions: Turn patient frequently in bed Primary Care Physician to provide the following pending test results: Follow up: With: Address: When: Follow-up with your urologist as soon as possible for Cyr catheter replacement Within 3 to 5 days Comments: Call for followup appointment With: Address: When: ELEAZAR MAYORGA [address] [place] [address] [facility] () Within 2 to 3 days With: Address: When: Neurology Within 2 to 4 weeks Comments: Call [phone] for follow up appt In the event that this physician does not participate in your insurance network, please consult with your insurance company to find a nearby participating provider. Type Location Start [facility] Office Visit [facility] JOSE [place] 10/07/2025 3:00 PM 10/07/2025 3:15 PM Confirmed Comment: BRYSON Souza RICHARD W, have received the attached patient education materials/instructions and have verbalized understanding: Patient Signature Date Clinican/Nurse Signature _ Date HERE ARE THE MEDICATION CHANGES THAT OCCURRED DURING YOUR HOSPITAL STAY New Medications Printed Prescriptions levetiracetam (Keppra 500 mg Tab) 1 Tablets By Mouth 2 times a day. Refills: 0. Last Dose: __Next Dose: __ sulfamethoxazole-trimet hoprim (Bactrim D.S. 800 mg-160 mg Tab) 1 Tablets By Mouth 2 times a day for 5 Days. Refills: 0. Last Dose: __Next Dose: __ Medications to Continue Taking That Have Changed Other Medications START: iron polysaccharide (Ferrex-150) 150 Milligram By Mouth every day. Last Dose: __Next Dose: __ STOP: iron polysaccharide (Ferrex-150 oral capsule) 1 Capsules By Mouth every day. Medications to Continue with No Changes Other Medications acetaminophen (acetaminophen 325 mg Tab) 1 Tablets By Mouth every 8 hours. 500mg, Oral, PRN, 5 Refill(s). Last Dose: __Next Dose: __ aspirin (aspirin 81 mg oral capsule) By Mouth every 24 hours. Last Dose: __Next Dose: __ atorvastatin (atorvastatin 40 mg Tab) 30 EA, 0 Refill(s), TAKE 1 TABLET BY MOUTH EVERY DAY., Responsible Provider: ELEAZAR MAYORGA Last Dose: __Next Dose: __ betamethasone-clotrimaz ole topical (betamethasone-clotrima zole Top 0.05%-1% Crm 15 gram) 1 Application Topical 2 times a day. Last Dose: __Next Dose: __ bisacodyl (Dulcolax 10 mg Supp) 1 Suppositories By rectum every day as needed for constipation. PRN. Last Dose: __Next Dose: __ finasteride (finasteride 5 mg Tab) 30 tab(s), 0 Refill(s)., Responsible Provider: Eleazar Mayorga Last Dose: __Next Dose: __ folic acid (folic acid 1 mg Tab) 1 Tablets By Mouth every day. Last Dose: __Next Dose: __ gabapentin (gabapentin 100 mg Cap) 90 EA, 0 Refill(s)., Responsible Provider: SUELLEN TYLER Last Dose: __Next Dose: __ insulin glargine (Lantus Solostar Pen 100 units/mL subcutaneous solution) 15 mL, 0 Refill(s), ADMINISTER 15 UNITS UNDER THE SKIN AT BEDTIME., Responsible Provider: ELEAZAR MAYORGA Last Dose: __Next Dose: __ insulin lispro (Adme (more content not included)... [facility] Interdisciplinary Note - Indra e Manageron 04-28-2025 Interdisciplinary Note - Prom[employer] Executive Producer Interdisciplinary Note - [employer] Executive Producer SHEMAR rounded with Dr Woodruff and plan is for patient to DC back to LTC at [facility] today. Attending states no IV ATB required at DC and facility updated and confirm they can accept today. CM called daughterBhumika at [phone] and notified of DC and transport time. CM followed up with patient at bedside who was resting and did not awake to calling out his name. IMM copy left at bedside. All in agreement with plan. Normal [facility] Comment on above: Result Comment: Elec tronically Signed By: Debo Plummer I\.br\Date and Time Signed: 04/28/25 10:44 EDT Vanco Peakon 04-28-2025 Vanco Pk 24 microgram/mL Normal 20-40 [facility] Comment on above: Order Comment: pleas e draw level one hour after infusion Performed By: #### 2 [id number] #### [facility] Laboratory [address] [place] [address] Vanco Troughon 04-28-2025 Vanco Tr 15 microgram/mL Normal 10-20 [facility] Comment on above: Order Comment: pleas e draw level one hour before dose Performed By: #### 2 [id number] #### [facility] Laboratory [address] [place] [address] eGFRon 04-28-2025 eGFR 109 mL/min/1.73 m2 Normal >=59 [facility] Comment on above: Performed By: #### 1 [id number] #### [facility] Laboratory [address] [place] [address] CHEMISTRYOrdered By: Lab ROP User on 04-27-2025 Glucose [Mass/Vol] 182 mg/dL High 55 - 99 mg/dL [facility] POC Subsection POC Device SN [id number] Invalid Interpretation Code [facility] POC Subsection POC Username HUNG BERNAL Invalid Interpretation Code [facility] POC Subsection Sodium [Moles/Vol] [id number] mmol/L Invalid Interpretation Code [facility] POC Subsection Capillary Glucose POCon Glucose [Mass/Vol] 182 mg/dL High 55-99 [facility] Comment on above: Performed By: #### 2 [id number] #### [facility] Laboratory [address] [place] [address] Glucose [Mass/Vol] 166 mg/dL High 55-99 [facility] Comment on above: Result Comment: Jasvir pickering RN/ Performed By: #### 2 [id number] #### [facility] Laboratory [address] [place] [address] Glucose [Mass/Vol] 181 mg/dL High 55-99 [facility] Comment on above: Result Comment: Jasvir pickering RN/ Performed By: #### 2 [id number] #### [facility] Laboratory [address] [place] [address] Glucose [Mass/Vol] 130 mg/dL High 55- [facility] Comment on above: Result Comment: Jasvir pickering RN/ Performed By: #### 2 [id number] #### [facility] Laboratory [address] [place] [address] EMS Documentationon 04-27-20 EMS Documentation Report Please click on link to see report Normal [facility] Comment on above: Result Comment: Miss ing Attachment - attachment exceeds size limitation [id number] Can be viewed in source system Interdisciplinary Note - Indra e Manageron 04-27-2025 Interdisciplinary Note - Prom[employer] Executive Producer Interdisciplinary Note - Promos Executive Producer CM rounded with Dr Woodruff and cultures back, patient started on IV ATB at this time. CM provided updates to [facility]. CM to follow for DC planning needs and DC date. Normal [facility] Comment on above: Result Comment: Elec tronically Signed By: Debo Plummer I\.vishal\Date and Time Signed: 04/27/25 11:18 EDT Capillary Glucose POCon Glucose [Mass/Vol] 195 mg/dL High 55-99 [facility] Comment on above: Result Comment: Jasvir pickering RN/ Performed By: #### 2 [id number] #### [facility] Laboratory [address] [place] [address] Glucose [Mass/Vol] 125 mg/dL High 55-99 [facility] Comment on above: Result Comment: Jasvir pickering RN/ Performed By: #### 2 [id number] #### [facility] Laboratory [address] [place] [address] Glucose [Mass/Vol] 156 mg/dL High 55-99 [facility] Comment on above: Result Comment: Jasvir pickering RN/ Performed By: #### 2 [id number] #### [facility] Laboratory [address] [place] [address] Glucose [Mass/Vol] 182 mg/dL High 55-99 [facility] Comment on above: Result Comment: Jasvir pickering RN/ Performed By: #### 2 [id number] #### [facility] Laboratory [address] [place] [address] Interdisciplinary Note - Indra e Manageron 04-26-2025 Interdisciplinary Note - Prom[employer] Executive Producer Interdisciplinary Note - Prom[employer] Executive Producer Plan remains to return to LTC at [facility] when medically stable. CM rounded with Dr Woodruff and DC pending urine culture. Possible DC today or tomorrow. Facility updated. IMM reviewed. All in agreement with DC plan. Normal [facility] Comment on above: Result Comment: Elec tronically Signed By: Debo Plummer I\.vishal\Date and Time Signed: 04/26/25 10:27 EDT BMPon 04-25-2025 Anion gap [Moles/Vol] 11 mmol/L Normal 6-16 [facility] Comment on above: Performed By: #### 2 [id number] #### [facility] Laboratory [address] [place] [address] BUN/Creat Ratio 32 No Units High 10-20 [facility] Comment on above: Performed By: #### 2 [id number] #### [facility] Laboratory [address] [place] [address] Calcium [Mass/Vol] 9.3 mg/dL Normal 8.9-11.1 [facility] Comment on above: Performed By: #### 2 [id number] #### [facility] Laboratory [address] [place] [address] Chloride [Moles/Vol] 98 mmol/L Low 101-111 [facility] Comment on above: Performed By: #### 2 [id number] #### [facility] Laboratory [address] [place] [address] CO2 [Moles/Vol] 29 mmol/L Normal 21-31 [facility] Comment on above: Performed By: #### 2 [id number] #### [facility] Laboratory [address] [place] [address] Creatinine [Mass/Vol] 0.5 mg/dL Normal 0.5-1.3 [facility] Comment on above: Performed By: #### 2 [id number] #### [facility] Laboratory [address] [place] [address] Glucose [Mass/Vol] 177 mg/dL Normal 55-199 [facility] Comment on above: Performed By: #### 2 [id number] #### [facility] Laboratory [address] [place] [address] Potassium [Moles/Vol] 3.7 mmol/L Normal 3.5-5.3 [facility] Comment on above: Performed By: #### 2 [id number] #### [facility] Laboratory [address] [place] [address] Sodium [Moles/Vol] 134 mmol/L Low 135-145 [facility] Comment on above: Performed By: #### 2 [id number] #### [facility] Laboratory [address] [place] [address] Urea nitrogen [Mass/Vol] 16 mg/dL Normal 5-21 [facility] Comment on above: Performed By: #### 2 [id number] #### [facility] Laboratory [address] [place] [address] CBC w/ Auto Diffon 5 Anisocytosis Ql (Bld) PRESENT Invalid Interpretation [facility] Comment on above: Performed By: #### 2 [id number] #### [facility] [address] [place] [address] Basophil Absolute 0.1 E9/L Normal 0.0-0.2 [facility] Comment on above: Performed By: #### 2 [id number] #### [facility] [address] [place] [address] Basophils/100 WBC (Bld) 1.5 % Normal 0.0-2.0 [facility] Comment on above: Performed By: #### 2 [id number] #### [facility] Laboratory [address] [place] [address] Elliptocytes PRESENT Invalid Interpretation Code [facility] Comment on above: Performed By: #### 2 [id number] #### [facility] Laboratory [address] [place] [address] Eos Absolute 0.1 E9/L Normal 0.0-0.5 [facility] Comment on above: Performed By: #### 2 [id number] #### [facility] Laboratory [address] [place] [address] Eosinophils/100 WBC (Bld) 1.6 % Normal 0.0-8.0 [facility] Comment on above: Performed By: #### 2 [id number] #### [facility] Laboratory [address] [place] [address] Erythrocyte distribution width (RBC) [Ratio] 20.5 % High 10.9-14.2 [facility] Comment on above: Performed By: #### 2 [id number] #### [facility] [address] [place] [address] Hematocrit (Bld) [Volume fraction] 34.2 % Low 37.7-49.0 [facility] Comment on above: Performed By: #### 2 [id number] #### [facility] Laboratory [address] [place] [address] Hemoglobin (Bld) [Mass/Vol] 11.5 g/dL Low 13.5-17.5 [facility] Comment on above: Performed By: #### 2 [id number] #### [facility] Laboratory [address] [place] [address] Hypochromasia PRESENT Invalid Interpretation Code [facility] Comment on above: Performed By: #### 2 [id number] #### [facility] Laboratory [address] [place] [address] Lymph Absolute 1.4 E9/L Normal 1.0-4.0 [facility] Comment on above: Performed By: #### 2 [id number] #### [facility] Laboratory [address] [place] [address] Lymphocytes/100 WBC (Bld) 35.5 % Normal 14.0-50.0 [facility] Comment on above: Performed By: #### 2 [id number] #### [facility] Laboratory [address] [place] [address] MCH (RBC) [Entitic mass] 24.0 pg Low 27.0-34.0 [facility] [place] Comment on above: Performed By: #### 2 [id number] #### [facility] [address] [place] [address] MCHC (RBC) [Mass/Vol] 33.6 g/dL Normal 31.4-36.0 [facility] Comment on above: Performed By: #### 2 [id number] #### [facility] [place] [facility] [address] [place] [address] MCV (RBC) [Entitic vol] 71.4 fL Low 80.0-100.0 [facility] [place] Comment on above: Performed By: #### 2 [id number] #### [facility] [place] [facility] [address] [place] [address] Microcyte PRESENT Invalid Interpretation Code [facility] [place] Comment on above: Performed By: #### 2 [id number] #### [facility] [place] [facility] [address] [place] [address] Crawford Absolute 0.3 E9/L Normal 0.2-1.0 [facility] Comment on above: Performed By: #### 2 [id number] #### [facility] [place] [facility] [address] [place] [address] Monocytes/100 WBC (Bld) 7.1 % Normal 4.0-14.0 [facility] [place] Comment on above: Performed By: #### 2 [id number] #### [facility] [place] [facility] [address] [place] [address] Neutro Absolute 2.2 E9/L Normal 2.0-7.5 [facility] Comment on above: Performed By: #### 2 [id number] #### [facility] [place] [facility] [address] [place] [address] Neutro Auto 54.3 % Normal 36.0-75.0 [facility] [place] Comment on above: Performed By: #### 2 [id number] #### [facility] [place] [facility] [address] [place] [address] Platelet 241.0 E9/L Normal 150.0-500. 0 [facility] [place] Comment on above: Performed By: #### 2 [id number] #### [facility] [place] [facility] [address] [place] [address] Platelet mean volume (Bld) [Entitic vol] 6.8 fL Normal 6.4-10.8 [facility] [place] Comment on above: Performed By: #### 2 [id number] #### [facility] [place] [facility] [address] [place] [address] RBC 4.8 E12/L Normal 4.3-5.9 [facility] [place] Comment on above: Performed By: #### 2 [id number] #### [facility] [place] [facility] [address] [place] [id number] RBC morphology finding Nom (Bld) SEE MORPHOLOGY Invalid Interpretation Code [facility] [place] Comment on above: Performed By: #### 2 [id number] #### [facility] [place] [facility] [address] [place] [address] WBC 4.0 E9/L Normal 4.0-11.0 [facility] [place] Comment on above: Performed By: #### 2 [id number] #### [facility] [place] [facility] [address] [place] [address] CHEMISTRYOrdered By: SYSTEM SYSTEM on 04-25-2025 Anion gap [Moles/Vol] 11 mmol/L Normal 6 - 16 mEq/L Remisol Chem Calcium [Mass/Vol] 9.3 mg/dL Normal 8.9 - 11. 1 mg/dL Remisol Chem Chloride [Moles/Vol] 98 mmol/L Low 101 - 1 11 mmol/L Remisol Chem CO2 [Moles/Vol] 29 mmol/L Normal 21 - 31 mmol/L Remisol Chem Cobalamin (Vitamin B12) [Mass/Vol] 374 pg/mL Normal 50 - 1500 pg/mL Remisol Chem Creatinine [Mass/Vol] 0.5 mg/dL Normal 0.5 - 1.3 mg/dL Remisol Chem GFR/1.73 sq M.predicted MDRD (S/P/Bld) [Vol rate/Area] 109 mL/min/1.73 m2 Normal >=59mL/min /1.73 m2 Remisol Chem Glucose [Mass/Vol] 177 mg/dL Normal 55 - 199 mg/dL Remisol Chem Lactate [Moles/Vol] 1.0 mmol/L Normal 0.5 - 2. 2 mmol/L Remisol Chem Potassium [Moles/Vol] 3.7 mmol/L Normal 3.5 - 5.3 mmol/L Remisol Chem Sodium [Moles/Vol] 134 mmol/L Low 135 - 145 mmol/L Remisol Chem TSH Qn 1.70 m[IU]/L Normal 0.34 - 5.60 mcIU/mL Remisol Chem Urea nitrogen [Mass/Vol] 16 mg/dL Normal 5 - 21 mg/dL Remisol Chem Urea nitrogen/Creatinine [Mass ratio] 32 mg/mg High 10 - [address] Head or Brain w/o Contras ton 04-25-2025 CT Head or Brain w/o Contrast Exam Date/Time: 04/24/2025 20:58 EDT Reason for Exam: Delirium/ Seizure;Altered mental status Report IMPRESSION: NO ACUTE INTRACRANIAL PROCESS. EXAMINATION: CT of the brain without contrast HISTORY: Altered mental status. Seizure. COMPARISON: None available TECHNIQUE: Multiple axial images were obtained of the brain from the skull base through the vertex. Multiplanar reformats were obtained. FINDINGS: Prominence of the sulci and ventricles compatible with mild generalized parenchymal volume loss. Alba-white matter differentiation is preserved. Areas of bilateral supratentorial white matter hypoattenuation are nonspecific but most likely due to chronic small vessel ischemic changes in a patient of this age. Right frontal, parietal, and temporal lobe encephalomalacia. No acute hemorrhage or abnormal extra-axial fluid collection. Basal cisterns are patent. No mass effect or midline shift. Mild paranasal sinus mucosal thickening. The mastoid air cells are clear. Small right frontal scalp hematoma Calvarium is intact. All CT scans at this facility use dose modulation, iterative reconstruction, and/or weight based dosing when appropriate to reduce radiation dose to as low as reasonably achievable. Ordering Provider: Isai Mehta FINAL REPORT Dictated: 04/25/2025 8:35 am Yudelka Mendenhall DO Signed (Electronic Signature): 04/25/2025 8:35 am Signed by: Yudelka Mendenhall DO Transcribed by: LESTER Technologist: GUILLAUME Beltrán [facility] Capillary Glucose POCon 03-29 Glucose [Mass/Vol] 151 mg/dL High 55-99 [facility] [place] Comment on above: Result Comment: Jasvir MESA Performed By: #### 2 [id number] #### [facility] [place] [facility] [address] [place] [address] Glucose [Mass/Vol] 166 mg/dL High 55-99 [facility] [place] Comment on above: Result Comment: Jasvir MESA Performed By: #### 2 [id number] #### [facility] [place] [facility] [address] [place] [address] Glucose [Mass/Vol] 155 mg/dL High 55-99 [facility] [place] Comment on above: Result Comment: Jasvir MESA Performed By: #### 2 [id number] #### [facility] [place] [facility] [address] [place] [address] Glucose [Mass/Vol] 179 mg/dL High 55-99 [facility] [place] Comment on above: Result Comment: Jasvir MESA Performed By: #### 2 [id number] #### [facility] [place] [facility] [address] [place] [address] ED Clinical Summaryon 2024 ED Clinical Summary ED Clinical Summary [address] [address] ED Clinical Summary Person Information Name: VASHTI MASSEY [facility] Age: 69 Years : 1955 Sex: Male Language: Kosovan PCP: ELEAZAR MAYORGA DO Marital Status: Single Visit Id: Visit Reason: Seizure; SEIZURE Speciality: Acuity: 2 Enc Type: Inpatient Med Service: Medical Arrival: 04/24/2025 20:07:12 Discharge: LOS: 000 05:33 Checkin: 04/24/2025 20:07:12 Checkout: 04/25/2025 01:40:21 Dispo Type: Admitted as IP to this [facility] EVENTS: Event Name Event Status Request Date/Time Start Date/Time Complete Date/Time Arrive Complete 04/24/2025 20:07:12 04/24/2025 20:07:12 04/24/2025 20:07:12 Document Home Meds Request 04/24/2025 20:07:12 Triage Complete 04/24/2025 20:07:12 04/24/2025 20:15:54 04/24/2025 20:15:54 Bed Assign Complete 04/24/2025 20:07:12 04/24/2025 20:07:12 04/24/2025 20:07:12 Dr Exam Complete 04/24/2025 20:07:12 04/24/2025 20:08:30 04/24/2025 20:08:30 RN Exam Complete 04/24/2025 20:07:12 04/24/2025 20:23:00 04/24/2025 20:23:00 Registration Complete 04/24/2025 20:08:30 04/24/2025 20:49:18 04/24/2025 20:49:18 EKG Complete 04/24/2025 20:10:08 04/24/2025 20:13:53 Pending Labs Inlab 04/24/2025 20:10:08 Lab Inlab 04/24/2025 20:10:08 Patient Care Complete 04/24/2025 20:10:08 04/24/2025 22:25:15 X-Ray Complete 04/24/2025 20:10:08 04/24/2025 20:38:19 04/24/2025 20:39:10 CT Complete 04/24/2025 20:10:08 04/24/2025 20:40:00 04/24/2025 20:58:42 RT Request 04/24/2025 20:10:08 Fall Risk Request 04/24/2025 20:23:01 Wet Read Request 04/24/2025 20:39:10 Reg Complete Request 04/24/2025 20:49:18 Reg Bed Request Complete 04/24/2025 20:49:18 04/24/2025 20:49:18 04/24/2025 20:49:18 Pending Labs Complete 04/24/2025 21:15:57 04/24/2025 21:15:57 04/24/2025 21:42:15 Lab Complete 04/24/2025 21:15:57 04/24/2025 21:15:57 04/24/2025 21:42:15 Pending Labs Complete 04/24/2025 21:24:38 04/24/2025 21:24:38 04/24/2025 21:24:39 Pending Labs Request 04/24/2025 21:40:37 Lab Request 04/24/2025 21:40:37 Pending Labs Inlab 04/24/2025 21:43:11 04/24/2025 21:43:11 Lab Inlab 04/24/2025 21:43:11 04/24/2025 21:43:11 Meds Admin Complete 04/24/2025 22:21:02 04/24/2025 23:03:00 Meds Admin Complete 04/24/2025 23:31:14 04/24/2025 23:50:38 Consult Request 04/25/2025 00:13:31 Hospitalist Consult Request 04/25/2025 00:13:32 Admit Request 04/25/2025 00:23:12 Patient Care Request 04/25/2025 00:23:12 Patient Care Request 04/25/2025 00:23:14 Patient Care Request 04/25/2025 00:23:14 Patient Care Request 04/25/2025 00:23:14 Patient Care Request 04/25/2025 00:23:14 Medicare Form Request 04/25/2025 00:23:15 Patient Care Request 04/25/2025 00:23:16 Patient Care Request 04/25/2025 00:23:16 AD[address]: [address] [facility] [phone] PHYS DOC NOTES: MEDICAL INFORMATION: Prescriptions Given: Medications to Continue with No Changes Other Medications acetaminophen (acetaminophen 325 mg Tab) 1 Tablets By Mouth every 8 hours. 500mg, Oral, PRN, 5 Refill(s). aspirin (aspirin 81 mg oral capsule) By Mouth every 24 hours. atorvastatin (atorvastatin 40 mg Tab) 30 EA, 0 Refill(s), TAKE 1 TABLET BY MOUTH EVERY DAY. betamethasone-clotrimaz ole topical (betamethasone-clotrima zole Top 0.05%-1% Crm 15 gram) 1 Application Topical 2 times a day. bisacodyl (Dulcolax 10 mg Supp) 1 Suppositories By rectum every day as needed for constipation. PRN. buPROPion (buPROPion 150 mg ER Tab) 1 Tablets By Mouth every day. cefuroxime (cefuroxime 500 mg oral tablet) Oral, 0 Refill(s). finasteride (finasteride 5 mg Tab) 30 tab(s), 0 Refill(s). folic acid (folic acid 1 mg Tab) 1 Tablets By Mouth every day. gabapentin (gabapentin 100 mg Cap) 90 EA, 0 Refill(s). insulin glargine (Lantus Solostar Pen 100 units/mL subcutaneous solution) 15 mL, 0 Refill(s), ADMINISTER 15 UNITS UNDER THE SKIN AT BEDTIME. insulin lispro (Admelog SoloStar 100 units/mL injectable solution) 1 Units Subcutaneous. sliding scale before meals and at bedtime. insulin lispro (Admelog SoloStar 100 units/mL injectable solution) 3 mL, 0 Refill(s). iron polysaccharide (Ferrex-150 oral capsule) 1 Capsules By Mouth every day. iron polysaccharide (Ferrex-150) 150 Milligram By Mouth every day. lamotrigine 25 Milligram By Mouth. loperamide (loperamide 2 mg Cap) 1 Capsules By Mouth. magnesium hydroxide 400 Milligram. magnesium oxide 400 Unknown, Oral, 0 Refill(s). melatonin (melatonin 3 mg Tab) 3 Unknown, Oral, 1 Refill(s). menthol topical (Biofreeze 5% topical pad) Topical 3 times a day. metoprolol (metoprolol succinate 50 mg ER Tab) Oral, 1 Refill(s). Misc Prescription (METOPROL SUC 50MG ER TAB) 0. pantoprazole (Pantoprazole [address] Tab) 145 EA, 0 Refill(s), TABLET 1 TABLET BY MOUTH TWICE DAILY BEFORE MEALS FOR 50 DAYS THEN 1 EVERY MORNING THERAFTER. polyethylene glycol 3350 17 Unknown, Oral, 2 Refill(s). psyllium (Metamucil 3.4 g/5.2 g (more content not included)... Normal [facility] ED Note-Physicianon 04-25-20 ED Note-Physician ED Note-Physician Basic Information Time Seen: Tyson Isai M. 04/24/2025 20:08 History of Present Illness 69-year-old male to the emergency department with concern for altered mental status/seizure. Patient is a resident at [facility]. He has been noted to have some falls over the last few days. He was seen at [facility] yesterday per EMS for a fall and had CT imaging performed which was normal. Patient has been confused throughout the day today. He is normally alert and oriented x 4 although near flaccid on his left side due to a previous stroke per report. EMS was told that the patient had what appeared to be a 45-second seizure today. He was confused afterwards. He has no history of seizure. Review of Systems Unable to obtain, patient does not answer review of system questions. Physical Exam VITALS: I have reviewed the triage vital signs. GENERAL: Well developed, well appearing adult in no acute distress. NEURO: Alert and oriented. Moves all extremities. Face is symmetric and expressive. Left upper and lower extremity are weak. Normal strength in the right upper and right lower extremity. Sensation intact. No ataxia in the right sided limbs. EYES: PERRL. No scleral icterus or conjunctival injection. No discharge. HENT: Normocephalic, atraumatic. Hearing is grossly intact. Nares grossly patent and without discharge. Mucous membranes moist. NECK: No JVD. Patient moves neck without restriction. CARDIO: Rhythm regular. Normal rate. No murmur, rub, or gallop. Pulses equal bilaterally in the upper and lower extremity. No lower extremity edema. PULM: Lungs clear to auscultation in all easton. No wheezes, rales, or rhonchi. No conversational dyspnea. No splinting, stridor, or accessory muscle use. GI/: Abdomen is soft and non-tender. Normoactive bowel sounds. EXTREMITIES: Symmetric muscle bulk. No joint swelling. No clubbing, cyanosis, or deformity. SKIN: Warm and dry. Normal turgor. No rash or lesions appreciated. PSYCH: Mood, affect, and interaction is appropriate to the setting. Medical Decision Making 69-year-old male to the emergency department chief complaint of altered mental status and possible seizure. Hypertensive, otherwise stable vitals. The patient is afebrile. Based on EMS report this does not appear to be any new focal deficits on the patient's exam today other than his confusion. CT head, infectious workup are ordered. He does have a chronic Cyr catheter with a large amount of sediment, thick purulent appearing urine. His last known normal is unknown. CT head without acute findings today. Lab work reviewed and noted. He does have a significant urinary tract infection. Rocephin was initiated. Will admit the patient to the hospital for further treatment of his altered mental status. Assessment/Plan Altered mental status (R41.82: Altered mental status, unspecified) Orders: Blood Culture Charcoal Blood Culture Charcoal CBC w/ Auto Diff Comprehensive Metabolic Panel Continuous Pulse Oximetry CT Head or Brain w/o Contrast ECG 12 Lead Adult ED Cardiac Monitoring Lactic Acid Lactic Acid Oxygen Therapy PT & PTT Saline Lock Insert Troponin UA with Cult Rflx XR Chest Single View Disposition Plan Patient Discharge Condition Stable Discharge Disposition Admitted Discharge Prescription List Prescriptions No active prescription medications Follow-up No qualifying data available Problem List/Past Medical History Ongoing Anemia Anticoagulated Arthritis of right knee At risk for falls BPH with urinary obstruction Cerebral atherosclerosis Chronic kidney disease Complex renal cyst Essential hypertension Gross hematuria Hemiplegia of left nondominant side History of UTI Mixed hyperlipidemia Thrombotic stroke Type 2 diabetes mellitus Ventricular tachycardia Historical No qualifying data Procedure/Surgical History History of operative procedure on knee, History of repair of musculotendinous cuff of shoulder. Medications Inpatient No active inpatient medications Home acetaminophen 325 mg Tab Admelog SoloStar 100 units/mL injectable solution aspirin 81 mg oral capsule, Oral, q24hr atorvastatin 40 mg Tab Brilinta (ticagrelor) 90 mg oral tablet buPROPion 150 mg ER Tab, 150 mg= 1 tab(s), Oral, Daily cefuroxime 500 mg oral tablet Ferrex-150 oral capsule, 150 mg= 1 cap(s), Oral, Daily finasteride 5 mg Tab folic acid 1 mg Tab, 1 mg= 1 tab(s), Oral, Daily gabapentin 100 mg Cap lamotrigine, 25 mg, Oral Lantus Solostar Pen 100 units/mL subcutaneous solution loperamide 2 mg Cap, 2 mg= 1 cap(s), Oral magnesium hydroxide, 400 mg magnesium oxide melatonin 3 mg Tab METOPROL SUC 50MG ER TAB, 0 metoprolol succinate 50 mg ER Tab Pantoprazole [address] Tab polyethylene glycol 3350 senna 8.6 mg Tab tamsulosin 0.4 mg Cap traZODONE 150 mg Tab, 75 mg= 0.5 tab(s), Oral, Once a day (at bedtime) Allergies No Known (more content not included)... Normal [facility] Comment on above: Result Comment: Elec tronically Signed By: Isai Mehta DO\.br\Date and Time Signed: 04/25/25 01:12 EDT ED Patient Education Noteon 04-25-2025 ED Patient Education Note ED Patient Education Note Normal [facility] ED Patient Summaryon 025 ED Patient Summary ED Patient Summary [place] [id number] Patient Discharge Instructions Person Information Name: VASHTI MASSEY Age: 69 Years Arrival Date: 04/24/2025 20:07:12 Discharge Diagnosis: Altered mental status Primary Care Physician: ELEAZAR MAYORGA DO Provider Information Primary Provider: Isai Mehta DO Advanced Hardware Design Engineer:Rock The exam and treatment you received in the Emergency Department were for an urgent problem and are not intended as complete care. It is important that you follow up with a doctor, nurse practitioner, or physician???s transport assistant for ongoing care. If your symptoms become worse or you do not improve as expected and you are unable to reach your usual health care provider, you should return to the Emergency Department. We are available 24 hours a day. VASHTI MASSEY has been given the following list of patient education materials, prescriptions and follow-up instructions: Follow-up Instructions: In the event that this physician does not participate in your insurance network, please consult with your insurance company to find a nearby participating provider. Patient Education Materials: A MESSAGE TO ALL PATIENTS REGARDING OPIOIDS PRESCRIPTION OPIOIDS: WHAT YOU NEED TO KNOW Prescription opioids can be used to help relieve nabcwfwj-nt-iwicwo pain and are often prescribed following a surgery or injury, or for certain health conditions. These medications can be an important part of the treatment but also come with serious risks. It is important to work with your healthcare provider to make sure you are getting the safest, most effective care. WHAT ARE THE RISKS AND SIDE EFFECTS OF OPIOID USE? Prescription opioids carry serious risks of addiction and overdose, especially with prolonged use. An opioid overdose, often marked by slowed breathing, can cause sudden . The use of prescription opioids can have a number of side effects as well, even when taken as directed: ??? Tolerance???meaning you might need to take more of the medication for the same pain relief ??? Physical dependence???meaning you have symptoms of withdrawal when a medication is stopped ??? Increased sensitivity to pain ??? Constipation ??? Nausea, vomiting, and dry mouth ??? Sleepiness and dizziness ??? Confusion ??? Depression ??? Low levels of testosterone that can result in lower sex drive, energy, and strength ??? Itching and sweating RISKS ARE GREATER WITH: ??? History of drug misuse, substance use disorder, or overdose ??? Mental health conditions (such as depression or anxiety) ??? Sleep apnea ??? Older age (65 years and older) ??? Avoid alcohol while taking prescription opioids. Also, unless specifically advised by your health care provider, medications to avoid include: ??? Benzodiazepines (such as Xanax or Valium) ??? Muscle relaxants (such as Soma or Flexeril) ??? Hypnotics (such as Ambien or Lunesta) ??? Other prescription opioids KNOW YOUR OPTIONS Talk to your health care provider about ways to manage your pain that don???t involve prescription opioids. Some of these options may actually work better and have fewer risks and side effects. Options may include: ??? Pain relievers such as acetaminophen, ibuprofen, and naproxen ??? Some medication that are also used for depression or seizures ??? Physical therapy and exercise ??? Cognitive behavioral therapy, a psychological, goal-directed approach, in which patients learn how to modify physical, behavioral, and emotional triggers of pain and stress. IF YOU ARE PRESCRIBED OPIOIDS FOR PAIN: ??? Never take opioids in greater amounts or more often than prescribed. ??? Follow up with your primary health care provider. o Work together to create a plan on how to manage your pain. o Talk about ways to help manage your pain that don???t involve prescription opioids. o Talk about any and all concerns and side effects. ??? Help prevent misuse and abuse o Never sell or share prescription opioids. o Never use another person???s prescription opioids. ??? Store prescription opioids in a secure place and out of reach of others (this may include visitors, children, friends, and family). ??? Safely dispose of unused prescription opioids: Find your community drug take-back program or your pharmacy mail-back program, or flush them down the toilet, following guidance from the Food and Drug Administration (www.fda.gov/Drugs/Reso urcesForYou). ??? Visit www.cdc.gov/drugoverdos e to learn about the risks of opioids abuse and overdose. ??? If you believe you may be struggling with addiction, tell your health healthcare manager and ask for guidance or call [facility]???S National Helpline at 8-381-159-QWRH. d Source: [place] Department of Health and Human Services/Center for Disease Control & (more content not included)... Normal [facility] HEMATOLOGYOrdered By: SYSTEM SYSTEM on 04-25-2025 Anisocytosis Ql (Bld) PRESENT *NA* (04/25/25 6:17 AM) Invalid Interpretation Code Remisol Heme Basophils/100 WBC (Bld) 1.5 % Normal 0.0 - 2.0 % Remisol Heme Basophils/Leukocytes Auto (Bld) [Pure # fraction] 0.1 E9/L Normal 0.0 - 0.2 E9/L Remisol Heme Elliptocytes LM Ql (Bld) PRESENT *NA* (04/25/25 6:17 AM) Invalid Interpretation Code Remisol Heme Eosinophils (Bld) [#/Vol] 0.1 E9/L Normal 0.0 - 0.5 E9/L Remisol Heme Eosinophils/100 WBC (Bld) 1.6 % Normal 0.0 - 8.0 % Remisol Heme Erythrocyte distribution width (RBC) [Ratio] 20.5 % High 10.9 - 14.2 % Remisol Heme Hematocrit (Bld) [Volume fraction] 34.2 % Low 37.7 - 49.0 % Remisol Heme Hemoglobin (Bld) [Mass/Vol] 11.5 g/dL Low 13.5 - 17.5 gm/dL Remisol Heme Hypochromia Auto Ql (Bld) PRESENT *NA* (04/25/25 6:17 AM) Invalid Interpretation Code Remisol Heme Lymphocytes (Bld) [#/Vol] 1.4 E9/L Normal 1.0 - 4.0 E9/L Remisol Heme Lymphocytes/100 WBC (Bld) 35.5 % Normal 14.0 - 50.0 % Remisol Heme MCH (RBC) [Entitic mass] 24.0 pg Low 27.0 - 34.0 pg Remisol Heme MCHC (RBC) [Mass/Vol] 33.6 g/dL Normal 31.4 - 36.0 gm/dL Remisol Heme MCV (RBC) [Entitic vol] 71.4 fL Low 80.0 - 100.0 fL Remisol Heme Microcytes Ql (Bld) PRESENT *NA* (04/25/25 6:17 AM) Invalid Interpretation Code Remisol Heme Monocytes (Bld) [#/Vol] 0.3 E9/L Normal 0.2 - 1.0 E9/L Remisol Heme Monocytes/100 WBC (Bld) 7.1 % Normal 4.0 - 14.0 % Remisol Heme Neutrophils (Bld) [#/Vol] 2.2 E9/L Normal 2.0 - 7.5 E9/L Remisol Heme Neutrophils/100 WBC (Bld) 54.3 % Normal 36.0 - 75.0 % Remisol Heme Platelet mean volume (Bld) [Entitic vol] 6.8 fL Normal 6.4 - 10.8 fL Remisol Heme Platelets (Bld) [#/Vol] 241.0 E9/L Normal 150.0 - 500.0 E9/L Remisol Heme RBC (Bld) [#/Vol] 4.8 E12/L Normal 4.3 - 5.9 E12/L Remisol Heme RBC size Nom (Bld) SEE MORPHOLOGY *NA* (04/25/25 6:17 AM) Invalid Interpretation Code Remisol Heme WBC corrected for nucl RBC Auto (Bld) [#/Vol] 4.0 E9/L Normal 4.0 - 11.0 E9/L Remisol Heme Interdisciplinary Note - Indra e Manageron 04-25-2025 Interdisciplinary Note - Promos Executive Producer Interdisciplinary Note - Promos Executive Producer CM met with patient at bedside. 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 CM made referral to [facility] and they can accept back. Patient states he has been there almost a year and they assist with all ADLs, meds and he uses [facility] for transport. 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 Daughter is Bhumika [phone]. CM reviewed IMM at bedside and patient gave verbal consent. Copy on chart and copy given to patient. Dr woodruff is attending and Neuro on consult. CM to follow. Normal [facility] [facility] Comment on above: Result Comment: Elec tronically Signed By: Debo Plummer I\.vishal\Date and Time Signed: 04/25/25 11:10 EDT Lactic Acidon 04-25-2025 Lactic Acid Lvl 1.0 mmol/L Normal 0.5-2.2 [facility] Comment on above: Order Comment: Order added by EKS Rule. (FT_LACTIC_ACID_REFLEX) Adds reflex Lactic Acid 4 hours after initial if result is greater than or equal to 2.0. Performed By: #### 2 [id number] #### [facility] [address] [place] [address] TSH With T4fr Reflexon 04-25 TSH Qn 1.70 m[IU]/L Normal 0.34-5.60 [facility] Comment on above: Performed By: #### 1 [id number] #### [facility] [address] [place] [address] Vit B12on 04-25-2025 Cobalamin (Vitamin B12) [Mass/Vol] 374 pg/mL Normal 50-1500 [facility] Comment on above: Performed By: #### 2 [id number] #### [facility] [address] [place] [address] XR Chest Single Viewon 04-25 XR Chest Single View Exam Date/Time: 04/24/2025 20:39 EDT Reason for Exam: Shortness of breath (SOB) Report IMPRESSION: NO RADIOGRAPHIC EVIDENCE OF ACUTE INTRATHORACIC PROCESS. EXAM: XR Chest Single View History: Shortness of breath Technique: Portable AP view of the chest. Comparison: None available Findings: Suboptimal inspiration. Atherosclerotic calcification of the thoracic aorta. The cardiomediastinal silhouette is within normal limits. No pneumothorax, pleural effusion, or consolidation. No acute osseous abnormality. Ordering Provider: Isai Mehta FINAL REPORT Dictated: 04/25/2025 8:36 am Yudelka Mendenhall DO Signed (Electronic Signature): 04/25/2025 8:36 am Signed by: Yudelka Mendenhall DO Transcribed by: LESTER Technologist: JUVENTINO Normal [facility] eGFRon 04-25-2025 eGFR 109 mL/min/1.73 m2 Normal >=59 [facility] Comment on above: Performed By: #### 1 [id number] #### [facility] [address] [place] [address] AMPICILLIN+SULBACTAM:SUSC:PT :ISOLATE:ORDQN:MICOrdered By: Kelin Mcclendon on 04-24-2025 Ampicillin+Sulbactam CAROLIN [Susc] >100,000 cfu/ml Providencia stuartii >100,000 cfu/ml Methicillin-Resistant Staphylococcus aureus MRSA MRSA called to Dr. Woodruff 04/28/2025 08:49 [facility] Ampicillin+Sulbactam CAROLIN [Gaona sc]Ordered By: Kelin Mcclendon on 04-24-2025 Methicillin-Resistant Staphylococcus aureus MRSA Methicillin-Resistant Staphylococcus aureus MRSA [facility] CBC w/ Auto Diffon Anisocytosis Ql (Bld) PRESENT Invalid Interpretation Code [facility] Comment on above: Performed By: #### 2 [id number] #### [facility] [address] [place] [address] Basophil Absolute 0.0 E9/L Normal 0.0-0.2 [facility] Comment on above: Performed By: #### 2 [id number] #### [facility] [address] [place] [address] Basophils/100 WBC (Bld) 1.1 % Normal 0.0-2.0 [facility] Comment on above: Performed By: #### 2 [id number] #### [facility] [address] [place] [address] Eos Absolute 0.1 E9/L Normal 0.0-0.5 [facility] Comment on above: Performed By: #### 2 [id number] #### [facility] [address] [place] [address] Eosinophils/100 WBC (Bld) 2.3 % Normal 0.0-8.0 [facility] Comment on above: Performed By: #### 2 [id number] #### [facility] [address] [place] [address] Erythrocyte distribution width (RBC) [Ratio] 20.4 % High 10.9-14.2 [facility] Comment on above: Performed By: #### 2 [id number] #### [facility] [address] [place] [address] Hematocrit (Bld) [Volume fraction] 34.9 % Low 37.7-49.0 [facility] Comment on above: Performed By: #### 2 [id number] #### [facility] [address] [place] [address] Hemoglobin (Bld) [Mass/Vol] 11.8 g/dL Low 13.5-17.5 [facility] Comment on above: Performed By: #### 2 [id number] #### [facility] [address] [place] [address] Lymph Absolute 1.2 E9/L Normal 1.0-4.0 [facility] Comment on above: Performed By: #### 2 [id number] #### [facility] [address] [place] [address] Lymphocytes/100 WBC (Bld) 30.2 % Normal 14.0-50.0 [facility] Comment on above: Performed By: #### 2 [id number] #### [facility] [address] [place] [address] MCH (RBC) [Entitic mass] 24.5 pg Low 27.0-34.0 [facility] Comment on above: Performed By: #### 2 [id number] #### [facility] [address] [place] [address] MCHC (RBC) [Mass/Vol] 33.8 g/dL Normal 31.4-36.0 [facility] Comment on above: Performed By: #### 2 [id number] #### [facility] [address] [place] [address] MCV (RBC) [Entitic vol] 72.4 fL Low 80.0-100.0 [facility] Comment on above: Performed By: #### 2 [id number] #### [facility] [address] [place] [address] Microcyte PRESENT Invalid Interpretation Code [facility] Comment on above: Performed By: #### 2 [id number] #### [facility] [address] [place] [address] [place] Absolute 0.2 E9/L Normal 0.2-1.0 [facility] Comment on above: Performed By: #### 2 [id number] #### [facility] [address] [place] [address] Monocytes/100 WBC (Bld) 6.4 % Normal 4.0-14.0 [facility] Comment on above: Performed By: #### 2 [id number] #### [facility] [address] [place] [address] Neutro Absolute 2.3 E9/L Normal 2.0-7.5 [facility] Comment on above: Performed By: #### 2 [id number] #### [facility] [address] [place] [address] Neutro Auto 60.0 % Normal 36.0-75.0 [facility] Comment on above: Performed By: #### 2 [id number] #### [facility] [address] [place] [address] Platelet 267.0 E9/L Normal 150.0-500. 0 [facility] Comment on above: Performed By: #### 2 [id number] #### [facility] [address] [place] [address] Platelet mean volume (Bld) [Entitic vol] 6.7 fL Normal 6.4-10.8 [facility] Comment on above: Performed By: #### 2 [id number] #### [facility] [address] [place] [address] Poikilocytosis PRESENT Invalid Interpretation Code [facility] Comment on above: Performed By: #### 2 [id number] #### [facility] [address] [place] [address] RBC 4.8 E12/L Normal 4.3-5.9 [facility] Comment on above: Performed By: #### 2 [id number] #### [facility] [address] [place] [address] RBC morphology finding Nom (Bld) SEE MORPHOLOGY Invalid Interpretation Code [facility] Comment on above: Performed By: #### 2 [id number] #### [facility] [address] [place] [address] WBC 3.9 E9/L Low 4.0-11.0 [facility] Comment on above: Performed By: #### 2 [id number] #### [facility] [address] [place] [address] CHEMISTRYOrdered By: SYSTEM SYSTEM on 04-24-2025 Albumin [Mass/Vol] 4.3 g/dL Normal 3.3 - 5.0 gm/dL [facility] Chem Albumin/Globulin [Mass ratio] 2.0 {ratio} Normal 1.1 - 2.2 [facility] ALP [Catalytic activity/Vol] 77 [iU]/d Normal 21 - 98 Int._Unit/ L [facility] Chem ALT No additional P-5'-P [Catalytic activity/Vol] 11 [iU]/d Normal 6 - 46 Int._Unit/ L [facility] Anion gap [Moles/Vol] 14 mmol/L Normal 6 - 16 mEq/L [facility] AST [Catalytic activity/Vol] 9 [iU]/d Normal 5 - 43 Int._Unit/ L [facility] Bilirubin [Mass/Vol] 0.5 mg/dL Normal 0.0 - 1 .1 mg/dL [facility] Calcium [Mass/Vol] 9.3 mg/dL Normal 8.9 - 11. 1 mg/dL [facility] Chloride [Moles/Vol] 96 mmol/L Low 101 - 1 11 mmol/L [facility] CO2 [Moles/Vol] 27 mmol/L Normal 21 - 31 mmol/L [facility] Creatinine [Mass/Vol] 0.6 mg/dL Normal 0.5 - 1.3 mg/dL [facility] GFR/1.73 sq M.predicted MDRD (S/P/Bld) [Vol rate/Area] 103 mL/min/1.73 m2 Normal >=59mL/min /1.73 m2 [facility] Globulin (S) [Mass/Vol] 2.2 g/dL Normal 1.4 - 4.0 gm/dL [facility] Glucose [Mass/Vol] 183 mg/dL Normal 55 - 199 mg/dL [facility] Lactate [Moles/Vol] 2.3 mmol/L High 0.5 - 2. 2 mmol/L [facility] Potassium [Moles/Vol] 3.9 mmol/L Normal 3.5 - 5.3 mmol/L [facility] Protein [Mass/Vol] 6.5 g/dL Normal 6.0 - 7.8 gm/dL [facility] Sodium [Moles/Vol] 133 mmol/L Low 135 - 145 mmol/L [facility] Troponin HS 5.40 pg/mL Low 15.90 - 38.40 pg/mL [facility] Comment on above: Interpretive Data: T he 95% CI (Confidence Interval) PPV (Positive Predictive Value) for myocardial infarction in females is 38 pg/mL, in males 51 pg/mL. The results should be used in conjunction with clinical conditions of myocardial infarction. (Access High Sensitivity Troponin I Instructions For Use, Michael [place], May 2018) Urea nitrogen [Mass/Vol] 18 mg/dL Normal 5 - 21 mg/dL [facility] Urea nitrogen/Creatinine [Mass ratio] 30 mg/mg High 10 - 20 [facility] CMPon 04-24-2025 Albumin [Mass/Vol] 4.3 g/dL Normal 3.3-5.0 [facility] Comment on above: Performed By: #### 2 [id number] #### [facility] [address] [place] [address] Albumin/Globulin [Mass ratio] 2.0 {ratio} Normal 1.1-2.2 [facility] Comment on above: Performed By: #### 2 [id number] #### [facility] [address] [place] [address] Alk Phos 77 Int._Unit/L Normal 21-98 [facility] Comment on above: Performed By: #### 2 [id number] #### [facility] [address] [place] [address] ALT 11 Int._Unit/L Normal 6-46 [facility] Comment on above: Performed By: #### 2 [id number] #### [facility] [address] [place] [address] Anion gap [Moles/Vol] 14 mmol/L Normal 6-16 [facility] Comment on above: Performed By: #### 2 [id number] #### [facility] [address] [place] [address] AST 9 Int._Unit/L Normal 5-43 [facility] Comment on above: Performed By: #### 2 [id number] #### [facility] [address] [place] [address] Bili Total 0.5 mg/dL Normal 0.0-1.1 [facility] Comment on above: Performed By: #### 2 [id number] #### [facility] [address] [place] [address] BUN/Creat Ratio 30 No Units High - [facility] Comment on above: Performed By: #### 2 [id number] #### [facility] [address] [place] [address] Calcium [Mass/Vol] 9.3 mg/dL Normal 8.9-11.1 [facility] Comment on above: Performed By: #### 2 [id number] #### [facility] [address] [place] [address] Chloride [Moles/Vol] 96 mmol/L Low 101-111 [facility] Comment on above: Performed By: #### 2 [id number] #### [facility] [address] [place] [address] CO2 [Moles/Vol] 27 mmol/L Normal 21-31 [facility] Comment on above: Performed By: #### 2 [id number] #### [facility] [address] [place] [address] Creatinine [Mass/Vol] 0.6 mg/dL Normal 0.5-1.3 [facility] Comment on above: Performed By: #### 2 [id number] #### [facility] [address] [place] [address] Globulin (S) [Mass/Vol] 2.2 g/dL Normal 1.4-4.0 [facility] Comment on above: Performed By: #### 2 [id number] #### [facility] [address] [place] [address] Glucose [Mass/Vol] 183 mg/dL Normal 55-199 [facility] Comment on above: Performed By: #### 2 [id number] #### [facility] [address] [place] [address] Potassium [Moles/Vol] 3.9 mmol/L Normal 3.5-5.3 [facility] Comment on above: Performed By: #### 2 [id number] #### [facility] [address] [place] [address] Protein [Mass/Vol] 6.5 g/dL Normal 6.0-7.8 [facility] Comment on above: Performed By: #### 2 [id number] #### [facility] [address] [place] [address] Sodium [Moles/Vol] 133 mmol/L Low 135-145 [facility] Comment on above: Performed By: #### 2 [id number] #### [facility] [address] [place] [address] Urea nitrogen [Mass/Vol] 18 mg/dL Normal 5-21 [facility] Comment on above: Performed By: #### 2 [id number] #### [facility] [address] [place] [address] COAGULATIONOrdered By: Isaiah Drew on 04-24-2025 aPTT Coag (PPP) [Time] 32.9 s Normal 25.1 - 36.5 second(s) [facility]ag Comment on above: Interpretive Data: P solametmark 15 days - 4 weeks 1 - 5 months 6 - 11 months 1 - 5 years 6 - 10 years 11 - 17 years PTT Mean: 35.4 (27.6-45.6) Mean: 33.5 (24.8-40.7) Mean: 32.4 (25.1-40.7) Mean: 31.6 (24.0-39.2) Mean: 31.6 (26.9-38.7) Mean: 31.0 (24.6-38.4) Pediatric Reference ranges were obtained from a study by Carson Santos et al. prepared from 1437 samples obtained at 7 different centers using the same coagulation reagent and instrumentation as [facility]. Currently there are no coagulation studies available worldwide for children to 14 days, and no normal ranges. Heparin therapeutic range (represented by Anti-Factor Xa activity of 0.2 - 0.4 U/mL) corresponds to PTT of 56.6 - 109.0 sec. INR Coag (PPP) [Relative time] 1.09 {INR} Invalid Interpretation Code [facility] Comment on above: Interpretive Data: I NR results are specifically intended to assess patients stabilized on long-term Anticoagulation therapy suggested INR s Less Intensive Anticoagulation 2.0 3.0 Conventional Range 3.0 4.5 PT Coag (PPP) [Time] 12.2 s Normal 9.4 - 1 2.5 second(s) [facility] Comment on above: Interpretive Data: 1 5 days - 4 weeks 1 - 5 months 6 -11 months 1 5 years 6 10 years 11 -17 years Mean: 11.2 (9.5 12.6) Mean: 11.0 (9.7 12.8) Mean: 11.0 (9.8 13.0) Mean: 11.3 (9.9 13.4) Mean: 11.7 (10.0 14.6) Mean: 11.8 (10.0 - 14.1) Pediatric Reference ranges were obtained from a study by Carson Santos et al. prepared from 1437 samples obtained at 7 different centers using the same coagulation reagent and instrumentation as [facility]. Currently there are no coagulation studies available worldwide for children to 14 days, and no normal ranges. HEMATOLOGYOrdered By: SYSTEM SYSTEM on 04-24-2025 Anisocytosis Ql (Bld) PRESENT *NA* (04/24/25 9:07 PM) Invalid Interpretation Code [facility] Heme Basophils/100 WBC (Bld) 1.1 % Normal 0.0 - 2.0 % [facility] Basophils/Leukocytes Auto (Bld) [Pure # fraction] 0.0 E9/L Normal 0.0 - 0.2 E9/L [facility] Eosinophils (Bld) [#/Vol] 0.1 E9/L Normal 0.0 - 0.5 E9/L [facility] Eosinophils/100 WBC (Bld) 2.3 % Normal 0.0 - 8.0 % [facility] Erythrocyte distribution width (RBC) [Ratio] 20.4 % High 10.9 - 14.2 % [facility] Hematocrit (Bld) [Volume fraction] 34.9 % Low 37.7 - 49.0 % [facility] Hemoglobin (Bld) [Mass/Vol] 11.8 g/dL Low 13.5 - 17.5 gm/dL [facility] Lymphocytes (Bld) [#/Vol] 1.2 E9/L Normal 1.0 - 4.0 E9/L [facility] Lymphocytes/100 WBC (Bld) 30.2 % Normal 14.0 - 50.0 % [facility] MCH (RBC) [Entitic mass] 24.5 pg Low 27.0 - 34.0 pg [facility] MCHC (RBC) [Mass/Vol] 33.8 g/dL Normal 31.4 - 36.0 gm/dL [facility] MCV (RBC) [Entitic vol] 72.4 fL Low 80.0 - 100.0 fL [facility] Microcytes Ql (Bld) PRESENT *NA* (04/24/25 9:07 PM) Invalid Interpretation Code [facility] Monocytes (Bld) [#/Vol] 0.2 E9/L Normal 0.2 - 1.0 E9/L [facility] Monocytes/100 WBC (Bld) 6.4 % Normal 4.0 - 14.0 % [facility] Neutrophils (Bld) [#/Vol] 2.3 E9/L Normal 2.0 - 7.5 E9/L [facility] Neutrophils/100 WBC (Bld) 60.0 % Normal 36.0 - 75.0 % [facility] Platelet mean volume (Bld) [Entitic vol] 6.7 fL Normal 6.4 - 10.8 fL [facility] Platelets (Bld) [#/Vol] 267.0 E9/L Normal 150.0 - 500.0 E9/L [facility] Poikilocytosis Auto Ql (Bld) PRESENT *NA* (04/24/25 9:07 PM) Invalid Interpretation Code [facility] RBC (Bld) [#/Vol] 4.8 E12/L Normal 4.3 - 5.9 E12/L [facility] RBC size Nom (Bld) SEE MORPHOLOGY *NA* (04/24/25 9:07 PM) Invalid Interpretation Code [facility] WBC corrected for nucl RBC Auto (Bld) [#/Vol] 3.9 E9/L Low 4.0 - 11.0 E9/L [facility] Lactic Acidon 04-24-2025 Lactic Acid Lvl 2.3 mmol/L High 0.5-2.2 [facility] Comment on above: Performed By: #### 2 [id number] #### [facility] [address] [place] [address] No Panel InformationOrdered By: ANGPROCESSSERVER MICROBIOLOGY on 04-24-2025 Blood Culture Charcoal No growth at 4 da ys. Final to follow at 7 days. [facility] Blood Culture Charcoal No growth at 4 da ys. Final to follow at 7 days. [facility] PT & PTTon 04-24-2025 INR Coag (PPP) [Relative time] 1.09 {INR} Invalid Interpretation Code [facility] Comment on above: Result Comment: INR results are specifically intended to assess patients stabilized on long-term Anticoagulation therapy suggested INR???s ???Less Intensive Anticoagulation??? 2.0 ??? 3.0 Conventional Range 3.0 ??? 4.5 Performed By: #### 1 [id number] #### [facility] [address] [place] [address] PT 12.2 second(s) Normal 9.4-12.5 [facility] Comment on above: Result Comment: 15 d ays - 4 weeks 1 - 5 months 6 -11 months 1 ??? 5 years 6 ??? 10 years 11 -17 years Mean: 11.2 (9.5 ??? 12.6) Mean: 11.0 (9.7 ??? 12.8) Mean: 11.0 (9.8 ??? 13.0) Mean: 11.3 (9.9 ??? 13.4) Mean: 11.7 (10.0 ??? 14.6) Mean: 11.8 (10.0 - 14.1) Pediatric Reference ranges were obtained from a study by Carson Santos et al. prepared from 1437 samples obtained at 7 different centers using the same coagulation reagent and instrumentation as [facility]. Currently there are no coagulation studies available worldwide for children to 14 days, and no normal ranges. Performed By: #### 1 [id number] #### [facility] [address] [place] [address] PTT 32.9 second(s) Normal 25.1-36.5 [facility] Comment on above: Result Comment: Para meter 15 days - 4 weeks 1 - 5 months 6 - 11 months 1 - 5 years 6 - 10 years 11 - 17 years PTT Mean: 35.4 (27.6-45.6) Mean: 33.5 (24.8-40.7) Mean: 32.4 (25.1-40.7) Mean: 31.6 (24.0-39.2) Mean: 31.6 (26.9-38.7) Mean: 31.0 (24.6-38.4) Pediatric Reference ranges were obtained from a study by Carson Santos et al. prepared from 1437 samples obtained at 7 different centers using the same coagulation reagent and instrumentation as [facility]. Currently there are no coagulation studies available worldwide for children to 14 days, and no normal ranges. Heparin therapeutic range (represented by Anti-Factor Xa activity of 0.2 - 0.4 U/mL) corresponds to PTT of 56.6 - 109.0 sec. Performed By: #### 1 [id number] #### [facility] [address] [place] [address] Pre-Arrival Noteon Pre-Arrival Note Pre-Arrival Note Pre-Arrival Summary Name: , MADHU Current Date: 04/24/2025 20:08:08 EDT Gender: Male Date of : Age: 70 Pre-Arrival Type: EMS ETA: 04/24/2025 20:22:00 EDT Primary Care Physician: Presenting Problem: seizure Pre-Arrival User: Ewa Catalan RN Referring Source: Location: [place] Completion Date/Time: 04/24/2025 19:52:00 [facility] Emergency Department Pre-Hospital Report Form Vital Signs: Pre-Hospital Report: Treatment in Route: Response to Treatment: Misc. Issues: Normal [facility] Troponinon 04-24-2025 Troponin HS 5.40 pg/mL Low 15.90-38.4 0 [facility] Comment on above: Result Comment: The 95% CI (Confidence Interval) PPV (Positive Predictive Value) for myocardial infarction in females is 38 pg/mL, in males 51 pg/mL. The results should be used in conjunction with clinical conditions of myocardial infarction. (Access High Sensitivity Troponin I Instructions For Use, Michael [place], May 2018) Performed By: #### 2 [id number] #### [facility] [address] [place] [address] UA with Cult Rflxon 04-24-20 25 Color (U) Light-Connelly Abnormal Yellow [facility] Comment on above: Result Comment: Micr oscopic readings are only performed on those samples that meet specific criteria set forth by [facility]. Performed By: #### 4 [id number] #### [facility] [address] [place] [address] Glucose (U) [Mass/Vol] Negative Normal Negative [facility] Comment on above: Performed By: #### 4 [id number] #### [facility] [address] [place] [address] Ketones Ql (U) Negative Normal Negative [facility] Comment on above: Performed By: #### 4 [id number] #### [facility] [address] [place] [address] UA Blood 3+ mg/dL Abnormal Negative [facility] Comment on above: Performed By: #### 4 [id number] #### [facility] [address] [place] [address] UA Amorph Susannah Present Abnormal [facility] Comment on above: Performed By: #### 4 [id number] #### [facility] [address] [place] [address] UA Bacteria 1+ /HPF Abnormal Trace [facility] Comment on above: Performed By: #### 4 [id number] #### [facility] [address] [place] [address] UA Clarity Ex.Turbid Abnormal Clear [facility] Comment on above: Performed By: #### 4 [id number] #### [facility] [address] [place] [address] UA Leuk Est 500 Shelli/uL Abnormal Negative [facility] Comment on above: Performed By: #### 4 [id number] #### [facility] [address] [place] [address] UA Mucous Trace Normal Negative [facility] Comment on above: Performed By: #### 4 [id number] #### [facility] [address] [place] [address] UA Nitrite 1+ mg/dL Abnormal Negative [facility] Comment on above: Performed By: #### 4 [id number] #### [facility] [address] [place] [address] UA pH 7.5 Invalid Interpretation Code 5.0-9.0 [facility] Comment on above: Performed By: #### 4 [id number] #### [facility] [address] [place] [address] UA Protein Trace Abnormal Negative [facility] Comment on above: Performed By: #### 4 [id number] #### [facility] [address] [place] [address] UA RBC >75 Abnormal 0-3 [facility] Comment on above: Performed By: #### 4 [id number] #### [facility] [address] [place] [address] UA Spec Grav 1.014 Invalid Interpretation Code 1.005-1.03 0 [facility] Comment on above: Performed By: #### 4 [id number] #### [facility] [facility] [address] [place] [address] UA Squam Epithelial 0-2 Invalid Interpretation Code [facility] Comment on above: Performed By: #### 4 [id number] #### [facility] [address] [place] [address] UA Urobilinogen Negative Normal Negative [facility] Comment on above: Performed By: #### 4 [id number] #### [facility] [address] [place] [address] UA WBC 31-75 Abnormal 0-5 [facility] Comment on above: Performed By: #### 4 [id number] #### [facility] [address] [place] [address] UA WBC Clump 4-10 Abnormal [facility] Comment on above: Performed By: #### 4 [id number] #### [facility] [address] [place] [address] Urobilinogen (U) [Mass/Vol] Negative Normal Negative [facility] Comment on above: Performed By: #### 4 [id number] #### [facility] [address] [place] [address] UA Spec Desc Catheter Normal [facility] Comment on above: Performed By: #### 4 [id number] #### [facility] [address] [place] [address] URINALYSISOrdered By: SYSTEM SYSTEM on 04-24-2025 Bacteria Auto Ql (U) 1+ /HPF Invalid Interpretation Code Trace/HPF [facility] UA Auto SS Bilirubin Ql (U) Negative Normal Negativemg /dL [facility] UA Auto SS Clarity (U) Ex.Turbid *ABN* (04/24/25 9:08 PM) Invalid Interpretation Code Clear [facility] UA Auto SS Color (U) Light-Connelly 1 *ABN* (04/24/25 9:08 PM) Invalid Interpretation Code Yellow [facility] UA Auto SS Comment on above: Interpretive Data: M icroscopic readings are only performed on those samples that meet specific criteria set forth by [facility]. Crystals.amorphous Computer assisted Ql (U) Present graded/HPF Invalid Interpretation Code [facility] UA Auto SS Epithelial cells.squamous Auto (Urine sed) [#/Area] 0-2 graded/HPF Invalid Interpretation Code [facility] UA Auto SS Glucose Ql (U) Negative Normal Negativemg /dL [facility] UA Auto SS Hemoglobin Auto test strip (U) [Mass/Vol] 3+ mg/dL Invalid Interpretation Code Negativemg /dL [facility] UA Auto SS Ketones Auto test strip Ql (U) Negative Normal Negativemg /dL [facility] UA Auto SS Leukocyte clumps Auto (Urine sed) [#/Area] 4-10 graded/HPF Invalid Interpretation Code [facility] UA Auto SS Leukocyte esterase Auto test strip Ql (U) 500 Shelli/uL Shelli/uL Invalid Interpretation Code NegativeLe u/uL [facility] UA Auto SS Mucus Auto Ql (U) Trace graded/LPF Normal Negati vegr aded/LPF [facility] UA Auto SS Nitrite Auto test strip Ql (U) 1+ mg/dL Invalid Interpretation Code Negativemg /dL [facility] UA Auto SS pH (U) 7.5 *NA* (04/24/25 9:08 PM) Invalid Interpretation Code 5.0 - 9.0 [facility] UA Auto SS Protein Ql (U) Trace mg/dL Invalid Interpretation Code Negativemg /dL [facility] UA Auto SS RBC Ql (U) >75 graded/HPF Invalid Interpretation Code 0-3graded/ HPF [facility] UA Auto SS Specific gravity (U) [Rel density] 1.014 *NA* (04/24/25 9:08 PM) Invalid Interpretation Code 1.005 - 1.030 [facility] UA Auto SS Urobilinogen (U) [Mass/Vol] Negative Normal Negativemg /dL [facility] UA Auto SS WBC Auto (Urine sed) [#/Area] 31-75 graded/HPF Invalid Interpretation Code 0-5graded/ HPF [facility] UA Auto SS URINALYSISOrdered By: Isai Mehta on 04-24-2025 UA Spec Desc Catheter (04/24/25 9:08 PM) Normal [facility] UA Auto SS eGFRon 04-24-2025 eGFR 103 mL/min/1.73 m2 Normal >=59 [facility] Comment on above: Performed By: #### 1 [id number] #### [facility] [address] [place] [address] Ambulatory Visit Summaryon 0 04-15-2025 Ambulatory Visit Summary Ambulatory Visit Summary MASSEYVASHTI :1955 Visit Date:04/15/2025 Ambulatory Visit Instructions Your Diagnosis Gross hematuria BPH with urinary obstruction History of UTI Complex renal cyst Anticoagulated Your Care Team Attending Physician - SEJAL TOWNSEND, JAROCHO Primary Care Physician - ELEAZAR MAYORGA DO This Is Your Medications List Contact prescribing physician if questions or concerns Misc Prescription (METOPROL SUC 50MG ER TAB) acetaminophen (acetaminophen 325 mg Tab) aspirin (aspirin 81 mg oral capsule) atorvastatin (atorvastatin 40 mg Tab) buPROPion (buPROPion 150 mg ER Tab) cefuroxime (cefuroxime 500 mg oral tablet) finasteride (finasteride 5 mg Tab) folic acid (folic acid 1 mg Tab) gabapentin (gabapentin 100 mg Cap) insulin glargine (Lantus Solostar Pen 100 units/mL subcutaneous solution) insulin lispro (Admelog SoloStar 100 units/mL injectable solution) iron polysaccharide (Ferrex-150 oral capsule) lamotrigine loperamide (loperamide 2 mg Cap) magnesium hydroxide magnesium oxide melatonin (melatonin 3 mg Tab) metoprolol (metoprolol succinate 50 mg ER Tab) pantoprazole (Pantoprazole [address] Tab) polyethylene glycol 3350 senna (senna 8.6 mg Tab) tamsulosin (tamsulosin 0.4 mg Cap) ticagrelor (Brilinta (ticagrelor) 90 mg oral tablet) trazodone (traZODONE 150 mg Tab) Procedures Performed History of operative procedure on knee, History of repair of musculotendinous cuff of shoulder. Discharge Vitals Temperature (Temporal Artery) 36.0 ???C Heart Rate (Peripheral) 66 Blood Pressure 126/66 Height 177 cm Height 70 in Weight 84.7 kg Weight 186.731 lb BMI 27.04 What to do next Scheduled Follow-Up Appointments Friday 3:00 PM EST With: JAROCHO POST MD Where: [facility] [address] [place] [address]- You Need to Schedule the Following Appointments Follow Up with SEJAL TOWNSEND, JAROCHO, VAN When: Where: Medications What How Much [...] prescribing physician if questions or concerns Unchanged buPROPion (buPROPion 150 mg ER Tab) 1 Tablets By Mouth Every day Contact prescribing physician if questions or concerns Unchanged cefuroxime (cefuroxime 500 mg oral tablet) Oral, 0 Refill(s) Contact prescribing physician if questions or concerns Unchanged finasteride (finasteride 5 mg Tab) 30 tab(s), 0 Refill(s) Contact prescribing physician if questions or concerns Unchanged folic acid (folic acid 1 mg Tab) 1 Tablets By Mouth Every day Contact prescribing physician if questions or concerns [...] prescribing physician if questions or concerns Unchanged iron polysaccharide (Ferrex-150 oral capsule) 1 Capsules By Mouth Every day Contact prescribing physician if questions or concerns Unchanged lamotrigine 25 Milligram By Mouth Contact prescribing physician if questions or concerns Unchanged loperamide (loperamide 2 mg Cap) 1 Capsules By Mouth Contact prescribing physician if questions or concerns Unchanged magnesium hydroxide 400 Milligram Contact prescribing physician if questions or concerns [...] Oral, 3 Refill(s) Contact prescribing physician if questio (more content not included)... Normal [facility] Urology Office/Clinic Noteon 04-15-2025 Urology Office/Clinic Note Urology Office/Clinic Note Chief Complaint 3mo F/U HPI Staff 69 year old male presents for 3 month f/u. Prev dx: gross hematuria, BPH, complex and renal cyst, hx of UTI, anticoagulated s/p: cyst BL RPG 10/06/24 Unable to obtain UA today, cyr catheter bag. Pt states cyr cath changed 2 weeks ago. Pt states prev cath change in january UTI and blood in bag. denies any issues with current cyr. History of Present Illness Tests reviewed: none. I have reviewed the previous health record information and history for this patient from Dr. Bhakta I have reviewed and verified the staff HPI to be accurate for this encounter. There have been no associated fever, chills, flank pain, or blood in the urine. Denies any urinary infections since last encounter. Review of Systems PHQ Score Initial Depression Screen Score: 0 SCORE ROS - Provider Constitutional: denies weight loss, denies hot flashes. Eyes: denies eye problems. Gastrointestinal: denies nausea, denies vomiting. Cardiovascular: denies chest pain or angina. Integumentary: no dryness Musculoskeletal: denies musculoskeletal symptoms. ENMT: denies otolaryngeal symptoms. Respiratory: no shortness of breath. Heme/Lymph: denies easy bleeding tendency, denies easy bruising tendency. Psychiatric: no confusion, no anxiety. Genitourinary: See HPI. Physical Exam Vitals & Measurements T: 36.0 ???C(Temporal Artery) HR: 66(Peripheral) BP: 126/66 HT: 70 in HT: 177 cm WT: 186.731 lb WT: 84.7 kg BMI: 27.04 General Appearance: alert, no distress, well nourished, well developed male. Assessment/Plan [facility]. Pt accompanied by daughter today. Portions of this record may have been created with voice recognition artificial intelligence software, specifically [employer], [email or web address] and or [employer]. Substitutions may have occurred due to the inherent limitations of voice recognition and artificial intelligence software. 1. Gross hematuria (R31.0: Gross hematuria) CT Abdomen 10/06/24 - Cyr catheter in good position. Small clot burden in bladder. ~Renal function 10/06/24 ~Cr 0.68. eGFR >60 Pt presented to [facility] ER 10/06/24 due to gross hematuria and clot retention. CT Abdomen 10/06/24 - Cyr catheter in good position. Small clot burden in bladder. Renal function 10/06/24 ~Cr 0.68. eGFR >60 Dr. Pereira consulted 10/08/24 ~has had two admissions over the past couple weeks for gross hematuria with clot retention. He was discharged from [facility] in [place] 1 day prior to admission to [facility]. Has not seen a urologist as an outpatient. S/p cysto, BL RPG, bladder fulguration, clot evacuation 10/06/24 ~neg for b.t. Grade 3 trabeculation. 20 Fr three-way Cyr catheter was placed. Urology consult note 10/10/24 Dr. Pereira ~hgb slightly improved over the past 2 days. Continue Finasteride 5mg qd and Cyr catheter upon discharge. Exchange Cyr [id number]. MRI of kidney to further eval complex cyst. Urology consult note 10/12/24 Dr. Portillo due to pt being concerned about why he was at [facility] vs [facility]. Dr. Portillo agreed with Dr. Pereira's plan. F/up as scheduled with urologist in the outpatient setting. Gross hematuria likely secondary to enlarged prostate. [facility] ER 10/28/24 due to gross hematuria/clot retention seen by KML in consult - bladder scan with Cyr in showed >488cc, Cyr was replaced with [address] 2. BPH with urinary obstruction (N40.1: Benign prostatic hyperplasia with lower urinary tract symptoms) S/p cysto, BL RPG, bladder fulguration, clot evacuation 10/06/24 ~prostate is enlarged with bilobar hyperplasia. 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 Patient has Cyr. Denies any no blood or clots in the catheter bag. No leaking around the catheter. [facility] has been changing his catheter. Pt states he is no longer having diarrhea which went on for weeks. Discussed TOV however may result in functional incontinence and pressure ulcers if residential staff does not take pt to void every 2-4 hours. Discussed the need for an outlet procedure in the future, would benefit from TURP. High risk due to cardiac status. Pt and his daughter agree to keep Cyr in place for the next few months. -F/up in 6 mos 3. History of UTI (Z87.440: Personal history of urinary (tract) infections) UCx 12/14/24 - Klebsiella pneumoniae (ESBL) R to Cefazolin, Cefepime, Cefuroxime, Cipro, Levofloxacin, Nitrofurantoin, >100k Providencia stuartii. R to Cipro, Gentamicin, Levofloxacin, Tobramycin. Pt recently related with an ATB for a UTI. Likely due to colonization from Cyr catheter. 4. Complex renal cyst (N28.1: Cyst of kidney, acquired) CT Abdomen 10/06/24 - complex 9 mm L[address] cystic lesion. Dr. Pereira recommended an MRI of the large left complex renal cyst. 5. 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 Normal [facility] Comment on above: Result Comment: Elec tronically Signed By: JAROCHO POST MD\.br\Date and Time Signed: 04/15/25 11:23 EDT\.br\Electronically Co-Signed By: Simin Covarrubias\.br\Date and Time Co-Signed: 04/15/25 10:28 EDT Reminderson 03-17-2025 Reminders Reminders From: Majo Billingsley To: [facility] - Administrative; Sent: 01/07/2025 11:16:49 EDT Show up: 02/28/2025 11:16:00 EDT Subject: Ambulatory Reminder Due Date/Time: 04/15/2025 11:16:00 EDT Reminder/Recall SCHEDULE IN 3/4 MO W/ DR BHAKTA Patient is scheduled for April 15, 2025 with SUZI/aye Beltrán [facility] Office Visiton 01-21-2025 Follow-up visit [id number] Vashti Massey 1955 M Date Provider Department Center 01/21/2025 Abraham-TIMOTHY CHAVES GRACIA Gonsales Family History Problem Relation Age of Onset No Known Problems Mother No Known Problems Father Heart attack Paternal Grandmother Family Status - Relation Status Age at Mother Father Paternal Grandmother Level of Service:13371 MD OFFICE/OUTPATIENT ESTABLISHED MOD MDM 30 MIN Normal [facility] Ambulatory Visit Summaryon 0 01-07-2025 Ambulatory Visit Summary Ambulatory Visit Summary VASHTI MASSEY :1955 Visit Date:10/12/2024 Ambulatory Visit Instructions Your Care Team Primary Care Physician - ELEAZAR MAYORGA DO This Is Your Medications List [facility] Prescription (METOPROL SUC 50MG ER TAB) acetaminophen (acetaminophen 325 mg Tab) aspirin (aspirin 81 mg oral capsule) atorvastatin (atorvastatin 40 mg Tab) cefuroxime (cefuroxime 500 mg oral tablet) finasteride (finasteride 5 mg Tab) gabapentin (gabapentin 100 mg Cap) insulin glargine (Lantus Solostar Pen 100 units/mL subcutaneous solution) insulin lispro (Admelog SoloStar 100 units/mL injectable solution) lamotrigine loperamide (loperamide 2 mg Cap) magnesium hydroxide magnesium oxide melatonin (melatonin 3 mg Tab) metoprolol (metoprolol succinate 50 mg ER Tab) pantoprazole (Pantoprazole [address] Tab) polyethylene glycol 3350 senna (senna 8.6 mg Tab) tamsulosin (tamsulosin 0.4 mg Cap) ticagrelor (Brilinta (ticagrelor) 90 mg oral tablet) trazodone (traZODONE 50 mg Tab) Procedures Performed History of operative procedure on knee, History of repair of musculotendinous cuff of shoulder. Medications What How Much When Instructions Unchanged acetaminophen (acetaminophen 325 mg Tab) 650 Unknown, Oral, 5 Refill(s) Unchanged aspirin (aspirin 81 mg oral capsule) By Mouth Every 24 hours Unchanged atorvastatin (atorvastatin 40 mg Tab) 30 EA, 0 Refill(s), TAKE 1 TABLET BY MOUTH EVERY DAY Unchanged cefuroxime (cefuroxime 500 mg oral tablet) Oral, 0 Refill(s) Unchanged finasteride (finasteride 5 mg Tab) 30 tab(s), 0 Refill(s) Unchanged gabapentin (gabapentin 100 mg Cap) 90 EA, 0 Refill(s) Unchanged insulin glargine (Lantus Solostar Pen 100 units/ mL subcutaneous solution) 15 mL, 0 Refill(s), ADMINISTER 15 UNITS UNDER THE SKIN AT BEDTIME Unchanged insulin lispro (Admelog SoloStar 100 units/ mL injectable solution) 3 mL, 0 Refill(s) Unchanged lamotrigine 25 Milligram By Mouth Unchanged loperamide (loperamide 2 mg Cap) 1 Capsules By Mouth Unchanged magnesium hydroxide 400 Milligram Unchanged magnesium oxide 400 Unknown, Oral, 0 Refill(s) Unchanged melatonin (melatonin 3 mg Tab) 3 Unknown, Oral, 1 Refill(s) Unchanged metoprolol (metoprolol succinate 50 mg ER Tab) Oral, 1 Refill(s) Unchanged Misc Prescription (METOPROL SUC 50MG ER TAB) 0 Unchanged pantoprazole (Pantoprazole [address] Tab) 145 EA, 0 Refill(s), TABLET 1 TABLET BY MOUTH TWICE DAILY BEFORE MEALS FOR 50 DAYS THEN 1 EVERY MORNING THERAFTER Unchanged polyethylene glycol 3350 17 Unknown, Oral, 2 Refill(s) Unchanged senna (senna 8.6 mg Tab) 17.2 Unknown, Oral, 3 Refill(s) Unchanged tamsulosin (tamsulosin 0.4 mg Cap) 30 cap(s), 0 Refill(s) Unchanged ticagrelor (Brilinta (ticagrelor) 90 mg oral tablet) 28 tab(s), 0 Refill(s) Unchanged trazodone (traZODONE 50 mg Tab) Allergies No Known Medication Allergies Problems Ongoing - Any problem that you are currently receiving treatment for. Anemia Anticoagulated Arthritis of right knee At risk for falls BPH with urinary obstruction Cerebral atherosclerosis Chronic kidney disease Complex renal cyst Essential hypertension Gross hematuria Hemiplegia of left nondominant side History of UTI Mixed hyperlipidemia Thrombotic stroke Type 2 diabetes mellitus Ventricular tachycardia Patient Survey You may receive a survey via text or e-mail asking about your office visit. Please share your experience with us by completing your survey. We appreciate your feedback and thank you for choosing us for your care. Normal [facility] Urology Office/Clinic Noteon 01-07-2025 Urology Office/Clinic Note Urology Office/Clinic Note Chief Complaint F/U HPI Staff 69 year old male patient here for a 3 month follow up to discuss TOV. Previous Dx: gross hematuria, BPH with urinary obstruction, complex renal cyst, hx of UTI, anticoagulated. no blood or clots in the catheter bag. No leaking around the catheter History of Present Illness Tests reviewed: none. I have reviewed the previous health record information and history for this patient from Dr. Jarocho Post. I have reviewed and verified the staff HPI to be accurate for this encounter. Review of Systems PHQ Score Initial Depression Screen Score: 0 SCORE ROS - Provider Constitutional: denies weight loss, [...] HPI. Physical Exam Vitals & Measurements HR: 78(Peripheral) RR: 20 BP: 114/67 HT: 70 in HT: 177.8 cm WT: 87.4 kg WT: 192.684 lb BMI: 27.65 General Appearance: alert, no distress, well nourished, well developed male. Assessment/Plan Vashti 69 yo male presents here 69 year old male patient here for a 3 month follow up to discuss TOV. Patient accompanied by his daughter today. 1. Gross hematuria (R31.0: Gross hematuria) CT Abdomen 10/06/24 - Cyr catheter in good position. Small clot burden in bladder. ~Renal function 10/06/24 ~Cr 0.68. eGFR >60 Pt presented to [facility] ER 10/06/24 due to gross hematuria and clot retention. CT Abdomen 10/06/24 - Cyr catheter in good position. Small clot burden in bladder. Renal function 10/06/24 ~Cr 0.68. eGFR >60 Dr. Pereira consulted 10/08/24 ~has had two admissions over the past couple weeks for gross hematuria with clot retention. He was discharged from [facility] 1 day prior to admission to [facility]. Has not seen a urologist as an outpatient. S/p cysto, BL RPG, bladder fulguration, clot evacuation 10/06/24 ~neg for b.t. Grade 3 trabeculation. 20 Fr three-way Cyr catheter was placed. Urology consult note 10/10/24 Dr. Pereira ~hgb slightly improved over the past 2 days. Continue Finasteride 5mg qd and Cyr catheter upon discharge. Exchange Cyr [id number]. MRI of kidney to further eval complex cyst. Urology consult note 10/12/24 Dr. Portillo due to pt being concerned about why he was at [facility] vs [facility]. Dr. Portillo agreed with Dr. Pereira's plan. F/up as scheduled with urologist in the outpatient setting. Gross hematuria likely secondary to enlarged prostate. [facility] ER 10/28/24 due to gross hematuria/clot retention seen by KML in consult - bladder scan with Cyr in showed >488cc, Cyr was replaced with [address] Follow up 3 -4 months or sooner if needed. Pt understands and agrees with plan. -See #2 2. BPH with urinary obstruction (N40.1: Benign prostatic hyperplasia with lower urinary tract symptoms) S/p cysto, BL RPG, bladder fulguration, clot evacuation 10/06/24 ~prostate is enlarged with bilobar hyperplasia. 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 IPSS: not completed today No UA sample provided today. Patient has Cyr. Denies any no blood or clots in the catheter bag. No leaking around the catheter. Patient reports he has been having terrible diarrhea for the past 2 weeks. We briefly discussed C-diff due to the smell and the patient stating he has it for weeks, advised patient to have his stool sent out to rule out C-diff. Otherwise patient and daughter reports not having any problems with the Cyr. Discussed the need for an outlet procedure in the future, would benefit from TURP. High risk due to cardiac status. Pt and his daughter agree to keep Cyr in place for the next few months. We will revisit this in the next few months considering the patient is not mobile at this time. -Cyr to remain in place Follow up 3 -4 months or sooner if needed. Pt understands and agrees with plan. -See #1 3. Complex renal cyst (N28.1: Cyst of kidney, acquired) CT Abdomen 10/06/24 - complex 9 mm LUP cystic lesion. Dr. Pereira recommended an MRI of the large left complex renal cyst. -Discuss further at next f/up 4. History of UTI (Z87.440: Personal history of urinary (tract) infections) UCx 12/14/24 - Klebsiella pneumoniae (ESBL) R to Cefazolin, Cefepime, Cefuroxime, Cipro, Levofloxacin, Nitrofurantoin, >100k Providencia stuartii. R to Cipro, Gentamicin, Levofloxacin, Tobramycin. See #1. Likely due to colonization from Cyr catheter. 5. 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 Left-sided weakness. On Brilinta. Elevated risk fo (more content not included)... Normal [facility] Comment on above: Result Comment: Elec tronically Signed By: SEJAL TOWNSEND, JAROCHO\.br\Date and Time Signed: 01/07/25 10:58 EDT\.br\Electronically Co-Signed By: Milagro Burroughs\.br\Date and Time Co-Signed: 01/07/25 10:45 EDT MRI CARD MORPH FUNC WO/W IVC ONon 12-28-2024 MRI CARD MORPH FUNC WO/W IVCON * * *Final Report* * * DATE OF EXAM: Dec 28 2024 10:43AM [facility] [id number] - MRI CARD MORPH FUNC WO/W IVCON / PROCEDURE REASON: CARDIOMYOPATHY, HYPERTROPHIC * * * * Physician Interpretation * * * * RESULT: Cardiac MRI Report: [facility] Date of service: 12/28/2024 8:43:10 AM Linked orders:[id number] CARD MORPH FUNC WO/W IVCON;[id number] CARDIAC VELOCITY FLOW MAP. Ordering physician: DEBBIE ZUÑIGA Technologist: GUERITA GRIGGS Fellow: Lois James MD Interpreting physician: Paz Kelly MD PATIENT: Name: MR. VASHTI MASSEY Age: 69 years Gender: M MRI Scanner: Siemens Karen 1.5T 69 year old male with suspected hypertrophic cardiomyopathy. This study is performed to assess for left ventricular morphology, abnormal papillary muscle morphology, myocardial fibrosis, and to quantitate left ventricular and valvular function. MRI Techniques: * Turbo spin echo and gradient echo imaging for anatomic definition. * Dynamic cine imaging (SSFP and GRE) for cardiac chamber and wall-motion analysis, and valvular analysis. * Flow quantification sequences for hemodynamics in 2 locations: aortic root and mid-ascending aorta. * Delayed gadolinium enhancement analysis after injection of gadolinium-chelate. * T1 mapping. Baseline vital signs: 70 bpm Height: 177.80 cm BSA: 2.06 m? Weight: 86.20 kg BMI: 27.3 kg/m? FINDINGS: Extracardiac findings: The chest wall appears normal. The mediastinum is normal. No significant adenopathy is identified. Small mediastinal lymph nodes . Limited imaging of the lungs reveals no gross abnormalities. Cardiac structures: The cardiac chambers demonstrate normal atrioventricular and normal ventriculoarterial concordance. Systemic and pulmonary venous return is normal. Situs solitus. Aorta: The thoracic aorta is abnormal in course, caliber and contour. Sinus: 4.0 cm Mid ascendin.2 cm Descending mid thoracic: 2.9 cm Arch: Left Arch vessel branching pattern: normal Arch branch vessels: Widely patent Pulmonary Arteries: Pulmonary Arteries: Dilated Measurements: - Main pulmonary artery diameter: 3.1 cm Left Atrium: The left atrium is normal in size. LA volume: 60 ml (normal range: 31-112 ml) LA volume index: 29 ml/m? (normal range: 14-55 ml/m?) LA area (4ch): 15 cm? LA area (2ch): 25 cm? Right Atrium: The right atrium is normal in size. RA volume: 89 ml (normal range: 24-105 ml) RA volume index: 43 ml/m? (normal range: 17-70 ml/m?) RA area (4ch): 27 cm? Left Ventricle: The left ventricle is normal in size. Left ventricular systolic function is normal. thickened papillary muscles not necessarily apically inserted. value (normal range) indexed (normal range) EDV: 185 ml (83-207 ml) EDVi: 90 ml/m? (47-107 ml/m?) ESV: 61 ml (19-88 ml) ESVi: 30 ml/m? (11-47 ml/m?) SV: 124 ml (55-127 ml) SVi: 60 ml/m? (30-66 ml/m?) EF: 67 % (51-76 %) CO: 8.6 l/min (3.9-8.3 l/min) CI: 4.2 l/min/m? (2.1-4.3 ml/min/m?) mass: 128 g (57-152 g) LVMi: 62 g/m? (36-75 g/m?) There is mild LV hypertrophy. LV segment wall thickness: basal anteroseptum: 1.3 cm basal septum: 1.2 cm basal inferolateral: 0.6 cm Wall Motion: There are no wall motion abnormalities. Delayed Enhancement: There is <25% delayed gadolinium enhancement of the basal and mid anterolateral wall and basal anteroseptal segment.All remaining scored segments are normal. - Delayed-enhancement imaging reveals late gadolinium enhancement in a non-ischemic pattern: mid myocardial enhancement in the lateral wall. Right Ventricle: The right ventricle is normal in size. Right ventricular systolic function is normal. value (normal range) indexed (normal range) EDV: 226 ml (87-244 ml) EDVi: 110 ml/m? (53-123 ml/m?) ESV: 99 ml (29-117 ml) ESVi: 48 ml/m? (17-59 ml/m?) SV: 127 ml (43-146 ml) SVi: 62 ml/m? (28-75 ml/m?) EF: 56 % (42-72 %) CO: 8.9 l/min (2.8-8.3 l/min) CI: 4.3 l/min/m? (1.5-4.5 l/min/m?) T1 / T2 / ECV T2 * : +------+ +--- ---+ +-----+ -------+-----+ T1 pre (ms) +/- T1 post (ms) +/- ECV (%) +/- +------+ +--- ---+ +-----+ -------+-----+ Base 1056.82 126.25 484.20 31.38 36.46 7.71 +------+ +--- ---+ +-----+ -------+-----+ Mid 1055.20 62.83 476.69 33.24 36.60 15.09 +------+ +--- ---+ +-----+ -------+-----+ Jennings 1084.11 84.09 434.85 47.75 50.39 10.28 +------+ +--- ---+ +-----+ -------+-----+ Global 1063.02 95.53 469.80 41.46 38.82 12.95 +------+ +--- ---+ +-----+ -------+-----+ Normal values based on healthy individuals: T1: 950 +/- 21 ms; ECV: 26 +/- 4% Aortic Valve: The aortic valve cusps are structurally normal. There is no thickening. AV Flow Quantification: Inaccurate due to technical limitations. ST Junction Forward Volume: 88 (more content not included)... Normal [facility] MRI CARDIAC VELOCITY FLOW MA [place] 12-28-2024 MRI CARDIAC VELOCITY FLOW MAP * * *Final Report* * * DATE OF EXAM: Dec 28 2024 10:43AM HCM [id number] - MRI CARDIAC VELOCITY FLOW MAP / PROCEDURE REASON: CARDIOMYOPATHY, HYPERTROPHIC * * * * Physician Interpretation * * * * RESULT: Cardiac MRI Report: [facility] Date of service: 12/28/2024 8:43:10 AM Linked orders:[id number] CARD MORPH FUNC WO/W IVCON;[id number] CARDIAC VELOCITY FLOW MAP. Ordering physician: DEBBIE ZUÑIGA Technologist: GUERITA GRIGGS Fellow: Lois James MD Interpreting physician: Paz Kelly MD PATIENT: Name: MR. VASHTI MASSEY Age: 69 years Gender: M MRI Scanner: Siemens Karen 1.5T 69 year old male with suspected hypertrophic cardiomyopathy. This study is performed to assess for left ventricular morphology, abnormal papillary muscle morphology, myocardial fibrosis, and to quantitate left ventricular and valvular function. MRI Techniques: * Turbo spin echo and gradient echo imaging for anatomic definition. * Dynamic cine imaging (SSFP and GRE) for cardiac chamber and wall-motion analysis, and valvular analysis. * Flow quantification sequences for hemodynamics in 2 locations: aortic root and mid-ascending aorta. * Delayed gadolinium enhancement analysis after injection of gadolinium-chelate. * T1 mapping. Baseline vital signs: 70 bpm Height: 177.80 cm BSA: 2.06 m? Weight: 86.20 kg BMI: 27.3 kg/m? FINDINGS: Extracardiac findings: The chest wall appears normal. The mediastinum is normal. No significant adenopathy is identified. Small mediastinal lymph nodes . Limited imaging of the lungs reveals no gross abnormalities. Cardiac structures: The cardiac chambers demonstrate normal atrioventricular and normal ventriculoarterial concordance. Systemic and pulmonary venous return is normal. Situs solitus. Aorta: The thoracic aorta is abnormal in course, caliber and contour. Sinus: 4.0 cm Mid ascendin.2 cm Descending mid thoracic: 2.9 cm Arch: Left Arch vessel branching pattern: normal Arch branch vessels: Widely patent Pulmonary Arteries: Pulmonary Arteries: Dilated Measurements: - Main pulmonary artery diameter: 3.1 cm Left Atrium: The left atrium is normal in size. LA volume: 60 ml (normal range: 31-112 ml) LA volume index: 29 ml/m? (normal range: 14-55 ml/m?) LA area (4ch): 15 cm? LA area (2ch): 25 cm? Right Atrium: The right atrium is normal in size. RA volume: 89 ml (normal range: 24-105 ml) RA volume index: 43 ml/m? (normal range: 17-70 ml/m?) RA area (4ch): 27 cm? Left Ventricle: The left ventricle is normal in size. Left ventricular systolic function is normal. thickened papillary muscles not necessarily apically inserted. value (normal range) indexed (normal range) EDV: 185 ml (83-207 ml) EDVi: 90 ml/m? (47-107 ml/m?) ESV: 61 ml (19-88 ml) ESVi: 30 ml/m? (11-47 ml/m?) SV: 124 ml (55-127 ml) SVi: 60 ml/m? (30-66 ml/m?) EF: 67 % (51-76 %) CO: 8.6 l/min (3.9-8.3 l/min) CI: 4.2 l/min/m? (2.1-4.3 ml/min/m?) mass: 128 g (57-152 g) LVMi: 62 g/m? (36-75 g/m?) There is mild LV hypertrophy. LV segment wall thickness: basal anteroseptum: 1.3 cm basal septum: 1.2 cm basal inferolateral: 0.6 cm Wall Motion: There are no wall motion abnormalities. Delayed Enhancement: There is <25% delayed gadolinium enhancement of the basal and mid anterolateral wall and basal anteroseptal segment.All remaining scored segments are normal. - Delayed-enhancement imaging reveals late gadolinium enhancement in a non-ischemic pattern: mid myocardial enhancement in the lateral wall. Right Ventricle: The right ventricle is normal in size. Right ventricular systolic function is normal. value (normal range) indexed (normal range) EDV: 226 ml (87-244 ml) EDVi: 110 ml/m? (53-123 ml/m?) ESV: 99 ml (29-117 ml) ESVi: 48 ml/m? (17-59 ml/m?) SV: 127 ml (43-146 ml) SVi: 62 ml/m? (28-75 ml/m?) EF: 56 % (42-72 %) CO: 8.9 l/min (2.8-8.3 l/min) CI: 4.3 l/min/m? (1.5-4.5 l/min/m?) T1 / T2 / ECV T2 * : +------+ +--- ---+ +-----+ -------+-----+ T1 pre (ms) +/- T1 post (ms) +/- ECV (%) +/- +------+ +--- ---+ +-----+ -------+-----+ Base 1056.82 126.25 484.20 31.38 36.46 7.71 +------+ +--- ---+ +-----+ -------+-----+ Mid 1055.20 62.83 476.69 33.24 36.60 15.09 +------+ +--- ---+ +-----+ -------+-----+ Jennings 1084.11 84.09 434.85 47.75 50.39 10.28 +------+ +--- ---+ +-----+ -------+-----+ Global 1063.02 95.53 469.80 41.46 38.82 12.95 +------+ +--- ---+ +-----+ -------+-----+ Normal values based on healthy individuals: T1: 950 +/- 21 ms; ECV: 26 +/- 4% Aortic Valve: The aortic valve cusps are structurally normal. There is no thickening. AV Flow Quantification: Inaccurate due to technical limitations. ST Junction Forward Volume: 88 m (more content not included)... Normal [facility] Provider Letteron 12-14-2024 Provider Letter Provider Letter December 14, 2024 VASHTI MASSEY [address] [place] [address] : 1955 Dear Vashti , We have been trying to reach you with no success. You have an appointment with Dr. Bhakta on 01/21/25 which will need to be rescheduled since he/she will be out of the office that day. Please contact the office at the number listed below to get this appointment rescheduled at your earliest convenience. Thank you for your prompt attention to this matter. Sincerely, [facility] [address] [place] [address] [facility] Office Visiton 12-08-2024 Follow-up visit [id number] MasseyVashti andino Wilmar 1955 M Date Provider Department [facility] Family History Problem Relation Age of Onset No Known Problems Mother No Known Problems Father Heart attack Paternal Grandmother Family Status - Relation Status Age at Mother Father Paternal Grandmother Level of Service:32944 MD OFFICE/OUTPATIENT ESTABLISHED LOW MDM 20 MIN Normal [facility] Ambulatory Visit Summaryon 0 11-08-2024 Ambulatory Visit Summary Ambulatory Visit Summary MASSEYVASHTI ANDINO Wilmar :1955 Visit Date:11/08/2024 Ambulatory Visit Instructions Your Diagnosis Gross hematuria BPH with urinary obstruction Complex renal cyst History of UTI Anticoagulated Other obstructive and reflux uropathy Your Care Team Attending Physician - JAROCHO POST MD Primary Care Physician - ELEAZAR MAYORGA DO This Is Your Medications List [...] of musculotendinous cuff of shoulder. Discharge Vitals Height 177.8 cm Height 70 in Weight 83 kg Weight 182.983 lb BMI 26.26 What to do next Scheduled Follow-Up Appointments Friday 3:00 PM EDT With: JAROCHO POST MD Where: [facility] [address] [place] [address]- You Need to Schedule the Following Appointments Follow Up with SEJAL TOWNSEND, JAROCHO, URL When: Comments: Appointment has already been scheduled Where: Medications What How Much When Instructions [...] receive a survey via text or e-mail askin (more content not included)... Normal [facility] Urology Office/Clinic Noteon 11-08-2024 Urology Office/Clinic Note Urology Office/Clinic Note HPI Staff 69 year old male follow up to [facility] 10/28/24 due to gross hematuria/clot retention seen by KML in consult bladder scan with cyr in showed >488cc, cyr was replaced with [address] patients daughter states that patient is still holding blood thinners. Denies any gross hematuria in the last few days. Patient denies any abdomen or flank pain. History of Present Illness Tests reviewed: reviewed UA and External Records. I have reviewed the previous health record information and history for this patient from . I have reviewed and verified the staff HPI to be accurate for this encounter. There have been no associated fever, chills, flank pain, or blood in the urine. Denies any urinary infections since last encounter. Review of Systems PHQ Score Initial Depression Screen Score: 0 SCORE ROS - Provider Constitutional: denies weight loss, denies hot flashes. Eyes: denies eye problems. Gastrointestinal: denies nausea, denies vomiting. Cardiovascular: denies chest pain or angina. Integumentary: no dryness Musculoskeletal: denies musculoskeletal symptoms. ENMT: denies otolaryngeal symptoms. Respiratory: no shortness of breath. Heme/Lymph: denies easy bleeding tendency, denies easy bruising tendency. Psychiatric: no confusion, no anxiety. Genitourinary: See HPI. Physical Exam Vitals & Measurements HT: 70 in HT: 177.8 cm WT: 83 kg WT: 182.983 lb BMI: 26.26 General Appearance: alert, no distress, well nourished, well developed male. Assessment/Plan 69 yo male pt here today for a [facility] f/u from 10/28/24. Hx of T2DM, HTN, smoker, CVA on Brilinta, and chronic indwelling Cyr catheter, severe UR. Wheelchair bound. Resides at [facility], plan is to be released at home once he recovers. Pt accompanied by daughter today. Portions of this record may have been created with voice recognition artificial intelligence software, specifically [employer], [email or web address] and or [employer]. Substitutions may have occurred due to the inherent limitations of voice recognition and artificial intelligence software. 1. Gross hematuria (R31.0: Gross hematuria) Cyr was placed after pt had a stroke. Likely placed for convenience. Pt presented to [facility] ER 10/06/24 due to gross hematuria and clot retention. CT Abdomen 10/06/24 - Cyr catheter in good position. Small clot burden in bladder. Renal function 10/06/24 ~Cr 0.68. eGFR >60 Dr. Pereira consulted 10/08/24 ~has had two admissions over the past couple weeks for gross hematuria with clot retention. He was discharged from [facility] 1 day prior to admission to [facility]. Has not seen a urologist as an outpatient. S/p cysto, BL RPG, bladder fulguration, clot evacuation 10/06/24 ~neg for b.t. Grade 3 trabeculation. 20 Fr three-way Cyr catheter was placed. Urology consult note 10/10/24 Dr. Pereira ~hgb slightly improved over the past 2 days. Continue Finasteride 5mg qd and Cyr catheter upon discharge. Exchange Cyr [id number]. MRI of kidney to further eval complex cyst. Urology consult note 10/12/24 Dr. Portillo due to pt being concerned about why he was at [facility] vs [facility]. Dr. Portillo agreed with Dr. Pereira's plan. F/up as scheduled with urologist in the outpatient setting. Gross hematuria likely secondary to enlarged prostate. [facility] ER 10/28/24 due to gross hematuria/clot retention seen by KML in consult - bladder scan with cyr in showed >488cc, cyr was replaced with [address] Patients daughter states that patient is still holding blood thinners. Denies any gross hematuria in the last few days. Patient denies any abdomen or flank pain. Advised pt that he can resume his blood thinners, continue with monthly cath changes, and continue to monitor urine in the meantime. Follow up at already scheduled procedure on 01/21/25. All questions/concerns were discussed. Pt to call the office if he encounters any issues prior. Pt acknowledges understanding. -See #2 2. BPH with urinary obstruction [...] orders for cyr to be changed qmonthly -See #1 3. Complex renal cyst (N28.1: Cyst of kidney, acquired) CT Abdomen 10/06/24 - complex 9 mm LUP cystic lesion. Dr. Pereira recommended an MRI of the large left complex renal cyst. -Discuss further at (more content not included)... Normal [facility] Comment on above: Result Comment: Elec tronically Signed By: JAROCHO POST MD\.br\Date and Time Signed: 11/08/24 10:24 EST\.br\Electronically Co-Signed By: Linh Novoa\.br\Date and Time Co-Signed: 11/08/24 10:06 EST Globulin Calc (S) [Mass/Vol] on 10-28-2024 Globulin (S) [Mass/Vol] Serum globulin measurement by calculation (mass/volume) [facility] - Chemistry and C hemistry - challengeon 10-28-2024 Bilirubin Ql (U) Negative NEGATIVE [facility] Glucose (U) [Mass/Vol] Negative NEGATIVE [facility] Ketones Ql (U) Negative NEGATIVE [facility] pH (U) 6.0 [pH] 5.0-9.0 [facility] Specific gravity (U) [Rel density] 1.010 1.005-1.02 5 [facility] Urobilinogen Qn (U) 0.2 {Marley'U}/dL 0.2-1.0 [facility] Albumin [Mass/Vol] 3.6 g/dL 3.4-5.0 [facility] ALP [Catalytic activity/Vol] 68 U/L 46-116 [facility] ALT [Catalytic activity/Vol] 21 U/L 16-63 [facility] Amylase [Catalytic activity/Vol] 25 U/L 25-115 [facility] AST [Catalytic activity/Vol] 15 U/L 15-37 [facility] Bilirubin [Mass/Vol] 0.4 mg/dL 0.2-1.0 [facility] Bilirubin.direct [Mass/Vol] 0.1 mg/dL 0.0-0.2 [facility] Lipase [Catalytic activity/Vol] 35.0 U/L 16.0-77.0 [facility] Protein [Mass/Vol] 6.3 g/dL Low 6.4-8.2 [facility] - Specimen inform ationon 10-28-2024 Appearance (U) SL CLOUDY CLEAR [facility] Color (U) LT. YELLOW YELLOW [facility] - Urinalysison Leukocyte esterase Test strip Ql (U) TRACE Abnormal NEGATIVE [facility] Nitrite Ql (U) Negative NEGATIVE [facility] Protein Ql (U) Negative NEG/TRACE [facility] No Panel Informationon 10-28 Urine Occult Blood LARGE Abnormal NEGATIVE [facility] Serum or plasma albumin/glob ulin mass ratioon 10-28-2024 Albumin/Globulin [Mass ratio] Serum or plasma albumin/globulin mass ratio [facility] Urine Cultureon 10-28-2024 Bacteria identified Cx Nom (U) ORGANISM: Klebsiella pneumoniae (ESBL) (O:KLEPNEESBL) [place] Count <10,000 ORGANISM: Pseudomonas aeruginosa (O:PSEAER) [place] Count <10,000 Aerobic CAROLIN Charge (NMIC56) -- SUSCEPTIBILITY - ORGANISM: O:KLEPNEESBL ANTIBIOTIC INTERPRETATION CAROLIN Amikacin S <16 Amoxacillin/K Clavulanate S <8 Ampicillin/Sulbactam I 1616/8 Aztreonam ESBL >16 Cefazolin R* >16 Cefepime R* >16 Ceftazidime ESBL >16 Ceftazidime/Avibactam S <4 Ceftolozane/Tazobactam S <2 Ceftriaxone ESBL >32 Cefuroxime R* >16 Ciprofloxacin I 0.5 Ertapenem S <0.5 Gentamicin S <2 Levofloxacin S <0.5 Meropenem S <1 Meropenem/Vaborbactam S <2 Nitrofurantoin R >64 Piperacillin/Tazobactam S <8 Tetracycline S <4 Tigecycline S <2 Tobramycin S <2 Trimethoprim/Sulfametho xazole S <0.5 Aerobic CAROLIN Charge (NMIC56) -- SUSCEPTIBILITY - ORGANISM: O:PSEAER ANTIBIOTIC INTERPRETATION CAROLIN Amikacin S <16 Aztreonam IB <4 Cefepime S <2 Ceftazidime IB <1 Ceftazidime/Avibactam S <4 Ceftolozane/Tazobactam S <2 Ciprofloxacin S <0.25 Gentamicin S <2 Levofloxacin S <0.5 Meropenem S <1 Piperacillin/Tazobactam IB <8 Tobramycin S <2 S = SUSCEPTIBLE I = INTERMEDIATE R [...] RESISTANT TO ALL B-LACTAM DRUGS. PERFORMED BY: [place] [address] PATHOLOGIST [employer] VENUS NORIEGA M.D. Normal [facility] Comment on above: Performed By: #### C K, LIPASE, CBC, BMP, BNP, HEPATIC, HS TROP #### [address] Ambulatory Visit Summaryon 1 Ambulatory Visit Summary Ambulatory Visit Summary VASHTI MASSEY :1955 Visit Date:10/25/2024 Ambulatory Visit Instructions Your Diagnosis Gross hematuria BPH with urinary obstruction Complex renal cyst History of UTI Anticoagulated Your Care Team Attending Physician - SEJAL TOWNSEND, JAROCHO Primary Care Physician - ELEAZAR MAYORGA DO This Is Your Medications List [...] JAROCHO POST MD Where: [facility] [address] [place] [address]- You Need to Schedule the Following Appointments Follow Up with SEJAL TOWNSEND, JAROCHO, VAN When: Where: Medications What How Much [...] your experience with us by completing your gaona (more content not included)... Normal [facility] Urology Office/Clinic Noteon 10-25-2024 Urology Office/Clinic Note Urology Office/Clinic Note Chief Complaint new patient [facility] Staff 69 year old male new patient here for follow up to [facility] consult by Dr. Pereira due to gross [...] our office here for f/up to recent [facility] admission. Hx of T2DM, HTN, smoker, CVA on Brilinta, and chronic indwelling Cyr catheter, severe UR. Wheelchair bound. Resides at [facility], plan is to be released at home once he recovers. Pt accompanied by daughter today. Portions of this record may have been created with voice recognition artificial intelligence software, specifically [employer], [email or web address] and or [employer]. Substitutions may have occurred due to the inherent limitations of voice recognition and artificial intelligence software. 1. Gross hematuria (R31.0: Gross hematuria) Cyr was placed after pt had a stroke. Likely placed for convenience. Pt presented to [facility] ER 10/06/24 due to gross hematuria and clot retention. CT Abdomen 10/06/24 - Cyr catheter in good position. Small clot burden in bladder. Renal function 10/06/24 ~Cr 0.68. eGFR >60 Dr. Pereira consulted 10/08/24 ~has had two admissions over the past couple weeks for gross hematuria with clot retention. He was discharged from [facility] in [place] 1 day prior to admission to [facility]. Has not seen a urologist as an outpatient. S/p cysto, BL RPG, bladder fulguration, clot evacuation 10/06/24 ~neg for b.t. Grade 3 trabeculation. 20 Fr three-way Cyr catheter was placed. Urology consult note 10/10/24 Dr. Pereira ~hgb slightly improved over the past 2 days. Continue Finasteride 5mg qd and Cyr catheter upon discharge. Exchange Cyr [id number]. MRI of kidney to further eval complex cyst. Urology consult note 10/12/24 Dr. Portillo due to pt being concerned about why he was at [facility] vs [facility]. Dr. Portillo agreed with Dr. Pereira's [...] 5. An (more content not included)... Normal [facility] Comment on above: Result Comment: Elec tronically Signed By: JAROCHO POST MD\.br\Date and Time Signed: 10/25/24 11:39 EST\.br\Electronically Co-Signed By: Simin Covarrubias\.br\Date and Time Co-Signed: 10/25/24 11:28 EST Glucose Glucometer (dC) [M ass/Vol]Ordered By: Bryson Chavez on 10-12-2024 Glucose [Mass/Vol] Capillary blood gluc ose measurement by glucometer (mass/volume) [facility] Comment on above: Random Glucose Refer ence Range is dependent on time and content of last meal. Glucose of more than 200 mg/dL in a nonstressed, ambulatory subject supports the diagnosis of Diabetes Mellitus. Glucose Poct Glucometerson 1 12-13-2023 Glucose [Mass/Vol] 155 mg/dL Normal [facility] Comment on above: Result Comment: [place] om Glucose Reference Range is dependent on time and content of last meal. Glucose of more than 200 mg/dL in a nonstressed, ambulatory subject supports the diagnosis of Diabetes Mellitus. PERFORMED BY: [facility] [address] [place] [address] PATHOLOGIST [employer] VENUS NORIEGA M.D. Performed By: #### C K, LIPASE, CBC, BMP, BNP, HEPATIC, HS TROP #### [facility] [address] Commemt1 Glu2: Cleaned Meter Normal [facility] Comment on above: Result Comment: PERF ORMED BY: [place] [address] PATHOLOGIST [employer] VENUS NORIEGA M.D. Performed By: #### C K, LIPASE, CBC, BMP, BNP, HEPATIC, HS TROP #### [address] Glucose [Mass/Vol] 230 mg/dL Normal [facility] Comment on above: Result Comment: [place] om Glucose Reference Range is dependent on time and content of last meal. Glucose of more than 200 mg/dL in a nonstressed, ambulatory subject supports the diagnosis of Diabetes Mellitus. Performed By: #### C K, LIPASE, CBC, BMP, BNP, HEPATIC, HS TROP #### [address] Commemt1 Glu2: Cleaned Meter Normal [facility] Comment on above: Result Comment: PERF ORMED BY: [place] [address] PATHOLOGIST [employer] VENUS NORIEGA M.D. Performed By: #### G LULS #### Point of Care testing , Glucose [Mass/Vol] 138 mg/dL Normal [facility] Comment on above: Result Comment: [place] om Glucose Reference Range is dependent on time and content of last meal. Glucose of more than 200 mg/dL in a nonstressed, ambulatory subject supports the diagnosis of Diabetes Mellitus. Performed By: #### G LULS #### Point of Care testing , No Panel InformationOrdered By: Bryson Chavez on 10-12-2024 Bedside Glucose Comment Glu2: cleaned meter [facility] Alanine aminotransferase [En zymatic activity/volume] in Serum or PlasmaOrdered By: Abiola Benson on 10-11-2024 ALT [Catalytic activity/Vol] Alanine aminotransferase [Enzymatic activity/volume] in Serum or Plasma [facility] Albumin [Mass/volume] in Ser um or Plasma by Bromocresol green (BCG) dye binding methoOrdered By: Abiola Benson on 10-11-2024 Albumin BCG dye [Mass/Vol] Albumin [Mass/volume] in Serum or Plasma by Bromocresol green (BCG) dye binding metho 3.5-5.7 [facility] Alkaline phosphatase [Enzyma tic activity/volume] in Serum or PlasmaOrdered By: Abiola Benson on 10-11-2024 ALP [Catalytic activity/Vol] Alkaline phosphatase [Enzymatic activity/volume] in Serum or Plasma 34-104 [facility] Aspartate aminotransferase [ Enzymatic activity/volume] in Serum or PlasmaOrdered By: Abiola Benson on 10-11-2024 AST [Catalytic activity/Vol] Aspartate aminotransferase [Enzymatic activity/volume] in Serum or Plasma Low 13-39 [facility] Basophils Auto (Bld) [#/Vol] Ordered By: Abiola Benson on 10-11-2024 Basophils (Bld) [#/Vol] Automated basophil count 0.0-0.2 [facility] Basophils/100 WBC Auto (Bld) Ordered By: Abiola Benson on 10-11-2024 Basophils/100 WBC (Bld) Automated basophil % . [facility] Bilirubin.total [Mass/volume ] in Serum or PlasmaOrdered By: Abiola Benson on 10-11-2024 Bilirubin [Mass/Vol] Bilirubin.total [Mass/volume] in Serum or Plasma 0.3-1.0 [facility] Calcium [Mass/volume] in Ser um or PlasmaOrdered By: Abiola Benson on 10-11-2024 Calcium [Mass/Vol] Calcium [Mass/volume ] in Serum or Plasma 8.6-10.3 [facility] Carbon dioxide, total [Moles /volume] in Serum or PlasmaOrdered By: Abiola Benson on 10-11-2024 CO2 [Moles/Vol] Carbon dioxide, tota l [Moles/volume] in Serum or Plasma 21.0-31.0 [facility] Chloride [Moles/volume] in S chiara or PlasmaOrdered By: Abiola Benson on 10-11-2024 Chloride [Moles/Vol] Chloride [Moles/vol ume] in Serum or Plasma 98-107 [facility] Complete Blood Count Auto Di ffon 10-11-2024 Basophils (Bld) [#/Vol] 0.1 10*3/uL Normal 0.0-0.2 [facility] Comment on above: Result Comment: PERF ORMED BY: [place] [address] PATHOLOGIST [employer] VENUS NORIEGA M.D. Performed By: #### C K, LIPASE, CBC, BMP, BNP, HEPATIC, HS TROP #### [address] Basophils/100 WBC (Bld) 1.7 % Normal . [facility] Comment on above: Performed By: #### C K, LIPASE, CBC, BMP, BNP, HEPATIC, HS TROP #### [address] Eosinophils (Bld) [#/Vol] 0.2 10*3/uL Normal 0.0-0.45 [facility] Comment on above: Performed By: #### C K, LIPASE, CBC, BMP, BNP, HEPATIC, HS TROP #### [address] Eosinophils/100 WBC (Bld) 5.4 % Normal . [facility] Comment on above: Performed By: #### C K, LIPASE, CBC, BMP, BNP, HEPATIC, HS TROP #### [address] Erythrocyte distribution width (RBC) [Ratio] 17.3 % High 12.0-14.8 [facility] Comment on above: Performed By: #### C K, LIPASE, CBC, BMP, BNP, HEPATIC, HS TROP #### [address] Hematocrit (Bld) [Volume fraction] 26.5 % Low 38.8-50.0 [facility] Comment on above: Performed By: #### C K, LIPASE, CBC, BMP, BNP, HEPATIC, HS TROP #### [address] Hemoglobin (Bld) [Mass/Vol] 9.3 g/dL Low 13.0-17.0 [facility] Comment on above: Performed By: #### C K, LIPASE, CBC, BMP, BNP, HEPATIC, HS TROP #### [address] Lymphocytes (Bld) [#/Vol] 1.5 10*3/uL Normal 1.00-4.8 [facility] Comment on above: Performed By: #### C K, LIPASE, CBC, BMP, BNP, HEPATIC, HS TROP #### [address] Lymphocytes/100 WBC (Bld) 43.4 % Normal . [facility] Comment on above: Performed By: #### C K, LIPASE, CBC, BMP, BNP, HEPATIC, HS TROP #### [address] MCH (RBC) [Entitic mass] 28.4 pg Normal 27.5-35.2 [facility] Comment on above: Performed By: #### C K, LIPASE, CBC, BMP, BNP, HEPATIC, HS TROP #### [address] MCV (RBC) [Entitic vol] 81.2 fL Low 83.5-101 [facility] Comment on above: Performed By: #### C K, LIPASE, CBC, BMP, BNP, HEPATIC, HS TROP #### [address] Mean Corpuscular HGB Conc 35.0 g/dL Normal 32.5-35.6 [facility] Comment on above: Performed By: #### C K, LIPASE, CBC, BMP, BNP, HEPATIC, HS TROP #### [address] Monocytes (Bld) [#/Vol] 0.3 10*3/uL Normal 0.0-0.8 [facility] Comment on above: Performed By: #### C K, LIPASE, CBC, BMP, BNP, HEPATIC, HS TROP #### [address] Monocytes/100 WBC (Bld) 8.5 % Normal . [facility] Comment on above: Performed By: #### C K, LIPASE, CBC, BMP, BNP, HEPATIC, HS TROP #### [address] Neutrophils (Bld) [#/Vol] 1.4 10*3/uL Low 1.8-7.7 [facility] Comment on above: Performed By: #### C K, LIPASE, CBC, BMP, BNP, HEPATIC, HS TROP #### [address] Neutrophils/100 WBC (Bld) 41.0 % Normal . [facility] Comment on above: Performed By: #### C K, LIPASE, CBC, BMP, BNP, HEPATIC, HS TROP #### [address] NRBC% 0.1 /100{WBC} Normal 0-0.5 [facility] Comment on above: Performed By: #### C K, LIPASE, CBC, BMP, BNP, HEPATIC, HS TROP #### [address] Platelet mean volume (Bld) [Entitic vol] 7.1 fL Normal 6.6-10.1 [facility] Comment on above: Performed By: #### C K, LIPASE, CBC, BMP, BNP, HEPATIC, HS TROP #### [place] [address] [place] Platelets (Bld) [#/Vol] 293 10*3/uL Normal 150-450 [facility] Comment on above: Performed By: #### C K, LIPASE, CBC, BMP, BNP, HEPATIC, HS TROP #### [address] RBC (Bld) [#/Vol] 3.26 10*6/uL Low 3.90-5.60 [facility] Comment on above: Performed By: #### C K, LIPASE, CBC, BMP, BNP, HEPATIC, HS TROP #### [address] WBC (Bld) [#/Vol] 3.5 10*3/uL Low 4.1-10.5 [facility] Comment on above: Performed By: #### C K, LIPASE, CBC, BMP, BNP, HEPATIC, HS TROP #### [address] Comprehensive Metabolic Pane delonte 10-11-2024 Albumin [Mass/Vol] 3.7 g/dL Normal 3.5-5.7 [facility] Comment on above: Performed By: #### C K, LIPASE, CBC, BMP, BNP, HEPATIC, HS TROP #### [address] Albumin/Globulin [Mass ratio] 1.5 {ratio} Normal [facility] Comment on above: Performed By: #### C K, LIPASE, CBC, BMP, BNP, HEPATIC, HS TROP #### [address] ALP [Catalytic activity/Vol] 67 U/L Normal 34-104 [facility] Comment on above: Performed By: #### C K, LIPASE, CBC, BMP, BNP, HEPATIC, HS TROP #### [address] ALT [Catalytic activity/Vol] 9 U/L Normal 7-52 [facility] Comment on above: Performed By: #### C K, LIPASE, CBC, BMP, BNP, HEPATIC, HS TROP #### [address] Anion gap [Moles/Vol] 9.9 mmol/L Normal 6.0-15.0 [facility] Comment on above: Performed By: #### C K, LIPASE, CBC, BMP, BNP, HEPATIC, HS TROP #### [address] AST [Catalytic activity/Vol] 8 U/L Low 13-39 [facility] Comment on above: Performed By: #### C K, LIPASE, CBC, BMP, BNP, HEPATIC, HS TROP #### [address] Bilirubin [Mass/Vol] 0.4 mg/dL Normal 0.3-1.0 [facility] Comment on above: Performed By: #### C K, LIPASE, CBC, BMP, BNP, HEPATIC, HS TROP #### [address] Calcium [Mass/Vol] 8.9 mg/dL Normal 8.6-10.3 [facility] Comment on above: Performed By: #### C K, LIPASE, CBC, BMP, BNP, HEPATIC, HS TROP #### [address] Chloride [Moles/Vol] 102 mmol/L Normal 98-107 [facility] Comment on above: Performed By: #### C K, LIPASE, CBC, BMP, BNP, HEPATIC, HS TROP #### [address] CO2 [Moles/Vol] 28.3 mmol/L Normal 21.0-31.0 [facility] Comment on above: Performed By: #### C K, LIPASE, CBC, BMP, BNP, HEPATIC, HS TROP #### [address] Creatinine [Mass/Vol] 0.54 mg/dL Low 0.70-1.30 [facility] Comment on above: Performed By: #### C K, LIPASE, CBC, BMP, BNP, HEPATIC, HS TROP #### [address] Creatinine Clr Calc Pharmacy 95.93 Normal [facility] Comment on above: Performed By: #### C K, LIPASE, CBC, BMP, BNP, HEPATIC, HS TROP #### [address] GFR/1.73 sq M.predicted MDRD (S/P/Bld) [Vol rate/Area] mL/min/{1.73_m2} Normal [facility] Comment on above: Performed By: #### C K, LIPASE, CBC, BMP, BNP, HEPATIC, HS TROP #### [facility] [address] Globulin (S) [Mass/Vol] 2.4 g/dL Normal [facility] Comment on above: Performed By: #### C K, LIPASE, CBC, BMP, BNP, HEPATIC, HS TROP #### [facility] [address] Glucose [Mass/Vol] 123 mg/dL High 70-100 [facility] Comment on above: Result Comment: [facility] Glucose Reference Range is dependent on time and content of last meal. Glucose of more than 200 mg/dL in a nonstressed, ambulatory subject supports the diagnosis of Diabetes Mellitus. ADA recommended reference range Performed By: #### C K, LIPASE, CBC, BMP, BNP, HEPATIC, HS TROP #### [address] Potassium [Moles/Vol] 4.2 mmol/L Normal 3.5-5.1 [facility] Comment on above: Performed By: #### C K, LIPASE, CBC, BMP, BNP, HEPATIC, HS TROP #### [address] Protein [Mass/Vol] 6.1 g/dL Low 6.4-8.9 [facility] Comment on above: Performed By: #### C K, LIPASE, CBC, BMP, BNP, HEPATIC, HS TROP #### [facility] [address] [place] [address] [place] Sodium [Moles/Vol] 136 mmol/L Normal 136-145 [facility] Comment on above: Performed By: #### C K, LIPASE, CBC, BMP, BNP, HEPATIC, HS TROP #### [address] Urea nitrogen [Mass/Vol] 11 mg/dL Normal 7-25 [facility] Comment on above: Performed By: #### C K, LIPASE, CBC, BMP, BNP, HEPATIC, HS TROP #### [facility] [address] Creatinine [Mass/volume] in Serum or PlasmaOrdered By: Abiola Benson on 10-11-2024 Creatinine [Mass/Vol] Creatinine [Mass/volume] in Serum or Plasma Low 0.70-1.30 [facility] Eosinophils Auto (Bld) [#/Vo l]Ordered By: Abiola Benson on 10-11-2024 Eosinophils (Bld) [#/Vol] Automated eosinophil count 0.0-0.45 [facility] Eosinophils/100 WBC Auto (Bl d)Ordered By: Abiola Benson on 10-11-2024 Eosinophils/100 WBC (Bld) Automated eosinophil % . [facility] Erythrocyte distribution wid th Auto (RBC) [Ratio]Ordered By: Abiola Benson on 10-11-2024 Erythrocyte distribution width (RBC) [Ratio] Erythrocyte distribution width [Ratio] by Automated count High 12.0-14.8 [facility] Globulin Calc (S) [Mass/Vol] Ordered By: Abiola Benson on 10-11-2024 Globulin (S) [Mass/Vol] Serum globulin measurement by calculation (mass/volume) [facility] Glucose Poct Glucometerson 1 12-12-2023 Glucose [Mass/Vol] 206 mg/dL Normal [facility] Comment on above: Result Comment: [facility] Glucose Reference Range is dependent on time and content of last meal. Glucose of more than 200 mg/dL in a nonstressed, ambulatory subject supports the diagnosis of Diabetes Mellitus. PERFORMED BY: [facility] [address] [place] [address] PATHOLOGIST [employer] VENUS NORIEGA M.D. Performed By: #### C K, LIPASE, CBC, BMP, BNP, HEPATIC, HS TROP #### [facility] [address] Glucose [Mass/Vol] 178 mg/dL Normal [facility] Comment on above: Result Comment: [place] [facility] Glucose Reference Range is dependent on time and content of last meal. Glucose of more than 200 mg/dL in a nonstressed, ambulatory subject supports the diagnosis of Diabetes Mellitus. PERFORMED BY: [place] [address] PATHOLOGIST [employer] VENUS NORIEGA M.D. Performed By: #### G LULS #### Point of Care testing , Glucose [Mass/Vol] 204 mg/dL Normal [facility] Comment on above: Result Comment: [place] [facility] Glucose Reference Range is dependent on time and content of last meal. Glucose of more than 200 mg/dL in a nonstressed, ambulatory subject supports the diagnosis of Diabetes Mellitus. PERFORMED BY: [place] [address] PATHOLOGIST [employer] VENUS NORIEGA M.D. Performed By: #### C K, LIPASE, CBC, BMP, BNP, HEPATIC, HS TROP #### [address] Glucose [Mass/Vol] 146 mg/dL Normal [facility] Comment on above: Result Comment: [place] om Glucose Reference Range is dependent on time and content of last meal. Glucose of more than 200 mg/dL in a nonstressed, ambulatory subject supports the diagnosis of Diabetes Mellitus. PERFORMED BY: [place] [address] PATHOLOGIST [employer] VENUS NORIEGA M.D. Performed By: #### C K, LIPASE, CBC, BMP, BNP, HEPATIC, HS TROP #### [address] Glucose [Mass/volume] in Ser um or PlasmaOrdered By: Abiola Benson on 10-11-2024 Glucose [Mass/Vol] Glucose [Mass/volume ] in Serum or Plasma High 70-100 [facility] Comment on above: ADA recommended refe rence rangeRandom Glucose Reference Range is dependent on time and content of last meal. Glucose of more than 200 mg/dL in a nonstressed, ambulatory subject supports the diagnosis of Diabetes Mellitus. Hematocrit Auto (Bld) [Volum e fraction]Ordered By: Abiola Benson on 10-11-2024 Hematocrit (Bld) [Volume fraction] Hematocrit [Volume Fraction] of Blood by Automated count Low 38.8-50.0 [facility] Hemoglobin [Mass/volume] in BloodOrdered By: Abiola Benson on 10-11-2024 Hemoglobin (Bld) [Mass/Vol] Hemoglobin [Mass/volume] in Blood Low 13.0-17.0 [facility] Leukocytes [#/volume] correc willian for nucleated erythrocytes in Blood by Automated counOrdered By: Abiola Benson on 10-11-2024 WBC corrected for nucl RBC Auto (Bld) [#/Vol] Leukocytes [#/volume] corrected for nucleated erythrocytes in Blood by Automated coun Low 4.1-10.5 [facility] Lymphocytes Auto (Bld) [#/Vo l]Ordered By: Abiola Benson on 10-11-2024 Lymphocytes (Bld) [#/Vol] Lymphocytes [#/volume] in Blood by Automated count 1.00-4.8 [facility] Lymphocytes/100 WBC Auto (Bl d)Ordered By: Abiola Benson on 10-11-2024 Lymphocytes/100 WBC (Bld) Lymphocytes/100 leukocytes in Blood by Automated count . [facility] MCH Auto (RBC) [Entitic mass ]Ordered By: Abiola Benson on 10-11-2024 MCH (RBC) [Entitic mass] MCH [Entitic mass] by Automated count 27.5-35.2 [facility] MCHC Auto (RBC) [Mass/Vol]Or dered By: Abiola Benson on 10-11-2024 MCHC (RBC) [Mass/Vol] MCHC [Mass/volume] by Automated count 32.5-35.6 [facility] MCV Auto (RBC) [Entitic vol] Ordered By: Abiola Benson on 10-11-2024 MCV (RBC) [Entitic vol] MCV [Entitic volume] by Automated count Low 83.5-101 [facility] Magnesiumon 10-11-2024 Magnesium [Mass/Vol] 1.8 mg/dL Low 1.9-2.7 [facility] Comment on above: Result Comment: PERF ORMED BY: [facility] [address] [place] [address] PATHOLOGIST [employer] VENUS NORIEGA M.D. Performed By: #### C K, LIPASE, CBC, BMP, BNP, HEPATIC, HS TROP #### [facility] [address] Magnesium [Mass/volume] in S chiara or PlasmaOrdered By: Abiola Benson on 10-11-2024 Magnesium [Mass/Vol] Magnesium [Mass/vol ume] in Serum or Plasma Low 1.9-2.7 [facility] Monocytes Auto (Bld) [#/Vol] Ordered By: Abiola Benson on 10-11-2024 Monocytes (Bld) [#/Vol] Automated blood monocyte count 0.0-0.8 [facility] Monocytes/100 WBC Auto (Bld) Ordered By: Abiola Benson on 10-11-2024 Monocytes/100 WBC (Bld) Automated monocyte % . [facility] Neutrophils Auto (Bld) [#/Vo l]Ordered By: Abiola Benson on 10-11-2024 Neutrophils (Bld) [#/Vol] Neutrophils [#/volume] in Blood by Automated count Low 1.8-7.7 [facility] Neutrophils/100 WBC Auto (Bl d)Ordered By: Abiola Benson on 10-11-2024 Neutrophils/100 WBC (Bld) Automated neutrophil % . [facility] No Panel InformationOrdered By: Abiola Benson on 10-11-2024 Estimated GFR (CKD-EPI) > 60.0 mL/Min [facility] Creatinine Clearance (Chem 95.93 [facility] Nucleated erythrocytes [Pres ence] in Blood by Automated countOrdered By: Abiola Benson on 10-11-2024 Nucleated RBC Auto Ql (Bld) Nucleated erythrocytes [Presence] in Blood by Automated count 0-0.5 [facility] Platelet mean volume Auto (B ld) [Entitic vol]Ordered By: Aibola Benson on 10-11-2024 Platelet mean volume (Bld) [Entitic vol] Platelet mean volume [Entitic volume] in Blood by Automated count 6.6-10.1 [facility] Platelets Auto (Bld) [#/Vol] Ordered By: Abiola Benson on 10-11-2024 Platelets (Bld) [#/Vol] Platelets [#/volume] in Blood by Automated count 150-450 [facility] Potassium [Moles/volume] in Serum or PlasmaOrdered By: Abiola Benson on 10-11-2024 Potassium [Moles/Vol] Potassium [Moles/volume] in Serum or Plasma 3.5-5.1 [facility] Protein [Mass/volume] in Ser um or PlasmaOrdered By: Abiola Benson on 10-11-2024 Protein [Mass/Vol] Protein [Mass/volume ] in Serum or Plasma Low 6.4-8.9 [facility] RBC Auto (Bld) [#/Vol]Ordere d By: Abiola Benson on 10-11-2024 RBC (Bld) [#/Vol] Erythrocytes [#/volu me] in Blood by Automated count Low 3.90-5.60 [facility] Serum or plasma albumin/glob ulin mass ratioOrdered By: Abiola Benson on 10-11-2024 Albumin/Globulin [Mass ratio] Serum or plasma albumin/globulin mass ratio [facility] Serum or plasma anion gap de terminationOrdered By: Abiola Benson on 10-11-2024 Anion gap [Moles/Vol] Serum or plasma an ion gap determination 6.0-15.0 [facility] Sodium [Moles/volume] in Ser um or PlasmaOrdered By: Abiola Benson on 10-11-2024 Sodium [Moles/Vol] Sodium [Moles/volume ] in Serum or Plasma 136-145 [facility] US venous duplex UE LTon US venous duplex UE LT [facility] [place] [address] Ultrasound Report Signed Patient: Vashti Massey MR#: [id number] : 1955 Acct:[id number] Age/Sex: 69 / M ADM Date: 10/06/24 Loc: Room: 3F3354-0 Type: ADM IN Attending Dr: Bryson Chavez MD Ordering Provider: Debbie Lundberg MD Date of Service: 10/09/24 US/US venous duplex UE LT: left arm swelling Copies to: MD Debbie Hutchinson MD Left upper extremity venous duplex [...] Javier Maria M.D.10/11/2024 10:33 AM Dictation Location: [place] [address] Tech: Colleen Jhon Transcribed By: CALVIN 10/11/24 1033 Dictated By: Javier Maria MD 10/11/24 1033 Signed By: 10/11/24 1033 Normal [facility] Urea nitrogen [Mass/volume] in Serum or PlasmaOrdered By: Abiola Benson on 10-11-2024 Urea nitrogen [Mass/Vol] Urea nitrogen [Mass/volume] in Serum or Plasma 05-20 [facility] WBC Auto (Bld) [#/Vol]Ordere d By: Abiola Benson on 10-11-2024 WBC (Bld) [#/Vol] Leukocytes [#/volume ] in Blood by Automated count Low 4.1-10.5 [facility] Complete Blood Count Auto Di ffon 10-10-2024 Basophils (Bld) [#/Vol] 0.1 10*3/uL Normal 0.0-0.2 [facility] Comment on above: Result Comment: PERF ORMED BY: [place] [address] PATHOLOGIST [employer] VENUS NORIEGA M.D. Performed By: #### C K, LIPASE, CBC, BMP, BNP, HEPATIC, HS TROP #### [address] Basophils/100 WBC (Bld) 2.1 % Normal . [facility] Comment on above: Performed By: #### C K, LIPASE, CBC, BMP, BNP, HEPATIC, HS TROP #### [address] Eosinophils (Bld) [#/Vol] 0.1 10*3/uL Normal 0.0-0.45 [facility] Comment on above: Performed By: #### C K, LIPASE, CBC, BMP, BNP, HEPATIC, HS TROP #### [address] Eosinophils/100 WBC (Bld) 3.7 % Normal . [facility] Comment on above: Performed By: #### C K, LIPASE, CBC, BMP, BNP, HEPATIC, HS TROP #### [address] Erythrocyte distribution width (RBC) [Ratio] 16.7 % High 12.0-14.8 [facility] Comment on above: Performed By: #### C K, LIPASE, CBC, BMP, BNP, HEPATIC, HS TROP #### [address] Hematocrit (Bld) [Volume fraction] 27.0 % Low 38.8-50.0 [facility] Comment on above: Performed By: #### C K, LIPASE, CBC, BMP, BNP, HEPATIC, HS TROP #### [address] Hemoglobin (Bld) [Mass/Vol] 9.3 g/dL Low 13.0-17.0 [facility] Comment on above: Performed By: #### C K, LIPASE, CBC, BMP, BNP, HEPATIC, HS TROP #### [address] Lymphocytes (Bld) [#/Vol] 1.0 10*3/uL Normal 1.00-4.8 [facility] Comment on above: Performed By: #### C K, LIPASE, CBC, BMP, BNP, HEPATIC, HS TROP #### [address] Lymphocytes/100 WBC (Bld) 32.3 % Normal . [facility] Comment on above: Performed By: #### C K, LIPASE, CBC, BMP, BNP, HEPATIC, HS TROP #### [address] MCH (RBC) [Entitic mass] 28.3 pg Normal 27.5-35.2 [facility] Comment on above: Performed By: #### C K, LIPASE, CBC, BMP, BNP, HEPATIC, HS TROP #### [address] MCV (RBC) [Entitic vol] 82.3 fL Low 83.5-101 [facility] Comment on above: Performed By: #### C K, LIPASE, CBC, BMP, BNP, HEPATIC, HS TROP #### [address] Mean Corpuscular HGB Conc 34.4 g/dL Normal 32.5-35.6 [facility] Comment on above: Performed By: #### C K, LIPASE, CBC, BMP, BNP, HEPATIC, HS TROP #### [address] Monocytes (Bld) [#/Vol] 0.2 10*3/uL Normal 0.0-0.8 [facility] Comment on above: Performed By: #### C K, LIPASE, CBC, BMP, BNP, HEPATIC, HS TROP #### [address] Monocytes/100 WBC (Bld) 7.8 % Normal . [facility] Comment on above: Performed By: #### C K, LIPASE, CBC, BMP, BNP, HEPATIC, HS TROP #### [address] Neutrophils (Bld) [#/Vol] 1.7 10*3/uL Low 1.8-7.7 [facility] Comment on above: Performed By: #### C K, LIPASE, CBC, BMP, BNP, HEPATIC, HS TROP #### [address] Neutrophils/100 WBC (Bld) 54.1 % Normal . [facility] Comment on above: Performed By: #### C K, LIPASE, CBC, BMP, BNP, HEPATIC, HS TROP #### [address] NRBC% 0.1 /100{WBC} Normal 0-0.5 [facility] Comment on above: Performed By: #### C K, LIPASE, CBC, BMP, BNP, HEPATIC, HS TROP #### [address] Platelet mean volume (Bld) [Entitic vol] 6.7 fL Normal 6.6-10.1 [facility] Comment on above: Performed By: #### C K, LIPASE, CBC, BMP, BNP, HEPATIC, HS TROP #### [address] Platelets (Bld) [#/Vol] 293 10*3/uL Normal 150-450 [facility] Comment on above: Performed By: #### C K, LIPASE, CBC, BMP, BNP, HEPATIC, HS TROP #### [place] [address] [place] RBC (Bld) [#/Vol] 3.28 10*6/uL Low 3.90-5.60 [facility] Comment on above: Performed By: #### C K, LIPASE, CBC, BMP, BNP, HEPATIC, HS TROP #### [address] WBC (Bld) [#/Vol] 3.1 10*3/uL Low 4.1-10.5 [facility] Comment on above: Performed By: #### C K, LIPASE, CBC, BMP, BNP, HEPATIC, HS TROP #### [address] Comprehensive Metabolic Pane delonte 10-10-2024 Albumin [Mass/Vol] 3.8 g/dL Normal 3.5-5.7 [facility] Comment on above: Performed By: #### C K, LIPASE, CBC, BMP, BNP, HEPATIC, HS TROP #### [address] Albumin/Globulin [Mass ratio] 1.7 {ratio} Normal [facility] Comment on above: Performed By: #### C K, LIPASE, CBC, BMP, BNP, HEPATIC, HS TROP #### [address] ALP [Catalytic activity/Vol] 71 U/L Normal 34-104 [facility] Comment on above: Performed By: #### C K, LIPASE, CBC, BMP, BNP, HEPATIC, HS TROP #### [address] ALT [Catalytic activity/Vol] 8 U/L Normal 7-52 [facility] Comment on above: Performed By: #### C K, LIPASE, CBC, BMP, BNP, HEPATIC, HS TROP #### [address] Anion gap [Moles/Vol] 9.6 mmol/L Normal 6.0-15.0 [facility] Comment on above: Performed By: #### C K, LIPASE, CBC, BMP, BNP, HEPATIC, HS TROP #### [address] AST [Catalytic activity/Vol] 7 U/L Low 13-39 [facility] Comment on above: Performed By: #### C K, LIPASE, CBC, BMP, BNP, HEPATIC, HS TROP #### [address] Bilirubin [Mass/Vol] 0.3 mg/dL Normal 0.3-1.0 [facility] Comment on above: Performed By: #### C K, LIPASE, CBC, BMP, BNP, HEPATIC, HS TROP #### [address] Calcium [Mass/Vol] 8.8 mg/dL Normal 8.6-10.3 [facility] Comment on above: Performed By: #### C K, LIPASE, CBC, BMP, BNP, HEPATIC, HS TROP #### [address] Chloride [Moles/Vol] 100 mmol/L Normal 98-107 [facility] Comment on above: Performed By: #### C K, LIPASE, CBC, BMP, BNP, HEPATIC, HS TROP #### [address] CO2 [Moles/Vol] 28.5 mmol/L Normal 21.0-31.0 [facility] Comment on above: Performed By: #### C K, LIPASE, CBC, BMP, BNP, HEPATIC, HS TROP #### [address] Creatinine [Mass/Vol] 0.56 mg/dL Low 0.70-1.30 [facility] Comment on above: Performed By: #### C K, LIPASE, CBC, BMP, BNP, HEPATIC, HS TROP #### [address] Creatinine Clr Calc Pharmacy 95.93 Normal [facility] Comment on above: Performed By: #### C K, LIPASE, CBC, BMP, BNP, HEPATIC, HS TROP #### [address] GFR/1.73 sq M.predicted MDRD (S/P/Bld) [Vol rate/Area] mL/min/{1.73_m2} Normal [facility] Comment on above: Performed By: #### C K, LIPASE, CBC, BMP, BNP, HEPATIC, HS TROP #### [address] Globulin (S) [Mass/Vol] 2.3 g/dL Normal [facility] Comment on above: Performed By: #### C K, LIPASE, CBC, BMP, BNP, HEPATIC, HS TROP #### [address] Glucose [Mass/Vol] 216 mg/dL High 70-100 [facility] Comment on above: Result Comment: [place] om Glucose Reference Range is dependent on time and content of last meal. Glucose of more than 200 mg/dL in a nonstressed, ambulatory subject supports the diagnosis of Diabetes Mellitus. ADA recommended reference range Performed By: #### C K, LIPASE, CBC, BMP, BNP, HEPATIC, HS TROP #### [address] Potassium [Moles/Vol] 4.1 mmol/L Normal 3.5-5.1 [facility] Comment on above: Performed By: #### C K, LIPASE, CBC, BMP, BNP, HEPATIC, HS TROP #### [address] Protein [Mass/Vol] 6.1 g/dL Low 6.4-8.9 [facility] Comment on above: Performed By: #### C K, LIPASE, CBC, BMP, BNP, HEPATIC, HS TROP #### [address] Sodium [Moles/Vol] 134 mmol/L Low 136-145 [facility] Comment on above: Performed By: #### C K, LIPASE, CBC, BMP, BNP, HEPATIC, HS TROP #### [address] Urea nitrogen [Mass/Vol] 12 mg/dL Normal 7-25 [facility] Comment on above: Performed By: #### C K, LIPASE, CBC, BMP, BNP, HEPATIC, HS TROP #### [address] Glucose Poct Glucometerson 1 12-11-2023 Glucose [Mass/Vol] 245 mg/dL Normal [facility] Comment on above: Result Comment: [place] om Glucose Reference Range is dependent on time and content of last meal. Glucose of more than 200 mg/dL in a nonstressed, ambulatory subject supports the diagnosis of Diabetes Mellitus. PERFORMED BY: [place] [address] PATHOLOGIST [employer] VENUS NORIEGA M.D. Performed By: #### C K, LIPASE, CBC, BMP, BNP, HEPATIC, HS TROP #### [address] Commemt1 Glu2: Cleaned Meter Normal The [facility] Comment on above: Result Comment: PERF ORMED BY: [place] [address] PATHOLOGIST [employer] VENUS NORIEGA M.D. Performed By: #### C K, LIPASE, CBC, BMP, BNP, HEPATIC, HS TROP #### [address] Glucose [Mass/Vol] 240 mg/dL Normal [facility] Comment on above: Result Comment: [place] om Glucose Reference Range is dependent on time and content of last meal. Glucose of more than 200 mg/dL in a nonstressed, ambulatory subject supports the diagnosis of Diabetes Mellitus. Performed By: #### C K, LIPASE, CBC, BMP, BNP, HEPATIC, HS TROP #### [address] Commemt1 Glu2: Cleaned Meter Normal [facility] Comment on above: Result Comment: PERF ORMED BY: [place] [address] PATHOLOGIST [employer] VENUS NORIEGA M.D. Performed By: #### C K, LIPASE, CBC, BMP, BNP, HEPATIC, HS TROP #### [address] Glucose [Mass/Vol] 223 mg/dL Normal [facility] Comment on above: Result Comment: [place] om Glucose Reference Range is dependent on time and content of last meal. Glucose of more than 200 mg/dL in a nonstressed, ambulatory subject supports the diagnosis of Diabetes Mellitus. Performed By: #### C K, LIPASE, CBC, BMP, BNP, HEPATIC, HS TROP #### [address] Commemt1 Glu2: Cleaned Meter Normal [facility] Comment on above: Result Comment: PERF ORMED BY: [place] [address] PATHOLOGIST [employer] VENUS NORIEGA M.D. Performed By: #### C K, LIPASE, CBC, BMP, BNP, HEPATIC, HS TROP #### [address] Glucose [Mass/Vol] 154 mg/dL Normal [facility] Comment on above: Result Comment: [facility] Glucose Reference Range is dependent on time and content of last meal. Glucose of more than 200 mg/dL in a nonstressed, ambulatory subject supports the diagnosis of Diabetes Mellitus. Performed By: #### C K, LIPASE, CBC, BMP, BNP, HEPATIC, HS TROP #### [address] Magnesiumon 10-10-2024 Magnesium [Mass/Vol] 1.8 mg/dL Low 1.9-2.7 [facility] Comment on above: Result Comment: PERF ORMED BY: [place] [address] PATHOLOGIST [employer] VENUS NORIEGA M.D. Performed By: #### C K, LIPASE, CBC, BMP, BNP, HEPATIC, HS TROP #### [address] Complete Blood Count Auto Di ffon 10-09-2024 Basophils (Bld) [#/Vol] 0.1 10*3/uL Normal 0.0-0.2 [facility] Comment on above: Result Comment: PERF ORMED BY: [place] [address] PATHOLOGIST [employer] VENUS NORIEGA M.D. Performed By: #### C K, LIPASE, CBC, BMP, BNP, HEPATIC, HS TROP #### [address] Basophils/100 WBC (Bld) 1.3 % Normal . [facility] Comment on above: Performed By: #### C K, LIPASE, CBC, BMP, BNP, HEPATIC, HS TROP #### [address] Eosinophils (Bld) [#/Vol] 0.1 10*3/uL Normal 0.0-0.45 [facility] Comment on above: Performed By: #### C K, LIPASE, CBC, BMP, BNP, HEPATIC, HS TROP #### [address] Eosinophils/100 WBC (Bld) 2.7 % Normal . [facility] Comment on above: Performed By: #### C K, LIPASE, CBC, BMP, BNP, HEPATIC, HS TROP #### [address] Erythrocyte distribution width (RBC) [Ratio] 17.1 % High 12.0-14.8 [facility] Comment on above: Performed By: #### C K, LIPASE, CBC, BMP, BNP, HEPATIC, HS TROP #### [address] Hematocrit (Bld) [Volume fraction] 26.6 % Low 38.8-50.0 [facility] Comment on above: Performed By: #### C K, LIPASE, CBC, BMP, BNP, HEPATIC, HS TROP #### [address] Hemoglobin (Bld) [Mass/Vol] 9.1 g/dL Low 13.0-17.0 [facility] Comment on above: Performed By: #### C K, LIPASE, CBC, BMP, BNP, HEPATIC, HS TROP #### [address] Lymphocytes (Bld) [#/Vol] 1.2 10*3/uL Normal 1.00-4.8 [facility] Comment on above: Performed By: #### C K, LIPASE, CBC, BMP, BNP, HEPATIC, HS TROP #### [address] Lymphocytes/100 WBC (Bld) 28.2 % Normal . [facility] Comment on above: Performed By: #### C K, LIPASE, CBC, BMP, BNP, HEPATIC, HS TROP #### [address] MCH (RBC) [Entitic mass] 27.9 pg Normal 27.5-35.2 [facility] Comment on above: Performed By: #### C K, LIPASE, CBC, BMP, BNP, HEPATIC, HS TROP #### [address] MCV (RBC) [Entitic vol] 81.5 fL Low 83.5-101 [facility] Comment on above: Performed By: #### C K, LIPASE, CBC, BMP, BNP, HEPATIC, HS TROP #### [address] Mean Corpuscular HGB Conc 34.2 g/dL Normal 32.5-35.6 [facility] Comment on above: Performed By: #### C K, LIPASE, CBC, BMP, BNP, HEPATIC, HS TROP #### [address] Monocytes (Bld) [#/Vol] 0.3 10*3/uL Normal 0.0-0.8 [facility] Comment on above: Performed By: #### C K, LIPASE, CBC, BMP, BNP, HEPATIC, HS TROP #### [address] Monocytes/100 WBC (Bld) 7.3 % Normal . [facility] Comment on above: Performed By: #### C K, LIPASE, CBC, BMP, BNP, HEPATIC, HS TROP #### [address] Neutrophils (Bld) [#/Vol] 2.5 10*3/uL Normal 1.8-7.7 [facility] Comment on above: Performed By: #### C K, LIPASE, CBC, BMP, BNP, HEPATIC, HS TROP #### [address] Neutrophils/100 WBC (Bld) 60.5 % Normal . [facility] Comment on above: Performed By: #### C K, LIPASE, CBC, BMP, BNP, HEPATIC, HS TROP #### [address] NRBC% 0.1 /100{WBC} Normal 0-0.5 [facility] Comment on above: Performed By: #### C K, LIPASE, CBC, BMP, BNP, HEPATIC, HS TROP #### [address] Platelet mean volume (Bld) [Entitic vol] 7.0 fL Normal 6.6-10.1 [facility] Comment on above: Performed By: #### C K, LIPASE, CBC, BMP, BNP, HEPATIC, HS TROP #### [address] Platelets (Bld) [#/Vol] 308 10*3/uL Normal 150-450 [facility] Comment on above: Performed By: #### C K, LIPASE, CBC, BMP, BNP, HEPATIC, HS TROP #### [address] RBC (Bld) [#/Vol] 3.26 10*6/uL Low 3.90-5.60 [facility] Comment on above: Performed By: #### C K, LIPASE, CBC, BMP, BNP, HEPATIC, HS TROP #### [address] WBC (Bld) [#/Vol] 4.2 10*3/uL Normal 4.1-10.5 [facility] Comment on above: Performed By: #### C K, LIPASE, CBC, BMP, BNP, HEPATIC, HS TROP #### [address] Comprehensive Metabolic Pane delonte 10-09-2024 Albumin [Mass/Vol] 3.9 g/dL Normal 3.5-5.7 [facility] Comment on above: Performed By: #### C K, LIPASE, CBC, BMP, BNP, HEPATIC, HS TROP #### [facility] [address] Albumin/Globulin [Mass ratio] 1.8 {ratio} Normal [facility] Comment on above: Performed By: #### C K, LIPASE, CBC, BMP, BNP, HEPATIC, HS TROP #### [facility] [address] ALP [Catalytic activity/Vol] 57 U/L Normal 34-104 [facility] Comment on above: Performed By: #### C K, LIPASE, CBC, BMP, BNP, HEPATIC, HS TROP #### [address] ALT [Catalytic activity/Vol] 8 U/L Normal 7-52 [facility] Comment on above: Performed By: #### C K, LIPASE, CBC, BMP, BNP, HEPATIC, HS TROP #### [address] Anion gap [Moles/Vol] 9.3 mmol/L Normal 6.0-15.0 [facility] Comment on above: Performed By: #### C K, LIPASE, CBC, BMP, BNP, HEPATIC, HS TROP #### [address] AST [Catalytic activity/Vol] 8 U/L Low 13-39 [facility] Comment on above: Performed By: #### C K, LIPASE, CBC, BMP, BNP, HEPATIC, HS TROP #### [place] [address] [place] Bilirubin [Mass/Vol] 0.4 mg/dL Normal 0.3-1.0 [facility] Comment on above: Performed By: #### C K, LIPASE, CBC, BMP, BNP, HEPATIC, HS TROP #### [place] [address] [place] Calcium [Mass/Vol] 8.7 mg/dL Normal 8.6-10.3 [facility] Comment on above: Performed By: #### C K, LIPASE, CBC, BMP, BNP, HEPATIC, HS TROP #### [address] Chloride [Moles/Vol] 100 mmol/L Normal 98-107 [facility] Comment on above: Performed By: #### C K, LIPASE, CBC, BMP, BNP, HEPATIC, HS TROP #### [address] CO2 [Moles/Vol] 29.0 mmol/L Normal 21.0-31.0 [facility] Comment on above: Performed By: #### C K, LIPASE, CBC, BMP, BNP, HEPATIC, HS TROP #### [address] Creatinine [Mass/Vol] 0.63 mg/dL Low 0.70-1.30 [facility] Comment on above: Performed By: #### C K, LIPASE, CBC, BMP, BNP, HEPATIC, HS TROP #### [address] Creatinine Clr Calc Pharmacy 95.93 Normal [facility] Comment on above: Performed By: #### C K, LIPASE, CBC, BMP, BNP, HEPATIC, HS TROP #### [address] GFR/1.73 sq M.predicted MDRD (S/P/Bld) [Vol rate/Area] mL/min/{1.73_m2} Normal [facility] Comment on above: Performed By: #### C K, LIPASE, CBC, BMP, BNP, HEPATIC, HS TROP #### [address] Globulin (S) [Mass/Vol] 2.2 g/dL Normal [facility] Comment on above: Performed By: #### C K, LIPASE, CBC, BMP, BNP, HEPATIC, HS TROP #### [address] Glucose [Mass/Vol] 221 mg/dL High 70-100 [facility] Comment on above: Result Comment: [facility] Glucose Reference Range is dependent on time and content of last meal. Glucose of more than 200 mg/dL in a nonstressed, ambulatory subject supports the diagnosis of Diabetes Mellitus. ADA recommended reference range Performed By: #### C K, LIPASE, CBC, BMP, BNP, HEPATIC, HS TROP #### [address] Potassium [Moles/Vol] 4.3 mmol/L Normal 3.5-5.1 [facility] Comment on above: Performed By: #### C K, LIPASE, CBC, BMP, BNP, HEPATIC, HS TROP #### [address] Protein [Mass/Vol] 6.1 g/dL Low 6.4-8.9 [facility] Comment on above: Performed By: #### C K, LIPASE, CBC, BMP, BNP, HEPATIC, HS TROP #### [address] Sodium [Moles/Vol] 134 mmol/L Low 136-145 [facility] Comment on above: Performed By: #### C K, LIPASE, CBC, BMP, BNP, HEPATIC, HS TROP #### [address] Urea nitrogen [Mass/Vol] 15 mg/dL Normal 7-25 [facility] Comment on above: Performed By: #### C K, LIPASE, CBC, BMP, BNP, HEPATIC, HS TROP #### [address] Glucose Poct Glucometerson 1 12-10-2023 Glucose [Mass/Vol] 208 mg/dL Normal [facility] Comment on above: Result Comment: [facility] Glucose Reference Range is dependent on time and content of last meal. Glucose of more than 200 mg/dL in a nonstressed, ambulatory subject supports the diagnosis of Diabetes Mellitus. PERFORMED BY: [place] [address] PATHOLOGIST [employer] VENUS NORIEGA M.D. Performed By: #### C K, LIPASE, CBC, BMP, BNP, HEPATIC, HS TROP #### [address] Glucose [Mass/Vol] 242 mg/dL Normal [facility] Comment on above: Result Comment: [place] om Glucose Reference Range is dependent on time and content of last meal. Glucose of more than 200 mg/dL in a nonstressed, ambulatory subject supports the diagnosis of Diabetes Mellitus. PERFORMED BY: [place] [address] PATHOLOGIST [employer] VENUS NORIEGA M.D. Performed By: #### C K, LIPASE, CBC, BMP, BNP, HEPATIC, HS TROP #### [address] Glucose [Mass/Vol] 220 mg/dL Normal [facility] Comment on above: Result Comment: [place] om Glucose Reference Range is dependent on time and content of last meal. Glucose of more than 200 mg/dL in a nonstressed, ambulatory subject supports the diagnosis of Diabetes Mellitus. PERFORMED BY: [place] [address] PATHOLOGIST [employer] V[employer]US NORIEGA M.D. Performed By: #### C K, LIPASE, CBC, BMP, BNP, HEPATIC, HS TROP #### [address] Glucose [Mass/Vol] 148 mg/dL Normal [facility] Comment on above: Result Comment: [place] om Glucose Reference Range is dependent on time and content of last meal. Glucose of more than 200 mg/dL in a nonstressed, ambulatory subject supports the diagnosis of Diabetes Mellitus. PERFORMED BY: [place] [address] PATHOLOGIST [employer] V[employer]US NORIEGA M.D. Performed By: #### C K, LIPASE, CBC, BMP, BNP, HEPATIC, HS TROP #### [address] Magnesiumon 10-09-2024 Magnesium [Mass/Vol] 1.8 mg/dL Low 1.9-2.7 [facility] Comment on above: Result Comment: PERF ORMED BY: [place] [address] PATHOLOGIST [employer] V[employer]US NORIEGA M.D. Performed By: #### C K, LIPASE, CBC, BMP, BNP, HEPATIC, HS TROP #### [address] Phosphate [Mass/volume] in S chiara or PlasmaOrdered By: Debbie Lundberg on 10-09-2024 Phosphate [Mass/Vol] Phosphate [Mass/vol ume] in Serum or Plasma 2.5-4.5 [facility] Phosphoruson 10-09-2024 Phosphate [Mass/Vol] 3.2 mg/dL Normal 2.5-4.5 [facility] Comment on above: Performed By: #### C K, LIPASE, CBC, BMP, BNP, HEPATIC, HS TROP #### [address] Complete Blood Count Auto Di ffon 10-08-2024 Basophils (Bld) [#/Vol] 0.1 10*3/uL Normal 0.0-0.2 [facility] Comment on above: Result Comment: PERF ORMED BY: [place] [address] PATHOLOGIST [employer] V[employer]US NORIEGA M.D. Performed By: #### C K, LIPASE, CBC, BMP, BNP, HEPATIC, HS TROP #### [address] Basophils/100 WBC (Bld) 2.5 % Normal . [facility] Comment on above: Performed By: #### C K, LIPASE, CBC, BMP, BNP, HEPATIC, HS TROP #### [address] Eosinophils (Bld) [#/Vol] 0.1 10*3/uL Normal 0.0-0.45 [facility] Comment on above: Performed By: #### C K, LIPASE, CBC, BMP, BNP, HEPATIC, HS TROP #### [address] Eosinophils/100 WBC (Bld) 3.3 % Normal . [facility] Comment on above: Performed By: #### C K, LIPASE, CBC, BMP, BNP, HEPATIC, HS TROP #### [address] Erythrocyte distribution width (RBC) [Ratio] 17.0 % High 12.0-14.8 [facility] Comment on above: Performed By: #### C K, LIPASE, CBC, BMP, BNP, HEPATIC, HS TROP #### [address] Hematocrit (Bld) [Volume fraction] 26.3 % Low 38.8-50.0 [facility] Comment on above: Performed By: #### C K, LIPASE, CBC, BMP, BNP, HEPATIC, HS TROP #### [address] Hemoglobin (Bld) [Mass/Vol] 9.0 g/dL Low 13.0-17.0 [facility] Comment on above: Performed By: #### C K, LIPASE, CBC, BMP, BNP, HEPATIC, HS TROP #### [address] Lymphocytes (Bld) [#/Vol] 1.1 10*3/uL Normal 1.00-4.8 [facility] Comment on above: Performed By: #### C K, LIPASE, CBC, BMP, BNP, HEPATIC, HS TROP #### [address] Lymphocytes/100 WBC (Bld) 39.6 % Normal . [facility] Comment on above: Performed By: #### C K, LIPASE, CBC, BMP, BNP, HEPATIC, HS TROP #### [address] MCH (RBC) [Entitic mass] 27.8 pg Normal 27.5-35.2 [facility] Comment on above: Performed By: #### C K, LIPASE, CBC, BMP, BNP, HEPATIC, HS TROP #### [address] MCV (RBC) [Entitic vol] 81.0 fL Low 83.5-101 [facility] Comment on above: Performed By: #### C K, LIPASE, CBC, BMP, BNP, HEPATIC, HS TROP #### [address] Mean Corpuscular HGB Conc 34.2 g/dL Normal 32.5-35.6 [facility] Comment on above: Performed By: #### C K, LIPASE, CBC, BMP, BNP, HEPATIC, HS TROP #### [address] Monocytes (Bld) [#/Vol] 0.2 10*3/uL Normal 0.0-0.8 [facility] Comment on above: Performed By: #### C K, LIPASE, CBC, BMP, BNP, HEPATIC, HS TROP #### [address] Monocytes/100 WBC (Bld) 7.2 % Normal . [facility] Comment on above: Performed By: #### C K, LIPASE, CBC, BMP, BNP, HEPATIC, HS TROP #### [address] Neutrophils (Bld) [#/Vol] 1.3 10*3/uL Low 1.8-7.7 [facility] Comment on above: Performed By: #### C K, LIPASE, CBC, BMP, BNP, HEPATIC, HS TROP #### [address] Neutrophils/100 WBC (Bld) 47.4 % Normal . [facility] Comment on above: Performed By: #### C K, LIPASE, CBC, BMP, BNP, HEPATIC, HS TROP #### [address] NRBC% 0.1 /100{WBC} Normal 0-0.5 [facility] Comment on above: Performed By: #### C K, LIPASE, CBC, BMP, BNP, HEPATIC, HS TROP #### [address] Platelet mean volume (Bld) [Entitic vol] 7.0 fL Normal 6.6-10.1 [facility] Comment on above: Performed By: #### C K, LIPASE, CBC, BMP, BNP, HEPATIC, HS TROP #### [facility] [address] Platelets (Bld) [#/Vol] 306 10*3/uL Normal 150-450 [facility] Comment on above: Performed By: #### C K, LIPASE, CBC, BMP, BNP, HEPATIC, HS TROP #### [address] RBC (Bld) [#/Vol] 3.24 10*6/uL Low 3.90-5.60 [facility] Comment on above: Performed By: #### C K, LIPASE, CBC, BMP, BNP, HEPATIC, HS TROP #### [address] WBC (Bld) [#/Vol] 2.7 10*3/uL Low 4.1-10.5 [facility] Comment on above: Performed By: #### C K, LIPASE, CBC, BMP, BNP, HEPATIC, HS TROP #### [place] [address] [place] Basophils (Bld) [#/Vol] 0.1 10*3/uL Normal 0.0-0.2 [facility] Comment on above: Result Comment: PERF ORMED BY: [place] [address] PATHOLOGIST [employer] VENUS NORIEGA M.D. Performed By: #### C K, LIPASE, CBC, BMP, BNP, HEPATIC, HS TROP #### [address] Basophils/100 WBC (Bld) 2.0 % Normal . [facility] Comment on above: Performed By: #### C K, LIPASE, CBC, BMP, BNP, HEPATIC, HS TROP #### [address] Eosinophils (Bld) [#/Vol] 0.1 10*3/uL Normal 0.0-0.45 [facility] Comment on above: Performed By: #### C K, LIPASE, CBC, BMP, BNP, HEPATIC, HS TROP #### [address] Eosinophils/100 WBC (Bld) 4.3 % Normal . [facility] Comment on above: Performed By: #### C K, LIPASE, CBC, BMP, BNP, HEPATIC, HS TROP #### [address] Erythrocyte distribution width (RBC) [Ratio] 17.1 % High 12.0-14.8 [facility] Comment on above: Performed By: #### C K, LIPASE, CBC, BMP, BNP, HEPATIC, HS TROP #### [address] Hematocrit (Bld) [Volume fraction] 26.5 % Low 38.8-50.0 [facility] Comment on above: Performed By: #### C K, LIPASE, CBC, BMP, BNP, HEPATIC, HS TROP #### [address] Hemoglobin (Bld) [Mass/Vol] 9.2 g/dL Low 13.0-17.0 [facility] Comment on above: Performed By: #### C K, LIPASE, CBC, BMP, BNP, HEPATIC, HS TROP #### [address] Lymphocytes (Bld) [#/Vol] 1.3 10*3/uL Normal 1.00-4.8 [facility] Comment on above: Performed By: #### C K, LIPASE, CBC, BMP, BNP, HEPATIC, HS TROP #### [place] [address] [place] Lymphocytes/100 WBC (Bld) 45.9 % Normal . [facility] Comment on above: Performed By: #### C K, LIPASE, CBC, BMP, BNP, HEPATIC, HS TROP #### [address] MCH (RBC) [Entitic mass] 28.5 pg Normal 27.5-35.2 [facility] Comment on above: Performed By: #### C K, LIPASE, CBC, BMP, BNP, HEPATIC, HS TROP #### [address] MCV (RBC) [Entitic vol] 81.8 fL Low 83.5-101 [facility] Comment on above: Performed By: #### C K, LIPASE, CBC, BMP, BNP, HEPATIC, HS TROP #### [address] Mean Corpuscular HGB Conc 34.9 g/dL Normal 32.5-35.6 [facility] Comment on above: Performed By: #### C K, LIPASE, CBC, BMP, BNP, HEPATIC, HS TROP #### [address] Monocytes (Bld) [#/Vol] 0.2 10*3/uL Normal 0.0-0.8 [facility] Comment on above: Performed By: #### C K, LIPASE, CBC, BMP, BNP, HEPATIC, HS TROP #### [address] Monocytes/100 WBC (Bld) 7.1 % Normal . [facility] Comment on above: Performed By: #### C K, LIPASE, CBC, BMP, BNP, HEPATIC, HS TROP #### [address] Neutrophils (Bld) [#/Vol] 1.1 10*3/uL Low 1.8-7.7 [facility] Comment on above: Performed By: #### C K, LIPASE, CBC, BMP, BNP, HEPATIC, HS TROP #### [place] [address] [place] Neutrophils/100 WBC (Bld) 40.7 % Normal . [facility] Comment on above: Performed By: #### C K, LIPASE, CBC, BMP, BNP, HEPATIC, HS TROP #### [address] NRBC% 0.1 /100{WBC} Normal 0-0.5 [facility] Comment on above: Performed By: #### C K, LIPASE, CBC, BMP, BNP, HEPATIC, HS TROP #### [address] Platelet mean volume (Bld) [Entitic vol] 7.3 fL Normal 6.6-10.1 [facility] Comment on above: Performed By: #### C K, LIPASE, CBC, BMP, BNP, HEPATIC, HS TROP #### [address] Platelets (Bld) [#/Vol] 284 10*3/uL Normal 150-450 [facility] Comment on above: Performed By: #### C K, LIPASE, CBC, BMP, BNP, HEPATIC, HS TROP #### [address] RBC (Bld) [#/Vol] 3.24 10*6/uL Low 3.90-5.60 [facility] Comment on above: Performed By: #### C K, LIPASE, CBC, BMP, BNP, HEPATIC, HS TROP #### [address] WBC (Bld) [#/Vol] 2.8 10*3/uL Low 4.1-10.5 [facility] Comment on above: Performed By: #### C K, LIPASE, CBC, BMP, BNP, HEPATIC, HS TROP #### [address] Comprehensive Metabolic Pane [facility] 10-08-2024 Albumin [Mass/Vol] 3.8 g/dL Normal 3.5-5.7 [facility] Comment on above: Performed By: #### C K, LIPASE, CBC, BMP, BNP, HEPATIC, HS TROP #### [address] Albumin/Globulin [Mass ratio] 1.7 {ratio} Normal [facility] Comment on above: Performed By: #### C K, LIPASE, CBC, BMP, BNP, HEPATIC, HS TROP #### [address] ALP [Catalytic activity/Vol] 55 U/L Normal 34-104 [facility] Comment on above: Performed By: #### C K, LIPASE, CBC, BMP, BNP, HEPATIC, HS TROP #### [address] ALT [Catalytic activity/Vol] 8 U/L Normal 7-52 [facility] Comment on above: Performed By: #### C K, LIPASE, CBC, BMP, BNP, HEPATIC, HS TROP #### [address] Anion gap [Moles/Vol] 9.1 mmol/L Normal 6.0-15.0 [facility] Comment on above: Performed By: #### C K, LIPASE, CBC, BMP, BNP, HEPATIC, HS TROP #### [address] AST [Catalytic activity/Vol] 9 U/L Low 13-39 [facility] Comment on above: Performed By: #### C K, LIPASE, CBC, BMP, BNP, HEPATIC, HS TROP #### [address] Bilirubin [Mass/Vol] 0.4 mg/dL Normal 0.3-1.0 [facility] Comment on above: Performed By: #### C K, LIPASE, CBC, BMP, BNP, HEPATIC, HS TROP #### [address] Calcium [Mass/Vol] 8.7 mg/dL Normal 8.6-10.3 [facility] Comment on above: Performed By: #### C K, LIPASE, CBC, BMP, BNP, HEPATIC, HS TROP #### [address] Chloride [Moles/Vol] 101 mmol/L Normal 98-107 [facility] Comment on above: Performed By: #### C K, LIPASE, CBC, BMP, BNP, HEPATIC, HS TROP #### [address] CO2 [Moles/Vol] 29.9 mmol/L Normal 21.0-31.0 [facility] Comment on above: Performed By: #### C K, LIPASE, CBC, BMP, BNP, HEPATIC, HS TROP #### [address] Creatinine [Mass/Vol] 0.64 mg/dL Low 0.70-1.30 [facility] Comment on above: Performed By: #### C K, LIPASE, CBC, BMP, BNP, HEPATIC, HS TROP #### [address] Creatinine Clr Calc Pharmacy 95.88 Normal [facility] Comment on above: Performed By: #### C K, LIPASE, CBC, BMP, BNP, HEPATIC, HS TROP #### [address] GFR/1.73 sq M.predicted MDRD (S/P/Bld) [Vol rate/Area] mL/min/{1.73_m2} Normal [facility] Comment on above: Performed By: #### C K, LIPASE, CBC, BMP, BNP, HEPATIC, HS TROP #### [address] Globulin (S) [Mass/Vol] 2.2 g/dL Normal [facility] Comment on above: Performed By: #### C K, LIPASE, CBC, BMP, BNP, HEPATIC, HS TROP #### [address] Glucose [Mass/Vol] 191 mg/dL High 70-100 [facility] Comment on above: Result Comment: [facility] Glucose Reference Range is dependent on time and content of last meal. Glucose of more than 200 mg/dL in a nonstressed, ambulatory subject supports the diagnosis of Diabetes Mellitus. ADA recommended reference range Performed By: #### C K, LIPASE, CBC, BMP, BNP, HEPATIC, HS TROP #### [address] Potassium [Moles/Vol] 4.0 mmol/L Normal 3.5-5.1 [facility] Comment on above: Performed By: #### C K, LIPASE, CBC, BMP, BNP, HEPATIC, HS TROP #### [address] Protein [Mass/Vol] 6.0 g/dL Low 6.4-8.9 [facility] Comment on above: Performed By: #### C K, LIPASE, CBC, BMP, BNP, HEPATIC, HS TROP #### [address] Sodium [Moles/Vol] 136 mmol/L Normal 136-145 [facility] Comment on above: Performed By: #### C K, LIPASE, CBC, BMP, BNP, HEPATIC, HS TROP #### [address] Urea nitrogen [Mass/Vol] 20 mg/dL Normal 7-25 [facility] Comment on above: Performed By: #### C K, LIPASE, CBC, BMP, BNP, HEPATIC, HS TROP #### [address] Albumin [Mass/Vol] 3.7 g/dL Normal 3.5-5.7 [facility] Comment on above: Performed By: #### C K, LIPASE, CBC, BMP, BNP, HEPATIC, HS TROP #### [address] Albumin/Globulin [Mass ratio] 1.7 {ratio} Normal [facility] Comment on above: Performed By: #### C K, LIPASE, CBC, BMP, BNP, HEPATIC, HS TROP #### [address] ALP [Catalytic activity/Vol] 58 U/L Normal 34-104 [facility] Comment on above: Performed By: #### C K, LIPASE, CBC, BMP, BNP, HEPATIC, HS TROP #### [address] ALT [Catalytic activity/Vol] 8 U/L Normal 7-52 [facility] Comment on above: Performed By: #### C K, LIPASE, CBC, BMP, BNP, HEPATIC, HS TROP #### [address] Anion gap [Moles/Vol] 8.6 mmol/L Normal 6.0-15.0 [facility] Comment on above: Performed By: #### C K, LIPASE, CBC, BMP, BNP, HEPATIC, HS TROP #### [address] AST [Catalytic activity/Vol] 7 U/L Low 13-39 [facility] Comment on above: Performed By: #### C K, LIPASE, CBC, BMP, BNP, HEPATIC, HS TROP #### [address] Bilirubin [Mass/Vol] 0.4 mg/dL Normal 0.3-1.0 [facility] Comment on above: Performed By: #### C K, LIPASE, CBC, BMP, BNP, HEPATIC, HS TROP #### [address] Calcium [Mass/Vol] 8.6 mg/dL Normal 8.6-10.3 [facility] Comment on above: Performed By: #### C K, LIPASE, CBC, BMP, BNP, HEPATIC, HS TROP #### [place] [address] [place] Chloride [Moles/Vol] 100 mmol/L Normal 98-107 [facility] Comment on above: Performed By: #### C K, LIPASE, CBC, BMP, BNP, HEPATIC, HS TROP #### [address] CO2 [Moles/Vol] 29.2 mmol/L Normal 21.0-31.0 [facility] Comment on above: Performed By: #### C K, LIPASE, CBC, BMP, BNP, HEPATIC, HS TROP #### [address] Creatinine [Mass/Vol] 0.63 mg/dL Low 0.70-1.30 [facility] Comment on above: Performed By: #### C K, LIPASE, CBC, BMP, BNP, HEPATIC, HS TROP #### [address] Creatinine Clr Calc Pharmacy 95.88 Normal [facility] Comment on above: Performed By: #### C K, LIPASE, CBC, BMP, BNP, HEPATIC, HS TROP #### [address] GFR/1.73 sq M.predicted MDRD (S/P/Bld) [Vol rate/Area] mL/min/{1.73_m2} Normal [facility] Comment on above: Performed By: #### C K, LIPASE, CBC, BMP, BNP, HEPATIC, HS TROP #### [address] Globulin (S) [Mass/Vol] 2.2 g/dL Normal [facility] Comment on above: Performed By: #### C K, LIPASE, CBC, BMP, BNP, HEPATIC, HS TROP #### [address] Glucose [Mass/Vol] 136 mg/dL High 70-100 [facility] Comment on above: Result Comment: [place] Glucose Reference Range is dependent on time and content of last meal. Glucose of more than 200 mg/dL in a nonstressed, ambulatory subject supports the diagnosis of Diabetes Mellitus. ADA recommended reference range Performed By: #### C K, LIPASE, CBC, BMP, BNP, HEPATIC, HS TROP #### [address] Potassium [Moles/Vol] 3.8 mmol/L Normal 3.5-5.1 [facility] Comment on above: Performed By: #### C K, LIPASE, CBC, BMP, BNP, HEPATIC, HS TROP #### [address] Protein [Mass/Vol] 5.9 g/dL Low 6.4-8.9 [facility] Comment on above: Performed By: #### C K, LIPASE, CBC, BMP, BNP, HEPATIC, HS TROP #### [address] Sodium [Moles/Vol] 134 mmol/L Low 136-145 [facility] Comment on above: Performed By: #### C K, LIPASE, CBC, BMP, BNP, HEPATIC, HS TROP #### [address] Urea nitrogen [Mass/Vol] 22 mg/dL Normal 7-25 [facility] Comment on above: Performed By: #### C K, LIPASE, CBC, BMP, BNP, HEPATIC, HS TROP #### [address] ESR (Bld) [Velocity]on 10-08 [facility] Erythrocyte Sedimentation Ra james 10-08-2024 ESR (Bld) [Velocity] 14 mm/h Normal 0-19 [facility] Comment on above: Result Comment: PERF ORMED BY: [place] [address] PATHOLOGIST [employer] VENUS NORIEGA M.D. Performed By: #### C K, LIPASE, CBC, BMP, BNP, HEPATIC, HS TROP #### [address] Erythrocyte sedimentation ra te by Photometric methodOrdered By: Gerard Platt on 10-08-2024 ESR Photometric method (Bld) [Velocity] Erythrocyte sedimentation rate by Photometric method 0-19 [facility] [place] urethrocystogram retroon 10-08-2024 [place] urethrocystogram retro [facility] Main [place] [address] [place] [address] Fluoroscopy Report Signed Patient: Vashti Massey MR#: [id number] : 1955 Acct:[id number] Age/Sex: 69 / M ADM Date: 10/06/24 Loc: Room: [address] [place] [address] Type: ADM IN Attending Dr: Debbie Lundberg MD Copies to: MD Dionte Lagos MD Ordering Provider: Dionte Pereira MD Date of Service: 10/08/24 [place] urethrocystogram retro: RETROGRADE Intraoperative study. Reason for exam: Cystoscopy, bilateral retrograde Findings: 8 images were obtained intraoperatively. Contrast is seen within both collecting systems. Cumulative Air Kerma in mGy: 10 mGy [place] urethrocystogram retro Impression: Intraoperative study. Impression dictated by: Dwayne Coello Jr., D.OMann10/08/2024 3:34 PM Dictation Location: [place] [address] Transcribed By: [facility] 10/08/24 1534 Dictated By: Dwayne Coello Jr, DO 10/08/24 153 Signed By: 10/08/24 1534 Normal [facility] Ferritinon 10-08-2024 Ferritin [Mass/Vol] 35.0 ng/mL Normal 23.9-336.2 [facility] Comment on above: Performed By: #### C K, LIPASE, CBC, BMP, BNP, HEPATIC, HS TROP #### [address] Ferritin [Mass/volume] in Se rum or PlasmaOrdered By: Gerard Platt on 10-08-2024 Ferritin [Mass/Vol] Ferritin [Mass/volum e] in Serum or Plasma 23.9-336.2 [facility] Folate [Mass/volume] in Seru m or PlasmaOrdered By: Gerard Platt on 10-08-2024 Folate [Mass/Vol] Folate [Mass/volume] in Serum or Plasma >5.9 [facility] Comment on above: Folate reference ran ge: >5.9 ng/mlThe WHO technical consultation on folate and vitamin [id number] has determined that folate concentrations lessthan 4 ng/ml are considered deficient. Glucose Poct Glucometerson 1 12-09-2023 Glucose [Mass/Vol] 238 mg/dL Normal [facility] Comment on above: Result Comment: [place] om Glucose Reference Range is dependent on time and content of last meal. Glucose of more than 200 mg/dL in a nonstressed, ambulatory subject supports the diagnosis of Diabetes Mellitus. PERFORMED BY: [place] [address] PATHOLOGIST [employer] VENUS NORIEGA M.D. Performed By: #### C K, LIPASE, CBC, BMP, BNP, HEPATIC, HS TROP #### [address] Commemt1 Glu2: Cleaned Meter Normal [facility] Comment on above: Result Comment: PERF ORMED BY: [place] [address] PATHOLOGIST [employer] VENUS NORIEGA M.D. Performed By: #### C K, LIPASE, CBC, BMP, BNP, HEPATIC, HS TROP #### [address] Glucose [Mass/Vol] 151 mg/dL Normal [facility] Comment on above: Result Comment: [place] om Glucose Reference Range is dependent on time and content of last meal. Glucose of more than 200 mg/dL in a nonstressed, ambulatory subject supports the diagnosis of Diabetes Mellitus. Performed By: #### C K, LIPASE, CBC, BMP, BNP, HEPATIC, HS TROP #### [address] Commemt1 Glu2: Cleaned Meter Normal [facility] Comment on above: Result Comment: PERF ORMED BY: [place] [address] PATHOLOGIST [employer] VENUS NORIEGA M.D. Performed By: #### C K, LIPASE, CBC, BMP, BNP, HEPATIC, HS TROP #### [address] Glucose [Mass/Vol] 138 mg/dL Normal [facility] Comment on above: Result Comment: [place] om Glucose Reference Range is dependent on time and content of last meal. Glucose of more than 200 mg/dL in a nonstressed, ambulatory subject supports the diagnosis of Diabetes Mellitus. Performed By: #### C K, LIPASE, CBC, BMP, BNP, HEPATIC, HS TROP #### [address] Glucose [Mass/Vol] 173 mg/dL Normal [facility] Comment on above: Result Comment: [place] om Glucose Reference Range is dependent on time and content of last meal. Glucose of more than 200 mg/dL in a nonstressed, ambulatory subject supports the diagnosis of Diabetes Mellitus. PERFORMED BY: [place] [address] PATHOLOGIST [employer] VENUS NORIEGA M.D. Performed By: #### C K, LIPASE, CBC, BMP, BNP, HEPATIC, HS TROP #### [address] Glucose [Mass/Vol] 139 mg/dL Normal [facility] Comment on above: Result Comment: [place] om Glucose Reference Range is dependent on time and content of last meal. Glucose of more than 200 mg/dL in a nonstressed, ambulatory subject supports the diagnosis of Diabetes Mellitus. PERFORMED BY: [place] [address] PATHOLOGIST [employer] VENUS NORIEGA M.D. Performed By: #### C K, LIPASE, CBC, BMP, BNP, HEPATIC, HS TROP #### [address] Iron [Mass/volume] in Serum or PlasmaOrdered By: Gerard Platt on 10-08-2024 Iron [Mass/Vol] Iron [Mass/volume] i n Serum or Plasma Low 50-212 [facility] Iron and TIBC Profileon 09-26 % Iron Saturation 11.3 % Low 20-50 [facility] Comment on above: Performed By: #### C K, LIPASE, CBC, BMP, BNP, HEPATIC, HS TROP #### [place] [address] [place] Iron [Mass/Vol] 34 ug/dL Low 50-212 [facility] Comment on above: Performed By: #### C K, LIPASE, CBC, BMP, BNP, HEPATIC, HS TROP #### [facility] [address] Total Iron Binding Capacity 302 ug/dL Normal 255-450 [facility] Comment on above: Performed By: #### C K, LIPASE, CBC, BMP, BNP, HEPATIC, HS TROP #### [facility] [address] Transferrin [Mass/Vol] 216 mg/dL Normal 203-362 [facility] Comment on above: Performed By: #### C K, LIPASE, CBC, BMP, BNP, HEPATIC, HS TROP #### [address] Magnesiumon 10-08-2024 Magnesium [Mass/Vol] 1.7 mg/dL Low 1.9-2.7 [facility] Comment on above: Result Comment: PERF ORMED BY: [place] [address] PATHOLOGIST [employer] VENUS NORIEGA M.D. Performed By: #### C K, LIPASE, CBC, BMP, BNP, HEPATIC, HS TROP #### [address] Magnesium [Mass/Vol] 1.7 mg/dL Low 1.9-2.7 [facility] Comment on above: Result Comment: PERF ORMED BY: [place] [address] PATHOLOGIST [employer] VENUS NORIEGA M.D. Performed By: #### C K, LIPASE, CBC, BMP, BNP, HEPATIC, HS TROP #### [address] Sedimentation rate, automate don 10-08-2024 ESR (Bld) [Velocity] 14 mm/h 0 - 19 [facility] Serum or plasma iron binding capacity measurement (mass/volume)Ordered By: Gerard Platt on 10-08-2024 Iron binding capacity [Mass/Vol] Iron binding capacity [Mass/volume] in Serum or Plasma 255-450 [facility] Serum or plasma iron saturat ion measurement (mass fraction)Ordered By: Gerard Platt on 10-08-2024 Iron saturation [Mass fraction] Iron saturation [Mass Fraction] in Serum or Plasma Low 20-50 [facility] Transferrin [Mass/volume] in Serum or PlasmaOrdered By: Gerard Platt on 10-08-2024 Transferrin [Mass/Vol] Transferrin [Mass/volume] in Serum or Plasma 203-362 [facility] Vit. B12/Folate Profileon Cobalamin (Vitamin B12) [Mass/Vol] 490 pg/mL Normal 180-914 [facility] Comment on above: Performed By: #### C K, LIPASE, CBC, BMP, BNP, HEPATIC, HS TROP #### [address] Folate 10.2 ng/mL Normal >5.9 [facility] Comment on above: Result Comment: [place] reference range: >5.9 ng/ml The WHO technical consultation on folate and vitamin b12 deficiencies has determined that folate concentrations less than 4 ng/ml are considered deficient. PERFORMED BY: [place] [address] PATHOLOGIST [employer] VENUS NORIEGA M.D. Performed By: #### C K, LIPASE, CBC, BMP, BNP, HEPATIC, HS TROP #### [address] Vitamin B12 ser/plasOrdered By: Gerard Platt on 10-08-2024 Cobalamin (Vitamin B12) [Mass/Vol] Vitamin B12 ser/plas 180-914 [facility] Basic Metabolic Panelon 09-26 Anion gap [Moles/Vol] 14.3 mmol/L Normal 6.0-15.0 [facility] Comment on above: Performed By: #### C K, LIPASE, CBC, BMP, BNP, HEPATIC, HS TROP #### [address] Calcium [Mass/Vol] 9.2 mg/dL Normal 8.6-10.3 [facility] Comment on above: Performed By: #### C K, LIPASE, CBC, BMP, BNP, HEPATIC, HS TROP #### [facility] [address] Chloride [Moles/Vol] 102 mmol/L Normal 98-107 [facility] Comment on above: Performed By: #### C K, LIPASE, CBC, BMP, BNP, HEPATIC, HS TROP #### [facility] [address] CO2 [Moles/Vol] 24.9 mmol/L Normal 21.0-31.0 [facility] Comment on above: Performed By: #### C K, LIPASE, CBC, BMP, BNP, HEPATIC, HS TROP #### [facility] [address] Creatinine [Mass/Vol] 0.66 mg/dL Low 0.70-1.30 [facility] Comment on above: Performed By: #### C K, LIPASE, CBC, BMP, BNP, HEPATIC, HS TROP #### [facility] [address] Creatinine Clr Calc Pharmacy 94.64 Normal [facility] Comment on above: Performed By: #### C K, LIPASE, CBC, BMP, BNP, HEPATIC, HS TROP #### [address] GFR/1.73 sq M.predicted MDRD (S/P/Bld) [Vol rate/Area] mL/min/{1.73_m2} Normal [facility] Comment on above: Performed By: #### C K, LIPASE, CBC, BMP, BNP, HEPATIC, HS TROP #### [address] Glucose [Mass/Vol] 177 mg/dL High 70-100 [facility] Comment on above: Result Comment: [place] Glucose Reference Range is dependent on time and content of last meal. Glucose of more than 200 mg/dL in a nonstressed, ambulatory subject supports the diagnosis of Diabetes Mellitus. ADA recommended reference range Performed By: #### C K, LIPASE, CBC, BMP, BNP, HEPATIC, HS TROP #### [address] Potassium [Moles/Vol] 4.2 mmol/L Normal 3.5-5.1 [facility] Comment on above: Performed By: #### C K, LIPASE, CBC, BMP, BNP, HEPATIC, HS TROP #### [address] Sodium [Moles/Vol] 137 mmol/L Normal 136-145 [facility] Comment on above: Performed By: #### C K, LIPASE, CBC, BMP, BNP, HEPATIC, HS TROP #### [address] Urea nitrogen [Mass/Vol] 33 mg/dL High 7-25 [facility] Comment on above: Performed By: #### C K, LIPASE, CBC, BMP, BNP, HEPATIC, HS TROP #### [address] Complete Blood Count Auto Di ffon 10-07-2024 Basophils (Bld) [#/Vol] 0.1 10*3/uL Normal 0.0-0.2 [facility] Comment on above: Result Comment: PERF ORMED BY: [place] [address] PATHOLOGIST [employer] VENUS NORIEGA M.D. Performed By: #### C K, LIPASE, CBC, BMP, BNP, HEPATIC, HS TROP #### [address] Basophils/100 WBC (Bld) 1.2 % Normal . [facility] Comment on above: Performed By: #### C K, LIPASE, CBC, BMP, BNP, HEPATIC, HS TROP #### [address] Eosinophils (Bld) [#/Vol] 0.1 10*3/uL Normal 0.0-0.45 [facility] Comment on above: Performed By: #### C K, LIPASE, CBC, BMP, BNP, HEPATIC, HS TROP #### [address] Eosinophils/100 WBC (Bld) 2.0 % Normal . [facility] Comment on above: Performed By: #### C K, LIPASE, CBC, BMP, BNP, HEPATIC, HS TROP #### [address] Erythrocyte distribution width (RBC) [Ratio] 17.6 % High 12.0-14.8 [facility] Comment on above: Performed By: #### C K, LIPASE, CBC, BMP, BNP, HEPATIC, HS TROP #### [address] Hematocrit (Bld) [Volume fraction] 32.0 % Low 38.8-50.0 [facility] Comment on above: Performed By: #### C K, LIPASE, CBC, BMP, BNP, HEPATIC, HS TROP #### [address] Hemoglobin (Bld) [Mass/Vol] 10.9 g/dL Low 13.0-17.0 [facility] Comment on above: Performed By: #### C K, LIPASE, CBC, BMP, BNP, HEPATIC, HS TROP #### [address] Lymphocytes (Bld) [#/Vol] 1.3 10*3/uL Normal 1.00-4.8 [facility] Comment on above: Performed By: #### C K, LIPASE, CBC, BMP, BNP, HEPATIC, HS TROP #### [address] Lymphocytes/100 WBC (Bld) 30.5 % Normal . [facility] Comment on above: Performed By: #### C K, LIPASE, CBC, BMP, BNP, HEPATIC, HS TROP #### [address] MCH (RBC) [Entitic mass] 28.2 pg Normal 27.5-35.2 [facility] Comment on above: Performed By: #### C K, LIPASE, CBC, BMP, BNP, HEPATIC, HS TROP #### [address] MCV (RBC) [Entitic vol] 82.7 fL Low 83.5-101 [facility] Comment on above: Performed By: #### C K, LIPASE, CBC, BMP, BNP, HEPATIC, HS TROP #### [address] Mean Corpuscular HGB Conc 34.2 g/dL Normal 32.5-35.6 [facility] Comment on above: Performed By: #### C K, LIPASE, CBC, BMP, BNP, HEPATIC, HS TROP #### [address] Monocytes (Bld) [#/Vol] 0.3 10*3/uL Normal 0.0-0.8 [facility] Comment on above: Performed By: #### C K, LIPASE, CBC, BMP, BNP, HEPATIC, HS TROP #### [address] Monocytes/100 WBC (Bld) 7.1 % Normal . [facility] Comment on above: Performed By: #### C K, LIPASE, CBC, BMP, BNP, HEPATIC, HS TROP #### [address] Neutrophils (Bld) [#/Vol] 2.5 10*3/uL Normal 1.8-7.7 [facility] Comment on above: Performed By: #### C K, LIPASE, CBC, BMP, BNP, HEPATIC, HS TROP #### [address] Neutrophils/100 WBC (Bld) 59.2 % Normal . [facility] Comment on above: Performed By: #### C K, LIPASE, CBC, BMP, BNP, HEPATIC, HS TROP #### [address] NRBC% 0.2 /100{WBC} Normal 0-0.5 [facility] Comment on above: Performed By: #### C K, LIPASE, CBC, BMP, BNP, HEPATIC, HS TROP #### [facility] [address] Platelet mean volume (Bld) [Entitic vol] 7.4 fL Normal 6.6-10.1 [facility] Comment on above: Performed By: #### C K, LIPASE, CBC, BMP, BNP, HEPATIC, HS TROP #### [facility] [address] Platelets (Bld) [#/Vol] 300 10*3/uL Normal 150-450 [facility] Comment on above: Performed By: #### C K, LIPASE, CBC, BMP, BNP, HEPATIC, HS TROP #### [facility] [address] RBC (Bld) [#/Vol] 3.87 10*6/uL Low 3.90-5.60 [facility] Comment on above: Performed By: #### C K, LIPASE, CBC, BMP, BNP, HEPATIC, HS TROP #### [address] WBC (Bld) [#/Vol] 4.2 10*3/uL Normal 4.1-10.5 [facility] Comment on above: Performed By: #### C K, LIPASE, CBC, BMP, BNP, HEPATIC, HS TROP #### [address] Glucose Poct Glucometerson 1 12-08-2023 Glucose [Mass/Vol] 220 mg/dL Normal [facility] Comment on above: Result Comment: [facility] Glucose Reference Range is dependent on time and content of last meal. Glucose of more than 200 mg/dL in a nonstressed, ambulatory subject supports the diagnosis of Diabetes Mellitus. PERFORMED BY: [place] [address] PATHOLOGIST [employer] VENUS NORIEGA M.D. Performed By: #### C K, LIPASE, CBC, BMP, BNP, HEPATIC, HS TROP #### [facility] [address] Glucose [Mass/Vol] 267 mg/dL Normal [facility] Comment on above: Result Comment: [place] om Glucose Reference Range is dependent on time and content of last meal. Glucose of more than 200 mg/dL in a nonstressed, ambulatory subject supports the diagnosis of Diabetes Mellitus. PERFORMED BY: [place] [address] PATHOLOGIST [employer] VENUS NORIEGA M.D. Performed By: #### C K, LIPASE, CBC, BMP, BNP, HEPATIC, HS TROP #### [address] Glucose [Mass/Vol] 216 mg/dL Normal [facility] Comment on above: Result Comment: [place] om Glucose Reference Range is dependent on time and content of last meal. Glucose of more than 200 mg/dL in a nonstressed, ambulatory subject supports the diagnosis of Diabetes Mellitus. PERFORMED BY: [place] [address] PATHOLOGIST [employer] VENUS NORIEGA M.D. Performed By: #### C K, LIPASE, CBC, BMP, BNP, HEPATIC, HS TROP #### [address] Glucose [Mass/Vol] 151 mg/dL Normal [facility] Comment on above: Result Comment: [place] om Glucose Reference Range is dependent on time and content of last meal. Glucose of more than 200 mg/dL in a nonstressed, ambulatory subject supports the diagnosis of Diabetes Mellitus. PERFORMED BY: [place] [address] PATHOLOGIST [employer] VENUS NORIEGA M.D. Performed By: #### C K, LIPASE, CBC, BMP, BNP, HEPATIC, HS TROP #### [address] Magnesiumon 10-07-2024 Magnesium [Mass/Vol] 1.9 mg/dL Normal 1.9-2.7 [facility] Comment on above: Result Comment: PERF ORMED BY: [place] [address] PATHOLOGIST [employer] VENUS NORIEGA M.D. Performed By: #### C K, LIPASE, CBC, BMP, BNP, HEPATIC, HS TROP #### [address] Appearance of UrineOrdered B y: Tori Morris on 10-06-2024 Appearance (U) Urine appearance Abnormal Clear [facility] B-Type Natriuretic Peptideon 10-06-2024 Natriuretic peptide B (Bld) [Mass/Vol] 17.0 pg/mL Normal 5-100 [facility] Comment on above: Result Comment: PERF ORMED BY: [place] [address] PATHOLOGIST [employer] VENUS NORIEGA M.D. Performed By: #### C K, LIPASE, CBC, BMP, BNP, HEPATIC, HS TROP #### [place] [address] [place] Bacteria [Presence] in Urine by AutomatedOrdered By: Tori Morris on 10-06-2024 Bacteria Auto Ql (U) Bacteria [Presence] in Urine by Automated None Seen [facility] Basic Metabolic Panelon 09-26 Anion gap [Moles/Vol] 14.7 mmol/L Normal 6.0-15.0 [facility] Comment on above: Performed By: #### C K, LIPASE, CBC, BMP, BNP, HEPATIC, HS TROP #### [facility] [address] [place] [address] [place] Calcium [Mass/Vol] 9.5 mg/dL Normal 8.6-10.3 [facility] Comment on above: Performed By: #### C K, LIPASE, CBC, BMP, BNP, HEPATIC, HS TROP #### [facility] [address] [place] [id number] [place] Chloride [Moles/Vol] 102 mmol/L Normal 98-107 [facility] Comment on above: Performed By: #### C K, LIPASE, CBC, BMP, BNP, HEPATIC, HS TROP #### [facility] [address] CO2 [Moles/Vol] 24.7 mmol/L Normal 21.0-31.0 [facility] Comment on above: Performed By: #### C K, LIPASE, CBC, BMP, BNP, HEPATIC, HS TROP #### [address] Creatinine [Mass/Vol] 0.68 mg/dL Low 0.70-1.30 [facility] Comment on above: Performed By: #### C K, LIPASE, CBC, BMP, BNP, HEPATIC, HS TROP #### [address] Creatinine Clr Calc Pharmacy 97.56 Normal [facility] Comment on above: Performed By: #### C K, LIPASE, CBC, BMP, BNP, HEPATIC, HS TROP #### [address] GFR/1.73 sq M.predicted MDRD (S/P/Bld) [Vol rate/Area] mL/min/{1.73_m2} Normal [facility] Comment on above: Performed By: #### C K, LIPASE, CBC, BMP, BNP, HEPATIC, HS TROP #### [address] Glucose [Mass/Vol] 197 mg/dL High 70-100 [facility] Comment on above: Result Comment: [place] Glucose Reference Range is dependent on time and content of last meal. Glucose of more than 200 mg/dL in a nonstressed, ambulatory subject supports the diagnosis of Diabetes Mellitus. ADA recommended reference range Performed By: #### C K, LIPASE, CBC, BMP, BNP, HEPATIC, HS TROP #### [address] Potassium [Moles/Vol] 4.4 mmol/L Normal 3.5-5.1 [facility] Comment on above: Performed By: #### C K, LIPASE, CBC, BMP, BNP, HEPATIC, HS TROP #### [facility] [address] Sodium [Moles/Vol] 137 mmol/L Normal 136-145 [facility] Comment on above: Performed By: #### C K, LIPASE, CBC, BMP, BNP, HEPATIC, HS TROP #### [address] Urea nitrogen [Mass/Vol] 34 mg/dL High 7-25 [facility] Comment on above: Performed By: #### C K, LIPASE, CBC, BMP, BNP, HEPATIC, HS TROP #### [address] Bilirubin Test strip Ql (U)O rdered By: Tori Morris on 10-06-2024 Bilirubin Ql (U) Bilirubin.total [Presence] in Urine by Test strip Negative [facility] Comment on above: Unable to obtain acc urate result due to color interference. Bilirubin.direct [Mass/volum e] in Serum or PlasmaOrdered By: Tori Morris on 10-06-2024 Bilirubin.direct [Mass/Vol] Bilirubin.direct [Mass/volume] in Serum or Plasma 0.03-0.18 [facility] BioFire Not Detectedon 10-06 BioFire Not Detected Not detected Normal Not Detecte [facility] Comment on above: Result Comment: This is a duplicate RP2.1 COVID (PCR) result to be used for statistical tracking purpose only. PERFORMED BY: [place] [address] PATHOLOGIST [employer] VENUS NORIEGA M.D. Performed By: #### C K, LIPASE, CBC, BMP, BNP, HEPATIC, HS TROP #### [address] Blood Cultureon 10-06-2024 Bacteria identified Cx Nom (Bld) NO GROWTH 5 DAYS PERFORMED BY: [address] [place] [address] PATHOLOGIST [employer] VENUS NORIEGA M.D. Normal [facility] Comment on above: Performed By: #### C K, LIPASE, CBC, BMP, BNP, HEPATIC, HS TROP #### [facility] [address] [place] [address] Bacteria identified Cx Nom (Bld) NO GROWTH 5 DAYS PERFORMED BY: [place] [address] PATHOLOGIST [employer] VENUS NORIEGA M.D. Normal [facility] Comment on above: Performed By: #### C K, LIPASE, CBC, BMP, BNP, HEPATIC, HS TROP #### [facility] [address] [place] [address] COVID-19 Detected/Not Detect edOrdered By: Tori Morris on 10-06-2024 SARS-CoV-2 (COVID-19) RNA KOSTA+non-probe Ql (Nph) Not detected Not Detecte [facility] Comment on above: This is a duplicate RP2.1 COVID (PCR) result to be used for statistical tracking purpose only. CT abdomen pelvis w conon CT abdomen pelvis w con [facility] Main [place] [address] [place] [address] CT Scan Report Signed Patient: Vashti Massey MR#: [id number] : 1955 Acct:[id number] Age/Sex: 69 / M ADM Date: 10/06/24 Loc: ER Room: Type: [facility] Attending Dr: Copies to: Tori Morris MD [...] in place. Mild bladder wall thickening. Prostatomegaly.] Peritoneum/Retroperiton eum:No free air free fluid or lymphadenopathy.[ Abd [...] excluded. Impression dictated by: Dwayne Coello Jr., XochitlOMann10/06/2024 8:10 PM Dictation Location: [facility]--18 Transcribed By: [facility] 10/06/242009 Dictated By: Dwayne Coello Jr, DO 10/06/242004 Signed By: 10/06/242009 Normal [facility] Color Auto (U)Ordered By: Leonard Morris on 10-06-2024 Color (U) Color of Urine by Auto Abnormal Yellow [facility] Complete Blood Count Auto Di ffon 10-06-2024 Basophils (Bld) [#/Vol] 0.1 10*3/uL Normal 0.0-0.2 [facility] Comment on above: Result Comment: PERF ORMED BY: [place] [address] PATHOLOGIST [employer] VENUS NORIEGA M.D. Performed By: #### C K, LIPASE, CBC, BMP, BNP, HEPATIC, HS TROP #### [facility] [address] [place] [id number] [place] Basophils/100 WBC (Bld) 1.1 % Normal . [facility] Comment on above: Performed By: #### C K, LIPASE, CBC, BMP, BNP, HEPATIC, HS TROP #### [facility] [address] [place] [address] [place] Eosinophils (Bld) [#/Vol] 0.1 10*3/uL Normal 0.0-0.45 [facility] Comment on above: Performed By: #### C K, LIPASE, CBC, BMP, BNP, HEPATIC, HS TROP #### [address] Eosinophils/100 WBC (Bld) 2.1 % Normal . [facility] Comment on above: Performed By: #### C K, LIPASE, CBC, BMP, BNP, HEPATIC, HS TROP #### [address] Erythrocyte distribution width (RBC) [Ratio] 17.7 % High 12.0-14.8 [facility] Comment on above: Performed By: #### C K, LIPASE, CBC, BMP, BNP, HEPATIC, HS TROP #### [address] Hematocrit (Bld) [Volume fraction] 33.5 % Low 38.8-50.0 [facility] Comment on above: Performed By: #### C K, LIPASE, CBC, BMP, BNP, HEPATIC, HS TROP #### [address] Hemoglobin (Bld) [Mass/Vol] 11.2 g/dL Low 13.0-17.0 [facility] Comment on above: Performed By: #### C K, LIPASE, CBC, BMP, BNP, HEPATIC, HS TROP #### [address] Lymphocytes (Bld) [#/Vol] 1.3 10*3/uL Normal 1.00-4.8 [facility] Comment on above: Performed By: #### C K, LIPASE, CBC, BMP, BNP, HEPATIC, HS TROP #### [address] Lymphocytes/100 WBC (Bld) 26.1 % Normal . [facility] Comment on above: Performed By: #### C K, LIPASE, CBC, BMP, BNP, HEPATIC, HS TROP #### [address] [address] [place] MCH (RBC) [Entitic mass] 27.7 pg Normal 27.5-35.2 [facility] Comment on above: Performed By: #### C K, LIPASE, CBC, BMP, BNP, HEPATIC, HS TROP #### [address] MCV (RBC) [Entitic vol] 82.5 fL Low 83.5-101 [facility] Comment on above: Performed By: #### C K, LIPASE, CBC, BMP, BNP, HEPATIC, HS TROP #### [address] Mean Corpuscular HGB Conc 33.5 g/dL Normal 32.5-35.6 [facility] Comment on above: Performed By: #### C K, LIPASE, CBC, BMP, BNP, HEPATIC, HS TROP #### [address] Monocytes (Bld) [#/Vol] 0.3 10*3/uL Normal 0.0-0.8 [facility] Comment on above: Performed By: #### C K, LIPASE, CBC, BMP, BNP, HEPATIC, HS TROP #### [address] Monocytes/100 WBC (Bld) 17.55 % Normal 0.00-20.00 [facility] Comment on above: Performed By: #### C K, LIPASE, CBC, BMP, BNP, HEPATIC, HS TROP #### [address] Monocytes/100 WBC (Bld) 6.5 % Normal . [facility] Comment on above: Performed By: #### C K, LIPASE, CBC, BMP, BNP, HEPATIC, HS TROP #### [address] Neutrophils (Bld) [#/Vol] 3.3 10*3/uL Normal 1.8-7.7 [facility] Comment on above: Performed By: #### C K, LIPASE, CBC, BMP, BNP, HEPATIC, HS TROP #### [address] Neutrophils/100 WBC (Bld) 64.2 % Normal . [facility] Comment on above: Performed By: #### C K, LIPASE, CBC, BMP, BNP, HEPATIC, HS TROP #### [address] NRBC% 0.1 /100{WBC} Normal 0-0.5 [facility] Comment on above: Performed By: #### C K, LIPASE, CBC, BMP, BNP, HEPATIC, HS TROP #### [facility] [address] Platelet mean volume (Bld) [Entitic vol] 7.3 fL Normal 6.6-10.1 [facility] Comment on above: Performed By: #### C K, LIPASE, CBC, BMP, BNP, HEPATIC, HS TROP #### [address] Platelets (Bld) [#/Vol] 324 10*3/uL Normal 150-450 [facility] Comment on above: Performed By: #### C K, LIPASE, CBC, BMP, BNP, HEPATIC, HS TROP #### [address] RBC (Bld) [#/Vol] 4.07 10*6/uL Normal 3.90-5.60 [facility] Comment on above: Performed By: #### C K, LIPASE, CBC, BMP, BNP, HEPATIC, HS TROP #### [address] WBC (Bld) [#/Vol] 5.2 10*3/uL Normal 4.1-10.5 [facility] Comment on above: Performed By: #### C K, LIPASE, CBC, BMP, BNP, HEPATIC, HS TROP #### [address] Creatine Kinaseon 10-06-2024 CK [Catalytic activity/Vol] 10 U/L Low 30-223 [facility] Comment on above: Performed By: #### C K, LIPASE, CBC, BMP, BNP, HEPATIC, HS TROP #### [facility] [address] [place] [address] [place] Creatine kinase [Enzymatic a ctivity/volume] in Serum or PlasmaOrdered By: Tori Morris on 10-06-2024 CK [Catalytic activity/Vol] Creatine kinase [Enzymatic activity/volume] in Serum or Plasma Low 30-223 [facility] Dipstick and Microscopicon 1 12-07-2023 Appearance (U) Turbid Critically abnormal Clear [facility] Comment on above: Order Comment: Name Collection Type:: Cyr Catheter Performed By: #### C K, LIPASE, CBC, BMP, BNP, HEPATIC, HS TROP #### [facility] [address] [place] [address] [place] Bacteria,Urine None Seen Normal None Seen [facility] Comment on above: Order Comment: Name Collection Type:: Cyr Catheter Performed By: #### C K, LIPASE, CBC, BMP, BNP, HEPATIC, HS TROP #### [address] Bilirubin,Urine Negative Normal Negative [facility] Comment on above: Order Comment: Name Collection Type:: Cyr Catheter Result Comment: Unab le to obtain accurate result due to color interference. Performed By: #### C K, LIPASE, CBC, BMP, BNP, HEPATIC, HS TROP #### [facility] [address] [place] [id number] [facility] Color (U) Red Critically abnormal Yellow [facility] Comment on above: Order Comment: Name Collection Type:: Cyr Catheter Performed By: #### C K, LIPASE, CBC, BMP, BNP, HEPATIC, HS TROP #### [facility] [address] [place] [address] [place] Glucose Ql (U) Normal Normal Normal [facility] Comment on above: Order Comment: Name Collection Type:: Cyr Catheter Result Comment: Unab le to obtain accurate result due to color interference. Performed By: #### C K, LIPASE, CBC, BMP, BNP, HEPATIC, HS TROP #### [facility] [address] [place] [address] [place] Hyaline Casts,Urine None Normal 0-8 [facility] Comment on above: Order Comment: Name Collection Type:: Cyr Catheter Performed By: #### C K, LIPASE, CBC, BMP, BNP, HEPATIC, HS TROP #### [address] Ketones Ql (U) Negative Normal Negative [facility] Comment on above: Order Comment: Name Collection Type:: Cyr Catheter Result Comment: Unab le to obtain accurate result due to color interference. Performed By: #### C K, LIPASE, CBC, BMP, BNP, HEPATIC, HS TROP #### [address] Leukocyte esterase Test strip Ql (U) 2+ High Negative [facility] Comment on above: Order Comment: Name Collection Type:: Cyr Catheter Result Comment: Unab le to obtain accurate result due to color interference. Performed By: #### C K, LIPASE, CBC, BMP, BNP, HEPATIC, HS TROP #### [address] Mucus,Urine 2+ Critically abnormal [facility] Comment on above: Order Comment: Name Collection Type:: Cyr Catheter Result Comment: PERF ORMED BY: [place] [address] PATHOLOGIST [employer] VENUS NORIEGA M.D. Performed By: #### C K, LIPASE, CBC, BMP, BNP, HEPATIC, HS TROP #### [address] Nitrite,Urine Negative Normal Negative [facility] Comment on above: Order Comment: Name Collection Type:: Cyr Catheter Result Comment: Unab le to obtain accurate result due to color interference. Unable to obtain accurate result due to color interference. Performed By: #### C K, LIPASE, CBC, BMP, BNP, HEPATIC, HS TROP #### [address] Occult Blood,Urine 3+ High Negative [facility] Comment on above: Order Comment: Name Collection Type:: Cyr Catheter Result Comment: Unab le to obtain accurate result due to color interference. Performed By: #### C K, LIPASE, CBC, BMP, BNP, HEPATIC, HS TROP #### [address] pH (U) 7.0 [pH] Normal 5.0-9.0 [facility] Comment on above: Order Comment: Name Collection Type:: Cyr Catheter Result Comment: Unab le to obtain accurate result due to color interference. Performed By: #### C K, LIPASE, CBC, BMP, BNP, HEPATIC, HS TROP #### [address] Protein (U) [Mass/Vol] 200 mg/dL High Negative [facility] Comment on above: Order Comment: Name Collection Type:: Cyr Catheter Result Comment: Unab le to obtain accurate result due to color interference. Performed By: #### C K, LIPASE, CBC, BMP, BNP, HEPATIC, HS TROP #### [address] RBC,Urine Innumerable High 0-4 [facility] Comment on above: Order Comment: Name Collection Type:: Cyr Catheter Performed By: #### C K, LIPASE, CBC, BMP, BNP, HEPATIC, HS TROP #### [address] Specificy [place],Urine 1.005 Normal 1.001-1.03 0 [facility] Comment on above: Order Comment: Name Collection Type:: Cyr Catheter Performed By: #### C K, LIPASE, CBC, BMP, BNP, HEPATIC, HS TROP #### [address] Urobilinogen,Urine Normal Normal Normal [facility] Comment on above: Order Comment: Name Collection Type:: Cyr Catheter Result Comment: Unab le to obtain accurate result due to color interference. Performed By: #### C K, LIPASE, CBC, BMP, BNP, HEPATIC, HS TROP #### [address] WBC CLUMP, Urine Many High None Seen [facility] Comment on above: Order Comment: Name Collection Type:: Cyr Catheter Performed By: #### C K, LIPASE, CBC, BMP, BNP, HEPATIC, HS TROP #### [facility] [address] WBC,Urine Innumerable High 0-4 [facility] Comment on above: Order Comment: Name Collection Type:: Cyr Catheter Performed By: #### C K, LIPASE, CBC, BMP, BNP, HEPATIC, HS TROP #### [facility] [address] ECG 12 lead ECGon 10-06-2024 ECG 12 lead ECG [facility] Main [place] [address] [place] [address] Electrocardiograph Report Signed Patient: Vashti Massey MR#: [id number] : 1955 Acct:[id number] Age/Sex: 69 / M ADM Date: 10/06/24 [...] sinus rhythm Confirmed by Tori Morris MD ([id number]) on 10/06/2024 5:32:21 PM Referred By: Electronically Signed By: Tori Morris MD Transcribed By: MUS Signed By Tori Morris MD 09/26 11/19 4645 Normal [facility] Epithelial cells.squamous [# /area] in Urine sediment by Automated countOrdered By: Tori Morris on 10-06-2024 Epithelial cells.squamous Auto (Urine sed) [#/Area] Epithelial cells.squamous [#/area] in Urine sediment by Automated count [facility] Erythrocytes [#/area] in Uri ne sediment by Automated countOrdered By: Tori Morris on 10-06-2024 RBC Auto (Urine sed) [#/Area] Erythrocytes [#/area] in Urine sediment by Automated count High 0-4 [facility] Glucose Poct Glucometerson 1 12-07-2023 Glucose [Mass/Vol] 174 mg/dL Normal [facility] Comment on above: Result Comment: [facility] Glucose Reference Range is dependent on time and content of last meal. Glucose of more than 200 mg/dL in a nonstressed, ambulatory subject supports the diagnosis of Diabetes Mellitus. PERFORMED BY: [place] [address] PATHOLOGIST [employer] VENUS NORIEGA M.D. Performed By: #### C K, LIPASE, CBC, BMP, BNP, HEPATIC, HS TROP #### [facility] [address] [place] [address] [place] Glucose [Mass/volume] in Uri ne by Test stripOrdered By: Tori Morris on 10-06-2024 Glucose Test strip (U) [Mass/Vol] Glucose [Mass/volume] in Urine by Test strip Normal [facility] Comment on above: Unable to obtain acc urate result due to color interference. Hemoglobin Test strip Ql (U) Ordered By: Tori Morris on 10-06-2024 Hemoglobin Ql (U) Hemoglobin [Presence ] in Urine by Test strip High Negative [facility] Comment on above: Unable to obtain acc urate result due to color interference. Hepatic Panelon 10-06-2024 Albumin [Mass/Vol] 4.0 g/dL Normal 3.5-5.7 [facility] Comment on above: Performed By: #### C K, LIPASE, CBC, BMP, BNP, HEPATIC, HS TROP #### [facility] [address] [place] [id number] [place] Albumin/Globulin [Mass ratio] 1.5 {ratio} Normal [facility] Comment on above: Performed By: #### C K, LIPASE, CBC, BMP, BNP, HEPATIC, HS TROP #### [facility] [address] [place] [address] [place] ALP [Catalytic activity/Vol] 67 U/L Normal 34-104 [facility] Comment on above: Performed By: #### C K, LIPASE, CBC, BMP, BNP, HEPATIC, HS TROP #### [address] ALT [Catalytic activity/Vol] 9 U/L Normal 7-52 [facility] Comment on above: Performed By: #### C K, LIPASE, CBC, BMP, BNP, HEPATIC, HS TROP #### [address] AST [Catalytic activity/Vol] 9 U/L Low 13-39 [facility] Comment on above: Performed By: #### C K, LIPASE, CBC, BMP, BNP, HEPATIC, HS TROP #### [address] Bilirubin [Mass/Vol] 0.6 mg/dL Normal 0.3-1.0 [facility] Comment on above: Performed By: #### C K, LIPASE, CBC, BMP, BNP, HEPATIC, HS TROP #### [address] Bilirubin,Indirect 0.5 mg/dL Normal [facility] Comment on above: Performed By: #### C K, LIPASE, CBC, BMP, BNP, HEPATIC, HS TROP #### [address] Bilirubin.indirect [Mass/Vol] 0.10 mg/dL Normal 0.03-0.18 [facility] Comment on above: Performed By: #### C K, LIPASE, CBC, BMP, BNP, HEPATIC, HS TROP #### [address] Globulin (S) [Mass/Vol] 2.7 g/dL Normal [facility] Comment on above: Performed By: #### C K, LIPASE, CBC, BMP, BNP, HEPATIC, HS TROP #### [address] Protein [Mass/Vol] 6.7 g/dL Normal 6.4-8.9 [facility] Comment on above: Performed By: #### C K, LIPASE, CBC, BMP, BNP, HEPATIC, HS TROP #### [address] [place] [address] [facility] Hyaline casts [#/area] in Ur ine sediment by Automated countOrdered By: Tori Morris on 10-06-2024 Hyaline casts Auto (Urine sed) [#/Area] Hyaline casts [#/area] in Urine sediment by Automated count 0-8 [facility] INR in Platelet poor plasma by Coagulation assayOrdered By: Tori Morris on 10-06-2024 INR Coag (PPP) [Relative time] INR in Platelet poor plasma by Coagulation assay [facility] Comment on above: INR Therapeutic Rang e A) Pre- and Peroperative OAT started two weeks before surgery. NOT HIP SURGERY: 1.5 - 2.5 HIP SURGERY: 2 - 3B) Primary and secondary prevention of venous THROMBOSIS: 2 - 3C) Active venous thrombosis, pulmonary embolismand prevention of recurrent venous thrombosis: 2 - 3D) Prevention of arterial thromboembolismincluding patients with mechanical heart valves: 3 - 4.5 Ketones Test strip Ql (U)Ord ered By: Tori Morris on 10-06-2024 Ketones Ql (U) Ketones [Presence] i n Urine by Test strip Negative [facility] Comment on above: Unable to obtain acc urate result due to color interference. Laboratory - Microbiology an d Antimicrobial susceptibilityOrdered By: Tori Morris on 10-06-2024 Bacteria identified Cx Nom (Bld) NO GROWTH 5 DAYS [facility] Bacteria identified Cx Nom (Bld) NO GROWTH 5 DAYS [facility] Lactate [Moles/volume] in Se rum or PlasmaOrdered By: Tori Morris on 10-06-2024 Lactate [Moles/Vol] Lactate [Moles/volum e] in Serum or Plasma 0.5-2.2 [facility] Lactic Acidon 10-06-2024 Lactate [Moles/Vol] 1.2 mmol/L Normal 0.5-2.2 [facility] Comment on above: Result Comment: PERF ORMED BY: [place] [id number] PATHOLOGIST [employer] VENUS NORIEGA M.D. Performed By: #### C K, LIPASE, CBC, BMP, BNP, HEPATIC, HS TROP #### [facility] [address] [place] [address] Leukocyte clumps [Presence] in Urine by AutomatedOrdered By: Tori Morris on 10-06-2024 Leukocyte clumps Auto Ql (U) Leukocyte clumps [Presence] in Urine by Automated High None Seen [facility] Leukocyte esterase [Presence ] in Urine by Test stripOrdered By: Tori Morris on 10-06-2024 Leukocyte esterase Test strip Ql (U) Leukocyte esterase [Presence] in Urine by Test strip High Negative [facility] Comment on above: Unable to obtain acc urate result due to color interference. Leukocytes [#/area] in Urine sediment by Automated countOrdered By: Tori Morris on 10-06-2024 WBC Auto (Urine sed) [#/Area] Leukocytes [#/area] in Urine sediment by Automated count High 0-4 [facility] Lipaseon 10-06-2024 Lipase [Catalytic activity/Vol] 12.0 U/L Normal 11.0-82.0 [facility] Comment on above: Result Comment: PERF ORMED BY: [place] [address] PATHOLOGIST [employer] VENUS NORIEGA M.D. Performed By: #### C K, LIPASE, CBC, BMP, BNP, HEPATIC, HS TROP #### [facility] [address] [place] [address] Lipase [Enzymatic activity/v olume] in Serum or PlasmaOrdered By: Tori Morris on 10-06-2024 Lipase [Catalytic activity/Vol] Lipase [Enzymatic activity/volume] in Serum or Plasma 11.0-82.0 [facility] Monocyte distribution width [Entitic volume] in Blood by AutomatedOrdered By: Tori Morris on 10-06-2024 Monocyte distribution width Auto (Bld) [Entitic vol] Monocyte distribution width [Entitic volume] in Blood by Automated 0.00-20.00 [facility] Mucus [Presence] in Urine by AutomatedOrdered By: Tori Morris on 10-06-2024 Mucus Auto Ql (U) Mucus [Presence] in Urine by Automated Abnormal [facility] Natriuretic peptide B [Mass/ Vol]Ordered By: Tori Morris on 10-06-2024 Natriuretic peptide B (Bld) [Mass/Vol] BNP ser/plas 5-100 [facility] Nitrite Test strip Ql (U)Ord ered By: Tori Morris on 10-06-2024 Nitrite Ql (U) Nitrite [Presence] i n Urine by Test strip Negative [facility] Comment on above: Unable to obtain acc urate result due to color interference. Unable to obtain accurate result due to color interference. Protein Test strip (U) [Mass /Vol]Ordered By: Tori Morris on 10-06-2024 Protein (U) [Mass/Vol] Protein [Mass/vol ume] in Urine by Test strip High Negative [facility] Comment on above: Unable to obtain acc urate result due to color interference. Prothrombin Time INRon 10-06 INR Coag (PPP) [Relative time] 1.2 {INR} Normal [facility] Comment on above: Result Comment: [...] heart valves: 3 - 4.5 PERFORMED BY: [place] [address] PATHOLOGIST [employer] VENUS NORIEGA M.D. Performed By: #### C K, LIPASE, CBC, BMP, BNP, HEPATIC, HS TROP #### [place] [id number] [facility] PT Coag (PPP) [Time] 13.5 s High 9.0-12.9 [facility] Comment on above: Result Comment: A he matocrit value greater than 55% may lead to inaccurate results in coagulation testing. Patients having hematocrit values >55% require a special collection tube for coagulation studies. Please contact the laboratory at [phone] for redraw instructions. Performed By: #### C K, LIPASE, CBC, BMP, BNP, HEPATIC, HS TROP #### [facility] [address] [place] [id number] [facility] Prothrombin time (PT)Ordered By: Tori Morris on 10-06-2024 PT Coag (PPP) [Time] Prothrombin time (PT) High 9.0- 12.9 [facility] Comment on above: A hematocrit value g reater than 55% may lead to inaccurate results in coagulation testing. Patients having hematocrit values >55% require a special collection tube for coagulation studies. Please contact the laboratory at [phone] for redraw instructions. Respiratory (Upper) Panel, P CRon 10-06-2024 Respiratory [...] COVID-19 Detected/Not Detected Not detected Blank Space -------- FLUA TEST INCLUDES Influenza A tests for the following clinically FLUA TEST INCLUDES significant subtypes: FLUA TEST INCLUDES - Influenza A FLUA TEST INCLUDES - Influenza A H1 FLUA TEST INCLUDES - Influenza A H1 2009 FLUA TEST INCLUDES - Influenza A H3 Blank Space -------- PERFORMED BY: [facility] [address] [place] [address] PATHOLOGIST [employer]ENT VENUS NORIEGA M.D. Normal [facility] Comment on above: Performed By: #### C K, LIPASE, CBC, BMP, BNP, HEPATIC, HS TROP #### [facility] [address] Respiratory pathogens DNA an d RNA panel - Nasopharynx by KOSTA with non-probe detectionOrdered By: Tori Morris on 10-06-2024 Respiratory pathogens DNA and RNA panel KOSTA+non-probe (Nph) Respiratory pathogens DNA and RNA panel - Nasopharynx by KOSTA with non-probe detection [facility] Serum or plasma non-glucuron idated bilirubin measurement (mass/volume)Ordered By: Tori Morris on 10-06-2024 Bilirubin.indirect [Mass/Vol] Serum or plasma non-glucuronidated bilirubin measurement (mass/volume) [facility] Specific gravity Test strip (U) [Rel density]Ordered By: Tori Morris on 10-06-2024 Specific gravity (U) [Rel density] Specific gravity of Urine by Test strip 1.001-1.03 0 [facility] Troponin I High Sensitivityo n 10-06-2024 Troponin I High Sensitivity 4.1 pg/mL Normal 0.0-20.0 [facility] Comment on above: Result Comment: PERF ORMED BY: [place] [address] PATHOLOGIST [employer] VENUS NORIEGA M.D. Performed By: #### H S TROP #### [facility] [address] [place] [address] Troponin I High Sensitivity 4.1 pg/mL Normal 0.0-20.0 [facility] Comment on above: Result Comment: PERF ORMED BY: [place] [address] PATHOLOGIST [employer] VENUS NORIEGA M.D. Performed By: #### C K, LIPASE, CBC, BMP, BNP, HEPATIC, HS TROP #### [facility] [address] [place] [address] Troponin I.cardiac [Mass/vol ume] in Serum or Plasma by Detection limit <= 0.01 ng/Ordered By: Tori Morris on 10-06-2024 Troponin I.cardiac DL <= 0.01 ng/mL [Mass/Vol] Troponin I.cardiac [Mass/volume] in Serum or Plasma by Detection limit <= 0.01 ng/ 0.0-20.0 [facility] Urine Cultureon 10-06-2024 Bacteria identified Cx Nom (U) ESBL results called at 0907 on 10/09/24 ORGANISM: Klebsiella pneumoniae (ESBL) (O:KLEPNEESBL) [place] Count >100,000 ORGANISM: Providencia stuartii (O:PROSTU) [place] Count 75,000 Aerobic CAROLIN Charge (NMIC56) -- SUSCEPTIBILITY - ORGANISM: O:KLEPNEESBL ANTIBIOTIC INTERPRETATION CAROLIN Amikacin S <16 Amoxacillin/K Clavulanate S <8 Ampicillin/Sulbactam I 1616/8 Aztreonam ESBL >16 Cefazolin R* >16 Cefepime R* >16 Ceftazidime ESBL >16 Ceftazidime/Avibactam S <4 Ceftolozane/Tazobactam S <2 Ceftriaxone ESBL >32 Cefuroxime R* >16 Ciprofloxacin R 1 Ertapenem S <0.5 Gentamicin S <2 Levofloxacin R 2 Meropenem S <1 Meropenem/Vaborbactam S <2 Nitrofurantoin R >64 Piperacillin/Tazobactam S <8 Tetracycline S <4 Tigecycline S <2 Tobramycin S <2 Trimethoprim/Sulfametho xazole S 09/14 Aerobic CAROLIN Charge (NMIC56) -- SUSCEPTIBILITY - ORGANISM: O:PROSTU ANTIBIOTIC INTERPRETATION CAROLIN Amikacin S <16 Ampicillin/Sulbactam IB 88/4 Aztreonam IB <4 Cefepime S <2 Ceftazidime IB 8 Ceftazidime/Avibactam S <4 Ceftolozane/Tazobactam I 4 Ceftriaxone I 2 Cefuroxime IB 8 Ciprofloxacin R >2 Ertapenem S <0.5 Gentamicin R* <2 Levofloxacin R >4 Meropenem S <1 Meropenem/Vaborbactam S <2 Piperacillin/Tazobactam IB <8 Tobramycin R* <2 Trimethoprim/Sulfametho xazole S <0.5 S = SUSCEPTIBLE I = [...] RESISTANT TO ALL B-LACTAM DRUGS. PERFORMED BY: [place] [address] PATHOLOGIST [employer]ENT VENUS NORIEGA M.D. Normal [facility] Comment on above: Performed By: #### C K, LIPASE, CBC, BMP, BNP, HEPATIC, HS TROP #### [place] [address] [place] Urine cultureOrdered By: [place] Morris on 10-06-2024 Bacteria identified Cx Nom (U) Abnormal [facility] Bacteria identified Cx Nom (U) Abnormal [facility] Urobilinogen Test strip (U) [Mass/Vol]Ordered By: Tori Morris on 10-06-2024 Urobilinogen (U) [Mass/Vol] Urobilinogen [Mass/volume] in Urine by Test strip Normal [facility] Comment on above: Unable to obtain acc urate result due to color interference. XR chest 2V*on 10-06-2024 XR chest 2V* [facility] Main [place] [address] [place], [place] [id number] XRay Report Signed Patient: Vashti Massey MR#: [id number] : 1955 Acct:[id number] Age/Sex: 69 / M ADM Date: 10/06/24 Loc: ER Room: Type: [facility] ER Attending Dr: Copies to: Tori Morris MD Ordering Provider: Tori Morris MD Date of Service: 10/06/24 XR/XR chest 2V*: Chest Pain Chest 2 views CLINICAL HISTORY: Dizziness bladder catheter low blood pressure COMPARISON: None FINDINGS: Heart normal in size. No consolidation pneumothorax pleural effusion or free air. XR/XR chest 2V* IMPRESSION: NO ACUTE CARDIOPULMONARY ABNORMALITY. Impression dictated by: Dwayne Coello Jr., Heavenly10/06/2024 8:05 PM Dictation Location: [facility]-18 Transcribed By: [facility] 10/06/242004 Dictated By: Dwayne Coello Jr, DO 10/06/242004 Signed By: 10/06/242004 Normal [facility] pH Test strip (U)Ordered By: Tori Morris on 10-06-2024 pH (U) pH of Urine by Test strip 5.0-9.0 [facility] Basic metabolic 2000 panelon 10-05-2024 Anion gap [Moles/Vol] 14 mmol/L 10 - 2 0 mmol/L [facility] Calcium [Mass/Vol] 9.5 mg/dL 8.6 - 10. 3 mg/dL [facility] Chloride [Moles/Vol] 101 mmol/L 98 - 10 7 mmol/L [facility] CO2 [Moles/Vol] 27 mmol/L 21 - 32 mmol/L [facility] Creatinine [Mass/Vol] 0.6 mg/dL 0.50 - 1.30 mg/dL [facility] eGFR - PINF [facility] Comment on above: Calculations of bartolome mated GFR are performed using the 2020 CKD-EPI Study Refit equation without the race variable for the IDMS-Traceable creatinine methods. https://jasn.asnjournals.org/content//ASN.47353 22218 Glucose [Mass/Vol] 157 mg/dL High 74 - 99 mg/dL [facility] Interpretation and review of laboratory results Abnormal [facility] Potassium [Moles/Vol] 4.1 mmol/L 3.5 - 5.3 mmol/L [facility] Sodium [Moles/Vol] 138 mmol/L 136 - 145 mmol/L [facility] Urea nitrogen [Mass/Vol] 22 mg/dL 6 - 23 mg/dL [facility] Anion gap [Moles/Vol] 14 mmol/L Normal 10-20 [facility] Comment on above: Performed By: #### 1 9123-9 #### OLESYA CAIN ([id number]) [facility] [address] [place] [address] Calcium [Mass/Vol] 9.5 mg/dL Normal 8.6-10.3 [facility] Comment on above: Performed By: #### 1 9123-9 #### OLESYA CAIN ([id number]) [facility] ([facility] [address] [place] [address] Chloride [Moles/Vol] 101 mmol/L Normal 98-[address] [facility] Comment on above: Performed By: #### 1 9123-9 #### OLESYA CAIN ([id number]) [facility] ([facility] [address] [place] [address] CO2 [Moles/Vol] 27 mmol/L Normal 21-32 [facility] Comment on above: Performed By: #### 1 9123-9 #### OLESYA CAIN ([id number]) [facility] ([facility] [address] [place] [address] Creatinine [Mass/Vol] 0.60 mg/dL Normal 0.50-1.30 [facility] Comment on above: Performed By: #### 1 9123-9 #### OLESYA CAIN ([id number]) [facility] ([facility] [address] [place] [address] GFR/1.73 sq M.predicted MDRD (S/P/Bld) [Vol rate/Area] mL/min/{1.73_m2} Normal >60 [facility] Comment on above: Result Comment: Calc ulations of estimated GFR are performed using the 2020 CKD-EPI Study Refit equation without the race variable for the IDMS-Traceable creatinine methods. https://jasn.asnjournals.org/content//ASN.14469 96310 Performed By: #### 1 9123-9 #### OLESYA CAIN ([id number]) [facility] ([facility] [address] [place] [address] Glucose [Mass/Vol] 157 mg/dL High 74-99 [facility] Comment on above: Performed By: #### 1 9123-9 #### OLESYA CAIN ([id number]) [facility] ([facility] [address] [place] [address] Potassium [Moles/Vol] 4.1 mmol/L Normal 3.5-5.3 [facility] Comment on above: Performed By: #### 1 9123-9 #### OLESYA CAIN ([id number]) [facility] ([facility] [address] [place] [address] Sodium [Moles/Vol] 138 mmol/L Normal 136-145 [facility] Comment on above: Performed By: #### 1 9123-9 #### OLESYA CAIN ([id number]) [facility] ([facility] [address] [place] [address] Urea nitrogen [Mass/Vol] 22 mg/dL Normal 6-23 [facility] Comment on above: Performed By: #### 1 9123-9 #### OLESYA CAIN ([id number]) [facility] ([facility] [address] [place] [address] CBC panel Auto (Bld)on 10-05 Erythrocyte distribution width (RBC) [Ratio] 16.2 % High 11.5 - 14.5 % [facility] Hematocrit (Bld) [Volume fraction] 33.9 % Low 41.0 - 52.0 % [facility] Hemoglobin (Bld) [Mass/Vol] 11 g/dL Low 13.5 - 17.5 g/dL [facility] Interpretation and review of laboratory results Abnormal [facility] MCH (RBC) [Entitic mass] 27.4 pg 26.0 - 34.0 pg [facility] MCHC (RBC) [Mass/Vol] 32.4 g/dL 32.0 - 36.0 g/dL [facility] MCV (RBC) [Entitic vol] 84 fL 80 - 100 fL [facility] Nucleated RBC/100 WBC (Bld) [Ratio] 0 % [facility] Platelets (Bld) [#/Vol] 264 10*3/uL [facility] RBC (Bld) [#/Vol] 4.02 10*6/uL Low [facility] WBC (Bld) [#/Vol] 6.6 10*3/uL [facility] Erythrocyte distribution width (RBC) [Ratio] 16.2 % High 11.5-14.5 [facility] Comment on above: Performed By: #### 1 9123-9 #### OLESYA CAIN ([id number]) [facility] ([facility] [address] [place] [address] Hematocrit (Bld) [Volume fraction] 33.9 % Low 41.0-52.0 [facility] Comment on above: Performed By: #### 1 9123-9 #### OLESYA CAIN ([id number]) [facility] ([facility] [address] [place] [address] Hemoglobin (Bld) [Mass/Vol] 11.0 g/dL Low 13.5-17.5 [facility] Comment on above: Performed By: #### 1 9123-9 #### OLESYA CAIN ([id number]) [facility] ([facility] [address] [place] [address] MCH (RBC) [Entitic mass] 27.4 pg Normal 26.0-34.0 [facility] Comment on above: Performed By: #### 1 9123-9 #### OLESYA CAIN ([id number]) [facility] ([facility] [address] [place] [address] MCHC (RBC) [Mass/Vol] 32.4 g/dL Normal 32.0-36.0 [facility] Comment on above: Performed By: #### 1 9123-9 #### OLESYA CAIN ([id number]) [facility] ([facility] [address] [place] [address] MCV (RBC) [Entitic vol] 84 fL Normal 80-100 [facility] Comment on above: Performed By: #### 1 9123-9 #### OLESYA CAIN ([id number]) [facility] ([facility] [address] [place] [address] Nucleated RBC/100 WBC (Bld) [Ratio] 0.0 /100 WBCs Normal 0.0-0.0 [facility] Comment on above: Performed By: #### 1 9123-9 #### OLESYA CAIN ([id number]) [facility] ([facility] [address] [place] [address] Platelets (Bld) [#/Vol] 264 x10*3/uL Normal 150-450 [facility] Comment on above: Performed By: #### 1 9123-9 #### OLESYA CAIN ([id number]) [facility] ([facility] [address] [place] [address] RBC (Bld) [#/Vol] 4.02 x10*6/uL Low 4.50-5.[address] [facility] Comment on above: Performed By: #### 1 9123-9 #### OLESYA CAIN ([id number]) [facility] ([facility] [address] [place] [address] WBC (Bld) [#/Vol] 6.6 x10*3/uL Normal 4.4-11.3 [facility] Comment on above: Performed By: #### 1 9123-9 #### OLESYA CAIN ([id number]) [facility] [address] [place] [address] Glucose Test strip manual (B ld) [Mass/Vol]on 10-05-2024 Glucose [Mass/Vol] 154 mg/dL High 74-99 [facility] Comment on above: Performed By: #### 1 9123-9 #### OLESYA CAIN ([id number]) [facility] [address] [place] [address] Glucose [Mass/Vol] 183 mg/dL High 74 - 99 mg/dL [facility] Interpretation and review of laboratory results Abnormal [facility] Glucose [Mass/Vol] 183 mg/dL High 74-99 [facility] Comment on above: Performed By: #### 1 9123-9 #### OLESYA CAIN ([id number]) [facility] [address] [place] [address] Glucose [Mass/Vol] 213 mg/dL High 74 - 99 mg/dL [facility] Interpretation and review of laboratory results Abnormal [facility] Glucose [Mass/Vol] 213 mg/dL High 74-99 [facility] Comment on above: Performed By: #### 1 9123-9 #### OLESYA CAIN ([id number]) [facility] ([facility] [address] [place] [address] Glucose [Mass/Vol] 168 mg/dL High 74 - 99 mg/dL [facility] Interpretation and review of laboratory results Abnormal [facility] Glucose [Mass/Vol] 168 mg/dL High 74-99 [facility] Comment on above: Performed By: #### 1 9123-9 #### OLESYA CAIN ([id number]) [facility] ([facility] [address] [place] [address] Magnesiumon 10-05-2024 Magnesium [Mass/Vol] 1.97 mg/dL 1.60 - 2.40 mg/dL [facility] Magnesium [Mass/Vol] 1.97 mg/dL Normal 1.60-2.[address] [facility] Comment on above: Performed By: #### 1 9123-9 #### OLESYA CAIN ([id number]) [facility] ([facility] [address] [place] [address] No Panel Informationon 10-05 Interpretation and review of laboratory results Normal [facility] Phosphateon 10-05-2024 Phosphate [Mass/Vol] 4.3 mg/dL Normal 2.5-4.[address] [facility] Comment on above: Result Comment: The performance characteristics of phosphorus testing in heparinized plasma have been validated by the individual laboratory site where testing is performed. Testing on heparinized plasma is not approved by the FDA; however, such approval is not necessary. Performed By: #### 1 9123-9 #### OLESYA CAIN ([id number]) [facility] ([facility] [address] [place] [address] Phosphoruson 10-05-2024 Phosphate [Mass/Vol] 4.3 mg/dL 2.5 - 4 .9 mg/dL [facility] Comment on above: The performance cheri acteristics of phosphorus testing in heparinized plasma have been validated by the individual laboratory site where testing is performed. Testing on heparinized plasma is not approved by the FDA; however, such approval is not necessary. Basic metabolic 2000 panelon 10-04-2024 Anion gap [Moles/Vol] 13 mmol/L 10 - 2 0 mmol/L [facility] Calcium [Mass/Vol] 9.4 mg/dL 8.6 - 10. 3 mg/dL [facility] Chloride [Moles/Vol] 100 mmol/L 98 - 10 7 mmol/L [facility] CO2 [Moles/Vol] 27 mmol/L 21 - 32 mmol/L [facility] Creatinine [Mass/Vol] 0.55 mg/dL 0.50 - 1.30 mg/dL [facility] eGFR - PINF [facility] Comment on above: Calculations of bartolome mated GFR are performed using the 2020 CKD-EPI Study Refit equation without the race variable for the IDMS-Traceable creatinine methods. https://jasn.asnjournals.org/content/early//ASN.20739 70694 Glucose [Mass/Vol] 169 mg/dL High 74 - 99 mg/dL [facility] Interpretation and review of laboratory results Abnormal [facility] Potassium [Moles/Vol] 3.8 mmol/L 3.5 - 5.3 mmol/L [facility] Sodium [Moles/Vol] 136 mmol/L 136 - 145 mmol/L [facility] Urea nitrogen [Mass/Vol] 18 mg/dL 6 - 23 mg/dL [facility] Anion gap [Moles/Vol] 13 mmol/L Normal 10-20 [facility] Comment on above: Performed By: #### 3 4529-8 #### OLESYA CAIN ([id number]) [facility] [address] [place] [address] Calcium [Mass/Vol] 9.4 mg/dL Normal 8.6-10.3 [facility] Comment on above: Performed By: #### 3 4529-8 #### OLESYA CAIN ([id number]) [facility] ([facility] [address] [place] [address] Chloride [Moles/Vol] 100 mmol/L Normal 98-[address] [facility] Comment on above: Performed By: #### 3 4529-8 #### OLESYA CAIN ([id number]) [facility] ([facility] [address] [place] [address] CO2 [Moles/Vol] 27 mmol/L Normal 21-32 [facility] Comment on above: Performed By: #### 3 4529-8 #### OLESYA CAIN ([id number]) [facility] ([facility] [address] [place] [address] Creatinine [Mass/Vol] 0.55 mg/dL Normal 0.50-1.30 [facility] Comment on above: Performed By: #### 3 4529-8 #### OLESYA CAIN ([id number]) [facility] ([facility] [address] [place] [address] GFR/1.73 sq M.predicted MDRD (S/P/Bld) [Vol rate/Area] mL/min/{1.73_m2} Normal >60 [facility] Comment on above: Result Comment: Calc ulations of estimated GFR are performed using the 2020 CKD-EPI Study Refit equation without the race variable for the IDMS-Traceable creatinine methods. https://jasn.asnjournals.org/content/early//ASN.25332 26315 Performed By: #### 3 4529-8 #### OLESYA CAIN ([id number]) [facility] [address] [place] [address] Glucose [Mass/Vol] 169 mg/dL High 74-99 [facility] Comment on above: Performed By: #### 3 4529-8 #### OLESYA CAIN ([id number]) [facility] [address] [place] [address] Potassium [Moles/Vol] 3.8 mmol/L Normal 3.5-5.3 [facility] Comment on above: Performed By: #### 3 4529-8 #### OLESYA CAIN ([id number]) [facility] ([facility] [address] [place] [address] Sodium [Moles/Vol] 136 mmol/L Normal 136-145 [facility] Comment on above: Performed By: #### 3 4529-8 #### OLESYA CAIN ([id number]) [facility] [address] [place] [address] Urea nitrogen [Mass/Vol] 18 mg/dL Normal 6-23 [facility] Comment on above: Performed By: #### 3 4529-8 #### OLESYA CAIN ([id number]) [facility] [facility] [address] [place] [address] CBC panel Auto (Bld)on 10-04 Erythrocyte distribution width (RBC) [Ratio] 16.2 % High 11.5 - 14.5 % [facility] Hematocrit (Bld) [Volume fraction] 32.9 % Low 41.0 - 52.0 % [facility] Hemoglobin (Bld) [Mass/Vol] 10.5 g/dL Low 13.5 - 17.5 g/dL [facility] Interpretation and review of laboratory results Abnormal [facility] MCH (RBC) [Entitic mass] 26.7 pg 26.0 - 34.0 pg [facility] MCHC (RBC) [Mass/Vol] 31.9 g/dL Low 32.0 - 36.0 g/dL [facility] MCV (RBC) [Entitic vol] 84 fL 80 - 100 fL [facility] Nucleated RBC/100 WBC (Bld) [Ratio] 0 % [facility] Platelets (Bld) [#/Vol] 270 10*3/uL [facility] RBC (Bld) [#/Vol] 3.93 10*6/uL Low [facility] WBC (Bld) [#/Vol] 5.2 10*3/uL [facility] Erythrocyte distribution width (RBC) [Ratio] 16.2 % High 11.5-14.5 [facility] Comment on above: Performed By: #### 3 4529-8 #### OLESYA CAIN ([id number]) [facility] ([facility] [address] [place] [address] Hematocrit (Bld) [Volume fraction] 32.9 % Low 41.0-52.0 [facility] Comment on above: Performed By: #### 3 4529-8 #### OLESYA CAIN ([id number]) [facility] ([facility] [address] [place] [address] Hemoglobin (Bld) [Mass/Vol] 10.5 g/dL Low 13.5-17.5 [facility] Comment on above: Performed By: #### 3 4529-8 #### OLESYA CAIN ([id number]) [facility] ([facility] [address] [place] [address] MCH (RBC) [Entitic mass] 26.7 pg Normal 26.0-34.0 [facility] Comment on above: Performed By: #### 3 4529-8 #### OLESYA CAIN ([id number]) [facility] ([facility] [address] [place] [address] MCHC (RBC) [Mass/Vol] 31.9 g/dL Low 32.0-36.0 [facility] Comment on above: Performed By: #### 3 4529-8 #### OLESYA CAIN ([id number]) [facility] ([facility] [address] [place] [address] MCV (RBC) [Entitic vol] 84 fL Normal 80-100 [facility] Comment on above: Performed By: #### 3 4529-8 #### OLESYA CAIN ([id number]) [facility] ([facility] [address] [place] [address] Nucleated RBC/100 WBC (Bld) [Ratio] 0.0 /100 WBCs Normal 0.0-0.0 [facility] Comment on above: Performed By: #### 3 4529-8 #### OLESYA CAIN ([id number]) [facility] ([facility] [address] [place] [address] Platelets (Bld) [#/Vol] 270 x10*3/uL Normal 150-450 [facility] Comment on above: Performed By: #### 3 4529-8 #### OLESYA CAIN ([id number]) [facility] ([facility] [address] [place] [address] RBC (Bld) [#/Vol] 3.93 x10*6/uL Low 4.50-5.[address] [facility] Comment on above: Performed By: #### 3 4529-8 #### OLESYA CAIN ([id number]) [facility] ([facility] [address] [place] [address] WBC (Bld) [#/Vol] 5.2 x10*3/uL Normal 4.4-11.3 [facility] Comment on above: Performed By: #### 3 4529-8 #### OLESYA CAIN ([id number]) [facility] ([facility] [address] [place] [address] Glucose Test strip manual (B ld) [Mass/Vol]on 10-04-2024 Glucose [Mass/Vol] 243 mg/dL High 74 - 99 mg/dL [facility] Interpretation and review of laboratory results Abnormal [facility] Glucose [Mass/Vol] 243 mg/dL High 74-99 [facility] Comment on above: Performed By: #### 1 9123-9 #### OLESYA CAIN ([id number]) [facility] ([facility] [address] [place] [address] Glucose [Mass/Vol] 224 mg/dL High 74 - 99 mg/dL [facility] Interpretation and review of laboratory results Abnormal [facility] Glucose [Mass/Vol] 224 mg/dL High 74-99 [facility] Comment on above: Performed By: #### 3 4529-8 #### OLESYA CAIN ([id number]) [facility] ([facility] [address] [place] [address] Glucose [Mass/Vol] 171 mg/dL High 74 - 99 mg/dL [facility] Interpretation and review of laboratory results Abnormal [facility] Glucose [Mass/Vol] 171 mg/dL High 74-99 [facility] Comment on above: Performed By: #### 3 4529-8 #### OLESYA CAIN ([id number]) [facility] ([facility] [address] [place] [address] Glucose [Mass/Vol] 175 mg/dL High 74 - 99 mg/dL [facility] Interpretation and review of laboratory results Abnormal [facility] Glucose [Mass/Vol] 175 mg/dL High 74-99 [facility] Comment on above: Performed By: #### 3 4529-8 #### OLESYA CAIN ([id number]) [facility] ([facility] [address] [place] [address] Magnesiumon 10-04-2024 Magnesium [Mass/Vol] 1.81 mg/dL 1.60 - 2.40 mg/dL [facility] Magnesium [Mass/Vol] 1.81 mg/dL Normal 1.60-2.[address] [facility] Comment on above: Performed By: #### 3 4529-8 #### OLESYA CAIN ([id number]) [facility] ([facility] [id number] [place], [place] [id number] No Panel Informationon 10-04 Interpretation and review of laboratory results Normal [facility] Phosphateon 10-04-2024 Phosphate [Mass/Vol] 4.3 mg/dL Normal 2.5-4.[address] [facility] Comment on above: Result Comment: The performance characteristics of phosphorus testing in heparinized plasma have been validated by the individual laboratory site where testing is performed. Testing on heparinized plasma is not approved by the FDA; however, such approval is not necessary. Performed By: #### 3 4529-8 #### OLESYA CAIN ([id number]) [facility] ([facility] [address] [place], [place] [id number] Phosphoruson 10-04-2024 Phosphate [Mass/Vol] 4.3 mg/dL 2.5 - 4 .9 mg/dL [facility] Comment on above: The performance cheri acteristics of phosphorus testing in heparinized plasma have been validated by the individual laboratory site where testing is performed. Testing on heparinized plasma is not approved by the FDA; however, such approval is not necessary. US Abdomen RUQon 10-04-2024 Distended gallbladde r. No additional findings to indicate acute cholecystitis otherwise. No wall thickening, pericholecystic fluid, or sonographic Scales sign is identified. Circumferential mural nodularity involving the gallbladder which could reflect areas of inspissated sludge, although masses are not entirely excluded. Suggest MR abdomen with and without contrast for further evaluation. MACRO: None Signed by: Silvio Barksdale 10/04/2024 10:50 AM Dictation workstation: [id number] Interpreted By: Silvio Schmitt, STUDY: US RIGHT UPPER QUADRANT; 10/04/2024 8:45 am INDICATION: Signs/Symptoms:Distende d gallbladder per CT scan. COMPARISON: None. ACCESSION NUMBER(S): [id number] ORDERING CLINICIAN: YAMILETH GILMAN TECHNIQUE: Multiple images [...] RIGHT UPPER QUADRANT; 10/04/2024 8:45 am INDICATION: Signs/Symptoms:Distende d gallbladder per CT scan. COMPARISON: None. ACCESSION NUMBER(S): [id number] ORDERING CLINICIAN: YAMILETH GILMAN TECHNIQUE: Multiple images [...] Silvio Barksdale 10/04/2024 10:50 AM Dictation workstation: [id number] [facility] Work Phone: Radiology Study observation (narrative) [facility] Work Phone: US Abdomen RUQOrdered By: [place] Barksdale on 10-04-2024 [facility] Work Phone: CBC panel Auto (Bld)on 10-03 Erythrocyte distribution width (RBC) [Ratio] 16.3 % High 11.5 - 14.5 % [facility] Hematocrit (Bld) [Volume fraction] 32.6 % Low 41.0 - 52.0 % [facility] Hemoglobin (Bld) [Mass/Vol] 10.6 g/dL Low 13.5 - 17.5 g/dL [facility] Interpretation and review of laboratory results Abnormal [facility] MCH (RBC) [Entitic mass] 27.2 pg 26.0 - 34.0 pg [facility] MCHC (RBC) [Mass/Vol] 32.5 g/dL 32.0 - 36.0 g/dL [facility] MCV (RBC) [Entitic vol] 84 fL 80 - 100 fL [facility] Nucleated RBC/100 WBC (Bld) [Ratio] 0 % [facility] Platelets (Bld) [#/Vol] 249 10*3/uL [facility] RBC (Bld) [#/Vol] 3.9 10*6/uL [facility] WBC (Bld) [#/Vol] 3.9 10*3/uL [facility] Erythrocyte distribution width (RBC) [Ratio] 16.3 % High 11.5-14.5 [facility] Comment on above: Performed By: #### 5 8410-2 #### OLESYA CAIN ([id number]) [facility] ([facility] [address] [place] [address] Hematocrit (Bld) [Volume fraction] 32.6 % Low 41.0-52.0 [facility] Comment on above: Performed By: #### 5 8410-2 #### OLESYA CAIN ([id number]) [facility] ([facility] [address] [place] [address] Hemoglobin (Bld) [Mass/Vol] 10.6 g/dL Low 13.5-17.5 [facility] Comment on above: Performed By: #### 5 8410-2 #### OLESYA CAIN ([id number]) [facility] ([facility] [address] [place] [address] MCH (RBC) [Entitic mass] 27.2 pg Normal 26.0-34.0 [facility] Comment on above: Performed By: #### 5 8410-2 #### OLESYA CAIN ([id number]) [facility] ([facility] [address] [place] [address] MCHC (RBC) [Mass/Vol] 32.5 g/dL Normal 32.0-36.0 [facility] Comment on above: Performed By: #### 5 8410-2 #### OLESYA CAIN ([id number]) [facility] ([facility] [address] [place] [address] MCV (RBC) [Entitic vol] 84 fL Normal 80-100 [facility] Comment on above: Performed By: #### 5 8410-2 #### OLESYA CAIN ([id number]) [facility] ([facility] [address] [place] [address] Nucleated RBC/100 WBC (Bld) [Ratio] 0.0 /100 WBCs Normal 0.0-0.0 [facility] Comment on above: Performed By: #### 5 8410-2 #### OLESYA CAIN ([id number]) [facility] [address] [place] [address] Platelets (Bld) [#/Vol] 249 x10*3/uL Normal 150-450 [facility] Comment on above: Performed By: #### 5 8410-2 #### OLESYA CAIN ([id number]) [facility] ([facility] [address] [place] [address] RBC (Bld) [#/Vol] 3.90 x10*6/uL Low 4.50-5.[address] [facility] Comment on above: Performed By: #### 5 8410-2 #### OLESYA CAIN ([id number]) [facility] ([facility] [address] [place] [address] WBC (Bld) [#/Vol] 3.9 x10*3/uL Low 4.4-11.3 [facility] Comment on above: Performed By: #### 5 8410-2 #### OLESYA CAIN ([id number]) [facility] ([facility] [address] [place] [address] Comprehensive metabolic 2000 panelon 10-03-2024 Albumin BCP dye [Mass/Vol] 3.9 g/dL 3.4 - 5.0 g/dL [facility] ALP [Catalytic activity/Vol] 57 U/L 33 - 136 U/L [facility] ALT With P-5'-P [Catalytic activity/Vol] 11 U/L 10 - 52 U/L [facility] Comment on above: Patients treated wit h Sulfasalazine may generate falsely decreased results for ALT. Anion gap [Moles/Vol] 12 mmol/L 10 - 2 0 mmol/L [facility] AST With P-5'-P [Catalytic activity/Vol] 8 U/L Low 9 - 39 U/L [facility] Bilirubin [Mass/Vol] 0.5 mg/dL 0.0 - 1 .2 mg/dL [facility] Calcium [Mass/Vol] 9.3 mg/dL 8.6 - 10. 3 mg/dL [facility] Chloride [Moles/Vol] 99 mmol/L 98 - 10 7 mmol/L [facility] CO2 [Moles/Vol] 27 mmol/L 21 - 32 mmol/L [facility] Creatinine [Mass/Vol] 0.56 mg/dL 0.50 - 1.30 mg/dL [facility] eGFR - PINF [facility] Comment on above: Calculations of bartolome mated GFR are performed using the 2020 CKD-EPI Study Refit equation without the race variable for the IDMS-Traceable creatinine methods. https://jasn.asnjournals.org/content//ASN.15599 [address]98 Glucose [Mass/Vol] 169 mg/dL High 74 - 99 mg/dL [facility] Interpretation and review of laboratory results Abnormal [facility] Potassium [Moles/Vol] 4.1 mmol/L 3.5 - 5.3 mmol/L [facility] Protein [Mass/Vol] 6.2 g/dL Low 6.4 - 8.2 g/dL [facility] Sodium [Moles/Vol] 134 mmol/L Low 136 - 145 mmol/L [facility] Urea nitrogen [Mass/Vol] 19 mg/dL 6 - 23 mg/dL [facility] Albumin BCP dye [Mass/Vol] 3.9 g/dL Normal 3.4-5.0 [facility] Comment on above: Performed By: #### 5 8410-2 #### OLESYA CAIN ([id number]) [facility] [address] [place] [address] ALP [Catalytic activity/Vol] 57 U/L Normal 33-136 [facility] Comment on above: Performed By: #### 5 8410-2 #### OLESYA CAIN ([id number]) [facility] ([facility] [address] [place] [address] ALT With P-5'-P [Catalytic activity/Vol] 11 U/L Normal 10-52 [facility] Comment on above: Result Comment: Gisella ents treated with Sulfasalazine may generate falsely decreased results for ALT. Performed By: #### 5 8410-2 #### OLESYA CAIN ([id number]) [facility] ([facility] [address] [place] [address] Anion gap [Moles/Vol] 12 mmol/L Normal 10-20 [facility] Comment on above: Performed By: #### 5 8410-2 #### OLESYA CAIN ([id number]) [facility] ([facility] [address] [place] [address] AST With P-5'-P [Catalytic activity/Vol] 8 U/L Low 9-39 [facility] Comment on above: Performed By: #### 5 8410-2 #### OLESYA CAIN ([id number]) [facility] [address] [place] [address] Bilirubin [Mass/Vol] 0.5 mg/dL Normal 0.0-1.[address] [facility] Comment on above: Performed By: #### 5 8410-2 #### OLESYA CAIN ([id number]) [facility] ([facility] [address] [place] [address] Calcium [Mass/Vol] 9.3 mg/dL Normal 8.6-10.3 [facility] Comment on above: Performed By: #### 5 8410-2 #### OLESYA CAIN ([id number]) [facility] [address] [place] [address] Chloride [Moles/Vol] 99 mmol/L Normal 98-[address] [facility] Comment on above: Performed By: #### 5 8410-2 #### OLESYA CAIN ([id number]) [facility] [address] [place] [address] CO2 [Moles/Vol] 27 mmol/L Normal 21-32 [facility] Comment on above: Performed By: #### 5 8410-2 #### OLESYA CAIN ([id number]) [facility] ([facility] [address] [place] [address] Creatinine [Mass/Vol] 0.56 mg/dL Normal 0.50-1.30 [facility] Comment on above: Performed By: #### 5 8410-2 #### OLESYA CAIN ([id number]) [facility] ([facility] [address] [place] [address] GFR/1.73 sq M.predicted MDRD (S/P/Bld) [Vol rate/Area] mL/min/{1.73_m2} Normal >60 [facility] Comment on above: Result Comment: Calc ulations of estimated GFR are performed using the 2020 CKD-EPI Study Refit equation without the race variable for the IDMS-Traceable creatinine methods. https://jasn.asnjournals.org/content//ASN.60576 94593 Performed By: #### 5 8410-2 #### OLESYA CAIN ([id number]) [facility] ([facility] [address] [place] [address] Glucose [Mass/Vol] 169 mg/dL High 74-99 [facility] Comment on above: Performed By: #### 5 8410-2 #### OLESYA CAIN ([id number]) [facility] [address] [place] [address] Potassium [Moles/Vol] 4.1 mmol/L Normal 3.5-5.3 [facility] Comment on above: Performed By: #### 5 8410-2 #### OLESYA CAIN ([id number]) [facility] ([facility] [address] [place] [address] Protein [Mass/Vol] 6.2 g/dL Low 6.4-8.2 [facility] Comment on above: Performed By: #### 5 8410-2 #### OLESYA CAIN ([id number]) [facility] ([facility] [address] [place] [address] Sodium [Moles/Vol] 134 mmol/L Low 136-145 [facility] Comment on above: Performed By: #### 5 8410-2 #### OLESYA CAIN ([id number]) [facility] ([facility] [address] [place] [address] Urea nitrogen [Mass/Vol] 19 mg/dL Normal 6-23 [facility] Comment on above: Performed By: #### 5 8410-2 #### OLESYA CAIN ([id number]) [facility] ([facility] [address] [place] [address] Extra Urine Alba Tubeon 12-0 Extra Tube Hold for add-ons. [facility] Comment on above: Auto resulted. [facility] Glucose Test strip manual (B ld) [Mass/Vol]on 10-03-2024 Glucose [Mass/Vol] 199 mg/dL High 74 - 99 mg/dL [facility] Interpretation and review of laboratory results Abnormal [facility] Glucose [Mass/Vol] 199 mg/dL High 74-99 [facility] Comment on above: Performed By: #### 3 4529-8 #### OLESYA CAIN ([id number]) [facility] ([facility] [address] [place] [address] Glucose [Mass/Vol] 156 mg/dL High 74 - 99 mg/dL [facility] Interpretation and review of laboratory results Abnormal [facility] Glucose [Mass/Vol] 156 mg/dL High 74-99 [facility] Comment on above: Performed By: #### 5 8410-2 #### OLESYA CAIN ([id number]) [facility] ([facility] [address] [place] [address] Glucose [Mass/Vol] 171 mg/dL High 74 - 99 mg/dL [facility] Interpretation and review of laboratory results Abnormal [facility] Glucose [Mass/Vol] 171 mg/dL High 74-99 [facility] Comment on above: Performed By: #### 5 8410-2 #### OLESYA CAIN ([id number]) [facility] ([facility] [address] [place] [address] Glucose [Mass/Vol] 183 mg/dL High 74 - 99 mg/dL [facility] Interpretation and review of laboratory results Abnormal [facility] Glucose [Mass/Vol] 183 mg/dL High 74-99 [facility] Comment on above: Performed By: #### 5 8410-2 #### OLESYA CAIN ([id number]) [facility] ([facility] [address] [place] [address] Hemoglobin and Hematocrit pa radha (Bld)on 10-03-2024 Hematocrit (Bld) [Volume fraction] 32.2 % Low 41.0 - 52.0 % [facility] Hemoglobin (Bld) [Mass/Vol] 10.6 g/dL Low 13.5 - 17.5 g/dL [facility] Interpretation and review of laboratory results Abnormal [facility] Hematocrit (Bld) [Volume fraction] 32.2 % Low 41.0-52.0 [facility] Comment on above: Performed By: #### 3 4529-8 #### OLESYA CAIN ([id number]) [facility] ([facility] [address] [place] [address] Hemoglobin (Bld) [Mass/Vol] 10.6 g/dL Low 13.5-17.5 [facility] Comment on above: Performed By: #### 3 4529-8 #### OLESYA CAIN ([id number]) [facility] ([facility] [address] [place] [address] Magnesiumon 10-03-2024 Magnesium [Mass/Vol] 1.79 mg/dL 1.60 - 2.40 mg/dL [facility] Magnesium [Mass/Vol] 1.79 mg/dL Normal 1.60-2.[address] [facility] Comment on above: Performed By: #### 5 8410-2 #### OLESYA CAIN ([id number]) [facility] ([facility] [address] [place] [address] No Panel Informationon 10-03 Interpretation and review of laboratory results Normal [facility] Phosphateon 10-03-2024 Phosphate [Mass/Vol] 4.3 mg/dL Normal 2.5-4.[address] [facility] Comment on above: Result Comment: The performance characteristics of phosphorus testing in heparinized plasma have been validated by the individual laboratory site where testing is performed. Testing on heparinized plasma is not approved by the FDA; however, such approval is not necessary. Performed By: #### 5 8410-2 #### OLESYA CAIN ([id number]) [facility] ([facility] [address] [place], [place] [address] Phosphoruson 10-03-2024 Phosphate [Mass/Vol] 4.3 mg/dL 2.5 - 4 .9 mg/dL [facility] Comment on above: The performance cheri acteristics of phosphorus testing in heparinized plasma have been validated by the individual laboratory site where testing is performed. Testing on heparinized plasma is not approved by the FDA; however, such approval is not necessary. CBC panel Auto (Bld)on 10-02 Erythrocyte distribution width (RBC) [Ratio] 16.2 % High 11.5 - 14.5 % [facility] Hematocrit (Bld) [Volume fraction] 35.2 % Low 41.0 - 52.0 % [facility] Hemoglobin (Bld) [Mass/Vol] 10.8 g/dL Low 13.5 - 17.5 g/dL [facility] Interpretation and review of laboratory results Abnormal [facility] MCH (RBC) [Entitic mass] 27 pg 26.0 - 34.0 pg [facility] MCHC (RBC) [Mass/Vol] 30.7 g/dL Low 32.0 - 36.0 g/dL [facility] MCV (RBC) [Entitic vol] 88 fL 80 - 100 fL [facility] Nucleated RBC/100 WBC (Bld) [Ratio] 0 % [facility] Platelets (Bld) [#/Vol] 250 10*3/uL [facility] RBC (Bld) [#/Vol] 4 10*6/uL Low [facility] WBC (Bld) [#/Vol] 4.3 10*3/uL Low [facility] Erythrocyte distribution width (RBC) [Ratio] 16.2 % High 11.5-14.5 [facility] Comment on above: Performed By: #### 5 8410-2 #### OLESYA CAIN ([id number]) [facility] ([facility] [address] [place] [address] Hematocrit (Bld) [Volume fraction] 35.2 % Low 41.0-52.0 [facility] Comment on above: Performed By: #### 5 8410-2 #### OLESYA CAIN ([id number]) [facility] ([facility] [address] [place] [address] Hemoglobin (Bld) [Mass/Vol] 10.8 g/dL Low 13.5-17.5 [facility] Comment on above: Performed By: #### 5 8410-2 #### OLESYA CAIN ([id number]) [facility] ([facility] [address] [place] [address] MCH (RBC) [Entitic mass] 27.0 pg Normal 26.0-34.0 [facility] Comment on above: Performed By: #### 5 8410-2 #### OLESYA CAIN ([id number]) [facility] ([facility] [address] [place] [address] MCHC (RBC) [Mass/Vol] 30.7 g/dL Low 32.0-36.0 [facility] Comment on above: Performed By: #### 5 8410-2 #### OLESYA CAIN ([id number]) [facility] ([facility] [address] [place] [address] MCV (RBC) [Entitic vol] 88 fL Normal 80-100 [facility] Comment on above: Performed By: #### 5 8410-2 #### OLESYA CAIN ([id number]) [facility] ([facility] [address] [place] [address] Nucleated RBC/100 WBC (Bld) [Ratio] 0.0 /100 WBCs Normal 0.0-0.0 [facility] Comment on above: Performed By: #### 5 8410-2 #### OLESYA CAIN ([id number]) [facility] ([facility] [address] [place] [address] Platelets (Bld) [#/Vol] 250 x10*3/uL Normal 150-450 [facility] Comment on above: Performed By: #### 5 8410-2 #### OLESYA CAIN ([id number]) [facility] ([facility] [address] [place] [address] RBC (Bld) [#/Vol] 4.00 x10*6/uL Low 4.50-5.[address] [facility] Comment on above: Performed By: #### 5 8410-2 #### OLESYA CAIN ([id number]) [facility] ([facility] [address] [place] [address] WBC (Bld) [#/Vol] 4.3 x10*3/uL Low 4.4-11.3 [facility] Comment on above: Performed By: #### 5 8410-2 #### OLESYA CAIN ([id number]) [facility] [address] [place] [address] CT ABDOMEN PELVIS WO IV CONT Irene 10-02-2024 CT ABDOMEN PELVIS WO IV CONTRAST Interpreted By: Jermaine Beckford, STUDY: CT ABDOMEN PELVIS WO IV CONTRAST; 10/02/2024 8:17 am INDICATION: Signs/Symptoms:hematuri a with clots COMPARISON: None ACCESSION NUMBER(S): [id number] ORDERING CLINICIAN: HNOG GRANT TECHNIQUE: Spiral axial [...] Jermaine Beckford 10/02/2024 10:27 AM Dictation workstation: [id number] [facility] CT Abdomen WO contraston 1. Large complex cys tic lesion involving the upper pole of the [...] Jermaine Beckford 10/02/2024 10:27 AM Dictation workstation: [id number] MMODAL Interpreted By: Jermaine Beckford, STUDY: CT ABDOMEN PELVIS WO IV CONTRAST; 10/02/2024 8:17 am INDICATION: Signs/Symptoms:hematuri a with clots COMPARISON: None ACCESSION NUMBER(S): [id number] ORDERING CLINICIAN: HONG GRANT TECHNIQUE: Spiral axial [...] of the L5 over the S1 vertebra. MMODAL Jermaine Beckford MD - 10/02/2024 Interpreted By: Jermaine Beckford, STUDY: CT ABDOMEN PELVIS WO IV CONTRAST; 10/02/2024 8:17 am INDICATION: Signs/Symptoms:hematuri a with clots COMPARISON: None ACCESSION NUMBER(S): [id number] ORDERING CLINICIAN: HONG GRANT TECHNIQUE: Spiral axial [...] Jermaine Beckford 10/02/2024 10:27 AM Dictation workstation: [id number] [facility] Work Phone: Radiology Study observation (narrative) [facility] Work Phone: CT Abdomen WO contrastOrdere d By: Jermaine Beckford on 10-02-2024 [facility] Work Phone: Comprehensive metabolic 2000 panelon 10-02-2024 Albumin BCP dye [Mass/Vol] 4 g/dL 3.4 - 5.0 g/dL [facility] ALP [Catalytic activity/Vol] 60 U/L 33 - 136 U/L [facility] ALT With P-5'-P [Catalytic activity/Vol] 11 U/L 10 - 52 U/L [facility] Comment on above: Patients treated wit h Sulfasalazine may generate falsely decreased results for ALT. Anion gap [Moles/Vol] 12 mmol/L 10 - 2 0 mmol/L [facility] AST With P-5'-P [Catalytic activity/Vol] 8 U/L Low 9 - 39 U/L [facility] Bilirubin [Mass/Vol] 0.5 mg/dL 0.0 - 1 .2 mg/dL [facility] Calcium [Mass/Vol] 9.2 mg/dL 8.6 - 10. 3 mg/dL [facility] Chloride [Moles/Vol] 100 mmol/L 98 - 10 7 mmol/L [facility] CO2 [Moles/Vol] 27 mmol/L 21 - 32 mmol/L [facility] Creatinine [Mass/Vol] 0.46 mg/dL Low 0.50 - 1.30 mg/dL [facility] eGFR - PINF [facility] Comment on above: Calculations of bartolome mated GFR are performed using the 2020 CKD-EPI Study Refit equation without the race variable for the IDMS-Traceable creatinine methods. https://jasn.asnjournals.org/content//ASN.68140 02787 Glucose [Mass/Vol] 181 mg/dL High 74 - 99 mg/dL [facility] Interpretation and review of laboratory results Abnormal [facility] Potassium [Moles/Vol] 4 mmol/L 3.5 - 5.3 mmol/L [facility] Protein [Mass/Vol] 6.4 g/dL 6.4 - 8.2 g/dL [facility] Sodium [Moles/Vol] 135 mmol/L Low 136 - 145 mmol/L [facility] Urea nitrogen [Mass/Vol] 20 mg/dL 6 - 23 mg/dL [facility] Albumin BCP dye [Mass/Vol] 4.0 g/dL Normal 3.4-5.0 [facility] Comment on above: Performed By: #### 2 4323-8 #### OLESYA CAIN ([id number]) [facility] [place] [address] [place] [address] ALP [Catalytic activity/Vol] 60 U/L Normal 33-136 [facility] Comment on above: Performed By: #### 2 4323-8 #### OLESYA CAIN ([id number]) [facility] [address] [place] [address] ALT With P-5'-P [Catalytic activity/Vol] 11 U/L Normal 10-52 [facility] Comment on above: Result Comment: Gisella ents treated with Sulfasalazine may generate falsely decreased results for ALT. Performed By: #### 2 4323-8 #### OLESYA CAIN ([id number]) [facility] [address] [place] [address] Anion gap [Moles/Vol] 12 mmol/L Normal 10-20 [facility] Comment on above: Performed By: #### 2 4323-8 #### OLESYA CAIN ([id number]) [facility] [address] [place] [address] AST With P-5'-P [Catalytic activity/Vol] 8 U/L Low 9-39 [facility] Comment on above: Performed By: #### 2 4323-8 #### OLESYA CAIN ([id number]) [facility] [address] [place] [address] Bilirubin [Mass/Vol] 0.5 mg/dL Normal 0.0-1.[address] [facility] Comment on above: Performed By: #### 2 4323-8 #### OLESYA CAIN ([id number]) [facility] ([facility] [address] [place] [address] Calcium [Mass/Vol] 9.2 mg/dL Normal 8.6-10.3 [facility] Comment on above: Performed By: #### 2 4323-8 #### OLESYA CAIN ([id number]) [facility] [address] [place] [address] Chloride [Moles/Vol] 100 mmol/L Normal 98-[address] [facility] Comment on above: Performed By: #### 2 4323-8 #### OLESYA CAIN ([id number]) [facility] [address] [place] [address] CO2 [Moles/Vol] 27 mmol/L Normal 21-32 [facility] Comment on above: Performed By: #### 2 4323-8 #### OLESYA CAIN ([id number]) [facility] [address] [place] [address] Creatinine [Mass/Vol] 0.46 mg/dL Low 0.50-1.30 [facility] Comment on above: Performed By: #### 2 4323-8 #### OLESYA CAIN ([id number]) [facility] ([facility] [address] [place] [address] GFR/1.73 sq M.predicted MDRD (S/P/Bld) [Vol rate/Area] mL/min/{1.73_m2} Normal >60 [facility] Comment on above: Result Comment: Calc ulations of estimated GFR are performed using the 2020 CKD-EPI Study Refit equation without the race variable for the IDMS-Traceable creatinine methods. https://jasn.asnjournals.org/content//ASN.80475 59567 Performed By: #### 2 4323-8 #### OLESYA CAIN ([id number]) [facility] ([facility] [address] [facility] [place] [address] Glucose [Mass/Vol] 181 mg/dL High 74-99 [facility] Comment on above: Performed By: #### 2 4323-8 #### OLESYA CAIN ([id number]) [facility] [address] [place] [address] Potassium [Moles/Vol] 4.0 mmol/L Normal 3.5-5.3 [facility] Comment on above: Performed By: #### 2 4323-8 #### OLESYA CAIN ([id number]) [facility] ([facility] [address] [place] [address] Protein [Mass/Vol] 6.4 g/dL Normal 6.4-8.2 [facility] Comment on above: Performed By: #### 2 4323-8 #### OLESYA CAIN ([id number]) [facility] [address] [place] [address] Sodium [Moles/Vol] 135 mmol/L Low 136-145 [facility] Comment on above: Performed By: #### 2 4323-8 #### OLESYA CAIN ([id number]) [facility] [address] [place] [address] Urea nitrogen [Mass/Vol] 20 mg/dL Normal 6-23 [facility] Comment on above: Performed By: #### 2 4323-8 #### OLESYA CAIN ([id number]) [facility] [address] [place] [address] ECG 12 LeadOrdered By: Luis Noel on 12-07-2024 Atrial Rate 55 BPM [facility] Work Phone: P Balmorhea 13 degrees [facility] Work Phone: P Offset 203 ms [facility] Work Phone: P Onset 141 ms [facility] Work Phone: MD Interval 168 ms [facility] Work Phone: Q Onset 225 ms [facility] Work Phone: QRS Count 9 beats [facility] Work Phone: QRS Duration 106 ms [facility] Work Phone: QT Interval 434 ms [facility] Work Phone: QTC Calculation(Bazett) [address] [facility] Work Phone: QTC Fredericia [address] [facility] Work Phone: R Balmorhea -25 degrees [facility] Work Phone: T Balmorhea -13 degrees [facility] Work Phone: T Offset 442 ms [facility] Work Phone: Ventricular Rate 55 BPM [facility] Work Phone: [facility] Work Phone: ECG 12 Leadon 10-02-2024 Sinus bradycardia Moderate voltage criteria for LVH, may be normal variant No previous ECGs available Reconfirmed by Luis Noel ([id number]) on 10/02/2024 3:37:50 PM Luis Felder M D - 10/02/2024 Sinus bradycardia Moderate voltage criteria for LVH, may be normal variant No previous ECGs available Reconfirmed by Luis Noel ([id number]) on 10/02/2024 3:37:50 PM [facility] Work Phone: ECG 12-LEADon 10-02-2024 ECG 12-LEAD Ventricular Rate 55 Atrial Rate 55 P-R Interval 168 QRS Duration 106 Q-T Interval 434 QTC Calculation(Bazett) 415 P Balmorhea 13 R Balmorhea -25 T Balmorhea -13 QRS Count 9 Q Onset 225 P Onset 141 P Offset 203 T Offset 442 QTC Fredericia 421 Diagnosis Sinus bradycardia Moderate voltage criteria for LVH, may be normal variant No previous ECGs available Reconfirmed by Luis Noel ([id number]) on 10/02/2024 3:37:50 PM Normal [facility] Glucose Test strip manual (B ld) [Mass/Vol]on 10-02-2024 Glucose [Mass/Vol] 192 mg/dL High 74 - 99 mg/dL [facility] Interpretation and review of laboratory results Abnormal [facility] Glucose [Mass/Vol] 192 mg/dL High 74-99 [facility] Comment on above: Performed By: #### 5 8410-2 #### OLESYA CAIN ([id number]) [facility] [address] [place] [address] Glucose [Mass/Vol] 179 mg/dL High 74 - 99 mg/dL [facility] Interpretation and review of laboratory results Abnormal [facility] Glucose [Mass/Vol] 179 mg/dL High 74-99 [facility] Comment on above: Performed By: #### 5 8410-2 #### OLESYA CAIN ([id number]) [facility] [address] [place] [address] Glucose [Mass/Vol] 188 mg/dL High 74 - 99 mg/dL [facility] Interpretation and review of laboratory results Abnormal [facility] Glucose [Mass/Vol] 188 mg/dL High 74-99 [facility] Comment on above: Performed By: #### 2 341-6 #### OLESYA CAIN ([id number]) [facility] [address] [place] [address] Glucose [Mass/Vol] 173 mg/dL High 74 - 99 mg/dL [facility] Interpretation and review of laboratory results Abnormal [facility] Glucose [Mass/Vol] 173 mg/dL High 74-99 [facility] Comment on above: Performed By: #### 2 341-6 #### OLESYA CAIN ([id number]) [facility] [address] [place] [address] Glucose [Mass/Vol] 160 mg/dL High 74 - 99 mg/dL [facility] Comment on above: RN NOTIFIED Interpretation and review of laboratory results Abnormal [facility] Glucose [Mass/Vol] 160 mg/dL High 74-99 [facility] Comment on above: Result Comment: RN N OTIFIED Performed By: #### 2 341-6 #### OLESYA CAIN ([id number]) [facility] [address] [place] [address] Magnesiumon 10-02-2024 Magnesium [Mass/Vol] 1.69 mg/dL 1.60 - 2.40 mg/dL [facility] Magnesium [Mass/Vol] 1.69 mg/dL Normal 1.60-2.[address] [facility] Comment on above: Performed By: #### 1 9123-9 #### OLESYA CAIN ([id number]) [facility] ([facility] [address] [place] [address] No Panel Informationon 10-02 Interpretation and review of laboratory results Normal [facility] PT and aPTT panel Coag (PPP) on 10-02-2024 aPTT Coag (PPP) [Time] 32 s [facility] INR Coag (PPP) [Relative time] 1.2 {INR} High 0.9 - 1.1 [facility] Interpretation and review of laboratory results Abnormal [facility] PT Coag (PPP) [Time] 13.1 s High [facility] The APTT is no longe r used for monitoring Unfractionated Heparin Therapy. For monitoring Heparin Therapy, use the Heparin Assay. [facility] aPTT Coag (PPP) [Time] 32 s Normal 27-38 Un [facility] Comment on above: Order Comment: The A PTT is no longer used for monitoring Unfractionated Heparin Therapy. For monitoring Heparin Therapy, use the Heparin Assay. Performed By: #### 3 4529-8 #### OLESYA CAIN ([id number]) [facility] [address] [place] [address] INR Coag (PPP) [Relative time] 1.2 High 0.9-1.1 [facility] Comment on above: Order Comment: The A PTT is no longer used for monitoring Unfractionated Heparin Therapy. For monitoring Heparin Therapy, use the Heparin Assay. Performed By: #### 3 4529-8 #### OLESYA CAIN ([id number]) [facility] ([facility] [address] [place] [address] PT Coag (PPP) [Time] 13.1 s High 9.8-12.[address] [facility] Comment on above: Order Comment: The A PTT is no longer used for monitoring Unfractionated Heparin Therapy. For monitoring Heparin Therapy, use the Heparin Assay. Performed By: #### 3 4529-8 #### OLESYA CAIN ([id number]) [facility] ([facility] [address] [place] [address] Phosphateon 10-02-2024 Phosphate [Mass/Vol] 3.1 mg/dL Normal 2.5-4.[address] [facility] Comment on above: Result Comment: The performance characteristics of phosphorus testing in heparinized plasma have been validated by the individual laboratory site where testing is performed. Testing on heparinized plasma is not approved by the FDA; however, such approval is not necessary. Performed By: #### 2 777-1 #### OLESYA CAIN ([id number]) [facility] [address] [place] [address] Phosphoruson 10-02-2024 Phosphate [Mass/Vol] 3.1 mg/dL 2.5 - 4 .9 mg/dL [facility] Comment on above: The performance cheri acteristics of phosphorus testing in heparinized plasma have been validated by the individual laboratory site where testing is performed. Testing on heparinized plasma is not approved by the FDA; however, such approval is not necessary. US RIGHT UPPER QUADRANTon US RIGHT UPPER QUADRANT Interpreted By: Silvio Barksdale, STUDY: US RIGHT UPPER QUADRANT; 10/04/2024 8:45 am INDICATION: Signs/Symptoms:Distende d gallbladder per CT scan. COMPARISON: None. ACCESSION NUMBER(S): [id number] ORDERING CLINICIAN: YAMILETH GILMAN TECHNIQUE: Multiple images [...] Silvio Barksdale 10/04/2024 10:50 AM Dictation workstation: [id number] Normal [facility] Urinalysis complete W Reflex Culture panel (U)on 10-02-2024 Appearance (U) Clear Clear [facility] Bilirubin (U) [Mass/Vol] Negative NEGATIVE [facility] Color (U) Colorless Abnormal Light-Potter ow, Yellow, Dark-Yello w [facility] Glucose Auto test strip (U) [Mass/Vol] Normal Normal mg/dL [facility] Interpretation and review of laboratory results Abnormal [facility] Interpretation and review of laboratory results Normal [facility] Ketones (U) [Mass/Vol] Negative NEGAT FARHEEN mg/dL [facility] Leukocyte esterase Auto test strip Ql (U) Negative NEGATIVE [facility] Nitrite Auto test strip Ql (U) Negative NEGATIVE [facility] pH (U) 6.5 [pH] 5.0, 5.5, 6.0, 6.5, 7.0, 7.5, 8.0 [facility] Protein (U) [Mass/Vol] Negative NEGAT FARHEEN, 10 (TRACE), 20 (TRACE) mg/dL [facility] RBC (U) [#/Vol] OVER (3+) Abnormal NEGATIVE [facility] RBC Auto (Urine sed) [#/Area] 3-5 NONE, 1-2, 3-5 /HPF [facility] Specific gravity (U) [Rel density] 1.011 1.005 - 1.035 [facility] Urobilinogen (U) [Mass/Vol] Normal Normal mg/dL [facility] WBC Auto (Urine sed) [#/Area] 1-5 1-5, NONE /HPF [facility] OVER is reported whe n the result is greater than the clinically reportable range. [facility] Appearance (U) Clear Normal Clear [facility] Comment on above: Order Comment: Obtai n sample from current catheter, was changed in last 48 hoursOVER is reported when the result is greater than the clinically reportable range. Performed By: #### 5 8410-2 #### OLESYA CAIN ([id number]) [facility] [address] [place] [address] Bilirubin (U) [Mass/Vol] Negative Normal NEGATIVE [facility] Comment on above: Order Comment: Obtai n sample from current catheter, was changed in last 48 hoursOVER is reported when the result is greater than the clinically reportable range. Performed By: #### 5 8410-2 #### OLESYA CAIN ([id number]) [facility] [address] [place] [address] Color (U) Colorless Normal Light-Potter ow, Yellow, Dark-Yello w [facility] Comment on above: Order Comment: Obtai n sample from current catheter, was changed in last 48 hoursOVER is reported when the result is greater than the clinically reportable range. Performed By: #### 5 8410-2 #### OLESYA CAIN ([id number]) [facility] [address] [place] [address] Glucose Auto test strip (U) [Mass/Vol] Normal Normal Normal [facility] Comment on above: Order Comment: Obtai n sample from current catheter, was changed in last 48 hoursOVER is reported when the result is greater than the clinically reportable range. Performed By: #### 5 8410-2 #### OLESYA CAIN ([id number]) [facility] ([facility] [address] [place] [address] Ketones (U) [Mass/Vol] Negative Normal NEGATIVE [facility] Comment on above: Order Comment: Obtai n sample from current catheter, was changed in last 48 hoursOVER is reported when the result is greater than the clinically reportable range. Performed By: #### 5 8410-2 #### OLESYA CAIN ([id number]) [facility] ([facility] [address] [place] [address] Leukocyte esterase Auto test strip Ql (U) Negative Normal NEGATIVE [facility] Comment on above: Order Comment: Obtai n sample from current catheter, was changed in last 48 hoursOVER is reported when the result is greater than the clinically reportable range. Performed By: #### 5 8410-2 #### OLESYA CAIN ([id number]) [facility] ([facility] [address] [place] [address] Nitrite Auto test strip Ql (U) Negative Normal NEGATIVE [facility] Comment on above: Order Comment: Obtai n sample from current catheter, was changed in last 48 hoursOVER is reported when the result is greater than the clinically reportable range. Performed By: #### 5 8410-2 #### OLESYA CAIN ([id number]) [facility] ([facility] [address] [place] [address] pH (U) 6.5 [pH] Normal 5.0, 5.5, 6.0, 6.5, 7.0, 7.5, 8.0 [facility] Comment on above: Order Comment: Obtai n sample from current catheter, was changed in last 48 hoursOVER is reported when the result is greater than the clinically reportable range. Performed By: #### 5 8410-2 #### OLESYA CAIN ([id number]) [facility] ([facility] [address] [place] [address] Protein (U) [Mass/Vol] Negative Normal NEGAT FARHEEN, 10 (TRACE), 20 (TRACE) [facility] Comment on above: Order Comment: Obtai n sample from current catheter, was changed in last 48 hoursOVER is reported when the result is greater than the clinically reportable range. Performed By: #### 5 8410-2 #### OLESYA CAIN ([id number]) [facility] ([facility] [address] [place] [address] RBC (U) [#/Vol] OVER (3+) Abnormal NEGATIVE [facility] Comment on above: Order Comment: Obtai n sample from current catheter, was changed in last 48 hoursOVER is reported when the result is greater than the clinically reportable range. Performed By: #### 5 8410-2 #### OLESYA CAIN ([id number]) [facility] ([facility] [address] [place] [address] RBC Auto (Urine sed) [#/Area] 3-5 Normal NONE, 1-2, 3-5 [facility] Comment on above: Order Comment: Obtai n sample from current catheter, was changed in last 48 hours Performed By: #### 5 8077-9 #### OLESYA CAIN ([id number]) [facility] [address] [place] [address] Specific gravity (U) [Rel density] 1.011 Normal 1.005-1.03 5 [facility] Comment on above: Order Comment: Obtai n sample from current catheter, was changed in last 48 hoursOVER is reported when the result is greater than the clinically reportable range. Performed By: #### 5 8410-2 #### OLESYA CAIN ([id number]) [facility] [address] [place] [address] Urobilinogen (U) [Mass/Vol] Normal Normal Normal [facility] Comment on above: Order Comment: Obtai n sample from current catheter, was changed in last 48 hoursOVER is reported when the result is greater than the clinically reportable range. Performed By: #### 5 8410-2 #### OLESYA CAIN ([id number]) [facility] [address] [place] [address] WBC Auto (Urine sed) [#/Area] 1-5 Normal 1-5, NONE [facility] Comment on above: Order Comment: Obtai n sample from current catheter, was changed in last 48 hours Performed By: #### 5 8077-9 #### OLESYA CAIN ([id number]) [facility] [address] [place] [address] Basophils Auto (Bld) [#/Vol] on 10-01-2024 Basophils (Bld) [#/Vol] Automated basophil count 0.0-0.1 [facility] Basophils/100 WBC Auto (Bld) on 10-01-2024 Basophils/100 WBC (Bld) Automated basophil % 0.2-2.0 [facility] Eosinophils/100 WBC Auto (Bl d)on 10-01-2024 Eosinophils/100 WBC (Bld) Automated eosinophil % 0.9-7.0 [facility] Erythrocyte distribution wid th Auto (RBC) [Ratio]on 10-01-2024 Erythrocyte distribution width (RBC) [Ratio] Erythrocyte distribution width [Ratio] by Automated count High 11.0-15.0 [facility] Estimated glomerular filtrat ion rate (GFR) non- Americanon 10-01-2024 GFR/1.73 sq M.predicted among non-blacks MDRD (S/P/Bld) [Vol rate/Area] Estimated glomerular filtration rate (GFR) non- >=60 mL/min/1.7 3m 2 [facility] Hematocrit Auto (Bld) [Volum e fraction]on 10-01-2024 Hematocrit (Bld) [Volume fraction] Hematocrit [Volume Fraction] of Blood by Automated count Low 42.0-54.0 [facility] Hemoglobin [Mass/volume] in Bloodon 10-01-2024 Hemoglobin (Bld) [Mass/Vol] Hemoglobin [Mass/volume] in Blood Low 14.0-18.0 [facility] Laboratory - Chemistry and C hemistry - challengeon 10-01-2024 Calcium [Mass/Vol] 9.2 mg/dL 8.5-10.1 [facility] Chloride [Moles/Vol] 102 mmol/L 98-107 [facility] CO2 [Moles/Vol] 29.7 mmol/L 21.0-32.0 [facility] Creatinine [Mass/Vol] 0.72 mg/dL 0.70-1.30 [facility] GFR/1.73 sq M.predicted MDRD (S/P/Bld) [Vol rate/Area] mL/min/{1.73_m2} >=60 mL/min/1.7 2 [facility] Glucose [Mass/Vol] 167 mg/dL High 74-106 [facility] Potassium [Moles/Vol] 4.0 mmol/L 3.5-5.1 [facility] Sodium [Moles/Vol] 139 mmol/L 136-145 [facility] Urea nitrogen [Mass/Vol] 23.0 mg/dL High 7.0-18.0 [facility] Urea nitrogen/Creatinine [Mass ratio] 31.9 mg/mg [facility] - Hematology and Cell countson 10-01-2024 Immature granulocytes/100 WBC (Bld) 0.2 % 0.0-0.5 [facility] Leukocytes [#/volume] correc willian for nucleated erythrocytes in Blood by Automated counon 10-01-2024 WBC corrected for nucl RBC Auto (Bld) [#/Vol] Leukocytes [#/volume] corrected for nucleated erythrocytes in Blood by Automated coun 4.0-11.0 [facility] Lymphocytes Auto (Bld) [#/Vo l]on 10-01-2024 Lymphocytes (Bld) [#/Vol] Lymphocytes [#/volume] in Blood by Automated count 1.2-3.8 [facility] Lymphocytes/100 WBC Auto (Bl d)on 10-01-2024 Lymphocytes/100 WBC (Bld) Lymphocytes/100 leukocytes in Blood by Automated count 20.5-60.0 [facility] MCH Auto (RBC) [Entitic mass ]on 10-01-2024 MCH (RBC) [Entitic mass] MCH [Entitic mass] by Automated count 25.9-34.0 [facility] MCHC Auto (RBC) [Mass/Vol]on 10-01-2024 MCHC (RBC) [Mass/Vol] MCHC [Mass/volume] by Automated count 29.9-35.2 [facility] MCV Auto (RBC) [Entitic vol] on 10-01-2024 MCV (RBC) [Entitic vol] MCV [Entitic volume] by Automated count 80.0-94.0 [facility] Monocytes Auto (Bld) [#/Vol] on 10-01-2024 Monocytes (Bld) [#/Vol] Automated blood monocyte count 0.3-0.8 [facility] Monocytes/100 WBC Auto (Bld) on 10-01-2024 Monocytes/100 WBC (Bld) Automated monocyte % 1.7-12.0 [facility] Neutrophils Auto (Bld) [#/Vo l]on 10-01-2024 Neutrophils (Bld) [#/Vol] Neutrophils [#/volume] in Blood by Automated count 1.4-6.5 [facility] Neutrophils/100 WBC Auto (Bl d)on 10-01-2024 Neutrophils/100 WBC (Bld) Automated neutrophil % 43.0-75.0 [facility] No Panel Informationon 10-01 Troponin I High Sensitivity 6.2 pg/mL 4.0-76.1 [facility] Comment on above: CUT-OFF POINTS HAVE BEEN ESTABLISHED BASED ON THE FOURTHUNIVERSAL DEFINITION OF MYOCARDIAL INFARCTION. THE UPPERREFERENCE LIMIT (URL) OF TROPONIN, DEFINED THE 99THPERCENTILE OF cTnI DISTRIBUTION IN A REFERENCE POPULATION,HAS BEEN CONFIRMED THE DECISION THRESHOLD FOR MIDIAGNOSIS.99TH PERCENTILE = 76.2 PG/MLNOTE: HIGH-SENSITIVITY TROPONIN ASSAY IS NOT INTENDED TO BEUSED IN ISOLATION BUT SHOULD BE INTERPRETED IN CONJUNCTIONWITH OTHER DIAGNOSTIC AND CLINICAL INFORMATION. Eosinophils # (Auto) 0.2 10 3/uL 0.0-0.7 [facility] Immature Granulocyte # (Auto) 0.01 10 3/uL 0.00-0.03 [facility] Platelet mean volume Auto (B ld) [Entitic vol]on 10-01-2024 Platelet mean volume (Bld) [Entitic vol] Platelet mean volume [Entitic volume] in Blood by Automated count Low 9.5-13.5 [facility] Platelets Auto (Bld) [#/Vol] on 10-01-2024 Platelets (Bld) [#/Vol] Platelets [#/volume] in Blood by Automated count 150-450 [facility] RBC Auto (Bld) [#/Vol]on RBC (Bld) [#/Vol] Erythrocytes [#/volu me] in Blood by Automated count Low 4.70-6.10 [facility] Serum or plasma anion gap de terminationon 10-01-2024 Anion gap [Moles/Vol] Serum or plasma an ion gap determination [facility] Basophils Auto (Bld) [#/Vol] on 09-30-2024 Basophils (Bld) [#/Vol] Automated basophil count 0.0-0.1 [facility] Basophils/100 WBC Auto (Bld) on 09-30-2024 Basophils/100 WBC (Bld) Automated basophil % 0.2-2.0 [facility] Eosinophils/100 WBC Auto (Bl d)on 09-30-2024 Eosinophils/100 WBC (Bld) Automated eosinophil % 0.9-7.0 [facility] Erythrocyte distribution wid th Auto (RBC) [Ratio]on 09-30-2024 Erythrocyte distribution width (RBC) [Ratio] Erythrocyte distribution width [Ratio] by Automated count High 11.0-15.0 [facility] Estimated glomerular filtrat ion rate (GFR) non- Americanon 09-30-2024 GFR/1.73 sq M.predicted among non-blacks MDRD (S/P/Bld) [Vol rate/Area] Estimated glomerular filtration rate (GFR) non- >=60 mL/min/1.7 3m 2 [facility] Globulin Calc (S) [Mass/Vol] on 09-30-2024 Globulin (S) [Mass/Vol] Serum globulin measurement by calculation (mass/volume) [facility] Hematocrit Auto (Bld) [Volum e fraction]on 09-30-2024 Hematocrit (Bld) [Volume fraction] Hematocrit [Volume Fraction] of Blood by Automated count Low 42.0-54.0 [facility] Hemoglobin [Mass/volume] in Bloodon 09-30-2024 Hemoglobin (Bld) [Mass/Vol] Hemoglobin [Mass/volume] in Blood Low 14.0-18.0 [facility] Laboratory - Chemistry and C hemistry - challengeon 09-30-2024 Albumin [Mass/Vol] 3.3 g/dL Low 3.4-5.0 [facility] ALP [Catalytic activity/Vol] 72 U/L 46-116 [facility] ALT [Catalytic activity/Vol] 15 U/L Low 16-63 [facility] AST [Catalytic activity/Vol] 6 U/L Low 15-37 [facility] Bilirubin [Mass/Vol] 0.4 mg/dL 0.2-1.0 [facility] Calcium [Mass/Vol] 8.8 mg/dL 8.5-10.1 [facility] Chloride [Moles/Vol] 105 mmol/L 98-107 [facility] CO2 [Moles/Vol] 27.6 mmol/L 21.0-32.0 [facility] Creatinine [Mass/Vol] 0.66 mg/dL Low 0.70-1.30 [facility] GFR/1.73 sq M.predicted MDRD (S/P/Bld) [Vol rate/Area] mL/min/{1.73_m2} >=60 mL/min/1.7 3m 2 [facility] Glucose [Mass/Vol] 133 mg/dL High 74-106 [facility] Potassium [Moles/Vol] 4.2 mmol/L 3.5-5.1 [facility] Protein [Mass/Vol] 6.0 g/dL Low 6.4-8.2 [facility] Sodium [Moles/Vol] 141 mmol/L 136-145 [facility] Urea nitrogen [Mass/Vol] 22.0 mg/dL High 7.0-18.0 [facility] Urea nitrogen/Creatinine [Mass ratio] 33.3 mg/mg [facility] Laboratory - Hematology and Cell countson 09-30-2024 Immature granulocytes/100 WBC (Bld) 0.2 % 0.0-0.5 [facility] Leukocytes [#/volume] correc willian for nucleated erythrocytes in Blood by Automated counon 09-30-2024 WBC corrected for nucl RBC Auto (Bld) [#/Vol] Leukocytes [#/volume] corrected for nucleated erythrocytes in Blood by Automated coun 4.0-11.0 [facility] Lymphocytes Auto (Bld) [#/Vo l]on 09-30-2024 Lymphocytes (Bld) [#/Vol] Lymphocytes [#/volume] in Blood by Automated count 1.2-3.8 [facility] Lymphocytes/100 WBC Auto (Bl d)on 09-30-2024 Lymphocytes/100 WBC (Bld) Lymphocytes/100 leukocytes in Blood by Automated count 20.5-60.0 [facility] MCH Auto (RBC) [Entitic mass ]on 09-30-2024 MCH (RBC) [Entitic mass] MCH [Entitic mass] by Automated count 25.9-34.0 [facility] MCHC Auto (RBC) [Mass/Vol]on 09-30-2024 MCHC (RBC) [Mass/Vol] MCHC [Mass/volume] by Automated count 29.9-35.2 [facility] MCV Auto (RBC) [Entitic vol] on 09-30-2024 MCV (RBC) [Entitic vol] MCV [Entitic volume] by Automated count 80.0-94.0 [facility] Monocytes Auto (Bld) [#/Vol] on 09-30-2024 Monocytes (Bld) [#/Vol] Automated blood monocyte count 0.3-0.8 [facility] Monocytes/100 WBC Auto (Bld) on 09-30-2024 Monocytes/100 WBC (Bld) Automated monocyte % 1.7-12.0 [facility] Neutrophils Auto (Bld) [#/Vo l]on 09-30-2024 Neutrophils (Bld) [#/Vol] Neutrophils [#/volume] in Blood by Automated count 1.4-6.5 [facility] Neutrophils/100 WBC Auto (Bl d)on 09-30-2024 Neutrophils/100 WBC (Bld) Automated neutrophil % 43.0-75.0 [facility] No Panel Informationon 09-30 Eosinophils # (Auto) 0.1 10 3/uL 0.0-0.7 [facility] Immature Granulocyte # (Auto) 0.01 10 3/uL 0.00-0.03 [facility] Platelet mean volume Auto (B ld) [Entitic vol]on 09-30-2024 Platelet mean volume (Bld) [Entitic vol] Platelet mean volume [Entitic volume] in Blood by Automated count Low 9.5-13.5 [facility] Platelets Auto (Bld) [#/Vol] on 09-30-2024 Platelets (Bld) [#/Vol] Platelets [#/volume] in Blood by Automated count 150-450 [facility] RBC Auto (Bld) [#/Vol]on RBC (Bld) [#/Vol] Erythrocytes [#/volu me] in Blood by Automated count Low 4.70-6.10 [facility] Serum or plasma albumin/glob ulin mass ratioon 09-30-2024 Albumin/Globulin [Mass ratio] Serum or plasma albumin/globulin mass ratio [facility] Serum or plasma anion gap de terminationon 09-30-2024 Anion gap [Moles/Vol] Serum or plasma an ion gap determination [facility] Basophils Auto (Bld) [#/Vol] on 09-29-2024 Basophils (Bld) [#/Vol] Automated basophil count 0.0-0.1 [facility] Basophils/100 WBC Auto (Bld) on 09-29-2024 Basophils/100 WBC (Bld) Automated basophil % 0.2-2.0 [facility] Eosinophils/100 WBC Auto (Bl d)on 09-29-2024 Eosinophils/100 WBC (Bld) Automated eosinophil % 0.9-7.0 [facility] Erythrocyte distribution wid th Auto (RBC) [Ratio]on 09-29-2024 Erythrocyte distribution width (RBC) [Ratio] Erythrocyte distribution width [Ratio] by Automated count High 11.0-15.0 [facility] Estimated glomerular filtrat ion rate (GFR) non- Americanon 09-29-2024 GFR/1.73 sq M.predicted among non-blacks MDRD (S/P/Bld) [Vol rate/Area] Estimated glomerular filtration rate (GFR) non- >=60 mL/min/1.7 3m 2 [facility] Globulin Calc (S) [Mass/Vol] on 09-29-2024 Globulin (S) [Mass/Vol] Serum globulin measurement by calculation (mass/volume) [facility] Hematocrit Auto (Bld) [Volum e fraction]on 09-29-2024 Hematocrit (Bld) [Volume fraction] Hematocrit [Volume Fraction] of Blood by Automated count Low 42.0-54.0 [facility] Hemoglobin [Mass/volume] in Bloodon 09-29-2024 Hemoglobin (Bld) [Mass/Vol] Hemoglobin [Mass/volume] in Blood Low 14.0-18.0 [facility] INR in Platelet poor plasma by Coagulation assayon 09-29-2024 INR Coag (PPP) [Relative time] INR in Platelet poor plasma by Coagulation assay [facility] Comment on above: DESIRED INR:2.0-3.0 CONDITIONS NOT LISTED BELOW2.5-3.5 FOR PROSTHETIC HEART VALVE REPLACEMENT2.5-3.5 [facility]ROMBOSIS Laboratory - Chemistry and C hemistry - challengeon 09-29-2024 Albumin [Mass/Vol] 3.6 g/dL 3.4-5.0 [facility] ALP [Catalytic activity/Vol] 74 U/L 46-116 [facility] ALT [Catalytic activity/Vol] 18 U/L 16-63 [facility] AST [Catalytic activity/Vol] 9 U/L Low 15-37 [facility] Bilirubin [Mass/Vol] 0.7 mg/dL 0.2-1.0 [facility] Calcium [Mass/Vol] 9.6 mg/dL 8.5-10.1 [facility] Chloride [Moles/Vol] 101 mmol/L 98-107 [facility] CO2 [Moles/Vol] 29.6 mmol/L 21.0-32.0 [facility] Creatinine [Mass/Vol] 1.01 mg/dL 0.70-1.30 [facility] GFR/1.73 sq M.predicted MDRD (S/P/Bld) [Vol rate/Area] mL/min/{1.73_m2} >=60 mL/min/1.7 3m 2 [facility] Glucose [Mass/Vol] 160 mg/dL High 74-106 [facility] Potassium [Moles/Vol] 4.3 mmol/L 3.5-5.1 [facility] Protein [Mass/Vol] 6.7 g/dL 6.4-8.2 [facility] Sodium [Moles/Vol] 138 mmol/L 136-145 [facility] Urea nitrogen [Mass/Vol] 23.0 mg/dL High 7.0-18.0 [facility] Urea nitrogen/Creatinine [Mass ratio] 22.8 mg/mg [facility] Laboratory - Hematology and Cell countson 09-29-2024 Immature granulocytes/100 WBC (Bld) 0.3 % 0.0-0.5 [facility] Leukocytes [#/volume] correc willian for nucleated erythrocytes in Blood by Automated counon 09-29-2024 WBC corrected for nucl RBC Auto (Bld) [#/Vol] Leukocytes [#/volume] corrected for nucleated erythrocytes in Blood by Automated coun 4.0-11.0 [facility] Lymphocytes Auto (Bld) [#/Vo l]on 09-29-2024 Lymphocytes (Bld) [#/Vol] Lymphocytes [#/volume] in Blood by Automated count 1.2-3.8 [facility] Lymphocytes/100 WBC Auto (Bl d)on 09-29-2024 Lymphocytes/100 WBC (Bld) Lymphocytes/100 leukocytes in Blood by Automated count Low 20.5-60.0 [facility] MCH Auto (RBC) [Entitic mass ]on 09-29-2024 MCH (RBC) [Entitic mass] MCH [Entitic mass] by Automated count 25.9-34.0 [facility] MCHC Auto (RBC) [Mass/Vol]on 09-29-2024 MCHC (RBC) [Mass/Vol] MCHC [Mass/volume] by Automated count 29.9-35.2 [facility] MCV Auto (RBC) [Entitic vol] on 09-29-2024 MCV (RBC) [Entitic vol] MCV [Entitic volume] by Automated count 80.0-94.0 [facility] Monocytes Auto (Bld) [#/Vol] on 09-29-2024 Monocytes (Bld) [#/Vol] Automated blood monocyte count 0.3-0.8 [facility] Monocytes/100 WBC Auto (Bld) on 09-29-2024 Monocytes/100 WBC (Bld) Automated monocyte % 1.7-12.0 [facility] Neutrophils Auto (Bld) [#/Vo l]on 09-29-2024 Neutrophils (Bld) [#/Vol] Neutrophils [#/volume] in Blood by Automated count 1.4-6.5 [facility] Neutrophils/100 WBC Auto (Bl d)on 09-29-2024 Neutrophils/100 WBC (Bld) Automated neutrophil % 43.0-75.0 [facility] No Panel Informationon 09-29 Eosinophils # (Auto) 0.2 10 3/uL 0.0-0.7 [facility] Immature Granulocyte # (Auto) 0.02 10 3/uL 0.00-0.03 [facility] Platelet mean volume Auto (B ld) [Entitic vol]on 09-29-2024 Platelet mean volume (Bld) [Entitic vol] Platelet mean volume [Entitic volume] in Blood by Automated count Low 9.5-13.5 [facility] Platelets Auto (Bld) [#/Vol] on 09-29-2024 Platelets (Bld) [#/Vol] Platelets [#/volume] in Blood by Automated count 150-450 [facility] Prothrombin time (PT)on PT Coag (PPP) [Time] Prothrombin time (PT) 9.0- 11.6 [facility] RBC Auto (Bld) [#/Vol]on RBC (Bld) [#/Vol] Erythrocytes [#/volu me] in Blood by Automated count Low 4.70-6.10 [facility] Serum or plasma albumin/glob ulin mass ratioon 09-29-2024 Albumin/Globulin [Mass ratio] Serum or plasma albumin/globulin mass ratio [facility] Serum or plasma anion gap de terminationon 09-29-2024 Anion gap [Moles/Vol] Serum or plasma an ion gap determination [facility] Office Visiton 09-09-2024 Follow-up visit [id number] Vashti Massey 1955 M Date Provider Department Center 09/09/2024 [id number] ZUÑIGA [facility] Family History Problem Relation Age of Onset No Known Problems Mother No Known Problems Father Heart attack Paternal Grandmother Family Status - Relation Status Age at Mother Father Paternal Grandmother Level of Service:17857 MD OFFICE/OUTPATIENT NEW MODERATE MDM 45 MINUTES Normal [facility] BASIC METABOLIC PANLon 06-11 Anion gap [Moles/Vol] 9 mmol/L Normal 5-15 [facility] Comment on above: Performed By: #### C BCA, CMP #### [facility] ([id number]) [address], [address] [place] [address] Calcium [Mass/Vol] 9.2 mg/dL Normal 8.5-10.5 [facility] Comment on above: Performed By: #### C BCA, CMP #### [facility] ([id number]) [address], [address] [place] [address] Chloride [Moles/Vol] 97 mmol/L Low 98-109 [facility] Comment on above: Performed By: #### C BCA, CMP #### [facility] ([id number]) [address], [address] [place] [address] CO2 [Moles/Vol] 29 mmol/L Normal 22-32 [facility] Comment on above: Performed By: #### C BCA, CMP #### [facility] ([id number]) [address] [address] Creatinine [Mass/Vol] 0.54 mg/dL Low 0.60-1.30 [facility] Comment on above: Result Comment: METH OD TRACEABLE TO IDMS STANDARD Performed By: #### C BCA, CMP #### [facility] ([id number]) [address] [address] eGFR (CKD-EPI) NON-RACE DEPENDENT >90 Normal >59 [facility] Comment on above: Result Comment: Reported eGFR is based on the CKD-EPI 2020 equation that does not use a race coefficient. Performed By: #### C BCA, CMP #### [facility] ([id number]) [address] [address] Glucose [Mass/Vol] 158 mg/dL High 65-99 [facility] Comment on above: Performed By: #### C BCA, CMP #### [facility] ([id number]) [address] [address] Potassium [Moles/Vol] 4.2 mmol/L Normal 3.5-5.0 [facility] Comment on above: Performed By: #### C BCA, CMP #### [facility] ([id number]) [address] [address] Sodium [Moles/Vol] 135 mmol/L Normal 134-146 [facility] Comment on above: Performed By: #### C BCA, CMP #### [facility] ([id number]) [address] [address] Urea nitrogen [Mass/Vol] 20 mg/dL Normal 5-27 [facility] Comment on above: Performed By: #### C BCA, CMP #### [facility] ([id number]) [address], [address] [place] [address] CBC AND AUTO DIFFon 06-11-20 24 ABSOLUTE BASOPHIL 0.1 X10E9/L Normal 0.0-0.2 [facility] Comment on above: Performed By: #### C BCA, CMP #### [facility] ([id number]) [address], [address] [place] [address] ABSOLUTE NEUTROPHIL 2.8 X10E9/L Normal 1.5-6.6 [facility] Comment on above: Performed By: #### C ZACHARY, CMP #### [facility] ([id number]) [address], [address] [place] [address] Basophils/100 WBC (Bld) 1.2 % Normal [facility] Comment on above: Performed By: #### C ZACHARY, CMP #### [facility] ([id number]) [address], [address] [place] [address] Eosinophils (Bld) [#/Vol] 0.1 10*3/uL Normal 0.0-0.4 [facility] Comment on above: Performed By: #### C ZACHARY, CMP #### [facility] ([id number]) [address], [address] [place] [address] Eosinophils/100 WBC (Bld) 2.1 % Normal [facility] Comment on above: Performed By: #### C BCA, CMP #### [facility] ([id number]) [address], [address] [place] [address] Erythrocyte distribution width (RBC) [Ratio] 15.6 % High 11.5-15.0 [facility] Comment on above: Performed By: #### C BCA, CMP #### [facility] ([id number]) [address], [address] [place] [address] Hematocrit (Bld) [Volume fraction] 34.3 % Low 39-49 [facility] Comment on above: Performed By: #### C BCA, CMP #### [facility] ([id number]) [address], [address] [place] [address] Hemoglobin (Bld) [Mass/Vol] 11.6 g/dL Low 13.0-17.0 [facility] Comment on above: Performed By: #### C BCA, CMP #### [facility] ([id number]) [address] [place] [address] Lymphocytes (Bld) [#/Vol] 1.0 10*3/uL Normal 1.0-3.5 [facility] Comment on above: Performed By: #### C BCA, CMP #### [facility] ([id number]) [address], [address] [place] [address] Lymphocytes/100 WBC (Bld) 23.1 % Normal [facility] Comment on above: Performed By: #### C BCA, CMP #### [facility] ([id number]) [address], [address] [place] [address] MCH (RBC) [Entitic mass] 27.1 pg Normal 27-34 [facility] Comment on above: Performed By: #### C BCA, CMP #### [facility] ([id number]) [address], [address] [place] [address] MCHC (RBC) [Mass/Vol] 33.9 g/dL Normal 32-36 [facility] Comment on above: Performed By: #### C BCA, CMP #### [facility] ([id number]) [address], [address] [place] [address] MCV (RBC) [Entitic vol] 80 fL Normal 80-100 [facility] Comment on above: Performed By: #### C BCA, CMP #### [facility] ([id number]) [address], [address] [place] [address] Monocytes (Bld) [#/Vol] 0.4 10*3/uL Normal 0-0.9 [facility] Comment on above: Performed By: #### C BCA, CMP #### [facility] ([id number]) [address], [address] [place] [address] Monocytes/100 WBC (Bld) 9.6 % Normal [facility] Comment on above: Performed By: #### C BCA, CMP #### [facility] ([id number]) [address] [place] [address] Neutrophils/100 WBC (Bld) 64.0 % Normal [facility] Comment on above: Performed By: #### C BCA, CMP #### [facility] ([id number]) [address] [place] [address] Platelet mean volume (Bld) [Entitic vol] 7.0 fL Normal 7-12 [facility] Comment on above: Performed By: #### C ZACHARY, CMP #### [facility] ([id number]) [address] [place] [address] Platelets (Bld) [#/Vol] 284 10*3/uL Normal 150-450 [facility] Comment on above: Performed By: #### C BCA, CMP #### [facility] ([id number]) [address] [place] [address] RBC COUNT 4.29 X10E12/L Normal 4.10-5.70 [facility] Comment on above: Performed By: #### C BCA, CMP #### [facility] ([id number]) [address], [address] [place] [address] WBC (Bld) [#/Vol] 4.4 10*3/uL Normal 4.0-11.0 [facility] Comment on above: Performed By: #### C BCA, CMP #### [facility] ([id number]) [address] [place] [address] Glucose Glucometer (BldC) [M ass/Vol]on 06-11-2024 Glucose [Mass/Vol] 220 mg/dL High 65-99 [facility] Glucose [Mass/Vol] 210 mg/dL High 65-99 [facility] Glucose [Mass/Vol] 245 mg/dL High 65-99 [facility] Glucose [Mass/Vol] 164 mg/dL High 65-99 [facility] BASIC METABOLIC PANLon 06-10 Anion gap [Moles/Vol] 10 mmol/L Normal 5-15 [facility] Comment on above: Performed By: #### C BCA, CMP #### [facility] ([id number]) [address] [place] [address] Calcium [Mass/Vol] 9.3 mg/dL Normal 8.5-10.5 [facility] Comment on above: Performed By: #### C BCA, CMP #### [facility] ([id number]) [address], [address] [place] [address] Chloride [Moles/Vol] 96 mmol/L Low 98-109 [facility] Comment on above: Performed By: #### C BCA, CMP #### [facility] ([id number]) [address], [address] [place] [address] CO2 [Moles/Vol] 28 mmol/L Normal 22-32 [facility] Comment on above: Performed By: #### C BCA, CMP #### [facility] ([id number]) [address], [address] [place] [address] Creatinine [Mass/Vol] 0.58 mg/dL Low 0.60-1.30 [facility] Comment on above: Result Comment: METH OD TRACEABLE TO IDMS STANDARD Performed By: #### C BCA, CMP #### [facility] ([id number]) [address] [address] [place] [address] eGFR (CKD-EPI) NON-RACE DEPENDENT >90 Normal >59 [facility] Comment on above: Result Comment: Reported eGFR is based on the CKD-EPI 2020 equation that does not use a race coefficient. Performed By: #### C BCA, CMP #### [facility] ([id number]) [address] [address] [place] [address] Glucose [Mass/Vol] 173 mg/dL High 65-99 [facility] Comment on above: Performed By: #### C BCA, CMP #### [facility] ([id number]) [address] [address] Potassium [Moles/Vol] 4.1 mmol/L Normal 3.5-5.0 [facility] Comment on above: Performed By: #### C BCA, CMP #### [facility] ([id number]) [address] [address] Sodium [Moles/Vol] 134 mmol/L Normal 134-146 [facility] Comment on above: Performed By: #### C BCA, CMP #### [facility] ([id number]) [address] [address] Urea nitrogen [Mass/Vol] 18 mg/dL Normal 5-27 [facility] Comment on above: Performed By: #### C BCA, CMP #### [facility] ([id number]) [address] [address] CBC AND AUTO DIFFon 08-15-20 24 ABSOLUTE BASOPHIL 0.0 X10E9/L Normal 0.0-0.2 [facility] Comment on above: Performed By: #### C BCA, CMP #### [facility] ([id number]) [address] [address] [place] [address] ABSOLUTE NEUTROPHIL 2.6 X10E9/L Normal 1.5-6.6 [facility] Comment on above: Performed By: #### C BCA, CMP #### [facility] ([id number]) [address] [place] [address] Basophils/100 WBC (Bld) 1.0 % Normal [facility] Comment on above: Performed By: #### C BCA, CMP #### [facility] ([id number]) [address] [place] [address] Eosinophils (Bld) [#/Vol] 0.1 10*3/uL Normal 0.0-0.4 [facility] Comment on above: Performed By: #### C BCA, CMP #### [facility] ([id number]) [address], [address] [place] [address] Eosinophils/100 WBC (Bld) 1.9 % Normal [facility] Comment on above: Performed By: #### C BCA, CMP #### [facility] ([id number]) [address] [address] [place] [address] Erythrocyte distribution width (RBC) [Ratio] 15.8 % High 11.5-15.0 [facility] Comment on above: Performed By: #### C BCA, CMP #### [facility] ([id number]) [address] [place] [address] Hematocrit (Bld) [Volume fraction] 34.3 % Low 39-49 [facility] Comment on above: Performed By: #### C BCA, CMP #### [facility] ([id number]) [address] [address] [place] [address] Hemoglobin (Bld) [Mass/Vol] 11.3 g/dL Low 13.0-17.0 [facility] Comment on above: Performed By: #### C BCA, CMP #### [facility] ([id number]) [address] [address] [place] [address] Lymphocytes (Bld) [#/Vol] 1.1 10*3/uL Normal 1.0-3.5 [facility] Comment on above: Performed By: #### C BCA, CMP #### [facility] ([id number]) [address], [address] [place] [address] Lymphocytes/100 WBC (Bld) 26.6 % Normal [facility] Comment on above: Performed By: #### C BCA, CMP #### [facility] ([id number]) [address], [facility] [address] [place] [address] MCH (RBC) [Entitic mass] 26.4 pg Low 27-34 [facility] Comment on above: Performed By: #### C ZACHARY, CMP #### [facility] ([id number]) [address], [address] [place] [address] MCHC (RBC) [Mass/Vol] 32.8 g/dL Normal 32-36 [facility] Comment on above: Performed By: #### C ZACHARY, CMP #### [facility] ([id number]) [address], [address] [place] [address] MCV (RBC) [Entitic vol] 80 fL Normal 80-100 [facility] Comment on above: Performed By: #### C BCA, CMP #### [facility] ([id number]) [address] [place] [address] Monocytes (Bld) [#/Vol] 0.4 10*3/uL Normal 0-0.9 [facility] Comment on above: Performed By: #### C BCA, CMP #### [facility] ([id number]) [address], [address] [place] [address] Monocytes/100 WBC (Bld) 8.2 % Normal [facility] Comment on above: Performed By: #### C BCA, CMP #### [facility] ([id number]) [address] [place] [address] Neutrophils/100 WBC (Bld) 62.3 % Normal [facility] Comment on above: Performed By: #### C ZACHARY, CMP #### [facility] ([id number]) [address] [place] [address] Platelet mean volume (Bld) [Entitic vol] 7.0 fL Normal 7-12 [facility] Comment on above: Performed By: #### C ZACHARY, CMP #### [facility] ([id number]) [address] [place] [address] Platelets (Bld) [#/Vol] 290 10*3/uL Normal 150-450 [facility] Comment on above: Performed By: #### Thais SHARMA, CMP #### [facility] ([id number]) [address] [place] [address] RBC COUNT 4.26 X10E12/L Normal 4.10-5.70 [facility] Comment on above: Performed By: #### Thais SHARMA, CMP #### [facility] ([id number]) [address] [place] [address] WBC (Bld) [#/Vol] 4.3 10*3/uL Normal 4.0-11.0 [facility] Comment on above: Performed By: #### Thais SHARMA, CMP #### [facility] ([id number]) [address], [address] [place] [address] Glucose Glucometer (dC) [M ass/Vol]on 06-10-2024 Glucose [Mass/Vol] 258 mg/dL High 65-99 [facility] Glucose [Mass/Vol] 272 mg/dL High 65-99 [facility] Glucose [Mass/Vol] 275 mg/dL High 65-99 [facility] Glucose [Mass/Vol] 175 mg/dL High 65-99 [facility] Glucose [Mass/Vol] 168 mg/dL High 65-99 [facility] Glucose [Mass/Vol] 181 mg/dL High 65-99 [facility] BASIC METABOLIC PANLon 06-09 Anion gap [Moles/Vol] 8 mmol/L Normal 5-15 [facility] Comment on above: Performed By: #### C BCA, CMP #### [facility] ([id number]) [address], [address] [place] [address] Calcium [Mass/Vol] 8.9 mg/dL Normal 8.5-10.5 [facility] Comment on above: Performed By: #### C BCA, CMP #### [facility] ([id number]) [address], [address] [place] [address] Chloride [Moles/Vol] 98 mmol/L Normal 98-109 [facility] Comment on above: Performed By: #### C BCA, CMP #### [facility] ([id number]) [address], [address] [place] [address] CO2 [Moles/Vol] 29 mmol/L Normal 22-32 [facility] Comment on above: Performed By: #### C BCA, CMP #### [facility] ([id number]) [address], [address] [place] [address] Creatinine [Mass/Vol] 0.51 mg/dL Low 0.60-1.30 [facility] Comment on above: Result Comment: METH OD TRACEABLE TO IDMS STANDARD Performed By: #### C BCA, CMP #### [facility] ([id number]) [address], [address] [place] [address] eGFR (CKD-EPI) NON-RACE DEPENDENT >90 Normal >59 [facility] Comment on above: Result Comment: Reported eGFR is based on the CKD-EPI 2020 equation that does not use a race coefficient. Performed By: #### C BCA, CMP #### [facility] ([id number]) [address], [address] [place] [address] Glucose [Mass/Vol] 174 mg/dL High 65-99 [facility] Comment on above: Performed By: #### C BCA, CMP #### [facility] ([id number]) [address], [address] [place] [address] Potassium [Moles/Vol] 4.2 mmol/L Normal 3.5-5.0 [facility] Comment on above: Performed By: #### C BCA, CMP #### [facility] ([id number]) [address] [place] [address] Sodium [Moles/Vol] 135 mmol/L Normal 134-146 [facility] Comment on above: Performed By: #### C BCA, CMP #### [facility] ([id number]) [address], [address] [place] [address] Urea nitrogen [Mass/Vol] 13 mg/dL Normal 5-27 [facility] Comment on above: Performed By: #### C BCA, CMP #### [facility] ([id number]) [address] [place] [address] CBC AND AUTO DIFFon 06-09-20 24 ABSOLUTE BASOPHIL 0.1 X10E9/L Normal 0.0-0.2 [facility] Comment on above: Performed By: #### C BCA, CMP #### [facility] ([id number]) [address], [address] [place] [address] ABSOLUTE NEUTROPHIL 2.4 X10E9/L Normal 1.5-6.6 [facility] Comment on above: Performed By: #### C BCA, CMP #### [facility] ([id number]) [address], [address] [place] [address] Basophils/100 WBC (Bld) 1.4 % Normal [facility] Comment on above: Performed By: #### C BCA, CMP #### [facility] ([id number]) [address] [address] [place] [address] Eosinophils (Bld) [#/Vol] 0.1 10*3/uL Normal 0.0-0.4 [facility] Comment on above: Performed By: #### C BCA, CMP #### [facility] ([id number]) [address] [address] [place] [address] Eosinophils/100 WBC (Bld) 3.1 % Normal [facility] Comment on above: Performed By: #### C ZACHARY, CMP #### [facility] ([id number]) [address] [address] [place] [address] Erythrocyte distribution width (RBC) [Ratio] 16.2 % High 11.5-15.0 [facility] Comment on above: Performed By: #### C ZACHARY, CMP #### [facility] ([id number]) [address] [address] [place] [address] Hematocrit (Bld) [Volume fraction] 33.5 % Low 39-49 [facility] Comment on above: Performed By: #### C ZACHARY, CMP #### [facility] ([id number]) [address] [address] [place] [address] Hemoglobin (Bld) [Mass/Vol] 11.3 g/dL Low 13.0-17.0 [facility] Comment on above: Performed By: #### C BCA, CMP #### [facility] ([id number]) [address] [address] Lymphocytes (Bld) [#/Vol] 1.2 10*3/uL Normal 1.0-3.5 [facility] Comment on above: Performed By: #### C BCA, CMP #### [facility] ([id number]) [address] [place] [address] Lymphocytes/100 WBC (Bld) 28.7 % Normal [facility] Comment on above: Performed By: #### C BCA, CMP #### [facility] ([id number]) [address] [place] [address] MCH (RBC) [Entitic mass] 27.0 pg Normal 27-34 [facility] Comment on above: Performed By: #### C BCA, CMP #### [facility] ([id number]) [address] [place] [address] MCHC (RBC) [Mass/Vol] 33.6 g/dL Normal 32-36 [facility] Comment on above: Performed By: #### C BCA, CMP #### [facility] ([id number]) [address] [place] [address] MCV (RBC) [Entitic vol] 80 fL Normal 80-100 [facility] Comment on above: Performed By: #### C BCA, CMP #### [facility] ([id number]) [address] [place] [address] Monocytes (Bld) [#/Vol] 0.3 10*3/uL Normal 0-0.9 [facility] Comment on above: Performed By: #### C BCA, CMP #### [facility] ([id number]) [address] [place] [address] Monocytes/100 WBC (Bld) 7.6 % Normal [facility] Comment on above: Performed By: #### C BCA, CMP #### [facility] ([id number]) [address], [address] [place] [address] Neutrophils/100 WBC (Bld) 59.2 % Normal [facility] Comment on above: Performed By: #### C BCA, CMP #### [facility] ([id number]) [address], [address] [place] [address] Platelet mean volume (Bld) [Entitic vol] 6.9 fL Low 7-12 [facility] Comment on above: Performed By: #### C BCA, CMP #### [facility] ([id number]) [address], [address] [place] [address] Platelets (Bld) [#/Vol] 280 10*3/uL Normal 150-450 [facility] Comment on above: Performed By: #### C ZACHARY, CMP #### [facility] ([id number]) [address], [address] [place] [address] RBC COUNT 4.17 X10E12/L Normal 4.10-5.70 [facility] Comment on above: Performed By: #### Thais SHARMA, CMP #### [facility] ([id number]) [address], [address] [place] [address] WBC (Bld) [#/Vol] 4.1 10*3/uL Normal 4.0-11.0 [facility] Comment on above: Performed By: #### C ZACHARY, CMP #### [facility] ([id number]) [address] [place] [address] Glucose Glucometer (BldC) [M ass/Vol]on 06-09-2024 Glucose [Mass/Vol] 215 mg/dL High 65-99 [facility] Glucose [Mass/Vol] 217 mg/dL High 65-99 [facility] BASIC METABOLIC PANLon 06-08 Anion gap [Moles/Vol] 9 mmol/L Normal 5-15 [facility] Comment on above: Performed By: #### C BCA, CMP #### [facility] ([id number]) [address] [place] [address] Calcium [Mass/Vol] 8.7 mg/dL Normal 8.5-10.5 [facility] Comment on above: Performed By: #### C BCA, CMP #### [facility] ([id number]) [address] [place] [address] Chloride [Moles/Vol] 99 mmol/L Normal 98-109 [facility] Comment on above: Performed By: #### C BCA, CMP #### [facility] ([id number]) [address] [place] [address] CO2 [Moles/Vol] 27 mmol/L Normal 22-32 [facility] Comment on above: Performed By: #### C BCA, CMP #### [facility] ([id number]) [address] [place] [address] Creatinine [Mass/Vol] 0.64 mg/dL Normal 0.60-1.30 [facility] Comment on above: Result Comment: METH OD TRACEABLE TO IDMS STANDARD Performed By: #### C BCA, CMP #### [facility] ([id number]) [address] [place] [address] eGFR (CKD-EPI) NON-RACE DEPENDENT >90 Normal >59 [facility] Comment on above: Result Comment: Reported eGFR is based on the CKD-EPI 2020 equation that does not use a race coefficient. Performed By: #### C BCA, CMP #### [facility] ([id number]) [address] [place] [address] Glucose [Mass/Vol] 166 mg/dL High 65-99 [facility] Comment on above: Performed By: #### C BCA, CMP #### [facility] ([id number]) [address] [place] [address] Potassium [Moles/Vol] 4.2 mmol/L Normal 3.5-5.0 [facility] Comment on above: Performed By: #### C BCA, CMP #### [facility] ([id number]) [address] [place] [address] Sodium [Moles/Vol] 135 mmol/L Normal 134-146 [facility] Comment on above: Performed By: #### C ZACHARY, CMP #### [facility] ([id number]) [address] [place] [address] Urea nitrogen [Mass/Vol] 16 mg/dL Normal 5-27 [facility] Comment on above: Performed By: #### C ZACHARY, CMP #### [facility] ([id number]) [address] [place] [address] CBC AND AUTO DIFFon 06-08-20 24 ABSOLUTE BASOPHIL 0.1 X10E9/L Normal 0.0-0.2 [facility] Comment on above: Performed By: #### C ZACHARY, CMP #### [facility] ([id number]) [address] [place] [address] ABSOLUTE NEUTROPHIL 3.8 X10E9/L Normal 1.5-6.6 [facility] Comment on above: Performed By: #### C ZACHARY, CMP #### [facility] ([id number]) [address] [place] [address] Basophils/100 WBC (Bld) 1.1 % Normal [facility] Comment on above: Performed By: #### C ZACHARY, CMP #### [facility] ([id number]) [address] [place] [address] Eosinophils (Bld) [#/Vol] 0.1 10*3/uL Normal 0.0-0.4 [facility] Comment on above: Performed By: #### C BCA, CMP #### [facility] ([id number]) [address] [place] [address] Eosinophils/100 WBC (Bld) 1.6 % Normal [facility] Comment on above: Performed By: #### C BCA, CMP #### [facility] ([id number]) [address] [place] [address] Erythrocyte distribution width (RBC) [Ratio] 15.4 % High 11.5-15.0 [facility] Comment on above: Performed By: #### C BCA, CMP #### [facility] ([id number]) [address] [place] [address] Hematocrit (Bld) [Volume fraction] 32.3 % Low 39-49 [facility] Comment on above: Performed By: #### C BCA, CMP #### [facility] ([id number]) [address] [place] [address] Hemoglobin (Bld) [Mass/Vol] 10.8 g/dL Low 13.0-17.0 [facility] Comment on above: Performed By: #### C BCA, CMP #### [facility] ([id number]) [address] [place] [address] Lymphocytes (Bld) [#/Vol] 1.2 10*3/uL Normal 1.0-3.5 [facility] Comment on above: Performed By: #### C BCA, CMP #### [facility] ([id number]) [address] [place] [address] Lymphocytes/100 WBC (Bld) 21.2 % Normal [facility] Comment on above: Performed By: #### C BCA, CMP #### [facility] ([id number]) [address] [place] [address] MCH (RBC) [Entitic mass] 26.9 pg Low 27-34 [facility] Comment on above: Performed By: #### C BCA, CMP #### [facility] ([id number]) [address] [place] [address] MCHC (RBC) [Mass/Vol] 33.3 g/dL Normal 32-36 [facility] Comment on above: Performed By: #### C ZACHARY, CMP #### [facility] ([id number]) [address] [place] [address] MCV (RBC) [Entitic vol] 81 fL Normal 80-100 [facility] Comment on above: Performed By: #### C ZACHARY, CMP #### [facility] ([id number]) [address] [place] [address] Monocytes (Bld) [#/Vol] 0.3 10*3/uL Normal 0-0.9 [facility] Comment on above: Performed By: #### C ZACHARY, CMP #### [facility] ([id number]) [address] [place] [address] Monocytes/100 WBC (Bld) 5.8 % Normal [facility] Comment on above: Performed By: #### C ZACHARY, CMP #### [facility] ([id number]) [address] [place] [address] Neutrophils/100 WBC (Bld) 70.3 % Normal [facility] Comment on above: Performed By: #### C ZACHARY, CMP #### [facility] ([id number]) [address] [place] [address] Platelet mean volume (Bld) [Entitic vol] 7.1 fL Normal 7-12 [facility] Comment on above: Performed By: #### C ZACHARY, CMP #### [facility] ([id number]) [address] [place] [address] Platelets (Bld) [#/Vol] 269 10*3/uL Normal 150-450 [facility] Comment on above: Performed By: #### C BCA, CMP #### [facility] ([id number]) [address] [place] [address] RBC COUNT 4.00 X10E12/L Low 4.10-5.70 [facility] Comment on above: Performed By: #### C BCA, CMP #### [facility] ([id number]) [address] [place] [address] WBC (Bld) [#/Vol] 5.5 10*3/uL Normal 4.0-11.0 [facility] Comment on above: Performed By: #### C BCA, CMP #### [facility] ([id number]) [address] [place] [address] Glucose Glucometer (BldC) [M ass/Vol]on 06-08-2024 Glucose [Mass/Vol] 175 mg/dL High 65-99 [facility] Glucose [Mass/Vol] 239 mg/dL High 65-99 [facility] BASIC METABOLIC PANLon 06-07 Anion gap [Moles/Vol] 9 mmol/L Normal 5-15 [facility] Comment on above: Performed By: #### C BCA, CMP #### [facility] ([id number]) [address] [place] [address] Calcium [Mass/Vol] 8.7 mg/dL Normal 8.5-10.5 [facility] Comment on above: Performed By: #### C BCA, CMP #### [facility] ([id number]) [address] [place] [address] Chloride [Moles/Vol] 100 mmol/L Normal 98-109 [facility] Comment on above: Performed By: #### C BCA, CMP #### [facility] ([id number]) [address] [place] [address] CO2 [Moles/Vol] 26 mmol/L Normal 22-32 [facility] Comment on above: Performed By: #### C BCA, CMP #### [facility] ([id number]) [address] [address] [place] [address] Creatinine [Mass/Vol] 0.63 mg/dL Normal 0.60-1.30 [facility] Comment on above: Result Comment: METH OD TRACEABLE TO IDMS STANDARD Performed By: #### C BCA, CMP #### [facility] ([id number]) [address] [place] [address] eGFR (CKD-EPI) NON-RACE DEPENDENT >90 Normal >59 [facility] Comment on above: Result Comment: Reported eGFR is based on the CKD-EPI 2020 equation that does not use a race coefficient. Performed By: #### C BCA, CMP #### [facility] ([id number]) [address] [address] [place] [address] Glucose [Mass/Vol] 161 mg/dL High 65-99 [facility] Comment on above: Performed By: #### C BCA, CMP #### [facility] ([id number]) [address] [address] [place] [address] Potassium [Moles/Vol] 4.2 mmol/L Normal 3.5-5.0 [facility] Comment on above: Performed By: #### C BCA, CMP #### [facility] ([id number]) [address] [address] [place] [address] Sodium [Moles/Vol] 135 mmol/L Normal 134-146 [facility] Comment on above: Performed By: #### C BCA, CMP #### [facility] ([id number]) [address] [address] Urea nitrogen [Mass/Vol] 15 mg/dL Normal 5-27 [facility] Comment on above: Performed By: #### C BCA, CMP #### [facility] ([id number]) [address] [address] [place] [address] CBC AND AUTO DIFFon 06-07-20 24 ABSOLUTE BASOPHIL 0.1 X10E9/L Normal 0.0-0.2 [facility] Comment on above: Performed By: #### C BCA, CMP #### [facility] ([id number]) [address] [place] [address] ABSOLUTE NEUTROPHIL 4.2 X10E9/L Normal 1.5-6.6 [facility] Comment on above: Performed By: #### C ZACHARY, CMP #### [facility] ([id number]) [address] [place] [address] Basophils/100 WBC (Bld) 1.0 % Normal [facility] Comment on above: Performed By: #### C ZACHARY, CMP #### [facility] ([id number]) [address] [place] [address] Eosinophils (Bld) [#/Vol] 0.1 10*3/uL Normal 0.0-0.4 [facility] Comment on above: Performed By: #### C ZACHARY, CMP #### [facility] ([id number]) [address] [place] [address] Eosinophils/100 WBC (Bld) 1.5 % Normal [facility] Comment on above: Performed By: #### C ZACHARY, CMP #### [facility] ([id number]) [address], [address] [place] [address] Erythrocyte distribution width (RBC) [Ratio] 15.7 % High 11.5-15.0 [facility] Comment on above: Performed By: #### C ZACHARY, CMP #### [facility] ([id number]) [address], [address] [place] [address] Hematocrit (Bld) [Volume fraction] 32.5 % Low 39-49 [facility] Comment on above: Performed By: #### C BCA, CMP #### [facility] ([id number]) [address], [address] [place] [address] Hemoglobin (Bld) [Mass/Vol] 10.8 g/dL Low 13.0-17.0 [facility] Comment on above: Performed By: #### C BCA, CMP #### [facility] ([id number]) [address], [address] [place] [address] Lymphocytes (Bld) [#/Vol] 1.2 10*3/uL Normal 1.0-3.5 [facility] Comment on above: Performed By: #### C BCA, CMP #### [facility] ([id number]) [address], [address] [place] [address] Lymphocytes/100 WBC (Bld) 19.6 % Normal [place] [facility] Comment on above: Performed By: #### C BCA, CMP #### [facility] ([id number]) [address] [place] [address] MCH (RBC) [Entitic mass] 26.8 pg Low 27-34 [facility] Comment on above: Performed By: #### C BCA, CMP #### [facility] ([id number]) [address], [address] [place] [address] MCHC (RBC) [Mass/Vol] 33.3 g/dL Normal 32-36 [facility] Comment on above: Performed By: #### C BCA, CMP #### [facility] ([id number]) [address], [address] [place] [address] MCV (RBC) [Entitic vol] 81 fL Normal 80-100 [facility] Comment on above: Performed By: #### C BCA, CMP #### [facility] ([id number]) [address], [address] [place] [address] Monocytes (Bld) [#/Vol] 0.4 10*3/uL Normal 0-0.9 [facility] Comment on above: Performed By: #### C ZACHARY, CMP #### [facility] ([id number]) [address], [address] [place] [address] Monocytes/100 WBC (Bld) 6.8 % Normal [facility] Comment on above: Performed By: #### C BCA, CMP #### [facility] ([id number]) [address], [address] [place] [address] Neutrophils/100 WBC (Bld) 71.1 % Normal [facility] Comment on above: Performed By: #### C ZACHARY, CMP #### [facility] ([id number]) [address], [address] [place] [address] Platelet mean volume (Bld) [Entitic vol] 7.0 fL Normal 7-12 [facility] Comment on above: Performed By: #### C ZACHARY, CMP #### [facility] ([id number]) [address], [address] [place] [address] Platelets (Bld) [#/Vol] 276 10*3/uL Normal 150-450 [facility] Comment on above: Performed By: #### C ZACHARY, CMP #### [facility] ([id number]) [address], [address] [place] [address] RBC COUNT 4.03 X10E12/L Low 4.10-5.70 [facility] Comment on above: Performed By: #### C BCA, CMP #### [facility] ([id number]) [address], [address] [place] [address] WBC (Bld) [#/Vol] 5.9 10*3/uL Normal 4.0-11.0 [facility] Comment on above: Performed By: #### C BCA, CMP #### [facility] ([id number]) [address], [address] [place] [address] Glucose Glucometer (BldC) [M ass/Vol]on 06-07-2024 Glucose [Mass/Vol] 187 mg/dL High 65-99 [facility] Glucose [Mass/Vol] 182 mg/dL High 65-99 [facility] Glucose [Mass/Vol] 233 mg/dL High 65-99 [facility] Glucose [Mass/Vol] 153 mg/dL High 65-99 [facility] BASIC METABOLIC PANLon 06-06 Anion gap [Moles/Vol] 10 mmol/L Normal 5-15 [facility] Comment on above: Performed By: #### C BCA, CMP #### [facility] ([id number]) [address], [address] [place] [address] Calcium [Mass/Vol] 8.5 mg/dL Normal 8.5-10.5 [facility] Comment on above: Performed By: #### C BCA, CMP #### [facility] ([id number]) [address], [address] [place] [address] Chloride [Moles/Vol] 103 mmol/L Normal 98-109 [facility] Comment on above: Performed By: #### C BCA, CMP #### [facility] ([id number]) [address], [address] [place] [address] CO2 [Moles/Vol] 22 mmol/L Normal 22-32 [facility] Comment on above: Performed By: #### C BCA, CMP #### [facility] ([id number]) [address], [address] [place] [address] Creatinine [Mass/Vol] 0.55 mg/dL Low 0.60-1.30 [facility] Comment on above: Result Comment: METH OD TRACEABLE TO IDMS STANDARD Performed By: #### C BCA, CMP #### [facility] ([id number]) [address] [address] eGFR (CKD-EPI) NON-RACE DEPENDENT >90 Normal >59 [facility] Comment on above: Result Comment: Reported eGFR is based on the CKD-EPI 2020 equation that does not use a race coefficient. Performed By: #### C BCA, CMP #### [facility] ([id number]) [address] [address] Glucose [Mass/Vol] 237 mg/dL High 65-99 [facility] Comment on above: Performed By: #### C BCA, CMP #### [facility] ([id number]) [address] [address] Potassium [Moles/Vol] 3.8 mmol/L Normal 3.5-5.0 [facility] Comment on above: Performed By: #### C BCA, CMP #### [facility] ([id number]) [address] [address] Sodium [Moles/Vol] 135 mmol/L Normal 134-146 [facility] Comment on above: Performed By: #### C BCA, CMP #### [facility] ([id number]) [address] [address] Urea nitrogen [Mass/Vol] 12 mg/dL Normal 5-27 [facility] Comment on above: Performed By: #### C BCA, CMP #### [facility] ([id number]) [address] [address] CBC AND AUTO DIFFon 06-06-20 24 ABSOLUTE BASOPHIL 0.1 X10E9/L Normal 0.0-0.2 [facility] Comment on above: Performed By: #### C BCA, CMP #### [facility] ([id number]) [address] [address] ABSOLUTE NEUTROPHIL 4.6 X10E9/L Normal 1.5-6.6 [facility] Comment on above: Performed By: #### C BCA, CMP #### [facility] ([id number]) [address], [address] [place] [address] Basophils/100 WBC (Bld) 1.0 % Normal [facility] Comment on above: Performed By: #### C BCA, CMP #### [facility] ([id number]) [address], [address] [place] [address] Eosinophils (Bld) [#/Vol] 0.1 10*3/uL Normal 0.0-0.4 [facility] Comment on above: Performed By: #### C BCA, CMP #### [facility] ([id number]) [address], [address] [place] [address] Eosinophils/100 WBC (Bld) 1.8 % Normal [facility] Comment on above: Performed By: #### C BCA, CMP #### [facility] ([id number]) [address], [address] [place] [address] Erythrocyte distribution width (RBC) [Ratio] 15.7 % High 11.5-15.0 [facility] Comment on above: Performed By: #### C BCA, CMP #### [facility] ([id number]) [address], [address] [place] [address] Hematocrit (Bld) [Volume fraction] 33.0 % Low 39-49 [facility] Comment on above: Performed By: #### C BCA, CMP #### [facility] ([id number]) [address], [address] [place] [address] Hemoglobin (Bld) [Mass/Vol] 11.1 g/dL Low 13.0-17.0 [facility] Comment on above: Performed By: #### C BCA, CMP #### [facility] ([id number]) [address], [address] [place] [address] Lymphocytes (Bld) [#/Vol] 1.1 10*3/uL Normal 1.0-3.5 [facility] Comment on above: Performed By: #### C ZACHARY, CMP #### [facility] ([id number]) [address], [facility] [address] [place] [address] Lymphocytes/100 WBC (Bld) 17.4 % Normal [facility] Comment on above: Performed By: #### C ZACHARY, CMP #### [facility] ([id number]) [address], [facility] [address] [place] [address] MCH (RBC) [Entitic mass] 27.5 pg Normal 27-34 [facility] Comment on above: Performed By: #### C ZACHARY, CMP #### [facility] ([id number]) [address], [facility] [address] [place] [address] MCHC (RBC) [Mass/Vol] 33.8 g/dL Normal 32-36 [facility] Comment on above: Performed By: #### C ZACHARY, CMP #### [facility] ([id number]) [address] [place] [address] MCV (RBC) [Entitic vol] 82 fL Normal 80-100 [facility] Comment on above: Performed By: #### C ZACHARY, CMP #### [facility] ([id number]) [address], [address] [place] [address] Monocytes (Bld) [#/Vol] 0.4 10*3/uL Normal 0-0.9 [facility] Comment on above: Performed By: #### C BCA, CMP #### [facility] ([id number]) [address] [place] [address] Monocytes/100 WBC (Bld) 5.8 % Normal [facility] Comment on above: Performed By: #### C BCA, CMP #### [facility] ([id number]) [address], [address] [place] [address] Neutrophils/100 WBC (Bld) 74.0 % Normal [facility] Comment on above: Performed By: #### C BCA, CMP #### [facility] ([id number]) [address], [address] [place] [address] Platelet mean volume (Bld) [Entitic vol] 6.9 fL Low 7-12 [facility] Comment on above: Performed By: #### C ZACHARY, CMP #### [facility] ([id number]) [address], [address] [place] [address] Platelets (Bld) [#/Vol] 272 10*3/uL Normal 150-450 [facility] Comment on above: Performed By: #### Thais SHARMA, CMP #### [facility] ([id number]) [address], [address] [place] [address] RBC COUNT 4.05 X10E12/L Low 4.10-5.70 [facility] Comment on above: Performed By: #### Thais SHARMA, CMP #### [facility] ([id number]) [address], [address] [place] [address] WBC (Bld) [#/Vol] 6.2 10*3/uL Normal 4.0-11.0 [facility] Comment on above: Performed By: #### Thais SHARMA, CMP #### [facility] ([id number]) [address], [address] [place] [address] CT BRAIN WO CONT[address] BRAIN WO [...] Beatty MD on 06/06/2024 5:57 AM Normal [facility] Glucose Glucometer (BldC) [M ass/Vol]on 06-06-2024 Glucose [Mass/Vol] 189 mg/dL High 65-99 [facility] Glucose [Mass/Vol] 140 mg/dL High 65-99 [facility] Glucose [Mass/Vol] 129 mg/dL High 65-99 [facility] Glucose [Mass/Vol] 231 mg/dL High 65-99 [facility] AMYLASEon 06-05-2024 Amylase [Catalytic activity/Vol] 30 U/L Normal 28-100 [facility] Comment on above: Performed By: #### C BCA, 16486-3, PINR, 14874-3, 1798-8, CMP, 3040-3, 5643-2 ####[facility] ([id number])[address], [address] [place] [address] CBC AND AUTO DIFFon 06-05-20 24 ABSOLUTE BASOPHIL 0.1 X10E9/L Normal 0.0-0.2 [facility] Comment on above: Performed By: #### C BCA, 45897-1, PINR, 65407-2, 1798-8, CMP, 3040-3, 5643-2 ####[facility] ([id number])[address], [address], [place] [address] ABSOLUTE NEUTROPHIL 4.6 X10E9/L Normal 1.5-6.6 [facility] Comment on above: Performed By: #### C BCA, 68181-3, PINR, 74829-2, 1798-8, CMP, 3040-3, 5643-2 ####[facility] ([id number])[address], [address], [place] [address] Basophils/100 WBC (Bld) 0.9 % Normal [facility] Comment on above: Performed By: #### C BCA, 21371-0, PINR, 12160-9, 1798-8, CMP, 3040-3, 5643-2 ####[facility] ([id number])[address] [address], [place] [address] Eosinophils (Bld) [#/Vol] 0.1 10*3/uL Normal 0.0-0.4 [facility] Comment on above: Performed By: #### C BCA, 97747-0, PINR, 98350-8, 1797-8, CMP, 3040-3, 5643-2 ####[facility] ([id number])[address] [address], [place] [address] Eosinophils/100 WBC (Bld) 2.0 % Normal [facility] Comment on above: Performed By: #### C BCA, 24882-0, PINR, 40486-4, 8-8, CMP, 3040-3, 5643-2 ####[facility] ([id number])[address] [address], [place] [address] Erythrocyte distribution width (RBC) [Ratio] 15.8 % High 11.5-15.0 [facility] Comment on above: Performed By: #### C BCA, 44907-6, PINR, 37689-3, 1798-8, CMP, 3040-3, 5643-2 ####[facility] ([id number])[address] [address], [place] [address] Hematocrit (Bld) [Volume fraction] 34.5 % Low 39-49 [facility] Comment on above: Performed By: #### C BCA, 43847-9, PINR, 78102-9, 1798-8, CMP, 3040-3, 5643-2 ####[facility] ([id number])[address], [place] [address] Hemoglobin (Bld) [Mass/Vol] 12.0 g/dL Low 13.0-17.0 [facility] Comment on above: Performed By: #### C BCA, 78234-0, PINR, 02545-2, 1798-8, CMP, 3040-3, 5643-2 ####[facility] ([id number])[address] [address] [place] [address] Lymphocytes (Bld) [#/Vol] 1.2 10*3/uL Normal 1.0-3.5 [facility] Comment on above: Performed By: #### C BCA, 43946-1, PINR, 80045-7, 1798-8, CMP, 3040-3, 5643-2 ####[facility] ([id number])[address] [address] [place] [address] Lymphocytes/100 WBC (Bld) 19.6 % Normal [facility] Comment on above: Performed By: #### C BCA, 37943-9, PINR, 45042-1, 1798-8, CMP, 3040-3, 5643-2 ####[facility] ([id number])[address] [address] [place] [address] MCH (RBC) [Entitic mass] 27.7 pg Normal 27-34 [facility] Comment on above: Performed By: #### C BCA, 96393-7, PINR, 85276-6, 1798-8, CMP, 3040-3, 5643-2 ####[facility] ([id number])[address] [place] [address] MCHC (RBC) [Mass/Vol] 34.9 g/dL Normal 32-36 [facility] Comment on above: Performed By: #### C BCA, 62207-5, PINR, 37998-5, 1798-8, CMP, 3040-3, 5643-2 ####[facility] ([id number])[address], [address] [place] [address] MCV (RBC) [Entitic vol] 79 fL Low 80-100 [facility] Comment on above: Performed By: #### C BCA, 55281-7, PINR, 46521-4, 1798-8, CMP, 3040-3, 5643-2 ####[facility] ([id number])[address] [address] Monocytes (Bld) [#/Vol] 0.4 10*3/uL Normal 0-0.9 [facility] Comment on above: Performed By: #### C BCA, 92517-2, PINR, 22250-0, 1798-8, CMP, 3040-3, 5643-2 ####[facility] ([id number])[address] [address] Monocytes/100 WBC (Bld) 5.6 % Normal [facility] Comment on above: Performed By: #### C BCA, 97400-0, PINR, 85375-3, 1798-8, CMP, 3040-3, 5643-2 ####[facility] ([id number])[address] [address] [place] [address] Neutrophils/100 WBC (Bld) 71.9 % Normal [facility] Comment on above: Performed By: #### C BCA, 12656-6, PINR, 84940-8, 1798-8, CMP, 3040-3, 5643-2 ####[facility] ([id number])[address], [place] [address] Platelet mean volume (Bld) [Entitic vol] 6.8 fL Low 7-12 [facility] Comment on above: Performed By: #### C BCA, 35117-9, PINR, 89367-2, 1798-8, CMP, 3040-3, 5643-2 ####[facility] ([id number])[address], [address] [place] [address] Platelets (Bld) [#/Vol] 299 10*3/uL Normal 150-450 [facility] Comment on above: Performed By: #### C BCA, 36948-5, PINR, 24384-1, 1798-8, CMP, 3040-3, 5643-2 ####[facility] ([id number])[address], [address] [place] [address] RBC COUNT 4.35 X10E12/L Normal 4.10-5.70 [facility] Comment on above: Performed By: #### C BCA, 00754-3, PINR, 39930-6, 1798-8, CMP, 3040-3, 5643-2 ####[facility] ([id number])[address] [address] [place] [address] WBC (Bld) [#/Vol] 6.4 10*3/uL Normal 4.0-11.0 [facility] Comment on above: Performed By: #### C BCA, 70587-0, PINR, 62866-6, 1798-8, CMP, 3040-3, 5643-2 ####[facility] ([id number])[address], [address] [place] [address] COMPREHENSIVE METABOLIC PANE [place] 06-05-2024 Albumin [Mass/Vol] 3.9 g/dL Normal 3.2-5.3 [facility] Comment on above: Performed By: #### C BCA, CMP #### [facility] ([id number]) [address], [address] [place] [address] ALP [Catalytic activity/Vol] 94 U/L Normal 39-130 [facility] Comment on above: Performed By: #### C BCA, CMP #### [facility] ([id number]) [address] [place] [address] ALT [Catalytic activity/Vol] 17 U/L Normal 0-40 [facility] Comment on above: Performed By: #### C BCA, CMP #### [facility] ([id number]) [address] [place] [address] Anion gap [Moles/Vol] 11 mmol/L Normal 5-15 [facility] Comment on above: Performed By: #### C BCA, CMP #### [facility] ([id number]) [address], [address] [place] [address] AST [Catalytic activity/Vol] 13 U/L Normal 0-41 [facility] Comment on above: Performed By: #### C BCA, CMP #### [facility] ([id number]) [address] [place] [address] Bilirubin [Mass/Vol] 0.5 mg/dL Normal 0.3-1.2 [facility] Comment on above: Performed By: #### C BCA, CMP #### [facility] ([id number]) [address], [address] [place] [address] Calcium [Mass/Vol] 8.8 mg/dL Normal 8.5-10.5 [facility] Comment on above: Performed By: #### C BCA, CMP #### [facility] ([id number]) [address] [place] [address] Chloride [Moles/Vol] 101 mmol/L Normal 98-109 [facility] Comment on above: Performed By: #### C BCA, CMP #### [facility] ([id number]) [address] [address] [place] [address] CO2 [Moles/Vol] 25 mmol/L Normal 22-32 [facility] Comment on above: Performed By: #### C BCA, CMP #### [facility] ([id number]) [address] [place] [address] Creatinine [Mass/Vol] 0.54 mg/dL Low 0.60-1.30 [facility] Comment on above: Result Comment: METH OD TRACEABLE TO IDMS STANDARD Performed By: #### C BCA, CMP #### [facility] ([id number]) [address] [address] [place] [address] eGFR (CKD-EPI) NON-RACE DEPENDENT >90 Normal >59 [facility] Comment on above: Result Comment: Reported eGFR is based on the CKD-EPI 2020 equation that does not use a race coefficient. Performed By: #### C BCA, CMP #### [facility] ([id number]) [address] [address] [place] [address] Glucose [Mass/Vol] 146 mg/dL High 65-99 [facility] Comment on above: Performed By: #### C BCA, CMP #### [facility] ([id number]) [address] [address] [place] [address] Potassium [Moles/Vol] 3.9 mmol/L Normal 3.5-5.0 [facility] Comment on above: Performed By: #### C BCA, CMP #### [facility] ([id number]) [address] [place] [address] Protein [Mass/Vol] 6.3 g/dL Normal 6.0-8.0 [facility] Comment on above: Performed By: #### C BCA, CMP #### [facility] ([id number]) [address] [place] [address] Sodium [Moles/Vol] 137 mmol/L Normal 134-146 [facility] Comment on above: Performed By: #### C BCA, CMP #### [facility] ([id number]) [address] [place] [address] Urea nitrogen [Mass/Vol] 13 mg/dL Normal 5-27 [facility] Comment on above: Performed By: #### C BCA, CMP #### [facility] ([id number]) [address] [place] [address] DRUG SCREEN, URINEon 024 AMPHETAMINE/METHAMP Negative Normal NEG [facility] Comment on above: Result Comment: AMPH /METH screening cut off = 1000 ng/mL Performed By: #### C BCA, CMP #### [facility] ([id number]) [address] [place] [address] BARBITURATES Negative Normal NEG [facility] Comment on above: Result Comment: Elsie iturates screening cut off value = 200 ng/mL Performed By: #### C BCA, CMP #### [facility] ([id number]) [address], [address] [place] [address] BENZODIAZEPINES Negative Normal NEG [facility] Comment on above: Result Comment: James odiazepines screening cut off value = 200 ng/mL Performed By: #### C BCA, CMP #### [facility] ([id number]) [address] [place] [address] CANNABINOIDS Negative Normal NEG [facility] Comment on above: Result Comment: Shawn abinoids/THC screening cut off value = 50 ng/mL Performed By: #### C BCA, CMP #### [facility] ([id number]) [address], [address] [place] [address] COCAINE METABOLITE Negative Normal NEG [facility] Comment on above: Result Comment: Coca ine screening cut off value = 300 ng/mL Performed By: #### C BCA, CMP #### [facility] ([id number]) [address], [address] [place] [address] ECSTASY Negative Normal NEG [facility] Comment on above: Result Comment: Ecst asy screening cut off value = 500 ng/mL This report is intended for use in clinical monitoring or management of patients. Performed By: #### C BCA, CMP #### [facility] ([id number]) [address], [address] [place] [address] METHADONE Negative Normal [facility] Comment on above: Result Comment: Meth adone screening cut off value = 300 ng/mL. Performed By: #### C BCA, CMP #### [facility] ([id number]) [address], [address] [place] [id number] OPIATES Negative Normal NEG [facility] Comment on above: Result Comment: Opia yanira screening cut off value = 300 ng/mL NOTE: This test is used for the detection of codeine, hydrocodone (>1000 ng/mL), morphine and hydromorphone (>900 ng/mL) in urine. Performed By: #### C BCA, CMP #### [facility] ([id number]) [address], [address] [place] [id number] OXYCODONE Negative Normal NEG [facility] Comment on above: Result Comment: Oxyc odone screening cut off value = 300 ng/mL NOTE: This test is used for the detection of oxycodone and oxymorphone in urine. Performed By: #### C BCA, CMP #### [facility] [facility] ([id number]) [address], [address] [place] [address] PHENCYCLIDINE Negative Normal [facility] Comment on above: Result Comment: Phen cyclidine screening cut off value = 25 ng/mL Performed By: #### C BCA, CMP #### [facility] ([id number]) [address], [address] [place] [address] ETHANOLon 06-05-2024 Ethanol [Mass/Vol] mg/dL Normal 0.00-0.08 [facility] Comment on above: Result Comment: This report is intended for use in clinical monitoring or management of patients. Performed By: #### Thais SHARMA, CMP #### [facility] ([id number]) [address], [address] [place] [address] Fibrinogen Coagulation.deriv ed (PPP) [Mass/Vol]on 06-05-2024 FIBRINOGEN 459 mg/dL Normal 190-480 [facility] Comment on above: Performed By: #### C ZACHARY, 77473-7, PINR, 00651-0, 8-8, CMP, 3040-3, 5643-2 ####[facility] ([id number])[address] [address] Glucose Glucometer (BldC) [M ass/Vol]on 06-05-2024 Glucose [Mass/Vol] 154 mg/dL High 65-99 [facility] LIPASEon 06-05-2024 Lipase [Catalytic activity/Vol] 35 U/L Normal 11-82 [facility] Comment on above: Performed By: #### Thais SHARMA, CMP #### [facility] ([id number]) [address] [address] PROTIME AND INRon 06-05-2024 INR Coag (PPP) [Relative time] 1.1 {INR} Normal 0.8-1.1 [facility] Comment on above: Performed By: #### Thais SHARMA, 00526-7, PINR, 40760-6, 1798-8, CMP, 3040-3, 5643-2 ####[facility] ([id number])[address] [address] PT Coag (PPP) [Time] 12.9 s Normal 9.8-13.2 [facility] Comment on above: Performed By: #### Thais SHARMA, 87808-0, PINR, 58624-1, 1798-8, CMP, 3040-3, 5643-2 ####[facility] ([id number])[address], [address], [place] [address] URINALYSISon 06-05-2024 Bilirubin Ql (U) Negative Normal NEG [facility] Comment on above: Performed By: #### C BCA, CMP #### [facility] ([id number]) [address], [address] [place] [address] BLOOD/HGB MODERATE Abnormal NEG [facility] Comment on above: Performed By: #### C BCA, CMP #### [facility] ([id number]) [address], [address] [place] [address] Color (U) YELLOW Normal YELLOW [facility] Comment on above: Performed By: #### C BCA, CMP #### [facility] ([id number]) [address], [address] [place] [address] Glucose Ql (U) Negative Normal NEG [facility] Comment on above: Performed By: #### C BCA, CMP #### [facility] ([id number]) [address], [address] [place] [address] Ketones Ql (U) Negative Normal NEG [facility] Comment on above: Performed By: #### C BCA, CMP #### [facility] ([id number]) [address], [address] [place] [address] Leukocyte esterase Test strip Ql (U) MODERATE Abnormal NEG [facility] Comment on above: Performed By: #### C BCA, CMP #### [facility] ([id number]) [address], [address] [place] [address] MUCOUS PRESENT Abnormal NONE [facility] Comment on above: Performed By: #### C BCA, CMP #### [facility] ([id number]) [address] [address] [place] [address] Nitrite Ql (U) Negative Normal NEG [facility] Comment on above: Performed By: #### C BCA, CMP #### [facility] ([id number]) [address] [address] [place] [address] pH (U) 6.5 [pH] Normal 5.0-8.5 [facility] Comment on above: Performed By: #### C BCA, CMP #### [facility] ([id number]) [address] [address] [place] [address] Protein Ql (U) 30 mg/dL Abnormal NEG [facility] Comment on above: Performed By: #### C BCA, CMP #### [facility] ([id number]) [address] [address] R.B.CELLS 35 /hpf High 0-5 [facility] Comment on above: Performed By: #### C BCA, CMP #### [facility] ([id number]) [address] [address] [place] [address] Specific gravity (U) [Rel density] 1.020 Normal 1.003-1.03 5 [facility] Comment on above: Performed By: #### C BCA, CMP #### [facility] ([id number]) [address] [address] TURBIDITY CLEAR Normal CLEAR [facility] Comment on above: Performed By: #### C BCA, CMP #### [facility] ([id number]) [address] [address] [place] [address] Urinalysis dipstick W Reflex Microscopic panel (U) URINE RECEIVED WITHOUT PRESERVATIVE-DELAYS IN TRANSPORT MAY AFFECT RESULTS.INTERPRET WITH CAUTION AND CLINICAL CORRELATION IS RECOMMENDED. Normal [facility] Comment on above: Performed By: #### C BCA, CMP #### [facility] ([id number]) [address], [address] [place] [address] Urobilinogen Qn (U) 3 {Marley'U}/dL High <1.1 [facility] Comment on above: Performed By: #### C BCA, CMP #### [facility] ([id number]) [address], [address] [place] [address] W.B.CELLS 37 /hpf High 0-5 [facility] Comment on above: Performed By: #### C BCA, CMP #### [facility] ([id number]) [address], [address] [place] [address] XR CHEST 1 VWon 06-05-2024 XR CHEST 1 VW XR CHEST 1 VW History: Pain after trauma Technique: A portable single frontal view the chest was obtained. Comparison: 10/26/2023 Findings: There is pulmonary vascular congestion, increased since the prior study. Lung easton are otherwise clear. The heart size is enlarged but is unchanged. Impression: Stable cardiomegaly but increasing pulmonary vascular congestion since the previous examination dated 10/26/2023. Finalized by Hussein Espino MD on 06/05/2024 10:48 PM Normal [facility] aPTT Coag (PPP) [Time]on aPTT Coag (Bld) [Time] 32 s Normal 26-37 [facility] Comment on above: Performed By: #### C BCA, 88947-4, PINR, 09398-8, 1798-8, CMP, 3040-3, 5643-2 ####[facility] ([id number])[address], [address], [place] [address] BASIC METABOLIC PANLon 06-01 Anion gap [Moles/Vol] 10 mmol/L Normal 5-15 [facility] Comment on above: Performed By: #### P INR, 74703-1, 38582-3, CBCA, 06272-3, CMP, 4548-4, 6873-4 #### [facility] ([id number]) [address] [place] [address] #### HA1C #### [facility] ([id number]) [address], [address] [place] [address] Calcium [Mass/Vol] 8.7 mg/dL Normal 8.5-10.5 [facility] Comment on above: Performed By: #### P INR, 62743-1, 60335-8, CBCA, 24733-2, CMP, 4548-4, 6873-4 #### [facility] ([id number]) [address] [place] [address] #### HA1C #### [facility] ([id number]) [address], [address] [place] [address] Chloride [Moles/Vol] 99 mmol/L Normal 98-109 [facility] Comment on above: Performed By: #### P INR, 48969-1, 94248-1, CBCA, 37196-8, CMP, 4548-4, 6873-4 #### [facility] ([id number]) [address] [place] [address] #### HA1C #### [facility] ([id number]) [address], [address] [place] [address] CO2 [Moles/Vol] 23 mmol/L Normal 22-32 [facility] Comment on above: Performed By: #### P INR, 41937-7, 87302-4, CBCA, 57339-5, CMP, 4548-4, 6873-4 #### [facility] ([id number]) [address] [place] [address] #### HA1C #### [facility] ([id number]) [address], [address] [place] [address] Creatinine [Mass/Vol] 0.59 mg/dL Low 0.70-1.20 [facility] Comment on above: Result Comment: METH OD TRACEABLE TO IDMS STANDARD Performed By: #### P INR, 37680-0, 29032-2, CBCA, 69527-1, CMP, 4548-4, 6873-4 #### [facility] ([id number]) [address] [place] [address] #### HA1C #### [facility] ([id number]) [address] [facility] [place] [address] eGFR (CKD-EPI) NON-RACE DEPENDENT >90 Normal >59 [facility] Comment on above: Result Comment: Reported eGFR is based on the CKD-EPI 2020 equation that does not use a race coefficient. Performed By: #### P INR, 59738-0, 55509-5, CBCA, 82614-9, CMP, 4548-4, 6873-4 #### [facility] ([id number]) [address] [place] [address] #### HA1C #### [facility] ([id number]) [address] [facility] [place] [address] Glucose [Mass/Vol] 163 mg/dL High 65-99 [facility] Comment on above: Performed By: #### P INR, 73998-4, 64196-8, CBCA, 77090-5, CMP, 4548-4, 6873-4 #### [facility] ([id number]) [address] [place] [address] #### HA1C #### [facility] ([id number]) [address] [facility] [place] [address] Potassium [Moles/Vol] 3.9 mmol/L Normal 3.5-5.0 [facility] Comment on above: Performed By: #### P INR, 98837-9, 19615-9, CBCA, 05319-0, CMP, 4548-4, 6873-4 #### [facility] ([id number]) [address] [place] [address] #### HA1C #### [facility] ([id number]) [address], [address] [place] [address] Sodium [Moles/Vol] 132 mmol/L Low 134-146 [facility] Comment on above: Performed By: #### P INR, 27806-6, 86937-3, CBCA, 64482-1, CMP, 4548-4, 6873-4 #### [facility] ([id number]) [address] [place] [address] #### HA1C #### [facility] ([id number]) [address] [place] [address] Urea nitrogen [Mass/Vol] 15 mg/dL Normal 5-27 [facility] Comment on above: Performed By: #### P INR, 07954-7, 13353-0, CBCA, 57132-8, CMP, 4548-4, 6873-4 #### [facility] ([id number]) [address] [place] [address] #### HA1C #### [facility] ([id number]) [address] [place] [address] CBC AND AUTO DIFFon 06-01-20 24 ABSOLUTE BASOPHIL 0.0 X10E9/L Normal 0.0-0.2 [facility] Comment on above: Performed By: #### P INR, 34897-3, 02062-1, CBCA, 13848-8, CMP, 4548-4, 6873-4 #### [facility] ([id number]) [address] [place] [address] #### HA1C #### [facility] ([id number]) [address], [address] [place] [address] ABSOLUTE NEUTROPHIL 2.5 X10E9/L Normal 1.5-6.6 [facility] Comment on above: Performed By: #### P INR, 12941-2, 65396-7, CBCA, 26051-9, CMP, 4548-4, 6873-4 #### [facility] ([id number]) [address] [place] [address] #### HA1C #### [facility] ([id number]) [address] [facility], [address] [place] [address] Basophils/100 WBC (Bld) 1.0 % Normal [facility] Comment on above: Performed By: #### P INR, 43518-9, 88284-3, CBCA, 34365-6, CMP, 4548-4, 6873-4 #### [facility] ([id number]) [address] [place] [address] #### HA1C #### [facility] ([id number]) [address] [facility], [address] [place] [address] Eosinophils (Bld) [#/Vol] 0.3 10*3/uL Normal 0.0-0.4 [facility] Comment on above: Performed By: #### P INR, 51977-0, 24582-3, CBCA, 58623-6, CMP, 4548-4, 6873-4 #### [facility] ([id number]) [address] [place] [address] #### HA1C #### [facility] ([id number]) [address] [facility] [place] [address] Eosinophils/100 WBC (Bld) 6.5 % Normal [facility] Comment on above: Performed By: #### P INR, 94691-2, 45588-3, CBCA, 71716-4, CMP, 4548-4, 6873-4 #### [facility] ([id number]) [address] [place] [address] #### HA1C #### [facility] ([id number]) [address], [facility] [address] [place] [address] Erythrocyte distribution width (RBC) [Ratio] 15.7 % High 11.5-15.0 [facility] Comment on above: Performed By: #### P INR, 42213-0, 29145-8, CBCA, 11469-8, CMP, 4548-4, 6873-4 #### [facility] ([id number]) [address] [place] [address] #### HA1C #### [facility] ([id number]) [address] [address] [place] [address] Hematocrit (Bld) [Volume fraction] 34.2 % Low 39-49 [facility] Comment on above: Performed By: #### P INR, 02168-1, 29573-5, CBCA, 24554-3, CMP, 4548-4, 6873-4 #### [facility] ([id number]) [address] [place] [address] #### HA1C #### [facility] ([id number]) [address] [place] [address] Hemoglobin (Bld) [Mass/Vol] 11.6 g/dL Low 13.0-17.0 [facility] Comment on above: Performed By: #### P INR, 97450-1, 09955-4, CBCA, 86224-3, CMP, 4548-4, 6873-4 #### [facility] ([id number]) [address] [place] [address] #### HA1C #### [facility] ([id number]) [address] [place] [address] Lymphocytes (Bld) [#/Vol] 1.6 10*3/uL Normal 1.0-3.5 [facility] Comment on above: Performed By: #### P INR, 13157-9, 99426-1, CBCA, 77929-1, CMP, 4548-4, 6873-4 #### [facility] ([id number]) [address] [place] [address] #### HA1C #### [facility] ([id number]) [address] [facility] [place] [address] Lymphocytes/100 WBC (Bld) 33.6 % Normal [facility] Comment on above: Performed By: #### P INR, 39655-6, 39452-2, CBCA, 88406-2, CMP, 4548-4, 6873-4 #### [facility] ([id number]) [address] [place] [address] #### HA1C #### [facility] ([id number]) [address] [facility] [place] [address] MCH (RBC) [Entitic mass] 27.2 pg Normal 27-34 [facility] Comment on above: Performed By: #### P INR, 36078-3, 70085-8, CBCA, 33788-8, CMP, 4548-4, 6873-4 #### [facility] ([id number]) [address] [place] [address] #### HA1C #### [facility] ([id number]) [address] [facility] [place] [address] MCHC (RBC) [Mass/Vol] 33.9 g/dL Normal 32-36 [facility] Comment on above: Performed By: #### P INR, 56422-0, 21254-7, CBCA, 68954-8, CMP, 4548-4, 6873-4 #### [facility] ([id number]) [address] [place] [address] #### HA1C #### [facility] ([id number]) [address] [place] [address] MCV (RBC) [Entitic vol] 80 fL Normal 80-100 [facility] Comment on above: Performed By: #### P INR, 24844-9, 57974-0, CBCA, 01423-4, CMP, 4548-4, 6873-4 #### [facility] ([id number]) [address] [place] [address] #### HA1C #### [facility] ([id number]) [address] [facility], [address] [place] [address] Monocytes (Bld) [#/Vol] 0.4 10*3/uL Normal 0-0.9 [facility] Comment on above: Performed By: #### P INR, 95050-4, 93182-7, CBCA, 81850-8, CMP, 4548-4, 6873-4 #### [facility] ([id number]) [address] [place] [address]67 #### HA1C #### [facility] ([id number]) [address] [facility], [address] [place] [address] Monocytes/100 WBC (Bld) 7.6 % Normal [facility] Comment on above: Performed By: #### P INR, 94585-4, 40134-1, CBCA, 88691-9, CMP, 4548-4, 6873-4 #### [facility] ([id number]) [address] [place] [address] #### HA1C #### [facility] ([id number]) [address] [facility] [place] [address] Neutrophils/100 WBC (Bld) 51.3 % Normal [facility] Comment on above: Performed By: #### P INR, 05219-4, 87643-0, CBCA, 67589-9, CMP, 4548-4, 6873-4 #### [facility] ([id number]) [address] [place] [address] #### HA1C #### [facility] ([id number]) [address], [address] [place] [address] Platelet mean volume (Bld) [Entitic vol] 6.8 fL Low 7-12 [facility] Comment on above: Performed By: #### P INR, 88037-7, 47751-1, CBCA, 20373-7, CMP, 4548-4, 6873-4 #### [facility] ([id number]) [address] [place] [address] 10871 #### HA1C #### [facility] ([id number]) [address] [facility] [place] [address] Platelets (Bld) [#/Vol] 300 10*3/uL Normal 150-450 [facility] Comment on above: Performed By: #### P INR, 77548-4, 64270-3, CBCA, 95437-3, CMP, 4548-4, 6873-4 #### [facility] ([id number]) [address] [place] [address]1953 #### HA1C #### [facility] ([id number]) [address] [facility], [address] [place] [address] RBC COUNT 4.25 X10E12/L Normal 4.10-5.70 [facility] Comment on above: Performed By: #### P INR, 43524-7, 62091-3, CBCA, 21507-0, CMP, 4548-4, 6873-4 #### [facility] ([id number]) [address] [place] [address] 97151 #### HA1C #### [facility] ([id number]) [address] [place] [address] WBC (Bld) [#/Vol] 4.9 10*3/uL Normal 4.0-11.0 [facility] Comment on above: Performed By: #### P INR, 58822-3, 96273-7, CBCA, 78592-8, CMP, 4548-4, 6873-4 #### [facility] ([id number]) [address] [place] [address]4730 #### HA1C #### [facility] ([id number]) [address] [place] [address] Glucose Glucometer (BldC) [M ass/Vol]on 06-01-2024 Glucose [Mass/Vol] 143 mg/dL High 65-99 [facility] BASIC METABOLIC PANLon 05-31 Anion gap [Moles/Vol] 8 mmol/L Normal 5-15 [facility] Comment on above: Performed By: #### P INR, 57691-1, 74140-0, CBCA, 49900-2, CMP, 4548-4, 6873-4 #### [facility] ([id number]) [address] [place] [address] 53906 #### HA1C #### [facility] ([id number]) [address] [place] [address] Calcium [Mass/Vol] 8.5 mg/dL Normal 8.5-10.5 [facility] Comment on above: Performed By: #### P INR, 85145-2, 40232-6, CBCA, 87931-4, CMP, 4548-4, 6873-4 #### [facility] ([id number]) [address] [place] [address] 18183 #### HA1C #### [facility] ([id number]) [address] [place] [address] Chloride [Moles/Vol] 100 mmol/L Normal 98-109 [facility] Comment on above: Performed By: #### P INR, 10302-9, 31413-8, CBCA, 11370-7, CMP, 4548-4, 6873-4 #### [facility] ([id number]) [address] [place] [address] 72973 #### HA1C #### [facility] ([id number]) [address] [facility], [address] [place] [address] CO2 [Moles/Vol] 24 mmol/L Normal 22-32 [facility] Comment on above: Performed By: #### P INR, 33721-6, 47155-3, CBCA, 19097-1, CMP, 4548-4, 6873-4 #### [facility] ([id number]) [address] [place] [address] 98757 #### HA1C #### [facility] ([id number]) [address] [facility] [place] [address] Creatinine [Mass/Vol] 0.69 mg/dL Low 0.70-1.20 [facility] Comment on above: Result Comment: METH OD TRACEABLE TO IDMS STANDARD Performed By: #### P INR, 68851-1, 96896-9, CBCA, 09909-5, CMP, 4548-4, 6873-4 #### [facility] ([id number]) [address] [place] [address] 63023 #### HA1C #### [facility] ([id number]) [address] [place] [address] eGFR (CKD-EPI) NON-RACE DEPENDENT >90 Normal >59 [facility] Comment on above: Result Comment: Reported eGFR is based on the CKD-EPI 2020 equation that does not use a race coefficient. Performed By: #### P INR, 75475-8, 46599-3, CBCA, 62728-8, CMP, 4548-4, 6873-4 #### [facility] ([id number]) [address] [place] [address] 37193 #### HA1C #### [facility] ([id number]) [address] [place] [address] Glucose [Mass/Vol] 139 mg/dL High 65-99 [facility] Comment on above: Performed By: #### P INR, 58145-3, 66963-9, CBCA, 50051-1, CMP, 4548-4, 6873-4 #### [facility] ([id number]) [address] [place] [address] 67628 #### HA1C #### [facility] ([id number]) [address] [facility] [place] [address] Potassium [Moles/Vol] 3.7 mmol/L Normal 3.5-5.0 [facility] Comment on above: Performed By: #### P INR, 12879-7, 14873-5, CBCA, 03500-6, CMP, 4548-4, 6873-4 #### [facility] ([id number]) [address] [place] [address] #### HA1C #### [facility] ([id number]) [address], [address] [place] [address] Sodium [Moles/Vol] 132 mmol/L Low 134-146 [facility] Comment on above: Performed By: #### P INR, 27144-7, 12163-2, CBCA, 98067-0, CMP, 4548-4, 6873-4 #### [facility] ([id number]) [address] [place] [address] #### HA1C #### [facility] ([id number]) [address], [address] [place] [address] Urea nitrogen [Mass/Vol] 16 mg/dL Normal 5-27 [facility] Comment on above: Performed By: #### P INR, 75650-7, 48280-2, CBCA, 11128-3, CMP, 4548-4, 6873-4 #### [facility] ([id number]) [address] [place] [address] #### HA1C #### [facility] ([id number]) [address], [address] [place] [address] CBC AND AUTO DIFFon 08-03-15 24 ABSOLUTE BASOPHIL 0.1 X10E9/L Normal 0.0-0.2 [facility] Comment on above: Performed By: #### P INR, 82004-4, 54698-3, CBCA, 61604-1, CMP, 4548-4, 6873-4 #### [facility] ([id number]) [address] [place] [address] #### HA1C #### [facility] ([id number]) [address], [address] [place] [address] ABSOLUTE NEUTROPHIL 3.4 X10E9/L Normal 1.5-6.6 [facility] Comment on above: Performed By: #### P INR, 97112-8, 58225-7, CBCA, 96141-1, CMP, 4548-4, 6873-4 #### [facility] ([id number]) [address] [place] [address] #### HA1C #### [facility] ([id number]) [address], [address] [place] [address] Basophils/100 WBC (Bld) 1.1 % Normal [facility] Comment on above: Performed By: #### P INR, 17195-1, 18300-0, CBCA, 31629-3, CMP, 4548-4, 6873-4 #### [facility] ([id number]) [address] [place] [address] #### HA1C #### [facility] ([id number]) [address], [address] [place] [address] Eosinophils (Bld) [#/Vol] 0.4 10*3/uL Normal 0.0-0.4 [facility] Comment on above: Performed By: #### P INR, 59702-0, 73775-1, CBCA, 21082-8, CMP, 4548-4, 6873-4 #### [facility] ([id number]) [address] [place] [address] #### HA1C #### [facility] ([id number]) [address], [address] [place] [address] Eosinophils/100 WBC (Bld) 7.9 % Normal [facility] Comment on above: Performed By: #### P INR, 97862-8, 65231-2, CBCA, 69694-1, CMP, 4548-4, 6873-4 #### [facility] ([id number]) [address] [place] [address] #### HA1C #### [facility] ([id number]) [address] [facility], [address] [place] [address] Erythrocyte distribution width (RBC) [Ratio] 15.1 % High 11.5-15.0 [facility] Comment on above: Performed By: #### P INR, 05274-5, 78435-7, CBCA, 02354-3, CMP, 4548-4, 6873-4 #### [facility] ([id number]) [address] [place] [address] 63226 #### HA1C #### [facility] ([id number]) [address], [address] [place] [address] Hematocrit (Bld) [Volume fraction] 37.2 % Low 39-49 [facility] Comment on above: Performed By: #### P INR, 19364-8, 50643-9, CBCA, 82329-3, CMP, 4548-4, 6873-4 #### [facility] ([id number]) [address] [place] [address] 08279 #### HA1C #### [facility] ([id number]) [address], [address] [place] [address] Hemoglobin (Bld) [Mass/Vol] 12.5 g/dL Low 13.0-17.0 [facility] Comment on above: Performed By: #### P INR, 40434-7, 89614-6, CBCA, 42415-3, CMP, 4548-4, 6873-4 #### [facility] ([id number]) [address] [place] [address] 67700 #### HA1C #### [facility] ([id number]) [address], [address] [place] [address] Lymphocytes (Bld) [#/Vol] 1.2 10*3/uL Normal 1.0-3.5 [facility] Comment on above: Performed By: #### P INR, 38867-2, 93613-9, CBCA, 54386-5, CMP, 4548-4, 6873-4 #### [facility] ([id number]) [address] [place] [address] 52819 #### HA1C #### [facility] ([id number]) [address], [address] [place] [address] Lymphocytes/100 WBC (Bld) 21.2 % Normal [facility] Comment on above: Performed By: #### P INR, 15729-5, 35656-0, CBCA, 07051-1, CMP, 4548-4, 6873-4 #### [facility] ([id number]) [address] [place] [address] 85562 #### HA1C #### [facility] ([id number]) [address], [address] [place] [address] MCH (RBC) [Entitic mass] 27.4 pg Normal 27-34 [facility] Comment on above: Performed By: #### P INR, 50609-2, 44877-0, CBCA, 09251-9, CMP, 4548-4, 6873-4 #### [facility] ([id number]) [address] [place] [address] 04568 #### HA1C #### [facility] ([id number]) [address] [place] [address] MCHC (RBC) [Mass/Vol] 33.7 g/dL Normal 32-36 [facility] Comment on above: Performed By: #### P INR, 92575-4, 58928-6, CBCA, 29191-3, CMP, 4548-4, 6873-4 #### [facility] ([id number]) [address] [place] [address] 33883 #### HA1C #### [facility] ([id number]) [address], [address] [place] [address] MCV (RBC) [Entitic vol] 81 fL Normal 80-100 [facility] Comment on above: Performed By: #### P INR, 37576-6, 78905-2, CBCA, 43001-4, CMP, 4548-4, 6873-4 #### [facility] ([id number]) [address] [place] [address] 61761 #### HA1C #### [facility] ([id number]) [address], [address] [place] [address] Monocytes (Bld) [#/Vol] 0.4 10*3/uL Normal 0-0.9 [facility] Comment on above: Performed By: #### P INR, 70436-6, 47120-4, CBCA, 87357-9, CMP, 4548-4, 6873-4 #### [facility] ([id number]) [address] [place] [address] 51862 #### HA1C #### [facility] ([id number]) [address] [facility], [address] [place] [address] Monocytes/100 WBC (Bld) 6.7 % Normal [facility] Comment on above: Performed By: #### P INR, 74687-3, 37591-1, CBCA, 85976-4, CMP, 4548-4, 6873-4 #### [facility] ([id number]) [address] [place] [address] 91696 #### HA1C #### [facility] ([id number]) [address], [address] [place] [address] Neutrophils/100 WBC (Bld) 63.1 % Normal [facility] Comment on above: Performed By: #### P INR, 22212-8, 95491-5, CBCA, 62073-2, CMP, 4548-4, 6873-4 #### [facility] ([id number]) [address] [place] [address] 30706 #### HA1C #### [facility] ([id number]) [address], [address] [place] [address] Platelet mean volume (Bld) [Entitic vol] 6.9 fL Low 7-12 [facility] Comment on above: Performed By: #### P INR, 73001-1, 51323-7, CBCA, 37321-7, CMP, 4548-4, 6873-4 #### [facility] ([id number]) [address] [place] [address] 32234 #### HA1C #### [facility] ([id number]) [address], [address] [place] [address] Platelets (Bld) [#/Vol] 297 10*3/uL Normal 150-450 [facility] Comment on above: Performed By: #### P INR, 83826-3, 38940-4, CBCA, 13085-2, CMP, 4548-4, 6873-4 #### [facility] ([id number]) [address] [place] [address] 17650 #### JONATHAN #### [facility] ([id number]) [address] [facility], [address] [place] [address] RBC COUNT 4.57 X10E12/L Normal 4.10-5.70 [facility] Comment on above: Performed By: #### P INR, 42489-9, 99397-6, CBCA, 86258-0, CMP, 4548-4, 6873-4 #### [facility] ([id number]) [address] [place] [address] 26439 #### HA1C #### [facility] ([id number]) [address] [facility], [address] [place] [address] WBC (Bld) [#/Vol] 5.4 10*3/uL Normal 4.0-11.0 [facility] Comment on above: Performed By: #### P INR, 32056-0, 10579-6, CBCA, 91470-5, CMP, 4548-4, 6873-4 #### [facility] ([id number]) [address] [place] [address] 99409 #### HA1C #### [facility] ([id number]) [address] [facility], [address] [place] [address] Glucose Glucometer (BldC) [M ass/Vol]on 05-31-2024 Glucose [Mass/Vol] 201 mg/dL High 65-99 [facility] Glucose [Mass/Vol] 217 mg/dL High 65-99 [facility] Glucose [Mass/Vol] 189 mg/dL High 65-99 [facility] Glucose [Mass/Vol] 148 mg/dL High 65-99 [facility] CBC AND AUTO DIFFon 05-30-20 ABSOLUTE BASOPHIL 0.1 X10E9/L Normal 0.0-0.2 [facility] Comment on above: Performed By: #### P INR, 90287-4, 21143-1, CBCA, 62963-1, CMP, 4548-4, 6873-4 #### [facility] ([id number]) [address] [place] [address] 83057 #### HA1C #### [facility] ([id number]) [address] [facility], [address] [place] [address] ABSOLUTE NEUTROPHIL 2.4 X10E9/L Normal 1.5-6.6 [facility] Comment on above: Performed By: #### P INR, 58073-3, 80380-1, CBCA, 17870-6, CMP, 4548-4, 6873-4 #### [facility] ([id number]) [address] [place] [address] 93000 #### HA1C #### [facility] ([id number]) [address] [facility], [address] [place] [address] Basophils/100 WBC (Bld) 1.2 % Normal [facility] Comment on above: Performed By: #### P INR, 31588-7, 40191-2, CBCA, 82568-8, CMP, 4548-4, 6873-4 #### [facility] ([id number]) [address] [place] [address] 54449 #### HA1C #### [facility] ([id number]) [address], [address] [place] [address] Eosinophils (Bld) [#/Vol] 0.4 10*3/uL Normal 0.0-0.4 [facility] Comment on above: Performed By: #### P INR, 72593-1, 82225-7, CBCA, 83154-0, CMP, 4548-4, 6873-4 #### [facility] ([id number]) [address] [place] [address] 82431 #### HA1C #### [facility] ([id number]) [address], [address] [place] [address] Eosinophils/100 WBC (Bld) 10.0 % Normal [facility] Comment on above: Performed By: #### P INR, 93534-0, 70590-9, CBCA, 11761-6, CMP, 4548-4, 6873-4 #### [facility] ([id number]) [address] [place] [address] 13921 #### HA1C #### [facility] ([id number]) [address], [address] [place] [address] Erythrocyte distribution width (RBC) [Ratio] 15.3 % High 11.5-15.0 [facility] Comment on above: Performed By: #### P INR, 80424-4, 13932-2, CBCA, 37229-5, CMP, 4548-4, 6873-4 #### [facility] ([id number]) [address] [place] [address] 98600 #### HA1C #### [facility] ([id number]) [address], [address] [place] [address] Hematocrit (Bld) [Volume fraction] 33.6 % Low 39-49 [facility] Comment on above: Performed By: #### P INR, 92897-8, 21257-2, CBCA, 61201-6, CMP, 4548-4, 6873-4 #### [facility] ([id number]) [address] [place] [address] 24001 #### HA1C #### [facility] ([id number]) [address], [facility] [address] [place] [address] Hemoglobin (Bld) [Mass/Vol] 11.3 g/dL Low 13.0-17.0 [facility] Comment on above: Performed By: #### P INR, 60660-6, 85409-7, CBCA, 73774-5, CMP, 4548-4, 6873-4 #### [facility] ([id number]) [address] [place] [address] 36201 #### HA1C #### [facility] ([id number]) [address] [address] [place] [address] Lymphocytes (Bld) [#/Vol] 1.1 10*3/uL Normal 1.0-3.5 [facility] Comment on above: Performed By: #### P INR, 43700-7, 16558-6, CBCA, 26574-4, CMP, 4548-4, 6873-4 #### [facility] ([id number]) [address] [place] [address] 70243 #### HA1C #### [facility] ([id number]) [address] [address] [place] [address] Lymphocytes/100 WBC (Bld) 24.4 % Normal [facility] Comment on above: Performed By: #### P INR, 40888-2, 99273-1, CBCA, 03061-7, CMP, 4548-4, 6873-4 #### [facility] ([id number]) [address] [place] [address] 31867 #### HA1C #### [facility] ([id number]) [address], [address] [place] [address] MCH (RBC) [Entitic mass] 27.2 pg Normal 27-34 [facility] Comment on above: Performed By: #### P INR, 83681-4, 12958-7, CBCA, 94839-7, CMP, 4548-4, 6873-4 #### [facility] ([id number]) [address] [place] [address] 20731 #### HA1C #### [facility] ([id number]) [address] [facility], [address] [place] [address] MCHC (RBC) [Mass/Vol] 33.5 g/dL Normal 32-36 [facility] Comment on above: Performed By: #### P INR, 89734-6, 42532-6, CBCA, 30358-5, CMP, 4548-4, 6873-4 #### [facility] ([id number]) [address] [place] [address] 48413 #### HA1C #### [facility] ([id number]) [address], [address] [place] [address] MCV (RBC) [Entitic vol] 81 fL Normal 80-100 [facility] Comment on above: Performed By: #### P INR, 97168-0, 23223-1, CBCA, 11207-0, CMP, 4548-4, 6873-4 #### [facility] ([id number]) [address] [place] [address] 86021 #### HA1C #### [facility] ([id number]) [address], [address] [place] [address] Monocytes (Bld) [#/Vol] 0.4 10*3/uL Normal 0-0.9 [facility] Comment on above: Performed By: #### P INR, 99915-1, 84681-6, CBCA, 62651-5, CMP, 4548-4, 6873-4 #### [facility] ([id number]) [address] [place] [address] 09487 #### HA1C #### [facility] ([id number]) [address] [facility], [address] [place] [address] Monocytes/100 WBC (Bld) 9.7 % Normal [facility] Comment on above: Performed By: #### P INR, 85627-7, 57381-5, CBCA, 11260-1, CMP, 4548-4, 6873-4 #### [facility] ([id number]) [address] [place] [address] 85928 #### HA1C #### [facility] ([id number]) [address] [facility], [address] [place] [address] Neutrophils/100 WBC (Bld) 54.7 % Normal [facility] Comment on above: Performed By: #### P INR, 99288-3, 54744-1, CBCA, 00691-3, CMP, 4548-4, 6873-4 #### [facility] ([id number]) [address] [place] [address] 15716 #### HA1C #### [facility] ([id number]) [address] [facility], [address] [place] [address] Platelet mean volume (Bld) [Entitic vol] 7.1 fL Normal 7-12 [facility] Comment on above: Performed By: #### P INR, 16913-3, 30509-4, CBCA, 96921-9, CMP, 4548-4, 6873-4 #### [facility] ([id number]) [address] [place] [address] 90118 #### HA1C #### [facility] ([id number]) [address], [address] [place] [address] Platelets (Bld) [#/Vol] 282 10*3/uL Normal 150-450 [facility] Comment on above: Performed By: #### P INR, 84295-0, 81161-5, CBCA, 03393-6, CMP, 4548-4, 6873-4 #### [facility] ([id number]) [address] [place] [address] 73912 #### HA1C #### [facility] ([id number]) [address], [address] [place] [address] RBC COUNT 4.14 X10E12/L Normal 4.10-5.70 [facility] Comment on above: Performed By: #### P INR, 06619-0, 12043-0, CBCA, 48271-1, CMP, 4548-4, 6873-4 #### [facility] ([id number]) [address] [place] [address] 14558 #### HA1C #### [facility] ([id number]) [address], [address] [place] [address] WBC (Bld) [#/Vol] 4.4 10*3/uL Normal 4.0-11.0 [facility] Comment on above: Performed By: #### P INR, 99434-5, 40233-2, CBCA, 50267-2, CMP, 4548-4, 6873-4 #### [facility] ([id number]) [address] [place] [address] 93230 #### HA1C #### [facility] ([id number]) [address], [address] [place] [address] COMPREHENSIVE METABOLIC PANE [place] 05-30-2024 Albumin [Mass/Vol] 3.3 g/dL Normal 3.2-5.3 [facility] Comment on above: Performed By: #### P INR, 95069-1, 17035-9, CBCA, 80114-1, CMP, 4548-4, 6873-4 #### [facility] ([id number]) [address] [place] [address] 60172 #### HA1C #### [facility] ([id number]) [address] [facility], [address] [place] [address] ALP [Catalytic activity/Vol] 82 U/L Normal 39-130 [facility] Comment on above: Performed By: #### P INR, 82712-6, 22908-2, CBCA, 04812-9, CMP, 4548-4, 6873-4 #### [facility] ([id number]) [address] [place] [address] 52471 #### HA1C #### [facility] ([id number]) [address] [facility], [address] [place] [address] ALT [Catalytic activity/Vol] 27 U/L Normal 0-40 [facility] Comment on above: Performed By: #### P INR, 98850-2, 01922-2, CBCA, 83366-2, CMP, 4548-4, 6873-4 #### [facility] ([id number]) [address] [place] [address] 07994 #### HA1C #### [facility] ([id number]) [address] [facility], [address] [place] [address] Anion gap [Moles/Vol] 7 mmol/L Normal 5-15 [facility] Comment on above: Performed By: #### P INR, 52611-8, 20829-9, CBCA, 22604-8, CMP, 4548-4, 6873-4 #### [facility] ([id number]) [address] [place] [address] 93356 #### HA1C #### [facility] ([id number]) [address], [address] [place] [address] AST [Catalytic activity/Vol] 21 U/L Normal 0-41 [facility] Comment on above: Performed By: #### P INR, 57625-6, 61555-2, CBCA, 94766-1, CMP, 4548-4, 6873-4 #### [facility] ([id number]) [address] [place] [address] 56575 #### HA1C #### [facility] ([id number]) [address], [address] [place] [address] Bilirubin [Mass/Vol] 0.6 mg/dL Normal 0.3-1.2 [facility] Comment on above: Performed By: #### P INR, 11209-4, 31345-4, CBCA, 64838-9, CMP, 4548-4, 6873-4 #### [facility] ([id number]) [address] [place] [address] 17954 #### HA1C #### [facility] ([id number]) [address], [address] [place] [address] Calcium [Mass/Vol] 8.2 mg/dL Low 8.5-10.5 [facility] Comment on above: Performed By: #### P INR, 13050-2, 64927-1, CBCA, 15202-5, CMP, 4548-4, 6873-4 #### [facility] ([id number]) [address] [place] [address] 20948 #### HA1C #### [facility] ([id number]) [address], [address] [place] [address] Chloride [Moles/Vol] 103 mmol/L Normal 98-109 [facility] Comment on above: Performed By: #### P INR, 19798-5, 92390-2, CBCA, 21030-2, CMP, 4548-4, 6873-4 #### [facility] ([id number]) [address] [place] [address] 19740 #### HA1C #### [facility] ([id number]) [address], [address] [place] [address] CO2 [Moles/Vol] 23 mmol/L Normal 22-32 [facility] Comment on above: Performed By: #### P INR, 47918-5, 41406-0, CBCA, 82610-9, CMP, 4548-4, 6873-4 #### [facility] ([id number]) [address] [place] [address] 22097 #### HA1C #### [facility] ([id number]) [address] [facility], [address] [place] [address] Creatinine [Mass/Vol] 0.69 mg/dL Low 0.70-1.20 [facility] Comment on above: Result Comment: METH OD TRACEABLE TO IDMS STANDARD Performed By: #### P INR, 18129-2, 50033-6, CBCA, 11853-4, CMP, 4548-4, 6873-4 #### [facility] ([id number]) [address] [place] [address] 15855 #### HA1C #### [facility] ([id number]) [address], [address] [place] [address] eGFR (CKD-EPI) NON-RACE DEPENDENT >90 Normal >59 [facility] Comment on above: Result Comment: Reported eGFR is based on the CKD-EPI 2020 equation that does not use a race coefficient. Performed By: #### P INR, 17255-3, 07004-1, CBCA, 63282-1, CMP, 4548-4, 6873-4 #### [facility] ([id number]) [address] [place] [address] 53125 #### HA1C #### [facility] ([id number]) [address], [address] [place] [address] Glucose [Mass/Vol] 132 mg/dL High 65-99 [facility] Comment on above: Performed By: #### P INR, 57231-4, 49452-3, CBCA, 07354-7, CMP, 4548-4, 6873-4 #### [facility] ([id number]) [address] [place] [address] 47599 #### HA1C #### [facility] ([id number]) [address], [address] [place] [address] Potassium [Moles/Vol] 3.6 mmol/L Normal 3.5-5.0 [facility] Comment on above: Performed By: #### P INR, 17253-4, 50792-2, CBCA, 53062-1, CMP, 4548-4, 6873-4 #### [facility] ([id number]) [address] [place] [address] 03165 #### HA1C #### [facility] ([id number]) [address], [address] [place] [address] Protein [Mass/Vol] 6.4 g/dL Normal 6.0-8.0 [facility] Comment on above: Performed By: #### P INR, 24063-4, 37505-0, CBCA, 98109-7, CMP, 4548-4, 6873-4 #### [facility] ([id number]) [address] [place] [address] 49150 #### HA1C #### [facility] ([id number]) [address], [address] [place] [address] Sodium [Moles/Vol] 133 mmol/L Low 134-146 [facility] Comment on above: Performed By: #### P INR, 12116-6, 42504-2, CBCA, 37053-6, CMP, 4548-4, 6873-4 #### [facility] ([id number]) [address] [place] [address] 14325 #### HA1C #### [facility] ([id number]) [address] [facility], [address] [place] [address] Urea nitrogen [Mass/Vol] 25 mg/dL Normal 5-27 [facility] Comment on above: Performed By: #### P INR, 71394-9, 11100-0, CBCA, 53632-3, CMP, 4548-4, 6873-4 #### [facility] ([id number]) [address] [place] [address] 62953 #### HA1C #### [facility] ([id number]) [address], [address] [place] [address] Glucose Glucometer (dC) [M ass/Vol]on 05-30-2024 Glucose [Mass/Vol] 194 mg/dL High 65-99 [facility] Glucose [Mass/Vol] 176 mg/dL High 65-99 [facility] Glucose [Mass/Vol] 131 mg/dL High 65-99 [facility] Glucose [Mass/Vol] 122 mg/dL High 65-99 [facility] CBC AND AUTO DIFFon 05-29-20 24 ABSOLUTE BASOPHIL 0.0 X10E9/L Normal 0.0-0.2 [facility] Comment on above: Performed By: #### P INR, 30572-9, 94024-5, CBCA, 18522-5, CMP, 4548-4, 6873-4 #### [facility] ([id number]) [address] [place] [address] 85736 #### HA1C #### [facility] ([id number]) [address], [address] [place] [address] ABSOLUTE NEUTROPHIL 3.0 X10E9/L Normal 1.5-6.6 [facility] Comment on above: Performed By: #### P INR, 88491-3, 70502-2, CBCA, 80682-8, CMP, 4548-4, 6873-4 #### [facility] ([id number]) [address] [place] [address] #### HA1C #### [facility] ([id number]) [address], [address] [place] [address] Basophils/100 WBC (Bld) 0.5 % Normal [facility] Comment on above: Performed By: #### P INR, 32649-1, 99771-9, CBCA, 57646-1, CMP, 4548-4, 6873-4 #### [facility] ([id number]) [address] [place] [address] #### HA1C #### [facility] ([id number]) [address], [address] [place] [address] Eosinophils (Bld) [#/Vol] 0.3 10*3/uL Normal 0.0-0.4 [facility] Comment on above: Performed By: #### P INR, 25705-9, 60509-2, CBCA, 51668-7, CMP, 4548-4, 6873-4 #### [facility] ([id number]) [address] [place] [address] #### HA1C #### [facility] ([id number]) [address], [address] [place] [address] Eosinophils/100 WBC (Bld) 6.0 % Normal [facility] Comment on above: Performed By: #### P INR, 38979-5, 56048-3, CBCA, 53816-3, CMP, 4548-4, 6873-4 #### [facility] ([id number]) [address] [place] [address] #### HA1C #### [facility] ([id number]) [address], [address] [place] [address] Erythrocyte distribution width (RBC) [Ratio] 15.7 % High 11.5-15.0 [facility] Comment on above: Performed By: #### P INR, 52730-2, 42551-5, CBCA, 77191-2, CMP, 4548-4, 6873-4 #### [facility] ([id number]) [address] [place] [address] #### HA1C #### [facility] ([id number]) [address], [address] [place] [address] Hematocrit (Bld) [Volume fraction] 31.8 % Low 39-49 [facility] Comment on above: Performed By: #### P INR, 10083-2, 19711-0, CBCA, 04870-0, CMP, 4548-4, 6873-4 #### [facility] ([id number]) [address] [place] [address] #### HA1C #### [facility] ([id number]) [address], [address] [place] [address] Hemoglobin (Bld) [Mass/Vol] 10.7 g/dL Low 13.0-17.0 [facility] Comment on above: Performed By: #### P INR, 70047-9, 70068-2, CBCA, 21760-0, CMP, 4548-4, 6873-4 #### [facility] ([id number]) [address] [place] [address] #### HA1C #### [facility] ([id number]) [address] [facility], [address] [place] [address] Lymphocytes (Bld) [#/Vol] 0.7 10*3/uL Low 1.0-3.5 [facility] Comment on above: Performed By: #### P INR, 29666-6, 58902-9, CBCA, 36626-4, CMP, 4548-4, 6873-4 #### [facility] ([id number]) [address] [place] [address] #### HA1C #### [facility] ([id number]) [address] [place] [address], [address] [place] [address] Lymphocytes/100 WBC (Bld) 14.9 % Normal [facility] Comment on above: Performed By: #### P INR, 93265-4, 73550-0, CBCA, 67002-7, CMP, 4548-4, 6873-4 #### [facility] ([id number]) [address] [place] [address] #### HA1C #### [facility] ([id number]) [address] [facility], [address] [place] [address] MCH (RBC) [Entitic mass] 27.7 pg Normal 27-34 [facility] Comment on above: Performed By: #### P INR, 22375-1, 95191-5, CBCA, 21158-2, CMP, 4548-4, 6873-4 #### [facility] ([id number]) [address] [place] [address] #### HA1C #### [facility] ([id number]) [address] [facility], [address] [place] [address] MCHC (RBC) [Mass/Vol] 33.7 g/dL Normal 32-36 [facility] Comment on above: Performed By: #### P INR, 77260-9, 89498-6, CBCA, 50484-8, CMP, 4548-4, 6873-4 #### [facility] ([id number]) [address] [place] [address] 03766 #### HA1C #### [facility] ([id number]) [address], [address] [place] [address] MCV (RBC) [Entitic vol] 82 fL Normal 80-100 [facility] Comment on above: Performed By: #### P INR, 30267-8, 92062-1, CBCA, 56162-7, CMP, 4548-4, 6873-4 #### [facility] ([id number]) [address] [place] [address] 48711 #### HA1C #### [facility] ([id number]) [address] [facility], [address] [place] [address] Monocytes (Bld) [#/Vol] 0.5 10*3/uL Normal 0-0.9 [facility] Comment on above: Performed By: #### P INR, 57494-2, 07809-0, CBCA, 07491-7, CMP, 4548-4, 6873-4 #### [facility] ([id number]) [address] [place] [address] 14191 #### HA1C #### [facility] ([id number]) [address] [facility], [address] [place] [address] Monocytes/100 WBC (Bld) 11.2 % Normal [facility] Comment on above: Performed By: #### P INR, 67413-0, 93161-5, CBCA, 23198-7, CMP, 4548-4, 6873-4 #### [facility] ([id number]) [address] [place] [address] 79532 #### HA1C #### [facility] ([id number]) [address] [facility], [address] [place] [address] Neutrophils/100 WBC (Bld) 67.4 % Normal [facility] Comment on above: Performed By: #### P INR, 31915-3, 04421-9, CBCA, 72358-9, CMP, 4548-4, 6873-4 #### [facility] ([id number]) [address] [place] [address] 16070 #### HA1C #### [facility] ([id number]) [address] [facility], [address] [place] [address] Platelet mean volume (Bld) [Entitic vol] 7.4 fL Normal 7-12 [facility] Comment on above: Performed By: #### P INR, 27762-2, 34231-0, CBCA, 81860-6, CMP, 4548-4, 6873-4 #### [facility] ([id number]) [address] [place] [address] 45348 #### HA1C #### [facility] ([id number]) [address] [place] [address] Platelets (Bld) [#/Vol] 263 10*3/uL Normal 150-450 [facility] Comment on above: Performed By: #### P INR, 87691-8, 09443-3, CBCA, 34586-0, CMP, 4548-4, 6873-4 #### [facility] ([id number]) [address] [place] [address] 47643 #### HA1C #### [facility] ([id number]) [address] [place] [address], [address] [place] [address] RBC COUNT 3.86 X10E12/L Low 4.10-5.70 [facility] Comment on above: Performed By: #### P INR, 79880-9, 81028-1, CBCA, 21615-8, CMP, 4548-4, 6873-4 #### [facility] ([id number]) [address] [place] [address] 35931 #### HA1C #### [facility] ([id number]) [address] [facility], [address] [place] [address] WBC (Bld) [#/Vol] 4.4 10*3/uL Normal 4.0-11.0 [facility] Comment on above: Performed By: #### P INR, 48756-1, 40065-8, CBCA, 08558-4, CMP, 4548-4, 6873-4 #### [facility] ([id number]) [address] [place] [address] 39874 #### HA1C #### [facility] ([id number]) [address] [facility], [address] [place] [address] COMPREHENSIVE METABOLIC PANE [place] 05-29-2024 Albumin [Mass/Vol] 3.1 g/dL Low 3.2-5.3 [facility] Comment on above: Performed By: #### P INR, 66091-4, 01545-6, CBCA, 54547-9, CMP, 4548-4, 6873-4 #### [facility] ([id number]) [address] [place] [address] 16639 #### HA1C #### [facility] ([id number]) [address] [place] [address], [address] [place] [address] ALP [Catalytic activity/Vol] 79 U/L Normal 39-130 [facility] Comment on above: Performed By: #### P INR, 93007-9, 02902-4, CBCA, 18713-3, CMP, 4548-4, 6873-4 #### [facility] ([id number]) [address] [place] [address] 36467 #### HA1C #### [facility] ([id number]) [address], [address] [place] [address] ALT [Catalytic activity/Vol] 23 U/L Normal 0-40 [facility] Comment on above: Performed By: #### P INR, 54235-4, 33360-3, CBCA, 73329-6, CMP, 4548-4, 6873-4 #### [facility] ([id number]) [address] [place] [address] 64497 #### HA1C #### [facility] ([id number]) [address] [facility], [address] [place] [address] Anion gap [Moles/Vol] 9 mmol/L Normal 5-15 [facility] Comment on above: Performed By: #### P INR, 40345-6, 21491-6, CBCA, 63643-2, CMP, 4548-4, 6873-4 #### [facility] ([id number]) [address] [place] [address] 89299 #### HA1C #### [facility] ([id number]) [address] [facility], [address] [place] [address] AST [Catalytic activity/Vol] 20 U/L Normal 0-41 [facility] Comment on above: Performed By: #### P INR, 12774-1, 31861-9, CBCA, 29738-5, CMP, 4548-4, 6873-4 #### [facility] ([id number]) [address] [place] [address] 14526 #### HA1C #### [facility] ([id number]) [address], [address] [place] [address] Bilirubin [Mass/Vol] 0.5 mg/dL Normal 0.3-1.2 [facility] Comment on above: Performed By: #### P INR, 19691-9, 08699-4, CBCA, 71449-7, CMP, 4548-4, 6873-4 #### [facility] ([id number]) [address] [place] [address] 07426 #### HA1C #### [facility] ([id number]) [address], [address] [place] [address] Calcium [Mass/Vol] 8.6 mg/dL Normal 8.5-10.5 [facility] Comment on above: Performed By: #### P INR, 82139-1, 37818-0, CBCA, 26267-4, CMP, 4548-4, 6873-4 #### [facility] ([id number]) [address] [place] [address] 59805 #### HA1C #### [facility] ([id number]) [address], [address] [place] [address] Chloride [Moles/Vol] 102 mmol/L Normal 98-109 [facility] Comment on above: Performed By: #### P INR, 97759-8, 94065-1, CBCA, 58957-4, CMP, 4548-4, 6873-4 #### [facility] ([id number]) [address] [place] [address] 11011 #### HA1C #### [facility] ([id number]) [address], [address] [place] [address] CO2 [Moles/Vol] 24 mmol/L Normal 22-32 [facility] Comment on above: Performed By: #### P INR, 21760-6, 52609-2, CBCA, 69936-8, CMP, 4548-4, 6873-4 #### [facility] ([id number]) [address] [place] [address] 54676 #### HA1C #### [facility] ([id number]) [address], [address] [place] [address] Creatinine [Mass/Vol] 1.13 mg/dL Normal 0.70-1.20 [facility] Comment on above: Result Comment: METH OD TRACEABLE TO IDMS STANDARD Performed By: #### P INR, 21222-1, 09156-5, CBCA, 10781-2, CMP, 4548-4, 6873-4 #### [facility] ([id number]) [address] [place] [address] 06241 #### HA1C #### [facility] ([id number]) [address], [address] [place] [address] GFR/1.73 sq M.predicted among non-blacks MDRD (S/P/Bld) [Vol rate/Area] 70 mL/min/{1.73_m2} Normal >59 [facility] Comment on above: Result Comment: Reported eGFR is based on the CKD-EPI 2020 equation that does not use a race coefficient. Performed By: #### P INR, 82978-9, 50030-1, CBCA, 04138-5, CMP, 4548-4, 6873-4 #### [facility] ([id number]) [address] [place] [address] 55843 #### HA1C #### [facility] ([id number]) [address], [address] [place] [address] Glucose [Mass/Vol] 133 mg/dL High 65-99 [facility] Comment on above: Performed By: #### P INR, 38499-4, 67223-1, CBCA, 89892-7, CMP, 4548-4, 6873-4 #### [facility] ([id number]) [address] [place] [address] 80908 #### HA1C #### [facility] ([id number]) [address], [address] [place] [address] Potassium [Moles/Vol] 3.5 mmol/L Normal 3.5-5.0 [facility] Comment on above: Performed By: #### P INR, 58666-3, 38994-7, CBCA, 12496-9, CMP, 4548-4, 6873-4 #### [facility] ([id number]) [address] [place] [address] 97253 #### HA1C #### [facility] ([id number]) [address], [address] [place] [address] Protein [Mass/Vol] 6.2 g/dL Normal 6.0-8.0 [facility] Comment on above: Performed By: #### P INR, 17215-4, 26992-0, CBCA, 07690-3, CMP, 4548-4, 6873-4 #### [facility] ([id number]) [address] [place] [address] 06926 #### HA1C #### [facility] ([id number]) [address], [address] [place] [address] Sodium [Moles/Vol] 135 mmol/L Normal 134-146 [facility] Comment on above: Performed By: #### P INR, 31953-8, 63263-4, CBCA, 71019-2, CMP, 4548-4, 6873-4 #### [facility] ([id number]) [address] [place] [address] 83658 #### HA1C #### [facility] ([id number]) [address], [address] [place] [address] Urea nitrogen [Mass/Vol] 52 mg/dL High 5-27 [facility] Comment on above: Performed By: #### P INR, 52026-3, 13895-0, CBCA, 70258-3, CMP, 4548-4, 6873-4 #### [facility] ([id number]) [address] [place] [address] 45708 #### HA1C #### [facility] ([id number]) [address] [facility], [address] [place] [address] Glucose Glucometer (BldC) [M ass/Vol]on 05-29-2024 Glucose [Mass/Vol] 167 mg/dL High 65-99 [facility] Glucose [Mass/Vol] 127 mg/dL High 65-99 [facility] Glucose [Mass/Vol] 168 mg/dL High 65-99 [facility] POTASSIUMon 05-29-2024 Potassium [Moles/Vol] 4.1 mmol/L Normal 3.5-5.0 [facility] Comment on above: Performed By: #### P INR, 01731-6, 42082-1, CBCA, 99160-6, CMP, 4548-4, 6873-4 #### [facility] ([id number]) [address] [place] [address] 88611 #### HA1C #### [facility] ([id number]) [address] [place] [address], [address] [place] [address] Potassium [Moles/Vol] 3.7 mmol/L Normal 3.5-5.0 [facility] Comment on above: Performed By: #### P INR, 93553-1, 24379-0, CBCA, 13710-2, CMP, 4548-4, 6873-4 #### [facility] ([id number]) [address] [place] [address] 15894 #### HA1C #### [facility] ([id number]) [address] [place] [address], [address] [place] [address] CBC AND AUTO DIFFon 05-28-20 24 ABSOLUTE BASOPHIL 0.0 X10E9/L Normal 0.0-0.2 [facility] Comment on above: Performed By: #### P INR, 76851-7, 70448-7, CBCA, 21538-5, CMP, 4548-4, 6873-4 #### [facility] ([id number]) [address] [place] [address] 79059 #### HA1C #### [facility] ([id number]) [address], [address] [place] [address] ABSOLUTE NEUTROPHIL 5.2 X10E9/L Normal 1.5-6.6 [facility] Comment on above: Performed By: #### P INR, 11411-0, 55255-0, CBCA, 70243-1, CMP, 4548-4, 6873-4 #### [facility] ([id number]) [address] [place] [address] 08173 #### HA1C #### [facility] ([id number]) [address], [address] [place] [address] Basophils/100 WBC (Bld) 0.2 % Normal [facility] Comment on above: Performed By: #### P INR, 53541-1, 18358-6, CBCA, 04299-5, CMP, 4548-4, 6873-4 #### [facility] ([id number]) [address] [place] [address] 08827 #### HA1C #### [facility] ([id number]) [address], [address] [place] [address] Eosinophils (Bld) [#/Vol] 0.1 10*3/uL Normal 0.0-0.4 [facility] Comment on above: Performed By: #### P INR, 09439-6, 88011-8, CBCA, 98656-9, CMP, 4548-4, 6873-4 #### [facility] ([id number]) [address] [place] [address] 73581 #### HA1C #### [facility] ([id number]) [address], [address] [place] [address] Eosinophils/100 WBC (Bld) 1.1 % Normal [facility] Comment on above: Performed By: #### P INR, 86928-3, 11584-3, CBCA, 86595-4, CMP, 4548-4, 6873-4 #### [facility] ([id number]) [address] [place] [address] 35462 #### HA1C #### [facility] ([id number]) [address] [facility] [address] [place] [address] Erythrocyte distribution width (RBC) [Ratio] 15.6 % High 11.5-15.0 [facility] Comment on above: Performed By: #### P INR, 79541-4, 07555-2, CBCA, 30816-0, CMP, 4548-4, 6873-4 #### [facility] ([id number]) [address] [place] [address] 32404 #### HA1C #### [facility] ([id number]) [address] [facility] [address] [place] [address] Hematocrit (Bld) [Volume fraction] 33.8 % Low 39-49 [facility] Comment on above: Performed By: #### P INR, 82318-0, 61359-2, CBCA, 33626-6, CMP, 4548-4, 6873-4 #### [facility] ([id number]) [address] [place] [address] 01134 #### HA1C #### [facility] ([id number]) [address] [facility] [facility] [address] [place] [address] Hemoglobin (Bld) [Mass/Vol] 11.2 g/dL Low 13.0-17.0 [facility] Comment on above: Performed By: #### P INR, 88039-2, 76786-8, CBCA, 29936-3, CMP, 4548-4, 6873-4 #### [facility] ([id number]) [address] [place] [address] 45389 #### HA1C #### [facility] ([id number]) [address], [address] [place] [address] Lymphocytes (Bld) [#/Vol] 0.6 10*3/uL Low 1.0-3.5 [facility] Comment on above: Performed By: #### P INR, 40865-2, 01427-6, CBCA, 46133-5, CMP, 4548-4, 6873-4 #### [facility] ([id number]) [address] [place] [address] 92755 #### HA1C #### [facility] ([id number]) [address] [facility], [address] [place] [address] Lymphocytes/100 WBC (Bld) 9.4 % Normal [facility] Comment on above: Performed By: #### P INR, 18358-6, 50245-4, CBCA, 05959-9, CMP, 4548-4, 6873-4 #### [facility] ([id number]) [address] [place] [address] 15339 #### HA1C #### [facility] ([id number]) [address], [address] [place] [address] MCH (RBC) [Entitic mass] 27.4 pg Normal 27-34 [facility] Comment on above: Performed By: #### P INR, 92112-5, 84019-1, CBCA, 20588-8, CMP, 4548-4, 6873-4 #### [facility] ([id number]) [address] [place] [address] 14033 #### HA1C #### [facility] ([id number]) [address] [facility], [address] [place] [address] MCHC (RBC) [Mass/Vol] 33.2 g/dL Normal 32-36 [facility] Comment on above: Performed By: #### P INR, 83830-1, 41845-3, CBCA, 39052-7, CMP, 4548-4, 6873-4 #### [facility] ([id number]) [address] [place] [address] 56483 #### HA1C #### [facility] ([id number]) [address] [facility], [address] [place] [address] MCV (RBC) [Entitic vol] 83 fL Normal 80-100 [facility] Comment on above: Performed By: #### P INR, 91754-2, 11692-0, CBCA, 96762-2, CMP, 4548-4, 6873-4 #### [facility] ([id number]) [address] [place], [place] [address] #### HA1C #### [facility] ([id number]) [address] [facility], [address] [place] [address] Monocytes (Bld) [#/Vol] 0.6 10*3/uL Normal 0-0.9 [facility] Comment on above: Performed By: #### P INR, 27984-4, 35513-9, CBCA, 38903-5, CMP, 4548-4, 6873-4 #### [facility] ([id number]) [address] [place] [address] 93819 #### HA1C #### [facility] ([id number]) [address] [place] [address], [address] [place] [address] Monocytes/100 WBC (Bld) 9.1 % Normal [facility] Comment on above: Performed By: #### P INR, 42470-5, 59526-3, CBCA, 83893-2, CMP, 4548-4, 6873-4 #### [facility] ([id number]) [address] [place] [address] 32345 #### HA1C #### [facility] ([id number]) [address], [address] [place] [address] Neutrophils/100 WBC (Bld) 80.2 % Normal [facility] Comment on above: Performed By: #### P INR, 56349-9, 89906-6, CBCA, 38291-7, CMP, 4548-4, 6873-4 #### [facility] ([id number]) [address] [place] [address] 78591 #### HA1C #### [facility] ([id number]) [address], [address] [place] [address] Platelet mean volume (Bld) [Entitic vol] 7.8 fL Normal 7-12 [facility] Comment on above: Performed By: #### P INR, 26331-1, 69226-1, CBCA, 76008-8, CMP, 4548-4, 6873-4 #### [facility] ([id number]) [address] [place] [address] 28000 #### HA1C #### [facility] ([id number]) [address], [address] [place] [address] Platelets (Bld) [#/Vol] 263 10*3/uL Normal 150-450 [facility] Comment on above: Performed By: #### P INR, 34325-1, 00569-9, CBCA, 01988-7, CMP, 4548-4, 6873-4 #### [facility] ([id number]) [address] [place] [address] 27363 #### HA1C #### [facility] ([id number]) [address], [address] [place] [address] RBC COUNT 4.09 X10E12/L Low 4.10-5.70 [facility] Comment on above: Performed By: #### P INR, 42994-4, 19703-4, CBCA, 98395-2, CMP, 4548-4, 6873-4 #### [facility] ([id number]) [address] [place] [address] 87604 #### HA1C #### [facility] ([id number]) [address] [facility], [address] [place] [address] WBC (Bld) [#/Vol] 6.5 10*3/uL Normal 4.0-11.0 [facility] Comment on above: Performed By: #### P INR, 73044-0, 83485-0, CBCA, 47695-6, CMP, 4548-4, 6873-4 #### [facility] ([id number]) [address] [place] [address] 01392 #### HA1C #### [facility] ([id number]) [address] [facility], [address] [place] [address] COMPREHENSIVE METABOLIC PANE [place] 05-28-2024 Albumin [Mass/Vol] 3.6 g/dL Normal 3.2-5.3 [facility] Comment on above: Performed By: #### P INR, 30281-3, 99980-0, CBCA, 31283-8, CMP, 4548-4, 6873-4 #### [facility] ([id number]) [address] [place] [address] 48073 #### HA1C #### [facility] ([id number]) [address] [facility], [address] [place] [address] ALP [Catalytic activity/Vol] 91 U/L Normal 39-130 [facility] Comment on above: Performed By: #### P INR, 16803-1, 74269-0, CBCA, 86581-5, CMP, 4548-4, 6873-4 #### [facility] ([id number]) [address] [place] [address] 43449 #### HA1C #### [facility] ([id number]) [address], [address] [place] [address] ALT [Catalytic activity/Vol] 21 U/L Normal 0-40 [facility] Comment on above: Performed By: #### P INR, 84394-7, 13430-3, CBCA, 95459-6, CMP, 4548-4, 6873-4 #### [facility] ([id number]) [address] [place] [address] 95716 #### HA1C #### [facility] ([id number]) [address], [address] [place] [address] Anion gap [Moles/Vol] 12 mmol/L Normal 5-15 [facility] Comment on above: Performed By: #### P INR, 42430-4, 39473-0, CBCA, 99324-5, CMP, 4548-4, 6873-4 #### [facility] ([id number]) [address] [place] [address] 69984 #### HA1C #### [facility] ([id number]) [address], [address] [place] [address] AST [Catalytic activity/Vol] 18 U/L Normal 0-41 [facility] Comment on above: Performed By: #### P INR, 78133-2, 72759-3, CBCA, 60568-5, CMP, 4548-4, 6873-4 #### [facility] ([id number]) [address] [place] [address] 76611 #### HA1C #### [facility] ([id number]) [address], [address] [place] [address] Bilirubin [Mass/Vol] 0.7 mg/dL Normal 0.3-1.2 [facility] Comment on above: Performed By: #### P INR, 73628-1, 57505-1, CBCA, 35184-0, CMP, 4548-4, 6873-4 #### [facility] ([id number]) [address] [place] [address] 23513 #### HA1C #### [facility] ([id number]) [address] [place] [address] Calcium [Mass/Vol] 8.9 mg/dL Normal 8.5-10.5 [facility] Comment on above: Performed By: #### P INR, 27541-2, 33831-7, CBCA, 96605-4, CMP, 4548-4, 6873-4 #### [facility] ([id number]) [address] [place] [address] #### HA1C #### [facility] ([id number]) [address], [address] [place] [address] Chloride [Moles/Vol] 98 mmol/L Normal 98-109 [facility] Comment on above: Performed By: #### P INR, 38480-2, 50752-1, CBCA, 98627-9, CMP, 4548-4, 6873-4 #### [facility] ([id number]) [address] [place] [address] #### HA1C #### [facility] ([id number]) [address], [address] [place] [address] CO2 [Moles/Vol] 23 mmol/L Normal 22-32 [facility] Comment on above: Performed By: #### P INR, 05891-1, 56447-6, CBCA, 86864-8, CMP, 4548-4, 6873-4 #### [facility] ([id number]) [address] [place] [address] #### HA1C #### [facility] ([id number]) [address], [address] [place] [address] Creatinine [Mass/Vol] 1.88 mg/dL High 0.70-1.20 [facility] Comment on above: Result Comment: METH OD TRACEABLE TO IDMS STANDARD Performed By: #### P INR, 18621-7, 05597-3, CBCA, 90364-3, CMP, 4548-4, 6873-4 #### [facility] ([id number]) [address] [place] [address] #### HA1C #### [facility] ([id number]) [address] [facility] [address], [address] [place] [address] GFR/1.73 sq M.predicted among non-blacks MDRD (S/P/Bld) [Vol rate/Area] 38 mL/min/{1.73_m2} Low >59 [facility] Comment on above: Result Comment: Reported eGFR is based on the CKD-EPI 2020 equation that does not use a race coefficient. Performed By: #### P INR, 01327-8, 45553-3, CBCA, 81035-1, CMP, 4548-4, 6873-4 #### [facility] ([id number]) [address] [place] [address] #### HA1C #### [facility] ([id number]) [address], [address] [place] [address] Glucose [Mass/Vol] 157 mg/dL High 65-99 [facility] Comment on above: Performed By: #### P INR, 99231-2, 60711-0, CBCA, 10173-8, CMP, 4548-4, 6873-4 #### [facility] ([id number]) [address] [place] [address] #### HA1C #### [facility] ([id number]) [address], [address] [place] [address] Potassium [Moles/Vol] 3.6 mmol/L Normal 3.5-5.0 [facility] Comment on above: Performed By: #### P INR, 51713-6, 17571-4, CBCA, 70087-4, CMP, 4548-4, 6873-4 #### [facility] ([id number]) [address] [place] [address] #### HA1C #### [facility] ([id number]) [address], [address] [place] [address] Protein [Mass/Vol] 6.8 g/dL Normal 6.0-8.0 [facility] Comment on above: Performed By: #### P INR, 59369-7, 48386-8, CBCA, 42670-2, CMP, 4548-4, 6873-4 #### [facility] ([id number]) [address] [place] [address] #### HA1C #### [facility] ([id number]) [address], [address] [place] [address] Sodium [Moles/Vol] 133 mmol/L Low 134-146 [facility] Comment on above: Performed By: #### P INR, 49659-8, 31408-6, CBCA, 24128-4, CMP, 4548-4, 6873-4 #### [facility] ([id number]) [address] [place] [address] #### HA1C #### [facility] ([id number]) [address], [address] [place] [address] Urea nitrogen [Mass/Vol] 87 mg/dL High 5-27 [facility] Comment on above: Performed By: #### P INR, 36609-8, 55677-6, CBCA, 16204-5, CMP, 4548-4, 6873-4 #### [facility] ([id number]) [address] [place] [address] #### HA1C #### [facility] [facility] ([id number]) [address], [address] [place] [address] Glucose Glucometer (BldC) [M ass/Vol]on 05-28-2024 Glucose [Mass/Vol] 148 mg/dL High 65-99 [facility] Glucose [Mass/Vol] 174 mg/dL High 65-99 [facility] Glucose [Mass/Vol] 177 mg/dL High 65-99 [facility] MAGNESIUMon 05-28-2024 Magnesium [Mass/Vol] 2.1 mg/dL Normal 1.8-2.6 [facility] Comment on above: Performed By: #### P INR, 04541-7, 42562-6, CBCA, 61520-9, CMP, 4548-4, 6873-4 #### [facility] ([id number]) [address] [place] [address] 25566 #### HA1C #### [facility] ([id number]) [facility], [address] [place] [address] PHOSPHORUSon 05-28-2024 Phosphate [Mass/Vol] 4.4 mg/dL Normal 2.4-4.9 [facility] Comment on above: Performed By: #### P INR, 19884-1, 19267-6, CBCA, 97142-3, CMP, 4548-4, 6873-4 #### [facility] ([id number]) [address] [place] [address] 85613 #### HA1C #### [facility] ([id number]) [address] [address], [address] [place] [address] POTASSIUMon 05-28-2024 Potassium [Moles/Vol] 3.6 mmol/L Normal 3.5-5.0 [facility] Comment on above: Performed By: #### P INR, 95220-4, 23422-5, CBCA, 81239-9, CMP, 4548-4, 6873-4 #### [facility] ([id number]) [address] [place] [address] 50098 #### HA1C #### [facility] ([id number]) [address] [facility] [facility] [address], [address] [place] [address] CBC AND AUTO DIFFon 05-27-20 24 ABSOLUTE BASOPHIL 0.0 X10E9/L Normal 0.0-0.2 [facility] Comment on above: Performed By: #### P INR, 09164-0, 24661-5, CBCA, 97729-4, CMP, 4548-4, 6873-4 #### [facility] ([id number]) [address] [place] [address] 02161 #### HA1C #### [facility] ([id number]) [address] [facility] [facility], [address] [place] [address] ABSOLUTE NEUTROPHIL 12.1 X10E9/L High 1.5-6.6 [facility] Comment on above: Performed By: #### P INR, 00721-0, 13694-9, CBCA, 53486-9, CMP, 4548-4, 6873-4 #### [facility] ([id number]) [address] [place] [address] 69468 #### HA1C #### [facility] ([id number]) [address] [facility] [facility] [address], [address] [place] [address] Basophils/100 WBC (Bld) 0.3 % Normal [facility] Comment on above: Performed By: #### P INR, 98086-1, 51758-0, CBCA, 20265-3, CMP, 4548-4, 6873-4 #### [facility] ([id number]) [address] [place] [address] 87640 #### HA1C #### [facility] ([id number]) [address], [address] [place] [address] Eosinophils (Bld) [#/Vol] 0.0 10*3/uL Normal 0.0-0.4 [facility] Comment on above: Performed By: #### P INR, 55688-3, 72990-9, CBCA, 58836-0, CMP, 4548-4, 6873-4 #### [facility] ([id number]) [address] [place] [address] 91924 #### HA1C #### [facility] ([id number]) [address], [address] [place] [address] Eosinophils/100 WBC (Bld) 0.2 % Normal [facility] Comment on above: Performed By: #### P INR, 14772-4, 57957-5, CBCA, 57794-8, CMP, 4548-4, 6873-4 #### [facility] ([id number]) [address] [place] [address] 48779 #### HA1C #### [facility] ([id number]) [address], [address] [place] [address] Erythrocyte distribution width (RBC) [Ratio] 16.2 % High 11.5-15.0 [facility] Comment on above: Performed By: #### P INR, 82059-4, 25706-7, CBCA, 74352-3, CMP, 4548-4, 6873-4 #### [facility] ([id number]) [address] [place] [address] 02435 #### HA1C #### [facility] ([id number]) [address], [address] [place] [address] Hematocrit (Bld) [Volume fraction] 39.5 % Normal 39-49 [facility] Comment on above: Performed By: #### P INR, 04321-5, 16156-5, CBCA, 56264-3, CMP, 4548-4, 6873-4 #### [facility] ([id number]) [address] [place] [address] 41739 #### HA1C #### [facility] ([id number]) [address], [address] [place] [address] Hemoglobin (Bld) [Mass/Vol] 13.2 g/dL Normal 13.0-17.0 [facility] Comment on above: Performed By: #### P INR, 58570-9, 90598-6, CBCA, 72113-4, CMP, 4548-4, 6873-4 #### [facility] ([id number]) [address] [place] [address] 19995 #### HA1C #### [facility] ([id number]) [address], [address] [place] [address] Lymphocytes (Bld) [#/Vol] 0.4 10*3/uL Low 1.0-3.5 [facility] Comment on above: Performed By: #### P INR, 58306-4, 33918-7, CBCA, 14079-8, CMP, 4548-4, 6873-4 #### [facility] ([id number]) [address] [place] [address] 73752 #### HA1C #### [facility] ([id number]) [address], [address] [place] [address] Lymphocytes/100 WBC (Bld) 3.2 % Normal [facility] Comment on above: Performed By: #### P INR, 44627-8, 27957-2, CBCA, 82822-8, CMP, 4548-4, 6873-4 #### [facility] ([id number]) [address] [place] [address] 32949 #### HA1C #### [facility] ([id number]) [address], [address] [place] [address] MCH (RBC) [Entitic mass] 27.5 pg Normal 27-34 [facility] Comment on above: Performed By: #### P INR, 56979-7, 70094-7, CBCA, 24664-8, CMP, 4548-4, 6873-4 #### [facility] ([id number]) [address] [place] [address] 99349 #### HA1C #### [facility] ([id number]) [address] [facility], [address] [place] [address] MCHC (RBC) [Mass/Vol] 33.4 g/dL Normal 32-36 [facility] Comment on above: Performed By: #### P INR, 09748-0, 94190-7, CBCA, 57369-7, CMP, 4548-4, 6873-4 #### [facility] ([id number]) [address] [place] [address] 96073 #### HA1C #### [facility] ([id number]) [address], [address] [place] [address] MCV (RBC) [Entitic vol] 82 fL Normal 80-100 [facility] Comment on above: Performed By: #### P INR, 72615-2, 75940-0, CBCA, 56856-9, CMP, 4548-4, 6873-4 #### [facility] ([id number]) [address] [place] [address] 98617 #### HA1C #### [facility] ([id number]) [address], [address] [place] [address] Monocytes (Bld) [#/Vol] 1.0 10*3/uL High 0-0.9 [facility] Comment on above: Performed By: #### P INR, 18045-6, 24766-6, CBCA, 12543-3, CMP, 4548-4, 6873-4 #### [facility] ([id number]) [address] [place] [address] 71589 #### HA1C #### [facility] ([id number]) [address], [address] [place] [address] Monocytes/100 WBC (Bld) 7.1 % Normal [facility] Comment on above: Performed By: #### P INR, 82545-7, 45712-5, CBCA, 60185-9, CMP, 4548-4, 6873-4 #### [facility] ([id number]) [address] [place] [address] 55870 #### HA1C #### [facility] ([id number]) [address], [address] [place] [address] Neutrophils/100 WBC (Bld) 89.2 % Normal [facility] Comment on above: Performed By: #### P INR, 07659-5, 10644-1, CBCA, 51677-5, CMP, 4548-4, 6873-4 #### [facility] ([id number]) [address] [place] [address] 51476 #### HA1C #### [facility] ([id number]) [address], [address] [place] [address] Platelet mean volume (Bld) [Entitic vol] 8.0 fL Normal 7-12 [facility] Comment on above: Performed By: #### P INR, 36412-4, 70109-6, CBCA, 21193-9, CMP, 4548-4, 6873-4 #### [facility] ([id number]) [address] [place] [address] 03037 #### HA1C #### [facility] ([id number]) [address], [address] [place] [address] Platelets (Bld) [#/Vol] 296 10*3/uL Normal 150-450 [facility] Comment on above: Performed By: #### P INR, 96428-5, 93792-7, CBCA, 85061-3, CMP, 4548-4, 6873-4 #### [facility] ([id number]) [address] [place] [address] 35468 #### HA1C #### [facility] ([id number]) [address], [address] [place] [address] RBC COUNT 4.79 X10E12/L Normal 4.10-5.70 [facility] Comment on above: Performed By: #### P INR, 94926-0, 58871-2, CBCA, 78515-9, CMP, 4548-4, 6873-4 #### [facility] ([id number]) [address] [place] [address] 53677 #### HA1C #### [facility] ([id number]) [address], [address] [place] [address] WBC (Bld) [#/Vol] 13.5 10*3/uL High 4.0-11.0 [facility] Comment on above: Performed By: #### P INR, 18379-4, 16618-2, CBCA, 86342-0, CMP, 4548-4, 6873-4 #### [facility] ([id number]) [address] [place] [address] 53694 #### HA1C #### [facility] ([id number]) [address], [address] [place] [address] COMPREHENSIVE METABOLIC PANE [place] 05-27-2024 Albumin [Mass/Vol] 4.6 g/dL Normal 3.2-5.3 [facility] Comment on above: Performed By: #### P INR, 65073-2, 18051-9, CBCA, 71165-5, CMP, 4548-4, 6873-4 #### [facility] ([id number]) [address] [place] [address] 46889 #### HA1C #### [facility] ([id number]) [address], [address] [place] [address] ALP [Catalytic activity/Vol] 112 U/L Normal 39-130 [facility] Comment on above: Performed By: #### P INR, 65674-2, 57518-8, CBCA, 11181-8, CMP, 4548-4, 6873-4 #### [facility] ([id number]) [address] [place] [address] 33724 #### HA1C #### [facility] ([id number]) [address], [address] [place] [address] ALT [Catalytic activity/Vol] 23 U/L Normal 0-40 [facility] Comment on above: Performed By: #### P INR, 96759-7, 56246-6, CBCA, 10703-7, CMP, 4548-4, 6873-4 #### [facility] ([id number]) [address] [place] [address] 14731 #### HA1C #### [facility] ([id number]) [address], [address] [place] [address] Anion gap [Moles/Vol] 13 mmol/L Normal 5-15 [facility] Comment on above: Performed By: #### P INR, 63467-8, 89720-7, CBCA, 23621-4, CMP, 4548-4, 6873-4 #### [facility] ([id number]) [address] [place] [address] 55982 #### HA1C #### [facility] ([id number]) [address], [address] [place] [address] AST [Catalytic activity/Vol] 21 U/L Normal 0-41 [facility] Comment on above: Performed By: #### P INR, 04837-3, 40590-2, CBCA, 16438-8, CMP, 4548-4, 6873-4 #### [facility] ([id number]) [address] [place] [address] 75172 #### HA1C #### [facility] ([id number]) [address] [facility] [address], [address] [place] [address] Bilirubin [Mass/Vol] 0.7 mg/dL Normal 0.3-1.2 [facility] Comment on above: Performed By: #### P INR, 27028-4, 87902-8, CBCA, 13492-5, CMP, 4548-4, 6873-4 #### [facility] ([id number]) [address] [place] [address] 91270 #### HA1C #### [facility] ([id number]) [address] [facility] [address], [address] [place] [address] Calcium [Mass/Vol] 9.6 mg/dL Normal 8.5-10.5 [facility] Comment on above: Performed By: #### P INR, 08276-8, 51751-4, CBCA, 27097-7, CMP, 4548-4, 6873-4 #### [facility] ([id number]) [address] [place] [address] 55124 #### HA1C #### [facility] ([id number]) [address], [address] [place] [address] Chloride [Moles/Vol] 94 mmol/L Low 98-109 [facility] Comment on above: Performed By: #### P INR, 99647-6, 33693-0, CBCA, 90867-5, CMP, 4548-4, 6873-4 #### [facility] ([id number]) [address] [place] [address] 75940 #### HA1C #### [facility] ([id number]) [address], [address] [place] [address] CO2 [Moles/Vol] 21 mmol/L Low 22-32 [facility] Comment on above: Performed By: #### P INR, 81833-0, 38828-8, CBCA, 24367-1, CMP, 4548-4, 6873-4 #### [facility] ([id number]) [address] [place] [address] 92099 #### HA1C #### [facility] ([id number]) [address], [address] [place] [address] Creatinine [Mass/Vol] 2.75 mg/dL High 0.70-1.20 [facility] Comment on above: Result Comment: METH OD TRACEABLE TO IDMS STANDARD Performed By: #### P INR, 14310-1, 71948-4, CBCA, 33916-5, CMP, 4548-4, 6873-4 #### [facility] ([id number]) [address] [place] [address] 08789 #### HA1C #### [facility] ([id number]) [address], [address] [place] [address] GFR/1.73 sq M.predicted among non-blacks MDRD (S/P/Bld) [Vol rate/Area] 24 mL/min/{1.73_m2} Low >59 [facility] Comment on above: Result Comment: Reported eGFR is based on the CKD-EPI 2020 equation that does not use a race coefficient. Performed By: #### P INR, 28638-8, 79007-4, CBCA, 53418-1, CMP, 4548-4, 6873-4 #### [facility] ([id number]) [address] [place] [address] 95243 #### HA1C #### [facility] ([id number]) [address], [address] [place] [address] Glucose [Mass/Vol] 223 mg/dL High 65-99 [facility] Comment on above: Performed By: #### P INR, 54990-3, 79165-9, CBCA, 56959-7, CMP, 4548-4, 6873-4 #### [facility] ([id number]) [address] [place] [address] 84894 #### HA1C #### [facility] ([id number]) [address], [address] [place] [address] Potassium [Moles/Vol] 4.9 mmol/L Normal 3.5-5.0 [facility] Comment on above: Performed By: #### P INR, 78926-6, 91356-6, CBCA, 98210-9, CMP, 4548-4, 6873-4 #### [facility] ([id number]) [address] [place] [address] 38060 #### HA1C #### [facility] ([id number]) [address], [address] [place] [address] Protein [Mass/Vol] 8.2 g/dL High 6.0-8.0 [facility] Comment on above: Performed By: #### P INR, 67112-7, 21726-8, CBCA, 39020-7, CMP, 4548-4, 6873-4 #### [facility] ([id number]) [address] [place] [address] 08795 #### HA1C #### [facility] ([id number]) [address], [address] [place] [address] Sodium [Moles/Vol] 128 mmol/L Low 134-146 [facility] Comment on above: Performed By: #### P INR, 75797-8, 95837-6, CBCA, 68571-4, CMP, 4548-4, 6873-4 #### [facility] ([id number]) [address] [place] [address] 39997 #### HA1C #### [facility] ([id number]) [address] [facility] [facility] [address], [address] [place] [address] Urea nitrogen [Mass/Vol] 106 mg/dL High 5-27 [facility] Comment on above: Performed By: #### P INR, 74089-2, 95477-4, CBCA, 04505-2, CMP, 4548-4, 6873-4 #### [facility] ([id number]) [address] [place] [address] 80376 #### HA1C #### [facility] ([id number]) [address], [address] [place] [address] Glucose Glucometer (BldC) [M ass/Vol]on 05-27-2024 Glucose [Mass/Vol] 170 mg/dL High 65-99 [facility] MAGNESIUMon 05-27-2024 Magnesium [Mass/Vol] 2.4 mg/dL Normal 1.8-2.6 [facility] Comment on above: Performed By: #### P INR, 45884-5, 55734-2, CBCA, 41395-0, CMP, 4548-4, 6873-4 #### [facility] ([id number]) [address] [place] [address] 09138 #### HA1C #### [facility] ([id number]) [address], [address] [place] [address] Troponin I.cardiac High sens itivity method [Mass/Vol]on 05-27-2024 1 HOUR TROP I, HIGH SENSITIVITY 11 ng/L Normal <21 [facility] Comment on above: Performed By: #### P INR, 73016-7, 38976-2, CBCA, 35452-9, CMP, 4548-4, 6873-4 #### [facility] ([id number]) [address] [place] [address] 14690 #### HA1C #### [facility] ([id number]) [address] [facility] [facility], [address] [place] [address] TROPONIN I, HIGH SENSITIVITY 10 ng/L Normal <21 [facility] Comment on above: Performed By: #### P INR, 35624-2, 54985-0, CBCA, 60852-6, CMP, 4548-4, 6873-4 #### [facility] ([id number]) [address] [place] [address] 66880 #### HA1C #### [facility] ([id number]) [address] [facility], [address] [place] [address] URN MACROSCOPIC NURon 2023 BILIRUBIN ALLYN Negative Normal NEG [facility] Comment on above: Performed By: #### P INR, 30896-2, 36397-3, CBCA, 26563-0, CMP, 4548-4, 6873-4 #### [facility] ([id number]) [address] [place] [address] 99828 #### HA1C #### [facility] ([id number]) [address] [facility], [address] [place] [address] BLOOD/HGB ALLYN Large Abnormal NEG [facility] Comment on above: Performed By: #### P INR, 15451-0, 83331-0, CBCA, 68243-0, CMP, 4548-4, 6873-4 #### [facility] ([id number]) [address] [place] [address] 86279 #### HA1C #### [facility] ([id number]) [address] [facility], [address] [place] [address] GLUCOSE ALLYN Negative Normal NEG [facility] Comment on above: Performed By: #### P INR, 49256-1, 88154-1, CBCA, 04818-3, CMP, 4548-4, 6873-4 #### [facility] ([id number]) [address] [place] [address] 82485 #### HA1C #### [facility] ([id number]) [address] [facility], [address] [place] [address] KETONES ALLYN Negative Normal NEG [facility] Comment on above: Performed By: #### P INR, 47667-1, 62212-6, CBCA, 25305-1, CMP, 4548-4, 6873-4 #### [facility] ([id number]) [address] [place] [address] 50253 #### HA1C #### [facility] ([id number]) [address] [place] [address], [address] [place] [address] LEUKOCYTE ESTERASE ALLYN Negative Normal NEG [facility] Comment on above: Performed By: #### P INR, 60470-7, 57816-1, CBCA, 63170-2, CMP, 4548-4, 6873-4 #### [facility] ([id number]) [address] [place] [address] 58554 #### HA1C #### [facility] ([id number]) [address] [place] [address], [address] [place] [address] NITRITE ALLYN Negative Normal NEG [facility] Comment on above: Performed By: #### P INR, 92340-1, 79395-0, CBCA, 47844-4, CMP, 4548-4, 6873-4 #### [facility] ([id number]) [address] [place] [address] 03208 #### HA1C #### [facility] ([id number]) [address] [place] [address], [address] [place] [address] PH ALLYN 5.5 Normal 5.0-8.5 [facility] Comment on above: Performed By: #### P INR, 58657-5, 97238-3, CBCA, 58003-1, CMP, 4548-4, 6873-4 #### [facility] ([id number]) [address] [place] [address] 70131 #### HA1C #### [facility] ([id number]) [address] [place] [address], [address] [place] [address] PROTEIN ALLYN 30 mg/dL Abnormal NEG [facility] Comment on above: Performed By: #### P INR, 53175-3, 06762-2, CBCA, 58974-8, CMP, 4548-4, 6873-4 #### [facility] ([id number]) [address] [place] [address] 73168 #### HA1C #### [facility] ([id number]) [address] [place] [address], [address] [place] [address] SPECIFIC GRAVITY ALLYN 1.025 Normal 1.003-1 .03 5 [facility] Comment on above: Performed By: #### P INR, 63346-4, 50668-0, CBCA, 49995-6, CMP, 4548-4, 6873-4 #### [facility] ([id number]) [address] [place] [address] 04169 #### HA1C #### [facility] ([id number]) [address] [place] [address], [address] [place] [address] UROBILINOGEN ALLYN 0.2 eu/dL Normal <1.1 [facility] Comment on above: Performed By: #### P INR, 13839-8, 05882-5, CBCA, 18685-8, CMP, 4548-4, 6873-4 #### [facility] ([id number]) [address] [place] [address] 59478 #### HA1C #### [facility] ([id number]) [address] [place] [address] BASIC METABOLIC PANLon 05-12 Anion gap [Moles/Vol] 8 mmol/L Normal 5-15 [facility] Comment on above: Performed By: #### P INR, 15853-1, 23157-7, CBCA, 27811-2, CMP, 4548-4, 6873-4 #### [facility] ([id number]) [address] [place] [address] #### HA1C #### [facility] ([id number]) [address], [address] [place] [address] Calcium [Mass/Vol] 8.9 mg/dL Normal 8.5-10.5 [facility] Comment on above: Performed By: #### P INR, 17391-6, 66215-8, CBCA, 89167-3, CMP, 4548-4, 6873-4 #### [facility] ([id number]) [address] [place] [address] #### HA1C #### [facility] ([id number]) [address], [address] [place] [address] Chloride [Moles/Vol] 102 mmol/L Normal 98-109 [facility] Comment on above: Performed By: #### P INR, 10702-5, 26701-8, CBCA, 29503-8, CMP, 4548-4, 6873-4 #### [facility] ([id number]) [address] [place] [address] #### HA1C #### [facility] ([id number]) [address], [address] [place] [address] CO2 [Moles/Vol] 26 mmol/L Normal 22-32 [facility] Comment on above: Performed By: #### P INR, 09997-2, 42759-5, CBCA, 29279-1, CMP, 4548-4, 6873-4 #### [facility] ([id number]) [address] [place] [address] #### HA1C #### [facility] ([id number]) [address] [place] [address] Creatinine [Mass/Vol] 0.68 mg/dL Low 0.70-1.20 [facility] Comment on above: Result Comment: METH OD TRACEABLE TO IDMS STANDARD Performed By: #### P INR, 50311-1, 24747-8, CBCA, 33110-1, CMP, 4548-4, 6873-4 #### [facility] ([id number]) [address] [place] [address] #### HA1C #### [facility] ([id number]) [address], [address] [place] [address] eGFR (CKD-EPI) NON-RACE DEPENDENT >90 Normal >59 [facility] Comment on above: Result Comment: Reported eGFR is based on the CKD-EPI 2021 equation that does not use a race coefficient. Performed By: #### P INR, 97342-6, 10374-2, CBCA, 40798-4, CMP, 4548-4, 6873-4 #### [facility] ([id number]) [address] [place] [address] #### HA1C #### [facility] ([id number]) [address], [address] [place] [address] Glucose [Mass/Vol] 143 mg/dL High 65-99 [facility] Comment on above: Performed By: #### P INR, 07512-7, 35586-6, CBCA, 31340-4, CMP, 4548-4, 6873-4 #### [facility] ([id number]) [address] [place] [address] #### HA1C #### [facility] ([id number]) [address], [address] [place] [address] Potassium [Moles/Vol] 3.7 mmol/L Normal 3.5-5.0 [facility] Comment on above: Performed By: #### P INR, 70743-7, 32614-0, CBCA, 09896-0, CMP, 4548-4, 6873-4 #### [facility] ([id number]) [address] [place] [address] #### HA1C #### [facility] ([id number]) [address], [address] [place] [address] Sodium [Moles/Vol] 136 mmol/L Normal 134-146 [facility] Comment on above: Performed By: #### P INR, 49790-2, 82794-2, CBCA, 71482-1, CMP, 4548-4, 6873-4 #### [facility] ([id number]) [address] [place] [address] #### HA1C #### [facility] ([id number]) [address], [address] [place] [address] Urea nitrogen [Mass/Vol] 22 mg/dL Normal 5-27 [facility] Comment on above: Performed By: #### P INR, 69442-5, 75888-6, CBCA, 88459-0, CMP, 4548-4, 6873-4 #### [facility] ([id number]) [address] [place] [address] #### HA1C #### [facility] [facility] ([id number]) [address], [address] [place] [address] CBC AND AUTO DIFFon 05-12-20 24 ABSOLUTE BASOPHIL 0.1 X10E9/L Normal 0.0-0.2 [facility] Comment on above: Performed By: #### P INR, 18773-7, 39282-8, CBCA, 29133-9, CMP, 4548-4, 6873-4 #### [facility] ([id number]) [address] [place] [address] #### HA1C #### [facility] ([id number]) [address] [facility], [address] [place] [address] ABSOLUTE NEUTROPHIL 2.2 X10E9/L Normal 1.5-6.6 [facility] Comment on above: Performed By: #### P INR, 53497-3, 23105-5, CBCA, 73172-0, CMP, 4548-4, 6873-4 #### [facility] ([id number]) [address] [place] [address] 36973 #### HA1C #### [facility] ([id number]) [address], [address] [place] [address] Basophils/100 WBC (Bld) 1.7 % Normal [facility] Comment on above: Performed By: #### P INR, 25718-9, 77943-4, CBCA, 01751-9, CMP, 4548-4, 6873-4 #### [facility] ([id number]) [address] [place] [address] 39323 #### HA1C #### [facility] ([id number]) [address], [address] [place] [address] Eosinophils (Bld) [#/Vol] 0.1 10*3/uL Normal 0.0-0.4 [facility] Comment on above: Performed By: #### P INR, 72513-0, 76276-6, CBCA, 26763-7, CMP, 4548-4, 6873-4 #### [facility] ([id number]) [address] [place] [address] 21962 #### HA1C #### [facility] ([id number]) [address], [address] [place] [address] Eosinophils/100 WBC (Bld) 3.2 % Normal [facility] Comment on above: Performed By: #### P INR, 84078-5, 71011-1, CBCA, 84828-8, CMP, 4548-4, 6873-4 #### [facility] ([id number]) [address] [place] [address] 43730 #### HA1C #### [facility] ([id number]) [address] [facility], [address] [place] [address] Erythrocyte distribution width (RBC) [Ratio] 15.2 % High 11.5-15.0 [facility] Comment on above: Performed By: #### P INR, 83048-8, 78656-7, CBCA, 89420-3, CMP, 4548-4, 6873-4 #### [facility] ([id number]) [address] [place] [address] #### HA1C #### [facility] ([id number]) [address], [address] [place] [address] Hematocrit (Bld) [Volume fraction] 33.1 % Low 39-49 [facility] Comment on above: Performed By: #### P INR, 45722-4, 00223-0, CBCA, 23344-4, CMP, 4548-4, 6873-4 #### [facility] ([id number]) [address] [place] [address] 177[address] #### HA1C #### [facility] ([id number]) [address], [address] [place] [address] Hemoglobin (Bld) [Mass/Vol] 11.3 g/dL Low 13.0-17.0 [facility] Comment on above: Performed By: #### P INR, 78403-3, 43496-8, CBCA, 10097-4, CMP, 4548-4, 6873-4 #### [facility] ([id number]) [address] [place] [address] 51899 #### HA1C #### [facility] ([id number]) [address], [address] [place] [address] Lymphocytes (Bld) [#/Vol] 1.5 10*3/uL Normal 1.0-3.5 [facility] Comment on above: Performed By: #### P INR, 20164-2, 06128-3, CBCA, 69248-5, CMP, 4548-4, 6873-4 #### [facility] ([id number]) [address] [place] [address] 39209 #### HA1C #### [facility] ([id number]) [address], [address] [place] [address] Lymphocytes/100 WBC (Bld) 35.4 % Normal [facility] Comment on above: Performed By: #### P INR, 82786-2, 00340-6, CBCA, 23320-4, CMP, 4548-4, 6873-4 #### [facility] ([id number]) [address] [place] [address] 45807 #### HA1C #### [facility] ([id number]) [address], [address] [place] [address] MCH (RBC) [Entitic mass] 28.9 pg Normal 27-34 [facility] Comment on above: Performed By: #### P INR, 70342-6, 11504-2, CBCA, 74079-0, CMP, 4548-4, 6873-4 #### [facility] ([id number]) [address] [place] [address]508 #### HA1C #### [facility] ([id number]) [address], [address] [place] [address] MCHC (RBC) [Mass/Vol] 34.2 g/dL Normal 32-36 [facility] Comment on above: Performed By: #### P INR, 10501-6, 84893-4, CBCA, 96039-5, CMP, 4548-4, 6873-4 #### [facility] ([id number]) [address] [place] [address] 42375 #### HA1C #### [facility] ([id number]) [address], [address] [place] [address] MCV (RBC) [Entitic vol] 84 fL Normal 80-100 [facility] Comment on above: Performed By: #### P INR, 30345-9, 53213-1, CBCA, 50517-3, CMP, 4548-4, 6873-4 #### [facility] ([id number]) [address] [place] [address] 38038 #### HA1C #### [facility] ([id number]) [address], [address] [place] [address] Monocytes (Bld) [#/Vol] 0.3 10*3/uL Normal 0-0.9 [facility] Comment on above: Performed By: #### P INR, 13998-8, 14436-2, CBCA, 79784-5, CMP, 4548-4, 6873-4 #### [facility] ([id number]) [address] [place] [address] 56572 #### HA1C #### [facility] ([id number]) [address], [address] [place] [address] Monocytes/100 WBC (Bld) 7.8 % Normal [facility] Comment on above: Performed By: #### P INR, 60565-7, 65785-1, CBCA, 46342-3, CMP, 4548-4, 6873-4 #### [facility] ([id number]) [address] [place] [address] 42756 #### HA1C #### [facility] ([id number]) [address] [address], [address] [place] [address] Neutrophils/100 WBC (Bld) 51.9 % Normal [facility] Comment on above: Performed By: #### P INR, 15200-2, 64704-4, CBCA, 91429-0, CMP, 4548-4, 6873-4 #### [facility] ([id number]) [address] [place] [address] 69204 #### HA1C #### [facility] ([id number]) [address], [address] [place] [address] Platelet mean volume (Bld) [Entitic vol] 7.1 fL Normal 7-12 [facility] Comment on above: Performed By: #### P INR, 89087-9, 77866-8, CBCA, 38110-8, CMP, 4548-4, 6873-4 #### [facility] ([id number]) [address] [place] [address] 12298 #### HA1C #### [facility] ([id number]) [address], [address] [place] [address] Platelets (Bld) [#/Vol] 310 10*3/uL Normal 150-450 [facility] Comment on above: Performed By: #### P INR, 33191-0, 53087-4, CBCA, 52214-2, CMP, 4548-4, 6873-4 #### [facility] ([id number]) [address] [place] [address] 91426 #### HA1C #### [facility] ([id number]) [address], [address] [place] [address] RBC COUNT 3.93 X10E12/L Low 4.10-5.70 [facility] Comment on above: Performed By: #### P INR, 09916-7, 02000-2, CBCA, 67686-0, CMP, 4548-4, 6873-4 #### [facility] ([id number]) [address] [place] [address] 91004 #### HA1C #### [facility] ([id number]) [address], [address] [place] [address] WBC (Bld) [#/Vol] 4.3 10*3/uL Normal 4.0-11.0 [facility] Comment on above: Performed By: #### P INR, 73637-8, 04777-5, CBCA, 50556-4, CMP, 4548-4, 6873-4 #### [facility] ([id number]) [address] [place] [address] 80391 #### HA1C #### [facility] ([id number]) [address], [address] [place] [address] CT BRAIN WO CONTon [address] BRAIN WO [...] Yuan MD on 05/12/2024 3:05 AM Normal [facility] PROTIME AND INRon 05-12-2024 INR Coag (PPP) [Relative time] 1.2 {INR} High 0.8-1.1 [facility] Comment on above: Performed By: #### P INR, 99501-0, 41831-1, CBCA, 22090-9, CMP, 4548-4, 6873-4 #### [facility] ([id number]) [address] [place] [address] 72565 #### HA1C #### [facility] ([id number]) [address] [place] [address], [address] [place] [address] PT Coag (PPP) [Time] 14.0 s High 9.8-13.2 [facility] Comment on above: Result Comment: NEW REFERENCE RANGE Performed By: #### P INR, 01823-8, 14034-4, CBCA, 57039-3, CMP, 4548-4, 6873-4 #### [facility] ([id number]) [address] [place] [address] 26799 #### HA1C #### [facility] ([id number]) [address] [facility], [address] [place] [address] aPTT Coag (PPP) [Time]on aPTT Coag (Bld) [Time] 30 s Normal 26-37 [facility] Comment on above: Result Comment: NEW REFERENCE RANGE Performed By: #### P INR, 13103-8, 91388-1, CBCA, 03732-3, CMP, 4548-4, 6873-4 #### [facility] ([id number]) [address] [place] [address], [place] [address] #### HA1C #### [facility] ([id number]) [address], [address] [place] [address] CBC AND AUTO DIFFon 04-21-20 24 ABSOLUTE BASOPHIL 0.0 X10E9/L Normal 0.0-0.2 [facility] Comment on above: Performed By: #### C BCA, CMP ####[facility] ([id number])[address], [address], [place] [address] ABSOLUTE NEUTROPHIL 2.8 X10E9/L Normal 1.5-6.6 [facility] Comment on above: Performed By: #### C BCA, CMP ####[facility] ([id number])[address], [address] [place] [address] Basophils/100 WBC (Bld) 0.7 % Normal [facility] Comment on above: Performed By: #### C BCA, CMP ####[facility] ([id number])[address], [address] [place] [address] Eosinophils (Bld) [#/Vol] 0.2 10*3/uL Normal 0.0-0.4 [facility] Comment on above: Performed By: #### C BCA, CMP ####[facility] ([id number])[address], [address] [place] [address] Eosinophils/100 WBC (Bld) 3.3 % Normal [facility] Comment on above: Performed By: #### C BCA, CMP ####[facility] ([id number])[address], [address] [place] [address] Erythrocyte distribution width (RBC) [Ratio] 16.2 % High 11.5-15.0 [facility] Comment on above: Performed By: #### C BCA, CMP ####[facility] ([id number])[address], [address], [place] [address] Hematocrit (Bld) [Volume fraction] 28.7 % Low 39-49 [facility] Comment on above: Performed By: #### C BCA, CMP ####[facility] ([id number])[address], [address], [place] [address] Hemoglobin (Bld) [Mass/Vol] 10.2 g/dL Low 13.0-17.0 [facility] Comment on above: Performed By: #### C ZACHARY, CMP ####[facility] ([id number])[address], [address] [address] Lymphocytes (Bld) [#/Vol] 1.3 10*3/uL Normal 1.0-3.5 [facility] Comment on above: Performed By: #### C ZACHARY, CMP ####[facility] ([id number])[address], [address] [address] Lymphocytes/100 WBC (Bld) 28.0 % Normal [facility] Comment on above: Performed By: #### C ZACHARY, CMP ####[facility] ([id number])[address], [address], [place] [address] MCH (RBC) [Entitic mass] 31.7 pg Normal 27-34 [facility] Comment on above: Performed By: #### C BCA, CMP ####[facility] ([id number])[address], [address] [address] MCHC (RBC) [Mass/Vol] 35.6 g/dL Normal 32-36 [facility] Comment on above: Performed By: #### C BCA, CMP ####[facility] ([id number])[address], [address], [place] [address] MCV (RBC) [Entitic vol] 89 fL Normal 80-100 [facility] Comment on above: Performed By: #### C BCA, CMP ####[facility] ([id number])[address], [address], [place] [address] Monocytes (Bld) [#/Vol] 0.5 10*3/uL Normal 0-0.9 [facility] Comment on above: Performed By: #### C BCA, CMP ####[facility] ([id number])[address], [address], [place] [address] Monocytes/100 WBC (Bld) 9.6 % Normal [facility] Comment on above: Performed By: #### C BCA, CMP ####[facility] ([id number])[address], [address], [place] [address] Neutrophils/100 WBC (Bld) 58.4 % Normal [facility] Comment on above: Performed By: #### C BCA, CMP ####[facility] ([id number])[address], [address], [place] [address] Platelet mean volume (Bld) [Entitic vol] 7.3 fL Normal 7-12 [facility] Comment on above: Performed By: #### C BCA, CMP ####[facility] ([id number])[address], [address], [place] [address] Platelets (Bld) [#/Vol] 249 10*3/uL Normal 150-450 [facility] Comment on above: Performed By: #### C BCA, CMP ####[facility] ([id number])[address], [address], [place] [address] RBC COUNT 3.23 X10E12/L Low 4.10-5.70 [facility] Comment on above: Performed By: #### C BCA, CMP ####[facility] ([id number])[address], [address], [place] [address] WBC (Bld) [#/Vol] 4.8 10*3/uL Normal 4.0-11.0 [facility] Comment on above: Performed By: #### C BCA, CMP ####[facility] ([id number])[address], [address], [place] [address] COMPREHENSIVE METABOLIC PANE [place] 04-21-2024 Albumin [Mass/Vol] 3.6 g/dL Normal 3.2-5.3 [facility] Comment on above: Performed By: #### C BCA, CMP ####[facility] ([id number])[address], [address] [address] ALP [Catalytic activity/Vol] 78 U/L Normal 39-130 [facility] Comment on above: Performed By: #### C BCA, CMP ####[facility] ([id number])[address] [address] ALT [Catalytic activity/Vol] 27 U/L Normal 0-40 [facility] Comment on above: Performed By: #### C BCA, CMP ####[facility] ([id number])[address], [address], [place] [address] Anion gap [Moles/Vol] 9 mmol/L Normal 5-15 [facility] Comment on above: Performed By: #### C BCA, CMP ####[facility] ([id number])[address] [address] [address] AST [Catalytic activity/Vol] 13 U/L Normal 0-41 [facility] Comment on above: Performed By: #### C BCA, CMP ####[facility] ([id number])[address] [address] [address] Bilirubin [Mass/Vol] 0.4 mg/dL Normal 0.3-1.2 [facility] Comment on above: Performed By: #### C BCA, CMP ####[facility] ([id number])[address] [address], [place] [address] Calcium [Mass/Vol] 8.8 mg/dL Normal 8.5-10.5 [facility] Comment on above: Performed By: #### C BCA, CMP ####[facility] ([id number])[address] [address] [address] Chloride [Moles/Vol] 100 mmol/L Normal 98-109 [facility] Comment on above: Performed By: #### C BCA, CMP ####[facility] ([id number])[address] [address] [address] CO2 [Moles/Vol] 28 mmol/L Normal 22-32 [facility] Comment on above: Performed By: #### C BCA, CMP ####[facility] ([id number])[address] [address] [address] Creatinine [Mass/Vol] 0.70 mg/dL Normal 0.60-1.30 [facility] Comment on above: Result Comment: METH OD TRACEABLE TO IDMS STANDARD Performed By: #### C BCA, CMP ####[facility] ([id number])[address] [address] [address] eGFR (CKD-EPI) NON-RACE DEPENDENT >90 Normal >59 [facility] Comment on above: Result Comment: Reported eGFR is based on the CKD-EPI 1 equation that does not use a race coefficient. Performed By: #### C BCA, CMP ####[facility] ([id number])[address] [address] [address] Glucose [Mass/Vol] 159 mg/dL High 65-99 [facility] Comment on above: Performed By: #### C BCA, CMP ####[facility] ([id number])[address] [address] [address] Potassium [Moles/Vol] 4.2 mmol/L Normal 3.5-5.0 [facility] Comment on above: Performed By: #### C ZACHARY, CMP ####[facility] ([id number])[address], [address], [place] [address] Protein [Mass/Vol] 5.6 g/dL Low 6.0-8.0 [facility] Comment on above: Performed By: #### C ZACHARY, CMP ####[facility] ([id number])[address], [address], [place] [address] Sodium [Moles/Vol] 137 mmol/L Normal 134-146 [facility] Comment on above: Performed By: #### C ZACHARY, CMP ####[facility] ([id number])[address], [address] [place] [address] Urea nitrogen [Mass/Vol] 17 mg/dL Normal 5-27 [facility] Comment on above: Performed By: #### C BCA, CMP ####[facility] ([id number])[address], [address] [place] [address] Glucose Glucometer (BldC) [M ass/Vol]on 04-21-2024 Glucose [Mass/Vol] 234 mg/dL High 65-99 [facility] Glucose [Mass/Vol] 143 mg/dL High 65-99 [facility] CBC AND AUTO DIFFon 04-20-20 ABSOLUTE BASOPHIL 0.1 X10E9/L Normal 0.0-0.2 [facility] Comment on above: Performed By: #### C ZACHARY, CMP, 26280-4 #### [facility] ([id number]) [address], [address] [place] [address] ABSOLUTE NEUTROPHIL 2.9 X10E9/L Normal 1.5-6.6 [facility] Comment on above: Performed By: #### C ZACHARY, CMP, 76357-1 #### [facility] ([id number]) [address], [address] [place] [address] Basophils/100 WBC (Bld) 1.1 % Normal [facility] Comment on above: Performed By: #### C BCA, CMP, 43693-2 #### [facility] ([id number]) [address], [address] [place] [address] Eosinophils (Bld) [#/Vol] 0.1 10*3/uL Normal 0.0-0.4 [facility] Comment on above: Performed By: #### C ZACHARY, CMP, 95246-9 #### [facility] ([id number]) [address], [address] [place] [address] Eosinophils/100 WBC (Bld) 2.7 % Normal [facility] Comment on above: Performed By: #### Thais SHARMA, CMP, 32386-0 #### [facility] ([id number]) [address], [address] [place] [address] Erythrocyte distribution width (RBC) [Ratio] 15.8 % High 11.5-15.0 [facility] Comment on above: Performed By: #### C BCA, CMP, 54724-2 #### [facility] ([id number]) [address] [address] [place] [address] Hematocrit (Bld) [Volume fraction] 30.3 % Low 39-49 [facility] Comment on above: Performed By: #### C BCA, CMP, 08293-9 #### [facility] ([id number]) [address] [place] [address] Hemoglobin (Bld) [Mass/Vol] 10.5 g/dL Low 13.0-17.0 [facility] Comment on above: Performed By: #### C BCA, CMP, 65698-3 #### [facility] ([id number]) [address] [place] [address] Lymphocytes (Bld) [#/Vol] 1.2 10*3/uL Normal 1.0-3.5 [facility] Comment on above: Performed By: #### C ZACHARY CMP, 97062-3 #### [facility] ([id number]) [address], [address] [place] [address] Lymphocytes/100 WBC (Bld) 25.4 % Normal [facility] Comment on above: Performed By: #### Thais SHARMA, CMP, 55187-0 #### [facility] ([id number]) [address], [address] [place] [address] MCH (RBC) [Entitic mass] 30.5 pg Normal 27-34 [facility] Comment on above: Performed By: #### Thais SHARMA, CMP, 52131-4 #### [facility] ([id number]) [address], [address] [place] [address] MCHC (RBC) [Mass/Vol] 34.5 g/dL Normal 32-36 [facility] Comment on above: Performed By: #### Thais SHARMA CMP, 84098-8 #### [facility] ([id number]) [address], [address] [place] [address] MCV (RBC) [Entitic vol] 88 fL Normal 80-100 [facility] Comment on above: Performed By: #### Thais SHARMA, CMP, 68944-0 #### [facility] ([id number]) [address], [address] [place] [address] Monocytes (Bld) [#/Vol] 0.4 10*3/uL Normal 0-0.9 [facility] Comment on above: Performed By: #### Thais BCA, CMP, 27193-6 #### [facility] ([id number]) [address], [address] [place] [address] Monocytes/100 WBC (Bld) 9.3 % Normal [facility] Comment on above: Performed By: #### C BCA, CMP, 50205-6 #### [facility] ([id number]) [address], [address] [place] [address] Neutrophils/100 WBC (Bld) 61.5 % Normal [facility] Comment on above: Performed By: #### C BCA, CMP, 06073-5 #### [facility] ([id number]) [address], [address] [place] [address] Platelet mean volume (Bld) [Entitic vol] 7.1 fL Normal 7-12 [facility] Comment on above: Performed By: #### C BCA, CMP, 10681-9 #### [facility] ([id number]) [address], [address] [place] [address] Platelets (Bld) [#/Vol] 291 10*3/uL Normal 150-450 [facility] Comment on above: Performed By: #### C BCA, CMP, 23847-4 #### [facility] ([id number]) [address], [address] [place] [address] RBC COUNT 3.43 X10E12/L Low 4.10-5.70 [facility] Comment on above: Performed By: #### C BCA, CMP, 78300-1 #### [facility] ([id number]) [address], [address] [place] [address] WBC (Bld) [#/Vol] 4.7 10*3/uL Normal 4.0-11.0 [facility] Comment on above: Performed By: #### C BCA, CMP, 64124-7 #### [facility] ([id number]) [address], [address] [place] [address] COMPREHENSIVE METABOLIC PANE [place] 04-20-2024 Albumin [Mass/Vol] 3.9 g/dL Normal 3.2-5.3 [facility] Comment on above: Performed By: #### C BCA, CMP, 43735-3 #### [facility] ([id number]) [address], [address] [place] [address] ALP [Catalytic activity/Vol] 94 U/L Normal 39-130 [facility] Comment on above: Performed By: #### C BCA, CMP, 88472-0 #### [facility] ([id number]) [address], [address] [place] [address] ALT [Catalytic activity/Vol] 41 U/L High 0-40 [facility] Comment on above: Performed By: #### C BCA, CMP, 57101-2 #### [facility] ([id number]) [address], [address] [place] [address] Anion gap [Moles/Vol] 9 mmol/L Normal 5-15 [facility] Comment on above: Performed By: #### C BCA, CMP, 71158-4 #### [facility] ([id number]) [address], [address] [place] [address] AST [Catalytic activity/Vol] 22 U/L Normal 0-41 [facility] Comment on above: Performed By: #### C BCA, CMP, 38449-2 #### [facility] ([id number]) [address], [address] [place] [address] Bilirubin [Mass/Vol] 0.6 mg/dL Normal 0.3-1.2 [facility] Comment on above: Performed By: #### C BCA, CMP, 41447-9 #### [facility] ([id number]) [address], [address] [place] [address] Calcium [Mass/Vol] 9.1 mg/dL Normal 8.5-10.5 [facility] Comment on above: Performed By: #### C BCA, CMP, 51390-5 #### [facility] ([id number]) [address], [address] [place] [address] Chloride [Moles/Vol] 98 mmol/L Normal 98-109 [facility] Comment on above: Performed By: #### C BCA, CMP, 81656-6 #### [facility] ([id number]) [address], [address] [place] [address] CO2 [Moles/Vol] 30 mmol/L Normal 22-32 [facility] Comment on above: Performed By: #### C BCA, CMP, 03315-7 #### [facility] ([id number]) [address], [address] [place] [address] Creatinine [Mass/Vol] 0.69 mg/dL Normal 0.60-1.30 [facility] Comment on above: Result Comment: METH OD TRACEABLE TO IDMS STANDARD Performed By: #### C ZACHARY, CMP, 31942-9 #### [facility] ([id number]) [address], [address] [place] [address] eGFR (CKD-EPI) NON-RACE DEPENDENT >90 Normal >59 [facility] Comment on above: Result Comment: Reported eGFR is based on the CKD-EPI 2020 equation that does not use a race coefficient. Performed By: #### C BCA, CMP, 80139-9 #### [facility] ([id number]) [address], [address] [place] [address] Glucose [Mass/Vol] 204 mg/dL High 65-99 [facility] Comment on above: Performed By: #### C BCA, CMP, 06031-7 #### [facility] ([id number]) [address] [address] [place] [address] Potassium [Moles/Vol] 4.3 mmol/L Normal 3.5-5.0 [facility] Comment on above: Performed By: #### C BCA, CMP, 59020-9 #### [facility] ([id number]) [address], [address] [place] [address] Protein [Mass/Vol] 6.2 g/dL Normal 6.0-8.0 [facility] Comment on above: Performed By: #### C BCA, CMP, 66504-6 #### [facility] ([id number]) [address], [address] [place] [address] Sodium [Moles/Vol] 137 mmol/L Normal 134-146 [facility] Comment on above: Performed By: #### C BCA, CMP, 99555-7 #### [facility] ([id number]) [address], [address] [place] [address] Urea nitrogen [Mass/Vol] 11 mg/dL Normal 5-27 [facility] Comment on above: Performed By: #### C BCA, CMP, 24469-3 #### [facility] ([id number]) [address], [address] [place] [address] Glucose Glucometer (BldC) [M ass/Vol]on 04-20-2024 Glucose [Mass/Vol] 287 mg/dL High 65-99 [facility] Glucose [Mass/Vol] 263 mg/dL High 65-99 [facility] Glucose [Mass/Vol] 231 mg/dL High 65-99 [facility] Glucose [Mass/Vol] 176 mg/dL High 65-99 [facility] CBC AND AUTO DIFFon 04-19-20 24 ABSOLUTE BASOPHIL 0.0 X10E9/L Normal 0.0-0.2 [facility] Comment on above: Performed By: #### C BCA, CMP, 65991-6 #### [facility] ([id number]) [address], [address] [place] [address] ABSOLUTE NEUTROPHIL 2.1 X10E9/L Normal 1.5-6.6 [facility] Comment on above: Performed By: #### C BCA, CMP, 51249-0 #### [facility] ([id number]) [address], [address] [place] [address] Basophils/100 WBC (Bld) 1.2 % Normal [facility] Comment on above: Performed By: #### C BCA, CMP, 75109-4 #### [facility] ([id number]) [address], [address] [place] [address] Eosinophils (Bld) [#/Vol] 0.1 10*3/uL Normal 0.0-0.4 [facility] Comment on above: Performed By: #### C ZACHARY, CMP, 44881-1 #### [facility] ([id number]) [address] [address] [place] [address] Eosinophils/100 WBC (Bld) 3.6 % Normal [facility] Comment on above: Performed By: #### Thais SHARMA, CMP, 51626-2 #### [facility] ([id number]) [address], [address] [place] [address] Erythrocyte distribution width (RBC) [Ratio] 15.5 % High 11.5-15.0 [facility] Comment on above: Performed By: #### C ZACHARY, CMP, 54552-0 #### [facility] ([id number]) [address] [address] [place] [address] Hematocrit (Bld) [Volume fraction] 29.4 % Low 39-49 [facility] Comment on above: Performed By: #### C ZACHARY, CMP, 55319-5 #### [facility] ([id number]) [address] [address] [place] [address] Hemoglobin (Bld) [Mass/Vol] 10.1 g/dL Low 13.0-17.0 [facility] Comment on above: Performed By: #### C BCA, CMP, 42547-7 #### [facility] ([id number]) [address] [address] [place] [address] Lymphocytes (Bld) [#/Vol] 1.0 10*3/uL Normal 1.0-3.5 [facility] Comment on above: Performed By: #### C ZACHARY CMP, 54156-8 #### [facility] ([id number]) [address], [address] [place] [address] Lymphocytes/100 WBC (Bld) 28.5 % Normal [facility] Comment on above: Performed By: #### C ZACHARY, CMP, 96727-2 #### [facility] ([id number]) [address], [address] [place] [address] MCH (RBC) [Entitic mass] 30.8 pg Normal 27-34 [facility] Comment on above: Performed By: #### Thais SHARMA, CMP, 69803-8 #### [facility] ([id number]) [address], [address] [place] [address] MCHC (RBC) [Mass/Vol] 34.4 g/dL Normal 32-36 [facility] Comment on above: Performed By: #### Thais SHARMA, CMP, 43102-9 #### [facility] ([id number]) [address], [address] [place] [address] MCV (RBC) [Entitic vol] 89 fL Normal 80-100 [facility] Comment on above: Performed By: #### Thais SHARMA, CMP, 97775-8 #### [facility] ([id number]) [address], [address] [place] [address] Monocytes (Bld) [#/Vol] 0.3 10*3/uL Normal 0-0.9 [facility] Comment on above: Performed By: #### C ZACHARY, CMP, 78672-6 #### [facility] ([id number]) [address], [address] [place] [address] Monocytes/100 WBC (Bld) 8.3 % Normal [facility] Comment on above: Performed By: #### C BCA, CMP, 98958-1 #### [facility] ([id number]) [address], [address] [place] [address] Neutrophils/100 WBC (Bld) 58.4 % Normal [facility] Comment on above: Performed By: #### C BCA, CMP, 76849-3 #### [facility] ([id number]) [address], [facility] [address] [place] [address] Platelet mean volume (Bld) [Entitic vol] 7.1 fL Normal 7-12 [facility] Comment on above: Performed By: #### C BCA, CMP, 88902-0 #### [facility] ([id number]) [address] [address] [place] [address] Platelets (Bld) [#/Vol] 264 10*3/uL Normal 150-450 [facility] Comment on above: Performed By: #### C BCA, CMP, 59360-2 #### [facility] ([id number]) [address], [facility] [address] [place] [address] RBC COUNT 3.29 X10E12/L Low 4.10-5.70 [facility] Comment on above: Performed By: #### C BCA, CMP, 67911-9 #### [facility] ([id number]) [address], [facility] [address] [place] [address] WBC (Bld) [#/Vol] 3.6 10*3/uL Low 4.0-11.0 [facility] Comment on above: Performed By: #### C BCA, CMP, 86162-2 #### [facility] ([id number]) [address], [address] [place] [address] COMPREHENSIVE METABOLIC PANE Delonte 04-19-2024 Albumin [Mass/Vol] 3.8 g/dL Normal 3.2-5.3 [facility] Comment on above: Performed By: #### C BCA, CMP, 24855-3 #### [facility] ([id number]) [address], [address] [place] [address] ALP [Catalytic activity/Vol] 91 U/L Normal 39-130 [facility] Comment on above: Performed By: #### C BCA, CMP, 63621-4 #### [facility] ([id number]) [address], [address] [place] [address] ALT [Catalytic activity/Vol] 40 U/L Normal 0-40 [facility] Comment on above: Performed By: #### C BCA, CMP, 04394-4 #### [facility] ([id number]) [address], [address] [place] [address] Anion gap [Moles/Vol] 10 mmol/L Normal 5-15 [facility] Comment on above: Performed By: #### C BCA, CMP, 31729-2 #### [facility] ([id number]) [address], [address] [place] [address] AST [Catalytic activity/Vol] 24 U/L Normal 0-41 [facility] Comment on above: Performed By: #### C BCA, CMP, 85727-5 #### [facility] ([id number]) [address], [address] [place] [address] Bilirubin [Mass/Vol] 0.7 mg/dL Normal 0.3-1.2 [facility] Comment on above: Performed By: #### C BCA, CMP, 53099-5 #### [facility] ([id number]) [address], [address] [place] [address] Calcium [Mass/Vol] 9.0 mg/dL Normal 8.5-10.5 [facility] Comment on above: Performed By: #### C BCA, CMP, 47622-8 #### [facility] ([id number]) [address], [address] [place] [address] Chloride [Moles/Vol] 100 mmol/L Normal 98-109 [facility] Comment on above: Performed By: #### C BCA, CMP, 47263-6 #### [facility] ([id number]) [address], [address] [place] [address] CO2 [Moles/Vol] 27 mmol/L Normal 22-32 [facility] Comment on above: Performed By: #### C BCA, CMP, 09071-8 #### [facility] ([id number]) [address], [address] [place] [address] Creatinine [Mass/Vol] 0.62 mg/dL Normal 0.60-1.30 [facility] Comment on above: Result Comment: METH OD TRACEABLE TO IDMS STANDARD Performed By: #### C ZACHARY, CMP, 51936-1 #### [facility] ([id number]) [address], [address] [place] [address] eGFR (CKD-EPI) NON-RACE DEPENDENT >90 Normal >59 [facility] Comment on above: Result Comment: Reported eGFR is based on the CKD-EPI 1 equation that does not use a race coefficient. Performed By: #### C BCA, CMP, 01557-5 #### [facility] ([id number]) [address], [address] [place] [address] Glucose [Mass/Vol] 124 mg/dL High 65-99 [facility] Comment on above: Performed By: #### C BCA, CMP, 63615-5 #### [facility] ([id number]) [address], [address] [place] [address] Potassium [Moles/Vol] 3.8 mmol/L Normal 3.5-5.0 [facility] Comment on above: Performed By: #### C BCA, CMP, 53089-4 #### [facility] ([id number]) [address], [address] [place] [address] Protein [Mass/Vol] 6.0 g/dL Normal 6.0-8.0 [facility] Comment on above: Performed By: #### C BCA, CMP, 87708-8 #### [facility] ([id number]) [address], [address] [place] [address] Sodium [Moles/Vol] 137 mmol/L Normal 134-146 [facility] Comment on above: Performed By: #### C BCA, CMP, 31002-2 #### [facility] ([id number]) [address], [address] [place] [address] Urea nitrogen [Mass/Vol] 7 mg/dL Normal 5-27 [facility] Comment on above: Performed By: #### C BCA, CMP, 97691-7 #### [facility] ([id number]) [address], [address] [place] [address] Folate [Mass/Vol]on 04-19-20 FOLIC ACID 8.1 ng/mL Normal >5.8 [facility] Comment on above: Result Comment: NEW REFERENCE RANGE Performed By: #### C BCA, CMP, 86726-0 #### [facility] ([id number]) [address], [address] [place] [address] Glucose Glucometer (BldC) [M ass/Vol]on 04-19-2024 Glucose [Mass/Vol] 142 mg/dL High 65-99 [facility] Glucose [Mass/Vol] 129 mg/dL High 65-99 [facility] Glucose [Mass/Vol] 119 mg/dL High 65-99 [facility] Glucose [Mass/Vol] 132 mg/dL High 65-99 [facility] HGB AND HCTon 04-19-2024 Hematocrit (Bld) [Volume fraction] 32.0 % Low 39-49 [facility] Comment on above: Performed By: #### C BCA, CMP, 76028-3 #### [facility] ([id number]) [address] [place] [address], [address] [place] [address] Hemoglobin (Bld) [Mass/Vol] 11.1 g/dL Low 13.0-17.0 [facility] Comment on above: Performed By: #### C BCA, CMP, 17823-7 #### [facility] ([id number]) [address] [place] [address], [address] [place] [address] Surgical Pathologyon 024 Surgical Pathology Normal [facility] Comment on above: Result Comment: [facility] [address] [place] [address] Surgical Pathology Consultation Patient Name:VASHTI MASSEY:1955 (Age: 68)Gender:MTaken:04/19/2024eported:04/22/2024hysician(s):Ray Craft MD ( )Copy To: Rec. #:[id number]: #[id number] Final Pathologic Diagnosis 1. Transverse colon polyp: Tubular adenoma. 2. Transverse colon polyp #2; EMR: Tubular adenoma fragments. Report Electronically Signed Out st/04/22/2024Bee Ontiveros MD Interpretation performed at [facility], [address] [facility] [address], License number: [id number]. Clinical History Iron deficiency anemia, unspecified iron deficiency anemia type. Gross Description 1. Received in formalin labeled BRYSON, transverse colon polyp are eight pale black feathery soft tissue bits admixed with friable vegetative material, 0.1-0.6 cm. The specimen is filtered and entirely submitted in a single cassette. (1, ns, [id number],m8) DM. 2. Received in formalin labeled BRYSON, transverse colon polyp #2 is a pale-black polyp, 1.1 x 0.8 x 0.5 cm. The resection margin is inked black. The specimen is serially sectioned and entirely submitted in cassette A. Also received in the container are eight pale-black feathery soft tissue fragments, 0.1-0.6 cm. These are submitted in cassette B. (2, ns, [id number],m8) DM. dm/04/20/2024NSK Specimen(s) Received 1: Transverse colon polyp 2: Transverse colon polyp #2; EMR Fee Codes(s): 1; 09001 2; 31283 THYROID PROFILEon 04-19-2024 Free T4 [Mass/Vol] 1.13 ng/dL Normal 0.61-1.60 [facility] Comment on above: Performed By: #### C BCA, [facility], 02718-7 #### [facility] ([id number]) [address], [address] [place] [address] TSH 5.50 uIU/mL High 0.49-4.67 [facility] Comment on above: Performed By: #### C BCA, [facility], 07725-2 #### [facility] ([id number]) [address], [address] [place] [address] Thiamine (Bld) [Mass/Vol]on 04-19-2024 THIAMIN VITAMIN B1 See Below Normal [facility] Comment on above: Result Comment: NOTE TEST [...] and its performance characteristics determined by [facility]'s Yudelka Ollie [facility] [place] ([facility]). It has not been cleared or approved by the FDA. -[facility] is regulated under CLIA as qualified to perform high-complexity testing. This test is used for clinical purposes. It should not be regarded as investigational or for research. Test Performed By: [place] [address] Language Interpreter: Bijan Murphy III, M.D. CLIA #[id number] Performed By: #### C NAHOMY SHARMA, 56426-6 #### [facility] ([id number]) [address], [address] [place] [address] VITAMIN B12on 04-19-2024 Cobalamin (Vitamin B12) [Mass/Vol] pg/mL High 180-914 [facility] Comment on above: Performed By: #### Thais SHARMA CMP, 48790-5 #### [facility] ([id number]) [address], [address] [place] [address] CBC AND AUTO DIFFon 04-18-20 ABSOLUTE BASOPHIL 0.0 X10E9/L Normal 0.0-0.2 [facility] Comment on above: Performed By: #### Thais SHARMA CMP, 80951-8 #### [facility] ([id number]) [address], [address] [place] [address] ABSOLUTE NEUTROPHIL 2.5 X10E9/L Normal 1.5-6.6 [facility] Comment on above: Performed By: #### Thais SHARMA CMP, 08787-1 #### [facility] ([id number]) [address], [address] [place] [address] Basophils/100 WBC (Bld) 0.9 % Normal [facility] Comment on above: Performed By: #### Thais SHARMA CMP, 72096-2 #### [facility] ([id number]) [address], [address] [place] [address] Eosinophils (Bld) [#/Vol] 0.1 10*3/uL Normal 0.0-0.4 [facility] Comment on above: Performed By: #### C NAHOMY SHARMA, 24864-6 #### [facility] ([id number]) [address], [address] [place] [address] Eosinophils/100 WBC (Bld) 2.4 % Normal [facility] Comment on above: Performed By: #### C ZACHARY CMP, 58850-5 #### [facility] ([id number]) [address] [place] [address] Erythrocyte distribution width (RBC) [Ratio] 15.9 % High 11.5-15.0 [facility] Comment on above: Performed By: #### C ZACHARY CMP, 47931-0 #### [facility] ([id number]) [address], [address] [place] [address] Hematocrit (Bld) [Volume fraction] 27.5 % Low 39-49 [facility] Comment on above: Performed By: #### C NAHOMY SHARMA, 93794-2 #### [facility] ([id number]) [address], [address] [place] [address] Hemoglobin (Bld) [Mass/Vol] 9.6 g/dL Low 13.0-17.0 [facility] Comment on above: Performed By: #### C ZACHARY CMP, 79224-5 #### [facility] ([id number]) [address], [address] [place] [address] Lymphocytes (Bld) [#/Vol] 0.8 10*3/uL Low 1.0-3.5 [facility] Comment on above: Performed By: #### C ZACHARY, CMP, 21166-1 #### [facility] ([id number]) [address], [address] [place] [address] Lymphocytes/100 WBC (Bld) 22.0 % Normal [facility] Comment on above: Performed By: #### C BCA, CMP, 28912-6 #### [facility] ([id number]) [address], [address] [place] [address] MCH (RBC) [Entitic mass] 31.2 pg Normal 27-34 [facility] Comment on above: Performed By: #### C BCA, CMP, 51211-0 #### [facility] ([id number]) [address], [address] [place] [address] MCHC (RBC) [Mass/Vol] 34.8 g/dL Normal 32-36 [facility] Comment on above: Performed By: #### C BCA, CMP, 10785-9 #### [facility] ([id number]) [address], [address] [place] [address] MCV (RBC) [Entitic vol] 90 fL Normal 80-100 [facility] Comment on above: Performed By: #### C BCA, CMP, 26116-3 #### [facility] ([id number]) [address], [address] [place] [address] Monocytes (Bld) [#/Vol] 0.2 10*3/uL Normal 0-0.9 [facility] Comment on above: Performed By: #### C BCA, CMP, 27813-0 #### [facility] ([id number]) [address], [address] [place] [address] Monocytes/100 WBC (Bld) 6.4 % Normal [facility] Comment on above: Performed By: #### C BCA, CMP, 14117-0 #### [facility] ([id number]) [address], [address] [place] [address] Neutrophils/100 WBC (Bld) 68.3 % Normal [facility] Comment on above: Performed By: #### C BCA, CMP, 19847-7 #### [facility] ([id number]) [address], [address] [place] [address] Platelet mean volume (Bld) [Entitic vol] 6.9 fL Low 7-12 [facility] Comment on above: Performed By: #### C BCA, CMP, 55382-2 #### [facility] ([id number]) [address], [facility] [address] [place] [address] Platelets (Bld) [#/Vol] 251 10*3/uL Normal 150-450 [facility] Comment on above: Performed By: #### C BCA, CMP, 34669-2 #### [facility] ([id number]) [address], [facility] [address] [place] [address] RBC COUNT 3.07 X10E12/L Low 4.10-5.70 [facility] Comment on above: Performed By: #### C BCA, CMP, 02071-6 #### [facility] ([id number]) [address], [facility] [address] [place] [address] WBC (Bld) [#/Vol] 3.6 10*3/uL Low 4.0-11.0 [facility] Comment on above: Performed By: #### C BCA, CMP, 29230-5 #### [facility] ([id number]) [address], [address] [place] [address] COMPREHENSIVE METABOLIC PANE [place] 04-18-2024 Albumin [Mass/Vol] 3.6 g/dL Normal 3.2-5.3 [facility] Comment on above: Performed By: #### C BCA, CMP, 58999-8 #### [facility] ([id number]) [address], [facility] [address] [place] [address] ALP [Catalytic activity/Vol] 85 U/L Normal 39-130 [facility] Comment on above: Performed By: #### C BCA, CMP, 11368-7 #### [facility] ([id number]) [address], [address] [place] [address] ALT [Catalytic activity/Vol] 41 U/L High 0-40 [facility] Comment on above: Performed By: #### C BCA, CMP, 61844-2 #### [facility] ([id number]) [address], [address] [place] [address] Anion gap [Moles/Vol] 11 mmol/L Normal 5-15 [facility] Comment on above: Performed By: #### C BCA, CMP, 76113-8 #### [facility] ([id number]) [address], [address] [place] [address] AST [Catalytic activity/Vol] 26 U/L Normal 0-41 [facility] Comment on above: Performed By: #### Thais SHARMA, CMP, 04901-1 #### [facility] ([id number]) [address], [address] [place] [address] Bilirubin [Mass/Vol] 0.7 mg/dL Normal 0.3-1.2 [facility] Comment on above: Performed By: #### Thais SHARMA, CMP, 83667-5 #### [facility] ([id number]) [address], [address] [place] [address] Calcium [Mass/Vol] 8.6 mg/dL Normal 8.5-10.5 [facility] Comment on above: Performed By: #### C BCA, CMP, 04443-7 #### [facility] ([id number]) [address], [address] [place] [address] Chloride [Moles/Vol] 100 mmol/L Normal 98-109 [facility] Comment on above: Performed By: #### C BCA, CMP, 90475-1 #### [facility] ([id number]) [address], [address] [place] [address] CO2 [Moles/Vol] 25 mmol/L Normal 22-32 [facility] Comment on above: Performed By: #### C ZACHARY, CMP, 31471-9 #### [facility] ([id number]) [address] [address] [place] [address] Creatinine [Mass/Vol] 0.59 mg/dL Low 0.60-1.30 [facility] Comment on above: Result Comment: METH OD TRACEABLE TO IDMS STANDARD Performed By: #### C NAHOMY SHARMA, 35922-8 #### [facility] ([id number]) [address], [address] [place] [address] eGFR (CKD-EPI) NON-RACE DEPENDENT >90 Normal >59 [facility] Comment on above: Result Comment: Reported eGFR is based on the CKD-EPI 2020 equation that does not use a race coefficient. Performed By: #### C NAHOMY SHARMA, 53332-9 #### [facility] ([id number]) [address], [address] [place] [address] Glucose [Mass/Vol] 104 mg/dL High 65-99 [facility] Comment on above: Performed By: #### C NAHOMY SHARMA, 47100-1 #### [facility] ([id number]) [address] [address] [place] [address] Potassium [Moles/Vol] 3.7 mmol/L Normal 3.5-5.0 [facility] Comment on above: Performed By: #### C ZACHARY CMP, 59609-6 #### [facility] ([id number]) [address], [address] [place] [address] Protein [Mass/Vol] 5.7 g/dL Low 6.0-8.0 [facility] Comment on above: Performed By: #### C BCA, CMP, 94386-7 #### [facility] ([id number]) [address], [address] [place] [address] Sodium [Moles/Vol] 136 mmol/L Normal 134-146 [facility] Comment on above: Performed By: #### Thais SHARMA CMP, 47955-5 #### [facility] ([id number]) [address], [address] [place] [address] Urea nitrogen [Mass/Vol] 12 mg/dL Normal 5-27 [facility] Comment on above: Performed By: #### Thais SHARMA CMP, 48970-9 #### [facility] ([id number]) [address], [address] [place] [address] Glucose Glucometer (BldC) [M ass/Vol]on 04-18-2024 Glucose [Mass/Vol] 135 mg/dL High 65-99 [facility] Glucose [Mass/Vol] 168 mg/dL High 65-99 [facility] Glucose [Mass/Vol] 169 mg/dL High 65-99 [facility] HGB AND HCTon 04-18-2024 Hematocrit (Bld) [Volume fraction] 27.9 % Low 39-49 [facility] Comment on above: Performed By: #### Thais SHARMA CMP, 29717-2 #### [facility] ([id number]) [address] [place] [address] Hemoglobin (Bld) [Mass/Vol] 9.6 g/dL Low 13.0-17.0 [facility] Comment on above: Performed By: #### Thais SHARMA CMP, 26649-2 #### [facility] ([id number]) [address] [place] [address] POTASSIUMon 04-18-2024 Potassium [Moles/Vol] 4.4 mmol/L Normal 3.5-5.0 [facility] Comment on above: Performed By: #### Thais SHARMA, CMP, 73105-6 #### [facility] ([id number]) [address], [address] [place] [address] CBC AND AUTO DIFFon 04-17-20 24 ABSOLUTE BASOPHIL 0.0 X10E9/L Normal 0.0-0.2 [facility] Comment on above: Performed By: #### Thais SHARMA CMP, 66865-9 #### [facility] ([id number]) [address], [address] [place] [address] ABSOLUTE NEUTROPHIL 2.5 X10E9/L Normal 1.5-6.6 [facility] Comment on above: Performed By: #### Thais SHARMA CMP, 17887-5 #### [facility] ([id number]) [address], [facility] [address] [place] [address] Basophils/100 WBC (Bld) 1.0 % Normal [facility] Comment on above: Performed By: #### Thais SHARMA CMP, 29466-6 #### [facility] ([id number]) [address], [address] [place] [address] Eosinophils (Bld) [#/Vol] 0.2 10*3/uL Normal 0.0-0.4 [facility] Comment on above: Performed By: #### Thais SHARMA CMP, 78160-3 #### [facility] ([id number]) [address], [address] [place] [address] Eosinophils/100 WBC (Bld) 4.1 % Normal [facility] Comment on above: Performed By: #### Thais SHARMA CMP, 10387-3 #### [facility] ([id number]) [address], [address] [place] [address] Erythrocyte distribution width (RBC) [Ratio] 16.0 % High 11.5-15.0 [facility] Comment on above: Performed By: #### Thais SHARMA CMP, 25465-6 #### [facility] ([id number]) [address], [address] [place] [address] Hematocrit (Bld) [Volume fraction] 27.8 % Low 39-49 [facility] Comment on above: Performed By: #### C BCA, CMP, 18317-2 #### [facility] ([id number]) [address], [address] [place] [address] Hemoglobin (Bld) [Mass/Vol] 9.7 g/dL Low 13.0-17.0 [facility] Comment on above: Performed By: #### C BCA, CMP, 61745-5 #### [facility] ([id number]) [address], [facility] [address] [place] [address] Lymphocytes (Bld) [#/Vol] 1.0 10*3/uL Normal 1.0-3.5 [facility] Comment on above: Performed By: #### Thais BCA, CMP, 68949-0 #### [facility] ([id number]) [address] [address] [place] [address] Lymphocytes/100 WBC (Bld) 24.3 % Normal [facility] Comment on above: Performed By: #### Thais BCA, CMP, 20483-3 #### [facility] ([id number]) [address], [facility] [address] [place] [address] MCH (RBC) [Entitic mass] 31.1 pg Normal 27-34 [facility] Comment on above: Performed By: #### Thais BCA, CMP, 83246-5 #### [facility] ([id number]) [address], [address] [place] [address] MCHC (RBC) [Mass/Vol] 35.0 g/dL Normal 32-36 [facility] Comment on above: Performed By: #### C BCA, CMP, 52116-2 #### [facility] ([id number]) [address], [address] [place] [address] MCV (RBC) [Entitic vol] 89 fL Normal 80-100 [facility] Comment on above: Performed By: #### Thais BCA, CMP, 34796-6 #### [facility] ([id number]) [address], [address] [place] [address] Monocytes (Bld) [#/Vol] 0.3 10*3/uL Normal 0-0.9 [facility] Comment on above: Performed By: #### C BCA, CMP, 00673-3 #### [facility] ([id number]) [address], [address] [place] [address] Monocytes/100 WBC (Bld) 8.3 % Normal [facility] Comment on above: Performed By: #### C BCA, CMP, 33676-1 #### [facility] ([id number]) [address], [address] [place] [address] Neutrophils/100 WBC (Bld) 62.3 % Normal [facility] Comment on above: Performed By: #### Thais BCA, CMP, 57856-7 #### [facility] ([id number]) [address], [address] [place] [address] Platelet mean volume (Bld) [Entitic vol] 6.9 fL Low 7-12 [facility] Comment on above: Performed By: #### Thais BCA, CMP, 87218-8 #### [facility] ([id number]) [address], [address] [place] [address] Platelets (Bld) [#/Vol] 267 10*3/uL Normal 150-450 [facility] Comment on above: Performed By: #### C BCA, CMP, 33222-6 #### [facility] ([id number]) [address], [address] [place] [address] RBC COUNT 3.13 X10E12/L Low 4.10-5.70 [facility] Comment on above: Performed By: #### C BCA, CMP, 01324-4 #### [facility] ([id number]) [address], [address] [place] [address] WBC (Bld) [#/Vol] 4.0 10*3/uL Normal 4.0-11.0 [facility] Comment on above: Performed By: #### C BCA, CMP, 17711-4 #### [facility] ([id number]) [address], [address] [place] [address] COMPREHENSIVE METABOLIC PANE [place] 04-17-2024 Albumin [Mass/Vol] 3.7 g/dL Normal 3.2-5.3 [facility] Comment on above: Performed By: #### C BCA, CMP, 54392-0 #### [facility] ([id number]) [address], [address] [place] [address] ALP [Catalytic activity/Vol] 83 U/L Normal 39-130 [facility] Comment on above: Performed By: #### C BCA, CMP, 87354-0 #### [facility] ([id number]) [address], [address] [place] [address] ALT [Catalytic activity/Vol] 29 U/L Normal 0-40 [facility] Comment on above: Performed By: #### C BCA, CMP, 96465-7 #### [facility] ([id number]) [address], [address] [place] [address] Anion gap [Moles/Vol] 8 mmol/L Normal 5-15 [facility] Comment on above: Performed By: #### C BCA, CMP, 55294-8 #### [facility] ([id number]) [address], [address] [place] [address] AST [Catalytic activity/Vol] 23 U/L Normal 0-41 [facility] Comment on above: Performed By: #### C BCA, CMP, 41658-9 #### [facility] ([id number]) [address], [address] [place] [address] Bilirubin [Mass/Vol] 0.8 mg/dL Normal 0.3-1.2 [facility] Comment on above: Performed By: #### C BCA, CMP, 15047-7 #### [facility] ([id number]) [address], [address] [place] [address] Calcium [Mass/Vol] 8.5 mg/dL Normal 8.5-10.5 [facility] Comment on above: Performed By: #### C BCA, CMP, 58670-9 #### [facility] ([id number]) [address], [address] [place] [address] Chloride [Moles/Vol] 102 mmol/L Normal 98-109 [facility] Comment on above: Performed By: #### C BCA, CMP, 14288-0 #### [facility] ([id number]) [address], [address] [place] [address] CO2 [Moles/Vol] 27 mmol/L Normal 22-32 [facility] Comment on above: Performed By: #### C ZACHARY, CMP, 76549-4 #### [facility] ([id number]) [address], [address] [place] [address] Creatinine [Mass/Vol] 0.61 mg/dL Normal 0.60-1.30 [facility] Comment on above: Result Comment: METH OD TRACEABLE TO IDMS STANDARD Performed By: #### C BCA, CMP, 89509-5 #### [facility] ([id number]) [address], [address] [place] [address] eGFR (CKD-EPI) NON-RACE DEPENDENT >90 Normal >59 [facility] Comment on above: Result Comment: Reported eGFR is based on the CKD-EPI 2020 equation that does not use a race coefficient. Performed By: #### C BCA, CMP, 96216-5 #### [facility] ([id number]) [address], [address] [place] [address] Glucose [Mass/Vol] 123 mg/dL High 65-99 [facility] Comment on above: Performed By: #### C BCA, CMP, 52834-6 #### [facility] ([id number]) [address], [address] [place] [address] Potassium [Moles/Vol] 4.1 mmol/L Normal 3.5-5.0 [facility] Comment on above: Performed By: #### C BCA, CMP, 75626-0 #### [facility] ([id number]) [address] [place] [address] Protein [Mass/Vol] 5.7 g/dL Low 6.0-8.0 [facility] Comment on above: Performed By: #### C BCA, CMP, 59510-3 #### [facility] ([id number]) [address], [address] [place] [address] Sodium [Moles/Vol] 137 mmol/L Normal 134-146 [facility] Comment on above: Performed By: #### Thais BCA, CMP, 61313-6 #### [facility] ([id number]) [address], [address] [place] [address] Urea nitrogen [Mass/Vol] 16 mg/dL Normal 5-27 [facility] Comment on above: Performed By: #### C BCA, CMP, 61010-3 #### [facility] ([id number]) [address], [address] [place] [address] Glucose Glucometer (BldC) [M ass/Vol]on 04-17-2024 Glucose [Mass/Vol] 97 mg/dL Normal 65-99 [facility] HGB AND HCTon 04-17-2024 Hematocrit (Bld) [Volume fraction] 28.5 % Low 39-49 [facility] Comment on above: Performed By: #### C BCA, CMP, 36763-3 #### [facility] ([id number]) [address], [address] [place] [address] Hemoglobin (Bld) [Mass/Vol] 9.8 g/dL Low 13.0-17.0 [facility] Comment on above: Performed By: #### C ZACHARY, CMP, 92716-1 #### [facility] ([id number]) [address], [facility] [address] [place] [address] Hematocrit (Bld) [Volume fraction] 29.3 % Low 39-49 [facility] Comment on above: Performed By: #### C ZACHARY, CMP, 79666-4 #### [facility] ([id number]) [address] [address] [place] [address] Hemoglobin (Bld) [Mass/Vol] 10.0 g/dL Low 13.0-17.0 [facility] Comment on above: Performed By: #### C ZACHARY, CMP, 35408-0 #### [facility] ([id number]) [address] [address] [place] [address] CBC AND AUTO DIFFon 04-16- 24 Eosinophils (Bld) [#/Vol] 0.1 10*3/uL Normal 0.0-0.4 [facility] Comment on above: Performed By: #### C BCA, CMP ####[facility] ([id number])[address] [address] Eosinophils/100 WBC (Bld) 3.1 % Normal [facility] Comment on above: Performed By: #### C BCA, CMP ####[facility] ([id number])[address] [place] [address] Erythrocyte distribution width (RBC) [Ratio] 16.6 % High 11.5-15.0 [facility] Comment on above: Performed By: #### C BCA, CMP ####[facility] ([id number])[address] [address] Hematocrit (Bld) [Volume fraction] 28.1 % Low 39-49 [facility] Comment on above: Performed By: #### C BCA, CMP ####[facility] ([id number])[address], [place] [address] Hemoglobin (Bld) [Mass/Vol] 9.8 g/dL Low 13.0-17.0 [facility] Comment on above: Performed By: #### C BCA, CMP ####[facility] ([id number])[address] [address] Lymphocytes (Bld) [#/Vol] 1.2 10*3/uL Normal 1.0-3.5 [facility] Comment on above: Performed By: #### C BCA, CMP ####[facility] ([id number])[address] [address] [place] [address] Lymphocytes/100 WBC (Bld) 27.6 % Normal [facility] Comment on above: Performed By: #### C BCA, CMP ####[facility] ([id number])[address] [address] MCH (RBC) [Entitic mass] 31.6 pg Normal 27-34 [facility] Comment on above: Performed By: #### C BCA, CMP ####[facility] ([id number])[address] [address], [place] [address] MCHC (RBC) [Mass/Vol] 34.9 g/dL Normal 32-36 [facility] Comment on above: Performed By: #### C BCA, CMP ####[facility] ([id number])[address] [address] [place] [address] MCV (RBC) [Entitic vol] 91 fL Normal 80-100 [facility] Comment on above: Performed By: #### C BCA, CMP ####[facility] ([id number])[address], [place] [address] Monocytes (Bld) [#/Vol] 0.2 10*3/uL Normal 0-0.9 [facility] Comment on above: Performed By: #### C ZACHARY, CMP ####[facility] ([id number])[address], [place] [address] Monocytes/100 WBC (Bld) 5.1 % Normal [facility] Comment on above: Performed By: #### C ZACHARY, CMP ####[facility] ([id number])[address] [address] Neutrophils (Bld) [#/Vol] 2.7 10*3/uL Normal 1.5-6.6 [facility] Comment on above: Performed By: #### Thais SHARMA, CMP ####[facility] ([id number])[address], [place] [address] OVALOCYTE 1+ Abnormal NONE [facility] Comment on above: Performed By: #### Thais SHARMA, CMP ####[facility] ([id number])[address], [place] [address] Platelet mean volume (Bld) [Entitic vol] 7.1 fL Normal 7-12 [facility] Comment on above: Performed By: #### C ZACHARY, CMP ####[facility] ([id number])[address], [place] [address] Platelets (Bld) [#/Vol] 257 10*3/uL Normal 150-450 [facility] Comment on above: Performed By: #### C ZACHARY, CMP ####[facility] ([id number])[address], [place] [address] POLYCHROMASIA 1+ Abnormal NONE [facility] Comment on above: Performed By: #### C ZACHARY, CMP ####[facility] ([id number])[address] [address] RBC COUNT 3.10 X10E12/L Low 4.10-5.70 [facility] Comment on above: Performed By: #### C BCA, CMP ####[facility] ([id number])[address] [address] SEG NEUTROPHIL 64.2 % Normal [facility] Comment on above: Performed By: #### C BCA, CMP ####[facility] ([id number])[address], [place] [address] WBC (Bld) [#/Vol] 4.2 10*3/uL Normal 4.0-11.0 [facility] Comment on above: Performed By: #### C BCA, CMP ####[facility] ([id number])[address] [address] COMPREHENSIVE METABOLIC PANE [place] 04-16-2024 Albumin [Mass/Vol] 3.8 g/dL Normal 3.2-5.3 [facility] Comment on above: Performed By: #### C BCA, CMP ####[facility] ([id number])[address] [address] ALP [Catalytic activity/Vol] 71 U/L Normal 39-130 [facility] Comment on above: Performed By: #### C BCA, CMP ####[facility] ([id number])[address] [address] ALT [Catalytic activity/Vol] 19 U/L Normal 0-40 [facility] Comment on above: Performed By: #### C BCA, CMP ####[facility] ([id number])[address] [address] Anion gap [Moles/Vol] 12 mmol/L Normal 5-15 [facility] Comment on above: Performed By: #### C BCA, CMP ####[facility] ([id number])[address], [place] [address] AST [Catalytic activity/Vol] 16 U/L Normal 0-41 [facility] Comment on above: Performed By: #### C BCA, CMP ####[facility] ([id number])[address], [place] [address] Bilirubin [Mass/Vol] 0.7 mg/dL Normal 0.3-1.2 [facility] Comment on above: Performed By: #### C BCA, CMP ####[facility] ([id number])[address] [address], [place] [address] Calcium [Mass/Vol] 8.4 mg/dL Low 8.5-10.5 [facility] Comment on above: Performed By: #### C BCA, CMP ####[facility] ([id number])[address], [place] [address] Chloride [Moles/Vol] 102 mmol/L Normal 98-109 [facility] Comment on above: Performed By: #### C BCA, CMP ####[facility] ([id number])[address] [address], [place] [address] CO2 [Moles/Vol] 24 mmol/L Normal 22-32 [facility] Comment on above: Performed By: #### C BCA, CMP ####[facility] ([id number])[address], [place] [address] Creatinine [Mass/Vol] 0.60 mg/dL Normal 0.60-1.30 [facility] Comment on above: Result Comment: METH OD TRACEABLE TO IDMS STANDARD Performed By: #### C BCA, CMP ####[facility] ([id number])[address], [place] [address] eGFR (CKD-EPI) NON-RACE DEPENDENT >90 Normal >59 [facility] Comment on above: Result Comment: Reported eGFR is based on the CKD-EPI 2020 equation that does not use a race coefficient. Performed By: #### C BCA, CMP ####[facility] ([id number])[address] [address] [address] Glucose [Mass/Vol] 147 mg/dL High 65-99 [facility] Comment on above: Performed By: #### C BCA, CMP ####[facility] ([id number])[address] [address] Potassium [Moles/Vol] 3.8 mmol/L Normal 3.5-5.0 [facility] Comment on above: Performed By: #### C BCA, CMP ####[facility] ([id number])[address] [address] Protein [Mass/Vol] 5.6 g/dL Low 6.0-8.0 [facility] Comment on above: Performed By: #### C BCA, CMP ####[facility] ([id number])[address] [address] [address] Sodium [Moles/Vol] 138 mmol/L Normal 134-146 [facility] Comment on above: Performed By: #### C BCA, CMP ####[facility] ([id number])[address] [place] [address] Urea nitrogen [Mass/Vol] 13 mg/dL Normal 5-27 [facility] Comment on above: Performed By: #### C BCA, CMP ####[facility] ([id number])[address] [address] [address] Glucose Glucometer (BldC) [M ass/Vol]on 04-16-2024 Glucose [Mass/Vol] 137 mg/dL High 65-99 [facility] Glucose [Mass/Vol] 145 mg/dL High 65-99 [facility] Glucose [Mass/Vol] 144 mg/dL High 65-99 [facility] Glucose [Mass/Vol] 151 mg/dL High 65-99 [facility] Glucose [Mass/Vol] 148 mg/dL High 65-99 [facility] HGB AND HCTon 04-16-2024 Hematocrit (Bld) [Volume fraction] 26.4 % Low 39-49 [facility] Comment on above: Performed By: #### C ZACHARY, [facility], [address]-4 #### [facility] ([id number]) [address] [place] [address] Hemoglobin (Bld) [Mass/Vol] 9.4 g/dL Low 13.0-17.0 [facility] Comment on above: Performed By: #### C BCA, [facility], [address]-1 #### [facility] ([id number]) [address] [place] [address] Hematocrit (Bld) [Volume fraction] 30.2 % Low 39-49 [facility] Comment on above: Performed By: #### H H ####[facility] [facility] ([id number])[address], [address], [place] [address] Hemoglobin (Bld) [Mass/Vol] 10.5 g/dL Low 13.0-17.0 [facility] Comment on above: Performed By: #### H H ####[facility] ([id number])[address], [address], [place] [address] Hematocrit (Bld) [Volume fraction] 27.8 % Low 39-49 [facility] Comment on above: Performed By: #### H H ####[facility] ([id number])[address], [address], [place] [address] Hemoglobin (Bld) [Mass/Vol] 9.6 g/dL Low 13.0-17.0 [facility] Comment on above: Performed By: #### H H ####[facility] ([id number])[address], [address], [place] [address] CBC AND AUTO DIFFon 04-15-20 24 Eosinophils (Bld) [#/Vol] 0.3 10*3/uL Normal 0.0-0.4 [facility] Comment on above: Performed By: #### C BCA, CMP ####[facility] ([id number])[address] [address], [place] [address] Eosinophils/100 WBC (Bld) 5.0 % Normal [facility] Comment on above: Performed By: #### C ZACHARY, CMP ####[facility] ([id number])[address] [address] Erythrocyte distribution width (RBC) [Ratio] 16.0 % High 11.5-15.0 [facility] Comment on above: Performed By: #### C BCA, CMP ####[facility] ([id number])[address] [address] Hematocrit (Bld) [Volume fraction] 25.9 % Low 39-49 [facility] Comment on above: Performed By: #### C BCA, CMP ####[facility] ([id number])[address] [address], [place] [address] Hemoglobin (Bld) [Mass/Vol] 9.0 g/dL Low 13.0-17.0 [facility] Comment on above: Performed By: #### C BCA, CMP ####[facility] ([id number])[address] [address] Lymphocytes (Bld) [#/Vol] 1.6 10*3/uL Normal 1.0-3.5 [facility] Comment on above: Performed By: #### C BCA, CMP ####[facility] ([id number])[address], [address] [address] Lymphocytes/100 WBC (Bld) 32.0 % Normal [facility] Comment on above: Performed By: #### C BCA, CMP ####[facility] ([id number])[address], [address] [address] MCH (RBC) [Entitic mass] 31.2 pg Normal 27-34 [facility] Comment on above: Performed By: #### C BCA, CMP ####[facility] ([id number])[address] [address] MCHC (RBC) [Mass/Vol] 34.7 g/dL Normal 32-36 [facility] Comment on above: Performed By: #### C BCA, CMP ####[facility] ([id number])[address] [address] [address] MCV (RBC) [Entitic vol] 90 fL Normal 80-100 [facility] Comment on above: Performed By: #### C BCA, CMP ####[facility] ([id number])[address] [address] Monocytes (Bld) [#/Vol] 0.4 10*3/uL Normal 0-0.9 [facility] Comment on above: Performed By: #### C BCA, CMP ####[facility] ([id number])[address], [address] [address] Monocytes/100 WBC (Bld) 9.0 % Normal [facility] Comment on above: Performed By: #### C BCA, CMP ####[facility] ([id number])[address], [address] [address] Neutrophils (Bld) [#/Vol] 2.7 10*3/uL Normal 1.5-6.6 [facility] Comment on above: Performed By: #### C BCA, CMP ####[facility] ([id number])[address], [address], [place] [address] Platelet mean volume (Bld) [Entitic vol] 7.0 fL Normal 7-12 [facility] Comment on above: Performed By: #### C BCA, CMP ####[facility] ([id number])[address], [address], [place] [address] Platelets (Bld) [#/Vol] 225 10*3/uL Normal 150-450 [facility] Comment on above: Performed By: #### C ZACHARY, CMP ####[facility] ([id number])[address], [address], [place] [address] POLYCHROMASIA 1+ Abnormal NONE [facility] Comment on above: Performed By: #### C BCA, CMP ####[facility] ([id number])[address], [address] [address] RBC COUNT 2.88 X10E12/L Low 4.10-5.70 [facility] Comment on above: Performed By: #### C BCA, CMP ####[facility] ([id number])[address], [address], [place] [address] SEG NEUTROPHIL 54.0 % Normal [facility] Comment on above: Performed By: #### C BCA, CMP ####[facility] ([id number])[address], [address], [place] [address] WBC (Bld) [#/Vol] 5.0 10*3/uL Normal 4.0-11.0 [facility] Comment on above: Performed By: #### C BCA, CMP ####[facility] ([id number])[address], [address] [address] COMPREHENSIVE METABOLIC PANE [place] 04-15-2024 Albumin [Mass/Vol] 3.5 g/dL Normal 3.2-5.3 [facility] Comment on above: Performed By: #### C BCA, CMP ####[facility] ([id number])[address], [address], [place] [address] ALP [Catalytic activity/Vol] 64 U/L Normal 39-130 [facility] Comment on above: Performed By: #### C BCA, CMP ####[facility] ([id number])[address], [address], [place] [address] ALT [Catalytic activity/Vol] 18 U/L Normal 0-40 [facility] Comment on above: Performed By: #### C BCA, CMP ####[facility] ([id number])[address], [address], [place] [address] Anion gap [Moles/Vol] 8 mmol/L Normal 5-15 [facility] Comment on above: Performed By: #### C BCA, CMP ####[facility] ([id number])[address], [address], [place] [address] AST [Catalytic activity/Vol] 18 U/L Normal 0-41 [facility] Comment on above: Performed By: #### C BCA, CMP ####[facility] ([id number])[address], [address], [place] [address] Bilirubin [Mass/Vol] 0.7 mg/dL Normal 0.3-1.2 [facility] Comment on above: Performed By: #### C BCA, CMP ####[facility] ([id number])[address], [address], [place] [address] Calcium [Mass/Vol] 8.3 mg/dL Low 8.5-10.5 [facility] Comment on above: Performed By: #### C BCA, CMP ####[facility] ([id number])[address], [address], [place] [address] Chloride [Moles/Vol] 100 mmol/L Normal 98-109 [facility] Comment on above: Performed By: #### C BCA, CMP ####[facility] ([id number])[address], [address], [place] [address] CO2 [Moles/Vol] 28 mmol/L Normal 22-32 [facility] Comment on above: Performed By: #### C BCA, CMP ####[facility] ([id number])[address] [address], [place] [address] Creatinine [Mass/Vol] 0.56 mg/dL Low 0.60-1.30 [facility] Comment on above: Result Comment: METH OD TRACEABLE TO IDMS STANDARD Performed By: #### C BCA, CMP ####[facility] ([id number])[address] [address], [place] [address] eGFR (CKD-EPI) NON-RACE DEPENDENT >90 Normal >59 [facility] Comment on above: Result Comment: Reported eGFR is based on the CKD-EPI 2020 equation that does not use a race coefficient. Performed By: #### C BCA, CMP ####[facility] ([id number])[address] [address], [place] [address] Glucose [Mass/Vol] 152 mg/dL High 65-99 [facility] Comment on above: Performed By: #### C BCA, CMP ####[facility] ([id number])[address] [address], [place] [address] Potassium [Moles/Vol] 4.2 mmol/L Normal 3.5-5.0 [facility] Comment on above: Performed By: #### C BCA, CMP ####[facility] ([id number])[address] [address], [place] [address] Protein [Mass/Vol] 5.4 g/dL Low 6.0-8.0 [facility] Comment on above: Performed By: #### C BCA, CMP ####[facility] ([id number])[address] [place] [address] Sodium [Moles/Vol] 136 mmol/L Normal 134-146 [facility] Comment on above: Performed By: #### C BCA, CMP ####[facility] ([id number])[address], [address] [place] [address] Urea nitrogen [Mass/Vol] 14 mg/dL Normal 5-27 [facility] Comment on above: Performed By: #### C BCA, CMP ####[facility] ([id number])[address], [address] [place] [address] Glucose Glucometer (BldC) [M ass/Vol]on 04-15-2024 Glucose [Mass/Vol] 159 mg/dL High 65-99 [facility] Glucose [Mass/Vol] 146 mg/dL High 65-99 [facility] Glucose [Mass/Vol] 145 mg/dL High 65-99 [facility] Glucose [Mass/Vol] 153 mg/dL High 65-99 [facility] Glucose [Mass/Vol] 164 mg/dL High 65-99 [facility] HGB AND HCTon 04-15-2024 Hematocrit (Bld) [Volume fraction] 27.1 % Low 39-49 [facility] Comment on above: Performed By: #### H H ####[facility] ([id number])[address], [place] [address] Hemoglobin (Bld) [Mass/Vol] 9.3 g/dL Low 13.0-17.0 [facility] Comment on above: Performed By: #### H H ####[facility] ([id number])[address] [place] [address] Hematocrit (Bld) [Volume fraction] 26.9 % Low 39-49 [facility] Comment on above: Performed By: #### H H ####[facility] ([id number])[address], [address] [address] Hemoglobin (Bld) [Mass/Vol] 9.5 g/dL Low 13.0-17.0 [facility] Comment on above: Performed By: #### H H ####[facility] ([id number])[address], [address], [place] [address] Hematocrit (Bld) [Volume fraction] 27.2 % Low 39-49 [facility] Comment on above: Performed By: #### H H ####[facility] ([id number])[address], [address], [place] [address] Hemoglobin (Bld) [Mass/Vol] 9.4 g/dL Low 13.0-17.0 [facility] Comment on above: Performed By: #### H H ####[facility] ([id number])[address], [address], [place] [address] CBC AND AUTO DIFFon 04-14-20 24 Band form neutrophils/100 WBC (Bld) 1.0 % Normal [facility] Comment on above: Performed By: #### U A #### [facility] ([id number]) [address], [address] [place] [address] Eosinophils (Bld) [#/Vol] 0.5 10*3/uL High 0.0-0.4 [facility] Comment on above: Performed By: #### U A #### [facility] ([id number]) [address], [address] [place] [address] Eosinophils/100 WBC (Bld) 7.0 % Normal [facility] Comment on above: Performed By: #### U A #### [facility] ([id number]) [address], [address] [place] [address] Erythrocyte distribution width (RBC) [Ratio] 15.8 % High 11.5-15.0 [facility] Comment on above: Performed By: #### U A #### [facility] ([id number]) [address] [address] [place] [address] Hematocrit (Bld) [Volume fraction] 25.8 % Low 39-49 [facility] Comment on above: Performed By: #### U A #### [facility] ([id number]) [address] [address] [place] [address] Hemoglobin (Bld) [Mass/Vol] 9.0 g/dL Low 13.0-17.0 [facility] Comment on above: Performed By: #### U A #### [facility] ([id number]) [address] [address] [place] [address] IMMATURE MONONUCLEAR 1.0 % Normal [facility] Comment on above: Performed By: #### U A #### [facility] ([id number]) [address] [address] [place] [address] Lymphocytes (Bld) [#/Vol] 1.7 10*3/uL Normal 1.0-3.5 [facility] Comment on above: Performed By: #### U A #### [facility] ([id number]) [address] [address] [place] [address] Lymphocytes/100 WBC (Bld) 23.0 % Normal [facility] Comment on above: Performed By: #### U A #### [facility] ([id number]) [address] [address] [place] [address] MCH (RBC) [Entitic mass] 31.0 pg Normal 27-34 [facility] Comment on above: Performed By: #### U A #### [facility] ([id number]) [address], [address] [place] [address] MCHC (RBC) [Mass/Vol] 34.9 g/dL Normal 32-36 [facility] Comment on above: Performed By: #### U A #### [facility] ([id number]) [address], [address] [place] [address] MCV (RBC) [Entitic vol] 89 fL Normal 80-100 [facility] Comment on above: Performed By: #### U A #### [facility] ([id number]) [address], [address] [place] [address] Metamyelocytes/100 WBC (Bld) 1.0 % Normal [facility] Comment on above: Performed By: #### U A #### [facility] ([id number]) [address], [address] [place] [address] Monocytes (Bld) [#/Vol] 0.5 10*3/uL Normal 0-0.9 [facility] Comment on above: Performed By: #### U A #### [facility] ([id number]) [address], [address] [place] [address] Monocytes/100 WBC (Bld) 7.0 % Normal [facility] Comment on above: Performed By: #### U A #### [facility] ([id number]) [address], [address] [place] [address] MYELOCYTE 1.0 % Normal [facility] Comment on above: Performed By: #### U A #### [facility] ([id number]) [address], [address] [place] [address] Neutrophils (Bld) [#/Vol] 4.4 10*3/uL Normal 1.5-6.6 [facility] Comment on above: Performed By: #### U A #### [facility] ([id number]) [address], [address] [place] [address] NUCLEATED RBC 1.0 /100 WBC Normal 0.0-1.0 [facility] Comment on above: Performed By: #### U A #### [facility] ([id number]) [address], [address] [place] [address] Platelet mean volume (Bld) [Entitic vol] 7.2 fL Normal 7-12 [facility] Comment on above: Performed By: #### U A #### [facility] ([id number]) [address], [address] [place] [address] Platelets (Bld) [#/Vol] 241 10*3/uL Normal 150-450 [facility] Comment on above: Performed By: #### U A #### [facility] ([id number]) [address], [address] [place] [address] POLYCHROMASIA 1+ Abnormal NONE [facility] Comment on above: Performed By: #### U A #### [facility] ([id number]) [address], [address] [place] [address] RBC COUNT 2.90 X10E12/L Low 4.10-5.70 [facility] Comment on above: Performed By: #### U A #### [facility] ([id number]) [address], [address] [place] [address] SEG NEUTROPHIL 59.0 % Normal [facility] Comment on above: Performed By: #### U A #### [facility] ([id number]) [address], [address] [place] [address] WBC (Bld) [#/Vol] 7.4 10*3/uL Normal 4.0-11.0 [facility] Comment on above: Performed By: #### U A #### [facility] ([id number]) [address] [place] [address] COMPREHENSIVE METABOLIC PANE [place] 04-14-2024 Albumin [Mass/Vol] 3.6 g/dL Normal 3.2-5.3 [facility] Comment on above: Performed By: #### U A #### [facility] ([id number]) [address], [address] [place] [address] ALP [Catalytic activity/Vol] 55 U/L Normal 39-130 [facility] Comment on above: Performed By: #### U A #### [facility] ([id number]) [address], [address] [place] [address] ALT [Catalytic activity/Vol] 10 U/L Normal 0-40 [facility] Comment on above: Performed By: #### U A #### [facility] ([id number]) [address], [address] [place] [address] Anion gap [Moles/Vol] 10 mmol/L Normal 5-15 [facility] Comment on above: Performed By: #### U A #### [facility] ([id number]) [address] [place] [address] AST [Catalytic activity/Vol] 12 U/L Normal 0-41 [facility] Comment on above: Performed By: #### U A #### [facility] ([id number]) [address] [place] [address] Bilirubin [Mass/Vol] 0.7 mg/dL Normal 0.3-1.2 [facility] Comment on above: Performed By: #### U A #### [facility] ([id number]) [address] [place] [address] Calcium [Mass/Vol] 8.4 mg/dL Low 8.5-10.5 [facility] Comment on above: Performed By: #### U A #### [facility] ([id number]) [address] [place] [address] Chloride [Moles/Vol] 100 mmol/L Normal 98-109 [facility] Comment on above: Performed By: #### U A #### [facility] ([id number]) [address] [place] [address] CO2 [Moles/Vol] 26 mmol/L Normal 22-32 [facility] Comment on above: Performed By: #### U A #### [facility] ([id number]) [address] [place] [address] Creatinine [Mass/Vol] 0.61 mg/dL Normal 0.60-1.30 [facility] Comment on above: Result Comment: METH OD TRACEABLE TO IDMS STANDARD Performed By: #### U A #### [facility] ([id number]) [address] [place] [address] eGFR (CKD-EPI) NON-RACE DEPENDENT >90 Normal >59 [facility] Comment on above: Result Comment: Reported eGFR is based on the CKD-EPI 2020 equation that does not use a race coefficient. Performed By: #### U A #### [facility] ([id number]) [address] [place] [address] Glucose [Mass/Vol] 189 mg/dL High 65-99 [facility] Comment on above: Performed By: #### U A #### [facility] ([id number]) [address] [place] [address] Potassium [Moles/Vol] 4.0 mmol/L Normal 3.5-5.0 [facility] Comment on above: Performed By: #### U A #### [facility] ([id number]) [address] [place] [address] Protein [Mass/Vol] 5.6 g/dL Low 6.0-8.0 [facility] Comment on above: Performed By: #### U A #### [facility] ([id number]) [address] [place] [address] Sodium [Moles/Vol] 136 mmol/L Normal 134-146 [facility] Comment on above: Performed By: #### U A #### [facility] ([id number]) [address] [place] [address] Urea nitrogen [Mass/Vol] 23 mg/dL Normal 5-27 [facility] Comment on above: Performed By: #### U A #### [facility] ([id number]) [address] [place] [address] Glucose Glucometer (BldC) [M ass/Vol]on 04-14-2024 Glucose [Mass/Vol] 148 mg/dL High 65-99 [facility] Glucose [Mass/Vol] 158 mg/dL High 65-99 [facility] Glucose [Mass/Vol] 180 mg/dL High 65-99 [facility] Glucose [Mass/Vol] 185 mg/dL High 65-99 [facility] HGB AND HCTon 04-14-2024 Hematocrit (Bld) [Volume fraction] 26.1 % Low 39-49 [facility] Comment on above: Performed By: #### U A #### [facility] ([id number]) [address] [place] [address] Hemoglobin (Bld) [Mass/Vol] 9.2 g/dL Low 13.0-17.0 [facility] Comment on above: Performed By: #### U A #### [facility] ([id number]) [address] [place] [address] Hematocrit (Bld) [Volume fraction] 26.2 % Low 39-49 [facility] Comment on above: Performed By: #### U A #### [facility] ([id number]) [address] [place] [address] Hemoglobin (Bld) [Mass/Vol] 8.7 g/dL Low 13.0-17.0 [facility] Comment on above: Performed By: #### U A #### [facility] ([id number]) [address] [place] [address] TTG AB IGA IGGon 04-14-2024 TTG AB IGA <1.2 Normal <4.0 (Negative) [facility] TTG AB IGG <1.2 Normal <6.0 (Negative) [facility] Comment on above: Result Comment: NOTE Test Performed by: [facility] [address] [place] [address] [employer]: Naty Doyle Ph.D.; CLIA# [id number] CBC AND AUTO DIFFon 04-13-20 Eosinophils (Bld) [#/Vol] 0.2 10*3/uL Normal 0.0-0.4 [facility] Comment on above: Performed By: #### C BCA, CMP ####[facility] ([id number])[address] [address] Eosinophils/100 WBC (Bld) 3.0 % Normal [facility] Comment on above: Performed By: #### C BCA, CMP ####[facility] ([id number])[address] [address], [place] [address] Erythrocyte distribution width (RBC) [Ratio] 14.4 % Normal 11.5-15.0 [facility] Comment on above: Performed By: #### C BCA, CMP ####[facility] ([id number])[address] [address] Hematocrit (Bld) [Volume fraction] 17.2 % Low 39-49 [facility] Comment on above: Performed By: #### C BCA, CMP ####[facility] ([id number])[address], [place] [address] Hemoglobin (Bld) [Mass/Vol] 5.8 g/dL Critically low 13.0-17.0 [facility] Comment on above: Performed By: #### C BCA, CMP ####[facility] ([id number])[address], [place] [address] Lymphocytes (Bld) [#/Vol] 2.1 10*3/uL Normal 1.0-3.5 [facility] Comment on above: Performed By: #### C BCA, CMP ####[facility] ([id number])[address], [address] [address] Lymphocytes/100 WBC (Bld) 27.0 % Normal [facility] Comment on above: Performed By: #### C BCA, CMP ####[facility] ([id number])[address], [address], [place] [address] MCH (RBC) [Entitic mass] 30.4 pg Normal 27-34 [facility] Comment on above: Performed By: #### C BCA, CMP ####[facility] ([id number])[address], [address], [place] [address] MCHC (RBC) [Mass/Vol] 33.9 g/dL Normal 32-36 [facility] Comment on above: Performed By: #### C BCA, CMP ####[facility] ([id number])[address], [address] [address] MCV (RBC) [Entitic vol] 90 fL Normal 80-100 [facility] Comment on above: Performed By: #### C BCA, CMP ####[facility] ([id number])[address], [address], [place] [address] Metamyelocytes/100 WBC (Bld) 1.0 % Normal [facility] Comment on above: Performed By: #### C BCA, CMP ####[facility] ([id number])[address], [address] [address] Monocytes (Bld) [#/Vol] 0.4 10*3/uL Normal 0-0.9 [facility] Comment on above: Performed By: #### C BCA, CMP ####[facility] ([id number])[address] [address] Monocytes/100 WBC (Bld) 5.0 % Normal [facility] Comment on above: Performed By: #### C ZACHARY, CMP ####[facility] ([id number])[address], [address], [place] [address] Neutrophils (Bld) [#/Vol] 4.8 10*3/uL Normal 1.5-6.6 [facility] Comment on above: Performed By: #### C BCA, CMP ####[facility] ([id number])[address], [address] [address] NUCLEATED RBC 1.0 /100 WBC Normal 0.0-1.0 [facility] Comment on above: Performed By: #### C BCA, CMP ####[facility] ([id number])[address] [address] Platelet mean volume (Bld) [Entitic vol] 7.3 fL Normal 7-12 [facility] Comment on above: Performed By: #### C BCA, CMP ####[facility] ([id number])[address], [address] [address] Platelets (Bld) [#/Vol] 259 10*3/uL Normal 150-450 [facility] Comment on above: Performed By: #### C BCA, CMP ####[facility] ([id number])[address], [address] [address] POLYCHROMASIA 2+ Abnormal NONE [facility] Comment on above: Performed By: #### C BCA, CMP ####[facility] ([id number])[address], [place] [address] RBC COUNT 1.92 X10E12/L Low 4.10-5.70 [facility] Comment on above: Performed By: #### C BCA, CMP ####[facility] ([id number])[address] [address] SEG NEUTROPHIL 64.0 % Normal [facility] Comment on above: Performed By: #### C BCA, CMP ####[facility] ([id number])[address], [place] [address] WBC (Bld) [#/Vol] 7.6 10*3/uL Normal 4.0-11.0 [facility] Comment on above: Performed By: #### C BCA, CMP ####[facility] ([id number])[address], [address], [place] [address] COMPREHENSIVE METABOLIC PANE Delonte 04-13-2024 Albumin [Mass/Vol] 3.3 g/dL Normal 3.2-5.3 [facility] Comment on above: Performed By: #### C BCA, CMP ####[facility] ([id number])[address], [address] [address] ALP [Catalytic activity/Vol] 48 U/L Normal 39-130 [facility] Comment on above: Performed By: #### C BCA, CMP ####[facility] ([id number])[address], [address], [place] [address] ALT [Catalytic activity/Vol] 8 U/L Normal 0-40 [facility] Comment on above: Performed By: #### C BCA, CMP ####[facility] ([id number])[address], [address], [place] [address] Anion gap [Moles/Vol] 8 mmol/L Normal 5-15 [facility] Comment on above: Performed By: #### C BCA, CMP ####[facility] ([id number])[address], [address], [place] [address] AST [Catalytic activity/Vol] 7 U/L Normal 0-41 [facility] Comment on above: Performed By: #### C BCA, CMP ####[facility] ([id number])[address], [address] [address] Bilirubin [Mass/Vol] 0.5 mg/dL Normal 0.3-1.2 [facility] Comment on above: Performed By: #### C BCA, CMP ####[facility] ([id number])[address], [address] [address] Calcium [Mass/Vol] 8.4 mg/dL Low 8.5-10.5 [facility] Comment on above: Performed By: #### C BCA, CMP ####[facility] ([id number])[address], [address], [place] [address] Chloride [Moles/Vol] 102 mmol/L Normal 98-109 [facility] Comment on above: Performed By: #### C BCA, CMP ####[facility] ([id number])[address], [address], [place] [address] CO2 [Moles/Vol] 27 mmol/L Normal 22-32 [facility] Comment on above: Performed By: #### C BCA, CMP ####[facility] ([id number])[address], [address], [place] [address] Creatinine [Mass/Vol] 0.64 mg/dL Normal 0.60-1.30 [facility] Comment on above: Result Comment: METH OD TRACEABLE TO IDMS STANDARD Performed By: #### C BCA, CMP ####[facility] ([id number])[address] [address], [place] [address] eGFR (CKD-EPI) NON-RACE DEPENDENT >90 Normal >59 [facility] Comment on above: Result Comment: Reported eGFR is based on the CKD-EPI 2021 equation that does not use a race coefficient. Performed By: #### C BCA, CMP ####[facility] ([id number])[address] [address] [address] Glucose [Mass/Vol] 218 mg/dL High 65-99 [facility] Comment on above: Performed By: #### C BCA, CMP ####[facility] ([id number])[address] [address], [place] [address] Potassium [Moles/Vol] 3.7 mmol/L Normal 3.5-5.0 [facility] Comment on above: Performed By: #### C BCA, CMP ####[facility] ([id number])[address] [address] [place] [address], [place] [address] Protein [Mass/Vol] 4.9 g/dL Low 6.0-8.0 [facility] Comment on above: Performed By: #### C BCA, CMP ####[facility] ([id number])[address] [address] [address] Sodium [Moles/Vol] 137 mmol/L Normal 134-146 [facility] Comment on above: Performed By: #### C BCA, CMP ####[facility] ([id number])[address] [address] [place] [address] Urea nitrogen [Mass/Vol] 35 mg/dL High 5-27 [facility] Comment on above: Performed By: #### C BCA, CMP ####[facility] ([id number])[address] [address], [place] [address] CT CTA ABD AND PELVISon 06-1 8-[address]24 CT CTA ABD AND PELVIS CT CTA ABD AND PEL VIS Lower GI bleed and significant drop in [...] Ruth MD on 04/13/2024 5:08 PM Normal [facility] Glucose Glucometer (BldC) [M ass/Vol]on 04-13-2024 Glucose [Mass/Vol] 195 mg/dL High 65-99 [facility] Glucose [Mass/Vol] 215 mg/dL High 65-99 [facility] Glucose [Mass/Vol] 214 mg/dL High 65-99 [facility] Glucose [Mass/Vol] 208 mg/dL High 65-99 [facility] HGB AND HCTon 04-13-2024 Hematocrit (Bld) [Volume fraction] 24.2 % Low 39-49 [facility] Comment on above: Performed By: #### U A #### [facility] ([id number]) [address] [place] [address] Hemoglobin (Bld) [Mass/Vol] 8.5 g/dL Low 13.0-17.0 [facility] Comment on above: Performed By: #### U A #### [facility] ([id number]) [address], [address] [place] [address] Hematocrit (Bld) [Volume fraction] 22.5 % Low 39-49 [facility] Comment on above: Performed By: #### H H ####[facility] ([id number])[address], [address], [place] [address] Hemoglobin (Bld) [Mass/Vol] 7.8 g/dL Low 13.0-17.0 [facility] Comment on above: Performed By: #### H H ####[facility] ([id number])[address], [place] [address] Hematocrit (Bld) [Volume fraction] 16.3 % Low 39-49 [facility] Comment on above: Performed By: #### H H ####[facility] ([id number])[address], [address], [place] [address] Hemoglobin (Bld) [Mass/Vol] 5.9 g/dL Critically low 13.0-17.0 [facility] Comment on above: Performed By: #### H H ####[facility] ([id number])[address] [address], [place] [address] CBC AND AUTO DIFFon 04-12-20 24 ABSOLUTE BASOPHIL 0.0 X10E9/L Normal 0.0-0.2 [facility] Comment on above: Performed By: #### C BCA, CMP #### [facility] ([id number]) [address] [place] [address] ABSOLUTE NEUTROPHIL 4.8 X10E9/L Normal 1.5-6.6 [facility] Comment on above: Performed By: #### C BCA, CMP #### [facility] ([id number]) [address], [address] [place] [address] Basophils/100 WBC (Bld) 0.6 % Normal [facility] Comment on above: Performed By: #### C BCA, CMP #### [facility] ([id number]) [address] [place] [address] Eosinophils (Bld) [#/Vol] 0.0 10*3/uL Normal 0.0-0.4 [facility] Comment on above: Performed By: #### C ZACHARY, CMP #### [facility] ([id number]) [address], [address] [place] [address] Eosinophils/100 WBC (Bld) 0.5 % Normal [facility] Comment on above: Performed By: #### C ZACHARY, CMP #### [facility] ([id number]) [address], [address] [place] [address] Erythrocyte distribution width (RBC) [Ratio] 14.4 % Normal 11.5-15.0 [facility] Comment on above: Performed By: #### C BCA, CMP #### [facility] ([id number]) [address], [address] [place] [address] Hematocrit (Bld) [Volume fraction] 22.5 % Low 39-49 [facility] Comment on above: Performed By: #### C BCA, CMP #### [facility] ([id number]) [address], [address] [place] [address] Hemoglobin (Bld) [Mass/Vol] 7.9 g/dL Low 13.0-17.0 [facility] Comment on above: Performed By: #### C BCA, CMP #### [facility] ([id number]) [address] [place] [address] Lymphocytes (Bld) [#/Vol] 1.6 10*3/uL Normal 1.0-3.5 [facility] Comment on above: Performed By: #### C BCA, CMP #### [facility] ([id number]) [address], [address] [place] [address] Lymphocytes/100 WBC (Bld) 22.9 % Normal [facility] Comment on above: Performed By: #### C ZACHARY, CMP #### [facility] ([id number]) [address], [address] [place] [address] MCH (RBC) [Entitic mass] 31.4 pg Normal 27-34 [facility] Comment on above: Performed By: #### C ZACHARY, CMP #### [facility] ([id number]) [address], [address] [place] [address] MCHC (RBC) [Mass/Vol] 35.1 g/dL Normal 32-36 [facility] Comment on above: Performed By: #### C BCA, CMP #### [facility] ([id number]) [address], [address] [place] [address] MCV (RBC) [Entitic vol] 90 fL Normal 80-100 [facility] Comment on above: Performed By: #### C BCA, CMP #### [facility] ([id number]) [address], [address] [place] [address] Monocytes (Bld) [#/Vol] 0.4 10*3/uL Normal 0-0.9 [facility] Comment on above: Performed By: #### C BCA, CMP #### [facility] ([id number]) [address], [address] [place] [address] Monocytes/100 WBC (Bld) 5.7 % Normal [facility] Comment on above: Performed By: #### C BCA, CMP #### [facility] ([id number]) [address], [address] [place] [address] Neutrophils/100 WBC (Bld) 70.3 % Normal [facility] Comment on above: Performed By: #### C BCA, CMP #### [facility] ([id number]) [address], [facility] [address] [place] [address] Platelet mean volume (Bld) [Entitic vol] 7.4 fL Normal 7-12 [facility] Comment on above: Performed By: #### C ZACHARY, CMP #### [facility] ([id number]) [address], [facility] [address] [place] [address] Platelets (Bld) [#/Vol] 281 10*3/uL Normal 150-450 [facility] Comment on above: Performed By: #### C BCA, CMP #### [facility] ([id number]) [address] [place] [address] RBC COUNT 2.52 X10E12/L Low 4.10-5.70 [facility] Comment on above: Performed By: #### C BCA, CMP #### [facility] ([id number]) [address] [place] [address] WBC (Bld) [#/Vol] 6.9 10*3/uL Normal 4.0-11.0 [facility] Comment on above: Performed By: #### C BCA, CMP #### [facility] ([id number]) [address], [address] [place] [address] COMPREHENSIVE METABOLIC PANE [place] 04-12-2024 Albumin [Mass/Vol] 3.9 g/dL Normal 3.2-5.3 [facility] Comment on above: Performed By: #### C BCA, CMP #### [facility] ([id number]) [address], [address] [place] [address] ALP [Catalytic activity/Vol] 58 U/L Normal 39-130 [facility] Comment on above: Performed By: #### C BCA, CMP #### [facility] ([id number]) [address], [address] [place] [address] ALT [Catalytic activity/Vol] 9 U/L Normal 0-40 [facility] Comment on above: Performed By: #### C BCA, CMP #### [facility] ([id number]) [address] [place] [address] Anion gap [Moles/Vol] 9 mmol/L Normal 5-15 [facility] Comment on above: Performed By: #### C BCA, CMP #### [facility] ([id number]) [address], [address] [place] [address] AST [Catalytic activity/Vol] 9 U/L Normal 0-41 [facility] Comment on above: Performed By: #### C BCA, CMP #### [facility] ([id number]) [address] [place] [address] Bilirubin [Mass/Vol] 0.6 mg/dL Normal 0.3-1.2 [facility] Comment on above: Performed By: #### C BCA, CMP #### [facility] ([id number]) [address], [address] [place] [address] Calcium [Mass/Vol] 8.8 mg/dL Normal 8.5-10.5 [facility] Comment on above: Performed By: #### C BCA, CMP #### [facility] ([id number]) [address], [address] [place] [address] Chloride [Moles/Vol] 104 mmol/L Normal 98-109 [facility] Comment on above: Performed By: #### C BCA, CMP #### [facility] ([id number]) [address], [address] [place] [address] CO2 [Moles/Vol] 27 mmol/L Normal 22-32 [facility] Comment on above: Performed By: #### C BCA, CMP #### [facility] ([id number]) [address], [address] [place] [address] Creatinine [Mass/Vol] 0.62 mg/dL Normal 0.60-1.30 [facility] Comment on above: Result Comment: METH OD TRACEABLE TO IDMS STANDARD Performed By: #### C BCA, CMP #### [facility] ([id number]) [address], [address] [place] [address] eGFR (CKD-EPI) NON-RACE DEPENDENT >90 Normal >59 [facility] Comment on above: Result Comment: Reported eGFR is based on the CKD-EPI 2020 equation that does not use a race coefficient. Performed By: #### C BCA, CMP #### [facility] ([id number]) [address] [place] [address] Glucose [Mass/Vol] 206 mg/dL High 65-99 [facility] Comment on above: Performed By: #### C BCA, CMP #### [facility] ([id number]) [address], [address] [place] [address] Potassium [Moles/Vol] 3.7 mmol/L Normal 3.5-5.0 [facility] Comment on above: Performed By: #### C BCA, CMP #### [facility] ([id number]) [address], [address] [place] [address] Protein [Mass/Vol] 5.8 g/dL Low 6.0-8.0 [facility] Comment on above: Performed By: #### C BCA, CMP #### [facility] ([id number]) [address] [place] [address] Sodium [Moles/Vol] 140 mmol/L Normal 134-146 [facility] Comment on above: Performed By: #### C ZACHARY, CMP #### [facility] ([id number]) [address], [address] [place] [address] Urea nitrogen [Mass/Vol] 24 mg/dL Normal 5-27 [facility] Comment on above: Performed By: #### C ZACHARY, CMP #### [facility] ([id number]) [address], [address] [place] [address] Glucose Glucometer (BldC) [M ass/Vol]on 04-12-2024 Glucose [Mass/Vol] 231 mg/dL High 65-99 [facility] Glucose [Mass/Vol] 201 mg/dL High 65-99 [facility] Glucose [Mass/Vol] 265 mg/dL High 65-99 [facility] Glucose [Mass/Vol] 242 mg/dL High 65-99 [facility] Laboratory comment Harsh (Repo rt)on 04-12-2024 PLATELET INHIB,P2Y12 324 PRU Normal [facility] Comment on above: Result Comment: Low hematocrit, low platelet count and some hereditary disorders may affect results. Normal platelet reactivity due to low P2Y12 inhibition response. The P2Y12 Test should be interpreted in conjunction with other clinical and lab data. Performed By: #### C ZACHARY, CMP #### [facility] ([id number]) [address], [address] [place] [address] MR BRAIN WO CONTon MR BRAIN WO [...] Metz MD on 04/12/2024 11:08 PM Normal [facility] CBC AND AUTO DIFFon 04-11-20 24 ABSOLUTE BASOPHIL 0.0 X10E9/L Normal 0.0-0.2 [facility] Comment on above: Performed By: #### C ZACHARY CMP, 48974-6 #### [facility] ([id number]) [address] [place] [address] ABSOLUTE NEUTROPHIL 5.2 X10E9/L Normal 1.5-6.6 [facility] Comment on above: Performed By: #### Thais SHARMA CMP, 75771-3 #### [facility] ([id number]) [address] [place] [address] Basophils/100 WBC (Bld) 0.6 % Normal [facility] Comment on above: Performed By: #### Thais SHARMA CMP, 82501-3 #### [facility] ([id number]) [address] [address] [place] [address] Eosinophils (Bld) [#/Vol] 0.0 10*3/uL Normal 0.0-0.4 [facility] Comment on above: Performed By: #### Thais SHARMA CMP, 78602-7 #### [facility] ([id number]) [address], [address] [place] [address] Eosinophils/100 WBC (Bld) 0.3 % Normal [facility] Comment on above: Performed By: #### C ZACHARY CMP, 94845-6 #### [facility] ([id number]) [address] [place] [address] Erythrocyte distribution width (RBC) [Ratio] 14.8 % Normal 11.5-15.0 [facility] Comment on above: Performed By: #### Thais SHARMA CMP, 51505-1 #### [facility] ([id number]) [address] [place] [address] Hematocrit (Bld) [Volume fraction] 22.2 % Low 39-49 [facility] Comment on above: Performed By: #### Thais SHARMA, CMP, 79509-0 #### [facility] ([id number]) [address] [place] [address] Hemoglobin (Bld) [Mass/Vol] 7.8 g/dL Low 13.0-17.0 [facility] Comment on above: Performed By: #### Thais SHARMA CMP, 99282-8 #### [facility] ([id number]) [address] [place] [address] Lymphocytes (Bld) [#/Vol] 1.2 10*3/uL Normal 1.0-3.5 [facility] Comment on above: Performed By: #### Thais SHARMA CMP, 43768-9 #### [facility] ([id number]) [address] [place] [address] Lymphocytes/100 WBC (Bld) 17.7 % Normal [facility] Comment on above: Performed By: #### C ZACHARY, CMP, 89429-6 #### [facility] ([id number]) [address] [place] [address] MCH (RBC) [Entitic mass] 31.6 pg Normal 27-34 [facility] Comment on above: Performed By: #### C BCA, CMP, 68484-8 #### [facility] ([id number]) [address] [place] [address] MCHC (RBC) [Mass/Vol] 35.3 g/dL Normal 32-36 [facility] Comment on above: Performed By: #### C BCA, CMP, 85017-8 #### [facility] ([id number]) [address] [place] [address] MCV (RBC) [Entitic vol] 90 fL Normal 80-100 [facility] Comment on above: Performed By: #### C BCA, CMP, 16107-0 #### [facility] ([id number]) [address], [address] [place] [address] Monocytes (Bld) [#/Vol] 0.4 10*3/uL Normal 0-0.9 [facility] Comment on above: Performed By: #### C BCA, CMP, 93014-0 #### [facility] ([id number]) [address], [address] [place] [address] Monocytes/100 WBC (Bld) 5.2 % Normal [facility] Comment on above: Performed By: #### C BCA, CMP, 87136-2 #### [facility] ([id number]) [address], [address] [place] [address] Neutrophils/100 WBC (Bld) 76.2 % Normal [facility] Comment on above: Performed By: #### C BCA, CMP, 71390-5 #### [facility] ([id number]) [address], [address] [place] [address] Platelet mean volume (Bld) [Entitic vol] 7.6 fL Normal 7-12 [facility] Comment on above: Performed By: #### C BCA, CMP, 05689-3 #### [facility] ([id number]) [address], [address] [place] [address] Platelets (Bld) [#/Vol] 280 10*3/uL Normal 150-450 [facility] Comment on above: Performed By: #### C BCA, CMP, 87661-7 #### [facility] ([id number]) [address], [address] [place] [address] RBC COUNT 2.48 X10E12/L Low 4.10-5.70 [facility] Comment on above: Performed By: #### C BCA, CMP, 06474-0 #### [facility] ([id number]) [address], [facility] [address] [place] [address] WBC (Bld) [#/Vol] 6.8 10*3/uL Normal 4.0-11.0 [facility] Comment on above: Performed By: #### C BCA, CMP, 33481-5 #### [facility] ([id number]) [address], [address] [place] [address] COMPREHENSIVE METABOLIC PANE [place] 04-11-2024 Albumin [Mass/Vol] 3.7 g/dL Normal 3.2-5.3 [facility] Comment on above: Performed By: #### C BCA, CMP, 59750-5 #### [facility] ([id number]) [address], [address] [place] [address] ALP [Catalytic activity/Vol] 52 U/L Normal 39-130 [facility] Comment on above: Performed By: #### C BCA, CMP, 83681-8 #### [facility] ([id number]) [address] [address] [place] [address] ALT [Catalytic activity/Vol] 9 U/L Normal 0-40 [facility] Comment on above: Performed By: #### C BCA, CMP, 52577-4 #### [facility] ([id number]) [address], [address] [place] [address] Anion gap [Moles/Vol] 8 mmol/L Normal 5-15 [facility] Comment on above: Performed By: #### C ZACHARY CMP, 21138-0 #### [facility] ([id number]) [address], [address] [place] [address] AST [Catalytic activity/Vol] 17 U/L Normal 0-41 [facility] Comment on above: Performed By: #### C ZACHARY, CMP, 01256-0 #### [facility] ([id number]) [address], [address] [place] [address] Bilirubin [Mass/Vol] 0.5 mg/dL Normal 0.3-1.2 [facility] Comment on above: Performed By: #### Thais SHARMA, CMP, 38772-5 #### [facility] ([id number]) [address], [address] [place] [address] Calcium [Mass/Vol] 8.5 mg/dL Normal 8.5-10.5 [facility] Comment on above: Performed By: #### C ZACHARY CMP, 98363-7 #### [facility] ([id number]) [address], [address] [place] [address] Chloride [Moles/Vol] 110 mmol/L High 98-109 [facility] Comment on above: Performed By: #### Thais SHARMA CMP, 68206-4 #### [facility] ([id number]) [address], [address] [place] [address] CO2 [Moles/Vol] 25 mmol/L Normal 22-32 [facility] Comment on above: Performed By: #### C ZACHARY, CMP, 07499-8 #### [facility] ([id number]) [address], [address] [place] [address] Creatinine [Mass/Vol] 0.72 mg/dL Normal 0.60-1.30 [facility] Comment on above: Result Comment: METH OD TRACEABLE TO IDMS STANDARD Performed By: #### C BCA, CMP, 23423-7 #### [facility] ([id number]) [address], [address] [place] [address] eGFR (CKD-EPI) NON-RACE DEPENDENT >90 Normal >59 [facility] Comment on above: Result Comment: Reported eGFR is based on the CKD-EPI 2020 equation that does not use a race coefficient. Performed By: #### C BCA, CMP, 74516-0 #### [facility] ([id number]) [address], [address] [place] [address] Glucose [Mass/Vol] 175 mg/dL High 65-99 [facility] Comment on above: Performed By: #### C BCA, CMP, 95640-4 #### [facility] ([id number]) [address], [address] [place] [address] Potassium [Moles/Vol] 4.2 mmol/L Normal 3.5-5.0 [facility] Comment on above: Result Comment: SPEC IMEN HEMOLYZED, RESULTS INCREASED MODERATELY HEMOLYZED Performed By: #### C BCA, CMP, 69374-6 #### [facility] ([id number]) [address], [address] [place] [address] Protein [Mass/Vol] 5.6 g/dL Low 6.0-8.0 [facility] Comment on above: Performed By: #### C BCA, CMP, 96311-2 #### [facility] ([id number]) [address], [address] [place] [address] Sodium [Moles/Vol] 143 mmol/L Normal 134-146 [facility] Comment on above: Performed By: #### C BCA, CMP, 66158-7 #### [facility] ([id number]) [address], [address] [place] [address] Urea nitrogen [Mass/Vol] 41 mg/dL High 5-27 [facility] Comment on above: Performed By: #### Thais SHARMA, NAHOMY, 32932-0 #### [facility] ([id number]) [address], [address] [place] [address] Glucose Glucometer (BldC) [M ass/Vol]on 04-11-2024 Glucose [Mass/Vol] 254 mg/dL High 65-99 [facility] Glucose [Mass/Vol] 282 mg/dL High 65-99 [facility] Glucose [Mass/Vol] 213 mg/dL High 65-99 [facility] Glucose [Mass/Vol] 236 mg/dL High 65-99 [facility] Glucose [Mass/Vol] 192 mg/dL High 65-99 [facility] Glucose [Mass/Vol] 187 mg/dL High 65-99 [facility] aPTT Coag (PPP) [Time]on aPTT Coag (Bld) [Time] 29 s Normal 26-37 [facility] Comment on above: Performed By: #### C ZACHARY, NAHOMY, 27039-8 #### [facility] ([id number]) [address], [address] [place] [address] CBC AND AUTO DIFFon 04-10- 24 ABSOLUTE BASOPHIL 0.0 X10E9/L Normal 0.0-0.2 [facility] Comment on above: Performed By: #### Thais SHARMA, CMP #### [facility] ([id number]) [address], [address] [place] [address] ABSOLUTE NEUTROPHIL 6.1 X10E9/L Normal 1.5-6.6 [facility] Comment on above: Performed By: #### Thais SHARMA, CMP #### [facility] ([id number]) [address], [address] [place] [address] Basophils/100 WBC (Bld) 0.3 % Normal [facility] Comment on above: Performed By: #### C BCA, CMP #### [facility] ([id number]) [address] [address] [place] [address] Eosinophils (Bld) [#/Vol] 0.0 10*3/uL Normal 0.0-0.4 [facility] Comment on above: Performed By: #### C BCA, CMP #### [facility] ([id number]) [address] [address] Eosinophils/100 WBC (Bld) 0.1 % Normal [facility] Comment on above: Performed By: #### C ZACHARY, CMP #### [facility] ([id number]) [address] [address] Erythrocyte distribution width (RBC) [Ratio] 14.3 % Normal 11.5-15.0 [facility] Comment on above: Performed By: #### C ZACHARY, CMP #### [facility] ([id number]) [address] [address] [place] [address] Hematocrit (Bld) [Volume fraction] 22.7 % Low 39-49 [facility] Comment on above: Performed By: #### C BCA, CMP #### [facility] ([id number]) [address] [address] [place] [address] Hemoglobin (Bld) [Mass/Vol] 7.9 g/dL Low 13.0-17.0 [facility] Comment on above: Performed By: #### C BCA, CMP #### [facility] ([id number]) [address] [address] Lymphocytes (Bld) [#/Vol] 1.1 10*3/uL Normal 1.0-3.5 [facility] Comment on above: Performed By: #### C BCA, CMP #### [facility] ([id number]) [address] [place] [address] Lymphocytes/100 WBC (Bld) 14.5 % Normal [facility] Comment on above: Performed By: #### C BCA, CMP #### [facility] ([id number]) [address], [address] [place] [address] MCH (RBC) [Entitic mass] 31.2 pg Normal 27-34 [facility] Comment on above: Performed By: #### C BCA, CMP #### [facility] ([id number]) [address], [address] [place] [address] MCHC (RBC) [Mass/Vol] 35.1 g/dL Normal 32-36 [facility] Comment on above: Performed By: #### C BCA, CMP #### [facility] ([id number]) [address], [address] [place] [address] MCV (RBC) [Entitic vol] 89 fL Normal 80-100 [facility] Comment on above: Performed By: #### C BCA, CMP #### [facility] ([id number]) [address], [address] [place] [address] Monocytes (Bld) [#/Vol] 0.3 10*3/uL Normal 0-0.9 [facility] Comment on above: Performed By: #### C BCA, CMP #### [facility] ([id number]) [address], [address] [place] [address] Monocytes/100 WBC (Bld) 4.3 % Normal [facility] Comment on above: Performed By: #### C BCA, CMP #### [facility] ([id number]) [address], [address] [place] [address] Neutrophils/100 WBC (Bld) 80.8 % Normal [facility] Comment on above: Performed By: #### C BCA, CMP #### [facility] ([id number]) [address], [address] [place] [address] Platelet mean volume (Bld) [Entitic vol] 7.2 fL Normal 7-12 [facility] Comment on above: Performed By: #### C BCA, CMP #### [facility] ([id number]) [address], [address] [place] [address] Platelets (Bld) [#/Vol] 285 10*3/uL Normal 150-450 [facility] Comment on above: Performed By: #### C BCA, CMP #### [facility] ([id number]) [address], [address] [place] [address] RBC COUNT 2.55 X10E12/L Low 4.10-5.70 [facility] Comment on above: Performed By: #### C BCA, CMP #### [facility] ([id number]) [address], [address] [place] [address] WBC (Bld) [#/Vol] 7.6 10*3/uL Normal 4.0-11.0 [facility] Comment on above: Performed By: #### C BCA, CMP #### [facility] ([id number]) [address], [address] [place] [address] ABSOLUTE BASOPHIL 0.0 X10E9/L Normal 0.0-0.2 [facility] Comment on above: Performed By: #### P INR, 24679-2, 87680-4, CBCA, 90716-3, CMP, 4548-4, 6873-4 #### [facility] ([id number]) [address] [place] [address], [place] [address] #### HA1C #### [facility] ([id number]) [address], [address] [place] [address] ABSOLUTE NEUTROPHIL 6.7 X10E9/L High 1.5-6.6 [facility] Comment on above: Performed By: #### P INR, 51306-1, 02468-1, CBCA, 77493-8, CMP, 4548-4, 6873-4 #### [facility] ([id number]) [address] [place] [address] #### HA1C #### [facility] ([id number]) [address], [address] [place] [address] Basophils/100 WBC (Bld) 0.3 % Normal [facility] Comment on above: Performed By: #### P INR, 99228-9, 32137-0, CBCA, 13073-1, CMP, 4548-4, 6873-4 #### [facility] ([id number]) [address] [place] [address] #### HA1C #### [facility] ([id number]) [address], [address] [place] [address] Eosinophils (Bld) [#/Vol] 0.0 10*3/uL Normal 0.0-0.4 [facility] Comment on above: Performed By: #### P INR, 88037-4, 20395-9, CBCA, 41255-5, CMP, 4548-4, 6873-4 #### [facility] ([id number]) [address] [place] [address] #### HA1C #### [facility] ([id number]) [address], [address] [place] [address] Eosinophils/100 WBC (Bld) 0.1 % Normal [facility] Comment on above: Performed By: #### P INR, 85601-2, 00541-1, CBCA, 69710-7, CMP, 4548-4, 6873-4 #### [facility] ([id number]) [address] [place] [address] #### HA1C #### [facility] ([id number]) [address], [address] [place] [address] Erythrocyte distribution width (RBC) [Ratio] 14.3 % Normal 11.5-15.0 [facility] Comment on above: Performed By: #### P INR, 46674-1, 99712-7, CBCA, 47755-9, CMP, 4548-4, 6873-4 #### [facility] ([id number]) [address] [place] [address] #### HA1C #### [facility] ([id number]) [address] [facility] [address] [place] [address] Hematocrit (Bld) [Volume fraction] 25.1 % Low 39-49 [facility] Comment on above: Performed By: #### P INR, 45457-2, 08874-2, CBCA, 43086-9, CMP, 4548-4, 6873-4 #### [facility] ([id number]) [address] [place] [address] #### HA1C #### [facility] ([id number]) [address] [facility], [address] [address] Hemoglobin (Bld) [Mass/Vol] 8.7 g/dL Low 13.0-17.0 [facility] Comment on above: Performed By: #### P INR, 26152-9, 37923-4, CBCA, 53718-3, CMP, 4548-4, 6873-4 #### [facility] ([id number]) [address] [place] [address] #### HA1C #### [facility] ([id number]) [address] [facility] [address] [place] [address] Lymphocytes (Bld) [#/Vol] 1.3 10*3/uL Normal 1.0-3.5 [facility] Comment on above: Performed By: #### P INR, 48504-2, 72512-4, CBCA, 53388-5, CMP, 4548-4, 6873-4 #### [facility] ([id number]) [address] [place] [address] #### HA1C #### [facility] ([id number]) [address] [facility], [address] [place] [address] Lymphocytes/100 WBC (Bld) 15.7 % Normal [facility] Comment on above: Performed By: #### P INR, 55196-3, 99161-2, CBCA, 78217-4, CMP, 4548-4, 6873-4 #### [facility] ([id number]) [address] [place] [address] #### HA1C #### [facility] ([id number]) [address] [facility], [address] [place] [address] MCH (RBC) [Entitic mass] 30.6 pg Normal 27-34 [facility] Comment on above: Performed By: #### P INR, 09999-1, 32685-9, CBCA, 97254-4, CMP, 4548-4, 6873-4 #### [facility] ([id number]) [address] [place] [address] #### HA1C #### [facility] ([id number]) [address] [facility], [address] [place] [address] MCHC (RBC) [Mass/Vol] 34.8 g/dL Normal 32-36 [facility] Comment on above: Performed By: #### P INR, 89379-5, 37108-1, CBCA, 75660-6, CMP, 4548-4, 6873-4 #### [facility] ([id number]) [address] [place] [address] #### HA1C #### [facility] ([id number]) [address], [address] [place] [address] MCV (RBC) [Entitic vol] 88 fL Normal 80-100 [facility] Comment on above: Performed By: #### P INR, 90396-8, 01868-6, CBCA, 94150-6, CMP, 4548-4, 6873-4 #### [facility] ([id number]) [address] [place] [address] #### HA1C #### [facility] ([id number]) [address] [facility], [address] [place] [address] Monocytes (Bld) [#/Vol] 0.4 10*3/uL Normal 0-0.9 [facility] Comment on above: Performed By: #### P INR, 19186-2, 60466-7, CBCA, 72980-6, CMP, 4548-4, 6873-4 #### [facility] ([id number]) [address] [place] [address] #### HA1C #### [facility] ([id number]) [address], [address] [place] [address] Monocytes/100 WBC (Bld) 5.0 % Normal [facility] Comment on above: Performed By: #### P INR, 97618-4, 81422-6, CBCA, 71872-2, CMP, 4548-4, 6873-4 #### [facility] ([id number]) [address] [place] [address] #### HA1C #### [facility] ([id number]) [address], [address] [place] [address] Neutrophils/100 WBC (Bld) 78.9 % Normal [facility] Comment on above: Performed By: #### P INR, 91884-3, 75906-9, CBCA, 42877-0, CMP, 4548-4, 6873-4 #### [facility] ([id number]) [address] [place] [address] #### HA1C #### [facility] ([id number]) [address], [address] [place] [address] Platelet mean volume (Bld) [Entitic vol] 7.4 fL Normal 7-12 [facility] Comment on above: Performed By: #### P INR, 13332-4, 58587-1, CBCA, 58821-8, CMP, 4548-4, 6873-4 #### [facility] ([id number]) [address] [place] [address] #### HA1C #### [facility] ([id number]) [address], [address] [place] [address] Platelets (Bld) [#/Vol] 285 10*3/uL Normal 150-450 [facility] Comment on above: Performed By: #### P INR, 44481-2, 95474-7, CBCA, 05391-7, CMP, 4548-4, 6873-4 #### [facility] ([id number]) [address] [place] [address] #### HA1C #### [facility] ([id number]) [address], [address] [place] [address] RBC COUNT 2.86 X10E12/L Low 4.10-5.70 [facility] Comment on above: Performed By: #### P INR, 70174-1, 78946-6, CBCA, 64140-4, CMP, 4548-4, 6873-4 #### [facility] ([id number]) [address] [place] [address] #### HA1C #### [facility] ([id number]) [address] [place] [address] WBC (Bld) [#/Vol] 8.5 10*3/uL Normal 4.0-11.0 [facility] Comment on above: Performed By: #### P INR, 05978-0, 23914-9, CBCA, 98396-5, CMP, 4548-4, 6873-4 #### [facility] ([id number]) [address] [place] [address], [place] [address] #### HA1C #### [facility] ([id number]) [address] [facility] [place] [address] CBC auto differentialon 03-27 Basophils (Bld) [#/Vol] 0.0 10*3/uL [facility] Basophils/100 WBC (Bld) 0.3 % [facility] Eosinophils (Bld) [#/Vol] 0.0 10*3/uL [facility] Eosinophils/100 WBC (Bld) 0.1 % [facility] Erythrocyte distribution width (RBC) [Ratio] 14.3 % 11.5 - 15.0 % [facility] Hematocrit (Bld) [Volume fraction] 25.1 % Low 39 - 49 % [facility] Hemoglobin (Bld) [Mass/Vol] 8.7 g/dL Low 13.0 - 17.0 g/dL [facility] Interpretation and review of laboratory results Abnormal [facility] Lymphocytes (Bld) [#/Vol] 1.3 10*3/uL [facility] Lymphocytes/100 WBC (Bld) 15.7 % [facility] MCH (RBC) [Entitic mass] 30.6 pg 27 - 34 pg [facility] MCHC (RBC) [Mass/Vol] 34.8 g/dL 32 - 3 6 g/dL [facility] MCV (RBC) [Entitic vol] 88 fL 80 - 100 fL [facility] Monocytes (Bld) [#/Vol] 0.4 10*3/uL [facility] Monocytes/100 WBC (Bld) 5.0 % [facility] Neutrophils (Bld) [#/Vol] 6.7 10*3/uL High [facility] Neutrophils/100 WBC (Bld) 78.9 % [facility] Platelet mean volume (Bld) [Entitic vol] 7.4 fL 7 - 12 fL [facility] Platelets (Bld) [#/Vol] 285 10*3/uL [facility] RBC (Bld) [#/Vol] 2.86 10*6/uL Low [facility] WBC corrected for nucl RBC Auto (Bld) [#/Vol] 8.5 [facility] COMPREHENSIVE METABOLIC PANE [place] 04-10-2024 Albumin [Mass/Vol] 3.9 g/dL Normal 3.2-5.3 [facility] Comment on above: Performed By: #### C BCA, CMP #### [facility] ([id number]) [address], [address] [place] [address] ALP [Catalytic activity/Vol] 54 U/L Normal 39-130 [facility] Comment on above: Performed By: #### C BCA, CMP #### [facility] ([id number]) [address], [address] [place] [address] ALT [Catalytic activity/Vol] 8 U/L Normal 0-40 [facility] Comment on above: Performed By: #### C BCA, CMP #### [facility] ([id number]) [address], [address] [place] [address] Anion gap [Moles/Vol] 9 mmol/L Normal 5-15 [facility] Comment on above: Performed By: #### C BCA, CMP #### [facility] ([id number]) [address], [address] [place] [address] AST [Catalytic activity/Vol] 10 U/L Normal 0-41 [facility] Comment on above: Performed By: #### C BCA, CMP #### [facility] ([id number]) [address], [address] [place] [address] Bilirubin [Mass/Vol] 0.6 mg/dL Normal 0.3-1.2 [facility] Comment on above: Performed By: #### C BCA, CMP #### [facility] ([id number]) [address], [address] [place] [address] Calcium [Mass/Vol] 8.8 mg/dL Normal 8.5-10.5 [facility] Comment on above: Performed By: #### C BCA, CMP #### [facility] ([id number]) [address] [facility] [address] [place] [address] Chloride [Moles/Vol] 109 mmol/L Normal 98-109 [facility] Comment on above: Performed By: #### C BCA, CMP #### [facility] ([id number]) [address] [address] [place] [address] CO2 [Moles/Vol] 23 mmol/L Normal 22-32 [facility] Comment on above: Performed By: #### C BCA, CMP #### [facility] ([id number]) [address] [address] [place] [address] Creatinine [Mass/Vol] 0.83 mg/dL Normal 0.60-1.30 [facility] Comment on above: Result Comment: METH OD TRACEABLE TO IDMS STANDARD Performed By: #### C BCA, CMP #### [facility] ([id number]) [address] [place] [address] eGFR (CKD-EPI) NON-RACE DEPENDENT >90 Normal >59 [facility] Comment on above: Result Comment: Reported eGFR is based on the CKD-EPI 2020 equation that does not use a race coefficient. Performed By: #### C BCA, CMP #### [facility] ([id number]) [address] [place] [address] Glucose [Mass/Vol] 193 mg/dL High 65-99 [facility] Comment on above: Performed By: #### C BCA, CMP #### [facility] ([id number]) [address] [place] [address] Potassium [Moles/Vol] 4.1 mmol/L Normal 3.5-5.0 [facility] Comment on above: Performed By: #### C BCA, CMP #### [facility] ([id number]) [address] [place] [address] Protein [Mass/Vol] 5.7 g/dL Low 6.0-8.0 [facility] Comment on above: Performed By: #### C BCA, CMP #### [facility] ([id number]) [address] [place] [address] Sodium [Moles/Vol] 141 mmol/L Normal 134-146 [facility] Comment on above: Performed By: #### C BCA, CMP #### [facility] ([id number]) [address] [place] [address] Urea nitrogen [Mass/Vol] 54 mg/dL High 5-27 [facility] Comment on above: Performed By: #### C BCA, CMP #### [facility] ([id number]) [address] [place] [address] Albumin [Mass/Vol] 3.8 g/dL Normal 3.2-5.3 [facility] Comment on above: Performed By: #### P INR, 75921-6, 91519-8, CBCA, 61222-8, CMP, 4548-4, 6873-4 #### [facility] ([id number]) [address] [place] [address], [place] [address] #### HA1C #### [facility] ([id number]) [address] [place] [address] ALP [Catalytic activity/Vol] 55 U/L Normal 39-130 [facility] Comment on above: Performed By: #### P INR, 85166-6, 83548-8, CBCA, 18783-0, CMP, 4548-4, 6873-4 #### [facility] ([id number]) [address] [place] [address] #### HA1C #### [facility] ([id number]) [address], [address] [place] [address] ALT [Catalytic activity/Vol] 13 U/L Normal 0-40 [facility] Comment on above: Performed By: #### P INR, 89900-9, 95977-1, CBCA, 60038-4, CMP, 4548-4, 6873-4 #### [facility] ([id number]) [address] [place] [address] 46468 #### HA1C #### [facility] ([id number]) [address] [facility], [address] [place] [address] Anion gap [Moles/Vol] 11 mmol/L Normal 5-15 [facility] Comment on above: Performed By: #### P INR, 28318-7, 75734-9, CBCA, 86319-5, CMP, 4548-4, 6873-4 #### [facility] ([id number]) [address] [place] [address] 40952 #### HA1C #### [facility] ([id number]) [address], [address] [place] [address] AST [Catalytic activity/Vol] 14 U/L Normal 0-41 [facility] Comment on above: Performed By: #### P INR, 51656-1, 46751-2, CBCA, 14549-8, CMP, 4548-4, 6873-4 #### [facility] ([id number]) [address] [place] [address] 90194 #### HA1C #### [facility] ([id number]) [address], [address] [place] [address] Bilirubin [Mass/Vol] 0.4 mg/dL Normal 0.3-1.2 [facility] Comment on above: Performed By: #### P INR, 51218-8, 39080-3, CBCA, 96681-1, CMP, 4548-4, 6873-4 #### [facility] ([id number]) [address] [place] [address] 64012 #### HA1C #### [facility] ([id number]) [address], [address] [place] [address] Calcium [Mass/Vol] 8.6 mg/dL Normal 8.5-10.5 [facility] Comment on above: Performed By: #### P INR, 60766-2, 88959-2, CBCA, 45658-2, CMP, 4548-4, 6873-4 #### [facility] ([id number]) [address] [place] [address] 86761 #### HA1C #### [facility] ([id number]) [address], [address] [place] [address] Chloride [Moles/Vol] 106 mmol/L Normal 98-109 [facility] Comment on above: Performed By: #### P INR, 10366-4, 53668-5, CBCA, 76244-8, CMP, 4548-4, 6873-4 #### [facility] ([id number]) [address] [place] [address] 98646 #### HA1C #### [facility] ([id number]) [address], [address] [place] [address] CO2 [Moles/Vol] 20 mmol/L Low 22-32 [facility] Comment on above: Performed By: #### P INR, 82107-6, 82178-1, CBCA, 98893-4, CMP, 4548-4, 6873-4 #### [facility] ([id number]) [address] [place] [address] 38513 #### HA1C #### [facility] ([id number]) [address] [facility] [facility] [address], [address] [place] [address] Creatinine [Mass/Vol] 1.02 mg/dL Normal 0.70-1.20 [facility] Comment on above: Result Comment: METH OD TRACEABLE TO IDMS STANDARD Performed By: #### P INR, 41160-6, 85540-0, CBCA, 45337-8, CMP, 4548-4, 6873-4 #### [facility] ([id number]) [address] [place] [address] 99615 #### HA1C #### [facility] ([id number]) [address] [facility], [address] [address] GFR/1.73 sq M.predicted among non-blacks MDRD (S/P/Bld) [Vol rate/Area] 79 mL/min/{1.73_m2} Normal >59 [facility] Comment on above: Result Comment: Reported eGFR is based on the CKD-EPI 2020 equation that does not use a race coefficient. Performed By: #### P INR, 92306-8, 44757-6, CBCA, 89136-2, CMP, 4548-4, 6873-4 #### [facility] ([id number]) [address] [place] [address] 10764 #### HA1C #### [facility] ([id number]) [address] [facility], [address] [place] [address] Glucose [Mass/Vol] 195 mg/dL High 65-99 [facility] Comment on above: Performed By: #### P INR, 80694-4, 73937-5, CBCA, 42751-7, CMP, 4548-4, 6873-4 #### [facility] ([id number]) [address] [place] [address] 87823 #### HA1C #### [facility] ([id number]) [address], [address] [place] [address] Potassium [Moles/Vol] 4.1 mmol/L Normal 3.5-5.0 [facility] Comment on above: Performed By: #### P INR, 67840-1, 71889-9, CBCA, 80663-5, CMP, 4548-4, 6873-4 #### [facility] ([id number]) [address] [place] [address] 71303 #### HA1C #### [facility] ([id number]) [address] [facility], [address] [place] [address] Protein [Mass/Vol] 6.1 g/dL Normal 6.0-8.0 [facility] Comment on above: Performed By: #### P INR, 42512-7, 17618-1, CBCA, 95795-7, CMP, 4548-4, 6873-4 #### [facility] ([id number]) [address] [place] [address] 41485 #### HA1C #### [facility] ([id number]) [address] [facility], [address] [place] [address] Sodium [Moles/Vol] 137 mmol/L Normal 134-146 [facility] Comment on above: Performed By: #### P INR, 25781-5, 14560-9, CBCA, 59887-5, CMP, 4548-4, 6873-4 #### [facility] ([id number]) [address] [place] [address] 15858 #### HA1C #### [facility] ([id number]) [address] [place] [address] Urea nitrogen [Mass/Vol] 86 mg/dL High 5-27 [facility] Comment on above: Performed By: #### P INR, 61343-9, 63286-8, CBCA, 37674-4, CMP, 4548-4, 6873-4 #### [facility] ([id number]) [address] [place] [address], [place] [address] #### HA1C #### [facility] ([id number]) [address], [address] [place] [address] CT BRAIN WO CONTon CT BRAIN WO [...] as low as reasonably achievable. Finalized by Rodnye Jaramillo MD on 04/10/2024 2:20 PM Normal [facility] CT CTA CAROTIDon 04-10-2024 CT CTA [...] supervision. Automated exposure control utilized. The [place] Symptomatic Carotid Endarterectomy Trial (NASCET) method for [...] Beatty MD on 04/10/2024 3:14 PM Normal [facility] CT CTA HEADon 04-10-2024 CT CTA [...] Beatty MD on 04/10/2024 2:51 PM Normal [facility] CT Head WO contraston 2023 CLINICAL INFORMATION : Neuro deficit, acute, stroke suspected; right mca [...] Rodney Jaramillo MD on 04/10/2024 2:20 PM [facility] Rodney Jaramillo M D - 04/10/2024 CLINICAL INFORMATION: Neuro deficit, acute, stroke suspected; [...] Rodney Jaramillo MD on 04/10/2024 2:20 PM [facility] Radiology Study observation (narrative) [facility] CT Head WO contrastOrdered B y: Rodney Jaramillo on 04-10-2024 [facility] Work Phone: CTA Carotid artery W contras t [place] 04-10-2024 STUDY: CT angiogram carotid artery with contrast CLINICAL HISTORY: CVA, TIA, Stroke acute neurologic deficit. Stroke. CVA. TIA. COMPARISON: 04/09/2024 TECHNIQUE: CT angiogram performed following intravenous administration of 100 mL Omnipaque 350 nonionic intravenous contrast. Coronal and sagittal and 3-D volume rendered maximum intensity projection images generated and reviewed under concurrent physician supervision. Automated exposure control utilized. The [place] Symptomatic Carotid Endarterectomy Trial (NASCET) method for [...] Ricardo Beatty MD on 04/10/2024 3:[address] [facility] Ricardo Beatty MD - 04/10/2024 STUDY: CT angiogram carotid artery with contrast CLINICAL HISTORY: CVA, TIA, Stroke acute neurologic deficit. Stroke. CVA. TIA. COMPARISON: 04/09/2024 TECHNIQUE: CT angiogram performed following intravenous administration of 100 mL Omnipaque 350 nonionic intravenous contrast. Coronal and sagittal and 3-D volume rendered maximum intensity projection images generated and reviewed under concurrent physician supervision. Automated exposure control utilized. The [place] Symptomatic Carotid Endarterectomy Trial (NASCET) method for [...] Ricardo Beatty MD on 04/10/2024 3:14 PM [facility] Rad[facility] (narrative) [facility] Head Arteries W contrast [place] 04-10-2024 CT angiogram head wi th contrast History: Stroke, CVA, TIA, acute neurologic [...] Ricardo Beatty MD on 04/10/2024 2:51 PM [facility] Ricardo Beatty MD - 04/10/2024 CT angiogram head with contrast History: Stroke, [...] Ricardo Beatty MD on 04/10/2024 2:51 PM [facility] Radiology Study observation (narrative) [facility] CTA Head Arteries W contrast IVOrdered By: Ricardo Beatty on 04-10-2024 [facility] Work Phone: Comprehensive metabolic pane delonte 04-10-2024 Albumin [Mass/Vol] 3.8 g/dL 3.2 - 5.3 g/dL [facility] ALP [Catalytic activity/Vol] 55 U/L 39 - 130 U/L [facility] ALT No additional P-5'-P [Catalytic activity/Vol] 13 U/L 0 - 40 U/L [facility] Anion gap [Moles/Vol] 11 mmol/L 5 - 15 mmol/L [facility] AST [Catalytic activity/Vol] 14 U/L 0 - 41 U/L [facility] Bilirubin [Mass/Vol] 0.4 mg/dL 0.3 - 1 .2 mg/dL [facility] Calcium [Mass/Vol] 8.6 mg/dL 8.5 - 10. 5 mg/dL [facility] Chloride [Moles/Vol] 106 mmol/L 98 - 10 9 mmol/L [facility] CO2 [Moles/Vol] 20 mmol/L Low 22 - 32 mmol/L [facility] Creatinine [Mass/Vol] 1.02 mg/dL 0.70 - 1.20 mg/dL [facility] Comment on above: METHOD TRACEABLE TO IDAK STANDARD eGFR (CKD-EPI)non-race dependent 79 - PINF [facility] Comment on above: Reported eGFR is based on the CKD-EPI 2020 equation that does not use a race coefficient. Glucose [Mass/Vol] 195 mg/dL High 65 - 99 mg/dL [facility] Interpretation and review of laboratory results Abnormal [facility] Potassium [Moles/Vol] 4.1 mmol/L 3.5 - 5.0 mmol/L [facility] Protein [Mass/Vol] 6.1 g/dL 6.0 - 8.0 g/dL [facility] Sodium [Moles/Vol] 137 mmol/L 134 - 146 mmol/L [facility] Urea nitrogen [Mass/Vol] 86 mg/dL High 5 - 27 mg/dL [facility] Glucose Glucometer (BldC) [M ass/Vol]on 04-10-2024 Glucose [Mass/Vol] 188 mg/dL High 65-99 [facility] Glucose [Mass/Vol] 233 mg/dL High 65-99 [facility] Glucose [Mass/Vol] 232 mg/dL High 65 - 99 mg/dL [facility] Interpretation and review of laboratory results Abnormal [facility] Glucose [Mass/Vol] 232 mg/dL High 65-99 [facility] Glucose [Mass/Vol] 232 mg/dL High 65 - 99 mg/dL [facility] Interpretation and review of laboratory results Abnormal [facility] Glucose [Mass/Vol] 232 mg/dL High 65-99 [facility] Glucose [Mass/Vol] 205 mg/dL High 65 - 99 mg/dL [facility] Interpretation and review of laboratory results Abnormal [facility] Glucose [Mass/Vol] 205 mg/dL High 65-99 [facility] MAGNESIUMon 04-10-2024 Magnesium [Mass/Vol] 2.3 mg/dL Normal 1.8-2.6 [facility] Comment on above: Performed By: #### P INR, 16732-4, 68413-8, CBCA, 08176-6, CMP, 9728-4, 1073-4 #### [facility] ([id number]) [address] [place] [address] 39716 #### HA1C #### [facility] ([id number]) [address], [address] [place] [address] Magnesiumon 04-10-2024 Magnesium [Mass/Vol] 2.3 mg/dL 1.8 - 2 .6 mg/dL [facility] No Panel Informationon 04-10 [facility] PHOSPHORUSon 04-10-2024 Phosphate [Mass/Vol] 4.2 mg/dL Normal 2.4-4.9 [facility] Comment on above: Performed By: #### P INR, 93049-3, 39278-5, CBCA, 27403-5, CMP, 4548-4, 6873-4 #### [facility] ([id number]) [address] [place] [address] 15140 #### HA1C #### [facility] ([id number]) [address], [address] [place] [address] Phosphate [Mass/Vol]on 04-10 [facility] Phosphoruson 04-10-2024 Phosphate [Mass/Vol] 4.2 mg/dL 2.4 - 4 .9 mg/dL [facility] Repeat ECG 12 leadon 024 TRACEMASTERVUE [facility] URINALYSISon 04-10-2024 Bilirubin Ql (U) Negative Normal NEG [facility] Comment on above: Performed By: #### U A #### [facility] ([id number]) [address], [address] [place] [address] BLOOD/HGB Negative Normal NEG [facility] Comment on above: Performed By: #### U A #### [facility] ([id number]) [address], [address] [place] [address] Color (U) YELLOW Normal YELLOW [facility] Comment on above: Performed By: #### U A #### [facility] ([id number]) [address], [address] [place] [address] Glucose Ql (U) Negative Normal NEG [facility] Comment on above: Performed By: #### U A #### [facility] ([id number]) [address], [address] [place] [address] Ketones Ql (U) Negative Normal NEG [facility] Comment on above: Performed By: #### U A #### [facility] ([id number]) [address], [address] [place] [address] Leukocyte esterase Test strip Ql (U) Negative Normal NEG [facility] Comment on above: Performed By: #### U A #### [facility] ([id number]) [address], [address] [place] [address] Nitrite Ql (U) Negative Normal NEG [facility] Comment on above: Performed By: #### U A #### [facility] ([id number]) [address], [address] [place] [address] pH (U) 5.5 [pH] Normal 5.0-8.5 [facility] Comment on above: Performed By: #### U A #### [facility] ([id number]) [address], [address] [place] [address] Protein Ql (U) Negative Normal NEG [facility] Comment on above: Performed By: #### U A #### [facility] ([id number]) [address], [address] [place] [address] Specific gravity (U) [Rel density] 1.039 High 1.003-1.03 5 [facility] Comment on above: Performed By: #### U A #### [facility] ([id number]) [address], [address] [place] [address] TURBIDITY CLEAR Normal CLEAR [facility] Comment on above: Performed By: #### U A #### [facility] ([id number]) [address], [facility] [address] [place] [address] Urinalysis dipstick W Reflex Microscopic panel (U) URINE RECEIVED WITHOUT PRESERVATIVE-DELAYS IN TRANSPORT MAY AFFECT RESULTS.INTERPRET WITH CAUTION AND CLINICAL CORRELATION IS RECOMMENDED. Normal [facility] Comment on above: Performed By: #### U A #### [facility] ([id number]) [address] [address] Urobilinogen (U) [Mass/Vol] mg/dL Normal <1.1 [facility] Comment on above: Performed By: #### U A #### [facility] ([id number]) [address] [address] APTTon 04-09-2024 aPTT Coag (PPP) [Time] 24 s Low Pr [facility] Comment on above: NEW REFERENCE RANGE BASIC METABOLIC PANLon 04-09 Anion gap [Moles/Vol] 12 mmol/L Normal 5-15 [facility] Comment on above: Performed By: #### P INR, 94246-6, 63746-0, CBCA, 47680-6, CMP, 4548-4, 6873-4 #### [facility] ([id number]) [address] [place] [address], [place] [address] #### HA1C #### [facility] ([id number]) [address] [address] Calcium [Mass/Vol] 8.4 mg/dL Low 8.5-10.5 [facility] Comment on above: Performed By: #### P INR, 12790-7, 48409-0, CBCA, 92442-8, CMP, 4548-4, 6873-4 #### [facility] ([id number]) [address] [place] [address]285 #### HA1C #### [facility] ([id number]) [address], [address] [place] [address] Chloride [Moles/Vol] 102 mmol/L Normal 98-109 [facility] Comment on above: Performed By: #### P INR, 68703-0, 66499-8, CBCA, 45536-7, CMP, 4548-4, 6873-4 #### [facility] ([id number]) [address] [place] [address] 09954 #### HA1C #### [facility] ([id number]) [address] [facility], [address] [place] [address] CO2 [Moles/Vol] 17 mmol/L Low 22-32 [facility] Comment on above: Performed By: #### P INR, 80001-0, 01299-4, CBCA, 08537-7, CMP, 4548-4, 6873-4 #### [facility] ([id number]) [address] [place] [address]4976 #### HA1C #### [facility] ([id number]) [address] [facility], [address] [place] [address] Creatinine [Mass/Vol] 1.49 mg/dL High 0.70-1.20 [facility] Comment on above: Result Comment: METH OD TRACEABLE TO IDMS STANDARD Performed By: #### P INR, 64553-7, 25145-1, CBCA, 45184-2, CMP, 4548-4, 6873-4 #### [facility] ([id number]) [address] [place] [address] #### HA1C #### [facility] ([id number]) [address] [facility], [address] [place] [address] GFR/1.73 sq M.predicted among non-blacks MDRD (S/P/Bld) [Vol rate/Area] 50 mL/min/{1.73_m2} Low >59 [facility] Comment on above: Result Comment: Reported eGFR is based on the CKD-EPI 2020 equation that does not use a race coefficient. Performed By: #### P INR, 96115-1, 79946-4, CBCA, 85153-1, CMP, 4548-4, 6873-4 #### [facility] ([id number]) [address] [place] [address] 13598 #### HA1C #### [facility] ([id number]) [address], [address] [place] [address] Glucose [Mass/Vol] 328 mg/dL High 65-99 [facility] Comment on above: Performed By: #### P INR, 99403-5, 08551-0, CBCA, 99537-7, CMP, 4548-4, 6873-4 #### [facility] ([id number]) [address] [place] [address] #### HA1C #### [facility] ([id number]) [address] [facility], [address] [place] [address] Potassium [Moles/Vol] 4.7 mmol/L Normal 3.5-5.0 [facility] Comment on above: Performed By: #### P INR, 16319-8, 75483-0, CBCA, 46000-0, CMP, 4548-4, 6873-4 #### [facility] ([id number]) [address] [place] [address]84 #### HA1C #### [facility] ([id number]) [address], [address] [place] [address] Sodium [Moles/Vol] 131 mmol/L Low 134-146 [facility] Comment on above: Performed By: #### P INR, 23930-8, 65985-1, CBCA, 83648-0, CMP, 4548-4, 6873-4 #### [facility] ([id number]) [address] [place] [address] #### HA1C #### [facility] ([id number]) [address] [facility], [address] [place] [address] Urea nitrogen [Mass/Vol] 112 mg/dL High 5-27 [facility] Comment on above: Performed By: #### P INR, 30845-0, 89270-4, CBCA, 31978-2, CMP, 4548-4, 6873-4 #### [facility] ([id number]) [address] [place] [address] #### HA1C #### [facility] ([id number]) [address] [facility], [address] [place] [address] Basic Metabolic Panelon 06- Anion gap [Moles/Vol] 12 mmol/L 5 - 15 mmol/L [facility] Calcium [Mass/Vol] 8.4 mg/dL Low 8.5 - 10. 5 mg/dL [facility] Chloride [Moles/Vol] 102 mmol/L 98 - 10 9 mmol/L [facility] CO2 [Moles/Vol] 17 mmol/L Low 22 - 32 mmol/L [facility] Creatinine [Mass/Vol] 1.49 mg/dL High 0.70 - 1.20 mg/dL [facility] Comment on above: METHOD TRACEABLE TO IDMS STANDARD eGFR (CKD-EPI)non-race dependent 50 Low - PINF [facility] Comment on above: Reported eGFR is based on the CKD-EPI 2020 equation that does not use a race coefficient. Glucose [Mass/Vol] 328 mg/dL High 65 - 99 mg/dL [facility] Interpretation and review of laboratory results Abnormal [facility] Potassium [Moles/Vol] 4.7 mmol/L 3.5 - 5.0 mmol/L [facility] Sodium [Moles/Vol] 131 mmol/L Low 134 - 146 mmol/L [facility] Urea nitrogen [Mass/Vol] 112 mg/dL High 5 - 27 mg/dL [facility] CBC AND AUTO DIFFon 04-09-20 24 ABSOLUTE BASOPHIL 0.0 X10E9/L Normal 0.0-0.2 [facility] Comment on above: Performed By: #### P INR, 32516-4, 73129-8, CBCA, 30902-9, CMP, 4548-4, 6873-4 #### [facility] ([id number]) [address] [place] [address] #### HA1C #### [facility] ([id number]) [address] [facility], [address] [place] [address] ABSOLUTE NEUTROPHIL 8.5 X10E9/L High 1.5-6.6 [facility] Comment on above: Performed By: #### P INR, 04674-0, 71821-5, CBCA, 30094-9, CMP, 4548-4, 6873-4 #### [facility] ([id number]) [address] [place] [address] #### HA1C #### [facility] ([id number]) [address] [facility], [address] [place] [address] Basophils/100 WBC (Bld) 0.4 % Normal [facility] Comment on above: Performed By: #### P INR, 86238-5, 45819-4, CBCA, 77167-7, CMP, 4548-4, 6873-4 #### [facility] ([id number]) [address] [place] [address] #### HA1C #### [facility] ([id number]) [address] [facility], [address] [place] [address] Eosinophils (Bld) [#/Vol] 0.0 10*3/uL Normal 0.0-0.4 [facility] Comment on above: Performed By: #### P INR, 41105-1, 80224-2, CBCA, 47781-6, CMP, 4548-4, 6873-4 #### [facility] ([id number]) [address] [place] [address] #### HA1C #### [facility] ([id number]) [address], [address] [place] [address] Eosinophils/100 WBC (Bld) 0.1 % Normal [facility] Comment on above: Performed By: #### P INR, 79570-8, 90686-9, CBCA, 53792-0, CMP, 4548-4, 6873-4 #### [facility] ([id number]) [address] [place] [address] #### HA1C #### [facility] ([id number]) [address] [facility], [address] [place] [address] Erythrocyte distribution width (RBC) [Ratio] 13.9 % Normal 11.5-15.0 [facility] Comment on above: Performed By: #### P INR, 11892-8, 73118-9, CBCA, 34255-3, CMP, 4548-4, 6873-4 #### [facility] ([id number]) [address] [place] [address] #### HA1C #### [facility] ([id number]) [address], [address] [place] [address] Hematocrit (Bld) [Volume fraction] 28.3 % Low 39-49 [facility] Comment on above: Performed By: #### P INR, 02107-5, 28131-6, CBCA, 90214-9, CMP, 4548-4, 6873-4 #### [facility] ([id number]) [address] [place] [address] #### HA1C #### [facility] ([id number]) [address], [address] [place] [address] Hemoglobin (Bld) [Mass/Vol] 9.8 g/dL Low 13.0-17.0 [facility] Comment on above: Performed By: #### P INR, 31092-7, 02766-5, CBCA, 42023-4, CMP, 4548-4, 6873-4 #### [facility] ([id number]) [address] [place] [address] #### HA1C #### [facility] ([id number]) [address], [address] [place] [address] Lymphocytes (Bld) [#/Vol] 0.9 10*3/uL Low 1.0-3.5 [facility] Comment on above: Performed By: #### P INR, 57052-9, 40018-9, CBCA, 52451-7, CMP, 4548-4, 6873-4 #### [facility] ([id number]) [address] [place] [address] 945[address] #### HA1C #### [facility] ([id number]) [address], [address] [place] [address] Lymphocytes/100 WBC (Bld) 9.0 % Normal [facility] Comment on above: Performed By: #### P INR, 13451-4, 08534-1, CBCA, 87007-2, CMP, 4548-4, 6873-4 #### [facility] ([id number]) [address] [place] [address] 79473 #### HA1C #### [facility] ([id number]) [address], [address] [place] [address] MCH (RBC) [Entitic mass] 30.9 pg Normal 27-34 [facility] Comment on above: Performed By: #### P INR, 47627-6, 41379-8, CBCA, 30333-3, CMP, 4548-4, 6873-4 #### [facility] ([id number]) [address] [place] [address] 67352 #### HA1C #### [facility] ([id number]) [address], [address] [place] [address] MCHC (RBC) [Mass/Vol] 34.6 g/dL Normal 32-36 [facility] Comment on above: Performed By: #### P INR, 48500-4, 72713-9, CBCA, 74909-8, CMP, 4548-4, 6873-4 #### [facility] ([id number]) [address] [place] [address] 88427 #### HA1C #### [facility] ([id number]) [address] [facility], [address] [place] [address] MCV (RBC) [Entitic vol] 89 fL Normal 80-100 [facility] Comment on above: Performed By: #### P INR, 49580-4, 57767-6, CBCA, 30642-5, CMP, 4548-4, 6873-4 #### [facility] ([id number]) [address] [place] [address] 82179 #### HA1C #### [facility] ([id number]) [address] [facility] [facility], [address] [place] [address] Monocytes (Bld) [#/Vol] 0.3 10*3/uL Normal 0-0.9 [facility] Comment on above: Performed By: #### P INR, 99535-0, 83485-9, CBCA, 42369-1, CMP, 4548-4, 6873-4 #### [facility] ([id number]) [address] [place] [address] 42580 #### HA1C #### [facility] ([id number]) [address] [facility] [facility], [address] [place] [address] Monocytes/100 WBC (Bld) 3.2 % Normal [facility] Comment on above: Performed By: #### P INR, 43359-1, 11586-5, CBCA, 58335-4, CMP, 4548-4, 6873-4 #### [facility] ([id number]) [address] [place] [address] 69126 #### HA1C #### [facility] ([id number]) [address] [facility] [facility] [address] [place] [address] Neutrophils/100 WBC (Bld) 87.3 % Normal [facility] Comment on above: Performed By: #### P INR, 71627-8, 04527-5, CBCA, 00184-7, CMP, 4548-4, 6873-4 #### [facility] ([id number]) [address] [place] [address] 32292 #### HA1C #### [facility] ([id number]) [address] [facility], [address] [place] [address] Platelet mean volume (Bld) [Entitic vol] 8.1 fL Normal 7-12 [facility] Comment on above: Performed By: #### P INR, 95010-9, 15717-8, CBCA, 84189-4, CMP, 4548-4, 6873-4 #### [facility] ([id number]) [address] [place] [address]20 #### HA1C #### [facility] ([id number]) [address] [facility], [address] [place] [address] Platelets (Bld) [#/Vol] 330 10*3/uL Normal 150-450 [facility] Comment on above: Performed By: #### P INR, 60940-4, 52647-9, CBCA, 40577-1, CMP, 4548-4, 6873-4 #### [facility] ([id number]) [address] [place] [address] #### HA1C #### [facility] ([id number]) [address] [facility], [address] [place] [address] RBC COUNT 3.16 X10E12/L Low 4.10-5.70 [facility] Comment on above: Performed By: #### P INR, 17722-8, 32446-4, CBCA, 00437-7, CMP, 4548-4, 6873-4 #### [facility] ([id number]) [address] [place] [address]30 #### HA1C #### [facility] ([id number]) [address] [place] [address], [address] [place] [address] WBC (Bld) [#/Vol] 9.7 10*3/uL Normal 4.0-11.0 [facility] Comment on above: Performed By: #### P INR, 30615-5, 27113-7, CBCA, 83844-8, CMP, 4548-4, 6873-4 #### [facility] ([id number]) [address] [place] [address] 41151 #### HA1C #### [facility] ([id number]) [address] [place] [address], [address] [place] [address] CBC auto differentialon - Basophils (Bld) [#/Vol] 0.0 10*3/uL [facility] Basophils/100 WBC (Bld) 0.4 % [facility] Eosinophils (Bld) [#/Vol] 0.0 10*3/uL [facility] Eosinophils/100 WBC (Bld) 0.1 % [facility] Erythrocyte distribution width (RBC) [Ratio] 13.9 % 11.5 - 15.0 % [facility] Hematocrit (Bld) [Volume fraction] 28.3 % Low 39 - 49 % [facility] Hemoglobin (Bld) [Mass/Vol] 9.8 g/dL Low 13.0 - 17.0 g/dL [facility] Interpretation and review of laboratory results Abnormal [facility] Lymphocytes (Bld) [#/Vol] 0.9 10*3/uL Low [facility] Lymphocytes/100 WBC (Bld) 9.0 % [facility] MCH (RBC) [Entitic mass] 30.9 pg 27 - 34 pg [facility] MCHC (RBC) [Mass/Vol] 34.6 g/dL 32 - 3 6 g/dL [facility] MCV (RBC) [Entitic vol] 89 fL 80 - 100 fL [facility] Monocytes (Bld) [#/Vol] 0.3 10*3/uL [facility] Monocytes/100 WBC (Bld) 3.2 % [facility] Neutrophils (Bld) [#/Vol] 8.5 10*3/uL High [facility] Neutrophils/100 WBC (Bld) 87.3 % [facility] Platelet mean volume (Bld) [Entitic vol] 8.1 fL 7 - 12 fL [facility] Platelets (Bld) [#/Vol] 330 10*3/uL [facility] RBC (Bld) [#/Vol] 3.16 10*6/uL Low [facility] WBC corrected for nucl RBC Auto (Bld) [#/Vol] 9.[address] [facility] [address] BRAIN WO CONT STROKE ALER Ton [...] Clay MD on 04/09/2024 8:10 AM Normal [facility] CT CTA CAROTIDon 04-09-2024 CT CTA [...] artery narrowing is assessed using the [place] Symptomatic Carotid Endarterectomy Trial (NASCET) method. Comparison: [...] Rothman MD on 04/09/2024 8:34 AM Normal [facility] CT CTA HEADon 04-09-2024 CT CTA [...] Thomson MD on 04/09/2024 8:39 AM Normal [facility] CT Headon 04-09-2024 CT HEAD WITHOUT IV CONTRAST CLINICAL STATEMENT: [...] Ramy Clay MD on 04/09/2024 8:10 AM [facility] Ramy Clay M D - 04/09/2024 CT HEAD WITHOUT IV CONTRAST CLINICAL STATEMENT: [...] Ramy Clay MD on 04/09/2024 8:10 AM [facility] Radiology Study observation (narrative) [facility] CT HeadOrdered By: Ramy roach on 04-09-2024 [facility] Work Phone: CTA Carotid artery W contras t [place] 04-09-2024 History: Weakness in left side of face [...] artery narrowing is assessed using the [place] Symptomatic Carotid Endarterectomy Trial (NASCET) method. Comparison: [...] Kenneth Rothman MD on 04/09/2024 8:34 AM [facility] Kenneth Rothman MD - 04/09/2024 History: Weakness in left side of face [...] artery narrowing is assessed using the [place] Symptomatic Carotid Endarterectomy Trial (NASCET) method. Comparison: [...] Kenneth Rothman MD on 04/09/2024 8:34 AM [facility] Study observation (narrative) [facility] CTA Carotid artery W contras t IVOrdered By: Kenneth Rothman on 04-09-2024 [facility] Work Phone: CTA Head Arteries W contrast [place] 04-09-2024 CLINICAL INFORMATION : stroke symptoms unsteady gait and left-sided weakness [...] Bonnie Thomson MD on 04/09/2024 8:39 AM [facility] Bonnie Thomson MD - 04/09/2024 CLINICAL INFORMATION: stroke symptoms unsteady gait and [...] Bonnie Thomson MD on 04/09/2024 8:39 AM [facility] Study observation (narrative) [facility] CTA Head Arteries W contrast IVOrdered By: Bonnie Thomson on 04-09-2024 [facility] Work Phone: ED NIHSS Screeningon 03-27 Yudelka Mcmullen DO 04/09/2024 12:33 PM ED NIHSS Screening Performed by: Yudelka Mcmullen DO Authorized by: Yudelka Mcmullen DO Time NIHSS was performed: 04/09/2024 8:16 AM Interval: Baseline LOC: 0 - Alert LOC Questions: 0 - Answers both correctly LOC Commands: 0 - Performs both tasks correctly Best Gaze: 0 - Normal horizontal movements Visual [place]: 0 - No visual field defect Facial Movements: 1 - Minor facial weakness Motor Function Right Arm: 0 - No drift right arm holds for 10 seconds Motor Function Left Arm: 1 - Left arm falls before 10 seconds, does not touch bed Motor Function Right Le - No drift right leg holds for full 5 seconds Motor Function Left Le - No drift left leg, holds for full 5 seconds Limb Ataxia: 0 - No limb ataxia Sensory: 0 - No sensory loss Language: 0 - Language normal Articulation: 0 - Articulation normal Extinction or Inattention: 0 - Extinction or inattention absent TOTAL SCORE: 2 ONSET OF SYMPTOMS: Date: 04/08/2024 Time: 22:30 EDT NIHSS stroke scale completed Onset: Onset greater than 4.5 hours - Patient not eligible for TPA Stroke team initiated FINAL EVALUATION FOR THROMBOLYTIC: Do presenting disabilities interfere with lifestyle(i.e. work, hobbies, entertainment etc.?: No NIHSS TOTAL SCORE: 2 Other Contraindications NIHSS Low; No interference with lifestyle [facility] E[facility] 12 leadon 04-09-2024 TRACEMASTERVUE [facility] Glucose Glucometer (BldC) [M ass/Vol]on 04-09-2024 Glucose [Mass/Vol] 190 mg/dL High 65-99 [facility] Glucose [Mass/Vol] 222 mg/dL High 65 - 99 mg/dL [facility] Interpretation and review of laboratory results Abnormal [facility] Glucose [Mass/Vol] 222 mg/dL High 65-99 [facility] Glucose [Mass/Vol] 258 mg/dL High 65 - 99 mg/dL [facility] Interpretation and review of laboratory results Abnormal [facility] Glucose [Mass/Vol] 258 mg/dL High 65-99 [facility] HGB A1C (GLYCO-HGB)on 2023 Glucose [Mass/Vol] 169 mg/dL Normal [facility] Comment on above: Performed By: #### P INR, 88677-5, 93238-3, CBCA, 38534-3, CMP, 4548-4, 6873-4 #### [facility] ([id number]) [address] [place] [address] 84402 #### HA1C #### [facility] ([id number]) [facility] [facility], [address] [place] [address] HbA1c (Bld) [Mass fraction] 7.5 % High 4.4-5.6 [facility] Comment on above: Result Comment: NOTE ADA Guidelines Result HgbA1c Normal : less than 5.7 % Prediabetes : 5.7 % to 6.4 % Diabetes : > 6.4 % Use with caution in patients with abnormal hemoglobin variants as the half-life of red blood cells and in vivo glycation rates are affected. Performed By: #### P INR, 78653-1, 55534-8, CBCA, 00033-4, CMP, 4548-4, 6873-4 #### [facility] ([id number]) [address] [place] [address] 03101 #### HA1C #### [facility] ([id number]) [address] [facility], [address] [place] [address] Hemoglobin A1con 04-09-2024 Average glucose Estimated from glycated hemoglobin (Bld) [Mass/Vol] 169 mg/dL [facility] HbA1c (Bld) [Mass fraction] 7.5 % High 4.4 - 5.6 % [facility] Comment on above: NOTE ADA Guidelines Result HgbA1c Normal : less than 5.7 % Prediabetes : 5.7 % to 6.4 % Diabetes : > 6.4 % Use with caution in patients with abnormal hemoglobin variants as the half-life of red blood cells and in vivo glycation rates are affected. Interpretation and review of laboratory results Abnormal [facility] Lipid 1996 panelon Cholesterol [Mass/Vol] 142 mg/dL Low 150 - 200 mg/dL [facility] Cholesterol in HDL [Mass/Vol] 27 mg/dL Low 39 - PINF mg/dL [facility] Comment on above: HDL <40 mg/dL - High Risk HDL > or = 40mg/dL- Desirable HDL >60 mg/dL - Negative Risk Cholesterol in LDL [Mass/Vol] 76 mg/dL NINF - 130 mg/dL [facility] Comment on above: LDL <100 mg/dL - Desirable LDL >160 mg/dL - High Risk Cholesterol in VLDL [Mass/Vol] 39 mg/dL High 0 - 30 mg/dL [facility] Cholesterol.total/Chol esterol in HDL [Mass ratio] 5.3 {ratio} High 1.0 - 5.0 [facility] Interpretation and review of laboratory results Abnormal [facility] Triglyceride [Mass/Vol] 196 mg/dL High 27 - 150 mg/dL [facility] Cholesterol [Mass/Vol] 142 mg/dL Low 150-[address] [facility] Comment on above: Performed By: #### P INR, 90076-5, 19003-9, CBCA, 50845-5, CMP, 4548-4, 6873-4 #### [facility] ([id number]) [address] [place] [address] 87838 ###Raquel HA1C #### [facility] ([id number]) [address] [facility], [address] [place] [address] Cholesterol in HDL [Mass/Vol] 27 mg/dL Low >39 [facility] Comment on above: Result Comment: HDL <40 mg/dL - High Risk HDL > or = 40mg/dL- Desirable HDL >60 mg/dL - Negative Risk Performed By: #### P INR, 62683-5, 21243-4, CBCA, 06661-0, CMP, 4548-4, 6873-4 #### [facility] ([id number]) [address] [place] [address] 23888 ###Raquel HA1C #### [facility] ([id number]) [address], [address] [place] [address] Cholesterol in LDL [Mass/Vol] 76 mg/dL Normal <130 [facility] Comment on above: Result Comment: LDL <100 mg/dL - Desirable LDL >160 mg/dL - High Risk Performed By: #### P INR, 26983-8, 54843-8, CBCA, 67170-0, CMP, 4548-4, 6873-4 #### [facility] ([id number]) [address] [place] [address] 98827 #### HA1C #### [facility] ([id number]) [address], [address] [place] [address] Cholesterol in VLDL [Mass/Vol] 39 mg/dL High 0-30 [facility] Comment on above: Performed By: #### P INR, 61176-7, 23334-8, CBCA, 53268-8, CMP, 4548-4, 6873-4 #### [facility] ([id number]) [address] [place] [address] 70661 #### HA1C #### [facility] ([id number]) [address] [facility], [address] [place] [address] CHOLESTEROL:HDL 5.3 High 1.0-5.0 [facility] Comment on above: Performed By: #### P INR, 73365-5, 73100-9, CBCA, 71824-8, CMP, 4548-4, 6873-4 #### [facility] ([id number]) [address] [place] [address] 43784 #### HA1C #### [facility] ([id number]) [address] [facility], [address] [place] [address] Triglyceride [Mass/Vol] 196 mg/dL High 27-150 [facility] Comment on above: Performed By: #### P INR, 27251-0, 13613-9, CBCA, 01537-1, CMP, 4548-4, 6873-4 #### [facility] ([id number]) [address] [place] [address] 84420 #### HA1C #### [facility] ([id number]) [address] [facility], [address] [place] [address]21 MR BRAIN WO CONTon 4 MR BRAIN [...] than peripheral volume loss. Bilateral hippocampal atrophy, uuvz-nt-frhfspgp in severity. Few scattered foci of T2/FLAIR [...] Emmanuel Pastrana on 04/09/2024 9:55 AM Normal [facility] MR Brain WO contraston 04-09 STUDY: MR BRAIN WO C ONT INDICATION: Stroke sx, M1 and M2 stenosis [...] than peripheral volume loss. Bilateral hippocampal atrophy, irov-ii-xhnbcesi in severity. Few scattered foci of T2/FLAIR [...] by Emmanuel Pastrana on 04/09/2024 9:55 AM Emmanuel Cardenas MD - 04/09/2024 STUDY: MR BRAIN WO CONT INDICATION: Stroke [...] than peripheral volume loss. Bilateral hippocampal atrophy, hmmd-ys-phpcmwme in severity. Few scattered foci of T2/FLAIR [...] by Emmanuel Pastrana on 04/09/2024 9:55 AM [facility] Radiology Study observation (narrative) [facility] MR Brain WO contrastOrdered By: Emmanuel Pastrana on 04-09-2024 [facility] Work Phone: No Panel Informationon 04-09 Interpretation and review of laboratory results Abnormal [facility] PHOSPHORUSon 04-09-2024 Phosphate [Mass/Vol] 4.5 mg/dL Normal 2.4-4.9 [facility] Comment on above: Performed By: #### P INR, 05080-0, 02176-5, CBCA, 52478-1, CMP, 4548-4, 6873-4 #### [facility] ([id number]) [address] [place] [address] 58054 #### HA1C #### [facility] ([id number]) [address] [facility], [address] [place] [address] PROTIME AND INRon 04-09-2024 INR Coag (PPP) [Relative time] 1.2 {INR} High 0.8-1.1 [facility] Comment on above: Performed By: #### P INR, 31602-6, 79335-0, CBCA, 13507-4, CMP, 4548-4, 6873-4 #### [facility] ([id number]) [address] [place] [address] 64904 #### HA1C #### [facility] ([id number]) [address] [facility], [address] [place] [address] PT Coag (PPP) [Time] 14.0 s High 9.8-13.2 [facility] Comment on above: Result Comment: NEW REFERENCE RANGE Performed By: #### P INR, 09052-3, 58611-3, CBCA, 64750-4, CMP, 4548-4, 6873-4 #### [facility] ([id number]) [address] [place] [address], [place] [address] #### HA1C #### [facility] ([id number]) [address] [facility], [address] [place] [address] Phosphate [Mass/Vol]on 04-09 [facility] Phosphoruson 04-09-2024 Phosphate [Mass/Vol] 4.5 mg/dL 2.4 - 4 .9 mg/dL [facility] Protime & INRon 04-09-2024 INR Coag (PPP) [Relative time] 1.2 {INR} High [facility] PT Coag (PPP) [Time] 14.0 s High [facility] Comment on above: NEW REFERENCE RANGE Troponin I, High Sensitivity on 04-09-2024 Troponin I.cardiac High sensitivity method [Mass/Vol] 38 ng/L High NINF - 21 ng/L [facility] Comment on above: Elevations of hs-Troponin may be due to causes other than myocardial ischemia. Recommend serial hs-Troponin testing be performed. For the initial evaluation and management of chest pain patients, refer to the algorithms linked below. Emergency Patient: [email or web address]& uh=acaea Inpatient: [email or web address]& uh=acaea Troponin I, High Sensitivity 1 Houron 04-09-2024 Troponin I.cardiac High sensitivity method [Mass/Vol] 60 ng/L High NINF - 21 ng/L [facility] Comment on above: Elevations of hs-Troponin may be due to causes other than myocardial ischemia. Recommend serial hs-Troponin testing be performed. For the initial evaluation and management of chest pain patients, refer to the algorithms linked below. Emergency Patient: [email or web address]& uh=acaea Inpatient: [email or web address]& uh=acaea Troponin I, High Sensitivity 3 Houron 04-09-2024 Troponin I.cardiac High sensitivity method [Mass/Vol] 113 ng/L High NINF - 21 ng/L [facility] Comment on above: Elevations of hs-Troponin may be due to causes other than myocardial ischemia. Recommend serial hs-Troponin testing be performed. For the initial evaluation and management of chest pain patients, refer to the algorithms linked below. Emergency Patient: [email or web address]& uh=acaea Inpatient: [email or web address]& uh=acaea Troponin I.cardiac High sens itivity method [Mass/Vol]on 04-09-2024 Interpretation and review of laboratory results Abnormal [facility] 3 HOUR TROP I, HIGH SENSITIVITY 113 ng/L High <21 [facility] Comment on above: Result Comment: Elevations of hs-Troponin may be due to causes other than myocardial ischemia. Recommend serial hs-Troponin testing be performed. For the initial evaluation and management of chest pain patients, refer to the algorithms linked below. Emergency Patient: [email or web address]& uh=acaea Inpatient: [email or web address]& uh=acaea Performed By: #### P INR, 71636-2, 49589-8, CBCA, 84374-3, CMP, 4548-4, 6873-4 #### [facility] ([id number]) [address] [place] [address] 38074 #### HA1C #### [facility] ([id number]) [address] [facility], [address] [place] [address] Interpretation and review of laboratory results Abnormal [facility] 1 HOUR TROP I, HIGH SENSITIVITY 60 ng/L High <21 [facility] Comment on above: Result Comment: Elevations of hs-Troponin may be due to causes other than myocardial ischemia. Recommend serial hs-Troponin testing be performed. For the initial evaluation and management of chest pain patients, refer to the algorithms linked below. Emergency Patient: [email or web address]& uh=acaea Inpatient: [email or web address]& uh=acaea Performed By: #### P INR, 94158-6, 63994-6, CBCA, 40859-3, CMP, 4548-4, 6873-4 #### [facility] ([id number]) [address] [place] [address]1273 #### HA1C #### [facility] ([id number]) [address] [facility], [address] [place] [address] Interpretation and review of laboratory results Abnormal [facility] TROPONIN I, HIGH SENSITIVITY 38 ng/L High <21 [facility] Comment on above: Result Comment: Elevations of hs-Troponin may be due to causes other than myocardial ischemia. Recommend serial hs-Troponin testing be performed. For the initial evaluation and management of chest pain patients, refer to the algorithms linked below. Emergency Patient: [email or web address]& uh=acaea Inpatient: [email or web address]& uh=acaea Performed By: #### P INR, 60408-4, 93403-0, CBCA, 15673-0, CMP, 4548-4, 6873-4 #### [facility] ([id number]) [address] [place] [address], [place] [address] #### HA1C #### [facility] ([id number]) [address] [place] [address], [address] [place] [address] XR ANKLE LT MIN 3 VWSon 03-27 [...] Kenneth Rothman MD on 04/09/2024 9:32 AM [facility] XR Ankle - left 3 Viewson History: Fall with left ankle bruising Exam/Technique: [...] Kenneth Rothman MD on 04/09/2024 9:32 AM Kenneth Chawla MD - 04/09/2024 History: Fall with left ankle bruising Exam/Technique: [...] Kenneth Rothman MD on 04/09/2024 9:32 AM [facility] Radiology Study observation (narrative) [facility] XR KNEE LT 3 VWSon 4 XR [...] Keyes MD on 04/09/2024 9:29 AM Normal [facility] XR Knee - left 3 Viewson Left Knee: 04/09/2024 9:08 AM. Reason for [...] Angela Keyes MD on 04/09/2024 9:29 AM Angela Johns MD - 04/09/2024 Left Knee: 04/09/2024 9:08 AM. Reason for [...] Angela Keyes MD on 04/09/2024 9:29 AM [facility] Radiology Study observation (narrative) [facility] XR Knee - left 3 ViewsOrdere d By: Angela Keyes on 04-09-2024 [facility] Work Phone: XR PELVIS 1 OR 2 VWSon 04-09 [...] Rothman MD on 04/09/2024 9:37 AM Normal [facility] [facility] XR Pelvis 1 or 2 Viewson History: Fall with left-sided pain Exam/Technique: Single [...] Kenneth Rothman MD on 04/09/2024 9:37 AM Kenneth Chawla MD - 04/09/2024 History: Fall with left-sided pain Exam/Technique: Single [...] Kenneth Rothman MD on 04/09/2024 9:37 AM [facility] Radiology Study observation (narrative) [facility] XR WRIST RT MIN 3 VWSon 03-27 [...] Rothman MD on 04/09/2024 9:40 AM Normal [facility] XR Wrist - right 3 Viewson 0 04-09-2024 History: Bruising. Recent fall Exam/Technique: PA, oblique, [...] Kenneth Rothman MD on 04/09/2024 9:40 AM Kenneth Chawla MD - 04/09/2024 History: Bruising. Recent fall Exam/Technique: PA, oblique, [...] Kenneth Rothman MD on 04/09/2024 9:40 AM [email or web address] Radiology Study observation (narrative) [facility] aPTT Coag (PPP) [Time]on aPTT Coag (Bld) [Time] 24 s Low 26-[address] [facility] Comment on above: Result Comment: NEW REFERENCE RANGE Performed By: #### P INR, 54688-0, 81115-2, CBCA, 34258-2, CMP, 4548-4, 6873-4 #### [facility] ([id number]) [address] [place] [address], [place] [address] #### HA1C #### [facility] ([id number]) [address] [facility], [address] [place] [address] Large Joint Injection/Arthro centesis - PA: R kneeon 02-12-2024 Klaus Yeboah MD 02/18/2024 2:12 PM Large Joint Injection/Arthrocentesi s - PA: R knee on 02/12/2024 9:23 AM Indications: pain Details: 22 G needle, anterolateral approach Medications: 60 mg hyaluronate sodium, stabilized 60 mg/3 mL Outcome: tolerated well, no immediate complications Procedure, treatment alternatives, risks and benefits explained, specific risks discussed. Consent was given by the patient. Patient was prepped and draped in the usual sterile fashion. MANUALLY TRANSCRIBED RESULTS [facility] XR Knee - right 4 Viewson Findings: Standing A P, Kennedy, lateral, and sunrise views of the [...] space and varus deformity. MANUALLY TRANSCRIBED RESULTS [facility] Radiology Study observation (narrative) [facility] BASIC METABOLIC PANLon 11-05 Anion gap [Moles/Vol] 11 mmol/L Normal 5-15 [facility] Comment on above: Performed By: #### P INR, 60643-5, 07822-9, CBCA, 44779-9, CMP, 4548-4, 6873-4 #### [facility] ([id number]) [address] [place] [address]20 #### HA1C #### [facility] ([id number]) [address], [address] [place] [address] Calcium [Mass/Vol] 8.8 mg/dL Normal 8.5-10.5 [facility] Comment on above: Performed By: #### P INR, 16009-3, 74719-5, CBCA, 93726-1, CMP, 4548-4, 6873-4 #### [facility] ([id number]) [address] [place] [address] 12766 #### HA1C #### [facility] ([id number]) [address], [address] [place] [address] Chloride [Moles/Vol] 96 mmol/L Low 98-109 [facility] Comment on above: Performed By: #### P INR, 18428-1, 48080-5, CBCA, 79903-0, CMP, 4548-4, 6873-4 #### [facility] ([id number]) [address] [place] [address]1614 #### HA1C #### [facility] ([id number]) [address], [address] [place] [address] CO2 [Moles/Vol] 24 mmol/L Normal 22-32 [facility] Comment on above: Performed By: #### P INR, 81318-2, 75849-0, CBCA, 56642-3, CMP, 4548-4, 6873-4 #### [facility] ([id number]) [address] [place] [address] 89726 #### HA1C #### [facility] ([id number]) [address] [facility], [address] [place] [address] Creatinine [Mass/Vol] 0.75 mg/dL Normal 0.70-1.20 [facility] Comment on above: Result Comment: METH OD TRACEABLE TO IDMS STANDARD Performed By: #### P INR, 30810-8, 27702-7, CBCA, 41071-7, CMP, 4548-4, 6873-4 #### [facility] ([id number]) [address] [place] [address] 22381 #### HA1C #### [facility] ([id number]) [address] [facility], [address] [place] [address] eGFR (CKD-EPI) NON-RACE DEPENDENT >90 Normal >59 [facility] Comment on above: Result Comment: Reported eGFR is based on the CKD-EPI 2020 equation that does not use a race coefficient. Performed By: #### P INR, 92664-6, 36750-1, CBCA, 30920-3, CMP, 4548-4, 6873-4 #### [facility] ([id number]) [address] [place] [address] 20418 #### HA1C #### [facility] ([id number]) [address] [facility], [address] [place] [address] Glucose [Mass/Vol] 263 mg/dL High 65-99 [facility] Comment on above: Performed By: #### P INR, 91166-9, 04802-1, CBCA, 02579-1, CMP, 4548-4, 6873-4 #### [facility] ([id number]) [address] [place] [address] 42042 #### HA1C #### [facility] ([id number]) [address] [facility], [address] [place] [address] Potassium [Moles/Vol] 4.2 mmol/L Normal 3.5-5.0 [facility] Comment on above: Performed By: #### P INR, 92508-8, 87288-9, CBCA, 49422-6, CMP, 4548-4, 6873-4 #### [facility] ([id number]) [address] [place] [address] 85161 #### HA1C #### [facility] ([id number]) [address] [place] [address], [address] [place] [address] Sodium [Moles/Vol] 131 mmol/L Low 134-146 [facility] Comment on above: Performed By: #### P INR, 08400-0, 02918-7, CBCA, 54541-7, CMP, 4548-4, 6873-4 #### [facility] ([id number]) [address] [place] [address] 34087 #### HA1C #### [facility] ([id number]) [address] [place] [address], [address] [place] [address] Urea nitrogen [Mass/Vol] 21 mg/dL Normal 5-27 [facility] Comment on above: Performed By: #### P INR, 65381-4, 49265-8, CBCA, 73041-7, CMP, 4548-4, 6873-4 #### [facility] ([id number]) [address] [place] [address] 21005 #### HA1C #### [facility] ([id number]) [address] [place] [address], [address] [place] [address] CBC AND AUTO DIFFon 10-29-19 Erythrocyte distribution width (RBC) [Ratio] 13.8 % Normal 11.5-15.0 [facility] Comment on above: Performed By: #### P INR, 21107-2, 54422-7, CBCA, 05061-4, CMP, 4548-4, 6873-4 #### [facility] ([id number]) [address] [place] [address]9210 #### HA1C #### [facility] ([id number]) [address], [address] [place] [address] Hematocrit (Bld) [Volume fraction] 46.7 % Normal 39-49 [facility] Comment on above: Performed By: #### P INR, 27096-8, 08009-7, CBCA, 26523-4, CMP, 4548-4, 6873-4 #### [facility] ([id number]) [address] [place] [address] 55610 #### HA1C #### [facility] ([id number]) [address], [address] [place] [address] Hemoglobin (Bld) [Mass/Vol] 16.0 g/dL Normal 13.0-17.0 [facility] Comment on above: Performed By: #### P INR, 85470-5, 14461-7, CBCA, 55978-4, CMP, 4548-4, 6873-4 #### [facility] ([id number]) [address] [place] [address] 72465 #### HA1C #### [facility] ([id number]) [address], [address] [place] [address] LYMPHOCYTE, ATYPICAL 8.8 % Normal [facility] Comment on above: Performed By: #### P INR, 56982-7, 79549-8, CBCA, 22197-4, CMP, 4548-4, 6873-4 #### [facility] ([id number]) [address] [place] [address] 17266 #### HA1C #### [facility] ([id number]) [address] [facility], [address] [place] [address] Lymphocytes (Bld) [#/Vol] 1.9 10*3/uL Normal 1.0-3.5 [facility] Comment on above: Performed By: #### P INR, 03381-6, 33059-3, CBCA, 46254-4, CMP, 4548-4, 6873-4 #### [facility] ([id number]) [address] [place] [address] 81251 #### HA1C #### [facility] ([id number]) [address] [place] [address], [address] [place] [address] Lymphocytes/100 WBC (Bld) 46.1 % Normal [facility] Comment on above: Performed By: #### P INR, 05419-8, 29673-5, CBCA, 47610-3, CMP, 4548-4, 6873-4 #### [facility] ([id number]) [address] [place] [address] 83[address] #### HA1C #### [facility] ([id number]) [address] [place] [address], [address] [place] [address] MCH (RBC) [Entitic mass] 29.4 pg Normal 27-34 [facility] Comment on above: Performed By: #### P INR, 17946-6, 77790-0, CBCA, 04643-5, CMP, 4548-4, 6873-4 #### [facility] ([id number]) [address] [place] [address] 07518 #### HA1C #### [facility] ([id number]) [address] [place] [address], [address] [place] [address] MCHC (RBC) [Mass/Vol] 34.2 g/dL Normal 32-36 [facility] Comment on above: Performed By: #### P INR, 36587-5, 84426-4, CBCA, 57768-4, CMP, 4548-4, 6873-4 #### [facility] ([id number]) [address] [place] [address] 79092 #### HA1C #### [facility] ([id number]) [address], [address] [place] [address] MCV (RBC) [Entitic vol] 86 fL Normal 80-100 [facility] Comment on above: Performed By: #### P INR, 35966-4, 06075-5, CBCA, 84714-2, CMP, 4548-4, 6873-4 #### [facility] ([id number]) [address] [place] [address] 47901 #### HA1C #### [facility] ([id number]) [address] [facility], [address] [place] [address] Monocytes (Bld) [#/Vol] 0.2 10*3/uL Normal 0-0.9 [facility] Comment on above: Performed By: #### P INR, 44140-3, 00444-3, CBCA, 95222-3, CMP, 4548-4, 6873-4 #### [facility] ([id number]) [address] [place] [address] 20562 #### HA1C #### [facility] ([id number]) [address] [facility], [address] [place] [address] Monocytes/100 WBC (Bld) 4.9 % Normal [facility] Comment on above: Performed By: #### P INR, 94289-3, 60232-2, CBCA, 22213-8, CMP, 4548-4, 6873-4 #### [facility] ([id number]) [address] [place] [address] 59360 #### HA1C #### [facility] ([id number]) [address], [address] [place] [address] Neutrophils (Bld) [#/Vol] 1.4 10*3/uL Low 1.5-6.6 [facility] Comment on above: Performed By: #### P INR, 26438-5, 78266-6, CBCA, 77157-7, CMP, 4548-4, 6873-4 #### [facility] ([id number]) [address] [place] [address] 23770 #### HA1C #### [facility] ([id number]) [address] [facility], [address] [place] [address] Platelet mean volume (Bld) [Entitic vol] 7.7 fL Normal 7-12 [facility] Comment on above: Performed By: #### P INR, 74377-0, 92639-8, CBCA, 62118-6, CMP, 4548-4, 6873-4 #### [facility] ([id number]) [address] [place] [address] 98051 #### HA1C #### [facility] ([id number]) [address] [facility], [address] [place] [address] Platelets (Bld) [#/Vol] 214 10*3/uL Normal 150-450 [facility] Comment on above: Performed By: #### P INR, 85259-0, 24378-8, CBCA, 19627-0, CMP, 4548-4, 6873-4 #### [facility] ([id number]) [address] [place] [address] 19598 #### HA1C #### [facility] ([id number]) [address], [address] [place] [address] RBC COUNT 5.43 X10E12/L Normal 4.10-5.70 [facility] Comment on above: Performed By: #### P INR, 71256-4, 51694-6, CBCA, 11732-7, CMP, 4548-4, 6873-4 #### [facility] ([id number]) [address] [place] [address] 27595 #### HA1C #### [facility] ([id number]) [address], [address] [place] [address] SEG NEUTROPHIL 40.2 % Normal [facility] Comment on above: Performed By: #### P INR, 57932-6, 84477-5, CBCA, 28075-5, CMP, 4548-4, 6873-4 #### [facility] ([id number]) [address] [place] [address] 90811 #### HA1C #### [facility] ([id number]) [address], [address] [place] [address] WBC (Bld) [#/Vol] 3.4 10*3/uL Low 4.0-11.0 [facility] Comment on above: Performed By: #### P INR, 71881-9, 08430-4, CBCA, 42319-9, CMP, 4548-4, 6873-4 #### [facility] ([id number]) [address] [place] [address] 12848 #### HA1C #### [facility] ([id number]) [address], [address] [place] [address] COMPREHENSIVE METABOLIC PANE [place] 10-29-2023 Albumin [Mass/Vol] 4.1 g/dL Normal 3.2-5.3 [facility] Comment on above: Performed By: #### P INR, 54798-3, 58042-8, CBCA, 57237-4, CMP, 4548-4, 6873-4 #### [facility] ([id number]) [address] [place] [address] 83549 #### HA1C #### [facility] ([id number]) [address], [address] [place] [address] ALP [Catalytic activity/Vol] 66 U/L Normal 39-130 [facility] Comment on above: Performed By: #### P INR, 48034-8, 60301-3, CBCA, 65995-1, CMP, 4548-4, 6873-4 #### [facility] ([id number]) [address] [place] [address] 23517 #### HA1C #### [facility] ([id number]) [address] [facility], [address] [place] [address] ALT [Catalytic activity/Vol] 27 U/L Normal 0-40 [facility] Comment on above: Performed By: #### P INR, 30669-7, 63523-1, CBCA, 21998-7, CMP, 4548-4, 6873-4 #### [facility] ([id number]) [address] [place] [address] 75160 #### HA1C #### [facility] ([id number]) [address] [facility], [address] [place] [address] Anion gap [Moles/Vol] 9 mmol/L Normal 5-15 [facility] Comment on above: Performed By: #### P INR, 02272-0, 40656-5, CBCA, 92120-5, CMP, 4548-4, 6873-4 #### [facility] ([id number]) [address] [place] [address] 56933 #### HA1C #### [facility] ([id number]) [address] [facility], [address] [place] [address] AST [Catalytic activity/Vol] 19 U/L Normal 0-41 [facility] Comment on above: Performed By: #### P INR, 83666-3, 54732-4, CBCA, 14617-6, CMP, 4548-4, 6873-4 #### [facility] ([id number]) [address] [place] [address] 91357 #### HA1C #### [facility] ([id number]) [address], [address] [place] [address] Bilirubin [Mass/Vol] 0.7 mg/dL Normal 0.3-1.2 [facility] Comment on above: Performed By: #### P INR, 19595-9, 68290-6, CBCA, 18287-1, CMP, 4548-4, 6873-4 #### [facility] ([id number]) [address] [place] [address] 85629 #### HA1C #### [facility] ([id number]) [address] [facility], [address] [place] [address] Calcium [Mass/Vol] 9.1 mg/dL Normal 8.5-10.5 [facility] Comment on above: Performed By: #### P INR, 11073-5, 54683-7, CBCA, 00123-5, CMP, 4548-4, 6873-4 #### [facility] ([id number]) [address] [place] [address] 79957 #### HA1C #### [facility] ([id number]) [address], [address] [place] [address] Chloride [Moles/Vol] 94 mmol/L Low 98-109 [facility] Comment on above: Performed By: #### P INR, 16555-9, 49135-9, CBCA, 96151-4, CMP, 4548-4, 6873-4 #### [facility] ([id number]) [address] [place] [address] 30514 #### HA1C #### [facility] ([id number]) [address], [address] [place] [address] CO2 [Moles/Vol] 28 mmol/L Normal 22-32 [facility] Comment on above: Performed By: #### P INR, 33495-4, 84314-4, CBCA, 81208-5, CMP, 4548-4, 6873-4 #### [facility] ([id number]) [address] [place] [address] 74376 #### HA1C #### [facility] ([id number]) [address] [place] [address], [address] [place] [address] Creatinine [Mass/Vol] 0.78 mg/dL Normal 0.70-1.20 [facility] Comment on above: Result Comment: METH OD TRACEABLE TO IDMS STANDARD Performed By: #### P INR, 94864-5, 31029-0, CBCA, 54542-2, CMP, 4548-4, 6873-4 #### [facility] ([id number]) [address] [place] [address] 08853 #### HA1C #### [facility] ([id number]) [address] [place] [address], [address] [place] [address] eGFR (CKD-EPI) NON-RACE DEPENDENT >90 Normal >59 [facility] Comment on above: Result Comment: Reported eGFR is based on the CKD-EPI 2020 equation that does not use a race coefficient. Performed By: #### P INR, 56363-0, 03690-2, CBCA, 08689-3, CMP, 4548-4, 6873-4 #### [facility] ([id number]) [address] [place] [address] 71954 #### HA1C #### [facility] ([id number]) [address] [place] [address], [address] [place] [address] Glucose [Mass/Vol] 232 mg/dL High 65-99 [facility] Comment on above: Performed By: #### P INR, 96912-1, 55653-2, CBCA, 62870-1, CMP, 4548-4, 6873-4 #### [facility] ([id number]) [address] [place] [address] 36267 #### HA1C #### [facility] ([id number]) [address], [address] [place] [address] Potassium [Moles/Vol] 4.1 mmol/L Normal 3.5-5.0 [facility] Comment on above: Performed By: #### P INR, 82396-4, 07095-3, CBCA, 42386-8, CMP, 4548-4, 6873-4 #### [facility] ([id number]) [address] [place] [address] 49814 #### HA1C #### [facility] ([id number]) [address] [facility], [address] [place] [address] Protein [Mass/Vol] 7.1 g/dL Normal 6.0-8.0 [facility] Comment on above: Performed By: #### P INR, 30982-8, 62999-9, CBCA, 36385-5, CMP, 4548-4, 6873-4 #### [facility] ([id number]) [address] [place] [address] 85656 #### HA1C #### [facility] ([id number]) [address] [facility], [address] [place] [address] Sodium [Moles/Vol] 131 mmol/L Low 134-146 [facility] Comment on above: Performed By: #### P INR, 64449-5, 71962-6, CBCA, 37044-3, CMP, 4548-4, 6873-4 #### [facility] ([id number]) [address] [place] [address] 15783 #### HA1C #### [facility] ([id number]) [address], [address] [place] [address] Urea nitrogen [Mass/Vol] 14 mg/dL Normal 5-27 [facility] Comment on above: Performed By: #### P INR, 90330-2, 85732-5, CBCA, 35477-4, CMP, 4548-4, 6873-4 #### [facility] ([id number]) [address] [place] [address] 32500 #### HA1C #### [facility] ([id number]) [address] [facility], [address] [place] [address] MAGNESIUMon 10-29-2023 Magnesium [Mass/Vol] 1.9 mg/dL Normal 1.8-2.6 [facility] Comment on above: Performed By: #### P INR, 03663-0, 36052-6, CBCA, 97450-0, CMP, 4548-4, 6873-4 #### [facility] ([id number]) [address] [place] [address] 63334 #### HA1C #### [facility] ([id number]) [address] [place] [address], [address] [place] [address] CBC AND AUTO DIFFon 10-28-19 24 ABSOLUTE BASOPHIL 0.1 X10E9/L Normal 0.0-0.2 [facility] Comment on above: Performed By: #### P INR, 43000-9, 87184-7, CBCA, 67244-9, CMP, 4548-4, 6873-4 #### [facility] ([id number]) [address] [place] [address] 73795 #### HA1C #### [facility] ([id number]) [address] [place] [address], [address] [place] [address] ABSOLUTE NEUTROPHIL 1.5 X10E9/L Normal 1.5-6.6 [facility] Comment on above: Performed By: #### P INR, 23523-7, 01586-7, CBCA, 90639-7, CMP, 4548-4, 6873-4 #### [facility] ([id number]) [address] [place] [address] 90648 #### HA1C #### [facility] ([id number]) [address] [facility], [address] [place] [address] Basophils/100 WBC (Bld) 1.4 % Normal [facility] Comment on above: Performed By: #### P INR, 86545-4, 12351-9, CBCA, 13055-3, CMP, 4548-4, 6873-4 #### [facility] ([id number]) [address] [place] [address] 91741 #### HA1C #### [facility] ([id number]) [address] [facility], [address] [place] [address] Eosinophils (Bld) [#/Vol] 0.1 10*3/uL Normal 0.0-0.4 [facility] Comment on above: Performed By: #### P INR, 02919-8, 30116-0, CBCA, 94616-3, CMP, 4548-4, 6873-4 #### [facility] ([id number]) [address] [place] [address] 38629 #### HA1C #### [facility] ([id number]) [address] [facility], [address] [place] [address] Eosinophils/100 WBC (Bld) 3.1 % Normal [facility] Comment on above: Performed By: #### P INR, 28885-9, 76149-7, CBCA, 91017-0, CMP, 4548-4, 6873-4 #### [facility] ([id number]) [address] [place] [address] #### HA1C #### [facility] ([id number]) [address], [address] [place] [address] Erythrocyte distribution width (RBC) [Ratio] 13.6 % Normal 11.5-15.0 [facility] Comment on above: Performed By: #### P INR, 57870-6, 72337-1, CBCA, 90722-1, CMP, 4548-4, 6873-4 #### [facility] ([id number]) [address] [place] [address] #### HA1C #### [facility] ([id number]) [address], [address] [place] [address] Hematocrit (Bld) [Volume fraction] 42.8 % Normal 39-49 [facility] Comment on above: Performed By: #### P INR, 80434-1, 81871-6, CBCA, 91173-1, CMP, 4548-4, 6873-4 #### [facility] ([id number]) [address] [place] [address] #### HA1C #### [facility] ([id number]) [address], [address] [place] [address] Hemoglobin (Bld) [Mass/Vol] 14.9 g/dL Normal 13.0-17.0 [facility] Comment on above: Performed By: #### P INR, 16342-0, 55800-0, CBCA, 32439-0, CMP, 4548-4, 6873-4 #### [facility] ([id number]) [address] [place] [address] #### HA1C #### [facility] ([id number]) [address], [address] [address] Lymphocytes (Bld) [#/Vol] 1.8 10*3/uL Normal 1.0-3.5 [facility] Comment on above: Performed By: #### P INR, 47168-1, 41013-5, CBCA, 59104-9, CMP, 4548-4, 6873-4 #### [facility] ([id number]) [address] [place] [address] #### HA1C #### [facility] ([id number]) [address], [address] [place] [address] Lymphocytes/100 WBC (Bld) 46.0 % Normal [facility] Comment on above: Performed By: #### P INR, 24960-9, 19812-2, CBCA, 36186-0, CMP, 4548-4, 6873-4 #### [facility] ([id number]) [address] [place] [address] #### HA1C #### [facility] ([id number]) [address], [address] [place] [address] MCH (RBC) [Entitic mass] 29.6 pg Normal 27-34 [facility] Comment on above: Performed By: #### P INR, 58799-8, 68456-5, CBCA, 81969-4, CMP, 4548-4, 6873-4 #### [facility] ([id number]) [address] [place] [address] #### HA1C #### [facility] ([id number]) [address], [address] [place] [address] MCHC (RBC) [Mass/Vol] 34.7 g/dL Normal 32-36 [facility] Comment on above: Performed By: #### P INR, 31613-5, 01804-7, CBCA, 32114-0, CMP, 4548-4, 6873-4 #### [facility] ([id number]) [address] [place] [address] #### HA1C #### [facility] ([id number]) [address], [address] [place] [address] MCV (RBC) [Entitic vol] 86 fL Normal 80-100 [facility] Comment on above: Performed By: #### P INR, 98357-4, 11797-7, CBCA, 18966-9, CMP, 4548-4, 6873-4 #### [facility] ([id number]) [address] [place] [address] #### HA1C #### [facility] ([id number]) [address], [address] [place] [address] Monocytes (Bld) [#/Vol] 0.4 10*3/uL Normal 0-0.9 [facility] Comment on above: Performed By: #### P INR, 64002-3, 78048-7, CBCA, 37500-4, CMP, 4548-4, 6873-4 #### [facility] ([id number]) [address] [place] [address] 98283 #### HA1C #### [facility] ([id number]) [address], [address] [place] [address] Monocytes/100 WBC (Bld) 10.4 % Normal [facility] Comment on above: Performed By: #### P INR, 85963-1, 44294-2, CBCA, 87700-9, CMP, 4548-4, 6873-4 #### [facility] ([id number]) [address] [place] [address] 19225 #### HA1C #### [facility] ([id number]) [address], [address] [place] [address] Neutrophils/100 WBC (Bld) 39.1 % Normal [facility] Comment on above: Performed By: #### P INR, 02549-2, 37933-2, CBCA, 98666-0, CMP, 4548-4, 6873-4 #### [facility] ([id number]) [address] [place] [address] 27603 #### HA1C #### [facility] ([id number]) [address], [address] [place] [address] Platelet mean volume (Bld) [Entitic vol] 7.9 fL Normal 7-12 [facility] Comment on above: Performed By: #### P INR, 90833-3, 74822-4, CBCA, 35565-1, CMP, 4548-4, 6873-4 #### [facility] ([id number]) [address] [place] [address] 37831 #### HA1C #### [facility] ([id number]) [address], [address] [place] [address] Platelets (Bld) [#/Vol] 197 10*3/uL Normal 150-450 [facility] Comment on above: Performed By: #### P INR, 83774-5, 01005-0, CBCA, 74808-6, CMP, 4548-4, 6873-4 #### [facility] ([id number]) [address] [place] [address] 09478 #### HA1C #### [facility] ([id number]) [address], [address] [place] [address] RBC COUNT 5.01 X10E12/L Normal 4.10-5.70 [facility] Comment on above: Performed By: #### P INR, 29455-3, 99244-1, CBCA, 59536-8, CMP, 4548-4, 6873-4 #### [facility] ([id number]) [address] [place] [address] 05668 #### HA1C #### [facility] ([id number]) [address], [address] [place] [address] WBC (Bld) [#/Vol] 3.9 10*3/uL Low 4.0-11.0 [facility] Comment on above: Performed By: #### P INR, 79908-1, 86877-6, CBCA, 86057-4, CMP, 4548-4, 6873-4 #### [facility] ([id number]) [address] [place] [address] 97088 #### HA1C #### [facility] ([id number]) [address] [place] [address], [address] [place] [address] COMPREHENSIVE METABOLIC PANE [place] 10-28-2023 Albumin [Mass/Vol] 3.8 g/dL Normal 3.2-5.3 [facility] Comment on above: Performed By: #### P INR, 08447-1, 70354-0, CBCA, 58429-4, CMP, 4548-4, 6873-4 #### [facility] ([id number]) [address] [place] [address] 24008 #### HA1C #### [facility] ([id number]) [address] [place] [address], [address] [place] [address] ALP [Catalytic activity/Vol] 61 U/L Normal 39-130 [facility] Comment on above: Performed By: #### P INR, 97363-2, 71126-3, CBCA, 12016-8, CMP, 4548-4, 6873-4 #### [facility] ([id number]) [address] [place] [address] 14214 #### HA1C #### [facility] ([id number]) [address] [place] [address], [address] [place] [address] ALT [Catalytic activity/Vol] 22 U/L Normal 0-40 [facility] Comment on above: Performed By: #### P INR, 25429-3, 81363-8, CBCA, 33092-4, CMP, 4548-4, 6873-4 #### [facility] ([id number]) [address] [place] [address] 01616 #### HA1C #### [facility] ([id number]) [address], [address] [place] [address] Anion gap [Moles/Vol] 10 mmol/L Normal 5-15 [facility] Comment on above: Performed By: #### P INR, 98243-9, 40978-7, CBCA, 89310-5, CMP, 4548-4, 6873-4 #### [facility] ([id number]) [address] [place] [address] 87249 #### HA1C #### [facility] ([id number]) [address], [address] [place] [address] AST [Catalytic activity/Vol] 18 U/L Normal 0-41 [facility] Comment on above: Performed By: #### P INR, 04005-5, 06511-8, CBCA, 39827-5, CMP, 4548-4, 6873-4 #### [facility] ([id number]) [address] [place] [address] 45953 #### HA1C #### [facility] ([id number]) [address], [address] [place] [address] Bilirubin [Mass/Vol] 0.8 mg/dL Normal 0.3-1.2 [facility] Comment on above: Performed By: #### P INR, 26087-1, 13930-9, CBCA, 65261-4, CMP, 4548-4, 6873-4 #### [facility] ([id number]) [address] [place] [address] 68643 #### HA1C #### [facility] ([id number]) [address], [address] [place] [address] Calcium [Mass/Vol] 8.5 mg/dL Normal 8.5-10.5 [facility] Comment on above: Performed By: #### P INR, 50898-8, 56122-4, CBCA, 50702-9, CMP, 4548-4, 6873-4 #### [facility] ([id number]) [address] [place] [address] 24743 #### HA1C #### [facility] ([id number]) [address], [address] [place] [address] Chloride [Moles/Vol] 94 mmol/L Low 98-109 [facility] Comment on above: Performed By: #### P INR, 16274-3, 31289-4, CBCA, 69160-1, CMP, 4548-4, 6873-4 #### [facility] ([id number]) [address] [place] [address] 46308 #### HA1C #### [facility] ([id number]) [address] [facility], [address] [place] [address] CO2 [Moles/Vol] 26 mmol/L Normal 22-32 [facility] Comment on above: Performed By: #### P INR, 66989-2, 28771-6, CBCA, 37130-2, CMP, 4548-4, 6873-4 #### [facility] ([id number]) [address] [place] [address] 33998 #### HA1C #### [facility] ([id number]) [address], [address] [place] [address] Creatinine [Mass/Vol] 0.79 mg/dL Normal 0.70-1.20 [facility] Comment on above: Result Comment: METH OD TRACEABLE TO IDMS STANDARD Performed By: #### P INR, 62095-7, 63945-4, CBCA, 68436-0, CMP, 4548-4, 6873-4 #### [facility] ([id number]) [address] [place] [address] 25221 #### HA1C #### [facility] ([id number]) [address], [address] [place] [address] eGFR (CKD-EPI) NON-RACE DEPENDENT >90 Normal >59 [facility] Comment on above: Result Comment: Reported eGFR is based on the CKD-EPI 2021 equation that does not use a race coefficient. Performed By: #### P INR, 03129-2, 93073-9, CBCA, 92418-2, CMP, 4548-4, 6873-4 #### [facility] ([id number]) [address] [place] [address] 67055 #### HA1C #### [facility] ([id number]) [address] [facility], [address] [place] [address] Glucose [Mass/Vol] 228 mg/dL High 65-99 [facility] Comment on above: Performed By: #### P INR, 35176-0, 14754-1, CBCA, 12242-2, CMP, 4548-4, 6873-4 #### [facility] ([id number]) [address] [place] [address] 71396 #### HA1C #### [facility] ([id number]) [address] [facility], [address] [place] [address] Potassium [Moles/Vol] 3.7 mmol/L Normal 3.5-5.0 [facility] Comment on above: Performed By: #### P INR, 45328-9, 96688-5, CBCA, 39570-7, CMP, 4548-4, 6873-4 #### [facility] ([id number]) [address] [place] [address] 25120 #### HA1C #### [facility] ([id number]) [address], [address] [place] [address] Protein [Mass/Vol] 6.3 g/dL Normal 6.0-8.0 [facility] Comment on above: Performed By: #### P INR, 07147-5, 03617-7, CBCA, 18080-8, CMP, 4548-4, 6873-4 #### [facility] ([id number]) [address] [place] [address] 46096 #### HA1C #### [facility] ([id number]) [address] [facility], [address] [place] [address] Sodium [Moles/Vol] 130 mmol/L Low 134-146 [facility] Comment on above: Performed By: #### P INR, 90501-0, 36566-7, CBCA, 97968-2, CMP, 4548-4, 6873-4 #### [facility] ([id number]) [address] [place] [address] 70485 #### HA1C #### [facility] ([id number]) [address] [facility], [address] [place] [address] Urea nitrogen [Mass/Vol] 16 mg/dL Normal 5-27 [facility] Comment on above: Performed By: #### P INR, 40938-9, 06264-9, CBCA, 85810-6, CMP, 4548-4, 6873-4 #### [facility] ([id number]) [address] [place] [address] 18119 #### HA1C #### [facility] ([id number]) [address], [address] [place] [address] CT CTA CAROTIDon 10-28-2023 CT CTA CAROTID [...] Giles MD on 10/28/2023 12:26 PM Normal [facility] CT CTA HEADon 10-28-2023 CT CTA [...] Mayes MD on 10/28/2023 12:38 PM Normal [facility] Glucose Glucometer (BldC) [M ass/Vol]on 01-02-2024 Glucose [Mass/Vol] 226 mg/dL High 65-99 [facility] Glucose [Mass/Vol] 279 mg/dL High 65-99 [facility] Glucose [Mass/Vol] 248 mg/dL High 65-99 [facility] Glucose [Mass/Vol] 221 mg/dL High 65-99 [facility] Lipid 1996 panelon 4 Cholesterol [Mass/Vol] 219 mg/dL High 150-[address] [facility] Comment on above: Performed By: #### P INR, 93531-8, 55980-6, CBCA, 66932-4, CMP, 4548-4, 6873-4 #### [facility] ([id number]) [address] [place] [address] 60762 #### HA1C #### [facility] ([id number]) [address] [facility], [address] [place] [address] Cholesterol in HDL [Mass/Vol] 43 mg/dL Normal >39 [facility] Comment on above: Result Comment: HDL <40 mg/dL - High Risk HDL > or = 40mg/dL- Desirable HDL >60 mg/dL - Negative Risk Performed By: #### P INR, 15280-7, 60849-1, CBCA, 12715-1, CMP, 4548-4, 6873-4 #### [facility] ([id number]) [address] [place] [address] 51305 #### HA1C #### [facility] ([id number]) [address] [facility], [address] [place] [address] Cholesterol in LDL [Mass/Vol] 143 mg/dL High <130 [facility] Comment on above: Result Comment: LDL <100 mg/dL - Desirable LDL >160 mg/dL - High Risk Performed By: #### P INR, 33077-9, 49571-9, CBCA, 96621-4, CMP, 4548-4, 6873-4 #### [facility] ([id number]) [address] [place] [address] 36248 #### HA1C #### [facility] ([id number]) [address] [facility], [address] [place] [address] Cholesterol in VLDL [Mass/Vol] 33 mg/dL High 0-30 [facility] Comment on above: Performed By: #### P INR, 91055-6, 35877-3, CBCA, 42562-4, CMP, 4548-4, 6873-4 #### [facility] ([id number]) [address] [place] [address] 83113 #### HA1C #### [facility] ([id number]) [address] [facility], [address] [place] [address] CHOLESTEROL:HDL 5.1 High 1.0-5.0 [facility] Comment on above: Performed By: #### P INR, 24026-7, 23729-9, CBCA, 01611-1, CMP, 4548-4, 6873-4 #### [facility] ([id number]) [address] [place] [address] 65860 #### HA1C #### [facility] ([id number]) [address] [facility], [address] [place] [address] Triglyceride [Mass/Vol] 164 mg/dL High 27-150 [facility] Comment on above: Performed By: #### P INR, 67983-4, 42427-3, CBCA, 24789-2, CMP, 4548-4, 6873-4 #### [facility] ([id number]) [address] [place] [address] #### HA1C #### [facility] ([id number]) [address] [place] [address] MAGNESIUMon 10-28-2023 Magnesium [Mass/Vol] 1.8 mg/dL Normal 1.8-2.6 [facility] Comment on above: Performed By: #### P INR, 99288-2, 48924-7, CBCA, 24939-6, CMP, 4548-4, 6873-4 #### [facility] ([id number]) [address] [place] [address] #### HA1C #### [facility] ([id number]) [address] [place] [address] MR BRAIN WO CONTon MR BRAIN WO [...] Anderson MD on 10/28/2023 10:39 AM Normal [facility] CBC AND AUTO DIFFon 10-27-19 24 ABSOLUTE BASOPHIL 0.0 X10E9/L Normal 0.0-0.2 [facility] Comment on above: Performed By: #### P INR, 97511-1, 11261-3, CBCA, 54670-3, CMP, 4548-4, 6873-4 #### [facility] ([id number]) [address] [place] [address] 84363 #### HA1C #### [facility] ([id number]) [address] [place] [address], [address] [place] [address] ABSOLUTE NEUTROPHIL 1.8 X10E9/L Normal 1.5-6.6 [facility] Comment on above: Performed By: #### P INR, 13196-5, 43954-8, CBCA, 94369-0, CMP, 4548-4, 6873-4 #### [facility] ([id number]) [address] [place] [address] 34523 #### HA1C #### [facility] ([id number]) [address] [place] [address], [address] [place] [address] Basophils/100 WBC (Bld) 1.2 % Normal [facility] Comment on above: Performed By: #### P INR, 70378-9, 21542-0, CBCA, 86878-9, CMP, 4548-4, 6873-4 #### [facility] ([id number]) [address] [place] [address] 63979 #### HA1C #### [facility] ([id number]) [address], [address] [place] [address] Eosinophils (Bld) [#/Vol] 0.1 10*3/uL Normal 0.0-0.4 [facility] Comment on above: Performed By: #### P INR, 86647-6, 60201-7, CBCA, 72084-0, CMP, 4548-4, 6873-4 #### [facility] ([id number]) [address] [place] [address] 11144 #### HA1C #### [facility] ([id number]) [address], [address] [place] [address] Eosinophils/100 WBC (Bld) 2.5 % Normal [facility] Comment on above: Performed By: #### P INR, 83923-4, 87979-5, CBCA, 44678-2, CMP, 4548-4, 6873-4 #### [facility] ([id number]) [address] [place] [address] 01343 #### HA1C #### [facility] ([id number]) [address], [address] [place] [address] Erythrocyte distribution width (RBC) [Ratio] 13.5 % Normal 11.5-15.0 [facility] Comment on above: Performed By: #### P INR, 03945-4, 21325-9, CBCA, 33811-4, CMP, 4548-4, 6873-4 #### [facility] ([id number]) [address] [place] [address] 80277 #### HA1C #### [facility] ([id number]) [address], [address] [place] [address] Hematocrit (Bld) [Volume fraction] 43.3 % Normal 39-49 [facility] Comment on above: Performed By: #### P INR, 87238-6, 29585-8, CBCA, 08669-7, CMP, 4548-4, 6873-4 #### [facility] ([id number]) [address] [place] [address] 79734 #### HA1C #### [facility] ([id number]) [address], [address] [place] [address] Hemoglobin (Bld) [Mass/Vol] 14.9 g/dL Normal 13.0-17.0 [facility] Comment on above: Performed By: #### P INR, 20760-0, 31326-0, CBCA, 03137-3, CMP, 4548-4, 6873-4 #### [facility] ([id number]) [address] [place] [address] 40007 #### HA1C #### [facility] ([id number]) [address], [address] [place] [address] Lymphocytes (Bld) [#/Vol] 1.3 10*3/uL Normal 1.0-3.5 [facility] Comment on above: Performed By: #### P INR, 09842-7, 34674-1, CBCA, 15425-7, CMP, 4548-4, 6873-4 #### [facility] ([id number]) [address] [place] [address] 38023 #### HA1C #### [facility] ([id number]) [address], [address] [place] [address] Lymphocytes/100 WBC (Bld) 36.9 % Normal [facility] Comment on above: Performed By: #### P INR, 35818-1, 07313-9, CBCA, 56490-9, CMP, 4548-4, 6873-4 #### [facility] ([id number]) [address] [place] [address] 21518 #### HA1C #### [facility] ([id number]) [address] [facility], [address] [place] [address] MCH (RBC) [Entitic mass] 29.3 pg Normal 27-34 [facility] Comment on above: Performed By: #### P INR, 25152-0, 27958-9, CBCA, 61120-6, CMP, 4548-4, 6873-4 #### [facility] ([id number]) [address] [place] [address] 69558 #### HA1C #### [facility] ([id number]) [address] [facility], [address] [place] [address] MCHC (RBC) [Mass/Vol] 34.4 g/dL Normal 32-36 [facility] Comment on above: Performed By: #### P INR, 27993-5, 84949-9, CBCA, 83971-3, CMP, 4548-4, 6873-4 #### [facility] ([id number]) [address] [place] [address] 87426 #### HA1C #### [facility] ([id number]) [address] [place] [address], [address] [place] [address] MCV (RBC) [Entitic vol] 85 fL Normal 80-100 [facility] Comment on above: Performed By: #### P INR, 40180-5, 07004-7, CBCA, 09136-4, CMP, 4548-4, 6873-4 #### [facility] ([id number]) [address] [place] [address] 74051 #### HA1C #### [facility] ([id number]) [address] [place] [address], [address] [place] [address] Monocytes (Bld) [#/Vol] 0.3 10*3/uL Normal 0-0.9 [facility] Comment on above: Performed By: #### P INR, 81184-8, 88317-6, CBCA, 77710-7, CMP, 4548-4, 6873-4 #### [facility] ([id number]) [address] [place] [address] 21091 #### HA1C #### [facility] ([id number]) [address], [address] [place] [address] Monocytes/100 WBC (Bld) 8.4 % Normal [facility] Comment on above: Performed By: #### P INR, 68654-6, 11151-6, CBCA, 98823-2, CMP, 4548-4, 6873-4 #### [facility] ([id number]) [address] [place] [address] 21334 #### HA1C #### [facility] ([id number]) [address] [facility], [address] [place] [address] Neutrophils/100 WBC (Bld) 51.0 % Normal [facility] Comment on above: Performed By: #### P INR, 63486-8, 94456-8, CBCA, 93305-0, CMP, 4548-4, 6873-4 #### [facility] ([id number]) [address] [place] [address] 52261 #### HA1C #### [facility] ([id number]) [address], [address] [place] [address] Platelet mean volume (Bld) [Entitic vol] 7.7 fL Normal 7-12 [facility] Comment on above: Performed By: #### P INR, 87283-3, 82909-7, CBCA, 18668-3, CMP, 4548-4, 6873-4 #### [facility] ([id number]) [address] [place] [address] 09586 #### HA1C #### [facility] ([id number]) [address], [address] [place] [address] Platelets (Bld) [#/Vol] 192 10*3/uL Normal 150-450 [facility] Comment on above: Performed By: #### P INR, 42499-7, 92945-5, CBCA, 21084-8, CMP, 4548-4, 6873-4 #### [facility] ([id number]) [address] [place] [address] 15732 #### HA1C #### [facility] ([id number]) [address] [facility], [address] [place] [address] RBC COUNT 5.08 X10E12/L Normal 4.10-5.70 [facility] Comment on above: Performed By: #### P INR, 37911-2, 35192-2, CBCA, 65289-5, CMP, 4548-4, 6873-4 #### [facility] ([id number]) [address] [place] [address] 77244 #### HA1C #### [facility] ([id number]) [address] [place] [address] WBC (Bld) [#/Vol] 3.6 10*3/uL Low 4.0-11.0 [facility] Comment on above: Performed By: #### P INR, 90349-0, 41394-4, CBCA, 84928-8, CMP, 4548-4, 6873-4 #### [facility] ([id number]) [address] [place] [address] 26532 #### HA1C #### [facility] ([id number]) [address] [facility], [address] [place] [address] COMPREHENSIVE METABOLIC PANE [place] 10-27-2023 Albumin [Mass/Vol] 4.0 g/dL Normal 3.2-5.3 [facility] Comment on above: Performed By: #### P INR, 48923-8, 69720-9, CBCA, 04738-1, CMP, 4548-4, 6873-4 #### [facility] ([id number]) [address] [place] [address] 06824 #### HA1C #### [facility] ([id number]) [address], [address] [place] [address] ALP [Catalytic activity/Vol] 65 U/L Normal 39-130 [facility] Comment on above: Performed By: #### P INR, 99701-2, 67646-9, CBCA, 39019-6, CMP, 4548-4, 6873-4 #### [facility] ([id number]) [address] [place] [address] 53032 #### HA1C #### [facility] ([id number]) [address] [facility], [address] [place] [address] ALT [Catalytic activity/Vol] 21 U/L Normal 0-40 [facility] Comment on above: Performed By: #### P INR, 79486-5, 93203-0, CBCA, 05689-0, CMP, 4548-4, 6873-4 #### [facility] ([id number]) [address] [place] [address] #### HA1C #### [facility] ([id number]) [address], [address] [place] [address] Anion gap [Moles/Vol] 4 mmol/L Low 5-15 [facility] Comment on above: Performed By: #### P INR, 60065-6, 85816-0, CBCA, 12245-9, CMP, 4548-4, 6873-4 #### [facility] ([id number]) [address] [place] [address] #### HA1C #### [facility] ([id number]) [address], [address] [place] [address] AST [Catalytic activity/Vol] 17 U/L Normal 0-41 [facility] Comment on above: Performed By: #### P INR, 38609-6, 87190-1, CBCA, 36968-8, CMP, 4548-4, 6873-4 #### [facility] ([id number]) [address] [place] [address] #### HA1C #### [facility] ([id number]) [address] [facility] [facility] [address] [facility], [address] [place] [address] Bilirubin [Mass/Vol] 1.1 mg/dL Normal 0.3-1.2 [facility] Comment on above: Performed By: #### P INR, 75629-6, 67672-6, CBCA, 10863-8, CMP, 4548-4, 6873-4 #### [facility] ([id number]) [address] [place] [address] #### HA1C #### [facility] ([id number]) [address] [place] [address], [address] [place] [address] Calcium [Mass/Vol] 8.3 mg/dL Low 8.5-10.5 [facility] Comment on above: Performed By: #### P INR, 71132-2, 58212-7, CBCA, 22606-0, CMP, 4548-4, 6873-4 #### [facility] ([id number]) [address] [place] [address] #### HA1C #### [facility] ([id number]) [address], [address] [place] [address] Chloride [Moles/Vol] 101 mmol/L Normal 98-109 [facility] Comment on above: Performed By: #### P INR, 28666-7, 56475-7, CBCA, 29803-9, CMP, 4548-4, 6873-4 #### [facility] ([id number]) [address] [place] [address] #### HA1C #### [facility] ([id number]) [address], [address] [place] [address] CO2 [Moles/Vol] 24 mmol/L Normal 22-32 [facility] Comment on above: Performed By: #### P INR, 05528-1, 47696-3, CBCA, 42245-3, CMP, 4548-4, 6873-4 #### [facility] ([id number]) [address] [place] [address] #### HA1C #### [facility] ([id number]) [address], [address] [place] [address] Creatinine [Mass/Vol] 0.75 mg/dL Normal 0.70-1.20 [facility] Comment on above: Result Comment: METH OD TRACEABLE TO IDMS STANDARD Performed By: #### P INR, 36143-6, 33591-5, CBCA, 32480-0, CMP, 4548-4, 6873-4 #### [facility] ([id number]) [address] [place] [address] #### HA1C #### [facility] ([id number]) [address], [address] [place] [address] eGFR (CKD-EPI) NON-RACE DEPENDENT >90 Normal >59 [facility] Comment on above: Result Comment: Reported eGFR is based on the CKD-EPI 2020 equation that does not use a race coefficient. Performed By: #### P INR, 00776-2, 84766-1, CBCA, 05978-0, CMP, 4548-4, 6873-4 #### [facility] ([id number]) [address] [place] [address] #### HA1C #### [facility] ([id number]) [address], [address] [place] [address] Glucose [Mass/Vol] 272 mg/dL High 65-99 [facility] Comment on above: Performed By: #### P INR, 41413-3, 12966-6, CBCA, 38023-1, CMP, 4548-4, 6873-4 #### [facility] ([id number]) [address] [place] [address] 164[address] #### HA1C #### [facility] [facility] ([id number]) [address] [facility], [address] [place] [address] Potassium [Moles/Vol] 4.1 mmol/L Normal 3.5-5.0 [facility] Comment on above: Performed By: #### P INR, 80097-0, 87284-2, CBCA, 75879-2, CMP, 4548-4, 6873-4 #### [facility] ([id number]) [address] [place] [address] 95657 #### HA1C #### [facility] ([id number]) [address] [facility], [address] [place] [address] Protein [Mass/Vol] 6.4 g/dL Normal 6.0-8.0 [facility] Comment on above: Performed By: #### P INR, 39419-0, 87577-5, CBCA, 94927-1, CMP, 4548-4, 6873-4 #### [facility] ([id number]) [address] [place] [address] 25747 #### HA1C #### [facility] ([id number]) [address] [facility], [address] [place] [address] Sodium [Moles/Vol] 129 mmol/L Low 134-146 [facility] Comment on above: Performed By: #### P INR, 27668-6, 54816-1, CBCA, 34139-4, CMP, 4548-4, 6873-4 #### [facility] ([id number]) [address] [place] [address] 98829 #### HA1C #### [facility] ([id number]) [address], [address] [place] [address] Urea nitrogen [Mass/Vol] 20 mg/dL Normal 5-27 [facility] Comment on above: Performed By: #### P INR, 97489-3, 68695-4, CBCA, 76621-8, CMP, 4548-4, 6873-4 #### [facility] ([id number]) [address] [place] [address] 98959 #### HA1C #### [facility] ([id number]) [address] [facility], [address] [place] [address] Glucose Glucometer (BldC) [M ass/Vol]on 10-27-2023 Glucose [Mass/Vol] 293 mg/dL High 65-99 [facility] Glucose [Mass/Vol] 311 mg/dL High 65-99 [facility] Glucose [Mass/Vol] 270 mg/dL High 65-99 [facility] Glucose [Mass/Vol] 280 mg/dL High 65-99 [facility] Glucose [Mass/Vol] 260 mg/dL High 65-99 [facility] MAGNESIUMon 10-27-2023 Magnesium [Mass/Vol] 2.2 mg/dL Normal 1.8-2.6 [facility] Comment on above: Performed By: #### P INR, 98526-2, 06955-5, CBCA, 99704-7, CMP, 4548-4, 6873-4 #### [facility] ([id number]) [address] [place] [address] 63437 #### HA1C #### [facility] ([id number]) [address], [address] [place] [address] Beta hydroxybutyrate [Moles/ Vol]on 10-26-2023 BetaHydroxybutyrate 1.69 mmol/L High 0.02-0.27 [facility] Comment on above: Performed By: #### P INR, 08093-0, 44916-7, CBCA, 43748-2, CMP, 4548-4, 6873-4 #### [facility] ([id number]) [address] [place] [address] 04794 #### HA1C #### [facility] ([id number]) [address] [facility], [address] [place] [address] CBC AND AUTO DIFFon 10-26-20 ABSOLUTE BASOPHIL 0.0 X10E9/L Normal 0.0-0.2 [facility] Comment on above: Performed By: #### P INR, 34833-9, 39300-3, CBCA, 34140-7, CMP, 4548-4, 6873-4 #### [facility] ([id number]) [address] [place] [address] 83119 #### HA1C #### [facility] ([id number]) [address] [facility], [address] [place] [address] ABSOLUTE NEUTROPHIL 2.5 X10E9/L Normal 1.5-6.6 [facility] Comment on above: Performed By: #### P INR, 28668-3, 74207-0, CBCA, 21467-1, CMP, 4548-4, 6873-4 #### [facility] ([id number]) [address] [place] [address] 35782 #### HA1C #### [facility] ([id number]) [address], [address] [place] [address] Basophils/100 WBC (Bld) 1.0 % Normal [facility] Comment on above: Performed By: #### P INR, 86640-8, 65303-0, CBCA, 18393-7, CMP, 4548-4, 6873-4 #### [facility] ([id number]) [address] [place] [address] 35615 #### HA1C #### [facility] ([id number]) [address], [address] [place] [address] Eosinophils (Bld) [#/Vol] 0.1 10*3/uL Normal 0.0-0.4 [facility] Comment on above: Performed By: #### P INR, 54178-4, 12708-7, CBCA, 23133-1, CMP, 4548-4, 6873-4 #### [facility] ([id number]) [address] [place] [address] 10519 #### HA1C #### [facility] ([id number]) [address] [facility], [address] [place] [address] Eosinophils/100 WBC (Bld) 1.2 % Normal [facility] Comment on above: Performed By: #### P INR, 66416-5, 12715-2, CBCA, 24723-2, CMP, 4548-4, 6873-4 #### [facility] ([id number]) [address] [place] [address] 56710 #### HA1C #### [facility] ([id number]) [address] [facility], [address] [place] [address] Erythrocyte distribution width (RBC) [Ratio] 13.4 % Normal 11.5-15.0 [facility] Comment on above: Performed By: #### P INR, 86309-1, 60315-7, CBCA, 77850-9, CMP, 4548-4, 6873-4 #### [facility] ([id number]) [address] [place] [address] 97925 #### HA1C #### [facility] ([id number]) [address], [address] [place] [address] Hematocrit (Bld) [Volume fraction] 46.5 % Normal 39-49 [facility] Comment on above: Performed By: #### P INR, 51620-2, 38300-8, CBCA, 68689-0, CMP, 4548-4, 6873-4 #### [facility] ([id number]) [address] [place] [address] 82260 #### HA1C #### [facility] ([id number]) [address], [address] [place] [address] Hemoglobin (Bld) [Mass/Vol] 16.0 g/dL Normal 13.0-17.0 [facility] Comment on above: Performed By: #### P INR, 62903-4, 25674-8, CBCA, 97277-7, CMP, 4548-4, 6873-4 #### [facility] ([id number]) [address] [place] [address] 18913 #### HA1C #### [facility] ([id number]) [address], [address] [place] [address] Lymphocytes (Bld) [#/Vol] 1.4 10*3/uL Normal 1.0-3.5 [facility] Comment on above: Performed By: #### P INR, 70316-1, 00385-9, CBCA, 14477-0, CMP, 4548-4, 6873-4 #### [facility] ([id number]) [address] [place] [address] 05424 #### HA1C #### [facility] ([id number]) [address], [address] [place] [address] Lymphocytes/100 WBC (Bld) 31.7 % Normal [facility] Comment on above: Performed By: #### P INR, 44534-6, 71664-9, CBCA, 51957-3, CMP, 4548-4, 6873-4 #### [facility] ([id number]) [address] [place] [address] 95631 #### HA1C #### [facility] ([id number]) [address], [address] [place] [address] MCH (RBC) [Entitic mass] 29.6 pg Normal 27-34 [facility] Comment on above: Performed By: #### P INR, 85420-4, 13712-4, CBCA, 02032-7, CMP, 4548-4, 6873-4 #### [facility] ([id number]) [address] [place] [address] 53300 #### HA1C #### [facility] ([id number]) [address], [address] [place] [address] MCHC (RBC) [Mass/Vol] 34.4 g/dL Normal 32-36 [facility] Comment on above: Performed By: #### P INR, 99364-4, 67637-5, CBCA, 74310-1, CMP, 4548-4, 6873-4 #### [facility] ([id number]) [address] [place] [address] 95541 #### HA1C #### [facility] ([id number]) [address], [address] [place] [address] MCV (RBC) [Entitic vol] 86 fL Normal 80-100 [facility] Comment on above: Performed By: #### P INR, 96017-2, 18636-0, CBCA, 22479-0, CMP, 4548-4, 6873-4 #### [facility] ([id number]) [address] [place] [address] 99520 #### HA1C #### [facility] ([id number]) [address], [address] [place] [address] Monocytes (Bld) [#/Vol] 0.3 10*3/uL Normal 0-0.9 [facility] Comment on above: Performed By: #### P INR, 98489-6, 03721-3, CBCA, 22585-3, CMP, 4548-4, 6873-4 #### [facility] ([id number]) [address] [place] [address] 85277 #### HA1C #### [facility] ([id number]) [address] [facility], [address] [place] [address] Monocytes/100 WBC (Bld) 7.3 % Normal [facility] Comment on above: Performed By: #### P INR, 76322-7, 33899-2, CBCA, 84326-7, CMP, 4548-4, 6873-4 #### [facility] ([id number]) [address] [place] [address] 23460 #### HA1C #### [facility] ([id number]) [address] [facility], [address] [place] [address] Neutrophils/100 WBC (Bld) 58.8 % Normal [facility] Comment on above: Performed By: #### P INR, 53322-7, 21888-9, CBCA, 21027-6, CMP, 4548-4, 6873-4 #### [facility] ([id number]) [address] [place] [address] 02182 #### HA1C #### [facility] ([id number]) [address] [facility], [address] [place] [address] Platelet mean volume (Bld) [Entitic vol] 8.0 fL Normal 7-12 [facility] Comment on above: Performed By: #### P INR, 08244-9, 71909-9, CBCA, 17668-9, CMP, 4548-4, 6873-4 #### [facility] ([id number]) [address] [place] [address] 93316 #### HA1C #### [facility] ([id number]) [address], [address] [place] [address] Platelets (Bld) [#/Vol] 219 10*3/uL Normal 150-450 [facility] Comment on above: Performed By: #### P INR, 55498-1, 33911-2, CBCA, 93463-8, CMP, 4548-4, 6873-4 #### [facility] ([id number]) [address] [place] [address] 54599 #### HA1C #### [facility] ([id number]) [address] [facility], [address] [place] [address] RBC COUNT 5.41 X10E12/L Normal 4.10-5.70 [facility] Comment on above: Performed By: #### P INR, 11123-3, 65838-3, CBCA, 08933-9, CMP, 4548-4, 6873-4 #### [facility] ([id number]) [address] [place] [address] 80192 #### HA1C #### [facility] ([id number]) [address], [address] [place] [address] WBC (Bld) [#/Vol] 4.3 10*3/uL Normal 4.0-11.0 [facility] Comment on above: Performed By: #### P INR, 41719-3, 39695-7, CBCA, 02312-2, CMP, 4548-4, 6873-4 #### [facility] ([id number]) [address] [place] [address] 34531 #### HA1C #### [facility] ([id number]) [address] [place] [address], [address] [place] [address] COMPREHENSIVE METABOLIC PANE [place] 10-26-2023 Albumin [Mass/Vol] 4.3 g/dL Normal 3.2-5.3 [facility] Comment on above: Performed By: #### P INR, 25270-0, 63510-5, CBCA, 58193-1, CMP, 4548-4, 6873-4 #### [facility] ([id number]) [address] [place] [address] 92979 #### HA1C #### [facility] ([id number]) [address] [place] [address], [address] [place] [address] ALP [Catalytic activity/Vol] 73 U/L Normal 39-130 [facility] Comment on above: Performed By: #### P INR, 17793-3, 63268-1, CBCA, 43347-2, CMP, 4548-4, 6873-4 #### [facility] ([id number]) [address] [place] [address] 01761 #### HA1C #### [facility] ([id number]) [address] [place] [address], [address] [place] [address] ALT [Catalytic activity/Vol] 25 U/L Normal 0-40 [facility] Comment on above: Performed By: #### P INR, 82814-0, 42559-3, CBCA, 43792-3, CMP, 4548-4, 6873-4 #### [facility] ([id number]) [address] [place] [address] 06407 #### HA1C #### [facility] ([id number]) [address] [place] [address], [address] [place] [address] Anion gap [Moles/Vol] 10 mmol/L Normal 5-15 [facility] Comment on above: Performed By: #### P INR, 62281-1, 01454-9, CBCA, 68753-0, CMP, 4548-4, 6873-4 #### [facility] ([id number]) [address] [place] [address] 52469 #### HA1C #### [facility] ([id number]) [address], [address] [place] [address] AST [Catalytic activity/Vol] 19 U/L Normal 0-41 [facility] Comment on above: Performed By: #### P INR, 36780-3, 55076-2, CBCA, 56265-6, CMP, 4548-4, 6873-4 #### [facility] ([id number]) [address] [place] [address] 98916 #### HA1C #### [facility] ([id number]) [address], [address] [place] [address] Bilirubin [Mass/Vol] 0.8 mg/dL Normal 0.3-1.2 [facility] Comment on above: Performed By: #### P INR, 74329-5, 65614-0, CBCA, 30366-4, CMP, 4548-4, 6873-4 #### [facility] ([id number]) [address] [place] [address] 98121 #### HA1C #### [facility] ([id number]) [address], [address] [place] [address] Calcium [Mass/Vol] 9.3 mg/dL Normal 8.5-10.5 [facility] Comment on above: Performed By: #### P INR, 42283-7, 88316-7, CBCA, 52981-9, CMP, 4548-4, 6873-4 #### [facility] ([id number]) [address] [place] [address] 58639 #### HA1C #### [facility] ([id number]) [address], [address] [place] [address] Chloride [Moles/Vol] 94 mmol/L Low 98-109 [facility] Comment on above: Performed By: #### P INR, 86882-5, 08681-0, CBCA, 73869-8, CMP, 4548-4, 6873-4 #### [facility] ([id number]) [address] [place] [address] 64690 #### HA1C #### [facility] ([id number]) [address], [address] [place] [address] CO2 [Moles/Vol] 26 mmol/L Normal 22-32 [facility] Comment on above: Performed By: #### P INR, 67657-8, 34401-5, CBCA, 06428-5, CMP, 4548-4, 6873-4 #### [facility] ([id number]) [address] [place] [address] 51756 #### HA1C #### [facility] ([id number]) [address], [address] [place] [address] Creatinine [Mass/Vol] 1.06 mg/dL Normal 0.70-1.20 [facility] Comment on above: Result Comment: METH OD TRACEABLE TO IDMS STANDARD Performed By: #### P INR, 59254-1, 32731-2, CBCA, 29557-9, CMP, 4548-4, 6873-4 #### [facility] ([id number]) [address] [place] [address] 12397 #### HA1C #### [facility] ([id number]) [address], [address] [place] [address] GFR/1.73 sq M.predicted among non-blacks MDRD (S/P/Bld) [Vol rate/Area] 75 mL/min/{1.73_m2} Normal >59 [facility] Comment on above: Result Comment: Reported eGFR is based on the CKD-EPI 2020 equation that does not use a race coefficient. Performed By: #### P INR, 99829-8, 06749-8, CBCA, 43422-5, CMP, 4548-4, 6873-4 #### [facility] ([id number]) [address] [place] [address] 80350 #### HA1C #### [facility] ([id number]) [address], [address] [place] [address] Glucose [Mass/Vol] 453 mg/dL Critically high 65-99 [facility] Comment on above: Performed By: #### P INR, 14207-2, 71254-5, CBCA, 83004-3, CMP, 4548-4, 6873-4 #### [facility] ([id number]) [address] [place] [address] 53586 #### HA1C #### [facility] ([id number]) [address], [address] [place] [address] Potassium [Moles/Vol] 4.5 mmol/L Normal 3.5-5.0 [facility] Comment on above: Performed By: #### P INR, 90493-2, 18742-3, CBCA, 91839-8, CMP, 4548-4, 6873-4 #### [facility] ([id number]) [address] [place] [address] 80879 #### HA1C #### [facility] ([id number]) [address], [address] [place] [address] Protein [Mass/Vol] 7.2 g/dL Normal 6.0-8.0 [facility] Comment on above: Performed By: #### P INR, 11375-4, 40559-3, CBCA, 21478-6, CMP, 4548-4, 6873-4 #### [facility] ([id number]) [address] [place] [address] #### HA1C #### [facility] ([id number]) [address], [address] [place] [address] Sodium [Moles/Vol] 130 mmol/L Low 134-146 [facility] Comment on above: Performed By: #### P INR, 34736-3, 28960-2, CBCA, 15033-7, CMP, 4548-4, 6873-4 #### [facility] ([id number]) [address] [place] [address] 92478 #### HA1C #### [facility] ([id number]) [address] [facility], [address] [place] [address] Urea nitrogen [Mass/Vol] 29 mg/dL High 5-27 [facility] Comment on above: Performed By: #### P INR, 45832-9, 16508-8, CBCA, 37669-7, CMP, 4548-4, 6873-4 #### [facility] ([id number]) [address] [place] [address] 01524 #### HA1C #### [facility] ([id number]) [address], [address] [place] [address] CT BRAIN WO CONTon 3 CT BRAIN [...] Denney MD on 10/26/2023 6:42 PM Normal [facility] DRUG SCREEN, URINEon 023 AMPHETAMINE/METHAMP Negative Normal NEG [facility] Comment on above: Result Comment: AMPH /METH screening cut off = 1000 ng/mL Performed By: #### P INR, 37303-2, 77667-3, CBCA, 18138-9, CMP, 4548-4, 6873-4 #### [facility] ([id number]) [address] [place] [address] 01565 #### HA1C #### [facility] ([id number]) [address] [place] [address], [address] [place] [address] BARBITURATES Negative Normal NEG [facility] Comment on above: Result Comment: Elsie iturates screening cut off value = 200 ng/mL Performed By: #### P INR, 69905-4, 39694-7, CBCA, 86382-2, CMP, 4548-4, 6873-4 #### [facility] ([id number]) [address] [place] [address] 12913 #### HA1C #### [facility] ([id number]) [address] [facility], [address] [place] [address] BENZODIAZEPINES Negative Normal NEG [facility] Comment on above: Result Comment: James odiazepines screening cut off value = 200 ng/mL Performed By: #### P INR, 16587-6, 32465-7, CBCA, 45732-4, CMP, 4548-4, 6873-4 #### [facility] ([id number]) [address] [place] [address] 86508 #### HA1C #### [facility] ([id number]) [address], [address] [place] [address] CANNABINOIDS Negative Normal NEG [facility] Comment on above: Result Comment: Shawn abinoids/THC screening cut off value = 50 ng/mL Performed By: #### P INR, 42979-3, 93302-9, CBCA, 34786-3, CMP, 4548-4, 6873-4 #### [facility] ([id number]) [address] [place] [address] 44613 #### HA1C #### [facility] ([id number]) [address], [address] [place] [address] COCAINE METABOLITE Negative Normal NEG [facility] Comment on above: Result Comment: Coca ine screening cut off value = 300 ng/mL Performed By: #### P INR, 13948-8, 87344-0, CBCA, 79311-7, CMP, 4548-4, 6873-4 #### [facility] ([id number]) [address] [place] [address] 22295 #### HA1C #### [facility] ([id number]) [address], [address] [place] [address] ECSTASY Negative Normal NEG [facility] Comment on above: Result Comment: Ecst asy screening cut off value = 500 ng/mL This report is intended for use in clinical monitoring or management of patients. Performed By: #### P INR, 62860-9, 51714-3, CBCA, 09626-2, CMP, 4548-4, 6873-4 #### [facility] ([id number]) [address] [place] [address] 32092 #### HA1C #### [facility] ([id number]) [address] [place] [address], [address] [place] [address] METHADONE Negative Normal NEG [facility] Comment on above: Result Comment: Meth adone screening cut off value = 300 ng/mL. Performed By: #### P INR, 08485-7, 45514-8, CBCA, 79691-1, CMP, 4548-4, 6873-4 #### [facility] ([id number]) [address] [place] [address] 53144 #### HA1C #### [facility] ([id number]) [address] [place] [address], [address] [place] [address] OPIATES Negative Normal NEG [facility] Comment on above: Result Comment: Opia yanira screening cut off value = 300 ng/mL NOTE: This test is used for the detection of codeine, hydrocodone (>1000 ng/mL), morphine and hydromorphone (>900 ng/mL) in urine. Performed By: #### P INR, 00701-1, 53333-2, CBCA, 56067-3, CMP, 4548-4, 6873-4 #### [facility] ([id number]) [address] [place] [address] 08790 #### HA1C #### [facility] ([id number]) [address] [place] [address], [address] [place] [address] OXYCODONE Negative Normal NEG [facility] Comment on above: Result Comment: Oxyc odone screening cut off value = 300 ng/mL NOTE: This test is used for the detection of oxycodone and oxymorphone in urine. Performed By: #### P INR, 38291-6, 83524-4, CBCA, 64802-4, CMP, 4548-4, 6873-4 #### [facility] ([id number]) [address] [place] [address] 09617 #### HA1C #### [facility] ([id number]) [address], [address] [place] [address] PHENCYCLIDINE Negative Normal NEG [facility] Comment on above: Result Comment: Phen cyclidine screening cut off value = 25 ng/mL Performed By: #### P INR, 42226-0, 97322-1, CBCA, 47425-8, CMP, 4548-4, 6873-4 #### [facility] ([id number]) [address] [place] [address] #### HA1C #### [facility] ([id number]) [address] [place] [address] Glucose Glucometer (BldC) [M ass/Vol]on 10-26-2023 Glucose [Mass/Vol] 286 mg/dL High 65-99 [facility] Glucose [Mass/Vol] 385 mg/dL High 65-99 [facility] HA1C CONFIRMATION - NO CHARG Ian 10-26-2023 HbA1c (Bld) [Mass fraction] 15.3 % High <=5.6 [facility] Comment on above: Result Comment: NOTE INTERPRETIVE INFORMATION: Hemoglobin A1c HbA1c values of 5.7-6.4 percent indicate an increased risk for developing diabetes mellitus. HbA1c values greater than or equal to 6.5 percent are diagnostic of diabetes mellitus. For diagnosis of diabetes in individuals without unequivocal hyperglycemia, results should be confirmed by repeat testing. Performed By: #### P INR, 79902-7, 29004-0, CBCA, 74543-3, CMP, 4548-4, 6873-4 #### [facility] ([id number]) [address] [place] [address] #### HA1C #### [facility] ([id number]) [address], [address] [place] [address] HGB A1C (GLYCO-HGB)on 2022 AVERAGE GLUCOSE >398 Normal [facility] Comment on above: Performed By: #### P INR, 11059-5, 91396-2, CBCA, 78012-9, CMP, 4548-4, 6873-4 #### [facility] ([id number]) [address] [place] [address] #### HA1C #### [facility] ([id number]) [address], [address] [place] [address] HbA1c (Bld) [Mass fraction] % High 4.4-5.6 [facility] Comment on above: Result Comment: NOTE ADA Guidelines Result HgbA1c Normal : less than 5.7 % Prediabetes : 5.7 % to 6.4 % Diabetes : > 6.4 % Use with caution in patients with abnormal hemoglobin variants as the half-life of red blood cells and in vivo glycation rates are affected. Performed By: #### P INR, 21361-5, 34253-2, CBCA, 15683-6, CMP, 4548-4, 6873-4 #### [facility] ([id number]) [address] [place] [address] #### HA1C #### [facility] ([id number]) [address], [address] [place] [address] HbA1c (Bld) [Mass fraction]o n 10-26-2023 Glucose [Mass/Vol] 392 mg/dL Normal [facility] Comment on above: Result Comment: NOTE Performed By: [facility] [address] [place] [address] Language Interpreter: Aramis Taylor MD, PhD CLIA Number: [id number] Performed By: #### P INR, 03708-5, 53411-8, CBCA, 10167-9, CMP, 4548-4, 6873-4 #### [facility] ([id number]) [address] [place] [address] #### HA1C #### [facility] ([id number]) [address], [address] [place] [address] MAGNESIUMon 10-26-2023 Magnesium [Mass/Vol] 1.6 mg/dL Low 1.8-2.6 [facility] Comment on above: Performed By: #### P INR, 27994-3, 85476-4, CBCA, 95000-6, CMP, 4548-4, 6873-4 #### [facility] ([id number]) [address] [place] [address] #### HA1C #### [facility] ([id number]) [address] [place] [address] PROTIME AND INRon 10-26-2023 INR Coag (PPP) [Relative time] 1.0 {INR} Normal 0.8-1.1 [facility] Comment on above: Performed By: #### P INR, 19583-5, 31189-4, CBCA, 08234-1, CMP, 4548-4, 6873-4 #### [facility] ([id number]) [address] [place] [address] #### HA1C #### [facility] ([id number]) [address], [address] [place] [address] PT Coag (PPP) [Time] 11.4 s Normal 9.8-13.2 [facility] Comment on above: Result Comment: NEW REFERENCE RANGE Performed By: #### P INR, 17304-3, 58026-7, CBCA, 43442-4, CMP, 4548-4, 6873-4 #### [facility] ([id number]) [address] [place] [address]26 #### HA1C #### [facility] ([id number]) [address], [address] [place] [address] TROPONIN Ion 10-26-2023 Troponin I.cardiac [Mass/Vol] 0.01 ng/mL Normal 0.00-0.04 [facility] Comment on above: Performed By: #### P INR, 28809-0, 14356-1, CBCA, 17810-3, CMP, 4548-4, 6873-4 #### [facility] ([id number]) [address] [place] [address] 12971 #### HA1C #### [facility] ([id number]) [address] [place] [address], [address] [place] [address] URN MACROSCOPIC NURon 2022 BILIRUBIN ALLYN Negative Normal NEG [facility] Comment on above: Performed By: #### P INR, 17223-0, 39633-7, CBCA, 60690-8, CMP, 4548-4, 6873-4 #### [facility] ([id number]) [address] [place] [address] #### HA1C #### [facility] ([id number]) [address] [place] [address], [address] [place] [address] BLOOD/HGB ALLYN Trace Abnormal NEG [facility] Comment on above: Performed By: #### P INR, 71080-5, 73787-7, CBCA, 62000-8, CMP, 4548-4, 6873-4 #### [facility] ([id number]) [address] [place] [address] #### HA1C #### [facility] ([id number]) [address] [place] [address], [address] [place] [address] GLUCOSE ALLYN >=1000 Abnormal NEG [facility] Comment on above: Performed By: #### P INR, 54213-9, 42454-9, CBCA, 63403-0, CMP, 4548-4, 6873-4 #### [facility] ([id number]) [address] [place] [address] #### HA1C #### [facility] ([id number]) [address], [address] [place] [address] KETONES ALLYN 40 mg/dL Abnormal NEG [facility] Comment on above: Performed By: #### P INR, 60015-9, 85982-8, CBCA, 13199-1, CMP, 4548-4, 6873-4 #### [facility] ([id number]) [address] [place] [address] #### HA1C #### [facility] ([id number]) [address], [address] [place] [address] LEUKOCYTE ESTERASE ALLYN Negative Normal NEG [facility] Comment on above: Performed By: #### P INR, 45410-0, 92104-7, CBCA, 78957-9, CMP, 4548-4, 6873-4 #### [facility] ([id number]) [address] [place] [address] #### HA1C #### [facility] ([id number]) [address] [place] [address], [address] [place] [address] NITRITE ALLYN Negative Normal NEG [facility] Comment on above: Performed By: #### P INR, 04467-0, 17295-8, CBCA, 50158-6, CMP, 4548-4, 6873-4 #### [facility] ([id number]) [address] [place] [address] #### HA1C #### [facility] ([id number]) [address] [place] [address], [address] [place] [address] PH ALLYN 5.5 Normal 5.0-8.5 [facility] Comment on above: Performed By: #### P INR, 52617-1, 55445-7, CBCA, 22194-1, CMP, 4548-4, 6873-4 #### [facility] ([id number]) [address] [place] [address] #### HA1C #### [facility] ([id number]) [address], [address] [place] [address] PROTEIN ALLYN Negative Normal NEG [facility] Comment on above: Performed By: #### P INR, 40770-4, 52376-3, CBCA, 92388-5, CMP, 4548-4, 6873-4 #### [facility] ([id number]) [address] [place] [address] #### HA1C #### [facility] ([id number]) [address], [address] [place] [address] SPECIFIC GRAVITY ALLYN 1.010 Normal 1.003-1 .03 5 [facility] Comment on above: Performed By: #### P INR, 55344-1, 08669-8, CBCA, 07016-6, CMP, 4548-4, 6873-4 #### [facility] ([id number]) [address] [place] [address] #### HA1C #### [facility] ([id number]) [address], [address] [place] [address] UROBILINOGEN ALLYN 0.2 eu/dL Normal <1.1 [facility] Comment on above: Performed By: #### P INR, 55529-7, 78947-2, CBCA, 46271-9, CMP, 4548-4, 6873-4 #### [facility] ([id number]) [address] [place] [address] #### HA1C #### [facility] ([id number]) [address], [address] [place] [address] VENOUS BLOOD GASon 3 MICHELLE'S TEST Normal [facility] Comment on above: Performed By: #### V BG #### [facility] ([id number]) [address] [place] [address] Base excess Calc (Bld) [Moles/Vol] 0.0 mmol/L Normal 0.0-2.0 [facility] Comment on above: Performed By: #### V BG #### [facility] ([id number]) [address] [place] [address] [place] [address] Body temperature 98.6 [degF] Normal 37.0 [facility] Comment on above: Performed By: #### V BG #### [facility] ([id number]) [address] [place] [address] HCO3 (Bld) [Moles/Vol] 25.3 mmol/L High 20.0-24.0 [facility] Comment on above: Performed By: #### V BG #### [facility] ([id number]) [address] [place] [address] [place] [address] Oxygen saturation in Blood 73.0 % Low >80.0 [facility] Comment on above: Performed By: #### V BG #### [facility] ([id number]) [address] [place] [address] [place] [address] OXYGEN SOURCE [employer] Normal [facility] Comment on above: Performed By: #### V BG #### [facility] ([id number]) [address] [place] [address] [place] [address] PCO2, VENOUS 41.3 MMHG Normal 35-50 [facility] Comment on above: Performed By: #### V BG #### [facility] ([id number]) [address] [place] [address] [place] [address] PH, VENOUS 7.396 Normal 7.320-7.42 0 [facility] Comment on above: Performed By: #### V BG #### [facility] ([id number]) [address] [place] [address] PO2, VENOUS 39 MMHG Normal 30-50 [facility] Comment on above: Performed By: #### V BG #### [facility] ([id number]) [address] [place] [address] SAMPLE SITE N/A Normal [facility] Comment on above: Performed By: #### V BG #### [facility] ([id number]) [address] [place] [address] SAMPLE TYPE VENOUS Normal [facility] Comment on above: Performed By: #### V BG #### [facility] ([id number]) [address] [place] [address]67 XR CHEST 1 VWon 10-26-2023 XR CHEST [...] Keyes MD on 10/26/2023 6:36 PM Normal [facility] aPTT Coag (PPP) [Time]on aPTT Coag (Bld) [Time] 34 s Normal 26-[address] [facility] Comment on above: Result Comment: NEW REFERENCE RANGE Performed By: #### P INR, 37819-6, 87625-5, CBCA, 32173-6, CMP, 4548-4, 6873-4 #### [facility] ([id number]) [address] [place] [address] 40331 #### HA1C #### [facility] ([id number]) [address], [address] [place] [address] Vital Signs Date Time Vital Sign Value Performing Clinician Facility 12-28-2024 08:28-0500 Body height 177.8 cm Mri (Istat/1.5t) Work Phone: [facility] 12-28-2024 08:28-0500 Body mass index (BMI) [Ratio] 27.26 kg/m2 Mri (Istat/1.5t) Work Phone: [facility] 12-28-2024 08:28-0500 Body weight 86.18 kg Mri (Istat/1.5t) Work Phone: [facility] 11-02-2024 09:30-0500 Diastolic blood pressure 52 mm[Hg] Sarah Villareal MD Work Phone: [facility] 11-02-2024 09:30-0500 Heart rate 61 /min Sarah Villareal MD Work Phone: [facility] 11-02-2024 09:30-0500 Systolic blood pressure 88 mm[Hg] Sarah Villareal MD Work Phone: [facility] 10-25-2024 11:19-0500 Blood Pressure Location JAROCHO BHAKTA-AMFORD [facility] 10-25-2024 11:19-0500 Diastolic blood pressure 70 mm[Hg] JAROCHO NKANSAH-AMANKRA [facility] 10-25-2024 11:19-0500 Heart rate 72 /min JAROCHOMARCEL CAAH-AMANKRA [facility] 10-25-2024 11:19-0500 Systolic blood pressure 123 mm[Hg] JAROCHO NKANSAH-AMANKRA [facility] 10-12-2024 15:50-0500 Body temperature 97.5 [degF] Eleazar Ball DO Work Phone: [facility] 10-12-2024 15:50-0500 Diastolic blood pressure 68 mm[Hg] Eleazar Ball DO Work Phone: [facility] 10-12-2024 15:50-0500 Heart rate 61 /min Eleazar Ball DO Work Phone: [facility] 10-12-2024 15:50-0500 Respiratory rate 16 /min Eleazar Ball DO Work Phone: [facility] 10-12-2024 15:50-0500 SaO2% (BldA) [Mass fraction] 97 % Eleazar Ball DO Work Phone: [facility] 10-12-2024 15:50-0500 Systolic blood pressure 128 mm[Hg] Eleazar Ball DO Work Phone: [facility] 10-12-2024 06:00-0500 Body weight 91.4 kg Eleazar Ball DO Work Phone: [facility] 10-08-2024 15:31-0500 Inhaled oxygen flow rate 6 L/min Eleazar Ball DO Work Phone: [facility] 10-07-2024 14:18-0500 Body height 177.8 cm Eleazar Ball DO Work Phone: [facility] 10-06-2024 00:00-0500 Body temperature 98.6 [degF] Gricelda Perea MD Work Phone: [facility] 10-06-2024 00:00-0500 Diastolic blood pressure 63 mm[Hg] Gricelda Perea MD Work Phone: [facility] 10-06-2024 00:00-0500 Heart rate 70 /min Gricelda Perea MD Work Phone: [facility] 10-06-2024 00:00-0500 Respiratory rate 18 /min Gricelda Perea MD Work Phone: [facility] 10-06-2024 00:00-0500 SaO2% (BldA) [Mass fraction] 94 % Gricelda Perea MD Work Phone: [facility] 10-06-2024 00:00-0500 Systolic blood pressure 117 mm[Hg] Gricelda Perea MD Work Phone: [facility] 10-05-2024 06:00-0500 Body mass index (BMI) [Ratio] 26.19 kg/m2 Gricelda Perea MD Work Phone: [facility] 10-05-2024 06:00-0500 Body weight 82.8 kg Gricelda Perea MD Work Phone: [facility] 10-02-2024 05:24-0500 Body height 177.8 cm Gricelda Perea MD Work Phone: [facility] 04-10-2024 15:38-0400 Diastolic blood pressure 59 mm[Hg] Emilia Hidalgo MD Work Phone: [facility] 04-10-2024 15:38-0400 Heart rate 85 /min Emilia Hidalgo MD Work Phone: [facility] 04-10-2024 15:38-0400 SaO2% (BldA) [Mass fraction] 97 % Emilia Hidalgo MD Work Phone: [facility] 04-10-2024 15:38-0400 Systolic blood pressure 147 mm[Hg] Emilia Hidalgo MD Work Phone: [facility] 04-10-2024 15:37-0400 Body temperature 97.7 [degF] Emilia Hidalgo MD Work Phone: [facility] 04-10-2024 15:37-0400 Respiratory rate 16 /min Emilia Hidalgo MD Work Phone: [facility] 04-10-2024 03:43-0400 Body mass index (BMI) [Ratio] 33.69 kg/m2 Emilia Hidalgo MD Work Phone: [facility] 04-10-2024 03:43-0400 Body weight 106.5 kg Emilia Hidalgo MD Work Phone: [facility] 04-09-2024 14:14-0400 Body height 177.8 cm Emilia Hidalgo MD Work Phone: [facility] 03-31-2024 10:20-0400 Body height 180.34 cm [facility] 03-31-2024 10:20-0400 Body mass index (BMI) [Ratio] 34.9 kg/m2 [facility] 03-31-2024 10:20-0400 Body weight 113.53 kg [facility] 03-31-2024 10:20-0400 Diastolic blood pressure 73 mm[Hg] [facility] 03-31-2024 10:20-0400 Heart rate 79 /min [facility] 03-31-2024 10:20-0400 Respiratory rate 16 /min [facility] 03-31-2024 10:20-0400 Systolic blood pressure 149 mm[Hg] [facility] 03-26-2024 10:56-0400 Body height 180.34 cm [facility] 03-26-2024 10:56-0400 Body mass index (BMI) [Ratio] 34.9 kg/m2 [facility] 03-26-2024 10:56-0400 Body weight 113.62 kg [facility] 03-26-2024 10:56-0400 Diastolic blood pressure 81 mm[Hg] [facility] 03-26-2024 10:56-0400 Heart rate 86 /min [facility] 03-26-2024 10:56-0400 Respiratory rate 20 /min [facility] 03-26-2024 10:56-0400 Systolic blood pressure 157 mm[Hg] [facility] 02-12-2024 09:15-0400 Body height 177.8 cm Klaus Yeboah MD Work Phone: [facility] 02-12-2024 09:15-0400 Body mass index (BMI) [Ratio] 35.01 kg/m2 Klaus Yeboah MD Work Phone: [facility] 02-12-2024 09:15-0400 Body weight 110.68 kg Klaus Yeboah MD Work Phone: [facility] 01-23-2024 10:33-0400 Body height 180.34 cm [facility] 01-23-2024 10:33-0400 Body mass index (BMI) [Ratio] 36.1 kg/m2 [facility] 01-23-2024 10:33-0400 Body weight 117.65 kg [facility] 01-23-2024 10:33-0400 Diastolic blood pressure 69 mm[Hg] [facility] 01-23-2024 10:33-0400 Heart rate 71 /min [facility] 01-23-2024 10:33-0400 Respiratory rate 20 /min [facility] 01-23-2024 10:33-0400 Systolic blood pressure 159 mm[Hg] [facility] 12-30-2023 10:35-0500 Body height 177.8 cm Klaus Yeboah MD Work Phone: [facility] 12-30-2023 10:35-0500 Body mass index (BMI) [Ratio] 35.01 kg/m2 Klaus Yeboah MD Work Phone: [facility] 12-30-2023 10:35-0500 Body weight 110.68 kg Klaus Yeboah MD Work Phone: [facility] 12-11-2023 11:41-0500 Body height 177.8 cm Nae Rojas MD Work Phone: [facility] 12-11-2023 11:41-0500 Body mass index (BMI) [Ratio] 35.01 kg/m2 Nae Rojas MD Work Phone: [facility] [employer] 12-11-2023 11:41-0500 Body weight 110.68 kg [facility] 12-11-2023 11:41-0500 Diastolic blood pressure 73 mm[Hg] Nae Rojas MD Work Phone: [facility] [employer] 12-11-2023 11:41-0500 Heart rate 90 /min Nae Rojas MD Work Phone: [facility] [employer] 12-11-2023 11:41-0500 Systolic blood pressure 126 mm[Hg] Nae Rojas MD Work Phone: [facility] [employer] 11-26-2023 10:45-0500 Body height 180.34 cm Eleazar Ball Other [facility] 11-26-2023 10:45-0500 Body mass index (BMI) [Ratio] 35.31 kg/m2 Eleazar Ball Other [facility] [employer] Other 11-26-2023 10:45-0500 Body weight 114.85 kg Eleazar Ball Other [facility] [employer] Other 11-26-2023 10:45-0500 Body weight 114.84 kg [facility] 11-26-2023 10:45-0500 Diastolic blood pressure 80 mm[Hg] Eleazar Ball Other [facility] 11-26-2023 10:45-0500 Respiratory rate 16 /min Eleazar Ball Other [facility] [employer] Other 11-26-2023 10:45-0500 Systolic blood pressure 132 mm[Hg] Eleazar Ball Other [facility] Encounters Encounter Date Encounter Type Care Provider Facility Start: 10-07-2025 ambulatory MD JAROCHO POST Facility:[facility] Start: 05-09-2025 End: 05-09-2025 ambulatory MD JAROCHO POST Facility:[facility] Start: 05-09-2025 End: 05-09-2025 Patient encounter procedure JAROCHO POST [facility] Start: 04-25-2025 End: 04-28-2025 Evaluation and management of inpatient Dionte COKER Facility:[facility] Start: 04-24-2025 Emergency department patient visit Isai BarryMann Mehta Facility:[facility] Start: 04-24-2025 End: 04-28-2025 Evaluation and management of inpatient Dionte COKER [facility] Start: 04-15-2025 End: 04-15-2025 ambulatory MD JAROCHO POST Facility: [place] Start: 04-15-2025 End: 04-15-2025 Patient encounter procedure JAROCHO POST [facility] E[facility]en Start: 01-21-2025 End: 01-21-2025 ambulatory [facility] Start: 01-07-2025 End: 01-07-2025 ambulatory MD JAROCHO POST Facility:[facility] Start: 12-28-2024 ambulatory Facility:[facility] Start: 12-28-2024 End: 12-28-2024 Subsequent hospital visit by physician [facility] (Istat/1.5t) Work Phone: [facility] Start: 12-08-2024 End: 12-08-2024 ambulatory [facility] Start: 11-08-2024 End: 11-08-2024 ambulatory MD JAROCHO POST Facility:[facility] Start: 11-08-2024 End: 11-08-2024 Patient encounter procedure JAROCHO POST [facility] Start: 11-02-2024 End: 11-02-2024 Office outpatient new 30 minutes Suellen Cooper MD PhD Work Phone: [facility] 2 Comment on above: Gallbladder polyp Start: 11-02-2024 End: 11-02-2024 Office outpatient new 45 minutes Sarah Villareal MD Work Phone: [facility] 2 Comment on above: Constipation, unspec ified constipation type (Primary Dx); Gallbladder polyp; Cerebrovascular accident (CVA), unspecified mechanism (Multi) Start: 11-02-2024 End: 11-02-2024 ambulatory SUELLEN COOPER [facility] Start: 10-28-2024 End: 10-28-2024 ambulatory Eleazar Ball DO Work Phone: [facility] Work Phone: Start: 10-28-2024 End: 10-28-2024 Departed Referred Eleazar Ball DO Work Phone: [facility] Start: 10-28-2024 Non-patient / Non-visit Benjam in Ball DO Work Phone[facility] Work Phone: Start: 10-28-2024 End: 10-28-2024 ambulatory MD JAROCHO POST Facility:CD:[id number] Start: 10-25-2024 End: 10-25-2024 ambulatory MD JAROCHO POST Facility:[facility] Start: 10-25-2024 End: 10-25-2024 Patient encounter procedure JAROCHO POST [facility] Start: 10-19-2024 Non-patient / Non-visit Benjam in Ball DO Work Phone: [facility] Work Phone: Start: 10-12-2024 ambulatory MD JAROCHO POST Facility:[facility] Start: 10-12-2024 End: 10-12-2024 ambulatory Addy PORTILLO Facility:CD:[id number] Start: 10-09-2024 Non-patient / Non-visit Benjam in Ball DO Work Phone: [facility] Work Phone: Start: 10-08-2024 End: 10-11-2024 External Result Encounter Gerard Platt DO Work Phone: [facility] External Department Unsolicited Start: 10-08-2024 End: 10-11-2024 External Result Encounter Gerard Platt DO Work Phone: [facility] External Department Unsolicited Start: 10-08-2024 Non-patient / Non-visit Benjam in Ball DO Work Phone: [facility] Work Phone: Start: 10-08-2024 End: 10-10-2024 ambulatory Dionte Marina Hernandezwin Facility:CD:[id number] Start: 10-06-2024 End: 10-12-2024 Evaluation and management of inpatient Eleazar Ball DO Work Phone: [facility] Work Phone: Start: 10-02-2024 End: 10-06-2024 Evaluation and management of inpatient Gricelda Perea MD Work Phone: [address] Comment on above: Hematuria (Primary D x); Chronic indwelling Cyr catheter; Tobacco use Start: 10-01-2024 Non-patient / Non-visit Benjam in Ball DO Work Phone: [facility] Work Phone: Start: 10-01-2024 End: 10-01-2024 Telephone [facility] Comment on above: Blood in Urine Urinary Retention; B lood in Urine Start: 09-30-2024 Non-patient / Non-visit Benjam in Ball DO Work Phone: [facility] Work Phone: Start: 09-29-2024 Non-patient / Non-visit Benjam in Ball DO Work Phone: [facility] Work Phone: Start: 09-09-2024 End: 09-09-2024 ambulatory [facility] Start: 08-19-2024 Non-patient / Non-visit Benjam in Ball DO Work Phone: [facility] Work Phone: Start: 06-15-2024 ambulatory [facility] Start: 06-05-2024 ambulatory [facility] Start: 06-05-2024 [facility] Start: 06-05-2024 End: 06-11-2024 Evaluation and management of inpatient [facility] Start: 06-05-2024 End: 06-12-2024 Emergency department patient visit PATRIA SOLOMON [facility] Start: 05-27-2024 End: 06-01-2024 Evaluation and management of inpatient [facility] Start: 05-27-2024 End: 06-03-2024 Telephone encounter Nae Rojas MD Work Phone: [facility] Start: 05-13-2024 End: 05-13-2024 ambulatory [facility] Start: 05-12-2024 End: 05-13-2024 Emergency department patient visit BROOK SIMMS [facility] Start: 04-13-2024 End: 04-13-2024 ambulatory ELEAZAR E [facility] Start: 04-10-2024 End: 04-21-2024 Evaluation and management of inpatient RAJESHCATIE RICE [facility] Start: 04-09-2024 End: 04-11-2024 Emergency department patient visit YUDELKA Wilmar MCMULLEN [facility] Start: 04-09-2024 End: 04-10-2024 ambulatory [facility] Start: 04-09-2024 End: 04-10-2024 Emergency department patient visit Yudelka Mcmullen DO Work Phone: [facility] Comment on above: Stroke-like symptoms (Primary Dx); DAISY (acute kidney injury) ([facility]); Anemia, unspecified type; Elevated troponin Start: 03-31-2024 End: 03-31-2024 ambulatory [facility] Work Phone: Start: 03-31-2024 End: 03-31-2024 Patient encounter procedure [facility] Work Phone: Start: 03-29-2024 End: 04-26-2024 ambulatory [facility] Start: 03-26-2024 End: 03-26-2024 [facility] Work Phone: Start: 03-26-2024 End: 03-26-2024 Patient encounter procedure [facility] Work Phone: Start: 03-17-2024 End: 03-17-2024 Refill Nanci REYNA Work Phone: [facility] Comment on above: Arthritis of right k nee Start: 02-13-2024 End: 03-27-2024 ambulatory KLAUS Lopez [facility] Start: 02-12-2024 End: 02-12-2024 Patient encounter procedure Klaus Yeboah MD Work Phone: [facility] Comment on above: Right knee pain, uns pecified chronicity; Arthritis of right knee Start: 02-12-2024 End: 02-12-2024 [facility] [place] [facility] Start: 02-04-2024 End: 02-04-2024 ambulatory JASON RODRIGUEZ Not Available Start: 01-23-2024 End: 01-23-2024 ambulatory [facility] Work Phone: Start: 01-23-2024 End: 01-23-2024 Patient encounter procedure [facility] Work Phone: Start: 12-30-2023 End: 12-30-2023 Office outpatient new 30 minutes Klaus Yeboah MD Work Phone: [facility] [place] Comment on above: Arthritis of right k nee (Primary Dx); Right knee pain, unspecified chronicity Start: 12-30-2023 End: 12-30-2023 ambulatory [place] [facility] Start: 12-11-2023 End: 12-11-2023 Office outpatient visit 25 minutes Nae Rojas MD [facility] Comment on above: Sequelae, post-strok e (Primary Dx); Cerebrovascular accident (CVA) due to thrombosis of precerebral artery ([facility]); Type 2 diabetes mellitus with hyperglycemia, with long-term current use of insulin ([facility]); Transient alteration of awareness; Mixed hyperlipidemia; Blurred vision; Gait instability Start: 12-11-2023 End: 12-11-2023 ambulatory NAE [facility] Start: 12-01-2023 End: 12-01-2023 ambulatory Eleazar Mayorga Other [facility] Other Start: 12-01-2023 Telephone encounter Eleazar Mayorga G [facility] Start: 11-26-2023 End: 11-26-2023 ambulatory Eleazar Mayorga Other [facility] Other Start: 11-26-2023 Office outpatient vi sit 25 minutes Eleazar Mayorga [facility] Start: 11-26-2023 Telephone encounter Eleazar Mayorga FP G [facility] Start: 11-26-2023 End: 11-26-2023 Patient encounter procedure [facility] Start: 11-17-2023 Telephone encounter Alysha Gilbert RN [facility] Start: 11-05-2023 End: 11-05-2023 ambulatory ELEAZAR MAYORGA [facility] Start: 10-31-2023 ambulatory [facility] Comment on above: Cerebrovascular acci dent (CVA) due to thrombosis of precerebral artery ([facility]) (Primary Dx); Other cerebrovascular vasospasm and vasoconstriction Start: 10-28-2023 End: 10-30-2023 ambulatory [facility] Start: 10-28-2023 End: 10-30-2023 ambulatory [facility] Start: 10-28-2023 End: 10-30-2023 ambulatory HAMMAD Ocasio [facility] Start: 10-26-2023 End: 10-30-2023 Emergency department patient visit [facility] Start: 10-26-2023 End: 10-29-2023 Evaluation and management of inpatient [facility] Start: 05-09-[address] ELEAZAR Mcgraw ty:H1 Start: 11-27-[address] ELEAZAR Mcgraw ty:H1 Procedures Date Procedure Procedure Detail Performing Clinician Start: 10-09-2024 Duplex scan veins of upper limb Eleazar Mayorga [place] Work Phone: Start: 10-08-2024 Sedimentation rate rbc automated Gerard Platt DO Work Phone: Start: 10-06-2024 Computed tomography of abdomen and pelvis with contrast Eleazar Mayorga [place] Work Phone: Start: 10-06-2024 Plain chest X-ray Eleazar Mayorga [place] Work Phone: Start: 10-06-2024 Bacteria identified in Blood by Culture Eleazar Mayorga [place] Work Phone: Start: 10-06-2024 Respiratory Panel (PCR) Eleazar Mayorga DO Work Phone: Start: 10-06-2024 Urine culture Eleazar Mayorga DO Work Phone: Start: 10-05-2024 Glucose quantitative blood xcpt reagent strip Gricelda Perea MD Work Phone: Start: 10-05-2024 Glucose quantitative blood xcpt reagent strip Gricelda Perea MD Work Phone: Start: 10-05-2024 End: 10-05-2024 Basic metabolic panel calcium total Crystal Tamara Vargas CLIENT SUPPORT ADMINISTRATOR-HIDE HANDLER Work Phone: Start: 10-04-2024 Glucose quantitative blood [...] Basic metabolic panel calcium total Tea Vargas CLIENT SUPPORT ADMINISTRATOR-HIDE HANDLER Work Phone: Start: 10-03-2024 Glucose quantitative blood xcpt reagent strip Gricelda Perea MD Work Phone: Start: 10-03-2024 Blood count hematocrit Crystal Tamara Vargas CLIENT SUPPORT ADMINISTRATOR-HIDE HANDLER Work Phone: Start: 10-03-2024 Glucose quantitative blood xcpt reagent strip Gricelda Perea MD Work Phone: Start: 10-03-2024 Glucose quantitative blood xcpt reagent strip Gricelda Perea MD Work Phone: Start: 10-03-2024 End: 10-03-2024 Comprehensive metabolic panel Ohng Tello CLIENT SUPPORT ADMINISTRATOR-HIDE HANDLER Work Phone: Start: 10-02-2024 Glucose quantitative blood xcpt reagent strip Gricelda Perea MD Work Phone: Start: 10-02-2024 Glucose quantitative blood xcpt reagent strip Gricelda Perea MD Work Phone: Start: 10-02-2024 EXTRA URINE ALBA TUBE Hong Tello CLIENT SUPPORT ADMINISTRATOR-C MAJOR GIFTS DIRECTOR Work Phone: Start: 10-02-2024 Urinalysis complete W Reflex Culture panel - Urine Hong Tello CLIENT SUPPORT ADMINISTRATOR-HIDE HANDLER Work Phone: Start: 10-02-2024 Urnls dip stick/tablet reagent auto microscopy Hong Tello CLIENT SUPPORT ADMINISTRATOR-HIDE HANDLER Work Phone: Start: 10-02-2024 Glucose quantitative blood xcpt reagent strip Gricelda Perea MD Work Phone: Start: 10-02-2024 Ct abdomen & pelvis w/o contrast material Hong Tello CLIENT SUPPORT ADMINISTRATOR-HIDE HANDLER Work Phone: Start: 10-02-2024 Glucose quantitative blood xcpt reagent strip Gricelda Perea MD Work Phone: Start: 10-02-2024 Ecg routine ecg w/least 12 lds trcg only w/o i&r Hong Tello CLIENT SUPPORT ADMINISTRATOR-HIDE HANDLER Work Phone: Start: 10-02-2024 Comprehensive metabolic panel Hong Tello CLIENT SUPPORT ADMINISTRATOR-HIDE HANDLER Work Phone: Start: 04-19-2024 Colonoscopy Gricelda Perea MD Work Phone: Start: 04-10-2024 Gluc bld gluc mntr dev cleared fda spec home use Emilia Hidalgo MD Work Phone: Start: 04-10-2024 Ct angiography neck w/contrast/noncontrast Alexandra Barrientos CLIENT SUPPORT ADMINISTRATOR-HIDE HANDLER Work Phone: Start: 04-10-2024 End: 04-10-2024 Ct head/brain w/o contrast material Alexandra Barrientos CLIENT SUPPORT ADMINISTRATOR-HIDE HANDLER Work Phone: Start: 04-10-2024 Gluc bld gluc mntr dev cleared fda spec home use Emilia Hidalgo MD Work Phone: Start: 04-10-2024 Comprehensive metabolic panel Emilia Hidalgo MD Work Phone: Start: 04-10-2024 Gluc bld gluc mntr dev cleared fda spec home use Emilia Hidalgo MD Work Phone: Start: 04-09-2024 Gluc bld gluc mntr dev cleared fda spec home use Emilia Hidalgo MD Work Phone: Start: 04-09-2024 Assay of phosphorus inorganic Emilia Hidalgo MD Work Phone: Start: 04-09-2024 PULSE OXIMETRY, SPOT Emilia Hidalgo MD Work Phone: Start: 04-09-2024 Gluc bld gluc mntr dev cleared fda spec home use Emilia Hidalgo MD Work Phone: Start: 04-09-2024 Ecg routine ecg w/least 12 lds trcg only w/o i&r Yudelka Owensmita ESTRADA Work Phone: Start: 04-09-2024 Assay of troponin quantitative Yudelka Mcmullen DO Work Phone: Start: 04-09-2024 Mri brain brain stem w/o contrast material Yudelka Mcmullen DO Work Phone: Start: 04-09-2024 Assay of troponin quantitative Yudelka Mcmullen DO Work Phone: Start: 04-09-2024 End: 04-09-2024 Radiologic examination pelvis 1/2 views Yudelka Mcmullen Work Phone: Start: 04-09-2024 Ecg routine ecg w/least 12 lds trcg only w/o i&r Yudelka Mcmullen Work Phone: Start: 04-09-2024 Ct angiography neck w/contrast/noncontrast Yudelka Mcmullen DO Work Phone: Start: 04-09-2024 Basic metabolic panel calcium total Yudelka Mcmullen DO Work Phone: Start: 04-09-2024 Lipid panel Yudelka Mcmullen DO Work Phone: Start: 04-09-2024 End: 04-09-2024 Ct head/brain w/o contrast material Yudelka Mcmullen DO Work Phone: Start: 04-09-2024 ED PHYSICIAN SEPSIS SCREENING Yudelka Mcmullen DO Work Phone: Start: 04-09-2024 Lipid 1996 panel - Serum or Plasma Mri (Istat/1.5t) Work Phone: Start: 02-12-2024 Arthrocentesis aspir&/inj major jt/bursa w/o us Klaus Yeboah MD Work Phone: Start: 02-12-2024 Follow-up visit Follow-up KLAUS YEBOAH Start: 12-11-2023 Adult depression screening assessment Ehad Crystal TOWNSEND Work Phone: Start: 05-02-2016 Microalbumin [Mass/volume] in Urine by Test strip Alysha Gilbert RN History of operative procedure on knee History of arthroplasty of left knee History of operative procedure on knee JAROCHO POST History of repair of musculotendinous cuff of shoulder JAROCHO SEJAL Plan of Treatment Date Care Activity Detail Author Start: 04-19-2034 Screening for malign ant neoplasm of colon [facility] Start: 04-09-2029 Lipid panel Lipid Screening [facility] Start: 2028 RSV High Risk: (Elde rly (60+) or Population) (1 - 1-dose 75+ series) RSV High Risk: (Elderly (60+) or Population) (1 - 1-dose 75+ series) [facility] Start: 2028 RSV Vaccine (1 - 1-d ose 75+ series) RSV Vaccine (1 - 1-dose 75+ series) [facility] Start: 10-05-2027 Diabetes Screening Diabetes Screenin g [facility] Start: 10-05-2025 Diabetes mellitus screening Diabetes Screening [facility] Start: 06-07-2025 Adult BMI Screening Adult BMI Screen ing [facility] Start: 06-06-2025 Tobacco Screening Tobacco Screening [facility] Start: 06-01-2025 Adult BMI Screening Adult BMI Screen ing [facility] Start: 05-27-2025 Tobacco Screening Tobacco Screening [facility] Start: 02-11-2025 Adult BMI Screening Adult BMI Screen ing [facility] Start: 12-29-2024 Adult BMI Screening Adult BMI Screen ing [facility] Start: 12-29-2024 Tobacco Screening Tobacco Screening [facility] Start: 12-11-2024 Adult BMI Screening Adult BMI Screen ing [facility] Start: 12-11-2024 Depression Screening Depression Scre ening [facility] Start: 12-11-2024 Tobacco Screening Tobacco Screening [facility] Start: 12-01-2024 End: 12-01-2024 Patient encounter procedure 12/01/2024 1:40 PM EST Office Visit [address] [place] [address] Avery Hoyos MD [address] [place] [address] [address] [place] [address] [facility] Start: 11-02-2024 End: 11-02-2025 MR Liver WO contrast MR liver wo IV contrast Imaging Routine Gallbladder polyp Expected: 11/02/2024, Expires: 11/02/2025 [facility] Service Area Work Phone: Comment on above: Expected: 11/02/2024 , Expires: 11/02/2025 Start: 10-29-2024 Adult BMI Screening Adult BMI Screen ing [facility] Start: 10-28-2024 Bacteria identified in Urine by Culture Urine Culture [facility] Start: 10-28-2024 Urine culture [facility] Start: 10-27-2024 Advance Directive Discussion Advance Directive Discussion [facility] Start: 10-26-2024 Tobacco Screening Tobacco Screening [facility] Start: 10-12-2024 [facility] Start: 10-10-2024 Referral to neurologist [facility] Start: 10-09-2024 Referral to infectio us diseases physician [facility] Start: 10-07-2024 Referral to oncologist [facility] Start: 10-07-2024 Referral to journeyman pipefitter [facility] Start: 10-06-2024 [facility] Start: 10-06-2024 Referral to urologist [facility] Start: 10-06-2024 Hospital admission [facility] Start: 10-06-2024 Control Bleeding in Genitourinary Tract, Via Natural or Artificial Opening Endoscopic Control Bleeding in Genitourinary Tract, Via Natural or Artificial Opening Endoscopic [facility] Start: 10-06-2024 Fluoroscopy of Kidne ys, Ureters and Bladder using Low Osmolar Contrast Fluoroscopy of Kidneys, Ureters and Bladder using Low Osmolar Contrast [facility] Start: 07-22-2024 End: 07-22-2024 Telemedicine consultation with patient 07/22/2024 11:30 AM EDT Telemedicine [facility] [address] [place] [phone] Nae Rojas MD [address] [place] [address], [address] [place] [phone] [facility] Start: 06-27-2024 COVID-19 Vaccine ( season) COVID-19 Vaccine ( season) [facility] Start: 06-27-2024 Influenza vaccination [facility] Start: 06-03-2024 End: 06-03-2024 Patient encounter procedure 06/03/2024 3:05 PM EDT Office Visit [facility] [address] [facility] [place] [address] Klaus Yeboah MD [address] [facility] [place] [address] [facility] Start: 03-11-2024 End: 03-11-2024 Patient encounter procedure 03/11/2024 3:30 PM EDT Office Visit [facility] [address] [place] [phone] Nae Rojas MD [address] [place] [address], [address] [place] [address] [facility] Start: 02-25-2024 End: 02-25-2024 Patient encounter procedure 02/25/2024 10:30 AM EDT Appointment [facility] [address] [place] [phone] Arrived [facility] Comment on above: Arrived Start: 12-11-2023 End: 12-11-2023 Patient encounter procedure 12/11/2023 11:30 AM EST Office Visit [facility] [address] [place] [phone] Nae Rojas MD [address] [place] [address], [address] [place] [address] [facility] Start: 12-04-2023 End: 12-04-2023 Patient encounter procedure 12/04/2023 9:00 AM EST Office Visit [facility] [address] [place] [phone] Neo Easton MD [address] [place] [address] [phone] [facility] Start: 10-31-2023 End: 10-31-2024 Event Monitor (In Office) MELANY DRAKE Work Phone: Comment on above: Expected: 10/31/2023 , Expires: 10/31/2024 Start: 06-27-2023 Influenza vaccination Influenza Vacc ine [facility] Start: 2018 Abdominal aortic aneurysm screening [facility] Start: 2018 Fall Risk Screening Fall Risk Screen ing [facility] Start: 05-02-2017 Urine screening for protein Urine Microalbumin [facility] Start: 2013 RSV High Risk: (Elde rly (60+) or Population) (1 - Risk 60-74 years 1-dose series) RSV High Risk: (Elderly (60+) or Population) (1 - Risk 60-74 years 1-dose series) [facility] Start: 2003 Administration of varicella zoster vaccine Zoster (Shingles) Vaccine (1 of 2) [facility] Start: 2003 Pneumococcal Vaccine : 50+ (1 of 1 - PCV) Pneumococcal Vaccine: 50+ (1 of 1 - PCV) [facility] Start: 2003 Screening for malign ant neoplasm of lung Lung Cancer Screening [facility] Start: 2003 Shingrix Vaccine (1 of 2) Shingrix Vaccine (1 of 2) [facility] Start: 2003 Zoster Vaccines (1 of 2) Zoster Vacc monalisa (1 of 2) [facility] Start: 1998 Screening for malign ant neoplasm of colon [facility] Start: 1975 DTaP/Tdap/Td Vaccine s (1 - Tdap) DTaP/Tdap/Td Vaccines (1 - Tdap) [facility] Start: 1972 DTaP,Tdap and Td Vaccines (1 - Tdap) DTaP,Tdap and Td Vaccines (1 - Tdap) [facility] Start: 1972 Pneumococcal vaccination Pneum ococcal Vaccine (1 of 2 - PCV) [facility] Start: 1972 Urine microalbumin profile DTaP,Tdap,Td Vaccine (1 - Tdap) [facility] Start: 1971 Adult BMI Follow Up Plan Adult BMI F ollow Up Plan [facility] Start: 1971 Anxiety Screening Anxiety Screening [facility] Start: 1971 Depression Screening Depression Scre ening [facility] Start: 1971 Diabetic foot examination Diabetic Foot Exam [facility] Start: 1971 Hepatitis C screening Hepatitis C Sc reening [facility] Start: 1965 Depression Screening Depression Scre ening [facility] Start: 1959 Pneumococcal Vaccine : 65+ Years (1 of 2 - PCV) Pneumococcal Vaccine: 65+ Years (1 of 2 - PCV) [facility] Start: 1953 Glaucoma screening Diabetic Op hthalmology Exam [facility] Start: 1953 Lipid panel Lipid Panel [facility] Start: 1953 Medicare Annual Well ness Visit [facility] Start: 1953 Screening for malign ant neoplasm of colon [facility] Start: 1953 Tobacco Counseling Tobacco Counselin g [facility] Basic metabolic 2000 panel - Serum or Plasma Basic Metabolic Panel Lab Routine Morning draw (Lab) until discontinued starting 10/04/2024, 2 completed [facility] Service Area Work Phone: Comment on above: Morning draw (Lab) u ntil discontinued starting 10/04/2024, 2 completed End: 04-09-2024 Bedside Glucose *Place/Obtain serum glucose if >500(>600 [facility]) per glucometer. [employer] Work Phone: Comment on above: Once for 1 Occurrenc es starting 04/09/2024 until 04/09/2024 4X Daily (AC and at bedtime) until discontinued starting 04/09/2024, 3 completed CBC panel - Blood by Automated count CBC Lab Routine Morning draw (Lab) until discontinued starting 10/03/2024, 3 completed [facility] Work Phone: Comment on above: Morning draw (Lab) u ntil discontinued starting 10/03/2024, 3 completed End: 04-12-2024 CBC W Auto Differential panel - Blood CBC auto differential Lab Routine Lab max of 3 days, Daily, for lab use only for 3 Days starting 04/10/2024 until 04/12/2024, 1 completed [facility] Comment on above: Lab max of 3 days, D aily, for lab use only for 3 Days starting 04/10/2024 until 04/12/2024, 1 completed End: 04-12-2024 Comprehensive metabolic 2000 panel - Serum or Plasma Comprehensive metabolic panel Lab Routine Lab max of 3 days, Daily, for lab use only for 3 Days starting 04/10/2024 until 04/12/2024, 1 completed [facility] Comment on above: Lab max of 3 days, D aily, for lab use only for 3 Days starting 04/10/2024 until 04/12/2024, 1 completed ECG 12 Lead ECG 12 Lead ECG Routine As needed until discontinued starting 10/02/2024 [facility] Work Phone: Comment on above: As needed until disc ontinued starting 10/02/2024 End: 04-10-2024 Echo complete W/O contrast Echo complete W/O contrast Echocardiography Routine Once for 1 Occurrences starting 04/10/2024 until 04/10/2024 [employer] Work Phone: Comment on above: Once for 1 Occurrenc es starting 04/10/2024 until 04/10/2024 Glucose [Mass/volume ] in Serum or Plasma POCT Glucose Point of Care Testing - Docked Device Routine As needed (Lab) until discontinued starting 10/02/2024 [facility] Work Phone: Comment on above: As needed (Lab) unti l discontinued starting 10/02/2024 Iron and Iron bindin g capacity panel - Serum or Plasma Iron and TIBC Lab Routine 10/08/2024 7:[address] [facility] Work Phone: End: 10-02-2024 Irrigation of Bladder Irrigation of Bladder Procedures Routine Continuous until discontinued starting 10/02/2024 [facility] Service Area Work Phone: Comment on above: Continuous until dis continued starting 10/02/2024 End: 12-29-2024 Large Joint Injection/Arthrocentesis - PA Large Joint Injection/Arthrocentesis - PA Procedures Routine Right knee pain, unspecified chronicity Arthritis of right knee 1 Occurrences starting 12/30/2023 until 12/29/2024 [employer] Work Phone: Comment on above: 1 Occurrences starti ng 12/30/2023 until 12/29/2024 Magnesium [Mass/volu me] in Serum or Plasma Magnesium Lab Routine Morning draw (Lab) until discontinued starting 10/03/2024, 3 completed [facility] Work Phone: Comment on above: Morning draw (Lab) u ntil discontinued starting 10/03/2024, 3 completed End: 04-12-2024 Magnesium [Mass/volume] in Serum or Plasma Magnesium Lab Routine Lab max of 3 days, Daily, for lab use only for 3 Days starting 04/10/2024 until 04/12/2024, 1 completed [facility] Comment on above: Lab max of 3 days, D aily, for lab use only for 3 Days starting 04/10/2024 until 04/12/2024, 1 completed End: 12-29-2024 Nicotine screen, urine Nicotine screen, urine Lab Routine Arthritis of right knee 1 Occurrences starting 12/30/2023 until 12/29/2024 [facility] Comment on above: 1 Occurrences starti ng 12/30/2023 until 12/29/2024 Oxygen Therapy - Maintain SpO2: 90%; *CTO Guidelines for O2: Yes; Document: [email or web address]\epi c\EPIC_Reference\Orders\ Respiratory Care Guidelines\CPG Oxygen 2022.pdf Oxygen Therapy - Maintain SpO2: 90%; *CTO Guidelines for O2: Yes; Document: \[email or web address]\epic \EPIC_Reference\Orders\Re spiratory Care Guidelines\CPG Oxygen 2022.pdf Respiratory Care Routine As Needed until discontinued starting 04/09/2024 [facility] Comment on above: As Needed until disc ontinued starting 04/09/2024 Patient referral [facility] Work Phone: Phosphate [Mass/volu me] in Serum or Plasma Phosphorus Lab Routine Morning draw (Lab) until discontinued starting 10/03/2024, 3 completed [facility] Work Phone: Comment on above: Morning draw (Lab) u ntil discontinued starting 10/03/2024, 3 completed End: 04-11-2024 Phosphate [Mass/volume] in Serum or Plasma Phosphorus Lab Routine Lab max of 3 days, Daily, for lab use only for 3 Days starting 04/09/2024 until 04/11/2024, 2 completed [facility] Comment on above: Lab max of 3 days, Ministerio mccormack, for lab use only for 3 Days starting 04/09/2024 until 04/11/2024, 2 completed [facility] Immunizations Immunization Date Immunization Notes Care Provider Fortino rouse 07-08-2018 influenza virus vaccine, split virus (incl. purified surface antigen) Eleazar Mayorga Other [facility] Other 07-08-2018 influenza virus vaccine, unspecified formulation [facility] Payers Date Payer Category Payer Medicare [id number] 2024 Medicare [id number] 2024 Medicaid [id number] 2021 Medicaid [id number]. [id number] 2021 Medicare [id number] [id number]. [id number] 2021 Medicare (Managed Care) 1.2. [id number]. [id number] 2021 Medicare HMO [employer] MED[employer]ARE [id number]. [id number] 2021 Medicare [id number] 1959 Self-pay 1953 Unknown [id number] 2.16.840.1.492847.3.579.2. 593 1953 Unknown [id number] 2.16.840.1.150355.3.579.2. 593 1953 Unknown [id number] 2.16.840.1.235961.3.579.2. 1259 1953 Unknown [id number] 2.16.840.1.281093.3.579.2. 1286 1953 Unknown [id number] 2.16.840.1.099852.3.579.2. 1286 1953 Unknown [id number] 2.16.840.1.969319.3.579.2. 1286 1953 Unknown [id number] 2.16.840.1.617077.3.579.2. 1286 1953 Unknown [id number] 2.16.840.1.089633.3.579.2. 1286 1953 Unknown [id number] 2.16.840.1.216081.3.579.2. 1286 1953 Unknown [id number] 2.16.840.1.062984.3.579.2. 1286 1953 Unknown [id number] 2.16.840.1.966095.3.579.2. 1286 1953 Unknown [id number] 2.16.840.1.632395.3.579.2. 1286 1953 Unknown [id number] 2.16.840.1.063487.3.579.2. 1286 1953 Unknown [id number] 2.16.840.1.469176.3.579.2. 1286 1953 Unknown [id number] 2.16.840.1.838774.3.579.2. 1286 1953 Unknown [id number] 2.16.840.1.057975.3.579.2. 1285 1953 Unknown [id number] 2.16.840.1.351782.3.579.2. 1285 1953 Unknown [id number] 2.16.840.1.318325.3.579.2. 1285 1953 Unknown [id number] 2.16.840.1.772243.3.579.2. 1285 1953 Unknown [id number] 2.16.840.1.188664.3.579.2. 1285 1953 Unknown [id number] 2.16.840.1.549652.3.579.2. 1285 1953 Unknown [id number] 2.16.840.1.652371.3.579.2. 1285 1953 Unknown [id number] 2.16.840.1.579875.3.579.2. 1285 1953 Unknown [id number] 2.16.840.1.013681.3.579.2. 1285 1953 Unknown [id number] 2.16.840.1.516606.3.579.2. 1285 1953 Unknown [id number] 2.16.840.1.537266.3.579.2. 1285 1953 Unknown [id number] 2.16.840.1.034226.3.579.2. 128 1953 Unknown [id number] 2.16.840.1.747677.3.579.2. 1285 1953 Unknown [id number] 2.16.840.1.342082.3.579.2. 1285 1953 Unknown [id number] 2.16.840.1.022301.3.579.2. 1285 1953 Unknown [id number] 2.16.840.1.147323.3.579.2. 1286 1953 Unknown [id number] 2.16.840.1.584594.3.579.2. 1286 1953 Unknown [id number] 2.16.840.1.164854.3.579.2. 1286 1953 Unknown [id number] 2.16.840.1.474402.3.579.2. 1286 1953 Unknown [id number] 2.16.840.1.260435.3.579.2. 1286 1953 Unknown [id number] 2.16.840.1.259850.3.579.2. 1286 1953 Unknown [id number] 2.16.840.1.215730.3.579.2. 128 1953 Unknown [id number] 2.16.840.1.367405.3.579.2. 1286 1953 Unknown [id number] 2.16.840.1.555764.3.579.2. 1286 1953 Unknown [id number] 2.16.840.1.111965.3.579.2. 1243 1953 Unknown [id number] 2.16.840.1.971206.3.579.2. 1244 1953 Unknown [id number] 2.16.840.1.404813.3.579.2. 1244 1953 Unknown [id number] 2.16.840.1.391118.3.579.2. 727 1953 Unknown [id number] 2.16.840.1.997541.3.579.2. 727 1953 Unknown [id number] 2.16.840.1.204635.3.579.2. 727 1953 Unknown [id number] 2.16.840.1.141381.3.579.2. 727 1953 Unknown [id number] 2.16.840.1.956448.3.579.2. 727 1953 Unknown [id number] 2.16.840.1.346503.3.579.2. 727 1953 Unknown [id number] 2.16.840.1.741223.3.579.2. 72 1953 Unknown [id number] 2.16.840.1.500887.3.579.2. 72 1953 Unknown [id number] 2.16.840.1.962391.3.579.2. 72 1953 Unknown [id number] 2.16.840.1.493061.3.579.2. 727 1953 Unknown [id number] 2.16.840.1.977268.3.579.2. 72 1953 Unknown [id number] 2.16.840.1.718601.3.579.2. 72 1953 Unknown [id number] 1955 Unknown [id number] 1955 Unknown [id number] 1955 Unknown [id number] Unknown [id number] Unknown [id number] Unknown [id number] Social History Date Type Detail Facility Start: 12-07-2020 End: 10-02-2024 Sex Assigned At [facility] Start: 1955 Sex Assigned At Male F [facility] Start: 04-09-2024 End: 10-02-2024 Tobacco smoking status NHIS Smokes tobacco daily [facility] Start: 10-27-1960 History of tobacco use Cigarette Smo ker [facility] Start: 12-07-2020 End: 10-02-2024 Cigarettes smoked current (pack per day) - Reported 0.5 [facility] History of tobacco use Passive smoker [facility] Work Phone: Start: 04-09-2024 End: 10-02-2024 Tobacco use and exposure Smokeless tobacco non-user [facility] Start: 06-06-2024 End: 10-02-2024 Alcoholic beverage intake Ex-drinker (finding) [facility] Has the [facility], or water BLOVES threatened to shut off services in your home in past 12Mo Patient declined [facility] Within the last year , have you been afraid of your partner or ex-partner? No [facility] How often to you hav e a drink containing alcohol? Never [facility] Start: 1955 Sex assigned at Not on file P [facility] Start: 09-22-2024 End: 11-02-2024 Exposure to SARS-CoV-2 (event) Not sure [facility] Work Phone: Start: 02-12-2024 Tobacco smoking stat us PRIS Never smoked tobacco [facility] Start: 10-25-2024 End: 05-09-2025 Tobacco smoking status Ex-smoker (finding) [facility] [place] Start: 10-11-2024 Tobacco smoking stat us NHIS Smoker (finding) [facility] Start: 06-01-2015 End: 10-29-2024 Sex Male (finding) [facility] Tobacco smoking stat [email or web address] Tobacco smoking consumption unknown [facility] Sexual Orientation [facility] E[place]en Goals Date Patient Goal Desired Activity /State [...] the original. Evaluation of progress towards goal: Daughter has noted that there is a lack of communication with leaders. She has attempted to discuss with the DON multiple times. She states that there has been no improvements in communication. Daughter is tearful. She states that recently she found out that her father was positive for a UTI and it was approximately 20 days before they began to treat him with an antibiotic. She is requesting discharge to an alternate SNF. Personal health goal Comment on above: Formatting of this n ote might be different from the original. Evaluation of progress towards goal: Current Discharge Plan; SN[facility] Functional Status Date Assessment Result Facility 11-08-2024 Functional Status N/A [facility] 10-25-2024 Functional Status N/A [facility] 10-12-2024 Functional status Patient at [facility] Work Phone: Mental Status Date Assessment Result Facility 10-12-2024 Cognitive function Cognitive Sta tus Patient at Baseline [facility] Work Phone: Clinical Notes 11-17-2023 to 05-09-2025 Note Date & Type Note Facility 05-09-2025 Hospital Discharg e instructions Patient Education 05/09/2025 10:45:22 Urinary Tract Infection, Adult Urinary Tract Infection, Adult A urinary tract infection (UTI) is an infection of any part of the urinary tract. The urinary tract includes the kidneys, ureters, bladder, and urethra. These organs make, store, and get rid of urine in the body. An upper UTI affects the ureters and kidneys. A lower UTI affects the bladder and urethra. What are the causes? Most urinary tract infections are caused by bacteria in your genital area around your urethra, where urine leaves your body. These bacteria grow and cause inflammation of your urinary tract. What increases the risk? You are more likely to develop this condition if: You have a urinary catheter that stays in place. You are not able to control when you urinate or have a bowel movement (incontinence). You are female and you: ?Use a spermicide or diaphragm for control. ?Have low estrogen levels. ?Are . You have certain genes that increase your risk. You are sexually active. You take antibiotic medicines. You have a condition that causes your flow of urine to slow down, such as: ?An enlarged prostate, if you are male. ?Blockage in your urethra. ?A kidney stone. ?A nerve condition that affects your bladder control (neurogenic bladder). ?Not getting enough to drink, or not urinating often. You have certain medical conditions, such as: ?Diabetes. ?A weak disease-fighting system (immunesystem). ?Sickle cell disease. ?Gout. ?Spinal cord injury. What are the signs or symptoms? Symptoms of this condition include: Needing to urinate right away (urgency). Frequent urination. This may include small amounts of urine each time you urinate. Pain or burning with urination. Blood in the urine. Urine that smells bad or unusual. Trouble urinating. Cloudy urine. Vaginal discharge, if you are female. Pain in the abdomen or the lower back. You may also have: Vomiting or a decreased appetite. Confusion. Irritability or tiredness. A fever or chills. Diarrhea. The first symptom in older adults may be confusion. In some cases, they may not have any symptoms until the infection has worsened. How is this diagnosed? This condition is diagnosed based on your medical history and a physical exam. You may also have other tests, including: Urine tests. Blood tests. Tests for STIs (sexually transmitted infections). If you have had more than one UTI, a cystoscopy or imaging studies may be done to determine the cause of the infections. How is this treated? Treatment for this condition includes: Antibiotic medicine. Adni-lxo-ucpzqmf medicines to treat discomfort. Drinking enough water to stay hydrated. If you have frequent infections or have other conditions such as a kidney stone, you may need to see a health care provider who specializes in the urinary tract (urologist). In rare cases, urinary tract infections can cause sepsis. Sepsis is a life-threatening condition that occurs when the body responds to an infection. Sepsis is treated in the hospital with IV antibiotics, fluids, and other medicines. Follow these instructions at home: Medicines Take jlng-way-ewquykz and prescription medicines only as told by your health care provider. If you were prescribed an antibiotic medicine, take it as told by your health care provider. Do not stop using the antibiotic even if you start to feel better. General instructions Make sure you: ?Empty your bladder often and completely. Do not hold urine for long periods of time. ?Empty your bladder after sex. ?Wipe from front to back after urinating or having a bowel movement if you are female. Use each tissue only one time when you wipe. Drink enough fluid to keep your urine pale yellow. Keep all follow-up visits. This is important. Contact a health care provider if: Your symptoms do not get better after 1 2 days. Your symptoms go away and then return. Get help right away if: You have severe pain in your back or your lower abdomen. You have a fever or chills. You have nausea or vomiting. Summary A urinary tract infection (UTI) is an infection of any part of the urinary tract, which includes the kidneys, ureters, bladder, and urethra. Most urinary tract infections are caused by bacteria in your genital area. Treatment for this condition often includes antibiotic medicines. If you were prescribed an antibiotic medicine, take it as told by your health care provider. Do not stop using the antibiotic even if you start to feel better. Keep all follow-up visits. This is important. This information is not intended to replace advice given to you by your health care provider. Make sure you discuss any questions you have with your health care provider. Document Revised: 05/20/2021 Document Reviewed: 05/25/2021 [employer] Patient Education 2023 [employer]. Follow Up Care 05/02/2025 11:45:18 With:JAROCHO POST MD, URL Address: When: Unknown [facility] 05-09-2025 Note Patient Education Urology Urinary Tract Infection, Adult A urinary tract infection (UTI) is an infection of any part of the urinary tract. The urinary tract includes the kidneys, ureters, bladder, and urethra. These organs make, store, and get rid of urine in the body. An upper UTI affects the ureters and kidneys. A lower UTI affects the bladder and urethra. What are the causes? Most urinary tract infections are caused by bacteria in your genital area around your urethra, where urine leaves your body. These bacteria grow and cause inflammation of your urinary tract. What increases the risk? You are more likely to develop this condition if: ??? You have a urinary catheter that stays in place. ??? You are not able to control when you urinate or have a bowel movement (incontinence). ??? You are female and you: ? Use a spermicide or diaphragm for control. ? Have low estrogen levels. ? Are . ??? You have certain genes that increase your risk. ??? You are sexually active. ??? You take antibiotic medicines. ??? You have a condition that causes your flow of urine to slow down, such as: ? An enlarged prostate, if you are male. ? Blockage in your urethra. ? A kidney stone. ? A nerve condition that affects your bladder control (neurogenic bladder). ? Not getting enough to drink, or not urinating often. ??? You have certain medical conditions, such as: ? Diabetes. ? A weak disease-fighting system (immunesystem). ? Sickle cell disease. ? Gout. ? Spinal cord injury. What are the signs or symptoms? Symptoms of this condition include: ??? Needing to urinate right away (urgency). ??? Frequent urination. This may include small amounts of urine each time you urinate. ??? Pain or burning with urination. ??? Blood in the urine. ??? Urine that smells bad or unusual. ??? Trouble urinating. ??? Cloudy urine. ??? Vaginal discharge, if you are female. ??? Pain in the abdomen or the lower back. You may also have: ??? Vomiting or a decreased appetite. ??? Confusion. ??? Irritability or tiredness. ??? A fever or chills. ??? Diarrhea. The first symptom in older adults may be confusion. In some cases, they may not have any symptoms until the infection has worsened. How is this diagnosed? This condition is diagnosed based on your medical history and a physical exam. You may also have other tests, including: ??? Urine tests. ??? Blood tests. ??? Tests for STIs (sexually transmitted infections). If you have had more than one UTI, a cystoscopy or imaging studies may be done to determine the cause of the infections. How is this treated? Treatment for this condition includes: ??? Antibiotic medicine. ??? Befa-rck-lvevyvg medicines to treat discomfort. ??? Drinking enough water to stay hydrated. If you have frequent infections or have other conditions such as a kidney stone, you may need to see a health care provider who specializes in the urinary tract (urologist). In rare cases, urinary tract infections can cause sepsis. Sepsis is a life-threatening condition that occurs when the body responds to an infection. Sepsis is treated in the hospital with IV antibiotics, fluids, and other medicines. Follow these instructions at home: Medicines ??? Take lqah-luo-xxhujpm and prescription medicines only as told by your health care provider. ??? If you were prescribed an antibiotic medicine, take it as told by your health care provider. Do not stop using the antibiotic even if you start to feel better. General instructions ??? Make sure you: ? Empty your bladder often and completely. Do not hold urine for long periods of time. ? Empty your bladder after sex. ? Wipe from front to back after urinating or having a bowel movement if you are female. Use each tissue only one time when you wipe. ??? Drink enough fluid to keep your urine pale yellow. ??? Keep all follow-up visits. This is important. Contact a health care provider if: ??? Your symptoms do not get better after 1?2 days. ??? Your symptoms go away and then return. Get help right away if: ??? You have severe pain in your back or your lower abdomen. ??? You have a fever or chills. ??? You have nausea or vomiting. Summary ??? A urinary tract infection (UTI) is an infection of any part of the urinary tract, which includes the kidneys, ureters, bladder, and urethra. ??? Most urinary tract infections are caused by bacteria in your genital area. ??? Treatment for this condition often includes antibiotic medicines. ??? If you were prescribed an antibiotic medicine, take it as told by your health care provider. Do not stop using the antibiotic even if you start to feel better. ??? Keep all follow-up visits. This is important. This information is not intended to replace advice given to you by your health care provider. Make sure you discuss any question (more content not included)... [facility] 05-02-2025 Note Microbiology PROCEDURE: Blood Culture Charcoal [R1] SOURCE: Blood BODY SITE: COLLECTED DATE/TIME: 04/24/2025 21:08 EDT RECEIVED DATE/TIME: 04/24/2025 22:38 EDT START DATE/TIME: 04/24/2025 22:38 EDT FREE TEXT SOURCE: Right Forearm Peripheral vein site #1 Isai Mehta DO. Isai Mehta DO FINAL REPORTS Final Report [] Verified Date/Time: 05/02/2025 00:00 EDT No growth at 7 days. Performing Locations R1: This test was performed at: [facility], [address] [place] [address], [address] [place] [address], [facility] Comment on above: Performed By: #### [id number] #### [facility] [address] [place] [id number] 05-02-2025 Note Microbiology PROCEDURE: Blood Culture Charcoal [R1] SOURCE: Blood BODY SITE: Hand R COLLECTED DATE/TIME: 04/24/2025 21:07 EDT RECEIVED DATE/TIME: 04/24/2025 21:19 EDT START DATE/TIME: 04/24/2025 21:19 EDT FREE TEXT SOURCE: Isai Mehta DO, DO, Kevin M. FINAL REPORTS Final Report [] Verified Date/Time: 05/02/2025 00:00 EDT No growth at 7 days. Performing Locations R1: This test was performed at: [facility], [address] [place] [address], [address] [place] [address], [facility] Comment on above: Performed By: #### [id number] #### [facility] [address] [place] [id number] 04-28-2025 Evaluation + Plan note Extrac willian from: Title:Discharge Note Author:SUKH TOWNSEND, Wandy Mandel ate:04/28/25 Stable Discharge To, Anticipated II - [facility] Discharged to - assisted unit Transported by, Anticipated - EMS SNF, [facility] Discharge Diet(s): Calorie Controlled- 1800 Calorie Diet, Other: Drink at least 1.5 L of fluid per day (04/28/25 10:26:00) Prescriptions Bactrim D.S. 800 mg-160 mg Tab, 1 tab(s), Oral, BID Keppra 500 mg Tab, 500 mg= 1 tab(s), Oral, BID Home acetaminophen 325 mg Tab, 325 mg= 1 tab(s), Oral, q8hr Admelog SoloStar 100 units/mL injectable solution, Not taking Admelog SoloStar 100 units/mL injectable solution, 1 unit(s), SubCutaneous aspirin 81 mg oral capsule, Oral, q24hr atorvastatin 40 mg Tab betamethasone-clotrimazole Top 0.05%-1% Crm 15 gram, 1 miguel, Topical, BID Biofreeze 5% topical pad, Topical, TID Brilinta (ticagrelor) 90 mg oral tablet, Not taking Dulcolax 10 mg Supp, 10 mg= 1 supp, Rectal, Daily, PRN Ferrex-150, 150 mg, Oral, Daily finasteride 5 mg Tab folic acid 1 mg Tab, 1 mg= 1 tab(s), Oral, Daily gabapentin 100 mg Cap lamotrigine, 25 mg, Oral, Not taking Lantus Solostar Pen 100 units/mL subcutaneous solution loperamide 2 mg Cap, 2 mg= 1 cap(s), Oral magnesium hydroxide, 400 mg, Not taking melatonin 3 mg Tab, Not taking Metamucil 3.4 g/5.2 g oral powder, 3.4 gm, Oral, Daily METOPROL SUC 50MG ER TAB, 0 metoprolol succinate 50 mg ER Tab Pantoprazole [address] Tab polyethylene glycol 3350 tamsulosin 0.4 mg Cap traZODONE 150 mg Tab, 75 mg= 0.5 tab(s), Oral, Once a day (at bedtime) With When Contact Information Follow-up with your urologist as soon as possible for Cyr catheter replacement Within 3 to 5 days Additional Instructions: Call for followup appointment ELEAZAR MAYORGA Within 2 to 3 days [address] [place] [address]- [facility] (1) Additional Instructions: Neurology Within 2 to 4 weeks Additional Instructions: Call [phone] for follow up appt Toxic Metabolic Encephalopathy Extracted from: Title:APSO Note Author:SUKH TOWNSEND, Mbanefo Date: 69-year-old residential mal e resident with history of cerebrovascular accident with left-sided hemiplegia, pancytopenia, sinus bradycardia, hypertension, diabetes mellitus, hyperlipidemia, chronic hyponatremia, GERD, chronic indwelling Cyr catheter presented from the half-way facility because of change in mental status and seizures and was admitted with acute metabolic encephalopathy secondary to catheter associated MRSA, Providencia urinary tract infection, postictal secondary to new onset post stroke seizure and minor head trauma. 1. Acute encephalopathy (G93.40: Encephalopathy, unspecified) Acute metabolic encephalopathy multifactorial secondary to catheter associated urinary tract infection and postictal Resolved. Patient is back to his baseline mentation. Seen by neurologist. Ordered: Sbsq Hospital Care/Day Moderate 35 Minutes 25829 2. Catheter-associated urinary tract infection (T83.511A: Infection and inflammatory reaction due to indwelling urethral catheter, initial encounter) Catheter associated MRSA and Providencia urinary tract infection present on admission. Continue treated with IV meropenem and vancomycin. Will speak with infectious disease specialist to see if we can convert to oral Bactrim at discharge. Ordered: Sbsq Hospital Care/Day Moderate 35 Minutes [id number] 3. 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 Seen by neurologist. Patient was started on Keppra 500 mg twice daily. Buspirone was discontinued because of lowering seizure threshold. Ordered: Sbsq Hospital Care/Day Moderate 35 Minutes 63461 4. Involuntary movements (R25.9: Unspecified abnormal involuntary movements) Secondary to above seizure. Resolved. Ordered: Sbsq Hospital Care/Day Moderate 35 Minutes [id number] 5. Minor head trauma (S09.90XA: Unspecified injury of head, initial encounter) Secondary to fall at residential several days prior to presentation. Ordered: Sbsq Hospital Care/Day Moderate 35 Minutes [id number] 6. Hypokalemia (E87.6: Hypokalemia) Resolved. 7. History of CVA in adulthood (Z86.73: Personal history of transient ischemic attack (TIA), and cerebral infarction without residual deficits) History of right-sided stroke with left hemiplegia. 8. Pancytopenia (D61.818: Other pancytopenia) Chronic. 9. Sinus bradycardia (R00.1: Bradycardia, unspecified) Secondary to metoprolol. Resolved. 10. Hypertensive urgency (I16.0: Hypertensive urgency) Resolved. Continue on metoprolol. 11. Diabetes (E11.9: Type 2 diabetes mellitus without complications) Continue on long-acting and short acting insulin. 12. Hyperlipidemia (E78.5: Hyperlipidemia, unspecified) On Lipitor. 13. Hyponatremia (E87.1: Hypo-osmolality and hyponatremia) Chronic. 14. Chronic GERD (K21.9: Gastro-esophageal reflux disease without esophagitis) Supportive care. 15. Encounter for deep vein thrombosis (DVT) prophylaxis (Z29.9: Encounter for prophylactic measures, unspecified) SCDs. Disposition: Back to half-way facility soon. I discussed the diagnosis and plan of care with the patient at the bedside. Moderate level of MDM based on addressing above issues. This documentation was transcribed using voice recognition software. Several attempts were made to ensure accuracy. However inadvertent computerized business owner/engineer errors may be present. Wandy Woodruff. Hospitalist. Orders: meropenem + Sodium Chloride 0.9% intravenous solution 50 mL, 1,000 mg = 1 EA, Powder-Inj, IV Piggyback, q8hrFT, NOW, Start date 04/27/25 16:03:00 EDT, 100 mL/hr, Infuse over 30 minute(s) metoprolol, 50 mg = 1 tab(s), Tab-ER, Oral, Daily, Routine, Start date 04/28/25 9:00:00 EDT, 04/27/25 10:01:00 EDT vancomycin + Generic Diluent 350 mL, 1,750 mg = 350 mL, Soln-IV, IV Piggyback, q12hr, Start date 04/27/25 21:00:00 EDT, 175 mL/hr, Infuse over 2 hour(s) Vancomycin Level Peak Vancomycin Level Trough Extracted from: Title:APSO Note Author:SUKH TOWNSEND, Wandy Date: 69-year-old residential mal e resident with history of cerebrovascular accident with left-sided hemiplegia, pancytopenia, sinus bradycardia, hypertension, diabetes mellitus, hyperlipidemia, chronic hyponatremia, GERD, chronic indwelling Cyr catheter presented from the half-way facility because of change in mental status and seizures and was admitted with acute metabolic encephalopathy secondary to catheter associated urinary tract infection, postictal secondary to new onset post stroke seizure and minor head trauma. 1. Acute encephalopathy (G93.40: Encephalopathy, unspecified) Acute metabolic encephalopathy multifactorial secondary to catheter associated urinary tract infection and postictal Resolved. Patient is back to his baseline mentation. Seen by neurologist. [facility]: [facility] Moderate 35 Minutes 67795 2. Catheter-associated urinary tract infection (T83.511A: Infection and inflammatory reaction due to indwelling urethral catheter, initial encounter) Catheter associated Staphylococcus and gram-negative tania urinary tract infection present on admission. Expanded IV antibiotics to ceftriaxone and vancomycin pending final urine culture results. Ordered: [facility]/Day Moderate 35 Minutes 08636 3. 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 Seen by neurologist. Patient was started on Keppra 500 mg twice daily. Buspirone was discontinued because of lowering seizure threshold. Ordered: [facility]/Day Moderate 35 Minutes 11095 4. Involuntary movements (R25.9: Unspecified abnormal involuntary movements) Secondary to above seizure. Resolved. Ordered: [facility]/Day Moderate 35 Minutes [id number] 5. Minor head trauma (S09.90XA: Unspecified injury of head, initial encounter) Secondary to fall at residential several days prior to presentation. 6. Hypokalemia (E87.6: Hypokalemia) Resolved. 7. History of CVA in adulthood (Z86.73: Personal history of transient ischemic attack (TIA), and cerebral infarction without residual deficits) History of right-sided stroke with left hemiplegia. 8. Pancytopenia (D61.818: Other pancytopenia) Chronic. 9. Sinus bradycardia (R00.1: Bradycardia, unspecified) Secondary to metoprolol. Resolved. 10. Hypertensive urgency (I16.0: Hypertensive urgency) Resolved. Continue on metoprolol. 11. Diabetes (E11.9: Type 2 diabetes mellitus without complications) Continue on long-acting and short acting insulin. 12. Hyperlipidemia (E78.5: Hyperlipidemia, unspecified) On Lipitor. 13. Hyponatremia (E87.1: Hypo-osmolality and hyponatremia) Chronic. 14. Chronic GERD (K21.9: Gastro-esophageal reflux disease without esophagitis) Supportive care. 15. Encounter for deep vein thrombosis (DVT) prophylaxis (Z29.9: Encounter for prophylactic measures, unspecified) SCDs. Disposition: Back to half-way facility pending final urine culture result. I discussed the diagnosis and plan of care with the patient at the bedside. Moderate level of MDM based on addressing above issues. This documentation was transcribed using voice recognition software. Several attempts were made to ensure accuracy. However inadvertent computerized business owner/engineer errors may be present. Wandy Woodruff. Hospitalist. Orders: metoprolol, 50 mg = 1 tab(s), Tab-ER, Oral, Daily, Routine, Start date 04/28/25 9:00:00 EDT, 04/27/25 10:01:00 EDT morphine, 2 mg = 1 mL, Injection, IV Push, q6hr PRN Pain for 5 day(s), Stop date 05/02/25 8:23:00 EDT, NOW, Start date 04/27/25 8:24:00 EDT, 04/27/25 8:24:00 EDT vancomycin, PHARMACY TO DOSE, Injection, IV, As Directed, Routine, Start date 04/26/25 17:04:00 EDT vancomycin + Generic Diluent 350 mL, 1,750 mg = 350 mL, Soln-IV, IV Piggyback, q12hr, Start date 04/26/25 19:00:00 EDT, 175 mL/hr, Infuse over 2 hour(s) Education Fall Risk Vancomycin Level Peak Vancomycin Level Trough Extracted from: Title:APSO Note Author:Wandy WOODRUFF MD Date: 69-year-old residential mal e resident with history of cerebrovascular accident with left-sided hemiplegia, pancytopenia, sinus bradycardia, hypertension, diabetes mellitus, hyperlipidemia, chronic hyponatremia, GERD, chronic indwelling Cyr catheter presented from the half-way facility because of change in mental status and seizures and was admitted with acute metabolic encephalopathy secondary to catheter associated urinary tract infection, postictal secondary to new onset post stroke seizure and minor head trauma. 1. Acute encephalopathy (G93.40: Encephalopathy, unspecified) Acute metabolic encephalopathy multifactorial secondary to catheter associated urinary tract infection and postictal. Fluctuating. Approaching baseline. Seen by neurologist. Ordered: [facility] Hospital Care/Day Moderate 35 Minutes 34886 2. Catheter-associated urinary tract infection (T83.511A: Infection and inflammatory reaction due to indwelling urethral catheter, initial encounter) Catheter associated urinary tract infection present on admission. Treating with IV ceftriaxone pending final urine culture result. Ordered: [facility] Care/Day Moderate 35 Minutes [id number] 3. 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 Seen by neurologist. Patient was started on Keppra 500 mg twice daily. Buspirone was discontinued because of lowering seizure threshold. Ordered: [facility] Hospital Care/Day Moderate 35 Minutes [id number] 4. Involuntary movements (R25.9: Unspecified abnormal involuntary movements) Secondary to above seizure. Resolved. Ordered: [facility] Hospital Care/Day Moderate 35 Minutes [id number] 5. Minor head trauma (S09.90XA: Unspecified injury of head, initial encounter) Secondary to fall at residential several days prior to presentation. Ordered: [facility] Care/Day Moderate 35 Minutes [id number] 6. Hypokalemia (E87.6: Hypokalemia) Replaced. 7. History of CVA in adulthood (Z86.73: Personal history of transient ischemic attack (TIA), and cerebral infarction without residual deficits) History of right-sided stroke with left hemiplegia. 8. Pancytopenia (D61.818: Other pancytopenia) Chronic. 9. Sinus bradycardia (R00.1: Bradycardia, unspecified) Secondary to metoprolol. Resolved. Will resume metoprolol. 10. Hypertensive urgency (I16.0: Hypertensive urgency) Resolved. On metoprolol. 11. Diabetes (E11.9: Type 2 diabetes mellitus without complications) On long-acting and short acting insulin. 12. Hyperlipidemia (E78.5: Hyperlipidemia, unspecified) On Lipitor. 13. Hyponatremia (E87.1: Hypo-osmolality and hyponatremia) Chronic. 14. Chronic GERD (K21.9: Gastro-esophageal reflux disease without esophagitis) Supportive care. 15. Encounter for deep vein thrombosis (DVT) prophylaxis (Z29.9: Encounter for prophylactic measures, unspecified) SCDs. Disposition: Back to half-way facility pending final urine culture result. I discussed the diagnosis and plan of care with the patient at the bedside. Moderate level of MDM based on addressing above issues. This documentation was transcribed using voice recognition software. Several attempts were made to ensure accuracy. However inadvertent computerized business owner/engineer errors may be present. Wandy Woodruff. Hospitalist. Orders: bisacodyl, 10 mg = 1 supp, Supp, Rectal, Once, Stop date 04/25/25 15:00:00 EDT, Routine, Start date 04/25/25 15:00:00 EDT, 04/25/25 14:18:00 EDT gabapentin, 100 mg = 1 cap(s), Cap, Oral, Daily, Routine, Start date 04/26/25 9:00:00 EDT, 04/25/25 10:49:00 EDT levetiracetam + Generic Diluent 100 mL, 500 mg = 100 mL, Soln-IV, IV Piggyback, BID, Routine, Start date 04/26/25 10:00:00 EDT, 400 mL/hr, Infuse over 15 minute(s) pantoprazole, 40 mg = 1 tab(s), Tab-DR, Oral, Daily, Routine, Start date 04/26/25 9:00:00 EDT [employer] Comment Education Fall Risk Precautions Urinary Catheter Care Extracted from: Title:APSO Note Author:Chiquis WOODRUFF MDanefo Date: 69-year-old residential mal e resident with history of cerebrovascular accident with left-sided hemiplegia, pancytopenia, sinus bradycardia, hypertension, diabetes mellitus, hyperlipidemia, chronic hyponatremia, GERD, chronic indwelling Cyr catheter presented from the half-way facility because of change in mental status and seizures and was admitted with acute metabolic encephalopathy secondary to catheter associated urinary tract infection, postictal secondary to new onset post stroke seizure and minor head trauma. 1. Acute encephalopathy (G93.40: Encephalopathy, unspecified) Acute metabolic encephalopathy multifactorial secondary to catheter associated urinary tract infection and postictal. Resolved. Patient is back to his baseline mentation. Treating underlying disease process. Neurology consult reviewed by me. I appreciate and agree with recommendations. Ordered: [facility] Hospital Care/Day Moderate 35 Minutes [id number] 2. Catheter-associated urinary tract infection (T83.511A: Infection and inflammatory reaction due to indwelling urethral catheter, initial encounter) Catheter associated urinary tract infection present on admission. Continue on IV ceftriaxone pending final urine culture result. Ordered: [facility] Hospital Care/Day Moderate 35 Minutes [id number] 3. 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 Present on admission. Seen by neurologist. I reviewed neurology consult. I appreciate and agree with recommendations. No need for neuroimaging with MRI or EEG. Patient was started on Keppra 500 mg twice daily and his buspirone was discontinued since it lowers seizure threshold. Ordered: [facility] Hospital Care/Day Moderate 35 Minutes [id number] 4. Involuntary movements (R25.9: Unspecified abnormal involuntary movements) Secondary to above seizure. Resolved. Ordered: [facility] Hospital Care/Day Moderate 35 Minutes [id number] 5. Minor head trauma (S09.90XA: Unspecified injury of head, initial encounter) Secondary to fall at the residential several days ago. Ordered: [facility] Hospital Care/Day Moderate 35 Minutes [id number] 6. Hypokalemia (E87.6: Hypokalemia) Mild hypokalemia. Replaced orally. Ordered: potassium chloride, 40 mEq = 2 tab(s), Tab-ER, Oral, Once, Stop date 04/25/25 8:00:00 EDT, Routine, Start date 04/25/25 8:00:00 EDT, 04/25/25 7:34:00 EDT 7. History of CVA in adulthood (Z86.73: Personal history of transient ischemic attack (TIA), and cerebral infarction without residual deficits) History of right-sided stroke with left hemiplegia. 8. Pancytopenia (D61.818: Other pancytopenia) Likely chronic. 9. Sinus bradycardia (R00.1: Bradycardia, unspecified) Secondary to metoprolol. Metoprolol temporarily on hold. 10. Hypertensive urgency (I16.0: Hypertensive urgency) Resolved. 11. Diabetes (E11.9: Type 2 diabetes mellitus without complications) Continue on long-acting insulin and sliding scale insulin. 12. Hyperlipidemia (E78.5: Hyperlipidemia, unspecified) On Lipitor. 13. Hyponatremia (E87.1: Hypo-osmolality and hyponatremia) Chronic. 14. Chronic GERD (K21.9: Gastro-esophageal reflux disease without esophagitis) Supportive care. 15. Encounter for deep vein thrombosis (DVT) prophylaxis (Z29.9: Encounter for prophylactic measures, unspecified) SCDs. Disposition: Back to half-way facility pending final urine culture results. I called and left a voice message for the patient's daughter. I discussed the diagnosis and plan of care with the patient at the bedside. Moderate. Level of MDM based on addressing above issues. This documentation was transcribed using voice recognition software. Several attempts were made to ensure accuracy. However inadvertent computerized business owner/engineer errors may be present. Wandy Woodruff. Hospitalist. Orders: gabapentin, 100 mg = 1 cap(s), Cap, Oral, Daily, Routine, Start date 04/26/25 9:00:00 EDT, 04/25/25 10:49:00 EDT pantoprazole, 40 mg, Tab-EC, Oral, Daily, Routine, Start date 04/26/25 9:00:00 EDT, 04/25/25 10:50:00 EDT Referral to Resource Center Extracted from: Title:Consult Note- Neurology Author:Susu Moreno RN Date:04/25/25 ASSESSMENT: 69-year-old man with history of a right temporal and right frontoparietal stroke (right MCA stroke) with resultant severe left spastic hemiparesis (nearly hemiplegia). I presume he had a post-stroke seizure. It sounds like he had a brief (minutes) focal motor seizure involving the left upper extremity, related to the cortical gliosis from his right MCA distribution strokes, specifically emanating from the right frontoparietal area (primary motor cortex). PLAN: 1. Start levetiracetam 500 mg twice daily 2. Stop the bupropion, dose is only 150 mg total daily but could be contributing to a lowered seizure threshold 3. He happens to be on a small dose of gabapentin already but not enough to be a significant antiepileptic medication 4. I do not think EEG or additional intracranial imaging will exchange trouble shooter 5. No other recommendations from a neurology standpoint 1. Acute encephalopathy (G93.40: Encephalopathy, unspecified) 2. Catheter-associated urinary tract infection (T83.511A: Infection and inflammatory reaction due to indwelling urethral catheter, initial encounter) 3. Involuntary movements (R25.9: Unspecified abnormal involuntary movements) 4. Minor head trauma (S09.90XA: Unspecified injury of head, initial encounter) 5. History of CVA in adulthood (Z86.73: Personal history of transient ischemic attack (TIA), and cerebral infarction without residual deficits) 6. Pancytopenia (D61.818: Other pancytopenia) 7. Sinus bradycardia (R00.1: Bradycardia, unspecified) 8. Hypertensive urgency (I16.0: Hypertensive urgency) 9. Diabetes (E11.9: Type 2 diabetes mellitus without complications) 10. Hyperlipidemia (E78.5: Hyperlipidemia, unspecified) 11. Hyponatremia (E87.1: Hypo-osmolality and hyponatremia) 12. Chronic GERD (K21.9: Gastro-esophageal reflux disease without esophagitis) 13. Encounter for deep vein thrombosis (DVT) prophylaxis (Z29.9: Encounter for prophylactic measures, unspecified) Urinary tract infection, site not specified (N39.0: Urinary tract infection, site not specified) Extracted from: Title:Admission H & P Author:Dionte COKER DO Date:04/25/25 1. Acute encephalopathy (G93 .40: Encephalopathy, unspecified) Potentially multifactorial with definitive component of UTI below, patient is hyponatremic that it is mild, there was question of seizure and history is uncertain (see below) in which case is possible patient presented a postictal state. With ecchymosis on his right forehead cannot rule out trauma related to either. I suspect patient is at his baseline. Await reconciliation of patient's meds at the [facility] care facility will be cautious with medications that can alter his mental status. To be complete especially with bradycardia will check thyroid function studies, check B12 zooming patient is on a PPI. Will consult with neurology see below Ordered: Consult to Neurology EEG TSH With T4fr Reflex Vitamin B12 Level 2. Catheter-associated urinary tract infection (T83.511A: Infection and inflammatory reaction due to indwelling urethral catheter, initial encounter) Awaiting urine culture, per the emergency department assistant the catheter was full of purulent material. Patient was given ceftriaxone patient is demonstrating no sepsis is not requiring ICU placement we therefore continue ceftriaxone pending cultures Ordered: ceftriaxone + Sodium Chloride 0.9% intravenous solution 50 mL, 1,000 mg = 1 EA, IV Piggyback, Daily, Routine, Start date 04/25/25 9:00:00 EDT, 100 mL/hr, Infuse over 30 minute(s), 04/25/25 4:20:00 EDT 3. Involuntary movements (R25.9: Unspecified abnormal involuntary movements) Patient states he had involuntary movement of the left upper extremity loss of consciousness without incontinence of bowel without tongue biting. ? If patient was experiencing rigors, question if patient was experiencing myoclonus. Will check an EEG with his history of falls and below and if demonstrating a seizure focus consider an MRI, we will consult with neurology to get an MRI it is their recommendation even if the EEG is negative Ordered: Consult to Neurology EEG 4. Minor head trauma (S09.90XA: Unspecified injury of head, initial encounter) Will observe for any change in mental status. Patient has had recent falls. Patient does have ecchymosis and a small hematoma right frontal region. Note CT of the head and the emergency department was negative 5. History of CVA in adulthood (Z86.73: Personal history of transient ischemic attack (TIA), and cerebral infarction without residual deficits) Patient was alert and oriented was a good historian, confirms what was in the chart that he had his CVA right hemispheric in September 2023. When asked him more than 1 occasion he suggested he has had no new focal deficits that the profound weakness and inability to use his left upper and left lower extremity is chronic and has had no change in sensation he still has in the left side. Await confirmation of antiplatelet I believe he is on Brilinta then we will resume 6. Pancytopenia (D61.818: Other pancytopenia) No prior labs for comparison. Will access records. Patient does have mild leukopenia likely the result of evolving infection. Note patient also has anemia with microcytic indices. Repeat CBC in the a.m. to assure stable on antiplatelet. Check iron studies and obtain occult stools while continuing PPI 7. Sinus bradycardia (R00.1: Bradycardia, unspecified) Potassium was within normal limits, will hold metoprolol while watching a heart rate 8. Hypertensive urgency (I16.0: Hypertensive urgency) The above regarding metoprolol. Await confirmation of meds 9. Diabetes (E11.9: Type 2 diabetes mellitus without complications) Patient receives basal insulin at night. Await confirmation of dosing use Humalog sliding scale 10. Hyperlipidemia (E78.5: Hyperlipidemia, unspecified) Continue atorvastatin 11. Hyponatremia (E87.1: Hypo-osmolality and hyponatremia) We have no prior labs for comparison this is mild we will monitor 12. Chronic GERD (K21.9: Gastro-esophageal reflux disease without esophagitis) Await confirmation of PPI 13. Encounter for deep vein thrombosis (DVT) prophylaxis (Z29.9: Encounter for prophylactic measures, unspecified) Use SCDs if hemoglobin is stable we will weigh the pros and cons of using prophylactic dosing of Lovenox Orders: acetaminophen, 650 mg = 2 tab(s), Tab, Oral, q6hr PRN Pain, Routine, Start date 04/25/25 4:22:00 EDT, 04/25/25 4:22:00 EDT ondansetron, 4 mg = 2 mL, Injection, IV Push, q6hr PRN Nausea, Routine, Start date 04/25/25 4:22:00 EDT, 04/25/25 4:22:00 EDT Basic Metabolic Panel Below the Knee Intermittent Pneumatic Compression Device Cardiac Monitoring Cardiac Monitoring CBC w/ Auto Diff Elevate Head of Bed Notify Provider Vital Signs Notify Provider Vital Signs Precautions Regular Diet Resuscitation Status - DNR CCA (Comfort Care Arrest) Vital Signs Weight Patient is admitted as general inpatient with anticipation he will require greater than 2 midnight stay I discussed CODE STATUS with the patient he states he is a DO NOT RESUSCITATE comfort care arrest Extracted from: Title:ED Note Author:Isai Mehta DO Date: Altered mental status (R41.8 2: Altered mental status, unspecified) Orders: Blood Culture Charcoal Blood Culture Charcoal CBC w/ Auto Diff Comprehensive Metabolic Panel Continuous Pulse Oximetry CT Head or Brain w/o Contrast ECG 12 Lead Adult ED Cardiac Monitoring Lactic Acid Lactic Acid Oxygen Therapy PT & PTT Saline Lock Insert Troponin UA with Cult Rflx XR Chest Single View Future Appointments Appointment Date:10/07/2025 03:00:00 PM Scheduled Provider:JAROCHO POST MD Location:[facility] [place] Appointment Type:URO Office Visit [facility] 07-03-2025 Hospital Discharge instructions Patient Education 04/28/2025 10:29:48 Toxic Metabolic Encephalopathy Toxic Metabolic Encephalopathy Toxic metabolic encephalopathy (TME) is a type of brain disorder caused by a change in brain chemistry. This condition may result from illnesses or conditions that cause an imbalance of fluid, minerals (electrolytes), and other substances in the body. This imbalance can affect the way the brain functions. The condition is not caused by brain damage or brain disease. TME can cause confusion and other mental disturbances, which are generally referred to as delirium.Untreated delirium may lead to permanent mental changes or worsening medical conditions. Untreated delirium is a life-threatening condition that may need to be treated in the hospital. What are the causes? Possible causes of TME that can lead to delirium include: High or low levels of any of the following substances in the blood: ?Calcium. ?Salt (sodium). ?Sugar (glucose). ?Magnesium. ?Phosphate. Not having enough oxygen in the blood. Changes in the acid level (pH) of the blood. Certain medicines, such as steroids, sedatives, sleeping aids, or pain medicines. High body temperature or certain infections. Dehydration. Short-term (acute) or long-term (chronic) disease of the kidney or liver. Low levels of B vitamins. This can result from alcohol abuse. What increases the risk? You are more likely to develop this condition if you: Have chronic medical problems, such as diabetes, liver disease, kidney disease, heart disease, or lung disease. Had recent surgery. Are in the hospital, especially in intensive care. Are elderly, have dementia, or live in a residential. Are not getting enough fluids. Have poor nutrition. Abuse alcohol or have alcohol withdrawal. What are the signs or symptoms? Symptoms of TME may include: Not being able to stay awake (drowsiness) or even loss of consciousness (coma). Shaking that you cannot control (tremors) or muscle twitching. Clumsiness or weakness. Seizures. Symptoms of delirium caused by TME include: Confusion, not knowing where you are (disorientation), poor judgment, memory loss, or poor attention and concentration. Decreased alertness. Changes in speech, such as saying things that do not make sense. Psychiatric symptoms, such as seeing or hearing things that are not real (hallucinations), false beliefs (delusions), or general mistrust of others (paranoia). Mood changes like depression, anxiety, irritability, or hyperactivity. Avoiding other people. Changes in eating and sleeping patterns. Delirium may come and go. Symptoms of delirium may start suddenly or gradually, and they often get worse at night. How is this diagnosed? This condition is diagnosed based on: Your symptoms and behavior. An exam to check how you are thinking, feeling, and behaving (mental status exam). To diagnose delirium, the mental status exam must rule out other possible causes of TME, and it must show: ?Changes in attention and awareness. ?Changes that develop over a short period of time and tend to come and go. ?Changes in memory, language, and thinking that were not present before. A physical exam and medical history. Imaging tests, such as an MRI or a CT scan. Blood tests to: ?Measure liver and kidney function. ?Check B vitamin levels. ?Check for changes in acid levels (pH) and changes in calcium, sodium, or magnesium levels in the blood. ?Measure your blood glucose. ?Measure your blood oxygen level. How is this treated? Treatment for TME depends on the cause, and it may include: Getting fluids through an IV. Regulating calcium, sodium, glucose, or magnesium levels in the body. Getting oxygen. Improving nutrition. Treating liver or kidney disease. Adjusting certain medicines. Treating infections. If the cause is found and treated, delirium usually improves. Managing delirium may include: Keeping the room well-lit and quiet. Using calendars, pictures, and clocks to prevent disorientation. Having frequent checks from nursing staff and visits from caregivers. Wearing eyeglasses or a hearing aid, if needed. Physical therapy. Medicine to treat agitation, anxiety, hallucinations, or delusions. Follow these instructions at home: Medicines Take kgob-hhy-ykzajho and prescription medicines only as told by your health care provider. Do not start taking any new medicines, including kenm-dyz-uwejccs medicines, without first checkingwith your health care provider. Eating and drinking Drink enough fluid to keep your urine pale yellow. Follow a healthy diet. Do not skip meals. Do not drink alcohol. General instructions Go to bed at the same time every night. Return to your normal activities as told by your health care provider. Ask your health care provider what activities are safe for you. Keep all follow-up visits. This is important. Contact a health care provider if: You have a fever. You are unable to feed yourself or hydrate yourself. You start to feel clumsy. You start to have tremors or weakness. Get help right away if: You have a seizure. You lose consciousness. You have trouble breathing. You feel unable to care for yourself at home. You become disoriented at home. These symptoms may represent a serious problem that is an emergency. Do not wait to see if the symptoms will go away. Get medical help right away. Call your local emergency services (911 in the [place] Do not drive yourself to the hospital. Summary Toxic metabolic encephalopathy (TME) is a brain disorder that may result from illnesses or conditions that cause an imbalance of fluid, minerals (electrolytes), and other substances in the body that affect the way the brain functions. Your health care provider will diagnose TME based on your symptoms, behavior, physical exam and medical history, imaging, and blood tests. Your health care provider will also do an exam to check how you are thinking, feeling, and behaving(mental status exam). TME is treated by identifying and correcting the underlying cause. This information is not intended to replace advice given to you by your health care provider. Make sure you discuss any questions you have with your health care provider. Document Revised: 07/31/2021 Document Reviewed: 07/31/2021 [employer] Patient Education 2023 [employer]. Follow Up Care 04/24/2025 20:08:07 With:Follow-up with your urologist as soon as possible for Cyr catheter replacement Address:Unknown When:3 to 5 days Comments:Call for followup appointment With:ELEAZAR MAYORGA Address: [address] [place] [address] Business (1) When:2 to 3 days With:Neurology Address: When:2 to 4 weeks Comments:Call [phone] for follow up appt [facility] 07-03-2025 NoteDischarge Summary Admission and Discharge Information Admit Date/Time:04/25/2025 00:22 Admitting Physician - Dionte COKER DO Consulting Physician - Eduar Lawrence MD Admitting Diagnoses: 1. Acute encephalopathy, 04/25/2025 4. Involuntary movements, 04/25/2025 6. Hypokalemia, 04/25/2025 Discharge Order Date Discharge Patient - Ordered -- 04/28/25 10:30:00 EDT, [facility] Discharge Diagnoses 1. Acute encephalopathy, 04/25/2025 2. Catheter-associated urinary tract infection, 04/25/2025 3. Seizure, grand mal, 04/25/2025 4. Involuntary movements, 04/25/2025 5. Minor head trauma, 04/25/2025 6. Hypokalemia, 04/25/2025 7. History of CVA in adulthood, 04/25/2025 8. Pancytopenia, 04/25/2025 9. Sinus bradycardia, 04/25/2025 10. Hypertensive urgency, 04/25/2025 11. Diabetes, 04/25/2025 12. Hyperlipidemia, 04/25/2025 13. Hyponatremia, 04/25/2025 14. Chronic GERD, 04/25/2025 15. Encounter for deep vein thrombosis (DVT) prophylaxis, 04/25/2025 Procedure History History of operative procedure on knee, History of repair of musculotendinous cuff of shoulder. Hospital Course 69-year-old residential male resident with history of cerebrovascular accident with left-sided hemiplegia, pancytopenia, sinus bradycardia, hypertension, insulin-dependent diabetes mellitus type 2, hyperlipidemia, chronic hyponatremia, GERD, chronic indwelling Cyr catheter secondary to BPH presented from the half-way facility because of change in mental status and seizure. He was subsequently admitted to [facility] with acute metabolic encephalopathy secondary to catheter associated MRSA, Providencia urinary tract infection, postictal secondary to new onset poststroke seizure, minor head injury and hypokalemia. He was initially treated with IV fluid, IV ceftriaxoneand potassium chloride supplements. Urine cultures isolated MRSA and Providencia and antibiotics were switched to IV meropenem and IV vancomycin. He was seen in consultation by the neurologist. Neuroimaging including CT scan of the brain did not show any acute pathology. Neurologist recommended starting patient on Keppra 500 mg twice daily and discontinuing buspirone because of lowering seizure threshold. There was no reported seizure in the hospital. Patient's overall condition improved and acute metabolic encephalopathy resolved and [facility] Urine cultures isolated procidentia and MRSA both sensitive to Bactrim. I spoke with infectious disease specialist who advised to treat patient with Bactrim DS for 5 days. Discharge time: 35 minutes. I spent 35 minutes in seeing, evaluating, educating patient on his conditions, coordinating care plan, medication reconciliation, speaking with nursing staff, case management, pharmacist and consultants. Discharge medications: Bactrim DS 1 tablet twice daily x 5 days. Services Consulted Consult to Dietitian Adult - Ordered -- 04/25/25 2:09:34 EDT Consult to Neurology - Ordered -- 04/25/25 4:21:00 EDT, acute encephalopathy,?seizure,hx of CVA, Consult and Co-manage Physical Exam Vitals & Measurements T: 36.7 ???C(Oral) TMIN: 36.7 ???C(Oral) TMAX: 36.8 ???C(Oral) HR: 69(Apical) RR: 17 BP: 134/74 SpO2: 98% WT: 94.1 kg General: alert, no acute distress, comfortable in bed on room air. Right frontal resolving ecchymosis. Skin: warm, dry Head: no trauma, normocephalic Neck: Trachea midline, no adenopathy, no tenderness Eye: normal conjunctiva, sclera clear ENMT: TM's clear, oral mucosa moist, no pharyngeal erythema or exudate Cardiovascular: regular rate and rhythm, normal peripheral perfusion Respiratory: Lungs CTA, respirations non labored Chest wall: no deformity. Gastrointestinal: soft, non distended, no tenderness, no guarding. Bowel sounds intact. Genitourinary: Cyr catheter in place and draining urine. Back: No tenderness, Normal ROM, Normal alignment. Extremities: no deformity, no trauma Neurological: oriented x 4, LOC appropriate for age, CN II-XII intact, left hemiplegia. Psychiatric: cooperative, affect appropriate for age, normal judgement, normal psychiatric thoughts. Tests Performed CT Head or Brain w/o Contrast XR Chest Single View Discharge Plan Patient Discharge Condition Stable Discharge Disposition Discharge To, Anticipated II - Correction Unit Discharged to - assisted unit Transported by, Anticipated - EMS SNF, [facility] Discharge Diet Discharge Diet(s): Calorie Controlled- 1800 Calorie Diet, Other: Drink at least 1.5 L of fluid per day (04/28/25 10:26:00) Discharge Medication List Prescriptions Bactrim D.S. 800 mg-160 mg Tab, 1 tab(s), Oral, BID Keppra 500 mg Tab, 500 mg= 1 tab(s), Oral, BID Home acetaminophen 325 mg Tab, 325 mg= 1 tab(s), Oral, q8hr Admelog SoloStar 100 units/mL injectable solution, Not taking Admelog SoloStar 100 units/mL injectable solution, 1 unit(s), SubCutaneous as (more content not included)...[facility] Result Comment: Electronically Signed By: SUKH TOWNSEND, Daciafo\.br\Date and Time Signed: 04/28/25 11:59 [id number] NoteProgress Note - Pharmacy Vancomycin Pharmacy to Dose Consult Note Indication: UTI Goal Range: AUC/CAROLIN: 400 - 600 RECOMMENDATIONS/ PLAN: Pharmacy consulted for vancomycin dosing for VASHTI MASSEY, a 69 Years old, Male who is being treated with vancomycin for UTI. 1. Vancomycin therapy has been discontinued. Vancomycin level(s) have been discontinued: Pharmacy vancomycin dosing service will sign off. Thank you for allowing us to participate in this patient's care. Please contact pharmacy if there are questions.[facility]07[facility] NoteProgress Note-Physician Assessment/Plan 69-year-old residential male resident with history of cerebrovascular accident with left-sided hemiplegia, pancytopenia, sinus bradycardia, hypertension, diabetes mellitus, hyperlipidemia, chronic hyponatremia, GERD, chronic indwelling Cyr catheter presented from the half-way facility because of change in mental status and seizures and was admitted with acute metabolic encephalopathy secondary to catheter associated MRSA, Providencia urinary tract infection, postictal secondary to newonset post stroke seizure and minor head trauma. 1. Acute encephalopathy (G93.40: Encephalopathy, unspecified) Acute metabolic encephalopathy???multifactorial???secondary to catheter associated urinary tract infection and postictal Resolved. Patient is back to his baseline mentation. Seen by neurologist. Ordered: [facility] Hospital Care/Day Moderate 35 Minutes [id number] 2. Catheter-associated urinary tract infection (T83.511A: Infection and inflammatory reaction due to indwelling urethral catheter, initial encounter) Catheter associated MRSA and Providencia urinary tract infection???present on admission. Continue treated with IV meropenem and vancomycin. Will speak with infectious disease specialist to see if we can convert to oral Bactrim at discharge. Ordered: [facility] Hospital Care/Day Moderate 35 Minutes [id number] 3. 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 Seen by neurologist. Patient was started on Keppra 500 mg twice daily. Buspirone was discontinued because of lowering seizure threshold. Ordered: [facility] Hospital Care/Day Moderate 35 Minutes 72901 4. Involuntary movements (R25.9: Unspecified abnormal involuntary movements) Secondary to above seizure. Resolved. Ordered: [facility] Hospital Care/Day Moderate 35 Minutes 42751 5. Minor head trauma (S09.90XA: Unspecified injury of head, initial encounter) Secondary to fall at residential several days prior to presentation. Ordered: [facility] Hospital Care/Day Moderate 35 Minutes 11652 6. Hypokalemia (E87.6: Hypokalemia) Resolved. 7. History of CVA in adulthood (Z86.73: Personal history of transient ischemic attack (TIA), and cerebral infarction without residual deficits) History of right-sided stroke with left hemiplegia. 8. Pancytopenia (D61.818: Other pancytopenia) Chronic. 9. Sinus bradycardia (R00.1: Bradycardia, unspecified) Secondary to metoprolol. Resolved. 10. Hypertensive urgency (I16.0: Hypertensive urgency) Resolved. Continue on metoprolol. 11. Diabetes (E11.9: Type 2 diabetes mellitus without complications) Continue on long-acting and short acting insulin. 12. Hyperlipidemia (E78.5: Hyperlipidemia, unspecified) On Lipitor. 13. Hyponatremia (E87.1: Hypo-osmolality and hyponatremia) Chronic. 14. Chronic GERD (K21.9: Gastro-esophageal reflux disease without esophagitis) Supportive care. 15. Encounter for deep vein thrombosis (DVT) prophylaxis (Z29.9: Encounter for prophylactic measures, unspecified) SCDs. Disposition: Back to half-way facility soon. I discussed the diagnosis and plan of care with the patient at the bedside. Moderate level of MDM based on addressing above issues. This documentation was transcribed using voice recognition software. Several attempts were made to ensure accuracy. However inadvertent computerized business owner/engineer errors may be present. Wandy Woodruff. Hospitalist. Orders: meropenem + Sodium Chloride 0.9% intravenous solution 50 mL, 1,000 mg = 1 EA, Powder-Inj, IV Piggyback, q8hrFT, NOW, Start date 04/27/25 16:03:00 EDT, 100 mL/hr, Infuse over 30 minute(s) metoprolol, 50 mg = 1 tab(s), Tab-ER, Oral, Daily, Routine, Start date 04/28/25 9:00:00 EDT, 04/27/25 10:01:00 EDT vancomycin + Generic Diluent 350 mL, 1,750 mg = 350 mL, Soln-IV, IV Piggyback, q12hr, Start date 04/27/25 21:00:00 EDT, 175 mL/hr, Infuse over 2 hour(s) Vancomycin Level Peak Vancomycin Level Trough Subjective Seen and examined. Offers no new complaints today. Doing well. Objective Vitals & Measurements T: 36.7 ???C(Oral) TMIN: 36.7 ???C(Oral) TMAX: 36.8 ???C(Oral) HR: 79(Monitored) RR: 17 BP: 142/81 SpO2: 98% WT: 94.1 kg Intake & Output This visit (24 hour periods starting at 07:00 EDT) 04/28/25 * 04/27/25 04/26/25 Total Summary Intake mL -- 1,647.96 896.42 Output mL -- 425 825 Fluid Balance -- 1,222.96 71.42 Intake (6) Generic Diluent, levetiracetam mL -- 88.61 189.37 Generic Diluent, vancomycin mL -- 340.49 266.6 Oral Intake mL -- 1,176 390 Sodium Chloride 0.9%, ceftriaxone mL -- -- 50.45 Sodium Chloride 0.9%, meropenem mL -- 41.86 -- morphine mL -- 1 -- Total -- 1,647.96 896.42 Output (1) Urine Catheter mL -- 425 825 Total -- 425 825 Counts (1) (more content not included)...[facility]:Result Comment: Electronically Signed By: SUKH TOWNSEND, Daciafo\.br\Date and Time Signed: 04/28/25 08:59 [id number] NoteProgress Note - Nutrition 5-day screen: Chart thoroughly reviewed. 69 y/o M. Admitting diagnosis of Acute encephalopathy, UTI, and grand mal seizure. Remains on a Regular diet. Good appetite. Per EMR, eating ~75-100% meals. One meal recorded as 0% on 04/26 noted. Skin intact. Localized edema. Weight hx reviewed. Acceptable BMI of 27.04. No N/V/D reported. Awaiting d/c. No nutrition assessment indicated at this time. [facility]07-02-2025 NoteProgress Note - Pharmacy Indication: Other:UTI coag positve urine Goal Range:AUC/CAROLIN: 400 - 600 RECOMMENDATIONS PLAN: Pharmacy consulted for vancomycin dosing for VASHTI MASSEY, a 69 Years, Male who is being treated with vancomycin for coag positive urine 1. VANCO STATUS Vancomycin therapy is still active, today is day 1 of treatment. Patient Patient has coag positive urine cx, alerted provider wanted to start vanco for MRSA concern/potential 2 . VANCO LEVEL _New start 3. DOSING RECS _Will give 1750 mg q12hr for estimated AUC ~490 4. NEXT LEVELThe next paired levels are schedule. Peak at 2200 on 04/27 and Trough at 0600 on 04/28. 5. MRSA NASAL SWAB _not appropriate We will follow patient renal function, vancomycin levels and doses with you during the course of therapy. Additional recommendations will appear in follow up notes. If you have any question please contact pharmacy. Age: 69 Years Allergies: No Known Medication Allergies Weight Last Documented Weight and Type of Scale Used Last Documented Weight Weight Measured: 93.1 kg (04/26/25 06:00:00) Type of Scale Used Weight Measured Type of Scale: Bed Scale (digital) (04/25/25 03:32:00) Height Last Documented Height/Length Last Documented Height/Length Height/Length Measured: 93.7 cm (04/25/25 03:32:00) CrCl: 98 mL/min Labs: Glucose Cap: 125 mg/dL High (04/26/25 16:44:00) POC Device SN: [id number] (04/26/25 16:44:00) POC User ID: [id number] (04/26/25 16:44:00) POC Username: [email or web address] [email or web address] (04/26/25 16:44:00) morning dose on 04/27 given late due to lack of IV access; retimed subsequent doses and labs. Peak due @ 00:00 73 and Trough @ 08:00 [facility] NoteProgress Note-Physician Assessment/Plan 69-year-old residential male resident with history of cerebrovascular accident with left-sided hemiplegia, pancytopenia, sinus bradycardia, hypertension, diabetes mellitus, hyperlipidemia, chronic hyponatremia, GERD, chronic indwelling Cyr catheter presented from the half-way facility because of change in mental status and seizures and was admitted with acute metabolic encephalopathy secondary to catheter associated urinary tract infection, postictal secondary to new onset post strokeseizure and minor head trauma. 1. Acute encephalopathy (G93.40: Encephalopathy, unspecified) Acute metabolic encephalopathy???multifactorial???secondary to catheter associated urinary tract infection and postictal Resolved. Patient is back to his baseline mentation. Seen by neurologist. Ordered: [facility] Hospital Care/Day Moderate 35 Minutes 76916 2. Catheter-associated urinary tract infection (T83.511A: Infection and inflammatory reaction due to indwelling urethral catheter, initial encounter) Catheter associated Staphylococcus and gram-negative tania urinary tract infection???present on admission. Expanded IV antibiotics to ceftriaxone and vancomycin pending final urine culture results. Ordered: [facility] Hospital Care/Day Moderate 35 Minutes [id number] 3. 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 Seen by neurologist. Patient was started on Keppra 500 mg twice daily. Buspirone was discontinued because of lowering seizure threshold. Ordered: [facility] Hospital Care/Day Moderate 35 Minutes 36717 4. Involuntary movements (R25.9: Unspecified abnormal involuntary movements) Secondary to above seizure. Resolved. Ordered: [facility] Hospital Care/Day Moderate 35 Minutes 59450 5. Minor head trauma (S09.90XA: Unspecified injury of head, initial encounter) Secondary to fall at residential several days prior to presentation. 6. Hypokalemia (E87.6: Hypokalemia) Resolved. 7. History of CVA in adulthood (Z86.73: Personal history of transient ischemic attack (TIA), and cerebral infarction without residual deficits) History of right-sided stroke with left hemiplegia. 8. Pancytopenia (D61.818: Other pancytopenia) Chronic. 9. Sinus bradycardia (R00.1: Bradycardia, unspecified) Secondary to metoprolol. Resolved. 10. Hypertensive urgency (I16.0: Hypertensive urgency) Resolved. Continue on metoprolol. 11. Diabetes (E11.9: Type 2 diabetes mellitus without complications) Continue on long-acting and short acting insulin. 12. Hyperlipidemia (E78.5: Hyperlipidemia, unspecified) On Lipitor. 13. Hyponatremia (E87.1: Hypo-osmolality and hyponatremia) Chronic. 14. Chronic GERD (K21.9: Gastro-esophageal reflux disease without esophagitis) Supportive care. 15. Encounter for deep vein thrombosis (DVT) prophylaxis (Z29.9: Encounter for prophylactic measures, unspecified) SCDs. Disposition: Back to half-way facility pending final urine culture result. I discussed the diagnosis and plan of care with the patient at the bedside. Moderate level of MDM based on addressing above issues. This documentation was transcribed using voice recognition software. Several attempts were made to ensure accuracy. However inadvertent computerized business owner/engineer errors may be present. Wandy Woodruff. Hospitalist. Orders: metoprolol, 50 mg = 1 tab(s), Tab-ER, Oral, Daily, Routine, Start date 04/28/25 9:00:00 EDT, 04/27/25 10:01:00 EDT morphine, 2 mg = 1 mL, Injection, IV Push, q6hr PRN Pain for 5 day(s), Stop date 05/02/25 8:23:00 EDT, NOW, Start date 04/27/25 8:24:00 EDT, 04/27/25 8:24:00 EDT vancomycin, PHARMACY TO DOSE, Injection, IV, As Directed, Routine, Start date 04/26/25 17:04:00 EDT vancomycin + Generic Diluent 350 mL, 1,750 mg = 350 mL, Soln-IV, IV Piggyback, q12hr, Start date 04/26/25 19:00:00 EDT, 175 mL/hr, Infuse over 2 hour(s) Education Fall Risk Vancomycin Level Peak Vancomycin Level Trough Subjective Seen and examined. Offers no new complaints. Only complains of pain at IV site. Objective Vitals & Measurements T: 36.8 ???C(Oral) TMIN: 36.4 ???C(Axillary) TMAX: 37.3 ???C(Axillary) HR: 66(Monitored) RR: 16 BP:132/80 SpO2: 95% WT: 92.4 kg Intake & Output This visit (24 hour periods starting at 07:00 EDT) 04/27/25 * 04/26/25 04/25/25 Total Summary Intake mL 1 896.37 590 Output mL -- 825 -- Fluid Balance 1 71.37 590 Intake (5) Generic Diluent, levetiracetam mL -- 189.37 -- Generic Diluent, vancomycin mL -- 266.55 -- Oral Intake mL -- 390 540 Sodium Chloride 0.9%, ceftriaxone mL -- 50.45 50 morphine mL 1 -- -- Total 1 896.37 590 Output (1) Urine Catheter mL -- 825 -- Total -- 825 -- Counts (1) Stool Count -- 3 -- * This column has not co (more content not included)...[facility]Comment on [facility]:Result Comment: Electronically Signed By: SUKH TOWNSEND, [email or web address]\.br\Date and Time Signed: 04/27/25 10:04 [id number] NoteProgress Note - Pharmacy Indication: Other:UTI coag positve urine Goal Range:AUC/CAROLIN: 400 - 600 RECOMMENDATIONS PLAN: Pharmacy consulted for vancomycin dosing for VASHTI MASSEY, a 69 Years, Male who is being treated with vancomycin for coag positive urine 1. VANCO STATUS Vancomycin therapy is still active, today is day 1 of treatment. Patient Patient has coag positive urine cx, alerted provider wanted to start vanco for MRSA concern/potential 2 . VANCO LEVEL _New start 3. DOSING RECS _Will give 1750 mg q12hr for estimated AUC ~490 4. NEXT LEVELThe next paired levels are schedule. Peak at 2200 on 04/27 and Trough at 0600 on 04/28. 5. MRSA NASAL SWAB _not appropriate We will follow patient renal function, vancomycin levels and doses with you during the course of therapy. Additional recommendations will appear in follow up notes. If you have any question please contact pharmacy. Age: 69 Years Allergies: No Known Medication Allergies Weight Last Documented Weight and Type of Scale Used Last Documented Weight Weight Measured: 93.1 kg (04/26/25 06:00:00) Type of Scale Used Weight Measured Type of Scale: Bed Scale (digital) (04/25/25 03:32:00) Height Last Documented Height/Length Last Documented Height/Length Height/Length Measured: 93.7 cm (04/25/25 03:32:00) CrCl: 98 mL/min Labs: Glucose Cap: 125 mg/dL High (04/26/25 16:44:00) POC Device SN: [id number] (04/26/25 16:44:00) POC User ID: [id number] (04/26/25 16:44:00) POC Username: [email or web address] [email or web address] (04/26/25 16:44:00)[facility] 04-[facility]25 NoteProgress Note-Physician Assessment/Plan 69-year-old residential male resident with history of cerebrovascular accident with left-sided hemiplegia, pancytopenia, sinus bradycardia, hypertension, diabetes mellitus, hyperlipidemia, chronic hyponatremia, GERD, chronic indwelling Cyr catheter presented from the half-way facility because of change in mental status and seizures and was admitted with acute metabolic encephalopathy secondary to catheter associated urinary tract infection, postictal secondary to new onset post strokeseizure and minor head trauma. 1. Acute encephalopathy (G93.40: Encephalopathy, unspecified) Acute metabolic encephalopathy???multifactorial???secondary to catheter associated urinary tract infection and postictal. Fluctuating. Approaching baseline. Seen by neurologist. Ordered: [facility] Hospital Care/Day Moderate 35 Minutes [id number] 2. Catheter-associated urinary tract infection (T83.511A: Infection and inflammatory reaction due to indwelling urethral catheter, initial encounter) Catheter associated urinary tract infection???present on admission. Treating with IV ceftriaxone pending final urine culture result. Ordered: [facility] Hospital Care/Day Moderate 35 Minutes 36672 3. 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 Seen by neurologist. Patient was started on Keppra 500 mg twice daily. Buspirone was discontinued because of lowering seizure threshold. Ordered: [facility] Hospital Care/Day Moderate 35 Minutes 01528 4. Involuntary movements (R25.9: Unspecified abnormal involuntary movements) Secondary to above seizure. Resolved. Ordered: [facility] Hospital Care/Day Moderate 35 Minutes 66412 5. Minor head trauma (S09.90XA: Unspecified injury of head, initial encounter) Secondary to fall at residential several days prior to presentation. Ordered: [facility] Hospital Care/Day Moderate 35 Minutes 75009 6. Hypokalemia (E87.6: Hypokalemia) Replaced. 7. History of CVA in adulthood (Z86.73: Personal history of transient ischemic attack (TIA), and cerebral infarction without residual deficits) History of right-sided stroke with left hemiplegia. 8. Pancytopenia (D61.818: Other pancytopenia) Chronic. 9. Sinus bradycardia (R00.1: Bradycardia, unspecified) Secondary to metoprolol. Resolved. Will resume metoprolol. 10. Hypertensive urgency (I16.0: Hypertensive urgency) Resolved. On metoprolol. 11. Diabetes (E11.9: Type 2 diabetes mellitus without complications) On long-acting and short acting insulin. 12. Hyperlipidemia (E78.5: Hyperlipidemia, unspecified) On Lipitor. 13. Hyponatremia (E87.1: Hypo-osmolality and hyponatremia) Chronic. 14. Chronic GERD (K21.9: Gastro-esophageal reflux disease without esophagitis) Supportive care. 15. Encounter for deep vein thrombosis (DVT) prophylaxis (Z29.9: Encounter for prophylactic measures, unspecified) SCDs. Disposition: Back to half-way facility pending final urine culture result. I discussed the diagnosis and plan of care with the patient at the bedside. Moderate level of MDM based on addressing above issues. This documentation was transcribed using voice recognition software. Several attempts were made to ensure accuracy. However inadvertent computerized business owner/engineer errors may be present. Wandy Woodruff. Hospitalist. Orders: bisacodyl, 10 mg = 1 supp, Supp, Rectal, Once, Stop date 04/25/25 15:00:00 EDT, Routine, Start date04/25/25 15:00:00 EDT, 04/25/25 14:18:00 EDT gabapentin, 100 mg = 1 cap(s), Cap, Oral, Daily, Routine, Start date 04/26/25 9:00:00 EDT, 04/25/2510:49:00 EDT levetiracetam + Generic Diluent 100 mL, 500 mg = 100 mL, Soln-IV, IV Piggyback, BID, Routine, Startdate 04/26/25 10:00:00 EDT, 400 mL/hr, Infuse over 15 minute(s) pantoprazole, 40 mg = 1 tab(s), Tab-DR, Oral, Daily, Routine, Start date 04/26/25 9:00:00 EDT [employer] Comment Education Fall Risk Precautions Urinary Catheter Care Subjective Seen and examined. Offers no complaints today. Objective Vitals & Measurements T: 36.7 ???C(Axillary) TMIN: 35.7 ???C(Axillary) TMAX: 36.9 ???C(Oral) HR: 95(Monitored) RR: 18 BP:130/63 SpO2: 94% WT: 93.1 kg Intake & Output This visit (24 hour periods starting at 07:00 EDT) 04/26/25 * 04/25/25 04/24/25 Total Summary Intake mL -- 590 -- Output mL -- -- 1,100 Fluid Balance -- 590 -1,100 Intake (2) Oral Intake mL -- 540 -- Sodium Chloride 0.9%, ceftriaxone mL -- 50 -- Total -- 590 -- Output (1) Urine Catheter mL -- -- 1,100 Total -- -- 1,100 Counts (0) * This column has not completed the indicated time period. Physical Exam General: Sleepy, though arousable. Skin: warm, dry Head: no trauma, normocephalic right frontal ecchymosis. Neck: Trachea midline, no adenopathy, no (more content not included)...[facility] on [facility]:Result Comment: Electronically Signed By: SUKH TOWNSEND, Wandy\.br\Date and Time Signed: 04/26/25 09:38 [id number] Note Progress Note-Physician Assessment/Plan 69-year-old residential male resident with history of cerebrovascular accident with left-sided hemiplegia, pancytopenia, sinus bradycardia, hypertension, diabetes mellitus, hyperlipidemia, chronic hyponatremia, GERD, chronic indwelling Cyr catheter presented from the half-way facility because of change in mental status and seizures and was admitted with acute metabolic encephalopathy secondary to catheter associated urinary tract infection, postictal secondary to new onset post strokeseizure and minor head trauma. 1. Acute encephalopathy (G93.40: Encephalopathy, unspecified) Acute metabolic encephalopathy???multifactorial???secondary to catheter associated urinary tract infection and postictal. Resolved. Patient is back to his baseline mentation. Treating underlying disease process. Neurology consult reviewed by me. I appreciate and agree with recommendations. Ordered: [facility] Hospital Care/Day Moderate 35 Minutes [id number] 2. Catheter-associated urinary tract infection (T83.511A: Infection and inflammatory reaction due to indwelling urethral catheter, initial encounter) Catheter associated urinary tract infection???present on admission. Continue on IV ceftriaxone pending final urine culture result. Ordered: [facility] Hospital Care/Day Moderate 35 Minutes [id number] 3. 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 Present on admission. Seen by neurologist. I reviewed neurology consult. I appreciate and agree with recommendations. No need for neuroimaging with MRI or EEG. Patient was started on Keppra 500 mg twice daily and his buspirone was discontinued since it lowersseizure threshold. Ordered: [facility] Hospital Care/Day Moderate 35 Minutes [id number] 4. Involuntary movements (R25.9: Unspecified abnormal involuntary movements) Secondary to above seizure. Resolved. Ordered: [facility] Hospital Care/Day Moderate 35 Minutes 73252 5. Minor head trauma (S09.90XA: Unspecified injury of head, initial encounter) Secondary to fall at the residential several days ago. Ordered: [facility] Hospital Care/Day Moderate 35 Minutes 40004 6. Hypokalemia (E87.6: Hypokalemia) Mild hypokalemia. Replaced orally. Ordered: potassium chloride, 40 mEq = 2 tab(s), Tab-ER, Oral, Once, Stop date 04/25/25 8:00:00 EDT, Routine,Start date 04/25/25 8:00:00 EDT, 04/25/25 7:34:00 EDT 7. History of CVA in adulthood (Z86.73: Personal history of transient ischemic attack (TIA), and cerebral infarction without residual deficits) History of right-sided stroke with left hemiplegia. 8. Pancytopenia (D61.818: Other pancytopenia) Likely chronic. 9. Sinus bradycardia (R00.1: Bradycardia, unspecified) Secondary to metoprolol. Metoprolol temporarily on hold. 10. Hypertensive urgency (I16.0: Hypertensive urgency) Resolved. 11. Diabetes (E11.9: Type 2 diabetes mellitus without complications) Continue on long-acting insulin and sliding scale insulin. 12. Hyperlipidemia (E78.5: Hyperlipidemia, unspecified) On Lipitor. 13. Hyponatremia (E87.1: Hypo-osmolality and hyponatremia) Chronic. 14. Chronic GERD (K21.9: Gastro-esophageal reflux disease without esophagitis) Supportive care. 15. Encounter for deep vein thrombosis (DVT) prophylaxis (Z29.9: Encounter for prophylactic measures, unspecified) SCDs. Disposition: Back to half-way facility pending final urine culture results. I called and left a voice message for the patient's daughter. I discussed the diagnosis and plan of care with the patient at the bedside. Moderate. Level of MDM based on addressing above issues. This documentation was transcribed using voice recognition software. Several attempts were made to ensure accuracy. However inadvertent computerized business owner/engineer errors may be present. Wandy Woodruff. Hospitalist. Orders: gabapentin, 100 mg = 1 cap(s), Cap, Oral, Daily, Routine, Start date 04/26/25 9:00:00 EDT, 04/25/2510:49:00 EDT pantoprazole, 40 mg, Tab-EC, Oral, Daily, Routine, Start date 04/26/25 9:00:00 EDT, 04/25/25 10:50:00 EDT Referral to [facility] Subjective Seen and examined. Offers no new complaints today. Objective Vitals & Measurements T: 36.7 ???C(Oral) TMIN: 36.7 ???C(Oral) TMAX: 36.8 ???C(Oral) HR: 59(Monitored) RR: 18 BP: 137/77 SpO2: 98% HT: 93.7 cm WT: 177.80 kg Intake & Output This visit (24 hour periods starting at 07:00 EDT) 04/25/25 * 04/24/25 04/23/25 Total Summary Intake mL -- -- -- Output mL -- 1,100 -- Fluid Balance -- -1,100 -- Intake (0) Output (1) Urine Catheter mL -- 1,100 -- Total -- 1,100 -- Counts (0) * This column has not completed the indicated time period. Physical Exam General: alert, no acute distress, laying comfortably in bed. Right frontal ecchymosis. Skin: warm, dry Head (more content not included)...[facility] Result Comment: Electronically Signed By: SUKH TOWNSEND, Wandy\.br\Date and Time Signed: 04/25/25 10:54 [id number] NoteConsultation Note Chief Complaint witnessed seizure by [facility] staff approximately 45 seconds Reason for Consultation acute encephalopathy, ? seizure, hx CVA History of Present Illness From the H&P: 69-year-old male who I was asked to see in neurological consultation for alteredmental status/seizure. Patient is a resident at [facility]. He has been noted to have some falls over the last few days. He was seen at [facility] yesterday per EMS for a fall and had CT imaging performed which was normal. Patient was confused throughout the day today. He is normally alert and oriented x 4 although near flaccid on his left side due to a previous stroke per report. EMS was told that the patient had what appeared to be a 45-second seizure today. He was confused afterwards. He has no history of seizure. N right handed man. o overnight events and no new complaints this morning. He describes the left upper extremity as involuntarily shaking with irregular rhythm for a few minutes, during which he maintained consciousness and awareness. CT head personally reviewed and it shows right temporal and right frontoparietal encephalomalacia. Review of Systems GEN: No fevers or chills. CV/PULM: No chest pain. No shortness of breath. No palpitations. NEURO: No headaches. No loss of vision. No double vision. No dysphagia. No speech changes. Yes chronic focal weakness. No sensory loss. Physical Exam Vitals & Measurements T: 36.8 ???C(Oral) TMIN: 36.7 ???C(Oral) TMAX: 36.8 ???C(Oral) HR: 55(Monitored) RR: 18 BP: 157/72 SpO2: 93% HT: 93.7 cm WT: 177.80 kg GEN: General appearance normal. Well-kempt. No distress. No visualized deformities or trauma. CARDIO/VASC: Limbs without significant edema and appear well-perfused. PULM: Normal work of breathing. SKIN: Visualized skin is intact and without lesions aside from age-related findings. MS: Affect is normal. Patient is alert. Normal attention. LANG: Speech is intelligible, seems mostly fluent and with minimal dysarthria. EYES: Pupils appear equal. Ocular motility full. No pathologic nystagmus. Rightward gaze preference, without forced deviation. CN: Facial sensation normal. Hearing acuity normal. No major facial weakness. MOTOR: Muscle bulk normal. Muscle tone greatly increased in left upper extremity more so than left lower extremity. Flexion contracture at the left elbow. Spastic tone in left limbs. Trace movement of left fingers, otherwise seems to be +0/5 throughout the left upper extremity. Left lower extremityseems to be about +1 to +2/5 throughout. No tremors. SENSORY: Light touch is intact CEREBELLAR: No limb in the right limbs. Assessment/Plan ASSESSMENT: 69-year-old man with history of a right temporal and right frontoparietal stroke (right MCA stroke)with resultant severe left spastic hemiparesis (nearly hemiplegia). I presume he had a post-stroke seizure. It sounds like he had a brief (minutes) focal motor seizureinvolving the left upper extremity, related to the cortical gliosis from his right MCA distributionstrokes, specifically emanating from the right frontoparietal area (primary motor cortex). PLAN: 1. Start levetiracetam 500 mg twice daily 2. Stop the bupropion, dose is only 150 mg total daily but could be contributing to a lowered seizure threshold 3. He happens to be on a small dose of gabapentin already but not enough to be a significant antiepileptic medication 4. I do not think EEG or additional intracranial imaging will exchange trouble shooter 5. No other recommendations from a neurology standpoint 1. Acute encephalopathy (G93.40: Encephalopathy, unspecified) 2. Catheter-associated urinary tract infection (T83.511A: Infection and inflammatory reaction due to indwelling urethral catheter, initial encounter) 3. Involuntary movements (R25.9: Unspecified abnormal involuntary movements) 4. Minor head trauma (S09.90XA: Unspecified injury of head, initial encounter) 5. History of CVA in adulthood (Z86.73: Personal history of transient ischemic attack (TIA), and cerebral infarction without residual deficits) 6. Pancytopenia (D61.818: Other pancytopenia) 7. Sinus bradycardia (R00.1: Bradycardia, unspecified) 8. Hypertensive urgency (I16.0: Hypertensive urgency) 9. Diabetes (E11.9: Type 2 diabetes mellitus without complications) 10. Hyperlipidemia (E78.5: Hyperlipidemia, unspecified) 11. Hyponatremia (E87.1: Hypo-osmolality and hyponatremia) 12. Chronic GERD (K21.9: Gastro-esophageal reflux disease without esophagitis) 13. Encounter for deep vein thrombosis (DVT) prophylaxis (Z29.9: Encounter for prophylactic measures, unspecified) Urinary tract infection, site not specified (N39.0: Urinary tract infection, site not specified) Problem List/Past Medical History Ongoing Anemia Anticoagulated Arthritis of right knee At risk for falls BPH with urinary obstruction Cerebral atherosclerosis Chronic kidney disease Complex renal cyst (more content not included)...[facility] Comment on above:Result Comment: Electronically Signed By: Susu Moreno RN\.br\Date and Time Signed: 04/25/25 07:17 EDT\.br\Electronically Co-Signed By: Collin Bess DO\.br\Date and Time Co-Signed: 04/25/25 10:30 [id number] Note History and Physical Basic Information Admit Date/Time:04/25/2025 00:22 Chief Complaint witnessed seizure by [facility] staff approximately 45 seconds History of Present Illness Patient is a 69-year-old pleasant gentleman resident of the [facility] was told by the emergency department physician because of concern for status change/seizure. Per discussion with emergency department physician EMS suspected a 45-minute seizure but did not provide details presentation was uncertain. Patient was his usual alert and oriented x 4 some confusion. In the emergency department patient was felt to not be at baseline had leukopenia with purulent drainage from his Cyr catheter which is chronically indwelling. Per review of chart and prior records namely from urology and confirmed with patient at bedside he does have a history of cerebrovascular accident was right hemispheric in September 2023, he does have hypertension, hyperlipidemia, chart suggest a history of ventricular tachycardia he cannot recall this, he doeshave diabetes and he does have GERD. Asking patient what resulted in his presentation today he responded below Patient states I had a seizure the other day . He confirmed that he was discussing the date of presentation i.e. late on 24 April when asked him to describe he suggested his paretic on the left was shaking. He did not have any tongue biting he did not have any incontinence of stool. He denies any confusion he feels he was aware during the entire episode. I did ask him questions of orientation I believe he is back to baseline full without hesitation he told me he was at [facility] by coming from [place] he was able to identify the year, the president and able to do simple math. He confirmedhis above past medical history as well. I asked if he has had any new numbness in either his left upper extremity left lower extremity he states he still has sensation in those extremities he denied this and he denied any new focal deficits confirming the degree of weakness it was noted at the bedside in his left upper extremity left lower extremity is his baseline. He denied any visual disturbance, denied any speech disturbance, denied any palpitations chest pain or shortness of breath. He denies any fevers or chills. I did receive a report that patient has had recent falls and he does have ecchymosis in the right frontal region. Review of Systems Constitutional: no fever, no chills, s Skin: no Jaundice, no rash, ENMT: no ear pain, no sore throat, no congestion, no hoarseness Respiratory: no shortness of breath, no cough, no orthopnea, no wheezing Cardiovascular: no chest pain, no palpitations, no edema Gastrointestinal: no nausea, no vomiting, no diarrhea, no GI bleeding Genitourinary: Patient has a chronic indwelling Cyr catheter Musculoskeletal: no back pain, no trauma Neurologic: no headache, no dizziness, no numbness, nonew weakness Psychiatric: no sleeping problems, no irritability Heme/Lymph: no bleeding tendency, no bruising tendency, no petechiae, no swollen nodes Allergy/Immunologic: no seasonal allergies, no food allergies, ? recurrent infections, chronic indwelling Cyr catheter no impaired immunity Additional ROS info: Except as noted in the above Review of Systems and in the History of Present Illness all other systems have been reviewed and are negative or noncontributory. Scoring Cortez Fall Risk Score: 60 High (04/25/25) Physical Exam Vitals & Measurements T: 36.8 ???C(Oral) TMIN: 36.7 ???C(Oral) TMAX: 36.8 ???C(Oral) HR: 53(Apical) RR: 18 BP: 127/69 SpO2: 93% HT: 93.7 cm WT: 177.80 kg Lab Results WBC: 3.9 E9/L Low (04/24/25 21:07:00) RBC: 4.8 E12/L (04/24/25 21:07:00) HGB: 11.8 gm/dL Low (04/24/25 21:07:00) Hct: 34.9 % Low (04/24/25 21:07:00) MCV: 72.4 fL Low (04/24/25 21:07:00) MCH: 24.5 pg Low (04/24/25:07:00) MCHC: 33.8 gm/dL (04/24/25 21:07:00) RDW: 20.4 % High (04/24/25 21:07:00) Platelet: 267 E9/L (04/24/25 21:07:00) MPV: 6.7 fL (04/24/25 21:07:00) Neutro Auto: 60 % (04/24/25 21:07:00) Lymph Auto: 30.2 % (04/24/25 21:07:00) Crawford Auto: 6.4 % (04/24/25 21:07:00) Eos Auto: 2.3 % (04/24/25 21:07:00) Basophil Auto: 1.1 % (04/24/25 21:07:00) Neutro Absolute: 2.3 E9/L (04/24/25 21:07:00) Lymph Absolute: 1.2 E9/L (04/24/25 21:07:00) Crawford Absolute: 0.2 E9/L (04/24/25 21:07:00) Eos Absolute: 0.1 E9/L (04/24/25 21:07:00) Basophil Absolute: 0 E9/L (04/24/25 21:07:00) RBC Morph: SEE MORPHOLOGY (04/24/25 21:07:00) Anisocytosis: PRESENT (04/24/25 21:07:00) Microcyte: PRESENT (04/24/25 21:07:00) Poikilocytosis: PRESENT (04/24/25 21:07:00) PT: 12.2 second(s) (04/24/25 21:07:00) INR: 1.09 (04/24/25:07:00) PTT: 32.9 second(s) (04/24/25 21:07:00) Glucose Lvl: 183 mg/dL (04/24/25 21:07:00) BUN: 18 mg/dL (04/24/25 21:07:00) Creatinine: 0.6 mg/dL (04/24/25:07:00) eGFR: 103 mL/min/1.73 m2 (04/24/25 21:07:00) BUN/Cre (more content not included)...[facility]:Result Comment: Electronically Signed By: Dionte COKER DO\Mannbr\Date and Time Signed: 04/25/25 04:25 [id number] Hospital Discharge instructions Patient Education 04/15/2025 10:21:10 Benign Prostatic Hyperplasia Benign Prostatic Hyperplasia Benign prostatic hyperplasia (BPH) is an enlarged prostate gland that is caused by the normal agingprocess. The prostate may get bigger as a man gets older. The condition is not caused by cancer. The prostate is a walnut-sized gland that is involved in the production of semen. It is located in front of the rectum and below the bladder. The bladder stores urine. The urethra carries stored urine ou t of the body. An enlarged prostate can press on the urethra. This can make it harder to pass urine. The buildup of urine in the bladder can cause infection. Back pressure and infection may progress to bladder damage and kidney (renal) failure. What are the causes? This condition is part of the normal aging process. However, not all men develop problems from thiscondition. If the prostate enlarges away from the [...] urethra. Follow these instructions at home: Take [id number]-[id number] and prescription medicines only as told by [...] provider. Document Revised: 05/01/2022 Document Reviewed: 05/01/2022 [employer] Patient Education 2023 [employer]. Follow Up Care 01/07/2025 11:38:32 With:JAROCHO POST MD, URL Address: When: Unknown [facility] Eileen 06-20-2025 NotePatient Education Urology Benign Prostatic Hyperplasia Benign prostatic hyperplasia (BPH) is an enlarged prostate gland that is caused by the normal agingprocess. The prostate may get bigger as a man gets older. The condition is not caused by cancer. The prostate is a walnut-sized gland that is involved in the production of semen. It is located in front of the rectum and below the bladder. The bladder stores urine. The urethra carries stored urine ou t of the body. An enlarged prostate can press on the urethra. This can make it harder to pass urine. The buildup of urine in the bladder can cause infection. Back pressure and infection may progress to bladder damage and kidney (renal) failure. What are the causes? This condition is part of the normal aging process. However, not all men develop problems from thiscondition. If the prostate enlarges away from the [...] this procedure, a tool is inserted through theopening at the tip of the penis (urethra). [...] procedure uses radio frequencies to destroy and removea small amount of prostate tissue. ? Interstitial laser coagulation (ILC). This procedure uses a laser to destroy and remove a small amount of prostate tissue. ? Transurethral electrovaporization (TUVP). This procedure uses electrodes to destroy and remove a small amount of prostate tissue. ? Prostatic urethral lift. This procedure inserts an implant to push the lobes of the prostate awayfrom the urethra. Follow these instructions at home: ??? Take vccg-mvv-rhncksb and prescription medicines only as told by [...] symptoms do not get (more content not included)...[facility]03-28-[facility] NoteUT Cardiology [facility] Subjective Vashti Massey is a 69 y.o. year old male patient being seen for follow up Cardiac MRI and event monitor. Patient Active Problem List Diagnosis acute respiratory disease Acute renal failure with acute renal cortical necrosis superimposed on stage 3a chronic kidney disease (CMS/HCC) AMS (altered mental status) Anemia Anticoagulated Arthritis of right knee Blurred vision BPH with urinary obstruction Cerebral atherosclerosis Cerebrovascular accident (CVA) due to occlusion of right middle cerebral artery (CMS/HCC) Acute ischemic stroke (CMS/HCC) Cholesterolosis of gallbladder Chronic indwelling Cyr catheter Chronic kidney disease Complex renal cyst Constipation Essential hypertension Gait instability Gross hematuria Hematuria History of UTI Hx of completed stroke Hyponatremia Mixed hyperlipidemia Other hypertrophic cardiomyopathy (CMS/HCC) Other visual disturbances SAH (subarachnoid hemorrhage) (CMS/HCC) Sequelae, post-stroke Stroke-like symptoms Syncope and collapse Traumatic cerebral edema with unknown loss of consciousness status (CMS/HCC) Type 2 diabetes mellitus (CMS/HCC) Type 2 diabetes mellitus with hyperglycemia, with long-term current use of insulin (CMS/HCC) Unsteadiness on feet Ventricular tachycardia (CMS/HCC) Weakness Family History Problem Relation Name Age of Onset No Known Problems Mother No Known Problems Father Heart attack Paternal Grandmother Social History Tobacco Use Smoking status: Every Day Current packs/day: 1.00 Types: Cigarettes Smokeless tobacco: Never Substance Use Topics Alcohol use: Never STONE Vashti is seen in follow-up. This is the first time I am meeting him. He used to follow with Dr. Zuñiga in our group. He is a 69-year-old man with prior medical history of hyperlipidemia, hypertension and cerebrovascular accident (in 2022 with full recovery, another one right MCA distribution in March 2024 with residual left sided paralysis due to right MCA severe stenosis). During admission for stroke he had severe anemia and required transfusion. He has diabetes. He was evaluated in our office for palpitations. An echocardiogram showed severe septal hypertrophy but no obstructive physiology. there was concern for possible hypertrophic cardiomyopathy. Holter monitor showed 1 episode of NSVT consisting of 7 beats. He underwent a cardiac MRI to further investigate the ventricular hypertrophy seen on echocardiography. At most recent visit on 12/08/2024 he reported an episode of syncope while sitting on the dining table. A 30-day event monitor was ordered. He is currently on aspirin, brilinta, atorvastatin and metoprolol. Today he reports that he has been doing well. He does not have chest pain, shortness of breath or palpitations. He has not had any syncopal episodes following that initial event around October 2024. He and his daughter explained to me that he was sitting at the dining table and suddenly lost consciousness. He was placed in a lying position and quickly recovered consciousness. Review of Systems All other systems reviewed and are negative. Objective Visit Vitals BP 117/68 (BP Location: Right arm, Patient Position: Sitting) Pulse 63 Ht 1.778 m (5' 10 ) Wt 86.2 kg (190 lb) SpO2 96% BMI 27.26 kg/m??? Smoking Status Every Day BSA 2.06 m??? Physical Exam Constitutional: Appearance: He is well-developed. He is not ill-appearing. HENT: Head: Normocephalic and atraumatic. Nose: Nose normal. Eyes: General: No scleral icterus. Pupils: Pupils are equal, round, and reactive to light. Neck: Thyroid: No thyromegaly. Vascular: No JVD. Cardiovascular: Rate and Rhythm: Normal rate and regular rhythm. Pulses: Radial pulses are 2+ on the right side and 2+ on the left side. Heart sounds: Normal heart sounds. No murmur heard. No friction rub. No gallop. Pulmonary: Effort: Pulmonary effort is normal. No respiratory distress. Breath sounds: Normal breath sounds. No wheezing or rales. Chest: Chest wall: No tenderness. Abdominal: General: Bowel sounds are normal. There is no distension. Palpations: Abdomen is soft. Tenderness: There is no abdominal tenderness. Musculoskeletal: General: No swelling. Cervical back: Neck supple. Skin: General: Skin is warm and dry. Neurological: General: No focal deficit present. Mental Status: He is alert and oriented to person, place, and time. Motor: Weakness (left sided) present. Psychiatric: Mood and Affect: Mood normal. Behavior: Behavior is cooperative. Judgment: Judgment normal. Allergies No Known Allergies Medications Current Outpatient Medications: acetaminophen (Tylenol) 500 mg tablet, Take 1,000 mg by mouth every 8 (eight) hours if needed., Disp: , Rfl: aspirin 81 mg EC tablet, Take 81 mg by mouth in the morning., Disp (more content not included)...[facility]03-14-2025 NotePatient Education Urology Hematuria, Adult Hematuria is blood in the urine. Blood may be visible in the urine, or it may be identified with a test. This condition can be caused by infections of the bladder, urethra, kidney, or prostate. Otherpossible causes include: ??? Kidney stones. ??? Cancer of the urinary tract. ??? Too much calcium in the urine. ??? Conditions that are passed from parent to child (inherited conditions). ??? Exercise that requires a lot of energy. Infections can usually be treated with medicine, and a kidney stone usually will pass through your urine. If neither of these is the cause of your hematuria, more tests may be needed to identify the cause of your symptoms. It is very important to tell your health care provider about any blood in your urine, even if it ispainless or the blood stops without treatment. Blood in the urine, when it happens and then stops and then happens again, can be a symptom of a very serious condition, including cancer. There is no pain in the initial stages of many urinary cancers. Follow these instructions at home: Medicines ??? Take okee-mbo-zcicazm and prescription medicines only as told by your health care provider. ??? If you were prescribed an antibiotic medicine, take it as told by your health care provider. Donot stop taking the antibiotic even if you start to feel better. Eating and drinking ??? Drink enough fluid to keep your urine pale yellow. It is recommended that you drink 3?4 quarts (2.8?3.8 L) a day. If you have been diagnosed with an infection, drinking cranberry juice in addition to large amounts of water is recommended. ??? Avoid caffeine, tea, and carbonated beverages. These tend to irritate the bladder. ??? Avoid alcohol because it may irritate the prostate (in males). General instructions ??? If you have been diagnosed with a kidney stone, follow your health care provider's instructionsabout straining your urine to catch the stone. ??? Empty your bladder often. Avoid holding urine for long periods of time. ??? If you are female: ? After a bowel movement, wipe from front to back and use each piece of toilet paper only once. ? Empty your bladder before and after sex. ??? Pay attention to any changes in your symptoms. Tell your health care provider about any changesor any new symptoms. ??? It is up to you to get the results of any tests. Ask your health care provider, or the department that is doing the test, when your results will be ready. ??? Keep all follow-up visits. This is important. Contact a health care provider if: ??? You develop back pain. ??? You have a fever or chills. ??? You have nausea or vomiting. ??? Your symptoms do not improve after 3 days. ??? Your symptoms get worse. Get help right away if: ??? You develop severe vomiting and are unable to take medicine without vomiting. ??? You develop severe pain in your back or abdomen even though you are taking medicine. ??? You pass a large amount of blood in your urine. ??? You pass blood clots in your urine. ??? You feel very weak or like you might faint. ??? You faint. Summary ??? Hematuria is blood in the urine. It has many possible causes. ??? It is very important that you tell your health care provider about any blood in your urine, even if it is painless or the blood stops without treatment. ??? Take odan-eep-ulnjtiw and prescription medicines only as told by your health care provider. ??? Drink enough fluid to keep your urine pale yellow. This information is not intended to replace advice given to you by your health care provider. Make sure you discuss any questions you have with your health care provider. Document Revised: 06/13/2021 Document Reviewed: 06/13/2021 [employer] Patient Education ? 2023 [facility] History of Present illness Narrative* Tori Vargas RN - 12/28/2024 8:00 AM EST Radiology Service Progress Note DATE OF SERVICE: December 28, 2024 TIME: 8:37 AM PATIENT WEIGHT: 190 LBS PATIENT IDENTITY VERIFICATION COMPLETED USING TWO (2) STANDARD IDENTIFIERS: Name and Date of confirmed by patient verbally and Name and Date of confirmed by identification band. FALL SCREENING: Has the patient had 2 falls in the last year or 1 fall with injury or currently using an Ambulatory Assistive Device (Walker, Cane, Wheelchair, Crutches, etc.)? Yes, Patient High Riskfor Falls What interventions were put in place to prevent falls during this visit? Yellow Falls Risk Wristband Applied, Instructed Patient to Call for Help if Needed, Offered Assistance with Transfers/Clothing, Instructed Patient to Remain Seated (Not on Exam Table) Until Exam, and Increased Observations by Caregivers PATIENT GENDER DATA: Assigned male at ALLERGIES: Reviewed and unchanged CONTRAST ALLERGY: No EXAM: MRI - CONTRAST TYPE: GROUP II IV SITE: Ambulatory: A peripheral IV was started in the Right forearm with a Angio cath: 22 gauge. and A Saline lock was inserted per protocol IV SITE APPEARANCE: Clean,Dry and Intact SIGNATURE: Tori Vargas RN PATIENT NAME: Vashti Massey DATE: December 28, 2024 TIME: 8:37 AM * Guerita Griggs RT(R) - 12/28/2024 8:00 AM EST Radiology Service Progress Note PATIENT NAME: Vashti Massey DATE OF SERVICE: December 28, 2024 TIME: 8:59 AM PATIENT IDENTITY VERIFICATION COMPLETED USING TWO (2) IDENTIFIERS: Name and Date of confirmedby patient verbally. FALL SCREENING: Has the patient had 2 falls in the last year or 1 fall with injury or currently using an Ambulatory Assistive Device (Walker, Cane, Wheelchair, Crutches, etc.)? Yes, Patient High Riskfor Falls What interventions were put in place to prevent falls during this visit? Increased Observations by Caregivers and pt gene paz PATIENT GENDER DATA: Assigned male at PATIENT RELEVANT IMPLANT DATA REVIEWED: Yes PATIENT PRESENTS WITH AN IMPLANTABLE OR ATTACHED SCREEN STRETCHER: No RADIOLOGY DEPARTMENT: MR; Exam(s) Completed: Cardiac: Cardiac PERIPHERAL IV DATA: Site assessment: Clean,Dry and Intact, Site disposition Discontinued SIGNED BY: RT Rod(Darvin) December 28, 2024 8:59 AM documented [facility] NoteHNO ID: [id number] Author: TORI VARGAS RN Service: Radiology Author Type: Registered Nurse Type: Progress Notes Filed: 12/28/2024 08:40 Note Text: Radiology Service Progress Note DATE OF SERVICE: December 28, 2024 TIME: 8:37 AM PATIENT WEIGHT: 190 LBS PATIENT IDENTITY VERIFICATION COMPLETED USING TWO (2) STANDARD IDENTIFIERS: Name and Date of confirmed by patient verbally and Name and Date of confirmed by identification band. FALL SCREENING: Has the patient had 2 falls in the last year or 1 fall with injury or currently using an Ambulatory Assistive Device (Walker, Cane, Wheelchair, Crutches, etc.)? Yes, Patient High Risk for Falls What interventions were put in place to prevent falls during this visit? Yellow Falls Risk Wristband Applied, Instructed Patient to Call for Help if Needed, Offered Assistance with Transfers/Clothing, Instructed Patient to Remain Seated (Not on Exam Table) Until Exam, and Increased Observations by Caregivers PATIENT GENDER DATA: Assigned male at ALLERGIES: Reviewed and unchanged CONTRAST ALLERGY: No EXAM: MRI - CONTRAST TYPE: GROUP II IV SITE: Ambulatory: A peripheral IV was started in the Right forearm with a Angio cath: 22 gauge. and A Saline lock was inserted per protocol IV SITE APPEARANCE: Clean,Dry and Intact SIGNATURE: Tori Vargas RN PATIENT NAME: Vashti Massey DATE: December 28, 2024 TIME: 8:37 [facility]03-04-2025 NoteHNO ID: [id number] Author: GUERITA GRIGGS RT(R) Service: Radiology Author Type: Wine Steward Type: Progress Notes Filed: 12/28/2024 09:01 Note Text: Radiology Service Progress Note PATIENT NAME: Vashti Massey DATE OF SERVICE: December 28, 2024 TIME: 8:59 AM PATIENT IDENTITY VERIFICATION COMPLETED USING TWO (2) IDENTIFIERS: Name and Date of confirmed by patient verbally. FALL SCREENING: Has the patient had 2 falls in the last year or 1 fall with injury or currently using an Ambulatory Assistive Device (Walker, Cane, Wheelchair, Crutches, etc.)? Yes, Patient High Risk for Falls What interventions were put in place to prevent falls during this visit? Increased Observations by Caregivers and pt gene lift PATIENT GENDER DATA: Assigned male at PATIENT RELEVANT IMPLANT DATA REVIEWED: Yes PATIENT PRESENTS WITH AN IMPLANTABLE OR ATTACHED SCREEN STRETCHER: No RADIOLOGY DEPARTMENT: MR; Exam(s) Completed: Cardiac: Cardiac PERIPHERAL IV DATA: Site assessment: Clean,Dry and Intact, Site disposition Discontinued SIGNED BY: RT Rod(R) December 28, 2024 8:59 [facility]02-12-2025 NoteCardiology Clinic Note HPI: Vashti Massey is a 69 y.o. male who has a past medical history of Abnormal ECG, Arrhythmia, Hyperlipidemia, Hypertension, and Stroke (CMS/HCC). that was referred to Cardiology clinic for evaluation of palpitations. Patient reports symptoms of palpitations, which have been ongoing for months per patient report. He denied any additional cardiac complaints or concerns. No chest pain. No lower extremity edema, orthopnea, or PND. No additional complaints or concerns. Patient had testing performed by his PCP. Echo demonstrated severe septal hypertrophy, concerning for possible hypertrophic cardiomyopathy. Holter demonstrated one episode of NSVT at 7 beats. Cardiac MRI was ordered to rule out HCM. Patient returns today for follow up. He has not yet done MRI. He reportedly had an episode of syncope recently while at facility while sitting at the dining table at [facility]. Daughter states PCP told them it was orthostatic hypotension. She states this was an isolated incident. He's scheduled for cardiac MRI at [facility] in a few weeks. Denies chest pain, SOB, and palpitations. No recurrent syncope. ROS 10 point ROS is performed and [...] 40 mg by mouth in the morning. finasteride (Proscar) 5 mg tablet Take 5 mg by mouth in the morning. gabapentin (Neurontin) 100 mg capsule Take 100 mg by mouth 3 times a day. insulin lispro (Admelog SoloStar U-100 Insulin) 100 unit/mL injection pen 3 mL, 0 Refill(s), Refills(s) 0 lamoTRIgine (LaMICtal) 25 mg tablet Take 25 mg by mouth in the morning. Lantus Solostar U-100 Insulin 100 unit/mL (3 mL) injection pen ADMINISTER 15 UNITS UNDER THE SKIN AT BEDTIME magnesium hydroxide (Milk of Magnesia) 400 mg/5 mL suspension Take 30 mL by mouth. metoprolol succinate XL (Toprol-XL) 50 mg 24 hr tablet Take 1 tablet (50 mg) by mouth in the morning. Do not crush or chew. 90 tablet 3 pantoprazole (ProtoNix) 40 mg EC tablet sennosides-docusate sodium (Marilin-Colace) 8.6-50 mg tablet Take 1 tablet by mouth in the morning. tamsulosin (Flomax) 0.4 mg 24 hr capsule 0.4 mg in the morning. ticagrelor (Brilinta) 90 mg tablet Take 90 mg by mouth two times daily. traZODone (Desyrel) 50 mg tablet Take 75 mg by mouth in the morning. [DISCONTINUED] hydrOXYzine HCL (Atarax) 25 mg tablet Take 25 mg by mouth 1 (one) time. [DISCONTINUED] Lantus U-100 Insulin 100 unit/mL injection vial Inject 15 Units under the skin in the morning. [DISCONTINUED] melatonin 3 mg tablet Take 6 mg by mouth in the morning. No current facility-administered medications on file prior to visit. Allergies Patient has no known allergies. Physical Exam VITAL SIGNS: Ht 1.778 m (5' 10 ) Wt 90.3 kg (199 lb) BMI 28.55 kg/m??? Constitutional: Well developed, Well nourished, No [...] Massey is a 69 y.o. male with Palpitations (more content not included)...[facility]01-13-2025 Hospital Discharge instructions Patient Education 11/08/2024 09:50:23 Benign Prostatic Hyperplasia Benign Prostatic Hyperplasia Benign prostatic hyperplasia (BPH) is an enlarged prostate gland that is caused by the normal agingprocess. The prostate may get bigger as a man gets older. The condition is not caused by cancer. The prostate is a walnut-sized gland that is involved in the production of semen. It is located in front of the rectum and below the bladder. The bladder stores urine. The urethra carries stored urine ou t of the body. An enlarged prostate can press on the urethra. This can make it harder to pass urine. The buildup of urine in the bladder can cause infection. Back pressure and infection may progress to bladder damage and kidney (renal) failure. What are the causes? This condition is part of the normal aging process. However, not all men develop problems from thiscondition. If the prostate enlarges away from the [...] urethra. Follow these instructions at home: Take voqr-ybk-bbonhju and prescription medicines only as told by [...] provider. Document Revised: 05/01/2022 Document Reviewed: 05/01/2022 [employer] Patient Education 2023 [employer]. Follow Up Care 11/01/2024 13:12:14 With:JAROCHO POST MD, VAN Address: When: Unknown Comments:Appointment has already been scheduled [facility] 01-13-2025 NotePatient Education Urology Benign Prostatic Hyperplasia Benign prostatic hyperplasia (BPH) is an enlarged prostate gland that is caused by the normal agingprocess. The prostate may get bigger as a man gets older. The condition is not caused by cancer. The prostate is a walnut-sized gland that is involved in the production of semen. It is located in front of the rectum and below the bladder. The bladder stores urine. The urethra carries stored urine ou t of the body. An enlarged prostate can press on the urethra. This can make it harder to pass urine. The buildup of urine in the bladder can cause infection. Back pressure and infection may progress to bladder damage and kidney (renal) failure. What are the causes? This condition is part of the normal aging process. However, not all men develop problems from thiscondition. If the prostate enlarges away from the [...] this procedure, a tool is inserted through theopening at the tip of the penis (urethra). [...] procedure uses radio frequencies to destroy and removea small amount of prostate tissue. ? Interstitial laser coagulation (ILC). This procedure uses a laser to destroy and remove a small amount of prostate tissue. ? Transurethral electrovaporization (TUVP). This procedure uses electrodes to destroy and remove a small amount of prostate tissue. ? Prostatic urethral lift. This procedure inserts an implant to push the lobes of the prostate awayfrom the urethra. Follow these instructions at home: ??? Take pose-zcv-jkcmhix and prescription medicines only as told by [...] symptoms do not get (more content not included)...[facility]01-07-2025 History of Present illness Narrative* Suellen Cooper MD PhD - 11/02/2024 9:45 AM EST Subjective Patient ID: Vashti Massey is a 69 y.o. male who presents for No chief complaint on file.. 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 Echo demonstrated severe septal hypertrophy, concerning for possible hypertrophic cardiomyopathy. Holter demonstrated one episode of NSVT at 7 beats. Either stationary sludge or polyps / nodules seen on RUQ US 10/[address] 10/02, over 2 cm. Will likely need MRI but claims to be allergic to MRI dye. Completely asymptomatic. Review of Systems Objective Physical Exam Constitutional: Appearance: He is ill-appearing. HENT: Head: Atraumatic. Nose: Nose normal. Mouth/Throat: Mouth: Mucous membranes are moist. Cardiovascular: Rate and Rhythm: Normal rate and regular rhythm. Pulmonary: Effort: Pulmonary effort is normal. Breath sounds: Normal breath sounds. Abdominal: General: There is no distension. Palpations: Abdomen is soft. Tenderness: There is no guarding or rebound. Comments: Small umbilical hernia. No RUQ tenderness. No scars. Skin: General: Skin is warm. Neurological: Mental Status: He is alert. Mental status is at baseline. Motor: Weakness present. Gait: Gait abnormal. Psychiatric: Mood and Affect: Mood normal. Thought Content: Thought content normal. Judgment: Judgment normal. Assessment/Plan Problem List Items Addressed This Visit None Visit Diagnoses Codes Gallbladder polyp K82.4 Relevant Orders MR liver wo IV contrast MR without contrast. If positive for polyp will discuss lap amairani. Likely inpatient. Came from SNF. Suellen Cooper MD PhD 11/02/24 9:50 AM documented in this [facility] Work Phone: 1(578) 502-635201-07-2025 History of Present illness Narrative* Sarah Villareal MD - 11/02/2024 9:30 AM EST Subjective History of Present Illness: Vashti Massey is a 69 y.o. male with PMH significant for ECF with PMH of HTN, HLD, T2DM, CVA,BPH, presents to GI clinic for evaluation of abnormal RUQ imaging. Was in the ER and found to have RUQ which demonstrated mural nodules measuring upto 27 mm. No evidence of malignancy, no CBD dilation. CT was consistent with RUQ US findings. Endorses being chronically constipated, not response to senna, docustate, miralax. Had benefit from fleets enemas in the past. Currently having BM every few days with difficulty. Colonoscopy 04/19 demonstrated 15 mm polyp s/p EMR and another 5 mm transverse colon polyps. Past Medical History has a past medical history of Anemia, Anxiety, BPH (benign prostatic hyperplasia), Bursitis, Chronic indwelling Cyr catheter, Depression, Hemiplegia affecting left nondominant side (Multi), Historyof CVA with residual deficit, chronic kidney disease, Hyperlipidemia, Hypertension, Insulin dependent type 2 diabetes mellitus (Multi), and Osteoarthritis. Social History reports that he has been smoking cigarettes. He started smoking about 66 years ago. He has a 33 pack-year smoking history. He has been exposed to tobacco smoke. He has never used smokeless tobacco. He reports that he does not currently use alcohol. He reports that he does not use drugs. Family History family history includes Brain cancer in his father; Cancer in his mother and sister; Stroke in his maternal grandmother. Allergies No Known Allergies Medications Current Outpatient Medications Medication Instructions aspirin 81 mg, Daily atorvastatin (LIPITOR) 40 mg, Nightly gabapentin (NEURONTIN) 100 mg, 3 times daily insulin lispro 100 unit/mL injection 3 times daily (morning, midday, late afternoon) Lantus U-100 Insulin 15 Units, Nightly magnesium hydroxide (Milk of Magnesia) 400 mg/5 mL suspension 5 mL, Daily PRN magnesium oxide (MAG-OX) 400 mg, Daily melatonin (MELATIN) 6 mg, Nightly metoprolol succinate XL (TOPROL-XL) 50 mg, Daily [START ON 11/13/2024] nicotine (Nicoderm CQ) 14 mg/24 hr patch 1 patch, transdermal, Daily nicotine (Nicoderm CQ) 21 mg/24 hr patch 1 patch, transdermal, Daily [START ON 11/27/2024] nicotine (Nicoderm CQ) 7 mg/24 hr patch 1 patch, transdermal, Daily pantoprazole (PROTONIX) 40 mg, Daily before breakfast polyethylene glycol (GLYCOLAX, MIRALAX) 17 g, Daily sennosides (Senokot) 8.6 mg tablet 2 tablets, Daily sennosides-docusate sodium (Marilin-Colace) 8.6-50 mg tablet 1 tablet, Nightly tamsulosin (FLOMAX) 0.4 mg, Nightly ticagrelor (BRILINTA) 90 mg, 2 times daily traZODone (DESYREL) 25 mg, Nightly Objective Visit Vitals BP 88/52 Pulse 61 Physical Exam Vitals reviewed. Constitutional: General: He is awake. Pulmonary: Effort: Pulmonary effort is normal. Breath sounds: Normal breath sounds. Neurological: Mental Status: He is alert and oriented to person, place, and time. Psychiatric: Attention and Perception: Attention and perception normal. Behavior: Behavior normal. Assessment/Plan Vashti Massey is a 69 y.o. male who presents to GI clinic for evaluation abnormal gb imaging and chronic constipation. Will prescribe linzess as he has had a recent colonoscopy negative for masses/strictures and has failed multiple medical therapies. RTC in 3 months. Reviewed prior colonoscopy reports, imaging from ER including us and CT. Dicussed imaging with Dr. Shore. Will facilitate same day clinic visit with him to discuss cholecystectomy. Endoscopically no options exist for the management of gb nodules. Sarah Villareal MD documented in this [facility] Work Phone: 1(855) 435-574412-30-2024 Hospital Discharge instructions Patient Education 10/25/2024 11:18:58 Benign Prostatic Hyperplasia Benign Prostatic Hyperplasia Benign prostatic hyperplasia (BPH) is an enlarged prostate gland that is caused by the normal agingprocess. The prostate may get bigger as a man gets older. The condition is not caused by cancer. The prostate is a walnut-sized gland that is involved in the production of semen. It is located in front of the rectum and below the bladder. The bladder stores urine. The urethra carries stored urine ou t of the body. An enlarged prostate can press on the urethra. This can make it harder to pass urine. The buildup of urine in the bladder can cause infection. Back pressure and infection may progress to bladder damage and kidney (renal) failure. What are the causes? This condition is part of the normal aging process. However, not all men develop problems from thiscondition. If the prostate enlarges away from the [...] urethra. Follow these instructions at home: Take esse-krb-lsoayhh and prescription medicines only as told by [...] provider. Document Revised: 05/01/2022 Document Reviewed: 05/01/2022 [employer] Patient Education 2023 [employer]. Follow Up Care 10/12/2024 13:12:51 With:JAROCHO POST MD, URL Address: When: Unknown [facility] 12-30-2024 NotePatient Education Urology Benign Prostatic Hyperplasia Benign prostatic hyperplasia (BPH) is an enlarged prostate gland that is caused by the normal agingprocess. The prostate may get bigger as a man gets older. The condition is not caused by cancer. The prostate is a walnut-sized gland that is involved in the production of semen. It is located in front of the rectum and below the bladder. The bladder stores urine. The urethra carries stored urine ou t of the body. An enlarged prostate can press on the urethra. This can make it harder to pass urine. The buildup of urine in the bladder can cause infection. Back pressure and infection may progress to bladder damage and kidney (renal) failure. What are the causes? This condition is part of the normal aging process. However, not all men develop problems from thiscondition. If the prostate enlarges away from the [...] this procedure, a tool is inserted through theopening at the tip of the penis (urethra). [...] procedure uses radio frequencies to destroy and removea small amount of prostate tissue. ? Interstitial laser coagulation (ILC). This procedure uses a laser to destroy and remove a small amount of prostate tissue. ? Transurethral electrovaporization (TUVP). This procedure uses electrodes to destroy and remove a small amount of prostate tissue. ? Prostatic urethral lift. This procedure inserts an implant to push the lobes of the prostate awayfrom the urethra. Follow these instructions at home: ??? Take wdth-mna-dieguoh and prescription medicines only as told by [...] symptoms do not get (more content not included)...[facility]12-11-2024 Evaluation note* Diagnosis Onset Date Resolution Status Admit Date Acute UTI acute October 06, 2024 8:35pm BPH loc w urin obs/LUTS acute D ecember 2023 8:35pm Bradycardia acute September 8:35pm Complicated UTI (urinary tra ct infection) acute October 06 024 8:35pm Cyst, kidney, acquired acute De cember 2023 8:35pm ESBL (extended spectrum beta-lactamase) producing bacteria infection acute September 8:35pm Hematuria acute October 06, 2024 8:35pm HTN (hypertension) acute Decemb er 2023 8:35pm Hypoxia acute October 06, 2024 8:35pm Normocytic anemia acute Decembe r 2023 8:35pm Renal cyst, acquired, left acute October 06, 2024 8:35pm T2DM (type 2 diabetes mellitus) acute October 06 8:35pm Acute blood loss anemia resolved D ecember 2023 8:35pm Hypomagnesemia resolved September 262023 8:35pm Left renal mass resolved October 06, 2024 8:35pm [facility] Work Phone: 1(145) 405-324812-10-2024 History of Present illness Narrative* Mehnaz Campos, PT - 10/05/2024 12:38 PM EST Physical Therapy Therapy Communication Note Patient Name: Vashti Massey Department: [facility] 3 S Room: 3123/3123-A Today's Date: 10/05/2024 Discipline: Physical Therapy Comment: PT orders received, chart reviewed. Pt is LTC resident at [facility] and will return when medically ready. Pt without acute skilled therapy needs at this time. Will DC OT orders. 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 Not hard Housing Stability In the last 12 months, was there a time when you were not able to pay the mortgage or rent on time?N At any time in the past 12 months, were you homeless or living in a snf (including now)? N Transportation Needs In the past 12 months, has lack of transportation kept you from medical appointments or from getting medications? no In the past 12 months, has lack of transportation kept you from meetings, work, or from getting things needed for daily living? 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 Facility number; [phone] . Voice mail left for emergency contact, daughter Bhumika at [phone]. Message sent to [facility] to send a return referral to [facility] to return today. 1150: I spoke with patient's daughter, Bhumika [phone] and she confirmed her dad will return to [facility] (fax: [phone]). Facility can accept the patient's return today. 1330: Stretcher transport arranged for [facility] today at 4:30 . Patient's daughter, Bhumika notified,bedside and facility notified. * Gricelda Perea MD - 10/04/2024 7:22 PM EST Vashti Massey is a 69 y.o. male on day 2 of admission presenting with Hematuria. Subjective No cp Objective Current Facility-Administered Medications: acetaminophen (Tylenol) tablet 650 mg, 650 mg, oral, q6h PRN, Hong Grant APRN- YUKI, 650 mg at 10/03/24 1440 [START ON 10/05/2024] aspirin EC tablet 81 mg, 81 mg, oral, Daily, ALYSON Jaime atorvastatin (Lipitor) tablet 40 mg, 40 mg, oral, Nightly, Yamileth Gilman PA-C bisacodyl (Dulcolax) EC tablet 10 mg, 10 mg, oral, Daily, Hong Grant APRN-YUKI, 10 mg at 10/04/24 0928 dextrose 50 % injection 12.5 g, 12.5 g, intravenous, q15 min PRN, Hong Tello, CLIENT SUPPORT ADMINISTRATOR-HIDE HANDLER dextrose 50 % injection 25 g, 25 g, intravenous, q15 min PRN, Hong HoldeniMAGALYN-YUKI gabapentin (Neurontin) capsule 100 mg, 100 mg, oral, TID, CHANDA Garcia, 100 mg at 10/04/24 173 gadoterate meglumine (Dotarem) 0.5 mmol/mL contrast injection 17 mL, 17 mL, intravenous, Once in imaging, Gricelda Perea MD glucagon (Glucagen) injection 1 mg, 1 mg, intramuscular, q15 min PRN, Hong Tello, CLIENT SUPPORT ADMINISTRATOR-YUKI glucagon (Glucagen) injection 1 mg, 1 mg, intramuscular, q15 min PRN, Hong Grant APRN-YUKI glycine 1.5 % irrigation solution 3,000 mL, 3,000 mL, irrigation, Continuous, Yamileth Gilman PA-C, 3,000 mL at 10/02/24 1748 insulin glargine (Lantus) injection 15 Units, 15 Units, subcutaneous, Nightly, Yamileth Gilman PA-C insulin lispro injection 0-10 Units, 0-10 Units, subcutaneous, Before meals & nightly, ALYSON Rivera, 4 Units at 10/04/24 1736 magnesium hydroxide (Milk of Magnesia) 400 mg/5 mL suspension 5 mL, 5 mL, oral, Daily PRN, Yamileth Gilman PA-C magnesium oxide (Mag-Ox) tablet 400 mg, 400 mg, oral, Daily, Yamileth Gilman PA-C, 400 mg at 10/04/241732 melatonin tablet 3 mg, 3 mg, oral, Nightly PRN, Hong Grant CLIENT SUPPORT ADMINISTRATOR-YUKI, 3 mg at 10/03/242111 metoprolol succinate XL (Toprol-XL) 24 hr tablet 50 mg, 50 mg, oral, Daily, Yamileth Gilman PA-C,50 mg at 10/04/241732 nicotine (Nicoderm CQ) 21 mg/24 hr patch 1 patch, 1 patch, transdermal, Daily, 1 patch at 10/04/24927 FOLLOWED BY [START ON 11/13/2024] nicotine (Nicoderm CQ) 14 mg/24 hr patch 1 patch, 1 patch,transdermal, Daily FOLLOWED BY [START ON 11/27/2024] nicotine (Nicoderm CQ) 7 mg/24 hr patch 1 patch, 1 patch, transdermal, Daily, Hong Tello, CLIENT SUPPORT ADMINISTRATOR-HIDE HANDLER pantoprazole (ProtoNix) EC tablet 40 mg, 40 mg, oral, Daily before breakfast, Hong Grant, CLIENT SUPPORT ADMINISTRATOR-HIDE HANDLER, 40 mg at 10/04/24 0603 polyethylene glycol (Glycolax, Miralax) packet 17 g, 17 g, oral, Daily, Hong Tello, CLIENT SUPPORT ADMINISTRATOR-HIDE HANDLER, 17 gat 10/03/24 0852 sennosides (Senokot) tablet 17.2 mg, 2 tablet, oral, Daily, Hong Tello, CLIENT SUPPORT ADMINISTRATOR- HIDE HANDLER, 17.2 mg at 10/04/2428 tamsulosin (Flomax) 24 hr capsule 0.4 mg, 0.4 mg, oral, Daily, Hong Grant, CLIENT SUPPORT ADMINISTRATOR-HIDE HANDLER, 0.4 mg at 10/04/2428 [START ON 10/05/2024] ticagrelor (Brilinta) tablet 90 mg, 90 mg, oral, BID, Tea Vargas APRN-YUKI traZODone (Desyrel) tablet 25 mg, 25 mg, [...] appreciate input of urology. Gricelda Perea MD * Soraya Flannery, CLIENT SUPPORT ADMINISTRATOR-HIDE HANDLER - 10/04/2024 3:32 PM EST Vashti Massey 69 y.o. male Subjective Patient seen and examined this afternoon. Cyr catheter with yellow urine, no clots seen. Per nursing, was irrigated overnight with no clots and has not required manual irrigation throughout the daytoday. With no other complaints. Objective PHYSICAL EXAM: [...] per CT scan. COMPARISON: None. ACCESSION NUMBER(S): [id number] ORDERING CLINICIAN: YAMILETH GILMAN TECHNIQUE: Multiple images [...] 0.4 cm. PANCREAS: Obscured by bowel gas. RIGHTKIDNEY: The right kidney measures 10.7 cm in [...] Silvio Barksdale 10/04/2024 10:50 AM Dictation workstation: [id number] ECG 12 Lead Result Date: 10/02/2024 Sinus bradycardia Moderate voltage criteria for LVH, may be normal variant No previous ECGs available Reconfirmed by Luis Noel ([id number]) on 10/02/2024 3:37:[address] abdomen pelvis wo IV contrast Result Date: 10/02/2024 Interpreted By: Jermaine Beckford, STUDY: CT ABDOMEN PELVIS WO IV CONTRAST; 10/02/2024 8:17 am INDICATION: Signs/Symptoms:hematuria with clots COMPARISON: None ACCESSION NUMBER(S): [id number] ORDERINGCLINICIAN: HONG GRANT TECHNIQUE: Spiral axial unenhanced images [...] in transverse dimension, with possible gallstones and sludge.Spleen: Normal in size without focal lesions. Pancreas: Unremarkable. Adrenal glands: No focal lesions. The kidneys are normal in size and position. Complex cystic lesion measuring 9.4 cm is noted inthe upper pole of the left kidney containing partially calcified septations. There also a couple ofsmaller cysts in the left kidney measuring up [...] without bowel obstruction. The appendix is seen andappears normal. There is no free air or [...] Jermaine Beckford 10/02/2024 10:27 AM Dictation workstation: [id number] Plan #Gross hematuria - Can manually irrigate [...] professional and overall care of this patient. * Gricelda Perea MD - 10/03/2024 2:05 PM EST Vashti Massey is a 69 y.o. male on day 1 of admission presenting with Hematuria. Subjective No cp/SOB Objective Current Facility-Administered Medications: acetaminophen (Tylenol) tablet 650 mg, 650 mg, oral, q6h PRN, Hong Tello, CLIENT SUPPORT ADMINISTRATOR- HIDE HANDLER, 650 mg at 10/03/24 0851 bisacodyl (Dulcolax) EC tablet 10 mg, 10 mg, oral, Daily, Hong Tello, CLIENT SUPPORT ADMINISTRATOR-HIDE HANDLER, 10 mg at 10/03/24 0851 dextrose 50 % injection 12.5 g, 12.5 g, intravenous, q15 min PRN, Hong Tello, CLIENT SUPPORT ADMINISTRATOR-HIDE HANDLER dextrose 50 % injection 25 g, 25 g, intravenous, q15 min PRN, Hong Tello, CLIENT SUPPORT ADMINISTRATOR-HIDE HANDLER glucagon (Glucagen) injection 1 mg, 1 mg, intramuscular, q15 min PRN, Hong Tello, CLIENT SUPPORT ADMINISTRATOR-HIDE HANDLER glucagon (Glucagen) injection 1 mg, 1 mg, intramuscular, q15 min PRN, Hong Tello, CLIENT SUPPORT ADMINISTRATOR-HIDE HANDLER glycine 1.5 % irrigation solution 3,000 mL, 3,000 mL, irrigation, Continuous, Yamileth Gilman PA-C, 3,000 mL at 10/02/24 1748 insulin lispro injection 0-10 Units, 0-10 Units, subcutaneous, Before meals & nightly, Hong Tello, CLIENT SUPPORT ADMINISTRATOR-HIDE HANDLER, 2 Units at 10/03/24 1322 melatonin tablet 3 mg, 3 mg, oral, Nightly PRN, Hong Tello, CLIENT SUPPORT ADMINISTRATOR-HIDE HANDLER, 3 mg at 10/02/24 2126 nicotine (Nicoderm CQ) 21 mg/24 hr patch 1 patch, 1 patch, transdermal, Daily, 1 patch at 10/03/24 0856 FOLLOWED BY [START ON 11/13/2024] nicotine (Nicoderm CQ) 14 mg/24 hr patch 1 patch, 1 patch,transdermal, Daily FOLLOWED BY [START ON 11/27/2024] nicotine (Nicoderm CQ) 7 mg/24 hr patch 1 patch, 1 patch, transdermal, Daily, Hong Tello, CLIENT SUPPORT ADMINISTRATOR-HIDE HANDLER pantoprazole (ProtoNix) EC tablet 40 mg, 40 mg, oral, Daily before breakfast, Hong Tello, CLIENT SUPPORT ADMINISTRATOR-HIDE HANDLER, 40 mg at 10/03/24 0614 polyethylene glycol (Glycolax, Miralax) packet 17 g, 17 g, oral, Daily, Hong Tello, CLIENT SUPPORT ADMINISTRATOR-HIDE HANDLER, 17 gat 10/03/24 0852 sennosides (Senokot) tablet 17.2 mg, 2 tablet, oral, Daily, Hong Tello, CLIENT SUPPORT ADMINISTRATOR- HIDE HANDLER, 17.2 mg at 10/03/24 0852 tamsulosin (Flomax) 24 hr capsule 0.4 mg, 0.4 mg, oral, Daily, Hong Tello, CLIENT SUPPORT ADMINISTRATOR-HIDE HANDLER, 0.4 mg at 10/03/24 0852 Physical Exam [...] Yellow, Dark-Yellow Appearance, Urine Clear Clear Specific [place], Urine 1.011 1.005 - 1.035 pH, Urine [...] closely. Gricelda Perea MD [facility] Work [facility] [phone]) 802-769812-10-2024 Plan of care note* Care Plan - ALYSON Jaime - 10/05/2024 12:29 PM EST Medical house staff was asked to assist with the patient's discharge from the hospital. I have beenuninvolved in this patient's care up to this point. The attending physician has given the order forthe patient to be discharged from the hospital. The attending physician has left the hospital todayand has asked for my assistance with the patient's discharge. Medications continued as per ordered.Spoke with the patient's daughter and updated her on the patient's condition and need for follow-upwith GI for possible nodules on US of gallbladder and urology for cystoscopy outpatient. I answeredher questions and she voiced understanding. The patient is being provided discharge orders in theirdischarge packet as instructed by the attending. [facility] Work Phone: [phone] 891-392712-10-2024 Miscellaneous Notes* Care Plan - ALYSON Jaime - 10/05/2024 12:29 PM EST Medical house staff was asked to assist with the patient's discharge from the hospital. I have beenuninvolved in this patient's care up to this point. The attending physician has given the order forthe patient to be discharged from the hospital. The attending physician has left the hospital todayand has asked for my assistance with the patient's discharge. Medications continued as per ordered.Spoke with the patient's daughter and updated her on the patient's condition and need for follow-upwith GI for possible nodules on US of gallbladder and urology for cystoscopy outpatient. I answeredher questions and she voiced understanding. The patient is being provided discharge orders in theirdischarge packet as instructed by the attending. * Documentation Clarification Note - Gricelda Perea MD - 10/05/2024 10:45 AM EST PATIENT: VASHTI MASSEY : 1955 ADMIT DATE: 10/02/2024 5:12 AM DISCH DATE: RESPONDING PROVIDER #: [id number] PROVIDER RESPONSE TEXT: Bleeding/Gross Hematuria due to [...] by: GRICELDA PEREA MD 10/05/2024 10:44 AM * Care Plan - Richelle Mehta RN - 10/05/2024 5:09 AM EST Problem: Skin Goal: Prevent/manage excess moisture Outcome: [...] include Pt will remain free from hematuria * Care Plan - Tori Norwood RN - 10/04/2024 6:02 PM EST Problem: Obstructive: Kidney Stones, Hydronephrosis, BPH Goal: Relieve obstruction Outcome: Progressing Problem: Skin Goal: Participates in plan/prevention/treatment measures 10/04/20241800 by Tori Norwood RN Outcome: Met Flowsheets (Taken 10/04/20241800) Participates in plan/prevention/treatment measures: Elevate heels Problem: Fall/Injury Goal: Not fall by end of shift Outcome: Met * Care Plan - Cyndy Rondon RN - 10/04/2024 5:34 AM EST The patient's goals for the shift include [...] improved pain control throughout shift Outcome: Progressing * Care Plan - Cyndy Rondon RN - 10/03/2024 5:55 AM EST The patient's goals for the shift include [...] throughout shift Outcome: Progressing documented in this [facility] Work Phone: [phone]) 831-564312-10-2024 Hospital Discharge instructions* Discharge Instructions* ALYSON Jaime - 10/05/2024 10:55 AM EST Please follow-up with your primary care physician for referral to gastrointestinal physician Yolanda TOWNSEND (did your EGD in 03/2024) in your area for further work-up on your gallbladder as your ultrasound of your gallbladder showed distended gallbladder, no acute cholecystitis, and no scales's sign. However, there were nodules seen that recommends further evaluation. You were unable to tolerate the MR abdomen. documented in this [facility] Work Phone: [phone]) 702-637912-10-2024 Note* Documentation Clarification Note - Gricelda Perea MD - 10/05/2024 10:45 AM EST PATIENT: VASHTI MASSEY : 1955 ADMIT DATE: 10/02/2024 5:12 AM DISCH DATE: RESPONDING PROVIDER #: [id number] PROVIDER RESPONSE TEXT: Bleeding/Gross Hematuria due to [...] 10.5, 11.0 from 10/02-10/[place] [address] AM states Hematuria , Chronic indwelling Cyr [...] by: GRICELDA PEREA MD 10/05/2024 10:44 AM [facility] Work Phone: [phone]) 678-419212-10-2024 Plan of care note* Care Plan - Richelle Mehta RN - 10/05/2024 5:09 AM EST Problem: Skin Goal: Prevent/manage excess moisture Outcome: [...] include Pt will remain free from hematuria [facility]12-09-[facility] Nurse Note* Tori Norwood RN - 10/04/2024 6:36 PM EST 1530 Pt c/o constipation, attempted to have BM on bedpan all shift. Attempted fleets enema with difficulty due to large amount hard stool in rectum. 1800 Pt has had two XL soft brown BMs 1830 Cyr has been clear yellow all shift, now dark nae; Hand irrigated with clear return, no clots noted. [facility]12-09[facility] Nurse Note* Tori Norwood RN - 10/04/2024 6:36 PM EST 1530 Pt c/o constipation, attempted to have BM on bedpan all shift. Attempted fleets enema with difficulty due to large amount hard stool in rectum. 1800 Pt has had two XL soft brown BMs 1830 Cyr has been clear yellow all shift, now dark nae; Hand irrigated with clear return, no clots noted. * Tori Norwood RN - 10/04/2024 2:23 PM EST 1420 Pt off unit for MRCP documented in this [facility] Work Phone: 1(240) 623-314812-09-2024 Plan of care note* Care Plan - Tori Norwood RN - 10/04/2024 6:02 PM EST Problem: Obstructive: Kidney Stones, Hydronephrosis, BPH Goal: Relieve obstruction Outcome: Progressing Problem: Skin Goal: Participates in plan/prevention/treatment measures 10/04/20241800 by Tori Norwood RN Outcome: Met Flowsheets (Taken 10/04/20241800) Participates in plan/prevention/treatment measures: Elevate heels Problem: Fall/Injury Goal: Not fall by end of shift Outcome: Met [facility] Work Phone: 1([phone] 875-111712-09-2024 Nurse Note* Tori Norwood RN - 10/04/2024 2:23 PM EST 1420 Pt off unit for MRCP [facility] Work Phone: [phone] 718-971512-09-2024 Plan of care note* Care Plan - Cyndy Rondon RN - 10/04/2024 5:34 AM EST The patient's goals for the shift include [...] improved pain control throughout shift Outcome: Progressing [facility]12-08-2024 Consult note* Wes Vaughn MD - 10/03/2024 7:23 AM EST Reason For Consult Gross hematuria History Of Present Illness Vashti Massey is a 69 y.o. male presenting with gross hematuria with suprapubic discomfort, initially presenting to outside hospital on 09/29/2024 - Bleeding recurred within 6 hours of returning to extended care facility - Suprapubic pain improved since CBI restart at [facility] - Multiple large clots removed via [...] agent which is being managed with cardiology. Thishas been held since 09/29/2024. His hematuria continues [...] care of this patient. Wes Vaughn MD [facility] Work Phone: [phone]) 549-537412-08-2024 Consult note* Wes Vaughn MD - 10/03/2024 7:23 AM EST Reason For Consult Gross hematuria History Of Present Illness Vashti Massey is a 69 y.o. male presenting with gross hematuria with suprapubic discomfort, initially presenting to outside hospital on 09/29/2024 - Bleeding recurred within 6 hours of returning to extended care facility - Suprapubic pain improved since CBI restart at [facility] - Multiple large clots removed via [...] agent which is being managed with cardiology. Thishas been held since 09/29/2024. His hematuria continues [...] patient. Wes Vaughn MD [facility] Work Phone: [phone] 201-368612-08-2024 Plan of care note* Care Plan - Cyndy Rondon RN - 10/03/2024 5:55 AM EST The patient's goals for the shift include [...] improved pain control throughout shift Outcome: Progressing [facility] Work Phone: [phone] History and physical note* Gricelda Perea MD - 10/02/2024 11:16 AM EST History Of Present Illness Vashti Massey is a 69 y.o. M from [facility] with PMH of HTN, HLD, T2DM, CVA, BPH, chronic indwelling Cyr catheter due to urinary retention presented to ER in [facility] due to hematuria. Patient was apparently in the ER few days ago with a similar complaint and was sent back to [facility] from where he came back to ER again.. Patient apparently was on Brilinta for his previous stroke which was recently DC'd due to hematuria. There was no obvious fever or chills. Patient was transferred to [facility] as there was no urologist available in [facility]. He was admitted on 3 S. daily [...] 650 mg, oral, q6h PRN, Hong Tello, CLIENT SUPPORT ADMINISTRATOR- HIDE HANDLER, 650 mg at 10/02/24 0916 bisacodyl (Dulcolax) EC tablet 10 mg, 10 mg, oral, Daily, Hong Tello, CLIENT SUPPORT ADMINISTRATOR-HIDE HANDLER, 10 mg at 10/02/24 0918 dextrose 50 % injection 12.5 g, 12.5 g, intravenous, q15 min PRN, Hong Tello, CLIENT SUPPORT ADMINISTRATOR-HIDE HANDLER dextrose 50 % injection 25 g, 25 g, intravenous, q15 min PRN, Hong Tello, CLIENT SUPPORT ADMINISTRATOR-HIDE HANDLER glucagon (Glucagen) injection 1 mg, 1 mg, intramuscular, q15 min PRN, Hong Tello, CLIENT SUPPORT ADMINISTRATOR-HIDE HANDLER glucagon (Glucagen) injection 1 mg, 1 mg, intramuscular, q15 min PRN, Hong Tello, CLIENT SUPPORT ADMINISTRATOR-HIDE HANDLER insulin lispro injection 0-10 Units, 0-10 Units, subcutaneous, Before meals & nightly, Hong Tello, CLIENT SUPPORT ADMINISTRATOR-HIDE HANDLER, 2 Units at 10/02/24 09 melatonin tablet 3 mg, 3 mg, oral, Nightly PRN, Hong Tello, CLIENT SUPPORT ADMINISTRATOR-HIDE HANDLER nicotine (Nicoderm CQ) 21 mg/24 hr patch 1 patch, 1 patch, transdermal, Daily, 1 patch at 10/02/24 0918 FOLLOWED BY [START ON 11/13/2024] nicotine (Nicoderm CQ) 14 mg/24 hr patch 1 patch, 1 patch,transdermal, Daily FOLLOWED BY [START ON 11/27/2024] nicotine (Nicoderm CQ) 7 mg/24 hr patch 1 patch, 1 patch, transdermal, Daily, Hong Tello, CLIENT SUPPORT ADMINISTRATOR-HIDE HANDLER pantoprazole (ProtoNix) EC tablet 40 mg, 40 mg, oral, Daily before breakfast, Hong Tello, CLIENT SUPPORT ADMINISTRATOR-HIDE HANDLER, 40 mg at 10/02/24 0641 polyethylene glycol (Glycolax, Miralax) packet 17 g, 17 g, oral, Daily, Hong Tello, CLIENT SUPPORT ADMINISTRATOR-HIDE HANDLER, 17 gat 10/02/24 0918 sennosides (Senokot) tablet 17.2 mg, 2 tablet, oral, Daily, Hong Tello, CLIENT SUPPORT ADMINISTRATOR- HIDE HANDLER, 17.2 mg at 10/02/24 0918 tamsulosin (Flomax) 24 hr capsule 0.4 mg, 0.4 mg, oral, Daily, Hong Tello, CLIENT SUPPORT ADMINISTRATOR-HIDE HANDLER, 0.4 mg at 10/02/24 0918 Review of [...] rate 19, height 1.778 m (5' 10 ),weight 85.5 kg (188 lb 7.9 oz), SpO2 [...] Rate 55 BPM Atrial Rate 55 BPM MD Interval 168 ms QRS Duration 106 ms QT Interval 434 ms QTC Calculation(Bazett) 415 ms P [place]mor[place] 13 degrees R Balmorhea -25 degrees T [place]mor[place] -13 degrees QRS Count 9 beats Q Onset 225 ms P Onset 141 ms P Offset 203 ms T Offset 442 ms QTC Fredericia 421 ms POCT GLUCOSE Result Value Ref Range POCT Glucose 173 (H) 74 - 99 mg/dL Radiology CT ABDOMEN PELVIS WO IV CONTRAST; 10/02/2024 8:17 am INDICATION: Signs/Symptoms:hematuria with clots COMPARISON: None ACCESSION NUMBER(S): [id number] ORDERING CLINICIAN: HONG GRANT TECHNIQUE: Spiral axial [...] DVT prophylaxis, follow closely Gricelda Perea MD [facility] Work Phone: 1(237) 339-893012-07-2024 History and physical note* Gricelda Perea MD - 10/02/2024 11:16 AM EST History Of Present Illness Vashti Massey is a 69 y.o. M from [facility] with PMH of HTN, HLD, T2DM, CVA, BPH, chronic indwelling Cyr catheter due to urinary retention presented to ER in [facility] due to hematuria. Patient was apparently in the ER few days ago with a similar complaint and was sent back to [facility] from where he came back to ER again.. Patient apparently was on Brilinta for his previous stroke which was recently DC'd due to hematuria. There was no obvious fever or chills. Patient was transferred to [facility] as there was no urologist available in [facility]. He was admitted on 3 S. daily [...] 650 mg, oral, q6h PRN, Hong Tello, CLIENT SUPPORT ADMINISTRATOR- HIDE HANDLER, 650 mg at 10/02/24 0916 bisacodyl (Dulcolax) EC tablet 10 mg, 10 mg, oral, Daily, Hong Tello, CLIENT SUPPORT ADMINISTRATOR-HIDE HANDLER, 10 mg at 10/02/24 0918 dextrose 50 % injection 12.5 g, 12.5 g, intravenous, q15 min PRN, Hong Tello, CLIENT SUPPORT ADMINISTRATOR-HIDE HANDLER dextrose 50 % injection 25 g, 25 g, intravenous, q15 min PRN, Hong Tello, CLIENT SUPPORT ADMINISTRATOR-HIDE HANDLER glucagon (Glucagen) injection 1 mg, 1 mg, intramuscular, q15 min PRN, Hong Tello, CLIENT SUPPORT ADMINISTRATOR-HIDE HANDLER glucagon (Glucagen) injection 1 mg, 1 mg, intramuscular, q15 min PRN, Hong Tello, CLIENT SUPPORT ADMINISTRATOR-HIDE HANDLER insulin lispro injection 0-10 Units, 0-10 Units, subcutaneous, Before meals & nightly, Hong Tello, CLIENT SUPPORT ADMINISTRATOR-HIDE HANDLER, 2 Units at 10/02/24 0927 melatonin tablet 3 mg, 3 mg, oral, Nightly PRN, Hong Tello, CLIENT SUPPORT ADMINISTRATOR-HIDE HANDLER nicotine (Nicoderm CQ) 21 mg/24 hr patch 1 patch, 1 patch, transdermal, Daily, 1 patch at 10/02/24 0918 FOLLOWED BY [START ON 11/13/2024] nicotine (Nicoderm CQ) 14 mg/24 hr patch 1 patch, 1 patch,transdermal, Daily FOLLOWED BY [START ON 11/27/2024] nicotine (Nicoderm CQ) 7 mg/24 hr patch 1 patch, 1 patch, transdermal, Daily, Hong Tello, CLIENT SUPPORT ADMINISTRATOR-HIDE HANDLER pantoprazole (ProtoNix) EC tablet 40 mg, 40 mg, oral, Daily before breakfast, Hong Tello, CLIENT SUPPORT ADMINISTRATOR-HIDE HANDLER, 40 mg at 10/02/24 0641 polyethylene glycol (Glycolax, Miralax) packet 17 g, 17 g, oral, Daily, Hong Tello, CLIENT SUPPORT ADMINISTRATOR-HIDE HANDLER, 17 gat 10/02/24 0918 sennosides (Senokot) tablet 17.2 mg, 2 tablet, oral, Daily, Hong Tello, CLIENT SUPPORT ADMINISTRATOR- HIDE HANDLER, 17.2 mg at 10/02/24 0918 tamsulosin (Flomax) 24 hr capsule 0.4 mg, 0.4 mg, oral, Daily, Hong Tello, CLIENT SUPPORT ADMINISTRATOR-HIDE HANDLER, 0.4 mg at 10/02/24 0918 Review of [...] rate 19, height 1.778 m (5' 10 ),weight 85.5 kg (188 lb 7.9 oz), SpO2 [...] Rate 55 BPM Atrial Rate 55 BPM MD Interval 168 ms QRS Duration 106 ms QT Interval 434 ms QTC Calculation(Bazett) 415 ms P [place] 13 degrees R Balmorhea -25 degrees T [place]mor[place] -13 degrees QRS Count 9 beats Q Onset 225 ms P Onset 141 ms P Offset 203 ms T Offset 442 ms QTC Fredericia 421 ms POCT GLUCOSE Result Value Ref Range POCT Glucose 173 (H) 74 - 99 mg/dL Radiology CT ABDOMEN PELVIS WO IV CONTRAST; 10/02/2024 8:17 am INDICATION: Signs/Symptoms:hematuria with clots COMPARISON: None ACCESSION NUMBER(S): [id number] ORDERING CLINICIAN: HONG GRANT TECHNIQUE: Spiral axial [...] DVT prophylaxis, follow closely Gricelda Perea MD * Hong Tello, CLIENT SUPPORT ADMINISTRATOR-HIDE HANDLER - 10/02/2024 5:31 AM EST History Of Present Illness Vashti Massey is a 69 y.o. 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 Outside ER documentation: Patient initially presented to outside hospital from an extended care facility for concern of grosshematuria. Per outside documentation, patient was brought to [...] was discontinued by the doctor at the facilitydue to hematuria. Last approximate dose of Brilinta was likely on 09/29. Patient was complaining of a suprapubic pressure which was constant. Currently, the patient states that his suprapubic pain has improved since CBI was restarted at the [facility]. He mentions that multiple large clots [...] time is feeling constipated and he is requestingmedication to help him have a bowel movement. He denies any recent fever, chills, headache, dizziness, chest pain / palpitations, shortness of breath, cough, abdominal pain, nausea, vomiting, diarrhea. ED Course at [facility]: Vital signs: Temp. 98.2F, HR 70 bpm, RR 23, BP 132/63, SPO2 97% on room air CMP: Glucose 167, Na+ 139, K+ 4.0, BUN 23, creatinine 0.72, EGFR >60 CBC w/diff: WBC 5.0, H&H 10.8/33.4 respectively, platelet 264 Troponin I : 6.2, 5.8 (WNL per OSH range) EKG: Sinus rhythm, ventricular rate 61 bpm, MD 162 ms, QRS 108 ms, QTc [address] elevation or depression noted. Disposition: Patient was [place] [facility] [place] concern of [place] hematuria requiring CBI [...] Plan: Code Status: DNR and No Intubation. [place] DNR form completed and attached to EMR - Attempted to call daughter at the number provided by the patient, automated message Consult: Urology ATB: None indicated at this time Meds: Sliding scale insulin, hypoglycemia protocol. Daily nicotine patch. Dulcolax 10 mg p.o. daily, MiraLAX 17 g p.o. daily, Senokot 17.2 mg p.o. daily. Pantoprazole 40 mg p.o. daily. Tamsulosin 0.4mg capsule p.o. daily. Tylenol 650 mg p.o. [...] care. Any further evaluation and management per attendingand consulting physicians. This note has been transcribed using Sanrad voice recognition system and there is a possibility of unintentional typing misprints. Any information found to be copied from previous providers is done in the best interest of the patient to provide accurate, quality, and continuity of care. I spent 60 minutes in the professional and overall care of this patient. ALYSON Rivera [facility] House documented in this [facility] Work Phone: 1(437) 721-705812-07-2024 History and physical note* ALYSON Rivera - 10/02/2024 5:31 AM EST History Of Present Illness Vashti Massey is a 69 y.o. 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 Outside ER documentation: Patient initially presented to outside hospital from an extended care facility for concern of grosshematuria. Per outside documentation, patient was brought to [...] was discontinued by the doctor at the facilitydue to hematuria. Last approximate dose of Brilinta was likely on 09/29. Patient was complaining of a suprapubic pressure which was constant. Currently, the patient states that his suprapubic pain has improved since CBI was restarted at the [facility]. He mentions that multiple large clots [...] time is feeling constipated and he is requestingmedication to help him have a bowel movement. He denies any recent fever, chills, headache, dizziness, chest pain / palpitations, shortness of breath, cough, abdominal pain, nausea, vomiting, diarrhea. ED Course at [facility]: Vital signs: Temp. 98.2F, HR 70 bpm, RR 23, BP 132/63, SPO2 97% on room air CMP: Glucose 167, Na+ 139, K+ 4.0, BUN 23, creatinine 0.72, EGFR >60 CBC w/diff: WBC 5.0, H&H 10.8/33.4 respectively, platelet 264 Troponin I : 6.2, 5.8 (WNL per OSH range) EKG: Sinus rhythm, ventricular rate 61 bpm, MD 162 ms, QRS 108 ms, QTc [address] elevation or depression noted. Disposition: Patient was transferred [place] [facility] [place] concern of gross hematuria requiring CBI [...] Plan: Code Status: DNR and No Intubation. [place] DNR form completed and attached to EMR - Attempted to call daughter at the number provided by the patient, automated message Consult: Urology ATB: None indicated at this time Meds: Sliding scale insulin, hypoglycemia protocol. Daily nicotine patch. Dulcolax 10 mg p.o. daily, MiraLAX 17 g p.o. daily, Senokot 17.2 mg p.o. daily. Pantoprazole 40 mg p.o. daily. Tamsulosin 0.4mg capsule p.o. daily. Tylenol 650 mg p.o. [...] care. Any further evaluation and management per attendingand consulting physicians. This note has been transcribed using Sanrad voice recognition system and there is a possibility of unintentional typing misprints. Any information found to be copied from previous providers is done in the best interest of the patient to provide accurate, quality, and continuity of care. I spent 60 minutes in the professional and overall care of this patient. ALYSON Rivera Med. [facility] Work Phone: 1(275) 831-110012-06-2024 Miscellaneous Notes* Telephone Encounter - Ally Juarez - 10/01/2024 11:28 PM EST Contract: 195 RE Hematuria * Telephone Encounter - Ally Juarez - 10/01/2024 11:[address] Josh martin and Connected Call [facility] Tele[facility] encounter Note* Telephone Encounter - Ally Juarez - 10/01/2024 11:28 PM EST Contract: 195 RE Hematuria [facility]-06-2024 Telephone encounter Note* Telephone Encounter - Ally Juarez - 10/01/2024 11:[address] Josh martin and Connected Call [facility]12-06-2024 Miscellaneous Notes* Telephone Encounter - Kathrin Deluca - 10/01/2024 10:23 PM EST Contract: 195 Bhumika @[employer] called regarding urinary retention & blood in urine @[facility] * Telephone Encounter - Kathrin Deluca - 10/01/2024 10:23 PM EST [id number] I called Dr Moreno & transferred her to Bhumika @[email or web address] documented in this [facility] Telephone encounter Note* Telephone Encounter - Kathrin Deluca - 10/01/2024 10:23 PM EST Contract: 195 Bhumika @[employer] called regarding urinary retention & blood in urine @[facility] [id number] Telephone encounter Note* Telephone Encounter - Kathrinsylvia Deluca - 10/01/2024 10:23 PM EST [id number] I called Dr Moreno & transferred her to Bhumika @[email or web address] [facility] 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 Rojas today as he is currently in ED. Please call to reschedule once DC. * Telephone Encounter - Tori Moya - 05/27/2024 3:29 PM EDT Patient is still admitted * Telephone Encounter - Tori Moya - 05/27/2024 3:29 PM EDT Spoke with Bhumika and rescheduled appt she's going to assist with Video documented in this [facility] Telephone encounter Note* Telephone Encounter - Kathya Cordero CMA - 05/27/2024 3:29 PM EDT [employer] Hanging Helper cancelled Pt's appointment with Dr. Rojas today as he is currently in ED. Please call to reschedule once DC. [facility]-01-2024 Telephone encounter Note* Telephone Encounter - Tori Moya - 05/27/2024 3:29 PM EDT Patient is still admitted [facility]-01-2024 Telephone encounter Note* Telephone Encounter - Tori Moya - 05/27/2024 3:29 PM EDT Spoke with Bhumika and rescheduled appt she's going to assist with Video [facility]06-15-2024 Hospital course Narrative* Emilia Hidalgo MD - 04/10/2024 12:47 PM EDT Discharge Summary Patient ID: Vashti Massey Acct: [id number] Patient's PCP: ELEAZAR MAYORGA DO Admit Date: 04/09/2024 Discharge Date: 04/10/2024 Admitting Physician: Emilia Hidalgo MD Discharge Physician: Emilia Hidalgo MD Discharge Diagnoses: Primary Problem Cerebrovascular accident (CVA) due to occlusion of right middle cerebral artery (CMS-HCC) Principal Problem: Cerebrovascular accident (CVA) due to occlusion of right middle cerebral artery (CMS-HCC) Active Problems: Type 2 diabetes mellitus with hyperglycemia, with long-term current use of insulin (CMS-HCC) Mixed hyperlipidemia Gait instability Stroke-like symptoms Acute renal failure with acute renal cortical necrosis superimposed on stage 3a chronic kidney disease ([facility]) Past Medical History: Diagnosis Date Arthritis Cataract Diabetes ([facility]) Diabetes mellitus type 2, controlled ([facility]) Fractures The patient was seen and examined on day of discharge and was deemed stable for discharge. Code Status: Full Code Hospital Course: H&P Reviewed. Vashti Massey is a 68 y.o. male who presents with Stroke Alert Patient was brought into ER by EMS stroke alert was called patient was last well known was 10:30 p.m. last night. Patient woke up around midnight due to dizziness. Patient called EMS for himself as he has been falling out hold last night due to unsteady gait. Patient reported that he was having left-sided weakness of upper and lower extremity. Patient stated that he did have stroke 3 months ago and he did haveweakness on that side left-sided facial weakness too. Patient said that he has been falling recently in last week or so and he feels like his weakness onthe left side has been getting worse patient was also complaining of right wrist pain from multiplefalls. Patient denies any headache or head injury. No chest pain or difficulty breathing no abdominal pain no nausea vomiting or diarrhea. Patient denies any difficulty talking or difficulty swallowing. Stroke alert was called in the ER, Per er note Upon presentation to the emergency department stroke alert was activated for reports of ataxia at home with history of previous stroke. Patient taken to CT scanner in stable condition. Physical exam does reveal appreciable weakness to the left side and left-sided facial droop. Looking back through the patient's chart from December 11 2023 this is reportedly chronic for the patient. NIHSS of 2 forleft arm drift and left-sided facial droop. I did personally review the patient's CT imaging and did not appreciate any acute bleed or obvious stroke. Radiology does comment on increased narrowing ofthe M1 and M2 segment on the right side. I did speak with the stroke team in regards to the patient's history, physical exam, lab work and imaging. They did not recommend any acute intervention at this time but did recommend admission and tele stroke workup. Tele stroke workup was conducted in the emergency department without any change to the current plan for the patient to be admitted to the hospital with Plavix and aspirin. Patient continues to remain well in the emergency department withoutany new focal neurological deficits. Patient's lab work was significant for creatinine of 1.49. Slightly low hemoglobin of 9.8. Denies any active bleeding. Patient does have DAISY with creatinine of 1.49. Patient was given IV fluids in the emergency department. Troponin was also elevated however multiple EKGs in the emergency department did not reveal any signs of STEMI. This is likely from DAISY andstroke. Low concern for ACS. X-ray imaging was reviewed of the patient's wrist, pelvis, ankle, knee. I did not appreciate any obvious fracture. Radiology does confirm this. Transfer to [facility] under the care of stroke team for possible angiography. Today Patient was seen and examined at bedside today. Hemodynamically stable. No chest pain, shortness ofbreath, fever, chills, nausea, vomiting, palpitations, or abdominal pain reported. Patient still having left-sided weakness per patient's sister it is getting worse. Discussed with tele stroke team through epic chat. Plan to transferred to [facility] for further evaluation and management by stroke team. REVIEWED ALL 10 SYSTEMS AND ARE NEGATIVE EXCEPT NOTED Review of Systems Constitutional: Negative for activity change, appetite change and fatigue. HENT: Negative for nosebleeds, trouble swallowing and voice change. Eyes: Negative for itching. Respiratory: Negative for shortness of breath and stridor. Cardiovascular: Negative for chest pain and palpitations. Gastrointestinal: Negative for abdominal distention and abdominal pain. Endocrine: Negative for polyuria. Genitourinary: Negative for difficulty urinating and dysuria. Musculoskeletal: Positive for gait problem. Skin: Negative for color change. Allergic/Immunologic: Negative for immunocompromised state. Neurological: Positive for facial asymmetry and weakness. Negative for seizures and speech difficulty. Hematological: Negative for adenopathy. Consults: CONSULT TELESTROKE MEDICINE CONSULT TELESTROKE MEDICINE IP CONSULT TO CARDIOLOGY Procedures: @PROCEDURE@ Exam: BP 132/50 Pulse 82 Temp 36.6 C (97.8 F) (Oral) Resp 16 Ht 177.8 cm (5' 10 ) Wt 106.5 kg (234 lb 12.6 oz) SpO2 95% BMI 33.69 kg/m Physical Exam Constitutional: Appearance: He is well-developed. HENT: Head: Normocephalic and atraumatic. Nose: Nose normal. Eyes: Conjunctiva/sclera: Conjunctivae normal. Pupils: Pupils are equal, round, and reactive to light. Cardiovascular: Rate and Rhythm: Normal rate and regular rhythm. Heart sounds: Normal heart sounds. No murmur heard. Pulmonary: Effort: Pulmonary effort is normal. No respiratory distress. Breath sounds: Normal breath sounds. No wheezing or rales. Abdominal: General: Bowel sounds are normal. There is no distension. Palpations: Abdomen is soft. Tenderness: There is no abdominal tenderness. Musculoskeletal: General: No tenderness. Normal range of motion. Cervical back: Normal range of motion and neck supple. Skin: General: Skin is warm and dry. Capillary Refill: Capillary refill takes less than 2 seconds. Findings: Bruising present. Comments: Left leg and right wrist bruising Neurological: Mental Status: He is alert. Motor: Weakness present. No abnormal muscle tone. Gait: Gait abnormal. Comments: Left upper and lower extremity weakness with facial weakness on left side Psychiatric: Behavior: Behavior normal. Labs: Results from last 7 days Lab Units 04/10/24 0425 04/09/24 0825 POTASSIUM mmol/L 4.1 4.7 CHLORIDE mmol/L 106 102 CO2 mmol/L 20* 17* BUN mg/dL 86* 112* CREATININE mg/dL 1.02 1.49* CALCIUM mg/dL 8.6 8.4* Results from last 7 days Lab Units 04/10/24 0425 04/09/24 0825 WBC X10E9/L 8.5 9.7 HEMOGLOBIN g/dL 8.7* 9.8* HEMATOCRIT % 25.1* 28.3* PLATELETS X10E9/L 285 330 Results from last 7 days Lab Units 04/10/24 0425 MAGNESIUM mg/dL 2.3 Results from last 7 days Lab Units 04/09/24 0825 INR 1.2* MR brain without contrast Result Date: 04/09/2024 STUDY: MR BRAIN WO CONT INDICATION: Stroke sx, M1 and M2 stenosis right sided. TECHNIQUE: * Routinemultiplanar multisequence MR imaging of the brain was [...] than peripheral volume loss. Bilateral hippocampal atrophy, [id number] in severity. Few scattered foci of T2/FLAIR [...] by Emmanuel Pastrana on 04/09/2024 9:55 AM X-ray wrist right minimum 3 views Result Date: 04/09/2024 History: Bruising. Recent fall Exam/Technique: PA, oblique, and lateral views of the right wrist. Comparison: None Findings: There is no evidence of recent fracture or dislocation. Old posttraumatic and postsurgical changes in the scaphoid with anchor present within the bone. Prominent degenerativechange at the distal radial ulnar joint, radiocarpal joints, and first carpometacarpal joint IMPRESSION: No acute bony abnormalities demonstrated Finalized by Kenneth Rothman MD on 04/09/2024 9:40 AM X-ray pelvis 1 or 2 views Result Date: 04/09/2024 History: Fall with left-sided pain Exam/Technique: Single [...] Kenneth Rothman MD on 04/09/2024 9:37 AM X-ray ankle left minimum 3 views Result Date: 04/09/2024 History: Fall with left ankle bruising Exam/Technique: [...] Kenneth Rothman MD on 04/09/2024 9:32 AM X-ray knee left 3 views Result Date: 04/09/2024 Left Knee: 04/09/2024 9:08 AM. Reason for [...] Angela Keyes MD on 04/09/2024 9:[address] angiogram head Result Date: 04/09/2024 CLINICAL INFORMATION: stroke symptoms unsteady gait and left-sided weakness TECHNIQUE: CT angiogramof the head was performed following intravenous administration [...] near complete occlusion at the mid M1 segmentand anterior division of the M2 segment of [...] small caliber at the P1 segment of theleft posterior cerebral artery grossly stable compared to [...] CONTAINS A SIGNIFICANT RESULT AND/OR RECOMMENDATION, WHICH REQUIRESTHE ATTENTION OF THE LICENSED CAREGIVER RESPONSIBLE FOR THIS PATIENT. THEREFORE, I SPECIFICALLY DESIGNATED THIS REPORT TO BE TELEPHONED BY THE RADIOLOGY DEPARTMENT Finalized by Bonnie Thomson MD on 04/09/2024 8:[address] angiogram carotid Result Date: 04/09/2024 History: Weakness in left side of face and left upper and lower limbs Acute neurological disorder. Acute stroke/TIA Exam/Technique: Bolus arterial phase IV contrast. 3-D and multiplanar reconstructions are provided for CTA of the neck. Volume rendered 3 -D Maximum intensity projection reconstructions constructed under concurrent physician supervision on an independent workstation and reviewed forpurposes of evaluation of the cervical arterial vasculature. Carotid artery narrowing is assessed using the [place] Symptomatic Carotid Endarterectomy Trial (NASCET) method. Comparison: [...] of the cervical vessels and no other arterialabnormalities are depicted. There is degenerative change in the cervical spine without evidence of gross spinal stenosis IMPRESSION: No significant arterial stenoses displayed in All CT scans at this facility use dose modulation, iterative reconstruction, and/or weight based dosing when appropriateto reduce radiation dose to as low as reasonably achievable. Finalized by Kenneth Rothman MD on 04/09/2024 8:[address] brain without contrast stroke alert Result Date: 04/09/2024 CT HEAD WITHOUT IV CONTRAST CLINICAL STATEMENT: Stroke, follow up; assessment of stroke/hemorrhage:Comparison study: TECHNIQUE: Axial views were obtained at 2.5 mm interval through the head without IV contrast. Automatic dose exposure reduction technique utilized. FINDINGS: The midline structures are not deviated. The ventricular system is prominent in keeping with atrophy. The abla and white matter show right-sided periventricular changes that likely reflects old white matter infarct. The posterior fossa is unremarkable. No features of raised intracranial pressure.No intracranial bleed. TheIACs are unremarkable. The cerebellopontine angles are unremarkable. The temporomandibular joints show no abnormality. The osseous structures in the skull base and in the calvarium show no definite abnormality. The orbits are normal. The paranasal sinuses are clear. The mastoid air cells are clear.IMPRESSION: No acute ischemia or infarction. Old infarct right periventricular white matter frontalregion. All CT scans at this facility use dose modulation, iterative reconstruction, and/or weight based dosing when appropriate to reduce radiation dose to as low as reasonably achievable. Finalized by Ramy Clay MD on 04/09/2024 8:10 AM Troponin I BNP Disposition: Transferred to [facility] Discharged Condition: stable Follow Up: ELEAZAR MAYORGA DO in one week Discharge Medications: Medication List CONTINUE taking these medications Instructions Last Dose Given Next Dose Due aspirin 81 mg Take 1 tablet (81 mg total) by mouth in the morning. atorvastatin 40 mg tablet Commonly known as: LIPITOR Take 1 tablet (40 mg total) by mouth nightly. insulin glargine 100 unit/mL (3 mL) insulin pen Commonly known as: LANTUS, SEMGLEE Inject 15 Units under the skin in the morning and 15 Units before bedtime. insulin lispro 100 unit/mL insulin pen Commonly known as: HumaLOG Inject 2-10 Units under the skin 4 (four) times a day with meals and nightly. 151-200, give 2 units. 201-250, give 4 units. 251-300, give 6 units. 301-350, give 8 units. 351-400, give 10 units. Time Spent on discharge is 35 minutes in the examination, evaluation, counseling and review of medications and discharge plan. Copy sent to Dr. ELEAZAR MAYORGA DO documented in this encounterVermont State HospitalVaultize [id number] Progress note* PT/OT/CT TECH - Bhumika Gerard, PT - 04/10/2024 12:17 PM EDT Physical Therapy Evaluation Discharge Recommendations PT Recommendations: Correction Facility Home Recommendations: 24 hour caregiver support for: Post Discharge Therapy Recommendations: Home Physical Therapy SNF/ECF Comments: Patient would benefit from SNF post hospital discharge for further rehabilitationfor safety with balance, transfers, and gait training. Reports independence prior to stroke. Unableto perform transfers or gait this date due to safety concerns. Stave Jointer Support for-: Mobility Deficits, ADL Deficits Past Medical History: Diagnosis Date Arthritis Cataract Diabetes ([facility]) Diabetes mellitus type 2, controlled ([facility]) Fractures Past Surgical History: Procedure Laterality Date CATARACT EXTRACTION EYE SURGERY FRACTURE SURGERY JOINT REPLACEMENT TONSILLECTOMY 6 Clicks: Basic Mobility Turning from your back to your side while in a flat bed without using bed rails?: A lot Moving from lying on your back to sitting on side of flat bed without using bed rails?: A lot Moving to and from bed to a chair (including w/c)?: A lot Standing up from a chair using your arms (e.g. w/c or bedside chair)?: A lot To walk in hospital room?: Total Climbing 3-5 steps with a railing?: Total Scoring 6 Clicks: Basic Mobility Raw Score: 10 [facility] G Code Modifier: CL Modified [place] Level of Disability: Moderately severe disability 0= No symptom at all 1= No significant disability despite symptoms: able to carry out all usual duties and activities 2= Slight disability: unable to carry out all previous activities, but able to look after own affairs without assistance 3= Moderate disability: requiring some help, but able to walk without assistance 4= Moderately severe disability: unable to walk without assistance and unable to attend to own bodily needs without assistance 5- Severe disability: bedridden, incontinent and requiring constant nursing care and attention. 6= Therapy Plan Need for skilled Physical Therapy to address deficits in functional mobility due to a status decline resulting from stroke-like symptoms. PT Treatment/Interventions: ADL retraining, Functional transfer training, UE strengthening/ROM, LE strengthening/ROM, Cognitive reorientation, Balance, Stair training, Bed mobility, Gait training PT Frequency: 5-6days/week PT Duration: 10 days Patient Response to Treatment: Tolerated evaluation without adverse reaction Assessment Patient Assessment Therapy Problem List: Abnormal posture, Decreased ADL status, Decreased balance, Decreased endurance, Decreased gross motor, Decreased high-level ADLs, Decreased mobility, Decreased LE ROM, DecreasedLE strength Patient Response to Treatment: Tolerated evaluation without adverse reaction Mood/Affect: Appropriate for circumstances Rehab Prognosis: Good, With continued PT status post acute discharge, Ongoing therapy assessment needed Visit RN Communication: Yes ([place]) Medical Record Reviewed: Yes PT Type of Visit: Evaluation Activity Therapy Type of Visit: Activities Assessment Precautions Activity: early mobility pass, OK to evalutae per SMOOTH Quintanilla Equipment: (walker, gait belt, IV, pure whick catheter) Weight Bearing Status: (WBAT) Telemetry/Drawer Upfitter: Yes Oxygen Used: room air Other: Left sided weakness Pain Assessment Pain Assessment: 0-10 Pain Score: 4 Pain Type: Acute pain Pain Location: Leg Pain Orientation: Right, Left Pain Descriptors: Aching Home Living Type of Home: Apartment Home Layout: One level, Stairs to enter with rails, Able to live on main level with bedroom/bathroom Stairs to Enter: 2 Hand Rails: Bilateral Stairs in Home: no Bathroom Shower/Tub: Tub/shower unit Bathroom Toilet: Standard Bathroom Equipment: Shower chair Bathroom Accessibility: Accessible via walker Home Equipment: Rolling walker, Other (Comment) (walking stick) Other : (uses front wheeled walker at home) Prior Function Lives With: Alone Receives Help From: Family (sister lives in the same apartment, another sistert takes him to Dr. kuhn) Level of Mobility: Independent with ADLs and functional transfers or gait Homemaking Assistance: Independent ADL / IADL Hand Dominance: Right Hearing / Speech / Vision Hearing: Within Functional Limits Speech: Within Functional Limits Current Vision: Wears glasses only for reading Cognition Orientation Level: Oriented X4 Sensation Overall Sensation Status: Within Functional Limits Perception / Proprioception Overall Status: Exceptions to Within Functional Limits (left sided visual deficits/spatial awareness) Bed Mobility Supine to Sit: Max assist Sit to Supine: Max assist Other: verbal cueing required, head of bed elevated Transfers Sit to Stand: Unable to assess Other: Upon sitting EOB patient had significant lean to L side requiring mod to max assist to remain upright. L sided visual deficits. Unsafe to perform transfers at this time with without 2 person assist. Gait Gait Assistance: Unable to assess Balance Sitting Balance: Static: Poor Sitting Balance: Dynamic: Poor Other: Severe left sided lean. Mod to max assist. Verbal and Visual cueing for proper UE placement LUE Assessment: Exceptions to WFL LLE Assessment: Exceptions to WFL Activity Tolerance Endurance: Tolerates <30 minutes activity WITHOUT vital sign changes Plan Physical Therapy Care Plan Physical Therapy Care Plan (Active) Template: PT - Physical Therapy Problem: Activity Tolerance Dates: Start: 04/10/24 Disciplines: PT Goal: Tolerate 30 minutes of activity WITH rest breaks Dates: Start: 04/10/24 Expected End: 04/19/24 Description: Goal Description: Disciplines: PT Problem: Bed Mobility Dates: Start: 04/10/24 Disciplines: PT Goal: Patient will perform bed mobility with Stand By Assist Dates: Start: 04/10/24 Expected End: 04/19/24 Description: To reduce risk of bed sores. Disciplines: PT Problem: Gait Dates: Start: 04/10/24 Disciplines: PT Goal: Patient will perform gait with Minimum Assist Dates: Start: 04/10/24 Expected End: 04/19/24 Description: Pt will be able to ambulate 50-70 ft with walker and min A to help return to prior level of functioning. Disciplines: PT Problem: Sitting Balance Dates: Start: 04/10/24 Disciplines: PT Goal: Improve balance to good Dates: Start: 04/10/24 Expected End: 04/19/24 Description: To allow for ease with transfers and dressing. Disciplines: PT Problem: Stairs/Curb Dates: Start: 04/10/24 Disciplines: PT Goal: Patient will perform stairs/curb with Minimum Assist Dates: Start: 04/10/24 Expected End: 04/19/24 Description: Pt will be able to ascend and descend 2 steps with B HR's and min A to safely enter household upon hospital discharge. Disciplines: PT Problem: Transfers Dates: Start: 04/10/24 Disciplines: PT Goal: Patient will perform transfers with Contact Guard Dates: Start: 04/10/24 Expected End: 04/19/24 Description: To demonstrate improved LE strength and endurance. Disciplines: PT Physical Therapy Care Plan (Resolved) There are no resolved problems. Principal Problem: Stroke-like symptoms Active Problems: Type 2 diabetes mellitus with hyperglycemia, with long-term current use of insulin ([facility] Mixed hyperlipidemia Gait instability Acute renal failure with acute renal cortical necrosis superimposed on stage 3a chronic kidney disease ([facility]) Geostellar06-15-2024 Miscellaneous Notes* PT/OT/CT TECH - Bhumika Gee, PT - 04/10/2024 12:17 PM EDT Physical Therapy Evaluation Discharge Recommendations PT Recommendations: [facility] Home Recommendations: 24 hour caregiver support for: Post Discharge Therapy Recommendations: Home Physical Therapy SNF/ECF Comments: Patient would benefit from SNF post hospital discharge for further rehabilitationfor safety with balance, transfers, and gait training. Reports independence prior to stroke. Unableto perform transfers or gait this date due to safety concerns. Stave Jointer Support for-: Mobility Deficits, ADL Deficits Past Medical History: Diagnosis Date Arthritis Cataract Diabetes ([facility]) Diabetes mellitus type 2, controlled ([facility]) Fractures Past Surgical History: Procedure Laterality Date CATARACT EXTRACTION EYE SURGERY FRACTURE SURGERY JOINT REPLACEMENT TONSILLECTOMY 6 Clicks: Basic Mobility Turning from your back to your side while in a flat bed without using bed rails?: A lot Moving from lying on your back to sitting on side of flat bed without using bed rails?: A lot Moving to and from bed to a chair (including w/c)?: A lot Standing up from a chair using your arms (e.g. w/c or bedside chair)?: A lot To walk in hospital room?: Total Climbing 3-5 steps with a railing?: Total Scoring 6 Clicks: Basic Mobility Raw Score: 10 [facility] G Code Modifier: CL Modified [place] Level of Disability: Moderately severe disability 0= No symptom at all 1= No significant disability despite symptoms: able to carry out all usual duties and activities 2= Slight disability: unable to carry out all previous activities, but able to look after own affairs without assistance 3= Moderate disability: requiring some help, but able to walk without assistance 4= Moderately severe disability: unable to walk without assistance and unable to attend to own bodily needs without assistance 5- Severe disability: bedridden, incontinent and requiring constant nursing care and attention. 6= Therapy Plan Need for skilled Physical Therapy to address deficits in functional mobility due to a status decline resulting from stroke-like symptoms. PT Treatment/Interventions: ADL retraining, Functional transfer training, UE strengthening/ROM, LE strengthening/ROM, Cognitive reorientation, Balance, Stair training, Bed mobility, Gait training PT Frequency: 5-6days/week PT Duration: 10 days Patient Response to Treatment: Tolerated evaluation without adverse reaction Assessment Patient Assessment Therapy Problem List: Abnormal posture, Decreased ADL status, Decreased balance, Decreased endurance, Decreased gross motor, Decreased high-level ADLs, Decreased mobility, Decreased LE ROM, DecreasedLE strength Patient Response to Treatment: Tolerated evaluation without adverse reaction Mood/Affect: Appropriate for circumstances Rehab Prognosis: Good, With continued PT status post acute discharge, Ongoing therapy assessment needed Visit RN Communication: Yes ([place]) Medical Record Reviewed: Yes PT Type of Visit: Evaluation Activity Therapy Type of Visit: Activities Assessment Precautions Activity: early mobility pass, OK to evalutae per SMOOTH Quintanilla Equipment: (walker, gait belt, IV, pure whick catheter) Weight Bearing Status: (WBAT) Telemetry/Drawer Upfitter: Yes Oxygen Used: room air Other: Left sided weakness Pain Assessment Pain Assessment: 0-10 Pain Score: 4 Pain Type: Acute pain Pain Location: Leg Pain Orientation: Right, Left Pain Descriptors: Aching Home Living Type of Home: Apartment Home Layout: One level, Stairs to enter with rails, Able to live on main level with bedroom/bathroom Stairs to Enter: 2 Hand Rails: Bilateral Stairs in Home: no Bathroom Shower/Tub: Tub/shower unit Bathroom Toilet: Standard Bathroom Equipment: Shower chair Bathroom Accessibility: Accessible via walker Home Equipment: Rolling walker, Other (Comment) (walking stick) Other : (uses front wheeled walker at home) Prior Function Lives With: Alone Receives Help From: Family (sister lives in the same apartment, another sistert takes him to Dr. kuhn) Level of Mobility: Independent with ADLs and functional transfers or gait Homemaking Assistance: Independent ADL / IADL Hand Dominance: Right Hearing / Speech / Vision Hearing: Within Functional Limits Speech: Within Functional Limits Current Vision: Wears glasses only for reading Cognition Orientation Level: Oriented X4 Sensation Overall Sensation Status: Within Functional Limits Perception / Proprioception Overall Status: Exceptions to Within Functional Limits (left sided visual deficits/spatial awareness) Bed Mobility Supine to Sit: Max assist Sit to Supine: Max assist Other: verbal cueing required, head of bed elevated Transfers Sit to Stand: Unable to assess Other: Upon sitting EOB patient had significant lean to L side requiring mod to max assist to remain upright. L sided visual deficits. Unsafe to perform transfers at this time with without 2 person assist. Gait Gait Assistance: Unable to assess Balance Sitting Balance: Static: Poor Sitting Balance: Dynamic: Poor Other: Severe left sided lean. Mod to max assist. Verbal and Visual cueing for proper UE placement LUE Assessment: Exceptions to WFL LLE Assessment: Exceptions to WFL Activity Tolerance Endurance: Tolerates <30 minutes activity WITHOUT vital sign changes Plan Physical Therapy Care Plan Physical Therapy Care Plan (Active) Template: PT - Physical Therapy Problem: Activity Tolerance Dates: Start: 04/10/24 Disciplines: PT Goal: Tolerate 30 minutes of activity WITH rest breaks Dates: Start: 04/10/24 Expected End: 04/19/24 Description: Goal Description: Disciplines: PT Problem: Bed Mobility Dates: Start: 04/10/24 Disciplines: PT Goal: Patient will perform bed mobility with Stand By Assist Dates: Start: 04/10/24 Expected End: 04/19/24 Description: To reduce risk of bed sores. Disciplines: PT Problem: Gait Dates: Start: 04/10/24 Disciplines: PT Goal: Patient will perform gait with Minimum Assist Dates: Start: 04/10/24 Expected End: 04/19/24 Description: Pt will be able to ambulate 50-70 ft with walker and min A to help return to prior level of functioning. Disciplines: PT Problem: Sitting Balance Dates: Start: 04/10/24 Disciplines: PT Goal: Improve balance to good Dates: Start: 04/10/24 Expected End: 04/19/24 Description: To allow for ease with transfers and dressing. Disciplines: PT Problem: Stairs/Curb Dates: Start: 04/10/24 Disciplines: PT Goal: Patient will perform stairs/curb with Minimum Assist Dates: Start: 04/10/24 Expected End: 04/19/24 Description: Pt will be able to ascend and descend 2 steps with B HR's and min A to safely enter household upon hospital discharge. Disciplines: PT Problem: Transfers Dates: Start: 04/10/24 Disciplines: PT Goal: Patient will perform transfers with Contact Guard Dates: Start: 04/10/24 Expected End: 04/19/24 Description: To demonstrate improved LE strength and endurance. Disciplines: PT Physical Therapy Care Plan (Resolved) There are no resolved problems. Principal Problem: Stroke-like symptoms Active Problems: Type 2 diabetes mellitus with hyperglycemia, with long-term current use of insulin ([facility]) Mixed hyperlipidemia Gait instability Acute renal failure with acute renal cortical necrosis superimposed on stage 3a chronic kidney disease ([facility]) * Telehealth Note - Alexandra Barrientos APRN-HIDE HANDLER - 04/10/2024 11:50 AM EDT Images from the original note were not included. Tele-StrokeTelemedicine Consult Note Consent Statement: I discussed risks, benefits, and alternatives of a real-time synchronous audiovisual consultation with the patient (and any accompanying persons) including the risks that the patient's personal health details and medical records will be discussed over real-time, synchronous, interactive video/audio/telecommunication technology, the visit will not be recorded without the express consent of both the provider and the patient, and that there are some limitations compared to [id number] evaluations. We elected to proceed. TELESTROKE FOLLOW UP PROGRESS NOTE SUBJECTIVE: Vashti Massey is a 68 y.o. White or male who presented to [facility] with falls. HE also was noted to have worsening weakness from his baseline. CTA yesterday of the head revealed right distal m1 stenosis. And MRI brain without contrast revealed small areas of right hemispheric ischemic stroke in the right mca distribution. Patient this morning has worsened. It is unclear when his left side became as weak. He now has gazepalsy with neglect. I discussed with nursing, patient, and admitting physician about transferring patient to [facility]. All agreeable. ROS: Neurological ROS: weakness on the left side CURRENT MEDICATIONS REVIEWED: Yes PERTINENT MEDICATIONS ARE: aspirin, 81 mg, oral, Daily atorvastatin, 40 mg, oral, Nightly clopidogreL, 75 mg, oral, Daily enoxaparin (LOVENOX) injection, 40 mg, subcutaneous, Daily insulin glargine, 15 Units, subcutaneous, BID Sodium chloride 75 mL/hr PHYSICAL EXAM: Vital Signs: Blood pressure 132/50, pulse 82, temperature 36.6 C (97.8 F), temperature source Oral,resp. rate 16, height 177.8 cm (5' 10 ), weight 106.5 kg (234 lb 12.6 oz), SpO2 95%. Respiratory Source: O2 Device: None (Room air) Admission Weight: Weight: 110.7 kg (244 lb 0.8 oz) NIH Stroke Scale 1a Level of consciousness: 0=alert; keenly responsive 1b. LOC questions: 0=Performs both tasks correctly 1c. LOC commands: 0=Performs both tasks correctly 2. Best Gaze: 1=partial gaze palsy 3. Visual: 2=Complete hemianopia 4. Facial Palsy: 0=Normal symmetric movement 5a. Motor left arm: 3=No effort against gravity, limb falls 5b. Motor right arm: 0=No drift, limb holds 90 (or 45) degrees for full 10 seconds 6a. motor left le=No effort against gravity, limb falls 6b Motor right le=No drift, limb holds 90 (or 45) degrees for full 10 seconds 7. Limb Ataxia: 0=Absent 8. Sensory: 1=Mild to moderate sensory loss; patient feels pinprick is less sharp or is dull on theaffected side; there is a loss of superficial pain with pinprick but patient is aware He is being touched 9. Best Language: 0=No aphasia, normal 10. Dysarthria: 0=Normal 11. Extinction and Inattention: 2=Profound brandi-inattention or brandi-inattention to more than one modality. Does not recognize own hand or orients only to one side of space NIHSS=13 General Appearance: ill appearing, cooperative, follwos commands Head: Normocephalic, without obvious abnormality, atraumatic Eyes: Pupils are equal. EOMIs. Vision appears intact, although exam is somewhat limited. Lungs: non-labored Heart: {on monitor. Abdomen: no overt distention Extremities: extremities normal, atraumatic, no cyanosis or edema Skin: Skin color, texture, turgor normal. No rashes or lesions Neurologic: Alert and oriented. See NIHSS. LAB REVIEW Latest Reference Range & Units 04/10/24 04:25 White Blood Cells 4.0 - 11.0 X10E9/L 8.5 RBC count 4.10 - 5.70 X10E12/L 2.86 (L) Hemoglobin 13.0 - 17.0 g/dL 8.7 (L) Hematocrit 39 - 49 % 25.1 (L) MCV 80 - 100 fL 88 MCH 27 - 34 pg 30.6 MPV 7 - 12 fL 7.4 MCHC 32 - 36 g/dL 34.8 RDW 11.5 - 15.0 % 14.3 Platelets 150 - 450 X10E9/L 285 % monocytes % 5.0 % neutrophils % 78.9 % Basophils % 0.3 % eosinophils % 0.1 % lymphocytes % 15.7 Basophils Absolute 0.0 - 0.2 X10E9/L 0.0 Eosinophils Absolute 0.0 - 0.4 X10E9/L 0.0 Lymphocytes Absolute 1.0 - 3.5 X10E9/L 1.3 Monocytes Absolute 0 - 0.9 X10E9/L 0.4 Neutrophils Absolute (A) 1.5 - 6.6 X10E9/L 6.7 (H) Sodium 134 - 146 mmol/L 137 Potassium 3.5 - 5.0 mmol/L 4.1 Chloride 98 - 109 mmol/L 106 CO2 22 - 32 mmol/L 20 (L) Glucose 65 - 99 mg/dL 195 (H) Creatinine 0.70 - 1.20 mg/dL 1.02 BUN 5 - 27 mg/dL 86 (H) Calcium 8.5 - 10.5 mg/dL 8.6 Total Protein 6.0 - 8.0 g/dL 6.1 Albumin 3.2 - 5.3 g/dL 3.8 Total bilirubin 0.3 - 1.2 mg/dL 0.4 AST 0 - 41 U/L 14 ALT 0 - 40 U/L 13 Alkaline phosphatase 39 - 130 U/L 55 Anion gap 5 - 15 mmol/L 11 eGFR (CKD-EPI)non-race dependent >59 ml/min/1.73sq.m 79 Magnesium 1.8 - 2.6 mg/dL 2.3 Phosphorus 2.4 - 4.9 mg/dL 4.2 (L): Data is abnormally low (H): Data is abnormally high IMAGING Imaging was reviewed yesterday STROKE RISKS: Diabetes Hypertension Hyperlipidemia Intracranial atherosclerosis ASSESSMENT/ PLAN: Right Hemispheric Ischemic stroke 2/2 right severe m1 stenosis - as evidence by severe left sided weakness, gaze palsy and neglect - Stat fluids 500 mLx1 continue continuous fluids - STAT CT brain, CTA head and carotids to assess for LVO - continue DAPt, lipitor - echocardiogram remains pending - plan for transfer to [facility] - start with stepdown. If CTA positive for LVO patient will come to ICU 2. Uncontrolled diabetes - repeat A1C recommended - Aggressive blood glucose control as this is likely why his vessels are worsening 3. Hyperliipdemia - statin therapy 4. Hypertension - maintain permissive hypertension 5. Intracranial Atherosclerosis - risk factor management: A1C<7, LDL<70, maintain hydration 6. DAISY - continue fluids 7. Anemia - rule out GI bleed. Telestroke evaluation was requested on this patient. To the best of my ability the purpose of telestroke was reviewed with patient prior to initiation of visit and verbal consent was obtained. Time spent on this visit was 35 minutes. I, ALYSON Patel, assisted with documentation during the assessment of this patient. This patient was discussed with my attending Dr. Rice. [id number] Telestroke FU 35 minutes For any additional questions, please contact the [facility] Telestroke/ Stroke service. [facility] ALYSON Perez 04/10/24 1422 ALYSON Perez 04/10/24 1422 * Plan of Care - Ivy Clark RN - 04/10/2024 12:47 AM EDT Problem: Potential for Compromised Skin Integrity Goal: Skin integrity is maintained or improved Description: Patient's goal is: INTERVENTIONS 1. Perform initial skin assessment on admission and as needed 2. Turn patient every 2 hours and PRN 3. Relieve pressure to bony prominences 4. Avoid shearing 5. Keep skin clean and dry 6. Alternate a full bath with partial baths for elderly 7. Apply lotion/moisturizer on skin 8. Monitor patient's hygiene practices 9. Float heels 10. Collaborate with interdisciplinary team and initiate plans and interventions as needed Outcome: Progressing Note: Evaluation of progress towards goal: Will assess patient ability to turn self. Will assist inreposition when needed. * Plan of Care - S. Aleksandra Buckley RN - 04/09/2024 2:22 PM EDT Problem: Potential for Compromised Skin Integrity Goal: Skin integrity is maintained or improved Description: Patient's goal is: INTERVENTIONS 1. Perform initial skin assessment on admission and as needed 2. Turn patient every 2 hours and PRN 3. Relieve pressure to bony prominences 4. Avoid shearing 5. Keep skin clean and dry 6. Alternate a full bath with partial baths for elderly 7. Apply lotion/moisturizer on skin 8. Monitor patient's hygiene practices 9. Float heels 10. Collaborate with interdisciplinary team and initiate plans and interventions as needed Outcome: Progressing Note: Evaluation of progress towards goal: Maintain skin integrity and tissue integrity Goal: Patient's nutritional intake is adequate Description: Patient's goal is: INTERVENTIONS 1. Assess and monitor food intake and supplements, patient food preferences, nausea, vomiting, labs, oral cavity (gums, teeth, tongue, mucosa), proper denture fit, and cultural beliefs 2. Monitor for signs of hypoglycemia and hyperglycemia 3. Collaborate with interdisciplinary team and initiate plan and interventions as ordered 4. Monitor patient's weight 5. Assist patient with meals/food selection 6. Assist patient with eating 7. Allow adequate time for meals 8. Provide pleasant environment during mealtime 9. Increase social contact during mealtimes 10. Plan activities to conserve energy 11. Encourage/perform oral hygiene as appropriate 12. Encourage patient to take dietary supplement as ordered 13. Collaborate with clinical glass bulb machine adjuster 14. Include patient/ patient's agricultural sales representative in decisions related to nutrition Outcome: Progressing Note: Evaluation of progress towards goal: Patient understands the importance of proper nutrition to aid in healing. * Plan of Care - S. Aleksandra Colon-Eliz, RN - 04/09/2024 2:10 PM EDT Problem: Potential for Compromised Skin Integrity Goal: Skin integrity is maintained or improved Description: Patient's goal is: INTERVENTIONS 1. Perform initial skin assessment on admission and as needed 2. Turn patient every 2 hours and PRN 3. Relieve pressure to bony prominences 4. Avoid shearing 5. Keep skin clean and dry 6. Alternate a full bath with partial baths for elderly 7. Apply lotion/moisturizer on skin 8. Monitor patient's hygiene practices 9. Float heels 10. Collaborate with interdisciplinary team and initiate plans and interventions as needed Outcome: Progressing Note: Evaluation of progress towards goal: Maintain skin integrity and tissue integrity Goal: Patient's nutritional intake is adequate Description: Patient's goal is: INTERVENTIONS 1. Assess and monitor food intake and supplements, patient food preferences, nausea, vomiting, labs, oral cavity (gums, teeth, tongue, mucosa), proper denture fit, and cultural beliefs 2. Monitor for signs of hypoglycemia and hyperglycemia 3. Collaborate with interdisciplinary team and initiate plan and interventions as ordered 4. Monitor patient's weight 5. Assist patient with meals/food selection 6. Assist patient with eating 7. Allow adequate time for meals 8. Provide pleasant environment during mealtime 9. Increase social contact during mealtimes 10. Plan activities to conserve energy 11. Encourage/perform oral hygiene as appropriate 12. Encourage patient to take dietary supplement as ordered 13. Collaborate with clinical glass bulb machine adjuster 14. Include patient/ patient's agricultural sales representative in decisions related to nutrition Outcome: Progressing Note: Evaluation of progress towards goal: Patient understands the importance of proper nutrition to aid in healing. * Plan of Care - Rosa M Buckley RN - 04/09/2024 11:35 AM EDT Problem: Potential for Compromised Skin Integrity Goal: Skin integrity is maintained or improved Description: Patient's goal is: INTERVENTIONS 1. Perform initial skin assessment on admission and as needed 2. Turn patient every 2 hours and PRN 3. Relieve pressure to bony prominences 4. Avoid shearing 5. Keep skin clean and dry 6. Alternate a full bath with partial baths for elderly 7. Apply lotion/moisturizer on skin 8. Monitor patient's hygiene practices 9. Float heels 10. Collaborate with interdisciplinary team and initiate plans and interventions as needed Outcome: Progressing Note: Evaluation of progress towards goal: Maintain skin integrity and tissue integrity Goal: Patient's nutritional intake is adequate Description: Patient's goal is: INTERVENTIONS 1. Assess and monitor food intake and supplements, patient food preferences, nausea, vomiting, labs, oral cavity (gums, teeth, tongue, mucosa), proper denture fit, and cultural beliefs 2. Monitor for signs of hypoglycemia and hyperglycemia 3. Collaborate with interdisciplinary team and initiate plan and interventions as ordered 4. Monitor patient's weight 5. Assist patient with meals/food selection 6. Assist patient with eating 7. Allow adequate time for meals 8. Provide pleasant environment during mealtime 9. Increase social contact during mealtimes 10. Plan activities to conserve energy 11. Encourage/perform oral hygiene as appropriate 12. Encourage patient to take dietary supplement as ordered 13. Collaborate with clinical glass bulb machine adjuster 14. Include patient/ patient's agricultural sales representative in decisions related to nutrition Outcome: Progressing Note: Evaluation of progress towards goal: Patient understands the importance of proper nutrition to aid in healing. * Telehealth Consult - Rajesh Rice MD - 04/09/2024 11:00 AM EDT Images from the original note were not included. Consults Tele-Stroke Telemedicine Consult Note Consent Statement: I discussed risks, benefits, and alternatives of a real-time synchronous audiovisual consultation with the patient (and any accompanying persons) including the risks that the patient's personal health details and medical records will be discussed over real-time, synchronous, interactive video/audio/telecommunication technology, the visit will not be recorded without the express consent of both the provider and the patient, and that there are some limitations compared to [id number] evaluations. We elected to proceed. 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 Patient presented this morning to [facility] Emergency Department with stroke-like symptoms, anemia, elevated troponin, DAISY. Patient states over the course of the last week that he has had multiple falls early in the morning upon wakening. Patient fell this Am propting admission. His left sided weakness is worse than normal. Non contrast CT brain did not reveal acute changes. CTA head and carotids reveal right mca distal M1 stenosis. Mri brain revealed punctate area of ischemic in right mca distribution. Patient also noted to have DAISY, anemia, hyperglycemia and elevate troponin. Patient is lying on stretcher. He appears ill. Has left sided drift, left facial droop that corrects with smile. He is covered in bruises. Patient states he has been living on his own. Does not use ambulatory device at baseline. Last known well: 1 week ago. Though weaker this am Current use of anticoagulants: No, no AC Past Medical History: Diagnosis Date Arthritis Cataract Diabetes [place] Diabetes mellitus type 2, controlled ([facility]) Fractures Past Surgical History: Procedure Laterality Date CATARACT EXTRACTION EYE SURGERY FRACTURE SURGERY JOINT REPLACEMENT TONSILLECTOMY Medication List ASK your doctor about these medications Instructions Last Dose Given Next Dose Due aspirin 81 mg Take 1 tablet (81 mg total) by mouth in the morning. atorvastatin 40 mg tablet Commonly known as: LIPITOR Take 1 tablet (40 mg total) by mouth nightly. insulin glargine 100 unit/mL (3 mL) insulin pen Commonly known as: LANTUS, SEMGLEE Inject 15 Units under the skin in the morning and 15 Units before bedtime. insulin lispro 100 unit/mL insulin pen Commonly known as: HumaLOG Inject 2-10 Units under the skin 4 (four) times a day with meals and nightly. 151-200, give 2 units. 201-250, give 4 units. 251-300, give 6 units. 301-350, give 8 units. 351-400, give 10 units. meloxicam 15 mg tablet Commonly known as: MOBIC TAKE 1 TABLET(15 MG) BY MOUTH IN THE MORNING Prior to Admission medications Not on File No current facility-administered medications on file prior to encounter. Current Outpatient Medications on File Prior to Encounter Medication Sig Dispense Refill aspirin 81 mg Take 1 tablet (81 mg total) by mouth in the morning. 30 tablet 1 atorvastatin (LIPITOR) 40 mg tablet Take 1 tablet (40 mg total) by mouth nightly. (Patient taking differently: Take 1 tablet (40 mg total) by mouth nightly. Pt states he is not taking) 30 tablet 1 insulin glargine (LANTUS, SEMGLEE) 100 unit/mL (3 mL) insulin pen Inject 15 Units under the skin inthe morning and 15 Units before bedtime. (Patient taking differently: Inject 15 Units under the skin Three (3) times daily after meals.) 15 mL 12 insulin lispro (HumaLOG) 100 unit/mL insulin pen Inject 2-10 Units under the skin 4 (four) times a day with meals and nightly. 151-200, give 2 units. 201- 250, give 4 units. 251-300, give 6 units. 301-350, give 8 units. 351-400, give 10 units. 15 mL 12 meloxicam (MOBIC) 15 mg tablet TAKE 1 TABLET(15 MG) BY MOUTH IN THE MORNING 30 tablet 2 No Known Allergies TOBACCO:.<1ppd ETOH:no RECREATIONAL DRUG USE: no Family History Problem Relation Age of Onset Cancer Mother Brain cancer Father No family history on file. Physical Exam: Vitals: 04/09/24 1414 BP: 111/57 Pulse: 91 Resp: 22 Temp: 36.5 C (97.7 F) SpO2: 93% Please note that parts of the physical exam were performed with assistance from bedside nursing staff. NIH Stroke Scale 1a Level of consciousness: 0=alert; keenly responsive 1b. LOC questions: 0=Performs both tasks correctly 1c. LOC commands: 0=Performs both tasks correctly 2. Best Gaze: 0=normal 3. Visual: 0=No visual loss 4. Facial Palsy: 1=Minor paralysis (flattened nasolabial fold, asymmetric on smiling) 5a. Motor left arm: 1=Drift, limb holds 90 (or 45) degrees but drifts down before full 10 seconds: does not hit bed 5b. Motor right arm: 0=No drift, limb holds 90 (or 45) degrees for full 10 seconds 6a. motor left le=Drift, limb holds 90 (or 45) degrees but drifts down before full 10 seconds: does not hit bed 6b Motor right le=No drift, limb holds 90 (or 45) degrees for full 10 seconds 7. Limb Ataxia: 0=Absent 8. Sensory: 0=Normal; no sensory loss 9. Best Language: 0=No aphasia, normal 10. Dysarthria: 0=Normal 11. Extinction and Inattention: 0=No abnormality NIHSS3 General Appearance: ill appearing, cooperative, follows commands Head: Normocephalic, without obvious abnormality Eyes: EOMIs. Vision seems intact, although exam is limited. Lungs: non-labored. Heart: on monitor Abdomen: soft, non-tender; bowel sounds normal; no masses, no organomegaly Extremities: extremities normal, atraumatic, no cyanosis or edema Skin: Skin color, texture, turgor normal. No rashes or lesions Neurologic: Grossly normal Data Reviewed: Labs: Lipid Panel: Lab Results Component Value Date CHOL 219 (H) 10/28/2023 TRIG 164 (H) 10/28/2023 HDL 43 10/28/2023 CBC: Lab Results Component Value Date WBC 9.7 04/09/2024 HGB 9.8 (L) 04/09/2024 HCT 28.3 (L) 04/09/2024 MCV 89 04/09/2024 RDW 13.9 04/09/2024 PLT 330 04/09/2024 BMP: Lab Results Component Value Date K 4.7 04/09/2024 CL 102 04/09/2024 CO2 17 (L) 04/09/2024 BUN 112 (H) 04/09/2024 CREATININE 1.49 (H) 04/09/2024 EGFR 50 (L) 04/09/2024 GLU 258 (H) 04/09/2024 PT/INR: Lab Results Component Value Date INR 1.2 (H) 04/09/2024 PTT: No results found for: APTT Troponin: Lab Results Component Value Date TROPONINI 0.01 10/26/2023 HgBA1c: Lab Results Component Value Date HGBA1C >15.5 (H) 10/26/2023 HGBA1C 15.3 (H) 10/26/2023 Radiology: CT head: no acute process CTA: right mca stenosis MRI brain: small puncate infarct in right mca distribution ASSESSMENT & PLAN Acute right hemispheric ischemic stroke - 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 If patient found to have GI bleed, will only continue aspirin - PT/OT/ST - likely will need placement - continue statin therapy - recommend repeat echocardiogram Uncontrolled diabetes - repeat A1C recommended - Aggressive blood glucose control as this is likely why his vessels are worsening Hyperliipdemia - statin therapy Hypertension - maintain permissive hypertension Intracranial Atherosclerosis - risk factor management: A1C<7, LDL<70, maintain hydration DAISY - recommend fluids Anemia - rule out GI bleed. Additional Recommendations: Admit to [facility]. We will continue to follow along In preparation of caring for this patient, IAlexandra APRN-CNP, assisted with documentation during the assessment of this patient. If you have any further questions please feel free to contact the Telestroke/ Stroke Team. Thank you for asking us to be part of this patient's care. [id number] Telestroke Consult from 30-50 minutes This note was completed using a voice business owner/engineer system. Every effort was made to ensure accuracy; however, inadvertent computerized business owner/engineer errors may be present In preparation of caring for this patient, I, Rajesh Rice MD, was the primary provider of care for this patient. I personally reviewed previous medical history, laboratory studies, neuro-imaging, andcompleted a face to face physical assessment on this patient via camera. To the best of my ability,the assessment and plan was discussed with patient and bedside staff. [facility] Progress note* Telehealth Note - ALYSON Perez - 04/10/2024 11:50 AM EDT Images from the original note were not included. Tele-StrokeTelemedicine Consult Note Consent Statement: I discussed risks, benefits, and alternatives of a real-time synchronous audiovisual consultation with the patient (and any accompanying persons) including the risks that the patient's personal health details and medical records will be discussed over real-time, synchronous, interactive video/audio/telecommunication technology, the visit will not be recorded without the express consent of both the provider and the patient, and that there are some limitations compared to [id number] evaluations. We elected to proceed. TELESTROKE FOLLOW UP PROGRESS NOTE SUBJECTIVE: Vashti Massey is a 68 y.o. White or male who presented to [facility] with falls. HE also was noted to have worsening weakness from his baseline. CTA yesterday of the head revealed right distal m1 stenosis. And MRI brain without contrast revealed small areas of right hemispheric ischemic stroke in the right mca distribution. Patient this morning has worsened. It is unclear when his left side became as weak. He now has gazepalsy with neglect. I discussed with nursing, patient, and admitting physician about transferring patient to [facility]. All agreeable. ROS: Neurological ROS: weakness on the left side CURRENT MEDICATIONS REVIEWED: Yes PERTINENT MEDICATIONS ARE: aspirin, 81 mg, oral, Daily atorvastatin, 40 mg, oral, Nightly clopidogreL, 75 mg, oral, Daily enoxaparin (LOVENOX) injection, 40 mg, subcutaneous, Daily insulin glargine, 15 Units, subcutaneous, BID Sodium chloride 75 mL/hr PHYSICAL EXAM: Vital Signs: Blood pressure 132/50, pulse 82, temperature 36.6 C (97.8 F), temperature source Oral,resp. rate 16, height 177.8 cm (5' 10 ), weight 106.5 kg (234 lb 12.6 oz), SpO2 95%. Respiratory Source: O2 Device: None (Room air) Admission Weight: Weight: 110.7 kg (244 lb 0.8 oz) NIH Stroke Scale 1a Level of consciousness: 0=alert; keenly responsive 1b. LOC questions: 0=Performs both tasks correctly 1c. LOC commands: 0=Performs both tasks correctly 2. Best Gaze: 1=partial gaze palsy 3. Visual: 2=Complete hemianopia 4. Facial Palsy: 0=Normal symmetric movement 5a. Motor left arm: 3=No effort against gravity, limb falls 5b. Motor right arm: 0=No drift, limb holds 90 (or 45) degrees for full 10 seconds 6a. motor left le=No effort against gravity, limb falls 6b Motor right le=No drift, limb holds 90 (or 45) degrees for full 10 seconds 7. Limb Ataxia: 0=Absent 8. Sensory: 1=Mild to moderate sensory loss; patient feels pinprick is less sharp or is dull on theaffected side; there is a loss of superficial pain with pinprick but patient is aware He is being touched 9. Best Language: 0=No aphasia, normal 10. Dysarthria: 0=Normal 11. Extinction and Inattention: 2=Profound brandi-inattention or brandi-inattention to more than one modality. Does not recognize own hand or orients only to one side of space NIHSS=13 General Appearance: ill appearing, cooperative, follwos commands Head: Normocephalic, without obvious abnormality, atraumatic Eyes: Pupils are equal. EOMIs. Vision appears intact, although exam is somewhat limited. Lungs: non-labored Heart: {on monitor. Abdomen: no overt distention Extremities: extremities normal, atraumatic, no cyanosis or edema Skin: Skin color, texture, turgor normal. No rashes or lesions Neurologic: Alert and oriented. See NIHSS. LAB REVIEW Latest Reference Range & Units 04/10/24 04:25 White Blood Cells 4.0 - 11.0 X10E9/L 8.5 RBC count 4.10 - 5.70 X10E12/L 2.86 (L) Hemoglobin 13.0 - 17.0 g/dL 8.7 (L) Hematocrit 39 - 49 % 25.1 (L) MCV 80 - 100 fL 88 MCH 27 - 34 pg 30.6 MPV 7 - 12 fL 7.4 MCHC 32 - 36 g/dL 34.8 RDW 11.5 - 15.0 % 14.3 Platelets 150 - 450 X10E9/L 285 % monocytes % 5.0 % neutrophils % 78.9 % Basophils % 0.3 % eosinophils % 0.1 % lymphocytes % 15.7 Basophils Absolute 0.0 - 0.2 X10E9/L 0.0 Eosinophils Absolute 0.0 - 0.4 X10E9/L 0.0 Lymphocytes Absolute 1.0 - 3.5 X10E9/L 1.3 Monocytes Absolute 0 - 0.9 X10E9/L 0.4 Neutrophils Absolute (A) 1.5 - 6.6 X10E9/L 6.7 (H) Sodium 134 - 146 mmol/L 137 Potassium 3.5 - 5.0 mmol/L 4.1 Chloride 98 - 109 mmol/L 106 CO2 22 - 32 mmol/L 20 (L) Glucose 65 - 99 mg/dL 195 (H) Creatinine 0.70 - 1.20 mg/dL 1.02 BUN 5 - 27 mg/dL 86 (H) Calcium 8.5 - 10.5 mg/dL 8.6 Total Protein 6.0 - 8.0 g/dL 6.1 Albumin 3.2 - 5.3 g/dL 3.8 Total bilirubin 0.3 - 1.2 mg/dL 0.4 AST 0 - 41 U/L 14 ALT 0 - 40 U/L 13 Alkaline phosphatase 39 - 130 U/L 55 Anion gap 5 - 15 mmol/L 11 eGFR (CKD-EPI)non-race dependent >59 ml/min/1.73sq.m 79 Magnesium 1.8 - 2.6 mg/dL 2.3 Phosphorus 2.4 - 4.9 mg/dL 4.2 (L): Data is abnormally low (H): Data is abnormally high IMAGING Imaging was reviewed yesterday STROKE RISKS: Diabetes Hypertension Hyperlipidemia Intracranial atherosclerosis ASSESSMENT/ PLAN: Right Hemispheric Ischemic stroke 2/2 right severe m1 stenosis - as evidence by severe left sided weakness, gaze palsy and neglect - Stat fluids 500 mLx1 continue continuous fluids - STAT CT brain, CTA head and carotids to assess for LVO - continue DAPt, lipitor - echocardiogram remains pending - plan for transfer to [facility] - start with stepdown. If CTA positive for LVO patient will come to ICU 2. Uncontrolled diabetes - repeat A1C recommended - Aggressive blood glucose control as this is likely why his vessels are worsening 3. Hyperliipdemia - statin therapy 4. Hypertension - maintain permissive hypertension 5. Intracranial Atherosclerosis - risk factor management: A1C<7, LDL<70, maintain hydration 6. DAISY - continue fluids 7. Anemia - rule out GI bleed. Telestroke evaluation was requested on this patient. To the best of my ability the purpose of telestroke was reviewed with patient prior to initiation of visit and verbal consent was obtained. Time spent on this visit was 35 minutes. I, ALYSON Patel, assisted with documentation during the assessment of this patient. This patient was discussed with my attending Dr. Rice. [id number] Telestroke FU 35 minutes For any additional questions, please contact the [facility] Telestroke/ Stroke service. [facility] Urgent ALYSON Perez 04/10/24 1422 ALYSON Perez 04/10/24 1422 [facility] Work Phone: [phone]) 569-402606-15-2024 Plan of care note* Plan of Care - Ivy Clark RN - 04/10/2024 12:47 AM EDT Problem: Potential for Compromised Skin Integrity Goal: Skin integrity is maintained or improved Description: Patient's goal is: INTERVENTIONS 1. Perform initial skin assessment on admission and as needed 2. Turn patient every 2 hours and PRN 3. Relieve pressure to bony prominences 4. Avoid shearing 5. Keep skin clean and dry 6. Alternate a full bath with partial baths for elderly 7. Apply lotion/moisturizer on skin 8. Monitor patient's hygiene practices 9. Float heels 10. Collaborate with interdisciplinary team and initiate plans and interventions as needed Outcome: Progressing Note: Evaluation of progress towards goal: Will assess patient ability to turn self. Will assist inreposition when needed. [facility] Plan of care note* Plan of Care - Rosa M Buckley RN - 04/09/2024 2:22 PM EDT Problem: Potential for Compromised Skin Integrity Goal: Skin integrity is maintained or improved Description: Patient's goal is: INTERVENTIONS 1. Perform initial skin assessment on admission and as needed 2. Turn patient every 2 hours and PRN 3. Relieve pressure to bony prominences 4. Avoid shearing 5. Keep skin clean and dry 6. Alternate a full bath with partial baths for elderly 7. Apply lotion/moisturizer on skin 8. Monitor patient's hygiene practices 9. Float heels 10. Collaborate with interdisciplinary team and initiate plans and interventions as needed Outcome: Progressing Note: Evaluation of progress towards goal: Maintain skin integrity and tissue integrity Goal: Patient's nutritional intake is adequate Description: Patient's goal is: INTERVENTIONS 1. Assess and monitor food intake and supplements, patient food preferences, nausea, vomiting, labs, oral cavity (gums, teeth, tongue, mucosa), proper denture fit, and cultural beliefs 2. Monitor for signs of hypoglycemia and hyperglycemia 3. Collaborate with interdisciplinary team and initiate plan and interventions as ordered 4. Monitor patient's weight 5. Assist patient with meals/food selection 6. Assist patient with eating 7. Allow adequate time for meals 8. Provide pleasant environment during mealtime 9. Increase social contact during mealtimes 10. Plan activities to conserve energy 11. Encourage/perform oral hygiene as appropriate 12. Encourage patient to take dietary supplement as ordered 13. Collaborate with clinical glass bulb machine adjuster 14. Include patient/ patient's agricultural sales representative in decisions related to nutrition Outcome: Progressing Note: Evaluation of progress towards goal: Patient understands the importance of proper nutrition to aid in healing. [facility] Plan of care note* Plan of Care - Rosa M Buckley RN - 04/09/2024 2:10 PM EDT Problem: Potential for Compromised Skin Integrity Goal: Skin integrity is maintained or improved Description: Patient's goal is: INTERVENTIONS 1. Perform initial skin assessment on admission and as needed 2. Turn patient every 2 hours and PRN 3. Relieve pressure to bony prominences 4. Avoid shearing 5. Keep skin clean and dry 6. Alternate a full bath with partial baths for elderly 7. Apply lotion/moisturizer on skin 8. Monitor patient's hygiene practices 9. Float heels 10. Collaborate with interdisciplinary team and initiate plans and interventions as needed Outcome: Progressing Note: Evaluation of progress towards goal: Maintain skin integrity and tissue integrity Goal: Patient's nutritional intake is adequate Description: Patient's goal is: INTERVENTIONS 1. Assess and monitor food intake and supplements, patient food preferences, nausea, vomiting, labs, oral cavity (gums, teeth, tongue, mucosa), proper denture fit, and cultural beliefs 2. Monitor for signs of hypoglycemia and hyperglycemia 3. Collaborate with interdisciplinary team and initiate plan and interventions as ordered 4. Monitor patient's weight 5. Assist patient with meals/food selection 6. Assist patient with eating 7. Allow adequate time for meals 8. Provide pleasant environment during mealtime 9. Increase social contact during mealtimes 10. Plan activities to conserve energy 11. Encourage/perform oral hygiene as appropriate 12. Encourage patient to take dietary supplement as ordered 13. Collaborate with clinical glass bulb machine adjuster 14. Include patient/ patient's agricultural sales representative in decisions related to nutrition Outcome: Progressing Note: Evaluation of progress towards goal: Patient understands the importance of proper nutrition to aid in healing. [facility] History and physical note* Emilia Hidalgo MD - 04/09/2024 1:55 PM EDT [facility] Medicine History and Physical Name: Vashti Massey Acct: [id number] Room: Admit Date: 04/09/2024 PCP: ELEAZAR MAYORGA DO Chief Complaint: Chief Complaint Patient presents with Stroke Alert History Obtained From: chart review and the patient. History of Present Illness: Vashti Massey is a 68 y.o. male who presents with Stroke Alert Patient was brought into ER by EMS stroke alert was called patient was last well known was 10:30 p.m. last night. Patient woke up around midnight due to dizziness. Patient called EMS for himself as he has been falling out hold last night due to unsteady gait. Patient reported that he was having left-sided weakness of upper and lower extremity. Patient stated that he did have stroke 3 months ago and he did haveweakness on that side left-sided facial weakness too. Patient said that he has been falling recently in last week or so and he feels like his weakness onthe left side has been getting worse patient was also complaining of right wrist pain from multiplefalls. Patient denies any headache or head injury. No chest pain or difficulty breathing no abdominal pain no nausea vomiting or diarrhea. Patient denies any difficulty talking or difficulty swallowing. Stroke alert was called in the ER, Per er note Upon presentation to the emergency department stroke alert was activated for reports of ataxia at home with history of previous stroke. Patient taken to CT scanner in stable condition. Physical exam does reveal appreciable weakness to the left side and left-sided facial droop. Looking back through the patient's chart from December 11 2023 this is reportedly chronic for the patient. NIHSS of 2 forleft arm drift and left-sided facial droop. I did personally review the patient's CT imaging and did not appreciate any acute bleed or obvious stroke. Radiology does comment on increased narrowing ofthe M1 and M2 segment on the right side. I did speak with the stroke team in regards to the patient's history, physical exam, lab work and imaging. They did not recommend any acute intervention at this time but did recommend admission and tele stroke workup. Tele stroke workup was conducted in the emergency department without any change to the current plan for the patient to be admitted to the hospital with Plavix and aspirin. Patient continues to remain well in the emergency department withoutany new focal neurological deficits. Patient's lab work was significant for creatinine of 1.49. Slightly low hemoglobin of 9.8. Denies any active bleeding. Patient does have DAISY with creatinine of 1.49. Patient was given IV fluids in the emergency department. Troponin was also elevated however multiple EKGs in the emergency department did not reveal any signs of STEMI. This is likely from DAISY andstroke. Low concern for ACS. X-ray imaging was reviewed of the patient's wrist, pelvis, ankle, knee. I did not appreciate any obvious fracture. Radiology does confirm this. Past Medical History: Past Medical History: Diagnosis Date Arthritis Cataract Diabetes [place] Diabetes mellitus type 2, controlled ([facility]) Fractures Past Surgical History: Past Surgical History: Procedure Laterality Date CATARACT EXTRACTION EYE SURGERY FRACTURE SURGERY JOINT REPLACEMENT TONSILLECTOMY Medications Prior to Admission: Prior to Admission medications Medication Sig Start Date End Date Taking? Authorizing Provider aspirin 81 mg Take 1 tablet (81 mg total) by mouth in the morning. 10/30/23 Yes ALYSON Clayton atorvastatin (LIPITOR) 40 mg tablet Take 1 tablet (40 mg total) by mouth nightly. 10/29/23 Yes ALYSON Kim insulin glargine (LANTUS, SEMGLEE) 100 unit/mL (3 mL) insulin pen Inject 15 Units under the skin inthe morning and 15 Units before bedtime. 10/29/23 Yes ALYSON Clayton insulin lispro (HumaLOG) 100 unit/mL insulin pen Inject 2-10 Units under the skin 4 (four) times a day with meals and nightly. 151-200, give 2 units. 201- 250, give 4 units. 251-300, give 6 units. 301-350, give 8 units. 351-400, give 10 units. 10/29/23 Yes ALYSON Clayton meloxicam (MOBIC) 15 mg tablet TAKE 1 TABLET(15 MG) BY MOUTH IN THE MORNING 03/17/24 Yes MARIBELL Bahena Allergies: Patient has no known allergies. Social History: Tobacco: reports that he has been smoking cigarettes. He has never used smokeless tobacco. Alcohol: reports that he does not currently use alcohol. Drug Use: reports that he does not currently use drugs. Family History: Family History Problem Relation Age of Onset Cancer Mother Brain cancer Father Review of Systems: All 10 systems reviewed and negative except as noted Review of Systems Constitutional: Negative for activity change, appetite change and fatigue. HENT: Negative for nosebleeds, trouble swallowing and voice change. Eyes: Negative for itching. Respiratory: Negative for shortness of breath and stridor. Cardiovascular: Negative for chest pain and palpitations. Gastrointestinal: Negative for abdominal distention and abdominal pain. Endocrine: Negative for polyuria. Genitourinary: Negative for difficulty urinating and dysuria. Musculoskeletal: Negative for gait problem. Skin: Negative for color change. Allergic/Immunologic: Negative for immunocompromised state. Neurological: Positive for dizziness and weakness. Negative for seizures and speech difficulty. Hematological: Negative for adenopathy. Code Status: Full Code Physical Exam: Vitals: BP 139/74 Pulse 106 Temp 36.6 C (97.9 F) (Temporal) Resp 25 Ht 177.8 cm (5' 10 ) Wt 110.7 kg (244 lb 0.8 oz) SpO2 97% BMI 35.02 kg/m Temp (24hrs), Av.6 C (97.9 F), Min:36.6 C (97.9 F), Max:36.6 C (97.9 F) Physical Exam Vitals reviewed. Constitutional: Appearance: He is well-developed. HENT: Head: Normocephalic and atraumatic. Right Ear: External ear normal. Left Ear: External ear normal. Nose: Nose normal. Mouth/Throat: Pharynx: Uvula midline. No oropharyngeal exudate. Eyes: General: Right eye: No discharge. Left eye: No discharge. Conjunctiva/sclera: Conjunctivae normal. Pupils: Pupils are equal, round, and reactive to light. Neck: Thyroid: No thyromegaly. Trachea: No tracheal deviation. Cardiovascular: Rate and Rhythm: Normal rate and regular rhythm. Heart sounds: Normal heart sounds. Pulmonary: Effort: Pulmonary effort is normal. No respiratory distress. Breath sounds: Normal breath sounds. No stridor. Chest: Chest wall: No tenderness. Abdominal: General: Bowel sounds are normal. There is no distension. Palpations: Abdomen is soft. Tenderness: There is no abdominal tenderness. There is no guarding or rebound. Musculoskeletal: General: No tenderness or deformity. Normal range of motion. Cervical back: Normal range of motion and neck supple. Lymphadenopathy: Cervical: No cervical adenopathy. Upper Body: Right upper body: No supraclavicular or epitrochlear adenopathy. Left upper body: No supraclavicular or epitrochlear adenopathy. Skin: General: Skin is warm and dry. Capillary Refill: Capillary refill takes less than 2 seconds. Coloration: Skin is not cyanotic. Nails: There is no clubbing. Neurological: Mental Status: He is alert. Motor: Weakness (Left upper and lower extremity weakness) present. No abnormal muscle tone or seizure activity. Coordination: Coordination normal. Gait: Gait abnormal. Psychiatric: Attention and Perception: Attention normal. Behavior: Behavior normal. Data: Recent Results (from the past 24 hour(s)) Troponin I, High Sensitivity Collection Time: 04/09/24 8:25 AM Result Value Ref Range Troponin I, High Sensitivity 38 (H) <21 ng/L Basic Metabolic Panel Collection Time: 04/09/24 8:25 AM Result Value Ref Range Sodium 131 (L) 134 - 146 mmol/L Potassium, Bld 4.7 3.5 - 5.0 mmol/L Chloride 102 98 - 109 mmol/L CO2 17 (L) 22 - 32 mmol/L Anion gap 12 5 - 15 mmol/L BUN 112 (H) 5 - 27 mg/dL Creatinine 1.49 (H) 0.70 - 1.20 mg/dL Glucose 328 (H) 65 - 99 mg/dL Calcium 8.4 (L) 8.5 - 10.5 mg/dL eGFR (CKD-EPI)non-race dependent 50 (L) >59 ml/min/1.73sq.m Protime & INR Collection Time: 04/09/24 8:25 AM Result Value Ref Range Protime 14.0 (H) 9.8 - 13.2 sec Inr 1.2 (H) 0.8 - 1.1 APTT Collection Time: 04/09/24 8:25 AM Result Value Ref Range aPTT 24 (L) 26 - 37 sec CBC auto differential Collection Time: 04/09/24 8:25 AM Result Value Ref Range White Blood Cells 9.7 4.0 - 11.0 X10E9/L RBC count 3.16 (L) 4.10 - 5.70 X10E12/L Hemoglobin 9.8 (L) 13.0 - 17.0 g/dL Hematocrit 28.3 (L) 39 - 49 % MCV 89 80 - 100 fL MCH 30.9 27 - 34 pg MCHC 34.6 32 - 36 g/dL RDW 13.9 11.5 - 15.0 % Platelets 330 150 - 450 X10E9/L MPV 8.1 7 - 12 fL % neutrophils 87.3 % % lymphocytes 9.0 % % monocytes 3.2 % % eosinophils 0.1 % % Basophils 0.4 % Neutrophils Absolute (A) 8.5 (H) 1.5 - 6.6 X10E9/L Lymphocytes Absolute 0.9 (L) 1.0 - 3.5 X10E9/L Monocytes Absolute 0.3 0 - 0.9 X10E9/L Eosinophils Absolute 0.0 0.0 - 0.4 X10E9/L Basophils Absolute 0.0 0.0 - 0.2 X10E9/L Troponin I, High Sensitivity 1 Hour Collection Time: 04/09/24 9:45 AM Result Value Ref Range 1 Hour Trop I, High Sensitivity 60 (H) <21 ng/L Troponin I, High Sensitivity 3 Hour Collection Time: 04/09/24 11:40 AM Result Value Ref Range 3 Hour Trop I, High Sensitivity 113 (H) <21 ng/L Bedside Glucose *Place/Obtain serum glucose if >500(>600 MRH) per glucometer. Collection Time: 04/09/24 1:04 PM Result Value Ref Range Bedside glucose 258 (H) 65 - 99 mg/dL All plain film images(s) ,CT, Ultrasound and MRI have been read by the radiologist. Imaging--Reviewed: MR brain without contrast Result Date: 04/09/2024 Narrative: STUDY: MR BRAIN WO CONT INDICATION: Stroke [...] than peripheral volume loss. Bilateral hippocampal atrophy, [id number] in severity. Few scattered foci of T2/FLAIR hyperintensity in the deep white matter is nonspecific for age and not disproportionate, though may reflect very mild chronic microvascular ischemic changes. Tiny focus of T2/FLAIR hyperintensity in the right cerebral peduncle which may reflect early wallerian degeneration. Globes and orbits are unremarkable accounting for bilateral lens replacement. Paranasal sinuses and mastoid air cells are clear. P rominent CSF of the bilateral Meckel's caves without secondary signs of idiopathic intracranial hypertension. IMPRESSION: * Scattered foci of late acute/early subacute and more subacute foci of rightMCA territory infarcts as described. No significant hemorrhagic transformation. Early right-sided wa llerian degeneration is suspected. * Mild prominence of [...] by Emmanuel Pastrana on 04/09/2024 9:55 AM X-ray wrist right minimum 3 views Result Date: 04/09/2024 Narrative: History: Bruising. Recent fall Exam/Technique: PA, oblique, and lateral views of the right wrist. Comparison: None Findings: There is no evidence of recent fracture or dislocation. Old posttraumatic and postsurgical changes in the scaphoid with anchor present within the bone. Prominent de generative change at the distal radial ulnar joint, radiocarpal joints, and first carpometacarpal joint IMPRESSION: No acute bony abnormalities demonstrated Finalized by Kenneth Rothman MD on 04/09/2024 9:40 AM X-ray pelvis 1 or 2 views Result Date: 04/09/2024 Narrative: History: Fall with left-sided pain Exam/Technique: Single AP projection of the pelvis. Comparison: None Findings: No fractures or other focal bony lesions are displayed in pelvic bones. Onthis single projection the hip joints appear intact and normally aligned. Contrast fills the urinary bladder from the preceding CTAs. This largely obscures the sacrum. IMPRESSION: Negative for recentfracture. Finalized by Kenneth Rothman MD on 04/09/2024 9:37 AM X-ray ankle left minimum 3 views Result Date: 04/09/2024 Narrative: History: Fall with left ankle bruising Exam/Technique: AP, oblique, and lateral views ofthe left ankle Comparison: None Findings: Prominent spurring at the anterior margin of the distal tibia There is no evidence of fractures of any age and no other focal bony abnormalities. The ankle mortise is intact and normally aligned probable mild soft tissue swelling laterally IMPRESSION: No acu te bony abnormalities demonstrated. Finalized by Kenneth Rothman MD on 04/09/2024 9:32 AM X-ray knee left 3 views Result Date: 04/09/2024 Narrative: Left Knee: 04/09/2024 9:08 AM. Reason for study: Fall, bruising to left knee. Comparison studies: Knee radiograph from 06/04/2010. Technique: AP, oblique, and lateral views of left knee were obtained. Findings: Knee arthroplasty is again noted which appears appropriately aligned. Associatedleft knee degenerative change again seen. Moderate atheromatous calcifications. Limited evaluation for small knee joint effusion due to the degree of flexion on the lateral. No acute fracture or dislocation. Infrapatellar soft tissue thickening. Impression: No acute fracture or dislocation with similar alignment of the knee arthroplasty. Finalized by Angela Keyes MD on 04/09/2024 9:[address] angiogram head Result Date: 04/09/2024 Narrative: CLINICAL INFORMATION: stroke symptoms unsteady gait and left-sided weakness TECHNIQUE: CT angiogram of the head was performed following intravenous administration of nonionic intravenous contrast. 3-D maximum intensity projection images generated and reviewed under concurrent physician supervision. Automated exposure control was utilized. Arterial blood flow was measured to assist the stroke clinical team in the diagnosis of large vessel occlusion in patients undergoing screening foracute ischemic stroke using Rapid AI software when clinically indicated. All CT scans at this facility use dose modulation, iterative reconstruction, and/or weight based dosing when appropriate to reduce radiation dose to as low as reasonably achievable. COMPARISON: CT head 10/28/2023 FINDINGS: Abnormal exam with interval development of long segment narrowing with near complete occlusion at the midM1 segment and anterior division of the M2 segment of the right middle cerebral artery. Otherwise the intracranial segments of the right internal carotid artery is widely patent with mild intimal calc ification at the cavernous segments of no hemodynamic [...] Bonnie Thomson MD on 04/09/2024 8:[address] angiogram carotid Result Date: 04/09/2024 Narrative: History: Weakness in left side of face and left upper and lower limbs Acute neurologicaldisorder. Acute stroke/TIA Exam/Technique: Bolus arterial phase IV contrast. 3-D and multiplanar reconstructions are provided for CTA of the neck. Volume rendered 3 -D Maximum intensity projection reconstructions constructed under concurrent physician supervision on an independent workstation and reviewed for purposes of evaluation of the cervical arterial vasculature. Carotid artery narrowing isassessed using the [place] Symptomatic Carotid Endarterectomy Trial (NASCET) method. Comparison: Findings: Conventional anatomy is demonstrated for the origins of the great vessels from the arch. Mild to moderate calcific plaquing in the aortic arch. No stenoses or other significant abnormalities of the proximal great vessels are displayed. Calcific plaquing of left carotid bifurcation andminimal minimally on the right. There is no evidence of common or internal carotid artery stenosis at any level, on either side. Vertebral arteries are intact throughout the neck bilaterally, withoutany evidence of focal stenoses. No evidence of [...] Kenneth Rothman MD on 04/09/2024 8:[address] brain without contrast stroke alert Result Date: 04/09/2024 Narrative: CT HEAD WITHOUT IV CONTRAST CLINICAL STATEMENT: [...] unremarkable. No features of raised intracranial pressure.No intracranialbleed. The IACs are unremarkable. The cerebellopontine angles are unremarkable. The temporomandibular joints show no abnormality. The osseous structures in the skull base and in the calvarium show nodefinite abnormality. The orbits are normal. The paranasal sinuses are clear. The mastoid air cellsare clear. IMPRESSION: No acute ischemia or infarction. 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 All CT scans at this facility use dose modulation, iterative reconstruction, and/or weight based dosing when appropriate to reduce radiation dose to as low as reasonably achievable. Finalized by Ramy Clay MD on 04/09/2024 8:10 AM Assesment: Primary Problem Stroke-like symptoms Principal Problem: Stroke-like symptoms Active Problems: Type 2 diabetes mellitus with hyperglycemia, with long-term current use of insulin ([facility]) Mixed hyperlipidemia Gait instability Acute renal failure with acute renal cortical necrosis superimposed on stage 3a chronic kidney disease ([facility]) Plan: MRI brain noted Plavix given Tele stroke consult Aspirin and Lipitor for stroke IV fluids Neuro checks Speech therapy evaluation DVT prophylaxis Lovenox Insulin sliding scale for diabetes EPCs PPI PT/OT to evaluate and treat Pain Control Restart home medications Labs and imaging reviewed from last 24 hours and results explained to patient Electronically signed by Emilia Hidalgo MD Copy sent to Dr. ELEAZAR MAYORGA DO This note is created with the assistance of a speech recognition program. While intending to generate a document that actually reflects the content of the visit, the document can still have some errors including those of syntax and sound a like substitutions which may escape proof reading. It such instances, actual meaning can be extrapolated by contextual diversion. [facility]06-14-2024 History and physical note* Emilia Hidalgo MD - 04/09/2024 1:55 PM EDT [facility] Medicine History and Physical Name: Vashti Massey Acct: [id number] Room: Admit Date: 04/09/2024 PCP: ELEAZAR MAYORGA DO Chief Complaint: Chief Complaint Patient presents with Stroke Alert History Obtained From: chart review and the patient. History of Present Illness: Vashti Massey is a 68 y.o. male who presents with Stroke Alert Patient was brought into ER by EMS stroke alert was called patient was last well known was 10:30 p.m. last night. Patient woke up around midnight due to dizziness. Patient called EMS for himself as he has been falling out hold last night due to unsteady gait. Patient reported that he was having left-sided weakness of upper and lower extremity. Patient stated that he did have stroke 3 months ago and he did haveweakness on that side left-sided facial weakness too. Patient said that he has been falling recently in last week or so and he feels like his weakness onthe left side has been getting worse patient was also complaining of right wrist pain from multiplefalls. Patient denies any headache or head injury. No chest pain or difficulty breathing no abdominal pain no nausea vomiting or diarrhea. Patient denies any difficulty talking or difficulty swallowing. Stroke alert was called in the ER, Per er note Upon presentation to the emergency department stroke alert was activated for reports of ataxia at home with history of previous stroke. Patient taken to CT scanner in stable condition. Physical exam does reveal appreciable weakness to the left side and left-sided facial droop. Looking back through the patient's chart from December 11 2023 this is reportedly chronic for the patient. NIHSS of 2 forleft arm drift and left-sided facial droop. I did personally review the patient's CT imaging and did not appreciate any acute bleed or obvious stroke. Radiology does comment on increased narrowing ofthe M1 and M2 segment on the right side. I did speak with the stroke team in regards to the patient's history, physical exam, lab work and imaging. They did not recommend any acute intervention at this time but did recommend admission and tele stroke workup. Tele stroke workup was conducted in the emergency department without any change to the current plan for the patient to be admitted to the hospital with Plavix and aspirin. Patient continues to remain well in the emergency department withoutany new focal neurological deficits. Patient's lab work was significant for creatinine of 1.49. Slightly low hemoglobin of 9.8. Denies any active bleeding. Patient does have DAISY with creatinine of 1.49. Patient was given IV fluids in the emergency department. Troponin was also elevated however multiple EKGs in the emergency department did not reveal any signs of STEMI. This is likely from DAISY andstroke. Low concern for ACS. X-ray imaging was reviewed of the patient's wrist, pelvis, ankle, knee. I did not appreciate any obvious fracture. Radiology does confirm this. Past Medical History: Past Medical History: Diagnosis Date Arthritis Cataract Diabetes ([facility]) Diabetes mellitus type 2, controlled ([facility]) Fractures Past Surgical History: Past Surgical History: Procedure Laterality Date CATARACT EXTRACTION EYE SURGERY FRACTURE SURGERY JOINT REPLACEMENT TONSILLECTOMY Medications Prior to Admission: Prior to Admission medications Medication Sig Start Date End Date Taking? Authorizing Provider aspirin 81 mg Take 1 tablet (81 mg total) by mouth in the morning. 10/30/23 Yes Kar D Krotzer, CLIENT SUPPORT ADMINISTRATOR-HIDE HANDLER atorvastatin (LIPITOR) 40 mg tablet Take 1 tablet (40 mg total) by mouth nightly. 10/29/23 Yes ALYSON Kim insulin glargine (LANTUS, SEMGLEE) 100 unit/mL (3 mL) insulin pen Inject 15 Units under the skin inthe morning and 15 Units before bedtime. 10/29/23 Yes ALYSON Clayton insulin lispro (HumaLOG) 100 unit/mL insulin pen Inject 2-10 Units under the skin 4 (four) times a day with meals and nightly. 151-200, give 2 units. 201- 250, give 4 units. 251-300, give 6 units. 301-350, give 8 units. 351-400, give 10 units. 10/29/23 Yes ALYSON Clayton meloxicam (MOBIC) 15 mg tablet TAKE 1 TABLET(15 MG) BY MOUTH IN THE MORNING 03/17/24 Yes MARIBELL Bahena Allergies: Patient has no known allergies. Social History: Tobacco: reports that he has been smoking cigarettes. He has never used smokeless tobacco. Alcohol: reports that he does not currently use alcohol. Drug Use: reports that he does not currently use drugs. Family History: Family History Problem Relation Age of Onset Cancer Mother Brain cancer Father Review of Systems: All 10 systems reviewed and negative except as noted Review of Systems Constitutional: Negative for activity change, appetite change and fatigue. HENT: Negative for nosebleeds, trouble swallowing and voice change. Eyes: Negative for itching. Respiratory: Negative for shortness of breath and stridor. Cardiovascular: Negative for chest pain and palpitations. Gastrointestinal: Negative for abdominal distention and abdominal pain. Endocrine: Negative for polyuria. Genitourinary: Negative for difficulty urinating and dysuria. Musculoskeletal: Negative for gait problem. Skin: Negative for color change. Allergic/Immunologic: Negative for immunocompromised state. Neurological: Positive for dizziness and weakness. Negative for seizures and speech difficulty. Hematological: Negative for adenopathy. Code Status: Full Code Physical Exam: Vitals: BP 139/74 Pulse 106 Temp 36.6 C (97.9 F) (Temporal) Resp 25 Ht 177.8 cm (5' 10 ) Wt 110.7 kg (244 lb 0.8 oz) SpO2 97% BMI 35.02 kg/m Temp (24hrs), Av.6 C (97.9 F), Min:36.6 C (97.9 F), Max:36.6 C (97.9 F) Physical Exam Vitals reviewed. Constitutional: Appearance: He is well-developed. HENT: Head: Normocephalic and atraumatic. Right Ear: External ear normal. Left Ear: External ear normal. Nose: Nose normal. Mouth/Throat: Pharynx: Uvula midline. No oropharyngeal exudate. Eyes: General: Right eye: No discharge. Left eye: No discharge. Conjunctiva/sclera: Conjunctivae normal. Pupils: Pupils are equal, round, and reactive to light. Neck: Thyroid: No thyromegaly. Trachea: No tracheal deviation. Cardiovascular: Rate and Rhythm: Normal rate and regular rhythm. Heart sounds: Normal heart sounds. Pulmonary: Effort: Pulmonary effort is normal. No respiratory distress. Breath sounds: Normal breath sounds. No stridor. Chest: Chest wall: No tenderness. Abdominal: General: Bowel sounds are normal. There is no distension. Palpations: Abdomen is soft. Tenderness: There is no abdominal tenderness. There is no guarding or rebound. Musculoskeletal: General: No tenderness or deformity. Normal range of motion. Cervical back: Normal range of motion and neck supple. Lymphadenopathy: Cervical: No cervical adenopathy. Upper Body: Right upper body: No supraclavicular or epitrochlear adenopathy. Left upper body: No supraclavicular or epitrochlear adenopathy. Skin: General: Skin is warm and dry. Capillary Refill: Capillary refill takes less than 2 seconds. Coloration: Skin is not cyanotic. Nails: There is no clubbing. Neurological: Mental Status: He is alert. Motor: Weakness (Left upper and lower extremity weakness) present. No abnormal muscle tone or seizure activity. Coordination: Coordination normal. Gait: Gait abnormal. Psychiatric: Attention and Perception: Attention normal. Behavior: Behavior normal. Data: Recent Results (from the past 24 hour(s)) Troponin I, High Sensitivity Collection Time: 04/09/24 8:25 AM Result Value Ref Range Troponin I, High Sensitivity 38 (H) <21 ng/L Basic Metabolic Panel Collection Time: 04/09/24 8:25 AM Result Value Ref Range Sodium 131 (L) 134 - 146 mmol/L Potassium, Bld 4.7 3.5 - 5.0 mmol/L Chloride 102 98 - 109 mmol/L CO2 17 (L) 22 - 32 mmol/L Anion gap 12 5 - 15 mmol/L BUN 112 (H) 5 - 27 mg/dL Creatinine 1.49 (H) 0.70 - 1.20 mg/dL Glucose 328 (H) 65 - 99 mg/dL Calcium 8.4 (L) 8.5 - 10.5 mg/dL eGFR (CKD-EPI)non-race dependent 50 (L) >59 ml/min/1.73sq.m Protime & INR Collection Time: 04/09/24 8:25 AM Result Value Ref Range Protime 14.0 (H) 9.8 - 13.2 sec Inr 1.2 (H) 0.8 - 1.1 APTT Collection Time: 04/09/24 8:25 AM Result Value Ref Range aPTT 24 (L) 26 - 37 sec CBC auto differential Collection Time: 04/09/24 8:25 AM Result Value Ref Range White Blood Cells 9.7 4.0 - 11.0 X10E9/L RBC count 3.16 (L) 4.10 - 5.70 X10E12/L Hemoglobin 9.8 (L) 13.0 - 17.0 g/dL Hematocrit 28.3 (L) 39 - 49 % MCV 89 80 - 100 fL MCH 30.9 27 - 34 pg MCHC 34.6 32 - 36 g/dL RDW 13.9 11.5 - 15.0 % Platelets 330 150 - 450 X10E9/L MPV 8.1 7 - 12 fL % neutrophils 87.3 % % lymphocytes 9.0 % % monocytes 3.2 % % eosinophils 0.1 % % Basophils 0.4 % Neutrophils Absolute (A) 8.5 (H) 1.5 - 6.6 X10E9/L Lymphocytes Absolute 0.9 (L) 1.0 - 3.5 X10E9/L Monocytes Absolute 0.3 0 - 0.9 X10E9/L Eosinophils Absolute 0.0 0.0 - 0.4 X10E9/L Basophils Absolute 0.0 0.0 - 0.2 X10E9/L Troponin I, High Sensitivity 1 Hour Collection Time: 04/09/24 9:45 AM Result Value Ref Range 1 Hour Trop I, High Sensitivity 60 (H) <21 ng/L Troponin I, High Sensitivity 3 Hour Collection Time: 04/09/24 11:40 AM Result Value Ref Range 3 Hour Trop I, High Sensitivity 113 (H) <21 ng/L Bedside Glucose *Place/Obtain serum glucose if >500(>600 MRH) per glucometer. Collection Time: 04/09/24 1:04 PM Result Value Ref Range Bedside glucose 258 (H) 65 - 99 mg/dL All plain film images(s) ,CT, Ultrasound and MRI have been read by the radiologist. Imaging--Reviewed: MR brain without contrast Result Date: 04/09/2024 Narrative: STUDY: MR BRAIN WO CONT INDICATION: Stroke [...] than peripheral volume loss. Bilateral hippocampal atrophy, [id number] in severity. Few scattered foci of T2/FLAIR hyperintensity in the deep white matter is nonspecific for age and not disproportionate, though may reflect very mild chronic microvascular ischemic changes. Tiny focus of T2/FLAIR hyperintensity in the right cerebral peduncle which may reflect early wallerian degeneration. Globes and orbits are unremarkable accounting for bilateral lens replacement. Paranasal sinuses and mastoid air cells are clear. P rominent CSF of the bilateral Meckel's caves without secondary signs of idiopathic intracranial hypertension. IMPRESSION: * Scattered foci of late acute/early subacute and more subacute foci of rightMCA territory infarcts as described. No significant hemorrhagic transformation. Early right-sided wa llerian degeneration is suspected. * Mild prominence of [...] by Emmanuel Pastrana on 04/09/2024 9:55 AM X-ray wrist right minimum 3 views Result Date: 04/09/2024 Narrative: History: Bruising. Recent fall Exam/Technique: PA, oblique, and lateral views of the right wrist. Comparison: None Findings: There is no evidence of recent fracture or dislocation. Old posttraumatic and postsurgical changes in the scaphoid with anchor present within the bone. Prominent de generative change at the distal radial ulnar joint, radiocarpal joints, and first carpometacarpal joint IMPRESSION: No acute bony abnormalities demonstrated Finalized by Kenneth Rothman MD on 04/09/2024 9:40 AM X-ray pelvis 1 or 2 views Result Date: 04/09/2024 Narrative: History: Fall with left-sided pain Exam/Technique: Single AP projection of the pelvis. Comparison: None Findings: No fractures or other focal bony lesions are displayed in pelvic bones. Onthis single projection the hip joints appear intact and normally aligned. Contrast fills the urinary bladder from the preceding CTAs. This largely obscures the sacrum. IMPRESSION: Negative for recentfracture. Finalized by Kenneth Rothman MD on 04/09/2024 9:37 AM X-ray ankle left minimum 3 views Result Date: 04/09/2024 Narrative: History: Fall with left ankle bruising Exam/Technique: AP, oblique, and lateral views ofthe left ankle Comparison: None Findings: Prominent spurring at the anterior margin of the distal tibia There is no evidence of fractures of any age and no other focal bony abnormalities. The ankle mortise is intact and normally aligned probable mild soft tissue swelling laterally IMPRESSION: No acu te bony abnormalities demonstrated. Finalized by Kenneth Rothman MD on 04/09/2024 9:32 AM X-ray knee left 3 views Result Date: 04/09/2024 Narrative: Left Knee: 04/09/2024 9:08 AM. Reason for study: Fall, bruising to left knee. Comparison studies: Knee radiograph from 06/04/2010. Technique: AP, oblique, and lateral views of left knee were obtained. Findings: Knee arthroplasty is again noted which appears appropriately aligned. Associatedleft knee degenerative change again seen. Moderate atheromatous calcifications. Limited evaluation for small knee joint effusion due to the degree of flexion on the lateral. No acute fracture or dislocation. Infrapatellar soft tissue thickening. Impression: No acute fracture or dislocation with similar alignment of the knee arthroplasty. Finalized by Angela Keyes MD on 04/09/2024 9:[address] angiogram head Result Date: 04/09/2024 Narrative: CLINICAL INFORMATION: stroke symptoms unsteady gait and left-sided weakness TECHNIQUE: CT angiogram of the head was performed following intravenous administration of nonionic intravenous contrast. 3-D maximum intensity projection images generated and reviewed under concurrent physician supervision. Automated exposure control was utilized. Arterial blood flow was measured to assist the stroke clinical team in the diagnosis of large vessel occlusion in patients undergoing screening foracute ischemic stroke using Rapid AI software when clinically indicated. All CT scans at this facility use dose modulation, iterative reconstruction, and/or weight based dosing when appropriate to reduce radiation dose to as low as reasonably achievable. COMPARISON: CT head 10/28/2023 FINDINGS: Abnormal exam with interval development of long segment narrowing with near complete occlusion at the midM1 segment and anterior division of the M2 segment of the right middle cerebral artery. Otherwise the intracranial segments of the right internal carotid artery is widely patent with mild intimal calc ification at the cavernous segments of no hemodynamic [...] Bonnie Thomson MD on 04/09/2024 8:[address] angiogram carotid Result Date: 04/09/2024 Narrative: History: Weakness in left side of face and left upper and lower limbs Acute neurologicaldisorder. Acute stroke/TIA Exam/Technique: Bolus arterial phase IV contrast. 3-D and multiplanar reconstructions are provided for CTA of the neck. Volume rendered 3 -D Maximum intensity projection reconstructions constructed under concurrent physician supervision on an independent workstation and reviewed for purposes of evaluation of the cervical arterial vasculature. Carotid artery narrowing isassessed using the [place] Symptomatic Carotid Endarterectomy Trial (NASCET) method. Comparison: Findings: Conventional anatomy is demonstrated for the origins of the great vessels from the arch. Mild to moderate calcific plaquing in the aortic arch. No stenoses or other significant abnormalities of the proximal great vessels are displayed. Calcific plaquing of left carotid bifurcation andminimal minimally on the right. There is no evidence of common or internal carotid artery stenosis at any level, on either side. Vertebral arteries are intact throughout the neck bilaterally, withoutany evidence of focal stenoses. No evidence of [...] Kenneth Rothman MD on 04/09/2024 8:[address] brain without contrast stroke alert Result Date: 04/09/2024 Narrative: CT HEAD WITHOUT IV CONTRAST CLINICAL STATEMENT: [...] unremarkable. No features of raised intracranial pressure.No intracranialbleed. The IACs are unremarkable. The cerebellopontine angles are unremarkable. The temporomandibular joints show no abnormality. The osseous structures in the skull base and in the calvarium show nodefinite abnormality. The orbits are normal. The paranasal sinuses are clear. The mastoid air cellsare clear. IMPRESSION: No acute ischemia or infarction. 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 All CT scans at this facility use dose modulation, iterative reconstruction, and/or weight based dosing when appropriate to reduce radiation dose to as low as reasonably achievable. Finalized by Ramy Clay MD on 04/09/2024 8:10 AM Assesment: Primary Problem Stroke-like symptoms Principal Problem: Stroke-like symptoms Active Problems: Type 2 diabetes mellitus with hyperglycemia, with long-term current use of insulin ([facility]) Mixed hyperlipidemia Gait instability Acute renal failure with acute renal cortical necrosis superimposed on stage 3a chronic kidney disease ([facility]) Plan: MRI brain noted Plavix given Tele stroke consult Aspirin and Lipitor for stroke IV fluids Neuro checks Speech therapy evaluation DVT prophylaxis Lovenox Insulin sliding scale for diabetes EPCs PPI PT/OT to evaluate and treat Pain Control Restart home medications Labs and imaging reviewed from last 24 hours and results explained to patient Electronically signed by Emilia Hidalgo MD Copy sent to Dr. ELEAZAR MAYORGA, DO This note is created with the assistance of a speech recognition program. While intending to generate a document that actually reflects the content of the visit, the document can still have some errors including those of syntax and sound a like substitutions which may escape proof reading. It such instances, actual meaning can be extrapolated by contextual diversion. [facility]* Nicolette Estrada CNA - 04/09/2024 11:55 AM EDT Admit Aldo Rodarte, ready to go [facility] Emergency department Note* Nicolette Jackson CNA - 04/09/2024 11:55 AM EDT Admit 206Aldo Boo, ready to go * Loren Middleton RN - 04/09/2024 9:29 AM EDT Patient presents via EMS as a stroke alert. LKW 10:30 last night. Patient states he had frequent falls yesterday and was not feeling right. * Loren Middleton RN - 04/09/2024 8:30 AM EDT Patient presents via EMS as a stroke alert. LKW 10:30 last night. Patient states he had frequent falls yesterday and was not feeling right. * Yudelka Mcmullen DO - 04/09/2024 8:00 AM EDTAssociated Order(s): ED NIHSS MD Screening DISPOSITION Observation CLINICAL IMPRESSION 1. Stroke-like symptoms 2. DAISY (acute kidney injury) (CMS-HCC) 3. Anemia, unspecified type 4. Elevated troponin ED COURSE / MEDICAL DECISION MAKING / TREATMENT PLAN: Chart was reviewed. Patient was seen and examined by myself in the emergency department for stroke symptoms. Upon presentation to the emergency department stroke alert was activated for reports of ataxia at home with history of previous stroke. Patient taken to CT scanner in stable condition. Physical exam does reveal appreciable weakness to the left side and left-sided facial droop. Looking back through the patient's chart from December 11 2023 this is reportedly chronic for the patient. NIHSS of 2 forleft arm drift and left-sided facial droop. I did personally review the patient's CT imaging and did not appreciate any acute bleed or obvious stroke. Radiology does comment on increased narrowing ofthe M1 and M2 segment on the right side. I did speak with the stroke team in regards to the patient's history, physical exam, lab work and imaging. They did not recommend any acute intervention at this time but did recommend admission and tele stroke workup. Tele stroke workup was conducted in the emergency department without any change to the current plan for the patient to be admitted to the hospital with Plavix and aspirin. Patient continues to remain well in the emergency department withoutany new focal neurological deficits. Patient's lab work was significant for creatinine of 1.49. Slightly low hemoglobin of 9.8. Denies any active bleeding. Patient does have DAISY with creatinine of 1.49. Patient was given IV fluids in the emergency department. Troponin was also elevated however multiple EKGs in the emergency department did not reveal any signs of STEMI. This is likely from DAISY andstroke. Low concern for ACS. X-ray imaging was reviewed of the patient's wrist, pelvis, ankle, knee. I did not appreciate any obvious fracture. Radiology does confirm this. I did discuss the patient's history, physical exam, lab work and imaging with Internal Medicine who does agree to admit the patient for further evaluation and management. Patient continues to remain stable in the emergency department and was admitted to internal medicine. See below for complete physical exam, lab/diagnostic tests ordered with results, vital signs, and medications given. The results were discussed with the patient/child care aide and they expressed verbal understanding. Patient/child care aide understands and agrees with plan. Patient appears stable on final evaluation andwill be admitted at this time. ED Course as of 04/09/24 1223 FriApr 09, 2024 08 I did speak with Dr. Ramirez of stroke team. He recommends no current intervention at this time and to call back when imaging is back. Patient otherwise seems to be at his baseline other than reported gait instability however does not have significant ataxia on exam. NIHSS of 2 for left-sided facial droop and left arm drift. These are noted to be chronic for the patient. [RW] 0907 I did speak again with the stroke team who does recommend admission to hospital for potential transfer to [place]. He does recommend permissive hypertension up to 220 systolic. He does recommend Plavix 300, aspirin 81 and MRI, patient continues to remain stable in the emergency department no new focal neurological deficits. [RW] 1007 Notified of and reviewed MRI results. I did reach out again to the Stroke Team who recommends to conduct the tele stroke visit at this time and to decide where to go from there. Patient continues to have no change to his neurological status in the emergency department. Nursing notified and tele stroke camera placed in the room. [RW] 1009 Creatinine(!): 1.49 Given more iv fluids for daisy, awaiting urine [RW] 1132 1 Hour Trop I, High Sensitivity(!): 60 Likely related to DAISY and stroke, will order a 3 hour troponin. EKG without STEMI [RW] ED Course User Index [RW] Yudelka Mcmullen DO Clinical Impressions as of 04/09/24 1223 Stroke-like symptoms DAISY (acute kidney injury) ([facility]) Anemia, unspecified type Elevated troponin HPI Initial evaluation preformed by Dr. Mcmullen at 8:15 AM Vashti Massey 68 y.o. male presents to ED via EMS with c/o Stroke Alert. Last well known: 04/08/2024, 10:30 PM. Pt states that he went to bed asymptomatic at 10:30 PM last night and woke up around midnight due to dizziness. Pt called EMS for himself as he has been falling out whole last night due to unsteady. Pt reports weakness in L side of body including LLE, LUE, and L side of face from last stroke. Pt noted only new complain for today's visit is unsteadiness and R wrist pain frommultiple fall. Pt has no recent illness or feeling like sick. Pt noted hs usually have vomit with IV contrast, noted had one today as well. Pt denies neck pain, fever, chest pain, SOB, and abdominal p ain. Pt has no known medications allergy. HPI REVIEW OF SYSTEMS See HPI PHYSICAL EXAM Physical Exam Vitals and nursing note reviewed. Constitutional: Appearance: Normal appearance. He is not toxic-appearing. HENT: Head: Normocephalic and atraumatic. Right Ear: External ear normal. Left Ear: External ear normal. Nose: Nose normal. No rhinorrhea. Mouth/Throat: Lips: [place]. Mouth: Mucous membranes are moist. Eyes: General: No scleral icterus. Extraocular Movements: Extraocular movements intact. Conjunctiva/sclera: Conjunctivae normal. Pupils: Pupils are equal, round, and reactive to light. Neck: Trachea: No tracheal deviation. Cardiovascular: Rate and Rhythm: Normal rate and regular rhythm. Pulses: Normal pulses. Heart sounds: Normal heart sounds. No murmur heard. No gallop. Pulmonary: Effort: Pulmonary effort is normal. No accessory muscle usage or respiratory distress. Breath sounds: Normal breath sounds. No wheezing. Abdominal: General: Abdomen is flat. There is no distension. Palpations: Abdomen is soft. Tenderness: There is no abdominal tenderness. Musculoskeletal: General: No deformity. Normal range of motion. Cervical back: Normal range of motion and neck supple. Right lower leg: No edema. Left lower leg: No edema. Skin: General: Skin is warm and dry. Capillary Refill: Capillary refill takes less than 2 seconds. Findings: Bruising (to L ankle and R wrist noted) present. No rash. Neurological: General: No focal deficit present. Mental Status: He is alert and oriented to person, place, and time. Comments: Chronic weakness in L arm and L leg weakness. Chronic L facial droop. NIHSS 2. Alert and oriented, answering questions appropriately. No obvious ataxia or visual field deficit. Psychiatric: Mood and Affect: Mood normal. Behavior: Behavior normal. Vitals: 04/09/24 1105 04/09/24 1110 04/09/24 1200 04/09/24 1222 BP: 120/76 121/53 122/78 117/60 Pulse: 98 94 97 106 Resp: 22 16 20 19 Temp: TempSrc: SpO2: 95% 94% 97% 100% Weight: Height: DIAGNOSTIC TESTING MR brain without contrast Final Result X-ray pelvis 1 or 2 views Final Result X-ray knee left 3 views Final Result X-ray ankle left minimum 3 views Final Result X-ray wrist right minimum [address] angiogram carotid Final Result CT angiogram head Final Result CT brain without contrast stroke alert Final Result Labs Reviewed TROPONIN I, HIGH SENSITIVITY - Abnormal; Notable for the following components: Result Value Troponin I, High Sensitivity 38 (*) All other components within normal limits TROP I, HIGH SENSITIVITY 1 HOUR - Abnormal; Notable for the following components: 1 Hour Trop I, High Sensitivity 60 (*) All other components within normal limits BASIC METABOLIC PANEL - Abnormal; Notable for the following components: Sodium 131 (*) CO2 17 (*) BUN 112 (*) Creatinine 1.49 (*) Glucose 328 (*) Calcium 8.4 (*) eGFR (CKD-EPI)non-race dependent 50 (*) All other components within normal limits PROTIME & INR - Abnormal; Notable for the following components: Protime 14.0 (*) Inr 1.2 (*) All other components within normal limits APTT - Abnormal; Notable for the following components: aPTT 24 (*) All other components within normal limits CBC WITH AUTO DIFFERENTIAL - Abnormal; Notable for the following components: RBC count 3.16 (*) Hemoglobin 9.8 (*) Hematocrit 28.3 (*) Neutrophils Absolute (A) 8.5 (*) Lymphocytes Absolute 0.9 (*) All other components within normal limits URINALYSIS TROP I, HIGH SENSITIVITY 3 HOUR BEDSIDE GLUCOSE ED NIHSS MD Screening Performed by: Yudelka Mcmullen DO Authorized by: Yudelka Mcmullen DO Time NIHSS was performed: 04/09/2024 8:16 AM Interval: Baseline LOC: 0 - Alert LOC Questions: 0 - Answers both correctly LOC Commands: 0 - Performs both tasks correctly Best Gaze: 0 - Normal horizontal movements Visual [place]: 0 - No visual field defect Facial Movements: 1 - Minor facial weakness Motor Function Right Arm: 0 - No drift right arm holds for 10 seconds Motor Function Left Arm: 1 - Left arm falls before 10 seconds, does not touch bed Motor Function Right Le - No drift right leg holds for full 5 seconds Motor Function Left Le - No drift left leg, holds for full 5 seconds Limb Ataxia: 0 - No limb ataxia Sensory: 0 - No sensory loss Language: 0 - Language normal Articulation: 0 - Articulation normal Extinction or Inattention: 0 - Extinction or inattention absent TOTAL SCORE: 2 ONSET OF SYMPTOMS: Date: 04/08/2024 Time: 22:30 EDT NIHSS stroke scale completed Onset: Onset greater than 4.5 hours - Patient not eligible for TPA Stroke team initiated FINAL EVALUATION FOR THROMBOLYTIC: Do presenting disabilities interfere with lifestyle(i.e. work, hobbies, entertainment etc.?: No NIHSS TOTAL SCORE: 2 Other Contraindications NIHSS Low; No interference with lifestyle MEDICATIONS GIVEN Medications sodium chloride 0.9 % infusion (has no administration in time range) sodium chloride 0.9 % flush 10 mL (10 mL intravenous Given 04/09/24826) iohexoL (OMNIPAQUE) 350 mg iodine/mL injection 100 mL (100 mL intravenous Given 04/09/24826) sodium chloride 0.9 % radiology injection (80 mL intravenous Given 04/09/24826) sodium chloride 0.9 % bolus ( intravenous Stop Bag 04/09/24 1124) ondansetron (PF) (ZOFRAN) injection 4 mg (4 mg intravenous Given 6/14/24 0830) clopidogreL (PLAVIX) tablet 300 mg (300 mg oral Given 04/09/24 1011) aspirin EC tablet 81 mg (81 mg oral Given 04/09/24 1011) sodium chloride 0.9 % bolus (0 mL intravenous Stop Bag 04/09/24 1125) PAST MEDICAL HISTORY Past Medical History: Diagnosis Date Arthritis Cataract Diabetes ([facility]) Diabetes mellitus type 2, controlled ([facility]) Fractures PAST SURGICAL HISTORY Past Surgical History: Procedure Laterality Date CATARACT EXTRACTION EYE SURGERY FRACTURE SURGERY JOINT REPLACEMENT TONSILLECTOMY MEDICATIONS Medication List None ALLERGIES No Known Allergies SOCIAL HISTORY Social History Socioeconomic History Marital status: Tobacco Use Smoking status: Every Day Current packs/day: 0.50 Types: Cigarettes Smokeless tobacco: Never Vaping Use Vaping status: Never Used Substance and Sexual Activity Alcohol use: Not Currently Drug use: Not Currently Sexual activity: Defer Social Determinants of Health Food Insecurity: No Food Insecurity (04/09/2024) Hunger Screening Food Insecurity - Worry: Never True Food Insecurity - Inability: Never True 8:[address] Mcmullen spoke with Dr. Ramirez (Neurointerventionalist) via call and discussed pt's condition. Dr. Ramirez agreeable with CT scan and will call back once results are out if positive. 8:[address] Mcmullen spoke with Dr. Ramirez (Neurointerventionalist) via call and discussed pt's conditionand work up results. Dr. Ramirez recommended to admit pt here to medicine team for MRI. 8:[address] Mcmullen and Dr. Hidalgo (Hospitalist) spoke via [facility] chat about pt's condition and work up results. We are waiting on reply from Dr. Hidalgo (Hospitalist) regarding admission of pt. 9:[address] Mcmullen noted Dr. Hidalgo (Hospitalist) accepted pt's admission. 10:[address] Mcmullen spoke with Dr. Ramirez (Neurointerventionalist) via call and discussed pt's conditionand MRI results. Dr. Ramirez recommended to do telestroke and will make care of plan after tele consult but no changes in current plan of admission. Electronically signed by: Yudelka Mcmullen DO 12:23 PM 04/09/24 Yudelka Mcmullen DO 04/09/24 0800 Kajalben Denney 04/09/24 0827 Kajalben Denney 04/09/24 0838 Kajalben Denney 04/09/24 0853 Kajalben Denney 04/09/24 0908 Kajalben Denney 04/09/24 1008 Yudelka Mcmullen, 04/09/24 1132 Yudelka Mcmullen DO 04/09/24 1229 Yudelka Mcmullen, 04/09/24 1233 documented in this [facility] Plan of care note * Plan of Care - S. Aleksandra Buckley RN - 04/09/2024 11:35 AM EDT Problem: Potential for Compromised Skin Integrity Goal: Skin integrity is maintained or improved Description: Patient's goal is: INTERVENTIONS 1. Perform initial skin assessment on admission and as needed 2. Turn patient every 2 hours and PRN 3. Relieve pressure to bony prominences 4. Avoid shearing 5. Keep skin clean and dry 6. Alternate a full bath with partial baths for elderly 7. Apply lotion/moisturizer on skin 8. Monitor patient's hygiene practices 9. Float heels 10. Collaborate with interdisciplinary team and initiate plans and interventions as needed Outcome: Progressing Note: Evaluation of progress towards goal: Maintain skin integrity and tissue integrity Goal: Patient's nutritional intake is adequate Description: Patient's goal is: INTERVENTIONS 1. Assess and monitor food intake and supplements, patient food preferences, nausea, vomiting, labs, oral cavity (gums, teeth, tongue, mucosa), proper denture fit, and cultural beliefs 2. Monitor for signs of hypoglycemia and hyperglycemia 3. Collaborate with interdisciplinary team and initiate plan and interventions as ordered 4. Monitor patient's weight 5. Assist patient with meals/food selection 6. Assist patient with eating 7. Allow adequate time for meals 8. Provide pleasant environment during mealtime 9. Increase social contact during mealtimes 10. Plan activities to conserve energy 11. Encourage/perform oral hygiene as appropriate 12. Encourage patient to take dietary supplement as ordered 13. Collaborate with clinical glass bulb machine adjuster 14. Include patient/ patient's agricultural sales representative in decisions related to nutrition Outcome: Progressing Note: Evaluation of progress towards goal: Patient understands the importance of proper nutrition to aid in healing. [email or web address] [id number] Consult note* Telehealth Consult - Rajesh Rice MD - 04/09/2024 11:00 AM EDT Images from the original note were not included. Consults Tele-Stroke Telemedicine Consult Note Consent Statement: I discussed risks, benefits, and alternatives of a real-time synchronous audiovisual consultation with the patient (and any accompanying persons) including the risks that the patient's personal health details and medical records will be discussed over real-time, synchronous, interactive video/audio/telecommunication technology, the visit will not be recorded without the express consent of both the provider and the patient, and that there are some limitations compared to [id number] evaluations. We elected to proceed. 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 Patient presented this morning to [facility] Emergency Department with stroke-like symptoms, anemia, elevated troponin, DAISY. Patient states over the course of the last week that he has had multiple falls early in the morning upon wakening. Patient fell this Am propting admission. His left sided weakness is worse than normal. Non contrast CT brain did not reveal acute changes. CTA head and carotids reveal right mca distal M1 stenosis. Mri brain revealed punctate area of ischemic in right mca distribution. Patient also noted to have DAISY, anemia, hyperglycemia and elevate troponin. Patient is lying on stretcher. He appears ill. Has left sided drift, left facial droop that corrects with smile. He is covered in bruises. Patient states he has been living on his own. Does not use ambulatory device at baseline. Last known well: 1 week ago. Though weaker this am Current use of anticoagulants: No, no AC Past Medical History: Diagnosis Date Arthritis Cataract Diabetes ([facility] Diabetes mellitus type 2, controlled ([facility]) Fractures Past Surgical History: Procedure Laterality Date CATARACT EXTRACTION EYE SURGERY FRACTURE SURGERY JOINT REPLACEMENT TONSILLECTOMY Medication List ASK your doctor about these medications Instructions Last Dose Given Next Dose Due aspirin 81 mg Take 1 tablet (81 mg total) by mouth in the morning. atorvastatin 40 mg tablet Commonly known as: LIPITOR Take 1 tablet (40 mg total) by mouth nightly. insulin glargine 100 unit/mL (3 mL) insulin pen Commonly known as: LANTUS, SEMGLEE Inject 15 Units under the skin in the morning and 15 Units before bedtime. insulin lispro 100 unit/mL insulin pen Commonly known as: HumaLOG Inject 2-10 Units under the skin 4 (four) times a day with meals and nightly. 151-200, give 2 units. 201-250, give 4 units. 251-300, give 6 units. 301-350, give 8 units. 351-400, give 10 units. meloxicam 15 mg tablet Commonly known as: MOBIC TAKE 1 TABLET(15 MG) BY MOUTH IN THE MORNING Prior to Admission medications Not on File No current facility-administered medications on file prior to encounter. Current Outpatient Medications on File Prior to Encounter Medication Sig Dispense Refill aspirin 81 mg Take 1 tablet (81 mg total) by mouth in the morning. 30 tablet 1 atorvastatin (LIPITOR) 40 mg tablet Take 1 tablet (40 mg total) by mouth nightly. (Patient taking differently: Take 1 tablet (40 mg total) by mouth nightly. Pt states he is not taking) 30 tablet 1 insulin glargine (LANTUS, SEMGLEE) 100 unit/mL (3 mL) insulin pen Inject 15 Units under the skin inthe morning and 15 Units before bedtime. (Patient taking differently: Inject 15 Units under the skin Three (3) times daily after meals.) 15 mL 12 insulin lispro (HumaLOG) 100 unit/mL insulin pen Inject 2-10 Units under the skin 4 (four) times a day with meals and nightly. 151-200, give 2 units. 201- 250, give 4 units. 251-300, give 6 units. 301-350, give 8 units. 351-400, give 10 units. 15 mL 12 meloxicam (MOBIC) 15 mg tablet TAKE 1 TABLET(15 MG) BY MOUTH IN THE MORNING 30 tablet 2 No Known Allergies TOBACCO:.<1ppd ETOH:no RECREATIONAL DRUG USE: no Family History Problem Relation Age of Onset Cancer Mother Brain cancer Father No family history on file. Physical Exam: Vitals: 04/09/24 1414 BP: 111/57 Pulse: 91 Resp: 22 Temp: 36.5 C (97.7 F) SpO2: 93% Please note that parts of the physical exam were performed with assistance from bedside nursing staff. NIH Stroke Scale 1a Level of consciousness: 0=alert; keenly responsive 1b. LOC questions: 0=Performs both tasks correctly 1c. LOC commands: 0=Performs both tasks correctly 2. Best Gaze: 0=normal 3. Visual: 0=No visual loss 4. Facial Palsy: 1=Minor paralysis (flattened nasolabial fold, asymmetric on smiling) 5a. Motor left arm: 1=Drift, limb holds 90 (or 45) degrees but drifts down before full 10 seconds: does not hit bed 5b. Motor right arm: 0=No drift, limb holds 90 (or 45) degrees for full 10 seconds 6a. motor left le=Drift, limb holds 90 (or 45) degrees but drifts down before full 10 seconds: does not hit bed 6b Motor right le=No drift, limb holds 90 (or 45) degrees for full 10 seconds 7. Limb Ataxia: 0=Absent 8. Sensory: 0=Normal; no sensory loss 9. Best Language: 0=No aphasia, normal 10. Dysarthria: 0=Normal 11. Extinction and Inattention: 0=No abnormality NIHSS3 General Appearance: ill appearing, cooperative, follows commands Head: Normocephalic, without obvious abnormality Eyes: EOMIs. Vision seems intact, although exam is limited. Lungs: non-labored. Heart: on monitor Abdomen: soft, non-tender; bowel sounds normal; no masses, no organomegaly Extremities: extremities normal, atraumatic, no cyanosis or edema Skin: Skin color, texture, turgor normal. No rashes or lesions Neurologic: Grossly normal Data Reviewed: Labs: Lipid Panel: Lab Results Component Value Date CHOL 219 (H) 10/28/2023 TRIG 164 (H) 10/28/2023 HDL 43 10/28/2023 CBC: Lab Results Component Value Date WBC 9.7 04/09/2024 HGB 9.8 (L) 04/09/2024 HCT 28.3 (L) 04/09/2024 MCV 89 04/09/2024 RDW 13.9 04/09/2024 PLT 330 04/09/2024 BMP: Lab Results Component Value Date K 4.7 04/09/2024 CL 102 04/09/2024 CO2 17 (L) 04/09/2024 BUN 112 (H) 04/09/2024 CREATININE 1.49 (H) 04/09/2024 EGFR 50 (L) 04/09/2024 GLU 258 (H) 04/09/2024 PT/INR: Lab Results Component Value Date INR 1.2 (H) 04/09/2024 PTT: No results found for: APTT Troponin: Lab Results Component Value Date TROPONINI 0.01 10/26/2023 HgBA1c: Lab Results Component Value Date HGBA1C >15.5 (H) 10/26/2023 HGBA1C 15.3 (H) 10/26/2023 Radiology: CT head: no acute process CTA: right mca stenosis MRI brain: small puncate infarct in right mca distribution ASSESSMENT & PLAN Acute right hemispheric ischemic stroke - 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 If patient found to have GI bleed, will only continue aspirin - PT/OT/ST - likely will need placement - continue statin therapy - recommend repeat echocardiogram Uncontrolled diabetes - repeat A1C recommended - Aggressive blood glucose control as this is likely why his vessels are worsening Hyperliipdemia - statin therapy Hypertension - maintain permissive hypertension Intracranial Atherosclerosis - risk factor management: A1C<7, LDL<70, maintain hydration DAISY - recommend fluids Anemia - rule out GI bleed. Additional Recommendations: Admit to [facility]. We will continue to follow along In preparation of caring for this patient, Alexandra Souza APRN-YUKI, assisted with documentation during the assessment of this patient. If you have any further questions please feel free to contact the Telestroke/ Stroke Team. Thank you for asking us to be part of this patient's care. [id number] Telestroke Consult from 30-50 minutes This note was completed using a voice business owner/engineer system. Every effort was made to ensure accuracy; however, inadvertent computerized business owner/engineer errors may be present In preparation of caring for this patient, I, Rajesh Rice MD, was the primary provider of care for this patient. I personally reviewed previous medical history, laboratory studies, neuro-imaging, andcompleted a face to face physical assessment on this patient via camera. To the best of my ability,the assessment and plan was discussed with patient and bedside staff. [employer] Phone: [phone] Emergency department Triage note* Loren Middleton RN - 04/09/2024 9:29 AM EDT Patient presents via EMS as a stroke alert. LKW 10:30 last night. Patient states he had frequent falls yesterday and was not feeling right. [facility] [id number] Emergency department Triage note* Loren Middleton RN - 04/09/2024 8:30 AM EDT Patient presents via EMS as a stroke alert. LKW 10:30 last night. Patient states he had frequent falls yesterday and was not feeling right. [facility] [id number] Physician Emergency department Note* Yudelka Mcmullen DO - 04/09/2024 8:00 AM EDTAssociated Order(s): ED NIHSS MD Screening DISPOSITION Observation CLINICAL IMPRESSION 1. Stroke-like symptoms 2. DAISY (acute kidney injury) (CMS-HCC) 3. Anemia, unspecified type 4. Elevated troponin ED COURSE / MEDICAL DECISION MAKING / TREATMENT PLAN: Chart was reviewed. Patient was seen and examined by myself in the emergency department for stroke symptoms. Upon presentation to the emergency department stroke alert was activated for reports of ataxia at home with history of previous stroke. Patient taken to CT scanner in stable condition. Physical exam does reveal appreciable weakness to the left side and left-sided facial droop. Looking back through the patient's chart from December 11 2023 this is reportedly chronic for the patient. NIHSS of 2 forleft arm drift and left-sided facial droop. I did personally review the patient's CT imaging and did not appreciate any acute bleed or obvious stroke. Radiology does comment on increased narrowing ofthe M1 and M2 segment on the right side. I did speak with the stroke team in regards to the patient's history, physical exam, lab work and imaging. They did not recommend any acute intervention at this time but did recommend admission and tele stroke workup. Tele stroke workup was conducted in the emergency department without any change to the current plan for the patient to be admitted to the hospital with Plavix and aspirin. Patient continues to remain well in the emergency department withoutany new focal neurological deficits. Patient's lab work was significant for creatinine of 1.49. Slightly low hemoglobin of 9.8. Denies any active bleeding. Patient does have DAISY with creatinine of 1.49. Patient was given IV fluids in the emergency department. Troponin was also elevated however multiple EKGs in the emergency department did not reveal any signs of STEMI. This is likely from DAISY andstroke. Low concern for ACS. X-ray imaging was reviewed of the patient's wrist, pelvis, ankle, knee. I did not appreciate any obvious fracture. Radiology does confirm this. I did discuss the patient's history, physical exam, lab work and imaging with Internal Medicine who does agree to admit the patient for further evaluation and management. Patient continues to remain stable in the emergency department and was admitted to internal medicine. See below for complete physical exam, lab/diagnostic tests ordered with results, vital signs, and medications given. The results were discussed with the patient/child care aide and they expressed verbal understanding. Patient/child care aide understands and agrees with plan. Patient appears stable on final evaluation andwill be admitted at this time. ED Course as of 04/09/24 1223 FriApr 09, 2024 0819 I did speak with Dr. Ramirez of stroke team. He recommends no current intervention at this time and to call back when imaging is back. Patient otherwise seems to be at his baseline other than reported gait instability however does not have significant ataxia on exam. NIHSS of 2 for left-sided facial droop and left arm drift. These are noted to be chronic for the patient. [RW] 0907 I did speak again with the stroke team who does recommend admission to hospital for potential transfer to [place]. He does recommend permissive hypertension up to 220 systolic. He does recommend Plavix 300, aspirin 81 and MRI, patient continues to remain stable in the emergency department no new focal neurological deficits. [RW] 1007 Notified of and reviewed MRI results. I did reach out again to the Stroke Team who recommends to conduct the tele stroke visit at this time and to decide where to go from there. Patient continues to have no change to his neurological status in the emergency department. Nursing notified and tele stroke camera placed in the room. [RW] 1009 Creatinine(!): 1.49 Given more iv fluids for daisy, awaiting urine [RW] 1132 1 Hour Trop I, High Sensitivity(!): 60 Likely related to DAISY and stroke, will order a 3 hour troponin. EKG without STEMI [RW] ED Course User Index [RW] Yudelka Mcmullen, DO Clinical Impressions as of 04/09/24 1223 Stroke-like symptoms DAISY (acute kidney injury) ([facility]) Anemia, unspecified type Elevated troponin HPI Initial evaluation preformed by Dr. Mcmullen at 8:15 AM Vashti Massey 68 y.o. male presents to ED via EMS with c/o Stroke Alert. Last well known: 04/08/2024, 10:30 PM. Pt states that he went to bed asymptomatic at 10:30 PM last night and woke up around midnight due to dizziness. Pt called EMS for himself as he has been falling out whole last night due to unsteady. Pt reports weakness in L side of body including LLE, LUE, and L side of face from last stroke. Pt noted only new complain for today's visit is unsteadiness and R wrist pain frommultiple fall. Pt has no recent illness or feeling like sick. Pt noted hs usually have vomit with IV contrast, noted had one today as well. Pt denies neck pain, fever, chest pain, SOB, and abdominal p ain. Pt has no known medications allergy. HPI REVIEW OF SYSTEMS See HPI PHYSICAL EXAM Physical Exam Vitals and nursing note reviewed. Constitutional: Appearance: Normal appearance. He is not toxic-appearing. HENT: Head: Normocephalic and atraumatic. Right Ear: External ear normal. Left Ear: External ear normal. Nose: Nose normal. No rhinorrhea. Mouth/Throat: Lips: [place]. Mouth: Mucous membranes are moist. Eyes: General: No scleral icterus. Extraocular Movements: Extraocular movements intact. Conjunctiva/sclera: Conjunctivae normal. Pupils: Pupils are equal, round, and reactive to light. Neck: Trachea: No tracheal deviation. Cardiovascular: Rate and Rhythm: Normal rate and regular rhythm. Pulses: Normal pulses. Heart sounds: Normal heart sounds. No murmur heard. No gallop. Pulmonary: Effort: Pulmonary effort is normal. No accessory muscle usage or respiratory distress. Breath sounds: Normal breath sounds. No wheezing. Abdominal: General: Abdomen is flat. There is no distension. Palpations: Abdomen is soft. Tenderness: There is no abdominal tenderness. Musculoskeletal: General: No deformity. Normal range of motion. Cervical back: Normal range of motion and neck supple. Right lower leg: No edema. Left lower leg: No edema. Skin: General: Skin is warm and dry. Capillary Refill: Capillary refill takes less than 2 seconds. Findings: Bruising (to L ankle and R wrist noted) present. No rash. Neurological: General: No focal deficit present. Mental Status: He is alert and oriented to person, place, and time. Comments: Chronic weakness in L arm and L leg weakness. Chronic L facial droop. NIHSS 2. Alert and oriented, answering questions appropriately. No obvious ataxia or visual field deficit. Psychiatric: Mood and Affect: Mood normal. Behavior: Behavior normal. Vitals: 04/09/24 1105 04/09/24 1110 04/09/24 1200 04/09/24 1222 BP: 120/76 121/53 122/78 117/60 Pulse: 98 94 97 106 Resp: 22 16 20 19 Temp: TempSrc: SpO2: 95% 94% 97% 100% Weight: Height: DIAGNOSTIC TESTING MR brain without contrast Final Result X-ray pelvis 1 or 2 views Final Result X-ray knee left 3 views Final Result X-ray ankle left minimum 3 views Final Result X-ray wrist right minimum [address] angiogram carotid Final Result CT angiogram head Final Result CT brain without contrast stroke alert Final Result Labs Reviewed TROPONIN I, HIGH SENSITIVITY - Abnormal; Notable for the following components: Result Value Troponin I, High Sensitivity 38 (*) All other components within normal limits TROP I, HIGH SENSITIVITY 1 HOUR - Abnormal; Notable for the following components: 1 Hour Trop I, High Sensitivity 60 (*) All other components within normal limits BASIC METABOLIC PANEL - Abnormal; Notable for the following components: Sodium 131 (*) CO2 17 (*) BUN 112 (*) Creatinine 1.49 (*) Glucose 328 (*) Calcium 8.4 (*) eGFR (CKD-EPI)non-race dependent 50 (*) All other components within normal limits PROTIME & INR - Abnormal; Notable for the following components: Protime 14.0 (*) Inr 1.2 (*) All other components within normal limits APTT - Abnormal; Notable for the following components: aPTT 24 (*) All other components within normal limits CBC WITH AUTO DIFFERENTIAL - Abnormal; Notable for the following components: RBC count 3.16 (*) Hemoglobin 9.8 (*) Hematocrit 28.3 (*) Neutrophils Absolute (A) 8.5 (*) Lymphocytes Absolute 0.9 (*) All other components within normal limits URINALYSIS TROP I, HIGH SENSITIVITY 3 HOUR BEDSIDE GLUCOSE ED NIHSS MD Screening Performed by: Yudelka Mcmullen DO Authorized by: Yudelka Mcmullen DO Time NIHSS was performed: 04/09/2024 8:16 AM Interval: Baseline LOC: 0 - Alert LOC Questions: 0 - Answers both correctly LOC Commands: 0 - Performs both tasks correctly Best Gaze: 0 - Normal horizontal movements Visual [place]: 0 - No visual field defect Facial Movements: 1 - Minor facial weakness Motor Function Right Arm: 0 - No drift right arm holds for 10 seconds Motor Function Left Arm: 1 - Left arm falls before 10 seconds, does not touch bed Motor Function Right Le - No drift right leg holds for full 5 seconds Motor Function Left Le - No drift left leg, holds for full 5 seconds Limb Ataxia: 0 - No limb ataxia Sensory: 0 - No sensory loss Language: 0 - Language normal Articulation: 0 - Articulation normal Extinction or Inattention: 0 - Extinction or inattention absent TOTAL SCORE: 2 ONSET OF SYMPTOMS: Date: 04/08/2024 Time: 22:30 EDT NIHSS stroke scale completed Onset: Onset greater than 4.5 hours - Patient not eligible for TPA Stroke team initiated FINAL EVALUATION FOR THROMBOLYTIC: Do presenting disabilities interfere with lifestyle(i.e. work, hobbies, entertainment etc.?: No NIHSS TOTAL SCORE: 2 Other Contraindications NIHSS Low; No interference with lifestyle MEDICATIONS GIVEN Medications sodium chloride 0.9 % infusion (has no administration in time range) sodium chloride 0.9 % flush 10 mL (10 mL intravenous Given 04/09/24826) iohexoL (OMNIPAQUE) 350 mg iodine/mL injection 100 mL (100 mL intravenous Given 04/09/24826) sodium chloride 0.9 % radiology injection (80 mL intravenous Given 04/09/24826) sodium chloride 0.9 % bolus ( intravenous Stop Bag 04/09/24 1124) ondansetron (PF) (ZOFRAN) injection 4 mg (4 mg intravenous Given 04/09/24 0830) clopidogreL (PLAVIX) tablet 300 mg (300 mg oral Given 04/09/24 1011) aspirin EC tablet 81 mg (81 mg oral Given 04/09/24 1011) sodium chloride 0.9 % bolus (0 mL intravenous Stop Bag 04/09/24 1125) PAST MEDICAL HISTORY Past Medical History: Diagnosis Date Arthritis Cataract Diabetes ([facility]) Diabetes mellitus type 2, controlled ([facility]) Fractures PAST SURGICAL HISTORY Past Surgical History: Procedure Laterality Date CATARACT EXTRACTION EYE SURGERY FRACTURE SURGERY JOINT REPLACEMENT TONSILLECTOMY MEDICATIONS Medication List None ALLERGIES No Known Allergies SOCIAL HISTORY Social History Socioeconomic History Marital status: Tobacco Use Smoking status: Every Day Current packs/day: 0.50 Types: Cigarettes Smokeless tobacco: Never Vaping Use Vaping status: Never Used Substance and Sexual Activity Alcohol use: Not Currently Drug use: Not Currently Sexual activity: Defer Social Determinants of Health Food Insecurity: No Food Insecurity (04/09/2024) Hunger Screening Food Insecurity - Worry: Never True Food Insecurity - Inability: Never True 8:[address] Mcmullen spoke with Dr. Ramirez (Neurointerventionalist) via call and discussed pt's condition. Dr. Ramirez agreeable with CT scan and will call back once results are out if positive. 8:[address] Mcmullen spoke with Dr. Ramirez (Neurointerventionalist) via call and discussed pt's conditionand work up results. Dr. Ramirez recommended to admit pt here to medicine team for MRI. 8:[address] Mcmullen and Dr. Hidalgo (Hospitalist) spoke via Epic chat about pt's condition and work up results. We are waiting on reply from Dr. Hidalgo (Hospitalist) regarding admission of pt. 9:[address] Mcmullen noted Dr. Hidalgo (Hospitalist) accepted pt's admission. 10:[address] Mcmullen spoke with Dr. Ramirez (Neurointerventionalist) via call and discussed pt's conditionand MRI results. Dr. Ramirez recommended to do telestroke and will make care of plan after tele consult but no changes in current plan of admission. Electronically signed by: Yudelka Mcmullen DO 12:23 PM 04/09/24 Yudelka Mcmullen DO 04/09/24 0800 Kajalben Denney 04/09/24 0827 Kajalben Denney 04/09/24 0838 Kajalben Denney 04/09/24 0853 Kajalben Denney 04/09/24 0908 Kajalben Denney 04/09/24 1008 Yudelka Mcmullen DO 04/09/24 1132 Yudelka Mcmullen DO 04/09/24 1229 Yudelka Mcmullen, 04/09/24 1233 [facility]04-18-2024 History of Present illness Narrative* Klaus Yeboah MD - 02/12/2024 8:50 AM EDTAssociated Order(s): Large Joint Injection/Arthrocentesis - PA: R knee Pre-Procedure Diagnose(s): Right knee pain, unspecified chronicity; Arthritis of right knee Post-Procedure Diagnose(s): Right knee pain, unspecified chronicity; Arthritis of right knee Images from the original note were not included. [facility] [address] [facility] [id number] CHART NOTE: 02/12/2024 Chief Complaint: Chief Complaint Patient presents with Right Knee - Follow-up RT knee Durolane Subjective History Vashti Massey is a 68 y.o. male who presents to the office today for evaluation of his right knee. The patient has a history of right knee osteoarthritis. We recently sought approval for Durolane injection for the right knee. This was approved and he presents today to receive the injection. He denies any changes in regards to his knee since last visit. The patient does have a history of a stroke and has had gait instability since. He does ambulate with a walker today. Past Medical, Family, Surgical, and Social History, as well as Medications, Allergies, and Review of Systems were reviewed and can be seen in the patient's chart. Objective History: Body mass index is 35.01 kg/m . Patient was alert and oriented x3, no apparent distress. Upon examination of the right knee, skin is dry and intact without signs of erythema or ecchymosis. No signs of effusion. He does have mild joint line pain to palpation. Range of motion is 5-110 degrees. Extensor mechanism was intact. Knee was stable to valgus and varus stress testing. He does have some weakness with strength testing. He was neurovascularly intact distally with sensation of light touch and brisk capillary refill. XRAYS: X-ray knee right minimum 4 views Findings: [...] medial compartment joint space and varus deformity. Assessment 1. Right knee pain, unspecified chronicity 2. Arthritis of right knee Plan: The patients physical exam findings and treatment options were discussed with him today. The patient would like to proceed with the Durolane injection today. We did also give him an order for physical therapy to work on gait training and stability. I will follow-up with him in 3 months for re-evaluation. All questions were answered. Large Joint Injection/Arthrocentesis - PA: R knee on 02/12/2024 9:23 AM Indications: pain Details: 22 G needle, anterolateral approach Medications: 60 mg hyaluronate sodium, stabilized 60 mg/3 mL Outcome: tolerated well, no immediate complications Procedure, treatment alternatives, risks and benefits explained, specific risks discussed. Consent was given by the patient. Patient was prepped and draped in the usual sterile fashion. I, Klaus Yeboah MD, personally performed the face to face evaluation on this patient. I discussedwith the patient and confirmed the accuracy and completeness of the aforementioned history preparedby the advance practice provider, and I personally performed the clinical examination of the patient. I discussed the treatment plan with the patient. I have updated the above note prior to signing to reflect my evaluation of the patients condition and treatment plan. Other significant notes are asfollows: Vashti is a very nice 68 y.o. male who presents to my clinic for severe right knee OA. Heis here for durolane injection and tolerate this well. Would like him to RTC in three months to reasess. He needs to work on smoking cessation. Needs to work on BG management. Needs to start PT. Candidate for TKA when medically optimized. We will get new hip xrays at his next visit. Klaus Yeboah MD Adult Reconstruction [facility] [address] [place] [address], [address] W: [phone] F: [phone] documented in this encounterCity HospitalFluentify [facility] [id number] History of Present illness Narrative* Klaus Yeboah MD - 12/30/2023 10:15 AM EST Images from the original note were not included. Vashti Massey 1955 [id number] Last encounter with me: Visit date not [...] in the past including gel lubricants. He alison smoker and has tar on finger tips. His daughter who is with him says she is concerned about his smoking. He does report hip pain and stiffness. PREVIOUS TREATMENT: injections PERTINENT PMH: tobacco use and DM Past Medical History: Diagnosis Date Arthritis Cataract Diabetes ([facility]) Diabetes mellitus type 2, controlled ([facility]) Fractures Past Surgical History: Procedure Laterality Date [...] meals and nightly. 151-200, give 2 units. 201- 250, give 4 units. 251-300, give 6 units. 301-350, give 8 units. 351-400, give 10 units. 15 mL 12 insulin glargine (LANTUS, SEMGLEE) 100 unit/mL (3 mL) insulin pen Inject 15 Units under the skin inthe morning and 15 Units before bedtime. (Patient [...] total) by mouth in the morning. Dispense: 30tablet; Refill: 2 - Ambulatory referral to Physical [...] to all of this. His daughter was hereas well. I, Klaus Yeboah MD, personally performed the face to face evaluation on this patient. I discussedwith the patient and confirmed the accuracy and completeness of the aforementioned history preparedby the [facility] practice provider, and I personally performed the clinical examination of the patient. I discussed the treatment plan with the patient. I have updated the above note prior to signing to reflect my evaluation of the patients condition and treatment plan. Other significant notes are asfollows: Vashti is a very nice 68 y.o. [...] will submit for visco approval and when hecomes for this visit we will get hip xrays.. Klaus Yeboah MD Adult Reconstruction [facility] [address] [place] [address], [address] W: [phone] F: [phone] [facility] History of Present illness Narrative* Nae Rojas MD - 12/11/2023 11:30 AM EST Reason for visit: Post stroke care, hospital [...] disturbance, cognitive impairment, inability to speak, involuntary movementsof the extremities, loss of vision bilaterally, numbness [...] preserved ejection fraction, mild LVH, mild right ventriculardilatation, grade 1 diastolic dysfunction. Patient was started [...] following infrequently since being discharged on the hospital.He tends to lose his balance when he [...] past medical history, past social history, past surgicalhistory, problem list, and medication reconciliation was completed including current medication andpost discharge medication. Review of Systems Review of Systems Constitutional: Positive for malaise/fatigue and weight loss. Negative for chills and fever. HENT: Negative for nosebleeds. Eyes: Negative for blurred vision, double vision, photophobia, vision loss in left eye, vision lossin right eye and visual disturbance. Cardiovascular: Positive [...] Neurological: Positive for disturbances in coordination, dizziness, light- headedness, loss of balance and vertigo. Negative for aphonia, difficulty with concentration, focal weakness, headaches, numbness, paresthesias, seizures, sensory change and weakness. Psychiatric/Behavioral: Negative for altered mental status, depression and memory loss. The patienthas insomnia. The patient is not nervous/anxious. Past Medical History Past Medical History: Diagnosis Date Arthritis Cataract Diabetes ([facility]) Diabetes mellitus type 2, controlled ([facility]) Fractures Past Surgical History Past Surgical History: [...] Units under the skin 4 (four) times aday with meals and nightly. 151-200, give 2 units. 201-250, give 4 units. 251-300, give 6 units. 301-350, give 8 units. 351-400, give 10 units., Disp: 15 mL, Rfl: 12 insulin glargine (LANTUS, SEMGLEE) 100 unit/mL (3 mL) insulin pen, Inject 15 Units under the skin in the morning and 15 Units before bedtime. (Patient not taking: Reported on 12/11/2023), Disp: 15 mL,Rfl: 12 Allergies: No Known Allergies Last Neuro Imaging: Refer to HPI Objective: BP 126/73 (BP Site: Left Arm, BP Postition: Sitting, BP CUFF SIZE: M (9-13 inches)) Pulse 90 Ht177.8 cm (5' 10 ) Wt 110.7 kg [...] hyperglycemia, with long-term current use of insulin ([facility]) Cerebrovascular accident (CVA) due to thrombosis ([facility]) Mixed hyperlipidemia Sequelae, post-stroke Gait instability Status [...] me in 3 months. 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 Sincerely, Your Patient Services Outbound Team [facility] note Future Appointments Appointment Date:01/21/2025 03:00:00 PM Scheduled Provider:JAROCHO POST MD Location:[facility] Appointment Type:URO Office Visit [facility] Evaluation + Plan note Future Appointments Appointment Date:10/07/2025 03:00:00 PM Scheduled Provider:JAROCHO POST MD Location:[facility] Appointment Type:URO Office Visit [facility] Evaluation note* Diagnosis Onset Date Resolution Status Cerebral atherosclerosis acu te Cigarette nicotine dependence without complication acute Hypercholesterolemia acute Primary hypertension acute Type 2 diabetes mellitus with hyperglycemia [facility] Work Phone: Evaluation note* Diagnosis Onset Date Resolution Status Cerebral atherosclerosis acu te Cigarette nicotine dependence without complication acute Hypercholesterolemia acute Primary hypertension acute Primary osteoarthritis of right knee acute Type 2 diabetes mellitus with hyperglycemia acute Cerebral atherosclerosis acu te Cigarette nicotine dependence without complication acute Hypercholesterolemia acute Primary hypertension acute Type 2 diabetes mellitus with hyperglycemia [facility] Work Phone: Evaluation note* Diagnosis Onset [...] Type 2 diabetes mellitus with hyperglycemia [facility] Work Phone: Evaluation note* Diagnosis Hematuria- Primary Hematuria, unspecified Hematuria Hematuria, unspecified Chronic indwelling Cyr catheter Tobacco use Hyponatremia Hyposmolality and/or hyponatremia Chronic indwelling Cyr catheter Constipation Unspecified constipation documented in this encounter [facility] Work Phone: Evaluation note* Diagnosis Gallbladder polyp Cholesterolosis of gallbladder documented in this encounter [facility] Work Phone: Evaluation note* Diagnosis Constipation, unspecified constipation type- Primary Gallbladder polyp Cholesterolosis of gallbladder Cerebrovascular accident (CVA), unspecified mechanism (Multi) documented in this encounter [facility] Work Phone: Evaluation note* Diagnosis Cerebrovascular accident (CVA) due to thrombosis of precerebral artery ([facility] Primary Other cerebrovascular vasospasm and vasoconstriction [facility] Diagnosis Sequelae, post-stroke- Primary Cerebrovascular accident (CVA) due to thrombosis of precerebral artery ([facility]) Type 2 diabetes mellitus with hyperglycemia, with long-term current use of insulin ([facility]) Transient alteration of awareness Mixed hyperlipidemia Blurred vision Other specified visual disturbances Gait instability Abnormality of gait documented in this encounter [facility] Diagnosis Arthritis of right knee- Primary Right knee pain, unspecified chronicity Right knee pain, unspecified chronicity [facility] Diagnosis Arthritis of right knee [facility]* Diagnosis Right knee pain, unspecified chronicity Arthritis of right knee [facility]* Diagnosis Cerebrovascular accident (CVA) due to occlusion of right middle cerebral artery ([facility])- Primary Stroke-like symptoms DAISY (acute kidney injury) ([facility]) Anemia, unspecified type Elevated troponin Other abnormal blood chemistry Stroke-like symptoms Type 2 diabetes mellitus with hyperglycemia, with long-term current use of insulin ([facility]) Mixed hyperlipidemia Gait instability Abnormality of gait Acute renal failure with acute renal cortical necrosis superimposed on stage 3a chronic kidney disease ([facility]) documented in this encounter [facility] N[facility] - Reported* Type Description Date Medical History Cerebral atherosclerosis Medical History Hypercholesterolemia Medical History Primary hypertension Medical History Cigarette nicotine dependence wi thout complication Surgical History Tonsillectomy Surgical History Right Shoulder Surgery Surgical History Left TKA 2009 Surgical History Right Knee Arthroscopy x2 Surgical History 2: cataracts Surgical History ORIF Right Wrist Hospitalization History see surgical history [facility] Other Hospital course Narrative No data available for this section [facility] Hospital Discharge instructionsNot on filedocumented in this encounterProMedica Health SystemInstructionsNot on filedocumented in this encounterProMedica Health SystemInstructionsNot on filedocumented in this encounterProMedica Health SystemInstructionsNot on filedocumented in this encounterProMedica Health SystemInstructionsNot on filedocumented in this encounterProMedica Health SystemInstructionsNot on filedocumented in this encounterProMedica Health SystemInstructionsNot on filedocumented in this encounterProMedica Health SystemInstructionsNot on filedocumented in this encounterProMedica Health SystemProgress note No data available for this section [facility] Reason for visit NarrativeDiabetic education/XR results [facility] Other Reason for visit Narrative* Auth/Cert Specialty Diagnoses / Procedures Referred By Shanice wood Referred To Contact Diagnoses Hematuria hematuria Gricelda Perea MD [address] [facility] [address] [place] [address] Phone: tel: fax: [address] [address] Phone: tel: Referral ID Status Reason Start Date Expiration Date Visits Re quested Visits Authorized [id number] 1 1 [facility] Work Phone: Summary Purpose Family History No Family History Records Found Relationship Condition Age at Onset Recorded Date/T dinorah Not Specified Malignant neoplasm Unknown History of stroke Unknown Relationship Condition Age at Onset Recorded Date/T dinorah mother Malignant neoplasm Unknown History of stroke Unknown sister Diabetes mellitus Unknown Malignant neoplasm Unknown Advance Directives No Advanced Directives Records Found Advance Directive Response Recorded Date/ Time Advance Directives No November 26, 2023 12:50pm Date Activated Date Inactivated Comments 10/02/2024 6:07 AM Question Answer Comments Plan of Care: Code Status Discussion Completed Decision Maker: Patient Advance Directive Response Recorded Date/ Time Advance Directives No November 26, 2023 11:50am Latest Code Status on File Code Status Date Activated Date Inactivated Comments Full Code 10/28/2023 8:46 AM 10/29/2023 3:57 PM Latest Code Status on File Code Status Date Activated Date Inactivated Comments Full Code 10/28/2023 8:46 AM 10/29/2023 3:57 PM Date Activated Date Inactivated Comments 10/28/2023 8:46 AM 10/29/2023 3:57 PM Date Activated Date Inactivated Comments 10/28/2023 8:46 AM 10/29/2023 3:57 PM Date Activated Date Inactivated Comments 04/09/2024 1:49 PM Date Activated Date Inactivated Comments 10/28/2023 8:46 AM 10/29/2023 3:57 PM Documents on File Type Date Recorded 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 05/21/2024 4:26 PM Date Activated Date Inactivated Comments 05/27/2024 5:35 PM 06/01/2024 4:39 PM Date Activated Date Inactivated Comments 04/11/2024 7:34 AM 04/21/2024 4:56 PM Date Activated Date Inactivated Comments 04/09/2024 1:49 PM 04/10/2024 5:48 PM Date Activated Date Inactivated Comments 10/28/2023 8:46 AM 10/29/2023 3:57 PM Date Activated Date Inactivated Comments 06/05/2024 9:55 PM 06/12/2024 1:06 AM Date Activated Date Inactivated Comments 05/27/2024 5:35 PM 06/01/2024 4:39 PM Date Activated Date Inactivated Comments 04/11/2024 7:34 AM 04/21/2024 4:56 PM Date Activated Date Inactivated Comments 04/09/2024 1:49 PM 04/10/2024 5:48 PM Date Activated Date Inactivated Comments 10/28/2023 8:46 AM 10/29/2023 3:57 PM Chief Complaint and Reason for Visit Chief [...] 2 diabetes mellitus with hyperglycemia Chief Complaint Admit Date Longterm Visit August 19, 2024 1 1:59pm urogenital bleeding October 06, 2024 8:35pm urogenital bleeding October 08, 2024 1:23pm urogenital bleeding October 09, 2024 9:59am Longterm Visit October 19, 2024 11:59pm Unknown October 28, 2024 12 :00pm Reason for Visit Admit Date Acute UTI October 06, 2024 8:35pm BPH loc w urin obs/LUTS October 06 024 8:35pm Bradycardia October 06, 2024 8:35pm Complicated UTI (urinary tract infection ) October 06, 2024 8:35pm Cyst, kidney, acquired October 06 8:35pm ESBL (extended spectrum beta -lactamase) producing bacteria infection October 06, 2024 8:35pm Hematuria October 06, 2024 8:35pm HTN (hypertension) October 06, 2024 8:35pm Hypoxia October 06, 2024 8:35pm Normocytic anemia October 06, 2024 8:35pm Renal cyst, acquired, left September 8:35pm T2DM (type 2 diabetes mellitus) October 06, 2024 8:35pm Acute blood loss anemia October 06, 024 8:35pm Hypomagnesemia October 06, 2024 8:35pm Left renal mass October 06, 2024 8:35pm Reason for Referral Specialty Diagnoses / Procedures Referred By Contac t Referred To Contact Rehabilitation Diagnoses Arthritis of right knee Klaus Yeboah MD [address] [place] [address] Referral ID Status Reason Start Date Expiration Date Visits Requested Visits Authorized [id number] Pending Review Specialty Services Required 12/30/2023 12/29/2024 1 1 Specialty Diagnoses / Procedures Referred By Contac t Referred To Contact Diagnoses Right knee pain, unspecified chronicity Arthritis of right knee Procedures Large Joint Injection/Arthrocentesis - [place] Klaus Yeboah MD [address] [place] [address] [facility] [address] [place] [address] Referral ID Status Reason Start Date Expiration Date V isits Requested Visits Authorized [id number] Pending Review 12/30/2023 12/29/2024 1 1 Specialty Diagnoses / Procedures Referred By Contac t Referred To Contact Rehabilitation Diagnoses Cerebrovascular accident (CVA) due to thrombosis of precerebral artery ([facility]) Sequelae, post-stroke Gait instability Nae Rojas MD [address] [place] [address], [address] [place] [address] Referral ID Status Reason Start Date Expiration Date Visits Requested Visits Authorized [id number] Pending Review Specialty Services Required 12/11/2023 12/10/2024 1 1 Specialty Diagnoses / Procedures Referred By Contac t Referred To Contact Diagnoses Cerebrovascular accident (CVA) due to thrombosis of precerebral artery ([facility]) Other cerebrovascular vasospasm and vasoconstriction Procedures Event Monitor (In Office) Kong Gallegos, NANCY-YUKI [address] [facility] [address] [place] [address] Referral ID Status Reason Start Date Expiration Date V isits Requested Visits Authorized [id number] Pending Review 10/31/2023 10/30/2024 1 1 Additional Source Comments (unrecognized sect ion and [...] content) DATE CREATED AUTHOR 05/16/2022 [facility] DATE CREATED AUTHOR AUTHOR'S ORGANIZ ATION 02/05/2024 [facility] EPIC DATE CREATED AUTHOR AUTHOR'S ORGANIZ ATION 06/02/[address] [facility] DATE CREATED AUTHOR AUTHOR'S ORGANIZ ATION 06/12/2024 [facility] DATE CREATED AUTHOR AUTHOR'S ORGANIZ ATION 06/16/2024 [facility] DATE CREATED AUTHOR AUTHOR'S ORGANIZ ATION 10/05/2024 [facility] DATE CREATED AUTHOR AUTHOR'S ORGANIZ ATION 11/11/2024 [facility] DATE CREATED AUTHOR AUTHOR'S ORGANIZ ATION 11/17/2024 [facility] DATE CREATED AUTHOR AUTHOR'S ORGANIZ ATION 12/29/2024 [facility] DATE CREATED AUTHOR AUTHOR'S ORGANIZ ATION 01/22/2025 [facility] DATE CREATED AUTHOR AUTHOR'S ORGANIZ ATION 04/20/2025 [facility] DATE CREATED AUTHOR AUTHOR'S ORGANIZ ATION 04/24/2025 [facility] DATE CREATED AUTHOR AUTHOR'S ORGANIZ ATION 04/25/2025 [facility] DATE CREATED AUTHOR AUTHOR'S ORGANIZ ATION 04/26/2025 [facility] DATE CREATED AUTHOR AUTHOR'S ORGANIZ ATION 04/27/2025 [facility] DATE CREATED AUTHOR AUTHOR'S ORGANIZ ATION 04/28/2025 [facility] DATE CREATED AUTHOR AUTHOR'S ORGANIZ ATION 04/29/2025 [facility] DATE CREATED AUTHOR AUTHOR'S ORGANIZ ATION 04/30/2025 [facility] DATE CREATED AUTHOR AUTHOR'S ORGANIZ ATION 05/01/2025 [facility] DATE CREATED AUTHOR AUTHOR'S ORGANIZ ATION 05/05/2025 [facility] DATE CREATED AUTHOR AUTHOR'S ORGANIZ ATION 05/12/2025 [facility] REASON FOR VISIT (unrecogniz ed section and content) Reason Comments New Patient Visit Gallbladder nodules Specialty Diagnoses / Procedures Referred By Contchu t Referred To Contact Diagnoses Gallbladder polyp Sarah Villareal MD [address] [address] Phone: tel: fax: Suellen Cooper MD PhD [address] [employer] [address] [address] Phone: tel: fax: Referral ID Status Reason Start Date Expiration Date Visits Requested Visits Authorized [id number] Authorized Specialty Services Required 11/02/2024 11/02/2025 1 1 Reason Comments New Patient Visit Nodules on gallbladd er Reason Comments Pain New patient right kn ee pain, patient states his knee has been bothersome for some time, increasing recently. States that his balance is being affected. States he has pain getting in and out of the car, going up steps and getting up from a seated position. No prior surgery, diabetic Xr today Reason Comments Med Refill Reason Comments Follow-up RT knee Durolane Specialty Diagnoses / Procedures Referred By Contac t Referred To Contact Diagnoses Right knee pain, unspecified chronicity Arthritis of right knee Procedures Large Joint Injection/Arthrocentesis - Klaus Lou MD [address] [facility] [place] [address] [facility] [address] [place] [address] Referral ID Status Reason Start Date Expiration Date Visits Re quested Visits Authorized [id number] Closed 12/30/2023 12/29/2024 1 1 Reason Comments Stroke Alert Specialty Diagnoses / Procedures Referred By Contac t Referred To Contact Diagnoses Elevated troponin DAISY (acute kidney injury) ([facility]) Stroke-like symptoms Anemia, unspecified type Emilia Hidalgo MD [address] , [facility] [address] [place] [address] Referral ID Status Reason Start Date Expiration Date Visits Re quested Visits Authorized [id number] 1 1 Reason Onset Date Comments Blood in Urine 10/01/2024 Reason Onset Date Comments Urinary Retention 10/01/2024 Blood in Urine 10/01/2024 Reason Comments Radiology MRI Care Teams (unrecognized sec tion and content) Team Status: Active Member Role Status Dates Eleazar Mayorga DO Primary Care Provider Active Team Status: Inactive Member Role Status Dates Eleazar Mayorga DO Attending Provider Active Sta rt: November 26, 2023 End: November 26, 2023 Team Status: Inactive Member Role Status Dates Eleazar Mayorga DO Primary Care Provide r, Attending Provider Active Start: January 23, 2024 End: January 23, 2024 Team Status: Inactive Member Role Status Dates Eleazar Mayorga DO Primary Care Provide r, Attending Provider Active Start: March 26, 2024 End: March 26, 2024 Team Status: Inactive Member Role Status Dates Eleazar Mayorga DO Primary Care Provide r, Attending Provider Active Start: March 31, 2024 End: March 31, 2024 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 Start Date End Date Eleazar Mayorga MD [address] [place] [facility] [address] PCP - General Internal Medicine 02/04/24 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 Start Date End Date Eleazar Mayorga MD [address] [place] [facility] [id number] PCP - General Internal Medicine 02/04/24 Team Status: Active Member Role Status Dates Eleazar Mayorga DO Primary Care Provide r, Attending Provider Active Start: August 19, 2024 Team Status: Active Member Role Status Dates Eleazar Mayorga DO Primary Care Provider Active Start: September 29, 2024 Cyndy Blair , DO Attending Provider Active Start: September 29, 2024 Team Status: Active Member Role Status Dates Eleazar Mayorga DO Primary Care Provider Active Start: September 30, 2024 Shaikh Zainab MD Attending Provider Active Sta rt: September 30, 2024 Team Status: Active Member Role Status Dates Eleazar Mayorga DO Primary Care Provide r, Attending Provider Active Start: October 01, 2024 Team Status: Inactive Member Role Status Dates Eleazar Mayorga DO Primary Care Provider Active Start: October 06, 2024 End: October 12, 2024 Tori Morris MD Emergency Provider Active Start: October 06, 2024 End: October 12, 2024 Juany Sabillon MD Admit Provider Active Start : October 06, 2024 End: October 12, 2024 Mauro Mcdonald MD Other Provider Active Start: D [email or web address] End: October 12, 2024 GRANT Tobin Other Provider Active Start: October 06, 2024 End: October 12, 2024 Nadia Youngblood MD Other Provider Active Start: Webb 2023 End: October 12, 2024 Sharmaine Jimenez MD Other Provider Active Start: D ec2023 End: October 12, 2024 Dionte Rizvi MD Other Provider Active Start: October 06, 2024 End: October 12, 2024 Addy Portillo MD Other Provider Active Start: October 06, 2024 End: October 12, 2024 Ester Carlos MD Other Provider Active Start: Webb 2023 End: October 12, 2024 Luis Cherry MD Other Provider Active Start: October 06, 2024 End: October 12, 2024 Dionte Pereira MD Other Provider Active Start : October 06, 2024 End: October 12, 2024 Kong Davidson MD Other Provider Active S tart: October 06, 2024 End: October 12, 2024 Jarocho Post MD Other Provider Active Start: October 06, 2024 End: October 12, 2024 Yamila Roman NP-C Other Provider Active Star t: October 06, 2024 End: October 12, 2024 Donna Griffin THREAD DRESSER- Other Provider Active Sta rt: October 06, 2024 End: October 12, 2024 Gerard Platt II, Other Provider Active Start: October 06, 2024 End: October 12, 2024 Ricardo Ortega MD Other Provider Active Start: October 06, 2024 End: October 12, 2024 Lisset Wilson Other Provider Active Start: October 06, 2024 End: October 12, 2024 Clayton Aden , PhD Other Provider Active S tart: October 06, 2024 End: October 12, 2024 Skylar Fam DO Other Provider Active Start: October 06, 2024 End: October 12, 2024 Eduar Lawrence MD Other Provider Active Start : October 06, 2024 End: October 12, 2024 Kong Menezes DO Other Provider Active Start: October 06, 2024 End: October 12, 2024 Collin Bess DO Other Provider Active Start: October 06, 2024 End: October 12, 2024 Shanice Adames APRN Other Provider Active St art: October 06, 2024 End: October 12, 2024 Crystal Bradford NP-C Other Provider Active Sta rt: October 06, 2024 End: October 12, 2024 Alexandra Loya APRN-THREAD DRESSER-C Other Provider Active Start: October 06, 2024 End: October 12, 2024 Bryson Chavez MD Attending Provider Active Start : October 06, 2024 End: October 12, 2024 Team Status: Active Member Role Status Dates Eleazar Mayorga DO Primary Care Provider Active Start: October 08, 2024 Tori Morris MD Emergency Provider Active Start: October 08, 2024 Juany Sabillon MD Admit Provider Active Start : October 08, 2024 Debbie Lundberg MD Other Provider Active Start: 2023 Mauro Mcdonald MD Other Provider Active Start: 2023 Alma Glass NP-C Other Provider Active Start: October 08, 2024 Nadia Youngblood MD Other Provider Active Start: 2023 Sharmaine Jimenez MD Attending Provider, Other Provider Active Start: October 08, 2024 Dionte Rizvi MD Other Provider Active Start: October 08, 2024 Addy Portillo MD Other Provider Active Start: October 08, 2024 Ester Carlos MD Other Provider Active Start: 2023 Luis Cherry MD Other Provider Active Start: October 08, 2024 Dionte Pereira MD Other Provider Active Start : October 08, 2024 Kong Davidson MD Other Provider Active S tart: October 08, 2024 Jarocho Post MD Other Provider Active Start: October 08, 2024 Yamila Roman NP-C Other Provider Active Star t: October 08, 2024 Donna Griffin THREAD DRESSER-BC Other Provider Active Sta rt: October 08, 2024 Gerard Platt II, DO Other Provider Active Start: October 08, 2024 Team Status: Active Member Role Status Dates Eleazar Mayorga DO Primary Care Provider Active Start: October 09, 2024 Tori Morris MD Emergency Provider Active Start: October 09, 2024 Juany Sabillon MD Admit Provider Active Start : October 09, 2024 Debbie Lundberg MD Other Provider Active Start: 2023 Mauro Mcdonald MD Other Provider Active Start: 2023 BENNETT TobinC Other Provider Active Start: October 09, 2024 Nadia Youngblood MD Other Provider Active Start: 2023 Sharmaine Jimenez MD Other Provider Active Start: 2023 Dionte Rizvi MD Other Provider Active Start: October 09, 2024 Addy Portillo MD Other Provider Active Start: October 09, 2024 Ester Carlos MD Other Provider Active Start: 2023 Luis Cherry MD Other Provider Active Start: October 09, 2024 Dionte Pereira MD Other Provider Active Start : October 09, 2024 Kong Davidson MD Other Provider Active S tart: October 09, 2024 Jarocho Post MD Other Provider Active Start: October 09, 2024 GRANT Padilla Other Provider Active Star t: October 09, 2024 FELICITA AlonsoP- Other Provider Active Sta rt: October 09, 2024 Gerard Platt II, DO Other Provider Active Start: October 09, 2024 Ricardo Ortega MD Attending Provider, Other Provider Active Start: October 09, 2024 Team Status: Active Member Role Status Dates Eleazar Mayorga DO Primary Care Provide r, Attending Provider Active Start: October 19, 2024 Team Status: Active Member Role Status Dates Eleazar Mayorga DO Primary Care Provider Active Start: October 28, 2024 Brayan Farmer MD Attending Provider Active Sta rt: October 28, 2024 Team Status: Inactive Member Role Status Dates Brayan Farmer MD Attending Provider Active Sta rt: October 28, 2024 End: October 28, 2024 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 [place] [address] [place] [id number] PCP - General Internal Medicine 10/26/23 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 Start [place] [address] [place] [id number] PCP - General Internal Medicine 10/26/23 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 Start Date End Date Eleazar Mayorga DO [address] [place] [address] PCP - General Internal Medicine 10/26/23 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 Start Date End Date Eleazar Mayorga DO [address] [place] [address] PCP - General Internal Medicine 10/26/23 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 Start [place] [address] [place] [id number] PCP - General Internal Medicine 10/26/23 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 Start Date End Date Eleazar Mayorga DO [address] [place] [id number] PCP - General Internal Medicine 10/26/23 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 Start [place] [address] [place] [id number] PCP - General Internal Medicine 04/09/24 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 Start [place] [address] [place] [id number] PCP - General Internal Medicine 05/27/24 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 Start Date End Date Eleazar Mayorga DO [address] [place] [address] PCP - General Internal Medicine 05/27/24 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 Start [place] [address] [place] [id number] PCP - General Internal Medicine 05/27/24 Goals (unrecognized section and content) Goals may [...] juice, pudding 1733 (Given - Provider: Tori Nrowood RN)2104 (Given - Provider: Richelle Mehta RN) 0937 (Given - Provider: Lilliana Porter RN)1603 (Given - Provider: Lilliana Porter RN)2213 (Given [...] 2104 (Given - Provider: Richelle Mehta RN) 2212 (Given - Provider: Richelle Mehta RN) 2100 [...] Lilliana Porter RN)1603 (Given - Provider: Lilliana Porter, SMOOTH)2211 (Given - Provider: Richelle Mehta RN) 0700 (Due)1100 (Due)1600 (Due)2100 (Due) magnesium oxide (Mag-Ox) tablet 400 mg 400 mg, oral, Daily, First dose on Fri10/04/24 at 1600 1733 (Given - Provider: Tori Norwood RN) 0937 (Given - Provider: Lilliana Porter RN) 0900 (Due) metoprolol succinate XL (Toprol-XL) 24 hr tablet 50 mg 50 mg, oral, Daily, First dose on 10/04/24 at 1600, Hold for systolic less than [...] (Due: Medication Removed - Provider: Lilliana Porter RN)0900 (Due) nicotine (Nicoderm CQ) 7 mg/24 hr [...] 0938 (Given - Provider: Lilliana Porter RN) 09 (Due) sodium phosphates (Fleets) 19-7 gram/118 mL [...] 0938 (Given - Provider: Lilliana Porter RN) 09 (Due) ticagrelor (Brilinta) tablet 90 mg 90 mg, oral, 2 times daily, First dose (after last modification) on Fri10/05/24 at 0900 1533 (Held by provider - Provider: ALYSON Jaime - Reason: Other - Comment: Gross hematuria)1538 (Unheld by provider - Provider: ALYSON Jaime) 0938 (Given - Provider: Lilliana Porter RN)221 (Given - Provider: Richelle Mehta RN) 09 (Due)2100 (Due) traZODone (Desyrel) tablet 25 mg 25 mg, oral, Nightly, First dose on Fri10/04/24 at 2100 2104 (Given - Provider: Richelle Mehta RN) 221 (Given - Provider: Richelle Mehta RN) 2100 (Due) Continuous Medication Order 10/04/2024 10/05/2024 10/06/2024 glycine 1.5 % irrigation solution 3,000 mL 3,000 mL, irrigation, Continuous, Starting on Fri10/02/24 at 1800, Bladder irrigation PRN Medication Order 10/04/2024 10/05/2024 10/06/2024 acetaminophen (Tylenol) tablet 650 mg 650 mg, oral, Every 6 hours PRN, pain mild (1-3), first line, pain moderate (4-6), first line, headaches, Starting on Fri10/02/24 at 0607, If ordered PRN for pain, [...] on 11/27/24 at 0900, For 14 days Scheduled Medication Order 04/08/2024 04/09/2024 04/10/2024 aspirin EC tablet 81 mg (COMPLETED) 81 mg, oral, Once, On Fri04/09/24 at 0855, For 1 dose, Do not crush or chew. 1011 (Given - Provider: Loren Middleton RN) aspirin EC tablet 81 mg 81 mg, oral, Daily, First dose on Fri04/10/24 at 0900, Do not crush or chew. 27 (Given - Provid er: Tomeka Lvei RN) atorvastatin (LIPITOR) tablet 40 mg 40 mg, oral, Nightly, First dose on Fri04/09/24 at 2200, Look-alike/sound-alike medication - verify indication for use. 2050 (Given - Provider: Nery Hoff RN)2199 (Canceled Entry - Provider: Nery Hoff RN) 2199 (Due) clopidogreL (PLAVIX) tablet 300 mg (COMPLETED) 300 mg, oral, Once, On Fri04/09/24 at 0855, For 1 dose, Look-alike/sound-alike medication - verify indication for use. 1011 (Given - Provider: Loren Middleton RN) clopidogreL (PLAVIX) tablet 75 mg 75 mg, oral, Daily, First dose on Fri04/10/24 at 0900, Look-alike/sound-alike medication - verify indication for use. 0933 (Given - Provid er: Tomeka Levi, SMOOTH) enoxaparin (LOVENOX) syringe 40 mg 40 mg, subcutaneous, Daily, First dose on Fri04/10/24 at 0600, When Creatinine Clearance 30 mL/min or greater Look-alike/sound-alike medication - verify indication for use. 0534 (Given - Provid er: Ivy Clark RN) insulin glargine (LANTUS, SEMGLEE) injection pen 15 Units 15 Units, subcutaneous, 2 times daily, First dose on Fri04/09/24 at 2100, Look-alike/sound-alike medication - verify indication for use. Prime with 2 units of insulin prior to administration. Basal (long acting) insulin for subcutaneous administration only. Do not mix with any other insulin. Pre-filled pens stable 28 days at room temperature. 2100 (Given - Provider: Iyv Clark RN) 0926 (Given - Provider: Tomeka Levi RN)2100 (Due) ondansetron (PF) (ZOFRAN) injection 4 mg (COMPLETED) 4 mg, intravenous, Once, On Fri04/09/24 at 0830, For 1 dose, Administer over 2-5 minutes. 0830 (Given - Provider: Loren Middleton RN) ondansetron (PF) (ZOFRAN) injection 4 mg (COMPLETED) 4 mg, intravenous, Once, On Fri04/09/24 at 1325, For 1 dose, Administer over 2-5 minutes. 1330 (Given - Provider: Loren Middleton RN) sodium chloride 0.9 % bolus (COMPLETED) 500 mL, intravenous, at 968 mL/hr, Administer over 31 Minutes, Once, On Fri04/09/24 at 0830, For 1 dose 1025 (New Bag - Provider: Loren Middleton RN)1046 (Paused - Provider: Loren Middleton RN)1104 (Restarted - Provider: Loren Middleton RN)1124 (Stop Bag - Provider: Loren Middleton RN) sodium chloride 0.9 % bolus (COMPLETED) 500 mL, intravenous, at 968 mL/hr, Administer over 31 Minutes, Once, On Fri04/09/24 at 1005, For 1 dose 1124 (New Bag - Provider: Loren Middleton RN)1125 (Stop Bag - Provider: Loren Middleton RN)1132 (Paused - Provider: Loren Chambers, SMOOTH)1136 (Restarted - Provider: Loren Chambers, RN)1137 (Paused - Provider: Loren Chambers, RN)1147 (Restarted - Provider: Loren Chambers RN) sodium chloride 0.9 % bolus (COMPLETED) 500 mL, intravenous, at 500 mL/hr, Administer over 1 Hours, Once, On 04/10/24 at 1215, For 1 dose 1244 (New Bag - Provider: Tomeka Levi, SMOOTH)1328 (Stop Bag - Provider: Tomeka Levi, SMOOTH)1344 (Stop Bag - Provider: Tomeka Levi, SMOOTH) sodium chloride 0.9 % bolus 500 mL, intravenous, at 968 mL/hr, Administer over 31 Minutes, Once, On 04/10/24 at 1645, For 1 dose 1645 (Due) Continuous Medication Order 04/08/2024 04/09/2024 04/10/2024 sodium chloride 0.9 % infusion 75 mL/hr, intravenous, Continuous, Starting on Fri04/09/24 at 0805 1640 (New Bag - Provider: Loren Chambers, SMOOTH)1653 (Paused - Provider: Loren Chambers RN)1656 (Restarted - Provider: Loren Chambers RN)1657 (Stop Bag - Provider: Loren Chambers RN)1702 (Stop Bag - Provider: Loren Chambers, SMOOTH) 1245 (Restarted - Provider: Tomeka Levi, SMOOTH)1328 (Paused - Provider: Tomeka Levi, SMOOTH)1411 (Restarted - Provider: Tomeka Levi, SMOOTH)1603 (Stop Bag - Provider: Tomeka Levi, SMOOTH) PRN Medication Order 04/08/2024 04/09/2024 04/10/2024 acetaminophen (TYLENOL) tablet 650 mg 650 mg, oral, Every 4 hours PRN, mild pain - pain scale 1-3, headaches, Temperature greater than 38.3 C, Starting on Fri04/09/24 at 1348, [Warning: Total Acetaminophen not to exceed more than 4 grams (4000 mg) in 24 hours] 2050 (Given - Provider: Nery Hoff RN) 1249 (Given - Provider: Tomeka Levi, SMOOTH) alum-mag hydroxide-simeth (MAALOX) 200-200-20 mg/5 mL suspension 30 mL 30 mL, oral, 4 times daily after meals and at bedtime as needed, dyspepsia, Starting on Fri04/09/24 at 1348, Look-alike/sound-alike medication - verify indication for use. Carlos briggs, Indications: dyspepsia 2050 (Given - Provider: Nery Hoff RN) calcium gluconate 3,000 mg in sodium chloride 0.9 % 100 mL IVPB 3,000 mg, intravenous, at 43.3 mL/hr, Administer over 3 Hours, As needed, ionized calcium 3.5 to 3.9 mg/dL, Starting on Fri04/09/24 at 1348, IV Administration of calcium via a central or deep vein preferred. Avoid administration in small hand veins VESICANT (RED) calcium gluconate 4,000 mg in sodium chloride 0.9 % 250 mL IVPB 4,000 mg, intravenous, at 72.5 mL/hr, Administer over 4 Hours, As needed, ionized calcium 3.4 mg/dL or less, Starting on Fri04/09/24 at 1348, IV administration of calcium via a central or deep vein is preferred. Avoid administration in small hand veins. VESICANT (RED) calcium gluconate IVPB 2000 mg/100 mL (20 mg/mL premix) 2,000 mg, intravenous, at 50 mL/hr, Administer over 2 Hours, As needed, ionized calcium 4 to 4.3 mg/dL, Starting on Fri04/09/24 at 1348, IV Administration of calcium via a central or deep vein preferred. Avoid administration in small hand veins VESICANT (RED) dextrose (GLUTOSE) 40 % gel 15 g 15 g, oral, As needed, low blood sugar, blood glucose less than 70 mg/dL, Starting on Fri04/09/24 at 1348, If patient conscious and taking PO. If blood glucose is not greater than 70 mg/dL after initial treatment, repeat treatment. dextrose 5 % (D5W) infusion 100 mL/hr, intravenous, Continuous PRN, blood glucose less than 70 mg/dL, Starting on Fri04/09/24 at 1348, Use immediately following dextrose 50% or glucagon treatment for patients who are unconscious or NPO. Contact prescriber for additional orders. If blood glucose is not greater than 70 mg/dL after initial treatment, repeat treatment. dextrose 50 % in water (D50W) 50% solution 25 mL 25 mL, intravenous, As needed, low blood sugar, blood glucose less than 70 mg/dL and unconscious or NPO with IV access, Starting on Fri04/09/24 at 1348, Push over 1-3 minutes STAT. If conscious and not NPO, immediately follow with meal tray or high protein (7 grams) snack if tray not available. If NPO, initiate 5% dextrose in water at 100 mL/hr and contact prescriber for additional orders. If blood glucose is not greater than 70 mg/dL after initial treatment, repeat treatment. VESICANT (RED) Warning: HYPERTONIC solution. glucagon HCL injection 1 mg 1 mg, intramuscular, As needed, low blood sugar, blood glucose less than 70 mg/dL and unconscious or NPO without IV access., Starting on Fri04/09/24 at 1348, If conscious and not NPO, immediately follow with meal tray or high protein (7Grams) snack if tray not available. If NPO, initiate IV 5% Dextrose/Water at 100 mL/hr and contact prescriber for additional orders. If blood glucose is not greater than 70 mg/dL after initial treatment, repeat treatment. HYDROcodone-acetaminophen (NORCO) 5-325 mg per tablet 1 tablet 1 tablet, oral, Every 4 hours PRN, moderate pain - pain scale 4-6, Starting on 04/10/24 at 0033, Look-alike/sound-alike medication - verify indication for use. 0054 (Given - Provid er: Nery Hoff RN) iohexoL (OMNIPAQUE) 350 mg iodine/mL injection 100 mL (COMPLETED) 100 mL, intravenous, Once in imaging, contrast, Starting on Fri04/09/24 at 0826, For 1 dose, VESICANT (RED) 0827 (Given - Provider: Saul Porter - Comment: lot [id number], exp 01/27/27) iohexoL (OMNIPAQUE) 350 mg iodine/mL injection 100 mL (COMPLETED) 100 mL, intravenous, Once in imaging, contrast, Starting on 04/10/24 at 1333, For 1 dose, VESICANT (RED) 1415 (Given - Provid er: KRISHAN Posey - Comment: [id number]) magnesium sulfate IVPB 2000 mg/50 mL in iso-osmotic water (40 mg/mL premix) 2,000 mg, intravenous, at 25 mL/hr, Administer over 120 Minutes, As needed, Magnesium level 1.7 to 1.9 mg/dL, or Ionized Magnesium level 0.45 to 0.5 mmol/L., Starting on Fri04/09/24 at 1348, Recheck magnesium level 4 hours after infusion complete. With each magnesium result continue the replacement orders as needed. magnesium sulfate IVPB 4000 mg/100 mL in iso-osmotic water (40 mg/mL premix) 4,000 mg, intravenous, at 25 mL/hr, Administer over 240 Minutes, As needed, Magnesium level 1.6 mg/dL or less, or Ionized Magnesium level 0.44 mmol/L or less, Starting on Fri04/09/24 at 1348, Recheck magnesium level 4 hours after infusion complete. With each magnesium result continue the replacement orders as needed. ondansetron (PF) (ZOFRAN) injection 4 mg 4 mg, intravenous, Every 4 hours PRN, nausea, vomiting, Starting on Fri04/09/24 at 1348, Administer over 2-5 minutes. 1936 (Given - Provider: Ivy Clark, RN) 1323 (Given - Provider: Fouzia Bautista, SMOOTH) potassium chloride (K-TAB,KLOR-CON) CR tablet 30-50 mEq(Linked Group 1) 30-50 mEq, oral, As needed, potassium supplementation, Starting on Fri04/09/24 at 1348, Progress to oral potassium replacement when patient tolerating oral intake. If dose administered, recheck potassium level 4 hours after last dose. For potassium level 3.4 to 3.8 mmol/L and GFR 30 mL/min or greater=30 mEq. For potassium level 3.1 to 3.3 mmol/L and GFR 30 mL/min or greater=40 mEq. For potassium level 3 mmol/L or less and GFR 30 mL/min or greater=50 mEq. Do not crush or chew. potassium chloride (KAYCIEL) 20 mEq/15 mL solution 30-50 mEq(Linked Group 1) 30-50 mEq, oral, As needed, potassium supplementation, Starting on Fri04/09/24 at 1348, Progress to oral potassium replacement when patient tolerating oral intake. If dose administered, recheck potassium level 4 hours after last dose. For potassium level 3.4 to 3.8 mmol/L and GFR 30 mL/min or greater=30 mEq. For potassium level 3.1 to 3.3 mmol/L and GFR 30 mL/min or greater=40 mEq. For potassium level 3 mmol/L or less and GFR 30 mL/min or greater=50 mEq. Must dilute before use - Mix in 3-8 ounces of water or juice before administration When administering in feeding tube, flush before and after per policy and monitor potassium levels sennosides-docusate sodium (SENOKOT-S) 8.6-50 mg 1 tablet 1 tablet, oral, Every 12 hours PRN, constipation, Starting on Fri04/09/24 at 1348 sod phos di, mono-K phos mono (K-PHOS NEUTRAL) 250 mg tablet 2 tablet(Linked Group 2) 2 tablet, oral, As needed, for phosphorus level 2.3 mg/dL or less., Starting on Fri04/09/24 at 1348, If dose administered, recheck phosphorus level 4 hours after last dose. Look-alike/sound-alike medication - verify indication for use. Give with a full glass of water. sodium chloride 0.9 % flush 10 mL 10 mL, intravenous, As needed, line care, Starting on Fri04/09/24 at 0826 0827 (Given - Provider: Saul Porter) sodium chloride 0.9 % flush 10 mL 10 mL, intravenous, As needed, line care, Starting on Fri04/10/24 at 1333 1352 (Given - Provid er: KRISHAN Posey) sodium chloride 0.9 % flush bag 25 mL, intravenous, at 100 mL/hr, Administer over 15 Minutes, As needed, line care, line care after IVPB administration, Starting on Fri04/09/24 at 1348 sodium chloride 0.9 % infusion 20 mL/hr, intravenous, Continuous PRN, to maintain patency of lines, Starting on Fri04/09/24 at 1348 sodium chloride 0.9 % radiology injection (COMPLETED) 80 mL, intravenous, Once in imaging, pre/post contrast, Starting on Fri04/09/24 at 0826, For 1 dose 0827 (Given - Provider: Saul Porter) sodium chloride 0.9 % radiology injection (COMPLETED) 80 mL, intravenous, Once in imaging, pre/post contrast, Starting on Fri04/10/24 at 1333, For 1 dose 1414 (Given - Provid er: KRISHAN Posey) sodium phosphate 20 mmol in sodium chloride 0.9 % 100 mL IVPB(Linked Group 2) 20 mmol, intravenous, at 26.7 mL/hr, Administer over 4 Hours, As needed, for phosphorus level 2.3 mg/dL or less., Starting on Fri04/09/24 at 1348, Administer over 4 hours via dedicated line (central line). If administered, recheck phosphorus level 4 hours after infusion complete. Infuse using central line access. sodium phosphate 20 mmol in sodium chloride 0.9 % 250 mL IVPB(Linked Group 2) 20 mmol, intravenous, at 42.8 mL/hr, Administer over 6 Hours, As needed, for phosphorus level 2.3 mg/dL or less, Starting on Fri04/09/24 at 1348, Administer over 6 hours via dedicated line (peripheral line). If administered, recheck phosphorus level 4 hours after infusion complete. Linked Groups Order Group 1: potassium chloride (K-TAB,KLOR-CON) CR tablet 30-50 mEqJump to med 30-50 mEq, oral, As needed, potassium supplementation, Starting on Fri04/09/24 at 1348, Progress to oral potassium replacement when patient tolerating oral intake. If dose administered, recheck potassium level 4 hours after last dose. For potassium level 3.4 to 3.8 mmol/L and GFR 30 mL/min or greater=30 mEq. For potassium level 3.1 to 3.3 mmol/L and GFR 30 mL/min or greater=40 mEq. For potassium level 3 mmol/L or less and GFR 30 mL/min or greater=50 mEq. Do not crush or chew. Or potassium chloride (KAYCIEL) 20 mEq/15 mL solution 30-50 mEqJump to med 30-50 mEq, oral, As needed, potassium supplementation, Starting on Fri04/09/24 at 1348, Progress to oral potassium replacement when patient tolerating oral intake. If dose administered, recheck potassium level 4 hours after last dose. For potassium level 3.4 to 3.8 mmol/L and GFR 30 mL/min or greater=30 mEq. For potassium level 3.1 to 3.3 mmol/L and GFR 30 mL/min or greater=40 mEq. For potassium level 3 mmol/L or less and GFR 30 mL/min or greater=50 mEq. Must dilute before use - Mix in 3-8 ounces of water or juice before administration When administering in feeding tube, flush before and after per policy and monitor potassium levels Group 2: sodium phosphate 20 mmol in sodium chloride 0.9 % 250 mL IVPBJump to med 20 mmol, intravenous, at 42.8 mL/hr, Administer over 6 Hours, As needed, for phosphorus level 2.3 mg/dL or less, Starting on Fri04/09/24 at 1348, Administer over 6 hours via dedicated line (peripheral line). If administered, recheck phosphorus level 4 hours after infusion complete. Or sodium phosphate 20 mmol in sodium chloride 0.9 % 100 mL IVPBJump to med 20 mmol, intravenous, at 26.7 mL/hr, Administer over 4 Hours, As needed, for phosphorus level 2.3 mg/dL or less., Starting on Fri04/09/24 at 1348, Administer over 4 hours via dedicated line (central line). If administered, recheck phosphorus level 4 hours after infusion complete. Infuse using central line access. Or sod phos di, mono-K phos mono (K-PHOS NEUTRAL) 250 mg tablet 2 tabletJump to med 2 tablet, oral, As needed, for phosphorus level 2.3 mg/dL or less., Starting on Fri04/09/24 at 1348, If dose administered, recheck phosphorus level 4 hours after last dose. Look-alike/sound-alike medication - verify indication for use. Give with a full glass of water. Source Comments (unrecognize d section and content) In the event this informatio n is protected by the Federal Confidentiality of Alcohol and Drug Abuse Patient Records regulations: The Federal rules restrict any use of the information to criminally investigate or prosecute any alcohol or drug abuse patient.[facility] FOR RECORDS PERTAINING TO PATIENTS WHO ARE [...] BE BASED ON THE PRIMARY CLINICAL RECORDS. [facility], [facility]. provides no warranty or guarantee of the accuracy or completeness of information in this document.
[2025-06-12 22:32] LABS: Hematocrit 35.7 % (42.0-54.0); Hemoglobin 11.6 g/dL (14.0-18.0); Immature Granulocytes Abs Auto 0.01 10^3/uL (0.00-0.03); Immature Granulocytes Pct Auto 0.2 % (0.0-0.5); Lymphocytes Absolute Auto 1.6 10^3/uL (1.2-3.8); Mean Corpuscular HGB Conc 32.5 g/dL (29.9-35.2); Mean Corpuscular Hemoglobin 26.2 pg (25.9-34.0); Mean Corpuscular Volume 80.8 fL (80.0-94.0); Platelet Count 271 10^3/uL (150-450); Red Blood Count 4.42 10^6/uL (4.70-6.10); White Blood Count 4.3 10^3/uL (4.0-11.0)
[2025-06-12 22:44] LABS: Anion Gap 4.4; Blood Urea Nitrogen 20.0 mg/dL (7.0-18.0); Calcium 8.8 mg/dL (8.5-10.1); Carbon Dioxide 33.7 mmol/L (21.0-32.0); Chloride 103 mmol/L (98-107); Estimated GFR (African America >60 (>=60 mL/min/1.73m^2); Estimated GFR (Non-African Ame >60 (>=60 mL/min/1.73m^2); Glucose 225 mg/dL (74-106); Potassium 4.1 mmol/L (3.5-5.1); Sodium 137 mmol/L (136-145)
[2025-06-13 00:26] VITALS: O2SAT 93
[2025-06-13 00:27] VITALS: BP 131/62; O2SAT 91
[2025-06-13 00:30] VITALS: O2SAT 96
[2025-06-13 00:33] VITALS: PULSE 48
== END 2025-06-13 00:39 | disposition home or self-care (01) ==
PROVIDERS: Emergency Provider Emergency Medicine; PCP Internal Medicine
DX: R07.89 Other chest pain (principal); E11.9 Type 2 diabetes mellitus without complications
CPT/HCPCS: 36415; 71045; 80048; 84484; 85025; 93005; 99285

== ENCOUNTER 2025-07-10 18:43 | Emergency (ER) | payer MEDICARE, MEDICAID, SELFPAY ==
--- OUTSIDE RECORDS SUMMARY | 2024-03-31 13:00 | XMS_ITS ---
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 Phone Lashay Rayo Unavailable [phone] REASON FOR VISIT Left knee cellulitis Problems Problem Type SNOMED Code ICD Code Onset Dates Problem Status W/U Status Risk Notes Problem [id number] Left leg cellulitis (L03.116) Active confirmed Problem [id number] Effusion, left knee (M25.462) Active confirmed Problem 522144096332348 Primary osteoarthritis of left knee (M17.12) Active confirmed Problem Fall, initial encounter (W19.XXXA) Active confirmed Encounters Encounter Location Date Provider Diagnosis [facility] [address] [place] [address] 03/31/2024 Lashay Rayo Left leg cellulitis L03.116 ; Effusion, left knee M25.462 ; Primary osteoarthritis of left knee M17.12 and Fall, initial encounter W19.XXXA Assessments Encounter Date Diagnosis (ICD Code) Assessment Notes Treatment Notes Treatment Clinical Notes Section Notes 03/31/2024 Left leg cellulitis (ICD-10 - L03.116) 03/31/2024 Effusion, left knee (ICD-10 - M25.462) 03/31/2024 Primary osteoarthritis of left knee (ICD-10 - M17.12) 03/31/2024 Fall, initial encounter (ICD-10 - W19.XXXA) Plan Of Treatment No Information Progress Notes * VASHTI MASSEY WDOB:[birth year] (69 yo M)Acc No.[id number]:03/31/2024 Progress Notes Patient: VASHTI YAO Provider: MARIBELL Loera :1955 A ge:68 Y S ex:Male Date:03/31/2024 Address:[employer] [address] [facility] [id number] Subjective: * Chief Complaints: * 1 . Left knee cellulitis. * Medical History: * Medications: N one Objective: * Vitals: Assessment: * Assessment: 1. L eft leg cellulitis - L03.116 (Primary) 2 . E ffusion, left knee - M25.462 3 . P rimary osteoarthritis of left knee - M17.12 4 . F all, initial encounter - W19.XXXA Plan: * Treatment: * Procedure Codes: 9 9232 HOSP SUB CARE-MOD CPLX Forms: * Images: * Electronic signature of Kai Raoy PA-C on 07/10/2025 at 06:53 PM EDT Sign off status: Pending * Provider: MARIBELL Loera Date: 0 03/31/2024 Generated for Woodrow whitfield/Massiel/Renettaitting on: 0 07/10/2025 06:53 PM EDT
--- OUTSIDE RECORDS SUMMARY | 2024-04-12 05:00 | XMS_ITS ---
Author Organization [facility] Address [address] [place] [address] Care Team Providers Care Operations Planner Name Role Phone Eduar Hsu Unavailable [phone] REASON FOR VISIT LEFT KNEE PAIN Encounters Encounter Location Date Provider Diagnosis [facility] [address] [facility] [place] [address] [place] [address] 04/12/2024 Eduar Hsu Plan Of Treatment No Information Progress Notes * VASHTI MASSEY WDOB:[birth year] (69 yo M)Acc No.[id number]:04/12/2024 Patient: Ministerio SHAHLASATYAVASHTI GARRETT Provider: Ronnie Hsu MD :1955 A ge:68 Y S ex:Male Date:04/12/2024 Address:[address] [place], [place] [id number] Subjective: * Chief Complaints: * 1 . LEFT KNEE PAIN. * Medical History: Objective: * Vitals: Assessment: Plan: * Treatment: Forms: * Images: * Electronic signature of Lambert Hsu MD on 07/10/2025 at 06:52 PM EDT Sign off status: Pending * Provider: Ronnie Hsu MD Date: 0 04/12/2024 Generated for Steffii ng/Massiel/eTransmitting on: 07/10/2025 06:52 PM EDT
--- OUTSIDE RECORDS SUMMARY | 2024-08-18 09:30 | XMS_ITS ---
Author Organization [facility] Address [address] [place] [address] [place] [address] Care Team Providers Care Statement Processor Name Role Phone Greg TOWNSEND, Vinnie Primary Care Provider Aamir Samson Unavailable [phone] Encounters Encounter Location Date Provider Diagnosis [address] [address] 08/18/2024 Aamir Cedillo Plan Of Treatment No Information Progress Notes * Cesar MASSEY WDOB:[birth year] (69 yo M)Acc No.[id number]:08/18/2024 Patient: Cesar YAO Provider: Jhonny Cedillo DPM :1955 A ge:69 Y S ex:Male Date:08/18/2024 Address:[facility] Pcp:Vinnie Garza MD Subjective: * Chief Complaints: * * Medical History: Objective: * Vitals: Assessment: Plan: * Treatment: * Images: * Electronic signature of Gary in [place] Cedillo on 07/10/2025 at 06:52 PM EDT Sign off status: Pending * Provider: Jhonny Cedillo DPM Date: Generated for Woodrow whitfield/Massiel/Lima on: 07/10/2025 06:52 PM EDT
--- OUTSIDE RECORDS SUMMARY | 2024-11-24 11:00 | XMS_ITS ---
Author Organization [facility] Address [address] [place] [address] [place] [address] Care Team Providers Care Paint Stock Clerk Name Role Phone Greg TOWNSEND, Vinnie Primary Care Provider Aamir Samson Unavailable [phone] Encounters Encounter Location Date Provider Diagnosis [address] [address] 11/24/2024 Aamir Cedillo Plan Of Treatment No Information Progress Notes * Cesar MASSEY WDOB:[birth year] (69 yo M)Acc No.[id number]:11/24/2024 Patient: Cesar YAO Provider: Jhonny Cedillo DPM :1955 A ge:69 Y S ex:Male Date:11/24/2024 Address:[facility] Pcp:Vinnie Garza MD Subjective: * Chief Complaints: * * Medical History: Objective: * Vitals: Assessment: Plan: * Treatment: * Images: * Electronic signature of [place] in [place]ONTE Cedillo on 07/10/2025 at 06:51 PM EDT Sign off status: Pending * Provider: Jhonny Cedillo DPM Date: 11/24/2024 Generated for Woodrow whitfield/Massiel/Lima on: 0 07/10/2025 06:51 PM EDT
--- OUTSIDE RECORDS SUMMARY | 2025-02-16 11:15 | XMS_ITS ---
Author Organization [facility] Address [address] [place] [address] [place] [address] Care Team Providers Care Service Station Equipment Mechanic Name Role Phone Greg TOWNSEND, Vinnie Primary Care Provider Aamir Samson Unavailable [phone] Encounters Encounter Location Date Provider Diagnosis [address] [address] 02/16/2025 Aamir Cedillo Plan Of Treatment No Information Progress Notes * Cesar MASSEY WDOB:[birth year] (69 yo M)Acc No.[id number]:02/16/2025 Patient: Cesar YAO Provider: Jhonny Cedillo DPM :1955 A ge:69 Y S ex:Male Date:02/16/2025 Address:[facility] Pcp:Vinnie Garza MD Subjective: * Chief Complaints: * * Medical History: Objective: * Vitals: Assessment: Plan: * Treatment: * Images: * Electronic signature of Callaway in DELONTE Cedillo on 07/10/2025 at 06:51 PM EDT Sign off status: Pending * Provider: Jhonny Cedillo DPM Date: 02/16/2025 Generated for Woodrow whitfield/Massiel/Lima on: 07/10/2025 06:51 PM EDT
--- OUTSIDE RECORDS SUMMARY | 2025-05-18 09:45 | XMS_ITS ---
Author Organization [facility] Address [address] [place] [address] [place] [address] Care Team Providers Care Machine Whitener Name Role Phone Greg TOWNSEND, Vinnie Primary Care Provider Aamir Samson Unavailable [phone] Encounters Encounter Location Date Provider Diagnosis [address] [address] 05/18/2025 Aamir Cedillo Plan Of Treatment No Information Progress Notes * Cesar MASSEY WDOB:[birth year] (69 yo M)Acc No.[id number]:05/18/2025 Patient: Cesar YAO Provider: Jhonny Cedillo DPM :1955 A ge:69 Y S ex:Male Date:05/18/2025 Address:[facility] Pcp:Vinnie Garza MD Subjective: * Chief Complaints: * * Medical History: Objective: * Vitals: Assessment: Plan: * Treatment: * Images: * Electronic signature of Hanna in DELONTE Cedillo on 07/10/2025 at 06:51 PM EDT Sign off status: Pending * Provider: Jhonny Cedillo DPM Date: 05/18/2025 Generated for Woodrow [place]/Massiel/Lima on: 07/10/2025 06:51 PM EDT
--- OUTSIDE RECORDS SUMMARY | 2025-07-10 18:51 | XMS_ITS | Continuity of Care Document ---
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 Name Role Phone Vinnie Garza DO Attending Physician Medications Medication Frequency Instructions Diagnosis Start Date End Date Last Administered acetaminophen 500 mg tablet Every 8 Hours - PRN 2 tabs, oral, Every 8 Hours - PRN, as needed for pain 07/06/2025 01:28 PM Admelog SoloStar U-100 Insulin (insulin lispro) 100 unit/mL insulin pen Before Meals and At Bedtime Per Sliding Scale, subcutaneous, Before Meals and At Bedtime, If Blood Sugar is 151 to 200, give 3 Units.If Blood Sugar is 201 to 250, give 5 Units.If Blood Sugar is 251 to 300, give 7 Units.If Blood Sugar is 301 to 350, give 9 Units.If Blood Sugar is 351 to 400, give 11 Units.If Blood Sugar is 401 to 450, give 13 Units. 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 clotrimazole-be tamethasone 1-0.05 % cream Twice A Day - PRN one application, topical, Twice A Day - PRN Dulcolax (bisacodyl) (bisacodyl) 10 mg suppository Once A Day - PRN 10 mg, rectal, Once A Day - PRN K59.00 : Constipation, unspecified 05/10/2025 05:22 PM Ferrex 150 (polysaccharide iron complex) 150 mg iron capsule Once A Day one capsule, oral, Once A Day D64.9 : Anemia, unspecified 07/08/2025 09:29 AM finasteride 5 mg tablet Once A Day 5 mg, oral, Once A Day N40.1 : Benign prostatic hyperplasia with lower urinary tract symptoms 07/08/2025 09:29 AM folic acid 1 mg tablet Once A Day 1 mg, oral, Once A Day D64.9 : Anemia, unspecified 07/08/2025 09:29 AM gabapentin 100 mg capsule Three Times A Day 100 mg, oral, Three Times A Day 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 07/08/2025 10:38 PM insulin glargine-yfgn 100 unit/mL (3 mL) insulin pen At Bedtime 15 units, subcutaneous, At Bedtime 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 07/08/2025 10:38 PM Keppra (levetiracetam) 500 mg tablet Twice A Day 500 mg, oral, Twice A Day 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4 gram powder Once A Day 3.4 grams, oral, Once A Day K59.00 : Constipation, unspecified 07/08/2025 06:37 AM metoprolol succinate 50 mg tablet extended release 24 hr Once A Day 50 mg, oral, Once A Day I47.20 : Ventricular tachycardia, unspecified 07/08/2025 09:29 AM Miralax (polyethylene glycol 3350) 17 gram/dose powder Once A Day 17 grams, oral, Once A Day K59.00 : Constipation, unspecified 07/08/2025 06:37 AM omeprazole 20 mg capsule,delayed release(DR/EC) Once A Day 1 capsule, oral, Once A Day K21.9 : Gastro-esophageal reflux disease without esophagitis 07/08/2025 06:37 AM Remeron (mirtazapine) 15 mg tablet At Bedtime 1 tab, oral, At Bedtime F33.9 : Major depressive disorder, recurrent, unspecified 07/08/2025 10:38 PM tamsulosin 0.4 mg capsule At Bedtime 0.4 mg, oral, At Bedtime N40.1 : Benign prostatic hyperplasia with lower urinary tract symptoms 07/08/2025 10:38 PM Bactrim DS (sulfamethoxazo le-trimethoprim ) 800-160 mg tablet Twice A Day 1, oral, Twice A Day N39.0 : Urinary tract infection, site not specified 202406/30/2025 10:38 PM nitroglycerin 0.4 mg tablet, sublingual Once - One Time 0.4 mg, sublingual, Once - One Time, Give once then obtain VS and call PANEL SAW OPERATOR. 025 202406/13/2025 02:44 AM Problems Code Type Problem ICD Code Effective Date Status ICD-10 Cerebral infarction, unspecified I63.9 07/2024 Active ICD-10 Infection and inflam matory reaction due to indwelling urethral catheter, subsequent encounter T83.511D 04/28/2025 Active ICD-10 Urinary tract infection, site not specified N39 .0 04/28/2025 Active ICD-10 Other generalized ep ilepsy and epileptic syndromes, not intractable, without status epilepticus G40.409 04/28/2025 Active ICD-10 Hemiplegia and hemip aresis following cerebral infarction affecting left non-dominant side I69.354 06/01/2024 Active ICD-10 Dysphagia following unspecified cerebrovascular disease I69.991 05/28/2024 Active ICD-10 Type 2 diabetes lora itus with diabetic cataract E11.36 05/28/2024 Active ICD-10 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 I63.511 05/28/2024 Active ICD-10 Unspecified sequelae of cerebral infarction I69 .30 05/28/2024 Active ICD-10 Anemia, unspecified D64.9 05/28/2024 Activ e ICD-10 Obstructive and reflux uropathy, unspecified N1 3.9 06/04/2024 Active ICD-10 Benign prostatic hyp erplasia with lower urinary tract symptoms N40.1 06/04/2024 Active ICD-10 Other visual disturbances H53.8 05/28/2024 Active ICD-10 Chronic kidney disease, stage 3a N18.31 11/2023 Active ICD-10 Pure hyperglyceridemia E78.1 05/28/2024 Ac tive ICD-10 Unsteadiness on feet R26.81 05/28/2024 Acti ve ICD-10 Altered mental status, unspecified R41.82 0 05/28/2024 Active ICD-10 Weakness R53.1 05/28/2024 Active ICD-10 Personal history of transient ischemic attack (TIA), and cerebral infarction without residual deficits Z86.73 05/28/2024 Active ICD-10 Unilateral primary o steoarthritis, right knee M17.11 05/28/2024 Active ICD-10 Primary insomnia F51.01 06/01/2024 Active ICD-10 Major depressive dis order, recurrent, unspecified F33.9 06/01/2024 Active ICD-10 Gastro-esophageal re flux disease without esophagitis K21.9 06/01/2024 Active ICD-10 Anxiety disorder, unspecified F41.9 2023 Active ICD-10 Retention of urine, unspecified R33.9 04/2024 Active ICD-10 Nontraumatic subarac hnoid hemorrhage, unspecified I60.9 06/05/2024 Active ICD-10 Muscle weakness (generalized) M62.81 2023 Active ICD-10 Age-related nuclear cataract, bilateral H25.13 06/01/2024 Active ICD-10 Difficulty in walkin g, not elsewhere classified R26.2 06/02/2024 Active ICD-10 Cognitive communication deficit R41.841 11/2023 Active ICD-10 Traumatic cerebral e corinne with loss of consciousness status unknown, subsequent encounter S06.1XAD 06/05/2024 Active ICD-10 Anemia, unspecified D64.9 10/30/2024 Activ e ICD-10 Dysphagia, oropharyngeal phase R13.12 06/10 Active ICD-10 Other hypertrophic cardiomyopathy I42.2 Active ICD-10 Dysphagia following other cerebrovascular disease I69.891 09/26/2024 Active ICD-10 Other symptoms and s igns involving cognitive functions following unspecified cerebrovascular disease I69.918 09/26/2024 Active ICD-10 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 11/15 Active ICD-10 Ventricular tachycardia, unspecified I47.20 06/01/2024 Active ICD-10 Acute kidney failure, unspecified N17.9 Active ICD-10 Constipation, unspecified K59.00 10/13/2024 Active ICD-10 Dysphagia, oral phase R13.11 09/26/2024 Act bety 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 Active ICD-10 Syncope and collapse R55 11/25/2024 Acti ve ICD-10 Nutritional deficiency, unspecified E63.9 05/04/2025 Active ICD-10 Encephalopathy, unspecified G93.40 07/03/20 25 Active 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 A ctive ICD-10 Other seizures G40.89 04/27/2025 Active Current Allergies and Intolerances No known allergies Vital Signs Height: 70.0 in Date / Time Temperature Pulse (per minute) Respirations (per minute) Systolic BP (mmHg) Diastolic BP (mmHg) O2 Saturation (%) Weight BMI 2024 02:19 PM 200.4 lbs 28.7 5 2024 02:40 PM 98.3 F 60 16 148 82 94.0 2024 12:48 PM 98.0 F 2024 10:25 AM 98.0 F 2024 06:19 PM 201.2 lbs 28.8 7 2024 06:16 PM 97.8 F 59 144 72 94.0 2024 07:45 PM 98.4 F 62 132 66 95.0 2024 03:03 PM 196.5 lbs 28.1 9 2024 12:07 PM 198.2 lbs 28.4 4 2024 02:37 PM 194.5 lbs 27.9 2024 11:21 AM 197.2 lbs 28.2 9 2024 10:38 AM 98.2 F 62 16 112 63 98.0 2024 09:40 AM 98.2 F 70 18 116 62 97.0 2024 09:04 AM 98.1 F 62 18 110 60 97.0 2024 01:37 AM 98.2 F 72 18 134 84 95.0 2024 08:32 AM 98.0 F 55 18 133 58 97.0 2024 01:07 PM 192.4 lbs 27.6 2024 08:05 AM 56 18 132 72 96.0 2024 11:56 PM 62 16 119 67 95.0 2024 11:52 PM 16 2024 09:19 AM 16 Advance Directives Directive Note Do Not Resuscitate (DNRCCA) Insurance Providers Payer Policy type Group Name Group number Policy ID Address Phone Medicare A Medicare Part A [id number] P sofie: Fax: Vaccinations - [employer] Like Medicare Part B [id number] 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 Date Status Dose Series Complete COVID-19 Vaccine 01/05/2025 Refused COVID-19 Vaccine 10/01/2024 Refused COVID-19 Vaccine 06/03/2024 Refused Influenza Vaccine sanofi pasteur fluzo ne high dose 08/03/2024 Completed Pneumococcal Vaccine 10/01/2024 Refused Pneumococcal Vaccine 06/03/2024 Refused RSV Vaccine 10/01/2024 Refused RSV Vaccine 06/03/2024 Refused Procedures Not available for this record Results Name Date Time Positive/Negative Value Unit Range Blood Sugar 07/08/2025 10:38 PM 200.0 mg/dL Blood Sugar 07/08/2025 05:12 PM 167.0 mg/dL Blood Sugar 07/08/2025 11:12 AM 209.0 mg/dL Blood Sugar 07/08/2025 06:43 AM 139.0 mg/dL Blood Sugar 07/07/2025 10:19 PM 131.0 mg/dL Blood Sugar 07/07/2025 04:40 PM 166.0 mg/dL Blood Sugar 07/07/2025 11:20 AM 142.0 mg/dL Blood Sugar 07/07/2025 06:43 AM 131.0 mg/dL Blood Sugar 07/06/2025 08:50 PM 210.0 mg/dL Blood Sugar 07/06/2025 04:50 PM 147.0 mg/dL Blood Sugar 07/06/2025 10:08 AM 219.0 mg/dL Blood Sugar 07/06/2025 05:43 AM 126.0 mg/dL Blood Sugar 07/05/2025 10:00 PM 109.0 mg/dL Blood Sugar 07/05/2025 07:07 PM 246.0 mg/dL Blood Sugar 07/05/2025 10:58 AM 148.0 mg/dL Blood Sugar 07/05/2025 06:41 AM 114.0 mg/dL Blood Sugar 07/04/2025 10:22 PM 205.0 mg/dL Blood Sugar 07/04/2025 05:06 PM 148.0 mg/dL Blood Sugar 07/04/2025 10:31 AM 178.0 mg/dL Blood Sugar 07/04/2025 06:40 AM 127.0 mg/dL Blood Sugar 07/03/2025 10:46 PM 131.0 mg/dL Blood Sugar 07/03/2025 04:23 PM 167.0 mg/dL Blood Sugar 07/03/2025 11:42 AM 146.0 mg/dL Blood Sugar 07/03/2025 06:13 AM 144.0 mg/dL Blood Sugar 07/02/2025 11:28 PM 123.0 mg/dL Blood Sugar 07/02/2025 04:24 PM 196.0 mg/dL Blood Sugar 07/02/2025 11:23 AM 114.0 mg/dL Blood Sugar 07/02/2025 04:07 AM 138.0 mg/dL Blood Sugar 07/01/2025 08:25 PM 193.0 mg/dL Blood Sugar 07/01/2025 04:35 PM 160.0 mg/dL Blood Sugar 07/01/2025 10:13 AM 153.0 mg/dL Blood Sugar 07/01/2025 05:47 AM 124.0 mg/dL Blood Sugar 06/30/2025 10:38 PM 198.0 mg/dL Blood Sugar 06/30/2025 05:41 PM 200.0 mg/dL Blood Sugar 06/30/2025 11:06 AM 180.0 mg/dL Blood Sugar 06/30/2025 06:29 AM 124.0 mg/dL Blood Sugar 06/29/2025 08:33 PM 240.0 mg/dL Blood Sugar 06/29/2025 04:20 PM 149.0 mg/dL Blood Sugar 06/29/2025 11:21 AM 147.0 mg/dL Blood Sugar 06/29/2025 05:49 AM 127.0 mg/dL Blood Sugar 06/28/2025 09:41 PM 282.0 mg/dL Blood Sugar 06/28/2025 05:18 PM 164.0 mg/dL Blood Sugar 06/28/2025 11:36 AM 114.0 mg/dL Blood Sugar 06/28/2025 06:20 AM 114.0 mg/dL Blood Sugar 06/27/2025 08:49 PM 154.0 mg/dL Blood Sugar 06/27/2025 04:28 PM 152.0 mg/dL Blood Sugar 06/27/2025 10:32 AM 146.0 mg/dL Blood Sugar 06/27/2025 06:38 AM 89.0 mg/dL Blood Sugar 06/26/2025 09:58 PM 147.0 mg/dL Blood Sugar 06/26/2025 04:49 PM 119.0 mg/dL Blood Sugar 06/26/2025 10:22 AM 135.0 mg/dL Blood Sugar 06/26/2025 06:40 AM 138.0 mg/dL Blood Sugar 06/25/2025 09:23 PM 230.0 mg/dL Blood Sugar 06/25/2025 04:44 PM 168.0 mg/dL Blood Sugar 06/25/2025 10:16 AM 207.0 mg/dL Blood Sugar 06/25/2025 04:23 AM 146.0 mg/dL Blood Sugar 06/24/2025 09:43 PM 223.0 mg/dL Blood Sugar 06/24/2025 04:49 PM 183.0 mg/dL Blood Sugar 06/24/2025 12:16 PM 147.0 mg/dL Blood Sugar 06/24/2025 06:26 AM 108.0 mg/dL Blood Sugar 06/23/2025 09:20 PM 148.0 mg/dL Blood Sugar 06/23/2025 04:34 PM 133.0 mg/dL Blood Sugar 06/23/2025 11:32 AM 154.0 mg/dL Blood Sugar 06/23/2025 06:05 AM 122.0 mg/dL Blood Sugar 06/22/2025 09:01 PM 132.0 mg/dL Blood Sugar 06/22/2025 04:14 PM 172.0 mg/dL Blood Sugar 06/22/2025 11:52 AM 162.0 mg/dL Blood Sugar 06/22/2025 06:02 AM 134.0 mg/dL Blood Sugar 06/21/2025 09:13 PM 118.0 mg/dL Blood Sugar 06/21/2025 04:20 PM 173.0 mg/dL Blood Sugar 06/21/2025 11:11 AM 165.0 mg/dL Blood Sugar 06/21/2025 06:45 AM 123.0 mg/dL Blood Sugar 06/20/2025 11:30 PM 119.0 mg/dL Blood Sugar 06/20/2025 04:51 PM 168.0 mg/dL Blood Sugar 06/20/2025 11:17 AM 162.0 mg/dL Blood Sugar 06/20/2025 06:15 AM 125.0 mg/dL Blood Sugar 06/19/2025 10:03 PM 245.0 mg/dL Blood Sugar 06/19/2025 04:57 PM 250.0 mg/dL Blood Sugar 06/19/2025 11:35 AM 175.0 mg/dL Blood Sugar 06/19/2025 06:33 AM 150.0 mg/dL Blood Sugar 06/18/2025 10:06 PM 283.0 mg/dL Blood Sugar 06/18/2025 04:40 PM 173.0 mg/dL Blood Sugar 06/18/2025 11:36 AM 170.0 mg/dL Blood Sugar 06/18/2025 05:36 AM 126.0 mg/dL Blood Sugar 06/17/2025 10:45 PM 296.0 mg/dL Blood Sugar 06/17/2025 04:53 PM 201.0 mg/dL Blood Sugar 06/17/2025 10:29 AM 152.0 mg/dL Blood Sugar 06/17/2025 05:44 AM 151.0 mg/dL Blood Sugar 06/17/2025 12:01 AM 174.0 mg/dL Blood Sugar 06/16/2025 04:23 PM 216.0 mg/dL Blood Sugar 06/16/2025 11:44 AM 171.0 mg/dL Blood Sugar 06/16/2025 06:19 AM 113.0 mg/dL Blood Sugar 06/15/2025 08:55 PM 210.0 mg/dL Blood Sugar 06/15/2025 04:05 PM 190.0 mg/dL Blood Sugar 06/15/2025 10:26 AM 134.0 mg/dL Blood Sugar 06/15/2025 04:15 AM 135.0 mg/dL Blood Sugar 06/14/2025 10:49 PM 113.0 mg/dL Blood Sugar 06/14/2025 04:55 PM 143.0 mg/dL Blood Sugar 06/14/2025 11:48 AM 142.0 mg/dL Blood Sugar 06/14/2025 05:41 AM 122.0 mg/dL Blood Sugar 06/13/2025 09:57 PM 232.0 mg/dL Blood Sugar 06/13/2025 04:27 PM 276.0 mg/dL Blood Sugar 06/13/2025 11:13 AM 272.0 mg/dL Blood Sugar 06/13/2025 05:48 AM 180.0 mg/dL Blood Sugar 06/12/2025 10:48 PM 253.0 mg/dL Blood Sugar 06/12/2025 04:34 PM 150.0 mg/dL Blood Sugar 06/12/2025 10:39 AM 150.0 mg/dL Blood Sugar 06/12/2025 06:21 AM 143.0 mg/dL Blood Sugar 06/11/2025 10:35 PM 211.0 mg/dL Blood Sugar 06/11/2025 04:11 PM 138.0 mg/dL Blood Sugar 06/11/2025 10:10 AM 130.0 mg/dL Blood Sugar 06/11/2025 05:36 AM 123.0 mg/dL Blood Sugar 06/10/2025 08:21 PM 288.0 mg/dL Blood Sugar 06/10/2025 04:15 PM 214.0 mg/dL Blood Sugar 06/10/2025 11:20 AM 151.0 mg/dL Blood Sugar 06/10/2025 06:16 AM 142.0 mg/dL Blood Sugar 06/09/2025 10:13 PM 146.0 mg/dL Blood Sugar 06/09/2025 04:53 PM 133.0 mg/dL Blood Sugar 06/09/2025 11:31 AM 157.0 mg/dL Blood Sugar 06/09/2025 04:59 AM 138.0 mg/dL Blood Sugar 06/08/2025 09:22 PM 226.0 mg/dL Blood Sugar 06/08/2025 04:29 PM 183.0 mg/dL Blood Sugar 06/08/2025 12:08 PM 180.0 mg/dL Blood Sugar 06/08/2025 05:23 AM 163.0 mg/dL Blood Sugar 06/07/2025 09:19 PM 315.0 mg/dL Blood Sugar 06/07/2025 04:40 PM 248.0 mg/dL Blood Sugar 06/07/2025 10:59 AM 186.0 mg/dL Blood Sugar 06/07/2025 05:43 AM 157.0 mg/dL Blood Sugar 06/06/2025 08:52 PM 240.0 mg/dL Blood Sugar 06/06/2025 04:32 PM 218.0 mg/dL Blood Sugar 06/06/2025 10:10 AM 191.0 mg/dL Blood Sugar 06/06/2025 06:43 AM 181.0 mg/dL Blood Sugar 06/05/2025 09:32 PM 167.0 mg/dL Blood Sugar 06/05/2025 03:48 PM 159.0 mg/dL Blood Sugar 06/05/2025 11:37 AM 206.0 mg/dL Blood Sugar 06/05/2025 06:13 AM 157.0 mg/dL Blood Sugar 06/04/2025 09:35 PM 137.0 mg/dL Blood Sugar 06/04/2025 04:55 PM 249.0 mg/dL Blood Sugar 06/04/2025 11:16 AM 195.0 mg/dL Blood Sugar 06/04/2025 06:27 AM 155.0 mg/dL Blood Sugar 06/03/2025 11:05 PM 132.0 mg/dL Blood Sugar 06/03/2025 05:13 PM 172.0 mg/dL Blood Sugar 06/03/2025 11:33 AM 145.0 mg/dL Blood Sugar 06/03/2025 05:43 AM 138.0 mg/dL Blood Sugar 06/02/2025 09:13 PM 140.0 mg/dL Blood Sugar 06/02/2025 04:08 PM 134.0 mg/dL Blood Sugar 06/02/2025 12:09 PM 134.0 mg/dL Blood Sugar 06/02/2025 05:32 AM 140.0 mg/dL Blood Sugar 06/01/2025 10:57 PM 136.0 mg/dL Blood Sugar 06/01/2025 04:27 PM 144.0 mg/dL Blood Sugar 06/01/2025 10:45 AM 163.0 mg/dL Blood Sugar 06/01/2025 05:44 AM 118.0 mg/dL Blood Sugar 05/31/2025 09:57 PM 162.0 mg/dL Blood Sugar 05/31/2025 04:55 PM 252.0 mg/dL Blood Sugar 05/31/2025 11:20 AM 182.0 mg/dL Blood Sugar 05/31/2025 06:57 AM 151.0 mg/dL Blood Sugar 05/30/2025 04:41 PM 131.0 mg/dL Blood Sugar 05/30/2025 11:30 AM 159.0 mg/dL Blood Sugar 05/30/2025 06:20 AM 108.0 mg/dL Blood Sugar 05/29/2025 08:49 PM 123.0 mg/dL Blood Sugar 05/29/2025 04:29 PM 173.0 mg/dL Blood Sugar 05/29/2025 10:54 AM 116.0 mg/dL Blood Sugar 05/29/2025 04:15 AM 104.0 mg/dL Blood Sugar 05/28/2025 08:56 PM 230.0 mg/dL Blood Sugar 05/28/2025 04:20 PM 168.0 mg/dL Blood Sugar 05/28/2025 10:59 AM 162.0 mg/dL Blood Sugar 05/28/2025 03:56 AM 114.0 mg/dL Blood Sugar 05/27/2025 09:03 PM 262.0 mg/dL Blood Sugar 05/27/2025 04:18 PM 235.0 mg/dL Blood Sugar 05/27/2025 11:14 AM 196.0 mg/dL Blood Sugar 05/27/2025 06:41 AM 111.0 mg/dL Blood Sugar 05/26/2025 09:42 PM 164.0 mg/dL Blood Sugar 05/26/2025 03:48 PM 147.0 mg/dL Blood Sugar 05/26/2025 11:31 AM 158.0 mg/dL Blood Sugar 05/26/2025 05:54 AM 108.0 mg/dL Blood Sugar 05/25/2025 08:56 PM 148.0 mg/dL Blood Sugar 05/25/2025 04:16 PM 131.0 mg/dL Blood Sugar 05/25/2025 10:52 AM 152.0 mg/dL Blood Sugar 05/25/2025 08:48 AM 125.0 mg/dL Blood Sugar 05/24/2025 09:04 PM 229.0 mg/dL Blood Sugar 05/24/2025 04:17 PM 223.0 mg/dL Blood Sugar 05/24/2025 11:22 AM 174.0 mg/dL Blood Sugar 05/24/2025 06:28 AM 110.0 mg/dL Blood Sugar 05/23/2025 07:22 PM 178.0 mg/dL Blood Sugar 05/23/2025 04:51 PM 212.0 mg/dL Blood Sugar 05/23/2025 11:13 AM 315.0 mg/dL Blood Sugar 05/23/2025 06:08 AM 150.0 mg/dL Blood Sugar 05/22/2025 10:15 PM 147.0 mg/dL Blood Sugar 05/22/2025 04:15 PM 203.0 mg/dL Blood Sugar 05/22/2025 11:47 AM 155.0 mg/dL Blood Sugar 05/22/2025 06:25 AM 161.0 mg/dL Blood Sugar 05/21/2025 09:40 PM 143.0 mg/dL Blood Sugar 05/21/2025 04:36 PM 236.0 mg/dL Blood Sugar 05/21/2025 11:36 AM 140.0 mg/dL Blood Sugar 05/21/2025 04:17 AM 117.0 mg/dL Blood Sugar 05/20/2025 10:54 PM 117.0 mg/dL Blood Sugar 05/20/2025 04:54 PM 154.0 mg/dL Blood Sugar 05/20/2025 09:37 AM 167.0 mg/dL Blood Sugar 05/20/2025 05:39 AM 117.0 mg/dL Blood Sugar 05/19/2025 09:50 PM 144.0 mg/dL Blood Sugar 05/19/2025 04:22 PM 217.0 mg/dL Blood Sugar 05/19/2025 11:09 AM 321.0 mg/dL Blood Sugar 05/19/2025 03:52 AM 239.0 mg/dL Blood Sugar 05/18/2025 09:42 PM 266.0 mg/dL Blood Sugar 05/18/2025 04:18 PM 213.0 mg/dL Blood Sugar 05/18/2025 11:15 AM 192.0 mg/dL Blood Sugar 05/18/2025 05:44 AM 167.0 mg/dL Blood Sugar 05/17/2025 10:58 PM 184.0 mg/dL Blood Sugar 05/17/2025 05:28 PM 222.0 mg/dL Blood Sugar 05/17/2025 11:18 AM 228.0 mg/dL Blood Sugar 05/17/2025 06:38 AM 116.0 mg/dL Blood Sugar 05/16/2025 09:33 PM 169.0 mg/dL Blood Sugar 05/16/2025 04:15 PM 260.0 mg/dL Blood Sugar 05/16/2025 11:07 AM 170.0 mg/dL Blood Sugar 05/16/2025 07:29 AM 117.0 mg/dL Blood Sugar 05/15/2025 09:00 PM 175.0 mg/dL Blood Sugar 05/15/2025 04:22 PM 260.0 mg/dL Blood Sugar 05/15/2025 09:41 AM 219.0 mg/dL Blood Sugar 05/15/2025 06:40 AM 132.0 mg/dL Blood Sugar 05/14/2025 09:25 PM 180.0 mg/dL Blood Sugar 05/14/2025 04:11 PM 149.0 mg/dL Blood Sugar 05/14/2025 11:29 AM 161.0 mg/dL Blood Sugar 05/14/2025 06:24 AM 135.0 mg/dL Blood Sugar 05/13/2025 09:09 PM 125.0 mg/dL Blood Sugar 05/13/2025 04:20 PM 220.0 mg/dL Blood Sugar 05/13/2025 11:19 AM 200.0 mg/dL Blood Sugar 05/13/2025 06:06 AM 125.0 mg/dL Blood Sugar 05/12/2025 10:11 PM 167.0 mg/dL Blood Sugar 05/12/2025 04:11 PM 166.0 mg/dL Blood Sugar 05/12/2025 11:30 AM 182.0 mg/dL Blood Sugar 05/12/2025 05:40 AM 160.0 mg/dL Blood Sugar 05/11/2025 09:24 PM 211.0 mg/dL Blood Sugar 05/11/2025 04:19 PM 212.0 mg/dL Blood Sugar 05/11/2025 10:42 AM 134.0 mg/dL Blood Sugar 05/11/2025 06:24 AM 124.0 mg/dL Blood Sugar 05/10/2025 08:42 PM 195.0 mg/dL Blood Sugar 05/10/2025 04:12 PM 318.0 mg/dL Blood Sugar 05/10/2025 11:29 AM 182.0 mg/dL Blood Sugar 05/10/2025 03:30 AM 134.0 mg/dL Blood Sugar 05/09/2025 07:49 PM 124.0 mg/dL Blood Sugar 05/09/2025 04:23 PM 177.0 mg/dL Blood Sugar 05/09/2025 06:08 AM 122.0 mg/dL Blood Sugar 05/08/2025 08:05 PM 146.0 mg/dL Blood Sugar 05/08/2025 04:17 PM 211.0 mg/dL Blood Sugar 05/08/2025 11:35 AM 168.0 mg/dL Blood Sugar 05/08/2025 06:11 AM 158.0 mg/dL Blood Sugar 05/07/2025 10:22 PM 143.0 mg/dL Blood Sugar 05/07/2025 04:13 PM 153.0 mg/dL Blood Sugar 05/07/2025 11:17 AM 208.0 mg/dL Blood Sugar 05/07/2025 06:11 AM 93.0 mg/dL Blood Sugar 05/06/2025 10:10 PM 133.0 mg/dL Blood Sugar 05/06/2025 05:32 PM 147.0 mg/dL Blood Sugar 05/06/2025 10:39 AM 169.0 mg/dL Blood Sugar 05/06/2025 06:26 AM 137.0 mg/dL Blood Sugar 05/05/2025 08:46 PM 184.0 mg/dL Blood Sugar 05/05/2025 04:20 PM 449.0 mg/dL Blood Sugar 05/05/2025 11:09 AM 177.0 mg/dL Blood Sugar 05/05/2025 06:10 AM 128.0 mg/dL Blood Sugar 05/04/2025 08:42 PM 282.0 mg/dL Blood Sugar 05/04/2025 04:31 PM 166.0 mg/dL Blood Sugar 05/04/2025 10:55 AM 200.0 mg/dL Blood Sugar 05/04/2025 05:34 AM 110.0 mg/dL Blood Sugar 05/03/2025 09:49 PM 239.0 mg/dL Blood Sugar 05/03/2025 04:28 PM 176.0 mg/dL Blood Sugar 05/03/2025 11:10 AM 273.0 mg/dL Blood Sugar 05/03/2025 06:01 AM 110.0 mg/dL Blood Sugar 05/02/2025 08:45 PM 185.0 mg/dL Blood Sugar 05/02/2025 04:32 PM 180.0 mg/dL Blood Sugar 05/02/2025 10:50 AM 191.0 mg/dL Blood Sugar 05/02/2025 05:37 AM 132.0 mg/dL Blood Sugar 05/01/2025 08:04 PM 187.0 mg/dL Blood Sugar 05/01/2025 03:46 PM 235.0 mg/dL Blood Sugar 05/01/2025 10:55 AM 157.0 mg/dL Blood Sugar 05/01/2025 05:54 AM 118.0 mg/dL Blood Sugar 05/01/2025 12:22 AM 145.0 mg/dL Blood Sugar 04/30/2025 03:46 PM 149.0 mg/dL Blood Sugar 04/30/2025 10:45 AM 122.0 mg/dL Blood Sugar 04/30/2025 06:03 AM 287.0 mg/dL Blood Sugar 04/29/2025 07:32 PM 180.0 mg/dL Blood Sugar 04/29/2025 03:50 PM 173.0 mg/dL Blood Sugar 04/29/2025 11:00 AM 224.0 mg/dL Blood Sugar 04/29/2025 04:20 AM 121.0 mg/dL Blood Sugar 04/28/2025 10:06 PM 302.0 mg/dL Blood Sugar 04/28/2025 04:34 PM 149.0 mg/dL Blood Sugar 04/24/2025 06:25 PM 164.0 mg/dL Blood Sugar 04/24/2025 11:37 AM 200.0 mg/dL Blood Sugar 04/24/2025 04:27 AM 161.0 mg/dL Blood Sugar 04/23/2025 09:48 PM 137.0 mg/dL Blood Sugar 04/23/2025 04:37 PM 174.0 mg/dL Blood Sugar 04/23/2025 11:40 AM 249.0 mg/dL Blood Sugar 04/23/2025 03:46 AM 213.0 mg/dL Blood Sugar 04/22/2025 08:27 PM 240.0 mg/dL Blood Sugar 04/22/2025 05:22 PM 354.0 mg/dL Blood Sugar 04/22/2025 10:21 AM 255.0 mg/dL Blood Sugar 04/22/2025 03:57 AM 147.0 mg/dL Blood Sugar 04/21/2025 11:29 AM 186.0 mg/dL Blood Sugar 04/21/2025 05:51 AM 170.0 mg/dL Blood Sugar 04/20/2025 09:17 PM 234.0 mg/dL Blood Sugar 04/20/2025 03:26 PM 199.0 mg/dL Blood Sugar 04/20/2025 09:46 AM 216.0 mg/dL Blood Sugar 04/20/2025 04:09 AM 144.0 mg/dL Blood Sugar 04/19/2025 10:47 PM 134.0 mg/dL Blood Sugar 04/19/2025 04:13 PM 241.0 mg/dL Blood Sugar 04/19/2025 11:26 AM 194.0 mg/dL Blood Sugar 04/19/2025 05:31 AM 124.0 mg/dL Blood Sugar 04/18/2025 09:22 PM 177.0 mg/dL Blood Sugar 04/18/2025 03:18 PM 324.0 mg/dL Blood Sugar 04/18/2025 11:12 AM 139.0 mg/dL Blood Sugar 04/18/2025 04:24 AM 108.0 mg/dL Blood Sugar 04/17/2025 09:00 PM 181.0 mg/dL Blood Sugar 04/17/2025 03:23 PM 187.0 mg/dL Blood Sugar 04/17/2025 11:01 AM 198.0 mg/dL Blood Sugar 04/17/2025 03:50 AM 119.0 mg/dL Blood Sugar 04/16/2025 08:47 PM 153.0 mg/dL Blood Sugar 04/16/2025 03:30 PM 191.0 mg/dL Blood Sugar 04/16/2025 09:39 AM 199.0 mg/dL Blood Sugar 04/16/2025 04:28 AM 145.0 mg/dL Blood Sugar 04/15/2025 08:56 PM 172.0 mg/dL Blood Sugar 04/15/2025 03:27 PM 332.0 mg/dL Blood Sugar 04/15/2025 11:34 AM 218.0 mg/dL Blood Sugar 04/15/2025 05:19 AM 163.0 mg/dL Blood Sugar 04/14/2025 09:02 PM 139.0 mg/dL Blood Sugar 04/14/2025 04:02 PM 129.0 mg/dL Blood Sugar 04/14/2025 11:27 AM 140.0 mg/dL Blood Sugar 04/14/2025 05:20 AM 145.0 mg/dL Blood Sugar 04/13/2025 09:12 PM 287.0 mg/dL Blood Sugar 04/13/2025 03:17 PM 249.0 mg/dL Blood Sugar 04/13/2025 09:29 AM 213.0 mg/dL Blood Sugar 04/13/2025 07:27 AM 142.0 mg/dL Blood Sugar 04/12/2025 08:29 PM 153.0 mg/dL Blood Sugar 04/12/2025 03:28 PM 180.0 mg/dL Blood Sugar 04/12/2025 11:41 AM 248.0 mg/dL Blood Sugar 04/12/2025 03:51 AM 134.0 mg/dL Blood Sugar 04/11/2025 07:34 PM 325.0 mg/dL Blood Sugar 04/11/2025 03:32 PM 202.0 mg/dL Blood Sugar 04/11/2025 10:27 AM 165.0 mg/dL Blood Sugar 04/11/2025 05:07 AM 231.0 mg/dL Blood Sugar 04/10/2025 10:18 PM 154.0 mg/dL Blood Sugar 04/10/2025 05:30 PM 226.0 mg/dL Blood Sugar 04/10/2025 11:23 AM 163.0 mg/dL Blood Sugar 04/10/2025 04:18 AM 189.0 mg/dL Goals Goal Date 2. Will be free of s/s dehyd ration, fluid overload, electrolyte imbalance through next review 07/16/2025 1. Will be free of significa nt weight changes q month 5% +/- per nursing/grand rounds, weight reports 07/16/2025 Resident will maintain current level of function and have needs met 07/16/2025 Resident will remain free from injury. 0 07/16/2025 Resident's skin will remain intact. 06/28 Resident will not exhibit si gns of drug related: sedation, hypotension, or anticholinergic symptoms. 07/16/2025 Resident will not have signs of hypoglyc emia or hyperglycemia. 07/16/2025 Resident will have a regular , soft-formed bowel movement _3 times per week. 07/16/2025 Resident will have catheter care managed appropriately as evidenced by not exhibiting signs of infection or urethral trauma. 07/16/2025 Resident's EBP will reduce t he spread of infectious agents and minimize the transmission of infections. 07/16/2025 Resident will not exhibit sk in breakdown, constipation/impaction, impaired social interaction, secondary to bowel incontinence. 07/16/2025 Resident will have documente d episodes of continence weekly thru next review 07/16/2025 Resident's code status alejandro ion will be honored daily through next review date 07/16/2025 Cesar will participate in leave of absence (LEIGHA) with family/friends and follow facility LEIGHA rules through next review 07/16/2025 Resident will not harm self. 07/16/2025 Resident will not make sexua lly inappropriate comments directed at other residents, visitors, and/or staff. 07/16/2025 Resident will express satisf action with daily routine and leisure activities. 07/16/2025 Resident will hear, process, and underst and communication. 07/16/2025 The resident will remain carmelina e from discomfort, complications or s/sx related to dx of GERD through review date . 07/16/2025 The resident will remain carmelina e of s/sx or complications related to anemia through review date . 07/16/2025 Resident will not exhibit so cially inappropriate/disruptive behavior. Behavior pattern: yelling out for help then stating he doesn't need anything 07/16/2025 REs will be free of med related complica tions 07/16/2025 Resident will participate in restorative ROM 6-7days/week 15min daily 07/16/2025 Resident will remain free fr om signs and symptoms of abnormal bleeding or bruising through next review. 07/16/2025 Will have no complaints of insomnia 06/28 The resident will maintain a cceptable level of comfort through review date. ( 07/16/2025 The resident will remain carmelina e of s/sx of distress, symptoms of depression, anxiety or sad mood by/through review date 07/16/2025 The resident will have no s/ sx of complications r/t fluid deficit or overload through the review date . 07/16/2025 Resident will not exhibit si gns of choking, aspiration, dehydration, or malnutrition. 07/16/2025 The resident will remain carmelina e of complications or discomfort related to Hemiplegia/Hemiparesis through review date. 07/16/2025 Resident will develop effective coping s trategies to help adapt to pain. 07/16/2025 Resident will not experience negative consequences of vision loss as evidenced by remaining physically safe and participating in social and self-care activities. 07/16/2025 Resident will be free from _ __ (e.g., tooth decay, inflamed gums, swollen or bleeding gums, oral abscess, ulcers or rashes). 07/16/2025 Resident will express need and acceptanc e of placement through next review 07/26/2025 The resident will be free fr om injury from seizure activity through the review date 07/28/2025 Encounters Admission Date Discharge Date Description MRN Visit Count 06/01/2024 15:30 LTPAC Admission [id number]
--- OUTSIDE RECORDS SUMMARY | 2025-07-10 18:52 | XMS_ITS | Clinical Summary ---
Author Organization [facility] Address [address] [place] [address] Care Team Providers Care Poultry Veterinarian Name Role Phone Vinnie Garza DO Primary Care Provider [phone] Allergies No known active allergies Medications acetaminophen (Tylenol) 500 mg tablet Take 1,000 mg by mouth every 8 (eight) hours if needed. Active aspirin 81 mg EC tablet Take 81 mg by mouth in the morning. 10/30/19 24 Active atorvastatin (Lipitor) 40 mg tablet Take 40 mg by mouth in the morning. 10/29/19 24 Active gabapentin (Neurontin) 100 mg capsule Take 100 mg by mouth 3 times a day. 04/21/20 24 Active Lantus Solostar U-100 Insulin 100 unit/mL (3 mL) injection pen ADMINISTER 15 UNITS UNDER THE SKIN AT BEDTIME Active magnesium hydroxide (Milk of Magnesia) 400 mg/5 mL suspension Take 30 mL by mouth. Active pantoprazole (ProtoNix) 40 mg EC tablet 08/20/20 24 Active sennosides-docusate sodium (Marilin-Colace) 8.6-50 mg tablet Take 1 tablet by mouth in the morning. Active tamsulosin (Flomax) 0.4 mg 24 hr capsule 0.4 mg in the morning. 08/30/20 24 Active traZODone (Desyrel) 50 mg tablet Take 75 mg by mouth in the morning. Active ticagrelor (Brilinta) 90 mg tablet Take 90 mg by mouth two times daily. Active metoprolol succinate XL (Toprol-XL) 50 mg 24 hr tabletIndications:P alpitations Take 1 tablet (50 mg) by mouth in the morning. Do not crush or chew. 90 tablet 3 09/09/20 24 025 Active insulin lispro (Admelog SoloStar U-100 Insulin) 100 unit/mL injection pen 3 mL, 0 Refill(s), Refills(s) 0 10/29/19 24 Active finasteride (Proscar) 5 mg tablet Take 5 mg by mouth in the morning. 10/25/20 24 Active lamoTRIgine (LaMICtal) 25 mg tablet Take 25 mg by mouth in the morning. 11/04/19 25 Active buPROPion XL (Wellbutrin XL) 150 mg 24 hr tablet 01/20/20 25 Active folic acid (Folvite) 1 mg tablet Take by mouth in the morning. 01/09/20 25 Active hydrOXYzine HCL (Atarax) 25 mg tablet Take 25 mg by mouth every 6 (six) hours if needed. Active iron polysaccharides (Ferrex 150) 150 mg iron capsule Take by mouth in the morning. 01/09/20 Active melatonin 3 mg tablet Take 6 mg by mouth. Active loperamide (Imodium A-D) 2 mg tablet Take 2 mg by mouth if needed in the morning, at noon, in the evening, and at bedtime for diarrhea. Active metoprolol tartrate (Lopressor) 50 mg tablet Take 50 mg by mouth once daily as directed. Active Active Problems Problem Noted Date Diagnosed Date Anticoagulated 12/08/2024 BPH with urinary obstruction 12/08/2024 Cerebral atherosclerosis 12/08/2024 Chronic kidney disease 12/08/2024 Complex renal cyst 12/08/2024 Gross hematuria 12/08/2024 History of UTI 12/08/2024 Syncope and collapse 11/25/2024 Cholesterolosis of gallbladder 11/15/2024 2019-nCoV acute respiratory disease 11/10/2024 Chronic indwelling Cyr catheter 10/02/2024 Constipation 10/02/2024 Hematuria 10/02/2024 Essential hypertension 09/29/2024 SAH (subarachnoid hemorrhage) 06/05/2024 Traumatic cerebral edema wit h unknown loss of consciousness status 06/05/2024 Other hypertrophic cardiomyopathy 06/01/2024 Ventricular tachycardia 06/01/2024 Hyponatremia 05/28/2024 Other visual disturbances 05/28/2024 Unsteadiness on feet 05/28/2024 Hx of completed stroke 05/27/2024 Weakness 05/27/2024 Acute ischemic stroke 04/11/2024 Anemia 04/10/2024 Cerebrovascular accident (CV A) due to occlusion of right middle cerebral artery 04/10/2024 Acute renal failure with acu te renal cortical necrosis superimposed on stage 3a chronic kidney disease 04/09/2024 Stroke-like symptoms 04/09/2024 Arthritis of right knee 12/30/2023 Gait instability 12/11/2023 Sequelae, post-stroke 12/11/2023 Blurred vision 10/28/2023 Mixed hyperlipidemia 10/28/2023 Type 2 diabetes mellitus 10/28/2023 Type 2 diabetes mellitus wit h hyperglycemia, with long-term current use of insulin 10/28/2023 AMS (altered mental status) 10/26/2023 Family History Medical History Relation Name Comments No Known Problems Father No Known Problems Mother Heart attack Paternal Grandmother Relation Name Status Comments Father Mother Paternal Grandmother Social History Tobacco Use Types Packs/Day Years Used Date Smoking Tobacco: Every Day Cigarettes Smokeless Tobacco: Never Alcohol Use Standard Drinks/Week Comments Never 0 (1 standard drink = 0.6 oz pur e alcohol) [place] Safety & Environment Answer Date Rec orded Fear of Current or Ex-Partner Not on file Emotionally Abused Not on file 04/15/2024 Physically Abused Not on file 04/15/2024 Sexually Abused Not on file 04/15/2024 Physically or Sexually Abused Not on file Sex and Gender Information Value Date Recorded Sex Assigned at Not on file Legal Sex Male 12:05 AM EDT Gender Identity Not on file Sexual Orientation Not on file Last Filed Vital Signs Vital Sign Reading Time Taken Comments Blood Pressure 117/68 01/21/2025 11:05 AM EDT Pulse 63 01/21/2025 11:05 AM EDT Temperature - - Respiratory Rate - - Oxygen Saturation 96% 01/21/2025 11:05 AM EDT Inhaled Oxygen Concentration - - Weight 86.2 kg (190 lb) 01/21/2025 11:05 AM EDT Height 177.8 cm (5' 10 ) 01/21/2025 11:05 AM EDT Body Mass Index 27.26 01/21/2025 11:05 AM EDT Plan of Treatment Health Maintenance Due Date Last Done Comments CT Colonography 1953 Diabetes: Hemoglobin A1C 1953 FIT-DNA 1953 FIT 1953 FOBT 1955 Medicare Annual Wellness (AWV) 1955 Sigmoidoscopy 1953 Diabetes: Retinopathy Screening 1963 Depression Screening 1965 Diabetes: Urine Protein Screening 1972 Pneumococcal Vaccine: 50+ Ye ars (1 of 2 - PCV) 1972 Adult Tetanus 1975 Zoster Vaccines (1 of 2) 2003 Fall Risk Screening 2018 COVID-19 Vaccine (1 - 2023-2 5 season) 2025 Influenza Vaccine (#1) 2025 07/08/2018 Colonoscopy 04/19/2034 04/19/2024 Colorectal Cancer Screening 04/19/2034 HIB Vaccines Aged Out No longer eligi ble based on patient's age to complete this topic HPV Vaccines Aged Out No longer eligi ble based on patient's age to complete this topic IPV Vaccines Aged Out No longer eligi ble based on patient's age to complete this topic Meningococcal B Vaccine Aged Out No l onger eligible based on patient's age to complete this topic Meningococcal Vaccine Aged Out No monet adi eligible based on patient's age to complete this topic Rotavirus Vaccines Aged Out No longer eligible based on patient's age to complete this topic Insurance MEDICAID [place] [employer] [place] [address] Care Teams Poultry Veterinarian Relationship Specialty Start Date End Date Vinnie Garza DO [address] [place] [address] PCP - General Internal Medicine 09/09/24
--- OUTSIDE RECORDS SUMMARY | 2025-07-10 18:53 | XMS_ITS | Patient Health Record ---
Author Organization [facility] Address [address] [place] [address] [place] [address] Care Team Providers Care Hose Tester Name Role Phone Vinnie Garza MD Primary Care Provider Aamir Samson Unavailable [phone] Reason For Referral No Information Encounters Encounter Location Date Provider Diagnosis [facility] [address] [place] [address] 08/18/2024 [facility] [address] [place] [address] 02/16/2025 [facility] [address] [place] [address] 05/18/2025 Aamir Cedillo Plan Of Treatment No Information Insurance Providers Payer Name Payer Address Payer Phone Subscriber Number Group Number Insured Name Patient Relationship to Insured Coverage Start Date Coverage End Date [facility] [address] [address] [place] [address] [id number] Cesar Akhtar Self - patient is the insured
--- OUTSIDE RECORDS SUMMARY | 2025-07-10 18:53 | XMS_ITS | Continuity of Care Document ---
Author Organization [facility] Address [address] [place], [place] [id number] Insurance Providers Payer Plan Claims Address Claims Phone Policy Number Group Number Relation Employer Guarantor Name Guarantor Guarantor Address Guarantor Phone [employer] [address], [place] [address] tel:[phone] Self Cesar Rivera 1955 [address] [place] [address] MEDIC ARE - [place] [facility] [address] [place] [address] tel:[phone] Self Cesar Rivera 1955 [address] [place] [address] Medic are [employer] [address], [place] [address] tel:[phone] [id number] Self Cesar Rivear 1955 [address] [place] [address] Problems Condition ICD9 code ICD10 code SNOMED code Start Date End Date S oscar COVID-19 U07.1 11/10/2024 Active 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 11/15/2024 Active Cerebral infarction, unspecified I63.9 06/05/2024 Active 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 I63.511 05/28/2024 Ac tive Unspecified sequelae of cerebral infarction I69.30 05/28/2024 Activ e Anemia, unspecified D64.9 05/28/2024 A ctive Other visual disturbances H53.8 05/28/2024 Active Unsteadiness on feet R26.81 05/28/2024 Active Altered mental status, unspecified R41.82 05/28/2024 Active Weakness R53.1 05/28/2024 Active Personal history of transient ischemic attack (TIA), and cerebral infarction without residual deficits Z86.73 05/28/2024 Active Unilateral primary osteoarthritis, right knee M17.11 05/28/2024 Active Nontraumatic subarachnoid hemorrhage, unspecified I60.9 06/05/2024 A ctive Acute kidney failure, unspecified N17.9 05/28/2024 Active Syncope and collapse R55 11/25/2024 Active Other hypertrophic cardiomyopathy I42.2 06/01/2024 Active Ventricular tachycardia, unspecified I47.20 06/01/2024 Active Infection and inflammatory reaction due to indwelling urethral catheter, subsequent encounter T83.511D 04/28/2025 Active Urinary tract infection, site not specified N39.0 04/28/2025 Active Other generalized epilepsy and epileptic syndromes, not intractable, 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 Refere nce Range Blood chemistry[[id number]] Glucose [Mass/volume] in Serum or Plasma [2345-7] 07/10/2025 08:50 AM 183 mg/dL N Blood chemistry[[id number]] Glucose [Mass/volume] in Serum or Plasma [2345-7] 07/10/2025 02:05 PM 131 mg/dL N Blood chemistry[[id number]] Glucose [Mass/volume] in Serum or Plasma [2345-7] 07/10/2025 08:05 AM 91 mg/dL N Blood chemistry[[id number]] Glucose [Mass/volume] in Serum or Plasma [2345-7] 07/09/2025 11:43 AM 282 mg/dL N Blood chemistry[[id number]] Glucose [Mass/volume] in Serum or Plasma [2345-7] 07/09/2025 08:06 AM 143 mg/dL N Blood chemistry[[id number]] Glucose [Mass/volume] in Serum or Plasma [2345-7] 07/09/2025 02:01 PM 130 mg/dL N Blood chemistry[[id number]] Glucose [Mass/volume] in Serum or Plasma [2345-7] 07/09/2025 10:32 AM 84 mg/dL N Blood chemistry[[id number]] Glucose [Mass/volume] in Serum or Plasma [2345-7] 07/08/2025 02:38 PM 200 mg/dL N Blood chemistry[[id number]] Glucose [Mass/volume] in Serum or Plasma [2345-7] 07/08/2025 09:12 AM 167 mg/dL N Blood chemistry[[id number]] Glucose [Mass/volume] in Serum or Plasma [2345-7] 07/08/2025 03:12 PM 209 mg/dL N Blood chemistry[[id number]] Glucose [Mass/volume] in Serum or Plasma [2345-7] 07/08/2025 10:43 AM 139 mg/dL N Blood chemistry[[id number]] Glucose [Mass/volume] in Serum or Plasma [2345-7] 07/07/2025 02:19 PM 131 mg/dL N Blood chemistry[[id number]] Glucose [Mass/volume] in Serum or Plasma [2345-7] 07/07/2025 08:40 AM 166 mg/dL N Blood chemistry[[id number]] Glucose [Mass/volume] in Serum or Plasma [2345-7] 07/07/2025 03:20 PM 142 mg/dL N Blood chemistry[[id number]] Glucose [Mass/volume] in Serum or Plasma [2345-7] 07/07/2025 10:43 AM 131 mg/dL N Blood chemistry[[id number]] Glucose [Mass/volume] in Serum or Plasma [2345-7] 07/06/2025 12:50 PM 210 mg/dL N Blood chemistry[[id number]] Glucose [Mass/volume] in Serum or Plasma [2345-7] 07/06/2025 08:50 AM 147 mg/dL N Blood chemistry[[id number]] Glucose [Mass/volume] in Serum or Plasma [2345-7] 07/06/2025 02:08 PM 219 mg/dL N Blood chemistry[[id number]] Glucose [Mass/volume] in Serum or Plasma [2345-7] 07/06/2025 09:43 AM 126 mg/dL N Blood chemistry[[id number]] Glucose [Mass/volume] in Serum or Plasma [2345-7] 07/05/2025 02:00 PM 109 mg/dL N Blood chemistry[[id number]] Glucose [Mass/volume] in Serum or Plasma [2345-7] 07/05/2025 11:07 AM 246 mg/dL N Blood chemistry[[id number]] Glucose [Mass/volume] in Serum or Plasma [2345-7] 07/05/2025 02:58 PM 148 mg/dL N Blood chemistry[[id number]] Glucose [Mass/volume] in Serum or Plasma [2345-7] 07/05/2025 10:41 AM 114 mg/dL N Blood chemistry[[id number]] Glucose [Mass/volume] in Serum or Plasma [2345-7] 07/04/2025 02:22 PM 205 mg/dL N Blood chemistry[[id number]] Glucose [Mass/volume] in Serum or Plasma [2345-7] 07/04/2025 09:06 AM 148 mg/dL N Blood chemistry[[id number]] Glucose [Mass/volume] in Serum or Plasma [2345-7] 07/04/2025 02:31 PM 178 mg/dL N Blood chemistry[[id number]] Glucose [Mass/volume] in Serum or Plasma [2345-7] 07/04/2025 10:40 AM 127 mg/dL N Blood chemistry[[id number]] Glucose [Mass/volume] in Serum or Plasma [2345-7] 07/03/2025 02:46 PM 131 mg/dL N Blood chemistry[[id number]] Glucose [Mass/volume] in Serum or Plasma [2345-7] 07/03/2025 08:23 AM 167 mg/dL N Blood chemistry[[id number]] Glucose [Mass/volume] in Serum or Plasma [2345-7] 07/03/2025 03:42 PM 146 mg/dL N Blood chemistry[[id number]] Glucose [Mass/volume] in Serum or Plasma [2345-7] 07/03/2025 10:13 AM 144 mg/dL N Blood chemistry[[id number]] Glucose [Mass/volume] in Serum or Plasma [2345-7] 07/02/2025 03:28 PM 123 mg/dL N Blood chemistry[[id number]] Glucose [Mass/volume] in Serum or Plasma [2345-7] 07/02/2025 08:24 AM 196 mg/dL N Blood chemistry[[id number]] Glucose [Mass/volume] in Serum or Plasma [2345-7] 07/02/2025 03:23 PM 114 mg/dL N Blood chemistry[[id number]] Glucose [Mass/volume] in Serum or Plasma [2345-7] 07/02/2025 08:07 AM 138 mg/dL N Blood chemistry[[id number]] Glucose [Mass/volume] in Serum or Plasma [2345-7] 07/01/2025 12:25 PM 193 mg/dL N Blood chemistry[[id number]] Glucose [Mass/volume] in Serum or Plasma [2345-7] 07/01/2025 08:35 AM 160 mg/dL N Blood chemistry[[id number]] Glucose [Mass/volume] in Serum or Plasma [2345-7] 07/01/2025 02:13 PM 153 mg/dL N Blood chemistry[[id number]] Glucose [Mass/volume] in Serum or Plasma [2345-7] 07/01/2025 09:47 AM 124 mg/dL N Blood chemistry[[id number]] Glucose [Mass/volume] in Serum or Plasma [2345-7] 06/30/2025 03:06 PM 180 mg/dL N Blood chemistry[[id number]] Glucose [Mass/volume] in Serum or Plasma [2345-7] 06/30/2025 02:38 PM 198 mg/dL N Blood chemistry[[id number]] Glucose [Mass/volume] in Serum or Plasma [2345-7] 06/30/2025 10:29 AM 124 mg/dL N Blood chemistry[[id number]] Glucose [Mass/volume] in Serum or Plasma [2345-7] 06/30/2025 09:41 AM 200 mg/dL N Blood chemistry[[id number]] Glucose [Mass/volume] in Serum or Plasma [2345-7] 06/29/2025 03:21 PM 147 mg/dL N Blood chemistry[[id number]] Glucose [Mass/volume] in Serum or Plasma [2345-7] 06/29/2025 12:33 PM 240 mg/dL N Blood chemistry[[id number]] Glucose [Mass/volume] in Serum or Plasma [2345-7] 06/29/2025 09:49 AM 127 mg/dL N Blood chemistry[[id number]] Glucose [Mass/volume] in Serum or Plasma [2345-7] 06/29/2025 08:20 AM 149 mg/dL N Blood chemistry[[id number]] Glucose [Mass/volume] in Serum or Plasma [2345-7] 06/28/2025 03:36 PM 114 mg/dL N Blood chemistry[[id number]] Glucose [Mass/volume] in Serum or Plasma [2345-7] 06/28/2025 01:41 PM 282 mg/dL N Blood chemistry[[id number]] Glucose [Mass/volume] in Serum or Plasma [2345-7] 06/28/2025 10:20 AM 114 mg/dL N Blood chemistry[[id number]] Glucose [Mass/volume] in Serum or Plasma [2345-7] 06/28/2025 09:18 AM 164 mg/dL N Blood chemistry[[id number]] Glucose [Mass/volume] in Serum or Plasma [2345-7] 06/27/2025 02:32 PM 146 mg/dL N Blood chemistry[[id number]] Glucose [Mass/volume] in Serum or Plasma [2345-7] 06/27/2025 12:49 PM 154 mg/dL N Blood chemistry[[id number]] Glucose [Mass/volume] in Serum or Plasma [2345-7] 06/27/2025 10:38 AM 89 mg/dL N Blood chemistry[[id number]] Glucose [Mass/volume] in Serum or Plasma [2345-7] 06/27/2025 08:28 AM 152 mg/dL N Blood chemistry[[id number]] Glucose [Mass/volume] in Serum or Plasma [2345-7] 06/26/2025 02:22 PM 135 mg/dL N Blood chemistry[[id number]] Glucose [Mass/volume] in Serum or Plasma [2345-7] 06/26/2025 01:58 PM 147 mg/dL N Blood chemistry[[id number]] Glucose [Mass/volume] in Serum or Plasma [2345-7] 06/26/2025 10:40 AM 138 mg/dL N Blood chemistry[[id number]] Glucose [Mass/volume] in Serum or Plasma [2345-7] 06/26/2025 08:49 AM 119 mg/dL N Blood chemistry[[id number]] Glucose [Mass/volume] in Serum or Plasma [2345-7] 06/25/2025 02:16 PM 207 mg/dL N Blood chemistry[[id number]] Glucose [Mass/volume] in Serum or Plasma [2345-7] 06/25/2025 01:23 PM 230 mg/dL N Blood chemistry[[id number]] Glucose [Mass/volume] in Serum or Plasma [2345-7] 06/25/2025 08:44 AM 168 mg/dL N Blood chemistry[[id number]] Glucose [Mass/volume] in Serum or Plasma [2345-7] 06/25/2025 08:23 AM 146 mg/dL N Blood chemistry[[id number]] Glucose [Mass/volume] in Serum or Plasma [2345-7] 06/24/2025 04:16 PM 147 mg/dL N Blood chemistry[[id number]] Glucose [Mass/volume] in Serum or Plasma [2345-7] 06/24/2025 01:43 PM 223 mg/dL N Blood chemistry[[id number]] Glucose [Mass/volume] in Serum or Plasma [2345-7] 06/24/2025 10:26 AM 108 mg/dL N Blood chemistry[[id number]] Glucose [Mass/volume] in Serum or Plasma [2345-7] 06/24/2025 08:49 AM 183 mg/dL N Blood chemistry[[id number]] Glucose [Mass/volume] in Serum or Plasma [2345-7] 06/23/2025 03:32 PM 154 mg/dL N Blood chemistry[[id number]] Glucose [Mass/volume] in Serum or Plasma [2345-7] 06/23/2025 01:20 PM 148 mg/dL N Blood chemistry[[id number]] Glucose [Mass/volume] in Serum or Plasma [2345-7] 06/23/2025 10:05 AM 122 mg/dL N Blood chemistry[[id number]] Glucose [Mass/volume] in Serum or Plasma [2345-7] 06/23/2025 08:34 AM 133 mg/dL N Blood chemistry[[id number]] Glucose [Mass/volume] in Serum or Plasma [2345-7] 06/22/2025 03:52 PM 162 mg/dL N Blood chemistry[[id number]] Glucose [Mass/volume] in Serum or Plasma [2345-7] 06/22/2025 01:01 PM 132 mg/dL N Blood chemistry[[id number]] Glucose [Mass/volume] in Serum or Plasma [2345-7] 06/22/2025 10:02 AM 134 mg/dL N Blood chemistry[[id number]] Glucose [Mass/volume] in Serum or Plasma [2345-7] 06/22/2025 08:14 AM 172 mg/dL N Blood chemistry[[id number]] Glucose [Mass/volume] in Serum or Plasma [2345-7] 06/21/2025 03:11 PM 165 mg/dL N Blood chemistry[[id number]] Glucose [Mass/volume] in Serum or Plasma [2345-7] 06/21/2025 01:13 PM 118 mg/dL N Blood chemistry[[id number]] Glucose [Mass/volume] in Serum or Plasma [2345-7] 06/21/2025 10:45 AM 123 mg/dL N Blood chemistry[[id number]] Glucose [Mass/volume] in Serum or Plasma [2345-7] 06/21/2025 08:20 AM 173 mg/dL N Blood chemistry[[id number]] Glucose [Mass/volume] in Serum or Plasma [2345-7] 06/20/2025 03:30 PM 119 mg/dL N Blood chemistry[[id number]] Glucose [Mass/volume] in Serum or Plasma [2345-7] 06/20/2025 03:17 PM 162 mg/dL N Blood chemistry[[id number]] Glucose [Mass/volume] in Serum or Plasma [2345-7] 06/20/2025 10:15 AM 125 mg/dL N Blood chemistry[[id number]] Glucose [Mass/volume] in Serum or Plasma [2345-7] 06/20/2025 08:51 AM 168 mg/dL N Blood chemistry[[id number]] Glucose [Mass/volume] in Serum or Plasma [2345-7] 06/19/2025 03:35 PM 175 mg/dL N Blood chemistry[[id number]] Glucose [Mass/volume] in Serum or Plasma [2345-7] 06/19/2025 02:03 PM 245 mg/dL N Blood chemistry[[id number]] Glucose [Mass/volume] in Serum or Plasma [2345-7] 06/19/2025 10:33 AM 150 mg/dL N Blood chemistry[[id number]] Glucose [Mass/volume] in Serum or Plasma [2345-7] 06/19/2025 08:57 AM 250 mg/dL N Blood chemistry[[id number]] Glucose [Mass/volume] in Serum or Plasma [2345-7] 06/18/2025 03:36 PM 170 mg/dL N Blood chemistry[[id number]] Glucose [Mass/volume] in Serum or Plasma [2345-7] 06/18/2025 02:06 PM 283 mg/dL N Blood chemistry[[id number]] Glucose [Mass/volume] in Serum or Plasma [2345-7] 06/18/2025 09:36 AM 126 mg/dL N Blood chemistry[[id number]] Glucose [Mass/volume] in Serum or Plasma [2345-7] 06/18/2025 08:40 AM 173 mg/dL N Blood chemistry[[id number]] Glucose [Mass/volume] in Serum or Plasma [2345-7] 06/17/2025 04:01 PM 174 mg/dL N Blood chemistry[[id number]] Glucose [Mass/volume] in Serum or Plasma [2345-7] 06/17/2025 02:45 PM 296 mg/dL N Blood chemistry[[id number]] Glucose [Mass/volume] in Serum or Plasma [2345-7] 06/17/2025 02:29 PM 152 mg/dL N Blood chemistry[[id number]] Glucose [Mass/volume] in Serum or Plasma [2345-7] 06/17/2025 09:44 AM 151 mg/dL N Blood chemistry[[id number]] Glucose [Mass/volume] in Serum or Plasma [2345-7] 06/17/2025 08:53 AM 201 mg/dL N Blood chemistry[[id number]] Glucose [Mass/volume] in Serum or Plasma [2345-7] 06/16/2025 03:44 PM 171 mg/dL N Blood chemistry[[id number]] Glucose [Mass/volume] in Serum or Plasma [2345-7] 06/16/2025 10:19 AM 113 mg/dL N Blood chemistry[[id number]] Glucose [Mass/volume] in Serum or Plasma [2345-7] 06/16/2025 08:23 AM 216 mg/dL N Blood chemistry[[id number]] Glucose [Mass/volume] in Serum or Plasma [2345-7] 06/15/2025 02:26 PM 134 mg/dL N Blood chemistry[[id number]] Glucose [Mass/volume] in Serum or Plasma [2345-7] 06/15/2025 12:55 PM 210 mg/dL N Blood chemistry[[id number]] Glucose [Mass/volume] in Serum or Plasma [2345-7] 06/15/2025 08:15 AM 135 mg/dL N Blood chemistry[[id number]] Glucose [Mass/volume] in Serum or Plasma [2345-7] 06/15/2025 08:05 AM 190 mg/dL N Blood chemistry[[id number]] Glucose [Mass/volume] in Serum or Plasma [2345-7] 06/14/2025 03:48 PM 142 mg/dL N Blood chemistry[[id number]] Glucose [Mass/volume] in Serum or Plasma [2345-7] 06/14/2025 02:49 PM 113 mg/dL N Blood chemistry[[id number]] Glucose [Mass/volume] in Serum or Plasma [2345-7] 06/14/2025 09:41 AM 122 mg/dL N Blood chemistry[[id number]] Glucose [Mass/volume] in Serum or Plasma [2345-7] 06/14/2025 08:55 AM 143 mg/dL N Blood chemistry[[id number]] Glucose [Mass/volume] in Serum or Plasma [2345-7] 06/13/2025 03:13 PM 272 mg/dL N Blood chemistry[[id number]] Glucose [Mass/volume] in Serum or Plasma [2345-7] 06/13/2025 01:57 PM 232 mg/dL N Blood chemistry[[id number]] Glucose [Mass/volume] in Serum or Plasma [2345-7] 06/13/2025 09:48 AM 180 mg/dL N Blood chemistry[[id number]] Glucose [Mass/volume] in Serum or Plasma [2345-7] 06/13/2025 08:27 AM 276 mg/dL N Blood chemistry[[id number]] Glucose [Mass/volume] in Serum or Plasma [2345-7] 06/12/2025 02:48 PM 253 mg/dL N Blood chemistry[[id number]] Glucose [Mass/volume] in Serum or Plasma [2345-7] 06/12/2025 02:39 PM 150 mg/dL N Blood chemistry[[id number]] Glucose [Mass/volume] in Serum or Plasma [2345-7] 06/12/2025 10:21 AM 143 mg/dL N Blood chemistry[[id number]] Glucose [Mass/volume] in Serum or Plasma [2345-7] 06/12/2025 08:34 AM 150 mg/dL N Blood chemistry[[id number]] Glucose [Mass/volume] in Serum or Plasma [2345-7] 06/11/2025 02:35 PM 211 mg/dL N Blood chemistry[[id number]] Glucose [Mass/volume] in Serum or Plasma [2345-7] 06/11/2025 02:10 PM 130 mg/dL N Blood chemistry[[id number]] Glucose [Mass/volume] in Serum or Plasma [2345-7] 06/11/2025 09:36 AM 123 mg/dL N Blood chemistry[[id number]] Glucose [Mass/volume] in Serum or Plasma [2345-7] 06/11/2025 08:11 AM 138 mg/dL N Blood chemistry[[id number]] Glucose [Mass/volume] in Serum or Plasma [2345-7] 06/10/2025 03:20 PM 151 mg/dL N Blood chemistry[[id number]] Glucose [Mass/volume] in Serum or Plasma [2345-7] 06/10/2025 12:21 PM 288 mg/dL N Blood chemistry[[id number]] Glucose [Mass/volume] in Serum or Plasma [2345-7] 06/10/2025 10:16 AM 142 mg/dL N Blood chemistry[[id number]] Glucose [Mass/volume] in Serum or Plasma [2345-7] 06/10/2025 08:15 AM 214 mg/dL N Blood chemistry[[id number]] Glucose [Mass/volume] in Serum or Plasma [2345-7] 06/09/2025 03:31 PM 157 mg/dL N Blood chemistry[[id number]] Glucose [Mass/volume] in Serum or Plasma [2345-7] 06/09/2025 02:13 PM 146 mg/dL N Blood chemistry[[id number]] Glucose [Mass/volume] in Serum or Plasma [2345-7] 06/09/2025 08:59 AM 138 mg/dL N Blood chemistry[[id number]] Glucose [Mass/volume] in Serum or Plasma [2345-7] 06/09/2025 08:53 AM 133 mg/dL N Blood chemistry[[id number]] Glucose [Mass/volume] in Serum or Plasma [2345-7] 06/08/2025 04:08 PM 180 mg/dL N Blood chemistry[[id number]] Glucose [Mass/volume] in Serum or Plasma [2345-7] 06/08/2025 01:22 PM 226 mg/dL N Blood chemistry[[id number]] Glucose [Mass/volume] in Serum or Plasma [2345-7] 06/08/2025 09:23 AM 163 mg/dL N Blood chemistry[[id number]] Glucose [Mass/volume] in Serum or Plasma [2345-7] 06/08/2025 08:29 AM 183 mg/dL N Blood chemistry[[id number]] Glucose [Mass/volume] in Serum or Plasma [2345-7] 06/07/2025 02:59 PM 186 mg/dL N Blood chemistry[[id number]] Glucose [Mass/volume] in Serum or Plasma [2345-7] 06/07/2025 01:19 PM 315 mg/dL N Blood chemistry[[id number]] Glucose [Mass/volume] in Serum or Plasma [2345-7] 06/07/2025 09:43 AM 157 mg/dL N Blood chemistry[[id number]] Glucose [Mass/volume] in Serum or Plasma [2345-7] 06/07/2025 08:40 AM 248 mg/dL N Blood chemistry[[id number]] Glucose [Mass/volume] in Serum or Plasma [2345-7] 06/06/2025 02:10 PM 191 mg/dL N Blood chemistry[[id number]] Glucose [Mass/volume] in Serum or Plasma [2345-7] 06/06/2025 12:52 PM 240 mg/dL N Blood chemistry[[id number]] Glucose [Mass/volume] in Serum or Plasma [2345-7] 06/06/2025 10:43 AM 181 mg/dL N Blood chemistry[[id number]] Glucose [Mass/volume] in Serum or Plasma [2345-7] 06/06/2025 08:32 AM 218 mg/dL N Blood chemistry[[id number]] Glucose [Mass/volume] in Serum or Plasma [2345-7] 06/05/2025 03:37 PM 206 mg/dL N Blood chemistry[[id number]] Glucose [Mass/volume] in Serum or Plasma [2345-7] 06/05/2025 01:32 PM 167 mg/dL N Blood chemistry[[id number]] Glucose [Mass/volume] in Serum or Plasma [2345-7] 06/05/2025 10:13 AM 157 mg/dL N Blood chemistry[[id number]] Glucose [Mass/volume] in Serum or Plasma [2345-7] 06/05/2025 07:48 AM 159 mg/dL N Blood chemistry[[id number]] Glucose [Mass/volume] in Serum or Plasma [2345-7] 06/04/2025 03:16 PM 195 mg/dL N Blood chemistry[[id number]] Glucose [Mass/volume] in Serum or Plasma [2345-7] 06/04/2025 01:35 PM 137 mg/dL N Blood chemistry[[id number]] Glucose [Mass/volume] in Serum or Plasma [2345-7] 06/04/2025 10:27 AM 155 mg/dL N Blood chemistry[[id number]] Glucose [Mass/volume] in Serum or Plasma [2345-7] 06/04/2025 08:55 AM 249 mg/dL N Blood chemistry[[id number]] Glucose [Mass/volume] in Serum or Plasma [2345-7] 06/03/2025 03:33 PM 145 mg/dL N Blood chemistry[[id number]] Glucose [Mass/volume] in Serum or Plasma [2345-7] 06/03/2025 03:05 PM 132 mg/dL N Blood chemistry[[id number]] Glucose [Mass/volume] in Serum or Plasma [2345-7] 06/03/2025 09:43 AM 138 mg/dL N Blood chemistry[[id number]] Glucose [Mass/volume] in Serum or Plasma [2345-7] 06/03/2025 09:13 AM 172 mg/dL N Blood chemistry[[id number]] Glucose [Mass/volume] in Serum or Plasma [2345-7] 06/02/2025 04:09 PM 134 mg/dL N Blood chemistry[[id number]] Glucose [Mass/volume] in Serum or Plasma [2345-7] 06/02/2025 01:13 PM 140 mg/dL N Blood chemistry[[id number]] Glucose [Mass/volume] in Serum or Plasma [2345-7] 06/02/2025 09:32 AM 140 mg/dL N Blood chemistry[[id number]] Glucose [Mass/volume] in Serum or Plasma [2345-7] 06/02/2025 08:08 AM 134 mg/dL N Blood chemistry[[id number]] Glucose [Mass/volume] in Serum or Plasma [2345-7] 06/01/2025 02:57 PM 136 mg/dL N Blood chemistry[[id number]] Glucose [Mass/volume] in Serum or Plasma [2345-7] 06/01/2025 02:45 PM 163 mg/dL N Blood chemistry[[id number]] Glucose [Mass/volume] in Serum or Plasma [2345-7] 06/01/2025 09:44 AM 118 mg/dL N Blood chemistry[[id number]] Glucose [Mass/volume] in Serum or Plasma [2345-7] 06/01/2025 08:27 AM 144 mg/dL N Blood chemistry[[id number]] Glucose [Mass/volume] in Serum or Plasma [2345-7] 05/31/2025 03:20 PM 182 mg/dL N Blood chemistry[[id number]] Glucose [Mass/volume] in Serum or Plasma [2345-7] 05/31/2025 01:57 PM 162 mg/dL N Blood chemistry[[id number]] Glucose [Mass/volume] in Serum or Plasma [2345-7] 05/31/2025 10:57 AM 151 mg/dL N Blood chemistry[[id number]] Glucose [Mass/volume] in Serum or Plasma [2345-7] 05/31/2025 08:55 AM 252 mg/dL N Blood chemistry[[id number]] Glucose [Mass/volume] in Serum or Plasma [2345-7] 05/30/2025 03:30 PM 159 mg/dL N Blood chemistry[[id number]] Glucose [Mass/volume] in Serum or Plasma [2345-7] 05/30/2025 10:20 AM 108 mg/dL N Blood chemistry[[id number]] Glucose [Mass/volume] in Serum or Plasma [2345-7] 05/30/2025 08:41 AM 131 mg/dL N Blood chemistry[[id number]] Glucose [Mass/volume] in Serum or Plasma [2345-7] 05/29/2025 02:54 PM 116 mg/dL N Blood chemistry[[id number]] Glucose [Mass/volume] in Serum or Plasma [2345-7] 05/29/2025 12:49 PM 123 mg/dL N Blood chemistry[[id number]] Glucose [Mass/volume] in Serum or Plasma [2345-7] 05/29/2025 08:29 AM 173 mg/dL N Blood chemistry[[id number]] Glucose [Mass/volume] in Serum or Plasma [2345-7] 05/29/2025 08:15 AM 104 mg/dL N Blood chemistry[[id number]] Glucose [Mass/volume] in Serum or Plasma [2345-7] 05/28/2025 02:59 PM 162 mg/dL N Blood chemistry[[id number]] Glucose [Mass/volume] in Serum or Plasma [2345-7] 05/28/2025 12:56 PM 230 mg/dL N Blood chemistry[[id number]] Glucose [Mass/volume] in Serum or Plasma [2345-7] 05/28/2025 08:20 AM 168 mg/dL N Blood chemistry[[id number]] Glucose [Mass/volume] in Serum or Plasma [2345-7] 05/28/2025 07:56 AM 114 mg/dL N Blood chemistry[[id number]] Glucose [Mass/volume] in Serum or Plasma [2345-7] 05/27/2025 03:14 PM 196 mg/dL N Blood chemistry[[id number]] Glucose [Mass/volume] in Serum or Plasma [2345-7] 05/27/2025 01:03 PM 262 mg/dL N Blood chemistry[[id number]] Glucose [Mass/volume] in Serum or Plasma [2345-7] 05/27/2025 10:41 AM 111 mg/dL N Blood chemistry[[id number]] Glucose [Mass/volume] in Serum or Plasma [2345-7] 05/27/2025 08:18 AM 235 mg/dL N Blood chemistry[[id number]] Glucose [Mass/volume] in Serum or Plasma [2345-7] 05/26/2025 03:31 PM 158 mg/dL N Blood chemistry[[id number]] Glucose [Mass/volume] in Serum or Plasma [2345-7] 05/26/2025 01:42 PM 164 mg/dL N Blood chemistry[[id number]] Glucose [Mass/volume] in Serum or Plasma [2345-7] 05/26/2025 09:54 AM 108 mg/dL N Blood chemistry[[id number]] Glucose [Mass/volume] in Serum or Plasma [2345-7] 05/26/2025 07:48 AM 147 mg/dL N Blood chemistry[[id number]] Glucose [Mass/volume] in Serum or Plasma [2345-7] 05/25/2025 02:52 PM 152 mg/dL N Blood chemistry[[id number]] Glucose [Mass/volume] in Serum or Plasma [2345-7] 05/25/2025 12:56 PM 148 mg/dL N Blood chemistry[[id number]] Glucose [Mass/volume] in Serum or Plasma [2345-7] 05/25/2025 12:48 PM 125 mg/dL N Blood chemistry[[id number]] Glucose [Mass/volume] in Serum or Plasma [2345-7] 05/25/2025 08:16 AM 131 mg/dL N Blood chemistry[[id number]] Glucose [Mass/volume] in Serum or Plasma [2345-7] 05/24/2025 03:22 PM 174 mg/dL N Blood chemistry[[id number]] Glucose [Mass/volume] in Serum or Plasma [2345-7] 05/24/2025 01:04 PM 229 mg/dL N Blood chemistry[[id number]] Glucose [Mass/volume] in Serum or Plasma [2345-7] 05/24/2025 10:28 AM 110 mg/dL N Blood chemistry[[id number]] Glucose [Mass/volume] in Serum or Plasma [2345-7] 05/24/2025 08:17 AM 223 mg/dL N Blood chemistry[[id number]] Glucose [Mass/volume] in Serum or Plasma [2345-7] 05/23/2025 03:13 PM 315 mg/dL N Blood chemistry[[id number]] Glucose [Mass/volume] in Serum or Plasma [2345-7] 05/23/2025 11:22 AM 178 mg/dL N Blood chemistry[[id number]] Glucose [Mass/volume] in Serum or Plasma [2345-7] 05/23/2025 10:08 AM 150 mg/dL N Blood chemistry[[id number]] Glucose [Mass/volume] in Serum or Plasma [2345-7] 05/23/2025 08:51 AM 212 mg/dL N Blood chemistry[[id number]] Glucose [Mass/volume] in Serum or Plasma [2345-7] 05/22/2025 03:47 PM 155 mg/dL N Blood chemistry[[id number]] Glucose [Mass/volume] in Serum or Plasma [2345-7] 05/22/2025 02:15 PM 147 mg/dL N Blood chemistry[[id number]] Glucose [Mass/volume] in Serum or Plasma [2345-7] 05/22/2025 10:25 AM 161 mg/dL N Blood chemistry[[id number]] Glucose [Mass/volume] in Serum or Plasma [2345-7] 05/22/2025 08:15 AM 203 mg/dL N Blood chemistry[[id number]] Glucose [Mass/volume] in Serum or Plasma [2345-7] 05/21/2025 03:36 PM 140 mg/dL N Blood chemistry[[id number]] Glucose [Mass/volume] in Serum or Plasma [2345-7] 05/21/2025 01:40 PM 143 mg/dL N Blood chemistry[[id number]] Glucose [Mass/volume] in Serum or Plasma [2345-7] 05/21/2025 08:36 AM 236 mg/dL N Blood chemistry[[id number]] Glucose [Mass/volume] in Serum or Plasma [2345-7] 05/21/2025 08:17 AM 117 mg/dL N Blood chemistry[[id number]] Glucose [Mass/volume] in Serum or Plasma [2345-7] 05/20/2025 02:54 PM 117 mg/dL N Blood chemistry[[id number]] Glucose [Mass/volume] in Serum or Plasma [2345-7] 05/20/2025 01:37 PM 167 mg/dL N Blood chemistry[[id number]] Glucose [Mass/volume] in Serum or Plasma [2345-7] 05/20/2025 09:39 AM 117 mg/dL N Blood chemistry[[id number]] Glucose [Mass/volume] in Serum or Plasma [2345-7] 05/20/2025 08:54 AM 154 mg/dL N Blood chemistry[[id number]] Glucose [Mass/volume] in Serum or Plasma [2345-7] 05/19/2025 03:09 PM 321 mg/dL N Blood chemistry[[id number]] Glucose [Mass/volume] in Serum or Plasma [2345-7] 05/19/2025 01:50 PM 144 mg/dL N Blood chemistry[[id number]] Glucose [Mass/volume] in Serum or Plasma [2345-7] 05/19/2025 08:22 AM 217 mg/dL N Blood chemistry[[id number]] Glucose [Mass/volume] in Serum or Plasma [2345-7] 05/19/2025 07:52 AM 239 mg/dL N Blood chemistry[[id number]] Glucose [Mass/volume] in Serum or Plasma [2345-7] 05/18/2025 03:15 PM 192 mg/dL N Blood chemistry[[id number]] Glucose [Mass/volume] in Serum or Plasma [2345-7] 05/18/2025 01:42 PM 266 mg/dL N Blood chemistry[[id number]] Glucose [Mass/volume] in Serum or Plasma [2345-7] 05/18/2025 09:44 AM 167 mg/dL N Blood chemistry[[id number]] Glucose [Mass/volume] in Serum or Plasma [2345-7] 05/18/2025 08:18 AM 213 mg/dL N Blood chemistry[[id number]] Glucose [Mass/volume] in Serum or Plasma [2345-7] 05/17/2025 03:18 PM 228 mg/dL N Blood chemistry[[id number]] Glucose [Mass/volume] in Serum or Plasma [2345-7] 05/17/2025 02:58 PM 184 mg/dL N Blood chemistry[[id number]] Glucose [Mass/volume] in Serum or Plasma [2345-7] 05/17/2025 10:38 AM 116 mg/dL N Blood chemistry[[id number]] Glucose [Mass/volume] in Serum or Plasma [2345-7] 05/17/2025 09:28 AM 222 mg/dL N Blood chemistry[[id number]] Glucose [Mass/volume] in Serum or Plasma [2345-7] 05/16/2025 03:07 PM 170 mg/dL N Blood chemistry[[id number]] Glucose [Mass/volume] in Serum or Plasma [2345-7] 05/16/2025 01:33 PM 169 mg/dL N Blood chemistry[[id number]] Glucose [Mass/volume] in Serum or Plasma [2345-7] 05/16/2025 11:29 AM 117 mg/dL N Blood chemistry[[id number]] Glucose [Mass/volume] in Serum or Plasma [2345-7] 05/16/2025 08:15 AM 260 mg/dL N Blood chemistry[[id number]] Glucose [Mass/volume] in Serum or Plasma [2345-7] 05/15/2025 01:41 PM 219 mg/dL N Blood chemistry[[id number]] Glucose [Mass/volume] in Serum or Plasma [2345-7] 05/15/2025 01:00 PM 175 mg/dL N Blood chemistry[[id number]] Glucose [Mass/volume] in Serum or Plasma [2345-7] 05/15/2025 10:40 AM 132 mg/dL N Blood chemistry[[id number]] Glucose [Mass/volume] in Serum or Plasma [2345-7] 05/15/2025 08:22 AM 260 mg/dL N Blood chemistry[[id number]] Glucose [Mass/volume] in Serum or Plasma [2345-7] 05/14/2025 03:29 PM 161 mg/dL N Blood chemistry[[id number]] Glucose [Mass/volume] in Serum or Plasma [2345-7] 05/14/2025 01:25 PM 180 mg/dL N Blood chemistry[[id number]] Glucose [Mass/volume] in Serum or Plasma [2345-7] 05/14/2025 10:24 AM 135 mg/dL N Blood chemistry[[id number]] Glucose [Mass/volume] in Serum or Plasma [2345-7] 05/14/2025 08:11 AM 149 mg/dL N Blood chemistry[[id number]] Glucose [Mass/volume] in Serum or Plasma [2345-7] 05/13/2025 03:19 PM 200 mg/dL N Blood chemistry[[id number]] Glucose [Mass/volume] in Serum or Plasma [2345-7] 05/13/2025 01:09 PM 125 mg/dL N Blood chemistry[[id number]] Glucose [Mass/volume] in Serum or Plasma [2345-7] 05/13/2025 10:06 AM 125 mg/dL N Blood chemistry[[id number]] Glucose [Mass/volume] in Serum or Plasma [2345-7] 05/13/2025 08:20 AM 220 mg/dL N Blood chemistry[[id number]] Glucose [Mass/volume] in Serum or Plasma [2345-7] 05/12/2025 03:30 PM 182 mg/dL N Blood chemistry[[id number]] Glucose [Mass/volume] in Serum or Plasma [2345-7] 05/12/2025 02:11 PM 167 mg/dL N Blood chemistry[[id number]] Glucose [Mass/volume] in Serum or Plasma [2345-7] 05/12/2025 09:40 AM 160 mg/dL N Blood chemistry[[id number]] Glucose [Mass/volume] in Serum or Plasma [2345-7] 05/12/2025 08:11 AM 166 mg/dL N Blood chemistry[[id number]] Glucose [Mass/volume] in Serum or Plasma [2345-7] 05/11/2025 02:42 PM 134 mg/dL N Blood chemistry[[id number]] Glucose [Mass/volume] in Serum or Plasma [2345-7] 05/11/2025 01:24 PM 211 mg/dL N Blood chemistry[[id number]] Glucose [Mass/volume] in Serum or Plasma [2345-7] 05/11/2025 10:24 AM 124 mg/dL N Blood chemistry[[id number]] Glucose [Mass/volume] in Serum or Plasma [2345-7] 05/11/2025 08:19 AM 212 mg/dL N Blood chemistry[[id number]] Glucose [Mass/volume] in Serum or Plasma [2345-7] 05/10/2025 03:29 PM 182 mg/dL N Blood chemistry[[id number]] Glucose [Mass/volume] in Serum or Plasma [2345-7] 05/10/2025 12:42 PM 195 mg/dL N Blood chemistry[[id number]] Glucose [Mass/volume] in Serum or Plasma [2345-7] 05/10/2025 08:12 AM 318 mg/dL N Blood chemistry[[id number]] Glucose [Mass/volume] in Serum or Plasma [2345-7] 05/10/2025 07:30 AM 134 mg/dL N Blood chemistry[[id number]] Glucose [Mass/volume] in Serum or Plasma [2345-7] 05/09/2025 11:49 AM 124 mg/dL N Blood chemistry[[id number]] Glucose [Mass/volume] in Serum or Plasma [2345-7] 05/09/2025 10:08 AM 122 mg/dL N Blood chemistry[[id number]] Glucose [Mass/volume] in Serum or Plasma [2345-7] 05/09/2025 08:23 AM 177 mg/dL N Blood chemistry[[id number]] Glucose [Mass/volume] in Serum or Plasma [2345-7] 05/08/2025 03:35 PM 168 mg/dL N Blood chemistry[[id number]] Glucose [Mass/volume] in Serum or Plasma [2345-7] 05/08/2025 12:05 PM 146 mg/dL N Blood chemistry[[id number]] Glucose [Mass/volume] in Serum or Plasma [2345-7] 05/08/2025 10:11 AM 158 mg/dL N Blood chemistry[[id number]] Glucose [Mass/volume] in Serum or Plasma [2345-7] 05/08/2025 08:17 AM 211 mg/dL N Blood chemistry[[id number]] Glucose [Mass/volume] in Serum or Plasma [2345-7] 05/07/2025 03:17 PM 208 mg/dL N Blood chemistry[[id number]] Glucose [Mass/volume] in Serum or Plasma [2345-7] 05/07/2025 02:22 PM 143 mg/dL N Blood chemistry[[id number]] Glucose [Mass/volume] in Serum or Plasma [2345-7] 05/07/2025 10:11 AM 93 mg/dL N Blood chemistry[[id number]] Glucose [Mass/volume] in Serum or Plasma [2345-7] 05/07/2025 08:13 AM 153 mg/dL N Blood chemistry[[id number]] Glucose [Mass/volume] in Serum or Plasma [2345-7] 05/06/2025 02:39 PM 169 mg/dL N Blood chemistry[[id number]] Glucose [Mass/volume] in Serum or Plasma [2345-7] 05/06/2025 02:10 PM 133 mg/dL N Blood chemistry[[id number]] Glucose [Mass/volume] in Serum or Plasma [2345-7] 05/06/2025 10:26 AM 137 mg/dL N Blood chemistry[[id number]] Glucose [Mass/volume] in Serum or Plasma [2345-7] 05/06/2025 09:32 AM 147 mg/dL N Blood chemistry[[id number]] Glucose [Mass/volume] in Serum or Plasma [2345-7] 05/05/2025 03:09 PM 177 mg/dL N Blood chemistry[[id number]] Glucose [Mass/volume] in Serum or Plasma [2345-7] 05/05/2025 12:46 PM 184 mg/dL N Blood chemistry[[id number]] Glucose [Mass/volume] in Serum or Plasma [2345-7] 05/05/2025 10:10 AM 128 mg/dL N Blood chemistry[[id number]] Glucose [Mass/volume] in Serum or Plasma [2345-7] 05/05/2025 08:20 AM 449 mg/dL N Blood chemistry[[id number]] Glucose [Mass/volume] in Serum or Plasma [2345-7] 05/04/2025 02:55 PM 200 mg/dL N Blood chemistry[[id number]] Glucose [Mass/volume] in Serum or Plasma [2345-7] 05/04/2025 12:42 PM 282 mg/dL N Blood chemistry[[id number]] Glucose [Mass/volume] in Serum or Plasma [2345-7] 05/04/2025 09:34 AM 110 mg/dL N Blood chemistry[[id number]] Glucose [Mass/volume] in Serum or Plasma [2345-7] 05/04/2025 08:31 AM 166 mg/dL N Blood chemistry[[id number]] Glucose [Mass/volume] in Serum or Plasma [2345-7] 05/03/2025 03:10 PM 273 mg/dL N Blood chemistry[[id number]] Glucose [Mass/volume] in Serum or Plasma [2345-7] 05/03/2025 01:49 PM 239 mg/dL N Blood chemistry[[id number]] Glucose [Mass/volume] in Serum or Plasma [2345-7] 05/03/2025 10:01 AM 110 mg/dL N Blood chemistry[[id number]] Glucose [Mass/volume] in Serum or Plasma [2345-7] 05/03/2025 08:28 AM 176 mg/dL N Blood chemistry[[id number]] Glucose [Mass/volume] in Serum or Plasma [2345-7] 05/02/2025 02:50 PM 191 mg/dL N Blood chemistry[[id number]] Glucose [Mass/volume] in Serum or Plasma [2345-7] 05/02/2025 12:45 PM 185 mg/dL N Blood chemistry[[id number]] Glucose [Mass/volume] in Serum or Plasma [2345-7] 05/02/2025 09:37 AM 132 mg/dL N Blood chemistry[[id number]] Glucose [Mass/volume] in Serum or Plasma [2345-7] 05/02/2025 08:32 AM 180 mg/dL N Blood chemistry[[id number]] Glucose [Mass/volume] in Serum or Plasma [2345-7] 05/01/2025 04:22 PM 145 mg/dL N Blood chemistry[[id number]] Glucose [Mass/volume] in Serum or Plasma [2345-7] 05/01/2025 02:55 PM 157 mg/dL N Blood chemistry[[id number]] Glucose [Mass/volume] in Serum or Plasma [2345-7] 05/01/2025 12:04 PM 187 mg/dL N Blood chemistry[[id number]] Glucose [Mass/volume] in Serum or Plasma [2345-7] 05/01/2025 09:54 AM 118 mg/dL N Blood chemistry[[id number]] Glucose [Mass/volume] in Serum or Plasma [2345-7] 05/01/2025 07:46 AM 235 mg/dL N Blood chemistry[[id number]] Glucose [Mass/volume] in Serum or Plasma [2345-7] 04/30/2025 02:45 PM 122 mg/dL N Blood chemistry[[id number]] Glucose [Mass/volume] in Serum or Plasma [2345-7] 04/30/2025 10:03 AM 287 mg/dL N Blood chemistry[[id number]] Glucose [Mass/volume] in Serum or Plasma [2345-7] 04/30/2025 07:46 AM 149 mg/dL N Blood chemistry[[id number]] Glucose [Mass/volume] in Serum or Plasma [2345-7] 04/29/2025 03:00 PM 224 mg/dL N Blood chemistry[[id number]] Glucose [Mass/volume] in Serum or Plasma [2345-7] 04/29/2025 11:32 AM 180 mg/dL N Blood chemistry[[id number]] Glucose [Mass/volume] in Serum or Plasma [2345-7] 04/29/2025 08:20 AM 121 mg/dL N Blood chemistry[[id number]] Glucose [Mass/volume] in Serum or Plasma [2345-7] 04/29/2025 07:50 AM 173 mg/dL N Blood chemistry[[id number]] Glucose [Mass/volume] in Serum or Plasma [2345-7] 04/28/2025 02:06 PM 302 mg/dL N Blood chemistry[[id number]] Glucose [Mass/volume] in Serum or Plasma [2345-7] 04/28/2025 08:34 AM 149 mg/dL N Blood chemistry[[id number]] Glucose [Mass/volume] in Serum or Plasma [2345-7] 04/24/2025 03:37 PM 200 mg/dL N Blood chemistry[[id number]] Glucose [Mass/volume] in Serum or Plasma [2345-7] 04/24/2025 10:25 AM 164 mg/dL N Blood chemistry[[id number]] Glucose [Mass/volume] in Serum or Plasma [2345-7] 04/24/2025 08:27 AM 161 mg/dL N Blood chemistry[[id number]] Glucose [Mass/volume] in Serum or Plasma [2345-7] 04/23/2025 03:40 PM 249 mg/dL N Blood chemistry[[id number]] Glucose [Mass/volume] in Serum or Plasma [2345-7] 04/23/2025 01:48 PM 137 mg/dL N Blood chemistry[[id number]] Glucose [Mass/volume] in Serum or Plasma [2345-7] 04/23/2025 08:37 AM 174 mg/dL N Blood chemistry[[id number]] Glucose [Mass/volume] in Serum or Plasma [2345-7] 04/23/2025 07:46 AM 213 mg/dL N Blood chemistry[[id number]] Glucose [Mass/volume] in Serum or Plasma [2345-7] 04/22/2025 02:21 PM 255 mg/dL N Blood chemistry[[id number]] Glucose [Mass/volume] in Serum or Plasma [2345-7] 04/22/2025 12:27 PM 240 mg/dL N Blood chemistry[[id number]] Glucose [Mass/volume] in Serum or Plasma [2345-7] 04/22/2025 09:22 AM 354 mg/dL N Blood chemistry[] Glucose [Mass/volume] in Serum or Plasma [2345-7] 04/22/2025 07:57 AM 147 mg/dL N Blood chemistry[] Glucose [Mass/volume] in Serum or Plasma [2345-7] 04/21/2025 03:29 PM 186 mg/dL N Blood chemistry[[id number]] Glucose [Mass/volume] in Serum or Plasma [2345-7] 04/21/2025 09:51 AM 170 mg/dL N Blood chemistry[[id number]] Glucose [Mass/volume] in Serum or Plasma [2345-7] 04/20/2025 01:46 PM 216 mg/dL N Blood chemistry[[id number]] Glucose [Mass/volume] in Serum or Plasma [2345-7] 04/20/2025 01:17 PM 234 mg/dL N Blood chemistry[[id number]] Glucose [Mass/volume] in Serum or Plasma [2345-7] 04/20/2025 08:09 AM 144 mg/dL N Blood chemistry[[id number]] Glucose [Mass/volume] in Serum or Plasma [2345-7] 04/20/2025 07:26 AM 199 mg/dL N Blood chemistry[[id number]] Glucose [Mass/volume] in Serum or Plasma [2345-7] 04/19/2025 03:26 PM 194 mg/dL N Blood chemistry[[id number]] Glucose [Mass/volume] in Serum or Plasma [2345-7] 04/19/2025 02:47 PM 134 mg/dL N Blood chemistry[[id number]] Glucose [Mass/volume] in Serum or Plasma [2345-7] 04/19/2025 09:31 AM 124 mg/dL N Blood chemistry[[id number]] Glucose [Mass/volume] in Serum or Plasma [2345-7] 04/19/2025 08:13 AM 241 mg/dL N Blood chemistry[[id number]] Glucose [Mass/volume] in Serum or Plasma [2345-7] 04/18/2025 03:12 PM 139 mg/dL N Blood chemistry[[id number]] Glucose [Mass/volume] in Serum or Plasma [2345-7] 04/18/2025 01:22 PM 177 mg/dL N Blood chemistry[[id number]] Glucose [Mass/volume] in Serum or Plasma [2345-7] 04/18/2025 08:24 AM 108 mg/dL N Blood chemistry[[id number]] Glucose [Mass/volume] in Serum or Plasma [2345-7] 04/18/2025 07:18 AM 324 mg/dL N Blood chemistry[[id number]] Glucose [Mass/volume] in Serum or Plasma [2345-7] 04/17/2025 03:01 PM 198 mg/dL N Blood chemistry[[id number]] Glucose [Mass/volume] in Serum or Plasma [2345-7] 04/17/2025 01:00 PM 181 mg/dL N Blood chemistry[[id number]] Glucose [Mass/volume] in Serum or Plasma [2345-7] 04/17/2025 07:50 AM 119 mg/dL N Blood chemistry[[id number]] Glucose [Mass/volume] in Serum or Plasma [2345-7] 04/17/2025 07:23 AM 187 mg/dL N Blood chemistry[[id number]] Glucose [Mass/volume] in Serum or Plasma [2345-7] 04/16/2025 01:39 PM 199 mg/dL N Blood chemistry[[id number]] Glucose [Mass/volume] in Serum or Plasma [2345-7] 04/16/2025 12:47 PM 153 mg/dL N Blood chemistry[[id number]] Glucose [Mass/volume] in Serum or Plasma [2345-7] 04/16/2025 08:28 AM 145 mg/dL N Blood chemistry[[id number]] Glucose [Mass/volume] in Serum or Plasma [2345-7] 04/16/2025 07:30 AM 191 mg/dL N Blood chemistry[[id number]] Glucose [Mass/volume] in Serum or Plasma [2345-7] 04/15/2025 03:34 PM 218 mg/dL N Blood chemistry[[id number]] Glucose [Mass/volume] in Serum or Plasma [2345-7] 04/15/2025 12:56 PM 172 mg/dL N Blood chemistry[[id number]] Glucose [Mass/volume] in Serum or Plasma [2345-7] 04/15/2025 09:19 AM 163 mg/dL N Blood chemistry[[id number]] Glucose [Mass/volume] in Serum or Plasma [2345-7] 04/15/2025 07:27 AM 332 mg/dL N Blood chemistry[[id number]] Glucose [Mass/volume] in Serum or Plasma [2345-7] 04/14/2025 03:27 PM 140 mg/dL N Blood chemistry[[id number]] Glucose [Mass/volume] in Serum or Plasma [2345-7] 04/14/2025 01:02 PM 139 mg/dL N Blood chemistry[[id number]] Glucose [Mass/volume] in Serum or Plasma [2345-7] 04/14/2025 09:20 AM 145 mg/dL N Blood chemistry[[id number]] Glucose [Mass/volume] in Serum or Plasma [2345-7] 04/14/2025 08:02 AM 129 mg/dL N Blood chemistry[[id number]] Glucose [Mass/volume] in Serum or Plasma [2345-7] 04/13/2025 01:29 PM 213 mg/dL N Blood chemistry[[id number]] Glucose [Mass/volume] in Serum or Plasma [2345-7] 04/13/2025 01:12 PM 287 mg/dL N Blood chemistry[[id number]] Glucose [Mass/volume] in Serum or Plasma [2345-7] 04/13/2025 11:27 AM 142 mg/dL N Blood chemistry[[id number]] Glucose [Mass/volume] in Serum or Plasma [2345-7] 04/13/2025 07:17 AM 249 mg/dL N Blood chemistry[[id number]] Glucose [Mass/volume] in Serum or Plasma [2345-7] 04/12/2025 03:41 PM 248 mg/dL N Blood chemistry[[id number]] Glucose [Mass/volume] in Serum or Plasma [2345-7] 04/12/2025 12:29 PM 153 mg/dL N Blood chemistry[[id number]] Glucose [Mass/volume] in Serum or Plasma [2345-7] 04/12/2025 07:51 AM 134 mg/dL N Blood chemistry[[id number]] Glucose [Mass/volume] in Serum or Plasma [2345-7] 04/12/2025 07:28 AM 180 mg/dL N Blood chemistry[[id number]] Glucose [Mass/volume] in Serum or Plasma [2345-7] 04/11/2025 02:27 PM 165 mg/dL N Blood chemistry[[id number]] Glucose [Mass/volume] in Serum or Plasma [2345-7] 04/11/2025 11:34 AM 325 mg/dL N Blood chemistry[[id number]] Glucose [Mass/volume] in Serum or Plasma [2345-7] 04/11/2025 09:07 AM 231 mg/dL N Blood chemistry[[id number]] Glucose [Mass/volume] in Serum or Plasma [2345-7] 04/11/2025 07:32 AM 202 mg/dL N Blood chemistry[[id number]] Glucose [Mass/volume] in Serum or Plasma [2345-7] 04/10/2025 03:23 PM 163 mg/dL N Blood chemistry[[id number]] Glucose [Mass/volume] in Serum or Plasma [2345-7] 04/10/2025 02:18 PM 154 mg/dL N Blood chemistry[[id number]] Glucose [Mass/volume] in Serum or Plasma [2345-7] 04/10/2025 09:30 AM 226 mg/dL N Blood chemistry[[id number]] Glucose [Mass/volume] in Serum or Plasma [2345-7] 04/10/2025 08:18 AM 189 mg/dL N Blood chemistry[[id number]] Glucose [Mass/volume] in Serum or Plasma [2345-7] 04/09/2025 03:10 PM 241 mg/dL N Blood chemistry[[id number]] Glucose [Mass/volume] in Serum or Plasma [2345-7] 04/09/2025 01:50 PM 113 mg/dL N Blood chemistry[[id number]] Glucose [Mass/volume] in Serum or Plasma [2345-7] 04/09/2025 09:57 AM 116 mg/dL N Blood chemistry[[id number]] Glucose [Mass/volume] in Serum or Plasma [2345-7] 04/09/2025 09:33 AM 167 mg/dL N Blood chemistry[[id number]] Glucose [Mass/volume] in Serum or Plasma [2345-7] 04/08/2025 01:37 PM 202 mg/dL N Blood chemistry[[id number]] Glucose [Mass/volume] in Serum or Plasma [2345-7] 04/08/2025 12:36 PM 191 mg/dL N Blood chemistry[[id number]] Glucose [Mass/volume] in Serum or Plasma [2345-7] 04/08/2025 09:02 AM 168 mg/dL N Blood chemistry[[id number]] Glucose [Mass/volume] in Serum or Plasma [2345-7] 04/08/2025 08:38 AM 167 mg/dL N Blood chemistry[[id number]] Glucose [Mass/volume] in Serum or Plasma [2345-7] 04/07/2025 03:32 PM 175 mg/dL N Blood chemistry[[id number]] Glucose [Mass/volume] in Serum or Plasma [2345-7] 04/07/2025 01:18 PM 193 mg/dL N Blood chemistry[[id number]] Glucose [Mass/volume] in Serum or Plasma [2345-7] 04/07/2025 09:14 AM 132 mg/dL N Blood chemistry[[id number]] Glucose [Mass/volume] in Serum or Plasma [2345-7] 04/07/2025 07:22 AM 187 mg/dL N Blood chemistry[[id number]] Glucose [Mass/volume] in Serum or Plasma [2345-7] 04/06/2025 03:06 PM 145 mg/dL N Blood chemistry[[id number]] Glucose [Mass/volume] in Serum or Plasma [2345-7] 04/06/2025 11:39 AM 158 mg/dL N Blood chemistry[[id number]] Glucose [Mass/volume] in Serum or Plasma [2345-7] 04/06/2025 09:25 AM 175 mg/dL N Blood chemistry[[id number]] Glucose [Mass/volume] in Serum or Plasma [2345-7] 04/06/2025 07:18 AM 183 mg/dL N Blood chemistry[[id number]] Glucose [Mass/volume] in Serum or Plasma [2345-7] 04/05/2025 03:28 PM 186 mg/dL N Blood chemistry[[id number]] Glucose [Mass/volume] in Serum or Plasma [2345-7] 04/05/2025 01:21 PM 134 mg/dL N Blood chemistry[[id number]] Glucose [Mass/volume] in Serum or Plasma [2345-7] 04/05/2025 09:17 AM 157 mg/dL N Blood chemistry[[id number]] Glucose [Mass/volume] in Serum or Plasma [2345-7] 04/05/2025 09:13 AM 132 mg/dL N Blood chemistry[[id number]] Glucose [Mass/volume] in Serum or Plasma [2345-7] 04/04/2025 03:10 PM 162 mg/dL N Blood chemistry[[id number]] Glucose [Mass/volume] in Serum or Plasma [2345-7] 04/04/2025 01:08 PM 156 mg/dL N Blood chemistry[[id number]] Glucose [Mass/volume] in Serum or Plasma [2345-7] 04/04/2025 10:37 AM 124 mg/dL N Blood chemistry[[id number]] Glucose [Mass/volume] in Serum or Plasma [2345-7] 04/04/2025 07:18 AM 314 mg/dL N Blood chemistry[[id number]] Glucose [Mass/volume] in Serum or Plasma [2345-7] 04/03/2025 02:15 PM 186 mg/dL N Blood chemistry[[id number]] Glucose [Mass/volume] in Serum or Plasma [2345-7] 04/03/2025 12:51 PM 143 mg/dL N Blood chemistry[[id number]] Glucose [Mass/volume] in Serum or Plasma [2345-7] 04/03/2025 07:47 AM 140 mg/dL N Blood chemistry[[id number]] Glucose [Mass/volume] in Serum or Plasma [2345-7] 04/03/2025 07:22 AM 224 mg/dL N Blood chemistry[[id number]] Glucose [Mass/volume] in Serum or Plasma [2345-7] 04/02/2025 12:20 PM 193 mg/dL N Blood chemistry[[id number]] Glucose [Mass/volume] in Serum or Plasma [2345-7] 02/28/2025 07:25 AM 177 mg/dL N Blood chemistry[[id number]] Glucose [Mass/volume] in Serum or Plasma [2345-7] 02/28/2025 03:49 PM 222 mg/dL N Blood chemistry[[id number]] Glucose [Mass/volume] in Serum or Plasma [2345-7] 02/28/2025 09:05 AM 136 mg/dL N Blood chemistry[[id number]] Glucose [Mass/volume] in Serum or Plasma [2345-7] 02/27/2025 12:53 PM 125 mg/dL N Blood chemistry[[id number]] Glucose [Mass/volume] in Serum or Plasma [2345-7] 02/27/2025 09:55 AM 146 mg/dL N Blood chemistry[[id number]] Glucose [Mass/volume] in Serum or Plasma [2345-7] 02/27/2025 03:48 PM 142 mg/dL N Blood chemistry[[id number]] Glucose [Mass/volume] in Serum or Plasma [2345-7] 02/27/2025 09:28 AM 129 mg/dL N Blood chemistry[[id number]] Glucose [Mass/volume] in Serum or Plasma [2345-7] 02/26/2025 12:48 PM 132 mg/dL N Blood chemistry[[id number]] Glucose [Mass/volume] in Serum or Plasma [2345-7] 02/26/2025 08:26 AM 143 mg/dL N Blood chemistry[[id number]] Glucose [Mass/volume] in Serum or Plasma [2345-7] 02/26/2025 03:23 PM 206 mg/dL N Blood chemistry[[id number]] Glucose [Mass/volume] in Serum or Plasma [2345-7] 02/26/2025 10:12 AM 111 mg/dL N Blood chemistry[[id number]] Glucose [Mass/volume] in Serum or Plasma [2345-7] 02/25/2025 02:57 PM 138 mg/dL N Blood chemistry[[id number]] Glucose [Mass/volume] in Serum or Plasma [2345-7] 02/25/2025 09:33 AM 187 mg/dL N Blood chemistry[[id number]] Glucose [Mass/volume] in Serum or Plasma [2345-7] 02/25/2025 01:41 PM 198 mg/dL N Blood chemistry[[id number]] Glucose [Mass/volume] in Serum or Plasma [2345-7] 02/25/2025 09:35 AM 112 mg/dL N Blood chemistry[[id number]] Glucose [Mass/volume] in Serum or Plasma [2345-7] 02/24/2025 02:46 PM 115 mg/dL N Blood chemistry[[id number]] Glucose [Mass/volume] in Serum or Plasma [2345-7] 02/24/2025 08:46 AM 137 mg/dL N Blood chemistry[[id number]] Glucose [Mass/volume] in Serum or Plasma [2345-7] 02/24/2025 03:19 PM 144 mg/dL N Blood chemistry[[id number]] Glucose [Mass/volume] in Serum or Plasma [2345-7] 02/24/2025 09:06 AM 120 mg/dL N Blood chemistry[[id number]] Glucose [Mass/volume] in Serum or Plasma [2345-7] 02/23/2025 02:03 PM 132 mg/dL N Blood chemistry[[id number]] Glucose [Mass/volume] in Serum or Plasma [2345-7] 02/23/2025 09:18 AM 145 mg/dL N Blood chemistry[[id number]] Glucose [Mass/volume] in Serum or Plasma [2345-7] 02/23/2025 02:30 PM 202 mg/dL N Blood chemistry[[id number]] Glucose [Mass/volume] in Serum or Plasma [2345-7] 02/23/2025 09:10 AM 136 mg/dL N Blood chemistry[[id number]] Glucose [Mass/volume] in Serum or Plasma [2345-7] 02/22/2025 10:06 AM 210 mg/dL N Blood chemistry[[id number]] Glucose [Mass/volume] in Serum or Plasma [2345-7] 02/22/2025 07:26 AM 386 mg/dL N Blood chemistry[[id number]] Glucose [Mass/volume] in Serum or Plasma [2345-7] 02/22/2025 03:36 PM 175 mg/dL N Blood chemistry[[id number]] Glucose [Mass/volume] in Serum or Plasma [2345-7] 02/22/2025 09:44 AM 121 mg/dL N Blood chemistry[[id number]] Glucose [Mass/volume] in Serum or Plasma [2345-7] 02/21/2025 12:50 PM 148 mg/dL N Blood chemistry[[id number]] Glucose [Mass/volume] in Serum or Plasma [2345-7] 02/21/2025 08:20 AM 233 mg/dL N Blood chemistry[[id number]] Glucose [Mass/volume] in Serum or Plasma [2345-7] 02/21/2025 03:02 PM 321 mg/dL N Blood chemistry[[id number]] Glucose [Mass/volume] in Serum or Plasma [2345-7] 02/21/2025 09:55 AM 125 mg/dL N Blood chemistry[[id number]] Glucose [Mass/volume] in Serum or Plasma [2345-7] 02/20/2025 12:26 PM 163 mg/dL N Blood chemistry[[id number]] Glucose [Mass/volume] in Serum or Plasma [2345-7] 02/20/2025 08:02 AM 233 mg/dL N Blood chemistry[[id number]] Glucose [Mass/volume] in Serum or Plasma [2345-7] 02/20/2025 02:59 PM 133 mg/dL N Blood chemistry[[id number]] Glucose [Mass/volume] in Serum or Plasma [2345-7] 02/20/2025 10:28 AM 107 mg/dL N Blood chemistry[[id number]] Glucose [Mass/volume] in Serum or Plasma [2345-7] 02/19/2025 01:03 PM 187 mg/dL N Blood chemistry[[id number]] Glucose [Mass/volume] in Serum or Plasma [2345-7] 02/19/2025 07:17 AM 183 mg/dL N Blood chemistry[[id number]] Glucose [Mass/volume] in Serum or Plasma [2345-7] 02/19/2025 02:06 PM 151 mg/dL N Blood chemistry[[id number]] Glucose [Mass/volume] in Serum or Plasma [2345-7] 02/19/2025 09:17 AM 126 mg/dL N Blood chemistry[[id number]] Glucose [Mass/volume] in Serum or Plasma [2345-7] 02/18/2025 01:46 PM 127 mg/dL N Blood chemistry[[id number]] Glucose [Mass/volume] in Serum or Plasma [2345-7] 02/18/2025 08:49 AM 144 mg/dL N Blood chemistry[[id number]] Glucose [Mass/volume] in Serum or Plasma [2345-7] 02/18/2025 03:34 PM 142 mg/dL N Blood chemistry[[id number]] Glucose [Mass/volume] in Serum or Plasma [2345-7] 02/18/2025 08:50 AM 118 mg/dL N Blood chemistry[[id number]] Glucose [Mass/volume] in Serum or Plasma [2345-7] 02/17/2025 12:33 PM 157 mg/dL N Blood chemistry[[id number]] Glucose [Mass/volume] in Serum or Plasma [2345-7] 02/17/2025 09:01 AM 190 mg/dL N Blood chemistry[[id number]] Glucose [Mass/volume] in Serum or Plasma [2345-7] 02/17/2025 03:15 PM 193 mg/dL N Blood chemistry[[id number]] Glucose [Mass/volume] in Serum or Plasma [2345-7] 02/17/2025 09:04 AM 118 mg/dL N Blood chemistry[[id number]] Glucose [Mass/volume] in Serum or Plasma [2345-7] 02/16/2025 01:33 PM 130 mg/dL N Blood chemistry[[id number]] Glucose [Mass/volume] in Serum or Plasma [2345-7] 02/16/2025 07:13 AM 186 mg/dL N Blood chemistry[[id number]] Glucose [Mass/volume] in Serum or Plasma [2345-7] 02/16/2025 01:41 PM 175 mg/dL N Blood chemistry[[id number]] Glucose [Mass/volume] in Serum or Plasma [2345-7] 02/16/2025 09:00 AM 115 mg/dL N Blood chemistry[[id number]] Glucose [Mass/volume] in Serum or Plasma [2345-7] 02/15/2025 10:12 AM 219 mg/dL N Blood chemistry[[id number]] Glucose [Mass/volume] in Serum or Plasma [2345-7] 02/15/2025 08:51 AM 235 mg/dL N Blood chemistry[[id number]] Glucose [Mass/volume] in Serum or Plasma [2345-7] 02/15/2025 03:20 PM 209 mg/dL N Blood chemistry[[id number]] Glucose [Mass/volume] in Serum or Plasma [2345-7] 02/15/2025 09:54 AM 135 mg/dL N Blood chemistry[[id number]] Glucose [Mass/volume] in Serum or Plasma [2345-7] 02/14/2025 12:57 PM 121 mg/dL N Blood chemistry[[id number]] Glucose [Mass/volume] in Serum or Plasma [2345-7] 02/14/2025 09:35 AM 157 mg/dL N Blood chemistry[[id number]] Glucose [Mass/volume] in Serum or Plasma [2345-7] 02/14/2025 03:32 PM 147 mg/dL N Blood chemistry[[id number]] Glucose [Mass/volume] in Serum or Plasma [2345-7] 02/14/2025 09:18 AM 122 mg/dL N Blood chemistry[[id number]] Glucose [Mass/volume] in Serum or Plasma [2345-7] 02/13/2025 01:41 PM 143 mg/dL N Blood chemistry[[id number]] Glucose [Mass/volume] in Serum or Plasma [2345-7] 02/13/2025 03:09 PM 157 mg/dL N Blood chemistry[[id number]] Glucose [Mass/volume] in Serum or Plasma [2345-7] 02/13/2025 09:09 AM 133 mg/dL N Blood chemistry[[id number]] Glucose [Mass/volume] in Serum or Plasma [2345-7] 02/12/2025 01:04 PM 143 mg/dL N Blood chemistry[[id number]] Glucose [Mass/volume] in Serum or Plasma [2345-7] 02/12/2025 09:11 AM 176 mg/dL N Blood chemistry[[id number]] Glucose [Mass/volume] in Serum or Plasma [2345-7] 02/12/2025 03:09 PM 115 mg/dL N Blood chemistry[[id number]] Glucose [Mass/volume] in Serum or Plasma [2345-7] 02/12/2025 10:16 AM 109 mg/dL N Blood chemistry[[id number]] Glucose [Mass/volume] in Serum or Plasma [2345-7] 02/11/2025 07:23 AM 183 mg/dL N Blood chemistry[[id number]] Glucose [Mass/volume] in Serum or Plasma [2345-7] 02/11/2025 02:28 PM 158 mg/dL N Blood chemistry[[id number]] Glucose [Mass/volume] in Serum or Plasma [2345-7] 02/11/2025 10:13 AM 110 mg/dL N Blood chemistry[[id number]] Glucose [Mass/volume] in Serum or Plasma [2345-7] 02/10/2025 12:41 PM 184 mg/dL N Blood chemistry[[id number]] Glucose [Mass/volume] in Serum or Plasma [2345-7] 02/10/2025 10:18 AM 156 mg/dL N Blood chemistry[[id number]] Glucose [Mass/volume] in Serum or Plasma [2345-7] 02/10/2025 03:03 PM 181 mg/dL N Blood chemistry[[id number]] Glucose [Mass/volume] in Serum or Plasma [2345-7] 02/10/2025 10:43 AM 127 mg/dL N Blood chemistry[[id number]] Glucose [Mass/volume] in Serum or Plasma [2345-7] 02/09/2025 12:46 PM 141 mg/dL N Blood chemistry[[id number]] Glucose [Mass/volume] in Serum or Plasma [2345-7] 02/09/2025 09:42 AM 137 mg/dL N Blood chemistry[[id number]] Glucose [Mass/volume] in Serum or Plasma [2345-7] 02/09/2025 03:25 PM 134 mg/dL N Blood chemistry[[id number]] Glucose [Mass/volume] in Serum or Plasma [2345-7] 02/09/2025 09:15 AM 122 mg/dL N Blood chemistry[[id number]] Glucose [Mass/volume] in Serum or Plasma [2345-7] 02/08/2025 01:58 PM 225 mg/dL N Blood chemistry[[id number]] Glucose [Mass/volume] in Serum or Plasma [2345-7] 02/08/2025 07:28 AM 216 mg/dL N Blood chemistry[[id number]] Glucose [Mass/volume] in Serum or Plasma [2345-7] 02/08/2025 03:21 PM 171 mg/dL N Blood chemistry[[id number]] Glucose [Mass/volume] in Serum or Plasma [2345-7] 02/08/2025 09:50 AM 115 mg/dL N Blood chemistry[[id number]] Glucose [Mass/volume] in Serum or Plasma [2345-7] 02/07/2025 01:15 PM 136 mg/dL N Blood chemistry[[id number]] Glucose [Mass/volume] in Serum or Plasma [2345-7] 02/07/2025 08:58 AM 148 mg/dL N Blood chemistry[[id number]] Glucose [Mass/volume] in Serum or Plasma [2345-7] 02/07/2025 03:33 PM 200 mg/dL N Blood chemistry[[id number]] Glucose [Mass/volume] in Serum or Plasma [2345-7] 02/07/2025 09:22 AM 135 mg/dL N Blood chemistry[[id number]] Glucose [Mass/volume] in Serum or Plasma [2345-7] 02/06/2025 10:23 AM 207 mg/dL N Blood chemistry[[id number]] Glucose [Mass/volume] in Serum or Plasma [2345-7] 02/06/2025 07:33 AM 186 mg/dL N Blood chemistry[[id number]] Glucose [Mass/volume] in Serum or Plasma [2345-7] 02/06/2025 03:54 PM 146 mg/dL N Blood chemistry[[id number]] Glucose [Mass/volume] in Serum or Plasma [2345-7] 02/06/2025 09:48 AM 148 mg/dL N Blood chemistry[[id number]] Glucose [Mass/volume] in Serum or Plasma [2345-7] 02/05/2025 10:45 AM 211 mg/dL N Blood chemistry[[id number]] Glucose [Mass/volume] in Serum or Plasma [2345-7] 02/05/2025 03:58 PM 151 mg/dL N Blood chemistry[[id number]] Glucose [Mass/volume] in Serum or Plasma [2345-7] 02/05/2025 03:59 PM 151 mg/dL N Blood chemistry[[id number]] Glucose [Mass/volume] in Serum or Plasma [2345-7] 02/05/2025 09:14 AM 127 mg/dL N Blood chemistry[[id number]] Glucose [Mass/volume] in Serum or Plasma [2345-7] 02/04/2025 01:12 PM 147 mg/dL N Blood chemistry[[id number]] Glucose [Mass/volume] in Serum or Plasma [2345-7] 02/04/2025 08:12 AM 137 mg/dL N Blood chemistry[[id number]] Glucose [Mass/volume] in Serum or Plasma [2345-7] 02/04/2025 03:15 PM 148 mg/dL N Blood chemistry[[id number]] Glucose [Mass/volume] in Serum or Plasma [2345-7] 02/04/2025 09:29 AM 141 mg/dL N Blood chemistry[[id number]] Glucose [Mass/volume] in Serum or Plasma [2345-7] 02/03/2025 12:16 PM 148 mg/dL N Blood chemistry[[id number]] Glucose [Mass/volume] in Serum or Plasma [2345-7] 02/03/2025 09:04 AM 168 mg/dL N Blood chemistry[[id number]] Glucose [Mass/volume] in Serum or Plasma [2345-7] 02/03/2025 03:36 PM 144 mg/dL N Blood chemistry[[id number]] Glucose [Mass/volume] in Serum or Plasma [2345-7] 02/03/2025 09:01 AM 126 mg/dL N Blood chemistry[[id number]] Glucose [Mass/volume] in Serum or Plasma [2345-7] 02/02/2025 01:04 PM 184 mg/dL N Blood chemistry[[id number]] Glucose [Mass/volume] in Serum or Plasma [2345-7] 02/02/2025 09:31 AM 147 mg/dL N Blood chemistry[[id number]] Glucose [Mass/volume] in Serum or Plasma [2345-7] 02/02/2025 01:46 PM 160 mg/dL N Blood chemistry[[id number]] Glucose [Mass/volume] in Serum or Plasma [2345-7] 02/02/2025 09:05 AM 126 mg/dL N Blood chemistry[[id number]] Glucose [Mass/volume] in Serum or Plasma [2345-7] 02/01/2025 12:58 PM 143 mg/dL N Blood chemistry[[id number]] Glucose [Mass/volume] in Serum or Plasma [2345-7] 02/01/2025 07:17 AM 185 mg/dL N Blood chemistry[[id number]] Glucose [Mass/volume] in Serum or Plasma [2345-7] 02/01/2025 03:22 PM 145 mg/dL N Blood chemistry[[id number]] Glucose [Mass/volume] in Serum or Plasma [2345-7] 02/01/2025 09:57 AM 112 mg/dL N Blood chemistry[[id number]] Glucose [Mass/volume] in Serum or Plasma [2345-7] 01/31/2025 10:43 AM 119 mg/dL N Blood chemistry[[id number]] Glucose [Mass/volume] in Serum or Plasma [2345-7] 01/31/2025 07:25 AM 260 mg/dL N Blood chemistry[[id number]] Glucose [Mass/volume] in Serum or Plasma [2345-7] 01/31/2025 01:48 PM 221 mg/dL N Blood chemistry[[id number]] Glucose [Mass/volume] in Serum or Plasma [2345-7] 01/31/2025 09:14 AM 128 mg/dL N Blood chemistry[[id number]] Glucose [Mass/volume] in Serum or Plasma [2345-7] 01/30/2025 01:00 PM 152 mg/dL N Blood chemistry[[id number]] Glucose [Mass/volume] in Serum or Plasma [2345-7] 01/30/2025 09:03 AM 272 mg/dL N Blood chemistry[[id number]] Glucose [Mass/volume] in Serum or Plasma [2345-7] 01/30/2025 03:15 PM 215 mg/dL N Blood chemistry[[id number]] Glucose [Mass/volume] in Serum or Plasma [2345-7] 01/30/2025 09:08 AM 152 mg/dL N Blood chemistry[[id number]] Glucose [Mass/volume] in Serum or Plasma [2345-7] 01/29/2025 01:25 PM 167 mg/dL N Blood chemistry[[id number]] Glucose [Mass/volume] in Serum or Plasma [2345-7] 01/29/2025 07:53 AM 192 mg/dL N Blood chemistry[[id number]] Glucose [Mass/volume] in Serum or Plasma [2345-7] 01/29/2025 03:24 PM 224 mg/dL N Blood chemistry[[id number]] Glucose [Mass/volume] in Serum or Plasma [2345-7] 01/29/2025 10:44 AM 143 mg/dL N Blood chemistry[[id number]] Glucose [Mass/volume] in Serum or Plasma [2345-7] 01/28/2025 12:47 PM 152 mg/dL N Blood chemistry[[id number]] Glucose [Mass/volume] in Serum or Plasma [2345-7] 01/28/2025 08:46 AM 147 mg/dL N Blood chemistry[[id number]] Glucose [Mass/volume] in Serum or Plasma [2345-7] 01/28/2025 02:23 PM 137 mg/dL N Blood chemistry[[id number]] Glucose [Mass/volume] in Serum or Plasma [2345-7] 01/28/2025 09:38 AM 108 mg/dL N Blood chemistry[[id number]] Glucose [Mass/volume] in Serum or Plasma [2345-7] 01/27/2025 12:47 PM 141 mg/dL N Blood chemistry[[id number]] Glucose [Mass/volume] in Serum or Plasma [2345-7] 01/27/2025 07:21 AM 211 mg/dL N Blood chemistry[[id number]] Glucose [Mass/volume] in Serum or Plasma [2345-7] 01/27/2025 03:17 PM 215 mg/dL N Blood chemistry[[id number]] Glucose [Mass/volume] in Serum or Plasma [2345-7] 01/27/2025 09:17 AM 133 mg/dL N Blood chemistry[[id number]] Glucose [Mass/volume] in Serum or Plasma [2345-7] 01/26/2025 01:30 PM 154 mg/dL N Blood chemistry[[id number]] Glucose [Mass/volume] in Serum or Plasma [2345-7] 01/26/2025 01:31 PM 162 mg/dL N Blood chemistry[[id number]] Glucose [Mass/volume] in Serum or Plasma [2345-7] 01/26/2025 08:55 AM 134 mg/dL N Blood chemistry[[id number]] Glucose [Mass/volume] in Serum or Plasma [2345-7] 01/26/2025 09:08 AM 185 mg/dL N Blood chemistry[[id number]] Glucose [Mass/volume] in Serum or Plasma [2345-7] 01/25/2025 12:33 PM 134 mg/dL N Blood chemistry[[id number]] Glucose [Mass/volume] in Serum or Plasma [2345-7] 01/25/2025 09:02 AM 176 mg/dL N Blood chemistry[[id number]] Glucose [Mass/volume] in Serum or Plasma [2345-7] 01/25/2025 03:22 PM 126 mg/dL N Blood chemistry[[id number]] Glucose [Mass/volume] in Serum or Plasma [2345-7] 01/25/2025 09:05 AM 143 mg/dL N Blood chemistry[[id number]] Glucose [Mass/volume] in Serum or Plasma [2345-7] 01/24/2025 01:44 PM 167 mg/dL N Blood chemistry[[id number]] Glucose [Mass/volume] in Serum or Plasma [2345-7] 01/24/2025 08:08 AM 167 mg/dL N Blood chemistry[[id number]] Glucose [Mass/volume] in Serum or Plasma [2345-7] 01/24/2025 03:13 PM 142 mg/dL N Blood chemistry[[id number]] Glucose [Mass/volume] in Serum or Plasma [2345-7] 01/24/2025 08:11 AM 130 mg/dL N Blood chemistry[[id number]] Glucose [Mass/volume] in Serum or Plasma [2345-7] 01/23/2025 08:26 AM 145 mg/dL N Blood chemistry[[id number]] Glucose [Mass/volume] in Serum or Plasma [2345-7] 01/23/2025 02:10 PM 163 mg/dL N Blood chemistry[[id number]] Glucose [Mass/volume] in Serum or Plasma [2345-7] 01/23/2025 09:46 AM 125 mg/dL N Blood chemistry[[id number]] Glucose [Mass/volume] in Serum or Plasma [2345-7] 01/22/2025 02:13 PM 172 mg/dL N Blood chemistry[[id number]] Glucose [Mass/volume] in Serum or Plasma [2345-7] 01/22/2025 07:56 AM 147 mg/dL N Blood chemistry[[id number]] Glucose [Mass/volume] in Serum or Plasma [2345-7] 01/22/2025 02:04 PM 144 mg/dL N Blood chemistry[[id number]] Glucose [Mass/volume] in Serum or Plasma [2345-7] 01/22/2025 09:02 AM 137 mg/dL N Blood chemistry[[id number]] Glucose [Mass/volume] in Serum or Plasma [2345-7] 01/21/2025 12:51 PM 134 mg/dL N Blood chemistry[[id number]] Glucose [Mass/volume] in Serum or Plasma [2345-7] 01/21/2025 04:56 PM 148 mg/dL N Blood chemistry[[id number]] Glucose [Mass/volume] in Serum or Plasma [2345-7] 01/21/2025 08:09 AM 174 mg/dL N Blood chemistry[[id number]] Glucose [Mass/volume] in Serum or Plasma [2345-7] 01/21/2025 10:30 AM 142 mg/dL N Blood chemistry[[id number]] Glucose [Mass/volume] in Serum or Plasma [2345-7] 01/20/2025 12:58 PM 146 mg/dL N Blood chemistry[[id number]] Glucose [Mass/volume] in Serum or Plasma [2345-7] 01/20/2025 10:46 AM 218 mg/dL N Blood chemistry[[id number]] Glucose [Mass/volume] in Serum or Plasma [2345-7] 01/20/2025 03:56 PM 206 mg/dL N Blood chemistry[[id number]] Glucose [Mass/volume] in Serum or Plasma [2345-7] 01/20/2025 10:19 AM 137 mg/dL N Blood chemistry[[id number]] Glucose [Mass/volume] in Serum or Plasma [2345-7] 01/19/2025 02:07 PM 194 mg/dL N Blood chemistry[[id number]] Glucose [Mass/volume] in Serum or Plasma [2345-7] 01/19/2025 07:17 AM 205 mg/dL N Blood chemistry[[id number]] Glucose [Mass/volume] in Serum or Plasma [2345-7] 01/19/2025 01:48 PM 159 mg/dL N Blood chemistry[[id number]] Glucose [Mass/volume] in Serum or Plasma [2345-7] 01/19/2025 09:13 AM 151 mg/dL N Blood chemistry[[id number]] Glucose [Mass/volume] in Serum or Plasma [2345-7] 01/18/2025 09:58 AM 279 mg/dL N Blood chemistry[[id number]] Glucose [Mass/volume] in Serum or Plasma [2345-7] 01/18/2025 07:19 AM 153 mg/dL N Blood chemistry[[id number]] Glucose [Mass/volume] in Serum or Plasma [2345-7] 01/18/2025 03:17 PM 151 mg/dL N Blood chemistry[[id number]] Glucose [Mass/volume] in Serum or Plasma [2345-7] 01/18/2025 09:33 AM 125 mg/dL N Blood chemistry[[id number]] Glucose [Mass/volume] in Serum or Plasma [2345-7] 01/17/2025 02:38 PM 138 mg/dL N Blood chemistry[[id number]] Glucose [Mass/volume] in Serum or Plasma [2345-7] 01/17/2025 07:37 AM 140 mg/dL N Blood chemistry[[id number]] Glucose [Mass/volume] in Serum or Plasma [2345-7] 01/17/2025 02:10 PM 163 mg/dL N Blood chemistry[[id number]] Glucose [Mass/volume] in Serum or Plasma [2345-7] 01/16/2025 12:40 PM 143 mg/dL N Blood chemistry[[id number]] Glucose [Mass/volume] in Serum or Plasma [2345-7] 01/16/2025 08:16 AM 139 mg/dL N Blood chemistry[[id number]] Glucose [Mass/volume] in Serum or Plasma [2345-7] 01/16/2025 03:46 PM 144 mg/dL N Blood chemistry[[id number]] Glucose [Mass/volume] in Serum or Plasma [2345-7] 01/16/2025 10:40 AM 179 mg/dL N Blood chemistry[[id number]] Glucose [Mass/volume] in Serum or Plasma [2345-7] 01/15/2025 02:07 PM 178 mg/dL N Blood chemistry[[id number]] Glucose [Mass/volume] in Serum or Plasma [2345-7] 01/15/2025 09:23 AM 215 mg/dL N Blood chemistry[[id number]] Glucose [Mass/volume] in Serum or Plasma [2345-7] 01/15/2025 03:41 PM 261 mg/dL N Blood chemistry[[id number]] Glucose [Mass/volume] in Serum or Plasma [2345-7] 01/15/2025 10:08 AM 136 mg/dL N Blood chemistry[[id number]] Glucose [Mass/volume] in Serum or Plasma [2345-7] 01/14/2025 10:35 AM 225 mg/dL N Blood chemistry[[id number]] Glucose [Mass/volume] in Serum or Plasma [2345-7] 01/14/2025 09:24 AM 182 mg/dL N Blood chemistry[[id number]] Glucose [Mass/volume] in Serum or Plasma [2345-7] 01/14/2025 01:54 PM 156 mg/dL N Blood chemistry[[id number]] Glucose [Mass/volume] in Serum or Plasma [2345-7] 01/14/2025 09:55 AM 104 mg/dL N Blood chemistry[[id number]] Glucose [Mass/volume] in Serum or Plasma [2345-7] 01/13/2025 07:25 AM 197 mg/dL N Blood chemistry[[id number]] Glucose [Mass/volume] in Serum or Plasma [2345-7] 01/13/2025 03:20 PM 159 mg/dL N Blood chemistry[[id number]] Glucose [Mass/volume] in Serum or Plasma [2345-7] 01/13/2025 09:44 AM 109 mg/dL N Blood chemistry[[id number]] Glucose [Mass/volume] in Serum or Plasma [2345-7] 01/12/2025 03:05 PM 216 mg/dL N Blood chemistry[[id number]] Glucose [Mass/volume] in Serum or Plasma [2345-7] 01/12/2025 08:04 AM 148 mg/dL N Blood chemistry[[id number]] Glucose [Mass/volume] in Serum or Plasma [2345-7] 01/12/2025 02:01 PM 172 mg/dL N Blood chemistry[[id number]] Glucose [Mass/volume] in Serum or Plasma [2345-7] 01/12/2025 09:18 AM 131 mg/dL N Blood chemistry[[id number]] Glucose [Mass/volume] in Serum or Plasma [2345-7] 01/11/2025 01:22 PM 166 mg/dL N Blood chemistry[[id number]] Glucose [Mass/volume] in Serum or Plasma [2345-7] 01/11/2025 09:00 AM 146 mg/dL N Blood chemistry[[id number]] Glucose [Mass/volume] in Serum or Plasma [2345-7] 01/11/2025 03:22 PM 215 mg/dL N Blood chemistry[[id number]] Glucose [Mass/volume] in Serum or Plasma [2345-7] 01/11/2025 10:19 AM 157 mg/dL N Blood chemistry[[id number]] Glucose [Mass/volume] in Serum or Plasma [2345-7] 01/10/2025 12:47 PM 158 mg/dL N Blood chemistry[[id number]] Glucose [Mass/volume] in Serum or Plasma [2345-7] 01/10/2025 08:50 AM 137 mg/dL N Blood chemistry[[id number]] Glucose [Mass/volume] in Serum or Plasma [2345-7] 01/10/2025 03:19 PM 194 mg/dL N Blood chemistry[[id number]] Glucose [Mass/volume] in Serum or Plasma [2345-7] 01/10/2025 09:30 AM 112 mg/dL N Blood chemistry[[id number]] Glucose [Mass/volume] in Serum or Plasma [2345-7] 01/09/2025 01:38 PM 125 mg/dL N Blood chemistry[[id number]] Glucose [Mass/volume] in Serum or Plasma [2345-7] 01/09/2025 08:05 AM 146 mg/dL N Blood chemistry[[id number]] Glucose [Mass/volume] in Serum or Plasma [2345-7] 01/09/2025 02:54 PM 160 mg/dL N Blood chemistry[[id number]] Glucose [Mass/volume] in Serum or Plasma [2345-7] 01/09/2025 09:38 AM 88 mg/dL N Blood chemistry[[id number]] Glucose [Mass/volume] in Serum or Plasma [2345-7] 01/08/2025 01:46 PM 144 mg/dL N Blood chemistry[[id number]] Glucose [Mass/volume] in Serum or Plasma [2345-7] 01/08/2025 07:35 AM 165 mg/dL N Blood chemistry[[id number]] Glucose [Mass/volume] in Serum or Plasma [2345-7] 01/08/2025 03:17 PM 203 mg/dL N Blood chemistry[[id number]] Glucose [Mass/volume] in Serum or Plasma [2345-7] 01/08/2025 09:28 AM 114 mg/dL N Blood chemistry[[id number]] Glucose [Mass/volume] in Serum or Plasma [2345-7] 01/07/2025 01:45 PM 197 mg/dL N Blood chemistry[[id number]] Glucose [Mass/volume] in Serum or Plasma [2345-7] 01/07/2025 08:45 AM 164 mg/dL N Blood chemistry[[id number]] Glucose [Mass/volume] in Serum or Plasma [2345-7] 01/07/2025 03:38 PM 188 mg/dL N Blood chemistry[[id number]] Glucose [Mass/volume] in Serum or Plasma [2345-7] 01/07/2025 08:36 AM 98 mg/dL N Blood chemistry[[id number]] Glucose [Mass/volume] in Serum or Plasma [2345-7] 01/06/2025 02:17 PM 115 mg/dL N Blood chemistry[[id number]] Glucose [Mass/volume] in Serum or Plasma [2345-7] 01/06/2025 08:09 AM 146 mg/dL N Blood chemistry[[id number]] Glucose [Mass/volume] in Serum or Plasma [2345-7] 01/06/2025 02:58 PM 188 mg/dL N Blood chemistry[[id number]] Glucose [Mass/volume] in Serum or Plasma [2345-7] 01/06/2025 09:46 AM 157 mg/dL N Blood chemistry[[id number]] Glucose [Mass/volume] in Serum or Plasma [2345-7] 01/05/2025 01:06 PM 167 mg/dL N Blood chemistry[[id number]] Glucose [Mass/volume] in Serum or Plasma [2345-7] 01/05/2025 08:27 AM 148 mg/dL N Blood chemistry[[id number]] Glucose [Mass/volume] in Serum or Plasma [2345-7] 01/05/2025 02:44 PM 194 mg/dL N Blood chemistry[[id number]] Glucose [Mass/volume] in Serum or Plasma [2345-7] 01/05/2025 10:36 AM 123 mg/dL N Blood chemistry[[id number]] Glucose [Mass/volume] in Serum or Plasma [2345-7] 01/04/2025 03:20 PM 160 mg/dL N Blood chemistry[[id number]] Glucose [Mass/volume] in Serum or Plasma [2345-7] 01/04/2025 07:24 AM 172 mg/dL N Blood chemistry[[id number]] Glucose [Mass/volume] in Serum or Plasma [2345-7] 01/04/2025 09:34 AM 128 mg/dL N Blood chemistry[[id number]] Glucose [Mass/volume] in Serum or Plasma [2345-7] 01/03/2025 12:41 PM 201 mg/dL N Blood chemistry[[id number]] Glucose [Mass/volume] in Serum or Plasma [2345-7] 01/03/2025 02:00 PM 208 mg/dL N Blood chemistry[[id number]] Glucose [Mass/volume] in Serum or Plasma [2345-7] 01/03/2025 08:44 AM 131 mg/dL N Blood chemistry[[id number]] Glucose [Mass/volume] in Serum or Plasma [2345-7] 01/03/2025 10:18 AM 92 mg/dL N Blood chemistry[[id number]] Glucose [Mass/volume] in Serum or Plasma [2345-7] 01/02/2025 02:31 PM 201 mg/dL N Blood chemistry[[id number]] Glucose [Mass/volume] in Serum or Plasma [2345-7] 01/02/2025 07:29 AM 146 mg/dL N Blood chemistry[[id number]] Glucose [Mass/volume] in Serum or Plasma [2345-7] 01/02/2025 03:38 PM 157 mg/dL N Blood chemistry[[id number]] Glucose [Mass/volume] in Serum or Plasma [2345-7] 01/02/2025 09:36 AM 151 mg/dL N Blood chemistry[[id number]] Glucose [Mass/volume] in Serum or Plasma [2345-7] 01/01/2025 02:25 PM 147 mg/dL N Blood chemistry[[id number]] Glucose [Mass/volume] in Serum or Plasma [2345-7] 01/01/2025 09:57 AM 210 mg/dL N Blood chemistry[[id number]] Glucose [Mass/volume] in Serum or Plasma [2345-7] 01/01/2025 04:07 PM 206 mg/dL N Blood chemistry[[id number]] Glucose [Mass/volume] in Serum or Plasma [2345-7] 01/01/2025 10:54 AM 138 mg/dL N Blood chemistry[[id number]] Glucose [Mass/volume] in Serum or Plasma [2345-7] 12/31/2024 11:14 AM 185 mg/dL N Blood chemistry[[id number]] Glucose [Mass/volume] in Serum or Plasma [2345-7] 12/31/2024 02:49 PM 142 mg/dL N Blood chemistry[[id number]] Glucose [Mass/volume] in Serum or Plasma [2345-7] 12/31/2024 08:39 AM 130 mg/dL N Glucose [Mass/volume] in Serum or Plasma [2345-7] 12/31/2024 08:39 AM 135 mg/dL N Blood chemistry[[id number]] Glucose [Mass/volume] in Serum or Plasma [2345-7] 12/30/2024 01:44 PM 133 mg/dL N Blood chemistry[[id number]] Glucose [Mass/volume] in Serum or Plasma [2345-7] 12/30/2024 04:15 PM 121 mg/dL N Blood chemistry[[id number]] Glucose [Mass/volume] in Serum or Plasma [2345-7] 12/30/2024 10:04 AM 147 mg/dL N Blood chemistry[[id number]] Glucose [Mass/volume] in Serum or Plasma [2345-7] 12/30/2024 10:22 AM 107 mg/dL N Blood chemistry[[id number]] Glucose [Mass/volume] in Serum or Plasma [2345-7] 12/29/2024 11:34 AM 251 mg/dL N Blood chemistry[[id number]] Glucose [Mass/volume] in Serum or Plasma [2345-7] 12/29/2024 03:16 PM 231 mg/dL N Blood chemistry[[id number]] Glucose [Mass/volume] in Serum or Plasma [2345-7] 12/29/2024 08:35 AM 201 mg/dL N Blood chemistry[[id number]] Glucose [Mass/volume] in Serum or Plasma [2345-7] 12/29/2024 10:56 AM 101 mg/dL N Blood chemistry[[id number]] Glucose [Mass/volume] in Serum or Plasma [2345-7] 12/28/2024 02:50 PM 174 mg/dL N Blood chemistry[[id number]] Glucose [Mass/volume] in Serum or Plasma [2345-7] 12/28/2024 09:13 AM 167 mg/dL N Blood chemistry[[id number]] Glucose [Mass/volume] in Serum or Plasma [2345-7] 12/28/2024 10:38 AM 121 mg/dL N Blood chemistry[[id number]] Glucose [Mass/volume] in Serum or Plasma [2345-7] 12/27/2024 02:50 PM 149 mg/dL N Blood chemistry[[id number]] Glucose [Mass/volume] in Serum or Plasma [2345-7] 12/27/2024 09:41 AM 184 mg/dL N Blood chemistry[[id number]] Glucose [Mass/volume] in Serum or Plasma [2345-7] 12/27/2024 04:17 PM 280 mg/dL N Blood chemistry[[id number]] Glucose [Mass/volume] in Serum or Plasma [2345-7] 12/27/2024 10:09 AM 121 mg/dL N Blood chemistry[[id number]] Glucose [Mass/volume] in Serum or Plasma [2345-7] 12/26/2024 10:41 AM 202 mg/dL N Blood chemistry[[id number]] Glucose [Mass/volume] in Serum or Plasma [2345-7] 12/26/2024 09:22 AM 169 mg/dL N Blood chemistry[[id number]] Glucose [Mass/volume] in Serum or Plasma [2345-7] 12/26/2024 03:31 PM 195 mg/dL N Blood chemistry[[id number]] Glucose [Mass/volume] in Serum or Plasma [2345-7] 12/26/2024 08:16 AM 129 mg/dL N Blood chemistry[[id number]] Glucose [Mass/volume] in Serum or Plasma [2345-7] 12/25/2024 03:02 PM 103 mg/dL N Blood chemistry[[id number]] Glucose [Mass/volume] in Serum or Plasma [2345-7] 12/25/2024 09:24 AM 192 mg/dL N Blood chemistry[[id number]] Glucose [Mass/volume] in Serum or Plasma [2345-7] 12/25/2024 03:49 PM 301 mg/dL N Blood chemistry[[id number]] Glucose [Mass/volume] in Serum or Plasma [2345-7] 12/25/2024 11:38 AM 148 mg/dL N Blood chemistry[[id number]] Glucose [Mass/volume] in Serum or Plasma [2345-7] 12/24/2024 03:06 PM 150 mg/dL N Blood chemistry[[id number]] Glucose [Mass/volume] in Serum or Plasma [2345-7] 12/24/2024 10:58 AM 211 mg/dL N Blood chemistry[[id number]] Glucose [Mass/volume] in Serum or Plasma [2345-7] 12/24/2024 04:18 PM 272 mg/dL N Blood chemistry[[id number]] Glucose [Mass/volume] in Serum or Plasma [2345-7] 12/23/2024 03:01 PM 218 mg/dL N Blood chemistry[[id number]] Glucose [Mass/volume] in Serum or Plasma [2345-7] 12/23/2024 05:00 PM 141 mg/dL N Blood chemistry[[id number]] Glucose [Mass/volume] in Serum or Plasma [2345-7] 12/23/2024 08:31 AM 184 mg/dL N Blood chemistry[[id number]] Glucose [Mass/volume] in Serum or Plasma [2345-7] 12/23/2024 11:28 AM 291 mg/dL N Blood chemistry[[id number]] Glucose [Mass/volume] in Serum or Plasma [2345-7] 12/22/2024 04:03 PM 105 mg/dL N Blood chemistry[[id number]] Glucose [Mass/volume] in Serum or Plasma [2345-7] 12/22/2024 09:03 AM 154 mg/dL N Blood chemistry[[id number]] Glucose [Mass/volume] in Serum or Plasma [2345-7] 12/22/2024 02:54 PM 301 mg/dL N Blood chemistry[[id number]] Glucose [Mass/volume] in Serum or Plasma [2345-7] 12/22/2024 09:02 AM 168 mg/dL N Blood chemistry[[id number]] Glucose [Mass/volume] in Serum or Plasma [2345-7] 12/21/2024 01:51 PM 186 mg/dL N Blood chemistry[[id number]] Glucose [Mass/volume] in Serum or Plasma [2345-7] 12/21/2024 08:14 AM 203 mg/dL N Blood chemistry[[id number]] Glucose [Mass/volume] in Serum or Plasma [2345-7] 12/21/2024 04:09 PM 136 mg/dL N Blood chemistry[[id number]] Glucose [Mass/volume] in Serum or Plasma [2345-7] 12/21/2024 10:38 AM 120 mg/dL N Blood chemistry[[id number]] Glucose [Mass/volume] in Serum or Plasma [2345-7] 12/20/2024 11:04 AM 212 mg/dL N Blood chemistry[[id number]] Glucose [Mass/volume] in Serum or Plasma [2345-7] 12/20/2024 08:22 AM 228 mg/dL N Blood chemistry[[id number]] Glucose [Mass/volume] in Serum or Plasma [2345-7] 12/20/2024 02:50 PM 233 mg/dL N Blood chemistry[[id number]] Glucose [Mass/volume] in Serum or Plasma [2345-7] 12/20/2024 11:01 AM 126 mg/dL N Blood chemistry[[id number]] Glucose [Mass/volume] in Serum or Plasma [2345-7] 12/19/2024 02:29 PM 174 mg/dL N Blood chemistry[[id number]] Glucose [Mass/volume] in Serum or Plasma [2345-7] 12/19/2024 09:06 AM 167 mg/dL N Blood chemistry[[id number]] Glucose [Mass/volume] in Serum or Plasma [2345-7] 12/19/2024 04:36 PM 157 mg/dL N Blood chemistry[[id number]] Glucose [Mass/volume] in Serum or Plasma [2345-7] 12/19/2024 11:17 AM 115 mg/dL N Blood chemistry[[id number]] Glucose [Mass/volume] in Serum or Plasma [2345-7] 12/18/2024 03:30 PM 135 mg/dL N Blood chemistry[[id number]] Glucose [Mass/volume] in Serum or Plasma [2345-7] 12/18/2024 09:13 AM 194 mg/dL N Blood chemistry[[id number]] Glucose [Mass/volume] in Serum or Plasma [2345-7] 12/18/2024 04:31 PM 144 mg/dL N Blood chemistry[[id number]] Glucose [Mass/volume] in Serum or Plasma [2345-7] 12/18/2024 11:34 AM 143 mg/dL N Blood chemistry[[id number]] Glucose [Mass/volume] in Serum or Plasma [2345-7] 12/17/2024 02:07 PM 186 mg/dL N Blood chemistry[[id number]] Glucose [Mass/volume] in Serum or Plasma [2345-7] 12/17/2024 10:39 AM 274 mg/dL N Blood chemistry[[id number]] Glucose [Mass/volume] in Serum or Plasma [2345-7] 12/17/2024 03:45 PM 279 mg/dL N Blood chemistry[[id number]] Glucose [Mass/volume] in Serum or Plasma [2345-7] 12/17/2024 09:01 AM 118 mg/dL N Blood chemistry[[id number]] Glucose [Mass/volume] in Serum or Plasma [2345-7] 12/16/2024 02:27 PM 142 mg/dL N Blood chemistry[[id number]] Glucose [Mass/volume] in Serum or Plasma [2345-7] 12/16/2024 10:08 AM 201 mg/dL N Blood chemistry[[id number]] Glucose [Mass/volume] in Serum or Plasma [2345-7] 12/16/2024 04:37 PM 129 mg/dL N Blood chemistry[[id number]] Glucose [Mass/volume] in Serum or Plasma [2345-7] 12/16/2024 10:30 AM 119 mg/dL N Blood chemistry[[id number]] Glucose [Mass/volume] in Serum or Plasma [2345-7] 12/15/2024 03:50 PM 154 mg/dL N Blood chemistry[[id number]] Glucose [Mass/volume] in Serum or Plasma [2345-7] 12/15/2024 03:20 PM 235 mg/dL N Blood chemistry[[id number]] Glucose [Mass/volume] in Serum or Plasma [2345-7] 12/15/2024 11:06 AM 143 mg/dL N Blood chemistry[[id number]] Glucose [Mass/volume] in Serum or Plasma [2345-7] 12/14/2024 11:30 AM 243 mg/dL N Blood chemistry[] Glucose [Mass/volume] in Serum or Plasma [2345-7] 12/14/2024 04:47 PM 209 mg/dL N Blood chemistry[] Glucose [Mass/volume] in Serum or Plasma [2345-7] 12/14/2024 09:45 AM 151 mg/dL N Blood chemistry[] Glucose [Mass/volume] in Serum or Plasma [2345-7] 12/14/2024 10:37 AM 125 mg/dL N Blood chemistry[] Glucose [Mass/volume] in Serum or Plasma [2345-7] 12/13/2024 03:01 PM 151 mg/dL N Blood chemistry[[id number]] Glucose [Mass/volume] in Serum or Plasma [2345-7] 12/13/2024 10:02 AM 342 mg/dL N Blood chemistry[[id number]] Glucose [Mass/volume] in Serum or Plasma [2345-7] 12/13/2024 04:47 PM 319 mg/dL N Blood chemistry[] Glucose [Mass/volume] in Serum or Plasma [2345-7] 12/13/2024 11:08 AM 132 mg/dL N Blood chemistry[[id number]] Glucose [Mass/volume] in Serum or Plasma [2345-7] 12/12/2024 11:03 AM 216 mg/dL N Blood chemistry[[id number]] Glucose [Mass/volume] in Serum or Plasma [2345-7] 12/12/2024 09:19 AM 336 mg/dL N Blood chemistry[[id number]] Glucose [Mass/volume] in Serum or Plasma [2345-7] 12/12/2024 03:29 PM 176 mg/dL N Blood chemistry[[id number]] Glucose [Mass/volume] in Serum or Plasma [2345-7] 12/12/2024 09:17 AM 148 mg/dL N Blood chemistry[[id number]] Glucose [Mass/volume] in Serum or Plasma [2345-7] 12/11/2024 10:59 AM 145 mg/dL N Blood chemistry[[id number]] Glucose [Mass/volume] in Serum or Plasma [2345-7] 12/11/2024 10:29 AM 183 mg/dL N Blood chemistry[[id number]] Glucose [Mass/volume] in Serum or Plasma [2345-7] 12/11/2024 04:20 PM 214 mg/dL N Blood chemistry[[id number]] Glucose [Mass/volume] in Serum or Plasma [2345-7] 12/11/2024 11:44 AM 162 mg/dL N Blood chemistry[[id number]] Glucose [Mass/volume] in Serum or Plasma [2345-7] 12/10/2024 02:09 PM 178 mg/dL N Blood chemistry[[id number]] Glucose [Mass/volume] in Serum or Plasma [2345-7] 12/10/2024 08:08 AM 201 mg/dL N Blood chemistry[[id number]] Glucose [Mass/volume] in Serum or Plasma [2345-7] 12/10/2024 04:49 PM 133 mg/dL N Blood chemistry[[id number]] Glucose [Mass/volume] in Serum or Plasma [2345-7] 12/10/2024 10:43 AM 152 mg/dL N Blood chemistry[[id number]] Glucose [Mass/volume] in Serum or Plasma [2345-7] 12/09/2024 01:47 PM 249 mg/dL N Blood chemistry[[id number]] Glucose [Mass/volume] in Serum or Plasma [2345-7] 12/09/2024 09:35 AM 307 mg/dL N Blood chemistry[[id number]] Glucose [Mass/volume] in Serum or Plasma [2345-7] 12/09/2024 04:38 PM 142 mg/dL N Blood chemistry[[id number]] Glucose [Mass/volume] in Serum or Plasma [2345-7] 12/09/2024 10:46 AM 129 mg/dL N Blood chemistry[[id number]] Glucose [Mass/volume] in Serum or Plasma [2345-7] 12/08/2024 02:46 PM 134 mg/dL N Blood chemistry[[id number]] Glucose [Mass/volume] in Serum or Plasma [2345-7] 12/08/2024 09:37 AM 204 mg/dL N Blood chemistry[[id number]] Glucose [Mass/volume] in Serum or Plasma [2345-7] 12/08/2024 03:21 PM 151 mg/dL N Blood chemistry[[id number]] Glucose [Mass/volume] in Serum or Plasma [2345-7] 12/08/2024 10:24 AM 136 mg/dL N Blood chemistry[[id number]] Glucose [Mass/volume] in Serum or Plasma [2345-7] 12/07/2024 04:54 PM 241 mg/dL N Blood chemistry[[id number]] Glucose [Mass/volume] in Serum or Plasma [2345-7] 12/07/2024 01:44 PM 248 mg/dL N Blood chemistry[[id number]] Glucose [Mass/volume] in Serum or Plasma [2345-7] 12/07/2024 09:24 AM 333 mg/dL N Blood chemistry[[id number]] Glucose [Mass/volume] in Serum or Plasma [2345-7] 12/07/2024 10:49 AM 145 mg/dL N Blood chemistry[[id number]] Glucose [Mass/volume] in Serum or Plasma [2345-7] 12/06/2024 03:44 PM 177 mg/dL N Blood chemistry[[id number]] Glucose [Mass/volume] in Serum or Plasma [2345-7] 12/06/2024 02:11 PM 252 mg/dL N Blood chemistry[[id number]] Glucose [Mass/volume] in Serum or Plasma [2345-7] 12/06/2024 09:46 AM 212 mg/dL N Blood chemistry[[id number]] Glucose [Mass/volume] in Serum or Plasma [2345-7] 12/06/2024 10:26 AM 161 mg/dL N Blood chemistry[[id number]] Glucose [Mass/volume] in Serum or Plasma [2345-7] 12/05/2024 02:51 PM 144 mg/dL N Blood chemistry[[id number]] Glucose [Mass/volume] in Serum or Plasma [2345-7] 12/05/2024 10:01 AM 248 mg/dL N Blood chemistry[[id number]] Glucose [Mass/volume] in Serum or Plasma [2345-7] 12/05/2024 04:47 PM 143 mg/dL N Blood chemistry[[id number]] Glucose [Mass/volume] in Serum or Plasma [2345-7] 12/05/2024 10:20 AM 165 mg/dL N Blood chemistry[[id number]] Glucose [Mass/volume] in Serum or Plasma [2345-7] 12/04/2024 04:00 PM 134 mg/dL N Blood chemistry[[id number]] Glucose [Mass/volume] in Serum or Plasma [2345-7] 12/04/2024 10:41 AM 153 mg/dL N Blood chemistry[[id number]] Glucose [Mass/volume] in Serum or Plasma [2345-7] 12/04/2024 04:21 PM 196 mg/dL N Blood chemistry[[id number]] Glucose [Mass/volume] in Serum or Plasma [2345-7] 12/04/2024 11:22 AM 134 mg/dL N Blood chemistry[[id number]] Glucose [Mass/volume] in Serum or Plasma [2345-7] 12/03/2024 03:53 PM 219 mg/dL N Blood chemistry[[id number]] Glucose [Mass/volume] in Serum or Plasma [2345-7] 12/03/2024 02:47 PM 172 mg/dL N Blood chemistry[[id number]] Glucose [Mass/volume] in Serum or Plasma [2345-7] 12/03/2024 10:10 AM 193 mg/dL N Blood chemistry[[id number]] Glucose [Mass/volume] in Serum or Plasma [2345-7] 12/03/2024 10:00 AM 123 mg/dL N Blood chemistry[[id number]] Glucose [Mass/volume] in Serum or Plasma [2345-7] 12/02/2024 03:19 PM 250 mg/dL N Blood chemistry[[id number]] Glucose [Mass/volume] in Serum or Plasma [2345-7] 12/02/2024 04:24 PM 219 mg/dL N Blood chemistry[[id number]] Glucose [Mass/volume] in Serum or Plasma [2345-7] 12/02/2024 08:59 AM 256 mg/dL N Blood chemistry[[id number]] Glucose [Mass/volume] in Serum or Plasma [2345-7] 12/02/2024 10:05 AM 193 mg/dL N Blood chemistry[[id number]] Glucose [Mass/volume] in Serum or Plasma [2345-7] 12/01/2024 03:08 PM 157 mg/dL N Blood chemistry[[id number]] Glucose [Mass/volume] in Serum or Plasma [2345-7] 12/01/2024 02:56 PM 191 mg/dL N Blood chemistry[[id number]] Glucose [Mass/volume] in Serum or Plasma [2345-7] 12/01/2024 09:13 AM 226 mg/dL N Blood chemistry[[id number]] Glucose [Mass/volume] in Serum or Plasma [2345-7] 12/01/2024 11:02 AM 184 mg/dL N Blood chemistry[[id number]] Glucose [Mass/volume] in Serum or Plasma [2345-7] 11/30/2024 11:20 AM 250 mg/dL N Blood chemistry[[id number]] Glucose [Mass/volume] in Serum or Plasma [2345-7] 11/30/2024 04:48 PM 173 mg/dL N Blood chemistry[[id number]] Glucose [Mass/volume] in Serum or Plasma [2345-7] 11/30/2024 09:33 AM 227 mg/dL N Blood chemistry[[id number]] Glucose [Mass/volume] in Serum or Plasma [2345-7] 11/30/2024 10:05 AM 114 mg/dL N Blood chemistry[[id number]] Glucose [Mass/volume] in Serum or Plasma [2345-7] 11/29/2024 04:25 PM 137 mg/dL N Blood chemistry[[id number]] Glucose [Mass/volume] in Serum or Plasma [2345-7] 11/29/2024 09:12 AM 167 mg/dL N Blood chemistry[[id number]] Glucose [Mass/volume] in Serum or Plasma [2345-7] 11/29/2024 06:32 AM 213 mg/dL N Blood chemistry[[id number]] Glucose [Mass/volume] in Serum or Plasma [2345-7] 11/29/2024 08:42 AM 135 mg/dL N Blood chemistry[[id number]] Glucose [Mass/volume] in Serum or Plasma [2345-7] 11/28/2024 11:08 AM 368 mg/dL N Blood chemistry[[id number]] Glucose [Mass/volume] in Serum or Plasma [2345-7] 11/28/2024 09:44 AM 202 mg/dL N Blood chemistry[[id number]] Glucose [Mass/volume] in Serum or Plasma [2345-7] 11/28/2024 05:07 PM 163 mg/dL N Blood chemistry[[id number]] Glucose [Mass/volume] in Serum or Plasma [2345-7] 11/28/2024 03:23 PM 177 mg/dL N Blood chemistry[[id number]] Glucose [Mass/volume] in Serum or Plasma [2345-7] 11/28/2024 08:35 AM 147 mg/dL N Blood chemistry[[id number]] Glucose [Mass/volume] in Serum or Plasma [2345-7] 11/27/2024 11:42 AM 223 mg/dL N Blood chemistry[[id number]] Glucose [Mass/volume] in Serum or Plasma [2345-7] 11/27/2024 04:42 PM 183 mg/dL N Blood chemistry[[id number]] Glucose [Mass/volume] in Serum or Plasma [2345-7] 11/27/2024 08:25 AM 215 mg/dL N Blood chemistry[[id number]] Glucose [Mass/volume] in Serum or Plasma [2345-7] 11/27/2024 05:41 PM 145 mg/dL N Blood chemistry[[id number]] Glucose [Mass/volume] in Serum or Plasma [2345-7] 11/27/2024 10:00 AM 169 mg/dL N Blood chemistry[[id number]] Glucose [Mass/volume] in Serum or Plasma [2345-7] 11/26/2024 03:47 PM 271 mg/dL N Blood chemistry[[id number]] Glucose [Mass/volume] in Serum or Plasma [2345-7] 11/26/2024 10:11 AM 167 mg/dL N Blood chemistry[[id number]] Glucose [Mass/volume] in Serum or Plasma [2345-7] 11/26/2024 11:13 AM 144 mg/dL N Blood chemistry[[id number]] Glucose [Mass/volume] in Serum or Plasma [2345-7] 11/25/2024 03:38 PM 142 mg/dL N Blood chemistry[[id number]] Glucose [Mass/volume] in Serum or Plasma [2345-7] 11/25/2024 09:02 AM 250 mg/dL N Blood chemistry[[id number]] Glucose [Mass/volume] in Serum or Plasma [2345-7] 11/25/2024 04:19 PM 193 mg/dL N Blood chemistry[[id number]] Glucose [Mass/volume] in Serum or Plasma [2345-7] 11/25/2024 10:16 AM 148 mg/dL N Blood chemistry[[id number]] Glucose [Mass/volume] in Serum or Plasma [2345-7] 11/24/2024 01:56 PM 176 mg/dL N Blood chemistry[[id number]] Glucose [Mass/volume] in Serum or Plasma [2345-7] 11/24/2024 09:49 AM 257 mg/dL N Blood chemistry[[id number]] Glucose [Mass/volume] in Serum or Plasma [2345-7] 11/24/2024 02:54 PM 159 mg/dL N Blood chemistry[[id number]] Glucose [Mass/volume] in Serum or Plasma [2345-7] 11/24/2024 10:24 AM 117 mg/dL N Blood chemistry[[id number]] Glucose [Mass/volume] in Serum or Plasma [2345-7] 11/23/2024 04:22 PM 183 mg/dL N Blood chemistry[[id number]] Glucose [Mass/volume] in Serum or Plasma [2345-7] 11/23/2024 03:01 PM 247 mg/dL N Blood chemistry[[id number]] Glucose [Mass/volume] in Serum or Plasma [2345-7] 11/23/2024 09:26 AM 196 mg/dL N Blood chemistry[[id number]] Glucose [Mass/volume] in Serum or Plasma [2345-7] 11/23/2024 10:42 AM 156 mg/dL N Blood chemistry[[id number]] Glucose [Mass/volume] in Serum or Plasma [2345-7] 11/22/2024 04:08 PM 178 mg/dL N Blood chemistry[[id number]] Glucose [Mass/volume] in Serum or Plasma [2345-7] 11/22/2024 01:30 PM 269 mg/dL N Blood chemistry[[id number]] Glucose [Mass/volume] in Serum or Plasma [2345-7] 11/22/2024 09:23 AM 242 mg/dL N Blood chemistry[[id number]] Glucose [Mass/volume] in Serum or Plasma [5-7] 11/22/2024 10:26 AM 202 mg/dL N Blood chemistry[[id number]] Glucose [Mass/volume] in Serum or Plasma [2344-7] 11/21/2024 03:13 PM 135 mg/dL N Blood chemistry[[id number]] Glucose [Mass/volume] in Serum or Plasma [5-7] 11/21/2024 10:26 AM 154 mg/dL N Blood chemistry[[id number]] Glucose [Mass/volume] in Serum or Plasma [2344-7] 11/21/2024 04:48 PM 194 mg/dL N Blood chemistry[[id number]] Glucose [Mass/volume] in Serum or Plasma [2344-7] 11/21/2024 10:31 AM 144 mg/dL N Blood chemistry[[id number]] Glucose [Mass/volume] in Serum or Plasma [5-7] 11/20/2024 03:08 PM 145 mg/dL N Blood chemistry[[id number]] Glucose [Mass/volume] in Serum or Plasma [2344-7] 11/20/2024 09:15 AM 134 mg/dL N Blood chemistry[[id number]] Glucose [Mass/volume] in Serum or Plasma [5-7] 11/20/2024 04:34 PM 156 mg/dL N Blood chemistry[[id number]] Glucose [Mass/volume] in Serum or Plasma [5-7] 11/20/2024 11:25 AM 128 mg/dL N Blood chemistry[[id number]] Glucose [Mass/volume] in Serum or Plasma [5-7] 11/19/2024 02:50 PM 202 mg/dL N Blood chemistry[[id number]] Glucose [Mass/volume] in Serum or Plasma [5-7] 11/19/2024 08:26 AM 270 mg/dL N Blood chemistry[[id number]] Glucose [Mass/volume] in Serum or Plasma [5-7] 11/19/2024 04:12 PM 234 mg/dL N Blood chemistry[[id number]] Glucose [Mass/volume] in Serum or Plasma [2345-7] 11/19/2024 11:21 AM 138 mg/dL N Blood chemistry[[id number]] Glucose [Mass/volume] in Serum or Plasma [2345-7] 11/18/2024 03:02 PM 186 mg/dL N Blood chemistry[[id number]] Glucose [Mass/volume] in Serum or Plasma [2345-7] 11/18/2024 04:37 PM 140 mg/dL N Blood chemistry[[id number]] Glucose [Mass/volume] in Serum or Plasma [2345-7] 11/18/2024 08:53 AM 171 mg/dL N Blood chemistry[[id number]] Glucose [Mass/volume] in Serum or Plasma [2345-7] 11/18/2024 11:15 AM 133 mg/dL N Blood chemistry[[id number]] Glucose [Mass/volume] in Serum or Plasma [2345-7] 11/17/2024 11:32 AM 285 mg/dL N Blood chemistry[[id number]] Glucose [Mass/volume] in Serum or Plasma [2345-7] 11/17/2024 03:17 PM 186 mg/dL N Blood chemistry[[id number]] Glucose [Mass/volume] in Serum or Plasma [2345-7] 11/17/2024 11:22 AM 136 mg/dL N Blood chemistry[[id number]] Glucose [Mass/volume] in Serum or Plasma [2345-7] 11/17/2024 10:46 AM 124 mg/dL N Blood chemistry[[id number]] Glucose [Mass/volume] in Serum or Plasma [2345-7] 11/16/2024 04:36 PM 116 mg/dL N Blood chemistry[[id number]] Glucose [Mass/volume] in Serum or Plasma [2345-7] 11/16/2024 08:23 AM 212 mg/dL N Blood chemistry[[id number]] Glucose [Mass/volume] in Serum or Plasma [2345-7] 11/16/2024 09:08 AM 136 mg/dL N Blood chemistry[[id number]] Glucose [Mass/volume] in Serum or Plasma [2345-7] 11/15/2024 04:37 PM 158 mg/dL N Blood chemistry[[id number]] Glucose [Mass/volume] in Serum or Plasma [2345-7] 11/15/2024 04:20 PM 154 mg/dL N Blood chemistry[[id number]] Glucose [Mass/volume] in Serum or Plasma [2345-7] 11/15/2024 09:00 AM 199 mg/dL N Blood chemistry[[id number]] Glucose [Mass/volume] in Serum or Plasma [2345-7] 11/15/2024 10:53 AM 130 mg/dL N Blood chemistry[[id number]] Glucose [Mass/volume] in Serum or Plasma [2345-7] 11/14/2024 01:53 PM 192 mg/dL N Blood chemistry[[id number]] Glucose [Mass/volume] in Serum or Plasma [2345-7] 11/14/2024 10:02 AM 131 mg/dL N Blood chemistry[[id number]] Glucose [Mass/volume] in Serum or Plasma [2345-7] 11/14/2024 04:30 PM 195 mg/dL N Blood chemistry[[id number]] Glucose [Mass/volume] in Serum or Plasma [2345-7] 11/14/2024 10:55 AM 125 mg/dL N Blood chemistry[[id number]] Glucose [Mass/volume] in Serum or Plasma [2345-7] 11/13/2024 02:18 PM 206 mg/dL N Blood chemistry[[id number]] Glucose [Mass/volume] in Serum or Plasma [2345-7] 11/13/2024 10:10 AM 218 mg/dL N Blood chemistry[[id number]] Glucose [Mass/volume] in Serum or Plasma [2345-7] 11/13/2024 05:21 PM 184 mg/dL N Blood chemistry[[id number]] Glucose [Mass/volume] in Serum or Plasma [2345-7] 11/13/2024 05:00 PM 224 mg/dL N Blood chemistry[[id number]] Glucose [Mass/volume] in Serum or Plasma [2345-7] 11/13/2024 10:50 AM 107 mg/dL N Blood chemistry[[id number]] Glucose [Mass/volume] in Serum or Plasma [2345-7] 11/12/2024 09:21 AM 164 mg/dL N Blood chemistry[[id number]] Glucose [Mass/volume] in Serum or Plasma [2345-7] 11/12/2024 04:09 PM 157 mg/dL N Blood chemistry[[id number]] Glucose [Mass/volume] in Serum or Plasma [2345-7] 11/12/2024 11:30 AM 136 mg/dL N Blood chemistry[[id number]] Glucose [Mass/volume] in Serum or Plasma [2345-7] 11/11/2024 03:19 PM 178 mg/dL N Blood chemistry[[id number]] Glucose [Mass/volume] in Serum or Plasma [2345-7] 11/11/2024 09:31 AM 136 mg/dL N Blood chemistry[[id number]] Glucose [Mass/volume] in Serum or Plasma [2345-7] 11/11/2024 05:31 PM 144 mg/dL N Blood chemistry[[id number]] Glucose [Mass/volume] in Serum or Plasma [2345-7] 11/11/2024 11:07 AM 133 mg/dL N Blood chemistry[[id number]] Glucose [Mass/volume] in Serum or Plasma [2345-7] 11/10/2024 04:43 PM 233 mg/dL N Blood chemistry[[id number]] Glucose [Mass/volume] in Serum or Plasma [2345-7] 11/10/2024 02:43 PM 178 mg/dL N Blood chemistry[[id number]] Glucose [Mass/volume] in Serum or Plasma [2345-7] 11/10/2024 09:43 AM 165 mg/dL N COVID-19 Test Viral Antigen null flavor [null] 11/10/2024 05:00 PM See note POS COVID-19 Test Viral Antigen Blood chemistry[[id number]] Glucose [Mass/volume] in Serum or Plasma [2345-7] 11/10/2024 10:36 AM 144 mg/dL N Blood chemistry[[id number]] Glucose [Mass/volume] in Serum or Plasma [2345-7] 11/09/2024 04:52 PM 186 mg/dL N Blood chemistry[[id number]] Glucose [Mass/volume] in Serum or Plasma [2345-7] 11/09/2024 11:41 AM 262 mg/dL N Blood chemistry[[id number]] Glucose [Mass/volume] in Serum or Plasma [2345-7] 11/09/2024 08:08 AM 216 mg/dL N Blood chemistry[[id number]] Glucose [Mass/volume] in Serum or Plasma [2345-7] 11/09/2024 10:51 AM 160 mg/dL N Blood chemistry[[id number]] Glucose [Mass/volume] in Serum or Plasma [2345-7] 11/08/2024 11:25 AM 201 mg/dL N Blood chemistry[[id number]] Glucose [Mass/volume] in Serum or Plasma [2345-7] 11/08/2024 04:20 PM 256 mg/dL N Blood chemistry[[id number]] Glucose [Mass/volume] in Serum or Plasma [2345-7] 11/08/2024 10:22 AM 132 mg/dL N Blood chemistry[[id number]] Glucose [Mass/volume] in Serum or Plasma [2345-7] 11/08/2024 08:40 AM 210 mg/dL N Blood chemistry[[id number]] Glucose [Mass/volume] in Serum or Plasma [2345-7] 11/07/2024 02:42 PM 143 mg/dL N Blood chemistry[[id number]] Glucose [Mass/volume] in Serum or Plasma [2345-7] 11/07/2024 09:57 AM 137 mg/dL N Blood chemistry[[id number]] Glucose [Mass/volume] in Serum or Plasma [2345-7] 11/07/2024 05:44 PM 142 mg/dL N Blood chemistry[[id number]] Glucose [Mass/volume] in Serum or Plasma [2345-7] 11/07/2024 11:11 AM 146 mg/dL N Blood chemistry[[id number]] Glucose [Mass/volume] in Serum or Plasma [2345-7] 11/06/2024 03:37 PM 157 mg/dL N Blood chemistry[[id number]] Glucose [Mass/volume] in Serum or Plasma [2345-7] 11/06/2024 08:59 AM 144 mg/dL N Blood chemistry[[id number]] Glucose [Mass/volume] in Serum or Plasma [2345-7] 11/06/2024 05:03 PM 168 mg/dL N Blood chemistry[[id number]] Glucose [Mass/volume] in Serum or Plasma [2345-7] 11/06/2024 11:29 AM 159 mg/dL N Blood chemistry[[id number]] Glucose [Mass/volume] in Serum or Plasma [2345-7] 11/05/2024 03:37 PM 186 mg/dL N Blood chemistry[[id number]] Glucose [Mass/volume] in Serum or Plasma [2345-7] 11/05/2024 11:31 AM 206 mg/dL N Blood chemistry[[id number]] Glucose [Mass/volume] in Serum or Plasma [2345-7] 11/05/2024 08:38 AM 236 mg/dL N Blood chemistry[[id number]] Glucose [Mass/volume] in Serum or Plasma [2345-7] 11/05/2024 11:54 AM 192 mg/dL N Blood chemistry[[id number]] Glucose [Mass/volume] in Serum or Plasma [2345-7] 11/04/2024 11:34 AM 250 mg/dL N Blood chemistry[[id number]] Glucose [Mass/volume] in Serum or Plasma [2345-7] 11/04/2024 04:29 PM 152 mg/dL N Blood chemistry[[id number]] Glucose [Mass/volume] in Serum or Plasma [2345-7] 11/04/2024 08:23 AM 185 mg/dL N Blood chemistry[[id number]] Glucose [Mass/volume] in Serum or Plasma [2345-7] 11/04/2024 10:34 AM 138 mg/dL N Blood chemistry[[id number]] Glucose [Mass/volume] in Serum or Plasma [2345-7] 11/03/2024 03:39 PM 157 mg/dL N Blood chemistry[[id number]] Glucose [Mass/volume] in Serum or Plasma [2345-7] 11/03/2024 09:47 AM 234 mg/dL N Blood chemistry[[id number]] Glucose [Mass/volume] in Serum or Plasma [2345-7] 11/03/2024 03:15 PM 197 mg/dL N Blood chemistry[[id number]] Glucose [Mass/volume] in Serum or Plasma [2345-7] 11/03/2024 10:13 AM 142 mg/dL N Blood chemistry[[id number]] Glucose [Mass/volume] in Serum or Plasma [2345-7] 11/02/2024 01:21 PM 166 mg/dL N Blood chemistry[[id number]] Glucose [Mass/volume] in Serum or Plasma [2345-7] 11/02/2024 11:06 AM 128 mg/dL N Blood chemistry[[id number]] Glucose [Mass/volume] in Serum or Plasma [2345-7] 11/02/2024 05:23 PM 144 mg/dL N Blood chemistry[[id number]] Glucose [Mass/volume] in Serum or Plasma [2345-7] 11/02/2024 10:24 AM 140 mg/dL N Blood chemistry[[id number]] Glucose [Mass/volume] in Serum or Plasma [2345-7] 11/01/2024 04:24 PM 170 mg/dL N Blood chemistry[[id number]] Glucose [Mass/volume] in Serum or Plasma [2345-7] 11/01/2024 03:25 PM 134 mg/dL N Blood chemistry[[id number]] Glucose [Mass/volume] in Serum or Plasma [2345-7] 11/01/2024 09:41 AM 151 mg/dL N Blood chemistry[[id number]] Glucose [Mass/volume] in Serum or Plasma [2345-7] 11/01/2024 08:41 AM 106 mg/dL N Blood chemistry[[id number]] Glucose [Mass/volume] in Serum or Plasma [2345-7] 10/31/2024 05:22 PM 185 mg/dL N Blood chemistry[[id number]] Glucose [Mass/volume] in Serum or Plasma [2345-7] 10/31/2024 11:11 AM 233 mg/dL N Blood chemistry[[id number]] Glucose [Mass/volume] in Serum or Plasma [2345-7] 10/31/2024 09:24 AM 193 mg/dL N Blood chemistry[[id number]] Glucose [Mass/volume] in Serum or Plasma [2345-7] 10/31/2024 11:18 AM 151 mg/dL N Blood chemistry[[id number]] Glucose [Mass/volume] in Serum or Plasma [2345-7] 10/30/2024 11:28 AM 184 mg/dL N Blood chemistry[[id number]] Glucose [Mass/volume] in Serum or Plasma [2345-7] 10/30/2024 09:41 AM 168 mg/dL N Blood chemistry[[id number]] Glucose [Mass/volume] in Serum or Plasma [2345-7] 10/29/2024 09:45 AM 154 mg/dL N Blood chemistry[[id number]] Glucose [Mass/volume] in Serum or Plasma [2345-7] 10/27/2024 05:12 PM 155 mg/dL N Blood chemistry[[id number]] Glucose [Mass/volume] in Serum or Plasma [2345-7] 10/27/2024 11:43 AM 195 mg/dL N Blood chemistry[[id number]] Glucose [Mass/volume] in Serum or Plasma [2345-7] 10/27/2024 09:31 AM 156 mg/dL N Blood chemistry[[id number]] Glucose [Mass/volume] in Serum or Plasma [2345-7] 10/27/2024 11:36 AM 135 mg/dL N Blood chemistry[[id number]] Glucose [Mass/volume] in Serum or Plasma [2345-7] 10/26/2024 03:11 PM 178 mg/dL N Blood chemistry[[id number]] Glucose [Mass/volume] in Serum or Plasma [2345-7] 10/26/2024 10:49 AM 134 mg/dL N Blood chemistry[[id number]] Glucose [Mass/volume] in Serum or Plasma [2345-7] 10/26/2024 04:52 PM 145 mg/dL N Blood chemistry[[id number]] Glucose [Mass/volume] in Serum or Plasma [2345-7] 10/26/2024 11:19 AM 118 mg/dL N Blood chemistry[[id number]] Glucose [Mass/volume] in Serum or Plasma [2345-7] 10/25/2024 11:19 AM 265 mg/dL N Blood chemistry[[id number]] Glucose [Mass/volume] in Serum or Plasma [2345-7] 10/25/2024 08:28 AM 295 mg/dL N Blood chemistry[[id number]] Glucose [Mass/volume] in Serum or Plasma [2345-7] 10/25/2024 05:14 PM 232 mg/dL N Blood chemistry[[id number]] Glucose [Mass/volume] in Serum or Plasma [2345-7] 10/25/2024 11:39 AM 201 mg/dL N Blood chemistry[[id number]] Glucose [Mass/volume] in Serum or Plasma [2345-7] 10/24/2024 04:27 PM 167 mg/dL N Blood chemistry[[id number]] Glucose [Mass/volume] in Serum or Plasma [2345-7] 10/24/2024 04:34 PM 242 mg/dL N Blood chemistry[[id number]] Glucose [Mass/volume] in Serum or Plasma [2345-7] 10/24/2024 11:36 AM 110 mg/dL N Blood chemistry[[id number]] Glucose [Mass/volume] in Serum or Plasma [2345-7] 10/23/2024 04:03 PM 337 mg/dL N Blood chemistry[[id number]] Glucose [Mass/volume] in Serum or Plasma [2345-7] 10/23/2024 04:35 PM 86 mg/dL N Blood chemistry[[id number]] Glucose [Mass/volume] in Serum or Plasma [2345-7] 10/23/2024 02:24 PM 118 mg/dL N Blood chemistry[[id number]] Glucose [Mass/volume] in Serum or Plasma [2345-7] 10/22/2024 11:12 AM 139 mg/dL N Blood chemistry[[id number]] Glucose [Mass/volume] in Serum or Plasma [2345-7] 10/22/2024 08:33 AM 164 mg/dL N Blood chemistry[[id number]] Glucose [Mass/volume] in Serum or Plasma [2345-7] 10/22/2024 04:19 PM 311 mg/dL N Blood chemistry[[id number]] Glucose [Mass/volume] in Serum or Plasma [2345-7] 10/22/2024 11:13 AM 121 mg/dL N Blood chemistry[[id number]] Glucose [Mass/volume] in Serum or Plasma [2345-7] 10/21/2024 11:46 AM 233 mg/dL N Blood chemistry[[id number]] Glucose [Mass/volume] in Serum or Plasma [2345-7] 10/21/2024 08:30 AM 155 mg/dL N Blood chemistry[[id number]] Glucose [Mass/volume] in Serum or Plasma [2345-7] 10/21/2024 04:15 PM 182 mg/dL N Blood chemistry[[id number]] Glucose [Mass/volume] in Serum or Plasma [2345-7] 10/21/2024 11:40 AM 113 mg/dL N Blood chemistry[[id number]] Glucose [Mass/volume] in Serum or Plasma [2345-7] 10/20/2024 12:57 PM 303 mg/dL N Blood chemistry[[id number]] Glucose [Mass/volume] in Serum or Plasma [2345-7] 10/20/2024 08:47 AM 214 mg/dL N Blood chemistry[[id number]] Glucose [Mass/volume] in Serum or Plasma [2345-7] 10/20/2024 04:36 PM 119 mg/dL N Blood chemistry[[id number]] Glucose [Mass/volume] in Serum or Plasma [2345-7] 10/20/2024 11:08 AM 123 mg/dL N Blood chemistry[[id number]] Glucose [Mass/volume] in Serum or Plasma [2345-7] 10/19/2024 11:49 AM 186 mg/dL N Blood chemistry[[id number]] Glucose [Mass/volume] in Serum or Plasma [2345-7] 10/19/2024 09:18 AM 128 mg/dL N Blood chemistry[[id number]] Glucose [Mass/volume] in Serum or Plasma [2345-7] 10/19/2024 04:26 PM 268 mg/dL N Blood chemistry[[id number]] Glucose [Mass/volume] in Serum or Plasma [2345-7] 10/19/2024 12:58 PM 148 mg/dL N Blood chemistry[[id number]] Glucose [Mass/volume] in Serum or Plasma [2345-7] 10/18/2024 03:14 PM 148 mg/dL N Blood chemistry[[id number]] Glucose [Mass/volume] in Serum or Plasma [2345-7] 10/18/2024 05:09 PM 380 mg/dL N Blood chemistry[[id number]] Glucose [Mass/volume] in Serum or Plasma [2345-7] 10/18/2024 09:47 AM 242 mg/dL N Blood chemistry[[id number]] Glucose [Mass/volume] in Serum or Plasma [2345-7] 10/18/2024 09:29 AM 134 mg/dL N Blood chemistry[[id number]] Glucose [Mass/volume] in Serum or Plasma [2345-7] 10/17/2024 01:43 PM 202 mg/dL N Blood chemistry[[id number]] Glucose [Mass/volume] in Serum or Plasma [2345-7] 10/17/2024 09:14 AM 284 mg/dL N Blood chemistry[[id number]] Glucose [Mass/volume] in Serum or Plasma [2345-7] 10/17/2024 03:56 PM 152 mg/dL N Blood chemistry[[id number]] Glucose [Mass/volume] in Serum or Plasma [2345-7] 10/17/2024 11:01 AM 130 mg/dL N Blood chemistry[[id number]] Glucose [Mass/volume] in Serum or Plasma [2345-7] 10/16/2024 01:10 PM 204 mg/dL N Blood chemistry[[id number]] Glucose [Mass/volume] in Serum or Plasma [2345-7] 10/16/2024 09:08 AM 145 mg/dL N Blood chemistry[[id number]] Glucose [Mass/volume] in Serum or Plasma [2345-7] 10/16/2024 03:58 PM 188 mg/dL N Blood chemistry[[id number]] Glucose [Mass/volume] in Serum or Plasma [2345-7] 10/16/2024 11:16 AM 134 mg/dL N Blood chemistry[[id number]] Glucose [Mass/volume] in Serum or Plasma [2345-7] 10/15/2024 02:38 PM 193 mg/dL N Blood chemistry[[id number]] Glucose [Mass/volume] in Serum or Plasma [2345-7] 10/15/2024 09:55 AM 214 mg/dL N Blood chemistry[[id number]] Glucose [Mass/volume] in Serum or Plasma [2345-7] 10/15/2024 04:17 PM 325 mg/dL N Blood chemistry[[id number]] Glucose [Mass/volume] in Serum or Plasma [2345-7] 10/15/2024 11:02 AM 122 mg/dL N Blood chemistry[[id number]] Glucose [Mass/volume] in Serum or Plasma [2345-7] 10/14/2024 12:07 PM 163 mg/dL N Blood chemistry[[id number]] Glucose [Mass/volume] in Serum or Plasma [2345-7] 10/14/2024 04:15 PM 165 mg/dL N Blood chemistry[[id number]] Glucose [Mass/volume] in Serum or Plasma [2345-7] 10/14/2024 10:49 AM 127 mg/dL N Blood chemistry[[id number]] Glucose [Mass/volume] in Serum or Plasma [2345-7] 10/14/2024 09:18 AM 310 mg/dL N Blood chemistry[[id number]] Glucose [Mass/volume] in Serum or Plasma [2345-7] 10/13/2024 12:28 PM 380 mg/dL N Blood chemistry[[id number]] Glucose [Mass/volume] in Serum or Plasma [2345-7] 10/13/2024 09:32 AM 252 mg/dL N Blood chemistry[[id number]] Glucose [Mass/volume] in Serum or Plasma [2345-7] 10/13/2024 03:55 PM 135 mg/dL N Blood chemistry[[id number]] Glucose [Mass/volume] in Serum or Plasma [2345-7] 10/13/2024 11:06 AM 169 mg/dL N Blood chemistry[[id number]] Glucose [Mass/volume] in Serum or Plasma [2345-7] 10/12/2024 03:21 PM 228 mg/dL N Blood chemistry[[id number]] Glucose [Mass/volume] in Serum or Plasma [2345-7] 10/06/2024 04:13 PM 187 mg/dL N Blood chemistry[[id number]] Glucose [Mass/volume] in Serum or Plasma [2345-7] 10/06/2024 11:03 AM 145 mg/dL N Blood chemistry[[id number]] Glucose [Mass/volume] in Serum or Plasma [2345-7] 10/01/2024 04:18 PM 224 mg/dL N Blood chemistry[[id number]] Glucose [Mass/volume] in Serum or Plasma [2345-7] 10/01/2024 10:00 AM 145 mg/dL N Blood chemistry[[id number]] Glucose [Mass/volume] in Serum or Plasma [2345-7] 10/01/2024 08:24 AM 161 mg/dL N Blood chemistry[[id number]] Glucose [Mass/volume] in Serum or Plasma [2345-7] 09/30/2024 03:18 PM 143 mg/dL N Blood chemistry[[id number]] Glucose [Mass/volume] in Serum or Plasma [2345-7] 09/28/2024 04:32 PM 170 mg/dL N Blood chemistry[[id number]] Glucose [Mass/volume] in Serum or Plasma [2345-7] 09/28/2024 11:20 AM 172 mg/dL N Blood chemistry[[id number]] Glucose [Mass/volume] in Serum or Plasma [2345-7] 09/28/2024 10:55 AM 133 mg/dL N Blood chemistry[[id number]] Glucose [Mass/volume] in Serum or Plasma [2345-7] 09/28/2024 08:18 AM 138 mg/dL N Blood chemistry[[id number]] Glucose [Mass/volume] in Serum or Plasma [2345-7] 09/27/2024 03:51 PM 181 mg/dL N Blood chemistry[[id number]] Glucose [Mass/volume] in Serum or Plasma [2345-7] 09/27/2024 11:10 AM 219 mg/dL N Blood chemistry[[id number]] Glucose [Mass/volume] in Serum or Plasma [2345-7] 09/27/2024 10:24 AM 149 mg/dL N Blood chemistry[[id number]] Glucose [Mass/volume] in Serum or Plasma [2345-7] 09/27/2024 08:31 AM 160 mg/dL N Blood chemistry[[id number]] Glucose [Mass/volume] in Serum or Plasma [2345-7] 09/26/2024 04:45 PM 220 mg/dL N Blood chemistry[[id number]] Glucose [Mass/volume] in Serum or Plasma [2345-7] 09/26/2024 03:49 PM 126 mg/dL N Blood chemistry[[id number]] Glucose [Mass/volume] in Serum or Plasma [2345-7] 09/26/2024 10:01 AM 167 mg/dL N Blood chemistry[[id number]] Glucose [Mass/volume] in Serum or Plasma [2345-7] 09/26/2024 09:13 AM 136 mg/dL N Blood chemistry[[id number]] Glucose [Mass/volume] in Serum or Plasma [2345-7] 09/25/2024 04:07 PM 247 mg/dL N Blood chemistry[[id number]] Glucose [Mass/volume] in Serum or Plasma [2345-7] 09/25/2024 02:59 PM 205 mg/dL N Blood chemistry[[id number]] Glucose [Mass/volume] in Serum or Plasma [2345-7] 09/25/2024 11:55 AM 163 mg/dL N Blood chemistry[[id number]] Glucose [Mass/volume] in Serum or Plasma [2345-7] 09/25/2024 09:31 AM 393 mg/dL N Blood chemistry[[id number]] Glucose [Mass/volume] in Serum or Plasma [2345-7] 09/24/2024 05:13 PM 180 mg/dL N Blood chemistry[[id number]] Glucose [Mass/volume] in Serum or Plasma [2345-7] 09/24/2024 11:36 AM 186 mg/dL N Blood chemistry[[id number]] Glucose [Mass/volume] in Serum or Plasma [2345-7] 09/24/2024 10:14 AM 126 mg/dL N Blood chemistry[[id number]] Glucose [Mass/volume] in Serum or Plasma [2345-7] 09/24/2024 08:45 AM 169 mg/dL N Blood chemistry[[id number]] Glucose [Mass/volume] in Serum or Plasma [2345-7] 09/23/2024 04:32 PM 181 mg/dL N Blood chemistry[[id number]] Glucose [Mass/volume] in Serum or Plasma [2345-7] 09/23/2024 11:23 AM 195 mg/dL N Blood chemistry[[id number]] Glucose [Mass/volume] in Serum or Plasma [2345-7] 09/23/2024 10:03 AM 120 mg/dL N Blood chemistry[[id number]] Glucose [Mass/volume] in Serum or Plasma [2345-7] 09/23/2024 08:35 AM 265 mg/dL N Blood chemistry[[id number]] Glucose [Mass/volume] in Serum or Plasma [2345-7] 09/22/2024 03:49 PM 178 mg/dL N Blood chemistry[[id number]] Glucose [Mass/volume] in Serum or Plasma [2345-7] 09/22/2024 11:23 AM 267 mg/dL N Blood chemistry[[id number]] Glucose [Mass/volume] in Serum or Plasma [2345-7] 09/22/2024 10:31 AM 124 mg/dL N Blood chemistry[[id number]] Glucose [Mass/volume] in Serum or Plasma [2345-7] 09/22/2024 08:29 AM 273 mg/dL N Blood chemistry[[id number]] Glucose [Mass/volume] in Serum or Plasma [2345-7] 09/21/2024 04:30 PM 211 mg/dL N Blood chemistry[[id number]] Glucose [Mass/volume] in Serum or Plasma [2345-7] 09/21/2024 11:12 AM 276 mg/dL N Blood chemistry[[id number]] Glucose [Mass/volume] in Serum or Plasma [2345-7] 09/21/2024 10:46 AM 145 mg/dL N Blood chemistry[[id number]] Glucose [Mass/volume] in Serum or Plasma [2345-7] 09/21/2024 08:24 AM 247 mg/dL N Blood chemistry[[id number]] Glucose [Mass/volume] in Serum or Plasma [2345-7] 09/20/2024 03:53 PM 221 mg/dL N Blood chemistry[[id number]] Glucose [Mass/volume] in Serum or Plasma [2345-7] 09/20/2024 01:59 PM 148 mg/dL N Blood chemistry[[id number]] Glucose [Mass/volume] in Serum or Plasma [2345-7] 09/20/2024 10:28 AM 142 mg/dL N Blood chemistry[[id number]] Glucose [Mass/volume] in Serum or Plasma [2345-7] 09/20/2024 08:26 AM 206 mg/dL N Blood chemistry[[id number]] Glucose [Mass/volume] in Serum or Plasma [2345-7] 09/19/2024 04:11 PM 212 mg/dL N Blood chemistry[[id number]] Glucose [Mass/volume] in Serum or Plasma [2345-7] 09/19/2024 11:47 AM 161 mg/dL N Blood chemistry[[id number]] Glucose [Mass/volume] in Serum or Plasma [2345-7] 09/19/2024 11:06 AM 265 mg/dL N Blood chemistry[[id number]] Glucose [Mass/volume] in Serum or Plasma [2345-7] 09/19/2024 08:33 AM 255 mg/dL N Blood chemistry[[id number]] Glucose [Mass/volume] in Serum or Plasma [2345-7] 09/18/2024 05:00 PM 211 mg/dL N Blood chemistry[[id number]] Glucose [Mass/volume] in Serum or Plasma [2345-7] 09/18/2024 11:32 AM 224 mg/dL N Blood chemistry[[id number]] Glucose [Mass/volume] in Serum or Plasma [2345-7] 09/18/2024 10:10 AM 150 mg/dL N Blood chemistry[[id number]] Glucose [Mass/volume] in Serum or Plasma [2345-7] 09/18/2024 08:46 AM 196 mg/dL N Blood chemistry[[id number]] Glucose [Mass/volume] in Serum or Plasma [2345-7] 09/17/2024 04:20 PM 155 mg/dL N Blood chemistry[[id number]] Glucose [Mass/volume] in Serum or Plasma [2345-7] 09/17/2024 11:43 AM 308 mg/dL N Blood chemistry[[id number]] Glucose [Mass/volume] in Serum or Plasma [2345-7] 09/17/2024 09:08 AM 102 mg/dL N Blood chemistry[[id number]] Glucose [Mass/volume] in Serum or Plasma [2345-7] 09/17/2024 08:32 AM 239 mg/dL N Blood chemistry[[id number]] Glucose [Mass/volume] in Serum or Plasma [2345-7] 09/16/2024 05:30 PM 185 mg/dL N Blood chemistry[[id number]] Glucose [Mass/volume] in Serum or Plasma [2345-7] 09/16/2024 12:25 PM 150 mg/dL N Blood chemistry[[id number]] Glucose [Mass/volume] in Serum or Plasma [2345-7] 09/16/2024 10:55 AM 141 mg/dL N Blood chemistry[[id number]] Glucose [Mass/volume] in Serum or Plasma [2345-7] 09/16/2024 08:17 AM 238 mg/dL N Blood chemistry[[id number]] Glucose [Mass/volume] in Serum or Plasma [2345-7] 09/15/2024 04:08 PM 194 mg/dL N Blood chemistry[[id number]] Glucose [Mass/volume] in Serum or Plasma [2345-7] 09/15/2024 03:39 PM 201 mg/dL N Blood chemistry[[id number]] Glucose [Mass/volume] in Serum or Plasma [2345-7] 09/15/2024 10:08 AM 122 mg/dL N Blood chemistry[[id number]] Glucose [Mass/volume] in Serum or Plasma [2345-7] 09/15/2024 09:25 AM 186 mg/dL N Blood chemistry[[id number]] Glucose [Mass/volume] in Serum or Plasma [2345-7] 09/14/2024 04:06 PM 170 mg/dL N Blood chemistry[[id number]] Glucose [Mass/volume] in Serum or Plasma [2345-7] 09/14/2024 11:18 AM 301 mg/dL N Blood chemistry[[id number]] Glucose [Mass/volume] in Serum or Plasma [2345-7] 09/14/2024 10:57 AM 123 mg/dL N Blood chemistry[[id number]] Glucose [Mass/volume] in Serum or Plasma [2345-7] 09/14/2024 08:19 AM 197 mg/dL N Blood chemistry[[id number]] Glucose [Mass/volume] in Serum or Plasma [2345-7] 09/13/2024 05:07 PM 192 mg/dL N Blood chemistry[[id number]] Glucose [Mass/volume] in Serum or Plasma [2345-7] 09/13/2024 11:09 AM 117 mg/dL N Blood chemistry[[id number]] Glucose [Mass/volume] in Serum or Plasma [2345-7] 09/13/2024 10:48 AM 171 mg/dL N Blood chemistry[[id number]] Glucose [Mass/volume] in Serum or Plasma [2345-7] 09/13/2024 08:15 AM 228 mg/dL N Blood chemistry[[id number]] Glucose [Mass/volume] in Serum or Plasma [2345-7] 09/12/2024 04:25 PM 289 mg/dL N Blood chemistry[[id number]] Glucose [Mass/volume] in Serum or Plasma [2345-7] 09/12/2024 02:01 PM 148 mg/dL N Blood chemistry[[id number]] Glucose [Mass/volume] in Serum or Plasma [2345-7] 09/12/2024 11:45 AM 127 mg/dL N Blood chemistry[[id number]] Glucose [Mass/volume] in Serum or Plasma [2345-7] 09/12/2024 08:39 AM 168 mg/dL N Blood chemistry[[id number]] Glucose [Mass/volume] in Serum or Plasma [2345-7] 09/11/2024 04:21 PM 144 mg/dL N Blood chemistry[[id number]] Glucose [Mass/volume] in Serum or Plasma [2345-7] 09/11/2024 02:09 PM 147 mg/dL N Blood chemistry[[id number]] Glucose [Mass/volume] in Serum or Plasma [2345-7] 09/11/2024 12:02 PM 145 mg/dL N Blood chemistry[[id number]] Glucose [Mass/volume] in Serum or Plasma [2345-7] 09/11/2024 10:13 AM 132 mg/dL N Blood chemistry[[id number]] Glucose [Mass/volume] in Serum or Plasma [2345-7] 09/10/2024 03:10 PM 391 mg/dL N Blood chemistry[[id number]] Glucose [Mass/volume] in Serum or Plasma [2345-7] 09/10/2024 02:38 PM 134 mg/dL N Blood chemistry[[id number]] Glucose [Mass/volume] in Serum or Plasma [2345-7] 09/10/2024 12:19 PM 164 mg/dL N Blood chemistry[[id number]] Glucose [Mass/volume] in Serum or Plasma [2345-7] 09/10/2024 08:32 AM 200 mg/dL N Blood chemistry[[id number]] Glucose [Mass/volume] in Serum or Plasma [2345-7] 09/09/2024 04:37 PM 173 mg/dL N Blood chemistry[[id number]] Glucose [Mass/volume] in Serum or Plasma [2345-7] 09/09/2024 10:49 AM 267 mg/dL N Blood chemistry[[id number]] Glucose [Mass/volume] in Serum or Plasma [2345-7] 09/09/2024 10:01 AM 106 mg/dL N Blood chemistry[[id number]] Glucose [Mass/volume] in Serum or Plasma [2345-7] 09/09/2024 08:26 AM 262 mg/dL N Blood chemistry[[id number]] Glucose [Mass/volume] in Serum or Plasma [2345-7] 09/08/2024 04:24 PM 204 mg/dL N Blood chemistry[[id number]] Glucose [Mass/volume] in Serum or Plasma [2345-7] 09/08/2024 11:19 AM 212 mg/dL N Blood chemistry[[id number]] Glucose [Mass/volume] in Serum or Plasma [2345-7] 09/08/2024 10:04 AM 116 mg/dL N Blood chemistry[[id number]] Glucose [Mass/volume] in Serum or Plasma [2345-7] 09/08/2024 09:03 AM 230 mg/dL N Blood chemistry[[id number]] Glucose [Mass/volume] in Serum or Plasma [2345-7] 09/07/2024 03:10 PM 177 mg/dL N Blood chemistry[[id number]] Glucose [Mass/volume] in Serum or Plasma [2345-7] 09/07/2024 11:19 AM 250 mg/dL N Blood chemistry[[id number]] Glucose [Mass/volume] in Serum or Plasma [2345-7] 09/07/2024 10:14 AM 93 mg/dL N Blood chemistry[[id number]] Glucose [Mass/volume] in Serum or Plasma [2345-7] 09/07/2024 07:48 AM 190 mg/dL N Blood chemistry[[id number]] Glucose [Mass/volume] in Serum or Plasma [2345-7] 09/06/2024 04:20 PM 158 mg/dL N Blood chemistry[[id number]] Glucose [Mass/volume] in Serum or Plasma [2345-7] 09/06/2024 01:34 PM 209 mg/dL N Blood chemistry[[id number]] Glucose [Mass/volume] in Serum or Plasma [2345-7] 09/06/2024 11:01 AM 119 mg/dL N Blood chemistry[[id number]] Glucose [Mass/volume] in Serum or Plasma [2345-7] 09/06/2024 08:50 AM 189 mg/dL N Blood chemistry[[id number]] Glucose [Mass/volume] in Serum or Plasma [2345-7] 09/05/2024 03:49 PM 174 mg/dL N Blood chemistry[[id number]] Glucose [Mass/volume] in Serum or Plasma [2345-7] 09/05/2024 11:33 AM 125 mg/dL N Blood chemistry[[id number]] Glucose [Mass/volume] in Serum or Plasma [2345-7] 09/05/2024 11:19 AM 205 mg/dL N Blood chemistry[[id number]] Glucose [Mass/volume] in Serum or Plasma [2345-7] 09/05/2024 09:34 AM 245 mg/dL N Blood chemistry[[id number]] Glucose [Mass/volume] in Serum or Plasma [2345-7] 09/04/2024 04:30 PM 246 mg/dL N Blood chemistry[[id number]] Glucose [Mass/volume] in Serum or Plasma [2345-7] 09/04/2024 11:32 AM 178 mg/dL N Blood chemistry[[id number]] Glucose [Mass/volume] in Serum or Plasma [2345-7] 09/04/2024 10:14 AM 123 mg/dL N Blood chemistry[[id number]] Glucose [Mass/volume] in Serum or Plasma [2345-7] 09/04/2024 09:52 AM 209 mg/dL N Blood chemistry[[id number]] Glucose [Mass/volume] in Serum or Plasma [2345-7] 09/03/2024 04:42 PM 192 mg/dL N Blood chemistry[[id number]] Glucose [Mass/volume] in Serum or Plasma [2345-7] 09/03/2024 04:10 PM 159 mg/dL N Blood chemistry[[id number]] Glucose [Mass/volume] in Serum or Plasma [2345-7] 09/03/2024 11:26 AM 192 mg/dL N Blood chemistry[[id number]] Glucose [Mass/volume] in Serum or Plasma [2345-7] 09/03/2024 10:02 AM 208 mg/dL N Blood chemistry[[id number]] Glucose [Mass/volume] in Serum or Plasma [2345-7] 09/02/2024 04:42 PM 178 mg/dL N Blood chemistry[[id number]] Glucose [Mass/volume] in Serum or Plasma [2345-7] 09/02/2024 10:58 AM 148 mg/dL N Blood chemistry[[id number]] Glucose [Mass/volume] in Serum or Plasma [2345-7] 09/02/2024 10:10 AM 122 mg/dL N Blood chemistry[[id number]] Glucose [Mass/volume] in Serum or Plasma [2345-7] 09/02/2024 08:13 AM 225 mg/dL N Blood chemistry[[id number]] Glucose [Mass/volume] in Serum or Plasma [2345-7] 09/01/2024 04:11 PM 263 mg/dL N Blood chemistry[[id number]] Glucose [Mass/volume] in Serum or Plasma [2345-7] 09/01/2024 03:25 PM 134 mg/dL N Blood chemistry[[id number]] Glucose [Mass/volume] in Serum or Plasma [2345-7] 09/01/2024 10:53 AM 134 mg/dL N Blood chemistry[[id number]] Glucose [Mass/volume] in Serum or Plasma [2345-7] 09/01/2024 09:29 AM 166 mg/dL N Blood chemistry[[id number]] Glucose [Mass/volume] in Serum or Plasma [2345-7] 08/31/2024 04:20 PM 185 mg/dL N Blood chemistry[[id number]] Glucose [Mass/volume] in Serum or Plasma [2345-7] 08/31/2024 10:46 AM 131 mg/dL N Blood chemistry[[id number]] Glucose [Mass/volume] in Serum or Plasma [2345-7] 08/31/2024 10:31 AM 198 mg/dL N Blood chemistry[[id number]] Glucose [Mass/volume] in Serum or Plasma [2345-7] 08/31/2024 08:11 AM 197 mg/dL N Blood chemistry[[id number]] Glucose [Mass/volume] in Serum or Plasma [2345-7] 08/30/2024 03:08 PM 209 mg/dL N Blood chemistry[[id number]] Glucose [Mass/volume] in Serum or Plasma [2345-7] 08/30/2024 11:39 AM 240 mg/dL N Blood chemistry[[id number]] Glucose [Mass/volume] in Serum or Plasma [2345-7] 08/30/2024 11:27 AM 85 mg/dL N Blood chemistry[[id number]] Glucose [Mass/volume] in Serum or Plasma [2345-7] 08/30/2024 10:52 AM 150 mg/dL N Blood chemistry[[id number]] Glucose [Mass/volume] in Serum or Plasma [2345-7] 08/29/2024 04:22 PM 241 mg/dL N Blood chemistry[[id number]] Glucose [Mass/volume] in Serum or Plasma [2345-7] 08/29/2024 03:34 PM 134 mg/dL N Blood chemistry[[id number]] Glucose [Mass/volume] in Serum or Plasma [2345-7] 08/29/2024 10:10 AM 133 mg/dL N Blood chemistry[[id number]] Glucose [Mass/volume] in Serum or Plasma [2345-7] 08/29/2024 09:34 AM 198 mg/dL N Blood chemistry[[id number]] Glucose [Mass/volume] in Serum or Plasma [2345-7] 08/28/2024 03:27 PM 162 mg/dL N Blood chemistry[[id number]] Glucose [Mass/volume] in Serum or Plasma [2345-7] 08/28/2024 02:22 PM 115 mg/dL N Blood chemistry[[id number]] Glucose [Mass/volume] in Serum or Plasma [2345-7] 08/28/2024 10:29 AM 132 mg/dL N Blood chemistry[[id number]] Glucose [Mass/volume] in Serum or Plasma [2345-7] 08/28/2024 09:01 AM 159 mg/dL N Blood chemistry[[id number]] Glucose [Mass/volume] in Serum or Plasma [2345-7] 08/27/2024 03:42 PM 181 mg/dL N Blood chemistry[[id number]] Glucose [Mass/volume] in Serum or Plasma [2345-7] 08/27/2024 10:18 AM 219 mg/dL N Blood chemistry[[id number]] Glucose [Mass/volume] in Serum or Plasma [2345-7] 08/27/2024 09:37 AM 158 mg/dL N Blood chemistry[[id number]] Glucose [Mass/volume] in Serum or Plasma [2345-7] 08/27/2024 07:31 AM 194 mg/dL N Blood chemistry[[id number]] Glucose [Mass/volume] in Serum or Plasma [2345-7] 08/26/2024 04:33 PM 177 mg/dL N Blood chemistry[[id number]] Glucose [Mass/volume] in Serum or Plasma [2345-7] 08/26/2024 03:42 PM 128 mg/dL N Blood chemistry[[id number]] Glucose [Mass/volume] in Serum or Plasma [2345-7] 08/26/2024 10:17 AM 207 mg/dL N Blood chemistry[[id number]] Glucose [Mass/volume] in Serum or Plasma [2345-7] 08/26/2024 09:10 AM 122 mg/dL N Blood chemistry[[id number]] Glucose [Mass/volume] in Serum or Plasma [2345-7] 08/25/2024 02:55 PM 164 mg/dL N Blood chemistry[[id number]] Glucose [Mass/volume] in Serum or Plasma [2345-7] 08/25/2024 02:48 PM 216 mg/dL N Blood chemistry[[id number]] Glucose [Mass/volume] in Serum or Plasma [2345-7] 08/25/2024 10:08 AM 145 mg/dL N Blood chemistry[[id number]] Glucose [Mass/volume] in Serum or Plasma [2345-7] 08/25/2024 08:55 AM 144 mg/dL N Blood chemistry[[id number]] Glucose [Mass/volume] in Serum or Plasma [2345-7] 08/24/2024 03:21 PM 141 mg/dL N Blood chemistry[[id number]] Glucose [Mass/volume] in Serum or Plasma [2345-7] 08/24/2024 10:34 AM 222 mg/dL N Blood chemistry[[id number]] Glucose [Mass/volume] in Serum or Plasma [2345-7] 08/24/2024 09:58 AM 154 mg/dL N Blood chemistry[[id number]] Glucose [Mass/volume] in Serum or Plasma [2345-7] 08/24/2024 07:15 AM 247 mg/dL N Blood chemistry[[id number]] Glucose [Mass/volume] in Serum or Plasma [2345-7] 08/23/2024 03:29 PM 150 mg/dL N Blood chemistry[[id number]] Glucose [Mass/volume] in Serum or Plasma [2345-7] 08/23/2024 02:41 PM 178 mg/dL N Blood chemistry[[id number]] Glucose [Mass/volume] in Serum or Plasma [2345-7] 08/23/2024 07:55 AM 173 mg/dL N Blood chemistry[[id number]] Glucose [Mass/volume] in Serum or Plasma [2345-7] 08/23/2024 07:47 AM 131 mg/dL N Blood chemistry[[id number]] Glucose [Mass/volume] in Serum or Plasma [2345-7] 08/22/2024 02:25 PM 187 mg/dL N Blood chemistry[[id number]] Glucose [Mass/volume] in Serum or Plasma [2345-7] 08/22/2024 10:46 AM 188 mg/dL N Blood chemistry[[id number]] Glucose [Mass/volume] in Serum or Plasma [2345-7] 08/22/2024 10:04 AM 136 mg/dL N Blood chemistry[[id number]] Glucose [Mass/volume] in Serum or Plasma [2345-7] 08/22/2024 07:10 AM 253 mg/dL N Blood chemistry[[id number]] Glucose [Mass/volume] in Serum or Plasma [2345-7] 08/21/2024 03:33 PM 203 mg/dL N Blood chemistry[[id number]] Glucose [Mass/volume] in Serum or Plasma [2345-7] 08/21/2024 10:11 AM 299 mg/dL N Blood chemistry[[id number]] Glucose [Mass/volume] in Serum or Plasma [2345-7] 08/21/2024 09:13 AM 144 mg/dL N Blood chemistry[[id number]] Glucose [Mass/volume] in Serum or Plasma [2345-7] 08/21/2024 07:16 AM 231 mg/dL N Blood chemistry[[id number]] Glucose [Mass/volume] in Serum or Plasma [2345-7] 08/20/2024 03:10 PM 209 mg/dL N Blood chemistry[[id number]] Glucose [Mass/volume] in Serum or Plasma [2345-7] 08/20/2024 02:48 PM 147 mg/dL N Blood chemistry[[id number]] Glucose [Mass/volume] in Serum or Plasma [2345-7] 08/20/2024 10:16 AM 141 mg/dL N Blood chemistry[[id number]] Glucose [Mass/volume] in Serum or Plasma [2345-7] 08/20/2024 09:41 AM 302 mg/dL N Blood chemistry[[id number]] Glucose [Mass/volume] in Serum or Plasma [2345-7] 08/19/2024 03:37 PM 190 mg/dL N Blood chemistry[[id number]] Glucose [Mass/volume] in Serum or Plasma [2345-7] 08/19/2024 01:35 PM 258 mg/dL N Glucose [Mass/volume] in Serum or Plasma [2345-7] 08/19/2024 01:35 PM 147 mg/dL N Blood chemistry[[id number]] Glucose [Mass/volume] in Serum or Plasma [2345-7] 08/19/2024 08:41 AM 133 mg/dL N Blood chemistry[[id number]] Glucose [Mass/volume] in Serum or Plasma [2345-7] 08/18/2024 03:51 PM 214 mg/dL N Blood chemistry[[id number]] Glucose [Mass/volume] in Serum or Plasma [2345-7] 08/18/2024 01:25 PM 151 mg/dL N Blood chemistry[[id number]] Glucose [Mass/volume] in Serum or Plasma [2345-7] 08/18/2024 09:01 AM 120 mg/dL N Blood chemistry[[id number]] Glucose [Mass/volume] in Serum or Plasma [2345-7] 08/18/2024 08:51 AM 146 mg/dL N Blood chemistry[[id number]] Glucose [Mass/volume] in Serum or Plasma [2345-7] 2024 03:26 PM 210 mg/dL N Blood chemistry[[id number]] Glucose [Mass/volume] in Serum or Plasma [2345-7] 2024 11:18 AM 223 mg/dL N Blood chemistry[[id number]] Glucose [Mass/volume] in Serum or Plasma [2345-7] 2024 09:27 AM 159 mg/dL N Blood chemistry[[id number]] Glucose [Mass/volume] in Serum or Plasma [2345-7] 2024 07:18 AM 245 mg/dL N Blood chemistry[[id number]] Glucose [Mass/volume] in Serum or Plasma [2345-7] 08/16/2024 02:40 PM 240 mg/dL N Blood chemistry[[id number]] Glucose [Mass/volume] in Serum or Plasma [2345-7] 08/16/2024 10:49 AM 238 mg/dL N Blood chemistry[[id number]] Glucose [Mass/volume] in Serum or Plasma [2345-7] 08/16/2024 10:08 AM 142 mg/dL N Blood chemistry[[id number]] Glucose [Mass/volume] in Serum or Plasma [2345-7] 08/16/2024 07:17 AM 203 mg/dL N Blood chemistry[[id number]] Glucose [Mass/volume] in Serum or Plasma [2345-7] 08/15/2024 03:44 PM 303 mg/dL N Blood chemistry[[id number]] Glucose [Mass/volume] in Serum or Plasma [2345-7] 08/15/2024 01:06 PM 116 mg/dL N Blood chemistry[[id number]] Glucose [Mass/volume] in Serum or Plasma [2345-7] 08/15/2024 09:28 AM 133 mg/dL N Blood chemistry[[id number]] Glucose [Mass/volume] in Serum or Plasma [2345-7] 08/15/2024 09:15 AM 124 mg/dL N Blood chemistry[[id number]] Glucose [Mass/volume] in Serum or Plasma [2345-7] 08/14/2024 04:44 PM 160 mg/dL N Blood chemistry[[id number]] Glucose [Mass/volume] in Serum or Plasma [2345-7] 08/14/2024 12:46 PM 134 mg/dL N Blood chemistry[[id number]] Glucose [Mass/volume] in Serum or Plasma [2345-7] 08/14/2024 10:48 AM 141 mg/dL N Blood chemistry[[id number]] Glucose [Mass/volume] in Serum or Plasma [2345-7] 08/14/2024 09:37 AM 160 mg/dL N Blood chemistry[[id number]] Glucose [Mass/volume] in Serum or Plasma [2345-7] 08/13/2024 02:49 PM 226 mg/dL N Blood chemistry[[id number]] Glucose [Mass/volume] in Serum or Plasma [2345-7] 08/13/2024 10:21 AM 243 mg/dL N Blood chemistry[[id number]] Glucose [Mass/volume] in Serum or Plasma [2345-7] 08/13/2024 09:23 AM 174 mg/dL N Blood chemistry[[id number]] Glucose [Mass/volume] in Serum or Plasma [2345-7] 08/13/2024 07:27 AM 325 mg/dL N COVID-19 Test Viral PCR null flavor [null] 08/12/2024 04:00 PM See note NEG COVID-19 Test Viral PCR Blood chemistry[[id number]] Glucose [Mass/volume] in Serum or Plasma [2345-7] 08/12/2024 03:48 PM 208 mg/dL N Blood chemistry[[id number]] Glucose [Mass/volume] in Serum or Plasma [2345-7] 08/12/2024 10:51 AM 181 mg/dL N Blood chemistry[[id number]] Glucose [Mass/volume] in Serum or Plasma [2345-7] 08/12/2024 09:02 AM 139 mg/dL N Blood chemistry[[id number]] Glucose [Mass/volume] in Serum or Plasma [2345-7] 08/12/2024 07:47 AM 186 mg/dL N Blood chemistry[[id number]] Glucose [Mass/volume] in Serum or Plasma [2345-7] 08/11/2024 03:29 PM 214 mg/dL N Blood chemistry[[id number]] Glucose [Mass/volume] in Serum or Plasma [2345-7] 08/11/2024 12:05 PM 241 mg/dL N Blood chemistry[[id number]] Glucose [Mass/volume] in Serum or Plasma [2345-7] 08/11/2024 09:35 AM 171 mg/dL N Blood chemistry[[id number]] Glucose [Mass/volume] in Serum or Plasma [2345-7] 08/11/2024 09:00 AM 201 mg/dL N COVID-19 Test Viral Antigen null flavor [null] 08/10/2024 04:00 PM See note NEG COVID-19 Test Viral Antigen Blood chemistry[[id number]] Glucose [Mass/volume] in Serum or Plasma [2345-7] 08/10/2024 03:20 PM 195 mg/dL N Blood chemistry[[id number]] Glucose [Mass/volume] in Serum or Plasma [2345-7] 08/10/2024 10:14 AM 209 mg/dL N Blood chemistry[[id number]] Glucose [Mass/volume] in Serum or Plasma [2345-7] 08/10/2024 09:19 AM 149 mg/dL N Blood chemistry[[id number]] Glucose [Mass/volume] in Serum or Plasma [2345-7] 08/10/2024 07:19 AM 288 mg/dL N Blood chemistry[[id number]] Glucose [Mass/volume] in Serum or Plasma [2345-7] 08/09/2024 02:28 PM 202 mg/dL N Blood chemistry[[id number]] Glucose [Mass/volume] in Serum or Plasma [2345-7] 08/09/2024 10:36 AM 154 mg/dL N Blood chemistry[[id number]] Glucose [Mass/volume] in Serum or Plasma [2345-7] 08/09/2024 07:43 AM 146 mg/dL N Blood chemistry[[id number]] Glucose [Mass/volume] in Serum or Plasma [2345-7] 08/09/2024 07:33 AM 257 mg/dL N Blood chemistry[[id number]] Glucose [Mass/volume] in Serum or Plasma [2345-7] 08/08/2024 03:13 PM 136 mg/dL N Blood chemistry[[id number]] Glucose [Mass/volume] in Serum or Plasma [2345-7] 08/08/2024 11:23 AM 270 mg/dL N Blood chemistry[[id number]] Glucose [Mass/volume] in Serum or Plasma [2345-7] 08/08/2024 10:01 AM 147 mg/dL N Blood chemistry[[id number]] Glucose [Mass/volume] in Serum or Plasma [2345-7] 08/08/2024 08:34 AM 211 mg/dL N Blood chemistry[[id number]] Glucose [Mass/volume] in Serum or Plasma [2345-7] 08/07/2024 03:35 PM 158 mg/dL N Blood chemistry[[id number]] Glucose [Mass/volume] in Serum or Plasma [2345-7] 08/07/2024 11:19 AM 211 mg/dL N Blood chemistry[[id number]] Glucose [Mass/volume] in Serum or Plasma [2345-7] 08/07/2024 09:28 AM 138 mg/dL N Blood chemistry[[id number]] Glucose [Mass/volume] in Serum or Plasma [2345-7] 08/07/2024 07:25 AM 136 mg/dL N Blood chemistry[[id number]] Glucose [Mass/volume] in Serum or Plasma [2345-7] 08/06/2024 03:20 PM 165 mg/dL N Blood chemistry[[id number]] Glucose [Mass/volume] in Serum or Plasma [2345-7] 08/06/2024 11:45 AM 205 mg/dL N Blood chemistry[[id number]] Glucose [Mass/volume] in Serum or Plasma [2345-7] 08/06/2024 11:39 AM 144 mg/dL N Blood chemistry[[id number]] Glucose [Mass/volume] in Serum or Plasma [2345-7] 08/06/2024 09:49 AM 186 mg/dL N Blood chemistry[[id number]] Glucose [Mass/volume] in Serum or Plasma [2345-7] 08/05/2024 03:31 PM 304 mg/dL N Blood chemistry[[id number]] Glucose [Mass/volume] in Serum or Plasma [2345-7] 08/05/2024 02:59 PM 145 mg/dL N Blood chemistry[[id number]] Glucose [Mass/volume] in Serum or Plasma [2345-7] 08/05/2024 10:08 AM 137 mg/dL N Blood chemistry[[id number]] Glucose [Mass/volume] in Serum or Plasma [2345-7] 08/05/2024 08:59 AM 188 mg/dL N Blood chemistry[[id number]] Glucose [Mass/volume] in Serum or Plasma [2345-7] 08/04/2024 01:47 PM 172 mg/dL N Blood chemistry[[id number]] Glucose [Mass/volume] in Serum or Plasma [2345-7] 08/04/2024 01:12 PM 149 mg/dL N Blood chemistry[[id number]] Glucose [Mass/volume] in Serum or Plasma [2345-7] 08/04/2024 09:01 AM 177 mg/dL N Blood chemistry[[id number]] Glucose [Mass/volume] in Serum or Plasma [2345-7] 08/04/2024 08:00 AM 214 mg/dL N Blood chemistry[[id number]] Glucose [Mass/volume] in Serum or Plasma [2345-7] 08/03/2024 03:20 PM 173 mg/dL N Blood chemistry[[id number]] Glucose [Mass/volume] in Serum or Plasma [2345-7] 08/03/2024 10:20 AM 178 mg/dL N Blood chemistry[[id number]] Glucose [Mass/volume] in Serum or Plasma [2345-7] 08/03/2024 09:44 AM 125 mg/dL N Blood chemistry[[id number]] Glucose [Mass/volume] in Serum or Plasma [2345-7] 08/03/2024 07:19 AM 242 mg/dL N Blood chemistry[[id number]] Glucose [Mass/volume] in Serum or Plasma [2345-7] 08/02/2024 03:17 PM 180 mg/dL N Blood chemistry[[id number]] Glucose [Mass/volume] in Serum or Plasma [2345-7] 08/02/2024 09:39 AM 287 mg/dL N Blood chemistry[[id number]] Glucose [Mass/volume] in Serum or Plasma [2345-7] 08/02/2024 09:03 AM 150 mg/dL N Blood chemistry[[id number]] Glucose [Mass/volume] in Serum or Plasma [2345-7] 08/02/2024 07:17 AM 293 mg/dL N Blood chemistry[[id number]] Glucose [Mass/volume] in Serum or Plasma [2345-7] 08/01/2024 03:09 PM 388 mg/dL N Blood chemistry[[id number]] Glucose [Mass/volume] in Serum or Plasma [2345-7] 08/01/2024 01:00 PM 210 mg/dL N Blood chemistry[[id number]] Glucose [Mass/volume] in Serum or Plasma [2345-7] 08/01/2024 09:13 AM 159 mg/dL N Blood chemistry[[id number]] Glucose [Mass/volume] in Serum or Plasma [2345-7] 08/01/2024 07:49 AM 204 mg/dL N Blood chemistry[[id number]] Glucose [Mass/volume] in Serum or Plasma [2345-7] 07/31/2024 03:40 PM 215 mg/dL N Blood chemistry[[id number]] Glucose [Mass/volume] in Serum or Plasma [2345-7] 07/31/2024 01:57 PM 137 mg/dL N Blood chemistry[[id number]] Glucose [Mass/volume] in Serum or Plasma [2345-7] 07/31/2024 10:15 AM 148 mg/dL N Blood chemistry[[id number]] Glucose [Mass/volume] in Serum or Plasma [2345-7] 07/31/2024 09:55 AM 159 mg/dL N Blood chemistry[[id number]] Glucose [Mass/volume] in Serum or Plasma [2345-7] 07/30/2024 03:11 PM 137 mg/dL N Blood chemistry[[id number]] Glucose [Mass/volume] in Serum or Plasma [2345-7] 07/30/2024 10:05 AM 223 mg/dL N Blood chemistry[[id number]] Glucose [Mass/volume] in Serum or Plasma [2345-7] 07/30/2024 09:23 AM 172 mg/dL N Blood chemistry[[id number]] Glucose [Mass/volume] in Serum or Plasma [2345-7] 07/30/2024 07:34 AM 233 mg/dL N Blood chemistry[[id number]] Glucose [Mass/volume] in Serum or Plasma [2345-7] 07/29/2024 02:52 PM 365 mg/dL N Blood chemistry[[id number]] Glucose [Mass/volume] in Serum or Plasma [2345-7] 07/29/2024 10:39 AM 378 mg/dL N Blood chemistry[[id number]] Glucose [Mass/volume] in Serum or Plasma [2345-7] 07/29/2024 09:53 AM 138 mg/dL N Blood chemistry[[id number]] Glucose [Mass/volume] in Serum or Plasma [2345-7] 07/29/2024 07:34 AM 269 mg/dL N Blood chemistry[[id number]] Glucose [Mass/volume] in Serum or Plasma [2345-7] 07/28/2024 02:58 PM 194 mg/dL N Blood chemistry[[id number]] Glucose [Mass/volume] in Serum or Plasma [2345-7] 07/28/2024 11:12 AM 264 mg/dL N Blood chemistry[[id number]] Glucose [Mass/volume] in Serum or Plasma [2345-7] 07/28/2024 09:15 AM 126 mg/dL N Blood chemistry[[id number]] Glucose [Mass/volume] in Serum or Plasma [2345-7] 07/28/2024 07:30 AM 148 mg/dL N Blood chemistry[[id number]] Glucose [Mass/volume] in Serum or Plasma [2345-7] 07/27/2024 02:31 PM 272 mg/dL N Blood chemistry[[id number]] Glucose [Mass/volume] in Serum or Plasma [2345-7] 07/27/2024 10:23 AM 234 mg/dL N Blood chemistry[[id number]] Glucose [Mass/volume] in Serum or Plasma [2345-7] 07/27/2024 09:47 AM 174 mg/dL N Blood chemistry[[id number]] Glucose [Mass/volume] in Serum or Plasma [2345-7] 07/27/2024 07:27 AM 260 mg/dL N Blood chemistry[[id number]] Glucose [Mass/volume] in Serum or Plasma [2345-7] 07/26/2024 02:39 PM 271 mg/dL N Blood chemistry[[id number]] Glucose [Mass/volume] in Serum or Plasma [2345-7] 07/26/2024 01:32 PM 245 mg/dL N Blood chemistry[[id number]] Glucose [Mass/volume] in Serum or Plasma [2345-7] 07/26/2024 10:19 AM 195 mg/dL N Blood chemistry[[id number]] Glucose [Mass/volume] in Serum or Plasma [2345-7] 07/26/2024 09:24 AM 218 mg/dL N Blood chemistry[[id number]] Glucose [Mass/volume] in Serum or Plasma [2345-7] 07/25/2024 04:49 PM 286 mg/dL N Blood chemistry[[id number]] Glucose [Mass/volume] in Serum or Plasma [2345-7] 07/25/2024 10:33 AM 213 mg/dL N Blood chemistry[[id number]] Glucose [Mass/volume] in Serum or Plasma [2345-7] 07/25/2024 08:50 AM 176 mg/dL N Blood chemistry[[id number]] Glucose [Mass/volume] in Serum or Plasma [2345-7] 07/25/2024 07:30 AM 221 mg/dL N Blood chemistry[[id number]] Glucose [Mass/volume] in Serum or Plasma [2345-7] 07/24/2024 03:46 PM 256 mg/dL N Blood chemistry[[id number]] Glucose [Mass/volume] in Serum or Plasma [2345-7] 07/24/2024 03:41 PM 162 mg/dL N Blood chemistry[[id number]] Glucose [Mass/volume] in Serum or Plasma [2345-7] 07/24/2024 09:03 AM 198 mg/dL N Blood chemistry[[id number]] Glucose [Mass/volume] in Serum or Plasma [2345-7] 07/23/2024 03:15 PM 256 mg/dL N Blood chemistry[[id number]] Glucose [Mass/volume] in Serum or Plasma [2345-7] 07/23/2024 02:36 PM 148 mg/dL N Blood chemistry[[id number]] Glucose [Mass/volume] in Serum or Plasma [2345-7] 07/23/2024 09:52 AM 171 mg/dL N Blood chemistry[[id number]] Glucose [Mass/volume] in Serum or Plasma [2345-7] 07/23/2024 08:36 AM 254 mg/dL N Blood chemistry[[id number]] Glucose [Mass/volume] in Serum or Plasma [2345-7] 07/22/2024 02:51 PM 254 mg/dL N Blood chemistry[[id number]] Glucose [Mass/volume] in Serum or Plasma [2345-7] 07/22/2024 10:13 AM 277 mg/dL N Blood chemistry[[id number]] Glucose [Mass/volume] in Serum or Plasma [2345-7] 07/22/2024 09:56 AM 139 mg/dL N Blood chemistry[[id number]] Glucose [Mass/volume] in Serum or Plasma [2345-7] 07/22/2024 07:28 AM 232 mg/dL N Blood chemistry[[id number]] Glucose [Mass/volume] in Serum or Plasma [2345-7] 07/21/2024 02:16 PM 213 mg/dL N Blood chemistry[[id number]] Glucose [Mass/volume] in Serum or Plasma [2345-7] 07/21/2024 11:12 AM 229 mg/dL N Blood chemistry[[id number]] Glucose [Mass/volume] in Serum or Plasma [2345-7] 07/21/2024 09:14 AM 155 mg/dL N Blood chemistry[[id number]] Glucose [Mass/volume] in Serum or Plasma [2345-7] 07/21/2024 07:22 AM 225 mg/dL N Blood chemistry[[id number]] Glucose [Mass/volume] in Serum or Plasma [2345-7] 07/20/2024 02:33 PM 185 mg/dL N Blood chemistry[[id number]] Glucose [Mass/volume] in Serum or Plasma [2345-7] 07/20/2024 10:15 AM 275 mg/dL N Blood chemistry[[id number]] Glucose [Mass/volume] in Serum or Plasma [2345-7] 07/20/2024 09:50 AM 152 mg/dL N Blood chemistry[[id number]] Glucose [Mass/volume] in Serum or Plasma [2345-7] 07/20/2024 07:15 AM 198 mg/dL N Blood chemistry[[id number]] Glucose [Mass/volume] in Serum or Plasma [2345-7] 07/19/2024 02:42 PM 203 mg/dL N Blood chemistry[[id number]] Glucose [Mass/volume] in Serum or Plasma [2345-7] 07/19/2024 10:18 AM 167 mg/dL N Blood chemistry[[id number]] Glucose [Mass/volume] in Serum or Plasma [2345-7] 07/19/2024 09:16 AM 178 mg/dL N Blood chemistry[[id number]] Glucose [Mass/volume] in Serum or Plasma [2345-7] 07/19/2024 07:27 AM 197 mg/dL N Blood chemistry[[id number]] Glucose [Mass/volume] in Serum or Plasma [2345-7] 07/18/2024 03:55 PM 340 mg/dL N Blood chemistry[[id number]] Glucose [Mass/volume] in Serum or Plasma [2345-7] 07/18/2024 02:18 PM 132 mg/dL N Blood chemistry[[id number]] Glucose [Mass/volume] in Serum or Plasma [2345-7] 07/18/2024 09:00 AM 170 mg/dL N Blood chemistry[[id number]] Glucose [Mass/volume] in Serum or Plasma [2345-7] 07/18/2024 08:00 AM 149 mg/dL N Blood chemistry[[id number]] Glucose [Mass/volume] in Serum or Plasma [2345-7] 07/17/2024 03:46 PM 240 mg/dL N Blood chemistry[[id number]] Glucose [Mass/volume] in Serum or Plasma [2345-7] 07/17/2024 02:19 PM 197 mg/dL N Blood chemistry[[id number]] Glucose [Mass/volume] in Serum or Plasma [2345-7] 07/17/2024 10:29 AM 350 mg/dL N Blood chemistry[[id number]] Glucose [Mass/volume] in Serum or Plasma [2345-7] 07/17/2024 08:09 AM 148 mg/dL N Blood chemistry[[id number]] Glucose [Mass/volume] in Serum or Plasma [2345-7] 07/16/2024 03:43 PM 172 mg/dL N Blood chemistry[[id number]] Glucose [Mass/volume] in Serum or Plasma [2345-7] 07/16/2024 10:10 AM 355 mg/dL N Blood chemistry[[id number]] Glucose [Mass/volume] in Serum or Plasma [2345-7] 07/16/2024 10:02 AM 118 mg/dL N Blood chemistry[[id number]] Glucose [Mass/volume] in Serum or Plasma [2345-7] 07/16/2024 07:37 AM 148 mg/dL N Blood chemistry[[id number]] Glucose [Mass/volume] in Serum or Plasma [2345-7] 07/15/2024 03:28 PM 99 mg/dL N Blood chemistry[[id number]] Glucose [Mass/volume] in Serum or Plasma [2345-7] 07/15/2024 10:26 AM 231 mg/dL N Blood chemistry[[id number]] Glucose [Mass/volume] in Serum or Plasma [2345-7] 07/15/2024 09:00 AM 135 mg/dL N Blood chemistry[[id number]] Glucose [Mass/volume] in Serum or Plasma [2345-7] 07/15/2024 07:16 AM 273 mg/dL N Blood chemistry[[id number]] Glucose [Mass/volume] in Serum or Plasma [2345-7] 07/14/2024 10:18 AM 284 mg/dL N Blood chemistry[[id number]] Glucose [Mass/volume] in Serum or Plasma [2345-7] 07/14/2024 09:03 AM 141 mg/dL N Blood chemistry[[id number]] Glucose [Mass/volume] in Serum or Plasma [2345-7] 07/14/2024 07:35 AM 271 mg/dL N Blood chemistry[[id number]] Glucose [Mass/volume] in Serum or Plasma [2345-7] 07/14/2024 05:27 AM 226 mg/dL N Blood chemistry[[id number]] Glucose [Mass/volume] in Serum or Plasma [2345-7] 07/13/2024 03:34 PM 221 mg/dL N Blood chemistry[[id number]] Glucose [Mass/volume] in Serum or Plasma [2345-7] 07/13/2024 10:59 AM 254 mg/dL N Blood chemistry[[id number]] Glucose [Mass/volume] in Serum or Plasma [2345-7] 07/13/2024 09:38 AM 148 mg/dL N Blood chemistry[[id number]] Glucose [Mass/volume] in Serum or Plasma [2345-7] 07/13/2024 07:20 AM 289 mg/dL N Blood chemistry[[id number]] Glucose [Mass/volume] in Serum or Plasma [2345-7] 07/12/2024 02:55 PM 177 mg/dL N Blood chemistry[[id number]] Glucose [Mass/volume] in Serum or Plasma [2345-7] 07/12/2024 01:30 PM 187 mg/dL N Blood chemistry[[id number]] Glucose [Mass/volume] in Serum or Plasma [2345-7] 07/12/2024 09:35 AM 143 mg/dL N Blood chemistry[[id number]] Glucose [Mass/volume] in Serum or Plasma [2345-7] 07/12/2024 09:10 AM 223 mg/dL N Blood chemistry[[id number]] Glucose [Mass/volume] in Serum or Plasma [2345-7] 07/11/2024 03:59 PM 175 mg/dL N Blood chemistry[[id number]] Glucose [Mass/volume] in Serum or Plasma [2345-7] 07/11/2024 10:21 AM 175 mg/dL N Blood chemistry[[id number]] Glucose [Mass/volume] in Serum or Plasma [2345-7] 07/11/2024 10:03 AM 164 mg/dL N Blood chemistry[[id number]] Glucose [Mass/volume] in Serum or Plasma [2345-7] 07/11/2024 07:14 AM 191 mg/dL N Blood chemistry[[id number]] Glucose [Mass/volume] in Serum or Plasma [2345-7] 07/10/2024 04:46 PM 134 mg/dL N Blood chemistry[[id number]] Glucose [Mass/volume] in Serum or Plasma [2345-7] 07/10/2024 02:52 PM 147 mg/dL N Blood chemistry[[id number]] Glucose [Mass/volume] in Serum or Plasma [2345-7] 07/10/2024 11:17 AM 270 mg/dL N Blood chemistry[[id number]] Glucose [Mass/volume] in Serum or Plasma [2345-7] 07/10/2024 09:17 AM 178 mg/dL N Blood chemistry[[id number]] Glucose [Mass/volume] in Serum or Plasma [2345-7] 07/10/2024 08:38 AM 173 mg/dL N Blood chemistry[[id number]] Glucose [Mass/volume] in Serum or Plasma [2345-7] 07/09/2024 02:54 PM 194 mg/dL N Blood chemistry[[id number]] Glucose [Mass/volume] in Serum or Plasma [2345-7] 07/09/2024 09:33 AM 173 mg/dL N Blood chemistry[[id number]] Glucose [Mass/volume] in Serum or Plasma [2345-7] 07/08/2024 03:16 PM 248 mg/dL N Blood chemistry[[id number]] Glucose [Mass/volume] in Serum or Plasma [2345-7] 07/08/2024 01:33 PM 165 mg/dL N COVID-19 Test Viral Antigen null flavor [null] 07/08/2024 12:10 PM See note NEG COVID-19 Test Viral Antigen Blood chemistry[[id number]] Glucose [Mass/volume] in Serum or Plasma [2345-7] 07/08/2024 09:35 AM 117 mg/dL N Blood chemistry[[id number]] Glucose [Mass/volume] in Serum or Plasma [2345-7] 07/08/2024 08:18 AM 173 mg/dL N Allergies, adverse reactions, alerts No known allergies and adverse reactions Immunizations Vaccine Route Date Status COVID-19 Vaccine Unassigned Route of Administration Refused Medications Medication Instructions Route Dosage Frequency Start Date Stop Date Indications Status Lamictal (lamotrigine) 25 mg tablet (Lamictal (lamotrigine)) 1 tablet, oral, Once A Day, mood stabilizer oral 1.0 1.0 d 01/19 Anxiety disorder, unspecified Active aspirin 81 mg tablet,chewabl e (aspirin) 81 mg, oral, Once A Day oral 1.0 1.0 d 2024 Cerebral infarction, unspecified Active Brilinta (ticagrelor) 90 mg tablet (Brilinta (ticagrelor)) 90 mg, oral, Twice A Day oral 1.0 12.0 h 01/20 Cerebral infarction, unspecified Active Paxlovid (nirmatrelvir- ritonavir) 150-100 mg tablets,dose pack (Paxlovid (nirmatrelvir- ritonavir)) two tablets, oral, Twice A Day oral 1.0 12.0 h 11/15 2019-nCoV acute respiratory disease Active magnesium oxide 400 mg (241.3 mg magnesium) tablet (magnesium oxide) 1 tablet, oral, Once A Day oral 1.0 1.0 d 01/20 Anemia, unspecified Active trazodone 150 mg tablet (trazodone) 0.5 tablet, oral, At Bedtime oral 1.0 2024 Primary insomnia Active Imodium A-D (loperamide) 2 mg tablet (Imodium A-D (loperamide)) 2 mg, oral, Every 6 Hours - PRN oral 1.0 6.0 h 2024 Active Senna Lax (sennosides) 8.6 mg tablet (Senna Lax (sennosides)) 2 tabs, oral, Once A Day - PRN oral 1.0 1.0 d 01/20 Constipation, unspecified Active polyethylene glycol 3350 17 gram/dose powder (polyethylene glycol 3350) 17 grams, oral, Once A Day - PRN, for constipation oral 1.0 1.0 d 2024 Active Ferrex 150 (polysaccharid e iron complex) 150 mg iron capsule (Ferrex 150 (polysaccharid e iron complex)) 1 capsule, oral, Once A Day Every Other Day oral 1.0 1.0 d 2024 Anemia, unspecified Active folic acid 1 mg tablet (folic acid) 1 tablet, oral, Once A Day, deficiency oral 1.0 1.0 d 2024 Active Vitamin C (ascorbic acid (vitamin c)) 500 mg tablet (Vitamin C (ascorbic acid (vitamin c))) 1 tablet, oral, Once A Day oral 1.0 1.0 d 2024 Active sennosides-doc usate sodium 8.6-50 mg tablet (sennosides-do cusate sodium) 1 tab, oral, At Bedtime - PRN oral 1.0 01/20 Constipation, unspecified Active bupropion HCl 150 mg tablet extended release 24 hr (bupropion HCl) 1 tablet, oral, Once A Day oral 1.0 1.0 d 2024 Major depressive disorder, recurrent, unspecified Active Biofreeze (menthol) (menthol) 5 % gel (Biofreeze (menthol) (menthol)) 5%, topical, Twice A Day - PRN, apply to douglas. knees as needed for pain topical 1.0 12.0 h 02/11 Active Biofreeze (menthol) (menthol) 5 % gel (Biofreeze (menthol) (menthol)) 5%, topical, Three Times A Day, apply to douglas. knees as needed for pain topical 1.0 8.0 h 2024 Active Metamucil (psyllium husk) 3.4 gram/5.4 gram powder (Metamucil (psyllium husk)) 1 TBSP, oral, At Bedtime, diarrhea oral 1.0 2024 Active ciprofloxacin HCl 0.3 % drops (ciprofloxacin HCl) two drops, ophthalmic (eye), Four Times A Day 1.0 6.0 h 03/04 Active acetaminophen 500 mg tablet (acetaminophen ) 2 tabs, oral, Every 8 Hours - PRN, as needed for pain oral 1.0 8.0 h 2024 Active Admelog SoloStar U-100 Insulin (insulin lispro) 100 unit/mL insulin pen (Admelog SoloStar U-100 Insulin (insulin lispro)) Per Sliding Scale, subcutaneous, Before Meals and [...] is 401 to 450, give 13 Units. subcutane ous 1.0 2024 Type 2 diabetes mellitus with diabetic cataract Active aspirin 81 mg tablet,chewabl e (aspirin) 81 mg, oral, Once A Day oral 1.0 1.0 d 2024 Cerebral infarction, unspecified Active atorvastatin 40 mg tablet (atorvastatin) 40 mg, oral, At Bedtime oral 1.0 2024 Pure hyperglyceride terri Active clotrimazole-b etamethasone 1-0.05 % cream (clotrimazole- betamethasone) one application, topical, Twice A Day - PRN topical 1.0 12.0 h 2024 Active Biofreeze (menthol) (menthol) 5 % gel (Biofreeze (menthol) (menthol)) one application, topical, Three Times A Day - PRN topical 1.0 8.0 h 2024 Hemiplegia and hemiparesis following cerebral infarction affecting left non-dominant side Active Dulcolax (bisacodyl) (bisacodyl) 10 mg suppository (Dulcolax (bisacodyl) (bisacodyl)) 10 mg, rectal, Once A Day - PRN rectal 1.0 1.0 d 2024 Constipation, unspecified Active Ferrex 150 (polysaccharid e iron complex) 150 mg iron capsule (Ferrex 150 (polysaccharid e iron complex)) one capsule, oral, Once A Day oral 1.0 1.0 d 2024 Anemia, unspecified Active finasteride 5 mg tablet (finasteride) 5 mg, oral, Once A Day oral 1.0 1.0 d 2024 Benign prostatic hyperplasia with lower urinary tract symptoms Active folic acid 1 mg tablet (folic acid) 1 mg, oral, Once A Day oral 1.0 1.0 d 2024 Anemia, unspecified Active gabapentin 100 mg capsule (gabapentin) 100 mg, oral, Three Times A Day oral 1.0 8.0 h 2024 Hemiplegia and hemiparesis following cerebral infarction affecting left non-dominant side Active insulin glargine-yfgn 100 unit/mL (3 mL) insulin pen (insulin glargine-yfgn) 15 units, subcutaneous, At Bedtime subcutane ous 1.0 2024 Type 2 diabetes mellitus with diabetic cataract Active Keppra (levetiracetam ) 500 mg tablet (Keppra (levetiracetam )) 500 mg, oral, Twice A Day oral 1.0 12.0 h 2024 Post traumatic seizures Active Lexapro (escitalopram oxalate) 10 mg tablet (Lexapro (escitalopram oxalate)) 1 tab, oral, Once A Morning oral 1.0 2024 Major depressive disorder, recurrent, unspecified Active loperamide 2 mg capsule (loperamide) one capsule, oral, Three Times A Day - PRN oral 1.0 8.0 h 2024 Cholesterolosi s of gallbladder Active magnesium oxide 400 mg (241.3 mg magnesium) tablet (magnesium oxide) 1 tab, oral, Once A Day oral 1.0 1.0 d 2024 Muscle weakness (generalized) Active melatonin 3 mg tablet (melatonin) 3 mg, oral, At Bedtime oral 1.0 2024 Primary insomnia Active Metamucil (psyllium husk) 3.4 gram/5.4 gram powder (Metamucil (psyllium husk)) 3.4 grams, oral, Once A Day oral 1.0 1.0 d 2024 Constipation, unspecified Active metoprolol succinate 50 mg tablet extended release 24 hr (metoprolol succinate) 50 mg, oral, Once A Day oral 1.0 1.0 d 2024 Ventricular tachycardia, unspecified Active omeprazole 20 mg capsule,delaye d release(DR/EC) (omeprazole) 1 capsule, oral, Once A Day oral 1.0 1.0 d 2024 Gastro-esophag eal reflux disease without esophagitis Active Miralax (polyethylene glycol 3350) 17 gram/dose powder (Miralax (polyethylene glycol 3350)) 17 grams, oral, Once A Day oral 1.0 1.0 d 2024 Constipation, unspecified Active Remeron (mirtazapine) 15 mg tablet (Remeron (mirtazapine)) 1 tab, oral, At Bedtime oral 1.0 2024 Major depressive disorder, recurrent, unspecified Active tamsulosin 0.4 mg capsule (tamsulosin) 0.4 mg, oral, At Bedtime oral 1.0 2024 Benign prostatic hyperplasia with lower urinary tract symptoms Active Bactrim DS (sulfamethoxaz ole-trimethopr im) 800-160 mg tablet (Bactrim DS (sulfamethoxaz ole-trimethopr im)) 1, oral, Twice A Day oral 1.0 12.0 h 06/30 Urinary tract infection, site not specified Active mirtazapine 30 mg tablet (mirtazapine) 1 tablet, oral, At Bedtime oral 1.0 06/07 Primary insomnia Active nitroglycerin 0.4 mg tablet, sublingual (nitroglycerin ) 0.4 mg, sublingual, Once - One Time, Give once then obtain VS and call [employer]. sublingua l 1.0 06/12 Active Vital Signs Date Vital Result Comment 11/03/2024 02:58 PM Temperature (8310-5) 98 [degF] Oxygen Saturation (80950-2) 98 % Respiratory Rate (9279-1) 18 /min Heart Rate (8867-4) 62 /min Blood Pressure Systolic (8480-6) 142 mm[Hg] Blood Pressure Diastolic (8462-4) 75 mm[Hg] 11/03/2024 01:00 AM Temperature (8310-5) 98.2 [degF] Oxygen Saturation (40018-4) 96 % Respiratory Rate (9279-1) 20 /min Heart Rate (8867-4) 53 /min Blood Pressure Systolic (8480-6) 137 mm[Hg] Blood Pressure Diastolic (8462-4) 66 mm[Hg] 11/02/2024 08:40 PM Temperature (8310-5) 98.3 [degF] Oxygen Saturation (19776-2) 99 % Respiratory Rate (9279-1) 20 /min Heart Rate (8867-4) 60 /min Blood Pressure Systolic (8480-6) 144 mm[Hg] Blood Pressure Diastolic (8462-4) 71 mm[Hg] 11/04/2024 10:16 AM Temperature (8310-5) 98.1 [degF] Oxygen Saturation (06130-4) 96 % Respiratory Rate (9279-1) 16 /min Heart Rate (8867-4) 60 /min Blood Pressure Systolic (8480-6) 120 mm[Hg] Blood Pressure Diastolic (8462-4) 59 mm[Hg] 11/04/2024 10:17 PM Temperature (8310-5) 98.2 [degF] Oxygen Saturation (33707-6) 98 % Respiratory Rate (9279-1) 18 /min Heart Rate (8867-4) 82 /min Blood Pressure Systolic (8480-6) 138 mm[Hg] Blood Pressure Diastolic (8462-4) 74 mm[Hg] 11/05/2024 09:04 AM Temperature (8310-5) 97.9 [degF] Oxygen Saturation (82973-8) 98 % Respiratory Rate (9279-1) 18 /min Heart Rate (8867-4) 76 /min Blood Pressure Systolic (8480-6) 124 mm[Hg] Blood Pressure Diastolic (8462-4) 78 mm[Hg] 11/05/2024 05:50 PM Temperature (8310-5) 98.3 [degF] Oxygen Saturation (52097-0) 95 % Respiratory Rate (9279-1) 18 /min Heart Rate (8867-4) 73 /min Blood Pressure Systolic (8480-6) 110 mm[Hg] Blood Pressure Diastolic (8462-4) 58 mm[Hg] 11/05/2024 12:32 PM Body Weight (43699-1) 198 [lb_av] Body Mass Index (50502-2) 28.41 kg/m2 11/06/2024 12:23 PM Temperature (8310-5) 98.1 [degF] Oxygen Saturation (06675-7) 96 % Respiratory Rate (9279-1) 16 /min Heart Rate (8867-4) 72 /min Blood Pressure Systolic (8480-6) 120 mm[Hg] Blood Pressure Diastolic (8462-4) 68 mm[Hg] 11/07/2024 09:41 PM Temperature (8310-5) 98.3 [degF] Oxygen Saturation (51282-8) 98 % Respiratory Rate (9279-1) 16 /min Heart Rate (8867-4) 70 /min Blood Pressure Systolic (8480-6) 118 mm[Hg] Blood Pressure Diastolic (8462-4) 67 mm[Hg] 11/08/2024 09:42 PM Temperature (8310-5) 98.2 [degF] Oxygen Saturation (52963-7) 96 % Respiratory Rate (9279-1) 18 /min Heart Rate (8867-4) 68 /min Blood Pressure Systolic (8480-6) 126 mm[Hg] Blood Pressure Diastolic (8462-4) 76 mm[Hg] 11/11/2024 01:25 AM Temperature (8310-5) 98 [degF] Oxygen Saturation (71073-5) 97 % Respiratory Rate (9279-1) 18 /min Heart Rate (8867-4) 74 /min Blood Pressure Systolic (8480-6) 128 mm[Hg] Blood Pressure Diastolic (8462-4) 76 mm[Hg] 11/10/2024 11:00 PM Temperature (8310-5) 98.1 [degF] Oxygen Saturation (32267-1) 97 % Respiratory Rate (9279-1) 18 /min Heart Rate (8867-4) 67 /min Blood Pressure Systolic (8480-6) 131 mm[Hg] Blood Pressure Diastolic (8462-4) 77 mm[Hg] 11/11/2024 12:39 PM Temperature (8310-5) 97.9 [degF] Oxygen Saturation (42471-5) 98 % Respiratory Rate (9279-1) 16 /min Blood Pressure Systolic (8480-6) 122 mm[Hg] Blood Pressure Diastolic (8462-4) 68 mm[Hg] 11/11/2024 12:40 PM Heart Rate (8867-4) 72 /min 11/12/2024 02:32 AM Temperature (8310-5) 98.5 [degF] Oxygen Saturation (30846-8) 95 % Respiratory Rate (9279-1) 18 /min Heart Rate (8867-4) 88 /min Blood Pressure Systolic (8480-6) 140 mm[Hg] Blood Pressure Diastolic (8462-4) 78 mm[Hg] 11/11/2024 10:36 PM Temperature (8310-5) 99.4 [degF] Oxygen Saturation (49391-3) 98 % Respiratory Rate (9279-1) 16 /min Heart Rate (8867-4) 75 /min Blood Pressure Systolic (8480-6) 134 mm[Hg] Blood Pressure Diastolic (8462-4) 70 mm[Hg] 11/12/2024 10:06 AM Temperature (8310-5) 98.6 [degF] Oxygen Saturation (09256-7) 95 % Respiratory Rate (9279-1) 16 /min Heart Rate (8867-4) 78 /min Blood Pressure Systolic (8480-6) 134 mm[Hg] Blood Pressure Diastolic (8462-4) 68 mm[Hg] 11/13/2024 09:43 AM Temperature (8310-5) 97.9 [degF] Oxygen Saturation (80027-3) 97 % Respiratory Rate (9279-1) 18 /min Heart Rate (8867-4) 76 /min Blood Pressure Systolic (8480-6) 126 mm[Hg] Blood Pressure Diastolic (8462-4) 70 mm[Hg] 11/13/2024 05:49 AM Temperature (8310-5) 98 [degF] Oxygen Saturation (40389-6) 96 % Respiratory Rate (9279-1) 16 /min Heart Rate (8867-4) 78 /min Blood Pressure Systolic (8480-6) 132 mm[Hg] Blood Pressure Diastolic (8462-4) 74 mm[Hg] 11/13/2024 12:19 AM Temperature (8310-5) 98.4 [degF] Oxygen Saturation (76317-3) 94 % Respiratory Rate (9279-1) 16 /min Heart Rate (8867-4) 75 /min Blood Pressure Systolic (8480-6) 123 mm[Hg] Blood Pressure Diastolic (8462-4) 54 mm[Hg] 11/13/2024 05:10 PM Temperature (8310-5) 98 [degF] Oxygen Saturation (12469-8) 96 % Respiratory Rate (9279-1) 18 /min Heart Rate (8867-4) 69 /min Blood Pressure Systolic (8480-6) 132 mm[Hg] Blood Pressure Diastolic (8462-4) 74 mm[Hg] 11/14/2024 01:23 AM Temperature (8310-5) 98.3 [degF] Oxygen Saturation (73009-2) 95 % Respiratory Rate (9279-1) 16 /min Heart Rate (8867-4) 70 /min Blood Pressure Systolic (8480-6) 136 mm[Hg] Blood Pressure Diastolic (8462-4) 68 mm[Hg] 11/14/2024 11:31 AM Oxygen Saturation (46682-1) 96 % 11/14/2024 11:30 AM Temperature (8310-5) 98.4 [degF] Respiratory Rate (9279-1) 18 /min Heart Rate (8867-4) 72 /min Blood Pressure Systolic (8480-6) 134 mm[Hg] Blood Pressure Diastolic (8462-4) 70 mm[Hg] 11/14/2024 05:05 PM Temperature (8310-5) 98 [degF] Oxygen Saturation (07382-7) 96 % Respiratory Rate (9279-1) 18 /min Heart Rate (8867-4) 70 /min Blood Pressure Systolic (8480-6) 127 mm[Hg] Blood Pressure Diastolic (8462-4) 80 mm[Hg] 11/15/2024 01:06 AM Temperature (8310-5) 98.3 [degF] Oxygen Saturation (85754-5) 95 % Respiratory Rate (9279-1) 16 /min Heart Rate (8867-4) 76 /min Blood Pressure Systolic (8480-6) 128 mm[Hg] Blood Pressure Diastolic (8462-4) 78 mm[Hg] 11/15/2024 06:15 PM Temperature (8310-5) 98.2 [degF] Oxygen Saturation (44556-4) 97 % Respiratory Rate (9279-1) 16 /min Heart Rate (8867-4) 76 /min Blood Pressure Systolic (8480-6) 118 mm[Hg] Blood Pressure Diastolic (8462-4) 68 mm[Hg] 11/15/2024 12:45 PM Temperature (8310-5) 98.2 [degF] Oxygen Saturation (40914-6) 96 % Respiratory Rate (9279-1) 16 /min Heart Rate (8867-4) 74 /min Blood Pressure Systolic (8480-6) 120 mm[Hg] Blood Pressure Diastolic (8462-4) 68 mm[Hg] 11/15/2024 11:38 PM Temperature (8310-5) 98.2 [degF] Respiratory Rate (9279-1) 18 /min Heart Rate (8867-4) 72 /min Blood Pressure Systolic (8480-6) 124 mm[Hg] Blood Pressure Diastolic (8462-4) 74 mm[Hg] 11/16/2024 06:05 PM Respiratory Rate (9279-1) 18 /min 11/16/2024 06:04 PM Temperature (8310-5) 98.2 [degF] Oxygen Saturation (64806-4) 95 % Heart Rate (8867-4) 68 /min Blood Pressure Systolic (8480-6) 128 mm[Hg] Blood Pressure Diastolic (8462-4) 80 mm[Hg] 11/16/2024 12:48 PM Temperature (8310-5) 98.4 [degF] Oxygen Saturation (55427-9) 96 % Respiratory Rate (9279-1) 16 /min Heart Rate (8867-4) 70 /min 11/17/2024 11:26 AM Temperature (8310-5) 98.1 [degF] Oxygen Saturation (17721-4) 98 % Respiratory Rate (9279-1) 18 /min Heart Rate (8867-4) 64 /min Blood Pressure Systolic (8480-6) 126 mm[Hg] Blood Pressure Diastolic (8462-4) 82 mm[Hg] 11/18/2024 06:16 AM Temperature (8310-5) 98.2 [degF] Oxygen Saturation (73953-8) 98 % Respiratory Rate (9279-1) 18 /min Heart Rate (8867-4) 70 /min Blood Pressure Systolic (8480-6) 126 mm[Hg] Blood Pressure Diastolic (8462-4) 76 mm[Hg] 11/17/2024 10:14 PM Temperature (8310-5) 98.3 [degF] Oxygen Saturation (53798-6) 95 % Respiratory Rate (9279-1) 16 /min Heart Rate (8867-4) 68 /min Blood Pressure Systolic (8480-6) 128 mm[Hg] Blood Pressure Diastolic (8462-4) 72 mm[Hg] 11/18/2024 10:22 AM Temperature (8310-5) 98.4 [degF] Oxygen Saturation (67031-5) 98 % Respiratory Rate (9279-1) 16 /min Heart Rate (8867-4) 72 /min 11/18/2024 07:00 PM Temperature (8310-5) 98.3 [degF] Oxygen Saturation (29399-6) 97 % Respiratory Rate (9279-1) 18 /min Heart Rate (8867-4) 76 /min Blood Pressure Systolic (8480-6) 124 mm[Hg] Blood Pressure Diastolic (8462-4) 84 mm[Hg] 11/19/2024 06:21 AM Temperature (8310-5) 98 [degF] Oxygen Saturation (93683-3) 98 % Respiratory Rate (9279-1) 16 /min Heart Rate (8867-4) 74 /min Blood Pressure Systolic (8480-6) 122 mm[Hg] Blood Pressure Diastolic (8462-4) 78 mm[Hg] 11/19/2024 11:11 AM Temperature (8310-5) 98.3 [degF] Oxygen Saturation (35140-9) 96 % Respiratory Rate (9279-1) 18 /min Heart Rate (8867-4) 70 /min Blood Pressure Systolic (8480-6) 130 mm[Hg] Blood Pressure Diastolic (8462-4) 68 mm[Hg] 11/20/2024 06:25 AM Temperature (8310-5) 98 [degF] Oxygen Saturation (06742-3) 97 % Respiratory Rate (9279-1) 16 /min Heart Rate (8867-4) 64 /min Blood Pressure Systolic (8480-6) 132 mm[Hg] Blood Pressure Diastolic (8462-4) 78 mm[Hg] 11/19/2024 05:38 PM Temperature (8310-5) 98.4 [degF] Oxygen Saturation (84566-8) 98 % Respiratory Rate (9279-1) 18 /min Heart Rate (8867-4) 85 /min Blood Pressure Systolic (8480-6) 124 mm[Hg] Blood Pressure Diastolic (8462-4) 76 mm[Hg] 11/20/2024 10:20 AM Temperature (8310-5) 98.2 [degF] Oxygen Saturation (08424-7) 98 % Respiratory Rate (9279-1) 16 /min Heart Rate (8867-4) 70 /min 11/20/2024 08:51 PM Temperature (8310-5) 98 [degF] Oxygen Saturation (77013-7) 97 % Respiratory Rate (9279-1) 16 /min Heart Rate (8867-4) 68 /min Blood Pressure Systolic (8480-6) 128 mm[Hg] Blood Pressure Diastolic (8462-4) 75 mm[Hg] 11/21/2024 01:22 AM Temperature (8310-5) 98.2 [degF] Oxygen Saturation (86968-5) 98 % Respiratory Rate (9279-1) 18 /min Heart Rate (8867-4) 72 /min Blood Pressure Systolic (8480-6) 126 mm[Hg] Blood Pressure Diastolic (8462-4) 72 mm[Hg] 11/21/2024 12:09 PM Temperature (8310-5) 98.3 [degF] Oxygen Saturation (88633-4) 97 % Respiratory Rate (9279-1) 18 /min Heart Rate (8867-4) 68 /min 11/21/2024 06:25 PM Temperature (8310-5) 98.1 [degF] Oxygen Saturation (34177-4) 97 % Respiratory Rate (9279-1) 18 /min Heart Rate (8867-4) 65 /min Blood Pressure Systolic (8480-6) 130 mm[Hg] Blood Pressure Diastolic (8462-4) 67 mm[Hg] 11/22/2024 01:38 AM Temperature (8310-5) 98.4 [degF] Oxygen Saturation (20036-8) 98 % Respiratory Rate (9279-1) 18 /min Heart Rate (8867-4) 69 /min Blood Pressure Systolic (8480-6) 125 mm[Hg] Blood Pressure Diastolic (8462-4) 60 mm[Hg] 11/22/2024 05:06 PM Temperature (8310-5) 98.4 [degF] Oxygen Saturation (86489-6) 98 % Respiratory Rate (9279-1) 16 /min Heart Rate (8867-4) 68 /min Blood Pressure Systolic (8480-6) 128 mm[Hg] Blood Pressure Diastolic (8462-4) 68 mm[Hg] 11/22/2024 09:36 AM Temperature (8310-5) 98.4 [degF] Oxygen Saturation (42030-4) 97 % Respiratory Rate (9279-1) 18 /min Heart Rate (8867-4) 70 /min Blood Pressure Systolic (8480-6) 118 mm[Hg] Blood Pressure Diastolic (8462-4) 64 mm[Hg] 11/26/2024 10:47 AM Body Weight (14697-9) 196 [lb_av] Body Mass Index (76479-7) 28.12 kg/m2 11/27/2024 10:25 PM Temperature (8310-5) 98.2 [degF] Oxygen Saturation (79037-7) 94 % Respiratory Rate (9279-1) 18 /min Heart Rate (8867-4) 68 /min Blood Pressure Systolic (8480-6) 145 mm[Hg] Blood Pressure Diastolic (8462-4) 78 mm[Hg] 11/28/2024 12:07 PM Temperature (8310-5) 98.2 [degF] Oxygen Saturation (47525-9) 99 % Respiratory Rate (9279-1) 18 /min Heart Rate (8867-4) 66 /min Blood Pressure Systolic (8480-6) 94 mm[Hg] Blood Pressure Diastolic (8462-4) 54 mm[Hg] 11/28/2024 12:32 PM Blood Pressure Systolic (8480-6) 1 15 mm[Hg] Blood Pressure Diastolic (8462-4) 62 mm[Hg] 12/01/2024 03:26 PM Body Weight (98229-5) 199 [lb_av] Body Mass Index (19054-1) 28.55 kg/m2 12/27/2024 01:33 AM Temperature (8310-5) 98.2 [degF] Oxygen Saturation (63516-6) 95 % Respiratory Rate (9279-1) 18 /min Heart Rate (8867-4) 70 /min Blood Pressure Systolic (8480-6) 132 mm[Hg] Blood Pressure Diastolic (8462-4) 62 mm[Hg] 12/28/2024 01:24 PM Temperature (8310-5) 98 [degF] Oxygen Saturation (75637-4) 96 % Respiratory Rate (9279-1) 18 /min Heart Rate (8867-4) 84 /min Blood Pressure Systolic (8480-6) 128 mm[Hg] Blood Pressure Diastolic (8462-4) 73 mm[Hg] 12/28/2024 09:11 PM Temperature (8310-5) 98 [degF] Oxygen Saturation (15274-6) 97 % Respiratory Rate (9279-1) 16 /min Heart Rate (8867-4) 82 /min Blood Pressure Systolic (8480-6) 118 mm[Hg] Blood Pressure Diastolic (8462-4) 68 mm[Hg] 12/29/2024 03:50 AM Temperature (8310-5) 98 [degF] Oxygen Saturation (24930-2) 96 % Respiratory Rate (9279-1) 16 /min Heart Rate (8867-4) 83 /min Blood Pressure Systolic (8480-6) 118 mm[Hg] Blood Pressure Diastolic (8462-4) 75 mm[Hg] 12/29/2024 06:02 PM Temperature (8310-5) 98.3 [degF] Oxygen Saturation (23992-9) 95 % Respiratory Rate (9279-1) 16 /min Heart Rate (8867-4) 68 /min Blood Pressure Systolic (8480-6) 108 mm[Hg] Blood Pressure Diastolic (8462-4) 68 mm[Hg] 12/29/2024 02:31 PM Body Weight (84937-2) 192.8 [lb_av ] Body Mass Index (14821-7) 27.66 kg/m2 12/29/2024 09:48 AM Temperature (8310-5) 98.1 [degF] Oxygen Saturation (36838-5) 96 % Respiratory Rate (9279-1) 18 /min Heart Rate (8867-4) 76 /min Blood Pressure Systolic (8480-6) 126 mm[Hg] Blood Pressure Diastolic (8462-4) 72 mm[Hg] 12/30/2024 12:55 AM Temperature (8310-5) 97.9 [degF] Oxygen Saturation (59034-7) 98 % Respiratory Rate (9279-1) 16 /min Heart Rate (8867-4) 60 /min Blood Pressure Systolic (8480-6) 141 mm[Hg] Blood Pressure Diastolic (8462-4) 77 mm[Hg] 12/30/2024 03:16 PM Temperature (8310-5) 97.8 [degF] Oxygen Saturation (89034-3) 95 % Respiratory Rate (9279-1) 16 /min Heart Rate (8867-4) 62 /min Blood Pressure Systolic (8480-6) 148 mm[Hg] Blood Pressure Diastolic (8462-4) 62 mm[Hg] 12/30/2024 11:51 AM Temperature (8310-5) 98 [degF] Oxygen Saturation (34045-5) 98 % Respiratory Rate (9279-1) 18 /min Heart Rate (8867-4) 68 /min Blood Pressure Systolic (8480-6) 128 mm[Hg] Blood Pressure Diastolic (8462-4) 74 mm[Hg] 12/31/2024 12:23 AM Temperature (8310-5) 97.9 [degF] Oxygen Saturation (28637-2) 96 % Respiratory Rate (9279-1) 18 /min Heart Rate (8867-4) 62 /min Blood Pressure Systolic (8480-6) 132 mm[Hg] Blood Pressure Diastolic (8462-4) 72 mm[Hg] 12/31/2024 07:58 AM Temperature (8310-5) 97.8 [degF] Oxygen Saturation (76866-5) 94 % Respiratory Rate (9279-1) 16 /min Heart Rate (8867-4) 60 /min Blood Pressure Systolic (8480-6) 123 mm[Hg] Blood Pressure Diastolic (8462-4) 62 mm[Hg] 12/31/2024 03:36 PM Temperature (8310-5) 98.2 [degF] Oxygen Saturation (09891-2) 95 % Respiratory Rate (9279-1) 18 /min Heart Rate (8867-4) 64 /min Blood Pressure Systolic (8480-6) 138 mm[Hg] Blood Pressure Diastolic (8462-4) 76 mm[Hg] 01/22/2025 03:11 PM Body Weight (98330-1) 194.8 [lb_av ] Body Mass Index (27328-0) 27.95 kg/m2 01/29/2025 01:35 PM Temperature (8310-5) 98.2 [degF] Oxygen Saturation (51422-4) 95 % Respiratory Rate (9279-1) 16 /min Heart Rate (8867-4) 68 /min Blood Pressure Systolic (8480-6) 106 mm[Hg] Blood Pressure Diastolic (8462-4) 60 mm[Hg] 01/30/2025 02:33 PM Body Weight (94750-2) 193 [lb_av] Body Mass Index (58627-4) 27.69 kg/m2 02/24/2025 01:50 PM Body Weight (51976-9) 192.6 [lb_av ] Body Mass Index (83202-1) 27.63 kg/m2 02/27/2025 02:38 AM Temperature (8310-5) 98 [degF] Oxygen Saturation (80650-8) 95 % Respiratory Rate (9279-1) 14 /min Heart Rate (8867-4) 56 /min Blood Pressure Systolic (8480-6) 132 mm[Hg] Blood Pressure Diastolic (8462-4) 71 mm[Hg] 06/30/2025 02:19 PM Body Weight (05602-8) 200.4 [lb_av ] Body Mass Index (78109-7) 28.75 kg/m2 06/01/2025 06:19 PM Body Weight (28970-2) 201.2 [lb_av ] Body Mass Index (96964-6) 28.87 kg/m2 05/02/2025 08:05 AM Oxygen Saturation (07727-4) 96 % Respiratory Rate (9279-1) 18 /min Heart Rate (8867-4) 56 /min Blood Pressure Systolic (8480-6) 132 mm[Hg] Blood Pressure Diastolic (8462-4) 72 mm[Hg] 06/19/2025 12:48 PM Temperature (8310-5) 98 [degF] 05/06/2025 10:38 AM Temperature (8310-5) 98.2 [degF] Oxygen Saturation (38402-5) 98 % Respiratory Rate (9279-1) 16 /min Heart Rate (8867-4) 62 /min Blood Pressure Systolic (8480-6) 112 mm[Hg] Blood Pressure Diastolic (8462-4) 63 mm[Hg] 05/06/2025 11:21 AM Body Weight (61779-2) 197.2 [lb_av ] Body Mass Index (15081-5) 28.29 kg/m2 06/27/2025 02:40 PM Temperature (8310-5) 98.3 [degF] Oxygen Saturation (14300-7) 94 % Respiratory Rate (9279-1) 16 /min Heart Rate (8867-4) 60 /min Blood Pressure Systolic (8480-6) 148 mm[Hg] Blood Pressure Diastolic (8462-4) 82 mm[Hg] 05/20/2025 12:07 PM Body Weight (00021-0) 198.2 [lb_av ] Body Mass Index (44068-1) 28.44 kg/m2 05/30/2025 06:16 PM Temperature (8310-5) 97.8 [degF] Oxygen Saturation (26260-4) 94 % Heart Rate (8867-4) 59 /min Blood Pressure Systolic (8480-6) 144 mm[Hg] Blood Pressure Diastolic (8462-4) 72 mm[Hg] 05/23/2025 03:03 PM Body Weight (72254-5) 196.5 [lb_av ] Body Mass Index (92779-6) 28.19 kg/m2 05/01/2025 11:52 PM Respiratory Rate (9279-1) 16 /min 05/04/2025 01:37 AM Temperature (8310-5) 98.2 [degF] Oxygen Saturation (35603-0) 95 % Respiratory Rate (9279-1) 18 /min Heart Rate (8867-4) 72 /min Blood Pressure Systolic (8480-6) 134 mm[Hg] Blood Pressure Diastolic (8462-4) 84 mm[Hg] 05/01/2025 09:19 AM Respiratory Rate (9279-1) 16 /min 05/28/2025 07:45 PM Temperature (8310-5) 98.4 [degF] Oxygen Saturation (37138-1) 95 % Heart Rate (8867-4) 62 /min Blood Pressure Systolic (8480-6) 132 mm[Hg] Blood Pressure Diastolic (8462-4) 66 mm[Hg] 05/02/2025 01:07 PM Body Weight (83623-2) 192.4 [lb_av ] Body Mass Index (53492-8) 27.6 kg/m2 05/04/2025 09:04 AM Temperature (8310-5) 98.1 [degF] Oxygen Saturation (36666-6) 97 % Respiratory Rate (9279-1) 18 /min Heart Rate (8867-4) 62 /min Blood Pressure Systolic (8480-6) 110 mm[Hg] Blood Pressure Diastolic (8462-4) 60 mm[Hg] 05/03/2025 08:32 AM Temperature (8310-5) 98 [degF] Oxygen Saturation (05339-0) 97 % Respiratory Rate (9279-1) 18 /min Heart Rate (8867-4) 55 /min Blood Pressure Systolic (8480-6) 133 mm[Hg] Blood Pressure Diastolic (8462-4) 58 mm[Hg] 05/13/2025 02:37 PM Body Weight (14086-1) 194.5 [lb_av ] Body Mass Index (83563-3) 27.9 kg/m2 05/05/2025 09:40 AM Temperature (8310-5) 98.2 [degF] Oxygen Saturation (27962-3) 97 % Respiratory Rate (9279-1) 18 /min Heart Rate (8867-4) 70 /min Blood Pressure Systolic (8480-6) 116 mm[Hg] Blood Pressure Diastolic (8462-4) 62 mm[Hg] 06/18/2025 10:25 AM Temperature (8310-5) 98 [degF] 05/01/2025 11:56 PM Oxygen Saturation (93027-6) 95 % Respiratory Rate (9279-1) 16 /min Heart Rate (8867-4) 62 /min Blood Pressure Systolic (8480-6) 119 mm[Hg] Blood Pressure Diastolic (8462-4) 67 mm[Hg] Social History No smoking Hx information available Encounters Type CPT Code Date Location Provider Indication s encounter report 06/01/2024 03:30 PM Mariano Garza DO 01
[2025-07-10 18:54] VITALS: BP 150/73; PULSE 76; TEMP 36.9; O2SAT 94; BMI 27.0
--- OUTSIDE RECORDS SUMMARY | 2025-07-10 18:54 | XMS_ITS | CCD ---
Author Organization [facility] Care Team Providers Care Corporate Pilot Name Role Phone MUKESH, DR BSUH Primary Care Unavailable BALL, DR BUSH Attending Unavailable BALL, DR BUSH Admitting Unavailable BALL, DR BUSH Primary Care Unavailable BALL, DR BUSH Attending Unavailable BALL, DR BUSH Admitting Unavailable Eleazar Mayorga Unavailable JASON RODRIGUEZ Attending Unavailable SARAH BARRETT Attending Unavailable ELEAZAR MAYORGA Primary Care Unavailable INPATIENT, TELENEUROLOGY Consulting Unavail able ABEBE ROLLINS Admitting Unavailab KLAUS Boyd Referring Unavailable ELEAZAR MAYORGA Primary Care Unavailable SARAH BARRETT Attending Unavailable SARAH BARRETT Referring Unavailable MUKESH, ELEAZAR Graham Primary Care Unavailable HAMMAD PATEL Attending Unavailable HAMMAD PATEL Referring Unavailable MUKESH, ELEAZAR Graham Primary Care Unavailable KONG GALLEGOS Attending Unavailable KONG GALLEGOS Referring Unavailable MUKESH, ELEAZAR Graham Primary Care Unavailable KONG GALLEGOS Attending Unavailable KONG GALLEGOS Referring Unavailable MUKESH, ELEAZAR Graham Primary Care Unavailable KLAUS YEBOAH Referring Unavailable MUKESH, ELEAZAR Graham Primary Care Unavailable MUKESH, ELEAZAR Graham Primary Care Unavailable YUDELKA MCMULLEN Attending Unavailable RAJESH RICE Consulting Unavailable EMILIA HIDALGO Admitting Unavailable YUDELKA LICEA Consulting Unavailable YUDELKA MCMULLEN Attending Unavailable YUDELKA MCMULLEN Referring Unavailable MUKESH, ELEAZAR Graham Primary Care Unavailable YUDELKA MCMULLEN Attending Unavailable YUDELKA MCMULLEN Referring Unavailable BALL, ELEAZAR Graham Primary Care Unavailable MUKESH, ELEAZAR Graham Primary Care Unavailable GOLIVERBROOK Attending Unavailable GOLIVER, BROOK Mcdonald Attending Unavailable GOLIVERBROOK Referring Unavailable BALL, ELEAZAR E Primary Care Unavailable BALL, ELEAZAR E Primary Care Unavailable MOUNIKA MENDOZA Attending Unavailable NEO EASTON Admitting Unavailable BALL, ELEAZAR Graham Referring Unavailable MUKESH, ELEAZAR E Primary Care Unavailable KLAUS YEBOAH Attending Unavailable MUKESH, ELEAZAR E Referring Unavailable BALL, ELEAZAR E Primary Care Unavailable VOVOKLAUS Trujillo Referring Unavailable BALL, ELEAZAR E Primary Care [...] Primary Care Unavailable Unavailable Primary Care Provider UnavailEleazar Grayson MD Primary Care Provider ELEAZAR MAYORGA Primary Care Physician [phone] Eleazar Mayorga DO Primary Care Provider [phone] Arturo TOWNSEND, Tori [place] Emergency Provider Ridge TOWNSEND, Juany Admit Provider Mauro Mcdonald MD Other Provider Maria Luisa HEALTHCARE CONSULTANT-C, Alma Other Provider Unavailable Nadia Youngblood MD Other Provider Sharmaine Jimenez MD Other Provider Dionte Rizvi MD Other Provider Addy Portillo MD Other Provider Ester Carlos MD Other Provider Luis Cherry MD Other Provider Dionte Pereira MD Other Provider [phone] Kong Davidson MD Other Provider [phone] Sejal TOWNSEND, Jarocho Other Provider Abel HEALTHCARE CONSULTANT-C, Yamila Lopez Other Provider [phone] Elias [facility]-, Donna Other Provider Giulia Gerard John Other Provider Ricardo Ortega MD Other Provider Lisset Wilson Other Provider Unavailable Markie PhD, Clayton Other Provider Crisetl DO, Skylar Other Provider Howard TOWNSEND, Eduar Other Provider Riri DO, Kong Barry Other Provider Maria Alejandra DO, Collin Barry Other Provider Shanice Adames APRN Other Provider Sanchez HEALTHCARE CONSULTANT-C, Crystal Trujillo Other Provider Vincenzo CRUZ-MANAGER EXCHANGE-C, Alexandra Graham Other Provider [phone] Bryson Chavez MD Attending Provider Brayan Farmer MD Attending Provider GRICELDA PEREA Admitting Unavailable GRICELDA PEREA Attending Unavailable KONG DAVIDSON Consulting Unavailable LANG, SARAH Attending Unavailable SUELLEN COOPER Attending Unavailable LANG, SARAH Referring Unavailable Eleazar Mayorga DO Primary Care Provider Eleazar Mayorga DO Primary Care Provider Eleazar Mayorga DO E Primary Care Provider Unavailable Primary Care Provider UnavailTIMOTHY Terrell Attending Unavailable DEBBIE ZUÑIGA Attending Unavailable DEBBIE ZUÑIGA Attending Unavailable Brayan Farmer Admitting Unavailable Brayan Farmer Attending Unavailable Mauro Mcdonald Consulting Unavailable Semaskiene, Juany Admitting Unavailable Eleazar Mayorga Primary Care Unavailable Bryson Chavez Attending Unavailable Alma Glass Consulting Unavailable Ford, Nadia Consulting Unavailable Bakmarios, Aziz Consulting Unavailable Dionte Rizvi Consulting Unavailable Addy Portillo Consulting Unavailable Ester Carlos Consulting Unavailable Luis Cherry Consulting Unavailable Dionte Pereira Consulting Unavailable Kong Davidson Consulting Unavailable Jarocho Post Consulting Unavail able Yamila Roman Consulting Unavailable Donna Griffin Consulting Unavailable Giulia MCCRAY, Gerard Lopez Consulting Unavaila Ricardo Santana Consulting Unavailable SciLisset bradley Consulting Unavailable Clayton Aden Consulting Unavailable Skylar Fam Consulting Unavailable [place], Eduar Consulting Unavailable Kong Menezes Consulting Unavailab [...] Consulting Unavailable MD Eduar Lawrence Consulting Unavailable [place] Eduar Consulting Unavailable [place] Eduar Consulting Unavailable [place] Eduar Consulting Unavailable [place] Eduar Consulting Unavailable [place] Eduar Consulting Unavailable [place], Eduar Consulting Unavailable [place], Eduar Consulting Unavailable [place] Eduar Consulting Unavailable Dionte COKER Admitting Unavailable Dionte COKER Attending Unavailable [place] Eduar Consulting Unavailable [place] Eduar Consulting Unavailable [place], Eduar Consulting Unavailable [place] Eduar Consulting Unavailable [place] Eduar Consulting Unavailable [place] Eduar Consulting Unavailable [place], Eduar Consulting Unavailable Eduar Lawrence Consulting Unavailable Eduar Lawrence Consulting Unavailable Wandy WOODRUFF Attending Unavailable Hospitalist Post Disch, Results Reviewer Consult ing Unavailable MD Eduar Lawrence Consulting Unavailable MD JAROCHO POST Attending Unav ailable Eleazar Mayorga DO Primary Care Provider Eleazar Mayorga DO Attending Provider Brenda Mehta CMA Attending Provider Unavaila ble Provider, Outside Attending Provider Unavailable Cyndy Blair DO Attending Provider [phone] Shanice Adames APRN Attending Provider Allergies Allergy Classification Reported Allergen(s) Allergy Type Date of Onset Reaction(s) Facility (6 sources) No Known Medication Allergies; Translations: [No Known Medication Allergies] Propensity to adverse reactions (disorder) [facility] Repository Medications Current Medications Medication Drug Class(es) Dates Sig (Normalized) Sig (Original) acetaminophen 325 mg / HYDROcodone bitartrate 5 mg oral tablet (1 source) Opioid Agonist Start: 04-10-2024 take 1 tablet by mouth every four hours as needed for pain 1 tablet, oral, Every 4 hours PRN, moderate pain - pain scale 4-6, Starting on 04/10/24 at 0033, Look-alike/sound -alike medication - verify [...] 10/25/24 Status: Ordered Repeat number: 1 Start: 10-30-2023 End: 04-09-2024 take 1 tablet by mouth in the morning aspirin 81 mg Take 1 tablet (81 mg total) by mouth in the morning. 30 tablet 1 06/12/2024 Active atorvastatin 40 mg oral tablet (20 sources) HMG-CoA Reductase Inhibitor Start: 10-29-2023 take 1 tablet by mouth at bedtime Atorvastatin 40 mg tablet Active 40 MG PO Bedtime January 22, 2024 12:00am Complies with drug therapy bisacodyl 10 mg rectal suppository (4 sources) Stimulant Laxative Start: 04-25-2025 Bisacodyl (Dulcolax (Bisacodyl)) 10 mg suppository Active 10 MG CO Daily as needed May 02, 2025 12:00am Complies with drug therapy Start: 10-02-2024 take 1 dose by mouth [...] Date: 09/30/24 Status: Ordered Repeat number: 1 0.4 ml enoxaparin sodium 100 mg/ml prefilled syringe (1 source) Low Molecular Weight Heparin Start: 04-10-2024 40 mg, subcutaneous, Daily, First dose on Fri04/10/24 at 0600, When Creatinine Clearance 30 mL/min or greater Look-alike/sound-a like medication - verify indication for use. escitalopram 10 mg oral tablet (1 source) Serotonin Reuptake Inhibitor Start: 06-28-2025 take 1 tablet by mouth once Escitalopram Oxalate 10 mg tablet Active 10 MG PO Once June 28, 2025 12:00am Complies with drug therapy finasteride 5 mg oral tablet (7 sources) 5-alpha Reductase Inhibitor Start: 10-12-2024 take 1 tablet by mouth once daily Finasteride 5 mg Tablet Active 5 MG PO Daily 60 60 October 12, 2024 1:00am Complies with drug therapy folic acid 1 mg oral tablet (4 sources) Start: 04-15-2025 take 1 tablet by mouth once daily Folic Acid 1 mg tablet Active 1 MG PO Daily May 02, 2025 12:00am Complies with drug therapy FreeStyle Kathie 2 [place] - (4 sources) Start: 11-26-2023 FreeStyle Kathie 2 [place] - Use to test home BS transcutaneous 4x daily for 365 days Oct, Active FreeStyle Kathie 2 Sensor - (4 sources) Start: 11-26-2023 FreeStyle Kathie 2 Sensor - Use to check home BS transcutaneous 4x daily for 30 days Oct, Active gabapentin 100 mg oral capsule (14 sources) Anti-epileptic Agent Start: 10-25-2024 gabapentin 100 mg Cap 90 EA, 0 Refill(s), Refills(s) 0 Start Date: 10/25/24 Status: Ordered Repeat number: 1 Start: 04-21-2024 take 1 capsule by mo [facility] three times daily Gabapentin 100 mg capsule Active 100 MG PO Three times daily June 17, 2024 12:00am Complies with drug therapy gadoterate meglumine (Dotarem) 0.5 mmol/mL contrast injection 17 mL (1 source) Start: 10-04-2024 inject 17 mL intravenously once 17 mL, intravenous, Once in imaging, Starting on 10/04/24 at 1413, For 1 dose, Administer undiluted [...] insulin for 30 days Nov, Active Insulin Glargine (Lantus U-100 Insulin) 100 [...] 10/25/24 Status: Ordered Repeat number: 1 Start: 10-06-2024 inject 1 dose by sub cutaneous injection at bedtime Insulin Lispro (Admelog Solostar U-100 Insulin) 100 unit/mL insulin pen Active 1 sliding scale dose SUBCUT Before meals and at bedtime October 06, 2024 1:00am FSBS 151-200, give 2 units 201-250, give 4 units 251-300, give 6 units 301-350, give 8 units 351-400, give 10 units > 400 notify provider Complies with drug therapy Start: 10-02-2024 0-10 Units, gaona bcutaneous, 4 [...] 10 units. 15 mL 12 10/29/2023 Active levETIRAcetam 500 mg oral tablet (3 sources) Start: 04-28-2025 take 1 tablet by mouth twice daily Levetiracetam (Keppra) 500 mg tablet Active 500 MG PO Twice daily May 02, 2025 12:00am Complies with drug therapy linaclotide 0.145 mg oral capsule (2 sources) [...] Active loperamide hydrochloride 2 mg oral capsule (4 sources) Opioid Agonist Start: 06-28-2025 take 1 capsule by mouth three times daily as needed Loperamide 2 mg capsule Active 2 MG PO Three times daily as needed June 28, 2025 12:00am Complies with drug therapy Start: 01-07-2025 loperamide 2 m g Cap 2 mg = 1 cap(s), Oral Start Date: 01/07/25 Status: Ordered Repeat number: 1 Magnesium Hydroxide (11 sources) Start: 01-07-2025 magnesium hydr oxide 400 mg Start Date: 01/07/25 Status: Ordered Repeat number: 1 Start: 10-04-2024 take 5 mL by mouth e very twenty-four hours as needed Start: 06-17-2024 End: 06-28-2025 take 1 mL by mouth once daily at bedtime as needed for constipation Magnesium Hydroxide 400 mg/5 mL suspension Discontinued 30 ML PO Daily at bedtime as needed for constipation June 17, 2024 12:00am June 28, 2025 2:04pm Start: 06-17-2024 take 1 mL by mouth o nce daily at bedtime as needed for constipation Magnesium Hydroxide 400 mg/5 mL suspension Active 30 ML PO Daily at bedtime as needed for constipation June 16, 2024 11:00pm magnesium oxide 400 mg oral tablet (11 sources) Start: 06-28-2025 take 1 tablet by mouth once daily Magnesium Oxide 400 mg magnesium tablet Active 400 MG PO Daily June 28, 2025 12:00am Complies with drug therapy Start: 10-06-2024 End: 05-02-2025 take 1 capsule by mouth once daily Magnesium Oxide 400 mg magnesium capsule Discontinued 400 MG PO Daily October 06, 2024 1:00am May 02, 2025 11:33am Start: 10-04-2024 take 400 mg by mouth [...] orders as needed. melatonin 3 mg oral capsule (14 sources) Start: 06-28-2025 take 1 capsule by mouth once daily at bedtime as needed for sleep Melatonin 3 mg capsule Active 3 MG PO Daily at bedtime as needed for sleep June 28, 2025 2:04pm Complies with drug therapy Start: 06-17-2024 take 2 capsules by m outh once daily at bedtime as needed for sleep Melatonin 3 mg capsule Active 6 MG PO Daily at bedtime as needed for sleep June 16, 2024 11:00pm Start: 06-17-2024 End: 06-28-2025 take 2 capsules by mouth once daily at bedtime as needed for sleep Melatonin 3 mg capsule Discontinued 6 MG PO Daily at bedtime as needed for sleep June 17, 2024 12:00am June 28, 2025 2:10pm Start: 06-05-2024 take 2 tablets by mo [facility] once daily melatonin (CIRCADIN) tablet Indications: insomnia Take 2 tablets (6 mg total) by mouth nightly Indications: difficulty sleeping. Active menthol 0.04 mg/mg topical g el (3 sources) Start: 06-28-2025 Menthol (Biofr eeze (Menthol)) 4 % gel Active 1 APPLIC TOPICAL Daily June 28, 2025 12:00am Complies with drug therapy Start: 04-25-2025 Biofreeze 5% t opical pad [...] succinate 50 mg extended release oral tablet (12 sources) beta-Adrenergic Michael Start: 09-29-2024 End: 04-28-2025 take 1 tablet by mouth once daily Metoprolol Succinate 50 mg tablet extended release 24 hr Active 50 MG PO Daily October 06, 2024 1:00am Complies with drug therapy mirtazapine 30 mg oral tablet (2 sources) Start: 06-28-2025 take 1 tablet by mouth once daily Mirtazapine 15 mg tablet Active 15 MG PO Daily June 28, 2025 12:00am Complies with drug therapy Start: 06-28-2025 take 1 tablet by piyush once daily at bedtime Mirtazapine 30 mg tablet Active 30 MG PO Daily at bedtime June 28, 2025 12:00am Complies with drug therapy 24 hr nicotine 0.292 mg/hr transdermal system [...] 21 mg /24 hr patch 1 patch nitroglycerin 0.4 mg sublingual tablet (1 source) Nitrate Vasodilator Start: 06-28-2025 Nitroglycerin 0.4 mg tablet, sublingual Active 0.4 MG SUBLINGUAL Q5M as needed June 28, 2025 12:00am Complies with drug therapy omeprazole 20 mg delayed release oral capsule (1 source) Proton Pump Inhibitor Start: 06-28-2025 take 1 capsule by mouth once daily Omeprazole 20 mg capsule,delayed release(DR/EC) Active 20 MG PO Daily June 28, 2025 12:00am Complies with drug therapy 2 ml ondansetron 2 mg/ml injection (3 sources) Serotonin-3 Receptor Antagonist Start: 04-09-2024 take 4 mg intravenously every four hours as needed for nausea and vomiting 4 mg, intravenous, Every 4 hours PRN, nausea, vomiting, Starting on Fri04/09/24 at 1348, Administer over 2-5 minutes. Start: 04-09-2024 End: 04-09-2024 4 mg, intravenous, Once, On Fri04/09/24 at 1325, For 1 dose, Administer over 2-5 minutes. pantoprazole 40 mg delayed release oral tablet (12 sources) Proton Pump Inhibitor Start: 06-17-2024 take 1 tablet by mouth once daily Pantoprazole 40 mg tablet,delayed release (DR/EC) Active 40 MG PO Daily June 17, 2024 12:00am Complies with drug therapy Start: 04-21-2024 End: 08-09-2024 take 1 tablet [...] with GI.. 160 tablet 04/21/2024 08/09/2024 Active polyethylene glycol 3350 54709 mg powder for oral solution (11 sources) Osmotic Laxative Start: 10-02-2024 Polyethylene Glycol 3350 (Clearlax) 17 gram/dose powder Active 17 GM PO Daily October 06, 2024 1:00am Complies with drug therapy Start: 10-02-2024 Start: 10-02-2024 polysaccharide iron complex 150 mg oral capsule (5 sources) Start: 04-25-2025 Polysaccharide Iron Complex (Ferrex 150) 150 mg iron capsule Active 150 MG PO Daily June 28, 2025 12:00am Complies with drug therapy Start: 04-15-2025 take 1 capsule by [facility] once daily Ferrex-150 oral capsule 150 mg = 1 cap(s), Oral, Daily Start Date: 04/15/25 Status: Ordered Repeat number: 1 Potassium Chloride (1 source) Start: 04-09-2024 potassium chlo ride (K-TAB,KLOR-CON) CR tablet 30-50 mEq psyllium 3400 mg powder for oral suspension (3 sources) Start: 04-25-2025 Psyllium Husk (Metamucil) 3.4 gram/5.4 gram powder Active 1 TBSP PO Daily May 02, 2025 12:00am mix into at least 8 oz of water or juice before administering Complies with drug therapy sennosides, group home 8.6 mg oral tablet (7 sources) Start: 10-02-2024 Start: 10-02-2024 Start: 10-02-2024 [facility] 17.2 mg (2 tablet), oral, Daily, First dose on 10/02/24 at 0900 take 2 tablets by mo [facility] once daily sennosides (Senokot) 8.6 mg tablet Take 2 tablets (17.2 mg) by mouth once daily. Active sodium phosphate 20 mmol in sodium chloride 0.9 % 250 mL IVPB (1 source) Start: 04-09-2024 sodium phosphate 20 mmol in sodium chloride 0.9 % 250 mL IVPB sulfamethoxazole 800 mg / trimethoprim 160 mg oral tablet (2 sources) Dihydrofolate Reductase Inhibitor Antibacterial, Sulfonamide Antimicrobial Start: 04-28-2025 End: 05-03-2025 take 1 tablet by mouth twice daily Sulfamethoxazol e-Trimethoprim (Bactrim Ds) 800-160 mg tablet Active 1 TAB PO Twice daily May 02, 2025 12:00am Complies with drug therapy tamsulosin hydrochloride 0.4 mg oral capsule (14 sources) alpha-Adrenergic Michael Start: 10-02-2024 End: 04-28-2025 take 1 capsule by mouth at bedtime Tamsulosin 0.4 mg capsule Active 0.4 MG PO Bedtime October 06, 2024 1:00am Complies with drug therapy Start: 06-17-2024 End: 07-27-2024 take 1 capsule by mouth once daily at bedtime Tamsulosin 0.4 mg capsule Discontinued 0.4 MG PO Daily at bedtime June 17, 2024 12:00am July 27, 2024 4:49pm ticagrelor 90 mg oral tablet (14 sources) Start: 10-05-2024 Brilinta (zohra grelor) 90 mg oral tablet 28 tab(s), 0 Refill(s), Refills(s) 0 Start Date: 10/25/24 Status: Ordered Repeat number: 1 Start: 07-27-2024 End: 06-28-2025 Ticagrelor (Brilinta) 90 mg tablet Discontinued 90 MG PO Twice daily July 27, 2024 12:00am June 28, 2025 2:06pm On Hold: Resume on 10/26/24. Please hold [...] Active traZODone hydrochloride 150 mg oral tablet (13 sources) Serotonin Reuptake Inhibitor Start: 04-15-2025 traZODONE [...] dose on 10/04/24 at 2100 Start: 06-17-2024 End: 06-28-2025 Trazodone 50 mg tablet Disco ntinued 25 MG PO Daily at bedtime June 17, 2024 12:00am June 28, 2025 2:06pm take 0.5 tablet by m outh once daily at bedtime traZODone (Desyrel) 50 mg tablet Take 0.5 tablets (25 mg) by mouth once daily at bedtime. Active Completed/Discontinued Medications Medication Drug Class(es) Dates Sig (Normalized) Sig (Original) acetaminophen 325 mg oral tablet (11 sources) Start: 10-02-2024 take 5 tablets by [...] Start: 06-17-2024 take 2 tablets by mo uth three times daily as needed for pain Acetaminophen 500 mg tablet Active 1000 MG PO Three times daily as needed for pain June 17, 2024 12:00am Complies with drug therapy Start: 04-09-2024 take 1 tablet by piyush th every four hours as needed for pain [...] (eight) hours as needed for pain. Active betamethasone 0.5 mg/ml / clotrimazole 10 mg/ml topical cream (4 sources) Azole Antifungal, Corticosteroid Start: 05-02-2025 apply 15 g topically twice daily betamethasone-clotrimazole Top 0.05%-1% Crm 15 gram miguel, Topical, BID, Refill(s) 0 Start Date: 05/09/25 Status: Ordered Repeat number: 1 Start: 04-25-2025 apply 1 [IU] topical ly twice daily betamethasone-clotrimazole Top 0.05%-1% Crm 15 gram 1 miguel, Topical, BID, 15 gram, Refill(s) 0 Start Date: 04/25/25 Status: Ordered Quantity: 15.0 Unit: g Repeat number: 1 Blood-Glucose Meter,Continuo us (Freestyle Kathie 3 [place]) misc (3 sources) Start: 03-01-2024 End: 10-06-2024 Blood-Glucose Meter,Continuo us (Freestyle Kathie 3 [place]) misc Discontinued 0 .Route 1 February 29, 2024 11:00pm October 06, 2024 5:35pm to test daily Start: 03-01-2024 Blood-Glucose Meter,Continuous (Freestyle Kathie 3 [place]) misc Active 0 .Route 1 March 01, 2024 12:00am to test daily Blood-Glucose Sensor (Freest yle Kathie 3 Sensor) device (4 sources) Start: 03-01-2024 End: 10-06-2024 Blood-Glucose Sensor (Freest yle Kathie 3 Sensor) device Discontinued 0 .Route 2 March 01, 2024 12:00am October 06, 2024 6:35pm to test blood sugar daily Start: 03-01-2024 End: 10-06-2024 Blood-Glucose Sensor (Freest yle Kathie 3 Sensor) device Discontinued 0 .Route 2 February 29, 2024 11:00pm October 06, 2024 5:35pm to test blood sugar daily Start: 03-01-2024 Blood-Glucose Sensor (Freestyle Kathie 3 Sensor) device Active 0 .Route 2 March 01, 2024 12:00am to test blood sugar daily Blood-Glucose,Molecular Modeler,Cont (Freestyle Kathie 3 [place]) misc (1 source) Start: 03-01-2024 End: 10-06-2024 Blood-Glucose,Molecular Modeler,Cont (Freestyle Kathie 3 [place]) misc Discontinued 0 .Route 1 March 01, 2024 12:00am October 06, 2024 6:35pm to test daily carvedilol 3.125 mg oral tablet (4 sources) alpha-Adre nergic Michael, beta-Adren ergic Michael Start: 07-24-2021 take 1 tablet by mouth every twelve hours Carvedilol 3.125 MG 1 tablet with food Orally Twice a day for 30 days Jun, Not-Taking/PRN clopidogrel 75 mg oral table t (10 sources) [id number] Platelet Inhibitor Start: 04-09-2024 End: 04-09-2024 take 300 mg by mouth once 300 mg, oral, Once, On Fri04/09/24 at 0855, For 1 dose, Look-alike/sound-alike medication - verify indication for use. Start: 01-22-2024 End: 06-17-2024 take 1 tablet by mouth once daily Clopidogrel (Plavix) 75 mg tablet Discontinued 75 MG PO Daily January 22, 2024 12:00am June 17, 2024 2:49pm Start: 10-30-2023 End: 12-11-2023 take 1 tablet by mouth in the morning clopidogreL (PLAVIX) 75 mg tablet Take 1 tablet (75 mg total) by mouth in the morning. 30 tablet 1 10/30/2023 12/11/2023 Discontinued (Therapy completed) docusate sodium 50 mg / sennosides, group home 8.6 mg oral tablet (10 sources) Start: 07-27-2024 End: 05-02-2025 Sennosides-Docusate Sodium ( 2-In-1 Laxative) 8.6-50 mg tablet Discontinued 1 TAB-CAP PO Daily at bedtime October 06, 2024 1:00am May 02, 2025 11:33am Start: 04-09-2024 take 1 tablet by piyush th every twelve hours as needed for constipation 1 tablet, oral, Every 12 hours PRN, constipation, Starting on Fri04/09/24 at 1348 take 1 tablet by piyush th in the morning sennosides-docusate sodium (SENNA WITH DOCUSATE SODIUM) 8.6-50 mg Take 1 tablet by mouth in the morning. Active doxycycline hyclate 100 mg oral capsule (3 sources) Tetracycline-class Drug Start: 03-26-2024 End: 06-17-2024 take 1 capsule by mouth twice daily Doxycycline Hyclate 100 mg capsule Discontinued 100 MG PO Twice daily 14 March 26, 2024 12:00am June 17, 2024 2:43pm ertapenem 1000 mg injection (2 sources) Penem Antibacterial Start: 10-12-2024 End: 05-02-2025 take 1 g intravenously every twenty-four hours Ertapenem 1 gram Recon Soln Discontinued 1 GM IV Q24H 3 October 12, 2024 1:00am May 02, 2025 11:33am glimepiride 4 mg oral tablet (4 sources) [...] source) Start: 02-12-2024 End: 02-12-2024 60 mg, intra-articular , One-Time Injection, Starting on 02/11/24 at 0923, For 1 dose hydrOXYzine hydrochloride 50 mg oral tablet (5 sources) Antihistamine Start: 10-03-2024 End: 10-03-2024 take 50 mg by mouth once 50 mg, oral, Once, On 10/03/24 at 1500, For 1 dose Start: 06-17-2024 End: 07-27-2024 take 1 tablet by mouth three times daily as needed Hydroxyzine Hcl 25 mg tablet Discontinued 25 MG PO Three times daily as needed June 17, 2024 12:00am July 27, 2024 4:48pm take 1 tablet by piyush th every [...] insulin aspart, human 100 unt/ml pen injector (8 sources) Insulin Analog Start: 01-17-2024 End: 10-06-2024 Insulin Aspart U-100 (Novolog Flexpen U-100 Insulin) 100 unit/mL (3 mL) insulin pen Discontinued 1 sliding scale dose SUBCUT Use as Directed January 22, 2024 12:00am June 17, 2024 2:50pm NovoLOG FlexPen 100 UNIT/ML 15units Subcutaneous tid [...] First dose on Fri10/04/24 at 2100 Start: 06-17-2024 inject 15 [IU] by gaona bcutaneous injection at bedtime Insulin Glargine (Lantus U-100 Insulin) 100 unit/mL solution Active 15 UNIT SUBCUT Bedtime June 17, 2024 2:45pm Complies with drug therapy Start: 04-21-2024 inject 0.15 mL by gaona [...] stable 28 days at room temperature. Start: 03-31-2024 End: 06-17-2024 inject 25 [IU] by subcutaneous injection once daily Insulin Glargine (Lantus U-100 Insulin) 100 unit/mL solution Discontinued 25 UNIT SUBCUT Daily March 31, 2024 10:31am June 17, 2024 2:50pm Start: 01-22-2024 End: 03-31-2024 inject 15 [IU] by subcutaneous injection twice daily Insulin Glargine (Lantus U-100 Insulin) 100 unit/mL solution Discontinued 15 UNIT SUBCUT Twice daily January 22, 2024 12:00am March 31, 2024 6:26pm Start: 12-01-2023 Lantus SoloSta r 100 UNIT/ML [...] at 0826, For 1 dose, VESICANT (RED) lamoTRIgine 25 mg oral tablet (4 sources) Mood Stabilizer, Anti-epileptic Agent Start: 01-07-2025 End: 06-28-2025 take 1 tablet by mouth once daily Lamotrigine 25 mg tablet Discontinued 25 MG PO Daily May 02, 2025 12:00am June 28, 2025 2:04pm lisinopril 5 mg oral tablet (4 sources) Angiotensin Converting Enzyme Inhibitor Start: 10-16-2015 take 1 tablet by mouth every twenty-four hours Lisinopril 5 MG 1 tablet Orally Once a day for 0 days Sep, Not-Taking/PRN losartan potassium 25 mg oral tablet (7 sources) Angiotensin 2 Receptor Michael Start: 01-23-2024 End: 06-17-2024 take 1 tablet by mouth once daily Losartan 25 mg tablet Discontinued 25 MG PO Daily January 23, 2024 12:00am June 17, 2024 2:50pm meloxicam 15 mg oral tablet (7 sources) [...] evening meal for 90 *Pick strength-form from [employer] for eRX* Jun, Not-Taking/PRN mupirocin 0.02 mg/mg topical ointment (3 sources) RNA Synthetase Inhibitor Antibacterial Start: 03-26-2024 End: 06-17-2024 Mupirocin 2 % ointment Discontinued 1 APPLIC TOPICAL Twice daily 17 08March 26, 2024 12:00am June 17, 2024 2:50pm NovoLIN 70/30 FlexPen Relion (70-30) 100UNIT/ML (4 [...] evening meal for 30 *Pick strength-form from [employer] for eRX* Jul, Not-Taking/PRN pravastatin sodium 80 mg oral tablet [...] dose traMADol hydrochloride 50 mg oral tablet (4 sources) Opioid Agonist Start: 06-03-2024 End: 07-27-2024 take 1 tablet by mouth twice daily as needed for pain Tramadol 50 mg tablet Discontinued 50 MG PO Twice daily as needed for pain 60 30 June 03, 2024 12:00am July 27, 2024 4:49pm take 1 tablet by piyush th every [...] disease (1 source) Acute cerebrovascular disease Onset: 4 Acute posthemorrhagic anemia (4 sources) Acute posthemorrhagic anemia; Translations: [Acute posthemorrhagic anemia] Onset: 4 10-20-2024 Episodic Bacterial infection; unspecified site (5 sources) Infection due to ESBL bacteria; Translations: [Bacterial infection, unspecified] Onset: 4 10-09-2024 Episodic Biliary tract disease (6 sources) Polyp of gallbladder; Translations: [Cholesterolosis of gallbladder] Onset: 5 11-02-2024 Episodic Cardiac dysrhythmias (7 sources) Ventricular tachycardia; Translations: [Nonsustained ventricular tachycardia ] Onset: 4 10-25-2024 Chronic Comment on above: HOLTER: NSR, 1,857 V E (<1%), 1,806 PVC, 44 couplets, 7 beat VT, average rate 77bpm, slowest 38bpm and fastest 133 bpm (NSVT). Cardiac dysrhythmias (4 sources) Bradycardia; Translations: [Bradycardia, unspecified] Onset: 5 [...] 4 10-25-2024 Episodic Deficiency and other anemia (2 sources) Normocytic anemia; Translations: [Anemia, unspecified] 10-09-2024 Episodic Diabetes mellitus with complications (20 sources) Type 2 diabetes mellitus; Translations: [Type 2 diabetes mellitus with hyperglycemia] Onset: 4 Chronic Diabetes mellitus without complication (4 sources) [...] syndromes, not intractable, without status epilepticus] Onset: 5 Chronic Esophageal disorders (1 source) Gastroesophageal reflux disease without esophagitis; Translations: [Gastro-esophageal reflux disease without esophagitis] Onset: 5 Chronic Essential hypertension (20 sources) Essential hypertension; Translations: [Essential (primary) hypertension] Onset: 4 Chronic Comment on above: Echo: LVEF 60%, [...] [Headache, unspecified] Onset: 4 Hyperplasia of prostate (13 sources) Benign prostatic hypertrophy with outflow obstruction; Translations: [Benign prostatic hyperplasia with lower urinary tract symptoms] Onset: 4 Chronic Hypertension with complications and secondary hypertension (1 source) Hypertensive urgency ; Translations: [Hypertensive urgency] Onset: 5 Chronic Late effects of cerebrovascular disease (10 sources) Unspecified sequelae of cerebral infarction; Translations: [Sequela of cerebrovascular accident] Onset: 4 12-11-2023 Chronic Osteoarthritis (18 sources) Osteoarthritis of right knee joint; Translations: [Unilateral primary osteoarthritis, right knee] Onset: 4 01-23-2024 Chronic Other aftercare (4 sources) Long-term current use of insulin; 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] Episodic Other aftercare (4 sources) half-way (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 insulin; 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] Onset: 4 Episodic Other aftercare (4 sources) Long-term current use of anticoagulant; Translations: [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] Onset: 4 Episodic Other and ill-defined cerebrovascular disease (14 sources) Cerebral atherosclerosis; Translations: [Cerebral atherosclerosis] 01-22-2024 Chronic Comment on above: Right hemispheric CV A - 09/2023Right hemispheric CVA - TA neck: no carotid stenosis - TA head: right [place] stenosis - 10/2023MRI brain: right frontal lobe [...] Chronic Other connective tissue disease (1 source) History of arthroplasty of left knee; Translations: [Presence of left artificial knee joint] 03-26-2024 Chronic Other connective tissue disease (1 source) Unspecified symptoms and signs involving the nervous system; Translations: [Unspecified symptoms and signs involving the nervous system] Onset: 4 Episodic Other connective tissue disease (1 source) Neuralgia and neuritis, unspecified; Translations: [Neuralgia and neuritis, unspecified] Onset: 4 Episodic Other diseases of kidney and ureters (2 sources) Renal mass; Translations: [Other specified disorders of [...] Episodic Other diseases of kidney and ureters (4 sources) Acquired renal cystic disease; Translations: [Cyst of kidney, acquired] 09-29-2024 Episodic Comment on above: CT: 9.3cm renal cyst - 2023 (unchanged from 2016) CT: 9.3cm left renal cyst - 2023 (unchanged from 2016),MRI: benign left renal cyst - 11/2024 Other diseases of kidney and ureters (1 [...] Onset: 5 Episodic Other lower respiratory disease (2 sources) Hypoxia; Translations: [Hypoxemia] 10-06-2024 Episodic Other lower [...] and metabolic disorders (2 sources) Hypomagnesemia; Translations: [Hypomagnesemia] 10-20-2024 Chronic Other nutritional; [...] caused by tuberculosis or sexually transmitted disease) (2 sources) Hypertrophic cardiomyopathy; Translations: [Other hypertrophic cardiomyopathy] 08-18-2024 Chronic Comment on above: ECHO: LVEF 75%, sept al hypertrophy, normal RV size/function, RVSP 07/2024 ECHO: LVEF 75%, sept al hypertrophy, normal RV size/function, RVSP 07/2024,MRI: not consistent w/ HCOM Residual codes; unclassified (1 source) Pain, unspecified; [...] Spondylosis; intervertebral disc disorders; other back problems (2 sources) Low back pain; Translations: [Low back pain] 06-03-2024 Episodic Substance-related disorders (15 sources) Nicotine dependence; Translations: [Nicotine dependence, cigarettes, uncomplicated] Chronic Superficial injury; contusion (9 sources) Contusion of right wrist, initial encounter; Translations: [Contusion of right hand, initial encounter] Episodic Syncope (4 sources) Syncope; Translations: [Syncope and collapse] Onset: [...] 18, rash, or malnutrition. Urinary tract infections (8 sources) Urinary tract infectious disease; Translations: [Urinary tract infection, site not specified] Onset: 4 10-09-2024 Episodic Past or Other Problems Problem Classification Problem Date Documented Date Episodic/Chronic Acute and unspecified renal failure (10 sources) Acute kidney failure, unspecified; Translations: [Acute renal failure syndrome] Onset: 04-09-2024 04-09-2024 Episodic Blindness and vision defects (13 sources) [...] Episodic Other disorders of stomach and duodenum (2 sources) Mass of duodenum; Translations: [Other diseases of [...] Test Name Value Interpretation Reference Range Facility Basophils Auto (Bld) [#/Vol] Ordered By: Cyndy Marker on 06-12-2025 Basophils (Bld) [#/Vol] 0.0 10 3/uL 0.0-0.1 [facility] Basophils/100 WBC Auto (Bld) Ordered By: Cyndy Marker on 06-12-2025 Basophils/100 WBC (Bld) 0.9 % 0.2-2.0 [facility] Eosinophils/100 WBC Auto (Bl d)Ordered By: Cyndy Marker on 06-12-2025 Eosinophils/100 WBC (Bld) 5.8 % 0.9-7.0 [facility] Erythrocyte distribution wid th Auto (RBC) [Ratio]Ordered By: Cyndy Marker on 06-12-2025 Erythrocyte distribution width (RBC) [Ratio] 15.9 % High 11.0-15.0 [facility] Glomerular filtration rate ( GFR) estimation in non- AmericanOrdered By: Cyndy Marker on 06-12-2025 GFR/1.73 sq M.predicted among non-blacks MDRD (S/P/Bld) [Vol rate/Area] mL/min/{1.73_m2} >=60 mL/min/1.7 3m 2 [facility] Hematocrit Auto (Bld) [Volum e fraction]Ordered By: Cyndy Marker on 06-12-2025 Hematocrit (Bld) [Volume fraction] 35.7 % Low 42.0-54.0 [facility] Hemoglobin [Mass/volume] in BloodOrdered By: Cyndy Marker on 06-12-2025 Hemoglobin (Bld) [Mass/Vol] 11.6 g/dL Low 14.0-18.0 [facility] Laboratory - Chemistry and C hemistry - challengeOrdered By: Cyndy Marker on 06-12-2025 Calcium [Mass/Vol] 8.8 mg/dL 8.5-10.1 [facility] Chloride [Moles/Vol] 103 mmol/L 98-107 [facility] CO2 [Moles/Vol] 33.7 mmol/L High 21.0-32.0 [facility] Creatinine [Mass/Vol] 0.60 mg/dL Low 0.70-1.30 [facility] GFR/1.73 sq M.predicted MDRD (S/P/Bld) [Vol rate/Area] mL/min/{1.73_m2} >=60 mL/min/1.7 3m 2 [facility] Glucose [Mass/Vol] 225 mg/dL High 74-106 [facility] Potassium [Moles/Vol] 4.1 mmol/L 3.5-5.1 [facility] Sodium [Moles/Vol] 137 mmol/L 136-145 [facility] Urea nitrogen [Mass/Vol] 20.0 mg/dL High 7.0-18.0 [facility] Urea nitrogen/Creatinine [Mass ratio] 33.3 mg/mg [facility] Laboratory - Hematology and Cell countsOrdered By: Cyndy Marker on 06-12-2025 Immature granulocytes/100 WBC (Bld) 0.2 % 0.0-0.5 [facility] Leukocytes [#/volume] correc willian for nucleated erythrocytes in Blood by Automated counOrdered By: Cyndy Marker on 06-12-2025 WBC corrected for nucl RBC Auto (Bld) [#/Vol] 4.3 10 3/uL 4.0-11.0 [facility] Lymphocytes Auto (Bld) [#/Vo l]Ordered By: Cyndy Marker on 06-12-2025 Lymphocytes (Bld) [#/Vol] 1.6 10 3/uL 1.2-3.8 [facility] Lymphocytes/100 WBC Auto (Bl d)Ordered By: Cyndy Marker on 06-12-2025 Lymphocytes/100 WBC (Bld) 36.7 % 20.5-60.0 [facility] MCH Auto (RBC) [Entitic mass ]Ordered By: Cyndy Marker on 06-12-2025 MCH (RBC) [Entitic mass] 26.2 pg 25.9-34.0 [facility] MCHC Auto (RBC) [Mass/Vol]Or dered By: Cyndy Marker on 06-12-2025 MCHC (RBC) [Mass/Vol] 32.5 g/dL 29.9-35.2 [facility] MCV Auto (RBC) [Entitic vol] Ordered By: Cyndy Marker on 06-12-2025 MCV (RBC) [Entitic vol] 80.8 fL 80.0-94.0 [facility] Monocytes Auto (Bld) [#/Vol] Ordered By: Cyndy Marker on 06-12-2025 Monocytes (Bld) [#/Vol] 0.4 10 3/uL 0.3-0.8 [facility] Monocytes/100 WBC Auto (Bld) Ordered By: Cyndy Marker on 06-12-2025 Monocytes/100 WBC (Bld) 8.3 % 1.7-12.0 [facility] Neutrophils Auto (Bld) [#/Vo l]Ordered By: Cyndy Marker on 06-12-2025 Neutrophils (Bld) [#/Vol] 2.1 10 3/uL 1.4-6.5 [facility] Neutrophils/100 WBC Auto (Bl d)Ordered By: Cyndy Marker on 06-12-2025 Neutrophils/100 WBC (Bld) 48.1 % 43.0-75.0 [facility] No Panel InformationOrdered By: Cyndy Marker on 06-12-2025 Eosinophils # (Auto) 0.3 10 3/uL 0.0-0.7 [facility] Immature Granulocyte # (Auto) 0.01 10 3/uL 0.00-0.03 [facility] Troponin I High Sensitivity 4.8 pg/mL 4.0-76.1 [facility] Comment on above: CUT-OFF POINTS HAVE BEEN [...] IN CONJUNCTIONWITH OTHER DIAGNOSTIC AND CLINICAL INFORMATION. Platelet mean volume Auto (B ld) [Entitic vol]Ordered By: Cyndy Marker on 06-12-2025 Platelet mean volume (Bld) [Entitic vol] 9.3 fL Low 9.5-13.5 [facility] Platelets Auto (Bld) [#/Vol] Ordered By: Cyndy Marker on 06-12-2025 Platelets (Bld) [#/Vol] 271 10 3/uL 150-450 [facility] RBC Auto (Bld) [#/Vol]Ordere d By: Cyndy Marker on 06-12-2025 RBC (Bld) [#/Vol] 4.42 10 6/uL Low 4.70-6.[address] [facility] Serum or plasma anion gap de terminationOrdered By: Cyndy Marker on 06-12-2025 Anion gap [Moles/Vol] 4.4 mmol/L [facility] Activated partial thrombopla stin time (aPTT) in platelet poor plasma by coagulation aOrdered By: Outside Provider on 05-30-2025 aPTT Coag (PPP) [Time] 27.2 s 22.3-36.2 [facility] Basophils Auto (Bld) [#/Vol] Ordered By: Outside Provider on 05-30-2025 Basophils (Bld) [#/Vol] 0.1 10 3/uL 0.0-0.1 [facility] Basophils/100 WBC Auto (Bld) Ordered By: Outside Provider on 05-30-2025 Basophils/100 WBC (Bld) 1.3 % 0.2-2.0 [facility] Eosinophils/100 WBC Auto (Bl d)Ordered By: Outside Provider on 05-30-2025 Eosinophils/100 WBC (Bld) 4.7 % 0.9-7.0 [facility] Erythrocyte distribution wid th Auto (RBC) [Ratio]Ordered By: Outside Provider on 05-30-2025 Erythrocyte distribution width (RBC) [Ratio] 16.7 % High 11.0-15.0 [facility] Globulin Calc (S) [Mass/Vol] Ordered By: Outside Provider on 05-30-2025 Globulin (S) [Mass/Vol] 3.5 g/dL [facility] Glomerular filtration rate ( GFR) estimation in non- AmericanOrdered By: Outside Provider on 05-30-2025 GFR/1.73 sq M.predicted among non-blacks MDRD (S/P/Bld) [Vol rate/Area] mL/min/{1.73_m2} >=60 mL/min/1.7 3m 2 [facility] Hematocrit Auto (Bld) [Volum e fraction]Ordered By: Outside Provider on 05-30-2025 Hematocrit (Bld) [Volume fraction] 34.4 % Low 42.0-54.0 [facility] Hemoglobin [Mass/volume] in BloodOrdered By: Outside Provider on 05-30-2025 Hemoglobin (Bld) [Mass/Vol] 11.3 g/dL Low 14.0-18.0 [facility] INR in Platelet poor plasma by Coagulation assayOrdered By: Outside Provider on 05-30-2025 INR Coag (PPP) [Relative time] 1.08 {INR} [facility] Comment on above: DESIRED INR:2.0-3.0 CONDITIONS NOT LISTED BELOW2.5-3.5 FOR PROSTHETIC HEART VALVE REPLACEMENT2.5-3.5 RECURRENT THROMBOSIS Laboratory - Chemistry and C hemistry - challengeOrdered By: Outside Provider on 05-30-2025 Albumin [Mass/Vol] 3.4 g/dL 3.4-5.0 [facility] ALP [Catalytic activity/Vol] 100 U/L 46-116 [facility] ALT [Catalytic activity/Vol] 19 U/L 16-63 [facility] AST [Catalytic activity/Vol] 8 U/L Low 15-37 [facility] Bilirubin [Mass/Vol] 0.4 mg/dL 0.2-1.0 [facility] Bilirubin.direct [Mass/Vol] 0.1 mg/dL 0.0-0.2 [facility] Lipase [Catalytic activity/Vol] 29.0 U/L 16.0-77.0 [facility] Protein [Mass/Vol] 6.9 g/dL 6.4-8.2 [facility] Calcium [Mass/Vol] 9.4 mg/dL 8.5-10.1 [facility] Chloride [Moles/Vol] 102 mmol/L 98-107 [facility] CO2 [Moles/Vol] 31.0 mmol/L 21.0-32.0 [facility] Creatinine [Mass/Vol] 0.57 mg/dL Low 0.70-1.30 [facility] GFR/1.73 sq M.predicted MDRD (S/P/Bld) [Vol rate/Area] mL/min/{1.73_m2} >=60 mL/min/1.7 3m 2 [facility] Glucose [Mass/Vol] 185 mg/dL High 74-106 [facility] Natriuretic peptide B (Bld) [Mass/Vol] 59.0 pg/mL <=900.0 [facility] Potassium [Moles/Vol] 4.1 mmol/L 3.5-5.1 [facility] Sodium [Moles/Vol] 137 mmol/L 136-145 [facility] Urea nitrogen [Mass/Vol] 25.0 mg/dL High 7.0-18.0 [facility] Urea nitrogen/Creatinine [Mass ratio] 43.9 mg/mg [facility] Laboratory - Hematology and Cell countsOrdered By: Outside Provider on 05-30-2025 Immature granulocytes/100 WBC (Bld) 0.5 % 0.0-0.5 [facility] Leukocytes [#/volume] correc willian for nucleated erythrocytes in Blood by Automated counOrdered By: Outside Provider on 05-30-2025 WBC corrected for nucl RBC Auto (Bld) [#/Vol] 3.8 10 3/uL Low 4.0-11.0 [facility] Lymphocytes Auto (Bld) [#/Vo l]Ordered By: Outside Provider on 05-30-2025 Lymphocytes (Bld) [#/Vol] 1.4 10 3/uL 1.2-3.8 [facility] Lymphocytes/100 WBC Auto (Bl d)Ordered By: Outside Provider on 05-30-2025 Lymphocytes/100 WBC (Bld) 36.0 % 20.5-60.0 [facility] MCH Auto (RBC) [Entitic mass ]Ordered By: Outside Provider on 05-30-2025 MCH (RBC) [Entitic mass] 26.0 pg 25.9-34.0 [facility] MCHC Auto (RBC) [Mass/Vol]Or dered By: Outside Provider on 05-30-2025 MCHC (RBC) [Mass/Vol] 32.8 g/dL 29.9-35.2 [facility] MCV Auto (RBC) [Entitic vol] Ordered By: Outside Provider on 05-30-2025 MCV (RBC) [Entitic vol] 79.3 fL Low 80.0-94.0 [facility] Monocytes Auto (Bld) [#/Vol] Ordered By: Outside Provider on 05-30-2025 Monocytes (Bld) [#/Vol] 0.3 10 3/uL 0.3-0.8 [facility] Monocytes/100 WBC Auto (Bld) Ordered By: Outside Provider on 05-30-2025 Monocytes/100 WBC (Bld) 7.1 % 1.7-12.0 [facility] Neutrophils Auto (Bld) [#/Vo l]Ordered By: Outside Provider on 05-30-2025 Neutrophils (Bld) [#/Vol] 1.9 10 3/uL 1.4-6.5 [facility] Neutrophils/100 WBC Auto (Bl d)Ordered By: Outside Provider on 05-30-2025 Neutrophils/100 WBC (Bld) 50.4 % 43.0-75.0 [facility] No Panel InformationOrdered By: Outside Provider on 05-30-2025 Troponin I High Sensitivity 5.0 pg/mL 4.0-76.1 [facility] Comment on above: CUT-OFF POINTS HAVE BEEN [...] Eosinophils # (Auto) 0.2 10 3/uL 0.0-0.7 [facility] Immature Granulocyte # (Auto) 0.02 10 3/uL 0.00-0.03 [facility] Platelet mean volume Auto (B ld) [Entitic vol]Ordered By: Outside Provider on 05-30-2025 Platelet mean volume (Bld) [Entitic vol] 8.9 fL Low 9.5-13.5 [facility] Platelets Auto (Bld) [#/Vol] Ordered By: Outside Provider on 05-30-2025 Platelets (Bld) [#/Vol] 220 10 3/uL 150-450 [facility] Prothrombin time (PT)Ordered By: Outside Provider on 05-30-2025 PT Coag (PPP) [Time] 11.4 s 9.0-11.6 [facility] RBC Auto (Bld) [#/Vol]Ordere d By: Outside Provider on 05-30-2025 RBC (Bld) [#/Vol] 4.34 10 6/uL Low 4.70-6.[address] [facility] Serum or plasma albumin/glob ulin mass ratioOrdered By: Outside Provider on 05-30-2025 Albumin/Globulin [Mass ratio] 1.0 {ratio} [facility] Serum or plasma anion gap de terminationOrdered By: Outside Provider on 05-30-2025 Anion gap [Moles/Vol] 8.1 mmol/L [facility] Ambulatory Visit Summaryon 0 05-09-2025 Ambulatory Visit Summary Ambulatory Visit Summary VASHTI MASSEY :1955 Visit Date:05/09/2025 Ambulatory Visit Instructions Your Diagnosis Gross hematuria BPH with urinary obstruction History of UTI Complex renal cyst Anticoagulated Your Care Team Attending Physician - SEJAL TOWNSEND, JAROCHO Primary Care Physician - BALL DO, ELEAZAR This Is Your Medications List betamethasone-clotrimaz ole [...] JAROCHO POST MD Where: [facility] [place] [address] [place] [address]- You Need to Schedule the Following Appointments Follow Up with SEJAL TOWNSEND, VAN AVENDAÑO When: Where: Medications What How Much When [...] Unknown, Oral (more content not included)... Normal [facility] Urology Office/Clinic Noteon 05-09-2025 Urology Office/Clinic Note Urology Office/Clinic Note Chief Complaint follow up to [facility] ER HPI Staff 69 year old male here for follow up to [facility] inpatient stay (04/24-04/28) admitted due to acute [...] nourished, well developed male. Assessment/Plan Resides at [facility]. Pt accompanied by daughter today. Portions of this record may have been created with voice recognition artificial intelligence software, specifically [employer], [employer] and or [employer]. Substitutions may have occurred due to the inherent limitations of voice recognition and artificial intelligence software. 1. Gross hematuria (R31.0: Gross hematuria) CT Abdomen 10/06/24 - Cyr catheter in good position. Small clot burden in bladder. ~Renal function 10/06/24 ~Cr 0.68. eGFR >[address] [facility] ER 10/06/24 due to gross hematuria and clot retention. CT Abdomen 10/06/24 - Cyr catheter in good position. Small clot burden in bladder. Renal function 10/06/24 ~Cr 0.68. eGFR >60 Dr. Pereira consulted 10/08/24 ~has had two admissions over the past couple weeks for gross hematuria with clot retention. He was discharged from [facility] in [place] 1 day prior to admission to [facility]. Has not seen a urologist as an outpatient. S/p cysto, BL RPG, bladder fulguration, clot evacuation 10/06/24 ~neg for b.t. Grade 3 trabeculation. 20 Fr three-way Cyr catheter was placed. Urology consult note 10/10/24 Dr. Pereira ~hgb slightly improved over the past 2 days. Continue Finasteride 5mg qd and Cyr catheter upon discharge. Exchange Cyr [id number]. MRI of kidney to further eval complex cyst. Urology consult note 10/12/24 Dr. Portillo due to pt being concerned about why he was at [facility] vs [facility]. Dr. Portillo agreed with Dr. Pereira's plan. F/up as scheduled with urologist in the outpatient setting. Gross hematuria likely secondary to enlarged prostate. [facility] ER 10/28/24 due to gross hematuria/clot retention seen by KML in consult - bladder scan with Cyr in showed >488cc, Cyr was replaced with [address] Will cont q4wk Cyr exchanges with long term staff. 2. BPH with urinary obstruction (N40.1: [...] catheter bag. No leaking around the catheter. group home has been changing his catheter. Pt states he is no longer having diarrhea which went on for weeks. Discussed TOV however may result in functional incontinence and pressure ulcers if long term staff does not take pt to void [...] MRSA Dolly (more content not included)... Normal [facility] Comment on above: Result Comment: Elec tronically Signed By: JAROCHO POST MD\.br\Date and Time Signed: 05/09/25 11:10 EDT\.br\Electronically Co-Signed By: Simin [email or web address]\Date and Time Co-Signed: 05/09/25 10:50 EDT BMPon 04-28-2025 Anion gap [Moles/Vol] 15 mmol/L Normal 6-16 [facility] Comment on above: Performed By: #### [id number] #### [facility] [address] [place] [address] BUN/Creat Ratio 32 No Units High 10-[address] [facility] Comment on above: Performed By: #### [id number] #### [facility] [address] [place] [address] Calcium [Mass/Vol] 9.3 mg/dL Normal 8.9-11.1 [facility] Comment on above: Performed By: #### [id number] #### [facility] [address] [place] [address] Chloride [Moles/Vol] 103 mmol/L Normal 101-111 [facility] Comment on above: Performed By: #### 2 [id number] #### [facility] [address] [place] [address] CO2 [Moles/Vol] 22 mmol/L Normal 21-31 [facility] [facility] Comment on above: Performed By: #### 2 [id number] #### [facility] [address] [place] [address] Creatinine [Mass/Vol] 0.5 mg/dL Normal 0.5-1.3 [facility] Comment on above: Performed By: #### 2 [id number] #### [facility] [address] [place] [address] Glucose [Mass/Vol] 133 mg/dL Normal 55-199 [facility] Comment on above: Performed By: #### 2 [id number] #### [facility] [address] [place] [address] Potassium [Moles/Vol] 4.2 mmol/L Normal 3.5-5.3 [facility] Comment on above: Performed By: #### 2 [id number] #### [facility] [address] [place] [address] Sodium [Moles/Vol] 136 mmol/L Normal 135-145 [facility] Comment on above: Performed By: #### 2 193907 #### [facility] [address] [place] [address] Urea nitrogen [Mass/Vol] 16 mg/dL Normal 5-21 [facility] Comment on above: Performed By: #### 2 [id number] #### [facility] [address] [place] [address] C Urineon 07-03-2025 Bacteria identified Cx Nom (U) Microbiology PROCEDURE: [...] Locations R1: This test was performed at: [facility], [address] [place] [address], [address] , , [facility] Comment on above: Performed By: #### 2 [id number] #### [facility] [address] [place] [address] CHEMISTRYOrdered By: Lab ROP User on 04-28-2025 Glucose [Mass/Vol] 136 mg/dL High 55 - 99 mg/dL [facility] POC Subsection Comment on above: Result Comment: Jasvir MESA POC Device SN [id number] Invalid Interpretation Code [facility] POC Subsection POC Username INGRIS ESPINOZA Invalid Interpretation Code [facility] POC Subsection Sodium [Moles/Vol] [id number] mmol/L Invalid Interpretation Code [facility] POC Subsection Glucose [Mass/Vol] 129 mg/dL High 55 - 99 mg/dL [facility] POC Subsection Comment on above: Result Comment: Jasvir MESA POC Device SN [id number] Invalid Interpretation Code [facility] POC Subsection POC Username SPARKLE LYN Invalid Interpretation Code [facility] POC Subsection Sodium [Moles/Vol] [id number] mmol/L Invalid Interpretation Code [facility] POC Subsection CHEMISTRYOrdered By: SYSTEM SYSTEM on [...] 40 mcg/mL Remisol Chem Capillary Glucose POCon 07- Glucose [Mass/Vol] 136 mg/dL High 55-99 [facility] Comment on above: Result Comment: Jasvir pickering RN/ Performed By: #### 2 [id number] #### [facility] [address] [place] [address] Glucose [Mass/Vol] 129 mg/dL High 55-99 [facility] Comment on above: Result Comment: Jasvir pickering RN/ Performed By: #### 2 [id number] #### [facility] [address] [place] [address] Discharge Note-Nursingon Discharge Note-Nursing Discharge Note-Nu rsing [...] in the voicemail. Patient was discharged to [facility]. Normal [facility] Discharge Note-Nursing Discharge Note-Nu rsing VASHTI MASSEY :1955 Visit Date:04/24/2025 Inpatient Discharge Instructions Your Care Team Admitting Physician - Dionte COKER DO Consulting Physician - Eduar Lawrence MD Reason for Your Visit witnessed seizure by [facility] staff approximately 45 seconds Your [...] Single View This Is Your Medications List [facility] Prescription (METOPROL SUC 50MG ER TAB) acetaminophen [...] Follow-Up Appointments Friday 3:00 PM EST With: JAROCOH POST MD Where: [facility] [address] [place], [place] [address] [address]- New Follow Up Appointments after Discharge Follow Up with Follow-up with your urologist as soon as possible for Cyr catheter replacement When: Within 3 to 5 days Comments: Call for followup appointment Follow Up with ELEAZAR MAYORGA When: Within 2 to 3 days Where: [address] [place] [address]- Business (1) Follow Up with Neurology When: Within 2 to 4 weeks Comments: Call [phone] for follow up appt Where: The Following [...] Unchanged insu (more content not included)... Normal [facility] Extra Lav Microon 04-28-2025 WB Tube Collected Yes Invalid Interpretation Code [facility] Comment on above: Performed By: #### 1 [id number] #### [facility] [address] [place] [address] Inpatient Clinical Summaryon 04-28-2025 Inpatient Clinical Summary Inpatient Clinical Summary [address] [address] Clinical Summary Person Information: Name: VASHTI MASSEY Age: 69 Years : 1955 Sex: Male PCP: ELEAZAR MAYORGA DO Marital Status: Single Race: White Ethnicity: Non- or Language: Serbian Visit Id: Visit Reason: Seizure; SEIZURE Speciality: Acuity: Enc Type: Inpatient Med Service: Medical Arrival: 04/24/2025 20:07:12 Discharge: Dispo Type: Admitted as IP to this Hosp Address: [address] [place] [place] [id number] Provider Notes: Diagnosis: 2:Catheter-associated urinary tract infection; [...] appointment With: Address: When: ELEAZAR MAYORGA [address] [facility] [place] [address] Business (1) Within 2 to 3 days With: Address: When: Neurology Within 2 to 4 weeks Comments: Call [phone] for follow up appt Type Location Start [facility] Office Visit [facility] JOSE Arellano 10/07/2025 3:00 PM 10/07 (more content not included)... Normal [facility] Inpatient Patient Summaryon 04-28-2025 Inpatient Patient Summary Inpatient Patient Summary [address] [address] Patient Discharge Instructions PERSON INFORMATION [...] infection, site not specified Condition at Discharge: Improved VASHTI MASSEY has been given the following [...] for followup appointment With: Address: When: ELEAZAR Burkett[address] [facility] [place] [address] Business (1) Within 2 to 3 days With: Address: When: Neurology Within 2 to 4 weeks Comments: Call [phone] for follow up appt In the event that this physician does not participate in your insurance network, please consult with your insurance company to find a nearby participating provider. Type Location Start [facility] Office Visit [facility] JOSE Arellano 10/07/2025 3:00 PM 10/07/2025 3:15 PM Confirmed [...] insulin lispro (Adme (more content not included)... [facility] Interdisciplinary Note - Indra e Manageron 04-28-2025 Interdisciplinary Note - Combination Welder Apprentice Interdisciplinary Note - Combination Welder Apprentice rounded with Dr Woodruff and plan is for patient to DC back to LTC at [facility] today. Attending states no IV ATB required at DC and facility updated and confirm they can accept today. CM called daughter, Bhumika at [phone] and notified of DC and transport time. CM followed up with patient at bedside who was resting and did not awake to CM calling out his name. IMM copy left at bedside. All in agreement with plan. [facility] Comment on above: Result Comment: Elec tronically Signed By: Debo Plummer.br\Date and Time Signed: 04/28/25 10:44 EDT Vanco Peakon 04-28-2025 Vanco Pk 24 microgram/mL Normal 20-40 [facility] Comment on above: Order Comment: pleas e draw level one hour after infusion Performed By: #### 2 [id number] #### [facility] [address] [place] [address] Vanco Troughon 04-28-2025 Vanco Tr 15 microgram/mL Normal 10-20 [facility] Comment on above: Order Comment: pleas e draw level one hour before dose Performed By: #### 2 [id number] #### [facility] [address] [place] [address] eGFRon 04-28-2025 eGFR 109 mL/min/1.73 m2 Normal >=59 [facility] Comment on above: Performed By: #### 1 [id number] #### [facility] [address] [place] [address] CHEMISTRYOrdered By: Lab ROP User on 04-27-2025 Glucose [Mass/Vol] 182 mg/dL High 55 - 99 mg/dL [facility] POC Subsection POC Device SN [id number] Invalid Interpretation Code [facility] POC Subsection POC Username HUNG BERNAL Invalid Interpretation Code [facility] POC Subsection Sodium [Moles/Vol] [id number] mmol/L Invalid Interpretation Code [facility] POC Subsection Capillary Glucose POCon Glucose [Mass/Vol] 182 mg/dL High 55-99 [facility] Comment on above: Performed By: #### 2 [id number] #### [facility] [address] [place] [address] Glucose [Mass/Vol] 166 mg/dL High 55-99 [facility] Comment on above: Result Comment: Jasvir MESA Performed By: #### 2 [id number] #### [facility] [address] [place] [address] Glucose [Mass/Vol] 181 mg/dL High 55-99 [facility] Comment on above: Result Comment: Jasvir MESA Performed By: #### 2 [id number] #### [facility] [address] [place] [address] Glucose [Mass/Vol] 130 mg/dL High 55-99 [facility] Comment on above: Result Comment: Jasvir MESA Performed By: #### 2 [id number] #### [facility] [address] [place] [address] EMS Documentationon 04-27-20 EMS Documentation Report Please click on link to see report Normal [facility] Comment on above: Result Comment: Miss granado Attachment - attachment exceeds size limitation [id number] Can be viewed in source system Interdisciplinary Note - Indra e Manageron 04-27-2025 Interdisciplinary Note - Combination Welder Apprentice Interdisciplinary Note - Combination Welder Apprentice CM rounded with Dr Woodruff and cultures back, patient started on IV ATB at this time. CM provided updates to [facility]. CM to follow for DC planning needs and DC date. Normal [facility] Comment on above: Result Comment: Elec tronically Signed By: Debo Plummer I\.br\Date and Time Signed: 04/27/25 11:18 EDT Capillary Glucose POCon Glucose [Mass/Vol] 195 mg/dL High 55-99 [facility] Comment on above: Result Comment: Jasvir MESA Performed By: #### 2 [id number] #### [facility] [address] [place] [address] Glucose [Mass/Vol] 125 mg/dL High 55-99 [facility] Comment on above: Result Comment: Jasvir MESA Performed By: #### 2 [id number] #### [facility] [address] [place] [address] Glucose [Mass/Vol] 156 mg/dL High 55-99 [facility] Comment on above: Result Comment: Jasvir MESA Performed By: #### 2 [id number] #### [facility] [address] [place] [address] Glucose [Mass/Vol] 182 mg/dL High 55-99 [facility] Comment on above: Result Comment: Jasvir MESA Performed By: #### 2 [id number] #### [facility] [address] [place] [address] Interdisciplinary Note - Indra e Manageron 04-26-2025 Interdisciplinary Note - Combination Welder Apprentice Interdisciplinary Note - Combination Welder Apprentice Plan remains to return to LTC at [facility] when medically stable. CM rounded with Dr Woodruff and DC pending urine culture. Possible DC today or tomorrow. Facility updated. IMM reviewed. All in agreement with DC plan. Normal [facility] Comment on above: Result Comment: Elec tronically Signed By: Debo Plummer I\.br\Date and Time Signed: 04/26/25 10:27 EDT BMPon 04-25-2025 Anion gap [Moles/Vol] 11 mmol/L Normal 6-16 [facility] Comment on above: Performed By: #### 2 [id number] #### [facility] [address] [place] [address] BUN/Creat Ratio 32 No Units High 10-[address] [facility] Comment on above: Performed By: #### 2 [id number] #### [facility] [address] [place] [address] Calcium [Mass/Vol] 9.3 mg/dL Normal 8.9-11.1 [facility] Comment on above: Performed By: #### 2 [id number] #### [facility] [address] [place] [address] Chloride [Moles/Vol] 98 mmol/L Low 101-111 [facility] Comment on above: Performed By: #### 2 [id number] #### [facility] [address] [place] [address] CO2 [Moles/Vol] 29 mmol/L Normal 21-31 [facility] Comment on above: Performed By: #### 2 [id number] #### [facility] [address] [place] [address] Creatinine [Mass/Vol] 0.5 mg/dL Normal 0.5-1.3 [facility] Comment on above: Performed By: #### 2 [id number] #### [facility] [address] [place] [address] Glucose [Mass/Vol] 177 mg/dL Normal 55-199 [facility] Comment on above: Performed By: #### 2 [id number] #### [facility] [address] [place] [address] Potassium [Moles/Vol] 3.7 mmol/L Normal 3.5-5.3 [facility] Comment on above: Performed By: #### 2 [id number] #### [facility] [address] [place] [address] Sodium [Moles/Vol] 134 mmol/L Low 135-145 [facility] Comment on above: Performed By: #### 2 [id number] #### [facility] [address] [place] [address] Urea nitrogen [Mass/Vol] 16 mg/dL Normal 5-21 [facility] Comment on above: Performed By: #### 2 [id number] #### [facility] [address] [place] [address] CBC w/ Auto Diffon 5 Anisocytosis Ql (Bld) PRESENT Invalid Interpretation Code [facility] Comment on above: Performed By: #### 2 [id number] #### [facility] [address] [place] [address] Basophil Absolute 0.1 E9/L Normal 0.0-0.2 [facility] Comment on above: Performed By: #### 2 407119 #### [facility] [address] [place] [address] Basophils/100 WBC (Bld) 1.5 % Normal 0.0-2.0 [facility] Comment on above: Performed By: #### 2 120909 #### [facility] [address] [place] [address] Elliptocytes PRESENT Invalid Interpretation Code [facility] Comment on above: Performed By: #### 2 [id number] #### [facility] [address] [place] [address] Eos Absolute 0.1 E9/L Normal 0.0-0.5 [facility] Comment on above: Performed By: #### 2 252154 #### [facility] [address] [place] [address] Eosinophils/100 WBC (Bld) 1.6 % Normal 0.0-8.0 [facility] Comment on above: Performed By: #### 2 112217 #### [facility] [address] [place] [address] Erythrocyte distribution width (RBC) [Ratio] 20.5 % High 10.9-14.2 [facility] Comment on above: Performed By: #### 2 [id number] #### [facility] [address] [place] [address] Hematocrit (Bld) [Volume fraction] 34.2 % Low 37.7-49.0 [facility] Comment on above: Performed By: #### 2 [id number] #### [facility] [address] [place] [address] Hemoglobin (Bld) [Mass/Vol] 11.5 g/dL Low 13.5-17.5 [facility] Comment on above: Performed By: #### 2 [id number] #### [facility] [address] [place] [address] Hypochromasia PRESENT Invalid Interpretation Code [facility] Comment on above: Performed By: #### 2 [id number] #### [facility] [address] [place] [address] Lymph Absolute 1.4 E9/L Normal 1.0-4.0 [facility] Comment on above: Performed By: #### 2 109732 #### [facility] [address] [place] [address] Lymphocytes/100 WBC (Bld) 35.5 % Normal 14.0-50.0 [facility] Comment on above: Performed By: #### 2 108159 #### [facility] [address] [place] [address] MCH (RBC) [Entitic mass] 24.0 pg Low 27.0-34.0 [facility] Comment on above: Performed By: #### 2 448941 #### [facility] [address] [place] [address] MCHC (RBC) [Mass/Vol] 33.6 g/dL Normal 31.4-36.0 [facility] Comment on above: Performed By: #### 2 804506 #### [facility] [address] [place] [address] MCV (RBC) [Entitic vol] 71.4 fL Low 80.0-100.0 [facility] Comment on above: Performed By: #### 2 139586 #### [facility] [address] [place] [address] Microcyte PRESENT Invalid Interpretation Code [facility] Comment on above: Performed By: #### 2 [id number] #### [facility] [address] [place] [address] [place] Absolute 0.3 E9/L Normal 0.2-1.0 [facility] Comment on above: Performed By: #### 2 353129 #### [facility] [address] [place] [address] Monocytes/100 WBC (Bld) 7.1 % Normal 4.0-14.0 [facility] Comment on above: Performed By: #### 2 115410 #### [facility] [address] [place] [address] Neutro Absolute 2.2 E9/L Normal 2.0-7.5 [facility] Comment on above: Performed By: #### 2 535344 #### [facility] [address] [place] [address] Neutro Auto 54.3 % Normal 36.0-75.0 [facility] Comment on above: Performed By: #### 2 [id number] #### [facility] [address] [place] [address] Platelet 241.0 E9/L Normal 150.0-500. 0 [facility] Comment on above: Performed By: #### 2 [id number] #### [facility] [address] [place] [address] Platelet mean volume (Bld) [Entitic vol] 6.8 fL Normal 6.4-10.8 [facility] Comment on above: Performed By: #### 2 837275 #### [facility] [address] [place] [address] RBC 4.8 E12/L Normal 4.3-5.9 [facility] Comment on above: Performed By: #### 2 632807 #### [facility] [address] [place] [address] RBC morphology finding Nom (Bld) SEE MORPHOLOGY Invalid Interpretation Code [facility] Comment on above: Performed By: #### 2 205842 #### [facility] [address] [place] [address] WBC 4.0 E9/L Normal 4.0-11.0 [facility] Comment on above: Performed By: #### 2 [id number] #### [facility] [address] [place] [address] CHEMISTRYOrdered By: SYSTEM SYSTEM on 04-25-2025 Anion [...] DO Transcribed by: LESTER Technologist: GUILLAUME Beltrán [facility] Capillary Glucose POCon 03-29 Glucose [Mass/Vol] 151 mg/dL High 55-99 [facility] Comment on above: Result Comment: Jasvir pickering RN/ Performed By: #### 2 [id number] #### [facility] [address] [place] [address] Glucose [Mass/Vol] 166 mg/dL High 55-99 [facility] Comment on above: Result Comment: Jasvir pickering RN/ Performed By: #### 2 [id number] #### [facility] [address] [place] [address] Glucose [Mass/Vol] 155 mg/dL High 55-99 [facility] Comment on above: Result Comment: Jasvir pickering RN/ Performed By: #### 2 [id number] #### [facility] [address] [place] [address] Glucose [Mass/Vol] 179 mg/dL High 55-99 [facility] Comment on above: Result Comment: Jasvir MESA Performed By: #### 2 [id number] #### [facility] [address] [place] [address] ED Clinical Summaryon 2024 ED Clinical Summary ED Clinical Summary [address] [address] ED Clinical Summary Person Information Name: VASHTI MASSEY Rachel/[facility] Age: 69 Years : 1955 Sex: Male Language: Serbian PCP: ELEAZAR MAYORGA DO Marital Status: Single Visit Id: Visit Reason: Seizure; SEIZURE Speciality: Acuity: 2 Enc Type: Inpatient Med Service: Medical Arrival: 04/24/2025 20:07:12 Discharge: LOS: 000 05:33 Checkin: 04/24/2025 20:07:12 Checkout: 04/25/2025 01:40:21 Dispo Type: Admitted as IP to this [facility] EVENTS: Event Name Event Status Request [...] 00:23:16 Patient Care Request 04/25/2025 00:23:16 ADDRESS: [address] [place] [id number] PHYS DOC NOTES: MEDICAL INFORMATION: Prescriptions Given: [...] g/5.2 g (more content not included)... Normal [facility] ED Note-Physicianon 04-25-20 ED Note-Physician ED Note-Physician Basic Information Time Seen: Isai Mehta DO 04/24/2025 20:08 History of Present Illness 69-year-old male to the emergency department with concern for altered mental status/seizure. Patient is a resident at [facility]. He has been noted to have some falls over the last few days. He was seen at [facility] yesterday per EMS for a fall [...] No Known (more content not included)... Normal [facility] Comment on above: Result Comment: Elec tronically Signed By: Isai Mehta DO\.br\Date and Time Signed: 04/25/25 01:12 EDT ED Patient Education Noteon 04-25-2025 ED Patient Education Note ED Patient Education Note Normal [facility] ED Patient Summaryon 025 ED Patient Summary ED Patient Summary [place] [id number] Patient Discharge Instructions Person Information Name: VASHTI MASSEY Age: 69 Years Arrival Date: 04/24/2025 20:07:12 Discharge Diagnosis: Altered mental status Primary Care Physician: ELEAZAR MAYORGA DO Provider Information Primary Provider: Isai Mehta DO Advanced Tool Hardener:None The exam and treatment you received in the Emergency Department were for an urgent problem and are not intended as complete care. It is important that you follow up with a doctor, nurse practitioner, or physician???s family law legal assistant for ongoing care. If your symptoms [...] opioids can be used to help relieve jakpqoba-zw-vhabfu pain and are often prescribed following a [...] from the Food and Drug Administration (www.fda.gov/Drugs/Reso tanviForYou). ??? Visit www.cdc.gov/drugoverdos e to learn about the risks of opioids abuse and overdose. ??? If you believe you may be struggling with addiction, tell your health child care attendant and ask for guidance or call [facility]???S National Helpline at 5-082-348-VCRT. v Source: [place] Department of Health and Human Services/Center for Disease Control & (more content not included)... Normal [facility] HEMATOLOGYOrdered By: SYSTEM SYSTEM on 04-25-2025 Anisocytosis [...] Indra e Manageron 04-25-2025 Interdisciplinary Note - Combination Welder Apprentice Interdisciplinary Note - Combination Welder Apprentice SHEMAR met with patient at bedside. 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 CM made referral to [facility] and they can accept back. Patient states he has been there almost a year and they assist with all ADLs, meds and he uses [facility] for transport. 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 Daughter is Bhumika [phone]. CM reviewed IMM at bedside and patient gave verbal consent. Copy on chart and copy given to patient. Dr woodruff is attending and Neuro on consult. CM to follow. Normal [facility] Comment on above: Result Comment: Elec tronically Signed By: Debo Plummer I\.vishal\Date and Time Signed: 04/25/25 11:10 EDT Lactic Acidon 04-25-2025 Lactic Acid Lvl 1.0 mmol/L Normal 0.5-2.2 [facility] Comment on above: Order Comment: Order added by EKS Rule. (FT_LACTIC_ACID_REFLEX) Adds reflex Lactic Acid 4 hours after initial if result is greater than or equal to 2.0. Performed By: #### 2 [id number] #### [facility] [address] [place] [address] TSH With T4fr Reflexon 04-25 TSH Qn 1.70 m[IU]/L Normal 0.34-5.60 [facility] Comment on above: Performed By: #### 1 [id number] #### [facility] [address] [place] [id number] Vit B12on 04-25-2025 Cobalamin (Vitamin B12) [Mass/Vol] 374 pg/mL Normal 50-1500 [facility] Comment on above: Performed By: #### 2 [id number] #### [facility] [address] [place] [address] XR Chest Single Viewon 04-25 XR Chest [...] DO Transcribed by: LESTER Technologist: JUVENTINO Normal [facility] eGFRon 04-25-2025 eGFR 109 mL/min/1.73 m2 Normal >=59 [facility] Comment on above: Performed By: #### 1 [id number] #### [facility] [address] [place] [address] AMPICILLIN+SULBACTAM:SUSC:PT :ISOLATE:ORDQN:MICOrdered By: Kelin Mcclendon on 04-24-2025 Ampicillin+Sulbactam CAROLIN [Susc] >100,000 cfu/ml Providencia stuartii >100,000 cfu/ml Methicillin-Resistant Staphylococcus aureus MRSA MRSA called to Dr. Woodruff 04/28/2025 08:[address] [facility] Ampicillin+Sulbactam CAROLIN [Gaona sc]Ordered By: Kelin Mcclendon on 04-24-2025 Methicillin-Resistant Staphylococcus aureus MRSA Methicillin-Resistant Staphylococcus aureus MRSA [facility] [facility] CBC w/ Auto Diffon 5 Anisocytosis Ql (Bld) PRESENT Invalid Interpretation Code [facility] Comment on above: Performed By: #### 2 [id number] #### [facility] [address] [place] [address] Basophil Absolute 0.0 E9/L Normal 0.0-0.2 [facility] Comment on above: Performed By: #### 2 [id number] #### [facility] [address] [place] [address] Basophils/100 WBC (Bld) 1.1 % Normal 0.0-2.0 [facility] Comment on above: Performed By: #### 2 [id number] #### [facility] [address] [place] [address] Eos Absolute 0.1 E9/L Normal 0.0-0.5 [facility] Comment on above: Performed By: #### 2 [id number] #### [facility] [address] [place] [address] Eosinophils/100 WBC (Bld) 2.3 % Normal 0.0-8.0 [facility] Comment on above: Performed By: #### 2 [id number] #### [facility] [address] [place] [address] Erythrocyte distribution width (RBC) [Ratio] 20.4 % High 10.9-14.2 [facility] Comment on above: Performed By: #### 2 [id number] #### [facility] [address] [place] [address] Hematocrit (Bld) [Volume fraction] 34.9 % Low 37.7-49.0 [facility] Comment on above: Performed By: #### 2 [id number] #### [facility] [address] [place] [address] Hemoglobin (Bld) [Mass/Vol] 11.8 g/dL Low 13.5-17.5 [facility] Comment on above: Performed By: #### 2 [id number] #### [facility] [address] [place] [address] Lymph Absolute 1.2 E9/L Normal 1.0-4.0 [facility] Comment on above: Performed By: #### 2 [id number] #### [facility] [address] [place] [address] Lymphocytes/100 WBC (Bld) 30.2 % Normal 14.0-50.0 [facility] Comment on above: Performed By: #### 2 [id number] #### [facility] [address] [place] [address] MCH (RBC) [Entitic mass] 24.5 pg Low 27.0-34.0 [facility] Comment on above: Performed By: #### 2 [id number] #### [facility] [address] [place] [address] MCHC (RBC) [Mass/Vol] 33.8 g/dL Normal 31.4-36.0 [facility] Comment on above: Performed By: #### 2 [id number] #### [facility] [address] [place] [address] MCV (RBC) [Entitic vol] 72.4 fL Low 80.0-100.0 [facility] Comment on above: Performed By: #### 2 [id number] #### [facility] [address] [place] [address] Microcyte PRESENT Invalid Interpretation Code [facility] Comment on above: Performed By: #### 2 [id number] #### [facility] [address] [place] [address] [place] Absolute 0.2 E9/L Normal 0.2-1.0 [facility] Comment on above: Performed By: #### 2 667219 #### [facility] [address] [place] [address] Monocytes/100 WBC (Bld) 6.4 % Normal 4.0-14.0 [facility] Comment on above: Performed By: #### 2 243618 #### [facility] [address] [place] [address] Neutro Absolute 2.3 E9/L Normal 2.0-7.5 [facility] Comment on above: Performed By: #### 2 078411 #### [facility] [address] [place] [address] Neutro Auto 60.0 % Normal 36.0-75.0 [facility] Comment on above: Performed By: #### 2 751014 #### [facility] [address] [place] [address] Platelet 267.0 E9/L Normal 150.0-500. 0 [facility] Comment on above: Performed By: #### 2 587395 #### [facility] [address] [place] [address] Platelet mean volume (Bld) [Entitic vol] 6.7 fL Normal 6.4-10.8 [facility] Comment on above: Performed By: #### 2 [id number] #### [facility] [address] [place] [address] Poikilocytosis PRESENT Invalid Interpretation Code [facility] Comment on above: Performed By: #### 2 [id number] #### [facility] [address] [place] [address] RBC 4.8 E12/L Normal 4.3-5.9 [facility] Comment on above: Performed By: #### 2 [id number] #### [facility] [address] [place] [address] RBC morphology finding Nom (Bld) SEE MORPHOLOGY Invalid Interpretation Code [facility] Comment on above: Performed By: #### 2 [id number] #### [facility] [address] [place] [address] WBC 3.9 E9/L Low 4.0-11.0 [facility] Comment on above: Performed By: #### 2 628539 #### [facility] [address] [place] [address] CHEMISTRYOrdered By: SYSTEM SYSTEM on 04-24-2025 Albumin [...] Instructions For Use, Michael Raquel, May 2018) Urea nitrogen [Mass/Vol] 18 mg/dL Normal 5 - 21 mg/dL Remisol Chem Urea nitrogen/Creatinine [Mass ratio] 30 mg/mg High 10 - 20 Remisol Chem CMPon 04-24-2025 Albumin [Mass/Vol] 4.3 g/dL Normal 3.3-5.0 [facility] Comment on above: Performed By: #### 2 [id number] #### [facility] [address] [place] [address] Albumin/Globulin [Mass ratio] 2.0 {ratio} Normal 1.1-2.2 [facility] Comment on above: Performed By: #### 2 106934 #### [facility] [address] [place] [address] Alk Phos 77 Int._Unit/L Normal 21-98 [facility] Comment on above: Performed By: #### 2 055259 #### [facility] [address] [place] [address] ALT 11 Int._Unit/L Normal 6-46 [facility] Comment on above: Performed By: #### 2 591251 #### [facility] [address] [place] [address] Anion gap [Moles/Vol] 14 mmol/L Normal 6-16 [facility] Comment on above: Performed By: #### 2 840912 #### [facility] [address] [place] [address] AST 9 Int._Unit/L Normal 5-43 [facility] Comment on above: Performed By: #### 2 756204 #### [facility] [address] [place] [address] Bili Total 0.5 mg/dL Normal 0.0-1.1 [facility] Comment on above: Performed By: #### 2 153031 #### [facility] [address] [place] [address] BUN/Creat Ratio 30 No Units High 10-[address] [facility] Comment on above: Performed By: #### 2 [id number] #### [facility] [address] [place] [address] Calcium [Mass/Vol] 9.3 mg/dL Normal 8.9-11.1 [facility] Comment on above: Performed By: #### 2 187349 #### [facility] [address] [place] [address] Chloride [Moles/Vol] 96 mmol/L Low 101-111 [facility] Comment on above: Performed By: #### 2 724682 #### [facility] [address] [place] [address] CO2 [Moles/Vol] 27 mmol/L Normal 21-31 [facility] Comment on above: Performed By: #### 2 019545 #### [facility] [address] [place] [address] Creatinine [Mass/Vol] 0.6 mg/dL Normal 0.5-1.3 [facility] Comment on above: Performed By: #### 2 879927 #### [facility] [address] [place] [address] Globulin (S) [Mass/Vol] 2.2 g/dL Normal 1.4-4.0 [facility] Comment on above: Performed By: #### 2 760726 #### [facility] [address] [place] [address] Glucose [Mass/Vol] 183 mg/dL Normal 55-199 [facility] Comment on above: Performed By: #### 2 170348 #### [facility] [address] [place] [address] Potassium [Moles/Vol] 3.9 mmol/L Normal 3.5-5.3 [facility] Comment on above: Performed By: #### 2 642018 #### [facility] [address] [place] [address] Protein [Mass/Vol] 6.5 g/dL Normal 6.0-7.8 [facility] Comment on above: Performed By: #### 2 [id number] #### [facility] [address] [place] [address] Sodium [Moles/Vol] 133 mmol/L Low 135-145 [facility] Comment on above: Performed By: #### 2 975577 #### [facility] [address] [place] [address] Urea nitrogen [Mass/Vol] 18 mg/dL Normal 5-21 [facility] Comment on above: Performed By: #### 2 596679 #### [facility] [address] [place] [address] COAGULATIONOrdered By: Isaiah Drew on 04-24-2025 aPTT Coag (PPP) [Time] 32.9 s Normal 25.1 - 36.5 second(s) [facility] Comment on above: Interpretive Data: P arameter 15 days - 4 weeks 1 - [...] the same coagulation reagent and instrumentation as [facility]. Currently there are no coagulation studies available worldwide for children to 14 days, and no normal ranges. Heparin therapeutic range (represented by Anti-Factor Xa activity of 0.2 - 0.4 U/mL) corresponds to PTT of 56.6 - 109.0 sec. INR Coag (PPP) [Relative time] 1.09 {INR} Invalid Interpretation Code [facility] Comment on above: Interpretive Data: I NR results are specifically intended to assess patients stabilized on long-term Anticoagulation therapy suggested INR s Less Intensive Anticoagulation 2.0 3.0 Conventional Range 3.0 4.5 PT Coag (PPP) [Time] 12.2 s Normal 9.4 - 1 2.5 second(s) [facility] Comment on above: Interpretive Data: [...] the same coagulation reagent and instrumentation as [facility]. Currently there are no coagulation studies available [...] Lactic Acid Lvl 2.3 mmol/L High 0.5-2.2 [facility] Comment on above: Performed By: #### 2 [id number] #### [facility] [address] [place] [address] No Panel InformationOrdered By: [facility] MICROBIOLOGY on 04-24-2025 Blood Culture Charcoal No growth at 4 da ys. Final to follow at [address] [facility] Blood Culture Charcoal No growth at 4 da ys. Final to follow at [address] [facility] PT & PTTon 04-24-2025 INR Coag (PPP) [Relative time] 1.09 {INR} Invalid Interpretation Code [facility] Comment on above: Result Comment: INR results are specifically intended to assess patients stabilized on long-term Anticoagulation therapy suggested INR???s ???Less Intensive Anticoagulation??? 2.0 ??? 3.0 Conventional Range 3.0 ??? 4.5 Performed By: #### 1 [id number] #### [facility] [address] [place] [address] PT 12.2 second(s) Normal 9.4-12.5 [facility] Comment on above: Result Comment: 15 d [...] ranges were obtained from a study by matt Mccartney prepared from 1437 samples obtained at 7 different centers using the same coagulation reagent and instrumentation as [facility]. Currently there are no coagulation studies available worldwide for children to 14 days, and no normal ranges. Performed By: #### 1 [id number] #### [facility] [address] [place] [address] PTT 32.9 second(s) Normal 25.1-36.5 [facility] Comment on above: Result Comment: Para meter 15 days - 4 weeks 1 - 5 months 6 - 11 months 1 - 5 years 6 - 10 years 11 - 17 years PTT Mean: 35.4 (27.6-45.6) Mean: 33.5 (24.8-40.7) Mean: 32.4 (25.1-40.7) Mean: 31.6 (24.0-39.2) Mean: 31.6 (26.9-38.7) Mean: 31.0 (24.6-38.4) Pediatric Reference ranges were obtained from a study by matt Mccartney prepared from 1437 samples obtained at 7 different centers using the same coagulation reagent and instrumentation as [facility]. Currently there are no coagulation studies available worldwide for children to 14 days, and no normal ranges. Heparin therapeutic range (represented by Anti-Factor Xa activity of 0.2 - 0.4 U/mL) corresponds to PTT of 56.6 - 109.0 sec. Performed By: #### 1 [id number] #### [facility] [address] [place] [address] Pre-Arrival Noteon Pre-Arrival Note Pre-Arrival Note Pre-Arrival Summary Name: , [facility] Current Date: 04/24/2025 20:08:08 EDT Gender: Male Date of : Age: 70 Pre-Arrival Type: EMS ETA: 04/24/2025 20:22:00 EDT Primary Care Physician: Presenting Problem: seizure Pre-Arrival User: Ewa Catalan RN Referring Source: Location: PA Completion Date/Time: 04/24/2025 19:52:00 [facility] Emergency Department Pre-Hospital Report Form Vital Signs: Pre-Hospital Report: Treatment in Route: Response to Treatment: Misc. Issues: Normal [facility] Troponinon 04-24-2025 Troponin HS 5.40 pg/mL Low 15.90-38.4 0 [facility] Comment on above: Result Comment: The 95% CI (Confidence Interval) PPV (Positive Predictive Value) for myocardial infarction in females is 38 pg/mL, in males 51 pg/mL. The results should be used in conjunction with clinical conditions of myocardial infarction. (Access High Sensitivity Troponin I Instructions For Use, Imchael [place], May 2018) Performed By: #### 2 [id number] #### [facility] [address] [place] [address] UA with Cult Rflxon 04-24-20 25 Color (U) [place] Abnormal Yellow [facility] Comment on above: Result Comment: Micr oscopic readings are only performed on those samples that meet specific criteria set forth by [facility]. Performed By: #### 4 [id number] #### [facility] [address] [place] [address] Glucose (U) [Mass/Vol] Negative Normal Negative Fi [facility] Comment on above: Performed By: #### 4 [id number] #### [facility] [address] [place] [address] Ketones Ql (U) Negative Normal Negative [facility] Comment on above: Performed By: #### 4 [id number] #### [facility] [address] [place] [address] UA Blood 3+ mg/dL Abnormal Negative [facility] Comment on above: Performed By: #### 4 [id number] #### [facility] [address] [place] [address] UA Amorph Susannah Present Abnormal [facility] Comment on above: Performed By: #### 4 [id number] #### [facility] [address] [place] [address] UA Bacteria 1+ /HPF Abnormal Trace [facility] Comment on above: Performed By: #### 4 [id number] #### [facility] [address] [place] [address] UA Clarity Ex.Turbid Abnormal Clear [facility] Comment on above: Performed By: #### 4 [id number] #### [facility] [address] [place] [address] UA Leuk Est 500 Shelli/uL Abnormal Negative [facility] Comment on above: Performed By: #### 4 [id number] #### [facility] [address] [place] [address] UA Mucous Trace Normal Negative [facility] Comment on above: Performed By: #### 4 [id number] #### [facility] [address] [place] [address] UA Nitrite 1+ mg/dL Abnormal Negative [facility] Comment on above: Performed By: #### 4 [id number] #### [facility] [address] [place] [address] UA pH 7.5 Invalid Interpretation Code 5.0-9.0 [facility] Comment on above: Performed By: #### 4 [id number] #### [facility] [address] [place] [address] UA Protein Trace Abnormal Negative [facility] Comment on above: Performed By: #### 4 [id number] #### [facility] [address] [place] [address] UA RBC >75 Abnormal 0-3 [facility] Comment on above: Performed By: #### 4 [id number] #### [facility] [address] [place] [address] UA Spec Grav 1.014 Invalid Interpretation Code 1.005-1.03 0 [facility] Comment on above: Performed By: #### 4 [id number] #### [facility] [address] [place] [address] UA Squam Epithelial 0-2 Invalid Interpretation Code [facility] Comment on above: Performed By: #### 4 [id number] #### [facility] [address] [place] [address] UA Urobilinogen Negative Normal Negative [facility] Comment on above: Performed By: #### 4 [id number] #### [facility] [address] [place] [address] UA WBC 31-75 Abnormal 0-5 [facility] Comment on above: Performed By: #### 4 [id number] #### [facility] [address] [place] [address] UA WBC Clump 4-10 Abnormal [facility] Comment on above: Performed By: #### 4 [id number] #### [facility] [address] [place] [address] Urobilinogen (U) [Mass/Vol] Negative Normal Negative [facility] Comment on above: Performed By: #### 4 [id number] #### [facility] [address] [place] [address] UA Spec Desc Catheter Normal [facility] Comment on above: Performed By: #### 4 [id number] #### [facility] [address] [place] [address] URINALYSISOrdered By: SYSTEM SYSTEM on 04-24-2025 Bacteria Auto Ql (U) 1+ /HPF Invalid Interpretation Code Trace/HPF [facility] UA Auto SS Bilirubin Ql (U) Negative Normal Negativemg /dL [facility] UA Auto SS Clarity (U) Ex.Turbid *ABN* (04/24/25 9:08 PM) Invalid Interpretation Code Clear [facility] UA Auto SS Color (U) [place] 1 *ABN* (04/24/25 9:08 PM) Invalid Interpretation Code Yellow [facility] UA Auto SS Comment on above: Interpretive Data: M icroscopic readings are only performed on those samples that meet specific criteria set forth by [facility]. Crystals.amorphous Computer assisted Ql (U) Present graded/HPF Invalid Interpretation Code [facility] UA Auto SS Epithelial cells.squamous Auto (Urine sed) [#/Area] 0-2 graded/HPF Invalid Interpretation Code [facility] UA Auto SS Glucose Ql (U) Negative Normal Negativemg /dL [facility] UA Auto SS Hemoglobin Auto test strip [...] PM) Invalid Interpretation Code 5.0 - 9.0 [facility] UA Auto SS Protein Ql (U) Trace mg/dL Invalid Interpretation Code Negativemg /dL [facility] UA Auto SS RBC Ql (U) >75 graded/HPF Invalid Interpretation Code 0-3graded/ HPF [facility] UA Auto SS Specific gravity (U) [Rel density] 1.014 *NA* (04/24/25 9:08 PM) Invalid Interpretation Code 1.005 - 1.030 [facility] UA Auto SS Urobilinogen (U) [Mass/Vol] Negative Normal Negativemg /dL [facility] UA Auto SS WBC Auto (Urine sed) [#/Area] 31-75 graded/HPF Invalid Interpretation Code 0-5graded/ HPF [facility] UA Auto SS URINALYSISOrdered By: Isai Mehta on 06-29-2025 UA Spec Desc Catheter (04/24/25 9:08 PM) Normal [facility] UA Auto SS eGFRon 04-24-2025 eGFR 103 mL/min/1.73 m2 Normal >=[address] [facility] Comment on above: Performed By: #### 1 [id number] #### [facility] [address] [place] [address] Ambulatory Visit Summaryon 0 04-15-2025 Ambulatory Visit Summary Ambulatory Visit Summary VASHTI MASSEY :1955 Visit Date:04/15/2025 Ambulatory Visit Instructions Your [...] JAROCHO POST MD Where: [facility] [place] [address] [address]- You Need to Schedule the Following Appointments Follow Up with JAROCHO POST MD, URL When: Where: Medications What How Much When [...] if questio (more content not included)... Normal [facility] Urology Office/Clinic Noteon 04-15-2025 Urology Office/Clinic Note [...] nourished, well developed male. Assessment/Plan Resides at [facility]. Pt accompanied by daughter today. Portions of this record may have been created with voice recognition artificial intelligence software, specifically [employer], [employer] and or [employer]. Substitutions may have occurred due to the inherent limitations of voice recognition and artificial intelligence software. 1. Gross hematuria (R31.0: Gross hematuria) CT Abdomen 10/06/24 - Cyr catheter in good position. Small clot burden in bladder. ~Renal function 10/06/24 ~Cr 0.68. eGFR >[address] [facility] ER 10/06/24 due to gross hematuria and clot retention. CT Abdomen 10/06/24 - Cyr catheter in good position. Small clot burden in bladder. Renal function 10/06/24 ~Cr 0.68. eGFR >60 Dr. Pereira consulted 10/08/24 ~has had two admissions over the past couple weeks for gross hematuria with clot retention. He was discharged from [facility] 1 day prior to admission to [facility]. Has not seen a urologist as an outpatient. S/p cysto, BL RPG, bladder fulguration, clot evacuation 10/06/24 ~neg for b.t. Grade 3 trabeculation. 20 Fr three-way Cyr catheter was placed. Urology consult note 10/10/24 Dr. Pereira ~hgb slightly improved over the past 2 days. Continue Finasteride 5mg qd and Cyr catheter upon discharge. Exchange Cyr [id number]. MRI of kidney to further eval complex cyst. Urology consult note 10/12/24 Dr. Portillo due to pt being concerned about why he was at [facility] vs [facility]. Dr. Portillo agreed with Dr. Pereira's plan. F/up as scheduled with urologist in the outpatient setting. Gross hematuria likely secondary to enlarged prostate. [facility] ER 10/28/24 due to gross hematuria/clot retention [...] catheter bag. No leaking around the catheter. group home has been changing his catheter. Pt states he is no longer having diarrhea which went on for weeks. Discussed TOV however may result in functional incontinence and pressure ulcers if long term staff does not take pt to void [...] left complex renal cyst. 5. 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 Normal [facility] Comment on above: Result Comment: Elec tronically Signed By: SEJAL TOWNSEND, JAROCHO\.br\Date and Time Signed: 04/15/25 11:23 EDT\.br\Electronically Co-Signed By: Simin Covarrubias\.vishal\Date and Time Co-Signed: 04/15/25 10:28 EDT Reminderson 03-17-2025 Reminders Reminders From: Majo Billingsley To: [facility] - Administrative; Sent: 01/07/2025 11:16:49 EDT Show up: 02/28/2025 11:16:00 EDT Subject: Ambulatory Reminder Due Date/Time: 04/15/2025 11:16:00 EDT Reminder/Recall SCHEDULE IN 3/ MO W/ DR BHAKTA Patient is scheduled for April 15, 2025 with SUZI/aye Beltrán [facility] Office Visiton 01-21-2025 Follow-up visit [id number] Vashti Massey 1955 M Date Provider Department Center 01/21/2025 TIMOTHY LONGORIA GRACIA [facility] Family History Problem Relation Age of Onset No Known Problems Mother No Known Problems Father Heart attack Paternal Grandmother Family Status - Relation Status Age at Mother Father Paternal Grandmother Level of Service:30642 CO OFFICE/OUTPATIENT ESTABLISHED MOD MDM 30 MIN Normal [facility] Ambulatory Visit Summaryon 0 01-07-2025 Ambulatory Visit Summary Ambulatory Visit Summary VASHTI MASSEY :1955 Visit Date:10/12/2024 Ambulatory Visit Instructions Your Care Team Primary Care Physician - ELEAZAR MAYORGA DO This Is Your Medications List [facility] Prescription (METOPROL SUC 50MG ER TAB) acetaminophen [...] choosing us for your care. Normal [facility] Urology Office/Clinic Noteon 01-07-2025 Urology Office/Clinic [...] ~Cr 0.68. eGFR >[address] [facility] ER 10/06/24 due to gross hematuria and clot retention. CT Abdomen 10/06/24 - Cyr catheter in good position. Small clot burden in bladder. Renal function 10/06/24 ~Cr 0.68. eGFR >60 Dr. Pereira consulted 10/08/24 ~has had two admissions over the past couple weeks for gross hematuria with clot retention. He was discharged from [facility] in [place] 1 day prior to admission to [facility]. Has not seen a urologist as an outpatient. S/p cysto, BL RPG, bladder fulguration, clot evacuation 10/06/24 ~neg for b.t. Grade 3 trabeculation. 20 Fr three-way Cyr catheter was placed. Urology consult note 10/10/24 Dr. Pereira ~hgb slightly improved over the past 2 days. Continue Finasteride 5mg qd and Cyr catheter upon discharge. Exchange Cyr [id number]. MRI of kidney to further eval complex cyst. Urology consult note 10/12/24 Dr. Portillo due to pt being concerned about why he was at [facility] vs [facility]. Dr. Portillo agreed with Dr. Pereira's plan. F/up as scheduled with urologist in the outpatient setting. Gross hematuria likely secondary to enlarged prostate. [facility] ER 10/28/24 due to gross hematuria/clot retention [...] colonization from Cyr catheter. 5. 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 Left-sided weakness. On Brilinta. Elevated risk fo (more content not included)... Normal [facility] Comment on above: Result Comment: Elec tronically Signed By: JAROCHO POST MD\.br\Date and Time Signed: 01/07/25 10:58 EDT\.br\Electronically Co-Signed By: Milagro BurroughsDate and Time Co-Signed: 01/07/25 10:45 EDT MRI CARD MORPH FUNC WO/W IVC ONon 12-28-2024 MRI CARD MORPH FUNC WO/W IVCON * * *Final Report* * * DATE OF EXAM: Dec 28 2024 10:43AM HCM 0703 - MRI CARD MORPH FUNC WO/W IVCON / PROCEDURE REASON: CARDIOMYOPATHY, HYPERTROPHIC * * * * Physician Interpretation * * * * RESULT: Cardiac MRI Report: [facility] Date of service: 12/28/2024 8:43:10 AM Linked orders:[id number] CARD MORPH FUNC WO/W IVCON;[id number] CARDIAC VELOCITY FLOW MAP. Ordering physician: DEBBIE [...] 36.60 15.09 +------+ +--- ---+ +-----+ -------+-----+ Wallace 1084.11 84.09 434.85 47.75 50.39 10.28 +------+ [...] Volume: 88 (more content not included)... Normal [facility] MRI CARDIAC VELOCITY FLOW MA [place] 12-28-2024 MRI CARDIAC VELOCITY FLOW MAP * * *Final Report* * * DATE OF EXAM: Dec 28 2024 10:43AM HCM 0704 - MRI CARDIAC VELOCITY FLOW MAP / PROCEDURE REASON: CARDIOMYOPATHY, HYPERTROPHIC * * * * Physician Interpretation * * * * RESULT: Cardiac MRI Report: [facility] Date of service: 12/28/2024 8:43:10 AM Linked orders:[id number] CARD MORPH FUNC WO/W IVCON;[id number] CARDIAC VELOCITY FLOW MAP. Ordering physician: DEBBIE [...] 36.60 15.09 +------+ +--- ---+ +-----+ -------+-----+ Wallace 1084.11 84.09 434.85 47.75 50.39 10.28 +------+ [...] Volume: 88 m (more content not included)... [facility] Provider Letteron 12-14-2024 Provider Letter Provider Letter December 14, 2024 VASHTI MASSEY [address] [place] [id number] : 1955 Dear Vashti , We have [...] attention to this matter. Sincerely, [facility] [address] [place] [address] [facility] Office Visiton 12-08-2024 Follow-up visit [id number] Vashti Massey 1955 M Date Provider Department Center 12/08/2024 3848-DEBBIE ZUÑIGA GRACIA [facility] Family History Problem Relation Age of Onset No Known Problems Mother No Known Problems Father Heart attack Paternal Grandmother Family Status - Relation Status Age at Mother Father Paternal Grandmother Level of Service:95524 CO OFFICE/OUTPATIENT ESTABLISHED LOW MDM 20 MIN Normal [facility] Ambulatory Visit Summaryon 0 11-08-2024 Ambulatory Visit Summary Ambulatory Visit Summary VASHTI MASSEY :1955 Visit Date:11/08/2024 Ambulatory Visit Instructions Your [...] JAROCHO POST MD Where: [facility] [address] [place] [address]- You Need to Schedule the Following Appointments Follow Up with SEJAL TOWNSEND, [place] When: Comments: Appointment has already been scheduled [...] e-mail askin (more content not included)... Normal [facility] Urology Office/Clinic Noteon 11-08-2024 Urology Office/Clinic Note Urology Office/Clinic Note HPI Staff 69 year old male follow up to [facility] 10/28/24 due to gross hematuria/clot retention seen [...] yo male pt here today for a [facility] f/u from 10/28/24. Hx of T2DM, HTN, smoker, CVA on Brilinta, and chronic indwelling Cyr catheter, severe UR. Wheelchair bound. Resides at [facility], plan is to be released at home once he recovers. Pt accompanied by daughter today. Portions of this record may have been created with voice recognition artificial intelligence software, specifically [employer], [employer] and or [employer]. Substitutions may have occurred due to the inherent limitations of voice recognition and artificial intelligence software. 1. Gross hematuria (R31.0: Gross hematuria) Cyr was placed after pt had a stroke. Likely placed for convenience. Pt presented to [facility] ER 10/06/24 due to gross hematuria and clot retention. CT Abdomen 10/06/24 - Cyr catheter in good position. Small clot burden in bladder. Renal function 10/06/24 ~Cr 0.68. eGFR >60 Dr. Pereira consulted 10/08/24 ~has had two admissions over the past couple weeks for gross hematuria with clot retention. He was discharged from [facility] in [place] 1 day prior to admission to [facility]. Has not seen a urologist as an outpatient. S/p cysto, BL RPG, bladder fulguration, clot evacuation 10/06/24 ~neg for b.t. Grade 3 trabeculation. 20 Fr three-way Cyr catheter was placed. Urology consult note 10/10/24 Dr. Pereira ~hgb slightly improved over the past 2 days. Continue Finasteride 5mg qd and Cyr catheter upon discharge. Exchange Cyr [id number]. MRI of kidney to further eval complex cyst. Urology consult note 10/12/24 Dr. Portillo due to pt being concerned about why he was at [facility] vs [facility]. Dr. Portillo agreed with Dr. Pereira's plan. F/up as scheduled with urologist in the outpatient setting. Gross hematuria likely secondary to enlarged prostate. [facility] ER 10/28/24 due to gross hematuria/clot retention [...] further at (more content not included)... Normal [facility] Comment on above: Result Comment: Elec tronically Signed By: JAROCHO POST MD\.br\Date and Time Signed: 11/08/24 10:24 EST\.br\Electronically Co-Signed By: Linh Novoa\.br\Date and Time Co-Signed: 11/08/24 10:06 EST Globulin Calc (S) [Mass/Vol] on 10-28-2024 Globulin (S) [Mass/Vol] Serum globulin measurement by calculation (mass/volume) [facility] Laboratory - Chemistry and C hemistry - challengeon 10-28-2024 Bilirubin Ql (U) Negative NEGATIVE [facility] Glucose (U) [Mass/Vol] Negative NEGATIVE [facility] Ketones Ql (U) Negative NEGATIVE [facility] pH (U) 6.0 [pH] 5.0-9.0 [facility] Specific gravity (U) [Rel density] 1.010 1.005-1.02 5 [facility] Urobilinogen Qn (U) 0.2 {Marley'U}/dL 0.2-1.0 [facility] Albumin [Mass/Vol] 3.6 g/dL 3.4-5.0 [facility] ALP [Catalytic activity/Vol] 68 U/L 46-116 [facility] ALT [Catalytic activity/Vol] 21 U/L 16-63 [facility] Amylase [Catalytic activity/Vol] 25 U/L 25-115 [facility] AST [Catalytic activity/Vol] 15 U/L 15-37 [facility] Bilirubin [Mass/Vol] 0.4 mg/dL 0.2-1.0 [facility] Bilirubin.direct [Mass/Vol] 0.1 mg/dL 0.0-0.2 [facility] Lipase [Catalytic activity/Vol] 35.0 U/L 16.0-77.0 [facility] Protein [Mass/Vol] 6.3 g/dL Low 6.4-8.2 [facility] Laboratory - Specimen inform ationon 10-28-2024 Appearance (U) SL CLOUDY CLEAR [facility] Color (U) LT. YELLOW YELLOW [facility] Laboratory - Urinalysison Leukocyte esterase Test strip Ql (U) TRACE Abnormal NEGATIVE [facility] Nitrite Ql (U) Negative NEGATIVE [facility] Protein Ql (U) Negative NEG/TRACE [facility] No Panel Informationon 10-28 Urine Occult Blood LARGE Abnormal NEGATIVE [facility] Serum or plasma albumin/glob ulin mass ratioon 10-28-2024 Albumin/Globulin [Mass ratio] Serum or plasma albumin/globulin mass ratio [facility] Urine Cultureon 10-28-2024 Bacteria identified Cx Nom (U) ORGANISM: Klebsiella pneumoniae (ESBL) (O:KLEPNEESBL) [place] Count <10,000 ORGANISM: Pseudomonas aeruginosa (O:PSEAER) [place] Count <10,000 Aerobic CAROLIN Charge (NMIC56) -- [...] RESISTANT TO ALL B-LACTAM DRUGS. PERFORMED BY: [place] [id number] PATHOLOGIST SECURITY VEHICLE PATROL OFFICER VENUS NORIEGA M.D. Normal [facility] Comment on above: Performed By: #### C K, LIPASE, CBC, BMP, BNP, HEPATIC, HS TROP #### [facility] [address] Ambulatory Visit Summaryon 1 Ambulatory Visit [...] JAROCHO POST MD Where: [facility] [place] [address] [place] [address]- You Need to Schedule the Following Appointments Follow Up with SEJAL TOWNSEND, [place] When: Where: Medications What How Much When [...] your gaona (more content not included)... Normal [facility] Urology Office/Clinic Noteon 10-25-2024 Urology Office/Clinic Note Urology Office/Clinic Note Chief Complaint new patient HPI Staff 69 year old male new patient here for follow up to [facility] consult by Dr. Pereira due to gross [...] our office here for f/up to recent [facility] admission. Hx of T2DM, HTN, smoker, CVA on Brilinta, and chronic indwelling Cyr catheter, severe UR. Wheelchair bound. Resides at [facility], plan is to be released at home once he recovers. Pt accompanied by daughter today. Portions of this record may have been created with voice recognition artificial intelligence software, specifically [employer], [employer] and or [employer]. Substitutions may have occurred due to the inherent limitations of voice recognition and artificial intelligence software. 1. Gross hematuria (R31.0: Gross hematuria) Cyr was placed after pt had a stroke. Likely placed for convenience. Pt presented to [facility] ER 10/06/24 due to gross hematuria and clot retention. CT Abdomen 10/06/24 - Cyr catheter in good position. Small clot burden in bladder. Renal function 10/06/24 ~Cr 0.68. eGFR >60 Dr. Pereira consulted 10/08/24 ~has had two admissions over the past couple weeks for gross hematuria with clot retention. He was discharged from [facility] 1 day prior to admission to [facility]. Has not seen a urologist as an outpatient. S/p cysto, BL RPG, bladder fulguration, clot evacuation 10/06/24 ~neg for b.t. Grade 3 trabeculation. 20 Fr three-way Cyr catheter was placed. Urology consult note 10/10/24 Dr. Pereira ~hgb slightly improved over the past 2 days. Continue Finasteride 5mg qd and Cyr catheter upon discharge. Exchange Cyr [id number]. MRI of kidney to further eval complex cyst. Urology consult note 10/12/24 Dr. Portillo due to pt being concerned about why he was at [facility] vs [facility]. Dr. Portillo agreed with Dr. Pereira's plan. [...] 5. An (more content not included)... Normal [facility] Comment on above: Result Comment: Elec tronically Signed By: JAROCHO POST MD\.br\Date and Time Signed: 10/25/24 11:39 EST\.br\Electronically Co-Signed By: Simin Covarrubias\.br\Date and Time Co-Signed: 10/25/24 11:28 EST Glucose Glucometer (BldC) [M ass/Vol]Ordered By: Bryson Chavez on 10-12-2024 Glucose [Mass/Vol] Capillary blood gluc ose measurement by glucometer (mass/volume) [facility] Comment on above: Random Glucose Refer ence Range is dependent on time and content of last meal. Glucose of more than 200 mg/dL in a nonstressed, ambulatory subject supports the diagnosis of Diabetes Mellitus. Glucose Poct Glucometerson 1 12-13-2023 Glucose [Mass/Vol] 155 mg/dL Normal [facility] Comment on above: Result Comment: [place] Glucose Reference Range is dependent on time and content of last meal. Glucose of more than 200 mg/dL in a nonstressed, ambulatory subject supports the diagnosis of Diabetes Mellitus. PERFORMED BY: [place] [address] PATHOLOGIST SECURITY VEHICLE PATROL OFFICER VENUS NORIEGA M.D. Performed By: #### C K, LIPASE, CBC, BMP, BNP, HEPATIC, HS TROP #### [address] Commemt1 Glu2: Cleaned Meter Normal [facility] Comment on above: Result Comment: PERF ORMED BY: [address] [place] [address] PATHOLOGIST SECURITY VEHICLE PATROL OFFICER VENUS NORIEGA M.D. Performed By: #### C K, LIPASE, CBC, BMP, BNP, HEPATIC, HS TROP #### [address] Glucose [Mass/Vol] 230 mg/dL Normal [facility] Comment on above: Result Comment: [place] om Glucose Reference Range is dependent on time and content of last meal. Glucose of more than 200 mg/dL in a nonstressed, ambulatory subject supports the diagnosis of Diabetes Mellitus. Performed By: #### C K, LIPASE, CBC, BMP, BNP, HEPATIC, HS TROP #### [facility] [address] Commemt1 Glu2: Cleaned Meter Normal [facility] Comment on above: Result Comment: PERF ORMED BY: [facility] [address] [place] [address] PATHOLOGIST SECURITY VEHICLE PATROL OFFICER VENUS NORIEGA M.D. Performed By: #### G LULS #### Point of Care testing , Glucose [Mass/Vol] 138 mg/dL Normal [facility] Comment on above: Result Comment: [place] Glucose Reference Range is dependent on time and content of last meal. Glucose of more than 200 mg/dL in a nonstressed, ambulatory subject supports the diagnosis of Diabetes Mellitus. Performed By: #### G LULS #### Point of Care testing , No Panel InformationOrdered By: Bryson Chavez on 10-12-2024 Bedside Glucose Comment Glu2: cleaned meter [facility] Alanine aminotransferase [En zymatic activity/volume] in Serum or PlasmaOrdered By: Abiola Benson on 10-11-2024 ALT [Catalytic activity/Vol] Alanine aminotransferase [Enzymatic activity/volume] in Serum or Plasma 7 [facility] Albumin [Mass/volume] in Ser um or Plasma by Bromocresol green (BCG) dye binding methoOrdered By: Abiola Benson on 10-11-2024 Albumin BCG dye [Mass/Vol] Albumin [Mass/volume] in Serum or Plasma by Bromocresol green (BCG) dye binding metho 3.5-5.7 [facility] Alkaline phosphatase [Enzyma tic activity/volume] in Serum or PlasmaOrdered By: Abiola Benson on 10-11-2024 ALP [Catalytic activity/Vol] Alkaline phosphatase [Enzymatic activity/volume] in Serum or Plasma 34-104 [facility] Aspartate aminotransferase [ Enzymatic activity/volume] in Serum or PlasmaOrdered By: Abiola Benson on 10-11-2024 AST [Catalytic activity/Vol] Aspartate aminotransferase [Enzymatic activity/volume] in Serum or Plasma Low 13-39 [facility] Basophils Auto (Bld) [#/Vol] Ordered By: Abiola Benson on 10-11-2024 Basophils (Bld) [#/Vol] Automated basophil count 0.0-0.2 [facility] Basophils/100 WBC Auto (Bld) Ordered By: Abiola Benson on 10-11-2024 Basophils/100 WBC (Bld) Automated basophil % . [facility] Bilirubin.total [Mass/volume ] in Serum or PlasmaOrdered By: Abiola Benson on 10-11-2024 Bilirubin [Mass/Vol] Bilirubin.total [Mass/volume] in Serum or Plasma 0.3-1.0 [facility] Calcium [Mass/volume] in Ser um or PlasmaOrdered By: Abiola Benson on 10-11-2024 Calcium [Mass/Vol] Calcium [Mass/volume ] in Serum or Plasma 8.6-10.3 [facility] Carbon dioxide, total [Moles /volume] in Serum or PlasmaOrdered By: Abiola Benson on 10-11-2024 CO2 [Moles/Vol] Carbon dioxide, tota l [Moles/volume] in Serum or Plasma 21.0-31.0 [facility] Chloride [Moles/volume] in S chiara or PlasmaOrdered By: Abiola Benson on 10-11-2024 Chloride [Moles/Vol] Chloride [Moles/vol ume] in Serum or Plasma 98-107 [facility] Complete Blood Count Auto Di ffon 10-11-2024 Basophils (Bld) [#/Vol] 0.1 10*3/uL Normal 0.0-0.2 [facility] Comment on above: Result Comment: PERF ORMED BY: [facility] [address] [place] [id number] PATHOLOGIST SECURITY VEHICLE PATROL OFFICER VENUS NORIEGA M.D. Performed By: #### C K, LIPASE, CBC, BMP, BNP, HEPATIC, HS TROP #### [facility] [address] Basophils/100 WBC (Bld) 1.7 % Normal . [facility] Comment on above: Performed By: #### C K, LIPASE, CBC, BMP, BNP, HEPATIC, HS TROP #### [address] Eosinophils (Bld) [#/Vol] 0.2 10*3/uL Normal 0.0-0.45 [facility] Comment on above: Performed By: #### C K, LIPASE, CBC, BMP, BNP, HEPATIC, HS TROP #### [address] Eosinophils/100 WBC (Bld) 5.4 % Normal . [facility] Comment on above: Performed By: #### C K, LIPASE, CBC, BMP, BNP, HEPATIC, HS TROP #### [address] Erythrocyte distribution width (RBC) [Ratio] 17.3 % High 12.0-14.8 [facility] Comment on above: Performed By: #### C K, LIPASE, CBC, BMP, BNP, HEPATIC, HS TROP #### [address] Hematocrit (Bld) [Volume fraction] 26.5 % Low 38.8-50.0 [facility] Comment on above: Performed By: #### C K, LIPASE, CBC, BMP, BNP, HEPATIC, HS TROP #### [address] Hemoglobin (Bld) [Mass/Vol] 9.3 g/dL Low 13.0-17.0 [facility] Comment on above: Performed By: #### C K, LIPASE, CBC, BMP, BNP, HEPATIC, HS TROP #### [address] Lymphocytes (Bld) [#/Vol] 1.5 10*3/uL Normal 1.00-4.8 [facility] Comment on above: Performed By: #### C K, LIPASE, CBC, BMP, BNP, HEPATIC, HS TROP #### [place] [address] [place] Lymphocytes/100 WBC (Bld) 43.4 % Normal . [facility] Comment on above: Performed By: #### C K, LIPASE, CBC, BMP, BNP, HEPATIC, HS TROP #### [address] MCH (RBC) [Entitic mass] 28.4 pg Normal 27.5-35.2 [facility] Comment on above: Performed By: #### C K, LIPASE, CBC, BMP, BNP, HEPATIC, HS TROP #### [address] MCV (RBC) [Entitic vol] 81.2 fL Low 83.5-101 [facility] Comment on above: Performed By: #### C K, LIPASE, CBC, BMP, BNP, HEPATIC, HS TROP #### [address] Mean Corpuscular HGB Conc 35.0 g/dL Normal 32.5-35.6 [facility] Comment on above: Performed By: #### C K, LIPASE, CBC, BMP, BNP, HEPATIC, HS TROP #### [address] Monocytes (Bld) [#/Vol] 0.3 10*3/uL Normal 0.0-0.8 [facility] Comment on above: Performed By: #### C K, LIPASE, CBC, BMP, BNP, HEPATIC, HS TROP #### [address] Monocytes/100 WBC (Bld) 8.5 % Normal . [facility] Comment on above: Performed By: #### C K, LIPASE, CBC, BMP, BNP, HEPATIC, HS TROP #### [address] Neutrophils (Bld) [#/Vol] 1.4 10*3/uL Low 1.8-7.7 [facility] Comment on above: Performed By: #### C K, LIPASE, CBC, BMP, BNP, HEPATIC, HS TROP #### [address] [address] [place] Neutrophils/100 WBC (Bld) 41.0 % Normal . [facility] Comment on above: Performed By: #### C K, LIPASE, CBC, BMP, BNP, HEPATIC, HS TROP #### [address] NRBC% 0.1 /100{WBC} Normal 0-0.5 [facility] Comment on above: Performed By: #### C K, LIPASE, CBC, BMP, BNP, HEPATIC, HS TROP #### [address] Platelet mean volume (Bld) [Entitic vol] 7.1 fL Normal 6.6-10.1 [facility] Comment on above: Performed By: #### C K, LIPASE, CBC, BMP, BNP, HEPATIC, HS TROP #### [address] Platelets (Bld) [#/Vol] 293 10*3/uL Normal 150-450 [facility] Comment on above: Performed By: #### C K, LIPASE, CBC, BMP, BNP, HEPATIC, HS TROP #### [address] RBC (Bld) [#/Vol] 3.26 10*6/uL Low 3.90-5.60 [facility] Comment on above: Performed By: #### C K, LIPASE, CBC, BMP, BNP, HEPATIC, HS TROP #### [address] WBC (Bld) [#/Vol] 3.5 10*3/uL Low 4.1-10.5 [facility] Comment on above: Performed By: #### C K, LIPASE, CBC, BMP, BNP, HEPATIC, HS TROP #### [address] Comprehensive Metabolic Pane delonte 10-11-2024 Albumin [Mass/Vol] 3.7 g/dL Normal 3.5-5.7 [facility] Comment on above: Performed By: #### C K, LIPASE, CBC, BMP, BNP, HEPATIC, HS TROP #### [address] Albumin/Globulin [Mass ratio] 1.5 {ratio} Normal [facility] Comment on above: Performed By: #### C K, LIPASE, CBC, BMP, BNP, HEPATIC, HS TROP #### [address] ALP [Catalytic activity/Vol] 67 U/L Normal 34-104 [facility] Comment on above: Performed By: #### C K, LIPASE, CBC, BMP, BNP, HEPATIC, HS TROP #### [address] ALT [Catalytic activity/Vol] 9 U/L Normal 7-52 [facility] Comment on above: Performed By: #### C K, LIPASE, CBC, BMP, BNP, HEPATIC, HS TROP #### [address] Anion gap [Moles/Vol] 9.9 mmol/L Normal 6.0-15.0 [facility] Comment on above: Performed By: #### C K, LIPASE, CBC, BMP, BNP, HEPATIC, HS TROP #### [address] AST [Catalytic activity/Vol] 8 U/L Low 13-39 [facility] Comment on above: Performed By: #### C K, LIPASE, CBC, BMP, BNP, HEPATIC, HS TROP #### [address] Bilirubin [Mass/Vol] 0.4 mg/dL Normal 0.3-1.0 [facility] Comment on above: Performed By: #### C K, LIPASE, CBC, BMP, BNP, HEPATIC, HS TROP #### [address] Calcium [Mass/Vol] 8.9 mg/dL Normal 8.6-10.3 [facility] Comment on above: Performed By: #### C K, LIPASE, CBC, BMP, BNP, HEPATIC, HS TROP #### [address] Chloride [Moles/Vol] 102 mmol/L Normal 98-107 [facility] Comment on above: Performed By: #### C K, LIPASE, CBC, BMP, BNP, HEPATIC, HS TROP #### [address] CO2 [Moles/Vol] 28.3 mmol/L Normal 21.0-31.0 [facility] Comment on above: Performed By: #### C K, LIPASE, CBC, BMP, BNP, HEPATIC, HS TROP #### [address] Creatinine [Mass/Vol] 0.54 mg/dL Low 0.70-1.30 [facility] Comment on above: Performed By: #### C K, LIPASE, CBC, BMP, BNP, HEPATIC, HS TROP #### [address] Creatinine Clr Calc Pharmacy 95.93 Normal [facility] Comment on above: Performed By: #### C K, LIPASE, CBC, BMP, BNP, HEPATIC, HS TROP #### [address] GFR/1.73 sq M.predicted MDRD (S/P/Bld) [Vol rate/Area] mL/min/{1.73_m2} Normal [facility] Comment on above: Performed By: #### C K, LIPASE, CBC, BMP, BNP, HEPATIC, HS TROP #### [address] Globulin (S) [Mass/Vol] 2.4 g/dL Normal [facility] Comment on above: Performed By: #### C K, LIPASE, CBC, BMP, BNP, HEPATIC, HS TROP #### [address] Glucose [Mass/Vol] 123 mg/dL High 70-100 [facility] Comment on above: Result Comment: [facility] Glucose Reference Range is dependent on time and content of last meal. Glucose of more than 200 mg/dL in a nonstressed, ambulatory subject supports the diagnosis of Diabetes Mellitus. ADA recommended reference range Performed By: #### C K, LIPASE, CBC, BMP, BNP, HEPATIC, HS TROP #### [address] Potassium [Moles/Vol] 4.2 mmol/L Normal 3.5-5.1 [facility] Comment on above: Performed By: #### C K, LIPASE, CBC, BMP, BNP, HEPATIC, HS TROP #### [address] Protein [Mass/Vol] 6.1 g/dL Low 6.4-8.9 [facility] Comment on above: Performed By: #### C K, LIPASE, CBC, BMP, BNP, HEPATIC, HS TROP #### [address] Sodium [Moles/Vol] 136 mmol/L Normal 136-145 [facility] Comment on above: Performed By: #### C K, LIPASE, CBC, BMP, BNP, HEPATIC, HS TROP #### [address] Urea nitrogen [Mass/Vol] 11 mg/dL Normal 7-25 [facility] Comment on above: Performed By: #### C K, LIPASE, CBC, BMP, BNP, HEPATIC, HS TROP #### [address] Creatinine [Mass/volume] in Serum or PlasmaOrdered By: Abiola Benson on 10-11-2024 Creatinine [Mass/Vol] Creatinine [Mass/volume] in Serum or Plasma Low 0.70-1.30 [facility] [facility] Eosinophils Auto (Bld) [#/Vo l]Ordered By: Abiola Benson on 10-11-2024 Eosinophils (Bld) [#/Vol] Automated eosinophil count 0.0-0.45 [facility] Eosinophils/100 WBC Auto (Bl d)Ordered By: Abiola Benson on 10-11-2024 Eosinophils/100 WBC (Bld) Automated eosinophil % . [facility] Erythrocyte distribution wid th Auto (RBC) [Ratio]Ordered By: Abiola Benson on 10-11-2024 Erythrocyte distribution width (RBC) [Ratio] Erythrocyte distribution width [Ratio] by Automated count High 12.0-14.8 [facility] Globulin Calc (S) [Mass/Vol] Ordered By: Abiola Benson on 10-11-2024 Globulin (S) [Mass/Vol] Serum globulin measurement by calculation (mass/volume) [facility] Glucose Poct Glucometerson 1 12-12-2023 Glucose [Mass/Vol] 206 mg/dL Normal [facility] Comment on above: Result Comment: [facility] Glucose Reference Range is dependent on time and content of last meal. Glucose of more than 200 mg/dL in a nonstressed, ambulatory subject supports the diagnosis of Diabetes Mellitus. PERFORMED BY: [place] [address] PATHOLOGIST [employer] OFFICER VENUS NORIEGA M.D. Performed By: #### C K, LIPASE, CBC, BMP, BNP, HEPATIC, HS TROP #### [address] Glucose [Mass/Vol] 178 mg/dL Normal [facility] Comment on above: Result Comment: [facility] Glucose Reference Range is dependent on time and content of last meal. Glucose of more than 200 mg/dL in a nonstressed, ambulatory subject supports the diagnosis of Diabetes Mellitus. PERFORMED BY: [place] [address] PATHOLOGIST SEC[employer] OFFICER VENUS NORIEGA M.D. Performed By: #### G LULS #### Point of Care testing , Glucose [Mass/Vol] 204 mg/dL Normal [facility] Comment on above: Result Comment: [facility] Glucose Reference Range is dependent on time and content of last meal. Glucose of more than 200 mg/dL in a nonstressed, ambulatory subject supports the diagnosis of Diabetes Mellitus. PERFORMED BY: [place] [address] PATHOLOGIST SEC[employer] OFFICER VENUS NORIEGA M.D. Performed By: #### C K, LIPASE, CBC, BMP, BNP, HEPATIC, HS TROP #### [facility] [address] [place] [id number] [facility] Glucose [Mass/Vol] 146 mg/dL Normal [facility] Comment on above: Result Comment: [place] [facility] Glucose Reference Range is dependent on time and content of last meal. Glucose of more than 200 mg/dL in a nonstressed, ambulatory subject supports the diagnosis of Diabetes Mellitus. PERFORMED BY: [facility] [address] [place] [id number] PATHOLOGIST SEC[employer] OFFICER VENUS NORIEGA M.D. Performed By: #### C K, LIPASE, CBC, BMP, BNP, HEPATIC, HS TROP #### [facility] [address] [place] [id number] [facility] Glucose [Mass/volume] in Ser um or PlasmaOrdered By: Abiola Benson on 10-11-2024 Glucose [Mass/Vol] Glucose [Mass/volume ] in Serum or Plasma High 70-100 [facility] Comment on above: ADA recommended refe rence rangeRandom Glucose Reference Range is dependent on time and content of last meal. Glucose of more than 200 mg/dL in a nonstressed, ambulatory subject supports the diagnosis of Diabetes Mellitus. Hematocrit Auto (Bld) [Volum e fraction]Ordered By: Abiola Benson on 10-11-2024 Hematocrit (Bld) [Volume fraction] Hematocrit [Volume Fraction] of Blood by Automated count Low 38.8-50.0 [facility] Hemoglobin [Mass/volume] in BloodOrdered By: Abiola Benson on 10-11-2024 Hemoglobin (Bld) [Mass/Vol] Hemoglobin [Mass/volume] in Blood Low 13.0-17.0 [facility] Leukocytes [#/volume] correc willian for nucleated erythrocytes in Blood by Automated counOrdered By: Abiola Benson on 10-11-2024 WBC corrected for nucl RBC Auto (Bld) [#/Vol] Leukocytes [#/volume] corrected for nucleated erythrocytes in Blood by Automated coun Low 4.1-10.5 [facility] Lymphocytes Auto (Bld) [#/Vo l]Ordered By: Abiola Benson on 10-11-2024 Lymphocytes (Bld) [#/Vol] Lymphocytes [#/volume] in Blood by Automated count 1.00-4.8 [facility] Lymphocytes/100 WBC Auto (Bl d)Ordered By: Abiola Benson on 10-11-2024 Lymphocytes/100 WBC (Bld) Lymphocytes/100 leukocytes in Blood by Automated count . [facility] MCH Auto (RBC) [Entitic mass ]Ordered By: Abiola Benson on 10-11-2024 MCH (RBC) [Entitic mass] MCH [Entitic mass] by Automated count 27.5-35.2 [facility] MCHC Auto (RBC) [Mass/Vol]Or dered By: Abiola Benson on 10-11-2024 MCHC (RBC) [Mass/Vol] MCHC [Mass/volume] by Automated count 32.5-35.6 [facility] MCV Auto (RBC) [Entitic vol] Ordered By: Abiola Benson on 10-11-2024 MCV (RBC) [Entitic vol] MCV [Entitic volume] by Automated count Low 83.5-101 [facility] Magnesiumon 10-11-2024 Magnesium [Mass/Vol] 1.8 mg/dL Low 1.9-2.7 [facility] Comment on above: Result Comment: PERF ORMED BY: [place] [address] PATHOLOGIST SEC[employer] OFFICER VENUS NORIEGA M.D. Performed By: #### C K, LIPASE, CBC, BMP, BNP, HEPATIC, HS TROP #### [facility] [address] Magnesium [Mass/volume] in S chiara or PlasmaOrdered By: Abiola Benson on 10-11-2024 Magnesium [Mass/Vol] Magnesium [Mass/vol ume] in Serum or Plasma Low 1.9-2.7 [facility] Monocytes Auto (Bld) [#/Vol] Ordered By: Abiola Benson on 10-11-2024 Monocytes (Bld) [#/Vol] Automated blood monocyte count 0.0-0.8 [facility] Monocytes/100 WBC Auto (Bld) Ordered By: Abiola Benson on 10-11-2024 Monocytes/100 WBC (Bld) Automated monocyte % . [facility] Neutrophils Auto (Bld) [#/Vo l]Ordered By: Abiola Benson on 10-11-2024 Neutrophils (Bld) [#/Vol] Neutrophils [#/volume] in Blood by Automated count Low 1.8-7.7 [facility] Neutrophils/100 WBC Auto (Bl d)Ordered By: Abiola Benson on 10-11-2024 Neutrophils/100 WBC (Bld) Automated neutrophil % . [facility] No Panel InformationOrdered By: Abiola Benson on 10-11-2024 Estimated GFR (CKD-EPI) > 60.0 mL/Min [facility] Creatinine Clearance (Chem 95.93 [facility] Nucleated erythrocytes [Pres ence] in Blood by Automated countOrdered By: Abiola Benson on 10-11-2024 Nucleated RBC Auto Ql (Bld) Nucleated erythrocytes [Presence] in Blood by Automated count 0-0.5 [facility] Platelet mean volume Auto (B ld) [Entitic vol]Ordered By: Abiola Benson on 10-11-2024 Platelet mean volume (Bld) [Entitic vol] Platelet mean volume [Entitic volume] in Blood by Automated count 6.6-10.1 [facility] Platelets Auto (Bld) [#/Vol] Ordered By: Abiola Benson on 10-11-2024 Platelets (Bld) [#/Vol] Platelets [#/volume] in Blood by Automated count 150-450 [facility] Potassium [Moles/volume] in Serum or PlasmaOrdered By: Abiola Benson on 10-11-2024 Potassium [Moles/Vol] Potassium [Moles/volume] in Serum or Plasma 3.5-5.1 [facility] Protein [Mass/volume] in Ser um or PlasmaOrdered By: Abiola Benson on 10-11-2024 Protein [Mass/Vol] Protein [Mass/volume ] in Serum or Plasma Low 6.4-8.9 [facility] RBC Auto (Bld) [#/Vol]Ordere d By: Abiloa Benson on 10-11-2024 RBC (Bld) [#/Vol] Erythrocytes [#/volu me] in Blood by Automated count Low 3.90-5.60 [facility] Serum or plasma albumin/glob ulin mass ratioOrdered By: Abiola Benson on 10-11-2024 Albumin/Globulin [Mass ratio] Serum or plasma albumin/globulin mass ratio [facility] Serum or plasma anion gap de terminationOrdered By: Abiola Benson on 10-11-2024 Anion gap [Moles/Vol] Serum or plasma an ion gap determination 6.0-15.0 [facility] Sodium [Moles/volume] in Ser um or PlasmaOrdered By: Abiola Benson on 10-11-2024 Sodium [Moles/Vol] Sodium [Moles/volume ] in Serum or Plasma 136-145 [facility] US venous duplex UE LTon US venous duplex UE LT [facility] [place] [address] Ultrasound Report Signed Patient: Vashti Massey MR#: [id number] : 1955 Acct:[id number] Age/Sex: 69 / M ADM Date: 10/06/24 Loc: Room: [address] [place] [address] Type: ADM IN Attending Dr: Bryson Chavez [...] Javier Maria M.D.10/11/2024 10:33 AM Dictation Location: [place] [address] Tech: Colleen Ferreira Transcribed By: CALVIN 10/11/24 1033 Dictated By: Javier Maria MD 10/11/24 1033 Signed By: 10/11/24 1033 Normal [facility] Urea nitrogen [Mass/volume] in Serum or PlasmaOrdered By: Abiola Benson on 10-11-2024 Urea nitrogen [Mass/Vol] Urea nitrogen [Mass/volume] in Serum or Plasma 05-20 [facility] WBC Auto (Bld) [#/Vol]Ordere d By: Abiola Benson on 10-11-2024 WBC (Bld) [#/Vol] Leukocytes [#/volume ] in Blood by Automated count Low 4.1-10.5 [facility] Complete Blood Count Auto Di ffon 10-10-2024 Basophils (Bld) [#/Vol] 0.1 10*3/uL Normal 0.0-0.2 [facility] Comment on above: Result Comment: PERF ORMED BY: [place] [address] PATHOLOGIST SEC[employer] OFFICER VENUS NORIEGA M.D. Performed By: #### C K, LIPASE, CBC, BMP, BNP, HEPATIC, HS TROP #### [facility] [address] Basophils/100 WBC (Bld) 2.1 % Normal . [facility] Comment on above: Performed By: #### C K, LIPASE, CBC, BMP, BNP, HEPATIC, HS TROP #### [facility] [address] Eosinophils (Bld) [#/Vol] 0.1 10*3/uL Normal 0.0-0.45 [facility] Comment on above: Performed By: #### C K, LIPASE, CBC, BMP, BNP, HEPATIC, HS TROP #### [address] Eosinophils/100 WBC (Bld) 3.7 % Normal . [facility] Comment on above: Performed By: #### C K, LIPASE, CBC, BMP, BNP, HEPATIC, HS TROP #### [address] Erythrocyte distribution width (RBC) [Ratio] 16.7 % High 12.0-14.8 [facility] Comment on above: Performed By: #### C K, LIPASE, CBC, BMP, BNP, HEPATIC, HS TROP #### [address] Hematocrit (Bld) [Volume fraction] 27.0 % Low 38.8-50.0 [facility] Comment on above: Performed By: #### C K, LIPASE, CBC, BMP, BNP, HEPATIC, HS TROP #### [address] Hemoglobin (Bld) [Mass/Vol] 9.3 g/dL Low 13.0-17.0 [facility] Comment on above: Performed By: #### C K, LIPASE, CBC, BMP, BNP, HEPATIC, HS TROP #### [address] Lymphocytes (Bld) [#/Vol] 1.0 10*3/uL Normal 1.00-4.8 [facility] Comment on above: Performed By: #### C K, LIPASE, CBC, BMP, BNP, HEPATIC, HS TROP #### [address] Lymphocytes/100 WBC (Bld) 32.3 % Normal . [facility] Comment on above: Performed By: #### C K, LIPASE, CBC, BMP, BNP, HEPATIC, HS TROP #### [address] MCH (RBC) [Entitic mass] 28.3 pg Normal 27.5-35.2 [facility] Comment on above: Performed By: #### C K, LIPASE, CBC, BMP, BNP, HEPATIC, HS TROP #### [address] MCV (RBC) [Entitic vol] 82.3 fL Low 83.5-101 [facility] Comment on above: Performed By: #### C K, LIPASE, CBC, BMP, BNP, HEPATIC, HS TROP #### [address] Mean Corpuscular HGB Conc 34.4 g/dL Normal 32.5-35.6 [facility] Comment on above: Performed By: #### C K, LIPASE, CBC, BMP, BNP, HEPATIC, HS TROP #### [address] Monocytes (Bld) [#/Vol] 0.2 10*3/uL Normal 0.0-0.8 [facility] Comment on above: Performed By: #### C K, LIPASE, CBC, BMP, BNP, HEPATIC, HS TROP #### [address] Monocytes/100 WBC (Bld) 7.8 % Normal . [facility] Comment on above: Performed By: #### C K, LIPASE, CBC, BMP, BNP, HEPATIC, HS TROP #### [address] Neutrophils (Bld) [#/Vol] 1.7 10*3/uL Low 1.8-7.7 [facility] Comment on above: Performed By: #### C K, LIPASE, CBC, BMP, BNP, HEPATIC, HS TROP #### [address] Neutrophils/100 WBC (Bld) 54.1 % Normal . [facility] Comment on above: Performed By: #### C K, LIPASE, CBC, BMP, BNP, HEPATIC, HS TROP #### [address] NRBC% 0.1 /100{WBC} Normal 0-0.5 [facility] Comment on above: Performed By: #### C K, LIPASE, CBC, BMP, BNP, HEPATIC, HS TROP #### [address] Platelet mean volume (Bld) [Entitic vol] 6.7 fL Normal 6.6-10.1 [facility] Comment on above: Performed By: #### C K, LIPASE, CBC, BMP, BNP, HEPATIC, HS TROP #### [address] Platelets (Bld) [#/Vol] 293 10*3/uL Normal 150-450 [facility] Comment on above: Performed By: #### C K, LIPASE, CBC, BMP, BNP, HEPATIC, HS TROP #### [address] RBC (Bld) [#/Vol] 3.28 10*6/uL Low 3.90-5.60 [facility] Comment on above: Performed By: #### C K, LIPASE, CBC, BMP, BNP, HEPATIC, HS TROP #### [address] WBC (Bld) [#/Vol] 3.1 10*3/uL Low 4.1-10.5 [facility] Comment on above: Performed By: #### C K, LIPASE, CBC, BMP, BNP, HEPATIC, HS TROP #### [address] Comprehensive Metabolic Pane delonte 10-10-2024 Albumin [Mass/Vol] 3.8 g/dL Normal 3.5-5.7 [facility] Comment on above: Performed By: #### C K, LIPASE, CBC, BMP, BNP, HEPATIC, HS TROP #### [address] Albumin/Globulin [Mass ratio] 1.7 {ratio} Normal [facility] Comment on above: Performed By: #### C K, LIPASE, CBC, BMP, BNP, HEPATIC, HS TROP #### [place] [id number] [place] ALP [Catalytic activity/Vol] 71 U/L Normal 34-104 [facility] Comment on above: Performed By: #### C K, LIPASE, CBC, BMP, BNP, HEPATIC, HS TROP #### [address] ALT [Catalytic activity/Vol] 8 U/L Normal 7-52 [facility] Comment on above: Performed By: #### C K, LIPASE, CBC, BMP, BNP, HEPATIC, HS TROP #### [address] Anion gap [Moles/Vol] 9.6 mmol/L Normal 6.0-15.0 [facility] Comment on above: Performed By: #### C K, LIPASE, CBC, BMP, BNP, HEPATIC, HS TROP #### [address] AST [Catalytic activity/Vol] 7 U/L Low 13-39 [facility] Comment on above: Performed By: #### C K, LIPASE, CBC, BMP, BNP, HEPATIC, HS TROP #### [place] [address] [place] Bilirubin [Mass/Vol] 0.3 mg/dL Normal 0.3-1.0 [facility] Comment on above: Performed By: #### C K, LIPASE, CBC, BMP, BNP, HEPATIC, HS TROP #### [place] [address] [place] Calcium [Mass/Vol] 8.8 mg/dL Normal 8.6-10.3 [facility] Comment on above: Performed By: #### C K, LIPASE, CBC, BMP, BNP, HEPATIC, HS TROP #### [place] [address] [place] Chloride [Moles/Vol] 100 mmol/L Normal 98-107 [facility] Comment on above: Performed By: #### C K, LIPASE, CBC, BMP, BNP, HEPATIC, HS TROP #### [place] [address] [place] CO2 [Moles/Vol] 28.5 mmol/L Normal 21.0-31.0 [facility] Comment on above: Performed By: #### C K, LIPASE, CBC, BMP, BNP, HEPATIC, HS TROP #### [address] Creatinine [Mass/Vol] 0.56 mg/dL Low 0.70-1.30 [facility] Comment on above: Performed By: #### C K, LIPASE, CBC, BMP, BNP, HEPATIC, HS TROP #### [facility] [address] Creatinine Clr Calc Pharmacy 95.93 Normal [facility] Comment on above: Performed By: #### C K, LIPASE, CBC, BMP, BNP, HEPATIC, HS TROP #### [address] GFR/1.73 sq M.predicted MDRD (S/P/Bld) [Vol rate/Area] mL/min/{1.73_m2} Normal [facility] Comment on above: Performed By: #### C K, LIPASE, CBC, BMP, BNP, HEPATIC, HS TROP #### [address] Globulin (S) [Mass/Vol] 2.3 g/dL Normal [facility] Comment on above: Performed By: #### C K, LIPASE, CBC, BMP, BNP, HEPATIC, HS TROP #### [address] Glucose [Mass/Vol] 216 mg/dL High 70-100 [facility] Comment on above: Result Comment: [place] Glucose Reference Range is dependent on time and content of last meal. Glucose of more than 200 mg/dL in a nonstressed, ambulatory subject supports the diagnosis of Diabetes Mellitus. ADA recommended reference range Performed By: #### C K, LIPASE, CBC, BMP, BNP, HEPATIC, HS TROP #### [address] Potassium [Moles/Vol] 4.1 mmol/L Normal 3.5-5.1 [facility] Comment on above: Performed By: #### C K, LIPASE, CBC, BMP, BNP, HEPATIC, HS TROP #### [address] Protein [Mass/Vol] 6.1 g/dL Low 6.4-8.9 [facility] Comment on above: Performed By: #### C K, LIPASE, CBC, BMP, BNP, HEPATIC, HS TROP #### [address] Sodium [Moles/Vol] 134 mmol/L Low 136-145 [facility] Comment on above: Performed By: #### C K, LIPASE, CBC, BMP, BNP, HEPATIC, HS TROP #### [address] Urea nitrogen [Mass/Vol] 12 mg/dL Normal 7-25 [facility] Comment on above: Performed By: #### C K, LIPASE, CBC, BMP, BNP, HEPATIC, HS TROP #### [address] Glucose Poct Glucometerson 1 12-11-2023 Glucose [Mass/Vol] 245 mg/dL Normal [facility] Comment on above: Result Comment: [facility] Glucose Reference Range is dependent on time and content of last meal. Glucose of more than 200 mg/dL in a nonstressed, ambulatory subject supports the diagnosis of Diabetes Mellitus. PERFORMED BY: [place] [address] PATHOLOGIST SECURITY [employer]ROL OFFICER VENUS NORIEGA M.D. Performed By: #### C K, LIPASE, CBC, BMP, BNP, HEPATIC, HS TROP #### [address] Commemt1 Glu2: Cleaned Meter Normal [facility] Comment on above: Result Comment: PERF ORMED BY: [place] [address] PATHOLOGIST SEC[employer]ROL OFFICER VENUS NORIEGA M.D. Performed By: #### C K, LIPASE, CBC, BMP, BNP, HEPATIC, HS TROP #### [address] Glucose [Mass/Vol] 240 mg/dL Normal [facility] Comment on above: Result Comment: [place] Glucose Reference Range is dependent on time and content of last meal. Glucose of more than 200 mg/dL in a nonstressed, ambulatory subject supports the diagnosis of Diabetes Mellitus. Performed By: #### C K, LIPASE, CBC, BMP, BNP, HEPATIC, HS TROP #### [address] Commemt1 Glu2: Cleaned Meter Normal [facility] Comment on above: Result Comment: PERF ORMED BY: [place] [address] PATHOLOGIST SEC[employer]ROL OFFICER VENUS NORIEGA M.D. Performed By: #### C K, LIPASE, CBC, BMP, BNP, HEPATIC, HS TROP #### [address] Glucose [Mass/Vol] 223 mg/dL Normal [facility] Comment on above: Result Comment: [place] Glucose Reference Range is dependent on time and content of last meal. Glucose of more than 200 mg/dL in a nonstressed, ambulatory subject supports the diagnosis of Diabetes Mellitus. Performed By: #### C K, LIPASE, CBC, BMP, BNP, HEPATIC, HS TROP #### [address] Commemt1 Glu2: Cleaned Meter Normal [facility] Comment on above: Result Comment: PERF ORMED BY: [place] [address] PATHOLOGIST SECURITY [employer]ROL OFFICER VENUS NORIEGA M.D. Performed By: #### C K, LIPASE, CBC, BMP, BNP, HEPATIC, HS TROP #### [address] Glucose [Mass/Vol] 154 mg/dL Normal [facility] Comment on above: Result Comment: [place] Glucose Reference Range is dependent on time and content of last meal. Glucose of more than 200 mg/dL in a nonstressed, ambulatory subject supports the diagnosis of Diabetes Mellitus. Performed By: #### C K, LIPASE, CBC, BMP, BNP, HEPATIC, HS TROP #### [address] Magnesiumon 10-10-2024 Magnesium [Mass/Vol] 1.8 mg/dL Low 1.9-2.7 [facility] Comment on above: Result Comment: PERF ORMED BY: [place] [address] PATHOLOGIST SEC[employer] OFFICER VENUS NORIEGA M.D. Performed By: #### C K, LIPASE, CBC, BMP, BNP, HEPATIC, HS TROP #### [address] Complete Blood Count Auto Di ffon 10-09-2024 Basophils (Bld) [#/Vol] 0.1 10*3/uL Normal 0.0-0.2 [facility] Comment on above: Result Comment: PERF ORMED BY: [place] [address] PATHOLOGIST SEC[employer]ROL OFFICER VENUS NORIEGA M.D. Performed By: #### C K, LIPASE, CBC, BMP, BNP, HEPATIC, HS TROP #### [address] Basophils/100 WBC (Bld) 1.3 % Normal . [facility] Comment on above: Performed By: #### C K, LIPASE, CBC, BMP, BNP, HEPATIC, HS TROP #### [address] Eosinophils (Bld) [#/Vol] 0.1 10*3/uL Normal 0.0-0.45 [facility] Comment on above: Performed By: #### C K, LIPASE, CBC, BMP, BNP, HEPATIC, HS TROP #### [address] Eosinophils/100 WBC (Bld) 2.7 % Normal . [facility] Comment on above: Performed By: #### C K, LIPASE, CBC, BMP, BNP, HEPATIC, HS TROP #### [address] Erythrocyte distribution width (RBC) [Ratio] 17.1 % High 12.0-14.8 [facility] Comment on above: Performed By: #### C K, LIPASE, CBC, BMP, BNP, HEPATIC, HS TROP #### [address] Hematocrit (Bld) [Volume fraction] 26.6 % Low 38.8-50.0 [facility] Comment on above: Performed By: #### C K, LIPASE, CBC, BMP, BNP, HEPATIC, HS TROP #### [address] Hemoglobin (Bld) [Mass/Vol] 9.1 g/dL Low 13.0-17.0 [facility] Comment on above: Performed By: #### C K, LIPASE, CBC, BMP, BNP, HEPATIC, HS TROP #### [address] Lymphocytes (Bld) [#/Vol] 1.2 10*3/uL Normal 1.00-4.8 [facility] Comment on above: Performed By: #### C K, LIPASE, CBC, BMP, BNP, HEPATIC, HS TROP #### [address] Lymphocytes/100 WBC (Bld) 28.2 % Normal . [facility] Comment on above: Performed By: #### C K, LIPASE, CBC, BMP, BNP, HEPATIC, HS TROP #### [address] MCH (RBC) [Entitic mass] 27.9 pg Normal 27.5-35.2 [facility] Comment on above: Performed By: #### C K, LIPASE, CBC, BMP, BNP, HEPATIC, HS TROP #### [address] MCV (RBC) [Entitic vol] 81.5 fL Low 83.5-101 [facility] Comment on above: Performed By: #### C K, LIPASE, CBC, BMP, BNP, HEPATIC, HS TROP #### [address] Mean Corpuscular HGB Conc 34.2 g/dL Normal 32.5-35.6 [facility] Comment on above: Performed By: #### C K, LIPASE, CBC, BMP, BNP, HEPATIC, HS TROP #### [address] Monocytes (Bld) [#/Vol] 0.3 10*3/uL Normal 0.0-0.8 [facility] Comment on above: Performed By: #### C K, LIPASE, CBC, BMP, BNP, HEPATIC, HS TROP #### [address] Monocytes/100 WBC (Bld) 7.3 % Normal . [facility] Comment on above: Performed By: #### C K, LIPASE, CBC, BMP, BNP, HEPATIC, HS TROP #### [address] Neutrophils (Bld) [#/Vol] 2.5 10*3/uL Normal 1.8-7.7 [facility] Comment on above: Performed By: #### C K, LIPASE, CBC, BMP, BNP, HEPATIC, HS TROP #### [address] Neutrophils/100 WBC (Bld) 60.5 % Normal . [facility] [facility] Comment on above: Performed By: #### C K, LIPASE, CBC, BMP, BNP, HEPATIC, HS TROP #### [address] NRBC% 0.1 /100{WBC} Normal 0-0.5 [facility] Comment on above: Performed By: #### C K, LIPASE, CBC, BMP, BNP, HEPATIC, HS TROP #### [address] Platelet mean volume (Bld) [Entitic vol] 7.0 fL Normal 6.6-10.1 [facility] Comment on above: Performed By: #### C K, LIPASE, CBC, BMP, BNP, HEPATIC, HS TROP #### [address] Platelets (Bld) [#/Vol] 308 10*3/uL Normal 150-450 [facility] Comment on above: Performed By: #### C K, LIPASE, CBC, BMP, BNP, HEPATIC, HS TROP #### [address] RBC (Bld) [#/Vol] 3.26 10*6/uL Low 3.90-5.60 [facility] Comment on above: Performed By: #### C K, LIPASE, CBC, BMP, BNP, HEPATIC, HS TROP #### [address] WBC (Bld) [#/Vol] 4.2 10*3/uL Normal 4.1-10.5 [facility] Comment on above: Performed By: #### C K, LIPASE, CBC, BMP, BNP, HEPATIC, HS TROP #### [address] Comprehensive Metabolic Pane [place] 10-09-2024 Albumin [Mass/Vol] 3.9 g/dL Normal 3.5-5.7 [facility] Comment on above: Performed By: #### C K, LIPASE, CBC, BMP, BNP, HEPATIC, HS TROP #### [address] Albumin/Globulin [Mass ratio] 1.8 {ratio} Normal [facility] Comment on above: Performed By: #### C K, LIPASE, CBC, BMP, BNP, HEPATIC, HS TROP #### [address] ALP [Catalytic activity/Vol] 57 U/L Normal 34-104 [facility] Comment on above: Performed By: #### C K, LIPASE, CBC, BMP, BNP, HEPATIC, HS TROP #### [address] ALT [Catalytic activity/Vol] 8 U/L Normal 7-52 [facility] Comment on above: Performed By: #### C K, LIPASE, CBC, BMP, BNP, HEPATIC, HS TROP #### [address] Anion gap [Moles/Vol] 9.3 mmol/L Normal 6.0-15.0 [facility] Comment on above: Performed By: #### C K, LIPASE, CBC, BMP, BNP, HEPATIC, HS TROP #### [address] AST [Catalytic activity/Vol] 8 U/L Low 13-39 [facility] Comment on above: Performed By: #### C K, LIPASE, CBC, BMP, BNP, HEPATIC, HS TROP #### [address] Bilirubin [Mass/Vol] 0.4 mg/dL Normal 0.3-1.0 [facility] Comment on above: Performed By: #### C K, LIPASE, CBC, BMP, BNP, HEPATIC, HS TROP #### [address] Calcium [Mass/Vol] 8.7 mg/dL Normal 8.6-10.3 [facility] Comment on above: Performed By: #### C K, LIPASE, CBC, BMP, BNP, HEPATIC, HS TROP #### [place] [address] [place] Chloride [Moles/Vol] 100 mmol/L Normal 98-107 [facility] Comment on above: Performed By: #### C K, LIPASE, CBC, BMP, BNP, HEPATIC, HS TROP #### [place] [address] [place] CO2 [Moles/Vol] 29.0 mmol/L Normal 21.0-31.0 [facility] Comment on above: Performed By: #### C K, LIPASE, CBC, BMP, BNP, HEPATIC, HS TROP #### [place] [id number] [place] Creatinine [Mass/Vol] 0.63 mg/dL Low 0.70-1.30 [facility] Comment on above: Performed By: #### C K, LIPASE, CBC, BMP, BNP, HEPATIC, HS TROP #### [facility] [address] [place] [address] [place] Creatinine Clr Calc Pharmacy 95.93 Normal [facility] Comment on above: Performed By: #### C K, LIPASE, CBC, BMP, BNP, HEPATIC, HS TROP #### [facility] [address] [place] [address] [place] GFR/1.73 sq M.predicted MDRD (S/P/Bld) [Vol rate/Area] mL/min/{1.73_m2} Normal [facility] Comment on above: Performed By: #### C K, LIPASE, CBC, BMP, BNP, HEPATIC, HS TROP #### [address] Globulin (S) [Mass/Vol] 2.2 g/dL Normal [facility] Comment on above: Performed By: #### C K, LIPASE, CBC, BMP, BNP, HEPATIC, HS TROP #### [address] Glucose [Mass/Vol] 221 mg/dL High 70-100 [facility] Comment on above: Result Comment: [place] Glucose Reference Range is dependent on time and content of last meal. Glucose of more than 200 mg/dL in a nonstressed, ambulatory subject supports the diagnosis of Diabetes Mellitus. ADA recommended reference range Performed By: #### C K, LIPASE, CBC, BMP, BNP, HEPATIC, HS TROP #### [address] Potassium [Moles/Vol] 4.3 mmol/L Normal 3.5-5.1 [facility] Comment on above: Performed By: #### C K, LIPASE, CBC, BMP, BNP, HEPATIC, HS TROP #### [facility] [address] Protein [Mass/Vol] 6.1 g/dL Low 6.4-8.9 [facility] Comment on above: Performed By: #### C K, LIPASE, CBC, BMP, BNP, HEPATIC, HS TROP #### [address] Sodium [Moles/Vol] 134 mmol/L Low 136-145 [facility] Comment on above: Performed By: #### C K, LIPASE, CBC, BMP, BNP, HEPATIC, HS TROP #### [address] Urea nitrogen [Mass/Vol] 15 mg/dL Normal 7-25 [facility] Comment on above: Performed By: #### C K, LIPASE, CBC, BMP, BNP, HEPATIC, HS TROP #### [address] Glucose Poct Glucometerson 1 12-10-2023 Glucose [Mass/Vol] 208 mg/dL Normal [facility] Comment on above: Result Comment: [facility] Glucose Reference Range is dependent on time and content of last meal. Glucose of more than 200 mg/dL in a nonstressed, ambulatory subject supports the diagnosis of Diabetes Mellitus. PERFORMED BY: [place] [address] PATHOLOGIST [employer]ICER VENUS NORIEGA M.D. Performed By: #### C K, LIPASE, CBC, BMP, BNP, HEPATIC, HS TROP #### [address] Glucose [Mass/Vol] 242 mg/dL Normal [facility] Comment on above: Result Comment: [place] Glucose Reference Range is dependent on time and content of last meal. Glucose of more than 200 mg/dL in a nonstressed, ambulatory subject supports the diagnosis of Diabetes Mellitus. PERFORMED BY: [place] [address] PATHOLOGIST [employer] OFFICER VENUS NORIEGA M.D. Performed By: #### C K, LIPASE, CBC, BMP, BNP, HEPATIC, HS TROP #### [place] [address] [place] Glucose [Mass/Vol] 220 mg/dL Normal [facility] Comment on above: Result Comment: [place] om Glucose Reference Range is dependent on time and content of last meal. Glucose of more than 200 mg/dL in a nonstressed, ambulatory subject supports the diagnosis of Diabetes Mellitus. PERFORMED BY: [place] [address] PATHOLOGIST [employer] OFFICER VENUS NORIEGA M.D. Performed By: #### C K, LIPASE, CBC, BMP, BNP, HEPATIC, HS TROP #### [address] Glucose [Mass/Vol] 148 mg/dL Normal [facility] Comment on above: Result Comment: [place] om Glucose Reference Range is dependent on time and content of last meal. Glucose of more than 200 mg/dL in a nonstressed, ambulatory subject supports the diagnosis of Diabetes Mellitus. PERFORMED BY: [place] [address] PATHOLOGIST [employer] OFFICER VENUS NORIEGA M.D. Performed By: #### C K, LIPASE, CBC, BMP, BNP, HEPATIC, HS TROP #### [address] Magnesiumon 10-09-2024 Magnesium [Mass/Vol] 1.8 mg/dL Low 1.9-2.7 [facility] Comment on above: Result Comment: PERF ORMED BY: [place] [address] PATHOLOGIST [employer] OFFICER VENUS NORIEGA M.D. Performed By: #### C K, LIPASE, CBC, BMP, BNP, HEPATIC, HS TROP #### [address] Phosphate [Mass/volume] in S chiara or PlasmaOrdered By: Debbie Lundberg on 10-09-2024 Phosphate [Mass/Vol] Phosphate [Mass/vol ume] in Serum or Plasma 2.5-4.5 [facility] Phosphoruson 10-09-2024 Phosphate [Mass/Vol] 3.2 mg/dL Normal 2.5-4.5 [facility] Comment on above: Performed By: #### C K, LIPASE, CBC, BMP, BNP, HEPATIC, HS TROP #### [address] Complete Blood Count Auto Di ffon 10-08-2024 Basophils (Bld) [#/Vol] 0.1 10*3/uL Normal 0.0-0.2 [facility] Comment on above: Result Comment: PERF ORMED BY: [place] [address] PATHOLOGIST [employer] OFFICER VENUS NORIEGA M.D. Performed By: #### C K, LIPASE, CBC, BMP, BNP, HEPATIC, HS TROP #### [address] Basophils/100 WBC (Bld) 2.5 % Normal . [facility] Comment on above: Performed By: #### C K, LIPASE, CBC, BMP, BNP, HEPATIC, HS TROP #### [address] Eosinophils (Bld) [#/Vol] 0.1 10*3/uL Normal 0.0-0.45 [facility] Comment on above: Performed By: #### C K, LIPASE, CBC, BMP, BNP, HEPATIC, HS TROP #### [address] Eosinophils/100 WBC (Bld) 3.3 % Normal . [facility] Comment on above: Performed By: #### C K, LIPASE, CBC, BMP, BNP, HEPATIC, HS TROP #### [address] Erythrocyte distribution width (RBC) [Ratio] 17.0 % High 12.0-14.8 [facility] Comment on above: Performed By: #### C K, LIPASE, CBC, BMP, BNP, HEPATIC, HS TROP #### [address] Hematocrit (Bld) [Volume fraction] 26.3 % Low 38.8-50.0 [facility] Comment on above: Performed By: #### C K, LIPASE, CBC, BMP, BNP, HEPATIC, HS TROP #### [address] Hemoglobin (Bld) [Mass/Vol] 9.0 g/dL Low 13.0-17.0 [facility] Comment on above: Performed By: #### C K, LIPASE, CBC, BMP, BNP, HEPATIC, HS TROP #### [address] Lymphocytes (Bld) [#/Vol] 1.1 10*3/uL Normal 1.00-4.8 [facility] Comment on above: Performed By: #### C K, LIPASE, CBC, BMP, BNP, HEPATIC, HS TROP #### [address] Lymphocytes/100 WBC (Bld) 39.6 % Normal . [facility] Comment on above: Performed By: #### C K, LIPASE, CBC, BMP, BNP, HEPATIC, HS TROP #### [address] MCH (RBC) [Entitic mass] 27.8 pg Normal 27.5-35.2 [facility] Comment on above: Performed By: #### C K, LIPASE, CBC, BMP, BNP, HEPATIC, HS TROP #### [address] MCV (RBC) [Entitic vol] 81.0 fL Low 83.5-101 [facility] Comment on above: Performed By: #### C K, LIPASE, CBC, BMP, BNP, HEPATIC, HS TROP #### [address] Mean Corpuscular HGB Conc 34.2 g/dL Normal 32.5-35.6 [facility] Comment on above: Performed By: #### C K, LIPASE, CBC, BMP, BNP, HEPATIC, HS TROP #### [address] Monocytes (Bld) [#/Vol] 0.2 10*3/uL Normal 0.0-0.8 [facility] Comment on above: Performed By: #### C K, LIPASE, CBC, BMP, BNP, HEPATIC, HS TROP #### [address] Monocytes/100 WBC (Bld) 7.2 % Normal . [facility] Comment on above: Performed By: #### C K, LIPASE, CBC, BMP, BNP, HEPATIC, HS TROP #### [address] Neutrophils (Bld) [#/Vol] 1.3 10*3/uL Low 1.8-7.7 [facility] Comment on above: Performed By: #### C K, LIPASE, CBC, BMP, BNP, HEPATIC, HS TROP #### [address] Neutrophils/100 WBC (Bld) 47.4 % Normal . [facility] Comment on above: Performed By: #### C K, LIPASE, CBC, BMP, BNP, HEPATIC, HS TROP #### [address] NRBC% 0.1 /100{WBC} Normal 0-0.5 [facility] Comment on above: Performed By: #### C K, LIPASE, CBC, BMP, BNP, HEPATIC, HS TROP #### [address] Platelet mean volume (Bld) [Entitic vol] 7.0 fL Normal 6.6-10.1 [facility] Comment on above: Performed By: #### C K, LIPASE, CBC, BMP, BNP, HEPATIC, HS TROP #### [address] Platelets (Bld) [#/Vol] 306 10*3/uL Normal 150-450 [facility] Comment on above: Performed By: #### C K, LIPASE, CBC, BMP, BNP, HEPATIC, HS TROP #### [address] RBC (Bld) [#/Vol] 3.24 10*6/uL Low 3.90-5.60 [facility] Comment on above: Performed By: #### C K, LIPASE, CBC, BMP, BNP, HEPATIC, HS TROP #### [address] WBC (Bld) [#/Vol] 2.7 10*3/uL Low 4.1-10.5 [facility] Comment on above: Performed By: #### C K, LIPASE, CBC, BMP, BNP, HEPATIC, HS TROP #### [place] [address] [place] Basophils (Bld) [#/Vol] 0.1 10*3/uL Normal 0.0-0.2 [facility] Comment on above: Result Comment: PERF ORMED BY: [place] [address] PATHOLOGIST SEC[employer] OFFICER VENUS NORIEGA M.D. Performed By: #### C K, LIPASE, CBC, BMP, BNP, HEPATIC, HS TROP #### [address] Basophils/100 WBC (Bld) 2.0 % Normal . [facility] Comment on above: Performed By: #### C K, LIPASE, CBC, BMP, BNP, HEPATIC, HS TROP #### [place] [address] [place] Eosinophils (Bld) [#/Vol] 0.1 10*3/uL Normal 0.0-0.45 [facility] Comment on above: Performed By: #### C K, LIPASE, CBC, BMP, BNP, HEPATIC, HS TROP #### [place] [address] [place] Eosinophils/100 WBC (Bld) 4.3 % Normal . [facility] Comment on above: Performed By: #### C K, LIPASE, CBC, BMP, BNP, HEPATIC, HS TROP #### [place] [id number] [place] Erythrocyte distribution width (RBC) [Ratio] 17.1 % High 12.0-14.8 [facility] Comment on above: Performed By: #### C K, LIPASE, CBC, BMP, BNP, HEPATIC, HS TROP #### [address] Hematocrit (Bld) [Volume fraction] 26.5 % Low 38.8-50.0 [facility] Comment on above: Performed By: #### C K, LIPASE, CBC, BMP, BNP, HEPATIC, HS TROP #### [address] Hemoglobin (Bld) [Mass/Vol] 9.2 g/dL Low 13.0-17.0 [facility] Comment on above: Performed By: #### C K, LIPASE, CBC, BMP, BNP, HEPATIC, HS TROP #### [address] Lymphocytes (Bld) [#/Vol] 1.3 10*3/uL Normal 1.00-4.8 [facility] Comment on above: Performed By: #### C K, LIPASE, CBC, BMP, BNP, HEPATIC, HS TROP #### [address] Lymphocytes/100 WBC (Bld) 45.9 % Normal . [facility] Comment on above: Performed By: #### C K, LIPASE, CBC, BMP, BNP, HEPATIC, HS TROP #### [address] MCH (RBC) [Entitic mass] 28.5 pg Normal 27.5-35.2 [facility] Comment on above: Performed By: #### C K, LIPASE, CBC, BMP, BNP, HEPATIC, HS TROP #### [address] MCV (RBC) [Entitic vol] 81.8 fL Low 83.5-101 [facility] Comment on above: Performed By: #### C K, LIPASE, CBC, BMP, BNP, HEPATIC, HS TROP #### [address] Mean Corpuscular HGB Conc 34.9 g/dL Normal 32.5-35.6 [facility] Comment on above: Performed By: #### C K, LIPASE, CBC, BMP, BNP, HEPATIC, HS TROP #### [address] Monocytes (Bld) [#/Vol] 0.2 10*3/uL Normal 0.0-0.8 [facility] Comment on above: Performed By: #### C K, LIPASE, CBC, BMP, BNP, HEPATIC, HS TROP #### [address] Monocytes/100 WBC (Bld) 7.1 % Normal . [facility] Comment on above: Performed By: #### C K, LIPASE, CBC, BMP, BNP, HEPATIC, HS TROP #### [address] Neutrophils (Bld) [#/Vol] 1.1 10*3/uL Low 1.8-7.7 [facility] Comment on above: Performed By: #### C K, LIPASE, CBC, BMP, BNP, HEPATIC, HS TROP #### [address] Neutrophils/100 WBC (Bld) 40.7 % Normal . [facility] Comment on above: Performed By: #### C K, LIPASE, CBC, BMP, BNP, HEPATIC, HS TROP #### [address] NRBC% 0.1 /100{WBC} Normal 0-0.5 [facility] Comment on above: Performed By: #### C K, LIPASE, CBC, BMP, BNP, HEPATIC, HS TROP #### [address] Platelet mean volume (Bld) [Entitic vol] 7.3 fL Normal 6.6-10.1 [facility] Comment on above: Performed By: #### C K, LIPASE, CBC, BMP, BNP, HEPATIC, HS TROP #### [facility] [address] Platelets (Bld) [#/Vol] 284 10*3/uL Normal 150-450 [facility] Comment on above: Performed By: #### C K, LIPASE, CBC, BMP, BNP, HEPATIC, HS TROP #### [address] RBC (Bld) [#/Vol] 3.24 10*6/uL Low 3.90-5.60 [facility] Comment on above: Performed By: #### C K, LIPASE, CBC, BMP, BNP, HEPATIC, HS TROP #### [address] WBC (Bld) [#/Vol] 2.8 10*3/uL Low 4.1-10.5 [facility] Comment on above: Performed By: #### C K, LIPASE, CBC, BMP, BNP, HEPATIC, HS TROP #### [address] Comprehensive Metabolic Pane [facility] 10-08-2024 Albumin [Mass/Vol] 3.8 g/dL Normal 3.5-5.7 [facility] Comment on above: Performed By: #### C K, LIPASE, CBC, BMP, BNP, HEPATIC, HS TROP #### [address] Albumin/Globulin [Mass ratio] 1.7 {ratio} Normal [facility] Comment on above: Performed By: #### C K, LIPASE, CBC, BMP, BNP, HEPATIC, HS TROP #### [address] ALP [Catalytic activity/Vol] 55 U/L Normal 34-104 [facility] Comment on above: Performed By: #### C K, LIPASE, CBC, BMP, BNP, HEPATIC, HS TROP #### [address] ALT [Catalytic activity/Vol] 8 U/L Normal 7-52 [facility] Comment on above: Performed By: #### C K, LIPASE, CBC, BMP, BNP, HEPATIC, HS TROP #### [address] Anion gap [Moles/Vol] 9.1 mmol/L Normal 6.0-15.0 [facility] Comment on above: Performed By: #### C K, LIPASE, CBC, BMP, BNP, HEPATIC, HS TROP #### [address] AST [Catalytic activity/Vol] 9 U/L Low 13-39 [facility] Comment on above: Performed By: #### C K, LIPASE, CBC, BMP, BNP, HEPATIC, HS TROP #### [address] Bilirubin [Mass/Vol] 0.4 mg/dL Normal 0.3-1.0 [facility] Comment on above: Performed By: #### C K, LIPASE, CBC, BMP, BNP, HEPATIC, HS TROP #### [address] Calcium [Mass/Vol] 8.7 mg/dL Normal 8.6-10.3 [facility] Comment on above: Performed By: #### C K, LIPASE, CBC, BMP, BNP, HEPATIC, HS TROP #### [address] Chloride [Moles/Vol] 101 mmol/L Normal 98-107 [facility] Comment on above: Performed By: #### C K, LIPASE, CBC, BMP, BNP, HEPATIC, HS TROP #### [address] CO2 [Moles/Vol] 29.9 mmol/L Normal 21.0-31.0 [facility] Comment on above: Performed By: #### C K, LIPASE, CBC, BMP, BNP, HEPATIC, HS TROP #### [address] Creatinine [Mass/Vol] 0.64 mg/dL Low 0.70-1.30 [facility] Comment on above: Performed By: #### C K, LIPASE, CBC, BMP, BNP, HEPATIC, HS TROP #### [address] Creatinine Clr Calc Pharmacy 95.88 Normal [facility] Comment on above: Performed By: #### C K, LIPASE, CBC, BMP, BNP, HEPATIC, HS TROP #### [address] GFR/1.73 sq M.predicted MDRD (S/P/Bld) [Vol rate/Area] mL/min/{1.73_m2} Normal [facility] Comment on above: Performed By: #### C K, LIPASE, CBC, BMP, BNP, HEPATIC, HS TROP #### [address] Globulin (S) [Mass/Vol] 2.2 g/dL Normal [facility] Comment on above: Performed By: #### C K, LIPASE, CBC, BMP, BNP, HEPATIC, HS TROP #### [address] Glucose [Mass/Vol] 191 mg/dL High 70-100 [facility] Comment on above: Result Comment: [place] Glucose Reference Range is dependent on time and content of last meal. Glucose of more than 200 mg/dL in a nonstressed, ambulatory subject supports the diagnosis of Diabetes Mellitus. ADA recommended reference range Performed By: #### C K, LIPASE, CBC, BMP, BNP, HEPATIC, HS TROP #### [address] Potassium [Moles/Vol] 4.0 mmol/L Normal 3.5-5.1 [facility] Comment on above: Performed By: #### C K, LIPASE, CBC, BMP, BNP, HEPATIC, HS TROP #### [address] Protein [Mass/Vol] 6.0 g/dL Low 6.4-8.9 [facility] Comment on above: Performed By: #### C K, LIPASE, CBC, BMP, BNP, HEPATIC, HS TROP #### [address] Sodium [Moles/Vol] 136 mmol/L Normal 136-145 [facility] Comment on above: Performed By: #### C K, LIPASE, CBC, BMP, BNP, HEPATIC, HS TROP #### [address] Urea nitrogen [Mass/Vol] 20 mg/dL Normal 7-25 [facility] Comment on above: Performed By: #### C K, LIPASE, CBC, BMP, BNP, HEPATIC, HS TROP #### [address] Albumin [Mass/Vol] 3.7 g/dL Normal 3.5-5.7 [facility] Comment on above: Performed By: #### C K, LIPASE, CBC, BMP, BNP, HEPATIC, HS TROP #### [address] Albumin/Globulin [Mass ratio] 1.7 {ratio} Normal [facility] Comment on above: Performed By: #### C K, LIPASE, CBC, BMP, BNP, HEPATIC, HS TROP #### [address] ALP [Catalytic activity/Vol] 58 U/L Normal 34-104 [facility] Comment on above: Performed By: #### C K, LIPASE, CBC, BMP, BNP, HEPATIC, HS TROP #### [address] ALT [Catalytic activity/Vol] 8 U/L Normal 7-52 [facility] Comment on above: Performed By: #### C K, LIPASE, CBC, BMP, BNP, HEPATIC, HS TROP #### [address] Anion gap [Moles/Vol] 8.6 mmol/L Normal 6.0-15.0 [facility] Comment on above: Performed By: #### C K, LIPASE, CBC, BMP, BNP, HEPATIC, HS TROP #### [place] [address] [place] AST [Catalytic activity/Vol] 7 U/L Low 13-39 [facility] Comment on above: Performed By: #### C K, LIPASE, CBC, BMP, BNP, HEPATIC, HS TROP #### [address] Bilirubin [Mass/Vol] 0.4 mg/dL Normal 0.3-1.0 [facility] Comment on above: Performed By: #### C K, LIPASE, CBC, BMP, BNP, HEPATIC, HS TROP #### [address] Calcium [Mass/Vol] 8.6 mg/dL Normal 8.6-10.3 [facility] Comment on above: Performed By: #### C K, LIPASE, CBC, BMP, BNP, HEPATIC, HS TROP #### [address] Chloride [Moles/Vol] 100 mmol/L Normal 98-107 [facility] Comment on above: Performed By: #### C K, LIPASE, CBC, BMP, BNP, HEPATIC, HS TROP #### [address] CO2 [Moles/Vol] 29.2 mmol/L Normal 21.0-31.0 [facility] Comment on above: Performed By: #### C K, LIPASE, CBC, BMP, BNP, HEPATIC, HS TROP #### [address] Creatinine [Mass/Vol] 0.63 mg/dL Low 0.70-1.30 [facility] Comment on above: Performed By: #### C K, LIPASE, CBC, BMP, BNP, HEPATIC, HS TROP #### [place] [address] [place] Creatinine Clr Calc Pharmacy 95.88 Normal [facility] Comment on above: Performed By: #### C K, LIPASE, CBC, BMP, BNP, HEPATIC, HS TROP #### [address] GFR/1.73 sq M.predicted MDRD (S/P/Bld) [Vol rate/Area] mL/min/{1.73_m2} Normal [facility] Comment on above: Performed By: #### C K, LIPASE, CBC, BMP, BNP, HEPATIC, HS TROP #### [facility] [address] Globulin (S) [Mass/Vol] 2.2 g/dL Normal [facility] Comment on above: Performed By: #### C K, LIPASE, CBC, BMP, BNP, HEPATIC, HS TROP #### [facility] [address] Glucose [Mass/Vol] 136 mg/dL High 70-100 [facility] Comment on above: Result Comment: [facility] Glucose Reference Range is dependent on time and content of last meal. Glucose of more than 200 mg/dL in a nonstressed, ambulatory subject supports the diagnosis of Diabetes Mellitus. ADA recommended reference range Performed By: #### C K, LIPASE, CBC, BMP, BNP, HEPATIC, HS TROP #### [address] Potassium [Moles/Vol] 3.8 mmol/L Normal 3.5-5.1 [facility] Comment on above: Performed By: #### C K, LIPASE, CBC, BMP, BNP, HEPATIC, HS TROP #### [facility] [address] Protein [Mass/Vol] 5.9 g/dL Low 6.4-8.9 [facility] Comment on above: Performed By: #### C K, LIPASE, CBC, BMP, BNP, HEPATIC, HS TROP #### [facility] [address] Sodium [Moles/Vol] 134 mmol/L Low 136-145 [facility] Comment on above: Performed By: #### C K, LIPASE, CBC, BMP, BNP, HEPATIC, HS TROP #### [facility] [address] Urea nitrogen [Mass/Vol] 22 mg/dL Normal 7-25 [facility] Comment on above: Performed By: #### C K, LIPASE, CBC, BMP, BNP, HEPATIC, HS TROP #### [facility] [address] ESR (Bld) [Velocity]on 10-08 [facility] Erythrocyte Sedimentation Ra james 10-08-2024 ESR (Bld) [Velocity] 14 mm/h Normal 0-19 [facility] Comment on above: Result Comment: PERF ORMED BY: [place] [address] PATHOLOGIST [employer]ROL OFFICER VENUS NORIEGA M.D. Performed By: #### C K, LIPASE, CBC, BMP, BNP, HEPATIC, HS TROP #### [facility] [address] [place] [address] Erythrocyte sedimentation ra te by Photometric methodOrdered By: Gerard Platt on 10-08-2024 ESR Photometric method (Bld) [Velocity] Erythrocyte sedimentation rate by Photometric method 0-19 [facility] [place] urethrocystogram retroon 10-08-2024 [place] urethrocystogram retro [facility] [place] [address] [place] [address] Fluoroscopy Report Signed Patient: Vashti Massey MR#: [id number] : 1955 Acct:[id number] Age/Sex: 69 / M ADM Date: 10/06/24 Loc: Room: [address] [place] [address] Type: ADM IN Attending Dr: Debbie Lundberg [...] study. Impression dictated by: Dwayne Coello Jr. DMannOMann10/08/2024 3:34 PM Dictation Location: [place] [address] Transcribed By: CALVIN 10/08/241533 Dictated By: Dwayne Coello Jr, 10/08/241532 Signed By: 10/08/24 153 Normal [facility] Ferritinon 10-08-2024 Ferritin [Mass/Vol] 35.0 ng/mL Normal 23.9-336.2 [facility] Comment on above: Performed By: #### C K, LIPASE, CBC, BMP, BNP, HEPATIC, HS TROP #### [facility] [address] [place] [address] [facility] Ferritin [Mass/volume] in Se rum or PlasmaOrdered By: Gerard Platt on 10-08-2024 Ferritin [Mass/Vol] Ferritin [Mass/volum e] in Serum or Plasma 23.9-336.2 [facility] Folate [Mass/volume] in Seru m or PlasmaOrdered By: Gerard Platt on 10-08-2024 Folate [Mass/Vol] Folate [Mass/volume] in Serum or Plasma >5.9 [facility] Comment on above: Folate reference ran ge: >5.9 ng/mlThe WHO technical consultation on folate and vitamin [id number] has determined that folate concentrations lessthan 4 ng/ml are considered deficient. Glucose Poct Glucometerson 1 12-09-2023 Glucose [Mass/Vol] 238 mg/dL Normal [facility] Comment on above: Result Comment: [place] Glucose Reference Range is dependent on time and content of last meal. Glucose of more than 200 mg/dL in a nonstressed, ambulatory subject supports the diagnosis of Diabetes Mellitus. PERFORMED BY: [address] [address] PATHOLOGIST SECUR[employer]ROL OFFICER VENUS NORIEGA M.D. Performed By: #### C K, LIPASE, CBC, BMP, BNP, HEPATIC, HS TROP #### [facility] [address] [place] [address] [facility] Commemt1 Glu2: Cleaned Meter Normal [facility] Comment on above: Result Comment: PERF ORMED BY: [facility] [address] [place] [address] PATHOLOGIST SEC[employer] OFFICER VENUS NORIEGA M.D. Performed By: #### C K, LIPASE, CBC, BMP, BNP, HEPATIC, HS TROP #### [address] Glucose [Mass/Vol] 151 mg/dL Normal [facility] Comment on above: Result Comment: [place] Glucose Reference Range is dependent on time and content of last meal. Glucose of more than 200 mg/dL in a nonstressed, ambulatory subject supports the diagnosis of Diabetes Mellitus. Performed By: #### C K, LIPASE, CBC, BMP, BNP, HEPATIC, HS TROP #### [address] Commemt1 Glu2: Cleaned Meter Normal [facility] Comment on above: Result Comment: PERF ORMED BY: [place] [address] PATHOLOGIST SEC[employer] OFFICER VENUS NORIEGA M.D. Performed By: #### C K, LIPASE, CBC, BMP, BNP, HEPATIC, HS TROP #### [address] Glucose [Mass/Vol] 138 mg/dL Normal [facility] Comment on above: Result Comment: [place] Glucose Reference Range is dependent on time and content of last meal. Glucose of more than 200 mg/dL in a nonstressed, ambulatory subject supports the diagnosis of Diabetes Mellitus. Performed By: #### C K, LIPASE, CBC, BMP, BNP, HEPATIC, HS TROP #### [address] Glucose [Mass/Vol] 173 mg/dL Normal [facility] Comment on above: Result Comment: [place] Glucose Reference Range is dependent on time and content of last meal. Glucose of more than 200 mg/dL in a nonstressed, ambulatory subject supports the diagnosis of Diabetes Mellitus. PERFORMED BY: [place] [address] PATHOLOGIST SEC[employer] OFFICER VENUS NORIEGA M.D. Performed By: #### C K, LIPASE, CBC, BMP, BNP, HEPATIC, HS TROP #### [address] Glucose [Mass/Vol] 139 mg/dL Normal [facility] Comment on above: Result Comment: [facility] Glucose Reference Range is dependent on time and content of last meal. Glucose of more than 200 mg/dL in a nonstressed, ambulatory subject supports the diagnosis of Diabetes Mellitus. PERFORMED BY: [place] [address] PATHOLOGIST SEC[employer] OFFICER VENUS NORIEGA M.D. Performed By: #### C K, LIPASE, CBC, BMP, BNP, HEPATIC, HS TROP #### [address] Iron [Mass/volume] in Serum or PlasmaOrdered By: Gerard Platt on 10-08-2024 Iron [Mass/Vol] Iron [Mass/volume] i n Serum or Plasma Low 50-212 [facility] Iron and TIBC Profileon 09-26 % Iron Saturation 11.3 % Low 20-50 [facility] Comment on above: Performed By: #### C K, LIPASE, CBC, BMP, BNP, HEPATIC, HS TROP #### [address] Iron [Mass/Vol] 34 ug/dL Low 50-212 [facility] Comment on above: Performed By: #### C K, LIPASE, CBC, BMP, BNP, HEPATIC, HS TROP #### [address] Total Iron Binding Capacity 302 ug/dL Normal 255-450 [facility] Comment on above: Performed By: #### C K, LIPASE, CBC, BMP, BNP, HEPATIC, HS TROP #### [address] Transferrin [Mass/Vol] 216 mg/dL Normal 203-362 [facility] Comment on above: Performed By: #### C K, LIPASE, CBC, BMP, BNP, HEPATIC, HS TROP #### [place] [id number] [place] Magnesiumon 10-08-2024 Magnesium [Mass/Vol] 1.7 mg/dL Low 1.9-2.7 [facility] Comment on above: Result Comment: PERF ORMED BY: [place] [id number] PATHOLOGIST SECURITY VEH[employer]LE [employer]ROL OFFICER VENUS NORIEGA M.D. Performed By: #### C K, LIPASE, CBC, BMP, BNP, HEPATIC, HS TROP #### [place] [id number] [facility] Magnesium [Mass/Vol] 1.7 mg/dL Low 1.9-2.7 [facility] Comment on above: Result Comment: PERF ORMED BY: [place] [id number] PATHOLOGIST SECUR[employer] OFFICER VENUS NORIEGA M.D. Performed By: #### C K, LIPASE, CBC, BMP, BNP, HEPATIC, HS TROP #### [place] [id number] [place] Sedimentation rate, automate don 10-08-2024 ESR (Bld) [Velocity] 14 mm/h 0 - 19 [facility] Serum or plasma iron binding capacity measurement (mass/volume)Ordered By: Gerard Platt on 10-08-2024 Iron binding capacity [Mass/Vol] Iron binding capacity [Mass/volume] in Serum or Plasma 255-450 [facility] Serum or plasma iron saturat ion measurement (mass fraction)Ordered By: Gerard Platt on 10-08-2024 Iron saturation [Mass fraction] Iron saturation [Mass Fraction] in Serum or Plasma Low 20-50 [facility] Transferrin [Mass/volume] in Serum or PlasmaOrdered By: Gerard Platt on 10-08-2024 Transferrin [Mass/Vol] Transferrin [Mass/volume] in Serum or Plasma 203-362 [facility] Vit. B12/Folate Profileon Cobalamin (Vitamin B12) [Mass/Vol] 490 pg/mL Normal 180-914 [facility] Comment on above: Performed By: #### C K, LIPASE, CBC, BMP, BNP, HEPATIC, HS TROP #### [address] Folate 10.2 ng/mL Normal >5.9 [facility] Comment on above: Result Comment: [place] reference range: >5.9 ng/ml The WHO technical consultation on folate and vitamin b12 deficiencies has determined that folate concentrations less than 4 ng/ml are considered deficient. PERFORMED BY: [place] [address] PATHOLOGIST SECURITY [employer] OFFICER VENUS NORIEGA M.D. Performed By: #### C K, LIPASE, CBC, BMP, BNP, HEPATIC, HS TROP #### [address] Vitamin B12 ser/plasOrdered By: Gerard Platt on 10-08-2024 Cobalamin (Vitamin B12) [Mass/Vol] Vitamin B12 ser/plas 180-914 [facility] Basic Metabolic Panelon 09-26 Anion gap [Moles/Vol] 14.3 mmol/L Normal 6.0-15.0 [facility] Comment on above: Performed By: #### C K, LIPASE, CBC, BMP, BNP, HEPATIC, HS TROP #### [address] Calcium [Mass/Vol] 9.2 mg/dL Normal 8.6-10.3 [facility] Comment on above: Performed By: #### C K, LIPASE, CBC, BMP, BNP, HEPATIC, HS TROP #### [address] Chloride [Moles/Vol] 102 mmol/L Normal 98-107 [facility] Comment on above: Performed By: #### C K, LIPASE, CBC, BMP, BNP, HEPATIC, HS TROP #### [address] CO2 [Moles/Vol] 24.9 mmol/L Normal 21.0-31.0 [facility] Comment on above: Performed By: #### C K, LIPASE, CBC, BMP, BNP, HEPATIC, HS TROP #### [address] Creatinine [Mass/Vol] 0.66 mg/dL Low 0.70-1.30 [facility] Comment on above: Performed By: #### C K, LIPASE, CBC, BMP, BNP, HEPATIC, HS TROP #### [address] Creatinine Clr Calc Pharmacy 94.64 Normal [facility] Comment on above: Performed By: #### C K, LIPASE, CBC, BMP, BNP, HEPATIC, HS TROP #### [address] GFR/1.73 sq M.predicted MDRD (S/P/Bld) [Vol rate/Area] mL/min/{1.73_m2} Normal [facility] Comment on above: Performed By: #### C K, LIPASE, CBC, BMP, BNP, HEPATIC, HS TROP #### [address] Glucose [Mass/Vol] 177 mg/dL High 70-100 [facility] Comment on above: Result Comment: [facility] Glucose Reference Range is dependent on time and content of last meal. Glucose of more than 200 mg/dL in a nonstressed, ambulatory subject supports the diagnosis of Diabetes Mellitus. ADA recommended reference range Performed By: #### C K, LIPASE, CBC, BMP, BNP, HEPATIC, HS TROP #### [address] Potassium [Moles/Vol] 4.2 mmol/L Normal 3.5-5.1 [facility] Comment on above: Performed By: #### C K, LIPASE, CBC, BMP, BNP, HEPATIC, HS TROP #### [address] Sodium [Moles/Vol] 137 mmol/L Normal 136-145 [facility] Comment on above: Performed By: #### C K, LIPASE, CBC, BMP, BNP, HEPATIC, HS TROP #### [address] Urea nitrogen [Mass/Vol] 33 mg/dL High 7-25 [facility] Comment on above: Performed By: #### C K, LIPASE, CBC, BMP, BNP, HEPATIC, HS TROP #### [address] Complete Blood Count Auto Di ffon 10-07-2024 Basophils (Bld) [#/Vol] 0.1 10*3/uL Normal 0.0-0.2 [facility] Comment on above: Result Comment: PERF ORMED BY: [place] [address] PATHOLOGIST SECURITY [employer] OFFICER VENUS NORIEGA M.D. Performed By: #### C K, LIPASE, CBC, BMP, BNP, HEPATIC, HS TROP #### [address] Basophils/100 WBC (Bld) 1.2 % Normal . [facility] Comment on above: Performed By: #### C K, LIPASE, CBC, BMP, BNP, HEPATIC, HS TROP #### [address] Eosinophils (Bld) [#/Vol] 0.1 10*3/uL Normal 0.0-0.45 [facility] Comment on above: Performed By: #### C K, LIPASE, CBC, BMP, BNP, HEPATIC, HS TROP #### [address] Eosinophils/100 WBC (Bld) 2.0 % Normal . [facility] Comment on above: Performed By: #### C K, LIPASE, CBC, BMP, BNP, HEPATIC, HS TROP #### [address] Erythrocyte distribution width (RBC) [Ratio] 17.6 % High 12.0-14.8 [facility] Comment on above: Performed By: #### C K, LIPASE, CBC, BMP, BNP, HEPATIC, HS TROP #### [address] Hematocrit (Bld) [Volume fraction] 32.0 % Low 38.8-50.0 [facility] Comment on above: Performed By: #### C K, LIPASE, CBC, BMP, BNP, HEPATIC, HS TROP #### [address] Hemoglobin (Bld) [Mass/Vol] 10.9 g/dL Low 13.0-17.0 [facility] Comment on above: Performed By: #### C K, LIPASE, CBC, BMP, BNP, HEPATIC, HS TROP #### [address] Lymphocytes (Bld) [#/Vol] 1.3 10*3/uL Normal 1.00-4.8 [facility] Comment on above: Performed By: #### C K, LIPASE, CBC, BMP, BNP, HEPATIC, HS TROP #### [address] Lymphocytes/100 WBC (Bld) 30.5 % Normal . [facility] Comment on above: Performed By: #### C K, LIPASE, CBC, BMP, BNP, HEPATIC, HS TROP #### [address] MCH (RBC) [Entitic mass] 28.2 pg Normal 27.5-35.2 [facility] Comment on above: Performed By: #### C K, LIPASE, CBC, BMP, BNP, HEPATIC, HS TROP #### [address] MCV (RBC) [Entitic vol] 82.7 fL Low 83.5-101 [facility] Comment on above: Performed By: #### C K, LIPASE, CBC, BMP, BNP, HEPATIC, HS TROP #### [address] Mean Corpuscular HGB Conc 34.2 g/dL Normal 32.5-35.6 [facility] Comment on above: Performed By: #### C K, LIPASE, CBC, BMP, BNP, HEPATIC, HS TROP #### [address] Monocytes (Bld) [#/Vol] 0.3 10*3/uL Normal 0.0-0.8 [facility] Comment on above: Performed By: #### C K, LIPASE, CBC, BMP, BNP, HEPATIC, HS TROP #### [address] Monocytes/100 WBC (Bld) 7.1 % Normal . [facility] Comment on above: Performed By: #### C K, LIPASE, CBC, BMP, BNP, HEPATIC, HS TROP #### [address] Neutrophils (Bld) [#/Vol] 2.5 10*3/uL Normal 1.8-7.7 [facility] Comment on above: Performed By: #### C K, LIPASE, CBC, BMP, BNP, HEPATIC, HS TROP #### [address] Neutrophils/100 WBC (Bld) 59.2 % Normal . [facility] Comment on above: Performed By: #### C K, LIPASE, CBC, BMP, BNP, HEPATIC, HS TROP #### [address] NRBC% 0.2 /100{WBC} Normal 0-0.5 [facility] Comment on above: Performed By: #### C K, LIPASE, CBC, BMP, BNP, HEPATIC, HS TROP #### [address] Platelet mean volume (Bld) [Entitic vol] 7.4 fL Normal 6.6-10.1 [facility] Comment on above: Performed By: #### C K, LIPASE, CBC, BMP, BNP, HEPATIC, HS TROP #### [place] [address] [place] Platelets (Bld) [#/Vol] 300 10*3/uL Normal 150-450 [facility] Comment on above: Performed By: #### C K, LIPASE, CBC, BMP, BNP, HEPATIC, HS TROP #### [place] [address] RBC (Bld) [#/Vol] 3.87 10*6/uL Low 3.90-5.60 [facility] Comment on above: Performed By: #### C K, LIPASE, CBC, BMP, BNP, HEPATIC, HS TROP #### [address] WBC (Bld) [#/Vol] 4.2 10*3/uL Normal 4.1-10.5 [facility] Comment on above: Performed By: #### C K, LIPASE, CBC, BMP, BNP, HEPATIC, HS TROP #### [address] Glucose Poct Glucometerson 1 12-08-2023 Glucose [Mass/Vol] 220 mg/dL Normal [facility] Comment on above: Result Comment: [place] Glucose Reference Range is dependent on time and content of last meal. Glucose of more than 200 mg/dL in a nonstressed, ambulatory subject supports the diagnosis of Diabetes Mellitus. PERFORMED BY: [place] [address] PATHOLOGIST SECURITY [employer] OFFICER VENUS NORIEGA M.D. Performed By: #### C K, LIPASE, CBC, BMP, BNP, HEPATIC, HS TROP #### [address] Glucose [Mass/Vol] 267 mg/dL Normal [facility] Comment on above: Result Comment: [place] Glucose Reference Range is dependent on time and content of last meal. Glucose of more than 200 mg/dL in a nonstressed, ambulatory subject supports the diagnosis of Diabetes Mellitus. PERFORMED BY: [place] [address] PATHOLOGIST SECURITY [employer]LE [employer]ROL OFFICER VENUS NORIEGA M.D. Performed By: #### C K, LIPASE, CBC, BMP, BNP, HEPATIC, HS TROP #### [address] Glucose [Mass/Vol] 216 mg/dL Normal [facility] Comment on above: Result Comment: [place] Glucose Reference Range is dependent on time and content of last meal. Glucose of more than 200 mg/dL in a nonstressed, ambulatory subject supports the diagnosis of Diabetes Mellitus. PERFORMED BY: [place] [address] PATHOLOGIST SECURITY VEH[employer]LE [employer]ROL OFFICER VENUS NORIEGA M.D. Performed By: #### C K, LIPASE, CBC, BMP, BNP, HEPATIC, HS TROP #### [address] Glucose [Mass/Vol] 151 mg/dL Normal [facility] Comment on above: Result Comment: [place] Glucose Reference Range is dependent on time and content of last meal. Glucose of more than 200 mg/dL in a nonstressed, ambulatory subject supports the diagnosis of Diabetes Mellitus. PERFORMED BY: [address] [place] [address] PATHOLOGIST SECURITY VEH[employer]LE PATROL OFFICER VENUS NORIEGA M.D. Performed By: #### C K, LIPASE, CBC, BMP, BNP, HEPATIC, HS TROP #### [place] [id number] [facility] Magnesiumon 10-07-2024 Magnesium [Mass/Vol] 1.9 mg/dL Normal 1.9-2.7 [facility] Comment on above: Result Comment: PERF ORMED BY: [place] [address] PATHOLOGIST SEC[employer] OFFICER VENUS NORIEGA M.D. Performed By: #### C K, LIPASE, CBC, BMP, BNP, HEPATIC, HS TROP #### [place] [id number] [facility] Appearance of UrineOrdered B y: Tori Morris on 10-06-2024 Appearance (U) Urine appearance Abnormal Clear [facility] B-Type Natriuretic Peptideon 10-06-2024 Natriuretic peptide B (Bld) [Mass/Vol] 17.0 pg/mL Normal 5-100 [facility] Comment on above: Result Comment: PERF ORMED BY: [address] [place] [address] PATHOLOGIST SEC[employer] OFFICER VENUS NORIEGA M.D. Performed By: #### C K, LIPASE, CBC, BMP, BNP, HEPATIC, HS TROP #### [address] Bacteria [Presence] in Urine by AutomatedOrdered By: Tori Morris on 10-06-2024 Bacteria Auto Ql (U) Bacteria [Presence] in Urine by Automated None Seen [facility] Basic Metabolic Panelon 09-26 Anion gap [Moles/Vol] 14.7 mmol/L Normal 6.0-15.0 [facility] Comment on above: Performed By: #### C K, LIPASE, CBC, BMP, BNP, HEPATIC, HS TROP #### [address] Calcium [Mass/Vol] 9.5 mg/dL Normal 8.6-10.3 [facility] Comment on above: Performed By: #### C K, LIPASE, CBC, BMP, BNP, HEPATIC, HS TROP #### [place] [address] [place] Chloride [Moles/Vol] 102 mmol/L Normal 98-107 [facility] Comment on above: Performed By: #### C K, LIPASE, CBC, BMP, BNP, HEPATIC, HS TROP #### [place] [address] [place] CO2 [Moles/Vol] 24.7 mmol/L Normal 21.0-31.0 [facility] Comment on above: Performed By: #### C K, LIPASE, CBC, BMP, BNP, HEPATIC, HS TROP #### [place] [address] [place] Creatinine [Mass/Vol] 0.68 mg/dL Low 0.70-1.30 [facility] Comment on above: Performed By: #### C K, LIPASE, CBC, BMP, BNP, HEPATIC, HS TROP #### [place] [address] [place] Creatinine Clr Calc Pharmacy 97.56 Normal [facility] Comment on above: Performed By: #### C K, LIPASE, CBC, BMP, BNP, HEPATIC, HS TROP #### [place] [address] [place] GFR/1.73 sq M.predicted MDRD (S/P/Bld) [Vol rate/Area] mL/min/{1.73_m2} Normal [facility] Comment on above: Performed By: #### C K, LIPASE, CBC, BMP, BNP, HEPATIC, HS TROP #### [address] Glucose [Mass/Vol] 197 mg/dL High 70-100 [facility] Comment on above: Result Comment: [facility] Glucose Reference Range is dependent on time and content of last meal. Glucose of more than 200 mg/dL in a nonstressed, ambulatory subject supports the diagnosis of Diabetes Mellitus. ADA recommended reference range Performed By: #### C K, LIPASE, CBC, BMP, BNP, HEPATIC, HS TROP #### [address] Potassium [Moles/Vol] 4.4 mmol/L Normal 3.5-5.1 [facility] Comment on above: Performed By: #### C K, LIPASE, CBC, BMP, BNP, HEPATIC, HS TROP #### [address] Sodium [Moles/Vol] 137 mmol/L Normal 136-145 [facility] Comment on above: Performed By: #### C K, LIPASE, CBC, BMP, BNP, HEPATIC, HS TROP #### [address] Urea nitrogen [Mass/Vol] 34 mg/dL High 7-25 [facility] Comment on above: Performed By: #### C K, LIPASE, CBC, BMP, BNP, HEPATIC, HS TROP #### [address] Bilirubin Test strip Ql (U)O rdered By: Tori Morris on 10-06-2024 Bilirubin Ql (U) Bilirubin.total [Presence] in Urine by Test strip Negative [facility] Comment on above: Unable to obtain acc urate result due to color interference. Bilirubin.direct [Mass/volum e] in Serum or PlasmaOrdered By: Tori Morris on 10-06-2024 Bilirubin.direct [Mass/Vol] Bilirubin.direct [Mass/volume] in Serum or Plasma 0.03-0.18 [facility] BioFire Not Detectedon 10-06 BioFire Not Detected Not detected Normal Not Detecte [facility] Comment on above: Result Comment: This is a duplicate RP2.1 COVID (PCR) result to be used for statistical tracking purpose only. PERFORMED BY: [place] [address] PATHOLOGIST SEC[employer] OFFICER VENUS NORIEGA M.D. Performed By: #### C K, LIPASE, CBC, BMP, BNP, HEPATIC, HS TROP #### [address] Blood Cultureon 10-06-2024 Bacteria identified Cx Nom (Bld) NO GROWTH 5 DAYS PERFORMED BY: [place] [address] PATHOLOGIST SEC[employer] OFFICER VENUS NORIEGA M.D. Normal [facility] Comment on above: Performed By: #### C K, LIPASE, CBC, BMP, BNP, HEPATIC, HS TROP #### [address] Bacteria identified Cx Nom (Bld) NO GROWTH 5 DAYS PERFORMED BY: [place] [address] PATHOLOGIST SEC[employer]ITY [employer]ROL OFFICER VENUS NORIEGA M.D. Normal [facility] Comment on above: Performed By: #### C K, LIPASE, CBC, BMP, BNP, HEPATIC, HS TROP #### [address] COVID-19 Detected/Not Detect edOrdered By: Tori Morris on 10-06-2024 SARS-CoV-2 (COVID-19) RNA KOSTA+non-probe Ql (Nph) Not detected Not Detecte [facility] Comment on above: This is a duplicate RP2.1 COVID (PCR) result to be used for statistical tracking purpose only. CT abdomen pelvis w conon CT abdomen pelvis w con [facility] [place] [address] [address] [place], [place] [id number] CT Scan Report Signed Patient: Vashti Massey MR#: [id number] : 1955 Acct:[id number] Age/Sex: 69 / M ADM Date: 10/06/24 Loc: ER Room: Type: [facility] ER Attending Dr: Copies to: Tori Morris [...] excluded. Impression dictated by: Dwayne Coello Jr., D.O.10/06/2024 8:10 PM Dictation Location: [facility]--18 Transcribed By: PWS 10/06/242009 Dictated By: Dwayne Coello Jr, DO 10/06/242004 Signed By: 10/06/242009 Normal [facility] Color Auto (U)Ordered By: Leonard Morris on 10-06-2024 Color (U) Color of Urine by Auto Abnormal Yellow Fi [facility] Complete Blood Count Auto Di ffon 10-06-2024 Basophils (Bld) [#/Vol] 0.1 10*3/uL Normal 0.0-0.2 [facility] Comment on above: Result Comment: PERF ORMED BY: [place] [address] PATHOLOGIST SECURITY [employer]ROL OFFICER VENUS NORIEGA M.D. Performed By: #### C K, LIPASE, CBC, BMP, BNP, HEPATIC, HS TROP #### [address] Basophils/100 WBC (Bld) 1.1 % Normal . [facility] Comment on above: Performed By: #### C K, LIPASE, CBC, BMP, BNP, HEPATIC, HS TROP #### [address] Eosinophils (Bld) [#/Vol] 0.1 10*3/uL Normal 0.0-0.45 [facility] Comment on above: Performed By: #### C K, LIPASE, CBC, BMP, BNP, HEPATIC, HS TROP #### [address] Eosinophils/100 WBC (Bld) 2.1 % Normal . [facility] Comment on above: Performed By: #### C K, LIPASE, CBC, BMP, BNP, HEPATIC, HS TROP #### [address] Erythrocyte distribution width (RBC) [Ratio] 17.7 % High 12.0-14.8 [facility] Comment on above: Performed By: #### C K, LIPASE, CBC, BMP, BNP, HEPATIC, HS TROP #### [address] Hematocrit (Bld) [Volume fraction] 33.5 % Low 38.8-50.0 [facility] Comment on above: Performed By: #### C K, LIPASE, CBC, BMP, BNP, HEPATIC, HS TROP #### [address] Hemoglobin (Bld) [Mass/Vol] 11.2 g/dL Low 13.0-17.0 [facility] Comment on above: Performed By: #### C K, LIPASE, CBC, BMP, BNP, HEPATIC, HS TROP #### [address] Lymphocytes (Bld) [#/Vol] 1.3 10*3/uL Normal 1.00-4.8 [facility] Comment on above: Performed By: #### C K, LIPASE, CBC, BMP, BNP, HEPATIC, HS TROP #### [address] Lymphocytes/100 WBC (Bld) 26.1 % Normal . [facility] Comment on above: Performed By: #### C K, LIPASE, CBC, BMP, BNP, HEPATIC, HS TROP #### [address] MCH (RBC) [Entitic mass] 27.7 pg Normal 27.5-35.2 [facility] Comment on above: Performed By: #### C K, LIPASE, CBC, BMP, BNP, HEPATIC, HS TROP #### [address] MCV (RBC) [Entitic vol] 82.5 fL Low 83.5-101 [facility] Comment on above: Performed By: #### C K, LIPASE, CBC, BMP, BNP, HEPATIC, HS TROP #### [address] Mean Corpuscular HGB Conc 33.5 g/dL Normal 32.5-35.6 [facility] Comment on above: Performed By: #### C K, LIPASE, CBC, BMP, BNP, HEPATIC, HS TROP #### [place] [address] [place] Monocytes (Bld) [#/Vol] 0.3 10*3/uL Normal 0.0-0.8 [facility] Comment on above: Performed By: #### C K, LIPASE, CBC, BMP, BNP, HEPATIC, HS TROP #### [place] [address] [place] Monocytes/100 WBC (Bld) 17.55 % Normal 0.00-20.00 [facility] Comment on above: Performed By: #### C K, LIPASE, CBC, BMP, BNP, HEPATIC, HS TROP #### [place] [address] [place] Monocytes/100 WBC (Bld) 6.5 % Normal . [facility] Comment on above: Performed By: #### C K, LIPASE, CBC, BMP, BNP, HEPATIC, HS TROP #### [address] Neutrophils (Bld) [#/Vol] 3.3 10*3/uL Normal 1.8-7.7 [facility] Comment on above: Performed By: #### C K, LIPASE, CBC, BMP, BNP, HEPATIC, HS TROP #### [address] Neutrophils/100 WBC (Bld) 64.2 % Normal . [facility] Comment on above: Performed By: #### C K, LIPASE, CBC, BMP, BNP, HEPATIC, HS TROP #### [place] [address] [place] NRBC% 0.1 /100{WBC} Normal 0-0.5 [facility] Comment on above: Performed By: #### C K, LIPASE, CBC, BMP, BNP, HEPATIC, HS TROP #### [address] Platelet mean volume (Bld) [Entitic vol] 7.3 fL Normal 6.6-10.1 [facility] Comment on above: Performed By: #### C K, LIPASE, CBC, BMP, BNP, HEPATIC, HS TROP #### [facility] [address] Platelets (Bld) [#/Vol] 324 10*3/uL Normal 150-450 [facility] Comment on above: Performed By: #### C K, LIPASE, CBC, BMP, BNP, HEPATIC, HS TROP #### [facility] [address] [place] [address] [place] RBC (Bld) [#/Vol] 4.07 10*6/uL Normal 3.90-5.60 [facility] Comment on above: Performed By: #### C K, LIPASE, CBC, BMP, BNP, HEPATIC, HS TROP #### [facility] [address] WBC (Bld) [#/Vol] 5.2 10*3/uL Normal 4.1-10.5 [facility] Comment on above: Performed By: #### C K, LIPASE, CBC, BMP, BNP, HEPATIC, HS TROP #### [facility] [address] Creatine Kinaseon 10-06-2024 CK [Catalytic activity/Vol] 10 U/L Low 30-223 [facility] Comment on above: Performed By: #### C K, LIPASE, CBC, BMP, BNP, HEPATIC, HS TROP #### [facility] [address] Creatine kinase [Enzymatic a ctivity/volume] in Serum or PlasmaOrdered By: Tori Morris on 10-06-2024 CK [Catalytic activity/Vol] Creatine kinase [Enzymatic activity/volume] in Serum or Plasma Low 30-223 [facility] Dipstick and Microscopicon 1 12-07-2023 Appearance (U) Turbid Critically abnormal Clear [facility] Comment on above: Order Comment: Name Collection Type:: Cyr Catheter Performed By: #### C K, LIPASE, CBC, BMP, BNP, HEPATIC, HS TROP #### [address] Bacteria,Urine None Seen Normal None Seen [facility] Comment on above: Order Comment: Name Collection Type:: Cyr Catheter Performed By: #### C K, LIPASE, CBC, BMP, BNP, HEPATIC, HS TROP #### [facility] [address] Bilirubin,Urine Negative Normal Negative [facility] Comment on above: Order Comment: Name Collection Type:: Cyr Catheter Result Comment: Unab le to obtain accurate result due to color interference. Performed By: #### C K, LIPASE, CBC, BMP, BNP, HEPATIC, HS TROP #### [facility] [address] Color (U) Red Critically abnormal Yellow [facility] Comment on above: Order Comment: Name Collection Type:: Cyr Catheter Performed By: #### C K, LIPASE, CBC, BMP, BNP, HEPATIC, HS TROP #### [facility] [address] Glucose Ql (U) Normal Normal Normal [facility] Comment on above: Order Comment: Name Collection Type:: Cyr Catheter Result Comment: Unab le to obtain accurate result due to color interference. Performed By: #### C K, LIPASE, CBC, BMP, BNP, HEPATIC, HS TROP #### [address] Hyaline Casts,Urine None Normal 0-8 [facility] Comment on above: Order Comment: Name Collection Type:: Cyr Catheter Performed By: #### C K, LIPASE, CBC, BMP, BNP, HEPATIC, HS TROP #### [facility] [address] [place] [address] [place] Ketones Ql (U) Negative Normal Negative [facility] Comment on above: Order Comment: Name Collection Type:: Cyr Catheter Result Comment: Unab le to obtain accurate result due to color interference. Performed By: #### C K, LIPASE, CBC, BMP, BNP, HEPATIC, HS TROP #### [address] Leukocyte esterase Test strip Ql (U) 2+ High Negative [facility] Comment on above: Order Comment: Name Collection Type:: Cyr Catheter Result Comment: Unab le to obtain accurate result due to color interference. Performed By: #### C K, LIPASE, CBC, BMP, BNP, HEPATIC, HS TROP #### [address] Mucus,Urine 2+ Critically abnormal [facility] Comment on above: Order Comment: Name Collection Type:: Cyr Catheter Result Comment: PERF ORMED BY: [place] [address] PATHOLOGIST SECURITY VEH[employer]LE PATROL OFFICER VENUS NORIEGA M.D. Performed By: #### C K, LIPASE, CBC, BMP, BNP, HEPATIC, HS TROP #### [address] Nitrite,Urine Negative Normal Negative [facility] Comment on above: Order Comment: Name Collection Type:: Cyr Catheter Result Comment: Unab le to obtain accurate result due to color interference. Unable to obtain accurate result due to color interference. Performed By: #### C K, LIPASE, CBC, BMP, BNP, HEPATIC, HS TROP #### [address] Occult Blood,Urine 3+ High Negative [facility] Comment on above: Order Comment: Name Collection Type:: Cyr Catheter Result Comment: Unab le to obtain accurate result due to color interference. Performed By: #### C K, LIPASE, CBC, BMP, BNP, HEPATIC, HS TROP #### [address] pH (U) 7.0 [pH] Normal 5.0-9.0 [facility] Comment on above: Order Comment: Name Collection Type:: Cyr Catheter Result Comment: Unab le to obtain accurate result due to color interference. Performed By: #### C K, LIPASE, CBC, BMP, BNP, HEPATIC, HS TROP #### [address] Protein (U) [Mass/Vol] 200 mg/dL High Negative [facility] Comment on above: Order Comment: Name Collection Type:: Cyr Catheter Result Comment: Unab le to obtain accurate result due to color interference. Performed By: #### C K, LIPASE, CBC, BMP, BNP, HEPATIC, HS TROP #### [address] RBC,Urine Innumerable High 0-4 [facility] Comment on above: Order Comment: Name Collection Type:: Cyr Catheter Performed By: #### C K, LIPASE, CBC, BMP, BNP, HEPATIC, HS TROP #### [facility] [address] Specificy [place],Urine 1.005 Normal 1.001-1.03 0 [facility] Comment on above: Order Comment: Name Collection Type:: Cyr Catheter Performed By: #### C K, LIPASE, CBC, BMP, BNP, HEPATIC, HS TROP #### [address] Urobilinogen,Urine Normal Normal Normal [facility] Comment on above: Order Comment: Name Collection Type:: Cyr Catheter Result Comment: Unab le to obtain accurate result due to color interference. Performed By: #### C K, LIPASE, CBC, BMP, BNP, HEPATIC, HS TROP #### [address] WBC CLUMP, Urine Many High None Seen [facility] Comment on above: Order Comment: Name Collection Type:: Cyr Catheter Performed By: #### C K, LIPASE, CBC, BMP, BNP, HEPATIC, HS TROP #### [address] WBC,Urine Innumerable High 0-4 [facility] Comment on above: Order Comment: Name Collection Type:: Cyr Catheter Performed By: #### C K, LIPASE, CBC, BMP, BNP, HEPATIC, HS TROP #### [address] ECG 12 lead ECGon 10-06-2024 ECG 12 lead ECG [facility] [place] [address] [place] [address] Electrocardiograph Report Signed Patient: Vashti Massey MR#: [id number] : 1955 Acct:[id number] Age/Sex: 69 / M ADM Date: 10/06/24 [...] ms Normal sinus rhythm Confirmed by Tori Mroris MD ([id number]) on 10/06/2024 5:32:21 PM Referred By: Electronically Signed By: Tori Morris MD Transcribed By: MUS Signed By Tori Morris MD 09/26 11/19 1731 Normal [facility] Epithelial cells.squamous [# /area] in Urine sediment by Automated countOrdered By: Tori Morris on 10-06-2024 Epithelial cells.squamous Auto (Urine sed) [#/Area] Epithelial cells.squamous [#/area] in Urine sediment by Automated count [facility] Erythrocytes [#/area] in Uri ne sediment by Automated countOrdered By: Tori Morris on 10-06-2024 RBC Auto (Urine sed) [#/Area] Erythrocytes [#/area] in Urine sediment by Automated count High 0-4 [facility] Glucose Poct Glucometerson 1 12-07-2023 Glucose [Mass/Vol] 174 mg/dL Normal [facility] Comment on above: Result Comment: [facility] Glucose Reference Range is dependent on time and content of last meal. Glucose of more than 200 mg/dL in a nonstressed, ambulatory subject supports the diagnosis of Diabetes Mellitus. PERFORMED BY: [facility] [address] [place] [address] PATHOLOGIST SECURITY VEH[employer] PATROL OFFICER VENUS NORIEGA M.D. Performed By: #### C K, LIPASE, CBC, BMP, BNP, HEPATIC, HS TROP #### [facility] [address] Glucose [Mass/volume] in Uri ne by Test stripOrdered By: Tori Morris on 10-06-2024 Glucose Test strip (U) [Mass/Vol] Glucose [Mass/volume] in Urine by Test strip Normal [facility] Comment on above: Unable to obtain acc urate result due to color interference. Hemoglobin Test strip Ql (U) Ordered By: Tori Morris on 10-06-2024 Hemoglobin Ql (U) Hemoglobin [Presence ] in Urine by Test strip High Negative [facility] Comment on above: Unable to obtain acc urate result due to color interference. Hepatic Panelon 10-06-2024 Albumin [Mass/Vol] 4.0 g/dL Normal 3.5-5.7 [facility] Comment on above: Performed By: #### C K, LIPASE, CBC, BMP, BNP, HEPATIC, HS TROP #### [facility] [address] Albumin/Globulin [Mass ratio] 1.5 {ratio} Normal [facility] Comment on above: Performed By: #### C K, LIPASE, CBC, BMP, BNP, HEPATIC, HS TROP #### [place] [address] [place] ALP [Catalytic activity/Vol] 67 U/L Normal 34-104 [facility] Comment on above: Performed By: #### C K, LIPASE, CBC, BMP, BNP, HEPATIC, HS TROP #### [place] [address] [place] ALT [Catalytic activity/Vol] 9 U/L Normal 7-52 [facility] Comment on above: Performed By: #### C K, LIPASE, CBC, BMP, BNP, HEPATIC, HS TROP #### [place] [address] [place] AST [Catalytic activity/Vol] 9 U/L Low 13-39 [facility] Comment on above: Performed By: #### C K, LIPASE, CBC, BMP, BNP, HEPATIC, HS TROP #### [facility] [address] [place] [address] [place] Bilirubin [Mass/Vol] 0.6 mg/dL Normal 0.3-1.0 [facility] Comment on above: Performed By: #### C K, LIPASE, CBC, BMP, BNP, HEPATIC, HS TROP #### [facility] [address] Bilirubin,Indirect 0.5 mg/dL Normal [facility] Comment on above: Performed By: #### C K, LIPASE, CBC, BMP, BNP, HEPATIC, HS TROP #### [facility] [address] Bilirubin.indirect [Mass/Vol] 0.10 mg/dL Normal 0.03-0.18 [facility] Comment on above: Performed By: #### C K, LIPASE, CBC, BMP, BNP, HEPATIC, HS TROP #### [facility] [address] Globulin (S) [Mass/Vol] 2.7 g/dL Normal [facility] Comment on above: Performed By: #### C K, LIPASE, CBC, BMP, BNP, HEPATIC, HS TROP #### [facility] [address] Protein [Mass/Vol] 6.7 g/dL Normal 6.4-8.9 [facility] Comment on above: Performed By: #### C K, LIPASE, CBC, BMP, BNP, HEPATIC, HS TROP #### [facility] [address] Hyaline casts [#/area] in Ur ine sediment by Automated countOrdered By: Tori Morris on 10-06-2024 Hyaline casts Auto (Urine sed) [#/Area] Hyaline casts [#/area] in Urine sediment by Automated count 0-8 [facility] INR in Platelet poor plasma by Coagulation assayOrdered By: Tori Morris on 10-06-2024 INR Coag (PPP) [Relative time] INR in Platelet poor plasma by Coagulation assay [facility] Comment on above: INR Therapeutic Rang e [...] i n Urine by Test strip Negative [facility] Comment on above: Unable to obtain acc urate result due to color interference. Laboratory - Microbiology an d Antimicrobial susceptibilityOrdered By: Tori Morris on 10-06-2024 Bacteria identified Cx Nom (Bld) NO GROWTH 5 DAYS [facility] Bacteria identified Cx Nom (Bld) NO GROWTH 5 DAYS [facility] Lactate [Moles/volume] in Se rum or PlasmaOrdered By: Tori Morris on 10-06-2024 Lactate [Moles/Vol] Lactate [Moles/volum e] in Serum or Plasma 0.5-2.2 [facility] Lactic Acidon 10-06-2024 Lactate [Moles/Vol] 1.2 mmol/L Normal 0.5-2.2 [facility] Comment on above: Result Comment: PERF ORMED BY: [place] [address] PATHOLOGIST SEC[employer]ITY [employer]ROL OFFICER VENUS NORIEGA M.D. Performed By: #### C K, LIPASE, CBC, BMP, BNP, HEPATIC, HS TROP #### [address] Leukocyte clumps [Presence] in Urine by AutomatedOrdered By: Tori Morris on 10-06-2024 Leukocyte clumps Auto Ql (U) Leukocyte clumps [Presence] in Urine by Automated High None Seen [facility] Leukocyte esterase [Presence ] in Urine by Test stripOrdered By: Tori Morris on 10-06-2024 Leukocyte esterase Test strip Ql (U) Leukocyte esterase [Presence] in Urine by Test strip High Negative [facility] Comment on above: Unable to obtain acc urate result due to color interference. Leukocytes [#/area] in Urine sediment by Automated countOrdered By: Tori Morris on 10-06-2024 WBC Auto (Urine sed) [#/Area] Leukocytes [#/area] in Urine sediment by Automated count High 0-4 [facility] Lipaseon 10-06-2024 Lipase [Catalytic activity/Vol] 12.0 U/L Normal 11.0-82.0 [facility] Comment on above: Result Comment: PERF ORMED BY: [place] [address] PATHOLOGIST SEC[employer]ITY [employer]ROL OFFICER VENUS NORIEGA M.D. Performed By: #### C K, LIPASE, CBC, BMP, BNP, HEPATIC, HS TROP #### [address] Lipase [Enzymatic activity/v olume] in Serum or PlasmaOrdered By: Tori Morris on 10-06-2024 Lipase [Catalytic activity/Vol] Lipase [Enzymatic activity/volume] in Serum or Plasma 11.0-82.0 [facility] Monocyte distribution width [Entitic volume] in Blood by AutomatedOrdered By: Troi Morris on 10-06-2024 Monocyte distribution width Auto (Bld) [Entitic vol] Monocyte distribution width [Entitic volume] in Blood by Automated 0.00-20.00 [facility] Mucus [Presence] in Urine by AutomatedOrdered By: Tori Morris on 10-06-2024 Mucus Auto Ql (U) Mucus [Presence] in Urine by Automated Abnormal [facility] Natriuretic peptide B [Mass/ Vol]Ordered By: Tori Morris on 10-06-2024 Natriuretic peptide B (Bld) [Mass/Vol] BNP ser/plas 5-100 [facility] Nitrite Test strip Ql (U)Ord ered By: Tori Morris on 10-06-2024 Nitrite Ql (U) Nitrite [Presence] i n Urine by Test strip Negative [facility] Comment on above: Unable to obtain acc urate result due to color interference. Unable to obtain accurate result due to color interference. Protein Test strip (U) [Mass /Vol]Ordered By: Tori Morris on 10-06-2024 Protein (U) [Mass/Vol] Protein [Mass/vol ume] in Urine by Test strip High Negative [facility] Comment on above: Unable to obtain acc urate result due to color interference. Prothrombin Time INRon 10-06 INR Coag (PPP) [Relative time] 1.2 {INR} Normal [facility] Comment on above: Result Comment: [...] heart valves: 3 - 4.5 PERFORMED BY: [place] [address] PATHOLOGIST SEC[employer]ITY [employer]ROL OFFICER VENUS NORIEGA M.D. Performed By: #### C K, LIPASE, CBC, BMP, BNP, HEPATIC, HS TROP #### [facility] [address] [place] [address] [facility] PT Coag (PPP) [Time] 13.5 s High 9.0-12.9 [facility] Comment on above: Result Comment: A he matocrit value greater than 55% may lead to inaccurate results in coagulation testing. Patients having hematocrit values >55% require a special collection tube for coagulation studies. Please contact the laboratory at [phone] for redraw instructions. Performed By: #### C K, LIPASE, CBC, BMP, BNP, HEPATIC, HS TROP #### [facility] [address] [place] [address] [facility] Prothrombin time (PT)Ordered By: Tori Morris on 10-06-2024 PT Coag (PPP) [Time] Prothrombin time (PT) High 9.0- 12.9 [facility] Comment on above: A hematocrit value g reater than 55% may lead to inaccurate results in coagulation testing. Patients having hematocrit values >55% require a special collection tube for coagulation studies. Please contact the laboratory at [phone] for redraw instructions. Respiratory (Upper) Panel, P [...] A H3 Blank Space -------- PERFORMED BY: [facility] [address] [place] [address] PATHOLOGIST SECUR[employer] VEH[employer]ROL OFFICER VENUS NORIEGA M.D. Normal [facility] Comment on above: Performed By: #### C K, LIPASE, CBC, BMP, BNP, HEPATIC, HS TROP #### [facility] [address] Respiratory pathogens DNA an d RNA panel - Nasopharynx by [facility] with non-probe detectionOrdered By: Tori Morris on 10-06-2024 Respiratory pathogens DNA and RNA panel [facility]+non-probe (Nph) Respiratory pathogens DNA and RNA panel - Nasopharynx by [facility] with non-probe detection [facility] Serum or plasma non-glucuron idated bilirubin measurement (mass/volume)Ordered By: Tori Morris on 10-06-2024 Bilirubin.indirect [Mass/Vol] Serum or plasma non-glucuronidated bilirubin measurement (mass/volume) [facility] Specific gravity Test strip (U) [Rel density]Ordered By: Tori Morris on 10-06-2024 Specific gravity (U) [Rel density] Specific gravity of Urine by Test strip 1.001-1.03 0 [facility] Troponin I High Sensitivityo n 10-06-2024 Troponin I High Sensitivity 4.1 pg/mL Normal 0.0-20.0 [facility] Comment on above: Result Comment: PERF ORMED BY: [facility] [address] [place] [address] PATHOLOGIST SEC[employer]ROL OFFICER VENUS NORIEGA M.D. Performed By: #### H S TROP #### [facility] [address] [place] [id number] [facility] Troponin I High Sensitivity 4.1 pg/mL Normal 0.0-20.0 [facility] Comment on above: Result Comment: PERF ORMED BY: [facility] [address] [place] [address] PATHOLOGIST SEC[employer] PATROL OFFICER VENUS NORIEGA M.D. Performed By: #### C K, LIPASE, CBC, BMP, BNP, HEPATIC, HS TROP #### [facility] [address] [place] [address] [facility] Troponin I.cardiac [Mass/vol ume] in Serum or Plasma by Detection limit <= 0.01 ng/Ordered By: Tori Morris on 10-06-2024 Troponin I.cardiac DL <= 0.01 ng/mL [Mass/Vol] Troponin I.cardiac [Mass/volume] in Serum or Plasma by Detection limit <= 0.01 ng/ 0.0-20.0 [facility] Urine Cultureon 10-06-2024 Bacteria identified Cx Nom (U) ESBL results called at 0907 on 10/09/24 ORGANISM: Klebsiella pneumoniae (ESBL) (O:KLEPNEESBL) [place] Count >100,000 ORGANISM: Providencia stuartii (O:PROSTU) [place] Count 75,000 Aerobic CAROLIN Charge ([id number]) -- [...] RESISTANT TO ALL B-LACTAM DRUGS. PERFORMED BY: [place] [address] [place] [address] PATHOLOGIST SECUR[employer] VEHIC[employer] PATROL OFFICER VENUS NORIEGA M.D. Normal [facility] Comment on above: Performed By: #### C K, LIPASE, CBC, BMP, BNP, HEPATIC, HS TROP #### [facility] [address] [place] [id number] [facility] Urine cultureOrdered By: Norris Morris on 10-06-2024 Bacteria identified Cx Nom (U) Abnormal [facility] Bacteria identified Cx Nom (U) Abnormal [facility] Urobilinogen Test strip (U) [Mass/Vol]Ordered By: Tori Morris on 10-06-2024 Urobilinogen (U) [Mass/Vol] Urobilinogen [Mass/volume] in Urine by Test strip Normal [facility] Comment on above: Unable to obtain acc urate result due to color interference. XR chest 2V*on 10-06-2024 XR chest 2V* [facility] [place] [address] [place] [address] XRay Report Signed Patient: Vashti Massey MR#: [id number] : 1955 Acct:[id number] Age/Sex: 69 / M ADM Date: 10/06/24 Loc: ER Room: Type: [facility] ER Attending Dr: Copies to: Tori Morris [...] Coello Jr., D.OMann10/06/2024 8:05 PM Dictation Location: [place] [address] Transcribed By: [facility] 10/06/242004 Dictated By: Dwayne Coello Jr, DO 10/06/242004 Signed By: 10/06/242004 Normal [facility] pH Test strip (U)Ordered By: Tori Morris on 10-06-2024 pH (U) pH of Urine by Test strip 5.0-9.0 [facility] Basic metabolic 2000 panelon 10-05-2024 Anion gap [Moles/Vol] 14 mmol/L 10 - 2 0 mmol/L [facility] Calcium [Mass/Vol] 9.5 mg/dL 8.6 - 10. 3 mg/dL [facility] Chloride [Moles/Vol] 101 mmol/L 98 - 10 7 mmol/L [facility] CO2 [Moles/Vol] 27 mmol/L 21 - 32 mmol/L [facility] Creatinine [Mass/Vol] 0.6 mg/dL 0.50 - 1.30 mg/dL [facility] eGFR - PINF [facility] Comment on above: Calculations of bartolome mated GFR are performed using the 2020 CKD-EPI Study Refit equation without the race variable for the IDMS-Traceable creatinine methods. https://jasn.asnjournals.org/content//ASN.80581 50666 Glucose [Mass/Vol] 157 mg/dL High 74 - 99 mg/dL [facility] Interpretation and review of laboratory results Abnormal [facility] Potassium [Moles/Vol] 4.1 mmol/L 3.5 - 5.3 mmol/L [facility] Sodium [Moles/Vol] 138 mmol/L 136 - 145 mmol/L [facility] Urea nitrogen [Mass/Vol] 22 mg/dL 6 - 23 mg/dL [facility] Anion gap [Moles/Vol] 14 mmol/L Normal 10-20 [facility] Comment on above: Performed By: #### 1 9123-9 #### OLESYA CAIN ([id number]) [facility] ([facility]) [address] [place] [address] Calcium [Mass/Vol] 9.5 mg/dL Normal 8.6-10.3 [facility] Comment on above: Performed By: #### 1 9123-9 #### OLESYA CAIN ([id number]) [facility] ([facility]) [address] [place] [address] Chloride [Moles/Vol] 101 mmol/L Normal 98-107 [facility] Comment on above: Performed By: #### 1 9123-9 #### OLESYA CAIN ([id number]) [facility] ([facility]) [address] [place] [address] CO2 [Moles/Vol] 27 mmol/L Normal 21-32 [facility] Comment on above: Performed By: #### 1 9123-9 #### OLESYA CAIN ([id number]) [facility] ([facility]) [address] [place] [address] Creatinine [Mass/Vol] 0.60 mg/dL Normal 0.50-1.30 [facility] Comment on above: Performed By: #### 1 9123-9 #### OLESYA CAIN ([id number]) [facility] ([facility]) [address] [place] [address] GFR/1.73 sq M.predicted MDRD (S/P/Bld) [Vol rate/Area] mL/min/{1.73_m2} Normal >60 [facility] Comment on above: Result Comment: Calc ulations of estimated GFR are performed using the 2020 CKD-EPI Study Refit equation without the race variable for the IDMS-Traceable creatinine methods. https://jasn.asnjournals.org/content/early//ASN.10836 31959 Performed By: #### 1 9123-9 #### OLESYA CAIN ([id number]) [facility] ([facility]) [address] [place] [address] Glucose [Mass/Vol] 157 mg/dL High 74-99 [facility] Comment on above: Performed By: #### 1 9123-9 #### OLESYA CAIN ([id number]) [facility] ([facility]) [address] [place] [address] Potassium [Moles/Vol] 4.1 mmol/L Normal 3.5-5.3 [facility] Comment on above: Performed By: #### 1 9123-9 #### OLESYA CAIN ([id number]) [facility] ([facility]) [address] [place] [address] Sodium [Moles/Vol] 138 mmol/L Normal 136-145 [facility] Comment on above: Performed By: #### 1 9123-9 #### OLESYA CAIN ([id number]) [facility] ([facility]) [address] [place] [address] Urea nitrogen [Mass/Vol] 22 mg/dL Normal 6-23 [facility] Comment on above: Performed By: #### 1 9123-9 #### OLESYA CAIN ([id number]) [facility] ([facility]) [address] [place] [address] CBC panel Auto (Bld)on 10-05 Erythrocyte distribution width (RBC) [Ratio] 16.2 % High 11.5 - 14.5 % [facility] Hematocrit (Bld) [Volume fraction] 33.9 % Low 41.0 - 52.0 % [facility] Hemoglobin (Bld) [Mass/Vol] 11 g/dL Low 13.5 - 17.5 g/dL [facility] Interpretation and review of laboratory results Abnormal [facility] MCH (RBC) [Entitic mass] 27.4 pg 26.0 - 34.0 pg [facility] MCHC (RBC) [Mass/Vol] 32.4 g/dL 32.0 - 36.0 g/dL [facility] MCV (RBC) [Entitic vol] 84 fL 80 - 100 fL [facility] Nucleated RBC/100 WBC (Bld) [Ratio] 0 % [facility] Platelets (Bld) [#/Vol] 264 10*3/uL [facility] RBC (Bld) [#/Vol] 4.02 10*6/uL Low [facility] WBC (Bld) [#/Vol] 6.6 10*3/uL [facility] Erythrocyte distribution width (RBC) [Ratio] 16.2 % High 11.5-14.5 [facility] Comment on above: Performed By: #### 1 9123-9 #### OLESYA CAIN ([id number]) [facility] ([facility]) [address] [place] [address] Hematocrit (Bld) [Volume fraction] 33.9 % Low 41.0-52.0 [facility] Comment on above: Performed By: #### 1 9123-9 #### OLESYA CAIN ([id number]) [facility] ([facility]) [address] [place] [address] Hemoglobin (Bld) [Mass/Vol] 11.0 g/dL Low 13.5-17.5 [facility] Comment on above: Performed By: #### 1 9123-9 #### OLESYA CAIN ([id number]) [facility] ([facility]) [address] [place] [address] MCH (RBC) [Entitic mass] 27.4 pg Normal 26.0-34.0 [facility] Comment on above: Performed By: #### 1 9123-9 #### OLESYA CAIN ([id number]) [facility] ([facility]) [address] [place] [address] MCHC (RBC) [Mass/Vol] 32.4 g/dL Normal 32.0-36.0 [facility] Comment on above: Performed By: #### 1 9123-9 #### OLESYA CAIN ([id number]) [facility] ([facility]) [address] [place] [address] MCV (RBC) [Entitic vol] 84 fL Normal 80-100 [facility] Comment on above: Performed By: #### 1 9123-9 #### OLESYA CAIN ([id number]) [facility] ([facility]) [address] [place] [address] Nucleated RBC/100 WBC (Bld) [Ratio] 0.0 /100 WBCs Normal 0.0-0.0 [facility] Comment on above: Performed By: #### 1 9123-9 #### OLESYA CAIN ([id number]) [facility] ([facility]) [address] [place] [address] Platelets (Bld) [#/Vol] 264 x10*3/uL Normal 150-450 [facility] Comment on above: Performed By: #### 1 9123-9 #### OLESYA CAIN ([id number]) [facility] ([facility]) [address] [place] [address] RBC (Bld) [#/Vol] 4.02 x10*6/uL Low 4.50-5.90 [facility] Comment on above: Performed By: #### 1 9123-9 #### OLESYA CAIN ([id number]) [facility] ([facility]) [address] [place] [address] WBC (Bld) [#/Vol] 6.6 x10*3/uL Normal 4.4-11.3 [facility] Comment on above: Performed By: #### 1 9123-9 #### OLESYA CAIN ([id number]) [facility] ([facility]) [address] [place] [address] Glucose Test strip manual (B ld) [Mass/Vol]on 10-05-2024 Glucose [Mass/Vol] 154 mg/dL High 74-99 [facility] Comment on above: Performed By: #### 1 9123-9 #### OLESYA CAIN ([id number]) [facility] ([facility]) [address] [place] [address] Glucose [Mass/Vol] 183 mg/dL High 74 - 99 mg/dL [facility] Interpretation and review of laboratory results Abnormal [facility] Glucose [Mass/Vol] 183 mg/dL High 74-99 [facility] Comment on above: Performed By: #### 1 9123-9 #### OLESYA CAIN ([id number]) [facility] ([facility]) [address] [place] [address] Glucose [Mass/Vol] 213 mg/dL High 74 - 99 mg/dL [facility] Interpretation and review of laboratory results Abnormal [facility] Glucose [Mass/Vol] 213 mg/dL High 74-99 [facility] Comment on above: Performed By: #### 1 9123-9 #### OLESYA CAIN ([id number]) [facility] ([facility]) [address] [place] [address] Glucose [Mass/Vol] 168 mg/dL High 74 - 99 mg/dL [facility] Interpretation and review of laboratory results Abnormal [facility] Glucose [Mass/Vol] 168 mg/dL High 74-99 [facility] Comment on above: Performed By: #### 1 9123-9 #### OLESYA CAIN ([id number]) [facility] ([facility]) [address] [place], [place] [address] Magnesiumon 10-05-2024 Magnesium [Mass/Vol] 1.97 mg/dL 1.60 - 2.40 mg/dL [facility] Magnesium [Mass/Vol] 1.97 mg/dL Normal 1.60-2.40 [facility] Comment on above: Performed By: #### 1 9123-9 #### OLESYA CAIN ([id number]) [facility] ([facility]) [address] [place] [address] No Panel Informationon 10-05 Interpretation and review of laboratory results Normal [facility] Phosphateon 10-05-2024 Phosphate [Mass/Vol] 4.3 mg/dL Normal 2.5-4.9 [facility] Comment on above: Result Comment: The performance characteristics of phosphorus testing in heparinized plasma have been validated by the individual laboratory site where testing is performed. Testing on heparinized plasma is not approved by the FDA; however, such approval is not necessary. Performed By: #### 1 9123-9 #### OLESYA CAIN ([id number]) [facility] ([facility]) [address] [place] [address] Phosphoruson 10-05-2024 Phosphate [Mass/Vol] 4.3 mg/dL 2.5 - 4 .9 mg/dL [facility] Comment on above: The performance cheri acteristics of phosphorus testing in heparinized plasma have been validated by the individual laboratory site where testing is performed. Testing on heparinized plasma is not approved by the FDA; however, such approval is not necessary. Basic metabolic 2000 panelon 10-04-2024 Anion gap [Moles/Vol] 13 mmol/L 10 - 2 0 mmol/L [facility] Calcium [Mass/Vol] 9.4 mg/dL 8.6 - 10. 3 mg/dL [facility] Chloride [Moles/Vol] 100 mmol/L 98 - 10 7 mmol/L [facility] CO2 [Moles/Vol] 27 mmol/L 21 - 32 mmol/L [facility] Creatinine [Mass/Vol] 0.55 mg/dL 0.50 - 1.30 mg/dL [facility] eGFR - PINF [facility] Comment on above: Calculations of bartolome mated GFR are performed using the 2020 CKD-EPI Study Refit equation without the race variable for the IDMS-Traceable creatinine methods. https://jasn.asnjournals.org/content/early//ASN.79264 17378 Glucose [Mass/Vol] 169 mg/dL High 74 - 99 mg/dL [facility] Interpretation and review of laboratory results Abnormal [facility] Potassium [Moles/Vol] 3.8 mmol/L 3.5 - 5.3 mmol/L [facility] Sodium [Moles/Vol] 136 mmol/L 136 - 145 mmol/L [facility] Urea nitrogen [Mass/Vol] 18 mg/dL 6 - 23 mg/dL [facility] Anion gap [Moles/Vol] 13 mmol/L Normal 10-20 [facility] Comment on above: Performed By: #### 3 4529-8 #### OLESYA CAIN ([id number]) [facility] ([facility]) [address] [place] [address] Calcium [Mass/Vol] 9.4 mg/dL Normal 8.6-10.3 [facility] Comment on above: Performed By: #### 3 4529-8 #### OLESYA CAIN ([id number]) [facility] ([facility]) [address] [place] [address] Chloride [Moles/Vol] 100 mmol/L Normal 98-107 [facility] Comment on above: Performed By: #### 3 4529-8 #### OLESYA CAIN ([id number]) [facility] ([facility]) [address] [place] [address] CO2 [Moles/Vol] 27 mmol/L Normal 21-32 [facility] Comment on above: Performed By: #### 3 4529-8 #### OLESYA CAIN ([id number]) [facility] ([facility]) [address] [place] [address] Creatinine [Mass/Vol] 0.55 mg/dL Normal 0.50-1.30 [facility] Comment on above: Performed By: #### 3 4529-8 #### OLESYA CAIN ([id number]) [facility] ([facility]) [address] [place] [address] GFR/1.73 sq M.predicted MDRD (S/P/Bld) [Vol rate/Area] mL/min/{1.73_m2} Normal >60 [facility] Comment on above: Result Comment: Calc ulations of estimated GFR are performed using the 2020 CKD-EPI Study Refit equation without the race variable for the IDMS-Traceable creatinine methods. https://jasn.asnjournals.org/content/early//ASN.04139 23560 Performed By: #### 3 4529-8 #### OLESYA CAIN ([id number]) [facility] ([facility]) [address] [place] [address] Glucose [Mass/Vol] 169 mg/dL High 74-99 [facility] Comment on above: Performed By: #### 3 4529-8 #### OLESYA CAIN ([id number]) [facility] ([facility]) [address] [place] [address] Potassium [Moles/Vol] 3.8 mmol/L Normal 3.5-5.3 [facility] Comment on above: Performed By: #### 3 4529-8 #### OLESYA CAIN ([id number]) [facility] ([facility]) [address] [place] [address] Sodium [Moles/Vol] 136 mmol/L Normal 136-145 [facility] Comment on above: Performed By: #### 3 4529-8 #### OLESYA CAIN ([id number]) [facility] ([facility]) [address] [place] [address] Urea nitrogen [Mass/Vol] 18 mg/dL Normal 6-23 [facility] Comment on above: Performed By: #### 3 4529-8 #### OLESYA CAIN ([id number]) [facility] ([facility]) [address] [place] [address] CBC panel Auto (Bld)on 10-04 Erythrocyte distribution width (RBC) [Ratio] 16.2 % High 11.5 - 14.5 % [facility] Hematocrit (Bld) [Volume fraction] 32.9 % Low 41.0 - 52.0 % [facility] Hemoglobin (Bld) [Mass/Vol] 10.5 g/dL Low 13.5 - 17.5 g/dL [facility] Interpretation and review of laboratory results Abnormal [facility] MCH (RBC) [Entitic mass] 26.7 pg 26.0 - 34.0 pg [facility] MCHC (RBC) [Mass/Vol] 31.9 g/dL Low 32.0 - 36.0 g/dL [facility] MCV (RBC) [Entitic vol] 84 fL 80 - 100 fL [facility] Nucleated RBC/100 WBC (Bld) [Ratio] 0 % [facility] Platelets (Bld) [#/Vol] 270 10*3/uL [facility] RBC (Bld) [#/Vol] 3.93 10*6/uL [facility] WBC (Bld) [#/Vol] 5.2 10*3/uL [facility] Erythrocyte distribution width (RBC) [Ratio] 16.2 % High 11.5-14.5 [facility] Comment on above: Performed By: #### 3 4529-8 #### OLESYA CAIN ([id number]) [facility] ([facility]) [address] [place] [address] Hematocrit (Bld) [Volume fraction] 32.9 % Low 41.0-52.0 [facility] Comment on above: Performed By: #### 3 4529-8 #### OLESYA CAIN ([id number]) [facility] ([facility]) [address] [place] [address] Hemoglobin (Bld) [Mass/Vol] 10.5 g/dL Low 13.5-17.5 [facility] Comment on above: Performed By: #### 3 4529-8 #### OLESYA CAIN ([id number]) [facility] ([facility]) [address] [place] [address] MCH (RBC) [Entitic mass] 26.7 pg Normal 26.0-34.0 [facility] Comment on above: Performed By: #### 3 4529-8 #### OLESYA CAIN ([id number]) [facility] ([facility]) [address] [place] [address] MCHC (RBC) [Mass/Vol] 31.9 g/dL Low 32.0-36.0 [facility] Comment on above: Performed By: #### 3 4529-8 #### OLESYA CAIN ([id number]) [facility] ([facility]) [address] [place] [address] MCV (RBC) [Entitic vol] 84 fL Normal 80-100 [facility] Comment on above: Performed By: #### 3 4529-8 #### OLESYA CAIN ([id number]) [facility] ([facility]) [address] [place] [address] Nucleated RBC/100 WBC (Bld) [Ratio] 0.0 /100 WBCs Normal 0.0-0.0 [facility] Comment on above: Performed By: #### 3 4529-8 #### OLESYA CAIN ([id number]) [facility] ([facility]) [address] [place] [address] Platelets (Bld) [#/Vol] 270 x10*3/uL Normal 150-450 [facility] Comment on above: Performed By: #### 3 4529-8 #### OLESYA CAIN ([id number]) [facility] ([facility]) [address] [place] [address] RBC (Bld) [#/Vol] 3.93 x10*6/uL Low 4.50-5.90 [facility] Comment on above: Performed By: #### 3 4529-8 #### OLESYA CAIN ([id number]) [facility] ([facility]) [address] [place] [address] WBC (Bld) [#/Vol] 5.2 x10*3/uL Normal 4.4-11.3 [facility] Comment on above: Performed By: #### 3 4529-8 #### OLESYA CAIN ([id number]) [facility] ([facility]) [address] [place] [address] Glucose Test strip manual (B ld) [Mass/Vol]on 10-04-2024 Glucose [Mass/Vol] 243 mg/dL High 74 - 99 mg/dL [facility] Interpretation and review of laboratory results Abnormal [facility] Glucose [Mass/Vol] 243 mg/dL High 74-99 [facility] Comment on above: Performed By: #### 1 9123-9 #### OLESYA CAIN ([id number]) [facility] ([facility]) [address] [place] [address] Glucose [Mass/Vol] 224 mg/dL High 74 - 99 mg/dL [facility] Interpretation and review of laboratory results Abnormal [facility] Glucose [Mass/Vol] 224 mg/dL High 74-99 [facility] Comment on above: Performed By: #### 3 4529-8 #### OLESYA CAIN ([id number]) [facility] ([facility]) [address] [place] [address] Glucose [Mass/Vol] 171 mg/dL High 74 - 99 mg/dL [facility] Interpretation and review of laboratory results Abnormal [facility] Glucose [Mass/Vol] 171 mg/dL High 74-99 [facility] Comment on above: Performed By: #### 3 4529-8 #### OLESYA CAIN ([id number]) [facility] ([facility]) [address] [place] [address] Glucose [Mass/Vol] 175 mg/dL High 74 - 99 mg/dL [facility] Interpretation and review of laboratory results Abnormal [facility] Glucose [Mass/Vol] 175 mg/dL High 74-99 [facility] Comment on above: Performed By: #### 3 4529-8 #### OLESYA CAIN ([id number]) [facility] ([facility]) [address] [place] [address] Magnesiumon 10-04-2024 Magnesium [Mass/Vol] 1.81 mg/dL 1.60 - 2.40 mg/dL [facility] Magnesium [Mass/Vol] 1.81 mg/dL Normal 1.60-2.40 [facility] Comment on above: Performed By: #### 3 4529-8 #### OLESYA CAIN ([id number]) [facility] ([facility]) [address] [place] [address] No Panel Informationon 10-04 Interpretation and review of laboratory results Normal [facility] Phosphateon 10-04-2024 Phosphate [Mass/Vol] 4.3 mg/dL Normal 2.5-4.9 [facility] Comment on above: Result Comment: The performance characteristics of phosphorus testing in heparinized plasma have been validated by the individual laboratory site where testing is performed. Testing on heparinized plasma is not approved by the FDA; however, such approval is not necessary. Performed By: #### 3 4529-8 #### OLESYA CAIN ([id number]) [facility] ([facility]) [address] [place] [address] Phosphoruson 10-04-2024 Phosphate [Mass/Vol] 4.3 mg/dL 2.5 - 4 .9 mg/dL [facility] Comment on above: The performance cheri acteristics [...] Silvio Barksdale 10/04/2024 10:50 AM Dictation workstation: [id number] Interpreted By: Silvio Schmitt, STUDY: US RIGHT UPPER QUADRANT; 10/04/2024 8:45 am INDICATION: Signs/Symptoms:Distende d gallbladder per CT scan. COMPARISON: None. ACCESSION NUMBER(S): [id number] ORDERING CLINICIAN: YAMILETH GILMAN TECHNIQUE: Multiple images [...] No right upper quadrant free fluid identified. [facility] MMODAL Silvio Barksdale MD - 10/04/2024 Interpreted By: Silvio Barksdale, STUDY: US RIGHT UPPER QUADRANT; 10/04/2024 8:45 am INDICATION: Signs/Symptoms:Distende d gallbladder per CT scan. COMPARISON: None. ACCESSION NUMBER(S): [id number] ORDERING CLINICIAN: YAMILETH GILMAN TECHNIQUE: Multiple images [...] Silvio Barksdale 10/04/2024 10:50 AM Dictation workstation: [id number] [facility] Work Phone: Radiology Study observation (narrative) [facility] Work Phone: US Abdomen RUQOrdered By: [place] Barksdale on 10-04-2024 [facility] Work Phone: CBC panel Auto (Bld)on 10-03 Erythrocyte distribution width (RBC) [Ratio] 16.3 % High 11.5 - 14.5 % [facility] Hematocrit (Bld) [Volume fraction] 32.6 % Low 41.0 - 52.0 % [facility] Hemoglobin (Bld) [Mass/Vol] 10.6 g/dL Low 13.5 - 17.5 g/dL [facility] Interpretation and review of laboratory results Abnormal [facility] MCH (RBC) [Entitic mass] 27.2 pg 26.0 - 34.0 pg [facility] MCHC (RBC) [Mass/Vol] 32.5 g/dL 32.0 - 36.0 g/dL [facility] MCV (RBC) [Entitic vol] 84 fL 80 - 100 fL [facility] Nucleated RBC/100 WBC (Bld) [Ratio] 0 % [facility] Platelets (Bld) [#/Vol] 249 10*3/uL [facility] RBC (Bld) [#/Vol] 3.9 10*6/uL Low [facility] WBC (Bld) [#/Vol] 3.9 10*3/uL Low [facility] Erythrocyte distribution width (RBC) [Ratio] 16.3 % High 11.5-14.5 [facility] Comment on above: Performed By: #### 5 8410-2 #### OLESYA CAIN ([id number]) [facility] ([facility]) [address] [place] [address] Hematocrit (Bld) [Volume fraction] 32.6 % Low 41.0-52.0 [facility] Comment on above: Performed By: #### 5 8410-2 #### OLESYA CAIN ([id number]) [facility] ([facility]) [address] [place] [address] Hemoglobin (Bld) [Mass/Vol] 10.6 g/dL Low 13.5-17.5 [facility] Comment on above: Performed By: #### 5 8410-2 #### OLESYA CAIN ([id number]) [facility] ([facility]) [address] [place] [address] MCH (RBC) [Entitic mass] 27.2 pg Normal 26.0-34.0 [facility] Comment on above: Performed By: #### 5 8410-2 #### OLESYA CAIN ([id number]) [facility] ([facility]) [address] [place] [address] MCHC (RBC) [Mass/Vol] 32.5 g/dL Normal 32.0-36.0 [facility] Comment on above: Performed By: #### 5 8410-2 #### OLESYA CAIN ([id number]) [facility] ([facility]) [address] [place] [address] MCV (RBC) [Entitic vol] 84 fL Normal 80-100 [facility] Comment on above: Performed By: #### 5 8410-2 #### OLESYA CAIN ([id number]) [facility] ([facility]) [address] [place] [address] Nucleated RBC/100 WBC (Bld) [Ratio] 0.0 /100 WBCs Normal 0.0-0.0 [facility] Comment on above: Performed By: #### 5 8410-2 #### OLESYA CAIN ([id number]) [facility] ([facility]) [address] [place] [address] Platelets (Bld) [#/Vol] 249 x10*3/uL Normal 150-450 [facility] Comment on above: Performed By: #### 5 8410-2 #### OLESYA CAIN ([id number]) [facility] ([facility]) [address] [place] [address] RBC (Bld) [#/Vol] 3.90 x10*6/uL Low 4.50-5.90 [facility] Comment on above: Performed By: #### 5 8410-2 #### OLESYA CAIN ([id number]) [facility] ([facility]) [address] [place] [address] WBC (Bld) [#/Vol] 3.9 x10*3/uL Low 4.4-11.3 [facility] Comment on above: Performed By: #### 5 8410-2 #### OLESYA CAIN ([id number]) [facility] ([facility]) [address] [place] [address] Comprehensive metabolic 2000 panelon 10-03-2024 Albumin BCP dye [Mass/Vol] 3.9 g/dL 3.4 - 5.0 g/dL [facility] ALP [Catalytic activity/Vol] 57 U/L 33 - 136 U/L [facility] ALT With P-5'-P [Catalytic activity/Vol] 11 U/L 10 - 52 U/L [facility] Comment on above: Patients treated wit h Sulfasalazine may generate falsely decreased results for ALT. Anion gap [Moles/Vol] 12 mmol/L 10 - 2 0 mmol/L [facility] AST With P-5'-P [Catalytic activity/Vol] 8 U/L Low 9 - 39 U/L [facility] Bilirubin [Mass/Vol] 0.5 mg/dL 0.0 - 1 .2 mg/dL [facility] Calcium [Mass/Vol] 9.3 mg/dL 8.6 - 10. 3 mg/dL [facility] Chloride [Moles/Vol] 99 mmol/L 98 - 10 7 mmol/L [facility] CO2 [Moles/Vol] 27 mmol/L 21 - 32 mmol/L [facility] Creatinine [Mass/Vol] 0.56 mg/dL 0.50 - 1.30 mg/dL [facility] eGFR - PINF [facility] Comment on above: Calculations of bartolome mated GFR are performed using the 2020 CKD-EPI Study Refit equation without the race variable for the IDMS-Traceable creatinine methods. https://jasn.asnjournals.org/content//ASN.57949 35279 Glucose [Mass/Vol] 169 mg/dL High 74 - 99 mg/dL [facility] Interpretation and review of laboratory results Abnormal [facility] Potassium [Moles/Vol] 4.1 mmol/L 3.5 - 5.3 mmol/L [facility] Protein [Mass/Vol] 6.2 g/dL Low 6.4 - 8.2 g/dL [facility] Sodium [Moles/Vol] 134 mmol/L Low 136 - 145 mmol/L [facility] Urea nitrogen [Mass/Vol] 19 mg/dL 6 - 23 mg/dL [facility] Albumin BCP dye [Mass/Vol] 3.9 g/dL Normal 3.4-5.0 [facility] Comment on above: Performed By: #### 5 8410-2 #### OLESYA CAIN ([id number]) [facility] ([facility]) [address] [place] [address] ALP [Catalytic activity/Vol] 57 U/L Normal 33-136 [facility] Comment on above: Performed By: #### 5 8410-2 #### OLESYA CAIN ([id number]) [facility] ([facility]) [address] [place] [address] ALT With P-5'-P [Catalytic activity/Vol] 11 U/L Normal 10-52 [facility] Comment on above: Result Comment: Gisella ents treated with Sulfasalazine may generate falsely decreased results for ALT. Performed By: #### 5 8410-2 #### OLESYA CAIN ([id number]) [facility] ([facility]) [address] [place] [address] Anion gap [Moles/Vol] 12 mmol/L Normal 10-20 [facility] Comment on above: Performed By: #### 5 8410-2 #### OLESYA CAIN ([id number]) [facility] ([facility]) [address] [place] [address] AST With P-5'-P [Catalytic activity/Vol] 8 U/L Low 9-39 [facility] Comment on above: Performed By: #### 5 8410-2 #### OLESYA CAIN ([id number]) [facility] ([facility]) [address] [place] [address] Bilirubin [Mass/Vol] 0.5 mg/dL Normal 0.0-1.2 [facility] Comment on above: Performed By: #### 5 8410-2 #### OLESYA CAIN ([id number]) [facility] ([facility]) [address] [place] [address] Calcium [Mass/Vol] 9.3 mg/dL Normal 8.6-10.3 [facility] Comment on above: Performed By: #### 5 8410-2 #### OLESYA CAIN ([id number]) [facility] ([facility]) [address] [place] [address] Chloride [Moles/Vol] 99 mmol/L Normal 98-107 [facility] Comment on above: Performed By: #### 5 8410-2 #### OLESYA CAIN ([id number]) [facility] ([facility]) [address] [place] [address] CO2 [Moles/Vol] 27 mmol/L Normal 21-32 [facility] Comment on above: Performed By: #### 5 8410-2 #### OLESYA CAIN ([id number]) [facility] ([facility]) [address] [place] [address] Creatinine [Mass/Vol] 0.56 mg/dL Normal 0.50-1.30 [facility] Comment on above: Performed By: #### 5 8410-2 #### OLESYA CAIN ([id number]) [facility] ([facility]) [address] [place] [address] GFR/1.73 sq M.predicted MDRD (S/P/Bld) [Vol rate/Area] mL/min/{1.73_m2} Normal >60 [facility] Comment on above: Result Comment: Calc ulations of estimated GFR are performed using the 2020 CKD-EPI Study Refit equation without the race variable for the IDMS-Traceable creatinine methods. https://jasn.asnjournals.org/content//ASN.68957 96509 Performed By: #### 5 8410-2 #### OLESYA CAIN ([id number]) [facility] ([facility]) [address] [place] [address] Glucose [Mass/Vol] 169 mg/dL High 74-99 [facility] Comment on above: Performed By: #### 5 8410-2 #### OLESYA ACIN ([id number]) [facility] ([facility]) [address] [facility] [address] Potassium [Moles/Vol] 4.1 mmol/L Normal 3.5-5.3 [facility] Comment on above: Performed By: #### 5 8410-2 #### OLESYA CAIN ([id number]) [facility] ([facility]) [address] [facility] [address] Protein [Mass/Vol] 6.2 g/dL Low 6.4-8.2 [facility] Comment on above: Performed By: #### 5 8410-2 #### OLESYA CAIN ([id number]) [facility] ([facility]) [address] [facility] [address] Sodium [Moles/Vol] 134 mmol/L Low 136-145 [facility] Comment on above: Performed By: #### 5 8410-2 #### OLESYA CAIN ([id number]) [facility] ([facility]) [address] [facility] [address] Urea nitrogen [Mass/Vol] 19 mg/dL Normal 6-23 [facility] Comment on above: Performed By: #### 5 8410-2 #### OLESYA CAIN ([id number]) [facility] ([facility]) [address] [place] [address] Extra Urine Alba Tubeon 12-0 Extra Tube Hold for add-ons. [facility] Comment on above: Auto resulted. [facility] Glucose Test strip manual (B ld) [Mass/Vol]on 10-03-2024 Glucose [Mass/Vol] 199 mg/dL High 74 - 99 mg/dL [facility] Interpretation and review of laboratory results Abnormal [facility] Glucose [Mass/Vol] 199 mg/dL High 74-99 [facility] Comment on above: Performed By: #### 3 4529-8 #### OLESYA CAIN ([id number]) [facility] ([facility]) [address] [place] [address] Glucose [Mass/Vol] 156 mg/dL High 74 - 99 mg/dL [facility] Interpretation and review of laboratory results Abnormal [facility] Glucose [Mass/Vol] 156 mg/dL High 74-99 [facility] Comment on above: Performed By: #### 5 8410-2 #### OLESYA CAIN ([id number]) [facility] ([facility]) [address] [place] [address] Glucose [Mass/Vol] 171 mg/dL High 74 - 99 mg/dL [facility] Interpretation and review of laboratory results Abnormal [facility] Glucose [Mass/Vol] 171 mg/dL High 74-99 [facility] Comment on above: Performed By: #### 5 8410-2 #### OLESYA CAIN ([id number]) [facility] ([facility]) [address] [place] [address] Glucose [Mass/Vol] 183 mg/dL High 74 - 99 mg/dL [facility] Interpretation and review of laboratory results Abnormal [facility] Glucose [Mass/Vol] 183 mg/dL High 74-99 [facility] Comment on above: Performed By: #### 5 8410-2 #### OLESYA CAIN ([id number]) [facility] ([facility]) [address] [place] [address] Hemoglobin and Hematocrit pa radha (Bld)on 10-03-2024 Hematocrit (Bld) [Volume fraction] 32.2 % Low 41.0 - 52.0 % [facility] Hemoglobin (Bld) [Mass/Vol] 10.6 g/dL Low 13.5 - 17.5 g/dL [facility] Interpretation and review of laboratory results Abnormal [facility] Hematocrit (Bld) [Volume fraction] 32.2 % Low 41.0-52.0 [facility] Comment on above: Performed By: #### 3 4529-8 #### OLESYA CAIN ([id number]) [facility] ([facility]) [address] [place] [address] Hemoglobin (Bld) [Mass/Vol] 10.6 g/dL Low 13.5-17.5 [facility] Comment on above: Performed By: #### 3 4529-8 #### OLESYA CAIN ([id number]) [facility] ([facility]) [address] [place] [address] Magnesiumon 10-03-2024 Magnesium [Mass/Vol] 1.79 mg/dL 1.60 - 2.40 mg/dL [facility] Magnesium [Mass/Vol] 1.79 mg/dL Normal 1.60-2.40 [facility] Comment on above: Performed By: #### 5 8410-2 #### OLESYA CAIN ([id number]) [facility] ([facility]) [address] [place] [address] No Panel Informationon 10-03 Interpretation and review of laboratory results Normal [facility] Phosphateon 10-03-2024 Phosphate [Mass/Vol] 4.3 mg/dL Normal 2.5-4.9 [facility] Comment on above: Result Comment: The performance characteristics of phosphorus testing in heparinized plasma have been validated by the individual laboratory site where testing is performed. Testing on heparinized plasma is not approved by the FDA; however, such approval is not necessary. Performed By: #### 5 8410-2 #### OLESYA CAIN ([id number]) [facility] ([facility]) [address] [place] [address] Phosphoruson 10-03-2024 Phosphate [Mass/Vol] 4.3 mg/dL 2.5 - 4 .9 mg/dL [facility] Comment on above: The performance cheri acteristics of phosphorus testing in heparinized plasma have been validated by the individual laboratory site where testing is performed. Testing on heparinized plasma is not approved by the FDA; however, such approval is not necessary. CBC panel Auto (Bld)on 10-02 Erythrocyte distribution width (RBC) [Ratio] 16.2 % High 11.5 - 14.5 % [facility] Hematocrit (Bld) [Volume fraction] 35.2 % Low 41.0 - 52.0 % [facility] Hemoglobin (Bld) [Mass/Vol] 10.8 g/dL Low 13.5 - 17.5 g/dL [facility] Interpretation and review of laboratory results Abnormal [facility] MCH (RBC) [Entitic mass] 27 pg 26.0 - 34.0 pg [facility] MCHC (RBC) [Mass/Vol] 30.7 g/dL Low 32.0 - 36.0 g/dL [facility] MCV (RBC) [Entitic vol] 88 fL 80 - 100 fL [facility] Nucleated RBC/100 WBC (Bld) [Ratio] 0 % [facility] Platelets (Bld) [#/Vol] 250 10*3/uL [facility] RBC (Bld) [#/Vol] 4 10*6/uL Low [facility] WBC (Bld) [#/Vol] 4.3 10*3/uL Low [facility] Erythrocyte distribution width (RBC) [Ratio] 16.2 % High 11.5-14.5 [facility] Comment on above: Performed By: #### 5 8410-2 #### OLESYA CAIN ([id number]) [facility] ([facility]) [address] [place] [address] Hematocrit (Bld) [Volume fraction] 35.2 % Low 41.0-52.0 [facility] Comment on above: Performed By: #### 5 8410-2 #### OLESYA CAIN ([id number]) [facility] ([facility]) [address] [place] [address] Hemoglobin (Bld) [Mass/Vol] 10.8 g/dL Low 13.5-17.5 [facility] Comment on above: Performed By: #### 5 8410-2 #### OLESYA CAIN ([id number]) [facility] ([facility]) [address] [place] [address] MCH (RBC) [Entitic mass] 27.0 pg Normal 26.0-34.0 [facility] Comment on above: Performed By: #### 5 8410-2 #### OLESYA CAIN ([id number]) [facility] ([facility]) [address] [place] [address] MCHC (RBC) [Mass/Vol] 30.7 g/dL Low 32.0-36.0 [facility] Comment on above: Performed By: #### 5 8410-2 #### OLESYA CAIN ([id number]) [facility] ([facility]) [address] [place] [address] MCV (RBC) [Entitic vol] 88 fL Normal 80-100 [facility] Comment on above: Performed By: #### 5 8410-2 #### OLESYA CAIN ([id number]) [facility] ([facility]) [address] [place] [address] Nucleated RBC/100 WBC (Bld) [Ratio] 0.0 /100 WBCs Normal 0.0-0.0 [facility] Comment on above: Performed By: #### 5 8410-2 #### OLESYA CAIN ([id number]) [facility] ([facility]) [address] [place] [address] Platelets (Bld) [#/Vol] 250 x10*3/uL Normal 150-450 [facility] Comment on above: Performed By: #### 5 8410-2 #### OLESYA CAIN ([id number]) [facility] ([facility]) [address] [place] [address] RBC (Bld) [#/Vol] 4.00 x10*6/uL Low 4.50-5.90 [facility] Comment on above: Performed By: #### 5 8410-2 #### OLESYA CAIN ([id number]) [facility] ([facility]) [address] [place] [address] WBC (Bld) [#/Vol] 4.3 x10*3/uL Low 4.4-11.3 [facility] Comment on above: Performed By: #### 5 8410-2 #### OLESYA CAIN ([id number]) [facility] ([facility]) [address] [place] [address] CT ABDOMEN PELVIS WO IV CONT [facility] 10-02-2024 CT ABDOMEN PELVIS WO IV CONTRAST Interpreted By: Jermaine Beckford, STUDY: CT ABDOMEN PELVIS WO IV CONTRAST; 10/02/2024 8:17 am INDICATION: Signs/Symptoms:hematuri a with clots COMPARISON: None ACCESSION NUMBER(S): [id number] ORDERING CLINICIAN: HONG GRANT TECHNIQUE: Spiral axial [...] Jermaine Beckford 10/02/2024 10:27 AM Dictation workstation: [id number] [facility] CT Abdomen WO contraston 1. Large [...] Jermaine Beckford 10/02/2024 10:27 AM Dictation workstation: [id number] Interpreted By: Jermaine Beckford, STUDY: CT ABDOMEN PELVIS WO IV CONTRAST; 10/02/2024 8:17 am INDICATION: Signs/Symptoms:hematuri a with clots COMPARISON: None ACCESSION NUMBER(S): [id number] ORDERING CLINICIAN: HONG GRANT TECHNIQUE: Spiral axial [...] a with clots COMPARISON: None ACCESSION NUMBER(S): [id number] ORDERING CLINICIAN: HONG GRANT TECHNIQUE: Spiral axial [...] Jermaine Beckford 10/02/2024 10:27 AM Dictation workstation: [id number] [facility] Work Phone: Radiology Study observation (narrative) [facility] Work Phone: CT Abdomen WO contrastOrdere d By: Jermaine Beckford on 10-02-2024 [facility] Work Phone: Comprehensive metabolic 2000 panelon 10-02-2024 Albumin BCP dye [Mass/Vol] 4 g/dL 3.4 - 5.0 g/dL [facility] ALP [Catalytic activity/Vol] 60 U/L 33 - 136 U/L [facility] ALT With P-5'-P [Catalytic activity/Vol] 11 U/L 10 - 52 U/L [facility] Comment on above: Patients treated wit h Sulfasalazine may generate falsely decreased results for ALT. Anion gap [Moles/Vol] 12 mmol/L 10 - 2 0 mmol/L [facility] AST With P-5'-P [Catalytic activity/Vol] 8 U/L Low 9 - 39 U/L [facility] Bilirubin [Mass/Vol] 0.5 mg/dL 0.0 - 1 .2 mg/dL [facility] Calcium [Mass/Vol] 9.2 mg/dL 8.6 - 10. 3 mg/dL [facility] Chloride [Moles/Vol] 100 mmol/L 98 - 10 7 mmol/L [facility] CO2 [Moles/Vol] 27 mmol/L 21 - 32 mmol/L [facility] Creatinine [Mass/Vol] 0.46 mg/dL Low 0.50 - 1.30 mg/dL [facility] eGFR - PINF [facility] Comment on above: Calculations of bartolome mated GFR are performed using the 2020 CKD-EPI Study Refit equation without the race variable for the IDMS-Traceable creatinine methods. https://jasn.asnjournals.org/content/early//ASN.92900 02626 Glucose [Mass/Vol] 181 mg/dL High 74 - 99 mg/dL [facility] Interpretation and review of laboratory results Abnormal [facility] Potassium [Moles/Vol] 4 mmol/L 3.5 - 5.3 mmol/L [facility] Protein [Mass/Vol] 6.4 g/dL 6.4 - 8.2 g/dL [facility] Sodium [Moles/Vol] 135 mmol/L Low 136 - 145 mmol/L [facility] Urea nitrogen [Mass/Vol] 20 mg/dL 6 - 23 mg/dL [facility] Albumin BCP dye [Mass/Vol] 4.0 g/dL Normal 3.4-5.0 [facility] Comment on above: Performed By: #### 2 4323-8 #### OLESYA CAIN ([id number]) [facility] ([facility]) [address] [place] [address] ALP [Catalytic activity/Vol] 60 U/L Normal 33-136 [facility] Comment on above: Performed By: #### 2 4323-8 #### OLESYA CAIN ([id number]) [facility] ([facility]) [address] [place] [address] ALT With P-5'-P [Catalytic activity/Vol] 11 U/L Normal 10-52 [facility] Comment on above: Result Comment: Gisella ents treated with Sulfasalazine may generate falsely decreased results for ALT. Performed By: #### 2 4323-8 #### OLESYA CAIN ([id number]) [facility] ([facility]) [address] [place] [address] Anion gap [Moles/Vol] 12 mmol/L Normal 10-20 [facility] Comment on above: Performed By: #### 2 4323-8 #### OLESYA CAIN ([id number]) [facility] ([facility]) [address] [place] [address] AST With P-5'-P [Catalytic activity/Vol] 8 U/L Low 9-39 [facility] Comment on above: Performed By: #### 2 4323-8 #### OLESYA CAIN ([id number]) [facility] ([facility]) [address] [place] [address] Bilirubin [Mass/Vol] 0.5 mg/dL Normal 0.0-1.2 [facility] Comment on above: Performed By: #### 2 4323-8 #### OLESYA CAIN ([id number]) [facility] ([facility]) [address] [place] [address] Calcium [Mass/Vol] 9.2 mg/dL Normal 8.6-10.3 [facility] Comment on above: Performed By: #### 2 4323-8 #### OLESYA CAIN ([id number]) [facility] ([facility]) [address] [place] [address] Chloride [Moles/Vol] 100 mmol/L Normal 98-107 [facility] Comment on above: Performed By: #### 2 4323-8 #### OLESYA CAIN ([id number]) [facility] ([facility]) [address] [place] [address] CO2 [Moles/Vol] 27 mmol/L Normal 21-32 [facility] Comment on above: Performed By: #### 2 4323-8 #### OLESYA CAIN ([id number]) [facility] ([facility]) [address] [place] [address] Creatinine [Mass/Vol] 0.46 mg/dL Low 0.50-1.30 [facility] Comment on above: Performed By: #### 2 4323-8 #### OLESYA CAIN ([id number]) [facility] ([facility]) [address] [place] [address] GFR/1.73 sq M.predicted MDRD (S/P/Bld) [Vol rate/Area] mL/min/{1.73_m2} Normal >60 [facility] Comment on above: Result Comment: Calc ulations of estimated GFR are performed using the 2020 CKD-EPI Study Refit equation without the race variable for the IDMS-Traceable creatinine methods. https://jasn.asnjournals.org/content//ASN.85087 66707 Performed By: #### 2 4323-8 #### OLESYA CAIN ([id number]) [facility] ([facility]) [address] [place] [address] Glucose [Mass/Vol] 181 mg/dL High 74-99 [facility] Comment on above: Performed By: #### 2 4323-8 #### OLESYA CAIN ([id number]) [facility] ([facility]) [address] [place] [address] Potassium [Moles/Vol] 4.0 mmol/L Normal 3.5-5.3 [facility] Comment on above: Performed By: #### 2 4323-8 #### OLESYA CAIN ([id number]) [facility] ([facility]) [address] [place] [address] Protein [Mass/Vol] 6.4 g/dL Normal 6.4-8.2 [facility] Comment on above: Performed By: #### 2 4323-8 #### OLESYA CAIN ([id number]) [facility] ([facility]) [address] [place] [address] Sodium [Moles/Vol] 135 mmol/L Low 136-145 [facility] Comment on above: Performed By: #### 2 4323-8 #### OLESYA CAIN ([id number]) [facility] ([facility]) [address] [place] [address] Urea nitrogen [Mass/Vol] 20 mg/dL Normal 6-23 [facility] Comment on above: Performed By: #### 2 4323-8 #### OLESYA CAIN ([id number]) [facility] ([facility]) [address] [place] [address] ECG 12 LeadOrdered By: Luis Noel on 10-02-2024 Atrial Rate 55 BPM [facility] Work Phone: P [place] 13 degrees [facility] Work Phone: P Offset 203 [facility] Work Phone: P Onset 141 [facility] Work Phone: CO Interval 168 ms [facility] Work Phone: Q Onset 225 [facility] Work Phone: QRS Count 9 beats [facility] Work Phone: QRS Duration 106 ms [facility] Work Phone: QT Interval 434 ms [facility] Work Phone: QTC Calculation(Bazett) 415 [facility] Work Phone: QTC Fredericia 421 ms [facility] Work Phone: R [place] -25 degrees [facility] Work Phone: T [place] -13 degrees [facility] Work Phone: T Offset 442 ms [facility] Work Phone: Ventricular Rate 55 BPM [facility] Work Phone: [facility] Work Phone: ECG 12 Leadon 10-02-2024 Sinus bradycardia Moderate voltage criteria for LVH, may be normal variant No previous ECGs available Reconfirmed by Luis Noel ([id number]) on 10/02/2024 3:37:50 PM Luis Felder M D - 10/02/2024 Sinus bradycardia Moderate voltage criteria for LVH, may be normal variant No previous ECGs available Reconfirmed by Luis Noel ([id number]) on 10/02/2024 3:37:50 PM [facility] Work Phone: ECG 12-LEADon 10-02-2024 ECG 12-LEAD Ventricular Rate 55 Atrial Rate 55 P-R Interval 168 QRS Duration 106 Q-T Interval 434 QTC Calculation(Bazett) 415 P [place] 13 R [place] -25 T [place] -13 QRS Count 9 Q Onset 225 P Onset 141 P Offset 203 T Offset 442 QTC Fredericia 421 Diagnosis Sinus bradycardia Moderate voltage criteria for LVH, may be normal variant No previous ECGs available Reconfirmed by Luis Noel ([id number]) on 10/02/2024 3:37:50 PM Normal [facility] Glucose Test strip manual (B ld) [Mass/Vol]on 10-02-2024 Glucose [Mass/Vol] 192 mg/dL High 74 - 99 mg/dL [facility] Interpretation and review of laboratory results Abnormal [facility] Glucose [Mass/Vol] 192 mg/dL High 74-99 [facility] Comment on above: Performed By: #### 5 8410-2 #### OLESYA CAIN ([id number]) [facility] ([facility]) [address] [place] [address] Glucose [Mass/Vol] 179 mg/dL High 74 - 99 mg/dL [facility] Interpretation and review of laboratory results Abnormal [facility] Glucose [Mass/Vol] 179 mg/dL High 74-99 [facility] Comment on above: Performed By: #### 5 8410-2 #### OLESYA CAIN ([id number]) [facility] ([facility]) [address] [place] [address] Glucose [Mass/Vol] 188 mg/dL High 74 - 99 mg/dL [facility] Interpretation and review of laboratory results Abnormal [facility] Glucose [Mass/Vol] 188 mg/dL High 74-99 [facility] Comment on above: Performed By: #### 2 341-6 #### OLESYA CAIN ([id number]) [facility] ([facility]) [address] [place] [address] Glucose [Mass/Vol] 173 mg/dL High 74 - 99 mg/dL [facility] Interpretation and review of laboratory results Abnormal [facility] Glucose [Mass/Vol] 173 mg/dL High 74-99 [facility] Comment on above: Performed By: #### 2 341-6 #### OLESYA CAIN ([id number]) [facility] ([facility]) [address] [place] [address] Glucose [Mass/Vol] 160 mg/dL High 74 - 99 mg/dL [facility] Comment on above: RN NOTIFIED Interpretation and review of laboratory results Abnormal [facility] Glucose [Mass/Vol] 160 mg/dL High 74-99 [facility] Comment on above: Result Comment: RN N OTIFIED Performed By: #### 2 341-6 #### OLESYA CAIN ([id number]) [facility] ([facility]) [address] [place] [address] Magnesiumon 10-02-2024 Magnesium [Mass/Vol] 1.69 mg/dL 1.60 - 2.40 mg/dL [facility] Magnesium [Mass/Vol] 1.69 mg/dL Normal 1.60-2.40 [facility] Comment on above: Performed By: #### 1 9123-9 #### OLESYA CAIN ([id number]) [facility] ([facility]) [address] [place] [address] No Panel Informationon 10-02 Interpretation and review of laboratory results Normal [facility] PT and aPTT panel Coag (PPP) on 10-02-2024 aPTT Coag (PPP) [Time] 32 s [facility] INR Coag (PPP) [Relative time] 1.2 {INR} High 0.9 - 1.1 [facility] Interpretation and review of laboratory results Abnormal [facility] PT Coag (PPP) [Time] 13.1 s High [facility] The APTT is no longe r used for monitoring Unfractionated Heparin Therapy. For monitoring Heparin Therapy, use the Heparin Assay. [facility] aPTT Coag (PPP) [Time] 32 s Normal 27-38 [facility] Comment on above: Order Comment: The A PTT is no longer used for monitoring Unfractionated Heparin Therapy. For monitoring Heparin Therapy, use the Heparin Assay. Performed By: #### 3 4529-8 #### OLESYA CAIN ([id number]) [facility] ([facility]) [address] [place] [address] INR Coag (PPP) [Relative time] 1.2 High 0.9-1.1 [facility] Comment on above: Order Comment: The A PTT is no longer used for monitoring Unfractionated Heparin Therapy. For monitoring Heparin Therapy, use the Heparin Assay. Performed By: #### 3 4529-8 #### OLESYA CAIN ([id number]) [facility] ([facility]) [address] [place] [address] PT Coag (PPP) [Time] 13.1 s High 9.8-12.8 [facility] Comment on above: Order Comment: The A PTT is no longer used for monitoring Unfractionated Heparin Therapy. For monitoring Heparin Therapy, use the Heparin Assay. Performed By: #### 3 4529-8 #### OLESYA CAIN ([id number]) [facility] ([facility]) [id number] [place] [address] Phosphateon 10-02-2024 Phosphate [Mass/Vol] 3.1 mg/dL Normal 2.5-4.9 [facility] Comment on above: Result Comment: The performance characteristics of phosphorus testing in heparinized plasma have been validated by the individual laboratory site where testing is performed. Testing on heparinized plasma is not approved by the FDA; however, such approval is not necessary. Performed By: #### 2 777-1 #### OLESYA CAIN ([id number]) [facility] ([facility]) [address] [place] [address] Phosphoruson 10-02-2024 Phosphate [Mass/Vol] 3.1 mg/dL 2.5 - 4 .9 mg/dL [facility] Comment on above: The performance cheri acteristics [...] per CT scan. COMPARISON: None. ACCESSION NUMBER(S): [id number] ORDERING CLINICIAN: YAMILETH GILMAN TECHNIQUE: Multiple images [...] Silvio Barksdale 10/04/2024 10:50 AM Dictation workstation: [id number] Normal [facility] Urinalysis complete W Reflex Culture panel (U)on 10-02-2024 Appearance (U) Clear Clear [facility] Bilirubin (U) [Mass/Vol] Negative NEGATIVE [facility] Color (U) Colorless Abnormal Light-Carver ow, Yellow, Dark-Yello w [facility] Glucose Auto test strip (U) [Mass/Vol] Normal Normal mg/dL [facility] Interpretation and review of laboratory results Abnormal [facility] Interpretation and review of laboratory results Normal [facility] Ketones (U) [Mass/Vol] Negative NEGAT FARHEEN mg/dL [facility] Leukocyte esterase Auto test strip Ql (U) Negative NEGATIVE [facility] Nitrite Auto test strip Ql (U) Negative NEGATIVE [facility] pH (U) 6.5 [pH] 5.0, 5.5, 6.0, 6.5, 7.0, 7.5, 8.0 [facility] Protein (U) [Mass/Vol] Negative NEGAT FARHEEN, 10 (TRACE), 20 (TRACE) mg/dL [facility] RBC (U) [#/Vol] OVER (3+) Abnormal NEGATIVE [facility] RBC Auto (Urine sed) [#/Area] 3-5 NONE, 1-2, 3-5 /HPF [facility] Specific gravity (U) [Rel density] 1.011 1.005 - 1.035 [facility] Urobilinogen (U) [Mass/Vol] Normal Normal mg/dL [facility] WBC Auto (Urine sed) [#/Area] 1-5 1-5, NONE /HPF [facility] OVER is reported whe n the result is greater than the clinically reportable range. [facility] Appearance (U) Clear Normal Clear [facility] Comment on above: Order Comment: Obtai n sample from current catheter, was changed in last 48 hoursOVER is reported when the result is greater than the clinically reportable range. Performed By: #### 5 8410-2 #### OLESYA CAIN ([id number]) [facility] ([facility]) [address] [place] [address] Bilirubin (U) [Mass/Vol] Negative Normal NEGATIVE [facility] Comment on above: Order Comment: Obtai n sample from current catheter, was changed in last 48 hoursOVER is reported when the result is greater than the clinically reportable range. Performed By: #### 5 8410-2 #### OLESYA CAIN ([id number]) [facility] ([facility]) [address] [place] [address] Color (U) Colorless Normal Light-Carver ow, Yellow, Dark-Yello w [facility] Comment on above: Order Comment: Obtai n sample from current catheter, was changed in last 48 hoursOVER is reported when the result is greater than the clinically reportable range. Performed By: #### 5 8410-2 #### OLESYA CAIN ([id number]) [facility] ([facility]) [address] [place] [address] Glucose Auto test strip (U) [Mass/Vol] Normal Normal Normal [facility] Comment on above: Order Comment: Obtai n sample from current catheter, was changed in last 48 hoursOVER is reported when the result is greater than the clinically reportable range. Performed By: #### 5 8410-2 #### OLESYA CAIN ([id number]) [facility] ([facility]) [address] [place] [address] Ketones (U) [Mass/Vol] Negative Normal NEGATIVE [facility] Comment on above: Order Comment: Obtai n sample from current catheter, was changed in last 48 hoursOVER is reported when the result is greater than the clinically reportable range. Performed By: #### 5 8410-2 #### OLESYA CAIN ([id number]) [facility] ([facility]) [address] [place] [address] Leukocyte esterase Auto test strip Ql (U) Negative Normal NEGATIVE [facility] Comment on above: Order Comment: Obtai n sample from current catheter, was changed in last 48 hoursOVER is reported when the result is greater than the clinically reportable range. Performed By: #### 5 8410-2 #### OLESYA CAIN ([id number]) [facility] ([facility]) [address] [place] [address] Nitrite Auto test strip Ql (U) Negative Normal NEGATIVE [facility] Comment on above: Order Comment: Obtai n sample from current catheter, was changed in last 48 hoursOVER is reported when the result is greater than the clinically reportable range. Performed By: #### 5 8410-2 #### OLESYA CAIN ([id number]) [facility] ([facility]) [address] [place] [address] pH (U) 6.5 [pH] Normal 5.0, 5.5, 6.0, 6.5, 7.0, 7.5, 8.0 [facility] Comment on above: Order Comment: Obtai n sample from current catheter, was changed in last 48 hoursOVER is reported when the result is greater than the clinically reportable range. Performed By: #### 5 8410-2 #### OLESYA CAIN ([id number]) [facility] ([facility]) [address] [place] [address] Protein (U) [Mass/Vol] Negative Normal NEGAT FARHEEN, 10 (TRACE), 20 (TRACE) [facility] Comment on above: Order Comment: Obtai n sample from current catheter, was changed in last 48 hoursOVER is reported when the result is greater than the clinically reportable range. Performed By: #### 5 8410-2 #### OLESYA CAIN ([id number]) [facility] ([facility]) [address] [place] [address] RBC (U) [#/Vol] OVER (3+) Abnormal NEGATIVE [facility] Comment on above: Order Comment: Obtai n sample from current catheter, was changed in last 48 hoursOVER is reported when the result is greater than the clinically reportable range. Performed By: #### 5 8410-2 #### OLESYA CAIN ([id number]) [facility] ([facility]) [address] [place] [address] RBC Auto (Urine sed) [#/Area] 3-5 Normal NONE, 1-2, 3-5 [facility] Comment on above: Order Comment: Obtai n sample from current catheter, was changed in last 48 hours Performed By: #### 5 8077-9 #### OLESYA CAIN ([id number]) [facility] ([facility]) [address] [place] [address] Specific gravity (U) [Rel density] 1.011 Normal 1.005-1.03 5 [facility] Comment on above: Order Comment: Obtai n sample from current catheter, was changed in last 48 hoursOVER is reported when the result is greater than the clinically reportable range. Performed By: #### 5 8410-2 #### OLESYA CAIN ([id number]) [facility] ([facility]) [address] [place] [address] Urobilinogen (U) [Mass/Vol] Normal Normal Normal [facility] Comment on above: Order Comment: Obtai n sample from current catheter, was changed in last 48 hoursOVER is reported when the result is greater than the clinically reportable range. Performed By: #### 5 8410-2 #### OLESYA CAIN ([id number]) [facility] ([facility]) [address] [place] [address] WBC Auto (Urine sed) [#/Area] 1-5 Normal 1-5, NONE [facility] Comment on above: Order Comment: Obtai n sample from current catheter, was changed in last 48 hours Performed By: #### 5 8077-9 #### OLESYA CAIN ([id number]) [facility] ([facility]) [address] [place] [address] Basophils Auto (Bld) [#/Vol] on 10-01-2024 Basophils (Bld) [#/Vol] Automated basophil count 0.0-0.1 [facility] Basophils/100 WBC Auto (Bld) on 10-01-2024 Basophils/100 WBC (Bld) Automated basophil % 0.2-2.0 [facility] Eosinophils/100 WBC Auto (Bl d)on 10-01-2024 Eosinophils/100 WBC (Bld) Automated eosinophil % 0.9-7.0 [facility] Erythrocyte distribution wid th Auto (RBC) [Ratio]on 10-01-2024 Erythrocyte distribution width (RBC) [Ratio] Erythrocyte distribution width [Ratio] by Automated count High 11.0-15.0 [facility] Estimated glomerular filtrat ion rate (GFR) non- Americanon 10-01-2024 GFR/1.73 sq M.predicted among non-blacks MDRD (S/P/Bld) [Vol rate/Area] Estimated glomerular filtration rate (GFR) non- >=60 mL/min/1.7 3m 2 [facility] Hematocrit Auto (Bld) [Volum e fraction]on 10-01-2024 Hematocrit (Bld) [Volume fraction] Hematocrit [Volume Fraction] of Blood by Automated count Low 42.0-54.0 [facility] Hemoglobin [Mass/volume] in Bloodon 10-01-2024 Hemoglobin (Bld) [Mass/Vol] Hemoglobin [Mass/volume] in Blood Low 14.0-18.0 [facility] Laboratory - Chemistry and C hemistry - challengeon 10-01-2024 Calcium [Mass/Vol] 9.2 mg/dL 8.5-10.1 [facility] Chloride [Moles/Vol] 102 mmol/L 98-107 [facility] CO2 [Moles/Vol] 29.7 mmol/L 21.0-32.0 [facility] Creatinine [Mass/Vol] 0.72 mg/dL 0.70-1.30 [facility] GFR/1.73 sq M.predicted MDRD (S/P/Bld) [Vol rate/Area] mL/min/{1.73_m2} >=60 mL/min/1.7 3m 2 [facility] Glucose [Mass/Vol] 167 mg/dL High 74-106 [facility] Potassium [Moles/Vol] 4.0 mmol/L 3.5-5.1 [facility] Sodium [Moles/Vol] 139 mmol/L 136-145 [facility] Urea nitrogen [Mass/Vol] 23.0 mg/dL High 7.0-18.0 [facility] Urea nitrogen/Creatinine [Mass ratio] 31.9 mg/mg [facility] Laboratory - Hematology and Cell countson 10-01-2024 Immature granulocytes/100 WBC (Bld) 0.2 % 0.0-0.5 [facility] Leukocytes [#/volume] correc willian for nucleated erythrocytes in Blood by Automated counon 10-01-2024 WBC corrected for nucl RBC Auto (Bld) [#/Vol] Leukocytes [#/volume] corrected for nucleated erythrocytes in Blood by Automated coun 4.0-11.0 [facility] Lymphocytes Auto (Bld) [#/Vo l]on 10-01-2024 Lymphocytes (Bld) [#/Vol] Lymphocytes [#/volume] in Blood by Automated count 1.2-3.8 [facility] Lymphocytes/100 WBC Auto (Bl d)on 10-01-2024 Lymphocytes/100 WBC (Bld) Lymphocytes/100 leukocytes in Blood by Automated count 20.5-60.0 [facility] MCH Auto (RBC) [Entitic mass ]on 10-01-2024 MCH (RBC) [Entitic mass] MCH [Entitic mass] by Automated count 25.9-34.0 [facility] MCHC Auto (RBC) [Mass/Vol]on 10-01-2024 MCHC (RBC) [Mass/Vol] MCHC [Mass/volume] by Automated count 29.9-35.2 [facility] MCV Auto (RBC) [Entitic vol] on 10-01-2024 MCV (RBC) [Entitic vol] MCV [Entitic volume] by Automated count 80.0-94.0 [facility] Monocytes Auto (Bld) [#/Vol] on 10-01-2024 Monocytes (Bld) [#/Vol] Automated blood monocyte count 0.3-0.8 [facility] Monocytes/100 WBC Auto (Bld) on 10-01-2024 Monocytes/100 WBC (Bld) Automated monocyte % 1.7-12.0 [facility] Neutrophils Auto (Bld) [#/Vo l]on 10-01-2024 Neutrophils (Bld) [#/Vol] Neutrophils [#/volume] in Blood by Automated count 1.4-6.5 [facility] Neutrophils/100 WBC Auto (Bl d)on 10-01-2024 Neutrophils/100 WBC (Bld) Automated neutrophil % 43.0-75.0 [facility] No Panel Informationon 10-01 Troponin I High Sensitivity 6.2 pg/mL 4.0-76.1 [facility] Comment on above: CUT-OFF POINTS HAVE BEEN [...] Eosinophils # (Auto) 0.2 10 3/uL 0.0-0.7 [facility] Immature Granulocyte # (Auto) 0.01 10 3/uL 0.00-0.03 [facility] Platelet mean volume Auto (B ld) [Entitic vol]on 10-01-2024 Platelet mean volume (Bld) [Entitic vol] Platelet mean volume [Entitic volume] in Blood by Automated count Low 9.5-13.5 [facility] Platelets Auto (Bld) [#/Vol] on 10-01-2024 Platelets (Bld) [#/Vol] Platelets [#/volume] in Blood by Automated count 150-450 [facility] RBC Auto (Bld) [#/Vol]on RBC (Bld) [#/Vol] Erythrocytes [#/volu me] in Blood by Automated count Low 4.70-6.10 [facility] Serum or plasma anion gap de terminationon 10-01-2024 Anion gap [Moles/Vol] Serum or plasma an ion gap determination [facility] Basophils Auto (Bld) [#/Vol] on 09-30-2024 Basophils (Bld) [#/Vol] Automated basophil count 0.0-0.1 [facility] Basophils/100 WBC Auto (Bld) on 09-30-2024 Basophils/100 WBC (Bld) Automated basophil % 0.2-2.0 [facility] Eosinophils/100 WBC Auto (Bl d)on 09-30-2024 Eosinophils/100 WBC (Bld) Automated eosinophil % 0.9-7.0 [facility] Erythrocyte distribution wid th Auto (RBC) [Ratio]on 09-30-2024 Erythrocyte distribution width (RBC) [Ratio] Erythrocyte distribution width [Ratio] by Automated count High 11.0-15.0 [facility] Estimated glomerular filtrat ion rate (GFR) non- Americanon 09-30-2024 GFR/1.73 sq M.predicted among non-blacks MDRD (S/P/Bld) [Vol rate/Area] Estimated glomerular filtration rate (GFR) non- >=60 mL/min/1.7 3m 2 [facility] Globulin Calc (S) [Mass/Vol] on 09-30-2024 Globulin (S) [Mass/Vol] Serum globulin measurement by calculation (mass/volume) [facility] Hematocrit Auto (Bld) [Volum e fraction]on 09-30-2024 Hematocrit (Bld) [Volume fraction] Hematocrit [Volume Fraction] of Blood by Automated count Low 42.0-54.0 [facility] Hemoglobin [Mass/volume] in Bloodon 09-30-2024 Hemoglobin (Bld) [Mass/Vol] Hemoglobin [Mass/volume] in Blood Low 14.0-18.0 [facility] Laboratory - Chemistry and C hemistry - challengeon 09-30-2024 Albumin [Mass/Vol] 3.3 g/dL Low 3.4-5.0 [facility] ALP [Catalytic activity/Vol] 72 U/L 46-116 [facility] ALT [Catalytic activity/Vol] 15 U/L Low 16-63 [facility] AST [Catalytic activity/Vol] 6 U/L Low 15-37 [facility] Bilirubin [Mass/Vol] 0.4 mg/dL 0.2-1.0 [facility] Calcium [Mass/Vol] 8.8 mg/dL 8.5-10.1 [facility] Chloride [Moles/Vol] 105 mmol/L 98-107 [facility] CO2 [Moles/Vol] 27.6 mmol/L 21.0-32.0 [facility] Creatinine [Mass/Vol] 0.66 mg/dL Low 0.70-1.30 [facility] GFR/1.73 sq M.predicted MDRD (S/P/Bld) [Vol rate/Area] mL/min/{1.73_m2} >=60 mL/min/1.7 3m 2 [facility] Glucose [Mass/Vol] 133 mg/dL High 74-106 [facility] Potassium [Moles/Vol] 4.2 mmol/L 3.5-5.1 [facility] Protein [Mass/Vol] 6.0 g/dL Low 6.4-8.2 [facility] Sodium [Moles/Vol] 141 mmol/L 136-145 [facility] Urea nitrogen [Mass/Vol] 22.0 mg/dL High 7.0-18.0 [facility] Urea nitrogen/Creatinine [Mass ratio] 33.3 mg/mg [facility] Laboratory - Hematology and Cell countson 09-30-2024 Immature granulocytes/100 WBC (Bld) 0.2 % 0.0-0.5 [facility] Leukocytes [#/volume] correc willian for nucleated erythrocytes in Blood by Automated counon 09-30-2024 WBC corrected for nucl RBC Auto (Bld) [#/Vol] Leukocytes [#/volume] corrected for nucleated erythrocytes in Blood by Automated coun 4.0-11.0 [facility] Lymphocytes Auto (Bld) [#/Vo l]on 09-30-2024 Lymphocytes (Bld) [#/Vol] Lymphocytes [#/volume] in Blood by Automated count 1.2-3.8 [facility] Lymphocytes/100 WBC Auto (Bl d)on 09-30-2024 Lymphocytes/100 WBC (Bld) Lymphocytes/100 leukocytes in Blood by Automated count 20.5-60.0 [facility] MCH Auto (RBC) [Entitic mass ]on 09-30-2024 MCH (RBC) [Entitic mass] MCH [Entitic mass] by Automated count 25.9-34.0 [facility] MCHC Auto (RBC) [Mass/Vol]on 09-30-2024 MCHC (RBC) [Mass/Vol] MCHC [Mass/volume] by Automated count 29.9-35.2 [facility] MCV Auto (RBC) [Entitic vol] on 09-30-2024 MCV (RBC) [Entitic vol] MCV [Entitic volume] by Automated count 80.0-94.0 [facility] Monocytes Auto (Bld) [#/Vol] on 09-30-2024 Monocytes (Bld) [#/Vol] Automated blood monocyte count 0.3-0.8 [facility] Monocytes/100 WBC Auto (Bld) on 09-30-2024 Monocytes/100 WBC (Bld) Automated monocyte % 1.7-12.0 [facility] Neutrophils Auto (Bld) [#/Vo l]on 09-30-2024 Neutrophils (Bld) [#/Vol] Neutrophils [#/volume] in Blood by Automated count 1.4-6.5 [facility] Neutrophils/100 WBC Auto (Bl d)on 09-30-2024 Neutrophils/100 WBC (Bld) Automated neutrophil % 43.0-75.0 [facility] No Panel Informationon 09-30 Eosinophils # (Auto) 0.1 10 3/uL 0.0-0.7 [facility] Immature Granulocyte # (Auto) 0.01 10 3/uL 0.00-0.03 [facility] Platelet mean volume Auto (B ld) [Entitic vol]on 09-30-2024 Platelet mean volume (Bld) [Entitic vol] Platelet mean volume [Entitic volume] in Blood by Automated count Low 9.5-13.5 [facility] Platelets Auto (Bld) [#/Vol] on 09-30-2024 Platelets (Bld) [#/Vol] Platelets [#/volume] in Blood by Automated count 150-450 [facility] RBC Auto (Bld) [#/Vol]on RBC (Bld) [#/Vol] Erythrocytes [#/volu me] in Blood by Automated count Low 4.70-6.10 [facility] Serum or plasma albumin/glob ulin mass ratioon 09-30-2024 Albumin/Globulin [Mass ratio] Serum or plasma albumin/globulin mass ratio [facility] Serum or plasma anion gap de terminationon 09-30-2024 Anion gap [Moles/Vol] Serum or plasma an ion gap determination [facility] Basophils Auto (Bld) [#/Vol] on 09-29-2024 Basophils (Bld) [#/Vol] Automated basophil count 0.0-0.1 [facility] Basophils/100 WBC Auto (Bld) on 09-29-2024 Basophils/100 WBC (Bld) Automated basophil % 0.2-2.0 [facility] Eosinophils/100 WBC Auto (Bl d)on 09-29-2024 Eosinophils/100 WBC (Bld) Automated eosinophil % 0.9-7.0 [facility] Erythrocyte distribution wid th Auto (RBC) [Ratio]on 09-29-2024 Erythrocyte distribution width (RBC) [Ratio] Erythrocyte distribution width [Ratio] by Automated count High 11.0-15.0 [facility] Estimated glomerular filtrat ion rate (GFR) non- Americanon 09-29-2024 GFR/1.73 sq M.predicted among non-blacks MDRD (S/P/Bld) [Vol rate/Area] Estimated glomerular filtration rate (GFR) non- >=60 mL/min/1.7 3m 2 [facility] Globulin Calc (S) [Mass/Vol] on 09-29-2024 Globulin (S) [Mass/Vol] Serum globulin measurement by calculation (mass/volume) [facility] Hematocrit Auto (Bld) [Volum e fraction]on 09-29-2024 Hematocrit (Bld) [Volume fraction] Hematocrit [Volume Fraction] of Blood by Automated count Low 42.0-54.0 [facility] Hemoglobin [Mass/volume] in Bloodon 09-29-2024 Hemoglobin (Bld) [Mass/Vol] Hemoglobin [Mass/volume] in Blood Low 14.0-18.0 [facility] INR in Platelet poor plasma by Coagulation assayon 09-29-2024 INR Coag (PPP) [Relative time] INR in Platelet poor plasma by Coagulation assay [facility] Comment on above: DESIRED INR:2.0-3.0 CONDITIONS NOT LISTED BELOW2.5-3.5 FOR PROSTHETIC HEART VALVE REPLACEMENT2.5-3.5 RECURRENT THROMBOSIS Laboratory - Chemistry and C hemistry - challengeon 09-29-2024 Albumin [Mass/Vol] 3.6 g/dL 3.4-5.0 [facility] ALP [Catalytic activity/Vol] 74 U/L 46-116 [facility] ALT [Catalytic activity/Vol] 18 U/L 16-63 [facility] AST [Catalytic activity/Vol] 9 U/L Low 15-37 [facility] Bilirubin [Mass/Vol] 0.7 mg/dL 0.2-1.0 [facility] Calcium [Mass/Vol] 9.6 mg/dL 8.5-10.1 [facility] Chloride [Moles/Vol] 101 mmol/L 98-107 [facility] CO2 [Moles/Vol] 29.6 mmol/L 21.0-32.0 [facility] Creatinine [Mass/Vol] 1.01 mg/dL 0.70-1.30 [facility] GFR/1.73 sq M.predicted MDRD (S/P/Bld) [Vol rate/Area] mL/min/{1.73_m2} >=60 mL/min/1.7 3m 2 [facility] Glucose [Mass/Vol] 160 mg/dL High 74-106 [facility] Potassium [Moles/Vol] 4.3 mmol/L 3.5-5.1 [facility] Protein [Mass/Vol] 6.7 g/dL 6.4-8.2 [facility] Sodium [Moles/Vol] 138 mmol/L 136-145 [facility] Urea nitrogen [Mass/Vol] 23.0 mg/dL High 7.0-18.0 [facility] Urea nitrogen/Creatinine [Mass ratio] 22.8 mg/mg [facility] Laboratory - Hematology and Cell countson 09-29-2024 Immature granulocytes/100 WBC (Bld) 0.3 % 0.0-0.5 [facility] Leukocytes [#/volume] correc willian for nucleated erythrocytes in Blood by Automated counon 09-29-2024 WBC corrected for nucl RBC Auto (Bld) [#/Vol] Leukocytes [#/volume] corrected for nucleated erythrocytes in Blood by Automated coun 4.0-11.0 [facility] Lymphocytes Auto (Bld) [#/Vo l]on 09-29-2024 Lymphocytes (Bld) [#/Vol] Lymphocytes [#/volume] in Blood by Automated count 1.2-3.8 [facility] Lymphocytes/100 WBC Auto (Bl d)on 09-29-2024 Lymphocytes/100 WBC (Bld) Lymphocytes/100 leukocytes in Blood by Automated count Low 20.5-60.0 [facility] MCH Auto (RBC) [Entitic mass ]on 09-29-2024 MCH (RBC) [Entitic mass] MCH [Entitic mass] by Automated count 25.9-34.0 [facility] MCHC Auto (RBC) [Mass/Vol]on 09-29-2024 MCHC (RBC) [Mass/Vol] MCHC [Mass/volume] by Automated count 29.9-35.2 [facility] MCV Auto (RBC) [Entitic vol] on 09-29-2024 MCV (RBC) [Entitic vol] MCV [Entitic volume] by Automated count 80.0-94.0 [facility] Monocytes Auto (Bld) [#/Vol] on 09-29-2024 Monocytes (Bld) [#/Vol] Automated blood monocyte count 0.3-0.8 [facility] Monocytes/100 WBC Auto (Bld) on 09-29-2024 Monocytes/100 WBC (Bld) Automated monocyte % 1.7-12.0 [facility] Neutrophils Auto (Bld) [#/Vo l]on 09-29-2024 Neutrophils (Bld) [#/Vol] Neutrophils [#/volume] in Blood by Automated count 1.4-6.5 [facility] Neutrophils/100 WBC Auto (Bl d)on 09-29-2024 Neutrophils/100 WBC (Bld) Automated neutrophil % 43.0-75.0 [facility] No Panel Informationon 09-29 Eosinophils # (Auto) 0.2 10 3/uL 0.0-0.7 [facility] Immature Granulocyte # (Auto) 0.02 10 3/uL 0.00-0.03 [facility] Platelet mean volume Auto (B ld) [Entitic vol]on 09-29-2024 Platelet mean volume (Bld) [Entitic vol] Platelet mean volume [Entitic volume] in Blood by Automated count Low 9.5-13.5 [facility] Platelets Auto (Bld) [#/Vol] on 09-29-2024 Platelets (Bld) [#/Vol] Platelets [#/volume] in Blood by Automated count 150-450 [facility] Prothrombin time (PT)on PT Coag (PPP) [Time] Prothrombin time (PT) 9.0- 11.6 [facility] RBC Auto (Bld) [#/Vol]on RBC (Bld) [#/Vol] Erythrocytes [#/volu me] in Blood by Automated count Low 4.70-6.10 [facility] Serum or plasma albumin/glob ulin mass ratioon 09-29-2024 Albumin/Globulin [Mass ratio] Serum or plasma albumin/globulin mass ratio [facility] Serum or plasma anion gap de terminationon 09-29-2024 Anion gap [Moles/Vol] Serum or plasma an ion gap determination [facility] Office Visiton 09-09-2024 Follow-up visit [id number] Vashti Massey 1955 M Date Provider Department Center 09/09/2024 Ezio8-DEBBIE ZUÑIGA CARD [facility] Family History Problem Relation Age of Onset No Known Problems Mother No Known Problems Father Heart attack Paternal Grandmother Family Status - Relation Status Age at Mother Father Paternal Grandmother Level of Service:77281 CO OFFICE/OUTPATIENT NEW MODERATE MDM 45 MINUTES Normal [facility] BASIC METABOLIC PANLon 06-11 Anion gap [Moles/Vol] 9 mmol/L Normal 5-15 [facility] Comment on above: Performed By: #### C BCA, CMP #### [facility] ([id number]) [address], [address] [place] [address] Calcium [Mass/Vol] 9.2 mg/dL Normal 8.5-10.5 [facility] Comment on above: Performed By: #### C BCA, CMP #### [facility] ([id number]) [address], [address] [place] [address] Chloride [Moles/Vol] 97 mmol/L Low 98-109 [facility] Comment on above: Performed By: #### C BCA, CMP #### [facility] ([id number]) [address], [address] [place] [address] CO2 [Moles/Vol] 29 mmol/L Normal 22-32 [facility] Comment on above: Performed By: #### C BCA, CMP #### [facility] ([id number]) [address], [address] [place] [address] Creatinine [Mass/Vol] 0.54 mg/dL Low 0.60-1.30 [facility] Comment on above: Result Comment: METH OD TRACEABLE TO IDMS STANDARD Performed By: #### C BCA, CMP #### [facility] ([id number]) [address], [address] [place] [address] eGFR (CKD-EPI) NON-RACE DEPENDENT >90 Normal >59 [facility] Comment on above: Result Comment: Reported eGFR is based on the CKD-EPI 2020 equation that does not use a race coefficient. Performed By: #### C BCA, CMP #### [facility] ([id number]) [address], [address] [place] [address] Glucose [Mass/Vol] 158 mg/dL High 65-99 [facility] Comment on above: Performed By: #### C BCA, CMP #### [facility] ([id number]) [address], [address] [place] [address] Potassium [Moles/Vol] 4.2 mmol/L Normal 3.5-5.0 [facility] Comment on above: Performed By: #### C BCA, CMP #### [facility] ([id number]) [address], [address] [place] [address] Sodium [Moles/Vol] 135 mmol/L Normal 134-146 [facility] Comment on above: Performed By: #### C BCA, CMP #### [facility] ([id number]) [address], [address] [place] [address] Urea nitrogen [Mass/Vol] 20 mg/dL Normal 5-27 [facility] Comment on above: Performed By: #### C BCA, CMP #### [facility] ([id number]) [address], [address] [place] [address] CBC AND AUTO DIFFon 0816-20 24 ABSOLUTE BASOPHIL 0.1 X10E9/L Normal 0.0-0.2 [facility] Comment on above: Performed By: #### C BCA, CMP #### [facility] ([id number]) [address], [address] [place] [address] ABSOLUTE NEUTROPHIL 2.8 X10E9/L Normal 1.5-6.6 [facility] Comment on above: Performed By: #### C BCA, CMP #### [facility] ([id number]) [address], [address] [place] [address] Basophils/100 WBC (Bld) 1.2 % Normal [facility] Comment on above: Performed By: #### C BCA, CMP #### [facility] ([id number]) [address] [place] [address] Eosinophils (Bld) [#/Vol] 0.1 10*3/uL Normal 0.0-0.4 [facility] Comment on above: Performed By: #### C BCA, CMP #### [facility] ([id number]) [address] [address] Eosinophils/100 WBC (Bld) 2.1 % Normal [facility] Comment on above: Performed By: #### C BCA, CMP #### [facility] ([id number]) [address] [address] Erythrocyte distribution width (RBC) [Ratio] 15.6 % High 11.5-15.0 [facility] Comment on above: Performed By: #### C BCA, CMP #### [facility] ([id number]) [address] [place] [address] Hematocrit (Bld) [Volume fraction] 34.3 % Low 39-49 [facility] Comment on above: Performed By: #### C BCA, CMP #### [facility] ([id number]) [address] [facility] [place] [address] Hemoglobin (Bld) [Mass/Vol] 11.6 g/dL Low 13.0-17.0 [facility] Comment on above: Performed By: #### C BCA, CMP #### [facility] ([id number]) [address] [address] Lymphocytes (Bld) [#/Vol] 1.0 10*3/uL Normal 1.0-3.5 [facility] Comment on above: Performed By: #### C BCA, CMP #### [facility] ([id number]) [address], [address] [place] [address] Lymphocytes/100 WBC (Bld) 23.1 % Normal [facility] Comment on above: Performed By: #### C BCA, CMP #### [facility] ([id number]) [address] [place] [address] MCH (RBC) [Entitic mass] 27.1 pg Normal 27-34 [facility] Comment on above: Performed By: #### C BCA, CMP #### [facility] ([id number]) [address], [address] [place] [address] MCHC (RBC) [Mass/Vol] 33.9 g/dL Normal 32-36 [facility] Comment on above: Performed By: #### C BCA, CMP #### [facility] ([id number]) [address], [address] [place] [address] MCV (RBC) [Entitic vol] 80 fL Normal 80-100 [facility] Comment on above: Performed By: #### C BCA, CMP #### [facility] ([id number]) [address] [place] [address] Monocytes (Bld) [#/Vol] 0.4 10*3/uL Normal 0-0.9 [facility] Comment on above: Performed By: #### C BCA, CMP #### [facility] ([id number]) [address], [address] [place] [address] Monocytes/100 WBC (Bld) 9.6 % Normal [facility] Comment on above: Performed By: #### C BCA, CMP #### [facility] ([id number]) [address], [address] [place] [address] Neutrophils/100 WBC (Bld) 64.0 % Normal [facility] Comment on above: Performed By: #### C BCA, CMP #### [facility] ([id number]) [address], [address] [place] [address] Platelet mean volume (Bld) [Entitic vol] 7.0 fL Normal 7-12 [facility] Comment on above: Performed By: #### Thais SHARMA, CMP #### [facility] ([id number]) [address], [address] [place] [address] Platelets (Bld) [#/Vol] 284 10*3/uL Normal 150-450 [facility] Comment on above: Performed By: #### C ZACHARY, CMP #### [facility] ([id number]) [address], [address] [place] [address] RBC COUNT 4.29 X10E12/L Normal 4.10-5.70 [facility] Comment on above: Performed By: #### Thais SHARMA, CMP #### [facility] ([id number]) [address], [address] [place] [address] WBC (Bld) [#/Vol] 4.4 10*3/uL Normal 4.0-11.0 [facility] Comment on above: Performed By: #### C ZACHARY, CMP #### [facility] ([id number]) [address], [address] [place] [address] Glucose Glucometer (BldC) [M ass/Vol]on 06-11-2024 Glucose [Mass/Vol] 220 mg/dL High 65-99 [facility] Glucose [Mass/Vol] 210 mg/dL High 65-99 [facility] Glucose [Mass/Vol] 245 mg/dL High 65-99 [facility] Glucose [Mass/Vol] 164 mg/dL High 65-99 [facility] BASIC METABOLIC PANLon 06-10 Anion gap [Moles/Vol] 10 mmol/L Normal 5-15 [facility] Comment on above: Performed By: #### Thais SHARMA, CMP #### [facility] ([id number]) [address], [address] [place] [address] Calcium [Mass/Vol] 9.3 mg/dL Normal 8.5-10.5 [facility] Comment on above: Performed By: #### C BCA, CMP #### [facility] ([id number]) [address], [address] [place] [address] Chloride [Moles/Vol] 96 mmol/L Low 98-109 [facility] Comment on above: Performed By: #### C BCA, CMP #### [facility] ([id number]) [address], [address] [place] [address] CO2 [Moles/Vol] 28 mmol/L Normal 22-32 [facility] Comment on above: Performed By: #### C BCA, CMP #### [facility] ([id number]) [address] [address] [place] [address] Creatinine [Mass/Vol] 0.58 mg/dL Low 0.60-1.30 [facility] Comment on above: Result Comment: METH OD TRACEABLE TO IDMS STANDARD Performed By: #### C BCA, CMP #### [facility] ([id number]) [address] [place] [address] eGFR (CKD-EPI) NON-RACE DEPENDENT >90 Normal >59 [facility] Comment on above: Result Comment: Reported eGFR is based on the CKD-EPI 1 equation that does not use a race coefficient. Performed By: #### C BCA, CMP #### [facility] ([id number]) [address], [address] [place] [address] Glucose [Mass/Vol] 173 mg/dL High 65-99 [facility] Comment on above: Performed By: #### C BCA, CMP #### [facility] ([id number]) [address], [address] [place] [address] Potassium [Moles/Vol] 4.1 mmol/L Normal 3.5-5.0 [facility] Comment on above: Performed By: #### C BCA, CMP #### [facility] ([id number]) [address] [place] [address] Sodium [Moles/Vol] 134 mmol/L Normal 134-146 [facility] Comment on above: Performed By: #### C BCA, CMP #### [facility] ([id number]) [address] [facility] [address] [place] [address] Urea nitrogen [Mass/Vol] 18 mg/dL Normal 5-27 [facility] Comment on above: Performed By: #### C BCA, CMP #### [facility] ([id number]) [address] [place] [address] CBC AND AUTO DIFFon 15 24 ABSOLUTE BASOPHIL 0.0 X10E9/L Normal 0.0-0.2 [facility] Comment on above: Performed By: #### C BCA, CMP #### [facility] ([id number]) [address] [place] [address] ABSOLUTE NEUTROPHIL 2.6 X10E9/L Normal 1.5-6.6 [facility] Comment on above: Performed By: #### C BCA, CMP #### [facility] ([id number]) [address] [address] Basophils/100 WBC (Bld) 1.0 % Normal [facility] Comment on above: Performed By: #### C BCA, CMP #### [facility] ([id number]) [address] [facility] [place] [address] Eosinophils (Bld) [#/Vol] 0.1 10*3/uL Normal 0.0-0.4 [facility] Comment on above: Performed By: #### C BCA, CMP #### [facility] ([id number]) [address] [place] [address] Eosinophils/100 WBC (Bld) 1.9 % Normal [facility] Comment on above: Performed By: #### C ZACHARY, CMP #### [facility] ([id number]) [address] [place] [address] Erythrocyte distribution width (RBC) [Ratio] 15.8 % High 11.5-15.0 [facility] Comment on above: Performed By: #### C ZACHARY, CMP #### [facility] ([id number]) [address] [place] [address] Hematocrit (Bld) [Volume fraction] 34.3 % Low 39-49 [facility] Comment on above: Performed By: #### C ZACHARY, CMP #### [facility] ([id number]) [address] [place] [address] Hemoglobin (Bld) [Mass/Vol] 11.3 g/dL Low 13.0-17.0 [facility] Comment on above: Performed By: #### C ZACHARY, CMP #### [facility] ([id number]) [address] [place] [address] Lymphocytes (Bld) [#/Vol] 1.1 10*3/uL Normal 1.0-3.5 [facility] Comment on above: Performed By: #### C ZACHARY, CMP #### [facility] ([id number]) [address] [place] [address] Lymphocytes/100 WBC (Bld) 26.6 % Normal [facility] Comment on above: Performed By: #### C BCA, CMP #### [facility] ([id number]) [address], [address] [place] [address] MCH (RBC) [Entitic mass] 26.4 pg Low 27-34 [facility] Comment on above: Performed By: #### C BCA, CMP #### [facility] ([id number]) [address], [address] [place] [address] MCHC (RBC) [Mass/Vol] 32.8 g/dL Normal 32-36 [facility] Comment on above: Performed By: #### C BCA, CMP #### [facility] ([id number]) [address], [address] [place] [address] MCV (RBC) [Entitic vol] 80 fL Normal 80-100 [facility] Comment on above: Performed By: #### C ZACHARY, CMP #### [facility] ([id number]) [address] [place] [address] Monocytes (Bld) [#/Vol] 0.4 10*3/uL Normal 0-0.9 [facility] Comment on above: Performed By: #### C ZACHARY, CMP #### [facility] ([id number]) [address] [place] [address] Monocytes/100 WBC (Bld) 8.2 % Normal [facility] Comment on above: Performed By: #### C ZACHARY, CMP #### [facility] ([id number]) [address], [address] [place] [address] Neutrophils/100 WBC (Bld) 62.3 % Normal [facility] Comment on above: Performed By: #### C BCA, CMP #### [facility] ([id number]) [address] [place] [address] Platelet mean volume (Bld) [Entitic vol] 7.0 fL Normal 7-12 [facility] Comment on above: Performed By: #### C BCA, CMP #### [facility] ([id number]) [address] [place] [address] Platelets (Bld) [#/Vol] 290 10*3/uL Normal 150-450 [facility] Comment on above: Performed By: #### C BCA, CMP #### [facility] ([id number]) [address] [place] [address] RBC COUNT 4.26 X10E12/L Normal 4.10-5.70 [facility] Comment on above: Performed By: #### C BCA, CMP #### [facility] ([id number]) [address] [place] [address] WBC (Bld) [#/Vol] 4.3 10*3/uL Normal 4.0-11.0 [facility] Comment on above: Performed By: #### C BCA, CMP #### [facility] ([id number]) [address] [place] [address] Glucose Glucometer (BldC) [M ass/Vol]on 06-10-2024 Glucose [Mass/Vol] 258 mg/dL High 65-99 [facility] Glucose [Mass/Vol] 272 mg/dL High 65-99 [facility] Glucose [Mass/Vol] 275 mg/dL High 65-99 [facility] Glucose [Mass/Vol] 175 mg/dL High 65-99 [facility] Glucose [Mass/Vol] 168 mg/dL High 65-99 [facility] Glucose [Mass/Vol] 181 mg/dL High 65-99 [facility] BASIC METABOLIC PANLon 06-09 Anion gap [Moles/Vol] 8 mmol/L Normal 5-15 [facility] Comment on above: Performed By: #### C BCA, CMP #### [facility] ([id number]) [address], [address] [place] [address] Calcium [Mass/Vol] 8.9 mg/dL Normal 8.5-10.5 [facility] Comment on above: Performed By: #### C BCA, CMP #### [facility] ([id number]) [address], [address] [place] [address] Chloride [Moles/Vol] 98 mmol/L Normal 98-109 [facility] Comment on above: Performed By: #### C BCA, CMP #### [facility] ([id number]) [address], [address] [place] [address] CO2 [Moles/Vol] 29 mmol/L Normal 22-32 [facility] Comment on above: Performed By: #### C BCA, CMP #### [facility] ([id number]) [address] [place] [address] Creatinine [Mass/Vol] 0.51 mg/dL Low 0.60-1.30 [facility] Comment on above: Result Comment: METH OD TRACEABLE TO IDMS STANDARD Performed By: #### C BCA, CMP #### [facility] ([id number]) [address], [address] [place] [address] eGFR (CKD-EPI) NON-RACE DEPENDENT >90 Normal >59 [facility] Comment on above: Result Comment: Reported eGFR is based on the CKD-EPI 2020 equation that does not use a race coefficient. Performed By: #### C BCA, CMP #### [facility] ([id number]) [address], [address] [place] [address] Glucose [Mass/Vol] 174 mg/dL High 65-99 [facility] Comment on above: Performed By: #### C BCA, CMP #### [facility] ([id number]) [address], [address] [place] [address] Potassium [Moles/Vol] 4.2 mmol/L Normal 3.5-5.0 [facility] Comment on above: Performed By: #### C BCA, CMP #### [facility] ([id number]) [address], [address] [place] [address] Sodium [Moles/Vol] 135 mmol/L Normal 134-146 [facility] Comment on above: Performed By: #### C BCA, CMP #### [facility] ([id number]) [address], [address] [place] [address] Urea nitrogen [Mass/Vol] 13 mg/dL Normal 5-27 [facility] Comment on above: Performed By: #### C BCA, CMP #### [facility] ([id number]) [address], [facility] [address] [place] [address] CBC AND AUTO DIFFon 06-09-20 24 ABSOLUTE BASOPHIL 0.1 X10E9/L Normal 0.0-0.2 [facility] Comment on above: Performed By: #### C BCA, CMP #### [facility] ([id number]) [address] [address] [place] [address] ABSOLUTE NEUTROPHIL 2.4 X10E9/L Normal 1.5-6.6 [facility] Comment on above: Performed By: #### C BCA, CMP #### [facility] ([id number]) [address], [address] [place] [address] Basophils/100 WBC (Bld) 1.4 % Normal [facility] Comment on above: Performed By: #### C BCA, CMP #### [facility] ([id number]) [address] [address] [place] [address] Eosinophils (Bld) [#/Vol] 0.1 10*3/uL Normal 0.0-0.4 [facility] Comment on above: Performed By: #### C BCA, CMP #### [facility] ([id number]) [address] [address] [place] [address] Eosinophils/100 WBC (Bld) 3.1 % Normal [facility] Comment on above: Performed By: #### C BCA, CMP #### [facility] ([id number]) [address], [address] [place] [address] Erythrocyte distribution width (RBC) [Ratio] 16.2 % High 11.5-15.0 [facility] Comment on above: Performed By: #### C BCA, CMP #### [facility] ([id number]) [address], [address] [place] [address] Hematocrit (Bld) [Volume fraction] 33.5 % Low 39-49 [facility] Comment on above: Performed By: #### C ZACHARY, CMP #### [facility] ([id number]) [address], [address] [place] [address] Hemoglobin (Bld) [Mass/Vol] 11.3 g/dL Low 13.0-17.0 [facility] Comment on above: Performed By: #### C ZACHARY, CMP #### [facility] ([id number]) [address], [address] [place] [address] Lymphocytes (Bld) [#/Vol] 1.2 10*3/uL Normal 1.0-3.5 [facility] Comment on above: Performed By: #### C ZACHARY, CMP #### [facility] ([id number]) [address], [address] [place] [address] Lymphocytes/100 WBC (Bld) 28.7 % Normal [facility] Comment on above: Performed By: #### C ZACHARY, CMP #### [facility] ([id number]) [address], [address] [place] [address] MCH (RBC) [Entitic mass] 27.0 pg Normal 27-34 [facility] Comment on above: Performed By: #### C BCA, CMP #### [facility] ([id number]) [address], [address] [place] [address] MCHC (RBC) [Mass/Vol] 33.6 g/dL Normal 32-36 [facility] Comment on above: Performed By: #### C BCA, CMP #### [facility] ([id number]) [address], [address] [place] [address] MCV (RBC) [Entitic vol] 80 fL Normal 80-100 [facility] Comment on above: Performed By: #### C BCA, CMP #### [facility] ([id number]) [address], [address] [place] [address] Monocytes (Bld) [#/Vol] 0.3 10*3/uL Normal 0-0.9 [facility] Comment on above: Performed By: #### C ZACHARY, CMP #### [facility] ([id number]) [address], [address] [place] [address] Monocytes/100 WBC (Bld) 7.6 % Normal [facility] Comment on above: Performed By: #### C ZACHARY, CMP #### [facility] ([id number]) [address], [address] [place] [address] Neutrophils/100 WBC (Bld) 59.2 % Normal [facility] Comment on above: Performed By: #### C ZACHARY, CMP #### [facility] ([id number]) [address], [address] [place] [address] Platelet mean volume (Bld) [Entitic vol] 6.9 fL Low 7-12 [facility] Comment on above: Performed By: #### C BCA, CMP #### [facility] ([id number]) [address], [address] [place] [address] Platelets (Bld) [#/Vol] 280 10*3/uL Normal 150-450 [facility] Comment on above: Performed By: #### C BCA, CMP #### [facility] ([id number]) [address], [address] [place] [address] RBC COUNT 4.17 X10E12/L Normal 4.10-5.70 [facility] Comment on above: Performed By: #### C BCA, CMP #### [facility] ([id number]) [address], [address] [place] [address] WBC (Bld) [#/Vol] 4.1 10*3/uL Normal 4.0-11.0 [facility] Comment on above: Performed By: #### C BCA, CMP #### [facility] ([id number]) [address], [address] [place] [address] Glucose Glucometer (BldC) [M ass/Vol]on 06-09-2024 Glucose [Mass/Vol] 215 mg/dL High 65-99 [facility] Glucose [Mass/Vol] 217 mg/dL High 65-99 [facility] BASIC METABOLIC PANLon 06-08 Anion gap [Moles/Vol] 9 mmol/L Normal 5-15 [facility] Comment on above: Performed By: #### C BCA, CMP #### [facility] ([id number]) [address], [address] [place] [address] Calcium [Mass/Vol] 8.7 mg/dL Normal 8.5-10.5 [facility] Comment on above: Performed By: #### C BCA, CMP #### [facility] ([id number]) [address], [address] [place] [address] Chloride [Moles/Vol] 99 mmol/L Normal 98-109 [facility] Comment on above: Performed By: #### C BCA, CMP #### [facility] ([id number]) [address], [address] [place] [address] CO2 [Moles/Vol] 27 mmol/L Normal 22-32 [facility] Comment on above: Performed By: #### C BCA, CMP #### [facility] ([id number]) [address] [place] [address] Creatinine [Mass/Vol] 0.64 mg/dL Normal 0.60-1.30 [facility] Comment on above: Result Comment: METH OD TRACEABLE TO IDMS STANDARD Performed By: #### C BCA, CMP #### [facility] ([id number]) [address] [address] [place] [address] eGFR (CKD-EPI) NON-RACE DEPENDENT >90 Normal >59 [facility] Comment on above: Result Comment: Reported eGFR is based on the CKD-EPI 2020 equation that does not use a race coefficient. Performed By: #### C BCA, CMP #### [facility] ([id number]) [address] [address] Glucose [Mass/Vol] 166 mg/dL High 65-99 [facility] Comment on above: Performed By: #### C BCA, CMP #### [facility] ([id number]) [address] [address] Potassium [Moles/Vol] 4.2 mmol/L Normal 3.5-5.0 [facility] Comment on above: Performed By: #### C BCA, CMP #### [facility] ([id number]) [address] [address] Sodium [Moles/Vol] 135 mmol/L Normal 134-146 [facility] Comment on above: Performed By: #### C BCA, CMP #### [facility] ([id number]) [address] [address] Urea nitrogen [Mass/Vol] 16 mg/dL Normal 5-27 [facility] Comment on above: Performed By: #### C BCA, CMP #### [facility] ([id number]) [address] [address] CBC AND AUTO DIFFon 06-08-20 24 ABSOLUTE BASOPHIL 0.1 X10E9/L Normal 0.0-0.2 [facility] Comment on above: Performed By: #### C BCA, CMP #### [facility] ([id number]) [address], [address] [place] [address] ABSOLUTE NEUTROPHIL 3.8 X10E9/L Normal 1.5-6.6 [facility] Comment on above: Performed By: #### C BCA, CMP #### [facility] ([id number]) [address], [address] [place] [address] Basophils/100 WBC (Bld) 1.1 % Normal [facility] Comment on above: Performed By: #### C BCA, CMP #### [facility] ([id number]) [address], [address] [place] [address] Eosinophils (Bld) [#/Vol] 0.1 10*3/uL Normal 0.0-0.4 [facility] Comment on above: Performed By: #### C BCA, CMP #### [facility] ([id number]) [address] [place] [address] Eosinophils/100 WBC (Bld) 1.6 % Normal [facility] Comment on above: Performed By: #### C BCA, CMP #### [facility] ([id number]) [address] [place] [address] Erythrocyte distribution width (RBC) [Ratio] 15.4 % High 11.5-15.0 [facility] Comment on above: Performed By: #### C BCA, CMP #### [facility] ([id number]) [address] [address] [place] [address] Hematocrit (Bld) [Volume fraction] 32.3 % Low 39-49 [facility] Comment on above: Performed By: #### C BCA, CMP #### [facility] ([id number]) [address], [address] [place] [address] Hemoglobin (Bld) [Mass/Vol] 10.8 g/dL Low 13.0-17.0 [facility] Comment on above: Performed By: #### C BCA, CMP #### [facility] ([id number]) [address], [address] [place] [address] Lymphocytes (Bld) [#/Vol] 1.2 10*3/uL Normal 1.0-3.5 [facility] Comment on above: Performed By: #### C ZACHARY, CMP #### [facility] ([id number]) [address], [address] [place] [address] Lymphocytes/100 WBC (Bld) 21.2 % Normal [facility] Comment on above: Performed By: #### C ZACHARY, CMP #### [facility] ([id number]) [address], [address] [place] [address] MCH (RBC) [Entitic mass] 26.9 pg Low 27-34 [facility] Comment on above: Performed By: #### C ZACHARY, CMP #### [facility] ([id number]) [address], [address] [place] [address] MCHC (RBC) [Mass/Vol] 33.3 g/dL Normal 32-36 [facility] Comment on above: Performed By: #### C BCA, CMP #### [facility] ([id number]) [address], [address] [place] [address] MCV (RBC) [Entitic vol] 81 fL Normal 80-100 [facility] Comment on above: Performed By: #### C BCA, CMP #### [facility] ([id number]) [address] [place] [address] Monocytes (Bld) [#/Vol] 0.3 10*3/uL Normal 0-0.9 [facility] Comment on above: Performed By: #### C BCA, CMP #### [facility] ([id number]) [address] [place] [address] Monocytes/100 WBC (Bld) 5.8 % Normal [facility] Comment on above: Performed By: #### C BCA, CMP #### [facility] ([id number]) [address] [place] [address] Neutrophils/100 WBC (Bld) 70.3 % Normal [facility] Comment on above: Performed By: #### C ZACHARY, CMP #### [facility] ([id number]) [address] [place] [address] Platelet mean volume (Bld) [Entitic vol] 7.1 fL Normal 7-12 [facility] Comment on above: Performed By: #### C ZACHARY, CMP #### [facility] ([id number]) [address] [place] [address] Platelets (Bld) [#/Vol] 269 10*3/uL Normal 150-450 [facility] Comment on above: Performed By: #### C ZACHARY, CMP #### [facility] ([id number]) [address] [place] [address] RBC COUNT 4.00 X10E12/L Low 4.10-5.70 [facility] Comment on above: Performed By: #### C ZACHARY, CMP #### [facility] ([id number]) [address], [address] [place] [address] WBC (Bld) [#/Vol] 5.5 10*3/uL Normal 4.0-11.0 [facility] Comment on above: Performed By: #### C BCA, CMP #### [facility] ([id number]) [address], [address] [place] [address] Glucose Glucometer (BldC) [M ass/Vol]on 06-08-2024 Glucose [Mass/Vol] 175 mg/dL High 65-99 [facility] Glucose [Mass/Vol] 239 mg/dL High 65-99 [facility] BASIC METABOLIC PANLon 06-07 Anion gap [Moles/Vol] 9 mmol/L Normal 5-15 [facility] Comment on above: Performed By: #### C BCA, CMP #### [facility] ([id number]) [address], [address] [place] [address] Calcium [Mass/Vol] 8.7 mg/dL Normal 8.5-10.5 [facility] Comment on above: Performed By: #### C BCA, CMP #### [facility] ([id number]) [address] [place] [address] Chloride [Moles/Vol] 100 mmol/L Normal 98-109 [facility] Comment on above: Performed By: #### C BCA, CMP #### [facility] ([id number]) [address] [place] [address] CO2 [Moles/Vol] 26 mmol/L Normal 22-32 [facility] Comment on above: Performed By: #### C BCA, CMP #### [facility] ([id number]) [address] [place] [address] Creatinine [Mass/Vol] 0.63 mg/dL Normal 0.60-1.30 [facility] Comment on above: Result Comment: METH OD TRACEABLE TO IDMS STANDARD Performed By: #### C BCA, CMP #### [facility] ([id number]) [address], [address] [place] [address] eGFR (CKD-EPI) NON-RACE DEPENDENT >90 Normal >59 [facility] Comment on above: Result Comment: Reported eGFR is based on the CKD-EPI 2020 equation that does not use a race coefficient. Performed By: #### C BCA, CMP #### [facility] ([id number]) [address] [place] [address] Glucose [Mass/Vol] 161 mg/dL High 65-99 [facility] Comment on above: Performed By: #### C BCA, CMP #### [facility] ([id number]) [address], [address] [place] [address] Potassium [Moles/Vol] 4.2 mmol/L Normal 3.5-5.0 [facility] Comment on above: Performed By: #### C BCA, CMP #### [facility] ([id number]) [address] [place] [address] Sodium [Moles/Vol] 135 mmol/L Normal 134-146 [facility] Comment on above: Performed By: #### C BCA, CMP #### [facility] ([id number]) [address] [place] [address] Urea nitrogen [Mass/Vol] 15 mg/dL Normal 5-27 [facility] Comment on above: Performed By: #### C BCA, CMP #### [facility] ([id number]) [address] [place] [address] CBC AND AUTO DIFFon 0812-20 24 ABSOLUTE BASOPHIL 0.1 X10E9/L Normal 0.0-0.2 [facility] Comment on above: Performed By: #### C BCA, CMP #### [facility] ([id number]) [address] [place] [address] ABSOLUTE NEUTROPHIL 4.2 X10E9/L Normal 1.5-6.6 [facility] Comment on above: Performed By: #### C BCA, CMP #### [facility] ([id number]) [address] [place] [address] Basophils/100 WBC (Bld) 1.0 % Normal [facility] Comment on above: Performed By: #### C BCA, CMP #### [facility] ([id number]) [address] [address] [place] [address] Eosinophils (Bld) [#/Vol] 0.1 10*3/uL Normal 0.0-0.4 [facility] Comment on above: Performed By: #### C BCA, CMP #### [facility] ([id number]) [address] [address] Eosinophils/100 WBC (Bld) 1.5 % Normal [facility] Comment on above: Performed By: #### C ZACHARY, CMP #### [facility] ([id number]) [address] [address] Erythrocyte distribution width (RBC) [Ratio] 15.7 % High 11.5-15.0 [facility] Comment on above: Performed By: #### C ZACHARY, CMP #### [facility] ([id number]) [address] [address] [place] [address] Hematocrit (Bld) [Volume fraction] 32.5 % Low 39-49 [facility] Comment on above: Performed By: #### C BCA, CMP #### [facility] ([id number]) [address] [address] [place] [address] Hemoglobin (Bld) [Mass/Vol] 10.8 g/dL Low 13.0-17.0 [facility] Comment on above: Performed By: #### C BCA, CMP #### [facility] ([id number]) [address] [address] [place] [address] Lymphocytes (Bld) [#/Vol] 1.2 10*3/uL Normal 1.0-3.5 [facility] Comment on above: Performed By: #### C BCA, CMP #### [facility] ([id number]) [address] [address] [place] [address] Lymphocytes/100 WBC (Bld) 19.6 % Normal [facility] Comment on above: Performed By: #### C BCA, CMP #### [facility] ([id number]) [address] [place] [address] MCH (RBC) [Entitic mass] 26.8 pg Low 27-34 [facility] Comment on above: Performed By: #### C BCA, CMP #### [facility] ([id number]) [address] [place] [address] MCHC (RBC) [Mass/Vol] 33.3 g/dL Normal 32-36 [facility] Comment on above: Performed By: #### C BCA, CMP #### [facility] ([id number]) [address] [place] [address] MCV (RBC) [Entitic vol] 81 fL Normal 80-100 [facility] Comment on above: Performed By: #### C BCA, CMP #### [facility] ([id number]) [address] [place] [address] Monocytes (Bld) [#/Vol] 0.4 10*3/uL Normal 0-0.9 [facility] Comment on above: Performed By: #### C BCA, CMP #### [facility] ([id number]) [address] [place] [address] Monocytes/100 WBC (Bld) 6.8 % Normal [facility] Comment on above: Performed By: #### C BCA, CMP #### [facility] ([id number]) [address] [place] [address] Neutrophils/100 WBC (Bld) 71.1 % Normal [facility] Comment on above: Performed By: #### C BCA, CMP #### [facility] ([id number]) [address] [place] [address] Platelet mean volume (Bld) [Entitic vol] 7.0 fL Normal 7-12 [facility] Comment on above: Performed By: #### Thais SHARMA, CMP #### [facility] ([id number]) [address] [place] [address] Platelets (Bld) [#/Vol] 276 10*3/uL Normal 150-450 [facility] Comment on above: Performed By: #### C ZACHARY, CMP #### [facility] ([id number]) [address] [place] [address] RBC COUNT 4.03 X10E12/L Low 4.10-5.70 [facility] Comment on above: Performed By: #### Thais SHARMA, CMP #### [facility] ([id number]) [address] [place] [address] WBC (Bld) [#/Vol] 5.9 10*3/uL Normal 4.0-11.0 [facility] Comment on above: Performed By: #### Thais SHARMA, CMP #### [facility] ([id number]) [address] [place] [address] Glucose Glucometer (dC) [M ass/Vol]on 06-07-2024 Glucose [Mass/Vol] 187 mg/dL High 65-99 [facility] Glucose [Mass/Vol] 182 mg/dL High 65-99 [facility] Glucose [Mass/Vol] 233 mg/dL High 65-99 [facility] Glucose [Mass/Vol] 153 mg/dL High 65-99 [facility] BASIC METABOLIC PANLon 06-06 Anion gap [Moles/Vol] 10 mmol/L Normal 5-15 [facility] Comment on above: Performed By: #### Thais SHARMA, CMP #### [facility] ([id number]) [address] [place] [address] Calcium [Mass/Vol] 8.5 mg/dL Normal 8.5-10.5 [facility] Comment on above: Performed By: #### C BCA, CMP #### [facility] ([id number]) [address] [place] [address] Chloride [Moles/Vol] 103 mmol/L Normal 98-109 [facility] Comment on above: Performed By: #### C BCA, CMP #### [facility] ([id number]) [address] [place] [address] CO2 [Moles/Vol] 22 mmol/L Normal 22-32 [facility] Comment on above: Performed By: #### C BCA, CMP #### [facility] ([id number]) [address] [place] [address] Creatinine [Mass/Vol] 0.55 mg/dL Low 0.60-1.30 [facility] Comment on above: Result Comment: METH OD TRACEABLE TO IDMS STANDARD Performed By: #### C ZACHARY, CMP #### [facility] ([id number]) [address], [address] [place] [address] eGFR (CKD-EPI) NON-RACE DEPENDENT >90 Normal >59 [facility] Comment on above: Result Comment: Reported eGFR is based on the CKD-EPI 2020 equation that does not use a race coefficient. Performed By: #### C BCA, CMP #### [facility] ([id number]) [address], [address] [place] [address] Glucose [Mass/Vol] 237 mg/dL High 65-99 [facility] Comment on above: Performed By: #### C BCA, CMP #### [facility] ([id number]) [address], [address] [place] [address] Potassium [Moles/Vol] 3.8 mmol/L Normal 3.5-5.0 [facility] Comment on above: Performed By: #### C BCA, CMP #### [facility] ([id number]) [address] [place] [address] Sodium [Moles/Vol] 135 mmol/L Normal 134-146 [facility] Comment on above: Performed By: #### C BCA, CMP #### [facility] ([id number]) [address] [place] [address] Urea nitrogen [Mass/Vol] 12 mg/dL Normal 5-27 [facility] Comment on above: Performed By: #### C BCA, CMP #### [facility] ([id number]) [address] [address] CBC AND AUTO DIFFon 06-06-20 ABSOLUTE BASOPHIL 0.1 X10E9/L Normal 0.0-0.2 [facility] Comment on above: Performed By: #### C BCA, CMP #### [facility] ([id number]) [address] [place] [address] ABSOLUTE NEUTROPHIL 4.6 X10E9/L Normal 1.5-6.6 [facility] Comment on above: Performed By: #### C BCA, CMP #### [facility] ([id number]) [address] [address] Basophils/100 WBC (Bld) 1.0 % Normal [facility] Comment on above: Performed By: #### C BCA, CMP #### [facility] ([id number]) [address] [address] Eosinophils (Bld) [#/Vol] 0.1 10*3/uL Normal 0.0-0.4 [facility] Comment on above: Performed By: #### C BCA, CMP #### [facility] ([id number]) [address], [address] [place] [address] Eosinophils/100 WBC (Bld) 1.8 % Normal [facility] Comment on above: Performed By: #### C ZACHARY, CMP #### [facility] ([id number]) [address] [place] [address] Erythrocyte distribution width (RBC) [Ratio] 15.7 % High 11.5-15.0 [facility] Comment on above: Performed By: #### C BCA, CMP #### [facility] ([id number]) [address] [place] [address] Hematocrit (Bld) [Volume fraction] 33.0 % Low 39-49 [facility] Comment on above: Performed By: #### C ZACHARY, CMP #### [facility] ([id number]) [address] [place] [address] Hemoglobin (Bld) [Mass/Vol] 11.1 g/dL Low 13.0-17.0 [facility] Comment on above: Performed By: #### C ZACHARY, CMP #### [facility] ([id number]) [address] [place] [address] Lymphocytes (Bld) [#/Vol] 1.1 10*3/uL Normal 1.0-3.5 [facility] Comment on above: Performed By: #### C BCA, CMP #### [facility] ([id number]) [address] [place] [address] Lymphocytes/100 WBC (Bld) 17.4 % Normal [facility] Comment on above: Performed By: #### C BCA, CMP #### [facility] ([id number]) [address], [address] [place] [address] MCH (RBC) [Entitic mass] 27.5 pg Normal 27-34 [facility] Comment on above: Performed By: #### C BCA, CMP #### [facility] ([id number]) [address], [address] [place] [address] MCHC (RBC) [Mass/Vol] 33.8 g/dL Normal 32-36 [facility] Comment on above: Performed By: #### C BCA, CMP #### [facility] ([id number]) [address], [address] [place] [address] MCV (RBC) [Entitic vol] 82 fL Normal 80-100 [facility] Comment on above: Performed By: #### C ZACHARY, CMP #### [facility] ([id number]) [address], [address] [place] [address] Monocytes (Bld) [#/Vol] 0.4 10*3/uL Normal 0-0.9 [facility] Comment on above: Performed By: #### C ZACHARY, CMP #### [facility] ([id number]) [address] [place] [address] Monocytes/100 WBC (Bld) 5.8 % Normal [facility] Comment on above: Performed By: #### C ZACHARY, CMP #### [facility] ([id number]) [address], [address] [place] [address] Neutrophils/100 WBC (Bld) 74.0 % Normal [facility] Comment on above: Performed By: #### C ZACHARY, CMP #### [facility] ([id number]) [address], [address] [place] [address] Platelet mean volume (Bld) [Entitic vol] 6.9 fL Low 7-12 [facility] Comment on above: Performed By: #### C BCA, CMP #### [facility] ([id number]) [address], [address] [place] [address] Platelets (Bld) [#/Vol] 272 10*3/uL Normal 150-450 [facility] Comment on above: Performed By: #### C BCA, CMP #### [facility] ([id number]) [address], [address] [place] [address] RBC COUNT 4.05 X10E12/L Low 4.10-5.70 [facility] Comment on above: Performed By: #### C BCA, CMP #### [facility] ([id number]) [address] [place] [address] WBC (Bld) [#/Vol] 6.2 10*3/uL Normal 4.0-11.0 [facility] Comment on above: Performed By: #### C BCA, CMP #### [facility] ([id number]) [address], [address] [place] [address] CT [address]RA[address] CONT[address] CT BRAIN WO [...] Beatty MD on 06/06/2024 5:57 AM Normal [facility] Glucose Glucometer (BldC) [M ass/Vol]on 06-06-2024 Glucose [Mass/Vol] 189 mg/dL High 65-99 [facility] Glucose [Mass/Vol] 140 mg/dL High 65-99 [facility] Glucose [Mass/Vol] 129 mg/dL High 65-99 [facility] Glucose [Mass/Vol] 231 mg/dL High 65-99 [facility] AMYLASEon 06-05-2024 Amylase [Catalytic activity/Vol] 30 U/L Normal 28-100 [facility] Comment on above: Performed By: #### C BCA, 29305-6, PINR, 32880-5, 1798-8, CMP, 3040-3, 5643-2 ####[facility] ([id number])[address], [place] [address] CBC AND AUTO DIFFon 06-05-20 24 ABSOLUTE BASOPHIL 0.1 X10E9/L Normal 0.0-0.2 [facility] Comment on above: Performed By: #### C BCA, 54638-7, PINR, 31831-0, 1798-8, CMP, 3040-3, 5643-2 ####[facility] ([id number])[address], [address] [place] [address] ABSOLUTE NEUTROPHIL 4.6 X10E9/L Normal 1.5-6.6 [facility] Comment on above: Performed By: #### C BCA, 10225-3, PINR, 20773-1, 1798-8, CMP, 3040-3, 5643-2 ####[facility] ([id number])[address], [address] [place] [address] Basophils/100 WBC (Bld) 0.9 % Normal [facility] Comment on above: Performed By: #### C BCA, 25731-7, PINR, 04528-9, 1798-8, CMP, 3040-3, 5643-2 ####[facility] ([id number])[address], [address] [place] [address] Eosinophils (Bld) [#/Vol] 0.1 10*3/uL Normal 0.0-0.4 [facility] Comment on above: Performed By: #### C BCA, 91291-9, PINR, 77989-4, 1798-8, CMP, 3040-3, 5643-2 ####[facility] ([id number])[address] [address] [place] [address] Eosinophils/100 WBC (Bld) 2.0 % Normal [facility] Comment on above: Performed By: #### C BCA, 94054-2, PINR, 91288-6, 1798-8, CMP, 3040-3, 5643-2 ####[facility] ([id number])[address] [address] Erythrocyte distribution width (RBC) [Ratio] 15.8 % High 11.5-15.0 [facility] Comment on above: Performed By: #### C BCA, 14625-0, PINR, 44080-5, 1797-8, CMP, 3040-3, 5643-2 ####[facility] ([id number])[address] [address] Hematocrit (Bld) [Volume fraction] 34.5 % Low 39-49 [facility] Comment on above: Performed By: #### C BCA, 69295-3, PINR, 82441-8, 1797-8, CMP, 3040-3, 5643-2 ####[facility] ([id number])[address] [place] [address] Hemoglobin (Bld) [Mass/Vol] 12.0 g/dL Low 13.0-17.0 [facility] Comment on above: Performed By: #### C BCA, 22338-5, PINR, 31917-0, 1798-8, CMP, 3040-3, 5643-2 ####[facility] ([id number])[address] [place] [address] Lymphocytes (Bld) [#/Vol] 1.2 10*3/uL Normal 1.0-3.5 [facility] Comment on above: Performed By: #### C BCA, 30004-6, PINR, 81335-0, 1798-8, CMP, 3040-3, 5643-2 ####[facility] ([id number])[address] [address] Lymphocytes/100 WBC (Bld) 19.6 % Normal [facility] Comment on above: Performed By: #### C BCA, 81165-0, PINR, 00171-3, 1798-8, CMP, 3040-3, 5643-2 ####[facility] ([id number])[address] [address] MCH (RBC) [Entitic mass] 27.7 pg Normal 27-34 [facility] Comment on above: Performed By: #### C BCA, 95797-1, PINR, 05822-2, 1798-8, CMP, 3040-3, 5643-2 ####[facility] ([id number])[address] [address] MCHC (RBC) [Mass/Vol] 34.9 g/dL Normal 32-36 [facility] Comment on above: Performed By: #### C BCA, 59503-4, PINR, 37178-6, 1798-8, CMP, 3040-3, 5643-2 ####[facility] ([id number])[address] [address] MCV (RBC) [Entitic vol] 79 fL Low 80-100 [facility] Comment on above: Performed By: #### C BCA, 99529-0, PINR, 96742-4, 1798-8, CMP, 3040-3, 5643-2 ####[facility] ([id number])[address] [address] Monocytes (Bld) [#/Vol] 0.4 10*3/uL Normal 0-0.9 [facility] Comment on above: Performed By: #### C BCA, 09050-5, PINR, 02073-1, 1798-8, CMP, 3040-3, 5643-2 ####[facility] ([id number])[address], [place] [address] Monocytes/100 WBC (Bld) 5.6 % Normal [facility] Comment on above: Performed By: #### C BCA, 91988-6, PINR, 48651-1, 1798-8, CMP, 3040-3, 5643-2 ####[facility] ([id number])[address], [place] [address] Neutrophils/100 WBC (Bld) 71.9 % Normal [facility] Comment on above: Performed By: #### C BCA, 77715-8, PINR, 91856-6, 1798-8, CMP, 3040-3, 5643-2 ####[facility] ([id number])[address], [place] [address] Platelet mean volume (Bld) [Entitic vol] 6.8 fL Low 7-12 [facility] Comment on above: Performed By: #### C BCA, 03944-5, PINR, 60442-6, 1798-8, CMP, 3040-3, 5643-2 ####[facility] ([id number])[address], [place] [address] Platelets (Bld) [#/Vol] 299 10*3/uL Normal 150-450 [facility] Comment on above: Performed By: #### C BCA, 11337-2, PINR, 15827-3, 1798-8, CMP, 3040-3, 5643-2 ####[facility] ([id number])[address], [address], [place] [address] RBC COUNT 4.35 X10E12/L Normal 4.10-5.70 [facility] Comment on above: Performed By: #### C BCA, 95154-1, PINR, 66048-0, 1798-8, CMP, 3040-3, 5643-2 ####[facility] ([id number])[address] [place] [address] WBC (Bld) [#/Vol] 6.4 10*3/uL Normal 4.0-11.0 [facility] Comment on above: Performed By: #### C BCA, 99296-1, PINR, 75948-4, 1798-8, CMP, 3040-3, 5643-2 ####[facility] ([id number])[address], [address] [place] [address] COMPREHENSIVE METABOLIC PANE [place] 06-05-2024 Albumin [Mass/Vol] 3.9 g/dL Normal 3.2-5.3 [facility] Comment on above: Performed By: #### C BCA, CMP #### [facility] ([id number]) [address] [place] [address] ALP [Catalytic activity/Vol] 94 U/L Normal 39-130 [facility] Comment on above: Performed By: #### C BCA, CMP #### [facility] ([id number]) [address] [place] [address] ALT [Catalytic activity/Vol] 17 U/L Normal 0-40 [facility] Comment on above: Performed By: #### C BCA, CMP #### [facility] ([id number]) [address] [place] [address] Anion gap [Moles/Vol] 11 mmol/L Normal 5-15 [facility] Comment on above: Performed By: #### C BCA, CMP #### [facility] ([id number]) [address] [place] [address] AST [Catalytic activity/Vol] 13 U/L Normal 0-41 [facility] Comment on above: Performed By: #### C BCA, CMP #### [facility] ([id number]) [address], [address] [place] [address] Bilirubin [Mass/Vol] 0.5 mg/dL Normal 0.3-1.2 [facility] Comment on above: Performed By: #### C BCA, CMP #### [facility] ([id number]) [address] [place] [address] Calcium [Mass/Vol] 8.8 mg/dL Normal 8.5-10.5 [facility] Comment on above: Performed By: #### C BCA, CMP #### [facility] ([id number]) [address], [address] [place] [address] Chloride [Moles/Vol] 101 mmol/L Normal 98-109 [facility] Comment on above: Performed By: #### C BCA, CMP #### [facility] ([id number]) [address], [address] [place] [address] CO2 [Moles/Vol] 25 mmol/L Normal 22-32 [facility] Comment on above: Performed By: #### C BCA, CMP #### [facility] ([id number]) [address] [place] [address] Creatinine [Mass/Vol] 0.54 mg/dL Low 0.60-1.30 [facility] Comment on above: Result Comment: METH OD TRACEABLE TO IDMS STANDARD Performed By: #### C BCA, CMP #### [facility] ([id number]) [address] [place] [address] eGFR (CKD-EPI) NON-RACE DEPENDENT >90 Normal >59 [facility] Comment on above: Result Comment: Reported eGFR is based on the CKD-EPI 2020 equation that does not use a race coefficient. Performed By: #### C BCA, CMP #### [facility] ([id number]) [address] [place] [address] Glucose [Mass/Vol] 146 mg/dL High 65-99 [facility] Comment on above: Performed By: #### C BCA, CMP #### [facility] ([id number]) [address] [place] [address] Potassium [Moles/Vol] 3.9 mmol/L Normal 3.5-5.0 [facility] Comment on above: Performed By: #### C BCA, CMP #### [facility] ([id number]) [address] [place] [address] Protein [Mass/Vol] 6.3 g/dL Normal 6.0-8.0 [facility] Comment on above: Performed By: #### C BCA, CMP #### [facility] ([id number]) [address] [place] [address] Sodium [Moles/Vol] 137 mmol/L Normal 134-146 [facility] Comment on above: Performed By: #### C BCA, CMP #### [facility] ([id number]) [address] [place] [address] Urea nitrogen [Mass/Vol] 13 mg/dL Normal 5-27 [facility] Comment on above: Performed By: #### C BCA, CMP #### [facility] ([id number]) [address] [place] [address] DRUG SCREEN, URINEon 024 AMPHETAMINE/METHAMP Negative Normal NEG [facility] Comment on above: Result Comment: AMPH /METH screening cut off = 1000 ng/mL Performed By: #### C BCA, CMP #### [facility] ([id number]) [address] [place] [address] BARBITURATES Negative Normal NEG [facility] Comment on above: Result Comment: Elsie iturates screening cut off value = 200 ng/mL Performed By: #### C BCA, CMP #### [facility] ([id number]) [address] [place] [address] BENZODIAZEPINES Negative Normal NEG [facility] Comment on above: Result Comment: James odiazepines screening cut off value = 200 ng/mL Performed By: #### C BCA, CMP #### [facility] ([id number]) [address] [place] [address] CANNABINOIDS Negative Normal [facility] Comment on above: Result Comment: Shawn abinoids/THC screening cut off value = 50 ng/mL Performed By: #### C BCA, CMP #### [facility] ([id number]) [address] [place] [address] COCAINE METABOLITE Negative Normal NEG [facility] Comment on above: Result Comment: Coca ine screening cut off value = 300 ng/mL Performed By: #### C BCA, CMP #### [facility] ([id number]) [address] [place] [address] ECSTASY Negative Normal NEG [facility] Comment on above: Result Comment: Ecst asy screening cut off value = 500 ng/mL This report is intended for use in clinical monitoring or management of patients. Performed By: #### C BCA, CMP #### [facility] ([id number]) [address] [place] [address] METHADONE Negative Normal NEG [facility] Comment on above: Result Comment: Meth adone screening cut off value = 300 ng/mL. Performed By: #### C BCA, CMP #### [facility] ([id number]) [address] [place] [address] OPIATES Negative Normal NEG [facility] Comment on above: Result Comment: Opia yanira screening cut off value = 300 ng/mL NOTE: This test is used for the detection of codeine, hydrocodone (>1000 ng/mL), morphine and hydromorphone (>900 ng/mL) in urine. Performed By: #### C BCA, CMP #### [facility] ([id number]) [address] [address] OXYCODONE Negative Normal NEG [facility] Comment on above: Result Comment: Oxyc odone screening cut off value = 300 ng/mL NOTE: This test is used for the detection of oxycodone and oxymorphone in urine. Performed By: #### C BCA, CMP #### [facility] ([id number]) [address] [place] [address] PHENCYCLIDINE Negative Normal NEG [facility] Comment on above: Result Comment: Phen cyclidine screening cut off value = 25 ng/mL Performed By: #### C BCA, CMP #### [facility] ([id number]) [address] [address] ETHANOLon 06-05-2024 Ethanol [Mass/Vol] mg/dL Normal 0.00-0.08 [facility] Comment on above: Result Comment: This report is intended for use in clinical monitoring or management of patients. Performed By: #### C BCA, CMP #### [facility] ([id number]) [address] [address] Fibrinogen Coagulation.deriv ed (PPP) [Mass/Vol]on 06-05-2024 FIBRINOGEN 459 mg/dL Normal 190-480 [facility] Comment on above: Performed By: #### C BCA, 53229-0, PINR, 11257-4, 1798-8, CMP, 3040-3, 5643-2 ####[facility] ([id number])[address], [place] [address] Glucose Glucometer (BldC) [M ass/Vol]on 06-05-2024 Glucose [Mass/Vol] 154 mg/dL High 65-99 [facility] LIPASEon 06-05-2024 Lipase [Catalytic activity/Vol] 35 U/L Normal 11-82 [facility] Comment on above: Performed By: #### C BCA, CMP #### [facility] ([id number]) [address] [place] [address] PROTIME AND INRon 06-05-2024 INR Coag (PPP) [Relative time] 1.1 {INR} Normal 0.8-1.1 [facility] Comment on above: Performed By: #### C BCA, 60578-8, PINR, 96065-0, 1798-8, CMP, 3040-3, 5643-2 ####[facility] ([id number])[address], [address] [place] [address] PT Coag (PPP) [Time] 12.9 s Normal 9.8-13.2 [facility] Comment on above: Performed By: #### C BCA, 33886-4, PINR, 95942-0, 1798-8, CMP, 3040-3, 5643-2 ####[facility] ([id number])[address] [place] [address] URINALYSISon 06-05-2024 Bilirubin Ql (U) Negative Normal NEG [facility] Comment on above: Performed By: #### C BCA, CMP #### [facility] ([id number]) [address], [address] [place] [address] BLOOD/HGB MODERATE Abnormal NEG [facility] Comment on above: Performed By: #### C BCA, CMP #### [facility] ([id number]) [address] [place] [address] Color (U) YELLOW Normal YELLOW [facility] Comment on above: Performed By: #### C BCA, CMP #### [facility] ([id number]) [address] [place] [address] Glucose Ql (U) Negative Normal NEG [facility] Comment on above: Performed By: #### C BCA, CMP #### [facility] ([id number]) [address] [place] [address] Ketones Ql (U) Negative Normal NEG [facility] Comment on above: Performed By: #### C ZACHARY, CMP #### [facility] ([id number]) [address] [place] [address] Leukocyte esterase Test strip Ql (U) MODERATE Abnormal NEG [facility] Comment on above: Performed By: #### C ZACHARY, CMP #### [facility] ([id number]) [address] [place] [address] MUCOUS PRESENT Abnormal NONE [facility] Comment on above: Performed By: #### C ZACHARY, CMP #### [facility] ([id number]) [address] [place] [address] Nitrite Ql (U) Negative Normal NEG [facility] Comment on above: Performed By: #### C BCA, CMP #### [facility] ([id number]) [address] [place] [address] pH (U) 6.5 [pH] Normal 5.0-8.5 [facility] Comment on above: Performed By: #### C BCA, CMP #### [facility] ([id number]) [address] [place] [address] Protein Ql (U) 30 mg/dL Abnormal NEG [facility] Comment on above: Performed By: #### C BCA, CMP #### [facility] ([id number]) [address] [place] [address] R.B.CELLS 35 /hpf High 0-5 [facility] Comment on above: Performed By: #### C BCA, CMP #### [facility] ([id number]) [address] [place] [address] Specific gravity (U) [Rel density] 1.020 Normal 1.003-1.03 5 [facility] Comment on above: Performed By: #### C ZACHARY, CMP #### [facility] ([id number]) [address] [place] [address] TURBIDITY CLEAR Normal CLEAR [facility] Comment on above: Performed By: #### Thais SHARMA, CMP #### [facility] ([id number]) [address] [address] [place] [address] Urinalysis dipstick W Reflex Microscopic panel (U) URINE RECEIVED WITHOUT PRESERVATIVE-DELAYS IN TRANSPORT MAY AFFECT RESULTS.INTERPRET WITH CAUTION AND CLINICAL CORRELATION IS RECOMMENDED. Normal [facility] Comment on above: Performed By: #### C ZACHARY, CMP #### [facility] ([id number]) [address] [place] [address] Urobilinogen Qn (U) 3 {Marley'U}/dL High <1.1 [facility] Comment on above: Performed By: #### C ZACHARY, CMP #### [facility] ([id number]) [address] [place] [address] W.B.CELLS 37 /hpf High 0-5 [facility] Comment on above: Performed By: #### C ZACHARY, CMP #### [facility] ([id number]) [address], [address] [place] [address] XR CHEST 1 VWon 06-05-2024 XR CHEST [...] Espino MD on 06/05/2024 10:48 PM Normal [facility] aPTT Coag (PPP) [Time]on aPTT Coag (Bld) [Time] 32 s Normal 26-37 [facility] Comment on above: Performed By: #### C BCA, 34260-3, PINR, 59521-6, 1798-8, CMP, 3040-3, 5643-2 ####[facility] ([id number])[address], [address] [place] [id number] BASIC METABOLIC PANLon 06-01 Anion gap [Moles/Vol] 10 mmol/L Normal 5-15 [facility] Comment on above: Performed By: #### P INR, 23898-9, 52556-7, CBCA, 10551-3, CMP, 4548-4, 6873-4 #### [facility] ([id number]) [address] [place] [id number] #### HA1C #### [facility] [facility] ([id number]) [address], [address] [place] [address] Calcium [Mass/Vol] 8.7 mg/dL Normal 8.5-10.5 [facility] Comment on above: Performed By: #### P INR, 32483-5, 64157-3, CBCA, 61988-3, CMP, 4548-4, 6873-4 #### [facility] ([id number]) [address] [place] [address] 41951 #### HA1C #### [facility] ([id number]) [address], [address] [place] [address] Chloride [Moles/Vol] 99 mmol/L Normal 98-109 [facility] Comment on above: Performed By: #### P INR, 49340-8, 77473-8, CBCA, 38246-3, CMP, 4548-4, 6873-4 #### [facility] ([id number]) [address] [place] [address] 41832 #### HA1C #### [facility] ([id number]) [address] [facility], [address] [place] [address] CO2 [Moles/Vol] 23 mmol/L Normal 22-32 [facility] Comment on above: Performed By: #### P INR, 22042-2, 38698-4, CBCA, 19472-6, CMP, 4548-4, 6873-4 #### [facility] ([id number]) [address] [place] [address] 20723 #### HA1C #### [facility] ([id number]) [address] [facility], [address] [place] [address] Creatinine [Mass/Vol] 0.59 mg/dL Low 0.70-1.20 [facility] Comment on above: Result Comment: METH OD TRACEABLE TO IDMS STANDARD Performed By: #### P INR, 22225-8, 72357-5, CBCA, 93736-2, CMP, 4548-4, 6873-4 #### [facility] ([id number]) [address] [place] [address] 05947 #### HA1C #### [facility] ([id number]) [address], [address] [place] [address] eGFR (CKD-EPI) NON-RACE DEPENDENT >90 Normal >59 [facility] Comment on above: Result Comment: Reported eGFR is based on the CKD-EPI 2020 equation that does not use a race coefficient. Performed By: #### P INR, 60470-6, 11098-8, CBCA, 15952-8, CMP, 4548-4, 6873-4 #### [facility] ([id number]) [address] [place] [address] 54211 #### HA1C #### [facility] ([id number]) [address], [address] [place] [address] Glucose [Mass/Vol] 163 mg/dL High 65-99 [facility] Comment on above: Performed By: #### P INR, 15923-9, 41597-6, CBCA, 24611-9, CMP, 4548-4, 6873-4 #### [facility] ([id number]) [address] [place] [address] 68116 #### HA1C #### [facility] ([id number]) [address] [facility], [address] [place] [address] Potassium [Moles/Vol] 3.9 mmol/L Normal 3.5-5.0 [facility] Comment on above: Performed By: #### P INR, 80939-6, 21088-4, CBCA, 42075-7, CMP, 4548-4, 6873-4 #### [facility] ([id number]) [address] [place] [address] 32814 #### HA1C #### [facility] ([id number]) [address], [address] [place] [address] Sodium [Moles/Vol] 132 mmol/L Low 134-146 [facility] Comment on above: Performed By: #### P INR, 37810-8, 57699-4, CBCA, 96132-1, CMP, 4548-4, 6873-4 #### [facility] ([id number]) [address] [place] [address] 57970 #### HA1C #### [facility] ([id number]) [address], [address] [place] [address] Urea nitrogen [Mass/Vol] 15 mg/dL Normal 5-27 [facility] Comment on above: Performed By: #### P INR, 57123-6, 92893-3, CBCA, 24023-4, CMP, 4548-4, 6873-4 #### [facility] ([id number]) [address] [place] [address] 24288 #### HA1C #### [facility] ([id number]) [address] [facility], [address] [place] [address] CBC AND AUTO DIFFon 06-01-20 24 ABSOLUTE BASOPHIL 0.0 X10E9/L Normal 0.0-0.2 [facility] Comment on above: Performed By: #### P INR, 00933-7, 83131-7, CBCA, 85446-3, CMP, 4548-4, 6873-4 #### [facility] ([id number]) [address] [place] [address] 60780 #### HA1C #### [facility] ([id number]) [address] [facility], [address] [place] [address] ABSOLUTE NEUTROPHIL 2.5 X10E9/L Normal 1.5-6.6 [facility] Comment on above: Performed By: #### P INR, 37791-4, 02623-5, CBCA, 29511-1, CMP, 4548-4, 6873-4 #### [facility] ([id number]) [address] [place] [address] 62450 #### HA1C #### [facility] ([id number]) [address], [address] [place] [address] Basophils/100 WBC (Bld) 1.0 % Normal [facility] Comment on above: Performed By: #### P INR, 14131-4, 92830-5, CBCA, 57700-2, CMP, 4548-4, 6873-4 #### [facility] ([id number]) [address] [place] [address] 98769 #### HA1C #### [facility] ([id number]) [address], [address] [place] [address] Eosinophils (Bld) [#/Vol] 0.3 10*3/uL Normal 0.0-0.4 [facility] Comment on above: Performed By: #### P INR, 78470-4, 31464-4, CBCA, 68337-0, CMP, 4548-4, 6873-4 #### [facility] ([id number]) [address] [place] [address] 27509 #### HA1C #### [facility] ([id number]) [address] [facility], [address] [place] [address] Eosinophils/100 WBC (Bld) 6.5 % Normal [facility] Comment on above: Performed By: #### P INR, 99826-1, 01847-2, CBCA, 52468-3, CMP, 4548-4, 6873-4 #### [facility] ([id number]) [address] [place] [address] 68675 #### HA1C #### [facility] ([id number]) [address] [facility], [address] [place] [address] Erythrocyte distribution width (RBC) [Ratio] 15.7 % High 11.5-15.0 [facility] Comment on above: Performed By: #### P INR, 71550-6, 75627-4, CBCA, 64241-6, CMP, 4548-4, 6873-4 #### [facility] ([id number]) [address] [place] [address] 84157 #### HA1C #### [facility] ([id number]) [address], [address] [place] [address] Hematocrit (Bld) [Volume fraction] 34.2 % Low 39-49 [facility] Comment on above: Performed By: #### P INR, 18526-2, 27696-5, CBCA, 69561-5, CMP, 4548-4, 6873-4 #### [facility] ([id number]) [address] [place] [address] 46353 #### HA1C #### [facility] ([id number]) [address], [address] [place] [address] Hemoglobin (Bld) [Mass/Vol] 11.6 g/dL Low 13.0-17.0 [facility] Comment on above: Performed By: #### P INR, 26158-1, 93658-4, CBCA, 61487-7, CMP, 4548-4, 6873-4 #### [facility] ([id number]) [address] [place] [address] 78919 #### HA1C #### [facility] ([id number]) [address], [address] [place] [address] Lymphocytes (Bld) [#/Vol] 1.6 10*3/uL Normal 1.0-3.5 [facility] Comment on above: Performed By: #### P INR, 14908-4, 03623-0, CBCA, 28936-7, CMP, 4548-4, 6873-4 #### [facility] ([id number]) [address] [place] [address] 93814 #### HA1C #### [facility] ([id number]) [address], [address] [place] [address] Lymphocytes/100 WBC (Bld) 33.6 % Normal [facility] Comment on above: Performed By: #### P INR, 64286-4, 11679-3, CBCA, 02933-7, CMP, 4548-4, 6873-4 #### [facility] ([id number]) [address] [place] [address] 62442 #### HA1C #### [facility] ([id number]) [address], [address] [place] [address] MCH (RBC) [Entitic mass] 27.2 pg Normal 27-34 [facility] Comment on above: Performed By: #### P INR, 64243-2, 86833-7, CBCA, 94531-0, CMP, 4548-4, 6873-4 #### [facility] ([id number]) [address] [place] [address] 25711 #### HA1C #### [facility] ([id number]) [address], [address] [place] [address] MCHC (RBC) [Mass/Vol] 33.9 g/dL Normal 32-36 [facility] Comment on above: Performed By: #### P INR, 50908-7, 36133-2, CBCA, 66999-4, CMP, 4548-4, 6873-4 #### [facility] ([id number]) [address] [place] [address] 24560 #### HA1C #### [facility] ([id number]) [address], [address] [place] [address] MCV (RBC) [Entitic vol] 80 fL Normal 80-100 [facility] Comment on above: Performed By: #### P INR, 37926-6, 33351-7, CBCA, 68133-4, CMP, 4548-4, 6873-4 #### [facility] ([id number]) [address] [place] [address] 35465 #### HA1C #### [facility] ([id number]) [address], [address] [place] [address] Monocytes (Bld) [#/Vol] 0.4 10*3/uL Normal 0-0.9 [facility] Comment on above: Performed By: #### P INR, 00329-8, 26028-6, CBCA, 58227-2, CMP, 4548-4, 6873-4 #### [facility] ([id number]) [address] [place] [address] 52857 #### HA1C #### [facility] ([id number]) [address] [facility], [address] [place] [address] Monocytes/100 WBC (Bld) 7.6 % Normal [facility] Comment on above: Performed By: #### P INR, 92718-4, 26819-6, CBCA, 12905-5, CMP, 4548-4, 6873-4 #### [facility] ([id number]) [address] [place] [address] 35657 #### HA1C #### [facility] ([id number]) [address] [facility], [address] [place] [address] Neutrophils/100 WBC (Bld) 51.3 % Normal [facility] Comment on above: Performed By: #### P INR, 19838-6, 90397-0, CBCA, 46396-0, CMP, 4548-4, 6873-4 #### [facility] ([id number]) [address] [place] [address] 99370 #### HA1C #### [facility] ([id number]) [address] [facility], [address] [place] [address] Platelet mean volume (Bld) [Entitic vol] 6.8 fL Low 7-12 [facility] Comment on above: Performed By: #### P INR, 17425-0, 76415-9, CBCA, 22266-0, CMP, 4548-4, 6873-4 #### [facility] ([id number]) [address] [place] [address] 84550 #### HA1C #### [facility] ([id number]) [address], [address] [place] [address] Platelets (Bld) [#/Vol] 300 10*3/uL Normal 150-450 [facility] Comment on above: Performed By: #### P INR, 55634-9, 83033-5, CBCA, 90609-7, CMP, 4548-4, 6873-4 #### [facility] ([id number]) [address] [place] [address] 24693 #### HA1C #### [facility] ([id number]) [address], [address] [place] [address] RBC COUNT 4.25 X10E12/L Normal 4.10-5.70 [facility] Comment on above: Performed By: #### P INR, 45076-4, 54225-4, CBCA, 31996-0, CMP, 4548-4, 6873-4 #### [facility] ([id number]) [address] [place] [address] 22198 #### HA1C #### [facility] ([id number]) [address], [address] [place] [address] WBC (Bld) [#/Vol] 4.9 10*3/uL Normal 4.0-11.0 [facility] Comment on above: Performed By: #### P INR, 62198-3, 48148-6, CBCA, 58041-6, CMP, 4548-4, 6873-4 #### [facility] ([id number]) [address] [place] [address] 93980 #### HA1C #### [facility] ([id number]) [address], [address] [place] [address] Glucose Glucometer (BldC) [M ass/Vol]on 06-01-2024 Glucose [Mass/Vol] 143 mg/dL High 65-99 [facility] BASIC METABOLIC PANLon 05-31 Anion gap [Moles/Vol] 8 mmol/L Normal 5-15 [facility] Comment on above: Performed By: #### P INR, 55475-4, 23262-3, CBCA, 34028-5, CMP, 4548-4, 6873-4 #### [facility] ([id number]) [address] [place] [address] 68886 #### HA1C #### [facility] ([id number]) [address], [address] [place] [address] Calcium [Mass/Vol] 8.5 mg/dL Normal 8.5-10.5 [facility] Comment on above: Performed By: #### P INR, 33468-0, 19952-7, CBCA, 50053-1, CMP, 4548-4, 6873-4 #### [facility] ([id number]) [address] [place] [address] 02241 #### HA1C #### [facility] ([id number]) [address], [address] [place] [address] Chloride [Moles/Vol] 100 mmol/L Normal 98-109 [facility] Comment on above: Performed By: #### P INR, 74523-5, 34907-9, CBCA, 60330-7, CMP, 4548-4, 6873-4 #### [facility] ([id number]) [address] [place] [address] 12147 #### HA1C #### [facility] ([id number]) [address], [address] [place] [address] CO2 [Moles/Vol] 24 mmol/L Normal 22-32 [facility] Comment on above: Performed By: #### P INR, 50719-3, 35219-7, CBCA, 75164-0, CMP, 4548-4, 6873-4 #### [facility] ([id number]) [address] [place] [address] 90179 #### HA1C #### [facility] ([id number]) [address] [facility], [address] [place] [address] Creatinine [Mass/Vol] 0.69 mg/dL Low 0.70-1.20 [facility] Comment on above: Result Comment: METH OD TRACEABLE TO IDMS STANDARD Performed By: #### P INR, 08358-9, 17953-2, CBCA, 33657-0, CMP, 4548-4, 6873-4 #### [facility] ([id number]) [address] [place] [address] 89924 #### HA1C #### [facility] ([id number]) [address] [facility], [address] [place] [address] eGFR (CKD-EPI) NON-RACE DEPENDENT >90 Normal >59 [facility] Comment on above: Result Comment: Reported eGFR is based on the CKD-EPI 2021 equation that does not use a race coefficient. Performed By: #### P INR, 29286-2, 46317-6, CBCA, 55561-0, CMP, 4548-4, 6873-4 #### [facility] ([id number]) [address] [place] [address] 36225 #### HA1C #### [facility] ([id number]) [address] [facility], [address] [place] [address] Glucose [Mass/Vol] 139 mg/dL High 65-99 [facility] Comment on above: Performed By: #### P INR, 08317-6, 82406-9, CBCA, 42201-1, CMP, 4548-4, 6873-4 #### [facility] ([id number]) [address] [place] [address] 14115 #### HA1C #### [facility] ([id number]) [address], [address] [place] [address] Potassium [Moles/Vol] 3.7 mmol/L Normal 3.5-5.0 [facility] Comment on above: Performed By: #### P INR, 67892-9, 55053-9, CBCA, 87347-6, CMP, 4548-4, 6873-4 #### [facility] ([id number]) [address] [place] [address] 86280 #### HA1C #### [facility] ([id number]) [address], [address] [place] [address] Sodium [Moles/Vol] 132 mmol/L Low 134-146 [facility] Comment on above: Performed By: #### P INR, 78058-7, 64640-7, CBCA, 61037-7, CMP, 4548-4, 6873-4 #### [facility] ([id number]) [address] [place] [address] 01744 #### HA1C #### [facility] ([id number]) [address], [address] [place] [address] Urea nitrogen [Mass/Vol] 16 mg/dL Normal 5-27 [facility] Comment on above: Performed By: #### P INR, 04536-3, 23617-9, CBCA, 55596-0, CMP, 4548-4, 6873-4 #### [facility] ([id number]) [address] [place] [address] 48131 #### HA1C #### [facility] ([id number]) [address], [address] [place] [address] CBC AND AUTO DIFFon 05-31-20 24 ABSOLUTE BASOPHIL 0.1 X10E9/L Normal 0.0-0.2 [facility] Comment on above: Performed By: #### P INR, 57533-3, 57011-4, CBCA, 54422-1, CMP, 4548-4, 6873-4 #### [facility] ([id number]) [address] [place] [address] 12255 #### HA1C #### [facility] ([id number]) [address] [place] [address], [address] [place] [address] ABSOLUTE NEUTROPHIL 3.4 X10E9/L Normal 1.5-6.6 [facility] Comment on above: Performed By: #### P INR, 42261-7, 13942-5, CBCA, 91020-6, CMP, 4548-4, 6873-4 #### [facility] ([id number]) [address] [place] [address] 39150 #### HA1C #### [facility] ([id number]) [address] [place] [address], [address] [place] [address] Basophils/100 WBC (Bld) 1.1 % Normal [facility] Comment on above: Performed By: #### P INR, 01377-8, 46593-3, CBCA, 01081-0, CMP, 4548-4, 6873-4 #### [facility] ([id number]) [address] [place] [address] 47695 #### HA1C #### [facility] ([id number]) [address] [place] [address], [address] [place] [address] Eosinophils (Bld) [#/Vol] 0.4 10*3/uL Normal 0.0-0.4 [facility] Comment on above: Performed By: #### P INR, 06694-6, 34758-9, CBCA, 51652-4, CMP, 4548-4, 6873-4 #### [facility] ([id number]) [address] [place] [address] 06521 #### HA1C #### [facility] ([id number]) [address], [address] [place] [address] Eosinophils/100 WBC (Bld) 7.9 % Normal [facility] Comment on above: Performed By: #### P INR, 75525-5, 47855-6, CBCA, 00393-7, CMP, 4548-4, 6873-4 #### [facility] ([id number]) [address] [place] [address] 73604 #### HA1C #### [facility] ([id number]) [address], [address] [place] [address] Erythrocyte distribution width (RBC) [Ratio] 15.1 % High 11.5-15.0 [facility] Comment on above: Performed By: #### P INR, 85826-5, 11298-6, CBCA, 80842-3, CMP, 4548-4, 6873-4 #### [facility] ([id number]) [address] [place] [address] 15071 #### HA1C #### [facility] ([id number]) [address], [address] [place] [address] Hematocrit (Bld) [Volume fraction] 37.2 % Low 39-49 [facility] Comment on above: Performed By: #### P INR, 45239-1, 18836-8, CBCA, 23985-6, CMP, 4548-4, 6873-4 #### [facility] ([id number]) [address] [place] [address] 85017 #### HA1C #### [facility] ([id number]) [address], [address] [place] [address] Hemoglobin (Bld) [Mass/Vol] 12.5 g/dL Low 13.0-17.0 [facility] Comment on above: Performed By: #### P INR, 31556-1, 10648-9, CBCA, 44418-2, CMP, 4548-4, 6873-4 #### [facility] ([id number]) [address] [place] [address] 70298 #### HA1C #### [facility] ([id number]) [address] [facility], [address] [place] [address] Lymphocytes (Bld) [#/Vol] 1.2 10*3/uL Normal 1.0-3.5 [facility] Comment on above: Performed By: #### P INR, 40916-5, 37642-4, CBCA, 08872-1, CMP, 4548-4, 6873-4 #### [facility] ([id number]) [address] [place] [address] 96556 #### HA1C #### [facility] ([id number]) [address] [facility], [address] [place] [address] Lymphocytes/100 WBC (Bld) 21.2 % Normal [facility] Comment on above: Performed By: #### P INR, 59577-1, 94784-3, CBCA, 36908-8, CMP, 4548-4, 6873-4 #### [facility] ([id number]) [address] [place] [address] 09095 #### HA1C #### [facility] ([id number]) [address] [facility], [address] [place] [address] MCH (RBC) [Entitic mass] 27.4 pg Normal 27-34 [facility] Comment on above: Performed By: #### P INR, 10911-4, 30444-6, CBCA, 85976-5, CMP, 4548-4, 6873-4 #### [facility] ([id number]) [address] [place] [address] 29391 #### HA1C #### [facility] ([id number]) [address], [address] [place] [address] MCHC (RBC) [Mass/Vol] 33.7 g/dL Normal 32-36 [facility] Comment on above: Performed By: #### P INR, 47834-4, 42013-1, CBCA, 21696-3, CMP, 4548-4, 6873-4 #### [facility] ([id number]) [address] [place] [address] 87549 #### HA1C #### [facility] ([id number]) [address] [place] [address] MCV (RBC) [Entitic vol] 81 fL Normal 80-100 [facility] Comment on above: Performed By: #### P INR, 18967-5, 09884-9, CBCA, 86881-1, CMP, 4548-4, 6873-4 #### [facility] ([id number]) [address] [place] [address] 64519 #### HA1C #### [facility] ([id number]) [address], [address] [place] [address] Monocytes (Bld) [#/Vol] 0.4 10*3/uL Normal 0-0.9 [facility] Comment on above: Performed By: #### P INR, 66902-3, 77981-6, CBCA, 97218-3, CMP, 4548-4, 6873-4 #### [facility] ([id number]) [address] [place] [address] 01282 #### HA1C #### [facility] ([id number]) [address], [address] [place] [address] Monocytes/100 WBC (Bld) 6.7 % Normal [facility] Comment on above: Performed By: #### P INR, 89675-2, 14412-8, CBCA, 45483-2, CMP, 4548-4, 6873-4 #### [facility] ([id number]) [address] [place] [address] #### HA1C #### [facility] ([id number]) [address], [address] [place] [address] Neutrophils/100 WBC (Bld) 63.1 % Normal [facility] Comment on above: Performed By: #### P INR, 70857-1, 93723-9, CBCA, 15718-1, CMP, 4548-4, 6873-4 #### [facility] ([id number]) [address] [place] [address] #### HA1C #### [facility] ([id number]) [address], [address] [place] [address] Platelet mean volume (Bld) [Entitic vol] 6.9 fL Low 7-12 [facility] Comment on above: Performed By: #### P INR, 57368-2, 47997-6, CBCA, 47201-1, CMP, 4548-4, 6873-4 #### [facility] ([id number]) [address] [place] [address] #### HA1C #### [facility] ([id number]) [address], [address] [place] [address] Platelets (Bld) [#/Vol] 297 10*3/uL Normal 150-450 [facility] Comment on above: Performed By: #### P INR, 84629-6, 39110-0, CBCA, 51927-1, CMP, 4548-4, 6873-4 #### [facility] ([id number]) [address] [place] [address] #### HA1C #### [facility] ([id number]) [address], [address] [place] [address] RBC COUNT 4.57 X10E12/L Normal 4.10-5.70 [facility] Comment on above: Performed By: #### P INR, 73206-8, 22894-9, CBCA, 92630-9, CMP, 4548-4, 6873-4 #### [facility] ([id number]) [address] [place] [address] #### HA1C #### [facility] ([id number]) [address], [address] [place] [address] WBC (Bld) [#/Vol] 5.4 10*3/uL Normal 4.0-11.0 [facility] Comment on above: Performed By: #### P INR, 89622-9, 09410-7, CBCA, 43232-5, CMP, 4548-4, 6873-4 #### [facility] ([id number]) [address] [place] [address] #### HA1C #### [facility] ([id number]) [address], [address] [place] [address] Glucose Glucometer (BldC) [M ass/Vol]on 05-31-2024 Glucose [Mass/Vol] 201 mg/dL High 65-99 [facility] Glucose [Mass/Vol] 217 mg/dL High 65-99 [facility] Glucose [Mass/Vol] 189 mg/dL High 65-99 [facility] Glucose [Mass/Vol] 148 mg/dL High 65-99 [facility] CBC AND AUTO DIFFon 05-30-20 24 ABSOLUTE BASOPHIL 0.1 X10E9/L Normal 0.0-0.2 [facility] Comment on above: Performed By: #### P INR, 47309-4, 40842-6, CBCA, 46286-8, CMP, 4548-4, 6873-4 #### [facility] ([id number]) [address] [place] [address] #### HA1C #### [facility] ([id number]) [address] [facility] [place] [address] ABSOLUTE NEUTROPHIL 2.4 X10E9/L Normal 1.5-6.6 [facility] Comment on above: Performed By: #### P INR, 23323-2, 60679-7, CBCA, 18095-7, CMP, 4548-4, 6873-4 #### [facility] ([id number]) [address] [place] [address] #### HA1C #### [facility] ([id number]) [address] [facility] [facility] [place] [address] Basophils/100 WBC (Bld) 1.2 % Normal [facility] Comment on above: Performed By: #### P INR, 34494-7, 03323-4, CBCA, 16677-8, CMP, 4548-4, 6873-4 #### [facility] ([id number]) [address] [place] [address] #### HA1C #### [facility] ([id number]) [address] [facility], [address] [place] [address] Eosinophils (Bld) [#/Vol] 0.4 10*3/uL Normal 0.0-0.4 [facility] Comment on above: Performed By: #### P INR, 06849-1, 29816-7, CBCA, 23344-0, CMP, 4548-4, 6873-4 #### [facility] ([id number]) [address] [place] [address] #### HA1C #### [facility] ([id number]) [address] [facility] [facility] [address] [place] [address] Eosinophils/100 WBC (Bld) 10.0 % Normal [facility] Comment on above: Performed By: #### P INR, 92325-2, 99551-8, CBCA, 10744-0, CMP, 4548-4, 6873-4 #### [facility] ([id number]) [address] [place] [address] #### HA1C #### [facility] ([id number]) [address] [place] [address] Erythrocyte distribution width (RBC) [Ratio] 15.3 % High 11.5-15.0 [facility] Comment on above: Performed By: #### P INR, 59718-0, 69928-1, CBCA, 34734-4, CMP, 4548-4, 6873-4 #### [facility] ([id number]) [address] [place] [address] 69068 #### HA1C #### [facility] ([id number]) [address] [place] [address] 31143 Hematocrit (Bld) [Volume fraction] 33.6 % Low 39-49 [facility] Comment on above: Performed By: #### P INR, 42421-0, 49458-2, CBCA, 60085-7, CMP, 4548-4, 6873-4 #### [facility] ([id number]) [address] [place] [address] 86436 #### HA1C #### [facility] ([id number]) [address] [place] [address] 77130 Hemoglobin (Bld) [Mass/Vol] 11.3 g/dL Low 13.0-17.0 [facility] Comment on above: Performed By: #### P INR, 59960-2, 07666-2, CBCA, 00958-7, CMP, 4548-4, 6873-4 #### [facility] ([id number]) [address] [place] [address] 99324 #### HA1C #### [facility] ([id number]) [address], [address] [place] [address] Lymphocytes (Bld) [#/Vol] 1.1 10*3/uL Normal 1.0-3.5 [facility] Comment on above: Performed By: #### P INR, 26025-1, 96912-8, CBCA, 68175-3, CMP, 4548-4, 6873-4 #### [facility] ([id number]) [address] [place] [address] 02739 #### HA1C #### [facility] ([id number]) [address] [facility], [address] [place] [address] Lymphocytes/100 WBC (Bld) 24.4 % Normal [facility] Comment on above: Performed By: #### P INR, 52598-9, 64607-0, CBCA, 71454-5, CMP, 4548-4, 6873-4 #### [facility] ([id number]) [address] [place] [address] 26374 #### HA1C #### [facility] ([id number]) [address] [facility], [address] [place] [address] MCH (RBC) [Entitic mass] 27.2 pg Normal 27-34 [facility] Comment on above: Performed By: #### P INR, 90350-9, 18221-2, CBCA, 13590-4, CMP, 4548-4, 6873-4 #### [facility] ([id number]) [address] [place] [address] 19319 #### HA1C #### [facility] ([id number]) [address], [address] [place] [address] MCHC (RBC) [Mass/Vol] 33.5 g/dL Normal 32-36 [facility] Comment on above: Performed By: #### P INR, 84314-6, 63951-4, CBCA, 93962-1, CMP, 4548-4, 6873-4 #### [facility] ([id number]) [address] [place] [address] 35008 #### HA1C #### [facility] ([id number]) [address], [address] [place] [address] MCV (RBC) [Entitic vol] 81 fL Normal 80-100 [facility] Comment on above: Performed By: #### P INR, 42596-4, 20661-5, CBCA, 56398-3, CMP, 4548-4, 6873-4 #### [facility] ([id number]) [address] [place] [address] 80673 #### HA1C #### [facility] ([id number]) [address], [address] [place] [address] Monocytes (Bld) [#/Vol] 0.4 10*3/uL Normal 0-0.9 [facility] Comment on above: Performed By: #### P INR, 21195-2, 53775-5, CBCA, 72850-0, CMP, 4548-4, 6873-4 #### [facility] ([id number]) [address] [place] [address] 75141 #### HA1C #### [facility] ([id number]) [address], [address] [place] [address] Monocytes/100 WBC (Bld) 9.7 % Normal [facility] Comment on above: Performed By: #### P INR, 00926-5, 86903-6, CBCA, 23407-2, CMP, 4548-4, 6873-4 #### [facility] ([id number]) [address] [place] [address] 68445 #### HA1C #### [facility] ([id number]) [address], [address] [place] [address] Neutrophils/100 WBC (Bld) 54.7 % Normal [facility] Comment on above: Performed By: #### P INR, 70821-7, 10475-1, CBCA, 45030-3, CMP, 4548-4, 6873-4 #### [facility] ([id number]) [address] [place] [address] 69814 #### HA1C #### [facility] ([id number]) [address], [address] [place] [address] Platelet mean volume (Bld) [Entitic vol] 7.1 fL Normal 7-12 [facility] Comment on above: Performed By: #### P INR, 66317-9, 88490-0, CBCA, 68944-9, CMP, 4548-4, 6873-4 #### [facility] ([id number]) [address] [place] [address] 43304 #### HA1C #### [facility] ([id number]) [address], [address] [place] [address] Platelets (Bld) [#/Vol] 282 10*3/uL Normal 150-450 [facility] Comment on above: Performed By: #### P INR, 54519-7, 70235-1, CBCA, 23181-2, CMP, 4548-4, 6873-4 #### [facility] ([id number]) [address] [place] [address] 59305 #### HA1C #### [facility] ([id number]) [address], [address] [place] [address] RBC COUNT 4.14 X10E12/L Normal 4.10-5.70 [facility] Comment on above: Performed By: #### P INR, 58867-8, 63208-4, CBCA, 79940-9, CMP, 4548-4, 6873-4 #### [facility] ([id number]) [address] [place] [address] 10772 #### HA1C #### [facility] ([id number]) [address] [facility], [address] [place] [address] WBC (Bld) [#/Vol] 4.4 10*3/uL Normal 4.0-11.0 [facility] Comment on above: Performed By: #### P INR, 39749-8, 69427-1, CBCA, 13763-1, CMP, 4548-4, 6873-4 #### [facility] ([id number]) [address] [place] [address] 65304 #### HA1C #### [facility] ([id number]) [address] [place] [address], [address] [place] [address] COMPREHENSIVE METABOLIC PANE [place] 05-30-2024 Albumin [Mass/Vol] 3.3 g/dL Normal 3.2-5.3 [facility] Comment on above: Performed By: #### P INR, 75694-3, 08288-2, CBCA, 14311-3, CMP, 4548-4, 6873-4 #### [facility] ([id number]) [address] [place] [address] 11699 #### HA1C #### [facility] ([id number]) [address] [facility], [address] [place] [address] ALP [Catalytic activity/Vol] 82 U/L Normal 39-130 [facility] Comment on above: Performed By: #### P INR, 98324-0, 81013-1, CBCA, 78348-9, CMP, 4548-4, 6873-4 #### [facility] ([id number]) [address] [place] [address] 77667 #### HA1C #### [facility] ([id number]) [address] [facility], [address] [place] [address] ALT [Catalytic activity/Vol] 27 U/L Normal 0-40 [facility] Comment on above: Performed By: #### P INR, 62624-2, 93958-8, CBCA, 84290-7, CMP, 4548-4, 6873-4 #### [facility] ([id number]) [address] [place] [address] 71986 #### HA1C #### [facility] ([id number]) [address] [facility], [address] [place] [address] Anion gap [Moles/Vol] 7 mmol/L Normal 5-15 [facility] Comment on above: Performed By: #### P INR, 17171-2, 06151-5, CBCA, 38210-7, CMP, 4548-4, 6873-4 #### [facility] ([id number]) [address] [place] [address] 19221 #### HA1C #### [facility] ([id number]) [address] [facility], [address] [place] [address] AST [Catalytic activity/Vol] 21 U/L Normal 0-41 [facility] Comment on above: Performed By: #### P INR, 95917-5, 22700-2, CBCA, 05902-0, CMP, 4548-4, 6873-4 #### [facility] ([id number]) [address] [place] [address] 93772 #### HA1C #### [facility] ([id number]) [address], [address] [place] [address] Bilirubin [Mass/Vol] 0.6 mg/dL Normal 0.3-1.2 [facility] Comment on above: Performed By: #### P INR, 41606-4, 44680-8, CBCA, 17135-5, CMP, 4548-4, 6873-4 #### [facility] ([id number]) [address] [place] [address] 49737 #### HA1C #### [facility] ([id number]) [address] [facility], [address] [place] [address] Calcium [Mass/Vol] 8.2 mg/dL Low 8.5-10.5 [facility] Comment on above: Performed By: #### P INR, 90125-3, 48701-4, CBCA, 32167-1, CMP, 4548-4, 6873-4 #### [facility] ([id number]) [address] [place] [address] 83813 #### HA1C #### [facility] ([id number]) [address] [facility], [address] [place] [address] Chloride [Moles/Vol] 103 mmol/L Normal 98-109 [facility] Comment on above: Performed By: #### P INR, 69043-1, 69653-4, CBCA, 00900-5, CMP, 4548-4, 6873-4 #### [facility] ([id number]) [address] [place] [address] 74026 #### HA1C #### [facility] ([id number]) [address], [address] [place] [address] CO2 [Moles/Vol] 23 mmol/L Normal 22-32 [facility] Comment on above: Performed By: #### P INR, 96651-2, 93462-3, CBCA, 55718-7, CMP, 4548-4, 6873-4 #### [facility] ([id number]) [address] [place] [address] 31045 #### HA1C #### [facility] ([id number]) [address] [facility], [address] [place] [address] Creatinine [Mass/Vol] 0.69 mg/dL Low 0.70-1.20 [facility] Comment on above: Result Comment: METH OD TRACEABLE TO IDMS STANDARD Performed By: #### P INR, 61476-1, 26865-1, CBCA, 48191-8, CMP, 4548-4, 6873-4 #### [facility] ([id number]) [address] [place] [address] 64651 #### HA1C #### [facility] ([id number]) [address] [facility], [address] [place] [address] eGFR (CKD-EPI) NON-RACE DEPENDENT >90 Normal >59 [facility] Comment on above: Result Comment: Reported eGFR is based on the CKD-EPI 2020 equation that does not use a race coefficient. Performed By: #### P INR, 60822-0, 43138-0, CBCA, 87586-5, CMP, 4548-4, 6873-4 #### [facility] ([id number]) [address] [place] [address] 78490 #### HA1C #### [facility] ([id number]) [address] [place] [address], [address] [place] [address] Glucose [Mass/Vol] 132 mg/dL High 65-99 [facility] Comment on above: Performed By: #### P INR, 00489-4, 53801-4, CBCA, 75509-0, CMP, 4548-4, 6873-4 #### [facility] ([id number]) [address] [place] [address] 03068 #### HA1C #### [facility] ([id number]) [address], [address] [place] [address] Potassium [Moles/Vol] 3.6 mmol/L Normal 3.5-5.0 [facility] Comment on above: Performed By: #### P INR, 59934-7, 46116-4, CBCA, 70880-3, CMP, 4548-4, 6873-4 #### [facility] ([id number]) [address] [place] [address] 68548 #### HA1C #### [facility] ([id number]) [address] [facility], [address] [place] [address] Protein [Mass/Vol] 6.4 g/dL Normal 6.0-8.0 [facility] Comment on above: Performed By: #### P INR, 18160-2, 85059-7, CBCA, 81211-2, CMP, 4548-4, 6873-4 #### [facility] ([id number]) [address] [place] [address] 19250 #### HA1C #### [facility] ([id number]) [address] [facility], [address] [place] [address] Sodium [Moles/Vol] 133 mmol/L Low 134-146 [facility] Comment on above: Performed By: #### P INR, 68380-6, 86186-8, CBCA, 89170-0, CMP, 4548-4, 6873-4 #### [facility] ([id number]) [address] [place] [address] 77787 #### HA1C #### [facility] ([id number]) [address] [facility], [address] [place] [address] Urea nitrogen [Mass/Vol] 25 mg/dL Normal 5-27 [facility] Comment on above: Performed By: #### P INR, 59188-3, 61010-1, CBCA, 48883-7, CMP, 4548-4, 6873-4 #### [facility] ([id number]) [address] [place] [address] 25502 #### HA1C #### [facility] ([id number]) [address], [address] [place] [address] Glucose Glucometer (BldC) [M ass/Vol]on 05-30-2024 Glucose [Mass/Vol] 194 mg/dL High 65-99 [facility] Glucose [Mass/Vol] 176 mg/dL High 65-99 [facility] Glucose [Mass/Vol] 131 mg/dL High 65-99 [facility] Glucose [Mass/Vol] 122 mg/dL High 65-99 [facility] CBC AND AUTO DIFFon 05-29-20 24 ABSOLUTE BASOPHIL 0.0 X10E9/L Normal 0.0-0.2 [facility] Comment on above: Performed By: #### P INR, 41681-3, 90712-9, CBCA, 34995-1, CMP, 4548-4, 6873-4 #### [facility] ([id number]) [address] [place] [address] 48621 #### HA1C #### [facility] ([id number]) [address], [address] [place] [address] ABSOLUTE NEUTROPHIL 3.0 X10E9/L Normal 1.5-6.6 [facility] Comment on above: Performed By: #### P INR, 12640-9, 20556-8, CBCA, 23344-2, CMP, 4548-4, 6873-4 #### [facility] ([id number]) [address] [place] [address] 81053 #### HA1C #### [facility] ([id number]) [address], [address] [place] [address] Basophils/100 WBC (Bld) 0.5 % Normal [facility] Comment on above: Performed By: #### P INR, 97935-2, 25405-5, CBCA, 23465-8, CMP, 4548-4, 6873-4 #### [facility] ([id number]) [address] [place] [address] 00172 #### HA1C #### [facility] ([id number]) [address], [address] [place] [address] Eosinophils (Bld) [#/Vol] 0.3 10*3/uL Normal 0.0-0.4 [facility] Comment on above: Performed By: #### P INR, 89907-0, 13919-2, CBCA, 03567-0, CMP, 4548-4, 6873-4 #### [facility] ([id number]) [address] [place] [address] 13554 #### HA1C #### [facility] ([id number]) [address], [address] [place] [address] Eosinophils/100 WBC (Bld) 6.0 % Normal [facility] Comment on above: Performed By: #### P INR, 38621-0, 31782-3, CBCA, 83021-3, CMP, 4548-4, 6873-4 #### [facility] ([id number]) [address] [place] [address] 56791 #### HA1C #### [facility] ([id number]) [address], [address] [place] [address] Erythrocyte distribution width (RBC) [Ratio] 15.7 % High 11.5-15.0 [facility] Comment on above: Performed By: #### P INR, 40553-5, 77712-4, CBCA, 77006-4, CMP, 4548-4, 6873-4 #### [facility] ([id number]) [address] [place] [address] #### HA1C #### [facility] ([id number]) [address], [address] [place] [address] Hematocrit (Bld) [Volume fraction] 31.8 % Low 39-49 [facility] Comment on above: Performed By: #### P INR, 39035-1, 47347-0, CBCA, 22830-0, CMP, 4548-4, 6873-4 #### [facility] ([id number]) [address] [place] [address] 70401 #### HA1C #### [facility] ([id number]) [address], [address] [place] [address] Hemoglobin (Bld) [Mass/Vol] 10.7 g/dL Low 13.0-17.0 [facility] Comment on above: Performed By: #### P INR, 98353-8, 69713-5, CBCA, 47220-3, CMP, 4548-4, 6873-4 #### [facility] ([id number]) [address] [place] [address] 89546 #### HA1C #### [facility] ([id number]) [address], [address] [place] [address] Lymphocytes (Bld) [#/Vol] 0.7 10*3/uL Low 1.0-3.5 [facility] Comment on above: Performed By: #### P INR, 03332-8, 26935-8, CBCA, 91435-6, CMP, 4548-4, 6873-4 #### [facility] ([id number]) [address] [place] [address] 53591 #### HA1C #### [facility] ([id number]) [address], [address] [place] [address] Lymphocytes/100 WBC (Bld) 14.9 % Normal [facility] Comment on above: Performed By: #### P INR, 43300-8, 58301-2, CBCA, 34959-6, CMP, 4548-4, 6873-4 #### [facility] ([id number]) [address] [place] [address] 54966 #### HA1C #### [facility] ([id number]) [address], [address] [place] [address] MCH (RBC) [Entitic mass] 27.7 pg Normal 27-34 [facility] Comment on above: Performed By: #### P INR, 02736-8, 35464-3, CBCA, 18284-0, CMP, 4548-4, 6873-4 #### [facility] ([id number]) [address] [place] [address] 27715 #### HA1C #### [facility] ([id number]) [address], [address] [place] [address] MCHC (RBC) [Mass/Vol] 33.7 g/dL Normal 32-36 [facility] Comment on above: Performed By: #### P INR, 20448-4, 83838-8, CBCA, 24277-3, CMP, 4548-4, 6873-4 #### [facility] ([id number]) [address] [place] [address] 83739 #### HA1C #### [facility] ([id number]) [address], [address] [place] [address] MCV (RBC) [Entitic vol] 82 fL Normal 80-100 [facility] Comment on above: Performed By: #### P INR, 57979-5, 07537-5, CBCA, 72506-1, CMP, 4548-4, 6873-4 #### [facility] ([id number]) [address] [place] [address] 51469 #### HA1C #### [facility] ([id number]) [address], [address] [place] [address] Monocytes (Bld) [#/Vol] 0.5 10*3/uL Normal 0-0.9 [facility] Comment on above: Performed By: #### P INR, 99321-3, 28488-3, CBCA, 97058-4, CMP, 4548-4, 6873-4 #### [facility] ([id number]) [address] [place] [address] 37382 #### HA1C #### [facility] ([id number]) [address], [address] [place] [address] Monocytes/100 WBC (Bld) 11.2 % Normal [facility] Comment on above: Performed By: #### P INR, 06977-2, 42929-6, CBCA, 42479-5, CMP, 4548-4, 6873-4 #### [facility] ([id number]) [address] [place] [address] 31284 #### HA1C #### [facility] ([id number]) [address], [address] [place] [address] Neutrophils/100 WBC (Bld) 67.4 % Normal [facility] Comment on above: Performed By: #### P INR, 54877-8, 27064-6, CBCA, 52857-5, CMP, 4548-4, 6873-4 #### [facility] ([id number]) [address] [place] [address] 56782 #### HA1C #### [facility] ([id number]) [address], [address] [place] [address] Platelet mean volume (Bld) [Entitic vol] 7.4 fL Normal 7-12 [facility] Comment on above: Performed By: #### P INR, 40616-1, 17433-7, CBCA, 27536-0, CMP, 4548-4, 6873-4 #### [facility] ([id number]) [address] [place] [address] 36195 #### HA1C #### [facility] ([id number]) [address], [address] [place] [address] Platelets (Bld) [#/Vol] 263 10*3/uL Normal 150-450 [facility] Comment on above: Performed By: #### P INR, 57850-4, 68180-9, CBCA, 06211-9, CMP, 4548-4, 6873-4 #### [facility] ([id number]) [address] [place] [address] 16455 #### HA1C #### [facility] ([id number]) [address] [facility], [address] [place] [address] RBC COUNT 3.86 X10E12/L Low 4.10-5.70 [facility] Comment on above: Performed By: #### P INR, 98410-3, 48544-7, CBCA, 18570-2, CMP, 4548-4, 6873-4 #### [facility] ([id number]) [address] [place] [address] 09243 #### HA1C #### [facility] ([id number]) [address] [facility], [address] [place] [address] WBC (Bld) [#/Vol] 4.4 10*3/uL Normal 4.0-11.0 [facility] Comment on above: Performed By: #### P INR, 74227-4, 34120-9, CBCA, 26735-6, CMP, 4548-4, 6873-4 #### [facility] ([id number]) [address] [place] [address] 30852 #### HA1C #### [facility] ([id number]) [address] [facility], [address] [place] [address] COMPREHENSIVE METABOLIC PANE [place] 05-29-2024 Albumin [Mass/Vol] 3.1 g/dL Low 3.2-5.3 [facility] Comment on above: Performed By: #### P INR, 36081-1, 93843-1, CBCA, 00504-7, CMP, 4548-4, 6873-4 #### [facility] ([id number]) [address] [place] [address] 04002 #### HA1C #### [facility] ([id number]) [address] [facility], [address] [place] [address] ALP [Catalytic activity/Vol] 79 U/L Normal 39-130 [facility] Comment on above: Performed By: #### P INR, 26837-7, 92121-6, CBCA, 71534-7, CMP, 4548-4, 6873-4 #### [facility] ([id number]) [address] [place] [address] 71125 #### HA1C #### [facility] ([id number]) [address] [facility], [address] [place] [address] ALT [Catalytic activity/Vol] 23 U/L Normal 0-40 [facility] Comment on above: Performed By: #### P INR, 76682-1, 55931-1, CBCA, 12387-7, CMP, 4548-4, 6873-4 #### [facility] ([id number]) [address] [place] [address] #### HA1C #### [facility] ([id number]) [address], [address] [place] [address] Anion gap [Moles/Vol] 9 mmol/L Normal 5-15 [facility] Comment on above: Performed By: #### P INR, 98904-0, 76294-4, CBCA, 01448-9, CMP, 4548-4, 6873-4 #### [facility] ([id number]) [address] [place] [address] #### HA1C #### [facility] ([id number]) [address], [address] [place] [address] AST [Catalytic activity/Vol] 20 U/L Normal 0-41 [facility] Comment on above: Performed By: #### P INR, 38644-9, 62404-7, CBCA, 37035-3, CMP, 4548-4, 6873-4 #### [facility] ([id number]) [address] [place] [address] #### HA1C #### [facility] ([id number]) [address], [address] [place] [address] Bilirubin [Mass/Vol] 0.5 mg/dL Normal 0.3-1.2 [facility] Comment on above: Performed By: #### P INR, 21328-5, 66412-6, CBCA, 66585-3, CMP, 4548-4, 6873-4 #### [facility] ([id number]) [address] [place] [address] #### HA1C #### [facility] ([id number]) [address], [address] [place] [address] Calcium [Mass/Vol] 8.6 mg/dL Normal 8.5-10.5 [facility] Comment on above: Performed By: #### P INR, 03683-3, 36355-3, CBCA, 40067-4, CMP, 4548-4, 6873-4 #### [facility] ([id number]) [address] [place] [address] #### HA1C #### [facility] ([id number]) [address], [address] [place] [address] Chloride [Moles/Vol] 102 mmol/L Normal 98-109 [facility] Comment on above: Performed By: #### P INR, 94758-7, 50869-6, CBCA, 82286-5, CMP, 4548-4, 6873-4 #### [facility] ([id number]) [address] [place] [address] #### HA1C #### [facility] ([id number]) [address], [address] [place] [address] CO2 [Moles/Vol] 24 mmol/L Normal 22-32 [facility] Comment on above: Performed By: #### P INR, 03691-6, 63771-5, CBCA, 66910-4, CMP, 4548-4, 6873-4 #### [facility] ([id number]) [address] [place] [address] #### HA1C #### [facility] ([id number]) [address], [address] [place] [address] Creatinine [Mass/Vol] 1.13 mg/dL Normal 0.70-1.20 [facility] Comment on above: Result Comment: METH OD TRACEABLE TO IDMS STANDARD Performed By: #### P INR, 54702-7, 04122-7, CBCA, 41388-3, CMP, 4548-4, 6873-4 #### [facility] ([id number]) [address] [place] [address] #### HA1C #### [facility] ([id number]) [address], [address] [place] [address] GFR/1.73 sq M.predicted among non-blacks MDRD (S/P/Bld) [Vol rate/Area] 70 mL/min/{1.73_m2} Normal >59 [facility] Comment on above: Result Comment: Reported eGFR is based on the CKD-EPI 2020 equation that does not use a race coefficient. Performed By: #### P INR, 73260-2, 27538-9, CBCA, 91630-1, CMP, 4548-4, 6873-4 #### [facility] ([id number]) [address] [place] [address] #### HA1C #### [facility] ([id number]) [address], [address] [place] [address] Glucose [Mass/Vol] 133 mg/dL High 65-99 [facility] Comment on above: Performed By: #### P INR, 71377-0, 22766-3, CBCA, 60712-1, CMP, 4548-4, 6873-4 #### [facility] ([id number]) [address] [place] [address]1629 #### HA1C #### [facility] ([id number]) [address] [facility], [address] [place] [address] Potassium [Moles/Vol] 3.5 mmol/L Normal 3.5-5.0 [facility] Comment on above: Performed By: #### P INR, 76813-0, 45236-2, CBCA, 16141-2, CMP, 4548-4, 6873-4 #### [facility] ([id number]) [address] [place] [address] #### HA1C #### [facility] ([id number]) [address], [address] [place] [address] Protein [Mass/Vol] 6.2 g/dL Normal 6.0-8.0 [facility] Comment on above: Performed By: #### P INR, 56276-9, 19440-3, CBCA, 00533-5, CMP, 4548-4, 6873-4 #### [facility] ([id number]) [address] [place] [address]14 #### HA1C #### [facility] ([id number]) [address], [address] [place] [address] Sodium [Moles/Vol] 135 mmol/L Normal 134-146 [facility] Comment on above: Performed By: #### P INR, 95444-1, 19253-5, CBCA, 87034-5, CMP, 4548-4, 6873-4 #### [facility] ([id number]) [address] [place] [address] 51078 #### HA1C #### [facility] ([id number]) [address], [address] [place] [address] Urea nitrogen [Mass/Vol] 52 mg/dL High 5-27 [facility] Comment on above: Performed By: #### P INR, 83610-3, 08341-5, CBCA, 96382-1, CMP, 4548-4, 6873-4 #### [facility] ([id number]) [address] [place] [address] 88149 #### HA1C #### [facility] ([id number]) [address], [address] [place] [address] Glucose Glucometer (dC) [M ass/Vol]on 05-29-2024 Glucose [Mass/Vol] 167 mg/dL High 65-99 [facility] Glucose [Mass/Vol] 127 mg/dL High 65-99 [facility] Glucose [Mass/Vol] 168 mg/dL High 65-99 [facility] POTASSIUMon 05-29-2024 Potassium [Moles/Vol] 4.1 mmol/L Normal 3.5-5.0 [facility] Comment on above: Performed By: #### P INR, 61461-7, 24980-6, CBCA, 15112-2, CMP, 4548-4, 6873-4 #### [facility] ([id number]) [address] [place] [address] 98981 #### HA1C #### [facility] ([id number]) [address] [facility], [address] [place] [address] Potassium [Moles/Vol] 3.7 mmol/L Normal 3.5-5.0 [facility] Comment on above: Performed By: #### P INR, 91222-1, 92577-1, CBCA, 00999-4, CMP, 4548-4, 6873-4 #### [facility] ([id number]) [address] [place] [address] 04854 #### HA1C #### [facility] ([id number]) [address] [facility], [address] [place] [address] CBC AND AUTO DIFFon 05-28-20 24 ABSOLUTE BASOPHIL 0.0 X10E9/L Normal 0.0-0.2 [facility] Comment on above: Performed By: #### P INR, 20580-6, 51262-6, CBCA, 20637-8, CMP, 4548-4, 6873-4 #### [facility] ([id number]) [address] [place] [address] 99590 #### HA1C #### [facility] ([id number]) [address] [facility], [address] [place] [address] ABSOLUTE NEUTROPHIL 5.2 X10E9/L Normal 1.5-6.6 [facility] Comment on above: Performed By: #### P INR, 72129-4, 52043-4, CBCA, 88090-9, CMP, 4548-4, 6873-4 #### [facility] ([id number]) [address] [place] [address] 33227 #### HA1C #### [facility] ([id number]) [address], [address] [place] [address] Basophils/100 WBC (Bld) 0.2 % Normal [facility] Comment on above: Performed By: #### P INR, 86091-9, 94331-8, CBCA, 23685-1, CMP, 4548-4, 6873-4 #### [facility] ([id number]) [address] [place] [address] 18622 #### HA1C #### [facility] ([id number]) [address] [facility], [address] [place] [address] Eosinophils (Bld) [#/Vol] 0.1 10*3/uL Normal 0.0-0.4 [facility] Comment on above: Performed By: #### P INR, 49605-3, 21862-2, CBCA, 89142-8, CMP, 4548-4, 6873-4 #### [facility] ([id number]) [address] [place] [address] 02689 #### HA1C #### [facility] ([id number]) [address] [facility], [address] [place] [address] Eosinophils/100 WBC (Bld) 1.1 % Normal [facility] Comment on above: Performed By: #### P INR, 94071-3, 31233-8, CBCA, 43494-0, CMP, 4548-4, 6873-4 #### [facility] ([id number]) [address] [place] [address] 78786 #### HA1C #### [facility] ([id number]) [address] [facility], [address] [place] [address] Erythrocyte distribution width (RBC) [Ratio] 15.6 % High 11.5-15.0 [facility] Comment on above: Performed By: #### P INR, 96802-5, 46105-6, CBCA, 14176-0, CMP, 4548-4, 6873-4 #### [facility] ([id number]) [address] [place] [address] 02084 #### HA1C #### [facility] ([id number]) [address] [facility], [address] [place] [address] Hematocrit (Bld) [Volume fraction] 33.8 % Low 39-49 [facility] Comment on above: Performed By: #### P INR, 45554-9, 80267-4, CBCA, 91637-8, CMP, 4548-4, 6873-4 #### [facility] ([id number]) [address] [place] [address] 97815 #### HA1C #### [facility] ([id number]) [address] [facility], [address] [place] [address] Hemoglobin (Bld) [Mass/Vol] 11.2 g/dL Low 13.0-17.0 [facility] Comment on above: Performed By: #### P INR, 02703-1, 97126-0, CBCA, 03248-2, CMP, 4548-4, 6873-4 #### [facility] ([id number]) [address] [place] [address] 47246 #### HA1C #### [facility] ([id number]) [address] [facility], [address] [place] [address] Lymphocytes (Bld) [#/Vol] 0.6 10*3/uL Low 1.0-3.5 [facility] Comment on above: Performed By: #### P INR, 17465-4, 06448-6, CBCA, 74368-1, CMP, 4548-4, 6873-4 #### [facility] ([id number]) [address] [place] [address] 97182 #### HA1C #### [facility] ([id number]) [address], [address] [place] [address] Lymphocytes/100 WBC (Bld) 9.4 % Normal [facility] Comment on above: Performed By: #### P INR, 71531-2, 21126-3, CBCA, 82696-0, CMP, 4548-4, 6873-4 #### [facility] ([id number]) [address] [place] [address] 11544 #### HA1C #### [facility] ([id number]) [address] [facility], [address] [place] [address] MCH (RBC) [Entitic mass] 27.4 pg Normal 27-34 [facility] Comment on above: Performed By: #### P INR, 80775-3, 46714-0, CBCA, 22632-3, CMP, 4548-4, 6873-4 #### [facility] ([id number]) [address] [place] [address] 17406 #### HA1C #### [facility] ([id number]) [address] [facility], [address] [place] [address] MCHC (RBC) [Mass/Vol] 33.2 g/dL Normal 32-36 [facility] Comment on above: Performed By: #### P INR, 51700-0, 44739-2, CBCA, 66862-9, CMP, 4548-4, 6873-4 #### [facility] ([id number]) [address] [place] [address] 28073 #### HA1C #### [facility] ([id number]) [address], [address] [place] [address] MCV (RBC) [Entitic vol] 83 fL Normal 80-100 [facility] Comment on above: Performed By: #### P INR, 20008-6, 03100-7, CBCA, 43272-4, CMP, 4548-4, 6873-4 #### [facility] ([id number]) [address] [place] [address] 99024 #### HA1C #### [facility] ([id number]) [address], [address] [place] [address] Monocytes (Bld) [#/Vol] 0.6 10*3/uL Normal 0-0.9 [facility] Comment on above: Performed By: #### P INR, 29772-9, 73508-3, CBCA, 93251-6, CMP, 4548-4, 6873-4 #### [facility] ([id number]) [address] [place] [address] 45668 #### HA1C #### [facility] ([id number]) [address], [address] [place] [address] Monocytes/100 WBC (Bld) 9.1 % Normal [facility] Comment on above: Performed By: #### P INR, 99883-3, 49907-0, CBCA, 67527-5, CMP, 4548-4, 6873-4 #### [facility] ([id number]) [address] [place] [address] 79526 #### HA1C #### [facility] ([id number]) [address], [address] [place] [address] Neutrophils/100 WBC (Bld) 80.2 % Normal [facility] Comment on above: Performed By: #### P INR, 56281-2, 99334-0, CBCA, 81147-6, CMP, 4548-4, 6873-4 #### [facility] ([id number]) [address] [place] [address] 11319 #### HA1C #### [facility] ([id number]) [address], [address] [place] [address] Platelet mean volume (Bld) [Entitic vol] 7.8 fL Normal 7-12 [facility] Comment on above: Performed By: #### P INR, 66531-2, 96772-3, CBCA, 44172-6, CMP, 4548-4, 6873-4 #### [facility] ([id number]) [address] [place] [address] 69609 #### HA1C #### [facility] ([id number]) [address], [address] [place] [address] Platelets (Bld) [#/Vol] 263 10*3/uL Normal 150-450 [facility] Comment on above: Performed By: #### P INR, 33059-2, 27889-3, CBCA, 43989-7, CMP, 4548-4, 6873-4 #### [facility] ([id number]) [address] [place] [address] 73622 #### HA1C #### [facility] ([id number]) [address] [facility] [facility] [address] [place] [address] RBC COUNT 4.09 X10E12/L Low 4.10-5.70 [facility] Comment on above: Performed By: #### P INR, 34097-4, 51290-3, CBCA, 83010-1, CMP, 4548-4, 6873-4 #### [facility] ([id number]) [address] [place] [address] 75200 #### HA1C #### [facility] ([id number]) [address], [address] [place] [address] WBC (Bld) [#/Vol] 6.5 10*3/uL Normal 4.0-11.0 [facility] Comment on above: Performed By: #### P INR, 57238-5, 15484-2, CBCA, 87755-1, CMP, 4548-4, 6873-4 #### [facility] ([id number]) [address] [place] [address] 85657 #### HA1C #### [facility] ([id number]) [address], [address] [place] [address] COMPREHENSIVE METABOLIC PANE [place] 05-28-2024 Albumin [Mass/Vol] 3.6 g/dL Normal 3.2-5.3 [facility] Comment on above: Performed By: #### P INR, 17416-2, 73984-5, CBCA, 60971-0, CMP, 4548-4, 6873-4 #### [facility] ([id number]) [address] [place] [address] 43584 #### HA1C #### [facility] ([id number]) [address] [facility], [address] [place] [address] ALP [Catalytic activity/Vol] 91 U/L Normal 39-130 [facility] Comment on above: Performed By: #### P INR, 95531-1, 39963-4, CBCA, 86322-1, CMP, 4548-4, 6873-4 #### [facility] ([id number]) [address] [place] [address] 62036 #### HA1C #### [facility] ([id number]) [address], [address] [place] [address] ALT [Catalytic activity/Vol] 21 U/L Normal 0-40 [facility] Comment on above: Performed By: #### P INR, 48164-4, 03034-9, CBCA, 41577-0, CMP, 4548-4, 6873-4 #### [facility] ([id number]) [address] [place] [address] 02354 #### HA1C #### [facility] ([id number]) [address], [address] [place] [address] Anion gap [Moles/Vol] 12 mmol/L Normal 5-15 [facility] Comment on above: Performed By: #### P INR, 41085-3, 47335-3, CBCA, 23559-6, CMP, 4548-4, 6873-4 #### [facility] ([id number]) [address] [place] [address] 22574 #### HA1C #### [facility] ([id number]) [address], [address] [place] [address] AST [Catalytic activity/Vol] 18 U/L Normal 0-41 [facility] Comment on above: Performed By: #### P INR, 99583-6, 45823-4, CBCA, 57209-8, CMP, 4548-4, 6873-4 #### [facility] ([id number]) [address] [place] [address] 27436 #### HA1C #### [facility] ([id number]) [address], [address] [place] [address] Bilirubin [Mass/Vol] 0.7 mg/dL Normal 0.3-1.2 [facility] Comment on above: Performed By: #### P INR, 24955-9, 80525-3, CBCA, 23100-1, CMP, 4548-4, 6873-4 #### [facility] ([id number]) [address] [place] [address] 36385 #### HA1C #### [facility] ([id number]) [address], [address] [place] [address] Calcium [Mass/Vol] 8.9 mg/dL Normal 8.5-10.5 [facility] Comment on above: Performed By: #### P INR, 59328-6, 66119-3, CBCA, 82973-1, CMP, 4548-4, 6873-4 #### [facility] ([id number]) [address] [place] [address] 48442 #### HA1C #### [facility] ([id number]) [address], [address] [place] [address] Chloride [Moles/Vol] 98 mmol/L Normal 98-109 [facility] Comment on above: Performed By: #### P INR, 69730-4, 63421-7, CBCA, 14176-2, CMP, 4548-4, 6873-4 #### [facility] ([id number]) [address] [place] [address] 47744 #### HA1C #### [facility] ([id number]) [address], [address] [place] [address] CO2 [Moles/Vol] 23 mmol/L Normal 22-32 [facility] Comment on above: Performed By: #### P INR, 59703-3, 17554-1, CBCA, 29116-1, CMP, 4548-4, 6873-4 #### [facility] ([id number]) [address] [place] [address] 75019 #### HA1C #### [facility] ([id number]) [address], [address] [place] [address] Creatinine [Mass/Vol] 1.88 mg/dL High 0.70-1.20 [facility] Comment on above: Result Comment: METH OD TRACEABLE TO IDMS STANDARD Performed By: #### P INR, 00085-7, 40558-5, CBCA, 64143-5, CMP, 4548-4, 6873-4 #### [facility] ([id number]) [address] [place] [address] 86270 #### HA1C #### [facility] ([id number]) [address], [address] [place] [address] GFR/1.73 sq M.predicted among non-blacks MDRD (S/P/Bld) [Vol rate/Area] 38 mL/min/{1.73_m2} Low >59 [facility] Comment on above: Result Comment: Reported eGFR is based on the CKD-EPI 1 equation that does not use a race coefficient. Performed By: #### P INR, 61322-4, 42575-5, CBCA, 63286-0, CMP, 4548-4, 6873-4 #### [facility] ([id number]) [address] [place] [address] 08206 #### HA1C #### [facility] ([id number]) [address] [place] [address] Glucose [Mass/Vol] 157 mg/dL High 65-99 [facility] Comment on above: Performed By: #### P INR, 58447-6, 51354-4, CBCA, 80398-9, CMP, 4548-4, 6873-4 #### [facility] ([id number]) [address] [place] [address] 96189 #### HA1C #### [facility] ([id number]) [address] [facility] [place] [address] Potassium [Moles/Vol] 3.6 mmol/L Normal 3.5-5.0 [facility] Comment on above: Performed By: #### P INR, 92287-3, 84162-2, CBCA, 92667-1, CMP, 4548-4, 6873-4 #### [facility] ([id number]) [address] [place] [address] 58312 #### HA1C #### [facility] ([id number]) [address], [address] [place] [address] Protein [Mass/Vol] 6.8 g/dL Normal 6.0-8.0 [facility] Comment on above: Performed By: #### P INR, 88588-5, 97131-3, CBCA, 39994-8, CMP, 4548-4, 6873-4 #### [facility] ([id number]) [address] [place] [address] 61929 #### HA1C #### [facility] ([id number]) [address], [address] [place] [address] Sodium [Moles/Vol] 133 mmol/L Low 134-146 [facility] Comment on above: Performed By: #### P INR, 99731-5, 22993-3, CBCA, 80078-0, CMP, 4548-4, 6873-4 #### [facility] ([id number]) [address] [place] [address] 23517 #### HA1C #### [facility] ([id number]) [address], [address] [place] [address] Urea nitrogen [Mass/Vol] 87 mg/dL High 5-27 [facility] Comment on above: Performed By: #### P INR, 52716-8, 54801-0, CBCA, 17035-3, CMP, 4548-4, 6873-4 #### [facility] ([id number]) [address] [place] [address] 08217 #### HA1C #### [facility] ([id number]) [address], [address] [place] [address] Glucose Glucometer (dC) [M ass/Vol]on 05-28-2024 Glucose [Mass/Vol] 148 mg/dL High 65-99 [facility] Glucose [Mass/Vol] 174 mg/dL High 65-99 [facility] Glucose [Mass/Vol] 177 mg/dL High 65-99 [facility] MAGNESIUMon 05-28-2024 Magnesium [Mass/Vol] 2.1 mg/dL Normal 1.8-2.6 [facility] Comment on above: Performed By: #### P INR, 74002-9, 23344-4, CBCA, 02449-3, CMP, 4548-4, 6873-4 #### [facility] ([id number]) [address] [place] [address] 13051 #### HA1C #### [facility] ([id number]) [address], [address] [place] [address] PHOSPHORUSon 05-28-2024 Phosphate [Mass/Vol] 4.4 mg/dL Normal 2.4-4.9 [facility] Comment on above: Performed By: #### P INR, 91953-5, 15853-3, CBCA, 04192-2, CMP, 4548-4, 6873-4 #### [facility] ([id number]) [address] [place] [address] 03170 #### HA1C #### [facility] ([id number]) [address], [address] [place] [address] POTASSIUMon 05-28-2024 Potassium [Moles/Vol] 3.6 mmol/L Normal 3.5-5.0 [facility] Comment on above: Performed By: #### P INR, 31314-3, 69977-7, CBCA, 75470-9, CMP, 4548-4, 6873-4 #### [facility] ([id number]) [address] [place] [address] 76841 #### HA1C #### [facility] ([id number]) [address], [address] [place] [address] CBC AND AUTO DIFFon 05-27-20 24 ABSOLUTE BASOPHIL 0.0 X10E9/L Normal 0.0-0.2 [facility] Comment on above: Performed By: #### P INR, 43330-2, 85375-9, CBCA, 12839-7, CMP, 4548-4, 6873-4 #### [facility] ([id number]) [address] [place] [address] 55293 #### HA1C #### [facility] ([id number]) [address], [address] [place] [address] ABSOLUTE NEUTROPHIL 12.1 X10E9/L High 1.5-6.6 [facility] Comment on above: Performed By: #### P INR, 47131-5, 51849-5, CBCA, 54210-8, CMP, 4548-4, 6873-4 #### [facility] ([id number]) [address] [place] [address] 44185 #### HA1C #### [facility] ([id number]) [address] [place] [address] Basophils/100 WBC (Bld) 0.3 % Normal [facility] Comment on above: Performed By: #### P INR, 07878-2, 51872-9, CBCA, 00002-6, CMP, 4548-4, 6873-4 #### [facility] ([id number]) [address] [place] [address] 51558 #### HA1C #### [facility] ([id number]) [address] [place] [address] Eosinophils (Bld) [#/Vol] 0.0 10*3/uL Normal 0.0-0.4 [facility] Comment on above: Performed By: #### P INR, 90154-6, 57944-8, CBCA, 96378-2, CMP, 4548-4, 6873-4 #### [facility] ([id number]) [address] [place] [address] 14479 #### HA1C #### [facility] ([id number]) [address], [address] [place] [address] Eosinophils/100 WBC (Bld) 0.2 % Normal [facility] Comment on above: Performed By: #### P INR, 52430-3, 77822-8, CBCA, 53097-0, CMP, 4548-4, 6873-4 #### [facility] ([id number]) [address] [place] [address] 87643 #### HA1C #### [facility] ([id number]) [address] [facility] [address] [place] [address] Erythrocyte distribution width (RBC) [Ratio] 16.2 % High 11.5-15.0 [facility] Comment on above: Performed By: #### P INR, 40311-3, 60112-2, CBCA, 94566-9, CMP, 4548-4, 6873-4 #### [facility] ([id number]) [address] [place] [address] 64644 #### HA1C #### [facility] ([id number]) [address] [address] [place] [address] Hematocrit (Bld) [Volume fraction] 39.5 % Normal 39-49 [facility] Comment on above: Performed By: #### P INR, 84386-0, 34482-4, CBCA, 63271-0, CMP, 4548-4, 6873-4 #### [facility] ([id number]) [address] [place] [address] 08892 #### HA1C #### [facility] ([id number]) [address] [address] [place] [address] Hemoglobin (Bld) [Mass/Vol] 13.2 g/dL Normal 13.0-17.0 [facility] Comment on above: Performed By: #### P INR, 97954-1, 77608-0, CBCA, 41837-8, CMP, 4548-4, 6873-4 #### [facility] ([id number]) [address] [place] [address] 90003 #### HA1C #### [facility] ([id number]) [address] [place] [address] Lymphocytes (Bld) [#/Vol] 0.4 10*3/uL Low 1.0-3.5 [facility] Comment on above: Performed By: #### P INR, 43267-7, 36378-6, CBCA, 43177-3, CMP, 4548-4, 6873-4 #### [facility] ([id number]) [address] [place] [address] 88297 #### HA1C #### [facility] ([id number]) [address] [place] [address] Lymphocytes/100 WBC (Bld) 3.2 % Normal [facility] Comment on above: Performed By: #### P INR, 68920-8, 31864-4, CBCA, 35641-1, CMP, 4548-4, 6873-4 #### [facility] ([id number]) [address] [place] [address] #### HA1C #### [facility] ([id number]) [address], [address] [place] [address] MCH (RBC) [Entitic mass] 27.5 pg Normal 27-34 [facility] Comment on above: Performed By: #### P INR, 89861-5, 78822-2, CBCA, 12166-3, CMP, 4548-4, 6873-4 #### [facility] ([id number]) [address] [place] [address] #### HA1C #### [facility] ([id number]) [address], [address] [place] [address] MCHC (RBC) [Mass/Vol] 33.4 g/dL Normal 32-36 [facility] Comment on above: Performed By: #### P INR, 44172-5, 71208-1, CBCA, 37070-0, CMP, 4548-4, 6873-4 #### [facility] ([id number]) [address] [place] [address] #### HA1C #### [facility] ([id number]) [address], [address] [place] [address] MCV (RBC) [Entitic vol] 82 fL Normal 80-100 [facility] Comment on above: Performed By: #### P INR, 38416-8, 62858-7, CBCA, 42607-4, CMP, 4548-4, 6873-4 #### [facility] ([id number]) [address] [place] [address] 13591 #### HA1C #### [facility] ([id number]) [address], [address] [place] [address] Monocytes (Bld) [#/Vol] 1.0 10*3/uL High 0-0.9 [facility] Comment on above: Performed By: #### P INR, 82793-8, 85929-0, CBCA, 82776-8, CMP, 4548-4, 6873-4 #### [facility] ([id number]) [address] [place] [address] #### HA1C #### [facility] ([id number]) [address], [address] [place] [address] Monocytes/100 WBC (Bld) 7.1 % Normal [facility] Comment on above: Performed By: #### P INR, 80796-6, 55197-5, CBCA, 51678-6, CMP, 4548-4, 6873-4 #### [facility] ([id number]) [address] [place] [address] #### HA1C #### [facility] ([id number]) [address], [address] [place] [address] Neutrophils/100 WBC (Bld) 89.2 % Normal [facility] Comment on above: Performed By: #### P INR, 54775-5, 83077-7, CBCA, 28560-6, CMP, 4548-4, 6873-4 #### [facility] ([id number]) [address] [place] [address]42 #### HA1C #### [facility] ([id number]) [address], [address] [place] [address] Platelet mean volume (Bld) [Entitic vol] 8.0 fL Normal 7-12 [facility] Comment on above: Performed By: #### P INR, 13288-4, 50887-5, CBCA, 76167-0, CMP, 4548-4, 6873-4 #### [facility] ([id number]) [address] [place] [address] #### HA1C #### [facility] ([id number]) [address], [address] [place] [address] Platelets (Bld) [#/Vol] 296 10*3/uL Normal 150-450 [facility] Comment on above: Performed By: #### P INR, 70900-2, 26978-9, CBCA, 34959-8, CMP, 4548-4, 6873-4 #### [facility] ([id number]) [address] [place] [address] #### HA1C #### [facility] ([id number]) [address], [address] [place] [address] RBC COUNT 4.79 X10E12/L Normal 4.10-5.70 [facility] Comment on above: Performed By: #### P INR, 59756-8, 07672-5, CBCA, 56206-5, CMP, 4548-4, 6873-4 #### [facility] ([id number]) [address] [place] [address]25 #### HA1C #### [facility] ([id number]) [address] [facility] [place] [address] WBC (Bld) [#/Vol] 13.5 10*3/uL High 4.0-11.0 [facility] Comment on above: Performed By: #### P INR, 36504-7, 90042-3, CBCA, 50264-4, CMP, 4548-4, 6873-4 #### [facility] ([id number]) [address] [place] [address] #### HA1C #### [facility] ([id number]) [address] [facility], [address] [place] [address] COMPREHENSIVE METABOLIC PANE [place] 05-27-2024 Albumin [Mass/Vol] 4.6 g/dL Normal 3.2-5.3 [facility] Comment on above: Performed By: #### P INR, 97039-5, 78551-5, CBCA, 02537-3, CMP, 4548-4, 6873-4 #### [facility] ([id number]) [address] [place] [address] 07932 #### HA1C #### [facility] ([id number]) [address] [facility], [address] [place] [address] ALP [Catalytic activity/Vol] 112 U/L Normal 39-130 [facility] Comment on above: Performed By: #### P INR, 77694-9, 57649-9, CBCA, 79527-2, CMP, 4548-4, 6873-4 #### [facility] ([id number]) [address] [place] [address] #### HA1C #### [facility] ([id number]) [address], [address] [place] [address] ALT [Catalytic activity/Vol] 23 U/L Normal 0-40 [facility] Comment on above: Performed By: #### P INR, 26877-8, 97765-2, CBCA, 74295-4, CMP, 4548-4, 6873-4 #### [facility] ([id number]) [address] [place] [address] 23953 #### HA1C #### [facility] ([id number]) [address], [address] [place] [address] Anion gap [Moles/Vol] 13 mmol/L Normal 5-15 [facility] Comment on above: Performed By: #### P INR, 49715-4, 76856-6, CBCA, 51775-9, CMP, 4548-4, 6873-4 #### [facility] ([id number]) [address] [place] [address] 76023 #### HA1C #### [facility] ([id number]) [address], [address] [place] [address] AST [Catalytic activity/Vol] 21 U/L Normal 0-41 [facility] Comment on above: Performed By: #### P INR, 23842-2, 97029-1, CBCA, 70582-9, CMP, 4548-4, 6873-4 #### [facility] ([id number]) [address] [place] [address] 09116 #### HA1C #### [facility] ([id number]) [address], [address] [place] [address] Bilirubin [Mass/Vol] 0.7 mg/dL Normal 0.3-1.2 [facility] Comment on above: Performed By: #### P INR, 90548-3, 84303-4, CBCA, 41500-8, CMP, 4548-4, 6873-4 #### [facility] ([id number]) [address] [place] [address] 84333 #### HA1C #### [facility] ([id number]) [address], [address] [place] [address] Calcium [Mass/Vol] 9.6 mg/dL Normal 8.5-10.5 [facility] Comment on above: Performed By: #### P INR, 91735-9, 83468-6, CBCA, 05910-2, CMP, 4548-4, 6873-4 #### [facility] ([id number]) [address] [place] [address] 71514 #### HA1C #### [facility] ([id number]) [address], [address] [place] [address] Chloride [Moles/Vol] 94 mmol/L Low 98-109 [facility] Comment on above: Performed By: #### P INR, 84054-5, 29662-6, CBCA, 99571-1, CMP, 4548-4, 6873-4 #### [facility] ([id number]) [address] [place] [address] 18989 #### HA1C #### [facility] ([id number]) [address], [address] [place] [address] CO2 [Moles/Vol] 21 mmol/L Low 22-32 [facility] Comment on above: Performed By: #### P INR, 11445-5, 69487-4, CBCA, 16070-9, CMP, 4548-4, 6873-4 #### [facility] ([id number]) [address] [place] [address] #### HA1C #### [facility] ([id number]) [address] [facility], [address] [place] [address] Creatinine [Mass/Vol] 2.75 mg/dL High 0.70-1.20 [facility] Comment on above: Result Comment: METH OD TRACEABLE TO IDMS STANDARD Performed By: #### P INR, 83943-6, 57704-1, CBCA, 36830-5, CMP, 4548-4, 6873-4 #### [facility] ([id number]) [address] [place] [address] #### HA1C #### [facility] ([id number]) [address] [facility], [address] [place] [address] GFR/1.73 sq M.predicted among non-blacks MDRD (S/P/Bld) [Vol rate/Area] 24 mL/min/{1.73_m2} Low >59 [facility] Comment on above: Result Comment: Reported eGFR is based on the CKD-EPI 2020 equation that does not use a race coefficient. Performed By: #### P INR, 57621-6, 75361-4, CBCA, 67258-1, CMP, 4548-4, 6873-4 #### [facility] ([id number]) [address] [place] [address] #### HA1C #### [facility] ([id number]) [address], [address] [place] [address] Glucose [Mass/Vol] 223 mg/dL High 65-99 [facility] Comment on above: Performed By: #### P INR, 87786-1, 83440-9, CBCA, 92406-5, CMP, 4548-4, 6873-4 #### [facility] ([id number]) [address] [place] [address] 89885 #### HA1C #### [facility] ([id number]) [address] [facility], [address] [place] [address] Potassium [Moles/Vol] 4.9 mmol/L Normal 3.5-5.0 [facility] Comment on above: Performed By: #### P INR, 19320-7, 22889-3, CBCA, 20347-5, CMP, 4548-4, 6873-4 #### [facility] ([id number]) [address] [place] [address] 84083 #### HA1C #### [facility] ([id number]) [address] [facility], [address] [place] [address] Protein [Mass/Vol] 8.2 g/dL High 6.0-8.0 [facility] Comment on above: Performed By: #### P INR, 36113-2, 07243-1, CBCA, 21773-9, CMP, 4548-4, 6873-4 #### [facility] ([id number]) [address] [place] [address] 57409 #### HA1C #### [facility] ([id number]) [address] [facility], [address] [place] [address] Sodium [Moles/Vol] 128 mmol/L Low 134-146 [facility] Comment on above: Performed By: #### P INR, 51497-3, 84109-2, CBCA, 83366-3, CMP, 4548-4, 6873-4 #### [facility] ([id number]) [address] [place] [address] 57492 #### HA1C #### [facility] ([id number]) [address] [facility], [address] [place] [address] Urea nitrogen [Mass/Vol] 106 mg/dL High 5-27 [facility] Comment on above: Performed By: #### P INR, 87727-3, 92549-3, CBCA, 16318-9, CMP, 4548-4, 6873-4 #### [facility] ([id number]) [address] [place] [address] 21509 #### HA1C #### [facility] ([id number]) [address], [address] [place] [address] Glucose Glucometer (BldC) [M ass/Vol]on 05-27-2024 Glucose [Mass/Vol] 170 mg/dL High 65-99 [facility] MAGNESIUMon 05-27-2024 Magnesium [Mass/Vol] 2.4 mg/dL Normal 1.8-2.6 [facility] Comment on above: Performed By: #### P INR, 46113-2, 29562-7, CBCA, 82277-5, CMP, 4548-4, 6873-4 #### [facility] ([id number]) [address] [place] [address] 45540 #### HA1C #### [facility] ([id number]) [address], [address] [place] [address] Troponin I.cardiac High sens itivity method [Mass/Vol]on 05-27-2024 1 HOUR TROP I, HIGH SENSITIVITY 11 ng/L Normal <21 [facility] Comment on above: Performed By: #### P INR, 37637-7, 95589-4, CBCA, 45141-8, CMP, 4548-4, 6873-4 #### [facility] ([id number]) [address] [place] [address] 98267 #### HA1C #### [facility] ([id number]) [address], [address] [place] [address] TROPONIN I, HIGH SENSITIVITY 10 ng/L Normal <21 [facility] Comment on above: Performed By: #### P INR, 19817-8, 06317-1, CBCA, 14469-2, CMP, 4548-4, 6873-4 #### [facility] ([id number]) [address] [place] [address] 60451 #### HA1C #### [facility] ([id number]) [address], [address] [place] [address] URN MACROSCOPIC NURon 2023 BILIRUBIN ALLYN Negative Normal NEG [facility] Comment on above: Performed By: #### P INR, 48985-9, 21027-2, CBCA, 90901-6, CMP, 4548-4, 6873-4 #### [facility] ([id number]) [address] [place] [address] 20446 #### HA1C #### [facility] ([id number]) [address], [address] [place] [address] BLOOD/HGB ALLYN Large Abnormal NEG [facility] Comment on above: Performed By: #### P INR, 02879-4, 57064-9, CBCA, 94943-5, CMP, 4548-4, 6873-4 #### [facility] ([id number]) [address] [place] [address] 53951 #### HA1C #### [facility] ([id number]) [address], [address] [place] [address] GLUCOSE ALLYN Negative Normal NEG [facility] Comment on above: Performed By: #### P INR, 66564-8, 49359-7, CBCA, 95590-1, CMP, 4548-4, 6873-4 #### [facility] ([id number]) [address] [place] [address] 29418 #### HA1C #### [facility] ([id number]) [address], [address] [place] [address] KETONES ALLYN Negative Normal NEG [facility] Comment on above: Performed By: #### P INR, 43590-3, 25698-3, CBCA, 79842-7, CMP, 4548-4, 6873-4 #### [facility] ([id number]) [address] [place] [address] 05885 #### HA1C #### [facility] ([id number]) [address] [facility], [address] [place] [address] LEUKOCYTE ESTERASE ALLYN Negative Normal NEG [facility] Comment on above: Performed By: #### P INR, 90607-8, 46841-9, CBCA, 06132-1, CMP, 4548-4, 6873-4 #### [facility] ([id number]) [address] [place] [address] 99784 #### HA1C #### [facility] ([id number]) [address] [facility], [address] [place] [address] NITRITE ALLYN Negative Normal NEG [facility] Comment on above: Performed By: #### P INR, 24520-3, 40268-5, CBCA, 09775-8, CMP, 4548-4, 6873-4 #### [facility] ([id number]) [address] [place] [address] 72775 #### HA1C #### [facility] ([id number]) [address] [facility], [address] [place] [address] PH ALLYN 5.5 Normal 5.0-8.5 [facility] Comment on above: Performed By: #### P INR, 21517-6, 47678-3, CBCA, 90882-7, CMP, 4548-4, 6873-4 #### [facility] ([id number]) [address] [place] [address] 85580 #### HA1C #### [facility] ([id number]) [address] [facility], [address] [place] [address] PROTEIN ALLYN 30 mg/dL Abnormal NEG [facility] Comment on above: Performed By: #### P INR, 12439-1, 63929-6, CBCA, 24356-2, CMP, 4548-4, 6873-4 #### [facility] ([id number]) [address] [place] [address] 63546 #### HA1C #### [facility] ([id number]) [address] [facility], [address] [place] [address] SPECIFIC GRAVITY ALLYN 1.025 Normal 1.003-1 .03 5 [facility] Comment on above: Performed By: #### P INR, 09905-1, 64128-8, CBCA, 86600-5, CMP, 4548-4, 6873-4 #### [facility] ([id number]) [address] [place] [address] 79554 #### HA1C #### [facility] ([id number]) [address] [facility], [address] [place] [address] UROBILINOGEN ALLYN 0.2 eu/dL Normal <1.1 [facility] Comment on above: Performed By: #### P INR, 98802-0, 32082-1, CBCA, 28850-8, CMP, 4548-4, 6873-4 #### [facility] ([id number]) [address] [place] [address] 96344 #### HA1C #### [facility] ([id number]) [address] [facility], [address] [place] [address] BASIC METABOLIC PANLon 05-12 Anion gap [Moles/Vol] 8 mmol/L Normal 5-15 [facility] Comment on above: Performed By: #### P INR, 61835-1, 41889-6, CBCA, 24125-7, CMP, 4548-4, 6873-4 #### [facility] ([id number]) [address] [place] [address] 82435 #### HA1C #### [facility] ([id number]) [address], [address] [place] [address] Calcium [Mass/Vol] 8.9 mg/dL Normal 8.5-10.5 [facility] Comment on above: Performed By: #### P INR, 82806-2, 66988-0, CBCA, 06184-0, CMP, 4548-4, 6873-4 #### [facility] ([id number]) [address] [place] [address] 99213 #### HA1C #### [facility] ([id number]) [address], [address] [place] [address] Chloride [Moles/Vol] 102 mmol/L Normal 98-109 [facility] Comment on above: Performed By: #### P INR, 35561-2, 37349-0, CBCA, 13816-5, CMP, 4548-4, 6873-4 #### [facility] ([id number]) [address] [place] [address] 49379 #### HA1C #### [facility] ([id number]) [address], [address] [place] [address] CO2 [Moles/Vol] 26 mmol/L Normal 22-32 [facility] Comment on above: Performed By: #### P INR, 70393-4, 36770-8, CBCA, 66798-7, CMP, 4548-4, 6873-4 #### [facility] ([id number]) [address] [place] [address] 30894 #### HA1C #### [facility] ([id number]) [address], [address] [place] [address] Creatinine [Mass/Vol] 0.68 mg/dL Low 0.70-1.20 [facility] Comment on above: Result Comment: METH OD TRACEABLE TO IDMS STANDARD Performed By: #### P INR, 87917-4, 19975-9, CBCA, 97257-0, CMP, 4548-4, 6873-4 #### [facility] ([id number]) [address] [place] [address] 68560 #### HA1C #### [facility] ([id number]) [address] [facility], [address] [place] [address] eGFR (CKD-EPI) NON-RACE DEPENDENT >90 Normal >59 [facility] Comment on above: Result Comment: Reported eGFR is based on the CKD-EPI 2020 equation that does not use a race coefficient. Performed By: #### P INR, 47899-4, 57578-6, CBCA, 67389-2, CMP, 4548-4, 6873-4 #### [facility] ([id number]) [address] [place] [address] 00571 #### HA1C #### [facility] ([id number]) [address] [place] [address], [address] [place] [address] Glucose [Mass/Vol] 143 mg/dL High 65-99 [facility] Comment on above: Performed By: #### P INR, 72372-9, 25634-5, CBCA, 91680-8, CMP, 4548-4, 6873-4 #### [facility] ([id number]) [address] [place] [address] 61029 #### HA1C #### [facility] ([id number]) [address] [place] [address], [address] [place] [address] Potassium [Moles/Vol] 3.7 mmol/L Normal 3.5-5.0 [facility] Comment on above: Performed By: #### P INR, 84242-8, 93981-5, CBCA, 57402-1, CMP, 4548-4, 6873-4 #### [facility] ([id number]) [address] [place] [address] 33246 #### HA1C #### [facility] ([id number]) [address], [address] [place] [address] Sodium [Moles/Vol] 136 mmol/L Normal 134-146 [facility] Comment on above: Performed By: #### P INR, 67240-0, 33030-9, CBCA, 65779-4, CMP, 4548-4, 6873-4 #### [facility] ([id number]) [address] [place] [address] 26235 #### HA1C #### [facility] ([id number]) [address], [address] [place] [address] Urea nitrogen [Mass/Vol] 22 mg/dL Normal 5-27 [facility] Comment on above: Performed By: #### P INR, 10593-4, 93786-8, CBCA, 83492-8, CMP, 4548-4, 6873-4 #### [facility] ([id number]) [address] [place] [address] 88167 #### HA1C #### [facility] ([id number]) [address], [address] [place] [address] CBC AND AUTO DIFFon 05-12-20 24 ABSOLUTE BASOPHIL 0.1 X10E9/L Normal 0.0-0.2 [facility] Comment on above: Performed By: #### P INR, 53053-0, 98707-4, CBCA, 06718-6, CMP, 4548-4, 6873-4 #### [facility] ([id number]) [address] [place] [address] 98687 #### HA1C #### [facility] ([id number]) [address], [address] [place] [address] ABSOLUTE NEUTROPHIL 2.2 X10E9/L Normal 1.5-6.6 [facility] Comment on above: Performed By: #### P INR, 13382-0, 59861-7, CBCA, 23604-7, CMP, 4548-4, 6873-4 #### [facility] ([id number]) [address] [place] [address] 58704 #### HA1C #### [facility] ([id number]) [address], [address] [place] [address] Basophils/100 WBC (Bld) 1.7 % Normal [facility] Comment on above: Performed By: #### P INR, 07028-4, 98290-1, CBCA, 22154-3, CMP, 4548-4, 6873-4 #### [facility] ([id number]) [address] [place] [address] 74394 #### HA1C #### [facility] ([id number]) [address] [facility], [address] [place] [address] Eosinophils (Bld) [#/Vol] 0.1 10*3/uL Normal 0.0-0.4 [facility] Comment on above: Performed By: #### P INR, 36589-8, 44717-6, CBCA, 37732-6, CMP, 4548-4, 6873-4 #### [facility] ([id number]) [address] [place] [address] 24594 #### HA1C #### [facility] ([id number]) [address], [address] [place] [address] Eosinophils/100 WBC (Bld) 3.2 % Normal [facility] Comment on above: Performed By: #### P INR, 99748-9, 18456-0, CBCA, 70130-6, CMP, 4548-4, 6873-4 #### [facility] ([id number]) [address] [place] [address] 20751 #### HA1C #### [facility] ([id number]) [address], [address] [place] [address] Erythrocyte distribution width (RBC) [Ratio] 15.2 % High 11.5-15.0 [facility] Comment on above: Performed By: #### P INR, 86401-0, 45297-7, CBCA, 45549-8, CMP, 4548-4, 6873-4 #### [facility] ([id number]) [address] [place] [address] 17286 #### HA1C #### [facility] ([id number]) [address], [address] [place] [address] Hematocrit (Bld) [Volume fraction] 33.1 % Low 39-49 [facility] Comment on above: Performed By: #### P INR, 45236-4, 50547-4, CBCA, 69611-4, CMP, 4548-4, 6873-4 #### [facility] ([id number]) [address] [place] [address] 44730 #### HA1C #### [facility] ([id number]) [address], [address] [place] [address] Hemoglobin (Bld) [Mass/Vol] 11.3 g/dL Low 13.0-17.0 [facility] Comment on above: Performed By: #### P INR, 61634-0, 41389-2, CBCA, 21370-4, CMP, 4548-4, 6873-4 #### [facility] ([id number]) [address] [place] [address] 96257 #### HA1C #### [facility] ([id number]) [address], [address] [place] [address] Lymphocytes (Bld) [#/Vol] 1.5 10*3/uL Normal 1.0-3.5 [facility] Comment on above: Performed By: #### P INR, 87325-6, 87541-8, CBCA, 85063-3, CMP, 4548-4, 6873-4 #### [facility] ([id number]) [address] [place] [address] 96594 #### HA1C #### [facility] ([id number]) [address] [facility], [address] [place] [address] Lymphocytes/100 WBC (Bld) 35.4 % Normal [facility] Comment on above: Performed By: #### P INR, 76142-2, 83738-5, CBCA, 05739-1, CMP, 4548-4, 6873-4 #### [facility] ([id number]) [address] [place], [place] [address] #### HA1C #### [facility] ([id number]) [address] [facility], [address] [place] [address] MCH (RBC) [Entitic mass] 28.9 pg Normal 27-34 [facility] Comment on above: Performed By: #### P INR, 75900-7, 03260-8, CBCA, 19263-7, CMP, 4548-4, 6873-4 #### [facility] ([id number]) [address] [place] [address] 10313 #### HA1C #### [facility] ([id number]) [address] [facility], [address] [place] [address] MCHC (RBC) [Mass/Vol] 34.2 g/dL Normal 32-36 [facility] Comment on above: Performed By: #### P INR, 74617-3, 28791-2, CBCA, 42475-4, CMP, 4548-4, 6873-4 #### [facility] ([id number]) [address] [place] [address] 14365 #### HA1C #### [facility] ([id number]) [address], [address] [place] [address] MCV (RBC) [Entitic vol] 84 fL Normal 80-100 [facility] Comment on above: Performed By: #### P INR, 01253-8, 56362-2, CBCA, 41213-9, CMP, 4548-4, 6873-4 #### [facility] ([id number]) [address] [place] [address] 83279 #### HA1C #### [facility] ([id number]) [address], [address] [place] [address] Monocytes (Bld) [#/Vol] 0.3 10*3/uL Normal 0-0.9 [facility] Comment on above: Performed By: #### P INR, 96270-8, 41974-7, CBCA, 00778-9, CMP, 4548-4, 6873-4 #### [facility] ([id number]) [address] [place] [address] 12443 #### HA1C #### [facility] ([id number]) [address], [address] [place] [address] Monocytes/100 WBC (Bld) 7.8 % Normal [facility] Comment on above: Performed By: #### P INR, 17195-0, 62995-0, CBCA, 63098-1, CMP, 4548-4, 6873-4 #### [facility] ([id number]) [address] [place] [address] 14242 #### HA1C #### [facility] ([id number]) [address], [address] [place] [address] Neutrophils/100 WBC (Bld) 51.9 % Normal [facility] Comment on above: Performed By: #### P INR, 50834-2, 33970-6, CBCA, 54111-6, CMP, 4548-4, 6873-4 #### [facility] ([id number]) [address] [place] [address] 01258 #### HA1C #### [facility] ([id number]) [address], [address] [place] [address] Platelet mean volume (Bld) [Entitic vol] 7.1 fL Normal 7-12 [facility] Comment on above: Performed By: #### P INR, 57204-7, 60934-6, CBCA, 79685-5, CMP, 4548-4, 6873-4 #### [facility] ([id number]) [address] [place] [address] #### HA1C #### [facility] ([id number]) [address], [address] [place] [address] Platelets (Bld) [#/Vol] 310 10*3/uL Normal 150-450 [facility] Comment on above: Performed By: #### P INR, 11390-3, 09005-5, CBCA, 95506-8, CMP, 4548-4, 6873-4 #### [facility] ([id number]) [address] [place] [address] #### HA1C #### [facility] ([id number]) [address], [address] [place] [address] RBC COUNT 3.93 X10E12/L Low 4.10-5.70 [facility] Comment on above: Performed By: #### P INR, 88289-5, 77740-1, CBCA, 29408-2, CMP, 4548-4, 6873-4 #### [facility] ([id number]) [address] [place] [address], [place] [address] #### HA1C #### [facility] ([id number]) [address] [facility], [address] [place] [address] WBC (Bld) [#/Vol] 4.3 10*3/uL Normal 4.0-11.0 [facility] Comment on above: Performed By: #### P INR, 77913-9, 70307-1, CBCA, 20805-9, CMP, 4548-4, 6873-4 #### [facility] ([id number]) [address] [place] [address] #### HA1C #### [facility] ([id number]) [address] [place] [address] CT [address]RA[address] CONT[address] CT BRAIN WO [...] Yuan MD on 05/12/2024 3:05 AM Normal [facility] PROTIME AND INRon 05-12-2024 INR Coag (PPP) [Relative time] 1.2 {INR} High 0.8-1.1 [facility] Comment on above: Performed By: #### P INR, 87673-8, 26545-0, CBCA, 62108-0, CMP, 4548-4, 6873-4 #### [facility] ([id number]) [address] [place] [address] #### HA1C #### [facility] ([id number]) [address], [address] [place] [address] PT Coag (PPP) [Time] 14.0 s High 9.8-13.2 [facility] Comment on above: Result Comment: NEW REFERENCE RANGE Performed By: #### P INR, 42375-9, 99365-4, CBCA, 06689-9, CMP, 4548-4, 6873-4 #### [facility] ([id number]) [address] [place] [address] #### HA1C #### [facility] ([id number]) [address], [address] [place] [address] aPTT Coag (PPP) [Time]on aPTT Coag (Bld) [Time] 30 s Normal 26-37 [facility] Comment on above: Result Comment: NEW REFERENCE RANGE Performed By: #### P INR, 45109-1, 51582-0, CBCA, 40126-1, CMP, 4548-4, 6873-4 #### [facility] ([id number]) [address] [place] [address] #### HA1C #### [facility] ([id number]) [address], [address] [place] [address] CBC AND AUTO DIFFon 04-21-20 24 ABSOLUTE BASOPHIL 0.0 X10E9/L Normal 0.0-0.2 [facility] Comment on above: Performed By: #### C BCA, CMP ####[facility] ([id number])[address], [address], [place] [address] ABSOLUTE NEUTROPHIL 2.8 X10E9/L Normal 1.5-6.6 [facility] Comment on above: Performed By: #### C ZACHARY, CMP ####[facility] ([id number])[address], [address], [place] [address] Basophils/100 WBC (Bld) 0.7 % Normal [facility] Comment on above: Performed By: #### C ZACHARY, CMP ####[facility] ([id number])[address], [address] [address] Eosinophils (Bld) [#/Vol] 0.2 10*3/uL Normal 0.0-0.4 [facility] Comment on above: Performed By: #### C ZACHARY, CMP ####[facility] ([id number])[address] [address] Eosinophils/100 WBC (Bld) 3.3 % Normal [facility] Comment on above: Performed By: #### C ZACHARY, CMP ####[facility] ([id number])[address] [address] [address] Erythrocyte distribution width (RBC) [Ratio] 16.2 % High 11.5-15.0 [facility] Comment on above: Performed By: #### C ZACHARY, CMP ####[facility] ([id number])[address] [address] [address] Hematocrit (Bld) [Volume fraction] 28.7 % Low 39-49 [facility] Comment on above: Performed By: #### C ZACHARY, CMP ####[facility] ([id number])[address] [address] [address] Hemoglobin (Bld) [Mass/Vol] 10.2 g/dL Low 13.0-17.0 [facility] Comment on above: Performed By: #### C ZACHARY, CMP ####[facility] ([id number])[address], [address] [address] Lymphocytes (Bld) [#/Vol] 1.3 10*3/uL Normal 1.0-3.5 [facility] Comment on above: Performed By: #### C ZACHARY, CMP ####[facility] ([id number])[address], [address], [place] [address] Lymphocytes/100 WBC (Bld) 28.0 % Normal [facility] Comment on above: Performed By: #### C BCA, CMP ####[facility] ([id number])[address], [address] [address] MCH (RBC) [Entitic mass] 31.7 pg Normal 27-34 [facility] Comment on above: Performed By: #### C ZACHARY, CMP ####[facility] ([id number])[address], [address] [address] MCHC (RBC) [Mass/Vol] 35.6 g/dL Normal 32-36 [facility] Comment on above: Performed By: #### C ZACHARY, CMP ####[facility] ([id number])[address], [address] [address] MCV (RBC) [Entitic vol] 89 fL Normal 80-100 [facility] Comment on above: Performed By: #### C BCA, CMP ####[facility] ([id number])[address], [address], [place] [address] Monocytes (Bld) [#/Vol] 0.5 10*3/uL Normal 0-0.9 [facility] Comment on above: Performed By: #### C BCA, CMP ####[facility] ([id number])[address], [address], [place] [address] Monocytes/100 WBC (Bld) 9.6 % Normal [facility] Comment on above: Performed By: #### C BCA, CMP ####[facility] ([id number])[address], [place] [address] Neutrophils/100 WBC (Bld) 58.4 % Normal [facility] Comment on above: Performed By: #### C BCA, CMP ####[facility] ([id number])[address] [address], [place] [address] Platelet mean volume (Bld) [Entitic vol] 7.3 fL Normal 7-12 [facility] Comment on above: Performed By: #### C BCA, CMP ####[facility] ([id number])[address] [address], [place] [address] Platelets (Bld) [#/Vol] 249 10*3/uL Normal 150-450 [facility] Comment on above: Performed By: #### C BCA, CMP ####[facility] ([id number])[address] [address], [place] [address] RBC COUNT 3.23 X10E12/L Low 4.10-5.70 [facility] Comment on above: Performed By: #### C BCA, CMP ####[facility] ([id number])[address] [address] WBC (Bld) [#/Vol] 4.8 10*3/uL Normal 4.0-11.0 [facility] Comment on above: Performed By: #### C BCA, CMP ####[facility] ([id number])[address] [address], [place] [address] COMPREHENSIVE METABOLIC PANE [place] 04-21-2024 Albumin [Mass/Vol] 3.6 g/dL Normal 3.2-5.3 [facility] Comment on above: Performed By: #### C BCA, CMP ####[facility] ([id number])[address] [address], [place] [address] ALP [Catalytic activity/Vol] 78 U/L Normal 39-130 [facility] Comment on above: Performed By: #### C BCA, CMP ####[facility] ([id number])[address], [place] [address] ALT [Catalytic activity/Vol] 27 U/L Normal 0-40 [facility] Comment on above: Performed By: #### C BCA, CMP ####[facility] ([id number])[address], [place] [address] Anion gap [Moles/Vol] 9 mmol/L Normal 5-15 [facility] Comment on above: Performed By: #### C BCA, CMP ####[facility] ([id number])[address], [place] [address] AST [Catalytic activity/Vol] 13 U/L Normal 0-41 [facility] Comment on above: Performed By: #### C BCA, CMP ####[facility] ([id number])[address], [place] [address] Bilirubin [Mass/Vol] 0.4 mg/dL Normal 0.3-1.2 [facility] Comment on above: Performed By: #### C BCA, CMP ####[facility] ([id number])[address], [place] [address] Calcium [Mass/Vol] 8.8 mg/dL Normal 8.5-10.5 [facility] Comment on above: Performed By: #### C BCA, CMP ####[facility] ([id number])[address], [address], [place] [address] Chloride [Moles/Vol] 100 mmol/L Normal 98-109 [facility] Comment on above: Performed By: #### C BCA, CMP ####[facility] ([id number])[address], [address], [place] [address] CO2 [Moles/Vol] 28 mmol/L Normal 22-32 [facility] Comment on above: Performed By: #### C BCA, CMP ####[facility] ([id number])[address] [address] Creatinine [Mass/Vol] 0.70 mg/dL Normal 0.60-1.30 [facility] Comment on above: Result Comment: METH OD TRACEABLE TO IDMS STANDARD Performed By: #### C BCA, CMP ####[facility] ([id number])[address] [address] eGFR (CKD-EPI) NON-RACE DEPENDENT >90 Normal >59 [facility] Comment on above: Result Comment: Reported eGFR is based on the CKD-EPI 2020 equation that does not use a race coefficient. Performed By: #### C BCA, CMP ####[facility] ([id number])[address] [address] Glucose [Mass/Vol] 159 mg/dL High 65-99 [facility] Comment on above: Performed By: #### C BCA, CMP ####[facility] ([id number])[address] [address] Potassium [Moles/Vol] 4.2 mmol/L Normal 3.5-5.0 [facility] Comment on above: Performed By: #### C BCA, CMP ####[facility] ([id number])[address] [address] Protein [Mass/Vol] 5.6 g/dL Low 6.0-8.0 [facility] Comment on above: Performed By: #### C BCA, CMP ####[facility] ([id number])[address] [address] Sodium [Moles/Vol] 137 mmol/L Normal 134-146 [facility] Comment on above: Performed By: #### C BCA, CMP ####[facility] ([id number])[address], [address], [place] [address] Urea nitrogen [Mass/Vol] 17 mg/dL Normal 5-27 [facility] Comment on above: Performed By: #### Thais SHARMA, CMP ####[facility] ([id number])[address], [address], [place] [address] Glucose Glucometer (BldC) [M ass/Vol]on 04-21-2024 Glucose [Mass/Vol] 234 mg/dL High 65-99 [facility] Glucose [Mass/Vol] 143 mg/dL High 65-99 [facility] CBC AND AUTO DIFFon 04-20-20 ABSOLUTE BASOPHIL 0.1 X10E9/L Normal 0.0-0.2 [facility] Comment on above: Performed By: #### C ZACHARY CMP, 68915-9 #### [facility] ([id number]) [address], [address] [place] [address] ABSOLUTE NEUTROPHIL 2.9 X10E9/L Normal 1.5-6.6 [facility] Comment on above: Performed By: #### Thais SHARMA, CMP, 79828-9 #### [facility] ([id number]) [address], [address] [place] [address] Basophils/100 WBC (Bld) 1.1 % Normal [facility] Comment on above: Performed By: #### Thais SHARAM, CMP, 35907-2 #### [facility] ([id number]) [address], [address] [place] [address] Eosinophils (Bld) [#/Vol] 0.1 10*3/uL Normal 0.0-0.4 [facility] Comment on above: Performed By: #### Thais SHARMA, CMP, 95606-1 #### [facility] ([id number]) [address], [address] [place] [address] Eosinophils/100 WBC (Bld) 2.7 % Normal [facility] Comment on above: Performed By: #### Thais SHARMA CMP, 28591-1 #### [facility] ([id number]) [address], [address] [place] [address] Erythrocyte distribution width (RBC) [Ratio] 15.8 % High 11.5-15.0 [facility] Comment on above: Performed By: #### Thais SHARMA CMP, 27017-9 #### [facility] ([id number]) [address] [place] [address] Hematocrit (Bld) [Volume fraction] 30.3 % Low 39-49 [facility] Comment on above: Performed By: #### Thais SHARMA CMP, 11631-1 #### [facility] ([id number]) [address] [place] [address] Hemoglobin (Bld) [Mass/Vol] 10.5 g/dL Low 13.0-17.0 [facility] Comment on above: Performed By: #### Thais SHARMA CMP, 99292-2 #### [facility] ([id number]) [address], [address] [place] [address] Lymphocytes (Bld) [#/Vol] 1.2 10*3/uL Normal 1.0-3.5 [facility] Comment on above: Performed By: #### Thais SHARMA CMP, 62941-2 #### [facility] ([id number]) [address], [address] [place] [address] Lymphocytes/100 WBC (Bld) 25.4 % Normal [facility] Comment on above: Performed By: #### Thais SHARMA CMP, 21905-8 #### [facility] ([id number]) [address], [address] [place] [address] MCH (RBC) [Entitic mass] 30.5 pg Normal 27-34 [facility] Comment on above: Performed By: #### C BCA, CMP, 08040-4 #### [facility] ([id number]) [address], [address] [place] [address] MCHC (RBC) [Mass/Vol] 34.5 g/dL Normal 32-36 [facility] Comment on above: Performed By: #### C BCA, CMP, 71689-3 #### [facility] ([id number]) [address], [address] [place] [address] MCV (RBC) [Entitic vol] 88 fL Normal 80-100 [facility] Comment on above: Performed By: #### C BCA, CMP, 01914-4 #### [facility] ([id number]) [address], [address] [place] [address] Monocytes (Bld) [#/Vol] 0.4 10*3/uL Normal 0-0.9 [facility] Comment on above: Performed By: #### C BCA, CMP, 91249-5 #### [facility] ([id number]) [address] [place] [address] Monocytes/100 WBC (Bld) 9.3 % Normal [facility] Comment on above: Performed By: #### C BCA, CMP, 55650-6 #### [facility] ([id number]) [address] [place] [address] Neutrophils/100 WBC (Bld) 61.5 % Normal [facility] Comment on above: Performed By: #### C BCA, CMP, 96620-1 #### [facility] ([id number]) [address], [address] [place] [address] Platelet mean volume (Bld) [Entitic vol] 7.1 fL Normal 7-12 [facility] Comment on above: Performed By: #### C BCA, CMP, 28708-7 #### [facility] ([id number]) [address], [address] [place] [address] Platelets (Bld) [#/Vol] 291 10*3/uL Normal 150-450 [facility] Comment on above: Performed By: #### C BCA, CMP, 27574-5 #### [facility] ([id number]) [address], [address] [place] [address] RBC COUNT 3.43 X10E12/L Low 4.10-5.70 [facility] Comment on above: Performed By: #### C BCA, CMP, 96340-5 #### [facility] ([id number]) [address], [address] [place] [address] WBC (Bld) [#/Vol] 4.7 10*3/uL Normal 4.0-11.0 [facility] Comment on above: Performed By: #### C BCA, CMP, 52451-0 #### [facility] ([id number]) [address], [address] [place] [address] COMPREHENSIVE METABOLIC PANE [place] 04-20-2024 Albumin [Mass/Vol] 3.9 g/dL Normal 3.2-5.3 [facility] Comment on above: Performed By: #### C BCA, CMP, 05615-8 #### [facility] ([id number]) [address], [address] [place] [address] ALP [Catalytic activity/Vol] 94 U/L Normal 39-130 [facility] Comment on above: Performed By: #### C BCA, CMP, 27121-6 #### [facility] ([id number]) [address], [address] [place] [address] ALT [Catalytic activity/Vol] 41 U/L High 0-40 [facility] Comment on above: Performed By: #### C BCA, CMP, 71597-7 #### [facility] ([id number]) [address], [address] [place] [address] Anion gap [Moles/Vol] 9 mmol/L Normal 5-15 [facility] Comment on above: Performed By: #### C BCA, CMP, 28596-8 #### [facility] ([id number]) [address] [place] [address] AST [Catalytic activity/Vol] 22 U/L Normal 0-41 [facility] Comment on above: Performed By: #### C BCA, CMP, 09897-8 #### [facility] ([id number]) [address], [address] [place] [address] Bilirubin [Mass/Vol] 0.6 mg/dL Normal 0.3-1.2 [facility] Comment on above: Performed By: #### C BCA, CMP, 24605-4 #### [facility] ([id number]) [address], [address] [place] [address] Calcium [Mass/Vol] 9.1 mg/dL Normal 8.5-10.5 [facility] Comment on above: Performed By: #### C BCA, CMP, 70476-3 #### [facility] ([id number]) [address], [address] [place] [address] Chloride [Moles/Vol] 98 mmol/L Normal 98-109 [facility] Comment on above: Performed By: #### C BCA, CMP, 46612-3 #### [facility] ([id number]) [address], [address] [place] [address] CO2 [Moles/Vol] 30 mmol/L Normal 22-32 [facility] Comment on above: Performed By: #### C BCA, CMP, 62557-0 #### [facility] ([id number]) [address], [address] [place] [address] Creatinine [Mass/Vol] 0.69 mg/dL Normal 0.60-1.30 [facility] Comment on above: Result Comment: METH OD TRACEABLE TO IDMS STANDARD Performed By: #### C ZACHARY CMP, 07167-0 #### [facility] ([id number]) [address], [address] [place] [address] eGFR (CKD-EPI) NON-RACE DEPENDENT >90 Normal >59 [facility] Comment on above: Result Comment: Reported eGFR is based on the CKD-EPI 2020 equation that does not use a race coefficient. Performed By: #### C ZACHARY, CMP, 98492-5 #### [facility] ([id number]) [address], [facility] [address] [place] [address] Glucose [Mass/Vol] 204 mg/dL High 65-99 [facility] Comment on above: Performed By: #### C ZACHARY, CMP, 61342-3 #### [facility] ([id number]) [address], [address] [place] [address] Potassium [Moles/Vol] 4.3 mmol/L Normal 3.5-5.0 [facility] Comment on above: Performed By: #### C ZACHARY, CMP, 12371-1 #### [facility] ([id number]) [address], [address] [place] [address] Protein [Mass/Vol] 6.2 g/dL Normal 6.0-8.0 [facility] Comment on above: Performed By: #### C BCA, CMP, 36063-8 #### [facility] ([id number]) [address], [address] [place] [address] Sodium [Moles/Vol] 137 mmol/L Normal 134-146 [facility] Comment on above: Performed By: #### C BCA, CMP, 63295-6 #### [facility] ([id number]) [address], [address] [place] [address] Urea nitrogen [Mass/Vol] 11 mg/dL Normal 5-27 [facility] Comment on above: Performed By: #### Thais SHARMA, CMP, 29728-2 #### [facility] ([id number]) [address] [place] [address] Glucose Glucometer (BldC) [M ass/Vol]on 04-20-2024 Glucose [Mass/Vol] 287 mg/dL High 65-99 [facility] Glucose [Mass/Vol] 263 mg/dL High 65-99 [facility] Glucose [Mass/Vol] 231 mg/dL High 65-99 [facility] Glucose [Mass/Vol] 176 mg/dL High 65-99 [facility] CBC AND AUTO DIFFon 04-19-20 ABSOLUTE BASOPHIL 0.0 X10E9/L Normal 0.0-0.2 [facility] Comment on above: Performed By: #### Thais SHARMA, CMP, 82746-0 #### [facility] ([id number]) [address] [place] [address] ABSOLUTE NEUTROPHIL 2.1 X10E9/L Normal 1.5-6.6 [facility] Comment on above: Performed By: #### Thais SHARMA, CMP, 73101-8 #### [facility] ([id number]) [address], [address] [place] [address] Basophils/100 WBC (Bld) 1.2 % Normal [facility] Comment on above: Performed By: #### Thais SHARMA, CMP, 44901-8 #### [facility] ([id number]) [address], [address] [place] [address] Eosinophils (Bld) [#/Vol] 0.1 10*3/uL Normal 0.0-0.4 [facility] Comment on above: Performed By: #### Thais SHARMA, CMP, 63934-7 #### [facility] ([id number]) [address], [address] [place] [address] Eosinophils/100 WBC (Bld) 3.6 % Normal [facility] Comment on above: Performed By: #### Thais SHARMA CMP, 36912-3 #### [facility] ([id number]) [address], [address] [place] [address] Erythrocyte distribution width (RBC) [Ratio] 15.5 % High 11.5-15.0 [facility] Comment on above: Performed By: #### Thais SHARMA CMP, 11599-0 #### [facility] ([id number]) [address], [facility] [address] [place] [address] Hematocrit (Bld) [Volume fraction] 29.4 % Low 39-49 [facility] Comment on above: Performed By: #### Thais SHARMA CMP, 33144-1 #### [facility] ([id number]) [address], [address] [place] [address] Hemoglobin (Bld) [Mass/Vol] 10.1 g/dL Low 13.0-17.0 [facility] Comment on above: Performed By: #### Thais SHARMA CMP, 68655-1 #### [facility] ([id number]) [address], [address] [place] [address] Lymphocytes (Bld) [#/Vol] 1.0 10*3/uL Normal 1.0-3.5 [facility] Comment on above: Performed By: #### Thais SHARMA CMP, 84752-6 #### [facility] ([id number]) [address], [address] [place] [address] Lymphocytes/100 WBC (Bld) 28.5 % Normal [facility] Comment on above: Performed By: #### Thais SHARMA CMP, 89945-1 #### [facility] ([id number]) [address], [address] [place] [address] MCH (RBC) [Entitic mass] 30.8 pg Normal 27-34 [facility] Comment on above: Performed By: #### C BCA, CMP, 67059-2 #### [facility] ([id number]) [address], [address] [place] [address] MCHC (RBC) [Mass/Vol] 34.4 g/dL Normal 32-36 [facility] Comment on above: Performed By: #### C BCA, CMP, 64915-4 #### [facility] ([id number]) [address] [place] [address] MCV (RBC) [Entitic vol] 89 fL Normal 80-100 [facility] Comment on above: Performed By: #### Thais BCA, CMP, 87045-4 #### [facility] ([id number]) [address], [address] [place] [address] Monocytes (Bld) [#/Vol] 0.3 10*3/uL Normal 0-0.9 [facility] Comment on above: Performed By: #### Thais BCA, CMP, 43874-9 #### [facility] ([id number]) [address] [place] [address] Monocytes/100 WBC (Bld) 8.3 % Normal [facility] Comment on above: Performed By: #### Thais BCA, CMP, 07096-7 #### [facility] ([id number]) [address] [place] [address] Neutrophils/100 WBC (Bld) 58.4 % Normal [facility] Comment on above: Performed By: #### C BCA, CMP, 16462-3 #### [facility] ([id number]) [address] [place] [address] Platelet mean volume (Bld) [Entitic vol] 7.1 fL Normal 7-12 [facility] Comment on above: Performed By: #### C BCA, CMP, 84286-4 #### [facility] ([id number]) [address], [address] [place] [address] Platelets (Bld) [#/Vol] 264 10*3/uL Normal 150-450 [facility] Comment on above: Performed By: #### C BCA, CMP, 53904-1 #### [facility] ([id number]) [address], [address] [place] [address] RBC COUNT 3.29 X10E12/L Low 4.10-5.70 [facility] Comment on above: Performed By: #### C BCA, CMP, 33088-1 #### [facility] ([id number]) [address], [address] [place] [address] WBC (Bld) [#/Vol] 3.6 10*3/uL Low 4.0-11.0 [facility] Comment on above: Performed By: #### C BCA, CMP, 03303-6 #### [facility] ([id number]) [address], [address] [place] [address] COMPREHENSIVE METABOLIC PANE [place] 04-19-2024 Albumin [Mass/Vol] 3.8 g/dL Normal 3.2-5.3 [facility] Comment on above: Performed By: #### C BCA, CMP, 58476-4 #### [facility] ([id number]) [address] [place] [address] ALP [Catalytic activity/Vol] 91 U/L Normal 39-130 [facility] Comment on above: Performed By: #### C BCA, CMP, 94510-6 #### [facility] ([id number]) [address], [address] [place] [address] ALT [Catalytic activity/Vol] 40 U/L Normal 0-40 [facility] Comment on above: Performed By: #### C BCA, CMP, 24916-0 #### [facility] ([id number]) [address] [place] [address] Anion gap [Moles/Vol] 10 mmol/L Normal 5-15 [facility] Comment on above: Performed By: #### C BCA, CMP, 18305-5 #### [facility] ([id number]) [address] [place] [address] AST [Catalytic activity/Vol] 24 U/L Normal 0-41 [facility] Comment on above: Performed By: #### C BCA, CMP, 90035-3 #### [facility] ([id number]) [address], [address] [place] [address] Bilirubin [Mass/Vol] 0.7 mg/dL Normal 0.3-1.2 [facility] Comment on above: Performed By: #### C BCA, CMP, 41402-7 #### [facility] ([id number]) [address], [address] [place] [address] Calcium [Mass/Vol] 9.0 mg/dL Normal 8.5-10.5 [facility] Comment on above: Performed By: #### C BCA, CMP, 47275-1 #### [facility] ([id number]) [address], [address] [place] [address] Chloride [Moles/Vol] 100 mmol/L Normal 98-109 [facility] Comment on above: Performed By: #### C BCA, CMP, 29920-2 #### [facility] ([id number]) [address], [address] [place] [address] CO2 [Moles/Vol] 27 mmol/L Normal 22-32 [facility] Comment on above: Performed By: #### C BCA, CMP, 53593-6 #### [facility] ([id number]) [address], [address] [place] [address] Creatinine [Mass/Vol] 0.62 mg/dL Normal 0.60-1.30 [facility] Comment on above: Result Comment: METH OD TRACEABLE TO IDMS STANDARD Performed By: #### C NAHOMY SHARMA, 35729-5 #### [facility] ([id number]) [address], [address] [place] [address] eGFR (CKD-EPI) NON-RACE DEPENDENT >90 Normal >59 [facility] Comment on above: Result Comment: Reported eGFR is based on the CKD-EPI 2020 equation that does not use a race coefficient. Performed By: #### C ZACHARY CMP, 35862-3 #### [facility] ([id number]) [address], [address] [place] [address] Glucose [Mass/Vol] 124 mg/dL High 65-99 [facility] Comment on above: Performed By: #### C ZACHARY CMP, 35398-8 #### [facility] ([id number]) [address], [address] [place] [address] Potassium [Moles/Vol] 3.8 mmol/L Normal 3.5-5.0 [facility] Comment on above: Performed By: #### C ZACHARY, CMP, 30928-6 #### [facility] ([id number]) [address], [address] [place] [address] Protein [Mass/Vol] 6.0 g/dL Normal 6.0-8.0 [facility] Comment on above: Performed By: #### C BCA, CMP, 33774-6 #### [facility] ([id number]) [address], [address] [place] [address] Sodium [Moles/Vol] 137 mmol/L Normal 134-146 [facility] Comment on above: Performed By: #### C BCA, CMP, 59514-9 #### [facility] ([id number]) [address], [address] [place] [address] Urea nitrogen [Mass/Vol] 7 mg/dL Normal 5-27 [facility] Comment on above: Performed By: #### C BCA, CMP, 02156-9 #### [facility] ([id number]) [address], [address] [place] [address] Folate [Mass/Vol]on 04-19-20 24 FOLIC ACID 8.1 ng/mL Normal >5.8 [facility] Comment on above: Result Comment: NEW REFERENCE RANGE Performed By: #### C BCA, CMP, 23320-3 #### [facility] ([id number]) [address] [facility] [place] [address] Glucose Glucometer (BldC) [M ass/Vol]on 04-19-2024 Glucose [Mass/Vol] 142 mg/dL High 65-99 [facility] Glucose [Mass/Vol] 129 mg/dL High 65-99 [facility] Glucose [Mass/Vol] 119 mg/dL High 65-99 [facility] Glucose [Mass/Vol] 132 mg/dL High 65-99 [facility] HGB AND HCTon 04-19-2024 Hematocrit (Bld) [Volume fraction] 32.0 % Low 39-49 [facility] Comment on above: Performed By: #### C BCA, CMP, 64634-6 #### [facility] ([id number]) [address] [facility] [facility] [place] [address] Hemoglobin (Bld) [Mass/Vol] 11.1 g/dL Low 13.0-17.0 [facility] Comment on above: Performed By: #### C BCA, CMP, 76894-5 #### [facility] ([id number]) [address], [address] [place] [address] Surgical Pathologyon 024 Surgical Pathology Normal [facility] Comment on above: Result Comment: [facility] [address] [place] [address] Surgical Pathology Consultation Patient Name:VASHTI MASSEY:1955 (Age: 68)Gender:MTaken:04/19/2024eported:04/22/2024hysician(s):Ray Craft MD ( )Copy To: Rec. #:[id number]: #[id number] Final Pathologic Diagnosis 1. Transverse colon polyp: Tubular adenoma. 2. Transverse colon polyp #2; EMR: Tubular adenoma fragments. Report Electronically Signed Out st/04/22/2024Bee Ontiveros MD Interpretation performed at [facility], [address] [place], [address], License number: [id number]. Clinical History Iron deficiency anemia, unspecified iron deficiency anemia type. Gross Description 1. Received in formalin labeled BRYSON, transverse colon polyp are eight pale black feathery soft tissue bits admixed with friable vegetative material, 0.1-0.6 cm. The specimen is filtered and entirely submitted in a single cassette. (1, ns, [id number],[id number]) DM. 2. Received in formalin labeled BRYSON, transverse colon polyp #2 is a pale-black polyp, 1.1 x 0.8 x 0.5 cm. The resection margin is inked black. The specimen is serially sectioned and entirely submitted in cassette A. Also received in the container are eight pale-black feathery soft tissue fragments, 0.1-0.6 cm. These are submitted in cassette B. (2, ns, [id number],m8) DM. dm/04/20/2024NSK Specimen(s) Received 1: Transverse colon polyp 2: Transverse colon polyp #2; EMR Fee Codes(s): 1; 73532 2; 13726 THYROID PROFILEon 04-19-2024 Free T4 [Mass/Vol] 1.13 ng/dL Normal 0.61-1.60 [facility] Comment on above: Performed By: #### C BCA, [facility], 50570-5 #### [facility] ([id number]) [address], [address] [place] [address] TSH 5.50 uIU/mL High 0.49-4.67 [facility] Comment on above: Performed By: #### C NAHOMY SHARMA, 10013-5 #### [facility] ([id number]) [address] [facility] [place] [address] Thiamine (Bld) [Mass/Vol]on 04-19-2024 THIAMIN VITAMIN B1 See Below Normal [facility] Comment on above: Result Comment: NOTE [...] developed and its performance characteristics determined by [facility] [place] ([facility]). It has not been cleared or approved by the FDA. [facility] is regulated under CLIA as qualified to perform high-complexity testing. This test is used for clinical purposes. It should not be regarded as investigational or for research. Test Performed By: [facility] [employer] [address] [place] [address] Cube Machine Tender: Bijan Murphy III, M.D. CLIA #[id number] Performed By: #### Thais SHARMA CMP, 50217-3 #### [facility] ([id number]) [address] [facility] [place] [address] VITAMIN B12on 04-19-2024 Cobalamin (Vitamin B12) [Mass/Vol] pg/mL High 180-914 [facility] Comment on above: Performed By: #### Thais SHARMA CMP, 47136-8 #### [facility] ([id number]) [address], [address] [place] [address] CBC AND AUTO DIFFon 04-18-20 24 ABSOLUTE BASOPHIL 0.0 X10E9/L Normal 0.0-0.2 [facility] Comment on above: Performed By: #### C BCA, CMP, 01219-2 #### [facility] ([id number]) [address], [address] [place] [address] ABSOLUTE NEUTROPHIL 2.5 X10E9/L Normal 1.5-6.6 [facility] Comment on above: Performed By: #### C BCA, CMP, 88804-4 #### [facility] ([id number]) [address], [address] [place] [address] Basophils/100 WBC (Bld) 0.9 % Normal [facility] Comment on above: Performed By: #### C BCA, CMP, 52577-3 #### [facility] ([id number]) [address], [address] [place] [address] Eosinophils (Bld) [#/Vol] 0.1 10*3/uL Normal 0.0-0.4 [facility] Comment on above: Performed By: #### C BCA, CMP, 80880-8 #### [facility] ([id number]) [address], [address] [place] [address] Eosinophils/100 WBC (Bld) 2.4 % Normal [facility] Comment on above: Performed By: #### C BCA, CMP, 43920-3 #### [facility] ([id number]) [address], [address] [place] [address] Erythrocyte distribution width (RBC) [Ratio] 15.9 % High 11.5-15.0 [facility] Comment on above: Performed By: #### C BCA, CMP, 46340-9 #### [facility] ([id number]) [address], [address] [place] [address] Hematocrit (Bld) [Volume fraction] 27.5 % Low 39-49 [facility] Comment on above: Performed By: #### C BCA, CMP, 47713-3 #### [facility] ([id number]) [address], [address] [place] [address] Hemoglobin (Bld) [Mass/Vol] 9.6 g/dL Low 13.0-17.0 [facility] Comment on above: Performed By: #### C BCA, CMP, 48840-6 #### [facility] ([id number]) [address], [facility] [address] [place] [address] Lymphocytes (Bld) [#/Vol] 0.8 10*3/uL Low 1.0-3.5 [facility] Comment on above: Performed By: #### C BCA, CMP, 77465-2 #### [facility] ([id number]) [address], [facility] [address] [place] [address] Lymphocytes/100 WBC (Bld) 22.0 % Normal [facility] Comment on above: Performed By: #### C BCA, CMP, 40581-4 #### [facility] ([id number]) [address], [address] [place] [address] MCH (RBC) [Entitic mass] 31.2 pg Normal 27-34 [facility] Comment on above: Performed By: #### C BCA, CMP, 53491-5 #### [facility] ([id number]) [address], [address] [place] [address] MCHC (RBC) [Mass/Vol] 34.8 g/dL Normal 32-36 [facility] Comment on above: Performed By: #### C BCA, CMP, 26427-6 #### [facility] ([id number]) [address], [address] [place] [address] MCV (RBC) [Entitic vol] 90 fL Normal 80-100 [facility] Comment on above: Performed By: #### Thais SHARMA, CMP, 41142-3 #### [facility] ([id number]) [address], [address] [place] [address] Monocytes (Bld) [#/Vol] 0.2 10*3/uL Normal 0-0.9 [facility] Comment on above: Performed By: #### Thais SHARMA, CMP, 24941-9 #### [facility] ([id number]) [address], [address] [place] [address] Monocytes/100 WBC (Bld) 6.4 % Normal [facility] Comment on above: Performed By: #### Thais SHARMA, CMP, 19692-0 #### [facility] ([id number]) [address], [address] [place] [address] Neutrophils/100 WBC (Bld) 68.3 % Normal [facility] Comment on above: Performed By: #### Thais SHARMA, CMP, 01186-6 #### [facility] ([id number]) [address], [address] [place] [address] Platelet mean volume (Bld) [Entitic vol] 6.9 fL Low 7-12 [facility] Comment on above: Performed By: #### Thais SHARMA, CMP, 51057-9 #### [facility] ([id number]) [address], [address] [place] [address] Platelets (Bld) [#/Vol] 251 10*3/uL Normal 150-450 [facility] Comment on above: Performed By: #### Thais BCA, CMP, 30666-5 #### [facility] ([id number]) [address], [address] [place] [address] RBC COUNT 3.07 X10E12/L Low 4.10-5.70 [facility] Comment on above: Performed By: #### C BCA, CMP, 14364-2 #### [facility] ([id number]) [address], [address] [place] [address] WBC (Bld) [#/Vol] 3.6 10*3/uL Low 4.0-11.0 [facility] Comment on above: Performed By: #### C BCA, CMP, 41234-1 #### [facility] ([id number]) [address], [address] [place] [address] COMPREHENSIVE METABOLIC PANE [place]onte 04-18-2024 Albumin [Mass/Vol] 3.6 g/dL Normal 3.2-5.3 [facility] Comment on above: Performed By: #### C BCA, CMP, 60086-3 #### [facility] ([id number]) [address], [address] [place] [address] ALP [Catalytic activity/Vol] 85 U/L Normal 39-130 [facility] Comment on above: Performed By: #### C BCA, CMP, 91196-4 #### [facility] ([id number]) [address], [address] [place] [address] ALT [Catalytic activity/Vol] 41 U/L High 0-40 [facility] Comment on above: Performed By: #### C BCA, CMP, 96127-4 #### [facility] ([id number]) [address], [address] [place] [address] Anion gap [Moles/Vol] 11 mmol/L Normal 5-15 [facility] Comment on above: Performed By: #### C BCA, CMP, 87634-2 #### [facility] ([id number]) [address], [address] [place] [address] AST [Catalytic activity/Vol] 26 U/L Normal 0-41 [facility] Comment on above: Performed By: #### C BCA, CMP, 71848-4 #### [facility] ([id number]) [address] [address] [place] [address] Bilirubin [Mass/Vol] 0.7 mg/dL Normal 0.3-1.2 [facility] Comment on above: Performed By: #### C BCA, CMP, 27729-6 #### [facility] ([id number]) [address] [address] [place] [address] Calcium [Mass/Vol] 8.6 mg/dL Normal 8.5-10.5 [facility] Comment on above: Performed By: #### C BCA, CMP, 37904-4 #### [facility] ([id number]) [address] [address] [place] [address] Chloride [Moles/Vol] 100 mmol/L Normal 98-109 [facility] Comment on above: Performed By: #### C BCA, CMP, 68285-6 #### [facility] ([id number]) [address] [address] [place] [address] CO2 [Moles/Vol] 25 mmol/L Normal 22-32 [facility] Comment on above: Performed By: #### C BCA, CMP, 87015-5 #### [facility] ([id number]) [address] [address] [place] [address] Creatinine [Mass/Vol] 0.59 mg/dL Low 0.60-1.30 [facility] Comment on above: Result Comment: METH OD TRACEABLE TO IDMS STANDARD Performed By: #### C BCA, CMP, 56190-6 #### [facility] ([id number]) [address] [address] [place] [address] eGFR (CKD-EPI) NON-RACE DEPENDENT >90 Normal >59 [facility] Comment on above: Result Comment: Reported eGFR is based on the CKD-EPI 2021 equation that does not use a race coefficient. Performed By: #### C BCA, CMP, 34637-0 #### [facility] ([id number]) [address], [address] [place] [address] Glucose [Mass/Vol] 104 mg/dL High 65-99 [facility] Comment on above: Performed By: #### C BCA, CMP, 49995-2 #### [facility] ([id number]) [address], [address] [place] [address] Potassium [Moles/Vol] 3.7 mmol/L Normal 3.5-5.0 [facility] Comment on above: Performed By: #### C BCA, CMP, 74675-0 #### [facility] ([id number]) [address], [address] [place] [address] Protein [Mass/Vol] 5.7 g/dL Low 6.0-8.0 [facility] Comment on above: Performed By: #### C BCA, CMP, 13036-5 #### [facility] ([id number]) [address], [address] [place] [address] Sodium [Moles/Vol] 136 mmol/L Normal 134-146 [facility] Comment on above: Performed By: #### C BCA, CMP, 28739-1 #### [facility] ([id number]) [address], [address] [place] [address] Urea nitrogen [Mass/Vol] 12 mg/dL Normal 5-27 [facility] Comment on above: Performed By: #### C BCA, CMP, 71310-0 #### [facility] ([id number]) [address], [address] [place] [address] Glucose Glucometer (BldC) [M ass/Vol]on 04-18-2024 Glucose [Mass/Vol] 135 mg/dL High 65-99 [facility] Glucose [Mass/Vol] 168 mg/dL High 65-99 [facility] Glucose [Mass/Vol] 169 mg/dL High 65-99 [facility] HGB AND HCTon 04-18-2024 Hematocrit (Bld) [Volume fraction] 27.9 % Low 39-49 [facility] Comment on above: Performed By: #### C ZACHARY CMP, 77818-9 #### [facility] ([id number]) [address], [address] [place] [address] Hemoglobin (Bld) [Mass/Vol] 9.6 g/dL Low 13.0-17.0 [facility] Comment on above: Performed By: #### Thais SHARMA, CMP, 98291-2 #### [facility] ([id number]) [address], [address] [place] [address] POTASSIUMon 04-18-2024 Potassium [Moles/Vol] 4.4 mmol/L Normal 3.5-5.0 [facility] Comment on above: Performed By: #### Thais SHARMA, CMP, 10179-1 #### [facility] ([id number]) [address], [address] [place] [address] CBC AND AUTO DIFFon 04-17-20 24 ABSOLUTE BASOPHIL 0.0 X10E9/L Normal 0.0-0.2 [facility] Comment on above: Performed By: #### Thais SHARMA CMP, 34231-3 #### [facility] ([id number]) [address], [address] [place] [address] ABSOLUTE NEUTROPHIL 2.5 X10E9/L Normal 1.5-6.6 [facility] Comment on above: Performed By: #### Thais SHARMA, CMP, 55340-2 #### [facility] ([id number]) [address], [address] [place] [address] Basophils/100 WBC (Bld) 1.0 % Normal [facility] Comment on above: Performed By: #### Thais SHARMA, CMP, 53066-9 #### [facility] ([id number]) [address] [address] [place] [address] Eosinophils (Bld) [#/Vol] 0.2 10*3/uL Normal 0.0-0.4 [facility] Comment on above: Performed By: #### C BCA, CMP, 42094-3 #### [facility] ([id number]) [address], [facility] [address] [place] [address] Eosinophils/100 WBC (Bld) 4.1 % Normal [facility] Comment on above: Performed By: #### C ZACHARY, CMP, 85809-3 #### [facility] ([id number]) [address], [facility] [address] [place] [address] Erythrocyte distribution width (RBC) [Ratio] 16.0 % High 11.5-15.0 [facility] Comment on above: Performed By: #### C ZACHARY, CMP, 96595-7 #### [facility] ([id number]) [address] [address] [place] [address] Hematocrit (Bld) [Volume fraction] 27.8 % Low 39-49 [facility] Comment on above: Performed By: #### C ZACHARY, CMP, 05215-1 #### [facility] ([id number]) [address] [address] [place] [address] Hemoglobin (Bld) [Mass/Vol] 9.7 g/dL Low 13.0-17.0 [facility] Comment on above: Performed By: #### C ZACHARY, CMP, 09318-9 #### [facility] ([id number]) [address] [address] [place] [address] Lymphocytes (Bld) [#/Vol] 1.0 10*3/uL Normal 1.0-3.5 [facility] Comment on above: Performed By: #### C BCA, CMP, 23103-7 #### [facility] ([id number]) [address], [address] [place] [address] Lymphocytes/100 WBC (Bld) 24.3 % Normal [facility] Comment on above: Performed By: #### C BCA, CMP, 95367-8 #### [facility] ([id number]) [address], [address] [place] [address] MCH (RBC) [Entitic mass] 31.1 pg Normal 27-34 [facility] Comment on above: Performed By: #### C BCA, CMP, 29382-1 #### [facility] ([id number]) [address], [address] [place] [address] MCHC (RBC) [Mass/Vol] 35.0 g/dL Normal 32-36 [facility] Comment on above: Performed By: #### Thais BCA, CMP, 47078-1 #### [facility] ([id number]) [address], [address] [place] [address] MCV (RBC) [Entitic vol] 89 fL Normal 80-100 [facility] Comment on above: Performed By: #### Thais BCA, CMP, 17706-4 #### [facility] ([id number]) [address], [address] [place] [address] Monocytes (Bld) [#/Vol] 0.3 10*3/uL Normal 0-0.9 [facility] Comment on above: Performed By: #### C BCA, CMP, 39650-5 #### [facility] ([id number]) [address], [address] [place] [address] Monocytes/100 WBC (Bld) 8.3 % Normal [facility] Comment on above: Performed By: #### Thais BCA, CMP, 69572-8 #### [facility] ([id number]) [address], [address] [place] [address] Neutrophils/100 WBC (Bld) 62.3 % Normal [facility] Comment on above: Performed By: #### C BCA, CMP, 33034-9 #### [facility] ([id number]) [address], [address] [place] [address] Platelet mean volume (Bld) [Entitic vol] 6.9 fL Low 7-12 [facility] Comment on above: Performed By: #### C BCA, CMP, 66281-4 #### [facility] ([id number]) [address], [facility] [address] [place] [address] Platelets (Bld) [#/Vol] 267 10*3/uL Normal 150-450 [facility] Comment on above: Performed By: #### Thais BCA, CMP, 49497-7 #### [facility] ([id number]) [address], [facility] [address] [place] [address] RBC COUNT 3.13 X10E12/L Low 4.10-5.70 [facility] Comment on above: Performed By: #### C BCA, CMP, 84303-1 #### [facility] ([id number]) [address] [address] [place] [address] WBC (Bld) [#/Vol] 4.0 10*3/uL Normal 4.0-11.0 [facility] Comment on above: Performed By: #### Thais BCA, CMP, 16706-5 #### [facility] ([id number]) [address], [address] [place] [address] COMPREHENSIVE METABOLIC PANE [place] 04-17-2024 Albumin [Mass/Vol] 3.7 g/dL Normal 3.2-5.3 [facility] Comment on above: Performed By: #### C BCA, CMP, 59421-6 #### [facility] ([id number]) [address], [address] [place] [address] ALP [Catalytic activity/Vol] 83 U/L Normal 39-130 [facility] Comment on above: Performed By: #### C BCA, CMP, 75872-2 #### [facility] ([id number]) [address], [address] [place] [address] ALT [Catalytic activity/Vol] 29 U/L Normal 0-40 [facility] Comment on above: Performed By: #### C BCA, CMP, 58552-7 #### [facility] ([id number]) [address] [place] [address] Anion gap [Moles/Vol] 8 mmol/L Normal 5-15 [facility] Comment on above: Performed By: #### C BCA, CMP, 32778-3 #### [facility] ([id number]) [address], [address] [place] [address] AST [Catalytic activity/Vol] 23 U/L Normal 0-41 [facility] Comment on above: Performed By: #### C BCA, CMP, 96082-9 #### [facility] ([id number]) [address], [address] [place] [address] Bilirubin [Mass/Vol] 0.8 mg/dL Normal 0.3-1.2 [facility] Comment on above: Performed By: #### C BCA, CMP, 73020-8 #### [facility] ([id number]) [address] [place] [address] Calcium [Mass/Vol] 8.5 mg/dL Normal 8.5-10.5 [facility] Comment on above: Performed By: #### C BCA, CMP, 45519-9 #### [facility] ([id number]) [address], [address] [place] [address] Chloride [Moles/Vol] 102 mmol/L Normal 98-109 [facility] Comment on above: Performed By: #### C BCA, CMP, 59697-2 #### [facility] ([id number]) [address], [address] [place] [address] CO2 [Moles/Vol] 27 mmol/L Normal 22-32 [facility] Comment on above: Performed By: #### C ZACHARY CMP, 38280-9 #### [facility] ([id number]) [address], [address] [place] [address] Creatinine [Mass/Vol] 0.61 mg/dL Normal 0.60-1.30 [facility] Comment on above: Result Comment: METH OD TRACEABLE TO IDMS STANDARD Performed By: #### C NAHOMY SHARMA, 66647-7 #### [facility] ([id number]) [address], [address] [place] [address] eGFR (CKD-EPI) NON-RACE DEPENDENT >90 Normal >59 [facility] Comment on above: Result Comment: Reported eGFR is based on the CKD-EPI 2020 equation that does not use a race coefficient. Performed By: #### C NAHOMY SHARMA, 08009-4 #### [facility] ([id number]) [address], [address] [place] [address] Glucose [Mass/Vol] 123 mg/dL High 65-99 [facility] Comment on above: Performed By: #### C NAHOMY SHARMA, 11328-3 #### [facility] ([id number]) [address], [address] [place] [address] Potassium [Moles/Vol] 4.1 mmol/L Normal 3.5-5.0 [facility] Comment on above: Performed By: #### C ZACHARY, CMP, 41952-7 #### [facility] ([id number]) [address] [place] [address] Protein [Mass/Vol] 5.7 g/dL Low 6.0-8.0 [facility] Comment on above: Performed By: #### C ZACHARY CMP, 31915-1 #### [facility] ([id number]) [address], [address] [place] [address] Sodium [Moles/Vol] 137 mmol/L Normal 134-146 [facility] Comment on above: Performed By: #### C BCA, CMP, 63363-8 #### [facility] ([id number]) [address], [address] [place] [address] Urea nitrogen [Mass/Vol] 16 mg/dL Normal 5-27 [facility] Comment on above: Performed By: #### C BCA, CMP, 27366-0 #### [facility] ([id number]) [address], [address] [place] [address] Glucose Glucometer (BldC) [M ass/Vol]on 04-17-2024 Glucose [Mass/Vol] 97 mg/dL Normal 65-99 [facility] HGB AND HCTon 04-17-2024 Hematocrit (Bld) [Volume fraction] 28.5 % Low 39-49 [facility] Comment on above: Performed By: #### C ZACHARY, CMP, 75313-0 #### [facility] ([id number]) [address], [address] [place] [address] Hemoglobin (Bld) [Mass/Vol] 9.8 g/dL Low 13.0-17.0 [facility] Comment on above: Performed By: #### C BCA, CMP, 50326-3 #### [facility] ([id number]) [address], [address] [place] [address] Hematocrit (Bld) [Volume fraction] 29.3 % Low 39-49 [facility] Comment on above: Performed By: #### C BCA, CMP, 87861-5 #### [facility] ([id number]) [address], [address] [place] [address] Hemoglobin (Bld) [Mass/Vol] 10.0 g/dL Low 13.0-17.0 [facility] Comment on above: Performed By: #### C ZACHARY, CMP, 43560-0 #### [facility] ([id number]) [address], [address] [place] [address] CBC AND AUTO DIFFon 04-16-20 24 Eosinophils (Bld) [#/Vol] 0.1 10*3/uL Normal 0.0-0.4 [facility] Comment on above: Performed By: #### C ZACHARY, CMP ####[facility] ([id number])[address] [address] [place] [address] Eosinophils/100 WBC (Bld) 3.1 % Normal [facility] Comment on above: Performed By: #### C ZACHARY, CMP ####[facility] ([id number])[address] [address] Erythrocyte distribution width (RBC) [Ratio] 16.6 % High 11.5-15.0 [facility] Comment on above: Performed By: #### C ZACHARY, CMP ####[facility] ([id number])[address] [address] Hematocrit (Bld) [Volume fraction] 28.1 % Low 39-49 [facility] Comment on above: Performed By: #### C ZACHARY, CMP ####[facility] ([id number])[address] [address] Hemoglobin (Bld) [Mass/Vol] 9.8 g/dL Low 13.0-17.0 [facility] Comment on above: Performed By: #### C ZACHARY, CMP ####[facility] ([id number])[address] [address] Lymphocytes (Bld) [#/Vol] 1.2 10*3/uL Normal 1.0-3.5 [facility] Comment on above: Performed By: #### C BCA, CMP ####[facility] ([id number])[address] [place] [address] Lymphocytes/100 WBC (Bld) 27.6 % Normal [facility] Comment on above: Performed By: #### C BCA, CMP ####[facility] ([id number])[address], [address] [place] [address] MCH (RBC) [Entitic mass] 31.6 pg Normal 27-34 [facility] Comment on above: Performed By: #### C ZACHARY, CMP ####[facility] ([id number])[address], [address] [place] [address] MCHC (RBC) [Mass/Vol] 34.9 g/dL Normal 32-36 [facility] Comment on above: Performed By: #### C ZACHARY, CMP ####[facility] ([id number])[address], [address] [place] [address] MCV (RBC) [Entitic vol] 91 fL Normal 80-100 [facility] Comment on above: Performed By: #### C BCA, CMP ####[facility] ([id number])[address], [address] [place] [address] Monocytes (Bld) [#/Vol] 0.2 10*3/uL Normal 0-0.9 [facility] Comment on above: Performed By: #### C BCA, CMP ####[facility] ([id number])[address] [place] [address] Monocytes/100 WBC (Bld) 5.1 % Normal [facility] Comment on above: Performed By: #### C BCA, CMP ####[facility] ([id number])[address], [address] [place] [address] Neutrophils (Bld) [#/Vol] 2.7 10*3/uL Normal 1.5-6.6 [facility] Comment on above: Performed By: #### C BCA, CMP ####[facility] ([id number])[address], [place] [address] OVALOCYTE 1+ Abnormal NONE [facility] Comment on above: Performed By: #### C BCA, CMP ####[facility] ([id number])[address] [place] [address] Platelet mean volume (Bld) [Entitic vol] 7.1 fL Normal 7-12 [facility] Comment on above: Performed By: #### C ZACHARY, CMP ####[facility] ([id number])[address], [address] [place] [address] Platelets (Bld) [#/Vol] 257 10*3/uL Normal 150-450 [facility] Comment on above: Performed By: #### C ZACHARY, CMP ####[facility] ([id number])[address], [address] [place] [address] POLYCHROMASIA 1+ Abnormal NONE [facility] Comment on above: Performed By: #### C BCA, CMP ####[facility] ([id number])[address] [address] RBC COUNT 3.10 X10E12/L Low 4.10-5.70 [facility] Comment on above: Performed By: #### C BCA, CMP ####[facility] ([id number])[address], [address] [place] [address] SEG NEUTROPHIL 64.2 % Normal [facility] Comment on above: Performed By: #### C BCA, CMP ####[facility] ([id number])[address], [address] [address] WBC (Bld) [#/Vol] 4.2 10*3/uL Normal 4.0-11.0 [facility] Comment on above: Performed By: #### C BCA, CMP ####[facility] ([id number])[address], [place] [address] COMPREHENSIVE METABOLIC PANE [place] 04-16-2024 Albumin [Mass/Vol] 3.8 g/dL Normal 3.2-5.3 [facility] Comment on above: Performed By: #### C BCA, CMP ####[facility] ([id number])[address], [place] [address] ALP [Catalytic activity/Vol] 71 U/L Normal 39-130 [facility] Comment on above: Performed By: #### C BCA, CMP ####[facility] ([id number])[address], [address], [place] [address] ALT [Catalytic activity/Vol] 19 U/L Normal 0-40 [facility] Comment on above: Performed By: #### C BCA, CMP ####[facility] ([id number])[address], [address], [place] [address] Anion gap [Moles/Vol] 12 mmol/L Normal 5-15 [facility] Comment on above: Performed By: #### C BCA, CMP ####[facility] ([id number])[address], [address], [place] [address] AST [Catalytic activity/Vol] 16 U/L Normal 0-41 [facility] Comment on above: Performed By: #### C BCA, CMP ####[facility] ([id number])[address], [address], [place] [address] Bilirubin [Mass/Vol] 0.7 mg/dL Normal 0.3-1.2 [facility] Comment on above: Performed By: #### C BCA, CMP ####[facility] ([id number])[address], [address], [place] [address] Calcium [Mass/Vol] 8.4 mg/dL Low 8.5-10.5 [facility] Comment on above: Performed By: #### C BCA, CMP ####[facility] ([id number])[address] [address], [place] [address] Chloride [Moles/Vol] 102 mmol/L Normal 98-109 [facility] Comment on above: Performed By: #### C BCA, CMP ####[facility] ([id number])[address] [address], [place] [address] CO2 [Moles/Vol] 24 mmol/L Normal 22-32 [facility] Comment on above: Performed By: #### C BCA, CMP ####[facility] ([id number])[address] [address], [place] [address] Creatinine [Mass/Vol] 0.60 mg/dL Normal 0.60-1.30 [facility] Comment on above: Result Comment: METH OD TRACEABLE TO IDMS STANDARD Performed By: #### C BCA, CMP ####[facility] ([id number])[address] [address] [address] eGFR (CKD-EPI) NON-RACE DEPENDENT >90 Normal >59 [facility] Comment on above: Result Comment: Reported eGFR is based on the CKD-EPI 2020 equation that does not use a race coefficient. Performed By: #### C BCA, CMP ####[facility] ([id number])[address] [address], [place] [address] Glucose [Mass/Vol] 147 mg/dL High 65-99 [facility] Comment on above: Performed By: #### C BCA, CMP ####[facility] ([id number])[address] [address] [address] Potassium [Moles/Vol] 3.8 mmol/L Normal 3.5-5.0 [facility] Comment on above: Performed By: #### C BCA, CMP ####[facility] ([id number])[address], [address] [place] [address] Protein [Mass/Vol] 5.6 g/dL Low 6.0-8.0 [facility] Comment on above: Performed By: #### C BCA, CMP ####[facility] ([id number])[address], [address] [place] [address] Sodium [Moles/Vol] 138 mmol/L Normal 134-146 [facility] Comment on above: Performed By: #### C BCA, CMP ####[facility] ([id number])[address] [place] [address] Urea nitrogen [Mass/Vol] 13 mg/dL Normal 5-27 [facility] Comment on above: Performed By: #### C BCA, CMP ####[facility] ([id number])[address], [address] [place] [address] Glucose Glucometer (BldC) [M ass/Vol]on 04-16-2024 Glucose [Mass/Vol] 137 mg/dL High 65-99 [facility] Glucose [Mass/Vol] 145 mg/dL High 65-99 [facility] Glucose [Mass/Vol] 144 mg/dL High 65-99 [facility] Glucose [Mass/Vol] 151 mg/dL High 65-99 [facility] Glucose [Mass/Vol] 148 mg/dL High 65-99 [facility] HGB AND HCTon 04-16-2024 Hematocrit (Bld) [Volume fraction] 26.4 % Low 39-49 [facility] Comment on above: Performed By: #### C BCA, CMP, 14879-7 #### [facility] ([id number]) [address], [address] [place] [address] Hemoglobin (Bld) [Mass/Vol] 9.4 g/dL Low 13.0-17.0 [facility] Comment on above: Performed By: #### C ZACHARY, CMP, 41928-1 #### [facility] ([id number]) [address] [place] [address] Hematocrit (Bld) [Volume fraction] 30.2 % Low 39-49 [facility] Comment on above: Performed By: #### H H ####[facility] ([id number])[address], [place] [address] Hemoglobin (Bld) [Mass/Vol] 10.5 g/dL Low 13.0-17.0 [facility] Comment on above: Performed By: #### H H ####[facility] ([id number])[address], [place] [address] Hematocrit (Bld) [Volume fraction] 27.8 % Low 39-49 [facility] Comment on above: Performed By: #### H H ####[facility] ([id number])[address], [place] [address] Hemoglobin (Bld) [Mass/Vol] 9.6 g/dL Low 13.0-17.0 [facility] Comment on above: Performed By: #### H H ####[facility] ([id number])[address], [place] [address] CBC AND AUTO DIFFon 04-15-20 24 Eosinophils (Bld) [#/Vol] 0.3 10*3/uL Normal 0.0-0.4 [facility] Comment on above: Performed By: #### C ZACHARY, CMP ####[facility] ([id number])[address] [place] [address] Eosinophils/100 WBC (Bld) 5.0 % Normal [facility] Comment on above: Performed By: #### C BCA, CMP ####[facility] ([id number])[address], [address], [place] [address] Erythrocyte distribution width (RBC) [Ratio] 16.0 % High 11.5-15.0 [facility] Comment on above: Performed By: #### C ZACHARY, CMP ####[facility] ([id number])[address], [address], [place] [address] Hematocrit (Bld) [Volume fraction] 25.9 % Low 39-49 [facility] Comment on above: Performed By: #### C ZACHARY, CMP ####[facility] ([id number])[address], [place] [address] Hemoglobin (Bld) [Mass/Vol] 9.0 g/dL Low 13.0-17.0 [facility] Comment on above: Performed By: #### Thais SHARMA, CMP ####[facility] ([id number])[address] [place] [address] Lymphocytes (Bld) [#/Vol] 1.6 10*3/uL Normal 1.0-3.5 [facility] Comment on above: Performed By: #### C ZACHARY, CMP ####[facility] ([id number])[address] [address] Lymphocytes/100 WBC (Bld) 32.0 % Normal [facility] Comment on above: Performed By: #### C ZACHARY, CMP ####[facility] ([id number])[address], [address], [place] [address] MCH (RBC) [Entitic mass] 31.2 pg Normal 27-34 [facility] Comment on above: Performed By: #### C BCA, CMP ####[facility] ([id number])[address], [address], [place] [address] MCHC (RBC) [Mass/Vol] 34.7 g/dL Normal 32-36 [facility] Comment on above: Performed By: #### C BCA, CMP ####[facility] ([id number])[address], [address], [place] [address] MCV (RBC) [Entitic vol] 90 fL Normal 80-100 [facility] Comment on above: Performed By: #### C BCA, CMP ####[facility] ([id number])[address] [place] [address] Monocytes (Bld) [#/Vol] 0.4 10*3/uL Normal 0-0.9 [facility] Comment on above: Performed By: #### C BCA, CMP ####[facility] ([id number])[address] [place] [address] Monocytes/100 WBC (Bld) 9.0 % Normal [facility] Comment on above: Performed By: #### C BCA, CMP ####[facility] ([id number])[address] [place] [address] Neutrophils (Bld) [#/Vol] 2.7 10*3/uL Normal 1.5-6.6 [facility] Comment on above: Performed By: #### C BCA, CMP ####[facility] ([id number])[address], [place] [address] Platelet mean volume (Bld) [Entitic vol] 7.0 fL Normal 7-12 [facility] Comment on above: Performed By: #### C BCA, CMP ####[facility] ([id number])[address] [address], [place] [address] Platelets (Bld) [#/Vol] 225 10*3/uL Normal 150-450 [facility] Comment on above: Performed By: #### C BCA, CMP ####[facility] ([id number])[address], [place] [address] POLYCHROMASIA 1+ Abnormal NONE [facility] Comment on above: Performed By: #### C BCA, CMP ####[facility] ([id number])[address], [place] [address] RBC COUNT 2.88 X10E12/L Low 4.10-5.70 [facility] Comment on above: Performed By: #### C BCA, CMP ####[facility] ([id number])[address], [place] [address] SEG NEUTROPHIL 54.0 % Normal [facility] Comment on above: Performed By: #### C BCA, CMP ####[facility] ([id number])[address] [address], [place] [address] WBC (Bld) [#/Vol] 5.0 10*3/uL Normal 4.0-11.0 [facility] Comment on above: Performed By: #### C BCA, CMP ####[facility] ([id number])[address], [place] [address] COMPREHENSIVE METABOLIC PANE [place] 04-15-2024 Albumin [Mass/Vol] 3.5 g/dL Normal 3.2-5.3 [facility] Comment on above: Performed By: #### C BCA, CMP ####[facility] ([id number])[address] [place] [address] ALP [Catalytic activity/Vol] 64 U/L Normal 39-130 [facility] Comment on above: Performed By: #### C BCA, CMP ####[facility] ([id number])[address] [place] [address] ALT [Catalytic activity/Vol] 18 U/L Normal 0-40 [facility] Comment on above: Performed By: #### C BCA, CMP ####[facility] ([id number])[address], [place] [address] Anion gap [Moles/Vol] 8 mmol/L Normal 5-15 [facility] Comment on above: Performed By: #### C BCA, CMP ####[facility] ([id number])[address], [place] [address] AST [Catalytic activity/Vol] 18 U/L Normal 0-41 [facility] Comment on above: Performed By: #### C BCA, CMP ####[facility] ([id number])[address], [place] [address] Bilirubin [Mass/Vol] 0.7 mg/dL Normal 0.3-1.2 [facility] Comment on above: Performed By: #### C BCA, CMP ####[facility] ([id number])[address], [place] [address] Calcium [Mass/Vol] 8.3 mg/dL Low 8.5-10.5 [facility] Comment on above: Performed By: #### C BCA, CMP ####[facility] ([id number])[address], [place] [address] Chloride [Moles/Vol] 100 mmol/L Normal 98-109 [facility] Comment on above: Performed By: #### C BCA, CMP ####[facility] ([id number])[address], [place] [address] CO2 [Moles/Vol] 28 mmol/L Normal 22-32 [facility] Comment on above: Performed By: #### C BCA, CMP ####[facility] ([id number])[address], [place] [address] Creatinine [Mass/Vol] 0.56 mg/dL Low 0.60-1.30 [facility] Comment on above: Result Comment: METH OD TRACEABLE TO IDMS STANDARD Performed By: #### C BCA, CMP ####[facility] ([id number])[address] [address], [place] [address] eGFR (CKD-EPI) NON-RACE DEPENDENT >90 Normal >59 [facility] Comment on above: Result Comment: Reported eGFR is based on the CKD-EPI 2020 equation that does not use a race coefficient. Performed By: #### C BCA, CMP ####[facility] ([id number])[address] [address], [place] [address] Glucose [Mass/Vol] 152 mg/dL High 65-99 [facility] Comment on above: Performed By: #### C BCA, CMP ####[facility] ([id number])[address] [address], [place] [address] Potassium [Moles/Vol] 4.2 mmol/L Normal 3.5-5.0 [facility] Comment on above: Performed By: #### C BCA, CMP ####[facility] ([id number])[address] [address], [place] [address] Protein [Mass/Vol] 5.4 g/dL Low 6.0-8.0 [facility] Comment on above: Performed By: #### C BCA, CMP ####[facility] ([id number])[address] [address], [place] [address] Sodium [Moles/Vol] 136 mmol/L Normal 134-146 [facility] Comment on above: Performed By: #### C BCA, CMP ####[facility] ([id number])[address] [address], [place] [address] Urea nitrogen [Mass/Vol] 14 mg/dL Normal 5-27 [facility] Comment on above: Performed By: #### C BCA, CMP ####[facility] ([id number])[address] [address], [place] [address] Glucose Glucometer (BldC) [M ass/Vol]on 04-15-2024 Glucose [Mass/Vol] 159 mg/dL High 65-99 [facility] Glucose [Mass/Vol] 146 mg/dL High 65-99 [facility] Glucose [Mass/Vol] 145 mg/dL High 65-99 [facility] Glucose [Mass/Vol] 153 mg/dL High 65-99 [facility] Glucose [Mass/Vol] 164 mg/dL High 65-99 [facility] HGB AND HCTon 04-15-2024 Hematocrit (Bld) [Volume fraction] 27.1 % Low 39-49 [facility] Comment on above: Performed By: #### H H ####[facility] ([id number])[address] [place] [address] Hemoglobin (Bld) [Mass/Vol] 9.3 g/dL Low 13.0-17.0 [facility] Comment on above: Performed By: #### H H ####[facility] ([id number])[address] [place] [address] Hematocrit (Bld) [Volume fraction] 26.9 % Low 39-49 [facility] Comment on above: Performed By: #### H H ####[facility] ([id number])[address] [place] [address] Hemoglobin (Bld) [Mass/Vol] 9.5 g/dL Low 13.0-17.0 [facility] Comment on above: Performed By: #### H H ####[facility] ([id number])[address] [place] [address] Hematocrit (Bld) [Volume fraction] 27.2 % Low 39-49 [facility] Comment on above: Performed By: #### H H ####[facility] ([id number])[address] [address] Hemoglobin (Bld) [Mass/Vol] 9.4 g/dL Low 13.0-17.0 [facility] Comment on above: Performed By: #### H H ####[facility] ([id number])[address], [place] [address] CBC AND AUTO DIFFon 04-14-20 24 Band form neutrophils/100 WBC (Bld) 1.0 % Normal [facility] Comment on above: Performed By: #### U A #### [facility] ([id number]) [address], [address] [place] [address] Eosinophils (Bld) [#/Vol] 0.5 10*3/uL High 0.0-0.4 [facility] Comment on above: Performed By: #### U A #### [facility] ([id number]) [address], [address] [place] [address] Eosinophils/100 WBC (Bld) 7.0 % Normal [facility] Comment on above: Performed By: #### U A #### [facility] ([id number]) [address], [address] [place] [address] Erythrocyte distribution width (RBC) [Ratio] 15.8 % High 11.5-15.0 [facility] Comment on above: Performed By: #### U A #### [facility] ([id number]) [address], [address] [place] [address] Hematocrit (Bld) [Volume fraction] 25.8 % Low 39-49 [facility] Comment on above: Performed By: #### U A #### [facility] ([id number]) [address], [address] [place] [address] Hemoglobin (Bld) [Mass/Vol] 9.0 g/dL Low 13.0-17.0 [facility] Comment on above: Performed By: #### U A #### [facility] ([id number]) [address], [address] [place] [address] IMMATURE MONONUCLEAR 1.0 % Normal [facility] Comment on above: Performed By: #### U A #### [facility] ([id number]) [address], [address] [place] [address] Lymphocytes (Bld) [#/Vol] 1.7 10*3/uL Normal 1.0-3.5 [facility] [place] Comment on above: Performed By: #### U A #### [facility] ([id number]) [address], [address] [place] [address] Lymphocytes/100 WBC (Bld) 23.0 % Normal [facility] Comment on above: Performed By: #### U A #### [facility] ([id number]) [address], [address] [place] [address] MCH (RBC) [Entitic mass] 31.0 pg Normal 27-34 [facility] Comment on above: Performed By: #### U A #### [facility] ([id number]) [address], [address] [place] [address] MCHC (RBC) [Mass/Vol] 34.9 g/dL Normal 32-36 [facility] Comment on above: Performed By: #### U A #### [facility] ([id number]) [address], [address] [place] [address] MCV (RBC) [Entitic vol] 89 fL Normal 80-100 [facility] Comment on above: Performed By: #### U A #### [facility] ([id number]) [address], [address] [place] [address] Metamyelocytes/100 WBC (Bld) 1.0 % Normal [facility] Comment on above: Performed By: #### U A #### [facility] ([id number]) [address] [place] [address] Monocytes (Bld) [#/Vol] 0.5 10*3/uL Normal 0-0.9 [facility] Comment on above: Performed By: #### U A #### [facility] ([id number]) [address], [address] [place] [address] Monocytes/100 WBC (Bld) 7.0 % Normal [facility] Comment on above: Performed By: #### U A #### [facility] ([id number]) [address], [address] [place] [address] MYELOCYTE 1.0 % Normal [facility] Comment on above: Performed By: #### U A #### [facility] ([id number]) [address], [address] [place] [address] Neutrophils (Bld) [#/Vol] 4.4 10*3/uL Normal 1.5-6.6 [facility] Comment on above: Performed By: #### U A #### [facility] ([id number]) [address], [address] [place] [address] NUCLEATED RBC 1.0 /100 WBC Normal 0.0-1.0 [facility] Comment on above: Performed By: #### U A #### [facility] ([id number]) [address], [address] [place] [address] Platelet mean volume (Bld) [Entitic vol] 7.2 fL Normal 7-12 [facility] Comment on above: Performed By: #### U A #### [facility] ([id number]) [address], [address] [place] [address] Platelets (Bld) [#/Vol] 241 10*3/uL Normal 150-450 [facility] Comment on above: Performed By: #### U A #### [facility] ([id number]) [address] [place] [address] POLYCHROMASIA 1+ Abnormal NONE [facility] Comment on above: Performed By: #### U A #### [facility] ([id number]) [address], [address] [place] [address] RBC COUNT 2.90 X10E12/L Low 4.10-5.70 [facility] Comment on above: Performed By: #### U A #### [facility] ([id number]) [address] [facility] [place] [address] SEG NEUTROPHIL 59.0 % Normal [facility] Comment on above: Performed By: #### U A #### [facility] ([id number]) [address] [facility] [place] [address] WBC (Bld) [#/Vol] 7.4 10*3/uL Normal 4.0-11.0 [facility] Comment on above: Performed By: #### U A #### [facility] ([id number]) [address], [address] [place] [address] COMPREHENSIVE METABOLIC PANE [place] 04-14-2024 Albumin [Mass/Vol] 3.6 g/dL Normal 3.2-5.3 [facility] Comment on above: Performed By: #### U A #### [facility] ([id number]) [address], [address] [place] [address] ALP [Catalytic activity/Vol] 55 U/L Normal 39-130 [facility] Comment on above: Performed By: #### U A #### [facility] ([id number]) [address], [address] [place] [address] ALT [Catalytic activity/Vol] 10 U/L Normal 0-40 [facility] Comment on above: Performed By: #### U A #### [facility] ([id number]) [address], [address] [place] [address] Anion gap [Moles/Vol] 10 mmol/L Normal 5-15 [facility] Comment on above: Performed By: #### U A #### [facility] ([id number]) [address], [address] [place] [address] AST [Catalytic activity/Vol] 12 U/L Normal 0-41 [facility] Comment on above: Performed By: #### U A #### [facility] ([id number]) [address], [address] [place] [address] Bilirubin [Mass/Vol] 0.7 mg/dL Normal 0.3-1.2 [facility] Comment on above: Performed By: #### U A #### [facility] ([id number]) [address], [address] [place] [address] Calcium [Mass/Vol] 8.4 mg/dL Low 8.5-10.5 [facility] Comment on above: Performed By: #### U A #### [facility] ([id number]) [address], [address] [place] [address] Chloride [Moles/Vol] 100 mmol/L Normal 98-109 [facility] Comment on above: Performed By: #### U A #### [facility] ([id number]) [address], [address] [place] [address] CO2 [Moles/Vol] 26 mmol/L Normal 22-32 [facility] Comment on above: Performed By: #### U A #### [facility] ([id number]) [address], [address] [place] [address] Creatinine [Mass/Vol] 0.61 mg/dL Normal 0.60-1.30 [facility] Comment on above: Result Comment: METH OD TRACEABLE TO IDMS STANDARD Performed By: #### U A #### [facility] ([id number]) [address], [address] [place] [address] eGFR (CKD-EPI) NON-RACE DEPENDENT >90 Normal >59 [facility] Comment on above: Result Comment: Reported eGFR is based on the CKD-EPI 2020 equation that does not use a race coefficient. Performed By: #### U A #### [facility] ([id number]) [address], [address] [place] [address] Glucose [Mass/Vol] 189 mg/dL High 65-99 [facility] Comment on above: Performed By: #### U A #### [facility] ([id number]) [address] [address] [place] [address] Potassium [Moles/Vol] 4.0 mmol/L Normal 3.5-5.0 [facility] Comment on above: Performed By: #### U A #### [facility] ([id number]) [address] [address] [place] [address] Protein [Mass/Vol] 5.6 g/dL Low 6.0-8.0 [facility] Comment on above: Performed By: #### U A #### [facility] ([id number]) [address] [address] [place] [address] Sodium [Moles/Vol] 136 mmol/L Normal 134-146 [facility] Comment on above: Performed By: #### U A #### [facility] ([id number]) [address] [address] [place] [address] Urea nitrogen [Mass/Vol] 23 mg/dL Normal 5-27 [facility] Comment on above: Performed By: #### U A #### [facility] ([id number]) [address] [address] [place] [address] Glucose Glucometer (BldC) [M ass/Vol]on 04-14-2024 Glucose [Mass/Vol] 148 mg/dL High 65-99 [facility] Glucose [Mass/Vol] 158 mg/dL High 65-99 [facility] Glucose [Mass/Vol] 180 mg/dL High 65-99 [facility] Glucose [Mass/Vol] 185 mg/dL High 65-99 [facility] HGB AND HCTon 04-14-2024 Hematocrit (Bld) [Volume fraction] 26.1 % Low 39-49 [facility] Comment on above: Performed By: #### U A #### [facility] ([id number]) [address], [address] [place] [address] Hemoglobin (Bld) [Mass/Vol] 9.2 g/dL Low 13.0-17.0 [facility] Comment on above: Performed By: #### U A #### [facility] ([id number]) [address], [address] [place] [address] Hematocrit (Bld) [Volume fraction] 26.2 % Low 39-49 [facility] Comment on above: Performed By: #### U A #### [facility] ([id number]) [address], [address] [place] [address] Hemoglobin (Bld) [Mass/Vol] 8.7 g/dL Low 13.0-17.0 [facility] Comment on above: Performed By: #### U A #### [facility] ([id number]) [address], [address] [place] [address] TTG AB IGA IGGon 04-14-2024 TTG AB IGA <1.2 Normal <4.0 (Negative) [facility] TTG AB IGG <1.2 Normal <6.0 (Negative) [facility] Comment on above: Result Comment: NOTE Test Performed by: [facility] [address] [place] [address] [employer] Captain: Naty Doyle Ph.D.; CLIA# [id number] CBC AND AUTO DIFFon 04-13-20 Eosinophils (Bld) [#/Vol] 0.2 10*3/uL Normal 0.0-0.4 [facility] Comment on above: Performed By: #### C ZACHARY, CMP ####[facility] ([id number])[address] [address] Eosinophils/100 WBC (Bld) 3.0 % Normal [facility] Comment on above: Performed By: #### C ZACHARY, CMP ####[facility] ([id number])[address] [address] Erythrocyte distribution width (RBC) [Ratio] 14.4 % Normal 11.5-15.0 [facility] Comment on above: Performed By: #### C ZACHARY, CMP ####[facility] ([id number])[address] [address] Hematocrit (Bld) [Volume fraction] 17.2 % Low 39-49 [facility] Comment on above: Performed By: #### C ZACHARY, CMP ####[facility] ([id number])[address] [address] Hemoglobin (Bld) [Mass/Vol] 5.8 g/dL Critically low 13.0-17.0 [facility] Comment on above: Performed By: #### C BCA, CMP ####[facility] ([id number])[address] [address] Lymphocytes (Bld) [#/Vol] 2.1 10*3/uL Normal 1.0-3.5 [facility] Comment on above: Performed By: #### C ZACHARY, CMP ####[facility] ([id number])[address] [address] Lymphocytes/100 WBC (Bld) 27.0 % Normal [facility] Comment on above: Performed By: #### C BCA, CMP ####[facility] ([id number])[address] [address] MCH (RBC) [Entitic mass] 30.4 pg Normal 27-34 [facility] Comment on above: Performed By: #### C BCA, CMP ####[facility] ([id number])[address], [address] [place] [address] MCHC (RBC) [Mass/Vol] 33.9 g/dL Normal 32-36 [facility] Comment on above: Performed By: #### C ZACHARY, CMP ####[facility] ([id number])[address], [address], [place] [address] MCV (RBC) [Entitic vol] 90 fL Normal 80-100 [facility] Comment on above: Performed By: #### C BCA, CMP ####[facility] ([id number])[address] [address], [place] [address] Metamyelocytes/100 WBC (Bld) 1.0 % Normal [facility] Comment on above: Performed By: #### C BCA, CMP ####[facility] ([id number])[address] [address] Monocytes (Bld) [#/Vol] 0.4 10*3/uL Normal 0-0.9 [facility] Comment on above: Performed By: #### C BCA, CMP ####[facility] ([id number])[address], [place] [address] Monocytes/100 WBC (Bld) 5.0 % Normal [facility] Comment on above: Performed By: #### C BCA, CMP ####[facility] ([id number])[address] [address] Neutrophils (Bld) [#/Vol] 4.8 10*3/uL Normal 1.5-6.6 [facility] Comment on above: Performed By: #### C BCA, CMP ####[facility] ([id number])[address], [place] [address] NUCLEATED RBC 1.0 /100 WBC Normal 0.0-1.0 [facility] Comment on above: Performed By: #### C BCA, CMP ####[facility] ([id number])[address] [address], [place] [address] Platelet mean volume (Bld) [Entitic vol] 7.3 fL Normal 7-12 [facility] Comment on above: Performed By: #### C ZACHARY, CMP ####[facility] ([id number])[address] [address] [place] [address] Platelets (Bld) [#/Vol] 259 10*3/uL Normal 150-450 [facility] Comment on above: Performed By: #### C ZACHARY, CMP ####[facility] ([id number])[address] [address] POLYCHROMASIA 2+ Abnormal NONE [facility] Comment on above: Performed By: #### C BCA, CMP ####[facility] ([id number])[address] [address], [place] [address] RBC COUNT 1.92 X10E12/L Low 4.10-5.70 [facility] Comment on above: Performed By: #### C BCA, CMP ####[facility] ([id number])[address] [address] SEG NEUTROPHIL 64.0 % Normal [facility] Comment on above: Performed By: #### C BCA, CMP ####[facility] ([id number])[address] [address] WBC (Bld) [#/Vol] 7.6 10*3/uL Normal 4.0-11.0 [facility] Comment on above: Performed By: #### C BCA, CMP ####[facility] ([id number])[address], [place] [address] COMPREHENSIVE METABOLIC PANE [place] 04-13-2024 Albumin [Mass/Vol] 3.3 g/dL Normal 3.2-5.3 [facility] Comment on above: Performed By: #### C BCA, CMP ####[facility] ([id number])[address], [place] [address] ALP [Catalytic activity/Vol] 48 U/L Normal 39-130 [facility] Comment on above: Performed By: #### C BCA, CMP ####[facility] ([id number])[address] [address], [place] [address] ALT [Catalytic activity/Vol] 8 U/L Normal 0-40 [facility] Comment on above: Performed By: #### C BCA, CMP ####[facility] ([id number])[address] [address] Anion gap [Moles/Vol] 8 mmol/L Normal 5-15 [facility] Comment on above: Performed By: #### C BCA, CMP ####[facility] ([id number])[address] [address], [place] [address] AST [Catalytic activity/Vol] 7 U/L Normal 0-41 [facility] Comment on above: Performed By: #### C BCA, CMP ####[facility] ([id number])[address] [address] [place] [address] Bilirubin [Mass/Vol] 0.5 mg/dL Normal 0.3-1.2 [facility] Comment on above: Performed By: #### C BCA, CMP ####[facility] ([id number])[address] [address], [place] [address] Calcium [Mass/Vol] 8.4 mg/dL Low 8.5-10.5 [facility] Comment on above: Performed By: #### C BCA, CMP ####[facility] ([id number])[address] [address], [place] [address] Chloride [Moles/Vol] 102 mmol/L Normal 98-109 [facility] Comment on above: Performed By: #### C BCA, CMP ####[facility] ([id number])[address] [address], [place] [address] CO2 [Moles/Vol] 27 mmol/L Normal 22-32 [facility] Comment on above: Performed By: #### C BCA, CMP ####[facility] ([id number])[address] [address], [place] [address] Creatinine [Mass/Vol] 0.64 mg/dL Normal 0.60-1.30 [facility] Comment on above: Result Comment: METH OD TRACEABLE TO IDMS STANDARD Performed By: #### C BCA, CMP ####[facility] ([id number])[address] [address], [place] [address] eGFR (CKD-EPI) NON-RACE DEPENDENT >90 Normal >59 [facility] Comment on above: Result Comment: Reported eGFR is based on the CKD-EPI 1 equation that does not use a race coefficient. Performed By: #### C BCA, CMP ####[facility] ([id number])[address] [address], [place] [address] Glucose [Mass/Vol] 218 mg/dL High 65-99 [facility] Comment on above: Performed By: #### C BCA, CMP ####[facility] ([id number])[address] [address] [place] [address] Potassium [Moles/Vol] 3.7 mmol/L Normal 3.5-5.0 [facility] Comment on above: Performed By: #### C BCA, CMP ####[facility] ([id number])[address], [address] [place] [address] Protein [Mass/Vol] 4.9 g/dL Low 6.0-8.0 [facility] Comment on above: Performed By: #### C BCA, CMP ####[facility] ([id number])[address], [address] [place] [address] Sodium [Moles/Vol] 137 mmol/L Normal 134-146 [facility] Comment on above: Performed By: #### C BCA, CMP ####[facility] ([id number])[address], [address] [place] [address] Urea nitrogen [Mass/Vol] 35 mg/dL High 5-27 [facility] Comment on above: Performed By: #### C BCA, CMP ####[facility] ([id number])[address] [address] [address] CTA ABD AND PELVISon 03-27 CT [...] Ruth MD on 04/13/2024 5:08 PM Normal [facility] Glucose Glucometer (BldC) [M ass/Vol]on 04-13-2024 Glucose [Mass/Vol] 195 mg/dL High 65-99 [facility] Glucose [Mass/Vol] 215 mg/dL High 65-99 [facility] Glucose [Mass/Vol] 214 mg/dL High 65-99 [facility] Glucose [Mass/Vol] 208 mg/dL High 65-99 [facility] HGB AND HCTon 04-13-2024 Hematocrit (Bld) [Volume fraction] 24.2 % Low 39-49 [facility] Comment on above: Performed By: #### U A #### [facility] ([id number]) [address] [place] [address] Hemoglobin (Bld) [Mass/Vol] 8.5 g/dL Low 13.0-17.0 [facility] Comment on above: Performed By: #### U A #### [facility] ([id number]) [address] [place] [address] Hematocrit (Bld) [Volume fraction] 22.5 % Low 39-49 [facility] Comment on above: Performed By: #### H H ####[facility] ([id number])[address] [place] [address] Hemoglobin (Bld) [Mass/Vol] 7.8 g/dL Low 13.0-17.0 [facility] Comment on above: Performed By: #### H H ####[facility] ([id number])[address] [address] Hematocrit (Bld) [Volume fraction] 16.3 % Low 39-49 [facility] Comment on above: Performed By: #### H H ####[facility] ([id number])[address], [place] [address] Hemoglobin (Bld) [Mass/Vol] 5.9 g/dL Critically low 13.0-17.0 [facility] Comment on above: Performed By: #### H H ####[facility] ([id number])[address], [place] [address] CBC AND AUTO DIFFon 04-12-20 24 ABSOLUTE BASOPHIL 0.0 X10E9/L Normal 0.0-0.2 [facility] Comment on above: Performed By: #### C BCA, CMP #### [facility] ([id number]) [address] [place] [address] ABSOLUTE NEUTROPHIL 4.8 X10E9/L Normal 1.5-6.6 [facility] Comment on above: Performed By: #### C BCA, CMP #### [facility] ([id number]) [address] [place] [address] Basophils/100 WBC (Bld) 0.6 % Normal [facility] Comment on above: Performed By: #### C BCA, CMP #### [facility] ([id number]) [address] [place] [address] Eosinophils (Bld) [#/Vol] 0.0 10*3/uL Normal 0.0-0.4 [facility] Comment on above: Performed By: #### C BCA, CMP #### [facility] ([id number]) [address] [place] [address] Eosinophils/100 WBC (Bld) 0.5 % Normal [facility] Comment on above: Performed By: #### C BCA, CMP #### [facility] ([id number]) [address] [place] [address] Erythrocyte distribution width (RBC) [Ratio] 14.4 % Normal 11.5-15.0 [facility] Comment on above: Performed By: #### C BCA, CMP #### [facility] ([id number]) [address] [place] [address] Hematocrit (Bld) [Volume fraction] 22.5 % Low 39-49 [facility] Comment on above: Performed By: #### C BCA, CMP #### [facility] ([id number]) [address] [place] [address] Hemoglobin (Bld) [Mass/Vol] 7.9 g/dL Low 13.0-17.0 [facility] Comment on above: Performed By: #### C BCA, CMP #### [facility] ([id number]) [address] [place] [address] Lymphocytes (Bld) [#/Vol] 1.6 10*3/uL Normal 1.0-3.5 [facility] Comment on above: Performed By: #### C BCA, CMP #### [facility] ([id number]) [address] [place] [address] Lymphocytes/100 WBC (Bld) 22.9 % Normal [facility] Comment on above: Performed By: #### C BCA, CMP #### [facility] ([id number]) [address] [place] [address] MCH (RBC) [Entitic mass] 31.4 pg Normal 27-34 [facility] Comment on above: Performed By: #### C ZACHARY, CMP #### [facility] ([id number]) [address] [place] [address] MCHC (RBC) [Mass/Vol] 35.1 g/dL Normal 32-36 [facility] Comment on above: Performed By: #### C ZACHARY, CMP #### [facility] ([id number]) [address], [facility] [address] [place] [address] MCV (RBC) [Entitic vol] 90 fL Normal 80-100 [facility] Comment on above: Performed By: #### C ZACHARY, CMP #### [facility] ([id number]) [address], [address] [place] [address] Monocytes (Bld) [#/Vol] 0.4 10*3/uL Normal 0-0.9 [facility] Comment on above: Performed By: #### C ZACHARY, CMP #### [facility] ([id number]) [address], [address] [place] [address] Monocytes/100 WBC (Bld) 5.7 % Normal [facility] Comment on above: Performed By: #### C ZACHARY, CMP #### [facility] ([id number]) [address], [address] [place] [address] Neutrophils/100 WBC (Bld) 70.3 % Normal [facility] Comment on above: Performed By: #### C BCA, CMP #### [facility] ([id number]) [address], [address] [place] [address] Platelet mean volume (Bld) [Entitic vol] 7.4 fL Normal 7-12 [facility] Comment on above: Performed By: #### C BCA, CMP #### [facility] ([id number]) [address], [address] [place] [address] Platelets (Bld) [#/Vol] 281 10*3/uL Normal 150-450 [facility] Comment on above: Performed By: #### C BCA, CMP #### [facility] ([id number]) [address], [address] [place] [address] RBC COUNT 2.52 X10E12/L Low 4.10-5.70 [facility] Comment on above: Performed By: #### C BCA, CMP #### [facility] ([id number]) [address], [address] [place] [address] WBC (Bld) [#/Vol] 6.9 10*3/uL Normal 4.0-11.0 [facility] Comment on above: Performed By: #### C BCA, CMP #### [facility] ([id number]) [address], [address] [place] [address] COMPREHENSIVE METABOLIC PANE [place] 04-12-2024 Albumin [Mass/Vol] 3.9 g/dL Normal 3.2-5.3 [facility] Comment on above: Performed By: #### C BCA, CMP #### [facility] ([id number]) [address], [address] [place] [address] ALP [Catalytic activity/Vol] 58 U/L Normal 39-130 [facility] Comment on above: Performed By: #### C BCA, CMP #### [facility] ([id number]) [address], [address] [place] [address] ALT [Catalytic activity/Vol] 9 U/L Normal 0-40 [facility] Comment on above: Performed By: #### C BCA, CMP #### [facility] ([id number]) [address], [address] [place] [address] Anion gap [Moles/Vol] 9 mmol/L Normal 5-15 [facility] Comment on above: Performed By: #### C BCA, CMP #### [facility] ([id number]) [address], [address] [place] [address] AST [Catalytic activity/Vol] 9 U/L Normal 0-41 [facility] Comment on above: Performed By: #### C BCA, CMP #### [facility] ([id number]) [address], [address] [place] [address] Bilirubin [Mass/Vol] 0.6 mg/dL Normal 0.3-1.2 [facility] Comment on above: Performed By: #### C BCA, CMP #### [facility] ([id number]) [address], [address] [place] [address] Calcium [Mass/Vol] 8.8 mg/dL Normal 8.5-10.5 [facility] Comment on above: Performed By: #### C BCA, CMP #### [facility] ([id number]) [address], [address] [place] [address] Chloride [Moles/Vol] 104 mmol/L Normal 98-109 [facility] Comment on above: Performed By: #### C BCA, CMP #### [facility] ([id number]) [address], [address] [place] [address] CO2 [Moles/Vol] 27 mmol/L Normal 22-32 [facility] Comment on above: Performed By: #### C BCA, CMP #### [facility] ([id number]) [address], [address] [place] [address] Creatinine [Mass/Vol] 0.62 mg/dL Normal 0.60-1.30 [facility] Comment on above: Result Comment: METH OD TRACEABLE TO IDMS STANDARD Performed By: #### C BCA, CMP #### [facility] ([id number]) [address], [address] [place] [address] eGFR (CKD-EPI) NON-RACE DEPENDENT >90 Normal >59 [facility] Comment on above: Result Comment: Reported eGFR is based on the CKD-EPI 2020 equation that does not use a race coefficient. Performed By: #### C BCA, CMP #### [facility] ([id number]) [address] [address] [place] [address] Glucose [Mass/Vol] 206 mg/dL High 65-99 [facility] Comment on above: Performed By: #### C BCA, CMP #### [facility] ([id number]) [address] [address] Potassium [Moles/Vol] 3.7 mmol/L Normal 3.5-5.0 [facility] Comment on above: Performed By: #### C BCA, CMP #### [facility] ([id number]) [address] [address] Protein [Mass/Vol] 5.8 g/dL Low 6.0-8.0 [facility] Comment on above: Performed By: #### C BCA, CMP #### [facility] ([id number]) [address], [address] [place] [address] Sodium [Moles/Vol] 140 mmol/L Normal 134-146 [facility] Comment on above: Performed By: #### C BCA, CMP #### [facility] ([id number]) [address] [address] Urea nitrogen [Mass/Vol] 24 mg/dL Normal 5-27 [facility] Comment on above: Performed By: #### C BCA, CMP #### [facility] ([id number]) [address] [address] [place] [address] Glucose Glucometer (BldC) [M ass/Vol]on 04-12-2024 Glucose [Mass/Vol] 231 mg/dL High 65-99 [facility] Glucose [Mass/Vol] 201 mg/dL High 65-99 [facility] Glucose [Mass/Vol] 265 mg/dL High 65-99 [facility] Glucose [Mass/Vol] 242 mg/dL High 65-99 [facility] comment Harsh (Repo rt)on 04-12-2024 PLATELET INHIB,P2Y12 324 PRU Normal [facility] Comment on above: Result Comment: Low hematocrit, low platelet count and some hereditary disorders may affect results. Normal platelet reactivity due to low P2Y12 inhibition response. The P2Y12 Test should be interpreted in conjunction with other clinical and lab data. Performed By: #### C BCA, CMP #### [facility] ([id number]) [address] [place] [address] MR BRAIN WO CONTon MR BRAIN WO [...] Metz MD on 04/12/2024 11:08 PM Normal [facility] CBC AND AUTO DIFFon 04-11-20 ABSOLUTE BASOPHIL 0.0 X10E9/L Normal 0.0-0.2 [facility] Comment on above: Performed By: #### C BCA, CMP, 97909-5 #### [facility] ([id number]) [address], [address] [place] [address] ABSOLUTE NEUTROPHIL 5.2 X10E9/L Normal 1.5-6.6 [facility] Comment on above: Performed By: #### C BCA, CMP, 64459-3 #### [facility] ([id number]) [address], [address] [place] [address] Basophils/100 WBC (Bld) 0.6 % Normal [facility] Comment on above: Performed By: #### C BCA, CMP, 56509-9 #### [facility] ([id number]) [address], [address] [place] [address] Eosinophils (Bld) [#/Vol] 0.0 10*3/uL Normal 0.0-0.4 [facility] Comment on above: Performed By: #### C BCA, CMP, 52561-4 #### [facility] ([id number]) [address], [address] [place] [address] Eosinophils/100 WBC (Bld) 0.3 % Normal [facility] Comment on above: Performed By: #### C BCA, CMP, 23092-1 #### [facility] ([id number]) [address], [address] [place] [address] Erythrocyte distribution width (RBC) [Ratio] 14.8 % Normal 11.5-15.0 [facility] Comment on above: Performed By: #### C BCA, CMP, 19410-0 #### [facility] ([id number]) [address], [address] [place] [address] Hematocrit (Bld) [Volume fraction] 22.2 % Low 39-49 [facility] Comment on above: Performed By: #### C BCA, CMP, 41752-8 #### [facility] ([id number]) [address], [address] [place] [address] Hemoglobin (Bld) [Mass/Vol] 7.8 g/dL Low 13.0-17.0 [facility] Comment on above: Performed By: #### C BCA, CMP, 27534-9 #### [facility] ([id number]) [address], [facility] [address] [place] [address] Lymphocytes (Bld) [#/Vol] 1.2 10*3/uL Normal 1.0-3.5 [facility] Comment on above: Performed By: #### Thais SHARMA, CMP, 77519-0 #### [facility] ([id number]) [address] [address] [place] [address] Lymphocytes/100 WBC (Bld) 17.7 % Normal [facility] Comment on above: Performed By: #### Thais BCA, CMP, 00170-3 #### [facility] ([id number]) [address], [facility] [address] [place] [address] MCH (RBC) [Entitic mass] 31.6 pg Normal 27-34 [facility] Comment on above: Performed By: #### Thais BCA, CMP, 50463-0 #### [facility] ([id number]) [address], [address] [place] [address] MCHC (RBC) [Mass/Vol] 35.3 g/dL Normal 32-36 [facility] Comment on above: Performed By: #### C BCA, CMP, 40914-6 #### [facility] ([id number]) [address] [address] [place] [address] MCV (RBC) [Entitic vol] 90 fL Normal 80-100 [facility] Comment on above: Performed By: #### Thais BCA, CMP, 84329-5 #### [facility] ([id number]) [address], [address] [place] [address] Monocytes (Bld) [#/Vol] 0.4 10*3/uL Normal 0-0.9 [facility] Comment on above: Performed By: #### Thais SHARMA, CMP, 21010-4 #### [facility] ([id number]) [address], [address] [place] [address] Monocytes/100 WBC (Bld) 5.2 % Normal [facility] Comment on above: Performed By: #### Thais SHARMA, CMP, 36473-3 #### [facility] ([id number]) [address], [address] [place] [address] Neutrophils/100 WBC (Bld) 76.2 % Normal [facility] Comment on above: Performed By: #### Thais SHARMA, CMP, 48526-4 #### [facility] ([id number]) [address], [address] [place] [address] Platelet mean volume (Bld) [Entitic vol] 7.6 fL Normal 7-12 [facility] Comment on above: Performed By: #### Thais SHARMA CMP, 64932-1 #### [facility] ([id number]) [address], [address] [place] [address] Platelets (Bld) [#/Vol] 280 10*3/uL Normal 150-450 [facility] Comment on above: Performed By: #### Thais SHARMA, CMP, 22189-8 #### [facility] ([id number]) [address], [address] [place] [address] RBC COUNT 2.48 X10E12/L Low 4.10-5.70 [facility] Comment on above: Performed By: #### Thais SHARMA, CMP, 30045-3 #### [facility] ([id number]) [address], [address] [place] [address] WBC (Bld) [#/Vol] 6.8 10*3/uL Normal 4.0-11.0 [facility] Comment on above: Performed By: #### C BCA, CMP, 24441-2 #### [facility] ([id number]) [address], [address] [place] [address] COMPREHENSIVE METABOLIC PANE [place] 04-11-2024 Albumin [Mass/Vol] 3.7 g/dL Normal 3.2-5.3 [facility] Comment on above: Performed By: #### C BCA, CMP, 42449-3 #### [facility] ([id number]) [address], [address] [place] [address] ALP [Catalytic activity/Vol] 52 U/L Normal 39-130 [facility] Comment on above: Performed By: #### C BCA, CMP, 88887-5 #### [facility] ([id number]) [address], [address] [place] [address] ALT [Catalytic activity/Vol] 9 U/L Normal 0-40 [facility] Comment on above: Performed By: #### C BCA, CMP, 10793-5 #### [facility] ([id number]) [address], [address] [place] [address] Anion gap [Moles/Vol] 8 mmol/L Normal 5-15 [facility] Comment on above: Performed By: #### C BCA, CMP, 01082-5 #### [facility] ([id number]) [address], [address] [place] [address] AST [Catalytic activity/Vol] 17 U/L Normal 0-41 [facility] Comment on above: Performed By: #### C BCA, CMP, 12379-1 #### [facility] ([id number]) [address], [address] [place] [address] Bilirubin [Mass/Vol] 0.5 mg/dL Normal 0.3-1.2 [facility] Comment on above: Performed By: #### C BCA, CMP, 08310-0 #### [facility] ([id number]) [address], [address] [place] [address] Calcium [Mass/Vol] 8.5 mg/dL Normal 8.5-10.5 [facility] Comment on above: Performed By: #### C BCA, CMP, 98916-2 #### [facility] ([id number]) [address], [address] [place] [address] Chloride [Moles/Vol] 110 mmol/L High 98-109 [facility] Comment on above: Performed By: #### C ZACHARY, CMP, 36254-5 #### [facility] ([id number]) [address], [address] [place] [address] CO2 [Moles/Vol] 25 mmol/L Normal 22-32 [facility] Comment on above: Performed By: #### C ZACHARY, CMP, 12942-2 #### [facility] ([id number]) [address], [address] [place] [address] Creatinine [Mass/Vol] 0.72 mg/dL Normal 0.60-1.30 [facility] Comment on above: Result Comment: METH OD TRACEABLE TO IDMS STANDARD Performed By: #### C ZACHARY, CMP, 04960-6 #### [facility] ([id number]) [address], [address] [place] [address] eGFR (CKD-EPI) NON-RACE DEPENDENT >90 Normal >59 [facility] Comment on above: Result Comment: Reported eGFR is based on the CKD-EPI 2020 equation that does not use a race coefficient. Performed By: #### C BCA, CMP, 23409-7 #### [facility] ([id number]) [address], [address] [place] [address] Glucose [Mass/Vol] 175 mg/dL High 65-99 [facility] Comment on above: Performed By: #### C BCA, CMP, 13529-9 #### [facility] ([id number]) [address], [address] [place] [address] Potassium [Moles/Vol] 4.2 mmol/L Normal 3.5-5.0 [facility] Comment on above: Result Comment: SPEC IMEN HEMOLYZED, RESULTS INCREASED MODERATELY HEMOLYZED Performed By: #### C BCA, CMP, 11732-1 #### [facility] ([id number]) [address], [address] [place] [address] Protein [Mass/Vol] 5.6 g/dL Low 6.0-8.0 [facility] Comment on above: Performed By: #### C BCA, CMP, 07492-3 #### [facility] ([id number]) [address], [address] [place] [address] Sodium [Moles/Vol] 143 mmol/L Normal 134-146 [facility] Comment on above: Performed By: #### C BCA, CMP, 89094-8 #### [facility] ([id number]) [address], [address] [place] [address] Urea nitrogen [Mass/Vol] 41 mg/dL High 5-27 [facility] Comment on above: Performed By: #### C BCA, CMP, 31654-1 #### [facility] ([id number]) [address], [address] [place] [address] Glucose Glucometer (dC) [M ass/Vol]on 04-11-2024 Glucose [Mass/Vol] 254 mg/dL High 65-99 [facility] Glucose [Mass/Vol] 282 mg/dL High 65-99 [facility] Glucose [Mass/Vol] 213 mg/dL High 65-99 [facility] Glucose [Mass/Vol] 236 mg/dL High 65-99 [facility] Glucose [Mass/Vol] 192 mg/dL High 65-99 [facility] Glucose [Mass/Vol] 187 mg/dL High 65-99 [facility] aPTT Coag (PPP) [Time]on aPTT Coag (Bld) [Time] 29 s Normal 26-37 [facility] Comment on above: Performed By: #### C BCA, CMP, 62695-6 #### [facility] ([id number]) [address] [place] [address] CBC AND AUTO DIFFon 04-10-20 24 ABSOLUTE BASOPHIL 0.0 X10E9/L Normal 0.0-0.2 [facility] Comment on above: Performed By: #### C BCA, CMP #### [facility] ([id number]) [address] [place] [address] ABSOLUTE NEUTROPHIL 6.1 X10E9/L Normal 1.5-6.6 [facility] Comment on above: Performed By: #### C BCA, CMP #### [facility] ([id number]) [address], [address] [place] [address] Basophils/100 WBC (Bld) 0.3 % Normal [facility] Comment on above: Performed By: #### C BCA, CMP #### [facility] ([id number]) [address] [place] [address] Eosinophils (Bld) [#/Vol] 0.0 10*3/uL Normal 0.0-0.4 [facility] Comment on above: Performed By: #### C BCA, CMP #### [facility] ([id number]) [address], [address] [place] [address] Eosinophils/100 WBC (Bld) 0.1 % Normal [facility] Comment on above: Performed By: #### C BCA, CMP #### [facility] ([id number]) [address] [place] [address] Erythrocyte distribution width (RBC) [Ratio] 14.3 % Normal 11.5-15.0 [facility] Comment on above: Performed By: #### C ZACHARY, CMP #### [facility] ([id number]) [address] [place] [address] Hematocrit (Bld) [Volume fraction] 22.7 % Low 39-49 [facility] Comment on above: Performed By: #### C ZACHARY, CMP #### [facility] ([id number]) [address] [address] [place] [address] Hemoglobin (Bld) [Mass/Vol] 7.9 g/dL Low 13.0-17.0 [facility] Comment on above: Performed By: #### Thais SHARMA, CMP #### [facility] ([id number]) [address] [address] [place] [address] Lymphocytes (Bld) [#/Vol] 1.1 10*3/uL Normal 1.0-3.5 [facility] Comment on above: Performed By: #### Thais SHARMA, CMP #### [facility] ([id number]) [address] [address] [place] [address] Lymphocytes/100 WBC (Bld) 14.5 % Normal [facility] Comment on above: Performed By: #### Thais SHARMA, CMP #### [facility] ([id number]) [address] [address] [place] [address] MCH (RBC) [Entitic mass] 31.2 pg Normal 27-34 [facility] Comment on above: Performed By: #### C ZACHARY, CMP #### [facility] ([id number]) [address] [address] [place] [address] MCHC (RBC) [Mass/Vol] 35.1 g/dL Normal 32-36 [facility] Comment on above: Performed By: #### C ZACHARY, CMP #### [facility] ([id number]) [address] [place] [address] MCV (RBC) [Entitic vol] 89 fL Normal 80-100 [facility] Comment on above: Performed By: #### C BCA, CMP #### [facility] ([id number]) [address] [place] [address] Monocytes (Bld) [#/Vol] 0.3 10*3/uL Normal 0-0.9 [facility] Comment on above: Performed By: #### C ZACHARY, CMP #### [facility] ([id number]) [address] [place] [address] Monocytes/100 WBC (Bld) 4.3 % Normal [facility] Comment on above: Performed By: #### C ZACHARY, CMP #### [facility] ([id number]) [address], [address] [place] [address] Neutrophils/100 WBC (Bld) 80.8 % Normal [facility] Comment on above: Performed By: #### C ZACHARY, CMP #### [facility] ([id number]) [address] [place] [address] Platelet mean volume (Bld) [Entitic vol] 7.2 fL Normal 7-12 [facility] Comment on above: Performed By: #### C ZACHARY, CMP #### [facility] ([id number]) [address] [place] [address] Platelets (Bld) [#/Vol] 285 10*3/uL Normal 150-450 [facility] Comment on above: Performed By: #### C ZACHARY, CMP #### [facility] ([id number]) [address] [place] [address] RBC COUNT 2.55 X10E12/L Low 4.10-5.70 [facility] Comment on above: Performed By: #### C BCA, CMP #### [facility] ([id number]) [address] [place] [address] WBC (Bld) [#/Vol] 7.6 10*3/uL Normal 4.0-11.0 [facility] Comment on above: Performed By: #### C BCA, CMP #### [facility] ([id number]) [address] [place] [address] ABSOLUTE BASOPHIL 0.0 X10E9/L Normal 0.0-0.2 [facility] Comment on above: Performed By: #### P INR, 16741-6, 66683-3, CBCA, 67343-1, CMP, 4548-4, 6873-4 #### [facility] ([id number]) [address] [place] [address] #### HA1C #### [facility] ([id number]) [address] [place] [address] ABSOLUTE NEUTROPHIL 6.7 X10E9/L High 1.5-6.6 [facility] Comment on above: Performed By: #### P INR, 50857-6, 63909-2, CBCA, 15385-9, CMP, 4548-4, 6873-4 #### [facility] ([id number]) [address] [place] [address] #### HA1C #### [facility] ([id number]) [address] [place] [address] Basophils/100 WBC (Bld) 0.3 % Normal [facility] Comment on above: Performed By: #### P INR, 50724-3, 48734-0, CBCA, 70841-9, CMP, 4548-4, 6873-4 #### [facility] ([id number]) [address] [place] [address] #### HA1C #### [facility] ([id number]) [address] [place] [address] Eosinophils (Bld) [#/Vol] 0.0 10*3/uL Normal 0.0-0.4 [facility] Comment on above: Performed By: #### P INR, 71761-3, 76421-3, CBCA, 04311-5, CMP, 4548-4, 6873-4 #### [facility] ([id number]) [address] [place] [address] #### HA1C #### [facility] ([id number]) [address] [place] [address] Eosinophils/100 WBC (Bld) 0.1 % Normal [facility] Comment on above: Performed By: #### P INR, 24847-1, 23380-4, CBCA, 19399-3, CMP, 4548-4, 6873-4 #### [facility] ([id number]) [address] [place] [address] #### HA1C #### [facility] ([id number]) [address] [place] [address] Erythrocyte distribution width (RBC) [Ratio] 14.3 % Normal 11.5-15.0 [facility] Comment on above: Performed By: #### P INR, 87677-6, 00336-6, CBCA, 00953-1, CMP, 4548-4, 6873-4 #### [facility] ([id number]) [address] [place] [address] #### HA1C #### [facility] ([id number]) [address] [place] [address] Hematocrit (Bld) [Volume fraction] 25.1 % Low 39-49 [facility] Comment on above: Performed By: #### P INR, 81101-9, 41521-0, CBCA, 89620-9, CMP, 4548-4, 6873-4 #### [facility] ([id number]) [address] [place] [address] #### HA1C #### [facility] ([id number]) [address] [place] [address] Hemoglobin (Bld) [Mass/Vol] 8.7 g/dL Low 13.0-17.0 [facility] Comment on above: Performed By: #### P INR, 95998-4, 78250-7, CBCA, 14789-3, CMP, 4548-4, 6873-4 #### [facility] ([id number]) [address] [place] [address] #### HA1C #### [facility] ([id number]) [address], [address] [place] [address] Lymphocytes (Bld) [#/Vol] 1.3 10*3/uL Normal 1.0-3.5 [facility] Comment on above: Performed By: #### P INR, 67179-6, 63359-6, CBCA, 13949-3, CMP, 4548-4, 6873-4 #### [facility] ([id number]) [address] [place] [address] #### HA1C #### [facility] ([id number]) [address], [address] [place] [address] Lymphocytes/100 WBC (Bld) 15.7 % Normal [facility] Comment on above: Performed By: #### P INR, 80817-4, 12915-4, CBCA, 56837-6, CMP, 4548-4, 6873-4 #### [facility] ([id number]) [address] [place] [address] #### HA1C #### [facility] ([id number]) [address], [address] [place] [address] MCH (RBC) [Entitic mass] 30.6 pg Normal 27-34 [facility] Comment on above: Performed By: #### P INR, 47365-6, 87942-9, CBCA, 85563-2, CMP, 4548-4, 6873-4 #### [facility] ([id number]) [address] [place] [address] #### HA1C #### [facility] ([id number]) [address] [facility] [address] [place] [address] MCHC (RBC) [Mass/Vol] 34.8 g/dL Normal 32-36 [facility] Comment on above: Performed By: #### P INR, 43836-8, 35633-0, CBCA, 35862-7, CMP, 4548-4, 6873-4 #### [facility] ([id number]) [address] [place] [address] #### HA1C #### [facility] ([id number]) [address], [address] [place] [address] MCV (RBC) [Entitic vol] 88 fL Normal 80-100 [facility] Comment on above: Performed By: #### P INR, 09319-1, 59145-2, CBCA, 98401-5, CMP, 4548-4, 6873-4 #### [facility] ([id number]) [address] [place] [address] #### HA1C #### [facility] ([id number]) [address], [address] [place] [address] Monocytes (Bld) [#/Vol] 0.4 10*3/uL Normal 0-0.9 [facility] Comment on above: Performed By: #### P INR, 81109-0, 63462-9, CBCA, 77068-4, CMP, 4548-4, 6873-4 #### [facility] ([id number]) [address] [place] [address] 43991 #### HA1C #### [facility] ([id number]) [address], [address] [place] [address] Monocytes/100 WBC (Bld) 5.0 % Normal [facility] Comment on above: Performed By: #### P INR, 42719-9, 57045-9, CBCA, 70867-7, CMP, 4548-4, 6873-4 #### [facility] ([id number]) [address] [place] [address] 70137 #### HA1C #### [facility] ([id number]) [address] [facility] [place] [address] Neutrophils/100 WBC (Bld) 78.9 % Normal [facility] Comment on above: Performed By: #### P INR, 79263-6, 14323-7, CBCA, 97385-8, CMP, 4548-4, 6873-4 #### [facility] ([id number]) [address] [place] [address] 40049 #### HA1C #### [facility] ([id number]) [address] [facility], [address] [place] [address] Platelet mean volume (Bld) [Entitic vol] 7.4 fL Normal 7-12 [facility] Comment on above: Performed By: #### P INR, 13134-4, 29148-7, CBCA, 46924-2, CMP, 4548-4, 6873-4 #### [facility] ([id number]) [address] [place] [address] 15551 #### HA1C #### [facility] ([id number]) [address] [address] [place] [address] Platelets (Bld) [#/Vol] 285 10*3/uL Normal 150-450 [facility] Comment on above: Performed By: #### P INR, 75065-9, 71965-1, CBCA, 05366-0, CMP, 4548-4, 6873-4 #### [facility] ([id number]) [address] [place] [address] 10201 #### HA1C #### [facility] ([id number]) [address] [place] [address] RBC COUNT 2.86 X10E12/L Low 4.10-5.70 [facility] Comment on above: Performed By: #### P INR, 65248-0, 02411-8, CBCA, 34434-0, CMP, 4548-4, 6873-4 #### [facility] ([id number]) [address] [place] [address] 89358 #### HA1C #### [facility] ([id number]) [address] [place] [address] WBC (Bld) [#/Vol] 8.5 10*3/uL Normal 4.0-11.0 [facility] Comment on above: Performed By: #### P INR, 42429-2, 70605-1, CBCA, 67900-4, CMP, 4548-4, 6873-4 #### [facility] ([id number]) [address] [place] [address] 08201 #### HA1C #### [facility] ([id number]) [address] [facility], [address] [place] [address] CBC auto differentialon - Basophils (Bld) [#/Vol] 0.0 10*3/uL [facility] Basophils/100 WBC (Bld) 0.3 % [facility] Eosinophils (Bld) [#/Vol] 0.0 10*3/uL [facility] Eosinophils/100 WBC (Bld) 0.1 % [facility] Erythrocyte distribution width (RBC) [Ratio] 14.3 % 11.5 - 15.0 % [facility] Hematocrit (Bld) [Volume fraction] 25.1 % Low 39 - 49 % [facility] Hemoglobin (Bld) [Mass/Vol] 8.7 g/dL Low 13.0 - 17.0 g/dL [facility] Interpretation and review of laboratory results Abnormal [facility] Lymphocytes (Bld) [#/Vol] 1.3 10*3/uL [facility] Lymphocytes/100 WBC (Bld) 15.7 % [facility] MCH (RBC) [Entitic mass] 30.6 pg 27 - 34 pg [facility] MCHC (RBC) [Mass/Vol] 34.8 g/dL 32 - 3 6 g/dL [facility] MCV (RBC) [Entitic vol] 88 fL 80 - 100 fL [facility] Monocytes (Bld) [#/Vol] 0.4 10*3/uL [facility] Monocytes/100 WBC (Bld) 5.0 % [facility] Neutrophils (Bld) [#/Vol] 6.7 10*3/uL High [facility] Neutrophils/100 WBC (Bld) 78.9 % [facility] Platelet mean volume (Bld) [Entitic vol] 7.4 fL 7 - 12 fL [facility] Platelets (Bld) [#/Vol] 285 10*3/uL [facility] RBC (Bld) [#/Vol] 2.86 10*6/uL Low [facility] WBC corrected for nucl RBC Auto (Bld) [#/Vol] 8.5 [facility] COMPREHENSIVE METABOLIC PANE [place] 04-10-2024 Albumin [Mass/Vol] 3.9 g/dL Normal 3.2-5.3 [facility] Comment on above: Performed By: #### C BCA, CMP #### [facility] ([id number]) [address], [address] [place] [address] ALP [Catalytic activity/Vol] 54 U/L Normal 39-130 [facility] Comment on above: Performed By: #### C BCA, CMP #### [facility] ([id number]) [address], [address] [place] [address] ALT [Catalytic activity/Vol] 8 U/L Normal 0-40 [facility] Comment on above: Performed By: #### C BCA, CMP #### [facility] ([id number]) [address], [address] [place] [address] Anion gap [Moles/Vol] 9 mmol/L Normal 5-15 [facility] Comment on above: Performed By: #### C BCA, CMP #### [facility] ([id number]) [address], [address] [place] [address] AST [Catalytic activity/Vol] 10 U/L Normal 0-41 [facility] Comment on above: Performed By: #### C BCA, CMP #### [facility] ([id number]) [address], [address] [place] [address] Bilirubin [Mass/Vol] 0.6 mg/dL Normal 0.3-1.2 [facility] Comment on above: Performed By: #### C BCA, CMP #### [facility] ([id number]) [address], [address] [place] [address] Calcium [Mass/Vol] 8.8 mg/dL Normal 8.5-10.5 [facility] Comment on above: Performed By: #### C BCA, CMP #### [facility] ([id number]) [address], [address] [place] [address] Chloride [Moles/Vol] 109 mmol/L Normal 98-109 [facility] Comment on above: Performed By: #### C BCA, CMP #### [facility] ([id number]) [address], [address] [place] [address] CO2 [Moles/Vol] 23 mmol/L Normal 22-32 [facility] Comment on above: Performed By: #### C BCA, CMP #### [facility] ([id number]) [address], [address] [place] [address] Creatinine [Mass/Vol] 0.83 mg/dL Normal 0.60-1.30 [facility] Comment on above: Result Comment: METH OD TRACEABLE TO IDMS STANDARD Performed By: #### C BCA, CMP #### [facility] ([id number]) [address], [facility] [address] [place] [address] eGFR (CKD-EPI) NON-RACE DEPENDENT >90 Normal >59 [facility] Comment on above: Result Comment: Reported eGFR is based on the CKD-EPI 2020 equation that does not use a race coefficient. Performed By: #### C BCA, CMP #### [facility] ([id number]) [address], [address] [place] [address] Glucose [Mass/Vol] 193 mg/dL High 65-99 [facility] Comment on above: Performed By: #### C BCA, CMP #### [facility] ([id number]) [address], [address] [place] [address] Potassium [Moles/Vol] 4.1 mmol/L Normal 3.5-5.0 [facility] Comment on above: Performed By: #### C BCA, CMP #### [facility] ([id number]) [address], [address] [place] [address] Protein [Mass/Vol] 5.7 g/dL Low 6.0-8.0 [facility] Comment on above: Performed By: #### C BCA, CMP #### [facility] ([id number]) [address], [address] [place] [address] Sodium [Moles/Vol] 141 mmol/L Normal 134-146 [facility] Comment on above: Performed By: #### C BCA, CMP #### [facility] ([id number]) [address], [address] [place] [address] Urea nitrogen [Mass/Vol] 54 mg/dL High 5-27 [facility] Comment on above: Performed By: #### C BCA, CMP #### [facility] ([id number]) [address], [address] [place] [address] Albumin [Mass/Vol] 3.8 g/dL Normal 3.2-5.3 [facility] Comment on above: Performed By: #### P INR, 72420-0, 93896-0, CBCA, 05846-4, CMP, 4548-4, 6873-4 #### [facility] ([id number]) [address] [place] [address]40 #### HA1C #### [facility] ([id number]) [address], [address] [place] [address] ALP [Catalytic activity/Vol] 55 U/L Normal 39-130 [facility] Comment on above: Performed By: #### P INR, 76473-7, 21381-8, CBCA, 19736-9, CMP, 4548-4, 6873-4 #### [facility] ([id number]) [address] [place] [address] 24059 #### HA1C #### [facility] ([id number]) [address], [address] [place] [address] ALT [Catalytic activity/Vol] 13 U/L Normal 0-40 [facility] Comment on above: Performed By: #### P INR, 92818-7, 59940-6, CBCA, 09454-5, CMP, 4548-4, 6873-4 #### [facility] ([id number]) [address] [place] [address] 73841 #### HA1C #### [facility] ([id number]) [address], [address] [place] [address] Anion gap [Moles/Vol] 11 mmol/L Normal 5-15 [facility] Comment on above: Performed By: #### P INR, 90327-1, 46985-4, CBCA, 04042-4, CMP, 4548-4, 6873-4 #### [facility] ([id number]) [address] [place] [address] 60465 #### HA1C #### [facility] ([id number]) [address], [address] [place] [address] AST [Catalytic activity/Vol] 14 U/L Normal 0-41 [facility] Comment on above: Performed By: #### P INR, 31511-4, 68158-9, CBCA, 55263-8, CMP, 4548-4, 6873-4 #### [facility] ([id number]) [address] [place] [address] 53898 #### HA1C #### [facility] ([id number]) [address], [address] [place] [address] Bilirubin [Mass/Vol] 0.4 mg/dL Normal 0.3-1.2 [facility] Comment on above: Performed By: #### P INR, 27394-2, 01537-5, CBCA, 33727-9, CMP, 4548-4, 6873-4 #### [facility] ([id number]) [address] [place] [address] 99439 #### HA1C #### [facility] ([id number]) [address], [address] [place] [address] Calcium [Mass/Vol] 8.6 mg/dL Normal 8.5-10.5 [facility] Comment on above: Performed By: #### P INR, 99690-2, 27582-3, CBCA, 63955-8, CMP, 4548-4, 6873-4 #### [facility] ([id number]) [address] [place] [address] 81032 #### HA1C #### [facility] ([id number]) [address], [address] [place] [address] Chloride [Moles/Vol] 106 mmol/L Normal 98-109 [facility] Comment on above: Performed By: #### P INR, 74186-3, 02893-4, CBCA, 44456-2, CMP, 4548-4, 6873-4 #### [facility] ([id number]) [address] [place] [address] 07809 #### HA1C #### [facility] ([id number]) [address] [facility] [place] [address] CO2 [Moles/Vol] 20 mmol/L Low 22-32 [facility] Comment on above: Performed By: #### P INR, 17317-4, 03001-7, CBCA, 87990-7, CMP, 4548-4, 6873-4 #### [facility] ([id number]) [address] [place] [address] 43435 #### HA1C #### [facility] ([id number]) [address], [address] [place] [address] Creatinine [Mass/Vol] 1.02 mg/dL Normal 0.70-1.20 [facility] Comment on above: Result Comment: METH OD TRACEABLE TO IDMS STANDARD Performed By: #### P INR, 02612-8, 67526-7, CBCA, 25874-2, CMP, 4548-4, 6873-4 #### [facility] ([id number]) [address] [place] [address] 32873 #### HA1C #### [facility] ([id number]) [address] [facility], [address] [place] [address] GFR/1.73 sq M.predicted among non-blacks MDRD (S/P/Bld) [Vol rate/Area] 79 mL/min/{1.73_m2} Normal >59 [facility] Comment on above: Result Comment: Reported eGFR is based on the CKD-EPI 2020 equation that does not use a race coefficient. Performed By: #### P INR, 46814-1, 34345-9, CBCA, 84123-7, CMP, 4548-4, 6873-4 #### [facility] ([id number]) [address] [place] [address] 37913 #### HA1C #### [facility] ([id number]) [address] [facility], [address] [place] [address] Glucose [Mass/Vol] 195 mg/dL High 65-99 [facility] Comment on above: Performed By: #### P INR, 75055-5, 34578-4, CBCA, 40631-9, CMP, 4548-4, 6873-4 #### [facility] ([id number]) [address] [place] [address] 10369 #### HA1C #### [facility] ([id number]) [address] [facility], [address] [place] [address] Potassium [Moles/Vol] 4.1 mmol/L Normal 3.5-5.0 [facility] Comment on above: Performed By: #### P INR, 82555-0, 86892-1, CBCA, 28200-1, CMP, 4548-4, 6873-4 #### [facility] ([id number]) [address] [place] [address] 61078 #### HA1C #### [facility] ([id number]) [address], [address] [place] [address] Protein [Mass/Vol] 6.1 g/dL Normal 6.0-8.0 [facility] Comment on above: Performed By: #### P INR, 47899-3, 54332-7, CBCA, 85912-0, CMP, 4548-4, 6873-4 #### [facility] ([id number]) [address] [place] [address] 29605 #### HA1C #### [facility] ([id number]) [address] [facility] [place] [address] Sodium [Moles/Vol] 137 mmol/L Normal 134-146 [facility] Comment on above: Performed By: #### P INR, 98553-0, 59152-3, CBCA, 84585-0, CMP, 4548-4, 6873-4 #### [facility] ([id number]) [address] [place] [address] 37893 #### HA1C #### [facility] ([id number]) [address] [facility], [address] [place] [address] Urea nitrogen [Mass/Vol] 86 mg/dL High 5-27 [facility] Comment on above: Performed By: #### P INR, 87691-7, 86872-8, CBCA, 95685-5, CMP, 4548-4, 6873-4 #### [facility] ([id number]) [address] [place] [address] 66638 #### HA1C #### [facility] ([id number]) [address], [address] [place] [address] CT BRAIN WO CONTon 4 CT BRAIN [...] Jaramillo MD on 04/10/2024 2:20 PM Normal [facility] CT CTA CAROTIDon 04-10-2024 CT CTA [...] supervision. Automated exposure control utilized. The [place] Symptomatic Carotid Endarterectomy Trial (NASCET) method for [...] Beatty MD on 04/10/2024 3:14 PM Normal [facility] CT CTA HEADon 04-10-2024 CT CTA [...] Beatty MD on 04/10/2024 2:51 PM Normal [facility] CT Head WO contraston 2023 CLINICAL [...] Rodney Jaramillo MD on 04/10/2024 2:20 PM [facility] Study observation (narrative) [facility] CT Head WO contrastOrdered B y: Rodney Jaramillo on 04-10-2024 [employer] Work Phone: CTA Carotid artery W contras [...] supervision. Automated exposure control utilized. The [place] Symptomatic Carotid Endarterectomy Trial (NASCET) method for [...] Ricardo Beatty MD on 04/10/2024 3:14 PM SECTRAOKRicardo Nevarez MD - 04/10/2024 STUDY: CT angiogram carotid artery with contrast CLINICAL HISTORY: CVA, TIA, Stroke acute neurologic deficit. Stroke. CVA. TIA. COMPARISON: 04/09/2024 TECHNIQUE: CT angiogram performed following intravenous administration of 100 mL Omnipaque 350 nonionic intravenous contrast. Coronal and sagittal and 3-D volume rendered maximum intensity projection images generated and reviewed under concurrent physician supervision. Automated exposure control utilized. The [place] Symptomatic Carotid Endarterectomy Trial (NASCET) method for [...] Ricardo Beatty MD on 04/10/2024 3:14 PM [employer] Radiology Study observation (narrative) [employer] CTA Head Arteries W contrast [place] 04-10-2024 [...] Ricardo Beatty MD on 04/10/2024 2:51 PM [employer] Ricardo Beatty MD - 04/10/2024 CT angiogram [...] Ricardo Beatty MD on 04/10/2024 2:51 PM [facility] Study observation (narrative) [facility] CTA Head Arteries W contrast IVOrdered By: Ricardo Beatty on 04-10-2024 [facility] Work Phone: Comprehensive metabolic pane delonte 04-10-2024 Albumin [Mass/Vol] 3.8 g/dL 3.2 - 5.3 g/dL [facility] ALP [Catalytic activity/Vol] 55 U/L 39 - 130 U/L [facility] ALT No additional P-5'-P [Catalytic activity/Vol] 13 U/L 0 - 40 U/L [facility] Anion gap [Moles/Vol] 11 mmol/L 5 - 15 mmol/L [facility] AST [Catalytic activity/Vol] 14 U/L 0 - 41 U/L [facility] Bilirubin [Mass/Vol] 0.4 mg/dL 0.3 - 1 .2 mg/dL [facility] Calcium [Mass/Vol] 8.6 mg/dL 8.5 - 10. 5 mg/dL [facility] Chloride [Moles/Vol] 106 mmol/L 98 - 10 9 mmol/L [facility] CO2 [Moles/Vol] 20 mmol/L Low 22 - 32 mmol/L [facility] Creatinine [Mass/Vol] 1.02 mg/dL 0.70 - 1.20 mg/dL [facility] Comment on above: METHOD TRACEABLE TO [facility] STANDARD eGFR (CKD-EPI)non-race dependent 79 - PINF [facility] Comment on above: Reported eGFR is based on the CKD-EPI 2020 equation that does not use a race coefficient. Glucose [Mass/Vol] 195 mg/dL High 65 - 99 mg/dL [facility] Interpretation and review of laboratory results Abnormal [facility] Potassium [Moles/Vol] 4.1 mmol/L 3.5 - 5.0 mmol/L [facility] Protein [Mass/Vol] 6.1 g/dL 6.0 - 8.0 g/dL [facility] Sodium [Moles/Vol] 137 mmol/L 134 - 146 mmol/L [facility] Urea nitrogen [Mass/Vol] 86 mg/dL High 5 - 27 mg/dL [facility] Glucose Glucometer (BldC) [M ass/Vol]on 04-10-2024 Glucose [Mass/Vol] 188 mg/dL High 65-99 [facility] Glucose [Mass/Vol] 233 mg/dL High 65-99 [facility] Glucose [Mass/Vol] 232 mg/dL High 65 - 99 mg/dL [facility] Interpretation and review of laboratory results Abnormal [facility] Glucose [Mass/Vol] 232 mg/dL High 65-99 [facility] Glucose [Mass/Vol] 232 mg/dL High 65 - 99 mg/dL [facility] Interpretation and review of laboratory results Abnormal [facility] Glucose [Mass/Vol] 232 mg/dL High 65-99 [facility] Glucose [Mass/Vol] 205 mg/dL High 65 - 99 mg/dL [facility] Interpretation and review of laboratory results Abnormal [facility] Glucose [Mass/Vol] 205 mg/dL High 65-99 [facility] MAGNESIUMon 04-10-2024 Magnesium [Mass/Vol] 2.3 mg/dL Normal 1.8-2.6 [facility] Comment on above: Performed By: #### P INR, 04196-4, 73110-0, CBCA, 34785-9, CMP, 4548-4, 6873-4 #### [facility] ([id number]) [address] [place] [address], [place] [address] #### HA1C #### [facility] ([id number]) [address] [place] [address], [address] [place] [address] Magnesiumon 04-10-2024 Magnesium [Mass/Vol] 2.3 mg/dL 1.8 - 2 .6 mg/dL [facility] No Panel Informationon 04-10 [facility] PHOSPHORUSon 04-10-2024 Phosphate [Mass/Vol] 4.2 mg/dL Normal 2.4-4.9 [facility] Comment on above: Performed By: #### P INR, 23247-1, 00691-1, CBCA, 10924-1, CMP, 4548-4, 6873-4 #### [facility] ([id number]) [address] [place] [address], [place] [address] #### HA1C #### [facility] ([id number]) [address] [place] [address] Phosphate [Mass/Vol]on 04-10 [facility] Phosphoruson 04-10-2024 Phosphate [Mass/Vol] 4.2 mg/dL 2.4 - 4 .9 mg/dL [facility] Repeat ECG 12 leadon 024 TRACEMASTERVUE [facility] URINALYSISon 04-10-2024 Bilirubin Ql (U) Negative Normal NEG [facility] Comment on above: Performed By: #### U A #### [facility] ([id number]) [address], [address] [place] [address] BLOOD/HGB Negative Normal NEG [facility] Comment on above: Performed By: #### U A #### [facility] ([id number]) [address], [address] [place] [address] Color (U) YELLOW Normal YELLOW [facility] Comment on above: Performed By: #### U A #### [facility] ([id number]) [address], [address] [place] [address] Glucose Ql (U) Negative Normal NEG [facility] Comment on above: Performed By: #### U A #### [facility] ([id number]) [address], [address] [place] [address] Ketones Ql (U) Negative Normal NEG [facility] Comment on above: Performed By: #### U A #### [facility] ([id number]) [address], [address] [place] [address] Leukocyte esterase Test strip Ql (U) Negative Normal NEG [facility] Comment on above: Performed By: #### U A #### [facility] ([id number]) [address], [address] [place] [address] Nitrite Ql (U) Negative Normal NEG [facility] Comment on above: Performed By: #### U A #### [facility] ([id number]) [address], [address] [place] [address] pH (U) 5.5 [pH] Normal 5.0-8.5 [facility] Comment on above: Performed By: #### U A #### [facility] ([id number]) [address], [address] [place] [address] Protein Ql (U) Negative Normal NEG [facility] Comment on above: Performed By: #### U A #### [facility] ([id number]) [address], [address] [place] [address] Specific gravity (U) [Rel density] 1.039 High 1.003-1.03 5 [facility] Comment on above: Performed By: #### U A #### [facility] ([id number]) [address], [address] [place] [address] TURBIDITY CLEAR Normal CLEAR [facility] Comment on above: Performed By: #### U A #### [facility] ([id number]) [address], [address] [place] [address] Urinalysis dipstick W Reflex Microscopic panel (U) URINE RECEIVED WITHOUT PRESERVATIVE-DELAYS IN TRANSPORT MAY AFFECT RESULTS.INTERPRET WITH CAUTION AND CLINICAL CORRELATION IS RECOMMENDED. Normal [facility] Comment on above: Performed By: #### U A #### [facility] ([id number]) [address], [address] [place] [address] Urobilinogen (U) [Mass/Vol] mg/dL Normal <1.1 [facility] Comment on above: Performed By: #### U A #### [facility] ([id number]) [address] [place] [address] APTTon 04-09-2024 aPTT Coag (PPP) [Time] 24 s Low Pr [facility] Comment on above: NEW REFERENCE RANGE BASIC METABOLIC PANLon 04-09 Anion gap [Moles/Vol] 12 mmol/L Normal 5-15 [facility] Comment on above: Performed By: #### P INR, 24472-2, 51357-8, CBCA, 30943-0, CMP, 4548-4, 6873-4 #### [facility] ([id number]) [address] [place] [address] #### HA1C #### [facility] ([id number]) [address], [address] [place] [address] Calcium [Mass/Vol] 8.4 mg/dL Low 8.5-10.5 [facility] Comment on above: Performed By: #### P INR, 94934-5, 02504-5, CBCA, 58135-3, CMP, 4548-4, 6873-4 #### [facility] ([id number]) [address] [place] [address] #### HA1C #### [facility] ([id number]) [address], [address] [place] [address] Chloride [Moles/Vol] 102 mmol/L Normal 98-109 [facility] Comment on above: Performed By: #### P INR, 69473-8, 43693-7, CBCA, 30241-4, CMP, 4548-4, 6873-4 #### [facility] ([id number]) [address] [place] [address] #### HA1C #### [facility] ([id number]) [address], [address] [place] [address] CO2 [Moles/Vol] 17 mmol/L Low 22-32 [facility] Comment on above: Performed By: #### P INR, 58969-8, 04476-9, CBCA, 56315-8, CMP, 4548-4, 6873-4 #### [facility] ([id number]) [address] [place] [address] #### HA1C #### [facility] ([id number]) [address] [place] [address] Creatinine [Mass/Vol] 1.49 mg/dL High 0.70-1.20 [facility] Comment on above: Result Comment: METH OD TRACEABLE TO IDMS STANDARD Performed By: #### P INR, 21265-2, 69386-1, CBCA, 59631-8, CMP, 4548-4, 6873-4 #### [facility] ([id number]) [address] [place] [address] 37699 #### HA1C #### [facility] ([id number]) [address] [facility] [address] [place] [address] GFR/1.73 sq M.predicted among non-blacks MDRD (S/P/Bld) [Vol rate/Area] 50 mL/min/{1.73_m2} Low >59 [facility] Comment on above: Result Comment: Reported eGFR is based on the CKD-EPI 2020 equation that does not use a race coefficient. Performed By: #### P INR, 97841-3, 15717-3, CBCA, 39684-1, CMP, 4548-4, 6873-4 #### [facility] ([id number]) [address] [place] [address] 93637 #### HA1C #### [facility] ([id number]) [address] [facility], [address] [place] [address] Glucose [Mass/Vol] 328 mg/dL High 65-99 [facility] Comment on above: Performed By: #### P INR, 50179-4, 86853-6, CBCA, 33370-5, CMP, 4548-4, 6873-4 #### [facility] ([id number]) [address] [place] [address] 88439 #### HA1C #### [facility] ([id number]) [address], [address] [place] [address] Potassium [Moles/Vol] 4.7 mmol/L Normal 3.5-5.0 [facility] Comment on above: Performed By: #### P INR, 15162-3, 59041-8, CBCA, 67824-8, CMP, 4548-4, 6873-4 #### [facility] ([id number]) [address] [place] [address] 34849 #### HA1C #### [facility] ([id number]) [address], [address] [place] [address] Sodium [Moles/Vol] 131 mmol/L Low 134-146 [facility] Comment on above: Performed By: #### P INR, 96505-8, 02115-9, CBCA, 14861-7, CMP, 4548-4, 6873-4 #### [facility] ([id number]) [address] [place] [address] 91588 #### HA1C #### [facility] ([id number]) [address], [address] [place] [address] Urea nitrogen [Mass/Vol] 112 mg/dL High 5-27 [facility] Comment on above: Performed By: #### P INR, 93598-1, 39124-0, CBCA, 26939-0, CMP, 4548-4, 6873-4 #### [facility] ([id number]) [address] [place] [address] 42695 #### HA1C #### [facility] ([id number]) [address], [address] [place] [address] Basic Metabolic Panelon 03-27 Anion gap [Moles/Vol] 12 mmol/L 5 - 15 mmol/L [facility] Calcium [Mass/Vol] 8.4 mg/dL Low 8.5 - 10. 5 mg/dL [facility] Chloride [Moles/Vol] 102 mmol/L 98 - 10 9 mmol/L [facility] CO2 [Moles/Vol] 17 mmol/L Low 22 - 32 mmol/L [facility] Creatinine [Mass/Vol] 1.49 mg/dL High 0.70 - 1.20 mg/dL [facility] Comment on above: METHOD TRACEABLE TO [facility] STANDARD eGFR (CKD-EPI)non-race dependent 50 Low - PINF [facility] Comment on above: Reported eGFR is based on the CKD-EPI 2020 equation that does not use a race coefficient. Glucose [Mass/Vol] 328 mg/dL High 65 - 99 mg/dL [facility] Interpretation and review of laboratory results Abnormal [facility] Potassium [Moles/Vol] 4.7 mmol/L 3.5 - 5.0 mmol/L [facility] Sodium [Moles/Vol] 131 mmol/L Low 134 - 146 mmol/L [facility] Urea nitrogen [Mass/Vol] 112 mg/dL High 5 - 27 mg/dL [facility] CBC AND AUTO DIFFon 04-09-20 ABSOLUTE BASOPHIL 0.0 X10E9/L Normal 0.0-0.2 [facility] Comment on above: Performed By: #### P INR, 67350-1, 22670-9, CBCA, 38550-4, CMP, 4548-4, 6873-4 #### [facility] ([id number]) [address] [place] [address], [place] [address] #### HA1C #### [facility] ([id number]) [address] [facility], [address] [place] [address] ABSOLUTE NEUTROPHIL 8.5 X10E9/L High 1.5-6.6 [facility] Comment on above: Performed By: #### P INR, 11280-5, 38002-1, CBCA, 45197-7, CMP, 4548-4, 6873-4 #### [facility] ([id number]) [address] [place] [address] 62557 #### HA1C #### [facility] ([id number]) [address] [place] [address], [address] [place] [address] Basophils/100 WBC (Bld) 0.4 % Normal [facility] Comment on above: Performed By: #### P INR, 34705-4, 85300-2, CBCA, 56287-3, CMP, 4548-4, 6873-4 #### [facility] ([id number]) [address] [place] [address] 02433 #### HA1C #### [facility] ([id number]) [address] [place] [address], [address] [place] [address] Eosinophils (Bld) [#/Vol] 0.0 10*3/uL Normal 0.0-0.4 [facility] Comment on above: Performed By: #### P INR, 30775-5, 24857-8, CBCA, 84994-2, CMP, 4548-4, 6873-4 #### [facility] ([id number]) [address] [place] [address] 78086 #### HA1C #### [facility] ([id number]) [address] [place] [address], [address] [place] [address] Eosinophils/100 WBC (Bld) 0.1 % Normal [facility] Comment on above: Performed By: #### P INR, 68182-0, 55601-1, CBCA, 90869-4, CMP, 4548-4, 6873-4 #### [facility] ([id number]) [address] [place] [address] 77327 #### HA1C #### [facility] ([id number]) [address], [address] [place] [address] Erythrocyte distribution width (RBC) [Ratio] 13.9 % Normal 11.5-15.0 [facility] Comment on above: Performed By: #### P INR, 34981-0, 28707-8, CBCA, 77262-6, CMP, 4548-4, 6873-4 #### [facility] ([id number]) [address] [place] [address] 12820 #### HA1C #### [facility] ([id number]) [address], [address] [place] [address] Hematocrit (Bld) [Volume fraction] 28.3 % Low 39-49 [facility] Comment on above: Performed By: #### P INR, 51399-4, 03167-9, CBCA, 24123-3, CMP, 4548-4, 6873-4 #### [facility] ([id number]) [address] [place] [address] 35906 #### HA1C #### [facility] ([id number]) [address], [address] [place] [address] Hemoglobin (Bld) [Mass/Vol] 9.8 g/dL Low 13.0-17.0 [facility] Comment on above: Performed By: #### P INR, 58779-2, 40526-4, CBCA, 89547-3, CMP, 4548-4, 6873-4 #### [facility] ([id number]) [address] [place] [address] 13089 #### HA1C #### [facility] ([id number]) [address], [address] [place] [address] Lymphocytes (Bld) [#/Vol] 0.9 10*3/uL Low 1.0-3.5 [facility] Comment on above: Performed By: #### P INR, 67906-6, 48579-1, CBCA, 58807-0, CMP, 4548-4, 6873-4 #### [facility] ([id number]) [address] [place] [address] 07291 #### HA1C #### [facility] ([id number]) [address], [address] [place] [address] Lymphocytes/100 WBC (Bld) 9.0 % Normal [facility] Comment on above: Performed By: #### P INR, 29028-5, 17887-3, CBCA, 24804-7, CMP, 4548-4, 6873-4 #### [facility] ([id number]) [address] [place] [address] 76542 #### HA1C #### [facility] ([id number]) [address] [facility], [address] [place] [address] MCH (RBC) [Entitic mass] 30.9 pg Normal 27-34 [facility] Comment on above: Performed By: #### P INR, 01902-0, 55787-3, CBCA, 26338-4, CMP, 4548-4, 6873-4 #### [facility] ([id number]) [address] [place] [address] 96763 #### HA1C #### [facility] ([id number]) [address], [address] [place] [address] MCHC (RBC) [Mass/Vol] 34.6 g/dL Normal 32-36 [facility] Comment on above: Performed By: #### P INR, 62681-1, 39921-3, CBCA, 70829-4, CMP, 4548-4, 6873-4 #### [facility] ([id number]) [address] [place] [address] 30246 #### HA1C #### [facility] ([id number]) [address], [address] [place] [address] MCV (RBC) [Entitic vol] 89 fL Normal 80-100 [facility] Comment on above: Performed By: #### P INR, 89678-4, 96463-2, CBCA, 28465-9, CMP, 4548-4, 6873-4 #### [facility] ([id number]) [address] [place] [address] 96951 #### HA1C #### [facility] ([id number]) [address], [address] [place] [address] Monocytes (Bld) [#/Vol] 0.3 10*3/uL Normal 0-0.9 [facility] Comment on above: Performed By: #### P INR, 85936-7, 99193-2, CBCA, 47631-4, CMP, 4548-4, 6873-4 #### [facility] ([id number]) [address] [place] [address] 05041 #### HA1C #### [facility] ([id number]) [address], [address] [place] [address] Monocytes/100 WBC (Bld) 3.2 % Normal [facility] Comment on above: Performed By: #### P INR, 77905-0, 42408-2, CBCA, 35975-5, CMP, 4548-4, 6873-4 #### [facility] ([id number]) [address] [place] [address] 32758 #### HA1C #### [facility] ([id number]) [address], [address] [place] [address] Neutrophils/100 WBC (Bld) 87.3 % Normal [facility] Comment on above: Performed By: #### P INR, 23186-6, 18905-7, CBCA, 41761-8, CMP, 4548-4, 6873-4 #### [facility] ([id number]) [address] [place] [address] 79133 #### HA1C #### [facility] ([id number]) [address] [facility], [address] [place] [address] Platelet mean volume (Bld) [Entitic vol] 8.1 fL Normal 7-12 [facility] Comment on above: Performed By: #### P INR, 79107-1, 31257-7, CBCA, 47696-8, CMP, 4548-4, 6873-4 #### [facility] ([id number]) [address] [place] [address] 89330 #### HA1C #### [facility] ([id number]) [address] [facility], [address] [place] [address] Platelets (Bld) [#/Vol] 330 10*3/uL Normal 150-450 [facility] Comment on above: Performed By: #### P INR, 95054-0, 75075-6, CBCA, 62056-0, CMP, 4548-4, 6873-4 #### [facility] ([id number]) [address] [place] [address] 82534 #### HA1C #### [facility] ([id number]) [address] [facility], [address] [place] [address] RBC COUNT 3.16 X10E12/L Low 4.10-5.70 [facility] Comment on above: Performed By: #### P INR, 64107-3, 28297-9, CBCA, 11288-6, CMP, 4548-4, 6873-4 #### [facility] ([id number]) [address] [place] [address] 68228 #### HA1C #### [facility] ([id number]) [address], [address] [place] [address] WBC (Bld) [#/Vol] 9.7 10*3/uL Normal 4.0-11.0 [facility] Comment on above: Performed By: #### P INR, 05545-5, 07368-6, CBCA, 46256-4, CMP, 4548-4, 6873-4 #### [facility] ([id number]) [address] [place] [address], [place] [address] #### HA1C #### [facility] ([id number]) [address] [facility], [address] [place] [address] CBC auto differentialon 03-27 Basophils (Bld) [#/Vol] 0.0 10*3/uL [facility] Basophils/100 WBC (Bld) 0.4 % [facility] Eosinophils (Bld) [#/Vol] 0.0 10*3/uL [facility] Eosinophils/100 WBC (Bld) 0.1 % [facility] Erythrocyte distribution width (RBC) [Ratio] 13.9 % 11.5 - 15.0 % [facility] Hematocrit (Bld) [Volume fraction] 28.3 % Low 39 - 49 % [facility] Hemoglobin (Bld) [Mass/Vol] 9.8 g/dL Low 13.0 - 17.0 g/dL [facility] Interpretation and review of laboratory results Abnormal [facility] Lymphocytes (Bld) [#/Vol] 0.9 10*3/uL Low [facility] Lymphocytes/100 WBC (Bld) 9.0 % [facility] MCH (RBC) [Entitic mass] 30.9 pg 27 - 34 pg [facility] MCHC (RBC) [Mass/Vol] 34.6 g/dL 32 - 3 6 g/dL [facility] MCV (RBC) [Entitic vol] 89 fL 80 - 100 fL [facility] Monocytes (Bld) [#/Vol] 0.3 10*3/uL [facility] Monocytes/100 WBC (Bld) 3.2 % [facility] Neutrophils (Bld) [#/Vol] 8.5 10*3/uL High [facility] Neutrophils/100 WBC (Bld) 87.3 % [facility] Platelet mean volume (Bld) [Entitic vol] 8.1 fL 7 - 12 fL [facility] Platelets (Bld) [#/Vol] 330 10*3/uL [facility] RBC (Bld) [#/Vol] 3.16 10*6/uL [facility] WBC corrected for nucl RBC Auto (Bld) [#/Vol] 9.7 [facility] CT BRAIN WO CONT STROKE ALER Ton [...] Clay MD on 04/09/2024 8:10 AM Normal [facility] CT CTA CAROTIDon 04-09-2024 CT CTA [...] artery narrowing is assessed using the [place] Symptomatic Carotid Endarterectomy Trial (NASCET) method. Comparison: [...] Rothman MD on 04/09/2024 8:34 AM Normal [facility] CT CTA HEADon 04-09-2024 CT CTA [...] Thomson MD on 04/09/2024 8:39 AM Normal [facility] CT Headon 04-09-2024 CT HEAD WITHOUT [...] Ramy Clay MD on 04/09/2024 8:10 AM SECTRAPACS Ramy Clay M D - 04/09/2024 CT [...] Ramy Clay MD on 04/09/2024 8:10 AM [facility] Study observation (narrative) [facility] CT HeadOrdered By: Ramy roach on 04-09-2024 [facility] Work Phone: CTA Carotid artery W contras [...] artery narrowing is assessed using the [place] Symptomatic Carotid Endarterectomy Trial (NASCET) method. Comparison: [...] Kenneth Rothman MD on 04/09/2024 8:34 AM SECTRAOKCS Kenneth Rothman MD - 04/09/2024 History: Weakness [...] artery narrowing is assessed using the [place] Symptomatic Carotid Endarterectomy Trial (NASCET) method. Comparison: [...] Kenneth Rothman MD on 04/09/2024 8:34 AM [facility] Study observation (narrative) [facility] CTA Carotid artery W contras t IVOrdered By: Kenneth Rothman on 04-09-2024 [facility] Work Phone: CTA Head Arteries W contrast [...] Bonnie Thomson MD on 04/09/2024 8:39 AM Bonnie Valle MD - 04/09/2024 CLINICAL INFORMATION: stroke symptoms [...] Bonnie Thomson MD on 04/09/2024 8:39 AM [facility] Study observation (narrative) [facility] CTA Head Arteries W contrast IVOrdered By: Bonnie Thomson on 04-09-2024 [facility] Work Phone: ED NIHSS Screeningon 03-27 Yudelka [...] Contraindications NIHSS Low; No interference with lifestyle [facility] EKG 12 leadon 04-09-2024 TRACEMASTERVUE [facility] Glucose Glucometer (BldC) [M ass/Vol]on 04-09-2024 Glucose [Mass/Vol] 190 mg/dL High 65-99 [facility] Glucose [Mass/Vol] 222 mg/dL High 65 - 99 mg/dL [facility] Interpretation and review of laboratory results Abnormal [facility] Glucose [Mass/Vol] 222 mg/dL High 65-99 [facility] Glucose [Mass/Vol] 258 mg/dL High 65 - 99 mg/dL [facility] Interpretation and review of laboratory results Abnormal [facility] Glucose [Mass/Vol] 258 mg/dL High 65-99 [facility] HGB A1C (GLYCO-HGB)on 2023 Glucose [Mass/Vol] 169 mg/dL Normal [facility] Comment on above: Performed By: #### P INR, 08282-2, 06958-9, CBCA, 60859-2, CMP, 2388-4, 7373-4 #### [facility] ([id number]) [address] [place] [address] 35833 #### HA1C #### [facility] ([id number]) [address] [place] [address], [address] [address] HbA1c (Bld) [Mass fraction] 7.5 % High 4.4-5.6 [facility] Comment on above: Result Comment: NOTE ADA Guidelines Result HgbA1c Normal : less than 5.7 % Prediabetes : 5.7 % to 6.4 % Diabetes : > 6.4 % Use with caution in patients with abnormal hemoglobin variants as the half-life of red blood cells and in vivo glycation rates are affected. Performed By: #### P INR, 26162-4, 53269-2, CBCA, 31796-9, CMP, 4548-4, 6873-4 #### [facility] ([id number]) [address] [place] [address] 37994 #### HA1C #### [facility] ([id number]) [address] [place] [address], [address] [address] Hemoglobin A1con 04-09-2024 Average glucose Estimated from glycated hemoglobin (Bld) [Mass/Vol] 169 mg/dL [facility] HbA1c (Bld) [Mass fraction] 7.5 % High 4.4 - 5.6 % [facility] Comment on above: NOTE ADA Guidelines Result HgbA1c Normal : less than 5.7 % Prediabetes : 5.7 % to 6.4 % Diabetes : > 6.4 % Use with caution in patients with abnormal hemoglobin variants as the half-life of red blood cells and in vivo glycation rates are affected. Interpretation and review of laboratory results Abnormal [facility] Lipid 1996 panelon Cholesterol [Mass/Vol] 142 mg/dL Low 150 - 200 mg/dL [facility] Cholesterol in HDL [Mass/Vol] 27 mg/dL Low 39 - PINF mg/dL [facility] Comment on above: HDL <40 mg/dL - High Risk HDL > or = 40mg/dL- Desirable HDL >60 mg/dL - Negative Risk Cholesterol in LDL [Mass/Vol] 76 mg/dL NINF - 130 mg/dL [facility] Comment on above: LDL <100 mg/dL - Desirable LDL >160 mg/dL - High Risk Cholesterol in VLDL [Mass/Vol] 39 mg/dL High 0 - 30 mg/dL [facility] Cholesterol.total/Chol esterol in HDL [Mass ratio] 5.3 {ratio} High 1.0 - 5.0 [facility] Interpretation and review of laboratory results Abnormal [facility] Triglyceride [Mass/Vol] 196 mg/dL High 27 - 150 mg/dL [facility] Cholesterol [Mass/Vol] 142 mg/dL Low 150-200 [facility] Comment on above: Performed By: #### P INR, 67563-4, 89868-6, CBCA, 43260-4, CMP, 4548-4, 6873-4 #### [facility] ([id number]) [address] [facility], [place] [address] #### HA1C #### [facility] ([id number]) [address] [place] [address], [address] [place] [address] Cholesterol in HDL [Mass/Vol] 27 mg/dL Low >39 [facility] Comment on above: Result Comment: HDL <40 mg/dL - High Risk HDL > or = 40mg/dL- Desirable HDL >60 mg/dL - Negative Risk Performed By: #### P INR, 37733-8, 75186-9, CBCA, 50100-1, CMP, 4548-4, 6873-4 #### [facility] ([id number]) [address] [place] [address] 51547 #### HA1C #### [facility] ([id number]) [address], [address] [place] [address] Cholesterol in LDL [Mass/Vol] 76 mg/dL Normal <130 [facility] Comment on above: Result Comment: LDL <100 mg/dL - Desirable LDL >160 mg/dL - High Risk Performed By: #### P INR, 55005-0, 45026-6, CBCA, 23120-7, CMP, 4548-4, 6873-4 #### [facility] ([id number]) [address] [place] [address] 12878 #### HA1C #### [facility] ([id number]) [address], [address] [place] [address] Cholesterol in VLDL [Mass/Vol] 39 mg/dL High 0-30 [facility] Comment on above: Performed By: #### P INR, 17119-9, 64001-1, CBCA, 86141-8, CMP, 4548-4, 6873-4 #### [facility] ([id number]) [address] [place] [address] 51966 #### HA1C #### [facility] ([id number]) [address], [address] [place] [address] CHOLESTEROL:HDL 5.3 High 1.0-5.0 [facility] Comment on above: Performed By: #### P INR, 32419-9, 90941-4, CBCA, 77121-2, CMP, 4548-4, 6873-4 #### [facility] ([id number]) [address] [place] [address] 09527 #### HA1C #### [facility] ([id number]) [address], [address] [place] [address] Triglyceride [Mass/Vol] 196 mg/dL High 27-150 [facility] Comment on above: Performed By: #### P INR, 39936-6, 60066-7, CBCA, 32188-2, CMP, 4548-4, 6873-4 #### [facility] ([id number]) [address] [place] [address] 46287 #### HA1C #### [facility] ([id number]) [address], [address] [place] [address] MR BRAIN WO CONTon 4 MR BRAIN [...] than peripheral volume loss. Bilateral hippocampal atrophy, qeyr-zx-tbntexlh in severity. Few scattered foci of T2/FLAIR [...] Emmanuel Pastrana on 04/09/2024 9:55 AM Normal [facility] MR Brain WO contraston 04-09 STUDY: [...] than peripheral volume loss. Bilateral hippocampal atrophy, vxmf-mw-vhcrnvwq in severity. Few scattered foci of T2/FLAIR [...] than peripheral volume loss. Bilateral hippocampal atrophy, xnwh-wo-pnfttrle in severity. Few scattered foci of T2/FLAIR [...] by Emmanuel Pastrana on 04/09/2024 9:55 AM [facility] Study observation (narrative) [facility] MR Brain WO contrastOrdered By: Emmanuel Pastrana on 04-09-2024 [facility] Work Phone: No Panel Informationon 04-09 Interpretation and review of laboratory results Abnormal [facility] PHOSPHORUSon 04-09-2024 Phosphate [Mass/Vol] 4.5 mg/dL Normal 2.4-4.9 [facility] Comment on above: Performed By: #### P INR, 17511-6, 60341-6, CBCA, 05539-6, CMP, 4548-4, 6873-4 #### [facility] ([id number]) [address] [place] [address] #### HA1C #### [facility] ([id number]) [address], [address] [place] [address] PROTIME AND INRon 04-09-2024 INR Coag (PPP) [Relative time] 1.2 {INR} High 0.8-1.1 [facility] Comment on above: Performed By: #### P INR, 12087-8, 71486-7, CBCA, 47545-1, CMP, 4548-4, 6873-4 #### [facility] ([id number]) [address] [place] [address] #### HA1C #### [facility] ([id number]) [address], [address] [place] [address] PT Coag (PPP) [Time] 14.0 s High 9.8-13.2 [facility] Comment on above: Result Comment: NEW REFERENCE RANGE Performed By: #### P INR, 11758-9, 44548-7, CBCA, 84358-7, CMP, 4548-4, 6873-4 #### [facility] ([id number]) [address] [place] [address]8445 #### HA1C #### [facility] ([id number]) [address] [place] [address] Phosphate [Mass/Vol]on 04-09 [facility] Phosphoruson 04-09-2024 Phosphate [Mass/Vol] 4.5 mg/dL 2.4 - 4 .9 mg/dL [facility] Protime & INRon 04-09-2024 INR Coag (PPP) [Relative time] 1.2 {INR} High [facility] PT Coag (PPP) [Time] 14.0 s High [facility] Comment on above: NEW REFERENCE RANGE Troponin I, High Sensitivity on 04-09-2024 Troponin I.cardiac High sensitivity method [Mass/Vol] 38 ng/L High NINF - 21 ng/L [facility] Comment on above: Elevations of hs-Troponin may be due to causes other than myocardial ischemia. Recommend serial hs-Troponin testing be performed. For the initial evaluation and management of chest pain patients, refer to the algorithms linked below. Emergency Patient: [email or web address] uh=[email or web address] Inpatient: [email or web address]& uh=acaea Troponin I, High Sensitivity 1 Houron 04-09-2024 Troponin I.cardiac High sensitivity method [Mass/Vol] 60 ng/L High NINF - 21 ng/L [facility] Comment on above: Elevations of hs-Troponin may be due to causes other than myocardial ischemia. Recommend serial hs-Troponin testing be performed. For the initial evaluation and management of chest pain patients, refer to the algorithms linked below. Emergency Patient: [email or web address] uh=[email or web address] Inpatient: [email or web address]& uh=acaea Troponin I, High Sensitivity 3 Houron 04-09-2024 Troponin I.cardiac High sensitivity method [Mass/Vol] 113 ng/L High NINF - 21 ng/L [facility] Comment on above: Elevations of hs-Troponin may be due to causes other than myocardial ischemia. Recommend serial hs-Troponin testing be performed. For the initial evaluation and management of chest pain patients, refer to the algorithms linked below. Emergency Patient: [email or web address] uh=acaea Inpatient: [email or web address]& uh=acaea Troponin I.cardiac High sens itivity method [Mass/Vol]on 04-09-2024 Interpretation and review of laboratory results Abnormal [facility] 3 HOUR TROP I, HIGH SENSITIVITY 113 ng/L High <21 [facility] Comment on above: Result Comment: Elevations of hs-Troponin may be due to causes other than myocardial ischemia. Recommend serial hs-Troponin testing be performed. For the initial evaluation and management of chest pain patients, refer to the algorithms linked below. Emergency Patient: [email or web address]& uh=acaea Inpatient: [email or web address] Performed By: #### P INR, 58960-1, 04072-1, CBCA, 30617-2, CMP, 4548-4, 6873-4 #### [facility] ([id number]) [address] [place] [address], [place] [address] #### HA1C #### [facility] ([id number]) [address] [place] [address], [address] [place] [address] Interpretation and review of laboratory results Abnormal [facility] 1 HOUR TROP I, HIGH SENSITIVITY 60 ng/L High <21 [facility] Comment on above: Result Comment: Elevations of hs-Troponin may be due to causes other than myocardial ischemia. Recommend serial hs-Troponin testing be performed. For the initial evaluation and management of chest pain patients, refer to the algorithms linked below. Emergency Patient: [email or web address] Inpatient: [email or web address] Performed By: #### P INR, 23304-5, 38383-0, CBCA, 36075-5, CMP, 4548-4, 6873-4 #### [facility] ([id number]) [address] [place] [address] #### HA1C #### [facility] ([id number]) [address] [facility], [address] [place] [address] Interpretation and review of laboratory results Abnormal [facility] TROPONIN I, HIGH SENSITIVITY 38 ng/L High <21 [facility] Comment on above: Result Comment: Elevations of hs-Troponin may be due to causes other than myocardial ischemia. Recommend serial hs-Troponin testing be performed. For the initial evaluation and management of chest pain patients, refer to the algorithms linked below. Emergency Patient: [email or web address] Inpatient: [email or web address] uh=[email or web address] Performed By: #### P INR, 84578-2, 91046-7, CBCA, 06573-5, CMP, 4548-4, 6873-4 #### [facility] ([id number]) [address] [place] [address] #### HA1C #### [facility] ([id number]) [address] [facility], [address] [place] [address] XR ANKLE LT MIN 3 VWSon 03-27 [...] Rothman MD on 04/09/2024 9:32 AM Normal [facility] XR Ankle - left 3 Viewson [...] Kenneth Rothman MD on 04/09/2024 9:32 AM [facility] Kenneth Rothman MD - 04/09/2024 History: Fall with left [...] Kenneth Rothman MD on 04/09/2024 9:32 AM [facility] Radiology Study observation (narrative) [facility] XR KNEE LT 3 VWSon 4 [...] Keyes MD on 04/09/2024 9:29 AM Normal [facility] XR Knee - left 3 Viewson [...] Angela Keyes MD on 04/09/2024 9:29 AM [facility] Radiology Study observation (narrative) [facility] XR Knee - left 3 ViewsOrdere d By: Angela Keyes on 04-09-2024 [facility] Work Phone: XR PELVIS 1 OR 2 [...] Rothman MD on 04/09/2024 9:37 AM Normal [facility] XR Pelvis 1 or 2 Viewson [...] Kenneth Rothman MD on 04/09/2024 9:[address] [facility] Kenneth Rothman MD - 04/09/2024 History: Fall with left-sided [...] Kenneth Rothman MD on 04/09/2024 9:37 AM [facility] Radiology Study observation (narrative) [facility] XR WRIST RT MIN 3 VWSon [...] Rothman MD on 04/09/2024 9:40 AM Normal [facility] XR Wrist - right 3 Viewson [...] Kenneth Rothman MD on 04/09/2024 9:40 AM [facility] Radiology Study observation (narrative) [facility] aPTT Coag (PPP) [Time]on aPTT Coag (Bld) [Time] 24 s Low 26-37 [facility] Comment on above: Result Comment: NEW REFERENCE RANGE Performed By: #### P INR, 32296-8, 80332-9, CBCA, 24416-2, CMP, 4548-4, 6873-4 #### [facility] ([id number]) [address] [place] [address], [place] [address] #### HA1C #### [facility] ([id number]) [address] [facility], [address] [place] [address] Large Joint Injection/Arthro centesis - PA: R [...] the usual sterile fashion. MANUALLY TRANSCRIBED [facility] - [facility] 4 Viewson Findings: [...] space and varus deformity. MANUALLY TRANSCRIBED RESULTS [facility] Radiology Study observation (narrative) [facility] BASIC METABOLIC PANLon 11-05 Anion gap [Moles/Vol] 11 mmol/L Normal 5-15 [facility] Comment on above: Performed By: #### P INR, 56507-4, 05706-2, CBCA, 06185-0, CMP, 4548-4, 6873-4 #### [facility] ([id number]) [address] [place] [address], [place] [address] #### HA1C #### [facility] ([id number]) [address] [facility], [address] [place] [address] Calcium [Mass/Vol] 8.8 mg/dL Normal 8.5-10.5 [facility] Comment on above: Performed By: #### P INR, 08845-5, 33409-0, CBCA, 91069-8, CMP, 4548-4, 6873-4 #### [facility] ([id number]) [address] [place] [address] #### HA1C #### [facility] ([id number]) [address] [facility], [address] [place] [address] Chloride [Moles/Vol] 96 mmol/L Low 98-109 [facility] Comment on above: Performed By: #### P INR, 91556-6, 50838-4, CBCA, 48477-0, CMP, 4548-4, 6873-4 #### [facility] ([id number]) [address] [place] [address] #### HA1C #### [facility] ([id number]) [address] [facility], [address] [place] [address] CO2 [Moles/Vol] 24 mmol/L Normal 22-32 [facility] Comment on above: Performed By: #### P INR, 02526-0, 38566-9, CBCA, 23549-8, CMP, 4548-4, 6873-4 #### [facility] ([id number]) [address] [place] [address] #### HA1C #### [facility] ([id number]) [address] [facility], [address] [place] [address] Creatinine [Mass/Vol] 0.75 mg/dL Normal 0.70-1.20 [facility] Comment on above: Result Comment: METH OD TRACEABLE TO IDMS STANDARD Performed By: #### P INR, 21176-7, 26441-5, CBCA, 23572-0, CMP, 4548-4, 6873-4 #### [facility] ([id number]) [address] [place] [address] 16588 #### HA1C #### [facility] ([id number]) [address], [address] [place] [address] eGFR (CKD-EPI) NON-RACE DEPENDENT >90 Normal >59 [facility] Comment on above: Result Comment: Reported eGFR is based on the CKD-EPI 1 equation that does not use a race coefficient. Performed By: #### P INR, 40397-7, 40327-9, CBCA, 21159-4, CMP, 4548-4, 6873-4 #### [facility] ([id number]) [address] [place] [address] #### HA1C #### [facility] ([id number]) [address], [address] [place] [address] Glucose [Mass/Vol] 263 mg/dL High 65-99 [facility] Comment on above: Performed By: #### P INR, 71670-4, 57013-7, CBCA, 67038-3, CMP, 4548-4, 6873-4 #### [facility] ([id number]) [address] [place] [address] #### HA1C #### [facility] ([id number]) [address], [address] [place] [address] Potassium [Moles/Vol] 4.2 mmol/L Normal 3.5-5.0 [facility] Comment on above: Performed By: #### P INR, 03364-1, 18189-5, CBCA, 25968-2, CMP, 4548-4, 6873-4 #### [facility] ([id number]) [address] [place] [address] #### HA1C #### [facility] ([id number]) [address], [address] [place] [address] Sodium [Moles/Vol] 131 mmol/L Low 134-146 [facility] Comment on above: Performed By: #### P INR, 08310-4, 24893-3, CBCA, 62927-7, CMP, 4548-4, 6873-4 #### [facility] ([id number]) [address] [place] [address] #### HA1C #### [facility] ([id number]) [address], [address] [place] [address] Urea nitrogen [Mass/Vol] 21 mg/dL Normal 5-27 [facility] Comment on above: Performed By: #### P INR, 14470-3, 08754-6, CBCA, 43096-1, CMP, 4548-4, 6873-4 #### [facility] ([id number]) [address] [place] [address]406 #### HA1C #### [facility] ([id number]) [address], [address] [place] [address] CBC AND AUTO DIFFon 10-29-19 Erythrocyte distribution width (RBC) [Ratio] 13.8 % Normal 11.5-15.0 [facility] Comment on above: Performed By: #### P INR, 24064-4, 74952-9, CBCA, 48591-1, CMP, 4548-4, 6873-4 #### [facility] ([id number]) [address] [place] [address]71 #### HA1C #### [facility] ([id number]) [address], [address] [place] [address] Hematocrit (Bld) [Volume fraction] 46.7 % Normal 39-49 [facility] Comment on above: Performed By: #### P INR, 10477-6, 14595-7, CBCA, 18592-8, CMP, 4548-4, 6873-4 #### [facility] ([id number]) [address] [place] [address] 13284 #### HA1C #### [facility] ([id number]) [address], [address] [place] [address] Hemoglobin (Bld) [Mass/Vol] 16.0 g/dL Normal 13.0-17.0 [facility] Comment on above: Performed By: #### P INR, 27688-1, 64640-9, CBCA, 39248-1, CMP, 4548-4, 6873-4 #### [facility] ([id number]) [address] [place] [address]70 #### HA1C #### [facility] ([id number]) [address], [address] [place] [address] LYMPHOCYTE, ATYPICAL 8.8 % Normal [facility] Comment on above: Performed By: #### P INR, 92093-7, 06081-0, CBCA, 79762-1, CMP, 4548-4, 6873-4 #### [facility] ([id number]) [address] [place] [address] 25549 #### HA1C #### [facility] ([id number]) [address], [address] [place] [address] Lymphocytes (Bld) [#/Vol] 1.9 10*3/uL Normal 1.0-3.5 [facility] Comment on above: Performed By: #### P INR, 33938-3, 60009-3, CBCA, 16879-9, CMP, 4548-4, 6873-4 #### [facility] ([id number]) [address] [place] [address]29 #### HA1C #### [facility] ([id number]) [address], [address] [place] [address] Lymphocytes/100 WBC (Bld) 46.1 % Normal [facility] Comment on above: Performed By: #### P INR, 90993-3, 22541-8, CBCA, 89557-0, CMP, 4548-4, 6873-4 #### [facility] ([id number]) [address] [place] [address]46 #### HA1C #### [facility] ([id number]) [address] [facility], [address] [place] [address] MCH (RBC) [Entitic mass] 29.4 pg Normal 27-34 [facility] Comment on above: Performed By: #### P INR, 61712-3, 91747-0, CBCA, 36472-3, CMP, 4548-4, 6873-4 #### [facility] ([id number]) [address] [place] [address]754 #### HA1C #### [facility] ([id number]) [address] [facility], [address] [place] [address] MCHC (RBC) [Mass/Vol] 34.2 g/dL Normal 32-36 [facility] Comment on above: Performed By: #### P INR, 99239-7, 14416-1, CBCA, 39613-0, CMP, 4548-4, 6873-4 #### [facility] ([id number]) [address] [place] [address]80 #### HA1C #### [facility] ([id number]) [address], [address] [place] [address] MCV (RBC) [Entitic vol] 86 fL Normal 80-100 [facility] Comment on above: Performed By: #### P INR, 07755-2, 26223-7, CBCA, 64155-0, CMP, 4548-4, 6873-4 #### [facility] ([id number]) [address] [place] [address] 10686 #### HA1C #### [facility] ([id number]) [address], [address] [place] [address] Monocytes (Bld) [#/Vol] 0.2 10*3/uL Normal 0-0.9 [facility] Comment on above: Performed By: #### P INR, 31455-6, 07742-2, CBCA, 99774-5, CMP, 4548-4, 6873-4 #### [facility] ([id number]) [address] [place] [address]807 #### HA1C #### [facility] ([id number]) [address], [address] [place] [address] Monocytes/100 WBC (Bld) 4.9 % Normal [facility] Comment on above: Performed By: #### P INR, 05060-4, 87610-5, CBCA, 29363-2, CMP, 4548-4, 6873-4 #### [facility] ([id number]) [address] [place] [address] 02058 #### HA1C #### [facility] ([id number]) [address], [address] [place] [address] Neutrophils (Bld) [#/Vol] 1.4 10*3/uL Low 1.5-6.6 [facility] Comment on above: Performed By: #### P INR, 26207-0, 96859-0, CBCA, 29552-3, CMP, 4548-4, 6873-4 #### [facility] ([id number]) [address] [place] [address] 47052 #### HA1C #### [facility] ([id number]) [address], [address] [place] [address] Platelet mean volume (Bld) [Entitic vol] 7.7 fL Normal 7-12 [facility] Comment on above: Performed By: #### P INR, 69466-3, 35121-8, CBCA, 11205-9, CMP, 4548-4, 6873-4 #### [facility] ([id number]) [address] [place] [address] 64094 #### HA1C #### [facility] ([id number]) [address] [facility], [address] [place] [address] Platelets (Bld) [#/Vol] 214 10*3/uL Normal 150-450 [facility] Comment on above: Performed By: #### P INR, 77902-5, 00544-2, CBCA, 26837-7, CMP, 4548-4, 6873-4 #### [facility] ([id number]) [address] [place] [address] 47698 #### HA1C #### [facility] ([id number]) [address] [facility], [address] [place] [address] RBC COUNT 5.43 X10E12/L Normal 4.10-5.70 [facility] Comment on above: Performed By: #### P INR, 43232-4, 97939-6, CBCA, 25314-5, CMP, 4548-4, 6873-4 #### [facility] ([id number]) [address] [place] [address] 68665 #### HA1C #### [facility] ([id number]) [address] [facility], [address] [place] [address] SEG NEUTROPHIL 40.2 % Normal [facility] Comment on above: Performed By: #### P INR, 27371-9, 67979-3, CBCA, 53383-1, CMP, 4548-4, 6873-4 #### [facility] ([id number]) [address] [place] [address] 04225 #### HA1C #### [facility] ([id number]) [address] [facility], [address] [place] [address] WBC (Bld) [#/Vol] 3.4 10*3/uL Low 4.0-11.0 [facility] Comment on above: Performed By: #### P INR, 75974-6, 23174-8, CBCA, 42185-9, CMP, 4548-4, 6873-4 #### [facility] ([id number]) [address] [place] [address] 21159 #### HA1C #### [facility] ([id number]) [address] [facility], [address] [place] [address] COMPREHENSIVE METABOLIC PANE [place] 10-29-2023 Albumin [Mass/Vol] 4.1 g/dL Normal 3.2-5.3 [facility] Comment on above: Performed By: #### P INR, 79788-9, 72055-8, CBCA, 83028-0, CMP, 4548-4, 6873-4 #### [facility] ([id number]) [address] [place] [address] 77535 #### HA1C #### [facility] ([id number]) [address] [facility], [address] [place] [address] ALP [Catalytic activity/Vol] 66 U/L Normal 39-130 [facility] Comment on above: Performed By: #### P INR, 51500-4, 57964-4, CBCA, 04380-1, CMP, 4548-4, 6873-4 #### [facility] ([id number]) [address] [place] [address] 37255 #### HA1C #### [facility] ([id number]) [address] [facility], [address] [place] [address] ALT [Catalytic activity/Vol] 27 U/L Normal 0-40 [facility] Comment on above: Performed By: #### P INR, 88478-4, 91747-4, CBCA, 61959-6, CMP, 4548-4, 6873-4 #### [facility] ([id number]) [address] [place] [address] 93115 #### HA1C #### [facility] ([id number]) [address], [address] [place] [address] Anion gap [Moles/Vol] 9 mmol/L Normal 5-15 [facility] Comment on above: Performed By: #### P INR, 69106-7, 17762-7, CBCA, 06662-4, CMP, 4548-4, 6873-4 #### [facility] ([id number]) [address] [place] [address] 98894 #### HA1C #### [facility] ([id number]) [address], [address] [place] [address] AST [Catalytic activity/Vol] 19 U/L Normal 0-41 [facility] Comment on above: Performed By: #### P INR, 13352-4, 31405-5, CBCA, 52824-1, CMP, 4548-4, 6873-4 #### [facility] ([id number]) [address] [place] [address] 12475 #### HA1C #### [facility] ([id number]) [address], [address] [place] [address] Bilirubin [Mass/Vol] 0.7 mg/dL Normal 0.3-1.2 [facility] Comment on above: Performed By: #### P INR, 08530-4, 55126-8, CBCA, 68678-5, CMP, 4548-4, 6873-4 #### [facility] ([id number]) [address] [place] [address] 52940 #### HA1C #### [facility] ([id number]) [address], [address] [place] [address] Calcium [Mass/Vol] 9.1 mg/dL Normal 8.5-10.5 [facility] Comment on above: Performed By: #### P INR, 57079-6, 65384-2, CBCA, 73604-0, CMP, 4548-4, 6873-4 #### [facility] ([id number]) [address] [place] [address] 74204 #### HA1C #### [facility] ([id number]) [address] [facility], [address] [place] [address] Chloride [Moles/Vol] 94 mmol/L Low 98-109 [facility] Comment on above: Performed By: #### P INR, 19862-0, 20533-8, CBCA, 08646-7, CMP, 4548-4, 6873-4 #### [facility] ([id number]) [address] [place] [address] 32666 #### HA1C #### [facility] ([id number]) [address] [facility], [address] [place] [address] CO2 [Moles/Vol] 28 mmol/L Normal 22-32 [facility] Comment on above: Performed By: #### P INR, 20042-1, 93279-7, CBCA, 75564-4, CMP, 4548-4, 6873-4 #### [facility] ([id number]) [address] [place] [address] 57731 #### HA1C #### [facility] ([id number]) [address] [facility], [address] [place] [address] Creatinine [Mass/Vol] 0.78 mg/dL Normal 0.70-1.20 [facility] Comment on above: Result Comment: METH OD TRACEABLE TO IDMS STANDARD Performed By: #### P INR, 62437-3, 08223-6, CBCA, 18945-2, CMP, 4548-4, 6873-4 #### [facility] ([id number]) [address] [place] [address] 05909 #### HA1C #### [facility] ([id number]) [address], [address] [place] [address] eGFR (CKD-EPI) NON-RACE DEPENDENT >90 Normal >59 [facility] Comment on above: Result Comment: Reported eGFR is based on the CKD-EPI 2020 equation that does not use a race coefficient. Performed By: #### P INR, 83111-1, 66022-8, CBCA, 13968-5, CMP, 4548-4, 6873-4 #### [facility] ([id number]) [address] [place] [address] 07947 #### HA1C #### [facility] ([id number]) [address], [address] [place] [address] Glucose [Mass/Vol] 232 mg/dL High 65-99 [facility] Comment on above: Performed By: #### P INR, 70802-4, 07392-4, CBCA, 43615-3, CMP, 4548-4, 6873-4 #### [facility] ([id number]) [address] [place] [address] 00382 #### HA1C #### [facility] ([id number]) [address], [address] [place] [address] Potassium [Moles/Vol] 4.1 mmol/L Normal 3.5-5.0 [facility] Comment on above: Performed By: #### P INR, 12551-9, 44785-6, CBCA, 69680-1, CMP, 4548-4, 6873-4 #### [facility] ([id number]) [address] [place] [address] 58031 #### HA1C #### [facility] ([id number]) [address], [address] [place] [address] Protein [Mass/Vol] 7.1 g/dL Normal 6.0-8.0 [facility] Comment on above: Performed By: #### P INR, 14965-7, 32675-4, CBCA, 72878-8, CMP, 4548-4, 6873-4 #### [facility] ([id number]) [address] [place] [address] 59764 #### HA1C #### [facility] ([id number]) [address] [facility], [address] [place] [address] Sodium [Moles/Vol] 131 mmol/L Low 134-146 [facility] Comment on above: Performed By: #### P INR, 67265-1, 75268-1, CBCA, 41367-8, CMP, 4548-4, 6873-4 #### [facility] ([id number]) [address] [place] [address] 24781 #### HA1C #### [facility] ([id number]) [address], [address] [place] [address] Urea nitrogen [Mass/Vol] 14 mg/dL Normal 5-27 [facility] Comment on above: Performed By: #### P INR, 40345-2, 15216-7, CBCA, 92183-4, CMP, 4548-4, 6873-4 #### [facility] ([id number]) [address] [place] [address] 94492 #### HA1C #### [facility] ([id number]) [address], [address] [place] [address] MAGNESIUMon 10-29-2023 Magnesium [Mass/Vol] 1.9 mg/dL Normal 1.8-2.6 [facility] Comment on above: Performed By: #### P INR, 00295-3, 38569-6, CBCA, 87845-7, CMP, 4548-4, 6873-4 #### [facility] ([id number]) [address] [place] [address] #### HA1C #### [facility] ([id number]) [address], [address] [place] [address] CBC AND AUTO DIFFon 10-28-19 24 ABSOLUTE BASOPHIL 0.1 X10E9/L Normal 0.0-0.2 [facility] Comment on above: Performed By: #### P INR, 43664-5, 88048-5, CBCA, 94026-5, CMP, 4548-4, 6873-4 #### [facility] ([id number]) [address] [place] [address] #### HA1C #### [facility] ([id number]) [address], [address] [place] [address] ABSOLUTE NEUTROPHIL 1.5 X10E9/L Normal 1.5-6.6 [facility] Comment on above: Performed By: #### P INR, 47009-4, 46828-8, CBCA, 87545-4, CMP, 4548-4, 6873-4 #### [facility] ([id number]) [address] [place] [address] #### HA1C #### [facility] ([id number]) [address], [address] [place] [address] Basophils/100 WBC (Bld) 1.4 % Normal [facility] Comment on above: Performed By: #### P INR, 24819-6, 34996-9, CBCA, 43348-2, CMP, 4548-4, 6873-4 #### [facility] ([id number]) [address] [place] [address] #### HA1C #### [facility] ([id number]) [address], [address] [place] [address] Eosinophils (Bld) [#/Vol] 0.1 10*3/uL Normal 0.0-0.4 [facility] Comment on above: Performed By: #### P INR, 44156-6, 03998-5, CBCA, 61308-5, CMP, 4548-4, 6873-4 #### [facility] ([id number]) [address] [place] [address] #### HA1C #### [facility] ([id number]) [address], [address] [place] [address] Eosinophils/100 WBC (Bld) 3.1 % Normal [facility] Comment on above: Performed By: #### P INR, 64832-5, 79720-8, CBCA, 25696-7, CMP, 4548-4, 6873-4 #### [facility] ([id number]) [address] [place] [address] #### HA1C #### [facility] ([id number]) [address], [address] [place] [address] Erythrocyte distribution width (RBC) [Ratio] 13.6 % Normal 11.5-15.0 [facility] Comment on above: Performed By: #### P INR, 93453-3, 32509-1, CBCA, 46053-6, CMP, 4548-4, 6873-4 #### [facility] ([id number]) [address] [place] [address] #### HA1C #### [facility] ([id number]) [address], [address] [place] [address] Hematocrit (Bld) [Volume fraction] 42.8 % Normal 39-49 [facility] Comment on above: Performed By: #### P INR, 88638-5, 19594-3, CBCA, 53126-5, CMP, 4548-4, 6873-4 #### [facility] ([id number]) [address] [place] [address] #### HA1C #### [facility] ([id number]) [address] [place] [address] Hemoglobin (Bld) [Mass/Vol] 14.9 g/dL Normal 13.0-17.0 [facility] Comment on above: Performed By: #### P INR, 97851-5, 89672-3, CBCA, 56515-0, CMP, 4548-4, 6873-4 #### [facility] ([id number]) [address] [place] [address] #### HA1C #### [facility] ([id number]) [address] [facility] [facility], [address] [place] [address] Lymphocytes (Bld) [#/Vol] 1.8 10*3/uL Normal 1.0-3.5 [facility] Comment on above: Performed By: #### P INR, 34403-1, 96811-3, CBCA, 02137-3, CMP, 4548-4, 6873-4 #### [facility] ([id number]) [address] [place] [address] #### HA1C #### [facility] ([id number]) [address] [facility] [facility], [address] [place] [address] Lymphocytes/100 WBC (Bld) 46.0 % Normal [facility] Comment on above: Performed By: #### P INR, 57883-7, 16999-8, CBCA, 57006-1, CMP, 4548-4, 6873-4 #### [facility] ([id number]) [address] [place] [address] 08705 #### HA1C #### [facility] ([id number]) [address], [address] [place] [address] MCH (RBC) [Entitic mass] 29.6 pg Normal 27-34 [facility] Comment on above: Performed By: #### P INR, 81702-2, 80373-4, CBCA, 65913-1, CMP, 4548-4, 6873-4 #### [facility] ([id number]) [address] [place] [address] 73224 #### HA1C #### [facility] ([id number]) [address], [address] [place] [address] MCHC (RBC) [Mass/Vol] 34.7 g/dL Normal 32-36 [facility] Comment on above: Performed By: #### P INR, 61363-7, 24561-2, CBCA, 11829-2, CMP, 4548-4, 6873-4 #### [facility] ([id number]) [address] [place] [address] 59186 #### HA1C #### [facility] ([id number]) [address], [address] [place] [address] MCV (RBC) [Entitic vol] 86 fL Normal 80-100 [facility] Comment on above: Performed By: #### P INR, 73473-7, 66045-9, CBCA, 94709-4, CMP, 4548-4, 6873-4 #### [facility] ([id number]) [address] [place] [address] 54952 #### HA1C #### [facility] ([id number]) [address], [address] [place] [address] Monocytes (Bld) [#/Vol] 0.4 10*3/uL Normal 0-0.9 [facility] Comment on above: Performed By: #### P INR, 41878-7, 88752-6, CBCA, 38438-1, CMP, 4548-4, 6873-4 #### [facility] ([id number]) [address] [place] [address] 40895 #### HA1C #### [facility] ([id number]) [address] [facility], [address] [place] [address] Monocytes/100 WBC (Bld) 10.4 % Normal [facility] Comment on above: Performed By: #### P INR, 03866-2, 60537-3, CBCA, 90476-1, CMP, 4548-4, 6873-4 #### [facility] ([id number]) [address] [place] [address] 63900 #### HA1C #### [facility] ([id number]) [address] [facility], [address] [place] [address] Neutrophils/100 WBC (Bld) 39.1 % Normal [facility] Comment on above: Performed By: #### P INR, 02531-9, 15013-2, CBCA, 24769-7, CMP, 4548-4, 6873-4 #### [facility] ([id number]) [address] [place] [address] 70390 #### HA1C #### [facility] ([id number]) [address] [facility], [address] [place] [address] Platelet mean volume (Bld) [Entitic vol] 7.9 fL Normal 7-12 [facility] Comment on above: Performed By: #### P INR, 03638-6, 28842-8, CBCA, 11498-2, CMP, 4548-4, 6873-4 #### [facility] ([id number]) [address] [place] [address] 83925 #### HA1C #### [facility] ([id number]) [address], [address] [place] [address] Platelets (Bld) [#/Vol] 197 10*3/uL Normal 150-450 [facility] Comment on above: Performed By: #### P INR, 92016-2, 32980-2, CBCA, 84922-1, CMP, 4548-4, 6873-4 #### [facility] ([id number]) [address] [place] [address] 93073 #### HA1C #### [facility] ([id number]) [address] [facility], [address] [place] [address] RBC COUNT 5.01 X10E12/L Normal 4.10-5.70 [facility] Comment on above: Performed By: #### P INR, 28280-5, 08627-2, CBCA, 45108-3, CMP, 4548-4, 6873-4 #### [facility] ([id number]) [address] [place] [address] 73737 #### HA1C #### [facility] ([id number]) [address] [facility], [address] [place] [address] WBC (Bld) [#/Vol] 3.9 10*3/uL Low 4.0-11.0 [facility] Comment on above: Performed By: #### P INR, 92042-0, 77399-6, CBCA, 46535-9, CMP, 4548-4, 6873-4 #### [facility] ([id number]) [address] [place] [address] 48182 #### HA1C #### [facility] ([id number]) [address], [address] [place] [address] COMPREHENSIVE METABOLIC PANE [place] 10-28-2023 Albumin [Mass/Vol] 3.8 g/dL Normal 3.2-5.3 [facility] Comment on above: Performed By: #### P INR, 11947-6, 55133-0, CBCA, 09447-3, CMP, 4548-4, 6873-4 #### [facility] ([id number]) [address] [place] [address] 90212 #### HA1C #### [facility] ([id number]) [address] [facility], [address] [place] [address] ALP [Catalytic activity/Vol] 61 U/L Normal 39-130 [facility] Comment on above: Performed By: #### P INR, 35464-8, 87235-6, CBCA, 94369-0, CMP, 4548-4, 6873-4 #### [facility] ([id number]) [address] [place] [address] 43012 #### HA1C #### [facility] ([id number]) [address] [facility], [address] [place] [address] ALT [Catalytic activity/Vol] 22 U/L Normal 0-40 [facility] Comment on above: Performed By: #### P INR, 36222-4, 03468-0, CBCA, 20686-4, CMP, 4548-4, 6873-4 #### [facility] ([id number]) [address] [place] [address] 90094 #### HA1C #### [facility] ([id number]) [address] [facility], [address] [place] [address] Anion gap [Moles/Vol] 10 mmol/L Normal 5-15 [facility] Comment on above: Performed By: #### P INR, 14658-4, 04963-9, CBCA, 31946-8, CMP, 4548-4, 6873-4 #### [facility] ([id number]) [address] [place] [address] 26592 #### HA1C #### [facility] ([id number]) [address] [facility], [address] [place] [address] AST [Catalytic activity/Vol] 18 U/L Normal 0-41 [facility] Comment on above: Performed By: #### P INR, 66311-7, 38774-9, CBCA, 86790-8, CMP, 4548-4, 6873-4 #### [facility] ([id number]) [address] [place] [address] 65850 #### HA1C #### [facility] ([id number]) [address] [facility], [address] [place] [address] Bilirubin [Mass/Vol] 0.8 mg/dL Normal 0.3-1.2 [facility] Comment on above: Performed By: #### P INR, 44152-2, 03435-8, CBCA, 45351-6, CMP, 4548-4, 6873-4 #### [facility] ([id number]) [address] [place] [address] 84667 #### HA1C #### [facility] ([id number]) [address] [facility], [address] [place] [address] Calcium [Mass/Vol] 8.5 mg/dL Normal 8.5-10.5 [facility] Comment on above: Performed By: #### P INR, 41589-8, 22544-7, CBCA, 71127-3, CMP, 4548-4, 6873-4 #### [facility] ([id number]) [address] [place] [address] 38216 #### HA1C #### [facility] ([id number]) [address] [facility], [address] [place] [address] Chloride [Moles/Vol] 94 mmol/L Low 98-109 [facility] Comment on above: Performed By: #### P INR, 08475-5, 15881-1, CBCA, 84601-6, CMP, 4548-4, 6873-4 #### [facility] ([id number]) [address] [place] [address] 04294 #### HA1C #### [facility] ([id number]) [address], [address] [place] [address] CO2 [Moles/Vol] 26 mmol/L Normal 22-32 [facility] Comment on above: Performed By: #### P INR, 40879-0, 57456-2, CBCA, 03850-0, CMP, 4548-4, 6873-4 #### [facility] ([id number]) [address] [place] [address] 47995 #### HA1C #### [facility] ([id number]) [address] [facility], [address] [place] [address] Creatinine [Mass/Vol] 0.79 mg/dL Normal 0.70-1.20 [facility] Comment on above: Result Comment: METH OD TRACEABLE TO IDMS STANDARD Performed By: #### P INR, 73878-9, 36693-4, CBCA, 74937-1, CMP, 4548-4, 6873-4 #### [facility] ([id number]) [address] [place] [address] 93093 #### HA1C #### [facility] ([id number]) [address] [facility], [address] [place] [address] 28918 eGFR (CKD-EPI) NON-RACE DEPENDENT >90 Normal >59 [facility] Comment on above: Result Comment: Reported eGFR is based on the CKD-EPI 2020 equation that does not use a race coefficient. Performed By: #### P INR, 89841-7, 16414-2, CBCA, 81355-5, CMP, 4548-4, 6873-4 #### [facility] ([id number]) [address] [place] [address] 69303 #### HA1C #### [facility] ([id number]) [address], [address] [place] [address] Glucose [Mass/Vol] 228 mg/dL High 65-99 [facility] Comment on above: Performed By: #### P INR, 37039-0, 30535-6, CBCA, 98729-5, CMP, 4548-4, 6873-4 #### [facility] ([id number]) [address] [place] [address] 35126 #### HA1C #### [facility] ([id number]) [address] [facility], [address] [place] [address] Potassium [Moles/Vol] 3.7 mmol/L Normal 3.5-5.0 [facility] Comment on above: Performed By: #### P INR, 11043-0, 99852-4, CBCA, 25322-8, CMP, 4548-4, 6873-4 #### [facility] ([id number]) [address] [place] [address] 09796 #### HA1C #### [facility] ([id number]) [address], [address] [place] [address] Protein [Mass/Vol] 6.3 g/dL Normal 6.0-8.0 [facility] Comment on above: Performed By: #### P INR, 56503-2, 95545-8, CBCA, 37990-0, CMP, 4548-4, 6873-4 #### [facility] ([id number]) [address] [place] [address] 10266 #### HA1C #### [facility] ([id number]) [address], [address] [place] [address] Sodium [Moles/Vol] 130 mmol/L Low 134-146 [facility] Comment on above: Performed By: #### P INR, 33762-0, 35471-4, CBCA, 58940-9, CMP, 4548-4, 6873-4 #### [facility] ([id number]) [address] [place] [address] #### HA1C #### [facility] ([id number]) [address], [address] [place] [address] Urea nitrogen [Mass/Vol] 16 mg/dL Normal 5-27 [facility] Comment on above: Performed By: #### P INR, 77730-3, 29312-1, CBCA, 31237-6, CMP, 4548-4, 6873-4 #### [facility] ([id number]) [address] [place] [address] #### HA1C #### [facility] ([id number]) [address], [address] [place] [address] CT CTA CAROTIDon 10-28-2023 CT CTA CAROTID [...] Giles MD on 10/28/2023 12:26 PM Normal [facility] CT CTA HEADon 10-28-2023 CT CTA [...] Mayes MD on 10/28/2023 12:38 PM Normal [facility] Glucose Glucometer (BldC) [M ass/Vol]on 10-28-2023 Glucose [Mass/Vol] 226 mg/dL High 65-99 [facility] Glucose [Mass/Vol] 279 mg/dL High 65-99 [facility] Glucose [Mass/Vol] 248 mg/dL High 65-99 [facility] Glucose [Mass/Vol] 221 mg/dL High 65-99 [facility] Lipid 1996 panelon Cholesterol [Mass/Vol] 219 mg/dL High 150-200 [facility] Comment on above: Performed By: #### P INR, 46213-2, 52522-3, CBCA, 97072-7, CMP, 4548-4, 6873-4 #### [facility] ([id number]) [address] [place] [address], [place] [address] #### HA1C #### [facility] ([id number]) [address] [facility], [address] [place] [address] Cholesterol in HDL [Mass/Vol] 43 mg/dL Normal >39 [facility] Comment on above: Result Comment: HDL <40 mg/dL - High Risk HDL > or = 40mg/dL- Desirable HDL >60 mg/dL - Negative Risk Performed By: #### P INR, 42314-6, 72080-8, CBCA, 38921-5, CMP, 4548-4, 7573-4 #### [facility] ([id number]) [address] [place] [address] 17292 #### HA1C #### [facility] ([id number]) [address] [facility], [address] [place] [address] Cholesterol in LDL [Mass/Vol] 143 mg/dL High <130 [facility] Comment on above: Result Comment: LDL <100 mg/dL - Desirable LDL >160 mg/dL - High Risk Performed By: #### P INR, 13862-3, 62409-0, CBCA, 93101-4, CMP, 4548-4, 1473-4 #### [facility] ([id number]) [address] [place] [address] 23442 #### HA1C #### [facility] ([id number]) [address] [facility], [address] [place] [address] Cholesterol in VLDL [Mass/Vol] 33 mg/dL High 0-30 [facility] Comment on above: Performed By: #### P INR, 76265-5, 61531-9, CBCA, 55917-5, CMP, 4548-4, 6873-4 #### [facility] ([id number]) [address] [place] [address] 03653 #### HA1C #### [facility] ([id number]) [address], [address] [place] [address] CHOLESTEROL:HDL 5.1 High 1.0-5.0 [facility] Comment on above: Performed By: #### P INR, 06842-8, 64561-2, CBCA, 43094-6, CMP, 4548-4, 6873-4 #### [facility] ([id number]) [address] [place] [address] 03122 #### HA1C #### [facility] ([id number]) [address] [place] [address] Triglyceride [Mass/Vol] 164 mg/dL High 27-150 [facility] Comment on above: Performed By: #### P INR, 26760-8, 73702-4, CBCA, 14742-9, CMP, 4548-4, 6873-4 #### [facility] ([id number]) [address] [place] [address] 42801 #### HA1C #### [facility] ([id number]) [address], [address] [place] [address] MAGNESIUMon 10-28-2023 Magnesium [Mass/Vol] 1.8 mg/dL Normal 1.8-2.6 [facility] Comment on above: Performed By: #### P INR, 69894-9, 27895-5, CBCA, 27687-3, CMP, 4548-4, 6873-4 #### [facility] ([id number]) [address] [place] [address] 29094 #### HA1C #### [facility] ([id number]) [address] [facility], [address] [place] [address] MR BRAIN WO CONTon 4 MR BRAIN [...] Anderson MD on 10/28/2023 10:39 AM Normal [facility] CBC AND AUTO DIFFon 10-27-19 24 ABSOLUTE BASOPHIL 0.0 X10E9/L Normal 0.0-0.2 [facility] Comment on above: Performed By: #### P INR, 53466-5, 62058-1, CBCA, 05485-9, CMP, 4548-4, 6873-4 #### [facility] ([id number]) [address] [place] [address] 95353 #### HA1C #### [facility] ([id number]) [address], [address] [place] [address] ABSOLUTE NEUTROPHIL 1.8 X10E9/L Normal 1.5-6.6 [facility] Comment on above: Performed By: #### P INR, 94183-4, 21445-4, CBCA, 63284-2, CMP, 4548-4, 6873-4 #### [facility] ([id number]) [address] [place] [address] 96062 #### HA1C #### [facility] ([id number]) [address], [address] [place] [address] Basophils/100 WBC (Bld) 1.2 % Normal [facility] Comment on above: Performed By: #### P INR, 49245-4, 74468-5, CBCA, 29747-9, CMP, 4548-4, 6873-4 #### [facility] ([id number]) [address] [place] [address] 35440 #### HA1C #### [facility] ([id number]) [address], [address] [place] [address] Eosinophils (Bld) [#/Vol] 0.1 10*3/uL Normal 0.0-0.4 [facility] Comment on above: Performed By: #### P INR, 07586-2, 77914-7, CBCA, 52495-2, CMP, 4548-4, 6873-4 #### [facility] ([id number]) [address] [place] [address] 28180 #### HA1C #### [facility] ([id number]) [address], [address] [place] [address] Eosinophils/100 WBC (Bld) 2.5 % Normal [facility] Comment on above: Performed By: #### P INR, 01246-1, 52200-8, CBCA, 07938-8, CMP, 4548-4, 6873-4 #### [facility] ([id number]) [address] [place] [address] 00475 #### HA1C #### [facility] ([id number]) [address], [address] [place] [address] Erythrocyte distribution width (RBC) [Ratio] 13.5 % Normal 11.5-15.0 [facility] Comment on above: Performed By: #### P INR, 75142-6, 13277-7, CBCA, 97710-3, CMP, 4548-4, 6873-4 #### [facility] ([id number]) [address] [place] [address] 88158 #### HA1C #### [facility] ([id number]) [address], [address] [place] [address] Hematocrit (Bld) [Volume fraction] 43.3 % Normal 39-49 [facility] Comment on above: Performed By: #### P INR, 05700-5, 56805-3, CBCA, 31599-4, CMP, 4548-4, 6873-4 #### [facility] ([id number]) [address] [place] [address] 27585 #### HA1C #### [facility] ([id number]) [address], [address] [place] [address] Hemoglobin (Bld) [Mass/Vol] 14.9 g/dL Normal 13.0-17.0 [facility] Comment on above: Performed By: #### P INR, 63258-4, 71677-7, CBCA, 45799-8, CMP, 4548-4, 6873-4 #### [facility] ([id number]) [address] [place] [address] 20289 #### HA1C #### [facility] ([id number]) [address], [address] [place] [address] Lymphocytes (Bld) [#/Vol] 1.3 10*3/uL Normal 1.0-3.5 [facility] Comment on above: Performed By: #### P INR, 97173-7, 67859-4, CBCA, 57189-9, CMP, 4548-4, 6873-4 #### [facility] ([id number]) [address] [place] [address] 34037 #### HA1C #### [facility] ([id number]) [address], [address] [place] [address] Lymphocytes/100 WBC (Bld) 36.9 % Normal [facility] Comment on above: Performed By: #### P INR, 19784-4, 65488-5, CBCA, 30058-2, CMP, 4548-4, 6873-4 #### [facility] ([id number]) [address] [place] [address] 01765 #### HA1C #### [facility] ([id number]) [address], [address] [place] [address] MCH (RBC) [Entitic mass] 29.3 pg Normal 27-34 [facility] Comment on above: Performed By: #### P INR, 08524-3, 61354-4, CBCA, 81751-4, CMP, 4548-4, 6873-4 #### [facility] ([id number]) [address] [place] [address] 83007 #### HA1C #### [facility] ([id number]) [address], [address] [place] [address] MCHC (RBC) [Mass/Vol] 34.4 g/dL Normal 32-36 [facility] Comment on above: Performed By: #### P INR, 67338-2, 08049-2, CBCA, 06481-6, CMP, 4548-4, 6873-4 #### [facility] ([id number]) [address] [place] [address] 08125 #### HA1C #### [facility] ([id number]) [address], [address] [place] [address] MCV (RBC) [Entitic vol] 85 fL Normal 80-100 [facility] Comment on above: Performed By: #### P INR, 64963-3, 20406-2, CBCA, 78617-9, CMP, 4548-4, 6873-4 #### [facility] ([id number]) [address] [place] [address] 70085 #### HA1C #### [facility] ([id number]) [address], [address] [place] [address] Monocytes (Bld) [#/Vol] 0.3 10*3/uL Normal 0-0.9 [facility] Comment on above: Performed By: #### P INR, 43051-4, 62521-4, CBCA, 54654-1, CMP, 4548-4, 6873-4 #### [facility] ([id number]) [address] [place] [address] 48218 #### HA1C #### [facility] ([id number]) [address] [place] [address] Monocytes/100 WBC (Bld) 8.4 % Normal [facility] Comment on above: Performed By: #### P INR, 49402-9, 56898-8, CBCA, 06229-7, CMP, 4548-4, 6873-4 #### [facility] ([id number]) [address] [place] [address] 01146 #### HA1C #### [facility] ([id number]) [address] [place] [address] Neutrophils/100 WBC (Bld) 51.0 % Normal [facility] Comment on above: Performed By: #### P INR, 10536-4, 69678-2, CBCA, 27571-7, CMP, 4548-4, 6873-4 #### [facility] ([id number]) [address] [place] [address] 76598 #### HA1C #### [facility] ([id number]) [address] [address] Platelet mean volume (Bld) [Entitic vol] 7.7 fL Normal 7-12 [facility] Comment on above: Performed By: #### P INR, 86660-4, 71681-1, CBCA, 08657-4, CMP, 4548-4, 6873-4 #### [facility] ([id number]) [address] [place] [address] 66543 #### HA1C #### [facility] ([id number]) [address] [address] Platelets (Bld) [#/Vol] 192 10*3/uL Normal 150-450 [facility] Comment on above: Performed By: #### P INR, 41791-8, 79840-7, CBCA, 06377-6, CMP, 4548-4, 6873-4 #### [facility] ([id number]) [address] [place] [address] 20603 #### HA1C #### [facility] ([id number]) [address] [place] [address] RBC COUNT 5.08 X10E12/L Normal 4.10-5.70 [facility] Comment on above: Performed By: #### P INR, 59808-9, 27083-2, CBCA, 13897-3, CMP, 4548-4, 6873-4 #### [facility] ([id number]) [address] [place] [address] 12692 #### HA1C #### [facility] ([id number]) [address], [address] [place] [address] WBC (Bld) [#/Vol] 3.6 10*3/uL Low 4.0-11.0 [facility] Comment on above: Performed By: #### P INR, 98202-0, 83753-3, CBCA, 57702-4, CMP, 4548-4, 6873-4 #### [facility] ([id number]) [address] [place] [address] #### HA1C #### [facility] ([id number]) [address], [address] [place] [address] COMPREHENSIVE METABOLIC PANE [place] 10-27-2023 Albumin [Mass/Vol] 4.0 g/dL Normal 3.2-5.3 [facility] Comment on above: Performed By: #### P INR, 04907-9, 71161-2, CBCA, 65649-0, CMP, 4548-4, 6873-4 #### [facility] ([id number]) [address] [place] [address] #### HA1C #### [facility] ([id number]) [address], [address] [place] [address] ALP [Catalytic activity/Vol] 65 U/L Normal 39-130 [facility] Comment on above: Performed By: #### P INR, 01735-0, 07919-3, CBCA, 16733-0, CMP, 4548-4, 6873-4 #### [facility] ([id number]) [address] [place] [address] #### HA1C #### [facility] ([id number]) [address], [address] [place] [address] ALT [Catalytic activity/Vol] 21 U/L Normal 0-40 [facility] Comment on above: Performed By: #### P INR, 58574-6, 15029-7, CBCA, 80647-3, CMP, 4548-4, 6873-4 #### [facility] ([id number]) [address] [place] [address] #### HA1C #### [facility] ([id number]) [address] [facility], [address] [place] [address] Anion gap [Moles/Vol] 4 mmol/L Low 5-15 [facility] Comment on above: Performed By: #### P INR, 78838-7, 81569-1, CBCA, 24739-9, CMP, 4548-4, 6873-4 #### [facility] ([id number]) [address] [place] [address] #### HA1C #### [facility] ([id number]) [address], [address] [place] [address] AST [Catalytic activity/Vol] 17 U/L Normal 0-41 [facility] Comment on above: Performed By: #### P INR, 76537-5, 54400-7, CBCA, 54047-6, CMP, 4548-4, 6873-4 #### [facility] ([id number]) [address] [place] [address] #### HA1C #### [facility] ([id number]) [address], [address] [place] [address] Bilirubin [Mass/Vol] 1.1 mg/dL Normal 0.3-1.2 [facility] Comment on above: Performed By: #### P INR, 40433-3, 18793-4, CBCA, 12120-2, CMP, 4548-4, 6873-4 #### [facility] ([id number]) [address] [place] [address] #### HA1C #### [facility] ([id number]) [address], [address] [place] [address] Calcium [Mass/Vol] 8.3 mg/dL Low 8.5-10.5 [facility] Comment on above: Performed By: #### P INR, 64500-4, 71722-0, CBCA, 80941-7, CMP, 4548-4, 6873-4 #### [facility] ([id number]) [address] [place] [address] #### HA1C #### [facility] ([id number]) [address], [address] [place] [address] Chloride [Moles/Vol] 101 mmol/L Normal 98-109 [facility] Comment on above: Performed By: #### P INR, 28057-3, 04841-5, CBCA, 43632-2, CMP, 4548-4, 6873-4 #### [facility] ([id number]) [address] [place] [address] #### HA1C #### [facility] ([id number]) [address], [address] [place] [address] CO2 [Moles/Vol] 24 mmol/L Normal 22-32 [facility] Comment on above: Performed By: #### P INR, 36581-8, 41756-6, CBCA, 80263-0, CMP, 4548-4, 6873-4 #### [facility] ([id number]) [address] [place] [address] #### HA1C #### [facility] ([id number]) [address], [address] [place] [address] Creatinine [Mass/Vol] 0.75 mg/dL Normal 0.70-1.20 [facility] Comment on above: Result Comment: METH OD TRACEABLE TO IDMS STANDARD Performed By: #### P INR, 99446-0, 50590-3, CBCA, 32826-6, CMP, 4548-4, 6873-4 #### [facility] ([id number]) [address] [place] [address] 67515 #### HA1C #### [facility] ([id number]) [address] [facility], [facility] [address] [place] [address] eGFR (CKD-EPI) NON-RACE DEPENDENT >90 Normal >59 [facility] Comment on above: Result Comment: Reported eGFR is based on the CKD-EPI 2020 equation that does not use a race coefficient. Performed By: #### P INR, 52729-3, 84452-1, CBCA, 30756-0, CMP, 4548-4, 6873-4 #### [facility] ([id number]) [address] [place] [address] 75810 #### HA1C #### [facility] ([id number]) [address] [place] [address] Glucose [Mass/Vol] 272 mg/dL High 65-99 [facility] Comment on above: Performed By: #### P INR, 38234-3, 37365-1, CBCA, 18519-0, CMP, 4548-4, 6873-4 #### [facility] ([id number]) [address] [place] [address] 49353 #### HA1C #### [facility] ([id number]) [address], [address] [place] [address] Potassium [Moles/Vol] 4.1 mmol/L Normal 3.5-5.0 [facility] Comment on above: Performed By: #### P INR, 18568-9, 41194-4, CBCA, 64858-4, CMP, 4548-4, 6873-4 #### [facility] ([id number]) [address] [place] [address] 59947 #### HA1C #### [facility] ([id number]) [address], [address] [place] [address] Protein [Mass/Vol] 6.4 g/dL Normal 6.0-8.0 [facility] Comment on above: Performed By: #### P INR, 69430-0, 70000-4, CBCA, 14815-1, CMP, 4548-4, 6873-4 #### [facility] ([id number]) [address] [place] [address] 75237 #### HA1C #### [facility] ([id number]) [address], [address] [place] [address] Sodium [Moles/Vol] 129 mmol/L Low 134-146 [facility] Comment on above: Performed By: #### P INR, 96604-9, 77809-2, CBCA, 04921-8, CMP, 4548-4, 6873-4 #### [facility] ([id number]) [address] [place] [address] 23581 #### HA1C #### [facility] ([id number]) [address], [address] [place] [address] Urea nitrogen [Mass/Vol] 20 mg/dL Normal 5-27 [facility] Comment on above: Performed By: #### P INR, 78144-8, 49674-9, CBCA, 39366-5, CMP, 4548-4, 6873-4 #### [facility] ([id number]) [address] [place] [address] 76008 #### HA1C #### [facility] ([id number]) [address], [address] [place] [address] Glucose Glucometer (BldC) [M ass/Vol]on 10-27-2023 Glucose [Mass/Vol] 293 mg/dL High 65-99 [facility] Glucose [Mass/Vol] 311 mg/dL High 65-99 [facility] Glucose [Mass/Vol] 270 mg/dL High 65-99 [facility] Glucose [Mass/Vol] 280 mg/dL High 65-99 [facility] Glucose [Mass/Vol] 260 mg/dL High 65-99 [facility] MAGNESIUMon 10-27-2023 Magnesium [Mass/Vol] 2.2 mg/dL Normal 1.8-2.6 [facility] Comment on above: Performed By: #### P INR, 59797-1, 09998-1, CBCA, 98070-8, CMP, 4548-4, 6873-4 #### [facility] ([id number]) [address] [place] [address] 44153 #### HA1C #### [facility] ([id number]) [address], [address] [place] [address] Beta hydroxybutyrate [Moles/ Vol]on 10-26-2023 BetaHydroxybutyrate 1.69 mmol/L High 0.02-0.27 [facility] Comment on above: Performed By: #### P INR, 35360-6, 39116-6, CBCA, 63155-5, CMP, 4548-4, 6873-4 #### [facility] ([id number]) [address] [place] [address] 11363 #### HA1C #### [facility] ([id number]) [address], [address] [place] [address] CBC AND AUTO DIFFon 10-26-20 23 ABSOLUTE BASOPHIL 0.0 X10E9/L Normal 0.0-0.2 [facility] Comment on above: Performed By: #### P INR, 64063-6, 52471-8, CBCA, 80413-1, CMP, 4548-4, 6873-4 #### [facility] ([id number]) [address] [place] [address] 77871 #### HA1C #### [facility] ([id number]) [address] [facility], [address] [place] [address] ABSOLUTE NEUTROPHIL 2.5 X10E9/L Normal 1.5-6.6 [facility] Comment on above: Performed By: #### P INR, 28088-8, 39600-8, CBCA, 71546-9, CMP, 4548-4, 6873-4 #### [facility] ([id number]) [address] [place] [address] 47179 #### HA1C #### [facility] ([id number]) [address] [facility], [address] [place] [address] Basophils/100 WBC (Bld) 1.0 % Normal [facility] Comment on above: Performed By: #### P INR, 66636-8, 28291-9, CBCA, 51696-3, CMP, 4548-4, 6873-4 #### [facility] ([id number]) [address] [place] [address] 51253 #### HA1C #### [facility] ([id number]) [address] [facility], [address] [place] [address] Eosinophils (Bld) [#/Vol] 0.1 10*3/uL Normal 0.0-0.4 [facility] Comment on above: Performed By: #### P INR, 73453-1, 29665-5, CBCA, 59135-6, CMP, 4548-4, 6873-4 #### [facility] ([id number]) [address] [place] [address] 53720 #### HA1C #### [facility] ([id number]) [address], [address] [place] [address] Eosinophils/100 WBC (Bld) 1.2 % Normal [facility] Comment on above: Performed By: #### P INR, 89266-5, 00102-7, CBCA, 76643-7, CMP, 4548-4, 6873-4 #### [facility] ([id number]) [address] [place] [address] 93746 #### HA1C #### [facility] ([id number]) [address] [facility], [address] [address] Erythrocyte distribution width (RBC) [Ratio] 13.4 % Normal 11.5-15.0 [facility] Comment on above: Performed By: #### P INR, 16805-7, 70719-5, CBCA, 61255-4, CMP, 4548-4, 6873-4 #### [facility] ([id number]) [address] [place] [address] 58557 #### HA1C #### [facility] ([id number]) [address], [facility] [address] [place] [address] Hematocrit (Bld) [Volume fraction] 46.5 % Normal 39-49 [facility] Comment on above: Performed By: #### P INR, 03205-8, 43417-2, CBCA, 72171-0, CMP, 4548-4, 6873-4 #### [facility] ([id number]) [address] [place] [address] 93493 #### HA1C #### [facility] ([id number]) [address], [address] [place] [address] Hemoglobin (Bld) [Mass/Vol] 16.0 g/dL Normal 13.0-17.0 [facility] Comment on above: Performed By: #### P INR, 35865-8, 50318-7, CBCA, 29221-0, CMP, 4548-4, 6873-4 #### [facility] ([id number]) [address] [place] [address] 81724 #### HA1C #### [facility] ([id number]) [address], [address] [place] [address] Lymphocytes (Bld) [#/Vol] 1.4 10*3/uL Normal 1.0-3.5 [facility] Comment on above: Performed By: #### P INR, 73656-0, 34651-3, CBCA, 06128-9, CMP, 4548-4, 6873-4 #### [facility] ([id number]) [address] [place] [address] 13704 #### HA1C #### [facility] ([id number]) [address] [facility], [address] [place] [address] Lymphocytes/100 WBC (Bld) 31.7 % Normal [facility] Comment on above: Performed By: #### P INR, 36736-8, 49585-5, CBCA, 24992-7, CMP, 4548-4, 6873-4 #### [facility] ([id number]) [address] [place] [address] 07926 #### HA1C #### [facility] ([id number]) [address] [facility], [address] [place] [address] MCH (RBC) [Entitic mass] 29.6 pg Normal 27-34 [facility] Comment on above: Performed By: #### P INR, 44352-5, 66464-9, CBCA, 57436-2, CMP, 4548-4, 6873-4 #### [facility] ([id number]) [address] [place] [address] #### HA1C #### [facility] ([id number]) [address], [address] [place] [address] MCHC (RBC) [Mass/Vol] 34.4 g/dL Normal 32-36 [facility] Comment on above: Performed By: #### P INR, 16731-4, 52187-9, CBCA, 47711-5, CMP, 4548-4, 6873-4 #### [facility] ([id number]) [address] [place] [address] 43554 #### HA1C #### [facility] ([id number]) [address], [address] [place] [address] MCV (RBC) [Entitic vol] 86 fL Normal 80-100 [facility] Comment on above: Performed By: #### P INR, 53275-7, 41121-2, CBCA, 41032-9, CMP, 4548-4, 6873-4 #### [facility] ([id number]) [address] [place] [address] 98791 #### HA1C #### [facility] ([id number]) [address], [address] [place] [address] Monocytes (Bld) [#/Vol] 0.3 10*3/uL Normal 0-0.9 [facility] Comment on above: Performed By: #### P INR, 85428-2, 11274-6, CBCA, 45612-5, CMP, 4548-4, 6873-4 #### [facility] ([id number]) [address] [place] [address] 74529 #### HA1C #### [facility] ([id number]) [address], [address] [place] [address] Monocytes/100 WBC (Bld) 7.3 % Normal [facility] Comment on above: Performed By: #### P INR, 05842-6, 56144-9, CBCA, 50471-8, CMP, 4548-4, 6873-4 #### [facility] ([id number]) [address] [place] [address] 33934 #### HA1C #### [facility] ([id number]) [address], [address] [place] [address] Neutrophils/100 WBC (Bld) 58.8 % Normal [facility] Comment on above: Performed By: #### P INR, 91085-4, 16214-4, CBCA, 65940-5, CMP, 4548-4, 6873-4 #### [facility] ([id number]) [address] [place] [address] 91217 #### HA1C #### [facility] ([id number]) [address], [address] [place] [address] Platelet mean volume (Bld) [Entitic vol] 8.0 fL Normal 7-12 [facility] Comment on above: Performed By: #### P INR, 95402-4, 64730-3, CBCA, 04443-0, CMP, 4548-4, 6873-4 #### [facility] ([id number]) [address] [place] [address] 92730 #### HA1C #### [facility] ([id number]) [address], [address] [place] [address] Platelets (Bld) [#/Vol] 219 10*3/uL Normal 150-450 [facility] Comment on above: Performed By: #### P INR, 00928-8, 11273-9, CBCA, 65762-9, CMP, 4548-4, 6873-4 #### [facility] ([id number]) [address] [place] [address] 52536 #### HA1C #### [facility] ([id number]) [address], [address] [place] [address] RBC COUNT 5.41 X10E12/L Normal 4.10-5.70 [facility] Comment on above: Performed By: #### P INR, 30499-6, 05716-4, CBCA, 81077-5, CMP, 4548-4, 6873-4 #### [facility] ([id number]) [address] [place] [address] 51396 #### HA1C #### [facility] ([id number]) [address], [address] [place] [address] WBC (Bld) [#/Vol] 4.3 10*3/uL Normal 4.0-11.0 [facility] Comment on above: Performed By: #### P INR, 67255-3, 55046-6, CBCA, 03194-0, CMP, 4548-4, 6873-4 #### [facility] ([id number]) [address] [place] [address] 39783 #### HA1C #### [facility] ([id number]) [address], [address] [place] [address] COMPREHENSIVE METABOLIC PANE [place] 10-26-2023 Albumin [Mass/Vol] 4.3 g/dL Normal 3.2-5.3 [facility] Comment on above: Performed By: #### P INR, 43804-8, 98828-7, CBCA, 86242-0, CMP, 4548-4, 6873-4 #### [facility] ([id number]) [address] [place] [address] 51968 #### HA1C #### [facility] ([id number]) [address], [address] [place] [address] ALP [Catalytic activity/Vol] 73 U/L Normal 39-130 [facility] Comment on above: Performed By: #### P INR, 54341-9, 91676-6, CBCA, 14152-7, CMP, 4548-4, 6873-4 #### [facility] ([id number]) [address] [place] [address] 98651 #### HA1C #### [facility] ([id number]) [address], [address] [place] [address] ALT [Catalytic activity/Vol] 25 U/L Normal 0-40 [facility] Comment on above: Performed By: #### P INR, 40199-9, 90451-3, CBCA, 20401-9, CMP, 4548-4, 6873-4 #### [facility] ([id number]) [address] [place] [address] 08369 #### HA1C #### [facility] ([id number]) [address] [facility], [address] [place] [address] Anion gap [Moles/Vol] 10 mmol/L Normal 5-15 [facility] Comment on above: Performed By: #### P INR, 88331-3, 34102-6, CBCA, 05710-0, CMP, 4548-4, 6873-4 #### [facility] ([id number]) [address] [place] [address] 34933 #### HA1C #### [facility] ([id number]) [address], [address] [place] [address] AST [Catalytic activity/Vol] 19 U/L Normal 0-41 [facility] Comment on above: Performed By: #### P INR, 47004-9, 78240-5, CBCA, 01651-7, CMP, 4548-4, 6873-4 #### [facility] ([id number]) [address] [place] [address] 48971 #### HA1C #### [facility] ([id number]) [address], [address] [place] [address] Bilirubin [Mass/Vol] 0.8 mg/dL Normal 0.3-1.2 [facility] Comment on above: Performed By: #### P INR, 11070-2, 79491-3, CBCA, 26602-1, CMP, 4548-4, 6873-4 #### [facility] ([id number]) [address] [place] [address] 31516 #### HA1C #### [facility] ([id number]) [address] [facility], [address] [place] [address] Calcium [Mass/Vol] 9.3 mg/dL Normal 8.5-10.5 [facility] Comment on above: Performed By: #### P INR, 02309-5, 28021-9, CBCA, 11215-3, CMP, 4548-4, 6873-4 #### [facility] ([id number]) [address] [place] [address] 02828 #### HA1C #### [facility] ([id number]) [address] [place] [address] Chloride [Moles/Vol] 94 mmol/L Low 98-109 [facility] Comment on above: Performed By: #### P INR, 65567-7, 97721-3, CBCA, 95649-7, CMP, 4548-4, 6873-4 #### [facility] ([id number]) [address] [place] [address] 01184 #### HA1C #### [facility] ([id number]) [address], [address] [place] [address] CO2 [Moles/Vol] 26 mmol/L Normal 22-32 [facility] Comment on above: Performed By: #### P INR, 92400-5, 75028-5, CBCA, 68195-2, CMP, 4548-4, 6873-4 #### [facility] ([id number]) [address] [place] [address] 28598 #### HA1C #### [facility] ([id number]) [address] [facility], [address] [place] [address] Creatinine [Mass/Vol] 1.06 mg/dL Normal 0.70-1.20 [facility] Comment on above: Result Comment: METH OD TRACEABLE TO IDMS STANDARD Performed By: #### P INR, 36242-8, 41495-9, CBCA, 60407-8, CMP, 4548-4, 6873-4 #### [facility] ([id number]) [address] [place] [address] 87938 #### HA1C #### [facility] ([id number]) [address] [facility], [address] [place] [address] GFR/1.73 sq M.predicted among non-blacks MDRD (S/P/Bld) [Vol rate/Area] 75 mL/min/{1.73_m2} Normal >59 [facility] Comment on above: Result Comment: Reported eGFR is based on the CKD-EPI 2020 equation that does not use a race coefficient. Performed By: #### P INR, 48546-2, 33598-0, CBCA, 90870-2, CMP, 4548-4, 6873-4 #### [facility] ([id number]) [address] [place] [address] 54858 #### HA1C #### [facility] ([id number]) [address] [facility], [address] [place] [address] Glucose [Mass/Vol] 453 mg/dL Critically high 65-99 [facility] Comment on above: Performed By: #### P INR, 74417-9, 46193-4, CBCA, 83570-7, CMP, 4548-4, 6873-4 #### [facility] ([id number]) [address] [place] [address] 71077 #### HA1C #### [facility] ([id number]) [address], [address] [place] [address] Potassium [Moles/Vol] 4.5 mmol/L Normal 3.5-5.0 [facility] Comment on above: Performed By: #### P INR, 25564-1, 78518-4, CBCA, 61217-8, CMP, 4548-4, 6873-4 #### [facility] ([id number]) [address] [place] [address] 23200 #### HA1C #### [facility] ([id number]) [address] [place] [address] Protein [Mass/Vol] 7.2 g/dL Normal 6.0-8.0 [facility] Comment on above: Performed By: #### P INR, 18646-8, 38827-8, CBCA, 54304-9, CMP, 4548-4, 6873-4 #### [facility] ([id number]) [address] [place] [address] 81265 #### HA1C #### [facility] ([id number]) [address], [address] [place] [address] Sodium [Moles/Vol] 130 mmol/L Low 134-146 [facility] Comment on above: Performed By: #### P INR, 00054-2, 18294-1, CBCA, 57666-0, CMP, 4548-4, 6873-4 #### [facility] ([id number]) [address] [place] [address] 85270 #### HA1C #### [facility] ([id number]) [address], [address] [place] [address] Urea nitrogen [Mass/Vol] 29 mg/dL High 5-27 [facility] Comment on above: Performed By: #### P INR, 81215-4, 94973-1, CBCA, 31703-5, CMP, 4548-4, 6873-4 #### [facility] ([id number]) [address] [facility] [place] [address] #### HA1C #### [facility] ([id number]) [address] [facility], [address] [place] [address] CT [address]RAIN [address] CONT[address] BRAIN WO [...] Denney MD on 10/26/2023 6:42 PM Normal [facility] DRUG SCREEN, URINEon 023 AMPHETAMINE/METHAMP Negative Normal NEG [facility] Comment on above: Result Comment: AMPH /METH screening cut off = 1000 ng/mL Performed By: #### P INR, 26157-9, 88956-5, CBCA, 36687-7, CMP, 4548-4, 6873-4 #### [facility] ([id number]) [address] [place] [address] 26419 #### HA1C #### [facility] ([id number]) [address] [place] [address] BARBITURATES Negative Normal NEG [facility] Comment on above: Result Comment: Elsie iturates screening cut off value = 200 ng/mL Performed By: #### P INR, 34747-6, 97856-5, CBCA, 73960-5, CMP, 4548-4, 6873-4 #### [facility] ([id number]) [address] [place] [address] 53478 #### HA1C #### [facility] ([id number]) [address] [place] [address] BENZODIAZEPINES Negative Normal NEG [facility] Comment on above: Result Comment: James odiazepines screening cut off value = 200 ng/mL Performed By: #### P INR, 42727-6, 79041-3, CBCA, 75481-8, CMP, 4548-4, 6873-4 #### [facility] ([id number]) [address] [place] [address] 00717 #### HA1C #### [facility] ([id number]) [address] [place] [address] CANNABINOIDS Negative Normal NEG [facility] Comment on above: Result Comment: Shawn abinoids/THC screening cut off value = 50 ng/mL Performed By: #### P INR, 19651-2, 83444-1, CBCA, 28695-6, CMP, 4548-4, 6873-4 #### [facility] ([id number]) [address] [place] [address] 91288 #### HA1C #### [facility] ([id number]) [address] [place] [address] COCAINE METABOLITE Negative Normal NEG [facility] Comment on above: Result Comment: Coca ine screening cut off value = 300 ng/mL Performed By: #### P INR, 78812-2, 99817-5, CBCA, 77719-2, CMP, 4548-4, 6873-4 #### [facility] ([id number]) [address] [place] [address] 02944 #### HA1C #### [facility] ([id number]) [address] [facility], [address] [place] [address] ECSTASY Negative Normal NEG [facility] Comment on above: Result Comment: Ecst asy screening cut off value = 500 ng/mL This report is intended for use in clinical monitoring or management of patients. Performed By: #### P INR, 30393-3, 38499-2, CBCA, 20817-8, CMP, 4548-4, 6873-4 #### [facility] ([id number]) [address] [place] [address] 74376 #### HA1C #### [facility] ([id number]) [address] [facility], [address] [place] [address] METHADONE Negative Normal NEG [facility] Comment on above: Result Comment: Meth adone screening cut off value = 300 ng/mL. Performed By: #### P INR, 76004-7, 15598-8, CBCA, 95349-0, CMP, 4548-4, 6873-4 #### [facility] ([id number]) [address] [place] [address] 15949 #### HA1C #### [facility] ([id number]) [address] [facility], [address] [place] [address] OPIATES Negative Normal NEG [facility] Comment on above: Result Comment: Opia yanira screening cut off value = 300 ng/mL NOTE: This test is used for the detection of codeine, hydrocodone (>1000 ng/mL), morphine and hydromorphone (>900 ng/mL) in urine. Performed By: #### P INR, 32468-6, 25451-8, CBCA, 69745-8, CMP, 4548-4, 6873-4 #### [facility] ([id number]) [address] [place] [address] #### HA1C #### [facility] ([id number]) [address], [address] [place] [address] OXYCODONE Negative Normal NEG [facility] Comment on above: Result Comment: Oxyc odone screening cut off value = 300 ng/mL NOTE: This test is used for the detection of oxycodone and oxymorphone in urine. Performed By: #### P INR, 84682-0, 52890-3, CBCA, 45015-3, CMP, 4548-4, 6873-4 #### [facility] ([id number]) [address] [place] [address] #### HA1C #### [facility] ([id number]) [address], [address] [place] [address] PHENCYCLIDINE Negative Normal NEG [facility] Comment on above: Result Comment: Phen cyclidine screening cut off value = 25 ng/mL Performed By: #### P INR, 03619-9, 86040-8, CBCA, 79394-3, CMP, 4548-4, 6873-4 #### [facility] ([id number]) [address] [place] [address] #### HA1C #### [facility] ([id number]) [address], [address] [place] [address] Glucose Glucometer (BldC) [M ass/Vol]on 10-26-2023 Glucose [Mass/Vol] 286 mg/dL High 65-99 [facility] Glucose [Mass/Vol] 385 mg/dL High 65-99 [facility] HA1C CONFIRMATION - NO CHARG Ian 10-26-2023 HbA1c (Bld) [Mass fraction] 15.3 % High <=5.6 [facility] Comment on above: Result Comment: NOTE INTERPRETIVE INFORMATION: Hemoglobin A1c HbA1c values of 5.7-6.4 percent indicate an increased risk for developing diabetes mellitus. HbA1c values greater than or equal to 6.5 percent are diagnostic of diabetes mellitus. For diagnosis of diabetes in individuals without unequivocal hyperglycemia, results should be confirmed by repeat testing. Performed By: #### P INR, 54537-7, 17462-5, CBCA, 86854-2, CMP, 4548-4, 6873-4 #### [facility] ([id number]) [address] [place] [address] #### HA1C #### [facility] ([id number]) [address] [place] [address], [address] [place] [address] HGB A1C (GLYCO-HGB)on 2022 AVERAGE GLUCOSE >398 Normal [facility] Comment on above: Performed By: #### P INR, 41079-5, 38098-3, CBCA, 53040-7, CMP, 4548-4, 6873-4 #### [facility] ([id number]) [address] [place] [address] #### HA1C #### [facility] ([id number]) [address] [facility] [facility], [address] [place] [address] HbA1c (Bld) [Mass fraction] % High 4.4-5.6 [facility] Comment on above: Result Comment: NOTE ADA Guidelines Result HgbA1c Normal : less than 5.7 % Prediabetes : 5.7 % to 6.4 % Diabetes : > 6.4 % Use with caution in patients with abnormal hemoglobin variants as the half-life of red blood cells and in vivo glycation rates are affected. Performed By: #### P INR, 35912-4, 89296-4, CBCA, 17130-1, CMP, 4548-4, 6873-4 #### [facility] ([id number]) [address] [place] [address] #### HA1C #### [facility] ([id number]) [address], [address] [place] [address] HbA1c (Bld) [Mass fraction]o n 10-26-2023 Glucose [Mass/Vol] 392 mg/dL Normal [facility] Comment on above: Result Comment: NOTE Performed By: [email or web address] [address] [place] [address] [employer] Tender: Aramis Taylor MD, PhD CLIA Number: [id number] Performed By: #### P INR, 33036-1, 66030-9, CBCA, 14837-2, CMP, 4548-4, 6873-4 #### [facility] ([id number]) [address] [place] [address] #### HA1C #### [facility] ([id number]) [address], [address] [place] [address] MAGNESIUMon 10-26-2023 Magnesium [Mass/Vol] 1.6 mg/dL Low 1.8-2.6 [facility] Comment on above: Performed By: #### P INR, 64166-1, 40831-1, CBCA, 25016-5, CMP, 4548-4, 6873-4 #### [facility] ([id number]) [address] [place] [address] #### HA1C #### [facility] ([id number]) [address], [address] [place] [address] PROTIME AND INRon 10-26-2023 INR Coag (PPP) [Relative time] 1.0 {INR} Normal 0.8-1.1 [facility] Comment on above: Performed By: #### P INR, 86463-4, 51071-9, CBCA, 29439-3, CMP, 4548-4, 6873-4 #### [facility] ([id number]) [address] [place] [address] #### HA1C #### [facility] ([id number]) [address] [facility] [facility], [address] [place] [address] PT Coag (PPP) [Time] 11.4 s Normal 9.8-13.2 [facility] Comment on above: Result Comment: NEW REFERENCE RANGE Performed By: #### P INR, 73288-1, 91649-7, CBCA, 94860-7, CMP, 4548-4, 6873-4 #### [facility] ([id number]) [address] [place] [address] #### HA1C #### [facility] ([id number]) [address] [place] [address], [address] [place] [address] TROPONIN Ion 10-26-2023 Troponin I.cardiac [Mass/Vol] 0.01 ng/mL Normal 0.00-0.04 [facility] Comment on above: Performed By: #### P INR, 22787-8, 56546-4, CBCA, 20127-5, CMP, 4548-4, 6873-4 #### [facility] ([id number]) [address] [place] [address] #### HA1C #### [facility] ([id number]) [address] [place] [address], [address] [place] [address] URN MACROSCOPIC NURon 2022 BILIRUBIN ALLYN Negative Normal NEG [facility] Comment on above: Performed By: #### P INR, 57426-3, 03294-1, CBCA, 38350-4, CMP, 4548-4, 6873-4 #### [facility] ([id number]) [address] [place] [address] #### HA1C #### [facility] ([id number]) [address], [address] [place] [address] BLOOD/HGB ALLYN Trace Abnormal NEG [facility] Comment on above: Performed By: #### P INR, 34682-9, 96935-5, CBCA, 19003-3, CMP, 4548-4, 6873-4 #### [facility] ([id number]) [address] [place] [address] #### HA1C #### [facility] ([id number]) [address] [place] [address] GLUCOSE ALLYN >=1000 Abnormal NEG [facility] Comment on above: Performed By: #### P INR, 10335-3, 02366-7, CBCA, 55499-2, CMP, 4548-4, 6873-4 #### [facility] ([id number]) [address] [place] [address] #### HA1C #### [facility] ([id number]) [address], [address] [place] [address] KETONES ALLYN 40 mg/dL Abnormal NEG [facility] Comment on above: Performed By: #### P INR, 69330-5, 80239-2, CBCA, 50499-1, CMP, 4548-4, 6873-4 #### [facility] ([id number]) [address] [place] [address]56 #### HA1C #### [facility] ([id number]) [address], [address] [place] [address] LEUKOCYTE ESTERASE ALLYN Negative Normal NEG [facility] Comment on above: Performed By: #### P INR, 69589-6, 11888-6, CBCA, 29821-7, CMP, 4548-4, 6873-4 #### [facility] ([id number]) [address] [place] [address] #### HA1C #### [facility] ([id number]) [address], [address] [place] [address] NITRITE ALLYN Negative Normal NEG [facility] Comment on above: Performed By: #### P INR, 78639-8, 64131-8, CBCA, 84187-4, CMP, 4548-4, 6873-4 #### [facility] ([id number]) [address] [place] [address]1995 #### HA1C #### [facility] ([id number]) [address] [address], [address] [place] [address] PH ALLYN 5.5 Normal 5.0-8.5 [facility] Comment on above: Performed By: #### P INR, 45511-6, 98873-2, CBCA, 99666-5, CMP, 4548-4, 6873-4 #### [facility] ([id number]) [address] [place] [address] #### HA1C #### [facility] ([id number]) [address] [address], [address] [place] [address] PROTEIN ALLYN Negative Normal NEG [facility] Comment on above: Performed By: #### P INR, 51936-8, 90669-3, CBCA, 00601-2, CMP, 4548-4, 6873-4 #### [facility] ([id number]) [address] [place] [address] #### HA1C #### [facility] ([id number]) [address] [address], [address] [place] [address] SPECIFIC GRAVITY ALLYN 1.010 Normal 1.003-1 .03 5 [facility] Comment on above: Performed By: #### P INR, 99413-0, 34631-9, CBCA, 82043-5, CMP, 4548-4, 6873-4 #### [facility] ([id number]) [address] [place] [address]23 #### HA1C #### [facility] ([id number]) [address] [facility] [facility], [address] [place] [address] UROBILINOGEN ALLYN 0.2 eu/dL Normal <1.1 [facility] Comment on above: Performed By: #### P INR, 23665-0, 95181-1, CBCA, 34175-9, CMP, 4548-4, 6873-4 #### [facility] ([id number]) [address] [place] [address]645 #### HA1C #### [facility] ([id number]) [facility] [address], [address] [place] [address] VENOUS BLOOD GASon 3 MICHELLE'S TEST Normal [facility] Comment on above: Performed By: #### V BG #### [facility] ([id number]) [address] [place] [address] Base excess Calc (Bld) [Moles/Vol] 0.0 mmol/L Normal 0.0-2.0 [facility] Comment on above: Performed By: #### V BG #### [facility] ([id number]) [address] [place] [address] Body temperature 98.6 [degF] Normal 37.0 [facility] Comment on above: Performed By: #### V BG #### [facility] ([id number]) [address] [place] [address] HCO3 (Bld) [Moles/Vol] 25.3 mmol/L High 20.0-24.0 P [facility] Comment on above: Performed By: #### V BG #### [facility] ([id number]) [address] [place] [address] Oxygen saturation in Blood 73.0 % Low >80.0 [facility] Comment on above: Performed By: #### V BG #### [facility] ([id number]) [address] [place] [address] [place] [address] OXYGEN SOURCE [employer] Normal [facility] Comment on above: Performed By: #### V BG #### [facility] ([id number]) [address] [place] [address] PCO2, VENOUS 41.3 MMHG Normal 35-50 [facility] Comment on above: Performed By: #### V BG #### [facility] ([id number]) [address] [place] [address] [place] [address] PH, VENOUS 7.396 Normal 7.320-7.42 0 [facility] Comment on above: Performed By: #### V BG #### [facility] ([id number]) [address] [place] [address] PO2, VENOUS 39 MMHG Normal 30-50 [facility] Comment on above: Performed By: #### V BG #### [facility] ([id number]) [address] [place] [address] [place] [address] SAMPLE SITE N/A Normal [facility] Comment on above: Performed By: #### V BG #### [facility] ([id number]) [address] [place] [address] [place] [address] SAMPLE TYPE VENOUS Normal [facility] Comment on above: Performed By: #### V BG #### [facility] ([id number]) [address] [place] [address] [place] [address] XR CHEST 1 VWon 10-26-2023 XR CHEST [...] Keyes MD on 10/26/2023 6:36 PM Normal [facility] aPTT Coag (PPP) [Time]on aPTT Coag (Bld) [Time] 34 s Normal 26-37 [facility] Comment on above: Result Comment: NEW REFERENCE RANGE Performed By: #### P INR, 77311-7, 38707-1, CBCA, 46707-9, CMP, 4548-4, 6873-4 #### [facility] ([id number]) [address] [place] [address], [place] [address] #### HA1C #### [facility] ([id number]) [address] [facility], [address] [place] [address] Vital Signs Date Time Vital Sign Value Performing Clinician Facility 06-28-2025 13:57-0400 Diastolic blood pressure 64 mm[Hg] Eleazar Ball DO Work Phone: [facility] 06-28-2025 13:57-0400 Heart rate 62 /min Eleazar Ball DO Work Phone: [facility] 06-28-2025 13:57-0400 Systolic blood pressure 121 mm[Hg] Eleazar Ball DO Work Phone: [facility] 12-28-2024 08:28-0500 Body height 177.8 cm Mri (Istat/1.5t) Work Phone: [facility] 12-28-2024 08:28-0500 Body mass index (BMI) [Ratio] 27.26 kg/m2 Mri (Istat/1.5t) Work Phone: [facility] 12-28-2024 08:28-0500 Body weight 86.18 kg Mri (Istat/1.5t) Work Phone: [facility] 11-02-2024 09:30-0500 Diastolic blood pressure 52 mm[Hg] Sarah Villareal MD Work Phone: [facility] 11-02-2024 09:30-0500 Heart rate 61 /min Sarah Villareal MD Work Phone: [facility] 11-02-2024 09:30-0500 Systolic blood pressure 88 mm[Hg] Sarah Villareal MD Work Phone: [facility] 10-25-2024 11:19-0500 Blood Pressure Location JARO[facility] NKANSAH-AMANKRA [facility] 10-25-2024 11:19-0500 Diastolic blood pressure 70 mm[Hg] [facility] NKANSAH-AMANKRA [facility] 10-25-2024 11:19-0500 Heart rate 72 /min JAR[facility]CHO NKANSAH-AMANKRA [facility] 10-25-2024 11:19-0500 Systolic blood pressure 123 mm[Hg] JAROCHO NKANSAH-AMANKRA [facility] 10-12-2024 15:50-0500 Body temperature 97.5 [degF] Eleazar Ball DO Work Phone: [facility] 10-12-2024 15:50-0500 Diastolic blood pressure 68 mm[Hg] Eleazar Ball DO Work Phone: [facility] 10-12-2024 15:50-0500 Heart rate 61 /min Eleazar Ball DO Work Phone: [facility] 10-12-2024 15:50-0500 Respiratory rate 16 /min Eleazar Ball DO Work Phone: [facility] 10-12-2024 15:50-0500 SaO2% (BldA) [Mass fraction] 97 % Eleazar Ball DO Work Phone: [facility] 10-12-2024 15:50-0500 Systolic blood pressure 128 mm[Hg] Eleazar Ball DO Work Phone: [facility] 10-12-2024 06:00-0500 Body weight 91.4 kg Eleazar Ball DO Work Phone: [facility] 10-08-2024 15:31-0500 Inhaled oxygen flow rate 6 L/min Eleazar Ball DO Work Phone: [facility] 10-07-2024 14:18-0500 Body height 177.8 cm Eleazar Ball DO Work Phone: [facility] 10-06-2024 00:00-0500 Body temperature 98.6 [degF] Gricelda Perea MD Work Phone: [facility] 10-06-2024 00:00-0500 Diastolic blood pressure 63 mm[Hg] Gricelda Perea MD Work Phone: [facility] 10-06-2024 00:00-0500 Heart rate 70 /min Gricelda Perea MD Work Phone: [facility] 10-06-2024 00:00-0500 Respiratory rate 18 /min Gricelda Perea MD Work Phone: [facility] 10-06-2024 00:00-0500 SaO2% (BldA) [Mass fraction] 94 % Gricelda Perea MD Work Phone: [facility] 10-06-2024 00:00-0500 Systolic blood pressure 117 mm[Hg] Gricelda Perea MD Work Phone: [facility] 10-05-2024 06:00-0500 Body mass index (BMI) [Ratio] 26.19 kg/m2 Gricelda Perea MD Work Phone: [facility] 10-05-2024 06:00-0500 Body weight 82.8 kg Gricelda Perea MD Work Phone: [facility] 10-02-2024 05:24-0500 Body height 177.8 cm Gricelda Perea MD Work Phone: [facility] 04-10-2024 15:38-0400 Diastolic blood pressure 59 mm[Hg] Emilia Hidalgo MD Work Phone: [facility] 04-10-2024 15:38-0400 Heart rate 85 /min Emilia Hidalgo MD Work Phone: [facility] 04-10-2024 15:38-0400 SaO2% (BldA) [Mass fraction] 97 % Emilia Hidalgo MD Work Phone: [facility] 04-10-2024 15:38-0400 Systolic blood pressure 147 mm[Hg] Emilia Hidalgo MD Work Phone: [facility] 04-10-2024 15:37-0400 Body temperature 97.7 [degF] Emilia Hidalgo MD Work Phone: [facility] 04-10-2024 15:37-0400 Respiratory rate 16 /min Emilia Hidalgo MD Work Phone: [facility] 04-10-2024 03:43-0400 Body mass index (BMI) [Ratio] 33.69 kg/m2 Emilia Hidalgo MD Work Phone: [facility] 04-10-2024 03:43-0400 Body weight 106.5 kg Emilia Hidalgo MD Work Phone: [facility] 04-09-2024 14:14-0400 Body height 177.8 cm Emilia Hidalgo MD Work Phone: [facility] 03-31-2024 10:20-0400 Body height 180.34 cm [facility] 03-31-2024 10:20-0400 Body mass index (BMI) [Ratio] 34.9 kg/m2 [facility] 03-31-2024 10:20-0400 Body weight 113.53 kg [facility] 03-31-2024 10:20-0400 Diastolic blood pressure 73 mm[Hg] [facility] 03-31-2024 10:20-0400 Heart rate 79 /min [facility] 03-31-2024 10:20-0400 Respiratory rate 16 /min [facility] 03-31-2024 10:20-0400 Systolic blood pressure 149 mm[Hg] [facility] 03-26-2024 10:56-0400 Body height 180.34 cm [facility] 03-26-2024 10:56-0400 Body mass index (BMI) [Ratio] 34.9 kg/m2 [facility] 03-26-2024 10:56-0400 Body weight 113.62 kg [facility] 03-26-2024 10:56-0400 Diastolic blood pressure 81 mm[Hg] [facility] 03-26-2024 10:56-0400 Heart rate 86 /min [facility] 03-26-2024 10:56-0400 Respiratory rate 20 /min [facility] 03-26-2024 10:56-0400 Systolic blood pressure 157 mm[Hg] [facility] 02-12-2024 09:15-0400 Body height 177.8 cm Klaus Yeboah MD Work Phone: [facility] 02-12-2024 09:15-0400 Body mass index (BMI) [Ratio] 35.01 kg/m2 Klaus Yeboah MD Work Phone: [facility] 02-12-2024 09:15-0400 Body weight 110.68 kg Klaus Yeboah MD Work Phone: [facility] 01-23-2024 10:33-0400 Body height 180.34 cm [facility] 01-23-2024 10:33-0400 Body mass index (BMI) [Ratio] 36.1 kg/m2 [facility] 01-23-2024 10:33-0400 Body weight 117.65 kg [facility] 01-23-2024 10:33-0400 Diastolic blood pressure 69 mm[Hg] [facility] 01-23-2024 10:33-0400 Heart rate 71 /min [facility] 01-23-2024 10:33-0400 Respiratory rate 20 /min [facility] 01-23-2024 10:33-0400 Systolic blood pressure 159 mm[Hg] [facility] 12-30-2023 10:35-0500 Body height 177.8 cm Klaus Yeboah MD Work Phone: [facility] 12-30-2023 10:35-0500 Body mass index (BMI) [Ratio] 35.01 kg/m2 Klaus Yeboah MD Work Phone: [facility] 12-30-2023 10:35-0500 Body weight 110.68 kg Klaus Yeboah MD Work Phone: [facility] 12-11-2023 11:41-0500 Body height 177.8 cm Nae Rojas MD Work Phone: [facility] 12-11-2023 11:41-0500 Body mass index (BMI) [Ratio] 35.01 kg/m2 Nae Rojas MD Work Phone: [facility] 12-11-2023 11:41-0500 Body weight 110.68 kg Nae Rojas MD Work Phone: [facility] 12-11-2023 11:41-0500 Diastolic blood pressure 73 mm[Hg] Nae Rojas MD Work Phone: [facility] [employer] [facility] 12-11-2023 11:41-0500 Heart rate 90 /min Nae Rojas MD Work Phone: [facility] [employer] [facility] 12-11-2023 11:41-0500 Systolic blood pressure 126 mm[Hg] Nae Rojas MD Work Phone: [facility] [employer] [facility] 11-26-2023 10:45-0500 Body height 180.34 cm Eleazar Ball Other [facility] 11-26-2023 10:45-0500 Body mass index (BMI) [Ratio] 35.31 kg/m2 Eleazar Ball Other [facility] [employer] Other 11-26-2023 10:45-0500 Body weight 114.85 kg Eleazar Ball Other [facility] [employer] Other 11-26-2023 10:45-0500 Body weight 114.84 kg [facility] 11-26-2023 10:45-0500 Diastolic blood pressure 80 mm[Hg] Eleazar Ball Other [facility] 11-26-2023 10:45-0500 Respiratory rate 16 /min Eleazar Ball Other [facility] [employer] Other 11-26-2023 10:45-0500 Systolic blood pressure 132 mm[Hg] Eleazar Ball Other [facility] Encounters Encounter Date Encounter Type Care Provider Facility Start: 10-07-2025 ambulatory MD JAROCHO POST Facility: [facility] Start: 06-28-2025 End: 06-28-2025 ambulatory Eleazar Ball DO Work Phone: [facility] Work Phone: Start: 06-28-2025 End: 06-28-2025 Patient encounter procedure Shanice Barry EP SPECIALIST [facility] Work Phone: Start: 06-23-2025 Non-patient / Non-visit Eleazar Zacarias walt [facility] Work Phone: Start: 06-12-2025 Non-patient / Non-visit Dorcas [facility] Work Phone: Start: 05-30-2025 Non-patient / Non-visit Outside [facility] Work Phone: Start: 05-19-2025 Non-patient / Non-visit Eleazar godoy [facility] Work Phone: Start: 05-09-2025 End: 05-09-2025 ambulatory MD JAROCHO POST Facility: [facility] Start: 05-09-2025 End: 05-09-2025 Patient encounter procedure JAROCHO POST [facility] Start: 05-02-2025 Non-patient / Non-visit Brenda Myrick [facility] Work Phone: Start: 04-25-2025 End: 04-28-2025 Evaluation and management of inpatient Dionte COKER Facility:[facility] Start: 04-24-2025 Emergency department patient visit Isai Mehta Facility:[facility] Start: 04-24-2025 End: 04-28-2025 Evaluation and management of inpatient Dionte COKER [facility] Start: 04-15-2025 End: 04-15-2025 ambulatory MD JAROCHO POST Facility:[facility] Start: 04-15-2025 End: 04-15-2025 Patient encounter procedure JAROCHO POST [facility] Start: 04-14-2025 Non-patient / Non-visit Eleazar Rell godoy [facility] Work Phone: Start: 01-21-2025 End: 01-21-2025 ambulatory TIMOTHY LAMCAREN [facility] Start: 01-07-2025 End: 01-07-2025 ambulatory MD JAROCHO POST Facility: [place] Start: 12-28-2024 ambulatory Facility:[facility] Start: 12-28-2024 End: 12-28-2024 Subsequent hospital visit by physician [facility] (Istat/1.5t) Work Phone: [facility] Start: 12-08-2024 End: 12-08-2024 [facility] Start: 11-08-2024 End: 11-08-2024 ambulatory MD JAROCHO POST Facility:[facility] Start: 11-08-2024 End: 11-08-2024 Patient encounter procedure JAROCHO POST [facility] Start: 11-02-2024 End: 11-02-2024 Office outpatient new 30 minutes Suellen Cooper MD PhD Work Phone: [facility] [employer] [facility] 2 Comment on above: Gallbladder polyp Start: 11-02-2024 End: 11-02-2024 Office outpatient new 45 minutes Sarah Villareal MD Work Phone: [facility] 2 Comment on above: Constipation, unspec ified constipation type (Primary Dx); Gallbladder polyp; Cerebrovascular accident (CVA), unspecified mechanism (Multi) Start: 11-02-2024 End: 11-02-2024 ambulatory SUELLEN COOPER [facility] Start: 10-28-2024 End: 10-28-2024 ambulatory Eleazar Mayorga DO Work Phone: [facility] Work Phone: Start: 10-28-2024 End: 10-28-2024 Departed Referred Eleazar Ball DO Work Phone: [facility] Start: 10-28-2024 Non-patient / Non-visit Benjam in Ball DO Work Phone: [facility] Work Phone: Start: 10-28-2024 End: 10-28-2024 ambulatory MD JAROCHO POST Facility:CD:[id number] Start: 10-25-2024 End: 10-25-2024 ambulatory MD JAROCHO POST Facility:[facility] Start: 10-25-2024 End: 10-25-2024 Patient encounter procedure JAROCHO POST [facility] Start: 10-19-2024 Non-patient / Non-visit Benjam in Ball DO Work Phone: [facility] Work Phone: Start: 10-12-2024 ambulatory MD JAROCHO POST Facility:[facility] Start: 10-12-2024 End: 10-12-2024 ambulatory Addy Ignacio PORTILLO Facility:CD:[id number] Start: 10-09-2024 Non-patient / Non-visit Benjam in Ball DO Work Phone: [facility] Work Phone: Start: 10-08-2024 End: 10-11-2024 External Result Encounter Gerard Platt DO Work Phone: [facility] External Department Unsolicited Start: 10-08-2024 End: 10-11-2024 External Result Encounter Gerard Platt DO Work Phone: [facility] External Department Unsolicited Start: 10-08-2024 Non-patient / Non-visit Benjam in Ball DO Work Phone: [facility] Work Phone: Start: 10-08-2024 End: 10-10-2024 ambulatory Dionte Pereira Facility::[id number] Start: 10-06-2024 End: 10-12-2024 Evaluation and management of inpatient Eleazar Mayorga DO Work Phone: [facility] Work Phone: Start: 10-02-2024 End: 10-06-2024 Evaluation and management of inpatient Gricelda Perea MD Work Phone: [facility] Comment on above: Hematuria (Primary D x); Chronic indwelling Cyr catheter; Tobacco use Start: 10-01-2024 Non-patient / Non-visit Benjam in Ball DO Work Phone: [facility] Work Phone: Start: 10-01-2024 End: 10-01-2024 Telephone encounter Ally Choudhary [facility] [place] Comment on above: Blood in Urine Urinary Retention; B lood in Urine Start: 09-30-2024 Non-patient / Non-visit Benjam in Ball DO Work Phone: [facility] Work Phone: Start: 09-29-2024 Non-patient / Non-visit Benjam in Ball DO Work Phone: [facility] Work Phone: Start: 09-09-2024 End: 09-09-2024 [facility] Start: 08-19-2024 Non-patient / Non-visit Benjam in Ball DO Work Phone: [facility] Work Phone: Start: 06-15-2024 ambulatory SARAH READ [facility] Start: 06-05-2024 ambulatory ELEAZAR MAYORGA [facility] Start: 06-05-2024 Encounter for other preprocedural examination SARAH READ [facility] Start: 06-05-2024 End: 06-11-2024 Evaluation and management of inpatient ELEAZAR [facility] Start: 06-05-2024 End: 06-12-2024 Emergency department patient visit PATRIA [place] BRUCEBRAYAN [facility] Start: 05-27-2024 End: 06-01-2024 Evaluation and management of inpatient ELEAZAR [facility] Start: 05-27-2024 End: 06-03-2024 Telephone encounter Nae Rojas MD Work Phone: [facility] Start: 05-13-2024 End: 05-13-2024 ambulatory ELEAZAR [facility] Start: 05-12-2024 End: 05-13-2024 Emergency department patient visit BROOK SIMMS [facility] Start: 04-13-2024 End: 04-13-2024 ambulatory ELEAZAR [facility] Start: 04-10-2024 End: 04-21-2024 Evaluation and management of inpatient RAJESH RICE [facility] Start: 04-09-2024 End: 04-11-2024 Emergency department patient visit YUDELKA MCMULLEN [facility] Start: 04-09-2024 End: 04-10-2024 [facility] ELEAZAR [facility] Start: 04-09-2024 End: 04-10-2024 Emergency department patient visit Yduelka Mcmullen DO Work Phone: [facility] Comment on above: Stroke-like symptoms (Primary Dx); DAISY (acute kidney injury) ([facility]); Anemia, unspecified type; Elevated troponin Start: 03-31-2024 End: 03-31-2024 ambulatory [facility] Work Phone: Start: 03-31-2024 End: 03-31-2024 Patient encounter procedure [facility] Work Phone: Start: 03-29-2024 End: 04-26-2024 ambulatory [facility] Start: 03-26-2024 End: 03-26-2024 ambulatory [facility] Work Phone: Start: 03-26-2024 End: 03-26-2024 Patient encounter procedure [facility] Work Phone: Start: 03-17-2024 End: 03-17-2024 Cass REYNA [facility] Phone: [facility] Comment on above: Arthritis of right k nee Start: 02-13-2024 End: 03-27-2024 ambulatory [facility] Start: 02-12-2024 End: 02-12-2024 Patient encounter procedure Klaus Yeboah MD Work Phone: [facility] Comment on above: Right knee pain, uns pecified chronicity; Arthritis of right knee Start: 02-12-2024 End: 02-12-2024 ambulatory [facility] Start: 02-04-2024 End: 02-04-2024 ambulatory JASON RODRIGUEZ Not Available Start: 01-23-2024 End: 01-23-2024 ambulatory [facility] Work Phone: Start: 01-23-2024 End: 01-23-2024 Patient encounter procedure [facility] Work Phone: Start: 12-30-2023 End: 12-30-2023 Office outpatient new 30 minutes Klaus Yeboah MD Work Phone: [facility] Comment on above: Arthritis of right k nee (Primary Dx); Right knee pain, unspecified chronicity Start: 12-30-2023 End: 12-30-2023 ambulatory [facility] Start: 12-11-2023 End: 12-11-2023 Office outpatient visit 25 minutes Nae Rojas MD Work Phone: [facility] Comment on above: Sequelae, post-strok e (Primary Dx); Cerebrovascular accident (CVA) due to thrombosis of precerebral artery ([facility]); Type 2 diabetes mellitus with hyperglycemia, with long-term current use of insulin ([facility]); Transient alteration of awareness; Mixed hyperlipidemia; Blurred vision; Gait instability Start: 12-11-2023 End: 12-11-2023 [facility] Start: 12-01-2023 End: 12-01-2023 ambulatory Eleazar Mayorga Other [employer] Other Start: 12-01-2023 Telephone encounter Eleazar SUAZO [facility] Start: 11-26-2023 End: 11-26-2023 ambulatory Eleazar Mayorga Other [employer] Other Start: 11-26-2023 Office outpatient vi sit 25 minutes Eleazar RAMON [facility] Start: 11-26-2023 Telephone encounter Eleazar SUAZO [facility] Start: 11-26-2023 End: 11-26-2023 Patient encounter procedure [facility] Start: 11-17-2023 Telephone encounter Alysha [facility] Start: 11-05-2023 End: 11-05-2023 ambulatory ELEAZAR Graham MUKESH [facility] Start: 10-31-2023 ambulatory [facility] Comment on above: Cerebrovascular acci dent (CVA) due to thrombosis of precerebral artery ([facility]) (Primary Dx); Other cerebrovascular vasospasm and vasoconstriction Start: 10-28-2023 End: 10-30-2023 ambulatory [facility] Start: 10-28-2023 End: 10-30-2023 ambulatory [facility] Start: 10-28-2023 End: 10-30-2023 ambulatory HAMMAD PATEL [facility] Start: 10-26-2023 End: 10-30-2023 Emergency department patient visit SARAH BARRETT [facility] Start: 10-26-2023 End: 10-29-2023 Evaluation and management of inpatient SARAH BARRETT [facility] Start: 05-09-[address] ELEAZAR Mcgraw ty:H1 Start: 11-27-[address] ELEAZAR Mcgraw ty:H1 Procedures Date Procedure Procedure Detail Performing Clinician Start: 10-09-2024 Duplex scan veins of upper limb Eleazar Mayorga [employer] Work Phone: Start: 10-08-2024 Sedimentation rate rbc automated Gerard Platt DO Work Phone: Start: 10-06-2024 Computed tomography of abdomen and pelvis with contrast Eleazar Mayorga [employer] Work Phone: Start: 10-06-2024 Plain chest X-ray Eleazar Mayorga [employer] Work Phone: Start: 10-06-2024 Bacteria identified in Blood by Culture Eleazar Mayorga [employer] Work Phone: Start: 10-06-2024 Respiratory Panel (PCR) Eleazar Mayorga [employer] Work Phone: Start: 10-06-2024 Urine culture Eleazar Mayorga [employer] Phone: Start: 10-05-2024 Glucose quantitative blood xcpt reagent strip Gricelda Perea MD Work Phone: Start: 10-05-2024 Glucose quantitative blood xcpt reagent strip Gricelda Perea MD Work Phone: Start: 10-05-2024 End: 10-05-2024 Basic metabolic panel calcium total Crystal A Vargas EP SPECIALIST-[employer] Work Phone: Start: 10-04-2024 Glucose quantitative blood [...] Basic metabolic panel calcium total Tea Vargas EP SPECIALIST-[employer] Work Phone: Start: 10-03-2024 Glucose quantitative blood xcpt reagent strip Gricelda Perea MD Work Phone: Start: 10-03-2024 Blood count hematocrit Tea Vargas EP SPECIALIST-[employer] M[employer]INE [employer] Work Phone: Start: 10-03-2024 Glucose quantitative blood xcpt reagent strip Gricelda Perea MD Work Phone: Start: 10-03-2024 Glucose quantitative blood xcpt reagent strip Gricelda Perea MD Work Phone: Start: 10-03-2024 End: 10-03-2024 Comprehensive metabolic panel Hong Tello EP SPECIALIST-[employer] Work Phone: Start: 10-02-2024 Glucose quantitative blood xcpt reagent strip Gricelda Perea MD Work Phone: Start: 10-02-2024 Glucose quantitative blood xcpt reagent strip Gricelda Perea MD Work Phone: Start: 10-02-2024 EXTRA URINE ALBA TUBE Hong Tello EP SPECIALIST-C HE[employer] CONSULTANT Work Phone: Start: 10-02-2024 Urinalysis complete W Reflex Culture panel - Urine Hong Tello EP SPECIALIST-[employer] Work Phone: Start: 10-02-2024 Urnls dip stick/tablet reagent auto microscopy Hong Tello EP SPECIALIST-[employer] Work Phone: Start: 10-02-2024 Glucose quantitative blood xcpt reagent strip Gricelda Perea MD Work Phone: Start: 10-02-2024 Ct abdomen & pelvis w/o contrast material Hong Tello EP SPECIALIST-[employer] Work Phone: Start: 10-02-2024 Glucose quantitative blood xcpt reagent strip Gricelda Perea MD Work Phone: Start: 10-02-2024 Ecg routine ecg w/least 12 lds trcg only w/o i&r Hong Holdeni EP SPECIALIST-[employer] Work Phone: Start: 10-02-2024 Comprehensive metabolic panel Hong Holdeni EP SPECIALIST-[employer] M[employer]INE [employer]ED[employer] Work Phone: Start: 04-19-2024 Colonoscopy Gricelda Perea MD Work Phone: Start: 04-10-2024 Gluc bld gluc mntr dev cleared fda spec home use Emilia Hidalgo MD Work Phone: Start: 04-10-2024 Ct angiography neck w/contrast/noncontrast Alexandra Barrientos EP SPECIALIST-[facility] Work Phone: Start: 04-10-2024 End: 04-10-2024 Ct head/brain w/o contrast material Alexandra Barrientos EP SPECIALIST-[facility] Work Phone: Start: 04-10-2024 Gluc bld gluc [...] lds trcg only w/o i&r Yudelka Mcmullen DO Work Phone: Start: 04-09-2024 Assay of troponin quantitative Yudelka Mcmullen DO Work Phone: Start: 04-09-2024 Mri brain brain stem w/o contrast material Yudelka Mcmullen DO Work Phone: Start: 04-09-2024 Assay of troponin quantitative Yudelka Mcmullen DO Work Phone: Start: 04-09-2024 End: 04-09-2024 Radiologic examination pelvis 1/2 views Yudelka Mcmullen DO Work Phone: Start: 04-09-2024 Ecg routine ecg w/least 12 lds trcg only w/o i&r Yudelka Mcmullen DO Work Phone: Start: 04-09-2024 Ct angiography neck w/contrast/noncontrast Yudelka Mcmullen DO Work Phone: Start: 04-09-2024 Basic metabolic panel calcium total Yudelka Horvath Phone: Start: 04-09-2024 Lipid panel Yudelka Mcmullen DO Work Phone: Start: 04-09-2024 End: 04-09-2024 Ct head/brain w/o contrast material Yudelka Mcmullen DO [employer] Phone: Start: 04-09-2024 ED PHYSICIAN SEPSIS SCREENING [...] Screening for malign ant neoplasm of colon [facility] Start: 04-09-2029 Lipid panel Lipid Screening [facility] Start: 2028 RSV High Risk: (Elde rly (60+) or Population) (1 - 1-dose 75+ series) RSV High Risk: (Elderly (60+) or Population) (1 - 1-dose 75+ series) [facility] Start: 2028 RSV Vaccine (1 - 1-d ose 75+ series) RSV Vaccine (1 - 1-dose 75+ series) [facility] Start: 10-05-2027 Diabetes Screening Diabetes Screenin g [facility] Start: 10-05-2025 Diabetes mellitus screening Diabetes Screening [facility] Start: 06-07-2025 Adult BMI Screening Adult BMI Screen ing [facility] Start: 06-06-2025 Tobacco Screening Tobacco Screening [facility] Start: 06-01-2025 Adult BMI Screening Adult BMI Screen ing [facility] Start: 05-27-2025 Tobacco Screening Tobacco Screening [facility] Start: 02-11-2025 Adult BMI Screening Adult BMI Screen ing [facility] Start: 12-29-2024 Adult BMI Screening Adult BMI Screen ing [facility] Start: 12-29-2024 Tobacco Screening Tobacco Screening [facility] Start: 12-11-2024 Adult BMI Screening Adult BMI Screen ing [facility] Start: 12-11-2024 Depression Screening Depression Scre ening [facility] Start: 12-11-2024 Tobacco Screening Tobacco Screening [facility] Start: 12-01-2024 End: 12-01-2024 Patient encounter procedure 12/01/2024 1:40 PM EST Office Visit [address] [place] [phone] Avery Hoyos MD [address] [place] [address] [place] [address] [facility] Start: 11-02-2024 End: 11-02-2025 MR Liver WO contrast MR liver wo IV contrast Imaging Routine Gallbladder polyp Expected: 11/02/2024, Expires: 11/02/2025 [facility] Service Area Work Phone: Comment on above: Expected: 11/02/2024 , Expires: 11/02/2025 Start: 10-29-2024 Adult BMI Screening Adult BMI Screen ing [facility] [employer] [facility] Start: 10-28-2024 Bacteria identified in Urine by Culture Urine Culture [facility] Start: 10-28-2024 Urine culture [facility] Start: 10-27-2024 Advance Directive Discussion Advance Directive Discussion [facility] Start: 10-26-2024 Tobacco Screening Tobacco Screening [facility] Start: 10-12-2024 [facility] Start: 10-10-2024 Referral to neurologist [facility] Start: 10-09-2024 Referral to infectio us diseases physician [facility] Start: 10-07-2024 Referral to oncologist [facility] Start: 10-07-2024 Referral to practice office associate [facility] Start: 10-06-2024 [facility] Start: 10-06-2024 Referral to urologist [facility] Start: 10-06-2024 Hospital admission [facility] Start: 10-06-2024 Control Bleeding in Genitourinary Tract, Via Natural or Artificial Opening Endoscopic Control Bleeding in Genitourinary Tract, Via Natural or Artificial Opening Endoscopic [facility] Start: 10-06-2024 Fluoroscopy of Kidne ys, Ureters and Bladder using Low Osmolar Contrast Fluoroscopy of Kidneys, Ureters and Bladder using Low Osmolar Contrast [facility] Start: 07-22-2024 End: 07-22-2024 Telemedicine consultation with patient 07/22/2024 11:30 AM EDT Telemedicine [facility] [address] [place] [address] Nae Rojas MD [address] [place] [address], [address] [place] [address] [facility] Start: 06-27-2024 COVID-19 Vaccine () COVID-19 Vaccine () [facility] Start: 06-27-2024 Influenza vaccination [facility] Start: 06-03-2024 End: 06-03-2024 Patient encounter procedure 06/03/2024 3:05 PM EDT Office Visit [facility] [address] [facility] [address] Klaus Yeboah MD [address] [place] [address] [facility] Start: 03-11-2024 End: 03-11-2024 Patient encounter procedure 03/11/2024 3:30 PM EDT Office Visit [facility] [address] [place] [phone] Nae Rojas MD [address] [place] [address], [address] [place] [phone] [facility] Start: 02-25-2024 End: 02-25-2024 Patient encounter procedure 02/25/2024 10:30 AM EDT Appointment [facility] John[facility] Re[facility] [address] [place] [phone] Arrived [facility] Comment on above: Arrived Start: 12-11-2023 End: 12-11-2023 Patient encounter procedure 12/11/2023 11:30 AM EST Office Visit [facility] [address] [place] [phone] Nae Rojas MD [address] [facility], [address] [place] [address] [facility] Start: 12-04-2023 End: 12-04-2023 Patient encounter procedure 12/04/2023 9:00 AM EST Office Visit [facility] [address] [place] [address] [place] [address] Neo Easton MD [address], [place] [address] [facility] Start: 10-31-2023 End: 10-31-2024 Event Monitor (In Office) [employer] Work Phone: Comment on above: Expected: 10/31/2023 , Expires: 10/31/2024 Start: 06-27-2023 Influenza vaccination Influenza Vacc ine [facility] Start: 2018 Abdominal aortic aneurysm screening [facility] Start: 2018 Fall Risk Screening Fall Risk Screen ing [facility] Start: 05-02-2017 Urine screening for protein Urine Microalbumin [facility] Start: 2013 RSV High Risk: (Elde rly (60+) or Population) (1 - Risk 60-74 years 1-dose series) RSV High Risk: (Elderly (60+) or Population) (1 - Risk 60-74 years 1-dose series) [facility] Start: 2003 Administration of varicella zoster vaccine Zoster (Shingles) Vaccine (1 of 2) [facility] Start: 2003 Pneumococcal Vaccine : 50+ (1 of 1 - PCV) Pneumococcal Vaccine: 50+ (1 of 1 - PCV) [facility] Start: 2003 Screening for malign ant neoplasm of lung Lung Cancer Screening [facility] Start: 2003 Shingrix Vaccine (1 of 2) Shingrix Vaccine (1 of 2) [facility] Start: 2003 Zoster Vaccines (1 of 2) Zoster Vacc monalisa (1 of 2) [facility] Start: 1998 Screening for malign ant neoplasm of colon [facility] Start: 1975 DTaP/Tdap/Td Vaccine s (1 - Tdap) DTaP/Tdap/Td Vaccines (1 - Tdap) [facility] Start: 1972 DTaP,Tdap and Td Vaccines (1 - Tdap) DTaP,Tdap and Td Vaccines (1 - Tdap) [facility] Start: 1972 Pneumococcal vaccination Pneum ococcal Vaccine (1 of 2 - PCV) [facility] Start: 1972 Urine microalbumin profile DTaP,Tdap,Td Vaccine (1 - Tdap) [facility] Start: 1971 Adult BMI Follow Up Plan Adult BMI F ollow Up Plan [facility] Start: 1971 Anxiety Screening Anxiety Screening [facility] Start: 1971 Depression Screening Depression Scre ening [facility] Start: 1971 Diabetic foot examination Diabetic Foot Exam [facility] Start: 1971 Hepatitis C screening Hepatitis C Sc [facility] Start: 1965 Depression Screening Depression Scre ening [facility] Start: 1959 Pneumococcal Vaccine : 65+ Years (1 of 2 - PCV) Pneumococcal Vaccine: 65+ Years (1 of 2 - PCV) [facility] Start: 1953 Glaucoma screening Diabetic Op hthalmology Exam [facility] Start: 1953 Lipid panel Lipid Panel [facility] Start: 1953 Medicare Annual Well ness Visit [facility] Start: 1953 Screening for malign ant neoplasm of colon [facility] Start: 1953 Tobacco Counseling Tobacco Counselin g [facility] Basic metabolic 2000 panel - Serum or Plasma Basic Metabolic Panel Lab Routine Morning draw (Lab) until discontinued starting 10/04/2024, 2 completed [facility] Service Area Work Phone: Comment on above: Morning draw (Lab) u ntil discontinued starting 10/04/2024, 2 completed End: 04-09-2024 Bedside Glucose *Place/Obtain serum glucose if >500(>600 [facility]) per glucometer. [employer] Work Phone: Comment on above: Once for 1 Occurrenc es starting 04/09/2024 until 04/09/2024 4X Daily (AC and at bedtime) until discontinued starting 04/09/2024, 3 completed CBC panel - Blood by Automated count CBC Lab Routine Morning draw (Lab) until discontinued starting 10/03/2024, 3 completed [facility] Work Phone: Comment on above: Morning draw (Lab) u ntil discontinued starting 10/03/2024, 3 completed End: 04-12-2024 CBC W Auto Differential panel - Blood CBC auto differential Lab Routine Lab max of 3 days, Daily, for lab use only for 3 Days starting 04/10/2024 until 04/12/2024, 1 completed [employer] Comment on above: Lab max of 3 days, D aily, for lab use only for 3 Days starting 04/10/2024 until 04/12/2024, 1 completed End: 04-12-2024 Comprehensive metabolic 2000 panel - Serum or Plasma Comprehensive metabolic panel Lab Routine Lab max of 3 days, Daily, for lab use only for 3 Days starting 04/10/2024 until 04/12/2024, 1 completed [employer] Comment on above: Lab max of 3 days, D aily, for lab use only for 3 Days starting 04/10/2024 until 04/12/2024, 1 completed ECG 12 Lead ECG 12 Lead ECG Routine As needed until discontinued starting 10/02/2024 [facility] Work Phone: Comment on above: As needed until disc ontinued starting 10/02/2024 End: 04-10-2024 Echo complete W/O contrast Echo complete W/O contrast Echocardiography Routine Once for 1 Occurrences starting 04/10/2024 until 04/10/2024 [employer] Work Phone: Comment on above: Once for 1 Occurrenc es starting 04/10/2024 until 04/10/2024 Glucose [Mass/volume ] in Serum or Plasma POCT Glucose Point of Care Testing - Docked Device Routine As needed (Lab) until discontinued starting 10/02/2024 [facility] Work Phone: Comment on above: As needed (Lab) unti l discontinued starting 10/02/2024 Iron and Iron bindin g capacity panel - Serum or Plasma Iron and TIBC Lab Routine 10/08/2024 7:05 PM EST [facility] Work Phone: End: 10-02-2024 Irrigation of Bladder Irrigation of Bladder Procedures Routine Continuous until discontinued starting 10/02/2024 [facility] Service Area Work Phone: Comment on above: Continuous until dis continued starting 10/02/2024 End: 12-29-2024 Large Joint Injection/Arthrocentesis - PA Large Joint Injection/Arthrocentesis - PA Procedures Routine Right knee pain, unspecified chronicity Arthritis of right knee 1 Occurrences starting 12/30/2023 until 12/29/2024 [employer] Work Phone: Comment on above: 1 Occurrences starti ng 12/30/2023 until 12/29/2024 Magnesium [Mass/volu me] in Serum or Plasma Magnesium Lab Routine Morning draw (Lab) until discontinued starting 10/03/2024, 3 completed [facility] Work Phone: Comment on above: Morning draw (Lab) u ntil discontinued starting 10/03/2024, 3 completed End: 04-12-2024 Magnesium [Mass/volume] in Serum or Plasma Magnesium Lab Routine Lab max of 3 days, Daily, for lab use only for 3 Days starting 04/10/2024 until 04/12/2024, 1 completed [employer] Comment on above: Lab max of 3 days, D aily, for lab use only for 3 Days starting 04/10/2024 until 04/12/2024, 1 completed End: 12-29-2024 Nicotine screen, urine Nicotine screen, urine Lab Routine Arthritis of right knee 1 Occurrences starting 12/30/2023 until 12/29/2024 [employer] Comment on above: 1 Occurrences starti ng 12/30/2023 until 12/29/2024 Oxygen Therapy - Maintain SpO2: 90%; *PSYCHIATRIC SPECIALIST Guidelines for O2: Yes; Document: [email or web address]\epi c\EPIC_Reference\Orders\ Respiratory Care Guidelines\CPG Oxygen 2022.pdf Oxygen Therapy - Maintain SpO2: 90%; *PSYCHIATRIC SPECIALIST Guidelines for O2: Yes; Document: \[email or web address]\epic \EPIC_Reference\Orders\Re spiratory Care Guidelines\CPG Oxygen 2022.pdf Respiratory Care Routine As Needed until discontinued starting 04/09/2024 [employer] Comment on above: As Needed until disc ontinued starting 04/09/2024 Patient referral [facility] Work Phone: Phosphate [Mass/volu me] in Serum or Plasma Phosphorus Lab Routine Morning draw (Lab) until discontinued starting 10/03/2024, 3 completed [facility] Work Phone: Comment on above: Morning draw (Lab) u ntil discontinued starting 10/03/2024, 3 completed End: 04-11-2024 Phosphate [Mass/volume] in Serum or Plasma Phosphorus Lab Routine Lab max of 3 days, Daily, for lab use only for 3 Days starting 04/09/2024 until 04/11/2024, 2 completed [employer] Comment on above: Lab max of 3 days, D aily, for lab use only for 3 Days starting 04/09/2024 until 04/11/2024, 2 completed [facility] Immunizations Immunization Date Immunization Notes Care Provider Fortino rouse 07-08-2018 influenza virus vaccine, split virus (incl. purified surface antigen) Eleazar Mayorga Other [employer] Other 07-08-2018 influenza virus vaccine, unspecified formulation [facility] Payers Date Payer Category Payer Medicare [id number] 2024 Medicare [id number] 2024 Medicaid [id number] 2021 Medicaid [id number] 2021 Medicare [id number] [id number]. [id number] 2021 Medicare (Managed Care) 1.2. [id number]. [id number] 2021 Medicare HMO [employer] MED[employer] [id number]. [id number] 2021 Medicare [id number] 1959 Self-pay 1953 Unknown [id number] 2.16.840.1.109138.3.579.2. 593 1953 Unknown [id number] 2.16.840.1.779836.3.579.2. 593 1953 Unknown [id number] 2.16.840.1.370456.3.579.2. 1259 1953 Unknown [id number] 2.16.840.1.150205.3.579.2. 1286 1953 Unknown [id number] 2.16.840.1.665220.3.579.2. 1286 1953 Unknown [id number] 2.16.840.1.616479.3.579.2. 1286 1953 Unknown [id number] 2.16.840.1.124070.3.579.2. 1286 1953 Unknown [id number] 2.16.840.1.599737.3.579.2. 1286 1953 Unknown [id number] 2.16.840.1.796932.3.579.2. 1285 1953 Unknown [id number] 2.16.840.1.163675.3.579.2. 1285 1953 Unknown [id number] 2.16.840.1.026275.3.579.2. 128 1953 Unknown [id number] 2.16.840.1.769329.3.579.2. 128 1953 Unknown [id number] 2.16.840.1.660323.3.579.2. 1285 1953 Unknown [id number] 2.16.840.1.889220.3.579.2. 1285 1953 Unknown [id number] 2.16.840.1.932691.3.579.2. 1285 1953 Unknown [id number] 2.16.840.1.102056.3.579.2. 128 1953 Unknown [id number] 2.16.840.1.819316.3.579.2. 1285 1953 Unknown [id number] 2.16.840.1.424333.3.579.2. 1285 1953 Unknown [id number] 2.16.840.1.676246.3.579.2. 1285 1953 Unknown [id number] 2.16.840.1.249778.3.579.2. 128 1953 Unknown [id number] 2.16.840.1.844884.3.579.2. 1285 1953 Unknown [id number] 2.16.840.1.638819.3.579.2. 1285 1953 Unknown [id number] 2.16.840.1.560974.3.579.2. 1285 1953 Unknown [id number] 2.16.840.1.224850.3.579.2. 1286 1953 Unknown [id number] 2.16.840.1.537670.3.579.2. 1285 1953 Unknown [id number] 2.16.840.1.446534.3.579.2. 1285 1953 Unknown [id number] 2.16.840.1.655992.3.579.2. 128 1953 Unknown [id number] 2.16.840.1.375017.3.579.2. 1285 1953 Unknown [id number] 2.16.840.1.106970.3.579.2. 1285 1953 Unknown [id number] 2.16.840.1.046378.3.579.2. 1285 1953 Unknown [id number] 2.16.840.1.043931.3.579.2. 1285 1953 Unknown [id number] 2.16.840.1.550563.3.579.2. 1285 1953 Unknown [id number] 2.16.840.1.238163.3.579.2. 1285 1953 Unknown [id number] 2.16.840.1.900187.3.579.2. 1285 1953 Unknown [id number] 2.16.840.1.372445.3.579.2. 1285 1953 Unknown [id number] 2.16.840.1.815078.3.579.2. 1285 1953 Unknown [id number] 2.16.840.1.744395.3.579.2. 1285 1955 Unknown [id number] 2.16.840.1.880996.3.579.2. 1285 1955 Unknown [id number] 2.16.840.1.221925.3.579.2. 1286 1955 Unknown [id number] 2.16.840.1.070212.3.579.2. 1243 1955 Unknown [id number] 2.16.840.1.499801.3.579.2. 1244 1955 Unknown [id number] 2.16.840.1.392857.3.579.2. 1244 1955 Unknown [id number] 2.16.840.1.414332.3.579.2. 727 1955 Unknown [id number] 2.16.840.1.101676.3.579.2. 727 1955 Unknown [id number] 2.16.840.1.649648.3.579.2. 727 1955 Unknown [id number] 2.16.840.1.946611.3.579.2. 727 1955 Unknown [id number] 2.16.840.1.800377.3.579.2. 727 1953 Unknown [id number] 2.16.840.1.292832.3.579.2. 727 1953 Unknown [id number] 2.16.840.1.092961.3.579.2. 727 1955 Unknown [id number] 2.16.840.1.001099.3.579.2. 727 1955 Unknown [id number] 2.16.840.1.413935.3.579.2. 727 1955 Unknown [id number] 2.16.840.1.367358.3.579.2. 727 1955 Unknown [id number] 2.16.840.1.256624.3.579.2. 727 1955 Unknown [id number] 2.16.840.1.133572.3.579.2. 727 1955 Unknown [id number] 2.16.840.1.874449.3.579.2. 727 1955 Unknown [id number] 2.16.840.1.099578.3.579.2. 727 1953 Unknown [id number] 2.16.840.1.754322.3.579.2. 727 1955 Unknown [id number] 2.16.840.1.409415.3.579.2. 727 Unknown [id number] 2.16.840.1.071030.19 Unknown [id number] 2.16.840.1.334718.3.579.2. 531 Unknown [id number] 2.16.840.1.200883.3.579.2. 531 Social History Date Type Detail Facility Start: 12-07-2020 End: 10-02-2024 Sex Assigned At [facility] Start: 1955 Sex Assigned At Male F [facility] Start: 10-02-2024 End: 10-11-2024 Tobacco smoking status NHIS Smokes tobacco daily [facility] Start: 10-27-1960 History of tobacco use Cigarette Smo ker [facility] Start: 12-07-2020 End: 10-02-2024 Cigarettes smoked current (pack per day) - Reported 0.5 [facility] History of tobacco use Passive smoker [facility] Work Phone: Start: 04-09-2024 End: 10-02-2024 Tobacco use and exposure Smokeless tobacco non-user [facility] [employer] [facility] Start: 06-06-2024 End: 10-02-2024 Alcoholic beverage intake Ex-drinker (finding) [facility] Has the [employer] threatened to shut off services in your home in past 12Mo Patient declined [facility] Within the last year , have you been afraid of your partner or ex-partner? No [facility] [employer] [facility] How often to you hav e a drink containing alcohol? Never [facility] Start: 1955 Sex assigned at Not on file [facility] [employer] [facility] Start: 09-22-2024 End: 11-02-2024 Exposure to SARS-CoV-2 (event) Not sure [facility] Work Phone: Start: 02-12-2024 Tobacco smoking stat us FLIS Never smoked tobacco [facility] Start: 10-25-2024 End: 05-09-2025 Tobacco smoking status Ex-smoker (finding) [facility] Start: 10-11-2024 Tobacco smoking stat us NHIS Smoker (finding) [facility] Start: 06-01-2015 End: 10-29-2024 Sex Male (finding) [facility] Tobacco smoking stat [facility] Tobacco smoking consumption unknown [facility] Sexual Orientation [facility] Eileen Goals Date Patient Goal Desired [...] goal: Current Discharge Plan; SNF- Return to [facility] Functional Status Date Assessment Result Facility 11-08-2024 Functional Status N/A [facility] 10-25-2024 Functional Status N/A [facility] 10-12-2024 Functional status Patient at Baseline [facility] Work Phone: Mental Status Date Assessment Result Facility 10-12-2024 Cognitive function Cognitive Sta tus Patient at Baseline [facility] Work Phone: Clinical Notes 11-17-2023 to 05-09-2025 [...] Treatment for this condition includes: Antibiotic medicine. Sshn-yed-wqkvuxj medicines to treat discomfort. Drinking enough water [...] Follow these instructions at home: Medicines Take xmjo-sln-njfsnpm and prescription medicines only as told by [...] provider. Document Revised: 05/20/2021 Document Reviewed: 05/25/2021 [employer] Patient Education 2023 e-channel. Follow Up Care 05/02/2025 11:45:18 With:JAROCHO POST MD, URL Address: When: Unknown [facility] 05-09-2025 Note Patient Education Urology Urinary Tract [...] this condition includes: ??? Antibiotic medicine. ??? Sqgz-xpn-rtfaoru medicines to treat discomfort. ??? Drinking enough [...] these instructions at home: Medicines ??? Take pfnd-gvz-yvkntzm and prescription medicines only as told by [...] discuss any question (more content not included)... [facility] 05-02-2025 Note Microbiology PROCEDURE: Blood Culture Charcoal [R1] SOURCE: Blood BODY SITE: COLLECTED DATE/TIME: 04/24/2025 21:08 EDT RECEIVED DATE/TIME: 04/24/2025 22:38 EDT START DATE/TIME: 04/24/2025 22:38 EDT FREE TEXT SOURCE: Right Forearm Peripheral vein site #1 Isai Mehta DO, DO, Kevin M. FINAL REPORTS Final Report [] Verified Date/Time: 05/02/2025 00:00 EDT No growth at 7 days. Performing Locations R1: This test was performed at: [facility], [address] [place] [address], [id number] , , [facility] Comment on above: Performed By: #### 1 [id number] #### [facility] [address] [place] [address] 05-02-2025 Note Microbiology PROCEDURE: Blood Culture Charcoal [R1] SOURCE: Blood BODY SITE: Hand R COLLECTED DATE/TIME: 04/24/2025 21:07 EDT RECEIVED DATE/TIME: 04/24/2025 21:19 EDT START DATE/TIME: 04/24/2025 21:19 EDT FREE TEXT SOURCE: Isai Mehta DO. Isai Mehta DO. FINAL REPORTS Final Report [] Verified Date/Time: 05/02/2025 00:00 EDT No growth at 7 days. Performing Locations R1: This test was performed at: [facility], [address] [place] [address], [id number]- , [place], [facility] Comment on above: Performed By: #### 1 [id number] #### [facility] [address] [place] [id number] 04-28-2025 Evaluation + Plan note Extrac willian from: Title:Discharge Note Author:SUKH TOWNSEND, Wandy Mandel ate:04/28/25 Stable Discharge To, Anticipated II - Senior Living Unit Discharged to - residential unit Transported by, Anticipated - EMS SNF, [facility] Discharge Diet(s): Calorie Controlled- 1800 Calorie Diet, [...] Within 2 to [address] [facility] (1) Additional Instructions: Neurology Within 2 to 4 weeks Additional Instructions: Call [phone] for follow up appt Toxic Metabolic Encephalopathy Extracted from: Title:APSO Note Author:SUKH TOWNSEND, Mbanefo Date: 69-year-old long term mal e resident with history of cerebrovascular accident with left-sided hemiplegia, pancytopenia, sinus bradycardia, hypertension, diabetes mellitus, hyperlipidemia, chronic hyponatremia, GERD, chronic indwelling Cyr catheter presented from the prison facility because of change in mental status [...] his baseline mentation. Seen by neurologist. Ordered: [facility] Hospital Care/Day Moderate 35 Minutes [id number] 2. Catheter-associated urinary tract infection (T83.511A: Infection and inflammatory reaction due to indwelling urethral catheter, initial encounter) Catheter associated MRSA and Providencia urinary tract infection present on admission. Continue treated with IV meropenem and vancomycin. Will speak with infectious disease specialist to see if we can convert to oral Bactrim at discharge. Ordered: [facility] Hospital Care/Day Moderate 35 Minutes 31319 3. 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 Seen by neurologist. Patient was started on Keppra 500 mg twice daily. Buspirone was discontinued because of lowering seizure threshold. Ordered: [facility] Care/Day Moderate 35 Minutes 11459 4. Involuntary movements (R25.9: Unspecified abnormal involuntary movements) Secondary to above seizure. Resolved. Ordered: [facility] Care/Day Moderate 35 Minutes 73206 5. Minor head trauma (S09.90XA: Unspecified injury of head, initial encounter) Secondary to fall at long term several days prior to presentation. Ordered: [facility] Care/Day Moderate 35 Minutes 80087 6. Hypokalemia (E87.6: Hypokalemia) Resolved. 7. History [...] prophylactic measures, unspecified) SCDs. Disposition: Back to prison facility soon. I discussed the diagnosis and plan of care with the patient at the bedside. Moderate level of MDM based on addressing above issues. This documentation was transcribed using voice recognition software. Several attempts were made to ensure accuracy. However inadvertent computerized pipe fitter errors may be present. Wandy Woodruff. Hospitalist. [...] Trough Extracted from: Title:APSO Note Author:SUKH TOWNSEND, Mbanefo Date: 69-year-old long term mal e resident with history of cerebrovascular accident with left-sided hemiplegia, pancytopenia, sinus bradycardia, hypertension, diabetes mellitus, hyperlipidemia, chronic hyponatremia, GERD, chronic indwelling Cyr catheter presented from the prison facility because of change in mental status [...] his baseline mentation. Seen by neurologist. Ordered: [facility] Hospital Care/Day Moderate 35 Minutes 78883 2. Catheter-associated urinary tract infection (T83.511A: Infection and inflammatory reaction due to indwelling urethral catheter, initial encounter) Catheter associated Staphylococcus and gram-negative tania urinary tract infection present on admission. Expanded IV antibiotics to ceftriaxone and vancomycin pending final urine culture results. Ordered: [facility] Hospital Care/Day Moderate 35 Minutes 80935 3. 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 Seen by neurologist. Patient was started on Keppra 500 mg twice daily. Buspirone was discontinued because of lowering seizure threshold. Ordered: [facility] Hospital Care/Day Moderate 35 Minutes 85694 4. Involuntary movements (R25.9: Unspecified abnormal involuntary movements) Secondary to above seizure. Resolved. Ordered: [facility] Hospital Care/Day Moderate 35 Minutes 99185 5. Minor head trauma (S09.90XA: Unspecified injury of head, initial encounter) Secondary to fall at long term several days prior to presentation. 6. Hypokalemia [...] prophylactic measures, unspecified) SCDs. Disposition: Back to prison facility pending final urine culture result. I discussed the diagnosis and plan of care with the patient at the bedside. Moderate level of MDM based on addressing above issues. This documentation was transcribed using voice recognition software. Several attempts were made to ensure accuracy. However inadvertent computerized pipe fitter errors may be present. Wandy Woodruff. Hospitalist. [...] Trough Extracted from: Title:APSO Note Author:SUKH TOWNSEND, Mbanefo Date: 69-year-old long term mal e resident with history of cerebrovascular accident with left-sided hemiplegia, pancytopenia, sinus bradycardia, hypertension, diabetes mellitus, hyperlipidemia, chronic hyponatremia, GERD, chronic indwelling Cyr catheter presented from the prison facility because of change in mental status and seizures and was admitted with acute metabolic encephalopathy secondary to catheter associated urinary tract infection, postictal secondary to new onset post stroke seizure and minor head trauma. 1. Acute encephalopathy (G93.40: Encephalopathy, unspecified) Acute metabolic encephalopathy multifactorial secondary to catheter associated urinary tract infection and postictal. Fluctuating. Approaching baseline. Seen by neurologist. Ordered: [facility] Care/Day Moderate 35 Minutes 81626 2. Catheter-associated urinary tract infection (T83.511A: Infection and inflammatory reaction due to indwelling urethral catheter, initial encounter) Catheter associated urinary tract infection present on admission. Treating with IV ceftriaxone pending final urine culture result. Ordered: [facility] Care/Day Moderate 35 Minutes 16332 3. 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 Seen by neurologist. Patient was started on Keppra 500 mg twice daily. Buspirone was discontinued because of lowering seizure threshold. Ordered: [facility] Hospital Care/Day Moderate 35 Minutes 30827 4. Involuntary movements (R25.9: Unspecified abnormal involuntary movements) Secondary to above seizure. Resolved. Ordered: [facility] Hospital Care/Day Moderate 35 Minutes 79416 5. Minor head trauma (S09.90XA: Unspecified injury of head, initial encounter) Secondary to fall at long term several days prior to presentation. Ordered: [facility] Hospital Care/Day Moderate 35 Minutes 15397 6. Hypokalemia (E87.6: Hypokalemia) Replaced. 7. History [...] prophylactic measures, unspecified) SCDs. Disposition: Back to prison facility pending final urine culture result. I discussed the diagnosis and plan of care with the patient at the bedside. Moderate level of MDM based on addressing above issues. This documentation was transcribed using voice recognition software. Several attempts were made to ensure accuracy. However inadvertent computerized pipe fitter errors may be present. Wandy Woodruff. Hospitalist. [...] Urinary Catheter Care Extracted from: Title:APSO Note Author:SUKH TOWNSEND, Mbanefo Date: 69-year-old long term mal e resident with history of cerebrovascular accident with left-sided hemiplegia, pancytopenia, sinus bradycardia, hypertension, diabetes mellitus, hyperlipidemia, chronic hyponatremia, GERD, chronic indwelling Cyr catheter presented from the prison facility because of change in mental status [...] I appreciate and agree with recommendations. Ordered: [facility] Care/Day Moderate 35 Minutes 88024 2. Catheter-associated urinary tract infection (T83.511A: Infection and inflammatory reaction due to indwelling urethral catheter, initial encounter) Catheter associated urinary tract infection present on admission. Continue on IV ceftriaxone pending final urine culture result. Ordered: [facility] Care/Day Moderate 35 Minutes 61827 3. Seizure, grand mal (G40.409: Other generalized [...] discontinued since it lowers seizure threshold. Ordered: [facility] Care/Day Moderate 35 Minutes 90939 4. Involuntary movements (R25.9: Unspecified abnormal involuntary movements) Secondary to above seizure. Resolved. Ordered: [facility] Hospital Care/Day Moderate 35 Minutes 77900 5. Minor head trauma (S09.90XA: Unspecified injury of head, initial encounter) Secondary to fall at the long term several days ago. Ordered: [facility] Hospital Care/Day Moderate 35 Minutes 77279 6. Hypokalemia (E87.6: Hypokalemia) Mild hypokalemia. Replaced [...] prophylactic measures, unspecified) SCDs. Disposition: Back to prison facility pending final urine culture results. I called and left a voice message for the patient's daughter. I discussed the diagnosis and plan of care with the patient at the bedside. Moderate. Level of MDM based on addressing above issues. This documentation was transcribed using voice recognition software. Several attempts were made to ensure accuracy. However inadvertent computerized pipe fitter errors may be present. Wandy Woodruff. Hospitalist. [...] think EEG or additional intracranial imaging will supervisor records change 5. No other recommendations from a neurology [...] Await reconciliation of patient's meds at the [facility] care facility will be cautious with medications [...] encounter) Awaiting urine culture, per the emergency police department secretary the catheter was full of purulent material. [...] Date:10/07/2025 03:00:00 PM Scheduled Provider:JAROCHO POST MD Location:[facility] Appointment Type:URO Office Visit [facility] 07-03-2025 Hospital Discharge instructions Patient Education [...] elderly, have dementia, or live in a long term. Are not getting enough fluids. Have poor [...] Follow these instructions at home: Medicines Take oapi-ljc-ukhnjnn and prescription medicines only as told by your health care provider. Do not start taking any new medicines, including cagb-kep-xhpkull medicines, without first checkingwith your health care [...] provider. Document Revised: 07/31/2021 Document Reviewed: 07/31/2021 [employer] Patient Education 2023 e-channel. Follow Up Care 04/24/2025 20:08:07 With:Follow-up with your urologist as soon as possible for Cyr catheter replacement Address:Unknown When:3 to 5 days Comments:Call for followup appointment With:ELEAZAR MAYORGA Address: [address] [place] [address]- Business (1) When:2 to 3 days With:Neurology Address: When:2 to 4 weeks Comments:Call [phone] for follow up appt [facility] 07-03-2025 NoteDischarge Summary Admission and Discharge Information Admit Date/Time:04/25/2025 00:22 Admitting Physician - Dionte COKER DO Consulting Physician - Eduar Lawrence MD Admitting Diagnoses: 1. Acute encephalopathy, 04/25/2025 4. Involuntary movements, 04/25/2025 6. Hypokalemia, 04/25/2025 Discharge Order Date Discharge Patient - Ordered -- 04/28/25 10:30:00 EDT, [facility] Discharge Diagnoses 1. Acute encephalopathy, 04/25/2025 2. [...] musculotendinous cuff of shoulder. Hospital Course 69-year-old long term male resident with history of cerebrovascular accident with left-sided hemiplegia, pancytopenia, sinus bradycardia, hypertension, insulin-dependent diabetes mellitus type 2, hyperlipidemia, chronic hyponatremia, GERD, chronic indwelling Cyr catheter secondary to BPH presented from the prison [facility] because of change in mental status and seizure. He was subsequently admitted to [facility] with acute metabolic encephalopathy secondary to catheter [...] [facility]. Urine cultures isolated procidentia and MRSA [...] Discharge Disposition Discharge To, Anticipated II - Senior Living Unit Discharged to - residential unit Transported by, Anticipated - EMS SNF, [facility] Discharge Diet Discharge Diet(s): Calorie Controlled- 1800 [...] 1 unit(s), SubCutaneous as (more content not included)...[facility] Comment: Electronically Signed By: SUKH TOWNSEND, Wandy\.br\Date and Time Signed: 04/28/25 11:59 [id number] NoteProgress Note - Pharmacy Vancomycin Pharmacy to [...] care. Please contact pharmacy if there are questions.[facility]07-03-[facility]25 NoteProgress Note-Physician Assessment/Plan 69-year-old long term male resident with history of cerebrovascular accident with left-sided hemiplegia, pancytopenia, sinus bradycardia, hypertension, diabetes mellitus, hyperlipidemia, chronic hyponatremia, GERD, chronic indwelling Cyr catheter presented from the prison facility because of change in mental status [...] his baseline mentation. Seen by neurologist. Ordered: [facility] Hospital Care/Day Moderate 35 Minutes 45552 2. Catheter-associated urinary tract infection (T83.511A: Infection and inflammatory reaction due to indwelling urethral catheter, initial encounter) Catheter associated MRSA and Providencia urinary tract infection???present on admission. Continue treated with IV meropenem and vancomycin. Will speak with infectious disease specialist to see if we can convert to oral Bactrim at discharge. Ordered: [facility] Hospital Care/Day Moderate 35 Minutes 46382 3. 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 Seen by neurologist. Patient was started on Keppra 500 mg twice daily. Buspirone was discontinued because of lowering seizure threshold. Ordered: [facility] Care/Day Moderate 35 Minutes 74589 4. Involuntary movements (R25.9: Unspecified abnormal involuntary movements) Secondary to above seizure. Resolved. Ordered: [facility] Hospital Care/Day Moderate 35 Minutes 77667 5. Minor head trauma (S09.90XA: Unspecified injury of head, initial encounter) Secondary to fall at long term several days prior to presentation. Ordered: [facility] Hospital Care/Day Moderate 35 Minutes 04653 6. Hypokalemia (E87.6: Hypokalemia) Resolved. 7. History [...] prophylactic measures, unspecified) SCDs. Disposition: Back to prison facility soon. I discussed the diagnosis and plan of care with the patient at the bedside. Moderate level of MDM based on addressing above issues. This documentation was transcribed using voice recognition software. Several attempts were made to ensure accuracy. However inadvertent computerized pipe fitter errors may be present. Wandy Woodruff. Hospitalist. [...] [phone] Counts (1) (more content not included)...[facility]Result Comment: Electronically Signed By: SUKH TOWNSEND, [employer]\.br\Date and Time Signed: 04/28/25 08:59 [id number] NoteProgress Note - Nutrition 5-day screen: Chart [...] No nutrition assessment indicated at this time. [facility] NoteProgress Note - Pharmacy Indication: Other:UTI coag [...] mg/dL High (04/26/25 16:44:00) POC Device SN: [id number] (04/26/25 16:44:00) POC User ID: [id number] (04/26/25 16:44:00) POC Username: LOLIS MEEK (04/26/25 16:44:00) morning dose on 04/27 given late due to lack of IV access; retimed subsequent doses and labs. Peak due @ 00:00 73 and Trough @ 08:00 [facility] NoteProgress Note-Physician Assessment/Plan 69-year-old long term male resident with history of cerebrovascular accident with left-sided hemiplegia, pancytopenia, sinus bradycardia, hypertension, diabetes mellitus, hyperlipidemia, chronic hyponatremia, GERD, chronic indwelling Cyr catheter presented from the prison facility because of change in mental status and seizures and was admitted with acute metabolic encephalopathy secondary to catheter associated urinary tract infection, postictal secondary to new onset post strokeseizure and minor head trauma. 1. Acute encephalopathy (G93.40: Encephalopathy, unspecified) Acute metabolic encephalopathy???multifactorial???secondary to catheter associated urinary tract infection and postictal Resolved. Patient is back to his baseline mentation. Seen by neurologist. Ordered: [facility] Hospital Care/Day Moderate 35 Minutes 67372 2. Catheter-associated urinary tract infection (T83.511A: Infection and inflammatory reaction due to indwelling urethral catheter, initial encounter) Catheter associated Staphylococcus and gram-negative tania urinary tract infection???present on admission. Expanded IV antibiotics to ceftriaxone and vancomycin pending final urine culture results. Ordered: [facility] Hospital Care/Day Moderate 35 Minutes 97264 3. 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 Seen by neurologist. Patient was started on Keppra 500 mg twice daily. Buspirone was discontinued because of lowering seizure threshold. Ordered: [facility] Care/Day Moderate 35 Minutes 53903 4. Involuntary movements (R25.9: Unspecified abnormal involuntary movements) Secondary to above seizure. Resolved. Ordered: [facility] Care/Day Moderate 35 Minutes 93380 5. Minor head trauma (S09.90XA: Unspecified injury of head, initial encounter) Secondary to fall at long term several days prior to presentation. 6. Hypokalemia [...] prophylactic measures, unspecified) SCDs. Disposition: Back to prison facility pending final urine culture result. I discussed the diagnosis and plan of care with the patient at the bedside. Moderate level of MDM based on addressing above issues. This documentation was transcribed using voice recognition software. Several attempts were made to ensure accuracy. However inadvertent computerized pipe fitter errors may be present. Wandy Woodruff. Hospitalist. [...] column has not co (more content not included)...[facility]:Result Comment: Electronically Signed By: SUKH TOWNSEND, Wandy\.br\Date and Time Signed: 04/27/25 10:04 [id number] NoteProgress Note - Pharmacy Indication: Other:UTI coag [...] mg/dL High (04/26/25 16:44:00) POC Device SN: [id number] (04/26/25 16:44:00) POC User ID: [id number] (04/26/25 16:44:00) POC Username: LOLIS MEEK (04/26/25 16:44:00)[facility] 04-26-2025 NoteProgress Note-Physician Assessment/Plan 69-year-old long term male resident with history of cerebrovascular accident with left-sided hemiplegia, pancytopenia, sinus bradycardia, hypertension, diabetes mellitus, hyperlipidemia, chronic hyponatremia, GERD, chronic indwelling Cyr catheter presented from the prison facility because of change in mental status and seizures and was admitted with acute metabolic encephalopathy secondary to catheter associated urinary tract infection, postictal secondary to new onset post strokeseizure and minor head trauma. 1. Acute encephalopathy (G93.40: Encephalopathy, unspecified) Acute metabolic encephalopathy???multifactorial???secondary to catheter associated urinary tract infection and postictal. Fluctuating. Approaching baseline. Seen by neurologist. Ordered: [facility] Care/Day Moderate 35 Minutes 32502 2. Catheter-associated urinary tract infection (T83.511A: Infection and inflammatory reaction due to indwelling urethral catheter, initial encounter) Catheter associated urinary tract infection???present on admission. Treating with IV ceftriaxone pending final urine culture result. Ordered: [facility] Care/Day Moderate 35 Minutes 42081 3. 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 Seen by neurologist. Patient was started on Keppra 500 mg twice daily. Buspirone was discontinued because of lowering seizure threshold. Ordered: [facility] Care/Day Moderate 35 Minutes 95302 4. Involuntary movements (R25.9: Unspecified abnormal involuntary movements) Secondary to above seizure. Resolved. Ordered: [facility] Care/Day Moderate 35 Minutes 27028 5. Minor head trauma (S09.90XA: Unspecified injury of head, initial encounter) Secondary to fall at long term several days prior to presentation. Ordered: [facility] Care/Day Moderate 35 Minutes 91342 6. Hypokalemia (E87.6: Hypokalemia) Replaced. 7. History [...] prophylactic measures, unspecified) SCDs. Disposition: Back to prison facility pending final urine culture result. I discussed the diagnosis and plan of care with the patient at the bedside. Moderate level of MDM based on addressing above issues. This documentation was transcribed using voice recognition software. Several attempts were made to ensure accuracy. However inadvertent computerized pipe fitter errors may be present. Wandy Woodruff. Hospitalist. [...] midline, no adenopathy, no (more content not included)...[facility]:Result Comment: Electronically Signed By: SUKH TOWNSEND, Wandy\.br\Date and Time Signed: 04/26/25 09:38 [id number] Note Progress Note-Physician Assessment/Plan 69-year-old long term male resident with history of cerebrovascular accident with left-sided hemiplegia, pancytopenia, sinus bradycardia, hypertension, diabetes mellitus, hyperlipidemia, chronic hyponatremia, GERD, chronic indwelling Cyr catheter presented from the prison facility because of change in mental status [...] I appreciate and agree with recommendations. Ordered: [facility] Care/Day Moderate 35 Minutes 13180 2. Catheter-associated urinary tract infection (T83.511A: Infection and inflammatory reaction due to indwelling urethral catheter, initial encounter) Catheter associated urinary tract infection???present on admission. Continue on IV ceftriaxone pending final urine culture result. Ordered: [facility] Care/Day Moderate 35 Minutes [id number] 3. 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 Present on admission. Seen by neurologist. I reviewed neurology consult. I appreciate and agree with recommendations. No need for neuroimaging with MRI or EEG. Patient was started on Keppra 500 mg twice daily and his buspirone was discontinued since it lowersseizure threshold. Ordered: [facility] Care/Day Moderate 35 Minutes 89923 4. Involuntary movements (R25.9: Unspecified abnormal involuntary movements) Secondary to above seizure. Resolved. Ordered: [facility] Care/Day Moderate 35 Minutes 58115 5. Minor head trauma (S09.90XA: Unspecified injury of head, initial encounter) Secondary to fall at the long term several days ago. Ordered: [facility] Care/Day Moderate 35 Minutes 69579 6. Hypokalemia (E87.6: Hypokalemia) Mild hypokalemia. Replaced [...] prophylactic measures, unspecified) SCDs. Disposition: Back to prison facility pending final urine culture results. I called and left a voice message for the patient's daughter. I discussed the diagnosis and plan of care with the patient at the bedside. Moderate. Level of MDM based on addressing above issues. This documentation was transcribed using voice recognition software. Several attempts were made to ensure accuracy. However inadvertent computerized pipe fitter errors may be present. Wandy Woodruff. Hospitalist. Orders: gabapentin, 100 mg = 1 cap(s), Cap, Oral, Daily, Routine, Start date 04/26/25 9:00:00 EDT, 04/25/2510:49:00 EDT pantoprazole, 40 mg, Tab-EC, Oral, Daily, Routine, Start date 04/26/25 9:00:00 EDT, 04/25/25 10:50:[address] [facility] Subjective Seen and examined. Offers no [...] Skin: warm, dry Head (more content not included)...[facility]: Result Comment: Electronically Signed By: SUKH TOWNSEND, Wandy\.br\Date and Time Signed: 04/25/25 10:54 [id number] NoteConsultation Note Chief Complaint witnessed seizure by [facility] staff approximately 45 seconds Reason for Consultation acute encephalopathy, ? seizure, hx CVA History of Present Illness From the H&P: 69-year-old male who I was asked to see in neurological consultation for alteredmental status/seizure. Patient is a resident at [facility]. He has been noted to have some falls over the last few days. He was seen at [facility] yesterday per EMS for a fall [...] think EEG or additional intracranial imaging will supervisor records change 5. No other recommendations from a neurology [...] disease Complex renal cyst (more content not included)...[facility] Comment on above:Result Comment: Electronically Signed By: Josh REBOLLAR, Susu Mcdonald\.br\Date and Time Signed: 04/25/25 07:17 EDT\.br\Electronically Co-Signed By: Collin Bess DO\.br\Date and Time Co-Signed: 04/25/25 10:30 [id number] Note History and Physical Basic Information Admit Date/Time:04/25/2025 00:22 Chief Complaint witnessed seizure by [facility] staff approximately 45 seconds History of Present Illness Patient is a 69-year-old pleasant gentleman resident of the [facility] was told by the emergency [...] hesitation he told me he was at [facility] by coming from [place] he was able to identify the year, [...] Low (04/24/25 21:07:00) MCH: 24.5 pg Low (04/24/25 21:07:00) MCHC: 33.8 gm/dL (04/24/25 21:07:00) RDW: 20.4 % High (04/24/25 21:07:00) Platelet: 267 E9/L (04/24/25 21:07:00) MPV: 6.7 fL (04/24/25 21:07:00) Neutro Auto: 60 % (04/24/25 21:07:00) Lymph Auto: 30.2 % (04/24/25 21:07:00) [place] Auto: 6.4 % (04/24/25 21:07:00) Eos Auto: 2.3 % (04/24/25:07:00) Basophil Auto: 1.1 % (04/24/25:07:00) Neutro Absolute: 2.3 E9/L (04/24/25 21:07:00) Lymph Absolute: 1.2 E9/L (04/24/25 21:07:00) [place] Absolute: 0.2 E9/L (04/24/25 21:07:00) Eos Absolute: 0.1 E9/L (04/24/25:07:00) Basophil Absolute: 0 E9/L (04/24/25:07:00) RBC Morph: SEE MORPHOLOGY (04/24/25 21:07:00) Anisocytosis: PRESENT (04/24/25:07:00) Microcyte: PRESENT (04/24/25 21:07:00) Poikilocytosis: PRESENT (04/24/25:07:00) PT: 12.2 second(s) (04/24/25 21:07:00) INR: 1.09 (04/24/25 21:07:00) PTT: 32.9 second(s) (04/24/25:07:00) Glucose Lvl: 183 mg/dL (04/24/25 21:07:00) BUN: 18 mg/dL (04/24/25 21:07:00) Creatinine: 0.6 mg/dL (04/24/25 21:07:00) eGFR: 103 mL/min/1.73 m2 (04/24/25 21:07:00) BUN/Cre (more content not included)...[facility]:Result Comment: Electronically Signed By: Dionte COKER DO\Date and Time Signed: 04/25/25 04:25 [id number] Hospital Discharge instructions Patient Education 04/15/2025 10:21:10 [...] urethra. Follow these instructions at home: Take fahz-blv-tpnjkhx and prescription medicines only as told by [...] provider. Document Revised: 05/01/2022 Document Reviewed: 05/01/2022 [employer] Patient Education 2023 e-channel. Follow Up Care 01/07/2025 11:38:32 With:SEJAL TOWNSEND, JAROCHO, VAN Address: When: Unknown [facility] 06-20-2025 NotePatient Education Urology Benign Prostatic Hyperplasia [...] Follow these instructions at home: ??? Take onmx-fne-aeqaaop and prescription medicines only as told by [...] symptoms do not get (more content not included)...[facility] NoteUT Cardiology - [facility] Subjective Vashti Massey is a 69 y.o. year old male patient being seen for follow up Cardiac MRI and event monitor. Patient Active Problem List Diagnosis 2018- acute respiratory disease Acute renal failure with [...] Never Substance Use Topics Alcohol use: Never HPI Vashti is seen in follow-up. This is [...] in the morning., Disp (more content not included)...[facility]03-14-2025 NotePatient Education Urology Hematuria, Adult Hematuria is [...] these instructions at home: Medicines ??? Take adxf-lwk-ymittno and prescription medicines only as told by [...] the blood stops without treatment. ??? Take tspf-kzv-yeakdne and prescription medicines only as told by your health care provider. ??? Drink enough fluid to keep your urine pale yellow. This information is not intended to replace advice given to you by your health care provider. Make sure you discuss any questions you have with your health care provider. Document Revised: 06/13/2021 Document Reviewed: 06/13/2021 [employer] Patient Education ? 2023 e-channel.[facility] 12-28-2024 History of Present illness Narrative* Tori Vargas, RN - 12/28/2024 8:00 AM EST Radiology [...] PATIENT PRESENTS WITH AN IMPLANTABLE OR ATTACHED INFRASTRUCTURE SOFTWARE ENGINEER: No RADIOLOGY DEPARTMENT: MR; Exam(s) Completed: Cardiac: Cardiac PERIPHERAL IV DATA: Site assessment: Clean,Dry and Intact, Site disposition Discontinued SIGNED BY: RT Rod(R) December 28, 2024 8:59 AM documented [facility] NoteHNO ID: [id number] Author: TORI VARGAS RN Service: Radiology Author [...] Massey DATE: December 28, 2024 TIME: 8:37 [facility]03-04-2025 NoteHNO ID: [id number] Author: GUERITA GRIGGS RT(R) Service: Radiology Author Type: High School Science Teacher Type: Progress Notes Filed: 12/28/2024 09:01 Note [...] PATIENT PRESENTS WITH AN IMPLANTABLE OR ATTACHED INFRASTRUCTURE SOFTWARE ENGINEER: No RADIOLOGY DEPARTMENT: MR; Exam(s) Completed: Cardiac: Cardiac PERIPHERAL IV DATA: Site assessment: Clean,Dry and Intact, Site disposition Discontinued SIGNED BY: RT Rod(R) December 28, 2024 8:59 [facility]02-12-2025 NoteCardiology Clinic Note HPI: Vashti Massey is [...] incident. He's scheduled for cardiac MRI at [facility] in a few weeks. Denies chest pain, [...] y.o. male with Palpitations (more content not included)...[facility]01-13-2025 Hospital Discharge instructions Patient Education 11/08/2024 09:50:23 [...] urethra. Follow these instructions at home: Take cfws-tux-qiymvuo and prescription medicines only as told by [...] provider. Document Revised: 05/01/2022 Document Reviewed: 05/01/2022 [employer] Patient Education 2023 e-channel. Follow Up Care 11/01/2024 13:12:14 With:JAROCHO POST MD, URL Address: When: Unknown Comments:Appointment has already been scheduled [facility] 01-13-2025 NotePatient Education Urology Benign Prostatic Hyperplasia [...] Follow these instructions at home: ??? Take suuf-vau-roakjei and prescription medicines only as told by [...] symptoms do not get (more content not included)...[facility] History of Present illness Narrative* Suellen Cooper [...] discuss lap amairani. Likely inpatient. Came from [facility]. Suellen Cooper MD PhD 11/02/24 9:50 AM documented in this [facility] Work Phone: 1(637) 622-283701-07-2025 History of Present illness Narrative* Sarah Villareal [...] nodules. Sarah Villareal MD documented in this [facility] Work Phone: 1(865) 490-740812-30-2024 Hospital Discharge instructions Patient Education 10/25/2024 11:18:58 [...] urethra. Follow these instructions at home: Take inem-svz-qldhvxv and prescription medicines only as told by [...] provider. Document Revised: 05/01/2022 Document Reviewed: 05/01/2022 [employer] Patient Education 2023 e-channel. Follow Up Care 10/12/2024 13:12:51 With:SEJAL TOWNSEND, VAN AVENDAÑO Address: When: Unknown [facility] 12-30-2024 NotePatient Education Urology Benign Prostatic Hyperplasia [...] Follow these instructions at home: ??? Take zbdp-fcl-vrgydxj and prescription medicines only as told by [...] symptoms do not get (more content not included)...[facility]12-[facility] Evaluation note* Diagnosis Onset Date Resolution Status Admit Date Acute UTI acute October 06, 2024 8:35pm BPH loc w urin obs/LUTS acute D ecember 2023 8:35pm Bradycardia acute September 8:35pm Complicated UTI (urinary tra ct infection) acute October 06, 2 024 8:35pm Cyst, kidney, acquired acute De cember 2023 8:35pm ESBL (extended spectrum beta-lactamase) producing bacteria infection acute September 8:35pm Hematuria acute October 06, 2024 8:35pm HTN (hypertension) acute Decemb er 2023 8:35pm Hypoxia acute October 06, 2024 8:35pm Normocytic anemia acute Decembe r 2023 8:35pm Renal cyst, acquired, left acute October 06, 2024 8:35pm T2DM (type 2 diabetes mellitus) acute October 06 2 024 8:35pm Acute blood loss anemia resolved D ec2023 8:35pm Hypomagnesemia resolved September 262023 8:35pm Left renal mass resolved October 06, 2024 8:35pm [facility] Work Phone: 1(558) 698-899412-10-2024 History of Present illness Narrative* Mehnaz Campos, PT - 10/05/2024 12:38 PM EST Physical Therapy Therapy Communication Note Patient Name: Vashti Massey Department: [address] Room: [address] [place] [address] Today's Date: 10/05/2024 Discipline: Physical Therapy Comment: PT orders received, chart reviewed. Pt is LTC resident at [facility] and will return when medically ready. Pt without acute skilled therapy needs at this time. Will DC OT orders. 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 N Transportation Needs In the past 12 months, has lack of transportation kept you from medical appointments or from getting medications? no In the past 12 months, has lack of transportation kept you from meetings, work, or from getting things needed for daily living? No Voice left for Jessica Ulrich at [facility] to verify patient's admission status half-way or skilled. Facility number; [phone] . Voice mail left for emergency contact, daughter Bhumika at [phone]. Message sent to [facility] to send a return referral to [facility] to return today. 1150: I spoke with patient's daughter, Bhumika [phone] and she confirmed her dad will return to [facility] (fax: [phone]). Facility can accept the patient's return today. 1330: Stretcher transport arranged for [place] today at 4:30 . Patient's daughter, Bhumika notified,bedside and facility notified. * Gricelda ePrea MD - 10/04/2024 7:22 PM EST Vashti Massey is a 69 y.o. male on day 2 of admission presenting with Hematuria. Subjective No cp Objective Current Facility-Administered Medications: acetaminophen (Tylenol) tablet 650 mg, 650 mg, oral, q6h PRN, Hong Tello, EP SPECIALIST- SKINNING MACHINE FEEDER, 650 mg at 10/03/24 1440 [START ON 10/05/2024] aspirin EC tablet 81 mg, 81 mg, oral, Daily, Tea Vargas APRN-SKINNING MACHINE FEEDER atorvastatin (Lipitor) tablet 40 mg, 40 mg, oral, Nightly, Yamileth Gilman PA-C bisacodyl (Dulcolax) EC tablet 10 mg, 10 mg, oral, Daily, Hong Tello, EP SPECIALIST-SKINNING MACHINE FEEDER, 10 mg at 10/04/24 0928 dextrose 50 % injection 12.5 g, 12.5 g, intravenous, q15 min PRN, Hong Tello, EP SPECIALIST-SKINNING MACHINE FEEDER dextrose 50 % injection 25 g, 25 g, intravenous, q15 min PRN, Hong Tello, EP SPECIALIST-SKINNING MACHINE FEEDER gabapentin (Neurontin) capsule 100 mg, 100 mg, oral, TID, CHANDA Garcia, 100 mg at 10/04/24 1733 gadoterate meglumine (Dotarem) 0.5 mmol/mL contrast injection 17 mL, 17 mL, intravenous, Once in imaging, Gricelda Perea MD glucagon (Glucagen) injection 1 mg, 1 mg, intramuscular, q15 min PRN, Hong Grant APRN-YUKI glucagon (Glucagen) injection 1 mg, 1 mg, [...] Yamileth Gilman PA-C, 400 mg at 10/04/24 1733 melatonin tablet 3 mg, 3 mg, oral, Nightly PRN, ALYSON Rivera, 3 mg at 10/03/24 211 metoprolol succinate XL (Toprol-XL) 24 hr tablet 50 mg, 50 mg, oral, Daily, Yamileth Gilman PA-C,50 mg at 10/04/24 1733 nicotine (Nicoderm CQ) 21 mg/24 hr patch 1 patch, 1 patch, transdermal, Daily, 1 patch at 10/04/24 0928 FOLLOWED BY [START ON 11/13/2024] nicotine (Nicoderm CQ) 14 mg/24 hr patch 1 patch, 1 patch,transdermal, Daily FOLLOWED BY [START ON 11/27/2024] nicotine (Nicoderm CQ) 7 mg/24 hr patch 1 patch, 1 patch, transdermal, Daily, Hong Tello, EP SPECIALIST-SKINNING MACHINE FEEDER pantoprazole (ProtoNix) EC tablet 40 mg, 40 mg, oral, Daily before breakfast, Hong Holdeni, EP SPECIALIST-SKINNING MACHINE FEEDER, 40 mg at 10/04/24 0603 polyethylene glycol (Glycolax, Miralax) packet 17 g, 17 g, oral, Daily, Hong Tello, EP SPECIALIST-SKINNING MACHINE FEEDER, 17 gat 10/03/24 0852 sennosides (Senokot) tablet 17.2 mg, 2 tablet, oral, Daily, Hong Holdeni, EP SPECIALIST- SKINNING MACHINE FEEDER, 17.2 mg at 10/04/24 0928 tamsulosin (Flomax) 24 hr capsule 0.4 mg, 0.4 mg, oral, Daily, Hong Tello, EP SPECIALIST-SKINNING MACHINE FEEDER, 0.4 mg at 10/04/24 0928 [START ON 10/05/2024] ticagrelor (Brilinta) tablet 90 mg, 90 mg, oral, BID, Tea Vargas EP SPECIALIST-SKINNING MACHINE FEEDER traZODone (Desyrel) tablet 25 mg, 25 mg, [...] urology. Gricelda Perea MD * Soraya Flannery, NANCY-SKINNING MACHINE FEEDER - 10/04/2024 3:32 PM EST Vashti Massey [...] per CT scan. COMPARISON: None. ACCESSION NUMBER(S): [id number] ORDERING CLINICIAN: YAMILETH GILMAN TECHNIQUE: Multiple images [...] Silvio Barksdale 10/04/2024 10:50 AM Dictation workstation: [id number] ECG 12 Lead Result Date: 10/02/2024 Sinus bradycardia Moderate voltage criteria for LVH, may be normal variant No previous ECGs available Reconfirmed by Luis Noel ([id number]) on 10/02/2024 3:37:[address] abdomen pelvis wo IV contrast Result Date: 10/02/2024 Interpreted By: Jermaine Beckford, STUDY: CT ABDOMEN PELVIS WO IV CONTRAST; 10/02/2024 8:17 am INDICATION: Signs/Symptoms:hematuria with clots COMPARISON: None ACCESSION NUMBER(S): [id number] ORDERINGCLINICIAN: HONG GRANT TECHNIQUE: Spiral axial unenhanced [...] Jermaine Beckford 10/02/2024 10:27 AM Dictation workstation: [id number] Plan #Gross hematuria - Can manually irrigate Q4 and PRN as needed to maintain patency of cyr - OK resume anticoagulation tomorrow 10/05 - CT A/P completed - results as above - H&H stable #Urinary retention - Chronic cyr catheter - Recommend cystoscopy as outpatient to evaluate hematuria. Plan of care discussed with Dr. Jankowksi and urology will sign off. Please call [...] 650 mg, oral, q6h PRN, Hong Tello, EP SPECIALIST- SKINNING MACHINE FEEDER, 650 mg at 10/03/24 0851 bisacodyl (Dulcolax) EC tablet 10 mg, 10 mg, oral, Daily, Hong Tello, EP SPECIALIST-SKINNING MACHINE FEEDER, 10 mg at 10/03/24 0851 dextrose 50 % injection 12.5 g, 12.5 g, intravenous, q15 min PRN, Hong Tello, EP SPECIALIST-SKINNING MACHINE FEEDER dextrose 50 % injection 25 g, 25 g, intravenous, q15 min PRN, Hong Tello, EP SPECIALIST-SKINNING MACHINE FEEDER glucagon (Glucagen) injection 1 mg, 1 mg, intramuscular, q15 min PRN, Hong Tello, EP SPECIALIST-SKINNING MACHINE FEEDER glucagon (Glucagen) injection 1 mg, 1 mg, intramuscular, q15 min PRN, Hong Tello, EP SPECIALIST-SKINNING MACHINE FEEDER glycine 1.5 % irrigation solution 3,000 mL, 3,000 mL, irrigation, Continuous, Yamileth Gilman PA-C, 3,000 mL at 10/02/24 1748 insulin lispro injection 0-10 Units, 0-10 Units, subcutaneous, Before meals & nightly, Hong Tello, EP SPECIALIST-SKINNING MACHINE FEEDER, 2 Units at 10/03/24 1322 melatonin tablet 3 mg, 3 mg, oral, Nightly PRN, Hong Tello, EP SPECIALIST-SKINNING MACHINE FEEDER, 3 mg at 10/02/24 2126 nicotine (Nicoderm CQ) 21 mg/24 hr patch 1 patch, 1 patch, transdermal, Daily, 1 patch at 10/03/24 0856 FOLLOWED BY [START ON 11/13/2024] nicotine (Nicoderm CQ) 14 mg/24 hr patch 1 patch, 1 patch,transdermal, Daily FOLLOWED BY [START ON 11/27/2024] nicotine (Nicoderm CQ) 7 mg/24 hr patch 1 patch, 1 patch, transdermal, Daily, Hong Tello, EP SPECIALIST-SKINNING MACHINE FEEDER pantoprazole (ProtoNix) EC tablet 40 mg, 40 mg, oral, Daily before breakfast, Hong Tello, EP SPECIALIST-SKINNING MACHINE FEEDER, 40 mg at 10/03/24 0614 polyethylene glycol (Glycolax, Miralax) packet 17 g, 17 g, oral, Daily, Hong Tello, EP SPECIALIST-SKINNING MACHINE FEEDER, 17 gat 10/03/24 0852 sennosides (Senokot) tablet 17.2 mg, 2 tablet, oral, Daily, Hong Tello, EP SPECIALIST- SKINNING MACHINE FEEDER, 17.2 mg at 10/03/24 0852 tamsulosin (Flomax) 24 hr capsule 0.4 mg, 0.4 mg, oral, Daily, Hong Tello, EP SPECIALIST-SKINNING MACHINE FEEDER, 0.4 mg at 10/03/24 0852 Physical Exam [...] Yellow, Dark-Yellow Appearance, Urine Clear Clear Specific [place], Urine 1.011 1.005 - 1.035 pH, Urine [...] closely. Gricelda Perea MD [facility] Work Phone: 1(669) 300-832812-10-2024 Plan of care note* Care Plan - Tea Vargas, EP SPECIALIST-SKINNING MACHINE FEEDER - 10/05/2024 12:29 PM EST Medical house [...] theirdischarge packet as instructed by the attending. [facility] Work Phone: 1(826) 298-849712-10-2024 Miscellaneous Notes* Care Plan - ALYSON Jaime [...] 5:12 AM DISCH DATE: RESPONDING PROVIDER #: [id number] PROVIDER RESPONSE TEXT: Bleeding/Gross Hematuria due to [...] 10.5, 11.0 from 10/02-10/05[place] [id number] AM states Hematuria , Chronic indwelling Cyr [...] throughout shift Outcome: Progressing [facility] Work Phone: 1(480) 790-799312-10-2024 Hospital Discharge instructions* Discharge Instructions* ALYSON Jaime [...] tolerate the MR abdomen. documented in this [facility]Fire[facility] Work Phone: 1(630) 146-332112-10-2024 Note* Documentation Clarification Note - Gricelda Perea MD - 10/05/2024 10:45 AM EST PATIENT: VASHTI MASSEY : 1955 ADMIT DATE: 10/02/2024 5:12 AM DISCH DATE: RESPONDING PROVIDER #: [id number] PROVIDER RESPONSE TEXT: Bleeding/Gross Hematuria due to [...] presence of BPH w/urinary retention, chronic indwelling ycr catheter. Clinical findings: Hgb: 10.8, 10.6, 10.6. 10.5, 11.0 from 10/02-10/05. HP by IM AM states Hematuria , Chronic indwelling Cyr [...] by: GRICELDA PEREA MD 10/05/2024 10:44 AM [facility] Work Phone: 1(223) 176-995112-10-2024 Plan of care note* Care Plan - Richelle Mehta RN - 10/05/2024 5:09 AM EST Problem: Skin Goal: Prevent/manage excess moisture Outcome: Progressing Goal: Prevent/minimize sheer/friction injuries Outcome: Progressing Flowsheets (Taken 10/05/2024 2895) Prevent/minimize sheer/friction injuries: Use pull sheet HOB [...] include Pt will remain free from hematuria [facility]12-09-2024 Nurse Note* Tori Norwood RN - [...] irrigated with clear return, no clots noted. [facility]12-09-2024 Nurse Note* Tori Norwood RN - [...] off unit for MRCP documented in this [facility] Work Phone: [phone] 945-361312-09-2024 Plan of care note* Care Plan - Tori Norwood RN - 10/04/2024 6:02 PM EST Problem: Obstructive: Kidney Stones, Hydronephrosis, BPH Goal: Relieve obstruction Outcome: Progressing Problem: Skin Goal: Participates in plan/prevention/treatment measures 10/04/2024 180 by Tori Norwood RN Outcome: Met Flowsheets (Taken 10/04/20241800) Participates in plan/prevention/treatment measures: Elevate heels Problem: Fall/Injury Goal: Not fall by end of shift Outcome: Met [facility] Work Phone: 1([phone]) 968-277212-09-2024 Nurse Note* Tori Norwood RN - 10/04/2024 2:23 PM EST 1420 Pt off unit for MRCP [facility] Work Phone: [phone]) 134-301012-09-2024 Plan of care note* Care Plan - [...] improved pain control throughout shift Outcome: Progressing [facility]12[facility]08[facility]24 Consult note* Wes Vaughn MD - 10/03/2024 7:23 AM EST Reason For Consult Gross hematuria History Of Present Illness Vashti Massey is a 69 y.o. male presenting with gross hematuria with suprapubic discomfort, initially presenting to outside hospital on 09/29/2024 - Bleeding recurred within 6 hours of returning to extended care facility - Suprapubic pain improved since CBI restart at [place] [facility] - Multiple large clots removed via [...] care of this patient. Wes Vaughn MD [facility] Work Phone: [phone]) 506-520212-08-2024 Consult note* Wes Vaughn MD - 10/03/2024 7:23 AM EST Reason For Consult Gross hematuria History Of Present Illness Vashti Massey is a 69 y.o. male presenting with gross hematuria with suprapubic discomfort, initially presenting to outside hospital on 09/29/2024 - Bleeding recurred within 6 hours of returning to extended care facility - Suprapubic pain improved since CBI restart at [place] [facility] - Multiple large clots removed via [...] patient. Wes Vaughn MD documented in this [facility] Work Phone: [phone]) 960-770412-08-2024 Plan of care note* Care Plan - [...] improved pain control throughout shift Outcome: Progressing [facility] Work Phone: 1([phone]) 771-628112-07-2024 History and physical note* Gricelda Perea MD - 10/02/2024 11:16 AM EST History Of Present Illness Vashti Massey is a 69 y.o. M from [facility] with PMH of HTN, HLD, T2DM, CVA, BPH, chronic indwelling Cyr catheter due to urinary retention presented to ER in [facility] due to hematuria. Patient was apparently in the ER few days ago with a similar complaint and was sent back to [facility] from where he came back to ER again.. Patient apparently was on Brilinta for his previous stroke which was recently DC'd due to hematuria. There was no obvious fever or chills. Patient was transferred to [facility] as there was no urologist available in [facility]. He was admitted on 3 S. [...] 650 mg, oral, q6h PRN, Hong Tello, EP SPECIALIST- SKINNING MACHINE FEEDER, 650 mg at 10/02/24 0916 bisacodyl (Dulcolax) EC tablet 10 mg, 10 mg, oral, Daily, Hong Tello, EP SPECIALIST-SKINNING MACHINE FEEDER, 10 mg at 10/02/2418 dextrose 50 % injection 12.5 g, 12.5 g, intravenous, q15 min PRN, Hong Tello, EP SPECIALIST-SKINNING MACHINE FEEDER dextrose 50 % injection 25 g, 25 g, intravenous, q15 min PRN, Hong Tello, EP SPECIALIST-SKINNING MACHINE FEEDER glucagon (Glucagen) injection 1 mg, 1 mg, intramuscular, q15 min PRN, Hong Tello, EP SPECIALIST-SKINNING MACHINE FEEDER glucagon (Glucagen) injection 1 mg, 1 mg, intramuscular, q15 min PRN, Hong Tello, EP SPECIALIST-SKINNING MACHINE FEEDER insulin lispro injection 0-10 Units, 0-10 Units, subcutaneous, Before meals & nightly, Hong Tello, EP SPECIALIST-SKINNING MACHINE FEEDER, 2 Units at 10/02/24 0927 melatonin tablet 3 mg, 3 mg, oral, Nightly PRN, Hnog Tello, EP SPECIALIST-SKINNING MACHINE FEEDER nicotine (Nicoderm CQ) 21 mg/24 hr patch 1 patch, 1 patch, transdermal, Daily, 1 patch at 10/02/24 0918 FOLLOWED BY [START ON 11/13/2024] nicotine (Nicoderm CQ) 14 mg/24 hr patch 1 patch, 1 patch,transdermal, Daily FOLLOWED BY [START ON 11/27/2024] nicotine (Nicoderm CQ) 7 mg/24 hr patch 1 patch, 1 patch, transdermal, Daily, Hong Tello, EP SPECIALIST-SKINNING MACHINE FEEDER pantoprazole (ProtoNix) EC tablet 40 mg, 40 mg, oral, Daily before breakfast, Hong Tello, EP SPECIALIST-SKINNING MACHINE FEEDER, 40 mg at 10/02/24 0641 polyethylene glycol (Glycolax, Miralax) packet 17 g, 17 g, oral, Daily, Hong Tello, EP SPECIALIST-SKINNING MACHINE FEEDER, 17 gat 10/02/24 0918 sennosides (Senokot) tablet 17.2 mg, 2 tablet, oral, Daily, Hong Tello, EP SPECIALIST- SKINNING MACHINE FEEDER, 17.2 mg at 10/02/24 0918 tamsulosin (Flomax) 24 hr capsule 0.4 mg, 0.4 mg, oral, Daily, Hong Tello, EP SPECIALIST-SKINNING MACHINE FEEDER, 0.4 mg at 10/02/24 0918 Review of [...] Rate 55 BPM Atrial Rate 55 BPM CO Interval 168 ms QRS Duration 106 ms QT Interval 434 ms QTC Calculation(Bazett) 415 ms P [place] 13 degrees R [place] -25 degrees T [place] -13 degrees QRS Count 9 beats Q Onset 225 ms P Onset 141 ms P Offset 203 ms T Offset 442 ms QTC Fredericia 421 ms POCT GLUCOSE Result Value Ref Range POCT Glucose 173 (H) 74 - 99 mg/dL Radiology CT ABDOMEN PELVIS WO IV CONTRAST; 10/02/2024 8:17 am INDICATION: Signs/Symptoms:hematuria with clots COMPARISON: None ACCESSION NUMBER(S): [id number] ORDERING CLINICIAN: HONG GRANT TECHNIQUE: Spiral axial [...] DVT prophylaxis, follow closely Gricelda Perea MD [facility] Work Phone: [phone] 933-919012-07-2024 History and physical note* Gricelda Perea MD - 10/02/2024 11:16 AM EST History Of Present Illness Vashti Massey is a 69 y.o. M from [facility] with PMH of HTN, HLD, T2DM, CVA, BPH, chronic indwelling Cyr catheter due to urinary retention presented to ER in [facility] due to hematuria. Patient was apparently in the ER few days ago with a similar complaint and was sent back to [facility] from where he came back to ER again.. Patient apparently was on Brilinta for his previous stroke which was recently DC'd due to hematuria. There was no obvious fever or chills. Patient was transferred to [facility] as there was no urologist available in [facility]. He was admitted on 3 S. [...] 650 mg, oral, q6h PRN, Hong Tello, EP SPECIALIST- SKINNING MACHINE FEEDER, 650 mg at 10/02/24 0916 bisacodyl (Dulcolax) EC tablet 10 mg, 10 mg, oral, Daily, Hong Tello, EP SPECIALIST-SKINNING MACHINE FEEDER, 10 mg at 10/02/24 0918 dextrose 50 % injection 12.5 g, 12.5 g, intravenous, q15 min PRN, Hong Tello, EP SPECIALIST-SKINNING MACHINE FEEDER dextrose 50 % injection 25 g, 25 g, intravenous, q15 min PRN, Hong Tello, EP SPECIALIST-SKINNING MACHINE FEEDER glucagon (Glucagen) injection 1 mg, 1 mg, intramuscular, q15 min PRN, Hong Tello, EP SPECIALIST-SKINNING MACHINE FEEDER glucagon (Glucagen) injection 1 mg, 1 mg, intramuscular, q15 min PRN, Hong Tello, EP SPECIALIST-SKINNING MACHINE FEEDER insulin lispro injection 0-10 Units, 0-10 Units, subcutaneous, Before meals & nightly, Hogn Tello, EP SPECIALIST-SKINNING MACHINE FEEDER, 2 Units at 10/02/24 0927 melatonin tablet 3 mg, 3 mg, oral, Nightly PRN, Hong Tello, EP SPECIALIST-SKINNING MACHINE FEEDER nicotine (Nicoderm CQ) 21 mg/24 hr patch 1 patch, 1 patch, transdermal, Daily, 1 patch at 10/02/24917 FOLLOWED BY [START ON 11/13/2024] nicotine (Nicoderm CQ) 14 mg/24 hr patch 1 patch, 1 patch,transdermal, Daily FOLLOWED BY [START ON 11/27/2024] nicotine (Nicoderm CQ) 7 mg/24 hr patch 1 patch, 1 patch, transdermal, Daily, Hong Tello, EP SPECIALIST-SKINNING MACHINE FEEDER pantoprazole (ProtoNix) EC tablet 40 mg, 40 mg, oral, Daily before breakfast, Hong Tello, EP SPECIALIST-SKINNING MACHINE FEEDER, 40 mg at 10/02/24 0641 polyethylene glycol (Glycolax, Miralax) packet 17 g, 17 g, oral, Daily, Hong Tello, EP SPECIALIST-SKINNING MACHINE FEEDER, 17 gat 10/02/2418 sennosides (Senokot) tablet 17.2 mg, 2 tablet, oral, Daily, Hong Tello, EP SPECIALIST- SKINNING MACHINE FEEDER, 17.2 mg at 12/07/24 0918 tamsulosin (Flomax) 24 hr capsule 0.4 mg, 0.4 mg, oral, Daily, Hong Grant, EP SPECIALIST-SKINNING MACHINE FEEDER, 0.4 mg at 10/02/24 0918 Review of [...] Rate 55 BPM Atrial Rate 55 BPM CO Interval 168 ms QRS Duration 106 ms QT Interval 434 ms QTC Calculation(Bazett) 415 ms P [place] 13 degrees R [place] -25 degrees T [place] -13 degrees QRS Count 9 beats Q Onset 225 ms P Onset 141 ms P Offset 203 ms T Offset 442 ms QTC Fredericia 421 ms POCT GLUCOSE Result Value Ref Range POCT Glucose 173 (H) 74 - 99 mg/dL Radiology CT ABDOMEN PELVIS WO IV CONTRAST; 10/02/2024 8:17 am INDICATION: Signs/Symptoms:hematuria with clots COMPARISON: None ACCESSION NUMBER(S): [id number] ORDERING CLINICIAN: HONG GRANT TECHNIQUE: Spiral axial [...] follow closely Gricelda Perea MD * Hong Grant APRN-SKINNING MACHINE FEEDER - 10/02/2024 5:31 AM EST History Of Present Illness Vashti Massey is a 69 y.o. 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 Outside ER [...] improved since CBI was restarted at the [place] [facility]. He mentions that multiple large clots [...] pain, nausea, vomiting, diarrhea. ED Course at [facility]: Vital signs: Temp. 98.2F, HR 70 bpm, RR 23, BP 132/63, SPO2 97% on room air CMP: Glucose 167, Na+ 139, K+ 4.0, BUN 23, creatinine 0.72, EGFR >60 CBC w/diff: WBC 5.0, H&H 10.8/33.4 respectively, platelet 264 Troponin I : 6.2, 5.8 (WNL per OSH range) EKG: Sinus rhythm, ventricular rate 61 bpm, CO 162 ms, QRS 108 ms, QTc [address] elevation or depression noted. Disposition: Patient was transferred to [facility] for concern of gross hematuria requiring CBI [...] Plan: Code Status: DNR and No Intubation. [place] DNR form completed and attached to EMR [...] physicians. This note has been transcribed using [employer] voice recognition system and there is a possibility of unintentional typing misprints. Any information found to be copied from previous providers is done in the best interest of the patient to provide accurate, quality, and continuity of care. I spent 60 minutes in the professional and overall care of this patient. ALYSON Rivera [facility] documented in this [facility] Work Phone: 1(394) 978-859812-07-2024 History and physical note* ALYSON Rivera - 10/02/2024 5:31 AM EST History Of Present Illness Vashti Massey is a 69 y.o. 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 Outside ER [...] improved since CBI was restarted at the [place] [facility]. He mentions that multiple large clots [...] pain, nausea, vomiting, diarrhea. ED Course at [facility]: Vital signs: Temp. 98.2F, HR 70 bpm, RR 23, BP 132/63, SPO2 97% on room air CMP: Glucose 167, Na+ 139, K+ 4.0, BUN 23, creatinine 0.72, EGFR >60 CBC w/diff: WBC 5.0, H&H 10.8/33.4 respectively, platelet 264 Troponin I : 6.2, 5.8 (WNL per OSH range) EKG: Sinus rhythm, ventricular rate 61 bpm, CO 162 ms, QRS 108 ms, QTc [address] elevation or depression noted. Disposition: Patient was transferred to [facility] for concern of gross hematuria requiring CBI [...] Plan: Code Status: DNR and No Intubation. [place] DNR form completed and attached to EMR [...] physicians. This note has been transcribed using [employer] voice recognition system and there is a possibility of unintentional typing misprints. Any information found to be copied from previous providers is done in the best interest of the patient to provide accurate, quality, and continuity of care. I spent 60 minutes in the professional and overall care of this patient. ALYSON Rivera [facility]. [place] [facility] Work Phone: 1(740) 957-144712-06-2024 Miscellaneous Notes* Telephone Encounter - Ally Juarez - 10/01/2024 11:28 PM EST Contract: 195 RE Hematuria * Telephone Encounter - Ally Juarez - 10/01/2024 11:[address] Moreno cell and Connected Call documented in this encounterSelect [facility] NorthGl[facility] [id number] Telephone encounter Note* Telephone Encounter - Ally Juarez - 10/01/2024 11:28 PM EST Contract: 195 RE Hematuria [facility]12-06-2024 Telephone encounter Note* Telephone Encounter - Ally Juarez - 10/01/2024 11:[address] Moreno cell and Connected Call [facility]12-06-2024 Miscellaneous Notes* Telephone Encounter - Kathrin McMburlingame - 10/01/2024 10:23 PM EST Contract: 195 Bhumika @[facility] called regarding urinary retention & blood in urine @[place] [facility] * Telephone Encounter - Kathrin [facility] - 10/01/2024 10:23 PM EST [id number] I called Dr Moreno & transferred her to Bhumika @[facility] documented in [facility] Telephone encounter Note* Telephone Encounter - Kathrin Luceroeunice - 10/01/2024 10:23 PM EST Contract: 195 Bhumika @[facility] called regarding urinary retention & blood in urine @[place] [place] [facility]12-06-2024 Telephone encounter Note* Telephone Encounter - Kathrin Madison Logiceunice - 10/01/2024 10:23 PM EST [id number] I called Dr Moreno & transferred her to Bhumika @[facility]11-14-2024 NoteCardiology Clinic Note Chief Complaint: New Patient [...] cardiology with any questions (more content not included)...[facility]08-01-2024 Miscellaneous Notes* Telephone Encounter - Kathya Cordero CMA - 05/27/2024 3:29 PM EDT Rn Imaging cancelled Pt's appointment with Dr. Rojas today as he is currently in ED. Please call to reschedule once DC. * Telephone Encounter - Tori Moya - 05/27/2024 3:29 PM EDT Patient is still admitted * Telephone Encounter - Tori Moya - 05/27/2024 3:29 PM EDT Spoke with Bhumika and rescheduled appt she's going to assist with Video [facility]Hol[facility] [employer] [facility] [id number] Telephone encounter Note* Telephone Encounter - Kathya Cordero CMA - 05/27/2024 3:29 PM EDT Rn Imaging cancelled Pt's appointment with Dr. Rojas today as he is currently in ED. Please call to reschedule once DC. [facility] [employer] [id number] Telephone encounter Note* Telephone Encounter - Tori Moya - 05/27/2024 3:29 PM EDT [facility] is [id number] Telephone encounter Note* Telephone Encounter - Tori Moya - 05/27/2024 3:29 PM EDT Spoke with Bhumika and rescheduled appt she's going to assist with Video [employer]06-15-2024 Hospital course Narrative* Emilia Hidalgo MD - 04/10/2024 12:47 PM EDT Discharge Summary Patient ID: Vashti Massey Acct: [id number] Patient's PCP: ELEAZAR MAYORGA DO Admit Date: 04/09/2024 Discharge Date: 04/10/2024 Admitting Physician: Emilia Hidalgo MD Discharge Physician: Emilia Hidalgo MD Discharge Diagnoses: Primary Problem Cerebrovascular accident (CVA) due to occlusion of right middle cerebral artery ([facility]) Principal Problem: Cerebrovascular accident (CVA) due to occlusion of right middle cerebral artery ([facility]) Active Problems: Type 2 diabetes mellitus with hyperglycemia, with long-term current use of insulin ([facility]) Mixed hyperlipidemia Gait instability Stroke-like symptoms Acute renal failure with acute renal cortical necrosis superimposed on stage 3a chronic kidney disease ([facility]) Past Medical History: Diagnosis Date Arthritis Cataract Diabetes ([facility]) Diabetes mellitus type 2, controlled ([facility]) Fractures The patient was seen and examined [...] fracture. Radiology does confirm this. Transfer to [facility] under the care of stroke team for possible angiography. Today Patient was seen and examined at bedside today. Hemodynamically stable. No chest pain, shortness ofbreath, fever, chills, nausea, vomiting, palpitations, or abdominal pain reported. Patient still having left-sided weakness per patient's sister it is getting worse. Discussed with tele stroke team through epic chat. Plan to transferred to [facility] for further evaluation and management by stroke [...] than peripheral volume loss. Bilateral hippocampal atrophy, [id number] in severity. Few scattered foci of T2/FLAIR [...] artery narrowing is assessed using the [place] Symptomatic Carotid Endarterectomy Trial (NASCET) method. Comparison: [...] AM Troponin I BNP Disposition: Transferred to [facility] Discharged Condition: stable Follow Up: ELEAZAR MAYORGA [...] Dr. ELEAZAR MAYORGA DO documented in this encounterMarymount Hospital06-15-2024 Progress note* PT/OT/PRINT AND PATTERN DESIGNER - Bhumika Gee, PT - 04/10/2024 12:17 PM EDT Physical Therapy Evaluation Discharge Recommendations PT Recommendations: Senior Living Facility Home Recommendations: 24 hour caregiver support for: Post Discharge Therapy Recommendations: Home Physical Therapy SNF/ECF Comments: Patient would benefit from SNF post hospital discharge for further rehabilitationfor safety with balance, transfers, and gait training. Reports independence prior to stroke. Unableto perform transfers or gait this date due to safety concerns. Asset Protection Agent Support for-: Mobility Deficits, ADL Deficits Past Medical History: Diagnosis Date Arthritis Cataract Diabetes ([facility]) Diabetes mellitus type 2, controlled ([facility]) Fractures Past Surgical History: [...] 6 Clicks: Basic Mobility Raw Score: 10 CMS G Code Modifier: CL Modified [place] Level of Disability: Moderately severe disability 0= [...] pure whick catheter) Weight Bearing Status: (WBAT) Telemetry/Land Conservation Specialist: Yes Oxygen Used: room air Other: Left [...] hyperglycemia, with long-term current use of insulin ([facility]) Mixed hyperlipidemia Gait instability Acute renal failure with acute renal cortical necrosis superimposed on stage 3a chronic kidney disease ([facility]) [facility] [employer] [id number] Miscellaneous Notes* PT/OT/PRINT AND PATTERN DESIGNER - Bhumika Gee, PT - 04/10/2024 12:17 PM EDT Physical Therapy Evaluation Discharge Recommendations PT Recommendations: Senior Living Facility Home Recommendations: 24 hour caregiver support for: Post Discharge Therapy Recommendations: Home Physical Therapy SNF/ECF Comments: Patient would benefit from SNF post hospital discharge for further rehabilitationfor safety with balance, transfers, and gait training. Reports independence prior to stroke. Unableto perform transfers or gait this date due to safety concerns. Asset Protection Agent Support for-: Mobility Deficits, ADL Deficits Past Medical History: Diagnosis Date Arthritis Cataract Diabetes ([facility]) Diabetes mellitus type 2, controlled ([facility]) Fractures Past Surgical History: [...] 6 Clicks: Basic Mobility Raw Score: 10 [facility] G Code Modifier: CL Modified [place] Level of Disability: Moderately severe disability 0= [...] pure whick catheter) Weight Bearing Status: (WBAT) Telemetry/Land Conservation Specialist: Yes Oxygen Used: room air Other: Left [...] hyperglycemia, with long-term current use of insulin ([facility]) Mixed hyperlipidemia Gait instability Acute renal failure with acute renal cortical necrosis superimposed on stage 3a chronic kidney disease ([facility]) * Telehealth Note - Alexandra Barrientos APRN-YUKI - 04/10/2024 11:50 AM EDT Images from [...] that there are some limitations compared to [id number] evaluations. We elected to proceed. TELESTROKE FOLLOW UP PROGRESS NOTE SUBJECTIVE: Vashti Massey is a 68 y.o. White or male who presented to [facility] with falls. HE also was noted to [...] and admitting physician about transferring patient to [facility]. All agreeable. ROS: Neurological ROS: weakness [...] remains pending - plan for transfer to [facility] - start with stepdown. If CTA [...] on this visit was 35 minutes. I, Alexandra Barrientos APRN-YUKI, assisted with documentation during the assessment of this patient. This patient was discussed with my attending Dr. Rice. [id number] Telestroke FU 35 minutes For any additional questions, please contact the [facility] Telestroke/ Stroke service. [facility]gent Alexandra Barrientos APRN-YUKI 04/10/24 1422 Alexandra Barrientos APRN-YUKI 04/10/24 1422 * Plan of Care - [...] when needed. * Plan of Care - Rosa M [...] supplement as ordered 13. Collaborate with clinical director internal control 14. Include patient/ patient's community relations representative in decisions related to nutrition Outcome: [...] supplement as ordered 13. Collaborate with clinical director internal control 14. Include patient/ patient's community relations representative in decisions related to nutrition Outcome: [...] supplement as ordered 13. Collaborate with clinical director internal control 14. Include patient/ patient's community relations representative in decisions related to nutrition Outcome: [...] that there are some limitations compared to [id number] evaluations. We elected to proceed. 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 Patient presented this morning to [facility] Emergency Department with stroke-like symptoms, [...] Medical History: Diagnosis Date Arthritis Cataract Diabetes ([facility]) Diabetes mellitus type 2, controlled ([facility]) Fractures Past Surgical History: Procedure Laterality Date [...] out GI bleed. Additional Recommendations: Admit to [facility]. We will continue to follow [...] This note was completed using a voice pipe fitter system. Every effort was made to ensure accuracy; however, inadvertent computerized pipe fitter errors may be present In preparation of caring for this patient, IRajesh MD, was the primary provider of care for this patient. I personally reviewed previous medical history, laboratory studies, neuro-imaging, andcompleted a face to face physical assessment on this patient via camera. To the best of my ability,the assessment and plan was discussed with patient and bedside staff. documented in this encounterVermont Psychiatric Care HospitalNovan [id number] Progress note* Telehealth Note - Alexandra Wattersbins, EP SPECIALIST-SKINNING MACHINE FEEDER - 04/10/2024 11:50 AM EDT Images from [...] that there are some limitations compared to gshq-lg-kjem evaluations. We elected to proceed. TELESTROKE FOLLOW UP PROGRESS NOTE SUBJECTIVE: Vashti Massey is a 68 y.o. White or male who presented [facility] with falls. HE also was noted to [...] and admitting physician about transferring patient to [facility]. All agreeable. ROS: Neurological ROS: weakness [...] remains pending - plan for transfer to [facility] - start with stepdown. If CTA [...] For any additional questions, please contact the [facility] Telestroke/ Stroke service. [facility] St[facility] Urgent ALYSON Perez 04/10/24 1422 ALYSON Perez 04/10/24 142 [employer] Work Phone: 1(141) 651-235006-15-2024 Plan of care note* Plan of Care [...] turn self. Will assist inreposition when needed. [facility]06-14-2024 Plan of care note* Plan of Care [...] supplement as ordered 13. Collaborate with clinical director internal control 14. Include patient/ patient's community relations representative in decisions related to nutrition Outcome: Progressing Note: Evaluation of progress towards goal: Patient understands the importance of proper nutrition to aid in healing. [facility]06-14-2024 Plan of care note* Plan of Care [...] supplement as ordered 13. Collaborate with clinical director internal control 14. Include patient/ patient's community relations representative in decisions related to nutrition Outcome: Progressing Note: Evaluation of progress towards goal: Patient understands the importance of proper nutrition to aid in healing. [facility]06-14-2024 History and physical note* Emilia Hidalgo MD - 04/09/2024 1:55 PM EDT [facility] Medicine History and Physical Name: Vashti Massey Acct: [id number] Room: Admit Date: 04/09/2024 PCP: ELEAZAR MAYORGA [...] Medical History: Diagnosis Date Arthritis Cataract Diabetes ([facility]) Diabetes mellitus type 2, controlled ([facility]) Fractures Past Surgical History: Past Surgical History: [...] than peripheral volume loss. Bilateral hippocampal atrophy, lpwt-ww-vxwxgizk in severity. Few scattered foci of T2/FLAIR [...] Carotid artery narrowing isassessed using the [place] Symptomatic Carotid Endarterectomy Trial (NASCET) method. Comparison: [...] hyperglycemia, with long-term current use of insulin ([facility]) Mixed hyperlipidemia Gait instability Acute renal failure with acute renal cortical necrosis superimposed on stage 3a chronic kidney disease ([facility]) Plan: MRI brain noted Plavix given [...] meaning can be extrapolated by contextual diversion. [facility] [employer] [id number] History and physical note* Emilia Hidalgo MD - 04/09/2024 1:55 PM EDT [facility] Medicine History and Physical Name: Vashti Massey Acct: [id number] Room: Admit Date: 04/09/2024 PCP: ELEAZAR MAYORGA [...] Medical History: Diagnosis Date Arthritis Cataract Diabetes ([facility]) Diabetes mellitus type 2, controlled ([facility]) Fractures Past Surgical History: Past Surgical History: [...] than peripheral volume loss. Bilateral hippocampal atrophy, mhpf-iq-tavkbtej in severity. Few scattered foci of T2/FLAIR [...] Carotid artery narrowing isassessed using the [place] Symptomatic Carotid Endarterectomy Trial (NASCET) method. Comparison: [...] hyperglycemia, with long-term current use of insulin ([facility]) Mixed hyperlipidemia Gait instability Acute renal failure with acute renal cortical necrosis superimposed on stage 3a chronic kidney disease ([facility]) Plan: MRI brain noted Plavix given Tele [...] extrapolated by contextual diversion. documented in this encounterMary[facility] Hospital06-[facility] Emergency department Note* Nicolette Estrada CNA - 04/09/2024 11:55 AM EDT Admit Aldo Rodarte, ready to go [facility]06-14-2024 Emergency department Note* Nicolette Jackson CNA - 04/09/2024 11:55 AM EDT Admit Aldo Rodarte, ready to go * Loren Middleton RN [...] Stroke-like symptoms 2. DAISY (acute kidney injury) ([facility]) 3. Anemia, unspecified type 4. Elevated troponin [...] given. The results were discussed with the patient/adult daycare coordinator and they expressed verbal understanding. Patient/adult daycare coordinator understands and agrees with plan. Patient appears stable on final evaluation andwill be admitted at this time. ED Course as of 04/09/24 122FriApr 09, 2024 0827 I did speak with Dr. Ramirez of [...] admission to hospital for potential transfer to [place]. He does recommend permissive hypertension up to [...] ED Course User Index [RW] Yudelka Mcmullen, Clinical Impressions as of 04/09/24 1223 Stroke-like symptoms DAISY (acute kidney injury) ([facility]) Anemia, unspecified type Elevated troponin HPI [...] Nose: Nose normal. No rhinorrhea. Mouth/Throat: Lips: [place]. Mouth: Mucous membranes are moist. Eyes: General: [...] SENSITIVITY 3 HOUR BEDSIDE GLUCOSE ED NIHSS Screening Performed by: Yudelka Mcmullen [...] flush 10 mL (10 mL intravenous Given 04/09/24 08) iohexoL (OMNIPAQUE) 350 mg iodine/mL injection 100 mL (100 mL intravenous Given 04/09/24826) sodium chloride 0.9 % radiology injection (80 mL intravenous Given 04/09/24 08) sodium chloride 0.9 % bolus ( intravenous [...] Medical History: Diagnosis Date Arthritis Cataract Diabetes ([facility]) Diabetes mellitus type 2, controlled ([facility]) Fractures PAST SURGICAL HISTORY Past Surgical History: [...] Yudelka Mcmullen DO 12:23 PM 04/09/24 Yudelka Mcmullen, 04/09/24 0800 Kajalben Denney 04/09/24 0827 Kajalben Denney 04/09/24 0838 Kajalben Denney 04/09/24 0853 Kajalben Denney 04/09/24 0908 Kajalben Denney 04/09/24 1008 Yudelka Mcmullen DO 04/09/24 1132 Yudelka Mcmullen DO 04/09/24 1229 Yudelka Mcmullen, 04/09/24 1233 documented in this encounterMarymount Hospital06-14-2024 Plan of care note * Plan of [...] supplement as ordered 13. Collaborate with clinical director internal control 14. Include patient/ patient's community relations representative in decisions related to nutrition Outcome: Progressing Note: Evaluation of progress towards goal: Patient understands the importance of proper nutrition to aid in healing. T [facility]06-14-2024 Consult note* Telehealth Consult - Rajesh Rice [...] that there are some limitations compared to hvhq-cd-wuia evaluations. We elected to proceed. 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 Patient presented this morning to [facility] Emergency Department with stroke-like symptoms, [...] Medical History: Diagnosis Date Arthritis Cataract Diabetes ([facility]) Diabetes mellitus type 2, controlled ([facility]) Fractures Past Surgical History: [...] out GI bleed. Additional Recommendations: Admit to [facility]. We will continue to follow along In preparation of caring for this patient, IAlexandra APRN-YUKI, assisted with documentation during the assessment of this patient. If you have any further questions please feel free to contact the Telestroke/ Stroke Team. Thank you for asking us to be part of this patient's care. [id number] Telestroke Consult from 30-50 minutes This note was completed using a voice pipe fitter system. Every effort was made to ensure accuracy; however, inadvertent computerized pipe fitter errors may be present In preparation of caring for this patient, I, Rajesh Rice MD, was the primary provider of care for this patient. I personally reviewed previous medical history, laboratory studies, neuro-imaging, andcompleted a face to face physical assessment on this patient via camera. To the best of my ability,the assessment and plan was discussed with patient and bedside staff. [employer] Work Phone: 1(224) 107-234306-14-2024 Emergency department Triage note* Loren Middleton RN - 04/09/2024 9:29 AM EDT Patient presents via EMS as a stroke alert. LKW 10:30 last night. Patient states he had frequent falls yesterday and was not feeling right. [facility]06-14-2024 Emergency department Triage note* Loren Middleton RN - 04/09/2024 8:30 AM EDT Patient presents via EMS as a stroke alert. LKW 10:30 last night. Patient states he had frequent falls yesterday and was not feeling right. [facility]06-14-2024 Physician Emergency department Note* Yudelka Wilmar Kemi, - 04/09/2024 8:00 AM EDTAssociated Order(s): ED [...] given. The results were discussed with the patient/adult daycare coordinator and they expressed verbal understanding. Patient/adult daycare coordinator understands and agrees with plan. Patient appears stable on final evaluation andwill be admitted at this time. ED Course as of 04/09/24 1223 FriApr 09, [id number] I did speak with Dr. Ramirez of [...] admission to hospital for potential transfer to [place]. He does recommend permissive hypertension up to [...] 1223 Stroke-like symptoms DAISY (acute kidney injury) ([facility]) Anemia, unspecified type Elevated troponin HPI Initial evaluation preformed by Dr. Mcmullen at 8:15 AM Vashti Gael Massey 68 y.o. male presents to ED [...] Nose: Nose normal. No rhinorrhea. Mouth/Throat: Lips: [place]. Mouth: Mucous membranes are moist. Eyes: General: [...] SENSITIVITY 3 HOUR BEDSIDE GLUCOSE ED NIHSS Screening Performed by: Yudelka Mcmullen [...] Medical History: Diagnosis Date Arthritis Cataract Diabetes ([facility]) Diabetes mellitus type 2, controlled ([facility]) Fractures PAST SURGICAL HISTORY Past Surgical History: [...] Mcmullen and Dr. Hidalgo (Hospitalist) spoke via [employer] chat about pt's condition and work up [...] Yudelka Mcmullen DO 12:23 PM 04/09/24 Yudelka Mcmullen, 04/09/24 0800 Kajalben Denney 04/09/24 0827 Kajalben Denney 04/09/24 0838 Kajalben Denney 04/09/24 0853 Kajalben Denney 04/09/24 0908 Gamal [facility] 04/09/24 1008 Yudelka Mcmullen, 04/09/24 1132 Yudelka Mcmullen, 04/09/24 1229 Yudelka Mcmullen, DO 04/09/24 1233 [facility]04-18-2024 History of Present illness Narrative* Klaus Yeboah MD - 02/12/2024 8:50 AM EDTAssociated Order(s): Large Joint Injection/Arthrocentesis - PA: R knee Pre-Procedure Diagnose(s): Right knee pain, unspecified chronicity; Arthritis of right knee Post-Procedure Diagnose(s): Right knee pain, unspecified chronicity; Arthritis of right knee Images from the original note were not included. [facility] [address] [facility] [id number] CHART NOTE: 02/12/2024 Chief Complaint: Chief Complaint [...] completeness of the aforementioned history preparedby the lopez practice provider, and I personally performed the [...] next visit. Klaus Yeboah MD Adult Reconstruction [facility] [address] [place] [address], [address] W: [phone] F: [phone] documented in this encounterSelect Medical Specialty [facility] NorthToonimo [facility] [id number] History of Present illness Narrative* Klaus Yeboah MD - 12/30/2023 10:15 AM EST Images from the original note were not included. Vashti Massey 1955 [id number] Last encounter with me: Visit date not [...] Medical History: Diagnosis Date Arthritis Cataract Diabetes ([facility]) Diabetes mellitus type 2, controlled ([facility]) Fractures Past Surgical History: [...] hip xrays.. Klaus Yeboah MD Adult Reconstruction [facility] [address] [place] [address], [address] W: [phone] F: [phone] documented in this encounterMarymount Hospital02-[facility]-2024 History of Present illness Narrative* Nae Rojas [...] Medical History: Diagnosis Date Arthritis Cataract Diabetes ([facility]) Diabetes mellitus type 2, controlled ([facility]) Fractures Past Surgical History [...] hyperglycemia, with long-term current use of insulin ([facility]) Cerebrovascular accident (CVA) due to thrombosis ([facility]) Mixed hyperlipidemia Sequelae, post-stroke [...] me in 3 months. 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 Sincerely, Your Patient Services Outbound Team [facility] [employer] SystemEvaluation + Plan note Future Appointments Appointment Date:01/21/2025 03:00:00 PM Scheduled Provider:NKANSJAROCHO VILLELA MD Location:[facility] Appointment Type:URO Office Visit [facility] Mcdavid Evaluation + Plan note Future Appointments Appointment Date:10/07/2025 03:00:00 PM Scheduled Provider:JAROCHO POST MD Location:[facility] Appointment Type:URO Office Visit [facility] Eileen Evaluation note* Diagnosis Onset Date Resolution Status Cerebral atherosclerosis acu te Cigarette nicotine dependence without complication acute Hypercholesterolemia acute Primary hypertension acute Type 2 diabetes mellitus with hyperglycemia acute [facility] Work Phone: evaluation note* Diagnosis Onset Date Resolution Status Cerebral atherosclerosis acu te Cigarette nicotine dependence without complication acute Hypercholesterolemia acute Primary hypertension acute Primary osteoarthritis of right knee acute Type 2 diabetes mellitus with hyperglycemia acute Cerebral atherosclerosis acu te Cigarette nicotine dependence without complication acute Hypercholesterolemia acute Primary hypertension acute Type 2 diabetes mellitus with hyperglycemia acute [facility] Work Phone: Evaluation note* Diagnosis Onset [...] Type 2 diabetes mellitus with hyperglycemia acute [facility] Work Phone: Evaluation note* Diagnosis Hematuria- Primary Hematuria, unspecified Hematuria Hematuria, unspecified Chronic indwelling Cyr catheter Tobacco use Hyponatremia Hyposmolality and/or hyponatremia Chronic indwelling Cyr catheter Constipation Unspecified constipation documented in this encounter [facility] Work Phone: Evaluation note* Diagnosis Gallbladder polyp Cholesterolosis of gallbladder documented in this encounter [facility] Work Phone: Evaluation note* Diagnosis Constipation, unspecified constipation type- Primary Gallbladder polyp Cholesterolosis of gallbladder Cerebrovascular accident (CVA), unspecified mechanism (Multi) documented in this encounter [facility] Work Phone: Evaluation note* Diagnosis Cerebrovascular accident (CVA) due to thrombosis of precerebral artery ([facility])- Primary Other cerebrovascular vasospasm and vasoconstriction [facility] Diagnosis Sequelae, post-stroke- Primary Cerebrovascular accident (CVA) due to thrombosis of precerebral artery ([facility]) Type 2 diabetes mellitus with hyperglycemia, with long-term current use of insulin ([facility]) Transient alteration of awareness Mixed hyperlipidemia Blurred vision Other specified visual disturbances Gait instability Abnormality of gait [facility]* Diagnosis Arthritis of right knee- Primary Right knee pain, unspecified chronicity Right knee pain, unspecified chronicity [facility]* Diagnosis Arthritis of right knee [facility]* Diagnosis Right knee pain, unspecified chronicity Arthritis of right knee [facility]* Diagnosis Cerebrovascular accident (CVA) due to occlusion of right middle cerebral artery ([facility])- Primary Stroke-like symptoms DAISY (acute kidney injury) ([facility]) Anemia, unspecified type Elevated troponin Other abnormal blood chemistry Stroke-like symptoms Type 2 diabetes mellitus with hyperglycemia, with long-term current use of insulin ([facility]) Mixed hyperlipidemia Gait instability Abnormality of gait Acute renal failure with acute renal cortical necrosis superimposed on stage 3a chronic kidney disease ([facility]) documented [facility] encounter [facility] noteNo assessment information available [facility] Work Phone: History general Narrative - Reported* Type Description Date Medical History Cerebral atherosclerosis Medical History Hypercholesterolemia Medical History Primary hypertension Medical History Cigarette nicotine dependence wi thout complication Surgical History Tonsillectomy Surgical History Right Shoulder Surgery Surgical History Left TKA 2009 Surgical History Right Knee Arthroscopy x2 Surgical History 2: cataracts Surgical History ORIF Right Wrist Hospitalization History see surgical history [employer] Other Hospital course Narrative No data available for this section [facility] Discharge instructionsNot on filedocumented in this [...] available for this section [facility] Resadt for referral (narrative)No reason for referral information availableBucyrus Community Hospital Work Phone: Reason for visit NarrativeDiabetic education/XR resultsNohawthorn [facility]'s psychiatric [facility] [employer] Other Reason for visit Narrative* Auth/Cert Specialty Diagnoses / Procedures Referred By Contchu t Referred To Contact Diagnoses Hematuria hematuria Gricelda Perea MD [address] [facility] [address] [place] [address] Phone: tel: fax: [place] [address] [place] [phone] Phone: tel: Referral ID Status Reason Start Date Expiration Date Visits Re quested Visits Authorized [id number] 1 1 [facility] Work Phone: Summary Purpose Family History Relationship Condition Age at Onset Recorded Date/T dinorah Not Specified Malignant neoplasm Unknown History of stroke Unknown Relationship Condition Age at Onset Recorded Date/T dinorah mother Malignant neoplasm Unknown History of stroke Unknown sister Diabetes mellitus Unknown Malignant neoplasm Unknown Advance Directives Advance Directive Response Recorded Date/ Time Advance [...] Documents on File Type Date Recorded 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 05/21/2024 4:26 PM Date Activated Date Inactivated [...] mellitus with hyperglycemia Chief Complaint Admit Date Fpc Visit August 19, 2024 1 1:59pm urogenital bleeding October 06, 2024 8:35pm urogenital bleeding October 08, 2024 1:23pm urogenital bleeding October 09, 2024 9:59am Fpc Visit October 19, 2024 11:59pm Unknown October [...] Left renal mass October 06, 2024 8:35pm Chief Complaint Admit Date Fpc Visit April 14, 2025 11:5 9pm Amb Documentation May 02, 2025 11:29 am Fpc Visit May 19, 2025 11:5 9pm Fpc Visit June 23, 2025 11 :59pm *AMBROCIO [place]* [facility]: Seizures June 282024 1:32pm Reason for Referral Specialty Diagnoses / Procedures Referred By Contac t Referred To Contact Rehabilitation Diagnoses Arthritis of right knee Klaus Yeboah MD [address] [place] [address] Referral ID Status Reason Start Date Expiration Date Visits Requested Visits Authorized [id number] Pending Review Specialty Services Required 12/30/2023 12/29/2024 1 1 Specialty Diagnoses / Procedures Referred By Contac t Referred To Contact Diagnoses Right knee pain, unspecified chronicity Arthritis of right knee Procedures Large Joint Injection/Arthrocentesis - PA Klaus Yeboah MD [address] [place] [address] [facility] [address] [place] [address] Referral ID Status Reason Start Date Expiration Date V isits Requested Visits Authorized [id number] Pending Review 12/30/2023 12/29/2024 1 1 Specialty Diagnoses / Procedures Referred By Contac t Referred To Contact Rehabilitation Diagnoses Cerebrovascular accident (CVA) due to thrombosis of precerebral artery (CMS-HCC) Sequelae, post-stroke Gait instability Nae Rojas MD [address] [place] [address], [address] [place] [address] Referral ID Status Reason Start Date Expiration Date Visits Requested Visits Authorized [id number] Pending Review Specialty Services Required 12/11/2023 12/10/2024 1 1 Specialty Diagnoses / Procedures Referred By Contac t Referred To Contact Diagnoses Cerebrovascular accident (CVA) due to thrombosis of precerebral artery (CMS-HCC) Other cerebrovascular vasospasm and vasoconstriction Procedures Event Monitor (In Office) Kong Gallegos APRN-CNP [address] [place] [address] [address] [place] [address] Referral ID Status Reason Start Date Expiration Date V isits Requested Visits Authorized [id number] Pending Review 10/31/2023 10/30/2024 1 1 Additional [...] and content) DATE CREATED AUTHOR 05/16/2022 [facility] DATE CREATED AUTHOR AUTHOR'S ORGANIZ ATION 02/05/2024 [facility] EPIC DATE CREATED AUTHOR AUTHOR'S ORGANIZ ATION 06/02/2024 [facility] DATE CREATED AUTHOR AUTHOR'S ORGANIZ ATION 06/12/2024 [facility] DATE CREATED AUTHOR AUTHOR'S ORGANIZ ATION 06/16/2024 [facility] DATE CREATED AUTHOR AUTHOR'S ORGANIZ ATION 10/05/2024 [facility] DATE CREATED AUTHOR AUTHOR'S ORGANIZ ATION 11/11/2024 [facility] DATE CREATED AUTHOR AUTHOR'S ORGANIZ ATION 11/17/2024 [facility] DATE CREATED AUTHOR AUTHOR'S ORGANIZ ATION 12/29/2024 [facility] DATE CREATED AUTHOR AUTHOR'S ORGANIZ ATION 01/22/2025 [facility] DATE CREATED AUTHOR AUTHOR'S ORGANIZ ATION 04/20/2025 [facility] DATE CREATED AUTHOR AUTHOR'S ORGANIZ ATION 04/24/2025 [facility] DATE CREATED AUTHOR AUTHOR'S ORGANIZ ATION 04/25/2025 [facility] DATE CREATED AUTHOR AUTHOR'S ORGANIZ ATION 04/26/2025 [facility] DATE CREATED AUTHOR AUTHOR'S ORGANIZ ATION 04/27/2025 [facility] DATE CREATED AUTHOR AUTHOR'S ORGANIZ ATION 04/28/2025 [facility] DATE CREATED AUTHOR AUTHOR'S ORGANIZ ATION 04/29/2025 [facility] DATE CREATED AUTHOR AUTHOR'S ORGANIZ ATION 04/30/2025 [facility] DATE CREATED AUTHOR AUTHOR'S ORGANIZ ATION 05/01/2025 [facility] DATE CREATED AUTHOR AUTHOR'S ORGANIZ ATION 05/05/2025 [facility] DATE CREATED AUTHOR AUTHOR'S ORGANIZ ATION 05/12/2025 [facility] REASON FOR VISIT (unrecogniz ed section and content) Reason Comments New Patient Visit Gallbladder nodules Specialty Diagnoses / Procedures Referred By Shanice t Referred To Contact Diagnoses Gallbladder polyp Sarah Villareal MD [address] [place] [address] Phone: tel: fax: Suellen Cooper MD PhD [address] [place] [id number] Phone: tel: fax: Referral ID Status Reason Start Date Expiration Date Visits Requested Visits Authorized [id number] Authorized Specialty Services Required 11/02/2024 11/02/2025 1 [...] Injection/Arthrocentesis - Klaus Lou MD [address] [place] [address] [facility] [place] [id number] [place] [address] Referral ID Status Reason Start Date Expiration Date Visits Re quested Visits Authorized [id number] Closed 12/30/2023 12/29/2024 1 1 Reason Comments Stroke Alert Specialty Diagnoses / Procedures Referred By Contac t Referred To Contact Diagnoses Elevated troponin DAISY (acute kidney injury) ([facility] Stroke-like symptoms Anemia, unspecified type Emilia Hidalgo MD [address] , [facility] [address] [place] [address] Referral ID Status Reason Start Date Expiration Date Visits Re quested Visits Authorized [id number] 1 1 Reason Onset Date Comments Blood in Urine 10/01/2024 Reason Onset Date Comments Urinary Retention 10/01/2024 Blood in Urine 10/01/2024 Reason Comments Radiology MRI Care Teams (unrecognized sec tion and content) Team Status: Active Member Role Status Dates Eleazar Mayorga DO Primary Care Provider Active Team Status: Active Member Role Status Dates Eleazar Mayorga DO Primary Care Provider Active Start: April 14, 2025 Eleazar Mayorga DO Attending Provider Active Sta rt: April 14, 2025 Team Status: Active Member Role Status Dates Eleazar Mayorga DO Primary Care Provider Active Start: May 02, 2025 Brenda Mehta CMA Attending Provider Active Start: May 02, 2025 Team Status: Active Member Role Status Dates Eleazar Mayorga DO Primary Care Provider Active Start: May 19, 2025 Eleazar Mayorga DO Attending Provider Active Sta rt: May 19, 2025 Team Status: Active Member Role Status Dates Eleazar Mayorga DO Primary Care Provider Active Start: May 30, 2025 Outside Provider Attending Provider Active Start : May 30, 2025 Team Status: Active Member Role Status Dates Eleazar Mayorga DO Primary Care Provider Active Start: June 12, 2025 Cyndy Blair DO Attending Provider Active Start: June 12, 2025 Team Status: Active Member Role Status Dates Eleazar Mayorga DO Primary Care Provider Active Start: June 23, 2025 Eleazar Mayorga DO Attending Provider Active Sta rt: June 23, 2025 Team Status: Inactive Member Role Status Dates Eleazar Mayorga DO Primary Care Provider Active Start: June 28, 2025 End: June 28, 2025 Shanice Adames APRN Attending Provider Active Start: June 28, 2025 End: June 28, 2025 Team Status: Active Member Role Status Dates [...] March 31, 2024 End: March 31, 2024 Corporate Pilot Relationship Specialty [place] [address] [place] [phone] PCP - General Internal Medicine 02/04/24 Corporate Pilot Relationship Specialty Start [place] [address] [place] [phone] PCP - General Internal Medicine 02/04/24 Team Status: Active Member Role Status Dates Eleazar Mayorga DO Primary Care Provide r, Attending Provider Active Start: August 19, 2024 Team Status: Active Member Role Status Dates Eleazar Mayorga DO Primary Care Provider Active Start: September 29, 2024 Cyndy Blair DO Attending Provider Active Start: September 29, [...] Mcdonald MD Other Provider Active Start: 2023 End: October 12, 2024 Alma Glass NP-C Other Provider Active Start: October 06, 2024 End: October 12, 2024 Nadia Youngblood MD Other Provider Active Start: 2023 End: October 12, 2024 Sharmaine Jimenez MD Other Provider Active Start: [email or web address] End: October 12, 2024 Dionte Rizvi MD Other Provider Active Start: October 06, 2024 End: October 12, 2024 Addy Portillo MD Other Provider Active Start: October 06, 2024 End: October 12, 2024 Ester Carlos MD Other Provider Active Start: [email or web address] 2023 End: October 12, 2024 Luis Cherry MD Other Provider Active Start: October 06, 2024 End: October 12, 2024 Dionte Pereira MD Other Provider Active Start : October 06, 2024 End: October 12, 2024 Kong Davidson MD Other Provider Active S tart: October 06, 2024 End: October 12, 2024 Jarocho Post MD Other Provider Active Start: October 06, 2024 End: October 12, 2024 GRANT Padilla Other Provider Active Star t: October 06, 2024 End: October 12, 2024 Donna Griffin MANAGER [employer] Other Provider Active Sta rt: October 06, 2024 End: October 12, 2024 Gerard Platt II, DO Other Provider Active Start: October 06, [...] 2024 End: October 12, 2024 Shanice Adames , NANCY Other Provider Active St art: October 06, 2024 End: October 12, 2024 Crystal Bradford NP-C Other Provider Active Sta rt: October 06, 2024 End: October 12, 2024 Alexandra Loya EP SPECIALIST-MANAGER [employer]CHANGE-C Other Provider Active Start: October 06, 2024 [...] Mauro Mcdonald MD Other Provider Active Start: [email or web address] Alma Glass NP-C Other Provider Active Start: October 08, 2024 Nadia Youngblood MD Other Provider Active Start: 2023 Sharmaine Jimenez MD Attending Provider, Other Provider Active Start: October 08, 2024 Dionte Rizvi MD Other Provider Active Start: October 08, 2024 Addy Portillo MD Other Provider Active Start: October 08, 2024 Ester Carlos MD Other Provider Active Start: [id number] Luis Cheryr MD Other Provider Active Start: October 08, 2024 Dionte Pereira MD Other Provider Active Start : October 08, 2024 Kong Davidson MD Other Provider Active S tart: October 08, 2024 Jarocho Post MD Other Provider Active Start: October 08, 2024 BENNETT PadillaC Other Provider Active Star t: October 08, 2024 Donna Griffin MANAGER [employer] Other Provider Active Sta rt: October 08, 2024 Gerard Platt II, Other Provider Active Start: October 08, 2024 [...] Glass NP-C Other Provider Active Start: October 09, 2024 Nadia Youngblood MD Other Provider Active Start: 2023 Sharmaine Jimenez MD Other Provider Active Start: [email or web address] Dionte Rizvi MD Other Provider Active Start: [...] Other Provider Active Start: October 09, 2024 BENNETT PadillaC Other Provider Active Star t: October 09, 2024 FELICITA AlonsoP-JACKY Other Provider Active Sta rt: October 09, [...] October 28, 2024 End: October 28, 2024 Corporate Pilot Relationship Specialty Start Date End Date Eleazar Mayorga DO [address] [place] [address] PCP - General Internal Medicine 10/26/23 Corporate Pilot Relationship Specialty Start Date End Date Eleazar Mayorga DO [address] [place] [address] PCP - General Internal Medicine 10/26/23 Corporate Pilot Relationship Specialty Start Date End Date Eleazar Mayorga DO [address] [place] [address] PCP - General Internal Medicine 10/26/23 Corporate Pilot Relationship Specialty Start Date End Date Eleazar Mayorga DO [address] [place] [address] PCP - General Internal Medicine 10/26/23 Corporate Pilot Relationship Specialty Start Date End Date Eleazar Mayorga DO [address] [place] [address] PCP - General Internal Medicine 10/26/23 Corporate Pilot Relationship Specialty Start Date End Date Eleazar Mayorga DO [address] [place] [address] PCP - General Internal Medicine 10/26/23 Corporate Pilot Relationship Specialty Start Date End Date Eleazar Mayorga DO [address] [place] [address] PCP - General Internal Medicine 04/09/24 Corporate Pilot Relationship Specialty Start Date End Date Eleazar Mayorga [address] [place] [address] PCP - General Internal Medicine 05/27/24 Corporate Pilot Relationship Specialty Start Date End Date Eleazar Mayorga [address] [place] [address] PCP - General Internal Medicine 05/27/24 Corporate Pilot Relationship Specialty Start Date End Date Eleazar Mayorga [address] [place] [address] PCP - General Internal Medicine 05/27/24 Team Status: Active Member Role Status Dates Eleazar Mayorga DO Primary Care Provider Active Start: April 14, 2025 Eleazar Mayorga DO Attending Provider Active Sta rt: April 14, 2025 Team Status: Active Member Role Status Dates Eleazar Mayorga DO Primary Care Provider Active Start: May 02, 2025 Brenda Mehta CMA Attending Provider Active Start: May 02, 2025 Team Status: Active Member Role Status Tarah Mayorga DO Primary Care Provider Active Start: May 19, 2025 Eleazar Mayorga DO Attending Provider Active Sta rt: May 19, 2025 Team Status: Active Member Role Status Dates Eleazar Mayorga DO Primary Care Provider Active Start: May 30, 2025 Outside Provider Attending Provider Active Start : May 30, 2025 Team Status: Active Member Role Status Dates Eleazar Mayorga DO Primary Care Provider Active Start: June 12, 2025 Cyndy Blair DO Attending Provider Active Start: June 12, 2025 Team Status: Active Member Role Status Dates Eleazar Mayorga DO Primary Care Provider Active Start: June 23, 2025 Eleazar Mayorga DO Attending Provider Active Sta rt: June 23, 2025 Team Status: Inactive Member Role Status Dates Eleazar Mayorga DO Primary Care Provider Active Start: June 28, 2025 End: June 28, 2025 Shanice Adames APRN Attending Provider Active Start: June 28, 2025 End: June 28, 2025 Goals (unrecognized section and content) Goals may [...] Provider: Lilliana Porter RN)1603 (Given - Provider: Lliliana Porter RN)2211 (Given - Provider: Richelle Mehta [...] (Medication Removed - Provider: Tori Norwood RN) 09 (Medication Removed - Provider: Lilliana Porter RN)0939 [...] preference? Yes 0937 (Given - Provider: Vivi Porter RN)1602 (Given - Provider: Lilliana Porter RN) dextrose 50 % injection 12.5 g 12.5 [...] chew. 27 (Given - Provid er: Tomeka Levi RN) atorvastatin (LIPITOR) tablet 40 mg 40 [...] use. 0933 (Given - Provid er: Tomeka Levi RN) enoxaparin (LOVENOX) syringe 40 mg 40 mg, [...] at room temperature. 2100 (Given - Provider: Ivy Clark, SMOOTH) 0926 (Given - Provider: Tomeka Levi RN)2100 [...] Loren Middleton RN)1132 (Paused - Provider: Loren Chambers RN)1136 (Restarted - Provider: Loren Chambers RN)1137 (Paused - Provider: Loren Chambers RN)1147 (Restarted - Provider: Loren Chambers RN) sodium chloride 0.9 % bolus (COMPLETED) 500 mL, intravenous, at 500 mL/hr, Administer over 1 Hours, Once, On Fri04/10/24 at 1215, For 1 dose 1244 (New Bag - Provider: Tomeka Levi, SMOOTH)1328 (Stop Bag - Provider: Tomeka Levi RN)1344 (Stop Bag - Provider: Tomeka Levi RN) sodium chloride 0.9 % bolus 500 mL, intravenous, at 968 mL/hr, Administer over 31 Minutes, Once, On 04/10/24 at 1645, For 1 dose 1645 (Due) Continuous Medication Order 04/08/2024 04/09/2024 04/10/2024 sodium chloride 0.9 % infusion 75 mL/hr, intravenous, Continuous, Starting on Fri04/09/24 at 0805 1640 (New Bag - Provider: Loren Chambers RN)1653 (Paused - Provider: Loren Chambers RN)1656 (Restarted - Provider: Loren Chambers RN)1657 (Stop Bag - Provider: Loren Chambers RN)1702 (Stop Bag - Provider: Loren Chambers RN) 1245 (Restarted - Provider: Tomeka Levi RN)1328 (Paused - Provider: Tomeka Levi RN)1411 (Restarted - Provider: Tomeka Levi RN)1603 (Stop Bag - Provider: Tomeka Levi RN) PRN Medication Order 04/08/2024 04/09/2024 04/10/2024 acetaminophen (TYLENOL) tablet 650 mg 650 mg, oral, Every 4 hours PRN, mild pain - pain scale 1-3, headaches, Temperature greater than 38.3 C, Starting on Fri04/09/24 at 1348, [Warning: Total Acetaminophen not to exceed more than 4 grams (4000 mg) in 24 hours] 2050 (Given - Provider: Nery Hoff RN) 1249 (Given - Provider: Tomeka Levi RN) alum-mag hydroxide-simeth (MAALOX) 200-200-20 mg/5 mL suspension 30 mL 30 mL, oral, 4 times daily after meals and at bedtime as needed, dyspepsia, Starting on Fri04/09/24 at 1348, Look-alike/sound-alike medication - verify indication for use. Shake well., Indications: dyspepsia 2050 (Given - Provider: Nery [...] - Provider: Saul Porter - Comment: lot [id number], exp 01/27/27) iohexoL (OMNIPAQUE) 350 mg iodine/mL injection 100 mL (COMPLETED) 100 mL, intravenous, Once in imaging, contrast, Starting on 04/10/24 at 1333, For 1 dose, VESICANT (RED) 1415 (Given - Provid er: KRISHAN Posey - Comment: [id number]) magnesium sulfate IVPB 2000 mg/50 mL in [...] minutes. 1936 (Given - Provider: Ivy Clark, SMOOTH) 1323 (Given - Provider: Fouzia Bautista RN) potassium chloride (K-TAB,KLOR-CON) CR tablet 30-50 mEq(Linked [...] intravenous, As needed, line care, Starting on 04/10/24 at 1333 1352 (Given - Provid er: [...] Once in imaging, pre/post contrast, Starting on 04/10/24 at 1333, For 1 dose 1414 (Given [...] or prosecute any alcohol or drug abuse patient.[facility] FOR RECORDS PERTAINING TO PATIENTS WHO [...] BE BASED ON THE PRIMARY CLINICAL RECORDS. [facility]. provides no warranty or guarantee of the accuracy or completeness of information in this document.
--- OUTSIDE RECORDS SUMMARY | 2025-07-10 18:54 | XMS_ITS | Clinical Summary ---
Author Organization [facility] Address [address] [place], [place] [id number] Care Team Providers Care Special Procedure Tech Name Role Phone Unavailable Primary Care Provider Unavailabl e Allergies No known active allergies Social History Tobacco Use Types Packs/Day Years Used Date Smoking Tobacco: Never Assessed Sex and Gender Information Value Date Recorded Sex Assigned at Not on file Legal Sex Male 9:28 AM EST Gender Identity Not on file Sexual Orientation Not on file Last Filed Vital Signs Vital Sign Reading Time Taken Comments Blood Pressure - - Pulse - - Temperature - - Respiratory Rate - - Oxygen Saturation - - Inhaled Oxygen Concentration - - Weight 86.2 kg (190 lb) 12/28/2024 8:28 AM EST Height 177.8 cm (5' 10 ) 12/28/2024 8:28 AM EST Body Mass Index 27.26 12/28/2024 8:28 AM EST Plan of Treatment Health Maintenance Due Date Last Done Comments Anxiety Screening 1971 Depression Screening 1971 Hepatitis C Screening 1971 DTaP,Tdap,Td Vaccine (1 - Tdap) 1972 CT Colonography 1998 Cologuard (FIT-DNA) 1998 Colonoscopy 1998 Colorectal Cancer Screening 1998 Fecal Occult Blood 1998 Sigmoidoscopy 1998 Pneumococcal Vaccine: 50+ (1 of 1 - PCV) 2003 Shingrix Vaccine (1 of 2) 2003 Advance Directive Discussion 10/27/2024 Influenza Vaccine (#1) 2025 07/08/2018 Diabetes Screening 10/05/2027 10/05/2024, 1 12/06/2023, 10/04/2024, Additional history exists RSV Vaccine (1 - 1-dose 75+ series) 2028 Lipid Screening 04/09/2029 04/09/2024, 10/28/2023 Insurance [facility] MEDICARE ADVANTAGE PPO [place]ICAID [place]
--- OUTSIDE RECORDS SUMMARY | 2025-07-10 18:55 | XMS_ITS | Clinical Summary ---
Author Organization [facility] Address [address] [place] [address] Phone Care Team Providers Care [employer] Setter Name Role Phone Unavailable Primary Care Provider Unavailabl e Allergies No known active allergies Medications insulin lispro 100 unit/mL injection Inject under the skin 3 times daily (morning, midday, late afternoon). per sliding scale: <150 = 0 units 151-200 = 2 units 201-250 = 4 units 251-300 = 6 units 301-350 = 8 units 351-400 = 10 units >400 = call MD Active aspirin 81 mg EC tablet Take 1 tablet (81 mg) by mouth once daily. Active atorvastatin (Lipitor) 40 mg tablet Take 1 tablet (40 mg) by mouth once daily at bedtime. Active ticagrelor (Brilinta) 90 mg tablet Take 1 tablet (90 mg) by mouth 2 times a day. Active gabapentin (Neurontin) 100 mg capsule Take 1 capsule (100 mg) by mouth 3 times a day. Active insulin glargine (Lantus U-100 Insulin) 100 unit/mL injection Inject 15 Units under the skin once daily at bedtime. Active magnesium hydroxide (Milk of Magnesia) 400 mg/5 mL suspension Take 5 mL by mouth once daily as needed for constipation. Active magnesium oxide (Mag-Ox) 400 mg tablet Take 1 tablet (400 mg) by mouth once daily. Active melatonin (Melatin) 3 mg tablet Take 2 tablets (6 mg) by mouth once daily at bedtime. Active metoprolol succinate XL (Toprol-XL) 50 mg 24 hr tablet Take 1 tablet (50 mg) by mouth once daily. Active pantoprazole (ProtoNix) 40 mg EC tablet Take 1 tablet (40 mg) by mouth once daily in the morning. Take before meals. Active polyethylene glycol (Glycolax, Miralax) 17 gram packet Take 17 g by mouth once daily. Active sennosides (Senokot) 8.6 mg tablet Take 2 tablets (17.2 mg) by mouth once daily. Active sennosides-docus ate sodium (Marilin-Colace) 8.6-50 mg tablet Take 1 tablet by mouth once daily at bedtime. Active tamsulosin (Flomax) 0.4 mg 24 hr capsule Take 1 capsule (0.4 mg) by mouth once daily at bedtime. Active traZODone (Desyrel) 50 mg tablet Take 0.5 tablets (25 mg) by mouth once daily at bedtime. Active nicotine (Nicoderm CQ) 21 mg/24 hr patchIndications :Tobacco use Place 1 patch over 24 hours on the skin once daily for 38 doses. 4 Active Additional Information Patient not taking.Reported on 11/02/2024 nicotine (Nicoderm CQ) 14 mg/24 hr patchIndications :Tobacco use Place 1 patch over 24 hours on the skin once daily for 14 doses. Do not fill before November 13, 2024. 5 Active Additional Information Patient not taking.Reported on 11/02/2024 nicotine (Nicoderm CQ) 7 mg/24 hr patchIndications :Tobacco use Place 1 patch over 24 hours on the skin once daily for 14 doses. Do not fill before November 27, 2024. 5 Active Additional Information Patient not taking.Reported on 11/02/2024 linaCLOtide (Linzess) 145 mcg capsuleIndicatio ns:Constipation, unspecified constipation type Take 1 capsule (145 mcg) by mouth once daily in the morning. Take before meals. Do not crush or chew. 30 capsule 11 11/28/2024 4:47 PM EST 5 11/02/19 26 Active Active Problems Problem Noted Date Diagnosed Date Hematuria 10/02/2024 Hyponatremia 10/02/2024 Chronic indwelling Cyr catheter 10/02/2024 Constipation 10/02/2024 Encounters Date Type Department Care Team Description 04/24/2025 Orders Only [facility] [address] [place] [place] [address] Mikey Mehta DO from Last 3 Months Family History Medical History Relation Name Comments Brain cancer Father Stroke Maternal Grandmother Cancer Mother Cancer Sister Relation Name Status Comments Father Maternal Grandmother Mother Sister Social History Tobacco Use Types Packs/Day Years Used Date Smoking Tobacco: Every Day Cigarettes 0.5 66.7 Started: 1960 Passive Smoke Exposure: Past Smokeless Tobacco: Never Tobacco Cessation:Ready to Q uit: No; Counseling Given: No Alcohol Use Standard Drinks/Week Comments Not Currently 0 (1 standard drink = 0.6 oz pur e alcohol) [facility] Utilities Answer Date Recorded In the past 12 months has e [employer], gas, oil, or water [employer] threatened to shut off services in your home? Patient declined 10/02/2024 Humiliation, Afraid, Rape, and Kick questionnair e Answer Date Recorded Within the last year, have y ou been afraid of your partner or ex-partner? No 10/02/2024 Within the last year, have y ou been humiliated or emotionally abused in other ways by your partner or ex-partner? No Within the last year, have y ou been kicked, hit, slapped, or otherwise physically hurt by your partner or ex-partner? No 10/02/2024 Within the last year, have y ou been raped or forced to have any kind of sexual activity by your partner or ex-partner? No 10/02/2024 Social Connection and Isolation Panel Answer Date Recorded In a typical week, how many times do you talk on the phone with family, friends, or neighbors? Patient declined 10/02/2024 How often do you get togethe r with friends or relatives? Patient declined 10/02/2024 How often do you attend gnosticist or baptist serv ices? Patient declined 10/02/2024 Do you belong to any clubs o r organizations such as gnosticist groups, unions, fraternal or athletic groups, or school groups? Patient declined 10/02/2024 Attends Club or Organization Meetings Not on melissa e 10/02/2024 Marital Status Not on file 10/02/2024 AUDIT-C Answer Date Recorded Q1: How often do you have a drink containing alcohol? Never 10/02/2024 Q2: How many drinks containi ng alcohol do you have on a typical day when you are drinking? Patient does not drink Q3: How often do you have si x or more drinks on one occasion? Never 10/02/2024 Overall Financial Resource Strain (CARDIA) Answe r Date Recorded How hard is it for you to pa y for the very basics like food, housing, medical care, and heating? Not hard at all 10/05/2024 PHQ-2 Answer Date Recorded Patient Health Questionnaire-2 Score 0 10/02/2024 [facility] - Occupational Stress Questionnaire Answer Date Recorded Do you feel stress - tense, restless, nervous, or anxious, or unable to sleep at night because your mind is troubled all the time - these days? Patient declined 10/02/2024 Exercise Vital Sign Answer Date Recorde d On average, how many days pe r week do you engage in moderate to strenuous exercise (like a brisk walk)? Patient declined Minutes of Exercise per Session Not on file 10/02/2024 Hunger Vital Sign Answer Date Recorded Within the past 12 months, y ou worried that your food would run out before you got the money to buy more. Patient declined Within the past 12 months, t he food you bought just didn't last and you didn't have money to get more. Patient declined 04/2024 PRAPARE - Transportation Answer Date Re corded In the past 12 months, has l ack of transportation kept you from medical appointments or from getting medications? No 09/26 In the past 12 months, has l ack of transportation kept you from meetings, work, or from getting things needed for daily living? No 10/05/2024 Housing Stability Vital Sign Answer Isacc e Recorded In the last 12 months, was t here a time when you were not able to pay the mortgage or rent on time? No 10/05/2024 In the past 12 months, how m any times have you moved where you were living? 0 10/05/2024 At any time in the past 12 m [facility], were you homeless or living in a usp (including now)? No 10/05/2024 Sex and Gender Information Value Date Recorded Sex Assigned at Not on file Legal Sex Male 7:05 AM EST Gender Identity Not on file Sexual Orientation Not on file Last Filed Vital Signs Vital Sign Reading Time Taken Comments Blood Pressure 88/52 11/02/2024 9:30 AM EST Pulse 61 11/02/2024 9:30 AM EST Temperature 37 C (98.6 F) 10/06/2024 12:00 AM EST Respiratory Rate 18 10/06/2024 12:00 AM EST Oxygen Saturation 94% 10/06/2024 12:00 AM EST Inhaled Oxygen Concentration - - Weight 82.8 kg (182 lb 8.7 oz) 10/05/2024 6:00 A M EST Height 177.8 cm (5' 10 ) 10/02/2024 5:24 AM EST Body Mass Index 26.19 10/02/2024 5:24 AM EST Plan of Treatment Health Maintenance Due Date Last Done Comments CT Colonography 1953 FIT-DNA (Cologuard) 1953 FIT 1953 Lipid Panel 1953 Medicare Annual Wellness Vis it (AWV) 1953 Sigmoidoscopy 1953 MMR Vaccines (1 of 1 - Stand hanna series) 1954 Hepatitis C Screening 1971 Pneumococcal Vaccine (1 of 2 - PCV) 1972 DTaP/Tdap/Td Vaccines (1 - Tdap) 1975 Lung Cancer Screening 2003 Zoster Vaccines (1 of 2) 2003 Abdominal Aortic Aneurysm (A AA) Screening 2018 COVID-19 Vaccine (1 - 2023-2 5 season) 2025 Influenza Vaccine (#1) 2025 07/08/2018 RSV High Risk: (Elderly (60+ ) or Population) (1 - 1-dose 75+ series) 2028 Colonoscopy 04/19/2034 04/19/2024 Colorectal Cancer Screening 04/19/2034 HIB Vaccines Aged Out No longer eligi ble based on patient's age to complete this topic HPV Vaccines Aged Out No longer eligi ble based on patient's age to complete this topic Hepatitis A Vaccines Aged Out No long er eligible based on patient's age to complete this topic Hepatitis B Vaccines Aged Out No long er eligible based on patient's age to complete this topic IPV Vaccines Aged Out No longer eligi ble based on patient's age to complete this topic Meningococcal Vaccine Aged Out No monet adi eligible based on patient's age to complete this topic Rotavirus Vaccines Aged Out No longer eligible based on patient's age to complete this topic Procedures Procedure Name Priority Date/Time Associated Diagnosis Comments [facility] HIE C BLOOD CHARCOAL Routine 04/24/2025 9:08 PM EDT NON[facility] H[facility] C URINE Routine 04/24/2025 9: 08 PM EDT [facility] UA WITH CULT RFLX Routine 04/24/2025 9:08 PM EDT [facility] H[facility] C BLOOD CHARCOAL Routine 04/24/2025 9:07 PM EDT [facility] H[facility] CBC W/ AUTO DIFF Routine 04/24/2025 9:07 PM EDT [facility] TROPONIN Routine 04/24/2025 9 :07 PM EDT [facility] EGFR Routine 04/24/2025 9:07 PM EDT [facility] CMP Routine 04/24/2025 9:07 PM EDT [facility] LACTIC ACID Routine 04/24/2025 9:07 PM EDT [facility] H[facility] PT & PTT Routine 04/24/2025 9 :07 PM EDT from Last 3 Months Results * (ABNORMAL) [facility] H[facility] UA WITH CULT RFLX (04/24/2025 9:08 PM EDT) [facility] UA Spec Desc Catheter [facility] HIE UA Color Light-Shannon (A) Yellow [facility] Comment:Microscopic readings are only performed on those samples that meet specific criteria set forth by [facility]. [facility] HIE UA Clarity Ex.Turbid(A) Clear [facility] HIE UA Spec Grav 1.014 1.005 - 1.030 [facility] H[facility] UA pH 7.5 5.0 - 9.0 [facility] NON-[facility] HIE UA Protein Trace(A) Negative mg/dL [facility] HIE UA Glucose Negative Negative mg/dL [facility] H[facility] UA Ketones Negative Negative mg/dL [facility] UA Bili Negative Negative mg/dL [facility] UA Blood 3+(A) Negative mg/dL [facility] UA Nitrite 1+(A) Negative mg/dL [facility] H[facility] UA Urobilinogen Negative Negative mg/dL [facility] UA Leuk Est 500 Shelli/uL(A) Negative CD:[id number] [facility] HIE UA WBC 31-75(A) 0 - 5 CD:[id number] 63 [facility] HIE UA RBC >75(A) 0 - 3 CD:[id number] 63 [facility] H[facility] UA Squam Epithelial 0-2 CD:[id number] 63 [facility] H[facility] UA Bacteria 1+(A) Trace /HPF [facility] H[facility] UA MUCOUS Trace Negative CD:[id number] 61 [facility] H[facility] UA WBC CLUMP 4-10(A) CD:[id number] 63 [facility] H[facility] UA Amorph Susannah Present(A) CD:[id number] 63 [facility] Lab- Urine 04/24/2025 9 :08 PM EDT us Mikey Mehta DO LAB BLOOD ORDERABLES Final Resu lt [facility] [address] [place] [address], [place] * [facility] HIE C Urine (04/24/2025 9:08 PM EDT) [facility] U Cath 04/24/2025 9:08 PM EDT us Mikey Mehta DO LAB BLOOD ORDERABLES Final Resu lt [facility] [address] [place] [address], * [facility] HIE C Blood Charcoal (04/24/2025 9:08 PM EDT) Only the most recent of2 resultswithin the time period is included. [facility] Lab- Blood 04/24/2025 9 :08 PM EDT Mikey Mehta DO LAB BLOOD ORDERABLES Final Resu lt [facility] [address] [place] [address], [place] * (ABNORMAL) [facility] CBC w/ Auto Diff (04/24/2025 9:07 PM EDT) [facility] H[facility] WBC 3.9(L) 4.0 - 11.0 E9/L [facility] HIE RBC 4.8 4.3 - 5.9 E12/L [facility] HIE HGB 11.8(L) 13.5 - 17.5 gm/dL [facility] HIE HCT 34.9(L) 37.7 - 49.0 % [facility] HIE RDW 20.4(H) 10.9 - 14.2 % [facility] HIE MCH 24.5(L) 27.0 - 34.0 pg [facility] HIE MCHC 33.8 31.4 - 36.0 gm/dL [facility] HIE MCV 72.4(L) 80.0 - 100.0 fL [facility] HIE MPV 6.7 6.4 - 10.8 fL [facility] HIE PLATELET 267.0 150.0 - 500.0 E9/L [facility] HIE NEUTRO AUTO 60.0 36.0 - 75.0 % [facility] HIE LYMPH AUTO 30.2 14.0 - 50.0 % [facility] HIE MONO AUTO 6.4 4.0 - 14.0 % [facility] H[facility] EOS AUTO 2.3 0.0 - 8.0 % [facility] HIE BASOPHIL AUTO 1.1 0.0 - 2.0 % [facility] HIE NEUTRO ABSOLUTE 2.3 2.0 - 7.5 E9/L [facility] H[facility] LYMPH ABSOLUTE 1.2 1.0 - 4.0 E9/L [facility] H[facility] MONO ABSOLUTE 0.2 0.2 - 1.0 E9/L [facility] H[facility] EOS ABSOLUTE 0.1 0.0 - 0.5 E9/L [facility] HIE BASOPHIL ABSOLUTE 0.0 0.0 - 0.2 E9/L [facility] HIE RBC MORPH SEE MORPHOLOGY [facility] NON-[facility] HIE POIKILOCYTOSIS PRESENT [facility] NON-[facility] HIE ANISOCYTOSIS PRESENT [facility] HIE MICROCYTE PRESENT [facility] Lab- Blood 04/24/2025 9 :07 PM EDT us Mikey Mehta DO LAB BLOOD ORDERABLES Final Resu lt [facility] [address] [place] [address], [place] * (ABNORMAL) [facility] HIE Troponin (04/24/2025 9:07 PM EDT) [facility] H[facility] TROPONIN 5.40(L) 15.90 - 38.40 pg/mL [facility] Comment:The 95% CI (Confiden ce Interval) PPV (Positive Predictive Value) for myocardial infarction in females is 38 pg/mL, in males 51 pg/mL. The results should be used in conjunction with clinical conditions of myocardial infarction.(Access High Sensitivity Troponin I Instructions For Use, Michael Marion, May 2018) [facility] Lab- Blood 04/24/2025 9 :07 PM EDT us Mikey Mehta DO LAB BLOOD ORDERABLES Final Resu lt [facility] [address] [place] [address], [place] * [facility] PT & PTT (04/24/2025 9:07 PM EDT) [facility] PT 12.2 9.4 - 12.5 second(s) [facility] Comment:15 days - 4 weeks 1 - 5 [...] the same coagulation reagent and instrumentation as [facility]. Currently there are no coagulation studies available worldwide for children to 14 days, and no normal ranges. [facility] HIE PTT 32.9 25.1 - 36.5 second(s) [facility] Comment:Parameter 15 days - 4 weeks 1 - 5 months 6 - 11 months 1 - 5 years 6 - 10 years 11 - 17 years PTT Mean: 35.4 (27.6-45.6) Mean: 33.5 (24.8-40.7) Mean: 32.4 (25.1-40.7) Mean: 31.6 (24.0-39.2) Mean: 31.6 (26.9-38.7) Mean: 31.0 (24.6-38.4) Pediatric Reference ranges were obtained from a study by pastora Mccartney. prepared from 1437 samples obtained at 7 different centers using the same coagulation reagent and instrumentation as [facility]. Currently there are no coagulation studies available worldwide for children to 14 days, and no normal ranges. Heparin therapeutic range (represented by Anti-Factor Xa activity of 0.2 - 0.4 U/mL) corresponds to PTT of 56.6 - 109.0 sec. [facility] H[facility] INR 1.09 [facility] Comment:INR results are spec ifically intended to assess patients stabilized on long-term Anticoagulation therapy suggested INRs Less Intensive Anticoagulation 2.0 3.0Conventional Range 3.0 4.5 [facility] Lab- Blood 04/24/2025 9 :07 PM EDT Mikey Mehta DO LAB BLOOD ORDERABLES Final Resu lt Performing Organization Address [facility] [place] [address], [place] * (ABNORMAL) [facility] Lactic Acid (04/24/2025 9:07 PM EDT) [facility] LACTIC ACID LVL 2.3(H) 0.5 - 2.2 mmol/L [facility] Lab- Blood 04/24/2025 9 :07 PM EDT Mikey Mehta DO LAB BLOOD ORDERABLES Final Resu lt Performing Organization Address [facility] Co de Phone Number [facility] [address] [place] [address], [place] * [facility] HIE eGFR (04/24/2025 9:07 PM EDT) [facility] HIE EGFR 103 >=59 mL/min/1.7 3 m2 [facility] Lab- Blood 04/24/2025 9 :07 PM EDT Mikey Mehta DO LAB BLOOD ORDERABLES Final Resu lt Performing Organization Address [facility] Co de Phone Number [facility] [address] [place] [address], [place] * (ABNORMAL) [facility] H[facility] CMP (04/24/2025 9:07 PM EDT) [facility] H[facility] GLUCOSE LVL 183 55 - 199 mg/dL [facility] HIE BUN 18 5 - 21 mg/dL [facility] HIE CREATININE 0.6 0.5 - 1.3 mg/dL [facility] HIE CALCIUM LVL 9.3 8.9 - 11.1 mg/dL [facility] HIE SODIUM LVL 133(L) 135 - 145 mmol/L [facility] H[facility] POTASSIUM LVL 3.9 3.5 - 5.3 mmol/L [facility] HIE CHLORIDE 96(L) 101 - 111 mmol/L [facility] HIE CO2 27 21 - 31 mmol/L [facility] H[facility] ALK PHOS 77 21 - 98 Int._Unit/ L [facility] H[facility] BILI TOTAL 0.5 0.0 - 1.1 mg/dL [facility] HIE ALBUMIN LVL 4.3 3.3 - 5.0 gm/dL [facility] H[facility] TOTAL PROTEIN 6.5 6.0 - 7.8 gm/dL [facility] H[facility] ALT 11 6 - 46 Int._Unit/ L [facility] H[facility] AST 9 5 - 43 Int._Unit/ L [facility] HIE BUN/CREAT RATIO 30(H) 10 - 20 No Units [facility] HIE AGAP 14 6 - 16 mEq/L [facility] HIE GLOBULIN 2.2 1.4 - 4.0 gm/dL [facility] HIE A/G RATIO 2.0 1.1 - 2.2 [facility] Lab- Blood 04/24/2025 9 :07 PM EDT us Mikey Mehta DO LAB BLOOD ORDERABLES Final Resu lt [facility] [address] [place] [address], [place] from Last 3 Months Insurance [employer] MEDICARE [employer] MEDICARE Advance Directives For more information, please contact: [phone] (Available ) * DNR and No Intubation (Latest Code Status on File) Date Activated Date Inactivated Comments 10/02/2024 6:07 AM Question Answer Comments Plan of Care: Code Status Discussion Completed Decision Maker: Patient
--- OUTSIDE RECORDS SUMMARY | 2025-07-10 18:55 | XMS_ITS | Patient Health Record ---
Author Organization [facility] Address [address] [place] [address] Support Name Relationship Address Phone VASHTI MASSEY Guarantor Unknown [phone] Reason For Referral No Information Problems Problem Type SNOMED Code ICD Code Onset Dates Problem Status W/U Status Risk Notes Problem [id number] Left leg cellulitis (L03.116) Active confirmed Problem 2711170 Fall, initial encounter (W19.XXXA) Active confirmed Problem [id number] Effusion, left knee (M25.462) Active confirmed Problem [id number] Primary osteoarthritis of left knee (M17.12) Active confirmed Plan Of Treatment No Information Insurance Providers Payer Name Payer Address Payer Phone Subscriber Number Group Number Insured Name Patient Relationship to Insured Coverage Start Date Coverage End Date Medicare [employer] [address] [place] [phone] [id number] VASHTI DEL VALLE Self - patient is the insured Self Pay VASHTI DEL VALLE Self - patient is the insured
--- OUTSIDE RECORDS SUMMARY | 2025-07-10 18:56 | XMS_ITS | Clinical Summary ---
Author Organization [facility] Address [address] [place] [address] Care Team Providers Care Senior Market Research Analyst Name Role Phone Vinnie Garza Primary Care Provider Allergies No known active allergies Medications meloxicam (Mobic) 15 MG tablet Take 15 mg by mouth in the morning. 4 Active atorvastatin (Lipitor) 40 MG tablet Take 40 mg by mouth Daily Active losartan (Cozaar) 25 MG tablet Daily 4 Active aspirin 81 MG EC tablet Daily 4 Active Lantus SoloStar 100 UNIT/ML pen ADMINISTER 15 UNITS UNDER THE SKIN AT BEDTIME Active NovoLOG FLEXPEN 100 UNIT/ML pen INJECT 15 UNITS UNDER THE SKIN THREE TIMES DAILY 4 Active Family History Medical History Relation Name Comments Stroke Father Cancer Mother Stroke Mother Relation Name Status Comments Father Mother Social History Tobacco Use Types Packs/Day Years Used Date Smoking Tobacco: Never Tobacco Cessation:Counseling Given: Not Answered Alcohol Use Standard Drinks/Week Comments Not Currently 0 (1 standard drink = 0.6 oz pur e alcohol) Sex and Gender Information Value Date Recorded Sex Assigned at Not on file Legal Sex Male 9:31 PM EDT Gender Identity Not on file Sexual Orientation Not on file Last Filed Vital Signs Vital Sign Reading Time Taken Comments Blood Pressure 139/79 03/02/2019 12:00 PM EDT Pulse - - Temperature - - Respiratory Rate - - Oxygen Saturation - - Inhaled Oxygen Concentration - - Weight 117 kg (257 lb) 02/04/2024 10:02 AM EDT Height 180.3 cm (5' 11 ) 02/04/2024 10:02 AM EDT Body Mass Index 35.84 02/04/2024 10:02 AM EDT Plan of Treatment Not on file Insurance MEDICAID [place] UNITED [employer] MEDICARE Care Teams Senior Market Research Analyst Relationship Specialty Start Date End Date Vinnie Garza DO [address] [place] [address] PCP - General Internal Medicine 02/17/25
--- OUTSIDE RECORDS SUMMARY | 2025-07-10 18:56 | XMS_ITS | Encounter Summary ---
Author Organization [facility] Address [address] [place] [address] Care Team Providers Care Rn Training Name Role Phone Vinnie Garza DO Primary Care Provider [phone] Vinnie Garza DO Primary Care Provider [phone] Encounter Details Date Type Department Care Team (Late st Contact Info) Description 05/19/2024 Abstract [facility] [address] [facility] [address] [place] [id number] Unallocated, [facility] Provider, [address] [place], [place] [id number] Social History Tobacco Use Types Packs/Day Years Used Date Smoking Tobacco: Never Alcohol Use Standard Drinks/Week Comments Not Currently 0 (1 standard drink = 0.6 oz pur e alcohol) Sex and Gender Information Value Date Recorded Sex Assigned at Not on file Legal Sex Male 9:31 PM EDT Gender Identity Not on file Sexual Orientation Not on file documented as of this encounter Plan of Treatment Not on file documented as of this encounter Visit Diagnoses Not on filedocumented in this encounter Care Teams Rn Training Relationship Specialty Start Date End Date Vinnie Garza DO PCP - General Internal Medicine 02/04/24 02/16/25 Vinnie Garza DO [address] [place] [id number] PCP - General Internal Medicine 02/17/25 documented as of this encounter
--- NOTE | 2025-07-10 19:00 | ECG_ITS ---
[facility] Test Date: 2025-07-10 Pat Name: VASHTI MASSEY Department: Room: - Gender: Male Dental Hygienist: : 1955 Requested By: [id number] Order Number: [id number] Reading MD: LULU VILLEGAS Measurements Intervals Calvin Rate: 56 P: 16 ND: 224 QRS: -25 QRSD: 100 T: 27 QT: 426 QTc: 418 Interpretive Statements Sinus bradycardia 2231 First degree AV block 3114 Cannot rule out anterior myocardial infarction, age undetermined 5222 Moderate voltage criteria for LVH, may be normal variant 8102 Low QRS voltage in chest leads 0102 ARTIFACT PRESENT 9150 abnormal ECG Compared to ECG 06/12/2025 22:18:31 First degree AV block now present Myocardial infarct finding now present Left ventricular hypertrophy now present Low QRS voltage now present Electronically Signed On 07-11-2025 16:49:13 EDT by LULU VILLEGAS
--- NOTE | 2025-07-10 19:26 | ED.GENADUL1 ---
HPI HPI - General Adult General Chief complaint: Psychiatric Symptoms Stated complaint: SUICIDAL Time Seen by Provider: 07/10/25 19:21 Source: patient and medical record Mode of arrival: ambulance Limitations: no limitations History of Present Illness HPI narrative: alf patient. left sided CVA. Non mobile. Has been in the alf for more than a year. Feels like he is not progressing. has atrophy of his left arm and leg. spends most of his time in bed or the wheelchair. States he is taking antidepressants but they are not helping. Today he threatened to kill himself. Planned to break the windown next to his bed and use the glass to stab his chest. transferred to the ER states recent UTI and completed antibiotics. Has indwelling lira Related Data Home Medications ?Medication ?Instructions ?Recorded ?Confirmed aspirin 81 mg tablet,delayed 81 mg PO .QD 03/31/24 10/28/24 release Held on 10/29/24. Instructions: Resume on 10/31/24. flash glucose scanning reader 03/31/24 10/28/24 (FreeStyle Kathie 2 [place]) flash glucose sensor (FreeStyle 03/31/24 10/28/24 Kathie 2 Sensor kit) insulin glargine 100 unit/mL (3 15 unit subcut .QHS 03/31/24 10/28/24 mL) subcutaneous pen (Lantus Solostar U-100 Insulin) insulin syringe-needle U-100 1 mL 03/31/24 10/28/24 30 gauge x 7/16 atorvastatin 40 mg tablet 40 mg PO DAILY 06/05/24 10/28/24 gabapentin 100 mg capsule 100 mg PO TID 06/05/24 10/28/24 pantoprazole 40 mg tablet,delayed 40 mg PO .q24 06/05/24 10/28/24 release (Protonix) tamsulosin 0.4 mg capsule 0.4 mg PO .qhs 06/05/24 10/28/24 ticagrelor 90 mg tablet (Brilinta) 90 mg PO BID 06/05/24 10/28/24 Held on 10/29/24. Instructions: Resume on 10/31/24. trazodone 50 mg tablet 25 mg PO DAILY 06/05/24 10/28/24 insulin lispro 100 unit/mL 1 sliding scale dose subcut ACHS 09/29/24 10/28/24 subcutaneous pen (Admelog SoloStar U-100 Insulin lispro) magnesium hydroxide 400 mg/5 mL 5 ml PO .qhs PRN constipation 09/29/24 10/28/24 oral suspension (Dulcolax (magnesium hydroxide)) magnesium oxide 400 mg PO DAILY 09/29/24 10/28/24 metoprolol succinate 50 mg 50 mg PO QDAY 09/29/24 10/28/24 tablet,extended release 24 hr polyethylene glycol 3350 17 17 g PO DAILY 09/29/24 10/28/24 gram/dose oral powder (ClearLax) sennosides 8.6 mg tablet (Senna 17.2 mg PO DAILY 09/29/24 10/28/24 Lax) sennosides 8.6 mg-docusate sodium 1 tab-cap PO DAILY 09/29/24 10/28/24 50 mg tablet (Senna with Docusate Sodium) acetaminophen 1,000 mg PO TID PRN pain 10/28/24 10/28/24 finasteride 5 mg tablet 5 mg PO DAILY 10/28/24 10/28/24 Previous Rx's ?Medication ?Instructions ?Recorded levofloxacin 500 mg tablet 500 mg PO DAILY 7 days #7 tabs 10/29/24 Allergies Allergy/AdvReac Type Severity Reaction Status Date / Time No Known Drug Allergies Allergy Verified 07/10/25 18:54 Opioid HPI Opioid Management Most Recent Opioid Data: Last Pain Scale 8 05/30/25, 21:19 Last Pain Intensity 3 04/01/24, 10:16 Last ORT Total Score 4 10/28/24, 10:01 Last ORT Risk Category Moderate Risk 10/28/24, 10:01 Review of Systems ROS Status of ROS 10 or more systems reviewed and unremarkable except as noted in history and below [facility] Medical History Chronic indwelling Lira catheter ?Z97.8 - Presence of other specified devices (ICD-10) H/O: stroke with residual effects ?I69.30 - Unspecified sequelae of cerebral infarction (ICD-10) CKD (chronic kidney disease) ?N18.9 - Chronic kidney disease, unspecified (ICD-10) CVA (cerebral vascular accident) ?I63.9 - Cerebral infarction, unspecified (ICD-10) Anxiety and depression ?F41.9 - Anxiety disorder, unspecified (ICD-10) ?F32.A - Depression, unspecified (ICD-10) Benign prostatic hyperplasia with lower urinary tract symptoms ?N40.1 - Benign prostatic hyperplasia with lower urinary tract symptoms (ICD-10) Hemiplegia affecting left nondominant side ?G81.94 - Hemiplegia, unspecified affecting left nondominant side (ICD-10) Hematoma ?T14.8XXA - Other injury of unspecified body region, initial encounter (ICD-10) Bursitis ?M71.9 - Bursopathy, unspecified (ICD-10) History of CVA (cerebrovascular accident) ?Z86.73 - Personal history of transient ischemic attack (TIA), and cerebral infarction without residual deficits (ICD-10) DM2 (diabetes mellitus, type 2) ?E11.9 - Type 2 diabetes mellitus without complications (ICD-10) Osteoarthritis ?M19.90 - Unspecified osteoarthritis, unspecified site (ICD-10) HTN (hypertension) ?I10 - Essential (primary) hypertension (ICD-10) Hyperlipidemia ?E78.5 - Hyperlipidemia, unspecified (ICD-10) Surgical History H/O repair of right rotator cuff ?Z98.890 - Other specified postprocedural states (ICD-10) History of total left knee replacement ?Z96.652 - Presence of left artificial knee joint (ICD-10) Family History Sister Family history of cancer Mother Family history of cancer Grandmother Family history of stroke Social History Within the past year, how often did you have a drink containing alcohol: never Score interpretation: A score less than 4 is consistent with normal alcohol consumption. Smoking status: Former smoker Non-prescribed substance use: denies use Highest level of school completed/degree received: high school graduate Little interest or pleasure in doing things: not at all Feeling down, depressed, or hopeless: several days Exam Constitutional Vital Signs, click to edit/add: Last Vital Signs Temp 98.4 F 07/10/25 18:54 Pulse 76 07/10/25 18:54 Resp 18 07/10/25 18:54 BP 150/73 H 07/10/25 18:54 Pulse Ox 94 L 07/10/25 18:54 O2 Del Method Room Air 07/10/25 18:54 Common normals: no apparent distress, oriented x3, healthy appearing, alert and well nourished [facility] Common normals: normocephalic, head/scalp atraumatic and hearing grossly normal bilaterally Eye Common normals: PERRL, EOMs intact bilaterally and conjunctivae normal Chest Common normals: inspection of chest normal and palpation of chest normal Respiratory Common normals: normal respiratory effort, no retractions, no use of accessory muscles and clear to auscultation bilaterally Cardio Common normals: regular rate, regular rhythm, S1 normal heart sound and S2 normal heart sound GI Common normals: Normal to inspection, nondistended, normoactive bowel sounds present, soft to palpation and non-tender Extremity Common normals: normal to inspection and full ROM Neuro Common normals: oriented x3 and CN's II-XII intact bilaterally Other: flexor contractures left upper ext. Atrophy LLE. has cushion boot on left heel Psych Mood and affect: depressed mood Course Vital Signs Vital signs: Vital Signs Temperature 98.4 F 07/10/25 18:54 Pulse Rate 76 07/10/25 18:54 Respiratory Rate 18 07/10/25 18:54 Blood Pressure 150/73 H 07/10/25 18:54 Pulse Oximetry 94 L 07/10/25 18:54 Oxygen Delivery Method Room Air 07/10/25 18:54 Temperature 98.4 F 07/10/25 18:54 Pulse Rate 76 07/10/25 18:54 Respiratory Rate 18 07/10/25 18:54 Blood Pressure 150/73 H 07/10/25 18:54 Pulse Oximetry 94 L 07/10/25 18:54 Oxygen Delivery Method Room Air 07/10/25 18:54 Medical Decision Making [facility] Narrative Medical decision making narrative: patient presents from alf depressed and frustrated. Has been in the home for more than a year. His left side is paralyzed from a stroke. He feels like he has made no improvement and is down. Did have suicidal thoughts but no longer. He did speak to mental health and is now cleared by them to follow up with his therapist. basic labs including CBC, CMP WNL. neg acetaminophen , salicylates or alcohol. Lab Data Labs: Lab Results 07/10/25 Range/Units 19:30 WBC 4.4 (4.0-11.0) 10^3/uL RBC 4.30 L (4.70-6.10) 10^6/uL Hgb 11.6 L (14.0-18.0) g/dL Hct 35.3 L (42.0-54.0) % MCV 82.1 (80.0-94.0) fL MCH 27.0 (25.9-34.0) pg MCHC 32.9 (29.9-35.2) g/dL RDW 15.1 H (11.0-15.0) % Plt Count 225 (150-450) 10^3/uL MPV 9.2 L (9.5-13.5) fL Neut % (Auto) 57.2 (43.0-75.0) % Lymph % (Auto) 29.0 (20.5-60.0) % [place] % (Auto) 7.5 (1.7-12.0) % Eos % (Auto) 5.2 (0.9-7.0) % Baso % (Auto) 0.9 (0.2-2.0) % Neut # (Auto) 2.5 (1.4-6.5) 10^3/uL Lymph # (Auto) 1.3 (1.2-3.8) 10^3/uL [place] # (Auto) 0.3 (0.3-0.8) 10^3/uL Eos # (Auto) 0.2 (0.0-0.7) 10^3/uL Baso # (Auto) 0.0 (0.0-0.1) 10^3/uL Abs Immat Gran (auto) 0.01 (0.00-0.03) 10^3/uL Imm/Tot Granulo (auto) 0.2 (0.0-0.5) % Sodium 140 (136-145) mmol/L Potassium 4.1 (3.5-5.1) mmol/L Chloride 103 (98-107) mmol/L Carbon Dioxide 29.7 (21.0-32.0) mmol/L Anion Gap 11.4 BUN 22.0 H (7.0-18.0) mg/dL Creatinine 0.60 L (0.70-1.30) mg/dL Est GFR ( Amer) >60 (>=60 mL/min/1.73m^2) Est GFR (Non-Af Amer) >60 (>=60 mL/min/1.73m^2) BUN/Creatinine Ratio 36.7 Glucose 173 H (74-106) mg/dL Calcium 9.1 (8.5-10.1) mg/dL Total Bilirubin 0.3 (0.2-1.0) mg/dL AST 12 L (15-37) U/L ALT 27 (16-63) U/L Alkaline Phosphatase 106 (46-116) U/L Total Protein 7.1 (6.4-8.2) g/dL Albumin 3.6 (3.4-5.0) g/dL Globulin 3.5 g/dL Albumin/Globulin Ratio 1.0 Salicylates <2.8 (<=19.9) mg/dL Acetaminophen <2.0 L (10.0-30.0) ug/mL Ethanol Quant <3 mg/dL Discharge Plan Discharge Chief Complaint: Psychiatric Symptoms Clinical Impression: Depression Patient Disposition: Home, Self-Care Prescriptions / Home Meds: No Action atorvastatin 40 mg tablet 40 mg PO DAILY Brilinta 90 mg tablet 90 mg PO BID gabapentin 100 mg capsule 100 mg PO TID pantoprazole [Protonix] 40 mg tablet,delayed release (DR/EC) 40 mg PO .q24 tamsulosin 0.4 mg capsule 0.4 mg PO .qhs trazodone 50 mg tablet 25 mg PO DAILY magnesium hydroxide [Dulcolax (magnesium hydroxide)] 400 mg/5 mL suspension 5 ml PO .qhs PRN (Reason: constipation) magnesium oxide 400 mg magnesium capsule 400 mg PO DAILY metoprolol succinate 50 mg tablet extended release 24 hr 50 mg PO QDAY polyethylene glycol 3350 [ClearLax] 17 gram/dose powder 17 g PO DAILY sennosides [Senna Lax] 8.6 mg tablet 17.2 mg PO DAILY sennosides-docusate sodium [Senna with Docusate Sodium] 8.6-50 mg tablet 1 tab-cap PO DAILY insulin lispro [Admelog SoloStar U-100 Insulin] 100 unit/mL insulin pen 1 sliding scale dose SUBCUT ACHS aspirin 81 mg tablet,delayed release (DR/EC) 81 mg PO .QD (DME) insulin syringe-needle U-100 1 mL 30 gauge X 7/16 syringe MISCELLANEOUS insulin glargine [Lantus Solostar U-100 Insulin] 100 unit/mL (3 mL) insulin pen 15 unit SUBCUT .QHS (DME) FreeStyle Kathie 2 Sensor Kit MISCELLANEOUS (DME) FreeStyle Kathie 2 [place] Misc MISCELLANEOUS finasteride 5 mg tablet 5 mg PO DAILY acetaminophen 500 mg tablet 1,000 mg PO TID PRN (Reason: pain) levofloxacin 500 mg tablet 500 mg PO DAILY 7 Days Qty: 7 0RF Print Language: Estonian Instructions: Depression (ED) Additional Instructions: follow up with your doctor this upcoming week Referrals: Vinnie Garza DO [Primary Care Provider, Internal Medicine] - 1 week
[2025-07-10 19:37] LABS: Hematocrit 35.3 % (42.0-54.0); Hemoglobin 11.6 g/dL (14.0-18.0); Immature Granulocytes Abs Auto 0.01 10^3/uL (0.00-0.03); Immature Granulocytes Pct Auto 0.2 % (0.0-0.5); Lymphocytes Absolute Auto 1.3 10^3/uL (1.2-3.8); Mean Corpuscular HGB Conc 32.9 g/dL (29.9-35.2); Mean Corpuscular Hemoglobin 27.0 pg (25.9-34.0); Mean Corpuscular Volume 82.1 fL (80.0-94.0); Platelet Count 225 10^3/uL (150-450); Red Blood Count 4.30 10^6/uL (4.70-6.10); White Blood Count 4.4 10^3/uL (4.0-11.0)
[2025-07-10 19:53] LABS: Alanine Aminotransferase 27 U/L (16-63); Albumin Globulin Ratio 1.0; Albumin Level 3.6 g/dL (3.4-5.0); Alkaline Phosphatase 106 U/L (46-116); Anion Gap 11.4; Aspartate Amino Transferase 12 U/L (15-37); Blood Urea Nitrogen 22.0 mg/dL (7.0-18.0); Calcium 9.1 mg/dL (8.5-10.1); Carbon Dioxide 29.7 mmol/L (21.0-32.0); Chloride 103 mmol/L (98-107); Estimated GFR (African America >60 (>=60 mL/min/1.73m^2); Estimated GFR (Non-African Ame >60 (>=60 mL/min/1.73m^2); Globulin 3.5 g/dL; Glucose 173 mg/dL (74-106); Potassium 4.1 mmol/L (3.5-5.1); Sodium 140 mmol/L (136-145); Total Protein 7.1 g/dL (6.4-8.2)
[2025-07-10 19:55] LABS: Acetaminophen <2.0 ug/mL (10.0-30.0); Salicylate <2.8 mg/dL (<=19.9)
[2025-07-10] MEDS: ACETAMINOPHEN 325 MG TABLET 650 MG PO (20:37)
== END 2025-07-10 21:25 | disposition home or self-care (01) ==
PROVIDERS: Emergency Provider Internal Medicine; PCP Internal Medicine
DX: F32.A Depression, unspecified (principal); I69.998 Other sequelae following unspecified cerebrovascular disease; Z87.440 Personal history of urinary (tract) infections; Z87.891 Personal history of nicotine dependence
CPT/HCPCS: 36415; 80053; 80179; 80320; 80329; 81001; 85025; 93005; 99284

== ENCOUNTER 2025-10-20 13:02 | Emergency (ER) | payer MEDICARE, MEDICAID, SELFPAY ==
--- OUTSIDE RECORDS SUMMARY | 2024-08-18 08:30 | XMS_ITS ---
Author Organization [facility] Address [address] [place] [address] [place] [address] Care Team Providers Care Case Worker Name Role Phone Greg TOWNSEND, Vinnie Primary Care Provider Aamir Samson Unavailable [phone] Encounters Encounter Location Date Provider Diagnosis [facility] [place] [address] 08/18/2024 Aamir Cedillo Plan Of Treatment No Information Progress Notes * Cesar MASSEY WDOB:[birth year] (70 yo M)Acc No.[id number]:08/18/2024 Patient:?Cesar Massey :?LESTER MontañoMDOB:1955???Age:69 Y???Sex: MaleDate:08/18/2024hone:[phone]:[facility], [place], [place]Rqv:Vinnie Garza MD * Electronic signature of Aamir Cedillo DPM on 10/20/2025 at 01:42 PM ESTSign off status: Pending * Provider: Jhonny Cedillo DPM Date: 1 Generated for Printing/Faxing/eTransmitting on:?10/20/2025 01:42 PM EST
--- OUTSIDE RECORDS SUMMARY | 2025-02-16 10:15 | XMS_ITS ---
Author Organization [facility] Address [address] [place] [address] [place] [address] Care Team Providers Care Ordained Minister Name Role Phone Greg TOWNSEND, Vinnie Primary Care Provider Aamir Samson Unavailable [phone] Encounters Encounter Location Date Provider Diagnosis [facility] [address] [place] [address] 02/16/2025 Aamir Cedillo Plan Of Treatment No Information Progress Notes * Cesar MASSEY WDOB:[birth year] (70 yo M)Acc No.[id number]:02/16/2025 Patient:?Cesar Massey :?LESTER MontañoMDOB:1955???Age:69 Y???Sex: MaleDate:02/16/2025Phone:[phone]:[facility] [place], [place], [place]Rqq:Vinnie Garza MD * Electronic signature of Aamir Cdeillo DPM on 10/20/2025 at 01:41 PM ESTSign off status: Pending * Provider: Jhonny Cedillo DPM Date: 0 02/16/2025 Generated for Printing/Faxing/eTransmitting on:?10/20/2025 01:41 PM EST
--- OUTSIDE RECORDS SUMMARY | 2025-05-18 08:45 | XMS_ITS ---
Author Organization [facility] Address [address] [place] [address] [place] [address] Care Team Providers Care Recreation Teacher Name Role Phone Greg TOWNSEND, Vinnie Primary Care Provider Aamir Samson Unavailable [phone] Encounters Encounter Location Date Provider Diagnosis [facility] [place] [address] 05/18/2025 Aamir Cedillo Plan Of Treatment No Information Progress Notes * Cesar MASSEY WDOB:[birth year] (70 yo M)Acc No.[id number]:05/18/2025 Patient:?Cesar Massey :?LESTER MontañoMDOB:1955???Age:69 Y???Sex: MaleDate:05/18/2025Phone:[phone]:[facility], [place], [place]Vvc:Vinnie Garza MD * Electronic signature of Aamir Cedillo DPM on 10/20/2025 at 01:41 PM ESTSign off status: Pending * Provider: Jhonny Cedillo DPM Date: 0 05/18/2025 Generated for Printing/Faxing/eTransmitting on:?10/20/2025 01:41 PM EST
--- OUTSIDE RECORDS SUMMARY | 2025-08-17 08:00 | XMS_ITS ---
Author Organization [facility] Address [address] [place] [address] [place] [address] Care Team Providers Care Fleet Technician Name Role Phone Greg TOWNSEND, Vinnie Primary Care Provider Aamir Samson Unavailable [phone] Encounters Encounter Location Date Provider Diagnosis [facility] [place] [address] 2025 Aamir Cedillo Plan Of Treatment No Information Progress Notes * Cesar MASSEY WDOB:[birth year] (70 yo M)Acc No.[id number] Patient:?Cesar Massey :?LESTER MontañoMDOB:1955???Age:70 Y???Sex: MaleDate:2025Phone:[phone]:[facility], [place], [place]Vkj:Vinnie Garza MD * Electronic signature of Aamir Cedillo DPM on 10/20/2025 at 01:40 PM ESTSign off status: Pending * Provider: hJonny Cedillo DPM Date: 1 Generated for Printing/Faxing/eTransmitting on:?10/20/2025 01:40 PM EST
[2025-10-20 13:05] VITALS: BP 147/69; PULSE 51; TEMP 36.9; O2SAT 96; BMI 26.4
--- NOTE | 2025-10-20 13:11 | CT_ITS ---
The [address] [address] Patient Name: VASHTI MASSEY MRN: [id number] date: 1955 Sex: M Assigned Patient Location: ED.MAIN Current Patient Location: ED.MAIN Accession/Order Number: [id number] Exam Date: 10/20/2025 14:05 Report Date: 10/20/2025 15:33 At the request of: BRCUE LUGO DO Procedure: CT abdomen pelvis wo con CT Abdomen and Pelvis withoutcontrast TECHNIQUE: Axial imaging with 2-D reconstruction. The CT exam was performed using one or more the following dose reduction techniques: Automated exposure control, adjustment of the MA and/or Kv according to patient size, or use of the iterative reconstruction technique. COMPARISON: MRI the abdomen 12/02/2024 History: Gross hematuria. Chronic Cyr catheterization. LIMITATIONS: None LOWER THORAX Unremarkable LIVER: Unremarkable GALLBLADDER: Cholelithiasis. Gallbladder distention. BILE DUCTS: No dilatation SPLEEN: Unremarkable PANCREAS: Unremarkable ADRENAL GLANDS: Unremarkable KIDNEYS:Small bilateral renal cysts. Large complex cyst cystic or pole left kidney similar to prior examination. 5 mm right nephrolithiasis. No hydronephrosis. AORTA: No abdominal aortic aneurysm identified. Atherosclerosis. RETROPERITONEUM: No significant retroperitoneal abnormalities identified. MESENTERY:Unremarkable STOMACH:Unremarkable SMALL BOWEL: The small bowel loops are nondistended. APPENDIX: The appendix is normal. COLON: The rectum moderately distended with stool. May represent impaction. Mild constipation. URINARY BLADDER: Cyr catheter and nondistended urinary bladder. Urinary bladder wall thickening with mild adjacent stranding. May represent cystitis. High density within the lumen may represent bladder stones. REPRODUCTIVE SYSTEM: Reproductive structures are unremarkable. PNEUMOPERITONEUM: None PERITONEAL FLUID:None BONY STRUCTURES: L5 pars defects. Mild L5-S1 anterolisthesis and spondylosis. ABDOMINAL WALL: Unremarkable CT/CT abdomen pelvis wo con IMPRESSION: Cyr catheter in adequate position. Urinary bladder wall thickening adjacent stranding. Consideration for cystitis. High density material within the lumen suggesting stone and/or blood. No hydronephrosis. No obstructing ureteral stone. Similar complex is cystic lesion left kidney. Bilateral small renal cysts. Cholelithiasis. Mild gallbladder distention. Impression dictated by: Javier Wu M.D. 10/20/2025 3:33 PM Dictation Location: [place] [address] Electronically authenticated by: [id number] Y Date: 10/20/2025 15:33
--- OUTSIDE RECORDS SUMMARY | 2025-10-20 13:40 | XMS_ITS | Continuity of Care Document ---
Author Organization [facility] Address [address] [place] [address] Care Team Providers Care Finisher Screwdown Name Role Phone Vinnie Garza DO Attending Physician [phone] Medications Medication Frequency Instructions Diagnosis Start Date End Date Status Last Administered acetaminophen 500 mg tablet Every 8 Hours - PRN 2 tabs, oral, Every 8 Hours - PRN, as needed for pain 05/02/20250038Jdrlvm89/20/2025 09:48 PMacetic acid 0.25 % solutionOnce A Jeh630Cfu, irrigation, Once A Day, Flush 100 Mls one time a day then 3 times a day prn as needed.N40.1 : Benign prostatic hyperplasia with lower urinary tract symptoms 9694Ljwzor40/22/2025 12:01 PMacetic acid 0.25 % solutionAs Iaqerq682jgo, irrigation, As Needed, Irrigate 100Mls 3 Times a day as needed.N40.1 : Benign prostatic hyperplasia with lower urinary tract dnojjicd95/07/2025Active 10/15/2025 01:57 PMAdmelog SoloStar U-100 Insulin (insulin lispro) 100 unit/mL insulin penThree Times A DayPer Sliding Scale, subcutaneous, Three Times A Day, If Blood Sugar is 151 to 200, give 3 Units.If Blood Sugar is 201 to 250, give 5 Units.If Blood Sugar is 251 to 300, give 7 Units.If Blood Sugar is 301 to 350, give 9 Units.If Blood Sugar is 351 to 400, give 11 Units.If Blood Sugar is 401 to 450, give 13 Units., before lunch, dinner, and at hsE11.36 : Type 2 diabetes mellitus with diabetic dkhqylns57/28/3108Icxilz59/ 04:06 PMaspirin 81 mg tablet,chewableOnce A Day81 mg, oral, Once A DayI63.9 : Cerebral infarction, uksvdgsevho29/03/2255Lrbwgt25/22/2025 10:53 AMatorvastatin 40 mg tabletAt Kumemqh87 mg, oral, At XvwuubrQ96.1 : Pure tclueiglsgfarpprd06/03/202510/16/2025 09:31 PMBiofreeze (menthol) (menthol) 5 % gelThree Times A Day - PRN one application, topical, Three Times A Day - PRN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 04/28/2025tiveclotrimazole-betamethasone 1-0.05 % creamTwice A Day - PRNone application, topical, Twice A Day - PRN 05/15/2025tiveColace (docusate sodium) 100 mg capsuleOnce A Day1 capsule, oral, Once A Day 09/23/20255268Ikivkz85/22/2025 10:53 AMDulcolax (bisacodyl) (bisacodyl) 10 mg suppositoryOnce A Day - PRN10 mg, rectal, Once A Day - PRNK59.00 : Constipation, npscnryrxiq59/03/6465Efexqz88/15/2025 05:22 PMFerrex 150 (polysaccharide iron complex) 150 mg iron capsuleOnce A Dayone capsule, oral, Once A DayD64.9 : Anemia, nosjhxfvlno13/03/5977Ivceql91/22/2025 10:53 AMfinasteride 5 mg tablet Once A Day5 mg, oral, Once A DayN40.1 : Benign prostatic hyperplasia with lower urinary tract zywbmmqi81/03/0805Lbvmje40/22/2025 10:53 AMfolic acid 1 mg tablet Once A Day1 mg, oral, Once A DayD64.9 : Anemia, /03/202510/17/2025 10:53 AMgabapentin 100 mg capsuleThree Times A Dub529 mg, oral, Three Times A Day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04/28/20254056Tyftju76/22/2025 01:26 PMKeppra (levetiracetam) 500 mg tabletTwice A Zhk389 mg, oral, Twice A DayR56.1 : Post traumatic vaudnqvd78/03/4743Avxjyz23/22/2025 10:53 AMLantus Solostar U-100 Insulin (insulin glargine) 100 unit/mL (3 mL) insulin penAt Tmxgeha55 units, subcutaneous, At BbrzkeeQ45.36 : Type 2 diabetes mellitus with diabetic cataract 08/03/20250422Xsvanp78/21/2025 09:31 PMLexapro (escitalopram oxalate) 20 mg tablet Once A Day1 tablet, oral, Once A DayF33.9 : Major depressive disorder, recurrent, kdzeagwvnny77/19/3982Yawwpo67/22/2025 10:53 AMmagnesium oxide 400 mg (241.3 mg magnesium) tabletOnce A Day1 tab, oral, Once A DayM62.81 : Muscle weakness (generalized)04/28/20251134Qkiyxx55/22/2025 10:53 AMmelatonin 3 mg tabletAt Bedtime3 mg, oral, At EbbybzhC51.01 : Primary /03/6606Uhekae87/21/2025 09:31 PMMetamucil (psyllium husk) 3.4 gram/5.4 gram powderOnce A Day3.4 grams, oral, Once A DayK59.00 : Constipation, ejynejfylhi76/03/6957Izyxbt51/22/2025 05:47 AMmetoprolol succinate 50 mg tablet extended release 24 hrOnce A Day50 mg, oral, Once A DayI47.20 : Ventricular tachycardia, tuadyblcjnj00/03/202510/17/2025 10:53 AMomeprazole 20 mg capsule,delayed release(DR/EC)Once A Day1 capsule, oral, Once A DayK21.9 : Gastro-esophageal reflux disease without ljjsslblazg36/04/7688Yqzscl72/22/2025 05:47 AMRemeron (mirtazapine) 15 mg tablet At Bedtime1 tab, oral, At ZkzovwaS70.9 : Major depressive disorder, recurrent, mfftxovqrgj24/12/1035Txahyn99/21/2025 09:31 PMtamsulosin 0.4 mg capsuleAt Bedtime0.4 mg, oral, At PgxzggoI30.1 : Benign prostatic hyperplasia with lower urinary tract hwxqzeey68/03/3213Ueafdu66/21/2025 09:31 PMloperamide 2 mg capsule Three Times A Day - PRNone capsule, oral, Three Times A Day - PRNK82.4 : Cholesterolosis of btmqemirgin63Not Active Problems Code Type Problem ICD Code Effective Date Status ICD-10 Cerebral infarction, unspecified I63.9 07/2024 Active ICD-10 Hemiplegia and hemip aresis following cerebral infarction affecting left non-dominant side I69.354 06/01/2024 Active ICD-10 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, bilateral E11.3393 06/30/2025 Active ICD-10 Other generalized ep ilepsy and epileptic syndromes, not intractable, without status epilepticus G40.409 04/28/2025 Active ICD-10 Dysphagia following unspecified cerebrovascular disease [...] Active ICD-10 Retention of urine, unspecified R33.9 0804/2024 Active ICD-10 Nontraumatic subarac hnoid hemorrhage, unspecified [...] Ventricular tachycardia, unspecified I47.20 06/01/2024 Active ICD-10 Constipation, unspecified K59.00 10/13/2024 Active ICD-10 Dysphagia, oral phase R13.11 09/26/2024 Act bety 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 Active ICD-10 Nutritional deficiency, unspecified E63.9 05/04/2025 Active ICD-10 Other seizures G40.89 04/27/2025 Active ICD-10 Essential (primary) hypertension I10 11/2024 Active ICD-10 Neuromuscular dysfun ction of bladder, unspecified N31.9 06/28/2025 Active 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 A ctive ICD-10 Encounter for immunization Z23 Active ICD-10 Syncope and collapse R55 11/25/2024 Acti ve ICD-10 Acute kidney failure, unspecified N17.9 Active Current Allergies and Intolerances No known allergies Vital Signs Height: 70.0 in Date / Time Temperature Pulse (per minute) Respirations (per minute) Systolic BP (mmHg) Diastolic BP (mmHg) O2 Saturation (%) Weight BMI 10/07/2025 10:08 AM 97.7 F 61 18 152 75 95.0 10/07/2025 05:15 AM 96.0 10/07/2025 05:14 AM97.9 [id number] 10/06/2025 06:15 PM98.0 [id number] 10/01/2025 02:13 PM98.1 [id number] 09/27/2025 02:56 PM 214.2 lbs30.7309/02/2025 03:17 PM 213.2 lbs30.5908/31/2025 08:09 PM 208.6 lbs29.9308/31/2025 02:25 PM98.3 [id number] 08/30/2025 02:51 PM 214.8 lbs30.8210 11:40 AM98.3 F 08/04/2025 02:31 AM98.2 F 08/03/2025 04:35 PM98.0 F 08/03/2025 09:58 AM98.3 F 08/03/2025 06:55 AM98.2 F 07/28/2025 01:59 PM [id number] 202.0 lbs28.9807/27/2025 12:51 AM 207.4 lbs29.7609 09:48 PM 74891610160.0 06/27/2025 02:40 PM 88771255931.0 05/30/2025 06:16 PM 59 9830330.0 05/28/2025 07:45 PM 62 6787071.0 05/06/2025 10:38 AM 16 98.0 05/05/2025 09:40 AM 18 Advance Directives Directive Note Do Not Resuscitate (DNRCCA) Insurance Providers Payer Policy type Group Name Group number Policy ID Address Ph one Medicare A Medicare Part A [id number]: Fax:[employer] [id number]: Fax:[employer] Part BCommercial Insurance [id number]: Fax:Vaccinations - OptumLike Medicare Part B [id number] [address] [place] [address] Phone: Fax[place] ([facility]) [id number]: Fax:Managed Coins MedicaidMedicaid ([facility]) [id number]: Fax:Managed Coins PrivatePrivate Phone: Fax:Resident ResourcePrivate Phone: Fax:Private PayPrivate Phone: Fax:Private Pay EMORY DENYPrivate Phone: Fax: Immunizations Vaccine Button Buttonhole Marker Date Status Dose Series Complete COVID-19 Vaccine 08/08/2025Refused COVID-19 Vaccine 01/05/2025Refused COVID-19 Vaccine 4Refused COVID-19 Vaccine 4Refused Influenza Vaccinesanofi uuaqjov47/06/2025Completed Influenza Vaccinesanofi pasteur fluzone high dose4Completed Pneumococcal Vaccine 4Refused Pneumococcal Vaccine 4Refused RSV Vaccine 4Refused RSV Vaccine 4Refused Procedures Not available for this record Results Name Date Time Positive/Negative Value Unit Range Blood Sugar 10/17/2025 04:05 PM 149.0mg/dLBlood Sugar2:00 PM178.0mg/dLBlood Sugar9:31 PM 163.0mg/dLBlood Sugar3:40 PM175.0mg/dLBlood Sugar0:15 AM 193.0mg/dLBlood Sugar:46 PM223.0mg/dLBlood Sugar504:24 PM 160.0mg/dLBlood Sugar510:01 AM185.0mg/dLBlood Sugar508:45 PM 172.0mg/dLBlood Sugar504:17 PM175.0mg/dLBlood Sugar509:55 AM 235.0mg/dLBlood Sugar510:31 PM123.0mg/dLBlood Sugar504:22 PM 167.0mg/dLBlood Sugar:53 AM230.0mg/dLBlood Sugar:02 PM 215.0mg/dLBlood Sugar:25 PM208.0mg/dLBlood Sugar:21 AM 232.0mg/dLBlood Sugar:44 PM159.0mg/dLBlood Sugar:16 PM 259.0mg/dLBlood Sugar510:18 AM174.0mg/dLBlood Sugar:40 PM 147.0mg/dLBlood Sugar:50 PM94.0mg/dLBlood Sugar510:01 AM 145.0mg/dLBlood Sugar510:23 PM226.0mg/dLBlood Sugar505:40 PM 157.0mg/dLBlood Sugar511:25 AM202.0mg/dLBlood Sugar509:27 PM 122.0mg/dLBlood Sugar503:59 PM184.0mg/dLBlood Sugar511:59 AM 256.0mg/dLBlood Sugar511:31 PM172.0mg/dLBlood Sugar503:24 PM 294.0mg/dLBlood Sugar:09 AM211.0mg/dLBlood Sugar:02 PM 174.0mg/dLBlood Sugar505:13 PM162.0mg/dLBlood Sugar:50 AM 163.0mg/dLBlood Sugar508:49 PM296.0mg/dLBlood Sugar:10 PM 126.0mg/dLBlood Sugar:25 AM261.0mg/dLBlood Sugar:55 PM 363.0mg/dLBlood Sugar:02 PM249.0mg/dLBlood Sugar:10 AM 197.0mg/dLBlood Sugar:49 PM222.0mg/dLBlood Sugar:22 PM 286.0mg/dLBlood Sugar:23 AM203.0mg/dLBlood Sugar:47 PM 286.0mg/dLBlood Sugar:33 PM222.0mg/dLBlood Sugar:13 AM 165.0mg/dLBlood Sugar:38 PM223.0mg/dLBlood Sugar:18 PM 134.0mg/dLBlood Sugar:40 AM202.0mg/dLBlood Sugar:39 PM 168.0mg/dLBlood Sugar:16 PM146.0mg/dLBlood Sugar:36 AM 202.0mg/dLBlood Sugar:05 PM176.0mg/dLBlood Sugar:54 PM 133.0mg/dLBlood Sugar:01 PM183.0mg/dLBlood Sugar:57 PM 223.0mg/dLBlood Sugar:28 PM193.0mg/dLBlood Sugar:37 AM 126.0mg/dLBlood Sugar:59 PM203.0mg/dLBlood Sugar:07 PM 194.0mg/dLBlood Sugar:03 PM173.0mg/dLBlood Sugar:49 PM 241.0mg/dLBlood Sugar:20 PM223.0mg/dLBlood Sugar:11 AM 144.0mg/dLBlood Sugar:41 PM187.0mg/dLBlood Sugar:34 PM 344.0mg/dLBlood Sugar:02 AM224.0mg/dLBlood Sugar:07 PM 134.0mg/dLBlood Sugar:30 PM203.0mg/dLBlood Sugar:44 AM 174.0mg/dLBlood Sugar:17 PM218.0mg/dLBlood Sugar:38 PM 209.0mg/dLBlood Sugar:33 AM189.0mg/dLBlood Sugar:51 PM 234.0mg/dLBlood Sugar:00 PM224.0mg/dLBlood Sugar:50 AM 150.0mg/dLBlood Sugar:39 PM394.0mg/dLBlood Sugar503:12 PM 256.0mg/dLBlood Sugar:16 AM152.0mg/dLBlood Sugar:49 PM 185.0mg/dLBlood Sugar505:30 PM159.0mg/dLBlood Sugar:01 AM 168.0mg/dLBlood Sugar508:30 PM179.0mg/dLBlood Sugar:24 PM 178.0mg/dLBlood Sugar510:28 AM125.0mg/dLBlood Sugar510:13 PM 123.0mg/dLBlood Sugar504:16 PM153.0mg/dLBlood Sugar510:31 AM 143.0mg/dLBlood Sugar509:26 PM296.0mg/dLBlood Sugar504:15 PM 140.0mg/dLBlood Sugar:24 AM216.0mg/dLBlood Sugar508:50 PM 156.0mg/dLBlood Sugar:11 PM211.0mg/dLBlood Sugar:09 AM 143.0mg/dLBlood Sugar:10 PM164.0mg/dLBlood Sugar505:11 PM 203.0mg/dLBlood Sugar:04 AM224.0mg/dLBlood Sugar508:37 PM 281.0mg/dLBlood Sugar504:12 PM150.0mg/dLBlood Sugar510:39 AM 175.0mg/dLBlood Sugar508:41 PM265.0mg/dLBlood Sugar504:20 PM 325.0mg/dLBlood Sugar510:51 AM202.0mg/dLBlood Sugar510:34 PM 160.0mg/dLBlood Sugar504:22 PM268.0mg/dLBlood Sugar510:26 AM 205.0mg/dLBlood Sugar504:38 PM343.0mg/dLBlood Sugar511:17 AM 144.0mg/dLBlood Sugar509:16 PM134.0mg/dLBlood Sugar:04 PM 184.0mg/dLBlood Sugar510:49 AM214.0mg/dLBlood Sugar509:43 PM 229.0mg/dLBlood Sugar504:17 PM210.0mg/dLBlood Sugar510:55 AM 178.0mg/dLBlood Sugar509:08 PM147.0mg/dLBlood Sugar:35 PM 268.0mg/dLBlood Sugar:15 AM158.0mg/dLBlood Sugar508:36 PM 274.0mg/dLBlood Sugar:15 PM163.0mg/dLBlood Sugar:50 AM 222.0mg/dLBlood Sugar:34 PM154.0mg/dLBlood Sugar:28 PM 211.0mg/dLBlood Sugar:57 AM265.0mg/dLBlood Sugar508:20 PM 327.0mg/dLBlood Sugar:56 PM193.0mg/dLBlood Sugar:13 AM 204.0mg/dLBlood Sugar:17 PM187.0mg/dLBlood Sugar:05 PM 249.0mg/dLBlood Sugar510:38 AM121.0mg/dLBlood Sugar508:33 PM 259.0mg/dLBlood Sugar504:12 PM112.0mg/dLBlood Sugar510:13 AM 232.0mg/dLBlood Sugar508:54 PM151.0mg/dLBlood Sugar504:14 PM 182.0mg/dLBlood Sugar510:00 AM233.0mg/dLBlood Sugar510:59 PM 175.0mg/dLBlood Sugar:17 PM213.0mg/dLBlood Sugar:16 AM 207.0mg/dLBlood Sugar508:31 PM294.0mg/dLBlood Sugar:02 PM 253.0mg/dLBlood Sugar:02 AM193.0mg/dLBlood Sugar:17 PM 216.0mg/dLBlood Sugar:00 AM210.0mg/dLBlood Sugar:45 AM 145.0mg/dLBlood Sugar:41 PM246.0mg/dLBlood Sugar:18 PM 206.0mg/dLBlood Sugar:17 AM166.0mg/dLBlood Sugar:53 PM 183.0mg/dLBlood Sugar:22 PM189.0mg/dLBlood Sugar:11 AM 242.0mg/dLBlood Sugar:40 PM144.0mg/dLBlood Sugar:32 PM 167.0mg/dLBlood Sugar:18 AM206.0mg/dLBlood Sugar:55 PM 235.0mg/dLBlood Sugar:43 PM245.0mg/dLBlood Sugar:35 AM 208.0mg/dLBlood Sugar:13 PM248.0mg/dLBlood Sugar505:03 PM 207.0mg/dLBlood Sugar:10 AM211.0mg/dLBlood Sugar:19 PM 164.0mg/dLBlood Sugar504:34 PM167.0mg/dLBlood Sugar511:34 AM 159.0mg/dLBlood Sugar:20 PM141.0mg/dLBlood Sugar503:50 PM 175.0mg/dLBlood Sugar:03 AM238.0mg/dLBlood Sugar:52 AM 137.0mg/dLBlood Sugar:05 PM184.0mg/dLBlood Sugar504:09 PM 182.0mg/dLBlood Sugar510:16 AM201.0mg/dLBlood Sugar:19 AM 117.0mg/dLBlood Sugar:14 PM165.0mg/dLBlood Sugar:55 PM 194.0mg/dLBlood Sugar:44 AM164.0mg/dLBlood Sugar:26 AM 130.0mg/dLBlood Sugar:41 PM192.0mg/dLBlood Sugar:33 PM 246.0mg/dLBlood Sugar:23 AM192.0mg/dLBlood Sugar:58 AM 121.0mg/dLBlood Sugar508:47 PM175.0mg/dLBlood Sugar:56 PM 225.0mg/dLBlood Sugar510:33 AM201.0mg/dLBlood Sugar:24 AM 114.0mg/dLBlood Sugar:44 PM268.0mg/dLBlood Sugar504:24 PM 138.0mg/dLBlood Sugar510:49 AM164.0mg/dLBlood Sugar505:50 AM 111.0mg/dLBlood Sugar510:07 PM226.0mg/dLBlood Sugar504:28 PM 184.0mg/dLBlood Sugar511:25 AM138.0mg/dLBlood Sugar10/22/967263:57 AM 202.0mg/dLBlood Sugar508:49 PM376.0mg/dLBlood Sugar504:27 PM 277.0mg/dLBlood Sugar510:00 AM224.0mg/dLBlood Sugar505:34 AM 128.0mg/dLBlood Sugar509:21 PM211.0mg/dLBlood Sugar504:51 PM 192.0mg/dLBlood Sugar:14 PM201.0mg/dLBlood Sugar506:15 AM 156.0mg/dLBlood Sugar:53 PM137.0mg/dLBlood Sugar:09 PM 151.0mg/dLBlood Sugar:23 AM180.0mg/dLBlood Sugar506:37 AM 143.0mg/dLBlood Sugar:31 PM164.0mg/dLBlood Sugar504:02 PM 136.0mg/dLBlood Sugar511:28 AM173.0mg/dLBlood Sugar506:53 AM 138.0mg/dLBlood Sugar:16 AM185.0mg/dLBlood Sugar504:22 PM 180.0mg/dLBlood Sugar511:12 AM161.0mg/dLBlood Sugar506:19 AM 138.0mg/dLBlood Sugar508:28 PM246.0mg/dLBlood Sugar504:09 PM 171.0mg/dLBlood Sugar510:32 AM152.0mg/dLBlood Sugar505:44 AM 132.0mg/dLBlood Sugar508:17 PM244.0mg/dLBlood Sugar504:11 PM 322.0mg/dLBlood Sugar:54 AM163.0mg/dLBlood Sugar:13 AM 116.0mg/dLBlood Sugar:46 PM164.0mg/dLBlood Sugar:06 PM 174.0mg/dLBlood Sugar:03 AM220.0mg/dLBlood Sugar:40 AM 131.0mg/dLBlood Sugar:53 PM155.0mg/dLBlood Sugar:20 PM 200.0mg/dLBlood Sugar:05 AM173.0mg/dLBlood Sugar:57 AM 114.0mg/dLBlood Sugar:18 PM149.0mg/dLBlood Sugar:12 PM 121.0mg/dLBlood Sugar:35 AM118.0mg/dLBlood Sugar:06 AM 122.0mg/dLBlood Sugar508:13 PM270.0mg/dLBlood Sugar:17 PM 127.0mg/dLBlood Sugar:17 AM166.0mg/dLBlood Sugar506:20 AM 120.0mg/dLBlood Sugar:07 PM122.0mg/dLBlood Sugar504:06 PM 154.0mg/dLBlood Sugar:23 AM152.0mg/dLBlood Sugar505:57 AM 148.0mg/dLBlood Sugar:07 PM148.0mg/dLBlood Sugar:25 AM 168.0mg/dLBlood Sugar:27 AM137.0mg/dLBlood Sugar:40 PM 263.0mg/dLBlood Sugar:20 PM163.0mg/dLBlood Sugar10:58 AM 193.0mg/dLBlood Sugar:56 AM111.0mg/dLBlood Sugar508:46 PM 194.0mg/dLBlood Sugar:44 PM196.0mg/dLBlood Sugar510:02 AM 202.0mg/dLBlood Sugar:14 AM111.0mg/dLBlood Sugar:43 PM 141.0mg/dLBlood Sugar:18 PM148.0mg/dLBlood Sugar:52 AM 281.0mg/dLBlood Sugar:38 AM97.0mg/dLBlood Sugar:06 PM 174.0mg/dLBlood Sugar:06 PM143.0mg/dLBlood Sugar:40 AM 173.0mg/dLBlood Sugar:21 AM169.0mg/dLBlood Sugar:14 PM 184.0mg/dLBlood Sugar:23 PM123.0mg/dLBlood Sugar:38 PM 147.0mg/dLBlood Sugar:49 AM124.0mg/dLBlood Sugar511:04 PM 194.0mg/dLBlood Sugar504:28 PM215.0mg/dLBlood Sugar510:58 AM 116.0mg/dLBlood Sugar505:52 AM124.0mg/dLBlood Sugar508:24 PM 226.0mg/dLBlood Sugar503:59 PM161.0mg/dLBlood Sugar510:00 AM 227.0mg/dLBlood Sugar:13 AM110.0mg/dLBlood Sugar10508:41 PM 258.0mg/dLBlood Sugar:15 PM155.0mg/dLBlood Sugar:03 AM 126.0mg/dLBlood Sugar:06 AM104.0mg/dLBlood Sugar:56 PM 134.0mg/dLBlood Sugar504:43 PM352.0mg/dLBlood Sugar:49 PM 327.0mg/dLBlood Sugar:08 AM131.0mg/dLBlood Sugar:10 PM 178.0mg/dLBlood Sugar:05 PM143.0mg/dLBlood Sugar:19 AM 172.0mg/dLBlood Sugar:36 AM78.0mg/dLBlood Sugar:50 PM 330.0mg/dLBlood Sugar:14 PM146.0mg/dLBlood Sugar:46 AM 115.0mg/dLBlood Sugar:02 AM107.0mg/dLBlood Sugar:32 PM 185.0mg/dLBlood Sugar:31 PM120.0mg/dLBlood Sugar:32 AM 178.0mg/dLBlood Sugar:06 AM112.0mg/dLBlood Sugar509:15 PM 157.0mg/dLBlood Sugar504:35 PM137.0mg/dLBlood Sugar:12 AM 153.0mg/dLBlood Sugar:11 AM115.0mg/dLBlood Sugar510:12 PM 137.0mg/dLBlood Sugar505:34 PM283.0mg/dLBlood Sugar09/25/364428:09 AM 221.0mg/dLBlood Sugar4:59 AM123.0mg/dLBlood Sugar1:29 PM 233.0mg/dLBlood Sugar503:21 PM177.0mg/dLBlood Sugar0:21 AM 73.0mg/dLBlood Sugar506:56 AM100.0mg/dLBlood Sugar508:42 PM 181.0mg/dL Goals Goal Date 2. Will be free of s/s dehyd ration, fluid overload, electrolyte imbalance through next review 12/28/2025 1. Will be free of significa nt weight changes q month 5% +/- per nursing/grand rounds, weight reports 12/28/2025 Resident will maintain current level of function and have needs met 12/28/2025 Resident will remain free from injury. 0 12/28/2025 Resident's skin will remain intact. 01/2026 Resident will not exhibit si gns of drug related: sedation, hypotension, or anticholinergic symptoms. 12/28/2025 Resident will not have signs of hypoglyc emia or hyperglycemia. 12/28/2025 Resident will have a regular , soft-formed bowel movement _3 times per week. 12/28/2025 Resident will have catheter care managed appropriately as evidenced by not exhibiting signs of infection or urethral trauma. 12/28/2025 Resident's EBP will reduce t he spread of infectious agents and minimize the transmission of infections. 12/28/2025 Resident will not exhibit sk in breakdown, constipation/impaction, impaired social interaction, secondary to bowel incontinence. 12/28/2025 Resident will have documente d episodes of continence weekly thru next review 12/28/2025 Resident's code status decis ion will be honored daily through next review date 12/28/2025 Cesar will participate in leave of absence (LEIGHA) with family/friends and follow facility LEIGHA rules through next review 12/28/2025 Resident will not harm self. 12/28/2025 Resident will not make sexua lly inappropriate comments directed at other residents, visitors, and/or staff. 12/28/2025 Resident will express satisf action with daily routine and leisure activities. 12/28/2025 Resident will be free from _ __ (e.g., tooth decay, inflamed gums, swollen or bleeding gums, oral abscess, ulcers or rashes). 12/28/2025 Resident will not experience negative consequences of vision loss as evidenced by remaining physically safe and participating in social and self-care activities. 12/28/2025 Resident will hear, process, and underst and communication. 12/28/2025 Resident will develop effective coping s trategies to help adapt to pain. 12/28/2025 The resident will remain carmelina e of complications or discomfort related to Hemiplegia/Hemiparesis through review date. 12/28/2025 Resident will not exhibit si gns of choking, aspiration, dehydration, or malnutrition. 12/28/2025 The resident will remain carmelina e from discomfort, complications or s/sx related to dx of GERD through review date . 12/28/2025 The resident will remain carmelina e of s/sx or complications related to anemia through review date . 12/28/2025 The resident will have no s/ sx of complications r/t fluid deficit or overload through the review date . 12/28/2025 The resident will remain carmelina e of s/sx of distress, symptoms of depression, anxiety or sad mood by/through review date 12/28/2025 The resident will maintain a cceptable level of comfort through review date. ( 12/28/2025 Will have no complaints of insomnia 01/2026 Resident will remain free fr om signs and symptoms of abnormal bleeding or bruising through next review. 12/28/2025 Resident will not exhibit so cially inappropriate/disruptive behavior. Behavior pattern: yelling out for help then stating he doesn't need anything 12/28/2025 Resident will participate in restorative ROM 6-7days/week 15min daily 12/28/2025 Resident will express need and acceptanc e of placement through next review 12/28/2025 The resident will be free fr om injury from seizure activity through the review date 12/28/2025 Resident's will not have any cardiac com plications. 12/28/2025 Encounters Admission Date Discharge Date Description MRN Visit Count 06/01/2024 15:30 LTPAC [id number]
--- OUTSIDE RECORDS SUMMARY | 2025-10-20 13:41 | XMS_ITS | Patient Health Record ---
Author Organization [facility] Address [address] [place] [address] [place] [address] Care Team Providers Care Rib Stiffener And Heel Dipper Name Role Phone Vinnie Garza MD Primary Care Provider Aamir Samson Unavailable [phone] Reason For Referral No Information Encounters Encounter Location Date Provider Diagnosis [facility] [address] [place] [address] [facility] [place] [address] [place] [address]/Aamir Mejias Plan Of Treatment No Information Insurance Providers Payer Name Payer Address Payer Phone Subscriber Number Group Number Insured Name Patient Relationship to Insured Coverage Start Date Coverage End Date Photos I Like/[facility] [address] [address] [place] [address] [id number], RichardSelf - patient is the insured
--- OUTSIDE RECORDS SUMMARY | 2025-10-20 13:42 | XMS_ITS | Clinical Summary ---
Author Organization [facility] Address [address] [place] [address] Phone Care Team Providers Care Precast Worker Name Role Phone Unavailable Primary Care Provider Unavailabl e Allergies No known active allergies Medications MedicationSigDispense QuantityRefillsLast FilledStart DateEnd DateStatus insulin lispro 100 unit/mL injection Inject under the skin 3 times daily (morning, midday, late afternoon). per sliding scale: <150 = 0 units 151-200 = 2 units 201-250 = 4 units 251-300 = 6 units 301-350 = 8 units 351-400 = 10 units >400 = call MDActive aspirin 81 mg EC tablet Take 1 tablet (81 mg) by mouth once daily.Active atorvastatin (Lipitor) 40 mg tablet Take 1 tablet (40 mg) by mouth once daily at bedtime.Active ticagrelor (Brilinta) 90 mg tablet Take 1 tablet (90 mg) by mouth 2 times a day.Active gabapentin (Neurontin) 100 mg capsule Take 1 capsule (100 mg) by mouth 3 times a day.Active insulin glargine (Lantus U-100 Insulin) 100 unit/mL injection Inject 15 Units under the skin once daily at bedtime.Active magnesium hydroxide (Milk of Magnesia) 400 mg/5 mL suspension Take 5 mL by mouth once daily as needed for constipation.Active magnesium oxide (Mag-Ox) 400 mg tablet Take 1 tablet (400 mg) by mouth once daily.Active melatonin (Melatin) 3 mg tablet Take 2 tablets (6 mg) by mouth once daily at bedtime.Active metoprolol succinate XL (Toprol-XL) 50 mg 24 hr tablet Take 1 tablet (50 mg) by mouth once daily.Active pantoprazole (ProtoNix) 40 mg EC tablet Take 1 tablet (40 mg) by mouth once daily in the morning. Take before meals. Active polyethylene glycol (Glycolax, Miralax) 17 gram packet Take 17 g by mouth once daily.Active sennosides (Senokot) 8.6 mg tablet Take 2 tablets (17.2 mg) by mouth once daily.Active sennosides-docusate sodium (Marilin-Colace) 8.6-50 mg tablet Take 1 tablet by mouth once daily at bedtime.Active tamsulosin (Flomax) 0.4 mg 24 hr capsule Take 1 capsule (0.4 mg) by mouth once daily at bedtime.Active traZODone (Desyrel) 50 mg tablet Take 0.5 tablets (25 mg) by mouth once daily at bedtime.Active nicotine (Nicoderm CQ) 21 mg/24 hr patch Indications:Tobacco usePlace 1 patch over 24 hours on the skin once daily for 38 doses.4Active Additional Information Patient not taking.Reported on 11/02/2024 nicotine (Nicoderm CQ) 14 mg/24 hr patch Indications:Tobacco usePlace 1 patch over 24 hours on the skin once daily for 14 doses. Do not fill before November 13, 2024.5Active Additional Information Patient not taking.Reported on 11/02/2024 nicotine (Nicoderm CQ) 7 mg/24 hr patch Indications:Tobacco usePlace 1 patch over 24 hours on the skin once daily for 14 doses. Do not fill before November 27, 2024.5Active Additional Information Patient not taking.Reported on 11/02/2024 linaCLOtide (Linzess) 145 mcg capsule Indications:Constipation, unspecified constipation typeTake 1 capsule (145 mcg) by mouth once daily in the morning. Take before meals. Do not crush or chew. 30 capsule 11011/28/2024 4:47 PM EST6Active Active Problems ProblemNoted DateDiagnosed PkrdMjafcdprj26/07/2812Zqtuwausgpul84/07/2024hronic indwelling Cyr znruijox91/07/3891Juqeqaoajfnm40/07/2024 Family History Medical HistoryRelationNameCommentsBrain cancerFatherStrokeMaternal Grandmother CancerMotherCancerSisterRelationNameStatusCommentsFatherMaternal Grandmother MotherSister Social History Tobacco UseTypesPacks/DayYears UsedDateSmoking Tobacco: Every DayCigarettes0.567 Started: 1958Passive Smoke Exposure: PastSmokeless Tobacco: Never Tobacco Cessation:Ready to Q uit: No; Counseling Given: No Alcohol UseStandard Drinks/WeekCommentsNot Currently0 (1 standard drink = 0.6 oz pure alcohol)[facility] UtilitiesAnswerDate RecordedIn the past 12 months has the [employer], [employer], oil, or water [employer] threatened to shut off services in your home?Patient ppkiwgyc82/07/2024Humiliation, Afraid, Rape, and Kick questionnaire AnswerDate RecordedWithin the last year, have you been afraid of your partner or ex-partner?No10/02/2024Within the last year, have you been humiliated or emotionally abused in other ways by your partner or ex-partner?No10/02/2024 Within the last year, have you been kicked, hit, slapped, or otherwise physically hurt by your partner or ex-partner?No10/02/2024Within the last year, have you been raped or forced to have any kind of sexual activity by your part ner or ex-partner?No10/02/2024Social Connection and Isolation PanelAnswerDate RecordedIn a typical week, how many times do you talk on the phone with family, friends, or neighbors?Patient nofycjpd93/07/2024How often do you get together with friends or relatives?Patient hpzhidey37/07/2024How often do you attend baptism or confucianist services?Patient jdwybosp85/07/2024o you belong to any clubs or organizations such as baptism groups, unions, fraternal or athletic real ups, or school groups?Patient mtilvsrs78/07/2024ttends Club or Organization MeetingsNot on file10/02/2024Marital StatusNot on file10/02/2024UDIT-CAnswer Date RecordedQ1: How often do you have a drink containing alcohol?Never 10/02/2024Q2: How many drinks containing alcohol do you have on a typical day when you are drinking?Patient does not drink10/02/2024Q3: How often do you have six or more drinks on one occasion?Never10/02/2024Overall Financial Resource Strain (CARDIA)AnswerDate RecordedHow hard is it for you to pay for the very basics like food, housing, medical care, and heating?Not hard at all10/05/2024 PHQ-2AnswerDate RecordedPatient Health Questionnaire-2 Phikx49812/03/2023[facility] [place] [facility] Occup[facility] - Occupational Stress QuestionnaireAnswerDate RecordedDo you feel stress - tense, restless, nervous, or anxious, or unable to sleep at night because yourmind is troubled all the time - these days?Patient ophkblxz86/07/2024Exercise Vital SignAnswerDate RecordedOn average, how many days per week do you engage in moderate to strenuous exercise (like a brisk wal k)?Patient agllheoy16/07/2024Minutes of Exercise per SessionNot on file 10/02/2024Hunger Vital SignAnswerDate RecordedWithin the past 12 months, you worried that your food would run out before you got the money to buymore.Patient krgbtuuq99/07/2024Within the past 12 months, the food you bought just didn't last and you didn't have money to get more.Patient dxcnmirh98/07/2024RAPARE - TransportationAnswerDate RecordedIn the past 12 months, has lack of transportation kept you from medical appointments or from getting medications?No 10/05/2024In the past 12 months, has lack of transportation kept you from meetings, work, or from getting things needed for daily living?No10/05/2024 Housing Stability Vital SignAnswerDate RecordedIn the last 12 months, was there a time when you were not able to pay the mortgage or rent on time?No10/05/2024In the past 12 months, how many times have you moved where you were living?0 10/05/2024t any time in the past 12 months, were you homeless or living in a group home (including now)?No10/05/2024Sex and Gender InformationValueDate Recorded Sex Assigned at BirthNot on fileLegal GrcVstq83/26/2022 7:05 AM ESTGender IdentityNot on fileSexual OrientationNot on file Last Filed Vital Signs Vital SignReadingTime TakenCommentsBlood Cmbpslst77/52011/02/2024 9:30 AM EST Owkpe0054 9:30 AM EFLHhauxuomwpr01 ??C (98.6 ??F)10/06/2024 12:00 AM EST Respiratory Vmle415212/07/2023 12:00 AM ESTOxygen Zloeazshfl28%10/06/2024 12:00 AM ESTInhaled Oxygen Concentration--Dcbjcs39.8 kg (182 lb 8.7 oz)10/05/2024 6:00 AM EVJDynwuz219.8 cm (5' 10 )10/02/2024 5:24 AM ESTBody Mass Index26.19112/03/2023 5:24 AM EST Plan of Treatment Health MaintenanceDue DateLast DoneCommentsCT Xbydbgxkhqdv1953FIT-DNA (Cologuard)1953FIT1953Lipid Panel1953Medicare Annual Wellness Visit (AWV)08/17/19536721Xbglvmpkoyglx1953MMR Vaccines (1 of 1 - Standard series)1954Hepatitis C Kyqyrjrdn69/22/1971Pneumococcal Vaccine (1 of 2 - PCV)1972DTaP/Tdap/Td Vaccines (1 - Tdap)1975Lung Cancer Screening 2003Zoster Vaccines (1 of 2)2003Abdominal Aortic Aneurysm (AAA) Vrwqqgrfc05/22/2018COVID-19 Vaccine (1 - season)2025Influenza Vaccine (#1)/09/2018RSV High Risk: (Elderly (60+) or Population) (1 - 1-dose 75+ series)08/17/20282837Ckmajwwaaqw44, 04/19/2024olorectal Cancer Wvlavounh66/24/2034HIB VaccinesAged OutNo longer eligible based on patient's age to complete this topicHPV VaccinesAged OutNo longer eligible based on patient's age to complete this topicHepatitis A VaccinesAged OutNo longer eligible based on patient's age to complete this topic Hepatitis B VaccinesAged OutNo longer eligible based on patient's age to complete this topicIPV VaccinesAged OutNo longer eligible based on patient's age to complete this topicMeningococcal VaccineAged OutNo longer eligible based on patient's age to complete this topicRotavirus VaccinesAged OutNo longer eligible based on patient's age to complete this topic Insurance * Guarantor: RiveraCesar andino Francisco TypeRelation to PatientDate of PhoneBilling AddressPersonal/OpyljhKbeg[address] [phone] * Guarantor: Cesar Rivera TypeRelation to PatientDate of PhoneBilling AddressPersonal/FnxrrgAcah[address] [place] [phone] Advance Directives For more information, please contact: [phone] (Available ) * DNR and No Intubation (Latest Code Status on File) Date ActivatedDate RixqlskrvqjUimkwbbk99/7/2024 6:07 AMQuestionAnswerComments Plan of Care:* Code Status Discussion Completed Decision Maker:* Patient
--- OUTSIDE RECORDS SUMMARY | 2025-10-20 13:43 | XMS_ITS | Clinical Summary ---
Author Organization [facility] Address [address] [place] [address] Care Team Providers Care Repairer Wood Furniture Name Role Phone Vinnie Garza DO Primary Care Provider [phone] Allergies No known active allergies Medications MedicationSigDispense QuantityRefillsLast FilledStart DateEnd DateStatus acetaminophen (Tylenol) 500 mg tablet Take 1,000 mg by mouth every 8 (eight) hours if needed.Active aspirin 81 mg EC tablet Take 81 mg by mouth in the morning.10/30/2023ctive atorvastatin (Lipitor) 40 mg tablet Take 40 mg by mouth in the morning.10/29/2023ctive gabapentin (Neurontin) 100 mg capsule Take 100 mg by mouth 3 times a day.04/21/2024ctive Lantus Solostar U-100 Insulin 100 unit/mL (3 mL) injection pen ADMINISTER 15 UNITS UNDER THE SKIN AT BEDTIMEActive magnesium hydroxide (Milk of Magnesia) 400 mg/5 mL suspension Take 30 mL by mouth.Active pantoprazole (ProtoNix) 40 mg EC tablet 08/20/2024ctive sennosides-docusate sodium (Marilin-Colace) 8.6-50 mg tablet Take 1 tablet by mouth in the morning.Active tamsulosin (Flomax) 0.4 mg 24 hr capsule 0.4 mg in the morning.08/30/2024ctive traZODone (Desyrel) 50 mg tablet Take 75 mg by mouth in the morning.Active ticagrelor (Brilinta) 90 mg tablet Take 90 mg by mouth two times daily.Active metoprolol succinate XL (Toprol-XL) 50 mg 24 hr tablet Indications:PalpitationsTake 1 tablet (50 mg) by mouth in the morning. Do not crush or chew. 90 tablet ctive insulin lispro (Admelog SoloStar U-100 Insulin) 100 unit/mL injection pen 3 mL, 0 Refill(s), Refills(s) ctive finasteride (Proscar) 5 mg tablet Take 5 mg by mouth in the morning.10/25/2024ctive lamoTRIgine (LaMICtal) 25 mg tablet Take 25 mg by mouth in the morning.11/04/2024tive buPROPion XL (Wellbutrin XL) 150 mg 24 hr tablet 01/19/2025tive folic acid (Folvite) 1 mg tablet Take by mouth in the morning.01/08/2025tive hydrOXYzine HCL (Atarax) 25 mg tablet Take 25 mg by mouth every 6 (six) hours if needed.Active iron polysaccharides (Ferrex 150) 150 mg iron capsule Take by mouth in the morning.01/08/2025tive melatonin 3 mg tablet Take 6 mg by mouth.Active loperamide (Imodium A-D) 2 mg tablet Take 2 mg by mouth if needed in the morning, at noon, in the evening, and at bedtime for diarrhea.Active metoprolol tartrate (Lopressor) 50 mg tablet Take 50 mg by mouth once daily as directed.Active Active Problems ProblemNoted DateDiagnosed BxtqCqolhwzaajiebe62/12/2025PH with urinary irhguinugjh10/12/2025erebral mzhnadryqwmhild31/12/2025hronic kidney disease 12/08/2024omplex renal cyst12/08/2024Gross hysrmjmky73/12/2025History of UTI 12/08/2024Syncope and fydikkbr72/30/2025holesterolosis of sixvduayptt82/20/2025 2019-nCoV acute respiratory enuhzeb2511/10/2024hronic indwelling Cyr catheter 10/02/20243066Cypyfrcdpxgi83/07/7629Vrppqbiih03/07/2024Essential hypertension 09/29/2024SAH (subarachnoid hemorrhage)06/05/2024Traumatic cerebral edema with unknown loss of consciousness gqdkhz3706/05/2024Other hypertrophic cardiomyopathy 06/01/2024Ventricular pxrkeweikwl66/06/8914Islloeliibvd14/02/2024Other visual nrmrgjtvpehp27/02/2024Unsteadiness on feet05/28/2024Hx of completed stroke 05/27/20243023Ejpitqiy64/01/2024cute ischemic obdrne7104/11/20247342Mdiwec70/15/2024 Cerebrovascular accident (CVA) due to occlusion of right middle cerebral artery 04/10/2024cute renal failure with acute renal cortical necrosis superimposed on stage 3a chronic kidney xzwqumo7504/09/2024Stroke-like xdrovxdo77/14/2024rthritis of right knee12/30/2023Gait ndkkhgzizmi66/15/2024Sequelae, post-bsofog4212/11/2023 Blurred bdzzkt3910/28/2023Mixed hvdroericjcfrz63/02/2024Type 2 diabetes mellitus 10/28/2023Type 2 diabetes mellitus with hyperglycemia, with long-term current use of qpegtoz0110/28/2023MS (altered mental status)10/26/2023 Family History Medical HistoryRelationNameCommentsNo Known ProblemsFatherNo Known Problems MotherHeart attackPaternal GrandmotherRelationNameStatusCommentsFatherMother Paternal Grandmother Social History Tobacco UseTypesPacks/DayYears UsedDateSmoking Tobacco: Every DayCigarettes Smokeless Tobacco: NeverAlcohol UseStandard Drinks/WeekCommentsNever0 (1 standard drink = 0.6 oz pure alcohol)UT Safety & EnvironmentAnswerDate Recorded Fear of Current or Ex-PartnerNot on file04/15/2024Emotionally AbusedNot on file 04/15/2024hysically AbusedNot on file04/15/2024Sexually AbusedNot on file 04/15/2024hysically or Sexually AbusedNot on file04/15/2024Sex and Gender InformationValueDate RecordedSex Assigned at BirthNot on fileLegal SexMale 04/15/2024 12:05 AM EDTGender IdentityNot on fileSexual OrientationNot on file Last Filed Vital Signs Vital SignReadingTime TakenCommentsBlood Tlldwufv342/6803 11:05 AM EDT Jrlmo5056 11:05 AM EDTTemperature--Respiratory Rate--Oxygen Saturation 96%01/21/2025 11:05 AM EDTInhaled Oxygen Concentration--Ahxfww52.2 kg (190 lb) 01/21/2025 11:05 AM QRVBdefhm243.8 cm (5' 10 )01/21/2025 11:05 AM EDTBody Mass Index27.26001/21/2025 11:05 AM EDT Plan of Treatment Health MaintenanceDue DateLast DoneCommentsCT Fnbheckvrfye1953iabetes: Hemoglobin A1C1953FIT-DNA1953FIT1953FOBT1953Medicare Annual Wellness (AWV)08/17/19537775Kcbxgvztamkzl1953Diabetes: Retinopathy Cffiwffwv16/22/1963Depression Hppnddyhf19/22/1965Diabetes: Urine Protein Avajecfen45/22/1972Pneumococcal Vaccine: 50+ Years (1 of 2 - PCV)1972Adult Ozxbyzi9208/17/1975Zoster Vaccines (1 of 2)2003Fall Risk Zqsvckgmf79/22/2018 COVID-19 Vaccine (1 - season)2025Influenza Vaccine (#1)2025 07/08/20186519Njiwdgfbucs12olorectal Cancer Vtrgxzduo71/24/2034 HIB VaccinesAged OutNo longer eligible based on patient's age to complete this topicHPV VaccinesAged OutNo longer eligible based on patient's age to complete this topicIPV VaccinesAged OutNo longer eligible based on patient's age to complete this topicMeningococcal B VaccineAged OutNo longer eligible based on patient's age to complete this topicMeningococcal VaccineAged OutNo longer eligible based on patient's age to complete this topicRotavirus VaccinesAged Out No longer eligible based on patient's age to complete this topic Insurance Care Teams Team MemberRelationshipSpecialtyStart DateEnd Date Vinnie Garza DO [address] [place] [id number] PCP - GeneralInternal Hpahejwa46/14/24
--- OUTSIDE RECORDS SUMMARY | 2025-10-20 13:44 | XMS_ITS | Clinical Summary ---
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 Name Role Phone Unavailable Primary Care Provider Unavailabl e Allergies No known active allergies Social History Tobacco UseTypesPacks/DayYears UsedDateSmoking Tobacco: Never AssessedSex and Gender InformationValueDate RecordedSex Assigned at BirthNot on fileLegal Sex Male09/27/2012 9:28 AM ESTGender IdentityNot on fileSexual OrientationNot on file Last Filed Vital Signs Vital SignReadingTime TakenCommentsBlood Pressure--Pulse--Temperature-- Respiratory Rate--Oxygen Saturation--Inhaled Oxygen Concentration--Tvqnth41.2 kg (190 lb)12/28/2024 8:28 AM EDNGgxrhk425.8 cm (5' 10 )12/28/2024 8:28 AM ESTBody Mass Index27.2603 8:28 AM EST Plan of Treatment Health MaintenanceDue DateLast DoneCommentsAnxiety Gxamrsyxq20/22/1971Depression Xrcdauwgw36/22/1971Hepatitis C Zjggjphkd28/22/1971DTaP,Tdap,Td Vaccine (1 - Tdap)1972CT Sfkqkgbdttne45/22/1998Cologuard (FIT-DNA)1998Colonoscopy 1998Colorectal Cancer Wdamtpuxt01/22/1998Fecal Occult Blood1998 Vglgggpbmttqc01/22/1998Pneumococcal Vaccine: 50+ (1 of 1 - PCV)2003 Shingrix Vaccine (1 of 2)2003Advance Directive Dtfylnlxxd83/01/2025Covid- 19 Vaccine (1 - 2024- season)2025Influenza Vaccine (#1)2025 07/08/2018Diabetes Tynlnijaq96/07/2024, 10/05/2024, 10/04/2024, Additional history existsRSV Vaccine (1 - 1-dose 75+ series)2028Lipid Ffvzwpdmo35/, 10/28/2023 Insurance [facility] Address: [address] [address] [place] [address]
--- OUTSIDE RECORDS SUMMARY | 2025-10-20 13:44 | XMS_ITS | Continuity of Care Document ---
Author Organization [facility] Address [address] [place], [place] [address] Insurance Providers Payer Plan Claims Address Claims Phone Policy Number Group Number Relation Employer Guarantor Name Guarantor Guarantor Address Guarantor Phone [employer] MED[address]ARE[address], [place] [address]ith:[phone] Cesar Rivera [place], [place] [address]MEDICAREMEDICARE - [place] - [id number], [place], [place] [address]seq:[id number] Cesar Rivera Kelly [place], [place] [address]MedicareMedicare AetnaPO [address], [place] [address]kjn:[phone] William Itnqbdjsz08/[id number] [place] [address] Problems Condition ICD9 code ICD10 code SNOMED code Start Date End Date S oscar COVID-19 U07.101/5ActiveCholesterolosis of wqlkmduleqrI04.401/5ActiveCerebral infarction, knmujosirneX66.9006/05/2024ctiveCerebral infarction due to unspecified occlusion or stenosis of right middle cerebral fwcqyxH43.511 05/28/2024ctiveUnspecified sequelae of cerebral sisnljgkwkV02.30005/28/2024 ActiveAnemia, fdblnkkwhonU99.9084ActiveOther visual ivqbiyvwvjmoT14.8 05/28/2024ctiveUnsteadiness on feetR26.8108ctiveAltered mental status, ojvbwprtyaeN11.82085835SpfiviLmridxuqS41.1084ActivePersonal history of transient ischemic attack (TIA), and cerebral infarction without residual fpkgtwuiM63.7308ctiveUnilateral primary osteoarthritis, right knee M17.1108ctiveNontraumatic subarachnoid hemorrhage, tdntchsiijqF60.9 084ActiveAcute kidney failure, egafgvzjfotN93.9084ActiveSyncope and vzyefswzP3003/30/2025ActiveOther hypertrophic bobsasailxtthmC85. ActiveVentricular tachycardia, urgpfggdbncZ85.4ActiveInfection and inflammatory reaction due to indwelling urethral catheter, subsequent encounter T83.511D5ActiveUrinary tract infection, site not crnanjvhqN69.0 5ActiveOther generalized epilepsy and epileptic syndromes, not intractable, without status pigdouqystbJ76.57559tiveNutritional deficiency, wmiufxmwvnrO32.907tiveEncephalopathy, mijxzbzftnbC05.40 5ActivePost traumatic aogbpaykW27.1075ActiveOther srupqefiF45.89 04/27/2025tiveEssential (primary) lnwscjrkjolgB16785ActiveNeuromuscular dysfunction of bladder, ocpaptbbhpfO07.9095ActiveEncounter for ljbihiildqtdY41525ActiveType 2 diabetes mellitus with moderate nonproliferative diabetic retinopathy without macular edema,imnchpccyL47.3393 06/30/2025tiveGross sjbnavpcuO87.0125Active Results Test Result Date/Time Value / Unit Interp. Refere nce Range Blood chemistry[[id number]] Glucose [Mass/volume] in Serum or Plasma [2345-7] 10/20/2025 03:17 PM 173 mg/dL N Blood chemistry[[id number]]?Glucose [Mass/volume] in Serum or Plasma [2345-7]10/19/2025 03:40 PM133 mg/dLNBlood chemistry[[id number]]?Glucose [Mass/volume] in Serum or Plasma [2345-7]10/19/2025 03:25 PM112 mg/dLNBlood chemistry[[id number]]?Glucose [Mass/volume] in Serum or Plasma [2345-7] 10/18/2025 03:08 PM134 mg/dLNBlood chemistry[[id number]]?Glucose [Mass/volume] in Serum or Plasma [2345-7]10/18/2025 03:00 PM227 mg/dLNBlood chemistry[[id number]]?Glucose [Mass/volume] in Serum or Plasma [2345-7] 10/18/2025 09:43 AM168 mg/dLNBlood chemistry[[id number]]?Glucose [Mass/volume] in Serum or Plasma [2345-7]10/17/2025 09:05 AM149 mg/dLNBlood chemistry[[id number]]?Glucose [Mass/volume] in Serum or Plasma [2345-7] 10/17/2025 05:00 PM178 mg/dLNBlood chemistry[[id number]]?Glucose [Mass/volume] in Serum or Plasma [2345-7]10/16/2025 02:31 PM163 mg/dLNBlood chemistry[[id number]]?Glucose [Mass/volume] in Serum or Plasma [2345-7] 10/16/2025 08:40 AM175 mg/dLNBlood chemistry[[id number]]?Glucose [Mass/volume] in Serum or Plasma [2345-7]10/16/2025 03:15 PM193 mg/dLNBlood chemistry[[id number]]?Glucose [Mass/volume] in Serum or Plasma [2345-7] 10/15/2025 02:46 PM223 mg/dLNBlood chemistry[[id number]]?Glucose [Mass/volume] in Serum or Plasma [2345-7]10/15/2025 09:24 AM160 mg/dLNBlood chemistry[[id number]]?Glucose [Mass/volume] in Serum or Plasma [2345-7] 10/15/2025 03:01 PM185 mg/dLNBlood chemistry[[id number]]?Glucose [Mass/volume] in Serum or Plasma [2345-7]10/14/2025 01:45 PM172 mg/dLNBlood chemistry[[id number]]?Glucose [Mass/volume] in Serum or Plasma [2345-7] 10/14/2025 09:17 AM175 mg/dLNBlood chemistry[[id number]]?Glucose [Mass/volume] in Serum or Plasma [2345-7]10/14/2025 02:55 PM235 mg/dLNBlood chemistry[[id number]]?Glucose [Mass/volume] in Serum or Plasma [2345-7] 10/13/2025 03:31 PM123 mg/dLNBlood chemistry[[id number]]?Glucose [Mass/volume] in Serum or Plasma [2345-7]10/13/2025 09:22 AM167 mg/dLNBlood chemistry[[id number]]?Glucose [Mass/volume] in Serum or Plasma [2345-7] 10/13/2025 02:53 PM230 mg/dLNBlood chemistry[[id number]]?Glucose [Mass/volume] in Serum or Plasma [2345-7]10/12/2025 02:02 PM215 mg/dLNBlood chemistry[[id number]]?Glucose [Mass/volume] in Serum or Plasma [2345-7] 10/12/2025 08:25 AM208 mg/dLNBlood chemistry[[id number]]?Glucose [Mass/volume] in Serum or Plasma [2345-7]10/12/2025 03:21 PM232 mg/dLNBlood chemistry[[id number]]?Glucose [Mass/volume] in Serum or Plasma [2345-7] 10/11/2025 02:44 PM159 mg/dLNBlood chemistry[[id number]]?Glucose [Mass/volume] in Serum or Plasma [2345-7]10/11/2025 09:16 AM259 mg/dLNBlood chemistry[[id number]]?Glucose [Mass/volume] in Serum or Plasma [2345-7] 10/11/2025 03:18 PM174 mg/dLNBlood chemistry[[id number]]?Glucose [Mass/volume] in Serum or Plasma [2345-7]10/10/2025 02:40 PM147 mg/dLNBlood chemistry[[id number]]?Glucose [Mass/volume] in Serum or Plasma [2345-7] 10/10/2025 08:50 AM94 mg/dLNBlood chemistry[[id number]]?Glucose [Mass/volume] in Serum or Plasma [2345-7]10/10/2025 03:01 PM145 mg/dLNBlood chemistry[[id number]]?Glucose [Mass/volume] in Serum or Plasma [2345-7] 10/09/2025 03:23 PM226 mg/dLNBlood chemistry[[id number]]?Glucose [Mass/volume] in Serum or Plasma [2345-7]10/09/2025 10:40 AM157 mg/dLNBlood chemistry[[id number]]?Glucose [Mass/volume] in Serum or Plasma [2345-7] 10/09/2025 04:25 PM202 mg/dLNBlood chemistry[[id number]]?Glucose [Mass/volume] in Serum or Plasma [2345-7]10/08/2025 02:27 PM122 mg/dLNBlood chemistry[[id number]]?Glucose [Mass/volume] in Serum or Plasma [2345-7] 10/08/2025 08:59 AM184 mg/dLNBlood chemistry[[id number]]?Glucose [Mass/volume] in Serum or Plasma [2345-7]10/08/2025 04:59 PM256 mg/dLNBlood chemistry[[id number]]?Glucose [Mass/volume] in Serum or Plasma [2345-7] 10/07/2025 04:31 PM172 mg/dLNBlood chemistry[[id number]]?Glucose [Mass/volume] in Serum or Plasma [2345-7]10/07/2025 08:24 AM294 mg/dLNBlood chemistry[[id number]]?Glucose [Mass/volume] in Serum or Plasma [2345-7] 10/07/2025 03:09 PM211 mg/dLNBlood chemistry[[id number]]?Glucose [Mass/volume] in Serum or Plasma [2345-7]10/06/2025 02:02 PM174 mg/dLNBlood chemistry[[id number]]?Glucose [Mass/volume] in Serum or Plasma [2345-7] 10/06/2025 10:13 AM162 mg/dLNBlood chemistry[[id number]]?Glucose [Mass/volume] in Serum or Plasma [2345-7]10/06/2025 03:50 PM163 mg/dLNBlood chemistry[[id number]]?Glucose [Mass/volume] in Serum or Plasma [2345-7] 10/05/2025 01:49 PM296 mg/dLNBlood chemistry[[id number]]?Glucose [Mass/volume] in Serum or Plasma [2345-7]10/05/2025 09:10 AM126 mg/dLNBlood chemistry[[id number]]?Glucose [Mass/volume] in Serum or Plasma [2345-7] 10/05/2025 03:25 PM261 mg/dLNBlood chemistry[[id number]]?Glucose [Mass/volume] in Serum or Plasma [2345-7]10/04/2025 02:55 PM363 mg/dLNBlood chemistry[[id number]]?Glucose [Mass/volume] in Serum or Plasma [2345-7] 10/04/2025 08:02 AM249 mg/dLNBlood chemistry[[id number]]?Glucose [Mass/volume] in Serum or Plasma [2345-7]10/04/2025 03:10 PM197 mg/dLNBlood chemistry[[id number]]?Glucose [Mass/volume] in Serum or Plasma [2345-7] 10/03/2025 03:49 PM222 mg/dLNBlood chemistry[[id number]]?Glucose [Mass/volume] in Serum or Plasma [2345-7]10/03/2025 08:22 AM286 mg/dLNBlood chemistry[[id number]]?Glucose [Mass/volume] in Serum or Plasma [2345-7] 10/03/2025 04:23 PM203 mg/dLNBlood chemistry[[id number]]?Glucose [Mass/volume] in Serum or Plasma [2345-7]10/02/2025 02:47 PM286 mg/dLNBlood chemistry[[id number]]?Glucose [Mass/volume] in Serum or Plasma [2345-7] 10/02/2025 09:33 AM222 mg/dLNBlood chemistry[[id number]]?Glucose [Mass/volume] in Serum or Plasma [2345-7]10/02/2025 03:13 PM165 mg/dLNBlood chemistry[[id number]]?Glucose [Mass/volume] in Serum or Plasma [2345-7] 10/01/2025 02:38 PM223 mg/dLNBlood chemistry[[id number]]?Glucose [Mass/volume] in Serum or Plasma [2345-7]10/01/2025 09:18 AM134 mg/dLNBlood chemistry[[id number]]?Glucose [Mass/volume] in Serum or Plasma [2345-7] 10/01/2025 03:40 PM202 mg/dLNBlood chemistry[[id number]]?Glucose [Mass/volume] in Serum or Plasma [2345-7]09/30/2025 03:39 PM168 mg/dLNBlood chemistry[[id number]]?Glucose [Mass/volume] in Serum or Plasma [2345-7] 09/30/2025 09:16 AM146 mg/dLNBlood chemistry[[id number]]?Glucose [Mass/volume] in Serum or Plasma [2345-7]09/30/2025 04:36 PM202 mg/dLNBlood chemistry[[id number]]?Glucose [Mass/volume] in Serum or Plasma [2345-7] 09/29/2025 03:05 PM176 mg/dLNBlood chemistry[[id number]]?Glucose [Mass/volume] in Serum or Plasma [2345-7]09/29/2025 09:54 AM133 mg/dLNBlood chemistry[[id number]]?Glucose [Mass/volume] in Serum or Plasma [2345-7] 09/29/2025 05:01 PM183 mg/dLNBlood chemistry[[id number]]?Glucose [Mass/volume] in Serum or Plasma [2345-7]09/28/2025 03:57 PM223 mg/dLNBlood chemistry[[id number]]?Glucose [Mass/volume] in Serum or Plasma [2345-7] 09/28/2025 09:28 AM193 mg/dLNBlood chemistry[[id number]]?Glucose [Mass/volume] in Serum or Plasma [2345-7]09/28/2025 03:37 PM126 mg/dLNBlood chemistry[[id number]]?Glucose [Mass/volume] in Serum or Plasma [2345-7] 09/27/2025 02:59 PM203 mg/dLNBlood chemistry[[id number]]?Glucose [Mass/volume] in Serum or Plasma [2345-7]09/27/2025 09:07 AM194 mg/dLNBlood chemistry[[id number]]?Glucose [Mass/volume] in Serum or Plasma [2345-7] 09/27/2025 05:03 PM173 mg/dLNBlood chemistry[[id number]]?Glucose [Mass/volume] in Serum or Plasma [2345-7]09/26/2025 02:49 PM241 mg/dLNBlood chemistry[[id number]]?Glucose [Mass/volume] in Serum or Plasma [2345-7] 09/26/2025 09:20 AM223 mg/dLNBlood chemistry[[id number]]?Glucose [Mass/volume] in Serum or Plasma [2345-7]09/26/2025 04:11 PM144 mg/dLNBlood chemistry[[id number]]?Glucose [Mass/volume] in Serum or Plasma [2345-7] 09/25/2025 03:41 PM187 mg/dLNBlood chemistry[[id number]]?Glucose [Mass/volume] in Serum or Plasma [2345-7]09/25/2025 09:34 AM344 mg/dLNBlood chemistry[[id number]]?Glucose [Mass/volume] in Serum or Plasma [2345-7] 09/25/2025 03:02 PM224 mg/dLNBlood chemistry[[id number]]?Glucose [Mass/volume] in Serum or Plasma [2345-7]09/24/2025 03:07 PM134 mg/dLNBlood chemistry[[id number]]?Glucose [Mass/volume] in Serum or Plasma [2345-7] 09/24/2025 09:30 AM203 mg/dLNBlood chemistry[[id number]]?Glucose [Mass/volume] in Serum or Plasma [2345-7]09/24/2025 03:44 PM174 mg/dLNBlood chemistry[[id number]]?Glucose [Mass/volume] in Serum or Plasma [2345-7] 09/23/2025 02:17 PM218 mg/dLNBlood chemistry[[id number]]?Glucose [Mass/volume] in Serum or Plasma [2345-7]09/23/2025 10:38 AM209 mg/dLNBlood chemistry[[id number]]?Glucose [Mass/volume] in Serum or Plasma [2345-7] 09/23/2025 03:33 PM189 mg/dLNBlood chemistry[[id number]]?Glucose [Mass/volume] in Serum or Plasma [2345-7]09/22/2025 03:51 PM234 mg/dLNBlood chemistry[[id number]]?Glucose [Mass/volume] in Serum or Plasma [2345-7] 09/22/2025 09:00 AM224 mg/dLNBlood chemistry[[id number]]?Glucose [Mass/volume] in Serum or Plasma [2345-7]09/22/2025 04:50 PM150 mg/dLNBlood chemistry[[id number]]?Glucose [Mass/volume] in Serum or Plasma [2345-7] 09/21/2025 04:39 PM394 mg/dLNBlood chemistry[[id number]]?Glucose [Mass/volume] in Serum or Plasma [2345-7]09/21/2025 08:12 AM256 mg/dLNBlood chemistry[[id number]]?Glucose [Mass/volume] in Serum or Plasma [2345-7] 09/21/2025 03:16 PM152 mg/dLNBlood chemistry[[id number]]?Glucose [Mass/volume] in Serum or Plasma [2345-7]09/20/2025 04:49 PM185 mg/dLNBlood chemistry[[id number]]?Glucose [Mass/volume] in Serum or Plasma [2345-7] 09/20/2025 10:30 AM159 mg/dLNBlood chemistry[[id number]]?Glucose [Mass/volume] in Serum or Plasma [2345-7]09/20/2025 03:01 PM168 mg/dLNBlood chemistry[[id number]]?Glucose [Mass/volume] in Serum or Plasma [2345-7] 09/19/2025 01:30 PM179 mg/dLNBlood chemistry[[id number]]?Glucose [Mass/volume] in Serum or Plasma [2345-7]09/19/2025 09:24 AM178 mg/dLNBlood chemistry[[id number]]?Glucose [Mass/volume] in Serum or Plasma [2345-7] 09/19/2025 03:28 PM125 mg/dLNBlood chemistry[[id number]]?Glucose [Mass/volume] in Serum or Plasma [2345-7]09/18/2025 03:13 PM123 mg/dLNBlood chemistry[[id number]]?Glucose [Mass/volume] in Serum or Plasma [2345-7] 09/18/2025 03:31 PM143 mg/dLNBlood chemistry[[id number]]?Glucose [Mass/volume] in Serum or Plasma [2345-7]09/18/2025 09:16 AM153 mg/dLNBlood chemistry[[id number]]?Glucose [Mass/volume] in Serum or Plasma [2345-7] 09/17/2025 02:26 PM296 mg/dLNBlood chemistry[[id number]]?Glucose [Mass/volume] in Serum or Plasma [2345-7]09/17/2025 09:15 AM140 mg/dLNBlood chemistry[[id number]]?Glucose [Mass/volume] in Serum or Plasma [2345-7] 09/17/2025 03:24 PM216 mg/dLNBlood chemistry[[id number]]?Glucose [Mass/volume] in Serum or Plasma [2345-7]09/16/2025 01:50 PM156 mg/dLNBlood chemistry[[id number]]?Glucose [Mass/volume] in Serum or Plasma [2345-7] 09/16/2025 09:11 AM211 mg/dLNBlood chemistry[[id number]]?Glucose [Mass/volume] in Serum or Plasma [2345-7]09/16/2025 03:09 PM143 mg/dLNBlood chemistry[[id number]]?Glucose [Mass/volume] in Serum or Plasma [2345-7] 09/15/2025 03:10 PM164 mg/dLNBlood chemistry[[id number]]?Glucose [Mass/volume] in Serum or Plasma [2345-7]09/15/2025 10:11 AM203 mg/dLNBlood chemistry[[id number]]?Glucose [Mass/volume] in Serum or Plasma [2345-7] 09/15/2025 03:04 PM224 mg/dLNBlood chemistry[[id number]]?Glucose [Mass/volume] in Serum or Plasma [2345-7]09/14/2025 01:37 PM281 mg/dLNBlood chemistry[[id number]]?Glucose [Mass/volume] in Serum or Plasma [2345-7] 09/14/2025 09:12 AM150 mg/dLNBlood chemistry[[id number]]?Glucose [Mass/volume] in Serum or Plasma [2345-7]09/14/2025 03:39 PM175 mg/dLNBlood chemistry[[id number]]?Glucose [Mass/volume] in Serum or Plasma [2345-7] 09/13/2025 01:41 PM265 mg/dLNBlood chemistry[[id number]]?Glucose [Mass/volume] in Serum or Plasma [2345-7]09/13/2025 09:20 AM325 mg/dLNBlood chemistry[[id number]]?Glucose [Mass/volume] in Serum or Plasma [2345-7] 09/13/2025 03:51 PM202 mg/dLNBlood chemistry[[id number]]?Glucose [Mass/volume] in Serum or Plasma [2345-7]09/12/2025 03:34 PM160 mg/dLNBlood chemistry[[id number]]?Glucose [Mass/volume] in Serum or Plasma [2345-7] 09/12/2025 09:22 AM268 mg/dLNBlood chemistry[[id number]]?Glucose [Mass/volume] in Serum or Plasma [2345-7]09/12/2025 03:26 PM205 mg/dLNBlood chemistry[[id number]]?Glucose [Mass/volume] in Serum or Plasma [2345-7] 09/11/2025 09:38 AM343 mg/dLNBlood chemistry[[id number]]?Glucose [Mass/volume] in Serum or Plasma [2345-7]09/11/2025 04:17 PM144 mg/dLNBlood chemistry[[id number]]?Glucose [Mass/volume] in Serum or Plasma [2345-7] 09/10/2025 02:16 PM134 mg/dLNBlood chemistry[[id number]]?Glucose [Mass/volume] in Serum or Plasma [2345-7]09/10/2025 09:04 AM184 mg/dLNBlood chemistry[[id number]]?Glucose [Mass/volume] in Serum or Plasma [2345-7] 09/10/2025 03:49 PM214 mg/dLNBlood chemistry[[id number]]?Glucose [Mass/volume] in Serum or Plasma [2345-7]09/09/2025 02:43 PM229 mg/dLNBlood chemistry[[id number]]?Glucose [Mass/volume] in Serum or Plasma [2345-7] 09/09/2025 09:17 AM210 mg/dLNBlood chemistry[[id number]]?Glucose [Mass/volume] in Serum or Plasma [2345-7]09/09/2025 03:55 PM178 mg/dLNBlood chemistry[[id number]]?Glucose [Mass/volume] in Serum or Plasma [2345-7] 09/08/2025 02:08 PM147 mg/dLNBlood chemistry[[id number]]?Glucose [Mass/volume] in Serum or Plasma [2345-7]09/08/2025 09:35 AM268 mg/dLNBlood chemistry[[id number]]?Glucose [Mass/volume] in Serum or Plasma [2345-7] 09/08/2025 04:15 PM158 mg/dLNBlood chemistry[[id number]]?Glucose [Mass/volume] in Serum or Plasma [2345-7]09/07/2025 01:36 PM274 mg/dLNBlood chemistry[[id number]]?Glucose [Mass/volume] in Serum or Plasma [2345-7] 09/07/2025 02:50 PM222 mg/dLNBlood chemistry[[id number]]?Glucose [Mass/volume] in Serum or Plasma [2345-7]09/07/2025 09:15 AM163 mg/dLNBlood chemistry[[id number]]?Glucose [Mass/volume] in Serum or Plasma [2345-7] 09/06/2025 02:34 PM154 mg/dLNBlood chemistry[[id number]]?Glucose [Mass/volume] in Serum or Plasma [2345-7]09/06/2025 09:28 AM211 mg/dLNBlood chemistry[[id number]]?Glucose [Mass/volume] in Serum or Plasma [2345-7] 09/06/2025 02:57 PM265 mg/dLNBlood chemistry[[id number]]?Glucose [Mass/volume] in Serum or Plasma [2345-7]09/05/2025 01:20 PM327 mg/dLNBlood chemistry[[id number]]?Glucose [Mass/volume] in Serum or Plasma [2345-7] 09/05/2025 08:56 AM193 mg/dLNBlood chemistry[[id number]]?Glucose [Mass/volume] in Serum or Plasma [2345-7]09/05/2025 04:13 PM204 mg/dLNBlood chemistry[[id number]]?Glucose [Mass/volume] in Serum or Plasma [2345-7] 09/04/2025 01:17 PM187 mg/dLNBlood chemistry[[id number]]?Glucose [Mass/volume] in Serum or Plasma [2345-7]09/04/2025 09:05 AM249 mg/dLNBlood chemistry[[id number]]?Glucose [Mass/volume] in Serum or Plasma [2345-7] 09/04/2025 03:38 PM121 mg/dLNBlood chemistry[[id number]]?Glucose [Mass/volume] in Serum or Plasma [2345-7]09/03/2025 01:33 PM259 mg/dLNBlood chemistry[[id number]]?Glucose [Mass/volume] in Serum or Plasma [2345-7] 09/03/2025 09:12 AM112 mg/dLNBlood chemistry[[id number]]?Glucose [Mass/volume] in Serum or Plasma [2345-7]09/03/2025 03:13 PM232 mg/dLNBlood chemistry[[id number]]?Glucose [Mass/volume] in Serum or Plasma [2345-7] 09/02/2025 01:54 PM151 mg/dLNBlood chemistry[[id number]]?Glucose [Mass/volume] in Serum or Plasma [2345-7]09/02/2025 09:14 AM182 mg/dLNBlood chemistry[[id number]]?Glucose [Mass/volume] in Serum or Plasma [2345-7] 09/02/2025 03:00 PM233 mg/dLNBlood chemistry[[id number]]?Glucose [Mass/volume] in Serum or Plasma [2345-7]09/01/2025 03:59 PM175 mg/dLNBlood chemistry[[id number]]?Glucose [Mass/volume] in Serum or Plasma [2345-7] 09/01/2025 09:17 AM213 mg/dLNBlood chemistry[[id number]]?Glucose [Mass/volume] in Serum or Plasma [2345-7]09/01/2025 03:16 PM207 mg/dLNBlood chemistry[[id number]]?Glucose [Mass/volume] in Serum or Plasma [2345-7] 08/31/2025 01:31 PM294 mg/dLNBlood chemistry[[id number]]?Glucose [Mass/volume] in Serum or Plasma [2345-7]08/31/2025 09:02 AM253 mg/dLNBlood chemistry[[id number]]?Glucose [Mass/volume] in Serum or Plasma [2345-7] 08/31/2025 03:02 PM193 mg/dLNBlood chemistry[[id number]]?Glucose [Mass/volume] in Serum or Plasma [2345-7]08/30/2025 02:45 PM145 mg/dLNBlood chemistry[[id number]]?Glucose [Mass/volume] in Serum or Plasma [2345-7] 08/30/2025 09:17 AM216 mg/dLNBlood chemistry[[id number]]?Glucose [Mass/volume] in Serum or Plasma [2345-7]08/30/2025 03:00 PM210 mg/dLNBlood chemistry[[id number]]?Glucose [Mass/volume] in Serum or Plasma [2345-7] 08/29/2025 02:41 PM246 mg/dLNBlood chemistry[[id number]]?Glucose [Mass/volume] in Serum or Plasma [2345-7]08/29/2025 09:18 AM206 mg/dLNBlood chemistry[[id number]]?Glucose [Mass/volume] in Serum or Plasma [2345-7] 08/29/2025 03:17 PM166 mg/dLNBlood chemistry[[id number]]?Glucose [Mass/volume] in Serum or Plasma [2345-7]08/28/2025 03:53 PM183 mg/dLNBlood chemistry[[id number]]?Glucose [Mass/volume] in Serum or Plasma [2345-7] 08/28/2025 09:22 AM189 mg/dLNBlood chemistry[[id number]]?Glucose [Mass/volume] in Serum or Plasma [2345-7]08/28/2025 04:11 PM242 mg/dLNBlood chemistry[[id number]]?Glucose [Mass/volume] in Serum or Plasma [2345-7] 08/27/2025 03:40 PM144 mg/dLNBlood chemistry[[id number]]?Glucose [Mass/volume] in Serum or Plasma [2345-7]08/27/2025 08:32 AM167 mg/dLNBlood chemistry[[id number]]?Glucose [Mass/volume] in Serum or Plasma [2345-7] 08/27/2025 03:18 PM206 mg/dLNBlood chemistry[[id number]]?Glucose [Mass/volume] in Serum or Plasma [2345-7]08/26/2025 02:55 PM235 mg/dLNBlood chemistry[[id number]]?Glucose [Mass/volume] in Serum or Plasma [2345-7] 08/26/2025 01:35 PM208 mg/dLNBlood chemistry[[id number]]?Glucose [Mass/volume] in Serum or Plasma [2345-7]08/26/2025 08:43 AM245 mg/dLNBlood chemistry[[id number]]?Glucose [Mass/volume] in Serum or Plasma [2345-7] 08/25/2025 02:13 PM248 mg/dLNBlood chemistry[[id number]]?Glucose [Mass/volume] in Serum or Plasma [2345-7]08/25/2025 09:03 AM207 mg/dLNBlood chemistry[[id number]]?Glucose [Mass/volume] in Serum or Plasma [2345-7] 08/25/2025 02:10 PM211 mg/dLNBlood chemistry[[id number]]?Glucose [Mass/volume] in Serum or Plasma [2345-7]08/24/2025 01:19 PM164 mg/dLNBlood chemistry[[id number]]?Glucose [Mass/volume] in Serum or Plasma [2345-7] 08/24/2025 08:34 AM167 mg/dLNBlood chemistry[[id number]]?Glucose [Mass/volume] in Serum or Plasma [2345-7]08/24/2025 03:34 PM159 mg/dLNBlood chemistry[[id number]]?Glucose [Mass/volume] in Serum or Plasma [2345-7] 08/23/2025 01:20 PM141 mg/dLNBlood chemistry[[id number]]?Glucose [Mass/volume] in Serum or Plasma [2345-7]08/23/2025 07:50 AM175 mg/dLNBlood chemistry[[id number]]?Glucose [Mass/volume] in Serum or Plasma [2345-7] 08/23/2025 02:03 PM238 mg/dLNBlood chemistry[[id number]]?Glucose [Mass/volume] in Serum or Plasma [2345-7]08/23/2025 09:52 AM137 mg/dLNBlood chemistry[[id number]]?Glucose [Mass/volume] in Serum or Plasma [2345-7] 08/22/2025 01:05 PM184 mg/dLNBlood chemistry[[id number]]?Glucose [Mass/volume] in Serum or Plasma [2345-7]08/22/2025 08:09 AM182 mg/dLNBlood chemistry[[id number]]?Glucose [Mass/volume] in Serum or Plasma [2345-7] 08/22/2025 02:16 PM201 mg/dLNBlood chemistry[[id number]]?Glucose [Mass/volume] in Serum or Plasma [2345-7]08/22/2025 09:19 AM117 mg/dLNBlood chemistry[[id number]]?Glucose [Mass/volume] in Serum or Plasma [2345-7] 08/21/2025 02:14 PM165 mg/dLNBlood chemistry[[id number]]?Glucose [Mass/volume] in Serum or Plasma [2345-7]08/21/2025 09:55 AM194 mg/dLNBlood chemistry[[id number]]?Glucose [Mass/volume] in Serum or Plasma [2345-7] 08/21/2025 01:44 PM164 mg/dLNBlood chemistry[[id number]]?Glucose [Mass/volume] in Serum or Plasma [2345-7]08/21/2025 09:26 AM130 mg/dLNBlood chemistry[[id number]]?Glucose [Mass/volume] in Serum or Plasma [2345-7] 08/20/2025 01:41 PM192 mg/dLNBlood chemistry[[id number]]?Glucose [Mass/volume] in Serum or Plasma [2345-7]08/20/2025 07:33 AM246 mg/dLNBlood chemistry[[id number]]?Glucose [Mass/volume] in Serum or Plasma [2345-7] 08/20/2025 02:23 PM192 mg/dLNBlood chemistry[[id number]]?Glucose [Mass/volume] in Serum or Plasma [2345-7]08/20/2025 09:58 AM121 mg/dLNBlood chemistry[[id number]]?Glucose [Mass/volume] in Serum or Plasma [2345-7] 08/19/2025 12:47 PM175 mg/dLNBlood chemistry[[id number]]?Glucose [Mass/volume] in Serum or Plasma [2345-7]08/19/2025 08:56 AM225 mg/dLNBlood chemistry[[id number]]?Glucose [Mass/volume] in Serum or Plasma [2345-7] 08/19/2025 02:33 PM201 mg/dLNBlood chemistry[[id number]]?Glucose [Mass/volume] in Serum or Plasma [2345-7]08/19/2025 10:24 AM114 mg/dLNBlood chemistry[[id number]]?Glucose [Mass/volume] in Serum or Plasma [2345-7] 08/18/2025 03:44 PM268 mg/dLNBlood chemistry[[id number]]?Glucose [Mass/volume] in Serum or Plasma [2345-7]08/18/2025 08:24 AM138 mg/dLNBlood chemistry[[id number]]?Glucose [Mass/volume] in Serum or Plasma [2345-7] 08/18/2025 02:49 PM164 mg/dLNBlood chemistry[[id number]]?Glucose [Mass/volume] in Serum or Plasma [2345-7]08/18/2025 09:50 AM111 mg/dLNBlood chemistry[[id number]]?Glucose [Mass/volume] in Serum or Plasma [2345-7] 2025 02:07 PM226 mg/dLNBlood chemistry[[id number]]?Glucose [Mass/volume] in Serum or Plasma [2345-7]2025 08:28 AM184 mg/dLNBlood chemistry[[id number]]?Glucose [Mass/volume] in Serum or Plasma [2345-7] 2025 03:25 PM138 mg/dLNBlood chemistry[[id number]]?Glucose [Mass/volume] in Serum or Plasma [2345-7]2025 09:57 AM202 mg/dLNBlood chemistry[[id number]]?Glucose [Mass/volume] in Serum or Plasma [2345-7] 08/16/2025 12:49 PM376 mg/dLNBlood chemistry[[id number]]?Glucose [Mass/volume] in Serum or Plasma [2345-7]08/16/2025 08:27 AM277 mg/dLNBlood chemistry[[id number]]?Glucose [Mass/volume] in Serum or Plasma [2345-7] 08/16/2025 02:00 PM224 mg/dLNBlood chemistry[[id number]]?Glucose [Mass/volume] in Serum or Plasma [2345-7]08/16/2025 09:34 AM128 mg/dLNBlood chemistry[[id number]]?Glucose [Mass/volume] in Serum or Plasma [2345-7] 08/15/2025 01:21 PM211 mg/dLNBlood chemistry[[id number]]?Glucose [Mass/volume] in Serum or Plasma [2345-7]08/15/2025 08:51 AM192 mg/dLNBlood chemistry[[id number]]?Glucose [Mass/volume] in Serum or Plasma [2345-7] 08/15/2025 04:14 PM201 mg/dLNBlood chemistry[[id number]]?Glucose [Mass/volume] in Serum or Plasma [2345-7]08/15/2025 10:15 AM156 mg/dLNBlood chemistry[[id number]]?Glucose [Mass/volume] in Serum or Plasma [2345-7] 08/14/2025 01:53 PM137 mg/dLNBlood chemistry[[id number]]?Glucose [Mass/volume] in Serum or Plasma [2345-7]08/14/2025 07:09 AM151 mg/dLNBlood chemistry[[id number]]?Glucose [Mass/volume] in Serum or Plasma [2345-7] 08/14/2025 02:23 PM180 mg/dLNBlood chemistry[[id number]]?Glucose [Mass/volume] in Serum or Plasma [2345-7]08/14/2025 10:37 AM143 mg/dLNBlood chemistry[[id number]]?Glucose [Mass/volume] in Serum or Plasma [2345-7] 08/13/2025 02:31 PM164 mg/dLNBlood chemistry[[id number]]?Glucose [Mass/volume] in Serum or Plasma [2345-7]08/13/2025 08:02 AM136 mg/dLNBlood chemistry[[id number]]?Glucose [Mass/volume] in Serum or Plasma [2345-7] 08/13/2025 03:28 PM173 mg/dLNBlood chemistry[[id number]]?Glucose [Mass/volume] in Serum or Plasma [2345-7]08/13/2025 10:53 AM138 mg/dLNBlood chemistry[[id number]]?Glucose [Mass/volume] in Serum or Plasma [2345-7] 08/13/2025 04:16 PM185 mg/dLNBlood chemistry[[id number]]?Glucose [Mass/volume] in Serum or Plasma [2345-7]08/12/2025 08:22 AM180 mg/dLNBlood chemistry[[id number]]?Glucose [Mass/volume] in Serum or Plasma [2345-7] 08/12/2025 03:12 PM161 mg/dLNBlood chemistry[[id number]]?Glucose [Mass/volume] in Serum or Plasma [2345-7]08/12/2025 10:19 AM138 mg/dLNBlood chemistry[[id number]]?Glucose [Mass/volume] in Serum or Plasma [2345-7] 08/11/2025 12:28 PM246 mg/dLNBlood chemistry[[id number]]?Glucose [Mass/volume] in Serum or Plasma [2345-7]08/11/2025 08:09 AM171 mg/dLNBlood chemistry[[id number]]?Glucose [Mass/volume] in Serum or Plasma [2345-7] 08/11/2025 02:32 PM152 mg/dLNBlood chemistry[[id number]]?Glucose [Mass/volume] in Serum or Plasma [2345-7]08/11/2025 09:44 AM132 mg/dLNBlood chemistry[[id number]]?Glucose [Mass/volume] in Serum or Plasma [2345-7] 08/10/2025 12:17 PM244 mg/dLNBlood chemistry[[id number]]?Glucose [Mass/volume] in Serum or Plasma [2345-7]08/10/2025 08:11 AM322 mg/dLNBlood chemistry[[id number]]?Glucose [Mass/volume] in Serum or Plasma [2345-7] 08/10/2025 02:54 PM163 mg/dLNBlood chemistry[[id number]]?Glucose [Mass/volume] in Serum or Plasma [2345-7]08/10/2025 10:13 AM116 mg/dLNBlood chemistry[[id number]]?Glucose [Mass/volume] in Serum or Plasma [2345-7] 08/09/2025 01:46 PM164 mg/dLNBlood chemistry[[id number]]?Glucose [Mass/volume] in Serum or Plasma [2345-7]08/09/2025 09:06 AM174 mg/dLNBlood chemistry[[id number]]?Glucose [Mass/volume] in Serum or Plasma [2345-7] 08/09/2025 02:03 PM220 mg/dLNBlood chemistry[[id number]]?Glucose [Mass/volume] in Serum or Plasma [2345-7]08/09/2025 09:40 AM131 mg/dLNBlood chemistry[[id number]]?Glucose [Mass/volume] in Serum or Plasma [2345-7] 08/08/2025 01:53 PM155 mg/dLNBlood chemistry[[id number]]?Glucose [Mass/volume] in Serum or Plasma [2345-7]08/08/2025 08:20 AM200 mg/dLNBlood chemistry[[id number]]?Glucose [Mass/volume] in Serum or Plasma [2345-7] 08/08/2025 02:05 PM173 mg/dLNBlood chemistry[[id number]]?Glucose [Mass/volume] in Serum or Plasma [2345-7]08/08/2025 09:57 AM114 mg/dLNBlood chemistry[[id number]]?Glucose [Mass/volume] in Serum or Plasma [2345-7] 08/07/2025 02:18 PM149 mg/dLNBlood chemistry[[id number]]?Glucose [Mass/volume] in Serum or Plasma [2345-7]08/07/2025 08:12 AM121 mg/dLNBlood chemistry[[id number]]?Glucose [Mass/volume] in Serum or Plasma [2345-7] 08/07/2025 03:35 PM118 mg/dLNBlood chemistry[[id number]]?Glucose [Mass/volume] in Serum or Plasma [2345-7]08/07/2025 10:06 AM122 mg/dLNBlood chemistry[[id number]]?Glucose [Mass/volume] in Serum or Plasma [2345-7] 08/06/2025 12:13 PM270 mg/dLNBlood chemistry[[id number]]?Glucose [Mass/volume] in Serum or Plasma [2345-7]08/06/2025 08:17 AM127 mg/dLNBlood chemistry[[id number]]?Glucose [Mass/volume] in Serum or Plasma [2345-7] 08/06/2025 02:17 PM166 mg/dLNBlood chemistry[[id number]]?Glucose [Mass/volume] in Serum or Plasma [2345-7]08/06/2025 10:20 AM120 mg/dLNBlood chemistry[[id number]]?Glucose [Mass/volume] in Serum or Plasma [2345-7] 08/05/2025 02:07 PM122 mg/dLNBlood chemistry[[id number]]?Glucose [Mass/volume] in Serum or Plasma [2345-7]08/05/2025 08:06 AM154 mg/dLNBlood chemistry[[id number]]?Glucose [Mass/volume] in Serum or Plasma [2345-7] 08/05/2025 03:23 PM152 mg/dLNBlood chemistry[[id number]]?Glucose [Mass/volume] in Serum or Plasma [2345-7]08/05/2025 09:57 AM148 mg/dLNBlood chemistry[[id number]]?Glucose [Mass/volume] in Serum or Plasma [2345-7] 08/04/2025 02:07 PM148 mg/dLNBlood chemistry[[id number]]?Glucose [Mass/volume] in Serum or Plasma [2345-7]08/04/2025 02:25 PM168 mg/dLNBlood chemistry[[id number]]?Glucose [Mass/volume] in Serum or Plasma [2345-7] 08/04/2025 10:27 AM137 mg/dLNBlood chemistry[[id number]]?Glucose [Mass/volume] in Serum or Plasma [2345-7]08/03/2025 02:40 PM263 mg/dLNBlood chemistry[[id number]]?Glucose [Mass/volume] in Serum or Plasma [2345-7] 08/03/2025 07:20 AM163 mg/dLNBlood chemistry[[id number]]?Glucose [Mass/volume] in Serum or Plasma [2345-7]08/03/2025 01:58 PM193 mg/dLNBlood chemistry[[id number]]?Glucose [Mass/volume] in Serum or Plasma [2345-7] 08/03/2025 10:56 AM111 mg/dLNBlood chemistry[[id number]]?Glucose [Mass/volume] in Serum or Plasma [2345-7]08/02/2025 12:46 PM194 mg/dLNBlood chemistry[[id number]]?Glucose [Mass/volume] in Serum or Plasma [2345-7] 08/02/2025 08:44 AM196 mg/dLNBlood chemistry[[id number]]?Glucose [Mass/volume] in Serum or Plasma [2345-7]08/02/2025 02:02 PM202 mg/dLNBlood chemistry[[id number]]?Glucose [Mass/volume] in Serum or Plasma [2345-7] 08/02/2025 10:14 AM111 mg/dLNBlood chemistry[[id number]]?Glucose [Mass/volume] in Serum or Plasma [2345-7]08/01/2025 01:43 PM141 mg/dLNBlood chemistry[[id number]]?Glucose [Mass/volume] in Serum or Plasma [2345-7] 08/01/2025 09:18 AM148 mg/dLNBlood chemistry[[id number]]?Glucose [Mass/volume] in Serum or Plasma [2345-7]08/01/2025 01:52 PM281 mg/dLNBlood chemistry[[id number]]?Glucose [Mass/volume] in Serum or Plasma [2345-7] 08/01/2025 11:38 AM97 mg/dLNBlood chemistry[[id number]]?Glucose [Mass/volume] in Serum or Plasma [2345-7]07/31/2025 01:06 PM174 mg/dLNBlood chemistry[[id number]]?Glucose [Mass/volume] in Serum or Plasma [2345-7] 07/31/2025 08:06 AM143 mg/dLNBlood chemistry[[id number]]?Glucose [Mass/volume] in Serum or Plasma [2345-7]07/31/2025 02:40 PM173 mg/dLNBlood chemistry[[id number]]?Glucose [Mass/volume] in Serum or Plasma [2345-7] 07/31/2025 11:21 AM169 mg/dLNBlood chemistry[[id number]]?Glucose [Mass/volume] in Serum or Plasma [2345-7]07/30/2025 02:14 PM184 mg/dLNBlood chemistry[[id number]]?Glucose [Mass/volume] in Serum or Plasma [2345-7] 07/30/2025 08:23 AM123 mg/dLNBlood chemistry[[id number]]?Glucose [Mass/volume] in Serum or Plasma [2345-7]07/30/2025 04:38 PM147 mg/dLNBlood chemistry[[id number]]?Glucose [Mass/volume] in Serum or Plasma [2345-7] 07/30/2025 11:49 AM124 mg/dLNBlood chemistry[[id number]]?Glucose [Mass/volume] in Serum or Plasma [2345-7]07/29/2025 03:04 PM194 mg/dLNBlood chemistry[[id number]]?Glucose [Mass/volume] in Serum or Plasma [2345-7] 07/29/2025 08:28 AM215 mg/dLNBlood chemistry[[id number]]?Glucose [Mass/volume] in Serum or Plasma [2345-7]07/29/2025 02:58 PM116 mg/dLNBlood chemistry[[id number]]?Glucose [Mass/volume] in Serum or Plasma [2345-7] 07/29/2025 09:52 AM124 mg/dLNBlood chemistry[[id number]]?Glucose [Mass/volume] in Serum or Plasma [2345-7]07/28/2025 12:24 PM226 mg/dLNBlood chemistry[[id number]]?Glucose [Mass/volume] in Serum or Plasma [2345-7] 07/28/2025 07:59 AM161 mg/dLNBlood chemistry[[id number]]?Glucose [Mass/volume] in Serum or Plasma [2345-7]07/28/2025 02:00 PM227 mg/dLNBlood chemistry[[id number]]?Glucose [Mass/volume] in Serum or Plasma [2345-7] 07/28/2025 10:13 AM110 mg/dLNBlood chemistry[[id number]]?Glucose [Mass/volume] in Serum or Plasma [2345-7]07/27/2025 12:41 PM258 mg/dLNBlood chemistry[[id number]]?Glucose [Mass/volume] in Serum or Plasma [2345-7] 07/27/2025 08:15 AM155 mg/dLNBlood chemistry[[id number]]?Glucose [Mass/volume] in Serum or Plasma [2345-7]07/27/2025 03:03 PM126 mg/dLNBlood chemistry[[id number]]?Glucose [Mass/volume] in Serum or Plasma [2345-7] 07/27/2025 10:06 AM104 mg/dLNBlood chemistry[[id number]]?Glucose [Mass/volume] in Serum or Plasma [2345-7]07/26/2025 11:56 AM134 mg/dLNBlood chemistry[[id number]]?Glucose [Mass/volume] in Serum or Plasma [2345-7] 07/26/2025 08:43 AM352 mg/dLNBlood chemistry[[id number]]?Glucose [Mass/volume] in Serum or Plasma [2345-7]07/26/2025 04:49 PM327 mg/dLNBlood chemistry[[id number]]?Glucose [Mass/volume] in Serum or Plasma [2345-7] 07/26/2025 10:08 AM131 mg/dLNBlood chemistry[[id number]]?Glucose [Mass/volume] in Serum or Plasma [2345-7]07/25/2025 02:10 PM178 mg/dLNBlood chemistry[[id number]]?Glucose [Mass/volume] in Serum or Plasma [[facility]] 07/25/2025 08:05 AM143 mg/dLNBlood chemistry[[id number]]?Glucose [Mass/volume] in Serum or Plasma [[facility]]07/25/2025 03:19 PM172 mg/dLNBlood chemistry[[id number]]?Glucose [Mass/volume] in Serum or Plasma [[facility]] 07/25/2025 10:36 AM78 mg/dLNBlood chemistry[[id number]]?Glucose [Mass/volume] in Serum or Plasma [[facility]]07/24/2025 01:50 PM330 mg/dLNBlood chemistry[[id number]]?Glucose [Mass/volume] in Serum or Plasma [2345-7] 07/24/2025 08:14 AM146 mg/dLNBlood chemistry[[id number]]?Glucose [Mass/volume] in Serum or Plasma [2345-7]07/24/2025 02:46 PM115 mg/dLNBlood chemistry[[id number]]?Glucose [Mass/volume] in Serum or Plasma [2345-7] 07/24/2025 07:02 AM107 mg/dLNBlood chemistry[[id number]]?Glucose [Mass/volume] in Serum or Plasma [2345-7]07/23/2025 01:32 PM185 mg/dLNBlood chemistry[[id number]]?Glucose [Mass/volume] in Serum or Plasma [2345-7] 07/23/2025 08:31 AM120 mg/dLNBlood chemistry[[id number]]?Glucose [Mass/volume] in Serum or Plasma [2345-7]07/23/2025 03:32 PM178 mg/dLNBlood chemistry[[id number]]?Glucose [Mass/volume] in Serum or Plasma [2345-7] 07/23/2025 07:06 AM112 mg/dLNBlood chemistry[[id number]]?Glucose [Mass/volume] in Serum or Plasma [[facility]5-[facility]]07/22/2025 01:15 PM157 mg/dLNBlood chemistry[[id number]]?Glucose [Mass/volume] in Serum or Plasma [2345-7] 07/22/2025 08:35 AM137 mg/dLNBlood chemistry[[id number]]?Glucose [Mass/volume] in Serum or Plasma [2345-7]07/22/2025 03:12 PM153 mg/dLNBlood chemistry[[id number]]?Glucose [Mass/volume] in Serum or Plasma [2345-7] 07/22/2025 10:11 AM115 mg/dLNBlood chemistry[[id number]]?Glucose [Mass/volume] in Serum or Plasma [2345-7]07/21/2025 02:12 PM137 mg/dLNBlood chemistry[[id number]]?Glucose [Mass/volume] in Serum or Plasma [2345-7] 07/21/2025 09:34 AM283 mg/dLNBlood chemistry[[id number]]?Glucose [Mass/volume] in Serum or Plasma [2345-7]07/21/2025 03:09 PM221 mg/dLNBlood chemistry[[id number]]?Glucose [Mass/volume] in Serum or Plasma [2345-7] 07/21/2025 08:59 AM123 mg/dLNBlood chemistry[[id number]]?Glucose [Mass/volume] in Serum or Plasma [2345-7]07/20/2025 03:29 PM233 mg/dLNBlood chemistry[[id number]]?Glucose [Mass/volume] in Serum or Plasma [2345-7] 07/20/2025 07:21 AM177 mg/dLNBlood chemistry[[id number]]?Glucose [Mass/volume] in Serum or Plasma [2345-7]07/20/2025 02:21 PM73 mg/dLNBlood chemistry[[id number]]?Glucose [Mass/volume] in Serum or Plasma [2345-7] 07/20/2025 10:56 AM100 mg/dLNBlood chemistry[[id number]]?Glucose [Mass/volume] in Serum or Plasma [2345-7]07/19/2025 12:42 PM181 mg/dLNBlood chemistry[[id number]]?Glucose [Mass/volume] in Serum or Plasma [2345-7] 07/19/2025 02:36 PM298 mg/dLNBlood chemistry[[id number]]?Glucose [Mass/volume] in Serum or Plasma [2345-7]07/19/2025 08:32 AM170 mg/dLNBlood chemistry[[id number]]?Glucose [Mass/volume] in Serum or Plasma [2345-7] 07/19/2025 10:45 AM136 mg/dLNBlood chemistry[[id number]]?Glucose [Mass/volume] in Serum or Plasma [2345-7]07/18/2025 01:50 PM172 mg/dLNBlood chemistry[[id number]]?Glucose [Mass/volume] in Serum or Plasma [2345-7] 07/18/2025 07:47 AM256 mg/dLNBlood chemistry[[id number]]?Glucose [Mass/volume] in Serum or Plasma [2345-7]07/18/2025 02:04 PM177 mg/dLNBlood chemistry[[id number]]?Glucose [Mass/volume] in Serum or Plasma [2345-7] 07/18/2025 09:51 AM114 mg/dLNBlood chemistry[[id number]]?Glucose [Mass/volume] in Serum or Plasma [2345-7]07/17/2025 02:17 PM137 mg/dLNBlood chemistry[[id number]]?Glucose [Mass/volume] in Serum or Plasma [2345-7] 07/17/2025 08:06 AM245 mg/dLNBlood chemistry[[id number]]?Glucose [Mass/volume] in Serum or Plasma [2345-7]07/17/2025 03:15 PM256 mg/dLNBlood chemistry[[id number]]?Glucose [Mass/volume] in Serum or Plasma [2345-7] 07/17/2025 10:27 AM137 mg/dLNBlood chemistry[[id number]]?Glucose [Mass/volume] in Serum or Plasma [2345-7]07/16/2025 01:33 PM229 mg/dLNBlood chemistry[[id number]]?Glucose [Mass/volume] in Serum or Plasma [2345-7] 07/16/2025 08:23 AM263 mg/dLNBlood chemistry[[id number]]?Glucose [Mass/volume] in Serum or Plasma [2345-7]07/16/2025 03:22 PM183 mg/dLNBlood chemistry[[id number]]?Glucose [Mass/volume] in Serum or Plasma [2345-7] 07/16/2025 09:14 AM192 mg/dLNBlood chemistry[[id number]]?Glucose [Mass/volume] in Serum or Plasma [2345-7]07/15/2025 02:42 PM149 mg/dLNBlood chemistry[[id number]]?Glucose [Mass/volume] in Serum or Plasma [[facility]] 07/15/2025 08:38 AM153 mg/dLNBlood chemistry[[id number]]?Glucose [Mass/volume] in Serum or Plasma [[facility]]07/15/2025 01:54 PM193 mg/dLNBlood chemistry[[id number]]?Glucose [Mass/volume] in Serum or Plasma [[facility]] 07/15/2025 08:13 AM104 mg/dLNBlood chemistry[[id number]]?Glucose [Mass/volume] in Serum or Plasma [[facility]]07/14/2025 12:42 PM219 mg/dLNBlood chemistry[[id number]]?Glucose [Mass/volume] in Serum or Plasma [2345-7] 07/14/2025 08:41 AM170 mg/dLNBlood chemistry[[id number]]?Glucose [Mass/volume] in Serum or Plasma [2345-7]07/14/2025 02:40 PM185 mg/dLNBlood chemistry[[id number]]?Glucose [Mass/volume] in Serum or Plasma [2345-7] 07/14/2025 10:47 AM121 mg/dLNBlood chemistry[[id number]]?Glucose [Mass/volume] in Serum or Plasma [2345-7]07/13/2025 02:34 PM255 mg/dLNBlood chemistry[[id number]]?Glucose [Mass/volume] in Serum or Plasma [2345-7] 07/13/2025 01:53 PM215 mg/dLNBlood chemistry[[id number]]?Glucose [Mass/volume] in Serum or Plasma [2345-7]07/13/2025 07:37 AM204 mg/dLNBlood chemistry[[id number]]?Glucose [Mass/volume] in Serum or Plasma [2345-7] 07/13/2025 10:06 AM131 mg/dLNBlood chemistry[[id number]]?Glucose [Mass/volume] in Serum or Plasma [2345-7]07/12/2025 02:27 PM118 mg/dLNBlood chemistry[[id number]]?Glucose [Mass/volume] in Serum or Plasma [2345-7] 07/12/2025 08:00 AM142 mg/dLNBlood chemistry[[id number]]?Glucose [Mass/volume] in Serum or Plasma [2345-7]07/12/2025 03:15 PM161 mg/dLNBlood chemistry[[id number]]?Glucose [Mass/volume] in Serum or Plasma [2345-7] 07/12/2025 10:00 AM111 mg/dLNBlood chemistry[[id number]]?Glucose [Mass/volume] in Serum or Plasma [2345-7]07/11/2025 12:51 PM362 mg/dLNBlood chemistry[[id number]]?Glucose [Mass/volume] in Serum or Plasma [2345-7] 07/11/2025 08:27 AM180 mg/dLNBlood chemistry[[id number]]?Glucose [Mass/volume] in Serum or Plasma [2345-7]07/11/2025 03:25 PM127 mg/dLNBlood chemistry[[id number]]?Glucose [Mass/volume] in Serum or Plasma [2345-7] 07/11/2025 10:39 AM109 mg/dLNBlood chemistry[[id number]]?Glucose [Mass/volume] in Serum or Plasma [2345-7]07/10/2025 01:42 PM160 mg/dLNBlood chemistry[[id number]]?Glucose [Mass/volume] in Serum or Plasma [2345-7] 07/10/2025 08:50 AM183 mg/dLNBlood chemistry[[id number]]?Glucose [Mass/volume] in Serum or Plasma [2345-7]07/10/2025 02:05 PM131 mg/dLNBlood chemistry[[id number]]?Glucose [Mass/volume] in Serum or Plasma [[facility]] 07/10/2025 08:05 AM91 mg/dLNBlood chemistry[[id number]]?Glucose [Mass/volume] in Serum or Plasma [2345-7]07/09/2025 11:43 AM282 mg/dLNBlood chemistry[[id number]]?Glucose [Mass/volume] in Serum or Plasma [2345-7] 07/09/2025 08:06 AM143 mg/dLNBlood chemistry[[id number]]?Glucose [Mass/volume] in Serum or Plasma [2345-7]07/09/2025 02:01 PM130 mg/dLNBlood chemistry[[id number]]?Glucose [Mass/volume] in Serum or Plasma [2345-7] 07/09/2025 10:32 AM84 mg/dLNBlood chemistry[[id number]]?Glucose [Mass/volume] in Serum or Plasma [2345-7]07/08/2025 02:38 PM200 mg/dLNBlood chemistry[[id number]]?Glucose [Mass/volume] in Serum or Plasma [2345-7] 07/08/2025 09:12 AM167 mg/dLNBlood chemistry[[id number]]?Glucose [Mass/volume] in Serum or Plasma [2345-7]07/08/2025 03:12 PM209 mg/dLNBlood chemistry[[id number]]?Glucose [Mass/volume] in Serum or Plasma [2345-7] 07/08/2025 10:43 AM139 mg/dLNBlood chemistry[[id number]]?Glucose [Mass/volume] in Serum or Plasma [2345-7]07/07/2025 02:19 PM131 mg/dLNBlood chemistry[[id number]]?Glucose [Mass/volume] in Serum or Plasma [2345-7] 07/07/2025 08:40 AM166 mg/dLNBlood chemistry[[id number]]?Glucose [Mass/volume] in Serum or Plasma [2345-7]07/07/2025 03:20 PM142 mg/dLNBlood chemistry[[id number]]?Glucose [Mass/volume] in Serum or Plasma [2345-7] 07/07/2025 10:43 AM131 mg/dLNBlood chemistry[[id number]]?Glucose [Mass/volume] in Serum or Plasma [2345-7]07/06/2025 12:50 PM210 mg/dLNBlood chemistry[[id number]]?Glucose [Mass/volume] in Serum or Plasma [2345-7] 07/06/2025 08:50 AM147 mg/dLNBlood chemistry[[id number]]?Glucose [Mass/volume] in Serum or Plasma [2345-7]07/06/2025 02:08 PM219 mg/dLNBlood chemistry[[id number]]?Glucose [Mass/volume] in Serum or Plasma [2345-7] 07/06/2025 09:43 AM126 mg/dLNBlood chemistry[[id number]]?Glucose [Mass/volume] in Serum or Plasma [2345-7]07/05/2025 02:00 PM109 mg/dLNBlood chemistry[[id number]]?Glucose [Mass/volume] in Serum or Plasma [2345-7] 07/05/2025 11:07 AM246 mg/dLNBlood chemistry[[id number]]?Glucose [Mass/volume] in Serum or Plasma [2345-7]07/05/2025 02:58 PM148 mg/dLNBlood chemistry[[id number]]?Glucose [Mass/volume] in Serum or Plasma [2345-7] 07/05/2025 10:41 AM114 mg/dLNBlood chemistry[[id number]]?Glucose [Mass/volume] in Serum or Plasma [2345-7]07/04/2025 02:22 PM205 mg/dLNBlood chemistry[[id number]]?Glucose [Mass/volume] in Serum or Plasma [2345-7] 07/04/2025 09:06 AM148 mg/dLNBlood chemistry[[id number]]?Glucose [Mass/volume] in Serum or Plasma [2345-7]07/04/2025 02:31 PM178 mg/dLNBlood chemistry[[id number]]?Glucose [Mass/volume] in Serum or Plasma [2345-7] 07/04/2025 10:40 AM127 mg/dLNBlood chemistry[[id number]]?Glucose [Mass/volume] in Serum or Plasma [2345-7]07/03/2025 02:46 PM131 mg/dLNBlood chemistry[[id number]]?Glucose [Mass/volume] in Serum or Plasma [2345-7] 07/03/2025 08:23 AM167 mg/dLNBlood chemistry[[id number]]?Glucose [Mass/volume] in Serum or Plasma [2345-7]07/03/2025 03:42 PM146 mg/dLNBlood chemistry[[id number]]?Glucose [Mass/volume] in Serum or Plasma [2345-7] 07/03/2025 10:13 AM144 mg/dLNBlood chemistry[[id number]]?Glucose [Mass/volume] in Serum or Plasma [2345-7]07/02/2025 03:28 PM123 mg/dLNBlood chemistry[[id number]]?Glucose [Mass/volume] in Serum or Plasma [2345-7] 07/02/2025 08:24 AM196 mg/dLNBlood chemistry[[id number]]?Glucose [Mass/volume] in Serum or Plasma [2345-7]07/02/2025 03:23 PM114 mg/dLNBlood chemistry[[id number]]?Glucose [Mass/volume] in Serum or Plasma [2345-7] 07/02/2025 08:07 AM138 mg/dLNBlood chemistry[[id number]]?Glucose [Mass/volume] in Serum or Plasma [2345-7]07/01/2025 12:25 PM193 mg/dLNBlood chemistry[[id number]]?Glucose [Mass/volume] in Serum or Plasma [2345-7] 07/01/2025 08:35 AM160 mg/dLNBlood chemistry[[id number]]?Glucose [Mass/volume] in Serum or Plasma [2345-7]07/01/2025 02:13 PM153 mg/dLNBlood chemistry[[id number]]?Glucose [Mass/volume] in Serum or Plasma [2345-7] 07/01/2025 09:47 AM124 mg/dLNBlood chemistry[[id number]]?Glucose [Mass/volume] in Serum or Plasma [2345-7]06/30/2025 03:06 PM180 mg/dLNBlood chemistry[[id number]]?Glucose [Mass/volume] in Serum or Plasma [2345-7] 06/30/2025 02:38 PM198 mg/dLNBlood chemistry[[id number]]?Glucose [Mass/volume] in Serum or Plasma [[facility]5-[facility]]06/30/2025 10:29 AM124 mg/dLNBlood chemistry[[id number]]?Glucose [Mass/volume] in Serum or Plasma [[facility]] 06/30/2025 09:41 AM200 mg/dLNBlood chemistry[[id number]]?Glucose [Mass/volume] in Serum or Plasma [2345-7]06/29/2025 03:21 PM147 mg/dLNBlood chemistry[[id number]]?Glucose [Mass/volume] in Serum or Plasma [2345-7] 06/29/2025 12:33 PM240 mg/dLNBlood chemistry[[id number]]?Glucose [Mass/volume] in Serum or Plasma [2345-7]06/29/2025 09:49 AM127 mg/dLNBlood chemistry[[id number]]?Glucose [Mass/volume] in Serum or Plasma [2345-7] 06/29/2025 08:20 AM149 mg/dLNBlood chemistry[[id number]]?Glucose [Mass/volume] in Serum or Plasma [2345-7]06/28/2025 03:36 PM114 mg/dLNBlood chemistry[[id number]]?Glucose [Mass/volume] in Serum or Plasma [2345-7] 06/28/2025 01:41 PM282 mg/dLNBlood chemistry[[id number]]?Glucose [Mass/volume] in Serum or Plasma [2345-7]06/28/2025 10:20 AM114 mg/dLNBlood chemistry[[id number]]?Glucose [Mass/volume] in Serum or Plasma [[facility]] 06/28/2025 09:18 AM164 mg/dLNBlood chemistry[[id number]]?Glucose [Mass/volume] in Serum or Plasma [[facility]]06/27/2025 02:32 PM146 mg/dLNBlood chemistry[[id number]]?Glucose [Mass/volume] in Serum or Plasma [[facility]] 06/27/2025 12:49 PM154 mg/dLNBlood chemistry[[id number]]?Glucose [Mass/volume] in Serum or Plasma [[facility]]06/27/2025 10:38 AM89 mg/dLNBlood chemistry[[id number]]?Glucose [Mass/volume] in Serum or Plasma [2345-7] 06/27/2025 08:28 AM152 mg/dLNBlood chemistry[[id number]]?Glucose [Mass/volume] in Serum or Plasma [2345-7]06/26/2025 02:22 PM135 mg/dLNBlood chemistry[[id number]]?Glucose [Mass/volume] in Serum or Plasma [2345-7] 06/26/2025 01:58 PM147 mg/dLNBlood chemistry[[id number]]?Glucose [Mass/volume] in Serum or Plasma [2345-7]06/26/2025 10:40 AM138 mg/dLNBlood chemistry[[id number]]?Glucose [Mass/volume] in Serum or Plasma [2345-7] 06/26/2025 08:49 AM119 mg/dLNBlood chemistry[[id number]]?Glucose [Mass/volume] in Serum or Plasma [[facility]5-7]06/25/2025 02:16 PM207 mg/dLNBlood chemistry[[id number]]?Glucose [Mass/volume] in Serum or Plasma [[facility]5-[facility]] 06/25/2025 01:23 PM230 mg/dLNBlood chemistry[[id number]]?Glucose [Mass/volume] in Serum or Plasma [[facility]]06/25/2025 08:44 AM168 mg/dLNBlood chemistry[[id number]]?Glucose [Mass/volume] in Serum or Plasma [[facility]] 06/25/2025 08:23 AM146 mg/dLNBlood chemistry[[id number]]?Glucose [Mass/volume] in Serum or Plasma [[facility]]06/24/2025 04:16 PM147 mg/dLNBlood chemistry[[id number]]?Glucose [Mass/volume] in Serum or Plasma [2345-7] 06/24/2025 01:43 PM223 mg/dLNBlood chemistry[[id number]]?Glucose [Mass/volume] in Serum or Plasma [2345-7]06/24/2025 10:26 AM108 mg/dLNBlood chemistry[[id number]]?Glucose [Mass/volume] in Serum or Plasma [2345-7] 06/24/2025 08:49 AM183 mg/dLNBlood chemistry[[id number]]?Glucose [Mass/volume] in Serum or Plasma [2345-7]06/23/2025 03:32 PM154 mg/dLNBlood chemistry[[id number]]?Glucose [Mass/volume] in Serum or Plasma [2345-7] 06/23/2025 01:20 PM148 mg/dLNBlood chemistry[[id number]]?Glucose [Mass/volume] in Serum or Plasma [2345-7]06/23/2025 10:05 AM122 mg/dLNBlood chemistry[[id number]]?Glucose [Mass/volume] in Serum or Plasma [2345-7] 06/23/2025 08:34 AM133 mg/dLNBlood chemistry[[id number]]?Glucose [Mass/volume] in Serum or Plasma [2345-7]06/22/2025 03:52 PM162 mg/dLNBlood chemistry[[id number]]?Glucose [Mass/volume] in Serum or Plasma [[facility]5-[facility]] 06/22/2025 01:01 PM132 mg/dLNBlood chemistry[[id number]]?Glucose [Mass/volume] in Serum or Plasma [2345-7]06/22/2025 10:02 AM134 mg/dLNBlood chemistry[[id number]]?Glucose [Mass/volume] in Serum or Plasma [2345-7] 06/22/2025 08:14 AM172 mg/dLNBlood chemistry[[id number]]?Glucose [Mass/volume] in Serum or Plasma [2345-7]06/21/2025 03:11 PM165 mg/dLNBlood chemistry[[id number]]?Glucose [Mass/volume] in Serum or Plasma [2345-7] 06/21/2025 01:13 PM118 mg/dLNBlood chemistry[[id number]]?Glucose [Mass/volume] in Serum or Plasma [2345-7]06/21/2025 10:45 AM123 mg/dLNBlood chemistry[[id number]]?Glucose [Mass/volume] in Serum or Plasma [2345-7] 06/21/2025 08:20 AM173 mg/dLNBlood chemistry[[id number]]?Glucose [Mass/volume] in Serum or Plasma [2345-7]06/20/2025 03:30 PM119 mg/dLNBlood chemistry[[id number]]?Glucose [Mass/volume] in Serum or Plasma [2345-7] 06/20/2025 03:17 PM162 mg/dLNBlood chemistry[[id number]]?Glucose [Mass/volume] in Serum or Plasma [2345-7]06/20/2025 10:15 AM125 mg/dLNBlood chemistry[[id number]]?Glucose [Mass/volume] in Serum or Plasma [[facility]5-[facility]] 06/20/2025 08:51 AM168 mg/dLNBlood chemistry[[id number]]?Glucose [Mass/volume] in Serum or Plasma [2345-7]06/19/2025 03:35 PM175 mg/dLNBlood chemistry[[id number]]?Glucose [Mass/volume] in Serum or Plasma [2345-7] 06/19/2025 02:03 PM245 mg/dLNBlood chemistry[[id number]]?Glucose [Mass/volume] in Serum or Plasma [2345-7]06/19/2025 10:33 AM150 mg/dLNBlood chemistry[[id number]]?Glucose [Mass/volume] in Serum or Plasma [2345-7] 06/19/2025 08:57 AM250 mg/dLNBlood chemistry[[id number]]?Glucose [Mass/volume] in Serum or Plasma [2345-7]06/18/2025 03:36 PM170 mg/dLNBlood chemistry[[id number]]?Glucose [Mass/volume] in Serum or Plasma [2345-7] 06/18/2025 02:06 PM283 mg/dLNBlood chemistry[[id number]]?Glucose [Mass/volume] in Serum or Plasma [2345-7]06/18/2025 09:36 AM126 mg/dLNBlood chemistry[[id number]]?Glucose [Mass/volume] in Serum or Plasma [2345-7] 06/18/2025 08:40 AM173 mg/dLNBlood chemistry[[id number]]?Glucose [Mass/volume] in Serum or Plasma [2345-7]06/17/2025 04:01 PM174 mg/dLNBlood chemistry[[id number]]?Glucose [Mass/volume] in Serum or Plasma [2345-7] 06/17/2025 02:45 PM296 mg/dLNBlood chemistry[[id number]]?Glucose [Mass/volume] in Serum or Plasma [2345-7]06/17/2025 02:29 PM152 mg/dLNBlood chemistry[[id number]]?Glucose [Mass/volume] in Serum or Plasma [2345-7] 06/17/2025 09:44 AM151 mg/dLNBlood chemistry[[id number]]?Glucose [Mass/volume] in Serum or Plasma [2345-7]06/17/2025 08:53 AM201 mg/dLNBlood chemistry[[id number]]?Glucose [Mass/volume] in Serum or Plasma [2345-7] 06/16/2025 03:44 PM171 mg/dLNBlood chemistry[[id number]]?Glucose [Mass/volume] in Serum or Plasma [2345-7]06/16/2025 10:19 AM113 mg/dLNBlood chemistry[[id number]]?Glucose [Mass/volume] in Serum or Plasma [2345-7] 06/16/2025 08:23 AM216 mg/dLNBlood chemistry[[id number]]?Glucose [Mass/volume] in Serum or Plasma [2345-7]06/15/2025 02:26 PM134 mg/dLNBlood chemistry[[id number]]?Glucose [Mass/volume] in Serum or Plasma [[facility]5-7] 06/15/2025 12:55 PM210 mg/dLNBlood chemistry[[id number]]?Glucose [Mass/volume] in Serum or Plasma [[facility]5-7]06/15/2025 08:15 AM135 mg/dLNBlood chemistry[[id number]]?Glucose [Mass/volume] in Serum or Plasma [[facility]5-7] 06/15/2025 08:05 AM190 mg/dLNBlood chemistry[[id number]]?Glucose [Mass/volume] in Serum or Plasma [[facility]5-7]06/14/2025 03:48 PM142 mg/dLNBlood chemistry[[id number]]?Glucose [Mass/volume] in Serum or Plasma [2345-7] 06/14/2025 02:49 PM113 mg/dLNBlood chemistry[[id number]]?Glucose [Mass/volume] in Serum or Plasma [2345-7]06/14/2025 09:41 AM122 mg/dLNBlood chemistry[[id number]]?Glucose [Mass/volume] in Serum or Plasma [2345-7] 06/14/2025 08:55 AM143 mg/dLNBlood chemistry[[id number]]?Glucose [Mass/volume] in Serum or Plasma [2345-7]06/13/2025 03:13 PM272 mg/dLNBlood chemistry[[id number]]?Glucose [Mass/volume] in Serum or Plasma [2345-7] 06/13/2025 01:57 PM232 mg/dLNBlood chemistry[[id number]]?Glucose [Mass/volume] in Serum or Plasma [2345-7]06/13/2025 09:48 AM180 mg/dLNBlood chemistry[[id number]]?Glucose [Mass/volume] in Serum or Plasma [2345-7] 06/13/2025 08:27 AM276 mg/dLNBlood chemistry[[id number]]?Glucose [Mass/volume] in Serum or Plasma [2345-7]06/12/2025 02:48 PM253 mg/dLNBlood chemistry[[id number]]?Glucose [Mass/volume] in Serum or Plasma [2345-7] 06/12/2025 02:39 PM150 mg/dLNBlood chemistry[[id number]]?Glucose [Mass/volume] in Serum or Plasma [2345-7]06/12/2025 10:21 AM143 mg/dLNBlood chemistry[[id number]]?Glucose [Mass/volume] in Serum or Plasma [2345-7] 06/12/2025 08:34 AM150 mg/dLNBlood chemistry[[id number]]?Glucose [Mass/volume] in Serum or Plasma [2345-7]06/11/2025 02:35 PM211 mg/dLNBlood chemistry[[id number]]?Glucose [Mass/volume] in Serum or Plasma [2345-7] 06/11/2025 02:10 PM130 mg/dLNBlood chemistry[[id number]]?Glucose [Mass/volume] in Serum or Plasma [2345-7]06/11/2025 09:36 AM123 mg/dLNBlood chemistry[[id number]]?Glucose [Mass/volume] in Serum or Plasma [2345-7] 06/11/2025 08:11 AM138 mg/dLNBlood chemistry[[id number]]?Glucose [Mass/volume] in Serum or Plasma [2345-7]06/10/2025 03:20 PM151 mg/dLNBlood chemistry[[id number]]?Glucose [Mass/volume] in Serum or Plasma [2345-7] 06/10/2025 12:21 PM288 mg/dLNBlood chemistry[[id number]]?Glucose [Mass/volume] in Serum or Plasma [[facility]5-7]06/10/2025 10:16 AM142 mg/dLNBlood chemistry[[id number]]?Glucose [Mass/volume] in Serum or Plasma [[facility]] 06/10/2025 08:15 AM214 mg/dLNBlood chemistry[[id number]]?Glucose [Mass/volume] in Serum or Plasma [2345-7]06/09/2025 03:31 PM157 mg/dLNBlood chemistry[[id number]]?Glucose [Mass/volume] in Serum or Plasma [2345-7] 06/09/2025 02:13 PM146 mg/dLNBlood chemistry[[id number]]?Glucose [Mass/volume] in Serum or Plasma [2345-7]06/09/2025 08:59 AM138 mg/dLNBlood chemistry[[id number]]?Glucose [Mass/volume] in Serum or Plasma [2345-7] 06/09/2025 08:53 AM133 mg/dLNBlood chemistry[[id number]]?Glucose [Mass/volume] in Serum or Plasma [2345-7]06/08/2025 04:08 PM180 mg/dLNBlood chemistry[[id number]]?Glucose [Mass/volume] in Serum or Plasma [2345-7] 06/08/2025 01:22 PM226 mg/dLNBlood chemistry[[id number]]?Glucose [Mass/volume] in Serum or Plasma [2345-7]06/08/2025 09:23 AM163 mg/dLNBlood chemistry[[id number]]?Glucose [Mass/volume] in Serum or Plasma [2345-7] 06/08/2025 08:29 AM183 mg/dLNBlood chemistry[[id number]]?Glucose [Mass/volume] in Serum or Plasma [2345-7]06/07/2025 02:59 PM186 mg/dLNBlood chemistry[[id number]]?Glucose [Mass/volume] in Serum or Plasma [2345-7] 06/07/2025 01:19 PM315 mg/dLNBlood chemistry[[id number]]?Glucose [Mass/volume] in Serum or Plasma [2345-7]06/07/2025 09:43 AM157 mg/dLNBlood chemistry[[id number]]?Glucose [Mass/volume] in Serum or Plasma [2345-7] 06/07/2025 08:40 AM248 mg/dLNBlood chemistry[[id number]]?Glucose [Mass/volume] in Serum or Plasma [2345-7]06/06/2025 02:10 PM191 mg/dLNBlood chemistry[[id number]]?Glucose [Mass/volume] in Serum or Plasma [2345-7] 06/06/2025 12:52 PM240 mg/dLNBlood chemistry[[id number]]?Glucose [Mass/volume] in Serum or Plasma [2345-7]06/06/2025 10:43 AM181 mg/dLNBlood chemistry[[id number]]?Glucose [Mass/volume] in Serum or Plasma [2345-7] 06/06/2025 08:32 AM218 mg/dLNBlood chemistry[[id number]]?Glucose [Mass/volume] in Serum or Plasma [2345-7]06/05/2025 03:37 PM206 mg/dLNBlood chemistry[[id number]]?Glucose [Mass/volume] in Serum or Plasma [[facility]5-7] 06/05/2025 01:32 PM167 mg/dLNBlood chemistry[[id number]]?Glucose [Mass/volume] in Serum or Plasma [[facility]7]06/05/2025 10:13 AM157 mg/dLNBlood chemistry[[id number]]?Glucose [Mass/volume] in Serum or Plasma [[facility]] 06/05/2025 07:48 AM159 mg/dLNBlood chemistry[[id number]]?Glucose [Mass/volume] in Serum or Plasma [2345-7]06/04/2025 03:16 PM195 mg/dLNBlood chemistry[[id number]]?Glucose [Mass/volume] in Serum or Plasma [2345-7] 06/04/2025 01:35 PM137 mg/dLNBlood chemistry[[id number]]?Glucose [Mass/volume] in Serum or Plasma [2345-7]06/04/2025 10:27 AM155 mg/dLNBlood chemistry[[id number]]?Glucose [Mass/volume] in Serum or Plasma [2345-7] 06/04/2025 08:55 AM249 mg/dLNBlood chemistry[[id number]]?Glucose [Mass/volume] in Serum or Plasma [2345-7]06/03/2025 03:33 PM145 mg/dLNBlood chemistry[[id number]]?Glucose [Mass/volume] in Serum or Plasma [2345-7] 06/03/2025 03:05 PM132 mg/dLNBlood chemistry[[id number]]?Glucose [Mass/volume] in Serum or Plasma [2345-7]06/03/2025 09:43 AM138 mg/dLNBlood chemistry[[id number]]?Glucose [Mass/volume] in Serum or Plasma [2345-7] 06/03/2025 09:13 AM172 mg/dLNBlood chemistry[[id number]]?Glucose [Mass/volume] in Serum or Plasma [2345-7]06/02/2025 04:09 PM134 mg/dLNBlood chemistry[[id number]]?Glucose [Mass/volume] in Serum or Plasma [2345-7] 06/02/2025 01:13 PM140 mg/dLNBlood chemistry[[id number]]?Glucose [Mass/volume] in Serum or Plasma [2345-7]06/02/2025 09:32 AM140 mg/dLNBlood chemistry[[id number]]?Glucose [Mass/volume] in Serum or Plasma [2345-7] 06/02/2025 08:08 AM134 mg/dLNBlood chemistry[[id number]]?Glucose [Mass/volume] in Serum or Plasma [2345-7]06/01/2025 02:57 PM136 mg/dLNBlood chemistry[[id number]]?Glucose [Mass/volume] in Serum or Plasma [2345-7] 06/01/2025 02:45 PM163 mg/dLNBlood chemistry[[id number]]?Glucose [Mass/volume] in Serum or Plasma [[facility]5-7]06/01/2025 09:44 AM118 mg/dLNBlood chemistry[[id number]]?Glucose [Mass/volume] in Serum or Plasma [[facility]7] 06/01/2025 08:27 AM144 mg/dLNBlood chemistry[[id number]]?Glucose [Mass/volume] in Serum or Plasma [[facility]]05/31/2025 03:20 PM182 mg/dLNBlood chemistry[[id number]]?Glucose [Mass/volume] in Serum or Plasma [[facility]] 05/31/2025 01:57 PM162 mg/dLNBlood chemistry[[id number]]?Glucose [Mass/volume] in Serum or Plasma [[facility]]05/31/2025 10:57 AM151 mg/dLNBlood chemistry[[id number]]?Glucose [Mass/volume] in Serum or Plasma [[facility]] 05/31/2025 08:55 AM252 mg/dLNBlood chemistry[[id number]]?Glucose [Mass/volume] in Serum or Plasma [[facility]]05/30/2025 03:30 PM159 mg/dLNBlood chemistry[[id number]]?Glucose [Mass/volume] in Serum or Plasma [[facility]] 05/30/2025 10:20 AM108 mg/dLNBlood chemistry[[id number]]?Glucose [Mass/volume] in Serum or Plasma [[facility]]05/30/2025 08:41 AM131 mg/dLNBlood chemistry[[id number]]?Glucose [Mass/volume] in Serum or Plasma [[facility]] 05/29/2025 02:54 PM116 mg/dLNBlood chemistry[[id number]]?Glucose [Mass/volume] in Serum or Plasma [2345-7]05/29/2025 12:49 PM123 mg/dLNBlood chemistry[[id number]]?Glucose [Mass/volume] in Serum or Plasma [2345-7] 05/29/2025 08:29 AM173 mg/dLNBlood chemistry[[id number]]?Glucose [Mass/volume] in Serum or Plasma [2345-7]05/29/2025 08:15 AM104 mg/dLNBlood chemistry[[id number]]?Glucose [Mass/volume] in Serum or Plasma [2345-7] 05/28/2025 02:59 PM162 mg/dLNBlood chemistry[[id number]]?Glucose [Mass/volume] in Serum or Plasma [2345-7]05/28/2025 12:56 PM230 mg/dLNBlood chemistry[[id number]]?Glucose [Mass/volume] in Serum or Plasma [2345-7] 05/28/2025 08:20 AM168 mg/dLNBlood chemistry[[id number]]?Glucose [Mass/volume] in Serum or Plasma [2345-7]05/28/2025 07:56 AM114 mg/dLNBlood chemistry[[id number]]?Glucose [Mass/volume] in Serum or Plasma [2345-7] 05/27/2025 03:14 PM196 mg/dLNBlood chemistry[[id number]]?Glucose [Mass/volume] in Serum or Plasma [2345-7]05/27/2025 01:03 PM262 mg/dLNBlood chemistry[[id number]]?Glucose [Mass/volume] in Serum or Plasma [2345-7] 05/27/2025 10:41 AM111 mg/dLNBlood chemistry[[id number]]?Glucose [Mass/volume] in Serum or Plasma [2345-7]05/27/2025 08:18 AM235 mg/dLNBlood chemistry[[id number]]?Glucose [Mass/volume] in Serum or Plasma [2345-7] 05/26/2025 03:31 PM158 mg/dLNBlood chemistry[[id number]]?Glucose [Mass/volume] in Serum or Plasma [2345-7]05/26/2025 01:42 PM164 mg/dLNBlood chemistry[[id number]]?Glucose [Mass/volume] in Serum or Plasma [2345-7] 05/26/2025 09:54 AM108 mg/dLNBlood chemistry[[id number]]?Glucose [Mass/volume] in Serum or Plasma [2345-7]05/26/2025 07:48 AM147 mg/dLNBlood chemistry[[id number]]?Glucose [Mass/volume] in Serum or Plasma [2345-7] 05/25/2025 02:52 PM152 mg/dLNBlood chemistry[[id number]]?Glucose [Mass/volume] in Serum or Plasma [2345-7]05/25/2025 12:56 PM148 mg/dLNBlood chemistry[[id number]]?Glucose [Mass/volume] in Serum or Plasma [2345-7] 05/25/2025 12:48 PM125 mg/dLNBlood chemistry[[id number]]?Glucose [Mass/volume] in Serum or Plasma [2345-7]05/25/2025 08:16 AM131 mg/dLNBlood chemistry[[id number]]?Glucose [Mass/volume] in Serum or Plasma [2345-7] 05/24/2025 03:22 PM174 mg/dLNBlood chemistry[[id number]]?Glucose [Mass/volume] in Serum or Plasma [2345-7]05/24/2025 01:04 PM229 mg/dLNBlood chemistry[[id number]]?Glucose [Mass/volume] in Serum or Plasma [2345-7] 05/24/2025 10:28 AM110 mg/dLNBlood chemistry[[id number]]?Glucose [Mass/volume] in Serum or Plasma [2345-7]05/24/2025 08:17 AM223 mg/dLNBlood chemistry[[id number]]?Glucose [Mass/volume] in Serum or Plasma [2345-7] 05/23/2025 03:13 PM315 mg/dLNBlood chemistry[[id number]]?Glucose [Mass/volume] in Serum or Plasma [2345-7]05/23/2025 11:22 AM178 mg/dLNBlood chemistry[[id number]]?Glucose [Mass/volume] in Serum or Plasma [2345-7] 05/23/2025 10:08 AM150 mg/dLNBlood chemistry[[id number]]?Glucose [Mass/volume] in Serum or Plasma [2345-7]05/23/2025 08:51 AM212 mg/dLNBlood chemistry[[id number]]?Glucose [Mass/volume] in Serum or Plasma [2345-7] 05/22/2025 03:47 PM155 mg/dLNBlood chemistry[[id number]]?Glucose [Mass/volume] in Serum or Plasma [2345-7]05/22/2025 02:15 PM147 mg/dLNBlood chemistry[[id number]]?Glucose [Mass/volume] in Serum or Plasma [2345-7] 05/22/2025 10:25 AM161 mg/dLNBlood chemistry[[id number]]?Glucose [Mass/volume] in Serum or Plasma [2345-7]05/22/2025 08:15 AM203 mg/dLNBlood chemistry[[id number]]?Glucose [Mass/volume] in Serum or Plasma [2345-7] 05/21/2025 03:36 PM140 mg/dLNBlood chemistry[[id number]]?Glucose [Mass/volume] in Serum or Plasma [2345-7]05/21/2025 01:40 PM143 mg/dLNBlood chemistry[[id number]]?Glucose [Mass/volume] in Serum or Plasma [2345-7] 05/21/2025 08:36 AM236 mg/dLNBlood chemistry[[id number]]?Glucose [Mass/volume] in Serum or Plasma [2345-7]05/21/2025 08:17 AM117 mg/dLNBlood chemistry[[id number]]?Glucose [Mass/volume] in Serum or Plasma [2345-7] 05/20/2025 02:54 PM117 mg/dLNBlood chemistry[[id number]]?Glucose [Mass/volume] in Serum or Plasma [2345-7]05/20/2025 01:37 PM167 mg/dLNBlood chemistry[[id number]]?Glucose [Mass/volume] in Serum or Plasma [2345-7] 05/20/2025 09:39 AM117 mg/dLNBlood chemistry[[id number]]?Glucose [Mass/volume] in Serum or Plasma [2345-7]05/20/2025 08:54 AM154 mg/dLNBlood chemistry[[id number]]?Glucose [Mass/volume] in Serum or Plasma [2345-7] 05/19/2025 03:09 PM321 mg/dLNBlood chemistry[[id number]]?Glucose [Mass/volume] in Serum or Plasma [2345-7]05/19/2025 01:50 PM144 mg/dLNBlood chemistry[[id number]]?Glucose [Mass/volume] in Serum or Plasma [2345-7] 05/19/2025 08:22 AM217 mg/dLNBlood chemistry[[id number]]?Glucose [Mass/volume] in Serum or Plasma [2345-7]05/19/2025 07:52 AM239 mg/dLNBlood chemistry[[id number]]?Glucose [Mass/volume] in Serum or Plasma [2345-7] 05/18/2025 03:15 PM192 mg/dLNBlood chemistry[[id number]]?Glucose [Mass/volume] in Serum or Plasma [2345-7]05/18/2025 01:42 PM266 mg/dLNBlood chemistry[[id number]]?Glucose [Mass/volume] in Serum or Plasma [2345-7] 05/18/2025 09:44 AM167 mg/dLNBlood chemistry[[id number]]?Glucose [Mass/volume] in Serum or Plasma [2345-7]05/18/2025 08:18 AM213 mg/dLNBlood chemistry[[id number]]?Glucose [Mass/volume] in Serum or Plasma [2345-7] 05/17/2025 03:18 PM228 mg/dLNBlood chemistry[[id number]]?Glucose [Mass/volume] in Serum or Plasma [2345-7]05/17/2025 02:58 PM184 mg/dLNBlood chemistry[[id number]]?Glucose [Mass/volume] in Serum or Plasma [2345-7] 05/17/2025 10:38 AM116 mg/dLNBlood chemistry[[id number]]?Glucose [Mass/volume] in Serum or Plasma [2345-7]05/17/2025 09:28 AM222 mg/dLNBlood chemistry[[id number]]?Glucose [Mass/volume] in Serum or Plasma [2345-7] 05/16/2025 03:07 PM170 mg/dLNBlood chemistry[[id number]]?Glucose [Mass/volume] in Serum or Plasma [2345-7]05/16/2025 01:33 PM169 mg/dLNBlood chemistry[[id number]]?Glucose [Mass/volume] in Serum or Plasma [2345-7] 05/16/2025 11:29 AM117 mg/dLNBlood chemistry[[id number]]?Glucose [Mass/volume] in Serum or Plasma [2345-7]05/16/2025 08:15 AM260 mg/dLNBlood chemistry[[id number]]?Glucose [Mass/volume] in Serum or Plasma [2345-7] 05/15/2025 01:41 PM219 mg/dLNBlood chemistry[[id number]]?Glucose [Mass/volume] in Serum or Plasma [2345-7]05/15/2025 01:00 PM175 mg/dLNBlood chemistry[[id number]]?Glucose [Mass/volume] in Serum or Plasma [2345-7] 05/15/2025 10:40 AM132 mg/dLNBlood chemistry[[id number]]?Glucose [Mass/volume] in Serum or Plasma [2345-7]05/15/2025 08:22 AM260 mg/dLNBlood chemistry[[id number]]?Glucose [Mass/volume] in Serum or Plasma [2345-7] 05/14/2025 03:29 PM161 mg/dLNBlood chemistry[[id number]]?Glucose [Mass/volume] in Serum or Plasma [2345-7]05/14/2025 01:25 PM180 mg/dLNBlood chemistry[[id number]]?Glucose [Mass/volume] in Serum or Plasma [2345-7] 05/14/2025 10:24 AM135 mg/dLNBlood chemistry[[id number]]?Glucose [Mass/volume] in Serum or Plasma [2345-7]05/14/2025 08:11 AM149 mg/dLNBlood chemistry[[id number]]?Glucose [Mass/volume] in Serum or Plasma [2345-7] 05/13/2025 03:19 PM200 mg/dLNBlood chemistry[[id number]]?Glucose [Mass/volume] in Serum or Plasma [2345-7]05/13/2025 01:09 PM125 mg/dLNBlood chemistry[[id number]]?Glucose [Mass/volume] in Serum or Plasma [2345-7] 05/13/2025 10:06 AM125 mg/dLNBlood chemistry[[id number]]?Glucose [Mass/volume] in Serum or Plasma [2345-7]05/13/2025 08:20 AM220 mg/dLNBlood chemistry[[id number]]?Glucose [Mass/volume] in Serum or Plasma [2345-7] 05/12/2025 03:30 PM182 mg/dLNBlood chemistry[[id number]]?Glucose [Mass/volume] in Serum or Plasma [2345-7]05/12/2025 02:11 PM167 mg/dLNBlood chemistry[[id number]]?Glucose [Mass/volume] in Serum or Plasma [2345-7] 05/12/2025 09:40 AM160 mg/dLNBlood chemistry[[id number]]?Glucose [Mass/volume] in Serum or Plasma [2345-7]05/12/2025 08:11 AM166 mg/dLNBlood chemistry[[id number]]?Glucose [Mass/volume] in Serum or Plasma [2345-7] 05/11/2025 02:42 PM134 mg/dLNBlood chemistry[[id number]]?Glucose [Mass/volume] in Serum or Plasma [2345-7]05/11/2025 01:24 PM211 mg/dLNBlood chemistry[[id number]]?Glucose [Mass/volume] in Serum or Plasma [2345-7] 05/11/2025 10:24 AM124 mg/dLNBlood chemistry[[id number]]?Glucose [Mass/volume] in Serum or Plasma [2345-7]05/11/2025 08:19 AM212 mg/dLNBlood chemistry[[id number]]?Glucose [Mass/volume] in Serum or Plasma [2345-7] 05/10/2025 03:29 PM182 mg/dLNBlood chemistry[[id number]]?Glucose [Mass/volume] in Serum or Plasma [2345-7]05/10/2025 12:42 PM195 mg/dLNBlood chemistry[[id number]]?Glucose [Mass/volume] in Serum or Plasma [2345-7] 05/10/2025 08:12 AM318 mg/dLNBlood chemistry[[id number]]?Glucose [Mass/volume] in Serum or Plasma [2345-7]05/10/2025 07:30 AM134 mg/dLNBlood chemistry[[id number]]?Glucose [Mass/volume] in Serum or Plasma [2345-7] 05/09/2025 11:49 AM124 mg/dLNBlood chemistry[[id number]]?Glucose [Mass/volume] in Serum or Plasma [2345-7]05/09/2025 10:08 AM122 mg/dLNBlood chemistry[[id number]]?Glucose [Mass/volume] in Serum or Plasma [2345-7] 05/09/2025 08:23 AM177 mg/dLNBlood chemistry[[id number]]?Glucose [Mass/volume] in Serum or Plasma [2345-7]05/08/2025 03:35 PM168 mg/dLNBlood chemistry[[id number]]?Glucose [Mass/volume] in Serum or Plasma [2345-7] 05/08/2025 12:05 PM146 mg/dLNBlood chemistry[[id number]]?Glucose [Mass/volume] in Serum or Plasma [2345-7]05/08/2025 10:11 AM158 mg/dLNBlood chemistry[[id number]]?Glucose [Mass/volume] in Serum or Plasma [2345-7] 05/08/2025 08:17 AM211 mg/dLNBlood chemistry[[id number]]?Glucose [Mass/volume] in Serum or Plasma [2345-7]05/07/2025 03:17 PM208 mg/dLNBlood chemistry[[id number]]?Glucose [Mass/volume] in Serum or Plasma [2345-7] 05/07/2025 02:22 PM143 mg/dLNBlood chemistry[[id number]]?Glucose [Mass/volume] in Serum or Plasma [2345-7]05/07/2025 10:11 AM93 mg/dLNBlood chemistry[[id number]]?Glucose [Mass/volume] in Serum or Plasma [2345-7] 05/07/2025 08:13 AM153 mg/dLNBlood chemistry[[id number]]?Glucose [Mass/volume] in Serum or Plasma [2345-7]05/06/2025 02:39 PM169 mg/dLNBlood chemistry[[id number]]?Glucose [Mass/volume] in Serum or Plasma [2345-7] 05/06/2025 02:10 PM133 mg/dLNBlood chemistry[[id number]]?Glucose [Mass/volume] in Serum or Plasma [2345-7]05/06/2025 10:26 AM137 mg/dLNBlood chemistry[[id number]]?Glucose [Mass/volume] in Serum or Plasma [2345-7] 05/06/2025 09:32 AM147 mg/dLNBlood chemistry[[id number]]?Glucose [Mass/volume] in Serum or Plasma [2345-7]05/05/2025 03:09 PM177 mg/dLNBlood chemistry[[id number]]?Glucose [Mass/volume] in Serum or Plasma [2345-7] 05/05/2025 12:46 PM184 mg/dLNBlood chemistry[[id number]]?Glucose [Mass/volume] in Serum or Plasma [2345-7]05/05/2025 10:10 AM128 mg/dLNBlood chemistry[[id number]]?Glucose [Mass/volume] in Serum or Plasma [2345-7] 05/05/2025 08:20 AM449 mg/dLNBlood chemistry[[id number]]?Glucose [Mass/volume] in Serum or Plasma [2345-7]05/04/2025 02:55 PM200 mg/dLNBlood chemistry[[id number]]?Glucose [Mass/volume] in Serum or Plasma [2345-7] 05/04/2025 12:42 PM282 mg/dLNBlood chemistry[[id number]]?Glucose [Mass/volume] in Serum or Plasma [2345-7]05/04/2025 09:34 AM110 mg/dLNBlood chemistry[[id number]]?Glucose [Mass/volume] in Serum or Plasma [2345-7] 05/04/2025 08:31 AM166 mg/dLNBlood chemistry[[id number]]?Glucose [Mass/volume] in Serum or Plasma [2345-7]05/03/2025 03:10 PM273 mg/dLNBlood chemistry[[id number]]?Glucose [Mass/volume] in Serum or Plasma [2345-7] 05/03/2025 01:49 PM239 mg/dLNBlood chemistry[[id number]]?Glucose [Mass/volume] in Serum or Plasma [2345-7]05/03/2025 10:01 AM110 mg/dLNBlood chemistry[[id number]]?Glucose [Mass/volume] in Serum or Plasma [2345-7] 05/03/2025 08:28 AM176 mg/dLNBlood chemistry[[id number]]?Glucose [Mass/volume] in Serum or Plasma [2345-7]05/02/2025 02:50 PM191 mg/dLNBlood chemistry[[id number]]?Glucose [Mass/volume] in Serum or Plasma [2345-7] 05/02/2025 12:45 PM185 mg/dLNBlood chemistry[[id number]]?Glucose [Mass/volume] in Serum or Plasma [2345-7]05/02/2025 09:37 AM132 mg/dLNBlood chemistry[[id number]]?Glucose [Mass/volume] in Serum or Plasma [2345-7] 05/02/2025 08:32 AM180 mg/dLNBlood chemistry[[id number]]?Glucose [Mass/volume] in Serum or Plasma [2345-7]05/01/2025 04:22 PM145 mg/dLNBlood chemistry[[id number]]?Glucose [Mass/volume] in Serum or Plasma [2345-7] 05/01/2025 02:55 PM157 mg/dLNBlood chemistry[[id number]]?Glucose [Mass/volume] in Serum or Plasma [2345-7]05/01/2025 12:04 PM187 mg/dLNBlood chemistry[[id number]]?Glucose [Mass/volume] in Serum or Plasma [2345-7] 05/01/2025 09:54 AM118 mg/dLNBlood chemistry[[id number]]?Glucose [Mass/volume] in Serum or Plasma [2345-7]05/01/2025 07:46 AM235 mg/dLNBlood chemistry[[id number]]?Glucose [Mass/volume] in Serum or Plasma [2345-7] 04/30/2025 02:45 PM122 mg/dLNBlood chemistry[[id number]]?Glucose [Mass/volume] in Serum or Plasma [2345-7]04/30/2025 10:03 AM287 mg/dLNBlood chemistry[[id number]]?Glucose [Mass/volume] in Serum or Plasma [2345-7] 04/30/2025 07:46 AM149 mg/dLNBlood chemistry[[id number]]?Glucose [Mass/volume] in Serum or Plasma [2345-7]04/29/2025 03:00 PM224 mg/dLNBlood chemistry[[id number]]?Glucose [Mass/volume] in Serum or Plasma [2345-7] 04/29/2025 11:32 AM180 mg/dLNBlood chemistry[[id number]]?Glucose [Mass/volume] in Serum or Plasma [2345-7]04/29/2025 08:20 AM121 mg/dLNBlood chemistry[[id number]]?Glucose [Mass/volume] in Serum or Plasma [2345-7] 04/29/2025 07:50 AM173 mg/dLNBlood chemistry[[id number]]?Glucose [Mass/volume] in Serum or Plasma [2345-7]04/28/2025 02:06 PM302 mg/dLNBlood chemistry[[id number]]?Glucose [Mass/volume] in Serum or Plasma [2345-7] 04/28/2025 08:34 AM149 mg/dLNBlood chemistry[[id number]]?Glucose [Mass/volume] in Serum or Plasma [2345-7]04/24/2025 03:37 PM200 mg/dLNBlood chemistry[[id number]]?Glucose [Mass/volume] in Serum or Plasma [2345-7] 04/24/2025 10:25 AM164 mg/dLNBlood chemistry[[id number]]?Glucose [Mass/volume] in Serum or Plasma [2345-7]04/24/2025 08:27 AM161 mg/dLNBlood chemistry[[id number]]?Glucose [Mass/volume] in Serum or Plasma [2345-7] 04/23/2025 03:40 PM249 mg/dLNBlood chemistry[[id number]]?Glucose [Mass/volume] in Serum or Plasma [2345-7]04/23/2025 01:48 PM137 mg/dLNBlood chemistry[[id number]]?Glucose [Mass/volume] in Serum or Plasma [2345-7] 04/23/2025 08:37 AM174 mg/dLNBlood chemistry[[id number]]?Glucose [Mass/volume] in Serum or Plasma [2345-7]04/23/2025 07:46 AM213 mg/dLNBlood chemistry[[id number]]?Glucose [Mass/volume] in Serum or Plasma [2345-7] 04/22/2025 02:21 PM255 mg/dLNBlood chemistry[[id number]]?Glucose [Mass/volume] in Serum or Plasma [2345-7]04/22/2025 12:27 PM240 mg/dLNBlood chemistry[[id number]]?Glucose [Mass/volume] in Serum or Plasma [2345-7] 04/22/2025 09:22 AM354 mg/dLNBlood chemistry[[id number]]?Glucose [Mass/volume] in Serum or Plasma [2345-7]04/22/2025 07:57 AM147 mg/dLNBlood chemistry[[id number]]?Glucose [Mass/volume] in Serum or Plasma [2345-7] 04/21/2025 03:29 PM186 mg/dLNBlood chemistry[[id number]]?Glucose [Mass/volume] in Serum or Plasma [2345-7]04/21/2025 09:51 AM170 mg/dLNBlood chemistry[[id number]]?Glucose [Mass/volume] in Serum or Plasma [2345-7] 04/20/2025 01:46 PM216 mg/dLNBlood chemistry[[id number]]?Glucose [Mass/volume] in Serum or Plasma [2345-7]04/20/2025 01:17 PM234 mg/dLNBlood chemistry[[id number]]?Glucose [Mass/volume] in Serum or Plasma [2345-7] 04/20/2025 08:09 AM144 mg/dLNBlood chemistry[[id number]]?Glucose [Mass/volume] in Serum or Plasma [2345-7]04/20/2025 07:26 AM199 mg/dLNBlood chemistry[[id number]]?Glucose [Mass/volume] in Serum or Plasma [2345-7] 04/19/2025 03:26 PM194 mg/dLNBlood chemistry[[id number]]?Glucose [Mass/volume] in Serum or Plasma [2345-7]04/19/2025 02:47 PM134 mg/dLNBlood chemistry[[id number]]?Glucose [Mass/volume] in Serum or Plasma [2345-7] 04/19/2025 09:31 AM124 mg/dLNBlood chemistry[[id number]]?Glucose [Mass/volume] in Serum or Plasma [2345-7]04/19/2025 08:13 AM241 mg/dLNBlood chemistry[[id number]]?Glucose [Mass/volume] in Serum or Plasma [2345-7] 04/18/2025 03:12 PM139 mg/dLNBlood chemistry[[id number]]?Glucose [Mass/volume] in Serum or Plasma [2345-7]04/18/2025 01:22 PM177 mg/dLNBlood chemistry[[id number]]?Glucose [Mass/volume] in Serum or Plasma [2345-7] 04/18/2025 08:24 AM108 mg/dLNBlood chemistry[[id number]]?Glucose [Mass/volume] in Serum or Plasma [2345-7]04/18/2025 07:18 AM324 mg/dLNBlood chemistry[[id number]]?Glucose [Mass/volume] in Serum or Plasma [2345-7] 04/17/2025 03:01 PM198 mg/dLNBlood chemistry[[id number]]?Glucose [Mass/volume] in Serum or Plasma [2345-7]04/17/2025 01:00 PM181 mg/dLNBlood chemistry[[id number]]?Glucose [Mass/volume] in Serum or Plasma [2345-7] 04/17/2025 07:50 AM119 mg/dLNBlood chemistry[[id number]]?Glucose [Mass/volume] in Serum or Plasma [2345-7]04/17/2025 07:23 AM187 mg/dLNBlood chemistry[[id number]]?Glucose [Mass/volume] in Serum or Plasma [2345-7] 04/16/2025 01:39 PM199 mg/dLNBlood chemistry[[id number]]?Glucose [Mass/volume] in Serum or Plasma [2345-7]04/16/2025 12:47 PM153 mg/dLNBlood chemistry[[id number]]?Glucose [Mass/volume] in Serum or Plasma [2345-7] 04/16/2025 08:28 AM145 mg/dLNBlood chemistry[[id number]]?Glucose [Mass/volume] in Serum or Plasma [2345-7]04/16/2025 07:30 AM191 mg/dLNBlood chemistry[[id number]]?Glucose [Mass/volume] in Serum or Plasma [2345-7] 04/15/2025 03:34 PM218 mg/dLNBlood chemistry[[id number]]?Glucose [Mass/volume] in Serum or Plasma [2345-7]04/15/2025 12:56 PM172 mg/dLNBlood chemistry[[id number]]?Glucose [Mass/volume] in Serum or Plasma [2345-7] 04/15/2025 09:19 AM163 mg/dLNBlood chemistry[[id number]]?Glucose [Mass/volume] in Serum or Plasma [2345-7]04/15/2025 07:27 AM332 mg/dLNBlood chemistry[[id number]]?Glucose [Mass/volume] in Serum or Plasma [2345-7] 04/14/2025 03:27 PM140 mg/dLNBlood chemistry[[id number]]?Glucose [Mass/volume] in Serum or Plasma [2345-7]04/14/2025 01:02 PM139 mg/dLNBlood chemistry[[id number]]?Glucose [Mass/volume] in Serum or Plasma [2345-7] 04/14/2025 09:20 AM145 mg/dLNBlood chemistry[[id number]]?Glucose [Mass/volume] in Serum or Plasma [2345-7]04/14/2025 08:02 AM129 mg/dLNBlood chemistry[[id number]]?Glucose [Mass/volume] in Serum or Plasma [2345-7] 04/13/2025 01:29 PM213 mg/dLNBlood chemistry[[id number]]?Glucose [Mass/volume] in Serum or Plasma [2345-7]04/13/2025 01:12 PM287 mg/dLNBlood chemistry[[id number]]?Glucose [Mass/volume] in Serum or Plasma [2345-7] 04/13/2025 11:27 AM142 mg/dLNBlood chemistry[[id number]]?Glucose [Mass/volume] in Serum or Plasma [2345-7]04/13/2025 07:17 AM249 mg/dLNBlood chemistry[[id number]]?Glucose [Mass/volume] in Serum or Plasma [2345-7] 04/12/2025 03:41 PM248 mg/dLNBlood chemistry[[id number]]?Glucose [Mass/volume] in Serum or Plasma [2345-7]04/12/2025 12:29 PM153 mg/dLNBlood chemistry[[id number]]?Glucose [Mass/volume] in Serum or Plasma [2345-7] 04/12/2025 07:51 AM134 mg/dLNBlood chemistry[[id number]]?Glucose [Mass/volume] in Serum or Plasma [2345-7]04/12/2025 07:28 AM180 mg/dLNBlood chemistry[[id number]]?Glucose [Mass/volume] in Serum or Plasma [2345-7] 04/11/2025 02:27 PM165 mg/dLNBlood chemistry[[id number]]?Glucose [Mass/volume] in Serum or Plasma [2345-7]04/11/2025 11:34 AM325 mg/dLNBlood chemistry[[id number]]?Glucose [Mass/volume] in Serum or Plasma [2345-7] 04/11/2025 09:07 AM231 mg/dLNBlood chemistry[[id number]]?Glucose [Mass/volume] in Serum or Plasma [2345-7]04/11/2025 07:32 AM202 mg/dLNBlood chemistry[[id number]]?Glucose [Mass/volume] in Serum or Plasma [2345-7] 04/10/2025 03:23 PM163 mg/dLNBlood chemistry[[id number]]?Glucose [Mass/volume] in Serum or Plasma [2345-7]04/10/2025 02:18 PM154 mg/dLNBlood chemistry[[id number]]?Glucose [Mass/volume] in Serum or Plasma [2345-7] 04/10/2025 09:30 AM226 mg/dLNBlood chemistry[[id number]]?Glucose [Mass/volume] in Serum or Plasma [2345-7]04/10/2025 08:18 AM189 mg/dLNBlood chemistry[[id number]]?Glucose [Mass/volume] in Serum or Plasma [2345-7] 04/09/2025 03:10 PM241 mg/dLNBlood chemistry[[id number]]?Glucose [Mass/volume] in Serum or Plasma [2345-7]04/09/2025 01:50 PM113 mg/dLNBlood chemistry[[id number]]?Glucose [Mass/volume] in Serum or Plasma [2345-7] 04/09/2025 09:57 AM116 mg/dLNBlood chemistry[[id number]]?Glucose [Mass/volume] in Serum or Plasma [2345-7]04/09/2025 09:33 AM167 mg/dLNBlood chemistry[[id number]]?Glucose [Mass/volume] in Serum or Plasma [2345-7] 04/08/2025 01:37 PM202 mg/dLNBlood chemistry[[id number]]?Glucose [Mass/volume] in Serum or Plasma [2345-7]04/08/2025 12:36 PM191 mg/dLNBlood chemistry[[id number]]?Glucose [Mass/volume] in Serum or Plasma [2345-7] 04/08/2025 09:02 AM168 mg/dLNBlood chemistry[[id number]]?Glucose [Mass/volume] in Serum or Plasma [2345-7]04/08/2025 08:38 AM167 mg/dLNBlood chemistry[[id number]]?Glucose [Mass/volume] in Serum or Plasma [2345-7] 04/07/2025 03:32 PM175 mg/dLNBlood chemistry[[id number]]?Glucose [Mass/volume] in Serum or Plasma [2345-7]04/07/2025 01:18 PM193 mg/dLNBlood chemistry[[id number]]?Glucose [Mass/volume] in Serum or Plasma [2345-7] 04/07/2025 09:14 AM132 mg/dLNBlood chemistry[[id number]]?Glucose [Mass/volume] in Serum or Plasma [2345-7]04/07/2025 07:22 AM187 mg/dLNBlood chemistry[[id number]]?Glucose [Mass/volume] in Serum or Plasma [2345-7] 04/06/2025 03:06 PM145 mg/dLNBlood chemistry[[id number]]?Glucose [Mass/volume] in Serum or Plasma [2345-7]04/06/2025 11:39 AM158 mg/dLNBlood chemistry[[id number]]?Glucose [Mass/volume] in Serum or Plasma [2345-7] 04/06/2025 09:25 AM175 mg/dLNBlood chemistry[[id number]]?Glucose [Mass/volume] in Serum or Plasma [2345-7]04/06/2025 07:18 AM183 mg/dLNBlood chemistry[[id number]]?Glucose [Mass/volume] in Serum or Plasma [2345-7] 04/05/2025 03:28 PM186 mg/dLNBlood chemistry[[id number]]?Glucose [Mass/volume] in Serum or Plasma [2345-7]04/05/2025 01:21 PM134 mg/dLNBlood chemistry[[id number]]?Glucose [Mass/volume] in Serum or Plasma [2345-7] 04/05/2025 09:17 AM157 mg/dLNBlood chemistry[[id number]]?Glucose [Mass/volume] in Serum or Plasma [2345-7]04/05/2025 09:13 AM132 mg/dLNBlood chemistry[[id number]]?Glucose [Mass/volume] in Serum or Plasma [2345-7] 04/04/2025 03:10 PM162 mg/dLNBlood chemistry[[id number]]?Glucose [Mass/volume] in Serum or Plasma [2345-7]04/04/2025 01:08 PM156 mg/dLNBlood chemistry[[id number]]?Glucose [Mass/volume] in Serum or Plasma [2345-7] 04/04/2025 10:37 AM124 mg/dLNBlood chemistry[[id number]]?Glucose [Mass/volume] in Serum or Plasma [2345-7]04/04/2025 07:18 AM314 mg/dLNBlood chemistry[[id number]]?Glucose [Mass/volume] in Serum or Plasma [2345-7] 04/03/2025 02:15 PM186 mg/dLNBlood chemistry[[id number]]?Glucose [Mass/volume] in Serum or Plasma [2345-7]04/03/2025 12:51 PM143 mg/dLNBlood chemistry[[id number]]?Glucose [Mass/volume] in Serum or Plasma [2345-7] 04/03/2025 07:47 AM140 mg/dLNBlood chemistry[[id number]]?Glucose [Mass/volume] in Serum or Plasma [2345-7]04/03/2025 07:22 AM224 mg/dLNBlood chemistry[[id number]]?Glucose [Mass/volume] in Serum or Plasma [[facility]] 04/02/2025 12:20 PM193 mg/dLNBlood chemistry[[id number]]?Glucose [Mass/volume] in Serum or Plasma [[facility]]02/28/2025 07:25 AM177 mg/dLNBlood chemistry[[id number]]?Glucose [Mass/volume] in Serum or Plasma [[facility]] 02/28/2025 03:49 PM222 mg/dLNBlood chemistry[[id number]]?Glucose [Mass/volume] in Serum or Plasma [[facility]]02/28/2025 09:05 AM136 mg/dLNBlood chemistry[[id number]]?Glucose [Mass/volume] in Serum or Plasma [[facility]] 02/27/2025 12:53 PM125 mg/dLNBlood chemistry[[id number]]?Glucose [Mass/volume] in Serum or Plasma [[facility]]02/27/2025 09:55 AM146 mg/dLNBlood chemistry[[id number]]?Glucose [Mass/volume] in Serum or Plasma [[facility]] 02/27/2025 03:48 PM142 mg/dLNBlood chemistry[[id number]]?Glucose [Mass/volume] in Serum or Plasma [[facility]]02/27/2025 09:28 AM129 mg/dLNBlood chemistry[[id number]]?Glucose [Mass/volume] in Serum or Plasma [[facility]] 02/26/2025 12:48 PM132 mg/dLNBlood chemistry[[id number]]?Glucose [Mass/volume] in Serum or Plasma [[facility]]02/26/2025 08:26 AM143 mg/dLNBlood chemistry[[id number]]?Glucose [Mass/volume] in Serum or Plasma [2345-7] 02/26/2025 03:23 PM206 mg/dLNBlood chemistry[[id number]]?Glucose [Mass/volume] in Serum or Plasma [2345-7]02/26/2025 10:12 AM111 mg/dLNBlood chemistry[[id number]]?Glucose [Mass/volume] in Serum or Plasma [2345-7] 02/25/2025 02:57 PM138 mg/dLNBlood chemistry[[id number]]?Glucose [Mass/volume] in Serum or Plasma [[facility]]02/25/2025 09:33 AM187 mg/dLNBlood chemistry[[id number]]?Glucose [Mass/volume] in Serum or Plasma [[facility]] 02/25/2025 01:41 PM198 mg/dLNBlood chemistry[[id number]]?Glucose [Mass/volume] in Serum or Plasma [[facility]]02/25/2025 09:35 AM112 mg/dLNBlood chemistry[[id number]]?Glucose [Mass/volume] in Serum or Plasma [[facility]] 02/24/2025 02:46 PM115 mg/dLNBlood chemistry[[id number]]?Glucose [Mass/volume] in Serum or Plasma [2345-7]02/24/2025 08:46 AM137 mg/dLNBlood chemistry[[id number]]?Glucose [Mass/volume] in Serum or Plasma [2345-7] 02/24/2025 03:19 PM144 mg/dLNBlood chemistry[[id number]]?Glucose [Mass/volume] in Serum or Plasma [[facility]]02/24/2025 09:06 AM120 mg/dLNBlood chemistry[[id number]]?Glucose [Mass/volume] in Serum or Plasma [2345-7] 02/23/2025 02:03 PM132 mg/dLNBlood chemistry[[id number]]?Glucose [Mass/volume] in Serum or Plasma [2345-7]02/23/2025 09:18 AM145 mg/dLNBlood chemistry[[id number]]?Glucose [Mass/volume] in Serum or Plasma [2345-7] 02/23/2025 02:30 PM202 mg/dLNBlood chemistry[[id number]]?Glucose [Mass/volume] in Serum or Plasma [2345-7]02/23/2025 09:10 AM136 mg/dLNBlood chemistry[[id number]]?Glucose [Mass/volume] in Serum or Plasma [2345-7] 02/22/2025 10:06 AM210 mg/dLNBlood chemistry[[id number]]?Glucose [Mass/volume] in Serum or Plasma [2345-7]02/22/2025 07:26 AM386 mg/dLNBlood chemistry[[id number]]?Glucose [Mass/volume] in Serum or Plasma [2345-7] 02/22/2025 03:36 PM175 mg/dLNBlood chemistry[[id number]]?Glucose [Mass/volume] in Serum or Plasma [2345-7]02/22/2025 09:44 AM121 mg/dLNBlood chemistry[[id number]]?Glucose [Mass/volume] in Serum or Plasma [2345-7] 02/21/2025 12:50 PM148 mg/dLNBlood chemistry[[id number]]?Glucose [Mass/volume] in Serum or Plasma [2345-7]02/21/2025 08:20 AM233 mg/dLNBlood chemistry[[id number]]?Glucose [Mass/volume] in Serum or Plasma [2345-7] 02/21/2025 03:02 PM321 mg/dLNBlood chemistry[[id number]]?Glucose [Mass/volume] in Serum or Plasma [2345-7]02/21/2025 09:55 AM125 mg/dLNBlood chemistry[[id number]]?Glucose [Mass/volume] in Serum or Plasma [2345-7] 02/20/2025 12:26 PM163 mg/dLNBlood chemistry[[id number]]?Glucose [Mass/volume] in Serum or Plasma [2345-7]02/20/2025 08:02 AM233 mg/dLNBlood chemistry[[id number]]?Glucose [Mass/volume] in Serum or Plasma [2345-7] 02/20/2025 02:59 PM133 mg/dLNBlood chemistry[[id number]]?Glucose [Mass/volume] in Serum or Plasma [2345-7]02/20/2025 10:28 AM107 mg/dLNBlood chemistry[[id number]]?Glucose [Mass/volume] in Serum or Plasma [2345-7] 02/19/2025 01:03 PM187 mg/dLNBlood chemistry[[id number]]?Glucose [Mass/volume] in Serum or Plasma [2345-7]02/19/2025 07:17 AM183 mg/dLNBlood chemistry[[id number]]?Glucose [Mass/volume] in Serum or Plasma [2345-7] 02/19/2025 02:06 PM151 mg/dLNBlood chemistry[[id number]]?Glucose [Mass/volume] in Serum or Plasma [2345-7]02/19/2025 09:17 AM126 mg/dLNBlood chemistry[[id number]]?Glucose [Mass/volume] in Serum or Plasma [2345-7] 02/18/2025 01:46 PM127 mg/dLNBlood chemistry[[id number]]?Glucose [Mass/volume] in Serum or Plasma [2345-7]02/18/2025 08:49 AM144 mg/dLNBlood chemistry[[id number]]?Glucose [Mass/volume] in Serum or Plasma [2345-7] 02/18/2025 03:34 PM142 mg/dLNBlood chemistry[[id number]]?Glucose [Mass/volume] in Serum or Plasma [2345-7]02/18/2025 08:50 AM118 mg/dLNBlood chemistry[[id number]]?Glucose [Mass/volume] in Serum or Plasma [2345-7] 02/17/2025 12:33 PM157 mg/dLNBlood chemistry[[id number]]?Glucose [Mass/volume] in Serum or Plasma [2345-7]02/17/2025 09:01 AM190 mg/dLNBlood chemistry[[id number]]?Glucose [Mass/volume] in Serum or Plasma [2345-7] 02/17/2025 03:15 PM193 mg/dLNBlood chemistry[[id number]]?Glucose [Mass/volume] in Serum or Plasma [2345-7]02/17/2025 09:04 AM118 mg/dLNBlood chemistry[[id number]]?Glucose [Mass/volume] in Serum or Plasma [2345-7] 02/16/2025 01:33 PM130 mg/dLNBlood chemistry[[id number]]?Glucose [Mass/volume] in Serum or Plasma [2345-7]02/16/2025 07:13 AM186 mg/dLNBlood chemistry[[id number]]?Glucose [Mass/volume] in Serum or Plasma [2345-7] 02/16/2025 01:41 PM175 mg/dLNBlood chemistry[[id number]]?Glucose [Mass/volume] in Serum or Plasma [2345-7]02/16/2025 09:00 AM115 mg/dLNBlood chemistry[[id number]]?Glucose [Mass/volume] in Serum or Plasma [2345-7] 02/15/2025 10:12 AM219 mg/dLNBlood chemistry[[id number]]?Glucose [Mass/volume] in Serum or Plasma [2345-7]02/15/2025 08:51 AM235 mg/dLNBlood chemistry[[id number]]?Glucose [Mass/volume] in Serum or Plasma [2345-7] 02/15/2025 03:20 PM209 mg/dLNBlood chemistry[[id number]]?Glucose [Mass/volume] in Serum or Plasma [2345-7]02/15/2025 09:54 AM135 mg/dLNBlood chemistry[[id number]]?Glucose [Mass/volume] in Serum or Plasma [2345-7] 02/14/2025 12:57 PM121 mg/dLNBlood chemistry[[id number]]?Glucose [Mass/volume] in Serum or Plasma [2345-7]02/14/2025 09:35 AM157 mg/dLNBlood chemistry[[id number]]?Glucose [Mass/volume] in Serum or Plasma [2345-7] 02/14/2025 03:32 PM147 mg/dLNBlood chemistry[[id number]]?Glucose [Mass/volume] in Serum or Plasma [2345-7]02/14/2025 09:18 AM122 mg/dLNBlood chemistry[[id number]]?Glucose [Mass/volume] in Serum or Plasma [2345-7] 02/13/2025 01:41 PM143 mg/dLNBlood chemistry[[id number]]?Glucose [Mass/volume] in Serum or Plasma [2345-7]02/13/2025 03:09 PM157 mg/dLNBlood chemistry[[id number]]?Glucose [Mass/volume] in Serum or Plasma [2345-7] 02/13/2025 09:09 AM133 mg/dLNBlood chemistry[[id number]]?Glucose [Mass/volume] in Serum or Plasma [2345-7]02/12/2025 01:04 PM143 mg/dLNBlood chemistry[[id number]]?Glucose [Mass/volume] in Serum or Plasma [[facility]] 02/12/2025 09:11 AM176 mg/dLNBlood chemistry[[id number]]?Glucose [Mass/volume] in Serum or Plasma [2345-7]02/12/2025 03:09 PM115 mg/dLNBlood chemistry[[id number]]?Glucose [Mass/volume] in Serum or Plasma [2345-7] 02/12/2025 10:16 AM109 mg/dLNBlood chemistry[[id number]]?Glucose [Mass/volume] in Serum or Plasma [2345-7]02/11/2025 07:23 AM183 mg/dLNBlood chemistry[[id number]]?Glucose [Mass/volume] in Serum or Plasma [2345-7] 02/11/2025 02:28 PM158 mg/dLNBlood chemistry[[id number]]?Glucose [Mass/volume] in Serum or Plasma [2345-7]02/11/2025 10:13 AM110 mg/dLNBlood chemistry[[id number]]?Glucose [Mass/volume] in Serum or Plasma [2345-7] 02/10/2025 12:41 PM184 mg/dLNBlood chemistry[[id number]]?Glucose [Mass/volume] in Serum or Plasma [2345-7]02/10/2025 10:18 AM156 mg/dLNBlood chemistry[[id number]]?Glucose [Mass/volume] in Serum or Plasma [2345-7] 02/10/2025 03:03 PM181 mg/dLNBlood chemistry[[id number]]?Glucose [Mass/volume] in Serum or Plasma [2345-7]02/10/2025 10:43 AM127 mg/dLNBlood chemistry[[id number]]?Glucose [Mass/volume] in Serum or Plasma [2345-7] 02/09/2025 12:46 PM141 mg/dLNBlood chemistry[[id number]]?Glucose [Mass/volume] in Serum or Plasma [2345-7]02/09/2025 09:42 AM137 mg/dLNBlood chemistry[[id number]]?Glucose [Mass/volume] in Serum or Plasma [2345-7] 02/09/2025 03:25 PM134 mg/dLNBlood chemistry[[id number]]?Glucose [Mass/volume] in Serum or Plasma [2345-7]02/09/2025 09:15 AM122 mg/dLNBlood chemistry[[id number]]?Glucose [Mass/volume] in Serum or Plasma [2345-7] 02/08/2025 01:58 PM225 mg/dLNBlood chemistry[[id number]]?Glucose [Mass/volume] in Serum or Plasma [2345-7]02/08/2025 07:28 AM216 mg/dLNBlood chemistry[[id number]]?Glucose [Mass/volume] in Serum or Plasma [2345-7] 02/08/2025 03:21 PM171 mg/dLNBlood chemistry[[id number]]?Glucose [Mass/volume] in Serum or Plasma [2345-7]02/08/2025 09:50 AM115 mg/dLNBlood chemistry[[id number]]?Glucose [Mass/volume] in Serum or Plasma [2345-7] 02/07/2025 01:15 PM136 mg/dLNBlood chemistry[[id number]]?Glucose [Mass/volume] in Serum or Plasma [2345-7]02/07/2025 08:58 AM148 mg/dLNBlood chemistry[[id number]]?Glucose [Mass/volume] in Serum or Plasma [2345-7] 02/07/2025 03:33 PM200 mg/dLNBlood chemistry[[id number]]?Glucose [Mass/volume] in Serum or Plasma [2345-7]02/07/2025 09:22 AM135 mg/dLNBlood chemistry[[id number]]?Glucose [Mass/volume] in Serum or Plasma [2345-7] 02/06/2025 10:23 AM207 mg/dLNBlood chemistry[[id number]]?Glucose [Mass/volume] in Serum or Plasma [2345-7]02/06/2025 07:33 AM186 mg/dLNBlood chemistry[[id number]]?Glucose [Mass/volume] in Serum or Plasma [2345-7] 02/06/2025 03:54 PM146 mg/dLNBlood chemistry[[id number]]?Glucose [Mass/volume] in Serum or Plasma [2345-7]02/06/2025 09:48 AM148 mg/dLNBlood chemistry[[id number]]?Glucose [Mass/volume] in Serum or Plasma [2345-7] 02/05/2025 10:45 AM211 mg/dLNBlood chemistry[[id number]]?Glucose [Mass/volume] in Serum or Plasma [2345-7]02/05/2025 03:58 PM151 mg/dLNBlood chemistry[[id number]]?Glucose [Mass/volume] in Serum or Plasma [2345-7] 02/05/2025 03:59 PM151 mg/dLNBlood chemistry[[id number]]?Glucose [Mass/volume] in Serum or Plasma [2345-7]02/05/2025 09:14 AM127 mg/dLNBlood chemistry[[id number]]?Glucose [Mass/volume] in Serum or Plasma [2345-7] 02/04/2025 01:12 PM147 mg/dLNBlood chemistry[[id number]]?Glucose [Mass/volume] in Serum or Plasma [2345-7]02/04/2025 08:12 AM137 mg/dLNBlood chemistry[[id number]]?Glucose [Mass/volume] in Serum or Plasma [2345-7] 02/04/2025 03:15 PM148 mg/dLNBlood chemistry[[id number]]?Glucose [Mass/volume] in Serum or Plasma [2345-7]02/04/2025 09:29 AM141 mg/dLNBlood chemistry[[id number]]?Glucose [Mass/volume] in Serum or Plasma [2345-7] 02/03/2025 12:16 PM148 mg/dLNBlood chemistry[[id number]]?Glucose [Mass/volume] in Serum or Plasma [2345-7]02/03/2025 09:04 AM168 mg/dLNBlood chemistry[[id number]]?Glucose [Mass/volume] in Serum or Plasma [2345-7] 02/03/2025 03:36 PM144 mg/dLNBlood chemistry[[id number]]?Glucose [Mass/volume] in Serum or Plasma [2345-7]02/03/2025 09:01 AM126 mg/dLNBlood chemistry[[id number]]?Glucose [Mass/volume] in Serum or Plasma [2345-7] 02/02/2025 01:04 PM184 mg/dLNBlood chemistry[[id number]]?Glucose [Mass/volume] in Serum or Plasma [2345-7]02/02/2025 09:31 AM147 mg/dLNBlood chemistry[[id number]]?Glucose [Mass/volume] in Serum or Plasma [2345-7] 02/02/2025 01:46 PM160 mg/dLNBlood chemistry[[id number]]?Glucose [Mass/volume] in Serum or Plasma [2345-7]02/02/2025 09:05 AM126 mg/dLNBlood chemistry[[id number]]?Glucose [Mass/volume] in Serum or Plasma [2345-7] 02/01/2025 12:58 PM143 mg/dLNBlood chemistry[[id number]]?Glucose [Mass/volume] in Serum or Plasma [2345-7]02/01/2025 07:17 AM185 mg/dLNBlood chemistry[[id number]]?Glucose [Mass/volume] in Serum or Plasma [2345-7] 02/01/2025 03:22 PM145 mg/dLNBlood chemistry[[id number]]?Glucose [Mass/volume] in Serum or Plasma [2345-7]02/01/2025 09:57 AM112 mg/dLNBlood chemistry[[id number]]?Glucose [Mass/volume] in Serum or Plasma [2345-7] 01/31/2025 10:43 AM119 mg/dLNBlood chemistry[[id number]]?Glucose [Mass/volume] in Serum or Plasma [2345-7]01/31/2025 07:25 AM260 mg/dLNBlood chemistry[[id number]]?Glucose [Mass/volume] in Serum or Plasma [2345-7] 01/31/2025 01:48 PM221 mg/dLNBlood chemistry[[id number]]?Glucose [Mass/volume] in Serum or Plasma [2345-7]01/31/2025 09:14 AM128 mg/dLNBlood chemistry[[id number]]?Glucose [Mass/volume] in Serum or Plasma [2345-7] 01/30/2025 01:00 PM152 mg/dLNBlood chemistry[[id number]]?Glucose [Mass/volume] in Serum or Plasma [2345-7]01/30/2025 09:03 AM272 mg/dLNBlood chemistry[[id number]]?Glucose [Mass/volume] in Serum or Plasma [2345-7] 01/30/2025 03:15 PM215 mg/dLNBlood chemistry[[id number]]?Glucose [Mass/volume] in Serum or Plasma [2345-7]01/30/2025 09:08 AM152 mg/dLNBlood chemistry[[id number]]?Glucose [Mass/volume] in Serum or Plasma [2345-7] 01/29/2025 01:25 PM167 mg/dLNBlood chemistry[[id number]]?Glucose [Mass/volume] in Serum or Plasma [2345-7]01/29/2025 07:53 AM192 mg/dLNBlood chemistry[[id number]]?Glucose [Mass/volume] in Serum or Plasma [2345-7] 01/29/2025 03:24 PM224 mg/dLNBlood chemistry[[id number]]?Glucose [Mass/volume] in Serum or Plasma [2345-7]01/29/2025 10:44 AM143 mg/dLNBlood chemistry[[id number]]?Glucose [Mass/volume] in Serum or Plasma [2345-7] 01/28/2025 12:47 PM152 mg/dLNBlood chemistry[[id number]]?Glucose [Mass/volume] in Serum or Plasma [2345-7]01/28/2025 08:46 AM147 mg/dLNBlood chemistry[[id number]]?Glucose [Mass/volume] in Serum or Plasma [2345-7] 01/28/2025 02:23 PM137 mg/dLNBlood chemistry[[id number]]?Glucose [Mass/volume] in Serum or Plasma [2345-7]01/28/2025 09:38 AM108 mg/dLNBlood chemistry[[id number]]?Glucose [Mass/volume] in Serum or Plasma [2345-7] 01/27/2025 12:47 PM141 mg/dLNBlood chemistry[[id number]]?Glucose [Mass/volume] in Serum or Plasma [2345-7]01/27/2025 07:21 AM211 mg/dLNBlood chemistry[[id number]]?Glucose [Mass/volume] in Serum or Plasma [2345-7] 01/27/2025 03:17 PM215 mg/dLNBlood chemistry[[id number]]?Glucose [Mass/volume] in Serum or Plasma [2345-7]01/27/2025 09:17 AM133 mg/dLNBlood chemistry[[id number]]?Glucose [Mass/volume] in Serum or Plasma [2345-7] 01/26/2025 01:30 PM154 mg/dLNBlood chemistry[[id number]]?Glucose [Mass/volume] in Serum or Plasma [2345-7]01/26/2025 01:31 PM162 mg/dLNBlood chemistry[[id number]]?Glucose [Mass/volume] in Serum or Plasma [2345-7] 01/26/2025 08:55 AM134 mg/dLNBlood chemistry[[id number]]?Glucose [Mass/volume] in Serum or Plasma [2345-7]01/26/2025 09:08 AM185 mg/dLNBlood chemistry[[id number]]?Glucose [Mass/volume] in Serum or Plasma [2345-7] 01/25/2025 12:33 PM134 mg/dLNBlood chemistry[[id number]]?Glucose [Mass/volume] in Serum or Plasma [2345-7]01/25/2025 09:02 AM176 mg/dLNBlood chemistry[[id number]]?Glucose [Mass/volume] in Serum or Plasma [2345-7] 01/25/2025 03:22 PM126 mg/dLNBlood chemistry[[id number]]?Glucose [Mass/volume] in Serum or Plasma [2345-7]01/25/2025 09:05 AM143 mg/dLNBlood chemistry[[id number]]?Glucose [Mass/volume] in Serum or Plasma [2345-7] 01/24/2025 01:44 PM167 mg/dLNBlood chemistry[[id number]]?Glucose [Mass/volume] in Serum or Plasma [2345-7]01/24/2025 08:08 AM167 mg/dLNBlood chemistry[[id number]]?Glucose [Mass/volume] in Serum or Plasma [2345-7] 01/24/2025 03:13 PM142 mg/dLNBlood chemistry[[id number]]?Glucose [Mass/volume] in Serum or Plasma [2345-7]01/24/2025 08:11 AM130 mg/dLNBlood chemistry[[id number]]?Glucose [Mass/volume] in Serum or Plasma [2345-7] 01/23/2025 08:26 AM145 mg/dLNBlood chemistry[[id number]]?Glucose [Mass/volume] in Serum or Plasma [2345-7]01/23/2025 02:10 PM163 mg/dLNBlood chemistry[[id number]]?Glucose [Mass/volume] in Serum or Plasma [2345-7] 01/23/2025 09:46 AM125 mg/dLNBlood chemistry[[id number]]?Glucose [Mass/volume] in Serum or Plasma [2345-7]01/22/2025 02:13 PM172 mg/dLNBlood chemistry[[id number]]?Glucose [Mass/volume] in Serum or Plasma [2345-7] 01/22/2025 07:56 AM147 mg/dLNBlood chemistry[[id number]]?Glucose [Mass/volume] in Serum or Plasma [2345-7]01/22/2025 02:04 PM144 mg/dLNBlood chemistry[[id number]]?Glucose [Mass/volume] in Serum or Plasma [2345-7] 01/22/2025 09:02 AM137 mg/dLNBlood chemistry[[id number]]?Glucose [Mass/volume] in Serum or Plasma [2345-7]01/21/2025 12:51 PM134 mg/dLNBlood chemistry[[id number]]?Glucose [Mass/volume] in Serum or Plasma [2345-7] 01/21/2025 04:56 PM148 mg/dLNBlood chemistry[[id number]]?Glucose [Mass/volume] in Serum or Plasma [2345-7]01/21/2025 08:09 AM174 mg/dLNBlood chemistry[[id number]]?Glucose [Mass/volume] in Serum or Plasma [2345-7] 01/21/2025 10:30 AM142 mg/dLNBlood chemistry[[id number]]?Glucose [Mass/volume] in Serum or Plasma [2345-7]01/20/2025 12:58 PM146 mg/dLNBlood chemistry[[id number]]?Glucose [Mass/volume] in Serum or Plasma [2345-7] 01/20/2025 10:46 AM218 mg/dLNBlood chemistry[[id number]]?Glucose [Mass/volume] in Serum or Plasma [2345-7]01/20/2025 03:56 PM206 mg/dLNBlood chemistry[[id number]]?Glucose [Mass/volume] in Serum or Plasma [2345-7] 01/20/2025 10:19 AM137 mg/dLNBlood chemistry[[id number]]?Glucose [Mass/volume] in Serum or Plasma [2345-7]01/19/2025 02:07 PM194 mg/dLNBlood chemistry[[id number]]?Glucose [Mass/volume] in Serum or Plasma [2345-7] 01/19/2025 07:17 AM205 mg/dLNBlood chemistry[[id number]]?Glucose [Mass/volume] in Serum or Plasma [2345-7]01/19/2025 01:48 PM159 mg/dLNBlood chemistry[[id number]]?Glucose [Mass/volume] in Serum or Plasma [2345-7] 01/19/2025 09:13 AM151 mg/dLNBlood chemistry[[id number]]?Glucose [Mass/volume] in Serum or Plasma [2345-7]01/18/2025 09:58 AM279 mg/dLNBlood chemistry[[id number]]?Glucose [Mass/volume] in Serum or Plasma [2345-7] 01/18/2025 07:19 AM153 mg/dLNBlood chemistry[[id number]]?Glucose [Mass/volume] in Serum or Plasma [2345-7]01/18/2025 03:17 PM151 mg/dLNBlood chemistry[[id number]]?Glucose [Mass/volume] in Serum or Plasma [2345-7] 01/18/2025 09:33 AM125 mg/dLNBlood chemistry[[id number]]?Glucose [Mass/volume] in Serum or Plasma [2345-7]01/17/2025 02:38 PM138 mg/dLNBlood chemistry[[id number]]?Glucose [Mass/volume] in Serum or Plasma [2345-7] 01/17/2025 07:37 AM140 mg/dLNBlood chemistry[[id number]]?Glucose [Mass/volume] in Serum or Plasma [2345-7]01/17/2025 02:10 PM163 mg/dLNBlood chemistry[[id number]]?Glucose [Mass/volume] in Serum or Plasma [2345-7] 01/16/2025 12:40 PM143 mg/dLNBlood chemistry[[id number]]?Glucose [Mass/volume] in Serum or Plasma [2345-7]01/16/2025 08:16 AM139 mg/dLNBlood chemistry[[id number]]?Glucose [Mass/volume] in Serum or Plasma [2345-7] 01/16/2025 03:46 PM144 mg/dLNBlood chemistry[[id number]]?Glucose [Mass/volume] in Serum or Plasma [2345-7]01/16/2025 10:40 AM179 mg/dLNBlood chemistry[[id number]]?Glucose [Mass/volume] in Serum or Plasma [2345-7] 01/15/2025 02:07 PM178 mg/dLNBlood chemistry[[id number]]?Glucose [Mass/volume] in Serum or Plasma [2345-7]01/15/2025 09:23 AM215 mg/dLNBlood chemistry[[id number]]?Glucose [Mass/volume] in Serum or Plasma [2345-7] 01/15/2025 03:41 PM261 mg/dLNBlood chemistry[[id number]]?Glucose [Mass/volume] in Serum or Plasma [2345-7]01/15/2025 10:08 AM136 mg/dLNBlood chemistry[[id number]]?Glucose [Mass/volume] in Serum or Plasma [2345-7] 01/14/2025 10:35 AM225 mg/dLNBlood chemistry[[id number]]?Glucose [Mass/volume] in Serum or Plasma [2345-7]01/14/2025 09:24 AM182 mg/dLNBlood chemistry[[id number]]?Glucose [Mass/volume] in Serum or Plasma [2345-7] 01/14/2025 01:54 PM156 mg/dLNBlood chemistry[[id number]]?Glucose [Mass/volume] in Serum or Plasma [2345-7]01/14/2025 09:55 AM104 mg/dLNBlood chemistry[[id number]]?Glucose [Mass/volume] in Serum or Plasma [2345-7] 01/13/2025 07:25 AM197 mg/dLNBlood chemistry[[id number]]?Glucose [Mass/volume] in Serum or Plasma [2345-7]01/13/2025 03:20 PM159 mg/dLNBlood chemistry[[id number]]?Glucose [Mass/volume] in Serum or Plasma [2345-7] 01/13/2025 09:44 AM109 mg/dLNBlood chemistry[[id number]]?Glucose [Mass/volume] in Serum or Plasma [2345-7]01/12/2025 03:05 PM216 mg/dLNBlood chemistry[[id number]]?Glucose [Mass/volume] in Serum or Plasma [2345-7] 01/12/2025 08:04 AM148 mg/dLNBlood chemistry[[id number]]?Glucose [Mass/volume] in Serum or Plasma [2345-7]01/12/2025 02:01 PM172 mg/dLNBlood chemistry[[id number]]?Glucose [Mass/volume] in Serum or Plasma [2345-7] 01/12/2025 09:18 AM131 mg/dLNBlood chemistry[[id number]]?Glucose [Mass/volume] in Serum or Plasma [2345-7]01/11/2025 01:22 PM166 mg/dLNBlood chemistry[[id number]]?Glucose [Mass/volume] in Serum or Plasma [2345-7] 01/11/2025 09:00 AM146 mg/dLNBlood chemistry[[id number]]?Glucose [Mass/volume] in Serum or Plasma [2345-7]01/11/2025 03:22 PM215 mg/dLNBlood chemistry[[id number]]?Glucose [Mass/volume] in Serum or Plasma [2345-7] 01/11/2025 10:19 AM157 mg/dLNBlood chemistry[[id number]]?Glucose [Mass/volume] in Serum or Plasma [2345-7]01/10/2025 12:47 PM158 mg/dLNBlood chemistry[[id number]]?Glucose [Mass/volume] in Serum or Plasma [2345-7] 01/10/2025 08:50 AM137 mg/dLNBlood chemistry[[id number]]?Glucose [Mass/volume] in Serum or Plasma [2345-7]01/10/2025 03:19 PM194 mg/dLNBlood chemistry[[id number]]?Glucose [Mass/volume] in Serum or Plasma [2345-7] 01/10/2025 09:30 AM112 mg/dLNBlood chemistry[[id number]]?Glucose [Mass/volume] in Serum or Plasma [2345-7]01/09/2025 01:38 PM125 mg/dLNBlood chemistry[[id number]]?Glucose [Mass/volume] in Serum or Plasma [2345-7] 01/09/2025 08:05 AM146 mg/dLNBlood chemistry[[id number]]?Glucose [Mass/volume] in Serum or Plasma [2345-7]01/09/2025 02:54 PM160 mg/dLNBlood chemistry[[id number]]?Glucose [Mass/volume] in Serum or Plasma [2345-7] 01/09/2025 09:38 AM88 mg/dLNBlood chemistry[[id number]]?Glucose [Mass/volume] in Serum or Plasma [2345-7]01/08/2025 01:46 PM144 mg/dLNBlood chemistry[[id number]]?Glucose [Mass/volume] in Serum or Plasma [2345-7] 01/08/2025 07:35 AM165 mg/dLNBlood chemistry[[id number]]?Glucose [Mass/volume] in Serum or Plasma [2345-7]01/08/2025 03:17 PM203 mg/dLNBlood chemistry[[id number]]?Glucose [Mass/volume] in Serum or Plasma [2345-7] 01/08/2025 09:28 AM114 mg/dLNBlood chemistry[[id number]]?Glucose [Mass/volume] in Serum or Plasma [2345-7]01/07/2025 01:45 PM197 mg/dLNBlood chemistry[[id number]]?Glucose [Mass/volume] in Serum or Plasma [2345-7] 01/07/2025 08:45 AM164 mg/dLNBlood chemistry[[id number]]?Glucose [Mass/volume] in Serum or Plasma [2345-7]01/07/2025 03:38 PM188 mg/dLNBlood chemistry[[id number]]?Glucose [Mass/volume] in Serum or Plasma [2345-7] 01/07/2025 08:36 AM98 mg/dLNBlood chemistry[[id number]]?Glucose [Mass/volume] in Serum or Plasma [2345-7]01/06/2025 02:17 PM115 mg/dLNBlood chemistry[[id number]]?Glucose [Mass/volume] in Serum or Plasma [2345-7] 01/06/2025 08:09 AM146 mg/dLNBlood chemistry[[id number]]?Glucose [Mass/volume] in Serum or Plasma [2345-7]01/06/2025 02:58 PM188 mg/dLNBlood chemistry[[id number]]?Glucose [Mass/volume] in Serum or Plasma [2345-7] 01/06/2025 09:46 AM157 mg/dLNBlood chemistry[[id number]]?Glucose [Mass/volume] in Serum or Plasma [2345-7]01/05/2025 01:06 PM167 mg/dLNBlood chemistry[[id number]]?Glucose [Mass/volume] in Serum or Plasma [2345-7] 01/05/2025 08:27 AM148 mg/dLNBlood chemistry[[id number]]?Glucose [Mass/volume] in Serum or Plasma [2345-7]01/05/2025 02:44 PM194 mg/dLNBlood chemistry[[id number]]?Glucose [Mass/volume] in Serum or Plasma [2345-7] 01/05/2025 10:36 AM123 mg/dLNBlood chemistry[[id number]]?Glucose [Mass/volume] in Serum or Plasma [2345-7]01/04/2025 03:20 PM160 mg/dLNBlood chemistry[[id number]]?Glucose [Mass/volume] in Serum or Plasma [2345-7] 01/04/2025 07:24 AM172 mg/dLNBlood chemistry[[id number]]?Glucose [Mass/volume] in Serum or Plasma [2345-7]01/04/2025 09:34 AM128 mg/dLNBlood chemistry[[id number]]?Glucose [Mass/volume] in Serum or Plasma [2345-7] 01/03/2025 12:41 PM201 mg/dLNBlood chemistry[[id number]]?Glucose [Mass/volume] in Serum or Plasma [2345-7]01/03/2025 02:00 PM208 mg/dLNBlood chemistry[[id number]]?Glucose [Mass/volume] in Serum or Plasma [2345-7] 01/03/2025 08:44 AM131 mg/dLNBlood chemistry[[id number]]?Glucose [Mass/volume] in Serum or Plasma [2345-7]01/03/2025 10:18 AM92 mg/dLNBlood chemistry[[id number]]?Glucose [Mass/volume] in Serum or Plasma [2345-7] 01/02/2025 02:31 PM201 mg/dLNBlood chemistry[[id number]]?Glucose [Mass/volume] in Serum or Plasma [2345-7]01/02/2025 07:29 AM146 mg/dLNBlood chemistry[[id number]]?Glucose [Mass/volume] in Serum or Plasma [2345-7] 01/02/2025 03:38 PM157 mg/dLNBlood chemistry[[id number]]?Glucose [Mass/volume] in Serum or Plasma [2345-7]01/02/2025 09:36 AM151 mg/dLNBlood chemistry[[id number]]?Glucose [Mass/volume] in Serum or Plasma [2345-7] 01/01/2025 02:25 PM147 mg/dLNBlood chemistry[[id number]]?Glucose [Mass/volume] in Serum or Plasma [2345-7]01/01/2025 09:57 AM210 mg/dLNBlood chemistry[[id number]]?Glucose [Mass/volume] in Serum or Plasma [2345-7] 01/01/2025 04:07 PM206 mg/dLNBlood chemistry[[id number]]?Glucose [Mass/volume] in Serum or Plasma [2345-7]01/01/2025 10:54 AM138 mg/dLNBlood chemistry[[id number]]?Glucose [Mass/volume] in Serum or Plasma [2345-7] 12/31/2024 11:14 AM185 mg/dLNBlood chemistry[[id number]]?Glucose [Mass/volume] in Serum or Plasma [2345-7]12/31/2024 02:49 PM142 mg/dLNBlood chemistry[[id number]]?Glucose [Mass/volume] in Serum or Plasma [2345-7] 12/31/2024 08:39 AM130 mg/dLNGlucose [Mass/volume] in Serum or Plasma [2345-7] 12/31/2024 08:39 AM135 mg/dLNBlood chemistry[[id number]]?Glucose [Mass/volume] in Serum or Plasma [2345-7]12/30/2024 01:44 PM133 mg/dLNBlood chemistry[[id number]]?Glucose [Mass/volume] in Serum or Plasma [2345-7] 12/30/2024 04:15 PM121 mg/dLNBlood chemistry[[id number]]?Glucose [Mass/volume] in Serum or Plasma [2345-7]12/30/2024 10:04 AM147 mg/dLNBlood chemistry[[id number]]?Glucose [Mass/volume] in Serum or Plasma [2345-7] 12/30/2024 10:22 AM107 mg/dLNBlood chemistry[[id number]]?Glucose [Mass/volume] in Serum or Plasma [2345-7]12/29/2024 11:34 AM251 mg/dLNBlood chemistry[[id number]]?Glucose [Mass/volume] in Serum or Plasma [2345-7] 12/29/2024 03:16 PM231 mg/dLNBlood chemistry[[id number]]?Glucose [Mass/volume] in Serum or Plasma [2345-7]12/29/2024 08:35 AM201 mg/dLNBlood chemistry[[id number]]?Glucose [Mass/volume] in Serum or Plasma [2345-7] 12/29/2024 10:56 AM101 mg/dLNBlood chemistry[[id number]]?Glucose [Mass/volume] in Serum or Plasma [2345-7]12/28/2024 02:50 PM174 mg/dLNBlood chemistry[[id number]]?Glucose [Mass/volume] in Serum or Plasma [2345-7] 12/28/2024 09:13 AM167 mg/dLNBlood chemistry[[id number]]?Glucose [Mass/volume] in Serum or Plasma [2345-7]12/28/2024 10:38 AM121 mg/dLNBlood chemistry[[id number]]?Glucose [Mass/volume] in Serum or Plasma [2345-7] 12/27/2024 02:50 PM149 mg/dLNBlood chemistry[[id number]]?Glucose [Mass/volume] in Serum or Plasma [2345-7]12/27/2024 09:41 AM184 mg/dLNBlood chemistry[[id number]]?Glucose [Mass/volume] in Serum or Plasma [2345-7] 12/27/2024 04:17 PM280 mg/dLNBlood chemistry[[id number]]?Glucose [Mass/volume] in Serum or Plasma [2345-7]12/27/2024 10:09 AM121 mg/dLNBlood chemistry[[id number]]?Glucose [Mass/volume] in Serum or Plasma [2345-7] 12/26/2024 10:41 AM202 mg/dLNBlood chemistry[[id number]]?Glucose [Mass/volume] in Serum or Plasma [2345-7]12/26/2024 09:22 AM169 mg/dLNBlood chemistry[[id number]]?Glucose [Mass/volume] in Serum or Plasma [2345-7] 12/26/2024 03:31 PM195 mg/dLNBlood chemistry[[id number]]?Glucose [Mass/volume] in Serum or Plasma [2345-7]12/26/2024 08:16 AM129 mg/dLNBlood chemistry[[id number]]?Glucose [Mass/volume] in Serum or Plasma [2345-7] 12/25/2024 03:02 PM103 mg/dLNBlood chemistry[[id number]]?Glucose [Mass/volume] in Serum or Plasma [2345-7]12/25/2024 09:24 AM192 mg/dLNBlood chemistry[[id number]]?Glucose [Mass/volume] in Serum or Plasma [2345-7] 12/25/2024 03:49 PM301 mg/dLNBlood chemistry[[id number]]?Glucose [Mass/volume] in Serum or Plasma [2345-7]12/25/2024 11:38 AM148 mg/dLNBlood chemistry[[id number]]?Glucose [Mass/volume] in Serum or Plasma [2345-7] 12/24/2024 03:06 PM150 mg/dLNBlood chemistry[[id number]]?Glucose [Mass/volume] in Serum or Plasma [2345-7]12/24/2024 10:58 AM211 mg/dLNBlood chemistry[[id number]]?Glucose [Mass/volume] in Serum or Plasma [2345-7] 12/24/2024 04:18 PM272 mg/dLNBlood chemistry[[id number]]?Glucose [Mass/volume] in Serum or Plasma [2345-7]12/23/2024 03:01 PM218 mg/dLNBlood chemistry[[id number]]?Glucose [Mass/volume] in Serum or Plasma [2345-7] 12/23/2024 05:00 PM141 mg/dLNBlood chemistry[[id number]]?Glucose [Mass/volume] in Serum or Plasma [2345-7]12/23/2024 08:31 AM184 mg/dLNBlood chemistry[[id number]]?Glucose [Mass/volume] in Serum or Plasma [2345-7] 12/23/2024 11:28 AM291 mg/dLNBlood chemistry[[id number]]?Glucose [Mass/volume] in Serum or Plasma [2345-7]12/22/2024 04:03 PM105 mg/dLNBlood chemistry[[id number]]?Glucose [Mass/volume] in Serum or Plasma [2345-7] 12/22/2024 09:03 AM154 mg/dLNBlood chemistry[[id number]]?Glucose [Mass/volume] in Serum or Plasma [2345-7]12/22/2024 02:54 PM301 mg/dLNBlood chemistry[[id number]]?Glucose [Mass/volume] in Serum or Plasma [2345-7] 12/22/2024 09:02 AM168 mg/dLNBlood chemistry[[id number]]?Glucose [Mass/volume] in Serum or Plasma [2345-7]12/21/2024 01:51 PM186 mg/dLNBlood chemistry[[id number]]?Glucose [Mass/volume] in Serum or Plasma [2345-7] 12/21/2024 08:14 AM203 mg/dLNBlood chemistry[[id number]]?Glucose [Mass/volume] in Serum or Plasma [2345-7]12/21/2024 04:09 PM136 mg/dLNBlood chemistry[[id number]]?Glucose [Mass/volume] in Serum or Plasma [2345-7] 12/21/2024 10:38 AM120 mg/dLNBlood chemistry[[id number]]?Glucose [Mass/volume] in Serum or Plasma [2345-7]12/20/2024 11:04 AM212 mg/dLNBlood chemistry[[id number]]?Glucose [Mass/volume] in Serum or Plasma [2345-7] 12/20/2024 08:22 AM228 mg/dLNBlood chemistry[[id number]]?Glucose [Mass/volume] in Serum or Plasma [2345-7]12/20/2024 02:50 PM233 mg/dLNBlood chemistry[[id number]]?Glucose [Mass/volume] in Serum or Plasma [2345-7] 12/20/2024 11:01 AM126 mg/dLNBlood chemistry[[id number]]?Glucose [Mass/volume] in Serum or Plasma [2345-7]12/19/2024 02:29 PM174 mg/dLNBlood chemistry[[id number]]?Glucose [Mass/volume] in Serum or Plasma [2345-7] 12/19/2024 09:06 AM167 mg/dLNBlood chemistry[[id number]]?Glucose [Mass/volume] in Serum or Plasma [2345-7]12/19/2024 04:36 PM157 mg/dLNBlood chemistry[[id number]]?Glucose [Mass/volume] in Serum or Plasma [2345-7] 12/19/2024 11:17 AM115 mg/dLNBlood chemistry[[id number]]?Glucose [Mass/volume] in Serum or Plasma [2345-7]12/18/2024 03:30 PM135 mg/dLNBlood chemistry[[id number]]?Glucose [Mass/volume] in Serum or Plasma [2345-7] 12/18/2024 09:13 AM194 mg/dLNBlood chemistry[[id number]]?Glucose [Mass/volume] in Serum or Plasma [2345-7]12/18/2024 04:31 PM144 mg/dLNBlood chemistry[[id number]]?Glucose [Mass/volume] in Serum or Plasma [2345-7] 12/18/2024 11:34 AM143 mg/dLNBlood chemistry[[id number]]?Glucose [Mass/volume] in Serum or Plasma [2345-7]12/17/2024 02:07 PM186 mg/dLNBlood chemistry[[id number]]?Glucose [Mass/volume] in Serum or Plasma [2345-7] 12/17/2024 10:39 AM274 mg/dLNBlood chemistry[[id number]]?Glucose [Mass/volume] in Serum or Plasma [2345-7]12/17/2024 03:45 PM279 mg/dLNBlood chemistry[[id number]]?Glucose [Mass/volume] in Serum or Plasma [2345-7] 12/17/2024 09:01 AM118 mg/dLNBlood chemistry[[id number]]?Glucose [Mass/volume] in Serum or Plasma [2345-7]12/16/2024 02:27 PM142 mg/dLNBlood chemistry[[id number]]?Glucose [Mass/volume] in Serum or Plasma [2345-7] 12/16/2024 10:08 AM201 mg/dLNBlood chemistry[[id number]]?Glucose [Mass/volume] in Serum or Plasma [2345-7]12/16/2024 04:37 PM129 mg/dLNBlood chemistry[[id number]]?Glucose [Mass/volume] in Serum or Plasma [2345-7] 12/16/2024 10:30 AM119 mg/dLNBlood chemistry[[id number]]?Glucose [Mass/volume] in Serum or Plasma [2345-7]12/15/2024 03:50 PM154 mg/dLNBlood chemistry[[id number]]?Glucose [Mass/volume] in Serum or Plasma [2345-7] 12/15/2024 03:20 PM235 mg/dLNBlood chemistry[[id number]]?Glucose [Mass/volume] in Serum or Plasma [2345-7]12/15/2024 11:06 AM143 mg/dLNBlood chemistry[[id number]]?Glucose [Mass/volume] in Serum or Plasma [2345-7] 12/14/2024 11:30 AM243 mg/dLNBlood chemistry[[id number]]?Glucose [Mass/volume] in Serum or Plasma [2345-7]12/14/2024 04:47 PM209 mg/dLNBlood chemistry[[id number]]?Glucose [Mass/volume] in Serum or Plasma [2345-7] 12/14/2024 09:45 AM151 mg/dLNBlood chemistry[[id number]]?Glucose [Mass/volume] in Serum or Plasma [2345-7]12/14/2024 10:37 AM125 mg/dLNBlood chemistry[[id number]]?Glucose [Mass/volume] in Serum or Plasma [2345-7] 12/13/2024 03:01 PM151 mg/dLNBlood chemistry[[id number]]?Glucose [Mass/volume] in Serum or Plasma [2345-7]12/13/2024 10:02 AM342 mg/dLNBlood chemistry[[id number]]?Glucose [Mass/volume] in Serum or Plasma [2345-7] 12/13/2024 04:47 PM319 mg/dLNBlood chemistry[[id number]]?Glucose [Mass/volume] in Serum or Plasma [2345-7]12/13/2024 11:08 AM132 mg/dLNBlood chemistry[[id number]]?Glucose [Mass/volume] in Serum or Plasma [2345-7] 12/12/2024 11:03 AM216 mg/dLNBlood chemistry[[id number]]?Glucose [Mass/volume] in Serum or Plasma [2345-7]12/12/2024 09:19 AM336 mg/dLNBlood chemistry[[id number]]?Glucose [Mass/volume] in Serum or Plasma [2345-7] 12/12/2024 03:29 PM176 mg/dLNBlood chemistry[[id number]]?Glucose [Mass/volume] in Serum or Plasma [2345-7]12/12/2024 09:17 AM148 mg/dLNBlood chemistry[[id number]]?Glucose [Mass/volume] in Serum or Plasma [2345-7] 12/11/2024 10:59 AM145 mg/dLNBlood chemistry[[id number]]?Glucose [Mass/volume] in Serum or Plasma [2345-7]12/11/2024 10:29 AM183 mg/dLNBlood chemistry[[id number]]?Glucose [Mass/volume] in Serum or Plasma [2345-7] 12/11/2024 04:20 PM214 mg/dLNBlood chemistry[[id number]]?Glucose [Mass/volume] in Serum or Plasma [2345-7]12/11/2024 11:44 AM162 mg/dLNBlood chemistry[[id number]]?Glucose [Mass/volume] in Serum or Plasma [2345-7] 12/10/2024 02:09 PM178 mg/dLNBlood chemistry[[id number]]?Glucose [Mass/volume] in Serum or Plasma [2345-7]12/10/2024 08:08 AM201 mg/dLNBlood chemistry[[id number]]?Glucose [Mass/volume] in Serum or Plasma [2345-7] 12/10/2024 04:49 PM133 mg/dLNBlood chemistry[[id number]]?Glucose [Mass/volume] in Serum or Plasma [2345-7]12/10/2024 10:43 AM152 mg/dLNBlood chemistry[[id number]]?Glucose [Mass/volume] in Serum or Plasma [2345-7] 12/09/2024 01:47 PM249 mg/dLNBlood chemistry[[id number]]?Glucose [Mass/volume] in Serum or Plasma [2345-7]12/09/2024 09:35 AM307 mg/dLNBlood chemistry[[id number]]?Glucose [Mass/volume] in Serum or Plasma [2345-7] 12/09/2024 04:38 PM142 mg/dLNBlood chemistry[[id number]]?Glucose [Mass/volume] in Serum or Plasma [2345-7]12/09/2024 10:46 AM129 mg/dLNBlood chemistry[[id number]]?Glucose [Mass/volume] in Serum or Plasma [2345-7] 12/08/2024 02:46 PM134 mg/dLNBlood chemistry[[id number]]?Glucose [Mass/volume] in Serum or Plasma [2345-7]12/08/2024 09:37 AM204 mg/dLNBlood chemistry[[id number]]?Glucose [Mass/volume] in Serum or Plasma [2345-7] 12/08/2024 03:21 PM151 mg/dLNBlood chemistry[[id number]]?Glucose [Mass/volume] in Serum or Plasma [2345-7]12/08/2024 10:24 AM136 mg/dLNBlood chemistry[[id number]]?Glucose [Mass/volume] in Serum or Plasma [2345-7] 12/07/2024 04:54 PM241 mg/dLNBlood chemistry[[id number]]?Glucose [Mass/volume] in Serum or Plasma [2345-7]12/07/2024 01:44 PM248 mg/dLNBlood chemistry[[id number]]?Glucose [Mass/volume] in Serum or Plasma [2345-7] 12/07/2024 09:24 AM333 mg/dLNBlood chemistry[[id number]]?Glucose [Mass/volume] in Serum or Plasma [2345-7]12/07/2024 10:49 AM145 mg/dLNBlood chemistry[[id number]]?Glucose [Mass/volume] in Serum or Plasma [2345-7] 12/06/2024 03:44 PM177 mg/dLNBlood chemistry[[id number]]?Glucose [Mass/volume] in Serum or Plasma [2345-7]12/06/2024 02:11 PM252 mg/dLNBlood chemistry[[id number]]?Glucose [Mass/volume] in Serum or Plasma [2345-7] 12/06/2024 09:46 AM212 mg/dLNBlood chemistry[[id number]]?Glucose [Mass/volume] in Serum or Plasma [2345-7]12/06/2024 10:26 AM161 mg/dLNBlood chemistry[[id number]]?Glucose [Mass/volume] in Serum or Plasma [2345-7] 12/05/2024 02:51 PM144 mg/dLNBlood chemistry[[id number]]?Glucose [Mass/volume] in Serum or Plasma [2345-7]12/05/2024 10:01 AM248 mg/dLNBlood chemistry[[id number]]?Glucose [Mass/volume] in Serum or Plasma [2345-7] 12/05/2024 04:47 PM143 mg/dLNBlood chemistry[[id number]]?Glucose [Mass/volume] in Serum or Plasma [2345-7]12/05/2024 10:20 AM165 mg/dLNBlood chemistry[[id number]]?Glucose [Mass/volume] in Serum or Plasma [2345-7] 12/04/2024 04:00 PM134 mg/dLNBlood chemistry[[id number]]?Glucose [Mass/volume] in Serum or Plasma [2345-7]12/04/2024 10:41 AM153 mg/dLNBlood chemistry[[id number]]?Glucose [Mass/volume] in Serum or Plasma [2345-7] 12/04/2024 04:21 PM196 mg/dLNBlood chemistry[[id number]]?Glucose [Mass/volume] in Serum or Plasma [2345-7]12/04/2024 11:22 AM134 mg/dLNBlood chemistry[[id number]]?Glucose [Mass/volume] in Serum or Plasma [2345-7] 12/03/2024 03:53 PM219 mg/dLNBlood chemistry[[id number]]?Glucose [Mass/volume] in Serum or Plasma [2345-7]12/03/2024 02:47 PM172 mg/dLNBlood chemistry[[id number]]?Glucose [Mass/volume] in Serum or Plasma [2345-7] 12/03/2024 10:10 AM193 mg/dLNBlood chemistry[[id number]]?Glucose [Mass/volume] in Serum or Plasma [2345-7]12/03/2024 10:00 AM123 mg/dLNBlood chemistry[[id number]]?Glucose [Mass/volume] in Serum or Plasma [2345-7] 12/02/2024 03:19 PM250 mg/dLNBlood chemistry[[id number]]?Glucose [Mass/volume] in Serum or Plasma [2345-7]12/02/2024 04:24 PM219 mg/dLNBlood chemistry[[id number]]?Glucose [Mass/volume] in Serum or Plasma [2345-7] 12/02/2024 08:59 AM256 mg/dLNBlood chemistry[[id number]]?Glucose [Mass/volume] in Serum or Plasma [2345-7]12/02/2024 10:05 AM193 mg/dLNBlood chemistry[[id number]]?Glucose [Mass/volume] in Serum or Plasma [2345-7] 12/01/2024 03:08 PM157 mg/dLNBlood chemistry[[id number]]?Glucose [Mass/volume] in Serum or Plasma [2345-7]12/01/2024 02:56 PM191 mg/dLNBlood chemistry[[id number]]?Glucose [Mass/volume] in Serum or Plasma [2345-7] 12/01/2024 09:13 AM226 mg/dLNBlood chemistry[[id number]]?Glucose [Mass/volume] in Serum or Plasma [2345-7]12/01/2024 11:02 AM184 mg/dLNBlood chemistry[[id number]]?Glucose [Mass/volume] in Serum or Plasma [2345-7] 11/30/2024 11:20 AM250 mg/dLNBlood chemistry[[id number]]?Glucose [Mass/volume] in Serum or Plasma [2345-7]11/30/2024 04:48 PM173 mg/dLNBlood chemistry[[id number]]?Glucose [Mass/volume] in Serum or Plasma [2345-7] 11/30/2024 09:33 AM227 mg/dLNBlood chemistry[[id number]]?Glucose [Mass/volume] in Serum or Plasma [2345-7]11/30/2024 10:05 AM114 mg/dLNBlood chemistry[[id number]]?Glucose [Mass/volume] in Serum or Plasma [2345-7] 11/29/2024 04:25 PM137 mg/dLNBlood chemistry[[id number]]?Glucose [Mass/volume] in Serum or Plasma [2345-7]11/29/2024 09:12 AM167 mg/dLNBlood chemistry[[id number]]?Glucose [Mass/volume] in Serum or Plasma [2345-7] 11/29/2024 06:32 AM213 mg/dLNBlood chemistry[[id number]]?Glucose [Mass/volume] in Serum or Plasma [2345-7]11/29/2024 08:42 AM135 mg/dLNBlood chemistry[[id number]]?Glucose [Mass/volume] in Serum or Plasma [2345-7] 11/28/2024 11:08 AM368 mg/dLNBlood chemistry[[id number]]?Glucose [Mass/volume] in Serum or Plasma [2345-7]11/28/2024 09:44 AM202 mg/dLNBlood chemistry[[id number]]?Glucose [Mass/volume] in Serum or Plasma [2345-7] 11/28/2024 05:07 PM163 mg/dLNBlood chemistry[[id number]]?Glucose [Mass/volume] in Serum or Plasma [2345-7]11/28/2024 03:23 PM177 mg/dLNBlood chemistry[[id number]]?Glucose [Mass/volume] in Serum or Plasma [2345-7] 11/28/2024 08:35 AM147 mg/dLNBlood chemistry[[id number]]?Glucose [Mass/volume] in Serum or Plasma [[facility]5-7]11/27/2024 11:42 AM223 mg/dLNBlood chemistry[[id number]]?Glucose [Mass/volume] in Serum or Plasma [2345-7] 11/27/2024 04:42 PM183 mg/dLNBlood chemistry[[id number]]?Glucose [Mass/volume] in Serum or Plasma [2345-7]11/27/2024 08:25 AM215 mg/dLNBlood chemistry[[id number]]?Glucose [Mass/volume] in Serum or Plasma [2345-7] 11/27/2024 05:41 PM145 mg/dLNBlood chemistry[[id number]]?Glucose [Mass/volume] in Serum or Plasma [2345-7]11/27/2024 10:00 AM169 mg/dLNBlood chemistry[[id number]]?Glucose [Mass/volume] in Serum or Plasma [2345-7] 11/26/2024 03:47 PM271 mg/dLNBlood chemistry[[id number]]?Glucose [Mass/volume] in Serum or Plasma [2345-7]11/26/2024 10:11 AM167 mg/dLNBlood chemistry[[id number]]?Glucose [Mass/volume] in Serum or Plasma [2345-7] 11/26/2024 11:13 AM144 mg/dLNBlood chemistry[[id number]]?Glucose [Mass/volume] in Serum or Plasma [2345-7]11/25/2024 03:38 PM142 mg/dLNBlood chemistry[[id number]]?Glucose [Mass/volume] in Serum or Plasma [2345-7] 11/25/2024 09:02 AM250 mg/dLNBlood chemistry[[id number]]?Glucose [Mass/volume] in Serum or Plasma [2345-7]11/25/2024 04:19 PM193 mg/dLNBlood chemistry[[id number]]?Glucose [Mass/volume] in Serum or Plasma [2345-7] 11/25/2024 10:16 AM148 mg/dLNBlood chemistry[[id number]]?Glucose [Mass/volume] in Serum or Plasma [2345-7]11/24/2024 01:56 PM176 mg/dLNBlood chemistry[[id number]]?Glucose [Mass/volume] in Serum or Plasma [2345-7] 11/24/2024 09:49 AM257 mg/dLNBlood chemistry[[id number]]?Glucose [Mass/volume] in Serum or Plasma [2345-7]11/24/2024 02:54 PM159 mg/dLNBlood chemistry[[id number]]?Glucose [Mass/volume] in Serum or Plasma [2345-7] 11/24/2024 10:24 AM117 mg/dLNBlood chemistry[[id number]]?Glucose [Mass/volume] in Serum or Plasma [2345-7]11/23/2024 04:22 PM183 mg/dLNBlood chemistry[[id number]]?Glucose [Mass/volume] in Serum or Plasma [2345-7] 11/23/2024 03:01 PM247 mg/dLNBlood chemistry[[id number]]?Glucose [Mass/volume] in Serum or Plasma [2345-7]11/23/2024 09:26 AM196 mg/dLNBlood chemistry[[id number]]?Glucose [Mass/volume] in Serum or Plasma [2345-7] 11/23/2024 10:42 AM156 mg/dLNBlood chemistry[[id number]]?Glucose [Mass/volume] in Serum or Plasma [2345-7]11/22/2024 04:08 PM178 mg/dLNBlood chemistry[[id number]]?Glucose [Mass/volume] in Serum or Plasma [2345-7] 11/22/2024 01:30 PM269 mg/dLNBlood chemistry[[id number]]?Glucose [Mass/volume] in Serum or Plasma [2345-7]11/22/2024 09:23 AM242 mg/dLNBlood chemistry[[id number]]?Glucose [Mass/volume] in Serum or Plasma [2345-7] 11/22/2024 10:26 AM202 mg/dLNBlood chemistry[[id number]]?Glucose [Mass/volume] in Serum or Plasma [2345-7]11/21/2024 03:13 PM135 mg/dLNBlood chemistry[[id number]]?Glucose [Mass/volume] in Serum or Plasma [2345-7] 11/21/2024 10:26 AM154 mg/dLNBlood chemistry[[id number]]?Glucose [Mass/volume] in Serum or Plasma [2345-7]11/21/2024 04:48 PM194 mg/dLNBlood chemistry[[id number]]?Glucose [Mass/volume] in Serum or Plasma [2345-7] 11/21/2024 10:31 AM144 mg/dLNBlood chemistry[[id number]]?Glucose [Mass/volume] in Serum or Plasma [2345-7]11/20/2024 03:08 PM145 mg/dLNBlood chemistry[[id number]]?Glucose [Mass/volume] in Serum or Plasma [2345-7] 11/20/2024 09:15 AM134 mg/dLNBlood chemistry[[id number]]?Glucose [Mass/volume] in Serum or Plasma [2345-7]11/20/2024 04:34 PM156 mg/dLNBlood chemistry[[id number]]?Glucose [Mass/volume] in Serum or Plasma [2345-7] 11/20/2024 11:25 AM128 mg/dLNBlood chemistry[[id number]]?Glucose [Mass/volume] in Serum or Plasma [2345-7]11/19/2024 02:50 PM202 mg/dLNBlood chemistry[[id number]]?Glucose [Mass/volume] in Serum or Plasma [2345-7] 11/19/2024 08:26 AM270 mg/dLNBlood chemistry[[id number]]?Glucose [Mass/volume] in Serum or Plasma [2345-7]11/19/2024 04:12 PM234 mg/dLNBlood chemistry[[id number]]?Glucose [Mass/volume] in Serum or Plasma [2345-7] 11/19/2024 11:21 AM138 mg/dLNBlood chemistry[[id number]]?Glucose [Mass/volume] in Serum or Plasma [2345-7]11/18/2024 03:02 PM186 mg/dLNBlood chemistry[[id number]]?Glucose [Mass/volume] in Serum or Plasma [2345-7] 11/18/2024 04:37 PM140 mg/dLNBlood chemistry[[id number]]?Glucose [Mass/volume] in Serum or Plasma [2345-7]11/18/2024 08:53 AM171 mg/dLNBlood chemistry[[id number]]?Glucose [Mass/volume] in Serum or Plasma [2345-7] 11/18/2024 11:15 AM133 mg/dLNBlood chemistry[[id number]]?Glucose [Mass/volume] in Serum or Plasma [2345-7]11/17/2024 11:32 AM285 mg/dLNBlood chemistry[[id number]]?Glucose [Mass/volume] in Serum or Plasma [2345-7] 11/17/2024 03:17 PM186 mg/dLNBlood chemistry[[id number]]?Glucose [Mass/volume] in Serum or Plasma [2345-7]11/17/2024 11:22 AM136 mg/dLNBlood chemistry[[id number]]?Glucose [Mass/volume] in Serum or Plasma [2345-7] 11/17/2024 10:46 AM124 mg/dLNBlood chemistry[[id number]]?Glucose [Mass/volume] in Serum or Plasma [2345-7]11/16/2024 04:36 PM116 mg/dLNBlood chemistry[[id number]]?Glucose [Mass/volume] in Serum or Plasma [2345-7] 11/16/2024 08:23 AM212 mg/dLNBlood chemistry[[id number]]?Glucose [Mass/volume] in Serum or Plasma [2345-7]11/16/2024 09:08 AM136 mg/dLNBlood chemistry[[id number]]?Glucose [Mass/volume] in Serum or Plasma [2345-7] 11/15/2024 04:37 PM158 mg/dLNBlood chemistry[[id number]]?Glucose [Mass/volume] in Serum or Plasma [2345-7]11/15/2024 04:20 PM154 mg/dLNBlood chemistry[[id number]]?Glucose [Mass/volume] in Serum or Plasma [[facility]] 11/15/2024 09:00 AM199 mg/dLNBlood chemistry[[id number]]?Glucose [Mass/volume] in Serum or Plasma [[facility]5-7]11/15/2024 10:53 AM130 mg/dLNBlood chemistry[[id number]]?Glucose [Mass/volume] in Serum or Plasma [[facility]5-[facility]] 11/14/2024 01:53 PM192 mg/dLNBlood chemistry[[id number]]?Glucose [Mass/volume] in Serum or Plasma [[facility]5-7]11/14/2024 10:02 AM131 mg/dLNBlood chemistry[[id number]]?Glucose [Mass/volume] in Serum or Plasma [[facility]5-[facility]] 11/14/2024 04:30 PM195 mg/dLNBlood chemistry[[id number]]?Glucose [Mass/volume] in Serum or Plasma [2345-7]11/14/2024 10:55 AM125 mg/dLNBlood chemistry[[id number]]?Glucose [Mass/volume] in Serum or Plasma [2345-7] 11/13/2024 02:18 PM206 mg/dLNBlood chemistry[[id number]]?Glucose [Mass/volume] in Serum or Plasma [2345-7]11/13/2024 10:10 AM218 mg/dLNBlood chemistry[[id number]]?Glucose [Mass/volume] in Serum or Plasma [2345-7] 11/13/2024 05:21 PM184 mg/dLNBlood chemistry[[id number]]?Glucose [Mass/volume] in Serum or Plasma [2345-7]11/13/2024 05:00 PM224 mg/dLNBlood chemistry[[id number]]?Glucose [Mass/volume] in Serum or Plasma [2345-7] 11/13/2024 10:50 AM107 mg/dLNBlood chemistry[[id number]]?Glucose [Mass/volume] in Serum or Plasma [2345-7]11/12/2024 09:21 AM164 mg/dLNBlood chemistry[[id number]]?Glucose [Mass/volume] in Serum or Plasma [2345-7] 11/12/2024 04:09 PM157 mg/dLNBlood chemistry[[id number]]?Glucose [Mass/volume] in Serum or Plasma [2345-7]11/12/2024 11:30 AM136 mg/dLNBlood chemistry[[id number]]?Glucose [Mass/volume] in Serum or Plasma [2345-7] 11/11/2024 03:19 PM178 mg/dLNBlood chemistry[[id number]]?Glucose [Mass/volume] in Serum or Plasma [2345-7]11/11/2024 09:31 AM136 mg/dLNBlood chemistry[[id number]]?Glucose [Mass/volume] in Serum or Plasma [2345-7] 11/11/2024 05:31 PM144 mg/dLNBlood chemistry[[id number]]?Glucose [Mass/volume] in Serum or Plasma [2345-7]11/11/2024 11:07 AM133 mg/dLNBlood chemistry[[id number]]?Glucose [Mass/volume] in Serum or Plasma [2345-7] 11/10/2024 04:43 PM233 mg/dLNBlood chemistry[[id number]]?Glucose [Mass/volume] in Serum or Plasma [2345-7]11/10/2024 02:43 PM178 mg/dLNBlood chemistry[[id number]]?Glucose [Mass/volume] in Serum or Plasma [2345-7] 11/10/2024 09:43 AM165 mg/dLNCOVID-19 Test Viral Antigennull flavor [null] 11/10/2024 05:00 PMSee notePOSCOVID-19 Test Viral AntigenBlood chemistry[[id number]]?Glucose [Mass/volume] in Serum or Plasma [2345-7] 11/10/2024 10:36 AM144 mg/dLNBlood chemistry[[id number]]?Glucose [Mass/volume] in Serum or Plasma [2345-7]11/09/2024 04:52 PM186 mg/dLNBlood chemistry[[id number]]?Glucose [Mass/volume] in Serum or Plasma [2345-7] 11/09/2024 11:41 AM262 mg/dLNBlood chemistry[[id number]]?Glucose [Mass/volume] in Serum or Plasma [2345-7]11/09/2024 08:08 AM216 mg/dLNBlood chemistry[[id number]]?Glucose [Mass/volume] in Serum or Plasma [2345-7] 11/09/2024 10:51 AM160 mg/dLNBlood chemistry[[id number]]?Glucose [Mass/volume] in Serum or Plasma [2345-7]11/08/2024 11:25 AM201 mg/dLNBlood chemistry[[id number]]?Glucose [Mass/volume] in Serum or Plasma [2345-7] 11/08/2024 04:20 PM256 mg/dLNBlood chemistry[[id number]]?Glucose [Mass/volume] in Serum or Plasma [2345-7]11/08/2024 10:22 AM132 mg/dLNBlood chemistry[[id number]]?Glucose [Mass/volume] in Serum or Plasma [2345-7] 11/08/2024 08:40 AM210 mg/dLNBlood chemistry[[id number]]?Glucose [Mass/volume] in Serum or Plasma [2345-7]11/07/2024 02:42 PM143 mg/dLNBlood chemistry[[id number]]?Glucose [Mass/volume] in Serum or Plasma [2345-7] 11/07/2024 09:57 AM137 mg/dLNBlood chemistry[[id number]]?Glucose [Mass/volume] in Serum or Plasma [2345-7]11/07/2024 05:44 PM142 mg/dLNBlood chemistry[[id number]]?Glucose [Mass/volume] in Serum or Plasma [2345-7] 11/07/2024 11:11 AM146 mg/dLNBlood chemistry[[id number]]?Glucose [Mass/volume] in Serum or Plasma [2345-7]11/06/2024 03:37 PM157 mg/dLNBlood chemistry[[id number]]?Glucose [Mass/volume] in Serum or Plasma [2345-7] 11/06/2024 08:59 AM144 mg/dLNBlood chemistry[[id number]]?Glucose [Mass/volume] in Serum or Plasma [2345-7]11/06/2024 05:03 PM168 mg/dLNBlood chemistry[[id number]]?Glucose [Mass/volume] in Serum or Plasma [2345-7] 11/06/2024 11:29 AM159 mg/dLNBlood chemistry[[id number]]?Glucose [Mass/volume] in Serum or Plasma [2345-7]11/05/2024 03:37 PM186 mg/dLNBlood chemistry[[id number]]?Glucose [Mass/volume] in Serum or Plasma [2345-7] 11/05/2024 11:31 AM206 mg/dLNBlood chemistry[[id number]]?Glucose [Mass/volume] in Serum or Plasma [2345-7]11/05/2024 08:38 AM236 mg/dLNBlood chemistry[[id number]]?Glucose [Mass/volume] in Serum or Plasma [2345-7] 11/05/2024 11:54 AM192 mg/dLNBlood chemistry[[id number]]?Glucose [Mass/volume] in Serum or Plasma [2345-7]11/04/2024 11:34 AM250 mg/dLNBlood chemistry[[id number]]?Glucose [Mass/volume] in Serum or Plasma [2345-7] 11/04/2024 04:29 PM152 mg/dLNBlood chemistry[[id number]]?Glucose [Mass/volume] in Serum or Plasma [2345-7]11/04/2024 08:23 AM185 mg/dLNBlood chemistry[[id number]]?Glucose [Mass/volume] in Serum or Plasma [2345-7] 11/04/2024 10:34 AM138 mg/dLNBlood chemistry[[id number]]?Glucose [Mass/volume] in Serum or Plasma [2345-7]11/03/2024 03:39 PM157 mg/dLNBlood chemistry[[id number]]?Glucose [Mass/volume] in Serum or Plasma [2345-7] 11/03/2024 09:47 AM234 mg/dLNBlood chemistry[[id number]]?Glucose [Mass/volume] in Serum or Plasma [2345-7]11/03/2024 03:15 PM197 mg/dLNBlood chemistry[[id number]]?Glucose [Mass/volume] in Serum or Plasma [2345-7] 11/03/2024 10:13 AM142 mg/dLNBlood chemistry[[id number]]?Glucose [Mass/volume] in Serum or Plasma [2345-7]11/02/2024 01:21 PM166 mg/dLNBlood chemistry[[id number]]?Glucose [Mass/volume] in Serum or Plasma [2345-7] 11/02/2024 11:06 AM128 mg/dLNBlood chemistry[[id number]]?Glucose [Mass/volume] in Serum or Plasma [2345-7]11/02/2024 05:23 PM144 mg/dLNBlood chemistry[[id number]]?Glucose [Mass/volume] in Serum or Plasma [2345-7] 11/02/2024 10:24 AM140 mg/dLNBlood chemistry[[id number]]?Glucose [Mass/volume] in Serum or Plasma [2345-7]11/01/2024 04:24 PM170 mg/dLNBlood chemistry[[id number]]?Glucose [Mass/volume] in Serum or Plasma [2345-7] 11/01/2024 03:25 PM134 mg/dLNBlood chemistry[[id number]]?Glucose [Mass/volume] in Serum or Plasma [2345-7]11/01/2024 09:41 AM151 mg/dLNBlood chemistry[[id number]]?Glucose [Mass/volume] in Serum or Plasma [2345-7] 11/01/2024 08:41 AM106 mg/dLNBlood chemistry[[id number]]?Glucose [Mass/volume] in Serum or Plasma [2345-7]10/31/2024 05:22 PM185 mg/dLNBlood chemistry[[id number]]?Glucose [Mass/volume] in Serum or Plasma [2345-7] 10/31/2024 11:11 AM233 mg/dLNBlood chemistry[[id number]]?Glucose [Mass/volume] in Serum or Plasma [2345-7]10/31/2024 09:24 AM193 mg/dLNBlood chemistry[[id number]]?Glucose [Mass/volume] in Serum or Plasma [2345-7] 10/31/2024 11:18 AM151 mg/dLNBlood chemistry[[id number]]?Glucose [Mass/volume] in Serum or Plasma [2345-7]10/30/2024 11:28 AM184 mg/dLNBlood chemistry[[id number]]?Glucose [Mass/volume] in Serum or Plasma [2345-7] 10/30/2024 09:41 AM168 mg/dLNBlood chemistry[[id number]]?Glucose [Mass/volume] in Serum or Plasma [2345-7]10/29/2024 09:45 AM154 mg/dLNBlood chemistry[[id number]]?Glucose [Mass/volume] in Serum or Plasma [2345-7] 10/27/2024 05:12 PM155 mg/dLNBlood chemistry[[id number]]?Glucose [Mass/volume] in Serum or Plasma [2345-7]10/27/2024 11:43 AM195 mg/dLNBlood chemistry[[id number]]?Glucose [Mass/volume] in Serum or Plasma [2345-7] 10/27/2024 09:31 AM156 mg/dLNBlood chemistry[[id number]]?Glucose [Mass/volume] in Serum or Plasma [2345-7]10/27/2024 11:36 AM135 mg/dLNBlood chemistry[[id number]]?Glucose [Mass/volume] in Serum or Plasma [2345-7] 10/26/2024 03:11 PM178 mg/dLNBlood chemistry[[id number]]?Glucose [Mass/volume] in Serum or Plasma [2345-7]10/26/2024 10:49 AM134 mg/dLNBlood chemistry[[id number]]?Glucose [Mass/volume] in Serum or Plasma [2345-7] 10/26/2024 04:52 PM145 mg/dLNBlood chemistry[[id number]]?Glucose [Mass/volume] in Serum or Plasma [2345-7]10/26/2024 11:19 AM118 mg/dLNBlood chemistry[[id number]]?Glucose [Mass/volume] in Serum or Plasma [2345-7] 10/25/2024 11:19 AM265 mg/dLNBlood chemistry[[id number]]?Glucose [Mass/volume] in Serum or Plasma [2345-7]10/25/2024 08:28 AM295 mg/dLNBlood chemistry[[id number]]?Glucose [Mass/volume] in Serum or Plasma [2345-7] 10/25/2024 05:14 PM232 mg/dLNBlood chemistry[[id number]]?Glucose [Mass/volume] in Serum or Plasma [2345-7]10/25/2024 11:39 AM201 mg/dLNBlood chemistry[[id number]]?Glucose [Mass/volume] in Serum or Plasma [2345-7] 10/24/2024 04:27 PM167 mg/dLNBlood chemistry[[id number]]?Glucose [Mass/volume] in Serum or Plasma [2345-7]10/24/2024 04:34 PM242 mg/dLNBlood chemistry[[id number]]?Glucose [Mass/volume] in Serum or Plasma [2345-7] 10/24/2024 11:36 AM110 mg/dLNBlood chemistry[[id number]]?Glucose [Mass/volume] in Serum or Plasma [2345-7]10/23/2024 04:03 PM337 mg/dLNBlood chemistry[[id number]]?Glucose [Mass/volume] in Serum or Plasma [2345-7] 10/23/2024 04:35 PM86 mg/dLNBlood chemistry[[id number]]?Glucose [Mass/volume] in Serum or Plasma [2345-7]10/23/2024 02:24 PM118 mg/dLNBlood chemistry[[id number]]?Glucose [Mass/volume] in Serum or Plasma [2345-7] 10/22/2024 11:12 AM139 mg/dLNBlood chemistry[[id number]]?Glucose [Mass/volume] in Serum or Plasma [2345-7]10/22/2024 08:33 AM164 mg/dLNBlood chemistry[[id number]]?Glucose [Mass/volume] in Serum or Plasma [2345-7] 10/22/2024 04:19 PM311 mg/dLNBlood chemistry[[id number]]?Glucose [Mass/volume] in Serum or Plasma [2345-7]10/22/2024 11:13 AM121 mg/dLNBlood chemistry[[id number]]?Glucose [Mass/volume] in Serum or Plasma [2345-7] 10/21/2024 11:46 AM233 mg/dLNBlood chemistry[[id number]]?Glucose [Mass/volume] in Serum or Plasma [2345-7]10/21/2024 08:30 AM155 mg/dLNBlood chemistry[[id number]]?Glucose [Mass/volume] in Serum or Plasma [2345-7] 10/21/2024 04:15 PM182 mg/dLNBlood chemistry[[id number]]?Glucose [Mass/volume] in Serum or Plasma [2345-7]10/21/2024 11:40 AM113 mg/dLNBlood chemistry[[id number]]?Glucose [Mass/volume] in Serum or Plasma [2345-7] 10/20/2024 12:57 PM303 mg/dLNBlood chemistry[[id number]]?Glucose [Mass/volume] in Serum or Plasma [2345-7]10/20/2024 08:47 AM214 mg/dLNBlood chemistry[[id number]]?Glucose [Mass/volume] in Serum or Plasma [2345-7] 10/20/2024 04:36 PM119 mg/dLNBlood chemistry[[id number]]?Glucose [Mass/volume] in Serum or Plasma [2345-7]10/20/2024 11:08 AM123 mg/dLNBlood chemistry[[id number]]?Glucose [Mass/volume] in Serum or Plasma [2345-7] 10/19/2024 11:49 AM186 mg/dLNBlood chemistry[[id number]]?Glucose [Mass/volume] in Serum or Plasma [2345-7]10/19/2024 09:18 AM128 mg/dLNBlood chemistry[[id number]]?Glucose [Mass/volume] in Serum or Plasma [2345-7] 10/19/2024 04:26 PM268 mg/dLNBlood chemistry[[id number]]?Glucose [Mass/volume] in Serum or Plasma [2345-7]10/19/2024 12:58 PM148 mg/dLNBlood chemistry[[id number]]?Glucose [Mass/volume] in Serum or Plasma [2345-7] 10/18/2024 03:14 PM148 mg/dLNBlood chemistry[[id number]]?Glucose [Mass/volume] in Serum or Plasma [2345-7]10/18/2024 05:09 PM380 mg/dLNBlood chemistry[[id number]]?Glucose [Mass/volume] in Serum or Plasma [2345-7] 10/18/2024 09:47 AM242 mg/dLNBlood chemistry[[id number]]?Glucose [Mass/volume] in Serum or Plasma [2345-7]10/18/2024 09:29 AM134 mg/dLNBlood chemistry[[id number]]?Glucose [Mass/volume] in Serum or Plasma [2345-7] 10/17/2024 01:43 PM202 mg/dLNBlood chemistry[[id number]]?Glucose [Mass/volume] in Serum or Plasma [2345-7]10/17/2024 09:14 AM284 mg/dLNBlood chemistry[[id number]]?Glucose [Mass/volume] in Serum or Plasma [2345-7] 10/17/2024 03:56 PM152 mg/dLNBlood chemistry[[id number]]?Glucose [Mass/volume] in Serum or Plasma [2345-7]10/17/2024 11:01 AM130 mg/dLNBlood chemistry[[id number]]?Glucose [Mass/volume] in Serum or Plasma [2345-7] 10/16/2024 01:10 PM204 mg/dLNBlood chemistry[[id number]]?Glucose [Mass/volume] in Serum or Plasma [2345-7]10/16/2024 09:08 AM145 mg/dLNBlood chemistry[[id number]]?Glucose [Mass/volume] in Serum or Plasma [2345-7] 10/16/2024 03:58 PM188 mg/dLNBlood chemistry[[id number]]?Glucose [Mass/volume] in Serum or Plasma [2345-7]10/16/2024 11:16 AM134 mg/dLNBlood chemistry[[id number]]?Glucose [Mass/volume] in Serum or Plasma [2345-7] 10/15/2024 02:38 PM193 mg/dLNBlood chemistry[[id number]]?Glucose [Mass/volume] in Serum or Plasma [2345-7]10/15/2024 09:55 AM214 mg/dLNBlood chemistry[[id number]]?Glucose [Mass/volume] in Serum or Plasma [2345-7] 10/15/2024 04:17 PM325 mg/dLNBlood chemistry[[id number]]?Glucose [Mass/volume] in Serum or Plasma [2345-7]10/15/2024 11:02 AM122 mg/dLNBlood chemistry[[id number]]?Glucose [Mass/volume] in Serum or Plasma [2345-7] 10/14/2024 12:07 PM163 mg/dLNBlood chemistry[[id number]]?Glucose [Mass/volume] in Serum or Plasma [2345-7]10/14/2024 04:15 PM165 mg/dLNBlood chemistry[[id number]]?Glucose [Mass/volume] in Serum or Plasma [2345-7] 10/14/2024 10:49 AM127 mg/dLNBlood chemistry[[id number]]?Glucose [Mass/volume] in Serum or Plasma [2345-7]10/14/2024 09:18 AM310 mg/dLNBlood chemistry[[id number]]?Glucose [Mass/volume] in Serum or Plasma [2345-7] 10/13/2024 12:28 PM380 mg/dLNBlood chemistry[[id number]]?Glucose [Mass/volume] in Serum or Plasma [2345-7]10/13/2024 09:32 AM252 mg/dLNBlood chemistry[[id number]]?Glucose [Mass/volume] in Serum or Plasma [2345-7] 10/13/2024 03:55 PM135 mg/dLNBlood chemistry[[id number]]?Glucose [Mass/volume] in Serum or Plasma [2345-7]10/13/2024 11:06 AM169 mg/dLNBlood chemistry[[id number]]?Glucose [Mass/volume] in Serum or Plasma [2345-7] 10/12/2024 03:21 PM228 mg/dLNBlood chemistry[[id number]]?Glucose [Mass/volume] in Serum or Plasma [2345-7]10/06/2024 04:13 PM187 mg/dLNBlood chemistry[[id number]]?Glucose [Mass/volume] in Serum or Plasma [2345-7] 10/06/2024 11:03 AM145 mg/dLNBlood chemistry[[id number]]?Glucose [Mass/volume] in Serum or Plasma [2345-7]10/01/2024 04:18 PM224 mg/dLNBlood chemistry[[id number]]?Glucose [Mass/volume] in Serum or Plasma [2345-7] 10/01/2024 10:00 AM145 mg/dLNBlood chemistry[[id number]]?Glucose [Mass/volume] in Serum or Plasma [2345-7]10/01/2024 08:24 AM161 mg/dLNBlood chemistry[[id number]]?Glucose [Mass/volume] in Serum or Plasma [2345-7] 09/30/2024 03:18 PM143 mg/dLNBlood chemistry[[id number]]?Glucose [Mass/volume] in Serum or Plasma [2345-7]09/28/2024 04:32 PM170 mg/dLNBlood chemistry[[id number]]?Glucose [Mass/volume] in Serum or Plasma [2345-7] 09/28/2024 11:20 AM172 mg/dLNBlood chemistry[[id number]]?Glucose [Mass/volume] in Serum or Plasma [2345-7]09/28/2024 10:55 AM133 mg/dLNBlood chemistry[[id number]]?Glucose [Mass/volume] in Serum or Plasma [2345-7] 09/28/2024 08:18 AM138 mg/dLNBlood chemistry[[id number]]?Glucose [Mass/volume] in Serum or Plasma [2345-7]09/27/2024 03:51 PM181 mg/dLNBlood chemistry[[id number]]?Glucose [Mass/volume] in Serum or Plasma [2345-7] 09/27/2024 11:10 AM219 mg/dLNBlood chemistry[[id number]]?Glucose [Mass/volume] in Serum or Plasma [2345-7]09/27/2024 10:24 AM149 mg/dLNBlood chemistry[[id number]]?Glucose [Mass/volume] in Serum or Plasma [2345-7] 09/27/2024 08:31 AM160 mg/dLNBlood chemistry[[id number]]?Glucose [Mass/volume] in Serum or Plasma [2345-7]09/26/2024 04:45 PM220 mg/dLNBlood chemistry[[id number]]?Glucose [Mass/volume] in Serum or Plasma [2345-7] 09/26/2024 03:49 PM126 mg/dLNBlood chemistry[[id number]]?Glucose [Mass/volume] in Serum or Plasma [2345-7]09/26/2024 10:01 AM167 mg/dLNBlood chemistry[[id number]]?Glucose [Mass/volume] in Serum or Plasma [2345-7] 09/26/2024 09:13 AM136 mg/dLNBlood chemistry[[id number]]?Glucose [Mass/volume] in Serum or Plasma [2345-7]09/25/2024 04:07 PM247 mg/dLNBlood chemistry[[id number]]?Glucose [Mass/volume] in Serum or Plasma [2345-7] 09/25/2024 02:59 PM205 mg/dLNBlood chemistry[[id number]]?Glucose [Mass/volume] in Serum or Plasma [2345-7]09/25/2024 11:55 AM163 mg/dLNBlood chemistry[[id number]]?Glucose [Mass/volume] in Serum or Plasma [2345-7] 09/25/2024 09:31 AM393 mg/dLNBlood chemistry[[id number]]?Glucose [Mass/volume] in Serum or Plasma [2345-7]09/24/2024 05:13 PM180 mg/dLNBlood chemistry[[id number]]?Glucose [Mass/volume] in Serum or Plasma [2345-7] 09/24/2024 11:36 AM186 mg/dLNBlood chemistry[[id number]]?Glucose [Mass/volume] in Serum or Plasma [2345-7]09/24/2024 10:14 AM126 mg/dLNBlood chemistry[[id number]]?Glucose [Mass/volume] in Serum or Plasma [2345-7] 09/24/2024 08:45 AM169 mg/dLNBlood chemistry[[id number]]?Glucose [Mass/volume] in Serum or Plasma [2345-7]09/23/2024 04:32 PM181 mg/dLNBlood chemistry[[id number]]?Glucose [Mass/volume] in Serum or Plasma [2345-7] 09/23/2024 11:23 AM195 mg/dLNBlood chemistry[[id number]]?Glucose [Mass/volume] in Serum or Plasma [2345-7]09/23/2024 10:03 AM120 mg/dLNBlood chemistry[[id number]]?Glucose [Mass/volume] in Serum or Plasma [2345-7] 09/23/2024 08:35 AM265 mg/dLNBlood chemistry[[id number]]?Glucose [Mass/volume] in Serum or Plasma [2345-7]09/22/2024 03:49 PM178 mg/dLNBlood chemistry[[id number]]?Glucose [Mass/volume] in Serum or Plasma [2345-7] 09/22/2024 11:23 AM267 mg/dLNBlood chemistry[[id number]]?Glucose [Mass/volume] in Serum or Plasma [2345-7]09/22/2024 10:31 AM124 mg/dLNBlood chemistry[[id number]]?Glucose [Mass/volume] in Serum or Plasma [2345-7] 09/22/2024 08:29 AM273 mg/dLNBlood chemistry[[id number]]?Glucose [Mass/volume] in Serum or Plasma [2345-7]09/21/2024 04:30 PM211 mg/dLNBlood chemistry[[id number]]?Glucose [Mass/volume] in Serum or Plasma [2345-7] 09/21/2024 11:12 AM276 mg/dLNBlood chemistry[[id number]]?Glucose [Mass/volume] in Serum or Plasma [2345-7]09/21/2024 10:46 AM145 mg/dLNBlood chemistry[[id number]]?Glucose [Mass/volume] in Serum or Plasma [2345-7] 09/21/2024 08:24 AM247 mg/dLNBlood chemistry[[id number]]?Glucose [Mass/volume] in Serum or Plasma [2345-7]09/20/2024 03:53 PM221 mg/dLNBlood chemistry[[id number]]?Glucose [Mass/volume] in Serum or Plasma [2345-7] 09/20/2024 01:59 PM148 mg/dLNBlood chemistry[[id number]]?Glucose [Mass/volume] in Serum or Plasma [2345-7]09/20/2024 10:28 AM142 mg/dLNBlood chemistry[[id number]]?Glucose [Mass/volume] in Serum or Plasma [2345-7] 09/20/2024 08:26 AM206 mg/dLNBlood chemistry[[id number]]?Glucose [Mass/volume] in Serum or Plasma [2345-7]09/19/2024 04:11 PM212 mg/dLNBlood chemistry[[id number]]?Glucose [Mass/volume] in Serum or Plasma [2345-7] 09/19/2024 11:47 AM161 mg/dLNBlood chemistry[[id number]]?Glucose [Mass/volume] in Serum or Plasma [2345-7]09/19/2024 11:06 AM265 mg/dLNBlood chemistry[[id number]]?Glucose [Mass/volume] in Serum or Plasma [2345-7] 09/19/2024 08:33 AM255 mg/dLNBlood chemistry[[id number]]?Glucose [Mass/volume] in Serum or Plasma [2345-7]09/18/2024 05:00 PM211 mg/dLNBlood chemistry[[id number]]?Glucose [Mass/volume] in Serum or Plasma [2345-7] 09/18/2024 11:32 AM224 mg/dLNBlood chemistry[[id number]]?Glucose [Mass/volume] in Serum or Plasma [2345-7]09/18/2024 10:10 AM150 mg/dLNBlood chemistry[[id number]]?Glucose [Mass/volume] in Serum or Plasma [2345-7] 09/18/2024 08:46 AM196 mg/dLNBlood chemistry[[id number]]?Glucose [Mass/volume] in Serum or Plasma [2345-7]09/17/2024 04:20 PM155 mg/dLNBlood chemistry[[id number]]?Glucose [Mass/volume] in Serum or Plasma [2345-7] 09/17/2024 11:43 AM308 mg/dLNBlood chemistry[[id number]]?Glucose [Mass/volume] in Serum or Plasma [2345-7]09/17/2024 09:08 AM102 mg/dLNBlood chemistry[[id number]]?Glucose [Mass/volume] in Serum or Plasma [2345-7] 09/17/2024 08:32 AM239 mg/dLNBlood chemistry[[id number]]?Glucose [Mass/volume] in Serum or Plasma [2345-7]09/16/2024 05:30 PM185 mg/dLNBlood chemistry[[id number]]?Glucose [Mass/volume] in Serum or Plasma [2345-7] 09/16/2024 12:25 PM150 mg/dLNBlood chemistry[[id number]]?Glucose [Mass/volume] in Serum or Plasma [2345-7]09/16/2024 10:55 AM141 mg/dLNBlood chemistry[[id number]]?Glucose [Mass/volume] in Serum or Plasma [2345-7] 09/16/2024 08:17 AM238 mg/dLNBlood chemistry[[id number]]?Glucose [Mass/volume] in Serum or Plasma [2345-7]09/15/2024 04:08 PM194 mg/dLNBlood chemistry[[id number]]?Glucose [Mass/volume] in Serum or Plasma [2345-7] 09/15/2024 03:39 PM201 mg/dLNBlood chemistry[[id number]]?Glucose [Mass/volume] in Serum or Plasma [2345-7]09/15/2024 10:08 AM122 mg/dLNBlood chemistry[[id number]]?Glucose [Mass/volume] in Serum or Plasma [2345-7] 09/15/2024 09:25 AM186 mg/dLNBlood chemistry[[id number]]?Glucose [Mass/volume] in Serum or Plasma [2345-7]09/14/2024 04:06 PM170 mg/dLNBlood chemistry[[id number]]?Glucose [Mass/volume] in Serum or Plasma [2345-7] 09/14/2024 11:18 AM301 mg/dLNBlood chemistry[[id number]]?Glucose [Mass/volume] in Serum or Plasma [2345-7]09/14/2024 10:57 AM123 mg/dLNBlood chemistry[[id number]]?Glucose [Mass/volume] in Serum or Plasma [2345-7] 09/14/2024 08:19 AM197 mg/dLNBlood chemistry[[id number]]?Glucose [Mass/volume] in Serum or Plasma [2345-7]09/13/2024 05:07 PM192 mg/dLNBlood chemistry[[id number]]?Glucose [Mass/volume] in Serum or Plasma [2345-7] 09/13/2024 11:09 AM117 mg/dLNBlood chemistry[[id number]]?Glucose [Mass/volume] in Serum or Plasma [2345-7]09/13/2024 10:48 AM171 mg/dLNBlood chemistry[[id number]]?Glucose [Mass/volume] in Serum or Plasma [2345-7] 09/13/2024 08:15 AM228 mg/dLNBlood chemistry[[id number]]?Glucose [Mass/volume] in Serum or Plasma [2345-7]09/12/2024 04:25 PM289 mg/dLNBlood chemistry[[id number]]?Glucose [Mass/volume] in Serum or Plasma [2345-7] 09/12/2024 02:01 PM148 mg/dLNBlood chemistry[[id number]]?Glucose [Mass/volume] in Serum or Plasma [2345-7]09/12/2024 11:45 AM127 mg/dLNBlood chemistry[[id number]]?Glucose [Mass/volume] in Serum or Plasma [2345-7] 09/12/2024 08:39 AM168 mg/dLNBlood chemistry[[id number]]?Glucose [Mass/volume] in Serum or Plasma [2345-7]09/11/2024 04:21 PM144 mg/dLNBlood chemistry[[id number]]?Glucose [Mass/volume] in Serum or Plasma [2345-7] 09/11/2024 02:09 PM147 mg/dLNBlood chemistry[[id number]]?Glucose [Mass/volume] in Serum or Plasma [2345-7]09/11/2024 12:02 PM145 mg/dLNBlood chemistry[[id number]]?Glucose [Mass/volume] in Serum or Plasma [2345-7] 09/11/2024 10:13 AM132 mg/dLNBlood chemistry[[id number]]?Glucose [Mass/volume] in Serum or Plasma [2345-7]09/10/2024 03:10 PM391 mg/dLNBlood chemistry[[id number]]?Glucose [Mass/volume] in Serum or Plasma [2345-7] 09/10/2024 02:38 PM134 mg/dLNBlood chemistry[[id number]]?Glucose [Mass/volume] in Serum or Plasma [2345-7]09/10/2024 12:19 PM164 mg/dLNBlood chemistry[[id number]]?Glucose [Mass/volume] in Serum or Plasma [2345-7] 09/10/2024 08:32 AM200 mg/dLNBlood chemistry[[id number]]?Glucose [Mass/volume] in Serum or Plasma [2345-7]09/09/2024 04:37 PM173 mg/dLNBlood chemistry[[id number]]?Glucose [Mass/volume] in Serum or Plasma [2345-7] 09/09/2024 10:49 AM267 mg/dLNBlood chemistry[[id number]]?Glucose [Mass/volume] in Serum or Plasma [2345-7]09/09/2024 10:01 AM106 mg/dLNBlood chemistry[[id number]]?Glucose [Mass/volume] in Serum or Plasma [2345-7] 09/09/2024 08:26 AM262 mg/dLNBlood chemistry[[id number]]?Glucose [Mass/volume] in Serum or Plasma [2345-7]09/08/2024 04:24 PM204 mg/dLNBlood chemistry[[id number]]?Glucose [Mass/volume] in Serum or Plasma [2345-7] 09/08/2024 11:19 AM212 mg/dLNBlood chemistry[[id number]]?Glucose [Mass/volume] in Serum or Plasma [2345-7]09/08/2024 10:04 AM116 mg/dLNBlood chemistry[[id number]]?Glucose [Mass/volume] in Serum or Plasma [2345-7] 09/08/2024 09:03 AM230 mg/dLNBlood chemistry[[id number]]?Glucose [Mass/volume] in Serum or Plasma [2345-7]09/07/2024 03:10 PM177 mg/dLNBlood chemistry[[id number]]?Glucose [Mass/volume] in Serum or Plasma [2345-7] 09/07/2024 11:19 AM250 mg/dLNBlood chemistry[[id number]]?Glucose [Mass/volume] in Serum or Plasma [2345-7]09/07/2024 10:14 AM93 mg/dLNBlood chemistry[[id number]]?Glucose [Mass/volume] in Serum or Plasma [2345-7] 09/07/2024 07:48 AM190 mg/dLNBlood chemistry[[id number]]?Glucose [Mass/volume] in Serum or Plasma [2345-7]09/06/2024 04:20 PM158 mg/dLNBlood chemistry[[id number]]?Glucose [Mass/volume] in Serum or Plasma [2345-7] 09/06/2024 01:34 PM209 mg/dLNBlood chemistry[[id number]]?Glucose [Mass/volume] in Serum or Plasma [2345-7]09/06/2024 11:01 AM119 mg/dLNBlood chemistry[[id number]]?Glucose [Mass/volume] in Serum or Plasma [2345-7] 09/06/2024 08:50 AM189 mg/dLNBlood chemistry[[id number]]?Glucose [Mass/volume] in Serum or Plasma [2345-7]09/05/2024 03:49 PM174 mg/dLNBlood chemistry[[id number]]?Glucose [Mass/volume] in Serum or Plasma [2345-7] 09/05/2024 11:33 AM125 mg/dLNBlood chemistry[[id number]]?Glucose [Mass/volume] in Serum or Plasma [2345-7]09/05/2024 11:19 AM205 mg/dLNBlood chemistry[[id number]]?Glucose [Mass/volume] in Serum or Plasma [2345-7] 09/05/2024 09:34 AM245 mg/dLNBlood chemistry[[id number]]?Glucose [Mass/volume] in Serum or Plasma [2345-7]09/04/2024 04:30 PM246 mg/dLNBlood chemistry[[id number]]?Glucose [Mass/volume] in Serum or Plasma [2345-7] 09/04/2024 11:32 AM178 mg/dLNBlood chemistry[[id number]]?Glucose [Mass/volume] in Serum or Plasma [2345-7]09/04/2024 10:14 AM123 mg/dLNBlood chemistry[[id number]]?Glucose [Mass/volume] in Serum or Plasma [2345-7] 09/04/2024 09:52 AM209 mg/dLNBlood chemistry[[id number]]?Glucose [Mass/volume] in Serum or Plasma [2345-7]09/03/2024 04:42 PM192 mg/dLNBlood chemistry[[id number]]?Glucose [Mass/volume] in Serum or Plasma [2345-7] 09/03/2024 04:10 PM159 mg/dLNBlood chemistry[[id number]]?Glucose [Mass/volume] in Serum or Plasma [2345-7]09/03/2024 11:26 AM192 mg/dLNBlood chemistry[[id number]]?Glucose [Mass/volume] in Serum or Plasma [2345-7] 09/03/2024 10:02 AM208 mg/dLNBlood chemistry[[id number]]?Glucose [Mass/volume] in Serum or Plasma [2345-7]09/02/2024 04:42 PM178 mg/dLNBlood chemistry[[id number]]?Glucose [Mass/volume] in Serum or Plasma [2345-7] 09/02/2024 10:58 AM148 mg/dLNBlood chemistry[[id number]]?Glucose [Mass/volume] in Serum or Plasma [2345-7]09/02/2024 10:10 AM122 mg/dLNBlood chemistry[[id number]]?Glucose [Mass/volume] in Serum or Plasma [2345-7] 09/02/2024 08:13 AM225 mg/dLNBlood chemistry[[id number]]?Glucose [Mass/volume] in Serum or Plasma [2345-7]09/01/2024 04:11 PM263 mg/dLNBlood chemistry[[id number]]?Glucose [Mass/volume] in Serum or Plasma [2345-7] 09/01/2024 03:25 PM134 mg/dLNBlood chemistry[[id number]]?Glucose [Mass/volume] in Serum or Plasma [2345-7]09/01/2024 10:53 AM134 mg/dLNBlood chemistry[[id number]]?Glucose [Mass/volume] in Serum or Plasma [2345-7] 09/01/2024 09:29 AM166 mg/dLNBlood chemistry[[id number]]?Glucose [Mass/volume] in Serum or Plasma [2345-7]08/31/2024 04:20 PM185 mg/dLNBlood chemistry[[id number]]?Glucose [Mass/volume] in Serum or Plasma [2345-7] 08/31/2024 10:46 AM131 mg/dLNBlood chemistry[[id number]]?Glucose [Mass/volume] in Serum or Plasma [2345-7]08/31/2024 10:31 AM198 mg/dLNBlood chemistry[[id number]]?Glucose [Mass/volume] in Serum or Plasma [2345-7] 08/31/2024 08:11 AM197 mg/dLNBlood chemistry[[id number]]?Glucose [Mass/volume] in Serum or Plasma [2345-7]08/30/2024 03:08 PM209 mg/dLNBlood chemistry[[id number]]?Glucose [Mass/volume] in Serum or Plasma [2345-7] 08/30/2024 11:39 AM240 mg/dLNBlood chemistry[[id number]]?Glucose [Mass/volume] in Serum or Plasma [2345-7]08/30/2024 11:27 AM85 mg/dLNBlood chemistry[[id number]]?Glucose [Mass/volume] in Serum or Plasma [2345-7] 08/30/2024 10:52 AM150 mg/dLNBlood chemistry[[id number]]?Glucose [Mass/volume] in Serum or Plasma [2345-7]08/29/2024 04:22 PM241 mg/dLNBlood chemistry[[id number]]?Glucose [Mass/volume] in Serum or Plasma [2345-7] 08/29/2024 03:34 PM134 mg/dLNBlood chemistry[[id number]]?Glucose [Mass/volume] in Serum or Plasma [2345-7]08/29/2024 10:10 AM133 mg/dLNBlood chemistry[[id number]]?Glucose [Mass/volume] in Serum or Plasma [2345-7] 08/29/2024 09:34 AM198 mg/dLNBlood chemistry[[id number]]?Glucose [Mass/volume] in Serum or Plasma [2345-7]08/28/2024 03:27 PM162 mg/dLNBlood chemistry[[id number]]?Glucose [Mass/volume] in Serum or Plasma [2345-7] 08/28/2024 02:22 PM115 mg/dLNBlood chemistry[[id number]]?Glucose [Mass/volume] in Serum or Plasma [2345-7]08/28/2024 10:29 AM132 mg/dLNBlood chemistry[[id number]]?Glucose [Mass/volume] in Serum or Plasma [2345-7] 08/28/2024 09:01 AM159 mg/dLNBlood chemistry[[id number]]?Glucose [Mass/volume] in Serum or Plasma [2345-7]08/27/2024 03:42 PM181 mg/dLNBlood chemistry[[id number]]?Glucose [Mass/volume] in Serum or Plasma [2345-7] 08/27/2024 10:18 AM219 mg/dLNBlood chemistry[[id number]]?Glucose [Mass/volume] in Serum or Plasma [2345-7]08/27/2024 09:37 AM158 mg/dLNBlood chemistry[[id number]]?Glucose [Mass/volume] in Serum or Plasma [2345-7] 08/27/2024 07:31 AM194 mg/dLNBlood chemistry[[id number]]?Glucose [Mass/volume] in Serum or Plasma [2345-7]08/26/2024 04:33 PM177 mg/dLNBlood chemistry[[id number]]?Glucose [Mass/volume] in Serum or Plasma [2345-7] 08/26/2024 03:42 PM128 mg/dLNBlood chemistry[[id number]]?Glucose [Mass/volume] in Serum or Plasma [2345-7]08/26/2024 10:17 AM207 mg/dLNBlood chemistry[[id number]]?Glucose [Mass/volume] in Serum or Plasma [2345-7] 08/26/2024 09:10 AM122 mg/dLNBlood chemistry[[id number]]?Glucose [Mass/volume] in Serum or Plasma [2345-7]08/25/2024 02:55 PM164 mg/dLNBlood chemistry[[id number]]?Glucose [Mass/volume] in Serum or Plasma [2345-7] 08/25/2024 02:48 PM216 mg/dLNBlood chemistry[[id number]]?Glucose [Mass/volume] in Serum or Plasma [2345-7]08/25/2024 10:08 AM145 mg/dLNBlood chemistry[[id number]]?Glucose [Mass/volume] in Serum or Plasma [2345-7] 08/25/2024 08:55 AM144 mg/dLNBlood chemistry[[id number]]?Glucose [Mass/volume] in Serum or Plasma [2345-7]08/24/2024 03:21 PM141 mg/dLNBlood chemistry[[id number]]?Glucose [Mass/volume] in Serum or Plasma [2345-7] 08/24/2024 10:34 AM222 mg/dLNBlood chemistry[[id number]]?Glucose [Mass/volume] in Serum or Plasma [2345-7]08/24/2024 09:58 AM154 mg/dLNBlood chemistry[[id number]]?Glucose [Mass/volume] in Serum or Plasma [2345-7] 08/24/2024 07:15 AM247 mg/dLNBlood chemistry[[id number]]?Glucose [Mass/volume] in Serum or Plasma [2345-7]08/23/2024 03:29 PM150 mg/dLNBlood chemistry[[id number]]?Glucose [Mass/volume] in Serum or Plasma [2345-7] 08/23/2024 02:41 PM178 mg/dLNBlood chemistry[[id number]]?Glucose [Mass/volume] in Serum or Plasma [2345-7]08/23/2024 07:55 AM173 mg/dLNBlood chemistry[[id number]]?Glucose [Mass/volume] in Serum or Plasma [2345-7] 08/23/2024 07:47 AM131 mg/dLNBlood chemistry[[id number]]?Glucose [Mass/volume] in Serum or Plasma [2345-7]08/22/2024 02:25 PM187 mg/dLNBlood chemistry[[id number]]?Glucose [Mass/volume] in Serum or Plasma [2345-7] 08/22/2024 10:46 AM188 mg/dLNBlood chemistry[[id number]]?Glucose [Mass/volume] in Serum or Plasma [2345-7]08/22/2024 10:04 AM136 mg/dLNBlood chemistry[[id number]]?Glucose [Mass/volume] in Serum or Plasma [2345-7] 08/22/2024 07:10 AM253 mg/dLNBlood chemistry[[id number]]?Glucose [Mass/volume] in Serum or Plasma [2345-7]08/21/2024 03:33 PM203 mg/dLNBlood chemistry[[id number]]?Glucose [Mass/volume] in Serum or Plasma [2345-7] 08/21/2024 10:11 AM299 mg/dLNBlood chemistry[[id number]]?Glucose [Mass/volume] in Serum or Plasma [2345-7]08/21/2024 09:13 AM144 mg/dLNBlood chemistry[[id number]]?Glucose [Mass/volume] in Serum or Plasma [2345-7] 08/21/2024 07:16 AM231 mg/dLNBlood chemistry[[id number]]?Glucose [Mass/volume] in Serum or Plasma [2345-7]08/20/2024 03:10 PM209 mg/dLNBlood chemistry[[id number]]?Glucose [Mass/volume] in Serum or Plasma [2345-7] 08/20/2024 02:48 PM147 mg/dLNBlood chemistry[[id number]]?Glucose [Mass/volume] in Serum or Plasma [2345-7]08/20/2024 10:16 AM141 mg/dLNBlood chemistry[[id number]]?Glucose [Mass/volume] in Serum or Plasma [2345-7] 08/20/2024 09:41 AM302 mg/dLNBlood chemistry[[id number]]?Glucose [Mass/volume] in Serum or Plasma [2345-7]08/19/2024 03:37 PM190 mg/dLNBlood chemistry[[id number]]?Glucose [Mass/volume] in Serum or Plasma [2345-7] 08/19/2024 01:35 PM258 mg/dLNGlucose [Mass/volume] in Serum or Plasma [2345-7] 08/19/2024 01:35 PM147 mg/dLNBlood chemistry[[id number]]?Glucose [Mass/volume] in Serum or Plasma [2345-7]08/19/2024 08:41 AM133 mg/dLNBlood chemistry[[id number]]?Glucose [Mass/volume] in Serum or Plasma [2345-7] 08/18/2024 03:51 PM214 mg/dLNBlood chemistry[[id number]]?Glucose [Mass/volume] in Serum or Plasma [2345-7]08/18/2024 01:25 PM151 mg/dLNBlood chemistry[[id number]]?Glucose [Mass/volume] in Serum or Plasma [2345-7] 08/18/2024 09:01 AM120 mg/dLNBlood chemistry[[id number]]?Glucose [Mass/volume] in Serum or Plasma [2345-7]08/18/2024 08:51 AM146 mg/dLNBlood chemistry[[id number]]?Glucose [Mass/volume] in Serum or Plasma [2345-7] 2024 03:26 PM210 mg/dLNBlood chemistry[[id number]]?Glucose [Mass/volume] in Serum or Plasma [2345-7]2024 11:18 AM223 mg/dLNBlood chemistry[[id number]]?Glucose [Mass/volume] in Serum or Plasma [2345-7] 2024 09:27 AM159 mg/dLNBlood chemistry[[id number]]?Glucose [Mass/volume] in Serum or Plasma [2345-7]2024 07:18 AM245 mg/dLNBlood chemistry[[id number]]?Glucose [Mass/volume] in Serum or Plasma [2345-7] 08/16/2024 02:40 PM240 mg/dLNBlood chemistry[[id number]]?Glucose [Mass/volume] in Serum or Plasma [2345-7]08/16/2024 10:49 AM238 mg/dLNBlood chemistry[[id number]]?Glucose [Mass/volume] in Serum or Plasma [2345-7] 08/16/2024 10:08 AM142 mg/dLNBlood chemistry[[id number]]?Glucose [Mass/volume] in Serum or Plasma [2345-7]08/16/2024 07:17 AM203 mg/dLNBlood chemistry[[id number]]?Glucose [Mass/volume] in Serum or Plasma [2345-7] 08/15/2024 03:44 PM303 mg/dLNBlood chemistry[[id number]]?Glucose [Mass/volume] in Serum or Plasma [2345-7]08/15/2024 01:06 PM116 mg/dLNBlood chemistry[[id number]]?Glucose [Mass/volume] in Serum or Plasma [2345-7] 08/15/2024 09:28 AM133 mg/dLNBlood chemistry[[id number]]?Glucose [Mass/volume] in Serum or Plasma [2345-7]08/15/2024 09:15 AM124 mg/dLNBlood chemistry[[id number]]?Glucose [Mass/volume] in Serum or Plasma [2345-7] 08/14/2024 04:44 PM160 mg/dLNBlood chemistry[[id number]]?Glucose [Mass/volume] in Serum or Plasma [2345-7]08/14/2024 12:46 PM134 mg/dLNBlood chemistry[[id number]]?Glucose [Mass/volume] in Serum or Plasma [2345-7] 08/14/2024 10:48 AM141 mg/dLNBlood chemistry[[id number]]?Glucose [Mass/volume] in Serum or Plasma [2345-7]08/14/2024 09:37 AM160 mg/dLNBlood chemistry[[id number]]?Glucose [Mass/volume] in Serum or Plasma [2345-7] 08/13/2024 02:49 PM226 mg/dLNBlood chemistry[[id number]]?Glucose [Mass/volume] in Serum or Plasma [2345-7]08/13/2024 10:21 AM243 mg/dLNBlood chemistry[[id number]]?Glucose [Mass/volume] in Serum or Plasma [2345-7] 08/13/2024 09:23 AM174 mg/dLNBlood chemistry[[id number]]?Glucose [Mass/volume] in Serum or Plasma [2345-7]08/13/2024 07:27 AM325 mg/dLNCOVID-19 Test Viral PCRnull flavor [null]08/12/2024 04:00 PMSee noteNEGCOVID-19 Test Viral PCRBlood chemistry[[id number]]?Glucose [Mass/volume] in Serum or Plasma [2345-7]08/12/2024 03:48 PM208 mg/dLNBlood chemistry[[id number]]? Glucose [Mass/volume] in Serum or Plasma [2345-7]08/12/2024 10:51 AM181 mg/dLN Blood chemistry[[id number]]?Glucose [Mass/volume] in Serum or Plasma [2345-7]08/12/2024 09:02 AM139 mg/dLNBlood chemistry[[id number]]?Glucose [Mass/volume] in Serum or Plasma [2345-7]08/12/2024 07:47 AM186 mg/dLNBlood chemistry[[id number]]?Glucose [Mass/volume] in Serum or Plasma [2345-7] 08/11/2024 03:29 PM214 mg/dLNBlood chemistry[[id number]]?Glucose [Mass/volume] in Serum or Plasma [2345-7]08/11/2024 12:05 PM241 mg/dLNBlood chemistry[[id number]]?Glucose [Mass/volume] in Serum or Plasma [2345-7] 08/11/2024 09:35 AM171 mg/dLNBlood chemistry[[id number]]?Glucose [Mass/volume] in Serum or Plasma [2345-7]08/11/2024 09:00 AM201 mg/dLNCOVID-19 Test Viral Antigennull flavor [null]08/10/2024 04:00 PMSee noteNEGCOVID-19 Test Viral AntigenBlood chemistry[[id number]]?Glucose [Mass/volume] in Serum or Plasma [2345-7]08/10/2024 03:20 PM195 mg/dLNBlood chemistry[[id number]]?Glucose [Mass/volume] in Serum or Plasma [2345-7] 08/10/2024 10:14 AM209 mg/dLNBlood chemistry[[id number]]?Glucose [Mass/volume] in Serum or Plasma [2345-7]08/10/2024 09:19 AM149 mg/dLNBlood chemistry[[id number]]?Glucose [Mass/volume] in Serum or Plasma [2345-7] 08/10/2024 07:19 AM288 mg/dLNBlood chemistry[[id number]]?Glucose [Mass/volume] in Serum or Plasma [2345-7]08/09/2024 02:28 PM202 mg/dLNBlood chemistry[[id number]]?Glucose [Mass/volume] in Serum or Plasma [2345-7] 08/09/2024 10:36 AM154 mg/dLNBlood chemistry[[id number]]?Glucose [Mass/volume] in Serum or Plasma [2345-7]08/09/2024 07:43 AM146 mg/dLNBlood chemistry[[id number]]?Glucose [Mass/volume] in Serum or Plasma [2345-7] 08/09/2024 07:33 AM257 mg/dLNBlood chemistry[[id number]]?Glucose [Mass/volume] in Serum or Plasma [2345-7]08/08/2024 03:13 PM136 mg/dLNBlood chemistry[[id number]]?Glucose [Mass/volume] in Serum or Plasma [2345-7] 08/08/2024 11:23 AM270 mg/dLNBlood chemistry[[id number]]?Glucose [Mass/volume] in Serum or Plasma [2345-7]08/08/2024 10:01 AM147 mg/dLNBlood chemistry[[id number]]?Glucose [Mass/volume] in Serum or Plasma [2345-7] 08/08/2024 08:34 AM211 mg/dLNBlood chemistry[[id number]]?Glucose [Mass/volume] in Serum or Plasma [2345-7]08/07/2024 03:35 PM158 mg/dLNBlood chemistry[[id number]]?Glucose [Mass/volume] in Serum or Plasma [2345-7] 08/07/2024 11:19 AM211 mg/dLNBlood chemistry[[id number]]?Glucose [Mass/volume] in Serum or Plasma [2345-7]08/07/2024 09:28 AM138 mg/dLNBlood chemistry[[id number]]?Glucose [Mass/volume] in Serum or Plasma [2345-7] 08/07/2024 07:25 AM136 mg/dLNBlood chemistry[[id number]]?Glucose [Mass/volume] in Serum or Plasma [2345-7]08/06/2024 03:20 PM165 mg/dLNBlood chemistry[[id number]]?Glucose [Mass/volume] in Serum or Plasma [2345-7] 08/06/2024 11:45 AM205 mg/dLNBlood chemistry[[id number]]?Glucose [Mass/volume] in Serum or Plasma [2345-7]08/06/2024 11:39 AM144 mg/dLNBlood chemistry[[id number]]?Glucose [Mass/volume] in Serum or Plasma [2345-7] 08/06/2024 09:49 AM186 mg/dLNBlood chemistry[[id number]]?Glucose [Mass/volume] in Serum or Plasma [2345-7]08/05/2024 03:31 PM304 mg/dLNBlood chemistry[[id number]]?Glucose [Mass/volume] in Serum or Plasma [2345-7] 08/05/2024 02:59 PM145 mg/dLNBlood chemistry[[id number]]?Glucose [Mass/volume] in Serum or Plasma [2345-7]08/05/2024 10:08 AM137 mg/dLNBlood chemistry[[id number]]?Glucose [Mass/volume] in Serum or Plasma [2345-7] 08/05/2024 08:59 AM188 mg/dLNBlood chemistry[[id number]]?Glucose [Mass/volume] in Serum or Plasma [2345-7]08/04/2024 01:47 PM172 mg/dLNBlood chemistry[[id number]]?Glucose [Mass/volume] in Serum or Plasma [2345-7] 08/04/2024 01:12 PM149 mg/dLNBlood chemistry[[id number]]?Glucose [Mass/volume] in Serum or Plasma [2345-7]08/04/2024 09:01 AM177 mg/dLNBlood chemistry[[id number]]?Glucose [Mass/volume] in Serum or Plasma [2345-7] 08/04/2024 08:00 AM214 mg/dLNBlood chemistry[[id number]]?Glucose [Mass/volume] in Serum or Plasma [2345-7]08/03/2024 03:20 PM173 mg/dLNBlood chemistry[[id number]]?Glucose [Mass/volume] in Serum or Plasma [2345-7] 08/03/2024 10:20 AM178 mg/dLNBlood chemistry[[id number]]?Glucose [Mass/volume] in Serum or Plasma [2345-7]08/03/2024 09:44 AM125 mg/dLNBlood chemistry[[id number]]?Glucose [Mass/volume] in Serum or Plasma [2345-7] 08/03/2024 07:19 AM242 mg/dLNBlood chemistry[[id number]]?Glucose [Mass/volume] in Serum or Plasma [2345-7]08/02/2024 03:17 PM180 mg/dLNBlood chemistry[[id number]]?Glucose [Mass/volume] in Serum or Plasma [2345-7] 08/02/2024 09:39 AM287 mg/dLNBlood chemistry[[id number]]?Glucose [Mass/volume] in Serum or Plasma [2345-7]08/02/2024 09:03 AM150 mg/dLNBlood chemistry[[id number]]?Glucose [Mass/volume] in Serum or Plasma [2345-7] 08/02/2024 07:17 AM293 mg/dLNBlood chemistry[[id number]]?Glucose [Mass/volume] in Serum or Plasma [2345-7]08/01/2024 03:09 PM388 mg/dLNBlood chemistry[[id number]]?Glucose [Mass/volume] in Serum or Plasma [2345-7] 08/01/2024 01:00 PM210 mg/dLNBlood chemistry[[id number]]?Glucose [Mass/volume] in Serum or Plasma [2345-7]08/01/2024 09:13 AM159 mg/dLNBlood chemistry[[id number]]?Glucose [Mass/volume] in Serum or Plasma [2345-7] 08/01/2024 07:49 AM204 mg/dLNBlood chemistry[[id number]]?Glucose [Mass/volume] in Serum or Plasma [2345-7]07/31/2024 03:40 PM215 mg/dLNBlood chemistry[[id number]]?Glucose [Mass/volume] in Serum or Plasma [2345-7] 07/31/2024 01:57 PM137 mg/dLNBlood chemistry[[id number]]?Glucose [Mass/volume] in Serum or Plasma [2345-7]07/31/2024 10:15 AM148 mg/dLNBlood chemistry[[id number]]?Glucose [Mass/volume] in Serum or Plasma [2345-7] 07/31/2024 09:55 AM159 mg/dLNBlood chemistry[[id number]]?Glucose [Mass/volume] in Serum or Plasma [2345-7]07/30/2024 03:11 PM137 mg/dLNBlood chemistry[[id number]]?Glucose [Mass/volume] in Serum or Plasma [2345-7] 07/30/2024 10:05 AM223 mg/dLNBlood chemistry[[id number]]?Glucose [Mass/volume] in Serum or Plasma [2345-7]07/30/2024 09:23 AM172 mg/dLNBlood chemistry[[id number]]?Glucose [Mass/volume] in Serum or Plasma [2345-7] 07/30/2024 07:34 AM233 mg/dLNBlood chemistry[[id number]]?Glucose [Mass/volume] in Serum or Plasma [2345-7]07/29/2024 02:52 PM365 mg/dLNBlood chemistry[[id number]]?Glucose [Mass/volume] in Serum or Plasma [2345-7] 07/29/2024 10:39 AM378 mg/dLNBlood chemistry[[id number]]?Glucose [Mass/volume] in Serum or Plasma [2345-7]07/29/2024 09:53 AM138 mg/dLNBlood chemistry[[id number]]?Glucose [Mass/volume] in Serum or Plasma [2345-7] 07/29/2024 07:34 AM269 mg/dLNBlood chemistry[[id number]]?Glucose [Mass/volume] in Serum or Plasma [2345-7]07/28/2024 02:58 PM194 mg/dLNBlood chemistry[[id number]]?Glucose [Mass/volume] in Serum or Plasma [2345-7] 07/28/2024 11:12 AM264 mg/dLNBlood chemistry[[id number]]?Glucose [Mass/volume] in Serum or Plasma [2345-7]07/28/2024 09:15 AM126 mg/dLNBlood chemistry[[id number]]?Glucose [Mass/volume] in Serum or Plasma [2345-7] 07/28/2024 07:30 AM148 mg/dLNBlood chemistry[[id number]]?Glucose [Mass/volume] in Serum or Plasma [2345-7]07/27/2024 02:31 PM272 mg/dLNBlood chemistry[[id number]]?Glucose [Mass/volume] in Serum or Plasma [2345-7] 07/27/2024 10:23 AM234 mg/dLNBlood chemistry[[id number]]?Glucose [Mass/volume] in Serum or Plasma [2345-7]07/27/2024 09:47 AM174 mg/dLNBlood chemistry[[id number]]?Glucose [Mass/volume] in Serum or Plasma [2345-7] 07/27/2024 07:27 AM260 mg/dLNBlood chemistry[[id number]]?Glucose [Mass/volume] in Serum or Plasma [2345-7]07/26/2024 02:39 PM271 mg/dLNBlood chemistry[[id number]]?Glucose [Mass/volume] in Serum or Plasma [2345-7] 07/26/2024 01:32 PM245 mg/dLNBlood chemistry[[id number]]?Glucose [Mass/volume] in Serum or Plasma [2345-7]07/26/2024 10:19 AM195 mg/dLNBlood chemistry[[id number]]?Glucose [Mass/volume] in Serum or Plasma [2345-7] 07/26/2024 09:24 AM218 mg/dLNBlood chemistry[[id number]]?Glucose [Mass/volume] in Serum or Plasma [2345-7]07/25/2024 04:49 PM286 mg/dLNBlood chemistry[[id number]]?Glucose [Mass/volume] in Serum or Plasma [2345-7] 07/25/2024 10:33 AM213 mg/dLNBlood chemistry[[id number]]?Glucose [Mass/volume] in Serum or Plasma [2345-7]07/25/2024 08:50 AM176 mg/dLNBlood chemistry[[id number]]?Glucose [Mass/volume] in Serum or Plasma [2345-7] 07/25/2024 07:30 AM221 mg/dLNBlood chemistry[[id number]]?Glucose [Mass/volume] in Serum or Plasma [2345-7]07/24/2024 03:46 PM256 mg/dLNBlood chemistry[[id number]]?Glucose [Mass/volume] in Serum or Plasma [2345-7] 07/24/2024 03:41 PM162 mg/dLNBlood chemistry[[id number]]?Glucose [Mass/volume] in Serum or Plasma [2345-7]07/24/2024 09:03 AM198 mg/dLNBlood chemistry[[id number]]?Glucose [Mass/volume] in Serum or Plasma [2345-7] 07/23/2024 03:15 PM256 mg/dLNBlood chemistry[[id number]]?Glucose [Mass/volume] in Serum or Plasma [2345-7]07/23/2024 02:36 PM148 mg/dLNBlood chemistry[[id number]]?Glucose [Mass/volume] in Serum or Plasma [2345-7] 07/23/2024 09:52 AM171 mg/dLNBlood chemistry[[id number]]?Glucose [Mass/volume] in Serum or Plasma [2345-7]07/23/2024 08:36 AM254 mg/dLNBlood chemistry[[id number]]?Glucose [Mass/volume] in Serum or Plasma [2345-7] 07/22/2024 02:51 PM254 mg/dLNBlood chemistry[[id number]]?Glucose [Mass/volume] in Serum or Plasma [2345-7]07/22/2024 10:13 AM277 mg/dLNBlood chemistry[[id number]]?Glucose [Mass/volume] in Serum or Plasma [2345-7] 07/22/2024 09:56 AM139 mg/dLNBlood chemistry[[id number]]?Glucose [Mass/volume] in Serum or Plasma [2345-7]07/22/2024 07:28 AM232 mg/dLNBlood chemistry[[id number]]?Glucose [Mass/volume] in Serum or Plasma [2345-7] 07/21/2024 02:16 PM213 mg/dLNBlood chemistry[[id number]]?Glucose [Mass/volume] in Serum or Plasma [2345-7]07/21/2024 11:12 AM229 mg/dLNBlood chemistry[[id number]]?Glucose [Mass/volume] in Serum or Plasma [2345-7] 07/21/2024 09:14 AM155 mg/dLNBlood chemistry[[id number]]?Glucose [Mass/volume] in Serum or Plasma [2345-7]07/21/2024 07:22 AM225 mg/dLNBlood chemistry[[id number]]?Glucose [Mass/volume] in Serum or Plasma [2345-7] 07/20/2024 02:33 PM185 mg/dLNBlood chemistry[[id number]]?Glucose [Mass/volume] in Serum or Plasma [2345-7]07/20/2024 10:15 AM275 mg/dLNBlood chemistry[[id number]]?Glucose [Mass/volume] in Serum or Plasma [2345-7] 07/20/2024 09:50 AM152 mg/dLNBlood chemistry[[id number]]?Glucose [Mass/volume] in Serum or Plasma [2345-7]07/20/2024 07:15 AM198 mg/dLNBlood chemistry[[id number]]?Glucose [Mass/volume] in Serum or Plasma [2345-7] 07/19/2024 02:42 PM203 mg/dLNBlood chemistry[[id number]]?Glucose [Mass/volume] in Serum or Plasma [2345-7]07/19/2024 10:18 AM167 mg/dLNBlood chemistry[[id number]]?Glucose [Mass/volume] in Serum or Plasma [2345-7] 07/19/2024 09:16 AM178 mg/dLNBlood chemistry[[id number]]?Glucose [Mass/volume] in Serum or Plasma [2345-7]07/19/2024 07:27 AM197 mg/dLNBlood chemistry[[id number]]?Glucose [Mass/volume] in Serum or Plasma [2345-7] 07/18/2024 03:55 PM340 mg/dLNBlood chemistry[[id number]]?Glucose [Mass/volume] in Serum or Plasma [2345-7]07/18/2024 02:18 PM132 mg/dLNBlood chemistry[[id number]]?Glucose [Mass/volume] in Serum or Plasma [2345-7] 07/18/2024 09:00 AM170 mg/dLNBlood chemistry[[id number]]?Glucose [Mass/volume] in Serum or Plasma [2345-7]07/18/2024 08:00 AM149 mg/dLNBlood chemistry[[id number]]?Glucose [Mass/volume] in Serum or Plasma [2345-7] 07/17/2024 03:46 PM240 mg/dLNBlood chemistry[[id number]]?Glucose [Mass/volume] in Serum or Plasma [2345-7]07/17/2024 02:19 PM197 mg/dLNBlood chemistry[[id number]]?Glucose [Mass/volume] in Serum or Plasma [2345-7] 07/17/2024 10:29 AM350 mg/dLNBlood chemistry[[id number]]?Glucose [Mass/volume] in Serum or Plasma [2345-7]07/17/2024 08:09 AM148 mg/dLNBlood chemistry[[id number]]?Glucose [Mass/volume] in Serum or Plasma [2345-7] 07/16/2024 03:43 PM172 mg/dLNBlood chemistry[[id number]]?Glucose [Mass/volume] in Serum or Plasma [2345-7]07/16/2024 10:10 AM355 mg/dLNBlood chemistry[[id number]]?Glucose [Mass/volume] in Serum or Plasma [2345-7] 07/16/2024 10:02 AM118 mg/dLNBlood chemistry[[id number]]?Glucose [Mass/volume] in Serum or Plasma [2345-7]07/16/2024 07:37 AM148 mg/dLNBlood chemistry[[id number]]?Glucose [Mass/volume] in Serum or Plasma [2345-7] 07/15/2024 03:28 PM99 mg/dLNBlood chemistry[[id number]]?Glucose [Mass/volume] in Serum or Plasma [2345-7]07/15/2024 10:26 AM231 mg/dLNBlood chemistry[[id number]]?Glucose [Mass/volume] in Serum or Plasma [2345-7] 07/15/2024 09:00 AM135 mg/dLNBlood chemistry[[id number]]?Glucose [Mass/volume] in Serum or Plasma [2345-7]07/15/2024 07:16 AM273 mg/dLNBlood chemistry[[id number]]?Glucose [Mass/volume] in Serum or Plasma [2345-7] 07/14/2024 10:18 AM284 mg/dLNBlood chemistry[[id number]]?Glucose [Mass/volume] in Serum or Plasma [2345-7]07/14/2024 09:03 AM141 mg/dLNBlood chemistry[[id number]]?Glucose [Mass/volume] in Serum or Plasma [2345-7] 07/14/2024 07:35 AM271 mg/dLNBlood chemistry[[id number]]?Glucose [Mass/volume] in Serum or Plasma [2345-7]07/14/2024 05:27 AM226 mg/dLNBlood chemistry[[id number]]?Glucose [Mass/volume] in Serum or Plasma [2345-7] 07/13/2024 03:34 PM221 mg/dLNBlood chemistry[[id number]]?Glucose [Mass/volume] in Serum or Plasma [2345-7]07/13/2024 10:59 AM254 mg/dLNBlood chemistry[[id number]]?Glucose [Mass/volume] in Serum or Plasma [2345-7] 07/13/2024 09:38 AM148 mg/dLNBlood chemistry[[id number]]?Glucose [Mass/volume] in Serum or Plasma [2345-7]07/13/2024 07:20 AM289 mg/dLNBlood chemistry[[id number]]?Glucose [Mass/volume] in Serum or Plasma [2345-7] 07/12/2024 02:55 PM177 mg/dLNBlood chemistry[[id number]]?Glucose [Mass/volume] in Serum or Plasma [2345-7]07/12/2024 01:30 PM187 mg/dLNBlood chemistry[[id number]]?Glucose [Mass/volume] in Serum or Plasma [2345-7] 07/12/2024 09:35 AM143 mg/dLNBlood chemistry[[id number]]?Glucose [Mass/volume] in Serum or Plasma [2345-7]07/12/2024 09:10 AM223 mg/dLNBlood chemistry[[id number]]?Glucose [Mass/volume] in Serum or Plasma [2345-7] 07/11/2024 03:59 PM175 mg/dLNBlood chemistry[[id number]]?Glucose [Mass/volume] in Serum or Plasma [2345-7]07/11/2024 10:21 AM175 mg/dLNBlood chemistry[[id number]]?Glucose [Mass/volume] in Serum or Plasma [2345-7] 07/11/2024 10:03 AM164 mg/dLNBlood chemistry[[id number]]?Glucose [Mass/volume] in Serum or Plasma [2345-7]07/11/2024 07:14 AM191 mg/dLNBlood chemistry[[id number]]?Glucose [Mass/volume] in Serum or Plasma [2345-7] 07/10/2024 04:46 PM134 mg/dLNBlood chemistry[[id number]]?Glucose [Mass/volume] in Serum or Plasma [2345-7]07/10/2024 02:52 PM147 mg/dLNBlood chemistry[[id number]]?Glucose [Mass/volume] in Serum or Plasma [2345-7] 07/10/2024 11:17 AM270 mg/dLNBlood chemistry[[id number]]?Glucose [Mass/volume] in Serum or Plasma [2345-7]07/10/2024 09:17 AM178 mg/dLNBlood chemistry[[id number]]?Glucose [Mass/volume] in Serum or Plasma [2345-7] 07/10/2024 08:38 AM173 mg/dLNBlood chemistry[[id number]]?Glucose [Mass/volume] in Serum or Plasma [2345-7]07/09/2024 02:54 PM194 mg/dLNBlood chemistry[[id number]]?Glucose [Mass/volume] in Serum or Plasma [2345-7] 07/09/2024 09:33 AM173 mg/dLNBlood chemistry[[id number]]?Glucose [Mass/volume] in Serum or Plasma [2345-7]07/08/2024 03:16 PM248 mg/dLNBlood chemistry[[id number]]?Glucose [Mass/volume] in Serum or Plasma [2345-7] 07/08/2024 01:33 PM165 mg/dLNCOVID-19 Test Viral Antigennull flavor [null] 07/08/2024 12:10 PMSee noteNEGCOVID-19 Test Viral AntigenBlood chemistry[[id number]]?Glucose [Mass/volume] in Serum or Plasma [2345-7] 07/08/2024 09:35 AM117 mg/dLNBlood chemistry[[id number]]?Glucose [Mass/volume] in Serum or Plasma [2345-7]07/08/2024 08:18 AM173 mg/dLN Allergies, adverse reactions, alerts No known allergies and adverse reactions Immunizations Vaccine Route Date Status COVID-19 Vaccine Unassigned Route of Administration Refused Influenza Vaccine Unassigned Route of Administration 1 Completed COVID-19 Vaccine Unassigned Route of Administration Refused Medications Medication Instructions Route Dosage Frequency Start Date Stop Date Indications Status Lamictal (lamotrigine) 25 mg tablet (Lamictal (lamotrigine) ) 1 tablet, oral, Once A Day, mood stabilizer oral 1.0 1.0 d 11/04/192024 Anxiety disorder, unspecified Active aspirin 81 mg tablet,chewabl e (aspirin) 81 mg, oral, Once A Day oral 1.0 1.0 d 11/08/2024 Cerebral infarction, unspecifiedActiveBrilinta (ticagrelor) 90 mg tablet (Brilinta (ticagrelor))90 mg, oral, Twice A Dayoral1.012.0 h0503/ Cerebral infarction, unspecifiedActivePaxlovid (nirmatrelvir-ritonavir) 150-100 mg tablets,dose pack (Paxlovid (nirmatrelvir-ritonavir))two tablets, oral, Twice A Dayoral1.012.0 h0501/[id number] acute respiratory diseaseActive magnesium oxide 400 mg (241.3 mg magnesium) tablet (magnesium oxide)1 tablet, oral, Once A Dayoral1.01.0 d0503/5Anemia, unspecifiedActive trazodone 150 mg tablet (trazodone)0.5 tablet, oral, At Bedtimeoral1. Primary insomniaActiveImodium A-D (loperamide) 2 mg tablet (Imodium A-D (loperamide))2 mg, oral, Every 6 Hours - PRNoral1.06.0 h05ActiveSenna Lax (sennosides) 8.6 mg tablet (Senna Lax (sennosides))2 tabs, oral, Once A Day - PRNoral1.01.0 d0503/5Constipation, unspecifiedActivepolyethylene glycol 3350 17 gram/dose powder (polyethylene glycol 3350)17 grams, oral, Once A Day - PRN, for constipationoral1.01.0 d05ActiveFerrex 150 (polysaccharide iron complex) 150 mg iron capsule (Ferrex 150 (polysaccharide iron complex))1 capsule, oral, Once A Day Every Other Dayoral1.01.0 01/08/2025 Anemia, unspecifiedActivefolic acid 1 mg tablet (folic acid)1 tablet, oral, Once A Day, deficiencyoral1.01.0 d05ActiveVitamin C (ascorbic acid (vitamin c)) 500 mg tablet (Vitamin C (ascorbic acid (vitamin c)))1 tablet, oral, Once A Dayoral1.01.0 d05Activesennosides-docusate sodium 8.6-50 mg tablet (sennosides-docusate sodium)1 tab, oral, At Bedtime - PRNoral1.0035 5Constipation, unspecifiedActivebupropion HCl 150 mg tablet extended release 24 hr (bupropion HCl)1 tablet, oral, Once A Dayoral1.01.0 d001/19/2025 Major depressive disorder, recurrent, unspecifiedActiveBiofreeze (menthol) (menthol) 5 % gel (Biofreeze (menthol) (menthol))5%, topical, Twice A Day - PRN, apply to douglas. knees as needed for paintopical1.012.0 h0504 ActiveBiofreeze (menthol) (menthol) 5 % gel (Biofreeze (menthol) (menthol))5%, topical, Three Times A Day, apply to douglas. knees as needed for paintopical1.08.0 h05ActiveMetamucil (psyllium husk) 3.4 gram/5.4 gram powder (Metamucil (psyllium husk))1 TBSP, oral, At Bedtime, diarrheaoral1.0045Active ciprofloxacin HCl 0.3 % drops (ciprofloxacin HCl)two drops, ophthalmic (eye), Four Times A Day1.06.0 h0505/5Activeacetaminophen 500 mg tablet (acetaminophen)2 tabs, oral, Every 8 Hours - PRN, as needed for painoral1.08.0 h 5ActiveAdmelog SoloStar U-100 Insulin (insulin lispro) 100 unit/mL insulin pen (Admelog SoloStar U-100 Insulin (insulin lispro))Per Sliding Scale, subcutaneous, Before Meals and At Bedtime, If Blood Sugar is 151 to 200, give 3 Units.If Blood Sugar is 201 to 250, give 5 Units.If Blood Sugar is 251 to 300, give 7 Units.If BloodSugar is 301 to 350, give 9 Units.If Blood Sugar is 351 to 400, give 11 Units.If Blood Sugar is 401to 450, give 13 Units.subcutaneous1.0 510/Type 2 diabetes mellitus with diabetic cataractActiveaspirin 81 mg tablet,chewable (aspirin)81 mg, oral, Once A Dayoral1.01.0 d004/28/2025 Cerebral infarction, unspecifiedActiveatorvastatin 40 mg tablet (atorvastatin)40 mg, oral, At Bedtimeoral1.Pure hyperglyceridemiaActiveclotrimazole- betamethasone 1-0.05 % cream (clotrimazole-betamethasone)one application, topical, Twice A Day - PRNtopical1.012.0 h05ActiveBiofreeze (menthol) (menthol) 5 % gel (Biofreeze (menthol) (menthol))one application, topical, Three Times A Day - PRNtopical1.08.0 h004/28/2025Hemiplegia and hemiparesis following cerebral infarction affecting left non-dominant sideActiveDulcolax (bisacodyl) (bisacodyl) 10 mg suppository (Dulcolax (bisacodyl) (bisacodyl))10 mg, rectal, Once A Day - PRNrectal1.01.0 d05Constipation, unspecifiedActiveFerrex 150 (polysaccharide iron complex) 150 mg iron capsule (Ferrex 150 (polysaccharide iron complex))one capsule, oral, Once A Dayoral1.01.0 d 5Anemia, unspecifiedActivefinasteride 5 mg tablet (finasteride)5 mg, oral, Once A Dayoral1.01.0 5Benign prostatic hyperplasia with lower urinary tract symptomsActivefolic acid 1 mg tablet (folic acid)1 mg, oral, Once A Dayoral1.01.0 d05Anemia, unspecifiedActivegabapentin 100 mg capsule (gabapentin)100 mg, oral, Three Times A Dayoral1.08.0 h004/28/2025Hemiplegia and hemiparesis following cerebral infarction affecting left non-dominant sideActive insulin glargine-yfgn 100 unit/mL (3 mL) insulin pen (insulin glargine-yfgn)15 units, subcutaneous, At Bedtimesubcutaneous1.51Type 2 diabetes mellitus with diabetic cataractActiveKeppra (levetiracetam) 500 mg tablet (Keppra (levetiracetam))500 mg, oral, Twice A Dayoral1.012.0 h004/28/2025 Post traumatic seizuresActiveLexapro (escitalopram oxalate) 10 mg tablet (Lexapro (escitalopram oxalate))1 tab, oral, Once A Morningoral1.00807/15/2025Major depressive disorder, recurrent, unspecifiedActiveloperamide 2 mg capsule (loperamide)one capsule, oral, Three Times A Day - PRNoral1.08.0 h 5111/23/2024holesterolosis of gallbladderActivemagnesium oxide 400 mg (241.3 mg magnesium) tablet (magnesium oxide)1 tab, oral, Once A Dayoral1.01.0 d 04/28/2025Muscle weakness (generalized)Activemelatonin 3 mg tablet (melatonin)3 mg, oral, At Bedtimeoral1.Primary insomniaActiveMetamucil (psyllium husk) 3.4 gram/5.4 gram powder (Metamucil (psyllium husk))3.4 grams, oral, Once A Dayoral1.01.0 d004/28/2025onstipation, unspecifiedActivemetoprolol succinate 50 mg tablet extended release 24 hr (metoprolol succinate)50 mg, oral, Once A Dayoral1.01.0 04/28/2025Ventricular tachycardia, unspecifiedActiveomeprazole 20 mg capsule,delayed release(DR/EC) (omeprazole)1 capsule, oral, Once A Dayoral 1.01.0 d005/30/2025Gastro-esophageal reflux disease without esophagitisActive Miralax (polyethylene glycol 3350) 17 gram/dose powder (Miralax (polyethylene glycol 3350))17 grams, oral, Once A Dayoral1.01.0 d0 Constipation, unspecifiedActiveRemeron (mirtazapine) 15 mg tablet (Remeron (mirtazapine))1 tab, oral, At Bedtimeoral1.008Major depressive disorder, recurrent, unspecifiedActivetamsulosin 0.4 mg capsule (tamsulosin)0.4 mg, oral, At Bedtimeoral1.5Benign prostatic hyperplasia with lower urinary tract symptomsActiveBactrim DS (sulfamethoxazole-trimethoprim) 800-160 mg tablet (Bactrim DS (sulfamethoxazole-trimethoprim))1, oral, Twice A Dayoral1.012.0 h 509/01/2025Urinary tract infection, site not specifiedActivemirtazapine 30 mg tablet (mirtazapine)1 tablet, oral, At Bedtimeoral1./09/2025 Primary insomniaActivenitroglycerin 0.4 mg tablet, sublingual (nitroglycerin)0.4 mg, sublingual, Once - One Time, Give once then obtain VS and call [employer]. sublingual1./5ActiveLexapro (escitalopram oxalate) 20 mg tablet (Lexapro (escitalopram oxalate))1 tablet, oral, Once A Dayoral1.01.0 d 07/15/2025Major depressive disorder, recurrent, unspecifiedActiveFluzone High- Dose 2024- (PF) (flu vacc in3700-93(65yr up)-pf) 180 mcg/0.5 mL syringe (Fluzone High-Dose (PF) (flu vacc vu3533-22(65yr up)-pf))0.5ml, intramuscular, Once - One Timeintramuscular1.5ActiveLantus Solostar U-100 Insulin (insulin glargine) 100 unit/mL (3 mL) insulin pen (Lantus Solostar U-100 Insulin (insulin glargine))15 units, subcutaneous, At Bedtime subcutaneous.Type 2 diabetes mellitus with diabetic cataractActive Admelog SoloStar U-100 Insulin (insulin lispro) 100 unit/mL insulin pen (Admelog SoloStar U-100 Insulin (insulin lispro))Per Sliding Scale, subcutaneous, Three Times A Day, [...] 13 Units., before lunch, dinner, [facility].08.0 h1Type 2 diabetes mellitus with diabetic cataractActiveEnemeez (docusate sodium) 283 mg/5 mL enema (Enemeez (docusate sodium))1 enema, rectal, Once A Day - PRN, Step 3: If no BM by morning of day 4, administer 1 Enemeez MicroEnema in the morning. Indication for use: ConstipationStep 4: If no BM within 1 hour of administering Enemeez, contact provider.rectal1.01.0 d 5ActiveMiralax (polyethylene glycol 3350) 17 gram/dose powder (Miralax (polyethylene glycol 3350))17gm (1 capful), oral, Once A Day - PRN, Step 1: If no BM by Day 2, Mix 17gm (1 capful) in 4-8oz beverage of choice in the morning. Indication for use: Constipationoral1.01.0 d1 Activeceftriaxone 1 gram recon soln (ceftriaxone)1 gram, injection, Once - One Time, May reconstitute with lidocaine1.5Activelidocaine HCl 10 mg/mL (1 %) solution (lidocaine HCl)2.1, injection, Once - One Time, use to reconstitute ceftriaxone.1.5Activeacetic acid 0.25 % solution (acetic acid)100Mls, irrigation, Once A Day, Flush 100 Mls one time a day then 3 times a day prn as needed.irrigation1.01.0 d15Benign prostatic hyperplasia with lower urinary tract symptomsActiveColace (docusate sodium) 100 mg capsule (Colace (docusate sodium))1 capsule, oral, Once A Dayoral 1.01.0 d15Activeceftriaxone 1 gram recon soln (ceftriaxone)1 gram, injection, Once - One Time, May reconstitute with lidocaine1. 5Benign prostatic hyperplasia with lower urinary tract symptomsActive lidocaine HCl 10 mg/mL (1 %) solution (lidocaine HCl)2.1 mls, injection, Once - One Time, use to reconstitute ceftriaxone.1.5Active Vital Signs Date Vital Result Comment 11/03/2024 02:58 PM Temperature (8310-5) 98 [degF] Oxygen Saturation (09223-8)98 %Respiratory Rate (9279-1)18 /minHeart Rate (8867-4)62 /minBlood Pressure Systolic (8480-6)142 mm[Hg]Blood Pressure Diastolic (8462-4)75 mm[Hg]11/03/2024 01:00 AMTemperature (8310-5)98.2 [degF] Oxygen Saturation (79068-4)96 %Respiratory Rate (9279-1)20 /minHeart Rate (8867-4)53 /minBlood Pressure Systolic (8480-6)137 mm[Hg]Blood Pressure Diastolic (8462-4)66 mm[Hg]11/02/2024 08:40 PMTemperature (8310-5)98.3 [degF] Oxygen Saturation (89301-2)99 %Respiratory Rate (9279-1)20 /minHeart Rate (8867-4)60 /minBlood Pressure Systolic (8480-6)144 mm[Hg]Blood Pressure Diastolic (8462-4)71 mm[Hg]11/04/2024 10:16 AMTemperature (8310-5)98.1 [degF] Oxygen Saturation (68229-1)96 %Respiratory Rate (9279-1)16 /minHeart Rate (8867-4)60 /minBlood Pressure Systolic (8480-6)120 mm[Hg]Blood Pressure Diastolic (8462-4)59 mm[Hg]11/04/2024 10:17 PMTemperature (8310-5)98.2 [degF] Oxygen Saturation (41031-7)98 %Respiratory Rate (9279-1)18 /minHeart Rate (8867-4)82 /minBlood Pressure Systolic (8480-6)138 mm[Hg]Blood Pressure Diastolic (8462-4)74 mm[Hg]11/05/2024 09:04 AMTemperature (8310-5)97.9 [degF] Oxygen Saturation (81611-8)98 %Respiratory Rate (9279-1)18 /minHeart Rate (67-4)76 /minBlood Pressure Systolic (8480-6)124 mm[Hg]Blood Pressure Diastolic (8462-4)78 mm[Hg]11/05/2024 05:50 PMTemperature (8310-5)98.3 [degF] Oxygen Saturation (06921-6)95 %Respiratory Rate (9279-1)18 /minHeart Rate (8866-4)73 /minBlood Pressure Systolic (8480-6)110 mm[Hg]Blood Pressure Diastolic (8462-4)58 mm[Hg]11/05/2024 12:32 PMBody Weight (76540-2)198 [lb_av] Body Mass Index (66720-5)28.41 kg/m211/06/2024 12:23 PMTemperature (8310-5)98.1 [degF]Oxygen Saturation (58063-7)96 %Respiratory Rate (9279-1)16 /minHeart Rate (8866-4)72 /minBlood Pressure Systolic (8480-6)120 mm[Hg]Blood Pressure Diastolic (8462-4)68 mm[Hg]11/07/2024 09:41 PMTemperature (8310-5)98.3 [degF] Oxygen Saturation (98391-3)98 %Respiratory Rate (9279-1)16 /minHeart Rate (8866-4)70 /minBlood Pressure Systolic (8480-6)118 mm[Hg]Blood Pressure Diastolic (8462-4)67 mm[Hg]11/08/2024 09:42 PMTemperature (8310-5)98.2 [degF] Oxygen Saturation (87947-0)96 %Respiratory Rate (9279-1)18 /minHeart Rate (8866-4)68 /minBlood Pressure Systolic (8480-6)126 mm[Hg]Blood Pressure Diastolic (8462-4)76 mm[Hg]11/11/2024 01:25 AMTemperature (8310-5)98 [degF] Oxygen Saturation (14100-8)97 %Respiratory Rate (9279-1)18 /minHeart Rate (8867-4)74 /minBlood Pressure Systolic (8480-6)128 mm[Hg]Blood Pressure Diastolic (8462-4)76 mm[Hg]11/10/2024 11:00 PMTemperature (8310-5)98.1 [degF] Oxygen Saturation (66618-0)97 %Respiratory Rate (9279-1)18 /minHeart Rate (8867-4)67 /minBlood Pressure Systolic (8480-6)131 mm[Hg]Blood Pressure Diastolic (8462-4)77 mm[Hg]11/11/2024 12:39 PMTemperature (8310-5)97.9 [degF] Oxygen Saturation (41443-7)98 %Respiratory Rate (9279-1)16 /minBlood Pressure Systolic (8480-6)122 mm[Hg]Blood Pressure Diastolic (8462-4)68 mm[Hg]11/11/2024 12:40 PMHeart Rate (8867-4)72 /min11/12/2024 02:32 AMTemperature (8310-5)98.5 [degF]Oxygen Saturation (37099-0)95 %Respiratory Rate (9279-1)18 /minHeart Rate (8867-4)88 /minBlood Pressure Systolic (8480-6)140 mm[Hg]Blood Pressure Diastolic (8462-4)78 mm[Hg]11/11/2024 10:36 PMTemperature (8310-5)99.4 [degF] Oxygen Saturation (67357-4)98 %Respiratory Rate (9279-1)16 /minHeart Rate (8867-4)75 /minBlood Pressure Systolic (8480-6)134 mm[Hg]Blood Pressure Diastolic (8462-4)70 mm[Hg]11/12/2024 10:06 AMTemperature (8310-5)98.6 [degF] Oxygen Saturation (92014-4)95 %Respiratory Rate (9279-1)16 /minHeart Rate (8867-4)78 /minBlood Pressure Systolic (8480-6)134 mm[Hg]Blood Pressure Diastolic (8462-4)68 mm[Hg]11/13/2024 09:43 AMTemperature (8310-5)97.9 [degF] Oxygen Saturation (81732-8)97 %Respiratory Rate (9279-1)18 /minHeart Rate (8866-4)76 /minBlood Pressure Systolic (8480-6)126 mm[Hg]Blood Pressure Diastolic (8462-4)70 mm[Hg]11/13/2024 05:49 AMTemperature (8310-5)98 [degF] Oxygen Saturation (93189-2)96 %Respiratory Rate (9279-1)16 /minHeart Rate (8867-4)78 /minBlood Pressure Systolic (8480-6)132 mm[Hg]Blood Pressure Diastolic (8462-4)74 mm[Hg]11/13/2024 12:19 AMTemperature (8310-5)98.4 [degF] Oxygen Saturation (03242-2)94 %Respiratory Rate (9279-1)16 /minHeart Rate (8867-4)75 /minBlood Pressure Systolic (8480-6)123 mm[Hg]Blood Pressure Diastolic (8462-4)54 mm[Hg]11/13/2024 05:10 PMTemperature (8310-5)98 [degF] Oxygen Saturation (21370-9)96 %Respiratory Rate (9279-1)18 /minHeart Rate (8867-4)69 /minBlood Pressure Systolic (8480-6)132 mm[Hg]Blood Pressure Diastolic (8462-4)74 mm[Hg]11/14/2024 01:23 AMTemperature (8310-5)98.3 [degF] Oxygen Saturation (59316-4)95 %Respiratory Rate (9279-1)16 /minHeart Rate (8867-4)70 /minBlood Pressure Systolic (8480-6)136 mm[Hg]Blood Pressure Diastolic (8462-4)68 mm[Hg]11/14/2024 11:31 AMOxygen Saturation (13031-3)96 % 11/14/2024 11:30 AMTemperature (8310-5)98.4 [degF]Respiratory Rate (9279-1)18 /minHeart Rate (8867-4)72 /minBlood Pressure Systolic (8480-6)134 mm[Hg]Blood Pressure Diastolic (8462-4)70 mm[Hg]11/14/2024 05:05 PMTemperature (8310-5)98 [degF]Oxygen Saturation (09299-4)96 %Respiratory Rate (9279-1)18 /minHeart Rate (8867-4)70 /minBlood Pressure Systolic (8480-6)127 mm[Hg]Blood Pressure Diastolic (8462-4)80 mm[Hg]11/15/2024 01:06 AMTemperature (8310-5)98.3 [degF] Oxygen Saturation (72695-8)95 %Respiratory Rate (9279-1)16 /minHeart Rate (8867-4)76 /minBlood Pressure Systolic (8480-6)128 mm[Hg]Blood Pressure Diastolic (8462-4)78 mm[Hg]11/15/2024 06:15 PMTemperature (8310-5)98.2 [degF] Oxygen Saturation (08704-3)97 %Respiratory Rate (9279-1)16 /minHeart Rate (8867-4)76 /minBlood Pressure Systolic (8480-6)118 mm[Hg]Blood Pressure Diastolic (8462-4)68 mm[Hg]11/15/2024 12:45 PMTemperature (8310-5)98.2 [degF] Oxygen Saturation (34962-5)96 %Respiratory Rate (9279-1)16 /minHeart Rate (8867-4)74 /minBlood Pressure Systolic (8480-6)120 mm[Hg]Blood Pressure Diastolic (8462-4)68 mm[Hg]11/15/2024 11:38 PMTemperature (8310-5)98.2 [degF] Respiratory Rate (9279-1)18 /minHeart Rate (8867-4)72 /minBlood Pressure Systolic (8480-6)124 mm[Hg]Blood Pressure Diastolic (8462-4)74 mm[Hg]11/16/2024 06:05 PMRespiratory Rate (9279-1)18 /min11/16/2024 06:04 PMTemperature (8310-5) 98.2 [degF]Oxygen Saturation (46539-0)95 %Heart Rate (8867-4)68 /minBlood Pressure Systolic (8480-6)128 mm[Hg]Blood Pressure Diastolic (8462-4)80 mm[Hg] 11/16/2024 12:48 PMTemperature (8310-5)98.4 [degF]Oxygen Saturation (72093-5)96 %Respiratory Rate (9279-1)16 /minHeart Rate (8867-4)70 /min11/17/2024 11:26 AM Temperature (8310-5)98.1 [degF]Oxygen Saturation (67687-1)98 %Respiratory Rate (9279-1)18 /minHeart Rate (8867-4)64 /minBlood Pressure Systolic (8480-6)126 mm[Hg]Blood Pressure Diastolic (8462-4)82 mm[Hg]11/18/2024 06:16 AMTemperature (8310-5)98.2 [degF]Oxygen Saturation (94769-0)98 %Respiratory Rate (9279-1)18 /minHeart Rate (8867-4)70 /minBlood Pressure Systolic (8480-6)126 mm[Hg]Blood Pressure Diastolic (8462-4)76 mm[Hg]11/17/2024 10:14 PMTemperature (8310-5)98.3 [degF]Oxygen Saturation (45179-2)95 %Respiratory Rate (9279-1)16 /minHeart Rate (8867-4)68 /minBlood Pressure Systolic (8480-6)128 mm[Hg]Blood Pressure Diastolic (8462-4)72 mm[Hg]11/18/2024 10:22 AMTemperature (8310-5)98.4 [degF] Oxygen Saturation (39631-7)98 %Respiratory Rate (9279-1)16 /minHeart Rate (8867-4)72 /min/ 07:00 PMTemperature (8310-5)98.3 [degF]Oxygen Saturation (36883-0)97 %Respiratory Rate (9279-1)18 /minHeart Rate (8867-4)76 /minBlood Pressure Systolic (8480-6)124 mm[Hg]Blood Pressure Diastolic (8462-4) 84 mm[Hg]11/19/2024 06:21 AMTemperature (8310-5)98 [degF]Oxygen Saturation (62997-6)98 %Respiratory Rate (9279-1)16 /minHeart Rate (8867-4)74 /minBlood Pressure Systolic (8480-6)122 mm[Hg]Blood Pressure Diastolic (8462-4)78 mm[Hg] 11/19/2024 11:11 AMTemperature (8310-5)98.3 [degF]Oxygen Saturation (81237-2)96 %Respiratory Rate (9279-1)18 /minHeart Rate (8867-4)70 /minBlood Pressure Systolic (8480-6)130 mm[Hg]Blood Pressure Diastolic (8462-4)68 mm[Hg]11/20/2024 06:25 AMTemperature (8310-5)98 [degF]Oxygen Saturation (80219-6)97 %Respiratory Rate (9279-1)16 /minHeart Rate (8867-4)64 /minBlood Pressure Systolic (8480-6) 132 mm[Hg]Blood Pressure Diastolic (8462-4)78 mm[Hg]11/19/2024 05:38 PM Temperature (8310-5)98.4 [degF]Oxygen Saturation (47809-4)98 %Respiratory Rate (9279-1)18 /minHeart Rate (8867-4)85 /minBlood Pressure Systolic (8480-6)124 mm[Hg]Blood Pressure Diastolic (8462-4)76 mm[Hg]11/20/2024 10:20 AMTemperature (8310-5)98.2 [degF]Oxygen Saturation (83275-3)98 %Respiratory Rate (9279-1)16 /minHeart Rate (8867-4)70 /min11/20/2024 08:51 PMTemperature (8310-5)98 [degF] Oxygen Saturation (52635-2)97 %Respiratory Rate (9279-1)16 /minHeart Rate (8867-4)68 /minBlood Pressure Systolic (8480-6)128 mm[Hg]Blood Pressure Diastolic (8462-4)75 mm[Hg]11/21/2024 01:22 AMTemperature (8310-5)98.2 [degF] Oxygen Saturation (86793-6)98 %Respiratory Rate (9279-1)18 /minHeart Rate (8867-4)72 /minBlood Pressure Systolic (8480-6)126 mm[Hg]Blood Pressure Diastolic (8462-4)72 mm[Hg]11/21/2024 12:09 PMTemperature (8310-5)98.3 [degF] Oxygen Saturation (62894-4)97 %Respiratory Rate (9279-1)18 /minHeart Rate (8867-4)68 /min11/21/2024 06:25 PMTemperature (8310-5)98.1 [degF]Oxygen Saturation (07448-4)97 %Respiratory Rate (9279-1)18 /minHeart Rate (8866-4)65 /minBlood Pressure Systolic (8480-6)130 mm[Hg]Blood Pressure Diastolic (8462-4) 67 mm[Hg]11/22/2024 01:38 AMTemperature (8310-5)98.4 [degF]Oxygen Saturation (29183-6)98 %Respiratory Rate (9279-1)18 /minHeart Rate (8867-4)69 /minBlood Pressure Systolic (8480-6)125 mm[Hg]Blood Pressure Diastolic (8462-4)60 mm[Hg] 11/22/2024 05:06 PMTemperature (8310-5)98.4 [degF]Oxygen Saturation (10348-6)98 %Respiratory Rate (9279-1)16 /minHeart Rate (8867-4)68 /minBlood Pressure Systolic (8480-6)128 mm[Hg]Blood Pressure Diastolic (8462-4)68 mm[Hg]11/22/2024 09:36 AMTemperature (8310-5)98.4 [degF]Oxygen Saturation (62811-9)97 % Respiratory Rate (9279-1)18 /minHeart Rate (8867-4)70 /minBlood Pressure Systolic (8480-6)118 mm[Hg]Blood Pressure Diastolic (8462-4)64 mm[Hg]11/26/2024 10:47 AMBody Weight (15568-8)196 [lb_av]Body Mass Index (36430-3)28.12 kg/m2 11/27/2024 10:25 PMTemperature (8310-5)98.2 [degF]Oxygen Saturation (86370-1)94 %Respiratory Rate (9279-1)18 /minHeart Rate (8867-4)68 /minBlood Pressure Systolic (8480-6)145 mm[Hg]Blood Pressure Diastolic (8462-4)78 mm[Hg]11/28/2024 12:07 PMTemperature (8310-5)98.2 [degF]Oxygen Saturation (31051-3)99 % Respiratory Rate (9279-1)18 /minHeart Rate (8867-4)66 /minBlood Pressure Systolic (8480-6)94 mm[Hg]Blood Pressure Diastolic (8462-4)54 mm[Hg]11/28/2024 12:32 PMBlood Pressure Systolic (8480-6)115 mm[Hg]Blood Pressure Diastolic (8462-4)62 mm[Hg]12/01/2024 03:26 PMBody Weight (73933-4)199 [lb_av]Body Mass Index (86170-0)28.55 kg/m212/27/2024 01:33 AMTemperature (8310-5)98.2 [degF] Oxygen Saturation (68492-8)95 %Respiratory Rate (9279-1)18 /minHeart Rate (8867-4)70 /minBlood Pressure Systolic (8480-6)132 mm[Hg]Blood Pressure Diastolic (8462-4)62 mm[Hg]12/28/2024 01:24 PMTemperature (8310-5)98 [degF] Oxygen Saturation (08329-0)96 %Respiratory Rate (9279-1)18 /minHeart Rate (8867-4)84 /minBlood Pressure Systolic (8480-6)128 mm[Hg]Blood Pressure Diastolic (8462-4)73 mm[Hg]12/28/2024 09:11 PMTemperature (8310-5)98 [degF] Oxygen Saturation (08228-2)97 %Respiratory Rate (9279-1)16 /minHeart Rate (8867-4)82 /minBlood Pressure Systolic (8480-6)118 mm[Hg]Blood Pressure Diastolic (8462-4)68 mm[Hg]12/29/2024 03:50 AMTemperature (8310-5)98 [degF] Oxygen Saturation (44185-9)96 %Respiratory Rate (9279-1)16 /minHeart Rate (8867-4)83 /minBlood Pressure Systolic (8480-6)118 mm[Hg]Blood Pressure Diastolic (8462-4)75 mm[Hg]12/29/2024 06:02 PMTemperature (8310-5)98.3 [degF] Oxygen Saturation (12301-7)95 %Respiratory Rate (9279-1)16 /minHeart Rate (8867-4)68 /minBlood Pressure Systolic (8480-6)108 mm[Hg]Blood Pressure Diastolic (8462-4)68 mm[Hg]12/29/2024 02:31 PMBody Weight (58926-3)192.8 [lb_av] Body Mass Index (14379-2)27.66 kg/m212/29/2024 09:48 AMTemperature (8310-5)98.1 [degF]Oxygen Saturation (05752-7)96 %Respiratory Rate (9279-1)18 /minHeart Rate (8867-4)76 /minBlood Pressure Systolic (8480-6)126 mm[Hg]Blood Pressure Diastolic (8462-4)72 mm[Hg]12/30/2024 12:55 AMTemperature (8310-5)97.9 [degF] Oxygen Saturation (77531-2)98 %Respiratory Rate (9279-1)16 /minHeart Rate (8867-4)60 /minBlood Pressure Systolic (8480-6)141 mm[Hg]Blood Pressure Diastolic (8462-4)77 mm[Hg]12/30/2024 03:16 PMTemperature (8310-5)97.8 [degF] Oxygen Saturation (04084-0)95 %Respiratory Rate (9279-1)16 /minHeart Rate (67-4)62 /minBlood Pressure Systolic (8480-6)148 mm[Hg]Blood Pressure Diastolic (8462-4)62 mm[Hg]12/30/2024 11:51 AMTemperature (8310-5)98 [degF] Oxygen Saturation (54650-8)98 %Respiratory Rate (9279-1)18 /minHeart Rate (8866-4)68 /minBlood Pressure Systolic (8480-6)128 mm[Hg]Blood Pressure Diastolic (8462-4)74 mm[Hg]12/31/2024 12:23 AMTemperature (8310-5)97.9 [degF] Oxygen Saturation (03463-1)96 %Respiratory Rate (9279-1)18 /minHeart Rate (8866-4)62 /minBlood Pressure Systolic (8480-6)132 mm[Hg]Blood Pressure Diastolic (8462-4)72 mm[Hg]12/31/2024 07:58 AMTemperature (8310-5)97.8 [degF] Oxygen Saturation (30214-1)94 %Respiratory Rate (79-1)16 /minHeart Rate (8866-4)60 /minBlood Pressure Systolic (8480-6)123 mm[Hg]Blood Pressure Diastolic (8462-4)62 mm[Hg]12/31/2024 03:36 PMTemperature (8310-5)98.2 [degF] Oxygen Saturation (51233-2)95 %Respiratory Rate (9279-1)18 /minHeart Rate (8867-4)64 /minBlood Pressure Systolic (8480-6)138 mm[Hg]Blood Pressure Diastolic (8462-4)76 mm[Hg]01/22/2025 03:11 PMBody Weight (23988-9)194.8 [lb_av] Body Mass Index (03117-8)27.95 kg/m201/29/2025 01:35 PMTemperature (8310-5)98.2 [degF]Oxygen Saturation (38361-3)95 %Respiratory Rate (9279-1)16 /minHeart Rate (8867-4)68 /minBlood Pressure Systolic (8480-6)106 mm[Hg]Blood Pressure Diastolic (8462-4)60 mm[Hg]01/30/2025 02:33 PMBody Weight (76608-0)193 [lb_av] Body Mass Index (41331-0)27.69 kg/m202/24/2025 01:50 PMBody Weight (25312-7) 192.6 [lb_av]Body Mass Index (43420-0)27.63 kg/m202/27/2025 02:38 AMTemperature (8310-5)98 [degF]Oxygen Saturation (18170-7)95 %Respiratory Rate (9279-1)14 /min Heart Rate (8867-4)56 /minBlood Pressure Systolic (8480-6)132 mm[Hg]Blood Pressure Diastolic (8462-4)71 mm[Hg]06/30/2025 02:19 PMBody Weight (26742-8) 200.4 [lb_av]Body Mass Index (95937-6)28.75 kg/m208 06:19 PMBody Weight (31983-4)201.2 [lb_av]Body Mass Index (65080-6)28.87 kg/m205/02/2025 08:05 AM Oxygen Saturation (11687-1)96 %Respiratory Rate (9279-1)18 /minHeart Rate (8867-4)56 /minBlood Pressure Systolic (8480-6)132 mm[Hg]Blood Pressure Diastolic (8462-4)72 mm[Hg]06/19/2025 12:48 PMTemperature (8310-5)98 [degF] 05/06/2025 10:38 AMTemperature (8310-5)98.2 [degF]Oxygen Saturation (12323-2)98 %Respiratory Rate (9279-1)16 /minHeart Rate (8867-4)62 /minBlood Pressure Systolic (8480-6)112 mm[Hg]Blood Pressure Diastolic (8462-4)63 mm[Hg]05/06/2025 11:21 AMBody Weight (47285-1)197.2 [lb_av]Body Mass Index (27410-9)28.29 kg/m2 06/27/2025 02:40 PMTemperature (8310-5)98.3 [degF]Oxygen Saturation (10648-5)94 %Respiratory Rate (9279-1)16 /minHeart Rate (8867-4)60 /minBlood Pressure Systolic (8480-6)148 mm[Hg]Blood Pressure Diastolic (8462-4)82 mm[Hg]05/20/2025 12:07 PMBody Weight (11276-9)198.2 [lb_av]Body Mass Index (12809-1)28.44 kg/m2 05/30/2025 06:16 PMTemperature (8310-5)97.8 [degF]Oxygen Saturation (51408-6)94 %Heart Rate (8867-4)59 /minBlood Pressure Systolic (8480-6)144 mm[Hg]Blood Pressure Diastolic (8462-4)72 mm[Hg]05/23/2025 03:03 PMBody Weight (15138-0) 196.5 [lb_av]Body Mass Index (27311-2)28.19 kg/m205/01/2025 11:52 PMRespiratory Rate (9279-1)05/04/2025 01:37 AMTemperature (8310-5)98.2 [degF]Oxygen Saturation (15649-8)95 %Respiratory Rate (9279-1)18 /minHeart Rate (8867-4)72 /minBlood Pressure Systolic (8480-6)134 mm[Hg]Blood Pressure Diastolic (8462-4) 84 mm[Hg]05/01/2025 09:19 AMRespiratory Rate (9279-1)05/28/2025 07:45 PM Temperature (8310-5)98.4 [degF]Oxygen Saturation (53645-6)95 %Heart Rate (8867-4)62 /minBlood Pressure Systolic (8480-6)132 mm[Hg]Blood Pressure Diastolic (8462-4)66 mm[Hg]05/02/2025 01:07 PMBody Weight (53938-8)192.4 [lb_av] Body Mass Index (85074-1)27.6 kg/m205/04/2025 09:04 AMTemperature (8310-5)98.1 [degF]Oxygen Saturation (39416-2)97 %Respiratory Rate (9279-1)18 /minHeart Rate (8867-4)62 /minBlood Pressure Systolic (8480-6)110 mm[Hg]Blood Pressure Diastolic (8462-4)60 mm[Hg]05/03/2025 08:32 AMTemperature (8310-5)98 [degF] Oxygen Saturation (75167-0)97 %Respiratory Rate (9279-1)18 /minHeart Rate (8867-4)55 /minBlood Pressure Systolic (8480-6)133 mm[Hg]Blood Pressure Diastolic (8462-4)58 mm[Hg]05/13/2025 02:37 PMBody Weight (57048-7)194.5 [lb_av] Body Mass Index (48425-0)27.9 kg/m205/05/2025 09:40 AMTemperature (8310-5)98.2 [degF]Oxygen Saturation (23290-6)97 %Respiratory Rate (9279-1)18 /minHeart Rate (8867-4)70 /minBlood Pressure Systolic (8480-6)116 mm[Hg]Blood Pressure Diastolic (8462-4)62 mm[Hg]06/18/2025 10:25 AMTemperature (8310-5)98 [degF] 05/01/2025 11:56 PMOxygen Saturation (17128-2)95 %Respiratory Rate (9279-1)16 /minHeart Rate (8867-4)62 /minBlood Pressure Systolic (8480-6)119 mm[Hg]Blood Pressure Diastolic (8462-4)67 mm[Hg]07/10/2025 09:48 PMTemperature (8310-5)98 [degF]Oxygen Saturation (74961-3)96 %Respiratory Rate (9279-1)21 /minHeart Rate (8867-4)56 /minBlood Pressure Systolic (8480-6)106 mm[Hg]Blood Pressure Diastolic (8462-4)60 mm[Hg]07/27/2025 12:51 AMBody Weight (01405-7)207.4 [lb_av] Body Mass Index (85429-9)29.76 kg/m207/28/2025 01:59 PMTemperature (8310-5)98.3 [degF]Respiratory Rate (9279-1)18 /minHeart Rate (8867-4)58 /minBlood Pressure Systolic (8480-6)125 mm[Hg]Blood Pressure Diastolic (8462-4)61 mm[Hg]Body Weight (23023-8)202 [lb_av]Body Mass Index (96701-9)28.98 kg/m208/01/2025 02:10 PM Temperature (8310-5)98.4 [degF]08/01/2025 05:17 PMTemperature (8310-5)98.5 [degF]08/01/2025 11:58 PMTemperature (8310-5)98.2 [degF]08/02/2025 09:56 AM Temperature (8310-5)97.4 [degF]08/02/2025 08:46 PMTemperature (8310-5)97.9 [degF]08/03/2025 06:55 AMTemperature (8310-5)98.2 [degF]08/03/2025 09:58 AM Temperature (8310-5)98.3 [degF]08/03/2025 04:35 PMTemperature (8310-5)98 [degF] 08/04/2025 02:31 AMTemperature (8310-5)98.2 [degF]08/04/2025 11:40 AMTemperature (8310-5)98.3 [degF]08/30/2025 02:51 PMBody Weight (58381-2)214.8 [lb_av]Body Mass Index (43523-5)30.82 kg/m208/31/2025 02:25 PMTemperature (8310-5)98.3 [degF]Oxygen Saturation (10415-7)94 %Respiratory Rate (9279-1)18 /minHeart Rate (8867-4)52 /minBlood Pressure Systolic (8480-6)160 mm[Hg]Blood Pressure Diastolic (8462-4)72 mm[Hg]08/31/2025 08:09 PMBody Weight (79386-2)208.6 [lb_av] Body Mass Index (36229-4)29.93 kg/m209/02/2025 03:17 PMBody Weight (16182-0) 213.2 [lb_av]Body Mass Index (52789-3)30.59 kg/m209/27/2025 02:56 PMBody Weight (64875-0)214.2 [lb_av]Body Mass Index (17802-6)30.73 kg/m210/01/2025 02:13 PM Temperature (8310-5)98.1 [degF]Oxygen Saturation (85256-5)95 %Respiratory Rate (9279-1)18 /minHeart Rate (8867-4)51 /minBlood Pressure Systolic (8480-6)156 mm[Hg]Blood Pressure Diastolic (8462-4)87 mm[Hg]10/06/2025 06:15 PMTemperature (8310-5)98 [degF]Oxygen Saturation (99797-4)95 %Respiratory Rate (9279-1)18 /min Heart Rate (8867-4)62 /minBlood Pressure Systolic (8480-6)155 mm[Hg]Blood Pressure Diastolic (8462-4)82 mm[Hg]10/07/2025 05:15 AMOxygen Saturation (93762-1)96 %10/07/2025 05:14 AMTemperature (8310-5)97.9 [degF]Respiratory Rate (9279-1)16 /minHeart Rate (8867-4)64 /minBlood Pressure Systolic (8480-6)126 mm[Hg]Blood Pressure Diastolic (8462-4)70 mm[Hg]10/07/2025 10:08 AMTemperature (8310-5)97.7 [degF]Oxygen Saturation (71394-8)95 %Respiratory Rate (9279-1)18 /minHeart Rate (8867-4)61 /minBlood Pressure Systolic (8480-6)152 mm[Hg]Blood Pressure Diastolic (8462-4)75 mm[Hg]10/20/2025 11:51 AMTemperature (8310-5)98.1 [degF]Oxygen Saturation (39421-8)96 %Respiratory Rate (9279-1)18 /minHeart Rate (8867-4)53 /minBlood Pressure Systolic (8480-6)120 mm[Hg]Blood Pressure Diastolic (8462-4)62 mm[Hg] Social History No smoking Hx information available Encounters Type CPT Code Date Location Provider Indication s encounter report 06/01/2024 03:30 PMVinnie Garza [id number]
--- OUTSIDE RECORDS SUMMARY | 2025-10-20 13:45 | XMS_ITS | Patient Health Record ---
Author Organization [facility] Address [address] [place] [address] Support Name Relationship Address Phone VASHTI MASSEY Guarantor Unknown Reason For Referral No Information Problems Problem Type SNOMED Code ICD Code Onset Dates Problem Status W/U Status Risk Notes Problem Osteoarthritis of knee (58131465 7) Primary osteoarthritis of left knee (M17.12) ActiveconfirmedProblemKnee joint effusion (016929658)Effusion, left knee (M25.462)ActiveconfirmedProblemFall ()Fall, initial encounter (W19.XXXA) ActiveconfirmedProblemCellulitis of left lower limb (65116431275303531)Left leg cellulitis (L03.116)Activeconfirmed Plan Of Treatment No Information Insurance Providers Payer Name Payer Address Payer Phone Subscriber Number Group Number Insured Name Patient Relationship to Insured Coverage Start Date Coverage End Date Medicare [employer] [address] [facility] [place] [phone] [id number] Tori MASSEY - patient is the insuredSelf Tori Orantes - patient is the insured
--- OUTSIDE RECORDS SUMMARY | 2025-10-20 13:46 | XMS_ITS | Clinical Summary ---
Author Organization [facility] Address [address] [place] [address] Care Team Providers Care Tanyard Worker Name Role Phone Vinnie Garza Primary Care Provider [phone] Allergies No known active allergies Medications MedicationSigDispense QuantityRefillsLast FilledStart DateEnd DateStatus meloxicam (Mobic) 15 MG tablet Take 15 mg by mouth in the morning.12/30/2023ctive atorvastatin (Lipitor) 40 MG tablet Take 40 mg by mouth DailyActive losartan (Cozaar) 25 MG tablet Daily01/23/2024ctive aspirin 81 MG EC tablet Daily10/30/2023ctive Lantus SoloStar 100 UNIT/ML pen ADMINISTER 15 UNITS UNDER THE SKIN AT BEDTIMEActive NovoLOG FLEXPEN 100 UNIT/ML pen INJECT 15 UNITS UNDER THE SKIN THREE TIMES DAILY01/17/2024ctive Family History Medical HistoryRelationNameCommentsStrokeFatherCancerMotherStrokeMotherRelation NameStatusCommentsFatherDeceasedMotherDeceased Social History Tobacco UseTypesPacks/DayYears UsedDateSmoking Tobacco: Never Tobacco Cessation:Counseling Given: Not Answered Alcohol UseStandard Drinks/WeekCommentsNot Currently0 (1 standard drink = 0.6 oz pure alcohol)Sex and Gender InformationValueDate RecordedSex Assigned at Not on fileLegal RzcCixg7701/08/2023 9:31 PM EDTGender IdentityNot on fileSexual OrientationNot on file Last Filed Vital Signs Vital SignReadingTime TakenCommentsBlood Quiarurr641/7905 12:00 PM EDT Pulse--Temperature--Respiratory Rate--Oxygen Saturation--Inhaled Oxygen Concentration--Ivoptc590 kg (257 lb)02/04/2024 10:02 AM WHTVjimzc090.3 cm (5' 11 )02/04/2024 10:02 AM EDTBody Mass Index35.8402/04/2024 10:02 AM EDT Plan of Treatment Not on file Insurance * Guarantor: Cesar Riveraccbj TypeRelation to PatientDate of PhoneBilling AddressPersonal/IyxhiuQaus1955 [facility] [address] [place] [address] Care Teams Team MemberRelationshipSpecialtyStart DateEnd Date Vinnie Garza DO [address] [place] [address] PCP - GeneralInternal Medicine02/17/25
[2025-10-20 13:47] LABS: Hematocrit 36.3 % (42.0-54.0); Hemoglobin 11.4 g/dL (14.0-18.0); Immature Granulocytes Abs Auto 0.02 10^3/uL (0.00-0.03); Immature Granulocytes Pct Auto 0.4 % (0.0-0.5); Lymphocytes Absolute Auto 1.3 10^3/uL (1.2-3.8); Mean Corpuscular HGB Conc 31.4 g/dL (29.9-35.2); Mean Corpuscular Hemoglobin 25.3 pg (25.9-34.0); Mean Corpuscular Volume 80.7 fL (80.0-94.0); Platelet Count 209 10^3/uL (150-450); Red Blood Count 4.50 10^6/uL (4.70-6.10); White Blood Count 4.6 10^3/uL (4.0-11.0)
[2025-10-20 13:56] LABS: Anion Gap 14.6; Blood Urea Nitrogen 16.0 mg/dL (7.0-18.0); Calcium 8.8 mg/dL (8.5-10.1); Carbon Dioxide 28.8 mmol/L (21.0-32.0); Chloride 102 mmol/L (98-107); Estimated GFR (African America >60 (>=60 mL/min/1.73m^2); Estimated GFR (Non-African Ame >60 (>=60 mL/min/1.73m^2); Glucose 143 mg/dL (74-106); Potassium 4.4 mmol/L (3.5-5.1); Sodium 141 mmol/L (136-145)
--- NOTE | 2025-10-20 14:03 | ED.GENADUL1 ---
HPI HPI - General Adult General Chief complaint: Urogenital-Male Stated complaint: HEMATURIA Time Seen by Provider: 10/20/25 13:08 Source: patient, medical record and other Source information: [facility] Mode of arrival: ambulance Limitations: physical limitation Limitations comment: L sided flaccidity from prev stroke History of Present Illness HPI narrative: Patient is a 70-year-old male presenting to the emergency department from [facility] for concerns of hematuria. The patient has a chronic indwelling Cyr catheter since 2022 for neurogenic bladder secondary to CVA. The patient has had multiple episodes of hematuria over the last 2 years. Over the last 1 month he has had persistent hematuria requiring multiple Cyr catheter exchanges. Today, the Cyr catheter was exchanged, and [facility] staff noted large amounts of gross hematuria. On arrival to our ED, the patient states he has some pressure in the lower part of his abdomen but is otherwise asymptomatic. He denies chest pain or shortness of breath. No fevers or chills. No lightheadedness, dizziness, palpitations, or any other acute concerns. He denies being on anticoagulation, and his alf paperwork confirms this. Related Data Home Medications ?Medication ?Instructions ?Recorded ?Confirmed aspirin 81 mg tablet,delayed 81 mg PO .QD 03/31/24 10/20/25 release Held on 10/29/24. Instructions: Resume on 10/31/24. flash glucose scanning reader 03/31/24 10/20/25 (FreeStyle Kathie 2 [place]) flash glucose sensor (FreeStyle 03/31/24 10/20/25 Kathie 2 Sensor kit) insulin glargine 100 unit/mL (3 15 unit subcut .QHS 03/31/24 10/20/25 mL) subcutaneous pen (Lantus Solostar U-100 Insulin) insulin syringe-needle U-100 1 mL 03/31/24 10/20/25 30 gauge x 7/16 atorvastatin 40 mg tablet 40 mg PO DAILY 06/05/24 10/20/25 gabapentin 100 mg capsule 100 mg PO TID 06/05/24 10/20/25 insulin lispro 100 unit/mL 1 sliding scale dose subcut ACHS 09/29/24 10/20/25 subcutaneous pen (Admelog SoloStar U-100 Insulin lispro) magnesium hydroxide 400 mg/5 mL 5 ml PO .qhs PRN constipation 09/29/24 10/20/25 oral suspension (Dulcolax (magnesium hydroxide)) magnesium oxide 400 mg PO DAILY 09/29/24 10/20/25 metoprolol succinate 50 mg 50 mg PO QDAY 09/29/24 10/20/25 tablet,extended release 24 hr polyethylene glycol 3350 17 17 g PO DAILY 09/29/24 10/20/25 gram/dose oral powder (ClearLax) acetaminophen 1,000 mg PO TID PRN pain 10/28/24 10/20/25 finasteride 5 mg tablet 5 mg PO DAILY 10/28/24 10/20/25 bisacodyl 10 mg rectal suppository 10 mg [place] DAILY PRN constipation 10/20/25 10/20/25 (Dulcolax (bisacodyl)) camphor-menthol 0.2 %-3.5 % 1 applic topical DAILY 10/20/25 10/20/25 topical gel (Freeze It Relief) docusate sodium 100 mg capsule 100 mg PO DAILY 10/20/25 10/20/25 (Colace) escitalopram oxalate 20 mg tablet 20 mg PO DAILY 10/20/25 10/20/25 (Lexapro) folic acid 1 mg tablet 1 mg PO DAILY 10/20/25 10/20/25 levetiracetam 500 mg tablet 500 mg PO BID 10/20/25 10/20/25 (Keppra) loperamide 2 mg capsule 2 mg PO TID PRN loose stool 10/20/25 10/20/25 melatonin 3 mg capsule 3 mg PO DAILY 10/20/25 10/20/25 mirtazapine 15 mg tablet (Remeron) 15 mg PO QDAY 10/20/25 10/20/25 polysaccharide iron complex 150 mg 150 mg PO DAILY 10/20/25 10/20/25 iron capsule (Ferrex) psyllium husk 3.4 gram/5.4 gram 1 tbsp PO DAILY 10/20/25 10/20/25 oral powder (Metamucil) tamsulosin 0.4 mg capsule 0.4 mg PO DAILY 10/20/25 10/20/25 Allergies Allergy/AdvReac Type Severity Reaction Status Date / Time No Known Drug Allergies Allergy Verified 10/20/25 13:05 Opioid HPI Opioid Management Most Recent Opioid Data: Last Pain Scale 8 08/04/25, 21:19 Last Pain Intensity 3 04/01/24, 10:16 Last ORT Total Score 4 10/28/24, 10:01 Last ORT Risk Category Moderate Risk 10/28/24, 10:01 Review of Systems ROS Status of ROS 10 or more systems reviewed and unremarkable except as noted in history and below [facility] Medical History Chronic indwelling Cyr catheter ?Z97.8 - Presence of other specified devices (ICD-10) H/O: stroke with residual effects ?I69.30 - Unspecified sequelae of cerebral infarction (ICD-10) CKD (chronic kidney disease) ?N18.9 - Chronic kidney disease, unspecified (ICD-10) CVA (cerebral vascular accident) ?I63.9 - Cerebral infarction, unspecified (ICD-10) Anxiety and depression ?F41.9 - Anxiety disorder, unspecified (ICD-10) ?F32.A - Depression, unspecified (ICD-10) Benign prostatic hyperplasia with lower urinary tract symptoms ?N40.1 - Benign prostatic hyperplasia with lower urinary tract symptoms (ICD-10) Hemiplegia affecting left nondominant side ?G81.94 - Hemiplegia, unspecified affecting left nondominant side (ICD-10) Hematoma ?T14.8XXA - Other injury of unspecified body region, initial encounter (ICD-10) Bursitis ?M71.9 - Bursopathy, unspecified (ICD-10) History of CVA (cerebrovascular accident) ?Z86.73 - Personal history of transient ischemic attack (TIA), and cerebral infarction without residual deficits (ICD-10) DM2 (diabetes mellitus, type 2) ?E11.9 - Type 2 diabetes mellitus without complications (ICD-10) Osteoarthritis ?M19.90 - Unspecified osteoarthritis, unspecified site (ICD-10) HTN (hypertension) ?I10 - Essential (primary) hypertension (ICD-10) Hyperlipidemia ?E78.5 - Hyperlipidemia, unspecified (ICD-10) Surgical History H/O repair of right rotator cuff ?Z98.890 - Other specified postprocedural states (ICD-10) History of total left knee replacement ?Z96.652 - Presence of left artificial knee joint (ICD-10) Family History Sister Family history of cancer Mother Family history of cancer Grandmother Family history of stroke Social History Within the past year, how often did you have a drink containing alcohol: never Score interpretation: A score less than 4 is consistent with normal alcohol consumption. Smoking status: Former smoker Non-prescribed substance use: denies use Highest level of school completed/degree received: high school graduate Little interest or pleasure in doing things: not at all Feeling down, depressed, or hopeless: not at all Exam Narrative Exam Narrative: CONSTITUTIONAL: Well-appearing, answering questions and following commands appropriately SKIN: Was warm and dry. EYES: Sclerae white. No conjunctival pallor. EARS, NOSE, THROAT: Moist oral mucosa. RESPIRATORY: Clear to auscultation bilaterally, no wheezes, crackles, or stridor, no use of accessory muscles CARDIOVASCULAR: Normal rate and regular rhythm. There is no S3, S4, murmur, rub. GASTROINTESTINAL: Abdomen is soft, nontender, nondistended. No rebound tenderness or guarding. Cyr catheter in place draining dark red gross hematuria. MUSCULOSKELETAL: No peripheral edema. NEUROLOGIC: Patient is awake and alert. Residual left-sided upper/lower extremity paresis consistent with his history of CVA. Facies were symmetrical. Constitutional Vital Signs, click to edit/add: Last Vital Signs Temp 98.4 F 10/20/25 13:05 Pulse 51 L 10/20/25 13:05 Resp 18 10/20/25 13:05 BP 147/69 H 10/20/25 13:05 Pulse Ox 96 10/20/25 13:05 O2 Del Method Room Air 10/20/25 13:05 Course Vital Signs Vital signs: Vital Signs Temperature 98.4 F 10/20/25 13:05 Pulse Rate 51 L 10/20/25 13:05 Respiratory Rate 18 10/20/25 13:05 Blood Pressure 147/69 H 10/20/25 13:05 Pulse Oximetry 96 10/20/25 13:05 Oxygen Delivery Method Room Air 10/20/25 13:05 Temperature 98.4 F 10/20/25 13:05 Pulse Rate 51 L 10/20/25 13:05 Respiratory Rate 18 10/20/25 13:05 Blood Pressure 147/69 H 10/20/25 13:05 Pulse Oximetry 96 10/20/25 13:05 Oxygen Delivery Method Room Air 10/20/25 13:05 Medical Decision Making MDM Narrative Medical decision making narrative: Patient is a 70-year-old male presenting to the emergency department via EMS from an extended care facility for evaluation of gross hematuria over the last month, acutely worsening today after Cyr catheter exchange. On review of external documentation, patient has a chronic indwelling Cyr catheter since his CVA in 2022. His vital signs on arrival are within normal limits. He is afebrile hemodynamic stable. The patient overall appears well and is asymptomatic. Examination was notable for gross hematuria in the Cyr catheter. Differential diagnoses include bladder outlet obstruction, hematuria, bladder malignancy, traumatic Cyr placement, hemorrhagic cystitis, or other urologic complications related to chronic indwelling Cyr catheter. IV was established and laboratory studies were obtained. CT abdomen/pelvis was ordered. Laboratory studies were unremarkable. No significant electrolyte or metabolic derangement. No evidence of acute kidney injury. No anemia, leukocytosis, or thrombocytopenia. Urinalysis was negative for acute infection, positive for hematuria. CT abdomen/pelvis independently reviewed and interpreted by myself and radiology demonstrated Cyr catheter in adequate position. Urinary bladder wall thickening adjacent stranding. Consideration for cystitis. High density material within the lumen suggesting stone and/or blood. No hydronephrosis. Non-obstructing ureteral stone. Bedside bladder scan demonstrated no evidence of urinary retention, with only 50 cc of fluid within the bladder. Upon initial manual irrigation, multiple large blood clots were evacuated with return bright red hematuria. The 24F Cyr catheter was then exchanged with a 24 [place] coud? three-way Cyr catheter. Further manual irrigation was performed with return of bright red blood clots. Continuous bladder irrigation was initiated. After short period of time, fluid was able to be instilled into the bladder, but was unable to be drained. I am concerned for persistent bleeding, bladder outlet obstruction, and clot formation. I do believe the patient requires transfer to higher level of care with urology for possible cystoscopy/clot evacuation. The patient's urologist is through [facility], however they are not on-call for the next week and the patient is unable to be transferred to [facility]. I did consult and discuss the patient with on-call urology at [facility], who recommended transfer to [facility] (which is where [facility] sends their patients when they are not on-call) Patient care will be transferred to Dr. Ruiz pending consultation with urology at [facility]. FINAL IMPRESSION: #Acute hematuria and bladder outlet obstruction #History of chronic indwelling Cyr catheter DISPOSITION: [facility] CONDITION: Good Lab Data Lab results reviewed: Yes I reviewed the patient's lab results Labs: Lab Results 10/20/25 10/20/25 Range/Units 13:40 15:15 WBC 4.6 (4.0-11.0) 10^3/uL RBC 4.50 L (4.70-6.10) 10^6/uL Hgb 11.4 L (14.0-18.0) g/dL Hct 36.3 L (42.0-54.0) % MCV 80.7 (80.0-94.0) fL MCH 25.3 L (25.9-34.0) pg MCHC 31.4 (29.9-35.2) g/dL RDW 14.7 (11.0-15.0) % Plt Count 209 (150-450) 10^3/uL MPV 9.3 L (9.5-13.5) fL Neut % (Auto) 55.7 (43.0-75.0) % Lymph % (Auto) 28.4 (20.5-60.0) % [place] % (Auto) 6.3 (1.7-12.0) % Eos % (Auto) 7.9 H (0.9-7.0) % Baso % (Auto) 1.3 (0.2-2.0) % Neut # (Auto) 2.5 (1.4-6.5) 10^3/uL Lymph # (Auto) 1.3 (1.2-3.8) 10^3/uL [place] # (Auto) 0.3 (0.3-0.8) 10^3/uL Eos # (Auto) 0.4 (0.0-0.7) 10^3/uL Baso # (Auto) 0.1 (0.0-0.1) 10^3/uL Abs Immat Gran (auto) 0.02 (0.00-0.03) 10^3/uL Imm/Tot Granulo (auto) 0.4 (0.0-0.5) % Sodium 141 (136-145) mmol/L Potassium 4.4 (3.5-5.1) mmol/L Chloride 102 (98-107) mmol/L Carbon Dioxide 28.8 (21.0-32.0) mmol/L Anion Gap 14.6 BUN 16.0 (7.0-18.0) mg/dL Creatinine 0.64 L (0.70-1.30) mg/dL Est GFR ( Amer) >60 (>=60 mL/min/1.73m^2) Est GFR (Non-Af Amer) >60 (>=60 mL/min/1.73m^2) BUN/Creatinine Ratio 25.0 Glucose 143 H (74-106) mg/dL Calcium 8.8 (8.5-10.1) mg/dL Urine Color Dk. red (YELLOW) Urine Clarity Cloudy A (CLEAR) Urine pH Color interference A (5.0-9.0) Ur Specific [place] 1.020 (1.005-1.025) Urine Protein Color interference A (NEG/TRACE) mg/dL Urine Glucose (UA) Color interference A (NEGATIVE) mg/dL Urine Ketones Color interference A (NEGATIVE) mg/dL Urine Occult Blood Color interference A (NEGATIVE) Urine Nitrite Color interference A (NEGATIVE) Urine Bilirubin Color interference A (NEGATIVE) Urine Urobilinogen Color interference A (0.2-1.0) EU/dL Ur Leukocyte Esterase Color interference A (NEGATIVE) Urine RBC >100 A (0-2) #/HPF Urine WBC 5-10 A (NONE SEEN) #/HPF Ur Squamous Epith Cells Rare (NONE/RARE) #/LPF Urine Crystals None seen (None Seen) #/HPF Urine Bacteria Trace A (NONE SEEN) #/HPF Urine Casts None seen (NONE SEEN) #/LPF Urine Mucus None seen (NONE SEEN) Ur Culture Indicated? [place] [place] scan - abdomen: Attestation: I personally reviewed and interpreted this imaging study as follows: Radiologist's impression: ITS Impressions Abdomen/Pelvis CT 10/20/25 13:11 IMPRESSION: Cyr catheter in adequate position. Urinary bladder wall thickening adjacent stranding. Consideration for cystitis. High density material within the lumen suggesting stone and/or blood. No hydronephrosis. No obstructing ureteral stone. Similar complex is cystic lesion left kidney. Bilateral small renal cysts. Cholelithiasis. Mild gallbladder distention. Impression dictated by: Javier Wu M.D. 10/20/2025 3:33 PM Dictation Location: [facility] Electronically authenticated by: [id number] Y Date: 10/20/2025 15:33 Discharge Plan Discharge Patient Disposition: Still a Patient
[2025-10-20] MEDS: HYDROMORPHONE HCL 0.5 MG/0.5 ML SYRINGE IV (15:11)
[2025-10-20 15:38] LABS: Glucose Urine UA COLOR INTERFERENCE mg/dL (NEGATIVE)
[2025-10-20 15:39] LABS: Cast Seen? NONE SEEN #/LPF (NONE SEEN); Crystals Seen? None Seen #/HPF (None Seen); Urine Culture Indicated YES-FRMC
[2025-10-20] MEDS: LIDOCAINE 2% JELLY 10 ML UR (17:10)
[2025-10-20] MEDS: OXYCODONE HCL 5 MG TABLET 10 MG PO (18:22)
[2025-10-20 19:08] VITALS: BP 107/56; PULSE 60; TEMP 36.6; O2SAT 94
--- NOTE | 2025-10-20 19:11 | PC.NURSE ---
i walked into this patient's room to find this patient sitting upright on the bed awake and alert talking on his cell phone. i introduced myself to this patient, and i informed him that we are working on possible transferring him to another hospital. [facility] suggested to transfer another bigger hospital. this patient voices no concerns needs and shows no signs of distress.
--- NOTE | 2025-10-20 20:07 | PC.NURSE ---
this patient awake and alert sitting upright on the bed watching tv, and voices no concerns, needs and shows no signs of distress. i informed this patient still waiting on a phone call from another hospital
--- NOTE | 2025-10-20 21:54 | PC.NURSE ---
this patient informed he will transferred to [facility] to room 311, and eta for transport will 22:50
[2025-10-20 22:34] VITALS: BP 111/54; PULSE 59; TEMP 37; O2SAT 94
--- NOTE | 2025-10-20 22:56 | PC.NURSE ---
[facility] here and I gave this crew patient report. i called [facility] [phone] and spoke withhakeem Lemos RN and i gave her this patient's report. this patient awake and alert and voices no complaints, i placed 2 personal clothing in a plastic bag. this patient has his cell phone inn his hand, and his cupola charger for this cell phone i placed in the clothing bag. I called [facility] and spoke with Skylar and informed her of that this patient is being transfer to [facility] room 311, phone # [phone], and she said she will call his family of this transfer for him
== END 2025-10-20 22:55 | disposition short-term general hospital (02) ==
PROVIDERS: Student in an Organized Health Care Education/Training Program; Emergency Provider Internal Medicine; PCP Internal Medicine
DX: R31.0 Gross hematuria (principal); N31.9 Neuromuscular dysfunction of bladder, unspecified; Z86.73 Personal history of transient ischemic attack (TIA), and cerebral infarction without residual deficits; Z87.891 Personal history of nicotine dependence; N13.9 Obstructive and reflux uropathy, unspecified
CPT/HCPCS: 36415; 51702; 74176; 80048; 81001; 85025; 87086; 87088; 87186; 96374; 99285; J1171